=== PATIENT | female | born 1985 | race Caucasian/White ===

== ENCOUNTER 2020-07-27 00:24 | Outpatient (CLI) | payer MEDICAID, SELFPAY ==
--- NOTE | 2020-07-27 07:30 | DI.MRI_ITS ---
EXAM: MR BRAIN WO CLINICAL HISTORY: worsening headaches, new facial paresthesias,r20.2,g43.009 TECHNIQUE: Multiplanar multisequence MRI of the brain was performed. COMPARISON: No exams were available for comparison FINDINGS: The ventricular system is normal in appearance. There is question of a tiny focus abnormal signal seen DIR space imaging in the CS sub insular white matter on the left. This is not visible on T2 weighted or FLAIR images. Otherwise no abnormal signa l in the brain. This is a nonspecific finding. The orbital and temporal bone structures appear intact as does the pituitary. Diffusion weighted imaging shows no evidence of infarction. Susceptibility weighted imaging shows no evidence of intracranial hemorrhage. There is normal flow void in the [place] of [place] vasculature. IMPRESSION: Normal brain MRI except for a tiny questionable high signal focus in left subinsular white matter the left. Nonspecific finding. DATA REPOSITORY:
== END 2020-07-27 00:44 ==
PROVIDERS: PCP Family Medicine; Visit Provider Nurse Practitioner Adult Health
DX: R51.9 Headache, unspecified (principal); R20.2 Paresthesia of skin
CPT/HCPCS: 70551

== ENCOUNTER 2020-09-18 18:33 | Observation (INO) | payer MEDICAID, SELFPAY ==
[2020-09-18 18:39] VITALS: BP 142/103; PULSE 119; RESP 20; TEMP 36.2; O2SAT 97
--- NOTE | 2020-09-18 18:56 | ED.GENADUL_ITS ---
Discharge Plan Disposition Patient Disposition: [facility] Condition: Stable Discharge Details Clinical Impression: Anxiety and depression Primary Care Provider: Lakhwinder Rust ED Provider: Kianna Eduardo Home Meds and New Rx's Prescriptions: No Action magnesium oxide 500 mg tablet 500 mg PO DAILY Qty: 90 RF: 2 famotidine 40 mg tablet 40 mg PO DAILY RF: 0 calcium carbonate [Tums] 300 mg (750 mg) tablet,chewable 300 mg PO BID PRNRF: 0 Ensure Liquid PO DAILY RF: 0 fluticasone propionate [Flonase Allergy Relief] 50 mcg/actuation spray,suspension 1 spray WILEY DAILY RF: 0 ipratropium-albuterol 0.5 mg-3 mg(2.5 mg base)/3 mL solution for nebulization 3 ml IH QID PRNRF: 0 (DME) nebulizers Misc See Rx Instructions .ROUTE .MEDSUPPLY Qty: 1 RF: 0 prazosin 1 mg capsule 1 mg PO TID RF: 0 Flovent HFA 44 mcg/actuation HFA aerosol inhaler 2 puff IH BID RF: 0 cetirizine 10 mg tablet 10 mg PO DAILY RF: 0 albuterol sulfate [Proventil HFA] 90 mcg/actuation HFA aerosol inhaler 2 puff IH Q4H PRNRF: 0 lisinopril 10 mg tablet 10 mg PO DAILY RF: 0 polyethylene glycol 3350 [Miralax] 17 gram/dose powder 17 gm PO DAILY RF: 0 diazepam [Valium] 5 mg tablet 5 mg PO TID PRNRF: 0 omeprazole magnesium [Prilosec OTC] 20 mg tablet,delayed release (DR/EC) 20 mg PO DAILY RF: 0 Lidocaine Viscous 2 % solution 1 applic MM .Q 3HR RF: 0 sucralfate 1 gram tablet 1 gm PO TID RF: 0 ondansetron HCl [Zofran] 4 mg Tablet 4 mg PO Q6H PRNRF: 0 Discharge Instructions Instructions: Depression (ED), Anxiety (ED) Referrals: Lakhwinder Rust [Primary Care Provider] - (when discharged from inpatient psychiatric facility) Medical Decision Making patient presents for routine psychiatric evaluation, routine labs sent, cpso initiated. she is given GI cocktail with no relief. she requests something for anxiety. given hydroxyzine with improvement in her symptoms. labs reviewed and show signs of mild dehydration which was anticipated d/t anorexia. no electrolyte abnormalities. given 1 liter of NS. voiding well and taking PO fluids. continues to report improvement since presentation. Patient is medically cleared and ready for mental health evaluation which is completed via zoom meeting. she is agreeable to inpatient psychiatric treatment for her anxiey/depression. [place] with bed availability so rapid in house covid testing ordered Medical Records Medical records reviewed: Yes I reviewed the patient's medical records. Lab Data Lab results reviewed: Yes I reviewed the patient's lab results. Lab results narrative: Laboratory Tests Range/Units 09/18/20 09/18/20 09/18/20 19:00 19:00 19:00 WBC (4.4-10.8) 10^3/uL 14.66 H RBC (3.93-5.22) 10^6/uL 4.91 Hgb (11.2-15.7) g/dL 13.2 Hct (36.0-46.0) % 41.5 MCV (80-95) fL 84.5 MCH (27.0-33.0) pg 26.9 L MCHC (32.0-36.0) % 31.8 L RDW (11.7-14.6) % 14.3 Plt Count (130-400) 10^3/uL 305 MPV (8.0-11.0) fL 11.7 H Immature Gran % See Differential Neutrophils % 75.0 Band Neutrophils % 2 Lymphocytes % 14.0 Monocytes % 8.0 Eosinophils % 1.0 Basophils % 0.0 Nucleated RBC % % 0 Absolute Neutrophils (1.2-6.7) 10^3/uL 11.29 H Absolute Lymphocytes (1.2-3.4) 10^3/uL 2.05 Absolute Monocytes (0.1-0.8) 10^3/uL 1.17 H Absolute Eosinophils (0.0-0.7) 10^3/uL 0.15 Absolute Basophils (0.0-0.2) 10^3/uL 0.00 RBC Morphology Normal Sodium (136-145) mmol/L 137 Potassium (3.5-5.1) mmol/L 3.5 Chloride (98-107) mmol/L 101 Carbon Dioxide (21.0-32.0) mmol/L 26.4 Anion Gap (3-11) mmol/L 9.6 BUN (7-18) mg/dL 16 Creatinine (0.55-1.02) mg/dL 1.13 H Estimated GFR/1.73 m2 (mL/min/1.73m2) 54.48 Glucose (74-106) mg/dL 109 H Calcium (8.5-10.1) mg/dL 9.1 Total Bilirubin (0.2-1.0) mg/dL 0.4 AST (15-37) U/L 12 L ALT (14-59) U/L 22 Alkaline Phosphatase (46-116) U/L 93 Total Protein (6.4-8.2) g/dL 8.4 H Albumin (3.4-5.0) g/dL 4.5 TSH (0.36-3.74) uIU/mL 2.00 Urine Color (Yellow) Urine Clarity (Clear) Urine pH (5-8) Ur Specific [place] (1.005-1.025) Urine Protein (Negative) mg/dL Urine Ketones (Negative) mg/dL Urine Blood (Negative) Urine Nitrite (Negative) Urine Bilirubin (Negative) Urine Urobilinogen (Up TO 0.2) EU/dL Ur Leukocyte Esterase (Negative) Urine Glucose (Negative) mg/dL Salicylates (2.8-20.0) mg/dL 4.3 Acetaminophen (10-30) ug/mL < 2 Ethyl Alcohol (<3) mg/dL < 3.0 Range/Units 09/18/20 20:17 WBC (4.4-10.8) 10^3/uL RBC (3.93-5.22) 10^6/uL Hgb (11.2-15.7) g/dL Hct (36.0-46.0) % MCV (80-95) fL MCH (27.0-33.0) pg MCHC (32.0-36.0) % RDW (11.7-14.6) % Plt Count (130-400) 10^3/uL MPV (8.0-11.0) fL Immature Gran % Neutrophils % Band Neutrophils % Lymphocytes % Monocytes % Eosinophils % Basophils % Nucleated RBC % % Absolute Neutrophils (1.2-6.7) 10^3/uL Absolute Lymphocytes (1.2-3.4) 10^3/uL Absolute Monocytes (0.1-0.8) 10^3/uL Absolute Eosinophils (0.0-0.7) 10^3/uL Absolute Basophils (0.0-0.2) 10^3/uL RBC Morphology Sodium (136-145) mmol/L Potassium (3.5-5.1) mmol/L Chloride (98-107) mmol/L Carbon Dioxide (21.0-32.0) mmol/L Anion Gap (3-11) mmol/L BUN (7-18) mg/dL Creatinine (0.55-1.02) mg/dL Estimated GFR/1.73 m2 (mL/min/1.73m2) Glucose (74-106) mg/dL Calcium (8.5-10.1) mg/dL Total Bilirubin (0.2-1.0) mg/dL AST (15-37) U/L ALT (14-59) U/L Alkaline Phosphatase (46-116) U/L Total Protein (6.4-8.2) g/dL Albumin (3.4-5.0) g/dL TSH (0.36-3.74) uIU/mL Urine Color (Yellow) Yellow Urine Clarity (Clear) Clear Urine pH (5-8) 6.0 Ur Specific [place] (1.005-1.025) >= 1.030 H Urine Protein (Negative) mg/dL Negative Urine Ketones (Negative) mg/dL Trace H Urine Blood (Negative) Negative Urine Nitrite (Negative) Negative Urine Bilirubin (Negative) Negative Urine Urobilinogen (Up TO 0.2) EU/dL 0.2 Ur Leukocyte Esterase (Negative) Negative Urine Glucose (Negative) mg/dL Negative Salicylates (2.8-20.0) mg/dL Acetaminophen (10-30) ug/mL Ethyl Alcohol (<3) mg/dL HPI General Mode of arrival: ambulatory . Date/Time Provider Initiated Documentation: 09/18/20 18:33 . Information obtained by: patient . HPI Narrative: Presents with a several day history of anxiety associated with her symptoms of heartburn. She states she has a longstanding history of heartburn and has seen her primary care provider for this she is taking famotidine Carafate and omeprazole. She has recently been switched to pantoprazole but have been not pick that prescription up yet. She states that her p.o. intake has been poor secondary to her symptoms. She denies any dysphagia. She has had no fevers cough shortness of breath chest pain abdominal pain diarrhea or bloody stool. She states her anxiety is longstanding and she has had multiple inpatient psychiatric admissions over the past 15 years. She states she no longer feels safe due to her anxiety surrounding the symptoms and I do not want to live like this anymore Related Data Home Medications Medication Instructions Recorded Confirmed albuterol sulfate 90 mcg/actuation 2 puff IH Q4H PRN gm 05/09/20 09/18/20 aerosol inhaler cetirizine 10 mg tablet 10 mg PO DAILY 05/09/20 09/18/20 diazepam 5 mg tablet 5 mg PO TID PRN 05/09/20 09/18/20 fluticasone propionate 44 2 puff IH BID 05/09/20 09/18/20 mcg/actuation HFA aerosol inhaler fluticasone propionate 50 1 spray WILEY DAILY 05/09/20 09/18/20 mcg/actuation nasal spray,suspension food supplemt, lactose-reduced ml PO DAILY ml 05/09/20 09/13/20 ipratropium 0.5 mg-albuterol 3 mg 3 ml IH QID PRN 05/09/20 09/18/20 (2.5 mg base)/3 mL nebulization soln lidocaine HCl 2 % mucosal solution 1 applic MM .Q 3HR ml 05/09/20 09/18/20 lisinopril 10 mg tablet 10 mg PO DAILY 05/09/20 09/18/20 nebulizers #1 each 05/09/20 09/13/20 omeprazole magnesium 20 mg 20 mg PO DAILY 05/09/20 09/18/20 tablet,delayed release polyethylene glycol 3350 17 17 gm PO DAILY 05/09/20 09/18/20 gram/dose oral powder prazosin 1 mg capsule 1 mg PO TID cap 05/09/20 09/18/20 sucralfate 1 gram tablet 1 gm PO TID tab 05/09/20 09/18/20 magnesium oxide 500 mg tablet 500 mg PO DAILY #90 tab 07/13/20 09/18/20 calcium carbonate 300 mg (750 mg) 300 mg PO BID PRN 09/13/20 09/18/20 chewable tablet famotidine 40 mg tablet 40 mg PO DAILY 09/13/20 09/18/20 ondansetron HCl [Zofran] 4 mg PO Q6H PRN 09/18/20 09/18/20 Previous Rx's Medication Instructions Recorded magnesium oxide 500 mg tablet 500 mg PO DAILY #90 tab 07/13/20 Allergies Allergy/AdvReac Type Severity Reaction Status Date / Time amoxicillin [From Augmentin] Allergy Intermediate GI Verified 09/18/20 18:46 clavulanic acid Allergy Intermediate GI Verified 09/18/20 18:46 [From Augmentin] morphine Allergy Mild muscle pain Verified 09/18/20 18:46 quetiapine [From Seroquel] Allergy Mild nausea,anxi Verified 09/18/20 18:46 ety General Stated Complaint: PsychEval STEPHANIE: 2 Review of Systems All systems reviewed & are unremarkable except as noted in HPI and below Constitutional Constitutional: Reports anorexia, Reports difficulty sleeping, Reports poor appetite and Reports weakness Eyes Eyes: Denies change in vision ENT Ears, Nose, Mouth, and Throat: Denies dysphagia, Denies vertigo and Denies dizziness Cardiovascular Cardiovascular: Denies chest pain and Denies dyspnea Respiratory Respiratory: Denies cough and Denies dyspnea Gastrointestinal Gastrointestinal: Denies abdominal pain, Denies hematochezia, Denies change in bowel habits, Denies constipation, Denies dysphagia, Reports heartburn, Denies diarrhea, Denies nausea and Denies vomiting Genitourinary Genitourinary: Denies difficulty voiding Musculoskeletal Musculoskeletal: Denies back pain Neurologic Neurologic: Denies vertigo, Denies dizziness and Reports weakness Psychiatric Psychiatric: Reports anxiety, Reports change in appetite, Reports depression, Reports hopelessness and Reports suicidal ideation COUNT INCLUDES THE [facility] Medical History Allergic rhinitis Anorexia Anxiety disorder Asthma Flaherty's palsy Bipolar 1 disorder Cigarette nicotine dependence Constipation Essential hypertension Facial paresthesia GERD (gastroesophageal reflux disease) Low back pain Major depressive disorder Migraine headache without aura Reactive airway disease Recurrent sinus infections Subacute vaginitis Substance abuse Surgical History History of dilation and curettage Family History Father , 42 YEARS ALCOHOLIC Alcohol abuse Heat exhaustion Pneumonia Maternal Uncle Pulmonary arterial hypertension Social History (Reviewed 09/13/20 @ 13:04 by Roseann Alvarenga Smoking/Tobacco Use Status: Current every day Tobacco Type: cigarettes Smoking risk assessment performed?: Yes Alcohol Intake: never Drug use: Never Pets and animals: No What type of physical activity do you participate in: none Seatbelt use: always Do you feel safe at home: Yes Do you feel safe in your relationship?: Yes Exam Const General: cooperative and disheveled Nutritional Appearance: average body habitus Orientation: alert, awake and oriented x3 HENMT Head: normal to inspection, normocephalic and atraumatic Mouth: moist mucous membranes abnormal (slightly dry) Resp Effort & Inspection: normal respiratory effort Cardio Rate: tachycardic Rhythm: regular rhythm GI Inspection: normal to inspection Palpation: soft Auscultation: normal bowel sounds Skin General skin exam: no rashes or lesions noted Neuro General: patient alert, patient awake, patient oriented x3, moves all extremities and no focal motor deficits Cognition: normal cognition Speech: speech normal Extrem General: normal to inspection, full ROM and no pedal edema Psych Appearance: disheveled Mental Status: mental status grossly normal Speech and Movement: speech and movement normal Mood: anxious mood Affect: blunted Attitude: cooperative Insight: fair Judgment: fair Course Vital Signs Vital signs: Vital Signs Temperature 36.2 C L 09/18/20 18:39 Pulse 119 H 09/18/20 18:39 Respiratory Rate 20 09/18/20 18:39 Blood Pressure 142/103 H 09/18/20 18:39 Pulse Oximetry 97 09/18/20 18:39 Temperature 36.2 C L 09/18/20 18:39 Temperature Source Skin 09/18/20 18:39 Pulse 119 H 09/18/20 18:39 Respiratory Rate 20 09/18/20 18:39 Respiratory Effort Non-Labored 09/18/20 18:52 Blood Pressure 142/103 H 09/18/20 18:39 Blood Pressure Position Sitting 09/18/20 18:39 Pulse Oximetry 97 09/18/20 18:39 Oxygen Delivery Method Room Air 09/18/20 18:39 Oxygen Flow Rate 0 09/18/20 18:39 Pain Level 8 09/18/20 18:39 Comment 09/18/20 18:39
[2020-09-18 19:10] LABS: Abs Immature Grans 0.04 10^3/uL (0.0-0.06); HCT 41.5 % (36.0-46.0); HGB 13.2 g/dL (11.2-15.7); MCH 26.9 pg (27.0-33.0); MCHC 31.8 % (32.0-36.0); MCV 84.5 fL (80-95); MPV 11.7 fL (8.0-11.0); Nucleated RBC 0 %; Platelet Count 305 10^3/uL (130-400); RBC 4.91 10^6/uL (3.93-5.22); RDW 14.3 % (11.7-14.6); RDW-SD 43.8 fL
[2020-09-18 19:25] LABS: Absolute Eosinophil Count 0.15 10^3/uL (0.0-0.7); Absolute Lymphocyte Count 2.05 10^3/uL (1.2-3.4); Absolute Monocyte Count 1.17 10^3/uL (0.1-0.8); Absolute Neutrophil Count 11.29 10^3/uL (1.2-6.7); Bands % 2; Diff Comment Manual Differential; RBC Morphology Normal
[2020-09-18 19:26] LABS: WBC 14.66 10^3/uL (4.4-10.8)
[2020-09-18 19:33] LABS: ALT 22 U/L (14-59); AST 12 U/L (15-37); Albumin 4.5 g/dL (3.4-5.0); Alkaline Phosphatase 93 U/L (46-116); Anion Gap 9.6 mmol/L (3-11); BUN 16 mg/dL (7-18); Bilirubin, Total 0.4 mg/dL (0.2-1.0); CO2 26.4 mmol/L (21.0-32.0); CREATININE 1.13 mg/dL (0.55-1.02); Calcium 9.1 mg/dL (8.5-10.1); Chloride 101 mmol/L (98-107); Estimated GFR 54.48 (mL/min/1.73m2); Glucose 109 mg/dL (74-106); Potassium 3.5 mmol/L (3.5-5.1); Sodium 137 mmol/L (136-145); Total Protein 8.4 g/dL (6.4-8.2)
[2020-09-18 19:46] LABS: ETHANOL BLOOD < 3.0 mg/dL (<3)
[2020-09-18 19:48] LABS: Salicylate 4.3 mg/dL (2.8-20.0)
[2020-09-18 19:49] LABS: Acetaminophen < 2 ug/mL (10-30)
--- NOTE | 2020-09-18 19:50 | PDOC.CMSAFED ---
- If Service Date Differs Date of service: 09/18/20 Time of Service: 19:50 Care Management Safety Plan Chief Complaint: Aniya is a 35 year old female with a history of bipolar disorder, anxiety, depression, and self-harming (cutting) behaviors. Aniya reportedly had a knife earlier this evening and was threatening to harm herself. A family member called the police and Aniya was subsequently driven to the emergency department for a psychiatric evaluation. SYBIL Joel, spoke on the telephone with Aniya Root's demar, and he reported to her that Aniya has had such severe stomach pain for several months now and the pain is so severe she can't eat and can't sleep. The pain has caused Aniya to lose weight and become increasingly more depressed to the point that she is now suicidal. Aniya is seeking a voluntary psych placement. A referral has been made to the [facility]. [facility]. Patient is appropriate in all interactions since arriving at [facility]; Pt has demonstrated appropriate coping and communication skills, has articulated her needs and concerns and is fully engaged during staff interactions. Safety plan has been established with patient, and care team, to adhere to patient goals, identify restrictions based on behavioral status, address nutrition, and determine allowed personal belongings, tools for hygiene and personal care. Determine level of activity including ambulation, level of supervision, visitors, and determine privileges based on behaviors and level of engagement by pt. SAFETY PLAN: 1. Will remain on suicide precautions and in paper clothes. 2. Will remain in room under direct supervision of one-on-one staff at all times provided by [employer], KENDRICK, CLINICAL LAB ASSISTANT life skills coordinator volunteer. 3. May have paper cups, plates, finger foods as well as a cardboard spoon with which to eat meals. 4. Follow [facility] Management of the Admitted Behavioral Health Patient policy. 5. Comfort bath system only. 6. No personal belongings. 7. Visitors-No visitors at this time 8. Activities: Soft tip markers, paper, television when available, and other activities at nursing discretion. 9. Bathroom privileges: While in the ED, must be accompanied by staff. If patient is moved to Med/Surg, she will be allowed to use the bathroom in her room without supervision. 10. Phone: Patient is allowed to keep her cell phone and is allowed incoming and outgoing telephone calls to her fiance Dk, at nursing discretion. 11. Due to VOLUNTARY status, if patient wishes to leave [facility], the [facility] mop worker must be contacted to re-evaluate patient prior to patient exiting the building. Patient is currently voluntarily at [facility] and seeking inpatient admission when a bed becomes available. [facility] [employer] [employer] will continue seeking placement. Please contact the [employer] Aide Drill Runner ([phone]) and [facility] [employer] ([phone]) for any needed changes in the Safety Plan. Safety plan has been provided to interdepartmental care team.
[2020-09-18] MEDS: Acetaminophen 500 MG TAB 1000 MG PO (20:02)
[2020-09-18] MEDS: hydrOXYzine HCL 50 MG TAB PO (20:10)
[2020-09-18 20:31] LABS: Bilirubin Negative (Negative); Blood Negative (Negative); Clarity Clear (Clear); Glucose Negative (Negative); Ketones Trace mg/dL (Negative); Leukocyte Esterase Negative (Negative); Nitrite Negative (Negative); Specific Gravity >= 1.030 (1.005-1.025); Urobilinogen 0.2 EU/dL (Up TO 0.2)
[2020-09-18 20:52] LABS: *AMPHETAMINES SCREEN URINE Negative (Negative); *BARBITURATES SCREEN URINE Negative (Negative); *BENZODIAZEPINES SCREEN URINE POSITIVE (Negative); Cannabinoids THC Negative (Negative); Cocaine Screen,Urine Negative (Negative); METHADONE URINE SCREEN Negative (Negative); OPIATES URINE SCREEN Negative (Negative)
[2020-09-18 20:58] LABS: Tricyclic Antidepressants Negative (Negative)
[2020-09-18] MEDS: Normal Saline 1,000 ML 1000 ML IV (21:15)
[2020-09-18 23:02] LABS: Source Nasopharynx
[2020-09-18] MEDS: Pantoprazole 40 MG VIAL IVP (23:21)
[2020-09-18 23:34] VITALS: BP 136/86; PULSE 66; RESP 14; O2SAT 99
--- NOTE | 2020-09-18 23:41 | W.PM.HP.N ---
Date of service: 09/18/20 Time of Service: 23:41 Assessment and Plan Assessment and plan (1) Anxiety and depression: Status: Chronic Assessment and plan: Anxiety/depression: agree with inpatient management, will stand by for transfer to [place]. Will continue current regimen along with prn Vistaril, which seems to have helped. Medically, not entirely clear that her GI sxx are to be ascribed to GERD given persistence despite fairly comprehensive drug regimen. Perhaps a psychosomatic element given apparent response to Vistaril, or perhaps an as yet unspecified GI factor to be considered (esophageal spasm, consider manometry). There is also the modest leukocytosis, which at this point does not appear to have a specific medical correlate. For completeness sake I might add a lipase to exclude atypical pancreatitis and would also consider U/S to exclude biliary pathology, though both I would regard as unlikely. History of Present Illness History of Present Illness Chief Complaint: anxiety, depression Narrative: 35 female with long history of anxiety and depression, multiple admissions for same; has been having issues with increasing symptomatology over past weeks, along with exacerbation of long standing heartburn type symptoms for which she is on PPI/Carafate/H2 nash combination regimen. Has been recently talking about self harm (no specific plan) and came to ER for evaluation. In ER w/u neg save for leukocytosis of 14. No response to GI cocktail, but improved with Hydroxyzine. Accepted at [place] pending Covid results. Admitted pending transfer. Review of Systems All systems reviewed & are unremarkable except as noted in HPI and below PFSH Medical History Allergic rhinitis Anorexia Anxiety disorder Asthma Flaherty's palsy Bipolar 1 disorder Cigarette nicotine dependence Constipation Essential hypertension Facial paresthesia GERD (gastroesophageal reflux disease) Low back pain Major depressive disorder Migraine headache without aura Reactive airway disease Recurrent sinus infections Subacute vaginitis Substance abuse Surgical History History of dilation and curettage Family History Father , 42 YEARS ALCOHOLIC Alcohol abuse Heat exhaustion Pneumonia Maternal Uncle Pulmonary arterial hypertension Social History Smoking/Tobacco Use Status: Current every day Tobacco Type: cigarettes Smoking risk assessment performed?: Yes Alcohol Intake: never Drug use: Never Pets and animals: No What type of physical activity do you participate in: none Seatbelt use: always Do you feel safe at home: Yes Do you feel safe in your relationship?: Yes Meds Home Medications and Allergies Home Medications Medication Instructions Recorded Confirmed Type albuterol sulfate 90 mcg/actuation 2 puff IH Q4H PRN gm 05/09/20 09/18/20 History aerosol inhaler cetirizine 10 mg tablet 10 mg PO DAILY 05/09/20 09/18/20 History diazepam 5 mg tablet 5 mg PO TID PRN 05/09/20 09/18/20 History fluticasone propionate 44 2 puff IH BID 05/09/20 09/18/20 History mcg/actuation HFA aerosol inhaler fluticasone propionate 50 1 spray WILEY DAILY 05/09/20 09/18/20 History mcg/actuation nasal spray,suspension food supplemt, lactose-reduced ml PO DAILY ml 05/09/20 09/13/20 History ipratropium 0.5 mg-albuterol 3 mg 3 ml IH QID PRN 05/09/20 09/18/20 History (2.5 mg base)/3 mL nebulization soln lidocaine HCl 2 % mucosal solution 1 applic MM .Q 3HR ml 05/09/20 09/18/20 History lisinopril 10 mg tablet 10 mg PO DAILY 05/09/20 09/18/20 History nebulizers #1 each 05/09/20 09/13/20 History omeprazole magnesium 20 mg 20 mg PO DAILY 05/09/20 09/18/20 History tablet,delayed release polyethylene glycol 3350 17 17 gm PO DAILY 05/09/20 09/18/20 History gram/dose oral powder prazosin 1 mg capsule 1 mg PO TID cap 05/09/20 09/18/20 History sucralfate 1 gram tablet 1 gm PO TID tab 05/09/20 09/18/20 History magnesium oxide 500 mg tablet 500 mg PO DAILY #90 tab 07/13/20 09/18/20 Rx calcium carbonate 300 mg (750 mg) 300 mg PO BID PRN 09/13/20 09/18/20 History chewable tablet famotidine 40 mg tablet 40 mg PO DAILY 09/13/20 09/18/20 History ondansetron HCl [Zofran] 4 mg PO Q6H PRN 09/18/20 09/18/20 History Allergies Allergy/AdvReac Type Severity Reaction Status Date / Time amoxicillin [From Augmentin] Allergy Intermediate GI Verified 09/18/20 18:46 clavulanic acid Allergy Intermediate GI Verified 09/18/20 18:46 [From Augmentin] morphine Allergy Mild muscle pain Verified 09/18/20 18:46 quetiapine [From Seroquel] Allergy Mild nausea,anxi Verified 09/18/20 18:46 ety Exam Narrative Exam Narrative: 136/86, 66, 36.2, 14, 99% RA. HEENT unremarkable; neck supple; lungs clear; heart RRR w/o MRG; abdomen +BS, soft and NT; extremities w/o edema; neuro Ox3, somewhat flat affect, nonfocal Results Labs Result diagrams: 09/18/20 19:00 09/18/20 19:00 Labs: Laboratory Results - last 24 hr 09/18/20 09/18/20 09/18/20 19:00 19:00 19:00 WBC 14.66 H RBC 4.91 Hgb 13.2 Hct 41.5 MCV 84.5 MCH 26.9 L MCHC 31.8 L RDW 14.3 Plt Count 305 MPV 11.7 H Immature Gran % See Differential Neutrophils % 75.0 Band Neutrophils % 2 Lymphocytes % 14.0 Monocytes % 8.0 Eosinophils % 1.0 Basophils % 0.0 Nucleated RBC % 0 Absolute Neutrophils 11.29 H Absolute Lymphocytes 2.05 Absolute Monocytes 1.17 H Absolute Eosinophils 0.15 Absolute Basophils 0.00 RBC Morphology Normal Sodium 137 Potassium 3.5 Chloride 101 Carbon Dioxide 26.4 Anion Gap 9.6 BUN 16 Creatinine 1.13 H Estimated GFR/1.73 m2 54.48 Glucose 109 H Calcium 9.1 Total Bilirubin 0.4 AST 12 L ALT 22 Alkaline Phosphatase 93 Total Protein 8.4 H Albumin 4.5 TSH 2.00 Urine Color Urine Clarity Urine pH Ur Specific [place] Urine Protein Urine Ketones Urine Blood Urine Nitrite Urine Bilirubin Urine Urobilinogen Ur Leukocyte Esterase Urine Glucose Salicylates 4.3 Urine Opiates Screen Urine Methadone Screen Acetaminophen < 2 Ur Barbiturates Screen Ur Tricyclics Screen Ur Amphetamines Screen U Benzodiazepines Scrn Urine Cocaine Screen Ur THC Screen Ethyl Alcohol < 3.0 09/18/20 09/18/20 20:17 20:17 WBC RBC Hgb Hct MCV MCH MCHC RDW Plt Count MPV Immature Gran % Neutrophils % Band Neutrophils % Lymphocytes % Monocytes % Eosinophils % Basophils % Nucleated RBC % Absolute Neutrophils Absolute Lymphocytes Absolute Monocytes Absolute Eosinophils Absolute Basophils RBC Morphology Sodium Potassium Chloride Carbon Dioxide Anion Gap BUN Creatinine Estimated GFR/1.73 m2 Glucose Calcium Total Bilirubin AST ALT Alkaline Phosphatase Total Protein Albumin TSH Urine Color Yellow Urine Clarity Clear Urine pH 6.0 Ur Specific [place] >= 1.030 H Urine Protein Negative Urine Ketones Trace H Urine Blood Negative Urine Nitrite Negative Urine Bilirubin Negative Urine Urobilinogen 0.2 Ur Leukocyte Esterase Negative Urine Glucose Negative Salicylates Urine Opiates Screen Negative Urine Methadone Screen Negative Acetaminophen Ur Barbiturates Screen Negative Ur Tricyclics Screen Negative Ur Amphetamines Screen Negative U Benzodiazepines Scrn Positive A Urine Cocaine Screen Negative Ur THC Screen Negative Ethyl Alcohol Last Vital Signs Temp 36.2 C L 09/18/20 18:39 Pulse 66 09/18/20 23:34 Resp 14 09/18/20 23:34 BP 136/86 09/18/20 23:34 Pulse Ox 99 09/18/20 23:34 COVID-19 Screening Have you, or household traveled for leisure in last 14 days?: No Had IN PERSON contact w/suspected or confirmed C-19 person: No
[2020-09-18 23:47] LABS: COVID-19 PCR Negative (Negative); Influenza A PCR Negative (Negative); Influenza B PCR Negative (Negative); RSV PCR Negative (Negative)
--- NOTE | 2020-09-19 00:13 | PDOC.MHPN2 ---
Date of service: 09/19/20 Time of Service: 00:24 Mental Health Progress Note Progress Note Progress Note: Presenting Issue: Client presented to [facility] ED upon private transport from a family member, escorted by P. VSP reports charito received a call from friend of client who reported client made vague suicidal statements to him via video chat, and also had a knife in her possession during their chat. Charito performed a motor vehicle stop on client's vehicle after she left her home, and ensured client present for a lethality assessment. Precipitating Factors Client reports her physical symptoms related to her acid reflux/GERD are exacerbating her depression, and are contributing significantly to her SI. Client feels hopeless and unheard by her doctors, and feels that she will never find relief. Client states she feels like her body is shutting down, and that I'd be better off not being around. Client reports a plan to end her life, stating, thereis a spot on your wrist that if you cut it right, they won't be able to stop the bleeding. I'll cut my arm there. I saw it on Youtube. Disposition * Behavior: Client is cooperative with this fiction and nonfiction prose writer, and agreeable to inpatient hospitalization. Client is forthcoming regarding her SI, and appropriate with hospital tablet. *Eye Contact: Client provides good eye contact, though she is drowsy *Mood: depressed *Affect: flat *Appetite: poor *Sleep(troubel falling/staying asleep): poor Plan(please elaborate and include that physician is consulted with plan and/or placement): Client will remain at [facility] to await placement. Referral sent to [facility]. Clinician's Name , Title, and Signature Twyla Ng Sql Ssrs Developer [facility] Make sure that you are photocopying and submitting this to [facility] records Dept. to be scanned into chart.
[2020-09-19 00:17] LABS: Lipase 90 U/L (73-393)
[2020-09-19 00:55] VITALS: BP 107/69; PULSE 69; RESP 18; TEMP 35.9; O2SAT 98
[2020-09-19] MEDS: Calcium Carbonate *TUMS* 500 MG CHEW PO ×3 (06:34→14:55)
[2020-09-19 07:32] LABS: HCT 36.4 % (36.0-46.0); HGB 11.7 g/dL (11.2-15.7); MCH 27.1 pg (27.0-33.0); MCHC 32.1 % (32.0-36.0); MCV 84.5 fL (80-95); MPV 12.5 fL (8.0-11.0); Platelet Count 240 10^3/uL (130-400); RBC 4.31 10^6/uL (3.93-5.22); RDW 14.6 % (11.7-14.6); RDW-SD 44.6 fL; WBC 7.76 10^3/uL (4.4-10.8)
[2020-09-19] MEDS: Sucralfate 1 GM TAB PO ×2 (07:45→11:30)
[2020-09-19] MEDS: Omeprazole 20 MG CAPCR PO (07:45)
[2020-09-19] MEDS: Famotidine 20 MG TAB 40 MG PO (07:45)
[2020-09-19 07:54] VITALS: BP 120/67; PULSE 65; RESP 14; TEMP 36.6; O2SAT 95
--- NOTE | 2020-09-19 08:03 | CMSP_ITS ---
- If Service Date Differs Date of service: 09/19/20 Time of Service: 08:03 Care Management Safety Plan Huddle to review the safety plan conducted with [facility] Crisis Jose, Primary RN, Bill and RN curtain supervisor SYBIL Richards CM FOR INPATIENT PSYCHIATRIC STABILIZATION. Patient is appropriate in all interactions since arriving at [facility]; Pt has demonstrated appropriate coping and communication skills, has articulated her needs and concerns and is fully engaged during staff interactions. Safety plan has been established with patient, and care team, to adhere to patient goals, identify restrictions based on behavioral status, address nutrition, and determine allowed personal belongings, tools for hygiene and personal care. Determine level of activity including ambulation, level of supervision, visitors, and determine privileges based on behaviors and level of engagement by pt. SAFETY PLAN: 1. Will remain on suicide precautions and in paper clothes. 2. Will remain in room under direct supervision of one-on-one staff at all times provided by CPSO, KENDRICK, LINK WIRE FABRIC MACHINE OPERATOR speech communication professor. 3. May have paper cups, plates, finger foods as well as a cardboard spoon with which to eat meals. 4. Follow [facility] Management of the Admitted Behavioral Health Patient policy. 5. Comfort wipes or shower at the discretion 6. No personal belongings 7. Visitors-No visitors at this time 8. Activities: Soft tip markers, paper, television when available, and other activities at nursing discretion. 9. Bathroom privileges 10. Phone: At the discretion of primary care team 11. Due to VOLUNTARY status, if patient wishes to leave [facility], the [facility] student worker must be contacted to re-evaluate patient prior to patient exiting the building. [facility]. [facility] will contact all accepting facilities and continue with the referral process for inpatient psychiatric stabilization. Patient is currently voluntarily at [facility] and seeking inpatient admission when a bed becomes available. [facility] Frontline Manager Inpatient will continue seeking placement. Please contact the Paste Up Worker Decorator Lighting [employer]xtures ([phone]) and [facility] Manager Inpatient ([phone]) for any needed changes in the Safety Plan. Safety plan has been provided to interdepartmental care team.
--- NOTE | 2020-09-19 11:28 | PDOC.MHCN_ITS ---
Date of service: 09/19/20 Time of Service: 10:00 Mental Health Crisis Note Presenting Issue How did you arrive at the ED and why did you come: Client arrived to [facility] ED via private transportation and P escort. Client's friend called [facility] due to suicidal statements made by client as well as client's access to lethal means at the time. Precipitating Factors Client endorsed SI. Client states she was looking around the her room at [facility] to see if she could find something she could use. There is no evidence of delusion Disposition BEHAVIOR: Client was cooperative during this assessment. Client expressed feeling tired and reports having no energy. Client repo EYE CONTACT: Client struggled to maintain eye contact during this assessment. Client stated she felt really tired and drowsy. MOOD: Client presented with depressed mood and hopelessness. Client also expressed feeling anxious AFFECT: Client presented with flat affect APPETITE: Client stated she was able to eat a little bit. Client still reports poor appetite SLEEP(trouble falling/staying asleep: Client reported some sleep disturbance. Client states she still feels very tired and drained. Plan Client still remains on voluntary status at [facility] awaiting placement for in- patient psychiatric treatment. Referral has been sent to [facility] for evaluation and possible placement there. Client's covid test came back negative and the results has also been sent to [facility]. Signature Clinician's Name/Title: Lianne Dang Emergency Services Clinician
--- NOTE | 2020-09-19 14:06 | W.PM.DS.N ---
Date of service: 09/19/20 Time of Service: 14:07 DS: Diagnosis Discharge Diagnosis (1) Anxiety and depression: Status: Chronic Discharge Plan Disposition Patient Disposition: [facility] Condition: Stable Discharge Details Reason For Visit: ANXIETY, DEPRESSION, HEARTBURN Admit Date/Time: 09/19/20 00:00 Admit Provider: Adan Stark Attending Provider: Adan Stark [facility] Hospital Course: This is a 35 female with long history of anxiety and depression, multiple admissions for same; has been having issues with increasing symptoms over past weeks, along with exacerbation of long standing heartburn type symptoms for which she is on PPI/Carafate/H2 nash combination regimen. Has been recently talking about self harm (no specific plan) and came to ER for evaluation. In ER w/u neg save for leukocytosis of 14. No response to GI cocktail, but improved with Hydroxyzine. Accepted at [place] and has negative Covid results. no behavioral issues overnight. remains hemodynamically stable. no new c/o. we have been notified of bed availability and she will be transported by [facility] department. discussed with Dr Cornejo. Home Meds and New Rx's Prescriptions: Continued magnesium oxide 500 mg tablet 500 mg PO DAILY Qty: 90 RF: 2 famotidine 40 mg tablet 40 mg PO DAILY RF: 0 calcium carbonate [Tums] 300 mg (750 mg) tablet,chewable 300 mg PO BID PRNRF: 0 Ensure Liquid PO DAILY RF: 0 fluticasone propionate [Flonase Allergy Relief] 50 mcg/actuation spray,suspension 1 spray WILEY DAILY RF: 0 ipratropium-albuterol 0.5 mg-3 mg(2.5 mg base)/3 mL solution for nebulization 3 ml IH QID PRNRF: 0 (DME) nebulizers Misc See Rx Instructions .ROUTE .MEDSUPPLY Qty: 1 RF: 0 prazosin 1 mg capsule 1 mg PO TID RF: 0 Flovent HFA 44 mcg/actuation HFA aerosol inhaler 2 puff IH BID RF: 0 cetirizine 10 mg tablet 10 mg PO DAILY RF: 0 albuterol sulfate [Proventil HFA] 90 mcg/actuation HFA aerosol inhaler 2 puff IH Q4H PRNRF: 0 lisinopril 10 mg tablet 10 mg PO DAILY RF: 0 polyethylene glycol 3350 [Miralax] 17 gram/dose powder 17 gm PO DAILY RF: 0 diazepam [Valium] 5 mg tablet 5 mg PO TID PRNRF: 0 omeprazole magnesium [Prilosec OTC] 20 mg tablet,delayed release (DR/EC) 20 mg PO DAILY RF: 0 Lidocaine Viscous 2 % solution 1 applic MM .Q 3HR RF: 0 sucralfate 1 gram tablet 1 gm PO TID RF: 0 ondansetron HCl [Zofran] 4 mg Tablet 4 mg PO Q6H PRNRF: 0 Discharge Instructions Instructions: Depression (ED), Anxiety (ED), Suicide Prevention (DC) Referrals: Lakhwinder Rust [Primary Care Provider] - (when discharged from inpatient psychiatric facility) Activity:: Activity as Tolerated Equipment/Supplies:: No Equipment Needed Diet:: As Tolerated Discharge Orders Discharge Orders: Discharge Order (Routine); Ordered 09/19/20 Ordered By: Kianna Eduardo DS: Summary Status at Discharge Functional status at discharge: independent ambulation Overall status at discharge: patient is not back to baseline Mental Status: mental status grossly normal Speech and Movement: speech and movement normal Mood: anxious mood Affect: blunted Exam Const General: cooperative and disheveled Nutritional Appearance: average body habitus Orientation: alert, awake and oriented x3 HENMT Head: normal to inspection, normocephalic and atraumatic Mouth: moist mucous membranes abnormal (slightly dry) Resp Effort & Inspection: normal respiratory effort Cardio Rate: tachycardic Rhythm: regular rhythm GI Inspection: normal to inspection Palpation: soft Auscultation: normal bowel sounds Skin General skin exam: no rashes or lesions noted Neuro General: patient alert, patient awake, patient oriented x3, moves all extremities and no focal motor deficits Cognition: normal cognition Speech: speech normal Extrem General: normal to inspection, full ROM and no pedal edema Psych Appearance: disheveled Mental Status: mental status grossly normal Speech and Movement: speech and movement normal Mood: anxious mood Affect: blunted Attitude: cooperative Insight: fair Judgment: fair DS: Data Vitals/I&O Vitals and I&O: Vital Signs Temperature 36.6 C 09/19/20 07:54 Temperature Source Temporal Artery Scan 09/19/20 07:54 Pulse 65 09/19/20 07:54 Pulse Rhythm Regular 09/19/20 06:44 Respiratory Rate 14 09/19/20 07:54 Respiratory Effort Non-Labored 09/19/20 06:44 Respiratory Depth Normal 09/19/20 06:44 Respiratory Pattern Normal 09/19/20 06:44 Blood Pressure 120/67 09/19/20 07:54 Blood Pressure Position Sitting 09/18/20 18:39 Pulse Oximetry 95 09/19/20 07:54 Oxygen Delivery Method Room Air 09/19/20 07:54 Oxygen Flow Rate 0 09/19/20 07:54 Pain Level 8 09/18/20 18:39 Comment 09/18/20 18:39 Intake & Output 09/18/20 09/19/20 09/19/20 23:59 11:59 23:59 Intake Total 1480 / 1480 Balance 1480 / 1480 Weight 70.307 kg 70.307 kg Intake: IV 1000 / 1000 Oral 480 / 480 Data Completed and Pending Labs on day of discharge: Labs from last 24 hours 09/19/20 09/19/20 09/18/20 06:28 00:00 22:53 WBC 7.76 D RBC 4.31 Hgb 11.7 Hct 36.4 MCV 84.5 MCH 27.1 MCHC 32.1 RDW 14.6 Plt Count 240 MPV 12.5 H Immature Gran % Neutrophils % Band Neutrophils % Lymphocytes % Monocytes % Eosinophils % Basophils % Nucleated RBC % Absolute Neutrophils Absolute Lymphocytes Absolute Monocytes Absolute Eosinophils Absolute Basophils RBC Morphology Sodium Potassium Chloride Carbon Dioxide Anion Gap BUN Creatinine Estimated GFR/1.73 m2 Glucose Calcium Total Bilirubin AST ALT Alkaline Phosphatase Total Protein Albumin Lipase 90 TSH Urine Color Urine Clarity Urine pH Ur Specific [place] Urine Protein Urine Ketones Urine Blood Urine Nitrite Urine Bilirubin Urine Urobilinogen Ur Leukocyte Esterase Urine Glucose Salicylates Urine Opiates Screen Urine Methadone Screen Acetaminophen Ur Barbiturates Screen Ur Tricyclics Screen Ur Amphetamines Screen U Benzodiazepines Scrn Urine Cocaine Screen Ur THC Screen Ethyl Alcohol COVID-19 Source Nasopharynx COVID-19 PCR Negative Influenza Type A (PCR) Negative Influenza Type B (PCR) Negative RSV (PCR) Negative 09/18/20 09/18/20 09/18/20 20:17 20:17 19:00 WBC 14.66 H RBC 4.91 Hgb 13.2 Hct 41.5 MCV 84.5 MCH 26.9 L MCHC 31.8 L RDW 14.3 Plt Count 305 MPV 11.7 H Immature Gran % See Differential Neutrophils % 75.0 Band Neutrophils % 2 Lymphocytes % 14.0 Monocytes % 8.0 Eosinophils % 1.0 Basophils % 0.0 Nucleated RBC % 0 Absolute Neutrophils 11.29 H Absolute Lymphocytes 2.05 Absolute Monocytes 1.17 H Absolute Eosinophils 0.15 Absolute Basophils 0.00 RBC Morphology Normal Sodium Potassium Chloride Carbon Dioxide Anion Gap BUN Creatinine Estimated GFR/1.73 m2 Glucose Calcium Total Bilirubin AST ALT Alkaline Phosphatase Total Protein Albumin Lipase TSH Urine Color Yellow Urine Clarity Clear Urine pH 6.0 Ur Specific [place] >= 1.030 H Urine Protein Negative Urine Ketones Trace H Urine Blood Negative Urine Nitrite Negative Urine Bilirubin Negative Urine Urobilinogen 0.2 Ur Leukocyte Esterase Negative Urine Glucose Negative Salicylates Urine Opiates Screen Negative Urine Methadone Screen Negative Acetaminophen Ur Barbiturates Screen Negative Ur Tricyclics Screen Negative Ur Amphetamines Screen Negative U Benzodiazepines Scrn Positive A Urine Cocaine Screen Negative Ur THC Screen Negative Ethyl Alcohol COVID-19 Source COVID-19 PCR Influenza Type A (PCR) Influenza Type B (PCR) RSV (PCR) 09/18/20 09/18/20 19:00 19:00 WBC RBC Hgb Hct MCV MCH MCHC RDW Plt Count MPV Immature Gran % Neutrophils % Band Neutrophils % Lymphocytes % Monocytes % Eosinophils % Basophils % Nucleated RBC % Absolute Neutrophils Absolute Lymphocytes Absolute Monocytes Absolute Eosinophils Absolute Basophils RBC Morphology Sodium 137 Potassium 3.5 Chloride 101 Carbon Dioxide 26.4 Anion Gap 9.6 BUN 16 Creatinine 1.13 H Estimated GFR/1.73 m2 54.48 Glucose 109 H Calcium 9.1 Total Bilirubin 0.4 AST 12 L ALT 22 Alkaline Phosphatase 93 Total Protein 8.4 H Albumin 4.5 Lipase TSH 2.00 Urine Color Urine Clarity Urine pH Ur Specific Cotton [place] Urine Protein Urine Ketones Urine Blood Urine Nitrite Urine Bilirubin Urine Urobilinogen Ur Leukocyte Esterase Urine Glucose Salicylates 4.3 Urine Opiates Screen Urine Methadone Screen Acetaminophen < 2 Ur Barbiturates Screen Ur Tricyclics Screen Ur Amphetamines Screen U Benzodiazepines Scrn Urine Cocaine Screen Ur THC Screen Ethyl Alcohol < 3.0 COVID-19 Source COVID-19 PCR Influenza Type A (PCR) Influenza Type B (PCR) RSV (PCR) [facility] History Allergic rhinitis Anorexia Anxiety disorder Asthma Flaherty's palsy Bipolar 1 disorder Cigarette nicotine dependence Constipation Essential hypertension Facial paresthesia GERD (gastroesophageal reflux disease) Low back pain Major depressive disorder Migraine headache without aura Reactive airway disease Recurrent sinus infections Subacute vaginitis Substance abuse Surgical History History of dilation and curettage Family History Father , 42 YEARS ALCOHOLIC Alcohol abuse Heat exhaustion Pneumonia Maternal Uncle Pulmonary arterial hypertension Social History Smoking/Tobacco Use Status: Current every day Tobacco Type: cigarettes Smoking risk assessment performed?: Yes Alcohol Intake: never Drug use: Never Pets and animals: No What type of physical activity do you participate in: none Seatbelt use: always Do you feel safe at home: Yes Do you feel safe in your relationship?: Yes
--- NOTE | 2020-09-19 14:28 | PDOC.CMDIS ---
- If Service Date Differs Date of service: 09/19/20 Time of Service: 14:28 LACE Index Scoring Tool - Questions: Length of Stay (in days): 1 Acuity (Admit via E.D.?): Yes E.D. Visits: 1 - Answers: Total Score: 5 Risk of Readmission: Low Risk Care Management Discharge Reason for Hospitalization: SI Discharge Plan: Aniya is being discharged to . She agrees with the plan she states that her stomach issues have affected her quality of life and its frustrating to not have answers for her symptoms. She states she has been to before and knows the routine. She is aware that she will be transported via [employer] and will leave here at 1500. Aniya was offered the phone to make a call prior to leaving she declines at this time. CM coordinated transportation and notified [employer] Drawer [employer]. Patient/Family Education Needs: Education related to placement, transportation and self care. Services Needed at Discharge: Psychiatric Facility, Transportation - MH Services (Omit if N/A) Current MH Services: Psychiatric Inp
== END 2020-09-19 15:30 | disposition short-term general hospital (02) ==
LOC: ER 09-19 00:10 → MS 09-19 00:35
PROVIDERS: Admitting Provider General Practice; Emergency Provider Nurse Practitioner Acute Care; PCP Family Medicine; Visit Provider General Practice
DX: F41.9 Anxiety disorder, unspecified (principal); F31.9 Bipolar disorder, unspecified; E86.0 Dehydration; K21.9 Gastro-esophageal reflux disease without esophagitis; J45.909 Unspecified asthma, uncomplicated; F17.210 Nicotine dependence, cigarettes, uncomplicated; I10 Essential (primary) hypertension; K59.00 Constipation, unspecified; M54.5 Low back pain; Z79.899 Other long term (current) drug therapy; Z11.59 Encounter for screening for other viral diseases
CPT/HCPCS: 36415; 80053; 80307; 81025; 83690; 85027; 96361; 96374; 99217; 99222; 99285; 80320; 80329; 81003; 84443; 85025; 99219; 99284; G0378; J3490

== ENCOUNTER 2021-06-19 03:39 | Outpatient (CLI) | payer MEDICAID, SELFPAY ==
[2021-06-21 10:57] LABS: Cat Epithelium IgE <0.35 kU/L; Cladosporium IgE <0.35 kU/L; Cocklebur IgE <0.35 kU/L; Dog Dander IgE <0.35 kU/L; Lamb's Quarter IgE <0.35 kU/L; Short Ragweed IgE <0.35 kU/L; Timothy Grass IgE <0.35 kU/L; Wormwood IgE <0.35 kU/L
[2021-06-22 12:24] LABS: Alternaria Tenuis IgE <0.35 kU/L; Aspergillus Fumigatus IgE <0.35 kU/L; Bermuda Grass IgE <0.35 kU/L; Cockroach IgE <0.35 kU/L; Cottonwood IgE <0.35 kU/L; D Farinae IgE <0.35 kU/L; D Pteronyssinus IgE <0.35 kU/L; Eastern Sycamore IgE <0.35 kU/L; Elm IgE <0.35 kU/L; Epicoccum purpurascens IgE <0.35 kU/L; Giant Ragweed IgE <0.35 kU/L; Oak IgE <0.35 kU/L; Penicillium chrysogenum IgE <0.35 kU/L; Red Sorrel IgE <0.35 kU/L; Rough Pigweed IgE <0.35 kU/L; Silver Birch IgE <0.35 kU/L; Stemphyllium IgE <0.35 kU/L; Walnut Tree IgE <0.35 kU/L
[2021-06-26 17:56] LABS: CLASS 0; Cedar Red IgE <0.10 kU/L (<0.35); Fusarium oxysporum/vasinfectum <0.35 kU/L (<0.35); Rhodotorula IgE <0.35 kU/L (<0.35)
== END 2021-06-19 03:40 | disposition home or self-care (01) ==
LOC: LBO 03:39
PROVIDERS: PCP Family Medicine; Visit Provider Otolaryngology Otolaryngology/Facial Plastic Surgery
DX: R51.9 Headache, unspecified (principal); J32.0 Chronic maxillary sinusitis; J45.909 Unspecified asthma, uncomplicated; Z01.82 Encounter for allergy testing
CPT/HCPCS: 36415; 86003

== ENCOUNTER 2021-11-21 18:46 | Emergency (ER) | payer MEDICAID, SELFPAY ==
[2021-11-21] VITALS (29 sets, daily range): BP systolic 90–104; BP diastolic 49–65; PULSE 59–77; RESP 11–26; TEMP 36.5; O2SAT 98–100
--- NOTE | 2021-11-21 18:45 | RT.EKG_ITS ---
APPROVED REPORT Exam: Resting ECG Reason for Exam: chest pain Patient Location: E HR:72 bpm ECG Measurements Heart Rate 72 AXIS IL 122 P 27 QRSd 82 QRS 28 QT 387 T 33 QTc 424 Conclusion Sinus rhythm...normal P axis, V-rate 60- 99
--- NOTE | 2021-11-21 19:15 | DI.CT_ITS ---
Exam(s) CT THORAX ABD/PEL CTA EXAM: CT THORAX ABD/PEL CTA TECHNIQUE: CT angiography of the chest, abdomen and pelvis was performed with bolus infusion of 100 cc of Omnipaque 350. Axial CT angiography was performed with multi-slice acquisition and multi-planar and/or 3D reconstruc tions. COMPARISON: No exams were available for comparison FINDINGS: Note is made of an implanted device in the left chest wall. A lead terminates anterior to the sternu m. The lungs are clear. No pleural effusion. No evidence of pulmonary embolic disease. No thoracic aorti c dissection or aneurysm. Major branches of the thoracic aorta appear normal. No pleural effusion. N o mediastinal or hilar adenopathy. Tracheobronchial tree appears intact. No focal hepatic or renal abnormality seen. The gallbladder wall appears mildly thickened and enhanc es, this could be associated with chronic or acute inflammation, please correlate clinically. No lino iary dilatation seen.. Pancreas is unremarkable. Spleen is unremarkable. No abdominal aortic aneurysm or dissection. Major branches of the abdominal aorta appear normal. No a bdominal or pelvic adenopathy. Normal appendix. No significant abdominal wall hernia. No focal bowel pathology. IMPRESSION: No evidence of acute vascular abnormality of the chest, abdomen or pelvis. Wall thickening and enhan cement of the gallbladder, this is a nonspecific finding but could be associated with inflammation, p lease correlate clinically.. RADIATION DOSE DELIVERED: 939.51mGy.cm Total DLP 939.51mGy.cm Total DLP 939.51mGy.cm Total DLP CTDIvol DATA REPOSITORY: All CT scans at this facility are submitted to the National Radiology Data Registry (NRDR) Dose Index Registry (DIR) with the [employer] (ACR). RADIATION OPTIMIZATION: All CT scans at this facility use at least one of these dose optimization te chniques: automated exposure control; mA and/or kV adjustment per patient size (includes targeted exa ms where dose is matched to clinical indication); or iterative reconstruction.
[2021-11-21 19:32] LABS: Abs Immature Grans 0.04 10^3/uL (0.0-0.06); Absolute Basophil Count 0.12 10^3/uL (0.0-0.2); Absolute Eosinophil Count 0.67 10^3/uL (0.0-0.7); Absolute Lymphocyte Count 3.65 10^3/uL (1.2-3.4); Absolute Monocyte Count 0.73 10^3/uL (0.1-0.8); Absolute Neutrophil Count 5.49 10^3/uL (1.2-6.7); Basophils % 1.1; Eosinophils % 6.3; HCT 33.9 % (36.0-46.0); HGB 10.2 g/dL (11.2-15.7); Immature Grans % 0.4; Lymphocytes % 34.1; MCH 25.9 pg (27.0-33.0); MCHC 30.1 % (32.0-36.0); MPV 11.5 fL (8.0-11.0); Monocytes % 6.8; Neutrophils % 51.3; Nucleated RBC 0 %; Platelet Count 454 10^3/uL (130-400); RBC 3.94 10^6/uL (3.93-5.22); RDW-SD 52.5 fL
[2021-11-21 19:44] LABS: ALT 46 U/L (14-59); AST 17 U/L (15-37); Albumin 3.8 g/dL (3.4-5.0); Alkaline Phosphatase 80 U/L (46-116); Anion Gap 11.7 mmol/L (3-11); BUN 16 mg/dL (7-18); Bilirubin, Total 0.3 mg/dL (0.2-1.0); CO2 28.3 mmol/L (21.0-32.0); Calcium 9.3 mg/dL (8.5-10.1); Chloride 101 mmol/L (98-107); Glucose 98 mg/dL (74-106); Potassium 4.1 mmol/L (3.5-5.1); Sodium 141 mmol/L (136-145); Total Protein 7.6 g/dL (6.4-8.2); Troponin I < 50 ng/L (<or=60)
--- NOTE | 2021-11-21 20:54 | DI.VRAD_ITS ---
PROCEDURE INFORMATION: Exam: CTA Chest With Contrast Exam date and time: 11/21/2021 7:21 PM Age: 36 years old Clinical indication: Pain; Chest pressure; Prior surgery; Surgery date: 6+ months TECHNIQUE: Imaging protocol: Computed tomographic angiography of the chest with contrast. 3D rendering (Not supervised by radiologist): MIP and/or 3D reconstructed images were created by the technologist. Contrast material: OMNIPAQUE 350; Contrast volume: 100 ml; Contrast route: INTRAVENOUS (IV); COMPARISON: No relevant prior studies available. FINDINGS: Tubes, catheters and devices: There is an implanted electronic device within the left chest wall with electrode terminating anterior to the manubrium. Pulmonary arteries: Normal. No pulmonary emboli. Aorta: Unremarkable. No aortic aneurysm. No aortic dissection. Lungs: Mild subpleural bleb formation is present on the right. There is no segmental or lobar consolidation. Pleural spaces: Unremarkable. No pneumothorax. No pleural effusion. Heart: Unremarkable. No cardiomegaly. No pericardial effusion. Lymph nodes: Unremarkable. No enlarged lymph nodes. Bones/joints: Unremarkable. No acute fracture. Soft tissues: Unremarkable. IMPRESSION: 1. No evidence of pulmonary embolism. 2. Implanted electronic device as described above. PROCEDURE INFORMATION: Exam: CTA Abdomen and Pelvis With Contrast Exam date and time: 11/21/2021 7:21 PM Age: 36 years old Clinical indication: Pain; Chest pressure; Prior surgery; Surgery date: 6+ months TECHNIQUE: Imaging protocol: Computed tomographic angiography of the abdomen and pelvis with contrast material. 3D rendering (Not supervised by radiologist): MIP and/or 3D reconstructed images were created by the technologist. Contrast material: OMNIPAQUE 350; Contrast volume: 100 ml; Contrast route: INTRAVENOUS (IV); COMPARISON: No relevant prior studies available. FINDINGS: Aorta: No aortic aneurysm. No aortic dissection. Celiac trunk and mesenteric arteries: No occlusion or significant stenosis. Renal arteries: No occlusion or significant stenosis. Right iliac arteries: No occlusion or significant stenosis. Left iliac arteries: No occlusion or significant stenosis. Liver: No mass. The liver appears diffusely decreased in density. Gallbladder and bile ducts: The gallbladder wall is mildly thickened and enhancing. No pericholecystic fluid is seen. No calcified stones. No ductal dilation. Pancreas: Unremarkable. No mass. No ductal dilation. Spleen: Unremarkable. No splenomegaly. Adrenal glands: Unremarkable. No mass. Kidneys and ureters: Unremarkable. No solid mass. No hydronephrosis. Stomach and bowel: Mild diverticulosis of the colon is present. There is no evidence of bowel obstruction. Appendix: No evidence of appendicitis. Intraperitoneal space: Unremarkable. No free air. No significant fluid collection. Lymph nodes: Unremarkable. No enlarged lymph nodes. Urinary bladder: Unremarkable. No mass. Reproductive: The uterus is anteverted with a small amount of fluid within the endometrium. Bones/joints: No acute fracture. No dislocation. Soft tissues: Unremarkable. IMPRESSION: 1. Mild diverticulosis. 2. Fatty liver disease. 3. Mild gallbladder wall thickening and enhancement suggestive of chronic cholecystitis or adenomyomatosis. 4. No evidence of arterial obstruction or aneurysm. Dictated and Authenticated by: Harsha Fletcher MD. Ordering:CHASIDY Kinsey MD
--- NOTE | 2021-11-21 21:20 | ED.GENADUL_ITS ---
Discharge Plan Disposition Patient Disposition: HOME Condition: Stable Discharge Details Clinical Impression: Chest discomfort, Low blood pressure, not hypotension, Thickening of wall of gallbladder, Fatigue, Anemia Primary Care Provider: Lakhwinder Rust ED Provider: Tio Simms Home Meds and New Rx's Prescriptions: No Action magnesium oxide 500 mg tablet 500 mg PO DAILY Qty: 90 RF: 2 famotidine 40 mg tablet 40 mg PO DAILY RF: 0 fluticasone propionate [Flonase Allergy Relief] 50 mcg/actuation spray,suspension 1 spray WILEY DAILY RF: 0 ipratropium-albuterol 0.5 mg-3 mg(2.5 mg base)/3 mL solution for nebulization 3 ml IH QID PRNRF: 0 (DME) nebulizers Misc See Rx Instructions .ROUTE .MEDSUPPLY Qty: 1 RF: 0 prazosin 1 mg capsule 1 mg PO TID RF: 0 Flovent HFA 44 mcg/actuation HFA aerosol inhaler 2 puff IH BID RF: 0 cetirizine 10 mg tablet 10 mg PO DAILY RF: 0 albuterol sulfate [Proventil HFA] 90 mcg/actuation HFA aerosol inhaler 2 puff IH Q4H PRNRF: 0 lisinopril 10 mg tablet 10 mg PO DAILY RF: 0 polyethylene glycol 3350 [Miralax] 17 gram/dose powder 17 gm PO DAILY RF: 0 diazepam [Valium] 5 mg tablet 5 mg PO TID PRNRF: 0 omeprazole magnesium [Prilosec OTC] 20 mg tablet,delayed release (DR/EC) 20 mg PO DAILY RF: 0 Lidocaine Viscous 2 % solution 1 applic MM .Q 3HR RF: 0 ondansetron HCl [Zofran] 4 mg Tablet 4 mg PO Q6H PRNRF: 0 Discharge Instructions Instructions: Chest Pain (ED), Fatigue (ED), Anemia (ED) Additional Instructions: Full medication reconciliation could not be performed today. Please take your medication as prescribed. Please follow-up with your [employer]. Call tomorrow. Your blood pressure was low normal here in the emergency department and seems particularly low for you given chronic hypertension in the past. Your blood pressure ranged from 90- 100 systolic. This may be contributing to your symptoms. Please be sure to discuss with your [employer] tomorrow. Blood work revealed anemia. You have a hemoglobin level of 10.2. This may be contributing to your symptoms. Please be sure to discuss this with your [employer]. Your EKG and cardiac enzyme testing were nondiagnostic. CT a of your chest, abdomen and pelvis did not show any acute cardiac or pulmonary findings. Incidentally noted was mild diverticulosis, fatty liver disease, mild gallbladder wall thickening and enhancement suggestive of chronic cholecystitis or adenomyomatosis. Please discuss with your primary care physician as soon as possible. Please contact your primary care physician to arrange follow-up. Return to the ER immediately for any worsening or new concerning symptoms. Referrals: Lakhwinder Rust [Primary Care Provider] - Medical Decision Making 36-year-old female with multiple medical problems including V. fib cardiac arrest secondary to coronary spasm, status post ICD placement, here with chest discomfort heaviness in her arms bilaterally, generalized fatigue, lig htheadedness. Considered pulmonary embolism, rib fracture, pericardial effusion, or other acute life-threatening surgical process. CTA of the chest was reviewed and interpreted by radiology:IMPRESSION: 1. No evidence of pulmonary embolism. 2. Implanted electronic device as described above. CTA of the abdomen pelvis was reviewed and interpreted by radiology:IMPRESSION: 1. Mild diverticulosis. 2. Fatty liver disease. 3. Mild gallbladder wall thickening and enhancement suggestive of chronic cholecystitis or adenomyomatosis. 4. No evidence of arterial obstruction or aneurysm. Considered ACS. EKG was reviewed and interpreted by me: Please see report, sinus rhythm, no STEMI. Initial troponin negative. Plan for delta troponin. I discussed plan with patient and she provided informed refusal of continued ED observation and delta troponin at 3-hour. She is agreeable to having a second troponin drawn at this time and understands limitations and risks of this diagnostic test and recommendation for additional ED observation. Patient's blood pressure has remained low normal here in ED. She notes she has been hypertensive regularly in the past prior to her cardiac event with usual systolic blood pressure 160s to 170s. Patient is now multiple antihypertensive medication per discharge summary including amlodipine and lisinopril. I am concerned that she may not need such aggressive blood pressure control. Patient has follow-up with her [employer] scheduled for 11/23/2021. I have encouraged her to call and speak with her helper [employer] tomorrow about medication adjustment. HPI General Mode of arrival: ambulatory . Date/Time Provider Initiated Documentation: 11/21/21 19:01 . Limitations to Documentation: no limitations . Information obtained by: patient . HPI Narrative: 36-year-old female with multiple medical problems including recent history of V. fib cardiac arrest secondary to coronary vasospasm treated at [facility], tobacco use, hypertension, recent COVID-19 infection diagnosed 09/27/2021, status post recent ICD placement, here tonight with chief complaint of chest discomfort. Patient notes she has been feeling generally tired and weak with heaviness in bilateral upper extremities that has been present since she was discharged from [facility]. She states that this seems worse over the past few days. She also notes chest discomfort described as heartburn that radiates into her shoulders and also nausea. She denies shortness of breath. No abdominal pain. Related Data Home Medications Medication Instructions Recorded Confirmed albuterol sulfate 90 mcg/actuation 2 puff IH Q4H PRN gm 05/09/20 11/21/21 aerosol inhaler cetirizine 10 mg tablet 10 mg PO DAILY 05/09/20 11/21/21 diazepam 5 mg tablet 5 mg PO TID PRN 05/09/20 11/21/21 fluticasone propionate 44 2 puff IH BID 05/09/20 11/21/21 mcg/actuation HFA aerosol inhaler fluticasone propionate 50 1 spray WILEY DAILY 05/09/20 11/21/21 mcg/actuation nasal spray,suspension ipratropium 0.5 mg-albuterol 3 mg 3 ml IH QID PRN 05/09/20 11/21/21 (2.5 mg base)/3 mL nebulization soln lidocaine HCl 2 % mucosal solution 1 applic MM .Q 3HR ml 05/09/20 11/21/21 lisinopril 10 mg tablet 10 mg PO DAILY 05/09/20 11/21/21 nebulizers #1 each 05/09/20 09/13/20 omeprazole magnesium 20 mg 20 mg PO DAILY 05/09/20 11/21/21 tablet,delayed release polyethylene glycol 3350 17 17 gm PO DAILY 05/09/20 11/21/21 gram/dose oral powder prazosin 1 mg capsule 1 mg PO TID cap 05/09/20 11/21/21 magnesium oxide 500 mg tablet 500 mg PO DAILY #90 tab 07/13/20 11/21/21 famotidine 40 mg tablet 40 mg PO DAILY 09/13/20 11/21/21 ondansetron HCl [Zofran] 4 mg PO Q6H PRN 09/18/20 11/21/21 Previous Rx's Medication Instructions Recorded magnesium oxide 500 mg tablet 500 mg PO DAILY #90 tab 07/13/20 Allergies Allergy/AdvReac Type Severity Reaction Status Date / Time amoxicillin [From Augmentin] Allergy Intermediate GI Verified 11/21/21 19:14 clavulanic acid Allergy Intermediate GI Verified 11/21/21 19:14 [From Augmentin] morphine Allergy Mild muscle pain Verified 11/21/21 19:14 quetiapine [From Seroquel] Allergy Mild nausea,anxi Verified 11/21/21 19:14 ety General Stated Complaint: Chest Pain STEPHANIE: 2 Review of Systems All systems reviewed & are unremarkable except as noted in HPI and below Constitutional Constitutional: Reports fatigue, Denies fever(s), Reports lethargy and Reports weakness Cardiovascular Cardiovascular: Reports as per HPI Neurologic Neurologic: Reports weakness Endocrine Endocrine: Reports fatigue PFSH All Active Problems (Updated 11/21/21 @ 21:45 by Tio Simms MD) Chest discomfort (Acute) Low blood pressure, not hypotension (Acute) Thickening of wall of gallbladder (Acute) Fatigue (Acute) Anemia (Chronic) Anxiety and depression (Chronic) Migraine headache without aura (Acute) Facial paresthesia (Acute) Medical History Allergic rhinitis Anorexia Anxiety disorder Asthma Flaherty's palsy Bipolar 1 disorder Cigarette nicotine dependence Constipation Essential hypertension GERD (gastroesophageal reflux disease) Low back pain Major depressive disorder Reactive airway disease Recurrent sinus infections Subacute vaginitis Substance abuse Surgical History History of dilation and curettage Family History Father , 42 YEARS ALCOHOLIC Alcohol abuse Heat exhaustion Pneumonia Maternal Uncle Pulmonary arterial hypertension Social History Smoking/Tobacco Use Status: Current every day Tobacco Type: cigarettes Smoking risk assessment performed?: Yes Alcohol Intake: never Drug use: Never Pets and animals: No What type of physical activity do you participate in: none Seatbelt use: always Do you feel safe at home: Yes Do you feel safe in your relationship?: Yes Exam Const General: cooperative and no acute distress HENMT Mouth: moist mucous membranes Eyes Conjunctivae: normal conjunctivae Sclera: normal sclerae Neck Neck: trachea midline Chest Other: ICD wounds left lateral chest and over sternum healing with no signs of infection Resp Auscultation: clear to auscultation bilaterally, no rales, no rhonchi and no wheezes Cardio Rate: regular rate and not tachycardic Rhythm: regular rhythm Heart Sounds: no murmurs GI Palpation: soft, not firm, no guarding, no masses, not rigid and nontender Skin General skin exam: no rashes or lesions noted Neuro General: patient alert, patient awake, patient oriented x3 and tone normal Extrem General: no calf tenderness and no edema Course Vital Signs Vital signs: Vital Signs Temperature 36.5 C 11/21/21 18:51 Pulse 75 11/21/21 18:51 Respiratory Rate 19 11/21/21 18:51 Blood Pressure 100/49 L 11/21/21 18:51 Pulse Oximetry 100 11/21/21 18:51 Temperature 36.5 C 11/21/21 18:51 Temperature Source Temporal Artery Scan 11/21/21 18:51 Pulse 63 11/21/21 21:01 Pulse 62 11/21/21 21:10 Respiratory Rate 14 11/21/21 21:10 Respiratory Effort Non-Labored 11/21/21 19:01 Respiratory Depth Normal 11/21/21 19:01 Respiratory Pattern Normal 11/21/21 19:01 Blood Pressure 100/58 L 11/21/21 21:01 Blood Pressure Mean 66 11/21/21 21:01 Blood Pressure Position Sitting 11/21/21 18:51 Pulse Oximetry 99 11/21/21 21:10 Oxygen Delivery Method Room Air 11/21/21 18:51 Oxygen Flow Rate 0 11/21/21 18:51 Pain Level 8 11/21/21 19:01 Lab/Test Results Lab/Test Results: Laboratory Tests Range/Units 11/21/21 11/21/21 18:58 18:58 WBC (4.4-10.8) 10^3/uL 10.70 RBC (3.93-5.22) 10^6/uL 3.94 Hgb (11.2-15.7) g/dL 10.2 L Hct (36.0-46.0) % 33.9 L MCV (80-95) fL 86.0 MCH (27.0-33.0) pg 25.9 L MCHC (32.0-36.0) % 30.1 L RDW (11.7-14.6) % 17.0 H Plt Count (130-400) 10^3/uL 454 H MPV (8.0-11.0) fL 11.5 H Immature Gran % 0.4 Neutrophils % 51.3 Lymphocytes % 34.1 Monocytes % 6.8 Eosinophils % 6.3 Basophils % 1.1 Nucleated RBC % % 0 Absolute Neutrophils (1.2-6.7) 10^3/uL 5.49 Absolute Lymphocytes (1.2-3.4) 10^3/uL 3.65 H Absolute Monocytes (0.1-0.8) 10^3/uL 0.73 Absolute Eosinophils (0.0-0.7) 10^3/uL 0.67 Absolute Basophils (0.0-0.2) 10^3/uL 0.12 Sodium (136-145) mmol/L 141 Potassium (3.5-5.1) mmol/L 4.1 Chloride (98-107) mmol/L 101 Carbon Dioxide (21.0-32.0) mmol/L 28.3 Anion Gap (3-11) mmol/L 11.7 H BUN (7-18) mg/dL 16 Creatinine (0.55-1.02) mg/dL 1.0 Estimated GFR/1.73 m2 (mL/min/1.73m2) >= 60.00 Glucose (74-106) mg/dL 98 Calcium (8.5-10.1) mg/dL 9.3 Total Bilirubin (0.2-1.0) mg/dL 0.3 AST (15-37) U/L 17 ALT (14-59) U/L 46 Alkaline Phosphatase (46-116) U/L 80 Troponin I (<or=60) ng/L < 50 Total Protein (6.4-8.2) g/dL 7.6 Albumin (3.4-5.0) g/dL 3.8 POC- Test(urine) Negative
[2021-11-21 21:36] LABS: Troponin I < 50 ng/L (<or=60)
== END 2021-11-21 22:00 | disposition home or self-care (01) ==
PROVIDERS: Emergency Provider Student in an Organized Health Care Education/Training Program; PCP Family Medicine
DX: R07.9 Chest pain, unspecified (principal); R03.1 Nonspecific low blood-pressure reading; K82.8 Other specified diseases of gallbladder; R53.83 Other fatigue; D64.9 Anemia, unspecified; Z95.810 Presence of automatic (implantable) cardiac defibrillator; I10 Essential (primary) hypertension
CPT/HCPCS: 36415; 71275; 74177; 80053; 81025; 93005; 99285; 84484; 85025; 93010; 99284

== ENCOUNTER 2022-04-10 17:13 | Observation (INO) | payer MEDICAID, SELFPAY ==
--- NOTE | 2022-04-10 17:15 | RT.EKG_ITS ---
APPROVED REPORT Exam: Resting ECG Reason for Exam: hx [place] / SOB Patient Location: E HR:84 bpm ECG Measurements Heart Rate 84 AXIS VT 123 P 45 QRSd 86 QRS 25 QT 376 T 22 QTc 446 Conclusion Sinus rhythm...normal P axis, V-rate 60- [address] depression, diffuse leads...ST <-0.07mV, ant/lat/inf sinus rhythm, normal axis, normal intervals ,non ischemci
[2022-04-10 17:18] VITALS: BP 136/61; PULSE 83; TEMP 36.8; O2SAT 100
--- NOTE | 2022-04-10 17:32 | ED.GENADUL_ITS ---
Discharge Plan Disposition Patient Disposition: [facility] INPATIENT Condition: Serious Discharge Details Clinical Impression: Abdominal pain, Admit Date/Time: 04/10/22 17:39 Admit Provider: Danielle Ricci Attending Provider: Danielle Ricci Primary Care Provider: Unknown,Unknown ED Provider: Roz Anderson Medical Decision Making Given patient's 22 weeks of and suspected uterine contractions, patient was sent to [facility] for monitoring to EKG was performed without acute abnormality and patient denies any chest pain or shortness of breath Dr. Ricci was consulted and has agreed to accept patient for monitoring to the center Patient transferred up in stable condition Medical Records Medical records reviewed: Yes I reviewed the patient's medical records. Lab Data Lab results reviewed: Yes I reviewed the patient's lab results. HPI General Date/Time Provider Initiated Documentation: 04/10/22 17:20 . HPI Narrative: This 36-year-old female with history of V. fib cardiac arrest with pacemaker, 4 para 3, asthma presents with report of contractions that she has had intermittently throughout the month, however as since 3:00 today she had contractions which lasted approximately a minute and occur every 10 minutes. She is 4 para 3. She denies any vaginal bleeding. She denies any trauma. She denies nausea. She has shortness of breath only when the contractions present. She denies any chest pain or palpitations. She denies any urinary complaints. She denies any fever or chills. She also an OB appointment yesterday at [facility] where she is followed as a high risk which was normal. Related Data Home Medications Medication Instructions Recorded Confirmed albuterol sulfate 90 mcg/actuation 2 puff inhalation Q4H PRN 05/09/20 04/10/22 aerosol inhaler (Proventil HFA) cetirizine 10 mg tablet 10 mg PO DAILY 05/09/20 04/10/22 fluticasone propionate 50 1 spray intranasal DAILY 05/09/20 04/10/22 mcg/actuation nasal spray,suspension (Flonase Allergy Relief) ipratropium 0.5 mg-albuterol 3 mg 3 ml inhalation QID PRN 05/09/20 04/10/22 (2.5 mg base)/3 mL nebulization soln lidocaine HCl 2 % mucosal solution 1 applic mucous membrane .Q 3HR PRN 05/09/20 04/10/22 (Lidocaine Viscous) nebulizers #1 ea 05/09/20 09/13/20 amlodipine 10 mg tablet 5 mg PO BID 04/10/22 04/10/22 clonazepam 1 mg tablet 1 mg PO TID PRN 04/10/22 04/10/22 nitroglycerin 0.4 mg sublingual 0.4 mg sublingual Q5-15M PRN 04/10/22 04/10/22 tablet Allergies Allergy/AdvReac Type Severity Reaction Status Date / Time amoxicillin [From Augmentin] Allergy Intermediate GI Verified 11/21/21 19:14 clavulanic acid Allergy Intermediate GI Verified 11/21/21 19:14 [From Augmentin] morphine Allergy Mild muscle pain Verified 11/21/21 19:14 quetiapine [From Seroquel] Allergy Mild nausea,anxi Verified 11/21/21 19:14 ety General Stated Complaint: [employer] STEPHANIE: 2 Review of Systems All systems reviewed & are unremarkable except as noted in HPI and below PFSH All Active Problems (Updated 04/10/22 @ 18:09 by EDEN Ohara) Abdominal pain (Acute) (Acute) Anxiety and depression (Chronic) Migraine headache without aura (Acute) Facial paresthesia (Acute) Medical History Allergic rhinitis Anorexia Anxiety disorder Asthma Flaherty's palsy Bipolar 1 disorder Cigarette nicotine dependence Constipation Essential hypertension GERD (gastroesophageal reflux disease) Low back pain Major depressive disorder Reactive airway disease Recurrent sinus infections Subacute vaginitis Substance abuse Surgical History History of dilation and curettage Family History Father , 42 YEARS ALCOHOLIC Alcohol abuse Heat exhaustion Pneumonia Maternal Uncle Pulmonary arterial hypertension Social History Smoking/Tobacco Use Status: Current every day Tobacco Type: cigarettes Smoking risk assessment performed?: Yes Alcohol Intake: never Drug use: Never Pets and animals: No What type of physical activity do you participate in: none Seatbelt use: always Do you feel safe at home: Yes Do you feel safe in your relationship?: Yes Exam Const General: cooperative and acute distress HENMT Other: moist mucous membranes Eyes Pupils: PERRL Resp Effort & Inspection: normal respiratory effort Auscultation: clear to auscultation bilaterally Cardio Rate: regular rate Rhythm: regular rhythm GI Other: Gravid uterus, no palpable tenderness, no CVA tenderness Skin General skin exam: no rashes or lesions noted Neuro General: patient alert and patient oriented x3 Extrem Other: Distal pulses intact, no edema Course Vital Signs Vital signs: Vital Signs Temperature 36.8 C 04/10/22 17:18 Pulse 83 04/10/22 17:18 Blood Pressure 136/61 04/10/22 17:18 Pulse Oximetry 100 04/10/22 17:18 Temperature 36.8 C 04/10/22 17:18 Temperature Source Temporal Artery Scan 04/10/22 17:18 Pulse 83 04/10/22 17:18 Blood Pressure 136/61 04/10/22 17:18 Blood Pressure Position Supine 04/10/22 17:18 Pulse Oximetry 100 04/10/22 17:18 Oxygen Delivery Method Room Air 04/10/22 17:18 Oxygen Flow Rate 0 04/10/22 17:18
[2022-04-10 17:42] VITALS: BP 125/74; PULSE 87; RESP 20; TEMP 36.4; O2SAT 98
[2022-04-10 18:35] VITALS: BP 119/73; PULSE 74; TEMP 36.9
[2022-04-10 19:04] VITALS: BP 119/73; PULSE 74; RESP 18; TEMP 36.6; O2SAT 97
[2022-04-10 19:21] LABS: HGB 10.1 g/dL (11.2-15.7); MCH 28.7 pg (27.0-33.0); MCHC 33.7 % (32.0-36.0); MCV 85 fL (80-95); MPV 12.3 fL (8.0-11.0); Platelet Count 289 10^3/uL (130-400); RBC 3.52 10^6/uL (3.93-5.22); RDW 17.3 % (11.7-14.6); RDW-SD 53.5 fL; WBC 14.75 10^3/uL (4.4-10.8)
[2022-04-10 19:29] LABS: ALT 17 U/L (14-59); AST 7 U/L (15-37); Albumin 2.7 g/dL (3.4-5.0); Alkaline Phosphatase 72 U/L (46-116); Anion Gap 9.8 mmol/L (3-11); BUN 8 mg/dL (7-18); Bilirubin, Total 0.1 mg/dL (0.2-1.0); CO2 25.2 mmol/L (21.0-32.0); CREATININE 0.9 mg/dL (0.55-1.02); Chloride 101 mmol/L (98-107); Glucose 102 mg/dL (74-106); Sodium 136 mmol/L (136-145); Total Protein 6.5 g/dL (6.4-8.2)
--- NOTE | 2022-04-10 19:31 | PDOC.NST_ITS ---
Date of service: 04/10/22 Time of Service: 19:31 NST Evaluation Reason for NST Reasons for Nonstress Test: OTHER, SEE COMMENT (maternal discomfort) Gestational Age Gestational Age in Weeks and Days: 21 Weeks and 6Days Test and Monitor Explained Test/Monitor Explained: Test Explained, Monitor Explained and Patient Verbalized Understanding NST Information Contraction Frequency: none Comments: external tocometer: no contractions on monitor NST Evaluation FHR Baseline: 150 Note NST Note Note: Pt is a 36yo female who is currently 21w6d EGA was brought to [facility] ED by her partner after she reported sharp abdominal pain this afternoon and intermittent discomfort that she described as contractions. She has hx of ventricular arrythmia and has implanted cardiac pacemaker. She was medically cleared in ED and had several hours of observation on BC before being discharged to home. Evaluation included FHR 140s. Abd exam: No focal tenderness. Pain to palpation in inguinal region bilaterally. No CVA tenderness. SVE: Cervix soft, closed, posterior, 0 effacement. Unable to palpate presenting part. DAMIEN not well developed. No CVA tenderness. Pt was given an abdominal binder. Abd pain worse when standing and pain in suprapubic region when walking forward. UE and LE normal in appearance. Labs: U/A with UCx. CBC, CMP ordered after having been obtained in ED. Pt left floor prior to discussion regarding Potassium 3.0. Hct 30% care at [facility] MFM department. Pt reports no PCP in the area. All of her visits are at [facility] related to cardiac issues. Pt is a tobacco user. Pt requested to be discharged to home. She was given discharge instructions regarding s/s of labor and encouraged to deep her MFM appt at [facility]. Addendum. I contacted pt and efaxed Rx for K-travis and vitamin to [facility] in [facility]. NST Reviewed and Verified by: Danielle Ricci
[2022-04-10 19:37] LABS: Bilirubin Negative (Negative); Blood Negative (Negative); Clarity Clear (Clear); Glucose Negative (Negative); Ketones Negative (Negative); Leukocyte Esterase Negative (Negative); Nitrite Negative (Negative); Urobilinogen 0.2 EU/dL (Up TO 0.2)
--- NOTE | 2022-04-25 17:04 | DSE_ITS ---
Discharge Plan Disposition Patient Disposition: HOME Condition: Stable Discharge Details Reason For Visit: CONT Admit Date/Time: 04/10/22 17:39 Admit Provider: Danielle Ricci Attending Provider: Danielle Ricci Primary Care Provider: Unknown,Unknown Hospital Course Hospital Course: Pt is a 36yo female who is currently 21w6d EGA was brought to [facility] ED by her partner after she reported sharp abdominal pain this afternoon and intermittent discomfort that she described as contractions. She has hx of ventricular arrythmia and has implanted cardiac pacemaker. She was medically cleared in ED and had several hours of observation on BC before being discharged to home. Evaluation included FHR 140s. Abd exam: No focal tenderness. Pain to palpation in inguinal region bilaterally. No CVA tenderness. SVE: Cervix soft, closed, posterior, 0 effacement. Unable to palpate presenting part. DAMIEN not well developed. No CVA tenderness. Pt was given an abdominal binder. Abd pain worse when standing and pain in suprapubic region when walking forward. UE and LE normal in appearance. Labs: U/A with UCx. CBC, CMP ordered after having been obtained in ED. Pt left floor prior to discussion regarding Potassium 3.0. Hct 30% care at [facility] [place]. Pt reports no PCP in the area. All of her visits are at [facility] related to cardiac issues. Pt is a tobacco user. Pt requested to be discharged to home. She was given discharge instructions regarding s/s of labor and encouraged to deep her MFM appt at [facility]. Addendum. I contacted pt and efaxed Rx for K-travis and vitamin to [facility] in [facility]. NST Reviewed and Verified by: Danielle Ricci Home Meds and New Rx's Prescriptions: No Action fluticasone propionate [Flonase Allergy Relief] 50 mcg/actuation spray,suspension 1 spray WILEY DAILY Rx Instructions: administer into each nostril ipratropium-albuterol 0.5 mg-3 mg(2.5 mg base)/3 mL solution for nebulization 3 ml IH QID PRN (DME) nebulizers Mis See Rx Instructions .ROUTE .MEDSUPPLY Qty: 1 Rx Instructions: As directed cetirizine 10 mg tablet 10 mg PO DAILY albuterol sulfate [Proventil HFA] 90 mcg/actuation HFA aerosol inhaler 2 puff IH Q4H PRN Lidocaine Viscous 2 % solution 1 applic MM .Q 3HR PRN potassium chloride [K-Tab] 20 mEq tablet extended release 20 meq PO BID 7 Days Qty: 14 4RF C-Zacarias DHA 28 mg iron-1 mg -200 mg capsule 1 cap PO DAILY Qty: 90 3RF Effer-K 10 mEq tablet, effervescent 10 meq PO BID Qty: 10 5RF clonazepam 1 mg Tablet 1 mg PO TID PRN amlodipine 10 mg Tablet 5 mg PO BID nitroglycerin 0.4 mg Tablet, Sublingual 0.4 mg SUBLINGUAL Q5-15M PRN Rx Instructions: do not exceed 3 doses per episode Discharge Instructions Activity:: Activity as Tolerated Equipment/Supplies:: No Equipment Needed Diet:: As Tolerated Discharge Orders Discharge Orders: Discharge Order (Routine); Ordered 04/25/22 Ordered By: Danielle Ricci Discharge Data Discharge Date/Time-TO BE ENTERED AT DEPARTURE: 04/10/22 19:30 DS: Summary Time Spent with Patient providing and/or coordinating discharge services: Less than 30 minutes Status at Discharge Functional status at discharge: independent ambulation Overall status at discharge: patient is back to baseline Mental Status: mental status grossly normal Speech and Movement: speech and movement normal Mood: dysthymic mood Affect: dysphoric affect Exam Narrative Exam Narrative: See the above note for physical exam. Psych Mental Status: mental status grossly normal Speech and Movement: speech and movement normal Mood: dysthymic mood Affect: dysphoric affect DS: Data Vitals/I&O Vitals and I&O: Vital Signs Temperature 97.9 F 04/10/22 19:04 Temperature Source Temporal Artery Scan 04/10/22 17:42 Pulse 74 04/10/22 19:04 Pulse Rhythm Regular 04/10/22 19:04 Respiratory Rate 18 04/10/22 19:04 Respiratory Effort 04/10/22 17:31 Blood Pressure 119/73 04/10/22 19:04 Blood Pressure Mean 88 04/10/22 18:35 Blood Pressure Position Supine 04/10/22 17:18 Pulse Oximetry 97 04/10/22 19:04 Oxygen Delivery Method Room Air 04/10/22 19:04 Oxygen Flow Rate 0 04/10/22 19:04 Pain Level 6 04/10/22 19:04 PFSH All Active Problems (Updated 04/11/22 @ 08:33 by Danielle Ricci MD) Anemia affecting (Acute) Hypokalemia (Acute) Tobacco use (Acute) Hx of cardiac arrest (Acute) 11/04/21. VF cardiac arrest. SQ cardiac pacemaker in place. Abdominal pain (Acute) (Acute) Anxiety and depression (Chronic) Migraine headache without aura (Acute) Facial paresthesia (Acute) Medical History Allergic rhinitis Anorexia Anxiety disorder Asthma Flaherty's palsy Bipolar 1 disorder Cigarette nicotine dependence Constipation Essential hypertension GERD (gastroesophageal reflux disease) Low back pain Major depressive disorder Reactive airway disease Recurrent sinus infections Subacute vaginitis Substance abuse Surgical History History of dilation and curettage Family History Father , 42 YEARS ALCOHOLIC Alcohol abuse Heat exhaustion Pneumonia Maternal Uncle Pulmonary arterial hypertension Social History Smoking/Tobacco Use Status: Current every day Tobacco Type: cigarettes Smoking risk assessment performed?: Yes Alcohol Intake: never Drug use: Never Pets and animals: No What type of physical activity do you participate in: none Seatbelt use: always Do you feel safe at home: Yes Do you feel safe in your relationship?: Yes
== END 2022-04-10 19:30 | disposition home or self-care (01) ==
LOC: ER 17:44 → OBS 17:47
PROVIDERS: Admitting Provider Obstetrics & Gynecology Gynecology; Emergency Provider Physician Assistant; Visit Provider Obstetrics & Gynecology Gynecology
DX: O47.02 False labor before 37 completed weeks of gestation, second trimester (principal); Z3A.21 21 weeks gestation of pregnancy; O99.352 Diseases of the nervous system complicating pregnancy, second trimester; O99.412 Diseases of the circulatory system complicating pregnancy, second trimester; O99.322 Drug use complicating pregnancy, second trimester; O99.342 Other mental disorders complicating pregnancy, second trimester; O99.512 Diseases of the respiratory system complicating pregnancy, second trimester; O99.612 Diseases of the digestive system complicating pregnancy, second trimester; Z79.899 Other long term (current) drug therapy; Z95.0 Presence of cardiac pacemaker; J45.909 Unspecified asthma, uncomplicated; G43.009 Migraine without aura, not intractable, without status migrainosus; F31.9 Bipolar disorder, unspecified; K21.9 Gastro-esophageal reflux disease without esophagitis; F17.210 Nicotine dependence, cigarettes, uncomplicated; K59.00 Constipation, unspecified; F41.9 Anxiety disorder, unspecified
CPT/HCPCS: 36415; 80053; 85027; 87635; 93005; 99285; 59025; 81003; 87086; 93010; G0378

== ENCOUNTER 2022-05-13 17:52 | Outpatient (CLI) | payer MEDICAID, SELFPAY ==
[2022-05-13 19:07] VITALS: BP 115/65; PULSE 81
[2022-05-13 19:26] LABS: HCT 28.6 % (36.0-46.0); HGB 9.8 g/dL (11.2-15.7); MCH 29.3 pg (27.0-33.0); MCHC 34.3 % (32.0-36.0); MCV 86 fL (80-95); MPV 11.2 fL (8.0-11.0); Platelet Count 273 10^3/uL (130-400); RBC 3.34 10^6/uL (3.93-5.22); RDW 17.2 % (11.7-14.6); RDW-SD 54.2 fL; WBC 17.32 10^3/uL (4.4-10.8)
[2022-05-13 19:31] VITALS: BP 115/65; PULSE 81; RESP 18; TEMP 36.8
[2022-05-13 19:41] LABS: ALT 20 U/L (14-59); AST 12 U/L (15-37); Albumin 2.7 g/dL (3.4-5.0); Alkaline Phosphatase 75 U/L (46-116); Anion Gap 10.3 mmol/L (3-11); BUN 14 mg/dL (7-18); Bilirubin, Total 0.1 mg/dL (0.2-1.0); CO2 24.7 mmol/L (21.0-32.0); CREATININE 0.8 mg/dL (0.55-1.02); Calcium 9.5 mg/dL (8.5-10.1); Chloride 103 mmol/L (98-107); Glucose 106 mg/dL (74-106); Potassium 3.5 mmol/L (3.5-5.1); Sodium 138 mmol/L (136-145); Total Protein 6.4 g/dL (6.4-8.2)
[2022-05-13] MEDS: Lidocaine 5% Patch 1 PATCH TP (20:10)
--- NOTE | 2022-05-13 20:11 | PGE_ITS ---
Date of Service Date of service: 05/13/22 Time of Service: 20:11 Assessment and Plan Assessment and plan (1) Generalized muscular abdominal pain: Status: Acute Assessment and plan: I advised patient to use lidocaine patch. 1 has been provided for her prior to discharge and she has prescription called into her pharmacy. (2) Anemia affecting : Status: Acute Assessment and plan: Prescription for liquid iron has been called and patient will take it on a daily basis. (3) Abdominal pain: Status: Acute Assessment and plan: No evidence of labor. (4) : Status: Acute Assessment and plan: She will continue with care at [facility] and intermittent visits at [facility]. Subjective Subjective Interval history since last seen: Periumbilical abdominal pain worsening over the course of the day. Patient was concerned that she was experiencing contractions and requested an evaluation on the center. Currently 30 6W4D EGA Exam Narrative Exam Narrative: Patient presented to the center via the [facility] emergency department on 04/10/2022 and was evaluated for possible labor and diagnosed with hypokalemia.. Since that time she has been conscientious about increasing her dietary intake of potassium rich fruits and vegetables. She reports experiencing panic attacks when she has the periumbilical cramping if she worries that she is in labor. Const General: disheveled and ill appearing Nutritional Appearance: average body habitus Orientation: alert, awake and oriented x3 Resp Effort & Inspection: normal respiratory effort Cardio Rate: regular rate Rhythm: regular rhythm GI Inspection: other (Gravid, no focal tenderness, no umbilical hernia) Palpation: soft and no hernias Other: No uterine contractions on external tocometer. Abdomen image: 1. Area of pain that patient worsening after vaginal exams or with Doddridge Alvarez contractions OB/External & Speculum: external exam normal Manual OB Exam: dilated Negative for fingertip, effaced 0%, station high and other (Cervix midposition, firm no blood in the vaginal vault) Skin General skin exam: no rashes or lesions noted Extrem General: normal to inspection and full ROM Psych Appearance: disheveled Mental Status: mental status grossly normal Speech and Movement: slowed movement Mood: anxious mood and dysthymic mood Affect: anxious affect and dysphoric affect Attitude: cooperative Thought Process: normal Thought Content: normal Insight: insight good Judgment: judgment good Objective Last Vital Signs Temp 98.3 F 07/25/22 19:31 Pulse 81 05/13/22 19:31 Resp 18 05/13/22 19:31 BP 115/65 05/13/22 19:31 Laboratory Results - last 24 hr 05/13/22 05/13/22 19:12 19:12 WBC 17.32 H RBC 3.34 L Hgb 9.8 L Hct 28.6 L MCV 86 MCH 29.3 MCHC 34.3 RDW 17.2 H Plt Count 273 MPV 11.2 H Sodium 138 Potassium 3.5 Chloride 103 Carbon Dioxide 24.7 Anion Gap 10.3 BUN 14 Creatinine 0.8 Estimated GFR/1.73 m2 >= 60.00 Glucose 106 Calcium 9.5 Total Bilirubin 0.1 L AST 12 L ALT 20 Alkaline Phosphatase 75 Total Protein 6.4 Albumin 2.7 L
--- NOTE | 2022-05-13 20:29 | W.PM.DS.N ---
Date of service: 05/13/22 Time of Service: 20:30 DS: Diagnosis Discharge Diagnosis (1) Generalized muscular abdominal pain: Status: Acute (2) Anemia affecting : Status: Acute (3) Abdominal pain: Status: Acute (4) : Status: Acute Discharge Plan Disposition Patient Disposition: HOME Condition: Fair Discharge Details Reason For Visit: NST Attending Provider: Gloria Sterling Primary Care Provider: Unknown,Unknown Hospital Course Hospital Course: Patient was observed on the center after she called to report uterine pain. heart rate was auscultated. There is no evidence of uterine contractions by external tocometer. Vaginal exam was unchanged from previous visit approximately a month ago. Laboratory studies showed anemia and resolution of her hypokalemia. Patient was treated with a 5% lidocaine patch. She was instructed to apply moist heat to her abdomen as needed. Patient [place] [facility] [place] Home Meds and New Rx's Prescriptions: No Action PNV #[id number] acid-dha 35 mg iron-5 mg iron-1 mg capsule 1 cap PO DAILY 360 Days Qty: 90 3RF fluticasone propionate [Flonase Allergy Relief] 50 mcg/actuation spray,suspension 1 spray WILEY DAILY Rx Instructions: administer into each nostril ipratropium-albuterol 0.5 mg-3 mg(2.5 mg base)/3 mL solution for nebulization 3 ml IH QID PRN (DME) nebulizers [facility] See Rx Instructions .ROUTE .MEDSUPPLY Qty: 1 Rx Instructions: As directed cetirizine 10 mg tablet 10 mg PO DAILY albuterol sulfate [Proventil HFA] 90 mcg/actuation HFA aerosol inhaler 2 puff IH Q4H PRN Lidocaine Viscous 2 % solution 1 applic MM .Q 3HR PRN potassium chloride [K-Tab] 20 mEq tablet extended release 20 meq PO BID 7 Days Qty: 14 4RF C-Zacarias DHA 28 mg iron-1 mg -200 mg capsule 1 cap PO DAILY Qty: 90 3RF Effer-K 10 mEq tablet, effervescent 10 meq PO BID Qty: 10 5RF lidocaine 5 % adhesive patch,medicated 1 patch topical DAILY Qty: 15 3RF Rx Instructions: leave on most painful area for up to 12 hrs ferrous sulfate 300 mg (60 mg iron)/5 mL liquid 300 mg PO DAILY Qty: 120 4RF clonazepam 1 mg Tablet 1 mg PO TID PRN amlodipine 10 mg Tablet 5 mg PO BID nitroglycerin 0.4 mg Tablet, Sublingual 0.4 mg SUBLINGUAL Q5-15M PRN Rx Instructions: do not exceed 3 doses per episode Discharge Instructions Additional Instructions: Keep [place] [facility] [place]. Apply moist heat to your abdomen as needed and use the lidocaine patch for approximately 12 hours a day. Begin liquid iron supplements on a daily basis. Activity:: Activity as Tolerated Activity:: Activity as Tolerated Equipment/Supplies:: No Equipment Needed Diet:: As Tolerated DS: Summary Time Spent with Patient providing and/or coordinating discharge services: Less than 30 minutes Status at Discharge Functional status at discharge: independent ambulation Overall status at discharge: patient is back to baseline Mental Status: mental status grossly normal Speech and Movement: slowed movement Mood: anxious mood and dysthymic mood Affect: dysphoric affect Exam Const General: anxious and disheveled Nutritional Appearance: average body habitus Orientation: alert, awake and oriented x3 GI Inspection: other (Abdomen remains gravid periumbilical discomfort present) Palpation: no hepatosplenomegaly and other (Gravid) General: other (Cervical exam unchanged from patient's visit last month) Skin General skin exam: other (Multiple tattoos) Extrem General: normal to inspection and full ROM Psych Appearance: disheveled Mental Status: mental status grossly normal Speech and Movement: slowed movement Mood: anxious mood and dysthymic mood Affect: dysphoric affect DS: Data Vitals/I&O Vitals and I&O: Vital Signs Temperature 98.3 F 05/13/22 19:31 Pulse 81 05/13/22 19:31 Respiratory Rate 18 05/13/22 19:31 Blood Pressure 115/65 05/13/22 19:31 Oxygen Delivery Method Room Air 05/13/22 19:31 Oxygen Flow Rate 0 05/13/22 19:31 Intake & Output 05/12/22 05/13/22 05/13/22 23:59 11:59 23:59 Weight 168 lb Data Completed and Pending Labs on day of discharge: Labs from last 24 hours 05/13/22 05/13/22 19:12 19:12 WBC 17.32 H RBC 3.34 L Hgb 9.8 L Hct 28.6 L MCV 86 MCH 29.3 MCHC 34.3 RDW 17.2 H Plt Count 273 MPV 11.2 H Sodium 138 Potassium 3.5 Chloride 103 Carbon Dioxide 24.7 Anion Gap 10.3 BUN 14 Creatinine 0.8 Estimated GFR/1.73 m2 >= 60.00 Glucose 106 Calcium 9.5 Total Bilirubin 0.1 L AST 12 L ALT 20 Alkaline Phosphatase 75 Total Protein 6.4 Albumin 2.7 L PFSH All Active Problems (Updated 05/13/22 @ 20:09 by Danielle Ricci MD) Anemia (Chronic) Generalized muscular abdominal pain (Acute) Anemia affecting (Acute) Tobacco use (Acute) Hx of cardiac arrest (Acute) 11/04/21. VF cardiac arrest. SQ cardiac pacemaker in place. Abdominal pain (Acute) (Acute) Anxiety and depression (Chronic) Migraine headache without aura (Acute) Facial paresthesia (Acute) Medical History (Updated 05/13/22 @ 20:09 by Danielle Ricci MD) Allergic rhinitis Anorexia Anxiety disorder Asthma Flaherty's palsy Bipolar 1 disorder Cigarette nicotine dependence Constipation Essential hypertension GERD (gastroesophageal reflux disease) Hypokalemia Low back pain Major depressive disorder Reactive airway disease Recurrent sinus infections Subacute vaginitis Substance abuse Surgical History History of dilation and curettage Family History Father , 42 YEARS ALCOHOLIC Alcohol abuse Heat exhaustion Pneumonia Maternal Uncle Pulmonary arterial hypertension Social History Smoking/Tobacco Use Status: Current every day Tobacco Type: cigarettes Smoking risk assessment performed?: Yes Alcohol Intake: never Drug use: Never Pets and animals: No What type of physical activity do you participate in: none Seatbelt use: always Do you feel safe at home: Yes Do you feel safe in your relationship?: Yes History History 5 Para 3 Hx # Term Pregnancies Multiple births Hx # Pregnancies Ectopic pregnancies AB induced Hx Number of Living Children AB spontaneous
== END 2022-05-13 20:30 | disposition home or self-care (01) ==
LOC: BCD 17:53 → OBS 18:45
PROVIDERS: Visit Provider Obstetrics & Gynecology Gynecology
DX: O60.03 Preterm labor without delivery, third trimester (principal); Z3A.30 30 weeks gestation of pregnancy
CPT/HCPCS: 36415; 80053; 85027; 59025

== ENCOUNTER 2022-06-09 20:18 | Emergency (ER) | payer MEDICAID, SELFPAY ==
--- NOTE | 2022-06-09 20:15 | RT.EKG_ITS ---
APPROVED REPORT Exam: Resting ECG Reason for Exam: chest pain Patient Location: E HR:88 bpm ECG Measurements Heart Rate 88 AXIS PA 124 P 23 QRSd 79 QRS 23 QT 352 T 24 QTc 427 Conclusion Sinus rhythm...normal P axis, V-rate 60- 99 Physician: inverted t wave in V1, q wave in III, no stemi
[2022-06-09 20:33] VITALS: BP 121/66; PULSE 63; RESP 18; TEMP 36.8; O2SAT 98
[2022-06-09 21:13] LABS: Abs Immature Grans 0.58 10^3/uL (0.0-0.06); HGB 9.6 g/dL (11.2-15.7); MCH 28.8 pg (27.0-33.0); MCHC 33.1 % (32.0-36.0); MCV 87 fL (80-95); MPV 11.3 fL (8.0-11.0); Platelet Count 311 10^3/uL (130-400); RBC 3.33 10^6/uL (3.93-5.22); RDW-SD 50.8 fL
[2022-06-09 21:38] LABS: Absolute Lymphocyte Count 2.89 10^3/uL (1.2-3.4); Absolute Monocyte Count 2.44 10^3/uL (0.1-0.8); Absolute Neutrophil Count 16.65 10^3/uL (1.2-6.7); Bands % 1
[2022-06-09 21:39] LABS: Diff Comment Manual Differential; Metamyelocytes % 1; RBC Morphology Normal
[2022-06-09 21:40] LABS: ALT 23 U/L (14-59); AST 12 U/L (15-37); Albumin 2.8 g/dL (3.4-5.0); Alkaline Phosphatase 88 U/L (46-116); Anion Gap 10.2 mmol/L (3-11); BUN 11 mg/dL (7-18); Bilirubin, Total 0.1 mg/dL (0.2-1.0); CO2 24.8 mmol/L (21.0-32.0); CREATININE 0.9 mg/dL (0.55-1.02); Calcium 9.4 mg/dL (8.5-10.1); Chloride 101 mmol/L (98-107); Glucose 85 mg/dL (74-106); NT-proBNP 81 pg/mL (<300); Potassium 3.9 mmol/L (3.5-5.1); Sodium 136 mmol/L (136-145); Total Protein 6.9 g/dL (6.4-8.2); Troponin I < 50 ng/L (<or=60)
[2022-06-09 22:37] LABS: Bilirubin Negative (Negative); Blood Negative (Negative); Clarity Clear (Clear); Glucose Negative (Negative); Ketones Negative (Negative); Leukocyte Esterase Negative (Negative); Nitrite Negative (Negative); Specific Gravity 1.015 (1.005-1.025); Urobilinogen 0.2 EU/dL (Up TO 0.2)
[2022-06-09] MEDS: AZITHROMYCIN 500 MG in Normal Saline 250 ML 250 MG IVPB (22:58)
--- NOTE | 2022-06-09 23:27 | NUR.NOTE ---
Pt rec'd thru ER for a pleural effusion/pneumonia and presents for an NST per Dr Garber request. Pt placed on EFM and numerous attempts to obtain a consisten FHR -. This pt is a 30+6 wks, with tenderness in the inguinal area and the left upper abd quadrant. Tender to palpation. Denies vaginal bleeding or spotting. Cardiac- regular at 85 HX of heart attack 11/10 +defrbrillator Resp 17 with O2 sat. Pt xray showed a pleural effusion and pt has a dry cough. Admits to being a P[employer] smoker, EENT-+for sore throat, GI-occ nausea last BM 06/09/22, denies diarrhea, but states her stool was very soft Musc-WNL, Neur-I feel like pins and needles sensation all over my body, FHR 130 and active fetus 30+6 wk fetus edc 08/15/22 per pt and is seen at [facility]. (Had Covid 10/09) Nursing Note:
[2022-06-09 23:48] VITALS: BP 106/67; PULSE 83; RESP 17; TEMP 36.6; O2SAT 98
--- NOTE | 2022-06-10 00:08 | NUR.NOTE ---
notified that technical publications writer unable to obtaine efm. Active fetus and dopplers have been used. Noted that pt may bed discharged to home after bolus of LR 500ml and antibiotic completed..Nursing Note:
[2022-06-10] MEDS: Lactated Ringers 500 ML 1000 ML IV (00:18)
[2022-06-10] MEDS: Normal Saline Flush 10 ML SYR (00:48)
[2022-06-10 01:04] LABS: Troponin I < 50 ng/L (<or=60)
[2022-06-10 01:08] VITALS: BP 115/73; PULSE 84; RESP 16; O2SAT 97
--- NOTE | 2022-06-10 01:08 | ED.GENADUL_ITS ---
Discharge Plan Disposition Patient Disposition: HOME Condition: Good Discharge Details Clinical Impression: Pelvic cramping, Cough, Bronchitis Primary Care Provider: None,None ED Provider: Dominick Nice Home Meds and New Rx's Prescriptions: New azithromycin 250 mg tablet 250 mg PO DAILY 4 Days Qty: 4 0RF Discontinued azithromycin [Zithromax] 500 mg tablet 500 mg PO DAILY 3 Days Qty: 3 0RF No Action PNV #[id number]-dha 35 mg iron-5 mg iron-1 mg capsule 1 cap PO DAILY 360 Days Qty: 90 3RF fluticasone propionate [Flonase Allergy Relief] 50 mcg/actuation spray,suspension 1 spray WILEY DAILY Rx Instructions: administer into each nostril ipratropium-albuterol 0.5 mg-3 mg(2.5 mg base)/3 mL solution for nebulization 3 ml IH QID PRN (DME) nebulizers Misc See Rx Instructions .ROUTE .MEDSUPPLY Qty: 1 Rx Instructions: As directed cetirizine 10 mg tablet 10 mg PO DAILY albuterol sulfate [Proventil HFA] 90 mcg/actuation HFA aerosol inhaler 2 puff IH Q4H PRN Lidocaine Viscous 2 % solution 1 applic MM .Q 3HR PRN potassium chloride [K-Tab] 20 mEq tablet extended release 20 meq PO BID 7 Days Qty: 14 4RF C-Zacarias DHA 28 mg iron-1 mg -200 mg capsule 1 cap PO DAILY Qty: 90 3RF Effer-K 10 mEq tablet, effervescent 10 meq PO BID Qty: 10 5RF lidocaine 5 % adhesive patch,medicated 1 patch topical DAILY Qty: 15 3RF Rx Instructions: leave on most painful area for up to 12 hrs ferrous sulfate 300 mg (60 mg iron)/5 mL liquid 300 mg PO DAILY Qty: 120 4RF clonazepam 1 mg Tablet 1 mg PO TID PRN amlodipine 10 mg Tablet 5 mg PO BID nitroglycerin 0.4 mg Tablet, Sublingual 0.4 mg SUBLINGUAL Q5-15M PRN Rx Instructions: do not exceed 3 doses per episode Discharge Instructions Instructions: Acute Bronchitis (ED) Additional Instructions: At this time your symptoms are suspicious for mild bronchitis. Please take the antibiotic azithromycin as directed. Please drink plenty fluids and stay well- hydrated. Please follow-up closely with your OB provider. If you notice any worsening of your symptoms, or any new symptoms such as vomiting, diarrhea, fever, chills, shortness of breath, chest pain, numbness, weakness, or fainting , please return immediately to the emergency department for reevaluation. Please follow up with your primary care provider as soon as possible for reassessment and reevaluation. As always, it was a pleasure participating in your medical care today. Referrals: Danielle Ricci MD [ [facility] STAFF PHYSICIAN] - Medical Decision Making This is a G5, P3 female with a past medical history significant for V. tach cardiac arrest in October 2021 which was deemed to be secondary to severe coronary artery spasms as confirmed on cardiac catheterization, and not secondary to cardiomyopathy, coronary artery disease, or QT prolongation. Implantable defibrillator device. She is currently 30 weeks , and also has a history of persistent chest pain after the initial cardiac event for which she takes regular nitroglycerin, calcium channel blockers, and is currently being followed by OB. Patient also admits to a chronic cough, particularly worsening over the last 3 weeks, and notably more over the last few days. She denies fever or chills. She does admit to occasional productive sputum. The symptoms are slightly concerning for her, and in addition to that she had pelvic cramping. OB recommended she come in for cardiac evaluation, infectious etiology evaluation, and obstetrics monitoring. She does admit to some mild chest pain in the left anterior chest which she states is similar to her regular chest pain. It is worse with palpation of that area. It is worse with coughing. It is otherwise improved by nothing. She denies any vaginal discharge or bleeding. She states she has been taking her medications as directed. Patient does use tobacco. No other complaints at this time. No other modifying factors. Exam demonstrates reproducible tenderness over the left anterior chest wall over the fourth or fifth rib. This the patient states is identical to the pain that she was feeling before. Defibrillator is unremarkable on exam. Mucous membranes are slightly dry. Abdomen is appropriately gravid, relatively nontender, no signs of significant abdominal tenderness on exam. Limited bedside ultrasound of the heart demonstrates no pericardial effusion, normal cardiac contractility. Limited bedside ultrasound of the lungs demonstrate a few small B-lines in the left lung field, no large consolidation though. Limited bedside ultrasound of the fetus demonstrates a heart rate that ranges in the 120s to 140s and appears to be slightly variable. Vital signs are otherwise stable. Laboratory work-up and screening exams were performed here, patient does have an elevated white count of 22 which is higher than normal for her. That being said she does usually run a bit on the higher side with her white count normal at 17. There is a single band though which is atypical and unexpected. Blood cultures were ordered. Patient denies any drug use. She does smoke tobacco. No murmur on auscultation. Electrolytes normal. Initial and delta troponin were normal. proBNP is normal suggesting no evidence of significant cardiac strain. Urinalysis is negative for any evidence of infection. With the patient's persistent cough that is notably been worsening as well as the small scattered B-lines noted on the left in the mid lung field I do worry that perhaps the patient is suffering from mild pneumonia. She has b een on azithromycin in the past without complication. She does have an intolerance to penicillin-based medications. 500 mg of IV azithromycin was given here. EKG shows stable intervals, and no evidence of STEMI or ACS. Will give azithromycin prescription for home use. Patient was then sent to OB and monitored for a prolonged episode there and there were no significant abnormalities noted on monitoring. This time the patient's vital signs remained notably stable, she has stable and appropriate for discharge. Prescription for azithromycin Valorie has been sent to her pharmacy. Otherwise clinically she appears well. She does not show any evidence of respiratory distress, clinical endometritis, and the pacemaker site shows no evidence of infection clinically. I did discuss with the patient that if her symptoms persist or worsen she may need further medical evaluation and reassessment. We are still pending blood culture results which will take few days to return. Patient is otherwise stable for continued home management with antibiotic therapy. Symptoms appear inconsistent with endocarditis at this time. Additionally I did review the chest x-ray image from department that was done in October, and the pacemaker leads do not track to the area of reproducible tenderness on her anterior chest wall that is currently present today. Symptoms inconsistent with lead placement infection clinically at this time. Patient will be discharged with close follow-up. Discussed red flags which return. I have extensively reviewed the treatment plan and discharge instructions with the patient and their family. I have addressed all patient concerns at this time. The patient and family was made aware of what symptoms to monitor for that would warrant a return to the emergency department. Discussed the plan with the patient and family, they demonstrate verbal understanding and agreement with our assessment and plan at this time. The documentation in this chart was dictated using [employer] dictation software. Please excuse any dictation errors. HPI General Date/Time Provider Initiated Documentation: 06/09/22 20:21 . HPI Narrative: This is a G5, P3 female with a past medical history significant for V. tach cardiac arrest in October 2021 which was deemed to be secondary to severe coronary artery spasms as confirmed on cardiac catheterization, and not secondary to cardiomyopathy, coronary artery disease, or QT prolongation. Implantable defibrillator device. She is currently 30 weeks , and also has a history of persistent chest pain after the initial cardiac event for which she takes regular nitroglycerin, calcium channel blockers, and is currently being followed by OB. Patient also admits to a chronic cough, particularly worsening over the last 3 weeks, and notably more over the last few days. She denies fever or chills. She does admit to occasional productive sputum. The symptoms are slightly concerning for her, and in addition to that she had pelvic cramping. OB recommended she come in for cardiac evaluation, infectious etiology evaluation, and obstetrics monitoring. She does admit to some mild chest pain in the left anterior chest which she states is similar to her regular chest pain. It is worse with palpation of that area. It is worse with coughing. It is otherwise improved by nothing. She denies any vaginal discharge or bleeding. She states she has been taking her medications as directed. Patient does use tobacco. No other complaints at this time. No other modifying factors. Related Data Home Medications Medication Instructions Recorded Confirmed albuterol sulfate 90 mcg/actuation 2 puff inhalation Q4H PRN 05/09/20 06/09/22 aerosol inhaler (Proventil HFA) cetirizine 10 mg tablet 10 mg PO DAILY 05/09/20 06/09/22 fluticasone propionate 50 1 spray intranasal DAILY 05/09/20 06/09/22 mcg/actuation nasal spray,suspension (Flonase Allergy Relief) ipratropium 0.5 mg-albuterol 3 mg 3 ml inhalation QID PRN 05/09/20 06/09/22 (2.5 mg base)/3 mL nebulization soln lidocaine HCl 2 % mucosal solution 1 applic mucous membrane .Q 3HR PRN 05/09/20 05/03/22 (Lidocaine Viscous) nebulizers #1 ea 05/09/20 05/03/22 amlodipine 10 mg tablet 5 mg PO BID 04/10/22 06/09/22 clonazepam 1 mg tablet 1 mg PO TID PRN 04/10/22 06/09/22 nitroglycerin 0.4 mg sublingual 0.4 mg sublingual Q5-15M PRN 04/10/22 06/09/22 tablet potassium bicarbonate-citric acid 10 meq PO BID #10 tabs 04/11/22 05/03/22 10 mEq effervescent tablet (Effer-K) potassium chloride 20 mEq 20 meq PO BID 1 week #14 tabs 04/11/22 05/03/22 tablet,extended release (K-Tab) [id number] fum 28 mg 1 cap PO DAILY #90 caps 04/11/22 05/03/22 iron-folic acid 1 mg-omg3 200 mg capsule (C-Zacarias DHA) vitamin #56-iron 35 mg 1 cap PO DAILY 12 months #90 caps 05/03/22 05/03/22 and 5 mg-folic acid 1 mg-dha capsule lidocaine 5 % topical patch 1 patch topical DAILY #15 ea 05/12/22 06/09/22 ferrous sulfate 300 mg (60 mg 300 mg (5 mL) PO DAILY #120 mL 05/13/22 06/09/22 iron)/5 mL oral liquid azithromycin 250 mg tablet 250 mg PO DAILY 4 days #4 tabs 06/10/22 Previous Rx's Medication Instructions Recorded potassium bicarbonate-citric acid 10 meq PO BID #10 tabs 04/11/22 10 mEq effervescent tablet (Effer-K) potassium chloride 20 mEq 20 meq PO BID 1 week #14 tabs 04/11/22 tablet,extended release (K-Tab) [id number] fum 28 mg 1 cap PO DAILY #90 caps 04/11/22 iron-folic acid 1 mg-omg3 200 mg capsule (C-Zacarias DHA) vitamin #56-iron 35 mg 1 cap PO DAILY 12 months #90 caps 05/03/22 and 5 mg-folic acid 1 mg-dha capsule lidocaine 5 % topical patch 1 patch topical DAILY #15 ea 05/12/22 ferrous sulfate 300 mg (60 mg 300 mg (5 mL) PO DAILY #120 mL 05/13/22 iron)/5 mL oral liquid azithromycin 250 mg tablet 250 mg PO DAILY 4 days #4 tabs 06/10/22 Allergies Allergy/AdvReac Type Severity Reaction Status Date / Time amoxicillin [From Augmentin] Allergy Intermediate GI Verified 06/09/22 20:38 clavulanic acid Allergy Intermediate GI Verified 06/09/22 20:38 [From Augmentin] morphine Allergy Mild muscle pain Verified 06/09/22 20:38 quetiapine [From Seroquel] Allergy Mild nausea,anxi Verified 06/09/22 20:38 ety General Stated Complaint: [employer] STEPHANIE: 3 Review of Systems All systems reviewed & are unremarkable except as noted in HPI and below PFSH All Active Problems Pelvic cramping (Acute) Cough (Acute) Bronchitis (Acute) Respiratory infection (Acute) Anemia (Chronic) Generalized muscular abdominal pain (Acute) Anemia affecting (Acute) Tobacco use (Acute) Hx of cardiac arrest (Acute) 11/04/21. VF cardiac arrest. SQ cardiac pacemaker in place. Abdominal pain (Acute) (Acute) Anxiety and depression (Chronic) Migraine headache without aura (Acute) Facial paresthesia (Acute) Medical History Allergic rhinitis Anorexia Anxiety disorder Asthma Flaherty's palsy Bipolar 1 disorder Cigarette nicotine dependence Constipation Essential hypertension GERD (gastroesophageal reflux disease) Hypokalemia Low back pain Major depressive disorder Reactive airway disease Recurrent sinus infections Subacute vaginitis Substance abuse Surgical History History of dilation and curettage Family History Father , 42 YEARS ALCOHOLIC Alcohol abuse Heat exhaustion Pneumonia Maternal Uncle Pulmonary arterial hypertension Social History Smoking/Tobacco Use Status: Current every day Tobacco Type: cigarettes Smoking risk assessment performed?: Yes Alcohol Intake: never Drug use: Never Substance use type: does not use Pets and animals: No What type of physical activity do you participate in: none Seatbelt use: always Do you feel safe at home: Yes Do you feel safe in your relationship?: Yes History History 5 Para 3 Hx # Term Pregnancies Multiple births Hx # Pregnancies Ectopic pregnancies AB induced Hx Number of Living Children AB spontaneous Exam Narrative Exam Narrative: 1.Const: Well-nourished, Well-developed, appearing stated age 2.Eyes: PERRL, no conjunctival injection, and symmetrical lids. 3.ENT: Atraumatic external nose and ears. Moist MM. Neck: Symmetric, trachea midline, No thyromegaly. 4.CVS: +S1/S2, No murmurs or gallops. Peripheral pulses 2+ and equal in all extremities. Brisk capillary refill in all extremities. Palpation over the fourth rib on the left anterior chest demonstrates reproducible tenderness with the patient states his identical to the pain that she was feeling. Defibrillator is unremarkable on exam on her lateral chest wall. No evidence of redness or drainage or discharge or infection or cellulitis or redness. 5.RESP: Unlabored respiratory effort. Minimal crackle in the left lung field. No wheezes or rhonchi. 6.GI: Soft, Nontender/Nondistended, No hepatosplenomegaly. No guarding or rebound. Appropriately gravid abdomen. No significant tenderness on palpation. 7.MSK: Normocephalic/Atraumatic, Extremities w/o deformity or ttp No cyanosis or clubbing, Normal movement of all extremities 8.Skin: Warm, Dry. No rashes or lesions. 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 Sensation grossly intact, no focal neurologic deficits. 10.Psych: (AAO) x3. Appropriate mood and affect Course Vital Signs Vital signs: Vital Signs Temperature 36.8 C 06/09/22 20:33 Pulse 63 06/09/22 20:33 Respiratory Rate 18 06/09/22 20:33 Blood Pressure 121/66 06/09/22 20:33 Pulse Oximetry 98 06/09/22 20:33 Temperature 36.6 C 06/09/22 23:48 Temperature Source Oral 06/09/22 23:48 Pulse 83 06/09/22 23:48 Respiratory Rate 17 06/09/22 23:48 Respiratory Effort Non-Labored 06/09/22 20:40 Blood Pressure 106/67 06/09/22 23:48 Pulse Oximetry 98 06/09/22 23:48 Oxygen Delivery Method Room Air 06/09/22 23:48 Oxygen Flow Rate 0 06/09/22 23:48 Pain Level 7 06/09/22 23:48 Lab/Test Results Lab/Test Results: 06/09/22 22:13 Blood Blood Culture - Pending 06/09/22 22:13 Blood Blood Culture - Pending Laboratory Tests Range/Units 06/09/22 06/09/22 06/09/22 21:00 21:00 21:00 WBC (4.4-10.8) 10^3/uL 22.20 H RBC (3.93-5.22) 10^6/uL 3.33 L Hgb (11.2-15.7) g/dL 9.6 L Hct (36.0-46.0) % 29.0 L MCV (80-95) fL 87 MCH (27.0-33.0) pg 28.8 MCHC (32.0-36.0) % 33.1 RDW (11.7-14.6) % 16.0 H Plt Count (130-400) 10^3/uL 311 MPV (8.0-11.0) fL 11.3 H Immature Gran % See Differential Neutrophils % 74.0 Band Neutrophils % 1 Lymphocytes % 13.0 Monocytes % 11.0 Eosinophils % 0.0 Basophils % 0.0 Metamyelocytes % 1 Nucleated RBC % (0.0-0.3) % 0.0 Absolute Neutrophils (1.2-6.7) 10^3/uL 16.65 H Absolute Lymphocytes (1.2-3.4) 10^3/uL 2.89 Absolute Monocytes (0.1-0.8) 10^3/uL 2.44 H Absolute Eosinophils (0.0-0.7) 10^3/uL 0.00 Absolute Basophils (0.0-0.2) 10^3/uL 0.00 RBC Morphology Normal Sodium (136-145) mmol/L 136 Potassium (3.5-5.1) mmol/L 3.9 Chloride (98-107) mmol/L 101 Carbon Dioxide (21.0-32.0) mmol/L 24.8 Anion Gap (3-11) mmol/L 10.2 BUN (7-18) mg/dL 11 Creatinine (0.55-1.02) mg/dL 0.9 Estimated GFR/1.73 m2 (mL/min/1.73m2) >= 60.00 Glucose (74-106) mg/dL 85 Calcium (8.5-10.1) mg/dL 9.4 Total Bilirubin (0.2-1.0) mg/dL 0.1 L AST (15-37) U/L 12 L ALT (14-59) U/L 23 Alkaline Phosphatase (46-116) U/L 88 Troponin I (<or=60) ng/L < 50 NT-Pro-B Natriuret Pep (<300) pg/mL 81 Total Protein (6.4-8.2) g/dL 6.9 Albumin (3.4-5.0) g/dL 2.8 L Urine Color (Yellow) Yellow Urine Clarity (Clear) Clear Urine pH (5-8) 7.0 Ur Specific Pyatt (1.005-1.025) 1.015 Urine Protein (Negative) mg/dL Negative Urine Ketones (Negative) mg/dL Negative Urine Blood (Negative) Negative Urine Nitrite (Negative) Negative Urine Bilirubin (Negative) Negative Urine Urobilinogen (Up TO 0.2) EU/dL 0.2 Ur Leukocyte Esterase (Negative) Negative Urine Glucose (Negative) mg/dL Negative
== END 2022-06-10 01:25 | disposition home or self-care (01) ==
LOC: ER 21:45 → OBS 22:57
PROVIDERS: Emergency Provider Student in an Organized Health Care Education/Training Program
DX: O99.513 Diseases of the respiratory system complicating pregnancy, third trimester (principal); J40 Bronchitis, not specified as acute or chronic; J18.9 Pneumonia, unspecified organism; O26.893 Other specified pregnancy related conditions, third trimester; R10.2 Pelvic and perineal pain; O99.113 Other diseases of the blood and blood-forming organs and certain disorders involving the immune mechanism complicating pregnancy, third trimester; D72.829 Elevated white blood cell count, unspecified; O99.413 Diseases of the circulatory system complicating pregnancy, third trimester; I10 Essential (primary) hypertension; O99.333 Smoking (tobacco) complicating pregnancy, third trimester; F17.210 Nicotine dependence, cigarettes, uncomplicated; Z3A.30 30 weeks gestation of pregnancy
CPT/HCPCS: 36415; 76815; 80053; 87040; 93005; 93308; 96361; 96365; 99284; 81003; 83880; 84484; 85025; 93010; J0456

== ENCOUNTER 2022-06-17 03:00 | Outpatient (RCR) | payer MEDICAID, SELFPAY ==
[2022-06-10] MEDS: Normal Saline Flush 10 ML SYR IVP (12:13)
[2022-06-10] MEDS: IRON SUCROSE COMPLEX 200 MG in Normal Saline 100 ML 220 MG IVPB (12:28)
[2022-06-17 08:56] LABS: HCT 27.7 % (36.0-46.0); HGB 9.2 g/dL (11.2-15.7)
[2022-06-17] MEDS: IRON SUCROSE COMPLEX 200 MG in Normal Saline 100 ML 220 MG IVPB (09:51)
[2022-06-17] MEDS: Normal Saline Flush 10 ML SYR IVP (09:51)
== END 2022-06-19 23:59 | disposition home or self-care (01) ==
LOC: INF 03:00
PROVIDERS: Visit Provider Obstetrics & Gynecology Gynecology
DX: O99.013 Anemia complicating pregnancy, third trimester (principal)
CPT/HCPCS: 36415; 96365; 85014; 85018; J1756

== ENCOUNTER 2022-07-01 10:27 | Outpatient (CLI) | payer MEDICAID, SELFPAY ==
[2022-07-01 10:47] VITALS: BP 118/64; PULSE 96; TEMP 37.2
[2022-07-01 11:13] VITALS: BP 118/64; PULSE 96
[2022-07-01] MEDS: Lactated Ringers 1,000 ML 1000 ML IV (12:23)
--- NOTE | 2022-07-01 12:44 | W.OBCONSULT ---
Date of service: 07/01/22 Time of Service: 12:00 Assessment and Plan Assessment and plan (1) Pelvic cramping: Status: Acute Assessment and plan: Occasional contractions noted but nothing regular. No cervical change or other e/o active labor. Soon after arrival the FHT was Cat 2 with a decel and a period of minimal variability with recurrent small variable decels. After giving the pt a fluid bolus the tracing improved to Cat 1. She was monitored for 2hrs with Cat 1 tracing prior to discharge to home at her request. BPP 10/10 prior to D/C. Strong precautions given on reasons to call for signs of PTL or decreased movement. Ideally she would go [place] [facility] [place] due to her heart issues. History of Present Illness Narrative: Pt says she has not been feeling great today. She has back and abd pains and period-like cramping. She says she leaks fluid if she coughs or sneezes but not at rest. She is not wearing a pad. No bleeding. +FM. No cardiac concerns. She gets her care at [facility] [place] due to h/o cardiac arrest, currently with a defibrillator in place. Review of Systems Constitutional Constitutional: Reports system reviewed and no additional complaints, except as documented Gastrointestinal Gastrointestinal: Denies nausea and Denies vomiting Genitourinary Genitourinary: Reports system reviewed and no additional complaints, except as documented Musculoskeletal Comments: No regular contractions PFSH All Active Problems Pelvic cramping (Acute) Cough (Acute) Bronchitis (Acute) Respiratory infection (Acute) Anemia (Chronic) Generalized muscular abdominal pain (Acute) Anemia affecting (Acute) Tobacco use (Acute) Hx of cardiac arrest (Acute) 11/04/21. VF cardiac arrest. SQ cardiac pacemaker in place. Abdominal pain (Acute) (Acute) Anxiety and depression (Chronic) Migraine headache without aura (Acute) Facial paresthesia (Acute) Medical History Allergic rhinitis Anorexia Anxiety disorder Asthma Flaherty's palsy Bipolar 1 disorder Cigarette nicotine dependence Constipation Essential hypertension GERD (gastroesophageal reflux disease) Hypokalemia Low back pain Major depressive disorder Reactive airway disease Recurrent sinus infections Subacute vaginitis Substance abuse Surgical History History of dilation and curettage Family History Father , 42 YEARS ALCOHOLIC Alcohol abuse Heat exhaustion Pneumonia Maternal Uncle Pulmonary arterial hypertension Social History Smoking/Tobacco Use Status: Current every day Tobacco Type: cigarettes Smoking risk assessment performed?: Yes Alcohol Intake: never Drug use: Never Substance use type: does not use Pets and animals: No What type of physical activity do you participate in: none Seatbelt use: always Do you feel safe at home: Yes Do you feel safe in your relationship?: Yes History History 5 Para 3 Hx # Term Pregnancies Multiple births Hx # Pregnancies Ectopic pregnancies AB induced Hx Number of Living Children AB spontaneous Exam Narrative Exam Narrative: Comfortable. No acute distress Const General: cooperative, healthy appearing, comfortable and no acute distress HENMT Head: normocephalic and atraumatic Resp Effort & Inspection: normal respiratory effort Other: Cx: 1/50+% (did not push to internal os). No bleeding. Unchanged at repeat exam 2+hrs later Results Last Vital Signs Pulse 96 H 07/01/22 11:13 BP 118/64 07/01/22 11:13 Imaging Imaging Studies: Bedside sono: BPP 8/8 with lots of movement noted.
[2022-07-01 13:44] LABS: Bilirubin Negative (Negative); Blood Negative (Negative); Clarity Clear (Clear); Glucose Negative (Negative); Ketones Negative (Negative); Leukocyte Esterase Negative (Negative); Nitrite Negative (Negative); Urobilinogen 0.2 EU/dL (Up TO 0.2)
[2022-07-01 14:10] LABS: *AMPHETAMINES SCREEN URINE Negative (Negative); *BARBITURATES SCREEN URINE Negative (Negative); *BENZODIAZEPINES SCREEN URINE Negative (Negative); Cannabinoids THC Negative (Negative); Cocaine Screen,Urine Negative (Negative); METHADONE URINE SCREEN Negative (Negative); OPIATES URINE SCREEN Negative (Negative); Tricyclic Antidepressants Negative (Negative)
--- NOTE | 2022-07-11 17:21 | W.OBNST ---
Date of service: 07/01/22 Time of Service: 13:00 NST Evaluation Reason for NST Reasons for Nonstress Test: FALSE LABOR Gestational Age Gestational Age in Weeks and Days: 33 Weeks and 4Days Test and Monitor Explained Test/Monitor Explained: Test Explained, Monitor Explained and Patient Verbalized Understanding Vital Signs Blood Pressure: 118/64 Pulse: 96 Temperature: 99.0 F Urine Results Urine Protein: Negative Urine Ketones: Negative Urine Glucose: Negative Urine Blood: Negative NST Information Date on Monitor: 07/01/22 Time on Monitor: 10:45 NST Evaluation Patient States Movement: Present FHR Baseline: 145 Variability: Moderate 6-25 bpm Accelerations: 15x15 Note NST Note Note: NST initially reaction then there was a 2min deceleration followed by a period of minimal variability with no accelerations. She had an occasional late and variable deceleration. After hydration with IVF she had 2hrs of Cat 1 FHT prior to discharge home. NST Reviewed and Verified by: Yaseimn Coburn
[2022-07-11 17:23] VITALS: BP 118/64; PULSE 96; TEMP 37.2
== END 2022-07-01 15:10 | disposition home or self-care (01) ==
LOC: BCD 10:30 → OBS 10:42
PROVIDERS: Visit Provider Obstetrics & Gynecology
DX: O47.03 False labor before 37 completed weeks of gestation, third trimester (principal); Z3A.33 33 weeks gestation of pregnancy
CPT/HCPCS: 59025; 80307; 81003

== ENCOUNTER 2022-07-16 02:41 | Outpatient (RCR) | payer MEDICAID, SELFPAY ==
[2022-06-25] MEDS: Normal Saline Flush 10 ML SYR IVP (09:13)
[2022-06-25 09:20] LABS: HCT 30.2 % (36.0-46.0); HGB 10.1 g/dL (11.2-15.7)
[2022-06-25] MEDS: IRON SUCROSE COMPLEX 200 MG in Normal Saline 100 ML 440 MG IVPB (09:55)
[2022-07-01] MEDS: IRON SUCROSE COMPLEX 200 MG in Normal Saline 100 ML 440 MG IVPB (09:20)
[2022-07-01] MEDS: Normal Saline Flush 10 ML SYR IVP (09:21)
[2022-07-08 09:58] LABS: HCT 28.5 % (36.0-46.0); HGB 9.3 g/dL (11.2-15.7)
[2022-07-08] MEDS: IRON SUCROSE COMPLEX 200 MG in Normal Saline 100 ML 440 MG IVPB (10:11)
[2022-07-08] MEDS: Normal Saline Flush 10 ML SYR IVP (10:11)
== END 2022-07-19 23:59 | disposition home or self-care (01) ==
LOC: INF 02:41
PROVIDERS: Visit Provider Obstetrics & Gynecology Gynecology
DX: O99.013 Anemia complicating pregnancy, third trimester (principal)
CPT/HCPCS: 36415; 96365; 85014; 85018; J1756

== ENCOUNTER 2022-07-22 13:23 | Outpatient (CLI) | payer MEDICAID, SELFPAY ==
[2022-07-22 15:27] VITALS: BP 143/68; PULSE 112; TEMP 208.9; TEMP 98.3
[2022-07-22 17:15] LABS: ROM Plus Negative
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
[2022-07-22 17:47] VITALS: BP 143/68; PULSE 112; TEMP 208.9; TEMP 98.3
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
== END 2022-07-22 17:40 | disposition home or self-care (01) ==
LOC: BCD 13:25 → OBS 15:26
PROVIDERS: Visit Provider Obstetrics & Gynecology Gynecology
DX: O26.893 Other specified pregnancy related conditions, third trimester (principal); Z3A.36 36 weeks gestation of pregnancy; O41.8X30 Other specified disorders of amniotic fluid and membranes, third trimester, not applicable or unspecified
CPT/HCPCS: 59025; 84112

== ENCOUNTER 2022-10-09 07:19 | Emergency (ER) | payer MEDICAID, SELFPAY ==
[2022-10-09 07:21] VITALS: BP 124/84; PULSE 65; RESP 18; TEMP 36.6; O2SAT 100
[2022-10-09 07:48] VITALS: RESP 16
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
[2022-10-09 08:45] LABS: Abs Immature Grans 0.02 10^3/uL (0.0-0.06); Absolute Basophil Count 0.04 10^3/uL (0.0-0.2); Absolute Eosinophil Count 0.33 10^3/uL (0.0-0.7); Absolute Lymphocyte Count 2.47 10^3/uL (1.2-3.4); Absolute Monocyte Count 0.47 10^3/uL (0.1-0.8); Absolute Neutrophil Count 2.91 10^3/uL (1.2-6.7); Basophils % 0.6; Eosinophils % 5.3; HGB 13.9 g/dL (11.2-15.7); Immature Grans % 0.3; Lymphocytes % 39.6; MCH 29.3 pg (27.0-33.0); MCHC 32.3 % (32.0-36.0); MCV 91 fL (80-95); Monocytes % 7.5; Neutrophils % 46.7; RBC 4.75 10^6/uL (3.93-5.22); RDW 13.2 % (11.7-14.6); RDW-SD 44.4 fL; WBC 6.24 10^3/uL (4.4-10.8)
[2022-10-09 08:57] LABS: Diff Comment PLT Morph Reviewed; RBC Morphology Normal
[2022-10-09 09:10] LABS: COVID-19 PCR Negative (Negative); Influenza A PCR Negative (Negative); Influenza B PCR Negative (Negative); RSV PCR Negative (Negative)
[2022-10-09 09:10] LABS: PTT Activated 27.9 sec (21.0-27.5); Prothrombin Time 10.4 sec (9.3-11.0)
[2022-10-09 09:27] LABS: ALT 26 U/L (14-59); AST 12 U/L (15-37); Albumin 3.8 g/dL (3.4-5.0); Alkaline Phosphatase 70 U/L (46-116); Anion Gap 8.9 mmol/L (3-11); BUN 12 mg/dL (7-18); Bilirubin, Total 0.3 mg/dL (0.2-1.0); CO2 26.1 mmol/L (21.0-32.0); Calcium 8.8 mg/dL (8.5-10.1); Chloride 104 mmol/L (98-107); Estimated GFR 73.95 (mL/min/1.73m2); Glucose 82 mg/dL (74-106); Potassium 4.3 mmol/L (3.5-5.1); Sodium 139 mmol/L (136-145); Total Protein 6.6 g/dL (6.4-8.2); Troponin I < 50 ng/L (<or=60)
--- NOTE | 2022-10-09 09:45 | DI.CT_ITS ---
Exam(s) CT CHEST PE CTA EXAM: CT CHEST PE CTA CLINICAL HISTORY: chest pain. TECHNIQUE: Imaging Protocol: CT angiography of the chest was performed using pulmonary embolus rosie col. Multi planar reconstructions were performed. CONTRAST MATERIAL: Intravenous: Omnipaque 350 Contrast volume: 100 cc COMPARISON: CT CT THORAX ABD/PEL CTA from 11/21/2021 FINDINGS: CHEST: PULMONARY ARTERIES: There are no intraluminal filling defects to suggest acute pulmonary emboli. LUNGS: There are no infiltrates nor evidence of pulmonary infarction.. There are no pleural effusions . Small benign-appearing 3 millimeter pleural base nodule in the lateral basal segment of the left l ower lobe is unchanged. No new significant pulmonary nodules evident. MEDIASTINUM: There is no hilar nor mediastinal adenopathy. Visualized thyroid unremarkable. CARDIAC: Heart size is upper normal. There is no pericardial effusion.Caliber of the thoracic aorta is within normal limits. There is no significant shift of the interventricular septum. PARTIALLY VISUALIZED UPPERMOST ABDOMEN: No obvious findings OSSEOUS: No osseous lesions nor fractures.Again noted is an implanted device in the left chest wall w ith lead extending anterior to the sternum, similar to previous study.. IMPRESSION: 1. No evidence of acute pulmonary emboli. No evidence of pulmonary infarction.No pleural effusions. No infiltrates. No significant intrathoracic adenopathy. 2. Small benign appearing 3 millimeter subpleural nodule in left lower lobe is unchanged from prior C T scan 11/21/2021. No new nodules evident. RADIATION DOSE DELIVERED: 350.58mGy.cm Total DLP DATA REPOSITORY: All CT scans at this facility are submitted to the National Radiology Data Registry (NRDR) Dose Index Registry (DIR) with the [employer] (A[employer]). RADIATION OPTIMIZATION: All CT scans at this facility use at least one of these dose optimization te chniques: automated exposure control; mA and/or kV adjustment per patient size (includes targeted exa ms where dose is matched to clinical indication); or iterative reconstruction.
[2022-10-09] MEDS: Omnipaque 350 MG/ML 100 ML BTL IJ (10:06)
[2022-10-09] MEDS: Normal Saline - Diluent 50 ML VIAL IJ (10:06)
[2022-10-09] MEDS: Normal Saline Flush 10 ML SYR IVP (10:08)
[2022-10-09 10:27] VITALS: BP 133/74; PULSE 46; TEMP 36.8; O2SAT 100
[2022-10-09 11:28] VITALS: BP 131/88; PULSE 48; TEMP 36.5; O2SAT 99
== END 2022-10-09 11:44 | disposition home or self-care (01) ==
PROVIDERS: Emergency Provider Student in an Organized Health Care Education/Training Program
DX: M94.0 Chondrocostal junction syndrome [Tietze] (principal); J20.9 Acute bronchitis, unspecified; I10 Essential (primary) hypertension; J45.909 Unspecified asthma, uncomplicated; S70.11XA Contusion of right thigh, initial encounter; F17.210 Nicotine dependence, cigarettes, uncomplicated; Z20.822 Contact with and (suspected) exposure to COVID-19; Z86.74 Personal history of sudden cardiac arrest; Z79.899 Other long term (current) drug therapy; X58.XXXA Exposure to other specified factors, initial encounter
CPT/HCPCS: 36415; 71275; 80053; 87637; 99284; 99285; 83735; 84484; 85025; 85610; 85730; J3490

== ENCOUNTER 2023-01-07 01:12 | Outpatient (CLI) | payer MEDICAID, SELFPAY ==
--- NOTE | 2023-01-07 06:59 | DI.US_ITS ---
Exam(s) US PELVIS TRANSVAGINAL EXAM: US PELVIS TRANSVAGINAL CLINICAL HISTORY: rlq pain, r10.31,inguinal pain with external rotation.. TECHNIQUE: Transabdominal and transvaginal pelvic ultrasound was performed using standard protocol. COMPARISON: CT CT THORAX ABD/PEL CTA from 11/21/2021 US POCUS EXAM from 06/09/[address] CHEST PE CTA from 10/09/2022 FINDINGS: UTERUS: Position: Anteverted. Size: 9.1 long by 5.6 AP by 7.5 transverse cm Endometrium: 0.8 cm. Normal for patient's menstrual status. Myometrium: Unremarkable. There is a nonspecific 2 mm calcification within the myometrium. Cervix: Unremarkable. OVARIES: Right: 2.7 x 1.6 x 1.4 cm Cyst or mass: No suspicious cystic or solid masses. Left: 2.6 x 1.4 x 2.4 cm Cyst or mass: No suspicious cystic or solid masses. DOPPLER: Color: Symmetric and uniform flow to both ovaries. CUL-DE-SAC: Free fluid: None. Other: None. IMPRESSION: 1. Normal-appearing uterus with endometrial stripe within normal limits. 2. Unremarkable bilateral ovaries. DATA REPOSITORY:
== END 2023-01-07 01:32 ==
LOC: DI 01:12
PROVIDERS: Visit Provider Obstetrics & Gynecology Gynecology
DX: R10.31 Right lower quadrant pain (principal); N85.8 Other specified noninflammatory disorders of uterus
CPT/HCPCS: 76830; 76856

== ENCOUNTER 2023-12-09 10:32 | Outpatient (REF) | payer MEDICAID, SELFPAY ==
--- NOTE | 2023-12-09 09:45 | PAPFT_PTH ---
PATIENT: Aniya Luque LOC: [facility] U#:[id number] AGE/SX: 38/F ROOM: RE12/09/[address]: Danielle Ricci : 1985 BED: DIS: 12/09/2023 SPEC #: [id number] RECD: 12/09/23 12:49 STATUS: TRIXIE REFrank #: [id number] TAMARA: 12/09/23 09:[address]: Danielle Ricci DEPT: [facility] Cytology RECD BY: Roz Stevens ENTERED: 12/09/23 12:53 SP TYPE: PAPFT GELACIO DR: Unknown,Unknown Tissues: 1 - CX/ENDOCX FOR PAP SMEARS Procedures: PAP THIN PREP/UVM Screening HPV DNA PROBE Comments: [id number]
[2023-12-10 13:18] LABS: Chlamydia Result Negative (Negative); GC Result Negative (Negative)
== END 2023-12-09 10:33 | disposition home or self-care (01) ==
LOC: LBN 10:32
PROVIDERS: Visit Provider Obstetrics & Gynecology Gynecology
DX: N89.8 Other specified noninflammatory disorders of vagina (principal); Z11.3 Encounter for screening for infections with a predominantly sexual mode of transmission
CPT/HCPCS: 87491; 87591; 88142; 87480; 87510; 87624; 87660

== ENCOUNTER → 2024-05-03 02:03 | Outpatient (CLI) | payer MEDICAID, SELFPAY ==
--- NOTE | 2024-05-03 10:00 | DI.US_ITS ---
Exam(s) US OB F/U FACIAL/LVOT/RVOT EXAM: US OB F/U FACIAL/LVOT/RVOT CLINICAL HISTORY: no imaging since +UPT. hx cardiac arrest z86.74 z32.01. TECHNIQUE: Transabdominal obstetrical ultrasound performed. COMPARISON: No exams were available for comparison FINDINGS: Number of fetuses: One. position: Variable Placental grade: 1 Placental location: Posterior. Low lying. The edge of the placenta measures 1.7 cm from the interna l os. BIOMETRIC DATA: BPD: 34mm = 16+ 3 weeks HC: 127mm = 16+ 3 weeks AC: 101mm = 16+ 1 weeks FL: 21mm = 16+ 2 weeks EFW: 149 grms 38% Composite Age: 16+ 2 weeks EDC by US: 16 October 2024 Heart Rate: 161BPM Amniotic fluid : Amount of fluid is within normal limits. IMPRESSION: 1. Single live intrauterine gestation with composite age of 16+ 2 weeks 2. Low lying placenta. DATA REPOSITORY:
== END ==
PROVIDERS: Visit Provider Obstetrics & Gynecology Gynecology
DX: Z32.01 Encounter for pregnancy test, result positive (principal); Z86.74 Personal history of sudden cardiac arrest
CPT/HCPCS: 76815

== ENCOUNTER 2024-09-07 10:47 | Outpatient (CLI) | payer MEDICAID, SELFPAY ==
[2024-09-07 16:01] VITALS: BP 136/82; PULSE 84; TEMP 36.8
[2024-09-07 16:06] VITALS: BP 136/82; PULSE 84
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
[2024-09-08 08:18] VITALS: BP 136/82; PULSE 84; TEMP 36.8
== END 2024-09-07 16:45 ==
LOC: BCD 10:49 → OBS 15:55
PROVIDERS: Visit Provider Obstetrics & Gynecology Gynecology
DX: O26.893 Other specified pregnancy related conditions, third trimester (principal); R10.2 Pelvic and perineal pain; Z3A.34 34 weeks gestation of pregnancy
CPT/HCPCS: 59025

== ENCOUNTER 2024-09-15 01:50 | Outpatient (RCR) | payer MEDICAID, SELFPAY ==
[2024-09-10 08:00] LABS: Abs Immature Grans 0.06 10^3/uL (0.0-0.06); Absolute Basophil Count 0.04 10^3/uL (0.0-0.2); Absolute Eosinophil Count 0.26 10^3/uL (0.0-0.7); Absolute Lymphocyte Count 2.73 10^3/uL (1.2-3.4); Absolute Monocyte Count 0.57 10^3/uL (0.1-0.8); Absolute Neutrophil Count 6.92 10^3/uL (1.2-6.7); Basophils % 0.4 %; Eosinophils % 2.5 %; HCT 29.8 % (36.0-46.0); HGB 9.7 g/dL (11.2-15.7); Immature Grans % 0.6 %; Lymphocytes % 25.8 %; MCH 27.7 pg (27.0-33.0); MCHC 32.6 % (32.0-36.0); MCV 85 fL (80-95); MPV 10.3 fL (8.0-11.0); Monocytes % 5.4 %; Neutrophils % 65.3 %; Platelet Count 310 10^3/uL (130-400); RDW 15.2 % (11.7-14.6); RDW-SD 46.8 fL; WBC 10.58 10^3/uL (4.4-10.8)
[2024-09-10] MEDS: Normal Saline Flush 10 ML SYR IVP (08:46)
[2024-09-10] MEDS: IRON SUCROSE COMPLEX 200 MG in Normal Saline 100 ML 440 MG IVPB (08:46)
[2024-09-10 08:55] LABS: Iron 29 ug/dL (50-170); Total Iron Binding Capacity 604 ug/dL (250-450); Transferrin Sat 5 % (15-50)
== END 2024-09-18 23:59 | disposition home or self-care (01) ==
LOC: INF 01:50
PROVIDERS: Visit Provider Obstetrics & Gynecology Gynecology
DX: O99.013 Anemia complicating pregnancy, third trimester (principal)
CPT/HCPCS: 96365; 83540; 83550; 85025; J1756

== ENCOUNTER 2024-09-20 10:58 | Outpatient (RCR) | payer MEDICAID, SELFPAY ==
--- OUTSIDE RECORDS SUMMARY | 2024-09-20 11:00 | XMS_ITS ---
Author Organization [facility] Address [address], [place] [id number] Care Team Providers Care Legal Records Clerk Name Role Phone Kenia Lawrence Primary Care Provider Allergies Allergen (clinical drug ingredient) Drug/Non Drug Allergy documented on EMR Reaction Allergy Type Onset Date Status amoxicillin / clavulanate Augmentin GI upset Drug Allergy Active morphine Morphine Sulfate Muscle Pain Drug Allergy Active quetiapine Seroquel nausea, anxiety Drug Allergy Active ipratropium Ipratropium Headaches Drug Allergy Act brendan REASON FOR VISIT F/u cough Medications Medication SIG (Take, Route, Frequency, Duration) Notes Start Date End Date Status Antacid & Antigas 200-200-20 MG/5ML 10 ml as needed combined with lidocaine Orally Three times a day for 30 days 04/10/2022 Active amLODIPine Besylate 10 MG 1 tablet Orally Once a day at bedtime for 90 days Active Amoxicillin 500 MG 1 capsule Orally every 8 hrs for 7 days 09/01/2024 Active Valium 2 MG 1 tablet Orally thre e times day for 28 days Active Vitamins 28-0.8 MG 1 tablet Orally Once a day for 90 days Active Advair HFA 230-21 MCG/ACT 2 puffs Inhalation Twice a day for 30 days ADVAIR BRAND NAME ONLY PER INSURANCE COVERAGE 12/12/2023 Active Fluticasone Propionate HFA 220 MCG/ACT 1 puff Inhalation Twice a day for 30 days 04/21/2024 Active Fluticasone Propionate 50 MCG/ACT 1 spray in each nostril Nasally Once a day for 30 days 04/21/2024 Active Albuterol Sulfate (2.5 MG/3ML) 0.083% 3ML Inhalation every 4 hrs for 7 days As needed 08/16/2021 Active Nicoderm CQ 7 MG/24HR 1 patch to skin Transdermal Once a day for 14 days start with 21 mg patch use for 2 weeks then decrease to 14mg for 2 weeks and then start 7mg patch for 2 weeks to help with smoking cessation 02/25/2024 Active Nitroglycerin 0.4 MG as directed Sublingual Once a day for 30 days Active Pyridoxine HCl 25 MG 1 tablet Orally fou r times a day for 30 days Vitamin B6 02/18/2024 Active Cetirizine HCl 10 MG 1 tablet Orally Onc e a day for 90 days 04/16/2022 Active Nicoderm CQ 14 MG/24HR 1 patch to skin Transdermal Once a day for 14 days start with 21 mg patch use for 2 weeks then decrease to 14mg for 2 weeks and then start 7mg patch for 2 weeks to help with smoking cessation 02/25/2024 Active Nicoderm CQ 21 MG/24HR 1 patch to skin Transdermal Once a day for 14 days start with 21 mg patch use for 2 weeks then decrease to 14mg for 2 weeks and then start 7mg patch for 2 weeks to help with smoking cessation 02/25/2024 Active Proventil HFA 108MCG/A as directed Inhalation 1 to 2 puffs Q 4 hours prn for 30 days Active Nebulizer - as directed Externally 3 times a day for 999 days 12/29/2017 Active Multivitamin - 1 tablet Orally Once a day for 90 days 09/08/2023 Active Sucralfate 1 GM/10ML 10 mL 1 hour before meals and at bedtime on an empty stomach Orally Four times a day for 30 days 10/16/2023 Active Miconazole Nitrate 2 % 1 applicatorful at bedtime Vaginal Once a day for 7 days 11/26/2023 Active Cannabinoids 15 MG as directed Orally twice a day 07/01/2023 Active Famotidine 40 MG 1 tab Orally Once a day for 30 days 09/07/2020 Active Meclizine HCl 25 MG 1/2 tablet as needed Orally up to three times a day for 7 days 07/31/2023 Active Ipratropium-Albuterol 0.5-2.5 (3) MG/3ML 3 ml Inhalation every 6 hrs 12/29/2017 Active Flovent HFA 110 MCG/ACT 1 puff Inhalation Twice a day for 30 days 07/25/2021 Active guaiFENesin ER 1200 MG 1 tablet as needed Orally every 12 hrs for 10 days 09/06/2024 Active Social History Sex Assigned At : Social History Observation Description Sex Assigned At Female Problems Problem Type SNOMED Code ICD Code Onset Dates Problem Status W/U Status Risk Notes Problem 22567137 Third trimester (Z34.93) Active confirmed Vital Signs Temperature 98.5 degrees Fahrenheit 09/06/20 24 Heart Rate 88 BPM 09/06/2024 Oximetry 98 % 09/06/2024 Height 64 in 09/06/2024 Encounters Encounter Location Date Provider Diagnosis [address] [id number] 09/06/2024 Kenia Melinda Acute cough R05.1 ; URI (upper respiratory infection) J06.9 ; Iron deficiency anemia D50.9 and Third trimester Z34.93 Assessments Encounter Date Diagnosis (ICD Code) Assessment Notes Treatment Notes Treatment Clinical Notes Section Notes 09/06/2024 Acute cough (ICD-10 - R05.1) Patient with URI and cough Complete amoxicillin 500 mg TID x7d Start Mucinex for cough Advised splinting while coughing Advised TYL PRN, rest, and hydration If symptoms do not improve or worsens, notify provider Nursing will reach out to [facility] to relay concerns regarding iron infusions Pt voiced understanding and is in agreement w/ plan. I spend a total of 30 mins today in pre, during, and post appt review, planning and documentation. 09/06/2024 URI (upper respiratory infection) (ICD-10 - J06.9) Patient with URI and cough Complete amoxicillin 500 mg TID x7d Start Mucinex for cough Advised splinting while coughing Advised TYL PRN, rest, and hydration If symptoms do not improve or worsens, notify provider Nursing will reach out to [facility] to relay concerns regarding iron infusions Pt voiced understanding and is in agreement w/ plan. I spend a total of 30 mins today in pre, during, and post appt review, planning and documentation. 09/06/2024 Iron deficiency anemia (ICD-10 - D50.9) Patient with URI and cough Complete amoxicillin 500 mg TID x7d Start Mucinex for cough Advised splinting while coughing Advised TYL PRN, rest, and hydration If symptoms do not improve or worsens, notify provider Nursing will reach out to [facility] to relay concerns regarding iron infusions Pt voiced understanding and is in agreement w/ plan. I spend a total of 30 mins today in pre, during, and post appt review, planning and documentation. 09/06/2024 Third trimester (ICD-10 - Z34.93) Patient with URI and cough Complete amoxicillin 500 mg TID x7d Start Mucinex for cough Advised splinting while coughing Advised TYL PRN, rest, and hydration If symptoms do not improve or worsens, notify provider Nursing will reach out to [facility] to relay concerns regarding iron infusions Pt voiced understanding and is in agreement w/ plan. I spend a total of 30 mins today in pre, during, and post appt review, planning and documentation. 09/06/2024 Other Scribed for Kenia Lawrence APRN, by sona Melgar scribe. I, Kenia Lawrence APRN, have personally reviewed and agree with the information entered by the scribe. Patient with URI and cough Complete amoxicillin 500 mg TID x7d Start Mucinex for cough Advised splinting while coughing Advised TYL PRN, rest, and hydration If symptoms do not improve or worsens, notify provider Nursing will reach out to [facility] to relay concerns regarding iron infusions Pt voiced understanding and is in agreement w/ plan. I spend a total of 30 mins today in pre, during, and post appt review, planning and documentation. Plan Of Treatment Medication Medication Name Sig Start Date Stop Date Notes guaiFENesin ER 1200 MG 1 tablet as neede d Orally every 12 hrs for 10 days 09/06/2024 Treatment Notes Assessment Notes Other Scribed for Kenia Lawrence APRN, by sona Melgar scribe. Kenia Abernathy APRN, have personally reviewed and agree with the information entered by the scribe. Next Appt Details Follow Up: prn, Reason: Progress Notes * Aniya LUQUE ADOB: [birth year] (39 yo F)Acc No.[id number]:09/06/2024 SDA Short Patient:?Aniya LUQUE Provider:?Dr. Kenia Lawrence, DNP, COLLECTIONS AND ARCHIVES DIRECTOR, SERVICE PARTS DRIVER-C :1985???Age:39 Y???Sex:Female D ate:09/06/2024 Address:[address], [id number] Subjective: * Chief Complaints: * ???F/u cough * HPI: ???INTERIM HISTORY::? 39 y/o female in 3rd trimester of presents for f/u cough Daughters have similar symptoms Reports that cough remains the same since last week On Amoxicillin, has been taking consistently Feels better but c/o pain in left ribs while coughing Wonders if she has pneumonia Patient tested negative for COVID Patient states that [facility] ordered iron infusions to [facility]?for LDA and . Patient states she is having trouble getting a hold of [facility] Wants to know if she can have the infusions done at [facility] instead. ???DEERING OF CARE::?Other Providers:?Has the patient seen any providers outside of [facility] since their last appointment with us??No * ROS:?Pertinent positives and negatives as listed in HPI. * Medical History:? * Surgical History:?DIC * Hospitalization/Major Diagno stic Procedure:?inpt psychiatric admissions- [facility] 2007inpatient psychiatric admission at [facility] 10/06 - 10/09/12[facility]-inpatient cardiac related 07/05-07/06Chest congestion, SOB 07/2018[place] [facility], heart burn and chest pain 04/22/ and [facility] psych 05/20/2020[place] [facility] 09/18-ardiac Arrest 11/04/21-11/14/21 * Family History:?Mother: mayra gee.?Father: 42 yrs, Alcoholic, heat exhaustion, pneumonia.?Daughter(s): alive, has an 11 y/o daughter Nataly who has ADHD and anxiety not presently on medicationHas a 4 y/o daughter Lilly.?Son(s): alive 17 yrs, has anxiety.?Sister: alive.?Maternal Uncle: pulmonary atrial HTN-2 aunts diagnosed.?1 sister(s) - healthy. .? * Medications:?TakingAmoxicill in 500 MG Capsule 1 capsule Orally every 8 hrs amLODIPine Besylate 10 MG Tablet 1 tablet Orally Once a day at bedtime Antacid & Antigas 200-200-20 MG/5ML Suspension 10 ml as needed combined with lidocaine Orally Three times a day Cannabinoids 15 MG Capsule as directed Orally twice a day , Notes: Use for anxiety PRNFamotidine 40 MG Tablet 1 tab Orally Once a day Flovent HFA 110 MCG/ACT Aerosol 1 puff Inhalation Twice a day Ipratropium-Albuterol 0.5-2.5 (3) MG/3ML Solution 3 ml Inhalation every 6 hrs Meclizine HCl 25 MG Tablet Chewable 1/2 tablet as needed Orally up to three times a day Miconazole Nitrate 2 % Cream 1 applicatorful at bedtime Vaginal Once a day Multivitamin(Multiple Vitamin) - Tablet 1 tablet Orally Once a day Nebulizer - Device as directed Externally 3 times a day Proventil HFA 108MCG/A AER as directed Inhalation 1 to 2 puffs Q 4 hours prn Sucralfate 1 GM/10ML Suspension 10 mL 1 hour before meals and at bedtime on an empty stomach Orally Four times a day Cetirizine HCl 10 MG Tablet 1 tablet Orally Once a day Pyridoxine HCl 25 MG Tablet 1 tablet Orally four times a day , Notes to Pharmacist: Vitamin [id number] 0.4 MG Tablet Sublingual as directed Sublingual Once a day Nicoderm CQ(Nicotine) 21 MG/24HR Patch 24 Hour 1 patch to skin Transdermal Once a day , Notes to Pharmacist: start with 21 mg patch use for 2 weeks then decrease to 14mg for 2 weeks and then start 7mg patch for 2 weeks to help with smoking cessationNicoderm CQ(Nicotine) 14 MG/24HR Patch 24 Hour 1 patch to skin Transdermal Once a day , Notes to Pharmacist: start with 21 mg patch use for 2 weeks then decrease to 14mg for 2 weeks and then start 7mg patch for 2 weeks to help with smoking cessationNicoderm CQ(Nicotine) 7 MG/24HR Patch 24 Hour 1 patch to skin Transdermal Once a day , Notes to Pharmacist: start with 21 mg patch use for 2 weeks then decrease to 14mg for 2 weeks and then start 7mg patch for 2 weeks to help with smoking cessationAlbuterol Sulfate (2.5 MG/3ML) 0.083% Nebulization Solution 3ML Inhalation every 4 hrs As neededFluticasone Propionate 50 MCG/ACT Suspension 1 spray in each nostril Nasally Once a day Fluticasone Propionate HFA 220 MCG/ACT Aerosol 1 puff Inhalation Twice a day Advair HFA(Fluticasone-Salmeterol) 230-21 MCG/ACT Aerosol 2 puffs Inhalation Twice a day , Notes to Pharmacist: ADVAIR BRAND NAME ONLY PER INSURANCE COVERAGEPrenatal Vitamins 28-0.8 MG Tablet 1 tablet Orally Once a day Valium(diazePAM) 2 MG Tablet 1 tablet Orally three times day Medication List reviewed and reconciled with the patientTaking Amoxicillin 500 MG Capsule 1 capsule Orally every 8 hrs Taking amLODIPine Besylate 10 MG Tablet 1 tablet Orally Once a day at bedtime Taking Antacid & Antigas 200-200-20 MG/5ML Suspension 10 ml as needed combined with lidocaine Orally Three times a day Taking Cannabinoids 15 MG Capsule as directed Orally twice a day , Notes: Use for anxiety PRNTaking Famotidine 40 MG Tablet 1 tab Orally Once a day Taking Flovent HFA 110 MCG/ACT Aerosol 1 puff Inhalation Twice a day Taking Ipratropium-Albuterol 0.5-2.5 (3) MG/3ML Solution 3 ml Inhalation every 6 hrs Taking Meclizine HCl 25 MG Tablet Chewable 1/2 tablet as needed Orally up to three times a day Taking Miconazole Nitrate 2 % Cream 1 applicatorful at bedtime Vaginal Once a day Taking Multivitamin(Multiple Vitamin) - Tablet 1 tablet Orally Once a day Taking Nebulizer - Device as directed Externally 3 times a day Taking Proventil HFA 108MCG/A AER as directed Inhalation 1 to 2 puffs Q 4 hours prn Taking Sucralfate 1 GM/10ML Suspension 10 mL 1 hour before meals and at bedtime on an empty stomach Orally Four times a day Taking Cetirizine HCl 10 MG Tablet 1 tablet Orally Once a day Taking Pyridoxine HCl 25 MG Tablet 1 tablet Orally four times a day , Notes to Pharmacist: Vitamin X8Fcuebu Nitroglycerin 0.4 MG Tablet Sublingual as directed Sublingual Once a day Taking Nicoderm CQ(Nicotine) 21 MG/24HR Patch 24 Hour 1 patch to skin Transdermal Once a day , Notes to Pharmacist: start with 21 mg patch use for 2 weeks then decrease to 14mg for 2 weeks and then start 7mg patch for 2 weeks to help with smoking cessationTaking Nicoderm CQ(Nicotine) 14 MG/24HR Patch 24 Hour 1 patch to skin Transdermal Once a day , Notes to Pharmacist: start with 21 mg patch use for 2 weeks then decrease to 14mg for 2 weeks and then start 7mg patch for 2 weeks to help with smoking cessationTaking Nicoderm CQ(Nicotine) 7 MG/24HR Patch 24 Hour 1 patch to skin Transdermal Once a day , Notes to Pharmacist: start with 21 mg patch use for 2 weeks then decrease to 14mg for 2 weeks and then start 7mg patch for 2 weeks to help with smoking cessationTaking Albuterol Sulfate (2.5 MG/3ML) 0.083% Nebulization Solution 3ML Inhalation every 4 hrs As neededTaking Fluticasone Propionate 50 MCG/ACT Suspension 1 spray in each nostril Nasally Once a day Taking Fluticasone Propionate HFA 220 MCG/ACT Aerosol 1 puff Inhalation Twice a day Taking Advair HFA(Fluticasone-Salmeterol) 230-21 MCG/ACT Aerosol 2 puffs Inhalation Twice a day , Notes to Pharmacist: ADVAIR BRAND NAME ONLY PER INSURANCE COVERAGETaking Vitamins 28-0.8 MG Tablet 1 tablet Orally Once a day Taking Valium(diazePAM) 2 MG Tablet 1 tablet Orally three times day Medication List reviewed and reconciled with the patient * Allergies:?Seroquel: nausea, anxietyMorphine Sulfate: Muscle PainIpratropium: Headaches - Side Effects - Criticality UnknownAugmentin: GI upset - Criticality Unknownno[Allergies Verified] Objective: * Vitals:?Temp:98.5F, HR:88BPM , Oxygen Sat: 98 %, Height: 64 in. * Examination: ???General Examination: ?GENERAL APPEARANCE:?alert, well hydrated, in no distress.?HEAD:?atraumatic.?EYES:?pupils equal, round, reactive to light, extraoccular motions intact..?EARS:?TMs lucent bilaterally with normal landmarks. No cerumen..?NOSE:?nares patent.?ORAL CAVITY:?mucosa moist, no lesions, palate intact.?THROAT:?no exudate, tonsils normal; injected posterior pharynx.?LYMPH NODES:?no lymphadenopathy.?HEART:?regular rate and rhythm without murmur.?LUNGS:?light coarse breath sounds RUL, otherwise clear.?CHEST:?chest wall pain, left side approx level of ribs 7-8 - pain occurs only with coughing.?SKIN:?warm and dry, good turgor.?EXTREMITIES:?good capillary refill in nail beds.?PERIPHERAL PULSES:?2+ throughout.? Assessment: * Assessment: 1.?Acute cough - R05.1 (Prim peg)???2.?URI (upper respiratory infection) - J06.9???3.?Iron deficiency anemia - D50.9???4.?Third trimester - Z34.93??? Patient with URI and cough Complete amoxicillin 500 mg TID x7d Start Mucinex for cough Advised splinting while coughing Advised TYL PRN, rest, and hydration If symptoms do not improve or worsens, notify provider Nursing will reach out to [facility] to relay concerns regarding iron infusions Pt voiced understanding and is in agreement w/ plan. I spend a total of 30 mins today in pre, during, and post appt review, planning and documentation. Plan: * Treatment: 2.?Others? Notes: Scribed for Kenia Lawrence APRN, by poli Melgar. I, Kenia Lawrence APRN, have personally reviewed and agreewith the information entered by the scribe. ?? * Procedure Codes:? * Follow Up:?prn * * Sign off status: Completed true * Provider:?Dr. Kenia Lawrence , FERMÍN, COLLECTIONS AND ARCHIVES DIRECTOR, SERVICE PARTS DRIVER-C Date:?09/06/2024 Generated for Isamar ding/Wallace/Markieransmitting on:?09/20/2024 11:00 AM EST History and Physical Notes * HPI (History of Present Illness) Category Sub-Category Detail Notes Category Not es INTERIM HISTORY: 39 y/o female in 3rd trimester of presents for f/u cough Daughters have similar symptoms Reports that cough remains the same since last week On Amoxicillin, has been taking consistently Feels better but c/o pain in left ribs while coughing Wonders if she has pneumonia Patient tested negative for COVID Patient states that [facility] ordered iron infusions to [facility] for LDA and . Patient states she is having trouble getting a hold of [facility] Wants to know if she can have the infusions done at [facility] instead DEERING OF CARE: Other Providers: Has the patient seen any providers outside of [facility] since their last appointment with us?: No Examination Category Sub-Category Detail Notes Category Not es General Examination GENERAL APPEARANCE: alert, w ell hydrated, in no distress HEAD: atraumatic EYES: pupils equal, round, reactive to light, extraoccular motions intact. EARS: TMs lucent bilateral ly with normal landmarks. No cerumen. NOSE: nares patent THROAT: no exudate, tonsils normal; injected posterior pharynx HEART: regular rate and rhy thm without murmur CHEST: chest wall pain, lef t side approx level of ribs 7-8 - pain occurs only with coughing LUNGS: light coarse breath sounds RUL, otherwise clear SKIN: warm and dry, good t urgor EXTREMITIES: good capillary refil l in nail beds PERIPHERAL PULSES: 2+ throughout LYMPH NODES: no lymphadenopathy ORAL CAVITY: mucosa moist, no les ions, palate intact
--- OUTSIDE RECORDS SUMMARY | 2024-09-20 11:00 | XMS_ITS | Continuity of Care Document ---
Author Organization [facility] Address [address] [place] [address] Encounter LTTL_[place] FIN NBR [id number] Date(s): 11/06/22 - 11/06/22 [facility] [address], [place] [address] Encounter Diagnosis Chest pain(Discharge Diagnosis) - 11/06/22 Discharge Disposition: Left Against Medical Advice Attending Physician: Claudia Bejarano MD Admitting Physician: Claudia Bejarano MD Allergies, Adverse Reactions, Alerts Substance Reaction Severity Status morphine Unknown Active SEROquel Unknown Active Functional Status 11/06/22 Other exposure to Infectious Disease Non e Medications aluminum hydroxide/magnesium hydroxide/simethicone 200 mg-200 mg-20 mg/5 mL oral suspension COMBINE 10ML WITH LIDOCAINE ORALLY THREE TIMES A DAY Start Date: 11/06/22 Status: Ordered amLODIPine 2.5 mg oral tablet TAKE ONE TABLET BY MOUTH EVERY DAY Start Date: 11/06/22 Status: Ordered clonazePAM 1 mg oral tablet TAKE ONE TABLET BY MOUTH THREE TIMES A DAY Start Date: 11/06/22 Status: Ordered famotidine 40 mg oral tablet TAKE ONE TABLET BY MOUTH TWICE A DAY Start Date: 11/06/22 Status: Ordered Mental Status 11/06/22 Eye Opening Response Mk Spontaneous ly Best Verbal Response Keystone Oriented Best Motor Response Mk Obeys comman ds Keystone Coma Score 15 Results Laboratory List Name Date Troponin-I 11/06/22 Drug Screen Urine 11/06/22 CBC w/ Diff 11/06/22 Comprehensive Metabolic Panel (CMP) 11/06 PT/ INR 11/06/22 Test Serum Qual 11/06/22 Troponin-I 11/06/22 Automated Diff 11/06/22 Most recent to oldest [Reference Range]: 1 2 WBC [4.8-10.8 K/mcL] 10.2 K/mcL (11/06/22 12:17 PM) RBC [4.20-6.10 Million/mcL] 4.53 Million /mcL (11/06/22 12:17 PM) Neutro Auto [42.2-75.2 %] 59.4 % (11/06/22 12:17 PM) Lymph Auto [20.5-51.1 %] 28.0 % (11/06/22 12: PM) Holmes Auto [1.7-9.3 %] 6.6 % (11/06/22: PM) Basophil Auto [0.0-0.8 %] 0.6 % (11/06/22:17 PM) Prothrombin Time [9.1-10.6 seconds] 10.1 seconds (11/06/22: PM) INR [0.9-1.1] 1.0 (11/06/22: PM) BUN [8-26 mg/dL] 15 mg/dL (11/06/22: PM) U Amph Scrn [Negative] Negative (11/06/22 2:26 PM) Glucose Level [74-106 mg/dL] 102 mg/dL (11/06/22:17 PM) Potassium Level [3.5-5.1 mmol/L] 3.9 mmo l/L (11/06/22: PM) Baso Absolute [0.0-0.2 K/mcL] 0.1 K/mcL (11/06/22:17 PM) U Benzodia Scrn [Negative] Negative (11/06/22 2:26 PM) MCV [80.0-99.0 fL] 90.3 fL (11/06/22 12:17 PM) AST [15-41 IntlUnit/L] 15 IntlUnit/L (11/06/22 12:17 PM) ALT [14-54 IntlUnit/L] 21 IntlUnit/L (11/06/22 12:17 PM) MCHC [32.0-36.0 g/dL] 33.3 g/dL (11/06/22 12:17 PM) Osmolality [275-295 mOsm/kg] 269 mOsm/kg *LOW* (11/06/22: PM) Troponin-I [<=0.05 ng/mL] 0.01 ng/mL (11/06/22 3:10 PM) 0.01 ng/mL (11/06/22 12:17 PM) Sodium Level [134-143 mmol/L] 134 mmol/L (11/06/22 12:17 PM) Lymph Absolute [1.2-3.4 K/mcL] 2.9 K/mcL (11/06/22 12:17 PM) Hct [37.0-52.0 %] 40.9 % (11/06/22 12:17 PM) U Cocaine Scrn [Negative] Negative (11/06/22 2:26 PM) Calcium Level [8.9-10.3 mg/dL] 9.3 mg/dL (11/06/22 12:17 PM) Holmes Absolute [0.1-0.6 K/mcL] 0.7 K/mcL *HI* (11/06/22 12:17 PM) Albumin Level [3.5-5.0 g/dL] 4.0 g/dL (11/06/22 12:17 PM) Protein Total [6.5-8.1 g/dL] 6.9 g/dL (11/06/22 12:17 PM) MCH [27.0-31.0 pg] 30.0 pg (11/06/22 12:17 PM) Neutro Absolute [1.4-6.5 K/mcL] 6.1 K/mc L (11/06/22 12:17 PM) Bilirubin Total [0.2-1.2 mg/dL] 0.2 mg/d L (11/06/22 12:17 PM) Hgb [12.0-18.0 g/dL] 13.6 g/dL (11/06/22 12:17 PM) Alk Phos [38-130 IntlUnit/L] 59 IntlUnit /L (11/06/22 12:17 PM) MPV [7.4-10.4 fL] 10.5 fL *HI* (11/06/22 12:17 PM) Platelets [130-400 K/mcL] 315 K/mcL (11/06/22 12:17 PM) CO2 [22-32 mmol/L] 27 mmol/L (11/06/22 12:17 PM) Eos Absolute [0.0-0.2 K/mcL] 0.5 K/mcL *HI* (11/06/22 12:17 PM) U Jovita Scrn [Negative] Negative (11/06/22 2:26 PM) U Opiate Scrn [Negative] Negative (11/06/22 2:26 PM) eGFR Non-AA 84 *NA* (11/06/22 12:17 PM) eGFR AA 84 *NA* (11/06/22 12:17 PM) Chloride Level [98-111 mmol/L] 98 mmol/L (11/06/22 12:17 PM) U Oxy Scrn [Negative] Negative (11/06/22 2:26 PM) U PCP Scrn [Negative] Negative (11/06/22 2:26 PM) RDW-CV [11.5-14.5 %] 13.8 % (11/06/22 12:17 PM) A/G Ratio 1.4 *NA* (11/06/22 12:17 PM) BUN/Creat Ratio [8.0-20.0] 16.7 (11/06/22 12:17 PM) Globulin 2.9 *NA* (11/06/22 12:17 PM) U THC Scr [Negative] Negative (11/06/22 2:26 PM) U PPX Scr [Negative] Negative (11/06/22 2:26 PM) U Methadone Scr [Negative] Negative (11/06/22 2:26 PM) hCG Qual Serum [Negative] Negative (11/06/22 12:17 PM) Imm Gran Absolute 0.04 *NA* (11/06/22 12:17 PM) Imm Gran Auto [0.0-0.5 %] 0.4 % (11/06/22 12:17 PM) NRBC Auto 0 *NA* (11/06/22 12:17 PM) NRBC Absolute 0 *NA* (11/06/22 12:17 PM) U Buprenorph Scr [Negative] Negative (11/06/22 2:26 PM) U mAMP Scr [Negative] Negative (11/06/22 2:26 PM) U TCA Scr [Negative] Negative (11/06/22 2:26 PM) Creatinine Level [0.44-1.00 mg/dL] 0.90 mg/dL (11/06/22 12:17 PM) Anion Gap [3.0-12.0] 9.0 (11/06/22 12:17 PM) Eos, Auto [0.00-3.00 %] 5.00 % *HI* (11/06/22 12:17 PM) Radiology Reports * Exam Date Time Procedure Performing Provider Status 11/06/22 12:38 PM XR Chest 2 Views Cha Rodriguez [facility] (Verified) Notes: (XR Chest 2 Views) Reason For Exam: cp;Chest pain XR Chest 2 Views EXAM DESCRIPTION: XR Chest 2 Views 11/06/2022 INDICATION: CHEST PAIN COMPARISON: None FINDINGS: Clear lungs with no focal infiltrate or pulmonary edema. Normal cardiomediastinal contour. Normal pleural margins with no pleural effusion or pneumothorax. Electrode overlying the anterior mid chest with electronic appliance in the left lateral chest wall. IMPRESSION: No active chest disease. JOB #: [id number] Final Signed by: Jonathan Barrow MD Signed (Electronic Signature): 11/06/2022 12:43 pm Vital Signs Most recent to oldest [Reference Range]: 1 2 Temperature Temporal Artery [36-38 Deg C ] 36.5 Deg C (11/06/22 11:46 AM) Peripheral Pulse Rate [60-100 bpm] 66 bp m (11/06/22 12:44 PM) 76 bpm (11/06/22 11:46 AM) Heart Rate Monitored [60-100 bpm] 73 bpm (11/06/22 12:44 PM) Respiratory Rate [12-24 br/min] 14 br/mi n (11/06/22 12:44 PM) 17 br/min (11/06/22 11:46 AM) Blood Pressure [90-140/60-90 mmHg] 111/7 4mmHg (11/06/22 12:44 PM) 108/82mmHg (11/06/22 11:46 AM) Mean Arterial Pressure Cuff 85 mmHg (11/06/22 12:44 PM) Weight Dosing 71.21 kg (11/06/22 12:07 PM) Weight Estimated 71.21 kg (11/06/22 11:46 AM) Height/Length Dosing 163.000 cm (11/06/22 12:07 PM) Height/Length Estimated 163.000 cm (11/06/22 11:46 AM) Social History Social History Type Response Tobacco Current everyday tob acco user Tobacco Use:. Sex Hospital Discharge Instructions Patient Education 11/06/2022 14:39:04 Nonspecific Chest Pain, Adult Nonspecific Chest Pain, Adult Chest pain is an uncomfortable, tight, or painful feeling in the chest. The pain can feel like a crushing, aching, or squeezing pressure. A person can feel a burning or tingling sensation. Chest paincan also be felt in your back, neck, jaw, shoulder, or arm. This pain can be worse when you move, sneeze, or take a deep breath. Chest pain can be caused by a condition that is life-threatening. This must be treated right away. It can also be caused by something that is not life- threatening. If you have chest pain, it can be hard to know the difference, so it is important to get help right away to make sure that you do not have a serious condition. Some life-threatening causes of chest pain include: ??? Heart attack. ??? A tear in the body's main blood vessel (aortic dissection). ??? Inflammation around your heart (pericarditis). ??? A problem in the lungs, such as a blood clot (pulmonary embolism) or a collapsed lung (pneumothorax). Some non life-threatening causes of chest pain include: ??? Heartburn. ??? Anxiety or stress. ??? Damage to the bones, muscles, and cartilage that make up your chest wall. ??? Pneumonia or bronchitis. ??? Shingles infection (varicella-zoster virus). Your chest pain may come and go. It may also be constant. Your health care provider will do tests and other studies to find the cause of your pain. Treatment will depend on the cause of your chest pain. Follow these instructions at home: Medicines ??? Take [id number] and prescription medicines only as told by your health care provider. ??? If you were prescribed an antibiotic medicine, take it as told by your health care provider. Donot stop taking the antibiotic even if you start to feel better. Activity ??? Avoid any activities that cause chest pain. ??? Do not lift anything that is heavier than 10 lb (4.5 kg), or the limit that you are told, untilyour health care provider says that it is safe. ??? Rest as directed by your health care provider. ??? Return to your normal activities only as told by your health care provider. Ask your health care provider what activities are safe for you. Lifestyle ??? Do not use any products that contain nicotine or tobacco, such as cigarettes, e-cigarettes, andchewing tobacco. If you need help quitting, ask your health care provider. ??? Do not drink alcohol. ??? Make healthy lifestyle changes as recommended. These may include: ??? Getting regular exercise. Ask your health care provider to suggest some exercises that are safefor you. ??? Eating a heart-healthy diet. This includes plenty of fresh fruits and vegetables, whole grains,low-fat (lean) protein, and low-fat dairy products. A dietitian can help you find healthy eating options. ??? Maintaining a healthy weight. ??? Managing any other health conditions you may have, such as high blood pressure (hypertension) or diabetes. ??? Reducing stress, such as with yoga or relaxation techniques. General instructions ??? Pay attention to any changes in your symptoms. ??? It is up to you to get the results of any tests that were done. Ask your health care provider, or the department that is doing the tests, when your results will be ready. ??? Keep all follow-up visits as told by your health care provider. This is important. ??? You may be asked to go for further testing if your chest pain does not go away. Contact a health care provider if: ??? Your chest pain does not go away. ??? You feel depressed. ??? You have a fever. ??? You notice changes in your symptoms or develop new symptoms. Get help right away if: ??? Your chest pain gets worse. ??? You have a cough that gets worse, or you cough up blood. ??? You have severe pain in your abdomen. ??? You faint. ??? You have sudden, unexplained chest discomfort. ??? You have sudden, unexplained discomfort in your arms, back, neck, or jaw. ??? You have shortness of breath at any time. ??? You suddenly start to sweat, or your skin gets clammy. ??? You feel nausea or you vomit. ??? You suddenly feel lightheaded or dizzy. ??? You have severe weakness, or unexplained weakness or fatigue. ??? Your heart begins to beat quickly, or it feels like it is skipping beats. These symptoms may represent a serious problem that is an emergency. Do not wait to see if the symptoms will go away. Get medical help right away. Call your local emergency services (911 in the [place] Do not drive yourself to the hospital. Summary ??? Chest pain can be caused by a condition that is serious and requires urgent treatment. It may also be caused by something that is not life-threatening. ??? Your health care provider may do lab tests and other studies to find the cause of your pain. ??? Follow your health care provider's instructions on taking medicines, making lifestyle changes, and getting emergency treatment if symptoms become worse. ??? Keep all follow-up visits as told by your health care provider. This includes visits for any further testing if your chest pain does not go away. This information is not intended to replace advice given to you by your health care provider. Make sure you discuss any questions you have with your health care provider. Document Revised: 12/20/2021 Document Reviewed: 12/20/2021 [employer] Patient Education ?? 2021 [employer]. Follow Up Care 11/06/2022 11:46:42 With:primary care physician Address: When:3 to 5 days Comments:and Dr Brasher as soon as possible Physician Emergency department Note * Claudia Bejarano MD: PERFORM, MODIFY Event Display: ED Note Physician Authored Date: [id number] JOSE JUAN LUNDY :1985 Age:37 years Sex:Female Visit Date:11/06/2022 Basic Information Time Seen: Claudia Bejarano MD / 11/06/2022 11:52 Chief Complaint Patient reports unrelieved burning chest pain that started yesterday. History Of Present Illness: This patient is a 37-year-old female with a history of cardiac arrest in October 2021 due to vasospasm??resulted in placement of an ICD who presents today for evaluation of??chest discomfort. ??The patient states she noticed a little bit of chest discomfort last night which worsened today and woke her from her sleep. ??She describes it as being a heartburn type of feeling??which feels similar to??the sensation she was having just prior to her cardiac arrest.?? The patient states she is chronically short of breath. ??She does continue??to smoke.?? There is a family history of cardiac disease in her aunt.?? The patient states she has not had any fevers or chills. ??No vomiting or diarrhea. ??No lower extremity swelling.?? She states the pain is improved with??GI cocktail. Review of Systems: CONSTITUTIONAL:??No fevers or chills. EYES:??No change in vision. ENT:??No sore throat. ??No headache. ??No neck pain. CARDIOVASCULAR:??+chest pain, no palpitations or passing out episodes. RESPIRATORY:??No cough, + chronic shortness of breath no hemoptysis. GI:??No abdominal pain. No nausea, vomiting or diarrhea. :??No change in urination. SKIN:??No rash. NEUROLOGIC:??No numbness or weakness. MUSCULOSKELETAL:??No swelling or pain. PSYCHIATRIC:??No depression. LYMPH:??No swelling. Review of systems otherwise as stated in HPI Physical Exam Vitals & Measurements T:??36.5?C ??(Temporal Artery)?? HR:??66??(Peripheral)?? HR:??73??(Monitored)?? RR:??14?? BP:??111/74?? SpO2:??97%?? HT:??163.000??cm?? WT:??71.21??kg??(Estimated)?? Pain Score:??7?? O2 Therapy:??Room air?? General: ??AAOx3. ??GCS15. ??No acute distress, answering questions appropriately. Head: ??Atraumatic; Normocephalic Eye: ??PERRLA; EOMI; no scleral icterus / pallor ENT: moist mucous membranes; no epistaxis. No stridor. Neck: ??Active ROM intact; Trachea Midline. ??No JVD. ??No meningismus appreciated. Skin: Warm, dry Chest: ??Equal BS bilaterally. ??Clear to auscultation bilaterally. Heart: RRR; no murmur, rub, or gallop Abdomen: ??Soft, non-tender, non-distended, no guarding, rebound, or rigidity. No Hepatosplenomegaly Musculoskeletal: ??ROM intact of all extremities/joints without discomfort. ??Sensation grossly intact throughout. ??No obvious deformity. ??Strength Intact 5/5 throughout. ?? Neuro: Alert and oriented. Answering questions appropriately with clear speech. Motor and sensory grossly normal in all extremities.?? Medical Decision Making: The patient's records it appears that she had a V. fib arrest in October 2021 was felt to be due toto coronary vasospasm for which she had an ICD placement.?? During that episode the patient did have a cardiac catheterization which showed no ischemic etiology for her arrest.?? According to the records the day of her cardiac arrest she had woken from sleep with severe heartburn and palpitations and then was found unresponsive by her boyfriend who started CPR.?? Patient received CPR and epinephrine and had return of spontaneous circulation.?? She had a history of hypertension, anxiety, depression, tobacco use and recent COVID infection the month before.?? At the time she had been on several psychiatric medications however her QTC at that point was normal.?? Review of the catheterization note, there was severe spasm of the RFA on initial angiography and then on the actual catheterization there was mild luminal irregularities of the left coronary with progressive diffuse spasm of LM, LADand left circumflex. 2:50 PM???I spoke with a??cardiology steamer tender Jose Rafael. ??Her recommendation is that the patient get an echocardiogram, observation overnight with repeat troponins. 3 PM???I went to speak with the patient about plan for echo, repeat troponin, observation overnighton telemetry however patient states that she needs to leave AGAINST MEDICAL ADVICE.?? 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 I explained to her that my concern is that I cannot rule out cardiac disease which is 1 troponin and that she is at significant risk because of her history.?? However, patient needsto be discharged home due to family obligations and will not stay despite my encouragement. 3:21 PM???the patient is staying for the echo but will not be staying for the read, she allowed us to draw the repeat troponin but will not be staying for the result.?? I did speak with her enterprise project manager Dr. Brasher??who is comfortable with the plan for the patient to be discharged. ?? Did notify the patient's results after she signed out AMA that her echo and repeat troponin werenormal. Procedure No Qualifying Data Assessment/Plan 1.??Chest pain??R07.9 Orders: nitroglycerin 0.4 mg sublingual tablet, 0.4 mg = 1 tab, SL, Tab-SL, every 5 min for 3 doses, PRN chest pain, First Dose: 11/06/22 12:20:00 EST, Stop Date: Limited # of times, Physician Stop Cardiac Monitoring, 11/06/22 12:15:00 EST Decision to Admit, 11/06/22 14:41:00 EST, Medical Unit SARS-CoV-2 (COVID-19) PCR (GeneXpert), Nasal Swab, Stat Collect, 11/06/22 14:34:00 EST, Once, Nursecollect, Print Label, No, No, No, No, No, Not Troponin-I, Blood, Timed Study, 11/06/22 15:15:00 EST, Once, Nurse collect Patient Education Nonspecific Chest Pain, Adult Follow Up With When Contact Information primary care physician Within 3 to 5 days Additional Instructions: and Dr Brasher as soon as possible Medication Reconciliation Unchanged Al hydroxide/Mg hydroxide/simethicone (aluminum hydroxide/magnesium hydroxide/simethicone 200 mg-200 mg-20 mg/5 mL oral suspension)COMBINE 10ML WITH LIDOCAINE ORALLY THREE TIMES A DAY. ?? amLODIPine (amLODIPine 2.5 mg oral tablet)TAKE ONE TABLET BY MOUTH EVERY DAY. ?? clonazePAM (clonazePAM 1 mg oral tablet)TAKE ONE TABLET BY MOUTH THREE TIMES A DAY. ?? famotidine (famotidine 40 mg oral tablet)TAKE ONE TABLET BY MOUTH TWICE A DAY. Problem List/Past Medical History Ongoing No qualifying data Historical No qualifying data Medication Administration Given aspirin, 324 mg, Chewed nitroglycerin 0.4 mg sublingual tablet, 0.4 mg, SL Allergies SEROquel morphine Social History Electronic Cigarette/Vaping Electronic Cigarette Use: Never. Tobacco Current everyday tobacco user Tobacco Use:. Diagnostic Results XR Chest 2 Views 11/06/2022 12:45 EST XR Chest 2 Views ?? 11/06/22 12:43:20 EXAM DESCRIPTION: XR Chest 2 Views ?? 11/06/2022 ?? INDICATION: CHEST PAIN ?? COMPARISON: None ?? FINDINGS: Clear lungs with no focal infiltrate or pulmonary edema. Normal cardiomediastinal contour. Normal pleural margins with no pleural effusion or pneumothorax. Electrode overlying the anterior mid chest with electronic appliance in the left lateral chest wall. ?? IMPRESSION: No active chest disease. ? JOB #: [id number] Electronically Signed By: ?? Signed By: Jonathan Barrow MD Lab Results CBC and Differential?? LATEST RESULTS?? WBC?? 11/06/22 12:17?? 10.2?? RBC?? 11/06/22 12:17?? 4.53?? Hgb?? 11/06/22 12:17?? 13.6?? Hct?? 11/06/22 12:17?? 40.9?? MCV?? 11/06/22 12:17?? 90.3?? MCH?? 11/06/22 12:17?? 30.0?? MCHC?? 11/06/22 12:17?? 33.3?? RDW-CV?? 11/06/22 12:17?? 13.8?? Platelets?? 11/06/22 12:17?? 315?? MPV?? 11/06/22 12:17?? 10.5 ??High?? Neutro Auto?? 11/06/22 12:17?? 59.4?? Lymph Auto?? 11/06/22 12:17?? 28.0?? Holmes Auto?? 11/06/22 12:17?? 6.6?? Eos, Auto?? 11/06/22 12:17?? 5.00 ??High?? Basophil Auto?? 11/06/22 12:17?? 0.6?? Imm Gran Auto?? 11/06/22 12:17?? 0.4?? NRBC Auto?? 11/06/22 12:17?? 0?? Neutro Absolute?? 11/06/22 12:17?? 6.1?? Lymph Absolute?? 11/06/22 12:17?? 2.9?? Holmes Absolute?? 11/06/22 12:17?? 0.7 ??High?? Eos Absolute?? 11/06/22 12:17?? 0.5 ??High?? Baso Absolute?? 11/06/22 12:17?? 0.1?? Imm Gran Absolute?? 11/06/22 12:17?? 0.04?? NRBC Absolute?? 11/06/22 12:17?? 0? Coagulation?? LATEST RESULTS?? Prothrombin Time?? 11/06/22 12:17?? 10.1?? INR?? 11/06/22 12:17?? 1.0? Routine Chemistry?? LATEST RESULTS?? Sodium Level?? 11/06/22 12:17?? 134?? Potassium Level?? 11/06/22 12:17?? 3.9?? Chloride Level?? 11/06/22 12:17?? 98?? CO2?? 11/06/22 12:17?? 27?? Alk Phos?? 11/06/22 12:17?? 59?? AST?? 11/06/22 12:17?? 15?? ALT?? 11/06/22 12:17?? 21?? BUN?? 11/06/22 12:17?? 15?? Glucose Level?? 11/06/22 12:17?? 102?? Creatinine Level?? 11/06/22 12:17?? 0.90?? BUN/Creat Ratio?? 11/06/22 12:17?? 16.7?? eGFR AA?? 11/06/22 12:17?? 84?? eGFR Non-AA?? 11/06/22 12:17?? 84?? Calcium Level?? 11/06/22 12:17?? 9.3?? Protein Total?? 11/06/22 12:17?? 6.9?? Albumin Level?? 11/06/22 12:17?? 4.0?? Globulin?? 11/06/22 12:17?? 2.9?? A/G Ratio?? 11/06/22 12:17?? 1.4?? Bilirubin Total?? 11/06/22 12:17?? 0.2?? Anion Gap?? 11/06/22 12:17?? 9.0?? Osmolality?? 11/06/22 12:17?? 269 ??Low? Cardiac Isoenzymes?? LATEST RESULTS?? Troponin-I?? 11/06/22 12:17?? 0.01? Testing?? LATEST RESULTS?? hCG Qual Serum?? 11/06/22 12:17?? Negative? Urine Toxicology?? LATEST RESULTS?? U Amph Scrn?? 11/06/22 14:26?? Negative?? U Jovita Scrn?? 11/06/22 14:26?? Negative?? U Benzodia Scrn?? 11/06/22 14:26?? Negative?? U Buprenorph Scr?? 11/06/22 14:26?? Negative?? U Cocaine Scrn?? 11/06/22 14:26?? Negative?? U TCA Scr?? 11/06/22 14:26?? Negative?? U THC Scr?? 11/06/22 14:26?? Negative?? U mAMP Scr?? 11/06/22 14:26?? Negative?? U Methadone Scr?? 11/06/22 14:26?? Negative?? U Opiate Scrn?? 11/06/22 14:26?? Negative?? U Oxy Scrn?? 11/06/22 14:26?? Negative?? U PCP Scrn?? 11/06/22 14:26?? Negative?? U PPX Scr?? 11/06/22 14:26?? Negative? Electronically Signed on 11/07/22 08:40 AM Claudia Bejarano MD XR Chest 2 Views * Jonathan Emig, MD: VERIFY, VERIFY Event Display: Report EXAM DESCRIPTION: XR Chest 2 Views 11/06/2022 INDICATION: CHEST PAIN COMPARISON: None FINDINGS: Clear lungs with no focal infiltrate or pulmonary edema. Normal cardiomediastinal contour. Normal pleural margins with no pleural effusion or pneumothorax. Electrode overlying the anterior mid chest with electronic appliance in the left lateral chest wall. IMPRESSION: No active chest disease. JOB #: [id number] Final Signed by: Jonathan Barrow MD Signed (Electronic Signature): 11/06/2022 12:43 pm
--- OUTSIDE RECORDS SUMMARY | 2024-09-20 11:00 | XMS_ITS ---
Author Organization [facility] Address [address] [place] [id number] Care Team Providers Care Political Science Chair Name Role Phone Kenia Lawrence Primary Care Provider [phone] REASON FOR VISIT concern Medications Medication SIG (Take, Route, Fr equency, Duration) Notes Start Date End Date Status Miconazole 7 2 % 1 applicatorful at b edtime Vaginal Once a day for 7 days 09/09/2024 Ac tive Nicotine 21 MG/24HR 1 patch to skin Bello sdermal Once a day for 30 days 09/09/2024 Active Social History Sex Assigned At : Social History Observation Description Sex Assigned At Female Encounters Encounter Location Date Provider Diagnosis [address] [id number] 09/09/2024 Kenia Lawrence Plan Of Treatment Medication Medication Name Sig Start Date Stop Date Notes Miconazole 7 2 % 1 applicatorful at b edtime Vaginal Once a day for 7 days 09/09/2024 Nicotine 21 MG/24HR 1 patch to skin Bello sdermal Once a day for 30 days 09/09/2024 Progress Notes * Aniya LUQUE ADOB: [birth year] (39 yo F)Acc No.[id number]:09/09/2024 Patient:?Aniya LUQUE :1985???Age:39 Y???Sex:Female Address:[address] [address] * Refills? Start Miconazole 7 Cream, 2 %, Vaginal, 7, 1 applicatorful at bedtime, Once a day, 7 days Start Nicotine Patch 24 Hour, 21 MG/24HR, Transdermal, 30, 1 patch to skin, Once a day, 30 days, Refills=1 * true * Date:? Generated for Isamar ding/Wallace/Saeeditting on:?09/20/2024 11:00 AM EST
--- OUTSIDE RECORDS SUMMARY | 2024-09-20 11:00 | XMS_ITS ---
Author Organization [facility] Address [address], [place] [id number] Care Team Providers Care Truck Bracer Name Role Phone Kenia Lawrence Primary Care Provider [phone] REASON FOR VISIT Iron infusions Social History Sex Assigned At : Social History Observation Description Sex Assigned At Female Encounters Encounter Location Date Provider Diagnosis [address] [id number] 09/06/2024 Kenia Lawrence Plan Of Treatment No Information Progress Notes * Aniya LUQUE ADOB: [birth year] (39 yo F)Acc No.[id number]:09/06/2024 Patient:?Aniya LUQUE :1985???Age:39 Y???Sex:Female Address: [address] [address] * true * Date:? Generated for Fernandai toña/Wallace/eTransmitting on:?09/20/2024 11:00 AM EST
--- OUTSIDE RECORDS SUMMARY | 2024-09-20 11:01 | XMS_ITS | Encounter Summary ---
Author Organization [facility] Address [facility] [place] [address] Care Team Providers Care Director Of Architecture Name Role Phone MelindaKenia ford ADRIAN Primary Care Provider +1- [phone] Encounter Details Date Type Department Care Team (Late st Contact Info) Description 09/09/2024 Orders Only Obstetrics [place] [address] Floyd Wang MD [facility] OBSTET[place] [address] Social History Tobacco Use Types Packs/Day Years Used Date Smoking Tobacco: Every Day Cigarettes 1 15 Smokeless Tobacco: Never Comments:Smokess 0.5 - 1 pac ks of cigarettes daily x 13 - 14 years. Alcohol Use Standard Drinks/Week Comments Not Currently 0 (1 standard drink = 0.6 oz pur e alcohol) [facility] Utilities Answer Date Recorded In the past 12 months has [employer], gas, oil, or water [employer] threatened to shut off services in your home? No 03/02/2024 Humiliation, Afraid, Rape, and Kick questionnair e Answer Date Recorded Within the last year, have y ou been afraid of your partner or ex-partner? Patient declined 03/02/2024 Within the last year, have y ou been humiliated or emotionally abused in other ways by your partner or ex-partner? Patient declined 03/02/2024 Within the last year, have y ou been kicked, hit, slapped, or otherwise physically hurt by your partner or ex-partner? No 03/02/2024 Within the last year, have y ou been raped or forced to have any kind of sexual activity by your partner or ex-partner? No 03/02/2024 Overall Financial Resource Strain (CARDIA) Answe r Date Recorded How hard is it for you to pa y for the very basics like food, housing, medical care, and heating? Not very hard 03/02/2024 Hunger Vital Sign Answer Date Recorded Within the past 12 months, y ou worried that your food would run out before you got the money to buy more. Never true 03/02/20 24 Within the past 12 months, t he food you bought just didn't last and you didn't have money to get more. Never true 03/02/2024 PRAPARE - Transportation Answer Date Re corded In the past 12 months, has l ack of transportation kept you from medical appointments or from getting medications? No 02/17 In the past 12 months, has l ack of transportation kept you from meetings, work, or from getting things needed for daily living? No 03/02/2024 Housing Stability Vital Sign Answer Logan e Recorded In the last 12 months, was t here a time when you were not able to pay the mortgage or rent on time? No 03/02/2024 In the last 12 months, how many places have you lived? 1 03/02/2024 In the last 12 months, was t here a time when you did not have a steady place to sleep or slept in a fpc (including now)? No 03/02/2024 DH IPV Inpatient Questions Answer Date Recorded Does Anyone Try to Keep You From Having Contact with Others or Doing Things Outside Your Home? no 08/15/2024 Feels Threatened by Someone no 07/21 Feels Unsafe at Home or Work/School no 08/15/2024 Physical Signs of Abuse Present no 08/15/2024 Estimated Date of Delivery Comme nts Yes 10/16/2024 Based on Other B asis Sex and Gender Information Value Date Recorded Sex Assigned at Female 03/02/2024 7:39 AM EDT Gender Identity Female 03/02/2024 7:39 AM EDT Sexual Orientation Bisexual 03/02/2024 7: 39 AM EDT documented as of this encounter Plan of Treatment Upcoming Encounters Date Type Department Care Team (Late st Contact Info) Description 09/21/2024 8:15 AM EST Routine Obstetrics [place] [address] Emili Cabrera MD [facility] [place] [address] 09/26/2024 6:00 PM EST Appointment [facility] [place] [phone] 10/16/2024 [place] [phone] Dudley Aguilar MD [facility] DR OBSTETRICS [place] [address] 11/08/2024 10:00 AM EST Hospital Encounter [place] [phone] Arrived documented as of this encounter Visit Diagnoses Not on filedocumented in this encounter Care Teams Director Of Architecture Relationship Specialty Start Date End Date Kenia Lawrence APRN [address] [place] [address] PCP - General Family Medicine 09/29/23 documented as of this encounter
--- OUTSIDE RECORDS SUMMARY | 2024-09-20 11:01 | XMS_ITS | Encounter Summary ---
Author Organization [facility] Address [facility] [place] [address] Care Team Providers Care Groundhand Name Role Phone MelindaKenia ford ADRIAN Primary Care Provider +1- [phone] Encounter Details Date Type Department Care Team (Late st Contact Info) Description 08/15/2024 Orders Only Obstetrics [place] [address] Jane Bejarano MD [facility] OBSTETRICS & [place] [address] Social History Tobacco Use Types Packs/Day Years Used Date Smoking Tobacco: Every Day Cigarettes 1 15 Smokeless Tobacco: Never Comments:Smokess 0.5 - 1 pac ks of cigarettes daily x 13 - 14 years. Alcohol Use Standard Drinks/Week Comments Not Currently 0 (1 standard drink = 0.6 oz pur e alcohol) [facility] Utilities Answer Date Recorded In the past 12 months has [employer], gas, oil, or water [employer] threatened to shut off services in your [...] place to sleep or slept in a mcfp (including now)? No 03/02/2024 DH IPV Inpatient [...] AM EST Routine Obstetrics [place] [address] Emili Cabrera MD [facility] [place]ERNAL [place] [address] 09/26/2024 6:[address] [facility] [place] [place] [phone] 10/16/2024 Hospital [place] [phone] Dudley Aguilar MD [facility] DR OBSTETRICS [place] [address] 11/08/2024 10:00 AM EST Hospital Encounter [place] [phone] Arrived documented as of this encounter Visit Diagnoses Not on filedocumented in this encounter Care Teams Groundhand Relationship Specialty Start Date End Date Kenia Lawrence APRN [address] [place] [address] PCP - General Family Medicine 09/29/23 documented as of this encounter
--- OUTSIDE RECORDS SUMMARY | 2024-09-20 11:01 | XMS_ITS | Encounter Summary ---
Author Organization [facility] Address [facility] [place] [address] Care Team Providers Care Management And Budget Analyst Name Role Phone MelindaKenia ford Marilin CAMPBELL Primary Care Provider +1- [phone] Encounter Details Date Type Department Care Team (Late st Contact Info) Description 08/15/2024 Telephone Obstetrics [place] [address] Renetta Mariee MD [facility] OBSTETRICS & [place] [address] Social History Tobacco Use Types Packs/Day Years Used Date Smoking Tobacco: Every Day Cigarettes 1 15 Smokeless Tobacco: Never Comments:Smokess 0.5 - 1 pac ks of cigarettes daily x 13 - 14 years. Alcohol Use Standard Drinks/Week Comments Not Currently 0 (1 standard drink = 0.6 oz pur e alcohol) [facility] Utilities Answer Date Recorded In the past 12 months has [email or web address], gas, oil, or water [employer] threatened to shut off services in your [...] place to sleep or slept in a [place] (including now)? No 03/02/2024 DH IPV Inpatient [...] AM EDT documented as of this encounter Miscellaneous Notes * Telephone Encounter - Renetta Mariee MD - 08/15/2024 8:36 AM EDT Telephone Note: ID: Aniya Luque is a 39 y.o. female at 31w1d With a history of cardiac arrest secondary to vasospasm in 10/2021. LVEF 65% 04/2024. Has a sub-Q ICD. Recently increased isordil per cardiology Reports lots of low back pain, pain in vagina. She has been puking since 0200 and having diarrhea. She has some SOB and mild chest pain. Decreased movement. Stomach is tightening frequently, but no painful contractions. No LOF. Recommended she come to for evaluation Renetta Mariee MD, PGY-4 Obstetrics and Gynecology 08/15/2024 documented in this encounter Plan of Treatment Upcoming Encounters Date Type Department Care Team (Late st Contact Info) Description 09/21/2024 8:15 AM EST Routine Obstetrics [place] [phone] Emili Cabrera MD [facility] MATERNAL [place] [address] 09/26/2024 6:00 PM EST Appointment [facility] [place] [phone] 10/16/2024 Hospital [place] [phone] Dudley Aguilar MD [facility] OBSTETRICS [place] [address] 11/08/2024 10:00 AM EST Hospital Encounter Non-Invasive [place] [phone] Arrived documented as of this encounter Visit Diagnoses Not on filedocumented in this encounter Care Teams Management And Budget Analyst Relationship Specialty Start Date End Date Kenia Lawrence APRN [address] [place] [address] PCP - General Family Medicine 09/29/23 documented as of this encounter
--- OUTSIDE RECORDS SUMMARY | 2024-09-20 11:01 | XMS_ITS | Encounter Summary ---
Author Organization [facility] [place] [address] Care Team Providers Care Asbestos Removal Worker Name Role Phone Melinda, Kenia Marilin CAMPBELL Primary Care Provider +1- [phone] Encounter Details Date Type Department Care Team (Late st Contact Info) Description 08/27/2024 Telephone Cardiology at [address] [phone] Tiffany Moon RN Social History Tobacco Use Types Packs/Day Years Used Date Smoking Tobacco: Every Day Cigarettes 1 15 Smokeless Tobacco: Never Comments:Smokess 0.5 - 1 pac ks of cigarettes daily x 13 - 14 years. Alcohol Use Standard Drinks/Week Comments Not Currently 0 (1 standard drink = 0.6 oz pur e alcohol) [facility] Utilities Answer Date Recorded In the past 12 months has [facility] [employer], gas, oil, or water [employer] threatened to shut off services in your [...] place to sleep or slept in a skilled nursing (including now)? No 03/02/2024 DH IPV Inpatient [...] encounter Miscellaneous Notes * Telephone Encounter - Tiffany Moon RN - 08/27/2024 11:17 AM EST RTC to Mrs Luque to confirm her labs have been received and are in her chart, and that her doctor will be back in clinic, on 09/01/2024. Left VM for Mrs Luque. Tiffany Moon (Jodie), RN, BSN [facility] documented in this encounter Plan of Treatment Upcoming Encounters Date Type Department Care Team (Late st Contact Info) Description 09/21/2024 8:15 AM EST Routine Obstetrics [place] [address] Emili Cabrera MD [facility] MATERNAL [place] [address] 09/26/2024 6:00 PM EST Appointment [facility] [place] [address] 10/16/2024 [place] [address] Dudley Aguilar MD [facility] DR OBSTETRICS [place] [address] 11/08/2024 10:00 AM EST Hospital Encounter Non-[place] [address] Arrived documented as of this encounter Visit Diagnoses Not on filedocumented in this encounter Care Teams Asbestos Removal Worker Relationship Specialty Start Date End Date Kenia Lawrence APRN [address] [place] [address] PCP - General Family Medicine 09/29/23 documented as of this encounter
--- OUTSIDE RECORDS SUMMARY | 2024-09-20 11:01 | XMS_ITS | Encounter Summary ---
Author Organization [facility] [place] [address] Care Team Providers Care Automobile Upholstery Trim Installer Name Role Phone Melinda Kenia Marilin CAMPBELL Primary Care Provider +1- [phone] Encounter Details Date Type Department Care Team (Latest Contact Info) Description 08/23/2024 Travel Social History Tobacco Use Types Packs/Day Years Used Date Smoking Tobacco: Every Day Cigarettes 1 15 Smokeless Tobacco: Never Comments:Smokess 0.5 - 1 pac ks of cigarettes daily x 13 - 14 years. Alcohol Use Standard Drinks/Week Comments Not Currently 0 (1 standard drink = 0.6 oz pur e alcohol) [facility] Utilities Answer Date Recorded In the past 12 months has [employer], gas, oil, or water [employer] threatened to shut off services in your [...] place to sleep or slept in a fdc (including now)? No 03/02/2024 IPV Inpatient Questions Answer Date Recorded Does [...] AM EST Routine Obstetrics [place] [address] Emili Cabrera MD [facility] MATERNAL [place] [address] 09/26/2024 6:00 PM EST Appointment [facility] Birthing [place] [phone] 10/16/2024 [place] [address] Dudley Aguilar MD [facility] OBSTETRICS [place] [address] 11/08/2024 10:00 AM EST Hospital Encounter Non-Invasive Cardiology Lab [place] [phone] Arrived documented as of this encounter Visit Diagnoses Not on filedocumented in this encounter Care Teams Automobile Upholstery Trim Installer Relationship Specialty Start Date End Date Kenia Lawrence APRN [address] [place] [address] PCP - General Family Medicine 09/29/23 documented as of this encounter
--- OUTSIDE RECORDS SUMMARY | 2024-09-20 11:01 | XMS_ITS | Encounter Summary ---
Author Organization [facility] Address [facility] [place] [address] Care Team Providers Care Commercial Pilot Name Role Phone MelindaKenia ford ADRIAN Primary Care Provider +1- [phone] Encounter Details Date Type Department Care Team (Late st Contact Info) Description 08/13/2024 2:20 PM EDT TH Visit (TeleHealth) Cardiology at [address] [address] Ej Zurita MD [facility] [place] [address] History of cardiac arrest; Dyspnea, unspecified type Social History Tobacco Use Types Packs/Day Years Used Date Smoking Tobacco: Every Day Cigarettes 1 15 Smokeless Tobacco: Never Comments:Smokess 0.5 - 1 pac ks of cigarettes daily x 13 - 14 years. Alcohol Use Standard Drinks/Week Comments Not Currently 0 (1 standard drink = 0.6 oz pur e alcohol) [facility] Utilities Answer Date Recorded In the past 12 months has e electric, gas, oil, or water company threatened to shut off services in your [...] money to buy more. Never true 03/02/20 Within the past 12 months, t he [...] place to sleep or slept in a longterm (including now)? No 03/02/2024 DH IPV Inpatient Questions Answer Date Recorded Does Anyone Try to Keep You From Having Contact with Others or Doing Things Outside Your Home? no 05/27/2024 Feels Threatened by Someone no 05/2024 Feels Unsafe at Home or Work/School no 05/27/2024 Physical Signs of Abuse Present no 05/27/2024 Estimated Date of Delivery Comme nts Yes 10/16/2024 Based on Other B asis Sex and Gender Information Value Date Recorded Sex Assigned at Female 03/02/2024 7:39 AM EDT Gender Identity Female 03/02/2024 7:39 AM EDT Sexual Orientation Bisexual 03/02/2024 7: 39 AM EDT documented as of this encounter Progress Notes * Ej Zurita MD - 08/13/2024 2:20 PM EDT Images from the original note were not included. [facility] [place] [address] [place] [address] CARDIOLOGY OUTPATIENT PROGRESS NOTE PRIMARY CARE PROVIDER: Kenia Lawrence APRN REFERRING PROVIDER: Kenia Lawrence PROBLEM LIST: Subjective: Patient ID: Aniya Luque is a 39 y.o. female here for counseling regarding maternal cardiovascular risk in . HPI: Summary: Aniya has a history notable for a cardiac arrest secondary to vasospasm in October 2021.She has done well on amlodipine daily and with nitrates PRN. There did not appear to have been myocardial damage nor cardiomyopathy after her arrest. LVEF 65% without RWMA 04/2024. She has a sub-Q ICDwhich has not fired and she has not had any ventricular arrhythmia detected. Estimated Date of Delivery: 10/16/24 Currently almost 31 weeks . Last visit: I have increased her long acting vasodilators (added isordil) as below for chest pain. Added sucralfate for heart burn. Doing well from a CV standpoint. No evidence of heart failure or arrhythmia or ischemia. Having heart burn and nonanginal chest pain. Feeling depression and anxiety. Today: Having a lot of symptoms. Dypsnea, abdominal pain, chest pain. Sucralfate did not help a lot. Isordil has not been picked up. + heart burn, mid chest, up and around the shoulders, random chest discomfort, not associated with exertion, lasting couple minutes, sometimes off and on throughout the day and using about 2SLN a day. Hasn't tried isordil because it still isn't available. Calling [facility] today to see what is upwith that. + 7/10 abdominal pain/stiffness +joint pain, difficulty ambulating due to pelvic pain Interrogate device: T[employer]uru no shocks on interrogation via EP service in February, her device can not detect episodes of subclinical arrthymia, just those meeting tachycardia therapy thresholds. TTE 04/2024: -Left ventricular systolic function is normal. Left ventricular ejection fraction is estimated visually at 65%. There are no segmental wall motion abnormalities. -The right ventricle is of normal size. Right ventricular systolic function is normal. -Normal valves. -Compared with the previous echo performed on 03/14/22, there is no significant change. Exercise: Goes on walks with her children isosorbide dinitrate (Isordil) 5 mg tablet sucralfate (Carafate) 100 mg/mL Suspension terconazole (TERAZOL 7) 0.4 % Cream diazePAM (Valium) 2 mg tablet amLODIPine (Norvasc) 10 mg tablet meclizine (Antivert) 25 mg chewable tablet Antacid-Antigas 200-200-20 mg/5 mL Suspension famotidine (Pepcid) 40 mg Tablet nitroGLYcerin (Nitrostat) 0.4 mg Tablet, Sublingual acetaminophen (Tylenol) 325 mg Tablet polyethylene glycoL (Miralax) 17 gram Powder in Packet fluticasone propionate (Flonase) 50 mcg/actuation [place], Suspension cetirizine (ZyrTEC) 10 mg Tablet fluticasone propionate (Flovent HFA) 110 mcg/actuation HFA Aerosol Inhaler ipratropium-albuteroL (Duoneb) 0.5 mg-3 mg(2.5 mg base)/3 mL Solution for Nebulization albuterol 90 mcg/actuation HFA Aerosol Inhaler calcium carbonate (TUMS) 200 mg calcium (500 mg) Tablet, Chewable Details of her initial hospitalization and course: Hospitalized 11/04-. She had a witnessed VF cardiac arrest with bystander CPR ( her amanda Root) and ROSC after extensive resuscitation. Targeted temperature management was pursued. Troponin-T was trended, stormy from 0.02 on presentation to 0.24. Around 3pm on day of admission patient again had witnessed cardiac arrest. Went into junctionalrhythm with ST elevations on telemetry. Rhythm progressed to pulseless Vtach and then Vfib. She wasshocked x 3, given 300 mg amio bolus and started on an amio gtt. Post resuscitation ECG shows sinustachycardia with QTC of 484 and no acute ischemic changes. No significant changes were found compared to her prior ECG. There was no evidence of Brugada or accessory pathway. The patient underwent CTPE which was negative for PE. Her head CT was also negative for bleed. Emergent cath without obstructive left sided CAD. VF occurred again after injection of her left main coronary artery and her arrest was thus presumed due to severe coronary vasospasm. Needed IABP, nicardipine, amiodarone, and lid ocaine. The RCA was not injected due to lack of plaque and profound vasospasm on the left sided injections. Subsequent CTA confirms there is no RCA disease. Social History: -Lives with Todd-2 July; in June -Partner recently incarcerated Objective: PHYSICAL EXAM: No data found. Telehealth Labs: Lab Results Component Value Date WBC 11.33 (H) 08/09/2024 WBC 10.2 (H) 04/23/2024 WBC 9.3 10/20/2022 WBC 11.0 (H) 10/05/2022 HGB 9.5 (L) 08/09/2024 HGB 12.0 04/23/2024 HGB 14.0 10/20/2022 HGB 14.0 10/05/2022 PLATELET 324 08/09/2024 PLATELET 264 04/23/2024 PLATELET 214 10/20/2022 PLATELET 247 10/05/2022 NA 138 04/23/2024 NA 136 10/20/2022 NA 141 10/05/2022 K 3.6 04/23/2024 K 4.1 10/20/2022 K 4.1 10/05/2022 CL 99 04/23/2024 CL 104 10/20/2022 CL 105 10/05/2022 CO2 23 04/23/2024 CO2 22 10/20/2022 CO2 25 10/05/2022 BUN 9 04/23/2024 BUN 13 10/20/2022 BUN 12 10/05/2022 CREATININE 0.94 04/23/2024 CREATININE 1.09 10/20/2022 CREATININE 0.86 10/05/2022 TRIG 130 11/04/2021 Assessment: Aniya Luque is a 39 y.o. patient presenting for assessment. In 2021: Cardiac catheterization and coronary CTA did not show atherosclerotic cardiovascular disease. In 2022. Her ventricular systolic function is normal. She does not have any valve disease. Since her initial event: She has not had any interval ventricular arrhythmias. 2023: TTE normal 04/2024. This marked by chest pain (much of it noncardiac, but some nitrate responsive), smoking, abdominal pain, pelvic pain, anxiety, poor po intake. Plan: Reporting new dyspnea. Ordered BNP, amylase, lipase for local labs to evaluate dypsnea and abdominal pain respectively. Continue amlodipine 10 mg daily, sucralfate 1mg TID for heart burn Calling [facility] re: isordil. Unclear why they haven't filled it. Happy to use imdur 30mg daily if that is easier. SLN PRN No shocks on ICD. We should continue interrogating her device throughout her . Delivery timing to be determined by her obstetrics team, but feeling really overwhelmed/tearful about the current state of how she feels and I anticipate her symptoms may warrant induction of labor earlier than 40 weeks. OB planning 37 or sooner per latest notes. Delivery location to be [facility] [place] with me in a month No follow-ups on file. Thank you for the opportunity to participate in this patient's cardiovascular care. All questions were answered and I look forward to the next visit. Ej Zurita MD I spent at least 30minutes of time on this patient encounter on the date of service performing activities related to: ?preparing to see the patient (eg, review of tests) ?obtaining and/or reviewing separately obtained history ?performing a medically appropriate examination and/or evaluation ?counseling and educating the patient/family/caregiver ?ordering medications, tests, or procedures ?referring and communicating with other health career development engineer (when not separately reported) ?documenting clinical information in the electronic or other health record ?independently interpreting results (not separately reported) and communicating results to the patient/family/caregiver ?care coordination (not separately reported) documented in this encounter Plan of Treatment Upcoming Encounters Date Type Department Care Team (Late st Contact Info) Description 09/21/2024 8:15 AM EST Routine [place]st[place]s [place] [phone] Emili Cabrera MD [facility] [place] [address] 09/26/2024 6:00 PM EST Appointment [facility] [place] [address] 10/16/2024 [place] [address] Dudley Aguilar MD [facility] OBSTETRICS [place] [address] 11/08/2024 10:00 AM EST Hospital Encounter [place] [address] Arrived Scheduled Orders Name Type Priority Associated Diagnoses Orde r Schedule pro-Brain Natriuretic Peptide Lab Routine Dyspnea, unspecified type Expected: 08/20/2024, Expires: 08/13/2025 Lipase Lab Routine History of cardiac arrest Expected: 08/13/2024, Expires: 02/12/2025 Amylase Lab Routine History of cardiac arrest Expected: 08/13/2024, Expires: 02/12/2025 documented as of this encounter Visit Diagnoses Diagnosis History of cardiac arrest Personal history of sudden cardiac arrest Dyspnea, unspecified type documented in this encounter Care Teams Commercial Pilot Relationship Specialty Start Date End Date Kenia Lawrence APRN [address] [place] [address] PCP - General Family Medicine 09/29/23 documented as of this encounter
--- OUTSIDE RECORDS SUMMARY | 2024-09-20 11:01 | XMS_ITS | Encounter Summary ---
Author Organization [facility] [address] Care Team Providers Care Shipping Supervisor Name Role Phone Melinda Kenia Marilin CAMPBELL Primary Care Provider +1- [phone] Encounter Details Date Type Department Care Team (Latest Contact Info) Description 08/31/2024 Travel Social History Tobacco Use Types Packs/Day Years Used Date Smoking Tobacco: Every Day Cigarettes 1 15 Smokeless Tobacco: Never Comments:Smokess 0.5 - 1 pac ks of cigarettes daily x 13 - 14 years. Alcohol Use Standard Drinks/Week Comments Not Currently 0 (1 standard drink = 0.6 oz pur e alcohol) [facility] Utilities Answer Date Recorded In the past 12 months has e [employer], gas, oil, or water [employer] threatened to shut off services in your [...] place to sleep or slept in a halfway (including now)? No 03/02/2024 IPV Inpatient Questions [...] AM EST Routine Obstetrics [place] [address] Emili Cabrera MD [facility] [place] [address] 09/26/2024 6:00 PM EST Appointment [facility] [place] [phone] 10/16/2024 [place] [address] Dudley Aguilar MD [facility] OBSTETRICS [place] [address] 11/08/2024 10:00 AM EST Hospital Encounter Non-Invasive Cardiology Lab [place] [phone] Arrived documented as of this encounter Visit Diagnoses Not on filedocumented in this encounter Care Teams Shipping Supervisor Relationship Specialty Start Date End Date Kenia Lawrence APRN [address] [place] [address] PCP - General Family Medicine 09/29/23 documented as of this encounter
--- OUTSIDE RECORDS SUMMARY | 2024-09-20 11:01 | XMS_ITS | Encounter Summary ---
Author Organization [facility] Address [facility] [place] [address] Care Team Providers Care Sap Basis Name Role Phone MelindaKenia ford ADRIAN Primary Care Provider +1- [phone] Encounter Details Date Type Department Care Team (Latest Contact Info) Description 08/31/2024 9:30 AM EST - 08/31/2024 11:59 PM [facility] Hospital [place] [address] Lexie Lizarraga MD [facility] MAT[facility]NAL [facility] [place] [address] Chronic hypertension in Discharge Disposition: Home Social History Tobacco Use Types Packs/Day Years Used Date Smoking Tobacco: Every Day Cigarettes 1 15 Smokeless Tobacco: Never Comments:Smokess 0.5 - 1 pac ks of cigarettes daily x 13 - 14 years. Alcohol Use Standard Drinks/Week Comments Not Currently 0 (1 standard drink = 0.6 oz pur e alcohol) [facility] Utilities Answer Date Recorded In the past 12 months has [employer], gas, oil, or water [employer] threatened to shut off services in your [...] place to sleep or slept in a residential (including now)? No 03/02/2024 DH IPV Inpatient [...] AM EDT documented as of this encounter Medications at Time of Discharge Medication Sig Dispensed Refills Start Date End Date ondansetron ODT (Zofran-ODT) 4 mg disintegrating tablet Take 1 tablet by mouth every 8 hours as needed for Nausea. 10 tablet 08/15/2024 famotidine (Pepcid) 20 mg tablet Take 1 tablet by mouth 2 times daily. 60 tablet 3 08/15/2024 nitroGLYcerin (Nitrostat) 0.[address] 1 tablet under the tongue every 5 minutes as needed for Chest pain. 30 tablet 11 08/15/2024 ferrous sulfate (FeroSul) 325 mg (65 mg iron) tablet Take 1 tablet by mouth daily. 30 tablet 12 08/13/2024 isosorbide dinitrate (Isordil) 5 mg tabletIndications:Chest discomfort Take 1 tablet by mouth 3 times daily as needed. 30 tablet 3 08/09/2024 sucralfate (Carafate) 100 mg/mL Suspension Take 10 mLs by mouth 3 times daily. 420 mL 07/15/2024 diazePAM (Valium) 2 mg tablet Take 1 tablet by mouth Three Times Daily for DHE. 02/19/2024 amLODIPine (Norvasc) 10 mg tablet Take 1 tablet by mouth daily. 90 tablet 3 09/09/2023 meclizine (Antivert) 25 mg chewable tablet 1/2 tablet as needed Orally up to three times a day for 7 days 07/31/2023 Antacid-Antigas 200-200-20 mg/5 mL Suspension COMBINE 10 MLS WITH LIDOCAINE ORALLY THREE TIMES A DAY Strength: 200-200-20 mg/5 mL 355 mL 1 10/31/2022 acetaminophen (Tylenol) 325 mg Tablet Take 3 tablets by mouth every 6 hours as needed for Pain. 30 tablet 1 07/29/2022 polyethylene glycoL (Miralax) 17 gram Powder in Packet Take 17 g by mouth daily. 14 each 07/29/2022 fluticasone propionate (Flonase) 50 mcg/actuation [place], SuspensionIndications:al lergic rhinitis 1 spray by Each Nare route nightly. Substitute OTC if needed Indications: inflammation of the nose due to an allergy 16 g 1 11/16/2021 cetirizine (ZyrTEC) 10 mg Tablet TAKE ONE TABLET BY MOUTH EVERY DAY 08/16/2021 fluticasone propionate (Flovent HFA) 110 mcg/actuation HFA Aerosol Inhaler Every 12 hours. 07/25/2021 ipratropium-albuteroL (Duoneb) 0.5 mg-3 mg(2.5 mg base)/3 mL Solution for Nebulization Every 6 hours. 12/29/2017 albuterol 90 mcg/actuation HFA Aerosol Inhaler Inhale 2 puffs into the lungs every 4 hours as needed for Wheezing. Use with spacer calcium carbonate (TUMS) 200 mg calcium (500 mg) Tablet, Chewable Take 1 tablet by mouth as needed. documented as of this encounter Plan of Treatment Upcoming Encounters Date Type Department Care Team (Late st Contact Info) Description 09/21/2024 8:15 AM EST Routine Obstetrics [place] [phone] Emili Cabrera MD [facility] [place] [address] 09/26/2024 6:00 PM EST Appointment [facility] [place] [phone] 10/16/2024 [place] [phone] Dudley Aguilar MD [facility] DR OBSTET[place]ICS [place] [address] 11/08/2024 10:00 AM EST Hospital Encounter [place] [phone] Arrived documented as of this encounter Procedures Procedure Name Priority Date/Time Associated Diagnosis Comments US OB FOLLOW UP Routine 08/31/2024 10:01 AM EST Chronic hypertension in documented in this encounter Results * US OB Follow Up (08/31/2024 10:01 AM EST) WORKSTATION ID [id number] DH RAD Anatomical Region Laterality Modality Pelvis, Abdomen Ultrasound 08/31/2024 9:59 AM EST Impressions 08/31/2024 10:04 AM EST 3rd Trimester Summary Single intrauterine with a gestational age of 33w 3d based on Early Ultrasound ??(02/26/24). Composite age based on the current ultrasound alone is 33w 4d. Estimated weight corresponds to the 50th percentile for 33w 3d. Current growth parameters are consistent with prior dating indicating normal growth. Amniotic fluid volume is suggstive of mild polyhydramnios due to MVP = 9cm, however overall ALPHONSO is within normal limits. Anatomical survey is limited due to the late gestational age. Thank you for letting us participate in the care of this patient. If you are a health care provider and have any questions regarding this report, please contact the number above. For patients who have questions, please contact the health rental boats caretaker that requested your imaging first. ? Marek Oliveira, Staff Physician Electronically Signed Final Report ?? 08/31/2024 10:03 am Narrative 08/31/2024 10:04 AM EST OBSTETRICS REPORT ?(Signed Final 08/31/2024 10:03 am) PATIENT INFO: ID #: ? [id number] ?: ??[birth year] (39 yrs)(F) Name: ? JOSE JUAN LUQUE ? Visit Date: 08/31/2024 09:59 am PERFORMED BY: Performed By: ? Elva Duffy RDMS Attending: ?Marek Oliveira MD Referred By: ?LEXIE LIZARRAGA Location: ? [place] SERVICE(S) PROVIDED: UOBFOL - Efw - Growth ??- [place] - [id number] INDICATIONS: 33 weeks gestation of ?Z3A.33 CHTN VITAL SIGNS: Weight (lb): 176.0 Height: ?5'4 ? BMI: ? 30.21 EVALUATION: Num Of Fetuses: ? 1 Heart Rate(bpm): ??141 Cardiac Activity: ? Observed, normal rhythm Presentation: ? Cephalic Placenta: ? Left lateral P. Cord Insertion: ?Within Normal Limits Amniotic Fluid ALPHONSO FV: ?Polyhydramnios by MVP ALPHONSO Sum(cm) ? Largest Pocket(cm) 18.6 ?9.5 RUQ(cm) ? RLQ(cm) ? LUQ(cm) ?LLQ(cm) 5.4 ? 2.1 ? 9.5 ?1.6 --------- BIOMETRY: --------- BPD: ?82.9 ??mm ? G.Age: ?? 33w 2d ?42 ??% OFD: ? 107.2 ??mm HC: ?303.1 ??mm ? G.Age: ?? 33w 5d ?20 ??% AC: ?298.8 ??mm ? G.Age: ?? 33w 6d ?65 ??% FL: ? 65.1 ??mm ? G.Age: ?? 33w 4d ?43 ??% HUM: ?58.3 ??mm ? G.Age: ?? 33w 5d ?66 ??% CER: ?44.9 ??mm ? G.Age: ?? 38w 6d ?> 95 ??% LV: ?2.9 ??mm CM: ?6.5 ??mm CI: ?77.3 ??% ? 70 - 86 FL/HC: ? 21.5 ??% ? 19.9 - 21.5 HC/AC: ? 1.01 ?0.96 - 1.11 FL/BPD: ?78.5 ??% ? 71 - 87 FL/AC: ? 21.8 ??% ? 20 - 24 Est. FW: ?2257 ??gm ? 5 lb ?50 ??% OB HISTORY: : ?6 ? Term: ?? 4 GESTATIONAL AGE: U/S Today: ? 33w 4d ?NAZIA: ?? 10/15/24 Best: ?33w 3d ?? Det. By: ??Early ?NAZIA: ?? 10/16/24 ? Ultrasound ? (02/26/24) -------- ANATOMY: -------- Cranium: ? Visualized Cavum: ? Limited views Ventricles: ?Limited views Choroid Plexus: ?Limited views Cerebellum: ?Limited views Posterior Fossa: ? Limited views Nuchal Fold: ? Not evaluated at this gestational age Face: ?Limited views Heart: ? Limited Views RVOT: ?Limited views LVOT: ?Visualized Diaphragm: ? Visualized Stomach: ? Visualized Abdomen: ? Limited Views Abdominal Wall: ?Cord insertion - WNL Cord Vessels: ?2 Vessel Cord Kidneys: ? Visualized Bladder: ? Visualized Spine: ? Limited views Upper Extremities: ? Limited views Lower Extremities: ? Limited views CERVIX UTERUS ADNEXA: Right Ovary Not visualized Left Ovary Not visualized Procedure Note Yudi Oliveira MD - 08/31/2024 OBSTETRICS REPORT (Signed Final 08/31/2024 10:03 am) PATIENT INFO: ID #: [id number] : [birth year] (39 yrs)(F) Name: JOSE JUAN LUQUE Visit Date: 08/31/2024 09:59 am PERFORMED BY: Performed By: Elva Duffy RDMS Attending: Marek Oliveira MD Referred By: LEXIE LIZARRAGA Location: [place] SERVICE(S) PROVIDED: UOBFOL - Efw - Growth - [place] - [id number] INDICATIONS: 33 weeks gestation of Z3A.33 CHTN VITAL SIGNS: Weight (lb): 176.0 Height: 5'4 BMI: 30.21 EVALUATION: Num Of Fetuses: 1 Heart Rate(bpm): 141 Cardiac Activity: Observed, normal rhythm Presentation: Cephalic Placenta: Left lateral P. Cord Insertion: Within Normal Limits Amniotic Fluid ALPHONSO FV: Polyhydramnios by MVP ALPHONSO Sum(cm) Largest Pocket(cm) 18.6 9.5 RUQ(cm) RLQ(cm) LUQ(cm) LLQ(cm) 5.4 2.1 9.5 1.6 --------- BIOMETRY: --------- BPD: 82.9 mm G.Age: 33w 2d 42 % OFD: 107.2 mm HC: 303.1 mm G.Age: 33w 5d 20 % AC: 298.8 mm G.Age: 33w 6d 65 % FL: 65.1 mm G.Age: 33w 4d 43 % HUM: 58.3 mm G.Age: 33w 5d 66 % CER: 44.9 mm G.Age: 38w 6d > 95 % LV: 2.9 mm CM: 6.5 mm CI: 77.3 % 70 - 86 FL/HC: 21.5 % 19.9 - 21.5 HC/AC: 1.01 0.96 - 1.11 FL/BPD: 78.5 % 71 - 87 FL/AC: 21.8 % 20 - 24 Est. FW: 2257 gm 5 lb 50 % OB HISTORY: : 6 Term: 4 GESTATIONAL AGE: U/S Today: 33w 4d NAZIA: 10/15/24 Best: 33w 3d Det. By: Early NAZIA: 10/16/24 Ultrasound (02/26/24) -------- ANATOMY: -------- Cranium: Visualized Cavum: Limited views Ventricles: Limited views Choroid Plexus: Limited views Cerebellum: Limited views Posterior Fossa: Limited views Nuchal Fold: Not evaluated at this gestational age Face: Limited views Heart: Limited Views RVOT: Limited views LVOT: Visualized Diaphragm: Visualized Stomach: Visualized Abdomen: Limited Views Abdominal Wall: Cord insertion - WNL Cord Vessels: 2 Vessel Cord Kidneys: Visualized Bladder: Visualized Spine: Limited views Upper Extremities: Limited views Lower Extremities: Limited views CERVIX UTERUS ADNEXA: Right Ovary Not visualized Left Ovary Not visualized IMPRESSION 3rd Trimester Summary Single intrauterine with a gestational age of 33w 3d based on Early Ultrasound (02/26/24). Composite age based on the current ultrasound alone is 33w 4d. Estimated weight corresponds to the 50th percentile for 33w 3d. Current growth parameters are consistent with prior dating indicating normal growth. Amniotic fluid volume is suggstive of mild polyhydramnios due to MVP = 9cm, however overall ALPHONSO is within normal limits. Anatomical survey is limited due to the late gestational age. Thank you for letting us participate in the care of this patient. If you are a health care provider and have any questions regarding this report, please contact the number above. For patients who have questions, please contact the health rental boats caretaker that requested your imaging first. Marek Oliveira, Staff Physician Electronically Signed Final Report 08/31/2024 10:03 am Lexie Lizarraga MD IMG OB ORDERABLES documented in this encounter Visit Diagnoses Diagnosis Chronic hypertension in Benign essential hypertension complicating , childbirth, and the puerperium, unspecified as to episode of care documented in this encounter Care Teams Sap Basis Relationship Specialty Start Date End Date Kenia Lawrence APRN [address] [place] [address] PCP - General Family Medicine 09/29/23 documented as of this encounter
--- OUTSIDE RECORDS SUMMARY | 2024-09-20 11:01 | XMS_ITS | Encounter Summary ---
Author Organization [facility] Address [facility] [place] [address] Care Team Providers Care Injection Molding Technician Name Role Phone MelindaKenia ford ADRIAN Primary Care Provider [phone] Encounter Details Date Type Department Care Team (Latest Contact Info) Description 08/15/2024 10:45 AM EDT - 08/15/2024 2:55 PM EDT [place] [id number] Janeth Quintana MD [facility] [address] OBSTETRICS [place] [address] Chest pain, unspecified type; Coronary artery vasospasm; Gastroesophageal reflux disease, unspecified whether esophagitis present; Chronic hypertension in ; Cardiac arrest; Diarrhea, unspecified type Discharge Disposition: Home Social History Tobacco Use Types Packs/Day Years Used Date Smoking Tobacco: Every Day Cigarettes 1 15 Smokeless Tobacco: Never Comments:Smokess 0.5 - 1 pac ks of cigarettes daily x 13 - 14 years. Alcohol Use Standard Drinks/Week Comments Not Currently 0 (1 standard drink = 0.6 oz pur e alcohol) [facility] Utilities Answer Date Recorded In the past 12 months has e [employer], gas, oil, or water company threatened to [...] place to sleep or slept in a prison (including now)? No 03/02/2024 DH IPV Inpatient [...] AM EDT documented as of this encounter Last Filed Vital Signs Vital Sign Reading Time Taken Comments Blood Pressure 126/78 08/15/2024 1:10 PM EDT Pulse 78 08/15/2024 1:10 PM EDT Temperature 36.7 ??C (98.1 ??F) 08/15/2024 10:57 AM E DT Respiratory Rate 20 08/15/2024 11:00 AM EDT Oxygen Saturation 99% 08/15/2024 11:00 AM EDT Inhaled Oxygen Concentration - - Weight 78.5 kg (173 lb) 08/15/2024 11:00 AM EDT Height 162.6 cm (5' 4) 08/15/2024 11:00 AM EDT Body Mass Index 29.7 08/15/2024 11:00 AM EDT documented in this encounter Discharge Instructions * Discharge Instructions* Yana Boswell, RN - 08/15/2024 2:46 PM EDT GESTATION - Less Than 37 Weeks Call your provider if: You are feeling any cramping sensations in your abdomen less than 20 minutes apart Prabhjot-Alvarez Contractions usually are irregular may get less painful or go away with walking, resting, or any other activities usually felt in the front and do not radiate to the back labor contractions may start irregular in frequency, then become regular and more frequent usually start in the front and radiate to the back resting, walking, and other activities will not take them away or may even make them worse You are leaking fluid may be a small leak of fluid may be a large gush note the time it started leaking, amount, and color of fluid (clear, yellow, green, pink, red) You notice vaginal bleeding spotting is normal following a vaginal exam in your doctor's or analysis engineer's office you should not bleed as much as a period You have noticed a marked decrease in your baby's movement refer to your kick count instructions in the Your Journey book baby should move at least 10 times in 2 hours You have had any direct trauma to your abdomen such as a car accident, fall, or impact or if you have any of these symptoms: Headache Visual disturbance/spots in front of your eyes/blurry vision Pain under your ribs toward the right side of your abdomen Sudden swelling to your legs or any increase in swelling to your arms and face Pain or bleeding on urination A temperature at or above 100.4F Nausea or vomiting Flu-like symptoms: cough, fever, or muscle aches GENERAL INSTRUCTIONS Drink plenty of non-caffeinated fluids throughout the day to prevent dehydration Keep your regularly scheduled doctor or analysis engineer appointment To contact the OB doctor call To contact analysis engineer call documented in this encounter Medications at Time of Discharge [...] each 07/29/2022 fluticasone propionate (Flonase) 50 mcg/actuation [place], SuspensionIndications:a llergic rhinitis 1 spray by Each Nare route [...] Take 1 tablet by mouth as needed. terconazole (TERAZOL 7) 0.4 % Cream Place 1 applicator vaginally nightly. 45 g 03/03/2024 08/23/2024 documented as of this encounter Progress Notes * Jane Bejarano MD - 08/15/2024 10:56 AM EDT OB Triage Note Patient name: Aniya Luque Date of : 1985 Date of visit: 08/15/2024 12:17 PM Aniya Luque is a 39 y.o. female with an NAZIA of 10/16/2024, by Other Basis who is at 31w1d weeks gestation. Chief Complaint: The patient presents for evaluation of abdominal cramping, diarrhea, and vomiting for the past 2 weeks but most severe in the last 2 days. She denies any recent sick contacts (no one at home is sick with the same symptoms, including her two school-age and preschool-age children), recent consumptionof bad food or water. She reports her diarrhea has been loose and yellow and appearance. She has also had watery vomiting episodes that have prevented her from keeping down food or water for the last2 days. Patient reports a new pressure sensation when she urinates. Patient denies blood in the urine, stool, or vomit. She endorses a new frontal headache since this morning. She has taken Tylenol with mild improvement in her pain. Patient states the pain is worse with exposure to light. She denies measured fever but has felt chills. She denies chest pain but reports a pressure sensation in her chest. No shortness of breath. She has taken her nitrate a couple of times in the last 24 hours but still feels this sensation in her chest. Patient reports slightly decreased movement over the last week, but has still felt baby move.She denies vaginal bleeding or abnormal discharge. She endorses abdominal and lower back cramping but is unsure whether this is related to her other symptoms or are contractions. She notes this cramping feels different than the cramping she had with previous births. Her has been complicated by: History of cardiac arrest, coronary artery vasospasm (2021) Normal echo 04/2024, LVEF 65% ICD in place, recently interrogated and no shocks Follows with Dr. Zurita, last visit on 08/13/24 On amlodipine 10mg daily, isordil daily for chest pain Depression, anxiety On Valium daily Seeing psychiatrist every 2 weeks 3. Chronic hypertension 4. Isolated single umbilical artery Movement: decreased Contractions: none Leaking: None Bleeding: none Preeclampsia signs and symptoms: None Physical Exam: Temp: [36.7 ??C (98.1 ??F)] Heart Rate: [93] Resp: [20] BP: (141)/(94) SpO2: [99 %-100 %] Heart Rate from SpO2: [91 bpm-95 bpm] General: Anxious and uncomfortable appearing, sitting up in bed HEENT: dry mucous membranes Cardio: RRR no murmurs Pulm: lungs CTAB, normal work of breathing GI: soft, mild generalized tenderness to palpation, no rebound or guarding, gravid S=D Skin: warm, dry Back: no CVA tenderness Cervical Exam: Unable to fully assess due to patient discomfort with exam. Unable to palpate cervixbelow -4 station. FHR Evaluation: Nonstress Test, Fetus A HR (beats/min): 135 (08/15/24 1156) HR Variability: moderate (amplitude range 6 to 25 bpm) (08/15/24 1156) HR Accelerations: present (08/15/24 1156) Sterile Speculum: not indicated The following Labs were obtained: Latest Reference Range & Units 08/15/24 11:45 White Blood Cell 4.00 - 9.50 x10(3)/mcL 15.46 (H) Red Blood Cell 4.00 - 5.21 x10(6)/mcL 3.47 (L) Hemoglobin 11.7 - 15.5 g/dL 9.8 (L) Hematocrit 35.7 - 45.8 % 29.6 (L) Mean Cell Volume 82.6 - 94.4 fL 85.3 Mean Cell Hemoglobin 27.1 - 32.0 pg 28.2 Mean Cell Hemoglobin Concentration 31.7 - 35.0 g/dL 33.1 RDW Standard Deviation 37.0 - 46.0 fL 48.6 (H) RDW coefficient of variation 11.5 - 14.1 % 15.6 (H) Platelet 145 - 357 x10(3)/mcL 309 Mean Platelet Volume 7.6 - 12.9 fL 10.7 NRBC% auto % 0.0 NRBC Absolute <0.01 x10(3)/mcL <0.01 Neutrophil Absolute (ANC) - Automated 1.70 - 6.10 x10(3)/mcL 12.23 (H) Neutrophil % % 79.1 Immature Gran % % 0.6 Lymph % % 15.1 Monocyte % % 3.7 Eos % % 1.3 Basophil % % 0.2 Immature Gran Absolute 0.00 - 0.04 x10(3)/mcL 0.10 (H) Lymph Absolute 0.90 - 3.20 x10(3)/mcL 2.33 Monocyte Absolute 0.30 - 0.90 x10(3)/mcL 0.57 Eos Absolute 0.00 - 0.40 x10(3)/mcL 0.20 Baso Absolute 0.00 - 0.10 x10(3)/mcL <0.04 (H): Data is abnormally high (L): Data is abnormally low Latest Reference Range & Units 08/15/24 11:45 Sodium 135 - 145 mMol/L 135 Potassium 3.5 - 5.0 mMol/L 3.9 Chloride 98 - 107 mMol/L 100 Carbon Dioxide 22 - 31 mMol/L 21 (L) Anion Gap 5 - 15 mMol/L 14 Blood Urea Nitrogen 8 - 18 mg/dL 10 Creatinine 0.70 - 1.20 mg/dL 0.76 Est Glomerular Filtration Rate - Female mL/min/1.73 m?? 102 Calcium 8.5 - 10.5 mg/dL 9.0 Glucose 65 - 99 mg/dL 101 (H) Fasting Status Yes (L): Data is abnormally low (H): Data is abnormally high Latest Reference Range & Units 08/15/24 11:45 Protein, Total 6.1 - 8.0 g/dL 6.5 Albumin 3.2 - 5.2 g/dL 3.4 Bilirubin, Total <=1.3 mg/dL 0.2 Alkaline Phosphatase 35 - 105 unit/L 119 (H) Aspartate Aminotransferase <=30 unit/L 8 Alanine Aminotransferase 0 - 30 unit/L 9 Amylase 28 - 100 unit/L 100 Lipase 0 - 60 unit/L 20 (H): Data is abnormally high Latest Reference Range & Units 08/15/24 11:45 Troponin-T, High Sensitivity <=14 ng/L <6 NT-proBNP <=124 pg/mL 125 (H) (H): Data is abnormally high Latest Reference Range & Units 08/15/24 11:47 Color, Urine Dipstick Yellow, Dark Yellow Yellow Appearance, Urine Dipstick Clear Clear Specific [place] Urine Automated 1.005 - 1.030 1.012 pH, Urn (dipstick) 5.0 - 8.0 7.5 Protein, Urine Dipstick Negative Negative Glucose, Urine Dipstick Negative Negative Ketone, Urine Dipstick Negative Negative Bilirubin, Urine Dipstick Negative Negative Urobilinogen, Urine Dipstick Normal, 0.2 mg/dL, 1.0 mg/dL Normal Blood, Urine Dipstick Negative Negative Leukocytes, Urine Dipstick Negative Negative Nitrite, Urine Dipstick Negative Negative Pending studies: Stool culture screen Assessment/Plan: 39 y.o. female with an 10/16/2024, by Other Basis who is at 31w1d gestation being evaluatedfor acute vomiting, diarrhea, abdominal cramping, and chest pressure. Labor State: Not in labor. Heart Rate Assessment: Reactive NST #Vomiting, diarrhea, abdominal cramping #Leukocytosis Suspect infectious diarrhea given constellation of symptoms with acute onset, likely viral gastroenteritis. No red flag symptoms concerning for inflammatory diarrhea (blood in the stool, high fever).Abdominal exam without peritoneal signs, do not suspect appendicitis. Urinalysis normal, do not suspect UTI or pyelonephritis. Given high risk status (current , history of cardiac disease), will order stool culture screen for bacterial diarrhea etiologies, although suspicion is low given overall reassuring appearance, mild leukocytosis, absence of high fever. She was treated symptomatically with 1L bolus of LR, Zofran 4mg IV, and Tylenol 650mg PO. Patient tolerated a PO challenge. Patient unable to provide stool sample while here, will send patient home with kit and have her return it when able. Will send patient home with prescription for Zofran and Pepcid. #Chest pressure #History of cardiac arrest, coronary artery vasospasm #ICD in place High sensitivity troponin negative. Pro-BNP just above upper limit of normal but within range of normal for . EKG performed did not demonstrate new findings concerning for ischemia. Patient was discussed with Cardiology Dr. Gomez, who personally reviewed the patient's EKG and felt it was consistent with her baseline EKG. Recommended adding PRN sublingual nitroglycerin for chest pain; will order for discharge. Patient stable for discharge home with continued outpatient follow-up as below: Future Appointments Date Time Provider Department Center 08/23/2024 9:30 AM NST, ROOM [facility] 08/23/2024 9:30 AM NURSE, CLEM/PHYLICIA OBDOMINICN [facility] [address] [place] [address] 08/23/2024 10:00 AM Romana Torres MD [facility] 08/24/2024 9:00 AM PRE ANESTHESIA, CONSULT [facility] SAMEDAY [facility] 08/30/2024 8:00 AM NST, ROOM [facility] 08/30/2024 8:00 AM NURSE, CLEM/MFM OBGYN [facility] [address] [place] [address] 08/30/2024 8:30 AM Romana Torres MD [facility] [address] [place] [address] 09/07/2024 9:30 AM [facility] DB US ROOM 1 MH US MH Rad 09/07/2024 10:30 AM NST, ROOM [facility] [address] 09/07/2024 10:30 AM NURSE, CNM/MFM OBGYN [facility] [address] 09/07/2024 11:00 AM Gerard Oliveira MD [facility] [address] Patient seen and discussed with Dr. Quintana, Attending OBGYN. Jane Bejarano MD PGY-1 Obstetrics and Gynecology 08/15/24 Associated attestation - Janeth Quintana MD - 08/22/2024 7:16 AM EST I have seen and examined the patient, discussed the plan of care with the resident as well as the patient, and agree with documentation as above. Likely viral gastroenteritis. Chest symptoms investigated and no evidence of acute cardiac process. Reviewed with cardiology who agreed. Janeth Quintana MD documented in this encounter Plan of Treatment Upcoming Encounters Date Type Department Care Team (Late st Contact Info) Description 09/21/2024 8:15 AM EST Routine Obstetrics [place] [address] Emili Cabrera MD [facility] [place] [address] 09/26/2024 6:00 PM EST Appointment [facility] [place] [address] 10/16/2024 [place] [address] Dudley Aguilar MD [facility] OBSTET[place] [address] 11/08/2024 10:00 AM EST Hospital Encounter Non-[place] [address] Arrived Pending Results Name Type Priority Associated Diagnoses Date /Time Troponin - Series Lab STAT 024 11:45 AM EDT Scheduled Orders Name Type Priority Associated Diagnoses Orde r Schedule Troponin - Series Lab STAT One Jesús e for 1 Occurrences starting 08/15/2024 until 08/15/2024 Troponin-T, High Sensitivity 3 Hour Lab STAT Once for 1 Oc currences starting 08/15/2024 until 08/15/2024 documented as of this encounter Procedures Procedure Name Priority Date/Time Associated Diagnosis Comments EKG 12-LEAD STAT 08/15/2024 11:49 AM EDT Chest pain, unspecified type Coronary artery vasospasm Gastroesophageal reflux disease, unspecified whether esophagitis present Chronic hypertension in Cardiac arrest URINALYSIS WITH REFLEX CULTURE Routine 08/15/2024 11:47 AM EDT TROPONIN-T, HIGH SENSITIVITY INITIAL PERFORMABLE STAT 08/15/2024 11:45 AM EDT CBC (WITH DIFF) STAT 08/15/2024 11:45 AM EDT PRO-BRAIN NATRIURETIC PEPTIDE Routine 08/15/2024 11:45 AM EDT LIPASE Routine 08/15/2024 11:45 AM EDT AMYLASE Routine 08/15/2024 11:45 AM EDT COMPREHENSIVE METABOLIC PANEL STAT 08/15/2024 11:45 AM EDT documented in this encounter Results * EKG 12 Lead (08/15/2024 11:49 AM EDT) Ventricular rate 80 BPM MUSE SYSTEM Atrial Rate 80 BPM MUSE SYSTEM P-R Interval 128 ms MUSE SYSTEM QRS Duration 80 ms MUSE SYSTEM Q-T Interval 382 ms MUSE SYSTEM QTC Calculated (Bezet) 440 ms MUSE SYSTEM Calculated P [place] 25 degrees MUSE SYSTEM Calculated R [place] 48 degrees MUSE SYSTEM Calculated T [place] 12 degrees MUSE SYSTEM INTERPRETATION Normal sinus rhythm Possible Anterior infarct (cited on or before 23-JUL-2022) Abnormal ECG When compared with ECG of 20-OCT-2022 07:29, No significant change was found I personally reviewed the tracing and edited the fellows interpretation Confirmed by fellow Noah Villanueva ([id number]) on 08/20/2024 9:03:00 AM Confirmed by MD AMADO ARMIN ([id number]) on 08/20/2024 1:36:48 PM MUSE SYSTEM 08/15/2024 11:4 9 AM EDT 08/20/2024 1:36 PM EDT Janeth Quintana MD ECG ORDERABLES MUSE SYSTEM * Urinalysis with reflex Culture (08/15/2024 11:47 AM EDT) Glucose, Urine Dipstick Negative Negative 08/15/2024 11:59 AM [facility] Protein, Urine Dipstick Negative Negative 08/15/2024 11:59 AM T [facility] Bilirubin, Urine Dipstick Negative Negative 08/15/2024 11:59 AM [facility] Comment:Clinical correlation required for positive Urine Bilirubin results as false positive may occur with some drugs and drug related products. If a false positive is suspected a serum total bilirubin should be considered if clinically indicated. Urobilinogen, Urine Dipstick Normal Normal, 0.2 mg/dL, 1.0 mg/dL 08/15/2024 11:59 AM [facility] pH, Urine (dipstick) 7.5 5.0 - 8.0 08/15/2024 11:59 AM [facility] Blood, Urine Dipstick Negative Negative 08/15/2024 11:59 AM [facility] Ketone, Urine Dipstick Negative Negative 08/15/2024 11:59 AM [facility] Nitrite, Urine Dipstick Negative Negative 08/15/2024 11:59 AM EDT [facility] Leukocytes, Urine Dipstick Negative Negative 08/15/2024 11:59 AM EDT [facility] Specific [place] Urine Automated 1.012 1.005 - 1.030 08/15/2024 11:59 AM EDT [facility] Appearance, Urine Dipstick Clear Clear 08/15/2024 11:59 AM EDT [facility] Color, Urine Dipstick Yellow Yellow, Dark Yellow 08/15/2024 11:59 AM EDT [facility] CULTURE ADDED? 08/15/2024 11:59 AM EDT [facility] Urine URINE SPECIMEN OBTAINED BY CLEAN CATCH PROCEDURE / Unknown Non Blood Collection / Unknown 08/15/2024 11:47 AM EDT 08/15/2024 11:53 AM EDT Janeth Quintana MD URINE ORDERABLES [facility] [place] [address] * Troponin-T, High Sensitivity (08/15/2024 11:45 AM EDT) Pathologist [facility] Troponin-T, High Sensitivity Initial <6 <=14 ng/L 08/15/2024 12:34 PM EDT [facility] Comment: This patient's troponin T concentration was determined using the Aiden 5th Generation troponin T assay. The 99th percentile for Troponin T for this test is 14 ng/L for females, and 22 ng/L for males. According to the fourth universal definition of myocardial infarction, the term acute myocardial infarction should be used when there is acute myocardial injury with clinical evidence of acute myocardial ischemia and with detection of a rise and/or fall of cardiac troponin values with at least one value above the 99th percentile and at least one of the following: - Symptoms of myocardial ischemia; - New ischemic ECG changes; - Development of pathological Q waves; - Imaging evidence of new loss of viable myocardium or new regional wall motion ?? abnormality in a pattern consistent with an ischemic etiology; - Identification of a coronary thrombus by angiography or autopsy (not for type 2 or 3 ?? MIs) Serial measurement of troponin and the change in troponin concentration over time (delta) is crucial for the diagnosis of acute myocardial infarction. Guidance on the interpretation of the new 5th Generation Troponin T values and the delta troponin value can be found in the [facility] Laboratory Test Catalog Troponin - [email or web address]/catalogs/565/files/19175 Reference: Fourth Wellman Definition of Myocardial Infarction. Journal of the [place] College [employer] 2018;72:1496-0641 Blood VENOUS BLOOD SPECIMEN / Unknown Venipuncture / Unknown 08/15/2024 11:45 AM EDT 08/15/2024 11:53 AM EDT Janeth Quintana MD CHEMISTRY ORDERABLES Performing Organization Address City/[facility]/ZIP Co de Phone Number [facility] [place] [address] * (ABNORMAL) pro-Brain Natriuretic Peptide (08/15/2024 11:45 AM EDT) NT-proBNP 125(H) <=124 pg/mL 08/15/2024 12:34 PM EDT [facility] Blood VENOUS BLOOD SPECIMEN / Unknown Venipuncture / Unknown 08/15/2024 11:45 AM EDT 08/15/2024 11:53 AM EDT Janeth Quintana MD CHEMISTRY ORDERABLES Performing Organization Address City/[facility]/ZIP Co de Phone Number [facility] [address] * Lipase (08/15/2024 11:45 AM EDT) Lipase 20 0 - 60 unit/L 08/15/2024 12:34 PM EDT [facility] Blood VENOUS BLOOD SPECIMEN / Unknown Venipuncture / Unknown 08/15/2024 11:45 AM EDT 08/15/2024 11:53 AM EDT Janeth Quintana MD CHEMISTRY ORDERABLES [facility] [place] [address] * Amylase (08/15/2024 11:45 AM EDT) Amylase 100 28 - 100 unit/L 08/15/2024 12:34 PM EDT [facility] Blood VENOUS BLOOD SPECIMEN / Unknown Venipuncture / Unknown 08/15/2024 11:45 AM EDT 08/15/2024 11:53 AM EDT Janeth Quintana MD CHEMISTRY ORDERABLES Performing Organization Address City/[facility]/ZIP Co de Phone Number [facility] [place] [address] * (ABNORMAL) Comprehensive metabolic panel (08/15/2024 11:45 AM EDT) Glucose 101(H) 65 - 99 mg/dL 08/15/2024 12:34 PM EDT [facility] Comment: Fasting Glucose Interpretive Criteria: Normal: 65-99 mg/dL ?? Prediabetes: 100-125 mg/dL ?? Consistent with Diabetes Mellitus: > or = 126 mg/dL ?? Classification and Diagnosis of Diabetes: Standards of Care in Diabetes - 2022. Diabetes Care 2022; 46:S19. Fasting is defined as no caloric intake for at least 8 hours. Blood Urea Nitrogen 10 8 - 18 mg/dL 08/15/2024 12:34 PM EDT [facility] Creatinine 0.76 0.70 - 1.20 mg/dL 08/15/2024 12:34 PM EDT [facility] Sodium 135 135 - 145 mMol/L 08/15/2024 12:34 PM EDT [facility] Potassium 3.9 3.5 - 5.0 mMol/L 08/15/2024 12:34 PM EDT [facility] Chloride 100 98 - 107 mMol/L 08/15/2024 12:34 PM EDT [facility] Carbon Dioxide 21(L) 22 - 31 mMol/L 08/15/2024 12:34 PM [facility] Anion Gap 14 5 - 15 mMol/L 08/15/2024 12:34 PM [facility] Calcium 9.0 8.5 - 10.5 mg/dL 08/15/2024 12:34 PM [facility] Protein, Total 6.5 6.1 - 8.0 g/dL 08/15/2024 12:34 PM [facility] Albumin 3.4 3.2 - 5.2 g/dL 08/15/2024 12:34 PM [facility] Aspartate Aminotransferase 8 <=30 unit/L 08/15/2024 12:34 PM [facility] Alanine Aminotransferase 9 0 - 30 unit/L 08/15/2024 12:34 PM [facility] Alkaline Phosphatase 119(H) 35 - 105 unit/L 08/15/2024 12:34 PM [facility] Bilirubin, Total 0.2 <=1.3 mg/dL 08/15/2024 12:34 PM [facility] Est Glomerular Filtration Rate - Female 102 mL/min/1. 73 m?? 08/15/2024 12:34 PM [facility] Comment: This patient's estimated GFR was calculated using the 2020 CKD-EPI equation. The estimated GFR can vary from the measured GFR by up to 30% in the absence of rapidly changing kidney function. Assessment of the estimated GFR is not appropriate when creatinine concentrations are rapidly changing. For clinical situations in which a more precise estimate of GFR is necessary, consider alternative methods of GFR estimation such as a 24-hour urine creatinine clearance. Assignment of CKD stage 1 - 5 for patients with an eGFR near the transition point between stages may be based on clinical assessment of muscle mass and symptoms in addition to eGFR. Link: eGFR Calculator [employer] Fasting Status Yes 08/15/2024 12:34 PM [facility] LABORATORY Blood VENOUS BLOOD SPECIMEN / Unknown Venipuncture / Unknown 08/15/2024 11:45 AM EDT 08/15/2024 11:53 AM EDT Janeth Quintana MD CHEMISTRY ORDERABLES [facility] [place] [address] * (ABNORMAL) CBC (with Diff) (08/15/2024 11:45 AM EDT) White Blood Cell 15.46(H) 4.00 - 9.50 x10(3)/mc L 08/15/2024 11:59 AM EDT [facility] Red Blood Cell 3.47(L) 4.00 - 5.21 x10(6)/mc L 08/15/2024 11:59 AM EDT [facility] Hemoglobin 9.8(L) 11.7 - 15.5 g/dL 08/15/2024 11:59 AM EDT [facility] Hematocrit 29.6(L) 35.7 - 45.8 % 08/15/2024 11:59 AM EDT [facility] Mean Cell Volume 85.3 82.6 - 94.4 fL 08/15/2024 11:59 AM EDT [facility] Mean Cell Hemoglobin 28.2 27.1 - 32.0 pg 08/15/2024 11:59 AM EDT [facility] Mean Cell Hemoglobin Concentration 33.1 31.7 - 35.0 g/dL 08/15/2024 11:59 AM EDT [facility] Platelet 309 145 - 357 x10(3)/mc L 08/15/2024 11:59 AM EDT [facility] Mean Platelet Volume 10.7 7.6 - 12.9 fL 08/15/2024 11:59 AM EDT [facility] RDW Standard Deviation 48.6(H) 37.0 - 46.0 fL [facility] coefficient of variation 15.6(H) 11.5 - 14.1 % 08/15/2024 11:59 AM EDT [facility] NRBC% auto 0.0 % 08/15/2024 11:59 AM [facility] NRBC Absolute <0.01 <0.01 x10(3)/mc L 08/15/2024 11:59 AM [facility] Neutrophil % 79.1 % 08/15/2024 11:59 AM [facility] Neutrophil Absolute (ANC) - Automated 12.23(H) 1.70 - 6.10 x10(3)/mc L 08/15/2024 11:59 AM [facility] Lymph % 15.1 % 08/15/2024 11:59 AM [facility] Lymph Absolute 2.33 0.90 - 3.20 x10(3)/mc L 08/15/2024 11:59 AM [facility] Monocyte % 3.7 % 08/15/2024 11:59 AM [facility] Monocyte Absolute 0.57 0.30 - 0.90 x10(3)/mc L 08/15/2024 11:59 AM [facility] Eos % 1.3 % 08/15/2024 11:59 AM [facility] Eos Absolute 0.20 0.00 - 0.40 x10(3)/mc L 08/15/2024 11:59 AM [facility] Basophil % 0.2 % 08/15/2024 11:59 AM [facility] Baso Absolute <0.04 0.00 - 0.10 x10(3)/mc L 08/15/2024 11:59 AM [facility] Immature Gran % 0.6 % 11:59 AM [facility] Immature Gran Absolute 0.10(H) 0.00 - 0.04 x10(3)/mc L 08/15/2024 11:59 AM [facility] Blood VENOUS BLOOD SPECIMEN / Unknown Venipuncture / Unknown 08/15/2024 11:45 AM EDT 08/15/2024 11:53 AM EDT Janeth Quintana MD HEMATOLOGY ORDERABLE S [facility] [place] [address] documented in this encounter Visit Diagnoses Diagnosis Chest pain, unspecified type Coronary artery vasospasm Prinzmetal angina Gastroesophageal reflux disease, unspecified whether esophagitis present Chronic hypertension in Benign essential hypertension complicating , childbirth, and the puerperium, unspecified as to episode of care Cardiac arrest Diarrhea, unspecified type documented in this encounter Administered Medications Inactive Administered Medications - up to 3 most recent administrations Medication Order MAR Action Action Date Dose Rate Site acetaminophen (Tylenol) tablet 650 mg 650 mg, Oral, EVERY 6 HOURS PRN, Starting on 08/15/24 at 1257, Until 08/15/24 at 1655, Pain, Fever, - Maximum dose of acetaminophen is 4,000 mg from all sources in 24 hours. - Unless otherwise specified, when ordered PRN for pain, acetaminophen should be given first if other PRN pain medications are ordered., Routine Given 08/15/2024 1:08 PM EDT 650 mg lactated Ringers 500 mL IV bolus Intravenous, ONCE, 1 dose, On 08/15/24 at 1215 New Bag 08/15/2024 11:58 AM EDT lactated Ringers 500 mL IV bolus Intravenous, ONCE, 1 dose, On 08/15/24 at 1230 New Bag 08/15/2024 1:01 PM EDT ondansetron (pf) (Zofran) (2 mg/mL) injection 4 mg 4 mg, Intravenous, EVERY 8 HOURS PRN, Starting on 08/15/24 at 1247, Until 08/15/24 at 1655, Nausea Given 08/15/2024 12:59 PM EDT 4 mg documented in this encounter Active and Recently Administered Medications Times are shown in EDT. Scheduled Medication Order 08/13/2024 08/14/2024 08/15/2024 lactated Ringers 500 mL IV bolus (COMPLETED) Intravenous, ONCE, 1 dose, On 08/15/24 at 1215 1158 (New Bag - Prov ider: Yana Boswell, RN) lactated Ringers 500 mL IV bolus (COMPLETED) Intravenous, ONCE, 1 dose, On 08/15/24 at 1230 1301 (New Bag - Prov ider: Yana Boswell RN) PRN Medication Order 08/13/2024 08/14/2024 08/15/2024 acetaminophen (Tylenol) tablet 650 mg 650 mg, Oral, EVERY 6 HOURS PRN, Starting on 08/15/24 at 1257, Until 08/15/24 at 1655, Pain, Fever, - Maximum dose of acetaminophen is 4,000 mg from all sources in 24 hours. - Unless otherwise specified, when ordered PRN for pain, acetaminophen should be given first if other PRN pain medications are ordered., Routine 1308 (Given - Provid er: Yana Boswell RN) ondansetron (pf) (Zofran) (2 mg/mL) injection 4 mg 4 mg, Intravenous, EVERY 8 HOURS PRN, Starting on 08/15/24 at 1247, Until 08/15/24 at 1655, Nausea 1259 (Given - Provid er: Yana Boswell RN) documented in this encounter Care Teams Injection Molding Technician Relationship Specialty Start Date End Date Kenia Lawrence, [employer] SEC[employer] MANAGER [address] [place] [address] PCP - General Family Medicine 09/29/23 documented as of this encounter
--- OUTSIDE RECORDS SUMMARY | 2024-09-20 11:01 | XMS_ITS | Encounter Summary ---
Author Organization [facility] Address [facility] [place] [address] Care Team Providers Care Phosphatic Fertilizer Supervisor Name Role Phone MelindaKenia ford ADRIAN Primary Care Provider +1- [phone] Encounter Details Date Type Department Care Team (Late st Contact Info) Description 08/23/2024 10:00 AM EST Routine Obstetrics [place] [address] Romana Torres MD [facility] DR OBSTETRICS [place] [address] GA: [id number] Social History Tobacco Use Types Packs/Day Years Used Date Smoking Tobacco: Every Day Cigarettes 1 15 Smokeless Tobacco: Never Comments:Smokess 0.5 - 1 pac ks of cigarettes daily x 13 - 14 years. Alcohol Use Standard Drinks/Week Comments Not Currently 0 (1 standard drink = 0.6 oz pur e alcohol) [facility] Utilities Answer Date Recorded In the past 12 months has e [employer], gas, oil, or water [employer] threatened to shut off services in your [...] place to sleep or slept in a custodial (including now)? No 03/02/2024 DH IPV Inpatient [...] Sign Reading Time Taken Comments Blood Pressure 128/75 08/23/2024 9:28 AM EST Pulse - - Temperature - - Respiratory Rate - - Oxygen Saturation - - Inhaled Oxygen Concentration - - Weight 80 kg (176 lb 6.4 oz) 08/23/2024 9:28 AM EST Height - - Body Mass Index 30.28 08/15/2024 11:00 AM EDT documented in this encounter Progress Notes * Faiza Poe RN - 08/23/2024 10:00 AM EST GA 32w, 2d AMA, cHTN PHQ: 6 Reports worsening depression. 08/23/2024 9:41 AM NST Fetus A HR (beats/min) 140 HR Variability moderate (amplitude range 6 to 25 bpm) HR Accelerations present;greater than/equal to 15 bpm;lasting at least 15 seconds HR Decelerations absent Contraction Frequency (Minutes) None Nonstress Test Interpretation Reactive, >32 weeks: two 15 bpm accelerations lasting 15 seconds Overall Impression Reassuring for gestational age Comments Total time on EFM: 44 minutes I personally reviewed the FHR tracing and documented the interpretation. ROMANA TORRES MD * Romana Torres MD - 08/23/2024 10:00 AM EST 32 weeks. H/O cardiac arrest after vasospasm05/05 echo was normal Recent BP evaluation for gastroenteritis. Was better for a while now with more loose bowel movements. Cardiac during BP eval: Troponin's neg. proBNP normal for preegnancy Rx nitrates Chest pain pain better after nitrates C/o urinary frequency without dysuria or hematuria She denies bleeding, leaking of fluid, pain or regular contractions. She notes good movement. Reports mood is bad. Is accepting of a mental health referral. Patient Vitals for the past 24 hrs: BP 08/23/24 0928 128/75 NST reactive 32 weeks H/O cardiac arrest after vasospasm. Has ICD. Rx nitrates seems to help Chronic hypertension Depression/anxiety accepting of mental health clinician referral Possible UTI Plan continue testing Urine culture Refer to [facility] to discuss delivery date Anesthesia consult tomorrow Back pain handout given ERB documented in this encounter Plan of Treatment Upcoming Encounters Date Type Department Care Team (Late st Contact Info) Description 09/21/2024 8:15 AM EST Routine Obstetrics [place] [address] Emili Cabrera MD [facility] MATERNAL [place] [address] 09/26/2024 6:00 PM EST Appointment [facility] [place] [phone] 10/16/2024 Hospital [place] [address] Dudley Aguilar MD [facility] OBSTETRICS [place] [address] 11/08/2024 10:00 AM EST Hospital Encounter Non-Invasive [place] [phone] Arrived documented as of this encounter Procedures Procedure Name Priority Date/Time Associated Diagnosis Comments URINALYSIS MICROSCOPIC WITH REFLEX TO CULTURE Routine 08/23/2024 10:30 AM EST Urinary frequency URINALYSIS WITH REFLEX CULTURE Routine 08/23/2024 10:30 AM EST Urinary frequency documented in this encounter Results * Urinalysis Microscopic with Reflex to Culture (08/23/2024 10:30 AM EST) Bacteria, Urine None None /HPF 5:33 PM EST [facility] RBC, Urine 3 0 - 4 /HPF 08/23/2024 5:33 PM [facility] WBC, Urine 1 0 - 5 /HPF 08/23/2024 5:33 PM [facility] Squamous Epithelial Cells, Urine 1 0 - 5 /HPF 08/23/2024 5:33 PM [facility] Hyaline Casts, Urine 1 0 - 2 /LPF 08/23/2024 5:33 PM [facility] CULTURE ADDED? 08/23/2024 5:33 PM [facility] Urine URINE SPECIMEN OBTAINED BY CLEAN CATCH PROCEDURE / Unknown Non Blood Collection / Unknown 08/23/2024 10:30 AM EST 08/23/2024 4:37 PM EST Romana Torres MD URINE ORDERABLES Performing Organization Address City/State/[facility] Co de Phone Number [facility] [place] [address] * (ABNORMAL) Urinalysis with reflex Culture (08/23/2024 10:30 AM EST) Glucose, Urine Dipstick Negative Negative 08/23/2024 5:33 PM [facility] Protein, Urine Dipstick Trace(A) Negative 08/23/2024 5:33 PM [facility] Bilirubin, Urine Dipstick Negative Negative 08/23/2024 5:33 PM [facility] Comment:Clinical correlation required for positive Urine Bilirubin results as false positive may occur with some drugs and drug related products. If a false positive is suspected a serum total bilirubin should be considered if clinically indicated. Urobilinogen, Urine Dipstick Normal Normal, 0.2 mg/dL, 1.0 mg/dL 08/23/2024 5:33 PM [facility] pH, Urine (dipstick) 7.5 5.0 - 8.0 08/23/2024 5:33 PM [facility] Blood, Urine Dipstick Negative Negative 08/23/2024 5:33 PM [facility] Ketone, Urine Dipstick Negative Negative 08/23/2024 5:33 PM [facility] Nitrite, Urine Dipstick Negative Negative 08/23/2024 5:33 PM [facility] Leukocytes, Urine Dipstick Negative Negative 08/23/2024 5:33 PM [facility] Specific [place] Urine Automated 1.012 1.005 - 1.030 08/23/2024 5:33 PM [facility] Appearance, Urine Dipstick Clear Clear 08/23/2024 5:33 PM [facility] Color, Urine Dipstick Yellow Yellow, Dark Yellow 08/23/2024 5:33 PM [facility] CULTURE ADDED? 08/23/2024 5:33 PM [facility] Urine URINE SPECIMEN OBTAINED BY CLEAN CATCH PROCEDURE / Unknown Non Blood Collection / Unknown 08/23/2024 10:30 AM EST 08/23/2024 4:37 PM EST Romana Torres MD URINE ORDERABLES [facility] [place] [address] documented in this encounter Visit Diagnoses Diagnosis Urinary frequency Chronic hypertension in Benign essential hypertension complicating , childbirth, and the puerperium, unspecified as to episode of care Mixed anxiety and depressive disorder Dysthymic disorder documented in this encounter Care Teams Phosphatic Fertilizer Supervisor Relationship Specialty Start Date End Date Kenia Lawrence, [employer] [address] [place] [address] PCP - General Family Medicine 09/29/23 documented as of this encounter
--- OUTSIDE RECORDS SUMMARY | 2024-09-20 11:01 | XMS_ITS | Encounter Summary ---
Author Organization [facility] Address [facility] [place] [address] Care Team Providers Care Stock Car Driver Name Role Phone Melinda, Kenia Marilin CAMPBELL Primary Care Provider +1- [phone] Reason for Visit * Consultation (Routine) - Closed Specialty Diagnoses / Procedures Referred By Nellie t Referred To Contact Pre-Admission Testing Diagnoses Coronary artery vasospasm ICD (implantable cardioverter-defibrill ator), single, in situ Cardiac arrest Ej Zurita MD [facility] [place] [address] [facility] Pre [place]mit [place] [address] [place] [address] Referral ID Status Reason Start Date Expiration Date V isits Requested Visits Authorized [id number] Closed Consult Only 07/22/2024 07/22/2025 1 1 Encounter Details Date Type Department Care Team (Late st Contact Info) Description 08/24/2024 9:00 AM EST TH Visit (TeleHealth) [place] [address] Social History Tobacco Use Types Packs/Day Years Used Date Smoking Tobacco: Every Day Cigarettes 1 15 Smokeless Tobacco: Never Comments:Smokess 0.5 - 1 pac ks of cigarettes daily x 13 - 14 years. Alcohol Use Standard Drinks/Week Comments Not Currently 0 (1 standard drink = 0.6 oz pur e alcohol) [facility] Utilities Answer Date Recorded In the past 12 months has th e electric, gas, oil, or water [employer] threatened to shut off services in your [...] place to sleep or slept in a long term (including now)? No 03/02/2024 DH IPV Inpatient [...] AM EST Routine Obstetrics [place] [phone] Emili Cabrera MD [facility] [place] [address] 09/26/2024 6:00 PM EST Appointment [facility] [place] [phone] 10/16/2024 Hospital [place] [phone] Dudley Aguilar MD [facility] DR OBSTETRICS [place] [address] 11/08/2024 10:00 AM EST Hospital Encounter Non-[place] [phone] Arrived Scheduled Referrals Name Type Priority Associated Diagnoses Order Schedule Anesthesia Pre-Operative Evaluation Referral Outpatient Referral Routine Coronary artery vasospasm ICD (implantable cardioverter-defibr illator), single, in situ Cardiac arrest Ordered: 07/22/2024 documented as of this encounter Visit Diagnoses Not on filedocumented in this encounter Care Teams Stock Car Driver Relationship Specialty Start Date End Date Kenia Lawrence APRN [address] [place] [address] PCP - General Family Medicine 09/29/23 documented as of this encounter
--- OUTSIDE RECORDS SUMMARY | 2024-09-20 11:01 | XMS_ITS | Encounter Summary ---
Author Organization [facility] Address [facility] [place] [address] Care Team Providers Care Medical Sonographer Name Role Phone MelindaKenia ford ADRIAN Primary Care Provider +1- [phone] Reason for Referral * Psychiatric (Routine) - Authorized Specialty Diagnoses / Procedures Referred By Nellie mckeon Referred To Contact Psychiatry Diagnoses Cardiac arrest Chest discomfort Supervision of high risk in third trimester Kaila Castellanos MD [facility] DR OBSTETRICS [place] [address] Latosha Cobb MD [facility] [place] [address] Referral ID Status Reason Start Date Expiration Date Visits Requested Visits Authorized [id number] Authorized Consult, Test & Treat 08/31/2024 08/31/2025 1 1 Encounter Details Date Type Department Care Team (Late st Contact Info) Description 08/31/2024 11:45 AM EST Routine Obstetrics [place] [address] Kaila Castellanos MD [facility] OBSTETRICS [place] [address] GA: [id number] Social History Tobacco Use Types Packs/Day Years Used Date Smoking Tobacco: Every Day Cigarettes 1 15 Smokeless Tobacco: Never Tobacco Cessation:Ready to Q uit: Not Asked; Counseling Given: Not Answered Comments:Smokess 0.5 - 1 packs of cigarettes daily x 13 - 14 years. Alcohol Use Standard Drinks/Week Comments Not Currently 0 (1 standard drink = 0.6 oz pur e alcohol) [facility] Utilities Answer Date Recorded In the past 12 months has e [employer], gas, oil, or water company threatened to [...] place to sleep or slept in a nursing home (including now)? No 03/02/2024 DH IPV Inpatient [...] Sign Reading Time Taken Comments Blood Pressure 134/86 08/31/2024 10:45 AM EST Pulse - - Temperature - - Respiratory Rate - - Oxygen Saturation - - Inhaled Oxygen Concentration - - Weight 79.8 kg (176 lb) 08/31/2024 10:45 AM EST Height - - Body Mass Index 30.21 08/15/2024 11:00 AM EDT documented in this encounter Progress Notes * Alla Weinberg RN - 08/31/2024 11:45 AM EST Images from the original note were not included. NST today for chronic hypertension in : 08/31/2024 10:50 AM NST Fetus A HR (beats/min) 140 HR Variability moderate (amplitude range 6 to 25 bpm) HR Accelerations present HR Decelerations absent Contraction Frequency (Minutes) intermittent [place] Nonstress Test Interpretation Non-reactive Overall Impression Reassuring for gestational age Comments Total time on EFM: 60 minutes, not meeting criteria for reactive NST * Kaila Castellanos MD - 08/31/2024 11:45 AM EST FM felt, no LOF, no bleeding or anival. Has CP symptoms frequently and using nitroglycerine frequently, plans to see cardiology this week. No preeclampsia symptoms. C/o feeling fatigue. C/o depression on meds for anxiety but feels this is not managed well. C/o pelvic pressure/pulsations. US cephalic mild poly, appropriate growth 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 History of COVID-19 Z86.16 Cigarette smoker F17.210 [place] [employer] SQ ICD, single, in situ Z95.810 Recurrent major depressive episodes, moderate F33.1 Encounter for induction of labor Z34.90 Chronic hypertension in O10.919 NST 135 NR, no decels Limited bedside BPP 05/27 Cardiology f/u Refer psychiatry IV iron infusions Considering Lilleta IUD [facility] and [facility] Cont weekly NST Inquiring about delivery timing. Likely 37 weeks. I would deliver today F/u 1 week documented in this encounter Plan of Treatment Upcoming Encounters Date Type Department Care Team (Late st Contact Info) Description 09/21/2024 8:15 AM EST Routine Obstetrics [place] [address] Emili Cabrera MD [facility] [place] [address] 09/26/2024 6:[address] [facility] [place] [address] 10/16/2024 [place] [address] Dudley Aguilar MD [facility] DR OBSTETRICS [place] [address] 11/08/2024 10:00 AM EST Hospital Encounter Non-Invasive Cardiology Lab [facility] [place] [address] Arrived Scheduled Referrals Name Type Priority Associated Diagnoses Order Schedule Referral to Adult Psychiatry Outpatient Referral Routine Cardiac arrest Chest discomfort Supervision of high risk in third trimester Ordered: 08/31/2024 documented as of this encounter Visit Diagnoses Diagnosis Cardiac arrest High risk teen in third trimester Chest discomfort Other chest pain Supervision of high risk in third trimester Unspecified high-risk documented in this encounter Care Teams Medical Sonographer Relationship Specialty Start Date End Date Kenia Lawrence APRN [address] [place] [address] PCP - General Family Medicine 09/29/23 documented as of this encounter
--- OUTSIDE RECORDS SUMMARY | 2024-09-20 11:01 | XMS_ITS | Encounter Summary ---
Author Organization [facility] [place] [address] Care Team Providers Care Steel Barrel Reamer Name Role Phone Melinda, Kenia Marilin CAMPBELL Primary Care Provider +1- [phone] Encounter Details Date Type Department Care Team (Late st Contact Info) Description 08/13/2024 Telephone Cardiology at [address] [phone] Tiffany Moon RN Social History Tobacco Use Types Packs/Day Years Used Date Smoking Tobacco: Every Day Cigarettes 1 15 Smokeless Tobacco: Never Comments:Smokess 0.5 - 1 pac ks of cigarettes daily x 13 - 14 years. Alcohol Use Standard Drinks/Week Comments Not Currently 0 (1 standard drink = 0.6 oz pur e alcohol) [facility] Utilities Answer Date Recorded In the past 12 months has [facility] [employer], gas, oil, or water [employer] threatened to shut off services in your [...] place to sleep or slept in a group home (including now)? No 03/02/2024 DH IPV [...] Telephone Encounter - Tiffany Moon RN - 08/13/2024 3:32 PM EDT TC to Mrs Luque to let her know her prescription for Isordil is ready for mushroom picker. Mrs Luque asks for a follow up with Dr Zurita and reviewed Dr Zurita's, note with Aniya: Highly symptomatic: abdominal pain, chest pain (still hasn't received the nitrates despite multipleof us ordering them), dyspnea. I ordered a BNP and lipase/amylase for the dyspnea and abdominal pain. She told me someone told herthat her iron was low, and I can't see that, but maybe iron repletion would help with dypsnea. If BNP is elevated will arrange urgent TTE and visit. Told her to go to the ED for worsening symptoms over the weekend while awaiting nitrates and labs I ordered. //////////////////////////////////////////////////////////////// Mrs Luque states she knows she can call, or when to call 911, and seek emergency care. Mrs Luque does states she would like to schedule a follow up with Dr Zurita. Let her know it will be helpful for her to have her BNP lab drawn, per MD plan. Mrs uLque given Nurse Triage line, for any questions. The patient indicates understanding of these issues and agrees with the plan. Tiffany Moon RN (Jodie), BSN Cardiology Ambulatory [facility] * Telephone Encounter - Tiffany Moon RN - 08/13/2024 3:25 PM EDT TC to [facility] regarding Isordil 5 mg, per Dr Zurita. [facility] intake coordinator states patient's Isordil is ready for mushroom picker. Tiffany Moon RN (Jodie), BSN [facility] Amb[facility] documented in this encounter Plan of Treatment Upcoming Encounters Date Type Department Care Team (Late st Contact Info) Description 09/21/2024 8:15 AM EST Routine Obstetrics [place] [address] Emili Cabrera MD [facility] [place] [address] 09/26/2024 6:00 PM EST Appointment [facility] [place] [address] 10/16/2024 [place] [phone] Dudley Aguilar MD [facility] [address] OB[place] [address] 11/08/2024 10:00 AM EST Hospital Encounter Non-Invasive [place] [address] Arrived documented as of this encounter Visit Diagnoses Not on filedocumented in this encounter Care Teams Steel Barrel Reamer Relationship Specialty Start Date End Date Kenia Lawrence APRN [address] [place] [address] PCP - General Family Medicine 09/29/23 documented as of this encounter
--- OUTSIDE RECORDS SUMMARY | 2024-09-20 11:01 | XMS_ITS | Encounter Summary ---
Author Organization [facility] Address [facility] [place] [address] Care Team Providers Care Government Relations Director Name Role Phone MelindaKenia ford ADRIAN Primary Care Provider [phone]- [phone] Encounter Details Date Type Department Care Team (Late st Contact Info) Description 09/14/2024 9:15 AM EST Routine Obstetrics [place] [address] Yudi Oliveira MD [facility] DR OBSTET[place] [address] GA: [id number] Social History Tobacco Use Types Packs/Day Years Used Date Smoking Tobacco: Every Day Cigarettes 1 15 Smokeless Tobacco: Never Comments:Smokess 0.5 - 1 pac ks of cigarettes daily x 13 - 14 years. Alcohol Use Standard Drinks/Week Comments Not Currently 0 (1 standard drink = 0.6 oz pur e alcohol) [facility] Utilities Answer Date Recorded In the past 12 months has e [employer], gas, oil, or water [employer] threatened to shut off services in your [...] place to sleep or slept in a senior care (including now)? No 03/02/2024 DH IPV Inpatient [...] Sign Reading Time Taken Comments Blood Pressure 137/111 09/14/2024 9:49 AM EST Pulse - - Temperature - - Respiratory Rate - - Oxygen Saturation - - Inhaled Oxygen Concentration - - Weight 81.4 kg (179 lb 6.4 oz) 09/14/2024 8:50 A M EST Height - - Body Mass Index 30.79 08/15/2024 11:00 AM EDT documented in this encounter Progress Notes * Alla Weinberg RN - 09/14/2024 9:15 AM EST Aniya A Ene NST today for cHTN and AMA, mild polyhydramnios. Aniya reports abdominal discomfort with pelvic pressure/pain overnight, which kept her awake mostof the night. Continues to have have discomfort this morning, appears as uterine irritability on EFM, however patient visibly uncomfortable (tensing, breathing) every 1-5 minutes, abdomen palpates mild during thattime, lasting roughly 40-60 seconds. 09/14/2024 8:59 AM NST Fetus A HR (beats/min) 135 HR Variability moderate (amplitude range 6 to 25 bpm) HR Accelerations present;greater than/equal to 15 bpm;lasting at least 15 seconds HR Decelerations absent Contraction Frequency (Minutes) every 1-5 Nonstress Test Interpretation Reactive, >32 weeks: two 15 bpm accelerations lasting 15 seconds Overall Impression Reassuring for gestational age Comments Total time on EFM: 20 minutes * Yudi Oliveira MD - 09/14/2024 9:15 AM EST 35w3d BP 143/85 Wt 81.4 kg (179 lb 6.4 oz) LMP (LMP Unknown) BMI 30.79 kg/m?? Repeat 137/111 Reports frequent contractions. Good movement. No leaking fluid / bleeding. Pelvic pain. No symptoms suggesting preeclampsia. GBS collected. Cervical exam: posterior, soft, external os closed. Due to elevated blood pressure, and history of cardiac arrest, patient sent to [facility] for further evaluation. If persistent elevated blood pressure, recommend discussing with cardiology. If admitted for delivery, will need telemetry; will need magnet at bedside if CS due to implanted defibrillator * Griselda Frazier CCMA - 09/14/2024 9:15 AM EST Examination chaperoned by TORY Cuello. documented in this encounter Plan of Treatment Upcoming Encounters Date Type Department Care Team (Late st Contact Info) Description 09/21/2024 8:15 AM EST Routine Obstetrics [place] [phone] Emili Cabrera MD [facility] [place] [address] 09/26/2024 6:00 PM [place] [phone] 10/16/2024 [place] [phone] Dudley Aguilar MD [facility] DR OBST[place] [address] 11/08/2024 10:00 AM EST Hospital Encounter Non-[place] [phone] Arrived Scheduled Orders Name Type Priority Associated Diagnoses Orde r Schedule Hemogram Lab Routine High risk teen in third trimester Expected: 09/14/2024 (Approximate), Expires: 12/15/2024 Comprehensive metabolic panel Non-fasting Lab Routine High risk teen in third trimester Expected: 09/14/2024, Expires: 12/15/2024 Protein/Creatinine Ratio, urine Lab Routine High risk teen in third trimester Expected: 09/14/2024 (Approximate), Expires: 12/15/2024 Vaginitis/osis Panel ([facility]H/CGP) Microbiology Routine Itching in the vaginal area Ordered: 09/14/2024 documented as of this encounter Procedures Procedure Name Priority Date/Time Associated Diagnosis Comments GROUP B STREP PCR SCREEN Routine 09/14/2024 9:35 AM EST High risk teen in third trimester documented in this encounter Results * Group B Strep PCR Screen (09/14/2024 9:35 AM EST) Group B Strep by PCR Not Detected Not Detected 09/15/2024 8:48 AM EST [facility] Swab POOLED SPECIMEN FROM VAGINAL INTROITUS AND RECTAL SWAB / Unknown Non Blood Collection / Unknown 09/14/2024 9:35 AM EST 09/14/2024 12:00 PM EST E Luz Oliveira MD MICROBIOLOGY - NERAL ORDERABLES [facility] [place] [address] documented in this encounter Visit Diagnoses Diagnosis High risk teen in third trimester Itching in the vaginal area Pruritus of genital organs Supervision of high risk in third trimester Unspecified high-risk documented in this encounter Care Teams Government Relations Director Relationship Specialty Start Date End Date Kenia Lawrence APRN [address] [place] [address] PCP - General Family Medicine 09/29/23 documented as of this encounter
--- OUTSIDE RECORDS SUMMARY | 2024-09-20 11:01 | XMS_ITS | Encounter Summary ---
Author Organization [facility] [place] [address] Care Team Providers Care Director Of Application Development Name Role Phone Melinda Kenia Marilin CAMPBELL Primary Care Provider +1- [phone] Encounter Details Date Type Department Care Team (Latest Contact Info) Description 09/14/2024 Travel Social History Tobacco Use Types Packs/Day Years Used Date Smoking Tobacco: Every Day Cigarettes 1 15 Smokeless Tobacco: Never Comments:Smokess 0.5 - 1 pac ks of cigarettes daily x 13 - 14 years. Alcohol Use Standard Drinks/Week Comments Not Currently 0 (1 standard drink = 0.6 oz pur e alcohol) [facility] Utilities Answer Date Recorded In the past 12 months has e [employer], gas, oil, or water [email or web address] threatened to shut off services in your [...] place to sleep or slept in a mcc (including now)? No 03/02/2024 IPV Inpatient Questions [...] AM EST Routine Obstetrics [place] [address] Emili Cabrera MD [facility] [place] [address] 09/26/2024 6:00 PM EST Appointment [facility] Birthing [place] [phone] 10/16/2024 [place] [address] Dudley Aguilar MD [facility] OBSTETRICS [place] [address] 11/08/2024 10:00 AM EST Hospital Encounter Non-Invasive Cardiology Lab [place] [phone] Arrived documented as of this encounter Visit Diagnoses Not on filedocumented in this encounter Care Teams Director Of Application Development Relationship Specialty Start Date End Date Kenia Lawrence APRN [address] [place] [address] PCP - General Family Medicine 09/29/23 documented as of this encounter
--- OUTSIDE RECORDS SUMMARY | 2024-09-20 11:01 | XMS_ITS | Encounter Summary ---
Author Organization [facility] Address [facility] [place] [address] Care Team Providers Care Sewer And Cutter Finger Buff Material Name Role Phone MelindaKenia ford ADRIAN Primary Care Provider [phone]- [phone] Encounter Details Date Type Department Care Team (Latest Contact Info) Description 09/14/2024 9:54 AM [facility] - 09/14/2024 2:14 PM [facility] Hospital Encounter [place] [address] Dudley Aguilar MD [facility] [address] [place] [address] Discharge Disposition: Home Social History Tobacco Use Types Packs/Day Years Used Date Smoking Tobacco: Every Day Cigarettes 1 15 Smokeless Tobacco: Never Comments:Smokess 0.5 - 1 pac ks of cigarettes daily x 13 - 14 years. Alcohol Use Standard Drinks/Week Comments Not Currently 0 (1 standard drink = 0.6 oz pur e alcohol) [facility] Utilities Answer Date Recorded In the past 12 months has [employer], gas, oil, or water [employer] threatened to shut off services in your [...] place to sleep or slept in a detention (including now)? No 03/02/2024 DH IPV Inpatient [...] Sign Reading Time Taken Comments Blood Pressure 127/82 09/14/2024 12:51 PM EST Pulse 71 09/14/2024 12:51 PM EST Temperature 36.7 ??C (98.1 ??F) 09/14/2024 10:[address] Respiratory Rate 18 09/14/2024 10:35 AM EST Oxygen Saturation 98% 09/14/2024 12:19 PM EST Inhaled Oxygen Concentration - - Weight - - Height - - Body Mass Index - - documented in this encounter Discharge Instructions * Attachments The following attachments cannot be sent through Care Everywhere. * Labor ([place]) documented in this encounter Medications at Time [...] each 07/29/2022 fluticasone propionate (Flonase) 50 mcg/actuation [place], SuspensionIndications:al lergic rhinitis 1 spray by Each [...] as needed. documented as of this encounter Progress Notes * Ania Lindsay RN - 09/14/2024 2:12 PM EST Reviewed discharge info with patient, questions answered. Advised patient to call with any concernsand she verbalizes understanding. Reviewed emergency situations and when to call 911. Patient stable and ready for discharge. * Jules Valdez DO - 09/14/2024 10:40 AM EST OB Triage Note Patient name: Aniya Luque Date of : 1985 Date of visit: 09/14/2024 1:47 PM Aniya Luque is a 39 y.o. female with an NAZIA of 10/16/2024, by Other Basis who is at 35w3d weeks gestation. Chief Complaint: Elevated BP, contractions HPI: Patient notes feeling less movement over past couple of days, whereas previous felt movement constantly. She started feeling contractions since yesterday but initially mild. She had few episodes of loose stool overnight, nonwatery/nonbloody, then attended routine scheduled OB clinic appointment this morning where she was noted to have slightly elevated blood pressure. Her blood pressure was taken again at the end of the appointment, noted again to be elevated, and contractions were reported to be increasing in both severity and frequency, therefore sent to BP for further evaluation. At this time, reports intermittent contractions about every 3-5 minutes. She denies any LOF or bleeding. No recent fevers, chills. Feels SOB due to abdominal distention. Otherwise no difficulty breathing, no chest pain. No headache, vision changes. Movement: decreased Contractions: regular, every 3-5 minutes Leaking: None Bleeding: none Preeclampsia signs and symptoms: swelling of hands or face Physical Exam: Temp: [36.7 ??C (98.1 ??F)] Heart Rate: [71-95] Resp: [18] BP: (116-143)/(75-111) SpO2: -- Heart Rate from SpO2: [83 bpm] General: Appears uncomfortable secondary to contractions. HEENT: Normocephalic. Atraumatic. CV: Normal rate. Normal rhythm. No murmurs. Radial and DP pulses 2+ and equal bilaterally. Lungs: CTAB w/o wheezes, rales, or rhonchi. GI: Soft. Gravid. No focal tenderness. No guarding or rebound. MSK: Minimal peripheral edema bilaterally. No calf tenderness. Skin: Warm, dry. No rashes. Neuro: AAOx4. No facial asymmetry. No focal deficit. Cervix Exam: -Dilation: -Effacement: -Station: Station: -4 FHR Evaluation: Sterile Speculum: not indicated The following Labs were obtained Recent Results (from the past 12 hour(s)) Hemogram Result Value White Blood Cell 11.61 (H) Red Blood Cell 3.86 (L) Hemoglobin 10.5 (L) Hematocrit 32.3 (L) Mean Cell Volume 83.7 Mean Cell Hemoglobin 27.2 Mean Cell Hemoglobin Concentration 32.5 Platelet 352 Mean Platelet Volume 9.9 RDW Standard Deviation 46.6 (H) RDW coefficient of variation 15.9 (H) NRBC% auto 0.0 NRBC Absolute <0.01 Comprehensive metabolic panel Result Value Glucose 75 Blood Urea Nitrogen 10 Creatinine 0.78 Sodium 132 (L) Potassium 4.4 Chloride 100 Carbon Dioxide 21 (L) Anion Gap 11 Calcium 9.2 Protein, Total 7.1 Albumin 3.7 Aspartate Aminotransferase 11 Alanine Aminotransferase 13 Alkaline Phosphatase 152 (H) Bilirubin, Total 0.2 Est Glomerular Filtration Rate - Female 99 Fasting Status No Protein/Creatinine Ratio, urine Result Value Protein, Urine 15 (H) Creatinine, Urine 97 Protein / Creatinine Ratio, Urine 0.2 Assessment: 39 y.o. female with an 10/16/2024, by Other Basis who is at 35w3d gestation being evaluatedfor labor, Pre-eclampsia. Her is notable for: - h/o cardiac arrest d/t vasospasm (2021) s/p ICD - interrogated throughout , no shocks on most recent 07/05/2024 - LVEF 65% on most recent echo 05/05/2024 - taking amlodipine daily and nitrates prn - cHTN - isolated single umbilical artery Labor State: Not in labor. Heart Rate Assessment: Reactive and reassuring Plan: Labor management: Not in labor, discharge home Labs today reassuring. Show expected leukocytosis and baseline anemia during . Normal LFTsand elevated alk phos consistent with . Urine P:Cr 0.2. Normal blood pressures x3. Pre-eclampsia effectively ruled out. Cervical exam unchanged with closed Os. Reactive and reassuring FHT. Not in labor. Vaginosis swab performed in OB office this morning. Urinalysis collected and sent givenpatient's reported history of UTI treated with 7 day course Amoxicillin on 09/01 and patient reportof pelvic pressure, though patient denies any dysuria, frequency, or other change in urinary symptoms. Patient safe for discharge home. Feeling improved after 1L LR bolus, and states contractions are now less severe and less frequent. Return precautions given for labor and pre- eclampsia. Patient expressed her understanding of these. Jules Valdez, PGY1 Associated attestation - Dudley Aguilar MD - 09/14/2024 3:36 PM EST I have seen the patient and reviewed Dr. Valdez's above history and I agree with the details as written. The assessment and plan were formulated in discussion with me and I agree with them as documented. Dudley Aguilar MD 09/14/24 3:36 PM documented in this encounter Plan of Treatment Upcoming Encounters Date Type Department Care Team (Late st Contact Info) Description 09/21/2024 8:15 AM EST Routine Obstetrics [place] [address] Emili Cabrera MD [facility] [place] [address] 09/26/2024 6:00 PM EST Appointment [facility] [place] [address] 10/16/2024 Hospital [place] [address] Dudley Aguilar MD [facility] DR [place]ST[place] [address] 11/08/2024 10:00 AM EST Hospital Encounter Non-Invasive [place] [address] Arrived documented as of this encounter Procedures Procedure Name Priority Date/Time Associated Diagnosis Comments PROTEIN/CREATININE RATIO, URINE STAT 09/14/2024 11:35 AM EST URINALYSIS WITH REFLEX CULTURE STAT 09/14/2024 11:35 AM EST HEMOGRAM STAT 09/14/2024 10:27 AM EST COMPREHENSIVE METABOLIC PANEL STAT 09/14/2024 10:27 AM EST documented in this encounter Results * Urinalysis with reflex Culture (09/14/2024 11:35 AM EST) Glucose, Urine Dipstick Negative Negative 09/14/2024 3:38 PM [facility] Protein, Urine Dipstick Negative Negative 09/14/2024 3:38 PM [facility] Bilirubin, Urine Dipstick Negative Negative 09/14/2024 3:38 PM [facility] Comment:Clinical correlation required for positive Urine Bilirubin results as false positive may occur with some drugs and drug related products. If a false positive is suspected a serum total bilirubin should be considered if clinically indicated. Urobilinogen, Urine Dipstick Normal Normal, 0.2 mg/dL, 1.0 mg/dL 09/14/2024 3:38 PM [facility] pH, Urine (dipstick) 7.5 5.0 - 8.0 09/14/2024 3:38 PM [facility] Blood, Urine Dipstick Negative Negative 09/14/2024 3:38 PM [facility] Ketone, Urine Dipstick Negative Negative 09/14/2024 3:38 PM [facility] Nitrite, Urine Dipstick Negative Negative 09/14/2024 3:38 PM [facility] Leukocytes, Urine Dipstick Negative Negative 09/14/2024 3:38 PM [facility] Specific [place] Urine Automated 1.013 1.005 - 1.030 09/14/2024 3:38 PM [facility] Appearance, Urine Dipstick Clear Clear 09/14/2024 3:38 PM [facility] Color, Urine Dipstick Yellow Yellow, Dark Yellow 09/14/2024 3:38 PM [facility] CULTURE ADDED? 09/14/2024 3:38 PM [facility] Urine URINE SPECIMEN OBTAINED BY CLEAN CATCH PROCEDURE / Unknown Non Blood Collection / Unknown 09/14/2024:35 AM EST 09/14/2024 3:16 PM EST Dudley Aguilar MD URINE ORDERABLES Performing Organization Address City/[facility]/ZIP Co de Phone Number [facility] [place] [address] * (ABNORMAL) Protein/Creatinine Ratio, urine (09/14/2024 11:35 AM EST) Protein, Urine 15(H) 0 - 12 mg/dL 09/14/2024 12:19 PM EST [facility] Creatinine, Urine 97 mg/dL 09/14/2024 12:19 PM EST [facility] Protein / Creatinine Ratio, Urine 0.2 ratio 09/14/2024 12:19 PM EST [facility] Urine URINE SPECIMEN / Unknown Non Blood Collection / Unknown 09/14/2024 11:35 AM EST 09/14/2024 11:50 AM EST Dudley Aguilar MD URINE ORDERABLES Performing Organization Address City/[facility]/ZIP Co de Phone Number [facility] [place] [address] * (ABNORMAL) Comprehensive metabolic panel (09/14/2024 10:27 AM EST) Glucose 75 65 - 199 mg/dL 09/14/2024 11:05 AM [facility] Comment:Glucose Concentratio n >=200 mg/dL plus symptoms is consistent with Diabetes Mellitus. Blood Urea Nitrogen 10 8 - 18 mg/dL 09/14/2024 11:05 AM [facility] Creatinine 0.78 0.70 - 1.20 mg/dL 09/14/2024 11:05 AM EST [facility] Sodium 132(L) 135 - 145 mMol/L 09/14/2024 11:05 AM [facility] Potassium 4.4 3.5 - 5.0 mMol/L 09/14/2024 11:05 AM [facility] Chloride 100 98 - 107 mMol/L 09/14/2024 11:05 AM [facility] Carbon Dioxide 21(L) 22 - 31 mMol/L 09/14/2024 11:05 AM [facility] Anion Gap 11 5 - 15 mMol/L 09/14/2024 11:05 AM [facility] Calcium 9.2 8.5 - 10.5 mg/dL 09/14/2024 11:05 AM [facility] Protein, Total 7.1 6.1 - 8.0 g/dL 09/14/2024 11:05 AM [facility] Albumin 3.7 3.2 - 5.2 g/dL 09/14/2024 11:05 AM [facility] Aspartate Aminotransferase 11 <=30 unit/L 09/14/2024 11:05 AM [facility] Alanine Aminotransferase 13 0 - 30 unit/L 09/14/2024 11:05 AM [facility] Alkaline Phosphatase 152(H) 35 - 105 unit/L 09/14/2024 11:05 AM [facility] Bilirubin, Total 0.2 <=1.3 mg/dL 09/14/2024 11:05 AM [facility] Est Glomerular Filtration Rate - Female 99 mL/min/1. 73 m?? 09/14/2024 11:05 AM [facility] Comment: This patient's estimated GFR was [...] eGFR Calculator [employer] Fasting Status No 09/14/2024 11:05 AM [facility] Blood VENOUS BLOOD SPECIMEN / Unknown Venipuncture / Unknown 09/14/2024 10:27 AM EST 09/14/2024 10:33 AM EST Dudley Aguilar MD CHEMISTRY ORDERABLE S [facility] [place] [address] * (ABNORMAL) Hemogram (09/14/2024 10:27 AM EST) White Blood Cell 11.61(H) 4.00 - 9.50 x10(3)/mc L 09/14/2024 10:41 AM [facility] Red Blood Cell 3.86(L) 4.00 - 5.21 x10(6)/mc L 09/14/2024 10:41 AM [facility] Hemoglobin 10.5(L) 11.7 - 15.5 g/dL 09/14/2024 10:41 AM [facility] Hematocrit 32.3(L) 35.7 - 45.8 % 09/14/2024 10:41 AM [facility] Mean Cell Volume 83.7 82.6 - 94.4 fL 09/14/2024 10:41 AM [facility] Mean Cell Hemoglobin 27.2 27.1 - 32.0 pg 09/14/2024 10:41 AM [facility] Mean Cell Hemoglobin Concentration 32.5 31.7 - 35.0 g/dL 09/14/2024 10:41 AM [facility] Platelet 352 145 - 357 x10(3)/mc L 09/14/2024 10:41 AM [facility] Mean Platelet Volume 9.9 7.6 - 12.9 fL 09/14/2024 10:41 AM [facility] RDW Standard Deviation 46.6(H) 37.0 - 46.0 fL 09/14/2024 10:41 AM [facility] RDW coefficient of variation 15.9(H) 11.5 - 14.1 % 09/14/2024 10:41 AM [facility] NRBC% auto 0.0 % 09/14/2024 10:41 AM EST [facility] NRBC Absolute <0.01 <0.01 x10(3)/mc L 09/14/2024 10:41 AM EST [facility] Blood VENOUS BLOOD SPECIMEN / Unknown Venipuncture / Unknown 09/14/2024 10:27 AM EST 09/14/2024 10:33 AM EST Dudley Aguilar MD HEMATOLOGY ORDERABL ES [facility] [place] [phone] documented in this encounter Visit Diagnoses Not on filedocumented in this encounter Administered Medications Inactive Administered Medications - up to 3 most recent administrations Medication Order MAR Action Action Date Dose Rate Site lactated Ringers 1,000 mL IV bolus Intravenous, ONCE, 1 dose, On Fri09/14/24 at 1100 New Bag 09/14/2024 10:42 AM EST documented in this encounter Active and Recently Administered Medications Times are shown in EST. Scheduled Medication Order 09/12/2024 09/13/2024 09/14/2024 lactated Ringers 1,000 mL IV bolus (COMPLETED) Intravenous, ONCE, 1 dose, On Fri09/14/24 at 1100 1042 (New Bag - Prov ider: Valarie Butler RN) documented in this encounter Care Teams Sewer And Cutter Finger [employer] Material Relationship Specialty Start Date End Date Kenia Lawrence APRN [address] [place] [address] PCP - General Family Medicine 09/29/23 documented as of this encounter
--- OUTSIDE RECORDS SUMMARY | 2024-09-20 11:01 | XMS_ITS | Encounter Summary ---
Author Organization [facility] Address [facility] [place] [address] Care Team Providers Care Internet Researcher Name Role Phone Kenia Lawrence SENIOR MECHANICAL PROJECT ENGINEER Primary Care Provider [phone]- [phone] Encounter Details Date Type Department Care Team (Late st Contact Info) Description 08/24/2024 11:59 PM EST Anesthesia [place] [address] Ginette Lorenz MD [facility] [place] [address] Anesthesia Record Procedure Summary Procedure Name Responsible Anesthesiologist Anesthesia Start Time Anesthesia Stop Time AMB REFERRAL TO ANETHESIA PRE-OPERATIVE EVALUATION Events No events on file. Meds * Agents No agents on file. * Blood No blood administrations on file. Lines, Drains, and Airways No LDAs on file. documented in this encounter Social History Tobacco Use Types Packs/Day Years Used Date Smoking Tobacco: Every Day Cigarettes 1 15 Smokeless Tobacco: Never Comments:Smokess 0.5 - 1 pac ks of cigarettes daily x 13 - 14 years. Alcohol Use Standard Drinks/Week Comments Not Currently 0 (1 standard drink = 0.6 oz pur e alcohol) [facility] Utilities Answer Date Recorded In the past 12 months has e [employer] gas, oil, or water [employer] threatened to shut off services in your [...] place to sleep or slept in a jail (including now)? No 03/02/2024 [facility] IPV Inpatient [...] AM EDT documented as of this encounter OR Notes * Anesthesia Preprocedure Evaluation - Lexie Adams MD - 08/24/2024 8:51 AM EST Pre-Anesthesia Evaluation for: Aniya Luque a 39 y.o. female. Patient Active Problem List Diagnosis Date Noted Chronic hypertension in 07/31/2022 Encounter for induction of labor 07/25/2022 [place] [employer] SQ ICD, single, in situ 11/12/2021 Cigarette smoker 11/11/2021 Coronary artery vasospasm 11/05/2021 History of COVID-19 11/05/2021 Cardiac arrest 11/04/2021 Gastroesophageal reflux disease 11/06/2020 Borderline personality disorder 05/23/2020 Post-traumatic stress disorder, chronic 05/23/2020 Anxiety disorder, unspecified 05/22/2020 Chest pain 01/17/2016 Skin disease 03/24/2015 Depression 08/03/2014 Asthma 08/03/2014 Hypertension 08/03/2014 Tachycardia 08/03/2014 Recurrent major depressive episodes, moderate 07/03/2009 Past Medical History: Diagnosis Date Anorexia Anxiety 08/03/2014 Asthma 08/03/2014 Flaherty's palsy Chest pain 01/17/2016 ETT 2013- negative ST III Echo 2013 Normal LV size and function, trivial TR, mild PI Coronary artery vasospasm 11/05/2021 Depression Headache History of COVID-19 11/05/2021 Hypertension 08/03/2014 Past Surgical History: Procedure Laterality Date DILATION AND CURETTAGE OF UTERUS x2 PRO UPPER GI ENDOSCOPY, DIAGNOSTIC N/A 01/09/2021 EGD, UPPER GI ENDOSCOPY performed by Dudley Alva MD at [facility] ENDOSCOPY Social History Tobacco Use Smoking status: Every Day Current packs/day: 1.00 Average packs/day: 1 pack/day for 15.0 years (15.0 ttl pk-yrs) Types: Cigarettes Smokeless tobacco: Never Tobacco comments: Smokess 0.5 - 1 packs of cigarettes daily x 13 - 14 years. Substance Use Topics Alcohol use: Not Currently Social History Substance and Sexual Activity Drug Use Not Currently Comment: CBD as needed Allergies Allergen Reactions Augmentin [Amoxicillin-Pot Clavulanate] Rash Unsure if allergic Clavulanic Acid Other Reaction(s): GI Ipratropium Other (See Comments) Morphine Other (See Comments) Cannot recall Seroquel [Quetiapine] Other (See Comments) Made head feel loopy. Medications: MAR and/or home medications have been reviewed. Physical Exam: Preprocedure Vitals Current as of 08/24/24 0851 No BP, pulse, respiration, SpO2, or temperature recorded. Height: Weight: BMI: IBW: Anesthesia Physical Exam Last Filed Perioperative Cognitive Screening None Anesthesia Plan Anesthesia Screening Note: Date and Time of Entry: 08/24/2024 8:51 AM Entered By: Lexie Adams MD Screening Visit Type: Telephone Call Findings, Assessment and Plan: Aniya Luque is a 39 y.o.G6P female at 32w3d who was referred to the [facility] due to a history of multiple VF arrests in October 2021. She was seen by [facility] for her last in 2021 Per PCC Note 05/14/2022 Initial event occurred on 11/04/21 with a VF arrest witnessed by her fiance, who performed CPR. Extensive resuscitation attempt resulted in ROSC. On day of admission, she had another witnessed arrest(junctional rhythm with ST elevations to VT then VF) requiring defibrillation x3 and amiodarone bolus + gtt. She underwent an emergent cardiac workup, including a catheterization, which showed no obstructive L-sided CAD. However, when the L main coronary was injected, another VF arrest occurred andROSC was again obtained. Given that the arrest occurred following injection, her arrests are presumed due to severe coronary vasospasms. Cardiac workup otherwise demonstrated no sign of myocardial damage, cardiomyopathy, or WMAs. LVEF was found to be 68%. Post-arrest protocol included targeted-temperature management. A left-sided subcutaneous ICD was placed and has not fired since this initial hospitalization She is followed closely by Cardiology and EP. She was seen by Dr. Zurita for High Risk Cardiac OB visit on 08/13/24. No ICD shocks, continues on amlodipine for coronary vasospasm and taking SL NTGa couple times per week for vague chest pain. She reports significant anxiety and more SL NTG usein than outside of . PMH is otherwise notable for Active smoker - daily smoker Asthma - daily inhaler prescribed (does not use) and PRN albuterol HTN - GERD - borderline personality disorder - PTSD, anxiety, depression - her psychiatric disease significantly impacts her function Pertinent allergies: Penicillin (rash) Morphine (patient not aware of allergy/reaction but has tolerated other PO opioids including hydrocodone but reports significant pruritis) Anesthesia history: Denies prior GA Denies FH of problems with anesthesia. She has epidurals for prior pregnancies without issue. Last epidural: one attempt with redirection,CLEM at 6 cm, worked well. Functional status: >4 METS TTE 04/2024: -Left ventricular systolic function is normal. Left ventricular ejection fraction is estimated visually at 65%. There are no segmental wall motion abnormalities. -The right ventricle is of normal size. Right ventricular systolic function is normal. -Normal valves. -Compared with the previous echo performed on 03/14/22, there is no significant change. Assessment/plan: Aniya Luque is a 39 y.o.G6P female at 32w3d with VF arrest in October 2021 presumed due to severe coronary vasospasm continues on amlodipine, SL NTG, with subcutaneous ICD in place with no defibrillations required. She is followed by Cardiology and has seen Cardiac OB this . Stable from CV perspective, normal EF, adequate functional status. She reports significant increase in her anxiety in the last few weeks. She understands that her risk of recurrent vasospasm is increased by her continued smoking, and shereports that she is trying to quit, but still currently smokes daily. Her last delivery proceeded smoothly and at this time, recommend proceeding with her upcoming delivery in a similar manner. Discussed our recommendation for early epidural placement to achieve gradual neuraxial anesthesia without significant hemodynamic swings seen with either rapid neuraxial or with significant pain. Will reach out to Dr. Zurita regarding plan for subq ICD; either to leave it on or to have EP turn it off for labor with Zoll back up readily available. Regardless, we will plan to have a magnet available in the OR and the Zoll easily accessible should it be necessary for floor or OB delivery. Lexie Adams MD 08/24/24 9:32 AM Associated attestation - Ginette Lorenz MD - 08/25/2024 8:32 AM EST Attending Assessment: I personally reviewed the patient's EMR and discussed the history, current clinical status, and perioperative management with the resident, and agree with the assessment and plan discussed. No further optimization or workup warranted at this point. Will discuss with cardiology advantages/disadvantages of deactivating ICD in labor. Ginette Lorenz MD Attending Anesthesiologist Pager [phone] 08/24/24 Update: After discussion with cardiology, will leave SCD on for labor as it is unlikely to detect uterine myopotentials as a malignant arrhythmia. Plan for telemetry in labor. Will have magnet available in OR. Ginette Lorenz MD Attending Anesthesiologist Pager [phone] 08/25/24 8:32 AM documented in this encounter Plan of Treatment Upcoming Encounters Date Type Department Care Team (Late st Contact Info) Description 09/21/2024 8:15 AM EST Routine Obstetrics [place] [address] Emili Cabrera MD [facility] [place] [address] 09/26/2024 6:00 PM EST Appointment [facility] [place] [address] 10/16/2024 Hospital [place] [address] Dudley Aguilar MD [facility] OBSTETRICS [place] [address] 11/08/2024 10:00 AM EST Hospital Encounter Non-Invasive Cardiology Lab [facility] [place] [address] Arrived documented as of this encounter Visit Diagnoses Not on filedocumented in this encounter Care Teams Internet Researcher Relationship Specialty Start Date End Date Kenia Lawrence APRN [address] [place] [address] PCP - General Family Medicine 09/29/23 documented as of this encounter
--- OUTSIDE RECORDS SUMMARY | 2024-09-20 11:01 | XMS_ITS | Encounter Summary ---
Author Organization [facility] Address [facility] [place] [address] Care Team Providers Care Binder Lockstitch Name Role Phone MelindaKenia ford ADRIAN Primary Care Provider [phone]- [phone] Encounter Details Date Type Department Care Team (Late st Contact Info) Description 09/03/2024 1:00 PM EST TH Visit (TeleHealth) Cardiology at [address] [address] Ej Zurita MD [facility] [place] [address] Subcutaneous defibrillator implanted 11/12/2021; History of cardiac arrest; Chest discomfort Social History Tobacco Use Types Packs/Day Years Used Date Smoking Tobacco: Every Day Cigarettes 1 15 Smokeless Tobacco: Never Comments:Smokess 0.5 - 1 pac ks of cigarettes daily x 13 - 14 years. Alcohol Use Standard Drinks/Week Comments Not Currently 0 (1 standard drink = 0.6 oz pur e alcohol) [facility] Utilities Answer Date Recorded In the past 12 months has e [employer], gas, oil, or water [employer] threatened to shut off services in your [...] Progress Notes * Ej Zurita MD - 09/03/2024 1:00 PM EST Images from the original note were not included. Formerly [facility] [place] [address] [address] CARDIOLOGY OUTPATIENT PROGRESS NOTE PRIMARY CARE PROVIDER: Kenia Lawrence APRN REFERRING PROVIDER: Kenia Lawrence PROBLEM LIST: #s/p ICD #h/o cardiac rest 2/2 coronary vasospasm #tobacco use #chronic chest pain: not definitively ischemic in origin Subjective: Patient ID: Aniya Luque is a 39 y.o. female here for follow up in . HPI: Summary: Aniya has a [...] Estimated Date of Delivery: 10/16/24 Currently almost 34 weeks . Last visit: Having a lot of symptoms. Dypsnea, abdominal pain, chest pain. Sucralfate did not help a lot. Isordil has not been picked up. + heart burn, mid chest, up and around the shoulders, random chest discomfort, not associated with exertion, lasting couple minutes, sometimes off and on throughout the day and using about 2SLN a day. + 7/10 abdominal pain/stiffness +joint pain, difficulty ambulating due to pelvic pain +again tried adding nitrates Today: Children sick, transitioned to TH. Feels like crap Concerns include inability to sleep, discomfort, weakness, feeling like she's going to pass out in the middle of the day, feeling takes over an hour to pass with deep breathing; feels worse after eating or drinking, feeling nausea GERD-vomiting improves the symptom Leg and hips feel like jello longterm through the day Chest pain: Mid chest, pain in the middle of her left breast which does not respond to palpitation,she is still afraid to take the nitrates. Using 4-5 SLN per week. Interrogate device: Catchoom no shocks on interrogation via EP service [...] Exercise: Goes on walks with her children Medications: ondansetron ODT (Zofran-ODT) 4 mg disintegrating tablet famotidine (Pepcid) 20 mg tablet nitroGLYcerin (Nitrostat) 0.4 mg sublingual tablet ferrous sulfate (FeroSul) 325 mg (65 mg iron) tablet isosorbide dinitrate (Isordil) 5 mg tablet sucralfate (Carafate) 100 mg/mL Suspension diazePAM (Valium) 2 mg tablet amLODIPine (Norvasc) 10 mg tablet meclizine (Antivert) 25 mg chewable tablet Antacid-[place] 200-200-20 mg/5 mL Suspension acetaminophen (Tylenol) 325 mg Tablet polyethylene glycoL (Miralax) 17 gram Powder in Packet fluticasone propionate (Flonase) 50 mcg/actuation [place], Suspension cetirizine (ZyrTEC) 10 mg Tablet fluticasone propionate (Flovent HFA) 110 mcg/actuation HFA Aerosol Inhaler ipratropium-albuteroL (Duoneb) 0.5 mg-3 mg(2.5 mg base)/3 mL Solution for Nebulization albuterol 90 mcg/actuation HFA Aerosol Inhaler calcium carbonate (TUMS) 200 mg calcium (500 mg) Tablet, Chewable No current facility-administered medications for this visit. Details of her initial hospitalization and course: Hospitalized 11/04-. She had a witnessed VF cardiac arrest with bystander CPR ( her fijoel Root) and ROSC after extensive resuscitation. Targeted [...] June -Partner recently incarcerated Objective: PHYSICAL EXAM: Telehealth Labs: Lab Results Component Value Date WBC 11.61 (H) 09/14/2024 WBC 15.46 (H) 08/15/2024 WBC 11.33 (H) 08/09/2024 WBC 10.2 (H) 04/23/2024 WBC 9.3 10/20/2022 WBC 11.0 (H) 10/05/2022 HGB 10.5 (L) 09/14/2024 HGB 9.8 (L) 08/15/2024 HGB 9.5 (L) 08/09/2024 HGB 12.0 04/23/2024 HGB 14.0 10/20/2022 HGB 14.0 10/05/2022 PLATELET 352 09/14/2024 PLATELET 309 08/15/2024 PLATELET 324 08/09/2024 PLATELET 264 04/23/2024 PLATELET 214 10/20/2022 PLATELET 247 10/05/2022 NA 132 (L) 09/14/2024 NA 135 08/15/2024 NA 138 04/23/2024 NA 136 10/20/2022 NA 141 10/05/2022 K 4.4 09/14/2024 K 3.9 08/15/2024 K 3.6 04/23/2024 K 4.1 10/20/2022 K 4.1 10/05/2022 CL 100 09/14/2024 CL 100 08/15/2024 CL 99 04/23/2024 CL 104 10/20/2022 CL 105 10/05/2022 CO2 21 (L) 09/14/2024 CO2 21 (L) 08/15/2024 CO2 23 04/23/2024 CO2 22 10/20/2022 CO2 25 10/05/2022 BUN 10 09/14/2024 BUN 10 08/15/2024 BUN 9 04/23/2024 BUN 13 10/20/2022 BUN 12 10/05/2022 CREATININE 0.78 09/14/2024 CREATININE 0.76 08/15/2024 CREATININE 0.94 04/23/2024 CREATININE 1.09 10/20/2022 CREATININE 0.86 10/05/2022 TRIG 130 11/04/2021 Lab Results Component Value Date PROBNP 125 (H) 08/15/2024 Lab Results Component Value Date AMYLASE 100 08/15/2024 Lab Results Component Value Date LIPASE 20 08/15/2024 Assessment: Aniya Luque is a 39 y.o. [...] pain, anxiety, poor po intake. Plan: Reporting a lot of symptoms, none of which are definitively cardiac. Last visit ordered BNP, amylase, lipase for local labs to evaluate dypsnea and abdominal pain respectively which were all normal. Continue amlodipine 10 mg daily, sucralfate 1mg TID for heart burn Again asked to try the isordil for the chest pain. SLN PRN No shocks on ICD. We should continue interrogating her device throughout her . Delivery timing to be determined by her obstetrics team, but feeling really overwhelmed/tearful about the current state OB planning 37 or sooner per latest notes. [facility] Her subcutaneous ICD is unlikely to detect uterine myopotentials. I think you could leave her tachytherapy on and put her on telemetry during labor to monitor for VT and NSVT RTC 3 months No follow-ups on file. Thank you for [...] procedures ?referring and communicating with other health director career services (when not separately reported) ?documenting clinical information in the electronic or other health record ?independently interpreting results (not separately reported) and communicating results to the patient/family/caregiver ?care coordination (not separately reported) documented in this encounter Plan of Treatment Upcoming Encounters Date Type Department Care Team (Late st Contact Info) Description 09/21/2024 8:15 AM EST Routine Obstetrics [place] [address] Emili Cabrera MD [facility] [place] [address] 09/26/2024 6:00 PM EST Appointment [facility] [place] [address] 10/16/2024 [place] [address] Dudley Aguilar MD [facility] DR OBSTETRICS [place] [address] 11/08/2024 10:00 AM EST Hospital Encounter Non-Invasive [place] [address] Arrived documented as of this encounter Visit Diagnoses Diagnosis Subcutaneous defibrillator implanted 11/12/2021 History of cardiac arrest Personal history of sudden cardiac arrest Chest discomfort Other chest pain documented in this encounter Care Teams Binder Lockstitch Relationship Specialty Start Date End Date Kenia Lawrence APRN [address] [place] [address] PCP - General Family Medicine 09/29/23 documented as of this encounter
--- OUTSIDE RECORDS SUMMARY | 2024-09-20 11:01 | XMS_ITS | Clinical Summary ---
Author Organization [facility] Address [facility] [place] [address] Care Team Providers Care Facility Maintenance Worker Name Role Phone MelindaKenia ford ADRIAN Primary Care Provider [phone] Allergies Active Allergy Reactions Criticality Noted Date Comments Amoxicillin-Pot Clavulanate Rash High 05/22/2020 Unsure if allergic Clavulanic Acid High 10/09/2022 Other Reaction(s): GI Ipratropium Other (See Comments) 10/09/2021 Morphine Other (See Comments) Low 03/30/2014 Cannot recall Quetiapine Other (See Comments) Low 03/30/2014 Made head feel loopy. Medications Medication Sig Dispensed Refills Start Date End Date Status calcium carbonate (TUMS) 200 mg calcium (500 mg) Tablet, Chewable Take 1 tablet by mouth as needed. Active albuterol 90 mcg/actuation HFA Aerosol Inhaler Inhale 2 puffs into the lungs every 4 hours as needed for Wheezing. Use with spacer Active cetirizine (ZyrTEC) 10 mg Tablet TAKE ONE TABLET BY MOUTH EVERY DAY 08/16/2021 Active fluticasone propionate (Flovent HFA) 110 mcg/actuation HFA Aerosol Inhaler Every 12 hours. 07/25/2021 Acti ve ipratropium-albutero L (Duoneb) 0.5 mg-3 mg(2.5 mg base)/3 mL Solution for Nebulization Every 6 hours. 12/29/2017 Active fluticasone propionate (Flonase) 50 mcg/actuation [place], SuspensionIndication s:allergic rhinitis 1 spray by Each Nare route nightly. Substitute OTC if needed Indications: inflammation of the nose due to an allergy 16 g 1 11/16/2021 Active acetaminophen (Tylenol) 325 mg Tablet Take 3 tablets by mouth every 6 hours as needed for Pain. 30 tablet 1 07/29/2022 Active polyethylene glycoL (Miralax) 17 gram Powder in Packet Take 17 g by mouth daily. 14 each 07/29/2022 Active Antacid-Antigas 200-200-20 mg/5 mL Suspension COMBINE 10 MLS WITH LIDOCAINE ORALLY THREE TIMES A DAY Strength: 200-200-20 mg/5 mL 355 mL 1 10/31/2022 Active meclizine (Antivert) 25 mg chewable tablet 1/2 tablet as needed Orally up to three times a day for 7 days 07/31/2023 Active amLODIPine (Norvasc) 10 mg tablet Take 1 tablet by mouth daily. 90 tablet 3 09/09/2023 Active diazePAM (Valium) 2 mg tablet Take 1 tablet by mouth Three Times Daily for DHE. 02/19/2024 Active sucralfate (Carafate) 100 mg/mL Suspension Take 10 mLs by mouth 3 times daily. 420 mL 07/15/2024 Active isosorbide dinitrate (Isordil) 5 mg tabletIndications:Ch est discomfort Take 1 tablet by mouth 3 times daily as needed. 30 tablet 3 08/09/2024 Active ferrous sulfate (FeroSul) 325 mg (65 mg iron) tablet Take 1 tablet by mouth daily. 30 tablet 12 08/13/2024 Active ondansetron ODT (Zofran-ODT) 4 mg disintegrating tablet Take 1 tablet by mouth every 8 hours as needed for Nausea. 10 tablet 08/15/2024 Active famotidine (Pepcid) 20 mg tablet Take 1 tablet by mouth 2 times daily. 60 tablet 3 08/15/2024 Active nitroGLYcerin (Nitrostat) 0.[address] 1 tablet under the tongue every 5 minutes as needed for Chest pain. 30 tablet 11 08/15/2024 Active Active Problems Problem Noted Date Diagnosed Date Other specified anemias 09/09/2024 Chronic hypertension in 07/31/2022 Assessment & Plan (10/31/2022 3:17 PM EST): BP in range after repeat measure C/o dizziness, will go back to amlodipine to 2.5 mg daily Encounter for induction of labor 07/25/2022 A[employer]erman S[employer] SQ ICD, single, in situ 022 Overview (11/12/2021): Pulse generator: Neema MRI S-ICD Pulse Generator Model A219 Serial Number [id number] Implanted 11/12/21 Ventricular electrode: SQ electrode Model 3501 Bipolar Serial Number [id number] Implanted 11/12/21 Assessment & Plan (10/31/2022 3:18 PM EST): Arrange for ICD check Assessment & Plan (03/26/2022 5:09 PM EDT): Today, she is wearing a tight bra which presses on the device Some tenderness when pressing on the pocket. 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 There did not appear to have been myocardial damage nor cardiomyopathy after her arrest. LVEF 68% without RWMA. ?She has a sub-Q ICD which has not fired. ??And was counseled extensively to quit smoking.? Assessment & Plan (03/26/2022 11:13 AM EDT): VF arrest in the setting of possible coronary spasm Most recent echo 02/2022 showed normal study with normal ventricular function. CP poorly defined, relieved by SL nitro Closely monitor Gastroesophageal reflux disease 11/06/2020 Overview (11/06/2020): Added automatically from request for surgery [id number] Borderline personality disorder 05/23/2020 Post-traumatic stress disorder, chronic 05/23/20 Anxiety disorder, unspecified 05/22/2020 Overview (05/25/2020): The patient is a 34-year-old woman who presented with worsening anxiety surrounding nonspecific somatic complaints such as full body tingling. She has a number of existing medical issues such as HTN, asthma, and GERD, the symptoms of which (e.g. heartburn, cough) tend to provoke her anxiety. Cardiac Arrest Due to Vasospasm 01/17/2016 Overview (09/08/2024): ETT 2013- negative ST III Echo 2013 Normal LV size and function, trivial TR, mild PI LVEF 65% without RWMA 04/2024. She has a sub-Q ICD which has not fired and she has not had any ventricular arrhythmia detected. Continue amlodipine 10 mg daily, sucralfate 1mg [...] per latest notes. Delivery location to be [facility] birthing pavilion Assessment & Plan (10/31/2022 3:17 PM EST): Non-cardiac based on symptoms Observe Assessment & Plan (07/09/2022 1:52 PM EDT): Symptoms are non-cardiac reassurance Assessment & Plan (05/14/2022 3:20 PM EDT): On and off chest discomfort Combination of anxiety, PTSD and possible coronary spasm. C/o more dizziness at 25 weeks gestation Will decrease CCB (norvasc to 2.5 mg bid) Skin disease 03/24/2015 Depression 08/03/2014 Asthma 08/03/2014 Overview (08/05/2014): Rx PRN albuterol Pulmonary workup negative 2007 (in [facility]) Hypertension 08/03/2014 Overview (08/05/2014): Onset 2013, variable BP highs of 160-170 systolic, then normal Assessment & Plan (05/14/2022 3:21 PM EDT): Monitor home BP Assessment & Plan (03/26/2022 11:17 AM EDT): BP good in office Tachycardia 08/03/2014 Recurrent major depressive episodes, moderate Estimated Date of Delivery Comme nts Yes 10/16/2024 Based on Other B asis Encounters Date Type Department Care Team Description 09/14/2024 9:54 AM EST - 09/14/2024 2:14 PM EST Hospital Encounter Birthing [place] [phone] Dudley Aguilar MD Discharge Disposition: Home 09/14/2024 9:15 AM EST Routine Obstetrics and Gynecology at [place] [id number] Yudi Oliveira MD [place]: 35w3d 09/14/2024 Travel 09/09/2024 Orders Only Obstetrics [place] [phone] Floyd Wang MD 09/03/2024 1:00 PM EST TH Visit (TeleHealth) Cardiology at [place] [phone] Ej Zurita MD Subcutaneous defibrillator implanted 11/12/2021; History of cardiac arrest; Chest discomfort 08/31/2024 11:45 AM EST Routine Obstetrics and Gynecology at [place] [address] Kaila Castellanos MD GA: 33w3d 08/31/2024 9:30 AM EST - 08/31/2024 11:59 PM EST Hospital Encounter Radiology at [place] [address] Lexie Lizarraga MD Chronic hypertension in Discharge Disposition: Home 08/31/2024 Travel 08/27/2024 Telephone Cardiology at [place] [address] Tiffany Moon RN 08/24/2024 11:59 PM EST Anesthesia Event Same Day at [place] [address] Ginette Lorenz MD 08/24/2024 9:00 AM EST TH Visit (TeleHealth) Same Day at [place] [address] 08/23/2024 10:00 AM EST Routine Obstetrics and Gynecology at [place] [address] Romana Torres MD GA: 32w2d 08/23/2024 Travel 08/15/2024 10:45 AM EDT - 08/15/2024 2:55 PM EDT Hospital Encounter [place] [phone] Janeth uQintana MD Chest pain, unspecified type; Coronary artery vasospasm; Gastroesophageal reflux disease, unspecified whether esophagitis present; Chronic hypertension in ; Cardiac arrest; Diarrhea, unspecified type Discharge Disposition: Home 08/15/2024 Orders Only Obstetrics and Gynecology at [place] [phone] Jane Bejarano MD 08/15/2024 Telephone Obstetrics and Gynecology at [place] [phone] Renetta Mariee MD 08/13/2024 2:20 PM EDT TH Visit (TeleHealth) Cardiology at [place] [phone] Ej Zurita MD History of cardiac arrest; Dyspnea, unspecified type 08/13/2024 Orders Only Obstetrics and Gynecology at [place] [phone] Lexie Lizarraga MD Anemia during in third trimester 08/13/2024 [place] [phone] Tiffany Moon RN 08/10/2024 10:00 AM EDT - 08/10/2024 11:59 PM EDT Hospital Encounter Non-Invasive Cardiology Lab [place] [phone] Discharge Disposition: Home 08/09/2024 10:30 AM EDT Clinical Support Obstetrics and Gynecology at [place] [phone] 30 weeks gestation of 08/09/2024 10:00 AM EDT Office Visit Obstetrics and Gynecology at [place] [phone] Lexie Lizarraga MD Chronic hypertension in ; Chest discomfort 08/09/2024 8:54 AM EDT - 08/09/2024 11:59 PM EDT Hospital Encounter Radiology at [place] [phone] Kaila Castellanos MD Chronic hypertension in Discharge Disposition: Home 08/09/2024 8:35 AM EDT Laboratory Appointment Lab [address] [place] [address] Chronic hypertension in 08/09/2024 Travel 07/28/2024 11:15 AM EDT Routine Obstetrics and Gynecology at [place] [phone] Kaila Castellanos MD GA: 28w4d 07/28/2024 Travel 07/22/2024 Orders Only Cardiology at [address] [phone] Ej Zurita MD Coronary artery vasospasm; ICD (implantable cardioverter-defibri llator), single, in situ; Cardiac arrest 07/15/2024 1:20 PM EDT Office Visit Cardiology at [address] [phone] Ej Zurita MD Chest discomfort 07/15/2024 Travel 2024 Telephone [place]stetrics [place] [phone] Darron Dexter from Last 3 Months Immunizations Name Administration Dates Next Due Influenza Quadrivalent, Pres ervative Free 07/28/2018,07/18/2015,07/29/2012,2009 Influenza Trivalent, Preserv ative Free 08/09/2024 Tdap (Adacel, Boostrix) 08/09/2024,07/05/2022 Family History Medical History Relation Comments Cancer Mother Migraines Mother Relation Status Comments Mother Alive Social History Tobacco Use Types Packs/Day Years Used Date Smoking Tobacco: Every Day Cigarettes 1 15 Smokeless Tobacco: Never Tobacco Cessation:Ready to Q uit: Not Asked; Counseling Given: Not Answered Comments:Smokess 0.5 - 1 packs of cigarettes daily x 13 - 14 years. Alcohol Use Standard Drinks/Week Comments Not Currently 0 (1 standard drink = 0.6 oz pur e alcohol) [facility] Utilities Answer Date Recorded In the past 12 months has e [employer], oil, or water [employer] threatened to shut off services in your [...] place to sleep or slept in a chcf (including now)? No 03/02/2024 DH IPV Inpatient [...] Orientation Bisexual 03/02/2024 7: 39 AM EDT Last Filed Vital Signs Vital Sign Reading Time Taken Comments Blood Pressure 127/82 09/14/2024 12:51 PM EST Pulse 71 09/14/2024 12:51 PM EST Temperature 36.7 ??C (98.1 ??F) 09/14/2024 10:[address] Respiratory Rate 18 09/14/2024 10:35 AM EST Oxygen Saturation 98% 09/14/2024 12:19 PM EST Inhaled Oxygen Concentration - - Weight 81.4 kg (179 lb 6.4 oz) 09/14/2024 8:50 A M EST Height 162.6 cm (5' 4) 08/15/2024 11:00 AM EDT Body Mass Index 30.79 08/15/2024 11:00 AM EDT Plan of Treatment Upcoming Encounters Date Type Department Care Team (Late st Contact Info) Description 09/21/2024 8:15 AM EST Routine Obstetrics [place] [phone] Emiil Cabrera MD [facility] [place] [address] 09/26/2024 6:00 PM EST Appointment [facility] [place] [phone] 10/16/2024 [place] [phone] Dudley Aguilar MD [facility] OBSTETRICS [place] [address] 11/08/2024 10:00 AM EST Hospital Encounter Non-[place]vasive [place] [phone] Arrived Health Maintenance Due Date Last Done Comments Pneumococcal Vaccine: At-Ris k 5-64yrs (1 of 2 - PCV) 1990 Lipid Screening 2002 HPV test 2014 PAP Smear 2014 Covid-19 Vaccine (1 - 2023-2 5 season) 2024 Breast Cancer Share Decision Needed 2024 Breast Cancer screening 2024 RSV Vaccine (1 - Risk pregna nt 1-dose series) 08/21/2024 Diabetes Screening (HgbA1C o r Glucose) 09/14/2027 09/14/2024, 08/15/2024, 04/23/2024, Additional history exists Tetanus/Diphtheria/Pertussis Vaccines (3 - Td or Tdap) 08/09/2034 08/09/2024, 07/05/2022 HIV screen Completed 04/23/2024, 01/29/2022 Hepatitis C Screening Completed 04/23/2024 , 04/09/2022, 01/29/2022 Influenza (Flu) vaccine Completed 08/09/20, 07/28/2018, 07/18/2015, Additional history exists Medical Devices Implanted Type Area High Pressure Operator Device Identifier Shelf Expiration Date Model / Serial / Lot Bsx: A219: 405139-2/24/2 022 Implanted: by Isai Yap MD (Quantity not on file) Defibrillator Chest [employer] A219 / [id number] / Bsx [id number] Lead [employer] 3501 / [id number] / Procedures Procedure Name Priority Date/Time Associated Diagnosis Comments URINALYSIS WITH REFLEX CULTURE STAT 09/14/2024 11:35 AM EST PROTEIN/CREATININE RATIO, URINE STAT 09/14/2024 11:35 AM EST COMPREHENSIVE METABOLIC PANEL STAT 09/14/2024 10:27 AM EST HEMOGRAM STAT 09/14/2024 10:27 AM EST GROUP B STREP PCR SCREEN Routine 09/14/2024 9:35 AM EST High risk teen in third trimester US OB FOLLOW UP Routine 08/31/2024 10:01 AM EST Chronic hypertension in LAB SCAN 08/27/2024 12:00 AM EST URINALYSIS MICROSCOPIC WITH REFLEX TO CULTURE Routine 08/23/2024 10:30 AM EST Urinary frequency URINALYSIS WITH REFLEX CULTURE Routine 08/23/2024 10:30 AM EST Urinary frequency EKG 12-LEAD STAT 08/15/2024 11:49 AM EDT Chest pain, unspecified type Coronary artery vasospasm Gastroesophageal reflux disease, unspecified whether esophagitis present Chronic hypertension in Cardiac arrest URINALYSIS WITH REFLEX CULTURE Routine 08/15/2024 11:47 AM EDT TROPONIN-T, HIGH SENSITIVITY INITIAL PERFORMABLE STAT 08/15/2024 11:45 AM EDT PRO-BRAIN NATRIURETIC PEPTIDE Routine 08/15/2024 11:45 AM EDT LIPASE Routine 08/15/2024 11:45 AM EDT AMYLASE Routine 08/15/2024 11:45 AM EDT COMPREHENSIVE METABOLIC PANEL STAT 08/15/2024 11:45 AM EDT CBC (WITH DIFF) STAT 08/15/2024 11:45 AM EDT US OB FOLLOW UP Routine 08/09/2024 9:26 AM EDT Chronic hypertension in GESTATIONAL DIABETES SCREEN Routine 08/09/2024 8:30 AM EDT Chronic hypertension in CBC (WITH DIFF) Routine 08/09/2024 8:30 AM EDT Chronic hypertension in PROTEIN/CREATININE RATIO, URINE Routine 07/28/2024 11:25 AM EDT Chronic hypertension in POCT URINE DIPSTICK Routine 07/28/2024 Chronic hypertension in PRO ICD INTERROGATION REMOTE UP TO 90 DAYS Routine 07/05/2024 3:09 PM EDT HIV SCREEN, 4TH GENERATION ([facility]/CGP/APD/NLH) Routine 04/23/2024 8:04 AM EDT Chronic hypertension in HEPATITIS C ANTIBODY Routine 04/23/2024 8:04 AM EDT Chronic hypertension in from Last 3 Months or Most Recently Relevant to Health Maintenance Results * (ABNORMAL) Protein/Creatinine Ratio, urine (09/14/2024 11:35 AM EST) Only the most recent of2 resultswithin the time period is included. Protein, Urine 15(H) 0 - 12 mg/dL 09/14/2024 12:[address] [facility] Creatinine, Urine 97 mg/dL 09/14/2024 12:[address] [facility] Protein / Creatinine Ratio, Urine 0.2 ratio 09/14/2024 12:[address] [facility] Urine URINE SPECIMEN / Unknown Non Blood Collection / Unknown 09/14/2024 11:35 AM EST 09/14/2024 11:50 AM EST Dudley Aguilar MD URINE ORDERABLES [facility] [place] [address] * Urinalysis with reflex Culture (09/14/2024 11:35 AM EST) Only the most recent of3 resultswithin the time period is included. Glucose, Urine Dipstick Negative Negative 09/14/2024 3:[address] [facility] Protein, Urine Dipstick Negative Negative 09/14/2024 3:[address] [facility] Bilirubin, Urine Dipstick Negative Negative 09/14/2024 3:[address] [facility] Comment:Clinical correlation required for positive Urine Bilirubin results as false positive may occur with some drugs and drug related products. If a false positive is suspected a serum total bilirubin should be considered if clinically indicated. Urobilinogen, Urine Dipstick Normal Normal, 0.2 mg/dL, 1.0 mg/dL 09/14/2024 3:38 PM [facility] pH, Urine (dipstick) 7.5 5.0 - 8.0 09/14/2024 3:38 PM [facility] Blood, Urine Dipstick Negative Negative 09/14/2024 3:38 PM [facility] Ketone, Urine Dipstick Negative Negative 09/14/2024 3:38 PM [facility] Nitrite, Urine Dipstick Negative Negative 09/14/2024 3:38 PM [facility] Leukocytes, Urine Dipstick Negative Negative 09/14/2024 3:38 PM [facility] Specific [place] Urine Automated 1.013 1.005 - 1.030 09/14/2024 3:38 PM [facility] Appearance, Urine Dipstick Clear Clear 09/14/2024 3:38 PM [facility] Color, Urine Dipstick Yellow Yellow, Dark Yellow 09/14/2024 3:38 PM [facility] CULTURE ADDED? 09/14/2024 3:38 PM [facility] Urine URINE SPECIMEN OBTAINED BY CLEAN CATCH PROCEDURE / Unknown Non Blood Collection / Unknown 09/14/2024 11:35 AM EST 09/14/2024 3:16 PM EST Dudley Aguilar MD URINE ORDERABLES [facility] [place] [address] * (ABNORMAL) Hemogram (09/14/2024 10:27 AM EST) White Blood Cell 11.61(H) 4.00 - 9.50 x10(3)/mc L 09/14/2024 10:[address] [facility] Red Blood Cell 3.86(L) 4.00 - 5.21 x10(6)/mc L 09/14/2024 10:41 AM [facility] Hemoglobin 10.5(L) 11.7 - 15.5 g/dL 09/14/2024 10:41 AM [facility] Hematocrit 32.3(L) 35.7 - 45.8 % 09/14/2024 10:41 AM [facility] Mean Cell Volume 83.7 82.6 - 94.4 fL 09/14/2024 10:41 AM [facility] Mean Cell Hemoglobin 27.2 27.1 - 32.0 pg 09/14/2024 10:41 AM [facility] Mean Cell Hemoglobin Concentration 32.5 31.7 - 35.0 g/dL 09/14/2024 10:41 AM [facility] Platelet 352 145 - 357 x10(3)/mc L 09/14/2024 10:41 AM [facility] Mean Platelet Volume 9.9 7.6 - 12.9 fL 09/14/2024 10:41 AM [facility] RDW Standard Deviation 46.6(H) 37.0 - 46.0 fL 09/14/2024 10:41 AM [facility] RDW coefficient of variation 15.9(H) 11.5 - 14.1 % 09/14/2024 10:41 AM [facility] NRBC% auto 0.0 % 09/14/2024 10:41 AM [facility] NRBC Absolute <0.01 <0.01 x10(3)/mc L 09/14/2024 10:41 AM [facility] Blood VENOUS BLOOD SPECIMEN / Unknown Venipuncture / Unknown 09/14/2024 10:27 AM EST 09/14/2024 10:33 AM EST Dudley Aguilar MD HEMATOLOGY ORDERABL ES [facility] [place] [address] * (ABNORMAL) Comprehensive metabolic panel (09/14/2024 10:27 AM [facility]) Only the most recent of2 resultswithin the time period is included. Glucose 75 65 - 199 mg/dL 09/14/2024 11:05 AM [facility] Comment:Glucose Concentratio n >=200 mg/dL plus symptoms is consistent with Diabetes Mellitus. Blood Urea Nitrogen 10 8 - 18 mg/dL 09/14/2024 11:05 AM [facility] Creatinine 0.78 0.70 - 1.20 mg/dL 09/14/2024 11:05 AM [facility] Sodium 132(L) 135 - 145 mMol/L 09/14/2024 11:05 AM [facility] Potassium 4.4 3.5 - 5.0 mMol/L 09/14/2024 11:05 AM [facility] Chloride 100 98 - 107 mMol/L 09/14/2024 11:05 AM [facility] Carbon Dioxide 21(L) 22 - 31 mMol/L 09/14/2024 11:05 AM [facility] Anion Gap 11 5 - 15 mMol/L 09/14/2024 11:05 AM [facility] Calcium 9.2 8.5 - 10.5 mg/dL 09/14/2024 11:05 AM [facility] Protein, Total 7.1 6.1 - 8.0 g/dL 09/14/2024 11:05 AM [facility] Albumin 3.7 3.2 - 5.2 g/dL 09/14/2024 11:05 AM [facility] Aspartate Aminotransferase 11 <=30 unit/L 09/14/2024 11:05 AM [facility] Alanine Aminotransferase 13 0 - 30 unit/L 09/14/2024 11:05 AM [facility] Alkaline Phosphatase 152(H) 35 - 105 unit/L 09/14/2024 11:05 AM [facility] Bilirubin, Total 0.2 <=1.3 mg/dL 09/14/2024 11:[address] [facility] Est Glomerular Filtration Rate - Female 99 mL/min/1. 73 m?? 09/14/2024 11:[address] [facility] Comment: This patient's estimated GFR was [...] Foundation Fasting Status No 09/14/2024 11:05 AM [facility] Blood VENOUS BLOOD SPECIMEN / Unknown Venipuncture / Unknown 09/14/2024 10:27 AM EST 09/14/2024 10:33 AM EST Dudley Aguilar MD CHEMISTRY ORDERABLE S [facility] [place] [address] * Group B Strep PCR Screen (09/14/2024 9:35 AM EST) Group B Strep by PCR Not Detected Not Detected 09/15/2024 8:[address] [facility] Swab POOLED SPECIMEN FROM VAGINAL INTROITUS AND RECTAL SWAB / Unknown Non Blood Collection / Unknown 09/14/2024 9:35 AM EST 09/14/2024 12:00 PM EST Yudi Oliveira MD MICROBIOLOGY - NERAL ORDERABLES [facility] [place] [address] * US OB Follow Up (08/31/2024 10:01 AM EST) Only the most recent of2 resultswithin the time period is included. WORKSTATION ID [id number] RAD Anatomical Region Laterality Modality Pelvis, Abdomen [...] who have questions, please contact the health transition of care specialist that requested your imaging first. ? Marek Oliveira, Staff Physician Electronically Signed Final Report ?? 08/31/2024 10:03 am Narrative 08/31/2024 10:04 AM EST OBSTETRICS REPORT ?(Signed Final 08/31/2024 10:03 am) PATIENT INFO: ID #: ? [id number] ?: ??[birth year] (39 yrs)(F) Name: ? JOSE JUAN LUNDY ? Visit Date: 08/31/2024 09:59 am PERFORMED BY: Performed By: ? Elva Duffy RDMS Attending: ?Marek Oliveira MD Referred By: ?LEXIE LIZARRAGA Location: ? [facility]) PROVIDED: UOBFOL - Efw - Growth ??- [place] - [id number] [id number] INDICATIONS: 33 weeks gestation of ?Z3A.33 CHTN [...] 08/31/2024 10:03 am) PATIENT INFO: ID #: [id number] : [birth year] (39 yrs)(F) Name: JOSE JUAN LUNDY Visit Date: 08/31/2024 09:59 am PERFORMED BY: Performed By: Elva Duffy RDMS Attending: Marek Oliveira MD Referred By: LEXIE LIZARRAGA Location: [facility]ICE([facility]) PROVIDED: UOBFOL - Efw - Growth - [place] - [id number] INDICATIONS: 33 weeks gestation of Z3A.33 CHTN [...] who have questions, please contact the health transition of care specialist that requested your imaging first. Marek Oliveira, Staff Physician Electronically Signed Final Report 08/31/2024 10:03 am Lxeie Lizarraga MD [facility] US OB ORDERABLES * Scan Doc: Lab (08/27/2024 12:00 AM EST) Narrative 08/27/2024 12:00 AM EST Ordered by an unspecified provider. Scanning Provider MEDIA MGR SCAN EXT O RDR/RSLT * Urinalysis Microscopic with Reflex to Culture (08/23/2024 10:30 AM EST) Bacteria, Urine None None /HPF 5:33 PM [facility] RBC, Urine 3 0 - 4 /HPF 08/23/2024 5:33 PM [facility] WBC, Urine 1 0 - 5 /HPF 08/23/2024 5:33 PM [facility] Squamous Epithelial Cells, Urine 1 0 - 5 /HPF 08/23/2024 5:33 PM [facility] Hyaline Casts, Urine 1 0 - 2 /LPF 08/23/2024 5:33 PM [facility] CULTURE ADDED? 08/23/2024 5:33 PM [facility] Urine URINE SPECIMEN OBTAINED BY CLEAN CATCH PROCEDURE / Unknown Non Blood Collection / Unknown 08/23/2024 10:30 AM EST 08/23/2024 4:37 PM EST Romana Torres MD URINE ORDERABLES [facility] [place], [place] [address] * EKG 12 Lead (08/15/2024 11:49 AM EDT) Ventricular rate 80 BPM MUSE SYSTEM Atrial Rate 80 BPM MUSE SYSTEM P-R Interval 128 ms MUSE SYSTEM QRS Duration 80 ms MUSE SYSTEM Q-T Interval 382 ms MUSE SYSTEM QTC Calculated (Bezet) 440 ms MUSE SYSTEM Calculated P [place] 25 degrees MUSE SYSTEM Calculated R [place] 48 degrees MUSE SYSTEM Calculated T [place] 12 degrees MUSE SYSTEM INTERPRETATION Normal sinus rhythm Possible Anterior infarct (cited on or before 23-JUL-2022) Abnormal ECG When compared with ECG of 20-OCT-2022 07:29, No significant change was found I personally reviewed the tracing and edited the fellows interpretation Confirmed by fellow Noah Villanueva ([id number]) on 08/20/2024 9:03:00 AM Confirmed by MD ANEUDY, ANGELO ([id number]) on 08/20/2024 1:36:48 PM MUSE SYSTEM 08/15/2024 11:4 9 AM EDT 08/20/2024 1:36 PM EDT Janeth Quintana MD ECG ORDERABLES MUSE SYSTEM * Troponin-T, High Sensitivity (08/15/2024 11:45 AM EDT) Troponin-T, High Sensitivity Initial <6 <=14 ng/L 08/15/2024 12:[address] [facility] Comment: This patient's troponin T [...] troponin value can be found in the [facility] Test Catalog Troponin - [email or web address].org/catalogs/565/files/[email or web address] Reference: Fourth [place] Definition of Myocardial Infarction. Journal of the [place] College of Cardiology 2018;72:3800-0075 Blood VENOUS BLOOD SPECIMEN / Unknown Venipuncture / Unknown 08/15/2024 11:45 AM EDT 08/15/2024 11:53 AM EDT Janeth Quintana MD CHEMISTRY ORDERABLES [facility] [place] [address] * (ABNORMAL) CBC (with Diff) (08/15/2024 11:45 AM EDT) Only the most recent of2 resultswithin the time period is included. White Blood Cell 15.46(H) 4.00 - 9.50 x10(3)/mc L 08/15/2024 11:[address] [facility] Red Blood Cell 3.47(L) 4.00 - 5.21 x10(6)/mc L 08/15/2024 11:[address] [facility] Hemoglobin 9.8(L) 11.7 - 15.5 g/dL 08/15/2024 11:[address] [facility] Hematocrit 29.6(L) 35.7 - 45.8 % 08/15/2024 11:[address] [facility] Mean Cell Volume 85.3 82.6 - 94.4 fL 08/15/2024 11:[address] [facility] Mean Cell Hemoglobin 28.2 27.1 - 32.0 pg 08/15/2024 11:[address] [facility] Mean Cell Hemoglobin Concentration 33.1 31.7 - 35.0 g/dL 08/15/2024 11:[address] [facility] Platelet 309 145 - 357 x10(3)/mc L 08/15/2024 11:[address] [facility] Mean Platelet Volume 10.7 7.6 - 12.9 fL 08/15/2024 11:[address] [facility] RDW Standard Deviation 48.6(H) 37.0 - 46.0 fL 08/15/2024 11:[address] [facility] RDW coefficient of variation 15.6(H) 11.5 - 14.1 % 08/15/2024 11:[address] [facility] NRBC% auto 0.0 % 08/15/2024 11:[address] [facility] NRBC Absolute <0.01 <0.01 x10(3)/mc L 08/15/2024 11:[address] [facility] Neutrophil % 79.1 % 08/15/2024 11:[address] [facility] Neutrophil Absolute (ANC) - Automated 12.23(H) 1.70 - 6.10 x10(3)/mc L 08/15/2024 11:[address] [facility] Lymph % 15.1 % 08/15/2024 11:[address] [facility] Lymph Absolute 2.33 0.90 - 3.20 x10(3)/mc L 08/15/2024 11:[address] [facility] Monocyte % 3.7 % 08/15/2024 11:[address] [facility] Monocyte Absolute 0.57 0.30 - 0.90 x10(3)/mc L 08/15/2024 11:[address] [facility] Eos % 1.3 % 08/15/2024 11:[address] [facility] Eos Absolute 0.20 0.00 - 0.40 x10(3)/mc L 08/15/2024 11:[address] [facility] Basophil % 0.2 % 08/15/2024 11:[address] [facility] Baso Absolute <0.04 0.00 - 0.10 x10(3)/mc L 08/15/2024 11:[address] [facility] Immature Gran % 0.6 % 11:[address] [facility] Immature Gran Absolute 0.10(H) 0.00 - 0.04 x10(3)/mc L 08/15/2024 11:[address] [facility] Blood VENOUS BLOOD SPECIMEN / Unknown Venipuncture / Unknown 08/15/2024 11:45 AM EDT 08/15/2024 11:53 AM EDT Janeth Quintana MD HEMATOLOGY ORDERABLE S [facility] [place] [address] * (ABNORMAL) pro-Brain Natriuretic Peptide (08/15/2024 11:45 AM EDT) NT-proBNP 125(H) <=124 pg/mL 08/15/2024 12:[address] [facility] Blood VENOUS BLOOD SPECIMEN / Unknown Venipuncture / Unknown 08/15/2024 11:45 AM EDT 08/15/2024 11:53 AM EDT Janeth Quintana MD CHEMISTRY ORDERABLES [facility] [place] [address] * Lipase (08/15/2024 11:45 AM EDT) Lipase 20 0 - 60 unit/L 08/15/2024 12:[address] [facility] Blood VENOUS BLOOD SPECIMEN / Unknown Venipuncture / Unknown 08/15/2024 11:45 AM EDT 08/15/2024 11:53 AM EDT Janeth Quintana MD CHEMISTRY ORDERABLES Performing Organization Address City/[facility]/ZIP Co de Phone Number [facility] [place] [address] * Amylase (08/15/2024 11:45 AM EDT) Amylase 100 28 - 100 unit/L 08/15/2024 12:[address] [facility] Blood VENOUS BLOOD SPECIMEN / Unknown Venipuncture / Unknown 08/15/2024 11:45 AM EDT 08/15/2024 11:53 AM EDT Janeth Quintana MD CHEMISTRY ORDERABLES Performing Organization Address City/[facility] Co de Phone Number [facility] [place] [address] * Gestational Diabetes Screen (08/09/2024 8:30 AM EDT) Glucose Gestational Screen, 1 Hour 101 65 - 134 mg/dL 08/09/2024 9:[address] [facility] Oral Glucose Dose 50 gm 08/09/2024 9:[address] [facility] Blood VENOUS BLOOD SPECIMEN / Unknown Venipuncture / Unknown 08/09/2024 8:30 AM EDT 08/09/2024 8:31 AM EDT Kaila Castellanos MD CHEMISTRY ORDERABL ES Performing Organization Address [facility] de Phone Number [facility] [place] [address] * (ABNORMAL) POCT urine dipstick (07/28/2024) POC Sp [place] 1.0(A) 1.002 - 1.030 POC pH, UA 5 5.0 - 8.5 POC Leuk, UA neg Negative - Negative POC Nitrite, UA neg Negative - Negative POC Protein, UA neg Negative - Negative mg/dL POC Glucose, UA norm Normal - Normal mg/dL POC Ketone, UA neg Negative - Negative POC Urobil, UA norm 0.2 - 1.0 mg/dL POC Bili, UA neg Negative - Negative POC Blood, UA neg Negative - Negative rajeev/uL Kaila Castellanos MD POINT OF CARE TEST ORDERABLES * Cardiac Device Check - Remote (07/05/2024 3:09 PM EDT) Anatomical Region Laterality Modality Other 07/05/2024 3:09 PM EDT Isai Yap MD IMPLANTABLE CARDIAC DEVICE * Hepatitis C Antibody (04/23/2024 8:04 AM EDT) Hepatitis C Antibody Negative Negative [facility] Blood 04/23/2024 8:04 AM EDT 04/23/2024 8:11 AM EDT Narrative Resulting Agency Comment Spec In Lab E Luz Oliveira MD CHEMISTRY ORDERAB LES Performing Organization Address City/[facility]/ZIP Co de Phone Number [facility] [place] [address] * HIV Screen, 4th Generation ([facility]/CGP/APD/NLH) (04/23/2024 8:04 AM EDT) HIV Ab/Ag Screen Negative Negative [facility] Comment: This 4th Generation HIV test screens for the presence of the HIV-1 p24 antigen as well as antibodies reactive against HIV-1 and HIV-2. A negative screen does not rule out an acute HIV infection. If acute HIV infection is suspected, testing should be repeated in 2 - 3 weeks or HIV nucleic acid testing performed. HIV Comment Low Risk of HIV Infection [facility] Blood 04/23/2024 8:04 AM EDT 04/23/2024 8:11 AM EDT Narrative Resulting Agency Comment Spec In Lab E Luz Oliveira MD CHEMISTRY ORDERAB LES [facility] [place] [address] from Last 3 Months or Most Recently Relevant to Health Maintenance Advance Directives * Attempt Cardiopulmonary Resuscitation - Inpatient (Latest Code Status on File) Date Activated Date Inactivated Comments 07/25/2022 12:09 PM 07/29/2022 1:28 PM Question Answer Comments Code Status decision made by: Patient * Attempt Cardiopulmonary Resuscitation - Inpatient Date Activated Date Inactivated Comments 11/04/2021 12:18 PM 11/14/2021 6:32 PM Question Answer Comments Code Status decision made by: Surrogate Decision Maker Name (and relationship if needed): Mother * Attempt Cardiopulmonary Resuscitation - Inpatient Date Activated Date Inactivated Comments 05/22/2020 4:27 PM 05/25/2020 5:11 PM Question Answer Comments Code Status decision made by: Patient * Full Code Date Activated Date Inactivated Comments 07/04/2016 11:30 PM 07/05/2016 3:42 PM Question Answer Comments Does patient have capacity to make decision: Yes Care Teams Facility Maintenance Worker Relationship Specialty Start Date End Date Kenia Lawrence, LANGUAGE TEACHER [address] [place] [address] PCP - General Family Medicine 09/29/23
--- OUTSIDE RECORDS SUMMARY | 2024-09-20 11:01 | XMS_ITS | Encounter Summary ---
Author Organization [facility] Address [facility] [place] [address] Care Team Providers Care Package Winder Name Role Phone MelindaKenia ford ADRIAN Primary Care Provider [phone]- [phone] Encounter Details Date Type Department Care Team (Late st Contact Info) Description 08/13/2024 Orders Only Obstetrics [place] [address] Lexie Ibrahim MD [facility] MATERNAL & [place] [address] Anemia during in third trimester Social History Tobacco Use Types Packs/Day Years Used Date Smoking Tobacco: Every Day Cigarettes 1 15 Smokeless Tobacco: Never Comments:Smokess 0.5 - 1 pac ks of cigarettes daily x 13 - 14 years. Alcohol Use Standard Drinks/Week Comments Not Currently 0 (1 standard drink = 0.6 oz pur e alcohol) [facility] Utilities Answer Date Recorded In the past 12 months has e [employer], gas, oil, or water [employer] threatened to shut off services in your [...] place to sleep or slept in a assisted (including now)? No 03/02/2024 DH IPV Inpatient [...] AM EST Routine Obstetrics [place] [address] Emili Cabrera MD [facility] DR MATERNAL [place] [address] 09/26/2024 6:00 PM EST Appointment [facility] [place] [phone] 10/16/2024 [place] [phone] Dudley Aguilar MD [facility] DR OBSTETRICS [place] [address] 11/08/2024 10:00 AM EST Hospital Encounter [place] [phone] Arrived Scheduled Orders Name Type Priority Associated Diagnoses Orde r Schedule Ferritin Lab Routine Anemia during in third trimester Expected: 08/13/2024, Expires: 02/12/2025 Iron and TIBC Lab Routine Anemia during in third trimester Expected: 08/13/2024, Expires: 02/12/2025 Vitamin B12 Lab Routine Anemia during in third trimester Expected: 08/13/2024, Expires: 02/12/2025 Folate, serum Lab Routine Anemia during in third trimester Expected: 08/13/2024, Expires: 02/12/2025 documented as of this encounter Visit Diagnoses Diagnosis Anemia during in third trimester documented in this encounter Care Teams Package Winder Relationship Specialty Start Date End Date Kenia Lawrence APRN [address] [place] [address] PCP - General Family Medicine 12/11/23 documented as of this encounter
--- OUTSIDE RECORDS SUMMARY | 2024-09-20 11:02 | XMS_ITS | Encounter Summary ---
Author Organization [facility] Address [facility] [place] [address] Care Team Providers Care Right Of Way Worker Name Role Phone Melinda, Kenia Marilin CAMPBELL Primary Care Provider [phone]- [phone] Encounter Details Date Type Department Care Team (Latest Contact Info) Description 08/10/2024 10:00 AM EDT - 08/10/2024 11:59 PM EDT Hospital Encounter Non-[place] [address] Discharge Disposition: Home Social History Tobacco Use Types Packs/Day Years Used Date Smoking Tobacco: Every Day Cigarettes 1 15 Smokeless Tobacco: Never Comments:Smokess 0.5 - 1 pac ks of cigarettes daily x 13 - 14 years. Alcohol Use Standard Drinks/Week Comments Not Currently 0 (1 standard drink = 0.6 oz pur e alcohol) [facility] Utilities Answer Date Recorded In the past 12 months has [employer], oil, or water [employer] threatened to shut off services in your [...] for Chest pain. 30 tablet 11 08/15/2024 isosorbide dinitrate (Isordil) 5 mg tabletIndications:Ches t discomfort Take 1 tablet by mouth 3 [...] each 07/29/2022 fluticasone propionate (Flonase) 50 mcg/actuation [place], SuspensionIndications: allergic rhinitis 1 spray by Each Nare route [...] Take 1 tablet by mouth as needed. nitroGLYcerin (Nitrostat) 0.[address] 0.4 mg under the tongue every 5 minutes as needed for Chest pain. 08/15/2024 terconazole (TERAZOL 7) 0.4 % Cream Place 1 applicator vaginally nightly. 45 g 03/03/2024 08/23/2024 famotidine (Pepcid) 40 mg Tablet Take 1 tablet by mouth 2 times daily. 180 tablet 2 10/31/2022 08/15/2024 nitroGLYcerin (Nitrostat) 0.4 mg Tablet, Sublingual Place 1 tablet under the tongue every 5 minutes as needed for Chest pain. 30 tablet 1 10/31/2022 08/13/2024 documented as of this encounter Plan of Treatment Upcoming Encounters Date Type Department Care Team (Late st Contact Info) Description 09/21/2024 8:15 AM EST Routine Obstetrics [place] [address] Emili Cabrera MD [facility] MATERNAL [place] [address] 09/26/2024 6:00 PM EST Appointment [facility] [place] [address] 10/16/2024 Hospital [place] [phone] Dudley Aguilar MD [facility] OBSTETRICS [place] [address] 11/08/2024 10:00 AM EST Hospital Encounter Non-[place] [address] Arrived documented as of this encounter Procedures Procedure Name Priority Date/Time Associated Diagnosis Comments PRO ICD INTERROGATION REMOTE UP TO 90 DAYS Routine 07/05/2024 3:09 PM EDT documented in this encounter Results * Cardiac Device Check - Remote (07/05/2024 3:09 PM EDT) Anatomical Region Laterality Modality Other 07/05/2024 3:09 PM EDT Isai Yap MD IMPLANTABLE CARDIAC DEVICE documented in this encounter Visit Diagnoses Not on filedocumented in this encounter Care Teams Right Of Way Worker Relationship Specialty Start Date End Date Kenia Lawrence APRN [address] [place] [address] PCP - General Family Medicine 09/29/23 documented as of this encounter
--- OUTSIDE RECORDS SUMMARY | 2024-09-20 11:02 | XMS_ITS | Encounter Summary ---
Author Organization [facility] [place] [address] Care Team Providers Care Mixing Pan Tender Name Role Phone Melinda Kenia Marilin CAMPBELL Primary Care Provider +1- [phone] Encounter Details Date Type Department Care Team (Latest Contact Info) Description 05/05/2024 Travel Social History Tobacco Use Types Packs/Day Years Used Date Smoking Tobacco: Every Day Cigarettes 1 15 Smokeless Tobacco: Never Comments:Smokess 0.5 - 1 pac ks of cigarettes daily x 13 - 14 years. Alcohol Use Standard Drinks/Week Comments Not Currently 0 (1 standard drink = 0.6 oz pur e alcohol) [facility] Utilities Answer Date Recorded In the past 12 months has e [employer], gas, oil, or water [employer] threatened to shut off services in your [...] place to sleep or slept in a fci (including now)? No 03/02/2024 Estimated Date of Delivery Comme nts Yes [...] AM EST Routine Obstetrics [place] [address] Emili Cabrera MD [facility] [place]ERNAL [place] [address] 09/26/2024 6:00 PM EST Appointment [facility] [place] [address] 10/16/2024 Hospital Encounter [place] [address] Dudley Aguilar MD [facility] DR OBSTETRICS [place] [address] 11/08/2024 10:00 AM EST Hospital Encounter Non-Invasive [place] [address] Arrived documented as of this encounter Visit Diagnoses Not on filedocumented in this encounter Care Teams Mixing Pan Tender Relationship Specialty Start Date End Date Kenia Lawrence APRN [address] [place] [address] PCP - General Family Medicine 09/29/23 documented as of this encounter
--- OUTSIDE RECORDS SUMMARY | 2024-09-20 11:02 | XMS_ITS | Encounter Summary ---
Author Organization [facility] Address [facility] [place] [address] Care Team Providers Care Certified Professional Coder Name Role Phone MelindaKenia ford ADRIAN Primary Care Provider [phone]- [phone] Encounter Details Date Type Department Care Team (Late st Contact Info) Description 07/15/2024 1:20 PM EDT Office Visit Cardiology at [address] [address] Ej Zurita MD [facility] [place] [address] Chest discomfort Social History Tobacco Use Types Packs/Day Years Used Date Smoking Tobacco: Every Day Cigarettes 1 15 Smokeless Tobacco: Never Comments:Smokess 0.5 - 1 pac ks of cigarettes daily x 13 - 14 years. Alcohol Use Standard Drinks/Week Comments Not Currently 0 (1 standard drink = 0.6 oz pur e alcohol) [facility] Utilities Answer Date Recorded In the past 12 months has e [employer], gas, oil, or water [employer] threatened to shut off services in your [...] in a halfway (including now)? No 03/02/2024 DH IPV Inpatient [...] Sign Reading Time Taken Comments Blood Pressure 129/82 07/15/2024 1:30 PM EDT Pulse 86 07/15/2024 1:30 PM EDT Temperature - - Respiratory Rate 18 07/15/2024 1:30 PM EDT Oxygen Saturation 100% 07/15/2024 1:30 PM EDT Inhaled Oxygen Concentration - - Weight 76.7 kg (169 lb) 07/15/2024 1:30 PM EDT Height 162.6 cm (5' 4) 07/15/2024 1:30 PM EDT Body Mass Index 29.01 07/15/2024 1:30 PM EDT documented in this encounter Progress Notes * Ej Zurita MD - 07/15/2024 1:20 PM EDT [facility] [place] [address] CARDIOLOGY OUTPATIENT PROGRESS NOTE PRIMARY CARE PROVIDER: Kenia Lawrence APRN REFERRING PROVIDER: Kenia Lawrence PROBLEM LIST: Patient Active Problem List Diagnosis Chronic hypertension in Encounter for induction of labor [facility] SQ ICD, single, in situ Pulse generator: Emblem MRI S-ICD Pulse Generator Model A219 Serial Number [id number] Implanted 11/12/21 Ventricular electrode: SQ electrode Model 3501 Bipolar Serial Number [id number] Implanted 11/12/21 Cigarette smoker Coronary artery vasospasm History of COVID-19 Cardiac arrest Per 05/14/2022 Cardiology note: Summary: Cardiac arrest secondary to vasospasm on CCB/nitrates PRN. There did not appear to have been myocardial damage nor cardiomyopathy after her arrest. LVEF 68% without RWMA. She has a sub-Q ICD which has not fired. And was counseled extensively to quit smoking. Gastroesophageal reflux disease Added automatically from request for surgery [id number] Borderline personality disorder Post-traumatic stress disorder, chronic Anxiety disorder, unspecified The patient is a 34-year-old woman who presented with worsening anxiety surrounding nonspecific somatic complaints such as full body tingling. She has a number of existing medical issues such as HTN,asthma, and GERD, the symptoms of which (e.g. heartburn, cough) tend to provoke her anxiety. Chest pain ETT 2013- negative ST III Echo 2013 Normal LV size and function, trivial TR, mild PI Skin disease Depression Asthma Rx PRN albuterol Pulmonary workup negative 2007 (in [facility]) Hypertension Onset 2013, variable BP highs of 160-170 systolic, then normal Tachycardia Recurrent major depressive episodes, moderate MEDICATIONS: Current Outpatient Medications Medication Sig Dispense Refill diazePAM (Valium) 2 mg tablet Take 1 tablet by mouth Three Times Daily for DHE. amLODIPine (Norvasc) 10 mg tablet Take 1 tablet by mouth daily. 90 tablet 3 meclizine (Antivert) 25 mg chewable tablet 1/2 tablet as needed Orally up to three times a day for 7 days Antacid-Antigas 200-200-20 mg/5 mL Suspension COMBINE 10 MLS WITH LIDOCAINE ORALLY THREE TIMES A DAY Strength: 200-200-20 mg/5 mL 355 mL 1 nitroGLYcerin (Nitrostat) 0.4 mg Tablet, Sublingual Place 1 tablet under the tongue every 5 minutesas needed for Chest pain. 30 tablet 1 acetaminophen (Tylenol) 325 mg Tablet Take 3 tablets by mouth every 6 hours as needed for Pain. 30 tablet 1 polyethylene glycoL (Miralax) 17 gram Powder in Packet Take 17 g by mouth daily. 14 each 0 fluticasone propionate (Flonase) 50 mcg/actuation Camilla, Suspension 1 spray by Each Nare route nightly. Substitute OTC if needed Indications: inflammation of the nose due to an allergy 16 g 1 cetirizine (ZyrTEC) 10 mg Tablet TAKE ONE TABLET BY MOUTH EVERY DAY fluticasone propionate (Flovent HFA) 110 mcg/actuation HFA Aerosol Inhaler Every 12 hours. ipratropium-albuteroL (Duoneb) 0.5 mg-3 mg(2.5 mg base)/3 mL Solution for Nebulization Every 6 hours. albuterol 90 mcg/actuation HFA Aerosol Inhaler Inhale 2 puffs into the lungs every 4 hours as needed for Wheezing. Use with spacer calcium carbonate (TUMS) 200 mg calcium (500 mg) Tablet, Chewable Take 1 tablet by mouth as needed. sucralfate (Carafate) 100 mg/mL Suspension Take 10 mLs by mouth 3 times daily. 420 mL 0 isosorbide dinitrate (Isordil) 5 mg tablet Take 1 tablet by mouth 3 times daily as needed. 30 tablet 3 terconazole (TERAZOL 7) 0.4 % Cream Place 1 applicator vaginally nightly. (Patient not taking: Reported on 04/21/2024) 45 g 0 famotidine (Pepcid) 40 mg Tablet Take 1 tablet by mouth 2 times daily. (Patient not taking: Reported on 04/21/2024) 180 tablet 2 No current facility-administered medications for this visit. Subjective: Patient ID: Aniya Luque is a [...] Estimated Date of Delivery: 10/16/24 Currently almost 27 weeks . Last visit: I have increased her long acting vasodilators (added isordil) as below for chest pain. Chronic issues-worse with and recently. Tearful today about anxiety and depression with . Concerns about growth due to limited po intake. + heart burn, mid chest, up and around the shoulders, random chest discomfort, not associated with exertion, lasting couple minutes, sometimes off and on throughout the day and using about 2SLN a day. Hasn't tried isordil +Has ED visits for chest pain since 2021. She typically is cleared to go home from the emergency department after an EKG and troponins. None recently +seeing PCP Kenia Lance often. +joint pain, difficulty ambulating Interrogate device: [employer] no shocks on interrogation via EP service in February, asked for updated interrogation report. TTE 04/2024: -Left ventricular systolic function is normal. Left ventricular ejection fraction is estimated visually at 65%. There are no segmental wall motion abnormalities. -The right ventricle is of normal size. Right ventricular systolic function is normal. -Normal valves. -Compared with the previous echo performed on 03/14/22, there is no significant change. Exercise: Goes on walks with her children diazePAM (Valium) 2 mg tablet amLODIPine (Norvasc) 10 mg tablet meclizine (Antivert) 25 mg chewable tablet Antacid-Antigas 200-200-20 mg/5 mL Suspension nitroGLYcerin (Nitrostat) 0.4 mg Tablet, Sublingual acetaminophen (Tylenol) 325 mg Tablet polyethylene glycoL (Miralax) 17 gram Powder in Packet fluticasone propionate (Flonase) 50 mcg/actuation Camilla, Suspension cetirizine (ZyrTEC) 10 mg Tablet fluticasone propionate (Flovent HFA) 110 mcg/actuation HFA Aerosol Inhaler ipratropium-albuteroL (Duoneb) 0.5 mg-3 mg(2.5 mg base)/3 mL Solution for Nebulization albuterol 90 mcg/actuation HFA Aerosol Inhaler calcium carbonate (TUMS) 200 mg calcium (500 mg) Tablet, Chewable sucralfate (Carafate) 100 mg/mL Suspension isosorbide dinitrate (Isordil) 5 mg tablet terconazole (TERAZOL 7) 0.4 % Cream famotidine (Pepcid) 40 mg Tablet Details of her initial hospitalization and course: [...] CTA confirms there is no RCA disease. Family History: Family History Problem Relation Age of Onset Migraines Mother Cancer Mother Social History: -Lives with Todd-2 July; Cindi 8 in June -Partner recently incarcerated Objective: PHYSICAL EXAM: Patient Vitals for the past 24 hrs: Pulse Resp BP SpO2 07/15/24 1330 86 18 129/82 100 % No data found. Gen: pleasant female in NAD Eyes: Non-injected, no scleral icterus HEENT: atraumatic, MMM Cor: rrr, s1/s2 of nl character and amplitude, no m/r/g. Estimated RAP 5. Carotids without bruit. Pulm: CTAB. Normal diaphragmatic movement without use of accessory muscles Ab: soft, nt, no hernias Ext: no c/c/e. Dp/pt ++ Neuro: without focal deficit Skin: WWP, no rashes nor ulcers Psych: Well kempt, normal affect and insight Labs: Lab Results Component Value Date WBC 10.2 (H) 04/23/2024 WBC 9.3 10/20/2022 WBC 11.0 (H) 10/05/2022 HGB 12.0 04/23/2024 HGB 14.0 10/20/2022 HGB 14.0 10/05/2022 PLATELET 264 04/23/2024 PLATELET 214 10/20/2022 PLATELET [...] is a 39 y.o. patient presenting for assessment of maternal cardiovascular risk in . In 2021: Cardiac catheterization and coronary CTA did not show atherosclerotic cardiovascular disease. In 2022. Her ventricular systolic function is normal. She does not have any valve disease. Since her initial event: She has not had any interval ventricular arrhythmias. 2023: TTE normal 04/2024. Given maternal age and her history of a cardiac arrest in the context of vasospasm Aniya's remains at increased cardiovascular risk compared to normal . It is difficult to give her any exact numbers regarding the possibility of recurrence of vasospasm, however, her last was uneventful from a cardiac standpoint and she is tolerating this well. There is no absolute cardiac contraindication to continued at this time. Plan: Doing well from a CV standpoint. No evidence of heart failure or arrhythmia or ischemia. Having heart burn and nonanginal chest pain. Feeling depression and anxiety. Continue amlodipine 10 mg daily Add sucralfate 1mg TID for heart burn Isordil 5mg up to 3 times daily, explained similarity to SLN and the fact that this is a lower moresustained maintenance dose to avoid the need for boluses of SLN as often SLN PRN No shocks on ICD. We should continue interrogating her device throughout her . Delivery timing to be determined by her obstetrics team, but feeling really overwhelmed/tearful about the current state of how she feels and I anticipate her symptoms may warrant induction of labor earlier than 40 weeks. Delivery location to be [facility] RTC with me in a month per request Message sent to [facility] to update them about her symptom status and concerns No follow-ups on file. Thank you for the opportunity to participate in this patient's cardiovascular care. All questions were answered and I look forward to the next visit. Ej Zurita MD I spent at least 45 minutes of time on this patient encounter on the date of service performing activities related to: ?preparing to see the patient (eg, review of tests) ?obtaining and/or reviewing separately obtained history ?performing a medically appropriate examination and/or evaluation ?counseling and educating the patient/family/caregiver ?ordering medications, tests, or procedures ?referring and communicating with other health animal caretaker supervisor (when not separately reported) ?documenting clinical information in the electronic or other health record ?independently interpreting results (not separately reported) and communicating results to the patient/family/caregiver ?care coordination (not separately reported) documented in this encounter Plan of Treatment Upcoming Encounters Date Type Department Care Team (Late st Contact Info) Description 09/21/2024 8:15 AM EST Routine Obstetrics [place] [address] Emlii Cabrera MD [facility] [place] [address] 09/26/2024 6:00 PM EST Appointment [facility] [place] [address] 10/16/2024 [place] [address] Dudley Aguilar MD [facility] [address] [place] [address] 11/08/2024 10:00 AM EST Hospital Encounter Non-Invasive [place] [address] Arrived documented as of this encounter Visit Diagnoses Diagnosis Chest discomfort Other chest pain documented in this encounter Care Teams Certified Professional Coder Relationship Specialty Start Date End Date Kenia Lawrence APRN [address] [place] [address] PCP - General Family Medicine 09/29/23 documented as of this encounter
--- OUTSIDE RECORDS SUMMARY | 2024-09-20 11:02 | XMS_ITS | Encounter Summary ---
Author Organization [facility] [place] [address] Care Team Providers Care Forensic Toxicologist Name Role Phone Melinda Kenia Marilin CAMPBELL Primary Care Provider [phone]- [phone] Encounter Details Date Type Department Care Team (Latest Contact Info) Description 07/28/2024 Travel Social History Tobacco Use Types Packs/Day Years Used Date Smoking Tobacco: Every Day Cigarettes 1 15 Smokeless Tobacco: Never Comments:Smokess 0.5 - 1 pac ks of cigarettes daily x 13 - 14 years. Alcohol Use Standard Drinks/Week Comments Not Currently 0 (1 standard drink = 0.6 oz pur e alcohol) [facility] Utilities Answer Date Recorded In the past 12 months has e [employer], gas, oil, or water [employer] threatened to shut off services in your [...] place to sleep or slept in a intermediate (including now)? No 03/02/2024 IPV Inpatient Questions [...] AM EST Routine Obstetrics [place] [address] Emili Cabrera MD [facility] [place] [address] 09/26/2024 6:00 PM EST Appointment [facility] Birthing [place] [id number] 10/16/2024 [place] [address] Dudley Aguilar MD [facility] OBST[place] [address] 11/08/2024 10:00 AM EST Hospital Encounter Non-Invasive Cardiology Lab [place] [phone] Arrived documented as of this encounter Visit Diagnoses Not on filedocumented in this encounter Care Teams Forensic Toxicologist Relationship Specialty Start Date End Date Kenia Lawrence APRN [address] [place] [address] PCP - General Family Medicine 09/29/23 documented as of this encounter
--- OUTSIDE RECORDS SUMMARY | 2024-09-20 11:02 | XMS_ITS | Encounter Summary ---
Author Organization [facility] Address [facility] [place] [address] Care Team Providers Care Rubber Curer Name Role Phone MelindaKenia ford ADRIAN Primary Care Provider [phone]- [phone] Encounter Details Date Type Department Care Team (Latest Contact Info) Description 05/31/2024 7:43 AM EDT - 05/31/2024 11:59 PM EDT Hospital [place] [address] Kaila Hameed MD [facility] [address] [place]ST[place] [address] Acute pelvic pain, female; Chest discomfort Discharge Disposition: Home Social History Tobacco Use Types Packs/Day Years Used Date Smoking Tobacco: Every Day Cigarettes 1 15 Smokeless Tobacco: Never Comments:Smokess 0.5 - 1 pac ks of cigarettes daily x 13 - 14 years. Alcohol Use Standard Drinks/Week Comments Not Currently 0 (1 standard drink = 0.6 oz pur e alcohol) [facility] Utilities Answer Date Recorded In the past 12 months has [employer], gas, oil, or water [employer] threatened to shut off services in your [...] for Chest pain. 30 tablet 11 08/15/2024 diazePAM (Valium) 2 mg tablet Take 1 [...] each 07/29/2022 fluticasone propionate (Flonase) 50 mcg/actuation [employer], SuspensionIndications: allergic rhinitis 1 spray by Each [...] minutes as needed for Chest pain. 08/15/2024 isosorbide dinitrate (Isordil) 5 mg tabletIndications:Ches t discomfort Take 1 tablet by mouth 3 times daily as needed. 30 tablet 3 05/07/2024 07/15/2024 terconazole (TERAZOL 7) 0.4 % Cream Place [...] AM EST Routine Obstetrics [place] [address] Emili Cabrera MD [facility] [place] [address] 09/26/2024 6:00 PM EST Appointment [facility] [place] [phone] 10/16/2024 Hospital [place] [phone] Dudley Aguilar MD [facility] DR OBST[place] [address] 11/08/2024 10:00 AM EST Hospital Encounter Non-[place]vasive [place] [address] Arrived documented as of this encounter Procedures Procedure Name Priority Date/Time Associated Diagnosis Comments US OB DETAILED MORPHOLOGY Routine 05/31/2024 8:44 AM EDT Acute pelvic pain, female Chest discomfort documented in this encounter Results * US OB Detailed Morphology (05/31/2024 8:44 AM EDT) [employer] WORKSTATION ID [id number] 1 DH RAD Anatomical Region Laterality Modality Pelvis, Abdomen Ultrasound 05/31/2024 8:00 AM EDT Impressions 05/31/2024 8:54 AM EDT 2nd Trimester - Detailed Morphology - Summary Single intrauterine with a gestational age of 20w 2d based on Early Ultrasound ??(02/26/24) Composite age based on the current ultrasound alone is 20w 2d. Current growth parameters are consistent with prior dating indicating normal growth. Amniotic fluid volume is Subjectively normal for gestational age Detailed anatomic evaluation was performed and a two vessel cord is seen. No other structural abnormalities are noted. Thank you for letting us participate in the care of this patient. If you are a health care provider and have any questions regarding this report, please contact the number above. For patients who have questions, please contact the health primary care md that requested your imaging first. ? Romana Torres, Staff Physician Electronically Signed Final Report ?? 05/31/2024 08:53 am Narrative 05/31/2024 8:54 AM EDT OBSTETRICS REPORT ?(Signed Final 05/31/2024 08:53 am) PATIENT INFO: ID #: ? [id number] ?: ??[birth year] (38 yrs)(F) Name: ? JOSE JUAN LUQUE ? Visit Date: 05/31/2024 08:00 am PERFORMED BY: Performed By: ? Arcelia Bateman RDMS Attending: ?Brian LOUISE, Romana Banks Referred By: ?KAILA HAMEED Location: ? [place] SERVICE(S) PROVIDED: [facility] - Detailed Morphology - [id number] ? [id number] INDICATIONS: 20 weeks gestation of ?Z3A.20 detailed EVALUATION: Num Of Fetuses: ? 1 Cardiac Activity: ? Observed, normal rhythm Presentation: ? Cephalic Placenta: ? Left lateral P. Cord Insertion: ?Within Normal Limits Amniotic Fluid ALPHONSO FV: ?Subjectively normal for gestational age --------- BIOMETRY: --------- BPD: ?47.1 ??mm ? G.Age: ?? 20w 2d OFD: ?62.5 ??mm HC: ?175.3 ??mm ? G.Age: ?? 20w 0d AC: ?145.4 ??mm ? G.Age: ?? 19w 6d FL: ? 33.9 ??mm ? G.Age: ?? 20w 5d HUM: ?33.3 ??mm ? G.Age: ?? 21w 2d CER: ?20.8 ??mm ? G.Age: ?? 19w 6d NFT: ?3.43 ??mm NB: ?7.5 ??mm LV: ?6.1 ??mm CM: ?5.2 ??mm CI: ?75.4 ??% ? 70 - 86 FL/HC: ? 19.3 ??% ? 16.8 - 19.8 HC/AC: ? 1.21 ?1.09 - 1.39 FL/BPD: ?72.0 ??% FL/AC: ? 23.3 ??% ? - 24 Est. FW: ? 339 ??gm ?0 lb 12 oz OB HISTORY: : ?6 ? Term: ?? 4 GESTATIONAL AGE: U/S Today: ? 20w 2d ?NAZIA: ?? 10/16/24 Best: ?20w 2d ?? Det. By: ??Early ?NAZIA: ?? 10/16/24 ? Ultrasound ? (02/26/24) TARGETED ANATOMY: Central Nervous System Calvarium/Cranial V.: ??Within Normal Limits Intracranial Monica: ? Within Normal Limits Cavum: ? Within Normal Limits Parenchyma: ?Within Normal Limits Lateral Ventricles: ?Within Normal Limits Choroid Plexus: ?Within Normal Limits Cereb./Vermis: ? Within Normal Limits Cisterna Magna: ?Within Normal Limits Midline Falx: ?Within Normal Limits Spine Cervical: ?Visualized Thoracic: ?Visualized Lumbar: ?Visualized Sacral: ?Visualized Shape/Curvature: ? Visualized Head/Neck Face: ?Within Normal Limits Lips: ?Within Normal Limits Neck: ?Within Normal Limits Nuchal Fold: ? Within Normal Limits Nasal Bone: ?Present Profile: ? Visualized Orbits/Eyes: ? Visualized Mandible: ?Visualized Maxilla: ? Visualized Thorax Thoracic Contour: ?Within Normal Limits Lungs: ? Visualized 4 Chamber View: ?Within Normal Limits Cardiac Activity: ?Normal Rhythm Rt Outflow Tract: ?Visualized Lt Outflow Tract: ?Visualized Aortic Arch: ? Visualized Ductal Arch: ? Visualized SVC: ? Visualized Cardiac Weston: ?Visualized Diaphragm: ? Visualized 3 Vessel View: ? Visualized 3 V Trachea View: ?Visualized IVC: ? Visualized Crossing: ?Visualized Abdomen Ventral Wall: ?Visualized Cord Insertion: ?Visualized Situs: ? Normal Stomach: ? Visualized Liver: ? Visualized Lt Kidney: ? Visualized Rt Kidney: ? Visualized Bladder: ? Visualized Bowel: ? Visualized Extremities Lt Humerus: ?Within Nomal Limits Rt Humerus: ?Within Normal Limits Lt Forearm: ?Within Normal Limits Rt Forearm: ?Within Normal Limits Lt Hand: ? Within Normal Limits Rt Hand: ? Within Normal Limits Lt Femur: ?Within Normal Limits Rt Femur: ?Within Normal Limits Lt Lower Leg: ?Within Normal Limits Rt Lower Leg: ?Within Normal Limits Lt Foot: ? Visualized Rt Foot: ? Visualized Other Umbilical Cord: ?2 Vessel Cord Genitalia: ? Female CERVIX UTERUS ADNEXA: Right Ovary Size(cm) ? 2.5 ??x ?? 1.6 ?x ??1.1 ? Vol(ml): 2.3 Visualized Left Ovary Size(cm) ? 3.0 ??x ?? 2.1 ?x ??1.5 ? Vol(ml): 4.9 Visualized Procedure Note Romana Torres MD - 05/31/2024 OBSTETRICS REPORT (Signed Final 05/31/2024 08:53 am) PATIENT INFO: ID #: [id number] : [birth year] (38 yrs)(F) Name: JOSE JUAN LUQUE Visit Date: 05/31/2024 08:00 am PERFORMED BY: Performed By: Arcelia Bateman RDMS Attending: Romana Torres MD Referred By: KAILA HAMEED Location: [place] SERVICE(S) PROVIDED: [facility] - Detailed Morphology - [id number] INDICATIONS: 20 weeks gestation of Z3A.20 detailed EVALUATION: Num Of Fetuses: 1 Cardiac Activity: Observed, normal rhythm Presentation: Cephalic Placenta: Left lateral P. Cord Insertion: Within Normal Limits Amniotic Fluid ALPHONSO FV: Subjectively normal for gestational age --------- BIOMETRY: --------- BPD: 47.1 mm G.Age: 20w 2d OFD: 62.5 mm HC: 175.3 mm G.Age: 20w 0d AC: 145.4 mm G.Age: 19w 6d FL: 33.9 mm G.Age: 20w 5d HUM: 33.3 mm G.Age: 21w 2d CER: 20.8 mm G.Age: 19w 6d NFT: 3.43 mm NB: 7.5 mm LV: 6.1 mm CM: 5.2 mm CI: 75.4 % 70 - 86 FL/HC: 19.3 % 16.8 - 19.8 HC/AC: 1.21 1.09 - 1.39 FL/BPD: 72.0 % FL/AC: 23.3 % 20 - 24 Est. FW: 339 gm 0 lb 12 oz OB HISTORY: : 6 Term: 4 GESTATIONAL AGE: U/S Today: 20w 2d NAZIA: 10/16/24 Best: 20w 2d Det. By: Early NAZIA: 10/16/24 Ultrasound (02/26/24) TARGETED ANATOMY: Central Nervous System Calvarium/Cranial V.: Within Normal Limits Intracranial Monica: Within Normal Limits Cavum: Within Normal Limits Parenchyma: Within Normal Limits Lateral Ventricles: Within Normal Limits Choroid Plexus: Within Normal Limits Cereb./Vermis: Within Normal Limits Cisterna Magna: Within Normal Limits Midline Falx: Within Normal Limits Spine Cervical: Visualized Thoracic: Visualized Lumbar: Visualized Sacral: Visualized Shape/Curvature: Visualized Head/Neck Face: Within Normal Limits Lips: Within Normal Limits Neck: Within Normal Limits Nuchal Fold: Within Normal Limits Nasal Bone: Present Profile: Visualized Orbits/Eyes: Visualized Mandible: Visualized Maxilla: Visualized Thorax Thoracic Contour: Within Normal Limits Lungs: Visualized 4 Chamber View: Within Normal Limits Cardiac Activity: Normal Rhythm Rt Outflow Tract: Visualized Lt Outflow Tract: Visualized Aortic Arch: Visualized Ductal Arch: Visualized SVC: Visualized Cardiac Weston: Visualized Diaphragm: Visualized 3 Vessel View: Visualized 3 V Trachea View: Visualized IVC: Visualized Crossing: Visualized Abdomen Ventral Wall: Visualized Cord Insertion: Visualized Situs: Normal Stomach: Visualized Liver: Visualized Lt Kidney: Visualized Rt Kidney: Visualized Bladder: Visualized Bowel: Visualized Extremities Lt Humerus: Within Nomal Limits Rt Humerus: Within Normal Limits Lt Forearm: Within Normal Limits Rt Forearm: Within Normal Limits Lt Hand: Within Normal Limits Rt Hand: Within Normal Limits Lt Femur: Within Normal Limits Rt Femur: Within Normal Limits Lt Lower Leg: Within Normal Limits Rt Lower Leg: Within Normal Limits Lt Foot: Visualized Rt Foot: Visualized Other Umbilical Cord: 2 Vessel Cord Genitalia: Female CERVIX UTERUS ADNEXA: Right Ovary Size(cm) 2.5 x 1.6 x 1.1 Vol(ml): 2.3 Visualized Left Ovary Size(cm) 3.0 x 2.1 x 1.5 Vol(ml): 4.9 Visualized IMPRESSION 2nd Trimester - Detailed Morphology - Summary Single intrauterine with a gestational age of 20w 2d based on Early Ultrasound (02/26/24) Composite age based on the current ultrasound alone is 20w 2d. Current growth parameters are consistent with prior dating indicating normal growth. Amniotic fluid volume is Subjectively normal for gestational age Detailed anatomic evaluation was performed and a two vessel cord is seen. No other structural abnormalities are noted. Thank you for letting us participate in the care of this patient. If you are a health care provider and have any questions regarding this report, please contact the number above. For patients who have questions, please contact the health primary care md that requested your imaging first. Romana Torres, Staff Physician Electronically Signed Final Report 05/31/2024 08:53 am Kaila Hameed MD IMG OB ORDERABL ES documented in this encounter Visit Diagnoses Diagnosis Acute pelvic pain, female Unspecified symptom associated with female genital organs Chest discomfort Other chest pain documented in this encounter Care Teams Rubber Curer Relationship Specialty Start Date End Date Kenia Lawrence, [employer]CHANT [employer] [address] [place] [address] PCP - General Family Medicine 09/29/23 documented as of this encounter
--- OUTSIDE RECORDS SUMMARY | 2024-09-20 11:02 | XMS_ITS | Encounter Summary ---
Author Organization [facility] [place] [address] Care Team Providers Care Technical Services Librarian Name Role Phone Mleinda Kenia Marilin CAMPBELL Primary Care Provider +1- [phone] Encounter Details Date Type Department Care Team (Latest Contact Info) Description 05/31/2024 Travel Social History Tobacco Use Types Packs/Day Years Used Date Smoking Tobacco: Every Day Cigarettes 1 15 Smokeless Tobacco: Never Comments:Smokess 0.5 - 1 pac ks of cigarettes daily x 13 - 14 years. Alcohol Use Standard Drinks/Week Comments Not Currently 0 (1 standard drink = 0.6 oz pur e alcohol) [facility] Utilities Answer Date Recorded In the past 12 months has e [employer], gas, oil, or water [employer] threatened to shut off services in your [...] in a detention (including now)? No 03/02/2024 IPV Inpatient Questions [...] AM EST Routine Obstetrics [place] [address] Emili Cabrera MD [facility] [place] [address] 09/26/2024 6:00 PM EST Appointment [facility] Birthing [place] [phone] 10/16/2024 [place] [address] Dudley Aguilar MD [facility] [place] [address] 11/08/2024 10:00 AM EST Hospital Encounter Non-Invasive Cardiology Lab [place] [phone] Arrived documented as of this encounter Visit Diagnoses Not on filedocumented in this encounter Care Teams Technical Services Librarian Relationship Specialty Start Date End Date Kenia Lawrence APRN [address] [place] [address] PCP - General Family Medicine 09/29/23 documented as of this encounter
--- OUTSIDE RECORDS SUMMARY | 2024-09-20 11:02 | XMS_ITS | Encounter Summary ---
Author Organization [facility] Address [facility] [place] [address] Care Team Providers Care Public Address Announcer Name Role Phone MelindaKenia ford ADRIAN Primary Care Provider +1- [phone] Encounter Details Date Type Department Care Team (Late st Contact Info) Description 05/07/2024 10:00 AM EDT TH Visit (TeleHealth) Cardiology at [address] [address] Ej Zurita MD [facility] [place] [address] Chest discomfort Social History Tobacco Use Types Packs/Day Years Used Date Smoking Tobacco: Every Day Cigarettes 1 15 Smokeless Tobacco: Never Comments:Smokess 0.5 - 1 pac ks of cigarettes daily x 13 - 14 years. Alcohol Use Standard Drinks/Week Comments Not Currently 0 (1 standard drink = 0.6 oz pur e alcohol) [facility] Utilities Answer Date Recorded In the past 12 months has e [employer], gas, oil, or water [employer] threatened to shut off services in your [...] health care facility (including now)? No 03/02/2024 Estimated Date of Delivery Comme nts Yes 10/16/2024 Based on Other B asis Sex and Gender Information Value Date Recorded Sex Assigned at Female 03/02/2024 7:39 AM EDT Gender Identity Female 03/02/2024 7:39 AM EDT Sexual Orientation Bisexual 03/02/2024 7: 39 AM EDT documented as of this encounter Patient Instructions * Patient Instructions* Ej Zurita MD - 05/07/2024 10:00 AM EDT Your provider today: Dr. Zurita Team: Blue Team Primary Nurse: Imelda Moon Primary Sash Sticker/Scheduling: Gina May To contact our office during business hours please use phone [phone] and fax [phone]. option 1- for appointment needs option 2- if you are a provider option 3- for prescription needs option 4- if you'd like the leave a message for a nurse Your call will be answered by a general cardiology manufacturing scheduler who will direct your call. After business hours, call [phone] and ask to speak to the industrial maintenance instructor consulting it architect. documented in this encounter Progress Notes * Ej Zurita MD - 05/07/2024 10:00 AM EDT Images from the original note were not included. [facility] [place] [address] CARDIOLOGY OUTPATIENT PROGRESS NOTE PRIMARY CARE PROVIDER: Kenia Lawrence APRN REFERRING PROVIDER: Kenia Lawrence PROBLEM LIST: Patient Active Problem List Diagnosis Chronic hypertension in Encounter for induction of labor [facility] SQ ICD, single, in situ Pulse generator: Emblem MRI S-ICD Pulse Generator Model A219 Serial Number [id number] Implanted 11/12/21 Ventricular electrode: SQ electrode Model 3501 Bipolar Serial Number [id number] Implanted 11/12/21 Cigarette smoker Coronary artery vasospasm [...] disease Added automatically from request for surgery [id number] Borderline personality disorder Post-traumatic stress disorder, chronic [...] Current Outpatient Medications Medication Sig Dispense Refill amLODIPine (Norvasc) 10 mg tablet Take 1 tablet by mouth daily. 90 tablet 3 nitroGLYcerin (Nitrostat) 0.4 mg Tablet, Sublingual Place 1 tablet under the tongue every 5 minutesas needed for Chest pain. 30 tablet 1 terconazole (TERAZOL 7) 0.4 % Cream Place 1 applicator vaginally nightly. (Patient not taking: Reported on 04/21/2024) 45 g 0 diazePAM (Valium) 2 mg tablet Take 1 tablet by mouth Three Times Daily for DHE. meclizine (Antivert) 25 mg chewable tablet 1/2 tablet as needed Orally up to three times a day for 7 days Antacid-Antigas 200-200-20 mg/5 mL Suspension COMBINE 10 MLS WITH LIDOCAINE ORALLY THREE TIMES A DAY Strength: 200-200-20 mg/5 mL 355 mL 1 famotidine (Pepcid) 40 mg Tablet Take 1 tablet by mouth 2 times daily. (Patient not taking: Reported on 04/21/2024) 180 tablet 2 acetaminophen (Tylenol) 325 mg Tablet Take 3 tablets by mouth every 6 hours as needed for Pain. 30 tablet 1 polyethylene glycoL (Miralax) 17 gram Powder in Packet Take 17 g by mouth daily. 14 each 0 fluticasone propionate (Flonase) 50 mcg/actuation [place], Suspension 1 spray by Each Nare route [...] Take 1 tablet by mouth as needed. No current facility-administered medications for this visit. Subjective: Patient ID: Aniya Luque is a 38 y.o. female here for counseling regarding maternal cardiovascular risk in early . HPI: Summary: Aniya has a history [...] Estimated Date of Delivery: 10/16/24 Currently almost 17 weeks . +Has ED visits for chest pain since 2021. She typically is cleared to go home from the emergency department after an EKG and troponins. +seeing PCP Kenia Lance often. Seeing often. +joint pain, difficulty ambulating + random chest discomfort, not associated with exertion, lasting couple minutes, sometimes off and on throughout the day + using SLN occasionally, a bit more than last visit Interrogate device: [employer] no shocks on interrogation via EP service TTE 04/2024: -Left ventricular systolic function is normal. Left ventricular ejection fraction is estimated visually at 65%. There are no segmental wall motion abnormalities. -The right ventricle is of normal size. Right ventricular systolic function is normal. -Normal valves. -Compared with the previous echo performed on 03/14/22, there is no significant change. Exercise: Aching legs and foot pain. Goes on walks with her children amLODIPine (Norvasc) 10 mg tablet nitroGLYcerin (Nitrostat) 0.4 mg Tablet, Sublingual terconazole (TERAZOL 7) 0.4 % Cream diazePAM (Valium) 2 mg tablet meclizine (Antivert) 25 mg chewable tablet Antacid-[place]ig[place] 200-200-20 mg/5 mL Suspension famotidine (Pepcid) 40 mg Tablet acetaminophen (Tylenol) 325 mg Tablet polyethylene glycoL (Miralax) 17 gram Powder in Packet fluticasone propionate (Flonase) 50 mcg/actuation [place], Suspension cetirizine (ZyrTEC) 10 mg Tablet fluticasone [...] Mother Social History: -Lives with Todd-2 July; 8 in June -Partner recently incarcerated Objective: [...] 130 11/04/2021 Assessment: Aniya Luque is a 38 y.o. patient presenting for assessment of maternal [...] cardiac contraindication to continued at this time. I have increasedher long acting vasodilators (added imdur) as below for chest pain. Plan: Continue amlodipine 10 mg daily Add isosorbide mononitrate 15 mg daily, explained similarity to SLN and the fact that this is a lower more sustained maintenance dose to avoid the need for boluses of SLN as often SLN PRN No shocks on ICD. We should continue interrogating her device throughout her . Delivery timing to be determined by her obstetrics team/needs and desire to continue . Delivery [facility] to be [facility] birthing pavilion if she elects to continue this . Return in about 2 months (around 07/08/2024). Thank you for the opportunity to participate [...] procedures ?referring and communicating with other health complex care nurse practitioner (when not separately reported) ?documenting clinical information in the electronic or other health record ?independently interpreting results (not separately reported) and communicating results to the patient/family/caregiver ?care coordination (not separately reported) documented in this encounter Plan of Treatment Upcoming Encounters Date Type Department Care Team (Late st Contact Info) Description 09/21/2024 8:15 AM EST Routine Obstetrics [place] [address] Emili Cabrera MD [facility] DR [place]ERNAL [place] [address] 09/26/2024 6:00 PM EST Appointment [facility] [place] [phone] 10/16/2024 Hospital [place] [phone] Dudley Aguilar MD [facility] DR OBSTETRICS [place] [address] 11/08/2024 10:00 AM EST Hospital Encounter Non-Invasive [place] [phone] Arrived documented as of this encounter Visit Diagnoses Diagnosis Chest discomfort Other chest pain documented in this encounter Care Teams Public Address Announcer Relationship Specialty Start Date End Date Kenia Lawrence APRN [address] [place] [address] PCP - General Family Medicine 09/29/23 documented as of this encounter
--- OUTSIDE RECORDS SUMMARY | 2024-09-20 11:02 | XMS_ITS | Encounter Summary ---
Author Organization [facility] Address [facility] [place] [address] Care Team Providers Care Industrial Relations Manager Name Role Phone MelindaKenia ford ADRIAN Primary Care Provider [phone]- [phone] Reason for Visit * Reason Comments Routine Visit Follow-up Encounter Details Date Type Department Care Team (Late st Contact Info) Description 07/28/2024 11:15 AM EDT Routine Obstetrics [place] [address] Kaila Hameed MD [facility] [address] OBSTETRICS [place] [address] GA: 28w4d Social History Tobacco Use Types Packs/Day Years Used Date Smoking Tobacco: Every Day Cigarettes 1 15 Smokeless Tobacco: Never Comments:Smokess 0.5 - 1 pac ks of cigarettes daily x 13 - 14 years. Alcohol Use Standard Drinks/Week Comments Not Currently 0 (1 standard drink = 0.6 oz pur e alcohol) [facility] Utilities Answer Date Recorded In the past 12 months has e(ye)BRAIN, gas, oil, or water [employer] threatened to shut off services in your [...] in a fci (including now)? No 03/02/2024 DH IPV Inpatient [...] Sign Reading Time Taken Comments Blood Pressure 120/78 07/28/2024 11:30 AM EDT Pulse - - Temperature - - Respiratory Rate - - Oxygen Saturation - - Inhaled Oxygen Concentration - - Weight 78.5 kg (173 lb 1.6 oz) 07/28/2024 11:30 AM EDT Height - - Body Mass Index 29.71 07/15/2024 1:30 PM EDT documented in this encounter Progress Notes * Kaila Hameed MD - 07/28/2024 11:15 AM EDT FM felt but less, no LOF mucus d/c, no bleeding. C/o intermittent lower abdominal pain and back pain. C/o discomfort with urination. Had cardiology f/u recently 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 History of COVID-19 Z86.16 Cigarette smoker F17.210 [facility] ICD, single, in situ Z95.810 Recurrent major depressive episodes, moderate F33.1 Encounter for induction of labor Z34.90 Chronic hypertension in O10.919 BP 120/78 Wt 78.5 kg (173 lb 1.6 oz) LMP (LMP Unknown) BMI 29.71 kg/m?? Abdomen soft, NT SVE closed posterior, firm UA no leuks, nitrites, or RBC's NST today support belt recommended. FOB indicates that this helped her with similar symptoms in prior GCT, CBC ordered (unable to do today) kept avoiding GCT in last UP/C baseline reordered F/u 2 weeks * Faiza Poe RN - 07/28/2024 11:15 AM EDT GA 28w, 4d Add-on 07/28/2024 12:06 PM NST Fetus A HR (beats/min) 140 HR Variability moderate (amplitude range 6 to 25 bpm) HR Accelerations present;greater than/equal to 10 bpm (32 wks gest or less);lasts at least 10seconds (32 wks gest or less) HR Decelerations absent Contraction Frequency (Minutes) None Nonstress Test Interpretation Reactive <32 week: two 10 bpm accelerations lasting 10 seconds Overall Impression Reassuring for gestational age Comments Total time on EFM: 22 minutes documented in this encounter Plan of Treatment Upcoming Encounters Date Type Department Care Team (Late st Contact Info) Description 09/21/2024 8:15 AM EST Routine Obstetrics [place] [phone] Emili Cabrera MD [facility] [address] [place] [address] 09/26/2024 6:00 PM EST Appointment [facility] [place] [phone] 10/16/2024 Hospital [place] [phone] Dudley Aguilar MD [facility] DR OBSTETRICS [place] [address] 11/08/2024 10:00 AM EST Hospital Encounter [place] [phone] Arrived documented as of this encounter Procedures Procedure Name Priority Date/Time Associated Diagnosis Comments PROTEIN/CREATININE RATIO, URINE Routine 07/28/2024 11:25 AM EDT Chronic hypertension in POCT URINE DIPSTICK Routine 07/28/2024 Chronic hypertension in documented in this encounter Results * US OB Follow Up (08/09/2024 9:26 AM EDT) WORKSTATION ID [id number] DH RAD Anatomical Region Laterality Modality Pelvis, Abdomen Ultrasound 08/09/2024 9:16 AM EDT Impressions 08/09/2024 9:53 AM EDT 3rd Trimester Summary Single intrauterine with a gestational age of 30w 2d based on Early Ultrasound ??(02/26/24) Composite age based on the current ultrasound alone is 31w 0d. Estimated weight 1687g corresponds to the 64th percentile for 30w 2d. Current growth parameters are consistent with prior dating indicating normal growth. Amniotic fluid volume is Normal Anatomical survey is limited due to the late gestational age. 2 Vessel Cord Thank you for letting us participate in the care of this patient. If you are a health care provider and have any questions regarding this report, please contact the number above. For patients who have questions, please contact the health care assistant that requested your imaging first. ?Lexie Ibraihm, Physician Electronically Signed Final Report ?? 08/09/2024 09:52 am Narrative 08/09/2024 9:53 AM EDT OBSTETRICS REPORT ? (Signed Final 08/09/2024 09:52 am) PATIENT INFO: ID #: ? [id number] ?: ??[birth year] (39 yrs)(F) Name: ? JOSE JUAN LUQUE ? Visit Date: 08/09/2024 09:16 am PERFORMED BY: Performed By: ? Magdalena Walsh RDMS Attending: ?Lexie Ibrahim MD Referred By: ?KAILA HAMEED Location: ? [place] SERVICE(S) PROVIDED: UOBFOL - Efw - Growth ??- [place] - [id number] INDICATIONS: 30 weeks gestation of ? Z3A.30 growth Single umbilical artery VITAL SIGNS: Weight (lb): 173.0 Height: ?5'4 ?BMI: ?29.69 EVALUATION: Num Of Fetuses: ?1 Heart Rate(bpm): ?? 158 Cardiac Activity: ?Observed, normal rhythm Presentation: ?Cephalic Placenta: ?Fundal Left lateral P. Cord Insertion: ? Within Normal Limits Amniotic Fluid ALPHONSO FV: ?Normal ALPHONSO Sum(cm) ? Largest Pocket(cm) 13.6 ?4.7 RUQ(cm) ? RLQ(cm) ? LUQ(cm) ?LLQ(cm) 4.6 ? 0.0 ? 4.3 ?4.7 --------- BIOMETRY: --------- BPD: ?76.6 ??mm ? G.Age: ?? 30w 5d ?52 ?? % OFD: ?99.7 ??mm HC: ?282.8 ??mm ? G.Age: ?? 31w 0d ?34 ?? % AC: ?269.6 ??mm ? G.Age: ?? 31w 0d ?69 ?? % FL: ? 59.7 ??mm ? G.Age: ?? 31w 1d ?59 ?? % HUM: ?52.1 ??mm ? G.Age: ?? 30w 3d ?55 ?? % CER: ?38.4 ??mm ? G.Age: ?? 32w 5d ?85 ?? % LV: ?6.6 ??mm CM: ?5.0 ??mm CI: ?76.8 ??% ? 70 - 86 FL/HC: ? 21.1 ??% ? 19.2 - 21.4 HC/AC: ? 1.05 ?0.99 - 1.21 FL/BPD: ?77.9 ??% ? 71 - 87 FL/AC: ? 22.1 ??% ? 20 - 24 Est. FW: ?1687 ?? gm ?3 lb 12 oz ?64 ?? % OB HISTORY: : ?6 ? Term: ?? 4 GESTATIONAL AGE: U/S Today: ? 31w 0d ?NAZIA: ?10/11/24 Best: ?30w 2d ?? Det. By: ??Early ?NAZIA: ?10/16/24 ? Ultrasound ? (02/26/24) -------- ANATOMY: -------- Cranium: ? Visualized Cavum: ? Visualized Ventricles: ?Visualized Choroid Plexus: ?Visualized Cerebellum: ?Visualized Posterior Fossa: ? Visualized Nuchal Fold: ? Not evaluated at this gestational age Face: ?Limited views Heart: ? 4-chamber view appears normal RVOT: ?Visualized LVOT: ?Visualized Diaphragm: ? Visualized Stomach: ? Visualized Abdomen: ? Within Normal Limits Abdominal Wall: ?Not seen due to late gestational age Cord Vessels: ?2 Vessel Cord Kidneys: ? Visualized Bladder: ? Visualized Spine: ? Limited views Upper Extremities: ? Limited views Lower Extremities: ? Limited views CERVIX UTERUS ADNEXA: Right Ovary Not visualized Left Ovary Not visualized Procedure Note Lexie Ibrahim MD - 08/09/2024 OBSTETRICS REPORT (Signed Final 08/09/2024 09:52 am) PATIENT INFO: ID #: [id number] : [birth year] (39 yrs)(F) Name: JOSE JUAN LUQUE Visit Date: 08/09/2024 09:16 am PERFORMED BY: Performed By: Magdalena Walsh RDMS Attending: Lexie Ibrahim MD Referred By: KAILA HAMEED Location: [place] SERVICE[facility]S) [facility] - [id number] INDICATIONS: 30 weeks gestation of Z3A.30 growth Single umbilical artery VITAL SIGNS: Weight (lb): 173.0 Height: 5'4 BMI: 29.69 EVALUATION: Num Of Fetuses: 1 Heart Rate(bpm): 158 Cardiac Activity: Observed, normal rhythm Presentation: Cephalic Placenta: Fundal Left lateral P. Cord Insertion: Within Normal Limits Amniotic Fluid ALPHONSO FV: Normal ALPHONSO Sum(cm) Largest Pocket(cm) 13.6 4.7 RUQ(cm) RLQ(cm) LUQ(cm) LLQ(cm) 4.6 0.0 4.3 4.7 --------- BIOMETRY: --------- BPD: 76.6 mm G.Age: 30w 5d 52 % OFD: 99.7 mm HC: 282.8 mm G.Age: 31w 0d 34 % AC: 269.6 mm G.Age: 31w 0d 69 % FL: 59.7 mm G.Age: 31w 1d 59 % HUM: 52.1 mm G.Age: 30w 3d 55 % CER: 38.4 mm G.Age: 32w 5d 85 % LV: 6.6 mm CM: 5.0 mm CI: 76.8 % 70 - 86 FL/HC: 21.1 % 19.2 - 21.4 HC/AC: 1.05 0.99 - 1.21 FL/BPD: 77.9 % 71 - 87 FL/AC: 22.1 % 20 - 24 Est. FW: 1687 gm 3 lb 12 oz 64 % OB HISTORY: : 6 Term: 4 GESTATIONAL AGE: U/S Today: 31w 0d NAZIA: 10/11/24 Best: 30w 2d Det. By: Early NAZIA: 10/16/24 Ultrasound (02/26/24) -------- ANATOMY: -------- Cranium: Visualized Cavum: Visualized Ventricles: Visualized Choroid Plexus: Visualized Cerebellum: Visualized Posterior Fossa: Visualized Nuchal Fold: Not evaluated at this gestational age Face: Limited views Heart: 4-chamber view appears normal RVOT: Visualized LVOT: Visualized Diaphragm: Visualized Stomach: Visualized Abdomen: Within Normal Limits Abdominal Wall: Not seen due to late gestational age Cord Vessels: 2 Vessel Cord Kidneys: Visualized Bladder: Visualized Spine: Limited views Upper Extremities: Limited views Lower Extremities: Limited views CERVIX UTERUS ADNEXA: Right Ovary Not visualized Left Ovary Not visualized IMPRESSION 3rd Trimester Summary Single intrauterine with a gestational age of 30w 2d based on Early Ultrasound (02/26/24) Composite age based on the current ultrasound alone is 31w 0d. Estimated weight 1687g corresponds to the 64th percentile for 30w 2d. Current growth parameters are consistent with prior dating indicating normal growth. Amniotic fluid volume is Normal Anatomical survey is limited due to the late gestational age. 2 Vessel Cord Thank you for letting us participate in the care of this patient. If you are a health care provider and have any questions regarding this report, please contact the number above. For patients who have questions, please contact the health care assistant that requested your imaging first. Lexie Ibrahim, Physician Electronically Signed Final Report 08/09/2024 09:52 am Kaila Hameed MD IMG US OB ORDERABL ES * Gestational Diabetes Screen (08/09/2024 8:30 AM EDT) Glucose Gestational Screen, 1 Hour 101 65 - 134 mg/dL 08/09/2024 9:56 AM EDT [facility] Oral Glucose Dose 50 gm 08/09/2024 9:56 AM EDT [facility] Blood VENOUS BLOOD SPECIMEN / Unknown Venipuncture / Unknown 08/09/2024 8:30 AM EDT 08/09/2024 8:31 AM EDT Kaila Hameed MD CHEMISTRY ORDERABL ES [facility] [place] [address] * (ABNORMAL) CBC (with Diff) (08/09/2024 8:30 AM EDT) White Blood Cell 11.33(H) 4.00 - 9.50 x10(3)/mc L 08/09/2024 9:58 AM EDT [facility] Red Blood Cell 3.35(L) 4.00 - 5.21 x10(6)/mc L 08/09/2024 9:58 AM EDT [facility] Hemoglobin 9.5(L) 11.7 - 15.5 g/dL 08/09/2024 9:58 AM EDT [facility] Hematocrit 29.3(L) 35.7 - 45.8 % 08/09/2024 9:58 AM EDT [facility] Mean Cell Volume 87.5 82.6 - 94.4 fL 08/09/2024 9:58 AM EDT [facility] Mean Cell Hemoglobin 28.4 27.1 - 32.0 pg 08/09/2024 9:58 AM EDT [facility] Mean Cell Hemoglobin Concentration 32.4 31.7 - 35.0 g/dL 08/09/2024 9:58 AM EDT [facility] Platelet 324 145 - 357 x10(3)/mc L 08/09/2024 9:58 AM EDT [facility] Mean Platelet Volume 10.7 7.6 - 12.9 fL 08/09/2024 9:58 AM EDT [facility] RDW Standard Deviation 51.0(H) 37.0 - 46.0 fL 08/09/2024 9:58 AM EDT [facility] RDW coefficient of variation 16.1(H) 11.5 - 14.1 % 08/09/2024 9:58 AM [facility] NRBC% auto 0.0 % 08/09/2024 9:58 AM [facility] NRBC Absolute <0.01 <0.01 x10(3)/mc L 08/09/2024 9:58 AM [facility] Neutrophil % 69.1 % 08/09/2024 9:58 AM [facility] Neutrophil Absolute (ANC) - Automated 7.82(H) 1.70 - 6.10 x10(3)/mc L 08/09/2024 9:58 AM [facility] Lymph % 21.7 % 08/09/2024 9:58 AM [facility] Lymph Absolute 2.46 0.90 - 3.20 x10(3)/mc L 08/09/2024 9:58 AM [facility] Monocyte % 4.9 % 08/09/2024 9:58 AM [facility] Monocyte Absolute 0.56 0.30 - 0.90 x10(3)/mc L 08/09/2024 9:58 AM [facility] Eos % 2.6 % 08/09/2024 9:58 AM [facility] Eos Absolute 0.30 0.00 - 0.40 x10(3)/mc L 08/09/2024 9:58 AM [facility] Basophil % 0.3 % 08/09/2024 9:58 AM [facility] Baso Absolute <0.04 0.00 - 0.10 x10(3)/mc L 08/09/2024 9:58 AM [facility] Immature Gran % 1.4 % 9:58 AM [facility] Immature Gran Absolute 0.16(H) 0.00 - 0.04 x10(3)/mc L 08/09/2024 9:58 AM EDT [facility] Blood VENOUS BLOOD SPECIMEN / Unknown Venipuncture / Unknown 08/09/2024 8:30 AM EDT 08/09/2024 8:31 AM EDT Kaila Hameed MD HEMATOLOGY ORDERAB LES Performing Organization Address [facility] Co de Phone Number [facility] [place] [address] * Protein/Creatinine Ratio, urine (07/28/2024 11:25 AM EDT) Protein, Urine 10 0 - 12 mg/dL 07/28/2024 12:48 PM EDT [facility] Creatinine, Urine 73 mg/dL 07/28/2024 12:48 PM EDT [facility] Protein / Creatinine Ratio, Urine 0.1 ratio 07/28/2024 12:48 PM EDT [facility] Urine URINE SPECIMEN OBTAINED BY CLEAN CATCH PROCEDURE / Unknown Non Blood Collection / Unknown 07/28/2024 11:25 AM EDT 07/28/2024 12:05 PM EDT Kaila Hameed MD URINE ORDERABLES Performing Organization Address [facility] Co de Phone Number [facility] [place] [address] * (ABNORMAL) POCT urine dipstick (07/28/2024) POC Sp [place] 1.0(A) 1.002 - 1.030 POC pH, UA [...] UA neg Negative - Negative rajeev/uL Kaila Hameed MD POINT OF CARE TEST ORDERABLES documented in this encounter Visit Diagnoses Diagnosis Chronic hypertension in Benign essential hypertension complicating , childbirth, and the puerperium, unspecified as to episode of care Chronic hypertension in Benign essential hypertension complicating , childbirth, and the puerperium, unspecified as to episode of care documented in this encounter Care Teams Industrial Relations Manager Relationship Specialty Start Date End Date Kenia Lawrence APRN [address] [place] [address] PCP - General Family Medicine 09/29/23 documented as of this encounter
--- OUTSIDE RECORDS SUMMARY | 2024-09-20 11:02 | XMS_ITS | Encounter Summary ---
Author Organization [facility] [place] [address] Care Team Providers Care Recorder Helper [employer] Name Role Phone MelindaKenia ford ADRIAN Primary Care Provider +[phone]- [phone] Encounter Details Date Type Department Care Team (Late st Contact Info) Description 05/12/2024 Interpretation Only [address] [phone] Danielle Ricci MD [address] [place] [address] Social History Tobacco Use Types Packs/Day Years Used Date Smoking Tobacco: Every Day Cigarettes 1 15 Smokeless Tobacco: Never Comments:Smokess 0.5 - 1 pac ks of cigarettes daily x 13 - 14 years. Alcohol Use Standard Drinks/Week Comments Not Currently 0 (1 standard drink = 0.6 oz pur e alcohol) [facility] Utilities Answer Date Recorded In the past 12 months has [employer] gas, oil, or water [employer] threatened to shut off services in your [...] place to sleep or slept in a correction (including now)? No 03/02/2024 Estimated Date of [...] AM EST Routine Obstetrics [place] [phone] Emili Cabrera MD [facility] [place] [address] 09/26/2024 6:00 PM EST Appointment [facility] [place] [phone] 10/16/2024 Hospital [place] [phone] Dudley Aguilar MD [facility] [place] [address] 11/08/2024 10:00 AM EST Hospital Encounter Non-Invasive [place] [phone] Arrived documented as of this encounter Procedures Procedure Name Priority Date/Time Associated Diagnosis Comments US OB LIMITED Routine 05/12/2024 9:07 AM EDT documented in this encounter Results * US OB Limited (05/12/2024 9:07 AM EDT) PT CLASS O RAD ADMITDTTM [id number] [facility] PT [facility] INFO [phone]^[place] r^Danielle RAD EXAM DESC UOBLIM^US OB Limited^RIS [facility] WORKSTATION ID [id number] [facility] Anatomical Region Laterality Modality Pelvis, Abdomen Ultrasound 05/12/2024 9:07 AM EDT Impressions 05/12/2024 9:21 AM EDT No abnormalities detected. Patient to return for morphology scan in approximately 2 weeks. Thank you for letting us participate in the care of this patient. ??If you are a health care provider and have any questions regarding this report, please contact the number below. ??For patients who have questions please contact the health career specialist that requested your imaging first. ? Electronically signed by: Luis F Valladares MD, [facility] ([phone]), at 05/12/2024 9:21 AM Narrative 05/12/2024 9:21 AM EDT EXAMINATION: US OB Limited CLINICAL HISTORY: Growth scan. LMP 01/15/24 h/o smoking and cardiac issue COMPARISON: April 15, 2024, February 26, 2024 FINDINGS: There is a single living intrauterine gestation in a variable presentation. The heart rate is 155 bpm. The placenta is posterior. There is no evidence of placenta previa. The amniotic fluid volume is subjectively normal. biometry: BPD: ??3.7cm. ??17W ??6D HC: ??14cm. ??17W ??3D AC: ??12cm. ??17W ??5D FL: ??2.36cm. ??17W ??1D Estimated weight = ??194g = ??70% for dates by LMP of January 15, 2024. Estimated gestational age by today's US = ??17W ??4D Estimated gestational age by ??LMP calculated from LMP of January 15, 2024 = ??16W 6D Procedure Note Luis F Valladares MD - 05/12/2024 EXAMINATION: US OB Limited CLINICAL HISTORY: Growth scan. LMP 01/15/24 h/o smoking and cardiacissue COMPARISON: April 15, 2024, February 26, 2024 FINDINGS: There is a single living intrauterine gestation in a variablepresentation. The heart rate is 155 bpm. The placenta is posterior. There is no evidenceof placenta previa. The amniotic fluid volume is subjectively normal. biometry: BPD: 3.7cm. 17W 6D HC: 14cm. 17W 3D AC: 12cm. 17W 5D FL: 2.36cm. 17W 1D Estimated weight = 194g = 70% for dates by LMP of December. Estimated gestational age by today's US = 17W 4D Estimated gestational age by LMP calculated from LMP of January 15, 2024 =16W 6D IMPRESSION No abnormalities detected. Patient to return for morphology scan in approximately 2 weeks. Thank you for letting us participate in the care of this patient. If youare a health care provider and have any questions regarding this report,please contact the number below. For patients who have questions please contactthe health career specialist that requested your imaging first. Danielle Ricci MD [facility] OB ORDERABLES documented in this encounter Visit Diagnoses Not on filedocumented in this encounter Care Teams Recorder Helper [employer] Relationship Specialty Start Date End Date Kenia Lawrence APRN [address] [place] [address] PCP - General Family Medicine 09/29/23 documented as of this encounter
--- OUTSIDE RECORDS SUMMARY | 2024-09-20 11:02 | XMS_ITS | Encounter Summary ---
Author Organization [facility] Address [facility] [place] [address] Care Team Providers Care Hat Brusher Machine Name Role Phone MelindaKenia ford ADRIAN Primary Care Provider [phone]- [phone] Reason for Visit * Reason Comments Routine Visit Encounter Details Date Type Department Care Team (Late st Contact Info) Description 05/31/2024 9:00 AM EDT Routine Obstetrics [place] [address] Romana Torres MD [facility] DR OBSTETRICS [place] [address] GA: 20w2d Social History Tobacco Use Types Packs/Day Years Used Date Smoking Tobacco: Every Day Cigarettes 1 15 Smokeless Tobacco: Never Comments:Smokess 0.5 - 1 pac ks of cigarettes daily x 13 - 14 years. Alcohol Use Standard Drinks/Week Comments Not Currently 0 (1 standard drink = 0.6 oz pur e alcohol) [facility] Utilities Answer Date Recorded In the past 12 months has [employer], gas, oil, or water [employer] threatened to shut off services in your [...] Sign Reading Time Taken Comments Blood Pressure 138/82 05/31/2024 9:04 AM EDT Pulse - - Temperature - - Respiratory Rate - - Oxygen Saturation - - Inhaled Oxygen Concentration - - Weight 77.5 kg (170 lb 12.8 oz) 05/31/2024 9:04 AM EDT Height - - Body Mass Index 29.32 05/27/2024 4:02 PM EDT documented in this encounter Progress Notes * Romana Torres MD - 05/31/2024 9:00 AM EDT 20 weeks. H/O cardiac arrest after vasospasm 05/05 echo was normal labs normal. Dr. Zuriat has seen her and has detailed note regarding meds and preliminary delivery plan Recent BP evaluation for gastroenteritis and vaginal itching No new cardiac symptoms Still has vag itching and milky discharge Infrequent movement, no bleeding or pain Patient Vitals for the past 24 hrs: BP 05/31/24 0904 138/82 Ultrasound: 2nd Trimester - Detailed Morphology - Summary [...] two vessel cord is seen. No other structuralabnormalities are noted. Imp 20 weeks with isolated single umbilical artery. Hx coronary vasospasm and cardiac arrest now stable with normal echo Chronic hypertension Plan RTC 4 weeks Vaginitis swab Third trimester US for growth testing at 32 weeks I noticed she still needs urine PC ratio ERB documented in this encounter Plan of Treatment Upcoming Encounters Date Type Department Care Team (Late st Contact Info) Description 09/21/2024 8:15 AM EST Routine Obstetrics [place] [address] Emili Cabrera MD [facility] MATERNAL [place] [address] 09/26/2024 6:00 PM EST Appointment [facility] [place] [phone] 10/16/2024 [place] [phone] Dudley Aguilar MD [facility] OBSTETRICS [place] [address] 11/08/2024 10:00 AM EST Hospital Encounter [place] [phone] Arrived documented as of this encounter Procedures Procedure Name Priority Date/Time Associated Diagnosis Comments VAGINITIS/OSIS PANEL ([facility]/APD/NLH/CGP) Routine 05/31/2024 9:06 AM EDT Itching in the vaginal area documented in this encounter Results * Vaginitis/osis Panel ([facility]/APD/NLH/CGP) (05/31/2024 9:06 AM EDT) Bacterial Vaginosis Negative Negative, Invalid 06/03/2024 1:15 AM EDT [facility] Natalia sp. Group Negative Negative, Invalid 06/03/2024 1:15 AM EDT [facility] Natalia glabrata PCR Negative Negative, Invalid 06/03/2024 1:15 AM EDT [facility] Trichomonas vaginalis PCR Negative Negative, Invalid 06/03/2024 1:15 AM EDT [facility] Swab VAGINAL STRUCTURE / Unknown Non Blood Collection / Unknown 05/31/2024 9:06 AM EDT 05/31/2024 3:57 PM EDT Narrative [facility] - 06/03/2024 1:15 AM EDT Results from these nucleic acid amplification assay should be interpreted in conjunction with other available clinical and laboratory data. ??Negative results do not rule out a possible infection. ??Accurate results are dependent on adequate specimen collection. ??Invalid results indicate there was an error generating a result, sample recollection is suggested. ??Bacterial species targeted by the BV assay may comprise part of the normal microbiome for a significant number of women. ??Natalia sp. group target includes C. albicans, C. tropicalis, C. parapsilosis, C. dubliniensis. ??The Aptima CV/TV and BV Assay were tested on the [employer]. ?? These assays are cleared by the [place] Food & Drug Administration for clinical testing. Romana Torres MD MICROBIOLOGY - GENER AL ORDERABLES [facility] [place] [address] documented in this encounter Visit Diagnoses Diagnosis Itching in the vaginal area Pruritus of genital organs Chronic hypertension in Benign essential hypertension complicating , childbirth, and the puerperium, unspecified as to episode of care Cardiac arrest Subcutaneous defibrillator implanted 11/12/2021 documented in this encounter Care Teams Hat Brusher Machine Relationship Specialty Start Date End Date Kenia Lawrence, [employer] [address] [place], [place] [id number] PCP - General Family Medicine 09/29/23 documented as of this encounter
--- OUTSIDE RECORDS SUMMARY | 2024-09-20 11:02 | XMS_ITS | Encounter Summary ---
Author Organization [facility] [place] [address] Care Team Providers Care Underlay Stitcher Name Role Phone Melinda Kenia Marilin CAMPBELL Primary Care Provider +1- [phone] Encounter Details Date Type Department Care Team (Latest Contact Info) Description 07/15/2024 Travel Social History Tobacco Use Types Packs/Day Years Used Date Smoking Tobacco: Every Day Cigarettes 1 15 Smokeless Tobacco: Never Comments:Smokess 0.5 - 1 pac ks of cigarettes daily x 13 - 14 years. Alcohol Use Standard Drinks/Week Comments Not Currently 0 (1 standard drink = 0.6 oz pur e alcohol) [facility] Utilities Answer Date Recorded In the past 12 months has e [employer], gas, oil, or water [employer] threatened to shut off services in your [...] a skilled nursing (including now)? No 03/02/2024 IPV Inpatient Questions [...] AM EST Routine Obstetrics [place] [address] Emili Cabrera MD [facility] [place] [address] 09/26/2024 6:[address] [facility] Birthing [place] [phone] 10/16/2024 [place] [address] Dudley Aguilar MD [facility] OBSTETRICS [place] [address] 11/08/2024 10:00 AM EST Hospital Encounter Non-Invasive Cardiology Lab [place] [phone] Arrived documented as of this encounter Visit Diagnoses Not on filedocumented in this encounter Care Teams Underlay Stitcher Relationship Specialty Start Date End Date Kenia Lawrence APRN [address] [place] [address] PCP - General Family Medicine 09/29/23 documented as of this encounter
--- OUTSIDE RECORDS SUMMARY | 2024-09-20 11:02 | XMS_ITS | Encounter Summary ---
Author Organization [facility] [place] [address] Care Team Providers Care Toll Transmission Worker Name Role Phone MelindaKenia ford Marilin CAMPBELL Primary Care Provider +1- [phone] Encounter Details Date Type Department Care Team (Latest Contact Info) Description 04/23/2024 7:50 AM EDT Laboratory Appointment Lab [address] [place] [phone] Chronic hypertension in ; Acute pelvic pain, female; Chest discomfort Social History Tobacco Use Types Packs/Day Years Used Date Smoking Tobacco: Every Day Cigarettes 1 15 Smokeless Tobacco: Never Comments:Smokess 0.5 - 1 pac ks of cigarettes daily x 13 - 14 years. Alcohol Use Standard Drinks/Week Comments Not Currently 0 (1 standard drink = 0.6 oz pur e alcohol) [facility] Utilities Answer Date Recorded In the past 12 months has [employer], [employer], or water [employer] threatened to shut off services in your [...] AM EST Routine Obstetrics [place] [address] Emili Cabrera MD [facility] MATERNAL [place] [address] 09/26/2024 6:00 PM EST Appointment [facility] [place] [address] 10/16/2024 Hospital [place] [phone] Dudley Aguilar MD [facility] DR OBSTETRICS [place] [address] 11/08/2024 10:00 AM EST Hospital Encounter Non-[place]vasive [place] [phone] Arrived documented as of this encounter Procedures Procedure Name Priority Date/Time Associated Diagnosis Comments TYPE AND SCREEN VALIDITY Routine 04/23/2024 8:04 AM EDT PANORAMA SCREEN Routine 04/23/2024 8:04 AM EDT Acute pelvic pain, female Chest discomfort ABORH RECHECK STATUS Routine 04/23/2024 8:04 AM EDT HEMOGRAM Routine 04/23/2024 8:04 AM EDT Chronic hypertension in HC ABO-MICROTITER Routine 04/23/2024 8:0 4 AM EDT Chronic hypertension in DIFFERENTIAL, AUTOMATED Routine 04/23/2024 8:04 AM EDT Chronic hypertension in HEPATITIS C ANTIBODY Routine 04/23/2024 8:04 AM EDT Chronic hypertension in SYPHILIS ANTIBODY SCREEN WITH REFLEX Routine 04/23/2024 8:04 AM EDT Chronic hypertension in RUBELLA ANTIBODY, IGG Routine 04/23/2024 8:04 AM EDT Chronic hypertension in HIV SCREEN, 4TH GENERATION ([facility] [place]/CGP/APD/NLH) Routine 04/23/2024 8:04 AM EDT Chronic hypertension in HEPATITIS B SURFACE ANTIGEN Routine 04/23/2024 8:04 AM EDT Chronic hypertension in TYPE AND SCREEN ([facility] [place] [place]/CGP/KIMBERLY) Routine 04/23/2024 8:04 AM EDT Chronic hypertension in COMPREHENSIVE METABOLIC PANEL Routine 04/23/2024 8:04 AM EDT documented in this encounter Results * (ABNORMAL) Comprehensive metabolic panel (non-fasting) (04/23/2024 8:04 AM EDT) [facility] Glucose 112 65 - 199 mg/dL [facility] Comment:Diabetes: >=200 mg/d L plus symptoms Blood Urea Nitrogen 9 8 - 18 mg/dL [facility] Creatinine 0.94 0.70 - 1.20 mg/dL [facility] Sodium 138 135 - 145 mmol/L [facility] Potassium 3.6 3.5 - 5.0 mmol/L [facility] Comment: Please note: ??Patients with WBC >100,000 may have falsely elevated Potassium levels. ??For accurate Potassium quantification in these patients send serum separator tube (gold top) for subsequent determinations. ??Contact the Clinical Chemistry Laboratory if there are any questions. Chloride 99 98 - 107 mmol/L [facility] Carbon Dioxide 23 22 - 31 mmol/L [facility] Anion Gap 16(H) 5 - 15 mmol/L [facility] Calcium 9.8 8.5 - 10.5 mg/dL [facility] Protein, Total 6.5 6.1 - 8.0 g/dL [facility] Albumin 4.0 3.2 - 5.2 g/dL [facility] Aspartate Aminotransferase 10 0 - 30 unit/L [facility] Alanine Aminotransferase 11 0 - 30 unit/L [facility] Alkaline Phosphatase 93 35 - 105 unit/L [facility] Bilirubin, Total <0.2(L) 0.2 - 1.3 mg/dL [facility] Est Glomerular Filtration Rate 79 >=60 mL/min/1. 73 m?? [facility] Comment: This patient's estimated GFR [...] urine creatinine clearance. Assignment of CKD stage 1-5 for patients with an eGFR near the transition point between stages may be based on clinical assessment of muscle mass and symptoms in addition to eGFR. Blood Venous Draw / Unknown 04/23/2024 8:04 AM EDT 04/23/2024 9:13 AM EDT Narrative Resulting Agency Comment Spec In Lab Kaila Castellanos MD CHEMISTRY ORDERABL ES [facility] [place] [address] * Type and Screen Validity (04/23/2024 8:04 AM EDT) T&S only valid at [facility] Comment:This Type and Screen result is only valid at the [facility] Blood 04/23/2024 8:04 AM EDT 04/23/2024 8:11 AM EDT Narrative Resulting Agency Comment Spec In Lab Yudi Oliveira MD BLOOD BANK LAB OR DERABLES [facility] [place] [address] * ABORH Recheck Status (04/23/2024 8:04 AM EDT) ABORH Type Recheck Completed [facility] Blood 04/23/2024 8:04 AM EDT 04/23/2024 8:11 AM EDT Narrative Resulting Agency Comment Spec In Lab E Luz Oliveira MD BLOOD BANK LAB OR DERABLES Performing Organization Address City/[facility]/ZIP Co de Phone Number [facility] [place] [address] * Type and screen ([facility] [place]/CGP/[place]) (04/23/2024 8:04 AM EDT) Pathologist [facility] ABORH Type O POSITIVE [facility] Patient BB History Found [facility] Expires at [id number] on: 04/26/2024 [facility] Ab Screen Interp Negative [facility] Blood 04/23/2024 8:04 AM EDT 04/23/2024 8:04 AM EDT Narrative [facility] - 04/23/2024 8:04 AM EDT This Type and Screen result is only valid at the [facility] [place] [place] Hospital Resulting Agency Comment Spec In Lab E Luz Oliveira MD BLOOD BANK LAB OR DERABLES Performing Organization Address [facility]/ZIP Co de Phone Number [facility] [place] [address] * HIV Screen, 4th Generation ([facility] [place] [place]/CGP/APD/NLH) (04/23/2024 8:04 AM EDT) [facility] HIV Ab/Ag Screen Negative Negative [facility] Comment: This 4th Generation HIV test [...] HIV Comment Low Risk of HIV Infection [facility] Blood 04/23/2024 8:04 AM EDT 04/23/2024 8:11 AM EDT Narrative Resulting Agency Comment Spec In Lab E Luz Oliveira MD CHEMISTRY ORDERAB LES [facility] [place] [address] * Syphilis Screening Antibody with reflex RPR (04/23/2024 8:04 AM EDT) Pathologist [facility] Syphilis IgG/IgM Negative Negative [facility] Blood 04/23/2024 8:04 AM EDT 04/23/2024 8:11 AM EDT Narrative Resulting Agency Comment Spec In Lab E Luz Oliveira MD CHEMISTRY ORDERAB LES Performing Organization Address [facility] Co de Phone Number [facility] [place] [address] * (ABNORMAL) Differential, Automated (04/23/2024 8:04 AM EDT) [facility] Neutrophil % 69.1 % [facility] Neutrophil Absolute 7.03(H) 1.70 - 6.10 x10(3)/mc L [facility] Lymph % 21.6 % [facility] Lymphocytes Abs 2.2 0.9 - 3.2 x10(3)/mc L [facility] Monocyte % 5.1 % [facility] Monocyte Abs 0.5 0.3 - 0.9 x10(3)/mc L [facility] Eos % 3.3 % [facility] Eosinophils Abs 0.3 0.0 - 0.4 x10(3)/mc L [facility] Basophil % 0.4 % [facility] Baso Absolute 0.0 0.0 - 0.1 x10(3)/mc L [facility] Immature Gran % 0.50 % [facility] Comment: Immature granulocytes(IG's)percentage and absolute count will include metamyelocytes, myelocytes, and promyelocytes. Blood smears from CBCs yielding IG's will be scanned manually for concordance. If this scan disagrees with the automated IG or if promyelocytes are noted, a manual differential will be performed. Immature Gran Absolute 0.05(H) 0.00 - 0.04 x10(3)/ L [facility] Blood 04/23/2024 8:04 AM EDT 04/23/2024 8:11 AM EDT Narrative Resulting Agency Comment Spec In Lab E Luz Oliveira MD HEMATOLOGY ORDERA BLES [facility] [place] [address] * (ABNORMAL) Hemogram (04/23/2024 8:04 AM EDT) White Blood Cell 10.2(H) 4.0 - 9.5 x10(3)/[facility] Red Blood Cell 4.54 4.00 - 5.21 x10(6)/[facility] Hemoglobin 12.0 11.7 - 15.5 g/dL [facility] Hematocrit 37.3 35.7 - 45.8 % [facility] Mean Cell Volume 82.2(L) 82.6 - 94.4 fL [facility] Mean Cell Hemoglobin 26.4(L) 27.1 - 32.0 pg [facility] Mean Cell Hemoglobin Concentration 32.2 31.7 - 35.0 g/dL [facility] Platelet 264 145 - 357 x10(3)/[facility] RDW Standard Deviation 49.1(H) 37.0 - 46.0 fL [facility] RDW coefficient of variation 16.6(H) 11.5 - 14.1 % [facility] Mean Platelet Volume 11.6 7.6 - 12.9 fL [facility] NRBC% auto 0.0 % [facility] NRBC Absolute 0.000 0.000 - 0.000 x10(3)/mc L [facility] Blood 04/23/2024 8:04 AM EDT 04/23/2024 8:11 AM EDT Narrative Resulting Agency Comment Spec In Lab E Luz Oliveira MD HEMATOLOGY ORDERA BLES [facility] [place] [address] * Rubella Antibody, IgG (04/23/2024 8:04 AM EDT) Rubella Antibody IgG Positive Positive [facility] Comment: Please note: ??A positive result for this assay indicates that antibody levels are >or= 10.0 IU/mL and is considered to be an indicator of positive immune status. Blood 04/23/2024 8:04 AM EDT 04/23/2024 8:11 AM EDT Narrative Resulting Agency Comment Spec In Lab E Luz Oliveira MD CHEMISTRY ORDERAB LES [facility] [place] [address] * Hepatitis B Surface Antigen (04/23/2024 8:04 AM EDT) Hepatitis B Surface Antigen Negative Negative [facility] Blood 04/23/2024 8:04 AM EDT 04/23/2024 8:11 AM EDT Narrative Resulting Agency Comment Spec In Lab E Luz Oliveira MD CHEMISTRY ORDERAB LES [facility] [place] [address] * Panorama Screen (04/23/2024 8:04 AM EDT) Miladis Report Summary LOW RISK [facility] Comment:LOW RISK Miladis Report Note See Notes M CADE [facility] Trisomy 21 Result (JOSE) Low Risk [facility] Trisomy 18 Result (OJSE) Low Risk [facility] Trisomy 13 Result (JOSE) Low Risk [facility] Monosomy X Result (JOSE) Low Risk [facility] Triploidy Result (JOSE) Low Risk [facility] Sex of Fetus Female [facility] Miladis Footnotes See Notes MAR Y [facility] Comment: Testing Methodology DNA isolated from maternal blood, which contains placental DNA, is amplified at specific loci using a targeted PCR assay and is sequenced using a high-throughput sequencer. fraction is determined using a proprietary algorithm incorporating data from single nucleotide polymorphism-based (SNP-based) next-generation sequencing [Vannesa Bagley et al. Obstet Gynecol. 2014 May;124(2 Pt 1):210-8]. If there is sufficient fraction, sequencing data is analyzed using a proprietary SNP-based algorithm to determine the copy number for chromosomes 13, 18, 21, X and Y. If ordered, specific microdeletions will be evaluated using similar methodology [Dago NOVAK et al. Am J Obstet Gynecol. 2015 Dec;212(3):332.e1-9]. If the fraction is insufficient, signal enhancement and/or an additional algorithm to determine whether there is an increased risk for triploidy, trisomy 18, and trisomy 13 may be utilized [Jessica et al. Ultrasound Obstet Gynecol 2019; 53:73-79]. However, some samples will not produce a result due to failure to meet the necessary quality thresholds. This test has been validated on women with a reyes, twin or egg donor of at least nine weeks gestation. A result will not be available for higher order multiples and multiple gestation pregnancies with an egg donor or surrogate, or bone marrow transplant recipients. Complete test panel is not available for twin gestations and pregnancies achieved with an egg donor or surrogate. For twin pregnancies with a fraction value below the threshold for analysis, a sum of the fractions for both twins will be reported. As this assay is a screening test and not diagnostic, false positives and false negatives can occur. High risk test results need diagnostic confirmation by alternative testing methods. Low risk results do not fully exclude the diagnosis of any of the syndromes nor do they exclude the possibility of other chromosomal abnormalities or defects, which are not a part of this test. Potential sources of inaccurate results include, but are not limited to, mosaicism, low fraction, limitations of current diagnostic techniques, or misidentification of samples. This test will not identify all deletions associated with each microdeletion syndrome. This test has been validated for deletions ??> = 0.5 Mb within the 22q11.2 A-D region. This test has been validated on full region deletions only for 1p36 deletion syndrome, Cri-du-chat syndrome, Prader Willi syndrome and Angelman syndrome and may be unable to detect smaller deletions. Microdeletion risk score may be dependent upon fraction, as deletions on the maternally inherited copy are difficult to identify at lower fractions. Test results should always be interpreted by a clinician in the context of clinical and familial data with the availability of genetic counseling when appropriate. Disclaimers This test was performed by [facility]. [address], [place] [address] (CLIA ID [id number]). The performance characteristics of this test were developed by [facility]. This test has not been cleared or approved by the U.S. Food and Drug Administration (FDA). This laboratory is regulated under CLIA as qualified to perform high-complexity testing. ??2020 [employer]. All Rights Reserved. Please refer to the attached PDF report Reviewed By: Abhijit Aguilar M.D., Ph.D., [facility], Senior Clay Press Operator [facility] Track Patrol: Catalina Abarca, Ph.D., [facility] IF THE ORDERING PROVIDER HAS QUESTIONS OR WISHES TO DISCUSS THE RESULTS, PLEASE CONTACT US AT [phone] #3. Ask for the NIPT genetic counselor weatherization field technician. Blood 04/23/2024 8:04 AM EDT 04/23/2024 12:45 PM EDT Kaila Castellanos MD LAB SEND OUT ORDER SUNDEEP [facility] [place] [address] * Hepatitis C Antibody (04/23/2024 8:04 AM EDT) Hepatitis C Antibody Negative Negative [facility] Blood 04/23/2024 8:04 AM EDT 04/23/2024 8:11 AM EDT Narrative Resulting Agency Comment Spec In Lab E Luz Oliveira MD CHEMISTRY ORDERAB LES [facility] [place] [address] documented in this encounter Visit Diagnoses Diagnosis Chronic hypertension in Benign essential hypertension complicating , childbirth, and the puerperium, unspecified as to episode of care Acute pelvic pain, female Unspecified symptom associated with female genital organs Chest discomfort Other chest pain documented in this encounter Care Teams Toll Transmission Worker Relationship Specialty Start Date End Date Kenia Lawrence APRN [address] [place] [address] PCP - General Family Medicine 09/29/23 documented as of this encounter
--- OUTSIDE RECORDS SUMMARY | 2024-09-20 11:02 | XMS_ITS | Encounter Summary ---
Author Organization [facility] [place] [address] Care Team Providers Care Beef Farmer Name Role Phone Melinda Kenia Marilin CAMPBELL Primary Care Provider +1- [phone] Encounter Details Date Type Department Care Team (Latest Contact Info) Description 08/09/2024 Travel Social History Tobacco Use Types Packs/Day Years Used Date Smoking Tobacco: Every Day Cigarettes 1 15 Smokeless Tobacco: Never Comments:Smokess 0.5 - 1 pac ks of cigarettes daily x 13 - 14 years. Alcohol Use Standard Drinks/Week Comments Not Currently 0 (1 standard drink = 0.6 oz pur e alcohol) [facility] Utilities Answer Date Recorded In the past 12 months has e [employer], gas, oil, or water [employer] threatened to shut off services in your [...] a long term (including now)? No 03/02/2024 IPV Inpatient Questions [...] AM EST Routine Obstetrics [place] [address] Emili Cabrera MD [facility] MATERNAL [place] [address] 09/26/2024 6:00 PM EST Appointment [facility] Birthing [place] [phone] 10/16/2024 [place] [address] Dudley Aguilar MD [facility] OBSTETRICS [place] [address] 11/08/2024 10:00 AM EST Hospital Encounter Non-Invasive Cardiology Lab [place] [phone] Arrived documented as of this encounter Visit Diagnoses Not on filedocumented in this encounter Care Teams Beef Farmer Relationship Specialty Start Date End Date Kenia Lawrence APRN [address] [place] [address] PCP - General Family Medicine 09/29/23 documented as of this encounter
--- OUTSIDE RECORDS SUMMARY | 2024-09-20 11:02 | XMS_ITS | Encounter Summary ---
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), single, in situ Cardiac arrest Ej Zurita MD [facility] [place] [address] [facility] [place] [address] [address] Referral ID Status Reason Start Date Expiration Date V isits Requested Visits Authorized [id number] Closed Consult Only 07/22/2024 07/22/2025 1 1 Encounter Details Date Type Department Care Team (Late st Contact Info) Description 07/22/2024 Orders Only Cardiology at [address] [address] Ej Zurita MD [facility] [place] [address] Coronary artery vasospasm; ICD (implantable cardioverter-defibril lator), single, in situ; Cardiac arrest Social History Tobacco Use Types Packs/Day Years Used Date Smoking Tobacco: Every Day Cigarettes 1 15 Smokeless Tobacco: Never Comments:Smokess 0.5 - 1 pac ks of cigarettes daily x 13 - 14 years. Alcohol Use Standard Drinks/Week Comments Not Currently 0 (1 standard drink = 0.6 oz pur e alcohol) [facility] Utilities Answer Date Recorded In the past 12 months has e [employer], gas, oil, or water [employer] threatened to shut off services in your [...] a senior care (including now)? No 03/02/2024 [facility] Inpatient Questions Answer Date Recorded Does Anyone [...] AM EST Routine Obstetrics [place] [address] Emili Cabrera MD [facility] [place] [address] 09/26/2024 6:00 PM EST [facility]ment [facility] [place] [address] 10/16/2024 Hospital [place] [address] Dudley Aguilar MD [facility] [place] [address] 11/08/2024 10:00 AM EST Hospital Encounter [place] [address] Arrived Scheduled Referrals Name Type Priority Associated Diagnoses Order Schedule Anesthesia Pre-Operative Evaluation Referral Outpatient Referral Routine Coronary artery vasospasm ICD (implantable cardioverter-defibr illator), single, in situ Cardiac arrest Ordered: 07/22/2024 documented as of this encounter Visit Diagnoses Diagnosis Coronary artery vasospasm 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
--- OUTSIDE RECORDS SUMMARY | 2024-09-20 11:02 | XMS_ITS | Encounter Summary ---
Author Organization [facility] [place] [address] Care Team Providers Care Scientific Illustrator Name Role Phone Melinda, Kenia Marilin CAMPBELL Primary Care Provider +1- [phone] Encounter Details Date Type Department Care Team (Late st Contact Info) Description 2024 Telephone Obstetrics [place] [phone] Darron Dexter Social History Tobacco Use Types Packs/Day Years Used Date Smoking Tobacco: Every Day Cigarettes 1 15 Smokeless Tobacco: Never Comments:Smokess 0.5 - 1 pac ks of cigarettes daily x 13 - 14 years. Alcohol Use Standard Drinks/Week Comments Not Currently 0 (1 standard drink = 0.6 oz pur e alcohol) [facility] Utilities Answer Date Recorded In the past 12 months has [facility] [employer], gas, oil, or water [employer] threatened to shut off services in your [...] AM EST Routine Obstetrics [place] [address] Emili Cabrera MD [facility] [address] [place]ERNAL [place] [address] 09/26/2024 6:00 PM EST Appointment [facility] [place] [address] 10/16/2024 [place] [address] Dudley Aguilar MD [facility] DR OBSTETRICS [place] [address] 11/08/2024 10:00 AM EST Hospital Encounter Non-[place] [address] Arrived documented as of this encounter Visit Diagnoses Not on filedocumented in this encounter Care Teams Scientific Illustrator Relationship Specialty Start Date End Date Kenia Lawrence APRN [address] [place] [address] PCP - General Family Medicine 09/29/23 documented as of this encounter
--- OUTSIDE RECORDS SUMMARY | 2024-09-20 11:02 | XMS_ITS | Encounter Summary ---
Author Organization [facility] [place] [address] Care Team Providers Care Housing Installer Name Role Phone Melinda Kenia Marilin CAMPBELL Primary Care Provider +1- [phone] Encounter Details Date Type Department Care Team (Latest Contact Info) Description 04/23/2024 Travel Social History Tobacco Use Types Packs/Day Years Used Date Smoking Tobacco: Every Day Cigarettes 1 15 Smokeless Tobacco: Never Comments:Smokess 0.5 - 1 pac ks of cigarettes daily x 13 - 14 years. Alcohol Use Standard Drinks/Week Comments Not Currently 0 (1 standard drink = 0.6 oz pur e alcohol) [facility] Utilities Answer Date Recorded In the past 12 months has e [employer], gas, oil, or water [employer] threatened to shut off services in your [...] in a longterm (including now)? No 03/02/2024 Estimated Date of [...] AM EST Routine Obstetrics [place] [address] Emili Cabrera MD [facility] [place] [address] 09/26/2024 6:00 PM EST Appointment [facility] [place] [address] 10/16/2024 Hospital Encounter [place] [address] Dudley Aguilar MD [facility] DR OBSTETRICS [place] [address] 11/08/2024 10:00 AM EST Hospital Encounter [place] [address] Arrived documented as of this encounter Visit Diagnoses Not on filedocumented in this encounter Care Teams Housing Installer Relationship Specialty Start Date End Date Kenia Lawrence APRN [address] [place] [address] PCP - General Family Medicine 09/29/23 documented as of this encounter
--- OUTSIDE RECORDS SUMMARY | 2024-09-20 11:02 | XMS_ITS | Encounter Summary ---
Author Organization [facility] [place] [address] Care Team Providers Care Occupational Health And Safety Adviser Name Role Phone MelindaKenia ford Marilin CAMPBELL Primary Care Provider +1- [phone] Encounter Details Date Type Department Care Team (Latest Contact Info) Description 08/09/2024 10:30 AM EDT Clinical Support Obstetrics [place] [address] 30 weeks gestation of Social History Tobacco Use Types Packs/Day Years Used Date Smoking Tobacco: Every Day Cigarettes 1 15 Smokeless Tobacco: Never Comments:Smokess 0.5 - 1 pac ks of cigarettes daily x 13 - 14 years. Alcohol Use Standard Drinks/Week Comments Not Currently 0 (1 standard drink = 0.6 oz pur e alcohol) [facility] Utilities Answer Date Recorded In the past 12 months has [facility] [employer], gas, oil, or water [employer] threatened to shut off services in your [...] to sleep or slept in a senior living (including now)? No 03/02/2024 [facility] IPV Inpatient [...] as of this encounter Progress Notes * Linda Cross, CCMA - 08/09/2024 10:30 AM EDT Flu and Tdap vaccines given by Lindy Urias LPN documented in this encounter Plan of Treatment Upcoming Encounters Date Type Department Care Team (Late st Contact Info) Description 09/21/2024 8:15 AM EST Routine Obstetrics [place] [address] Emili Cabrera MD [facility] [place] [address] 09/26/2024 6:00 PM EST Appointment [facility] [place] [address] 10/16/2024 [place] [address] Dudley Aguilar MD [facility] [address] OBSTET[place] [address] 11/08/2024 10:00 AM EST Hospital Encounter Non-Invasive [place] [address] Arrived documented as of this encounter Visit Diagnoses Diagnosis 30 weeks gestation of state, incidental documented in this encounter Care Teams Occupational Health And Safety Adviser Relationship Specialty Start Date End Date Kenia Lawrence APRN [address] [place] [address] PCP - General Family Medicine 09/29/23 documented as of this encounter
--- OUTSIDE RECORDS SUMMARY | 2024-09-20 11:02 | XMS_ITS | Encounter Summary ---
Author Organization [facility] Address [facility] [place] [address] Care Team Providers Care Customer Logistics Manager Name Role Phone Melinda, Kenia Marilin CAMPBELL Primary Care Provider +1- [phone] Encounter Details Date Type Department Care Team (Latest Contact Info) Description 05/12/2024 10:00 AM EDT - 05/12/2024 11:59 PM EDT Hospital Encounter Non-Invasive [place]iology [place] [address] Discharge Disposition: Home Social History Tobacco Use Types Packs/Day Years Used Date Smoking Tobacco: Every Day Cigarettes 1 15 Smokeless Tobacco: Never Comments:Smokess 0.5 - 1 pac ks of cigarettes daily x 13 - 14 years. Alcohol Use Standard Drinks/Week Comments Not Currently 0 (1 standard drink = 0.6 oz pur e alcohol) [facility] Utilities Answer Date Recorded In the past 12 months has [employer], oil, or water [employer] threatened to shut off services in your [...] a senior care (including now)? No 03/02/2024 Estimated Date of [...] Sig Dispensed Refills Start Date End Date diazePAM (Valium) 2 mg tablet Take 1 [...] each 07/29/2022 fluticasone propionate (Flonase) 50 mcg/actuation [place], SuspensionIndications :allergic rhinitis 1 spray by Each Nare route [...] Take 1 tablet by mouth as needed. isosorbide dinitrate (Isordil) 5 mg tabletIndications:Cydney st discomfort Take 1 tablet by mouth 3 [...] AM EST Routine Obstetrics [place] [address] Emili Cabrera MD [facility] [place] [address] 09/26/2024 6:00 PM EST Appointment [facility] [place] [address] 10/16/2024 Hospital [place] [address] Dudley Aguilar MD [facility] DR OBST[place] [address] 11/08/2024 10:00 AM EST Hospital Encounter Non-Invasive Cardiology [place] [address] Arrived documented as of this encounter Procedures Procedure Name Priority Date/Time Associated Diagnosis Comments PRO ICD INTERROGATION REMOTE UP TO 90 DAYS Routine 03/16/2024 11:17 AM EDT documented in this encounter Results * Cardiac Device Check - Remote (03/16/2024 11:17 AM EDT) Anatomical Region Laterality Modality Other 03/16/2024 11:1 7 AM EDT Bertin Rubi MD IMPLANTABLE CARDIAC DEVICE documented in this encounter Visit Diagnoses Not on filedocumented in this encounter Care Teams Customer Logistics Manager Relationship Specialty Start Date End Date Kenia Lawrence APRN [address] [place] [address] PCP - General Family Medicine 09/29/23 documented as of this encounter
--- OUTSIDE RECORDS SUMMARY | 2024-09-20 11:02 | XMS_ITS | Encounter Summary ---
Author Organization [facility] [place] [address] Care Team Providers Care Sulfonator Operator Name Role Phone Melinda, Kenia Marilin CAMPBELL Primary Care Provider +1- [phone] Reason for Referral * Diagnostic Test (Routine) - Closed Specialty Diagnoses / Procedures Referred By Contac t Referred To Contact Cardiology Diagnoses Acute pelvic pain, female Chest discomfort Procedures Echocardiogram Transthoracic Kaila Hameed MD [facility] OBSTETRICS [place] [address] [facility] [place] [address] Referral ID Status Reason Start Date Expiration Date V isits Requested Visits Authorized [id number] Closed Specialty Service Requested 04/21/2024 04/21/2025 1 1 Reason for Visit * Diagnostic Test (Routine) - Closed Specialty Diagnoses / Procedures Referred By Contac t Referred To Contact Cardiology Diagnoses Acute pelvic pain, female Chest discomfort Procedures Echocardiogram Transthoracic Kaila Hameed MD [facility] OBSTETRICS [place] [address] [facility] [place] [address] Referral ID Status Reason Start Date Expiration Date V isits Requested Visits Authorized [id number] Closed Specialty Service Requested 04/21/2024 04/21/2025 1 1 Encounter Details Date Type Department Care Team (Latest Contact Info) Description 05/05/2024 10:19 AM EDT - 05/05/2024 11:59 PM EDT Hospital Encounter Non-Invasive Cardiology Lab [facility] [place] [address] Kaila Hameed MD [facility] OBSTETRICS [place] [address] Acute pelvic pain, female; Chest discomfort Discharge [...] Recorded In the past 12 months has [employer], oil, or water [employer] threatened to shut off services in your [...] place to sleep or slept in a half-way (including now)? No 03/02/2024 Estimated Date of [...] each 07/29/2022 fluticasone propionate (Flonase) 50 mcg/actuation [place], SuspensionIndications :allergic rhinitis 1 spray by Each [...] AM EST Routine Obstetrics [place] [address] Emili Cabrera MD [facility] [place] [address] 09/26/2024 6:00 PM EST Appointment [facility] [place] [address] 10/16/2024 Hospital Encounter [place] [address] Dudley Aguilar MD [facility] DR OBSTETRICS [place] [address] 11/08/2024 10:00 AM EST Hospital Encounter Non-[place] [address] Arrived documented as of this encounter Procedures Procedure Name Priority Date/Time Associated Diagnosis Comments ECHO COMPLETE Routine 05/05/2024 11:18 AM EDT Acute pelvic pain, female Chest discomfort documented in this encounter Results * ECHO COMPLETE (05/05/2024 11:18 AM EDT) Anatomical Region Laterality Modality Cardiac Other 05/05/2024 10:3 8 AM EDT Narrative 05/05/2024 11:34 AM EDT [address] [place] [address] ? Echocardiogram Report Name: JOSE JUAN LUQUE ? Study Date: 05/05/2024 10:38 AMBP: 136/98 mmHg ? Patient Location: 4A : 1985 ? Height: 163 cm ? Account: [id number] Age: 38 yrs ? Weight: 77 kg Gender: Female ?BSA: 1.8 m2 Ordering Physician: KAILA HAMEED Referring Physician: KAILA HAMEED Performed By: SAUNDRA Vaughn Reason For Study: Chest discomfort Exam Location: [facility]. Interpretation Summary -Left ventricular systolic function is normal. Left ventricular ejection fraction is estimated visually at 65%. There are no segmental wall motion abnormalities. -The right ventricle is of normal size. Right ventricular systolic function is normal. -Normal valves. -Compared with the previous echo performed on 03/14/22, there is no significant change. Procedure Complete-[id number]. Satisfactory quality. There is normal sinus rhythm. Left Ventricle Left ventricle is of normal size. Wall thickness is normal. There is no left ventricular outflow tract obstruction. There is no ventricular septal defect. Left ventricular systolic function is normal. Left ventricular ejection fraction is estimated visually at 65%. There are no segmental wall motion abnormalities. Right Ventricle The right ventricle is of normal size. Right ventricular systolic function is normal. Left Atrium The left atrium is normal. No abnormality of the interatrial septum is identified. Right Atrium The right atrium is normal. Aortic Valve The aortic valve is tricuspid. There is no aortic stenosis. There is no aortic regurgitation. Mitral Valve The mitral valve is structurally normal. There is trace mitral regurgitation. Tricuspid Valve The tricuspid valve is structurally and functionally normal. There is trace tricuspid regurgitation. Pulmonic Valve The pulmonic valve appears to be structurally and functionally normal. There is no pulmonic valve regurgitation. Great Arteries The aortic root is of normal size. No abnormalities are identified. Ascending aorta is normal in size. No abnormalities of the pulmonary artery are identified. Venous Inferior vena cava is normal in size. Inferior vena cava collapse greater than 50% with respiration. Pericardium/Pleural There is a trivial pericardial effusion. The pericardial effusion is anterior. Hemodynamics Pulmonary artery hypertension could not be assessed due to inadequate tricuspid regurgitation jet. The estimated right atrial pressure is 3mmHg. Left ventricular diastolic function is normal. Left ventricular filling pressure is normal. ? 2D Measurements ? Volumes ?IVSd: 0.82 cm ?LAV(MOD-bp) Indexed: ?LVIDd: 4.8 cm ?LVIDs: 3.0 cm ?22.4 ml/m2 ?LVPWd: 0.71 cm ? RA A4Cs_phl: 13.8 cm2 ? SV(LVOT): 74.8 ml ?RWT: 0.30 {ratio} ?LV mass(C)d: 119.7 grams ? SI(LVOT): 40.9 ml/m2 ?LV mass(C)dI: 65.5 grams/m2 ?Ao root diam: 3.2 cm ?Ao root diam index: 1.8 ?asc Aorta Diam: 3.1 cm ?LVOT diam: 1.9 cm Doppler LV V1 VTI: 26.1 cm MV E max juan: 71.7 cm/sec MV A max juan: 80.4 cm/sec MV E/A: 0.89 MVA(P1/2t): 3.4 cm2 Lat Peak E' Juan: 16.8 cm/sec E/e' (lat): 4.3 Med Peak E' Juan: 9.6 cm/sec E/e' (med): 7.5 E/e' Average: 5.9 I ?WMSI = 1.00 ? % Normal = 100 ?Segments ??Size X - Cannot ?? 1 - Normal ?? 2 - ? 3 - Akinetic 4 - ?1-2 ? small Interpret ? Hypokinetic ?Dyskinetic ?? 3-5 ? moderate 5 - ? 6-14 ?large Aneurysmal ?15-16 ?? diffuse Procedure Note Graham Moreira MD - 05/05/2024 1 [place] [address] Echocardiogram Report Name: JOSE JUAN LUQUE Study Date: 410:38 AMBP: 136/98 mmHg Patient Location: 4A : 1985 Height: 163 cm Account: [id number] Age: 38 yrs Weight: 77 kg Gender: Female BSA: 1.8 m2 Ordering Physician: KAILA HAMEED Referring Physician: KAILA HAMEED Performed By: SAUNDRA Vaughn Reason For Study: Chest discomfort Exam Location: [facility]. Interpretation Summary -Left ventricular systolic function is normal. Left ventricular ejectionfraction is estimated visually at 65%. There are no segmental wall motionabnormalities. -The right ventricle is of normal size. Right ventricular systolicfunction is normal. -Normal valves. -Compared with the previous echo performed on 03/14/22, there is nosignificant change. Procedure Complete-[id number]. Satisfactory quality. There is normal sinus rhythm. Left Ventricle Left ventricle is of normal size. Wall thickness is normal. There is noleft ventricular outflow tract obstruction. There is no ventricular septaldefect. Left ventricular systolic function is normal. Left ventricular ejectionfraction is estimated visually at 65%. There are no segmental wall motionabnormalities. Right Ventricle The right ventricle is of normal size. Right ventricular systolic functionis normal. Left Atrium The left atrium is normal. No abnormality of the interatrial septum isidentified. Right Atrium The right atrium is normal. Aortic Valve The aortic valve is tricuspid. There is no aortic stenosis. There is noaortic regurgitation. Mitral Valve The mitral valve is structurally normal. There is trace mitralregurgitation. Tricuspid Valve The tricuspid valve is structurally and functionally normal. There istrace tricuspid regurgitation. Pulmonic Valve The pulmonic valve appears to be structurally and functionally normal.There is no pulmonic valve regurgitation. Great Arteries The aortic root is of normal size. No abnormalities are identified.Ascending aorta is normal in size. No abnormalities of the pulmonary artery areidentified. Venous Inferior vena cava is normal in size. Inferior vena cava collapse greaterthan 50% with respiration. Pericardium/Pleural There is a trivial pericardial effusion. The pericardial effusion isanterior. Hemodynamics Pulmonary artery hypertension could not be assessed due to inadequatetricuspid regurgitation jet. The estimated right atrial pressure is 3mmHg. Leftventricular diastolic function is normal. Left ventricular filling pressure isnormal. 2D Measurements Volumes IVSd: 0.82 cm LAV(MOD-bp)Indexed: LVIDd: 4.8 cm LVIDs: 3.0 cm 22.4 ml/m2 LVPWd: 0.71 cm RA A4Cs_phl: 13.8cm2 SV(LVOT): 74.8ml RWT: 0.30 {ratio} LV mass(C)d: 119.7 grams SI(LVOT): 40.9ml/m2 LV mass(C)dI: 65.5 grams/m2 Ao root diam: 3.2 cm Ao root diam index: 1.8 asc Aorta Diam: 3.1 cm LVOT diam: 1.9 cm Doppler LV V1 VTI: 26.1 cm MV E max juan: 71.7 cm/sec MV A max juan: 80.4 cm/sec MV E/A: 0.89 MVA(P1/2t): 3.4 cm2 Lat Peak E' Juan: 16.8 cm/sec E/e' (lat): 4.3 Med Peak E' Juan: 9.6 cm/sec E/e' (med): 7.5 E/e' Average: 5.9 I WMSI = 1.00 % Normal = 100 SegmentsSize X - Cannot 1 - Normal 2 - 3 - Akinetic 4 - 1-2small Interpret Hypokinetic Dyskinetic 3-5moderate 5 - 6-14large Aneurysmal 15-16diffuse Kaila Hameed MD ECHO ORDERABLES documented in this encounter Visit Diagnoses Diagnosis Acute pelvic pain, female Unspecified symptom associated with female genital organs Chest discomfort Other chest pain documented in this encounter Care Teams Sulfonator Operator Relationship Specialty Start Date End Date Kenia Lawrence APRN [address] [place] [id number] PCP - General Family Medicine 09/29/23 documented as of this encounter
--- OUTSIDE RECORDS SUMMARY | 2024-09-20 11:02 | XMS_ITS | Encounter Summary ---
Author Organization [facility] Address [facility] [place] [address] Care Team Providers Care Molder Punch Name Role Phone MelindaKenia ford ADRIAN Primary Care Provider +1- [phone] Encounter Details Date Type Department Care Team (Latest Contact Info) Description 08/09/2024 8:54 AM EDT - 08/09/2024 11:59 PM EDT Hospital [place] [address] Kaila Hameed MD [facility] [address] [place] [address] Chronic hypertension in Discharge Disposition: Home Social History Tobacco Use Types Packs/Day Years Used Date Smoking Tobacco: Every Day Cigarettes 1 15 Smokeless Tobacco: Never Comments:Smokess 0.5 - 1 pac ks of cigarettes daily x 13 - 14 years. Alcohol Use Standard Drinks/Week Comments Not Currently 0 (1 standard drink = 0.6 oz pur e alcohol) [facility] Utilities Answer Date Recorded In the past 12 months has [employer], gas, oil, or water [employer] threatened to shut off services in your [...] place to sleep or slept in a care home (including now)? No 03/02/2024 DH IPV [...] each 07/29/2022 fluticasone propionate (Flonase) 50 mcg/actuation Naylor, SuspensionIndications: allergic rhinitis 1 spray by Each [...] AM EST Routine Obstetric[place] [address] Emili Cabrera MD [facility] [place] [address] 09/26/2024 6:00 PM EST Appointment [facility] [place] [phone] 10/16/2024 [place] [address] Dudley Aguilar MD [facility] [place] [address] 11/08/2024 10:00 AM EST Hospital Encounter Non-Invasive Cardiology Lab [facility] [place] [address] Arrived documented as of this encounter Procedures Procedure Name Priority Date/Time Associated Diagnosis Comments US OB FOLLOW UP Routine 08/09/2024 9:26 AM EDT Chronic hypertension in documented in this encounter Results * US OB Follow Up (08/09/2024 9:26 AM EDT) [employer] WORKSTATION ID [id number] RAD Anatomical Region Laterality Modality Pelvis, Abdomen [...] who have questions, please contact the health senior caregiver that requested your imaging first. ?Lexie Ibrahim, Physician Electronically Signed Final Report ?? 08/09/2024 09:52 am Narrative 08/09/2024 9:53 AM EDT OBSTETRICS REPORT ? (Signed Final 08/09/2024 09:52 am) PATIENT INFO: ID #: ? [id number] ?: ??[birth year] (39 yrs)(F) Name: ? JOSE JUAN LUQUE ? Visit Date: 08/09/2024 09:16 am PERFORMED BY: Performed By: ? Magdalena Walsh RDMS Attending: ?Lexie Ibrahim MD Referred By: ?KAILA HAMEED Location: ? [place] SERVICE(S) PROVIDED: UOBFOL - Efw - Growth ??- [place] - [id number] INDICATIONS: 30 weeks gestation of ? Z3A.30 [...] - 87 FL/AC: ? 22.1 ??% ? - Est. FW: ?1687 ?? gm ?3 lb [...] 08/09/2024 09:52 am) PATIENT INFO: ID #: [id number] : [birth year] (39 yrs)(F) Name: JOSE JUAN LUQUE Visit Date: 08/09/2024 09:16 am PERFORMED BY: Performed By: Magdalena Walsh RDMS Attending: Lexie Ibrahim MD Referred By: KAILA HAMEED Location: [place] SERVICE(S) PROVIDED: UOBFOL - Efw - Growth - Robertson - [id number] INDICATIONS: 30 weeks gestation of Z3A.30 growth [...] who have questions, please contact the health senior caregiver that requested your imaging first. Lexie Ibrahim, Physician Electronically Signed Final Report 08/09/2024 09:52 am Kaila Hameed MD [facility] OB ORDERABL ES documented in this encounter Visit Diagnoses Diagnosis Chronic hypertension in Benign essential hypertension complicating , childbirth, and the puerperium, unspecified as to episode of care documented in this encounter Care Teams Molder Punch Relationship Specialty Start Date End Date Kenia Lawernce APRN [address] [place] [address] PCP - General Family Medicine 09/29/23 documented as of this encounter
--- OUTSIDE RECORDS SUMMARY | 2024-09-20 11:02 | XMS_ITS | Encounter Summary ---
Author Organization [facility] [address] Care Team Providers Care Deputy Manager Name Role Phone MelindaKenia ford ADRIAN Primary Care Provider +1- [phone] Encounter Details Date Type Department Care Team (Latest Contact Info) Description 08/09/2024 8:35 AM EDT Laboratory Appointment Lab [address] [place] [phone] Chronic hypertension in Social History Tobacco Use Types Packs/Day Years Used Date Smoking Tobacco: Every Day Cigarettes 1 15 Smokeless Tobacco: Never Comments:Smokess 0.5 - 1 pac ks of cigarettes daily x 13 - 14 years. Alcohol Use Standard Drinks/Week Comments Not Currently 0 (1 standard drink = 0.6 oz pur e alcohol) [facility] Utilities Answer Date Recorded In the past 12 months has [facility] [employer], gas, oil, or water [employer] threatened to shut off services in your [...] AM EST Routine Obstetrics [place] [address] Emili Cabrera MD [facility] [place] [address] 09/26/2024 6:00 PM EST Appointment [facility] [place] [phone] 10/16/2024 [place] [phone] Dudley Aguilar MD [facility] DR OBSTET[place] [address] 11/08/2024 10:00 AM EST Hospital Encounter Non-[place] [phone] Arrived documented as of this encounter Procedures Procedure Name Priority Date/Time Associated Diagnosis Comments GESTATIONAL DIABETES SCREEN Routine 08/09/2024 8:30 AM EDT Chronic hypertension in CBC (WITH DIFF) Routine 08/09/2024 8:30 AM EDT Chronic hypertension in documented in this encounter Results * Gestational Diabetes Screen (08/09/2024 8:30 AM EDT) Glucose Gestational Screen, 1 Hour 101 65 - 134 mg/dL 08/09/2024 9:56 AM EDT [facility] Oral Glucose Dose 50 gm 08/09/2024 9:56 AM EDT [facility] Blood VENOUS BLOOD SPECIMEN / Unknown Venipuncture / Unknown 08/09/2024 8:30 AM EDT 08/09/2024 8:31 AM EDT Kaila Castellanos MD CHEMISTRY ORDERABL ES [facility] [place] [address] * (ABNORMAL) CBC (with Diff) (08/09/2024 8:30 AM EDT) White Blood Cell 11.33(H) 4.00 - 9.50 x10(3)/mc L 08/09/2024 9:58 AM EDT [facility] Red Blood Cell 3.35(L) 4.00 - 5.21 x10(6)/mc L 08/09/2024 9:58 AM EDT [facility] Hemoglobin 9.5(L) 11.7 - 15.5 g/dL 08/09/2024 9:58 AM EDT [facility] Hematocrit 29.3(L) 35.7 - 45.8 % 08/09/2024 9:58 AM EDT [facility] Mean Cell Volume 87.5 82.6 - 94.4 fL 08/09/2024 9:58 AM EDT [facility] Mean Cell Hemoglobin 28.4 27.1 - 32.0 pg 08/09/2024 9:58 AM EDT [facility] Mean Cell Hemoglobin Concentration 32.4 31.7 - 35.0 g/dL 08/09/2024 9:58 AM EDT [facility] Platelet 324 145 - 357 x10(3)/mc L 08/09/2024 9:58 AM EDT [facility] Mean Platelet Volume 10.7 7.6 - 12.9 fL 08/09/2024 9:58 AM EDT [facility] RDW Standard Deviation 51.0(H) 37.0 - 46.0 fL 08/09/2024 9:58 AM EDT [facility] RDW coefficient of variation 16.1(H) 11.5 - 14.1 % 08/09/2024 9:58 AM EDT [facility] NRBC% auto 0.0 % 08/09/2024 9:58 AM EDT [facility] NRBC Absolute <0.01 <0.01 x10(3)/mc L 08/09/2024 9:58 [facility] Neutrophil % 69.1 % 08/09/2024 9:58 AM [facility] Neutrophil Absolute (ANC) - Automated 7.82(H) 1.70 - 6.10 x10(3)/mc L 08/09/2024 9:58 [facility] Lymph % 21.7 % 08/09/2024 9:58 AM [facility] Lymph Absolute 2.46 0.90 - 3.20 x10(3)/mc L 08/09/2024 9:58 AM [facility] Monocyte % 4.9 % 08/09/2024 9:58 AM [facility] Monocyte Absolute 0.56 0.30 - 0.90 x10(3)/mc L 08/09/2024 9:58 AM [facility] Eos % 2.6 % 08/09/2024 9:58 AM [facility] Eos Absolute 0.30 0.00 - 0.40 x10(3)/mc L 08/09/2024 9:58 AM [facility] Basophil % 0.3 % 08/09/2024 9:58 AM [facility] Baso Absolute <0.04 0.00 - 0.10 x10(3)/mc L 08/09/2024 9:58 [facility] Immature Gran % 1.4 % 9:58 AM [facility] Immature Gran Absolute 0.16(H) 0.00 - 0.04 x10(3)/mc L 08/09/2024 9:58 AM [facility] Blood VENOUS BLOOD SPECIMEN / Unknown Venipuncture / Unknown 08/09/2024 8:30 AM EDT 08/09/2024 8:31 AM EDT Kaila Castellanos MD HEMATOLOGY ORDERAB LES [facility] [place] [address] documented in this encounter Visit Diagnoses Diagnosis Chronic hypertension in Benign essential hypertension complicating , childbirth, and the puerperium, unspecified as to episode of care documented in this encounter Care Teams Deputy Manager Relationship Specialty Start Date End Date Kenia Lawrence, TRADE PROMOTION ANALYST [address] [place] [address] PCP - General Family Medicine 09/29/23 documented as of this encounter
--- OUTSIDE RECORDS SUMMARY | 2024-09-20 11:02 | XMS_ITS | Encounter Summary ---
Author Organization [facility] Address [facility] [place] [address] Care Team Providers Care Ux Interaction Designer Name Role Phone MelindaKenia ford ADRIAN Primary Care Provider +1- [phone] Reason for Visit * Reason Comments Routine Visit Encounter Details Date Type Department Care Team (Late st Contact Info) Description 08/09/2024 10:00 AM EDT Office Visit Obstetrics [place] [address] Lexie Lizarraga MD [facility] MATERNAL & [place] [address] Chronic hypertension in ; Chest discomfort Social History Tobacco Use Types Packs/Day Years Used Date Smoking Tobacco: Every Day Cigarettes 1 15 Smokeless Tobacco: Never Comments:Smokess 0.5 - 1 pac ks of cigarettes daily x 13 - 14 years. Alcohol Use Standard Drinks/Week Comments Not Currently 0 (1 standard drink = 0.6 oz pur e alcohol) [facility] Utilities Answer Date Recorded In the past 12 months has [employer], gas, oil, or water [employer] threatened to shut off services in your [...] Sign Reading Time Taken Comments Blood Pressure 134/85 08/09/2024 9:48 AM EDT Pulse 92 08/09/2024 9:48 AM EDT Temperature - - Respiratory Rate - - Oxygen Saturation - - Inhaled Oxygen Concentration - - Weight 79.1 kg (174 lb 6.4 oz) 08/09/2024 9:48 A M EDT Height - - Body Mass Index 29.94 07/15/2024 1:30 PM EDT documented in this encounter Progress Notes * Lexie Lizarraga MD - 08/09/2024 10:00 AM EDT VISIT Subjective +FM, no VB, LOF, cxts. Concerns: Was unable to pic up Isordil rx from Dr Zurita. Only has 2 nitro tabs left at home. 1 week ago felt face numbness, left arm pain, took 1 nitro w only some relief and called EMS- taken to [facility] ER. Reports was given ASA and more nitro and ultimately cleared and discharged home. No further episodes since, has not taken any more nitro. Other than this episode feels overall stable from cardiac standpoint, no increase in chest pain, palpitations, SOB, or other cardiac sx, though does feel like she's continued to have intermittent heart burn/chest pain throughout the , consistent with pain previously discussed w/ Dr Zurita and thought to be non-anginal. Also w/ increasing anxiety- has psychiatrist and takes valium daily. Reports sees psychiatrist q2 weeks. Objective: Vitals: 08/09/24 0948 BP: 134/85 Pulse: 92 Weight: 79.1 kg (174 lb 6.4 oz) US today: Estimated weight 1687g corresponds to the 64th percentile for 30w 2d. Current growth parameters are consistent with prior dating indicating normal growth. Amniotic fluid volume is Normal Assessment/Plan: 39 y.o. at 30w2d with - Flu and tDAP today; CBC and GTT pending from this AM. 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 Return visit in 2 weeks Lexie Lizarraga MD 08/09/24 12:57 PM documented in this encounter Plan of Treatment Upcoming Encounters Date Type Department Care Team (Late st Contact Info) Description 09/21/2024 8:15 AM EST Routine Obstetrics [place] [phone] Emili Cabrera MD [facility] [place] [address] 09/26/2024 6:00 PM EST Appointment [facility] [place] [phone] 10/16/2024 [place] [phone] Dudley Aguilar MD [facility] DR [place] [address] 11/08/2024 10:00 AM EST Hospital Encounter Non-[place]vasive [place] [phone] Arrived Scheduled Orders Name Type Priority Associated Diagnoses Orde r Schedule nonstress test OB Routine Chronic hypertension in Expected: 08/23/2024, Expires: 12/10/2024 documented as of this encounter Results * US OB Follow Up (08/31/2024 10:01 AM EST) [employer] WORKSTATION ID [id number] RAD Anatomical Region Laterality Modality Pelvis, Abdomen [...] who have questions, please contact the health healthcare applications analyst that requested your imaging first. ? Marek Oliveira, Staff Physician Electronically Signed Final Report ?? 08/31/2024 10:03 am Narrative 08/31/2024 10:04 AM EST OBSTETRICS REPORT ?(Signed Final 08/31/2024 10:03 am) PATIENT INFO: ID #: ? [id number] ?: ??[birth year] (39 yrs)(F) Name: ? JOSE JUAN LUQUE ? Visit Date: 08/31/2024 09:59 am PERFORMED BY: Performed By: ? Elva Duffy RDMS Attending: ?Marek Oliveira MD Referred By: ?LEXIE LIZARRAGA Location: ? [place] SERVICE(S) PROVIDED: UOBFOL - Efw - Growth ??- [place] - [id number] INDICATIONS: 33 weeks gestation of ?Z3A.33 CHTN [...] 08/31/2024 10:03 am) PATIENT INFO: ID #: [id number] : [birth year] (39 yrs)(F) Name: JOSE JUAN LUQUE Visit Date: 08/31/2024 09:59 am PERFORMED BY: Performed By: Elva Duffy RDMS Attending: Marek Oliveira MD Referred By: LEXIE LIZARRAGA Location: [place] SERVICE(S) PROVIDED: UOBFOL - Efw - Growth - [place] - [id number] INDICATIONS: 33 weeks gestation of Z3A.33 CHTN [...] who have questions, please contact the health healthcare applications analyst that requested your imaging first. Marek Oliveira, Staff Physician Electronically Signed Final Report 08/31/2024 10:03 am Lexie Lizarraga MD IMG OB ORDERABLES documented in this encounter Visit Diagnoses Diagnosis Chronic hypertension in Benign essential hypertension complicating , childbirth, and the puerperium, unspecified as to episode of care Chest discomfort Other chest pain Chronic hypertension in Benign essential hypertension complicating , childbirth, and the puerperium, unspecified as to episode of care documented in this encounter Care Teams Ux Interaction Designer Relationship Specialty Start Date End Date Kenia Lawrence APRN [address] [place], [place] [id number] PCP - General Family Medicine 09/29/23 documented as of this encounter
--- OUTSIDE RECORDS SUMMARY | 2024-09-20 11:02 | XMS_ITS | Encounter Summary ---
Author Organization [facility] Address [facility] [place] [address] Care Team Providers Care Last Repairer Helper Name Role Phone MelindaKenia ford ADRIAN Primary Care Provider [phone] Encounter Details Date Type Department Care Team (Latest Contact Info) Description 05/27/2024 3:38 PM EDT - 05/27/2024 7:32 PM EDT [place] [phone] Lily Barros MD [facility] [address] OBSTETR[place] [address] Discharge Disposition: Home Social History Tobacco Use Types Packs/Day Years Used Date Smoking Tobacco: Every Day Cigarettes 1 15 Smokeless Tobacco: Never Comments:Smokess 0.5 - 1 pac ks of cigarettes daily x 13 - 14 years. Alcohol Use Standard Drinks/Week Comments Not Currently 0 (1 standard drink = 0.6 oz pur e alcohol) [facility] Utilities Answer Date Recorded In the past 12 months has [employer], gas, oil, or water [employer] threatened to shut off services in your [...] Sign Reading Time Taken Comments Blood Pressure 130/78 05/27/2024 4:00 PM EDT Pulse 70 05/27/2024 4:00 PM EDT Temperature 36.7 ??C (98.1 ??F) 05/27/2024 4:00 PM ED T Respiratory Rate 20 05/27/2024 4:00 PM EDT Oxygen Saturation 99% 05/27/2024 3:59 PM EDT Inhaled Oxygen Concentration - - Weight 76.7 kg (169 lb) 05/27/2024 4:02 PM EDT Height 162.6 cm (5' 4) 05/27/2024 4:02 PM EDT Body Mass Index 29.01 05/27/2024 4:02 PM EDT documented in this encounter Discharge Instructions * Discharge Instructions* Ania Lindsay RN - 05/27/2024 6:57 PM EDT [address] Aniya Luque 05/27/24 6:56 PM Following your visit to [facility] Triage Call your doctor or local company flatbed truck driver for: Seizure (call 911) Chest pain Shortness of breath Headache which isn't relieved with Tylenol Headache with visual changes Abdominal pain Swelling to hands and face A temperature at or above 100.4F Nausea or vomiting Gestation - under 37 weeks Call your doctor or local company flatbed truck driver if: You experience any menstrual like cramping more than 6 an hour that does not go away with rest and fluids. You are leaking fluid may be a small leak may be a large gush note the time fluid started leaking, amount, and color (clear, yellow, green, pink, red) You notice vaginal bleeding spotting is normal following a vaginal exam in your doctor's or local company flatbed truck driver's office you should not bleed as much as a period You have noticed a marked decrease in your baby's movement refer to your kick count instructions in the Your and Childbirth Month to Month (6th edition) Your baby should move at least 10 times in 2 hours You have had any direct trauma to your abdomen such as a car accident, fall, or impact General Instructions Drink plenty of non-caffeinated fluids throughout the day to prevent dehydration. Keep your regularly scheduled doctor or local company flatbed truck driver appointment. Vaccination If you received the Measles, Mumps, and Rubella (MMR) vaccine, varicella vaccine, or Hepatitis A vaccine during your hospitalization make sure to discuss this with your OB provider or your PCP at your next visit. You may need a second dose of the vaccine to receive effective vaccine protection. Your [facility] Provider can be reached during office hours at [facility] AFTER OFFICE HOURS: Call and ask for the enterprise sales executive or local company flatbed truck driver campus receptionist documented in this encounter Medications at Time [...] each 07/29/2022 fluticasone propionate (Flonase) 50 mcg/actuation Kiel, SuspensionIndications: allergic rhinitis 1 spray by Each [...] 10/31/2022 08/13/2024 documented as of this encounter Progress Notes * Ania Lindsay RN - 05/27/2024 7:08 PM EDT Pt seen in triage for c/o cramping pain in her low back and abdomen. Reports pain began yesterday evening and has become worse since that time. Endorses diarrhea today x5 episodes. Denies VB or LOF. Reports abnormal vaginal discharge and irritation, just finished treatment for yeast infection. Reports some urinary hesitancy, urine dip normal, UA and reflex sent to lab. IV present on admission, LRbolus administered and zofran for nausea. Pt tolerating PO intake but poor appetite. Tylenol and heating pad provided for pain with some relief. Sterile spec exam performed and swab collected, cervixclosed on SVE. Respiratory PCR collected and sent to r/o atypical presentation of COVID19, etc. Reviewed discharge info with patient, questions answered. Advised patient to call with any concernsand she verbalizes understanding. Reviewed emergency situations and when to call 911. Patient stable and ready for discharge. * Laith Decker MD - 05/27/2024 6:15 PM EDT OB Triage Note Patient name: Aniya Luque Date of : 1985 Date of visit: 05/27/2024 7:03 PM Aniya Luque is a 38 y.o. female with an NAZIA of 10/16/2024, by by LMP confirmed by US who is at 19w5d weeks gestation presenting for evaluation of potential labor and diarrhea. Chief Complaint: The patient presents for evaluation of potential labor in the setting of abdominal cramping, back pressure/pain, vaginal pressure and diarrhea. Patient reports that she started feeling cramping yesterday at which time she started having some back pain/pressure (now relieved with heat pads) and vaginal pressure. Cramping and pressure are intermittent and irregular. Today she had 5 episodes of loss stools and intermittent nausea. The last time she had a BM prior to this was over 1 week ago. It is normal for her to go a few days to 2 weeks without BM. No fecal incontinence. She has been able to drink and eat at home. She denies sick contacts. She does not report eating any concerning foods. She denies fever, chills, vomiting, chest pain, SOB, LE swelling, headache. She also feels like her mood has been worse, and she has had less of an appetite. She reports adequate access to food. This was an unplanned and she is having intrusive thoughts about complications and . She is not a harm to herself or others. She also reports recurrent BV infections in the past. She was last tested on 04/21/2024 and was negative at that time, but she reports she recently finished treatment for a yeast infection last week and still feels irritated. No abnormal discharge. She reports symptoms of stress urinary incontinence at baseline. Has some urgency as well, no dysuria. 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 ICD - cHTN (on amlodipine 10 mg daily) - GERD (on pepcid) - Anxiety, depression, PTSD, borderline personality disorder (on valium) - asthma, PRN albuterol Movement: not yet felt Contractions: feels cramps; no regular contractions Leaking: None Bleeding: none Preeclampsia signs and symptoms: None Physical Exam: Temp: [36.7 ??C (98.1 ??F)] Heart Rate: [70] Resp: [20] BP: (130)/(78) SpO2: [99 %] Heart Rate from SpO2: [66 bpm] General: well-appearing, sitting comfortably in bed HEENT: moist mucus membranes Abdominal: soft, gravid, S+D, minimally tender in lower quadrants Cervical Exam: Dilation: 0 (05/27/24 1854) Long Firm OB Examiner: Janeth Price No cervical motion tenderness FHR Evaluation by Dopplers: 140bpm Sterile Speculum: tenderness on exam at introitis, no bulging membranes Recent Results (from the past 12 hour(s)) POCT urine dipstick Result Value POC Sp Marks 1.005 () POC pH, UA 7 POC Leuk, UA neg POC Nitrite, UA neg POC Protein, UA neg POC Glucose, UA normal POC Ketone, UA neg POC Urobil, UA 0.2 POC Bili, UA neg POC Blood, UA neg Assessment/Plan 38 y.o. female with an NAZIA 10/16/2024, by LMP confirmed by US who is at 19w5d gestation being evaluated for labor and diarrhea. Vital signs stable, afebrile, able to hydrate adequately by PO. #Rule out pre-term labor No evidence of bulging membranes and closed, so speculum exam not suggestive of cervical insufficiency. Closed, long and high on cervical exam, not suggestive of labor. Due to patient's concern for BV, vaginitis/osis swab performed. No dysuria, but urinary urgency, so UA with reflex collected. - Follow up vaginitis/osis results - Follow up UA w/ reflex culture #Diarrhea Patient's symptoms most likely due to viral gastroenteritis, however due to high risk cardiac hx and cannot rule out COVID/URI causing gastrointestinal symptoms, will plan for COVID/respiratory panel. Afebrile, stable vital signs so unlikely bacterial gastroenteritis and fecal culture not indicatedat this time. - Recommend hydration - Follow up respiratory panel #Depressed mood, intrusive thoughts Has hx of anxiety, depression, PTSD, borderline personality disorder. Discussed if she would be interested in follow up with OB counseling regarding worsening depressed mood and intrusive thoughts and patient agreed, so request sent to Juany Benoit for follow up. Patient has next OB appointment on 05/31/2024. Return precautions given. Patient seen and discussed with ZAINAB Guzman attending. Laith Decker MD OBGYN PGY1 Associated attestation - Janeth Quintana MD - 05/27/2024 8:21 PM EDT I have seen the patient, discussed the plan of care with the resident as well as the patient, and agree with documentation as above. 38 yo , h/o term x 4, p/w abdominal pain, irregular cramping, diarrhea without fevers or other assoc sx. No VB. Normal FHR 140, cervix long/closed, pt ableto orally hydrate. Likey viral gastroenteritis. Covid swab pending; pt would like a call with results. High risk cardiac hx. No cardiac sx today. Precautions reviewed. F/u with mental health counselor and MFM for scheduled visit Friday. Janeth Quintana MD * Sophy White CNM - 05/27/2024 4:36 PM EDT Triage Visit CC: Abdominal pain and pelvic pressure Subjective: Aniya Luque presents to the [facility] at 19w5d for abdominal pain, cramping, back pain, loose stool. She started to feel bad yesterday. Reports pain comes and goes. The pressure is what worries her most. Just not feeling well. She came via ambulance. She denies any vaginal bleeding or leaking of fluid. She does report that she finished a treatment for yeast last week and is still irritated. Has some urinary urgency, no pain with urination. Not feeling baby move yet this Objective: BP 130/78 (BP Location (NBP): Right arm, Patient Position: Sitting) Pulse 70 Temp 36.7 ??C (98.1 ??F) (Oral) Resp 20 Ht 162.6 cm (5' 4) Wt 76.7 kg (169 lb) LMP (LMP Unknown) SpO2 99% BMI 29.01 kg/m?? Abdomen- Gravid, slightly tender, no acute pain No CVA tenderness FHR- 140 with doppler Assessment/Plan: 38 y.o. at 19w5d gestation who presents with abdominal pain, cramping, back pain, loose stool. Her is complicated by: Chronic hypertension in Encounter for induction of labor [facility] SQ ICD, single, in situ Pulse generator: [employer] S-ICD Pulse Generator Model A219 Serial Number [id number] Implanted 11/12/21 Ventricular electrode: SQ electrode Model 3501 Bipolar Serial Number [id number] Implanted 11/12/21 Cigarette smoker Coronary artery vasospasm History of COVID-19 Hx of Cardiac arrest Per 05/14/2022 Cardiology note: Summary: Cardiac arrest secondary to vasospasm on CCB/nitrates PRN. There did not appear to have been myocardial damage nor cardiomyopathy after her arrest. LVEF 68% without RWMA. She has a sub-Q ICD which has not fired. And was counseled extensively to quit smoking. Gastroesophageal reflux disease Added automatically from request for surgery [id number] Borderline personality disorder Post-traumatic stress disorder, chronic Anxiety disorder, unspecified The patient is a 34-year-old woman who presented with worsening anxiety surrounding nonspecific somatic complaints such as full body tingling. She has a number of existing medical issues such as HTN,asthma, and GERD, the symptoms of which (e.g. heartburn, cough) tend to provoke her anxiety. Chest pain ETT 2014- negative ST III Echo 2013 Normal LV size and function, trivial TR, mild PI Skin disease Depression Asthma Rx PRN albuterol Pulmonary workup negative 2007 (in [facility]) Hypertension Onset 2013, variable BP highs of 160-170 systolic, then normal Tachycardia Recurrent major depressive episodes, moderate Plan to start IV fluid bolus, IV zofran, tylenol PO. Plan cervical check and spec exam. Dr. Carterware of the plan Sophy White CNM 05/27/2024 documented in this encounter Plan of Treatment Upcoming Encounters Date Type Department Care Team (Late st Contact Info) Description 09/21/2024 8:15 AM EST Routine Obstetrics [place] [phone] Emili Cabrera MD [facility] [place] [address] 09/26/2024 6:00 PM EST Appointment [facility] [place] [phone] 10/16/2024 [place] [phone] Dudley Aguilar MD [facility] DR OBSTETRICS [place] [address] 11/08/2024 10:00 AM EST Hospital Encounter Non-Invasive [place] [phone] Arrived documented as of this encounter Procedures Procedure Name Priority Date/Time Associated Diagnosis Comments RESPIRATORY PANEL PCR Routine 05/27/2024 6:38 PM EDT POCT URINE DIPSTICK Routine 05/27/2024 5 :01 PM EDT URINALYSIS MICROSCOPIC WITH REFLEX TO CULTURE Routine 05/27/2024 4:57 PM EDT URINALYSIS WITH REFLEX CULTURE Routine 05/27/2024 4:57 PM EDT documented in this encounter Results * Respiratory Panel PCR (05/27/2024 6:38 PM EDT) Respiratory Panel PCR Negative Negative 05/27/2024 10:24 PM EDT [facility] Adenovirus Not Detected Not Detected 05/27/2024 10:24 PM EDT [facility] Coronavirus HKU1 Not Detected Not Detected 05/27/2024 10:24 PM EDT [facility] Coronavirus NL63 Not Detected Not Detected 05/27/2024 10:24 PM EDT [facility] Coronavirus 229E Not Detected Not Detected 05/27/2024 10:24 PM EDT [facility] Coronavirus OC43 Not Detected Not Detected 05/27/2024 10:24 PM EDT [facility] SARS-CoV-2 Not Detected Not Detected 05/27/2024 10:24 PM EDT [facility] Human Metapneumovirus Not Detected Not Detected 05/27/2024 10:24 PM EDT [facility] Human Rhinovirus/Enterov irus Not Detected Not Detected 05/27/2024 10:24 PM EDT [facility] Influenza A Not Detected Not Detected 05/27/2024 10:24 PM EDT [facility] Influenza B Not Detected Not Detected 05/27/2024 10:24 PM EDT [facility] Parainfluenza 1 Not Detected Not Detected 05/27/2024 10:24 PM EDT [facility] Parainfluenza 2 Not Detected Not Detected 05/27/2024 10:24 PM EDT [facility] Parainfluenza 3 Not Detected Not Detected 05/27/2024 10:24 PM EDT [facility] Parainfluenza 4 Not Detected Not Detected 05/27/2024 10:24 PM EDT [facility] Respiratory Syncytial Virus Not Detected Not Detected 05/27/2024 10:24 PM EDT [facility] Chlamydophila pneumoniae Not Detected Not Detected 05/27/2024 10:24 PM EDT [facility] Mycoplasma pneumoniae Not Detected Not Detected 05/27/2024 10:24 PM EDT [facility] Swab SPECIMEN FROM NASOPHARYNGEAL STRUCTURE / Unknown Non Blood Collection / Unknown 05/27/2024 6:38 PM EDT 05/27/2024 6:45 PM EDT Narrative [facility] - 05/27/2024 10:24 PM EDT Respiratory Panels are performed on the Film[employer] using multiplexed PCR nucleic acid detection. Negative results do not preclude respiratory infection and should not be used as the sole basis for diagnosis, treatment, or other management decisions. Respiratory Panels are performed on the Film[employer] using multiplexed PCR nucleic acid detection. Negative results do not preclude respiratory infection and should not be used as the sole basis for diagnosis, treatment, or other management decisions. Lily Barros MD MICROBIOLOGY - [facility] AL ORDERABLES [facility] [place] [address] * (ABNORMAL) POCT urine dipstick (05/27/2024 5:01 PM EDT) POC Sp Marks 1.005(HH) 1.002 - 1.030 POC pH, UA 7 5.0 - 8.5 POC Leuk, UA neg Negative - Negative POC Nitrite, UA neg Negative - Negative POC Protein, UA neg Negative - Negative mg/dL POC Glucose, UA normal Normal - Normal mg/dL POC Ketone, UA neg Negative - Negative POC Urobil, UA 0.2 0.2 - 1.0 mg/dL POC Bili, UA neg Negative - Negative POC Blood, UA neg Negative - Negative rajeev/uL 05/27/2024 5:01 PM EDT Lily Barros MD POINT OF CARE TEST O RDERABLES * Urinalysis Microscopic with Reflex to Culture (05/27/2024 4:57 PM EDT) Bacteria, Urine None None /HPF 8:03 PM EDT [facility] RBC, Urine 2 0 - 4 /HPF 05/27/2024 8:03 PM EDT [facility] WBC, Urine 2 0 - 5 /HPF 05/27/2024 8:03 PM EDT [facility] Squamous Epithelial Cells, Urine 3 0 - 5 /HPF 05/27/2024 8:03 PM EDT [facility] Hyaline Casts, Urine 1 0 - 2 /LPF 05/27/2024 8:03 PM EDT [facility] Urine URINE SPECIMEN OBTAINED BY CLEAN CATCH PROCEDURE / Unknown Non Blood Collection / Unknown 05/27/2024 4:57 PM EDT 05/27/2024 6:56 PM EDT Sophy White [facility] URINE ORDERABLES [facility] [address] * (ABNORMAL) Urinalysis with reflex Culture (05/27/2024 4:57 PM EDT) Glucose, Urine Dipstick Negative Negative 05/27/2024 8:03 PM EDT [facility] Protein, Urine Dipstick Trace(A) Negative 05/27/2024 8:03 PM EDT [facility] Bilirubin, Urine Dipstick Negative Negative 05/27/2024 8:03 PM EDT [facility] Comment:Clinical correlation required for positive Urine Bilirubin results as false positive may occur with some drugs and drug related products. If a false positive is suspected a serum total bilirubin should be considered if clinically indicated. Urobilinogen, Urine Dipstick Normal Normal, 0.2 mg/dL, 1.0 mg/dL 05/27/2024 8:03 PM EDT [facility] pH, Urine (dipstick) 7.5 5.0 - 8.0 05/27/2024 8:03 PM EDT [facility] Blood, Urine Dipstick Negative Negative 05/27/2024 8:03 PM EDT [facility] Ketone, Urine Dipstick Negative Negative 05/27/2024 8:03 PM EDT [facility] Nitrite, Urine Dipstick Negative Negative 05/27/2024 8:03 PM EDT [facility] Leukocytes, Urine Dipstick Negative Negative 05/27/2024 8:03 PM EDT [facility] Specific Marks Urine Automated 1.013 1.005 - 1.030 05/27/2024 8:03 PM EDT [facility] Appearance, Urine Dipstick Clear Clear 05/27/2024 8:03 PM EDT [facility] Color, Urine Dipstick Yellow Yellow, Dark Yellow 05/27/2024 8:03 PM EDT [facility] Urine URINE SPECIMEN OBTAINED BY CLEAN CATCH PROCEDURE / Unknown Non Blood Collection / Unknown 05/27/2024 4:57 PM EDT 05/27/2024 6:56 PM EDT Sophy White CNM URINE ORDERABLES [facility] [address] documented in this encounter Visit Diagnoses Not on filedocumented in this encounter Administered Medications Inactive Administered Medications - up to 3 most recent administrations Medication Order MAR Action Action Date Dose Rate Site acetaminophen (Tylenol) tablet 975 mg 975 mg, Oral, EVERY 8 HOURS PRN, Starting on Jenelle 05/27/24 at 1635, Until Jenelle 05/27/24 at 2133, Pain, - Maximum dose of acetaminophen is 4,000 mg from all sources in 24 hours. - Unless otherwise specified, when ordered PRN for pain, acetaminophen should be given first if other PRN pain medications are ordered., Routine Given 05/27/2024 5:02 PM EDT 975 mg lactated Ringers 500 mL IV bolus Intravenous, ONCE, 1 dose, On Jenelle 05/27/24 at 1700 New Bag 05/27/2024 5:00 PM EDT 500 mL/hr ondansetron (pf) (Zofran) (2 mg/mL) injection 4 mg 4 mg, Intravenous, EVERY 8 HOURS PRN, Starting on Jenelle 05/27/24 at 1634, Until Jenelle 05/27/24 at 2133, Nausea, Routine Given 05/27/2024 4:59 PM EDT 4 mg documented in this encounter Active and Recently Administered Medications Times are shown in EDT. Scheduled Medication Order 05/25/2024 05/26/2024 05/27/2024 lactated Ringers 500 mL IV bolus (COMPLETED) Intravenous, ONCE, 1 dose, On Jenelle 05/27/24 at 1700 1700 (New Bag - Prov ider: Ania Lindsay RN) PRN Medication Order 05/25/2024 05/26/2024 05/27/2024 acetaminophen (Tylenol) tablet 975 mg 975 mg, Oral, EVERY 8 HOURS PRN, Starting on Jenelle 05/27/24 at 1635, Until Jenelle 05/27/24 at 2133, Pain, - Maximum dose of acetaminophen is 4,000 mg from all sources in 24 hours. - Unless otherwise specified, when ordered PRN for pain, acetaminophen should be given first if other PRN pain medications are ordered., Routine 1702 (Given - Provid er: Ania Lindsay RN) ondansetron (pf) (Zofran) (2 mg/mL) injection 4 mg 4 mg, Intravenous, EVERY 8 HOURS PRN, Starting on Jenelle 05/27/24 at 1634, Until Jenelle 05/27/24 at 2133, Nausea, Routine 1659 (Given - Provid er: Ania Lindsay RN) documented in this encounter Additional Health Concerns Infection Onset Date Last Indicated Resolved Time Rule Out Respiratory 05/27/2024 05/27/2024 024 10:24 PM EDT Rule Out COVID-19 05/27/2024 05/27/2024 05/27/2024 10:24 PM EDT documented as of this encounter Care Teams Last Repairer Helper Relationship Specialty Start Date End Date Kenia Lawrence APRN [address] [place], [place] [id number] PCP - General Family Medicine 09/29/23 documented as of this encounter
--- OUTSIDE RECORDS SUMMARY | 2024-09-20 11:03 | XMS_ITS | Encounter Summary ---
Author Organization [facility] [place] [address] Care Team Providers Care Runway Model Name Role Phone None Primary Care Provider Unavailabl e Encounter Details Date Type Department Care Team (Latest Contact Info) Description 05/18/2023 10:00 AM EDT - 05/18/2023 11:59 PM EDT Hospital Encounter Non-[place] [address] Discharge Disposition: Home Social History Tobacco Use Types Packs/Day Years Used Date Smoking Tobacco: Every Day Cigarettes 1 15 Smokeless Tobacco: Never Comments:Smokess 0.5 - 1 pac ks of cigarettes daily x 13 - 14 years. Alcohol Use Standard Drinks/Week Comments Not Currently 0 (1 standard drink = 0.6 oz pur e alcohol) Sex and Gender Information Value Date Recorded Sex Assigned at Female 03/02/2024 7:39 AM EDT Gender Identity Female 03/02/2024 7:39 AM EDT Sexual Orientation Bisexual 03/02/2024 7: 39 AM EDT documented as of this encounter Medications at Time of Discharge Medication Sig Dispensed Refills Start Date End Date Antacid-Antigas 200-200-20 mg/5 mL Suspension COMBINE 10 [...] each 07/29/2022 fluticasone propionate (Flonase) 50 mcg/actuation [place], SuspensionIndications :allergic rhinitis 1 spray by Each [...] Take 1 tablet by mouth as needed. nicotine (Nicoderm CQ) 21 mg/24 hr Patch 24 hrIndications:Smoking Change 1 patch on the skin daily for 42 days. 42 patch 04/18/2023 05/30/2023 nicotine (Nicoderm CQ) 14 mg/24 hr Patch 24 hrIndications:Smoking Change 1 patch on the skin daily for 14 days. 14 patch 05/31/2023 06/14/2023 nicotine (Nicoderm CQ) 7 mg/24 hr Patch 24 hrIndications:Smoking Change 1 patch on the skin daily for 14 days. 14 patch 06/15/2023 06/29/2023 QuickVue At-Home COVID-19 Test Kit See Admin Instructions. 11/19/2022 08/12/2023 ondansetron (Zofran) 4 mg tablet Zofran 4 mg tablet Take 1 tablet every 6-8 hours by oral route as directed for 3 days. 06/04/2022 03/02/2024 Norvasc 2.5 mg Tablet Take 1 tablet by mouth daily. 90 tablet 2 10/31/2022 08/12/2023 lidocaine (Xylocaine) 2 % Solution TAKE 10 ML BY MOUTH EVERY 8 HOURS WITH ANTACID Strength: 2 % 100 mL 1 10/31/2022 03/09/2024 famotidine (Pepcid) 40 mg Tablet Take 1 tablet by mouth 2 times daily. 180 tablet 2 10/31/2022 08/15/2024 nitroGLYcerin (Nitrostat) 0.4 mg Tablet, Sublingual Place 1 tablet under the tongue every 5 minutes as needed for Chest pain. 30 tablet 1 10/31/2022 08/13/2024 benzonatate (Tessalon) 100 mg Capsule Take 1 capsule by mouth 3 times daily as needed for Cough. 12 tablet 10/20/2022 08/12/2023 norethindrone (MICRONOR) 0.35 mg Tablet Take 1 tablet by mouth daily. 84 tablet 5 10/05/2022 03/09/2024 magnesium oxide (Mag-Ox) 400 mg (241.3 mg magnesium) Tablet Take 1 tablet by mouth daily. 30 tablet 12 07/31/2022 08/12/2023 ibuprofen (Advil) 600 mg Tablet Take 1 tablet by mouth every 6 hours. 30 tablet 12 07/29/2022 03/09/2024 clonazePAM (KlonoPIN) 1 mg Tablet Take 1 mg by mouth 3 times daily as needed. 12/23/2021 03/02/2024 vitamin C 500 mg Tablet TAKE ONE TABLET BY MOUTH EVERY DAY 08/24/2021 08/12/2023 sucralfate (Carafate) 1 gram Tablet TAKE 1 TABLET BY MOUTH TWICE DAILY ON AN EMPTY STOMACH 10/11/2020 08/12/2023 documented as of this encounter Plan of Treatment Upcoming Encounters Date Type Department Care Team (Late st Contact Info) Description 09/21/2024 8:15 AM EST Routine Obstetrics [place] [phone] Emili Cabrera MD [facility] [place] [address] 09/26/2024 6:00 PM EST Appointment [facility] [place] [phone] 10/16/2024 [place] [phone] Dudley Aguilar MD [facility] DR OBSTETRICS [place] [address] 11/08/2024 10:00 AM EST Hospital Encounter Non-Invasive Cardiology Lab [facility] [place] [address] Arrived documented as of this encounter Procedures Procedure Name Priority Date/Time Associated Diagnosis Comments PRO ICD INTERROGATION REMOTE UP TO 90 DAYS Routine 03/25/2023 11:25 AM EDT documented in this encounter Results * Cardiac Device Check - Remote (03/25/2023 11:25 AM EDT) Anatomical Region Laterality Modality Other 03/25/2023 11:2 5 AM EDT Bertin Rubi MD IMPLANTABLE CARDIAC DEVICE documented in this encounter Visit Diagnoses Not on filedocumented in this encounter Care Teams Runway Model Relationship Specialty Start Date End Date None None PCP - General 05/30/22 09/28/23 documented as of this encounter
--- OUTSIDE RECORDS SUMMARY | 2024-09-20 11:03 | XMS_ITS | Encounter Summary ---
Author Organization [facility] [place] [address] Care Team Providers Care Wildfire Prevention Specialist Name Role Phone None Primary Care Provider Unavailabl e Encounter Details Date Type Department Care Team (Latest Contact Info) Description 04/18/2023 Travel Social History Tobacco Use Types Packs/Day [...] AM EST Routine Obstetrics [place] [address] Emili Cabrera MD [facility] MATERNAL [place] [address] 09/26/2024 6:00 PM EST Appointment [facility] [place] [address] 10/16/2024 Hospital Encounter [place] [address] Dudley Aguilar MD [facility] DR OBSTETRICS [place] [address] 11/08/2024 10:00 AM EST Hospital Encounter Non-Invasive [place] [address] Arrived documented as of this encounter Visit Diagnoses Not on filedocumented in this encounter Care Teams Wildfire Prevention Specialist Relationship Specialty Start Date End Date None None PCP - General 05/30/22 09/28/23 documented as of this encounter
--- OUTSIDE RECORDS SUMMARY | 2024-09-20 11:03 | XMS_ITS | Encounter Summary ---
Author Organization [facility] Address [facility] [place] [address] Care Team Providers Care Icebox Man Name Role Phone None Primary Care Provider Unavailabl e Encounter Details Date Type Department Care Team (Late st Contact Info) Description 08/06/2023 Interpretation Only [address] [phone] Bandar Pruett MD [address] [place] [address] Social History Tobacco Use Types Packs/Day Years [...] AM EST Routine Obstetrics [place] [address] Emili Cabrera MD [facility] MATERNAL [place] [address] 09/26/2024 6:00 PM EST Appointment [facility] [place] [address] 10/16/2024 [place] [address] Dudley Aguilar MD [facility] DR OBSTETRICS [place] [address] 11/08/2024 10:00 AM EST Hospital Encounter [place] [address] Arrived documented as of this encounter Procedures Procedure Name Priority Date/Time Associated Diagnosis Comments CT FACIAL BONES W CONTRAST STAT 08/06/2023 12:24 PM EDT documented in this encounter Results * CT Face w Contrast (08/06/2023 12:24 PM EDT) PT CLASS E RAD ADMITDTTM RAD PT RAD INFO [id number]^C ONTARINO^BLAIR EPH RAD EXAM DESC CTFACEW^CT FACE W/ CNTRST^RIS RAD Anatomical Region Laterality Modality Head Computed Tomogra phy Impressions 08/06/2023 12:35 PM EDT Mild right periorbital preseptal soft tissue swelling without post septal extension and no abscess. Thank you for letting us participate in the care of this patient. ??If you are a health care provider and have any questions regarding this report, please contact the number below. ??For patients who have questions please contact the health career representative that requested your imaging first. ? Electronically signed by: Harjinder Rincon MD, [facility] ([phone]), at 08/06/2023 12:35 PM Narrative 08/06/2023 12:35 PM EDT EXAMINATION: CT FACE W/ CNTRST CLINICAL HISTORY: Right periorbital cellulitis TECHNIQUE: CT face performed after the intravenous administration of 100cc of Omnipaque 350. COMPARISON: CT face 12/07/2022 FINDINGS: Small amount of the chin has not been included in the study. Mild right periorbital preseptal soft tissue swelling. No post septal extension. No rim-enhancing collection to suggest abscess. The globes appear normal. No inflammatory changes elsewhere throughout the face. No acute osseous abnormality. The paranasal sinuses are clear as are the middle ear cavities and mastoid air cells. Procedure Note Harjinder Rincon MD - 08/06/2023 EXAMINATION: CT FACE W/ CNTRST CLINICAL HISTORY: Right periorbital cellulitis TECHNIQUE: CT face performed after the intravenous administration of 100cc ofOmnipaque 350. COMPARISON: CT face 12/07/2022 FINDINGS: Small amount of the chin has not been included in the study. Mild right periorbital preseptal soft tissue swelling. No post septalextension. No rim-enhancing collection to suggest abscess. The globes appear normal.No inflammatory changes elsewhere throughout the face. No acute osseous abnormality. The paranasal sinuses are clear as are the middle earcavities and mastoid air cells. IMPRESSION Mild right periorbital preseptal soft tissue swelling without postseptal extension and no abscess. Thank you for letting us participate in the care of this patient. If youare a health care provider and have any questions regarding this report,please contact the number below. For patients who have questions please contactthe health career representative that requested your imaging first. Electronically signed by: Harjinder Rincon MD, [facility]([phone]), at 08/06/2023 12:35 PM Bandar Pruett MD IMG CT ORDERABLES documented in this encounter Visit Diagnoses Not on filedocumented in this encounter Care Teams Icebox Man Relationship Specialty Start Date End Date None None PCP - General 05/30/22 09/28/23 documented as of this encounter
--- OUTSIDE RECORDS SUMMARY | 2024-09-20 11:03 | XMS_ITS | Encounter Summary ---
Author Organization [facility] [place] [address] Care Team Providers Care Payment Rep Name Role Phone None Primary Care Provider Unavailabl e Encounter Details Date Type Department Care Team (Late st Contact Info) Description 09/17/2023 Telephone Cardiology at [address] [phone] Yoanna Gilliam Social History Tobacco Use Types Packs/Day Years [...] encounter Miscellaneous Notes * Telephone Encounter - Yoanna Gilliam - 09/17/2023 1:58 PM EST LVM to call back and schedule an appt w/ CHRISTIAN for She is having burning discomfort at her site which is not a recent incision but has been complaining about it lately for the past 2 months. Can be 30 minutes. Yoanna Gilliam EP Scheduling documented in this encounter Plan of Treatment Upcoming Encounters Date Type Department Care Team (Late st Contact Info) Description 09/21/2024 8:15 AM EST Routine Obstetrics [place] [phone] Emili Cabrera MD [facility] [place]ERNAL [place] [address] 09/26/2024 6:00 PM EST Appointment [facility] [place] [phone] 10/16/2024 [place] [phone] Dudley Aguilar MD [facility] DR OBSTETRICS [place] [address] 11/08/2024 10:00 AM EST Hospital Encounter [place] [phone] Arrived documented as of this encounter Visit Diagnoses Not on filedocumented in this encounter Care Teams Payment Rep Relationship Specialty Start Date End Date None None PCP - General 05/30/22 09/28/23 documented as of this encounter
--- OUTSIDE RECORDS SUMMARY | 2024-09-20 11:03 | XMS_ITS | Encounter Summary ---
Author Organization [facility] [place] [address] Care Team Providers Care Intake Nurse Name Role Phone None Primary Care Provider Unavailabl e Encounter Details Date Type Department Care Team (Late st Contact Info) Description 04/18/2023 Telephone Cardiology at [address] [phone] Cindi Wynne Social History Tobacco Use Types Packs/Day Years [...] encounter Miscellaneous Notes * Telephone Encounter - Cindi Wynne - 04/18/2023 10:53 AM EDT Pt missed her appt this morning at 10:30 with APRN. DIANE De Leon asking pt to call back if she would like to reschedule. Cindi Wynne Sr. Procedure Mailing Section Clerk/EP Scheduling documented in this encounter Plan of Treatment Upcoming Encounters Date Type Department Care Team (Late st Contact Info) Description 09/21/2024 8:15 AM EST Routine Obstetrics [place] [address] Emili Cabrera MD [facility] MATERNAL [place] [address] 09/26/2024 6:00 PM EST Appointment [facility] [place] [phone] 10/16/2024 Hospital [place] [phone] Dudley Aguilar MD [facility] DR OBSTETRICS [place] [address] 11/08/2024 10:00 AM EST Hospital Encounter [place] [phone] Arrived documented as of this encounter Visit Diagnoses Not on filedocumented in this encounter Care Teams Intake Nurse Relationship Specialty Start Date End Date None None PCP - General 05/30/22 09/28/23 documented as of this encounter
--- OUTSIDE RECORDS SUMMARY | 2024-09-20 11:03 | XMS_ITS | Encounter Summary ---
Author Organization [facility] Address [facility] [place] [address] Care Team Providers Care Tobacco Sizer Name Role Phone Kenia Lawrence APRN Primary Care Provider [phone]- [phone] Encounter Details Date Type Department Care Team (Latest Contact Info) Description 09/29/2023 Travel Social History Tobacco Use Types Packs/Day [...] AM EST Routine Obstetrics [place] [address] Emili Cabrera MD [facility] [place] [address] 09/26/2024 6:00 PM EST Appointment [facility] [place] [phone] 10/16/2024 Hospital Encounter [place] [phone] Dudley Aguilar MD [facility] DR OBSTETRICS [place] [address] 11/08/2024 10:00 AM EST Hospital Encounter Non-[place] [phone] Arrived documented as of this encounter Visit Diagnoses Not on filedocumented in this encounter Care Teams Tobacco Sizer Relationship Specialty Start Date End Date Kenia Lawrence APRN [address] [place] [address] PCP - General Family Medicine 09/29/23 documented as of this encounter
--- OUTSIDE RECORDS SUMMARY | 2024-09-20 11:03 | XMS_ITS | Encounter Summary ---
Author Organization [facility] [place] [address] Care Team Providers Care Game Warden Name Role Phone None Primary Care Provider Unavailabl e Encounter Details Date Type Department Care Team (Latest Contact Info) Description 09/09/2023 Travel Social History Tobacco Use Types Packs/Day [...] AM EST Routine Obstetrics [place] [address] Emili Cabrera MD [facility] [place] [address] 09/26/2024 6:00 PM EST Appointment [facility] [place] [address] 10/16/2024 Hospital Encounter [place] [address] Dudley Aguilar MD [facility] DR OBSTETRICS [place] [address] 11/08/2024 10:00 AM EST Hospital Encounter Non-[place] [address] Arrived documented as of this encounter Visit Diagnoses Not on filedocumented in this encounter Care Teams Game Warden Relationship Specialty Start Date End Date None None PCP - General 05/30/22 09/28/23 documented as of this encounter
--- OUTSIDE RECORDS SUMMARY | 2024-09-20 11:03 | XMS_ITS | Encounter Summary ---
Author Organization [facility] [place] [address] Care Team Providers Care Straightening Press Operator Name Role Phone MelindaKenia ford ADRIAN Primary Care Provider +1- [phone] Encounter Details Date Type Department Care Team (Late st Contact Info) Description 04/15/2024 Interpretation Only [address] [phone] Danielle Ricci MD [address] [place] [address] Social History Tobacco Use Types Packs/Day Years Used Date Smoking Tobacco: Every Day Cigarettes 1 15 Smokeless Tobacco: Never Comments:Smokess 0.5 - 1 pac ks of cigarettes daily x 13 - 14 years. Alcohol Use Standard Drinks/Week Comments Not Currently 0 (1 standard drink = 0.6 oz pur e alcohol) [facility] Utilities Answer Date Recorded In the past 12 months has [employer], gas, oil, or water [employer] threatened to shut off services in your [...] in a jail (including now)? No 03/02/2024 Estimated Date of [...] AM EST Routine Obstetrics [place] [address] Emili Cabrera MD [facility] [place]ERNAL [place] [address] 09/26/2024 6:00 PM EST Appointment [facility] Birthing [place] [phone] 10/16/2024 Hospital [place] [address] Dudley Aguilar MD [facility] OBSTETRICS [place] [address] 11/08/2024 10:00 AM EST Hospital Encounter Non-Invasive Cardiology Lab [place] [phone] Arrived documented as of this encounter Visit Diagnoses Not on filedocumented in this encounter Care Teams Straightening Press Operator Relationship Specialty Start Date End Date Kenia Lawrence, [employer]IVER [address] [place] [address] PCP - General Family Medicine 09/29/23 documented as of this encounter
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
--- OUTSIDE RECORDS SUMMARY | 2024-09-20 11:03 | XMS_ITS | Encounter Summary ---
Author Organization [facility] Address [facility] [place] [address] Care Team Providers Care Box Sorter Name Role Phone MelindaKenia ford ADRIAN Primary Care Provider [phone] Encounter Details Date Type Department Care Team (Latest Contact Info) Description 02/12/2024 10:00 AM EDT - 02/12/2024 11:59 PM EDT Hospital Encounter [place] [address] Discharge Disposition: Home Social History Tobacco Use [...] Sig Dispensed Refills Start Date End Date amLODIPine (Norvasc) 10 mg tablet Take 1 [...] each 07/29/2022 fluticasone propionate (Flonase) 50 mcg/actuation [place], SuspensionIndications :allergic rhinitis 1 spray by Each [...] 1 tablet by mouth as needed. isosorbide mononitrate CR (Imdur) 30 mg ER 24 hr tablet Take 1 tablet by mouth daily. 90 tablet 3 09/09/2023 03/09/2024 amoxicillin (Amoxil) 875 mg tablet Every 12 hours. 08/05/2023 03/02/2024 gabapentin (Neurontin) 100 mg capsule 1 capsule every 24 hours. 07/22/2023 03/02/2024 ondansetron (Zofran) 4 mg tablet Zofran 4 mg tablet Take 1 tablet every 6-8 hours by oral route as directed for 3 days. 06/04/2022 03/02/2024 lidocaine (Xylocaine) 2 % Solution TAKE 10 [...] Chest pain. 30 tablet 1 10/31/2022 08/13/2024 norethindrone (MICRONOR) 0.35 mg Tablet Take 1 tablet by mouth daily. 84 tablet 5 10/05/2022 03/09/2024 ibuprofen (Advil) 600 mg Tablet Take 1 tablet by mouth every 6 hours. 30 tablet 12 07/29/2022 03/09/2024 clonazePAM (KlonoPIN) 1 mg Tablet Take 1 mg by mouth 3 times daily as needed. 12/23/2021 03/02/2024 documented as of this encounter Plan of Treatment Upcoming Encounters Date Type Department Care Team (Late st Contact Info) Description 09/21/2024 8:15 AM EST Routine Obstetrics [place] [phone] Emili Cabrera MD [facility] [place]ERNAL [place] [address] 09/26/2024 6:00 PM EST Appointment [facility] [place] [phone] 10/16/2024 Hospital [place] [address] Dudley Aguilar MD [facility] DR OBSTETRICS [place] [address] 11/08/2024 10:00 AM EST Hospital Encounter Non[place] [phone] Arrived documented as of this encounter Procedures Procedure Name Priority Date/Time Associated Diagnosis Comments PRO ICD INTERROGATION REMOTE UP TO 90 DAYS Routine 12/15/2023 5:09 PM EST documented in this encounter Results * Cardiac Device Check - Remote (12/15/2023 5:09 PM EST) Anatomical Region Laterality Modality Other 12/15/2023 5:09 PM EST Isai Yap MD IMPLANTABLE CARDIAC DEVICE documented in this encounter Visit Diagnoses Not on filedocumented in this encounter Care Teams Box Sorter Relationship Specialty Start Date End Date Kenia Lawrence APRN [address] [place] [address] PCP - General Family Medicine 09/29/23 documented as of this encounter
--- OUTSIDE RECORDS SUMMARY | 2024-09-20 11:03 | XMS_ITS | Encounter Summary ---
Author Organization [facility] Address [facility] [place] [address] Care Team Providers Care Dean Of Men Name Role Phone MelindaKenia ford ADRIAN Primary Care Provider [phone]- [phone] Encounter Details Date Type Department Care Team (Latest Contact Info) Description 11/14/2023 10:00 AM EST - 11/14/2023 11:59 PM [facility] Hospital Encounter Non-Invasive Cardiology Lab [facility] [place] [address] Discharge Disposition: Home Social History Tobacco Use [...] each 07/29/2022 fluticasone propionate (Flonase) 50 mcg/actuation [place], SuspensionIndications :allergic rhinitis 1 spray by Each [...] AM EST Routine Obstetrics [place] [address] Emili Cabrera MD [facility] [place] [address] 09/26/2024 6:00 PM EST Appointment [facility] [phone] 10/16/2024 [place] [phone] Dudley Aguilar MD [facility] DR OBSTET[place]ICS [place] [address] 11/08/2024 10:00 AM EST Hospital Encounter Non-[place]vasive [place] [phone] Arrived documented as of this encounter Procedures Procedure Name Priority Date/Time Associated Diagnosis Comments PRO ICD INTERROGATION REMOTE UP TO 90 DAYS Routine 09/30/2023 10:36 AM EST documented in this encounter Results * Cardiac Device Check - Remote (09/30/2023 10:36 AM EST) Anatomical Region Laterality Modality Other 09/30/2023 10:3 6 AM EST Isai Yap MD IMPLANTABLE CARDIAC DEVICE documented in this encounter Visit Diagnoses Not on filedocumented in this encounter Care Teams Dean Of Men Relationship Specialty Start Date End Date Kenia Lawrence APRN [address] [place] [address] PCP - General Family Medicine 09/29/23 documented as of this encounter
--- OUTSIDE RECORDS SUMMARY | 2024-09-20 11:03 | XMS_ITS | Encounter Summary ---
Author Organization [facility] [place] [address] Care Team Providers Care Electric Needle Specialist Name Role Phone Melinda Kenia Marilin CAMPBELL Primary Care Provider +1- [phone] Encounter Details Date Type Department Care Team (Latest Contact Info) Description 03/02/2024 Travel Social History Tobacco Use Types Packs/Day Years Used Date Smoking Tobacco: Every Day Cigarettes 1 15 Smokeless Tobacco: Never Comments:Smokess 0.5 - 1 pac ks of cigarettes daily x 13 - 14 years. Alcohol Use Standard Drinks/Week Comments Not Currently 0 (1 standard drink = 0.6 oz pur e alcohol) [facility] Utilities Answer Date Recorded In the past 12 months has e [employer], gas, oil, or water [employer] threatened to shut off services in your [...] AM EST Routine Obstetrics [place] [address] Emili Cabrera MD [facility] [place] [address] 09/26/2024 6:00 PM EST Appointment [facility] [place] [address] 10/16/2024 Hospital Encounter [facility] [place] [address] Dudley Aguilar MD [facility] DR OBSTETRICS [place] [address] 11/08/2024 10:00 AM EST Hospital Encounter Non-Invasive [place] [address] Arrived documented as of this encounter Visit Diagnoses Not on filedocumented in this encounter Care Teams Electric Needle Specialist Relationship Specialty Start Date End Date Kenia Lawrence APRN [address] [place] [address] PCP - General Family Medicine 09/29/23 documented as of this encounter
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
--- OUTSIDE RECORDS SUMMARY | 2024-09-20 11:03 | XMS_ITS | Encounter Summary ---
Author Organization [facility] Address [facility] [place] [address] Care Team Providers Care Criminal Investigator Name Role Phone MelindaKenia ford ADRIAN Primary Care Provider [phone]- [phone] Encounter Details Date Type Department Care Team (Late st Contact Info) Description 03/03/2024 Orders Only Obstetrics [place] [address] [facility] [address] OBSTETRICS [place] [address] Social History Tobacco Use Types Packs/Day Years Used Date Smoking Tobacco: Every Day Cigarettes 1 15 Smokeless Tobacco: Never Comments:Smokess 0.5 - 1 pac ks of cigarettes daily x 13 - 14 years. Alcohol Use Standard Drinks/Week Comments Not Currently 0 (1 standard drink = 0.6 oz pur e alcohol) [facility] Utilities Answer Date Recorded In the past 12 months has [employer], gas, oil, or water [employer] threatened to shut off services in your [...] a long term (including now)? No 03/02/2024 Estimated Date of [...] AM EST Routine Obstetrics [place] [address] [facility] [place] [address] 09/26/2024 6:00 PM EST Appointment [facility] Birthing [place] [phone] 10/16/2024 [place] [phone] [facility] OBSTETRICS [place] [address] 11/08/2024 10:00 AM EST Hospital Encounter Non-Invasive Cardiology Lab [place] [phone] Arrived documented as of this encounter Visit Diagnoses Not on filedocumented in this encounter Care Teams Criminal Investigator Relationship Specialty Start Date End Date Kenia Lawrence APRN [address] [place] [address] PCP - General Family Medicine 09/29/23 documented as of this encounter
--- OUTSIDE RECORDS SUMMARY | 2024-09-20 11:03 | XMS_ITS | Encounter Summary ---
Author Organization [facility] [place] [address] Care Team Providers Care Felt Hat Mellowing Machine Operator Name Role Phone None Primary Care Provider Unavailabl e Encounter Details Date Type Department Care Team (Latest Contact Info) Description 08/16/2023 10:00 AM EDT - 08/16/2023 11:59 PM EDT Hospital Encounter Non-[place] [address] Discharge Disposition: Home Social History Tobacco Use [...] Sig Dispensed Refills Start Date End Date meclizine (Antivert) 25 mg chewable tablet 1/2 [...] each 07/29/2022 fluticasone propionate (Flonase) 50 mcg/actuation [place], SuspensionIndications :allergic rhinitis 1 spray by Each [...] 1 capsule every 24 hours. 07/22/2023 03/02/2024 Norvasc 2.5 mg tablet Take 3 tablets by mouth at bedtime 90 tablet 2 08/12/2023 09/09/2023 ondansetron (Zofran) 4 mg tablet Zofran 4 [...] AM EST Routine Obstetrics [place] [address] Emili Cabrera MD [facility] [address] [place]ERNAL [place] [address] 09/26/2024 6:[address] [facility] [place] [address] 10/16/2024 Hospital [place] [address] Dudley Aguilar MD [facility] DR OBSTETRICS [place] [address] 11/08/2024 10:00 AM EST Hospital Encounter Non-[place] [address] Arrived documented as of this encounter Procedures Procedure Name Priority Date/Time Associated Diagnosis Comments PRO ICD INTERROGATION REMOTE UP TO 90 DAYS Routine 06/24/2023 10:08 AM EDT documented in this encounter Results * Cardiac Device Check - Remote (06/24/2023 10:08 AM EDT) Anatomical Region Laterality Modality Other 06/24/2023 10:0 8 AM EDT Romana Triana MD IMPLANTABLE CARDIAC DEVICE documented in this encounter Visit Diagnoses Not on filedocumented in this encounter Care Teams Felt Hat Mellowing Machine Operator Relationship Specialty Start Date End Date None None PCP - General 05/30/22 09/28/23 documented as of this encounter
--- OUTSIDE RECORDS SUMMARY | 2024-09-20 11:03 | XMS_ITS | Encounter Summary ---
Author Organization [facility] Address [facility] [place] [address] Care Team Providers Care Juke Box Servicer Name Role Phone MelindaKenia ford Marilin CAMPBELL Primary Care Provider +1- [phone] Reason for Referral * Diagnostic Test (Routine) - Closed Specialty Diagnoses / Procedures Referred By Nellie mckeon Referred To Contact Cardiology Diagnoses Acute pelvic pain, female Chest discomfort Procedures Echocardiogram Transthoracic Kaila Hameed MD [facility] [place] [address] [facility] [place] [address] Referral ID Status Reason Start Date Expiration Date V isits Requested Visits Authorized [id number] Closed Specialty Service Requested 04/21/2024 04/21/2025 1 1 Reason for Visit * Reason Comments Routine Visit Encounter Details Date Type Department Care Team (Late st Contact Info) Description 04/21/2024 9:15 AM EDT Routine Obstetrics [place] [address] Kaila Hameed MD [facility] [place] [address] GA: 14w4d Social History Tobacco Use Types Packs/Day Years Used Date Smoking Tobacco: Every Day Cigarettes 1 15 Smokeless Tobacco: Never Comments:Smokess 0.5 - 1 pac ks of cigarettes daily x 13 - 14 years. Alcohol Use Standard Drinks/Week Comments Not Currently 0 (1 standard drink = 0.6 oz pur e alcohol) [facility] Utilities Answer Date Recorded In the past 12 months has th e [employer], gas, oil, or water company threatened to [...] place to sleep or slept in a retirement (including now)? No 03/02/2024 Estimated Date of [...] Sign Reading Time Taken Comments Blood Pressure 138/68 04/21/2024 9:21 AM EDT Pulse - - Temperature - - Respiratory Rate - - Oxygen Saturation - - Inhaled Oxygen Concentration - - Weight 76.9 kg (169 lb 8 oz) 04/21/2024 9:21 AM EDT Height - - Body Mass Index 29.09 09/29/2023 9:30 AM EST documented in this encounter Progress Notes * Kaila Hameed MD - 04/21/2024 9:15 AM EDT No FM felt, no LOF, no bleeding or anival. C/o sharp twinges in chest with coughing. No SOB. C/o pelvic pressure, urinary frequency and vaginal discharge. 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 History of COVID-19 Z86.16 Cigarette smoker F17.210 [place] Scentific SQ ICD, single, in situ Z95.810 Recurrent major depressive episodes, moderate F33.1 Encounter for induction of labor Z34.90 Chronic hypertension in O10.919 NAD Abdomen soft, NT Uterus NT, FHR present 160 SSE white d/c, normal vagina and vulvar Wet prep no clue, trich or yeast seen Send UCx Vaginitis swab Maternal echo labs Panorama F/u 4 weeks documented in this encounter Plan of Treatment Upcoming Encounters Date Type Department Care Team (Late st Contact Info) Description 09/21/2024 8:15 AM EST Routine Obstetrics [place] [address] Emili Cabrera MD [facility] [place] [address] 09/26/2024 6:00 PM EST Appointment [facility] [place] [phone] 10/16/2024 [place] [address] Dudley Aguilar MD [facility] DR OBSTET[place]ICS [place] [address] 11/08/2024 10:00 AM EST Hospital Encounter Non-Invasive [place] [address] Arrived documented as of this encounter Procedures Procedure Name Priority Date/Time Associated Diagnosis Comments VAGINITIS/OSIS PANEL (MHMH/APD/NLH/CGP) Routine 04/21/2024 9:15 AM EDT Acute pelvic pain, female URINE CULTURE Routine 04/21/2024 9:15 AM EDT Acute pelvic pain, female POCT URINE DIPSTICK Routine 04/21/2024 Acute pelvic pain, female documented in this encounter Results * US OB Detailed Morphology (05/31/2024 8:44 AM EDT) WORKSTATION ID [id number] 1 [facility] Anatomical Region Laterality Modality Pelvis, Abdomen Ultrasound [...] who have questions, please contact the health youth career specialist that requested your imaging first. ? Romana Torres, Staff Physician Electronically Signed Final Report ?? 05/31/2024 08:53 am Narrative 05/31/2024 8:54 AM EDT OBSTETRICS REPORT ?(Signed Final 05/31/2024 08:53 am) PATIENT INFO: ID #: ? [id number] ?: ??[birth year] (38 yrs)(F) Name: ? JOSE JUAN LUNDY ? Visit Date: 05/31/2024 08:00 am PERFORMED BY: Performed By: ? Arcelia Bateman RDMS Attending: ?Brian LOUISE, Romana Banks Referred By: ?KAILA HAMEED Location: ? [facility]) PROVIDED: [facility] - Detailed Morphology - [id number] ? [id number] INDICATIONS: 20 weeks gestation of ?Z3A.20 detailed [...] ?72.0 ??% FL/AC: ? 23.3 ??% ? Est. FW: ? 339 ??gm ?0 lb [...] Arch: ? Visualized SVC: ? Visualized Cardiac [place]: ?Visualized Diaphragm: ? Visualized 3 Vessel View: [...] 05/31/2024 08:53 am) PATIENT INFO: ID #: [id number] : [birth year] (38 yrs)(F) Name: JOSE JUAN LUNDY Visit Date: 05/31/2024 08:00 am PERFORMED BY: Performed By: Arcelia Bateman RDMS Attending: Romana Torres MD Referred By: KAILA HAMEED Location: [facility] PROVIDED: [facility] - Detailed Morphology - [id number] INDICATIONS: 20 weeks gestation of Z3A.20 detailed [...] Visualized Ductal Arch: Visualized SVC: Visualized Cardiac [place]: Visualized Diaphragm: Visualized 3 Vessel View: Visualized [...] who have questions, please contact the health youth career specialist that requested your imaging first. Romana Torres, Staff Physician Electronically Signed Final Report 05/31/2024 08:53 am Kaila Hameed MD IMG US OB ORDERABL ES * ECHO COMPLETE (05/05/2024 11:18 AM EDT) Anatomical Region Laterality Modality Cardiac Other 05/05/2024 10:3 8 AM EDT Narrative 05/05/2024 11:34 AM EDT [address] [place] [address] ? Echocardiogram Report Name: JOSE JUAN LUNDY ? Study Date: 05/05/2024 10:38 AMBP: 136/98 mmHg ? Patient Location: 4A : 1985 ? Height: 163 cm ? Account: [id number] Age: 38 yrs ? Weight: 77 kg Gender: Female ?BSA: 1.8 m2 Ordering Physician: KAILA HAMEED Referring Physician: KAILA HAMEED Performed By: SAUNDRA Vaughn Reason For Study: Chest discomfort Exam Location: [facility]. Interpretation Summary -Left ventricular systolic function is normal. Left ventricular ejection fraction is estimated visually at 65%. There are no segmental wall motion abnormalities. -The right ventricle is of normal size. Right ventricular systolic function is normal. -Normal valves. -Compared with the previous echo performed on 03/14/22, there is no significant change. Procedure Complete-[id number]. Satisfactory quality. There is normal sinus rhythm. [...] Note Graham Moreira MD - 05/05/2024 1 [place] [address] Echocardiogram Report Name: JOSE JUAN LUNDY Study Date: 0:38 AMBP: 136/98 mmHg Patient Location: : 1985 Height: 163 cm Account: [id number] Age: 38 yrs Weight: 77 kg Gender: Female BSA: 1.8 m2 Ordering Physician: KAILA HAMEED Referring Physician: KAILA HAMEED Performed By: SAUNDRA Vaughn Reason For Study: Chest discomfort Exam Location: [facility]. Interpretation Summary -Left ventricular systolic function is normal. Left ventricular ejectionfraction is estimated visually at 65%. There are no segmental wall motionabnormalities. -The right ventricle is of normal size. Right ventricular systolicfunction is normal. -Normal valves. -Compared with the previous echo performed on 03/14/22, there is nosignificant change. Procedure Complete-[id number]. Satisfactory quality. There is normal sinus rhythm. [...] Aneurysmal 15-16diffuse Kaila Hameed MD ECHO ORDERABLES * Panorama Screen (04/23/2024 8:04 AM EDT) Miladis Report Summary LOW RISK [facility] Comment:LOW RISK Miladis Report Note See Notes [facility] Trisomy 21 Result (JOSE) Low Risk [facility] Trisomy 18 Result (JOSE) Low Risk [facility] Trisomy 13 Result (JOSE) Low Risk [facility] Monosomy X Result (JOSE) Low Risk [facility] Triploidy Result (JOSE) Low Risk [facility] Sex of Fetus Female [facility] Miladis Footnotes See Notes MAR Y [facility] Comment: Testing Methodology DNA isolated from maternal blood, which contains placental DNA, is amplified at specific loci using a targeted PCR assay and is sequenced using a high-throughput sequencer. fraction is determined using a proprietary algorithm incorporating data from single nucleotide polymorphism-based (SNP-based) next-generation sequencing [Vannesa E et al. Obstet Gynecol. 2014 May;124(2 Pt [...] appropriate. Disclaimers This test was performed by [facility]. [address], [place] [address] (CLIA ID [id number]). The performance characteristics of this test were developed by [facility]. This test has not been cleared or approved by the U.S. Food and Drug Administration (FDA). This laboratory is regulated under CLIA as qualified to perform high-complexity testing. ??2020 [facility]. All Rights Reserved. Please refer to the attached PDF report Reviewed By: Abhijit Aguilar M.D., Ph.D., [facility], Senior Modular Home Crew Member CLIA Welding Supervisor: Catalina Abarca, Ph.D., [facility] IF THE ORDERING PROVIDER HAS QUESTIONS OR WISHES TO DISCUSS THE RESULTS, PLEASE CONTACT US AT [phone] #3. Ask for the NIPT genetic counselor electronics repair technician. Blood 04/23/2024 8:04 AM EDT 04/23/2024 12:45 PM EDT Kaila Hameed MD LAB SEND OUT ORDER SUNDEEP [facility] [place] [address] * Vaginitis/osis Panel ([facility]HM[facility]/APD/NLH/CGP) (04/21/2024 9:15 AM EDT) Bacterial vaginosis Negative Negative [facility] Natalia sp. Group Negative Negative [facility] Natalia Glabrata Negative Negative [facility] Trichomonas vaginalis Negative Negative [facility] BV/CV/TV Interp Results from these nucleic acid amplification assay [...] and BV Assay were tested on the [employer] Instrument. These assays are cleared by the [place] Food & Drug Administration for clinical testing. [facility] Vaginal 04/21/2024 9:15 AM EDT 04/21/2024 12:39 PM EDT Narrative Resulting Agency Comment Spec In Lab Kaila Hameed MD MICROBIOLOGY - GEN ERAL ORDERABLES Performing Organization Address [facility] Co de Phone Number [facility] [place] [address] * (ABNORMAL) Urine culture Clean Catch Urine (04/21/2024 9:15 AM EDT) Urine Culture 50,000-99,000 cfu/ml mixed mucosal al Note: Culture shows multiple bacterial species suggesting mucosal contamination. (A) [facility] Clean Catch Urine 04/21/2024 9:15 AM EDT 04/21/2024 12:39 PM EDT Narrative Resulting Agency Comment Spec In Lab Kaila Hameed MD MICROBIOLOGY - GEN ERAL ORDERABLES Performing Organization Address [facility] Co de Phone Number [facility] [place] [address] * POCT urine dipstick (04/21/2024) POC Sp [place] 1.01 1.002 - 1.030 POC pH, UA 5 5.0 - 8.5 POC Leuk, UA trace Negative - Negative POC Nitrite, UA neg Negative - Negative POC Protein, UA trace Negative - Negative mg/dL POC Glucose, UA normal Normal - Normal mg/dL POC Ketone, UA neg Negative - Negative POC Urobil, UA normal 0.2 - 1.0 mg/dL POC Bili, UA neg Negative - Negative POC Blood, UA trace Negative - Negative rajeev/uL Kaila Hameed MD POINT OF CARE TEST ORDERABLES documented in this encounter Visit Diagnoses Diagnosis Acute pelvic pain, female Unspecified symptom associated with female genital organs Chest discomfort Other chest pain Acute pelvic pain, female Unspecified symptom associated with female genital organs Chest discomfort Other chest pain Acute pelvic pain, female Unspecified symptom associated with female genital organs Chest discomfort Other chest pain documented in this encounter Care Teams Juke Box Servicer Relationship Specialty Start Date End Date Kenia Lawrence APRN [address] [place] [address] PCP - General Family Medicine 09/29/23 documented as of this encounter
--- OUTSIDE RECORDS SUMMARY | 2024-09-20 11:03 | XMS_ITS | Encounter Summary ---
Author Organization [facility] Address [facility] [place] [address] Care Team Providers Care Bisque Finisher Name Role Phone None Primary Care Provider Unavailabl e Encounter Details Date Type Department Care Team (Late st Contact Info) Description 08/06/2023 Interpretation Only [address] [address] Bandar Pruett MD [address] [place] [address] Social History Tobacco Use Types Packs/Day Years [...] AM EST Routine Obstetrics [place] [address] Emili Cabrera MD [facility] MATERNAL [place] [address] 09/26/2024 6:00 PM EST Appointment [facility] [place] [phone] 10/16/2024 Hospital Encounter [place] [address] Dudley Aguilar MD [facility] DR OBSTETRICS AND [place] [address] 11/08/2024 10:00 AM EST Hospital Encounter Non[place] [address] Arrived documented as of this encounter Visit Diagnoses Not on filedocumented in this encounter Care Teams Bisque Finisher Relationship Specialty Start Date End Date None None PCP - General 05/30/22 09/28/23 documented as of this encounter
--- OUTSIDE RECORDS SUMMARY | 2024-09-20 11:03 | XMS_ITS | Encounter Summary ---
Author Organization [facility] Address [facility] [place] [address] Care Team Providers Care Bin Cleaner Name Role Phone None Primary Care Provider Unavailabl e Encounter Details Date Type Department Care Team (Late st Contact Info) Description 08/01/2023 Interpretation Only [address] [phone] Kenia Lawrence APR[place] [address] [place] [address] Social History Tobacco Use Types Packs/Day Years [...] AM EST Routine Obstetrics [place] [address] Emili Cabrera MD [facility] [place] [address] 09/26/2024 6:00 PM EST Appointment [facility] [place] [address] 10/16/2024 Hospital [place] [address] Dudley Aguilar MD [facility] DR OBSTETRICS [place] [address] 11/08/2024 10:00 AM EST Hospital Encounter Non-[place] [address] Arrived documented as of this encounter Procedures Procedure Name Priority Date/Time Associated Diagnosis Comments XR LUMBAR SPINE 2 OR 3 VIEWS Routine 08/01/2023 9:48 AM EDT documented in this encounter Results * XR Lumbar Spine 2 Or 3 Views (Generic) (08/01/2023 9:48 AM EDT) PT CLASS O RAD ADMITDTTM RAD PT RAD INFO [id number]^P RIESTLEY^AYL A RAD EXAM DESC XLSP2^XR L-SPINE AP+LAT ROUTINE^RIS RAD Anatomical Region Laterality Modality L-spine N/A Radiographic Ewa ging Impressions 08/01/2023 11:32 AM EDT Normal lumbar spine. Thank you for letting us participate in the care of this patient. ??If you are a health care provider and have any questions regarding this report, please contact the number below. ??For patients who have questions please contact the health caregiver assisted living that requested your imaging first. ? Electronically signed by: Monie Becerril MD, [facility] ([phone]), at 08/01/2023 11:32 AM Narrative 08/01/2023 11:32 AM EDT EXAMINATION: XR L-SPINE AP+LAT ROUTINE CLINICAL HISTORY: 38yo F with N/T of b/LUEs, eval for cervical stenosis TECHNIQUE: AP, lateral and spot lateral lumbosacral junction lumbar spine radiographs COMPARISON: MRI August 04, 2012 FINDINGS: There are 5 nonrib-bearing lumbar vertebral bodies with preserved height on the AP projection. A battery pack/stimulator device projects over the T11-L1 vertebral bodies on the lateral view. Within this limitation, no fracture, erosion or periostitis. Intervertebral disc height is normal. Facet joint spacing and alignment are normal. No spondylolisthesis. Small osteophytes at the inferior margins of each sacroiliac joint with preserved alignment. No focal soft tissue abnormality. Procedure Note Monie Becerril MD - 08/01/2023 EXAMINATION: XR L-SPINE AP+LAT ROUTINE CLINICAL HISTORY: 38yo F with N/T of b/LUEs, eval for cervical stenosis TECHNIQUE: AP, lateral and spot lateral lumbosacral junction lumbar spineradiographs COMPARISON: MRI August 04, 2012 FINDINGS: There are 5 nonrib-bearing lumbar vertebral bodies with preserved heighton the AP projection. A battery pack/stimulator device projects over the T11-L1 vertebral bodies on the lateral view. Within this limitation, nofracture, erosion or periostitis. Intervertebral disc height is normal. Facet joint spacing and alignmentare normal. No spondylolisthesis. Small osteophytes at the inferior margins of each sacroiliac joint with preserved alignment. No focal soft tissue abnormality. IMPRESSION Normal lumbar spine. Thank you for letting us participate in the care of this patient. If youare a health care provider and have any questions regarding this report,please contact the number below. For patients who have questions please contactthe health caregiver assisted living that requested your imaging first. Electronically signed by: Monie Becerril MD, [facility]([phone]), at 08/01/2023 11:32 AM Kenia Lawrence APRN IMG DX ORDERABLES documented in this encounter Visit Diagnoses Not on filedocumented in this encounter Care Teams Bin Cleaner Relationship Specialty Start Date End Date None None PCP - General 05/30/22 09/28/23 documented as of this encounter
--- OUTSIDE RECORDS SUMMARY | 2024-09-20 11:03 | XMS_ITS | Encounter Summary ---
Author Organization [facility] [place] [address] Care Team Providers Care Compliance Manager Name Role Phone Kenia Lawrence APRN Primary Care Provider +1- [phone] Encounter Details Date Type Department Care Team (Late st Contact Info) Description 10/01/2023 [facility] Only [address] [phone] Kenia Lawrence APR[place] [address] [place] [address] Social History Tobacco Use Types Packs/Day Years [...] AM EST Routine Obstetrics [place] [address] Emili Cabrrea MD [facility] [place] [address] 09/26/2024 6:00 PM EST Appointment [facility] [place] [phone] 10/16/2024 [place] [address] Dudley Aguilar MD [facility] DR OBSTETRICS [place] [address] 11/08/2024 10:00 AM EST Hospital Encounter Non-[place] [phone] Arrived documented as of this encounter Procedures Procedure Name Priority Date/Time Associated Diagnosis Comments XR CHEST PA AND LATERAL Routine 10/01/2023 3:57 PM EST documented in this encounter Results * XR Chest PA & Lateral (Generic) (10/01/2023 3:57 PM EST) PT CLASS O RAD ADMITDTTM [id number] RAD PT RAD INFO [id number]^Priestl ey^Kenia RAD EXAM DESC XCXR2^XR Chest 2 Views^RIS RAD Anatomical Region Laterality Modality Chest N/A Radiographic Ewa ging 10/01/2023 3:57 PM EST Impressions 10/01/2023 4:16 PM EST No interval change. No pneumonia detected. Thank you for letting us participate in the care of this patient. ??If you are a health care provider and have any questions regarding this report, please contact the number below. ??For patients who have questions please contact the health palliative care specialist that requested your imaging first. ? Electronically signed by: Luis F Valladares MD, [facility] ([phone]), at 10/01/2023 4:16 PM Narrative 10/01/2023 4:16 PM EST EXAMINATION: XR Chest 2 Views CLINICAL HISTORY: Bronchitis TECHNIQUE: 2 views of the chest COMPARISON: March 29, 2023 FINDINGS: A pulse generating device and its solitary midline subcutaneous lesion are in stable position. The lungs are well-inflated and clear. The heart is normal in size. No pneumothorax or pleural effusions detected. Procedure Note Luis F Valladares MD - 10/01/2023 EXAMINATION: XR Chest 2 Views CLINICAL HISTORY: Bronchitis TECHNIQUE: 2 views of the chest COMPARISON: March 29, 2023 FINDINGS: A pulse generating device and its solitary midline subcutaneous lesion arein stable position. The lungs are well-inflated and clear. The heart isnormal in size. No pneumothorax or pleural effusions detected. IMPRESSION No interval change. No pneumonia detected. Thank you for letting us participate in the care of this patient. If youare a health care provider and have any questions regarding this report,please contact the number below. For patients who have questions please contactthe health palliative care specialist that requested your imaging first. Electronically signed by: Luis F Valladares [facility]([phone]), at 10/01/2023 4:16 PM Kenia Lawrence APRN IMG DX ORDERABLES documented in this encounter Visit Diagnoses Not on filedocumented in this encounter Care Teams Compliance Manager Relationship Specialty Start Date End Date Kenia Lawrence APRN [address] [place] [address] PCP - General Family Medicine 09/29/23 documented as of this encounter
--- OUTSIDE RECORDS SUMMARY | 2024-09-20 11:03 | XMS_ITS | Encounter Summary ---
Author Organization [facility] Address [facility] [place] [address] Care Team Providers Care Bridge Crew Member Name Role Phone None Primary Care Provider Unavailabl e Encounter Details Date Type Department Care Team (Late st Contact Info) Description 08/01/2023 Interpretation Only [address] [phone] Kenia Lawrence [place] [address] [place] [address] Social History Tobacco Use Types Packs/Day Years [...] AM EST Routine [place] [address] Emili Cabrera MD [facility] [place] [address] 09/26/2024 6:00 PM EST Appointment [facility] [place] [address] 10/16/2024 Hospital [place] [address] Dudley Aguilar MD [facility] DR OBSTETRICS AND GYNECOLOGY [place], [place] [id number] 11/08/2024 10:00 AM EST Hospital Encounter Non-Invasive Cardiology [place] [address] Arrived documented as of this encounter Procedures Procedure Name Priority Date/Time Associated Diagnosis Comments XR CERVICAL SPINE 4 OR 5 VIEWS Routine 08/01/2023 9:48 AM EDT documented in this encounter Results * XR Cervical Spine 4 or 5 Views (08/01/2023 9:48 AM EDT) PT CLASS O RAD ADMITDTTM RAD PT RAD INFO [id number]^P RIESTLEY^AYL A RAD EXAM DESC [id number]^XR C-SPINE ROUTINE^RIS RAD Anatomical Region Laterality Modality L-spine N/A Radiographic Ewa ging Impressions 08/01/2023 11:44 AM EDT Normal radiographs of the cervical spine. I have personally reviewed the image(s) and the resident's interpretation and agree with the findings, Santos Evangelista MD at 08/01/2023 11:44 AM Thank you for letting us participate in the care of this patient. ??If you are a health care provider and have any questions regarding this report, please contact the number below. ??For patients who have questions please contact the health lawn care specialist that requested your imaging first. ? Electronically signed by: Santos Evangelista MD, [facility] ([phone]), at 08/01/2023 11:44 AM Narrative 08/01/2023 11:44 AM EDT EXAMINATION: XR C-SPINE ROUTINE CLINICAL HISTORY: 38yo F with N/T of b/LUEs, eval for cervical stenosis TECHNIQUE: AP, lateral, swimmer's, bilateral oblique, and open-mouth odontoid views of the cervical spine, 6 images. COMPARISON: CT cervical spine 03/29/2023. FINDINGS: C1-C5 are visualized on the lateral projection. No spondylolisthesis. Normal relation of the C1 and C2 lateral masses on the open-mouth odontoid view. No acute fracture or loss of vertebral body height. No appreciable degenerative change with maintained intervertebral disc heights. Clear lung apices. Dental amalgam. Survey of the skull base is unremarkable. Mild degenerative changes of the visualized mid thoracic spine. Procedure Note Santos Evangelista MD - 08/01/2023 EXAMINATION: XR C-SPINE ROUTINE CLINICAL HISTORY: 38yo F with N/T of b/LUEs, eval for cervical stenosis TECHNIQUE: AP, lateral, swimmer's, bilateral oblique, and open-mouth odontoid viewsof the cervical spine, 6 images. COMPARISON: CT cervical spine 03/29/2023. FINDINGS: C1-C5 are visualized on the lateral projection. No spondylolisthesis. Normal relation of the C1 and C2 lateral masses onthe open-mouth odontoid view. No acute fracture or loss of vertebral body height. No appreciable degenerative change with maintained intervertebral discheights. Clear lung apices. Dental amalgam. Survey of the skull base isunremarkable. Mild degenerative changes of the visualized mid thoracic spine. IMPRESSION Normal radiographs of the cervical spine. I have personally reviewed the image(s) and the resident's interpretationand agree with the findings, Santos Evangelista MD at 08/01/2023 11:44 AM Thank you for letting us participate in the care of this patient. If youare a health care provider and have any questions regarding this report,please contact the number below. For patients who have questions please contactthe health lawn care specialist that requested your imaging first. Electronically signed by: Santos Evangelista MD, [facility]([phone]), at 08/01/2023 11:44 AM Kenia Lawrence APRN IMG DX ORDERABLES documented in this encounter Visit Diagnoses Not on filedocumented in this encounter Care Teams Bridge Crew Member Relationship Specialty Start Date End Date None None PCP - General 05/30/22 09/28/23 documented as of this encounter
--- OUTSIDE RECORDS SUMMARY | 2024-09-20 11:03 | XMS_ITS | Encounter Summary ---
Author Organization [facility] Address [facility] [place] [address] Care Team Providers Care Lump Inspector Name Role Phone MelindaKenia ford ADRIAN Primary Care Provider [phone]- [phone] Encounter Details Date Type Department Care Team (Latest Contact Info) Description 11/04/2023 11:00 AM EST TH Visit (TeleHealth) Cardiology at [address] [address] Shanita Zamudio PA [facility] [address] Hypertension, unspecified type Social History Tobacco Use [...] as of this encounter Progress Notes * Shanita Zamudio PA - 11/04/2023 11:00 AM EST Images from the original note were not included. Interventional Cardiology Clinic Visit Subjective: HPI: 38 y.o. female with past medical history of VF arrest (witnessed arrest, extensive resuscitation by fiance with bystander CPR and ROSC after prolonged event) 10/2021 due to severe coronary vasospasm s/p [employer] subcutaneous sICD implant 11/12/21, HTN in , tobacco smoker, GERD, borderline personality disorder, PTSD chronic, anxiety, chest pain syndrome. Cardiac cath shows incomplete coronary vasospasm during angiogram. Previously followed by Dr Brasher, Dr Zurita, last seen by me 4 weeks ago. She returns for follow up for BP management. We increased her amlodipine last visit to 7.5 mg po qd. She continues to have elevated BP in clinic today. She has symptoms of chest heaviness and has burning sensations at her ICD site. Was seen by EP with a device check, both of which were normal without events on the deviceback in September. No s/sx of infection, no fever or chills. Some episodes of fatigue. She recounts continued epigastric discomfort mostly surrounding eating. She has pepcid and was recently prescribed sucralafate but has not started taking yet. She has also not started taking her imdur and feels reluctant to take it due to prior medication side effects. From last visit: She saw Dr Brasher last 10/2022 when [...] hospitalized for IV ABX in the ED ([facility]), symptoms seem to be improving. A couple of weeks ago, she awoke early in the morning with chest discomfort, numbness and tingling all over. Concerned her ICD may have fired. No dyspnea, no syncope, no PND. Patient Active Problem List Diagnosis Chronic hypertension in Encounter for induction of labor Subcutaneous defibrillator implanted 11/12/2021 Overview Note: Pulse generator: [employer] S-ICD Pulse Generator Model A219 Serial Number [id number] Implanted 11/12/21 Ventricular electrode: SQ electrode Model 3501 Bipolar Serial Number [id number] Implanted 11/12/21 Cigarette smoker Coronary artery vasospasm [...] Note: Added automatically from request for surgery [id number] Borderline personality disorder Post-traumatic stress disorder, chronic [...] as needed. fluticasone propionate (Flonase) 50 mcg/actuation Whiteside, Suspension 1 spray by Each Nare route [...] needed. Objective: Vitals: Temp: -- Heart Rate: -- Resp: -- BP: -- SpO2: -- Heart Rate from SpO2: -- Physical Exam: General- No acute distress, sitting comfortably in exam room chair, anxious HEENT- Head atraumatic, normocephalic Neck- No JVD noted Cardiovascular- S1/S2 regular rate and rhythm. No murmur, rub or gallop Lungs- Clear to auscultation bilaterally Extremities- Pulses equal bilaterally. No edema noted Neuro- A&Ox3 Cardiac Cath 10/2021: Procedures: * Coronary Angiography * Insertion Of Flow Directed Catheter * Oximetry * Venous Line / Sheath Insert * Hypothermia Device Placement * Intra-Aortic Balloon Pump (IABP) Insertion * Access Site Angiography * Arterial Blood Gases * Vascular Ultrasound Pre Case Status: These procedures were performed on an emergent basis. History Aniya Luque is a 36 year old woman. She has hypertension. The patient's smoking status is Current with Current - Every Day frequency, using cigarettes. Cigarette use is Light (<10/day). She has a history of ventricular tachycardia/ventricular fibrillation. The patient had a cardiac arrest. Cardiac arrest occurred at this facility and out of hospital. Out of hospital cardiac arrest was witnessed and occurred after arrival of EMS. First cardiac arrest rhythm was shockable. Prior to the initiation of this procedure, the patient was designated as ASA Class V. The [facility] clinical frailty scale is 2: Well. Diagnostic Tests: Prior Coronary Angiography: LV ejection fraction within 6 months is 68%. Electrocardiography: EKG was assessed by ECG. EKG was Abnormal. EKG showed ventricular fibrillation, sustained ventricular tachycardia, newly diagnosed non-sustained ventricular tachycardia, ST Deviation >= 0.5 mm, dynamic EKG changes and new Antiarrhythmic therapy was administered prior to this case. Medications Prior to Procedure: Antiarrhythmic Agent Other and Aspirin. Indications for Diagnostic Cath: The priority of the diagnostic procedure was Emergent. The indication for the dairy and food laboratory assistant visit is cardiac arrhythmia. Chest pain symptom assessment was: Atypical Angina. This patient had cardiovascular instability due to ventricular arrhythmias. Ventricular support was supplied with mechanical support with Intra-aortic balloon pump (IABP) Inserted during procedure and prior to intervention. Technique: A 7Fr sheath was inserted in the right femoral artery utilizing the Seldinger technique. A 9.5Fr sheath was inserted in the right femoral vein utilizing the Seldinger technique. A 9Fr sheath was inserted in the right internal jugular vein utilizing the Seldinger technique. The left coronary artery was injected utilizing a 6Fr JL 4 catheter. A total of 100cc of Omnipaque were opened, 16cc of Omnipaque were administered and 84cc of Omnipaque were wasted. Radiation: Fluoro time was 3.9 minutes, dose area product was 10,300 mGYcm2 and air kerma was 93 mGY. See the case log for additional details. Comments: 7 Fr Maquette IABP placed via RFA using fluoroscopic guidance. Appropriate pump function and augmentation of the aortic pressure waveform observed. 9.5 Fr Quattro central venous cooling catheter placed via RFV under fluoroscopic guidance. Distal tip of catheter positioned in the IVC just below the diaphragm. Targeted temperative management set for 36 degrees C. The patient received the following medications prior to and during the procedure: Unfractionated Heparin. Hemodynamics: Right Heart Pressures Resting: Syst Diast EDP a v m RA 10 10 9 RV 24 8 PA 21 10 14 PCW 10 13 9 Hemodynamic Profile: Profile 1 CO 4.03 CI 2.29 TSR 1,350 SVR 1,171 TPR 278 PVR 99 Technique Estimated Chris Left Heart Pressures Resting: Syst Diast EDP a v m Ao 81 56 68 Oximetry: Location %Sat Location %Sat Superior Vena Cava 73.0 Main Pulmonary Artery 67.0 Coronary Angiography: Dominance: Right Left Main No significant obstructive coronary disease but patient with severe spasm after initial contrast injection. Left Anterior Descending No obstructive disease but significant coronary spasm after initial contrast injection. Left Circumflex No obstructive disease but significant coronary spasm after initial contrast injection. Right Coronary Artery This vessel was not injected. Vascular Access: Vascular Access Angiogram: A selective angiogram at the right femoral artery revealed severe spasm of the mid common iliac extending to sheath insertion site in the common femoral, near-occlusive. Vascular Ultrasound: Ultrasound of the right femoral artery was used to guide access and showed vessel patent with no disease. Needle entry was observed. Point of Care Testing: ABG: Arterial Blood gasses were performed using the I-Stat analyzer at 16:57: pH: 7.38, pCO2: 36.4, pO2: 315.0, sPO2: 100%, HCO3: 21 on FIO2: intubated. I-Stat: I-Stat was performed using the I-Stat analyzer at 16:57: Na+: 140, K+: 4.5, Hct: 34%, Hb: 11.6. Conclusions: * Severe diffuse left coronary spasm with electrical instability. * Successful placement of IABP. * Successful placement of central venous cooling catheter. Complications/Events: During this case, the patient had ventricular tachycardia and/or ventricular fibrillation. After initial injection of contrast of the LCA, patient had increasingly elevated ST elevations and widening QRS that eventually degraded into multiple episodes of VT/VF requiring multiple defibrillations. Comments: Patient brought to the dairy and food laboratory assistant due to recurrent VT/VF requiring mutiple defibrillations. ST elevations noted on telemetry prior to VT/VF but post ACLS ECG showed no evidence of ischemia. On initial femoral angiogram, patient noted to have severe iliofemoral spasm. Mild luminal irregularities of left coronary seen with initial angiogram, with progressive diffuse spasm of LM, LAD and LCX on one additional non-selective injection and one final selective injection. Progressive QRS widening with ST deviation was seen during these small volume/low pressure hand injections and shortly afterwards she developed VT => rapid deterioration into VF which responded to a single shock. An electrical storm followed with repeat episodes requiring ~8 countershocks, each effective in restoring NSR but only temporarily with a persistently wide QRS. Lidocaine infusion was added to amiodarone already on board; an IABP was placed via the RFA and after this she had no further episodes of VT. We elected not to perform angiography of the RCA. [place] Jeanie catheter placed via the RIJ with hemodynamics as noted. A nitroglycerin infusion was started => MAP then observed to fall ffrom mid 80s to high 70s, a 250 cc fluid bolus was given. Cooling catheter placed via RFV to replace Arctic Sun which had been in place on arrival to the lab. The attending physician was present for the entire procedure. Assessment and Plan: 38 y.o. female with past medical history of VF arrest (witnessed arrest, extensive resuscitation byfiance with bystander CPR and ROSC after prolonged event) 10/2021 due to severe coronary vasospasm s/p [employer] subcutaneous sICD implant 11/12/21, HTN in , tobacco smoker, GERD, borde rline personality disorder, PTSD chronic, anxiety, chest pain syndrome. Cardiac cath shows incomplete coronary vasospasm during angiogram. Presents in follow up with elevated BP for BP check. Has symptoms of atypical angina and burning sensations around ICD site which looks non infected and well healed. No recent ICD check. Will perform early interim check though she recounts no events. Will haveher f/up in device clinic for a check. Increase amlodipine to 10 mg, add imdur 30 mg po qd and watch for s/sx of side effects such as GEORGE. Plan: 1. Continue norvasc to 10 mg po qhs 2. ICD Device check WNL, no events 3. Add imdur 30 mg po qd, start taking 4. Smoking cessation 5. F/up 2 months to assess med compliance and symptoms 6. Recommend taking pepcid and sucralfate as prescribed F/up 6 months Shanita Zamudio PA-C documented in this encounter Plan of Treatment Upcoming Encounters Date Type Department Care Team (Late st Contact Info) Description 09/21/2024 8:15 AM EST Routine Obstetrics [place] [address] Emili Cabrera MD [facility] DR MATERNAL [place] [address] 09/26/2024 6:00 PM EST Appointment [facility] [place] [phone] 10/16/2024 Hospital [place] [phone] Dudley Aguilar MD [facility] DR OBSTETRICS [place] [address] 11/08/2024 10:00 AM EST Hospital Encounter Non-Invasive [place] [phone] Arrived documented as of this encounter Visit Diagnoses Diagnosis Hypertension, unspecified type documented in this encounter Care Teams Lump Inspector Relationship Specialty Start Date End Date Kenia Lawrence, ADRIAN [address] [place] [address] PCP - General Family Medicine 09/29/23 documented as of this encounter
--- OUTSIDE RECORDS SUMMARY | 2024-09-20 11:03 | XMS_ITS | Encounter Summary ---
Author Organization [facility] Address [facility] [place] [address] Care Team Providers Care Laundry Operator Name Role Phone Kenia Lawrence APRN Primary Care Provider +1- [phone] Encounter Details Date Type Department Care Team (Late st Contact Info) Description 02/26/2024 Interpretation Only [address] [phone] Kenia Lawrence [place] [address] [place] [address] Social History Tobacco Use Types Packs/Day Years [...] AM EST Routine Obstetrics [place] [address] Emili Cabrera MD [facility] [place] [address] 09/26/2024 6:00 PM EST Appointment [facility] [place] [phone] 10/16/2024 [place] [phone] Dudley Aguilar MD [facility] DR OBST[place] [address] 11/08/2024 10:00 AM EST Hospital Encounter Non-Invasive [place] [phone] Arrived documented as of this encounter Procedures Procedure Name Priority Date/Time Associated Diagnosis Comments US OB TRANSVAGINAL Routine 02/26/2024 8: 22 AM EDT documented in this encounter Results * US OB Viability Transvaginal (02/26/2024 8:22 AM EDT) PT CLASS O RAD ADMITDTTM [id number] [facility] PT [facility] INFO [id number]^Medical Technologist Chemistry joseph^Kenia RAD EXAM DESC UOBTV^US OB Transvaginal^RIS [facility] WORKSTATION ID [id number] [facility] Anatomical Region Laterality Modality Pelvis, Abdomen Ultrasound 02/26/2024 8:00 AM EDT Impressions 02/26/2024 8:51 AM EDT Single intrauterine at 6 weeks 5 days. Thank you for letting us participate in the care of this patient. ??If you are a health care provider and have any questions regarding this report, please contact the number below. ??For patients who have questions please contact the health healthcare facility administrator that requested your imaging first. ? Narrative 02/26/2024 8:51 AM EDT EXAMINATION: US OB Transvaginal CLINICAL HISTORY: 38 y/o female approx 5 weeks EGA, recent ED visit for bleeding, US normal, repeat for surveillance TECHNIQUE: Transvaginal pelvic sonogram COMPARISON: February 17, 2024 FINDINGS: There is single intrauterine . Somers-rump length is 7.2 mm equal 6 weeks 5 days. EDC October 16, 2024. heart rate is 124 bpm. No mass or pathological fluid collection is seen. Left ovary is normal size. Right ovary was not visualized. Procedure Note Nelson Alejandro MD - 02/26/2024 EXAMINATION: US OB Transvaginal CLINICAL HISTORY: 38 y/o female approx 5 weeks EGA, recent ED visit for bleeding, US normal, repeat for surveillance TECHNIQUE: Transvaginal pelvic sonogram COMPARISON: February 17, 2024 FINDINGS: There is single intrauterine . Somers-rump length is 7.2 mm equal6 weeks 5 days. EDC October 16, 2024. heart rate is 124 bpm. No mass or pathological fluid collection is seen. Left ovary is normal size. Right ovary was not visualized. IMPRESSION Single intrauterine at 6 weeks 5 days. Thank you for letting us participate in the care of this patient. If youare a health care provider and have any questions regarding this report,please contact the number below. For patients who have questions please contactthe health healthcare facility administrator that requested your imaging first. Kenia Lawrence APRN IMG US OB ORDERABL ES documented in this encounter Visit Diagnoses Not on filedocumented in this encounter Care Teams Laundry Operator Relationship Specialty Start Date End Date Kenia Lawrence APRN [address] [place] [address] PCP - General Family Medicine 09/29/23 documented as of this encounter
--- OUTSIDE RECORDS SUMMARY | 2024-09-20 11:03 | XMS_ITS | Encounter Summary ---
[facility] Address [facility] [place] [address] Care Team Providers Care Signing Teacher Name Role Phone MelindaKenia ford ADRIAN Primary Care Provider +1- [phone] Encounter Details Date Type Department Care Team (Late st Contact Info) Description 03/09/2024 3:00 PM EDT TH Visit (TeleHealth) Cardiology at [address] [address] Ej Zurita MD [facility] [place] [address] Subcutaneous defibrillator implanted 11/12/2021; Chronic hypertension in ; Coronary artery vasospasm; Post-traumatic stress disorder, chronic; History of cardiac arrest Social History Tobacco Use Types Packs/Day Years Used Date Smoking Tobacco: Every Day Cigarettes 1 15 Smokeless Tobacco: Never Comments:Smokess 0.5 - 1 pac ks of cigarettes daily x 13 - 14 years. Alcohol Use Standard Drinks/Week Comments Not Currently 0 (1 standard drink = 0.6 oz pur e alcohol) [facility] Utilities Answer Date Recorded In the past 12 months has th e [employer], gas, oil, or water company threatened to [...] in a detention (including now)? No 03/02/2024 Estimated Date of Delivery Comme nts Yes 10/16/2024 Based on Other B asis Sex and Gender Information Value Date Recorded Sex Assigned at Female 03/02/2024 7:39 AM EDT Gender Identity Female 03/02/2024 7:39 AM EDT Sexual Orientation Bisexual 03/02/2024 7: 39 AM EDT documented as of this encounter Patient Instructions * Patient Instructions* Ej Zurita MD - 03/09/2024 3:00 PM EDT Your provider today: Dr. Zurita Team: Ruddy Team Primary Nurse: Shantell Moon Primary Molded Grid And Parts Inspector/Scheduling: Gina May To contact our office please use phone [phone] and fax [phone]. option 1- for appointment needs option 2- if you are a provider option 3- for prescription needs option 4- if you'd like the leave a message for a nurse Your call will be answered by a general cardiology laboratory scientist who will direct your call. documented in this encounter Progress Notes * Ej Zurita MD - 03/09/2024 3:00 PM EDT [facility] [place] [address] CARDIOLOGY OUTPATIENT PROGRESS NOTE PRIMARY CARE PROVIDER: Kenia aLwrence APRN REFERRING PROVIDER: Kenia Lawrence PROBLEM LIST: Patient Active Problem List Diagnosis Chronic hypertension in Encounter for induction of labor [facility] SQ ICD, single, in situ Pulse generator: Emblem MRI S-ICD Pulse Generator Model A219 Serial Number [id number] Implanted 11/12/21 Ventricular electrode: SQ electrode Model 3501 Bipolar Serial Number [id number] Implanted 11/12/21 Cigarette smoker Coronary artery vasospasm [...] disease Added automatically from request for surgery [id number] Borderline personality disorder Post-traumatic stress disorder, chronic [...] Current Outpatient Medications Medication Sig Dispense Refill terconazole (TERAZOL 7) 0.4 % Cream Place 1 applicator vaginally nightly. 45 g 0 diazePAM (Valium) 2 mg tablet Take 1 tablet by mouth Three Times Daily for DHE. amLODIPine (Norvasc) 10 mg tablet Take 1 tablet by mouth daily. 90 tablet 3 isosorbide mononitrate CR (Imdur) 30 mg ER 24 hr tablet Take 1 tablet by mouth daily. (Patient not taking: Reported on 03/02/2024) 90 tablet 3 meclizine (Antivert) 25 mg chewable tablet 1/2 tablet as needed Orally up to three times a day for 7 days lidocaine (Xylocaine) 2 % Solution TAKE 10 ML BY MOUTH EVERY 8 HOURS WITH ANTACID Strength: 2 % (Patient not taking: Reported on 03/02/2024) 100 mL 1 Antacid-Antigas 200-200-20 mg/5 mL Suspension COMBINE [...] by mouth daily. (Patient not taking: Reportedon 03/02/2024) 84 tablet 5 acetaminophen (Tylenol) 325 mg Tablet Take 3 tablets by mouth every 6 hours as needed for Pain. 30 tablet 1 ibuprofen (Advil) 600 mg Tablet Take 1 tablet by mouth every 6 hours. (Patient not taking: Reportedon 03/02/2024) 30 tablet 12 polyethylene glycoL (Miralax) 17 gram Powder in Packet Take 17 g by mouth daily. 14 each 0 fluticasone propionate (Flonase) 50 mcg/actuation [place], Suspension 1 spray by Each Nare route [...] detected. Estimated Date of Delivery: 10/16/24 Currently 8 weeks . Unplanned. She reports a high degree of anxiety about her and planning for delivery. Fortunately Aniya has not had any interval cardiac events. +Has ED visits for chest pain since 2021. It's been a while since she's gone to the ED. Usually goes to [facility]. Hasn't needed to be admitted for chest pain. She typically is cleared to go home from the emergency department after an EKG and troponins. +seeing PCP Kenia Lance often. Seeing almost weekly +joint pain, difficulty ambulating + random chest discomfort, not associated with exertion, lasting couple minutes, sometimes off and on throughout the day + episodes of feeling that she'd been shocked ICD + It has been a couple of months since she used SLN, using occasionally + dry heaving, some nausea, feeling weak/sick this + anxiety, tearfulness this call regarding risk Exercise: Aching legs and foot pain. Goes on walks with her children ICD check: ICD 12/17/23: not on anticoag. [place]~~S-ICD Report~Monitoring period: 09/30/23 to 12/15/23~~Battery/Lead Status: 77% remaining battery life to JOSE amLODIPine (Norvasc) 10 mg tablet famotidine (Pepcid) 40 mg Tablet acetaminophen (Tylenol) 325 mg Tablet albuterol 90 mcg/actuation HFA Aerosol Inhaler terconazole (TERAZOL 7) 0.4 % Cream diazePAM (Valium) 2 mg tablet meclizine (Antivert) 25 mg chewable tablet Antacid-Antigas 200-200-20 mg/5 mL Suspension nitroGLYcerin (Nitrostat) 0.4 mg Tablet, Sublingual polyethylene glycoL (Miralax) 17 gram Powder in Packet fluticasone propionate (Flonase) 50 mcg/actuation [place], Suspension cetirizine (ZyrTEC) 10 mg Tablet fluticasone propionate (Flovent HFA) 110 mcg/actuation HFA Aerosol Inhaler ipratropium-albuteroL (Duoneb) 0.5 mg-3 mg(2.5 mg base)/3 mL Solution for Nebulization calcium carbonate (TUMS) 200 mg calcium (500 [...] Labs: Lab Results Component Value Date WBC 9.3 10/20/2022 WBC 11.0 (H) 10/05/2022 WBC 10.2 (H) 07/31/2022 HGB 14.0 10/20/2022 HGB 14.0 10/05/2022 HGB 12.6 07/31/2022 PLATELET 214 10/20/2022 PLATELET 247 10/05/2022 PLATELET 309 07/31/2022 NA 136 10/20/2022 NA 141 10/05/2022 NA 136 07/23/2022 K 4.1 10/20/2022 K 4.1 10/05/2022 K 3.7 07/23/2022 CL 104 10/20/2022 CL 105 10/05/2022 CL 102 07/23/2022 CO2 22 10/20/2022 CO2 25 10/05/2022 CO2 23 07/23/2022 BUN 13 10/20/2022 BUN 12 10/05/2022 BUN 6 (L) 07/23/2022 CREATININE 1.09 10/20/2022 CREATININE 0.86 10/05/2022 CREATININE 0.89 07/31/2022 TRIG 130 11/04/2021 Assessment: Aniya Luque is a 38 y.o. patient presenting for assessment of maternal cardiovascular risk in . In 2021: Cardiac catheterization and coronary CTA did not show atherosclerotic cardiovascular disease. In 2022. Her ventricular systolic function is normal. She does not have any valve disease. Since her initial event: She has not had any interval ventricular arrhythmias. Given maternal age and her history of a cardiac arrest in the context of vasospasm Aniya's remains at increased cardiovascular risk compared to normal . It is difficult to give her any exact numbers regarding the possibility of recurrence of vasospasm, however, her last was uneventful from a cardiac standpoint and I believe she can physiologically tolerate this as well if desired. There is no absolute cardiac contraindication to continued at this time. Plan: Continue amlodipine 10 mg daily If her blood pressure is greater than 130/80 suggest trialing long-acting nitrate (isosorbide mononitrate 30 mg daily) SLN PRN I will follow-up with Aniya with an echocardiogram and her second trimester. We should continue interrogating her device throughout her . Delivery timing to be determined by her obstetrics team/needs and desire to continue . Delivery [facility] to [facility] if she elects to continue this . Thank you for the opportunity to participate [...] procedures ?referring and communicating with other health pediatric acute care unit nurse (when not separately reported) ?documenting clinical information in the electronic or other health record ?independently interpreting results (not separately reported) and communicating results to the patient/family/caregiver ?care coordination (not separately reported) documented in this encounter Plan of Treatment Upcoming Encounters Date Type Department Care Team (Late st Contact Info) Description 09/21/2024 8:15 AM EST Routine Obstetrics [place] [address] Emili Cabrera MD [facility] DR MATERNAL AND [place] [address] 09/26/2024 6:00 [place] [address] 10/16/2024 Hospital Encounter [place] [address] Dudley Aguilar MD [facility] DR OBSTETRICS AND [place] [address] 11/08/2024 10:00 AM EST Hospital Encounter Non-Invasive [place] [address] Arrived documented as of this encounter Visit Diagnoses Diagnosis Subcutaneous defibrillator implanted 11/12/2021 Chronic hypertension in Benign essential hypertension complicating , childbirth, and the puerperium, unspecified as to episode of care Coronary artery vasospasm Prinzmetal angina Post-traumatic stress disorder, chronic History of cardiac arrest Personal history of sudden cardiac arrest documented in this encounter Care Teams Signing Teacher Relationship Specialty Start Date End Date Kenia Lawrence APRN [address] [place] [address] PCP - General Family Medicine 09/29/23 documented as of this encounter
--- OUTSIDE RECORDS SUMMARY | 2024-09-20 11:03 | XMS_ITS | Encounter Summary ---
Author Organization [facility] [place] [address] Care Team Providers Care Corporate Secretary Name Role Phone Melinda, Kenia Marilin CAMPBELL Primary Care Provider +1- [phone] Encounter Details Date Type Department Care Team (Late st Contact Info) Description 04/16/2024 Telephone Obstetrics [place] [address] Candace Frazier, RN Social History Tobacco Use Types Packs/Day Years Used Date Smoking Tobacco: Every Day Cigarettes 1 15 Smokeless Tobacco: Never Comments:Smokess 0.5 - 1 pac ks of cigarettes daily x 13 - 14 years. Alcohol Use Standard Drinks/Week Comments Not Currently 0 (1 standard drink = 0.6 oz pur e alcohol) [facility] Utilities Answer Date Recorded In the past 12 months has [facility] [employer], gas, oil, or water [employer] threatened to shut off services in your [...] place to sleep or slept in a alf (including now)? No 03/02/2024 Estimated Date of Delivery Comme nts Yes 10/16/2024 Based on Other B asis Sex and Gender Information Value Date Recorded Sex Assigned at Female 03/02/2024 7:39 AM EDT Gender Identity Female 03/02/2024 7:39 AM EDT Sexual Orientation Bisexual 03/02/2024 7: 39 AM EDT documented as of this encounter Miscellaneous Notes * Telephone Encounter - Candace Frazier RN - 04/16/2024 2:16 PM EDT Aniya Luque 13w6d MFM Team Next OB visit not scheduled TC returned to pt who left a message on the nurse line stating that she has questions. Unable to connect with pt. Left VM requesting a call back. [id number] - 2nd attempt to contact pt and able to connect this time. Pt states that she just needs to bescheduled for her next OB visit with MFM. Connected pt's call with nursing secretary team for scheduling. documented in this encounter Plan of Treatment Upcoming Encounters Date Type Department Care Team (Late st Contact Info) Description 09/21/2024 8:15 AM EST Routine Obstetrics [place] [address] Emili Cabrera MD [facility] [place] [address] 09/26/2024 6:00 PM EST Appointment [facility] [place] [address] 10/16/2024 Hospital [place] [address] Dudley Aguilar MD [facility] DR OBSTETRICS [place] [address] 11/08/2024 10:00 AM EST Hospital Encounter Non-Invasive [place] [address] Arrived documented as of this encounter Visit Diagnoses Not on filedocumented in this encounter Care Teams Corporate Secretary Relationship Specialty Start Date End Date Kenia Lawrence APRN [address] [place] [address] PCP - General Family Medicine 09/29/23 documented as of this encounter
--- OUTSIDE RECORDS SUMMARY | 2024-09-20 11:03 | XMS_ITS | Encounter Summary ---
Author Organization [facility] Address [facility] [place] [address] Care Team Providers Care Ethylene Compressor Operator Name Role Phone Kenia Lawrence APRN Primary Care Provider +1- [phone] Encounter Details Date Type Department Care Team (Late st Contact Info) Description 02/17/2024 Interpretation Only [facility] [address] [place] [address] Hang Beverly MD [address] [place] [address] Social History Tobacco Use Types Packs/Day Years [...] AM EST Routine Obstetrics [place] [phone] Emili Cabrera MD [facility] MATERNAL [place] [address] 09/26/2024 6:00 PM EST Appointment [facility] [place] [address] 10/16/2024 [place] [address] Dudley Aguilar MD [facility] OBSTETRICS [place] [address] 11/08/2024 10:00 AM EST Hospital Encounter Non[place] [address] Arrived documented as of this encounter Procedures Procedure Name Priority Date/Time Associated Diagnosis Comments US OB TRANSVAGINAL STAT 02/17/2024 10 :39 AM EDT documented in this encounter Results * US OB Viability Transvaginal (02/17/2024 10:39 AM EDT) PT CLASS E RAD ADMITDTTM [id number] [facility] PT [facility] INFO [id number]^Haniss lan^Hang RAD EXAM DESC UOBTV^US OB Transvaginal^RIS [facility] WORKSTATION ID [id number] [facility] Anatomical Region Laterality Modality Pelvis, Abdomen Ultrasound 02/17/2024 10:3 9 AM EDT Impressions 02/17/2024 11:20 AM EDT Possible very early intrauterine gestational sac. No significant pelvic pathology. Thank you for letting us participate in the care of this patient. ??If you are a health care provider and have any questions regarding this report, please contact the number below. ??For patients who have questions please contact the health acute care certified nursing assistant that requested your imaging first. ? Electronically signed by: Nelson Alejandro MD, [facility] ([phone]), at 02/17/2024 11:20 AM Narrative 02/17/2024 11:20 AM EDT EXAMINATION: US OB Transvaginal CLINICAL HISTORY: mod / severe RLQ pain rads to back, 5 - 6 wks preg by dates TECHNIQUE: Transvaginal pelvic sonogram COMPARISON: None FINDINGS: There is a mildly heterogenous echo pattern in the uterus. A small fluid collection with hyperechoic rim is seen in the endometrial canal with maximum diameter 7 mm. No heart motion or pole is identified. Both ovaries are visualized with no significant abnormality. No pathological fluid collection is seen. Procedure Note Nelson Alejandro MD - 02/17/2024 EXAMINATION: US OB Transvaginal CLINICAL HISTORY: mod / severe RLQ pain rads to back, 5 - 6 wks preg bydates TECHNIQUE: Transvaginal pelvic sonogram COMPARISON: None FINDINGS: There is a mildly heterogenous echo pattern in the uterus. A small fluid collection with hyperechoic rim is seen in the endometrial canal withmaximum diameter 7 mm. No heart motion or pole is identified. Both ovaries are visualized with no significant abnormality. No pathological fluid collection is seen. IMPRESSION Possible very early intrauterine gestational sac. No significant pelvic pathology. Thank you for letting us participate in the care of this patient. If youare a health care provider and have any questions regarding this report,please contact the number below. For patients who have questions please contactthe health acute care certified nursing assistant that requested your imaging first. Electronically signed by: Nelson Alejandro MD, [facility]([phone]), at 02/17/2024 11:20 AM Hang Beverly MD IMG OB ORDERAB LES documented in this encounter Visit Diagnoses Not on filedocumented in this encounter Care Teams Ethylene Compressor Operator Relationship Specialty Start Date End Date Kenia Lawrence APRN [address] [place] [address] PCP - General Family Medicine 09/29/23 documented as of this encounter
--- OUTSIDE RECORDS SUMMARY | 2024-09-20 11:03 | XMS_ITS | Encounter Summary ---
Author Organization [facility] Address [facility] [place] [address] Care Team Providers Care Compressor Repairer Name Role Phone Kenia Lawrence APRN Primary Care Provider +1- [phone] Encounter Details Date Type Department Care Team (Late st Contact Info) Description 02/17/[address] [facility] [address] [place] [address] Hang Beverly MD [address] [place] [address] Social History Tobacco Use Types Packs/Day Years [...] AM EST Routine Obstetrics [place] [phone] Emili Cabrera MD [facility] [place] [address] 09/26/2024 6:00 PM EST Appointment [facility] [place] [address] 10/16/2024 [place] [address] Dudley Aguilar MD [facility] OBSTETRICS [place] [address] 11/08/2024 10:00 AM EST Hospital Encounter [place] [address] Arrived documented as of this encounter Visit Diagnoses Not on filedocumented in this encounter Care Teams Compressor Repairer Relationship Specialty Start Date End Date Kenia Lawrence APRN [address] [place] [address] PCP - General Family Medicine 09/29/23 documented as of this encounter
--- OUTSIDE RECORDS SUMMARY | 2024-09-20 11:03 | XMS_ITS | Encounter Summary ---
Author Organization [facility] Address [facility] [place] [address] Care Team Providers Care Oil Rigger Name Role Phone None Primary Care Provider Unavailabl e Encounter Details Date Type Department Care Team (Late st Contact Info) Description 09/09/2023 8:40 AM EST Office Visit Cardiology at [address] [address] Shanita Zamudio PA [facility] [place] [address] Hypertension, unspecified type; Cardiac arrest Social History Tobacco Use Types [...] Sign Reading Time Taken Comments Blood Pressure 154/97 09/09/2023 8:59 AM EST Pulse 97 09/09/2023 8:59 AM EST Temperature - - Respiratory Rate - - Oxygen Saturation 99% 09/09/2023 8:59 AM EST Inhaled Oxygen Concentration - - Weight 76.2 kg (167 lb 14.4 oz) 09/09/2023 8:59 AM EST Height 162.6 cm (5' 4) 09/09/2023 8:59 AM EST Body Mass Index 28.82 09/09/2023 8:59 AM EST documented in this encounter Progress Notes * Shanita Zamudio PA - 09/09/2023 8:40 AM EST Images from the original note were not included. Interventional Cardiology Clinic Visit Subjective: HPI: 38 y.o. female with past medical history of VF arrest (witnessed arrest, extensive resuscitation by fiance with bystander CPR and ROSC after prolonged event) 10/2021 due to severe coronary vasospasm s/p [employer] subcutaneous sICD implant 11/12/21, HTN in , tobacco smoker, GERD, borderline personality disorder, PTSD chronic, anxiety, chest pain syndrome. Cardiac cath shows incomplete coronary vasospasm during angiogram. Previously followed by Dr Brasher, Dr Zurita, last seen by me 4 weeks ago. She returns for follow up for BP management and f/up. We increased her amlodipine last visit to 7.5 mg po qd. She continues to have elevated BP in clinic today. She has symptoms of chest heaviness and has burning sensations at her ICD site. No s/sx of infection, no fever or chills. Some episodes of fatigue. She did not have ICD check in interim, no history of events on ICD monitor. From last visit: She saw Dr Brasher [...] hospitalized for IV ABX in the ED ([facility]), symptoms seem to be improving. A couple of weeks ago, she awoke early in the morning with chest discomfort, numbness and tingling all over. Concerned her ICD may have fired. No dyspnea, no syncope, no PND. Patient Active Problem List Diagnosis Chronic hypertension in Encounter for induction of labor Subcutaneous defibrillator implanted 11/12/2021 Overview Note: Pulse generator: [employer] MRI S-ICD Pulse Generator Model A219 Serial Number [id number] Implanted 11/12/21 Ventricular electrode: SQ electrode Model 3501 Bipolar Serial Number [id number] Implanted 11/12/21 Cigarette smoker Coronary artery vasospasm [...] Note: Added automatically from request for surgery [id number] Borderline personality disorder Post-traumatic stress disorder, chronic [...] as needed. fluticasone propionate (Flonase) 50 mcg/actuation [place], Suspension 1 spray by Each Nare route [...] needed. Objective: Vitals: Temp: -- Heart Rate: [97] Resp: -- BP: (154)/(97) SpO2: [99 %] Heart Rate from SpO2: -- Physical [...] was designated as ASA Class V. The [facility] clinical frailty scale is 2: Well. [...] procedure was Emergent. The indication for the clinical laboratory director visit is cardiac arrhythmia. Chest pain symptom [...] multiple defibrillations. Comments: Patient brought to the clinical laboratory director due to recurrent VT/VF requiring mutiple defibrillations. [...] not to perform angiography of the RCA. Essie Jeanie catheter placed via the RIJ with [...] 10/2021 due to severe coronary vasospasm s/p [employer] subcutaneous sICD implant 11/12/21, HTN in [...] side effects such as GEORGE. Plan: 1. Increase norvasc to 10 mg po qhs 2. Reach out to device clinic to check ICD 3. Add imdur 30 mg po qd 4. Smoking cessation 5. F/up 2 months to assess med compliance and symptoms Shanita Zamudio PA-C documented in this encounter Plan of Treatment Upcoming Encounters Date Type Department Care Team (Late st Contact Info) Description 09/21/2024 8:15 AM EST Routine Obstetrics [place] [phone] Emili Cabrera MD [facility] MATERNAL [place] [address] 09/26/2024 6:00 PM EST Appointment [facility] [place] [address] 10/16/2024 Hospital [place] [address] Dudley Aguilar MD [facility] OBSTETRICS [place] [address] 11/08/2024 10:00 AM EST Hospital Encounter Non-[place]vasive [place] [address] Arrived documented as of this encounter Visit Diagnoses Diagnosis Hypertension, unspecified type Cardiac arrest documented in this encounter Care Teams Oil Rigger Relationship Specialty Start Date End Date None None PCP - General 05/30/22 09/28/23 documented as of this encounter
--- OUTSIDE RECORDS SUMMARY | 2024-09-20 11:03 | XMS_ITS | Encounter Summary ---
[place] [address] Care Team Providers Care Information Technology Intern Name Role Phone Kenia Lawrence APRN Primary Care Provider +1- [phone] Reason for Referral * Consultation (Urgent) - Closed Specialty Diagnoses / Procedures Referred By Nellie mckeon Referred To Contact Obstetrics and Gynecology Diagnoses High-risk , first trimester MFM [place]ia Lawrence [place] [address] [place] [address] [facility] Senior Cyber Intelligence Analyst [address] [place] [phone] Referral ID Status Reason Start Date Expiration Date V isits Requested Visits Authorized [id number] Closed Consult, Test & Treat PCP Updated and/or Approved 03/01/2024 03/01/2025 3 3 Encounter Details Date Type Department Care Team (Latest Contact Info) Description 03/01/2024 Transcribe Orders eDH Incoming Referrals [phone] Kenia Lawrence APRN [address] [place], [place] [id number] High-risk , first trimester Social History Tobacco Use Types Packs/Day Years Used Date Smoking Tobacco: Every Day Cigarettes 1 15 Smokeless Tobacco: Never Comments:Smokess 0.5 - 1 pac ks of cigarettes daily x 13 - 14 years. Alcohol Use Standard Drinks/Week Comments Not Currently 0 (1 standard drink = 0.6 oz pur e alcohol) [facility] Utilities Answer Date Recorded In the past 12 months has th e electric, gas, oil, or water company [...] in a fci (including now)? No 03/02/2024 Sex and Gender Information Value Date Recorded Sex Assigned at Female 03/02/2024 7:39 AM EDT Gender Identity Female 03/02/2024 7:39 AM EDT Sexual Orientation Bisexual 03/02/2024 7: 39 AM EDT documented as of this encounter Plan of Treatment Upcoming Encounters Date Type Department Care Team (Late st Contact Info) Description 09/21/2024 8:15 AM EST Routine Obstetrics [place] [address] Emili Cabrera MD [facility] [place] [address] 09/26/2024 6:00 [place] [address] 10/16/2024 [place] [address] Dudley Aguilar MD [facility] [address] [place] [address] 11/08/2024 10:00 AM EST Hospital Encounter [place] [address] Arrived Scheduled Referrals Name Type Priority Associated Diagnoses Orde r Schedule Referral to Ob-Drying Machine Operator Outpatient Referral Urgent High-risk , first trimester Ordered: 03/01/2024 documented as of this encounter Visit Diagnoses Diagnosis High-risk , first trimester documented in this encounter Care Teams Information Technology Intern Relationship Specialty Start Date End Date Kenia Lawrence APRN [address] [place] [address] PCP - General Family Medicine 09/29/23 documented as of this encounter
--- OUTSIDE RECORDS SUMMARY | 2024-09-20 11:03 | XMS_ITS | Encounter Summary ---
Author Organization [facility] [place] [address] Care Team Providers Care Show Dog Trainer Name Role Phone Melinda Kenia Marilin CAMPBELL Primary Care Provider +1- [phone] Encounter Details Date Type Department Care Team (Latest Contact Info) Description 04/21/2024 Travel Social History Tobacco Use Types Packs/Day Years Used Date Smoking Tobacco: Every Day Cigarettes 1 15 Smokeless Tobacco: Never Comments:Smokess 0.5 - 1 pac ks of cigarettes daily x 13 - 14 years. Alcohol Use Standard Drinks/Week Comments Not Currently 0 (1 standard drink = 0.6 oz pur e alcohol) [facility] Utilities Answer Date Recorded In the past 12 months has e [employer], gas, oil, or water [employer] threatened to shut off services in your [...] AM EST Routine Obstetrics [place] [address] Emili Cabrera MD [facility] [place] [address] 09/26/2024 6:00 PM EST Appointment [facility] [place] [address] 10/16/2024 Hospital Encounter [place] [address] Dudley Aguilar MD [facility] DR OBSTET[place] [address] 11/08/2024 10:00 AM EST Hospital Encounter Non-Invasive [place] [address] Arrived documented as of this encounter Visit Diagnoses Not on filedocumented in this encounter Care Teams Show Dog Trainer Relationship Specialty Start Date End Date Kenia Lawrence APRN [address] [place] [address] PCP - General Family Medicine 09/29/23 documented as of this encounter
--- OUTSIDE RECORDS SUMMARY | 2024-09-20 11:03 | XMS_ITS | Encounter Summary ---
Author Organization [facility] [place] [address] Care Team Providers Care Carpenter Railcar Name Role Phone Kenia Lawrence APRN Primary Care Provider +1- [phone] Encounter Details Date Type Department Care Team (Late st Contact Info) Description 12/02/2023 Interpretation Only [address] [phone] Nirav Reynoso MD [address] [place] [address] Social History Tobacco Use Types Packs/Day Years [...] AM EST Routine Obstetrics [place] [address] Emili Cabrera MD [facility] [place] [address] 09/26/2024 6:00 PM EST Appointment [facility] [place] [phone] 10/16/2024 Hospital [place] [address] Dudley Aguilar MD [facility] DR [place]ST[place] [address] 11/08/2024 10:00 AM EST Hospital Encounter Non-[place] [phone] Arrived documented as of this encounter Procedures Procedure Name Priority Date/Time Associated Diagnosis Comments XR CHEST ONE VIEW STAT 12/02/2023 10: 02 AM EST documented in this encounter Results * XR Chest One View (12/02/2023 10:02 AM EST) PT CLASS E RAD ADMITDTTM [id number] RAD PT RAD INFO [id number]^Potter^ Nirav RAD EXAM DESC XCXR1^XR Chest 1 View^RIS RAD Anatomical Region Laterality Modality Chest N/A Radiographic Ewa ging 12/02/2023 9:55 AM EST Impressions 12/02/2023 10:10 AM EST No acute cardiopulmonary changes. Stable position of AICD. Thank you for letting us participate in the care of this patient. ??If you are a health care provider and have any questions regarding this report, please contact the number below. ??For patients who have questions please contact the health healthcare educator that requested your imaging first. ? Electronically signed by: Alok Kebede MD, [facility] ([phone]), at 12/02/2023 10:10 AM Narrative 12/02/2023 10:10 AM EST EXAMINATION: XR Chest 1 View CLINICAL HISTORY: SOB TECHNIQUE: AP portable chest. COMPARISON: PA and lateral chest 10/01/2023. FINDINGS: An AICD with a single lead is unchanged in position from prior studies. The heart is normal in size. The lungs are clear. Specifically, no evidence of pulmonary edema, pneumonia, pleural effusion or pneumothorax. Procedure Note Alok Kebede MD - 12/02/2023 EXAMINATION: XR Chest 1 View CLINICAL HISTORY: SOB TECHNIQUE: AP portable chest. COMPARISON: PA and lateral chest 10/01/2023. FINDINGS: An AICD with a single lead is unchanged in position from prior studies.The heart is normal in size. The lungs are clear. Specifically, no evidenceof pulmonary edema, pneumonia, pleural effusion or pneumothorax. IMPRESSION No acute cardiopulmonary changes. Stable position of AICD. Thank you for letting us participate in the care of this patient. If youare a health care provider and have any questions regarding this report,please contact the number below. For patients who have questions please contactthe health healthcare educator that requested your imaging first. Electronically signed by: Alok Kebede MD, [facility]([phone]), at 12/02/2023 10:10 AM Nirav Reynoso MD IMG DX ORDERABLES documented in this encounter Visit Diagnoses Not on filedocumented in this encounter Care Teams Carpenter Railcar Relationship Specialty Start Date End Date Kenia Lawrence, SERVICE RESTORER EMERGENCY [address] [place] [address] PCP - General Family Medicine 09/29/23 documented as of this encounter
--- OUTSIDE RECORDS SUMMARY | 2024-09-20 11:03 | XMS_ITS | Encounter Summary ---
Author Organization [facility] [place] [address] Care Team Providers Care Sales Operations Lead Name Role Phone None Primary Care Provider Unavailabl e Encounter Details Date Type Department Care Team (Latest Contact Info) Description 08/12/2023 Travel Social History Tobacco Use Types Packs/Day [...] AM EST Routine Obstetrics [place] [address] Emili Cabrera MD [facility] [place] [address] 09/26/2024 6:00 PM EST Appointment [facility] [place] [address] 10/16/2024 Hospital [place] [address] Dudley Aguilar MD [facility] DR OBSTETRICS [place] [address] 11/08/2024 10:00 AM EST Hospital Encounter [place] [address] Arrived documented as of this encounter Visit Diagnoses Not on filedocumented in this encounter Care Teams Sales Operations Lead Relationship Specialty Start Date End Date None None PCP - General 05/30/22 09/28/23 documented as of this encounter
--- OUTSIDE RECORDS SUMMARY | 2024-09-20 11:03 | XMS_ITS | Encounter Summary ---
Author Organization [facility] [place] [address] Care Team Providers Care Insecticide Sprayer Name Role Phone MelindaKenia ford ADRIAN Primary Care Provider +1- [phone] Encounter Details Date Type Department Care Team (Late st Contact Info) Description 04/15/2024 Interpretation Only [address] [phone] Danielle Ricci MD [address] [place] [address] Social History Tobacco Use Types Packs/Day Years Used Date Smoking Tobacco: Every Day Cigarettes 1 15 Smokeless Tobacco: Never Comments:Smokess 0.5 - 1 pac ks of cigarettes daily x 13 - 14 years. Alcohol Use Standard Drinks/Week Comments Not Currently 0 (1 standard drink = 0.6 oz pur e alcohol) [facility] Utilities Answer Date Recorded In the past 12 months has [employer] gas, oil, or water [employer] threatened to shut off services in your [...] in a halfway (including now)? No 03/02/2024 Estimated Date of [...] AM EST Routine Obstetrics [place] [address] Emili Cabrera MD [facility] MATERNAL [place] [address] 09/26/2024 6:00 PM EST Appointment [facility] [place] [phone] 10/16/2024 Hospital [place] [address] Dudley Aguilar MD [facility] OBSTETRICS [place] [address] 11/08/2024 10:00 AM EST Hospital Encounter Non-Invasive [place] [address] Arrived documented as of this encounter Procedures Procedure Name Priority Date/Time Associated Diagnosis Comments US OB LIMITED Routine 04/15/2024 1:14 PM EDT documented in this encounter Results * US OB Limited (04/15/2024 1:14 PM EDT) PT CLASS O RAD ADMITDTTM [id number] [facility] PT [facility] INFO [id number]^[place] r^Danielle RAD EXAM DESC UOBLIM^US OB Limited^RIS [facility] WORKSTATION ID [id number] RAD Anatomical Region Laterality Modality Pelvis, Abdomen Ultrasound 04/15/2024 12:3 6 PM EDT Impressions 04/15/2024 1:40 PM EDT Normal examination. Thank you for letting us participate in the care of this patient. ??If you are a health care provider and have any questions regarding this report, please contact the number below. ??For patients who have questions please contact the health childcare center director that requested your imaging first. ? Narrative 04/15/2024 1:40 PM EDT EXAMINATION: US OB Limited CLINICAL HISTORY: Patient has cardiac hx and is a tobacco user. Assess growth. COMPARISON: February 26, 2024 FINDINGS: There is a single living intrauterine gestation. biometry: BPD: ??2.39cm. ??14W ??1D HC: ??9.56cm. ??14W ??3D AC: ??7.2cm. ??13W ??6D FL: ??1.33cm. ??14W ??0D Estimated weight = ??86g = > 75% for dates by LMP calculated from NAZIA of October 13, 2024. Procedure Note Luis F Valladares MD - 04/15/2024 EXAMINATION: US OB Limited CLINICAL HISTORY: Patient has cardiac hx and is a tobacco user. Assessfetal growth. COMPARISON: February 26, 2024 FINDINGS: There is a single living intrauterine gestation. biometry: BPD: 2.39cm. 14W 1D HC: 9.56cm. 14W 3D AC: 7.2cm. 13W 6D FL: 1.33cm. 14W 0D Estimated weight = 86g = > 75% for dates by LMP calculated from EDDof October 13, 2024. IMPRESSION Normal examination. Thank you for letting us participate in the care of this patient. If youare a health care provider and have any questions regarding this report,please contact the number below. For patients who have questions please contactthe health childcare center director that requested your imaging first. Danielle Ricci MD IMG OB ORDERABLES documented in this encounter Visit Diagnoses Not on filedocumented in this encounter Care Teams Insecticide Sprayer Relationship Specialty Start Date End Date Kenia Lawrence APRN [address] [place] [address] PCP - General Family Medicine 09/29/23 documented as of this encounter
--- OUTSIDE RECORDS SUMMARY | 2024-09-20 11:03 | XMS_ITS | Encounter Summary ---
Author Organization [facility] Address [facility] [place] [address] Care Team Providers Care Electrical Engineering Manager Name Role Phone Kenia Lawrence APRN Primary Care Provider +1- [phone] Reason for Visit * Reason Comments Initial Visit * Consultation (Urgent) - Closed Specialty Diagnoses / Procedures Referred By Contbill t Referred To Contact Obstetrics and Gynecology Diagnoses High-risk , first trimester [facility] Kenia Lawrence [place] [address] [place] [address] [facility] Felt Hat Mellowing Machine Operator [address] [place] [address] Referral ID Status Reason Start Date Expiration Date V isits Requested Visits Authorized [id number] Closed Consult, Test & Treat PCP Updated and/or Approved 03/01/2024 03/01/2025 3 3 Encounter Details Date Type Department Care Team (Late st Contact Info) Description 03/02/2024 8:15 AM EDT Initial Obstetrics [place] [address] Yudi Oliveira MD [facility] DR OBSTETRICS [place] [address] GA: 7w3d Social History Tobacco Use Types Packs/Day Years [...] the past 12 months has th e [employer], gas, oil, or water company threatened to [...] No 03/02/2024 Housing Stability Vital Sign Answer Loagn e Recorded In the last 12 months, [...] in a assisted (including now)? No 03/02/2024 Estimated Date of [...] Sign Reading Time Taken Comments Blood Pressure 131/85 03/02/2024 7:00 AM EDT Pulse 85 03/02/2024 7:00 AM EDT Temperature 36.6 ??C (97.9 ??F) 03/02/2024 7:00 AM ED T Respiratory Rate 18 03/02/2024 7:00 AM EDT Oxygen Saturation 100% 03/02/2024 7:00 AM EDT Inhaled Oxygen Concentration - - Weight 80 kg (176 lb 4.8 oz) 03/02/2024 7:54 AM EDT Height - - Body Mass Index 30.26 09/29/2023 9:30 AM EST documented in this encounter Progress Notes * Ilene Reeves CCMA - 03/02/2024 8:15 AM EDT The Benefits of pamphlet and Book were given to the patient. The importanceof the materials was discussed and the patient was encouraged to read the information and direct questions to the provider. * Yudi Oliveira MD - 03/02/2024 8:15 AM EDT Ms. Luque is well known to the [facility] team. She had a witnessed cardiac arrest in October 2021 with ROSC after extensive resuscitation. The etiology is presumed to be profound vaspospasm. There did notappear to have been myocardial damage nor cardiomyopathy. 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 Concerns was raised for hypoxic encephalopathy, but she survived neurologically intactalthough she does admit to poor concentration. She has an implanted defibrillator. She does take nitroglycerine for chest pain. She became immediately after the above described events, and delivered uneventfully in July 2022. She denies cardiac events since the delivery of her child This is an unintended ; Ms. Luque was not using contraception. Her partner had been incarcerated until early December 2023; she became at the end of December. She is conflicted as to whether or not she wants to continue the . This was a significant issue at the beginning of her last as well. We again reviewed the fact that not being is always safer than being . I will facilitate a consultation with her terra cotta roofer helper, Dr. Ej Zurita. I informed Ms. Luque that not matter what she opts for moving forward, we will support her in that choice. BP 131/85 Pulse 85 Temp 36.6 ??C (97.9 ??F) (Temporal) Resp 18 Wt 80 kg (176 lb 4.8 oz) LMP (LMP Unknown) SpO2 100% BMI 30.26 kg/m?? Physical Exam General: alert, well appearing, in no apparent distress, oriented to person, place and time, anxious, appears depressed HEENT: normocephalic, atraumatic Extremities: no edema Neurologic:alert, oriented, normal speech, no focal findings or movement disorder noted Psychiatric: Affect is Flat. Viability/dating US performed 02/26/24 due to uncertain LMP: CRL 6w5d, c/w NAZIA 10/16/24 labs were ordered today. Vaginal cultures obtained due to concern for increased discharge.Up to date on Pap smear. Ms. Luque will continue to think about how she wants to move forward in this . Plan for repeat appointment in two weeks. Yudi OLIVEIRA MD documented in this encounter Plan of Treatment Upcoming Encounters Date Type Department Care Team (Late st Contact Info) Description 09/21/2024 8:15 AM EST Routine Obstetrics [place] [address] Emili Cabrera MD [facility] MATERNAL [place] [address] 09/26/2024 6:00 PM EST Appointment [facility] [place] [phone] 10/16/2024 [place] [address] Dudley Aguilar MD [facility] DR OBSTETRICS [place] [address] 11/08/2024 10:00 AM EST Hospital Encounter [place] [phone] Arrived documented as of this encounter Procedures Procedure Name Priority Date/Time Associated Diagnosis Comments VAGINITIS/OSIS PANEL ([facility]/APD/NLH/CGP) Routine 03/02/2024 8:15 AM EDT Chronic hypertension in GC/CHLAMYDIA Routine 03/02/2024 8:15 AM EDT Chronic hypertension in URINE CULTURE Routine 03/02/2024 8:15 AM EDT Chronic hypertension in documented in this encounter Results * Hepatitis C Antibody (04/23/2024 8:04 AM EDT) Hepatitis C Antibody Negative Negative [facility] Blood 04/23/2024 8:04 AM EDT 04/23/2024 8:11 AM EDT Narrative Resulting Agency Comment Spec In Lab E Luz Oliveira MD CHEMISTRY ORDERAB LES [facility] [place] [address] * (ABNORMAL) Vaginitis/osis Panel ([facility]/APD/NLH/CGP) (03/02/2024 8:15 AM EDT) Bacterial vaginosis Negative Negative [facility] Natalia sp. Group Positive(A) Negative [facility] Natalia Glabrata Negative Negative [facility] Trichomonas vaginalis Negative Negative [facility] BV/CV/TV Interp Results from [...] and BV Assay were tested on the [employer]-Solution Instrument. These assays are cleared by the [place] Food & Drug Administration for clinical testing. [facility] Vaginal 03/02/2024 8:15 AM EDT 03/02/2024 1:00 PM EDT Narrative Resulting Agency Comment Spec In Lab E Luz Oliveira MD MICROBIOLOGY - [facility] ORDERABLES [facility] [place] [address] * GC/Chlamydia Vaginal (03/02/2024 8:15 AM EDT) GC Gene Amp Negative Negative [facility] Comment: Eye specimens are not an FDA-cleared source for this testing. The performance of this assay with eye specimens has been validated in-house. GC Source Vaginal [facility] Chlamydia Gene Amp Negative Negative [facility] Comment: Eye specimens are not an FDA-cleared source for this testing. The performance of this assay with eye specimens has been validated in-house. Chlm Source Vaginal [facility] Vaginal 03/02/2024 8:15 AM EDT 03/02/2024 1:00 PM EDT Narrative Resulting Agency Comment Spec In Lab E Luz Oliveira MD MICROBIOLOGY - GE NERAL ORDERABLES Performing Organization Address City/[facility]/ZIP Co de Phone Number [facility] [place] [address] * (ABNORMAL) Urine culture Clean Catch Urine (03/02/2024 8:15 AM EDT) Urine Culture 10,000-49,000 cfu/ml mixed mucosal al One colony of Gram Negative organisms Note: Culture shows multiple bacterial species suggesting mucosal contamination. (A) [facility] Clean Catch Urine 03/02/2024 8:15 AM EDT 03/02/2024 12:59 PM EDT Narrative Resulting Agency Comment Spec In Lab E Luz Oliveira MD MICROBIOLOGY - GE NERAL ORDERABLES Performing Organization Address City/[facility]/ZIP Co de Phone Number [facility] [place] [address] documented in this encounter Visit Diagnoses Diagnosis Chronic hypertension in Benign essential hypertension complicating , childbirth, and the puerperium, unspecified as to episode of care documented in this encounter Care Teams Electrical Engineering Manager Relationship Specialty Start Date End Date Kenia Lawrence APRN [address] [place] [id number] PCP - General Family Medicine 09/29/23 documented as of this encounter
--- OUTSIDE RECORDS SUMMARY | 2024-09-20 11:04 | XMS_ITS | Encounter Summary ---
Author Organization [facility] [place] [address] Care Team Providers Care Aircraft Hydraulic Equipment Mechanic Name Role Phone None Primary Care Provider Unavailabl e Encounter Details Date Type Department Care Team (Late st Contact Info) Description 10/20/2022 8:00 AM EST Ancillary Procedure Radiology Xray at [address] [place] [address] Social History Tobacco Use Types Packs/Day Years [...] AM EST Routine Obstetrics [place] [address] Emili Cabrera MD [facility] [place] [address] 09/26/2024 6:00 PM EST Appointment [facility] [place] [address] 10/16/2024 Hospital Encounter Birthing [facility] [place] [address] Dudley Aguilar MD [facility] [address] OBSTET[place]ICS [place] [address] 11/08/2024 10:00 AM EST Hospital Encounter Non-Invasive Cardiology Lab [facility] [place] [address] Arrived documented as of this encounter Procedures Procedure Name Priority Date/Time Associated Diagnosis Comments XR CHEST PA AND LATERAL STAT 10/20/2022 8:21 AM EST documented in this encounter Results * XR Chest PA & Lateral (Generic) (10/20/2022 8:21 AM EST) Anatomical Region Laterality Modality Chest N/A Digital Radiogra phy Impressions 10/20/2022 8:26 AM EST Stable interval examination, no evidence of acute cardiopulmonary disease Thank you for letting us participate in the care of this patient. ??If you are a health care provider and have any questions regarding this report, please contact the number below. ??For patients who have questions please contact the health children's zoo caretaker that requested your imaging first. ? Narrative 10/20/2022 8:26 AM EST EXAMINATION: XR CHEST PA AND LATERAL (GENERIC) CLINICAL HISTORY: chest pain TECHNIQUE: PA and lateral views of the chest COMPARISON: 08/25/2022, 07/02/2022 FINDINGS: No change in appearance or alignment of the left-sided AICD with central lead. Lungs are well expanded and clear. No pleural effusion or pneumothorax. Cardiac and mediastinal contours are normal. No central pulmonary vascular congestion or interstitial edema. Bones unremarkable. Procedure Note Dinh Becerril MD - 10/20/2022 EXAMINATION: XR CHEST PA AND LATERAL (GENERIC) CLINICAL HISTORY: chest pain TECHNIQUE: PA and lateral views of the chest COMPARISON: 08/25/2022, 07/02/2022 FINDINGS: No change in appearance or alignment of the left-sided AICD with centrallead. Lungs are well expanded and clear. No pleural effusion or pneumothorax. Cardiac and mediastinal contours are normal. No central pulmonaryvascular congestion or interstitial edema. Bones unremarkable. IMPRESSION Stable interval examination, no evidence of acute cardiopulmonarydisease Thank you for letting us participate in the care of this patient. If youare a health care provider and have any questions regarding this report,please contact the number below. For patients who have questions please contactthe health children's zoo caretaker that requested your imaging first. Casimiro Samson MD IMG DX ORDERABLES documented in this encounter Visit Diagnoses Not on filedocumented in this encounter Additional Health Concerns Infection Onset Date Last Indicated Resolved Time Rule Out COVID-19 10/20/2022 10/20/2022 10/20/2022 9:20 AM EST documented as of this encounter Care Teams Aircraft Hydraulic Equipment Mechanic Relationship Specialty Start Date End Date None None PCP - General 05/30/22 09/28/23 documented as of this encounter
--- OUTSIDE RECORDS SUMMARY | 2024-09-20 11:04 | XMS_ITS | Encounter Summary ---
Author Organization [facility] [place] [address] Care Team Providers Care Pattern Repair Person Name Role Phone None Primary Care Provider Unavailabl e Encounter Details Date Type Department Care Team (Late st Contact Info) Description 03/29/2023 Interpretation Only [address] [phone] Yumiko Álvarez MD [address] [place] [id number] Social History Tobacco Use Types Packs/Day Years [...] AM EST Routine Obstetrics [place] [address] Emili Cabrera MD [facility] [address] 09/26/2024 6:00 PM EST Appointment [facility] [place] [address] 10/16/2024 [place] [address] Dudley Aguilar MD [facility] DR OBSTETRICS AND GYNECOLOGY [address] 11/08/2024 10:00 AM EST Hospital Encounter [place] [address] Arrived documented as of this encounter Procedures Procedure Name Priority Date/Time Associated Diagnosis Comments CT CERVICAL SPINE WO CONTRAST STAT 03/29/2023 10:06 AM EDT documented in this encounter Results * CT Cervical Spine wo Contrast (03/29/2023 10:06 AM EDT) PT CLASS E RAD ADMITDTTM RAD PT RAD INFO [id number]^M ARTINS^YUMIKO RAD EXAM DESC CTCSPI^CT C-SPINE WO CNTRST^RIS RAD Anatomical Region Laterality Modality C-spine Computed Tomogra phy Impressions 03/29/2023 10:22 AM EDT No significant cervical spinal abnormalities identified. Consider MRI for further evaluation. I have personally reviewed the image(s) and the resident's interpretation and agree with the findings, Adan Jamil at 03/29/2023 10:22 AM Thank you for letting us participate in the care of this patient. ??If you are a health care provider and have any questions regarding this report, please contact the number below. ??For patients who have questions please contact the health director of medicare that requested your imaging first. ? Narrative 03/29/2023 10:22 AM EDT EXAMINATION: CT C-SPINE WO CNTRST CLINICAL HISTORY: moderately severe, burning pain left neck to forearm, no trauma (chiropractic manipulation) TECHNIQUE: CT cervical spine performed without intravenous contrast administration. COMPARISON: CT neck 12/07/2022 FINDINGS: Alignment is near-anatomic. Disc spaces and vertebral body heights are well-maintained. Patent neural foramen. Facets are appropriately aligned. No significant canal or foraminal narrowing. No acute fracture. No prevertebral soft tissue swelling. No neck masses. Left TMJ osteoarthropathy. Procedure Note Adan Jamil MD - 03/29/2023 EXAMINATION: CT C-SPINE WO CNTRST CLINICAL HISTORY: moderately severe, burning pain left neck to forearm,no trauma (chiropractic manipulation) TECHNIQUE: CT cervical spine performed without intravenous contrast administration. COMPARISON: CT neck 12/07/2022 FINDINGS: Alignment is near-anatomic. Disc spaces and vertebral body heights are well-maintained. Patent neural foramen. Facets are appropriately aligned.No significant canal or foraminal narrowing. No acute fracture. Noprevertebral soft tissue swelling. No neck masses. Left TMJ osteoarthropathy. IMPRESSION No significant cervical spinal abnormalities identified. Consider MRIfor further evaluation. I have personally reviewed the image(s) and the resident's interpretationand agree with the findings, Adan Jamil at 03/29/2023 10:22 AM Thank you for letting us participate in the care of this patient. If youare a health care provider and have any questions regarding this report,please contact the number below. For patients who have questions please contactthe health director of medicare that requested your imaging first. Yumiko Álvarez MD IMG CT ORDERABLES documented in this encounter Visit Diagnoses Not on filedocumented in this encounter Care Teams Pattern Repair Person Relationship Specialty Start Date End Date None None PCP - General 05/30/22 09/28/23 documented as of this encounter
--- OUTSIDE RECORDS SUMMARY | 2024-09-20 11:04 | XMS_ITS | Encounter Summary ---
Author Organization [facility] Address [facility] [place] [address] Care Team Providers Care Carpenter Foreman Name Role Phone None Primary Care Provider Unavailabl e Encounter Details Date Type Department Care Team (Late st Contact Info) Description 04/18/2023 10:30 AM EDT Office Visit Cardiology at [address] [address] Tess Roche APRN [facility] [place] [address] Smoking Social History Tobacco Use Types Packs/Day Years [...] Sign Reading Time Taken Comments Blood Pressure 141/90 04/18/2023 11:07 AM EDT Pulse 89 04/18/2023 11:07 AM EDT Temperature - - Respiratory Rate - - Oxygen Saturation 99% 04/18/2023 11:07 AM EDT Inhaled Oxygen Concentration - - Weight 69.4 kg (153 lb) 04/18/2023 11:07 AM EDT Height 162.6 cm (5' 4) 04/18/2023 11:07 AM EDT Body Mass Index 26.26 04/18/2023 11:07 AM EDT documented in this encounter Patient Instructions * Patient Instructions* Tess Roche APRN - 04/18/2023 10:30 AM EDT Quit smoking! We discussed what happens in your body as it reacts to cigarette smoking and why you have an ICD. Distract yourself when your smoking cravings start. I sent another round of prescriptions for Nicotine patches to your pharmacy.. Your incision looks well healed and much improved! Your device is stable in its location on your left side. It may take time for the nerves to heal, it's common to feel skin sensations from the incision. We will follow up in mid June. documented in this encounter Progress Notes * Tess Roche APRN - 04/18/2023 10:30 AM EDT Images from the original note were not included. Cardiac Electrophysiology Clinic Visit Subjective: Patient ID: Aniya Luque is a 37 y.o. female. CC: Follow up of S-ICD sternal incision HPI: 37 y.o. 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 She presented to the clinic 03/18/23 with complaints of itching and redness at the distal end of hersternal incision. Bactrim-DS was prescribed twice daily for 6 days. She was also finding it difficult to quit smoking, but was willing to try the Nicotine patch again. Today she reports that the bubbling has gone, but she thinks it still looks a little dented in. She completed all the doses of antibiotics . She also reports concern for her device moving in her pocket of her left chest/flank after moving heavy boxes. She complained of occasional twinges and painful sensations over her device pocket site. She applied the nicotine patches, was only able to obtain 21 mg patches from the pharmacy for couple of weeks, she said they would not dispense the 14 mg or 7 mg patches. She thought the nicotine patches helped and she was not smoking while wearing them. Since she has not been able to obtain the patches, she feels the need to smoke first thing in the morning, and has been smoking more than 10 ciga rettes/day. She is unable to follow-up with a PCP as she has no PCP. She is on the waiting list at 2 different PCPs and they have not called her. She uses the emergency room for her routine care. She is here with her daughter. Patient Active Problem List Diagnosis Chronic hypertension in Encounter for induction of labor Subcutaneous defibrillator implanted 11/12/2021 Overview Note: Pulse generator: Liquid MRI S-ICD Pulse Generator Model A219 Serial Number [id number] Implanted 11/12/21 Ventricular electrode: SQ electrode Model 3501 Bipolar Serial Number [id number] Implanted 11/12/21 Cigarette smoker Coronary artery vasospasm [...] Note: Added automatically from request for surgery [id number] Borderline personality disorder Post-traumatic stress disorder, chronic [...] Tachycardia Recurrent major depressive episodes, moderate ROS: Constitutional: - fatigue, - fever, - chills, - insomnia Respiratory: - shortness of breath, - cough, - apnea, - wheezing Cardiovascular: - chest pain, - palpitations, - unusual rates Gastrointestinal: - nausea, - vomiting, - abdominal pain, - diarrhea Neurological: - lightheadedness, - dizziness, - syncope, - weakness Endocrine: - hot spells, -cold spells. Psychiatric: - anxious Family History: Family History [...] as needed. fluticasone propionate (Flonase) 50 mcg/actuation [place], Suspension 1 spray by Each Nare route [...] needed. Objective: Vitals: Temp: -- Heart Rate: [89] Resp: -- BP: (141)/(90) SpO2: [99 %] Heart Rate from SpO2: -- Physical Exam: General- No acute distress, sitting comfortably in exam room chair HEENT- Head atraumatic, normocephalic Skin- Pocket incision is well healed. No evidence of erosion, infection, or need of revision. Sternal incision: Left flank device pocket: incision well healed, device mobile in pocket, but not excessively. No evidence of need for revision. Neck- No JVD noted Cardiovascular- S1/S2 regular rate and rhythm. No murmur, rub or gallop Lungs- Clear to auscultation bilaterally Extremities- Pulses equal bilaterally. No edema noted Neuro- A&Ox3 Assessment and Plan: 37 y.o. 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 Sternal incision of subcutaneous ICD ead is healed, no evidence of infection after course of antibiotics. Left chest subcutaneous ICD pocket incision is well-healed with no evidence of infection or need for revision. No excessive movement in pocket . Discussed ongoing healing and nerve sensations that is sometimes present post implant. Device follow-up will be in 6 months. Again, stressed the important need to quit smoking. Re-prescribed nicotine patches, with a longer 21 mg daily patch interval for 6 weeks then stepdown to 14 mg for 2 weeks and then another step down to 7 mg for 2 weeks. This is per up-to-date recommendations for treatment of tobacco cessation of more than 10 cigarettes/day . She needs to get a PCP for follow-up. Will recommend follow-up with general cardiology also for hypertension, as last note in October theplan from Dr. Kaylen Brasher was for her to return to clinic in 6 months. Plan: 1. Subcutaneous ICD check every 6 months, and remote monitoring in between every 3 months. 2. Nicotine patch for smoking cessation. 3. Follow-up in general cardiology. 4. Follow-up with PCP when available. Tess Roche APRN There are no Patient Instructions on file for this visit. documented in this encounter Plan of Treatment Upcoming Encounters Date Type Department Care Team (Late st Contact Info) Description 09/21/2024 8:15 AM EST Routine Obstetrics [place] [address] Emili Cabrera MD [facility] MATERNAL [place] [address] 09/26/2024 6:00 PM EST Appointment [facility] [place] [address] 10/16/2024 [place] [address] Dudley Aguilar MD [facility] OBSTETRICS [place] [address] 11/08/2024 10:00 AM EST Hospital Encounter Non-Invasive Cardiology [place] [address] Arrived documented as of this encounter Visit Diagnoses Diagnosis Smoking Tobacco use disorder documented in this encounter Care Teams Carpenter Foreman Relationship Specialty Start Date End Date None None PCP - General 05/30/22 09/28/23 documented as of this encounter
--- OUTSIDE RECORDS SUMMARY | 2024-09-20 11:04 | XMS_ITS | Encounter Summary ---
Author Organization [facility] Address [facility] [place] [address] Care Team Providers Care Fraternity House Cook Name Role Phone None Primary Care Provider Unavailabl e Encounter Details Date Type Department Care Team (Late st Contact Info) Description 08/25/2022 Interpretation Only [address] [phone] Eleonora Pimentel Jr., DO [address] [place] [address] Social History Tobacco Use Types Packs/Day Years [...] AM EST Routine Obstetrics [place] [address] Emili Cabrera MD [facility] MATERNAL [place] [address] 09/26/2024 6:[address] [facility] [place] [address] 10/16/[address] [facility] [place] [address] Dudley Aguilar MD [facility] DR OBSTETRICS AND GYNECOLOGY [place] [id number] 11/08/2024 10:00 AM EST Hospital Encounter [place] [address] Arrived documented as of this encounter Procedures Procedure Name Priority Date/Time Associated Diagnosis Comments XR CHEST PA AND LATERAL STAT 08/25/2022 7:07 AM EST documented in this encounter Results * XR Chest PA & Lateral (Generic) (08/25/2022 7:07 AM EST) PT CLASS E RAD ADMITDTTM RAD PT RAD INFO [id number]^B ROWN^ELEONORA^ A DH RAD EXAM DESC XCXR2^XR CHEST 2 VIEWS^RIS RAD Anatomical Region Laterality Modality Chest N/A Radiographic Ewa ging Impressions 08/25/2022 7:10 AM EST No acute cardiopulmonary abnormality. Thank you for letting us participate in the care of this patient. ??If you are a health care provider and have any questions regarding this report, please contact the number below. ??For patients who have questions please contact the health childcare center director that requested your imaging first. ? Electronically signed by: Kimberley Pichardo MD[facility] ([phone]), at 08/25/2022 7:10 AM Narrative 08/25/2022 7:10 AM EST EXAMINATION: XR CHEST 2 VIEWS CLINICAL HISTORY: pain in right side of chest on inspiration TECHNIQUE: PA and lateral views of the chest. COMPARISON: Chest x-ray 07/19/2022. FINDINGS: Left chest AICD in unchanged position with single intact lead oriented along the sternum. Trachea, mainstem bronchi, cardiomediastinal silhouette, charline, and pulmonary vascular markings are within normal limits. No focal airspace opacity, pleural effusion or pneumothorax. Unremarkable osseous structures and upper abdomen. Procedure Note Cecelia Pichardo MD - 08/25/2022 EXAMINATION: XR CHEST 2 VIEWS CLINICAL HISTORY: pain in right side of chest on inspiration TECHNIQUE: PA and lateral views of the chest. COMPARISON: Chest x-ray 07/19/2022. FINDINGS: Left chest AICD in unchanged position with single intact lead orientedalong the sternum. Trachea, mainstem bronchi, cardiomediastinal silhouette, charline, andpulmonary vascular markings are within normal limits. No focal airspace opacity,pleural effusion or pneumothorax. Unremarkable osseous structures and upperabdomen. IMPRESSION No acute cardiopulmonary abnormality. Thank you for letting us participate in the care of this patient. If youare a health care provider and have any questions regarding this report,please contact the number below. For patients who have questions please contactthe health childcare center director that requested your imaging first. Electronically signed by: Kimberley Pichardo MD[facility]([phone]), at 08/25/2022 7:10 AM Eleonora Pimentel Jr., DO IMG DX ORDERABLES documented in this encounter Visit Diagnoses Not on filedocumented in this encounter Care Teams Fraternity House Cook Relationship Specialty Start Date End Date None None PCP - General 05/30/22 09/28/23 documented as of this encounter
--- OUTSIDE RECORDS SUMMARY | 2024-09-20 11:04 | XMS_ITS | Encounter Summary ---
Author Organization [facility] [place] [address] Care Team Providers Care Grain Blender Name Role Phone None Primary Care Provider Unavailabl e Encounter Details Date Type Department Care Team (Latest Contact Info) Description 10/31/2022 Travel Social History Tobacco Use Types Packs/Day [...] AM EST Routine Obstetrics [place] [address] Emili Cabrera MD [facility] [place] [address] 09/26/2024 6:00 PM EST Appointment [facility] [place] [address] 10/16/2024 Hospital Encounter [place] [address] Dudley Aguilar MD [facility] DR [place] [address] 11/08/2024 10:00 AM EST Hospital Encounter Non-Invasive [place] [address] Arrived documented as of this encounter Visit Diagnoses Not on filedocumented in this encounter Care Teams Grain Blender Relationship Specialty Start Date End Date None None PCP - General 05/30/22 09/28/23 documented as of this encounter
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
--- OUTSIDE RECORDS SUMMARY | 2024-09-20 11:04 | XMS_ITS | Encounter Summary ---
Author Organization [facility] Address [facility] [place] [address] Care Team Providers Care Master In Chancery Name Role Phone None Primary Care Provider Unavailabl e Encounter Details Date Type Department Care Team (Late st Contact Info) Description 03/13/2023 2:00 PM EDT Office Visit Cardiology at [address] [phone] Tess Roche APRN [facility] [address] Smoking; Skin abnormality Social History Tobacco Use Types Packs/Day Years [...] Sign Reading Time Taken Comments Blood Pressure 141/102 03/13/2023 2:25 PM EDT Hasn't taken BP meds today. Pulse 67 03/13/2023 2:25 PM EDT Temperature - - Respiratory Rate - - Oxygen Saturation 100% 03/13/2023 2:2 5 PM EDT Inhaled Oxygen Concentration - - Weight 70.4 kg (155 lb 3.2 oz) 03/13/2023 2:25 PM EDT Height 162.6 cm (5' 4) 03/13/2023 2:25 PM EDT Body Mass Index 26.64 03/13/2023 2:25 PM EDT documented in this encounter Patient Instructions * Patient Instructions* Tess Roche APRN - 03/13/2023 2:00 PM EDT Please start Bactrim DS (double strength) 1 tablet twice daily for skin infection. We will follow up in about 4 weeks. Please stop smoking! Smoking is very dangerous for your heart, as it causes your blood vessels to constrict (narrow) andlimits the amount of blood flow which carries oxygen and nutrients to your heart and organs. Lack of blood flow is what can cause the abnormal, deadly heart rhythms (as was seen in the Primer Assembler during your cardiac catheterization) and the reason why you have the ICD. We want to help you stay well and avoid ICD shocks. Use the nicotine patches to stop smoking. There are many resources to help people stop smoking. Please look into getting help to stay quit. If anxiety is an issue, get help. Distraction is another way to avoid smoking. Please find another PCP to help you in your health! documented in this encounter Progress Notes * Tess Roche APRN - 03/13/2023 2:00 PM EDT Images from the original note were not included. 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 Note from SYBIL Regan: today RTC to patient who reports she had an ICD inserted 10/2021, and a subsequent infected incision 2 months later. States she's been fine since until yesterday when she started experiencing pain and itching over the incision site again. States incision is red and lumpy and the bottom sinks in and looks like a hole is starting. Denies fevers, but states she hasn't been feeling well. States there is no drainage from the site, like last time, but that it feels very similar. She complains of itching and a lump at the distal end of her sternal incision that was similar to last December 2021. There has been no drainage. She noted a bump that bubbled up a little the other day, and now has a little hole in the middle where the bubble was. It hurts to touch it. She has nothad any fevers in the last few days. She is worried that her blood pressure is high, but she has not taken her blood pressure medication today. She has intermittent tingling along the side of her face. She continues to smoke, finding it very difficult to quit, but she asked about using the Nicotine patch. She also notes both arms and middle back feel sore. She explains that her amoxicillin allergy with rash is not accurate and wonders why this is stillon her list. She has taken amoxicillin and doesn't have a problem with it. She had stomach upset with another antibiotic, but cannot remember which one. She is very curious about her battery level on her S-ICD. She explained that she became very anxious a couple of weeks ago when she heard a female voice telling her that her battery level was low andhad an anxiety attack thinking it was her ICD, but found out later that it was her daughter's cell phone battery level that was low. ROS: see HPI Constitutional: - fatigue, - fever, - chills, - insomnia Respiratory: - shortness of breath, - cough, - apnea, - wheezing Cardiovascular: - chest pain, - palpitations, - unusual rates Gastrointestinal: - nausea, - vomiting, - abdominal pain, - diarrhea Neurological: - lightheadedness, - dizziness, - syncope, - weakness Psychiatric: + anxious Skin: itching, burning, red, lumpy, hole at incision. Medications: Current Outpatient Medications on File Prior to Visit Medication Sig Dispense Refill ??? QuickVue At-Home COVID-19 Test Kit See Admin Instructions. ??? ondansetron (Zofran) 4 mg tablet Zofran 4 mg tablet Take 1 tablet every 6-8 hours by oral route as directed for 3 days. ??? Norvasc 2.5 mg Tablet Take 1 tablet by mouth daily. 90 tablet 2 ??? lidocaine (Xylocaine) 2 % Solution TAKE 10 ML BY MOUTH EVERY 8 HOURS WITH ANTACID Strength: 2 %100 mL 1 ??? Antacid-Antigas 200-200-20 mg/5 mL Suspension COMBINE 10 MLS WITH LIDOCAINE ORALLY THREE TIMES A DAY Strength: 200-200-20 mg/5 mL 355 mL 1 ??? famotidine (Pepcid) 40 mg Tablet Take 1 tablet by mouth 2 times daily. 180 tablet 2 ??? nitroGLYcerin (Nitrostat) 0.4 mg Tablet, Sublingual Place 1 tablet under the tongue every 5 minutes as needed for Chest pain. 30 tablet 1 ??? benzonatate (Tessalon) 100 mg Capsule Take 1 capsule by mouth 3 times daily as needed for Cough. 12 tablet 0 ??? acetaminophen (Tylenol) 325 mg Tablet Take 3 tablets by mouth every 6 hours as needed for Pain.30 tablet 1 ??? ibuprofen (Advil) 600 mg Tablet Take 1 tablet by mouth every 6 hours. 30 tablet 12 ??? polyethylene glycoL (Miralax) 17 gram Powder in Packet Take 17 g by mouth daily. 14 each 0 ??? clonazePAM (KlonoPIN) 1 mg Tablet Take 1 mg by mouth 3 times daily as needed. ??? fluticasone propionate (Flonase) 50 mcg/actuation [place], Suspension 1 spray by Each Nare route nightly. Substitute OTC if needed Indications: inflammation of the nose due to an allergy 16 g 1 ??? vitamin C 500 mg Tablet TAKE ONE TABLET BY MOUTH EVERY DAY ??? cetirizine (ZyrTEC) 10 mg Tablet TAKE ONE TABLET BY MOUTH EVERY DAY ??? fluticasone propionate (Flovent HFA) 110 mcg/actuation HFA Aerosol Inhaler Every 12 hours. ??? ipratropium-albuteroL (Duoneb) 0.5 mg-3 mg(2.5 mg base)/3 mL Solution for Nebulization Every 6 hours. ??? albuterol 90 mcg/actuation HFA Aerosol Inhaler Inhale 2 puffs into the lungs every 4 hours as needed for Wheezing. Use with spacer ??? calcium carbonate (TUMS) 200 mg calcium (500 mg) Tablet, Chewable Take 1 tablet by mouth as needed. ??? norethindrone (MICRONOR) 0.35 mg Tablet Take 1 tablet by mouth daily. (Patient not taking: Reported on 03/13/2023) 84 tablet 5 ??? magnesium oxide (Mag-Ox) 400 mg (241.3 mg magnesium) Tablet Take 1 tablet by mouth daily. (Patient not taking: Reported on 03/13/2023) 30 tablet 12 ??? nicotine (Nicoderm CQ) 14 mg/24 hr Patch 24 hr Change 1 patch on the skin daily. (Patient not taking: Reported on 03/13/2023) 28 patch 0 ??? sucralfate (Carafate) 1 gram Tablet TAKE 1 TABLET BY MOUTH TWICE DAILY ON AN EMPTY STOMACH No current facility-administered medications on file prior to visit. Objective: Vitals: Vitals: 03/13/23 1425 BP: (!) 141/102 BP Location (NBP): Right arm Patient Position: Sitting BP Cuff Sizes: Adult (25-34 cm) Pulse: 67 SpO2: 100% Weight: 70.4 kg (155 lb 3.2 oz) Height: 162.6 cm (5' 4) Physical Exam: General- No acute distress, sitting in chair Skin- Left side/flank incision is healed, no signs of infection. Sternal incision (distal end- see photo below) intact, healed. 1cmX 0.5 cm elliptical shaped indurated area superior to cratered lesion likely previous vesicle with top detached. Cardiovascular- regular rate and rhythm. No murmur. 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 Likely superficial skin infection/inflammation with wound at distal edge of distal sternal healed incision. Dr. Rubi assessed wound as well. Will prescribe Bactrim DS 1 tab twice daily for 6 days to treat broad-spectrum coverage of possible infection. Discussed wound care using soap and water and keeping fingers away from wound. Can cover with bandaid if unable to avoid itching to help deter scratching,but recommend leaving open to air if possible. - Device is functioning appropriately, reassured battery level is ok. - Programming changes ?? None - Follow up: in ~4 weeks to reassess wound. Long discussion regarding smoking cessation and importance related to the severe coronary vasospasmseen on cardiac catheterization with injection of left main coronary artery and resultant VT/VF requiring multiple defibrillations and IABP for support. She is willing to try quitting smoking again and asked for patches. Plan: 1. Bactrim-DS 1 tab twice daily 2. Nicotine patches: 21mg daily for 7 days, then 14 mg daily for 7 days, then 7mg daily for 7 days,then stop. 3. Follow up in ~ 4 weeks for wound assessment. Tess Roche APRN 03/13/2023 Pager: [phone] documented in this encounter Plan of Treatment Upcoming Encounters Date Type Department Care Team (Late st Contact Info) Description 09/21/2024 8:15 AM EST Routine Obstetrics [place] [address] Emili Cabrera MD [facility] [place]NAL [place] [address] 09/26/2024 6:00 PM EST Appointment [facility] [place] [address] 10/16/2024 Hospital [place] [address] Dudley Aguilar MD [facility] OBSTETRICS [place] [address] 11/08/2024 10:00 AM EST Hospital Encounter [place] [phone] Arrived documented as of this encounter Visit Diagnoses Diagnosis Smoking Tobacco use disorder 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
--- OUTSIDE RECORDS SUMMARY | 2024-09-20 11:04 | XMS_ITS | Encounter Summary ---
Author Organization [facility] [place] [address] Care Team Providers Care Sewage Disposal Worker Name Role Phone None Primary Care Provider Unavailabl e Encounter Details Date Type Department Care Team (Late st Contact Info) Description 03/29/2023 Interpretation Only [address] [phone] Katherin Álvarez MD [address] [place] [id number] Social History Tobacco Use Types Packs/Day Years [...] AM EST Routine Obstetrics [place] [address] Emili Cabrera MD [facility] [place] [address] 09/26/2024 6:00 PM EST Appointment [facility] [place] [phone] 10/16/2024 Hospital [place] [phone] Dudley Aguilar MD [facility] DR OBSTETRICS [place] [address] 11/08/2024 10:00 AM EST Hospital Encounter Non-[place] [phone] Arrived documented as of this encounter Visit Diagnoses Not on filedocumented in this encounter Care Teams Sewage Disposal Worker Relationship Specialty Start Date End Date None None PCP - General 05/30/22 09/28/23 documented as of this encounter
--- OUTSIDE RECORDS SUMMARY | 2024-09-20 11:04 | XMS_ITS | Encounter Summary ---
Author Organization [facility] [place] [address] Care Team Providers Care Circulation Worker Name Role Phone None Primary Care Provider Unavailabl e Encounter Details Date Type Department Care Team (Late st Contact Info) Description 09/06/2022 Telephone Obstetrics [place] [phone] Marline Harvey Social History Tobacco Use Types Packs/Day Years [...] AM EST Routine Obstetrics [place] [phone] Emili Cabrera MD [facility] [place] [address] 09/26/2024 6:00 PM EST Appointment [facility] [place] [address] 10/16/2024 Hospital [place] [address] Dudley Aguilar MD [facility] OBSTET[place] [address] 11/08/2024 10:00 AM EST Hospital Encounter [place] [address] Arrived documented as of this encounter Visit Diagnoses Not on filedocumented in this encounter Care Teams Circulation Worker Relationship Specialty Start Date End Date None None PCP - General 05/30/22 09/28/23 documented as of this encounter
--- OUTSIDE RECORDS SUMMARY | 2024-09-20 11:04 | XMS_ITS | Encounter Summary ---
Author [facility] [place] [address] Care Team Providers Care Barrel Polisher Inside Name Role Phone None Primary Care Provider Unavailabl e Encounter Details Date Type Department Care Team (Latest Contact Info) Description 11/19/2022 10:00 AM EST - 11/19/2022 11:59 PM [facility] Hospital Encounter Non-[place] [address] Discharge Disposition: Home Social History Tobacco Use [...] each 07/29/2022 fluticasone propionate (Flonase) 50 mcg/actuation [place], SuspensionIndications :allergic rhinitis 1 spray by Each [...] Take 1 tablet by mouth as needed. QuickVue At-Home COVID-19 Test Kit See Admin [...] 6 hours. 30 tablet 12 07/29/2022 03/09/2024 nicotine (Nicoderm CQ) 14 mg/24 hr Patch 24 hr Change 1 patch on the skin daily. 28 patch 07/29/2022 03/13/2023 clonazePAM (KlonoPIN) 1 mg Tablet Take 1 [...] AM EST Routine Obstetrics [place] [address] Emili Cabrera MD [facility] MATERNAL [place] [address] 09/26/2024 6:00 PM EST Appointment [facility] [place] [address] 10/16/2024 [place] [address] Dudley Aguilar MD [facility] OBSTETRICS [place] [address] 11/08/2024 10:00 AM EST Hospital Encounter Non-Invasive [place] [phone] Arrived documented as of this encounter Visit Diagnoses Not on filedocumented in this encounter Care Teams Barrel Polisher Inside Relationship Specialty Start Date End Date None None PCP - General 05/30/22 09/28/23 documented as of this encounter
--- OUTSIDE RECORDS SUMMARY | 2024-09-20 11:04 | XMS_ITS | Encounter Summary ---
Author Organization [facility] Address [facility] [place] [address] Care Team Providers Care Geophysical Prospecting Surveyor Name Role Phone None Primary Care Provider Unavailabl e Encounter Details Date Type Department Care Team (Late st Contact Info) Description 11/06/2022 External [place] [address] Social History Tobacco Use Types [...] AM EST Routine Obstetrics [place] [address] Emili Cabrera MD [facility] [place] [address] 09/26/2024 6:00 PM EST Appointment [facility] [place] [address] 10/16/2024 Hospital Encounter [place] [address] Dudley Aguilar MD [facility] DR OBSTETRICS [place] [address] 11/08/2024 10:00 AM EST Hospital Encounter [place] [address] Arrived documented as of this encounter Procedures Procedure Name Priority Date/Time Associated Diagnosis Comments ECG SCAN Routine 11/06/2022 documented in this encounter Results * Scan Doc: ECG (11/06/2022) Historical Provider MD GONCALVES MGR SCAN EX T ORDR/RSLT documented in this encounter Visit Diagnoses Not on filedocumented in this encounter Care Teams Geophysical Prospecting Surveyor Relationship Specialty Start Date End Date None None PCP - General 05/30/22 09/28/23 documented as of this encounter
--- OUTSIDE RECORDS SUMMARY | 2024-09-20 11:04 | XMS_ITS | Encounter Summary ---
Author Organization [facility] [address] Care Team Providers Care Application Release Manager Name Role Phone None Primary Care Provider Unavailabl e Encounter Details Date Type Department Care Team (Late st Contact Info) Description 09/02/2022 Home Care Visit [facility] Maternal Child Health [address] [place] [phone] Willow Champagne RN CASE COMMUNICATION Social History Tobacco Use Types Packs/Day Years [...] AM EST Routine Obstetrics [place] [address] Emili Cabrera MD [facility] MATERNAL [place] [address] 09/26/2024 6:00 PM EST Appointment [facility] [place] [address] 10/16/2024 [place] [address] Dudley Aguilar MD [facility] OBSTETRICS AND GYNECOLOGY [place] [id number] 11/08/2024 10:00 AM EST Hospital Encounter [place] [address] Arrived documented as of this encounter Visit Diagnoses Not on filedocumented in this encounter Care Teams Application Release Manager Relationship Specialty Start Date End Date None None PCP - General 05/30/22 09/28/23 documented as of this encounter
--- OUTSIDE RECORDS SUMMARY | 2024-09-20 11:04 | XMS_ITS | Encounter Summary ---
Author Organization [facility] [place] [address] Care Team Providers Care Customer Service Associate Name Role Phone None Primary Care Provider Unavailabl e Encounter Details Date Type Department Care Team (Late st Contact Info) Description 03/29/2023 Interpretation Only [address] [phone] Yumiko Álvarez MD [address] [place] [address] Social History Tobacco Use Types Packs/Day Years [...] AM EST Routine Obstetrics [place] [address] Emili Cabrera MD [facility] [place] [address] 09/26/2024 6:00 PM EST Appointment [facility] [place] [address] 10/16/2024 [place] [address] Dudley Aguilar MD [facility] DR OBSTETRICS [place] [address] 11/08/2024 10:00 AM EST Hospital Encounter Non-Invasive [place] [address] Arrived documented as of this encounter Procedures Procedure Name Priority Date/Time Associated Diagnosis Comments XR SHOULDER LEFT STAT 03/29/2023 10:0 6 AM EDT documented in this encounter Results * XR Shoulder Left (Generic) (03/29/2023 10:06 AM EDT) PT CLASS E RAD ADMITDTTM RAD PT RAD INFO [id number]^MA RTINS^YUMIKO RAD EXAM DESC XRSHDL^XR LEFT SHOULDER ROUTINE 2+ VWS^RIS RAD Anatomical Region Laterality Modality Shoulder Left Radiographic Ewa ging Impressions 03/29/2023 10:10 AM EDT No abnormality. Thank you for letting us participate in the care of this patient. ??If you are a health care provider and have any questions regarding this report, please contact the number below. ??For patients who have questions please contact the health rn urgent care that requested your imaging first. ? Narrative 03/29/2023 10:10 AM EDT EXAMINATION: XR LEFT SHOULDER ROUTINE 2+ VWS CLINICAL HISTORY: left anterior shoulder pain TECHNIQUE: AP, Grashey, scapular Y and axillary of the left shoulder COMPARISON: None FINDINGS: No fracture or dislocation is seen. The acromioclavicular and glenohumeral joints are intact. A portion of the lead from this patient's AICD is visible. Procedure Note Chandrakant Pena MD - 03/29/2023 EXAMINATION: XR LEFT SHOULDER ROUTINE 2+ VWS CLINICAL HISTORY: left anterior shoulder pain TECHNIQUE: AP, Grashey, scapular Y and axillary of the left shoulder COMPARISON: None FINDINGS: No fracture or dislocation is seen. The acromioclavicular andglenohumeral joints are intact. A portion of the lead from this patient's AICD is visible. IMPRESSION No abnormality. Thank you for letting us participate in the care of this patient. If youare a health care provider and have any questions regarding this report,please contact the number below. For patients who have questions please contactthe health rn urgent care that requested your imaging first. Yumiko Álvarez MD IMG DX ORDERABLES documented in this encounter Visit Diagnoses Not on filedocumented in this encounter Care Teams Customer Service Associate Relationship Specialty Start Date End Date None None PCP - General 05/30/22 09/28/23 documented as of this encounter
--- OUTSIDE RECORDS SUMMARY | 2024-09-20 11:04 | XMS_ITS | Encounter Summary ---
Author Organization [facility] [place] [address] Care Team Providers Care Leather Staker Name Role Phone None Primary Care Provider Unavailabl e Encounter Details Date Type Department Care Team (Late st Contact Info) Description 12/27/2022 Telephone Obstetrics [place] [phone] Tanisha Mari Social History Tobacco Use Types Packs/Day Years [...] AM EST Routine Obstetrics [place] [phone] Emili Cabrera MD [facility] [place] [address] 09/26/2024 6:00 PM EST Appointment [facility] [place] [address] 10/16/2024 Hospital [place] [address] Dudley Aguilar MD [facility] OBSTETRICS [place] [address] 11/08/2024 10:00 AM EST Hospital Encounter [place] [address] Arrived documented as of this encounter Visit Diagnoses Not on filedocumented in this encounter Care Teams Leather Staker Relationship Specialty Start Date End Date None None PCP - General 05/30/22 09/28/23 documented as of this encounter
--- OUTSIDE RECORDS SUMMARY | 2024-09-20 11:04 | XMS_ITS | Encounter Summary ---
[facility] Organization [facility] Address [facility] [place] [address] Care Team Providers Care Veneer Glue Jointer Feedback Name Role Phone None Primary Care Provider Unavailabl e Encounter Details Date Type Department Care Team (Latest Contact Info) Description 10/31/2022 10:40 AM EST Office Visit Cardiology at [address] [phone] Kaylen Brasher MD [facility] [place] [address] Chest pain, unspecified type; Chronic hypertension in ; Subcutaneous defibrillator implanted 11/12/2021 Social History Tobacco Use Types Packs/Day Years [...] Sign Reading Time Taken Comments Blood Pressure 150/90 10/31/2022 11:08 AM EST Pulse 82 10/31/2022 11:08 AM EST Temperature - - Respiratory Rate - - Oxygen Saturation 99% 10/31/2022 11:08 AM EST Inhaled Oxygen Concentration - - Weight 70.8 kg (156 lb 1.6 oz) 10/31/2022 11:08 AM EST Height 162.6 cm (5' 4) 10/31/2022 11:08 AM EST Body Mass Index 26.79 10/31/2022 11:08 AM EST documented in this encounter Progress Notes * Kaylen Brasher MD - 10/31/2022 10:40 AM EST Images from the original note were not included. Formerly [facility] [place] [address] [place] [address] CARDIOLOGY OUTPATIENT PROGRESS NOTE PRIMARY CARE PROVIDER: None REFERRING PROVIDER: None PROBLEM LIST: Patient Active Problem List Diagnosis ??? Chronic hypertension in ??? Encounter for induction of labor ??? Subcutaneous defibrillator implanted 11/12/2021 Pulse generator: [employer] MRI S-ICD Pulse Generator Model A219 Serial Number [id number] Implanted 11/12/21 Ventricular electrode: SQ electrode Model 3501 Bipolar Serial Number [id number] Implanted 11/12/21 ??? Cigarette smoker ??? Coronary artery vasospasm ??? *History of COVID-19 ??? Cardiac arrest Per 05/14/2022 Cardiology note: Summary: Cardiac arrest secondary to vasospasm on CCB/nitrates PRN. There did not appear to have been myocardial damage nor cardiomyopathy after her arrest. LVEF 68% without RWMA. ?She has a sub-Q ICD which has not fired. ??And was counseled extensively to quit smoking.? Gastroesophageal reflux disease Added automatically from request for surgery [id number] ??? Borderline personality disorder ??? Post-traumatic stress disorder, chronic ??? Anxiety disorder, unspecified The patient is a 34-year-old woman who presented with worsening anxiety surrounding nonspecific somatic complaints such as full body tingling. She has a number of existing medical issues such as HTN,asthma, and GERD, the symptoms of which (e.g. heartburn, cough) tend to provoke her anxiety. ??? Chest pain ETT 2013- negative ST III Echo 2013 ??Normal LV size and function, trivial TR, mild PI ??? Skin disease ??? Depression ??? Asthma Rx PRN albuterol Pulmonary workup negative 2007 (in [facility]) ??? Hypertension Onset 2013, variable BP highs of 160-170 systolic, then normal ??? Tachycardia ??? Recurrent major depressive episodes, moderate MEDICATIONS: Current Outpatient Medications Medication Sig Dispense Refill ??? Norvasc 2.5 mg Tablet Take 1 [...] needed for Cough. 12 tablet 0 ??? norethindrone (MICRONOR) 0.35 mg Tablet Take 1 tablet by mouth daily. 84 tablet 5 ??? magnesium oxide (Mag-Ox) 400 mg (241.3 mg magnesium) Tablet Take 1 tablet by mouth daily. 30 tablet 12 ??? acetaminophen (Tylenol) 325 mg Tablet Take 3 tablets by mouth every 6 hours as needed for Pain.30 tablet 1 ??? ibuprofen (Advil) 600 mg Tablet Take 1 tablet by mouth every 6 hours. 30 tablet 12 ??? nicotine (Nicoderm CQ) 14 mg/24 hr Patch 24 hr Change 1 patch on the skin daily. 28 patch 0 ??? polyethylene glycoL (Miralax) 17 gram Powder in Packet Take 17 g by mouth daily. 14 each 0 ??? clonazePAM (KlonoPIN) 1 mg Tablet Take 1 mg by mouth 3 times daily as needed. ??? fluticasone propionate (Flonase) 50 mcg/actuation [place], Suspension 1 spray by Each Nare route [...] Solution for Nebulization Every 6 hours. ??? sucralfate (Carafate) 1 gram Tablet TAKE 1 TABLET BY MOUTH TWICE DAILY ON AN EMPTY STOMACH ??? albuterol 90 mcg/actuation HFA Aerosol Inhaler Inhale 2 puffs into the lungs every 4 hours as needed for Wheezing. Use with spacer ??? calcium carbonate (TUMS) 200 mg calcium (500 mg) Tablet, Chewable Take 1 tablet by mouth as needed. No current facility-administered medications for this visit. Subjective: Patient ID: Aniya Luque is a 37 y.o. patient of None. HPI: 37 yo F, 3 month post-, here for cardio-ob follow up Previous witnessed VF cardiac arrest with bystander CPR ( her fijoel Root) and ROSC after extensive resuscitation. PTSD, anxiety S/p sICD, never fired Echo normal Cath: incomplete, cor spasm during angiogram Presumed Dx for VF was coronary spasm, which was hard to confirm. ?? C/o chest pain, not feeling well. Very anxious. C/o dizziness C/o ICD pocket discomfort REVIEW OF SYSTEMS: Review of Systems Cardiovascular: Positive for chest pain and palpitations. Respiratory: Negative. No PND or orthopnea No syncope No claudication Family History: Family History Problem Relation Age of Onset ??? Migraines Mother ??? Cancer Mother Social History: Social History Socioeconomic History ??? Marital status: Single Spouse name: Not on file ??? Number of children: Not on file ??? Years of education: Not on file ??? Highest education level: Not on file Occupational History ??? Not on file Tobacco Use ??? Smoking status: Every Day Packs/day: 1.00 Years: 15.00 Pack years: 15.00 Types: Cigarettes ??? Smokeless tobacco: Never ??? Tobacco comments: Smokess 0.5 - 1 packs of cigarettes daily x 13 - 14 years. Vaping Use ??? Vaping Use: Never used Substance and Sexual Activity ??? Alcohol use: Not Currently ??? Drug use: Not Currently Comment: CBD as needed ??? Sexual activity: Yes Partners: Male Comment: question deferred Other Topics Concern ??? Do You live alone? Not Asked ??? Tobacco in Home Not Asked Social History Narrative ??? Not on file Social Determinants of Health Financial Resource Strain: Not on file Food Insecurity: Not on file Transportation Needs: Not on file Physical Activity: Not on file Housing Stability: Not on file Objective: PHYSICAL EXAM: BP 150/90 (BP Location (NBP): Right arm, Patient Position: Sitting) Pulse 82 Ht 162.6 cm (5' 4) Wt 70.8 kg (156 lb 1.6 oz) LMP 11/08/2021 SpO2 99% BMI 26.79 kg/m?? , Body mass index is 26.79 kg/m??. BP recheck 120/74 General: Pleasant. No distress. Skin: Warm and dry. HEENT: Anicteric sclera. Neck: JVP not elevated. No AJR. No carotid bruits. Chest: Clear to auscultation Heart: No heave. Regularly regular rhythm. Normal S1 and S2. No gallops. No murmurs. Abdomen: Nondistended. Soft. Nontender. Extremities: No edema. COMPONENT ASSEMBLER: Normal mentation. Psych: Appropriate affect. Labs: Lab Results Component Value Date WBC [...] 130 11/04/2021 Assessment: Aniya Luque is a 37 y.o. patient of None presenting with: post- follow up Chest pain Non-cardiac based on symptoms Observe Chronic hypertension in BP in range after repeat measure C/o dizziness, will go back to amlodipine to 2.5 mg daily Subcutaneous defibrillator implanted 11/12/2021 Arrange for ICD check Plan: ??? Schedule for ICD check ??? Decrease Norvasc to 2.5 mg daily due to dizziness ??? RTC in 6 months Thank you for the opportunity to participate in this patient's cardiovascular care. All questions were answered and I look forward to the next visit. Kaylen Brasher MD documented in this encounter Miscellaneous Notes * Assessment & Plan Note - Kaylen Brasher MD - 10/31/2022 3:17 PM EST Associated Problem(s): [place] [employer] SQ ICD, single, in situ Arrange for ICD check * Assessment & Plan Note - Kaylen Brasher MD - 10/31/2022 3:17 PM EST Associated Problem(s): Chronic hypertension in BP in range after repeat measure C/o dizziness, will go back to amlodipine to 2.5 mg daily * Assessment & Plan Note - Kaylen Brasher MD - 10/31/2022 3:16 PM EST Associated Problem(s): Cardiac Arrest Due to Vasospasm Non-cardiac based on symptoms Observe documented in this encounter Plan of Treatment Upcoming Encounters Date Type Department Care Team (Late st Contact Info) Description 09/21/2024 8:15 AM EST Routine Obstetrics [place] [address] Emili Cabrera MD [facility] [place] [address] 09/26/2024 6:00 PM EST Appointment [facility] [place] [phone] 10/16/2024 [place] [address] Dudley Aguilar MD [facility] DR OBSTETRICS [place] [address] 11/08/2024 10:00 AM EST Hospital Encounter Non-[place] [address] Arrived documented as of this encounter Visit Diagnoses Diagnosis Chest pain, unspecified type Chronic hypertension in Benign essential hypertension complicating , childbirth, and the puerperium, unspecified as to episode of care Subcutaneous defibrillator implanted 11/12/2021 documented in this encounter Care Teams Veneer Glue Jointer Feedback Relationship Specialty Start Date End Date None None PCP - General 05/30/22 09/28/23 documented as of this encounter
--- OUTSIDE RECORDS SUMMARY | 2024-09-20 11:04 | XMS_ITS | Encounter Summary ---
Author Organization [facility] [place] [address] Care Team Providers Care Head Of Housekeeping Name Role Phone None Primary Care Provider Unavailabl e Encounter Details Date Type Department Care Team (Late st Contact Info) Description 12/23/2022 Telephone Obstetrics [place] [phone] Tanisha Mari Social History Tobacco Use Types [...] AM EST Routine Obstetrics [place] [phone] Emili Cabrera MD [facility] [place] [address] 09/26/2024 6:[address] [facility] [place] [address] 10/16/2024 Hospital Encounter [place] [address] Dudley Aguilar MD [facility] OBSTETRICS [place] [address] 11/08/2024 10:00 AM EST Hospital Encounter Non-Invasive [place] [address] Arrived documented as of this encounter Visit Diagnoses Not on filedocumented in this encounter Care Teams Head Of Housekeeping Relationship Specialty Start Date End Date None None PCP - General 05/30/22 09/28/23 documented as of this encounter
--- OUTSIDE RECORDS SUMMARY | 2024-09-20 11:04 | XMS_ITS | Encounter Summary ---
Author Organization [facility] [place] [address] Care Team Providers Care Drywall Application Supervisor Name Role Phone None Primary Care Provider Unavailabl e Encounter Details Date Type Department Care Team (Latest Contact Info) Description 03/13/2023 Travel Social History Tobacco Use Types Packs/Day [...] AM EST Routine Obstetrics [place] [address] Emili Cabrera MD [facility] [place] [address] 09/26/2024 6:[address] [facility] [place] [address] 10/16/2024 Hospital Encounter [place] [address] Dudley Aguilar MD [facility] DR OBSTETRICS [place] [address] 11/08/2024 10:00 AM EST Hospital Encounter Non[place] [address] Arrived documented as of this encounter Visit Diagnoses Not on filedocumented in this encounter Care Teams Drywall Application Supervisor Relationship Specialty Start Date End Date None None PCP - General 05/30/22 09/28/23 documented as of this encounter
--- OUTSIDE RECORDS SUMMARY | 2024-09-20 11:04 | XMS_ITS | Encounter Summary ---
Author Organization [facility] [place] [address] Care Team Providers Care Implementation Coordinator Name Role Phone None Primary Care Provider Unavailabl e Encounter Details Date Type Department Care Team (Latest Contact Info) Description 10/20/2022 Travel Social History Tobacco Use Types Packs/Day [...] AM EST Routine Obstetrics [place] [address] Emili Cabrera MD [facility] [place] [address] 09/26/2024 6:00 PM EST Appointment [facility] [place] [address] 10/16/2024 Hospital Encounter [place] [address] Dudley Aguilar MD [facility] DR OBSTETRICS [place] [address] 11/08/2024 10:00 AM EST Hospital Encounter Non-[place]vasive [place] [address] Arrived documented as of this encounter Visit Diagnoses Not on filedocumented in this encounter Additional Health Concerns Infection Onset Date Last Indicated Resolved Time Rule Out COVID-19 10/20/2022 10/20/2022 10/20/2022 9:20 AM EST documented as of this encounter Care Teams Implementation Coordinator Relationship Specialty Start Date End Date None None PCP - General 05/30/22 09/28/23 documented as of this encounter
--- OUTSIDE RECORDS SUMMARY | 2024-09-20 11:04 | XMS_ITS | Encounter Summary ---
Author Organization [facility] [place] [address] Care Team Providers Care Photo Finisher Name Role Phone None Primary Care Provider Unavailabl e Encounter Details Date Type Department Care Team (Late st Contact Info) Description 09/10/2022 Telephone Obstetrics [place] [phone] Marline Harvey Social History Tobacco Use Types [...] AM EST Routine Obstetrics [place] [phone] Emili Cabrera MD [facility] [place] [address] 09/26/2024 6:00 PM EST Appointment [facility] [place] [address] 10/16/2024 Hospital Encounter [place] [address] Dudley Aguilar MD [facility] OBSTETRICS [place] [address] 11/08/2024 10:00 AM EST Hospital Encounter Non[place] [address] Arrived documented as of this encounter Visit Diagnoses Not on filedocumented in this encounter Care Teams Photo Finisher Relationship Specialty Start Date End Date None None PCP - General 05/30/22 09/28/23 documented as of this encounter
--- OUTSIDE RECORDS SUMMARY | 2024-09-20 11:04 | XMS_ITS | Encounter Summary ---
Author Organization [facility] [place] [address] Care Team Providers Care Army Manager Name Role Phone None Primary Care Provider Unavailabl e Encounter Details Date Type Department Care Team (Late st Contact Info) Description 03/29/2023 Interpretation Only [address] [phone] Yumiko Álvarez MD [address] [place] [id number] Social History Tobacco Use Types Packs/Day Years [...] AM EST Routine Obstetrics [place] [address] Emili Cabrera MD [facility] MATERNAL [place] [address] 09/26/2024 6:00 PM EST Appointment [facility] [place] [address] 10/16/2024 [place] [address] Dudley Aguilar MD [facility] DR OBSTETRICS [place] [address] 11/08/2024 10:00 AM EST Hospital Encounter [place] [address] Arrived documented as of this encounter Procedures Procedure Name Priority Date/Time Associated Diagnosis Comments XR CHEST PA AND LATERAL STAT 03/29/2023 8:39 AM EDT documented in this encounter Results * XR Chest PA & Lateral (Generic) (03/29/2023 8:39 AM EDT) PT CLASS E RAD ADMITDTTM RAD PT RAD INFO [id number]^M ARTINS^YUMIKO RAD EXAM DESC XCXR2^XR CHEST 2 VIEWS^RIS RAD Anatomical Region Laterality Modality Chest N/A Radiographic Ewa ging Impressions 03/29/2023 9:58 AM EDT No acute cardiopulmonary disease. Thank you for letting us participate in the care of this patient. ??If you are a health care provider and have any questions regarding this report, please contact the number below. ??For patients who have questions please contact the health healthcare corporate account director that requested your imaging first. ? Electronically signed by: [facility]kant Pena [facility] ([phone]), at 03/29/2023 9:58 AM Narrative 03/29/2023 9:58 AM EDT EXAMINATION: XR CHEST 2 VIEWS CLINICAL HISTORY: pain TECHNIQUE: Chest PA and lateral COMPARISON: February 20, 2023 FINDINGS: The heart is normal in size and the mediastinum has a normal contour. An AICD is present with a subcutaneous lead that is unchanged in position. Both lungs are clear. The costophrenic angles are sharp. There is no pneumothorax. No acute bone abnormalities are present. There is no change in appearance since the previous examination. Procedure Note Chandrakant Pena MD - 03/29/2023 EXAMINATION: XR CHEST 2 VIEWS CLINICAL HISTORY: pain TECHNIQUE: Chest PA and lateral COMPARISON: February 20, 2023 FINDINGS: The heart is normal in size and the mediastinum has a normal contour. AnAICD is present with a subcutaneous lead that is unchanged in position. Both lungs are clear. The costophrenic angles are sharp. There is no pneumothorax. No acute bone abnormalities are present. There is no change in appearance since the previous examination. IMPRESSION No acute cardiopulmonary disease. Thank you for letting us participate in the care of this patient. If youare a health care provider and have any questions regarding this report,please contact the number below. For patients who have questions please contactthe health healthcare corporate account director that requested your imaging first. Electronically signed by: Chandrakant Pena MD[facility]([phone]), at 03/29/2023 9:58 AM Yumiko Álvarez MD IMG DX ORDERABLES documented in this encounter Visit Diagnoses Not on filedocumented in this encounter Care Teams Army Manager Relationship Specialty Start Date End Date None None PCP - General 05/30/22 09/28/23 documented as of this encounter
--- OUTSIDE RECORDS SUMMARY | 2024-09-20 11:04 | XMS_ITS | Encounter Summary ---
Author Organization [facility] Address [facility] [place] [address] Care Team Providers Care Welding Pantograph Machine Operator Name Role Phone None Primary Care Provider Unavailabl e Encounter Details Date Type Department Care Team (Late st Contact Info) Description 08/20/2022 Orders Only Cardiology at [address] [address] Social History Tobacco Use Types Packs/Day [...] AM EST Routine Obstetrics [place] [address] Emili Cabrera MD [facility] [place] [address] 09/26/2024 6:[address] [facility] [place] [address] 10/16/2024 Hospital Encounter [place] [address] Dudley Aguilar MD [facility] [place] [address] 11/08/2024 10:00 AM EST Hospital Encounter [place] [address] Arrived documented as of this encounter Procedures Procedure Name Priority Date/Time Associated Diagnosis Comments PRO ICD INTERROGATION REMOTE UP TO 90 DAYS Routine 09/25/2022 10:09 AM EST CARDIAC DEVICE CHECK - REMOTE Routine 08/20/2022 10:12 AM EDT CARDIAC DEVICE CHECK - REMOTE SCHEDULED Routine 08/20/2022 7:12 AM EDT documented in this encounter Results * Cardiac Device Check - Remote (09/25/2022 10:09 AM EST) Anatomical Region Laterality Modality Other 09/25/2022 10:0 9 AM EST Bertin Rubi MD IMPLANTABLE CARDIAC DEVICE * Cardiac Device Check - Remote (08/20/2022 10:12 AM EDT) Anatomical Region Laterality Modality Other 08/20/2022 10:1 2 AM EDT Isai Yap MD IMPLANTABLE CARDIAC DEVICE * Cardiac device check - Remote Scheduled (08/20/2022 7:12 AM EDT) Implantable Pulse Generator Type Defibrillator IDCO Implantable Pulse Generator Model A219 IDCO Implantable Pulse Generator Serial Number [id number] IDCO Implantable Pulse Generator Spd [employer] IDCO Implantable Pulse Generator Implant Date 20211112 IDCO Date Time Interrogation Session IDCO Type Interrogation Session Remote Scheduled IDCO Clinic Name [facility] IDCO Battery Date Time of Measurements IDCO Battery Status Beginning of Service IDCO Battery Remaining Percentage 92 IDCO Tachy Therapy Setting Ventricular Status On IDCO Zone Setting Type Category VF IDCO Zone Setting Vendor Type Category VF IDCO Zone Setting Status Active IDCO Zone Setting Detection Interval 250 ms IDCO Zone Setting Shock Energy 80 J IDCO Zone Setting Type Category VT IDCO Zone Setting Vendor Type Category VT IDCO Zone Setting Status Active IDCO Zone Setting Detection Interval 300 ms IDCO Zone Setting Detection Details SMART Charge: 0 s IDCO Zone Setting Shock Energy 80 J IDCO Episode Statistic Type Category Other IDCO Episode Statistic Vendor Type Category IDCO Episode Statistic Recent Count 0 IDCO Episode Statistic Recent Date Time Start 20220731 IDCO Episode Statistic Recent Date Time End 20220820 IDCO Episode Statistic Total Count 0 IDCO Episode Statistic Total Date Time Start 20211112 IDCO Episode Statistic Total Date Time End 20220820 IDCO Episode Statistic Type Category VF IDCO Episode Statistic Vendor Type Category VF IDCO Episode Statistic Recent Count 0 IDCO Episode Statistic Recent Date Time Start 20220731 IDCO Episode Statistic Recent Date Time End 20220820 IDCO Episode Statistic Total Count 0 IDCO Episode Statistic Total Date Time Start 20211112 IDCO Episode Statistic Total Date Time End 20220820 IDCO Therapy Statistic Recent Date Time Start 20220731 IDCO Therapy Statistic Recent Date Time End 20220820 IDCO Therapy Statistic Recent Shocks Delivered 0 IDCO Therapy Statistic Total Date Time Start 20211112 IDCO Therapy Statistic Total Date Time End 20220820 IDCO Therapy Statistic Total Shocks Delivered 1 IDCO Implantable Lead Model 3501 IDCO Implantable Lead Serial Number [id number] IDCO Implantable Lead Spd Tech [employer] IDCO Implantable Lead Location Other IDCO Implantable Lead Location Detail 1 Subcutaneous IDCO Anatomical Region Laterality Modality Other 08/20/2022 7:12 AM EDT Physician Cardiology IMPLANTABLE CARD IAC DEVICE documented in this encounter Visit Diagnoses Not on filedocumented in this encounter Care Teams Welding Pantograph Machine Operator Relationship Specialty Start Date End Date None None PCP - General 05/30/22 09/28/23 documented as of this encounter
--- OUTSIDE RECORDS SUMMARY | 2024-09-20 11:04 | XMS_ITS | Encounter Summary ---
Author Organization [facility] Address [facility] [place] [address] Care Team Providers Care Submarine Advisory Team Watch Officer Name Role Phone None Primary Care Provider Unavailabl e Reason for Referral * Consultation (Routine) - Closed Specialty Diagnoses / Procedures Referred By Contac t Referred To Contact Internal Medicine Diagnoses Acute cough Casimiro Samson MD [facility] [place] [address] [facility] [place] [address] Referral ID Status Reason Start Date Expiration Date V isits Requested Visits Authorized [id number] Closed Consult, Test & Treat 10/20/2022 10/20/2023 1 1 Reason for Visit * Reason Comments URI Chest pain Encounter Details Date Type Department Care Team (Late st Contact Info) Description 10/20/2022 7:17 AM EST - 10/20/2022 9:21 AM EST Emergency Emergency Services at [address] [address] Casimiro Samson MD [facility] [place] [address] Acute cough Discharge Disposition: Home Social History Tobacco Use [...] Sign Reading Time Taken Comments Blood Pressure 134/75 10/20/2022 9:06 AM EST Pulse 58 10/20/2022 9:06 AM EST Temperature 36.6 ??C (97.8 ??F) 10/20/2022 7:15 AM ES T Respiratory Rate 16 10/20/2022 9:06 AM EST Oxygen Saturation 100% 10/20/2022 9:06 AM EST Inhaled Oxygen Concentration - - Weight 70 kg (154 lb 5.2 oz) 10/20/2022 7:15 AM EST Height - - Body Mass Index 26.49 07/25/2022 11:33 AM EDT documented in this encounter Discharge Instructions * Discharge Instructions* Casimiro Samson MD - 10/20/2022 9:02 AM EST You are seen today for cough. You should rest and stay well-hydrated. Use motrin 400 mg every 6 hours for pain or tylenol 650 mg every 6 hours for pain, or both. Additionally, you can use Tessalon Perles 100 mg every 8 hours if needed for cough or sore throat. You should return to the emergency department if you are becoming more ill, fevers or chills, difficulty breathing, new symptoms or other concerns. You should follow-up to establish care with a primary care provider. * Attachments The following attachments cannot be sent through Care Everywhere. * Cough (Sinhala) documented in this encounter Medications at Time of Discharge Medication Sig Dispensed Refills Start Date End Date acetaminophen (Tylenol) 325 mg Tablet Take 3 tablets by mouth every 6 hours as needed for Pain. 30 tablet 1 07/29/2022 polyethylene glycoL (Miralax) 17 gram Powder in Packet Take 17 g by mouth daily. 14 each 07/29/2022 fluticasone propionate (Flonase) 50 mcg/actuation Pella, SuspensionIndications :allergic rhinitis 1 spray by Each [...] Take 1 tablet by mouth as needed. ondansetron (Zofran) 4 mg tablet Zofran 4 mg tablet Take 1 tablet every 6-8 hours by oral route as directed for 3 days. 06/04/2022 03/02/2024 norethindrone (MICRONOR) 0.35 mg Tablet Take 1 tablet by mouth daily. 84 tablet 5 10/05/2022 03/09/2024 magnesium oxide (Mag-Ox) 400 mg (241.3 mg magnesium) Tablet Take 1 tablet by mouth daily. 30 tablet 12 07/31/2022 08/12/2023 famotidine (Pepcid) 40 mg Tablet Take 1 tablet by mouth 2 times daily. 60 tablet 5 07/29/2022 10/31/2022 ibuprofen (Advil) 600 mg Tablet Take 1 tablet by mouth every 6 hours. 30 tablet 12 07/29/2022 03/09/2024 nicotine (Nicoderm CQ) 14 mg/24 hr Patch 24 hr Change 1 patch on the skin daily. 28 patch 07/29/2022 03/13/2023 nitroGLYcerin (Nitrostat) 0.4 mg Tablet, Sublingual Place 1 tablet under the tongue every 5 minutes as needed for Chest pain. 30 tablet 1 07/09/2022 10/31/2022 Norvasc 2.5 mg Tablet Take 1 tablet by mouth 2 times daily. Take 1 tablet in the morning and 2 tablets at night. 180 tablet 1 06/28/2022 10/31/2022 lidocaine (Xylocaine) 2 % Solution TAKE 10 ML BY MOUTH EVERY 8 HOURS WITH ANTACID 04/17/2022 10/31/2022 Antacid-Antigas 200-200-20 mg/5 mL Suspension COMBINE 10 MLS WITH LIDOCAINE ORALLY THREE TIMES A DAY 04/25/2022 10/31/2022 clonazePAM (KlonoPIN) 1 mg Tablet Take 1 mg by mouth 3 times daily as needed. 12/23/2021 03/02/2024 vitamin C 500 mg Tablet TAKE ONE TABLET BY MOUTH EVERY DAY 08/24/2021 08/12/2023 sucralfate (Carafate) 1 gram Tablet TAKE 1 TABLET BY MOUTH TWICE DAILY ON AN EMPTY STOMACH 10/11/2020 08/12/2023 documented as of this encounter ED Notes * Casimiro Samson MD - 10/20/2022 9:04 AM EST ED Attending Note HPI: Aniya Luque is a 37 y.o. female who presents to the Emergency Department with cough over the last 4 days. Has been associated with rhinorrhea, sore throat and low-grade fever. Symptoms began spontaneously and have been constant. Patient has a previous history of cardiac arrest. After this she received an ICD. This event was approximately a year ago and she states that given her new URI symptoms she has been very anxious about that event. Vitals: ED Triage Vitals [10/20/22 0715] BP: 145/65 Heart Rate: 62 Resp: 16 Temp: 36.6 ??C (97.8 ??F) Temp src: Oral SpO2: 99 % O2 Device: n/a O2 Flow Rate (L/min): n/a Physical Exam General Appearance: Alert, NAD ENT: mmm; OP clear Respiratory: Lungs clear Cardiovascular: nl s1s2 s m/g/r Abdominal: soft, NT, ND Psych/Mental Status: Alert, Oriented Neuro: Normal gait, speech, and balance Musculoskeletal: neck supple Skin: Warm/Dry, No Rashes ED Course: I have reviewed labs and imaging, images and available reports, and they are significant for: CBC, chemistries, mag, Phos are all unremarkable. Troponin is less than 6 after multiple days of symptoms. Chest x-ray is clear with no evidence of pneumonia. EKG demonstrates sinus rhythm with no acute ST-T wave changes. XR Chest PA & Lateral (Generic) Final Result Stable interval examination, no evidence of acute cardiopulmonary disease Thank you for letting us participate in the care of this patient. If you are a health care provider and have any questions regarding this report, please contact the number below. For patients who have questions please contact the health long term acute care registered nurse that requested your imaging first. Electronically signed by: Dinh Becerril MD, [facility] ([phone]), at 10/20/2022 8:26 AM Assessment and Plan: 37 y.o. female with URI symptoms. No evidence of cardiac involvement at this time. Patient is very concerned about potential side effects from medications and reluctant to take jzsi-cmn-[id number] medications. We discussed using Tessalon Perles and the patient will try these. She will continue with ibuprofen and Tylenol. COVID and influenza are pending at discharge. Patient will rest, stay well-hydrated follow-up to establish primary care and return to the emergency department for new symptoms, worsening symptoms or other concerns. Did this case involve critical care? No The visit findings, diagnosis, and care plan were discussed with the patient. The diagnosis and care plans discussions were outlined in the discharge instructions. The patient expressed understanding of the details of the visit, the return precautions and that she should return to the ER at any time for worsening symptoms, new symptoms, or other concerns. she agrees with thefollow- up plan. Casimiro Samson MD 10/20/22 0907 documented in this encounter Miscellaneous Notes * Ancillary Services Notes - Binh Matos RT - 10/20/2022 7:29 AM EST Summary: EKG 0723: EKG ordered 0729: EKG completed, transmitted, copy to provider documented in this encounter Plan of Treatment Upcoming Encounters Date Type Department Care Team (Late st Contact Info) Description 09/21/2024 8:15 AM EST Routine Obstetrics [place] [address] Emili Cabrera MD [facility] [place] [address] 09/26/2024 6:00 PM EST Appointment [facility] [place] [phone] 10/16/2024 Hospital [place] [phone] Dudley Aguilar MD [facility] DR OBSTETRICS [place] [address] 11/08/2024 10:00 AM EST Hospital Encounter [place] [address] Arrived Scheduled Referrals Name Type Priority Associated Diagnoses Orde r Schedule Referral to General Internal Medicine Outpatient Referral Routine Acute cough Ordered: 10/20/2022 documented as of this encounter Procedures Procedure Name Priority Date/Time Associated Diagnosis Comments XR CHEST PA AND LATERAL STAT 10/20/2022 8:21 AM EST GOLD TUBE HOLD Routine 10/20/2022 8:18 AM EST BLUE TUBE HOLD Routine 10/20/2022 8:18 AM EST HC PHOSPHORUS, SERUM STAT 10/20/2022 8:11 AM EST HC MAGNESIUM, SERUM STAT 10/20/2022 8 :11 AM EST HC TROPONIN T STAT 10/20/2022 7:30 AM EST HEMOGRAM STAT 10/20/2022 7:30 AM EST DIFFERENTIAL, AUTOMATED STAT 10/20/2022 7:30 AM EST BLUE TUBE HOLD STAT 10/20/2022 7:30 AM EST HC CBC,PLT & AUTO DIFF STAT 10/20/2022 7:30 AM EST BASIC METABOLIC PANEL STAT 10/20/2022 7:30 AM EST EKG 12-LEAD STAT 10/20/2022 7:29 AM EST HC RAPID INFLUENZA A/B AND COVID PCR STAT 10/20/2022 7:26 AM EST documented in this encounter Results [...] who have questions please contact the health long term acute care registered nurse that requested your imaging first. ? Narrative [...] patients who have questions please contactthe health long term acute care registered nurse that requested your imaging first. Electronically signed by: Dinh Becerril MD, [facility]([phone]), at 10/20/2022 8:26 AM Casimiro Samson MD IMG DX ORDERABLES * Blue Tube HOLD (10/20/2022 8:18 AM EST) Blue Hold Sample in lab. [facility] Blood No Charge / Unknown 10/20/2022 8:18 AM EST 10/20/2022 8:18 AM EST Casimiro Samson MD HEMATOLOGY ORDERABLE S Performing Organization Address [facility] Co de Phone Number [facility] [address] [place] [address] * Gold Tube HOLD (10/20/2022 8:18 AM EST) Gold Hold Sample in lab. [facility] Blood No Charge / Unknown 10/20/2022 8:18 AM EST 10/20/2022 8:18 AM EST Casimiro Samson MD CHEMISTRY ORDERABLES Performing Organization Address [facility]/ZIP Co de Phone Number [facility] [address] [place] [address] * Phosphorus (10/20/2022 8:11 AM EST) Phosphorus 3.5 2.5 - 4.5 mg/dL [facility] Blood 10/20/2022 8:11 AM EST 10/20/2022 8:11 AM EST Narrative Resulting Agency Comment Spec In Lab Casimiro Samson MD CHEMISTRY ORDERABLES Performing Organization Address [facility] Co de Phone Number [facility] [address] [place] [address] * Magnesium (10/20/2022 8:11 AM EST) Pathologist [facility] Magnesium 0.79 0.69 - 1.07 mmol/L [facility] Blood 10/20/2022 8:11 AM EST 10/20/2022 8:11 AM EST Narrative Resulting Agency Comment Spec In Lab Casimiro Samson MD CHEMISTRY ORDERABLES Performing Organization Address [facility] de Phone Number [facility] [address] [place] [address] * (ABNORMAL) Differential, Automated (10/20/2022 7:30 AM EST) Pathologist [facility] Neutrophil % 66.5 % [facility] Neutrophil Absolute 6.17(H) 1.70 - 6.10 x10(3)/mc L [facility] Lymph % 18.2 % [facility] Lymphocytes Abs 1.7 0.9 - 3.2 x10(3)/mc L [facility] Monocyte % 7.4 % [facility] Monocyte Abs 0.7 0.3 - 0.9 x10(3)/mc L [facility] Eos % 7.5 % [facility] Eosinophils Abs 0.7(H) 0.0 - 0.4 x10(3)/mc L [facility] Basophil % 0.2 % [facility] Baso Absolute 0.0 0.0 - 0.1 x10(3)/mc L [facility] Immature Gran % 0.20 % [facility] Comment: Immature granulocytes(IG's)percentage and absolute count will include metamyelocytes, myelocytes, and promyelocytes. Blood smears from CBCs yielding IG's will be scanned manually for concordance. If this scan disagrees with the automated IG or if promyelocytes are noted, a manual differential will be performed. Immature Gran Absolute 0.02 0.00 - 0.04 x10(3)/mc L [facility] Blood 10/20/2022 7:30 AM EST 10/20/2022 7:45 AM EST Narrative Resulting Agency Comment Spec In Lab Casimiro Samson MD HEMATOLOGY ORDERABLE S Performing Organization Address [facility] Co de Phone Number [facility] [address] [place] [address] * (ABNORMAL) Hemogram (10/20/2022 7:30 AM EST) White Blood Cell 9.3 4.0 - 9.5 x10(3)/mc L [facility] Red Blood Cell 4.74 4.00 - 5.21 x10(6)/mc L [facility] Hemoglobin 14.0 11.7 - 15.5 g/dL [facility] Hematocrit 43.2 35.7 - 45.8 % [facility] Mean Cell Volume 91.1 82.6 - 94.4 fL [facility] Mean Cell Hemoglobin 29.5 27.1 - 32.0 pg [facility] Mean Cell Hemoglobin Concentration 32.4 31.7 - 35.0 g/dL [facility] Platelet 214 145 - 357 x10(3)/mc L [facility] RDW Standard Deviation 46.6(H) 37.0 - 46.0 fL [facility] RDW coefficient of variation 13.7 11.5 - 14.1 % [facility] Mean Platelet Volume 10.8 7.6 - 12.9 fL [facility] Blood 10/20/2022 7:30 AM EST 10/20/2022 7:45 AM EST Narrative Resulting Agency Comment Spec In Lab Casimiro Samson MD HEMATOLOGY ORDERABLE S Performing Organization Address [facility] de Phone Number [facility] [address] [place] [address] * Blue Tube HOLD (10/20/2022 7:30 AM EST) Blue Hold Sample in lab. [facility] Blood 10/20/2022 7:30 AM EST 10/20/2022 7:45 AM EST Casimiro Samson MD HEMATOLOGY ORDERABLE S [facility] [address] [place] [address] * Troponin (10/20/2022 7:30 AM EST) Troponin-T, High Sensitivity <6 <=14 ng/L [facility] Comment: This patient's troponin T concentration was [...] viable myocardium or new regional wall motion abnormality in a pattern consistent with an ischemic etiology; - Identification of a coronary thrombus by angiography or autopsy (not for type 2 or 3 MIs) Serial measurement of troponin and the change in troponin concentration over time (delta) is crucial for the diagnosis of acute myocardial infarction. Guidance on the interpretation of the new 5th Generation Troponin T values and the delta troponin value can be found in the [facility] Test Catalog Troponin - [facility] Test Catalog Reference: Fourth Doucette Definition of Myocardial Infarction. Journal of the [place] [employer] 2018;72:0337-5137 Blood 10/20/2022 7:30 AM EST 10/20/2022 7:45 AM EST Narrative Resulting Agency Comment Spec In Lab Casimiro Samson MD CHEMISTRY ORDERABLES [facility] [address] [place] [address] * Basic Metabolic Panel (non-fasting) (10/20/2022 7:30 AM EST) Glucose 105 65 - 199 mg/dL [facility] Comment:Diabetes: >=200 mg/d L plus symptoms Blood Urea Nitrogen 13 8 - 18 mg/dL [facility] Creatinine 1.09 0.70 - 1.20 mg/dL [facility] Sodium 136 135 - 145 mmol/L [facility] Potassium 4.1 3.5 - 5.0 mmol/L [facility] Comment: Please note: ??Patients with WBC >100,000 may have falsely elevated Potassium levels. ??For accurate Potassium quantification in these patients send serum separator tube (gold top) for subsequent determinations. ??Contact the Clinical Chemistry Laboratory if there are any questions. Chloride 104 98 - 107 mmol/L [facility] Carbon Dioxide 22 22 - 31 mmol/L [facility] Anion Gap 10 5 - 15 mmol/L [facility] Calcium 9.0 8.5 - 10.5 mg/dL [facility] Est Glomerular Filtration Rate 67 >=60 mL/min/1.7 3 m?? [facility] Comment: This patient's estimated GFR was calculated [...] and symptoms in addition to eGFR. Blood 10/20/2022 7:30 AM EST 10/20/2022 7:45 AM EST Narrative Resulting Agency Comment Spec In Lab Casimiro Samson MD CHEMISTRY ORDERABLES [facility] [address] [place] [address] * EKG 12 Lead (10/20/2022 7:29 AM EST) Ventricular rate 68 BPM MUSE SYSTEM Atrial Rate 68 BPM MUSE SYSTEM P-R Interval 122 ms MUSE SYSTEM QRS Duration 80 ms MUSE SYSTEM Q-T Interval 394 ms MUSE SYSTEM QTC Calculated (Bezet) 418 ms MUSE SYSTEM Calculated P Amalia 31 degrees MUSE SYSTEM Calculated R Amalia 15 degrees MUSE SYSTEM Calculated T Amalia 29 degrees MUSE SYSTEM INTERPRETATION Normal sinus rhythm Possible Anterior infarct (cited on or before 23-JUL-2022) Abnormal ECG When compared with ECG of 31-JUL-2022 10:38, Nonspecific T wave abnormality now evident in Inferior leads Confirmed by MD Juan, Adan ([id number]) on 10/22/2022 8:56:05 AM MUSE SYSTEM 10/20/2022 7:29 AM EST 10/22/2022 8:56 AM EST Casimiro Samson MD ECG ORDERABLES MUSE SYSTEM * Rapid Influenza A/B and COVID-19 by PCR ([facility]) (10/20/2022 7:26 AM EST) Influenza A PCR Not Detected Not Detected [facility] Influenza B PCR Not Detected Not Detected [facility] SARS-CoV-2 PCR Not Detected Not Detected [facility] Comment: Testing for SARS-CoV-2 (Severe acute respiratory syndrome coronavirus 2) to aid in the diagnosis of COVID-19 is performed using the Lanette SARS-CoV-2 and Influenza A/B assay on the Renae test system (Aiden QXL [employer]) as authorized by the FDA-issued Emergency Use Authorization (EUA). ??This assay is intended for in vitro Diagnostic (IVD) use with nasopharyngeal swabs collected from individuals with clinical signs and symptoms of respiratory viral infection. The assay is performed based on the instructions for use and additional guidance provided by the FDA. Testing is performed in laboratories within the [facility], certified under the Clinical Laboratory Improvement Amendments of 1988 (CLIA), 42 U.S.C. section 263a, to perform high-complexity tests. Assay performance has been verified according to clinical laboratory regulatory requirements. The test result for SARS-CoV-2 provided above should be interpreted in combination with clinical observations, patient history and epidemiological information. Assay performance characteristics have not been evaluated for asymptomatic patients. A result of Not Detected indicates that the viral RNA target is not present but does not preclude SARS-CoV-2 infection. False negative results may occur if a specimen is improperly collected, transported or handled; if amplification inhibitors are present; or if inadequate numbers of viral particles are present in the specimen. A result of Detected suggests a current or recent infection and the patient is presumed to be infected. Positive and negative predictive values for this test are highly dependent on disease prevalence. ??A result of Invalid indicates the inability to conclusively determine the presence or absence of SARS-CoV-2 or Influenza RNA in the sample which can be due to a variety of factors. ??Recollection is recommended in the case of an invalid result. CDC COVID-19 criteria for testing on human specimens and clinical management guidance information are available at the CDC COVID-19 webpage under Information for Healthcare Professionals (https://www.cdc.gov/coronavirus/2019-ncov/hcp/index.html). Additional information about this and other EUA tests can be found in provider and patient fact sheets at the following FDA website: https://www.fda.gov/medical-devices/kcywnxyhxlm-xwsjwwl-2479-edwls-21-kidsjtusu- use-a fjcyircceatyb-ldvppsd-zfpjvpc/gwalt-ajxpjphbthe-fvth Resp PCR Source [employer] [facility] Nasopharyngeal Swab 10/20/19 7:26 AM EST 10/20/2022 7:45 AM EST Comment:Symptoms->Fever / Re spiratory Symptoms Narrative Resulting Agency Comment Spec In Lab Casimiro Samson MD MICROBIOLOGY - GENER AL ORDERABLES [facility] [address] [place] [address] documented in this encounter Visit Diagnoses Diagnosis Acute cough documented in this encounter Administered Medications Inactive Administered Medications - up to 3 most recent administrations Medication Order MAR Action Action Date Dose Rate Site sodium chloride 0.9 % (flush) (BD PosiFlush Normal Saline 0.9) flush 10 mL 10 mL, Intravenous, EVERY 1 MIN PRN, Starting on 10/20/22 at 0723, Until 10/20/22 at 1121, for flushes pre / post IV fluids or blood draws as needed, Routine documented in this encounter Active and Recently Administered Medications Times are shown in EST. Scheduled Medication Order 10/18/2022 10/19/2022 10/20/2022 acetaminophen (Tylenol) tablet 650 mg 650 mg, Oral, ONCE, 1 dose, On 10/20/22 at 0739, Maximum dose of acetaminophen is 4000 mg from all sources in 24 hours. When ordered for pain, acetaminophen should be given even when other ordered pain medications are indicated. , STAT 0739 (Not Given - Pr ovider: Edna Justin RN - Reason: Patient Unable - Comment: states she took at home at 0430) ibuprofen (Motrin) tablet 400 mg 400 mg, Oral, ONCE, 1 dose, On 10/20/22 at 0739, Administer orally with milk or food to minimize GI irritation , STAT 0739 (Not Given - Pr ovider: Edna Justin RN - Reason: Patient Unable - Comment: pt stats she took at home at 0430) PRN Medication Order 10/18/2022 10/19/2022 10/20/2022 sodium chloride 0.9 % (flush) (BD PosiFlush Normal Saline 0.9) flush 10 mL 10 mL, Intravenous, EVERY 1 MIN PRN, Starting on 10/20/22 at 0723, Until 10/20/22 at 1121, for flushes pre / post IV fluids or blood draws as needed, Routine documented in this encounter Additional Health Concerns Infection Onset Date Last Indicated Resolved Time Rule Out COVID-19 10/20/2022 10/20/2022 10/20/2022 9:20 AM EST documented as of this encounter Care Teams Submarine Advisory Team Watch Officer Relationship Specialty Start Date End Date None None PCP - General 05/30/22 09/28/23 documented as of this encounter
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
--- OUTSIDE RECORDS SUMMARY | 2024-09-20 11:04 | XMS_ITS | Encounter Summary ---
Author Organization [facility] Address [facility] [place] [address] Care Team Providers Care Video Game Script Writer Name Role Phone None Primary Care Provider Unavailabl e Encounter Details Date Type Department Care Team (Late st Contact Info) Description 10/05/2022 Orders Only Obstetrics [place] [phone] [facility] DR OBSTETRICS [place] [address] Social History Tobacco Use Types Packs/Day Years [...] AM EST Routine Obstetrics [place] [phone] [facility] MATERNAL AND MEDICINE [place], [place] [id number] 09/26/2024 6:00 PM EST Appointment [facility] [place] [address] 10/16/2024 [place] [phone] [facility] DR OBSTETRICS [place] [address] 11/08/2024 10:00 AM EST Hospital Encounter Non-[place]vasive [place] [phone] Arrived documented as of this encounter Visit Diagnoses Not on filedocumented in this encounter Care Teams Video Game Script Writer Relationship Specialty Start Date End Date None None PCP - General 05/30/22 09/28/23 documented as of this encounter
--- OUTSIDE RECORDS SUMMARY | 2024-09-20 11:04 | XMS_ITS | Encounter Summary ---
Author Organization [facility] [place] [address] Care Team Providers Care Salon Supervisor Name Role Phone None Primary Care Provider Unavailabl e Encounter Details Date Type Department Care Team (Late st Contact Info) Description 03/13/2023 Telephone Cardiology at [address] [phone] Shereen Guzmán, RN Social History Tobacco Use Types Packs/Day [...] encounter Miscellaneous Notes * Telephone Encounter - Shereen Guzmán RN - 03/13/2023 9:25 AM EDT RTC to patient who reports she had [...] time, but that it feels very similar. Shereen Guzmán landscape painter Clinic at [facility] [phone] documented in this encounter Plan of Treatment Upcoming Encounters Date Type Department Care Team (Late st Contact Info) Description 09/21/2024 8:15 AM EST Routine Obstetrics and Gynecology at [place] [phone] Emili Cabrera MD [facility] [place] [address] 09/26/2024 6:00 PM EST [facility] [place] [phone] 10/16/2024 [place] [phone] Dudley Aguilar MD [facility] DR OBSTETRICS [place] [address] 11/08/2024 10:00 AM EST Hospital Encounter Non-Invasive Cardiology Lab [place] [phone] Arrived documented as of this encounter Visit Diagnoses Not on filedocumented in this encounter Care Teams Salon Supervisor Relationship Specialty Start Date End Date None None PCP - General 05/30/22 09/28/23 documented as of this encounter
--- OUTSIDE RECORDS SUMMARY | 2024-09-20 11:04 | XMS_ITS | Encounter Summary ---
Author Organization [facility] [place] [address] Care Team Providers Care Butcher Supervisor Name Role Phone None Primary Care Provider Unavailabl e Encounter Details Date Type Department Care Team (Late st Contact Info) Description 11/06/2022 Telephone Cardiology at [address] [phone] Susei Root PA [address] [address] Social History Tobacco Use Types Packs/Day Years [...] encounter Miscellaneous Notes * Telephone Encounter - Susie Root PA - 11/06/2022 2:29 PM EST Images from the original note were not included. 11/06/2022 Aniya Luque Initial Contact Date: 11/06/2022 Initial contact time: 2:47 PM Referring Provider: Dr. Bejarano Patient Location: [facility] Past Medical History: ?? Hx of Cardiac arrest, s/p defibrillator ?? 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 Hx of Depression ?? Hx of Asthma ?? Hx of borderline Personality disorder ?? GERD ?? Smoking daily Presenting Symptoms per OSH: 37 Y O with multiple medical problems including a hx of cardiac arrest, s/p defibrillator, hx of depression, hx of asthma, hx of borderline personality, not preg, GERD, and hx of smoking presents to the ER with hearburn. Seems very drowsy per ER Doc. Urine tox screen is pending. Trend biomarkers,bedside Echo, CXR was fine, and Covid is getting checked. Currently her vitals are: HR 66, RR 14, BP 111/74, and O2 is 100%. EKG showed NSR. Heartburn feels like prior to her cardiac arrest. Meds: ASA, nitro prn. Heartburn meds did help at home per report. No leg swelling or chest pain. It is a heart burn that goes towards her back. Cath a year ago: Hemodynamics: Right Heart Pressures Resting: Syst Diast [...] Successful placement of central venous cooling catheter. Pertinent Diagnostic Findings: First trop neg Assessment: Unexplained Heart burn, trending biomarkers, getting urine tox screen, stable Plan: Trend biomarkers, await urine tox screen results. Bedside Echo if possible. Monitor on telemetry. Follow labs. Above recommendations were based on my discussion with Dr. Bejarano; I have not personally interviewed or examined this patient. Advised to call the transfer center back with any changes in the patient condition. I have not personally reviewed EKGs. EDEN Campbell 11/06/2022 Pager [phone] 11/06/2022 documented in this encounter Plan of Treatment Upcoming Encounters Date Type Department Care Team (Late st Contact Info) Description 09/21/2024 8:15 AM EST Routine Obstetrics [place] [address] Emili Cabrera MD [facility] MATERNAL [place] [address] 09/26/2024 6:00 PM EST Appointment [facility] [place] [address] 10/16/2024 [place] [address] Dudley Aguilar MD [facility] OBSTETRICS [place] [address] 11/08/2024 10:00 AM EST Hospital Encounter [place] [phone] Arrived documented as of this encounter Visit Diagnoses Not on filedocumented in this encounter Care Teams Butcher Supervisor Relationship Specialty Start Date End Date None None PCP - General 05/30/22 09/28/23 documented as of this encounter
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
--- OUTSIDE RECORDS SUMMARY | 2024-09-20 11:04 | XMS_ITS | Encounter Summary ---
Author Organization [facility] [place] [address] Care Team Providers Care Information Analyst Name Role Phone None Primary Care Provider Unavailabl e Encounter Details Date Type Department Care Team (Late st Contact Info) Description 12/12/2022 Telephone Obstetrics [place] [phone] Britany Andrade Social History Tobacco Use Types Packs/Day Years [...] AM EST Routine Obstetrics [place] [phone] Emili Cabrera MD [facility] [place] [address] 09/26/2024 6:00 PM EST Appointment [facility] [place] [address] 10/16/2024 Hospital Encounter [place] [address] Dudley Aguilar MD [facility] OBSTETRICS [place] [address] 11/08/2024 10:00 AM EST Hospital Encounter Non-[place] [address] Arrived documented as of this encounter Visit Diagnoses Not on filedocumented in this encounter Care Teams Information Analyst Relationship Specialty Start Date End Date None None PCP - General 05/30/22 09/28/23 documented as of this encounter
--- OUTSIDE RECORDS SUMMARY | 2024-09-20 11:04 | XMS_ITS | Encounter Summary ---
Author Organization [facility] Address [facility] [place] [address] Care Team Providers Care Nipple Machine Operator Name Role Phone None Primary Care Provider Unavailabl e Encounter Details Date Type Department Care Team (Late st Contact Info) Description 02/20/2023 Interpretation Only [address] [phone] Eddie Light MD [address] [place] [address] Social History Tobacco Use Types Packs/Day Years [...] Routine Obstetrics [place] [address] Emili Cabrera MD [facility] [place] [address] 09/26/2024 6:00 PM EST Appointment [facility] [place] [address] 10/16/2024 [place] [address] Dudley Aguilar MD [facility] DR OBSTETRICS AND GYNECOLOGY [place] [id number] 11/08/2024 10:00 AM EST Hospital Encounter Non-[place] [address] Arrived documented as of this encounter Procedures Procedure Name Priority Date/Time Associated Diagnosis Comments XR CHEST ONE VIEW STAT 02/20/2023 5:5 5 PM EDT documented in this encounter Results * XR Chest One View (02/20/2023 5:55 PM EDT) PT CLASS E RAD ADMITDTTM RAD PT RAD INFO [id number]^L YONS^EDDIE ^G DH RAD EXAM DESC XCXR1^XR CHEST 1 VIEW^RIS RAD Anatomical Region Laterality Modality Chest N/A Radiographic Ewa ging Impressions 02/20/2023 6:08 PM EDT No acute cardiopulmonary abnormality. Thank you for letting us participate in the care of this patient. ??If you are a health care provider and have any questions regarding this report, please contact the number below. ??For patients who have questions please contact the health senior care specialist that requested your imaging first. ? Electronically signed by: Monie Becerril MD, [facility] ([phone]), at 02/20/2023 6:08 PM Narrative 02/20/2023 6:08 PM EDT EXAMINATION: XR CHEST 1 VIEW CLINICAL HISTORY: Chest Pain TECHNIQUE: AP portable upright chest radiograph COMPARISON: Radiographs November 27, 2019; July 02, 2022 and October 20, 2022 FINDINGS: AICD with single lead is intact in unchanged position. Lungs are clear without pleural effusion or pneumothorax. Cardiomediastinal contours and pulmonary vasculature are normal. No free air below the diaphragm or focal extrathoracic soft tissue abnormality. No fracture. Procedure Note Monie Becerril MD - 02/20/2023 EXAMINATION: XR CHEST 1 VIEW CLINICAL HISTORY: Chest Pain TECHNIQUE: AP portable upright chest radiograph COMPARISON: Radiographs November 27, 2019; July 02, 2022 and October 20, 2022 FINDINGS: AICD with single lead is intact in unchanged position. Lungs are clear without pleural effusion or pneumothorax. Cardiomediastinal contours and pulmonary vasculature are normal. No free air below the diaphragm or focal extrathoracic soft tissueabnormality. No fracture. IMPRESSION No acute cardiopulmonary abnormality. Thank you for letting us participate in the care of this patient. If youare a health care provider and have any questions regarding this report,please contact the number below. For patients who have questions please contactthe health senior care specialist that requested your imaging first. Eddie Light MD IMG DX ORDERABLES documented in this encounter Visit Diagnoses Not on filedocumented in this encounter Care Teams Nipple Machine Operator Relationship Specialty Start Date End Date None None PCP - General 05/30/22 09/28/23 documented as of this encounter
--- OUTSIDE RECORDS SUMMARY | 2024-09-20 11:04 | XMS_ITS | Encounter Summary ---
[facility] [place] [address] Care Team Providers Care Sports Equipment Repairer Name Role Phone None Primary Care Provider Unavailabl e Encounter Details Date Type Department Care Team (Latest Contact Info) Description 02/17/2023 10:00 AM EDT - 02/17/2023 11:59 PM EDT Hospital Encounter [place] [address] Discharge Disposition: Home Social History Tobacco Use [...] each 07/29/2022 fluticasone propionate (Flonase) 50 mcg/actuation [place], SuspensionIndications :allergic rhinitis 1 spray by Each [...] AM EST Routine Obstetrics [place] [phone] Emili Cabrera MD [facility] [place] [address] 09/26/2024 6:00 PM EST Appointment [facility] [place] [phone] 10/16/2024 Hospital [place] [phone] Dudley Aguilar MD [facility] OBSTETRICS [place] [address] 11/08/2024 10:00 AM EST Hospital Encounter [place] [phone] Arrived documented as of this encounter Procedures Procedure Name Priority Date/Time Associated Diagnosis Comments PRO ICD INTERROGATION REMOTE UP TO 90 DAYS Routine 12/24/2022 11:06 AM EST documented in this encounter Results * Cardiac Device Check - Remote (12/24/2022 11:06 AM EST) Anatomical Region Laterality Modality Other 12/24/2022 11:0 6 AM EST Isai Yap MD IMPLANTABLE CARDIAC DEVICE documented in this encounter Visit Diagnoses Not on filedocumented in this encounter Care Teams Sports Equipment Repairer Relationship Specialty Start Date End Date None None PCP - General 05/30/22 09/28/23 documented as of this encounter
--- OUTSIDE RECORDS SUMMARY | 2024-09-20 11:04 | XMS_ITS | Encounter Summary ---
Author Organization [facility] [place] [address] Care Team Providers Care Teacher Of Family And Consumer Science Name Role Phone None Primary Care Provider Unavailabl e Reason for Visit * Reason Comments Abdominal Pain Menorrhagia Encounter Details Date Type Department Care Team (Late st Contact Info) Description 10/05/2022 8:41 AM EST - 10/05/2022 1:10 PM EST [place] [address] Abnormal vaginal bleeding Discharge Disposition: Home Social History Tobacco Use [...] Sign Reading Time Taken Comments Blood Pressure 132/85 10/05/2022 9:30 AM EST Pulse 54 10/05/2022 8:49 AM EST Temperature 37.2 ??C (99 ??F) 10/05/2022 8:49 AM EST Respiratory Rate 16 10/05/2022 8:49 AM EST Oxygen Saturation 99% 10/05/2022 9:30 AM EST Inhaled Oxygen Concentration - - Weight 70 kg (154 lb 5.2 oz) 10/05/2022 8:49 AM EST Height - - Body Mass Index 26.49 07/25/2022 11:33 AM EDT documented in this encounter Discharge Instructions * Discharge Instructions* Darron Dong PA - 10/05/2022 12:07 PM EST You were seen in the emergency department for vaginal bleeding. Your lab work was overall reassuring. You were evaluated by [facility] who recommended a hormone tablet. Please take this medication as prescribed. Follow-up with [facility] in their clinic for reevaluation. Return to the emergency department if you have worsening abdominal pain, worsening bleeding (bleeding through more than 2 pads per hourfor 2 consecutive hours) or if you have any other questions or concerns. * Attachments The following attachments cannot be sent through Care Everywhere. * AUB (Abnormal Uterine Bleeding) (Nicaraguan) documented in this encounter Medications at Time of Discharge Medication Sig Dispensed Refills Start Date End Date acetaminophen (Tylenol) 325 mg Tablet Take 3 tablets by mouth every 6 hours as needed for Pain. 30 tablet 1 07/29/2022 polyethylene glycoL (Miralax) 17 gram Powder in Packet Take 17 g by mouth daily. 14 each 07/29/2022 fluticasone propionate (Flonase) 50 mcg/actuation [place], SuspensionIndications :allergic rhinitis 1 spray by Each [...] as of this encounter ED Notes * Darron Dong PA - 10/05/2022 8:52 AM EST ED Provider Note HPI: Aniya Luque is a 37 y.o. female with a recent vaginal delivery on 07/26 who presents to the Emergency Department with lower pelvic pain and vaginal bleeding. She states she had some bleeding recently, but this stopped. She thought she could have been when this bleeding started, but reports a negative test by her doctor on . However, over the past 2-3 days she started bleeding again and last night the bleeding became heavy. She passed multiple large clots last night and went through about 30 panty liners last night. She admits to some light headiness and lower abdominal cramping. She states that the abdominal pain feels like her normal menstrual cramping, but the cramping is worse. She denies any associated nausea, vomiting or changes on bowel/bladder habits. Review of Systems Pertinent positives and negatives are included in the HPI, otherwise at least ten systems were reviewed and negative. Past Medical and Surgical Histories, Social History, Medications, Allergies were reviewed in the chart. Vitals: ED Triage Vitals BP: n/a Pulse: n/a Resp: n/a Temp: n/a Temp src: n/a SpO2: n/a O2 Device: n/a O2 Flow Rate (L/min): n/a Physical Exam Constitutional: Appears well-developed and well-nourished. No distress. Head: Normocephalic and atraumatic. Eyes: EOM are normal. Neck: Normal range of motion. Cardiovascular: Normal rate Pulmonary/Chest: Effort normal Abdominal: Soft. Exhibits no distension. There is mild diffuse lower abd tenderness. Musculoskeletal: Exhibits no edema or tenderness. Neurological: Alert and oriented Skin: Skin is warm and dry. ED Course: I have reviewed labs and imaging, images and available reports, and they are significant for: CBC: Unremarkable stable H&H/improved from prior BMP: Unremarkable Beta-hCG negative No orders to display Procedures Assessment and Plan: 37 y.o. female s/p uncomplicated vaginal delivery 07/26 presents to the emergency department with vaginal bleeding and lower pelvic pain that feels like her previous menstrual cramping, but worse. Patient's lab work is overall very reassuring. Patient is not . Patient was evaluated by OB andwe will start her on hormone therapy and follow-up with her in the clinic. We discussed return precautions alcohol increased bleeding, lightheadedness, dizziness and other systolic symptoms. Patient agrees to return emergency department for signs get worse. Patient agrees with follow-up plan. The visit findings, diagnosis, and care plan were discussed with the patient. The diagnosis and care plans discussions were outlined in the discharge instructions. The patient expressed understanding of the details of the visit, the return precautions and that she should return to the ER at any time for worsening symptoms, new symptoms, or other concerns. she agrees with thefollow- up plan. Darron Dong PA 10/05/22 1253 documented in this encounter Miscellaneous Notes * Consult Note - Johan Rangel MD - 10/05/2022 12:04 PM EST Gynecology Service - Consultation Note Date of Consultation: 10/05/2022 Consult Service: Gynecology Consult Service Responsible Attending: Dr. Aguilar Place of Service: Emergency Department Reason for Consult: We are seeing Aniya Luque at the request of the Emergency Department for the evaluation of heavy vaginal bleeding. I have reviewed the available records, interviewed, and examined the patient. Active Problem List: There are no hospital problems to display for this patient. Active Non-Hospital Problems Diagnosis ??? Chronic hypertension in ??? Encounter for induction of labor ??? Subcutaneous defibrillator implanted 11/12/2021 ??? Cigarette smoker ??? Coronary artery vasospasm ??? *History of COVID-19 ??? Cardiac arrest ??? Gastroesophageal reflux disease ??? Borderline personality disorder ??? Post-traumatic stress disorder, chronic ??? Anxiety disorder, unspecified ??? Chest pain ??? Skin disease ??? Depression ??? Asthma ??? Hypertension ??? Tachycardia ??? Recurrent major depressive episodes, moderate History of Present Illness: Aniya Luque is a 37 y.o. with a history of cardiac arrest in the setting of presumed severe coronary vasospasm during COVID infection now with ICD in place, cHTN, active smoker. She presents to the Emergency Department for evaluation of heavy vaginal bleeding. Aniya is from an on 07/26/22. She has been recovering well, not . Sheis not taking any hormonal medication or using control. Reports that her first period started2 days ago and has been profuse. She reports that she cannot count the number of pads because sheis changing pads before she bleeds through them. She is not passing large blood clots, but did notice smaller clots. She also reports significant pelvic cramping and suprapubic pain. She did develop fatigue and dizziness this morning prompting her to seek evaluation in the ED. Pelvic cramping has been mild, taking ibuprofen with relief. Starting to wrap around to her back as well. She also endorses low grade nausea and diarrhea. No fevers, myalgias. No sick contacts at home. No dysuria. In the ED, she has been hemodynamically stable without tachycardia or hypotension. Hgb 14.0. Reports that she continues to have vaginal bleeding and is having to wear a diaper. Reports a history of irregular, painful, occasionally heavy periods prior to . Does not desire future . Sexually active with one male partner. Negative STI testing in , butis not certain whether her partner has other partners. Review of Systems: Review of Systems Constitutional: Negative. Respiratory: Negative for cough, chest tightness and shortness of breath. Cardiovascular: Negative for chest pain, palpitations and leg swelling. Gastrointestinal: Positive for abdominal pain, diarrhea and nausea. Negative for constipation. Genitourinary: Positive for menstrual problem and vaginal bleeding. Negative for vaginal discharge. Vineyard Tender History: - Denies history of STIs - Uncertain timing of last pap smear, before . Reports that she had a colposcopy done. - Was on Depo for control for years in the past that worked well for her. She then stopped this and developed heavy bleeding. Past Medical and Surgical History: Past Medical History: Diagnosis Date ??? *History of COVID-19 11/05/2021 ??? Anorexia ??? Anxiety 08/03/2014 ??? Asthma 08/03/2014 ??? Flaherty's palsy ??? Chest pain 01/17/2016 ETT 2013- negative ST III Echo 2013 ??Normal LV size and function, trivial TR, mild PI ??? 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 Depression ??? Headache ??? Hypertension 08/03/2014 Past Surgical History: Procedure Laterality Date ??? DILATION AND CURETTAGE OF UTERUS x2 ??? PRO UPPER GI ENDOSCOPY, DIAGNOSTIC N/A 01/09/2021 EGD, UPPER GI ENDOSCOPY performed by Dudley Alva MD at [facility] ENDOSCOPY Past Obstetric History: OB History Para Term AB Living 5 4 4 0 1 4 SAB IAB Ectopic Multiple Live Births 1 0 0 0 4 Medications: No current facility-administered medications for this encounter. Current Outpatient Medications: ??? norethindrone (MICRONOR) 0.35 mg Tablet, Take 1 tablet by mouth daily., Disp: 84 tablet, Rfl: 5 ??? magnesium oxide (Mag-Ox) 400 mg (241.3 mg magnesium) Tablet, Take 1 tablet by mouth daily., Disp: 30 tablet, Rfl: 12 ??? acetaminophen (Tylenol) 325 mg Tablet, Take 3 tablets by mouth every 6 hours as needed for Pain., Disp: 30 tablet, Rfl: 1 ??? famotidine (Pepcid) 40 mg Tablet, Take 1 tablet by mouth 2 times daily., Disp: 60 tablet, Rfl: 5 ??? ibuprofen (Advil) 600 mg Tablet, Take 1 tablet by mouth every 6 hours., Disp: 30 tablet, Rfl: 12 ??? nicotine (Nicoderm CQ) 14 mg/24 hr Patch 24 hr, Change 1 patch on the skin daily., Disp: 28 patch, Rfl: 0 ??? polyethylene glycoL (Miralax) 17 gram Powder in Packet, Take 17 g by mouth daily., Disp: 14 each, Rfl: 0 ??? nitroGLYcerin (Nitrostat) 0.4 mg Tablet, Sublingual, Place 1 tablet under the tongue every 5 minutes as needed for Chest pain., Disp: 30 tablet, Rfl: 1 ??? Norvasc 2.5 mg Tablet, Take 1 tablet by mouth 2 times daily. Take 1 tablet in the morning and 2tablets at night., Disp: 180 tablet, Rfl: 1 ??? lidocaine (Xylocaine) 2 % Solution, TAKE 10 ML BY MOUTH EVERY 8 HOURS WITH ANTACID, Disp: , Rfl: ??? Antacid-Antigas 200-200-20 mg/5 mL Suspension, COMBINE 10 MLS WITH LIDOCAINE ORALLY THREE TIMESA DAY, Disp: , Rfl: ??? clonazePAM (KlonoPIN) 1 mg Tablet, Take 1 mg by mouth 3 times daily as needed., Disp: , Rfl: ??? fluticasone propionate (Flonase) 50 mcg/actuation [place], Suspension, 1 spray by Each Nare routenightly. Substitute OTC if needed Indications: inflammation of the nose due to an allergy, Disp: 16g, Rfl: 1 ??? vitamin C 500 mg Tablet, TAKE ONE TABLET BY MOUTH EVERY DAY, Disp: , Rfl: ??? cetirizine (ZyrTEC) 10 mg Tablet, TAKE ONE TABLET BY MOUTH EVERY DAY, Disp: , Rfl: ??? fluticasone propionate (Flovent HFA) 110 mcg/actuation HFA Aerosol Inhaler, Every 12 hours., Disp: , Rfl: ??? ipratropium-albuteroL (Duoneb) 0.5 mg-3 mg(2.5 mg base)/3 mL Solution for Nebulization, Every 6hours., Disp: , Rfl: ??? sucralfate (Carafate) 1 gram Tablet, TAKE 1 TABLET BY MOUTH TWICE DAILY ON AN EMPTY STOMACH, Disp: , Rfl: ??? albuterol 90 mcg/actuation HFA Aerosol Inhaler, Inhale 2 puffs into the lungs every 4 hours as needed for Wheezing. Use with spacer, Disp: , Rfl: ??? calcium carbonate (TUMS) 200 mg calcium (500 mg) Tablet, Chewable, Take 1 tablet by mouth as needed., Disp: , Rfl: Prior To Admission Medications: (Not in a hospital admission) Allergies: Allergies Allergen Reactions ??? Augmentin [Amoxicillin-Pot Clavulanate] Rash Unsure if allergic ??? Ipratropium Other (See Comments) ??? Morphine Other (See Comments) Cannot recall ??? Penicillins Rash Patient denies allergy. Take amoxicillin w/o reactions. ??? Seroquel [Quetiapine] Other (See Comments) Made head feel loopy. Family History: Family History Problem Relation Age of Onset ??? Migraines Mother ??? Cancer Mother Social History and Habits: Social History Socioeconomic History ??? Marital status: [...] on file Housing Stability: Not on file Physical Exam: Last set of vitals and range over past 24 hours: Last value Range last 24 hrs Temperature Temp: 37.2 ??C (99 ??F) Temp: [37.2 ??C (99 ??F)] Heart Rate Heart Rate: 54 Heart Rate: [54] Blood Pressure BP: 132/85 BP: (132-138)/(85-92) Respiratory Rate Resp: 16 Resp: [16] SpO2 SpO2: 99 % SpO2: [99 %] Physical Exam: Vitals: 10/05/22 0849 10/05/22 0930 BP: (!) 138/92 132/85 Pulse: 54 Resp: 16 Temp: 37.2 ??C (99 ??F) TempSrc: Oral SpO2: 99% 99% Weight: 70 kg (154 lb 5.2 oz) Body mass index is 26.49 kg/m??. General: Well developed female, NAD, AOx3. Anxious. Abdomen: soft, nondistended, nontender in all four quadrants and epigastric region, mild suprapubictenderness. Pelvic: Normal appearing external genitalia without lesions or abnormalities. Blood notable on labia and inner thighs. Vaginal vault with about 10cc of bright red clot, cleared with scopette. Multiparous cervix with small amount of bright red bleeding extruding from the os. Cervix without lesions. GC/CT obtained. Bimanual notable for small retroverted uterus, no cervical motion tenderness. No adnexal masses or tenderness. Back: no CVA tenderness Extremities: No calf tenderness or lower ext edema Laboratory (Last 24 Hours): Recent Results (from the past 24 hour(s)) Basic Metabolic Panel (non-fasting) Result Value Ref Range Glucose Lvl 81 65 - 199 mg/dL BUN 12 8 - 18 mg/dL Creatinine 0.86 0.70 - 1.20 mg/dL Sodium 141 135 - 145 mmol/L Potassium 4.1 3.5 - 5.0 mmol/L Chloride 105 98 - 107 mmol/L CO2 25 22 - 31 mmol/L Anion Gap 11 5 - 15 mmol/L Calcium 9.5 8.5 - 10.5 mg/dL Estimated GFR 89 >=60 mL/min/1.73 m?? Beta HCG, quantitative Result Value Ref Range Beta hCG Quant <1 mlU/ML ABO/Rh Typing Result Value Ref Range ABORh Type O Pos Antibody screen Result Value Ref Range Ab Screen Interp Negative Expires at 2359 on: 10/08/2022 ABORH Recheck Status Result Value Ref Range ABORH Type Recheck Completed Hemogram Result Value Ref Range WBC 11.0 (H) 4.0 - 9.5 x10(3)/mcL RBC 4.70 4.00 - 5.21 x10(6)/mcL Hemoglobin 14.0 11.7 - 15.5 g/dL Hematocrit 42.4 35.7 - 45.8 % MCV 90.2 82.6 - 94.4 fL MCH 29.8 27.1 - 32.0 pg MCHC 33.0 31.7 - 35.0 g/dL Platelets 247 145 - 357 x10(3)/mcL RDWSD 44.7 37.0 - 46.0 fL RDWCV 13.4 11.5 - 14.1 % MPV 11.9 7.6 - 12.9 fL nRBC % Auto 0.0 % nRBC Abs Auto 0.000 0.000 - 0.000 x10(3)/mcL Differential, Automated Result Value Ref Range Neutrophils % 64.0 % Neutr Abs (ANC) 7.05 (H) 1.70 - 6.10 x10(3)/mcL Lymphocytes % 24.5 % Lymphocytes Abs 2.7 0.9 - 3.2 x10(3)/mcL Monocytes % 5.2 % Monocyte Abs 0.6 0.3 - 0.9 x10(3)/mcL Eosinophils % 5.4 % Eosinophils Abs 0.6 (H) 0.0 - 0.4 x10(3)/mcL Basophils % 0.6 % Basophils Abs 0.1 0.0 - 0.1 x10(3)/mcL Immature Gran % 0.30 % Jena Gran Abs 0.03 0.00 - 0.04 x10(3)/mcL Gold Tube HOLD Result Value Ref Range Gold Hold Sample in lab. Type and Screen Validity Result Value Ref Range T&S only valid at [facility] Hosp Urinalysis with reflex Culture Specimen: Urine Result Value Ref Range Glucose UA Negative Negative mg/dL Protein UA 30 (A) Negative mg/dL Bilirubin UA Negative Negative mg/dL Urobilinogen UA Normal Normal mg/dL pH UA 6.0 5.0 - 8.0 Blood UA Large (A) Negative mg/dL Ketones UA Negative Negative mg/dL Nitrite UA Negative Negative Leukocytes UA Small (A) Negative mcL Appearance UA Turbid (A) Clear Spec Elmer UA 1.021 1.005 - 1.030 Color UA Red (A) Yellow Culture Reflexed Yes Urinalysis Microscopic Exam Result Value Ref Range RBC UA >100 (H) 0 - 4 /HPF WBC UA 10 (H) 0 - 5 /HPF Bacteria UA Rare (A) None /HPF Squam Epith UA 3 <=4 /HPF Hyaline Cast UA 3 (H) 0 - 2 /LPF Assessment: Aniya Luque is a 37 y.o. who is approximately 8 weeks with new onset heavy menstrual bleeding. Negative BHcg. Patient is hemodynamically stable with Hgb 14.0. Asymptomatic for anemia. Pelvic exam unremarkable,uterus normal in size and cervix without lesions.We discussed likely etiology to be heavy menses inthe setting of recent anovulatory cycles . Cannot rule out structural etiologies including fibroids, polyp. GC/CT collected to rule out concurrent infection. Low suspicion for endometritis or PID given unremarkable bimanual exam. Not a candidate for estrogen-containing contraception due to cHTN and current tobacco use. We discussed treatment options for heavy menstrual bleeding including progesterone-only oral contraception, LARC method, Depo. Patient does desire concurrent contraception as well. In the interim, will plan to initiate POPs. Discussed with patient that the mini-pill (norethindrone 0.35mg) has to be taken stuart tight window, and has low rates of amenorrhea, so is generally not a great choice for menstrual suppression but is a reasonable option prior to outpatient follow-up. Given stability, appropriate for discharge on POPs. Will plan close interval outpatient follow-up: needs cervical cancer screening at follow-up. Will also plan TVUS at that time to rule out structural etiologies. May consider EMB to r/o hyperplasia or malignancy if heavy bleeding persists, althoughthis is less likely particularly recently . Recommendations: ?? Micronor sent to pharmacy- advised patient to take at the same time daily. ?? Advised ibuprofen 800mg q8 hours for dysmenorrhea ?? Further discussion for contraception at upcoming follow-up visit. ?? Follow-up gonorrhea/chlamydia ?? Plan close interval follow-up visit with outpatient ultrasound visit beforehand ?? Needs pap at follow-up visit Patient seen and discussed with Dr. Aguilar, attending OBGYN. Recommendations are above, please page if further consultation required. Johan Rangel MD PGY-3 10/05/2022 [phone] Associated attestation - Dudley Aguilar MD - 10/07/2022 4:25 PM EST I have seen the patient and reviewed Dr. Rangel's above history and I agree with the details as written. The assessment and plan were formulated in discussion with me and I agree with them as documented. Dudley Aguilar MD documented in this encounter Plan of Treatment Upcoming Encounters Date Type Department Care Team (Late st Contact Info) Description 09/21/2024 8:15 AM EST Routine Obstetrics [place] [id number] Emili Cabrera MD [facility] [place] [address] 09/26/2024 6:00 PM EST Appointment [facility] [place] [address] 10/16/2024 Hospital Encounter [facility] [place] [phone] Dudley Aguilar MD [facility] DR OBSTET[place] [address] 11/08/2024 10:00 AM EST Hospital Encounter Non-Invasive Cardiology Lab [facility] [address] Arrived documented as of this encounter Procedures Procedure Name Priority Date/Time Associated Diagnosis Comments HC TRICHOMONAS GENE AMPLIFICATION STAT 10/05/2022 12:39 PM EST CHLAMYDIA GENE AMP STAT 10/05/2022 12 :39 PM EST HC GC GENE AMP STAT 10/05/2022 12:39 PM EST URINALYSIS MICROSCOPIC EXAM STAT 10/05/2022 10:40 AM EST URINALYSIS WITH REFLEX CULTURE STAT 10/05/2022 10:40 AM EST URINE CULTURE STAT 10/05/2022 10:40 AM EST TYPE AND SCREEN VALIDITY STAT 10/05/2022 9:20 AM EST ABORH RECHECK STATUS STAT 10/05/2022 9:20 AM EST HEMOGRAM STAT 10/05/2022 9:20 AM EST DIFFERENTIAL, AUTOMATED STAT 10/05/2022 9:20 AM EST GOLD TUBE HOLD STAT 10/05/2022 9:20 AM EST ABO/RH TYPING STAT 10/05/2022 9:20 AM EST HC CBC,PLT & AUTO DIFF STAT 9:20 AM EST ANTIBODY SCREEN STAT 10/05/2022 9:20 AM EST HC ANTIBODY DETECTION,CAPTURE-R STAT 10/05/2022 9:20 AM EST HC CHORIONIC GONADOTROPINS, SERUM STAT 10/05/2022 9:20 AM EST BASIC METABOLIC PANEL STAT 10/05/2022 9:20 AM EST documented in this encounter Results * Chlamydia Gene Amp ([facility]/CGP/APD/NLH) (10/05/2022 12:39 PM EST) Chlamydia Gene Amp Negative Negative [facility] Comment: The only FDA approved specimen types for this assay are cervical, vaginal, urethral and urine. Non-FDA approved sources are eye, throat and rectal and have been internally validated. Chlm Source Vaginal [facility] Vaginal Micro Spec / Unknown 10/05/2022 12:39 PM EST 10/05/2022 3:38 PM EST Narrative Resulting Agency Comment Spec In Lab Darron HARMON MICROBIOLOGY - GENER AL ORDERABLES [facility] [place] [address] * Trichomonas Gene Amp ([facility]/CGP/APD/NLH) Vaginal (10/05/2022 12:39 PM EST) Trich Gene Amp Negative Negative [facility] Comment:The only FDA approve d specimen types for this assay are cervix and vaginal. Trich Source Vaginal [facility] Vaginal 10/05/2022 12:3 9 PM EST 10/05/2022 3:38 PM EST Narrative Resulting Agency Comment Spec In Lab Dandy So MD MICROBIOLOGY - GENER AL ORDERABLES [facility] [place] [address] * GC Gene Amp ([facility]/CGP/APD/NLH) Vaginal (10/05/2022 12:39 PM EST) Pathologist [facility] GC Gene Amp Negative Negative [facility] Comment: The only FDA approved specimen types for this assay are cervical, vaginal, urethral and urine. Non-FDA approved sources are eye, throat and rectal and have been internally validated. GC Source Vaginal [facility] Vaginal 10/05/2022 12:3 9 PM EST 10/05/2022 3:38 PM EST Narrative Resulting Agency Comment Spec In Lab Dandy So MD MICROBIOLOGY - GENER AL ORDERABLES Performing Organization Address City/[facility]/ZIP Co de Phone Number [facility] [place] [address] * (ABNORMAL) Urine culture (10/05/2022 10:40 AM EST) [facility] Urine Culture 10,000-49,000 cfu/ml mixed mucosal al Note: Culture shows multiple bacterial species suggesting mucosal contamination. If symptoms continue to indicate urinary tract infection, submit a new specimen. (A) [facility] Urine 10/05/2022 10:4 0 AM EST 10/05/2022 12:02 PM EST Narrative Resulting Agency Comment Spec In Lab Darron HARMON MICROBIOLOGY - GENER AL ORDERABLES Performing Organization Address City/[facility] Co de Phone Number [facility] [place] [address] * (ABNORMAL) Urinalysis Microscopic Exam (10/05/2022 10:40 AM EST) Pathologist [facility] RBC, Urine >100(H) 0 - 4 /HPF [facility] WBC, Urine 10(H) 0 - 5 /HPF [facility] Bacteria, Urine Rare(A) None /HPF [facility] Comment:Interpret with cauti on, manual microscopic results are from an unspun specimen Squamous Epithelial Cells Raw Data, Urine 3 <=4 /HPF [facility] Hyaline Casts, Urine 3(H) 0 - 2 /LPF [facility] Urine 10/05/2022 10:4 0 AM EST 10/05/2022 11:20 AM EST Narrative Resulting Agency Comment Spec In Lab Darron HARMON URINE ORDERABLES Performing Organization Address [facility] Co de Phone Number [facility] [place] [address] * (ABNORMAL) Urinalysis with reflex Culture (10/05/2022 10:40 AM EST) Glucose, Urine Dipstick Negative Negative mg/dL [facility] Protein, Urine Dipstick 30(A) Negative mg/dL [facility] Bilirubin, Urine Dipstick Negative Negative mg/dL [facility] Comment: Clinical correlation required for positive Urine Bilirubin results as false positive may occur with some drugs and drug related products. If a false positive is suspected a serum total bilirubin should be considered if clinically indicated. Urobilinogen, Urine Dipstick Normal Normal mg/dL [facility] pH, Urn (dipstick) 6.0 5.0 - 8.0 [facility] Blood, Urine Dipstick Large(A) Negative mg/dL [facility] [facility] Ketone, Urine Dipstick Negative Negative mg/dL [facility] Nitrite, Urine Dipstick Negative Negative [facility] Leukocytes, Urine Dipstick Small(A) Negative mcL [facility] Appearance, Urine Dipstick Turbid(A) Clear [facility] Specific Elmer Urine Automated 1.021 1.005 - 1.030 [facility] Color, Urine Dipstick Red(A) Yellow [facility] Reflex to Culture Yes [facility] Urine 10/05/2022 10:4 0 AM EST 10/05/2022 11:20 AM EST Narrative Resulting Agency Comment Spec In Lab Dandy So MD URINE ORDERABLES Performing Organization Address City/[facility] Co de Phone Number [facility] [place] [address] * Type and Screen Validity (10/05/2022 9:20 AM EST) T&S only valid at [facility] Comment:This Type and Screen result is only valid at the [facility] Blood 10/05/2022 9:20 AM EST 10/05/2022 10:08 AM EST Narrative Resulting Agency Comment Spec In Lab Darron HARMON BLOOD BANK LAB ORDER SUNDEEP Performing Organization Address City/[facility]/[place] [address] * Gold Tube HOLD (10/05/2022 9:20 AM EST) Gold Hold Sample in lab. [facility] Blood Venous Draw / Unknown 10/05/2022 9:20 AM EST 10/05/2022 10:12 AM EST Darron HARMON CHEMISTRY ORDERABLES Performing Organization Address [facility] [place] [address] * (ABNORMAL) Differential, Automated (10/05/2022 9:20 AM EST) Neutrophil % 64.0 % [facility] Neutrophil Absolute 7.05(H) 1.70 - 6.10 x10(3)/mc L [facility] Lymph % 24.5 % [facility] Lymphocytes Abs 2.7 0.9 - 3.2 x10(3)/mc L [facility] Monocyte % 5.2 % [facility] Monocyte Abs 0.6 0.3 - 0.9 x10(3)/mc L [facility] Eos % 5.4 % [facility] Eosinophils Abs 0.6(H) 0.0 - 0.4 x10(3)/mc L [facility] Basophil % 0.6 % [facility] Baso Absolute 0.1 0.0 - 0.1 x10(3)/mc L [facility] Immature Gran % 0.30 % [facility] Comment: Immature granulocytes(IG's)percentage and absolute count will include metamyelocytes, myelocytes, and promyelocytes. Blood smears from CBCs yielding IG's will be scanned manually for concordance. If this scan disagrees with the automated IG or if promyelocytes are noted, a manual differential will be performed. Immature Gran Absolute 0.03 0.00 - 0.04 x10(3)/mc L [facility] Blood 10/05/2022 9:20 AM EST 10/05/2022 10:12 AM EST Narrative Resulting Agency Comment Spec In Lab Darron HARMON HEMATOLOGY ORDERABLE S Performing Organization Address City/[facility] Co de Phone Number [facility] [place] [address] * (ABNORMAL) Hemogram (10/05/2022 9:20 AM EST) White Blood Cell 11.0(H) 4.0 - 9.5 x10(3)/mc L [facility] Red Blood Cell 4.70 4.00 - 5.21 x10(6)/mc L [facility] Hemoglobin 14.0 11.7 - 15.5 g/dL [facility] Hematocrit 42.4 35.7 - 45.8 % [facility] Mean Cell Volume 90.2 82.6 - 94.4 fL [facility] Mean Cell Hemoglobin 29.8 27.1 - 32.0 pg [facility] Mean Cell Hemoglobin Concentration 33.0 31.7 - 35.0 g/dL [facility] Platelet 247 145 - 357 x10(3)/mc L [facility] RDW Standard Deviation 44.7 37.0 - 46.0 fL [facility] RDW coefficient of variation 13.4 11.5 - 14.1 % [facility] Mean Platelet Volume 11.9 7.6 - 12.[address] [facility] NRBC% auto 0.0 % [facility] NRBC Absolute 0.000 0.000 - 0.000 x10(3)/mc L [facility] Blood 10/05/2022 9:20 AM EST 10/05/2022 10:12 AM EST Narrative Resulting Agency Comment Spec In Lab Darron HARMON HEMATOLOGY ORDERABLE S Performing Organization Address City/[facility] Co de Phone Number [facility] [place] [address] * ABORH Recheck Status (10/05/2022 9:20 AM EST) ABORH Type Recheck Completed [facility] Blood 10/05/2022 9:20 AM EST 10/05/2022 10:08 AM EST Narrative Resulting Agency Comment Spec In Lab Darron HARMON BLOOD BANK LAB ORDER SUNDEEP Performing Organization Address City/[facility]/ZIP Co de Phone Number [facility] [place] [address] * Antibody screen (10/05/2022 9:20 AM EST) Ab Screen Interp Negative [facility] Expires at [id number] on: 10/08/2022 [facility] Blood 10/05/2022 9:20 AM EST 10/05/2022 10:08 AM EST Narrative Resulting Agency Comment Spec In Lab Darron HARMON BLOOD BANK LAB ORDER SUNDEEP Performing Organization Address City/[facility]/ZIP Co de Phone Number [facility] [place] [address] * ABO/Rh Typing (10/05/2022 9:20 AM EST) ABORH Type O Pos [facility] Blood 10/05/2022 9:20 AM EST 10/05/2022 10:08 AM EST Narrative Resulting Agency Comment Spec In Lab Darron HARMON BLOOD BANK LAB ORDER SUNDEEP Performing Organization Address City/[facility] Co de Phone Number [facility] [place] [address] * Beta HCG, quantitative (10/05/2022 9:20 AM EST) Beta Human Chorionic Gonadotropin, Quantitative <1 mlU/ML [facility] Comment: REFERENCE RANGES NON- FEMALE: ??Less than 5 mIU/mL POSTMENOPAUSAL FEMALE: ??Less than 8 mIU/mL ? -- FEMALES -- Weeks of ? HCG range ??(mIU/mL) ? 3 weeks ? 5.8 - 71.2 ? 4 weeks ? 9.5 - 750 ? 5 weeks ? 217 - 7,138 ? 6 weeks ? 158 - 31,795 ? 7 weeks ? 3,697 - 163,563 ? 8 weeks ? 32,065 - 149,571 ? 9 weeks ? 63,803 - 151,410 ?10 weeks ? 46,509 - 186,977 ?12 weeks ? 27,832 - 210,612 ?14 weeks ? 13,950 - 62,530 ?15 weeks ? 12,039 - 70,971 ?16 weeks ? 9,040 - 56,451 ?17 weeks ? 8,175 - 69,868 ?18 weeks ? 8,093 - 22,176 This result was generated using a Aiden Lanette immunoassay. ??Results obtained from other methods or manufacturers cannot be used interchangeably with this method. Blood 10/05/2022 9:20 AM EST 10/05/2022 10:12 AM EST Narrative Resulting Agency Comment Spec In Lab Dandy So MD CHEMISTRY ORDERABLES Performing Organization Address City/State/[facility] Co de Phone Number [facility] [place] [address] * Basic Metabolic Panel (non-fasting) (10/05/2022 9:20 AM EST) Glucose 81 65 - 199 mg/dL [facility] Comment:Diabetes: >=200 mg/d L plus symptoms Blood Urea Nitrogen 12 8 - 18 mg/dL [facility] Creatinine 0.86 0.70 - 1.20 mg/dL [facility] Sodium 141 135 - 145 mmol/L [facility] Potassium 4.1 3.5 - 5.0 mmol/L [facility] Comment: Please note: ??Patients with WBC >100,000 may have falsely elevated Potassium levels. ??For accurate Potassium quantification in these patients send serum separator tube (gold top) for subsequent determinations. ??Contact the Clinical Chemistry Laboratory if there are any questions. Chloride 105 98 - 107 mmol/L [facility] Carbon Dioxide 25 22 - 31 mmol/L [facility] Anion Gap 11 5 - 15 mmol/L [facility] Calcium 9.5 8.5 - 10.5 mg/dL [facility] Est Glomerular Filtration Rate 89 >=60 mL/min/1. 73 m?? [facility] Comment: This patient's estimated GFR [...] and symptoms in addition to eGFR. Blood 10/05/2022 9:20 AM EST 10/05/2022 10:12 AM EST Narrative Resulting Agency Comment Spec In Lab Dandy So MD CHEMISTRY ORDERABLES [facility] [place] [address] documented in this encounter Visit Diagnoses Diagnosis Abnormal vaginal bleeding Other specified noninflammatory disorder of vagina documented in this encounter Care Teams Teacher Of Family And Consumer Science Relationship Specialty Start Date End Date None None PCP - General 05/30/22 09/28/23 documented as of this encounter
--- OUTSIDE RECORDS SUMMARY | 2024-09-20 11:04 | XMS_ITS | Encounter Summary ---
Author Organization Formerly [facility], [facility] Address [facility] [place] [address] Care Team Providers Care Technical Illustrations Map Inker Name Role Phone None Primary Care Provider Unavailabl e Encounter Details Date Type Department Care Team (Late st Contact Info) Description 03/02/2023 Telephone [place] [phone] Prashant Mckee MD [facility] DR CARDIOVASCULAR [place] [address] Social History Tobacco Use Types Packs/Day Years [...] encounter Miscellaneous Notes * Telephone Encounter - Prashant Mckee MD - 03/02/2023 4:31 AM EDT Was paged by Aniya Luque requesting me to check on her battery life of her device. At her last device interrogation in December, 88% battery life. That was all. documented in this encounter Plan of Treatment Upcoming Encounters Date Type Department Care Team (Late st Contact Info) Description 09/21/2024 8:15 AM EST Routine Obstetrics [place] [address] Emili Cabrera MD [facility] MATERNAL [place] [address] 09/26/2024 6:00 PM EST Appointment [facility] [place] [phone] 10/16/2024 Hospital [place] [phone] Dudley Aguilar MD [facility] DR OBSTETRICS [place] [address] 11/08/2024 10:00 AM EST Hospital Encounter Non-Invasive [place] [phone] Arrived documented as of this encounter Visit Diagnoses Not on filedocumented in this encounter Care Teams Technical Illustrations Map Inker Relationship Specialty Start Date End Date None None PCP - General 05/30/22 09/28/23 documented as of this encounter
--- OUTSIDE RECORDS SUMMARY | 2024-09-20 11:05 | XMS_ITS | Encounter Summary ---
Author Organization [facility] Address [facility] [place] [address] Care Team Providers Care Franchise Business Consultant Name Role Phone None Primary Care Provider Unavailabl e Encounter Details Date Type Department Care Team (Late st Contact Info) Description 07/19/2022 Notes Only Obstetrics [place] [phone] Kaila Castellanos MD [facility] DR OBSTETRICS [place] [address] Social History Tobacco Use Types Packs/Day Years Used Date Smoking Tobacco: Every Day Cigarettes 1 15 Smokeless Tobacco: Never Comments:Smokess 0.5 - 1 pac ks of cigarettes daily x 13 - 14 years. Alcohol Use Standard Drinks/Week Comments Not Currently 0 (1 standard drink = 0.6 oz pur e alcohol) Comments Yes Sex and Gender Information Value Date Recorded Sex Assigned at Female 03/02/2024 7:39 AM EDT Gender Identity Female 03/02/2024 7:39 AM EDT Sexual Orientation Bisexual 03/02/2024 7: 39 AM EDT documented as of this encounter Progress Notes * Kaila Castellanos MD - 07/19/2022 9:39 AM EDT Called with vaginal yeast culture results. Natalia Galbrata. Recommended Terazol 7 documented in this encounter Plan of Treatment Upcoming Encounters Date Type Department Care Team (Late st Contact Info) Description 09/21/2024 8:15 AM EST Routine Obstetrics [place] [address] Emili Cabrera MD [facility] MATERNAL [place] [address] 09/26/2024 6:[address] [facility] [phone] 10/16/2024 Hospital [place] [phone] Dudley Aguilar MD [facility] DR OBSTETRICS [place] [address] 11/08/2024 10:00 AM EST Hospital Encounter Non-[place] [phone] Arrived documented as of this encounter Visit Diagnoses Not on filedocumented in this encounter Care Teams Franchise Business Consultant Relationship Specialty Start Date End Date None None PCP - General 05/30/22 09/28/23 documented as of this encounter
--- OUTSIDE RECORDS SUMMARY | 2024-09-20 11:05 | XMS_ITS | Encounter Summary ---
Author Organization [facility] Address [facility] [place] [address] Care Team Providers Care Financial Services Representative Name Role Phone None Primary Care Provider Unavailabl e Encounter Details Date Type Department Care Team (Late st Contact Info) Description 07/30/2022 Orders Only Cardiology at [address] [phone] Social History Tobacco Use Types [...] AM EST Routine Obstetrics [place] [address] Emili Cabrera MD [facility] [place] [address] 09/26/2024 6:00 PM EST Appointment [facility] [place] [address] 10/16/2024 Hospital Encounter [place] [address] Dudley Aguilar MD [facility] OBSTETRICS AND GYNECOLOGY [place] [id number] 11/08/2024 10:00 AM EST Hospital Encounter Non-Invasive [place] [address] Arrived documented as of this encounter Procedures Procedure Name Priority Date/Time Associated Diagnosis Comments CARDIAC DEVICE CHECK - REMOTE PATIENT INITIATED Routine 07/30/2022 1:35 PM EDT documented in this encounter Results * Cardiac device check - Remote Patient Initiated (07/30/2022 1:35 PM EDT) Implantable Pulse Generator Type Defibrillator [employer] Implantable Pulse Generator Model A219 [employer] Implantable Pulse Generator Serial Number [id number] [employer] Implantable Pulse Generator [employer]CO Implantable Pulse Generator Implant Date [id number] IDCO Date Time Interrogation Session IDCO Type Interrogation Session Remote Patient Initiated IDCO Clinic Name [facility] [place] IDCO Battery Date Time of Measurements IDCO [...] IDCO Episode Statistic Recent Date Time Start 20220726 IDCO Episode Statistic Recent Date Time End 20220730 IDCO Episode Statistic Total Count 0 IDCO Episode Statistic Total Date Time Start 20211112 IDCO Episode Statistic Total Date Time End [id number] IDCO Episode Statistic Type Category VF IDCO Episode Statistic Vendor Type Category VF IDCO Episode Statistic Recent Count 0 IDCO Episode Statistic Recent Date Time Start 20220726 IDCO Episode Statistic Recent Date Time End 20220730 IDCO Episode Statistic Total Count 0 IDCO Episode Statistic Total Date Time Start 20211112 IDCO Episode Statistic Total Date Time End 20220730 IDCO Therapy Statistic Recent Date Time Start 20220726 IDCO Therapy Statistic Recent Date Time End 20220730 IDCO Therapy Statistic Recent Shocks Delivered 0 IDCO Therapy Statistic Total Date Time Start 20211112 IDCO Therapy Statistic Total Date Time End 20220730 IDCO Therapy Statistic Total Shocks Delivered 1 [employer] Implantable Lead Model 3501 [employer] Implantable Lead Serial Number [id number] [employer] Implantable Lead [employer] IDCO Implantable Lead Location Other IDCO Implantable Lead Location Detail 1 Subcutaneous IDCO Anatomical Region Laterality Modality Other 07/30/2022 1:35 PM EDT Physician Cardiology IMPLANTABLE CARD IAC DEVICE documented in this encounter Visit Diagnoses Not on filedocumented in this encounter Care Teams Financial Services Representative Relationship Specialty Start Date End Date None None PCP - General 05/30/22 09/28/23 documented as of this encounter
--- OUTSIDE RECORDS SUMMARY | 2024-09-20 11:05 | XMS_ITS | Encounter Summary ---
[facility] Organization [facility] [place] [address] Care Team Providers Care Senior Writer Name Role Phone None Primary Care Provider Unavailabl e Reason for Visit * Auth/Cert Specialty Diagnoses / Procedures Referred By Contac t Referred To Contact Diagnoses . Procedures VAGINAL DELIVERY Kaila Castellanos MD [facility] [address] OBSTET[place]ICS [place] [address] [facility] Referral ID Status Reason Start Date Expiration Date Visits Re quested Visits Authorized [id number] 1 1 Encounter Details Date Type Department Care Team (Late st Contact Info) Description 07/25/2022 12:20 PM EDT [place] [address] Martir Mckeon MD [facility] [place] [address] Anesthesia Record Procedure Summary Procedure Name Responsible Anesthesiologist Anesthesia Start Time Anesthesia Stop Time Labor Analgesia (proc) Events Date Time Event Comment 07/25/20222009 AN Verify 2019 Labor Neuraxial Meds Name Total Lidocaine 1% 3 mL Lidocaine 1.5% with Epi 1:200K 3 mL * Agents No agents on file. * Blood No blood administrations on file. Lines, Drains, and Airways Type Details Placement Removal PIV 09/14/24; 1020; 20 g auge; dorsal arch vein (top of hand), left; K.Merzi; distraction 09/14/24 1020 by Valarie Butler RN Epidural 07/25/22; 2009 (pamela davies via procedure documentation); no longer indicated, removed per policy, catheter intact, removed with ease; Catheter intact, No complications; 07/26/22; 0330 07/25/222009 by Jasmin Dominguez MD 07/26/22329 by Dejah Cancino RN documented in this encounter Social History Tobacco [...] of this encounter OR Notes * Anesthesia Postprocedure Evaluation - Ginette Lorenz MD - 07/29/2022 7:54 AM EDT Department of Anesthesiology Post-procedure Note Patient: Aniya Luque Procedure Summary Date: 07/25/22 Room / Location: Anesthesia Start: Anesthesia Stop: Procedure: Labor Analgesia (proc) Diagnosis: Scheduled Providers: Responsible Provider: Anesthesia Type: epidural ASA Status: 3 All Anesthesia Providers: No anesthesia staff entered. Vitals Value Taken Time BP Temp Pulse Resp SpO2 Pain Level Patient Location: PACU/SDP Level of Consciousness: Awake and Alert Pain Management: Satisfactory Analgesia PONV: None Cardiovascular Status: At Baseline and Hemodynamically Stable Respiratory Status: At Baseline and Room Air Postoperative Fluid Status: Intravascular EUvolemia Possible Anesthetic Complications: NONE apparent at time of evaluation Final Primary Anesthesia Type: Epidural (The anesthetic type performed was the same as planned.) Comments: Visit to patient's room. Aniya is now day 3 from a vaginal delivery with uncomplicated epidural analgesia. Reports she is doing okay. Has been ambulating, voiding, and taking PO without issue. No focal numbness or weakness. Reports epidural worked well for her. Does endorse back pain that worsens with movement and some tenderness at the epidural insertion site. On exam, well appearing, no obvious neuro deficits. Neuraxial site appears unremarkable. Discussed that mechanical back pain after labor and delivery is very common and unrelated to epidural analgesia, but some tenderness at the site could be from the epidural and should resolve within a few days. Pt also endorses intermittent non-positional headaches since delivery. Denies diplopia, tinnitus, hearing changes. Low suspicion for PDPH. Patient counseled to reach out to anesthesia if becomes positional. Please do not hesitate to contact the obstetric anesthesia service with questions / concerns regarding this patient's anesthetic care. Ginette Lorenz MD Attending Anesthesiologist Pager [phone] 07/29/22 7:54 AM * Anesthesia Procedure Notes - Jasmin Dominguez MD - 07/25/2022 9:35 PM EDT Associated Order(s): Neuraxial for Labor Only Procedure: Labor Analgesia Neuraxial Block Labor Analgesia Type: Epidural The patient was greeted. The sedation plan, its benefits, risks and alternatives were discussed with the patient. The patient has consented to the procedure. The medical history and chart were reviewed. The timeout was performed. Start time: 07/25/2022 8:10 PM End time: 07/25/2022 8:20 PM Patient Location: [facility] [place] Patient Prep Position: Sitting Prep: Chlorhexidine, Patient Draped, Hand Hygiene, Hat, Mask and Sterile Gloves Injection technique: continuous Procedure Technique Level of needle insertion: L4-5 Needle approach: midline Needle Type: Tuohy Gauge: 17 Needle length: 3.5 in Needle insertion depth when CLEM achieved: 6 cm Technique for Loss of Resistance: CLEM air and CLEM saline A 19G Flex-Tip epidural catheter was inserted into the space Catheter at skin depth: 11 cm Dressing/Secured with: Chlorhexidine Tegaderm and Tegaderm Number of attempts: 1 Test dose Lidocaine 1.5% w/Epinephrine 1:2000,000 3mL Events/Notes Events: None Additional Notes: Prepped and draped in sterile fashion. Pt in communication at all times. Redirected once after encountering os, then crisp CLEM at 6cm. Catheter threaded easily and left at 11cm. Negative aspiration, negative test dose. Resident/FLOTATION TENDER: Jasmin Dominguez MD Second Resident/FLOTATION TENDER: SRNA: Fellow: Attending Physician: Sergo Mar MD ~~~~~~~~~~~~~~~~~~~~~~~~~~~~~~~~~~~~~~~~~~~~~~~~~~~~~~~~~~~~ * Anesthesia Preprocedure Evaluation - Martir Mckeon MD - 07/25/2022 12:23 PM EDT Pre-Anesthesia Evaluation for: Aniya Torres Ene a 37 y.o. female. * No procedures listed * Patient Active Problem List Diagnosis Date Noted ??? Subcutaneous defibrillator implanted 11/12/2021 11/12/2021 ??? Cigarette smoker 11/11/2021 ??? 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 *History of COVID-19 11/05/2021 ??? Cardiac arrest 11/04/2021 ??? Gastroesophageal reflux disease 11/06/2020 ??? Borderline personality disorder 05/23/2020 ??? Post-traumatic stress disorder, chronic 05/23/2020 ??? Anxiety disorder, unspecified 05/22/2020 ??? Chest pain 01/17/2016 ??? Skin disease 03/24/2015 ??? Depression 08/03/2014 ??? Asthma 08/03/2014 ??? Hypertension 08/03/2014 ??? Tachycardia 08/03/2014 ??? Recurrent major depressive episodes, moderate 07/03/2009 Past Medical History: Diagnosis Date ??? *History [...] ENDOSCOPY performed by Dudley Alva MD at [facility] ENDOSCOPY Social History Tobacco Use ??? Smoking status: Current Every Day Smoker Packs/day: 1.00 Years: 15.00 Pack years: 15.00 Types: Cigarettes ??? Smokeless tobacco: Never Used ??? Tobacco comment: Smokess 0.5 - 1 packs of cigarettes daily x 13 - 14 years. Substance Use Topics ??? Alcohol use: Not Currently Social History Substance and Sexual Activity Drug Use Not Currently Comment: CBD as needed Allergies Allergen Reactions ??? Augmentin [Amoxicillin-Pot Clavulanate] Rash Unsure if allergic ??? Ipratropium Other (See Comments) ??? Morphine Other (See Comments) Cannot recall ??? Penicillins Rash Patient denies allergy. Take amoxicillin w/o reactions. ??? Seroquel [Quetiapine] Other (See Comments) Made head feel loopy. Medications: MAR and/or home medications have been reviewed. Physical Exam: Preprocedure Vitals Current as of 07/25/22 1223 BP: 120/87 Pulse: 103 Resp: 18 SpO2: 98 Temp: 36.4 ??C (97.5 ??F) Height: 162.6 cm (5' 4) (07/25/22) Weight: 77.6 kg (171 lb) (07/25/22) BMI: 29.35 IBW: 54.7 kg (120 lb 10.7 oz) Last edited 07/25/22 1130 by SS Currently displaying vitals information from multiple entries within 180 minutes of most recent vitals. Airway Assessment: Mallampati: II TM distance: >3 FB Neck ROM: full Cardiovascular Assessment: system normal PE comment: ICD palpated on left side of torso, Inferior to axilla with magnet secured in place with adhesive bandages. Audibile beeping from device is heart intermittently. Pulmonary Assessment: unlabored breathing Dental Assessment: - normal exam Misc Assessment: IV access: Peripheral line Last Filed Perioperative Cognitive Screening None Anesthesia Plan: ASA 3 epidural, Preprocedure anesthesia Note Pt interviewed and examined. Pt is a 37 y.o. female who is and 37w0d here for IOL. Medical history, medications, allergies, and social history reviewed, significant for with multipleVF arrests in October 2021 presumed due to severe coronary vasospasm. Cardiac workup showed normal LVEF with no myocardial damage, cardiomyopathy, or WMAs. Patient is followed closely by Cardiology and understands that her risk of cardiac event during the peripartum period is greatly increased. PMHalso significant for asthma, HTN, anxiety, borderline personality disorder, PTSD, GERD, current smoker, and subcutaneous ICD placed 11/12/21(Bioptigen, serial number in chart). Labs and allergies reviewed and listed below. Personal history of problems with anesthesia: denies Family history of anesthesia problems: denies Bleeding Disorder: Denies, but says she thinks she bleeds easier over the last 2 years than she didbefore. Asthma: yes, uses albuterol inhaler several times a week HTN: yes Prior back surgeries/pathology: denies LE numbness/weakness: denies Type and Screen: Lab Results Component Value Date ABORH O Pos 01/16/2022 ASSESSMENT & PLAN: Discussed potential need for labor analgesia and/or anesthesia to possibly include epidural, spinal, CSE, and anesthesia for (which includes all of the above with the addition of general anesthesia). Risk, benefits discussed; questions answered. Consent obtained and placed in patient's chart. Anesthesia plan includes early epidural. Magnet has been placed on ICD to disable it(placed by EP),Zoll outside room. Early epidural will allow for us to achieve gradual neuraxial anesthesia without significant hemodynamic swings seen with either rapid neuraxial or with significant pain. Furthermore, this minimizes the risk of needing GA if a C- section is needed. Zoll pads to be placed if going for . Following delivery, EP should evaluate her device and remove magnet. Martir Mckeon MD Pbx Repairer, PGY3/CA2 Pager # [phone] Informed Consent: Anesthetic plan and risks discussed with patient. Use of blood products discussed with patient who. Anesthesia Screening Note: Date and Time of Entry: 05/14/2022 11:36 AM Entered By: Michael Lawson MD Reason for Evaluation: Surgeon Request Hx of Anesthesia Problem: Multiple VF arrests s/p ICD placement Screening Visit Type: Interviewed in person Additional/Outside Records Requested? Did not request medical information from outside organization. Findings, Assessment and Plan: Date and Time of Entry: 05/14/2022 11:36 AM Entered By: Michael Lawson MD ? Findings, Assessment and Plan: Aniya Luque is a 36 y.o. 77kg (BMI 29) female at 26w5 who was referred to the [facility] due to a history of multiple VF arrests in October 2021. Initial event occurred on 11/04/21 with a VF arrest witnessed by her fiance, who performed CPR. Extensive resuscitation attempt resulted in ROSC. On day of admission, she had another witnessed arrest (junctional rhythm with ST elevations to VT then VF) requiring defibrillation x3 and amiodarone bolus + gtt. She underwent an emergent cardiac workup, including a catheterization, which showed no obstructive L-sided CAD. However, when the L main coronary was injected, another VF arrest occurred and ROSC was again obtained. Given that the arrest occurred following injection, her arrests are presumed due to severe coronary vasospasms. Cardiac workup otherwise demonstrated no sign of myocardial damage, cardiomyopathy, or WMAs. LVEF was found to be 68%. Post-arrest protocol included targeted-temperature management. A left-sided subcutaneous ICD was placed and has not fired since this initial hospitalization. She is followed closely by Cardiology and EP. The Cardiology team assesses her risk as: mWHO III for Ventricular arrhythmia- Maternal cardiac event rate (largely CHF or arrhythmia) of19-27% and significantly increased mortality. Carpreg 3-15% incidence of cardiac events expected. ?? She takes amlodipine to prevent coronary vasospasm. She does continue to endorse somewhat vague chest pain for which she takes sublingual NTG a few times per week. It is unclear if this due to anxiety or cardiac in etiology. ?? PMH is otherwise notable for active smoker, asthma, HTN, borderline personality disorder, PTSD, anxiety, depression. Her psychiatric disease significantly impacts her function and, per her chart, is the reason that 2 of her children are under the care of relatives. ?? Pertinent allergies: penicillin (rash), morphine (patient not aware of allergy/reaction but has tolerated other PO opioids including hydrocodone but reports significant pruritis) ?? Anesthesia history: denies prior GA and very strongly wishes to avoid it; denies FH of problems with anesthesia. She has epidurals for the L&D for prior pregnancies without issue. Reports that the epidurals worked well. ?? Functional status: >4 METS ?? Assessment/plan: 36F at 26w5 with multiple VF arrests in October 2021 presumed due to severe coronary vasospasm. Cardiac workup shows normal LVEF with no myocardial damage, cardiomyopathy, or WMAs. Patient is followed closely by Cardiology and understands that her risk of cardiac event during the peripartum period is greatly increased. ?? The only optimization that can be done from the anesthesia standpoint at this time is encouraging smoking cessation. She has been extensively counseled that the single most important change that she could make to minimize her risk during this is to quit smoking. We discussed this again today. She understands that her risk of recurrent vasospasm is increased by her continued smoking, andshe reports that she is trying to quit. She sees a smoking cessation team but continues to smoke about 0.5ppd. ?? Otherwise, anesthesia plan includes early epidural and having a magnet and Zoll in the room. Early epidural placement would allow for us to achieve gradual neuraxial anesthesia without significant hemodynamic swings seen with either rapid neuraxial or with significant pain. Furthermore, this minimizes the risk of needing GA if a is needed. We will also want to have a magnet with the patient to be placed over the ICD in case the bovie is needed (ie for a C- section). This will turn off the ICD so Zoll pads should also be placed on the patient in case defibrillation is needed. Following the procedure, EP should evaluate her device. ?? Michael Lawson MD [facility] 05/14/22 documented in this encounter Plan of Treatment Upcoming Encounters Date Type Department Care Team (Late st Contact Info) Description 09/21/2024 8:15 AM EST Routine Obstetrics [place] [address] Emili Cabrera MD [facility] [place] [address] 09/26/2024 6:00 PM EST Appointment [facility] [place] [address] 10/16/2024 [facility] [place] [address] Dudley Aguilar MD [facility] DR OBSTETRICS [place] [address] 11/08/2024 10:00 AM EST Hospital Encounter Non-Invasive [place] [address] Arrived documented as of this encounter Procedures Procedure Name Priority Date/Time Associated Diagnosis Comments [id number] Routine 07/25/2022 9:35 PM EDT documented in this encounter Results * [id number] (07/25/2022 9:35 PM EDT) Narrative Sergo Mar MD - 07/25/2022 9:35 PM EDT Jasmin Dominguez MD ? 07/25/2022 ??9:38 PM Procedure: ?? Labor Analgesia Neuraxial Block Labor Analgesia Type: Epidural The patient was greeted. The sedation plan, its benefits, risks and alternatives were discussed with the patient. ??The patient has consented to the procedure. ??The medical history and chart were reviewed. ??The timeout was performed. Start time: 07/25/2022 8:10 PM End time: 07/25/2022 8:20 PM Patient Location: [facility] Patient Prep Position: Sitting Prep: Chlorhexidine, Patient Draped, Hand Hygiene, Hat, Mask and Sterile Gloves Injection technique: continuous Procedure Technique Level of needle insertion: L4-5 Needle approach: midline Needle Type: Tuohy Gauge: 17 Needle length: 3.5 in Needle insertion depth when CLEM achieved: 6 cm Technique for Loss of Resistance: CLEM air and CLEM saline A 19G Flex-Tip epidural catheter was inserted into the space Catheter at skin depth: 11 cm Dressing/Secured with: Chlorhexidine Tegaderm and Tegaderm Number of attempts: 1 Test dose Lidocaine 1.5% w/Epinephrine 1:2000,000 3mL Events/Notes Events: ??None Additional Notes: ??Prepped and draped in sterile fashion. Pt in communication at all times. Redirected once after encountering os, then crisp CLEM at 6cm. Catheter threaded easily and left at 11cm. Negative aspiration, negative test dose. Resident/FLOTATION TENDER: ? Jasmin Dominguez MD Second Resident/FLOTATION TENDER: SRNA: ? Fellow: ? Attending Physician: ? Sergo Mar MD ~~~~~~~~~~~~~~~~~~~~~~~~~~~~~~~~~~~~~~~~~~~~~~~~~~~~~~~~~~~~ Sergo Mar MD POWER GENERATION ENGINEER [facility] documented in this encounter Visit Diagnoses Not on filedocumented in this encounter Administered Medications Inactive Administered Medications - up to 3 most recent administrations Medication Order MAR Action Action Date Dose Rate Site lidocaine (Xylocaine) 1% (10 mg/mL) injection Subcutaneous, PRN, Starting on Jenelle 07/25/22 at 2015, Until Fri07/30/22 at 2232, Anesthesia Intra-op, Routine Given 07/25/2022 8:15 PM EDT 3 mLs lidocaine-EPINEPHrine (pf) (1.5% - 1:200,000) injection Epidural, PRN, Starting on Jenelle 07/25/22 at 2021, Until Fri07/30/22 at 2232, Anesthesia Intra-op, Routine Given 07/25/2022 8:22 PM EDT 3 mLs documented in this encounter Care Teams Senior Writer Relationship Specialty Start Date End Date None None PCP - General 05/30/22 09/28/23 documented as of this encounter
--- OUTSIDE RECORDS SUMMARY | 2024-09-20 11:05 | XMS_ITS | Encounter Summary ---
Author Organization [facility] Address [facility] [place] [address] Care Team Providers Care Team Driver Name Role Phone None Primary Care Provider Debbie e Encounter Details Date Type Department Care Team ([facility] st Contact Info) Description 08/12/2022 Telephone Psychiatry [place] [phone] Juany Goss LICSW [address] [phone] Social History Tobacco Use Types Packs/Day Years [...] encounter Miscellaneous Notes * Telephone Encounter - Juany Goss LICSW - 08/12/2022 9:19 AM EDT Attempted to call x2 for appointment. Left vm to call [phone] to reschedule. documented in this encounter Plan of Treatment Upcoming Encounters Date Type Department Care Team (Late st Contact Info) Description 09/21/2024 8:15 AM EST Routine Obstetrics [place] [address] Emili Cabrera MD [facility] [place] [address] 09/26/2024 6:00 PM EST Appointment [facility] [place] [phone] 10/16/2024 Hospital [place] [phone] Dudley Aguilar MD [facility] DR OBSTET[place] [address] 11/08/2024 10:00 AM EST Hospital Encounter [place] [phone] Arrived documented as of this encounter Visit Diagnoses Not on filedocumented in this encounter Care Teams Team Driver Relationship Specialty Start Date End Date None None PCP - General 05/30/22 09/28/23 documented as of this encounter
--- OUTSIDE RECORDS SUMMARY | 2024-09-20 11:05 | XMS_ITS | Encounter Summary ---
Author Organization [facility] Address [facility] [place] [address] Care Team Providers Care Professional Athletes Coach Name Role Phone None Primary Care Provider Unavailabl e Reason for Visit * [facility] Maternal Child Health (Routine) - Canceled Specialty Diagnoses / Procedures Referred By Contac t Referred To Contact Diagnoses Single liveborn, born in hospital, delivered by vaginal delivery Kaila Castellanos MD [facility] OBSTETRICS [place] [address] [facility] Maternal Child [address] [place] [phone] Referral ID Status Reason Start Date Expiration Date Visits Requested Visits Authorized [id number] Canceled Specialty Service Requested 2 07/29/[phone] Encounter Details Date Type Department Care Team (Latest Contact Info) Description 08/06/2022 10:00 AM EDT Home Care Visit [facility] Maternal Child Health [address] [place] [phone] Carolina Russell RN NOT HOME NOT FOUND VISIT Social History Tobacco Use Types Packs/Day Years [...] as of this encounter Miscellaneous Notes * Home Health - Carolina Russell RN - 08/06/2022 10:11 AM EDT This nurse spoke with Aniya on the phone just before leaving for her visit, she stated that her boyfriend may have been exposed to Covid yesterday afternoon. This nurse advised her that if he was exposed yesterday afternoon he would not be contagious today but we could reschedule the visit if shewanted. She stated no that's fine if you are comfortable. This nurse told her everyone needs to lechuga masks during the visit, and the [facility] program sometimes see patients that are Covid positive, weuse special precautions. This nurse also advised that she could be seen at another time. She ended the phone conversation by saying ok I will see you in a little bit, this nurse told her it would take about 35 minutes to get to her house. This nurse got to her house and her boyfriend answered the door, this nurse asked for Aniya and he stated Aniya is not here she went to the pharmacy to get a Covid test for me. He them stated she left a voice mail on your phone canceling the visit. This nurse told him there are no voicemails on my phone. He said he would call Aniya and he shut the door. Aniya called this nurse before this nurse walked to her car, this nurse asked if she just wantedme to wait for her to get back from the pharmacy, Aniya responded no I don't know how long I will be, I am waiting for the pharmacist. This nurse advised that this would be the second not home not found visit, and that she would have to contact the boss to see if the visit can be rescheduled for next week, or when she is comfortable having a visit. She stated OK. documented in this encounter Plan of Treatment Upcoming Encounters Date Type Department Care Team (Late st Contact Info) Description 09/21/2024 8:15 AM EST Routine Obstetrics [place] [address] Emili Cabrera MD [facility] DR MATERNAL [place] [address] 09/26/2024 6:00 PM EST Appointment [facility] [place] [phone] 10/16/2024 [place] [address] Dudley Aguilar MD [facility] DR OBSTETRICS [place] [address] 11/08/2024 10:00 AM EST Hospital Encounter Non-[place] [phone] Arrived Scheduled Referrals Name Type Priority Associated Diagnoses Orde r Schedule Amb Referral to [facility] Maternal Child Health Outpatient Referral Routine Single liveborn, born in hospital, delivered by vaginal delivery Ordered: 07/29/2022 documented as of this encounter Visit Diagnoses Not on filedocumented in this encounter Care Teams Professional Athletes Coach Relationship Specialty Start Date End Date None None PCP - General 05/30/22 09/28/23 documented as of this encounter
--- OUTSIDE RECORDS SUMMARY | 2024-09-20 11:05 | XMS_ITS | Encounter Summary ---
Author Organization [facility] Address [facility] [place] [address] Care Team Providers Care Report Clerk Name Role Phone None Primary Care Provider Unavailabl e Encounter Details Date Type Department Care Team (Late st Contact Info) Description 07/30/2022 Telephone [facility] Maternal Child Health [address] [place] [phone] Gwen Figueroa Social History Tobacco Use Types Packs/Day Years [...] encounter Miscellaneous Notes * Telephone Encounter - Gwen Figueroa - 07/30/2022 10:01 AM EDTSummary: VERIFICATION OF INFO FOR [facility] ADMISSION Verification completed with Aniya. She stated she is very worried about COVID and has limited the number of people she allows into her home. This development writer did let her know that the RN entering her home to admit herself and her infant to [facility] services will be wearing a mask and does follow required precautions. Admission scheduled for 08/02/22 at 10:00 a.m. documented in this encounter Plan of Treatment Upcoming Encounters Date Type Department Care Team (Late st Contact Info) Description 09/21/2024 8:15 AM EST Routine Obstetrics [place] [address] Emili Cabrera MD [facility] [place] [address] 09/26/2024 6:00 PM EST Appointment [facility] [place] [address] 10/16/2024 Hospital [place] [address] Dudley Aguilar MD [facility] [address] [place] [address] 11/08/2024 10:00 AM EST Hospital Encounter [place] [address] Arrived documented as of this encounter Visit Diagnoses Not on filedocumented in this encounter Care Teams Report Clerk Relationship Specialty Start Date End Date None None PCP - General 05/30/22 09/28/23 documented as of this encounter
--- OUTSIDE RECORDS SUMMARY | 2024-09-20 11:05 | XMS_ITS | Encounter Summary ---
Author Organization [facility] Address [facility] [place] [address] Care Team Providers Care Superintendent Track Name Role Phone None Primary Care Provider Unavailabl e Encounter Details Date Type Department Care Team (Latest Contact Info) Description 07/18/2022 5:27 PM EDT - 07/18/2022 8:50 PM EDT [place] [address] Vika Pina MD [facility] [address] OBSTETRICS [place] [address] Discharge Disposition: Home Social History Tobacco Use [...] Sign Reading Time Taken Comments Blood Pressure 120/71 07/18/2022 6:00 PM EDT Pulse 97 07/18/2022 6:00 PM EDT Temperature 37 ??C (98.6 ??F) 07/18/2022 6:00 PM EDT Respiratory Rate 18 07/18/2022 6:00 PM EDT Oxygen Saturation 99% 07/18/2022 6:04 PM EDT Inhaled Oxygen Concentration - - Weight - - Height - - Body Mass Index - - documented in this encounter Discharge Instructions * Discharge Instructions* Jerilyn Del Valle RN - 07/18/2022 8:24 [place] [address] [facility] Aniya Luque 07/18/22 8:24 PM Following your visit to [facility] Triage Call your doctor or sql data architect for: Seizure (call 911) Chest pain Shortness of breath Headache which isn't relieved with Tylenol Headache with visual changes Abdominal pain Swelling to hands and face A temperature at or above 100.4F Nausea or vomiting Gestation - under 37 weeks Call your doctor or sql data architect if: You experience any menstrual like cramping [...] a vaginal exam in your doctor's or sql data architect's office you should not bleed as much [...] as a car accident, fall, or impact Term Gestation - over 37 weeks Call your doctor or sql data architect if: You are having painful contractions/abdominal cramps less than 5 minutes apart for 1 hour walking, resting, or any kind of activity does not make them less painful or go away You are leaking fluid may be a small leak may be a large gush note the time fluid started leaking, amount, and color (clear, yellow, green, pink, red) You notice vaginal bleeding spotting is normal following a vaginal exam in your doctor's or sql data architect's office you should not bleed as much as a period You have noticed a marked decrease in your baby's movement refer to your kick count instructions in the Your and Childbirth Month to Month (6th edition) your baby should move at least 10 times in 2 hours You have had any direct trauma to your abdomen such as a car accident, fall, or impact General Instructions Drink plenty of non-caffeinated fluids throughout the day to prevent dehydration. Keep your regularly scheduled doctor or sql data architect appointment. Vaccination If you received the Measles, Mumps, and Rubella (MMR) vaccine, varicella vaccine, or Hepatitis A vaccine during your hospitalization make sure to discuss this with your OB provider or your PCP at your next visit. You may need a second dose of the vaccine to receive effective vaccine protection. Your [facility] Provider can be reached during office hours at [facility] AFTER OFFICE HOURS: Call and ask for the parts interpreter or sql data architect staff consultant documented in this encounter Medications at Time of Discharge Medication Sig Dispensed Refills Start Date End Date fluticasone propionate (Flonase) 50 mcg/actuation [place], SuspensionIndications :allergic rhinitis 1 spray by Each [...] as directed for 3 days. 06/04/2022 03/02/2024 nitroGLYcerin (Nitrostat) 0.4 mg Tablet, Sublingual Place 1 tablet under the tongue every 5 minutes as needed for Chest pain. 30 tablet 1 07/09/2022 10/31/2022 Norvasc 2.5 mg Tablet Take 1 tablet by mouth 2 times daily. Take 1 tablet in the morning and 2 tablets at night. 180 tablet 1 06/28/2022 10/31/2022 cefPODOXime (Vantin) 200 mg Tablet Take 1 tablet by mouth 2 times daily. 10 tablet 06/20/2022 07/25/2022 famotidine (Pepcid) 40 mg Tablet Take 1 tablet by mouth 2 times daily. 60 tablet 5 06/20/2022 07/29/2022 Accu-Chek Guide test strips StripIndications:diab etes mellitus 1 each by Other route 3 times daily. Use as instructed Indications: diabetes mellitus 300 strip 3 06/12/2022 07/29/2022 Accu-Chek Softclix Lancets MiscIndications:diabe tonja mellitus 1 each by Misc.(Non-Drug; Combo Route) route 3 times daily. Indications: diabetes mellitus 300 each 3 06/12/2022 07/29/2022 Accu-Chek Guide Glucose Meter MiscIndications:diabe tonja mellitus 1 each by Misc.(Non-Drug; Combo Route) route daily. Indications: diabetes mellitus 1 each 06/12/2022 07/29/2022 FLUoxetine (PROzac) 20 mg/5 mL (4 mg/mL) Solution daily. 05/06/2022 07/25/2022 lidocaine (Xylocaine) 2 % Solution TAKE 10 ML BY MOUTH EVERY 8 HOURS WITH ANTACID 04/17/2022 10/31/2022 Antacid-Antigas 200-200-20 mg/5 mL Suspension COMBINE 10 MLS WITH LIDOCAINE ORALLY THREE TIMES A DAY 04/25/2022 10/31/2022 clonazePAM (KlonoPIN) 1 mg Tablet Take 1 mg by mouth 3 times daily as needed. 12/23/2021 03/02/2024 Hydrocortisone 0.5 % Lotion Every 12 hours. 12/06/2021 07/25/2022 acetaminophen (Tylenol) 500 mg Tablet Take 2 tablets by mouth every 8 hours as needed for Pain. Substitute OTC if needed 60 tablet 1 11/16/2021 07/29/2022 vitamin C 500 mg Tablet TAKE ONE TABLET BY MOUTH EVERY DAY 08/24/2021 08/12/2023 mag/aluminum/sod bicarb/alginc (GAVISCON ORAL) Take by mouth. 07/25/2022 sucralfate (Carafate) 1 gram Tablet TAKE 1 TABLET BY MOUTH TWICE DAILY ON AN EMPTY STOMACH 10/11/2020 08/12/2023 documented as of this encounter Progress Notes * Vika Pina MD - 07/18/2022 8:50 PM EDT BP Triage Note Patient ID: Aniya Luque is a 37 y.o. female at 36w0d by 08/15/2022, by Last Menstrual Period who presented for rule out labor. HPI: Aniya presents for lower abdominal cramping increasing in intensity. Of note, she visited yesterday for similar concerns. She stated that the pain had gotten better since she was last seen, but has been increasing in intensity in the past few hours. She was not able to qualify the frequency. No LOF or vaginal bleeding. Does endorse physiologic discharge. She states that she has been takin g all of her medications as prescribed. She is continuing to smoke due to anxiety. She notes that her anxiety is high right now. No thoughts of suicidally. She has finished her iron infusions and notes improvements of symptoms of anemia. Denies GEORGE, visual changes, SOB, chest pain, RUQ pain, and peripheral edema. 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 - Asthma - Cigarette smoking - PTSD, depression, anxiety, borderline personality disorder, has a prescription for Clonazepam 1 mg TID - GERD, on Famotidine 40 mg BID - Obstructive Sleep Apnea, history of requiring CPAP - Anemia, receiving iron infusions at [facility] complete OB History: OB History 4 Para 2 Term 2 AB 1 Living 2 SAB 1 IAB Ectopic Multiple Live Births 2 # Outc Date GA Lbr Eric/2nd Wgt Sex Del Anes PTL Lv 1 SAB 2001 16w0d 2 Term 05/2003 40w4d 3.289 kg (7 lb 4 oz) M Vag-Spont Living 3 Term 04/2009 39w0d 2.977 kg (6 lb 9 oz) Vag-Spont Living 4 Current Gynecologic History: history of abnormal pap smears requiring colposcopy, unsure if she has ever had a LEEP or cone ?? Medications: Amlodipine 2.5 mg in the AM/5 mg in the PM, Clonazepam 1 mg TID, Famotidine 40 mg BID,s/p iron infusions ?? Allergies: penicillin, seroquel, morphine ?? Social History: + history of tobacco use Objective: Patient Vitals for the past 24 hrs: Temp Heart Rate From SP02 Pulse Resp BP SpO2 O2 Device 07/18/22 1800 37 ??C (98.6 ??F) 90 bpm 97 18 120/71 98 % RA 07/18/22 1804 -- 98 bpm -- -- -- 99 % -- Gen: AAO, NAD CV: Regular rate and rhythm, no murmurs, rubs or gallops. Pulm: breath sounds heard in all garcia, clear to auscultation bilaterally. Abd: gravid, non-tender Ext: non-edmatous lower extremities Cervical Exam: Dilation: 1 (07/18/22 193) Effacement: 30 Station: -3 Cervical Position: Posterior Consistency: Soft Coleman Score: 3 OB Examiner: Janeth Price SSE: deferred NST Fetus A 07/18/2022 HR (beats/min) 135 HR Variability moderate (amplitude range 6 to 25 bpm) HR Accelerations present HR Decelerations early Contraction Frequency (Minutes) 1.5-4.5 Nonstress Test Interpretation - Overall Impression - Comments - Results for orders placed or performed during the hospital encounter of 07/11/22 EKG 12 Lead Result Value Ref Range Ventricular rate 76 BPM Atrial Rate 76 BPM P-R Interval 128 ms QRS Duration 76 ms Q-T Interval 390 ms QTC Calculated (Bezet) 438 ms Calculated P Dexter 48 degrees Calculated R Dexter 25 degrees Calculated T Dexter 38 degrees INTERPRETATION Normal sinus rhythm Normal ECG When compared with ECG of 28-JUN-2022 11:24, No significant change was found I personally reviewed the tracing and edited the fellows interpretation Confirmed by fellow MD Jeannette, Bird ([id number]) on 07/13/2022 12:48:08 PM Confirmed by MD Harish, Graham Alarcon ([id number]) on 07/13/2022 12:50:51 PM Assessment/Plan: Aniya Luque is a 37 y.o. who presented for evaluation of rule out labor. Exam unchanged from prior exams on 07/11 and 07/17, as well as after 2 hour recheck. Encouraged abdominal support band, hydration, tylenol, stretching, and rest to address back and leg aching. History of chronic HTNwith blood pressures wnl today and denies symptoms concerning for superimposed preeclampsia. w ell being reassuring with reactive NST. Patient counseled on signs and symptoms of labor and discharged to home with instructions to call if she experienced regular painful contractions, decreased movement, vaginal bleeding or loss of fluid. Has upcoming appointment on 07/19/22. Patient seen and discussed with Dr. Silvana MD. Janeth Gonzalez, 07/18/2022 11:28 PM Attending note I saw and evaluated the patient with Dr Gonzalez (resident physician.) I have reviewed the resident's history during the visit and I agree with the details as written. My physical examination confirms and/or revises the resident's findings. The assessment and plan were formulated in discussion with me at the time of the visit and I agree with them as documented. Pt does not appear to be in labor. Sx seem more consistent with discomforts of late . Reassuring maternal and status. I personally reviewed and interpreted the NST and agree with its interpretation. Vika Pina MD * Jerilyn Del Valle RN - 07/18/2022 8:25 PM EDT Patient discharged from the unit in stable condition after discharge instructions/labor precautionswere reviewed. Paperwork given to patient and all questions were answered. NST was reactive per GA.Cervix unchanged throughout multiple hour stay. Pt and partner felt comfortable with plan for d/c and to f/u as needed. Patient ambulated off the unit without any signs of distress. documented in this encounter Plan of Treatment Upcoming Encounters Date Type Department Care Team (Late st Contact Info) Description 09/21/2024 8:15 AM EST Routine Obstetrics [place] [address] Emili Cabrera MD [facility] [place] [address] 09/26/2024 6:00 PM EST Appointment [facility] [place] [address] 10/16/2024 [place] [address] Dudley Aguilar MD [facility] [address] OBSTETRICS [place] [address] 11/08/2024 10:00 AM EST Hospital Encounter Non-Invasive [place] [address] Arrived documented as of this encounter Visit Diagnoses Not on filedocumented in this encounter Care Teams Superintendent Track Relationship Specialty Start Date End Date None None PCP - General 05/30/22 09/28/23 documented as of this encounter
--- OUTSIDE RECORDS SUMMARY | 2024-09-20 11:05 | XMS_ITS | Encounter Summary ---
Author Organization [facility] [place] [address] Care Team Providers Care Dry Heat Room Attendant Name Role Phone None Primary Care Provider Unavailabl e Encounter Details Date Type Department Care Team (Late st Contact Info) Description 07/31/2022 9:00 AM EDT Office Visit Obstetrics [place]cology [place] [phone] Chronic hypertension in Social History Tobacco Use [...] Sign Reading Time Taken Comments Blood Pressure 139/92 07/31/2022 10:15 AM EDT Pulse 89 07/31/2022 10:15 AM EDT Temperature 36.8 ??C (98.2 ??F) 07/31/2022 10:15 AM E DT Respiratory Rate 14 07/31/2022 10:15 AM EDT Oxygen Saturation 99% 07/31/2022 10:15 AM EDT Inhaled Oxygen Concentration - - Weight - - Height - - Body Mass Index - - documented in this encounter Progress Notes * Kristie Davis RN - 07/31/2022 9:00 AM EDTSummary: BP Check Aniya Luque presents to clinic for BP check after spontaneous vaginal delivery of viable baby girl on 07/26/2022. Pt has history of cardiac arrest- secondary to??severe coronary vasospasm during COVID infection in September 2021. Now with ICD in place and follows with cardiology. LVEF 68% on last echo. Pt also has hx pneumonia in this . cHTN managed on amlodipine??2.5mg am and 5mg pm. (PM dose changed to 5mg at CV visit). Reports overall not doing well. Not . Reports lochia as intermittently heavy, sometimes darker or bright red in color, changing a pad in variable times. Bleeding will taper, and then will orange picking supervisor in heaviness. No large clots since first day home from hospital. Denies saturating pads hourly. Experiencing cramping pain in back. 7/10 intensity. States has been having headaches unrelieved by tylenol/rest and feeling clammy (onset approx 2 days ago). Sees black spots and squiggly white lines in peripheral vision. Has been dizzy. Was feeling flushed this morning and took temp (ear). 100.1F. Experiencing diffuse abdominal pain since delivery. Denies edema. Vital Signs: BP- 139/92 ARMOND HR- 89 Temp- 98.2F Resp- 14 Pulse Ox- 99% RA Pain- 7/10 ?? Reviewed with Anitha Blankenship, recommends pt be seen on BP for assessment for pp pre-eclampsia and ruling out endometritis/other infection. RN called BP and gave report to lead project manager Jenn. Clinic RNtransported pt to BP via wheelchair, accompanied by Camron from [employer], who arrived to check status of patient ICD. documented in this encounter Plan of Treatment Upcoming Encounters Date Type Department Care Team (Late st Contact Info) Description 09/21/2024 8:15 AM EST Routine Obstetrics [place]cology [place] [address] Emili Cabrera MD [facility] [place] [address] 09/26/2024 6:00 PM EST Appointment [facility] [place] [address] 10/16/2024 Hospital [place] [phone] Dudley Aguilar MD [facility] [place] [address] 11/08/2024 10:00 AM EST Hospital Encounter Non[place] [address] Arrived documented as of this encounter Visit Diagnoses Diagnosis Chronic hypertension in Benign essential hypertension complicating , childbirth, and the puerperium, unspecified as to episode of care documented in this encounter Care Teams Dry Heat Room Attendant Relationship Specialty Start Date End Date None None PCP - General 05/30/22 09/28/23 documented as of this encounter
--- OUTSIDE RECORDS SUMMARY | 2024-09-20 11:05 | XMS_ITS | Encounter Summary ---
Author Organization Replaced By [facility] Address [facility] [place] [address] Care Team Providers Care Roto Rooter Operator Name Role Phone None Primary Care Provider Unavailabl e Encounter Details Date Type Department Care Team (Late st Contact Info) Description 07/11/2022 Telephone Obstetrics [place] [address] Willow Clifton MD [facility] DR OBSTETRICS & [place] [address] Social History Tobacco Use Types Packs/Day Years [...] AM EST Routine Obstetrics [place] [phone] Emili Cabrera MD [facility] [place] [address] 09/26/2024 6:00 PM EST Appointment [facility] [place] [address] 10/16/2024 Hospital [place] [phone] Dudley Aguilar MD [facility] DR OBSTETRICS [place] [address] 11/08/2024 10:00 AM EST Hospital Encounter Non-Invasive [place] [address] Arrived documented as of this encounter Visit Diagnoses Not on filedocumented in this encounter Care Teams Roto Rooter Operator Relationship Specialty Start Date End Date None None PCP - General 05/30/22 09/28/23 documented as of this encounter
--- OUTSIDE RECORDS SUMMARY | 2024-09-20 11:05 | XMS_ITS | Encounter Summary ---
Author Organization [facility] Address [facility] [place] [address] Care Team Providers Care Professor Of Biostatistics Name Role Phone None Primary Care Provider Unavailabl e Encounter Details Date Type Department Care Team (Late st Contact Info) Description 07/30/2022 Orders Only Cardiology at [address] [phone] Social History Tobacco Use Types [...] AM EST Routine Obstetrics [place] [address] Emili Cabrera MD [facility] [place] [address] 09/26/2024 6:[address] [facility] [place] [address] 10/16/2024 Hospital Encounter [place] [address] Dudley Aguilar MD [facility] OBSTETRICS AND GYNECOLOGY [place] [id number] 11/08/2024 10:00 AM EST Hospital Encounter Non-[place] [address] Arrived documented as of this encounter Procedures Procedure Name Priority Date/Time Associated Diagnosis Comments CARDIAC DEVICE CHECK - REMOTE DEVICE INITIATED Routine 07/30/2022 8:11 AM EDT documented in this encounter Results * Cardiac device check - Remote Device Initiated (07/30/2022 8:11 AM EDT) Implantable Pulse Generator Type Defibrillator IDCO Implantable Pulse Generator Model A219 IDCO Implantable Pulse Generator Serial Number [id number] IDCO Implantable Pulse Generator Carbon Sequestration Plant Engineer [employer] IDCO Implantable Pulse Generator Implant Date [id number] IDCO Date Time Interrogation Session IDCO Type Interrogation Session Remote Device Initiated IDCO Clinic Name [facility] IDCO Battery Date Time of Measurements [...] IDCO Episode Statistic Total Date Time End [id number] IDCO Episode Statistic Type Category VF IDCO [...] Model 3501 IDCO Implantable Lead Serial Number [id number] IDCO Implantable Lead Carbon Sequestration Plant Engineer Pansieve IDCO Implantable Lead Location Other IDCO Implantable Lead Location Detail 1 Subcutaneous IDCO Anatomical Region Laterality Modality Other 07/30/2022 8:11 AM EDT Physician Cardiology IMPLANTABLE CARD IAC DEVICE documented in this encounter Visit Diagnoses Not on filedocumented in this encounter Care Teams Professor Of Biostatistics Relationship Specialty Start Date End Date None None PCP - General 05/30/22 09/28/23 documented as of this encounter
--- OUTSIDE RECORDS SUMMARY | 2024-09-20 11:05 | XMS_ITS | Encounter Summary ---
Author Organization [facility] Address [facility] [place] [address] Care Team Providers Care Lymphedema Therapist Name Role Phone None Primary Care Provider Unavailabl e Encounter Details Date Type Department Care Team (Latest Contact Info) Description 07/17/2022 8:21 AM EDT - 07/17/2022 11:28 AM EDT [place] [phone] Floyd Wang MD [facility] [place] [address] Discharge Disposition: Home Social History Tobacco Use [...] Sign Reading Time Taken Comments Blood Pressure 116/90 07/17/2022 8:40 AM EDT Pulse 96 07/17/2022 8:40 AM EDT Temperature 36.9 ??C (98.4 ??F) 07/17/2022 8:40 AM ED T Respiratory Rate - - Oxygen Saturation 100% 07/17/2022 8:40 AM EDT Inhaled Oxygen Concentration - - Weight - - Height - - Body Mass Index - - documented in this encounter Discharge Instructions * Discharge Instructions* Shana Paulino, RN - 07/17/2022 11:18 [place] [address] [facility] Aniya Luque 07/17/22 11:18 AM Following your visit to [facility] Triage Call your doctor or block piler for: Seizure (call 911) Chest pain Shortness of breath Headache which isn't relieved with Tylenol Headache with visual changes Abdominal pain Swelling to hands and face A temperature at or above 100.4F Nausea or vomiting Gestation - under 37 weeks Call your doctor or block piler if: You experience any menstrual like cramping [...] a vaginal exam in your doctor's or block piler's office you should not bleed as much [...] over 37 weeks Call your doctor or block piler if: You are having painful contractions/abdominal cramps [...] a vaginal exam in your doctor's or block piler's office you should not bleed as much [...] dehydration. Keep your regularly scheduled doctor or block piler appointment. Vaccination If you received the Measles, Mumps, and Rubella (MMR) vaccine, varicella vaccine, or Hepatitis A vaccine during your hospitalization make sure to discuss this with your OB provider or your PCP at your next visit. You may need a second dose of the vaccine to receive effective vaccine protection. Your [facility] Provider can be reached during office hours at [facility] AFTER OFFICE HOURS: Call and ask for the boring inspector or block piler diamond finishing supervisor documented in this encounter Medications at Time of Discharge Medication Sig Dispensed Refills Start Date End Date fluticasone propionate (Flonase) 50 mcg/actuation [place], SuspensionIndications :allergic rhinitis 1 spray by Each [...] as of this encounter Progress Notes * Shana Paulino RN - 07/17/2022 11:28 AM EDTSummary: Discharge Patient met with MD Clifton and MD Wang. Discharge educational completed and questions answered. Patient discharged home undelivered. Patient scheduled for upcoming IOL. * Willow Clifton MD - 07/17/2022 8:39 AM EDT BP Triage Note Patient ID: Aniya Luque is a 37 y.o. female at 35w6d by 08/15/2022, by Last Menstrual Period who presented for rule out labor. HPI: Aniya presents alone today. She notes that she began having some diarrhea and intermittent pelvic cramping as well as back pain last night. Unsure of frequency. Does have some leaking with sneezing and coughing though not persistent leaking. Denies vaginal bleeding or decreased movement. Denies vomiting though does have some nausea associated with her diarrhea. Denies fevers, burningwith urination. Does have some back and thigh aching pain associated with her cramping pelvic pain.Did have a mild headache this morning for which she took Tylenol with improvement in her headache. Denies blurred vision, RUQ pain. Does have some mild baseline chest pain which she has chronically secondary to anxiety and which is no worse today than usual. Notes she was having some shortness of breath with her cramping pelvic pain. Her is notable for: - Chronic Hypertension, [...] CPAP - Anemia, receiving iron infusions at [facility] OB History: OB History 4 Para 2 [...] Clonazepam 1 mg TID, Famotidine 40 mg BID,iron infusions ?? Allergies: penicillin, seroquel, morphine ?? Social History: + history of tobacco use Objective: Patient Vitals for the past 24 hrs: Temp Heart Rate From SP02 Pulse BP SpO2 07/17/22 0840 36.9 ??C (98.4 ??F) 95 bpm 96 116/90 100 % Gen: AAO, NAD CV: Regular rate and rhythm, no murmurs, rubs or gallops. Pulm: breath sounds heard in all garcia, clear to auscultation bilaterally. Abd: gravid, non-tender Ext: non-edmatous lower extremities Cervical Exam: Dilation: 1 (07/17/22 0832) Effacement: 30 Station: -3 Cervical Position: Mid-Position Consistency: Soft Coleman Score: 4 OB Examiner: Willow Clifton SSE: deferred NST Fetus A 07/17/2022 HR (beats/min) 125 HR Variability moderate (amplitude range 6 to 25 bpm) HR Accelerations present HR Decelerations absent Contraction Frequency (Minutes) 4-5 Nonstress Test Interpretation - Overall Impression - Comments - Results for orders placed or performed during the hospital encounter of 07/11/22 EKG 12 Lead Result Value Ref Range Ventricular rate 76 BPM Atrial Rate 76 BPM P-R Interval 128 ms QRS Duration 76 ms Q-T Interval 390 ms QTC Calculated (Bezet) 438 ms Calculated P Jackson 48 degrees Calculated R Jackson 25 degrees Calculated T Jackson 38 degrees INTERPRETATION Normal sinus rhythm Normal ECG When compared with ECG of 28-JUN-2022 11:24, No significant change was found I personally reviewed the tracing and edited the fellows interpretation Confirmed by fellow MD Jeannette, Max ([id number]) on 07/13/2022 12:48:08 PM Confirmed by MD Harish, Graham Alarcon ([id number]) on 07/13/2022 12:50:51 PM Assessment/Plan: Aniya Luque is a 37 y.o. who presented for evaluation of rule out labor. Exam unchanged from last exam on 07/11 as well as after 2 hour recheck. Pelvic cramping and discomfort improved with hydration and rest. Encouraged abdominal support band, hydration, tylenol, stretching, and rest to address back and leg aching. History of chronic HTN with diastolic BP of 90 today though denies symptoms concerning for superimposed preeclampsia. well being reassuring with reactive NST. Patient counseled on signs and symptoms of labor and discharged to home with instructions to call if sheexperienced regular painful contractions, decreased movement, vaginal bleeding or loss of flui d. Has upcoming appointment on 07/19/22. Patient seen and discussed with Dr. Floyd Wang MD. Willow Clifton MD 07/17/2022 10:03 AM Associated attestation - Floyd Wang MD - 07/17/2022 5:43 PM EDT Patient seen, chart reviewed, discussed with team and agree with resident note. Not quite in labor. OK for discharge home. MD Jaden documented in this encounter Plan of Treatment Upcoming Encounters Date Type Department Care Team (Late st Contact Info) Description 09/21/2024 8:15 AM EST Routine Obstetrics [place] [phone] Emili Cabrera MD [facility] [place] [address] 09/26/2024 6:00 PM EST Appointment [facility] [place] [phone] 10/16/2024 [place] [phone] Dudley Aguilar MD [facility] [place] [address] 11/08/2024 10:00 AM EST Hospital Encounter Non-Invasive [place] [phone] Arrived documented as of this encounter Visit Diagnoses Not on filedocumented in this encounter Care Teams Lymphedema Therapist Relationship Specialty Start Date End Date None None PCP - General 05/30/22 09/28/23 documented as of this encounter
--- OUTSIDE RECORDS SUMMARY | 2024-09-20 11:05 | XMS_ITS | Encounter Summary ---
Author Organization [facility] [place] [address] Care Team Providers Care Toe Lining Closer Name Role Phone None Primary Care Provider Unavailabl e Reason for Visit * Reason Onset Date Comments Other 07/30/2022 Device alerting Encounter Details Date Type Department Care Team (Late st Contact Info) Description 07/30/2022 Telephone Cardiology at [address] [phone] Carolina Rojo Other (Device alerting) Social History Tobacco Use Types Packs/Day Years [...] encounter Miscellaneous Notes * Telephone Encounter - Carolina Rojo, WELT STITCHER - 07/30/2022 2:43 PM EDT Patient called because her ICD is alerting. She had a magnet put over her device for an extended time last week due to labor induction. As a result, it is alerting a Battery Fault Code. The BSX Rep as well as myself spoke to [employer] and verified this is a false alarm. They ran diagnosticsand her device battery is fine. The patient has an appointment tomorrow at 9am in machined parts quality inspector area [facility]. I called [facility] and asked if our [employer] Rep could put the applications programmer analyst on her to stop her device from alarming while she is up there. Alla Bhatt, RN has approved this. I let the patient knowthat Camron Martinez, whom she has previously met, will meet her at [facility] to reset the alarm so it will stop. I reassured the patient that there isn't anything wrong with the device. documented in this encounter Plan of Treatment Upcoming Encounters Date Type Department Care Team (Late st Contact Info) Description 09/21/2024 8:15 AM EST Routine Obstetrics [place] [phone] Emili Cabrera MD [facility] MATERNAL [place] [address] 09/26/2024 6:00 PM EST Appointment [facility] [place] [phone] 10/16/2024 Hospital [place] [phone] Dudley Aguilar MD [facility] DR OBSTETRICS [place] [address] 11/08/2024 10:00 AM EST Hospital Encounter Non[place] [phone] Arrived documented as of this encounter Visit Diagnoses Not on filedocumented in this encounter Care Teams Toe Lining Closer Relationship Specialty Start Date End Date None None PCP - General 05/30/22 09/28/23 documented as of this encounter
--- OUTSIDE RECORDS SUMMARY | 2024-09-20 11:05 | XMS_ITS | Encounter Summary ---
Author Organization [facility] [place] [address] Care Team Providers Care Advanced Developer Name Role Phone None Primary Care Provider Unavailabl e Encounter Details Date Type Department Care Team (Late st Contact Info) Description 07/31/2022 Telephone Obstetrics [place] [phone] Cristine Carrero Social History Tobacco Use Types Packs/Day Years [...] AM EST Routine Obstetrics [place] [phone] Emili Cabrera MD [facility] MATERNAL [place] [address] 09/26/2024 6:[address] [facility] [place] [address] 10/16/2024 Hospital Encounter [place] [address] Dudley Aguilar MD [facility] DR OBSTETRICS AND [place] [address] 11/08/2024 10:00 AM EST Hospital Encounter Non-[place] [address] Arrived documented as of this encounter Visit Diagnoses Not on filedocumented in this encounter Additional Health Concerns Infection Onset Date Last Indicated Resolved Time Rule Out Respiratory 07/31/2022 07/31/2022 022 11:50 AM EDT Rule Out COVID-19 07/31/2022 07/31/2022 07/31/2022 1:35 PM EDT documented as of this encounter Care Teams Advanced Developer Relationship Specialty Start Date End Date None None PCP - General 05/30/22 09/28/23 documented as of this encounter
--- OUTSIDE RECORDS SUMMARY | 2024-09-20 11:05 | XMS_ITS | Encounter Summary ---
Author Organization [facility]ly [facility] Address [facility] [place] [address] Care Team Providers Care Graduate Intern Name Role Phone None Primary Care Provider Unavailabl e Reason for Referral * [facility] Maternal Child Health (Routine) - Canceled Specialty Diagnoses / Procedures Referred By Contac t Referred To Contact Diagnoses Single liveborn, born in hospital, delivered by vaginal delivery Kaila Hameed MD [facility] OBSTETRICS [place] [address] [facility] Maternal Child [address] [place] [id number] Referral ID Status Reason Start Date Expiration Date Visits Requested Visits Authorized [id number] Canceled Specialty Service Requested 2 07/29/2023 999 999 Reason for Visit * Auth/Cert Specialty Diagnoses / Procedures Referred By Contac t Referred To Contact Diagnoses . Procedures VAGINAL DELIVERY Kaila Hameed MD [facility] OBSTETRICS [place] [address] [facility] Referral ID Status Reason Start Date Expiration Date Visits Re quested Visits Authorized [id number] 1 1 Encounter Details Date Type Department Care Team (Latest Contact Info) Description 07/25/2022 11:03 AM EDT - 07/29/2022 11:23 AM EDT [facility] [place] [phone] Kaila Hameed MD [facility] DR OBSTETRICS [place] [address] Single liveborn, born in hospital, delivered by vaginal delivery Discharge Disposition: Home Social History Tobacco Use [...] Sign Reading Time Taken Comments Blood Pressure 131/74 07/29/2022 9:35 AM EDT Pulse 76 07/29/2022 9:35 AM EDT Temperature 36.5 ??C (97.7 ??F) 07/29/2022 9:35 AM ED T Respiratory Rate 18 07/29/2022 9:35 AM EDT Oxygen Saturation 99% 07/29/2022 9:35 AM EDT Inhaled Oxygen Concentration - - Weight 77.6 kg (171 lb) 07/25/2022 11:33 AM EDT Height 162.6 cm (5' 4) 07/25/2022 11:33 AM EDT Body Mass Index 29.35 07/25/2022 11:33 AM EDT documented in this encounter Discharge Summaries * Willow Clifton MD - 07/25/2022 4:50 PM EDT Images from the original note were not included. Discharge Summary Patient Name: Jose Juan Lundy Patient Age: 37 y.o. Language: Lao Race: White Ethnicity: Not nor Admit date: 07/25/2022 Discharge date and time: Attending Physician: Kaila Hameed MD Discharge Physician: Kaila Hameed MD Care Provider: Follow-up Recommendations for Providers: - blood pressure check, for 5-7 days (admitted through PPD#3) - 2 week mood check - 6 week PP visit Inpatient Provider Contact Information: HIV PREVENTION SPECIALIST patient line, Care Provider: Maternal Medicine Referring Provider if applicable: n/a Discharge Diagnoses (Hospital Problems) and Secondary Diagnoses (Chronic Problems): Active Hospital Problems Diagnosis ??? Encounter for induction of labor Resolved Hospital Problems No resolved problems to display. Active Non-Hospital Problems Diagnosis ??? Subcutaneous defibrillator implanted 11/12/2021 ??? Cigarette smoker ??? Coronary artery vasospasm ??? *History of COVID-19 ??? Cardiac arrest ??? Gastroesophageal reflux disease ??? Borderline personality disorder ??? Post-traumatic stress disorder, chronic ??? Anxiety disorder, unspecified ??? Chest pain ??? Skin disease ??? Depression ??? Asthma ??? Hypertension ??? Tachycardia ??? Recurrent major depressive episodes, moderate Operations/Major Procedures: 07/26/2022: Vaginal delivery, EBL 50, no repair required History of Presentation: Jose Juan Lundy is a 37 y.o. at 37w0d gestation being admitted for induction of labor in the setting of chronic hypertension and history of cardiac arrest in 09/2021. ?? Jose Juan reports that she is ready for this to be over. She endorses feeling contractions. She is also endorsing upper abdominal pain. Denies vaginal bleeding or LOF. No headache or vision changes. No chest pain or shortness of breath at present. She is overall very anxious about this process. Shedoes endorse and headache that has been ongoing for a few days for which Tylenol is helping. ?? Her has been complicated by: -- History of cardiac arrest- secondary to severe coronary vasospasm during COVID infection in September 2021. Now with ICD in place and follows with cardiology. LVEF 68% on last echo. -- Pneumonia in this : -- cHTN: managed on amlodipine 2.5mg -- Tobacco use disorder -- GERD: on famotidine and viscous lidocaine daily -- Anxiety -- Asthma: using albuterol and nebulizer as needed Hospital Course: She was found to be 1/20/-4 on admission and progressed to fully dilated with 1xPV miso, carreno and AROM augmentation. She pushed for 5 mnutes and delivered a viable female infant with apgars of 8 and9 at 1 and 5 minutes. Inspection of the vagina and perineum revealed a small first degree laceration which was hemostatic and did not require repairt. The sulci were examined and found have R sided abrasions. Nucalx1 was reduced without incident. Blood loss estimated at 50 ccs. She was in stable condition after delivery. The infant remained in stable condition at the bedside. (see delivery note for more information). Jose Juan's blood pressures were closely monitored following delivery. She was seen by Cardiology on day 2, at which time her evening dose of Amlodipine was increased to 5 mg from 2.5 mg; her AM dose remained at 2.5 mg. She was discharged on this dose (2.5 mg in the AM, 5 mg in the PM) on day 3 with plans for outpatient follow up with cardiology. Jose Juan continued to express and demonstrate some anxiety while admitted. She was noted to be intermittently tearful on days 1 and 2, though her affect was visibly improved on PPD3 when told she was being discharged. She denied suicidal ideation, homicidal ideation, or thoughts of self-harm during her admission. She did continued to note some pain pelvic pain with associatedintermittent cramping as well as breast tenderness with engorgement. She was given motrin, tylenol,and a breast binder for these concerns. Patient otherwise recovered well following delivery. By the day of discharge, the patient was eating, drinking, voiding, and ambulating without difficulty. She was bottle feeding the infant, as per her request, and desired Norethindrone pills for contraception. Her pain was controlled with PO pain medications and her lochia was mild. She denied fevers, chills, headache, nausea, vomiting, chest pain, shortness of breath, and leg pain Vital signs at Discharge: BP: 131/74, Heart Rate: 76, Temp: 36.5 ??C (97.7 ??F), Resp: 18, BMI (Calculated): 29.35 Height: 162.6 cm (5' 4) (07/25/22 1133) Weight: 77.6 kg (171 lb) (07/25/22 1133) Functional and Cognitive status: at baseline Important Studies and Lab Data: none pending Labs: Recent Labs 07/25/22 1237 WBC 13.6* RBC 3.65* HGB 11.1* HCT 32.5* MCV 89.0 MCH 30.4 MCHC 34.2 PLATELET 296 RDWCV 16.3* Discharge Conditions/Prognosis: good Discharge to: home Updated Allergies/ADRs: Allergies Allergen Reactions ??? Augmentin [Amoxicillin-Pot Clavulanate] Rash Unsure if allergic ??? Ipratropium Other (See Comments) ??? Morphine Other (See Comments) Cannot recall ??? Penicillins Rash Patient denies allergy. Take amoxicillin w/o reactions. ??? Seroquel [Quetiapine] Other (See Comments) Made head feel loopy. Immunizations Given this Hospitalization: Immunization History Administered Date(s) Administered ??? Influenza Vaccine PF, Quadrivalent 09/12/2010, 07/29/2012, 07/18/2015, 07/28/2018 ??? Tdap Vaccine 07/05/2022 Discharge Medications: Your Medications New Medications Dose Details docusate sodium 100 mg Cap Commonly known as: Colace Take 1 capsule by mouth 2 times daily for 10 days. 100 mg Quantity: 20 capsule Refills: 0 ibuprofen 600 mg Tab Commonly known as: Advil Take 1 tablet by mouth every 6 hours. 600 mg Quantity: 30 tablet Refills: 12 nicotine 14 mg/24 hr Pt24 Commonly known as: Nicoderm CQ Change 1 patch on the skin daily. 1 patch Quantity: 28 patch Refills: 0 norethindrone 0.35 mg Tab Commonly known as: MICRONOR Take 1 tablet by mouth daily. Must take at EXACTLY the same time every day 1 tablet Quantity: 84 tablet Refills: 3 polyethylene glycoL 17 gram Pwpk Commonly known as: Miralax Take 17 g by mouth daily. 17 g Quantity: 14 each Refills: 0 Continued medications with new dosing Dose Details acetaminophen 325 mg Tab Commonly known as: Tylenol Take 3 tablets by mouth every 6 hours as needed for Pain. What changed: ?? medication strength ?? how much to take ?? when to take this ?? additional instructions 975 mg Quantity: 30 tablet Refills: 1 Continued medications, unchanged Dose Details albuteroL 90 mcg/actuation Hfaa Inhale 2 puffs into the lungs every 4 hours as needed for Wheezing. Use with spacer 2 puff Refills: 0 Antacid-Antigas 200-200-20 mg/5 mL Susp COMBINE 10 MLS WITH LIDOCAINE ORALLY THREE TIMES A DAY Generic drug: alum-mag hydroxide-simeth Refills: 0 calcium carbonate 200 mg calcium (500 mg) Chew Commonly known as: Tums Take 1 tablet by mouth as needed. 1 tablet Refills: 0 cetirizine 10 mg Tab Commonly known as: ZyrTEC TAKE ONE TABLET BY MOUTH EVERY DAY Refills: 0 clonazePAM 1 mg Tab Commonly known as: KlonoPIN Take 1 mg by mouth 3 times daily as needed. 1 mg Refills: 0 famotidine 40 mg Tab Commonly known as: Pepcid Take 1 tablet by mouth 2 times daily. 40 mg Quantity: 60 tablet Refills: 5 * Flovent HFA 110 mcg/actuation Hfaa Every 12 hours. Generic drug: fluticasone propionate Refills: 0 * fluticasone propionate 50 mcg/actuation Spsn Commonly known as: Flonase 1 spray by Each Nare route nightly. Substitute OTC if needed Indications: inflammation of the nose due to an allergy 1 spray Quantity: 16 g Refills: 1 ipratropium-albuteroL 0.5 mg-3 mg(2.5 mg base)/3 mL Nebu Commonly known as: Duoneb Every 6 hours. Refills: 0 lidocaine 2 % Soln Commonly known as: Xylocaine TAKE 10 ML BY MOUTH EVERY 8 HOURS WITH ANTACID Refills: 0 nitroGLYcerin 0.4 mg Subl Commonly known as: Nitrostat Place 1 tablet under the tongue every 5 minutes as needed for Chest pain. 0.4 mg Quantity: 30 tablet Refills: 1 Norvasc 2.5 mg Tab Take 1 tablet by mouth 2 times daily. Take 1 tablet in the morning and 2 tablets at night. Generic drug: amLODIPine 2.5 mg Quantity: 180 tablet Refills: 1 sucralfate 1 gram Tab Commonly known as: Carafate TAKE 1 TABLET BY MOUTH TWICE DAILY ON AN EMPTY STOMACH Refills: 0 vitamin C 500 mg Tab TAKE ONE TABLET BY MOUTH EVERY DAY Generic drug: ascorbic acid (Vitamin C) Refills: 0 * This list has 2 medication(s) that are the same as other medications prescribed for you. Read thedirections carefully, and ask your doctor or other care provider to review them with you. STOPPED Medications Accu-Chek Guide Glucose Meter Misc Generic drug: Blood-Glucose Meter Accu-Chek Guide test strips Strp Generic drug: blood sugar diagnostic strips Accu-Chek Softclix Lancets Misc Generic drug: lancets cefPODOXime 200 mg Tab Commonly known as: Vantin FLUoxetine 20 mg/5 mL (4 mg/mL) Soln Commonly known as: PROzac GAVISCON ORAL Hydrocortisone 0.5 % Lotn terconazole 0.4 % Crea Commonly known as: TERAZOL 7 Smoking Status at Discharge: Social History Tobacco Use Smoking Status Current Every Day Smoker ??? Packs/day: 1.00 ??? Years: 15.00 ??? Pack years: 15.00 ??? Types: Cigarettes Smokeless Tobacco Never Used Tobacco Comment Smokess 0.5 - 1 packs of cigarettes daily x 13 - 14 years. Ordered for After Discharge: Amb Referral to [facility] Maternal Child Health Referral Priority: Routine Referral Type: [facility] Maternal Child Health Referral Reason: Specialty Service Requested Number of Visits Requested: 999 Follow-up Order Comments: - Blood pressure check sometime day 5-7 - 2 week mood check - 6 week routine visit - Cardiology follow up - cardiology to schedule Instructions Given to Patient at Discharge: There are no outpatient Patient Instructions on file for this admission. General Instructions Nurse Inpatient Note - Vaginal Delivery Follow-ups: ? 2 week and 6 week visit will be scheduled with your primary OB provider Maternal Discharge Instructions Rest: Although it may seem impossible to get enough rest, simple planning will help. Plan to rest, and/or sleep when your baby does. Limiting visitors also helps. Other family members can help by doing housework, caring for other children and/or helping limit visitors. Activity: Exercise can be gradually increased following your delivery, depending on the doctor's recommendation. It is recommended that you do not swim until the vaginal bleeding stops or perform anyheavy lifting for six weeks. ???Aim to stay active for 20-30 minutes a day. When you first start exercising after childbirth, try simple exercises that help strengthen major muscle groups, including abdominal and backmuscles. Gradually add moderate- intensity exercise. Remember, even 10 minutes of exercise benefits your body. If you exercised vigorously before or you are a manager of development, you can work up to vigorous-intensity activity. Stop exercising if you feel pain.?? https://www.acog.org/Patients/FAQs/Pxiwonhm-Pjvfv-Kloplayos?IsMobileSet=false#ho w Nutrition: Your diet following the of your baby is as important as it was before the baby wasborn. Drinking a minimum of 6-8 glasses of water a day will help keep you hydrated. Continue takingyour vitamins until you are no longer . Do not attempt to lose weight during the first six weeks. Sweating. Hormonal changes following delivery frequently cause night sweats which are normal over the next 6 weeks. Sleeping on towels and using a fan may make you more comfortable. Lochia: (Flow) Your flow should be no heavier than a normal period. It will be bright red and then transition to pink, brown, yellow, and finally colorless. This may last a few weeks. If your vaginalbleeding becomes bright red again, decrease your activity. We recommend pelvic rest until your bleeding and spotting stops and your episiotomy or vaginal tearhas healed. This may take up to six weeks. Pelvic rest includes activities such as douching, use oftampons/menstrual cups or sexual intercourse. Bladder: For the next 2 weeks, empty your bladder every 2 hours while awake and at least every 4 hours at night. Perineum: For about a week continue to rinse yourself with warm water when you use the toilet. A sitz bath with Epsom salt taken 2 times a day and use of witch sergei may help relieve soreness. Kegel exercise, done regularly throughout the day, will help tighten the perineal muscles and speed recovery. If you received any stitches, these will dissolve on their own and do not need to be removed. If you had a 3rd degree or 4th degree vaginal laceration continue taking stool softeners as recommended by the doctor. Breast Care for Formula feeding mothers: Wear a well-fitting bra to support your breasts. Ice packsto your breasts (10 minutes at a time) as well as alternating Tylenol and Ibuprofen may be used to relieve discomfort from engorgement. Avoid stimulating your breasts: Do not let warm water from the shower fall directly on your breast;do not express any colostrum; avoid holding your baby near your breasts until your milk begins to decrease and engorgement is relieved. Breast Care for mothers: Practice careful positioning and frequent feeding as demonstrated in the hospital. The printed information in your packet covers this in detail. For More Information: https://www.acog.org/Patients or refer to ACOG's Your and Childbirth: Month to Month book which you may have received from the OB Clinic. Vaccination: If you received the Measles, Mumps, and Rubella (MMR) vaccine, varicella vaccine, or Hepatitis A vaccine during your hospitalization make sure to discuss this with your OB provider or your PCP at your next visit. You may need a second dose of the vaccine to receive effective vaccine protection. Medications: o Please take your medication exactly as prescribed. Read all instructions that come with your medication. o Using narcotic pain medication (such as oxycodone, hydromorphone (Dilaudid), morphine, fentanyl, or tramadol) may cause addiction. While addiction is more common in people with a personal or familyhistory of addiction, it can occur in anyone. o Taking more than the prescribed amount of medication or using with alcohol or other drugs can cause you to stop breathing resulting in coma, brain damage, or . o Opioids (oxycodone, hydromorphone/Dilaudid, morphine, fentanyl, tramadol) can slow reaction time,cause drowsiness, or cloud judgement. It is unsafe for you to drive or operate heavy machinery while taking this medication. o Opioids (oxycodone, hydromorphone/Dilaudid, morphine, fentanyl, tramadol) are at risk of being diverted by anyone with access to your home. Opioids should be stored in a safe and secure place, suchas a locked cabinet or safe. o Unused opioids (oxycodone, hydromorphone/Dilaudid, morphine, fentanyl, tramadol) should be disposed of according to the label or patient information. If there are no specific instructions, medications may be returned to a take- back location or mixed with a small amount of water and an undesirablewaste substance such as coffee grounds or cat litter. o If you were taking opioids like heroin, methadone, Percocet and buprenorphine during and you stopped for any period of time, you are now more sensitive to this drug. That means that your old dose will be too strong, and you will be at risk for overdose if you take it. o As we all are aware, opioid use is a concern in [place] and [place]. We recommend that families with any member at risk for overdose have a prescription for naloxone to reverse an overdose. Your providers would be happy to give you one. Call your doctor or boat hand for: ??? Seizure (call 911) ??? Headache which isn't relieved with Tylenol ??? Headache with visual changes ??? Pain in your chest ??? Shortness of breath ??? Pain in upper right abdomen ??? Fever more than 100.4 F ??? Breast with hot, hard, tender areas plus flu-like symptoms including muscle aches and feeling unwell all over ??? Increased abdominal pain, nausea, shaking chills ??? Increased pain in the area of stitches outside your vagina ??? Heavy bleeding that saturates a pad an hour ??? Clots larger than an egg ??? Red or swollen leg which is painful or warm to the touch ??? Feeling of bladder fullness or pain ??? Unable to urinate when feeling the urge ??? Pain or bleeding with urination ??? Urinary leakage without coughing or sneezing ??? Urinary urgency or increased frequency ??? depression occurs in a large percentage of women. It often occurs after two weeks and can last weeks or months. This is different than ??? blues?? which can occur during thefirst few days after you deliver. https://www.acog.org/Patients/FAQs/-Depression We encourage you to contact your provider or a member of the nursing staff if you are feeling so overwhelmed that you are unable to care for yourself or your baby. Keep your follow up appointment. You may call the Birthing [facility] at any time for guidance or for answers to questions that come up prior to you follow up appointment. Your [facility] Provider can be reached during office hours at ??? Midwives ??? Obstetricians ??? Services AFTER OFFICE HOURS for the blade aligner or boat hand plant operations coordinator Provider electronic signature confirms that discharge instructions were reviewed with the patient. A copy was printed and given to the patient. Future Appointments and Orders Future Appointments and Orders Future Appointments Provider Department Dept Phone 07/31/2022 9:00 AM NURSE, [facility] Obstetrics and Gynecology at [facility] Arrive at: Proration Clerk Area [phone] Future Orders Complete By Expires Amb Referral to [facility] Maternal Child Health [HHA322 CPT(R)] As directed Process Instructions: If no progress note charted, please enter Clinical details in comments. Scheduling Instructions: Comments: DOCUMENTATION FOR VNA SERVICES (INCLUDING THOSE PATIENTS WITH MEDICARE COVERAGE REQUIRING HOME VNA SERVICES AND/OR HOSPICE SERVICES) PATIENT'S LOCATION: Jose Juan Lundy [address] [facility] [address] (home) Cell: Telephone Information: Bush Hog Operator's Name: Agatha Kwan In discussion with the attending physician, it is certified that this patient is under their care and that they, or a Nurse Practitioner,Clinical Nurse specialist or Physician Behavioral Science Chair who is working directly with them, had a face to face encounter that meets the physician face to face encounter requirements with this patient on Kaila Hameed ( please enter DC date here) The encounter with the patient was in whole, or in part, for the following medical condition, whichis the primary reason for home health care services: period In discussion with the provider, it is certified that, based on their findings, the following services are medically necessary for home health services. To provide the following care/treatments with the clinical findings supporting the need for services as follows: HOME CARE ORDERS: RN ORDERS: Please provide maternal/child health follow up and care. SW: Please assess mother and child need/connection to community resources. HOME HEALTH CARE AGENCY: [facility] Child [address] [address] PHONE: [phone] FAX: [phone] Start of care: 24 - 48 hours post discharge Pt to DC 07/28/22 Please note that any additional orders needs or changes will need to be obtained from this patient's PCP: None None None All VNA agencies which cover the area of patient's residence have been reviewed, either verbally erickson writing, and patient/family have chosen the home health care agency noted Questions: Which program would you like to refer to: Maternal Child Health Services requested for Maternal Child Health: Social Work Group Home Follow-up [LFK168 Custom] As directed Process Instructions: Scheduling Instructions: Comments: - Blood pressure check sometime day 5-7 - 2 week mood check - 6 week routine visit - Cardiology follow up - cardiology to schedule Questions: Discharge References/Attachments None Willow Clifton MD HIV PREVENTION SPECIALIST, PGY-1 07/29/2022 documented in this encounter Discharge Instructions * Discharge Instructions* Karen Khan RN - 07/29/2022 10:22 AM EDT Images from the original note were not included. Nurse Inpatient Note - Vaginal Delivery Follow-ups: ? 2 week and 6 week visit will be scheduled with your primary OB provider Maternal Discharge Instructions Rest: Although it may seem impossible to get enough rest, simple planning will help. Plan to rest, and/or sleep when your baby does. Limiting visitors also helps. Other family members can help by doing housework, caring for other children and/or helping limit visitors. Activity: Exercise can be gradually increased following your delivery, depending on the doctor's recommendation. It is recommended that you do not swim until the vaginal bleeding stops or perform anyheavy lifting for six weeks. ???Aim to stay active for 20-30 minutes a day. When you first start exercising after childbirth, try simple exercises that help strengthen major muscle groups, including abdominal and backmuscles. Gradually add moderate- intensity exercise. Remember, even 10 minutes of exercise benefits your body. If you exercised vigorously before or you are a manager of development, you can work up to vigorous-intensity activity. Stop exercising if you feel pain.?? https://www.acog.org/Patients/FAQs/Mzyiavyr-Rfsgs-Rjutxpkix?IsMobileSet=false#ho w Nutrition: Your diet following the of your baby is as important as it was before the baby wasborn. Drinking a minimum of 6-8 glasses of water a day will help keep you hydrated. Continue takingyour vitamins until you are no longer . Do not attempt to lose weight during the first six weeks. Sweating. Hormonal changes following delivery frequently cause night sweats which are normal over the next 6 weeks. Sleeping on towels and using a fan may make you more comfortable. Lochia: (Flow) Your flow should be no heavier than a normal period. It will be bright red and then transition to pink, brown, yellow, and finally colorless. This may last a few weeks. If your vaginalbleeding becomes bright red again, decrease your activity. We recommend pelvic rest until your bleeding and spotting stops and your episiotomy or vaginal tearhas healed. This may take up to six weeks. Pelvic rest includes activities such as douching, use oftampons/menstrual cups or sexual intercourse. Bladder: For the next 2 weeks, empty your bladder every 2 hours while awake and at least every 4 hours at night. Perineum: For about a week continue to rinse yourself with warm water when you use the toilet. A sitz bath with Epsom salt taken 2 times a day and use of witch sergei may help relieve soreness. Kegel exercise, done regularly throughout the day, will help tighten the perineal muscles and speed recovery. If you received any stitches, these will dissolve on their own and do not need to be removed. If you had a 3rd degree or 4th degree vaginal laceration continue taking stool softeners as recommended by the doctor. Breast Care for Formula feeding mothers: Wear a well-fitting bra to support your breasts. Ice packsto your breasts (10 minutes at a time) as well as alternating Tylenol and Ibuprofen may be used to relieve discomfort from engorgement. Avoid stimulating your breasts: Do not let warm water from the shower fall directly on your breast;do not express any colostrum; avoid holding your baby near your breasts until your milk begins to decrease and engorgement is relieved. Breast Care for mothers: Practice careful positioning and frequent feeding as demonstrated in the hospital. The printed information in your packet covers this in detail. For More Information: https://www.acog.org/Patients or refer to [employer]'s Your and Childbirth: Month to Month book which you may have received from the OB Clinic. Vaccination: If you received the Measles, Mumps, and Rubella (MMR) vaccine, varicella vaccine, or Hepatitis A vaccine during your hospitalization make sure to discuss this with your OB provider or your PCP at your next visit. You may need a second dose of the vaccine to receive effective vaccine protection. Medications: Please take your medication exactly as prescribed. Read all instructions that come with your medication. Using narcotic pain medication (such as oxycodone, hydromorphone (Dilaudid), morphine, fentanyl, ortramadol) may cause addiction. While addiction is more common in people with a personal or family history of addiction, it can occur in anyone. Taking more than the prescribed amount of medication or using with alcohol or other drugs can causeyou to stop breathing resulting in coma, brain damage, or . Opioids (oxycodone, hydromorphone/Dilaudid, morphine, fentanyl, tramadol) can slow reaction time, cause drowsiness, or cloud judgement. It is unsafe for you to drive or operate heavy machinery while taking this medication. Opioids (oxycodone, hydromorphone/Dilaudid, morphine, fentanyl, tramadol) are at risk of being diverted by anyone with access to your home. Opioids should be stored in a safe and secure place, such as a locked cabinet or safe. Unused opioids (oxycodone, hydromorphone/Dilaudid, morphine, fentanyl, tramadol) should be disposedof according to the label or patient information. If there are no specific instructions, medications may be returned to a take-back location or mixed with a small amount of water and an undesirable waste substance such as coffee grounds or cat litter. If you were taking opioids like heroin, methadone, Percocet and buprenorphine during and you stopped for any period of time, you are now more sensitive to this drug. That means that your old dose will be too strong, and you will be at risk for overdose if you take it. As we all are aware, opioid use is a concern in [place] and [place]. We recommend that families with any member at risk for overdose have a prescription for naloxone to reverse an overdose. Your providers would be happy to give you one. Call your doctor or boat hand for: Seizure (call 911) Headache which isn't relieved with Tylenol Headache with visual changes Pain in your chest Shortness of breath Pain in upper right abdomen Fever more than 100.4 F Breast with hot, hard, tender areas plus flu-like symptoms including muscle aches and feeling unwell all over Increased abdominal pain, nausea, shaking chills Increased pain in the area of stitches outside your vagina Heavy bleeding that saturates a pad an hour Clots larger than an egg Red or swollen leg which is painful or warm to the touch Feeling of bladder fullness or pain Unable to urinate when feeling the urge Pain or bleeding with urination Urinary leakage without coughing or sneezing Urinary urgency or increased frequency depression occurs in a large percentage of women. It often occurs after two weeks and can last weeks or months. This is different than ??? blues?? which can occur during the first few days after you deliver. https://www.acog.org/Patients/FAQs/-Depression We encourage you to contact your provider or a member of the nursing staff if you are feeling so overwhelmed that you are unable to care for yourself or your baby. Keep your follow up appointment. You may call the [facility] at any time for guidance or for answers to questions that come up prior to you follow up appointment. Your [facility] Provider can be reached during office hours at [facility] AFTER OFFICE HOURS for the blade aligner or boat hand plant operations coordinator Provider electronic signature confirms that discharge instructions were reviewed with the patient. A copy was printed and given to the patient. documented in this encounter Medications at Time of Discharge Medication Sig Dispensed Refills Start Date End Date acetaminophen (Tylenol) 325 mg Tablet Take 3 tablets by mouth every 6 hours as needed for Pain. 30 tablet 1 07/29/2022 polyethylene glycoL (Miralax) 17 gram Powder in Packet Take 17 g by mouth daily. 14 each 07/29/2022 fluticasone propionate (Flonase) 50 mcg/actuation [place], SuspensionIndications :allergic rhinitis 1 spray by Each [...] as directed for 3 days. 06/04/2022 03/02/2024 docusate sodium (Colace) 100 mg Capsule Take 1 capsule by mouth 2 times daily for 10 days. 20 capsule 07/29/2022 08/08/2022 famotidine (Pepcid) 40 mg Tablet Take 1 tablet by mouth 2 times daily. 60 tablet 5 07/29/2022 10/31/2022 ibuprofen (Advil) 600 mg Tablet Take 1 tablet by mouth every 6 hours. 30 tablet 12 07/29/2022 03/09/2024 nicotine (Nicoderm CQ) 14 mg/24 hr Patch 24 hr Change 1 patch on the skin daily. 28 patch 07/29/2022 03/13/2023 norethindrone (MICRONOR) 0.35 mg Tablet Take 1 tablet by mouth daily. Must take at EXACTLY the same time every day 84 tablet 3 07/29/2022 10/05/2022 nitroGLYcerin (Nitrostat) 0.4 mg Tablet, Sublingual Place [...] as of this encounter Progress Notes * Willow Clifton MD - 07/29/2022 9:08 AM EDT Progress Note: Patient ID: Ms. Jose Juan Lundy is a 37 y.o. PPD #3 after uncomplicated at 37w1d gestation. History of cardiac arrest with ICD in place, cHTN, anxiety. S: Jose Juan is overall doing well this morning. Excited to go home. Continues to tolerate a diet, ambulate, void, and stool without significant issue. Her lochia is moderate and appropriate for PPD3. She notes she continues to have some abdominal cramping in her pelvis and now has some breast tenderness. Has been using a breast binder. Does not plan to breastfeed. Of note, cardiology increased Jose Juan's amlodipine dose from 2.5 mg in the evening to 5 mg in the evening. She remains at 2.5 mg in the morning. O: Last value Range last 24 hrs Temperature Temp: 36.5 ??C (97.7 ??F) Temp: [36.5 ??C (97.7 ??F)-36.7 ??C (98.1 ??F)] Heart Rate Heart Rate: 76 Heart Rate: [52-76] Blood Pressure BP: 131/74 BP: (129-150)/(70-87) Respiratory Rate Resp: 18 Resp: [18-20] SpO2 SpO2: 99 % SpO2: [97 %-100 %] Intake/Output Summary (Last 24 hours) at 07/29/2022 0946 Last data filed at 07/29/2022 0002 Gross per 24 hour Intake 500 ml Output 600 ml Net -100 ml Exam: Gen: NAD Abdomen: +BS, soft, NT/ND, no rebound or guarding, fundus firm 3 cm below umbilicus with mild tenderness to palpation Extremities: nontender, no edema. Labs: Recent Labs 07/25/22 1237 07/23/22 0145 WBC 13.6* 14.5* HGB 11.1* 11.5* HCT 32.5* 35.2* PLATELET 296 308 Recent Labs 07/25/22 1445 07/23/22 0145 NA -- 136 K -- 3.7 CL -- 102 CO2 -- 23 BUN -- 6* CREATININE 0.72 0.84 Assessment: Ms. Jose Juan Lundy is a 37 y.o. PPD #3 after uncomplicated at 37w1d gestation. She is overall doing well today and stable for discharge. # Care ?? Pt meeting appropriate milestones. Continue routine care. ?? Pt asymptomatic for anemia. Continue to monitor for signs or symptoms of worsening anemia. ?? Discussed avoiding further narcotics for pain control. Continue alternating scheduled ibuprofen and Tylenol. Encouraged heat packs. Maintain on bowel regimen. ?? Bottlefeeding ?? Contraception: POP, sent to pharmacy; will follow up possible 6 week tubal ligation as an outpatient ?? Encouraged wayne wrap, Motrin, Tylenol for breast engorgement ?? Anticipate discharge today # cHTN # History of cardiac arrest ?? Continue amlodipine 2.5mg in the morning, 5 mg in the evening ?? Cardiology to schedule follow up for patient ?? ICD in place and functioning, able to monitor settings remotely ?? For BP check on PPD5-7 # Anxiety ?? Klonopin available PRN (home med) ?? 2 week mood check, RN team aware #Smoking History ?? Nicotine patches available, encouraged use This patient was seen and discussed on rounds. Willow Clifton MD PGY-1 07/29/22 * Jerilyn Del Valle RN - 07/29/2022 5:57 AM EDT Pt stable overnight. Sustained hypertension, nothing severe. Appropriate urine output. Pain controlled with tylenol and ibuprofen. Breasts sore and tender from engorgement, pt encouraged to use compression and ice, as well as a small amount of hand expression for relief. Small red nodule on left axillary part of left breast. MDs aware, pt afebrile. Pt rested throughout night, partner remained supportive at bedside caring for pt and who was boarding. Call flaherty within reach, reviewed reasons to call out. Pt verbalized understanding. * Liseth Flores MD - 07/28/2022 12:37 PM EDT CARDIOVASCULAR AND REPRODUCTIVE MEDICINE PROGRESS NOTE Primary Care Provider: None Referring: Kaila Hameed MD ID: Jose Juan Lundy is a 37 y.o. female 37 y.o. PPD #1 after uncomplicated at 37w1d gestation. History of cardiac arrest with ICD in place, cHTN, anxiety. Interval Events: No chest pain, SOB, dizziness Reports lower abdomina discomfort, but controlled after delivery Slightly anxious Was bradycardic to 47 overnight without symptoms Blood pressures SBP 150-160 yest AM MEDICATIONS: Scheduled Meds: ??? lidocaine 1 patch Transdermal Q24H And ??? lidocaine 1 patch Transdermal Q24H ??? senna-docusate 2 tablet Oral BID ??? polyethylene glycoL (MIRALAX) oral powder 17 g Oral Daily ??? ibuprofen 600 mg Oral Q6H ??? nicotine 1 patch Transdermal Daily And ??? Patch Verification 1 patch Transdermal BID ??? famotidine 40 mg Oral BID ??? amLODIPine 2.5 mg Oral BID ??? eqvaaqsuz-fmzsknymy-zi-mag-sim 5 mL Oral BID ??? Neuraxial/Epidural shift total and Settings verification Epidural 2 Times Daily- Neuraxial Shift Total Continuous Infusions: ??? fentaNYL 2 mcg/mL with BUpivacaine 0.125% (1.25 mg/mL) (1/8%) in NS(PF) 10 mL/hr (07/25/22 7703) PRN Meds:.acetaminophen, ondansetron, clonazePAM EXAMINATION: Last value Range last 24 hrs Temperature Temp: 37.1 ??C (98.8 ??F) Temp: [36.5 ??C (97.7 ??F)-37.1 ??C (98.8 ??F)] Heart Rate Heart Rate: 58 Heart Rate: [43-66] Blood Pressure BP: 132/76 BP: (122-156)/(55-93) Respiratory Rate Resp: 18 Resp: [18] SpO2 SpO2: 98 % SpO2: [98 %-99 %] Well appearing, in no distress Skin: warm and dry. HEENT: benign Neck: Carotid upstrokes and amplitudes normal. No bruits. Chest: Clear to auscultation Cor: Normal S1 and S2. No murmurs, gallops, rubs, thrills, lifts, heaves. Abdomen: benign. Normal bowel sounds. Extremities: No edema. Pulses normal. Neuro: grossly nonfocal. LABS: Lab Results Component Value Date WBC 13.6 (H) 07/25/2022 HGB 11.1 (L) 07/25/2022 HCT 32.5 (L) 07/25/2022 PLATELET 296 07/25/2022 TRIG 130 11/04/2021 ALT 12 07/23/2022 AST 8 07/25/2022 NA 136 07/23/2022 K 3.7 07/23/2022 CL 102 07/23/2022 CREATININE 0.72 07/25/2022 BUN 6 (L) 07/23/2022 CO2 23 07/23/2022 TSH 2.96 11/16/2021 INR 1.1 11/06/2021 IMPRESSION: Jose Juan Lundy is a 37 y.o. female 37 y.o. PPD #1 after uncomplicated at 37w1d gestation. History of cardiac arrest with ICD in place, cHTN, anxiety. 07/28: Stable, with hypertension. She is not breasfeeding post-. Ok with continuing to take amlodipine PLAN: HTN - Amlodipine 2.5 mg AM / 5.0 mg PM (home dosing). Can consider adding on lisinopril as outpatient if still uncontrolled Other - Strongly recommend smoking cessation. Will arrange follow up on a routine basis with cardiology. Discussed with Dr. Zurita. Liseth Flores MD [facility] Metal Trades Instructor, PGY-5 Pager #[phone] Can Epic message me 7AM-4PM on weekdays for non-urgent matters . * Yudi Barone MD - 07/28/2022 7:59 AM EDT The patient is day 2 s/p . remarkable for recent CT prior to conception. I personally saw and evaluated the patient during morning report and rounds with the resident physicians and nursing staff. The patient is making good progress. I agree with Dr. Clifton's assessment and plan as documented. We anticipate discharge on day #3. Check in with cardiology prior to discharge to review current antihypertensive regimen. Yudi BARONE MD * Willow Clifton MD - 07/28/2022 7:59 AM EDT Progress Note: Patient ID: Ms. Jose Juan Lundy is a 37 y.o. PPD #2 after uncomplicated at 37w1d gestation. History of cardiac arrest with ICD in place, cHTN, anxiety. S: Jose Juan is feeling slightly better today. Notes that her abdominal cramping has somewhat improved, particularly when re-examined at the end of the day. Initially tearful on morning exam at the thought of having to stay an extra day for blood pressure monitoring, though on re-evaluation towards the end of the day, patient more amenable to plan. Denied suicidal ideation, thoughts of self- harm orharm to baby. Ambulating, tolerating a diet, lochia appropriate for PPD2. On re-evaluation at the end of the day, notes that she would like an Wayne wrap for her breasts as she has now become engorged. Of note, Cardiology was re-engaged today for assistance with management of Jose Juan's blood pressures. Please see their note for further details. O: Last value Range last 24 hrs Temperature Temp: 37.1 ??C (98.8 ??F) Temp: [36.5 ??C (97.7 ??F)-37.1 ??C (98.8 ??F)] Heart Rate Heart Rate: 61 Heart Rate: [43-66] Blood Pressure BP: 129/79 BP: (122-156)/(55-93) Respiratory Rate Resp: 18 Resp: [18] SpO2 SpO2: 98 % SpO2: [98 %-99 %] No intake or output data in the 24 hours ending 07/28/22 1758 Exam: Gen: NAD Cardiac: RRR, S1, S2, no rub/gallop/murmur. Pulmonary: CTAB, nl respiratory effort Abdomen: +BS, soft, NT/ND, no rebound or guarding, fundus firm 3 cm below umbilicus. Extremities: nontender, no edema. Labs: Recent Labs 07/25/22 1237 07/23/22 0145 WBC 13.6* 14.5* HGB 11.1* 11.5* HCT 32.5* 35.2* PLATELET 296 308 Recent Labs 07/25/22 1445 07/23/22 0145 NA -- 136 K -- 3.7 CL -- 102 CO2 -- 23 BUN -- 6* CREATININE 0.72 0.84 Assessment: Ms. Jose Juan Lundy is a 37 y.o. PPD #2 after uncomplicated at 37w1d gestation. She remains in the hospital for continued closed management of her blood pressure in the period as well as continued support of her mood and pain control. # Care ?? Pt meeting appropriate milestones. Continue routine care. ?? Pt asymptomatic for anemia. Continue to monitor for signs or symptoms of worsening anemia. ?? Discussed avoiding further narcotics for pain control. Continue alternating scheduled ibuprofen and Tylenol. Encouraged heat packs. Maintain on bowel regimen. ?? Bottlefeeding ?? Contraception: POP, will send tomorrow ?? Anticipate discharge on PPD#2-3 # cHTN # History of cardiac arrest ?? Continue amlodipine 2.5mg in the morning; per cardiology recommendations, will increase PM dose to 5 mg ?? Cardiology to schedule follow up for patient ?? ICD in place and functioning # Anxiety ?? Klonopin available PRN (home med) #Smoking History ?? Nicotine patches available, encouraged use This patient was seen and discussed on rounds. Willow Clifton MD PGY-1 07/28/22 * Johan Rangel MD - 07/27/2022 11:38 AM EDT Progress Note: Patient ID: Ms. Jose Juan Lundy is a 37 y.o. PPD #1 after uncomplicated at 37w1d gestation. History of cardiac arrest with ICD in place, cHTN, anxiety. S: Pt examined at bedside this morning, resting comfortably. She did endorse significant cramping last night for which she received 15mg IV Toradol and oxycodone. She does not think the Toradol helped, but the oxy did. She is using a heat pack and has lidocaine patches in place. She is bottle feeding her infant, has not had breast engorgement at all. Vaginal bledeing light. Her partner wants her to stay another night and she is willing. No chest pain, shortness of breath, nausea, vomiting. ROS otherwise negative. O: Last value Range last 24 hrs Temperature Temp: 36.7 ??C (98.1 ??F) Temp: [36.4 ??C (97.5 ??F)-36.7 ??C (98.1 ??F)] Heart Rate Heart Rate: 58 Heart Rate: [52-65] Blood Pressure BP: 142/85 BP: (115-154)/(59-88) Respiratory Rate Resp: 17 Resp: [16-17] SpO2 SpO2: 100 % SpO2: [98 %-100 %] Intake/Output Summary (Last 24 hours) at 07/27/2022 1141 Last data filed at 07/27/2022 0536 Gross per 24 hour Intake 770 ml Output 2725 ml Net -1955 ml Exam: Gen: NAD Cardiac: RRR, S1, S2, no rub/gallop/murmur. Pulmonary: CTAB, nl respiratory effort Abdomen: +BS, soft, NT/ND, no rebound or guarding, fundus firm 2cm below umbilicus. Extremities: nontender, no edema. Labs: Recent Labs 07/25/22 1237 07/23/22 0145 WBC 13.6* 14.5* HGB 11.1* 11.5* HCT 32.5* 35.2* PLATELET 296 308 Recent Labs 07/25/22 1445 07/23/22 0145 NA -- 136 K -- 3.7 CL -- 102 CO2 -- 23 BUN -- 6* CREATININE 0.72 0.84 Assessment: Ms. Jose Juan Lundy is a 37 y.o. PPD #1 after uncomplicated at 37w1d gestation. # Care ?? Pt meeting appropriate milestones. Continue routine care. ?? Pt asymptomatic for anemia. Continue to monitor for signs or symptoms of worsening anemia. ?? Discussed avoiding further narcotics for pain control. Will schedule ibuprofen and Tylenol ? Contraception: considering Depo or IUD ?? Anticipate discharge on PPD#2-3 # cHTN # History of cardiac arrest ?? Continue amlodipine 2.5mg daily ?? Will discuss with cardiology regarding timing of follow-up visit ?? ICD in place and functioning # Anxiety ?? Klonopin available PRN (home med) This patient was seen and discussed on rounds. Johan Rangel MD PGY-3 07/27/22 * Kaylen Clement RN - 07/27/2022 10:34 AM EDT The patient Jose Juan Lundy has asked for a Maternal Child Health Visiting Nurse agency. [facility] confirmed that they have Maternal Child Health support in her region, [place], [place]. Patient requests referral to : [facility] [place] [address] Expected date of discharge: 07/28/22. Referral routed to the Administrative Office Clerk for matching with agency/vendor and to provide any required information. * Nevaeh Almazan RN - 07/26/2022 7:[address] Clifton notified of patient's persistent pain despite ATC OTC, requested to bedside to discuss pain management with patient. * Tess Roche APRN - 07/26/2022 6:34 PM EDT Cardiac Electrophysiology Device Interrogation: Data Generator: Vaprema Emblem MRI A219 [id number]) - Left side implant 11/12/2021 Lead: Vaprema [id number] ([id number]) (11/12/2021) S-ECG: sinus rhythm ~ 70 bpm Settings AF monitor: ON Conditional shock zone: 200bpm Shock zone: 240bpm Sensing configuration: secondary Battery and Leads Battery status: 14% to JOSE Electrode impedance: 60 ohms Since last follow up: 0 days AF 0 untreated episodes 0 treated episodes 0 shocks delivered Tess Roche APRN 07/26/22 * Ej Zurita MD - 07/26/2022 5:52 PM EDT CARDIOVASCULAR AND REPRODUCTIVE MEDICINE PROGRESS NOTE Primary Care Provider: None Referring: No referring provider defined for this encounter. Jose Juan Lundy is a 37 y.o. female who is here for IOL . Over the past day, she has had no anginal chest pain, dyspnea, orthopnea, or PND. There have been no significant new findings on telemetry. We agreed to stop telemetry monitoring this am. Device interrogation NSR 70s. No [place] events. MEDICATIONS: Scheduled Meds: ??? lidocaine 1 patch Transdermal Q24H And ??? lidocaine 1 patch Transdermal Q24H ??? senna-docusate 2 tablet Oral BID ??? polyethylene glycoL (MIRALAX) oral powder 17 g Oral Daily ??? ibuprofen 600 mg Oral Q6H ??? nicotine 1 patch Transdermal Daily And ??? Patch Verification 1 patch Transdermal BID ??? famotidine 40 mg Oral BID ??? amLODIPine 2.5 mg Oral BID ??? teuyycrnv-detybnuuc-at-mag-sim 5 mL Oral BID ??? Neuraxial/Epidural shift total and Settings verification Epidural 2 Times Daily- Neuraxial Shift Total Continuous Infusions: ??? fentaNYL 2 mcg/mL with BUpivacaine 0.125% (1.25 mg/mL) (1/8%) in NS(PF) 10 mL/hr (07/25/22 2245) PRN Meds:.acetaminophen, oxyCODONE, ondansetron, clonazePAM EXAMINATION: Last value Range last 24 hrs Temperature Temp: 36.7 ??C (98.1 ??F) Temp: [36.4 ??C (97.5 ??F)-36.7 ??C (98.1 ??F)] Heart Rate Heart Rate: 58 Heart Rate: [52-65] Blood Pressure BP: 142/85 BP: (115-154)/(57-88) Respiratory Rate Resp: 17 Resp: [16-20] SpO2 SpO2: 100 % SpO2: [98 %-100 %] Well appearing, in no distress Skin: warm and dry. HEENT: benign Neck: Carotid upstrokes and amplitudes normal. No bruits. Chest: Clear to auscultation Cor: Normal S1 and S2. No murmurs, gallops, rubs, thrills, lifts, heaves. Abdomen: benign. Normal bowel sounds. Extremities: No edema. Pulses normal. Neuro: grossly nonfocal. LABS: Lab Results Component Value Date WBC 13.6 (H) 07/25/2022 HGB 11.1 (L) 07/25/2022 HCT 32.5 (L) 07/25/2022 PLATELET 296 07/25/2022 TRIG 130 11/04/2021 ALT 12 07/23/2022 AST 8 07/25/2022 NA 136 07/23/2022 K 3.7 07/23/2022 CL 102 07/23/2022 CREATININE 0.72 07/25/2022 BUN 6 (L) 07/23/2022 CO2 23 07/23/2022 TSH 2.96 11/16/2021 INR 1.1 11/06/2021 IMPRESSION: 1. Stable coronary status PLAN: 2. No change to pre-admission cardiac medications. Strongly recommend smoking cessation. No cardiaccontraindication to anesthesia for tubal ligation if this is the desired mode of contraception. Will arrange follow up on a routine basis with cardiology. TIME STATEMENT Total visit: 25 min Time devoted to discussion, counseling, planning, review: 20 min Issues discussed: Contraception, cardiac status, plans for follow up . * Tiffany Ratliff MSW - 07/26/2022 11:16 AM EDT [facility] Social Work Note Patient: JOSE JUAN LUNDY This SW requested gas cards from [facility] via email, provided baby's MRN. This SW also inquired about any formula [facility] may have to send this family home with in case there is a gap of coverage for formula from [facility]. HAROON Weaver Integrated Marketing Specialist [facility] Pager: [phone] * Janeth Gonzalez DO - 07/25/2022 11:27 PM EDT Intrapartum Progress Note Patient ID: Jose Juan Lundy is a 37 y.o. at 37w0d gestation being admitted for induction of labor in the setting of chronic hypertension and history of cardiac arrest in 09/2021. S: Appears uncomfortable with epidural. She is requesting a check due to increased vaginal pressureand gas. She is worried that she won't know when it's time to push and she will have a . O: Last value Range last 8 hrs Temperature Temp: 36.5 ??C (97.7 ??F) Temp: [36.5 ??C (97.7 ??F)-36.7 ??C (98.1 ??F)] Heart Rate Heart Rate: 66 Heart Rate: [61-102] Blood Pressure BP: 118/73 BP: (114-150)/(66-94) Respiratory Rate Resp: 16 Resp: [16-18] SpO2 SpO2: 96 % SpO2: [96 %-99 %] Cervical Exam: Dilation: 6 (07/25/22 230) Effacement: 90 Station: -2 Cervical Position: Posterior Consistency: Soft Coleman Score: 3 OB Examiner: Janeth Price FHR Baseline 120 /Moderate variability/ + accels/no decels [place]: Ctx q3 mins Pitocin: NA MVUs: n/a New Labs Lab Results Component Value Date WBC 13.6 (H) 07/25/2022 HGB 11.1 (L) 07/25/2022 HCT 32.5 (L) 07/25/2022 MCV 89.0 07/25/2022 PLATELET 296 07/25/2022 Lab Results Component Value Date CREATININE 0.72 07/25/2022 Lab Results Component Value Date AST 8 07/25/2022 A/P: Jose Juan Lundy is a 37 y.o. at 37w0d gestation being admitted for induction of laborin the setting of chronic hypertension and history of cardiac arrest in 09/2021.Patient is IOL D#1 and progressing appropriately. Labor course and assessment: ?? Labor management: S/p AROM @16:27. Epidural in place. /2 @23:09. In active labor and progressing with expectant management. ??? wellbeing: Cat I ??? GBS status: Unkown. PCN not indicated d/t term. Collected on admission. ??? Analgesia: Plan had been for early epidural, however due to patient preference and floor status, epidural was delayed until very painful contractions. Epidural in place. Patient reports pain. Patient was coached to press the epidural bolus button when the green light is blinking and she is experiencing undesired pain. Counseled that it is appropriate to minimize pain in the setting of her cardiac history. ??? PPH risk: low Other ?? Anxiety: Reassurance was given to the patient. We explained that we anticipate a vaginal delivery today, we are actively monitoring her and the baby from afar, and we will place all of the supplies in the room in anticipation of her delivery. We encouraged the patient that she has insight into her body and it is always appropriate to call out if she thinks something has changed or she needs help. She has a strong support team in the room including sister Glenys and partner Dk. ?? Hydroxyzine given ?? PRN clonazepam available ?? History of cardiac arrest: ? Currently hemodynamically stable ? Cardiology following ? ICD OFF ? On continuous telemetry during labor ? If chest pain/SOB- obtain 12pt EKG, troponins, vitals. Can administer sublingual nitroglycerin for pain, but consult cardiology if doing so ? Urgent/emergent Cardiology evaluation for chest/upper??back discomfort, unexplained hypotension, hypoxemia, unusual tachycardia or symptomatic/sustained arrhythmias. ? Please page the cloud subject matter expert plant operations coordinator for questions or concerns? cHTN ?? Continue home amlodipine 2.5mg daily during admission ?? Baseline PIH labs on admission wnl ?? History of asthma ? Consider albuterol nebulizer with symptom exacerbation ?? GERD ? Home famotidine continued ? Added BMX per patient request Janeth Gonzalez, PGY-1 07/25/22 Associated attestation - Lorelei Desai MD - 07/26/2022 3:20 AM EDT In to see patient with resident. Patient notes increased pressure. She appears anxious but comfortable. Exam indicates patient is entering more active labor. Agree with plan for observation for further labor progress. Reassure patient. LORELEI DESAI MD * Romana King, MAIK - 07/25/2022 7:43 PM EDT In to see patients while physician team in the OR. Pt is having difficulty coping with labor. C/o significant pain with each contraction, resolves in between. Also having significant pain in R hip & right side of abdomen. Continues to leak clear fluid. Requesting an epidural. Anesthesia team morelia vailable in the OR & are paging a second team to assist as soon as possible. Offered IV pain medication. Pt concerned about SE but after discussion accepts. Fentanyl OK per Physician team & confirmed safe by pharmacy given morphine allergy. Jose Juan was also feeling significant pressure with each UC. SVE done with patient consent. 2.5/60/-3 Carreno balloon not palpable, head palpable at inner os Carreno deflated & removed Fentanyl 50mcg given Anesthesia to room as soon as available for epidural Romana King CNM * Timbo Mistry PA - 07/25/2022 1:53 PM EDT Cardiac Electrophysiology Post-Implant Device Interrogation Jose Juan Lundy [id number] 07/25/2022 History: Jose Juan Lundy is a 37 y.o. female with a history of VF arrest in October 2021 that was felt to be in the setting of coronary vasospasm, s/p subcutaneous ICD placement, presents for induction of labor. We were asked to manage the ICD programming during labor/delivery. Physical Exam: Vitals: 07/25/22205407/25/22209907/25/22210407/25/222109 BP: 149/83 141/80 132/73 132/68 BP Location (NBP): Patient Position: Pulse: 66 74 64 (!) 101 Resp: 18 16 16 Temp: 36.5 ??C (97.7 ??F) TempSrc: Oral SpO2: 97% 97% 97% Weight: Height: General- No acute distress, laying comfortably in bed. Skin- Left side incision is CDI, edges are approximated without drainage. Sternal incisions are CDIwithout drainage, edges are approximated. Cardiovascular- S1/S2 regular rate and rhythm. No murmur. Lungs- Clear to auscultation bilaterally Neuro- A&Ox3 Device Interrogation: Data Generator: Vaprema EmblePeekYou MRI A219 - Left side implant Lead: Vaprema [id number] Settings AF monitor: ON Conditional shock zone: 200 bpm Shock zone: 240 bpm Sensing configuration: Secondary Battery and Leads Battery status: OK Electrode impedance: OK Impression: 37 y.o. female who has hx subcutaneous ICD implant for secondary prevention of sudden cardiac deathin setting of VF arrest in October 2021 that was felt to be in the setting of coronary vasospasm, who presented this admission for induction of labor. We recommended shyanne-labor magnet applicator overICD to prevent noise that could be cause oversensing and inappropriate shock. - Appropriate device function - Magnet must remain over ICD during induction, labor, and delivery to deactivate ICD therapies andprevent inappropriate shock from externalized radiofrequency - No programming changes made Plan: 1. Securely fasten magnet over device during induction, labor and delivery portion. Remove magnet after labor. Call pager #[phone] after labor and delivery to have device checked after magnet removed 2. 12/05 cardiac telemetry during magnet use 3. Follow-up in device clinic as routinely arranged and continue to be monitored via remote downloads. EDEN Mckinney 07/25/2022 Pager: [phone] documented in this encounter H&P Notes * Johan Rangel MD - 07/25/2022 4:49 PM EDT Obstetrical Term Admission Note Jose Juan Lundy is a 37 y.o. at 37w0d gestation being admitted for induction of labor in the setting of chronic hypertension and history of cardiac arrest in 09/2021. HPI: Jose Juan reports that she is ready for this to be over. She endorses feeling contractions. She is also endorsing upper abdominal pain. Denies vaginal bleeding or LOF. No headache or vision changes. No chest pain or shortness of breath at present. She is overall very anxious about this process. She does endorse and headache that has been ongoing for a few days for which Tylenol is helping. Her has been complicated by: -- History of cardiac arrest- secondary to severe coronary vasospasm during COVID infection in September 2021. Now with ICD in place and follows with cardiology. LVEF 68% on last echo. -- Pneumonia in this : -- cHTN: managed on amlodipine 2.5mg -- Tobacco use disorder -- GERD: on famotidine and viscous lidocaine daily -- Anxiety -- Asthma: using albuterol and nebulizer as needed Review of Systems- Negative to complete review except as noted in the HPI. Obstetric Review of Systems Total Weight Gain this 4.99 kg (11 lb) Movement: normal Contractions: cramping Leaking: None Bleeding; none now Preeclampsia signs and symptoms: headache and epigastric pain Active Hospital Problems Diagnosis ??? Encounter for induction of labor Resolved Hospital Problems No resolved problems to display. Active Non-Hospital Problems Diagnosis ??? Subcutaneous defibrillator implanted 11/12/2021 ??? Cigarette smoker ??? Coronary artery vasospasm ??? *History of COVID-19 ??? Cardiac arrest ??? Gastroesophageal reflux disease ??? Borderline personality disorder ??? Post-traumatic stress disorder, chronic ??? Anxiety disorder, unspecified ??? Chest pain ??? Skin disease ??? Depression ??? Asthma ??? Hypertension ??? Tachycardia ??? Recurrent major depressive episodes, moderate Past Medical History: Diagnosis Date ??? *History [...] ENDOSCOPY performed by Dudley Alva MD at [facility] OB History 5 Para 3 Term 3 AB 1 Living 3 SAB 1 IAB Ectopic Multiple Live Births 3 # Outc Date GA Lbr Eric/2nd Wgt Sex Del Anes PTL Lv 1 SAB 2001 16w0d 2 Term 05/2003 40w4d 3.289 kg (7 lb 4 oz) M Vag-Spont Living 3 Term 04/2009 39w0d 2.977 kg (6 lb 9 oz) Vag-Spont Living 4 Term 2013 Vag-Spont 5 Current Medications Prior to Admission Medication Sig Dispense Refill Last Dose ??? nitroGLYcerin (Nitrostat) 0.4 mg Tablet, Sublingual Place 1 tablet under the tongue every 5 minutes as needed for Chest pain. 30 tablet 1 Past Week at Unknown time ??? Norvasc 2.5 mg Tablet Take 1 tablet by mouth 2 times daily. Take 1 tablet in the morning and 2 tablets at night. 180 tablet 1 07/25/2022 at Unknown time ??? famotidine (Pepcid) 40 mg Tablet Take 1 tablet by mouth 2 times daily. 60 tablet 5 07/25/2022 atUnknown time ??? Accu-Chek Guide test strips Strip 1 each by Other route 3 times daily. Use as instructed Indications: diabetes mellitus 300 strip 3 07/24/2022 at Unknown time ??? Accu-Chek Softclix Lancets Misc 1 each by Misc.(Non-Drug; Combo Route) route 3 times daily. Indications: diabetes mellitus 300 each 3 07/24/2022 at Unknown time ??? Accu-Chek Guide Glucose Meter Misc 1 each by Misc.(Non-Drug; Combo Route) route daily. Indications: diabetes mellitus 1 each 0 07/24/2022 at Unknown time ??? lidocaine (Xylocaine) 2 % Solution TAKE 10 ML BY MOUTH EVERY 8 HOURS WITH ANTACID 07/25/2022 at Unknown time ??? Antacid-Antigas 200-200-20 mg/5 mL Suspension COMBINE 10 MLS WITH LIDOCAINE ORALLY THREE TIMES A DAY 07/25/2022 at Unknown time ??? clonazePAM (KlonoPIN) 1 mg Tablet Take 1 mg by mouth 3 times daily as needed. 07/25/2022 at Unknown time ??? fluticasone propionate (Flonase) 50 mcg/actuation [place], Suspension 1 spray by Each Nare route nightly. Substitute OTC if needed Indications: inflammation of the nose due to an allergy 16 g 1 07/25/2022 at Unknown time ??? acetaminophen (Tylenol) 500 mg Tablet Take 2 tablets by mouth every 8 hours as needed for Pain.Substitute OTC if needed 60 tablet 1 07/24/2022 at Unknown time ??? vitamin C 500 mg Tablet TAKE ONE TABLET BY MOUTH EVERY DAY Past Month at Unknown time ??? cetirizine (ZyrTEC) 10 mg Tablet TAKE ONE TABLET BY MOUTH EVERY DAY 07/24/2022 at Unknown time ??? fluticasone propionate (Flovent HFA) 110 mcg/actuation HFA Aerosol Inhaler Every 12 hours. 07/24/2022 at Unknown time ??? ipratropium-albuteroL (Duoneb) 0.5 mg-3 mg(2.5 mg base)/3 mL Solution for Nebulization Every 6 hours. 07/24/2022 at Unknown time ??? sucralfate (Carafate) 1 gram Tablet TAKE 1 TABLET BY MOUTH TWICE DAILY ON AN EMPTY STOMACH PastMonth at Unknown time ??? albuterol 90 mcg/actuation HFA Aerosol Inhaler Inhale 2 puffs into the lungs every 4 hours as needed for Wheezing. Use with spacer 07/24/2022 at Unknown time ??? calcium carbonate (TUMS) 200 mg calcium (500 mg) Tablet, Chewable Take 1 tablet by mouth as needed. 07/24/2022 at Unknown time ??? [DISCONTINUED] terconazole (TERAZOL 7) 0.4 % Cream Place 1 applicator vaginally nightly. 45 g 0 ??? [DISCONTINUED] cefPODOXime (Vantin) 200 mg Tablet Take 1 tablet by mouth 2 times daily. 10 tablet 0 ??? [DISCONTINUED] FLUoxetine (PROzac) 20 mg/5 mL (4 mg/mL) Solution daily. ??? [DISCONTINUED] Hydrocortisone 0.5 % Lotion Every 12 hours. ??? [DISCONTINUED] mag/aluminum/sod bicarb/alginc (GAVISCON ORAL) Take by mouth. Allergies Allergen Reactions ??? Augmentin [Amoxicillin-Pot Clavulanate] Rash Unsure if allergic ??? Ipratropium Other (See Comments) ??? Morphine Other (See Comments) Cannot recall ??? Penicillins Rash Patient denies allergy. Take amoxicillin w/o reactions. ??? Seroquel [Quetiapine] Other (See Comments) Made head feel loopy. Family History Problem Relation Age of Onset ??? Migraines Mother ??? Cancer Mother Social History Occupational History ??? Not on file Tobacco Use ??? Smoking status: Current Every [...] activity: Yes Partners: Male Comment: question deferred Immunization History Immunization History Administered Date(s) Administered ??? Influenza Vaccine PF, Quadrivalent 09/12/2010, 07/29/2012, 07/18/2015, 07/28/2018 ??? Tdap Vaccine 07/05/2022 Last Set of Vitals: BP 114/84 (BP Location (NBP): Right arm, Patient Position: Lying) Pulse (!) 102 Temp 36.6 ??C (97.9 ??F) (Oral) Resp 16 Ht 162.6 cm (5' 4) Wt 77.6 kg (171 lb) LMP 11/08/2021 SpO2 99% BMI 29.35 kg/m?? Physical Exam Gen: AAO, resting comfortably Cardio: nl rhythm, S1, S2, no M/C/R/G Pulm: wheezing in left lower lung base, no ronchi or rales. Abd: gravid, moderately tender to palpation in bilateral upper quadrants and epigastric area Ext: warm, well-perfused, no CARYL or calf tenderness Neuro: grossly intact Uterine Size: S=D Clinical EFW: 6lbs Cervix Exam: Dilation: 1 (07/25/22 1523) Effacement: 20 Station: -4 Cervical Position: Posterior Consistency: Soft Coleman Score: 3 OB Examiner: Johan Rangel Carreno balloon with 30cc placed with sterile speculum. Incidental AROM for clear with carreno placement. Miso placed. Pelvis: proven to 3.289kg Presentations: Cephalic by BSUS Heart Rate Interpretation: Baseline: 150, Variability: moderate, Accels: yes, Decels: none, [place]: 1 in 10 minutes Category: I Lab Results Component Value Date ABORH O Pos 01/16/2022 HCT 32.5 (L) 07/25/2022 HGB 11.1 (L) 07/25/2022 MCV 89.0 07/25/2022 RUBLIGG Positive 01/29/2022 GCAMP Negative 01/29/2022 CHLMGENE Negative 01/29/2022 AST 8 07/25/2022 Most Recent Growth Ultrasound Date: 06/28/22 GA at US: 33w1d EFW: 2072g Growth appropriate for gestational age Amniotic fluid volumenormal Placenta fundal Presentation cephalic Assessment & Plan Jose Juan Lundy is a 37 y.o. at 37w0d gestation being admitted for induction of labor in the setting of chronic hypertension and history of cardiac arrest in 09/2021. ?? Labor State: not in labor ?? Heart Rate Assessment: Category 1 ?? Labor management: plan vaginal misoprostol with Carreno Balloon. Pitocin in 4 hours given AROM. ?? GBS Management: UNKNOWN. None Required. Will collect on admission. ?? Hemorrhage Risk: Low ?? Plan early epidural ?? Contraception: desires salpingectomy if section Additional Issues ?? History of cardiac arrest ?? Cardiology following ?? ICD OFF- continuous telemetry during labor. ?? If chest pain/SOB- obtain 12pt EKG, troponins, vitals. Can administer sublingual nitroglycerin for pain. ?? Urgent/emergent Cardiology evaluation for chest/upper back discomfort, unexplained hypotension, hypoxemia, unusual tachycardia or symptomatic/sustained arrhythmias. Please page the cloud subject matter expert plant operations coordinator for questions or concerns ?? cHTN ?? Continue home amlodipine 2.5mg daily during admission ?? Baseline PIH labs on admission ?? History of asthma ?? Consider albuterol nebulizer with symptom exacerbation ?? Anxiety ?? GERD ?? Home famotidine continued This patient was seen and discussed with Dr. Hameed, Attending HIV PREVENTION SPECIALIST. Johan Rangel MD PGY-3 07/25/2022 Consents: - with bilateral salpingectomy Risks of section were reviewed with the patient including but not limited to bleeding, infection, damage to surrounding organs, need for a blood transfusion, and higher risk of blood clots. We also discussed additional risks associated with sterilization including risk of failure, ectopic in the setting of failure, and regret. She had adequate time to ask questions and all questions were answered. Consents were signed. - Narcotics Reviewed risks, benefits and alternatives of acute opioid use, including the risk of crime victimization and instructions on how to dispose of unused medications. She verbalizes understanding of these and signed written consent for prescription of opiates. Associated attestation - Kaila Hameed MD - 07/25/2022 5:19 PM EDT I have seen and examined the patient, providing steiner components as outlined below. I have reviewed the resident???s above note; my evaluation of the patient is below: 37 weeks IOL for maternal cardiac disease h/o arrest possibly related to coronary vasospasm. FM felt, no LOF, no bleeding or anival. C/o nausea and feeling hot. No CP or palps BP 114/84 (BP Location (NBP): Right arm, Patient Position: Lying) Pulse (!) 102 Temp 36.6 ??C (97.9 ??F) (Oral) Resp 16 Ht 162.6 cm (5' 4) Wt 77.6 kg (171 lb) LMP 11/08/2021 SpO2 99% BMI 29.35 kg/m?? NAD Abdomen NT, gravid Ext NT US cephalic I/R 37 IOL for maternal cardiac disease status reassuring Cervix ripening Cardiology consult recommends disabling ICD with magnet. Manage CP with EKG, SL NG, troponin, call cardiology. Continuous telemetry monitoring GBBS unknown Wants BTL KAILA HAMEED MD * Sophy White CNM - 07/25/2022 11:40 AM EDT In error documented in this encounter Miscellaneous Notes * Plan of Care - Debbie Eli RN - 07/29/2022 11:17 AM EDT OUTCOME EVALUATION NOTE: OUTCOME SUMMARY: VSS. Pt independent with care, ambulating and voiding independently without problems managing pain with PRN medications. Attentive to needs. Partner supportive & at bedside. PLAN MOVING FORWARD: Continue to monitor. Plan to d/c pt to home INDIVIDUALIZED FALL PREVENTION INTERVENTIONS: Patient-specific fall risk factors per assessment: [current deficits]: NA Assistance [level of assistance required for transfers and ambulation]: Indendent Supervision [direct monitoring required during toileting and ADLs]: NA Surveillance [continuous indirect monitoring]: VS and rounding per protocol Patient-specific fall prevention interventions for sensory deficits provided, if applicable: NA * Plan of Care - Nevaeh Almazan RN - 07/26/2022 6:40 PM EDT OUTCOME EVALUATION NOTE: OUTCOME SUMMARY: VSS, bleeding wnl. Tele d/c per orders. Ambulating and voiding independently. Significant abdominalpain, [id number] dosing of OTC without relief. One- time dose of tordol this morning was mildly effective. Pain impairing her ability to care for her . PLAN MOVING FORWARD: Continue current plan of care INDIVIDUALIZED FALL PREVENTION INTERVENTIONS: Patient-specific fall risk factors per assessment: [current deficits]: As documented Assistance [level of assistance required for transfers and ambulation]: Independent Supervision [direct monitoring required during toileting and ADLs]: Independent Surveillance [continuous indirect monitoring]: Purposeful rounding, call flaherty in reach Patient-specific fall prevention interventions for sensory deficits provided, if applicable: N/A CPG GOAL OUTCOME EVALUATION: * Initial Assessments - Tiffany Ratliff MSW - 07/26/2022 10:20 AM EDT Rachel Initial Assessment HAROON Dennison reviewed record and discussed patient with Care Team. Source of Information: Conversations with the interdisciplinary teams for both mother and baby; conversation with mother at bedside Introduced self/reviewed role; services accepted. Patient???s Name: Jose Juan Lundy Baby's Name: Christen Reason for Hospitalization: Present on Admission: ??? Encounter for induction of labor Patient receiving hospital care under Inpatient status. Past Medical History: Past Medical History: Diagnosis Date ??? *History of COVID-19 11/05/2021 ??? Anorexia ??? Anxiety 08/03/2014 ??? Asthma 08/03/2014 ??? Flaherty's palsy ??? Chest pain 01/17/2016 ETT 2013- negative ST III Echo 2013 ??Normal LV size and function, trivial TR, mild PI ??? 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 Depression ??? Headache ??? Hypertension 08/03/2014 Hospitalizations Within the Past 30 Days: Yes, frequent hospitalizations here at [facility] for her cardiac condition/conditions during Anticipated Length Of Stay (If known): Unknown Patient/Caregiver Goals of Treatment: to safely discharge with baby once she is medically ready fordischarge Decision-Making Responsibility/Custody: Jose Juan is her own decision-maker; Jose Juan and her partner,Dk, are [facility]'s medical decision-makers and have legal and physical [facility] DCF/DCYF involvement: no current involvement reported; no immediate safety concerns or need for a mandatory report at the time this document was written Current Coping/Education/Information Needs: Jose Juan is coping appropriately with her current admission; she is tired and reported feeling a lot of physical pain in her lower abdomen and stated she currently feels like she is having contractions again. She stated she did let the OB doctors know of her current pain. This SW met with Jose Juan and her partner Dk at bedside later in the day. Both Jose Juan and Dk reported they are excited about their baby girl-- both parents have previous children and wanted another baby. Jose Juan reported she and Dk tried to get for three years, and then she had her cardiac event and became unexpectedly. Home Environment: [facility] [address] [address] [address], [place] Household members: Jose Juan, Dk, their daughters Family Supports: Jose Juan reported she has strong support in her partner Dk and her sisters. Social & Community Resources: Food: No concerns for food insecurity Housing: stable Transportation: has vehicles Financial: no urgent issues Car Seat: Has Mental Health: Jose Juan reproted she is doing okay now, feeling a bit better now that the baby is here but still in a lot of pain, still anxious. Childcare/School: Did not discuss Other: [place]: WIC, Children w/ Special Health Needs, Children???s Integrated Services, Early Intervention: Has WIC, needs WIC for her formula Current Medical Services in the home: VNA: Not currently; accepts referral to VNA DME (including a breast pump): Formula feeding Behavioral Health History/Needs: Jose Juan has a long history of mental health struggles, most notably for depression, anxiety, and recent PTSD following her cardiac event; before that, history of trauma. Jose Juan has [facility] until 2011, she then did not have any inpatient hospitalizations for psych needs until May 2020. Jose Juan reported she has a psychiatrist and does not currently have a mental health therapist. She is concerned for her risk of post depression, but did state she felt confident knowingthat her partner, Dk, will be with her at home and he knows her well enough to know when she is struggling. She accepted a referral to Juany Goss at OBGYN clinic for further support. Substance Use/Abuse: Unremarkable; patient reported her partner, Dk, is currently in recovery at the [facility] program and is doing well. Health/Prescription Coverage: Primary Insurance: MEDICAID [place] Secondary Insurance: N/A Primary Care Provider: None None Transportation at discharge: FOB will transport his family home safely. Anticipated Barriers to Discharge/Special Considerations: No anticipated barriers to discharge Plan: A member of the Care Management team will continue to monitor progress, follow for continuity of care and assist with transition of care planning. HAROON Dennison Pager: [phone] Work * L&D Delivery Note - Lorelei Desai MD - 07/26/2022 12:43 AM EDT Vaginal Delivery Note Jose Juan Lundy??is a 37 y.o.?at 37w1d??gestation who was admitted for induction of labor in the setting of chronic hypertension and history of cardiac arrest in 09/2021. Her wasotherwise notable for anxiety, asthma, and GERD. Labor was induced with 1x PV miso, carreno and . Herlabor course was uncomplicated. She used epidural for analgesia. She was found to be complete at 00:06 with the presenting part at -1 station. The FHR during the second stage was category II due to recurrent variable decelerations. She pushed for 5 minutes and spontaneously delivered at 00:19 hrs. The infant's head was delivered in a controlled fashion. There was 1x nuchal cord that was reduced.The body was delivered without incident. A viable female infant was placed on mother's abdomen and had APGARS of 8 and 9 at 1 and 5 minutes and had a weight of 2775 gm. The cord was clamped in 2 places and transected. Cord blood was taken. The fundus became firm with massage and pitocin. The placenta delivered spontaneously at 00:29 and a3-vessel cord was noted. Inspection of the vagina and perineum revealed a small first degree laceration which was hemostaticand did not require repairt. The labia minora were examined and found have R sided abrasions which did not require repair. No complications. QBL immediately following delivery was 50ml. Total blood loss including blood loss is pending. The patient was in stable condition after delivery. The remained in stable condition at the bedside. Dr. Desai, attending physician was present for the entire delivery without conflicting clinical responsibilities. Janeth Gonzalez DO PGY-1 07/26/2022 Information for the patient's : Roxanna Lundy [[id number]] DELIVERY SUMMARY FOR Baby Samantha Lundy (please note there is a separate summary for each fetus) 07/26/2022 12:19 AM by Vaginal, Spontaneous Sex: female Gestational Age: 37w1d Labor Events labor?: No GBS colonized: unknown Risk factors: without risk factors Cervical ripening type: Carreno, Misoprostol Rupture date/time: 07/25/2022 1627 Rupture type: artificial rupture of membranes Fluid color: clear Labor onset type: induction of labor Indications for induction: maternal disease Augmentation: None Labor onset date/time: 07/25/20222308 Maternal Delivery Complications: chtn Labor Event Times Labor onset date/time: 07/25/20222308 Dilation complete date/time: 07/26/2022 0006 Start pushing date/time: 07/26/2022 0014 Mother Delivery Episiotomy: None Surgical or additional est. blood loss (mL): 0 Combined est. blood loss (mL): 0 Repair suture: None OB OR Quantitative Blood Loss Totals 07/25/222308 - 07/26/22 0322 Vaginal QBL Hospital Encounter 50 mL Total 50 Delivery ([place]) Delivery Date: 07/26/22 Delivery Time: 12:19:00 AM Sex: Female Presentation: Vertex Attempted ?: No Delivery Type: Vaginal Delivery Type (Specific): Vaginal, Spontaneous Pre Vaginal Count?: Yes Post Vaginal Count?: Yes Count Correct?: Yes Shoulder Dystocia Shoulder dystocia present?: No Delivery Information Delivery Location: delivery room Delivering Clinician: Janeth Gonzalez DO Other Personnel: Provider Role Dejah Cancino RN Delivery Nurse Lorelei Desai MD Senior Consulting ManagerTiffany Love nuclear control operator Assist Susie Berry Medical Student Anesthesia Method: Epidural Cord Vessels: 3 Vessels Complications: Nuchal x 1 Gases Sent?: No Cord Insertion: marginal Assessment & APGARS Living status: Living Apgars 1 Minute: 5 Minute: 10 Minute 15 Minute 20 Minute Skin Color: 0 1 Heart Rate: 2 2 Reflex Irritability: 2 2 Muscle Tone: 2 2 Respiratory Effort: 2 2 Total: 8 9 Apgars Assigned By: NIKO ORO Resuscitation Method: Suctioning Suctioning Method: bulb syringe Maternal [place] Feeding and Skin to Skin Maternal Choice for [place](s) Feeding on Admission: Formula Skin to skin initiated date/time: 07/26/2022 0019 Skin to skin with: Mother [place] Medications Medications Given: vitamin K, erythromycin Measurements Weight: 2775 g Length: 0.495 m Head circumference: 0.34 m Placenta Date and Time: 07/26/2022 12:29:00 AM Removal: Spontaneous Appearance: Intact Labor Length 1st stage: 0h 57m 2nd stage: 0h 13m 3rd stage: 0h 10m I was present and supervising during this uncomplicated delivery of a vigorous . LORELEI DESAI MD * Consult Note - Ej Zurita MD - 07/25/2022 1:13 PM EDT Brief Cardiology Consult Note 37 year old female with VF arrest in October 2021 that was felt to be in the setting of coronary vasospasm for which she's s/p ICD placement presents for induction of labor. Briefly, she was previously brought to the hospital following her arrest and underwent TTM with placement of an IABP. Her LHC during that time was notable for clean coronaries (no ischemic etiology of her arrest) and normal coronary anatomy. Her course was uncomplicated and she had Normal BiV function. Further, there was no concern for a non-ischemic CM. Most recently, she had a TTE in February that was also completely normal. Her ICD was last interrogated in May 2022 that showed absolutely no abnormalities. Pertinent home medications - amlodipine 2.5 in AM, 5 in PM - SL ntg prn - H2i Vital Signs Patient Vitals for the past 24 hrs: BP Temp Temp src Pulse Resp SpO2 Height Weight 07/25/22 1133 -- -- -- -- -- -- 162.6 cm (5' 4) 77.6 kg (171 lb) 07/25/22 1130 -- -- -- -- -- 98 % -- -- 07/25/22 1129 120/87 36.4 ??C (97.5 ??F) Oral (!) 103 18 98 % -- -- Labs reviewed, stable Recommendations From our standpoint, she is OK to be induced for labor. Please continue her home amlodipine dose. Should you have any concerns or should she develop chest pain, please obtain an EKG, troponin and vitals. Can administer sublingual nitroglycerin for pain. If there is any bleeding and she is stable, her Hgb goal should be > 7. Should there be any concerns with her blood pressure, her goal SBP/DBP should be those that you usefor other patients. Please feel free to call cardiology with any questions or concerns. Delivery Recommendations: Recommend routine analgesia to limit catecholamine response per OB service. Vaginal delivery is generally recommended, reserving surgical section for obstetric indications. Ok for pushing/maternal expulsive effort Avoid dehydration and hypotension Urgent/emergent Cardiology evaluation for chest/upper back discomfort, unexplained hypotension, hypoxemia, unusual tachycardia or symptomatic/sustained arrhythmias. Please page the cloud subject matter expert plant operations coordinator for questions or concerns Bird Machado Cardiology Attending Addendum: I have personally interviewed and examined the patient and reviewed appropriate data, including labs, ECGs and other diagnostic studies. I agree with the principal findings documented herein. The assessment and plan were formulated in discussion with me. Pertinent Exam: JVP normal; lungs clear; RRR; no edema. Major issues addressed: #History of cardiac arrest 2/2 presumed coronary vasospasm s/p subcutaneous ICD Normal ventricular function. No VT on most recent interrogation. Plan: -Induction of labor per OB team -Continuous telemetry-our team will review (we can do this remotely and in the birthing pavilion) -Continue amlodipine -Otherwise no proactive changes to usual OB care are required -Will continue to follow Ej Zurita MD [facility] 07/25/22 3:27 PM documented in this encounter Plan of Treatment Upcoming Encounters Date Type Department Care Team (Late st Contact Info) Description 09/21/2024 8:15 AM EST Routine Obstetrics [place] [address] Emili Cabrera MD [facility] [place] [address] 09/26/2024 6:00 PM EST Appointment [facility] [place] [phone] 10/16/2024 Hospital [place] [phone] Dudley Aguliar MD [facility] DR OBSTETRICS [place] [address] 11/08/2024 10:00 AM EST Hospital Encounter Non-Invasive [place] [phone] Arrived Scheduled Referrals Name Type Priority Associated Diagnoses Orde r Schedule Amb Referral to [facility] Maternal Child Health Outpatient Referral Routine Single liveborn, born in hospital, delivered by vaginal delivery Ordered: 07/29/2022 documented as of this encounter Procedures Procedure Name Priority Date/Time Associated Diagnosis Comments SPECIMEN TO PATHOLOGY Routine 07/26/2022 1:19 AM EDT SURGICAL PATHOLOGY REPORT Routine 07/26/2022 12:30 AM EDT GROUP B STREPTOCOCCUS SCREEN Routine 07/25/2022 3:27 PM EDT HC GROUP B STREP SCREEN Routine 07/25/20 3:27 PM EDT HC CREATININE Routine 07/25/2022 2:45 PM EDT ASPARTATE AMINOTRANSFERASE Routine 07/25/2022 2:45 PM EDT HEMOGRAM Routine 07/25/2022 12:37 PM EDT DIFFERENTIAL, AUTOMATED Routine 07/25/20 12:37 PM EDT HC CBC,PLT & AUTO DIFF Routine 12:37 PM EDT documented in this encounter Results * Specimen to Pathology (07/26/2022 1:19 AM EDT) AP Specimen 07/26/2022 1:19 AM EDT 07/26/2022 1:19 AM EDT Narrative [facility] - 07/26/2022 1:19 AM EDT Specimen requisition ordered. ??Separate Pathology report to follow Kaila Hameed MD PATHOLOGY/CYTOLOGY ORDERABLES [facility] [place] [address] * Surgical Pathology Report (07/26/2022 12:30 AM EDT) Final Diagnosis [id number] ? Location: ; [facility]; A The signing pathologist has (i) examined the relevant preparation(s) for the specimen(s) and (ii) rendered or confirmed the diagnosis(es). . ?Surgical Pathology DIAGNOSIS A - Term placenta, 458 grams: ?Weight between 25th and 50th percentiles ?Intact maternal decidual surface. ?Membranes with adherent retromembranous blood clots consistent with ?maternal bleeding into the amnionic cavity, and no chorioamnionitis. ?Third trimester villous maturation; no significant focal parenchymal lesion. ?Three vessel hypo-coiled umbilical cord with eccentric insertion and no funisitis. Electronically signed by: ?Dudley Torres MD Verified: ??07/31/2022 10:28 ??Pathologist Performed at: ??-[facility] Dept. of Pathology, [place], [place] SPECIMEN(S) SUBMITTED A - placenta, placenta - for exam (1) CLINICAL INFORMATION cHTN, history cardiac arrest SPECIMEN PROCESSING A - Labeled/Fixative: ?? Placenta, fresh. Quantity/Size/Weig ht: Single, 15 x 14.5 x 3.8 cm, 458 g. Integrity: Intact. Shape: Discoid. Membranes: ? - Insertion: 100% marginal, ? - Color and Clarity: Pale pink and semitransparent. ? - Abnormalities: There is a 5.5 x 2.0 cm adherent retro-membranous blood clot. Cord: ? - Size: 46 cm. ? - Number of Vessels: Three. ? - Insertion site: Eccentric. ? - Cord abnormalities: Hypo-coiled (1-2 revolution's per 10 cm). Surface: ? - Color and Clarity: So-blue and translucent. Maternal Surface: Intact, red-finley cotyledons. Parenchyma: Spongy. Sections/Processin g: Therapy Site Coordinator sections in 8 cassettes as follows: ?A1: ??Membrane roll ?A2: ??Proximal and distal cord ?A3-A8: ??Full-thickness sections, bisected ??det/ajw 07/31/2022 10:28 AM EDT [facility] TISSUE SPECIMEN FROM PLACENTA / Unknown 07/26/2022 12:30 AM EDT 07/26/2022 12:30 AM EDT Janeth Gonzalez DO PATHOLOGY/CYTOLOGY O RDERABLES [facility] [place] [address] * Group B Streptococcus Screen (07/25/2022 3:27 PM EDT) GBS Screen Neg [facility] Vaginal/Rectal 07/25/2022 3: 27 PM EDT 07/25/2022 5:14 PM EDT Comment:Penicillin Allergy?- >Yes Narrative Resulting Agency Comment Spec In Lab Melonie Ballesteros MD MICROBIOLOGY - GENER AL ORDERABLES Performing Organization Address [facility] Co de Phone Number [facility] [place] [address] * Group B Strep Culture Screen (07/25/2022 3:27 PM EDT) Group B Streptococcus Culture No Group B Streptococci isolated [facility] Vaginal/Rectal 07/25/2022 3: 27 PM EDT 07/25/2022 5:14 PM EDT Comment:Penicillin Allergy?- >Yes Narrative Resulting Agency Comment Spec In Lab Kaila Hameed MD MICROBIOLOGY - GEN ERAL ORDERABLES Performing Organization Address [facility] Co de Phone Number [facility] [place] [address] * Aspartate Aminotransferase (07/25/2022 2:45 PM EDT) Aspartate Aminotransferase 8 0 - 30 unit/L [facility] Blood 07/25/2022 2:45 PM EDT 07/25/2022 3:13 PM EDT Narrative Resulting Agency Comment Spec In Lab Kaila Hameed MD CHEMISTRY ORDERABL ES Performing Organization Address [facility] Co de Phone Number [facility] [place] [address] * Creatinine (07/25/2022 2:45 PM EDT) Creatinine 0.72 0.70 - 1.20 mg/dL [facility] Est Glomerular Filtration Rate 110 >=60 mL/min/1. 73 m?? [facility] Comment: This patient's estimated GFR [...] and symptoms in addition to eGFR. Blood 07/25/2022 2:45 PM EDT 07/25/2022 3:13 PM EDT Narrative Resulting Agency Comment Spec In Lab Kaila Hameed MD CHEMISTRY ORDERABL ES [facility] [place] [address] * (ABNORMAL) Differential, Automated (07/25/2022 12:37 PM EDT) Neutrophil % 67.2 % [facility] Neutrophil Absolute 9.11(H) 1.70 - 6.10 x10(3)/mc L [facility] Lymph % 21.6 % [facility] Lymphocytes Abs 2.9 0.9 - 3.2 x10(3)/mc L [facility] Monocyte % 8.0 % [facility] Monocyte Abs 1.1(H) 0.3 - 0.9 x10(3)/mc L [facility] Eos % 1.8 % [facility] Eosinophils Abs 0.2 0.0 - 0.4 x10(3)/mc L [facility] Basophil % 0.3 % [facility] Baso Absolute 0.0 0.0 - 0.1 x10(3)/mc L [facility] Immature Gran % 1.10 % [facility] Comment: Immature granulocytes(IG's)percentage and absolute count will include metamyelocytes, myelocytes, and promyelocytes. Blood smears from CBCs yielding IG's will be scanned manually for concordance. If this scan disagrees with the automated IG or if promyelocytes are noted, a manual differential will be performed. Immature Gran Absolute 0.15(H) 0.00 - 0.04 x10(3)/ L [facility] Blood 07/25/2022 12:3 7 PM EDT 07/25/2022 1:06 PM EDT Narrative Resulting Agency Comment Spec In Lab Sophy White [facility] HEMATOLOGY ORDER SUNDEEP [facility] [place] [address] * (ABNORMAL) Hemogram (07/25/2022 12:37 PM EDT) White Blood Cell 13.6(H) 4.0 - 9.5 x10(3)/[facility] Red Blood Cell 3.65(L) 4.00 - 5.21 x10(6)/[facility] Hemoglobin 11.1(L) 11.7 - 15.5 g/dL [facility] Hematocrit 32.5(L) 35.7 - 45.8 % [facility] Mean Cell Volume 89.0 82.6 - 94.4 fL [facility] Mean Cell Hemoglobin 30.4 27.1 - 32.0 pg [facility] Mean Cell Hemoglobin Concentration 34.2 31.7 - 35.0 g/dL [facility] Platelet 296 145 - 357 x10(3)/[facility] RDW Standard Deviation 53.4(H) 37.0 - 46.0 [facility] RDW coefficient of variation 16.3(H) 11.5 - 14.1 % [facility] Mean Platelet Volume 11.4 7.6 - 12.9 fL [facility] NRBC% auto 0.0 % [facility] NRBC Absolute 0.000 0.000 - 0.000 x10(3)/[facility] Blood 07/25/2022 12:3 7 PM EDT 07/25/2022 1:06 PM EDT Narrative Resulting Agency Comment Spec In Lab Sophy White [facility] HEMATOLOGY ORDER SUNDEEP [facility] [address] [place] [address] documented in this encounter Visit Diagnoses Diagnosis Single liveborn, born in hospital, delivered by vaginal delivery Encounter for induction of labor documented in this encounter Admitting Diagnoses Diagnosis Encounter for induction of labor documented in this encounter Administered Medications Inactive Administered Medications - up to 3 most recent administrations Medication Order MAR Action Action Date Dose Rate Site acetaminophen (Tylenol) tablet 650 mg 650 mg, Oral, EVERY 6 HOURS PRN, Starting on Jenelle 07/25/22 at 1544, Until 07/26/22 at 0118, Pain, Maximum dose of acetaminophen is 4000 mg from all sources in 24 hours. When ordered for pain, acetaminophen should be given even when other ordered pain medications are indicated. , Routine Given 07/25/2022 4:22 PM EDT 650 mg acetaminophen (Tylenol) tablet 975 mg 975 mg, Oral, EVERY 6 HOURS PRN, Starting on 07/26/22 at 0118, Until 07/27/22 at 1048, Pain, Maximum dose of acetaminophen is 4,000 mg from all sources in 24 hours. Both acetaminophen and ibuprofen, if ordered, should be given even when other ordered pain medications are indicated., Routine Given 07/27/2022 10:07 AM EDT 975 mg Given 07/27/2022 4:04 AM EDT 975 mg Given 07/26/2022 9:53 PM EDT 975 mg acetaminophen (Tylenol) tablet 975 mg 975 mg, Oral, EVERY 6 HOURS, First dose (after last modification) on 07/27/22 at 1100, Until Discontinued, Maximum dose of acetaminophen is 4,000 mg from all sources in 24 hours. Both acetaminophen and ibuprofen, if ordered, should be given even when other ordered pain medications are indicated., Routine Given 07/27/2022 2:53 PM EDT 975 mg acetaminophen (Tylenol) tablet 975 mg 975 mg, Oral, EVERY 6 HOURS PRN, Starting on 07/27/22 at 2017, Until 07/29/22 at 1328, Pain, Maximum dose of acetaminophen is 4000 mg from all sources in 24 hours. When ordered for pain, acetaminophen should be given even when other ordered pain medications are indicated. , Routine Given 07/29/2022 3:49 AM EDT 975 mg Given 07/28/2022 8:55 PM EDT 975 mg Given 07/28/2022 3:04 PM EDT 975 mg amLODIPine (Norvasc) tablet 2.5 mg 2.5 mg, Oral, 2 TIMES DAILY, First dose on Jenelle 07/25/22 at 2100, Until Discontinued, Routine Given 07/28/2022 9:08 AM EDT 2.5 mg Given 07/27/2022 8:05 PM EDT 2.5 mg Given 07/27/2022 10:05 AM EDT 2.5 mg amLODIPine (Norvasc) tablet 2.5 mg 2.5 mg, Oral, DAILY, First dose (after last modification) on 07/29/22 at 0900, Until Discontinued, In the AM, Routine Given 07/29/2022 9:38 AM EDT 2.5 mg amLODIPine (Norvasc) tablet 5 mg 5 mg, Oral, EVERY EVENING, First dose on 07/28/22 at 1700, Until Discontinued, Routine Given 07/28/2022 6:33 PM EDT 5 mg clonazePAM (KlonoPIN) tablet 1 mg 1 mg, Oral, 3 TIMES DAILY PRN, Starting on Jenelle 07/25/22 at 1546, Until 07/29/22 at 1328, Anxiety, DO NOT SPLIT, CRUSH OR OPEN Regular tablets should be swallowed whole with water. Disintegrating tablets (ODTs) should be placed in mouth; may be swallowed with or without water. May also be dissolved in small volume (~30 mL) of water if going to be administered via feeding tube., Routine Given 07/29/2022 12:04 AM EDT 1 mg Given 07/28/2022 10:32 AM EDT 1 mg Given 07/27/2022 4:49 PM EDT 1 mg diphenhydrAMINE/aluminum-magnesium hydroxide with simethicone/lidocaine (BMX) (6.67 mg-0.83 mg-13.33 mg-1.33 mg/mL) oral liquid 5 mL 5 mL, Oral, 2 TIMES DAILY, First dose on Jenelle 07/25/22 at 2100, Until Discontinued, Each 5 mL contains equal parts of diphenhydramine (BENADYL), aluminum-magnesium hydroxide w/ simethicone (MAALOX), and lidocaine (XYLOCAINE) , Routine Given 07/29/2022 9:40 AM EDT 5 mLs Given 07/28/2022 8:58 PM EDT 5 mLs Given 07/28/2022 9:07 AM EDT 5 mLs famotidine (Pepcid) tablet 40 mg 40 mg, Oral, 2 TIMES DAILY, First dose on Jenelle 07/25/22 at 2100, Until Discontinued, Routine Given 07/29/2022 9:38 AM EDT 40 mg Given 07/28/2022 8:56 PM EDT 40 mg Given 07/28/2022 9:08 AM EDT 40 mg fentaNYL (2 mcg/mL)-BUpivacaine (Marcaine) 0.125% (1.25 mg/mL)(1/8%) in sodium chloride 0.9% 250 mL epidural Epidural, PCEA Dose: 3 mL, PCEA Frequency: Every 20 minutes, Maximum rate for continuous infusion 14 mL per hour Maximum total epidural rate (continuous and PCEA bolus) is 25 mL per hour, Recovery (Recovery-Hospital Unit) New Bag 07/25/2022 8:10 PM EDT 6 mL/hr 6 mL/hr fentaNYL (2 mcg/mL)-BUpivacaine (Marcaine) 0.125% (1.25 mg/mL)(1/8%) in sodium chloride 0.9% 250 mL epidural Epidural, PCEA Dose: 5 mL, PCEA Frequency: Every 20 minutes, Maximum rate for continuous infusion 14 mL per hour Maximum total epidural rate (continuous and PCEA bolus) is 25 mL per hour, Recovery (Recovery-Hospital Unit) New Bag 07/25/2022 10:45 PM EDT 10 mL/hr 10 mL/hr fentaNYL (PF) (50 mcg/mL) injection 50 mcg 50 mcg, Intravenous, ONCE, 1 dose, On Jenelle 07/25/22 at 2030, If medication ordered subcutaneously, do not administer more than 2 mL as a single injection., Routine Given 07/25/2022 8:15 PM EDT 50 mcg Given 07/25/2022 7:48 PM EDT 50 mcg fentaNYL (PF) (Sublimaze) 50 mcg/mL injection 1 dose, Starting on Jenelle 07/25/22 at 1945, Until Jenelle 07/25/22 at 1948, CODEY LOZADA: cabinet override fentaNYL 2 mcg/mL with BUpivacaine 0.125% (1.25 mg/mL) (1/8%) in NS(PF) 2 mcg/mL- 0.125 % neuraxial Dejah Cancino(faculty): cabinet override hydrOXYzine (Atarax) tablet 25 mg 25 mg, Oral, ONCE PRN, 1 dose, Starting on Jenelle 07/25/22 at 1943, Until Jenelle 07/25/22 at 2016, Anxiety, STAT Given 07/25/2022 8:16 PM EDT 25 mg ibuprofen (Advil) tablet 600 mg 600 mg, Oral, EVERY 6 HOURS, First dose on Fri07/26/22 at 1700, Until Discontinued, Start 6 hours after last dose of Toradol, Routine Given 07/29/2022 7:04 AM EDT 600 mg Given 07/29/2022 12:01 AM EDT 600 mg Given 07/28/2022 6:00 PM EDT 600 mg ibuprofen (Advil) tablet 800 mg 800 mg, Oral, EVERY 8 HOURS PRN, Starting on Fri07/26/22 at 0118, Until Fri07/26/22 at 1004, Pain, Administer orally with milk or food to minimize GI irritation. Maximum dose of 3,200 mg from all sources in 24 hours Both acetaminophen and ibuprofen, if ordered, should be given even when other ordered pain medications are indicated, Routine Given 07/26/2022 5:21 AM EDT 800 mg ketorolac (Toradol) (15 mg/mL) injection 15 mg 15 mg, Intravenous, ONCE, 1 dose, On Fri07/26/22 at 1100, Routine Given 07/26/2022 11:00 AM EDT 15 mg ketorolac (Toradol) (15 mg/mL) injection 15 mg 15 mg, Intravenous, ONCE, 1 dose, On Fri07/27/22 at 0615, Routine Given 07/27/2022 5:32 AM EDT 15 mg lactated Ringers 500 mL IV bolus at 500 mL/hr, Intravenous, ONCE PRN, 1 dose, Starting on Jenelle 07/25/22 at 1204, Until Jenelle 07/25/22 at 1912, Prior to epidural placement or concerning heart rate pattern or maternal condition. New Bag 07/25/2022 6:12 PM EDT 500 mL/hr lactated ringers infusion 100 mL/hr, Intravenous, CONTINUOUS, Starting on Jenelel 07/25/22 at 1300, Until Fri07/26/22 at 0118, Maximum 125 mL in one hour. New Bag 07/25/2022 7:12 PM EDT 100 mL/hr 100 mL/hr lidocaine (Lidoderm) 5% patch 1 patch 1 patch, Transdermal, EVERY 24 HOURS, First dose on 07/27/22 at 0345, Until Discontinued, Apply patch(es) for 12 hours, and then remove for 12 hours., Routine Patch Applied 07/27/2022 3:05 AM EDT 1 patch 14- Abdomen (Right) lidocaine (Lidoderm) topical patch REMOVAL Transdermal, EVERY 24 HOURS, First dose on 07/27/22 at 1500, Until Discontinued, Remove lidocaine 5% patch miSOPROStoL (Cytotec) tablet 25 mcg 25 mcg, Vaginal, EVERY 4 HOURS PRN, 6 doses, Starting on Jenelle 07/25/22 at 1529, Until Fri07/26/22 at 0118, ripening, Until active labor., Routine Given 07/25/2022 4:22 PM EDT 25 mcg nicotine (Nicoderm CQ) 14 mg/24 hr patch 14 mg 14 mg (1 patch), Transdermal, Administer over 24 Hours, DAILY, First dose on Fri07/26/22 at 1100, Until Discontinued, Apply new patch to nonhairy, clean, dry skin on the upper body or upper outer arm; each patch should be applied to a different site , Routine nicotine (NICODERM CQ) 14 mg/24 hr patch Patch Verification Transdermal, 2 TIMES DAILY, First dose on Fri07/26/22 at 2215, Until Discontinued, Verify nicotine 14 mg/24 hr patch. ondansetron (Zofran) tablet 4 mg 4 mg, Oral, EVERY 8 HOURS PRN, Starting on Fri07/26/22 at 2034, Until 07/29/22 at 1328, Nausea, Routine oxyCODONE (Roxicodone) tablet 5 mg 5 mg, Oral, EVERY 4 HOURS PRN, Starting on Fri07/26/22 at 2032, Until 07/27/22 at 1145, Pain, Routine Given 07/26/2022 8:56 PM EDT 5 mg oxytocin (Pitocin) (0.06 units/mL) in sodium chloride 0.9% 500 mL infusion 30 Units (500 mL), Intravenous, Administer over 1 Hours, ONCE, 1 dose, On Fri07/26/22 at 0215, ., Routine New Bag 07/26/2022 12:20 AM EDT 30 Units polyethylene glycoL (Miralax) packet 17 g 17 g, Oral, DAILY, First dose on Fri07/26/22 at 0900, Until Discontinued, Routine Given 07/29/2022 9:39 AM EDT 17 g Given 07/28/2022 9:07 AM EDT 17 g senna-docusate (Pericolace) 8.6-50 mg per tablet 2 tablet 2 tablet, Oral, 2 TIMES DAILY, First dose on Fri07/26/22 at 0215, Until Discontinued, Administer to achieve 1 soft bowel movement daily without straining , Routine Given 07/29/2022 9:38 AM EDT 2 tablets Given 07/28/2022 8:55 PM EDT 2 tablets Given 07/28/2022 9:00 AM EDT 2 tablets sodium chloride 0.9 % (flush) (BD PosiFlush Normal Saline 0.9) flush 5 mL 5 mL, Intravenous, 2 TIMES DAILY, First dose on Jenelle 07/25/22 at 1300, Until Discontinued, Routine Given 07/25/2022 1:00 PM EDT 5 mLs documented in this encounter Active and Recently Administered Medications Times are shown in EDT. Scheduled Medication Order 07/27/2022 07/28/2022 07/29/2022 acetaminophen (Tylenol) tablet 975 mg (CANCELED) 975 mg, Oral, EVERY 6 HOURS, First dose (after last modification) on 07/27/22 at 1100, Until Discontinued, Maximum dose of acetaminophen is 4,000 mg from all sources in 24 hours. Both acetaminophen and ibuprofen, if ordered, should be given even when other ordered pain medications are indicated., Routine 1453 (Given - Provider: Kimi Ahmadi RN)1700 (Due) amLODIPine (Norvasc) tablet 2.5 mg (CANCELED) 2.5 mg, Oral, 2 TIMES DAILY, First dose on Jenelle 07/25/22 at 2100, Until Discontinued, Routine 1005 (Given - Provider: Kimi Ahmadi RN)2004 (Given - Provider: Nevaeh Travis RN) 907 (Given - Provider: Kimi Ahmadi RN) amLODIPine (Norvasc) tablet 2.5 mg 2.5 mg, Oral, DAILY, First dose (after last modification) on 07/29/22 at 0900, Until Discontinued, In the AM, Routine 0938 (Given - Provider: Debbie Eli, SYBIL) amLODIPine (Norvasc) tablet 5 mg 5 mg, Oral, EVERY EVENING, First dose on Fri07/28/22 at 1700, Until Discontinued, Routine 1833 (Given - Provider: Kimi Ahmadi RN) diphenhydrAMINE/aluminum- magnesium hydroxide with simethicone/lidocaine (BMX) (6.67 mg-0.83 mg-13.33 mg-1.33 mg/mL) oral liquid 5 mL 5 mL, Oral, 2 TIMES DAILY, First dose on Jenelle 07/25/22 at 2100, Until Discontinued, Each 5 mL contains equal parts of diphenhydramine (BENADYL), aluminum-magnesium hydroxide w/ simethicone (MAALOX), and lidocaine (XYLOCAINE) , Routine 1007 (Given - Provider: Kimi Ahmadi RN)2004 (Given - Provider: Nevaeh Travis RN) 906 (Given - Provider: Kimi Ahmadi RN)2057 (Given - Provider: Jerilyn Del Valle RN) 0940 (Given - Provider: Debbie Eli RN) famotidine (Pepcid) tablet 40 mg 40 mg, Oral, 2 TIMES DAILY, First dose on Jenelle 07/25/22 at 2100, Until Discontinued, Routine 1006 (Given - Provider: Kimi Ahmadi RN)2004 (Given - Provider: Nevaeh Travis RN) 09 (Given - Provider: Kimi Ahmadi RN)2055 (Given - Provider: Jerilyn Del Valle RN) 0938 (Given - Provider: Debbie Eli RN) ibuprofen (Advil) tablet 600 mg 600 mg, Oral, EVERY 6 HOURS, First dose on Fri07/26/22 at 1700, Until Discontinued, Start 6 hours after last dose of Toradol, Routine 0500 (Not Given - Provider: Cammie Abernathy RN - Reason: Per MD Order)1050 (Given - Provider: Kimi Ahmadi RN)1754 (Given - Provider: Kimi Ahmadi RN)2357 (Given - Provider: Nevaeh Travis RN) 0610 (Given - Provider: Nevaeh Travis RN)1156 (Given - Provider: Kimi Ahmadi RN)1800 (Given - Provider: Kimi Ahmadi RN) 0001 (Given - Provider: Jerilyn Del Valle RN)0500 (Hold - Provider: Jerilyn Del Valle RN - Reason: Patient/family refused)0704 (Given - Provider: Jerilyn Del Valle RN)1100 (Due) ketorolac (Toradol) (15 mg/mL) injection 15 mg (COMPLETED) 15 mg, Intravenous, ONCE, 1 dose, On 07/27/22 at 0615, Routine 0532 (Given - Provider: Cammie Abernathy RN) lidocaine (Lidoderm) 5% patch 1 patch(Linked Group 1) 1 patch, Transdermal, EVERY 24 HOURS, First dose on 07/27/22 at 0345, Until Discontinued, Apply patch(es) for 12 hours, and then remove for 12 hours., Routine 0305 (Patch Applied - Provider: Cammie Abernathy RN) 0345 (Due) 0345 (Hold - Provider: Jerilyn Del Valle RN - Reason: Patient/family refused) lidocaine (Lidoderm) topical patch REMOVAL(Linked Group 1) Transdermal, EVERY 24 HOURS, First dose on 07/27/22 at 1500, Until Discontinued, Remove lidocaine 5% patch 1500 (Patch Removed - Provider: Kimi Ahmadi RN) 1500 (Patch Not Removed (add comment) - Provider: Jerilyn Del Valle RN - Comment: pt not wearing it) nicotine (Nicoderm CQ) 14 mg/24 hr patch 14 mg(Linked Group 2) 14 mg (1 patch), Transdermal, Administer over 24 Hours, DAILY, First dose on Fri07/26/22 at 1100, Until Discontinued, Apply new patch to nonhairy, clean, dry skin on the upper body or upper outer arm; each patch should be applied to a different site , Routine 899 (Due) 0900 (Not Given - Provider: Kimi Ahmadi RN - Reason: Patient/family refused) 09 (Not Given - Provider: Debbie Eli RN - Reason: Patient/family refused) nicotine (NICODERM CQ) 14 mg/24 hr patch Patch Verification(Linked Group 2) Transdermal, 2 TIMES DAILY, First dose on Fri07/26/22 at 2215, Until Discontinued, Verify nicotine 14 mg/24 hr patch. 0900 (Due)2099 (Due) 09 (Not Given - Provider: Kimi Ahmadi RN - Reason: Patient/family refused)2099 (Hold - Provider: Jerilyn Del Valle RN - Reason: See comment - Comment: patch not on, pt refusing patch) 09 (Patch Not Verified (add comment) - Provider: Debbie Eli RN - Comment: patient refused patch not present) polyethylene glycoL (Miralax) packet 17 g 17 g, Oral, DAILY, First dose on Fri07/26/22 at 0900, Until Discontinued, Routine 899 (Due) 09 (Given - Provider: Kimi Ahmadi RN) 0939 (Given - Provider: Debbie Eli RN) senna-docusate (Pericolace) 8.6-50 mg per tablet 2 tablet 2 tablet, Oral, 2 TIMES DAILY, First dose on Fri07/26/22 at 0215, Until Discontinued, Administer to achieve 1 soft bowel movement daily without straining , Routine 1006 (Given - Provider: Kimi Ahmadi RN)2003 (Given - Provider: Nevaeh Travis RN) 899 (Given - Provider: Kimi Ahmadi RN)2054 (Given - Provider: Jerilyn Del Valle RN) 0938 (Given - Provider: Debbie Eli RN) PRN Medication Order 07/27/2022 07/28/2022 07/29/2022 acetaminophen (Tylenol) tablet 975 mg (CANCELED) 975 mg, Oral, EVERY 6 HOURS PRN, Starting on 07/26/22 at 0118, Until 07/27/22 at 1048, Pain, Maximum dose of acetaminophen is 4,000 mg from all sources in 24 hours. Both acetaminophen and ibuprofen, if ordered, should be given even when other ordered pain medications are indicated., Routine 0404 (Given - Provider: Cammie Abernathy RN)1007 (Given - Provider: Kimi Ahmadi RN) acetaminophen (Tylenol) tablet 975 mg 975 mg, Oral, EVERY 6 HOURS PRN, Starting on 07/27/22 at 2017, Until 07/29/22 at 1328, Pain, Maximum dose of acetaminophen is 4000 mg from all sources in 24 hours. When ordered for pain, acetaminophen should be given even when other ordered pain medications are indicated. , Routine 210 (Given - Provider: Nevaeh Travis RN) 0305 (Given - Provider: Nevaeh Travis RN)0908 (Given - Provider: Kimi Ahmadi RN)1504 (Given - Provider: Kimi Ahmadi RN)2055 (Given - Provider: Jerilyn Del Valle RN) 0349 (Given - Provider: Jerilyn Del Valle RN) clonazePAM (KlonoPIN) tablet 1 mg 1 mg, Oral, 3 TIMES DAILY PRN, Starting on Jenelle 07/25/22 at 1546, Until 07/29/22 at 1328, Anxiety, DO NOT SPLIT, CRUSH OR OPEN Regular tablets should be swallowed whole with water. Disintegrating tablets (ODTs) should be placed in mouth; may be swallowed with or without water. May also be dissolved in small volume (~30 mL) of water if going to be administered via feeding tube., Routine 0305 (Given - Provider: Cammie Abernathy RN)1209 (Given - Provider: Kimi Ahmadi RN)1649 (Given - Provider: Kimi Ahmadi RN) 1032 (Given - Provider: Kimi Ahmadi RN) 0004 (Given - Provider: Jerilyn Del Valle RN) ondansetron (Zofran) tablet 4 mg 4 mg, Oral, EVERY 8 HOURS PRN, Starting on Fri07/26/22 at 2034, Until 07/29/22 at 1328, Nausea, Routine Linked Groups Order Group 1: lidocaine (Lidoderm) 5% patch 1 patchJump to med 1 patch, Transdermal, EVERY 24 HOURS, First dose on Fri07/27/22 at 0345, Until Discontinued, Apply patch(es) for 12 hours, and then remove for 12 hours., Routine And lidocaine (Lidoderm) topical patch REMOVALJump to med Transdermal, EVERY 24 HOURS, First dose on Fri07/27/22 at 1500, Until Discontinued, Remove lidocaine 5% patch Group 2: nicotine (Nicoderm CQ) 14 mg/24 hr patch 14 mgJump to med 14 mg (1 patch), Transdermal, Administer over 24 Hours, DAILY, First dose on Fri07/26/22 at 1100, Until Discontinued, Apply new patch to nonhairy, clean, dry skin on the upper body or upper outer arm; each patch should be applied to a different site , Routine And nicotine (NICODERM CQ) 14 mg/24 hr patch Patch VerificationJump to med Transdermal, 2 TIMES DAILY, First dose on Fri07/26/22 at 2215, Until Discontinued, Verify nicotine 14 mg/24 hr patch. documented in this encounter Care Teams Graduate Intern Relationship Specialty Start Date End Date None None PCP - General 05/30/22 09/28/23 documented as of this encounter
--- OUTSIDE RECORDS SUMMARY | 2024-09-20 11:05 | XMS_ITS | Encounter Summary ---
Author Organization Formerly [facility] [place] [address] Care Team Providers Care Academic Manager Name Role Phone None Primary Care Provider Unavailabl e Reason for Visit * Auth/Cert Specialty Diagnoses / Procedures Referred By Contac t Referred To Contact Diagnoses . Procedures VAGINAL DELIVERY Kaila Castellanos MD [facility] [address] OBSTETRICS [place] [address] [facility] Referral ID Status Reason Start Date Expiration Date Visits Re quested Visits Authorized [id number] 1 1 Encounter Details Date Type Department Care Team (Latest Contact Info) Description 07/25/2022 11:03 AM EDT - 07/25/2022 11:59 PM EDT Hospital Encounter [facility] [place] [phone] Discharge Disposition: Home Social History Tobacco Use [...] each 07/29/2022 fluticasone propionate (Flonase) 50 mcg/actuation [place], SuspensionIndications :allergic rhinitis 1 spray by Each [...] at night. 180 tablet 1 06/28/2022 10/31/2022 famotidine (Pepcid) 40 mg Tablet Take 1 [...] Indications: diabetes mellitus 1 each 06/12/2022 07/29/2022 lidocaine (Xylocaine) 2 % Solution TAKE 10 ML BY MOUTH EVERY 8 HOURS WITH ANTACID 04/17/2022 10/31/2022 Antacid-Antigas 200-200-20 mg/5 mL Suspension COMBINE 10 MLS WITH LIDOCAINE ORALLY THREE TIMES A DAY 04/25/2022 10/31/2022 clonazePAM (KlonoPIN) 1 mg Tablet Take 1 mg by mouth 3 times daily as needed. 12/23/2021 03/02/2024 acetaminophen (Tylenol) 500 mg Tablet Take 2 [...] AM EST Routine Obstetrics [place] [phone] Emili Cabrera MD [facility] [place] [address] 09/26/2024 6:00 PM EST Appointment [facility] [place] [phone] 10/16/2024 [place] [phone] Dudley Aguilar MD [facility] DR OBSTETRICS [place] [address] 11/08/2024 10:00 AM EST Hospital Encounter [place] [phone] Arrived documented as of this encounter Visit Diagnoses Not on filedocumented in this encounter Care Teams Academic Manager Relationship Specialty Start Date End Date None None PCP - General 05/30/22 09/28/23 documented as of this encounter
--- OUTSIDE RECORDS SUMMARY | 2024-09-20 11:05 | XMS_ITS | Encounter Summary ---
Author Organization Formerly [facility] Address [facility] [place] [address] Care Team Providers Care Powderman Name Role Phone None Primary Care Provider Unavailabl e Encounter Details Date Type Department Care Team (Late st Contact Info) Description 08/06/2022 Home Care Visit [facility] Maternal Child Health [address] [place] [phone] Willow Champagne RN TELEPHONE ENCOUNTER Social History Tobacco Use Types Packs/Day Years [...] AM EST Routine Obstetrics [place] [address] Emili Cabrera MD [facility] [place] [address] 09/26/2024 6:00 PM EST Appointment [facility] [place] [phone] 10/16/2024 Hospital [place] [phone] Dudley Aguilar MD [facility] OBSTETRICS AND G[place]ECOLOGY [place] [id number] 11/08/2024 10:00 AM EST Hospital Encounter Non-[place] [phone] Arrived documented as of this encounter Visit Diagnoses Not on filedocumented in this encounter Care Teams Powderman Relationship Specialty Start Date End Date None None PCP - General 05/30/22 09/28/23 documented as of this encounter
--- OUTSIDE RECORDS SUMMARY | 2024-09-20 11:05 | XMS_ITS | Encounter Summary ---
Author Organization [facility] Address [facility] [place] [address] Care Team Providers Care Folder Hand Name Role Phone None Primary Care Provider Unavailabl e Reason for Visit * Reason Comments Laboring With bleeding earlie r in the night * Auth/Cert Specialty Diagnoses / Procedures Referred By Contac t Referred To Contact Diagnoses . Procedures VAGINAL DELIVERY Kaila Castellanos MD [facility] OBSTETRICS [place] [address] [facility] Referral ID Status Reason Start Date Expiration Date Visits Re quested Visits Authorized [id number] 1 1 Encounter Details Date Type Department Care Team (Latest Contact Info) Description 07/23/2022 12:14 AM EDT - 07/23/2022 4:56 AM EDT [place] [phone] Jewels Gold MD [facility] OBSTETRICS [place] [address] Subcutaneous defibrillator implanted 11/12/2021; Cardiac arrest; Coronary artery vasospasm; Chest pain, unspecified type Discharge Disposition: Home Social History [...] Sign Reading Time Taken Comments Blood Pressure 101/50 07/23/2022 3:35 AM EDT Pulse 68 07/23/2022 3:35 AM EDT Temperature 36.5 ??C (97.7 ??F) 07/23/2022 3:35 AM ED T Respiratory Rate 16 07/23/2022 3:35 AM EDT Oxygen Saturation 97% 07/23/2022 3:35 AM EDT Inhaled Oxygen Concentration - - Weight - - Height - - Body Mass Index - - documented in this encounter Discharge Instructions * Discharge Instructions* Teodora Lorenz RN - 07/23/2022 4:22 AM EDT GESTATION - Less Than 37 Weeks Call your provider if: You are feeling any cramping sensations in your abdomen less than 20 minutes apart Harmony-Alvarez Contractions usually are irregular may get less [...] a vaginal exam in your doctor's or digital pre press operator's office you should not bleed as much [...] dehydration Keep your regularly scheduled doctor or digital pre press operator appointment To contact the OB doctor call To contact digital pre press operator call Following your visit to [facility] Triage: New Medications: Special Instructions / Follow-up Care: documented in this encounter Medications at Time of Discharge Medication Sig Dispensed Refills Start Date End Date acetaminophen (Tylenol) 325 mg Tablet Take 3 tablets by mouth every 6 hours as needed for Pain. 30 tablet 1 07/29/2022 polyethylene glycoL (Miralax) 17 gram Powder in Packet Take 17 g by mouth daily. 14 each 07/29/2022 fluticasone propionate (Flonase) 50 mcg/actuation Lutz, SuspensionIndications :allergic rhinitis 1 spray by Each [...] every day 84 tablet 3 07/29/2022 10/05/2022 terconazole (TERAZOL 7) 0.4 % Cream Place 1 applicator vaginally nightly. 45 g 07/19/2022 07/25/2022 nitroGLYcerin (Nitrostat) 0.4 mg Tablet, Sublingual Place [...] as of this encounter Progress Notes * Teodora Lorenz RN - 07/23/2022 4:25 AM EDT Aniya left the unit in stable condition. She denies any questions or concerns. She understands tocall the unit 07/25/22 to find out when to come in for her induction. She understands when to contact the physician or return to the hospital with any new concerns. She left in wheelchair with her SO. * Teodora Lorenz RN - 07/23/2022 2:20 AM EDT Aniya stated she feels better and does not want to wait for the lab results. She is ready to go home. Physician team updated. * Jewels Gold MD - 07/23/2022 12:39 AM EDT OB Triage Note 07/23/2022 4:50 PM Aniya Luque is a 37 y.o. year old female with an NZAIA of 08/15/2022, by Last Menstrual Period who is at 36w5d weeks gestation. Chief Complaint: The patient presents for evaluation of vaginal bleeding. Reports she was seen at [facility] today due to pain. Report is unclear. She believes she did not have a speculum exam or cervical exam, but did have a swab for r/o rupture. Aniya called on-call line earlier today reporting vaginal bleeding with wiping 3 times She also reports abdominal pain off and on since noon today, consistent with prior episodes for which she has been seen in triage. She however fetl a strong period cramp around 1730. Then she went to the bathroom, and saw some bright red bleeding with wiping. She showed a picture that revealed bright red spotting. She is feeling fluttering movement, but feels it is less movement than usual. Unsure leakageof fluid because of questionable stress incontinence. No vaginal irritation or itchiness. She reports bad headache which started several hours ago. She took nitroglycerine for chest pain [id number] which typically gives her a headache but this is different. She takes nitroglycerine about once a week. Chest pain is now resolved. She has not taken tylenol for her headache. She has SOB at baseline, not acutely worsened. Reports significant stress for past few days and reports possible anxiety attack. Reports off-and-on pain in bilateral upper quadrants, worse in right. Has not noticed worsening swelling. Denies visual changes. Movement: decreased Contractions: irregular Leaking: unsure Bleeding: bright red Preeclampsia signs and symptoms: headache, epigastric pain and SOB, Chest pain PE Temp: [36.5 ??C (97.7 ??F)] Heart Rate: [68-91] Resp: [16] BP: (101-121)/(50-84) SpO2: [97 %-98 %] Heart Rate from SpO2: [90 bpm] Cervix Exam: soft, posterior, Dr. Madrigal FHR Evaluation: Baseline 130s/ mod variability/ accelerations present / no decelerations Sterile Speculum; no pooling of fluid seen, blood clot (pea sized) settled periurethral, Nitrizine test is negative, vaginal discharge thick white Labs Lab Results Component Value Date/Time HGB 11.5 (L) 07/23/2022 01:45 AM PLATELET 308 07/23/2022 01:45 AM CREATININE 0.84 07/23/2022 01:45 AM AST 11 07/23/2022 01:45 AM Lab Results Component Value Date/Time TROPONINT <0.01 07/23/2022 01:45 AM Assessment 37 y.o. year old female with an 08/15/2022, by Last Menstrual Period who is at 36w5d weeks gestation being evaluated for vaginal bleeding. Incidental reports prompted workup for preE and MS. ?? Heart Rate Assessment: Category 1 ?? Not in Labor: cervix unchanged from past 4 exams over the course of >1 week Additional issues: ?? Chest pain ?? Cardiology Consult: trend troponins if <14 discharge, made aware of induction 07/25 ?? EKG and troponins were reassuring. Return precautions given. ?? GEORGE/RUQ pain/SOB/Chest Pain: Bps and pre-e labs were reassuring for no signs of pre-E. Return pecautions given. ?? Stress incontinence v LOF: Nitrazine negative, more likely stress incontinence. Return precautions given. Janeth Gonzalez DO 07/23/2022 I saw and evaluated this patient with Dr. Gonzalez. We consulted cardiology for this complicated patientand I am grateful for the help JEWELS GOLD MD * Teodora Lorenz RN - 07/23/2022 12:39 AM EDT Aniya presented with complaints of contractions and bleeding earlier in the night. She said they vary on how often she has them. She denies chest pain or cardiac symptoms at this time. She stated she had mild chest pain around 2130 on 07/22/2022 and took one nitro. She also stated she was at another hospital earlier in the day and they checked her to see if she ruptured her membranes and it was negative and they were not able to get to her cervix. Physician team updated. documented in this encounter Miscellaneous Notes * Consult Note - Graham Moreira MD - 07/23/2022 1:41 AM EDT Images from the original note were not included. [facility] [place] [address] [place] [phone] INPATIENT CARDIOLOGY CONSULT NOTE Date of Consultation: 07/23/2022 Admit Date: 07/23/2022 Hospital Day 0 days Reason for Consult: chest pain Active Problems: There are no hospital problems to display for this patient. HPI: Aniya Luque is a 37 y.o. 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 She noted chest pain earlier in the evening for which she took nitroglycerine and cardiology was consulted given her high risk history. She had COVID-19 diagnosed in September 2021 and during that time she awoke with severe heartburn and palpitations and asked her fianc??, Dk, for a wet washcloth. When he returned, she was found unresponsive. He performed 10 minutes of bystander CPR before EMS arrived. EMS found her in ventricularfibrillation and performed additional CPR with 1 shock and 2 rounds of epi. On arrival to the emergency room, initial VBG found pH 7.09, lactate 6.5 and she was intubated. Postresuscitation ECG showed sinus rhythm with QTC 484 and no ischemic changes. There is no evidence of Brugada or other accessory pathway. CT PE was negative. She underwent cardiac catheterization after having several episodesof ventricular fibrillation requiring resuscitation. During catheterization, she was found to have severe spasm of her femoral artery on engagement of the catheter as well as the LM, LAD, and LCX during injections. Progressive QRS widening with ST deviation was seen during the small volume/low pressure hand injections and shortly afterwards she developed VT with rapid deterioration into VF which responded to a single shock. An electrical storm followed with repeat episodes requiring ~8 countershocks, each effective in restoring NSR but only temporarily with a persistently wide QRS. She was loaded with lidocaine and amiodarone. The right coronary was unable to be engaged due to hemodynamic instability. She was given IV nicardipine, IABP, and stabilized in the ICU. Echo notable for LVEF 68% with no wall motion abnormalities shortly after the event. After recovery of neurologic status, subcutaneous ICD was placed and she was discharged home. There was plans for outpatient coronary angiogram to reevaluate her coronary anatomy which has not been performed. It was felt that severe multi arterial bed spasm may have been the culprit in the setting of active COVID infection. She was started on amlodipine 10 mg qd. She is currently on 2.5mg bid. Most recent CT angiogram of her coronaries was 01/23/22 noted CAC 11, right dominant circulation, small calcified plaque in LAD and RCA with < 25% narrowing. No other abnormalities. She was last seen by Dr. Brasher in the cardio-obstetrics clinic on 07/09 and did report some minor chest pains and anxiety. Symptoms were thought to be non- cardiac in nature. She remains on a calcium channel nash for presumed coronary vasospasm. She is due for delivery soon and this will be plannedwith cardiology assistance. Earlier in the evening she experienced a couple of episodes of chest discomfort. She describes it as sharp, tingly, on the top of her chest. She occasionally thinks it worsens with breathing, but this is not reproducible. She took a nitroglycerin for the pain earlier today around 2100 and this did not reliably make the pain any better. She says occasionally it may work but other times not. She has dealt off and on with this chest sensation for months now. She wonders if anxiety is contributing.She and her are anxious to leave the OB triage and go back home at this point in the morning as she has not had any chest pain since being in the hospital and the pains are not new. Past Medical History: Diagnosis Date ??? *History [...] ENDOSCOPY performed by Dudley Alva MD at [facility] ENDOSCOPY Allergies Allergen Reactions ??? Augmentin [Amoxicillin-Pot Clavulanate] Rash Unsure if allergic ??? Ipratropium Other (See Comments) ??? Morphine Other (See Comments) Cannot recall ??? Penicillins Rash Patient denies allergy. Take amoxicillin w/o reactions. ??? Seroquel [Quetiapine] Other (See Comments) Made head feel loopy. Out-Patient Medications: Medications Prior to Admission Medication Sig Dispense Refill Last Dose ??? terconazole (TERAZOL 7) 0.4 % Cream Place 1 applicator vaginally nightly. 45 g 0 ??? nitroGLYcerin (Nitrostat) 0.4 mg Tablet, Sublingual Place 1 tablet under the tongue every 5 minutes as needed for Chest pain. 30 tablet 1 ??? Norvasc 2.5 mg Tablet Take 1 tablet by mouth 2 times daily. Take 1 tablet in the morning and 2 tablets at night. 180 tablet 1 ??? cefPODOXime (Vantin) 200 mg Tablet Take 1 tablet by mouth 2 times daily. 10 tablet 0 ??? famotidine (Pepcid) 40 mg Tablet Take 1 tablet by mouth 2 times daily. 60 tablet 5 ??? Accu-Chek Guide test strips Strip 1 each by Other route 3 times daily. Use as instructed Indications: diabetes mellitus 300 strip 3 ??? Accu-Chek Softclix Lancets Misc 1 each by Misc.(Non-Drug; Combo Route) route 3 times daily. Indications: diabetes mellitus 300 each 3 ??? Accu-Chek Guide Glucose Meter Misc 1 each by Misc.(Non-Drug; Combo Route) route daily. Indications: diabetes mellitus 1 each 0 ??? FLUoxetine (PROzac) 20 mg/5 mL (4 mg/mL) Solution daily. ??? lidocaine (Xylocaine) 2 % Solution TAKE 10 ML BY MOUTH EVERY 8 HOURS WITH ANTACID ??? Antacid-Antigas 200-200-20 mg/5 mL Suspension COMBINE 10 MLS WITH LIDOCAINE ORALLY THREE TIMES A DAY ??? clonazePAM (KlonoPIN) 1 mg Tablet Take 1 mg by mouth 3 times daily as needed. ??? Hydrocortisone 0.5 % Lotion Every 12 hours. ??? fluticasone propionate (Flonase) 50 mcg/actuation Lutz, Suspension 1 spray by Each Nare route nightly. Substitute OTC if needed Indications: inflammation of the nose due to an allergy 16 g 1 ??? acetaminophen (Tylenol) 500 mg Tablet Take 2 tablets by mouth every 8 hours as needed for Pain.Substitute OTC if needed 60 tablet 1 ??? vitamin C 500 mg Tablet TAKE ONE TABLET BY MOUTH EVERY DAY ??? cetirizine (ZyrTEC) 10 mg Tablet TAKE ONE TABLET BY MOUTH EVERY DAY ??? fluticasone propionate (Flovent HFA) 110 mcg/actuation HFA Aerosol Inhaler Every 12 hours. ??? ipratropium-albuteroL (Duoneb) 0.5 mg-3 mg(2.5 mg base)/3 mL Solution for Nebulization Every 6 hours. ??? mag/aluminum/sod bicarb/alginc (GAVISCON ORAL) Take by mouth. ??? sucralfate (Carafate) 1 gram Tablet TAKE 1 TABLET BY MOUTH TWICE DAILY ON AN EMPTY STOMACH ??? albuterol 90 mcg/actuation HFA Aerosol Inhaler Inhale 2 puffs into the lungs every 4 hours as needed for Wheezing. Use with spacer ??? calcium carbonate (TUMS) 200 mg calcium (500 mg) Tablet, Chewable Take 1 tablet by mouth as needed. Family History: Family History Problem Relation Age [...] on file Housing Stability: Not on file Review of Systems: 11 point ROS is either negative or per HPI Physical Exam: Last value Range last 8 hrs Temperature Temp: 36.5 ??C (97.7 ??F) Temp: [36.5 ??C (97.7 ??F)] Heart Rate Heart Rate: 91 Heart Rate: [91] Blood Pressure BP: 121/84 BP: (121)/(84) Respiratory Rate Resp: 16 Resp: [16] SpO2 SpO2: 98 % SpO2: [98 %] Intake/Output Summary (Last 24 hours) at 07/23/2022 0244 Last data filed at 07/23/2022 0145 Gross per 24 hour Intake -- Output 350 ml Net -350 ml Wt & BMI By Encounter Date Flowsheet Row Office Visit from 07/09/2022 in Cardiology at [facility] Routine from 07/05/2022 in Obstetrics and Gynecology at [facility] Weight 79.4 kg (175 lb) 1 07/09/2022 1036 77.7 kg (171 lb 6.4 oz) 1 07/05/2022 0936 BMI 30.04 1 07/09/2022 1036 -- General: Pleasant female in NAD Cardiac: RRR, S1/S2 of normal character and amplitude, no m/r/g. PMI Nondisplaced. Estimated RAP 6cm H2O. Respiratory: Adequate air entry throughout. No adventitious sounds Abdominal: Soft and non-tender with no organomegaly. Normal bowel sounds Extremities: No atrophy, no clubbing/cyanosis, trace edema, radial/DP/PT pulses 2+ and symmetric Neurology: Without focal deficit Recent Labs 07/23/22 014 WBC 14.5* HGB 11.5* HCT 35.2* PLATELET 308 Recent Labs 07/23/22 014 NA 136 K 3.7 CL 102 CO2 23 BUN 6* CREATININE 0.84 Recent Labs 07/23/22 014 AST 11 ALT 12 ALKPHOS 132* BILITOT <0.2* Recent Labs 07/23/22 014 CALCIUM 9.4 No results for input(s): INR, PT, PTT in the last 168 hours. Recent Labs 07/23/22144 TROPONINT <0.01 ProBNP Date Value Ref Range Status 07/04/2016 1,228 (H) <=125 pg/mL Final Relevant imaging: ECG 07/23/22: Sinus rhythm, normal ECG ECG 07/11/22: Sinus rhythm, normal ECG Echocardiogram: 03/14/22: Left ventricular systolic and diastolic function are normal. The left ventricular ejection fraction is 69% by Redman's biplane. There are no segmental wall motion abnormalities. The right ventricle is of normal size. Right ventricular systolic function is normal. Unable to estimate RVSP. There is no valve disease. See report for additional findings. Compared with the previous echo performed on 11/04/2021, there is no significant change. Assessment: Aniya Luque is a 37 y.o. 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 She noted chest pain earlier in the evening for which she took nitroglycerine and cardiology was consulted given her high risk history. She presented to [facility] for vaginal bleeding and is approaching her delivery date. She had several instances of chest pains earlier in the day for which cardiology was consulted. She describes an atypical chest sensation that has been ongoing for quite some time, a matter of months. She does occasionally take nitroglycerin with an unreliable response. Her chest symptoms started earlier today and were intermittent, but nitro was taken around 2100 without improvement. Given the chronicity of her symptoms as well as the atypical quality, these pains are likely non-cardiac in nature. She also wonders if this could be worsening GERD as she has had more of this as expected with . Out of anabundance of caution, it is reasonable to obtain a troponin and if this is normal (> 6 hours after chest pain), discharge is reasonable. Her ECG is normal and unchanged from previous. Recommendations: Obtain troponin, if normal (< 14) she can be discharged If troponin > 14, repeat in 1 hour and we can reassess disposition Patient educated on strict return precautions for worsening chest pain Case discussed with Dr. Moreira in the morning. Prashant Mckee MD Cardiovascular Medicine Fellow 07/23/2022 Cardiology Staff Addendum Aniya Luque is a 37 y.o. female whom I discussed today with Rylee Jenkins. I reviewed the pertinent chart, but was not able to see or examine the patient as she had been discharged. She presented due to uterine contractions and bleeding, and Dr. Mckee was called due to chronic chest pain not outside of her usual pattern, and reported to her regular postal delivery officer on 07/09/22. The plan as outlined is reasonable and appropriate. Smoking cessation will be critical given diagnosis of vasospasm and current . Graham Moreira MD, KEITH, FACC, FACP, FASE Cardiovascular Medicine documented in this encounter Plan of Treatment Upcoming Encounters Date Type Department Care Team (Late st Contact Info) Description 09/21/2024 8:15 AM EST Routine Obstetrics [place] [address] Emili Cabrera MD [facility] MATERNAL [place] [address] 09/26/2024 6:00 PM EST Appointment [facility] [place] [phone] 10/16/2024 [facility] [place] [address] Dudley Aguilar MD [facility] DR OBSTETRICS [place] [address] 11/08/2024 10:00 AM EST Hospital Encounter Non-Invasive [place] [phone] Arrived documented as of this encounter Procedures Procedure Name Priority Date/Time Associated Diagnosis Comments HC TROPONIN T STAT 07/23/2022 1:45 AM EDT HEMOGRAM STAT 07/23/2022 1:45 AM EDT DIFFERENTIAL, AUTOMATED STAT 07/23/2022 1:45 AM EDT HC CBC,PLT & AUTO DIFF STAT 07/23/2022 1:45 AM EDT COMPREHENSIVE METABOLIC PANEL STAT 07/23/2022 1:45 AM EDT HC PROTEIN, QUANTITATIVE, URINE STAT 07/23/2022 1:21 AM EDT EKG 12-LEAD STAT 07/23/2022 1:08 AM EDT Subcutaneous defibrillator implanted 11/12/2021 Cardiac arrest Coronary artery vasospasm Chest pain, unspecified type documented in this encounter Results * Troponin (07/23/2022 1:45 AM EDT) Troponin-T <0.01 0.00 - 0.00 ng/mL [facility] Comment: The 99th percentile for Troponin T is less than 0.01 ng/mL, any detectable cTnT concentration using this assay should be considered elevated. According to the third universal definition of myocardial infarction the following criteria with a clinical presentation consistent with acute myocardial ischemia meets the diagnosis for a myocardial infarction (MS). Detection of a rise and/or fall of cTnT, with at least one value greater than the 99th percentile (> or = 0.01) and with at least one of the following ?? Symptoms of ischemia ?? New or presumed new significant DK-pcoaanx-F wave (ST-T) changes or new left bundle branch block (LBBB) ?? Development of pathologic Q waves in the ECG ?? Imaging evidence of new loss of viable myocardium or new regional wall motion abnormality ?? Identification of an intracoronary thrombus by angiography or autopsy Samples for cTnT testing should be obtained serially upon first assessment and again 3 to 6 hours later. If the clinical suspicion is high and previous samples have been negative an additional sample may be indicated. Reference: Third [place] Definition of Myocardial Infarction. Journal of the [place] College [employer] 2012;60:1581-98 Troponin-T, High Sensitivity 12 <=14 ng/L [facility] Comment: This patient's troponin T concentration [...] troponin value can be found in the REPLACED BY [facility] Laboratory Test Catalog Troponin - [facility] Laboratory Test Catalog Reference: Fourth [place] Definition of Myocardial Infarction. Journal of the [place] College [employer]iology 2018;72:4931-8796 Blood 07/23/2022 1:45 AM EDT 07/23/2022 2:08 AM EDT Narrative Resulting Agency Comment Spec In Lab Jewels Gold MD CHEMISTRY ORDERABLES Performing Organization Address City/[facility]/ZIP Co de Phone Number [facility] [place] [address] * (ABNORMAL) Differential, Automated (07/23/2022 1:45 AM EDT) Neutrophil % 61.4 % [facility] Neutrophil Absolute 8.90(H) 1.70 - 6.10 x10(3)/mc L [facility] Lymph % 26.7 % [facility] Lymphocytes Abs 3.9(H) 0.9 - 3.2 x10(3)/ L [facility] Monocyte % 8.0 % [facility] Monocyte Abs 1.2(H) 0.3 - 0.9 x10(3)/ L [facility] Eos % 2.2 % [facility] Eosinophils Abs 0.3 0.0 - 0.4 x10(3)/ L [facility] Basophil % 0.4 % [facility] Baso Absolute 0.1 0.0 - 0.1 x10(3)/ L [facility] Immature Gran % 1.30 % [facility] Comment: Immature granulocytes(IG's)percentage and absolute count will include metamyelocytes, myelocytes, and promyelocytes. Blood smears from CBCs yielding IG's will be scanned manually for concordance. If this scan disagrees with the automated IG or if promyelocytes are noted, a manual differential will be performed. Immature Gran Absolute 0.19(H) 0.00 - 0.04 x10(3)/ L [facility] Blood 07/23/2022 1:45 AM EDT 07/23/2022 2:08 AM EDT Narrative Resulting Agency Comment Spec In Lab Sienna Madrigal MD HEMATOLOGY ORDERABLE S Performing Organization Address City/[facility]/ZIP Co de Phone Number [facility] [place] [address] * (ABNORMAL) Hemogram (07/23/2022 1:45 AM EDT) White Blood Cell 14.5(H) 4.0 - 9.5 x10(3)/mc L [facility] Red Blood Cell 3.88(L) 4.00 - 5.21 x10(6)/mc L [facility] LABORATORY Hemoglobin 11.5(L) 11.7 - 15.5 g/dL [facility] Hematocrit 35.2(L) 35.7 - 45.8 % [facility] Mean Cell Volume 90.7 82.6 - 94.4 fL [facility] Mean Cell Hemoglobin 29.6 27.1 - 32.0 pg [facility] Mean Cell Hemoglobin Concentration 32.7 31.7 - 35.0 g/dL [facility] Platelet 308 145 - 357 x10(3)/mc L [facility] RDW Standard Deviation 56.0(H) 37.0 - 46.0 fL [facility] RDW coefficient of variation 16.7(H) 11.5 - 14.1 % [facility] Mean Platelet Volume 11.2 7.6 - 12.9 fL [facility] NRBC% auto 0.0 % [facility] NRBC Absolute 0.000 0.000 - 0.000 x10(3)/ L [facility] Blood 07/23/2022 1:45 AM EDT 07/23/2022 2:08 AM EDT Narrative Resulting Agency Comment Spec In Lab Sienna Madrigal MD HEMATOLOGY ORDERABLE S [facility] [place] [address] * (ABNORMAL) Comprehensive metabolic panel (non-fasting) (07/23/2022 1:45 AM EDT) Glucose 83 65 - 199 mg/dL [facility] Comment:Diabetes: >=200 mg/d L plus symptoms Blood Urea Nitrogen 6(L) 8 - 18 mg/dL [facility] Creatinine 0.84 0.70 - 1.20 mg/dL [facility] Sodium 136 135 - 145 mmol/L [facility] Potassium 3.7 3.5 - 5.0 mmol/L [facility] Comment: Please note: ??Patients with WBC >100,000 may have falsely elevated Potassium levels. ??For accurate Potassium quantification in these patients send serum separator tube (gold top) for subsequent determinations. ??Contact the Clinical Chemistry Laboratory if there are any questions. Chloride 102 98 - 107 mmol/L [facility] Carbon Dioxide 23 22 - 31 mmol/L [facility] Anion Gap 11 5 - 15 mmol/L [facility] Calcium 9.4 8.5 - 10.5 mg/dL [facility] Protein, Total 6.9 6.1 - 8.0 g/dL [facility] Albumin 4.1 3.2 - 5.2 g/dL [facility] Aspartate Aminotransferase 11 0 - 30 unit/L [facility] Alanine Aminotransferase 12 0 - 30 unit/L [facility] Alkaline Phosphatase 132(H) 35 - 105 unit/L [facility] Bilirubin, Total <0.2(L) 0.2 - 1.3 mg/dL [facility] Est Glomerular Filtration Rate 91 >=60 mL/min/1. 73 m?? [facility] Comment: This patient's estimated [...] and symptoms in addition to eGFR. Blood 07/23/2022 1:45 AM EDT 07/23/2022 2:08 AM EDT Narrative Resulting Agency Comment Spec In Lab Jewels Gold MD CHEMISTRY ORDERABLES Performing Organization Address [facility]/ZIP Co de Phone Number [facility] [place] [address] * Protein/Creatinine Ratio, urine (07/23/2022 1:21 AM EDT) Creatinine, Urine 52 mg/dL [facility] Protein, Urine 10 0 - 12 mg/dL [facility] Protein / Creatinine Ratio, Urine 0.2 ratio [facility] Urine 07/23/2022 1:21 AM EDT 07/23/2022 1:59 AM EDT Narrative Resulting Agency Comment Spec In Lab Jewels Gold MD URINE ORDERABLES Performing Organization Address [facility] Co de Phone Number [facility] [place] [address] * EKG 12 Lead (07/23/2022 1:08 AM EDT) Ventricular rate 76 BPM MUSE SYSTEM Atrial Rate 76 BPM MUSE SYSTEM P-R Interval 138 ms MUSE SYSTEM QRS Duration 84 ms MUSE SYSTEM Q-T Interval 420 ms MUSE SYSTEM QTC Calculated (Bezet) 472 ms MUSE SYSTEM Calculated P [place] 41 degrees MUSE SYSTEM Calculated R [place] 12 degrees MUSE SYSTEM Calculated T [place] 21 degrees MUSE SYSTEM INTERPRETATION Normal sinus rhythm Cannot rule out Anterior infarct , age undetermined Abnormal ECG When compared with ECG of 11-JUL-2022 22:29, R wave progression has changed, possibly ??secondary to ??lead placement I personally reviewed the tracing and edited the fellows interpretation Confirmed by fellow MD Marco A, Darron ([id number]) on 07/23/2022 9:48:57 PM Confirmed by MD Louie Danette ([id number]) on 07/24/2022 6:55:45 AM MUSE SYSTEM 07/23/2022 1:08 AM EDT 07/24/2022 6:55 AM EDT Jewels Gold MD ECG ORDERABLES MUSE SYSTEM documented in this encounter Visit Diagnoses Diagnosis Subcutaneous defibrillator implanted 11/12/2021 Cardiac arrest Coronary artery vasospasm Prinzmetal angina Chest pain, unspecified type documented in this encounter Administered Medications Inactive Administered Medications - up to 3 most recent administrations Medication Order MAR Action Action Date Dose Rate Site acetaminophen (Tylenol) tablet 650 mg 650 mg, Oral, EVERY 6 HOURS PRN, Starting on Fri07/23/22 at 0142, Until Fri07/23/22 at 0656, Pain, Maximum dose of acetaminophen is 4000 mg from all sources in 24 hours. When ordered for pain, acetaminophen should be given even when other ordered pain medications are indicated. , Routine documented in this encounter Active and Recently Administered Medications Times are shown in EDT. PRN Medication Order 07/21/2022 07/22/2022 07/23/2022 acetaminophen (Tylenol) tablet 650 mg 650 mg, Oral, EVERY 6 HOURS PRN, Starting on Fri07/23/22 at 0142, Until Fri07/23/22 at 0656, Pain, Maximum dose of acetaminophen is 4000 mg from all sources in 24 hours. When ordered for pain, acetaminophen should be given even when other ordered pain medications are indicated. , Routine documented in this encounter Care Teams Folder Hand Relationship Specialty Start Date End Date None None PCP - General 05/30/22 09/28/23 documented as of this encounter
--- OUTSIDE RECORDS SUMMARY | 2024-09-20 11:05 | XMS_ITS | Encounter Summary ---
Author Organization [facility] Address [facility] [place] [address] Care Team Providers Care Television Repair Teacher Name Role Phone None Primary Care Provider Unavailabl e Encounter Details Date Type Department Care Team (Late st Contact Info) Description 07/23/2022 Telephone Obstetrics [place] [phone] Alla Weinberg RN Social History Tobacco Use Types Packs/Day [...] encounter Miscellaneous Notes * Telephone Encounter - Alla Weinberg RN - 07/24/2022 12:34 PM EDT TC to Aniya A Ene to check in and let her know that there is no way to move her induction up to today. She understands to contact the [facility] by noon tomorrow if she does not hear from anyone by then. * Telephone Encounter - Alla Weinberg RN - 07/23/2022 4:05 PM EDT Returned call to Aniya Brian Luque GA: [id number] Sign. Hx: Cardiac arrest/Subcutaneous implanted defibrillator, hypertension, anxiety disorder Evaluated in [facility] earlier this morning for chest discomfort Reason for call today: Aniya is calling today stating that she can't wait any longer for her induction. She states she has been in pain for weeks, having difficulty walking due to leg pain Noticed scant vaginal bleeding when wiping after using the bathroom x1 earlier today - explained likely due to cervical exam when she was at the [facility] earlier today. States that she has no appetite, and has only eaten a little today Has not had any water to drink today, has only had silvia faby Denies any changes since she was [facility] Has had a headache off and on for a while now. usually relieved with Tylenol, but often comes back. Is having feelings that something bad is going to happen - feels that her anxiety level is very high. Afraid she might go into labor and not make it to the hospital in time to deliver. my abdomen turns into a tight ball reports this is intermittent. States she is just ready for this to be over with. Aniya states she does not know how to time contractions. Reviewed with Aniya to count from the beginning of one contraction to the beginning of another and this is how far apart they are, and if they are at least 5 minutes apart for an hour she should call. Summary of Call: Aniya is requesting an earlier induction date than , 07/23, due to her discomfort and anxiety. Plan: Reviewed with Aniya that she is very close to her induction date and it is unlikely that the induction will be moved earlier than 37 weeks. Encouraged her by reinforcing how well she has done to make it to this point, due to all the stressors of this , and that she will be able to make it the two more days until her induction date. Empathized with Aniya that her has been stressful with so many trips to the ER and BP, but that she overall has handled it all very well. Reinforced that many of the complaints she has now - such as leg pain, general discomfort and anxiousness are common for many woman as they near the end of their . Encouraged Aniya to increase her water intake over the next couple of days, as this will help herfeel better (since she is not drinking any water) and get her hydrated for her hospital admission when she will need IVs. Aniya states she will try to drink more water between now and then. Also encouraged to try to eat small snacks. Discussed her anxiety about not making it to the hospital in time. Reinforced/reassured that she isnot in active labor at this time and if labor starts and comes on rapidly to the point that she doesn't think she is going to make it to the hospital in time, she can call 911. I let Aniya know that I would review her request to move up her Induction date with the covering M provider and would likely not get back to her until tomorrow morning, given the late hour today.Aniya understands that the date will likely not be changed. Note routed to Dr. Oliveira for review. documented in this encounter Plan of Treatment Upcoming Encounters Date Type Department Care Team (Late st Contact Info) Description 09/21/2024 8:15 AM EST Routine Obstetrics [place] [address] Emili Cabrera MD [facility] [place] [address] 09/26/2024 6:00 PM EST Appointment [facility] [place] [address] 10/16/2024 [place] [phone] Dudley Aguilar MD [facility] DR OBSTETRICS [place] [address] 11/08/2024 10:00 AM EST Hospital Encounter Non-[place] [address] Arrived documented as of this encounter Visit Diagnoses Not on filedocumented in this encounter Care Teams Television Repair Teacher Relationship Specialty Start Date End Date None None PCP - General 05/30/22 09/28/23 documented as of this encounter
--- OUTSIDE RECORDS SUMMARY | 2024-09-20 11:05 | XMS_ITS | Encounter Summary ---
Author Organization [facility] Address [facility] [place] [address] Care Team Providers Care Agriculture Consultant Name Role Phone None Primary Care Provider Unavailabl e Encounter Details Date Type Department Care Team (Late st Contact Info) Description 07/19/2022 Orders Only Obstetrics [place] [phone] Kaila Castellanos MD [facility] DR OBSTETRICS [place] [address] Social History Tobacco Use Types Packs/Day Years [...] AM EST Routine Obstetrics [place] [phone] Emili Cabrera MD [facility] [place] [address] 09/26/2024 6:00 PM EST Appointment [facility] [place] [address] 10/16/2024 [place] [phone] Dudley Aguilar MD [facility] DR OBSTETRICS [place] [address] 11/08/2024 10:00 AM EST Hospital Encounter Non-Invasive [place] [phone] Arrived documented as of this encounter Visit Diagnoses Not on filedocumented in this encounter Care Teams Agriculture Consultant Relationship Specialty Start Date End Date None None PCP - General 05/30/22 09/28/23 documented as of this encounter
--- OUTSIDE RECORDS SUMMARY | 2024-09-20 11:05 | XMS_ITS | Encounter Summary ---
Author Organization [facility] Address [facility] [place] [address] Care Team Providers Care Load Planner Name Role Phone None Primary Care Provider Unavailabl e Encounter Details Date Type Department Care Team (Latest Contact Info) Description 07/31/2022 10:01 AM EDT - 07/31/2022 1:57 PM EDT [place] [address] Floyd Wang MD [facility] [place] [address] Chest pain, unspecified type Discharge Disposition: Home [...] Sign Reading Time Taken Comments Blood Pressure 156/85 07/31/2022 12:24 PM EDT Pulse 75 07/31/2022 10:25 AM EDT Temperature 36.6 ??C (97.9 ??F) 07/31/2022 10:10 AM E DT Respiratory Rate - - Oxygen Saturation 98% 07/31/2022 10:10 AM EDT Inhaled Oxygen Concentration - - Weight - - Height - - Body Mass Index - - documented in this encounter Discharge Instructions * Attachments The following attachments cannot be sent through Care Everywhere. * Breast Care: Non- (Vincentian) * Breast Engorgement (Vincentian) * Mastitis (Vincentian) * (Vincentian) * Care (Vincentian) documented in this encounter Medications at Time of Discharge Medication Sig Dispensed Refills Start Date End Date acetaminophen (Tylenol) 325 mg Tablet Take 3 tablets by mouth every 6 hours as needed for Pain. 30 tablet 1 07/29/2022 polyethylene glycoL (Miralax) 17 gram Powder in Packet Take 17 g by mouth daily. 14 each 07/29/2022 fluticasone propionate (Flonase) 50 mcg/actuation [place], SuspensionIndications :allergic rhinitis 1 spray by Each [...] as directed for 3 days. 06/04/2022 03/02/2024 cephALEXin (Keflex) 500 mg Capsule Take 1 capsule by mouth 4 times daily for 10 days. 40 capsule 07/31/2022 08/10/2022 magnesium oxide (Mag-Ox) 400 mg (241.3 mg magnesium) Tablet Take 1 tablet by mouth daily. 30 tablet 12 07/31/2022 08/12/2023 docusate sodium (Colace) 100 mg Capsule Take [...] as of this encounter Progress Notes * Faiza Woodward RN - 07/31/2022 1:14 PM EDT Patient discharged to home from triage. Discharged paperwork reviewed with patient and all questions answered. Patient advised to call with any concerns s/s reviewed. * Zora Kidd MD - 07/31/2022 12:59 PM EDT BP Triage Note ID: Aniya Luque is a 37 y.o. who is PPD#5 s/p uncomplicated at 37w1d presenting from clinic for r/o preeclampsia s/i on cHTN and infection including endometritis. PMH notable for cHTN managed on amlodipine 2.5mg AM/5mg PM, history of cardiac arrest secondary to coronary vasospasm in setting of Covid-19 infection 09/2021 now with ICD in place and history of PNA this . Patient discharged home on PPD#3 with plan for BP check this week. HPI: Aniya presents alone today. She was sent from clinic after being seen by nursing for BP check (139/92) after endorsing several complaints including GEORGE, vision changes, breast pain, pelvic pain, increased vaginal bleeding and elevated temperature. Patient reports she had been having breast engorgement with tenderness as well as pelvic cramping/low back pain prior to discharge from the BP two days ago. Bilateral breasts have gotten more sore, R>L both with palpable lumps at upper outer quadrants. Denies overlying skin changes or abnormal nipple discharge. She is exclusively bottle feeding, not pumping or hand expressing. She has been using Tylenol, motrin and a belly band for breast discomfort and compression. Her lochia has waxed/waned since delivery depending on level of activity, reports a quarter-sized clot yesterday with dark red/brown discharge. Goes through 1-3 shyanne-pads daily, not saturating pads hourly. Her pelvic crampingfeels like contractions, currently 7/10 in severity - similar to when she was discharged. She felt warm this morning and had home oral temp of 100.1F. Some generalized body aches and congestion. Noknown sick contacts, partner and baby at home are asymptomatic. She is not vaccinated against Covid-19 or the Flu. She also reports occipital throbbing headache that has worsened over the past 2 days, initially improved by Tylenol now less so. GEORGE is associated with photophobia and black squiggles in vision, worse if she suddenly moves head to side otherwise non-positional. Uncomplicated epidural analgesia during delivery. Denies chills, CP, palpitations, SOB, orthopnea, lightheadedness/dizziness, known sick contacts or recent travel, RUQ/epigasrtic pain, increased swelling, dysuria, diarrhea or leg pain. Baby boy is doing well at home. She is tolerating a regular diet without N/V, ambulating and voiding without issue. Plans to use POPs for contraception, has not yet picked up prescription. Patient confirms she has been taking her home amlodipine as prescribed. Last dose this morning around 8am. Has a cuff at home but has not been checking BP. OB History: OB History 5 Para 4 Term 4 AB 1 Living 4 SAB 1 IAB Ectopic Multiple 0 Live Births 4 # Outc Date GA Lbr Eric/2nd Wgt Sex Del Anes PTL Lv 1 SAB 2001 16w0d 2 Term 05/2003 40w4d 3.289 kg (7 lb 4 oz) M Vag-Spont Living 3 Term 04/2009 39w0d 2.977 kg (6 lb 9 oz) Vag-Spont Living 4 Term 2013 Vag-Spont 5 Term 07/2022 37w1d 00:57 / 00:13 2.775 kg (6 lb 1.9 oz) F Vag-Spont EPI No Living Objective: Patient Vitals for the past 24 hrs: Temp Heart Rate From SP02 Pulse BP SpO2 O2 Device 07/31/22 1010 36.6 ??C (97.9 ??F) 92 bpm -- -- 98 % RA 07/31/22 1025 -- -- 75 141/96 -- -- 07/31/22 1224 -- -- -- 156/85 -- -- Gen: AAO, NAD CV: RRR, no murmurs, rubs or gallops Pulm: CTAB, no adventitious sounds Breast: small <2-3cm mobile tender lumps of bilateral breasts at 10-11 o'clock, likely clogged ducts, no overlying skin changes Abd: soft, fundus firm -4cm below the umbilicus, diffuse mild tenderness to palpation, no rebound or guarding Ext: trace pedal edema bilaterally Pelvic: deferred, per nursing lochia on pad wnl on arrival Results for orders placed or performed during the hospital encounter of 07/31/22 Aspartate Aminotransferase Result Value Ref Range AST 16 0 - 30 unit/L Creatinine Result Value Ref Range Creatinine 0.89 0.70 - 1.20 mg/dL Estimated GFR 85 >=60 mL/min/1.73 m?? Hemogram Result Value Ref Range WBC 10.2 (H) 4.0 - 9.5 x10(3)/mcL RBC 4.20 4.00 - 5.21 x10(6)/mcL Hemoglobin 12.6 11.7 - 15.5 g/dL Hematocrit 37.1 35.7 - 45.8 % MCV 88.3 82.6 - 94.4 fL MCH 30.0 27.1 - 32.0 pg MCHC 34.0 31.7 - 35.0 g/dL Platelets 309 145 - 357 x10(3)/mcL RDWSD 50.4 (H) 37.0 - 46.0 fL RDWCV 15.5 (H) 11.5 - 14.1 % MPV 10.2 7.6 - 12.9 fL nRBC % Auto 0.0 % nRBC Abs Auto 0.000 0.000 - 0.000 x10(3)/mcL Differential, Automated Result Value Ref Range Neutrophils % 52.5 % Neutr Abs (ANC) 5.36 1.70 - 6.10 x10(3)/mcL Lymphocytes % 29.8 % Lymphocytes Abs 3.0 0.9 - 3.2 x10(3)/mcL Monocytes % 7.4 % Monocyte Abs 0.8 0.3 - 0.9 x10(3)/mcL Eosinophils % 8.6 % Eosinophils Abs 0.9 (H) 0.0 - 0.4 x10(3)/mcL Basophils % 0.4 % Basophils Abs 0.0 0.0 - 0.1 x10(3)/mcL Immature Gran % 1.30 % Jena Gran Abs 0.13 (H) 0.00 - 0.04 x10(3)/mcL Scan, Peripheral Blood Result Value Ref Range Plat Estimate Normal RBC Morphology Normal EKG 12 Lead Result Value Ref Range Ventricular rate 70 BPM Atrial Rate 70 BPM P-R Interval 130 ms QRS Duration 92 ms Q-T Interval 394 ms QTC Calculated (Bezet) 425 ms Calculated P Raven 46 degrees Calculated R Raven 32 degrees Calculated T Raven 51 degrees INTERPRETATION Normal sinus rhythm Minimal voltage criteria for LVH, may be normal variant ( [place] product ) Anterior infarct (cited on or before 23-JUL-2022) Abnormal ECG When compared with ECG of 23-JUL-2022 01:08, Nonspecific T wave abnormality no longer evident in Inferior leads QT has shortened Assessment/Plan: PPD#5 s/p following IOL for cHTN and maternal history of cardiac arrest. PIH labs drawn on admission and wnl. BPs moderately elevated, though non-severe with subjectively worsening GEORGE minimally responsive to Tylenol. Difficult to ascertain whether this represents patient's cHTN with persistent sx from discharge vs preeclampsia. I do not believe patient's GEORGE is severe enough to rule in for severe features. Plan to increase home amlodipine to 5mg BID, repeat BP check in clinic on PPD#7 (08/02). Secretaries messaged to arrange. Patient will check BP at home BID in interim and call if >160/110. Encouraged hydration, rest as needed, environment modification (ie dimming lights), tylenol, ibuprofen for GEORGE which sounds migrainous in nature. Rx for mag oxide 400mg daily sent to see if this helps. May also try OTC benadryl. Breast exam with likely bilateral clogged ducts, possible early mastitis in setting of elevated T at home. WBC 10.2. Will Rx 10d course Keflex (PCN allergic). Encouraged continued tylenol, ibuprofen,compression, massage, manual expression to relieve engorgement and warm compresses prn. Pelvic cramping likely secondary to uterine involution. Lochia appears wnl. Low suspicion for RPOC or endometritis based on exam. Delivery note reviewed - uncomplicated spontaneous delivery of the placenta. Consider pelvic US if sx worsening. Resp panel pending, will follow up results. Patient discharged home in stable condition. Advised to call with new or worsening sx to which she voiced understanding. Discussed with Dr. Wang, attending contract administration coordinator. Zora Kidd MD PGY4 07/31/2022 Associated attestation - Floyd Wang MD - 08/01/2022 10:00 AM EDT Chart reviewed, discussed with team and agree with resident note. MD Jaden * Faiza Woodward, RN - 07/31/2022 10:04 AM EDT 1000- Patient presents to BP triage from OB Clinic. Pt reports temp 100.1 at home this am, nausea, spots in vision, (initial vision changes started yesterday), mild chest pain and SOB. Reports general malaise, similar to the flu, chills and headache unrelieved by tylenol/ibuprofen. Denies any known exposure to flu/covid. Vaginal discharge unchanged over the last 2 weeks, denies any new foul odor.Fundal exam unremarkable, vaginal bleeding varies, but minimal, brown/red in color, no odor. SpO2 98% on RA. HR 91. Temp 36.6 Oral. Last dose of tylenol and ibuprofen around 0445 this am. 1025- STAT EKG ordered and EKG paged. 1028- BP 141/96 1035- Labs obtained. EKG NSR. documented in this encounter Plan of Treatment Upcoming Encounters Date Type Department Care Team (Late st Contact Info) Description 09/21/2024 8:15 AM EST Routine Obstetrics [place] [address] Emili Cabrera MD [facility] [place] [address] 09/26/2024 6:00 PM EST Appointment [facility] [place] [address] 10/16/2024 [place] [address] Dudley Aguilar MD [facility] OBSTETRICS [place] [address] 11/08/2024 10:00 AM EST Hospital Encounter Non-In[place] [address] Arrived documented as of this encounter Procedures Procedure Name Priority Date/Time Associated Diagnosis Comments HC RESPIRATORY VIRUS PANEL BY PCR STAT 07/31/2022 12:00 PM EDT EKG 12-LEAD STAT 07/31/2022 10:38 AM EDT Chest pain, unspecified type SCAN, PERIPHERAL BLOOD Routine 10:33 AM EDT HEMOGRAM Routine 07/31/2022 10:33 AM EDT DIFFERENTIAL, AUTOMATED Routine 07/31/20 10:33 AM EDT HC CREATININE Routine 07/31/2022 10:33 AM EDT HC CBC,PLT & AUTO DIFF Routine 10:33 AM EDT ASPARTATE AMINOTRANSFERASE Routine 07/31/2022 10:33 AM EDT documented in this encounter Results * Respiratory Panel PCR (07/31/2022 12:00 PM EDT) Respiratory Panel Source PHYSICAL ANTHROPOLOGIST Swab [facility] Respiratory Panel PCR Negative Negative [facility] Comment: Respiratory Panels are performed on the Hylete, using multiplexed PCR nucleic acid detection. ??Negative results do not preclude respiratory infection and should not be used as the sole basis for diagnosis, treatment or other management decisions. Adenovirus Not Detected Not Detected [facility] Coronavirus HKU1 Not Detected Not Detected [facility] Coronavirus NL63 Not Detected Not Detected [facility] Coronavirus 229E Not Detected Not Detected [facility] Coronavirus OC43 Not Detected Not Detected [facility] SARS-CoV-2 Not Detected Not Detected [facility] Comment: Testing for SARS-CoV-2 (Severe acute respiratory syndrome coronavirus 2) to aid in the diagnosis of COVID-19 is performed using the BioFire Respiratory Panel 2.1 (Boardvote) as authorized by the FDA issued Emergency Use Authorization (EUA). This panel also tests for multiple other viral and bacterial pathogens. This assay is intended for In-vitro Diagnostic (IVD) use with nasopharyngeal swabs in viral transport media. The assay is performed based on the instructions for use and additional guidance provided by the FDA. Testing is performed in laboratories within the [facility], each of which is certified under the Clinical Laboratory Improvement Amendments of 1988 (CLIA), 42 U.S.C. section 263a, to perform high-complexity tests. Assay performance has been verified according to clinical laboratory regulatory requirements. The test result for SARS-CoV-2 provided above should be interpreted in combination with the clinical observation, patient history and epidemiological information. For testing of asymptomatic individuals, assay performance characteristics and clinical utility have not been evaluated. ??A result of Not Detected indicates that the viral RNA target is not present but does not preclude SARS-CoV-2 infection. False negative results may occur if a specimen is improperly collected, transported or handled; if amplification inhibitors are present; or if inadequate numbers of viral particles are present in the specimen. When a diagnostic test is negative, the possibility of a false negative result should be considered in the context of a patient's recent exposures and the presence of clinical signs and symptoms consistent with COVID-19. A result of Detected suggests a current or recent infection. Positive and negative predictive values for this test are dependent on disease prevalence. A result of Invalid indicates the inability to conclusively determine the presence or absence of SARS-CoV-2 RNA in the sample which can be due to a variety of factors. ??Collection of a new sample for repeat testing is recommended in the case of an invalid result. CDC COVID-19 criteria for testing on human specimens and clinical management guidance information are available at the CDC Coronavirus Disease 2019 (COVID-19) webpage under Information for Healthcare Professionals (https://www.cdc.gov/coronavirus/2019-ncov/hcp/index.html). Additional information about this and other EUA tests can be found in provider and patient fact sheets at the following FDA website: https://www.fda.gov/medical-devices/cxkdtiwgfwj-yhxulry-6937-nbaau-58-wuzsvjkuj- use-a ggasoyzrzcomu-tutbgpx-kgpnbaz/enmer-kdnmrsahgis-glmy Human Metapneumovirus Not Detected Not Detected [facility] Human Rhinovirus/Enterov irus Not Detected Not Detected [facility] Influenza A Not Detected Not Detected [facility] Influenza B Not Detected Not Detected [facility] Parainfluenza 1 Not Detected Not Detected [facility] Parainfluenza 2 Not Detected Not Detected [facility] Parainfluenza 3 Not Detected Not Detected [facility] Parainfluenza 4 Not Detected Not Detected [facility] Respiratory Syncytial Virus Not Detected Not Detected [facility] Chlamydophila pneumoniae Not Detected Not Detected [facility] Mycoplasma pneumoniae Not Detected Not Detected [facility] Nasopharyngeal Swab 07/31/20 12:00 PM EDT 07/31/2022 12:31 PM EDT Narrative Resulting Agency Comment Spec In Lab Floyd Wang MD MICROBIOLOGY - GENER AL ORDERABLES Performing Organization Address City/State/[facility] Co de Phone Number [facility] [place] [address] * EKG 12 Lead (07/31/2022 10:38 AM EDT) Ventricular rate 70 BPM MUSE SYSTEM Atrial Rate 70 BPM MUSE SYSTEM P-R Interval 130 ms MUSE SYSTEM QRS Duration 92 ms MUSE SYSTEM Q-T Interval 394 ms MUSE SYSTEM QTC Calculated (Bezet) 425 ms MUSE SYSTEM Calculated P Raven 46 degrees MUSE SYSTEM Calculated R Raven 32 degrees MUSE SYSTEM Calculated T Raven 51 degrees MUSE SYSTEM INTERPRETATION Normal sinus rhythm Poor precordial R wave progression, ??Cannot rule out Anterior infarct , age undetermined vs lead placement Abnormal ECG When compared with ECG of 23-JUL-2022 01:08, R wave progression has once again changed, possibly due to lead placement Confirmed by fellow MD Unger Daniel ([id number]) on 07/31/2022 11:06:32 AM Confirmed by Valorie Ruiz ([id number]) on 07/31/2022 2:47:47 PM MUSE SYSTEM 07/31/2022 10:3 8 AM EDT 07/31/2022 2:47 PM EDT Floyd Wang MD ECG ORDERABLES MUSE SYSTEM * Scan, Peripheral Blood (07/31/2022 10:33 AM EDT) Plat estimate Normal [facility] RBC Morphology Normal [facility] Blood 07/31/2022 10:3 3 AM EDT 07/31/2022 10:42 AM EDT Narrative Resulting Agency Comment Spec In Lab Zora Kidd MD HEMATOLOGY ORDERABLE S Performing Organization Address City/[facility]/ZIP Co de Phone Number [facility] [place] [address] * (ABNORMAL) Differential, Automated (07/31/2022 10:33 AM EDT) Neutrophil % 52.5 % [facility] Neutrophil Absolute 5.36 1.70 - 6.10 x10(3)/mc L [facility] Lymph % 29.8 % [facility] Lymphocytes Abs 3.0 0.9 - 3.2 x10(3)/mc L [facility] Monocyte % 7.4 % [facility] Monocyte Abs 0.8 0.3 - 0.9 x10(3)/mc L [facility] Eos % 8.6 % [facility] Eosinophils Abs 0.9(H) 0.0 - 0.4 x10(3)/mc L [facility] Basophil % 0.4 % [facility] Baso Absolute 0.0 0.0 - 0.1 x10(3)/mc L [facility] Immature Gran % 1.30 % [facility] Comment: Immature granulocytes(IG's)percentage and absolute count will include metamyelocytes, myelocytes, and promyelocytes. Blood smears from CBCs yielding IG's will be scanned manually for concordance. If this scan disagrees with the automated IG or if promyelocytes are noted, a manual differential will be performed. Immature Gran Absolute 0.13(H) 0.00 - 0.04 x10(3)/mc L [facility] Blood 07/31/2022 10:3 3 AM EDT 07/31/2022 10:42 AM EDT Narrative Resulting Agency Comment Spec In Lab Zora Kidd MD HEMATOLOGY ORDERABLE S [facility] [place] [address] * (ABNORMAL) Hemogram (07/31/2022 10:33 AM EDT) White Blood Cell 10.2(H) 4.0 - 9.5 x10(3)/mc L [facility] Red Blood Cell 4.20 4.00 - 5.21 x10(6)/mc L [facility] Hemoglobin 12.6 11.7 - 15.5 g/dL [facility] Hematocrit 37.1 35.7 - 45.8 % [facility] Mean Cell Volume 88.3 82.6 - 94.4 fL [facility] Mean Cell Hemoglobin 30.0 27.1 - 32.0 pg [facility] Mean Cell Hemoglobin Concentration 34.0 31.7 - 35.0 g/dL [facility] Platelet 309 145 - 357 x10(3)/mc L [facility] RDW Standard Deviation 50.4(H) 37.0 - 46.0 fL [facility] RDW coefficient of variation 15.5(H) 11.5 - 14.1 % [facility] Mean Platelet Volume 10.2 7.6 - 12.9 fL [facility] NRBC% auto 0.0 % [facility] NRBC Absolute 0.000 0.000 - 0.000 x10(3)/mc L [facility] Blood 07/31/2022 10:3 3 AM EDT 07/31/2022 10:42 AM EDT Narrative Resulting Agency Comment Spec In Lab Zora Kidd MD HEMATOLOGY ORDERABLE S Performing Organization Address City/[facility]/ZIP Co de Phone Number [facility] [place] [address] * Creatinine (07/31/2022 10:33 AM EDT) Creatinine 0.89 0.70 - 1.20 mg/dL [facility] Est Glomerular Filtration Rate 85 >=60 mL/min/1. 73 m?? [facility] Comment: This patient's estimated GFR [...] and symptoms in addition to eGFR. Blood 07/31/2022 10:3 3 AM EDT 07/31/2022 10:42 AM EDT Narrative Resulting Agency Comment Spec In Lab Floyd Wang MD CHEMISTRY ORDERABLES Performing Organization Address City/[facility]/ZIP Co de Phone Number [facility] [place] [address] * Aspartate Aminotransferase (07/31/2022 10:33 AM EDT) Aspartate Aminotransferase 16 0 - 30 unit/L [facility] Blood 07/31/2022 10:3 3 AM EDT 07/31/2022 10:42 AM EDT Narrative Resulting Agency Comment Spec In Lab Floyd Wang MD CHEMISTRY ORDERABLES [facility] [place] [address] documented in this encounter Visit Diagnoses Diagnosis Chest pain, unspecified type documented in this encounter Administered Medications Inactive Administered Medications - up to 3 most recent administrations Medication Order MAR Action Action Date Dose Rate Site acetaminophen (Tylenol) tablet 1,000 mg 1,000 mg, Oral, ONCE, 1 dose, On Fri07/31/22 at 1230, Maximum dose of acetaminophen is 4000 mg from all sources in 24 hours. When ordered for pain, acetaminophen should be given even when other ordered pain medications are indicated. , Routine Given 07/31/2022 11:42 AM EDT 1,000 mg documented in this encounter Active and Recently Administered Medications Times are shown in EDT. Scheduled Medication Order 07/29/2022 07/30/2022 07/31/2022 acetaminophen (Tylenol) tablet 1,000 mg (COMPLETED) 1,000 mg, Oral, ONCE, 1 dose, On Fri07/31/22 at 1230, Maximum dose of acetaminophen is 4000 mg from all sources in 24 hours. When ordered for pain, acetaminophen should be given even when other ordered pain medications are indicated. , Routine 1142 (Given - Provid er: Faiza Woodward RN) documented in this encounter Additional Health Concerns Infection Onset Date Last Indicated Resolved Time Rule Out Respiratory 07/31/2022 07/31/2022 022 11:50 AM EDT Rule Out COVID-19 07/31/2022 07/31/2022 07/31/2022 1:35 PM EDT documented as of this encounter Care Teams Load Planner Relationship Specialty Start Date End Date None None PCP - General 05/30/22 09/28/23 documented as of this encounter
--- OUTSIDE RECORDS SUMMARY | 2024-09-20 11:05 | XMS_ITS | Encounter Summary ---
Author Organization [facility] Address [facility] [place] [address] Care Team Providers Care Golf Ball Marker Name Role Phone None Primary Care Provider Unavailabl e Encounter Details Date Type Department Care Team (Late st Contact Info) Description 07/17/2022 Telephone Obstetrics [place] [phone] Johan Rangel MD [facility] DR OBSTETRICS & [place] [address] Social History Tobacco Use Types Packs/Day Years [...] encounter Miscellaneous Notes * Telephone Encounter - Johan Rangel MD - 07/17/2022 6:44 AM EDT Aniya Torres Ene is a 37 y.o. at 35w6d who calls with pain all over. Patient reports onset of back pain and cramping since last night that has become more intense. She also reports feeling clammy and has nausea. She reports the last time she felt this way was when shehad her last baby. Denies LOF, VB. Endorses FM. AP: - advised labor check at [facility] - patient will be here in an hour or less Johan Rangel MD PGY-3 07/17/22 documented in this encounter Plan of Treatment Upcoming Encounters Date Type Department Care Team (Late st Contact Info) Description 09/21/2024 8:15 AM EST Routine Obstetrics [place] [address] Emili Cabrera MD [facility] [place] [address] 09/26/2024 6:[address] [facility] [place] [address] 10/16/2024 Hospital [place] [address] Dudley Aguilar MD [facility] OBSTET[place]ICS [place] [address] 11/08/2024 10:00 AM EST Hospital Encounter Non-Invasive [place] [address] Arrived documented as of this encounter Visit Diagnoses Not on filedocumented in this encounter Care Teams Golf Ball Marker Relationship Specialty Start Date End Date None None PCP - General 05/30/22 09/28/23 documented as of this encounter
--- OUTSIDE RECORDS SUMMARY | 2024-09-20 11:05 | XMS_ITS | Encounter Summary ---
Author Organization [facility] Address [facility] [place] [address] Care Team Providers Care Acoustic Engineer Name Role Phone None Primary Care Provider Unavailabl e Encounter Details Date Type Department Care Team (Late st Contact Info) Description 07/31/2022 Telephone Obstetrics [place] [phone] Sienna Madrigal MD [facility] DR OBSTETRICS & [place] [address] Social History Tobacco Use Types Packs/Day Years [...] encounter Miscellaneous Notes * Telephone Encounter - Sienna Madrigal MD - 07/31/2022 7:36 PM EDT Aniya Luque is a 37 y.o. who is PPD#5 s/p at 37w1d. She was evaluated in triage today for a number of concerns including headache, suspected mastitis, respiratory panel (negative), and pelvic pain. Work-up overall benign; per Aniya and per Dr. Kidd' note, next step for ongoing pelvic pain would be ultrasound evaluation. Aniya does report ongoing and worsening pelvic pain at this time, and would like to proceed with ultrasound. Bleeding is wnl. Order placed now, message sent to clinic. Sienna Madrigal MD PGY3 07/31/22 documented in this encounter Plan of Treatment Upcoming Encounters Date Type Department Care Team (Late st Contact Info) Description 09/21/2024 8:15 AM EST Routine Obstetrics [place] [address] Emili Cabrera MD [facility] [address] [place]NAL [place] [address] 09/26/2024 6:00 PM EST Appointment [facility] [place] [address] 10/16/2024 [place] [address] Dudley Aguilar MD [facility] DR OBSTETRICS [place] [address] 11/08/2024 10:00 AM EST Hospital Encounter Non-[place] [address] Arrived documented as of this encounter Visit Diagnoses Diagnosis Acute pelvic pain, female Unspecified symptom associated with female genital organs documented in this encounter Additional Health Concerns Infection Onset Date Last Indicated Resolved Time Rule Out Respiratory 07/31/2022 07/31/2022 022 11:50 AM EDT Rule Out COVID-19 07/31/2022 07/31/2022 07/31/2022 1:35 PM EDT documented as of this encounter Care Teams Acoustic Engineer Relationship Specialty Start Date End Date None None PCP - General 05/30/22 09/28/23 documented as of this encounter
--- OUTSIDE RECORDS SUMMARY | 2024-09-20 11:05 | XMS_ITS | Encounter Summary ---
Author Organization [facility] Address [facility] [place] [address] Care Team Providers Care Metal Hardener Name Role Phone None Primary Care Provider Unavailabl e Encounter Details Date Type Department Care Team (Late st Contact Info) Description 08/02/2022 Home Care Visit [facility] Maternal Child Health [address] [place] [phone] Carolina Russell, RN NOT HOME NOT FOUND VISIT Social [...] Home Health - Carolina Russell RN - 08/02/2022 9:55 AM EDT texted patient 08/01 to confirm visit for 08/02 @ 10:00 am no response. Went to the address for a 10:00 am visit, and found that the address is a condo complex with 21 units. Patient had not given the [facility] a unit number. This nurse called the patient and left a voicemail stating, This is Carolina from the Visiting Nurses I am here at [address], [place] and there ar 21 units. you did not advise the [facility] of a unit number please call me back as soon as possible with the unit number. also left the direct phone number. told her I would wait 15 minutes. no response documented in this encounter Plan of Treatment Upcoming Encounters Date Type Department Care Team (Late st Contact Info) Description 09/21/2024 8:15 AM EST Routine Obstetrics [place] [address] Emili Cabrera MD [facility] [place] [address] 09/26/2024 6:00 PM EST [facility] [place] [address] 10/16/2024 [place] [address] Dudley Aguilar MD [facility] DR OBSTETRICS [place] [address] 11/08/2024 10:00 AM EST Hospital Encounter Non-Invasive [place] [address] Arrived documented as of this encounter Visit Diagnoses Not on filedocumented in this encounter Care Teams Metal Hardener Relationship Specialty Start Date End Date None None PCP - General 05/30/22 09/28/23 documented as of this encounter
--- OUTSIDE RECORDS SUMMARY | 2024-09-20 11:05 | XMS_ITS | Encounter Summary ---
Author Organization [facility] Address [facility] [place] [address] Care Team Providers Care Irrigating Pump Operator Name Role Phone None Primary Care Provider Unavailabl e Encounter Details Date Type Department Care Team (Late st Contact Info) Description 07/11/2022 Telephone Obstetrics [place] [phone] Willow Clifton MD [facility] DR OBSTETRICS & [place] [address] Social History Tobacco Use Types Packs/Day Years [...] encounter Miscellaneous Notes * Telephone Encounter - Willow Clifton MD - 07/11/2022 8:36 PM EDT Increased vaginal and low back pain as well as contraction like pain every 5-7 minutes in the last hour. Having headaches. Eyes feel funny with headaches, feels vision is blurry when she watches TV. Naseous. Pain radiating down legs. Has been going on for three nights. Currently taking Amlodipine2.5 mg in the AM, and 5 mg in the evening. Baby still moving, less than normal. Unsure about leaking of fluid, may just be discharge. No vaginal bleeding. Does have a history of cardiac arrest, per chart review, secondary to vasospasm on calcium channel blockers/nitrates, no myocardial damage, LVEF 68%. Has an ICD which has not fired, though does have some chest pain and shortness of breath now. Advised patient to present to care as soon as possible. Will come to [facility] for evaluation of rule out labor as well as rule out preeclampsia. Patient discussed with Drs. Johan Rangel and Leo Lockhart. iWllow Clifton MD PROGRAM SCHEDULE CLERK, PGY-1 07/11/2022 8:47 PM documented in this encounter Plan of Treatment Upcoming Encounters Date Type Department Care Team (Late st Contact Info) Description 09/21/2024 8:15 AM EST Routine Obstetrics [place] [address] Emili Cabrera MD [facility] MATERNAL [place] [address] 09/26/2024 6:00 PM EST [facility] [place] [phone] 10/16/2024 [place] [address] Dudley Aguilar MD [facility] OBSTETRICS [place] [address] 11/08/2024 10:00 AM EST Hospital Encounter Non-Invasive [place] [phone] Arrived documented as of this encounter Visit Diagnoses Not on filedocumented in this encounter Care Teams Irrigating Pump Operator Relationship Specialty Start Date End Date None None PCP - General 05/30/22 09/28/23 documented as of this encounter
--- OUTSIDE RECORDS SUMMARY | 2024-09-20 11:06 | XMS_ITS | Encounter Summary ---
Author Organization [facility] Address [facility] [place] [address] Care Team Providers Care Lacquer Dipping Machine Operator Name Role Phone None Primary Care Provider Unavailabl e Encounter Details Date Type Department Care Team (Late st Contact Info) Description 06/12/2022 Orders Only Obstetrics [place] [phone] Romana Torres MD [facility] DR OBSTETRICS [place] [address] Elevated glucose tolerance test (Primary Dx) Social History Tobacco Use Types Packs/Day Years [...] AM EST Routine Obstetrics [place] [phone] Emili Cabrera MD [facility] MATERNAL AND MEDICINE [place], [place] [phone] 09/26/2024 6:00 PM EST Appointment [facility] [place] [address] 10/16/2024 [place] [address] Dudley Aguilar MD [facility] DR OBSTETRICS [place] [address] 11/08/2024 10:00 AM EST Hospital Encounter Non[place] [address] Arrived documented as of this encounter Visit Diagnoses Diagnosis Elevated glucose tolerance test- Primary Impaired glucose tolerance test documented in this encounter Care Teams Lacquer Dipping Machine Operator Relationship Specialty Start Date End Date None None PCP - General 05/30/22 09/28/23 documented as of this encounter
--- OUTSIDE RECORDS SUMMARY | 2024-09-20 11:06 | XMS_ITS | Encounter Summary ---
Author Organization [facility] Address [facility] [place] [address] Care Team Providers Care Case Making Machine Operator Name Role Phone None Primary Care Provider Unavailabl e Encounter Details Date Type Department Care Team (Latest Contact Info) Description 06/27/2022 9:40 AM EDT - 06/27/2022 1:45 PM EDT Hospital [place] [address] Romana Ballard MD [facility] DR OBSTETRICS [place] [address] Discharge Disposition: Home Social History Tobacco Use [...] Sign Reading Time Taken Comments Blood Pressure 116/76 06/27/2022 10:10 AM EDT Pulse 88 06/27/2022 10:10 AM EDT Temperature 36.9 ??C (98.4 ??F) 06/27/2022 10:10 AM E DT Respiratory Rate 18 06/27/2022 10:10 AM EDT Oxygen Saturation 99% 06/27/2022 10:10 AM EDT Inhaled Oxygen Concentration - - Weight - - Height - - Body Mass Index - - documented in this encounter Discharge Instructions * Discharge Instructions* Debbie Eli, RN - 06/27/2022 1:38 [place] [address] [facility] Aniya Luque 06/27/22 1:37 PM Following your visit to [facility] Triage Call your doctor or underground distribution engineer for: Seizure (call 911) Chest pain Shortness of breath Headache which isn't relieved with Tylenol Headache with visual changes Abdominal pain Swelling to hands and face A temperature at or above 100.4F Nausea or vomiting Gestation - under 37 weeks Call your doctor or underground distribution engineer if: You experience any menstrual like cramping [...] a vaginal exam in your doctor's or underground distribution engineer's office you should not bleed as [...] over 37 weeks Call your doctor or underground distribution engineer if: You are having painful contractions/abdominal cramps [...] a vaginal exam in your doctor's or underground distribution engineer's office you should not bleed as [...] dehydration. Keep your regularly scheduled doctor or underground distribution engineer appointment. Vaccination If you received the Measles, Mumps, and Rubella (MMR) vaccine, varicella vaccine, or Hepatitis A vaccine during your hospitalization make sure to discuss this with your OB provider or your PCP at your next visit. You may need a second dose of the vaccine to receive effective vaccine protection. Your [facility] Provider can be reached during office hours at [facility] AFTER OFFICE HOURS: Call and ask for the rn psychiatric or underground distribution engineer paint line production supervisor documented in this encounter Medications at Time of Discharge Medication Sig Dispensed Refills Start Date End Date fluticasone propionate (Flonase) 50 mcg/actuation [place], SuspensionIndications :allergic rhinitis 1 spray by Each [...] as directed for 3 days. 06/04/2022 03/02/2024 cefPODOXime (Vantin) 200 mg Tablet Take 1 tablet by mouth 2 times daily. 10 tablet 06/20/2022 07/25/2022 azithromycin (ZITHROMAX) 500 mg Tablet Take 1 tablet by mouth daily. 2 tablet 06/20/2022 07/11/2022 famotidine (Pepcid) 40 mg Tablet Take 1 [...] ORALLY THREE TIMES A DAY 04/25/2022 10/31/2022 amLODIPine (Norvasc) 2.5 mg Tablet Take 1 tablet by mouth 2 times daily. 180 tablet 1 05/14/2022 06/28/2022 clonazePAM (KlonoPIN) 1 mg Tablet Take 1 mg by mouth 3 times daily as needed. 12/23/2021 03/02/2024 Hydrocortisone 0.5 % Lotion Every 12 hours. 12/06/2021 07/25/2022 diclofenac (Voltaren) 1 % Gel APPLY A QUARTER SIZED AMOUNT TO PAINFUL AREA ON CHEST TWO TIMES A DAY FOR 14 DAYS 12/08/2021 07/11/2022 acetaminophen (Tylenol) 500 mg Tablet Take 2 tablets by mouth every 8 hours as needed for Pain. Substitute OTC if needed 60 tablet 1 11/16/2021 07/29/2022 nitroGLYcerin (Nitrostat) 0.4 mg Tablet, Sublingual Place 1 tablet under the tongue every 5 minutes as needed for Chest pain. 30 tablet 11/14/2021 07/09/2022 vitamin C 500 mg Tablet TAKE ONE TABLET BY MOUTH EVERY DAY 08/24/2021 08/12/2023 mag/aluminum/sod bicarb/alginc (GAVISCON ORAL) Take by mouth. 07/25/2022 sucralfate (Carafate) 1 gram Tablet TAKE 1 TABLET BY MOUTH TWICE DAILY ON AN EMPTY STOMACH 10/11/2020 08/12/2023 documented as of this encounter Progress Notes * Debbie Eli RN - 06/27/2022 1:45 PM EDT Patient presents to triage with c/o period like cramping and pressure in lower abdomen. States it feels pretty constant but is at times stronger than others. Denies lof, or bleeding. Endorses FM. Hemogram sent as ordered. IVF bolus 500mL given. EFM was reactive and reassuring. Reviewed with Taye. No Cx seen on TOCO monitor. Patient still feeling unwell and with lower abdominal cramping. Cervical exam was unchanged after several hours of monitoring. Plan to d/c patient and she will keep her pre-scheduled appointments tomorrow. Reviewed discharge instructions and s/s for when to call. Patient verbalized understanding and denies other questions at this time. * Sophy White CNM - 06/27/2022 1:29 PM EDT Patient Name: Aniya Luque Patient Age: 37 y.o. Birthdate: 1985 Admit date: 06/27/2022 Attending Physician: Romana Ballard MD CC: Triage for cramping S: Aniya reports she doesn't feel great. Her cramping is about the same. Consents to SVE. O: BP 116/76 (BP Location (NBP): Left arm, Patient Position: Lying) Pulse 88 Temp 36.9 ??C (98.4 ??F) (Oral) Resp 18 LMP 11/08/2021 SpO2 99% FHR- 140, moderate variability, + accels, no decels No contractions SVE: 1cm/long/closed CBC Lab Results Component Value Date WBC 13.4 (H) 06/27/2022 Hemoglobin 10.0 (L) 06/27/2022 Hematocrit 30.5 (L) 06/27/2022 Platelets 300 06/27/2022 A/P: Aniya is a 37 yo at 33w0d here for PTL symptoms. - No contractions on monitor, No cervical change in >2hrs - Plan to discharge home. Reviewed PTL s/sx and warning s/sx. She has an ultrasound tomorrow and appt with Dr. Trores which she plans to keep. - Reactive NST - complicated by: c/b cHTN, asthma, cigarette smoking, chest pain hx with??11/04-??admission for cardiac arrest thought to be due to severe coronary vasospasm (see??05/14/2022??Cardiology ??and Anesthesiology notes), left sided ICD (defibrillator) placed 10/2021, s/p reassuring cardiac echo on 04/26/2022, ??boderline personality disorder, PTSD depression and anxiety. Sophy White CNM * Sophy White CNM - 06/27/2022 10:45 AM EDT Patient Name: Aniya Luque Patient Age: 37 y.o. Birthdate: 1985 Admit date: 06/27/2022 Attending Physician: Romana Ballard MD CC: PTL contraction pain and pressure S: Aniya reports she began to feel period like contractions over night and when she finally got out of bed this am she came right here as this pain is different for her. She has a lot of vaginal and rectal pressure. She also notes since she was here 7 days ago she continues to have watery diarrhea 2-3x/day. Denies fevers. Denies leaking vaginal fluid, denies vaginal bleeding. Denies chest pain and SOB today. O: BP 116/76 (BP Location (NBP): Left arm, Patient Position: Lying) Pulse 88 Temp 36.9 ??C (98.4 ??F) (Oral) LMP 11/08/2021 SVE: 1cm/long/high A/P: Aniya is a 37 yo at 33w0d here for PTL symptoms. - No contractions on monitor, plan to recheck in 2 hours. Give IV fluid bolus. Send hemogram. - Reactive NST - complicated by: c/b cHTN, asthma, cigarette smoking, chest pain hx with??11/04-??admission for cardiac arrest thought to be due to severe coronary vasospasm (see??05/14/2022??Cardiology ??and Anesthesiology notes), left sided ICD (defibrillator) placed 10/2021, s/p reassuring cardiac echo on 04/26/2022, ??boderline personality disorder, PTSD depression and anxiety. Sophy White CNM documented in this encounter Plan of Treatment Upcoming Encounters Date Type Department Care Team (Late st Contact Info) Description 09/21/2024 8:15 AM EST Routine Obstetrics [place] [address] Emili Cabrera MD [facility] MATERNAL [place] [address] 09/26/2024 6:00 PM EST Appointment [facility] [place] [address] 10/16/2024 Hospital [place] [phone] Dudley Aguilar MD [facility] DR OBSTETRICS [place] [address] 11/08/2024 10:00 AM EST Hospital Encounter Non-Invasive [place] [address] Arrived documented as of this encounter Procedures Procedure Name Priority Date/Time Associated Diagnosis Comments HC HEMOGRAM Routine 06/27/2022 10:45 AM EDT documented in this encounter Results * (ABNORMAL) Hemogram (06/27/2022 10:45 AM EDT) White Blood Cell 13.4(H) 4.0 - 9.5 x10(3)/mc L [facility] Red Blood Cell 3.36(L) 4.00 - 5.21 x10(6)/mc L [facility] Hemoglobin 10.0(L) 11.7 - 15.5 g/dL [facility] Hematocrit 30.5(L) 35.7 - 45.8 % [facility] Mean Cell Volume 90.8 82.6 - 94.4 fL [facility] Mean Cell Hemoglobin 29.8 27.1 - 32.0 pg [facility] Mean Cell Hemoglobin Concentration 32.8 31.7 - 35.0 g/dL [facility] Platelet 300 145 - 357 x10(3)/mc L [facility] RDW Standard Deviation 57.8(H) 37.0 - 46.0 fL [facility] RDW coefficient of variation 17.3(H) 11.5 - 14.1 % [facility] Mean Platelet Volume 11.2 7.6 - 12.9 fL [facility] NRBC% auto 0.1 % [facility] NRBC Absolute 0.020(H) 0.000 - 0.000 x10(3)/mc L [facility] Blood 06/27/2022 10:4 5 AM EDT 06/27/2022 11:13 AM EDT Narrative Resulting Agency Comment Spec In Lab Sophy White CNM HEMATOLOGY ORDER [place] [facility] [place] [address] documented in this encounter Visit Diagnoses Not on filedocumented in this encounter Administered Medications Inactive Administered Medications - up to 3 most recent administrations Medication Order MAR Action Action Date Dose Rate Site lactated Ringers 500 mL IV bolus at 500 mL/hr, Intravenous, ONCE, 1 dose, On Jenelle 06/27/22 at 1100 New Bag 06/27/2022 10:57 AM EDT 500 mL/hr documented in this encounter Active and Recently Administered Medications Times are shown in EDT. Scheduled Medication Order 06/25/2022 06/26/2022 06/27/2022 lactated Ringers 500 mL IV bolus (COMPLETED) at 500 mL/hr, Intravenous, ONCE, 1 dose, On Jenelle 06/27/22 at 1100 1057 (New Bag - Prov ider: Debbie Eli, RN)1157 (Stopped - Provider: Debbie Eli RN) documented in this encounter Care Teams Case Making Machine Operator Relationship Specialty Start Date End Date None None PCP - General 05/30/22 09/28/23 documented as of this encounter
--- OUTSIDE RECORDS SUMMARY | 2024-09-20 11:06 | XMS_ITS | Encounter Summary ---
Author Organization [facility] Address [facility] [place] [address] Care Team Providers Care Marble Cutter Operator Name Role Phone None Primary Care Provider Unavailabl e Encounter Details Date Type Department Care Team (Late st Contact Info) Description 06/13/2022 Telephone Obstetrics [place] [phone] Alla Weinberg RN Social History Tobacco Use [...] Telephone Encounter - Alla Weinberg RN - 06/13/2022 1:47 PM EDT Returned call to Aniya Luque regarding her glucometer and supplies While on phone Aniya states that she is currently taking a mylanta and lidocaine mixture for GERD(last dose at 1pm), usually her symptoms are resolved in a half hour. But not working, is feeling regurg, feeling slightly nauseous. Has been able to eat today. Denies chest pain, difficulty breathing or any pain in neck/jaw or either arm Is getting ready to go to the pharmacy to picking table worker her glucometer and supplies. Will call if symptoms worsen documented in this encounter Plan of Treatment Upcoming Encounters Date Type Department Care Team (Late st Contact Info) Description 09/21/2024 8:15 AM EST Routine Obstetrics [place] [address] Emili Cabrera MD [facility] MATERNAL [place] [address] 09/26/2024 6:00 PM EST Appointment [facility] [place] [address] 10/16/2024 [place] [address] Dudley Aguilar MD [facility] DR OBSTETRICS [place] [address] 11/08/2024 10:00 AM EST Hospital Encounter Non-Invasive [place] [address] Arrived documented as of this encounter Visit Diagnoses Not on filedocumented in this encounter Care Teams Marble Cutter Operator Relationship Specialty Start Date End Date None None PCP - General 05/30/22 09/28/23 documented as of this encounter
--- OUTSIDE RECORDS SUMMARY | 2024-09-20 11:06 | XMS_ITS | Encounter Summary ---
Author Organization Formerly [facility] Address [facility] [place] [address] Care Team Providers Care Plastics Design Engineer Name Role Phone None Primary Care Provider Unavailabl e Encounter Details Date Type Department Care Team (Late st Contact Info) Description 07/03/2022 Telephone Obstetrics [place] [phone] Alla Weinberg RN Social History Tobacco Use [...] Telephone Encounter - Alla Weinberg RN - 07/03/2022 10:33 AM EDT Returned call to Aniya Luque GA: 33w6d Subcutaneous defibrillator implanted 11/12/2021; Recent PNA, HTN, High Risk/MFM patient Patient was seen in ER at [facility] yesterday for back pain and had lab work up to rule out a blood clot. Aniya also called and spoke with OC Resident on BP last evening, expressing anxiety regarding care at [facility]. Reason for call today: Aniya states that she is still very concerned about what happened at [facility] and is confused about why the transfer to was cancelled yesterday evening. She was initially told that she was going to be transferred by ambulance to [facility], but after runningmore labwork and consulting with the distribution accounting clerk MFM provider, the ER physician told her that she was okay to go home. She said when she spoke with Dr. Rangel last evening, she was hoping to get more information on howthe decision was made for the change in the plan - she was told that there is no way to know what conversation transpired between Dr. Oliveira and the ER doctor as the notes from [facility] are not available. She was hoping for a call from Dr. Oliveira today for reassurance about the situation. Denies any changes in physical condition since seen yesterday in the ER. She wants to make sure that she should not be seen before her appointment on Friday. [facility] contacted with a request to send visit notes/lab results from ER encounter yesterday. Note routed to Dr. Oliveira for review. documented in this encounter Plan of Treatment Upcoming Encounters Date Type Department Care Team (Late st Contact Info) Description 09/21/2024 8:15 AM EST Routine Obstetrics [place] [address] Emili Cabrera MD [facility] [place] [address] 09/26/2024 6:00 PM EST Appointment [facility] [place] [address] 10/16/2024 Hospital [place] [address] Dudley Aguilar MD [facility] [place] [address] 11/08/2024 10:00 AM EST Hospital Encounter Non-Invasive [place] [address] Arrived documented as of this encounter Visit Diagnoses Not on filedocumented in this encounter Care Teams Plastics Design Engineer Relationship Specialty Start Date End Date None None PCP - General 05/30/22 09/28/23 documented as of this encounter
--- OUTSIDE RECORDS SUMMARY | 2024-09-20 11:06 | XMS_ITS | Encounter Summary ---
Author Organization [facility] Address [facility] [place] [address] Care Team Providers Care Talent Solutions Manager Name Role Phone None Primary Care Provider Unavailabl e Encounter Details Date Type Department Care Team (Late st Contact Info) Description 05/31/2022 Telephone [place] [phone] Faiza Poe, RN Social History Tobacco Use Types Packs/Day [...] encounter Miscellaneous Notes * Telephone Encounter - Faiza Poe RN - 05/31/2022 4:17 PM EDT Aniya Luque is a 36 y.o. female who is currently 29w, 1d gestation. She is calling in today with questions regarding her lab orders. She states that these were supposed to be sent to [facility]. I let her know that I sent the hemogram and GDS orders over to [facility] electronically while we were on the phone. She plans to call them tomorrow to see if they went through. Informed patient to call back on Friday if they didn't receive these orders. Patient verbalizes understanding and agrees to this plan. documented in this encounter Plan of Treatment Upcoming Encounters Date Type Department Care Team (Late st Contact Info) Description 09/21/2024 8:15 AM EST Routine [place] [address] Emili Cabrera MD [facility] [place] [address] 09/26/2024 6:00 PM EST Appointment [facility] [place] [address] 10/16/2024 Hospital [place] [address] Dudley Aguilar MD [facility] DR OBSTET[place]ICS [place] [address] 11/08/2024 10:00 AM EST Hospital Encounter [place] [address] Arrived documented as of this encounter Visit Diagnoses Not on filedocumented in this encounter Care Teams Talent Solutions Manager Relationship Specialty Start Date End Date None None PCP - General 05/30/22 09/28/23 documented as of this encounter
--- OUTSIDE RECORDS SUMMARY | 2024-09-20 11:06 | XMS_ITS | Encounter Summary ---
Author Organization [facility] Address [facility] [place] [address] Care Team Providers Care Fourdrinier Machine Tender Name Role Phone None Primary Care Provider Unavailabl e Reason for Visit * Reason Comments Routine Visit Encounter Details Date Type Department Care Team (Late st Contact Info) Description 06/28/2022 9:00 AM EDT Routine Obstetrics [place] [address] Romana Torres MD [facility] DR OBSTETRICS [place] [address] GA: 33w1d Social History Tobacco Use Types Packs/Day Years [...] Sign Reading Time Taken Comments Blood Pressure 116/68 06/28/2022 8:44 AM EDT Pulse - - Temperature - - Respiratory Rate - - Oxygen Saturation - - Inhaled Oxygen Concentration - - Weight 77.7 kg (171 lb 4.8 oz) 06/28/2022 8:44 A M EDT Height - - Body Mass Index 29.4 05/14/2022 10:23 AM EDT documented in this encounter Progress Notes * Romana Torres MD - 06/28/2022 9:00 AM EDT Lots of lower abdominal and back pain. Vaginal and vulvar pain Having loose stools. Chest is prickly Some shortness of breath. Has a cardiology appt today. Poor sleep due to pain. Lots of mild contractions. No blood. Some decreased movement. Was seen on the BP yesterday with reactive NST and no evidence for labor. Has some concern about silent cervical dilation Patient Vitals for the past 24 hrs: BP 06/28/22 0844 116/68 3rd Trimester Summary Single intrauterine with a gestational age of 33w 1d based on LMP (11/08/21) Composite age based on the current ultrasound alone is 32w 2d. Estimated weight corresponds to the 62th percentile for 33w 1d. Current growth parameters are consistent with prior dating indicating normal growth. Amniotic fluid volume is normal Anatomical survey is limited due to the late gestational age. Imp/plan: obstetrically is doing well. It seems her anxiety is increasing. I recommended weekly visits for cervical exams. She is seeing the cardiologists today. RTC 1 week ERB documented in this encounter Plan of Treatment Upcoming Encounters Date Type Department Care Team (Late st Contact Info) Description 09/21/2024 8:15 AM EST Routine Obstetrics [place] [address] Emili Cabrera MD [facility] [place] [address] 09/26/2024 6:00 PM EST Appointment [facility] [place] [address] 10/16/2024 Hospital [place] [address] Dudley Aguilar MD [facility] DR OBSTETRICS [place] [address] 11/08/2024 10:00 AM EST Hospital Encounter Non-Invasive Cardiology [place] [address] Arrived documented as of this encounter Visit Diagnoses Diagnosis Supervision of high risk in third trimester Unspecified high-risk documented in this encounter Care Teams Fourdrinier Machine Tender Relationship Specialty Start Date End Date None None PCP - General 05/30/22 09/28/23 documented as of this encounter
--- OUTSIDE RECORDS SUMMARY | 2024-09-20 11:06 | XMS_ITS | Encounter Summary ---
Author Organization [facility] Address [facility] [place] [address] Care Team Providers Care Body Worker Name Role Phone None Primary Care Provider Unavailabl e Reason for Referral * Diagnostic Test (Routine) - Closed Specialty Diagnoses / Procedures Referred By Contac t Referred To Contact Diagnoses Right leg pain Procedures Duplex for DVT, Leg, Unilat Romana Torres MD [facility] [address] OBST[place] [address] [facility] V[facility] [place] [address] [place] [address] Referral ID Status Reason Start Date Expiration Date V isits Requested Visits Authorized [id number] Closed Specialty Service Requested 06/12/2022 06/12/2023 1 1 Encounter Details Date Type Department Care Team (Late st Contact Info) Description 06/12/2022 8:15 AM EDT Routine Obstetrics [place] [address] Romana Torres MD [facility] [place] [address] GA: 30w6d Social History Tobacco Use Types Packs/Day Years [...] Sign Reading Time Taken Comments Blood Pressure 124/78 06/12/2022 8:25 AM EDT Pulse - - Temperature - - Respiratory Rate - - Oxygen Saturation - - Inhaled Oxygen Concentration - - Weight 76.5 kg (168 lb 11.2 oz) 06/12/2022 8:25 AM EDT Height - - Body Mass Index 28.96 05/14/2022 10:23 AM EDT documented in this encounter Progress Notes * Romana Torres MD - 06/12/2022 8:15 AM EDT Has started iron infusions at [facility] Let me know about lots of stress at home. At present the FOB is not living with her. Feels like pins and needles over body and some rightleg pain She is unable to do the one hour GCT Patient Vitals for the past 24 hrs: BP 06/12/22 0825 124/78 Tired and sad appearing FH 29 140 Uncertain presentation POCT glucose 107 (fasting) She feels like she has good support at home. Has a therapist she is seeing every other week who hassuggested Prozac. I encouraged her strongly to start taking it given high risk for PP depression. She will consider She is still unable to to GTT and agreed to do home FSBS. Lots of her family members have diabetes.I encouraged her to use the machine I prescribed Dupplex of right leg I put her in for an IOL at 37 weeks and reviewed the handout. RTC 2 weeks documented in this encounter Plan of Treatment Upcoming Encounters Date Type Department Care Team (Late st Contact Info) Description 09/21/2024 8:15 AM EST Routine Obstetrics [place] [address] Emili Cabrera MD [facility] [place] [address] 09/26/2024 6:00 PM EST Appointment [facility] [place] [phone] 10/16/2024 Hospital Encounter [place] [address] Dudley Aguilar MD [facility] [address] [place]ST[place] [address] 11/08/2024 10:00 AM EST Hospital Encounter Non[place] [address] Arrived documented as of this encounter Procedures Procedure Name Priority Date/Time Associated Diagnosis Comments POCT GLUCOSE Routine 06/12/2022 8:52 AM EDT documented in this encounter Results * US OB Follow Up (06/28/2022 8:19 AM EDT) Anatomical Region Laterality Modality Pelvis, Abdomen Ultrasound 06/28/2022 7:58 AM EDT Impressions 06/28/2022 8:33 AM EDT 3rd Trimester Summary Single intrauterine with a gestational age of 33w 1d based on LMP ??(11/08/21) Composite age based on the current ultrasound [...] who have questions, please contact the health customer care voice consultant that requested your imaging first. ?Romana Torres, Worksite Wellness Practitioner Electronically Signed Final Report ?? 06/28/2022 08:32 am Narrative 06/28/2022 8:33 AM EDT OBSTETRICS REPORT ?(Signed Final 06/28/2022 08:32 am) PATIENT INFO: ID #: ? [id number] ?: ??[birth year] (37 yrs)(F) Name: ? JOSE JUAN LUQUE ? Visit Date: 06/28/2022 07:58 am PERFORMED BY: Performed By: ? Madalyn Curtis RDMS Attending: ?Brian LOUISE, Romana Banks Referred By: ?ROMANA TORRES Location: ? [facility] SERVICE(S) PROVIDED: UOBFOL - Efw - Growth ??- [place] - [id number] INDICATIONS: 33 weeks gestation of ?Z3A.33 size less dates VITAL SIGNS: Weight (lb): 168.0 Height: ?5'4 ? BMI: ? 28.83 EVALUATION: Num Of Fetuses: ? 1 Heart Rate(bpm): ??153 Cardiac Activity: ? Observed, normal rhythm Presentation: ? Cephalic Placenta: ? Fundal P. Cord Insertion: ?Not well seen Amniotic Fluid ALPHONSO FV: ?Normal ALPHONSO Sum(cm) ? Largest Pocket(cm) 12.7 ?4.8 RUQ(cm) ? RLQ(cm) ? LUQ(cm) ?LLQ(cm) 2.3 ? 1.0 ? 4.6 ?4.8 --------- BIOMETRY: --------- BPD: ?77.4 ??mm ? G.Age: ?? 31w 0d ? 3.4 ??% OFD: ? 104.1 ??mm HC: ?292.6 ??mm ? G.Age: ?? 32w 2d ? 4.6 ??% AC: ?300.4 ??mm ? G.Age: ?? 34w 0d ?76 ??% FL: ? 61.0 ??mm ? G.Age: ?? 31w 5d ? 9 ??% HUM: ?54.0 ??mm ? G.Age: ?? 31w 3d ?24 ??% CI: ?74.4 ??% ? 70 - 86 FL/HC: ? 20.8 ??% ? 19.9 - 21.5 HC/AC: ? 0.97 ?0.96 - 1.11 FL/BPD: ?78.8 ??% ? 71 - 87 FL/AC: ? 20.3 ??% ? Est. FW: ?2071 ??gm ?4 lb 9 oz ?62 ??% OB HISTORY: : ?1 GESTATIONAL AGE: LMP: ? 33w 1d ?Date: ??11/08/21 ? NAZIA: ?? 08/15/22 U/S Today: ? 32w 2d ?NAZIA: ?? 08/21/22 Best: ?33w 1d ?? Det. By: ??LMP ??(11/08/21) ?NAZIA: ?? 08/15/22 -------- ANATOMY: -------- Cranium: ? Visualized Cavum: ? Visualized Ventricles: ?Not well seen due to position Choroid Plexus: ?Not well seen due to position Cerebellum: ?Not well seen due to position Posterior Fossa: ? Not well seen due to position Nuchal Fold: ? Not evaluated at this gestational age Face: ?Limited views Heart: ? 4-chamber view appears normal Aortic Arch: ? Visualized Ductal Arch: ? Visualized Diaphragm: ? Visualized Stomach: ? Visualized Abdomen: ? Within Normal Limits Abdominal Wall: ?Not seen due to late gestational age Cord Vessels: ?3-vessels- WNL Kidneys: ? Visualized Bladder: ? Visualized Spine: ? Limited views Upper Extremities: ? Limited views Lower Extremities: ? Limited views CERVIX UTERUS ADNEXA: Right Ovary Not visualized Left Ovary Not visualized Procedure Note Romana Torres MD - 06/28/2022 OBSTETRICS REPORT (Signed Final 06/28/2022 08:32 am) PATIENT INFO: ID #: [id number] : [birth year] (37 yrs)(F) Name: JOSE JUAN LUQUE Visit Date: 06/28/2022 07:58 am PERFORMED BY: Performed By: Madalyn Curtis RDMS Attending: Romana Torres MD Referred By: ROMANA TORRES Location: [facility] SERVICE(S) PROVIDED: UOBFOL - Efw - Growth - [facility] - [id number] INDICATIONS: 33 weeks gestation of Z3A.33 size less dates VITAL SIGNS: Weight (lb): 168.0 Height: 5'4 BMI: 28.83 EVALUATION: Num Of Fetuses: 1 Heart Rate(bpm): 153 Cardiac Activity: Observed, normal rhythm Presentation: Cephalic Placenta: Fundal P. Cord Insertion: Not well seen Amniotic Fluid ALPHONSO FV: Normal ALPHONSO Sum(cm) Largest Pocket(cm) 12.7 4.8 RUQ(cm) RLQ(cm) LUQ(cm) LLQ(cm) 2.3 1.0 4.6 4.8 --------- BIOMETRY: --------- BPD: 77.4 mm G.Age: 31w 0d 3.4 % OFD: 104.1 mm HC: 292.6 mm G.Age: 32w 2d 4.6 % AC: 300.4 mm G.Age: 34w 0d 76 % FL: 61.0 mm G.Age: 31w 5d 9 % HUM: 54.0 mm G.Age: 31w 3d 24 % CI: 74.4 % 70 - 86 FL/HC: 20.8 % 19.9 - 21.5 HC/AC: 0.97 0.96 - 1.11 FL/BPD: 78.8 % 71 - 87 FL/AC: 20.3 % 20 - 24 Est. FW: 2072 gm 4 lb 9 oz 62 % OB HISTORY: : 1 GESTATIONAL AGE: LMP: 33w 1d Date: 11/08/21 NAZIA: 08/15/22 U/S Today: 32w 2d NAZIA: 08/21/22 Best: 33w 1d Det. By: LMP (11/08/21) NAZIA: 08/15/22 -------- ANATOMY: -------- Cranium: Visualized Cavum: Visualized Ventricles: Not well seen due to position Choroid Plexus: Not well seen due to position Cerebellum: Not well seen due to position Posterior Fossa: Not well seen due to position Nuchal Fold: Not evaluated at this gestational age Face: Limited views Heart: 4-chamber view appears normal Aortic Arch: Visualized Ductal Arch: Visualized Diaphragm: Visualized Stomach: Visualized Abdomen: Within Normal Limits Abdominal Wall: Not seen due to late gestational age Cord Vessels: 3-vessels- WNL Kidneys: Visualized Bladder: Visualized Spine: Limited views [...] who have questions, please contact the health customer care voice consultant that requested your imaging first. Romana Torres, Worksite Wellness Practitioner Electronically Signed Final Report 06/28/2022 08:32 am Romana Torres MD IMG US OB ORDERABLES * Duplex for DVT, Leg, Unilat (06/12/2022 9:39 AM EDT) VB Text Report Department: Vascular Surgery Lab Patient: [id number] (JOSE JUAN LUQUE) CPT: [id number] Referring Physician: ROMANA TORRES ?? Indications: RT calf pain, 30 weeks , ? DVT Findings: RIGHT: Patent common femoral vein and popliteal vein with spontaneous, respirophasic Doppler waveforms that respond normally to augmentation maneuvers. The common femoral vein, saphenofemoral junction, femoral vein through the thigh and popliteal vein are fully compressible. Patent posterior tibial veins throughout the calf and peroneal veins in the mid calf with no evidence of thrombus. Peroneal veins in the proximal and distal calf are patent but were not adequately visualized to exclude non-occlusive thrombus. Interpretation: RIGHT: ??No evidence of lower extremity deep venous thrombosis. Comparison: ??No previous study in our vascular lab database for comparison. Electronically Signed by: BRIONNA MADRID MD on 2022-06-14 07:18:30 AM VASCUBASE VB Text Report End of Report VASCUBASE 06/12/2022 9:39 AM EDT Romana Torres MD VASCULAR ORDERABLES Performing Organization Address [facility] Co de Phone Number [email or web address] * POCT Glucose (06/12/2022 8:52 AM EDT) Glucose, POC 107 65 - 199 mg/dL [facility] Comment: Supplemental ranges: <140 mg/dL before meals <180 mg/dL all other times of the day Blood 06/12/2022 8:52 AM EDT 06/12/2022 8:52 AM EDT Romana Torres MD POINT OF CARE TEST O RDERABLES [facility] [place] [address] documented in this encounter Visit Diagnoses Diagnosis Right leg pain Pain in limb Size of fetus inconsistent with dates in third trimester Size of fetus inconsistent with dates in third trimester documented in this encounter Care Teams Body Worker Relationship Specialty Start Date End Date None None PCP - General 05/30/22 09/28/23 documented as of this encounter
--- OUTSIDE RECORDS SUMMARY | 2024-09-20 11:06 | XMS_ITS | Encounter Summary ---
Author Organization [facility] Address [facility] [place] [address] Care Team Providers Care Certified Low Vision Therapist Name Role Phone None Primary Care Provider Unavailabl e Encounter Details Date Type Department Care Team (Late st Contact Info) Description 07/02/2022 Interpretation Only [address] [phone] Danica Barriso MD [address] [place] [address] Social History Tobacco Use Types Packs/Day Years [...] AM EST Routine Obstetrics [place] [address] Emili Cabrera MD [facility] [place] [address] 09/26/2024 6:00 PM EST Appointment [facility] [place] [phone] 10/16/2024 [place] [address] Dudley Aguilar MD [facility] [address] [place] [address] 11/08/2024 10:00 AM EST Hospital Encounter Non-[place] [address] Arrived documented as of this encounter Procedures Procedure Name Priority Date/Time Associated Diagnosis Comments XR CHEST ONE VIEW STAT 07/02/2022 5:3 8 PM EDT documented in this encounter Results * XR Chest One View (07/02/2022 5:38 PM EDT) PT CLASS E RAD ADMITDTTM RAD PT RAD INFO [id number]^C HANDER^SUNEE R RAD EXAM DESC XCXR1^XR CHEST 1 VIEW^RIS DH RAD Anatomical Region Laterality Modality Chest N/A Radiographic Ewa ging Impressions 07/02/2022 5:44 PM EDT No acute cardiopulmonary process. Thank you for letting us participate in the care of this patient. ??If you are a health care provider and have any questions regarding this report, please contact the number below. ??For patients who have questions please contact the health rental boats caretaker that requested your imaging first. ? Electronically signed by: Jennifer Bassett MD, [facility] ([phone]), at 07/02/2022 5:44 PM Narrative 07/02/2022 5:44 PM EDT EXAMINATION: XR CHEST 1 VIEW CLINICAL HISTORY: cough TECHNIQUE: AP chest COMPARISON: Chest x-ray, June 20, 2022 FINDINGS: A left single lead AICD/pacemaker has leads in unchanged position, oriented vertically in the retrosternal region. Lungs are clear and without focal consolidation. The cardiomediastinal silhouette and pulmonary vasculature are within normal limits. No pleural effusion or pneumothorax. No acute osseous findings. Procedure Note Jennifer Bassett MD - 07/02/2022 EXAMINATION: XR CHEST 1 VIEW CLINICAL HISTORY: cough TECHNIQUE: AP chest COMPARISON: Chest x-ray, June 20, 2022 FINDINGS: A left single lead AICD/pacemaker has leads in unchanged position,oriented vertically in the retrosternal region. Lungs are clear and without focal consolidation. The cardiomediastinal silhouette and pulmonary vasculature are within normal limits. Nopleural effusion or pneumothorax. No acute osseous findings. IMPRESSION No acute cardiopulmonary process. Thank you for letting us participate in the care of this patient. If youare a health care provider and have any questions regarding this report,please contact the number below. For patients who have questions please contactthe health rental boats caretaker that requested your imaging first. Electronically signed by: Jennifer Bassett MD, [facility]([phone]), at 07/02/2022 5:44 PM Danica Barrios MD IMG DX ORDERABLES documented in this encounter Visit Diagnoses Not on filedocumented in this encounter Care Teams Certified Low Vision Therapist Relationship Specialty Start Date End Date None None PCP - General 05/30/22 09/28/23 documented as of this encounter
--- OUTSIDE RECORDS SUMMARY | 2024-09-20 11:06 | XMS_ITS | Encounter Summary ---
Author Organization [facility] Address [facility] [place] [address] Care Team Providers Care Kindergarten Teacher Name Role Phone None Primary Care Provider Unavailabl e Reason for Visit * Reason Comments Routine Visit Encounter Details Date Type Department Care Team (Late st Contact Info) Description 05/30/2022 8:15 AM EDT Routine Obstetrics [place] [address] Romana Torres MD [facility] [address] [place] [address] GA: 29w0d Social History Tobacco Use Types Packs/Day Years [...] Sign Reading Time Taken Comments Blood Pressure 118/70 05/30/2022 7:00 AM EDT Pulse 85 05/30/2022 7:00 AM EDT Temperature 36.4 ??C (97.6 ??F) 05/30/2022 7:00 AM ED T Respiratory Rate - - Oxygen Saturation 98% 05/30/2022 7:00 AM EDT Inhaled Oxygen Concentration - - Weight 77.8 kg (171 lb 9.6 oz) 05/30/2022 7:00 A M EDT Height - - Body Mass Index 29.46 05/14/2022 10:23 AM EDT documented in this encounter Progress Notes * Christal Kebede LNA - 05/30/2022 8:15 AM EDT Examination chaperoned by KENDRICK Richardson. * Carey Ibarra RN - 05/30/2022 8:15 AM EDT Aniya Luque, : 1985, GA: 29w0d presents for NST r/o pre-term contractions Maternal HR: 80 Maternal SPO2: 100% NST monitored for 27mins Reactive NST reviewed by Dr. Torres NST Fetus A 05/30/2022 HR (beats/min) 135 HR Variability moderate (amplitude range 6 to 25 bpm) HR Accelerations present;lasts at least 10 seconds (32 wks gest or less);greater than/equal to 10 bpm (32 wks gest or less) HR Decelerations none Contraction Frequency (Minutes) none Nonstress Test Interpretation Reactive <32 week: two 10 bpm accelerations lasting 10 seconds Overall Impression Reassuring for gestational age Comments Reviewed with Dr. Torres * Romana Torres MD - 05/30/2022 8:15 AM EDT Complains of low back pain and abdominal pain. Not sure about contractions. Less movement. No bleeding Her partner reports that she is more depressed. She has a therapist and will follow up with her She expresses severe frustration that we are not on the same page She wants to be delivered earlyand feels that the cardiologists promised her that she would have a delivery. She has pushed for that before given chronic pain. She claimed that she had delivered her babies early which she did not Patient Vitals for the past 24 hrs: Temp Pulse BP SpO2 05/30/22 0700 36.4 ??C (97.6 ??F) 85 118/70 98 % VE closed, long, high NST: reactive without contractions - I recommended CBC and hemogram which she was willing to do at [facility] - I recommended a follow up in 2 weeks. I am not sure what she will do - I will talk with Dr. Ricci to see if she is willing to continue the routine care ERB documented in this encounter Plan of Treatment Upcoming Encounters Date Type Department Care Team (Late st Contact Info) Description 09/21/2024 8:15 AM EST Routine Obstetrics [place] [address] Emili Cabrera MD [facility] [place] [address] 09/26/2024 6:00 PM EST Appointment [facility] [place] [phone] 10/16/2024 [place] [address] Dudley Aguilar MD [facility] DR [place] [address] 11/08/2024 10:00 AM EST Hospital Encounter Non-[place] [phone] Arrived documented as of this encounter Visit Diagnoses Diagnosis Lower abdominal pain Abdominal pain, other specified site Supervision of high risk in third trimester Unspecified high-risk documented in this encounter Care Teams Kindergarten Teacher Relationship Specialty Start Date End Date None None PCP - General 05/30/22 09/28/23 documented as of this encounter
--- OUTSIDE RECORDS SUMMARY | 2024-09-20 11:06 | XMS_ITS | Encounter Summary ---
Author Organization [facility] Address [facility] [place] [address] Care Team Providers Care Negative Retoucher Name Role Phone None Primary Care Provider Unavailabl e Encounter Details Date Type Department Care Team (Late st Contact Info) Description 06/05/2022 Orders Only Cardiology at [address] [phone] Parminder Fisher MD [facility] [place] [address] Palpitation Social History Tobacco Use Types Packs/Day Years [...] EST Routine Obstetrics [place] [phone] Emili Cabrera MD [facility] [place] [address] 09/26/2024 6:00 PM EST Appointment [facility] [place] [phone] 10/16/2024 [place] [phone] Dudley Aguilar MD [facility] DR OBSTETRICS [place] [address] 11/08/2024 10:00 AM EST Hospital Encounter Non-Invasive [place] [phone] Arrived documented as of this encounter Results * EKG 12 Lead (06/28/2022 11:24 AM EDT) Ventricular rate 95 BPM MUSE SYSTEM Atrial Rate 95 BPM MUSE SYSTEM P-R Interval 126 ms MUSE SYSTEM QRS Duration 84 ms MUSE SYSTEM Q-T Interval 352 ms MUSE SYSTEM QTC Calculated (Bezet) 442 ms MUSE SYSTEM Calculated P Itmann 31 degrees MUSE SYSTEM Calculated R Itmann 21 degrees MUSE SYSTEM Calculated T Itmann 26 degrees MUSE SYSTEM INTERPRETATION Normal sinus rhythm Nonspecific ST abnormality Abnormal ECG When compared with ECG of 20-JUN-2022 18:03, No significant change was found Confirmed by MD ANEUDY, ANGELO ([id number]) on 06/28/2022 1:34:41 PM MUSE SYSTEM 06/28/2022 11:2 4 AM EDT 06/28/2022 1:34 PM EDT Parminder Fisher MD ECG ORDERABLES MUSE SYSTEM documented in this encounter Visit Diagnoses Diagnosis Palpitation Palpitations documented in this encounter Care Teams Negative Retoucher Relationship Specialty Start Date End Date None None PCP - General 05/30/22 09/28/23 documented as of this encounter
--- OUTSIDE RECORDS SUMMARY | 2024-09-20 11:06 | XMS_ITS | Encounter Summary ---
Author Organization [facility] Address [facility] [place] [address] Care Team Providers Care Nut Sheller Machine Operator Name Role Phone Kenia Lawrence APRN Primary Care Provider [phone]- [phone] Encounter Details Date Type Department Care Team (Late st Contact Info) Description 05/14/2022 11:59 PM EDT Anesthesia [place] [address] Wilberto Mcdaniel MD [facility] DR ANEST[place] [address] Anesthesia Record Procedure Summary Procedure Name Responsible Anesthesiologist Anesthesia Start Time Anesthesia Stop Time OFFICE VISIT Events No events on file. Meds * [...] OR Notes * Anesthesia Preprocedure Evaluation - Michael Lawson MD - 05/14/2022 11:36 AM EDT Pre-Anesthesia Evaluation for: Aniya Luque a 36 y.o. female. Patient Active Problem List Diagnosis Date Noted ??? Subcutaneous defibrillator implanted 11/12/2019 11/12/2021 ??? Cigarette smoker 11/11/2021 ??? 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 Chest pain 01/17/2016 ETT 2014- negative ST III Echo 2013 ??Normal LV size and function, trivial TR, mild PI ??? 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 Depression ??? Headache ??? Hypertension 08/03/2014 Past Surgical History: Procedure Laterality Date ??? DILATION AND CURETTAGE OF UTERUS x2 ??? PRO UPPER GI ENDOSCOPY, DIAGNOSTIC N/A 01/09/2021 EGD, UPPER GI ENDOSCOPY performed by Dudley Alva MD at [facility] Social History Tobacco Use ??? Smoking [...] (See Comments) Cannot recall ??? Penicillins Rash ??? Seroquel [Quetiapine] Other (See Comments) Made head feel loopy. Medications: MAR and/or home medications have been reviewed. Physical Exam: Preprocedure Vitals Current as of 05/14/22 1136 BP: 116/71 Pulse: 102 Resp: SpO2: 99 Temp: Height: 162.6 cm (5' 4) (05/14/22) Weight: 77.1 kg (170 lb) (05/14/22) BMI: 29.18 IBW: 54.7 kg (120 lb 10.7 oz) Last edited 05/14/22 1023 by JEANNETTE Anesthesia Physical Exam Last Filed Perioperative Cognitive Screening None Anesthesia Plan Anesthesia Screening Note: Date and Time of Entry: 05/14/2022 11:36 AM Entered By: Michael Lawson MD Reason for Evaluation: Surgeon Request Hx of Anesthesia Problem: Multiple VF arrests s/p ICD placement Screening Visit Type: Interviewed in person Additional/Outside Records Requested? Did not request medical information from outside organization. Findings, Assessment and Plan: Aniya Luque is [...] Carpreg 3-15% incidence of cardiac events expected. She takes amlodipine to prevent coronary vasospasm. She does continue to endorse somewhat vague chest pain for which she takes sublingual NTG a few times per week. It is unclear if this due to anxiety or cardiac in etiology. PMH is otherwise notable for active smoker, asthma, HTN, borderline personality disorder, PTSD, anxiety, depression. Her psychiatric disease significantly impacts her function and, per her chart, is the reason that 2 of her children are under the care of relatives. Pertinent allergies: penicillin (rash), morphine (patient not aware of allergy/reaction but has tolerated other PO opioids including hydrocodone but reports significant pruritis) Anesthesia history: denies prior GA and very strongly wishes to avoid it; denies FH of problems with anesthesia. She has epidurals for the L&D for prior pregnancies without issue. Reports that the epidurals worked well. Functional status: >4 METS Assessment/plan: 36F at 26w5 with multiple VF arrests in October 2021 presumed due to severe coronary vasospasm. Cardiac workup shows normal LVEF with no myocardial damage, cardiomyopathy, or WMAs. Patient is followed closely by Cardiology and understands that her risk of cardiac event during the peripartum period is greatly increased. The only optimization that can be done from the anesthesia standpoint at this time is encouraging smoking cessation. She has been extensively counseled that the single most important change that she could make to minimize her risk during this is to quit smoking. We discussed this again today. She understands that her risk of recurrent vasospasm is increased by her continued smoking, andanna reports that she is trying to quit. She sees a smoking cessation team but continues to smoke about 0.5ppd. Otherwise, anesthesia plan includes early epidural and [...] the procedure, EP should evaluate her device. Michael Lawson MD [facility] 05/14/22 documented in this encounter Plan of Treatment Upcoming Encounters Date Type Department Care Team (Late st Contact Info) Description 09/21/2024 8:15 AM EST Routine Obstetrics [place] [address] Emili Cabrera MD [facility] DR MATERNAL [place] [address] 09/26/2024 6:00 PM EST Appointment [facility] [place] [address] 10/16/2024 [place] [address] Dudley Aguilar MD [facility] DR OBSTETRICS [place] [address] 11/08/2024 10:00 AM EST Hospital Encounter Non-[place] [address] Arrived documented as of this encounter Visit Diagnoses Not on filedocumented in this encounter Care Teams Nut Sheller Machine Operator Relationship Specialty Start Date End Date Kenia Lawrence APRN [address] [place] [address] PCP - General Family Medicine 10/10/21 05/20/22 documented as of this encounter
--- OUTSIDE RECORDS SUMMARY | 2024-09-20 11:06 | XMS_ITS | Encounter Summary ---
Author Organization [facility] [place] [address] Care Team Providers Care Manager Animal Name Role Phone None Primary Care Provider Unavailabl e Encounter Details Date Type Department Care Team (Late st Contact Info) Description 06/12/2022 9:30 AM EDT Tech [place] [address] Annabelle Levi Right leg pain Social History Tobacco Use Types Packs/Day Years [...] AM EST Routine Obstetrics [place] [phone] Emili Cabrera MD [facility] [place] [address] 09/26/2024 6:00 PM EST Appointment [facility] [place] [address] 10/16/2024 [facility] [place] [address] Dudley Aguilar MD [facility] DR OBSTETRICS [place] [address] 11/08/2024 10:00 AM EST Hospital Encounter Non-[place]vasive [place] [address] Arrived documented as of this encounter Procedures Procedure Name Priority Date/Time Associated Diagnosis Comments DUPLEX FOR DVT, LEG, UNILAT Routine 06/12/2022 9:39 AM EDT Right leg pain documented in this encounter Results * Duplex for DVT, Leg, Unilat (06/12/2022 9:39 AM EDT) VB Text Report Department: Vascular Surgery Lab Patient: [id number] (JOSE JUAN LUQUE) CPT: 74532 Referring Physician: ROMANA TORRES ?? Indications: RT [...] AM EDT Romana Torres MD VASCULAR ORDERABLES VASCUBASE documented in this encounter Visit Diagnoses Diagnosis Right leg pain Pain in limb documented in this encounter Care Teams Manager Animal Relationship Specialty Start Date End Date None None PCP - General 05/30/22 09/28/23 documented as of this encounter
--- OUTSIDE RECORDS SUMMARY | 2024-09-20 11:06 | XMS_ITS | Encounter Summary ---
Author Organization [facility] [place] [address] Care Team Providers Care Education Analyst Name Role Phone None Primary Care Provider Unavailabl e Encounter Details Date Type Department Care Team (Late st Contact Info) Description 06/10/2022 Telephone Obstetrics [place] [phone] Faiza Poe RN Social History Tobacco Use Types Packs/Day [...] Telephone Encounter - Faiza Poe RN - 06/10/2022 11:59 AM EDT Aniya Luque is a 36 y.o. female who is 30w, 4d gestation. RC to Aniya. No answer on mobile. Left voicemail to call clinic back. documented in this encounter Plan of Treatment Upcoming Encounters Date Type Department Care Team (Late st Contact Info) Description 09/21/2024 8:15 AM EST Routine Obstetrics [place] [phone] Emili Cabrera MD [facility] [place] [address] 09/26/2024 6:00 PM EST Appointment [facility] [place] [phone] 10/16/2024 [place] [phone] Dudley Aguilar MD [facility] DR OBSTETRICS [place] [address] 11/08/2024 10:00 AM EST Hospital Encounter Non-Invasive [place] [phone] Arrived documented as of this encounter Visit Diagnoses Not on filedocumented in this encounter Care Teams Education Analyst Relationship Specialty Start Date End Date None None PCP - General 05/30/22 09/28/23 documented as of this encounter
--- OUTSIDE RECORDS SUMMARY | 2024-09-20 11:06 | XMS_ITS | Encounter Summary ---
Author Organization [facility] Address [facility] [place] [address] Care Team Providers Care Gas Utility Worker Name Role Phone None Primary Care Provider Unavailabl e Encounter Details Date Type Department Care Team (Late st Contact Info) Description 07/09/2022 10:20 AM EDT Office Visit Cardiology at [address] [phone] Kaylen Brasher MD [facility] [place] [address] Coronary artery vasospasm; Cigarette smoker; Chest pain, unspecified type Social History Tobacco Use Types [...] Sign Reading Time Taken Comments Blood Pressure 125/74 07/09/2022 10:36 AM EDT Pulse 81 07/09/2022 10:36 AM EDT Temperature - - Respiratory Rate - - Oxygen Saturation 100% 07/09/2022 10:36 AM EDT Inhaled Oxygen Concentration - - Weight 79.4 kg (175 lb) 07/09/2022 10:36 AM EDT Height 162.6 cm (5' 4) 07/09/2022 10:36 AM EDT Reported Body Mass Index 30.04 07/09/2022 10:36 AM EDT documented in this encounter Progress Notes * Kaylen Brasher MD - 07/09/2022 10:20 AM EDT Images from the original note were not included. [facility] [place] [address] [address] CARDIOLOGY OUTPATIENT PROGRESS NOTE PRIMARY CARE PROVIDER: None REFERRING PROVIDER: No ref. provider found PROBLEM LIST: Patient Active Problem List Diagnosis ??? Subcutaneous defibrillator implanted 11/12/2021 Pulse generator: [employer] MRI S-ICD Pulse Generator Model A219 Serial Number [id number] Implanted 11/12/21 Ventricular electrode: SQ electrode Model 3501 Bipolar Serial Number [id number] Implanted 11/12/21 ??? Cigarette smoker ??? Coronary [...] disease Added automatically from request for surgery [id number] ??? Borderline personality disorder ??? Post-traumatic stress [...] negative 2007 (in [facility]) ??? Hypertension Onset 2014, variable BP highs of 160-170 systolic, then [...] 2 times daily. 10 tablet 0 ??? azithromycin (ZITHROMAX) 500 mg Tablet Take 1 tablet by mouth daily. 2 tablet 0 ??? famotidine (Pepcid) 40 mg [...] 0.5 % Lotion Every 12 hours. ??? diclofenac (Voltaren) 1 % Gel APPLY A QUARTER SIZED AMOUNT TO PAINFUL AREA ON CHEST TWO TIMES ADAY FOR 14 DAYS ??? fluticasone propionate (Flonase) 50 mcg/actuation [place], Suspension 1 spray by Each Nare route [...] 1 tablet by mouth as needed. ??? nitroGLYcerin (Nitrostat) 0.4 mg Tablet, Sublingual Place 1 tablet under the tongue every 5 minutes as needed for Chest pain. 30 tablet 1 No current facility-administered medications for this visit. Subjective: Patient ID: Aniya Luque is a 37 y.o. patient of None. HPI: 37 yo F, 35 weeks gestation, here for cardio-ob follow up Previous witnessed VF cardiac arrest with bystander CPR ( her amanda Root) and ROSC after extensive resuscitation. PTSD, anxiety S/p sICD, never fired Echo normal Cath: incomplete, cor spasm during angiogram Presumed Dx for VF was coronary spasm, which was hard to confirm. C/o chest pain, not feeling well. Very anxious. She understands the rationale of not inducing her pre-term, and acknowledged that we are on the same page. C/o dizziness which has been chronic, BP OK. REVIEW OF SYSTEMS: Review of Systems Cardiovascular: Positive for chest pain, dyspnea on exertion, leg swelling and palpitations. Respiratory: Positive for shortness of breath. No PND or orthopnea No syncope No [...] Not on file Objective: PHYSICAL EXAM: BP 125/74 (Patient Position: Sitting) Pulse 81 Ht 162.6 cm (5' 4) Comment: Reported Wt 79.4 kg (175 lb) LMP 11/08/2021 SpO2 100% BMI 30.04 kg/m?? , Body mass index is 30.04 kg/m??. General: Pleasant. No distress. Skin: Warm and dry. HEENT: Anicteric sclera. Neck: JVP not elevated. No AJR. No carotid bruits. Chest: Clear to auscultation Heart: No heave. Regularly regular rhythm. Normal S1 and S2. No gallops. No murmurs. Abdomen: Nondistended. Soft. Nontender. Extremities: No edema. TYPE CUTTER: Normal mentation. Psych: Appropriate affect. Labs: Lab Results Component Value Date WBC 13.4 (H) 06/27/2022 WBC 16.8 (H) 06/20/2022 WBC 13.2 (H) 11/16/2021 HGB 10.0 (L) 06/27/2022 HGB 11.2 (L) 06/20/2022 HGB 10.7 (L) 11/16/2021 PLATELET 300 06/27/2022 PLATELET 327 06/20/2022 PLATELET 563 (H) 11/16/2021 NA 135 06/20/2022 NA 137 01/16/2022 NA 138 11/16/2021 K 3.6 06/20/2022 K 3.9 01/16/2022 K 4.3 11/16/2021 CL 99 06/20/2022 CL 100 01/16/2022 CL 103 11/16/2021 CO2 24 06/20/2022 CO2 23 01/16/2022 CO2 24 11/16/2021 BUN 8 06/20/2022 BUN 10 01/16/2022 BUN 16 11/16/2021 CREATININE 0.85 06/20/2022 CREATININE 0.81 01/16/2022 CREATININE 0.91 11/16/2021 TRIG 130 11/04/2021 Assessment: Aniya Luque is a 37 y.o. patient of None presenting with: cardio-ob follow up, dizziness Coronary artery vasospasm Presumed diagnosis On CCB C/o dizziness with good BP Will continue the same dosage Pt agree Cigarette smoker Discussed smoking cessation Chest pain Symptoms are non-cardiac reassurance Plan: ??? Reassurance ??? Continue current CCB (amlodipine) ??? Planned induction at 37 weeks Thank you for the opportunity to participate in this patient's cardiovascular care. All questions were answered and I look forward to the next visit. Kaylen Brasher MD documented in this encounter Miscellaneous Notes * Assessment & Plan Note - Kaylen Brasher MD - 07/09/2022 1:50 PM EDT Associated Problem(s): Cardiac Arrest Due to Vasospasm Symptoms are non-cardiac reassurance * Assessment & Plan Note - Kaylen Brasher MD - 07/09/2022 1:50 PM EDT Associated Problem(s): Cigarette smoker Discussed smoking cessation * Assessment & Plan Note - Kaylen Brasher MD - 07/09/2022 1:49 PM EDT Associated Problem(s): Coronary artery vasospasm Presumed diagnosis On CCB C/o dizziness with good BP Will continue the same dosage Pt agree documented in this encounter Plan of Treatment Upcoming Encounters Date Type Department Care Team (Late st Contact Info) Description 09/21/2024 8:15 AM EST Routine Obstetrics [place] [address] Emili Cabrera MD [facility] [address] [place] [address] 09/26/2024 6:00 [place] [address] 10/16/2024 [place] [address] Dudley Aguilar MD [facility] OBSTETRICS [place] [address] 11/08/2024 10:00 AM EST Hospital Encounter Non-[place] [address] Arrived documented as of this encounter Visit Diagnoses Diagnosis Coronary artery vasospasm Prinzmetal angina Cigarette smoker Tobacco use disorder Chest pain, unspecified type documented in this encounter Care Teams Gas Utility Worker Relationship Specialty Start Date End Date None None PCP - General 05/30/22 09/28/23 documented as of this encounter
--- OUTSIDE RECORDS SUMMARY | 2024-09-20 11:06 | XMS_ITS | Encounter Summary ---
[place] [address] Care Team Providers Care Real Estate Financial Analyst Name Role Phone MelindaKenia ford ADRIAN Primary Care Provider [phone]- [phone] Encounter Details Date Type Department Care Team (Late st Contact Info) Description 04/26/2022 10:00 AM EDT Office Visit [place] [address] Kristina Schmidt MD [address] [place] [address] [place] [address] Abnormal ultrasound Social History Tobacco Use Types Packs/Day Years [...] as of this encounter Progress Notes * Kristina Schmidt MD - 04/26/2022 10:00 AM EDT Cardiology Clinic Primary OB provider: Dr. Romana Torres Indication for Evaluation: Limited views of the heart Patient history: I was asked by Dr. Romana Torres to see Aniya Luque for advice regarding limited views of the heart. Aniya is a 36 y.o. female who is currently at 24 1/7 weeks gestation based on an EDC of 08/15/22. Cardiac views were limited on the morphology scan at 19 weeks gestation. The ductal arch was not able to be seen on repeat ultrasound at 21 weeks gestation. She plans to deliver at [facility]. Medications: Current Outpatient Medications on File Prior to Visit Medication Sig Dispense Refill ??? clonazePAM (KlonoPIN) 1 mg Tablet Take 1 mg by mouth 3 times daily as needed. ??? amLODIPine (Norvasc) 10 mg Tablet Take 0.5 tablets by mouth 2 times daily. 90 tablet 3 ??? [DISCONTINUED] isosorbide mononitrate CR (Imdur) 30 mg Tablet Sustained Release 24 hr Take 0.5 tablets by mouth daily. (Patient not taking: No sig reported) 90 tablet 3 ??? Hydrocortisone 0.5 % Lotion Every 12 hours. ??? diclofenac (Voltaren) 1 % Gel APPLY A QUARTER SIZED AMOUNT TO PAINFUL AREA ON CHEST TWO TIMES ADAY FOR 14 DAYS ??? famotidine (Pepcid) 20 mg Tablet Take 1 tablet by mouth 2 times daily (before meals). Substitute with OTC as needed 60 tablet 0 ??? fluticasone propionate (Flonase) 50 mcg/actuation [place], Suspension 1 spray by Each Nare route nightly. Substitute OTC if needed Indications: inflammation of the nose due to an allergy 16 g 1 ??? acetaminophen (Tylenol) 500 mg Tablet Take 2 tablets by mouth every 8 hours as needed for Pain.Substitute OTC if needed 60 tablet 1 ??? nitroGLYcerin (Nitrostat) 0.4 mg Tablet, Sublingual Place 1 tablet under the tongue every 5 minutes as needed for Chest pain. 30 tablet 0 ??? vitamin C 500 mg Tablet TAKE [...] TWICE DAILY ON AN EMPTY STOMACH ??? diphenhydrAMINE/aluminum-magnesium hydroxide with simethicone/lidocaine (BMX) (6.67 mg-0.83 mg-13.33 mg-1.33 mg/mL) oral liquid Take by mouth. ??? albuterol 90 mcg/actuation HFA Aerosol Inhaler Inhale 2 puffs into the lungs every 4 hours as needed for Wheezing. Use with spacer ??? calcium carbonate (TUMS) 200 mg calcium (500 mg) Tablet, Chewable Take 1 tablet by mouth as needed. No current facility-administered medications on file prior to visit. Past Medical History: Patient Active Problem List Diagnosis Code ??? Depression F32.A ??? Asthma J45.909 ??? Hypertension I10 ??? Tachycardia R00.0 ??? Skin disease L98.9 ??? Chest pain R07.9 ??? Anxiety disorder, unspecified F41.9 ??? Borderline personality disorder F60.3 ??? Post-traumatic stress disorder, chronic F43.12 ??? Gastroesophageal reflux disease K21.9 ??? Cardiac arrest I46.9 ??? Coronary artery vasospasm I20.1 ??? *History of COVID-19 Z86.16 ??? Cigarette smoker F17.210 ??? Subcutaneous defibrillator implanted 11/12/2019 Z95.810 ??? Recurrent major depressive episodes, moderate F33.1 Family Medical History: The father reports that his brother had a murmur as an and needed open heart surgery in infancy. He has a midline sternotomy scar. He also reports that 4 of his cousinshad heart murmurs and one from complications associated with congenital heart disease. Social History: She is single. The father of the baby is 36 yo. She has 3 children ages 18, 12 and 5. She admits to tobacco use in the . She is not employed. echocardiogram results: A complete echocardiogram was performed today which demonstrates: ?? Single intrauterine with levocardia, visceral situs solitus, [S,D,S] normal segmental anatomy with normal chamber dimensions. ?? heart rate was 155 bpm and the AV interval was 112 ms. Normal rhythm throughout. ?? The tricuspid valve appears normal. There is no evidence of tricuspid insufficiency. ?? The mitral valve appears normal. There is no evidence of mitral regurgitation. ?? Qualitatively, there is normal biventricular size and shortening. ?? No evidence of pulmonary stenosis or insufficiency. ?? No evidence of aortic stenosis or insufficiency. ?? Flow across the aortic arch appears unobstructed with no evidence of coarctation of the aorta. ?? Ductus arteriosus with nonrestricted right to left flow. ?? Moderate size foramen ovale with right to left flow. ?? No evidence of a VSD. ?? No evidence of a pericardial effusion. ? Normal umbilical artery and umbilical vein flow patterns. Normal flow pattern in the ductus venosus. ?? See full report for further details. Diagnosis: ?? 36 y.o. female at 24 1/7 weeks gestation ?? Previous ultrasound with limited views of the heart ?? No evidence of a cardiac abnormality on echocardiogram today Recommendation: ? I have reviewed normal cardiac anatomy with Amarjit and relayed that I see no evidence of a major structural cardiac abnormality on my imaging today. ??? I have also relayed that echocardiography may not be able to detect certain conditions (these include but are not limited to certain septal defects, coarctation of the aorta, or subtle valve abnormalities), nor can it predict the persistence of structures related to circulation suchas a patent foramen ovale or a patent ductus arteriosus. Therefore, if there is any suspicion of a cardiac abnormality after , further evaluation would be warranted. Otherwise no specific Cardiology follow up for the child is needed. ??? Aniya does not require further follow up in our clinic unless additional concerns arise. I appreciate the opportunity to participate in the care of this patient. Please feel free to contact me for any further questions or concerns. Total visit time was 30 minutes with more than 50 percent of the time spent exclusive of proceduraltime in reviewing patient records/history and [id number] counseling to discuss normal cardiac anatomy and physiology, review of today's echocardiogram results and review of those findings which can and cannot be prenatally detected as described above. documented in this encounter Plan of Treatment Upcoming Encounters Date Type Department Care Team (Late st Contact Info) Description 09/21/2024 8:15 AM EST Routine Obstetrics [place] [address] Emili Cabrera MD [facility] [address] MATERNAL [place] [address] 09/26/2024 6:00 PM EST Appointment [facility] [phone] 10/16/2024 [place] [address] Dudley Aguilar MD [facility] [address] OBSTETRICS [place] [address] 11/08/2024 10:00 AM EST Hospital Encounter Non-Invasive [place] [address] Arrived documented as of this encounter Visit Diagnoses Diagnosis Abnormal ultrasound Abnormal findings on screening documented in this encounter Care Teams Real Estate Financial Analyst Relationship Specialty Start Date End Date Kenia Lawrence APRN [address] [place] [address] PCP - General Family Medicine 10/10/21 05/20/22 documented as of this encounter
--- OUTSIDE RECORDS SUMMARY | 2024-09-20 11:06 | XMS_ITS | Encounter Summary ---
Author Organization [facility] Address [facility] [place] [address] Care Team Providers Care Proposition Player Name Role Phone None Primary Care Provider Unavailabl e Encounter Details Date Type Department Care Team (Late st Contact Info) Description 06/28/2022 11:00 AM EDT Office Visit Cardiology at [address] [phone] Ej Zurita MD [facility] [place] [address] Palpitation Social History Tobacco Use Types Packs/Day [...] Sign Reading Time Taken Comments Blood Pressure 133/83 06/28/2022 11:19 AM EDT Pulse 95 06/28/2022 11:19 AM EDT Temperature - - Respiratory Rate - - Oxygen Saturation 100% 06/28/2022 11: 19 AM EDT Inhaled Oxygen Concentration - - Weight 77.9 kg (171 lb 11.2 oz) 06/28/2022 11:19 AM EDT Height 162.6 cm (5' 4) 06/28/2022 11:1 9 AM EDT patient reported Body Mass Index 29.47 06/28/2022 11:19 AM EDT documented in this encounter Patient Instructions * Patient Instructions* Ej Zurita MD - 06/28/2022 11:00 AM EDT For shortness of breath-continue albuterol and I will discuss your WBC count with Dr. Torres. For chest pain, increase amlodipine (norvasc) to 2 tablets at night. Keep doing 1 in the morning. You can use nitroglycerin as needed if it helps you. At OB visits, they will let us know how you are doing. For your device related pain, the only real option is to move it surgically, which is not ideal right now so far into and ultimately is a last resort. documented in this encounter Progress Notes * Ej Zurita MD - 06/28/2022 11:00 AM EDT Images from the original note were not included. Formerly [facility] [place] [address] CARDIOLOGY OUTPATIENT PROGRESS NOTE PRIMARY CARE PROVIDER: None REFERRING PROVIDER: None PROBLEM LIST: Patient Active Problem List Diagnosis ??? Subcutaneous defibrillator implanted 11/12/2021 Pulse generator: [employer] You [employer] MRI S-ICD Pulse Generator Model A219 Serial Number [id number] Implanted 11/12/21 Ventricular electrode: SQ electrode Model 3501 Bipolar Serial Number [id number] Implanted 11/12/21 ??? Cigarette smoker ??? Coronary [...] disease Added automatically from request for surgery [id number] ??? Borderline personality disorder ??? Post-traumatic stress [...] DAYS ??? fluticasone propionate (Flonase) 50 mcg/actuation [place], Suspension 1 spray by Each Nare route [...] Aniya Luque is a 37 y.o. female here for evaluation of chest pain during HPI: Summary: Cardiac arrest secondary to vasospasm on CCB/nitrates PRN. There did not appear to have been myocardial damage nor cardiomyopathy after her arrest. LVEF 68% without RWMA. ?She has a sub-QICD which has not fired. ??And was counseled extensively to quit smoking.? 33 weeks gestation Aniya is coming in for an urgent visit for chest pain. She reports a high degree of anxiety abouther and planning for delivery. She reports that she was not having chest pain for a time and was not requiring her nitroglycerin, however, in the last few weeks she has been having her usual heartburn like sensation that she associates with her prior cardiac event. She is taking amlodipine 2.5 mg twice daily. This was reduced from 5 mg for lowish blood pressures. She continues to smoke.She recently had a pneumonia and completed a course of antibiotics. Her breathing has not returned to baseline although she is not wheezing today. She continues to be bothered by her subcutaneous ICD. When she sleeps at night this causes her pain and when she lays on it it causes a burning sensation. Unfortunately she just has never adjusted to its presence. We discussed how this was not fixable without removing and replacing the device and how this could not be done during . ?? She has been seeing Dr. Aranda (OB) and finding good rapport. She continues to see MFM here who will dictate the timing for delivery. Details of her initial hospitalization and course: Hospitalized 11/04-. ??She had a witnessedVF cardiac arrest with bystander CPR ( her amanda Root) and ROSC after extensive resuscitation. ??Targeted temperature management was pursued. ??Troponin-T was trended, stormy from 0.02 on??presentation to 0.24. ??Around 3pm on day of admission patient again had witnessed cardiac arrest. ??Went intojunctional rhythm with ST elevations on telemetry. ??Rhythm progressed to pulseless Vtach and then Vfib. ??She was shocked x 3, given 300 mg amio bolus and started on an amio gtt. Post resuscitation ECG shows sinus tachycardia with QTC of 484 and no acute ischemic changes. ??No significant changes were found compared to her prior ECG.?There was no evidence of Brugada or accessory pathway. ??The patient underwent CT PE which was negative for PE. ??Her head CT was also negative for bleed. Emergent cath without obstructive left sided CAD. VF occurred again after injection of her left main coronary artery and her arrest was thus presumed due to severe coronary vasospasm. Needed IABP, nicardipine, amiodarone, and lidocaine.??The RCA was not injected due to lack of plaque and profound vasospasm on the left sided injections. Subsequent CTA confirms there is no RCA disease. REVIEW OF SYSTEMS: Review of Systems Cardiovascular: Positive for chest pain. Respiratory: Negative. Neurological: Positive for dizziness. No PND or orthopnea No syncope No [...] Not on file Objective: PHYSICAL EXAM: BP 133/83 (BP Location (NBP): Left arm, Patient Position: Sitting, BP Cuff Sizes: Adult (25-34 cm)) Pulse 95 Ht 162.6 cm (5' 4) Comment: patient reported Wt 77.9 kg (171 lb 11.2 oz) LMP 11/08/2021 SpO2 100% BMI 29.47 kg/m?? , Body mass index is 29.47 kg/m??. General: Pleasant. No distress. Skin: Warm and dry. HEENT: Anicteric sclera. Neck: JVP not elevated. No AJR. No carotid bruits. Chest: Clear to auscultation Heart: No heave. Regularly regular rhythm. Normal S1 and S2. No gallops. No murmurs. Abdomen: Nondistended. Soft. Nontender. Extremities: No edema. NURSE INFORMATICS EDUCATOR: Normal mentation. Psych: Appropriate affect. Labs: Lab [...] Aniya Luque is a 37 y.o. patient presenting with: follow up CP and possible coronary spasm Recent troponin is normal. EKG is nonischemic. Chest pain is not definitively cardiac but does appear to improve with sublingual nitroglycerin at times. Cardiac catheterization and coronary CTA did not show atherosclerotic cardiovascular disease. While I think it is unlikely that her coronary arteries are spasming daily and causing anginal chest pain I have elected to increase her amlodipine for the possibility that some of her chest pain is spasm. Plan: ??? Increase norvasc to 5 mg in the evening and continue 2.5 mg in the morning ??? SLN PRN ??? Delivery timing to be determined by her obstetrics team/needs. There is no cardiac contraindication to continued at this time. ??? Delivery location [facility] be [facility] with a cardiology consultation if there is acute chest pain or dyspnea. No telemetry needed. Please continue amlodipine if able through delivery. ??? RTC post delivery to a cardio obstetrics team. Most recently she has been following with my partner Dr. Brasher Thank you for the opportunity to participate [...] procedures ?referring and communicating with other health medical care manager (when not separately reported) ?documenting clinical information in the electronic or other health record ?independently interpreting results (not separately reported) and communicating results to the patient/family/caregiver ?care coordination (not separately reported) documented in this encounter Plan of Treatment Upcoming Encounters Date Type Department Care Team (Late st Contact Info) Description 09/21/2024 8:15 AM EST Routine Obstetrics [place] [address] Emili Cabrera MD [facility] [address] [place]ERNAL [place] [address] 09/26/2024 6:00 PM EST Appointment [facility] [place] [address] 10/16/2024 Hospital [place] [address] Dudley Aguilar MD [facility] DR OBSTETRICS [place] [address] 11/08/2024 10:00 AM EST Hospital Encounter Non[place] [address] Arrived documented as of this encounter Procedures Procedure Name Priority Date/Time Associated Diagnosis Comments EKG 12-LEAD Routine 06/28/2022 11:24 AM EDT Palpitation documented in this encounter Results * EKG 12 Lead (06/28/2022 11:24 AM EDT) Ventricular rate 95 BPM MUSE SYSTEM Atrial Rate 95 BPM MUSE SYSTEM P-R Interval 126 ms MUSE SYSTEM QRS Duration 84 ms MUSE SYSTEM Q-T Interval 352 ms MUSE SYSTEM QTC Calculated (Bezet) 442 ms MUSE SYSTEM Calculated P [place] 31 degrees MUSE SYSTEM Calculated R [place] 21 degrees MUSE SYSTEM Calculated T [place] 26 degrees MUSE SYSTEM INTERPRETATION Normal sinus [...] Palpitations documented in this encounter Care Teams Proposition Player Relationship Specialty Start Date End Date None None PCP - General 05/30/22 09/28/23 documented as of this encounter
--- OUTSIDE RECORDS SUMMARY | 2024-09-20 11:06 | XMS_ITS | Encounter Summary ---
Author Organization [facility] Address [facility] [place] [address] Care Team Providers Care Timber Treatment Plant Operator Name Role Phone None Primary Care Provider Unavailabl e Reason for Referral * Consultation (Emergency) - Closed Specialty Diagnoses / Procedures Referred By Contac t Referred To Contact Internal Medicine Diagnoses Hypertension, unspecified type Kaila Castellanos MD [facility] OBST[place] [address] [facility] Internal Medicine [address] [place] [address] Referral ID Status Reason Start Date Expiration Date V isits Requested Visits Authorized [id number] Closed Consult, Test & Treat 07/05/2022 07/05/2023 1 1 Reason for Visit * Reason Comments Routine Visit Encounter Details Date Type Department Care Team (Late st Contact Info) Description 07/05/2022 9:30 AM EDT Routine Obstetrics [place] [address] Kaila Castellanos MD [facility] OBSTETRICS AND GYNECOLOGY [place], [place] [id number] GA: [id number] Social History Tobacco Use Types Packs/Day Years [...] Sign Reading Time Taken Comments Blood Pressure 112/72 07/05/2022 9:36 AM EDT Pulse - - Temperature - - Respiratory Rate - - Oxygen Saturation - - Inhaled Oxygen Concentration - - Weight 77.7 kg (171 lb 6.4 oz) 07/05/2022 9:36 A M EDT Height - - Body Mass Index 29.42 06/28/2022 11:19 AM EDT documented in this encounter Progress Notes * Carey Ibarra RN - 07/05/2022 9:30 AM EDT Aniya Luque, : 1985, GA: 34w1d presents for NST Maternal HR: 74 NST monitored for 35mins Reactive NST reviewed with Dr. Castellanos NST Fetus A 07/05/2022 HR (beats/min) 140 HR Variability moderate (amplitude range 6 to 25 bpm) HR Accelerations present;greater than/equal to 15 bpm;lasting at least 15 seconds HR Decelerations none Contraction Frequency (Minutes) occassional Nonstress Test Interpretation Reactive, >32 weeks: two 15 bpm accelerations lasting 15 seconds Overall Impression Reassuring for gestational age Comments Reviewed with Dr. Castellanos * Kaila Castellanos MD - 07/05/2022 9:30 AM EDT FM felt but not as much as she would like, has dribbling down leg at times, perineal/vaginal itching after antibiotics, cramping pelvic pressure. Palpitations unchanged. Has dizziness everyday this week worse in morning. Has environmental allergies causing ear drainage. Does not have local PCP as her family threatened PCP with law suite after her cardiac event. SSE no pooling nitrazine neg SVE closed/posterior/high/soft Referral made to establish PCP care Will check with cardiology about dizziness and possible SE of amlodipine Has IOL scheduled at 37 weeks gave information sheet Considering BTL, consents signed F/u 1 week documented in this encounter Plan of Treatment Upcoming Encounters Date Type Department Care Team (Late st Contact Info) Description 09/21/2024 8:15 AM EST Routine Obstetrics [place] [address] Emili Cabrera MD [facility] [place] [address] 09/26/2024 6:00 [place] [phone] 10/16/2024 [place] [address] Dudley Aguilar MD [facility] DR OBSTETRICS [place] [address] 11/08/2024 10:00 AM EST Hospital Encounter Non-Invasive [place] [address] Arrived Scheduled Referrals Name Type Priority Associated Diagnoses Orde r Schedule Referral to General Internal Medicine Outpatient Referral STAT Hypertension, unspecified type Ordered: 07/05/2022 documented as of this encounter Procedures Procedure Name Priority Date/Time Associated Diagnosis Comments HC FUNGUS CULTURE, MISC SOURCE Routine 07/05/2022 9:30 AM EDT Hypertension, unspecified type POCT URINE DIPSTICK Routine 07/05/2022 Hypertension, unspecified type documented in this encounter Results * (ABNORMAL) Yeast culture Vaginal (07/05/2022 9:30 AM EDT) Yeast Culture Moderate Natalia glabrata(A) [facility] Organism Natalia glabrata(A) [facility] Vaginal 07/05/2022 9:30 AM EDT 07/05/2022 12:39 PM EDT Narrative Resulting Agency Comment Spec In Lab Kaila Castellanos MD MICROBIOLOGY - GEN ERAL ORDERABLES [facility] [place] [address] * POCT urine dipstick (07/05/2022) POC Protein, UA Trace Negative - Negative mg/dL POC Glucose, UA Normal Normal - Normal mg/dL Kaila Castellanos MD POINT OF CARE TEST ORDERABLES documented in this encounter Visit Diagnoses Diagnosis Hypertension, unspecified type documented in this encounter Care Teams Timber Treatment Plant Operator Relationship Specialty Start Date End Date None None PCP - General 05/30/22 09/28/23 documented as of this encounter
--- OUTSIDE RECORDS SUMMARY | 2024-09-20 11:06 | XMS_ITS | Encounter Summary ---
Author Organization [facility] [place] [address] Care Team Providers Care Soils Technician Name Role Phone Kenia Lawrence ADRIAN Primary Care Provider +1- [phone] Encounter Details Date Type Department Care Team (Late st Contact Info) Description 05/14/2022 11:00 AM EDT Office [place] [phone] Social History Tobacco Use Types Packs/Day Years [...] EST Routine Obstetrics [place] [phone] Emili Cabrera MD [facility] [place] [address] 09/26/2024 6:00 PM EST Appointment [facility] [place] [address] 10/16/2024 Hospital [place] [address] Dudley Aguilar MD [facility] DR OBSTETRICS [place] [address] 11/08/2024 10:00 AM EST Hospital Encounter Non-[place]vasive [place] [address] Arrived documented as of this encounter Visit Diagnoses Not on filedocumented in this encounter Care Teams Soils Technician Relationship Specialty Start Date End Date Kenia Lawrence APRN [address] [place] [address] PCP - General Family Medicine 10/10/21 05/20/22 documented as of this encounter
--- OUTSIDE RECORDS SUMMARY | 2024-09-20 11:06 | XMS_ITS | Encounter Summary ---
Author Organization [facility] Address [facility] [place] [address] Care Team Providers Care Assistant District Attorney Name Role Phone MelindaKenia ford ADRIAN Primary Care Provider [phone]- [phone] Encounter Details Date Type Department Care Team (Late st Contact Info) Description 05/14/2022 10:20 AM EDT Office Visit Cardiology at [address] [address] Kaylen Brasher MD [facility] [place] [address] Chest pain, unspecified type; Cigarette smoker; Hypertension, unspecified type Social History Tobacco Use [...] Sign Reading Time Taken Comments Blood Pressure 116/71 05/14/2022 10:23 AM EDT Pulse 102 05/14/2022 10:23 AM EDT Temperature - - Respiratory Rate - - Oxygen Saturation 99% 05/14/2022 10:23 AM EDT Inhaled Oxygen Concentration - - Weight 77.1 kg (170 lb) 05/14/2022 10:23 AM EDT Height 162.6 cm (5' 4) 05/14/2022 10:23 AM EDT Body Mass Index 29.18 05/14/2022 10:23 AM EDT documented in this encounter Progress Notes * Kaylen Brasher MD - 05/14/2022 10:20 AM EDT Images from the original note were not included. Formerly [facility] [place] [address] [place] [address] CARDIOLOGY OUTPATIENT PROGRESS NOTE PRIMARY CARE PROVIDER: Kenia Lawrence APRN REFERRING PROVIDER: No ref. provider found PROBLEM LIST: Patient Active Problem List Diagnosis ??? Subcutaneous defibrillator implanted 11/12/2019 Pulse generator: Emblem MRI S-ICD Pulse Generator Model A219 Serial Number [id number] Implanted 11/12/21 Ventricular electrode: SQ electrode Model 3501 Bipolar Serial Number [id number] Implanted 11/12/21 ??? Cigarette smoker ??? Coronary artery vasospasm ??? *History of COVID-19 ??? Cardiac arrest ??? Gastroesophageal reflux disease Added automatically from request for surgery [id number] ??? Borderline personality disorder ??? Post-traumatic stress [...] Outpatient Medications Medication Sig Dispense Refill ??? FLUoxetine (PROzac) 20 mg/5 mL (4 mg/mL) Solution daily. ??? lidocaine (Xylocaine) 2 % Solution TAKE 10 ML BY MOUTH EVERY 8 HOURS WITH ANTACID ??? Antacid-[place] 200-200-20 mg/5 mL Suspension COMBINE 10 MLS WITH LIDOCAINE ORALLY THREE TIMES A DAY ??? clonazePAM (KlonoPIN) 1 mg Tablet Take 1 mg by mouth 3 times daily as needed. ??? famotidine (Pepcid) 20 mg Tablet Take 1 tablet by mouth 2 times daily (before meals). Substitute with OTC as needed 60 tablet 0 ??? fluticasone propionate (Flonase) 50 mcg/actuation [place], Suspension 1 spray by Each Nare route [...] for Chest pain. 30 tablet 0 ??? cetirizine (ZyrTEC) 10 mg Tablet TAKE ONE TABLET BY MOUTH EVERY DAY ??? fluticasone propionate (Flovent HFA) 110 mcg/actuation HFA Aerosol Inhaler Every 12 hours. ??? ipratropium-albuteroL (Duoneb) 0.5 mg-3 mg(2.5 mg base)/3 mL Solution for Nebulization Every 6 hours. ??? mag/aluminum/sod bicarb/alginc (GAVISCON ORAL) Take by mouth. ??? albuterol 90 mcg/actuation HFA Aerosol Inhaler Inhale 2 puffs into the lungs every 4 hours as needed for Wheezing. Use with spacer ??? calcium carbonate (TUMS) 200 mg calcium (500 mg) Tablet, Chewable Take 1 tablet by mouth as needed. ??? amLODIPine (Norvasc) 2.5 mg Tablet Take 1 tablet by mouth 2 times daily. 180 tablet 1 ??? Hydrocortisone 0.5 % Lotion Every 12 hours. ??? diclofenac (Voltaren) 1 % Gel APPLY A QUARTER SIZED AMOUNT TO PAINFUL AREA ON CHEST TWO TIMES ADAY FOR 14 DAYS ??? vitamin C 500 mg Tablet TAKE ONE TABLET BY MOUTH EVERY DAY ??? sucralfate (Carafate) 1 gram Tablet TAKE 1 TABLET BY MOUTH TWICE DAILY ON AN EMPTY STOMACH ??? diphenhydrAMINE/aluminum-magnesium hydroxide with simethicone/lidocaine (BMX) (6.67 mg-0.83 mg-13.33 mg-1.33 mg/mL) oral liquid Take by mouth. No current facility-administered medications for this visit. Subjective: Patient ID: Aniya Luque is a 36 y.o. patient of Kenia Lawrence APRN. HPI: 36 yo F 26 weeks gestation Hospitalized 11/04-. ??She had a witnessed VF cardiac arrest with bystander CPR ( her fianceeZach) and ROSC after extensive resuscitation. ??Targeted temperature management was pursued. ??Troponin-T was trended, stormy from 0.02 on??presentation to 0.24. ??Around 3pm on day of admission patient again had witnessed cardiac arrest. ??Went into junctional rhythm with ST elevations on telemetry.??Rhythm progressed to pulseless Vtach and then Vfib. [...] profound vasospasm on the left sided injections. ?? Summary: Cardiac arrest secondary to vasospasm on CCB/nitrates PRN. There did not appear to have been myocardial damage nor cardiomyopathy after her arrest. LVEF 68% without RWMA. ?She has a sub-QICD which has not fired. ??And was counseled extensively to quit smoking.? She c/o not feeling well, on and off CP, more dizziness, but no syncope. Anxious about and delivery. ?? She has been seeing Dr. Aranda (OB) and finding good rapport. REVIEW OF SYSTEMS: Review of Systems Cardiovascular: [...] Not on file Objective: PHYSICAL EXAM: BP 116/71 Pulse (!) 102 Ht 162.6 cm (5' 4) Wt 77.1 kg (170 lb) LMP 11/08/2021 SpO2 99% BMI 29.18 kg/m?? , Body mass index is 29.18 kg/m??. General: Pleasant. No distress. Skin: Warm and dry. HEENT: Anicteric sclera. Neck: JVP not elevated. No AJR. No carotid bruits. Chest: Clear to auscultation Heart: No heave. Regularly regular rhythm. Normal S1 and S2. No gallops. No murmurs. Abdomen: Nondistended. Soft. Nontender. Extremities: No edema. CNC SPECIALIST: Normal mentation. Psych: Appropriate affect. Labs: Lab Results Component Value Date WBC 13.2 (H) 11/16/2021 WBC 13.5 (H) 11/14/2021 WBC 17.1 (H) 11/13/2021 HGB 10.7 (L) 11/16/2021 HGB 9.4 (L) 11/14/2021 HGB 9.5 (L) 11/13/2021 PLATELET 563 (H) 11/16/2021 PLATELET 446 (H) 11/14/2021 PLATELET 399 (H) 11/13/2021 NA 137 01/16/2022 NA 138 11/16/2021 NA 137 11/14/2021 K 3.9 01/16/2022 K 4.3 11/16/2021 K 4.3 11/14/2021 CL 100 01/16/2022 CL 103 11/16/2021 CL 106 11/14/2021 CO2 23 01/16/2022 CO2 24 11/16/2021 CO2 21 (L) 11/14/2021 BUN 10 01/16/2022 BUN 16 11/16/2021 BUN 27 (H) 11/14/2021 CREATININE 0.81 01/16/2022 CREATININE 0.91 11/16/2021 CREATININE 0.92 11/14/2021 TRIG 130 11/04/2021 Assessment: Aniya Luque is a 36 y.o. patient of Kenia Lawrence APRN presenting with: follow up CP and possible coronary spasm Chest pain On and off chest discomfort Combination of anxiety, PTSD and possible coronary spasm. C/o more dizziness at 25 weeks gestation Will decrease CCB (norvasc to 2.5 mg bid) Cigarette smoker Smoking cessation Hypertension Monitor home BP Plan: ??? Decrease norvasc to 2.5 mg bid ??? RTC in 10 weeks Thank you for the opportunity to participate in this patient's cardiovascular care. All questions were answered and I look forward to the next visit. Kaylen Brasher MD documented in this encounter Miscellaneous Notes * Assessment & Plan Note - Kaylen Brasher MD - 05/14/2022 3:21 PM EDT Associated Problem(s): Hypertension Monitor home BP * Assessment & Plan Note - Kaylen Brasher MD - 05/14/2022 3:20 PM EDT Associated Problem(s): Cigarette smoker Smoking cessation * Assessment & Plan Note - Kaylen Brasher MD - 05/14/2022 3:18 PM EDT Associated Problem(s): Cardiac Arrest Due to Vasospasm On and off chest discomfort Combination of anxiety, PTSD and possible coronary spasm. C/o more dizziness at 25 weeks gestation Will decrease CCB (norvasc to 2.5 mg bid) documented in this encounter Plan of Treatment Upcoming Encounters Date Type Department Care Team (Late st Contact Info) Description 09/21/2024 8:15 AM EST Routine Obstetrics [place] [phone] Emili Cabrera MD [facility] [place] [address] 09/26/2024 6:00 PM EST Appointment [facility] [place] [phone] 10/16/2024 Hospital [place] [phone] Dudley Aguilar MD [facility] [place] [address] 11/08/2024 10:00 AM EST Hospital Encounter Non-Invasive [place] [phone] Arrived documented as of this encounter Visit Diagnoses Diagnosis Chest pain, unspecified type Cigarette smoker Tobacco use disorder Hypertension, unspecified type documented in this encounter Care Teams Assistant District Attorney Relationship Specialty Start Date End Date Kenia Lawrence APRN [address] [place] [address] PCP - General Family Medicine 10/10/21 05/20/22 documented as of this encounter
--- OUTSIDE RECORDS SUMMARY | 2024-09-20 11:06 | XMS_ITS | Encounter Summary ---
Author Organization [facility] Address [facility] [place] [address] Care Team Providers Care Oral Pathologist Name Role Phone None Primary Care Provider Unavailabl e Encounter Details Date Type Department Care Team (Late st Contact Info) Description 07/02/2022 Telephone Obstetrics [place] [phone] Johan Rangel MD [facility] DR OBSTETRICS [place] [address] Social History Tobacco Use Types Packs/Day Years [...] Telephone Encounter - Johan Rangel MD - 07/02/2022 9:29 PM EDT Aniya Torres Ene is a 37 y.o. who calls asking for information about care received at [facility]. Patient reports that she was seen at [facility] earlier today for back pain. She was apparently told that she needed to be transferred to [facility] due to lab work showing evidence of a blood clot. The provider at [facility] then spoke with a provider on-call at [facility] and more blood work was done and they said I was fine. She calls because she is feeling anxious and wants to know the deta ils of this conversation. She reports that she is still having mild back pain. Denies LOF, vaginal bleeding, contractions. I discussed with Aniya that unfortunately I am not able to see the binder selector of the conversation that was had with the provider at [facility] today. I attempted to provide reassurance that if she was discharged from the hospital it is likely that her results were overall reassuring and that she is unlikely having an acute issue. - Advised to present to care with contractions, vaginal bleeding, decreased FM, LOF, chest pain/SOB, worsening back pain, syncopal episodes. - Will send message to Dr. Oliveira regarding above call. - Patient has follow-up appointment with Dr. Castellanos on Friday07/05/22 Johan Rangel MD PGY-3 07/02/22 documented in this encounter Plan of Treatment Upcoming Encounters Date Type Department Care Team (Late st Contact Info) Description 09/21/2024 8:15 AM EST Routine Obstetrics [place] [address] Emili Cabrera MD [facility] [place] [address] 09/26/2024 6:00 PM EST Appointment [facility] [place] [address] 10/16/2024 [place] [address] Dudley Aguilar MD [facility] [place] [address] 11/08/2024 10:00 AM EST Hospital Encounter [place] [address] Arrived documented as of this encounter Visit Diagnoses Not on filedocumented in this encounter Care Teams Oral Pathologist Relationship Specialty Start Date End Date None None PCP - General 05/30/22 09/28/23 documented as of this encounter
--- OUTSIDE RECORDS SUMMARY | 2024-09-20 11:06 | XMS_ITS | Encounter Summary ---
Author Organization [facility] Address [facility] [place] [address] Care Team Providers Care Podiatrist Orthopedic Name Role Phone Kenia Lawrence ADRIAN Primary Care Provider +1- [phone] Encounter Details Date Type Department Care Team (Late st Contact Info) Description 05/07/2022 Orders Only Cardiology at [address] [address] Social History Tobacco Use Types [...] AM EST Routine Obstetrics [place] [address] Emili Cabrera MD [facility] [place] [address] 09/26/2024 6:[address] [facility] [place] [address] 10/16/2024 Hospital [facility]counter [facility] [place] [address] Dudley Aguilar MD [facility] DR OBSTETRICS [place] [address] 11/08/2024 10:00 AM EST Hospital Encounter [place] [address] Arrived documented as of this encounter Procedures Procedure Name Priority Date/Time Associated Diagnosis Comments CARDIAC DEVICE CHECK - REMOTE PATIENT INITIATED Routine 05/07/2022 9:58 AM EDT documented in this encounter Results * Cardiac device check - Remote Patient Initiated (05/07/2022 9:58 AM EDT) [facility] Implantable Pulse Generator Type Defibrillator [employer] Implantable Pulse Generator Model A219 [employer] Implantable Pulse Generator Serial Number [id number] [employer] Implantable Pulse Generator Top Lift Cutter [employer] ID[employer] Implantable Pulse Generator Implant Date [id number] IDCO Date Time Interrogation Session IDCO Type Interrogation Session Remote Patient Initiated IDCO Clinic Name [facility] IDCO Battery Date Time of Measurements IDCO Battery Status Beginning of Service IDCO Battery Remaining Percentage 96 IDCO Tachy Therapy Setting Ventricular Status On [...] IDCO Episode Statistic Recent Date Time Start 20220213 IDCO Episode Statistic Recent Date Time End 20220507 IDCO Episode Statistic Total Count 0 IDCO Episode Statistic Total Date Time Start 20211112 IDCO Episode Statistic Total Date Time End 20220507 IDCO Episode Statistic Type Category VF IDCO Episode Statistic Vendor Type Category VF IDCO Episode Statistic Recent Count 0 IDCO Episode Statistic Recent Date Time Start 20220213 IDCO Episode Statistic Recent Date Time End 20220507 IDCO Episode Statistic Total Count 0 IDCO Episode Statistic Total Date Time Start 20211112 IDCO Episode Statistic Total Date Time End 20220507 IDCO Therapy Statistic Recent Date Time Start 20220213 IDCO Therapy Statistic Recent Date Time End 20220507 IDCO Therapy Statistic Recent Shocks Delivered 0 IDCO Therapy Statistic Total Date Time Start 20211112 IDCO Therapy Statistic Total Date Time End 20220507 IDCO Therapy Statistic Total Shocks Delivered 1 [employer]CO Implantable Lead Model 3501 [employer] Implantable Lead Serial Number [id number] [employer] Implantable Lead Top Lift Cutter [employer] IDCO Implantable Lead Location Other IDCO Implantable Lead Location Detail 1 Subcutaneous IDCO Anatomical Region Laterality Modality Other 05/07/2022 9:58 AM EDT Physician Cardiology IMPLANTABLE CARD IAC DEVICE documented in this encounter Visit Diagnoses Not on filedocumented in this encounter Care Teams Podiatrist Orthopedic Relationship Specialty Start Date End Date Kenia Lawrence, ADRIAN [address] [place] [address] PCP - General Family Medicine 10/10/21 05/20/22 documented as of this encounter
--- OUTSIDE RECORDS SUMMARY | 2024-09-20 11:06 | XMS_ITS | Encounter Summary ---
Author Organization [facility] Address [facility] [address] Care Team Providers Care Miller Apprentice Name Role Phone None Primary Care Provider Unavailabl e Encounter Details Date Type Department Care Team (Latest Contact Info) Description 06/20/2022 3:16 PM EDT - 06/20/2022 9:45 PM EDT [place] [address] Kaila Castellanos MD [facility] OBSTETRICS [place] [address] Chest pain on breathing Discharge Disposition: Home Social History Tobacco Use [...] Sign Reading Time Taken Comments Blood Pressure 120/74 06/20/2022 8:09 PM EDT Pulse 80 06/20/2022 8:09 PM EDT Temperature 36.6 ??C (97.9 ??F) 06/20/2022 8:09 PM ED T Respiratory Rate 16 06/20/2022 8:09 PM EDT Oxygen Saturation 99% 06/20/2022 8:10 PM EDT Inhaled Oxygen Concentration - - Weight - - Height - - Body Mass Index - - documented in this encounter Discharge Instructions * Discharge Instructions* Nevaeh Travis RN - 06/20/2022 9:33 [place] [address] [facility] Aniya Luque 06/20/22 9:33 PM Following your visit to [facility] Triage Call your doctor or range scientist for: Seizure (call 911) Chest pain Shortness of breath Headache which isn't relieved with Tylenol Headache with visual changes Abdominal pain Swelling to hands and face A temperature at or above 100.4F Nausea or vomiting Gestation - under 37 weeks Call your doctor or range scientist if: You experience any menstrual like cramping [...] a vaginal exam in your doctor's or range scientist's office you should not bleed as much [...] over 37 weeks Call your doctor or range scientist if: You are having painful contractions/abdominal cramps [...] a vaginal exam in your doctor's or range scientist's office you should not bleed as much [...] dehydration. Keep your regularly scheduled doctor or range scientist appointment. Vaccination If you received the Measles, Mumps, and Rubella (MMR) vaccine, varicella vaccine, or Hepatitis A vaccine during your hospitalization make sure to discuss this with your OB provider or your PCP at your next visit. You may need a second dose of the vaccine to receive effective vaccine protection. Your [facility] Provider can be reached during office hours at [facility] AFTER OFFICE HOURS: Call and ask for the supply chain analyst or range scientist pony worker documented in this encounter Medications at Time of Discharge Medication Sig Dispensed Refills Start Date End Date fluticasone propionate (Flonase) 50 mcg/actuation [place], SuspensionIndications :allergic rhinitis 1 spray by Each [...] as of this encounter Progress Notes * Nevaeh Travis RN - 06/20/2022 9:45 PM EDT Patient discharged from the unit in stable condition after discharge instructions/labor precautionswere reviewed. Paperwork given to patient and all questions were answered. NST was reactive. Patient ambulated off the unit without any signs of distress. * Johan Rangel MD - 06/20/2022 9:27 PM EDT Care of patient assumed from day team. In summary, this is a 36 y.o. who presents at 32w0d with respiratory symptoms. History notable for cHTN, asthma, cigarette smoking, chest pain hx with??11/04-??admission for cardiac arrest thought to be due to severe coronary vasospasm (see??05/14/2022??Cardiology ??and Anesthesiology notes), left sided ICD (defibrillator) placed 10/2021, s/p reassuring cardiac echo on 04/26/2022,??boderline personality disorder, PTSD depression and anxiety. Work-up: - CXR: IMPRESSION Ill-defined airspace opacity in the right lower lobe, likely pneumonia. - respiratory panel: pending - Labs: Lab Results Component Value Date CK 486 (H) 11/16/2021 TROPONINT <0.01 06/20/2022 Last wbc, hgb, hct plt Recent Labs 06/20/22 1624 WBC 16.8* HGB 11.2* HCT 33.9* Last 3 Lytes Recent Labs 06/20/22 1624 01/16/22 1547 11/16/21 1232 NA 135 137 138 K 3.6 3.9 4.3 CL 99 100 103 CO2 24 23 24 BUN 8 10 16 CREATININE 0.85 0.81 0.91 Component Value Date/Time SPGRAVITYUA 1.019 06/20/2022 1629 PHUADIP 7.5 06/20/2022 1629 PROTEINUADIP Trace (A) 06/20/2022 1629 GLUCOSEU Negative 06/20/2022 1629 KETONESUA Negative 06/20/2022 1629 UROBILIUADIP Normal 06/20/2022 1629 BLOODUADIP Negative 06/20/2022 1629 NITRATEUA Negative 06/20/2022 1629 LEUKOESTERUA Negative 06/20/2022 1629 WBCUA 2 06/20/2022 1629 BILIRUBINUA Negative 06/20/2022 1629 NST Fetus A 06/20/2022 HR (beats/min) 130 HR Variability moderate (amplitude range 6 to 25 bpm) HR Accelerations present HR Decelerations none Contraction Frequency (Minutes) 2-3/hour Nonstress Test Interpretation Reactive, >32 weeks: two 15 bpm accelerations lasting 15 seconds Overall Impression Reassuring for gestational age Comments FHT discontinuous at times but clearly reactive AP: Aniya Luque is a 36 y.o. at 32w0d who presents with constellation of upper respiratory symptoms in the setting of likely infectious pneumonia. Evaluated by medicine consult team. Recommended antibiotic course for treatment of pneumonia. Did not feel patient requires inpatient admission or treatment with IV antibiotics. Patient with multiple reported antibiotic allergies. Medical record reviewed: patient previously tolerated cephalosporins without incident. Per patient, possibly tolerated amoxicillin in the past although unable to confirm despite thorough chart review including CareEverywhere. Given her multiple medical co- morbidities, suspect formal allergy testing is indicated prior to treatment with PCN. Plan: - cefpedoxime 200mg BID x5 day course + additional 3 day course of azithromycin 500mg daily for 3 days - famotidine 20mg BID for GERD symptoms - consider referral to ID for allergy testing - message sent to clinic RN to arrange close follow-up for patient on Friday or Friday of next week. Patient seen by Dr. Desai with whom the plan was formulated. Johan Rangel MD PGY3 06/20/22 Associated attestation - Lorelei Desai MD - 06/21/2022 5:34 AM EDT I have seen and evaluated the patient and reviewed the above history with Drs. Chiang and Randa. I agree with the details as written. The assessment and plan were formulated in discussion with me and I agree with them as documented. 36 year old with complex pmhx as outlined. Pt describes that she has had a cough for about two weeks. She describes feeling a bit more short of breath than her baseline. She went to [facility] and had evaluation when her symptoms first began. At that time she had an exam, but no CXR. She was diagnosed with bronchitis and treated with azithromycin. She feels things improved for a few days but have worsened again. She also has daily reflux symptoms. She has taken famotidine in the past with good effect but stopped it because she thought she wasn't supposed to take it regularly. She also has some problems with back ache and general pelivic discomfort. On exam she talks in full sentences and does not appear SOB. Lung exam with moderate excursion. Heart regular Abdomen gravid NT Cervical check as per Dr. Chiang. Labs as outlined. A: pneumonia based on cough, elevated wbc and CXR Test for viral respiratory infection negative. GERD Likely MSK back pain. No evidence UTI P: Given she has persistent symptoms despite course of azithromycin, we obtained medicine consult. They initially recommended Augmentin but given PCN all of uncertain hx, we discussed use of cefpodoxime Discussed reasonable to reinstitute famotidine for GERD sx. Comfort measures for back pain discussed. LORELEI DESAI MD * Lorelei Desai MD - 06/20/2022 7:54 PM EDT 06/20/221947 Nonstress Test, Fetus A HR (beats/min) 130 HR Variability moderate (amplitude range 6 to 25 bpm) HR Accelerations present HR Decelerations none Contraction Frequency (Minutes) 2-3/hour Nonstress Test Interpretation Reactive, >32 weeks: two 15 bpm accelerations lasting 15 seconds Overall Impression Reassuring for gestational age Comments FHT discontinuous at times but clearly reactive NST Times NST Start Time 1825 NST Stop Time 1946 I personally reviewed the heart rate tracing. The NST is reactive and the tracing is reassuring. LORELEI DESAI MD * Jennifer Chiang MD - 06/20/2022 4:24 PM EDT OB Triage Note 06/20/2022 5:58 PM Patient ID: Aniya Luque is a 36 y.o. at 32w0d presenting for concern for back pain, SOB, chest pain, feeling unwell. c/b cHTN, asthma, cigarette smoking, chest pain hx with 11/04- admission for cardiac arrest thought to be due to severe coronary vasospasm (see 05/14/2022 Cardiology and Anesthesiologynotes), left sided ICD (defibrillator) placed 10/2021, s/p reassuring cardiac echo on 04/26/2022, boderline personality disorder, PTSD depression and anxiety. Subjective: Pt states that for the past day she has had low back pain, sometimes w/ abdominal tightening. Pt isnot sure if it feels like labor contractions. She endorses increased work of breathing, stating that she just finished a Z-pack (rx by providers in [place]) for bronchitis 2-3 days ago and continues to have whitish sputum with productive cough. She also endorses some chest pain. She feels numbness and tingling in her hands. She endorses diarrhea for the past day. She denies fevers, but feels some chills. She endorses decreased appetite for the past day and decreased po intake. Pt endorses anxiety, stating she took Klonopin this morning (has rx for 1 mg TID prn). Pt states no one else sick at home (lives w/ fiance). Feels safe at home. Pt states had Covid 1 year ago 10/2021 time-frame. Not vaccinated for Covid. OB ROS: endorses FM, denies VB or LOF like ROM but has noted increased mucousy discharge. Cramping as noted above. - Preeclampsia signs and symptoms: None - ROS: see extensive ROS above; in addition, denies dysuria or hematuria. Objective: Last value Range last 12 hrs Temperature Temp: 36.8 ??C (98.2 ??F) Temp: [36.8 ??C (98.2 ??F)] Heart Rate Heart Rate: (!) 104 Heart Rate: [104-110] Blood Pressure BP: 113/76 BP: (113-125)/(76-82) Respiratory Rate Resp: 16 Resp: [16] SpO2 SpO2: 98 % SpO2: [97 %-98 %] Physical Exam: Gen: well appearing female grimacing but in no acute distress Neuro: Clear, fluent, logical speech. Ambulates without difficulty. CN grossly intact. CV: Regular rate and rhythm, no murmurs, rubs or gallops. Pulm: breath sounds heard in all garcia, clear to auscultation bilaterally. Abd: gravid Ext: warm, well-perfused. No LE edema. Back: No CVA tenderness. Tender along para-spinal muscles. No skin changes seen on lower back (no ecchymosis, rashes, or petechia) Psych: Normal mood and affect. Normal thought content. Sterile Speculum Exam (SSE); not indicated Cervical Exam: Closed, posterior FHR Evaluation: Baseline FHR: 150, moderate variability with intermittent periods of minimal variability, accelerations present, decelerations absent [place]: q 5-10 min, irregular Labs ordered: CBC, CMP, troponin - pending Covid and URI panel - pending collection U/A - collected, pending CXR - ordered, pending EKG - ordered Assessment/Plan: Aniya Luque is a 36 y.o. at 32w0d presenting for concern for back pain, SOB, chest pain, feeling unwell. c/b cHTN, asthma, cigarette smoking, chest pain hx with 11/04- admission for cardiac arrest thought to be due to severe coronary vasospasm (see 05/14/2022 Cardiology and Anesthesiologynotes), left sided ICD (defibrillator) placed 10/2021, s/p reassuring cardiac echo on 04/26/2022, boderline personality disorder, PTSD depression and anxiety. Pt presenting with constellation of symptoms as noted above, including chest pain w/ history of cardiac arrest w/ ICD in place, dyspnea with recent completion of Z-pack abx for bronchitis in setting of 3 pack cigarettes/week smoking history, diarrhea, decreased appetite and po intake, back pain, chills. SVE reassuring against PTL given cervix closed though pt does have contractions noted on monitor. Vitals notable for tachycardia otherwise wnl, pt afebrile. Benign physical exam. Ordered for 500mL NS bolus. Labs pending as above, as well as URI panel including Covid, CBC, CMP and troponin pending, and EKG and CXR pending. Given change of shift, this patient's plan of care was signed out to [facility] night team, including the following ongoing evaluation: ??? 500 mL NS IVF bolus ordered ??? F/u Labs: (CBC, CMP, added troponin), CXR, EKG, Covid/URI panel ??? U/A With trace protein otherwise did not reflex to culture Discussed w/ Dr. Castellanos, attending medical office coordinator and MFM, and signed out to [facility] night team. Jennifer Chiang MD PGY3 06/20/2022 documented in this encounter Miscellaneous Notes * Consult Note - Romana Singh MD - 06/20/2022 8:40 PM EDT Images from the original note were not included. Internal Medicine Initial Consult Note Admit date: Hospital day: Service: Primary Attending Consult Attending 06/20/2022 0 OB MD Alfred Trujillo MD Reason for Consult: community acquired pneumonia in medically complex HPI: Aniya Luque is a 36 year old female, 32 weeks , with a medical history of hypertension, asthma, cigarette smoking, chest pain hx with??11/04- ??admission for cardiac arrest thought dafne due to severe coronary vasospasm (see??05/14/2022??Cardiology ??and Anesthesiology notes), left sided ICD (defibrillator) placed 10/2021, s/p reassuring cardiac echo on 04/26/2022, ??boderline personality disorder, PTSD, depression, and anxiety. Aniya has been having respiratory symptoms including chest heaviness and subjective shortness of breath for about two weeks. She went to [facility] where she was diagnosed with bronchitis and prescribed a Z-pack, which she completed 3-4 days ago. She called the OB clinic at [facility] today for ongoing symptoms and was brought in for evaluation. Work up included and EKG which appeared unchanged from prior, a negative troponin, WBC elevated to 16.8, and a chest xray with consolidation concerning for pneumonia in the right lower lobe. Given complexity of patient's cardiac history, medicine is consulted for recommendations regarding best course of treatment for pneumonia and necessity for admission. On interview, Aniya endorses chest heaviness and shortness of breath. She states she has chest pain, which feels like her typical GERD, which she treats with Mylanta and viscous lidocaine. She hasn't measured her temperature at home but has had occasional chills over the past 3 days. Since arrival here, she has been afebrile. She was mildly tachycardic on arrival to the low 100s, and received IV fluids. BP has been normotensive, and she is satting in the high 90s on room air. Past Medical History/Problem List Patient Active Problem List Diagnosis Code ??? [...] Cigarette smoker F17.210 ??? Subcutaneous defibrillator implanted 11/12/2021 Z95.810 ??? Recurrent major depressive episodes, moderate F33.1 Past Medical History: Diagnosis Date ??? *History of COVID-19 11/05/2021 ??? Anorexia ??? Anxiety 08/03/2014 ??? Asthma 08/03/2014 ??? Flaherty's palsy ??? Chest pain 01/17/2016 ETT 2013- negative ST III Echo 2013 ??Normal LV size and function, trivial TR, mild PI ??? 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 Depression ??? Headache ??? Hypertension 08/03/2014 Meds: No current facility-administered medications on file prior to encounter. Current Outpatient Medications on File Prior to Encounter Medication Sig Dispense Refill ??? Accu-Chek Guide test strips Strip 1 [...] LIDOCAINE ORALLY THREE TIMES A DAY ??? amLODIPine (Norvasc) 2.5 mg Tablet Take 1 tablet by mouth 2 times daily. 180 tablet 1 ??? clonazePAM (KlonoPIN) 1 mg Tablet Take [...] 0 ??? fluticasone propionate (Flonase) 50 mcg/actuation [place], Suspension 1 spray by Each Nare route [...] Take 1 tablet by mouth as needed. Allergies: Allergies Allergen Reactions ??? Augmentin [Amoxicillin-Pot Clavulanate] Rash Unsure if allergic ??? Ipratropium Other (See Comments) ??? Morphine Other (See Comments) Cannot recall ??? Penicillins Rash ??? Seroquel [Quetiapine] Other (See Comments) Made head feel loopy. Past Surgical History Past Surgical History: Procedure Laterality Date ??? DILATION AND CURETTAGE OF UTERUS x2 ??? PRO UPPER GI ENDOSCOPY, DIAGNOSTIC N/A 01/09/2021 EGD, UPPER GI ENDOSCOPY performed by Dudley Alva MD at [facility] ENDOSCOPY Family History: Family History Problem Relation Age of Onset ??? Migraines Mother ??? Cancer Mother Social History: Social History Tobacco Use ??? Smoking status: Current Every Day Smoker Packs/day: 1.00 Years: 15.00 Pack years: 15.00 Types: Cigarettes ??? Smokeless tobacco: Never Used ??? Tobacco comment: Smokess 0.5 - 1 packs of cigarettes daily x 13 - 14 years. Vaping Use ??? Vaping Use: Never used Substance Use Topics ??? Alcohol use: Not Currently ??? Drug use: Not Currently Comment: CBD as needed Social History Social History Narrative ??? Not on file Vitals: Last value Range last 24 hrs Temperature Temp: 36.6 ??C (97.9 ??F) Temp: [36.6 ??C (97.9 ??F)-36.8 ??C (98.2 ??F)] Heart Rate Heart Rate: 80 Heart Rate: [80-110] Blood Pressure BP: 120/74 BP: (113-125)/(74-82) Respiratory Rate Resp: 16 Resp: [16] SpO2 SpO2: 99 % SpO2: [97 %-99 %] No intake/output data recorded. Examination: General: Pleasant, alert, appropriate, in NAD. HEENT: EOMI, nonicteric, MMM Cardiac: Normal S1 and S2, regular rate and rhythm, with 2/6 systolic murmur appreciated over LUSB. Respiratory: Nonlabored. Clear to auscultation bilaterally with diminished breath sounds over RLL. Ext: No edema, cyanosis, clubbing, Radial and distal pedal pulses 2+ bilaterally Neuro: No focal deficits Skin: No rashs, no lesions, no petechiae Laboratory: Recent Labs 06/20/22 1624 WBC 16.8* HGB 11.2* HCT 33.9* PLATELET 327 Recent Labs 06/20/22 1624 NA 135 K 3.6 CL 99 CO2 24 BUN 8 CREATININE 0.85 Recent Labs 06/20/22 1624 AST 13 ALT 17 ALKPHOS 99 BILITOT <0.2* Recent Labs 06/20/22 1624 CALCIUM 9.1 MAGNESIUM 0.77 No results for input(s): INR, PT, PTT in the last 168 hours. Recent Labs 06/20/22 1624 TROPONINT <0.01 No results for input(s): POCGLU in the last 168 hours. Microbiology: Microbiology Results (Last 30 days) No results found for the last 720 hours. Diagnostic Studies: XR Chest PA & Lateral (Generic) Final Result Ill-defined airspace opacity in the right lower lobe, likely pneumonia. I have personally reviewed the image(s) and the resident's interpretation and agree with the findings, EMILI BAI MD at 06/20/2022 6:03 PM Thank you for letting us participate in the care of this patient. If you are a health care provider and have any questions regarding this report, please contact the number below. For patients who have questions please contact the health managed care analyst that requested your imaging first. Assessment: Aniya Luque is a 36 year old female, 32 weeks , with a medical history of hypertension, asthma, cigarette smoking, chest pain hx with??11/04- ??admission for cardiac arrest thought dafne due to severe coronary vasospasm (see??05/14/2022??Cardiology ??and Anesthesiology notes), left sided ICD (defibrillator) placed 10/2021, s/p reassuring cardiac echo on 04/26/2022, ??boderline personality disorder, PTSD, depression, and anxiety presenting with community acquired pneumonia. Hospital medicine is consulted for evaluation and recommendations for treatment given the patient'scomplex medical history. Given the patient's clinical stability and O2 saturations > 95% with ambulation, she can be discharged on oral antibiotics with a plan for close follow up. Typically wouldtreat with Augmentin BID + Azithromycin. The patient has an unclear Augmentin allergy documented inher chart, so will proceed with Cefpodoxime + azithromycin. She should be given strict ED return precautions including shortness of breath, worsening chest pain, fever, chills, and inability to tolerate PO. Recommendations: 1. Cefpodoxime 200 mg BID for 5 days 2. Azithromycin 500 mg qd for 3 days 3. Discussed case with MFM attending pony worker, he will arrange follow up with OB clinic early next week as the patient does not have a PCP Case was discussed with medicine consult attending, Dr. Aguayo. Consult service will continue to follow patient. X Recommendations are above, please page if further consultation required. Romana Singh MD Internal Medicine, PGY3 VARUN Pager # [phone] documented in this encounter Plan of Treatment Upcoming Encounters Date Type Department Care Team (Late st Contact Info) Description 09/21/2024 8:15 AM EST Routine Obstetrics [place] [address] Emili Cabrera MD [facility] [address] [place]NAL [place] [address] 09/26/2024 6:00 PM EST Appointment [facility] [place] [phone] 10/16/2024 [place] [phone] Dudley Aguilar MD [facility] DR OBSTETRICS [place] [address] 11/08/2024 10:00 AM EST Hospital Encounter Non[place] [address] Arrived documented as of this encounter Procedures Procedure Name Priority Date/Time Associated Diagnosis Comments HC RESPIRATORY VIRUS PANEL BY PCR Routine 06/20/2022 6:13 PM EDT EKG 12-LEAD STAT 06/20/2022 6:03 PM EDT Chest pain on breathing XR CHEST PA AND LATERAL STAT 06/20/2022 5:16 PM EDT URINALYSIS MICROSCOPIC EXAM Routine 06/20/2022 4:29 PM EDT URINALYSIS WITH REFLEX CULTURE Routine 06/20/2022 4:29 PM EDT HEMOGRAM Routine 06/20/2022 4:24 PM EDT DIFFERENTIAL, AUTOMATED Routine 06/20/2022 4:24 PM EDT HC CBC,PLT & AUTO DIFF Routine 4:24 PM EDT TROPONIN Routine 06/20/2022 4:24 PM EDT MAGNESIUM Routine 06/20/2022 4:24 PM EDT COMPREHENSIVE METABOLIC PANEL Routine 06/20/2022 4:24 PM EDT documented in this encounter Results * Respiratory Panel PCR (06/20/2022 6:13 PM EDT) Respiratory Panel Source [employer] [facility] Respiratory Panel PCR Negative Negative [facility] Comment: Respiratory Panels are performed on the Evermind, using multiplexed PCR nucleic acid detection. ??Negative results do not preclude respiratory infection and should not be used as the sole basis for diagnosis, treatment or other management decisions. Adenovirus Not Detected Not Detected [facility] Coronavirus HKU1 Not Detected Not Detected [facility] Coronavirus NL63 Not Detected Not Detected [facility] Coronavirus 229E Not Detected Not Detected [facility] Coronavirus OC43 Not Detected Not Detected [facility] SARS-CoV-2 Not Detected Not Detected [facility] Comment: Testing for SARS-CoV-2 (Severe acute respiratory syndrome coronavirus 2) to aid in the diagnosis of COVID-19 is performed using the [employer] Respiratory Panel 2.1 ([employer]) as authorized by the FDA issued Emergency Use Authorization (EUA). This panel also tests for multiple other viral and bacterial pathogens. This assay is intended for In-vitro Diagnostic (IVD) use with nasopharyngeal swabs in viral transport media. The assay is performed based on the instructions for use and additional guidance provided by the FDA. Testing is performed in laboratories within the [facility], each of which is certified under the [...] fact sheets at the following FDA website: https://www.fda.gov/medical-devices/fwsxrmtykak-zqjsfgt-5108-rcbbj-45-uyifupxoa- use-a lnzbxrffeexjh-rlfrjtw-taawhrf/vcsqq-boghbatpnxk-vpmo Human Metapneumovirus Not Detected Not Detected [facility] Human Rhinovirus/Enterov irus Not Detected Not Detected [facility] Influenza A Not Detected Not Detected [facility] Influenza B Not Detected Not Detected [facility] Parainfluenza 1 Not Detected Not Detected [facility] Parainfluenza 2 Not Detected Not Detected [facility] [facility] Parainfluenza 3 Not Detected Not Detected [facility] Parainfluenza 4 Not Detected Not Detected [facility] Respiratory Syncytial Virus Not Detected Not Detected [facility] Chlamydophila pneumoniae Not Detected Not Detected [facility] Mycoplasma pneumoniae Not Detected Not Detected [facility] Nasopharyngeal Swab 06/20/20 6:13 PM EDT 06/20/2022 7:09 PM EDT Narrative Resulting Agency Comment Spec In Lab Kaila Castellanos MD MICROBIOLOGY - GEN ERAL ORDERABLES Performing Organization Address City/[facility]/ZIP Co de Phone Number [facility] [place] [place] [address] * EKG 12 Lead (06/20/2022 6:03 PM EDT) Ventricular rate 93 BPM MUSE SYSTEM Atrial Rate 93 BPM MUSE SYSTEM P-R Interval 126 ms MUSE SYSTEM QRS Duration 80 ms MUSE SYSTEM Q-T Interval 364 ms MUSE SYSTEM QTC Calculated (Bezet) 452 ms MUSE SYSTEM Calculated P Ashley 40 degrees MUSE SYSTEM Calculated R Ashley 10 degrees MUSE SYSTEM Calculated T Ashley 19 degrees MUSE SYSTEM INTERPRETATION Normal sinus rhythm Minimal voltage criteria for LVH, may be normal variant ( Possible Anterior infarct , age undetermined Abnormal ECG When compared with ECG of 26-MAR-2022 10:28, No significant change was found Confirmed by MD Bonny, Nik Estrada ([id number]) on 06/21/2022 1:55:03 PM MUSE SYSTEM 06/20/2022 6:03 PM EDT 06/21/2022 1:55 PM EDT Kaila Castellanos MD ECG ORDERABLES MUSE SYSTEM * XR Chest PA & Lateral (Generic) (06/20/2022 5:16 PM EDT) Anatomical Region Laterality Modality Chest N/A Digital Radiogra phy Impressions 06/20/2022 6:03 PM EDT Ill-defined airspace opacity in the right lower lobe, likely pneumonia. I have personally reviewed the image(s) and the resident's interpretation and agree with the findings, EMILI BAI MD at 06/20/2022 6:03 PM Thank you for letting us participate in the care of this patient. ??If you are a health care provider and have any questions regarding this report, please contact the number below. ??For patients who have questions please contact the health managed care analyst that requested your imaging first. ? Narrative 06/20/2022 6:03 PM EDT EXAMINATION: XR CHEST PA AND LATERAL (GENERIC) CLINICAL HISTORY: cough, tx outpatient for bronchitis TECHNIQUE: PA and lateral views of the chest COMPARISON: Chest radiograph 11/27/2021 FINDINGS: Left lateral chest wall pulse generator with single vertically oriented intact lead in the retrosternal region. Ill-defined airspace opacity in the right lung base identified on the frontal view. This region is obscured on the lateral view by the pulse generator. No pleural effusion or pneumothorax. The cardiomediastinal silhouette, charline and pulmonary vascular markings are within normal limits. No acute osseous abnormality. Procedure Note Emili Bai MD - 06/20/2022 EXAMINATION: XR CHEST PA AND LATERAL (GENERIC) CLINICAL HISTORY: cough, tx outpatient for bronchitis TECHNIQUE: PA and lateral views of the chest COMPARISON: Chest radiograph 11/27/2021 FINDINGS: Left lateral chest wall pulse generator with single vertically orientedintact lead in the retrosternal region. Ill-defined airspace opacity in the rightlung base identified on the frontal view. This region is obscured on thelateral view by the pulse generator. No pleural effusion or pneumothorax. The cardiomediastinal silhouette, charline and pulmonary vascular markings arewithin normal limits. No acute osseous abnormality. IMPRESSION Ill-defined airspace opacity in the right lower lobe, likely pneumonia. I have personally reviewed the image(s) and the resident's interpretationand agree with the findings, EMILI BAI MD at 06/20/2022 6:03 PM Thank you for letting us participate in the care of this patient. If youare a health care provider and have any questions regarding this report,please contact the number below. For patients who have questions please contactthe health managed care analyst that requested your imaging first. Kaila Castellanos MD IMG DX ORDERABLES * Urinalysis Microscopic Exam (06/20/2022 4:29 PM EDT) RBC, Urine 3 0 - 4 /HPF [facility] WBC, Urine 2 0 - 5 /HPF [facility] Squamous Epithelial Cells Raw Data, Urine 2 <=4 /HPF [facility] Clean Catch Urine 06/20/2022 4:29 PM EDT 06/20/2022 5:35 PM EDT Narrative Resulting Agency Comment Spec In Lab Jennifer Chiang MD URINE ORDERAB LES [facility] [place] [address] * (ABNORMAL) Urinalysis with reflex Culture (06/20/2022 4:29 PM EDT) Glucose, Urine Dipstick Negative Negative mg/dL [facility] Protein, Urine Dipstick Trace(A) Negative mg/dL [facility] Bilirubin, Urine Dipstick Negative Negative mg/dL [facility] Comment: Clinical correlation required for positive Urine Bilirubin results as false positive may occur with some drugs and drug related products. If a false positive is suspected a serum total bilirubin should be considered if clinically indicated. Urobilinogen, Urine Dipstick Normal Normal mg/dL [facility] pH, Urn (dipstick) 7.5 5.0 - 8.0 [facility] Blood, Urine Dipstick Negative Negative mg/dL [facility] Ketone, Urine Dipstick Negative Negative mg/dL [facility] Nitrite, Urine Dipstick Negative Negative [facility] Leukocytes, Urine Dipstick Negative Negative [facility] Appearance, Urine Dipstick Clear Clear [facility] Specific [place] Urine Automated 1.019 1.005 - 1.030 [facility] Color, Urine Dipstick Yellow Yellow [facility] Reflex to Culture No [facility] Clean Catch Urine 06/20/2022 4:29 PM EDT 06/20/2022 5:35 PM EDT Narrative Resulting Agency Comment Spec In Lab Kaila Castellanos MD URINE ORDERABLES Performing Organization Address City/[facility]/ZIP Co de Phone Number [facility] [place] [place] [address] * Magnesium (06/20/2022 4:24 PM EDT) Pathologist [facility] Magnesium 0.77 0.69 - 1.07 mmol/L [facility] Blood Venous Draw / Unknown 06/20/2022 4:24 PM EDT 06/20/2022 5:38 PM EDT Narrative Resulting Agency Comment Spec In Lab Romana Singh MD CHEMISTRY ORDERABLES Performing Organization Address City/[facility]/ZIP Co de Phone Number [facility] [place] [address] * Troponin (06/20/2022 4:24 PM EDT) Troponin-T <0.01 0.00 - 0.00 ng/mL [facility] Comment: The 99th percentile for Troponin T is less than 0.01 ng/mL, any detectable cTnT concentration using this assay should be considered elevated. According to the third universal definition of myocardial infarction the following criteria with a clinical presentation consistent with acute myocardial ischemia meets the diagnosis for a myocardial infarction (TN). Detection of a rise and/or fall of cTnT, with at least one value greater than the 99th percentile (> or = 0.01) and with at least one of the following ?? Symptoms of ischemia ?? New or presumed new significant PT-gtvliaz-[id number] wave (ST-T) changes or new left bundle [...] additional sample may be indicated. Reference: Third [place] Definition of Myocardial Infarction. Journal of the [place] [employer] 2012;60:1581-98 Blood Venous Draw / Unknown 06/20/2022 4:24 PM EDT 06/20/2022 5:38 PM EDT Narrative Resulting Agency Comment Spec In Lab Johan Rangel MD CHEMISTRY ORDERABLES [facility] [place] [place] [address] * (ABNORMAL) Differential, Automated (06/20/2022 4:24 PM EDT) Neutrophil % 66.5 % [facility] Neutrophil Absolute 11.14(H) 1.70 - 6.10 x10(3)/mc L [facility] Lymph % 22.3 % [facility] Lymphocytes Abs 3.7(H) 0.9 - 3.2 x10(3)/mc L [facility] Monocyte % 6.4 % [facility] Monocyte Abs 1.1(H) 0.3 - 0.9 x10(3)/mc L [facility] Eos % 2.7 % [facility] Eosinophils Abs 0.5(H) 0.0 - 0.4 x10(3)/[facility] Basophil % 0.4 % [facility] Baso Absolute 0.1 0.0 - 0.1 x10(3)/[facility] Immature Gran % 1.70 % [facility] Comment: Immature granulocytes(IG's)percentage and absolute count will include metamyelocytes, myelocytes, and promyelocytes. Blood smears from CBCs yielding IG's will be scanned manually for concordance. If this scan disagrees with the automated IG or if promyelocytes are noted, a manual differential will be performed. Immature Gran Absolute 0.29(H) 0.00 - 0.04 x10(3)/[facility] Blood 06/20/2022 4:24 PM EDT 06/20/2022 5:36 PM EDT Narrative Resulting Agency Comment Spec In Lab Jennifer Chiang MD HEMATOLOGY OR DERABLES [facility] [place] [place] [address] * (ABNORMAL) Hemogram (06/20/2022 4:24 PM EDT) White Blood Cell 16.8(H) 4.0 - 9.5 x10(3)/[facility] Red Blood Cell 3.77(L) 4.00 - 5.21 x10(6)/[facility] Hemoglobin 11.2(L) 11.7 - 15.5 g/dL [facility] Hematocrit 33.9(L) 35.7 - 45.8 % [facility] Mean Cell Volume 89.9 82.6 - 94.4 fL [facility] Mean Cell Hemoglobin 29.7 27.1 - 32.0 pg [facility] Mean Cell Hemoglobin Concentration 33.0 31.7 - 35.0 g/dL [facility] Platelet 327 145 - 357 x10(3)/mc L [facility] RDW Standard Deviation 55.0(H) 37.0 - 46.0 fL [facility] RDW coefficient of variation 17.0(H) 11.5 - 14.1 % [facility] Mean Platelet Volume 11.8 7.6 - 12.9 fL [facility] NRBC% auto 0.0 % [facility] NRBC Absolute 0.000 0.000 - 0.000 x10(3)/mc L [facility] Blood 06/20/2022 4:24 PM EDT 06/20/2022 5:36 PM EDT Narrative Resulting Agency Comment Spec In Lab Jennifer Chiang MD HEMATOLOGY OR DERABLES Performing Organization Address City/[facility] Co de Phone Number [facility] [place] [place] [address] * (ABNORMAL) Comprehensive metabolic panel (non-fasting) (06/20/2022 4:24 PM EDT) Glucose 84 65 - 199 mg/dL [facility] Comment:Diabetes: >=200 mg/d L plus symptoms Blood Urea Nitrogen 8 8 - 18 mg/dL [facility] Creatinine 0.85 0.70 - 1.20 mg/dL [facility] Sodium 135 135 - 145 mmol/L [facility] Potassium 3.6 3.5 - 5.0 mmol/L [facility] Comment: Please note: ??Patients with WBC >100,000 may have falsely elevated Potassium levels. ??For accurate Potassium quantification in these patients send serum separator tube (gold top) for subsequent determinations. ??Contact the Clinical Chemistry Laboratory if there are any questions. Chloride 99 98 - 107 mmol/L [facility] Carbon Dioxide 24 22 - 31 mmol/L [facility] Anion Gap 12 5 - 15 mmol/L [facility] Calcium 9.1 8.5 - 10.5 mg/dL [facility] Protein, Total 6.9 6.1 - 8.0 g/dL [facility] Albumin 3.9 3.2 - 5.2 g/dL [facility] Aspartate Aminotransferase 13 0 - 30 unit/L [facility] Alanine Aminotransferase 17 0 - 30 unit/L [facility] Alkaline Phosphatase 99 35 - 105 unit/L [facility] Bilirubin, Total <0.2(L) 0.2 - 1.3 mg/dL [facility] Est Glomerular Filtration Rate 90 >=60 mL/min/1. 73 m?? [facility] Comment: This patient's estimated [...] and symptoms in addition to eGFR. Blood 06/20/2022 4:24 PM EDT 06/20/2022 5:36 PM EDT Narrative Resulting Agency Comment Spec In Lab Kaila Castellanos MD CHEMISTRY ORDERABL ES [facility] [place] [place] [address] documented in this encounter Visit Diagnoses Diagnosis Chest pain on breathing Painful respiration documented in this encounter Administered Medications Inactive Administered Medications - up to 3 most recent administrations Medication Order MAR Action Action Date Dose Rate Site azithromycin (Zithromax) tablet 500 mg 500 mg, Oral, DAILY, First dose on Jenelle 06/20/22 at 2145, Until Discontinued, Routine, Indication for (Active or Suspected): Pneumonia (Community) Given 06/20/2022 9:28 PM EDT 500 mg famotidine (Pepcid) tablet 20 mg 20 mg, Oral, ONCE, 1 dose, On Jenelle 06/20/22 at 2000, STAT Given 06/20/2022 7:30 PM EDT 20 mg lactated Ringers 500 mL IV bolus Intravenous, ONCE, 1 dose, On Jenelle 06/20/22 at 1715 New Bag 06/20/2022 5:31 PM EDT lidocaine (Xylocaine) 1% (10 mg/mL) injection 3 mg 3 mg (0.3 mL), Subcutaneous, ONCE PRN, 1 dose, Starting on Jenelle 06/20/22 at 1622, Until Fri06/21/22 at 0004, for discomfort with PIV insertion, Routine sodium chloride 0.9 % (flush) (BD PosiFlush Normal Saline 0.9) flush 5 mL 5 mL, Intravenous, 2 TIMES DAILY, First dose on Jenelle 06/20/22 at 2100, Until Discontinued, Routine sodium chloride 0.9 % (flush) (BD PosiFlush Normal Saline 0.9) flush 5-20 mL 5-20 mL, Intravenous, EVERY 1 MIN PRN, Starting on Jenelle 06/20/22 at 1622, Until Fri06/21/22 at 0004, flush, Flush pertains to all indwelling lines. Flush per protocol found in the job aid using the link provided on this medication record., Routine documented in this encounter Active and Recently Administered Medications Times are shown in EDT. Scheduled Medication Order 06/18/2022 06/19/2022 06/20/2022 azithromycin (Zithromax) tablet 500 mg 500 mg, Oral, DAILY, First dose on Jenelle 06/20/22 at 2145, Until Discontinued, Routine, Indication for (Active or Suspected): Pneumonia (Community) 2127 (Given - Provid er: Nevaeh Travis RN) famotidine (Pepcid) tablet 20 mg (COMPLETED) 20 mg, Oral, ONCE, 1 dose, On Jenelle 06/20/22 at 2000, STAT 1930 (Given - Provid er: Kimi Ahmadi RN) lactated Ringers 500 mL IV bolus (COMPLETED) Intravenous, ONCE, 1 dose, On Jenelle 06/20/22 at 1715 1731 (New Bag - Prov ider: Kimi Ahmadi RN) sodium chloride 0.9 % (flush) (BD PosiFlush Normal Saline 0.9) flush 5 mL 5 mL, Intravenous, 2 TIMES DAILY, First dose on Jenelle 06/20/22 at 2100, Until Discontinued, Routine 2100 (Due) PRN Medication Order 06/18/2022 06/19/2022 06/20/2022 lidocaine (Xylocaine) 1% (10 mg/mL) injection 3 mg 3 mg (0.3 mL), Subcutaneous, ONCE PRN, 1 dose, Starting on Jenelle 06/20/22 at 1622, Until Fri06/21/22 at 0004, for discomfort with PIV insertion, Routine sodium chloride 0.9 % (flush) (BD PosiFlush Normal Saline 0.9) flush 5-20 mL 5-20 mL, Intravenous, EVERY 1 MIN PRN, Starting on Jenelle 06/20/22 at 1622, Until Fri06/21/22 at 0004, flush, Flush pertains to all indwelling lines. Flush per protocol found in the job aid using the link provided on this medication record., Routine documented in this encounter Additional Health Concerns Infection Onset Date Last Indicated Resolved Time Rule Out Respiratory 06/20/2022 06/20/2022 022 11:02 PM EDT Rule Out COVID-19 06/20/2022 06/20/2022 06/20/2022 11:02 PM EDT documented as of this encounter Care Teams Miller Apprentice Relationship Specialty Start Date End Date None None PCP - General 05/30/22 09/28/23 documented as of this encounter
--- OUTSIDE RECORDS SUMMARY | 2024-09-20 11:06 | XMS_ITS | Encounter Summary ---
Author Organization [facility] [address] Care Team Providers Care Mortgage Loan Coordinator Name Role Phone None Primary Care Provider Unavailabl e Encounter Details Date Type Department Care Team (Latest Contact Info) Description 07/11/2022 9:31 PM EDT - 07/11/2022 11:44 PM EDT Hospital [place] [address] [facility] [place] [address] Chest pain, unspecified type Discharge Disposition: Home [...] Sign Reading Time Taken Comments Blood Pressure 116/73 07/11/2022 10:39 PM EDT Pulse 77 07/11/2022 10:39 PM EDT Temperature 36.6 ??C (97.9 ??F) 07/11/2022 10:39 PM E DT Respiratory Rate - - Oxygen Saturation - - Inhaled Oxygen Concentration - - Weight - - Height - - Body Mass Index - - documented in this encounter Discharge Instructions * Discharge Instructions* Romana Ying RN - 07/11/2022 11:30 [place] [address] [facility] [phone] to contact family doctor to contact house shorer Aniya Luque 07/11/22 11:30 PM Following your visit to [facility] Triage Reason for Visit: No chief complaint on file. Term Gestation - 37 through 42 weeks gestation Notify your provider if: You are having painful contractions/abdominal cramps less than 5 minutes apart for 1 hour walking, resting, or any kind of activity does not make them less painful or go away You have ruptured your membranes Small leakage of fluid or large gush Note appearance of fluid amount color (may be clear, yellowish, green, pea soup-like, blood-tinged, or bloody) time You have noticed a marked decrease in your baby's movement refer to your kick count instructions in the Your Journey book Your baby should move at least 10 times in 2 hours You have had any direct trauma to your abdomen such as a car accident, fall, or impact Gestation - under 37 weeks Notify your provider if: You are feeling any cramping sensations in your abdomen more than 20 minutes apart Macoupin-Alvarez Contractions usually are irregular may get less painful or go away with walking, resting, or any other activities usually felt in the front and do not radiate to the back labor contractions may start irregular in frequency, then become regular and more frequent usually start in the front and radiate to the back. Some women experience pelvic pressure or back pain that may come and go. Resting, walking, and other activities will not take them away or may even make them worse If you are one month before your due date: any abdominal, back or pelvic pressure or pain that comes and goes as much or more than 4 times in an hour. You feeling a leakage of fluid may be a small leak of fluid may be a large gush note the time it started leaking, amount, and color of fluid (clear, yellow, green, pink, red) You notice vaginal bleeding spotting is normal following a vaginal exam in your doctor's or house shorer's office you should not bleed as much as a period You have noticed a marked decrease in your baby's movement refer to your kick count instructions in the Your Journey book Your baby should move at least 10 times in 2 hours You have had any direct trauma to your abdomen such as a car accident, fall, or impact Call your doctor or house shorer if you have the following symptoms: Headache Visual disturbance/spots in front of your eyes/blurry vision Pain under your ribs toward the right side of your abdomen Sudden swelling to your legs or any increase in swelling to your arms and face Pain or bleeding on urination A temperature at or above 100.4F Nausea or vomiting Flu-like symptoms: cough, fever, muscle aches General Instructions Drink plenty of non-caffeinated fluids throughout the day to prevent dehydratio Keep your regularly scheduled doctor or house shorer appointment Your medications: No current facility-administered medications on file prior to encounter. Current Outpatient Medications on File Prior to Encounter Medication Sig Dispense Refill famotidine (Pepcid) 40 mg Tablet Take 1 tablet by mouth 2 times daily. 60 tablet 5 Antacid-Antigas 200-200-20 mg/5 mL Suspension COMBINE 10 MLS WITH LIDOCAINE ORALLY THREE TIMES A DAY clonazePAM (KlonoPIN) 1 mg Tablet Take 1 mg by mouth 3 times daily as needed. fluticasone propionate (Flonase) 50 mcg/actuation [place], Suspension 1 spray by Each Nare route nightly. Substitute OTC if needed Indications: inflammation of the nose due to an allergy 16 g 1 acetaminophen (Tylenol) 500 mg Tablet Take 2 tablets by mouth every 8 hours as needed for Pain. Substitute OTC if needed 60 tablet 1 cefPODOXime (Vantin) 200 mg Tablet Take 1 tablet by mouth 2 times daily. 10 tablet 0 [DISCONTINUED] azithromycin (ZITHROMAX) 500 mg Tablet Take 1 tablet by mouth daily. 2 tablet 0 Accu-Chek Guide test strips Strip 1 each by Other route 3 times daily. Use as instructed Indications: diabetes mellitus 300 strip 3 Accu-Chek Softclix Lancets Misc 1 each by Misc.(Non-Drug; Combo Route) route 3 times daily. Indications: diabetes mellitus 300 each 3 Accu-Chek Guide Glucose Meter Misc 1 each by Misc.(Non-Drug; Combo Route) route daily. Indications:diabetes mellitus 1 each 0 FLUoxetine (PROzac) 20 mg/5 mL (4 mg/mL) Solution daily. lidocaine (Xylocaine) 2 % Solution TAKE 10 ML BY MOUTH EVERY 8 HOURS WITH ANTACID Hydrocortisone 0.5 % Lotion Every 12 hours. [DISCONTINUED] diclofenac (Voltaren) 1 % Gel APPLY A QUARTER SIZED AMOUNT TO PAINFUL AREA ON CHEST TWO TIMES A DAY FOR 14 DAYS vitamin C 500 mg Tablet TAKE ONE TABLET BY MOUTH EVERY DAY cetirizine (ZyrTEC) 10 mg Tablet TAKE ONE TABLET BY MOUTH EVERY DAY fluticasone propionate (Flovent HFA) 110 mcg/actuation HFA Aerosol Inhaler Every 12 hours. ipratropium-albuteroL (Duoneb) 0.5 mg-3 mg(2.5 mg base)/3 mL Solution for Nebulization Every 6 hours. mag/aluminum/sod bicarb/alginc (GAVISCON ORAL) Take by mouth. sucralfate (Carafate) 1 gram Tablet TAKE 1 TABLET BY MOUTH TWICE DAILY ON AN EMPTY STOMACH albuterol 90 mcg/actuation HFA Aerosol Inhaler Inhale 2 puffs into the lungs every 4 hours as needed for Wheezing. Use with spacer calcium carbonate (TUMS) 200 mg calcium (500 mg) Tablet, Chewable Take 1 tablet by mouth as needed. Special instructions/Follow-up Care: Space for patient-specific care or instructions If you have any other questions or concerns please call your provider at their office number documented in this encounter Medications at Time of Discharge Medication Sig Dispensed Refills Start Date End Date fluticasone propionate (Flonase) 50 mcg/actuation [place], SuspensionIndications :allergic rhinitis 1 spray by Each [...] as of this encounter Progress Notes * Romana Ying RN - 07/11/2022 11:22 PM EDT Pt requests to go home and sleep. She said her GEORGE is still there, but she is feeling tired and feels like she could sleep. She has an appointment tomorrow morning at [address] Lockhart at bedside to see the patient and reviewed sx and discharge education. Pt denies questions at this time. * Willow Clifton MD - 07/11/2022 11:14 PM EDT BP Triage Note Patient ID: Aniya Luque is a 37 y.o. female at 35w0d by 08/15/2022, by Last Menstrual Period who presents for a number of concerns, including headache, blurry vision, nausea, chest pain, mild shortness of breath, and intermittent contractions. HPI: Patient presents with her partner who assists in relaying the story. Together they note that for the last three days Aniya has had a number of symptoms, including headache, blurry vision, nausea, chest pain, mild shortness of breath, and intermittent contractions. No specific inciting factor. Has not attempted medical treatment for headaches. In addition to nausea, has been having a moderate amount of diarrhea for the last 2 weeks. Has been able to tolerate most PO though has had decreased PO in the last 2 days. Denies sick contacts. Notes some shortness of breath with exertion which she has had throughout . Chest pain is also persistent and she rates it 6/10, though notes the chest pain is not worse than usual. Denies radiation of pain. Notes she does have a history of anxiety and last took her Clonazepam at 3 pm today; she is prescribed 1 mg TID. Contractions have beenoccurring every 5-6 minutes for the last few hours. Denies vaginal bleeding or leaking of fluid. Not es good movement. Her is notable for: - Chronic Hypertension, [...] CPAP - Anemia, receiving iron infusions at [facility] OB History: OB History 4 Para 2 [...] has ever had a LEEP or cone Medications: Amlodipine 2.5 mg in the AM/5 mg in the PM, Clonazepam 1 mg TID, Famotidine 40 mg BID,iron infusions Allergies: penicillin, seroquel, morphine Social History: + history of tobacco use Objective: Patient Vitals for the past 24 hrs: Temp Pulse BP 07/11/22 2239 36.6 ??C (97.9 ??F) 77 116/73 Gen: AAO, NAD Pulm: no increased work of breathing Abd: gravid, intermittent tightness to abdoman Ext: non-tender, nonedematous Cervical Exam: Dilation: 1 (07/11/22 2255) Effacement: 30 Station: -4 Cervical Position: Posterior Consistency: Soft Coleman Score: 3 OB Examiner: Willow Clifton SSE: deferred NST Fetus A 07/05/2022 HR (beats/min) 140 HR Variability moderate (amplitude range 6 to 25 bpm) HR Accelerations present;greater than/equal to 15 bpm;lasting at least 15 seconds HR Decelerations none Contraction Frequency (Minutes) occassional Nonstress Test Interpretation Reactive, >32 weeks: two 15 bpm accelerations lasting 15 seconds Overall Impression Reassuring for gestational age Comments Reviewed with Dr. Castellanos Results for orders placed or performed during the hospital encounter of 07/11/22 EKG 12 Lead Result Value Ref Range Ventricular rate 76 BPM Atrial Rate 76 BPM P-R Interval 128 ms QRS Duration 76 ms Q-T Interval 390 ms QTC Calculated (Bezet) 438 ms Calculated P [place] 48 degrees Calculated R [place] 25 degrees Calculated T [place] 38 degrees INTERPRETATION Normal sinus rhythm Normal ECG When compared with ECG of 28-JUN-2022 11:24, No significant change was found Assessment/Plan: Aniya Luque is a 37 y.o. with a complex PMH who presented for evaluation of multiple concerns, including headache, blurred vision, chest pain, shortness of breath, and intermittent contractions. EKG WNL, making ischemic event unlikely; vital signs all WNL. Patient notes chest pain is somewhat her baseline and has severe anxiety, which she believes contributes to her chest pain. Givena dose of Clonazepam in triage. Blood pressure WNL, making superimposed preeclampsia an unlikely cause of her headache at this time. Discussed with patient continued follow up and monitoring for her blood pressure. UA WNL. Shortness of breath seems to be baseline for her throughout . In regard to intermittent contractions, patient's cervix is closed, long, and high. Encouraged hydration in the setting of recent loose stools. Patient requested to leave after discussion that there was noindication for lab work or delivery. Given a dose of Tylenol for her headache prior to leaving the hospital. Patient has a follow up appointment tomorrow. Patient counseled on signs and symptoms of labor and discharged to home with instructions to call if she experienced regular painful contractions, decreased movement, vaginal bleeding or loss of fluid. Willow Clifton MD 07/11/2022 11:15 PM Associated attestation - Brielle Lockhart DO - 07/12/2022 8:00 PM EDT Attending Attestation: Patient seen and examined with resident. Documentation reviewed by me personally including history,physical exam findings and plan of care. Aniya is a 37yo @ 35w0d with complicated medicalhistory (cHTN, cardia arrest in Oct 2021, Asthma, Obstructive Sleep Apnea) here with headache. Patient has been seen for similar over multiple visits including chest pain. Stable EKG. Normal range blood pressure. Offered management for headache and took tylenol but did not want to wait for the Reglan, despite not feeling better right now. She understands the risks and return precautions. All questions solicited and answered. Brielle Lockhart DO 07/12/2022 * Romana Ying RN - 07/11/2022 9:38 PM EDT Pt to BP via wheelchair from home. C/O pain in abd x 3 days that radiates to her lower back. Deniesbleeding, not sure about LOF, thinks it could be urine when baby presses on bladder. Thinks thereis decreased FM. She reports a GEORGE, blurred vision, no loss of vision or floaters, and chest pain.GEORGE started 3-4 days+ ago. Tried tylenol, but states that did not work. Last took amlodipine this AMand at 1500 today. Did not take nitro for chest pain today or in the last few days. documented in this encounter Plan of Treatment Upcoming Encounters Date Type Department Care Team (Late st Contact Info) Description 09/21/2024 8:15 AM EST Routine Obstetrics [place] [phone] Emili Cabrera MD [facility] [place] [address] 09/26/2024 6:00 PM EST Appointment [facility] [place] [phone] 10/16/2024 Hospital [place] [phone] Dudley Aguilar MD [facility] DR OBSTETRICS [place] [address] 11/08/2024 10:00 AM EST Hospital Encounter Non-Invasive [place] [phone] Arrived documented as of this encounter Procedures Procedure Name Priority Date/Time Associated Diagnosis Comments EKG 12-LEAD STAT 07/11/2022 10:29 PM EDT Chest pain, unspecified type documented in this encounter Results * EKG 12 Lead (07/11/2022 10:29 PM EDT) Ventricular rate 76 BPM MUSE SYSTEM Atrial Rate 76 BPM MUSE SYSTEM P-R Interval 128 ms MUSE SYSTEM QRS Duration 76 ms MUSE SYSTEM Q-T Interval 390 ms MUSE SYSTEM QTC Calculated (Bezet) 438 ms MUSE SYSTEM Calculated P [place] 48 degrees MUSE SYSTEM Calculated R [place] 25 degrees MUSE SYSTEM Calculated T [place] 38 degrees MUSE SYSTEM INTERPRETATION Normal sinus rhythm Normal ECG When compared with ECG of 28-JUN-2022 11:24, No significant change was found I personally reviewed the tracing and edited the fellows interpretation Confirmed by fellow MD Jeannette, Max ([id number]) on 07/13/2022 12:48:08 PM Confirmed by MD Harish, Graham Alarcon ([id number]) on 07/13/2022 12:50:51 PM MUSE SYSTEM 07/11/2022 10:2 9 PM EDT 07/13/2022 12:50 PM EDT Brielle A Richy DO ECG ORDERABLES MUSE SYSTEM documented in this encounter Visit Diagnoses Diagnosis Chest pain, unspecified type documented in this encounter Administered Medications Inactive Administered Medications - up to 3 most recent administrations Medication Order MAR Action Action Date Dose Rate Site acetaminophen (Tylenol) tablet 975 mg 975 mg, Oral, ONCE, 1 dose, On Jenelle 07/11/22 at 2330, Maximum dose of acetaminophen is 4000 mg from all sources in 24 hours. When ordered for pain, acetaminophen should be given even when other ordered pain medications are indicated. , Routine Given 07/11/2022 11:05 PM EDT 975 mg clonazePAM (KlonoPIN) tablet 1 mg 1 mg, Oral, ONCE, 1 dose, On Jenelle 07/11/22 at 2330, DO NOT SPLIT, CRUSH OR OPEN Regular tablets should be swallowed whole with water. Disintegrating tablets (ODTs) should be placed in mouth; may be swallowed with or without water. May also be dissolved in small volume (~30 mL) of water if going to be administered via feeding tube., Routine Given 07/11/2022 11:06 PM EDT 1 mg documented in this encounter Active and Recently Administered Medications Times are shown in EDT. Scheduled Medication Order 07/09/2022 07/10/2022 07/11/2022 acetaminophen (Tylenol) tablet 975 mg (COMPLETED) 975 mg, Oral, ONCE, 1 dose, On Jenelle 07/11/22 at 2330, Maximum dose of acetaminophen is 4000 mg from all sources in 24 hours. When ordered for pain, acetaminophen should be given even when other ordered pain medications are indicated. , Routine 2305 (Given - Provid er: Romana Ying RN) clonazePAM (KlonoPIN) tablet 1 mg (COMPLETED) 1 mg, Oral, ONCE, 1 dose, On Jenelle 9/22/22 at 2330, DO NOT SPLIT, CRUSH OR OPEN Regular tablets should be swallowed whole with water. Disintegrating tablets (ODTs) should be placed in mouth; may be swallowed with or without water. May also be dissolved in small volume (~30 mL) of water if going to be administered via feeding tube., Routine 2306 (Given - Provid er: Romana Ying RN) documented in this encounter Care Teams Mortgage Loan Coordinator Relationship Specialty Start Date End Date None None PCP - General 05/30/22 09/28/23 documented as of this encounter
--- OUTSIDE RECORDS SUMMARY | 2024-09-20 11:06 | XMS_ITS | Encounter Summary ---
Author Organization [facility] [place] [address] Care Team Providers Care Blocker Heated Metal Forms Name Role Phone None Primary Care Provider Unavailabl e Encounter Details Date Type Department Care Team (Late st Contact Info) Description 05/29/2022 Telephone Obstetrics [place] [phone] Carey Ibarra RN Social History Tobacco Use Types Packs/Day [...] encounter Miscellaneous Notes * Telephone Encounter - Carey Ibarra RN - 05/29/2022 11:26 AM EDT Returned phone call to Aniya Luque, : 1985, GA: 28w6d Primary concern: wanting to schedule next visit. Last seen 04/09/2022. Aniya reports she has been seen in a local ED and at a local OB office in [place] but sheis hoping to be seen by M team again (we are primary OB team). Aniya denies vaginal bleeding, leaking of fluid or regular uterine contractions. Reports + movement reports movements feel differently than prior pregnancies. Aniya reports she has been experiencing intermittent dizziness, shortness of breath and chest pain for which she uses PRN nitroglycerin with + effect. Reviewed precautions including calling 911, presenting to nearest ED for chest pain or shortness of breath unresolved by rest and nitroglycerin. Recommended she call cardiology service to discuss her symptoms further. Called to scheduling to set next [facility] apt scheduled for tomorrow. Aniya Luque verbalized understanding and agreement with plan and is aware how to contact the OBGYN service with further questions or concerns. documented in this encounter Plan of Treatment Upcoming Encounters Date Type Department Care Team (Late st Contact Info) Description 09/21/2024 8:15 AM EST Routine Obstetrics [place] [phone] Emili Cabrera MD [facility] [place] [address] 09/26/2024 6:[address] [facility] [place] [phone] 10/16/2024 Hospital [place] [phone] Dudley Aguilar MD [facility] [address] OBSTET[place]ICS [place] [address] 11/08/2024 10:00 AM EST Hospital Encounter Non[place] [phone] Arrived documented as of this encounter Visit Diagnoses Not on filedocumented in this encounter Care Teams Blocker Heated Metal Forms Relationship Specialty Start Date End Date None None PCP - General 05/30/22 09/28/23 documented as of this encounter
--- OUTSIDE RECORDS SUMMARY | 2024-09-20 11:06 | XMS_ITS | Encounter Summary ---
Author Organization [facility] Address [facility] [place] [address] Care Team Providers Care Story Editor Name Role Phone None Primary Care Provider Unavailabl e Encounter Details Date Type Department Care Team (Late st Contact Info) Description 05/30/2022 Telephone Cardiology at [address] [phone] Kaylen Brasher MD [facility] [place] [address] Social History Tobacco Use Types Packs/Day Years [...] encounter Miscellaneous Notes * Telephone Encounter - Kaylen Brasher MD - 05/30/2022 6:18 PM EDT Called pt and left message on her voicemail. Clarified that lithograph press operator never promisesd pre-term delivery. The timing of delivery has been discussed during M-Cardiology rounds weeks ago. No cardiac indications for pre-term delivery. documented in this encounter Plan of Treatment Upcoming Encounters Date Type Department Care Team (Late st Contact Info) Description 09/21/2024 8:15 AM EST Routine Obstetrics [place] [address] Emili Cabrera MD [facility] [place] [address] 09/26/2024 6:00 PM EST Appointment [facility] [place] [phone] 10/16/2024 Hospital [place] [address] Dudley Aguilar MD [facility] [address] [place]ST[place] [address] 11/08/2024 10:00 AM EST Hospital Encounter Non-[place]vasive [place] [phone] Arrived documented as of this encounter Visit Diagnoses Not on filedocumented in this encounter Care Teams Story Editor Relationship Specialty Start Date End Date None None PCP - General 05/30/22 09/28/23 documented as of this encounter
--- OUTSIDE RECORDS SUMMARY | 2024-09-20 11:06 | XMS_ITS | Encounter Summary ---
Author Organization [facility] [place] [address] Care Team Providers Care Field Reviewer Name Role Phone None Primary Care Provider Unavailabl e Encounter Details Date Type Department Care Team (Late st Contact Info) Description 06/20/2022 Telephone Obstetrics [place] [phone] Alla Weinberg RN Social History Tobacco Use [...] Telephone Encounter - Alla Weinberg RN - 06/20/2022 1:22 PM EDT Returned call to Aniya Luque GA: 32w0d Subcutaneous defibrillator implanted 11/12/21, h/o cardiac arrest Hypertension, tachycardia MFM patient Reason for call: Aniya is calling today reporting that she is feeling very short of breath. Reports she has had pain that she reported to Dr. Torres on 06/12, that has gotten worse over the past several days Very bad pain across my back Reports menstrual-like cramping; feels like I am going to start my period. Back pain is relieved by ambulation, but when she walks states her abdomen hardens up. Reports heartburn has gotten very severe, tasting acid reflux in my nose. Reports loose stool for the past 3 days with increased nausea without vomiting. Tested herself for Covid yesterday - negative States she is unable to answer the question of whether she is having LOF Denies any vaginal bleeding Continues to have increased vaginal pressure and sometimes having pain in my butt. Paged Dr. Wang and reviewed above information, Dr. Wang advises that Aniya be evaluated in the [facility]. Spoke with Aniya, and let her know that she should plan to come to the [facility] as soon as she is able. Aniya states she will be leaving shortly and should be at in an hour. Report of above given to [facility] personal, including expected arrival time. documented in this encounter Plan of Treatment Upcoming Encounters Date Type Department Care Team (Late st Contact Info) Description 09/21/2024 8:15 AM EST Routine Obstetrics [place] [address] Emili Cabrera MD [facility] [place] [address] 09/26/2024 6:00 [place] [address] 10/16/2024 [place] [phone] Duldey Aguilar MD [facility] OBSTETRICS [place] [address] 11/08/2024 10:00 AM EST Hospital Encounter [place] [address] Arrived documented as of this encounter Visit Diagnoses Not on filedocumented in this encounter Additional Health Concerns Infection Onset Date Last Indicated Resolved Time Rule Out Respiratory 06/20/2022 06/20/2022 022 11:02 PM EDT Rule Out COVID-19 06/20/2022 06/20/2022 06/20/2022 11:02 PM EDT documented as of this encounter Care Teams Field Reviewer Relationship Specialty Start Date End Date None None PCP - General 05/30/22 09/28/23 documented as of this encounter
--- OUTSIDE RECORDS SUMMARY | 2024-09-20 11:06 | XMS_ITS | Encounter Summary ---
Author Organization [facility] Address [facility] [place] [address] Care Team Providers Care Ovens Supervisor Name Role Phone None Primary Care Provider Unavailabl e Encounter Details Date Type Department Care Team (Latest Contact Info) Description 06/28/2022 7:57 AM EDT - 06/28/2022 11:59 PM EDT Hospital [place] [address] Romana Torres MD [facility] OBSTETRICS [place] [address] Size of fetus inconsistent with dates in third trimester Discharge Disposition: Home Social History Tobacco Use [...] End Date fluticasone propionate (Flonase) 50 mcg/actuation [place], SuspensionIndications :allergic rhinitis 1 spray by Each [...] EST Routine Obstetrics [place] [address] Emili Cabrera MD [facility] [place] [address] 09/26/2024 6:00 PM EST Appointment [facility] [place] [phone] 10/16/2024 Hospital Encounter Birthing [facility] [place] [phone] Dudley Aguilar MD [facility] DR OBSTETRICS [place] [address] 11/08/2024 10:00 AM EST Hospital Encounter [place] [phone] Arrived documented as of this encounter Procedures Procedure Name Priority Date/Time Associated Diagnosis Comments US OB FOLLOW UP Routine 06/28/2022 8:19 AM EDT Size of fetus inconsistent with dates in third trimester documented in this encounter Results * US [...] who have questions, please contact the health physician assistant primary care that requested your imaging first. ?Romana Torres, Yoghurt Maker Electronically Signed Final Report ?? 06/28/2022 08:32 am Narrative 06/28/2022 8:33 AM EDT OBSTETRICS REPORT ?(Signed Final 06/28/2022 08:32 am) PATIENT INFO: ID #: ? [id number] ?: ??[birth year] (37 yrs)(F) Name: ? JOSE JUAN Brian LUQUE ? Visit Date: 06/28/2022 07:58 am PERFORMED BY: Performed By: ? Madalyn Curtis RDMS Attending: ?Brian LOUISE, Romana Banks Referred By: ?ROMANA TORRES Location: ? [place] SERVICE(S) PROVIDED: UOBFOL - Efw - Growth ??- [place] - [id number] INDICATIONS: 33 weeks gestation of ?Z3A.33 size [...] - 87 FL/AC: ? 20.3 ??% ? - Est. FW: ?2071 ??gm ?4 lb 9 [...] 06/28/2022 08:32 am) PATIENT INFO: ID #: [id number] : [birth year] (37 yrs)(F) Name: JOSE JUAN LUQUE Visit Date: 06/28/2022 07:58 am PERFORMED BY: Performed By: Madalyn Curtis RDMS Attending: Romana Torres MD Referred By: ROMANA TORRES Location: [place] SERVICE(S) PROVIDED: UOBFOL - Efw - Growth - [place] - [id number] INDICATIONS: 33 weeks gestation of Z3A.33 size [...] who have questions, please contact the health physician assistant primary care that requested your imaging first. Romana Torres, Yoghurt Maker Electronically Signed Final Report 06/28/2022 08:32 am Romana Torres MD IMG US OB ORDERABLES documented in this encounter Visit Diagnoses Diagnosis Size of fetus inconsistent with dates in third trimester documented in this encounter Care Teams Ovens Supervisor Relationship Specialty Start Date End Date None None PCP - General 05/30/22 09/28/23 documented as of this encounter
--- OUTSIDE RECORDS SUMMARY | 2024-09-20 11:06 | XMS_ITS | Encounter Summary ---
Author Organization [facility] [place] [address] Care Team Providers Care Buckle Strap Puncher Name Role Phone None Primary Care Provider Unavailabl e Encounter Details Date Type Department Care Team (Late st Contact Info) Description 06/09/2022 Telephone Obstetrics [place] [phone] Jennifer Chiang MD [address] [place] [id number] Social History Tobacco Use Types Packs/Day Years [...] encounter Miscellaneous Notes * Telephone Encounter - Jennifer Chiang MD - 06/09/2022 6:25 PM EDT Data Analyst Telephone Note Patient ID: Aniya Luque is a 36 y.o. at 30w3d calling for concern for multiple concerns including SOB, chest pain, feeling unwell. See below. c/b cHTN, asthma, cigarette smoking, chest pain hx with 11/04- admission for cardiac arrest thought to be due to severe coronary vasospasm (see 05/14/2022 Cardiology and Anesthesiologynotes), left sided ICD (defibrillator) placed 10/2021, s/p reassuring cardiac echo on 04/26/2022, boderline personality disorder, PTSD depression and anxiety. Per Patient: Pt confirmed name and . Pt states haven't been feeling right for past couple of days. Pt states blood sugar high - 180. Feels like pins and needles all over me. States can't think right. Pt stated she felt unwell and passed phone to her fianceBlake. Rest of information from Blakewith pt heard in background, answering questions from Blake. Per Blake, he describes the following cardiac history for patient: Nov 04, 2021 had heart attack, blood vessels spasm --> cardiac arrest --> CPR 22 minutes. 6 more heart attacks at [facility]. Stayed for 3 weeks. Has defibrillator, on amlodipine, reduced from 10 mg/day to 2.5 mg BID recently. That's when he noticed the changes pt mentioned above. Blake tells me the following: - states they are also getting care from [facility] (presume referring to [facility]) and [facility] - recently on Iron per [facility] because Hb 9 point something but pt can't keep down meds. - Aunt who is a nurse checked BG and it was 180. Supposed to get glucose test this week. - pt last ate at 1 pm. ROS: Balke affirms the following ROS for the patient, asking pt questions as he answered: - Coughing, dry heaving, coughs up fluid and phlegm. White phlem. - No other sick contacts - Pt has not had any Covid vacccines. - States :highest temp, of up to 100.1 F. Night sweats and chills. - Not new symptoms for pt but was better and now getting worse: hard time walking because legs hurt. Thought it was from the iron. Hurting since before the heart attack and after. - When Blake asked, pt endorsed chest pain and SOB. Worse when lays done. Blake then told me the patients oxygen was good. At this point Blake informed me that EMS had just arrived and he was told the patients oxygen wasokay. Given that EMS was now present and evaluating patient, I discussed my recommendation for pt to be taken via EMS now to present to closest hospital for evaluation, and if needed, could be transferred to [facility] pending pt evaluation. Partner in agreement. Of note, given EMS present, brief OB ROS notable for pt endorsing decreased FM and some tightening of abdomen. Pt again encouraged to go with EMS to hospital for evaluation. Partner verbalized agreement. In addition, chart review of cardiac history notable for the following: Review of 05/14/2022 Cardiology Note: Hospitalized 11/04-. ??She had a witnessed VF [...] ??And was counseled extensively to quit smoking.? Review of 05/14/2022 Anesthesia Note: ...anesthesia plan includes early epidural and having a magnet and Zoll in the room. Early epidural placement would allow for us to achieve gradual neuraxial anesthesia without significant hemodynamic swings seen with either rapid neuraxial or with significant pain. Furthermore, this minimizes therisk of needing GA if a is needed. We will also want to have a magnet with the patient dafne placed over the ICD in case the bovie is needed (ie for a C- section). This will turn off the ICDso Zoll pads should also be placed on the patient in case defibrillation is needed. Following the procedure, EP should evaluate her device. -- Reviewed with Dr. Lockhart, attending vice president underwriting. Jennifer Chiang MD PGY3 documented in this encounter Plan of Treatment Upcoming Encounters Date Type Department Care Team (Late st Contact Info) Description 09/21/2024 8:15 AM EST Routine Obstetrics [place] [address] Emili Cabrera MD [facility] [place] [address] 09/26/2024 6:00 PM EST Appointment [facility] [place] [address] 10/16/2024 [place] [address] Dudley Aguilar MD [facility] [place] [address] 11/08/2024 10:00 AM EST Hospital Encounter Non-Invasive [place] [address] Arrived documented as of this encounter Visit Diagnoses Diagnosis Cardiac arrest documented in this encounter Care Teams Buckle Strap Puncher Relationship Specialty Start Date End Date None None PCP - General 05/30/22 09/28/23 documented as of this encounter
--- OUTSIDE RECORDS SUMMARY | 2024-09-20 11:06 | XMS_ITS | Encounter Summary ---
Author Organization [facility] [place] [address] Care Team Providers Care Manager Research And Development Name Role Phone Unavailable Primary Care Provider Unavailabl e Encounter Details Date Type Department Care Team (Late st Contact Info) Description 05/21/2022 Orders Only Cardiology at [address] [phone] Social History Tobacco Use Types [...] AM EST Routine Obstetrics [place] [address] Emili Cabrera MD [facility] [place] [address] 09/26/2024 6:00 PM EST Appointment [facility] [place] [address] 10/16/2024 Hospital Encounter [place] [address] Dudley Aguilar MD [facility] DR OBSTETRICS AND GYNECOLOGY [place] [id number] 11/08/2024 10:00 AM EST Hospital Encounter Non-Invasive [place] [address] Arrived documented as of this encounter Procedures Procedure Name Priority Date/Time Associated Diagnosis Comments CARDIAC DEVICE CHECK - REMOTE SCHEDULED Routine 05/21/2022 7:37 AM EDT documented in this encounter Results * Cardiac device check - Remote Scheduled (05/21/2022 7:37 AM EDT) Implantable Pulse Generator Type Defibrillator [employer]CO Implantable Pulse Generator Model A219 IDCO Implantable Pulse Generator Serial Number [id number] IDCO Implantable Pulse Generator Market Garden Worker [employer] IDCO Implantable Pulse Generator Implant Date 20211112 IDCO Date Time Interrogation Session IDCO Type Interrogation Session Remote Scheduled IDCO Clinic Name [facility] IDCO Battery Date Time of Measurements [...] IDCO Episode Statistic Recent Date Time End 20220521 IDCO Episode Statistic Total Count 0 IDCO Episode Statistic Total Date Time Start 20211112 IDCO Episode Statistic Total Date Time End 20220521 IDCO Episode Statistic Type Category VF IDCO Episode Statistic Vendor Type Category VF IDCO Episode Statistic Recent Count 0 IDCO Episode Statistic Recent Date Time Start 20220213 IDCO Episode Statistic Recent Date Time End 20220521 IDCO Episode Statistic Total Count 0 IDCO Episode Statistic Total Date Time Start 20211112 IDCO Episode Statistic Total Date Time End 20220521 IDCO Therapy Statistic Recent Date Time Start 20220213 IDCO Therapy Statistic Recent Date Time End 20220521 IDCO Therapy Statistic Recent Shocks Delivered 0 IDCO Therapy Statistic Total Date Time Start 20211112 IDCO Therapy Statistic Total Date Time End 20220521 IDCO Therapy Statistic Total Shocks Delivered 1 IDCO Implantable Lead Model 3501 IDCO Implantable Lead Serial Number [id number] IDCO Implantable Lead Market Garden Worker [employer] IDCO Implantable Lead Location Other IDCO Implantable Lead Location Detail 1 Subcutaneous IDCO Anatomical Region Laterality Modality Other 05/21/2022 7:37 AM EDT Physician Cardiology IMPLANTABLE CARD IAC DEVICE documented in this encounter Visit Diagnoses Not on filedocumented in this encounter
--- OUTSIDE RECORDS SUMMARY | 2024-09-20 11:06 | XMS_ITS | Encounter Summary ---
Author Organization [facility] Address [facility] [place] [address] Care Team Providers Care Stripper Machine Operator Name Role Phone None Primary Care Provider Unavailabl e Encounter Details Date Type Department Care Team (Late st Contact Info) Description 06/27/2022 Telephone Obstetrics [place] [phone] Jackie Farooq MD [facility] DR OBSTETRICS [place] [address] Social History Tobacco Use Types Packs/Day Years [...] encounter Miscellaneous Notes * Telephone Encounter - Jackie Farooq - 06/27/2022 8:21 AM EDT Aniya Brian Luque is a 37 y.o. at 33w0d with history of cardiac arrest thought to secondary to vasospasm now with ICD, who is calling with pelvic cramping like period cramps. She also describes more painful tightening of her abdomen, which she feels is as strong as labor contractions in her prior labors. She denies vaginal bleeding or continuous leaking but does have more vaginal discharge and some leaking with increased intraabdominal pressure (when she coughs or sneezes). Denies urinary symptoms. She generally describes not feeling well (had a recent triage visit one week ago when she was diagnosed with community acquired pneumonia and discharged on 1 week of antibiotics). She denies chest pain or palpitations. She does have some residual shortness of breath. Encouraged her to present to the for triage visit and pre-term labor check Jackie Farooq MD, PGY-4 06/27/2022 8:26 AM documented in this encounter Plan of Treatment Upcoming Encounters Date Type Department Care Team (Late st Contact Info) Description 09/21/2024 8:15 AM EST Routine Obstetrics [place] [address] Emili Cabrera MD [facility] [place] [address] 09/26/2024 6:00 PM EST Appointment [facility] [place] [phone] 10/16/2024 Hospital [place] [address] Dudley Aguilar MD [facility] DR OBSTETRICS [place] [address] 11/08/2024 10:00 AM EST Hospital Encounter [place] [address] Arrived documented as of this encounter Visit Diagnoses Not on filedocumented in this encounter Care Teams Stripper Machine Operator Relationship Specialty Start Date End Date None None PCP - General 05/30/22 09/28/23 documented as of this encounter
--- OUTSIDE RECORDS SUMMARY | 2024-09-20 11:06 | XMS_ITS | Encounter Summary ---
Author Organization [facility] Address [facility] [place] [address] Care Team Providers Care Offset Press Operator Helper Name Role Phone Unavailable Primary Care Provider Unavailabl e Encounter Details Date Type Department Care Team (Latest Contact Info) Description 05/21/2022 - 05/21/2022 11:59 PM EDT Hospital Encounter [place] [address] Isai Yap MD [facility] [place] [address] Sudden cardiac arrest Discharge Disposition: Home Social History Tobacco Use [...] End Date fluticasone propionate (Flonase) 50 mcg/actuation [place], SuspensionIndications :allergic rhinitis 1 spray by Each [...] Take 1 tablet by mouth as needed. FLUoxetine (PROzac) 20 mg/5 mL (4 mg/mL) [...] A DAY FOR 14 DAYS 12/08/2021 07/11/2022 famotidine (Pepcid) 20 mg Tablet Take 1 tablet by mouth 2 times daily (before meals). Substitute with OTC as needed 60 tablet 11/16/2021 06/20/2022 acetaminophen (Tylenol) 500 mg Tablet Take 2 [...] AM EST Routine Obstetrics [place] [address] Emili Cabrera MD [facility] MATERNAL [place] [address] 09/26/2024 6:00 PM EST Appointment [facility] [place] [address] 10/16/2024 Hospital [place] [address] Dudley Aguilar MD [facility] OBSTETRICS [place] [address] 11/08/2024 10:00 AM EST Hospital Encounter [place] [address] Arrived documented as of this encounter Procedures Procedure Name Priority Date/Time Associated Diagnosis Comments ICD INTERROGATION 3 MONTH Routine 05/22/2022 7:56 AM EDT Sudden cardiac arrest documented in this encounter Results * ICD INTERROGATION 3 MONTH (05/22/2022 7:56 AM EDT) Anatomical Region Laterality Modality Other Narrative 05/22/2022 11:32 AM EDT Cardiac Device Remote Monitoring Report Summary [employer] Latitude Device: ICD Model: EMBLEM Battery: 96% to JOSE Pacing percentage: n/a Events: No events Impression Normal device function Follow Up As per schedule - in-clinic and remote ISAI YAP MD 05/22/22 Isai Yap MD IMPLANTABLE CARDIAC DEVICE documented in this encounter Visit Diagnoses Diagnosis Sudden cardiac arrest Instantaneous documented in this encounter
--- OUTSIDE RECORDS SUMMARY | 2024-09-20 11:07 | XMS_ITS | Encounter Summary ---
Author Organization [facility] Address [facility] [place] [address] Care Team Providers Care Machine Tool Rebuilder Name Role Phone MelindaKenia ford ADRIAN Primary Care Provider +1- [phone] Encounter Details Date Type Department Care Team (Latest Contact Info) Description 03/26/2022 10:20 AM EDT Office Visit Cardiology at [address] [address] Kaylen Brasher MD [facility] [place] [address] Other chest pain; Cardiac arrest; Subcutaneous defibrillator implanted 11/12/2019; Hypertension, unspecified type Social History Tobacco Use [...] Sign Reading Time Taken Comments Blood Pressure 117/81 03/26/2022 10:23 AM EDT Pulse 86 03/26/2022 10:23 AM EDT Temperature - - Respiratory Rate - - Oxygen Saturation 100% 03/26/2022 10:23 AM EDT Inhaled Oxygen Concentration - - Weight 74.4 kg (164 lb 1.6 oz) 03/26/2022 10:23 AM EDT Height 162.6 cm (5' 4) 03/26/2022 10:23 AM EDT Reported Body Mass Index 28.17 03/26/2022 10:23 AM EDT documented in this encounter Progress Notes * Kaylen Brasher MD - 03/26/2022 10:20 AM EDT Images from the original note were not included. [facility] [place] [address] [place] [address] CARDIOLOGY OUTPATIENT PROGRESS NOTE PRIMARY CARE PROVIDER: Kenia Lawrence APRN REFERRING PROVIDER: Kenia Lawrence PROBLEM LIST: Patient Active Problem List Diagnosis ??? Subcutaneous defibrillator implanted 11/12/2019 Pulse generator: [employer] MRI S-ICD Pulse Generator Model A219 Serial Number [id number] Implanted 11/12/21 Ventricular electrode: SQ electrode Model 3501 Bipolar Serial Number [id number] Implanted 11/12/21 ??? Cigarette smoker ??? Coronary artery vasospasm ??? *History of COVID-19 ??? Cardiac arrest ??? Gastroesophageal reflux disease Added automatically from request for surgery [id number] ??? Borderline personality disorder ??? Post-traumatic stress [...] Outpatient Medications Medication Sig Dispense Refill ??? metroNIDAZOLE (FlagyL) 250 mg Tablet Take 1 tablet by mouth 3 times daily for 7 days. 21 tablet0 ??? clonazePAM (KlonoPIN) 1 mg Tablet Take 1 mg by mouth 3 times daily as needed. ??? amLODIPine (Norvasc) 10 mg Tablet Take 0.5 tablets by mouth 2 times daily. 90 tablet 3 ??? isosorbide mononitrate CR (Imdur) 30 mg Tablet [...] 0 ??? fluticasone propionate (Flonase) 50 mcg/actuation [place], Suspension 1 spray by Each Nare route [...] y.o. patient of Kenia Lawrence APRN. HPI: Hospitalized 11/04-. ??She had a witnessed VF [...] after her arrest. LVEF 68% without RWMA. ??She has a sub-Q ICD which has not fired. ??And was counseled extensively to quit smoking. ?? She came in today, 20 weeks gestation, c/o a brief episode of CP last night, resolving after SL nitro. C/o occasional dizziness, but no syncope. Anxious about and delivery. ?? Recently, she started to have nasal congestion and right side sinus congestion. Waiting to see a PCP. REVIEW OF SYSTEMS: Review of Systems Cardiovascular: Positive for chest pain and leg swelling. Respiratory: Positive for sputum production. No PND or orthopnea No syncope No [...] Not on file Objective: PHYSICAL EXAM: BP 117/81 (Patient Position: Sitting) Pulse 86 Ht 162.6 cm (5' 4) Comment: Reported Wt 74.4 kg (164 lb 1.6 oz) LMP 11/08/2021 SpO2 100% BMI 28.17 kg/m?? , Body mass index is 28.17 kg/m??. General: Pleasant. No distress. Skin: Warm and dry. HEENT: Anicteric sclera. Neck: JVP not elevated. No AJR. No carotid bruits. Chest: Clear to auscultation Heart: No heave. Regularly regular rhythm. Normal S1 and S2. No gallops. No murmurs. Abdomen: Nondistended. Soft. Nontender. Extremities: No edema. SUBACUTE NURSE: Normal mentation. Psych: Appropriate affect. Labs: Lab [...] patient of Kenia Lawrence APRN presenting with: cardio-ob follow up Cardiac arrest VF arrest in the setting of possible coronary spasm Most recent echo 02/2022 showed normal study with normal ventricular function. CP poorly defined, relieved by SL nitro Closely monitor Subcutaneous defibrillator implanted 11/12/2019 Today, she is wearing a tight bra which presses on the device Some tenderness when pressing on the pocket. No erythema or discharge Recommend loose fit clothes Will observe the site Hypertension BP good in office Plan: ??? Monitor sICD site ??? Recommend PCP to follow up on sinus infection ??? Nitro/CCB PRN for CP ??? Healthy eating and smoking cessation ??? Need to coordinate MFM, OB anesthesia and Card to arrange for delivery in a controlled setting. ??? RTC in 2 months Thank you for the opportunity to participate in this patient's cardiovascular care. All questions were answered and I look forward to the next visit. Kaylen Brasher MD documented in this encounter Miscellaneous Notes * Assessment & Plan Note - Kaylen Brasher MD - 03/26/2022 11:17 AM EDT Associated Problem(s): Hypertension BP good in office * Assessment & Plan Note - Kaylen Brasher MD - 03/26/2022 11:13 AM EDT Associated Problem(s): [place] [employer] SQ ICD, single, in situ Today, she is wearing a tight bra which presses on the device Some tenderness when pressing on the pocket. No erythema or discharge Recommend loose fit clothes Will observe the site * Assessment & Plan Note - Kaylen Brasher MD - 03/26/2022 11:12 AM EDT Associated Problem(s): Cardiac arrest VF arrest in the setting of possible coronary spasm Most recent echo 02/2022 showed normal study with normal ventricular function. CP poorly defined, relieved by SL nitro Closely monitor documented in this encounter Plan of Treatment Upcoming Encounters Date Type Department Care Team (Late st Contact Info) Description 09/21/2024 8:15 AM EST Routine Obstetrics [place] [address] Emili Cabrera MD [facility] [place] [address] 09/26/2024 6:00 PM EST Appointment [facility] [place] [address] 10/16/2024 Hospital [place] [address] Dudley Aguilar MD [facility] DR OBSTETRICS [place] [address] 11/08/2024 10:00 AM EST Hospital Encounter [place] [address] Arrived documented as of this encounter Procedures Procedure Name Priority Date/Time Associated Diagnosis Comments EKG 12-LEAD Routine 03/26/2022 10:28 AM EDT Other chest pain documented in this encounter Results * EKG 12 Lead (03/26/2022 10:28 AM EDT) Ventricular rate 74 BPM MUSE SYSTEM Atrial Rate 74 BPM MUSE SYSTEM P-R Interval 126 ms MUSE SYSTEM QRS Duration 86 ms MUSE SYSTEM Q-T Interval 406 ms MUSE SYSTEM QTC Calculated (Bezet) 450 ms MUSE SYSTEM Calculated P [place] 39 degrees MUSE SYSTEM Calculated R [place] 20 degrees MUSE SYSTEM Calculated T [place] 23 degrees MUSE SYSTEM INTERPRETATION Normal sinus rhythm Normal ECG When compared with ECG of 16-NOV-2021 12:19, No significant change was found Confirmed by Ej Zurita ([id number]) on 03/26/2022 3:04:48 PM MUSE SYSTEM 03/26/2022 10:2 8 AM EDT 03/26/2022 3:04 PM EDT Kaylen Brasher MD ECG ORDERABLES MUSE SYSTEM documented in this encounter Visit Diagnoses Diagnosis Other chest pain Cardiac arrest Subcutaneous defibrillator implanted 11/12/2019 Hypertension, unspecified type documented in this encounter Care Teams Machine Tool Rebuilder Relationship Specialty Start Date End Date Kenia Lawrence APRN [address] [place] [address] PCP - General Family Medicine 10/10/21 05/20/22 documented as of this encounter
--- OUTSIDE RECORDS SUMMARY | 2024-09-20 11:07 | XMS_ITS | Encounter Summary ---
Author Organization [facility] Address [facility] [place] [address] Care Team Providers Care In Store Representative Name Role Phone Melinda Kenia Marilin CAMPBELL Primary Care Provider +1- [phone] Encounter Details Date Type Department Care Team (Late st Contact Info) Description 02/07/2022 Telephone [place] [address] Sophy Dacosta V FRUIT GRADER OPERATOR [facility] [place] [address] Social History Tobacco Use Types Packs/Day Years [...] encounter Miscellaneous Notes * Telephone Encounter - Sophy Dacosta APRN - 02/07/2022 3:55 PM EDT Called to discuss smoking cessation. Aniya requested a callback next week as she is not feeling well today. I will call back next week to follow up. Sophy Dacosta APRN 02/07/2022 documented in this encounter Plan of Treatment Upcoming Encounters Date Type Department Care Team (Late st Contact Info) Description 09/21/2024 8:15 AM EST Routine Obstetrics [place] [address] Emili Cabrera MD [facility] [place] [address] 09/26/2024 6:00 PM EST Appointment [facility] [place] [address] 10/16/2024 [place] [address] Dudley Aguilar MD [facility] [address] OBSTET[place] [address] 11/08/2024 10:00 AM EST Hospital Encounter [place] [address] Arrived documented as of this encounter Visit Diagnoses Not on filedocumented in this encounter Care Teams In Store Representative Relationship Specialty Start Date End Date Kenia Lawrence APRN [address] [place] [address] PCP - General Family Medicine 10/10/21 05/20/22 documented as of this encounter
--- OUTSIDE RECORDS SUMMARY | 2024-09-20 11:07 | XMS_ITS | Encounter Summary ---
Author Organization [facility] [place] [address] Care Team Providers Care Curtain Stitcher Name Role Phone Kenia Lawrence APRN Primary Care Provider +1- [phone] Reason for Visit * Reason Onset Date Comments Questions 04/23/2022 Encounter Details Date Type Department Care Team (Late st Contact Info) Description 04/23/2022 Telephone Cardiology at [address] [phone] Lucila Abebe, RN Questions Social History Tobacco Use Types Packs/Day Years [...] as of this encounter Miscellaneous Notes * Addendum Note - Lucila Abebe RN - 04/26/2022 9:26 AM EDTAddended by: LUCILA ABEBE on: 04/26/2022 09:26 AM Modules accepted: Orders * Telephone Encounter - Lucila Abebe RN - 04/26/2022 9:25 AM EDT Call placed to the home and mobile numbers listed. No answer at either. The following message from Dr Brasher left on the preferred, mobile number listed: Yes, as per note, she is supposed to take norvasc 5 mg bid. Thanks. Pt is to call the Green team nurse with any further questions. * Telephone Encounter - Lucila Abebe RN - 04/23/2022 4:48 PM EDT Pt calling to confirm that she is supposed to be taking Amlodipine 10 mg 1/2 tab twice a day? The tablets she got from the pharmacy are different than the ones she has been taking and unfortunately, to label is unreadable so she cannot compare. She is not taking the Imdur. Asking Dr Brasher to confirm that it is the Amlodipine that she should be continuing? documented in this encounter Plan of Treatment Upcoming Encounters Date Type Department Care Team (Late st Contact Info) Description 09/21/2024 8:15 AM EST Routine Obstetrics [place] [address] Emili Cabrera MD [facility] [place] [address] 09/26/2024 6:00 PM EST Appointment [facility] [place] [address] 10/16/2024 [place] [phone] Dudley Aguilar MD [facility] OBSTETRICS [place] [address] 11/08/2024 10:00 AM EST Hospital Encounter [place] [address] Arrived documented as of this encounter Visit Diagnoses Not on filedocumented in this encounter Care Teams Curtain Stitcher Relationship Specialty Start Date End Date Kenia Lawrence APRN [address] [place] [address] PCP - General Family Medicine 10/10/21 05/20/22 documented as of this encounter
--- OUTSIDE RECORDS SUMMARY | 2024-09-20 11:07 | XMS_ITS | Encounter Summary ---
Author Organization [facility] [place] [address] Care Team Providers Care Child Nutrition Assistant Name Role Phone MelindaKenia ford ADRIAN Primary Care Provider +1- [phone] Encounter Details Date Type Department Care Team (Late st Contact Info) Description 01/29/2022 Telephone Obstetrics [place] [phone] Yolanda Humphrey, RN Social History Tobacco Use Types Packs/Day [...] encounter Miscellaneous Notes * Telephone Encounter - Yolanda Humphrey RN - 01/29/2022 3:08 PM EDT Called to patient re: abdominal pain 11w5d GA High risk , previous PA with implantable defibrillator in place Patient had a visit with [facility] earlier today. She states she did not bring up abdominal painto provider when she was at this visit. Patient states this afternoon when she went from laying down to sitting position she felt a pulling sensation in center of her abdomen and now her abdomen is tender to touch. She denies any vaginal bleeding at this time. She just took 1000 mg of tylenol. Advised patient that since this occurred during a position change it could likely be musculoskeletal. Advised her to try warm bath, rest, slow positional changes, alternating heat/ice to the sore part of her abdomen. Advised her if pain worsens she should report to ED. She does not feel like she needs to go to the ED at this time. Advised her to call with any vaginal bleeding. Patient agrees to this plan. documented in this encounter Plan of Treatment Upcoming Encounters Date Type Department Care Team (Late st Contact Info) Description 09/21/2024 8:15 AM EST Routine Obstetrics [place] [address] Emili Cabrera MD [facility] [place] [address] 09/26/2024 6:00 PM EST Appointment [facility] [place] [phone] 10/16/2024 [place] [address] Dudley Aguilar MD [facility] DR OBSTET[place]ICS [place] [address] 11/08/2024 10:00 AM EST Hospital Encounter Non-[place]vasive [place] [address] Arrived documented as of this encounter Visit Diagnoses Not on filedocumented in this encounter Care Teams Child Nutrition Assistant Relationship Specialty Start Date End Date Kenia Lawrence APRN [address] [place] [address] PCP - General Family Medicine 10/10/21 05/20/22 documented as of this encounter
--- OUTSIDE RECORDS SUMMARY | 2024-09-20 11:07 | XMS_ITS | Encounter Summary ---
Author Organization [facility] Address [facility] [place] [address] Care Team Providers Care Plane Captain Name Role Phone MelindaKenia ford SIPHON OPERATOR Primary Care Provider +1- [phone] Encounter Details Date Type Department Care Team (Late st Contact Info) Description 01/31/2022 Notes Only Cardiology at [address] [address] Ej Zurita MD [facility] [place] [address] Social History Tobacco Use Types Packs/Day Years [...] Progress Notes * Ej Zurita MD - 01/31/2022 10:15 AM EDT Connected with Aniya this am. Currently 12 weeks. Woke her up at 10:15am. Reporting pain on the left side rib going toward the belly button. Appetitepoor. No vomiting. Very nauseous. No diarrhea. Chest pain: Has used the SLN 4 times this week during the day. Pain is left sided, near incision. No associated activity. Not positional pain. + sob. +clammy. +increased nausea. + left arm pain. Still having occasional chest burning (twice since October). Hasn't started the isosorbide because she was nervous. She read the pamphlet and panicked. +Palpitations Plan: -continue amlodipine 10mg daily -Recommended trial half tab of isosorbide. -Reached out to smoking cessation re: medication choice -Reached out to EP for device interrogation -Follow up as planned * Ej Zurita MD - 01/31/2022 10:15 AM EDT No arrhythmia on device interrogation. documented in this encounter Plan of Treatment Upcoming Encounters Date Type Department Care Team (Late st Contact Info) Description 09/21/2024 8:15 AM EST Routine Obstetrics [place] [address] Emili Cabrera MD [facility] [place] [address] 09/26/2024 6:00 PM EST Appointment [facility] [place] [address] 10/16/2024 [place] [phone] Dudley Aguilar MD [facility] OBSTETRICS [place] [address] 11/08/2024 10:00 AM EST Hospital Encounter Non-Invasive [place] [address] Arrived documented as of this encounter Visit Diagnoses Not on filedocumented in this encounter Care Teams Plane Captain Relationship Specialty Start Date End Date Kenia Lawrence APRN [address] [place] [address] PCP - General Family Medicine 10/10/21 05/20/22 documented as of this encounter
--- OUTSIDE RECORDS SUMMARY | 2024-09-20 11:07 | XMS_ITS | Encounter Summary ---
Author Organization [facility] Address [facility] [place] [address] Care Team Providers Care Reinforced Concrete Inspector Name Role Phone Melinda, Kenia Marilin CAMPBELL Primary Care Provider +1- [phone] Reason for Visit * Consultation (Routine) - Closed Specialty Diagnoses / Procedures Referred By Contbill t Referred To Contact Obstetrics and Gynecology Diagnoses , unspecified gestational age Coronary artery vasospasm Yudi Oliveira MD [facility] OBST[place] [address] [facility] [address] [place] [address] Referral ID Status Reason Start Date Expiration Date V isits Requested Visits Authorized [id number] Closed Continuity of Care 01/29/2022 01/29/2023 1 1 Encounter Details Date Type Department Care Team (Late st Contact Info) Description 02/18/2022 9:00 AM EDT Clinical Support Obstetrics [place] [address] [facility] [place] [address] , unspecified gestational age Social History Tobacco Use Types Packs/Day Years [...] as of this encounter Progress Notes * Hyun Buckner RD - 02/18/2022 9:00 AM EDT February 18, 2022 Aniya Luque [id number] NUTRITION SERVICES: OUTPATIENT VISIT Referred for nutrition in high risk . PMH significant for GERD, ALIRIO, MDD, chronic nausea, reactive airway disease, HTN, bipolar, depression and anxiety. She was hospitalized in October aftercardiac arrest with resuscitation. Referral from: Kenia Lawrence APRN SUBJECTIVE: Aniya Luque is a 36 y.o. female referred for outpatient nutrition counseling. Patient not feeling well, fatigue and nausea. She reports having chronic nausea, has seen GI for dyspepsia. Diet Recall: No regular intake, skips meals, does not like fruit, limited vegetables Breakfast: sometimes skips, sometimes toast with butter or peanut butter Snack: sometimes yogurt Lunch: sometimes sandwiches with deli meat Snack: - Dinner: yesterday ham, mashed potatoes and corn After dinner: Fluids: water, silvia faby, apple juice, was prescribed 3 Ensure original per day Physical Activity: some walking OBJECTIVE: Wt: Wt Readings from Last 3 Encounters: 02/18/22 75.3 kg (166 lb) 02/13/22 74.9 kg (165 lb 3.2 oz) 02/13/22 74.9 kg (165 lb 3.2 oz) BMI: BMI Readings from Last 1 Encounters: 02/18/22 28.48 kg/m?? Prepregnancy weight: 72.6 kg (160 lb) BMI before : 27.45 Height: 162 cm 14w4d Wt gain: 2.722 kg (6 lb) Weight Gain Goal: 15-20 lb lbs toward 175-180 lbs @ full term Supplements: does not take , made her nauseous in her last ASSESSMENT/PLAN: Nutrition Needs currently assessed at: 2400 kcal/day The nutrition plan for patient was based on a nutrition assessment, with guidance from the Dietary Reference Intakes for all women (minimum of 175 grams of carbohydrate, 71 grams of protein,and 28 grams of fiber) in 3 meals and 1 - 3 snacks. Nutrition Assessment: Inadequate intake due to nausea, fatigue, depression (?) Goals of MNT: 1 - Adequate intake for , usual intake was reviewed and modifications for healthy alternatives reviewed 2 - Weight gain of 15-20 lb @ full term delivery. Disease and Wellness education: Regular meals and snacks with a variety of food groups for balanced intake Recommend more fruit, maybe blend them into your almond milk or Ensure Calcium needs reviewed, gets enough is she does drink her Ensure and eats yogurt More vegetable recommended, especially leafy greens if she does not want a Iron intake and intake of vit C reviewed Deli meat and food safety reviewed, alternatives discussed Fish intake reviewed Handout: Healthy Eating during Comprehension/Compliance: Patient verbalized understanding of diet instruction. Recommend: iron supplementation Follow Up: JUANI Buckner RD, LD documented in this encounter Plan of Treatment Upcoming Encounters Date Type Department Care Team (Late st Contact Info) Description 09/21/2024 8:15 AM EST Routine Obstetrics [place] [address] Emili Cabrera MD [facility] [place] [address] 09/26/2024 6:00 PM EST Appointment [facility] [place] [address] 10/16/2024 [place] [phone] Dudley Aguilar MD [facility] OBSTETRICS [place] [address] 11/08/2024 10:00 AM EST Hospital Encounter Non[place] [address] Arrived Scheduled Referrals Name Type Priority Associated Diagnoses Orde r Schedule Referral to Nutrition Services Outpatient Referral Routine , unspecified gestational age Coronary artery vasospasm Ordered: 01/29/2022 documented as of this encounter Visit Diagnoses Diagnosis , unspecified gestational age documented in this encounter Care Teams Reinforced Concrete Inspector Relationship Specialty Start Date End Date Kenia Lawrence, OXIDE FURNACE TENDER [address] [place] [address] PCP - General Family Medicine 10/10/21 05/20/22 documented as of this encounter
--- OUTSIDE RECORDS SUMMARY | 2024-09-20 11:07 | XMS_ITS | Encounter Summary ---
Author Organization [facility] Address [facility] [place] [address] Care Team Providers Care Jewelry Polisher Name Role Phone MelindaKenia ford ADRIAN Primary Care Provider +1- [phone] Encounter Details Date Type Department Care Team (Latest Contact Info) Description 04/09/2022 10:30 AM EDT - 04/09/2022 11:59 PM EDT Hospital [place] [address] Romana Torres MD [facility] [address] OBSTET[place]ICS [place] [address] Advanced maternal age, 1st , second trimester Discharge Disposition: Home Social History Tobacco [...] End Date fluticasone propionate (Flonase) 50 mcg/actuation [place], SuspensionIndications: allergic rhinitis 1 spray by Each [...] Take 1 tablet by mouth as needed. clonazePAM (KlonoPIN) 1 mg Tablet Take 1 mg by mouth 3 times daily as needed. 12/23/2021 03/02/2024 amLODIPine (Norvasc) 10 mg Tablet Take 0.5 tablets by mouth 2 times daily. 90 tablet 3 01/01/2022 05/14/2022 isosorbide mononitrate CR (Imdur) 30 mg Tablet Sustained Release 24 hrIndications:Angina pectoris with documented spasm Take 0.5 tablets by mouth daily. 90 tablet 3 01/01/2022 04/26/2022 Hydrocortisone 0.5 % Lotion Every 12 hours. [...] DAILY ON AN EMPTY STOMACH 10/11/2020 08/12/2023 diphenhydrAMINE/alumin um-magnesium hydroxide with simethicone/lidocaine (BMX) (6.67 mg-0.83 mg-13.33 mg-1.33 mg/mL) oral liquid Take by mouth. 022 documented as of this encounter Plan of Treatment Upcoming Encounters Date Type Department Care Team (Late st Contact Info) Description 09/21/2024 8:15 AM EST Routine Obstetrics [place] [phone] Emili Cabrera MD [facility] [place] [address] 09/26/2024 6:00 PM EST Appointment [facility] [place] [address] 10/16/2024 [place] [address] Dudley Aguilar MD [facility] DR OBSTETRICS [place] [address] 11/08/2024 10:00 AM EST Hospital Encounter [place] [address] Arrived documented as of this encounter Procedures Procedure Name Priority Date/Time Associated Diagnosis Comments US OB MORPHOLOGY LIMITED Routine 04/09/2022 11:04 AM EDT Advanced maternal age, 1st , second trimester documented in this encounter Results * US OB Morphology Limited (04/09/2022 11:04 AM EDT) Anatomical Region Laterality Modality Ultrasound 04/09/2022 10:3 9 AM EDT Impressions 04/09/2022 11:09 AM EDT Limited Morphology Summary Single intrauterine with a gestational age of 21w 5d based on LMP ??(11/08/21) Amniotic fluid is subjectively normal for gestational age Limited detailed evaluation was performed to complete anatomical survey. ??Views of the ductal arch remain incomplete. Thank you for letting us participate in the care of this patient. If you are a health care provider and have any questions regarding this report, please contact the number above. For patients who have questions, please contact the health caregiver assisted living that requested your imaging first. ?Romana Torres, Inbound Customer Service Agent Electronically Signed Final Report ?? 04/09/2022 11:09 am Narrative 04/09/2022 11:09 AM EDT OBSTETRICS REPORT ?(Signed Final 04/09/2022 11:09 am) PATIENT INFO: ID #: ? [id number] ?: ??[birth year] (36 yrs)(F) Name: ? JOSE JUAN LUQUE ? Visit Date: 04/09/2022 10:39 am PERFORMED BY: Performed By: ? Madalyn Curtis RDMS Attending: ?Brian LOUISE, Romana Banks Referred By: ?ROMANA TORRES Location: ? [place] SERVICE(S) PROVIDED: UOBMORPLIM - ??Incomplete Morphology Limited - ? [id number] INDICATIONS: 21 weeks gestation of ?Z3A.21 incomplete morphology VITAL SIGNS: Height: ?5'4 EVALUATION: Num Of Fetuses: ? 1 Heart Rate(bpm): ??149 Cardiac Activity: ? Observed, normal rhythm Presentation: ? Breech Placenta: ? Posterior Amniotic Fluid ALPHONSO FV: ?Subjectively normal for gestational age --------- BIOMETRY: --------- OB HISTORY: : ?1 GESTATIONAL AGE: LMP: ? 21w 5d ?Date: ??11/08/21 ? NAZIA: ?? 08/15/22 Best: ?21w 5d ?? Det. By: ??LMP ??(11/08/21) ?NAZIA: ?? 08/15/22 -------- ANATOMY: -------- Heart: ? 4- chamber view appears normal Stomach: ? Visualized Kidneys: ? Visualized Bladder: ? Visualized TARGETED ANATOMY: Spine Cervical: ?Visualized Thoracic: ?Visualized Lumbar: ?Visualized Sacral: ?Visualized Shape/Curvature: ? Visualized Thorax Aortic Arch: ? Visualized Ductal Arch: ? Limited Views SVC: ? Visualized IVC: ? Visualized Procedure Note Romana Torres MD - 04/09/2022 OBSTETRICS REPORT (Signed Final 04/09/2022 11:09 am) PATIENT INFO: ID #: [id number] : [birth year] (36 yrs)(F) Name: JOSE JUAN LUQUE Visit Date: 04/09/2022 10:39 am PERFORMED BY: Performed By: Madalyn Curtis RDMS Attending: Romana Torres MD Referred By: ROMANA TORRES Location: [place] SERVICE(S) PROVIDED: UOBMORPLIM - Incomplete Morphology Limited - [id number] INDICATIONS: 21 weeks gestation of Z3A.21 incomplete morphology VITAL SIGNS: Height: 5'4 EVALUATION: Num Of Fetuses: 1 Heart Rate(bpm): 149 Cardiac Activity: Observed, normal rhythm Presentation: Breech Placenta: Posterior Amniotic Fluid ALPHONSO FV: Subjectively normal for gestational age --------- BIOMETRY: --------- OB HISTORY: : 1 GESTATIONAL AGE: LMP: 21w 5d Date: 11/08/21 NAZIA: 08/15/22 Best: 21w 5d Det. By: LMP (11/08/21) NAZIA: 08/15/22 -------- ANATOMY: -------- Heart: 4- chamber view appears normal Stomach: Visualized Kidneys: Visualized Bladder: Visualized TARGETED ANATOMY: Spine Cervical: Visualized Thoracic: Visualized Lumbar: Visualized Sacral: Visualized Shape/Curvature: Visualized Thorax Aortic Arch: Visualized Ductal Arch: Limited Views SVC: Visualized IVC: Visualized IMPRESSION Limited Morphology Summary Single intrauterine with a gestational age of 21w 5d based on LMP (11/08/21) Amniotic fluid is subjectively normal for gestational age Limited detailed evaluation was performed to complete anatomical survey. Views of the ductal arch remain incomplete. Thank you for letting us participate in the care of this patient. If you are a health care provider and have any questions regarding this report, please contact the number above. For patients who have questions, please contact the health caregiver assisted living that requested your imaging first. Romana Torres, Inbound Customer Service Agent Electronically Signed Final Report 04/09/2022 11:09 am Romana Torres MD IMG OB ORDERABLES documented in this encounter Visit Diagnoses Diagnosis Advanced maternal age, 1st , second trimester documented in this encounter Care Teams Jewelry Polisher Relationship Specialty Start Date End Date Kenia Lawrence APRN [address] [place] [address] PCP - General Family Medicine 10/10/21 05/20/22 documented as of this encounter
--- OUTSIDE RECORDS SUMMARY | 2024-09-20 11:07 | XMS_ITS | Encounter Summary ---
Author Organization [facility] Address [facility] [place] [address] Care Team Providers Care Mathematics Teacher Name Role Phone Kenia Lawrence ADRIAN Primary Care Provider +1- [phone] Encounter Details Date Type Department Care Team (Late st Contact Info) Description 02/01/2022 Orders Only Cardiology at [address] [address] Social History Tobacco Use Types [...] AM EST Routine Obstetrics [place] [address] Emili Cabrera MD [facility] [place]ERNAL [place] [address] 09/26/2024 6:00 PM EST Appointment [facility] [place] [address] 10/16/2024 [facility] [place] [address] Dudley Aguilar MD [facility] DR OBSTET[place]ICS [place] [address] 11/08/2024 10:00 AM EST Hospital Encounter Non[place] [address] Arrived documented as of this encounter Procedures Procedure Name Priority Date/Time Associated Diagnosis Comments CARDIAC DEVICE CHECK - REMOTE PATIENT INITIATED Routine 02/01/2022 11:39 AM EDT documented in this encounter Results * Cardiac device check - Remote Patient Initiated (02/01/2022 11:39 AM EDT) Pathologist [facility] Implantable Pulse Generator Type Defibrillator IDCO Implantable Pulse Generator Model A219 IDCO Implantable Pulse Generator Serial Number [id number] IDCO Implantable Pulse Generator Plastic Production Machine Setter [employer] IDCO Implantable Pulse Generator Implant Date [id number] IDCO Date Time Interrogation Session IDCO Type Interrogation Session Remote Patient Initiated IDCO Clinic Name [facility] IDCO Battery Date Time of Measurements IDCO Battery Status Beginning of Service IDCO Battery Remaining Percentage 99 IDCO Tachy Therapy Setting Ventricular Status On [...] IDCO Episode Statistic Recent Date Time Start 20211128 IDCO Episode Statistic Recent Date Time End 20220201 IDCO Episode Statistic Total Count 0 IDCO Episode Statistic Total Date Time Start 20211112 IDCO Episode Statistic Total Date Time End 20220201 IDCO Episode Statistic Type Category VF IDCO Episode Statistic Vendor Type Category VF IDCO Episode Statistic Recent Count 0 IDCO Episode Statistic Recent Date Time Start 20211128 IDCO Episode Statistic Recent Date Time End 20220201 IDCO Episode Statistic Total Count 0 IDCO Episode Statistic Total Date Time Start 20211112 IDCO Episode Statistic Total Date Time End 20220201 IDCO Therapy Statistic Recent Date Time Start 20211128 IDCO Therapy Statistic Recent Date Time End 20220201 IDCO Therapy Statistic Recent Shocks Delivered 0 IDCO Therapy Statistic Total Date Time Start 20211112 IDCO Therapy Statistic Total Date Time End 20220201 IDCO Therapy Statistic Total Shocks Delivered 1 IDCO Implantable Lead Model 3501 IDCO Implantable Lead Serial Number [id number] IDCO Implantable Lead Plastic Production Machine Setter [employer] IDCO Implantable Lead Location Other IDCO Implantable Lead Location Detail 1 Subcutaneous IDCO Anatomical Region Laterality Modality Other 02/01/2022 11:3 9 AM EDT Physician Cardiology IMPLANTABLE CARD IAC DEVICE documented in this encounter Visit Diagnoses Not on filedocumented in this encounter Care Teams Mathematics Teacher Relationship Specialty Start Date End Date Kenia Lawrence APRN [address] [place] [address] PCP - General Family Medicine 10/10/21 05/20/22 documented as of this encounter
--- OUTSIDE RECORDS SUMMARY | 2024-09-20 11:07 | XMS_ITS | Encounter Summary ---
Author Organization [facility] Address [facility] [place] [address] Care Team Providers Care Airplane Flight Attendant Supervisor Name Role Phone MelindaKenia ford ADRIAN Primary Care Provider +1- [phone] Encounter Details Date Type Department Care Team (Late st Contact Info) Description 02/28/2022 2:45 PM EDT Routine Obstetrics [place] [address] Romana Torres MD [facility] DR OBSTETRICS [place] [address] GA: 16w0d Social History Tobacco Use Types Packs/Day Years [...] Sign Reading Time Taken Comments Blood Pressure 114/74 02/28/2022 2:51 PM EDT Pulse - - Temperature - - Respiratory Rate - - Oxygen Saturation - - Inhaled Oxygen Concentration - - Weight 74.4 kg (164 lb) 02/28/2022 2:51 PM EDT Height - - Body Mass Index 28.14 02/13/2022 11:00 AM EDT documented in this encounter Progress Notes * Romana Torres MD - 02/28/2022 2:45 PM EDT Add on visit Complains of lower abdominal and back pain. She is not bleeding but does worry that she is leaking clear fluid. No fever or chills. Has had multiple bowel movements. No dysuria Patient Vitals for the past 24 hrs: BP 02/28/22 1451 114/74 Appears in pain, bent over No CVAT Abd soft and nontender to palpation. Uterus soft Pelvic: ext normal Spec: mucoid discharge, normal cervix VE: closed long firm high Bedside US: normal fluid, active fetus, normal FHR Imp: I am not certain about source of pain potentially irritable bowel or a gastroenteritis. There is no evidence for cervical insufficiency or miscarriage. Plan: UA with reflex Keep appointments in place. Romana Torres MD documented in this encounter Miscellaneous Notes * Addendum Note - Estefanía Hassan CCMA - 02/28/2022 2:45 PM EDTAddended by: ESTEFANÍA HASSAN on: 02/28/2022 03:38 PM Modules accepted: Orders documented in this encounter Plan of Treatment Upcoming Encounters Date Type Department Care Team (Late st Contact Info) Description 09/21/2024 8:15 AM EST Routine Obstetrics [place] [address] Emili Cabrera MD [facility] [place] [address] 09/26/2024 6:00 PM EST Appointment [facility] [place] [address] 10/16/2024 Hospital Encounter [facility] [place] [address] Dudley Aguilar MD [facility] DR OBSTETRICS [place] [address] 11/08/2024 10:00 AM EST Hospital Encounter Non-[place] [address] Arrived documented as of this encounter Procedures Procedure Name Priority Date/Time Associated Diagnosis Comments HC URINE CULTURE Routine 02/28/2022 2:45 PM EDT Lower abdominal pain documented in this encounter Results * Urine culture Clean Catch Urine (02/28/2022 2:45 PM EDT) Urine Culture 10,000-49,000 cfu/ml Normal mucosal al Susceptibilit y testing not routinely performed for Coagulase Negative Staphylococcu s species and other Gram Positive organisms from urine. [facility] Clean Catch Urine 02/28/2022 2:45 PM EDT 02/28/2022 4:45 PM EDT Narrative Resulting Agency Comment Spec In Lab Romana Torres MD MICROBIOLOGY - GENER AL ORDERABLES [facility] [place] [address] documented in this encounter Visit Diagnoses Diagnosis Lower abdominal pain Abdominal pain, other specified site documented in this encounter Care Teams Airplane Flight Attendant Supervisor Relationship Specialty Start Date End Date Kenia Lawrence APRN [address] [place] [address] PCP - General Family Medicine 10/10/21 05/20/22 documented as of this encounter
--- OUTSIDE RECORDS SUMMARY | 2024-09-20 11:07 | XMS_ITS | Encounter Summary ---
Author [facility] [place] [address] Care Team Providers Care Tugboat Captain Name Role Phone MelindaKenia ford ADRIAN Primary Care Provider +1- [phone] Encounter Details Date Type Department Care Team (Late st Contact Info) Description 04/10/2022 Telephone Obstetrics [place] [address] Carey Ibarra RN Social History Tobacco Use [...] Telephone Encounter - Carey Ibarra RN - 04/10/2022 5:10 PM EDT Returned call to Aniya Luque, : 1985, GA: 21w6d after receiving voicemail requesting call back. (no info in voicemail regarding subject or concern) Attempted to return call, no answer. Left discreet VM for callback. documented in this encounter Plan of Treatment Upcoming Encounters Date Type Department Care Team (Late st Contact Info) Description 09/21/2024 8:15 AM EST Routine Obstetrics [place] [address] Emili Cabrera MD [facility] DR MATERNAL [place] [address] 09/26/2024 6:00 PM EST Appointment [facility] [place] [address] 10/16/2024 [place] [address] Dudley Aguilar MD [facility] DR OBSTETRICS [place] [address] 11/08/2024 10:00 AM EST Hospital Encounter [place] [address] Arrived documented as of this encounter Visit Diagnoses Not on filedocumented in this encounter Care Teams Tugboat Captain Relationship Specialty Start Date End Date Kenia Lawrence APRN [address] [place] [address] PCP - General Family Medicine 10/10/21 05/20/22 documented as of this encounter
--- OUTSIDE RECORDS SUMMARY | 2024-09-20 11:07 | XMS_ITS | Encounter Summary ---
Author Organization [facility] Address [facility] [place] [address] Care Team Providers Care Veterinary Technology Instructor Name Role Phone Kenia Lawrence APRN Primary Care Provider +1- [phone] Encounter Details Date Type Department Care Team (Latest Contact Info) Description 03/26/2022 8:00 AM EDT - 03/26/2022 11:59 PM EDT Hospital Encounter [place] [address] Yudi Oliveira MD [facility] [address] [place] [address] , unspecified gestational age; Coronary artery vasospasm Discharge Disposition: Home Social History Tobacco Use [...] End Date fluticasone propionate (Flonase) 50 mcg/actuation [place], SuspensionIndications: allergic rhinitis 1 spray by Each [...] Take 1 tablet by mouth as needed. metroNIDAZOLE (FlagyL) 250 mg TabletIndications:BV (bacterial vaginosis) Take 1 tablet by mouth 3 times daily for 7 days. 21 tablet 03/26/2022 04/02/2022 clonazePAM (KlonoPIN) 1 mg Tablet Take 1 [...] AM EST Routine Obstetrics [place] [phone] Emili Cabrera MD [facility] [address] [place] [address] 09/26/2024 6:00 PM EST Appointment [facility] [place] [phone] 10/16/2024 Hospital [place] [address] Dudley Aguilar MD [facility] [address] [place] [address] 11/08/2024 10:00 AM EST Hospital Encounter [place] [address] Arrived documented as of this encounter Procedures Procedure Name Priority Date/Time Associated Diagnosis Comments US OB DETAILED MORPHOLOGY Routine 03/26/2022 9:12 AM EDT , unspecified gestational age Coronary artery vasospasm documented in this encounter Results * US OB Detailed Morphology (03/26/2022 9:12 AM EDT) Anatomical Region Laterality Modality Pelvis, Abdomen Ultrasound 03/26/2022 9:09 AM EDT Impressions 03/26/2022 9:20 AM EDT 2nd Trimester - Detailed Morphology - Summary Single intrauterine with a gestational age of 19w 5d based on LMP ??(11/08/21) Composite age based on the current ultrasound alone is 19w 4d. Current growth parameters are consistent with prior dating indicating normal growth. Amniotic fluid volume is Subjectively normal for gestational age Detailed anatomic evaluation was performed and no structural abnormalities are noted. Limited visualization of ductal arch, IVC/SVC and spine due to position. Thank you for letting us participate in the care of this patient. If you are a health care provider and have any questions regarding this report, please contact the number above. For patients who have questions, please contact the health school child care attendant that requested your imaging first. ?Floyd Wang, Staff Physician Electronically Signed Final Report ?? 03/26/2022 09:19 am Narrative 03/26/2022 9:20 AM EDT OBSTETRICS REPORT ?(Signed Final 03/26/2022 09:19 am) PATIENT INFO: ID #: ? [id number] ?: ??[birth year] (36 yrs)(F) Name: ? JOSE JUAN LUQUE ? Visit Date: 03/26/2022 09:09 am PERFORMED BY: Performed By: ? Arcelia Coles RDMS Attending: ?Kathleen LOUISE, Floyd Seth Referred By: ?Yudi OLIVEIRA Location: ? [place] SERVICE(S) PROVIDED: [facility] - Detailed Morphology - [id number] ? [id number] INDICATIONS: 19 weeks gestation of ?Z3A.19 maternal CAD; anatomy VITAL SIGNS: Height: ?5'4 EVALUATION: Num Of Fetuses: ? 1 Heart Rate(bpm): ??150 Cardiac Activity: ? Observed, normal rhythm Presentation: ? Breech Placenta: ? Anterior P. Cord Insertion: ?Within Normal Limits Amniotic Fluid ALPHONSO FV: ?Subjectively normal for gestational age --------- BIOMETRY: --------- BPD: ?44.1 ??mm ? G.Age: ?? 19w 2d OFD: ?57.9 ??mm HC: ?163.4 ??mm ? G.Age: ?? 19w 1d AC: ?155.6 ??mm ? G.Age: ?? 20w 5d FL: ? 29.6 ??mm ? G.Age: ?? 19w 1d HUM: ?27.8 ??mm ? G.Age: ?? 18w 6d CER: ?19.6 ??mm ? G.Age: ?? 18w 6d NFT: ?2.56 ??mm NB: ?5.7 ??mm LV: ?6.3 ??mm CM: ?5.3 ??mm CI: ?76.2 ??% ? 70 - 86 FL/HC: ? 18.1 ??% ? 16.8 - 19.8 HC/AC: ? 1.05 ?1.09 - 1.39 FL/BPD: ?67.1 ??% FL/AC: ? 19.0 ??% ? - Est. FW: ? 318 ??gm ?0 lb 11 oz OB HISTORY: : ?1 GESTATIONAL AGE: LMP: ? 19w 5d ?Date: ??11/08/21 ? NAZIA: ?? 08/15/22 U/S Today: ? 19w 4d ?NAZIA: ?? 08/16/22 Best: ?19w 5d ?? Det. By: ??LMP ??(11/08/21) ?NAZIA: ?? 08/15/22 TARGETED ANATOMY: Central Nervous System Calvarium/Cranial V.: ??Within Normal Limits Intracranial Monica: ? Within Normal Limits Cavum: ? Within Normal Limits Parenchyma: ?Within Normal Limits Lateral Ventricles: ?Within Normal Limits Choroid Plexus: ?Within Normal Limits Cereb./Vermis: ? Within Normal Limits Cisterna Magna: ?Within Normal Limits Midline Falx: ?Within Normal Limits Spine Cervical: ?Visualized Thoracic: ?Visualized Lumbar: ?Visualized Sacral: ?Limited Views Shape/Curvature: ? Visualized Head/Neck Face: ?Within Normal [...] Aortic Arch: ? Visualized Ductal Arch: ? Not Visualized SVC: ? Not visualized Cardiac Pembroke: ?Visualized Diaphragm: ? Visualized 3 Vessel View: ? Visualized 3 V Trachea View: ?Visualized IVC: ? Not visualized Crossing: ?Visualized Abdomen Ventral Wall: ?Visualized Cord [...] Rt Foot: ? Visualized Other Umbilical Cord: ?3 vessel cord Genitalia: ? Visualized CERVIX UTERUS ADNEXA: Right Ovary Size(cm) ? 2.7 ??x ?? 1.8 ?x ??1.4 ? Vol(ml): 3.6 Visualized Left Ovary Size(cm) ? 2.5 ??x ?? 1.6 ?x ??1.7 ? Vol(ml): 3.6 Visualized Procedure Note Floyd Wang MD - 03/26/2022 OBSTETRICS REPORT (Signed Final 03/26/2022 09:19 am) PATIENT INFO: ID #: [id number] : [birth year] (36 yrs)(F) Name: JOSE JUAN LUQUE Visit Date: 03/26/2022 09:09 am PERFORMED BY: Performed By: Arcelia Coles RDMS Attending: Floyd Wang MD Referred By: [facility] Location: [place] SERVICE(S) PROVIDED: [facility] - Detailed Morphology - [id number] INDICATIONS: 19 weeks gestation of Z3A.19 maternal CAD; anatomy VITAL SIGNS: Height: 5'4 EVALUATION: Num Of Fetuses: 1 Heart Rate(bpm): 150 Cardiac Activity: Observed, normal rhythm Presentation: Breech Placenta: Anterior P. Cord Insertion: Within Normal Limits Amniotic Fluid ALPHONSO FV: Subjectively normal for gestational age --------- BIOMETRY: --------- BPD: 44.1 mm G.Age: 19w 2d OFD: 57.9 mm HC: 163.4 mm G.Age: 19w 1d AC: 155.6 mm G.Age: 20w 5d FL: 29.6 mm G.Age: 19w 1d HUM: 27.8 mm G.Age: 18w 6d CER: 19.6 mm G.Age: 18w 6d NFT: 2.56 mm NB: 5.7 mm LV: 6.3 mm CM: 5.3 mm CI: 76.2 % 70 - 86 FL/HC: 18.1 % 16.8 - 19.8 HC/AC: 1.05 1.09 - 1.39 FL/BPD: 67.1 % FL/AC: 19.0 % 20 - 24 Est. FW: 318 gm 0 lb 11 oz OB HISTORY: : 1 GESTATIONAL AGE: LMP: 19w 5d Date: 11/08/21 NAZIA: 08/15/22 U/S Today: 19w 4d NAZIA: 08/16/22 Best: 19w 5d Det. By: LMP (11/08/21) NAZIA: 08/15/22 TARGETED ANATOMY: Central Nervous System Calvarium/Cranial V.: Within Normal Limits Intracranial Monica: Within Normal Limits Cavum: Within Normal Limits Parenchyma: Within Normal Limits Lateral Ventricles: Within Normal Limits Choroid Plexus: Within Normal Limits Cereb./Vermis: Within Normal Limits Cisterna Magna: Within Normal Limits Midline Falx: Within Normal Limits Spine Cervical: Visualized Thoracic: Visualized Lumbar: Visualized Sacral: Limited Views Shape/Curvature: Visualized Head/Neck Face: Within Normal Limits Lips: Within Normal Limits Neck: Within Normal Limits Nuchal Fold: Within Normal Limits Nasal Bone: Present Profile: Visualized Orbits/Eyes: Visualized Mandible: Visualized Maxilla: Visualized Thorax Thoracic Contour: Within Normal Limits Lungs: Visualized 4 Chamber View: Within Normal Limits Cardiac Activity: Normal Rhythm Rt Outflow Tract: Visualized Lt Outflow Tract: Visualized Aortic Arch: Visualized Ductal Arch: Not Visualized SVC: Not visualized Cardiac Pembroke: Visualized Diaphragm: Visualized 3 Vessel View: Visualized 3 V Trachea View: Visualized IVC: Not visualized Crossing: Visualized Abdomen Ventral Wall: Visualized Cord [...] Visualized Rt Foot: Visualized Other Umbilical Cord: 3 vessel cord Genitalia: Visualized CERVIX UTERUS ADNEXA: Right Ovary Size(cm) 2.7 x 1.8 x 1.4 Vol(ml): 3.6 Visualized Left Ovary Size(cm) 2.5 x 1.6 x 1.7 Vol(ml): 3.6 Visualized IMPRESSION 2nd Trimester - Detailed Morphology - Summary Single intrauterine with a gestational age of 19w 5d based on LMP (11/08/21) Composite age based on the current ultrasound alone is 19w 4d. Current growth parameters are consistent with prior dating indicating normal growth. Amniotic fluid volume is Subjectively normal for gestational age Detailed anatomic evaluation was performed and no structural abnormalities are noted. Limited visualization of ductal arch, IVC/SVC and spine due to position. Thank you for letting us participate in the care of this patient. If you are a health care provider and have any questions regarding this report, please contact the number above. For patients who have questions, please contact the health school child care attendant that requested your imaging first. Floyd Wang, Staff Physician Electronically Signed Final Report 03/26/2022 09:19 am E Luz Oliveira MD IMG OB ORDERAB LES documented in this encounter Visit Diagnoses Diagnosis , unspecified gestational age Coronary artery vasospasm Prinzmetal angina documented in this encounter Care Teams Veterinary Technology Instructor Relationship Specialty Start Date End Date Kenia Lawrence APRN [address] [place] [address] PCP - General Family Medicine 10/10/21 05/20/22 documented as of this encounter
--- OUTSIDE RECORDS SUMMARY | 2024-09-20 11:07 | XMS_ITS | Encounter Summary ---
Author Organization [facility] Address [facility] [place] [address] Care Team Providers Care Crossband Layer Name Role Phone MelindaKenia ford ADRIAN Primary Care Provider +1- [phone] Reason for Visit * Reason Comments Routine Visit Encounter Details Date Type Department Care Team (Late st Contact Info) Description 03/26/2022 9:00 AM EDT Routine Obstetrics [place] [address] Romana Torres MD [facility] [address] OBSTET[place] [address] GA: 19w5d Social History Tobacco Use Types Packs/Day Years [...] Sign Reading Time Taken Comments Blood Pressure 124/76 03/26/2022 9:17 AM EDT Pulse - - Temperature - - Respiratory Rate - - Oxygen Saturation - - Inhaled Oxygen Concentration - - Weight 74.4 kg (164 lb 1.6 oz) 03/26/2022 9:17 A M EDT Height - - Body Mass Index 28.15 02/13/2022 11:00 AM EDT documented in this encounter Progress Notes * Romana Torres MD - 03/26/2022 9:00 AM EDT She denies bleeding, leaking of fluid, pain or regular contractions. She notes good movement.Persistent intermittent lowe abdominal and back pain. Has fishy smelling vaginal discharge Has some pounding in her ears with her heart beating. Home heart rate max 101. Usually 80-90. No dyspnea. Some nights has dependent edema. Patient Vitals for the past 24 hrs: BP 03/26/22 0917 124/76 US: normal growth and morph except some missing views Plan RTC 2 weeks with US Rx Flagyl 250 mg tid x 7 days ERB documented in this encounter Plan of Treatment Upcoming Encounters Date Type Department Care Team (Late st Contact Info) Description 09/21/2024 8:15 AM EST Routine Obstetrics [place] [address] Emili Cabrera MD [facility] [place] [address] 09/26/2024 6:00 PM EST Appointment [facility] [place] [address] 10/16/2024 [place] [address] Dudley Aguilar MD [facility] OBSTET[place] [address] 11/08/2024 10:00 AM EST Hospital Encounter Non-[place]vasive [place] [address] Arrived documented as of this encounter Results * US OB Morphology [...] who have questions, please contact the health team primary care physician that requested your imaging first. ?Romana Torres, Poker Dealer Electronically Signed Final Report ?? 04/09/2022 11:09 am Narrative 04/09/2022 11:09 AM EDT OBSTETRICS REPORT ?(Signed Final 04/09/2022 11:09 am) PATIENT INFO: ID #: ? [id number] ?: ??[birth year] (36 yrs)(F) Name: ? JOSE JUAN LUQUE ? Visit Date: 04/09/2022 10:39 am PERFORMED BY: Performed By: ? Madalyn Curtis RDMS Attending: ?Brian LOUISE, Romana Banks Referred By: ?ROMANA TORRES Location: ? [place] SERVICE(S) PROVIDED: UOBMORPLIM - ??Incomplete Morphology Limited - ? [id number] INDICATIONS: 21 weeks gestation of ?Z3A.21 incomplete [...] 04/09/2022 11:09 am) PATIENT INFO: ID #: [id number] : [birth year] (36 yrs)(F) Name: JOSE JUAN LUQUE Visit Date: 04/09/2022 10:39 am PERFORMED BY: Performed By: Madalyn Curtis RDMS Attending: Romana Torres MD Referred By: ROMANA TORRES Location: [place] SERVICE(S) PROVIDED: UOBMORPLIM - Incomplete Morphology Limited - [id number] INDICATIONS: 21 weeks gestation of Z3A.21 incomplete [...] who have questions, please contact the health team primary care physician that requested your imaging first. Romana Torres, Poker Dealer Electronically Signed Final Report 04/09/2022 11:09 am Romana Torres MD IMG OB ORDERABLES documented in this encounter Visit Diagnoses Diagnosis BV (bacterial vaginosis) Vaginitis and vulvovaginitis, unspecified Advanced maternal age, 1st , second trimester Advanced maternal age, 1st , second trimester documented in this encounter Care Teams Crossband Layer Relationship Specialty Start Date End Date Kenia Lawrence, ADRIAN [address] [place] [address] PCP - General Family Medicine 10/10/21 05/20/22 documented as of this encounter
--- OUTSIDE RECORDS SUMMARY | 2024-09-20 11:07 | XMS_ITS | Encounter Summary ---
Author Organization [facility] [place] [address] Care Team Providers Care Pier Worker Name Role Phone MelindaKenia ford ADRIAN Primary Care Provider +1- [phone] Encounter Details Date Type Department Care Team (Latest Contact Info) Description 02/13/2022 10:30 AM EDT Office Visit Cardiology at [address] [address] Shannon Verdin RN Subcutaneous defibrillator implanted 11/12/2019 Social History Tobacco Use Types Packs/Day Years [...] Sign Reading Time Taken Comments Blood Pressure 124/84 02/13/2022 10:45 AM EDT Pulse 92 02/13/2022 10:45 AM EDT Temperature - - Respiratory Rate 14 02/13/2022 10:45 AM EDT Oxygen Saturation 100% 02/13/2022 10:45 AM EDT Inhaled Oxygen Concentration - - Weight 74.9 kg (165 lb 3.2 oz) 02/13/2022 10:45 AM EDT Height 162.6 cm (5' 4) 02/13/2022 10:45 AM EDT Body Mass Index 28.36 02/13/2022 10:45 AM EDT documented in this encounter Progress Notes * Shannon Verdin RN - 02/13/2022 10:30 AM EDT Images from the original note were not included. Clinical Electrophysiology Device Service Note Aniya Luque is a 36 y.o. female who presents today for a Sub Q ICD programming evaluation and wound check. The Sub Q ICD was implanted by Dr Yap on 11/12/2021 for secondary prevention. She had out of hospital cardiac arrest and CPR on 11/04/21. She has been complaining of discomfort to her SICD site a 03/29 today. The site looks well healed with no signs of infection or erosion. I showed her and her partner what the device looks like. She isconcerned that it feels like it is heating up and I explained it does not generate any heat or energy and just sits there and looks for any Ventricular arrhythmias and will convert life threatening ones with a shock. She is seeing Dr Zurita to follow. Barrelhead Inspector: Dr Ruiz EP: Dr Yap PCP: Kenia Lawrence APRN Final Parameters at implant: Ventricular electrode: SQ electrode Model 3501 Bipolar Serial Number [id number] Implanted 11/12/21 ?? Bipolar Subcutaneous ICD Lead Pulse generator: Emblem MRI S-ICD Pulse Generator Model A219 Serial Number [id number] Implanted 11/12/21 ?? Location: [id number], 5th to 6th intercostal space ?? Settings: Current Device Settings: Underlying rhythm: SR 98-106 bpm VHR: none Battery voltage: 99% Wound assessment: Left Flank Reprogramming: Iterative changes to assess device function Plan: Remote send manual once a week. RTC in 6 months Provider: Shannon Verdin RN Attending: Dr Rubi documented in this encounter Plan of Treatment Upcoming Encounters Date Type Department Care Team (Late st Contact Info) Description 09/21/2024 8:15 AM EST Routine Obstetrics [place] [address] Emili Cabrera MD [facility] [place] [address] 09/26/2024 6:00 PM EST Appointment [facility] [place] [address] 10/16/2024 Hospital [place] [address] Dudley Aguilar MD [facility] OBSTETRICS [place] [address] 11/08/2024 10:00 AM EST Hospital Encounter Non-[place] [address] Arrived documented as of this encounter Visit Diagnoses Diagnosis Subcutaneous defibrillator implanted 11/12/2019 documented in this encounter Care Teams Pier Worker Relationship Specialty Start Date End Date Kenia Lawrence APRN [address] [place] [address] PCP - General Family Medicine 10/10/21 05/20/22 documented as of this encounter
--- OUTSIDE RECORDS SUMMARY | 2024-09-20 11:07 | XMS_ITS | Encounter Summary ---
Author Organization [facility] [place] [address] Care Team Providers Care Horse Trader Name Role Phone MelindaKenia ford ADRIAN Primary Care Provider +1- [phone] Encounter Details Date Type Department Care Team (Late st Contact Info) Description 03/14/2022 Telephone Obstetrics [place] [phone] Carey Ibarra RN Social History Tobacco Use [...] Telephone Encounter - Carey Ibarra RN - 03/14/2022 9:15 AM EDT Returned call to Aniya Luque, : 1985, GA: 18w0d Primary Concern: abdominal tightening Aniya reports that she has been experiencing abdominal tightening since yesterday. Aniya reports that sometimes the abdominal tightening is quite painful. She reports it is worse with activity.She reports it is intermittent throughout the day. She is unable to report how often in a day she is experiencing this tightening but reports that in the 15 mins we were on the phone it happened twice. She reports she can feel her abdomen firm up and it lasts for about 1 min at a time. She reports that the pain radiates to her back. Aniya describes the pain in her back as aching she reports the pain is bilateral, low back. The pain goes up to a 7 when her abdomen tightens and down to a 4 when her abdomen relaxes. Aniya denies vaginal bleeding, pain or burning with urination, fever, chills, abnormal vaginal discharge or odor. Ainya reports normal BM today. Aniya reports she is drinking 32 to 64 ounces ofwater daily and about 32 ounces of Gatorade each day. Aniya reports seasonal allergies that she is taking zyrtec for. She reports she has been taking daily COVID tests all week, last negative test this morning. documented in this encounter Plan of Treatment Upcoming Encounters Date Type Department Care Team (Late st Contact Info) Description 09/21/2024 8:15 AM EST Routine Obstetrics [place] [address] Emili Cabrera MD [facility] [place] [address] 09/26/2024 6:00 PM EST Appointment [facility] [place] [address] 10/16/2024 [place] [phone] Dudley Aguilar MD [facility] [place] [address] 11/08/2024 10:00 AM EST Hospital Encounter Non-Invasive Card[place] [address] Arrived documented as of this encounter Visit Diagnoses Not on filedocumented in this encounter Care Teams Horse Trader Relationship Specialty Start Date End Date Kenia Lawrence APRN [address] [place] [address] PCP - General Family Medicine 10/10/21 05/20/22 documented as of this encounter
--- OUTSIDE RECORDS SUMMARY | 2024-09-20 11:07 | XMS_ITS | Encounter Summary ---
Author Organization [facility] [place] [address] Care Team Providers Care Route Inspector Name Role Phone Kenia Lawrence ADRIAN Primary Care Provider +1- [phone] Encounter Details Date Type Department Care Team (Late st Contact Info) Description 01/31/2022 Telephone Cardiology at [address] [phone] Faviola Schrader RN Social History Tobacco Use Types Packs/Day [...] encounter Miscellaneous Notes * Telephone Encounter - Faviola Schrader RN - 01/31/2022 9:15 AM EDT Patient message on 01/30/22- states she missed Dr. Zurita's call and is asking for a call back atthe following number- . Forwarded to Dr. Zurita for her consideration. Faviola Schrader RN, BSN Ambulatory Cardiology Department Covering for M. Red, RN documented in this encounter Plan of Treatment Upcoming Encounters Date Type Department Care Team (Late st Contact Info) Description 09/21/2024 8:15 AM EST Routine Obstetrics [place] [address] Emili Cabrera MD [facility] [place] [address] 09/26/2024 6:00 PM EST Appointment [facility] [place] [address] 10/16/2024 Hospital [place] [address] Dudley Aguilar MD [facility] DR OBSTETRICS [place] [address] 11/08/2024 10:00 AM EST Hospital Encounter Non-Invasive [place] [address] Arrived documented as of this encounter Visit Diagnoses Not on filedocumented in this encounter Care Teams Route Inspector Relationship Specialty Start Date End Date Kenia Lawrence APRN [address] [place] [address] PCP - General Family Medicine 10/10/21 05/20/22 documented as of this encounter
--- OUTSIDE RECORDS SUMMARY | 2024-09-20 11:07 | XMS_ITS | Encounter Summary ---
Author Organization [facility] Address [facility] [place] [address] Care Team Providers Care Bed Bug Exterminator Name Role Phone Kenia Lawrence ADRIAN Primary Care Provider +1- [phone] Encounter Details Date Type Department Care Team (Late st Contact Info) Description 02/01/2022 Orders Only Cardiology at [address] [address] Social History Tobacco Use Types [...] AM EST Routine Obstetrics [place] [address] Emili Cabrera MD [facility] [place] [address] 09/26/2024 6:00 PM EST Appointment [facility] [place] [address] 10/16/2024 [facility] [place] [address] Dudley Aguilar MD [facility] DR [place]STET[place] [address] 11/08/2024 10:00 AM EST Hospital Encounter Non-[place] [address] Arrived documented as of this encounter Procedures Procedure Name Priority Date/Time Associated Diagnosis Comments CARDIAC DEVICE CHECK - REMOTE PATIENT INITIATED Routine 02/01/2022 11:49 AM EDT documented in this encounter Results * Cardiac device check - Remote Patient Initiated (02/01/2022 11:49 AM EDT) Pathologist [facility] Implantable Pulse Generator Type Defibrillator IDCO Implantable Pulse Generator Model A219 ID[employer] Implantable Pulse Generator Serial Number [id number] [employer] Implantable Pulse Generator Superintendent [employer] IDCO Implantable Pulse Generator Implant Date [id number] IDCO Date Time Interrogation Session IDCO Type Interrogation Session Remote Patient Initiated IDCO Clinic Name [facility] IDCO Battery Date Time of Measurements [...] Model 3501 IDCO Implantable Lead Serial Number [id number] IDCO Implantable Lead Superintendent [employer] IDCO Implantable Lead Location Other IDCO Implantable Lead Location Detail 1 Subcutaneous IDCO Anatomical Region Laterality Modality Other 02/01/2022 11:4 9 AM EDT Physician Cardiology IMPLANTABLE CARD IAC DEVICE documented in this encounter Visit Diagnoses Not on filedocumented in this encounter Care Teams Bed Bug Exterminator Relationship Specialty Start Date End Date Kenia Lawrence APRN [address] [place] [address] PCP - General Family Medicine 10/10/21 05/20/22 documented as of this encounter
--- OUTSIDE RECORDS SUMMARY | 2024-09-20 11:07 | XMS_ITS | Encounter Summary ---
Author Organization [facility] [place] [address] Care Team Providers Care Utility Aircrewman Name Role Phone MelindaKenia ford ADRIAN Primary Care Provider +1- [phone] Reason for Visit * Reason Onset Date Comments Other 02/07/2022 ICD Encounter Details Date Type Department Care Team (Late st Contact Info) Description 02/07/2022 Telephone Cardiology at [address] [address] Carolina Rojo Other (ICD) Social History Tobacco Use Types Packs/Day Years [...] Notes * Telephone Encounter - Carolina Rojo, ACCOUNT RESOLUTION SPECIALIST - 02/07/2022 3:19 PM EDT Patient called the Device Clinic regarding her S ICD. She said it feels like its moved and it feelsbruised all away around it. I spoke to EDEN Samuels and she said that the patient has an appointment with Shannon Omalley RN on 02/13/22 and that we can evaluate it at that time. I relayed the information to the patient. documented in this encounter Plan of Treatment Upcoming Encounters Date Type Department Care Team (Late st Contact Info) Description 09/21/2024 8:15 AM EST Routine Obstetrics [place] [address] Emili Cabrera MD [facility] [place] [address] 09/26/2024 6:00 PM EST Appointment [facility] [place] [address] 10/16/2024 [place] [address] Dudley Aguilar MD [facility] DR OBSTETRICS [place] [address] 11/08/2024 10:00 AM EST Hospital Encounter [place] [address] Arrived documented as of this encounter Visit Diagnoses Not on filedocumented in this encounter Care Teams Utility Aircrewman Relationship Specialty Start Date End Date Kenia Lawrence APRN [address] [place] [address] PCP - General Family Medicine 10/10/21 05/20/22 documented as of this encounter
--- OUTSIDE RECORDS SUMMARY | 2024-09-20 11:07 | XMS_ITS | Encounter Summary ---
Author Organization [facility] Address [facility] [place] [address] Care Team Providers Care Early Childhood Special Educator Name Role Phone MelindaKenia ford ADRIAN Primary Care Provider +1- [phone] Encounter Details Date Type Department Care Team (Late st Contact Info) Description 02/18/2022 8:15 AM EDT Routine Obstetrics [place] [address] Romana Torres MD [facility] DR OBSTETRICS AND GYNECOLOGY [address] GA: [id number] Social History Tobacco Use Types [...] Sign Reading Time Taken Comments Blood Pressure 120/72 02/18/2022 8:08 AM EDT Pulse - - Temperature - - Respiratory Rate - - Oxygen Saturation - - Inhaled Oxygen Concentration - - Weight 75.3 kg (166 lb) 02/18/2022 8:08 AM EDT Height - - Body Mass Index 28.48 02/13/2022 11:00 AM EDT documented in this encounter Progress Notes * Romana Torres MD - 02/18/2022 8:15 AM EDT Feels OK Some pelvic pain with activity No bleeding We discussed her mood. She is in counseling but frustrated that all they do is listen'. She has taken medication before but acknowledges that she did not give it much time to see if it worked. We discussed the possibility of trauma disorder related to the cardiac arrest and hospitalization. She acknowledged that she has not processed this well. She remembers coming to [facility] and the fear that came with that. She tries not to think about it. She has profound anxiety when she palpates the defibrillator. I suggested we try to find her a new counselor with greater experience treating PTSD. I will try to do this. Patient Vitals for the past 24 hrs: BP 02/18/22 0808 120/72 Psychomotor retardation Fair eye contact Well groomed. Uncomplicated to date Plan She is looking forward to her appt with Dr. Brasher RTKendra 3 weeks and 6 weeks with US ERB documented in this encounter Plan of Treatment Upcoming Encounters Date Type Department Care Team (Late st Contact Info) Description 09/21/2024 8:15 AM EST Routine Obstetrics [place] [address] Emili Cabrera MD [facility] MATERNAL AND MEDICINE [address] 09/26/2024 6:00 PM EST Appointment [facility] [place] [address] 10/16/2024 Hospital Encounter [place] [address] Dudley Aguilar MD [facility] OBSTETRICS AND GYNECOLOGY [address] 11/08/2024 10:00 AM EST Hospital Encounter Non-Invasive [place] [address] Arrived documented as of this encounter Visit Diagnoses Diagnosis Advanced maternal age, 1st , second trimester documented in this encounter Care Teams Early Childhood Special Educator Relationship Specialty Start Date End Date Kenia Lawrence APRN [address] [place] [address] PCP - General Family Medicine 10/10/21 05/20/22 documented as of this encounter
--- OUTSIDE RECORDS SUMMARY | 2024-09-20 11:07 | XMS_ITS | Encounter Summary ---
Author Organization [place] [address] Care Team Providers Care Insurance Underwriter Name Role Phone MelindaKenia ford ADRIAN Primary Care Provider +1- [phone] Encounter Details Date Type Department Care Team (Late st Contact Info) Description 04/11/2022 Telephone Cardiology at [address] [phone] Leila Pettit, RN Social History Tobacco Use [...] Telephone Encounter - Leila Pettit RN - 04/11/2022 12:46 PM EDT Patient called to report she was not feeling well last night so she went to the [facility] ED and was released. She was told she had a low iron level and low potassium level and she was started on a vitamin. Patient is 22 weeks and an OB-FINANCIAL SERVICES PROFESSIONAL consult was done while patient was in the ED she says. Patient wondered why potassium supplements weren't ordered for her and she says she has not been onprenatal vitamins before. Today she says she still doesn't feel well- she is dizzy and shaky. She says she already put in a call to her OB-FINANCIAL SERVICES PROFESSIONAL and was waiting hear back. At this time she says she does not have a PCP. Will obtain records from [facility] and see what OB-FINANCIAL SERVICES PROFESSIONAL says. Patient was advised that if she continues to feel poorly she should return to the ED for evaluation ( no PCP) if she cannot be seen by her OB-FINANCIAL SERVICES PROFESSIONAL. Patient agrees with plan. Leila Daniel RNcorrectional substance abuse counselor Cardiovascular [facility] General Team-[place] documented in this encounter Plan of Treatment Upcoming Encounters Date Type Department Care Team (Late st Contact Info) Description 09/21/2024 8:15 AM EST Routine Obstetrics [place] [address] Emili Cabrera MD [facility] DR [place] [address] 09/26/2024 6:00 PM EST Appointment [facility] [place] [address] 10/16/2024 [place] [address] Dudley Aguilar MD [facility] DR OBSTETRICS [place] [address] 11/08/2024 10:00 AM EST Hospital Encounter Non-[place] [address] Arrived documented as of this encounter Visit Diagnoses Not on filedocumented in this encounter Care Teams Insurance Underwriter Relationship Specialty Start Date End Date Kenia Lawrence APRN [address] [place], [place] [id number] PCP - General Family Medicine 10/10/21 05/20/22 documented as of this encounter
--- OUTSIDE RECORDS SUMMARY | 2024-09-20 11:07 | XMS_ITS | Encounter Summary ---
Author Organization [facility] [place] [address] Care Team Providers Care Solids Control Technician Name Role Phone Melinda, Kenia Marilin CAMPBELL Primary Care Provider +1- [phone] Reason for Referral * Diagnostic Test (Routine) - Closed Specialty Diagnoses / Procedures Referred By Contac t Referred To Contact Diagnoses Abnormal ultrasound Procedures Echo Romana Torres MD [facility] DR [place] [address] [facility] [place] [address] Referral ID Status Reason Start Date Expiration Date V isits Requested Visits Authorized [id number] Closed Specialty Service Requested 04/09/2022 04/09/2023 1 1 Reason for Visit * Diagnostic Test (Routine) - Closed Specialty Diagnoses / Procedures Referred By Contac t Referred To Contact Diagnoses Abnormal ultrasound Procedures Echo Romana Torres MD [facility] [place] [address] [facility] [place] [address] Referral ID Status Reason Start Date Expiration Date V isits Requested Visits Authorized [id number] Closed Specialty Service Requested 04/09/2022 04/09/2023 1 1 Encounter Details Date Type Department Care Team (Latest Contact Info) Description 04/26/2022 10:00 AM EDT - 04/26/2022 11:59 PM EDT Hospital Encounter Non-Invasive Cardiology Lab [facility] [place] [address] Romana Torres MD [facility] DR [place] [address] Abnormal ultrasound Discharge Disposition: Home Social History Tobacco Use [...] End Date fluticasone propionate (Flonase) 50 mcg/actuation [place], SuspensionIndications: allergic rhinitis 1 spray by Each [...] Take 1 tablet by mouth as needed. lidocaine (Xylocaine) 2 % Solution TAKE 10 [...] times daily. 90 tablet 3 01/01/2022 05/14/2022 Hydrocortisone 0.5 % Lotion Every 12 hours. [...] AM EST Routine Obstetrics [place] [address] Emili Cabrera MD [facility] [place] [address] 09/26/2024 6:00 PM EST Appointment [facility] [place] [address] 10/16/2024 Hospital [place] [address] Dudley Aguilar MD [facility] DR [place] [address] 11/08/2024 10:00 AM EST Hospital Encounter Non-[place]vasive [place] [address] Arrived documented as of this encounter Procedures Procedure Name Priority Date/Time Associated Diagnosis Comments ECHO COMPLETE Routine 04/26/2022 1 1:02 AM EDT Abnormal ultrasound documented in this encounter Results * ECHO COMPLETE (04/26/2022 11:02 AM EDT) Anatomical Region Laterality Modality Cardiac Other 04/26/2022 10:1 9 AM EDT Narrative 04/26/2022 11:16 AM EDT ?Cardiovascular ?Laboratory ? [address] ?[place], [place] ? Phone [phone] ?Fax [phone] Echocardiogram Report Name: ANIYA LUQUE ? Study Date: 04/26/2022 ? Patient Location: : 1985 ? Gender: Female Age: 36 yrs Reason For Study: Abnormal OB ultrasound study Ordering Physician: ROMANA TORRES Referring Physician: ROMANA TORRES Performed By: Kaila Ham [facility] Interpretation Summary This is a 24 1/7 week fetus. The estimated due date is 08/15/2022. There is levocardia, visceral situs solitus and normal segmental anatomy {S,D,S}, with normal chamber dimension and wall motion. No major structural cardiac abnormalities were noted. Prenatally cannot exclude certain septal defects, coarctation of the aorta, partial pulmonary venous anomalies, coronary anomalies, subtle valve abnormalities nor predict the persistence of structures of circulation such as a PDA or PFO. The results of today's study were discussed with the patient. Please see office note regarding the details of this consultation. Position Single intrauterine . Cardiac Position Levocardia. Cardiac Segments {S,D,S}. Veins The inferior vena cava appears normal. The superior vena cava appears normal. There is no evidence of an LSVC. Color and spectral Doppler flow patterns of at least one right and one left pulmonary vein appear normal. Atria There is no evidence of right atrial enlargement. There is no evidence of left atrial dilatation. Mitral Valve The mitral valve appears normal. There is a normal biphasic inflow pattern across the valve. There is no evidence of mitral regurgitation by color and spectral Doppler. The mitral diameter at the annulus measures 0.59 cm (Z-score: -0.29). Tricuspid Valve The tricuspid valve appears normal. There is a normal biphasic inflow pattern across the valve. There is no evidence of tricuspid insufficiency. The tricuspid diameter at the annulus measures 0.65 cm (Z-score: 0.28). Left Ventricle The left ventricular cavity size appears normal. The left ventricular systolic function is qualitatively within normal limits. There is no evidence of left ventricular hypertrophy. There are no obvious segmental wall motion abnormalities. Right Ventricle The right ventricle is not dilated. There is no evidence of right ventricular hypertrophy. The right ventricular systolic function is qualitatively within normal limits. Interventricular/Interatrial Septum There is a moderate sized foramen ovale with right to left shunting by color Doppler. There is no evidence of a ventricular septal defect. Aortic Valve The aortic valve appears normal. There is no evidence of valvular aortic stenosis. There is no evidence of aortic insufficiency by color or spectral Doppler. The aortic diameter at the annulus is 0.4 cm (Z-score: -0.26). Pulmonic Valve The pulmonary valve appears normal. There is no evidence of valvular pulmonary stenosis. The pulmonary annulus measures 0.47 cm (Z-score: -0.56). Great Vessels The ascending aorta does not appear dilated. The descending thoracic aorta does not appear dilated. There is no evidence of coarctation of the aorta. The main pulmonary artery appears normal. The aortic isthmus measures 0.32 cm (Z-score: - 0.05). Circulation Normal Doppler flow pattern in the umbilical artery. The umbilicus has 2 umbilical arteries. There is a normal flow pattern in the umbilical vein. There is a normal flow pattern in the ductus venosus. There is normal intrauterine right to left flow across the ductus arteriosus. The heart rate is 155 bpm. The AV interval is 112 msec. The rhythm is regular. Pericardium and Pleura No pericardial effusion. ? Reading Physician:11:16 AM Procedure Note Kristina Schmidt MD - 04/26/2022 Cardiovascular Laboratory [address] [place], [place] Phone Fax Echocardiogram Report Name: ANIYA LUQUE Study Date: 04/26/2022 Patient Location: : 1985 Gender: Female Age: 36 yrs Reason For Study: Abnormal OB ultrasound study Ordering Physician: ROMANA TORRES Referring Physician: ROMANA TORRES Performed By: Kaila Ham [facility] Interpretation Summary This is a 24 1/7 week fetus. The estimated due date is 08/15/2022. Thereis levocardia, visceral situs solitus and normal segmental anatomy {S,D,S},with normal chamber dimension and wall motion. No major structural cardiac abnormalities were noted. Prenatally cannot exclude certain septaldefects, coarctation of the aorta, partial pulmonary venous anomalies, coronaryanomalies, subtle valve abnormalities nor predict the persistence ofstructures of circulation such as a PDA or PFO. The results of today's studywere discussed with the patient. Please see office note regarding the detailsof this consultation. Position Single intrauterine . Cardiac Position Levocardia. Cardiac Segments {S,D,S}. Veins The inferior vena cava appears normal. The superior vena cava appearsnormal. There is no evidence of an LSVC. Color and spectral Doppler flow patternsof at least one right and one left pulmonary vein appear normal. Atria There is no evidence of right atrial enlargement. There is no evidence ofleft atrial dilatation. Mitral Valve The mitral valve appears normal. There is a normal biphasic inflow patternacross the valve. There is no evidence of mitral regurgitation by color andspectral Doppler. The mitral diameter at the annulus measures 0.59 cm (Z-score:-0.29). Tricuspid Valve The tricuspid valve appears normal. There is a normal biphasic inflowpattern across the valve. There is no evidence of tricuspid insufficiency. Thetricuspid diameter at the annulus measures 0.65 cm (Z-score: 0.28). Left Ventricle The left ventricular cavity size appears normal. The left ventricularsystolic function is qualitatively within normal limits. There is no evidence ofleft ventricular hypertrophy. There are no obvious segmental wall motionabnormalities. Right Ventricle The right ventricle is not dilated. There is no evidence of rightventricular hypertrophy. The right ventricular systolic function is qualitativelywithin normal limits. Interventricular/Interatrial Septum There is a moderate sized foramen ovale with right to left shunting bycolor Doppler. There is no evidence of a ventricular septal defect. Aortic Valve The aortic valve appears normal. There is no evidence of valvular aorticstenosis. There is no evidence of aortic insufficiency by color or spectral Doppler.The aortic diameter at the annulus is 0.4 cm (Z-score: -0.26). Pulmonic Valve The pulmonary valve appears normal. There is no evidence of valvularpulmonary stenosis. The pulmonary annulus measures 0.47 cm (Z-score: -0.56). Great Vessels The ascending aorta does not appear dilated. The descending thoracic aortadoes not appear dilated. There is no evidence of coarctation of the aorta. Themain pulmonary artery appears normal. The aortic isthmus measures 0.32 cm(Z-score: - 0.05). Circulation Normal Doppler flow pattern in the umbilical artery. The umbilicus has 2umbilical arteries. There is a normal flow pattern in the umbilical vein. There is anormal flow pattern in the ductus venosus. There is normal intrauterine right toleft flow across the ductus arteriosus. The heart rate is 155 bpm. TheAV interval is 112 msec. The rhythm is regular. Pericardium and Pleura No pericardial effusion. Electronically signed by: Kristina Schmidt MD on04/26/2022 Reading Physician:11:16 AM Romana Torres MD ECHO ORDERABLES documented in this encounter Visit Diagnoses Diagnosis Abnormal ultrasound Abnormal findings on screening documented in this encounter Care Teams Solids Control Technician Relationship Specialty Start Date End Date Kenia Lawrence, HOURLY CAREGIVER [address] [place] [address] PCP - General Family Medicine 10/10/21 05/20/22 documented as of this encounter
--- OUTSIDE RECORDS SUMMARY | 2024-09-20 11:07 | XMS_ITS | Encounter Summary ---
Author Organization [facility] Address [facility] [place] [address] Care Team Providers Care Guest Specialist Name Role Phone Kenia Lawrence ADRIAN Primary Care Provider +1- [phone] Encounter Details Date Type Department Care Team (Late st Contact Info) Description 02/01/2022 Orders Only Cardiology at [address] [address] Social History Tobacco Use Types [...] AM EST Routine Obstetrics [place] [address] Emili Cabrera MD [facility] MATERNAL [place] [address] 09/26/2024 6:00 PM EST Appointment [facility] [place] [address] 10/16/2024 [facility] [place] [address] Dudley Aguilar MD [facility] DR OBSTETRICS [place] [address] 11/08/2024 10:00 AM EST Hospital Encounter Non-[place]vasive [place] [address] Arrived documented as of this encounter Procedures Procedure Name Priority Date/Time Associated Diagnosis Comments CARDIAC DEVICE CHECK - REMOTE PATIENT INITIATED Routine 02/01/2022 11:40 AM EDT documented in this encounter Results * Cardiac device check - Remote Patient Initiated (02/01/2022 11:40 AM EDT) Pathologist [facility] Implantable Pulse Generator Type Defibrillator [employer] Implantable Pulse Generator Model A219 [employer] Implantable Pulse Generator Serial Number [id number] [employer] Implantable Pulse Generator Vice President Investor Relations [employer] Implantable Pulse Generator Implant Date [id number] [employer] Date Time Interrogation Session [employer] Type Interrogation Session Remote Patient Initiated IDCO Clinic Name [facility] IDCO Battery Date Time of [...] Model 3501 [employer] Implantable Lead Serial Number [id number] [employer] Implantable Lead Vice President Investor Relations [place] [employer] Implantable Lead Location Other [employer] Implantable Lead Location Detail 1 Subcutaneous [employer] Anatomical Region Laterality Modality Other 02/01/2022 11:4 0 AM EDT Physician Cardiology IMPLANTABLE CARD IAC DEVICE documented in this encounter Visit Diagnoses Not on filedocumented in this encounter Care Teams Guest Specialist Relationship Specialty Start Date End Date Kenia Lawrence APRN [address] [place] [address] PCP - General Family Medicine 10/10/21 05/20/22 documented as of this encounter
--- OUTSIDE RECORDS SUMMARY | 2024-09-20 11:07 | XMS_ITS | Encounter Summary ---
Author Organization [facility] Address [facility] [place] [address] Care Team Providers Care Orthotics Prosthetics Technician Name Role Phone Kenia Lawrence COMPLAINT CLERK Primary Care Provider +1- [phone] Encounter Details Date Type Department Care Team (Late st Contact Info) Description 01/30/2022 Notes Only Cardiology at [address] [address] Ej Zurita MD [facility] [place] [address] Social History Tobacco Use Types Packs/Day Years [...] Progress Notes * Ej Zurita MD - 01/30/2022 3:39 PM EDT Called back after her call to my nursing team yesterday. She continues to express confusion about the recommendations for/against . No continuous pickling line pickler. VM left regarding reason for check in and re-iterating that this is her choice and there is no lamb to make a decision. I did provide written documentation of my opinion on thispregnancy to her to take home at last visit (See patient instructions from that time) which I referenced but did not repeat verbatim over voicemail. In talking to the OB team and reviewing documentation, the conversations have been very clear and consistent. I did provide written documentation of my opinion on this to her to take home at last visit. See patient instructions from that time. Interim had CTA with no obstructive CAD. Her chest pain is likely spasm vs. MSK and I will evaluateher symptom status on amlodipine and imdur in clinic. I am reassured by this test that her risk of a cardiac event may be lower than estimated for all-comers with VT/VF but continued smoking is a risk for spasm and overall there is no literature available to formally quantify her risk of a cardiac event including . Plan: -Re-iterate results of recent cardiac testing in clinic -Evaluate symptom status in clinic -Recommend smoking cessation in clinic -Discuss (again) what is known and not known about the risk of continued . This is a personal decision. She DOES NOT have an absolute contraindication to . documented in this encounter Plan of Treatment Upcoming Encounters Date Type Department Care Team (Late st Contact Info) Description 09/21/2024 8:15 AM EST Routine Obstetrics [place] [address] Emili Cabrera MD [facility] DR MATERNAL [place] [address] 09/26/2024 6:00 PM EST Appointment [facility] [place] [address] 10/16/2024 Hospital [place] [address] Dudley Aguilar MD [facility] DR OBSTETRICS [place] [address] 11/08/2024 10:00 AM EST Hospital Encounter Non-Invasive [place] [address] Arrived documented as of this encounter Visit Diagnoses Not on filedocumented in this encounter Care Teams Orthotics Prosthetics Technician Relationship Specialty Start Date End Date Kenia Lawrence, COMPLAINT CLERK [address] [place] [address] PCP - General Family Medicine 10/10/21 05/20/22 documented as of this encounter
--- OUTSIDE RECORDS SUMMARY | 2024-09-20 11:07 | XMS_ITS | Encounter Summary ---
[facility] Organization [facility] Address [facility] [place] [address] Care Team Providers Care Edging Catcher Name Role Phone Melinda, Kenia Marilin CAMPBELL Primary Care Provider [phone]- [phone] Reason for Referral * Physical Therapy (Routine) - Closed Specialty Diagnoses / Procedures Referred By Contac t Referred To Contact Physical Therapy Diagnoses Low back pain, non-specific Pelvic pain syndrome Yudi Oliveira MD [facility] [place] [address] [facility] [address] [place] [address] Referral ID Status Reason Start Date Expiration Date V isits Requested Visits Authorized [id number] Closed Evaluate and Treat 03/14/2022 03/14/2023 12 12 Encounter Details Date Type Department Care Team (Late st Contact Info) Description 03/14/2022 1:15 PM EDT Routine Obstetrics [place] [address] Yudi Oliveira MD [facility] [place] [address] GA: 17w0d Social History Tobacco Use Types Packs/Day Years [...] Sign Reading Time Taken Comments Blood Pressure 118/74 03/14/2022 1:17 PM EDT Pulse - - Temperature - - Respiratory Rate - - Oxygen Saturation - - Inhaled Oxygen Concentration - - Weight 75.9 kg (167 lb 6.4 oz) 03/14/2022 1:17 P M EDT Height - - Body Mass Index 28.72 02/13/2022 11:00 AM EDT documented in this encounter Progress Notes * Yudi Oliveira MD - 03/14/2022 1:15 PM EDT 18w0d LMP 11/08/2021 Patient Active Problem List Diagnosis Code ??? Anxiety F41.9 ??? Depression F32.A ??? Asthma J45.909 ??? [...] ??? Recurrent major depressive episodes, moderate F33.1 BP 118/74 Wt 75.9 kg (167 lb 6.4 oz) LMP 11/08/2021 BMI 28.72 kg/m?? Physical Exam General: alert, well appearing, in no apparent distress, oriented to person, place and time, anxious HEENT: normocephalic, atraumatic Abdomen: Soft, nontender Extremities: no edema Neurologic:alert, oriented, normal speech, no focal findings or movement disorder noted Psychiatric: Affect is Flat. Pelvic: cervix long, firm, posterior. No development of lower uterine segment A/P: No evidence of cervical insufficiency or labor. Reassurance given. Feels that biweeklyappointments would be helpful with her overwhelming anxiety. Referral to physical therapy for back/pelvic pain. Yudi OLIVEIRA MD documented in this encounter Plan of Treatment Upcoming Encounters Date Type Department Care Team (Late st Contact Info) Description 09/21/2024 8:15 AM EST Routine Obstetrics [place] [address] Emili Cabrera MD [facility]ER[facility] [place] [address] 09/26/2024 6:00 PM EST [facility] [place] [phone] 10/16/2024 Hospital [place] [phone] Dudley Aguilar MD [facility] OBSTETRICS [place] [address] 11/08/2024 10:00 AM EST Hospital Encounter Non-[place]vasive [place] [phone] Arrived Scheduled Referrals Name Type Priority Associated Diagnoses Orde r Schedule Referral to Physical Therapy Outpatient Referral Routine Low back pain, non-specific Pelvic pain syndrome Ordered: 03/14/2022 documented as of this encounter Visit Diagnoses Diagnosis Low back pain, non-specific Pelvic pain syndrome Pelvic congestion syndrome documented in this encounter Care Teams Edging Catcher Relationship Specialty Start Date End Date Kenia Lawrence APRN [address] [place], [place] [id number] PCP - General Family Medicine 10/10/21 05/20/22 documented as of this encounter
--- OUTSIDE RECORDS SUMMARY | 2024-09-20 11:07 | XMS_ITS | Encounter Summary ---
Author Organization [facility] [place] [address] Care Team Providers Care Gis Manager Name Role Phone MelindaKenia ford Marilin CAMPBELL Primary Care Provider [phone] Reason for Referral * Diagnostic Test (Routine) - Closed Specialty Diagnoses / Procedures Referred By Nellie t Referred To Contact Cardiology Diagnoses HFrEF (heart failure with reduced ejection fraction) Angina pectoris with documented spasm Procedures Echocardiogram Transthoracic Ej Anton MD [facility] [place] [address] [facility] [place] [address] Referral ID Status Reason Start Date Expiration Date V isits Requested Visits Authorized [id number] Closed Specialty Service Requested 02/13/2022 02/13/2023 1 1 Encounter Details Date Type Department Care Team (Late st Contact Info) Description 02/13/2022 11:00 AM EDT Office Visit Cardiology at [address] [address] Ej Anton MD [facility] [place] [address] HFrEF (heart failure with reduced ejection fraction); Angina pectoris with documented spasm Social History Tobacco Use Types Packs/Day Years [...] Time Taken Comments Blood Pressure 124/84 02/13/2022 11:00 AM EDT Pulse 92 02/13/2022 11:00 AM EDT Temperature - - Respiratory Rate - - Oxygen Saturation 100% 02/13/2022 11:00 AM EDT Inhaled Oxygen Concentration - - Weight 74.9 kg (165 lb 3.2 oz) 02/13/2022 11:00 AM EDT Height 162.6 cm (5' 4.02) 02/13/2022 11:00 AM E DT Body Mass Index 28.34 02/13/2022 11:00 AM EDT documented in this encounter Patient Instructions * Patient Instructions* Ej Anton MD - 02/13/2022 11:48 AM EDT As for your heart health: Your heart pumping function is normal. Your heart valves are normal. Your heart arteries have a small amount of plaque but they are NOT blocked Your rhythm has been normal Your blood pressure is normal Your heart rate in normal Your physical exam is normal The big concern is that your arteries are sensitive and can spasm. This has not happened since October but it is hard to predict if/when it will happen again. I recommend we try the isosorbide (which is a long acting nitrate like the pill you put under your tongue) for chest pain. I also recommend we try nicotine patches to get off smoking and that you address your mood with your mental health provider. I am worried about your depression and anxiety interfering with your ability to take care of yourself right now. For mood- I would STAY OFF GOOGLE searching and GET EXERCISE. 30 minutes/5 days a week. Typically if early delivery is planned for your heart, this is pursued after 37 weeks so that the baby is not . I will discuss delivery planning with your OB team. Next visit you will see Dr. Brasher to get a second opinion about your cardiac status as desired. You will have an echocardiogram that day to look at your heart muscle documented in this encounter Progress Notes * Ej Anton MD - 02/13/2022 11:00 AM EDT Images from the original note were not included. CARDIO-OBSTETRICS OUTPATIENT PATIENT NOTE PRIMARY CARE PROVIDER: Kenia Lawrence APRN Chief Complaint: Jose Juan Lundy is a 36 y.o. female here for the evaluation of after recent cardiac arrest secondary to vasospasm. HPI: PROBLEM LIST: #Cardiac arrest secondary to vasospasm #Hypertension #Tobacco Use #Anxiety/Depression-benzodiazepines #YOON on CPAP- on 1 year; sleep study done for snoring 14 weeks . History: The patient was hospitalized . She had a witnessed VF cardiac arrest with bystanderCPR ( her amanda Root) and ROSC after extensive resuscitation. Targeted temperature management waspursued. Troponin-T was trended, stormy from 0.02 on presentation to 0.24. Around 3pm on day of admission patient again had witnessed cardiac arrest. Went into junctional rhythm with ST elevations on telemetry. Rhythm progressed to pulseless Vtach and then Vfib. She was shocked x 3, given 300 mg amiobolus and started on an amio gtt. Post [...] coronary vasospasm. Needed IABP, nicardipine, amiodarone, and lidocaine. The RCA was not injected due to lack of plaque and profound vasospasm on the left sided injections. Summary: Cardiac arrest secondary to vasospasm on CCB/nitrates PRN. There did not appear to have been myocardial damage nor cardiomyopathy after her arrest. LVEF 68% without RWMA. She has a sub-Q ICDwhich has not fired. And was counseled extensively to quit smoking. Last visit 01/01/2022: She came with her amanda Root and daughter Cindi. +occasional midsternal chest pain radiating up to her bilateral neck and over into her shoulders. SLN responsive, using 3-4 times weekly at this point. We reviewed her hospitalization and the etiology of vasospasm. We reviewed triggers and alleviating factors. We reviewed her medications and most importantly we reviewed in great detail her risk of mortality, ICD shocks, ventricular arrhythmias, hospitalization for chest pain, heart failure, and other adverse cardiovascular events.Please see my detailed assessment in patient instructions from 12/2021 for estimates of cardiac risk with acknowledgement of uncertainty. Interim Phone visit: Reporting pain on the left side rib going toward the belly button. Appetite poor. No vomiting. Very nauseous. No diarrhea. +Chest pain: Has used the SLN 4 times this week during the day. Pain is left sided, near incision. No associated activity. Not positional pain. + sob. +clammy. +increased nausea. + left arm pain. Still having occasional chest burning (twice since October). Hasn't started the isosorbide because she was nervous. She read the pamphlet and panicked. +Palpitations. Coronary CTA shows patent RCA. Nonobstructive calcific plaque <25% narrowing in RCA and LAD. CAC score 11. ICD interrogation no events last week. Today: Hasn't tried imdur. Read side effects and got nervous again. She appears quit withdrawn today and is avoiding eye contact for much of the visit. Dk shares that he has been worried about her appetite, fatigue, anxiety, and depression. He says she has been holing up in her room. He is getting her silvia faby and gatorade but she hasn't been eating much. She has new midsternal pinching chest pain that is relieved with SLN. Bps 120s/80 at home. When I review her current cardiac testing and status, I am reassured with how she is doing. Her physical symptoms of fatigue, low energy, and anxiety seem out of proportion to or her cardiac disease. She is taking klonipin 3 times daily but no other antidepressant/anxiolytic. Seeing mental health provider Nery in [facility] [place] 02/26. Jose Juan is appropriately concerned about continued . She is reading online and discussing with family members who are all concerned about her health and the duration of this . She again states that there is confusion between the cardioOB and OB teams regarding her risk of continued . I reassured her that I speak with her OB team after every visit and that this visit is no different. She is worried about being able to make it for the full pregnancyand inquires about delivering early. Her family members are particularly interested in this. I spoke at length regarding medical indications for pre-term delivery and how the CardioOB team makes delivery plans with every patient. I explained the risk of pre-term for the infant. is a serious obstetric problem. It is the most common cause of infant and is the leading cause of long-term disability related to the nervous system in children. Despite this explanation, thisquestion came up at several other points in this visit. I am overall concerned about Jose Juan's ability to take in information after her cardiac arrest and with the overlying anxiety/depression she seems to be exhibiting. She inquired about a second opinion regarding this and particularly d elivery planning. She states that she has been happy with my care overall but that she has difficulty trusting providers after her cardiac arrest because she has been told her symptoms were anxiety for so long prior to it. I have offered her a referral to my partner Dr. Brasher for a second opinion and I would happily refer her a colleague in [place] if so desired. Symptoms: + dizziness- not today + low energy, fatigue +midsternal chest burning that radiates to the shoulders and around to the back. Burning is associated with coughing/bringing phlegm, sweating, and shortness of breath. +midsternal pinching +left flank pain around the device site which appears c/d/i on exam OB history: Jose Juan has 3 children but only lives with one of them intermittently. ??Her first child lives withHeather's mother and a second child lives with her other sister. ??Jose Juan's mother states that Jose Juan has been struggling with her bipolar for a long time and has not been able to live with all 3 children due to her bipolar, anxiety and depression issues. ??To mother's knowledge, Jose Juan has not been engaged in any recreational drugs. ??Jose Juan has a history of 1 miscarriage. ?? FH: There is no known cardiac history in the patient's first-degree relatives, however, Shannon (Jose Juan's mother) has a female cousin who at age 18 due to an underlying cardiac issue that was known since . ??Shannon denies any history of sudden cardiac in the family. ?? Social history: No OTC, supplements Tobacco: smoking 1ppd; smoked since age 14; quit 2 years ago for 1 month; cut- back during pregnancyto 1/2ppd MEDICATIONS: Current Outpatient Medications Medication Sig Dispense Refill ??? clonazePAM (KlonoPIN) 1 mg Tablet Take 1 mg by mouth 2 times daily. ??? amLODIPine (Norvasc) 10 mg Tablet Take [...] 0 ??? fluticasone propionate (Flonase) 50 mcg/actuation [place], Suspension 1 spray by Each Nare route [...] for Chest pain. 30 tablet 0 ??? clonazePAM (KlonoPIN) 0.5 mg Tablet Take 2 tablets by mouth 2 times daily. (Patient taking differently: Take 0.5 mg by mouth Daily at Noon.) 60 tablet 0 ??? vitamin C 500 mg [...] bicarb/alginc (GAVISCON ORAL) Take by mouth. ??? pantoprazole EC (Protonix) 40 mg Tablet, Delayed Release (E.C.) Take 40 mg by mouth daily. ??? sucralfate (Carafate) 1 gram Tablet TAKE 1 TABLET BY MOUTH TWICE DAILY ON AN EMPTY STOMACH ??? diphenhydrAMINE/aluminum-magnesium hydroxide with simethicone/lidocaine (BMX) (6.67 mg-0.83 mg-13.33 mg-1.33 mg/mL) oral liquid Take by mouth. ??? prazosin (MINIPRESS) 1 mg Capsule Take 1 mg by mouth 3 times daily. ??? albuterol 90 mcg/actuation HFA Aerosol Inhaler Inhale 2 puffs into the lungs every 4 hours as needed for Wheezing. Use with spacer ??? calcium carbonate (TUMS) 200 mg calcium (500 mg) Tablet, Chewable Take 1 tablet by mouth as needed. No current facility-administered medications for this visit. ROS: 11 point ros either negative or per HPI Objective: No data found. Gen: pleasant female in NAD Eyes: Non-injected, no scleral icterus HEENT: atraumatic, MMM Cor: rrr, s1/s2 of nl character and amplitude, no m/r/g. Estimated RAP 5. Carotids without bruit. Pulm: CTAB. Normal diaphragmatic movement without use of accessory muscles, subcutaneous ICD was inspected and is clean dry and intact. There is no warmth or erythema. There is no drainage from the site. Ab: soft, nt, no hernias Ext: no c/c/e. Dp/pt ++ Neuro: without focal deficit Skin: WWP, no rashes nor ulcers Psych: Well kempt, normal affect and insight TESTING: I have reviewed the pertinent outside records, laboratory data, and imaging studies. I personally reviewed the images and developed my own interpretation of the echocardiogram, stress tests,and CT scan if available, as well as the chest xray, and ECG. Pertinent results for this evaluationinclude: Last wbc, hgb, hct plt No results for input(s): WBC, HGB, HCT in the last 72 hours. Invalid input(s): PLT Last 3 Lytes Recent Labs 01/16/22 1547 11/16/21 1232 11/14/21 0428 NA 137 138 137 K 3.9 4.3 4.3 CL 100 103 106 CO2 23 24 21* BUN 10 16 27* CREATININE 0.81 0.91 0.92 Last 3 ProBNP, Trop, CK No results for input(s): CK, TROPONINT, PROBNP in the last 168 hours. Last 3 TFT Recent Labs 11/16/21 1232 TSH 2.96 Last 3 Lipids Recent Labs 11/04/21 0735 TRIG 130 Last 3 HgbA1C No results for input(s): HA1C in the last 7068 hours. The ASCVD Risk score (Jolanta DC Jr., et al., 2013) failed to calculate for the following reasons: The 2013 ASCVD risk score is only valid for ages 40 to 79 12 lead EKG was conducted in clinic and reviewed independently by me. This showed: Risk Assessment: CarPreg II Risk Score: Definitions: High-risk valve lesions/left ventricular outflow tract (LVOT) obstruction= Aortic valve area <1.5 cm2, subaortic gradient >30 mm Hg, mitral valve area <2 cm, or moderate to severe mitral regurgitation Pulmonary hypertension= RVSP >50 mm Hg in the absence of right ventricular outflow obstruction estimated by TTE. High Risk Aortopathy = Marfan syndrome, bicuspid aortopathy with aortic dimension >45 mm, Loeys-Adriane syndrome, vascular Marah-Danlos syndrome, or prior aortic dissection or pseudoaneurysm. Coronary artery disease = Angiographically proven coronary obstruction or past myocardial infarction. No prior cardiac intervention = No cardiac repair of congenital lesions; no prior valvular replacements or repairs; or percutaneous or operative treatment of arrhythmias. Late assessment = First visit after 20 weeks gestation. Outcomes: Cardiac Complications were defined as: maternal cardiac ; cardiac arrest; sustained arrhythmiarequiring treatment; left-sided heart failure (HF) defined as pulmonary edema; right-sided HF; stroke or transient ischemic attack; cardiac thromboembolism; myocardial infarction; and vascular dissection. Secondary outcomes were classified as a decline in NYHA functional class by >=2 classes during the antepartum period or the need for urgent invasive treatment procedure/surgery during and up to the sixth week. Importantly, the most common maternal outcomes predicted were related to arrhythmias and heart failure. LHC: Left Main No significant obstructive coronary disease but patient with severe spasm after initial contrast injection. Left Anterior Descending No obstructive disease but significant coronary spasm after initial contrast injection. Left Circumflex No obstructive disease but significant coronary spasm after initial contrast injection. Right Coronary Artery This vessel was not injected. TTE: 1. The left ventricular chamber size is normal. Left ventricular wall thickness is normal. There is normal left ventricular systolic and diastolic function. The quantitative left ventricular ejection fraction by biplane Redman's method is 68%. There are no left ventricular segmental wall motion abnormalities. 2. Right ventricular chamber size and systolic function are within normal limits. The estimated pulmonary artery systolic pressure is 17 mmHg plus right atrial pressure. 3. The valves appear structurally and functionally normal. 4. There is no pericardial effusion. 5. Compared to a prior study dated 07/04/16, there is no significant change. Assessment and Plan: Impression: 36 year old female with recent VF arrest in the setting of severe coronary vasospasm. No obstructive CAD by LHC and subsequent CTA. No recurrent ventricular arrhythmias on device interrogation and no evidence of myopathy by TTE. LVEF normal with no regional wall motion abnormalities. After Jose Juan's first visit I have been in contact with Romana Torres from [facility] and have also reviewedher case with my partner Kaylen Sameera as well as a colleague who is a CardioObstetrics attending from [facility]. Jose Juan's situation is unique and there is no literature or guidelines available to determine exactly what to do in this scenario. 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 In reviewing the cath images with our colleague in [place], the possibility of type II scad was raised, however, if scad were present we would expect to have regional wall motion abnormality on echoca rdiogram. Cardiac MRI would have been helpful to evaluate for infarct pattern of ischemia or edema but would not differentiate the cause of ischemia (scad or spasm). There is an apparent history of cocaine and heroin use, however, tox screen on admission was positive only for benzodiazepines. Coronary CTA was a useful study to exclude RCA disease. Risk assessment: mWHO III for Ventricular arrhythmia-maternal cardiac event rate (largely CHF or arrhythmia) of 19-27% and significantly increased mortality. Carpreg 3- 15% incidence of cardiac events expected Jose Juan does not have an absolute contraindication to despite the fact that her pregnancyis high risk. The most important thing she can do is stop smoking as this is her #1 risk factor forrecurrent vasospasm and VT/VF. Please see my detailed assessment in patient instructions from 12/2021 which I provided for her and her family. #Vasospasm: -Smoking cessation strongly recommended. Anxiety/depression interfering with self-care, recommendedmental health follow up. -Repeat TTE for regional wall motion and function at next visit -Renal artery ultrasound to evaluate for FMD in the future-looking to exclude type II SCAD by finding pathology that is more typically associated with SCAD than vasospasm (consider CTA renal arterieswhen no longer ) -Continue amlodipine 10mg daily -Add isosorbide mononitrate 15mg daily -Continue SLN prn chest discomfort. Esophageal spasm remains in the differential and could be investigated in the future. Will consider GI referral pending clinical course. -? Will ask OB re:Restarting aspirin in the second trimester for pre-eclampsia prophylaxis. #VF cardiac arrest: -Sub Q ICD was implanted by Dr Yap on 11/12/2021 for secondary prevention. -Continue EP device interrogations. DFT testing post . -Cardioversion is the preferred choice if needed when patient is . ??ICD shocks (appropriate or inappropriate) are well tolerated from the maternal stand point, psychologically may be not. -If there is a significant increase in ventricular arrhythmias prior to viability, termination of for maternal health should be rediscussed. #Delivery planning: - is a serious obstetric problem. It is the most common cause of and is the leading cause of long-term disability related to the nervous system in children. Delivery prior to 37 weeks is considered , therefore, this would not be proactively planned for, but rather determined based on the medical necessity in the moment. -Will continue to be discussed as progresses -When she delivers, we need to have a device net developer programmer ready in anticipation of (cauterization may interfere with ICD sensing). Cardio-obstetrics follow up: Bimonthly or monthly during Return in about 1 month (around 03/15/2022) for In Person with Kaylen Brasher for second opinion re: cardiac risk; ekg on the day. Ej Anton MD 02/13/2022 7:27 AM Thank you for the opportunity to participate in this patient's cardiovascular care. All questions were answered and I look forward to the next visit. I spent at least 60 minutes of time on this patient encounter on the date of service performing activities related to: ?preparing to see the patient (eg, review of tests) ?obtaining and/or reviewing separately obtained history ?performing a medically appropriate examination and/or evaluation ?counseling and educating the patient/family/caregiver ?ordering medications, tests, or procedures ?referring and communicating with other health critical care clinical nurse specialist (when not separately reported) ?documenting clinical information in the electronic or other health record ?independently interpreting results (not separately reported) and communicating results to the patient/family/caregiver ?care coordination (not separately reported) Called Brenda Melendrez from [facility] in [facility] and left regarding my mental health concerns. [address] [place], [place] [phone] M-F 7:30 AM - 5:30 PM documented in this encounter Plan of Treatment Upcoming Encounters Date Type Department Care Team (Late st Contact Info) Description 09/21/2024 8:15 AM EST Routine Obstetrics [place] [address] Emili Cabrera MD [facility] [place] [address] 09/26/2024 6:00 PM EST Appointment [facility] [place] [address] 10/16/2024 Hospital Encounter [place] [id number] Dudley Aguilar MD [facility] OBSTETRICS AND GYNECOLOGY [place] [id number] 11/08/2024 10:00 AM EST Hospital Encounter Non-[place] [address] Arrived documented as of this encounter Results * ECHO COMPLETE (03/14/2022 12:20 PM EDT) Anatomical Region Laterality Modality Other 03/14/2022 10:5 1 AM EDT Narrative 03/14/2022 12:34 PM EDT [facility] ?[address] ? [place] [address] ?Voice: ?Fax: ? Echocardiogram Report Name: JOSE JUAN LUNDY ? Study Date: 03/14/2022 10:51 AMBP: 132/75 mmHg ? Patient Location: 4A [facility] : 1985 ? Height: 64 in ? Account: [id number] Age: 36 yrs ? Weight: 162 lb Gender: Female ?BSA: 1.8 m2 Ordering Physician: EJ ANTON Referring Physician: EJ ANTON Performed By: Justice Smith RDCS Reason For Study: HFrEF Exam Location: [facility]. Interpretation Summary Left ventricular systolic and diastolic function are [...] on 11/04/2021, there is no significant change. Procedure Complete-31161. Left ventricular strain - 0399T. Satisfactory quality. There is normal sinus rhythm. Left Ventricle Left ventricle is of normal size. There is no ventricular septal defect. Wall thickness is normal. Left ventricular systolic function is normal. The left ventricular ejection fraction is 69% by Redman's biplane. Global longitudinal strain is measured at -18.3 %. (Epiq). There are no segmental wall motion abnormalities. Right Ventricle The right ventricle is of normal size. Right ventricular systolic function is normal. Left Atrium The left atrium is normal. There is no evidence for a patent foramen ovale. Right Atrium The right atrium is normal. Aortic Valve The aortic valve is structurally normal. The aortic valve is tricuspid. There is no aortic stenosis. There is no aortic regurgitation. Mitral Valve The mitral valve is structurally and functionally normal. There is trace mitral regurgitation. Tricuspid Valve The tricuspid valve is structurally normal. There is trace tricuspid regurgitation. Pulmonic Valve The pulmonic valve appears to be structurally and functionally normal. There is trace pulmonic valve regurgitation. Great Arteries The aortic root is of normal size. No abnormalities are identified. Ascending aorta is normal in size. Venous Inferior vena cava is normal in size. Inferior vena cava collapse greater than 50% with respiration. Pericardium/Pleural The pericardium appears normal. There is no pericardial effusion. Hemodynamics The estimated right atrial pressure is 3mmHg. Pulmonary artery hypertension could not be assessed due to inadequate tricuspid regurgitation jet. Left ventricular diastolic function is normal. Left ventricular filling pressure is normal. Ejection Fraction ?2D Measurements ? Volumes LV Biplane EF: 69.1 % ? IVSd: 0.76 cm ?LA Volume Index: ?LVIDd: 4.8 cm ?LVIDs: 3.0 cm ?31.3 ml/m2 ?LVPWd: 0.99 cm ? RA A4Cs_phl: 16.6 cm2 ? EDV Biplane: 94.6 ml ?LV mass(C)d: 141.1 grams ? EDV Biplane Index: 52.9 ?LV mass(C)dI: 78.9 grams/m2 ?ESV Biplane: 29.2 ml ?Ao root diam: 3.0 cm ? ESV Biplane Index: 16.3 ?Ao root diam index: 1.7 ?SV(LVOT): 62.8 ml ?asc Aorta Diam: 3.0 cm ?LVOT diam: 1.7 cm ?LV Stroke Volume: 59.0 ml ? SI(LVOT): 35.1 ml/m2 Doppler ?3D/Strain/TomTec MV E max juan: 86.9 cm/sec LV GLS Endo Peak Avg (): - MV A max juan: 75.0 cm/sec 18.3 % MV E/A: 1.2 MV dec time: 0.23 sec Lat Peak E' Juan: 15.3 cm/sec E/ e' (lat): 5.7 Med Peak E' Juan: 11.9 cm/sec E/e' (med): 7.3 E/e' Average: 6.5 I ?WMSI = 1.00 ? % Normal = 100 ?Segments ??Size X - Cannot ?? 1 - Normal ?? 2 - ? 3 - Akinetic 4 - ?1-2 ? small Interpret ? Hypokinetic ?Dyskinetic ?? 3-5 ? moderate 5 - ? 6-14 ?large Aneurysmal ?15-16 ?? diffuse Procedure Note Graham Moreira MD - 03/14/2022 [facility] [address] [place] [address] Voice: Fax: Echocardiogram Report Name: KAMRONJOSE JUAN MEJIA Study Date: 210:51 AMBP: 132/75 mmHg Patient Location: [id number] : 1985 Height: 64 in Account: [id number] Age: 36 yrs Weight: 162 lb Gender: Female BSA: 1.8 m2 Ordering Physician: EJ ANTON Referring Physician: EJ ANTON Performed By: Justice Smith RDCS Reason For Study: HFrEF Exam Location: [facility]. Interpretation Summary Left ventricular systolic and diastolic function are normal. The leftventricular ejection fraction is 69% by Redman's biplane. There are no segmental wallmotion abnormalities. The right ventricle is of normal size. Right ventricular systolic functionis normal. Unable to estimate RVSP. There is no valve disease. See report for additional findings. Compared with the previous echo performed on 11/04/2021, there is nosignificant change. Procedure Complete-70360. Left ventricular strain - 0399T. Satisfactory quality.There is normal sinus rhythm. Left Ventricle Left ventricle is of normal size. There is no ventricular septal defect.Wall thickness is normal. Left ventricular systolic function is normal. Theleft ventricular ejection fraction is 69% by Redman's biplane. Globallongitudinal strain is measured at -18.3 %. (Epiq). There are no segmental wallmotion abnormalities. Right Ventricle The right ventricle is of normal size. Right ventricular systolic functionis normal. Left Atrium The left atrium is normal. There is no evidence for a patent foramenovale. Right Atrium The right atrium is normal. Aortic Valve The aortic valve is structurally normal. The aortic valve is tricuspid.There is no aortic stenosis. There is no aortic regurgitation. Mitral Valve The mitral valve is structurally and functionally normal. There is tracemitral regurgitation. Tricuspid Valve The tricuspid valve is structurally normal. There is trace tricuspid regurgitation. Pulmonic Valve The pulmonic valve appears to be structurally and functionally normal.There is trace pulmonic valve regurgitation. Great Arteries The aortic root is of normal size. No abnormalities are identified.Ascending aorta is normal in size. Venous Inferior vena cava is normal in size. Inferior vena cava collapse greaterthan 50% with respiration. Pericardium/Pleural The pericardium appears normal. There is no pericardial effusion. Hemodynamics The estimated right atrial pressure is 3mmHg. Pulmonary arteryhypertension could not be assessed due to inadequate tricuspid regurgitation jet. Leftventricular diastolic function is normal. Left ventricular filling pressure isnormal. Ejection Fraction 2D Measurements Volumes LV Biplane EF: 69.1 % IVSd: 0.76 cm LA VolumeIndex: LVIDd: 4.8 cm LVIDs: 3.0 cm 31.3 ml/m2 LVPWd: 0.99 cm RA A4Cs_phl: 16.6cm2 EDV Biplane: 94.6ml LV mass(C)d: 141.1 grams EDV BiplaneIndex: 52.9 LV mass(C)dI: 78.9 grams/m2 ESV Biplane: 29.2ml Ao root diam: 3.0 cm ESV BiplaneIndex: 16.3 Ao root diam index: 1.7 SV(LVOT): 62.8ml asc Aorta Diam: 3.0 cm LVOT diam: 1.7 cm LV Stroke Volume:59.0 ml SI(LVOT): 35.1ml/m2 Doppler 3D/Strain/TomTec MV E max juan: 86.9 cm/sec LV GLS Endo Peak Avg (): - MV A max juan: 75.0 cm/sec 18.3 % MV E/A: 1.2 MV dec time: 0.23 sec Lat Peak E' Juan: 15.3 cm/sec E/ e' (lat): 5.7 Med Peak E' Juan: 11.9 cm/sec E/e' (med): 7.3 E/e' Average: 6.5 I WMSI = 1.00 % Normal = 100 SegmentsSize X - Cannot 1 - Normal 2 - 3 - Akinetic 4 - 1-2small Interpret Hypokinetic Dyskinetic 3-5moderate 5 - 6-14large Aneurysmal 15-16diffuse Ej Anton MD ECHO ORDERABLES documented in this encounter Visit Diagnoses Diagnosis HFrEF (heart failure with reduced ejection fraction) Angina pectoris with documented spasm Prinzmetal angina HFrEF (heart failure with reduced ejection fraction) Angina pectoris with documented spasm Prinzmetal angina documented in this encounter Care Teams Gis Manager Relationship Specialty Start Date End Date Kenia Lawrence APRN [address] [place] [address] PCP - General Family Medicine 10/10/21 05/20/22 documented as of this encounter
--- OUTSIDE RECORDS SUMMARY | 2024-09-20 11:07 | XMS_ITS | Encounter Summary ---
Author Organization [facility] [place] [address] Care Team Providers Care Decorating Inspector Name Role Phone MelindaKenia ford ADRIAN Primary Care Provider +1- [phone] Encounter Details Date Type Department Care Team (Late st Contact Info) Description 02/28/2022 Telephone Obstetrics [place] [phone] Alla Weinberg RN Social History Tobacco Use [...] Telephone Encounter - Alla Weinberg RN - 02/28/2022 10:45 AM EDT Returned call to Aniya back to review with her information from my discussion with Dr. Castellanos, who endorses that she should continue to stay off her feet and increase fluid intake. Aniya states that since we spoke her back pain has increased and she is very uncomfortable. She would like an appointment to be seen if at all possible. Ship Washer was able find afternoon appointment in Dr. Torres's schedule, I let Aniya know and she is going to get back to me to confirm whether she can make it at that time. * Telephone Encounter - Alla Weinberg RN - 02/28/2022 10:02 AM EDT TC from Aniya Luque 1985 [place] 16w0d H/O Cardiac arrest with excessive resuscitation Oct 2021 MFM patient States she has been having lower back pain or 06/29 and my stomach kept hardening up on me almostlike I'm having contractions. Onset: States above symptoms started yesterday afternoon. Reports that her abdomen was intermittently throughout the night approximately 2-3 times in an hour. Also feeling pressure in pelvic area when she is up walking around. Last felt around 4am this morning. Took tylenol this morning and since then back pain has improved Noticed fluid leaking since yesterday afternoon, has been wearing pad. The discharge is not constant, just every now and then there is a dribble. Reports fluid as clear, maybe I am peeing a little bit? Not saturating pad. Aniya states she is very nervous that something is wrong with the baby. Feeling little flutters of movement, but seems like less than a couple of days ago. Denies vaginal bleeding Reports only drinking about three 8-oz servings of water daily. While on phone she stands up and states when she does the abdominal tightening a pelvic pressure returns. Cautioned to remain reclining for now and to start hydrating with water. I let her know that I would review with covering [facility] provider and get back to her with a plan. Note routed to covering [facility] provider Kaila Castellanos documented in this encounter Plan of Treatment Upcoming Encounters Date Type Department Care Team (Late st Contact Info) Description 09/21/2024 8:15 AM EST Routine Obstetrics [place] [address] Emili Cabrera MD [facility] [place] [address] 09/26/2024 6:00 PM EST Appointment [facility] [place] [address] 10/16/2024 Hospital [place] [phone] Dudley Aguilar MD [facility] OBSTETRICS [place] [address] 11/08/2024 10:00 AM EST Hospital Encounter Non[place] [address] Arrived documented as of this encounter Visit Diagnoses Not on filedocumented in this encounter Care Teams Decorating Inspector Relationship Specialty Start Date End Date Kenia Lawrence APRN [address] [place] [address] PCP - General Family Medicine 10/10/21 05/20/22 documented as of this encounter
--- OUTSIDE RECORDS SUMMARY | 2024-09-20 11:07 | XMS_ITS | Encounter Summary ---
Author Organization [facility] Address [facility] [place] [address] Care Team Providers Care Calender Wind Up Helper Name Role Phone MelindaKenia ford ADRIAN Primary Care Provider +1- [phone] Encounter Details Date Type Department Care Team (Late st Contact Info) Description 03/27/2022 Orders Only Obstetrics [place] [phone] Romana Torres MD [facility] DR OBSTETRICS [place] [address] Contact with and (suspected) exposure to viral hepatitis (Primary Dx) Social History Tobacco Use Types [...] AM EST Routine Obstetrics [place] [phone] Emili Cabrera MD [facility] [place] [address] 09/26/2024 6:00 PM EST Appointment [facility] [place] [address] 10/16/2024 Hospital [place] [address] Dudley Aguilar MD [facility] OBSTETRICS [place] [address] 11/08/2024 10:00 AM EST Hospital Encounter Non-[place] [phone] Arrived documented as of this encounter Results * Hepatitis C Antibody (04/09/2022 11:46 AM EDT) Hepatitis C Antibody Negative Negative [facility] Blood 04/09/2022 11:4 6 AM EDT 04/09/2022 12:12 PM EDT Narrative Resulting Agency Comment Spec In Lab Romana Torres MD CHEMISTRY ORDERABLES [facility] [place] [address] documented in this encounter Visit Diagnoses Diagnosis Contact with and (suspected) exposure to viral hepatitis- Primary documented in this encounter Care Teams Calender Wind Up Helper Relationship Specialty Start Date End Date Kenia Lawrence, ADRIAN [address] [place] [address] PCP - General Family Medicine 10/10/21 05/20/22 documented as of this encounter
--- OUTSIDE RECORDS SUMMARY | 2024-09-20 11:07 | XMS_ITS | Encounter Summary ---
Author Organization [facility] [place] [address] Care Team Providers Care Medical Review Coordinator Name Role Phone MelindaKenia ford ADRIAN Primary Care Provider +1- [phone] Encounter Details Date Type Department Care Team (Late st Contact Info) Description 03/27/2022 Telephone Obstetrics [place] [phone] Carey Ibarra RN Social History Tobacco Use [...] Telephone Encounter - Carey Ibarra RN - 03/27/2022 8:42 AM EDT Answered incoming call from Aniya Luque, : 1985, GA: 19w6d Primary concern: exposure to hepatitis C virus Aniya reports she was having intercourse with her fiance last night who she reports has hepatitisC. Aniya reports he developed a lot of bleeding from his penis that required ED visit. Aniya reports she was exposed to his blood through her vagina. After the exposure she went to the bathroomand tried to wash up as best as possible. Aniya was seen yesterday and started on Flagyl for abnormal vaginal discharge. Aniya reports she started her flagyl last night and will take as prescribed. Discussed exposure with Dr. Torres who recommends Hepatitis C antibody in 2 weeks. I relayed this recommendation to Aniya and recommended she avoid exposures to blood and mucous membranes including wearing a condom during intercourse. documented in this encounter Plan of Treatment Upcoming Encounters Date Type Department Care Team (Late st Contact Info) Description 09/21/2024 8:15 AM EST Routine Obstetrics [place] [address] Emiil Cabrera MD [facility] [place] [address] 09/26/2024 6:[address] [facility] [place] [phone] 10/16/2024 Hospital [place] [phone] Dudley Aguilar MD [facility] DR OBSTETRICS [place] [address] 11/08/2024 10:00 AM EST Hospital Encounter Non-Invasive [place] [phone] Arrived documented as of this encounter Visit Diagnoses Not on filedocumented in this encounter Care Teams Medical Review Coordinator Relationship Specialty Start Date End Date Kenia Lawrence APRN [address] [place] [address] PCP - General Family Medicine 10/10/21 05/20/22 documented as of this encounter
--- OUTSIDE RECORDS SUMMARY | 2024-09-20 11:07 | XMS_ITS | Encounter Summary ---
Author Organization [facility] [place] [address] Care Team Providers Care Jaw Skinner Name Role Phone Melinda, Kenia Marilin CAMPBELL Primary Care Provider +1- [phone] Reason for Referral * Diagnostic Test (Routine) - Closed Specialty Diagnoses / Procedures Referred By Nellie mckeon Referred To Contact Diagnoses Abnormal ultrasound Procedures Echo Bee Torres MD [facility] DR OBSTET[place]ICS [place] [address] [facility] [place] [address] Referral ID Status Reason Start Date Expiration Date V isits Requested Visits Authorized [id number] Closed Specialty Service Requested 04/09/2022 04/09/2023 1 1 Reason for Visit * Reason Comments Routine Visit Encounter Details Date Type Department Care Team (Late st Contact Info) Description 04/09/2022 11:15 AM EDT Routine Obstetrics [place] [address] Bee Torres MD [facility] [place] [address] GA: 21w5d Social History Tobacco Use Types Packs/Day Years [...] Sign Reading Time Taken Comments Blood Pressure 126/82 04/09/2022 11:15 AM EDT Pulse - - Temperature - - Respiratory Rate - - Oxygen Saturation - - Inhaled Oxygen Concentration - - Weight 76.1 kg (167 lb 12.8 oz) 022 11:15 AM EDT Height - - Body Mass Index 28.8 03/26/2022 10:23 AM EDT documented in this encounter Progress Notes * Bee Torres MD - 04/09/2022 11:15 AM EDT 21 02/23 weeks Had follow up with cardiology on 03/26. Follow up there is planned in 2 months. Still has some dyspnea on exertion and chest pain that resolved with nitroglycerin. Has tachycardia to 130 after flight of stairs She denies bleeding, leaking of fluid, pain or regular contractions. She notes good movement. Patient Vitals for the past 24 hrs: BP 04/09/22 1115 126/82 Lungs clear HR 90 regular Ext no edema US: ductal arch not complete. I recommended a echocardiogram. RTC 2 weeks ERB documented in this encounter Miscellaneous Notes * Addendum Note - Dudley Shoemaker - 04/09/2022 11:15 AM EDTAddended by: DUDLEY SHOEMAKER on: 04/09/2022 11:36 AM Modules accepted: Orders documented in this encounter Plan of Treatment Upcoming Encounters Date Type Department Care Team (Late st Contact Info) Description 09/21/2024 8:15 AM EST Routine Obstetrics [place] [address] Emili Cabrera MD [facility] [address] [place] [address] 09/26/2024 6:00 PM EST Appointment [facility] [place] [phone] 10/16/2024 Hospital [place] [phone] Dudley Aguilar MD [facility] DR OBSTETRICS [place] [address] 11/08/2024 10:00 AM EST Hospital Encounter Non-[place] [address] Arrived documented as of this encounter Procedures Procedure Name Priority Date/Time Associated Diagnosis Comments HC VENIPUNCTURE Routine 04/09/2022 11:46 AM EDT Contact with and (suspected) exposure to viral hepatitis documented in this encounter Results * ECHO COMPLETE (04/26/2022 11:02 AM EDT) Anatomical Region Laterality Modality Cardiac Other 04/26/2022 10:1 9 AM EDT Narrative 04/26/2022 11:16 AM EDT ?Cardiovascular ?Laboratory ? [address] ?[place], [place] ? Phone [phone] ?Fax [phone] Echocardiogram Report Name: ANIYA LUQUE ? Study Date: 04/26/2022 ? Patient Location: : 1985 ? Gender: Female Age: 36 yrs Reason For Study: Abnormal OB ultrasound study Ordering Physician: BEE TORRES Referring Physician: BEE TORRES Performed By: Kaila Ham [facility] Interpretation Summary This is a 24 [...] Schmidt MD - 04/26/2022 Cardiovascular Laboratory [address] [place], [place] Phone Fax Echocardiogram Report Name: ANIYA LUQUE Study Date: 04/26/2022 Patient Location: : 1985 Gender: Female Age: 36 yrs Reason For Study: Abnormal OB ultrasound study Ordering Physician: BEE TORRES Referring Physician: BEE TORRES Performed By: Kaila Ham [facility] Interpretation Summary This is a 24 [...] Kristina Schmidt MD on04/26/2022 Reading Physician:11:16 AM Bee Torres MD ECHO ORDERABLES * Hepatitis C Antibody (04/09/2022 11:46 AM EDT) Hepatitis C Antibody Negative Negative [facility] Blood 04/09/2022 11:4 6 AM EDT 04/09/2022 12:12 PM EDT Narrative Resulting Agency Comment Spec In Lab Bee Torres MD CHEMISTRY ORDERABLES [facility] [place] [address] documented in this encounter Visit Diagnoses Diagnosis Abnormal ultrasound Abnormal findings on screening Contact with and (suspected) exposure to viral hepatitis Abnormal ultrasound Abnormal findings on screening documented in this encounter Care Teams Jaw Skinner Relationship Specialty Start Date End Date Kenia Lawrence APRN [address] [place] [address] PCP - General Family Medicine 10/10/21 05/20/22 documented as of this encounter
--- OUTSIDE RECORDS SUMMARY | 2024-09-20 11:07 | XMS_ITS | Encounter Summary ---
Author Organization [facility] Address [facility] [place] [address] Care Team Providers Care Sandblast Carver Name Role Phone Kenia Lawrence ADRIAN Primary Care Provider +1- [phone] Encounter Details Date Type Department Care Team (Late st Contact Info) Description 02/01/2022 Orders Only Cardiology at [address] [address] Social History Tobacco Use Types [...] AM EST Routine Obstetrics [place] [address] Emili Cabrera MD [facility] [place] [address] 09/26/2024 6:00 PM EST Appointment [facility] [place] [address] 10/16/2024 [facility] [place] [address] Dudley Aguilar MD [facility] DR OBSTET[place] [address] 11/08/2024 10:00 AM EST Hospital Encounter Non-[place]vasive [place] [address] Arrived documented as of this encounter Procedures Procedure Name Priority Date/Time Associated Diagnosis Comments CARDIAC DEVICE CHECK - REMOTE PATIENT INITIATED Routine 02/01/2022 11:42 AM EDT documented in this encounter Results * Cardiac device check - Remote Patient Initiated (02/01/2022 11:42 AM EDT) Pathologist [facility] Implantable Pulse Generator Type Defibrillator [employer] Implantable Pulse Generator Model A219 [employer] Implantable Pulse Generator Serial Number [id number] [employer] Implantable Pulse Generator Mushroom Packer Inotrem [employer] Implantable Pulse Generator Implant Date [id number] IDCO Date Time Interrogation Session IDCO Type Interrogation Session Remote Patient Initiated IDCO Clinic Name [facility] IDCO Battery Date Time of Measurements IDCO [...] Model 3501 [employer] Implantable Lead Serial Number [id number] [employer] Implantable Lead Mushroom Packer [place] [employer] Implantable Lead Location Other [employer] Implantable Lead Location Detail 1 Subcutaneous IDCO Anatomical Region Laterality Modality Other 02/01/2022 11:4 2 AM EDT Physician Cardiology IMPLANTABLE CARD IAC DEVICE documented in this encounter Visit Diagnoses Not on filedocumented in this encounter Care Teams Sandblast Carver Relationship Specialty Start Date End Date Kenia Lawrence APRN [address] [place] [address] PCP - General Family Medicine 10/10/21 05/20/22 documented as of this encounter
--- OUTSIDE RECORDS SUMMARY | 2024-09-20 11:07 | XMS_ITS | Encounter Summary ---
Author Organization [facility] [place] [address] Care Team Providers Care Inspector Heating And Refrigeration Name Role Phone MelindaKenia ford ADRIAN Primary Care Provider +1- [phone] Encounter Details Date Type Department Care Team (Late st Contact Info) Description 04/11/2022 Telephone Obstetrics [place] [address] Alla Weinberg RN Social History Tobacco Use [...] Telephone Encounter - Alla Weinberg RN - 04/11/2022 3:35 PM EDT Aniya Luque called back. GA: 22w0d MFM patient Yesterday was evaluated in [facility] on the L&D floor For abdominal pain, shortness of breath, prickly feeling from head to toe Was told that her iron and potassium were both low States she has increased shortness of breath with activity And has a prickly feeling from head to toe, feels more numb and tingly today Reports mild chest pain today as well as left-sided pain between shoulder blade that radiates to her elbow - both of these symptoms have developed over the past few hours. Discussed with Aniya that, given the onset of increased shortness of breath, with increased numbness/tingling of her face and trunk, chest pain and left- sided pain as described above, the best planwould be for her to be evaluated in the nearest ED. Aniya states she lives close to [facility] and agrees to have her fiance take her there now for further evaluation. Aniya states she will update us once she has been evaluated. * Telephone Encounter - Alla Weinberg RN - 04/11/2022 3:15 PM EDT Returned call to Aniya Torres Ene FA: 22w0d MF patient Reached patient voicemail, left generic message requesting patient to return call to phone number left on message. documented in this encounter Plan of Treatment Upcoming Encounters Date Type Department Care Team (Late st Contact Info) Description 09/21/2024 8:15 AM EST Routine Obstetrics [place] [address] Emili Cabrera MD [facility] [place] [address] 09/26/2024 6:00 PM EST Appointment [facility] [place] [address] 10/16/2024 Hospital [place] [address] Dudley Aguilar MD [facility] DR OBST[place] [address] 11/08/2024 10:00 AM EST Hospital Encounter Non-[place] [address] Arrived documented as of this encounter Visit Diagnoses Not on filedocumented in this encounter Care Teams Inspector Heating And Refrigeration Relationship Specialty Start Date End Date Kenia Lawrence, FOREST LOGISTICS MANAGER [address] [place] [address] PCP - General Family Medicine 10/10/21 05/20/22 documented as of this encounter
--- OUTSIDE RECORDS SUMMARY | 2024-09-20 11:07 | XMS_ITS | Encounter Summary ---
Author Organization [facility] [place] [facility] [place] [address] Care Team Providers Care Home School Coordinator Name Role Phone Melinda, Kenia Marilin CAMPBELL Primary Care Provider +1- [phone] Reason for Referral * Diagnostic Test (Routine) - Closed Specialty Diagnoses / Procedures Referred By Contbill t Referred To Contact Cardiology Diagnoses HFrEF (heart failure with reduced ejection fraction) Angina pectoris with documented spasm Procedures Echocardiogram Transthoracic Ej Zurita MD [facility] [place] [address] [facility] [place] [address] Referral ID Status Reason Start Date Expiration Date V isits Requested Visits Authorized [id number] Closed Specialty Service Requested 02/13/2022 02/13/2023 1 1 Reason for Visit * Diagnostic Test (Routine) - Closed Specialty Diagnoses / Procedures Referred By Contac t Referred To Contact Cardiology Diagnoses HFrEF (heart failure with reduced ejection fraction) Angina pectoris with documented spasm Procedures Echocardiogram Transthoracic Ej Zurita MD [facility] [place] [address] [facility] [place] [address] Referral ID Status Reason Start Date Expiration Date V isits Requested Visits Authorized [id number] Closed Specialty Service Requested 02/13/2022 02/13/2023 1 1 Encounter Details Date Type Department Care Team (Late st Contact Info) Description 03/14/2022 10:27 AM EDT - 03/14/2022 11:59 PM EDT Hospital Encounter Non[place] [phone] Ej Zurita MD [facility] [place] [address] HFrEF (heart failure with reduced ejection fraction); Angina pectoris with documented spasm Discharge Disposition: Home Social History Tobacco Use [...] End Date fluticasone propionate (Flonase) 50 mcg/actuation [place], SuspensionIndications: allergic rhinitis 1 spray by Each [...] AM EST Routine Obstetrics [place] [phone] Emili Cabrera MD [facility] [place] [address] 09/26/2024 6:00 PM EST Appointment [facility] [place] [phone] 10/16/2024 Hospital [place] [phone] Dudley Aguilar MD [facility] DR OBSTET[place] [address] 11/08/2024 10:00 AM EST Hospital Encounter Non[place] [phone] Arrived documented as of this encounter Procedures Procedure Name Priority Date/Time Associated Diagnosis Comments ECHO COMPLETE Routine 03/14/2022 12:20 PM EDT HFrEF (heart failure with reduced ejection fraction) Angina pectoris with documented spasm documented in this encounter Results * ECHO COMPLETE (03/14/2022 12:20 PM EDT) Anatomical Region Laterality Modality Other 03/14/2022 10:5 1 AM EDT Narrative 03/14/2022 12:34 PM EDT [facility] ?[address] ? [place] [address] ?Voice: ?Fax: ? Echocardiogram Report Name: JOSE JUAN LUQUE ? Study Date: 03/14/2022 10:51 AMBP: 132/75 mmHg ? Patient Location: 4A 0000 : 1985 ? Height: 64 in ? Account: [id number] Age: 36 yrs ? Weight: 162 lb Gender: Female ?BSA: 1.8 m2 Ordering Physician: EJ ZURITA Referring Physician: EJ ZURITA Performed By: Justice Smith RDCS Reason For Study: HFrEF Exam Location: [facility]. Interpretation Summary Left ventricular systolic and [...] 11/04/2021, there is no significant change. Procedure Complete-[id number]. Left ventricular strain - 0399T. Satisfactory quality. [...] Procedure Note Graham Moreira MD - 03/14/2022 [place] [address] Voice: Fax: Echocardiogram Report Name: JOSE JUAN LUQUE Study Date: 0:51 AMBP: 132/75 mmHg Patient Location: [id number] : 1985 Height: 64 in Account: [id number] Age: 36 yrs Weight: 162 lb Gender: Female BSA: 1.8 m2 Ordering Physician: EJ ZURITA Referring Physician: EJ ZURITA Performed By: Justice Smith RDCS Reason For Study: HFrEF Exam Location: [facility]. Interpretation Summary Left ventricular systolic and [...] on 11/04/2021, there is nosignificant change. Procedure Complete-[id number]. Left ventricular strain - 0399T. Satisfactory quality.There [...] 3-5moderate 5 - 6-14large Aneurysmal 15-16diffuse Ej Zurita MD ECHO ORDERABLES documented in this encounter Visit Diagnoses Diagnosis HFrEF (heart failure with reduced ejection fraction) Angina pectoris with documented spasm Prinzmetal angina documented in this encounter Care Teams Home School Coordinator Relationship Specialty Start Date End Date Kenia Lawrence APRN [address] [place] [address] PCP - General Family Medicine 10/10/21 05/20/22 documented as of this encounter
--- OUTSIDE RECORDS SUMMARY | 2024-09-20 11:07 | XMS_ITS | Encounter Summary ---
Author Organization [facility] [place] [address] Care Team Providers Care Groundwater Monitoring Technician Name Role Phone MelindaKenia ford ADRIAN Primary Care Provider +1- [phone] Encounter Details Date Type Department Care Team (Late st Contact Info) Description 03/06/2022 Telephone Obstetrics [place] [phone] Carey Ibarra RN Social History Tobacco Use [...] Telephone Encounter - Carey Ibarra RN - 03/06/2022 9:53 AM EDT Answered incoming call from Aniya Luque, : 1985, GA: [id number]. Aniya reports I have a really big hemorrhoid she reports pain with activity. She reports last BM this morning, large and firm. Recommended increasing water intake and dietary fiber. Discussed clinic approved OTC medications inpregnancy for hemorrhoids and constipation. Aniya was able to write these options down. She agrees to try one for each complaint and see how that works for her. Encouraged her to call back with questions/concerns. documented in this encounter Plan of Treatment Upcoming Encounters Date Type Department Care Team (Late st Contact Info) Description 09/21/2024 8:15 AM EST Routine Obstetrics [place] [address] Emili Cabrera MD [facility] [place] [address] 09/26/2024 6:00 [place] [address] 10/16/2024 [place] [address] Dudley Aguilar MD [facility] DR OBST[place] [address] 11/08/2024 10:00 AM EST Hospital Encounter Non-[place] [address] Arrived documented as of this encounter Visit Diagnoses Not on filedocumented in this encounter Care Teams Groundwater Monitoring Technician Relationship Specialty Start Date End Date Kenia Lawrence APRN [address] [place] [address] PCP - General Family Medicine 10/10/21 05/20/22 documented as of this encounter
--- OUTSIDE RECORDS SUMMARY | 2024-09-20 11:08 | XMS_ITS | Encounter Summary ---
[place] [address] Care Team Providers Care Glove Presser Name Role Phone MelindaKenia ford ADRIAN Primary Care Provider +1- [phone] Encounter Details Date Type Department Care Team (Late st Contact Info) Description 01/04/2022 Telephone [place] [phone] Todd Melendrez Social History Tobacco Use Types Packs/Day Years [...] encounter Miscellaneous Notes * Telephone Encounter - Todd Melendrez - 01/04/2022 3:03 PM EDT Left message requesting return call. Please offer appointment with Sahil Dacosta for smoking cessation (see referral). documented in this encounter Plan of Treatment Upcoming Encounters Date Type Department Care Team (Late st Contact Info) Description 09/21/2024 8:15 AM EST Routine Obst[place] [address] Emili Cabrera MD [facility] [place] [address] 09/26/2024 6:00 PM EST Appointment [facility] [place] [address] 10/16/2024 [place] [address] Dudley Aguilar MD [facility] DR OBST[place] [address] 11/08/2024 10:00 AM EST Hospital Encounter Non-Invasive [place] [address] Arrived documented as of this encounter Visit Diagnoses Not on filedocumented in this encounter Care Teams Glove Presser Relationship Specialty Start Date End Date Kenia Lawrence APRN [address] [place] [address] PCP - General Family Medicine 10/10/21 05/20/22 documented as of this encounter
--- OUTSIDE RECORDS SUMMARY | 2024-09-20 11:08 | XMS_ITS | Encounter Summary ---
Author Organization [facility] [place] [address] Care Team Providers Care Export Administrator Name Role Phone Kenia Lawrence APRN Primary Care Provider +1- [phone] Encounter Details Date Type Department Care Team (Latest Contact Info) Description 01/09/2022 Travel Social History Tobacco Use Types Packs/Day [...] AM EST Routine Obstetrics [place] [address] Emili Cabrera MD [facility] [place] [address] 09/26/2024 6:00 PM EST Appointment [facility] [place] [phone] 10/16/2024 Hospital Encounter [place] [phone] Dudley Aguilar MD [facility] [place] [address] 11/08/2024 10:00 AM EST Hospital Encounter Non-[place] [phone] Arrived documented as of this encounter Visit Diagnoses Not on filedocumented in this encounter Care Teams Export Administrator Relationship Specialty Start Date End Date Kenia Lawrence APRN [address] [place] [address] PCP - General Family Medicine 10/10/21 05/20/22 documented as of this encounter
--- OUTSIDE RECORDS SUMMARY | 2024-09-20 11:08 | XMS_ITS | Encounter Summary ---
[place] [address] Care Team Providers Care Sr. Consultant Name Role Phone MelindaKenia ford ADRIAN Primary Care Provider +1- [phone] Encounter Details Date Type Department Care Team (Late st Contact Info) Description 01/15/2022 Telephone Cardiology at [address] [phone] Shereen Guzmán, RN Social History Tobacco Use [...] Telephone Encounter - Shereen Guzmán RN - 01/15/2022 10:07 AM EDT TC from patient reporting that she is having green puss draining from her incision on her left side and chest from her ICD placement in October. She states the incision on her chest has been achingrecently and this morning looked weird and bubble-y. States she pressed on the end of it and green puss started draining from it. She states she has had recent fevers of 100.2 over the weekend, has not checked it since. Secure chat message sent to EP triage nurse as well as procedural nurse and requested they assist patient. Shereen Guzmán physical therapy instructor Clinic at [facility] [address] * Telephone Encounter - Shereen Guzmán RN - 01/15/2022 9:04 AM EDT VM left from patient reporting there is green puss coming from my incisions. Unclear per chart review what incision is in regards to. TC to patient, no answer, message left recommending the patient contact her surgical team to report concerns, as well as, stating she may callthe cardiology clinic back if further assistance is still needed. Shereen Guzmán physical therapy instructor [facility] at [facility] [address] documented in this encounter Plan of Treatment Upcoming Encounters Date Type Department Care Team (Late st Contact Info) Description 09/21/2024 8:15 AM EST Routine Obstetrics and Gynecology at [place] [phone] Emili Cabrera MD [facility] MATERNAL [place] [address] 09/26/2024 6:00 PM EST Appointment [facility] [place] [phone] 10/16/2024 Hospital [place] [address] Dudley Aguilar MD [facility] OBSTETRICS [place] [address] 11/08/2024 10:00 AM EST Hospital Encounter Non-Invasive [place] [address] Arrived documented as of this encounter Visit Diagnoses Not on filedocumented in this encounter Care Teams Sr. Consultant Relationship Specialty Start Date End Date Kenia Lawrence APRN [address] [place] [address] PCP - General Family Medicine 10/10/21 05/20/22 documented as of this encounter
--- OUTSIDE RECORDS SUMMARY | 2024-09-20 11:08 | XMS_ITS | Encounter Summary ---
Author Organization [facility] Address [facility] [place] [address] Care Team Providers Care Senior Speech Pathologist Name Role Phone Kenia Lawrence APRN Primary Care Provider +1- [phone] Reason for Visit * Reason Comments Nicotine Dependence * Consultation (Routine) - Closed Specialty Diagnoses / Procedures Referred By Contbill t Referred To Contact Primary Care Diagnoses Nicotine dependence, cigarettes, uncomplicated Yudi Oliveira MD [facility] [place] [address] Sophy Dacosta APRN [facility] [place] [address] Referral ID Status Reason Start Date Expiration Date V isits Requested Visits Authorized [id number] Closed Consult, Test & Treat 12/19/2021 12/19/2022 1 1 Encounter Details Date Type Department Care Team (Late st Contact Info) Description 01/28/2022 9:30 AM EDT TH Visit (TeleHealth) Tobacco Treatment at [place] [phone] Sophy Dacosta V MANAGER [facility] [place] [address] Nicotine dependence, cigarettes, uncomplicated; Tobacco abuse counseling Social History Tobacco Use Types Packs/Day Years [...] as of this encounter Progress Notes * Sophy Dacosta APRN - 01/28/2022 9:30 AM EDT Thoracic Surgery - Tobacco Cessation Consultation Sophy Dacosta APRN [place] [address] FAX: HPI: Aniya Luque is a 36 y.o. female who is being seen today for tobacco cessation. Type of tobacco used: () Smokeless tobacco () e-cigarette (x) Cigarettes Current amount: 1 ppd Age initiated: 14 yrs Years smoked: 22 Previous quit attempts and methods: - quit for two months last year, restarted due stress, used the patches for 3 days Most recent quit attempt: Trying to wean down Are there other smokers in the home: Yes, also interested in quitting Are there children in the home: yes What will be different this time: I don't know. I have just been more stressed. Positive aspects of smoking: I don't. I think it tastes disgusting. Negative aspects of smoking: how it makes me feel, smelling like cigarette smoke, chest tightness, nauseous Reasons for quitting: Health Concerns about quitting: no Concerns about weight gain: no Triggers for smoking: Stress related to health problems Ready to set a quit date: I keep picking days. Readiness: - Importance scale: 7 ('because I know its something I need to do. My breathing is getting worse) - Confidence scale: 4 (Because there are days that I feel can and there are days that I can't) Support system: yes, fiance Medications: Current Outpatient Medications on File Prior to Visit Medication Sig Dispense Refill ??? clonazePAM (KlonoPIN) 1 mg Tablet Take 1 mg by mouth 2 times daily. ??? amLODIPine (Norvasc) 10 mg Tablet Take 0.5 tablets by mouth 2 times daily. 90 tablet 3 ??? Hydrocortisone 0.5 % Lotion Every 12 hours. ??? famotidine (Pepcid) 20 mg Tablet Take 1 tablet by mouth 2 times daily (before meals). Substitute with OTC as needed 60 tablet 0 ??? fluticasone propionate (Flonase) 50 mcg/actuation [place], Suspension 1 spray by Each Nare route [...] Daily at Noon.) 60 tablet 0 ??? cetirizine (ZyrTEC) 10 mg Tablet TAKE ONE TABLET BY MOUTH EVERY DAY ??? fluticasone propionate (Flovent HFA) 110 mcg/actuation HFA Aerosol Inhaler Every 12 hours. ??? ipratropium-albuteroL (Duoneb) 0.5 mg-3 mg(2.5 mg base)/3 mL Solution for Nebulization Every 6 hours. ??? mag/aluminum/sod bicarb/alginc (GAVISCON ORAL) Take by mouth. ??? diphenhydrAMINE/aluminum-magnesium hydroxide with simethicone/lidocaine (BMX) (6.67 mg-0.83 mg-13.33 mg-1.33 mg/mL) oral liquid Take by mouth. ??? albuterol 90 mcg/actuation HFA Aerosol Inhaler Inhale 2 puffs into the lungs every 4 hours as needed for Wheezing. Use with spacer ??? calcium carbonate (TUMS) 200 mg calcium (500 mg) Tablet, Chewable Take 1 tablet by mouth as needed. ??? isosorbide mononitrate CR (Imdur) 30 mg Tablet Sustained Release 24 hr Take 0.5 tablets by mouth daily. (Patient not taking: Reported on 01/28/2022) 90 tablet 3 ??? diclofenac (Voltaren) 1 % Gel APPLY A QUARTER SIZED AMOUNT TO PAINFUL AREA ON CHEST TWO TIMES ADAY FOR 14 DAYS ??? vitamin C 500 mg Tablet TAKE ONE TABLET BY MOUTH EVERY DAY ??? pantoprazole EC (Protonix) 40 mg Tablet, Delayed Release (E.C.) Take 40 mg by mouth daily. ??? sucralfate (Carafate) 1 gram Tablet TAKE 1 TABLET BY MOUTH TWICE DAILY ON AN EMPTY STOMACH ??? prazosin (MINIPRESS) 1 mg Capsule Take 1 mg by mouth 3 times daily. No current facility-administered medications on file prior to visit. Allergies: Allergies Allergen Reactions ??? Augmentin [Amoxicillin-Pot Clavulanate] Rash Unsure if allergic ??? Ipratropium Other (See Comments) ??? Morphine Other (See Comments) Cannot recall ??? Penicillins Rash ??? Seroquel [Quetiapine] Other (See Comments) Made head feel loopy. Past Medical History: Patient Active Problem List Diagnosis Date Noted ??? Subcutaneous defibrillator implanted 11/12/2019 11/12/2021 ??? Cigarette smoker 11/11/2021 ??? 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 *History of COVID-19 11/05/2021 ??? Cardiac arrest 11/04/2021 ??? Gastroesophageal reflux disease 11/06/2020 ??? Borderline personality disorder 05/23/2020 ??? Post-traumatic stress disorder, chronic 05/23/2020 ??? Anxiety disorder, unspecified 05/22/2020 ??? Chest pain 01/17/2016 ??? Skin disease 03/24/2015 ??? Anxiety 08/03/2014 ??? Depression 08/03/2014 ??? Asthma 08/03/2014 ??? [...] Headache ??? Hypertension 08/03/2014 Past Surgical History: Past Surgical History: Procedure Laterality Date ??? DILATION AND CURETTAGE OF UTERUS x2 ??? PRO UPPER GI ENDOSCOPY, DIAGNOSTIC N/A 01/09/2021 EGD, UPPER GI ENDOSCOPY performed by Dudley Alva MD at [facility] Social History: Social History Socioeconomic History ??? [...] Housing Stability: Not on file Physical Exam: Deferred Assessment: NICOTINE DEPENDENCE 0 Points 1Points 2 Points 3 Points Score 1.How soon after you wake do you smoke your first cigarette? After 60 minutes 31-60 minutes minutes 6-30 minutes Within 5 minutes 3 2. Do you find it difficult to refrain from smoking in places where it is forbidden ex anabaptism No Yes 1 3. Which cigarette would you hate to give up ? All others The first one in the morning 0 4. How many cigarette do you smoke a day ? 10 or less 11-20 21-30 30 or more 1 Do you smoke more frequently during the first hour after waking than the rest of the day? No Yes 0 6. Do you smoke if you are so ill that you are in bed all day ? No Yes 1 Fagerstrom Score: 6 Classification: 0-2 Very low 3-4 Low 5 Moderate 6-7 High 8-10 Very high Aniya Luque is a 36 y.o. female seen today for smoking cessation counseling. She is currently smoking 1 ppd and does wish to quit at this time. I reviewed the physiology of addiction as well as apparent health risks specific for her. I discussed the options for treatment including NRT, Zyban and Chantix. I reviewed possible side effects of therapy. I stressed that medication alone is not optimum but used in conjunction with behavioral counseling will add to success for cessation. Behavioral counseling in addition to pharmacotherapy recommendations were given. Behavioral counseling includes delaying, keeping a journal of her cigarettes and weaning down. The patient has opted for using be havior changes strategies. I will discussed medications with her clay house worker and OB doctors. Stage of Change: Precontemplation: Contemplation: X Preparation: Action: Maintenance: CO level: Deferred 45 minutes were spent with this patient in counseling for tobacco cessation. Plan: Quit Date: planning to wean down 1. Discuss with OB and cardiology providers about use of NRT (21 mg nicotine patch and short actingNRT) 2. Discussed behavioral change including delaying, keeping a journal of her cigarettes and weaning down 3. Call with any questions or concerns 4. Follow up in 1 week, 02/04/22 at 10:30 over the phone Patient verbally consents to this telephone visit and understands that this visit may be billed, similar to a clinic office visit. I provided care to the patient today via telephone call. The total time associated with this visit was 45 minutes. Sophy Dacosta APRN 01/28/22 Thoracic Surgery - Tobacco Cessation [facility] documented in this encounter Plan of Treatment Upcoming Encounters Date Type Department Care Team (Late st Contact Info) Description 09/21/2024 8:15 AM EST Routine Obstetrics [place] [address] Emili Cabrera MD [facility] [place] [address] 09/26/2024 6:00 PM EST Appointment [facility] [place] [address] 10/16/2024 Hospital [place] [address] Dudley Aguilar MD [facility] OBSTETRICS [place] [address] 11/08/2024 10:00 AM EST Hospital Encounter Non-[place]vasive [place] [address] Arrived Scheduled Referrals Name Type Priority Associated Diagnoses Orde r Schedule Referral to Smoking Cessation Program Outpatient Referral Routine Nicotine dependence, cigarettes, uncomplicated Ordered: 12/19/2021 documented as of this encounter Visit Diagnoses Diagnosis Nicotine dependence, cigarettes, uncomplicated Tobacco abuse counseling Counseling on substance use and abuse documented in this encounter Care Teams Senior Speech Pathologist Relationship Specialty Start Date End Date Kenia Lawrence APRN [address] [place] [address] PCP - General Family Medicine 10/10/21 05/20/22 documented as of this encounter
--- OUTSIDE RECORDS SUMMARY | 2024-09-20 11:08 | XMS_ITS | Encounter Summary ---
Author Organization [facility] Address [facility] [place] [address] Care Team Providers Care Subsystems Engineer Name Role Phone MelindaKenia ford ADRIAN Primary Care Provider +1- [phone] Reason for Visit * Reason Comments Routine Visit Encounter Details Date Type Department Care Team (Late st Contact Info) Description 01/09/2022 8:45 AM EDT Routine Obstetrics [place] [address] Romana Torres MD [facility] DR OBSTETRICS [place] [address] GA: 8w6d Social History Tobacco Use Types Packs/Day Years [...] Sign Reading Time Taken Comments Blood Pressure 118/69 01/09/2022 8:49 AM EDT Pulse - - Temperature - - Respiratory Rate - - Oxygen Saturation - - Inhaled Oxygen Concentration - - Weight 73.7 kg (162 lb 8 oz) 01/09/2022 8:49 AM EDT Height - - Body Mass Index 27.89 01/01/2022 9:30 AM EDT documented in this encounter Progress Notes * Romana Torres MD - 01/09/2022 8:45 AM EDT Rare use of NTG Some palpitations. She checks her heart rate and finds it normal. Some LLQ pain without bleeding Patient Vitals for the past 24 hrs: BP 01/09/22 0849 118/69 FHR attempt unsuccessful to detect by Doppler She want to proceed with cell free DNA testing which could be sent as early as a few days from now. I let her know that waiting longer will increase the likelihood of informative result. RTC 1-2 weeks. Romana Torres MD documented in this encounter Plan of Treatment Upcoming Encounters Date Type Department Care Team (Late st Contact Info) Description 09/21/2024 8:15 AM EST Routine Obstetrics [place] [address] Emili Cabrera MD [facility] [address] [place] [address] 09/26/2024 6:00 PM EST Appointment [facility] [place] [address] 10/16/2024 Hospital [place] [address] Dudley Aguilar MD [facility] OBSTETRICS [place] [address] 11/08/2024 10:00 AM EST Hospital Encounter [place] [address] Arrived documented as of this encounter Results * Panorama Screen (01/16/2022 3:47 PM EDT) Panorama Screen See Scan Report [facility] Comment:Test performed by Marianna cooper, [address] [place] [address], [address], [place] [address] Blood 01/16/2022 3:47 PM EDT 01/17/2022 8:12 AM EDT Narrative Resulting Agency Comment Spec In Lab Romana Torres MD LAB SEND OUT ORDERAB LES [facility] [place] [address] documented in this encounter Visit Diagnoses Diagnosis Supervision of high risk in first trimester Unspecified high-risk documented in this encounter Care Teams Subsystems Engineer Relationship Specialty Start Date End Date Kenia Lawrence APRN [address] [place] [address] PCP - General Family Medicine 10/10/21 05/20/22 documented as of this encounter
--- OUTSIDE RECORDS SUMMARY | 2024-09-20 11:08 | XMS_ITS | Encounter Summary ---
Author Organization [facility] [place] [address] Care Team Providers Care Credit Risk Specialist Name Role Phone Kenia Lawrence ADRIAN Primary Care Provider +1- [phone] Encounter Details Date Type Department Care Team (Late st Contact Info) Description 01/16/2022 Community Orders External [phone] Lula Swanson APRN [address] [place] [address] [place] [id number] Social History Tobacco Use Types Packs/Day Years [...] AM EST Routine Obstetrics [place] [address] Emili Cabrera MD [facility] [place] [address] 09/26/2024 6:00 PM EST Appointment [facility] [place] [address] 10/16/2024 [place] [address] Dudley Aguilar MD [facility] DR OBSTET[place]ICS [place] [address] 11/08/2024 10:00 AM EST Hospital Encounter Non-[place] [address] Arrived documented as of this encounter Visit Diagnoses Not on filedocumented in this encounter Additional Health Concerns Infection Onset Date Last Indicated Resolved Time Rule Out Respiratory 06/20/2022 06/20/2022 022 11:02 PM EDT Rule Out COVID-19 06/20/2022 06/20/2022 06/20/2022 11:02 PM EDT Rule Out Respiratory 07/31/2022 07/31/2022 022 11:50 AM EDT Rule Out COVID-19 07/31/2022 07/31/2022 07/31/2022 1:35 PM EDT Rule Out COVID-19 10/20/2022 10/20/2022 10/20/2022 9:20 AM EST Rule Out Respiratory 05/27/2024 05/27/2024 024 10:24 PM EDT Rule Out COVID-19 05/27/2024 05/27/2024 05/27/2024 10:24 PM EDT documented as of this encounter Care Teams Credit Risk Specialist Relationship Specialty Start Date End Date Kenia Lawrence APRN [address] [place] [address] PCP - General Family Medicine 09/29/23 documented as of this encounter
--- OUTSIDE RECORDS SUMMARY | 2024-09-20 11:08 | XMS_ITS | Encounter Summary ---
Author Organization [facility] [place] [address] Care Team Providers Care Retail Training Manager Name Role Phone MelindaKenia ford ADRIAN Primary Care Provider +1- [phone] Encounter Details Date Type Department Care Team (Latest Contact Info) Description 01/16/2022 3:15 PM EDT Laboratory Appointment Lab [address] [place] [address] Angina pectoris with documented spasm; Supervision of high risk in first trimester Social History Tobacco Use Types [...] AM EST Routine Obstetrics [place] [address] Emili Cabrera MD [facility] [place] [address] 09/26/2024 6:00 PM EST Appointment [facility] [place] [address] 10/16/2024 Hospital [place] [address] Dudley Aguilar MD [facility] DR [place] [address] 11/08/2024 10:00 AM EST Hospital Encounter Non-[place] [address] Arrived documented as of this encounter Procedures Procedure Name Priority Date/Time Associated Diagnosis Comments TYPE AND SCREEN VALIDITY Routine 01/16/2022 3:47 PM EDT PANORAMA SCREEN Routine 01/16/2022 3:47 PM EDT Supervision of high risk in first trimester ABO/RH TYPING Routine 01/16/2022 3:47 PM EDT Supervision of high risk in first trimester ANTIBODY SCREEN Routine 01/16/2022 3:47 PM EDT Supervision of high risk in first trimester HC ABO-MICROTITER Routine 01/16/2022 3:4 7 PM EDT Supervision of high risk in first trimester HC VENIPUNCTURE Routine 01/16/2022 3:47 PM EDT Angina pectoris with documented spasm documented in this encounter Results * Type and Screen Validity (01/16/2022 3:47 PM EDT) T&S only valid at [facility] Comment:This Type and Screen result is only valid at the [facility] Blood 01/16/2022 3:47 PM EDT 01/16/2022 3:55 PM EDT Narrative Resulting Agency Comment Spec In Lab Kaila Castellanos MD BLOOD BANK LAB ORD ERABLES Performing Organization Address [facility]/ZIP Co de Phone Number [facility] [place] [address] * Antibody screen (01/16/2022 3:47 PM EDT) Ab Screen Interp Negative [facility] Expires at 2359 on: 01/19/2022 [facility] Blood 01/16/2022 3:47 PM EDT 01/16/2022 3:55 PM EDT Narrative Resulting Agency Comment Spec In Lab Kaila Castellanos MD BLOOD BANK LAB ORD ERABLES Performing Organization Address [facility]/ZIP Co de Phone Number [facility] [place] [address] * ABO/Rh Typing (01/16/2022 3:47 PM EDT) ABORH Type O Pos [facility] Blood 01/16/2022 3:47 PM EDT 01/16/2022 3:55 PM EDT Narrative Resulting Agency Comment Spec In Lab Kaila Castellanos MD BLOOD BANK LAB ORD ERABLES Performing Organization Address [facility]/ZIP Co de Phone Number [facility] [place] [address] * Panorama Screen (01/16/2022 3:47 PM EDT) Panorama Screen See Scan Report [facility] Comment:Test performed by Marianna cooper, [address] [place] [address], [address], [place] [address] Blood 01/16/2022 3:47 PM EDT 01/17/2022 8:12 AM EDT Narrative Resulting Agency Comment Spec In Lab Romana Torres MD LAB SEND OUT ORDERAB LES [facility] [place] [address] * Basic Metabolic Panel (non-fasting) (01/16/2022 3:47 PM EDT) Glucose 83 65 - 199 mg/dL [facility] Comment:Diabetes: >=200 mg/d L plus symptoms Blood Urea Nitrogen 10 8 - 18 mg/dL [facility] Creatinine 0.81 0.70 - 1.20 mg/dL [facility] Sodium 137 135 - 145 mmol/L [facility] Potassium 3.9 3.5 - 5.0 mmol/L [facility] Comment: Please note: ??Patients with WBC >100,000 may have falsely elevated Potassium levels. ??For accurate Potassium quantification in these patients send serum separator tube (gold top) for subsequent determinations. ??Contact the Clinical Chemistry Laboratory if there are any questions. Chloride 100 98 - 107 mmol/L [facility] Carbon Dioxide 23 22 - 31 mmol/L [facility] Anion Gap 14 5 - 15 mmol/L [facility] Calcium 9.4 8.5 - 10.5 mg/dL [facility] Est Glomerular Filtration Rate 93 >=60 mL/min/1. 73 m?? [facility] Comment: This patient? s estimated glomerular filtration rate (eGFR) is between 93 mL/min/1.73 m2 (patients with less muscle mass) and 108 mL/min/1.73 m2 (patients with more muscle mass) as determined by the CKD-EPI equation. Assessment of eGFR is not appropriate when creatinine concentrations are rapidly changing. For clinical decisions where creatinine clearance will affect therapy, a 24-hour urine creatinine clearance may be advised. Assignment of CKD stage 1 - 5 for patients with an eGFR near the transition point between stages may be based on clinical assessment of muscle mass and symptoms in addition to eGFR. 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
--- OUTSIDE RECORDS SUMMARY | 2024-09-20 11:08 | XMS_ITS | Encounter Summary ---
Author Organization [facility] [place] [address] Care Team Providers Care Musician Instrumental Name Role Phone MelindaKenia ford ADRIAN Primary Care Provider +1- [phone] Encounter Details Date Type Department Care Team (Late st Contact Info) Description 01/11/2022 10:30 AM EDT Routine Obstetrics [place] [address] Yudi Barone MD [facility] [address] OBSTETRICS [place] [address] GA: 9w1d Social History Tobacco Use Types Packs/Day Years [...] as of this encounter Progress Notes * Yudi Barone MD - 01/11/2022 10:30 AM EDT Division of Maternal Medicine Department of [employer] [place] [address] MFM-Telephone Encounter. 1. Reason/purpose for phone call: 2. The patient voiced an understanding of the reason and intent of the phone call, and provided verbal consent to discuss clinical issues by phone. Additionally, the patient acknowledged that a telephone consultation is a billable encounter, and that the patient or their medical insurance carrier co uld be billed. 3. Summary of conversation, decision making, and plan: Cristiane requested telephone visit to discuss ultrasound findings at [facility]. Viable IUP with subchorionic hemorrhage. FHT 189. While the FHT is somewhat higher than is typical in the first trimester, this is a non-specific finding. The subchorionic hemorrhage is not dissimilar to what was seen here at [facility] last week. Ms. Lundy states she feels like she is getting mixed messages regarding her . She states that one doctor said to her that there are risks, but we could get you through it, and another told her she is very high risk. I pointed out that both statements can be true: she is at significantrisk for an adverse cardiac event which could result in her or significant disability, and that could severely adversely impact the . I reiterated the fact that not being is always safer than being . I also reiterated that no one can predict exactly what will happen over the course of the if she opts to continue. I again stated that no matter what she brent ses, to interrupt the or to continue the , we would support her choice. I recommend that she have a follow-up ultrasound here at [facility], rather than at [facility], as this is her primary place for OB care. Yudi BARONE MD documented in this encounter Plan of Treatment Upcoming Encounters Date Type Department Care Team (Late st Contact Info) Description 09/21/2024 8:15 AM EST Routine Obstetrics [place] [address] Emili Cabrera MD [facility] [address] [place] [address] 09/26/2024 6:[address] [facility] [place] [address] 10/16/2024 [place] [address] Dudley Aguilar MD [facility] DR OBSTETRICS [place] [address] 11/08/2024 10:00 AM EST Hospital Encounter Non[place] [address] Arrived documented as of this encounter Results * US OB Viability Transvaginal (01/16/2022 1:54 PM EDT) Anatomical Region Laterality Modality Pelvis, Abdomen Ultrasound 01/16/2022 1:33 PM EDT Impressions 01/16/2022 1:59 PM EDT 1st Trimester Summary Single living intrauterine with a gestational age of 9w 6d based on LMP ??(11/08/21). The crown rump length corresponds to a gestational age of 9w 4d. Enlarging now moderate subchorionic hemorrhage. Thank you for letting us participate in the care of this patient. If you are a health care provider and have any questions regarding this report, please contact the number above. For patients who have questions, please contact the health ambulatory care nurse that requested your imaging first. ? Danielle Rausch, Shake Table Operator Electronically Signed Final Report ?? 01/16/2022 01:59 pm Narrative 01/16/2022 1:59 PM EDT OBSTETRICS REPORT ?(Signed Final 01/16/2022 01:59 pm) PATIENT INFO: ID #: ? [id number] ?: ??[birth year] (36 yrs)(F) Name: ? JOSE JUAN LUNDY ? Visit Date: 01/16/2022 01:33 pm PERFORMED BY: Performed By: ? Faiza Thakkar RDMS Attending: ?Shalom LOUISE, Danielle Alarcon Resident: ? [place], Darron Rodrigues Referred By: ?Yudi BARONE Location: ? [facility] SERVICE(S) PROVIDED: UOBTV - Viability -Transvaginal - [id number] ? [id number] INDICATIONS: 9 weeks gestation of ? Z3A. f/u viability; trace subchorionic hemorrhage TECHNIQUE/SCAN QUALITY: Technique: ?? Transducer ID#: 21 VITAL SIGNS: Weight (lb): 160.0 Height: ?5'4 ? BMI: ? 27.46 EVALUATION: Num Of Fetuses: ? 1 Preg. Location: ? Intrauterine Gest. Sac: ?Visualized Yolk Sac: ? 5.0 Pole: ? Visualized Heart Rate(bpm): ??175 Presentation: ? Too early to evaluate Placenta: ? Too early to evaluate Amniotic Fluid ALPHONSO FV: ?Too early to evaluate Comment: ?Moderate subchorionic hemorrhage seen. --------- BIOMETRY: --------- CRL: ?27.0 ??mm ? G.Age: ?? 9w 4d ? NAZIA: ?? 08/17/22 OB HISTORY: : ?1 GESTATIONAL AGE: LMP: ? 9w 6d ? Date: ??11/08/21 ? NAZIA: ?? 08/15/22 Best: ?9w 6d ?Det. By: ??LMP ??(11/08/21) ?NAZIA: ?? 08/15/22 CERVIX UTERUS ADNEXA: Right Ovary Not visualized. Left Ovary Size(cm) ? 4.1 ??x ?? 1.5 ?x ??2.0 ? Vol(ml): 6.4 Visualized Cul De Sac No fluid seen Procedure Note Danielle Rausch MD - 01/16/2022 OBSTETRICS REPORT (Signed Final 01/16/2022 01:59 pm) PATIENT INFO: ID #: [id number] : [birth year] (36 yrs)(F) Name: JOSE JUAN LUNDY Visit Date: 01/16/2022 01:33 pm PERFORMED BY: Performed By: Faiza Thakkar RDMS Attending: Danielle Rausch MD Resident: Darron Dia MD Referred By: Yudi LOZADA [facility] Location: [facility] SERVICE(S) PROVIDED: UOBTV - Viability -Transvaginal - [id number] INDICATIONS: 9 weeks gestation of Z3A.09 f/u viability; trace subchorionic hemorrhage TECHNIQUE/SCAN QUALITY: Technique: Transducer ID#: 21 VITAL SIGNS: Weight (lb): 160.0 Height: 5'4 BMI: 27.46 EVALUATION: Num Of Fetuses: 1 Preg. Location: Intrauterine Gest. Sac: Visualized Yolk Sac: 5.0 Pole: Visualized Heart Rate(bpm): 175 Presentation: Too early to evaluate Placenta: Too early to evaluate Amniotic Fluid ALPHONSO FV: Too early to evaluate Comment: Moderate subchorionic hemorrhage seen. --------- BIOMETRY: --------- CRL: 27.0 mm G.Age: 9w 4d NAZIA: 08/17/22 OB HISTORY: : 1 GESTATIONAL AGE: LMP: 9w 6d Date: 11/08/21 NAZIA: 08/15/22 Best: 9w 6d Det. By: LMP (11/08/21) NAZIA: 08/15/22 CERVIX UTERUS ADNEXA: Right Ovary Not visualized. Left Ovary Size(cm) 4.1 x 1.5 x 2.0 Vol(ml): 6.4 Visualized Cul De Sac No fluid seen IMPRESSION 1st Trimester Summary Single living intrauterine with a gestational age of 9w 6d based on LMP (11/08/21). The crown rump length corresponds to a gestational age of 9w 4d. Enlarging now moderate subchorionic hemorrhage. Thank you for letting us participate in the care of this patient. If you are a health care provider and have any questions regarding this report, please contact the number above. For patients who have questions, please contact the health ambulatory care nurse that requested your imaging first. Danielle Rausch, Shake Table Operator Electronically Signed Final Report 01/16/2022 01:59 pm E Luz Barone MD [facility] ORDERAB LES documented in this encounter Visit Diagnoses Diagnosis Supervision of high risk in first trimester Unspecified high-risk Supervision of high risk in first trimester Unspecified high-risk documented in this encounter Care Teams Musician Instrumental Relationship Specialty Start Date End Date Kenia Lawrence, SECOND RIGGER [address] [place] [address] PCP - General Family Medicine 10/10/21 05/20/22 documented as of this encounter
--- OUTSIDE RECORDS SUMMARY | 2024-09-20 11:08 | XMS_ITS | Encounter Summary ---
Author Organization [facility] Address [facility] [place] [address] Care Team Providers Care Chair Spring Assembler Name Role Phone Kenia Lawrence ADRIAN Primary Care Provider +1- [phone] Encounter Details Date Type Department Care Team (Late st Contact Info) Description 01/15/2022 Orders Only Cardiology at [address] [address] Social History Tobacco Use Types [...] AM EST Routine Obstetrics [place] [address] Emili Cabrera MD [facility] [place] [address] 09/26/2024 6:00 PM EST Appointment [facility] [place] [address] 10/16/2024 Hospital Encounter [facility] [place] [address] Dudley Aguilar MD [facility] DR OBSTETRICS AND GYNECOLOGY [place] [id number] 11/08/2024 10:00 AM EST Hospital Encounter Non-Invasive [place] [address] Arrived documented as of this encounter Procedures Procedure Name Priority Date/Time Associated Diagnosis Comments CARDIAC DEVICE CHECK - REMOTE PATIENT INITIATED Routine 01/15/2022 7:34 AM EDT documented in this encounter Results * Cardiac device check - Remote Patient Initiated (01/15/2022 7:34 AM EDT) Pathologist [facility] Implantable Pulse Generator Type Defibrillator [employer]CO Implantable Pulse Generator Model A219 [employer] Implantable Pulse Generator Serial Number [id number] [employer] Implantable Pulse Generator Product Sales Representative [employer] IDCO Implantable Pulse Generator Implant Date 20211112 IDCO Date Time Interrogation Session IDCO Type Interrogation Session Remote Patient Initiated IDCO Clinic Name [facility] IDCO Battery Date Time of Measurements IDCO Battery Status Beginning of Service IDCO Battery Remaining Percentage 100 IDCO Tachy Therapy Setting Ventricular Status On [...] IDCO Episode Statistic Recent Date Time End 20220115 IDCO Episode Statistic Total Count 0 IDCO Episode Statistic Total Date Time Start 20211112 IDCO Episode Statistic Total Date Time End 20220115 IDCO Episode Statistic Type Category VF IDCO Episode Statistic Vendor Type Category VF IDCO Episode Statistic Recent Count 0 IDCO Episode Statistic Recent Date Time Start 20211128 IDCO Episode Statistic Recent Date Time End 20220115 IDCO Episode Statistic Total Count 0 IDCO Episode Statistic Total Date Time Start 20211112 IDCO Episode Statistic Total Date Time End 20220115 IDCO Therapy Statistic Recent Date Time Start 20211128 IDCO Therapy Statistic Recent Date Time End 20220115 IDCO Therapy Statistic Recent Shocks Delivered 0 IDCO Therapy Statistic Total Date Time Start 20211112 IDCO Therapy Statistic Total Date Time End 20220115 IDCO Therapy Statistic Total Shocks Delivered 1 IDCO Implantable Lead Model 3501 [employer] Implantable Lead Serial Number [id number] [employer] Implantable Lead Product Sales Representative [employer] IDCO Implantable Lead Location Other IDCO Implantable Lead Location Detail 1 Subcutaneous IDCO Anatomical Region Laterality Modality Other 01/15/2022 7:34 AM EDT Physician Cardiology IMPLANTABLE CARD IAC DEVICE documented in this encounter Visit Diagnoses Not on filedocumented in this encounter Care Teams Chair Spring Assembler Relationship Specialty Start Date End Date Kenia Lawrence APRN [address] [place] [address] PCP - General Family Medicine 10/10/21 05/20/22 documented as of this encounter
--- OUTSIDE RECORDS SUMMARY | 2024-09-20 11:08 | XMS_ITS | Encounter Summary ---
Author Organization [facility] [place] [address] Care Team Providers Care Makeup Instructor Name Role Phone MelindaKenia ford ADRIAN Primary Care Provider +1- [phone] Encounter Details Date Type Department Care Team (Late st Contact Info) Description 01/07/2022 Telephone Obstetrics [place] [phone] Yolanda Humphrey, RN Social History Tobacco Use [...] Telephone Encounter - Yolanda Humphrey RN - 01/07/2022 2:08 PM EDT Called to patient re: abdominal pain 8w4d GA Hx notable for HTN, coronary vasopasm, IN in October 2021, with subcutaneous defib implant in place. Patient calls today with c/o sharp abdominal pain a couple inches under ribs, more to left side that she states last night was coming and going but today is more constant. Patient states she believes she is constipated. She states she has gone to the bathroom several times since this morning and has only been able to pass small amounts of hard stool each time. She reports she is passing small amounts of gas. She states she has not tried anything for constipation. She states she hasn't been eating or drinking much the last couple of days, has had approx 16 oz of water today. She states she gets some relief from the pain when she is up and moving around. She denies any chest pain or SOB. She denies any vaginal or rectal bleeding/ blood in stool. Advised patient that she can try stool softener such as colace and/or miralax to help encourage a bowel movement. Advised her if she does not have an adequate BM in the next 12-24 hours she should call back. Advised her to increase PO intake of fluids as well. Patient agrees to this plan. documented in this encounter Plan of Treatment Upcoming Encounters Date Type Department Care Team (Late st Contact Info) Description 09/21/2024 8:15 AM EST Routine Obstetrics [place] [address] Emili Cabrera MD [facility] [place] [address] 09/26/2024 6:00 PM EST Appointment [facility] [place] [phone] 10/16/2024 [place] [address] Dudley Aguilar MD [facility] [place] [address] 11/08/2024 10:00 AM EST Hospital Encounter Non-Invasive [place]iology [place] [address] Arrived documented as of this encounter Visit Diagnoses Not on filedocumented in this encounter Care Teams Makeup Instructor Relationship Specialty Start Date End Date Kenia Lawrence APRN [address] [place] [address] PCP - General Family Medicine 10/10/21 05/20/22 documented as of this encounter
--- OUTSIDE RECORDS SUMMARY | 2024-09-20 11:08 | XMS_ITS | Encounter Summary ---
[place] [address] Care Team Providers Care Sales Center Manager Name Role Phone MelindaKenia ford ADRIAN Primary Care Provider +1- [phone] Encounter Details Date Type Department Care Team (Late st Contact Info) Description 01/15/2022 Telephone Cardiology at [address] [phone] Tiffany Moon, RN Social History Tobacco Use Types Packs/Day [...] Telephone Encounter - Tiffany Moon RN - 01/15/2022 8:39 AM EDT RTC to Mrs Luque regarding her message stating her incision is oozing green. Left VM message requesting she contact the surgical team, and left call back number for any further concerns, or issues. Tiffany Moon (Jodie), RN, BSN Cardiology Ambulatory Clinic documented in this encounter Plan of Treatment Upcoming Encounters Date Type Department Care Team (Late st Contact Info) Description 09/21/2024 8:15 AM EST Routine Obstetrics [place] [address] Emili Cabrera MD [facility] [place] [address] 09/26/2024 6:00 PM EST Appointment [facility] [place] [phone] 10/16/2024 Hospital [place] [address] Dudley Aguilar MD [facility] DR OBSTETRICS [place] [address] 11/08/2024 10:00 AM EST Hospital Encounter [place] [phone] Arrived documented as of this encounter Visit Diagnoses Not on filedocumented in this encounter Care Teams Sales Center Manager Relationship Specialty Start Date End Date Kenia Lawrence APRN [address] [place] [address] PCP - General Family Medicine 10/10/21 05/20/22 documented as of this encounter
--- OUTSIDE RECORDS SUMMARY | 2024-09-20 11:08 | XMS_ITS | Encounter Summary ---
Author Organization [facility] [place] [address] Care Team Providers Care Event Set Up Specialist Name Role Phone MelindaKenia ford ADRIAN Primary Care Provider +1- [phone] Encounter Details Date Type Department Care Team (Late st Contact Info) Description 01/09/2022 Telephone Obstetrics [place] [phone] Carey Ibarra RN Social History Tobacco Use [...] Telephone Encounter - Carey Ibarra RN - 01/09/2022 9:40 AM EDT Incoming call from Miryam, a durable medical equipment repairer at Aniya Luque's PCP office at [facility]. Miryam states Aniya came in asking for lidocaine for pain stating it was okay per OB. Tami was unable to provide more details about what type of pain Aniya is having. I stated this is very atypical and we are not giving authorization for this through the phone. I recommended ronaldamara Menaher call the clinic directly. documented in this encounter Plan of Treatment Upcoming Encounters Date Type Department Care Team (Late st Contact Info) Description 09/21/2024 8:15 AM EST Routine Obstetrics [place] [address] Emili Cabrera MD [facility] [place] [address] 09/26/2024 6:00 PM EST Appointment [facility] [place] [address] 10/16/2024 [place] [address] Dudley Aguilar MD [facility] DR [place] [address] 11/08/2024 10:00 AM EST Hospital Encounter Non-Invasive [place] [address] Arrived documented as of this encounter Visit Diagnoses Not on filedocumented in this encounter Care Teams Event Set Up Specialist Relationship Specialty Start Date End Date Kenia Lawrence APRN [address] [place] [address] PCP - General Family Medicine 10/10/21 05/20/22 documented as of this encounter
--- OUTSIDE RECORDS SUMMARY | 2024-09-20 11:08 | XMS_ITS | Encounter Summary ---
Author Organization [facility] Address [facility] [place] [address] Care Team Providers Care Manager Forms Name Role Phone Kenia Lawrence ADRIAN Primary Care Provider +1- [phone] Encounter Details Date Type Department Care Team (Late st Contact Info) Description 01/15/2022 Orders Only Cardiology at [address] [address] Social History Tobacco Use [...] AM EST Routine Obstetrics [place] [address] Emili Cabrera MD [facility] [place] [address] 09/26/2024 6:00 PM EST Appointment [facility] [place] [address] 10/16/2024 Hospital [place]counter [place] [address] Dudley Aguilar MD [facility] DR OBSTETRICS AND GYNECOLOGY [place] [id number] 11/08/2024 10:00 AM EST Hospital Encounter [place] [address] Arrived documented as of this encounter Procedures Procedure Name Priority Date/Time Associated Diagnosis Comments CARDIAC DEVICE CHECK - REMOTE PATIENT INITIATED Routine 01/15/2022 7:32 AM EDT documented in this encounter Results * Cardiac device check - Remote Patient Initiated (01/15/2022 7:32 AM EDT) Pathologist [facility] Implantable Pulse Generator Type Defibrillator IDCO Implantable Pulse Generator Model A219 IDCO Implantable Pulse Generator Serial Number [id number] IDCO Implantable Pulse Generator Taco Maker Dinglepharb IDCO Implantable Pulse Generator Implant Date [id number] IDCO Date Time Interrogation Session IDCO Type Interrogation Session Remote Patient Initiated IDCO Clinic Name [facility] IDCO Battery Date Time of Measurements [...] Model 3501 IDCO Implantable Lead Serial Number [id number] IDCO Implantable Lead Taco Maker [employer] IDCO Implantable Lead Location Other IDCO Implantable Lead Location Detail 1 Subcutaneous IDCO Anatomical Region Laterality Modality Other 01/15/2022 7:32 AM EDT Physician Cardiology IMPLANTABLE CARD IAC DEVICE documented in this encounter Visit Diagnoses Not on filedocumented in this encounter Care Teams Manager Forms Relationship Specialty Start Date End Date Kenia Lawrence APRN [address] [place] [address] PCP - General Family Medicine 10/10/21 05/20/22 documented as of this encounter
--- OUTSIDE RECORDS SUMMARY | 2024-09-20 11:08 | XMS_ITS | Encounter Summary ---
Author Organization [facility] Address [facility] [place] [address] Care Team Providers Care Box Spring Frame Builder Name Role Phone Kenia Lawrence ADRIAN Primary Care Provider +1- [phone] Encounter Details Date Type Department Care Team (Late st Contact Info) Description 01/15/2022 Orders Only Cardiology at [address] [address] Social History Tobacco Use Types [...] AM EST Routine Obstetrics [place] [address] Emili Cabrera MD [facility] [place] [address] 09/26/2024 6:[address] [facility] [place] [address] 10/16/2024 Hospital [place] [address] Dudley Aguilar MD [facility] DR OBSTETRICS AND GYNECOLOGY [place] [id number] 11/08/2024 10:00 AM EST Hospital Encounter [place] [address] Arrived documented as of this encounter Procedures Procedure Name Priority Date/Time Associated Diagnosis Comments CARDIAC DEVICE CHECK - REMOTE PATIENT INITIATED Routine 01/15/2022 7:27 AM EDT documented in this encounter Results * Cardiac device check - Remote Patient Initiated (01/15/2022 7:27 AM EDT) Pathologist [facility] Implantable Pulse Generator Type Defibrillator IDCO Implantable Pulse Generator Model A219 IDCO Implantable Pulse Generator Serial Number [id number] IDCO Implantable Pulse Generator Drift Miner Captimo IDCO Implantable Pulse Generator Implant Date [id number] IDCO Date Time Interrogation Session IDCO Type Interrogation Session Remote Patient Initiated IDCO Clinic Name [facility] IDCO Battery Date Time of Measurements IDCO [...] Model 3501 IDCO Implantable Lead Serial Number [id number] IDCO Implantable Lead Drift Miner [employer] IDCO Implantable Lead Location Other IDCO Implantable Lead Location Detail 1 Subcutaneous IDCO Anatomical Region Laterality Modality Other 01/15/2022 7:27 AM EDT Physician Cardiology IMPLANTABLE CARD IAC DEVICE documented in this encounter Visit Diagnoses Not on filedocumented in this encounter Care Teams Box Spring Frame Builder Relationship Specialty Start Date End Date Kenia Lawrence APRN [address] [place] [address] PCP - General Family Medicine 10/10/21 05/20/22 documented as of this encounter
--- OUTSIDE RECORDS SUMMARY | 2024-09-20 11:08 | XMS_ITS | Encounter Summary ---
Author Organization [facility] [place] [address] Care Team Providers Care Fireperson Name Role Phone MelindaKenia ford ADRIAN Primary Care Provider +1- [phone] Encounter Details Date Type Department Care Team (Late st Contact Info) Description 01/14/2022 Telephone Obstetrics [place] [address] Carey Ibarra RN Social History Tobacco Use [...] Telephone Encounter - Carey Ibarra RN - 01/14/2022 2:42 PM EDT 2nd attempt- no answer * Telephone Encounter - Carey Ibarra RN - 01/14/2022 9:23 AM EDT Attempted to call Aniya A Ene, : 1985, GA: 9w4d to check in on yeast infection, see triage note from yesterday for further details. LVM for callback Assess yeast vs UTI documented in this encounter Plan of Treatment Upcoming Encounters Date Type Department Care Team (Late st Contact Info) Description 09/21/2024 8:15 AM EST Routine Obstetrics [place] [address] [facility] [place]ERNAL [place] [address] 09/26/2024 6:00 PM EST [facility] [place] [address] 10/16/2024 Hospital [place] [address] [facility] DR OBSTETRICS [place] [address] 11/08/2024 10:00 AM EST Hospital Encounter Non-Invasive [place] [address] Arrived documented as of this encounter Visit Diagnoses Not on filedocumented in this encounter Care Teams Fireperson Relationship Specialty Start Date End Date Kenia Lawrence APRN [address] [place] [address] PCP - General Family Medicine 10/10/21 05/20/22 documented as of this encounter
--- OUTSIDE RECORDS SUMMARY | 2024-09-20 11:08 | XMS_ITS | Encounter Summary ---
Author Organization [facility] [place] [address] Care Team Providers Care Services Program Manager Name Role Phone Melinda, Ayla Marilin CAMPBELL Primary Care Provider +1- [phone] Encounter Details Date Type Department Care Team (Late st Contact Info) Description 01/29/2022 Telephone Cardiology at [address] [address] Tiffany Moon, RN Social History Tobacco Use [...] Miscellaneous Notes * Telephone Encounter - Tiffany Moon, RN - 01/29/2022 2:34 PM EDT RTC to Mrs Luque regarding her message stating she would like a call back from Dr Zurita. Mrs Luque is distressed regarding her state during a high risk , as she states she is being told different things, at differing times regarding whether to terminate this 4 , by the January, or to carry her baby to full term. She states she experiences chest pain, and takes Nitroglycerin SL. Forwarding to her provider. Tiffany Moon (Jodie) RN, BSN Cardiology Ambulatory Clinic * Telephone Encounter - Tiffany Moon RN - 01/29/2022 12:57 PM EDT RTC to Mrs Luque as she left a message requesting to ask Dr Zurita a question. VM message with return telephone number for [facility] Cardiology team RN, left for Mrs Luque. Tiffany Moon RN (Jodie), BSN Cardiology Ambulatory Clinic documented in this encounter Plan of Treatment Upcoming Encounters Date Type Department Care Team (Late st Contact Info) Description 09/21/2024 8:15 AM EST Routine Obstetrics [place] [address] Emili Cabrera MD [facility] DR MATERNAL [place] [address] 09/26/2024 6:00 PM EST Appointment [facility] [place] [address] 10/16/2024 [place] [address] Dudley Aguilar MD [facility] DR OBSTETRICS [place] [address] 11/08/2024 10:00 AM EST Hospital Encounter Non-[place]vasive [place] [address] Arrived documented as of this encounter Visit Diagnoses Not on filedocumented in this encounter Care Teams Services Program Manager Relationship Specialty Start Date End Date Kenia Lawrence APRN [address] [place] [address] PCP - General Family Medicine 10/10/21 05/20/22 documented as of this encounter
--- OUTSIDE RECORDS SUMMARY | 2024-09-20 11:08 | XMS_ITS | Encounter Summary ---
Author Organization [place] [address] Care Team Providers Care Biomedical Engineering Technologist Name Role Phone MelindaKenia ford ADRIAN Primary Care Provider +1- [phone] Encounter Details Date Type Department Care Team (Late st Contact Info) Description 01/15/2022 Telephone Cardiology at [address] [address] Lori Bejarano, RN Social History Tobacco Use Types Packs/Day [...] encounter Miscellaneous Notes * Telephone Encounter - Lori Bejarano RN - 01/15/2022 10:23 AM EDT Calling pt in regards to VM documentation from Shereen Tilley Pt reports aching of L sided SQ ICD site as well as green draining oozing from chest electrode incision sites. SQ ICD was placed on 11/12/21 Pt states she looked at the chest incision site & it looked bubbled up so she pushed on it & green drainage oozed out. She just noticed this today Encouraged patient to be seen today - states she does not have a car available (her significant other is using it for work & that she cannot contact him due to poor cell road repairer where he works) She plans on calling other contacts to see if they can transport her to [facility] today for OV. However,she will be at [facility] tomorrow for OBGYN appt & will be seen tomorrow if unable to be transportedhere today. Discussed the above with Jesus Wayne PA-C who was agreeable with plan documented in this encounter Plan of Treatment Upcoming Encounters Date Type Department Care Team (Late st Contact Info) Description 09/21/2024 8:15 AM EST Routine Obstetrics [place] [address] Emili Cabrera MD [facility] [address] [place] [address] 09/26/2024 6:00 PM EST Appointment [facility] [place] [address] 10/16/2024 [place] [address] Dudley Aguilar MD [facility] DR OBSTETRICS [place] [address] 11/08/2024 10:00 AM EST Hospital Encounter Non-Invasive [place] [address] Arrived documented as of this encounter Visit Diagnoses Not on filedocumented in this encounter Care Teams Biomedical Engineering Technologist Relationship Specialty Start Date End Date Kenia Lawrence APRN [address] [place] [address] PCP - General Family Medicine 10/10/21 05/20/22 documented as of this encounter
--- OUTSIDE RECORDS SUMMARY | 2024-09-20 11:08 | XMS_ITS | Encounter Summary ---
Author Organization [facility] Address [facility] [place] [address] Care Team Providers Care Director Online Marketing Name Role Phone MelindaKenia ford ADRIAN Primary Care Provider +1- [phone] Encounter Details Date Type Department Care Team (Late st Contact Info) Description 01/13/2022 Telephone Obstetrics [place] [address] Melonie Ballesteros MD [facility] DR OBSTETRICS & [place] [address] Social History Tobacco Use Types Packs/Day Years [...] encounter Miscellaneous Notes * Telephone Encounter - Melonie Ballesteros MD - 01/13/2022 1:43 PM EDT Aniya Luque is a 36 y.o. 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 No vaginal bleeding, no cramping. Some low back discomfort. She does endorse some dysuria but she feels like it is on the outside. No bladder pain, no hematuria, no suprapubic pain. I recommended she start PV Monistat x7 days tonight for a suspected yeast infection, and let her know I would have the MFM RN call her tomorrow to see if she is improving, and see if she needs to come in for an appointment/consideration of urinalysis. She is in agreement. We reviewed reasons to call including fever, chills, heavy vaginal bleeding. Melonie Ballesteros MD PGY-3 01/13/2022 documented in this encounter Plan of Treatment Upcoming Encounters Date Type Department Care Team (Late st Contact Info) Description 09/21/2024 8:15 AM EST Routine Obstetrics [place] [address] Emili Cabrera MD [facility] [place] [address] 09/26/2024 6:00 PM EST Appointment [facility] [place] [address] 10/16/2024 [place] [address] Dudley Aguilar MD [facility] DR OBSTETRICS [place] [address] 11/08/2024 10:00 AM EST Hospital Encounter Non[place] [address] Arrived documented as of this encounter Visit Diagnoses Not on filedocumented in this encounter Care Teams Director Online Marketing Relationship Specialty Start Date End Date Kenia Lawrence, ADRIAN [address] [place] [address] PCP - General Family Medicine 10/10/21 05/20/22 documented as of this encounter
--- OUTSIDE RECORDS SUMMARY | 2024-09-20 11:08 | XMS_ITS | Encounter Summary ---
Author Organization [facility] [place] [address] Care Team Providers Care Children'S Minister Name Role Phone MelindaKenia ford ADRIAN Primary Care Provider +1- [phone] Encounter Details Date Type Department Care Team (Late st Contact Info) Description 01/10/2022 Telephone Obstetrics [place] [address] Alla Weinberg RN Social History Tobacco Use [...] Telephone Encounter - Alla Weinberg RN - 01/10/2022 9:46 AM EDT Returning call to Aniya Luque Reason for call: Aniya is calling today c/o pain above her left hip, needs assistance to get up from bed due to the pain. Reports pain level 8/10, feels like the pain is radiating across her abdomen, becoming more diffuse. States she has had several bowel movements and does not believe it is bowel related. Reports very nauseous, denies vomiting. Reports continues to have increased creamy/white vaginal discharge. Reports bad episode of heart burn yesterday/last night - was trying to get lidocaine solution for her heart burn at clinic near her house yesterday, but provider would not prescribe - needs okay fromOB provider. Reports mild SOB at this time. States her fiayanna has been wanting to take her to the ED for evaluation due to increasing pain level. We discussed that is not unreasonable, discussed with patient and fiance at the same time that given increasing pain level that does not seem to be related, it would be best for Aniya to be evaluated in the ED. Bel Root states he will take her to the ED at [facility] when ourcall ends. Advised to call for any need. * Telephone Encounter - Alla Weinberg RN - 01/10/2022 9:45 AM EDT ----- Message from Britany Andrade sent at 01/10/2022 8:44 AM EDT ----- Regarding: Call Back Caller's name: Aniya Luque Call back #: [phone] Patient's provider/team: PHYLICIA Reason for call: When asked what it was in regards to, patient replied same thing I have been talking to them with everyday documented in this encounter Plan of Treatment Upcoming Encounters Date Type Department Care Team (Late st Contact Info) Description 09/21/2024 8:15 AM EST Routine Obstetrics [place] [address] Emili Cabrera MD [facility] [place] [address] 09/26/2024 6:00 PM EST Appointment [facility] [place] [address] 10/16/2024 Hospital [place] [address] Dudley Aguilar MD [facility] DR OBSTETRICS [place] [address] 11/08/2024 10:00 AM EST Hospital Encounter Non-[place] [address] Arrived documented as of this encounter Visit Diagnoses Not on filedocumented in this encounter Care Teams Children'S Minister Relationship Specialty Start Date End Date Kenia Lawrence APRN [address] [place] [address] PCP - General Family Medicine 10/10/21 05/20/22 documented as of this encounter
--- OUTSIDE RECORDS SUMMARY | 2024-09-20 11:08 | XMS_ITS | Encounter Summary ---
Author Organization [facility] Address [facility] [place] [address] Care Team Providers Care Accounts Receivable Manager Name Role Phone MelindaKenia ford ADRIAN Primary Care Provider +1- [phone] Encounter Details Date Type Department Care Team (Late st Contact Info) Description 01/16/2022 2:30 PM EDT Routine Obstetrics [place] [address] Kaila Castellanos MD [facility] [address] OBSTETRICS [place] [address] GA: [id number] Social History Tobacco Use Types Packs/Day Years [...] Sign Reading Time Taken Comments Blood Pressure 124/72 01/16/2022 2:35 PM EDT Pulse - - Temperature - - Respiratory Rate - - Oxygen Saturation - - Inhaled Oxygen Concentration - - Weight 72.6 kg (160 lb 1.6 oz) 01/16/2022 2:35 P M EDT Height - - Body Mass Index 26.64 01/15/2022 3:19 PM EDT documented in this encounter Progress Notes * Kaila Castellanos MD - 01/16/2022 2:30 PM EDT Here for f/u US. US viable IUP 9 6/7 weeks. Has not decided about termination wants to hear FHR andknow gender. Plans Panorama today. Bedside US used for PW Doppler and patient recorded FHR. Understands poses a risk to her health and life given her recent cardiac events. Has 3 children at home. Has sensation of palpitations but ICD has not fired. No LOC or syncope. Has some chest aching and was seen by cardiology yesterday to evaluate for subcutaneous infection which was assessed to be skin pimple. F/u 2 weeks as Panorama will be resulted. documented in this encounter Plan of Treatment Upcoming Encounters Date Type Department Care Team (Late st Contact Info) Description 09/21/2024 8:15 AM EST Routine Obstetrics [place] [phone] Emili Cabrera MD [facility] [place] [address] 09/26/2024 6:00 PM EST Appointment [facility] [place] [phone] 10/16/2024 Hospital [place] [address] Dudley Aguilar MD [facility] OBSTETRICS [place] [address] 11/08/2024 10:00 AM EST Hospital Encounter Non-[place] [phone] Arrived documented as of this encounter Procedures Procedure Name Priority Date/Time Associated Diagnosis Comments URINALYSIS WITH REFLEX CULTURE Routine 01/16/2022 2:30 PM EDT Supervision of high risk in first trimester documented in this encounter Results * Urinalysis with reflex Culture (01/16/2022 2:30 PM EDT) Glucose, Urine Dipstick Negative Negative mg/dL [facility] Protein, Urine Dipstick Negative Negative mg/dL [facility] Bilirubin, Urine Dipstick Negative Negative mg/dL [facility] Comment: Clinical correlation required for positive Urine Bilirubin results as false positive may occur with some drugs and drug related products. If a false positive is suspected a serum total bilirubin should be considered if clinically indicated. Urobilinogen, Urine Dipstick Normal Normal mg/dL [facility] pH, Urn (dipstick) 6.0 5.0 - 8.0 [facility] Blood, Urine Dipstick Negative Negative mg/dL [facility] Ketone, Urine Dipstick Negative Negative mg/dL [facility] Nitrite, Urine Dipstick Negative Negative [facility] Leukocytes, Urine Dipstick Negative Negative [facility] Appearance, Urine Dipstick Clear Clear [facility] Specific [place] Urine Automated 1.013 1.005 - 1.030 [facility] Color, Urine Dipstick Yellow Yellow [facility] Reflex to Culture No [facility] Urine 01/16/2022 2:30 PM EDT 01/16/2022 3:32 PM EDT Narrative Resulting Agency Comment Spec In Lab Kaila Castellanos MD URINE ORDERABLES [facility] [place] [address] documented in this encounter Visit Diagnoses Diagnosis Supervision of high risk in first trimester Unspecified high-risk documented in this encounter Care Teams Accounts Receivable Manager Relationship Specialty Start Date End Date Kenia Lawrence APRN [address] [place] [address] PCP - General Family Medicine 10/10/21 05/20/22 documented as of this encounter
--- OUTSIDE RECORDS SUMMARY | 2024-09-20 11:08 | XMS_ITS | Encounter Summary ---
Author Organization [facility] Address [facility] [place] [address] Care Team Providers Care Cnc Service Engineer Name Role Phone MelindaKenia ford ADRIAN Primary Care Provider +1- [phone] Encounter Details Date Type Department Care Team (Latest Contact Info) Description 01/15/2022 3:00 PM EDT Office Visit Cardiology at [address] [address] Jesus Wayne PA [facility] [place] [address] Subcutaneous defibrillator implanted 11/12/2019 Social History Tobacco [...] Reading Time Taken Comments Blood Pressure 116/76 01/15/2022 3:19 PM EDT Pulse 83 01/15/2022 3:19 PM EDT Temperature 37 ??C (98.6 ??F) 01/15/2022 3:19 PM EDT Respiratory Rate - - Oxygen Saturation 100% 01/15/2022 3:19 PM EDT Inhaled Oxygen Concentration - - Weight 72.8 kg (160 lb 9.6 oz) 01/15/2022 3:19 P M EDT Height 165.1 cm (5' 5) 01/15/2022 3:19 PM EDT R eported Body Mass Index 26.73 01/15/2022 3:19 PM EDT documented in this encounter Progress Notes * Jesus Wayne PA - 01/15/2022 3:00 PM EDT Cardiac Electrophysiology Clinic Note Patient: Aniya Luque : 1985 Brief HPI: Aniya Chanel is a 36 year old female with a PMH significant for 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 She reports that she looked at the chest incision site & it looked bubbled up so she pushed on it & green drainage oozed out. She just noticed this today She also reported having had recent fevers of 100.2 over the weekend. She presents today with normal temperature and some pain/tenderness at the scar over her xyphoid. She also describes fatigue and generalized weakness as well as anxiety. She reports using nitroglycerin about once weekly for chest pain. ROS: Constitutional: + fatigue, - fever, - chills Respiratory: - shortness of breath, - cough, - apnea, - wheezing Cardiovascular: + chest pain, - palpitations, - unusual rates Gastrointestinal: - nausea, - vomiting, - abdominal pain, - diarrhea Neurological: + weakness, - lightheadedness, - dizziness, - syncope, Psychiatric: + anxious Patient Active Problem List Diagnosis ??? Subcutaneous defibrillator implanted 11/12/2019 Pulse generator: Emblem MRI S-ICD Pulse Generator Model A219 Serial Number [id number] Implanted 11/12/21 Ventricular electrode: SQ electrode Model 3501 Bipolar Serial Number [id number] Implanted 11/12/21 ??? Cigarette smoker ??? Coronary [...] to provoke her anxiety. ??? Chest pain ??? Skin disease ??? Anxiety ??? Depression ??? Asthma ??? Hypertension ??? Tachycardia ??? Recurrent major depressive episodes, moderate Medication Sig ??? clonazePAM (KlonoPIN) 1 mg Tablet TAKE ONE TABLET BY MOUTH TWICE A DAY AND ONE-HALF TABLET AT NOON ??? amLODIPine (Norvasc) 10 mg Tablet Take 0.5 tablets by mouth 2 times daily. ??? isosorbide mononitrate CR (Imdur) 30 mg Tablet Sustained Release 24 hr Take 0.5 tablets by mouth daily. ??? Hydrocortisone 0.5 % Lotion Every 12 hours. ??? diclofenac (Voltaren) 1 % Gel APPLY A QUARTER SIZED AMOUNT TO PAINFUL AREA ON CHEST TWO TIMES ADAY FOR 14 DAYS ??? famotidine (Pepcid) 20 mg Tablet Take 1 tablet by mouth 2 times daily (before meals). Substitute with OTC as needed ??? fluticasone propionate (Flonase) 50 mcg/actuation [place], Suspension 1 spray by Each Nare route nightly. Substitute OTC if needed Indications: inflammation of the nose due to an allergy ??? acetaminophen (Tylenol) 500 mg Tablet Take 2 tablets by mouth every 8 hours as needed for Pain.Substitute OTC if needed ??? nitroGLYcerin (Nitrostat) 0.4 mg Tablet, Sublingual Place 1 tablet under the tongue every 5 minutes as needed for Chest pain. ??? clonazePAM (KlonoPIN) 0.5 mg Tablet Take 2 tablets by mouth 2 times daily. ??? vitamin C 500 mg Tablet TAKE [...] Take 1 tablet by mouth as needed. Vitals: Last Set of Vitals and range of vitals over past 24 hours: Last value Range last 24 hrs Temperature Temp: 37 ??C (98.6 ??F) Temp: [37 ??C (98.6 ??F)] Heart Rate Heart Rate: 83 Heart Rate: [83] Blood Pressure BP: 116/76 BP: (116)/(76) SpO2 SpO2: 100 % SpO2: [100 %] Physical Exam: General- No acute distress, sitting comfortably in exam room chair HEENT- Head atraumatic, normocephalic Skin- Warm and dry Cardiovascular- S1/S2 regular rate and rhythm. No murmur, rub or gallop Lungs- Clear to auscultation bilaterally Extremities- Pulses equal bilaterally. No edema noted Neuro- A&Ox3, anxious Assessment & Plan: - 36 year old female status post subcutaneous cardiac defibrillator implanted on November 12 who presents with reported aching of L sided SQ ICD site as well as green draining/oozing from chest electrode incision site. On inspection, both the device pocket and chest lead incision appear very well healed. No erythema or warmth appreciated although she endorsed some tenderness at each site.At the inferior end of the chest scar there was what appears to be a small pimple from which she was able to express a tiny amount of very slightly milky colored pus. There is no indication that there is any subcutaneous infection and her temp was normal. She was instructed to keep the site clean, a nd keep it covered with a guaze bandage for now. She was provided bandages, tape and alcohol wipes and infection signs and symptoms were explained. She will return to clinic if she develops any such signs or symptoms. EDEN White 01/15/2022 Pager: [phone] documented in this encounter Plan of Treatment Upcoming Encounters Date Type Department Care Team (Late st Contact Info) Description 09/21/2024 8:15 AM EST Routine Obstetrics [place] [address] Emili Cabrera MD [facility] [place] [address] 09/26/2024 6:00 PM EST Appointment [facility] [place] [address] 10/16/2024 Hospital [place] [address] Dudley Aguilar MD [facility] DR OBSTETRICS [place] [address] 11/08/2024 10:00 AM EST Hospital Encounter Non-Invasive [place] [phone] Arrived documented as of this encounter Visit Diagnoses Diagnosis Subcutaneous defibrillator implanted 11/12/2019 documented in this encounter Care Teams Cnc Service Engineer Relationship Specialty Start Date End Date Kenia Lawrence APRN [address] [place] [address] PCP - General Family Medicine 10/10/21 05/20/22 documented as of this encounter
--- OUTSIDE RECORDS SUMMARY | 2024-09-20 11:08 | XMS_ITS | Encounter Summary ---
[place] [address] Care Team Providers Care Fence Erector Supervisor Name Role Phone MelindaKenia ford ADRIAN Primary Care Provider +1- [phone] Encounter Details Date Type Department Care Team (Late st Contact Info) Description 01/28/2022 Telephone Cardiology at [address] [id number] Tiffany Moon, RN Social History Tobacco Use [...] Telephone Encounter - Tiffany Moon RN - 01/28/2022 3:14 PM EDT RTC to YINA Baxter, who left a message stating she is in Thoracic Surgery Unit, and calling regarding Aniya Luque. Tiffany Moon (Jodie), RN, BSN Cardiology Ambulatory Clinic documented in this encounter Plan of Treatment Upcoming Encounters Date Type Department Care Team (Late st Contact Info) Description 09/21/2024 8:15 AM EST Routine Obstetrics [place] [address] Emili Cabrera MD [facility] [place] [address] 09/26/2024 6:00 PM EST Appointment [facility] [place] [phone] 10/16/2024 Hospital [place] [address] Dudley Aguilar MD [facility] DR OBST[place] [address] 11/08/2024 10:00 AM EST Hospital Encounter Non-[place]vasive [place] [address] Arrived documented as of this encounter Visit Diagnoses Not on filedocumented in this encounter Care Teams Fence Erector Supervisor Relationship Specialty Start Date End Date Kenia Lawrence APRN [address] [place] [address] PCP - General Family Medicine 10/10/21 05/20/22 documented as of this encounter
--- OUTSIDE RECORDS SUMMARY | 2024-09-20 11:08 | XMS_ITS | Encounter Summary ---
Author Organization [facility] [place] [address] Care Team Providers Care Laundry Press Operator Name Role Phone Kenia Lawrence GAS ENGINE MECHANIC Primary Care Provider +1- [phone] Encounter Details Date Type Department Care Team (Late st Contact Info) Description 01/10/2022 Interpretation Only [address] [address] Michael Lugo MD [address] [place] [address] Social History Tobacco Use Types Packs/Day Years [...] AM EST Routine Obstetrics [place] [address] Emili Cabrera MD [facility] [place] [address] 09/26/2024 6:00 PM EST Appointment [facility] [place] [phone] 10/16/2024 [place] [address] Dudley Aguilar MD [facility] DR OBSTETRICS [place] [address] 11/08/2024 10:00 AM EST Hospital Encounter Non-[place] [phone] Arrived documented as of this encounter Procedures Procedure Name Priority Date/Time Associated Diagnosis Comments US TRANSVAGINAL NON OB STAT 01/10/2022 12:36 PM EDT documented in this encounter Results * US Transvaginal Non OB (01/10/2022 12:36 PM EDT) PT CLASS E RAD ADMITDTTM RAD PT RAD INFO [id number]^F INDLEY^ROXANNA MOELLER RAD EXAM DESC UTV^US TRANSVAGINAL ^RIS RAD Anatomical Region Laterality Modality Ultrasound Impressions 01/10/2022 1:06 PM EDT Viable IUP. A small subchorionic hematoma. High cardiac rate of 189, consider repeat ultrasound in one week. Thank you for letting us participate in the care of this patient. ??If you are a health care provider and have any questions regarding this report, please contact the number below. ??For patients who have questions please contact the health primary health care nurse that requested your imaging first. ? Electronically signed by: Luis F Valladares MD, [facility] ([phone]), at 01/10/2022 1:06 PM Narrative 01/10/2022 1:06 PM EDT EXAMINATION: US TRANSVAGINAL CLINICAL HISTORY: + , abdominal pain, new vaginal discharge COMPARISON: December 06, 2021 FINDINGS: There is a single live intrauterine gestation. Heart rate is 189 beats per min. Too early for morphology evaluation. The ovaries appear normal. There is a small subchorionic hemorrhage. biometry: CRL: ??2.1 Cm. ??8 W ??3 D Estimated date of delivery based in 1st trimester ultrasound: August 19, 2022 Procedure Note Luis F Valladares MD - 01/10/2022 EXAMINATION: US TRANSVAGINAL CLINICAL HISTORY: + , abdominal pain, new vaginal discharge COMPARISON: December 06, 2021 FINDINGS: There is a single live intrauterine gestation. Heart rate is 189 beats permin. Too early for morphology evaluation. The ovaries appear normal.There is a small subchorionic hemorrhage. biometry: CRL: 2.1 Cm. 8 W 3 D Estimated date of delivery based in 1st trimester ultrasound: July IMPRESSION Viable IUP. A small subchorionic hematoma. High cardiac rate of 189, consider repeat ultrasound in one week. Thank you for letting us participate in the care of this patient. If youare a health care provider and have any questions regarding this report,please contact the number below. For patients who have questions please contactthe health primary health care nurse that requested your imaging first. Electronically signed by: Luis F Valladares MD, [facility]([phone]), at 01/10/2022 1:06 PM Michael uLgo MD IMG US PELVIC O RDERABLES documented in this encounter Visit Diagnoses Not on filedocumented in this encounter Care Teams Laundry Press Operator Relationship Specialty Start Date End Date Kenia Lawrence APRN [address] [place] [address] PCP - General Family Medicine 10/10/21 05/20/22 documented as of this encounter
--- OUTSIDE RECORDS SUMMARY | 2024-09-20 11:08 | XMS_ITS | Encounter Summary ---
Author Organization [facility] [place] [address] Care Team Providers Care Miter Sawyer Name Role Phone MelindaKenia ford ADRIAN Primary Care Provider +1- [phone] Encounter Details Date Type Department Care Team (Late st Contact Info) Description 01/10/2022 Telephone Obstetrics [place] [phone] Alla Weinberg RN Social History Tobacco Use [...] Encounter - Alla Weinberg RN - 01/10/2022 2:30 PM EDT Aniya Brian Luque calling in, states that she went to the ED at [facility] today as she said she would for her increasing left-sided abdominal pain . She had an US there today and some concerns about what the doctor there told her about the US; alsostates that [facility] is requesting orders to do another US there in one week to follow up, as it is a financial hardship for Aniya to travel all the way down here so often. Or if M team thinks she should be seen at [facility] she will do that, but would prefer to have any needed testing at this time at [facility] if possible because it is only 10 minutes. If she doesn't need to come down, she would like TH visit with Dr. Oliveira (specifically requested Dr. Oliveira) to review the US results from [facility]. I let her know that I would review her concerns with the covering [facility] provider and get back to her as soon as possible with a plan. She is agreeable to this. Note routed to [facility] provider for review. documented in this encounter Plan of Treatment Upcoming Encounters Date Type Department Care Team (Late st Contact Info) Description 09/21/2024 8:15 AM EST Routine Obstetrics [place] [address] Emili Cabrera MD [facility] [address] MATERNAL [place] [address] 09/26/2024 6:00 PM EST Appointment [facility] [place] [address] 10/16/2024 [place] [address] Dudley Aguilar MD [facility] DR OBSTETRICS AND [place] [address] 11/08/2024 10:00 AM EST Hospital Encounter Non-[place] [address] Arrived documented as of this encounter Visit Diagnoses Not on filedocumented in this encounter Care Teams Miter Sawyer Relationship Specialty Start Date End Date Kenia Lawrence APRN [address] [place] [address] PCP - General Family Medicine 10/10/21 05/20/22 documented as of this encounter
--- OUTSIDE RECORDS SUMMARY | 2024-09-20 11:08 | XMS_ITS | Encounter Summary ---
Author Organization [facility] [place] [address] Care Team Providers Care Account Assistant Name Role Phone Kenia Lawrence APRN Primary Care Provider +1- [phone] Encounter Details Date Type Department Care Team (Late st Contact Info) Description 01/09/2022 External Results Obstetrics [place] [phone] Alla Weinberg, RN Social History Tobacco Use Types Packs/Day [...] AM EST Routine Obstetrics [place] [phone] Emili Cabrera MD [facility] MATERNAL [place] [address] 09/26/2024 6:00 PM EST Appointment [facility] [place] [phone] 10/16/2024 Hospital [place] [address] Dudley Aguilar MD [facility] DR OBSTETRICS [place] [address] 11/08/2024 10:00 AM EST Hospital Encounter Non-[place] [address] Arrived documented as of this encounter Procedures Procedure Name Priority Date/Time Associated Diagnosis Comments BETA HCG, QUANTITATIVE Routine 01/07/2022 documented in this encounter Results * Beta HCG, quantitative (01/07/2022) Beta Human Chorionic Gonadotropin, Quantitative 102,965 Blood 01/07/2022 Historical Provider CHEMISTRY ORDERAB LES documented in this encounter Visit Diagnoses Not on filedocumented in this encounter Care Teams Account Assistant Relationship Specialty Start Date End Date Kenia Lawrence APRN [address] [place] [address] PCP - General Family Medicine 10/10/21 05/20/22 documented as of this encounter
--- OUTSIDE RECORDS SUMMARY | 2024-09-20 11:08 | XMS_ITS | Encounter Summary ---
Author Organization [facility] [place] [address] Care Team Providers Care Chief Reservoir Engineering Name Role Phone Melinda, Kenia Marilin CAMPBELL Primary Care Provider +1- [phone] Reason for Referral * Diagnostic Test (Routine) - Closed Specialty Diagnoses / Procedures Referred By Contac t Referred To Contact Radiology Diagnoses Angina pectoris with documented spasm Procedures CT Angiogram Coronary Arteries Ej Zurita MD [facility] [place] [address] [facility] [place] [address] Referral ID Status Reason Start Date Expiration Date V isits Requested Visits Authorized [id number] Closed Specialty Service Requested 01/01/2022 07/04/2023 1 1 Reason for Visit * Diagnostic Test (Routine) - Closed Specialty Diagnoses / Procedures Referred By Contac t Referred To Contact Radiology Diagnoses Angina pectoris with documented spasm Procedures CT Angiogram Coronary Arteries Ej Zurita MD [facility] [place] [address] [facility] [place] [address] Referral ID Status Reason Start Date Expiration Date V isits Requested Visits Authorized [id number] Closed Specialty Service Requested 01/01/2022 07/04/2023 1 1 Encounter Details Date Type Department Care Team (Late st Contact Info) Description 01/23/2022 10:45 AM EDT - 01/23/2022 11:59 PM EDT Hospital En[facility] CT [facility] [place] [address] Ej Zurita MD [facility] [address] Angina pectoris with documented spasm Discharge Disposition: [...] End Date fluticasone propionate (Flonase) 50 mcg/actuation Gordon, SuspensionIndications: allergic rhinitis 1 spray by Each [...] for Chest pain. 30 tablet 11/14/2021 07/09/2022 clonazePAM (KlonoPIN) 0.5 mg Tablet Take 2 tablets by mouth 2 times daily. 60 tablet 11/14/2021 02/13/2022 vitamin C 500 mg Tablet TAKE ONE TABLET BY MOUTH EVERY DAY 08/24/2021 08/12/2023 mag/aluminum/sod bicarb/alginc (GAVISCON ORAL) Take by mouth. 07/25/2022 pantoprazole EC (Protonix) 40 mg Tablet, Delayed Release (E.C.) Take 40 mg by mouth daily. 02/13/2022 sucralfate (Carafate) 1 gram Tablet TAKE 1 TABLET BY MOUTH TWICE DAILY ON AN EMPTY STOMACH 10/11/2020 08/12/2023 diphenhydrAMINE/alumin um-magnesium hydroxide with simethicone/lidocaine (BMX) (6.67 mg-0.83 mg-13.33 mg-1.33 mg/mL) oral liquid Take by mouth. 022 prazosin (MINIPRESS) 1 mg Capsule Take 1 mg by mouth 3 times daily. 02/13/2022 documented as of this encounter Plan of Treatment Upcoming Encounters Date Type Department Care Team (Late st Contact Info) Description 09/21/2024 8:15 AM EST Routine Obstetrics [place] [address] Emili Cabrera MD [facility] [place] [address] 09/26/2024 6:00 PM EST Appointment [facility] [place] [address] 10/16/2024 Hospital [place] [address] Dudley Aguilar MD [facility] OBSTETRICS [place] [address] 11/08/2024 10:00 AM EST Hospital Encounter Non[place] [address] Arrived documented as of this encounter Procedures Procedure Name Priority Date/Time Associated Diagnosis Comments CT ANGIOGRAM CORONARY ARTERIES Routine 01/23/2022 12:37 PM EDT Angina pectoris with documented spasm documented in this encounter Results * CT Angiogram Coronary Arteries (01/23/2022 12:37 PM EDT) Anatomical Region Laterality Modality Cardiac Computed Tomogra phy 01/23/2022 12:1 9 PM EDT Impressions 01/23/2022 1:43 PM EDT Coronary calcium score of 11, consistent with mild atherosclerotic plaque burden and >95%-ile rank based on age, race/ethnicity, and gender. Presence of calcified atherosclerotic plaque is notable considering the patient's young age and gender. Right dominant coronary circulation. Normal origin of the coronary arteries. Small calcified foci of atherosclerotic plaque in the left anterior descending and right coronary artery with luminal narrowing by less than 25%. CAD RADS 1 Also, no evidence of abnormal narrowing otherwise. No coronary artery aneurysm. Defibrillator lead overlying the sternum. Prominent caliber of the main pulmonary artery can be an indirect sign of pulmonary arterial hypertension. Thank you for letting us participate in the care of this patient. ??If you are a health care provider and have any questions regarding this report, please contact the number below. ??For patients who have questions please contact the health care manager that requested your imaging first. ? Narrative 01/23/2022 1:43 PM EDT EXAMINATION: CT ANGIOGRAM CORONARY ARTERIES CLINICAL HISTORY: CAD suspected, abnormal EST < 2yrs ? artery blockage COMPARISON: Chest CT 11/04/2021 TECHNIQUE: 3 mm thick axial contiguous sections through the heart were obtained via ECG-gated axial mode acquisition without intravenous contrast. After time bolus, 0.625 mm thick axial contiguous sections were obtained through the heart via ECG-gated helical acquisition during intravenous administration of 96 cc Omnipaque 350. Post-processing was performed on an independent computer workstation including curved multiplanar reformats, coronary calcium scoring, and 3D reconstructions. FINDINGS: Coronary calcium score: Left main: ??Agatston score: 0; Volume score: 0; Mass: 0 mg Left anterior descending: ??Agatston score: 3; Volume score: 10; Mass: 1.45 mg Left circumflex: ??Agatston score: 0; Volume score: 0; Mass: 0 mg Right coronary: ??Agatston score: 8; Volume score: 14; Mass: 2.44 mg TOTAL: ??Agatston score: 11; Volume score: 24; Mass: 3.89 mg Atherosclerotic plaque burden, based on Agatston score: Mild Percentile rank, based on age, race/ethnicity, and gender: >95%-ile (patient is too young for the standardized age range of the calcium score calculator). Reference: Kael RL, Oswaldo H, Juliana R, et al. ??Distribution of coronary artery calcium by race, gender, and age: results from the Multi-Ethnic Study of Atherosclerosis (ELMORE). Circulation. 2006;113(1):30-37. Coronary arteries: Right dominant coronary circulation. Left main: No demonstrable plaque or stenosis. Normal origin. Short vessel. Left anterior descendin foci of eccentric calcified atherosclerotic plaque are seen in the proximal LAD with luminal narrowing of less than 25%. Diagonal branches: No demonstrable plaque or stenosis. Left Circumflex: No demonstrable plaque or stenosis. Caliber distal to the origin of the first obtuse marginal is small. Obtuse marginal branches: No demonstrable plaque or stenosis. Right coronary: 2 small foci of calcified atherosclerotic plaques in the proximal and mid right coronary artery. Luminal narrowing is less than 25%. Origin is normal. Posterior descending: No demonstrable plaque or stenosis. Posterolateral branch: No demonstrable plaque or stenosis. Cardiac chambers: Defibrillator lead overlying the sternum in the midline. Great vessels: Enlarged caliber of the main pulmonary artery measures 31 mm. Pulmonary parenchyma, airways, pleura: No significant findings. Upper abdomen: No significant findings Skeletal Structures: No significant findings. Procedure Note Elena Toussaint MD - 01/23/2022 EXAMINATION: CT ANGIOGRAM CORONARY ARTERIES CLINICAL HISTORY: CAD suspected, abnormal EST < 2yrs ? artery blockage COMPARISON: Chest CT 11/04/2021 TECHNIQUE: 3 mm thick axial contiguous sections through the heart wereobtained via ECG-gated axial mode acquisition without intravenous contrast. Aftertime bolus, 0.625 mm thick axial contiguous sections were obtained through theheart via ECG-gated helical acquisition during intravenous administration of 96cc Omnipaque 350. Post-processing was performed on an independent computer workstation including curved multiplanar reformats, coronary calciumscoring, and 3D reconstructions. FINDINGS: Coronary calcium score: Left main: Agatston score: 0; Volume score: 0; Mass: 0 mg Left anterior descending: Agatston score: 3; Volume score: 10; Mass: 1.45mg Left circumflex: Agatston score: 0; Volume score: 0; Mass: 0 mg Right coronary: Agatston score: 8; Volume score: 14; Mass: 2.44 mg TOTAL: Agatston score: 11; Volume score: 24; Mass: 3.89 mg Atherosclerotic plaque burden, based on Agatston score: Mild Percentile rank, based on age, race/ethnicity, and gender: >95%-ile(patient is too young for the standardized age range of the calcium scorecalculator). Reference: Kael RL, Chacon H, Juliana R, et al. ??Distribution ofcoronary artery calcium by race, gender, and age: results from the Multi-EthnicStudy of Atherosclerosis (ELMORE). Circulation. 2006;113(1):30-37. Coronary arteries: Right dominant coronary circulation. Left main: No demonstrable plaque or stenosis. Normal origin. Shortvessel. Left anterior descendin foci of eccentric calcified atheroscleroticplaque are seen in the proximal LAD with luminal narrowing of less than 25%. Diagonal branches: No demonstrable plaque or stenosis. Left Circumflex: No demonstrable plaque or stenosis. Caliber distal tothe origin of the first obtuse marginal is small. Obtuse marginal branches: No demonstrable plaque or stenosis. Right coronary: 2 small foci of calcified atherosclerotic plaques in the proximal and mid right coronary artery. Luminal narrowing is less than25%. Origin is normal. Posterior descending: No demonstrable plaque or stenosis. Posterolateral branch: No demonstrable plaque or stenosis. Cardiac chambers: Defibrillator lead overlying the sternum in themidline. Great vessels: Enlarged caliber of the main pulmonary artery measures 31mm. Pulmonary parenchyma, airways, pleura: No significant findings. Upper abdomen: No significant findings Skeletal Structures: No significant findings. IMPRESSION Coronary calcium score of 11, consistent with mild atherosclerotic plaqueburden and >95%-ile rank based on age, race/ethnicity, and gender. Presence of calcified atherosclerotic plaque is notable considering the patient's young age and gender. Right dominant coronary circulation. Normal origin of the coronaryarteries. Small calcified foci of atherosclerotic plaque in the left anteriordescending and right coronary artery with luminal narrowing by less than 25%. CAD RADS 1 Also, no evidence of abnormal narrowing otherwise. No coronary arteryaneurysm. Defibrillator lead overlying the sternum. Prominent caliber of the main pulmonary artery can be an indirect signof pulmonary arterial hypertension. Thank you for letting us participate in the care of this patient. If youare a health care provider and have any questions regarding this report,please contact the number below. For patients who have questions please contactthe health care manager that requested your imaging first. 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 documented in this encounter Administered Medications Inactive Administered Medications - up to 3 most recent administrations Medication Order MAR Action Action Date Dose Rate Site iohexoL (Omnipaque) (350 mg/mL) solution 0-200 mL 0-200 mL, Intravenous, ONCE PRN, 1 dose, Starting on Fri01/23/22 at 1102, Until Fri01/23/22 at 1238, Per Protocol, Warning Vesicant/Irritant Medication , Radiology Contrast, Routine Given 01/23/2022 12:38 PM EDT 96 mLs documented in this encounter Care Teams Chief Reservoir Engineering Relationship Specialty Start Date End Date Kenia Lawrence APRN [address] [place] [address] PCP - General Family Medicine 10/10/21 05/20/22 documented as of this encounter
--- OUTSIDE RECORDS SUMMARY | 2024-09-20 11:08 | XMS_ITS | Encounter Summary ---
Author Organization [facility] [place] [address] Care Team Providers Care Financial Sales Advisor Name Role Phone Kenia Lawrenec APRN Primary Care Provider +1- [phone] Encounter Details Date Type Department Care Team (Late st Contact Info) Description 01/03/2022 External Results Obstetrics [place] [phone] Carey Ibarra, RN Social History Tobacco Use Types Packs/Day [...] AM EST Routine Obstetrics [place] [phone] Emili Cabrera MD [facility] [place] [address] 09/26/2024 6:[address] [facility] [place] [phone] 10/16/2024 [place] [address] Dudley Aguilar MD [facility] DR OBSTET[place] [address] 11/08/2024 10:00 AM EST Hospital Encounter Non-Invasive [place] [address] Arrived documented as of this encounter Procedures Procedure Name Priority Date/Time Associated Diagnosis Comments BETA HCG, QUANTITATIVE Routine 12/29/2021 documented in this encounter Results * Beta HCG, quantitative (12/29/2021) Beta Human Chorionic Gonadotropin, Quantitative 55,162 Blood 12/29/2021 Historical Provider CHEMISTRY ORDERAB LES documented in this encounter Visit Diagnoses Not on filedocumented in this encounter Care Teams Financial Sales Advisor Relationship Specialty Start Date End Date Kenia Lwarence APRN [address] [place] [address] PCP - General Family Medicine 10/10/21 05/20/22 documented as of this encounter
--- OUTSIDE RECORDS SUMMARY | 2024-09-20 11:08 | XMS_ITS | Encounter Summary ---
Author [facility] [place] [address] Care Team Providers Care Portfolio Assistant Name Role Phone MelindaKenia ford ADRIAN Primary Care Provider +1- [phone] Encounter Details Date Type Department Care Team (Late st Contact Info) Description 01/08/2022 Telephone Obstetrics [place] [phone] Alla Weinberg RN Social History Tobacco Use [...] Telephone Encounter - Alla Weinberg RN - 01/08/2022 4:48 PM EDT Checked in with Aniya as planned, she states no change since earlier today. Just waking up from anap. * Telephone Encounter - Alla Weinberg RN - 01/08/2022 12:23 PM EDT Returned call to Aniya A Ene Regarding her concern from yesterday. 8w5d GA ?? Hx notable for HTN, coronary vasopasm, ND in October 2021, with subcutaneous defib implant in place. Aniya calling today stating that there has really been no change since yesterday except that the left-sided pain she had yesterday is no longer felt a couple of inches under ribs has moved down andnow feels just above her left hip. Has had several small bowel movements since yesterday, but does not feel that her bowels have completely emptied. Feels pressure in perineal area. States had a large amount of milky white vaginal discharge, that is requiring her to where a panty-liner. Has not noticed a foul odor associated with the discharge. Denies vaginal bleeding. States she has had roughly 46 oz of fluid today - water and gatorade. Expresses concern about possible miscarriage. Has upcoming appointment with Dr. Torres tomorrow. We discussed that it is likely a stool mass that is moving through her descending colon, and this could be causing rectal pressure as well. We discussed a plan to continue to focus on getting her bowels evacuated by increasing her fluid intake to a minimum of 96oz daily, increase dietary fiber (vegetables and fruits) and use either colace or miralax (as recommended by covering OB provider) to help facilitate bowel movements. We made a plan to check in at the end of the day today to see how she is feeling. Aniya verbalized understanding of and agreement with all of the above and is in agreement with plan. * Telephone Encounter - Alla Weinberg RN - 01/08/2022 12:21 PM EDT ----- Message from Britany Andrade sent at 01/08/2022 11:55 AM EDT ----- Regarding: No Change Caller's name: Aniya Luque Call back #: [phone] Patient's provider/team: [facility] Reason for call: Calling back from yesterday's issue it has not changed documented in this encounter Plan of Treatment Upcoming Encounters Date Type Department Care Team (Late st Contact Info) Description 09/21/2024 8:15 AM EST Routine Obstetrics [place] [address] Emili Cabrera MD [facility] [place] [address] 09/26/2024 6:00 PM EST Appointment [facility] [place] [address] 10/16/2024 [place] [address] Dudley Aguilar MD [facility] DR OBSTET[place]ICS [place] [address] 11/08/2024 10:00 AM EST Hospital Encounter Non-Invasive [place] [address] Arrived documented as of this encounter Visit Diagnoses Not on filedocumented in this encounter Care Teams Portfolio Assistant Relationship Specialty Start Date End Date Kenia Lawrence APRN [address] [place] [address] PCP - General Family Medicine 10/10/21 05/20/22 documented as of this encounter
--- OUTSIDE RECORDS SUMMARY | 2024-09-20 11:08 | XMS_ITS | Encounter Summary ---
Author Organization [facility] Address [facility] [place] [address] Care Team Providers Care Antique Jewelry Repairer Name Role Phone Kenia Lawrence ADRIAN Primary Care Provider +1- [phone] Encounter Details Date Type Department Care Team (Late st Contact Info) Description 01/15/2022 Orders Only Cardiology at [address] [address] Social History Tobacco Use Types [...] AM EST Routine Obstetrics [place] [address] Emili Cabrera MD [facility] MATERNAL [place] [address] 09/26/2024 6:00 PM EST Appointment [facility] [place] [address] 10/16/2024 Hospital [place]counter [place] [address] Dudley Aguilar MD [facility] DR OBSTETRICS AND GYNECOLOGY [place] [id number] 11/08/2024 10:00 AM EST Hospital Encounter Non[place] [address] Arrived documented as of this encounter Procedures Procedure Name Priority Date/Time Associated Diagnosis Comments CARDIAC DEVICE CHECK - REMOTE PATIENT INITIATED Routine 01/15/2022 7:31 AM EDT documented in this encounter Results * Cardiac device check - Remote Patient Initiated (01/15/2022 7:31 AM EDT) Pathologist [facility] Implantable Pulse Generator Type Defibrillator [employer] Implantable Pulse Generator Model A219 [employer] Implantable Pulse Generator Serial Number [id number] ID[employer] Implantable Pulse Generator Vessel Scrapper [employer] Implantable Pulse Generator Implant Date [id number] IDCO Date Time Interrogation Session IDCO Type Interrogation Session Remote Patient Initiated IDCO Clinic Name [facility] IDCO Battery Date Time of Measurements [...] Model 3501 [employer] Implantable Lead Serial Number [id number] [employer] Implantable Lead Vessel Scrapper [employer] IDCO Implantable Lead Location Other IDCO Implantable Lead Location Detail 1 Subcutaneous IDCO Anatomical Region Laterality Modality Other 01/15/2022 7:31 AM EDT Physician Cardiology IMPLANTABLE CARD IAC DEVICE documented in this encounter Visit Diagnoses Not on filedocumented in this encounter Care Teams Antique Jewelry Repairer Relationship Specialty Start Date End Date Kenia Lawrence APRN [address] [place] [address] PCP - General Family Medicine 10/10/21 05/20/22 documented as of this encounter
--- OUTSIDE RECORDS SUMMARY | 2024-09-20 11:08 | XMS_ITS | Encounter Summary ---
[place] [address] Care Team Providers Care Rn Case Mgr Name Role Phone Melinda, Kenia Marilin CAMPBELL Primary Care Provider +1- [phone] Reason for Referral * Consultation (Routine) - Closed Specialty Diagnoses / Procedures Referred By Nellie t Referred To Contact Obstetrics and Gynecology Diagnoses , unspecified gestational age Coronary artery vasospasm Yudi Oliveira MD [facility] [place] [address] [facility] [employer] [address] [place] [address] Referral ID Status Reason Start Date Expiration Date V isits Requested Visits Authorized [id number] Closed Continuity of Care 01/29/2022 01/29/2023 1 1 Reason for Visit * Reason Comments Routine Visit Encounter Details Date Type Department Care Team (Late st Contact Info) Description 01/29/2022 8:15 AM EDT Routine Obstetrics [place] [address] Yudi Oliveira MD [facility] [place] [address] GA: 11w5d Social History Tobacco Use Types Packs/Day Years [...] Sign Reading Time Taken Comments Blood Pressure 118/76 01/29/2022 8:11 AM EDT Pulse - - Temperature - - Respiratory Rate - - Oxygen Saturation - - Inhaled Oxygen Concentration - - Weight 73.3 kg (161 lb 11.2 oz) 01/29/2022 8:11 AM EDT Height - - Body Mass Index 26.91 01/15/2022 3:19 PM EDT documented in this encounter Progress Notes * Yudi Oliveira MD - 01/29/2022 8:15 AM EDT 11w5d BP 118/76 Wt 73.3 kg (161 lb 11.2 oz) LMP 11/08/2021 BMI 26.91 kg/m?? Continuing to struggle with smoking. Had appointment with quit line yesterday. States the person she spoke with is going to contact OB and cardiology to discuss medication treatment options for her. No OB complaints. No cardiac complaints. Bedside US: viable IUP. Finish labs today. Normal cf-DNA screening. Desires nutrition consultation. RTC 3-4 weeks. documented in this encounter Plan of Treatment Upcoming Encounters Date Type Department Care Team (Late st Contact Info) Description 09/21/2024 8:15 AM EST Routine Obstetrics [place] [address] Emili Cabrera MD [facility] [place] [address] 09/26/2024 6:[address] [facility] [place] [address] 10/16/2024 [place] [address] Dudley Aguilar MD [facility] DR OBST[place] [address] 11/08/2024 10:00 AM EST Hospital Encounter [place] [address] Arrived Scheduled Referrals Name Type Priority Associated Diagnoses Orde r Schedule Referral to Nutrition Services Outpatient Referral Routine , unspecified gestational age Coronary artery vasospasm Ordered: 01/29/2022 documented as of this encounter Procedures Procedure Name Priority Date/Time Associated Diagnosis Comments HC GC GENE AMP Routine 01/29/2022 9:22 AM EDT , unspecified gestational age Coronary artery vasospasm HC PROTEIN, QUANTITATIVE, URINE Routine 01/29/2022 9:22 AM EDT , unspecified gestational age Coronary artery vasospasm HC HEPATITIS C ANTIBODY Routine 01/29/2022 9:08 AM EDT , unspecified gestational age Coronary artery vasospasm HC RUBELLA ANTIBODY Routine 01/29/2022 9 :08 AM EDT , unspecified gestational age Coronary artery vasospasm HC HIV SCREEN, 4TH GENERATION Routine 01/29/2022 9:08 AM EDT , unspecified gestational age Coronary artery vasospasm HC HEPATITIS B SURFACE AB Routine 01/29/2022 9:08 AM EDT , unspecified gestational age Coronary artery vasospasm HC VARICELLA ZOSTER ANTIBODY Routine 01/29/2022 9:08 AM EDT , unspecified gestational age Coronary [...] who have questions, please contact the health health care recruiter that requested your imaging first. ?Floyd Wang, Staff Physician Electronically Signed Final Report ?? 03/26/2022 09:19 am Narrative 03/26/2022 9:20 AM EDT OBSTETRICS REPORT ?(Signed Final 03/26/2022 09:19 am) PATIENT INFO: ID #: ? [id number] ?: ??[birth year] (36 yrs)(F) Name: ? JOSE JUAN LUQUE ? Visit Date: 03/26/2022 09:09 am PERFORMED BY: Performed By: ? Arcelia Coles RDMS Attending: ?Kathleen LOUISE, Floyd Seth Referred By: ?Yudi OLIVEIRA Location: ? [place] SERVICE(S) PROVIDED: [facility] - Detailed Morphology - [id number] ? [id number] INDICATIONS: 19 weeks gestation of ?Z3A.19 maternal [...] Not Visualized SVC: ? Not visualized Cardiac [place]: ?Visualized Diaphragm: ? Visualized 3 Vessel View: [...] 03/26/2022 09:19 am) PATIENT INFO: ID #: [id number] : [birth year] (36 yrs)(F) Name: OJSE JUAN LUQUE Visit Date: 03/26/2022 09:09 am PERFORMED BY: Performed By: Arcelia Coles RDMS Attending: Floyd Wang MD Referred By: [facility] Location: [place] SERVICE(S) PROVIDED: [facility] - Detailed Morphology - [id number] INDICATIONS: 19 weeks gestation of Z3A.19 maternal [...] Arch: Not Visualized SVC: Not visualized Cardiac [place]: Visualized Diaphragm: Visualized 3 Vessel View: Visualized [...] who have questions, please contact the health health care recruiter that requested your imaging first. Floyd Wang, Staff Physician Electronically Signed Final Report 03/26/2022 09:19 am E Luz Oliveira MD [facility] OB ORDERAB LES * GC/Chlamydia ([facility]CGP/APD/NLH) Urine (01/29/2022 9:22 AM EDT) GC Gene Amp Negative Negative [facility] Comment: The only FDA approved specimen types for this assay are cervical, vaginal, urethral and urine. Non-FDA approved sources are eye, throat and rectal and have been internally validated. GC Source Urine [facility] Chlamydia Gene Amp Negative Negative [facility] Comment: The only FDA approved specimen types for this assay are cervical, vaginal, urethral and urine. Non-FDA approved sources are eye, throat and rectal and have been internally validated. Chlm Source Urine [facility] Urine 01/29/2022 9:22 AM EDT 01/29/2022 10:49 AM EDT Narrative Resulting Agency Comment Spec In Lab E Luz Oliveira MD MICROBIOLOGY - HEALTH SYSTEM ORDERABLES [facility] [place] [address] * Protein/Creatinine Ratio, urine (01/29/2022 9:22 AM EDT) Creatinine, Urine 118 mg/dL [facility] Protein, Urine 9 0 - 12 mg/dL [facility] Protein / Creatinine Ratio, Urine <0.1 ratio [facility] Urine 01/29/2022 9:22 AM EDT 01/29/2022 9:29 AM EDT Narrative Resulting Agency Comment Spec In Lab E Luz Oliveira MD URINE ORDERABLES Performing Organization Address [facility] Co de Phone Number [facility] [place] [address] * Varicella zoster Antibody, IgG (01/29/2022 9:08 AM EDT) Varicella Zoster Antibody IgG Positive Positive [facility] Comment: A positive result for this assay is considered to be an indicator of positive immune status. Blood 01/29/2022 9:08 AM EDT 01/29/2022 10:45 AM EDT Narrative Resulting Agency Comment Spec In Lab E Luz Oliveira MD IMMUNOLOGY ORDERA BLES Performing Organization Address [facility] Co de Phone Number [facility] [place] [address] * Rubella Antibody, IgG (01/29/2022 9:08 AM EDT) Pathologist [facility] Rubella Antibody IgG Positive Positive [facility] Comment: Please note: ??A positive result for this assay indicates that antibody levels are >or= 10.0 IU/mL and is considered to be an indicator of positive immune status. Blood 01/29/2022 9:08 AM EDT 01/29/2022 9:31 AM EDT Narrative Resulting Agency Comment Spec In Lab E Luz Oliveira MD CHEMISTRY ORDERAB LES Performing Organization Address [facility] Co de Phone Number [facility] [place] [address] * HIV Screen, 4th Generation ([facility]/CGP/APD/NLH) (01/29/2022 9:08 AM EDT) [facility] HIV Ab/Ag Screen Negative Negative [facility] Comment: This 4th Generation [...] HIV Comment Low Risk of HIV Infection [facility] Blood 01/29/2022 9:08 AM EDT 01/29/2022 9:31 AM EDT Narrative Resulting Agency Comment Spec In Lab E Luz Oliveira MD CHEMISTRY ORDERAB LES Performing Organization Address [facility] Co de Phone Number [facility] [place] [address] * Hepatitis B Surface Antibody (01/29/2022 9:08 AM EDT) Hepatitis B Surface Antibody, Quantitative 320.0 IU/L [facility] Comment: HepB Surface Ab Quant: Unvaccinated: < 8.5 IU/L Vaccinated: > 11.5 IU/L Hepatitis B Surface Antibody Positive [facility] Comment: Patient is considered to be immune to HBV infection. Expected Results: Vaccinated: Positive Unvaccinated: Negative Blood 01/29/2022 9:08 AM EDT 01/29/2022 9:31 AM EDT Narrative Resulting Agency Comment Spec In Lab E Luz Oliveira MD CHEMISTRY ORDERAB LES Performing Organization Address [facility] Co de Phone Number [facility] [place] [address] * Hepatitis C Antibody (01/29/2022 9:08 AM EDT) Hepatitis C Antibody Negative Negative [facility] Blood 01/29/2022 9:08 AM EDT 01/29/2022 9:31 AM EDT Narrative Resulting Agency Comment Spec In Lab E Luz Oliveira MD CHEMISTRY ORDERAB LES Performing Organization Address [facility] Co de Phone Number [facility] [place] [address] documented in this encounter Visit Diagnoses Diagnosis , unspecified gestational age Coronary artery vasospasm Prinzmetal angina , 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
--- OUTSIDE RECORDS SUMMARY | 2024-09-20 11:08 | XMS_ITS | Encounter Summary ---
Author Organization [facility] Address [facility] [place] [address] Care Team Providers Care Brick Maker Name Role Phone Kenia Lawrence ADRIAN Primary Care Provider +1- [phone] Encounter Details Date Type Department Care Team (Late st Contact Info) Description 01/15/2022 Orders Only Cardiology at [address] [address] Social History Tobacco Use Types [...] AM EST Routine Obstetrics [place] [address] Emili Cabrera MD [facility] [place] [address] 09/26/2024 6:00 PM EST Appointment [facility] [place] [address] 10/16/2024 Hospital [place] [address] Dudley Aguilar MD [facility] DR OBSTETRICS AND GYNECOLOGY [place] [id number] 11/08/2024 10:00 AM EST Hospital Encounter [place] [address] Arrived documented as of this encounter Procedures Procedure Name Priority Date/Time Associated Diagnosis Comments CARDIAC DEVICE CHECK - REMOTE PATIENT INITIATED Routine 01/15/2022 7:29 AM EDT documented in this encounter Results * Cardiac device check - Remote Patient Initiated (01/15/2022 7:29 AM EDT) Pathologist [facility] Implantable Pulse Generator Type Defibrillator [employer] Implantable Pulse Generator Model A219 [employer] Implantable Pulse Generator Serial Number [id number] [employer] Implantable Pulse Generator Family Services Assistant [employer] Implantable Pulse Generator Implant Date [id number] [employer] Date Time Interrogation Session [employer] Type Interrogation Session Remote Patient Initiated IDCO Clinic Name [facility] IDCO Battery Date Time of Measurements [...] Model 3501 [employer] Implantable Lead Serial Number [id number] [employer] Implantable Lead Family Services Assistant [employer] Implantable Lead Location Other [employer] Implantable Lead Location Detail 1 Subcutaneous [employer] Anatomical Region Laterality Modality Other 01/15/2022 7:29 AM EDT Physician Cardiology IMPLANTABLE CARD IAC DEVICE documented in this encounter Visit Diagnoses Not on filedocumented in this encounter Care Teams Brick Maker Relationship Specialty Start Date End Date Kenia Lawrence APRN [address] [place] [address] PCP - General Family Medicine 10/10/21 05/20/22 documented as of this encounter
--- OUTSIDE RECORDS SUMMARY | 2024-09-20 11:08 | XMS_ITS | Encounter Summary ---
[place] [address] Care Team Providers Care Watershed Program Manager Name Role Phone MelindaKenia ford ADRIAN Primary Care Provider +1- [phone] Encounter Details Date Type Department Care Team (Late st Contact Info) Description 01/25/2022 Telephone [place] [address] Todd Melendrez Social History Tobacco Use Types [...] * Telephone Encounter - Todd Melendrez - 01/25/2022 11:37 AM EDT Left message requesting return call. Please offer appointment with Sahil Dacosta for smoking cessation (see referral). documented in this encounter Plan of Treatment Upcoming Encounters Date Type Department Care Team (Late st Contact Info) Description 09/21/2024 8:15 AM EST Routine Obstetrics [place] [address] Emili Cabrera MD [facility] [place] [address] 09/26/2024 6:00 PM EST Appointment [facility] [place] [address] 10/16/2024 [place] [address] Dudley Aguilar MD [facility] DR OBSTETRICS [place] [address] 11/08/2024 10:00 AM EST Hospital Encounter Non-[place]vasive [place] [address] Arrived documented as of this encounter Visit Diagnoses Not on filedocumented in this encounter Care Teams Watershed Program Manager Relationship Specialty Start Date End Date Kenia Lawrence APRN [address] [place] [address] PCP - General Family Medicine 10/10/21 05/20/22 documented as of this encounter
--- OUTSIDE RECORDS SUMMARY | 2024-09-20 11:08 | XMS_ITS | Encounter Summary ---
Author Organization [facility] Address [facility] [place] [address] Care Team Providers Care Wood Heel Back Liner Name Role Phone Kenia Lawrence ADRIAN Primary Care Provider +1- [phone] Encounter Details Date Type Department Care Team (Latest Contact Info) Description 01/16/2022 1:29 PM EDT - 01/16/2022 11:59 PM EDT Hospital [place] [address] Yudi Oliveira MD [facility] DR OBSTET[place] [address] Supervision of high risk in first trimester Discharge Disposition: Home Social History Tobacco [...] End Date fluticasone propionate (Flonase) 50 mcg/actuation [place], SuspensionIndications: allergic rhinitis 1 spray by Each [...] mg-1.33 mg/mL) oral liquid Take by mouth. prazosin (MINIPRESS) 1 mg Capsule Take 1 mg by mouth 3 times daily. 02/13/2022 documented as of this encounter Plan of Treatment Upcoming Encounters Date Type Department Care Team (Late st Contact Info) Description 09/21/2024 8:15 AM EST Routine Obstetrics [place] [address] Emili Cabrera MD [facility] [place] [address] 09/26/2024 6:00 PM EST Appointment [facility] [place] [address] 10/16/2024 Hospital [place] [address] Dudley Aguilar MD [facility] [place] [address] 11/08/2024 10:00 AM EST Hospital Encounter Non-[place] [address] Arrived documented as of this encounter Procedures Procedure Name Priority Date/Time Associated Diagnosis Comments US OB TRANSVAGINAL Routine 01/16/2022 1: 54 PM EDT Supervision of high risk in [...] who have questions, please contact the health anesthesiologist and critical care that requested your imaging first. ? Danielle Rausch, Leasing Professional Electronically Signed Final Report ?? 01/16/2022 01:59 pm Narrative 01/16/2022 1:59 PM EDT OBSTETRICS REPORT ?(Signed Final 01/16/2022 01:59 pm) PATIENT INFO: ID #: ? [id number] ?: ??[birth year] (36 yrs)(F) Name: ? JOSE JUAN LUQUE ? Visit Date: 01/16/2022 01:33 pm PERFORMED BY: Performed By: ? Stokes RDMS, Faiza Attending: ?Shalom LOUISE, Danielle Alarcon Resident: ? [place], Darron Rodrigues Referred By: ?Yudi OLIVEIRA Location: ? [place] SERVICE(S) PROVIDED: [facility] - Viability -Transvaginal - [id number] ? [id number] INDICATIONS: 9 weeks gestation of ? Z3A.09 f/u viability; trace subchorionic hemorrhage TECHNIQUE/SCAN [...] 01/16/2022 01:59 pm) PATIENT INFO: ID #: [id number] : [birth year] (36 yrs)(F) Name: JOSE JUAN LUQUE Visit Date: 01/16/2022 01:33 pm PERFORMED BY: Performed By: Faiza Thakkar RDMS Attending: Danielle Rausch MD Resident: Darron Dia MD Referred By: Yudi OLIVEIRA Location: [place] SERVICE(S) PROVIDED: [facility] - Viability -Transvaginal - [id number] INDICATIONS: 9 weeks gestation of Z3A.09 f/u [...] who have questions, please contact the health anesthesiologist and critical care that requested your imaging first. Danielle Rausch, Leasing Professional Electronically Signed Final Report 01/16/2022 01:59 pm E Luz Oliveira MD IMG US OB ORDERAB LES documented in this encounter Visit Diagnoses Diagnosis Supervision of high risk in first trimester Unspecified high-risk documented in this encounter Care Teams Wood Heel Back Liner Relationship Specialty Start Date End Date Kenia Lawrence, ADRIAN [address] [place] [address] PCP - General Family Medicine 10/10/21 05/20/22 documented as of this encounter
--- OUTSIDE RECORDS SUMMARY | 2024-09-20 11:09 | XMS_ITS | Encounter Summary ---
Author Organization [facility] [place] [address] Care Team Providers Care Garden Consultant Name Role Phone Kenia Lawrence APRN Primary Care Provider +1- [phone] Encounter Details Date Type Department Care Team (Late st Contact Info) Description 12/21/2021 External Results Obstetrics [place] [address] Yolanda Humphrey, RN Social History Tobacco Use [...] AM EST Routine Obstetrics [place] [address] Emili Cabrera MD [facility] MATERNAL [place] [address] 09/26/2024 6:00 PM EST Appointment [facility] [place] [address] 10/16/2024 Hospital [place] [address] Dudley Aguilar MD [facility] DR OBSTETRICS [place] [address] 11/08/2024 10:00 AM EST Hospital Encounter [place] [address] Arrived documented as of this encounter Procedures Procedure Name Priority Date/Time Associated Diagnosis Comments BETA HCG, QUANTITATIVE Routine 12/21/2021 documented in this encounter Results * Beta HCG, quantitative (12/21/2021) Beta Human Chorionic Gonadotropin, Quantitative 18,555 Blood 12/21/2021 Historical Provider CHEMISTRY ORDERAB LES documented in this encounter Visit Diagnoses Not on filedocumented in this encounter Care Teams Garden Consultant Relationship Specialty Start Date End Date Kenia Lawrence APRN [address] [place] [address] PCP - General Family Medicine 10/10/21 05/20/22 documented as of this encounter
--- OUTSIDE RECORDS SUMMARY | 2024-09-20 11:09 | XMS_ITS | Encounter Summary ---
Author Organization [facility] Address [facility] [place] [address] Care Team Providers Care Systems Analysis Manager Name Role Phone MelindaKenia ford ADRIAN Primary Care Provider +1- [phone] Encounter Details Date Type Department Care Team (Late st Contact Info) Description 12/07/2021 Telephone Cardiology at [address] [place] [address] Valorie Ru[place] [address] Social History Tobacco Use Types Packs/Day Years [...] encounter Miscellaneous Notes * Telephone Encounter - Valorie Ruiz MD - 12/07/2021 9:14 AM ESTSummary: return phone call I placed another call to Ms. Luque to respond to her incoming call. Note that I had tried twice prior and was only able to leave a message. I am out of the office but did want to connect with her. I asked her if she could share with our team nurse her information and message to me, I could then provide a response and have that communicated with her. Again, I was only able to leave a message documented in this encounter Plan of Treatment Upcoming Encounters Date Type Department Care Team (Late st Contact Info) Description 09/21/2024 8:15 AM EST Routine Obstetrics [place] [address] Emili Cabrera MD [facility] MATERNAL [place] [address] 09/26/2024 6:00 PM EST [facility] [address] 10/16/2024 Hospital [place] [address] Dudley Aguilar MD [facility] DR OBSTETRICS [place] [address] 11/08/2024 10:00 AM EST Hospital Encounter Non-Invasive [place] [address] Arrived documented as of this encounter Visit Diagnoses Not on filedocumented in this encounter Care Teams Systems Analysis Manager Relationship Specialty Start Date End Date Kenia Lawrence APRN [address] [place] [address] PCP - General Family Medicine 10/10/21 05/20/22 documented as of this encounter
--- OUTSIDE RECORDS SUMMARY | 2024-09-20 11:09 | XMS_ITS | Encounter Summary ---
Author Organization [facility] [place] [address] Care Team Providers Care Twisting Operator Name Role Phone MelindaKenia ford ADRIAN Primary Care Provider +1- [phone] Encounter Details Date Type Department Care Team (Late st Contact Info) Description 12/14/2021 Telephone Obstetrics [place] [address] Yolanda Humphrey, RN Social History Tobacco Use [...] Telephone Encounter - Yolanda Humphrey RN - 12/14/2021 12:00 PM EST Received call from patient stating Dr. Torres left for her yesterday asking her to call the office to speak to nursing staff. Patient states she is unsure of what this was involving and that Dr. Torres stated on vm that she would fill nurses in. Advised patient that I was unsure what the message was regarding. Will route a message to Dr. Love inquire about this and will call patient back once I have more information. documented in this encounter Plan of Treatment Upcoming Encounters Date Type Department Care Team (Late st Contact Info) Description 09/21/2024 8:15 AM EST Routine Obstetrics [place] [address] Emili Cabrera MD [facility] [place] [address] 09/26/2024 6:00 PM EST Appointment [facility] [place] [address] 10/16/2024 [place] [address] Dudley Aguilar MD [facility] DR OBSTETRICS [place] [address] 11/08/2024 10:00 AM EST Hospital Encounter Non[place] [address] Arrived documented as of this encounter Visit Diagnoses Not on filedocumented in this encounter Care Teams Twisting Operator Relationship Specialty Start Date End Date Kenia Lawrence APRN [address] [place] [address] PCP - General Family Medicine 10/10/21 05/20/22 documented as of this encounter
--- OUTSIDE RECORDS SUMMARY | 2024-09-20 11:09 | XMS_ITS | Encounter Summary ---
Author Organization [facility] Address [facility] [address] Care Team Providers Care Sound Effects Manager Name Role Phone Kenia Lawrence ADRIAN Primary Care Provider +1- [phone] Encounter Details Date Type Department Care Team (Late st Contact Info) Description 12/16/2021 Orders Only Cardiology at [address] [address] Social History Tobacco Use Types [...] AM EST Routine Obstetrics [place] [address] Emili Cabrera MD [facility] [place] [address] 09/26/2024 6:00 PM EST Appointment [facility] [place] [address] 10/16/2024 [facility] [place] [address] Dudley Aguilar MD [facility] DR OBSTETRICS [place] [address] 11/08/2024 10:00 AM EST Hospital Encounter Non-Invasive [place] [address] Arrived documented as of this encounter Procedures Procedure Name Priority Date/Time Associated Diagnosis Comments CARDIAC DEVICE CHECK - REMOTE PATIENT INITIATED Routine 12/16/2021 4:04 PM EST documented in this encounter Results * Cardiac device check - Remote Patient Initiated (12/16/2021 4:04 PM EST) Pathologist [facility] [place] [facility] Implantable Pulse Generator Type Defibrillator IDCO Implantable Pulse Generator Model A219 IDCO Implantable Pulse Generator Serial Number [id number] IDCO Implantable Pulse Generator Resource Center Teacher [employer] IDCO Implantable Pulse Generator Implant Date 20211112 IDCO Date Time Interrogation Session IDCO Type Interrogation Session Remote Patient Initiated IDCO Clinic Name [facility] IDCO Battery Date Time of Measurements IDCO [...] IDCO Episode Statistic Recent Date Time End 20211216 IDCO Episode Statistic Total Count 0 IDCO Episode Statistic Total Date Time Start 20211112 IDCO Episode Statistic Total Date Time End 20211216 IDCO Episode Statistic Type Category VF IDCO Episode Statistic Vendor Type Category VF IDCO Episode Statistic Recent Count 0 IDCO Episode Statistic Recent Date Time Start 20211128 IDCO Episode Statistic Recent Date Time End 20211216 IDCO Episode Statistic Total Count 0 IDCO Episode Statistic Total Date Time Start 20211112 IDCO Episode Statistic Total Date Time End 20211216 IDCO Therapy Statistic Recent Date Time Start 20211128 IDCO Therapy Statistic Recent Date Time End 20211216 IDCO Therapy Statistic Recent Shocks Delivered 0 IDCO Therapy Statistic Total Date Time Start 20211112 IDCO Therapy Statistic Total Date Time End 20211216 IDCO Therapy Statistic Total Shocks Delivered 1 IDCO Implantable Lead Model 3501 IDCO Implantable Lead Serial Number [id number] IDCO Implantable Lead Resource Center Teacher [place] [employer] IDCO Implantable Lead Location Other IDCO Implantable Lead Location Detail 1 Subcutaneous IDCO Anatomical Region Laterality Modality Other 12/16/2021 4:04 PM EST Physician Cardiology IMPLANTABLE CARD IAC DEVICE documented in this encounter Visit Diagnoses Not on filedocumented in this encounter Care Teams Sound Effects Manager Relationship Specialty Start Date End Date Kenia Lawrence APRN [address] [place] [address] PCP - General Family Medicine 10/10/21 05/20/22 documented as of this encounter
--- OUTSIDE RECORDS SUMMARY | 2024-09-20 11:09 | XMS_ITS | Encounter Summary ---
Author Organization [facility] Address [facility] [place] [address] Care Team Providers Care Lining Layer Name Role Phone Kenia Lawrence APRN Primary Care Provider +1- [phone] Reason for Visit * Consultation (Routine) - Closed Specialty Diagnoses / Procedures Referred By Nellie mckeon Referred To Contact Gastroenterology Diagnoses Gastro-esophageal reflux disease without esophagitis GERD Kenia Lawrence APRN [address] [place] [address] [facility] [place] [address] Referral ID Status Reason Start Date Expiration Date V isits Requested Visits Authorized [id number] Closed Consult, Test & Treat Connection Center PCP Updated and/or Approved 11/15/2021 11/15/2022 3 3 Encounter Details Date Type Department Care Team (Late st Contact Info) Description 01/01/2022 11:30 AM EDT Office [place] [address] Kim Barajas PA [facility] [place] [address] Dyspepsia Social History Tobacco Use Types Packs/Day Years [...] Sign Reading Time Taken Comments Blood Pressure 133/76 01/01/2022 11:32 AM EDT Pulse 94 01/01/2022 11:32 AM EDT Temperature - - Respiratory Rate - - Oxygen Saturation - - Inhaled Oxygen Concentration - - Weight 73 kg (161 lb) 01/01/2022 11:32 AM EDT Height - - Body Mass Index 27.64 01/01/2022 9:30 AM EDT documented in this encounter Progress Notes * Kim Barajas PA - 01/01/2022 11:30 AM EDT GASTROENTEROLOGY TELEHEALTH PROGRAM - NEW PATIENT VISIT Chief Complaint: Aniya Luque is a 36 y.o. patient referred for consultation by Dr. Lawrence for GERD History of Present Illness: 36 y.o. female with PMH significant for GERD, ALIRIO, MDD, chronic nausea,reactive airway disease, HTN, bipolar, depression and anxiety 10/2020 Patient endorses heartburn with regurgitation Symptoms have been occurring for 3+ months She has been seen in the emergency department for her symptoms and has been give a GI cocktail She is currently taking Mylanta and lidocaine prn She is also taking Carafate before meals, pantoprazole (am) and Nexium (afternoon) and famotidine (before bed). Prior she was taking lansoprazole. She is not sure how long she has been taking these medications for. She finds it has been somewhat helpful, though she still has 'flairs'. She uses Mylanta and lidocaine for flairs. If she misses any of the above, she has worsening symptoms Some dysphagia to solids and pill/ globus sensation She was taking motrin and tylenol. Recently her neurologist recommended discontinuing No melena or hematochezia No previous EGD History of anorexia. No history of bulimia Interval History 01/01/22 Since her last appointment over 1 year ago she did complete EGD which was a normal exam. She is currently on famotidine and acid plus lidocaine liquid. She is no longer taking a PPI-her Nexium was discontinued Since I saw Aniya a year ago, she was hospitalized earlier this year where she had cardiac arrestrequiring extensive resuscitation. On her day of admission she again had a witnessed cardiac arrestrequiring again multiple resuscitation efforts. Cardiac arrest was attributed to vasospasm Soon after her cardiac arrest she found out she was and is currently 8 weeks. She was toldher is high risk and subsequent medications have been adjusted due to teratogenicity. She continues to have intermittent chest discomfort and uses sublingual nitrogen as needed. She didhave a subcu ICD implanted on 11/12/2021. She is scheduled to see a digital sales representative/GYN provider this From a GI standpoint, she continues to have dyspepsia which she describes as a burning through her esophagus and chest She has found antacid and lidocaine liquid fairly beneficial Review of systems: 14-point review of systems reviewed and negative except as above. Medications: ??? amLODIPine (Norvasc) 10 mg Tablet ??? isosorbide mononitrate CR (Imdur) 30 mg Tablet Sustained Release 24 hr ??? Hydrocortisone 0.5 % Lotion ??? diclofenac (Voltaren) 1 % Gel ??? famotidine (Pepcid) 20 mg Tablet ??? fluticasone propionate (Flonase) 50 mcg/actuation Mcfaddin, Suspension ??? acetaminophen (Tylenol) 500 mg Tablet ??? nitroGLYcerin (Nitrostat) 0.4 mg Tablet, Sublingual ??? clonazePAM (KlonoPIN) 0.5 mg Tablet ??? vitamin C 500 mg Tablet ??? cetirizine (ZyrTEC) 10 mg Tablet ??? fluticasone propionate (Flovent HFA) 110 mcg/actuation HFA Aerosol Inhaler ??? ipratropium-albuteroL (Duoneb) 0.5 mg-3 mg(2.5 mg base)/3 mL Solution for Nebulization ??? mag/aluminum/sod bicarb/alginc (GAVISCON ORAL) ??? pantoprazole EC (Protonix) 40 mg Tablet, Delayed Release (E.C.) ??? sucralfate (Carafate) 1 gram Tablet ??? diphenhydrAMINE/aluminum-magnesium hydroxide with simethicone/lidocaine (BMX) (6.67 mg-0.83 mg-13.33 mg-1.33 mg/mL) oral liquid ??? prazosin (MINIPRESS) 1 mg Capsule ??? albuterol 90 mcg/actuation HFA Aerosol Inhaler ??? calcium carbonate (TUMS) 200 mg calcium (500 mg) Tablet, Chewable Allergies: is allergic to augmentin [amoxicillin-pot clavulanate], ipratropium, morphine, penicillins, and seroquel [quetiapine]. 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 Past Surgical History: has a past surgical history that includes Dilation and curettage of uterus and Upper GI Endoscopy, Diagnostic (22006) (N/A, 01/09/2021). Family History: denies family history of colon cancer, IBD, or celiac disease in mother father or other family members Social History: reports that she has been smoking cigarettes. She has a 15.00 pack-year smoking history. She has never used smokeless tobacco. She reports previous alcohol use. She reports previous drug use. Tobacco- smoke 1/2-1 pack per day EtOH- none x 2 years Drugs- none Physical exam: No Physical Examination performed during this telemedicine visit Assessment/Plan: 36-year-old female seen in follow-up for history of heartburn and regurgitation last seen 1 year ago. At her last appointment we discussed proceeding with diagnostic studies including an EGD. EGD wasperformed on January 09, 2021 was a normal exam. Since then she experienced cardiac arrest on several occasions with extensive resuscitation effortsand is currently followed by cardiology. Etiology was thought to be related to vasospasm. She also found out she was soon after and is currently 8 weeks . Given her recent cardiac arrest, her is considered high risk and she is scheduled to see a digital sales representative/GYN provider this . She has been having chest pain which is resolving with sublingual nitroglycerin. In terms of her dyspepsia she continues to have burning through her esophagus and chest. She is on famotidine and acidplus lidocaine which provides her with some benefit. Her PPI was discontinued. We discussed how hersymptoms may be related esophageal hypersensitivity and functional dyspepsia. There is a possibility of esophageal spasm though this typically would cause pain and less likely a burning sensation. At this time, she plans to continue on her regimen which her ophthalmic tech and current RETAIL COSMETICS SALES COUNTER MANAGER are aware of. Perhaps a PPI can be considered, however I would defer this to her RETAIL COSMETICS SALES COUNTER MANAGER and ophthalmic tech to determine if it is appropriate from a non-GI standpoint. That being said, she feels comfortable onher current regimen and plans to focus her energy on her current cardiac and OB situation. In the future, we certainly can consider a formal work-up for esophageal spasm [facility] [place] [address] documented in this encounter Plan of Treatment Upcoming Encounters Date Type Department Care Team (Late st Contact Info) Description 09/21/2024 8:15 AM EST Routine Obstetrics [place] [address] Emili Cabrera MD [facility] [place] [address] 09/26/2024 6:00 PM EST Appointment [facility] [place] [address] 10/16/2024 Hospital [place] [address] Dudley Aguilar MD [facility] OBSTETRICS [place] [address] 11/08/2024 10:00 AM EST Hospital Encounter Non-Invasive [place] [address] Arrived Scheduled Referrals Name Type Priority Associated Diagnoses Order Schedule Referral to Gastroenterology Outpatient Referral Routine Gastroesophageal reflux disease, unspecified whether esophagitis present Ordered: 12/06/2021 documented as of this encounter Visit Diagnoses Diagnosis Dyspepsia Dyspepsia and other specified disorders of function of stomach documented in this encounter Care Teams Lining Layer Relationship Specialty Start Date End Date Kenia Lawrence, PRINT FINISHER [address] [place] [address] PCP - General Family Medicine 10/10/21 05/20/22 documented as of this encounter
--- OUTSIDE RECORDS SUMMARY | 2024-09-20 11:09 | XMS_ITS | Encounter Summary ---
Author Organization [facility] Address [facility] [place] [address] Care Team Providers Care Laundry Clerk Name Role Phone Kenia Lawrence ADRIAN Primary Care Provider +1- [phone] Encounter Details Date Type Department Care Team (Late st Contact Info) Description 12/14/2021 Notes Only Cardiology at [address] [place] [address] Valorie Ruiz MD [facility] [place] [address] Social History Tobacco Use Types Packs/Day Years [...] as of this encounter Progress Notes * Valorie Ruiz MD - 12/14/2021 3:03 PM EST Valorie Ruiz MD sent to Romana Torres MD Cc: Kaylen Brasher MD; Isai Yap MD; Valorie Ruiz MD Thanks Romana 1) I would say the odds are that she does not have obstructive CAD in her RCA but w/o evaluation (CTA, cath, or perhaps stress test) we would not know. ?? 2) my thought with Ca channel blockers are that should she become hypotensive and/or run into any other complications, may have to stop these. ??Unclear what would happen with spasm. ??Same goes for using IVNTG which is used to treat spasm 3) I am not sure why she has been using SLNTG but surely if this is lomax to ischemia it would be a concern 4) again, her risk for spasm during and deliver-->??? 5) I am not sure of the impact of an ICD firing during a and/or delivery--Arvind may have more experience with this 6) her psycho-social issues would be a concern from my perspective 7) note, I believe we now have a cardio-obstetric subspecialty; Dr. Brasher may be able to comment andwhat this team could offer in terms of evaluation and outlining risks Valorie documented in this encounter Plan of Treatment Upcoming Encounters Date Type Department Care Team (Late st Contact Info) Description 09/21/2024 8:15 AM EST Routine Obstetrics [place] [address] Emili Cabrera MD [facility] [place] [address] 09/26/2024 6:00 PM EST Appointment [facility] [place] [address] 10/16/2024 [place] [address] Dudley Aguilar MD [facility] OBSTETR[place] [address] 11/08/2024 10:00 AM EST Hospital Encounter Non-Invasive [place] [address] Arrived documented as of this encounter Visit Diagnoses Not on filedocumented in this encounter Care Teams Laundry Clerk Relationship Specialty Start Date End Date Kenia Lawrence APRN [address] [place] [address] PCP - General Family Medicine 10/10/21 05/20/22 documented as of this encounter
--- OUTSIDE RECORDS SUMMARY | 2024-09-20 11:09 | XMS_ITS | Encounter Summary ---
Author Organization [facility] Address [facility] [place] [address] Care Team Providers Care Manager Personnel Selection Name Role Phone Kenia Lawrence ADRIAN Primary Care Provider +1- [phone] Encounter Details Date Type Department Care Team (Late st Contact Info) Description 12/18/2021 Orders Only Cardiology at [address] [address] Social History Tobacco Use Types [...] AM EST Routine Obstetrics [place] [address] Emili Cabrera MD [facility] [place] [address] 09/26/2024 6:00 PM EST Appointment [facility] [place] [address] 10/16/2024 [facility] [place] [address] Dudley Aguilar MD [facility] DR OBSTETRICS [place] [address] 11/08/2024 10:00 AM EST Hospital Encounter Non-Invasive [place]iology [place] [address] Arrived documented as of this encounter Procedures Procedure Name Priority Date/Time Associated Diagnosis Comments CARDIAC DEVICE CHECK - REMOTE PATIENT INITIATED Routine 12/18/2021 7:54 AM EST documented in this encounter Results * Cardiac device check - Remote Patient Initiated (12/18/2021 7:54 AM EST) Pathologist [facility] Implantable Pulse Generator Type Defibrillator IDCO Implantable Pulse Generator Model A219 IDCO Implantable Pulse Generator Serial Number [id number] IDCO Implantable Pulse Generator Coal Hauler [employer] IDCO Implantable Pulse Generator Implant Date 20211112 IDCO Date Time Interrogation Session IDCO Type Interrogation Session Remote Patient Initiated IDCO Clinic Name [facility] IDCO Battery Date Time of Measurements IDCO [...] IDCO Episode Statistic Recent Date Time End 20211218 IDCO Episode Statistic Total Count 0 IDCO Episode Statistic Total Date Time Start 20211112 IDCO Episode Statistic Total Date Time End 20211218 IDCO Episode Statistic Type Category VF IDCO Episode Statistic Vendor Type Category VF IDCO Episode Statistic Recent Count 0 IDCO Episode Statistic Recent Date Time Start 20211128 IDCO Episode Statistic Recent Date Time End 20211218 IDCO Episode Statistic Total Count 0 IDCO Episode Statistic Total Date Time Start 20211112 IDCO Episode Statistic Total Date Time End 20211218 IDCO Therapy Statistic Recent Date Time Start 20211128 IDCO Therapy Statistic Recent Date Time End 20211218 IDCO Therapy Statistic Recent Shocks Delivered 0 IDCO Therapy Statistic Total Date Time Start 20211112 IDCO Therapy Statistic Total Date Time End 20211218 IDCO Therapy Statistic Total Shocks Delivered 1 IDCO Implantable Lead Model 3501 IDCO Implantable Lead Serial Number [id number] IDCO Implantable Lead Coal Hauler [place] [employer] IDCO Implantable Lead Location Other IDCO Implantable Lead Location Detail 1 Subcutaneous IDCO Anatomical Region Laterality Modality Other 12/18/2021 7:54 AM EST Physician Cardiology IMPLANTABLE CARD IAC DEVICE documented in this encounter Visit Diagnoses Not on filedocumented in this encounter Care Teams Manager Personnel Selection Relationship Specialty Start Date End Date Kenia Lawrence, SURVEY STATISTICIAN [address] [place] [address] PCP - General Family Medicine 10/10/21 05/20/22 documented as of this encounter
--- OUTSIDE RECORDS SUMMARY | 2024-09-20 11:09 | XMS_ITS | Encounter Summary ---
Author Organization [facility] Address [facility] [place] [address] Care Team Providers Care Automotive Sales Specialist Name Role Phone Kenia Lawrence ADRIAN Primary Care Provider +1- [phone] Encounter Details Date Type Department Care Team (Late st Contact Info) Description 12/18/2021 Orders Only Cardiology at [address] [address] Social History Tobacco Use Types [...] AM EST Routine Obstetrics [place] [address] Emili Cabrera MD [facility] [place] [address] 09/26/2024 6:00 PM EST Appointment [facility] [place] [address] 10/16/2024 [facility] [place] [address] Dudley Aguilar MD [facility] DR OBSTETRICS [place] [address] 11/08/2024 10:00 AM EST Hospital Encounter Non[place] [address] Arrived documented as of this encounter Procedures Procedure Name Priority Date/Time Associated Diagnosis Comments CARDIAC DEVICE CHECK - REMOTE PATIENT INITIATED Routine 12/18/2021 7:50 AM EST documented in this encounter Results * Cardiac device check - Remote Patient Initiated (12/18/2021 7:50 AM EST) Pathologist [facility] Implantable Pulse Generator Type Defibrillator IDCO Implantable Pulse Generator Model A219 IDCO Implantable Pulse Generator Serial Number [id number] IDCO Implantable Pulse Generator Housing Liaison Sem[employer] IDCO Implantable Pulse Generator Implant Date 20211112 IDCO Date Time Interrogation Session IDCO Type Interrogation Session Remote Patient Initiated IDCO Clinic Name [facility] IDCO Battery Date Time of Measurements IDCO [...] Model 3501 IDCO Implantable Lead Serial Number [id number] IDCO Implantable Lead Housing Liaison [place] [employer] IDCO Implantable Lead Location Other IDCO Implantable Lead Location Detail 1 Subcutaneous IDCO Anatomical Region Laterality Modality Other 12/18/2021 7:50 AM EST Physician Cardiology IMPLANTABLE CARD IAC DEVICE documented in this encounter Visit Diagnoses Not on filedocumented in this encounter Care Teams Automotive Sales Specialist Relationship Specialty Start Date End Date Kenia Lawrence, ASSISTANT BASEBALL COACH [address] [place] [address] PCP - General Family Medicine 10/10/21 05/20/22 documented as of this encounter
--- OUTSIDE RECORDS SUMMARY | 2024-09-20 11:09 | XMS_ITS | Encounter Summary ---
Author Organization [facility] [place] [address] Care Team Providers Care Spray Blender Name Role Phone MelindaKenia ford ADRIAN Primary Care Provider +1- [phone] Encounter Details Date Type Department Care Team (Late st Contact Info) Description 12/12/2021 Telephone Obstetrics [place] [address] Yolanda Humphrey, RN Social History Tobacco Use [...] Telephone Encounter - Yolanda Humphrey RN - 12/12/2021 9:35 AM EST Called to patient re: abdominal cramping Hx: , early , LMP ? 11/04 5w3d GA bHCG on 12/10: 626 Recent hospitalization for ND, now with ICD in place. Patient saw Dr. Torres on Friday for initial visit. Today she calls to report ongoing lowerpelvic pain that feels like it is steadily worsening. She reports today the pain is mostly on her right side of lower pelvis and she rates the pain 7 or 8/10 and reports it woke her up from her sleeplast night. She reports some light pink discharge on toilet paper when wiping. She describes the pain as constant, but that it gets a little better with position changes. She reports increasing nausea but denies vomiting. Advised patient that should have urgent ultrasound follow up today to r/o ectopic . Patient [facility] her so she will go to ED there. I discussed this case with Dr. Torres who agrees to plan. I called [facility] to give them report on patient prior to her arrival. documented in this encounter Plan of Treatment Upcoming Encounters Date Type Department Care Team (Late st Contact Info) Description 09/21/2024 8:15 AM EST Routine Obst[place]s [place] [address] Emili Cabrera MD [facility] DR MATERNAL [place] [address] 09/26/2024 6:00 PM EST Appointment [facility] [place] [address] 10/16/2024 Hospital En[place] [address] Dudley Aguilar MD [facility] DR OBSTETRICS [place] [address] 11/08/2024 10:00 AM EST Hospital Encounter Non-[place] [address] Arrived documented as of this encounter Visit Diagnoses Not on filedocumented in this encounter Care Teams Spray Blender Relationship Specialty Start Date End Date Kenia Lawrence APRN [address] [place] [address] PCP - General Family Medicine 10/10/21 05/20/22 documented as of this encounter
--- OUTSIDE RECORDS SUMMARY | 2024-09-20 11:09 | XMS_ITS | Encounter Summary ---
Author Organization [facility] [place] [address] Care Team Providers Care Life Enrichment Specialist Name Role Phone MelindaKenia ford ADRIAN Primary Care Provider +1- [phone] Encounter Details Date Type Department Care Team (Late st Contact Info) Description 12/19/2021 Telephone Obstetrics [place] [phone] Carey Ibarra RN Social History Tobacco Use [...] Telephone Encounter - Carey Ibarra RN - 12/19/2021 12:00 PM EST Returned call to Damari Luque, :1985 asking for HCG result. Relayed result today of 12,684. Discussed case with Dr. Oliveira, plan to move up US to this week >Friday. Reinforced with patient that if pain worsens evaluation should occur immediately in nearest ED- Damari verbalized understanding and agreed. * Telephone Encounter - Carey Ibarra RN - 12/19/2021 9:49 AM EST Answered returning call from Damari Torres Ene, : 1985. of uncertain dating. Last seen in clinic 12/17. Had US demonstrating IUP. Damari reports ongoing abdominal cramping that is worsening. She states it feels like I am about to get my period She denies vaginal bleeding. She states the pain is generalized and not worse in any particular area of her abdomen. She states the pain is 8/10. She took some tylenol this morning that only help a little. She had a bowel movement today, denies vomiting or diarrhea. She is + for nausea, states she stopped Zofran per cardiology's recommendation. Ate dinner last night, reports some decreased appetite 2/2 nausea, still drinking water (unsure daily intake). She reports she had HCG drawn at [facility] [place] this morning. She denies pain or burning with urination. Denies fever. Recommended eval in ED d/t severe abdominal pain, patient does not want to do this as she reports she has already done this and does not want unnecessary exposure to COVID. Damari is scheduled for ultrasound and follow up this upcoming Friday- Damari wants to know if it should be moved up or if she should get checked before then. Discussed if pain is severe evaluation should occur in ED. Will reach out to provider to see if outpatient work up can be moved up. * Telephone Encounter - Carey Ibarra RN - 12/19/2021 9:05 AM EST Attempted to call Damari Torres Ene, no answer LVM for callback. * Telephone Encounter - Carey Ibarra RN - 12/19/2021 9:05 AM EST ----- Message from Britany Andrade sent at 12/19/2021 8:55 AM EST ----- Regarding: Call Back Caller's name: damari Luque Call back #: [phone] Patient's provider/team: Dr Torres Reason for call: She would only say I had a very rough night and would like to talk with a Nurse documented in this encounter Plan of Treatment Upcoming Encounters Date Type Department Care Team (Late st Contact Info) Description 09/21/2024 8:15 AM EST Routine Obstetrics [place] [address] Emili Cabrera MD [facility] [place] [address] 09/26/2024 6:00 PM EST Appointment [facility] [place] [address] 10/16/2024 [facility] [place] [address] Dudley Aguilar MD [facility] DR OBSTETRICS [place] [address] 11/08/2024 10:00 AM EST Hospital Encounter [place] [address] Arrived documented as of this encounter Visit Diagnoses Not on filedocumented in this encounter Care Teams Life Enrichment Specialist Relationship Specialty Start Date End Date Kenia Lawrence APRN [address] [place] [address] PCP - General Family Medicine 10/10/21 05/20/22 documented as of this encounter
--- OUTSIDE RECORDS SUMMARY | 2024-09-20 11:09 | XMS_ITS | Encounter Summary ---
Author Organization [facility] [place] [address] Care Team Providers Care Bell Spinner Name Role Phone MelindaKenia ford ADRIAN Primary Care Provider +1- [phone] Encounter Details Date Type Department Care Team (Late st Contact Info) Description 12/21/2021 Telephone Obstetrics [place] [phone] Yolanda Humphrey, RN Social History Tobacco Use [...] Telephone Encounter - Yolanda Humphrey RN - 12/21/2021 3:53 PM EST Aniya calling to report fever. She is 6w GA. She states today around 2:00 pmg she began feeling cold and shaky. She fell asleep and woke up because she felt like she was burning up She took her temperature and it was 101.3 and then 99.9. She reports body aches as well. She reports she always has a chronic cough, but she does have a sore throat as well. She reports she is currently on her way to her PCP office for evaluation. Advised her to report to PCP office as plan and to follow up with us with any questions or concerns. Patient agrees to this. documented in this encounter Plan of Treatment Upcoming Encounters Date Type Department Care Team (Late st Contact Info) Description 09/21/2024 8:15 AM EST Routine Obstetrics [place] [address] Emili Cabrera MD [facility] [place] [address] 09/26/2024 6:00 PM EST Appointment [facility] [place] [address] 10/16/2024 [place] [address] Dudley Aguilar MD [facility] DR OBSTETRICS [place] [address] 11/08/2024 10:00 AM EST Hospital Encounter Non-[place] [address] Arrived documented as of this encounter Visit Diagnoses Not on filedocumented in this encounter Care Teams Bell Spinner Relationship Specialty Start Date End Date Kenia Lawrence APRN [address] [place] [address] PCP - General Family Medicine 10/10/21 05/20/22 documented as of this encounter
--- OUTSIDE RECORDS SUMMARY | 2024-09-20 11:09 | XMS_ITS | Encounter Summary ---
[place] [address] Care Team Providers Care Channel Process Plant Operator Name Role Phone MelindaKenia ford ADRIAN Primary Care Provider +1- [phone] Encounter Details Date Type Department Care Team (Late st Contact Info) Description 12/14/2021 Telephone Cardiology at [address] [phone] Tiffany Moon, RN Social History Tobacco Use [...] Telephone Encounter - Tiffany Moon, RN - 12/17/2021 5:38 PM EST TC to Mrs Luque regarding message from Dr Zurita: In light of her , the DFT's are definitely cancelled. Thanks for helping with communication - I think that having one source of contact is probably goingto be very helpful for adherence/compliance here. Mrs Luque states she has had a rough day, and she is very disappointed, after her operating room scheduler appointment as they are recommending that she terminate her . Note from Dr Ruiz in her chart, and according to Mrs Luque she has not spoken with her in quitea while, and had a telehealth with her on 11/23/2021. Mrs Luque states her CHEERLEADING COACH recommended Dr Zurita to her, to see her during her . Asked Aniya to try to relax tonight, and give Dr Zurita time to review her chart, and we will call her back. Tiffany Moon RN (Jodie), BSN Cardiology Ambulatory Clinic * Telephone Encounter - Tiffany Moon RN - 12/14/2021 12:02 PM EST TC to Mrs Luque to reconcile medications, and assess Blood Pressure. She states she has cut her Amlodipine in half to 5 mg, Daily. Her Blood Pressure 117/76, O2 Saturation 98%, and Pulse 73, now. Tried med Rec, and put on hold as she had a call in for her boarding kennel or cattery operator, regarding abdominal, and Vaginal pain. She stated 1 ear was 101, temperature, and the other 98, or normal. Able to confirm 1/2 of patient's list as accurate. She confirms she has stopped taking Lisinopril. Tiffany Moon RN (Jodie), BSN Cardiology Ambulatory Clinic documented in this encounter Plan of Treatment Upcoming Encounters Date Type Department Care Team (Late st Contact Info) Description 09/21/2024 8:15 AM EST Routine Obstetrics [place] [address] Emili Cabrera MD [facility] MATERNAL [place] [address] 09/26/2024 6:00 PM EST [facility] [place] [address] 10/16/2024 Hospital Encounter [facility] [place] [address] Dudley Aguilar MD [facility] DR OBSTETRICS [place] [address] 11/08/2024 10:00 AM [facility] Hospital Encounter Non-Invasive [place] [phone] Arrived documented as of this encounter Visit Diagnoses Not on filedocumented in this encounter Care Teams Channel Process Plant Operator Relationship Specialty Start Date End Date Kenia Lawrence APRN [address] [place] [address] PCP - General Family Medicine 10/10/21 05/20/22 documented as of this encounter
--- OUTSIDE RECORDS SUMMARY | 2024-09-20 11:09 | XMS_ITS | Encounter Summary ---
Author Organization [facility] Address [facility] [place] [address] Care Team Providers Care Surveillance Systems Analyst Name Role Phone MelindaKneia ford ADRIAN Primary Care Provider +1- [phone] Encounter Details Date Type Department Care Team (Late st Contact Info) Description 12/11/2021 Telephone Obstetrics [place] [phone] Romana Torres MD [facility] DR OBSTETRICS [place] [address] Social History Tobacco Use Types Packs/Day Years [...] encounter Miscellaneous Notes * Telephone Encounter - Romana Torres MD - 12/11/2021 5:09 PM EST I called the patient with her quantitative HCG result which was 626 mIU/ml indicating a good likelihood of an ongoing intrauterine . She denies significant pain and bleeding. I asked her to return on 12/17 and we can do another quantitative HCG and follow up consultation. I asked her to stop lisinopril and Lipitor for now. Romana Torres MD documented in this encounter Plan of Treatment Upcoming Encounters Date Type Department Care Team (Late st Contact Info) Description 09/21/2024 8:15 AM EST Routine Obstetrics [place] [address] Emili Cabrera MD [facility] [place] [address] 09/26/2024 6:00 PM EST [facility] [place] [address] 10/16/2024 [place] [address] Dudley Aguilar MD [facility] DR OBSTETRICS [place] [address] 11/08/2024 10:00 AM EST Hospital Encounter Non[place] [address] Arrived documented as of this encounter Visit Diagnoses Not on filedocumented in this encounter Care Teams Surveillance Systems Analyst Relationship Specialty Start Date End Date Kenia Lawrence APRN [address] [place] [address] PCP - General Family Medicine 10/10/21 05/20/22 documented as of this encounter
--- OUTSIDE RECORDS SUMMARY | 2024-09-20 11:09 | XMS_ITS | Encounter Summary ---
Author Organization [facility] [place] [address] Care Team Providers Care Painter Set Name Role Phone MelindaKenia ford ADRIAN Primary Care Provider +1- [phone] Reason for Referral * Consultation (Urgent) - Closed Specialty Diagnoses / Procedures Referred By Nellie mckeon Referred To Contact Primary Care Diagnoses Cardiac arrest Ej Zurita MD [facility] [place] [address] [facility] [place] [address] Referral ID Status Reason Start Date Expiration Date V isits Requested Visits Authorized [id number] Closed Consult, Test & Treat 12/13/2021 12/13/2022 1 1 Encounter Details Date Type Department Care Team (Late st Contact Info) Description 12/13/2021 3:30 PM EST Office Visit Cardiology at [address] [address] Ej Zurita MD [facility] [place] [address] Cardiac arrest Social History Tobacco Use Types [...] Sign Reading Time Taken Comments Blood Pressure 139/69 12/13/2021 4:03 PM EST Pulse 95 12/13/2021 4:03 PM EST Temperature - - Respiratory Rate - - Oxygen Saturation 100% 12/13/2021 4:03 PM EST Inhaled Oxygen Concentration - - Weight 72.6 kg (160 lb) 12/13/2021 4:03 PM EST Height 162.6 cm (5' 4) 12/13/2021 4:03 PM EST Body Mass Index 27.46 12/13/2021 4:03 PM EST documented in this encounter Patient Instructions * Patient Instructions* Ej Zurita MD - 12/13/2021 5:03 PM EST Tomorrow take a half tablet of your amlodipine and check your blood pressure prior to our call. documented in this encounter Progress Notes * Ej Zurita MD - 12/13/2021 3:30 PM EST Images from the original note were not included. CARDIO-OBSTETRICS OUTPATIENT NEW PATIENT NOTE PRIMARY CARE PROVIDER: Kenia Lawrence APRN Chief Complaint: Aniya Luque is a 36 y.o. female here for the evaluation of after recent cardiac arrest secondary to vasospasm. HPI: PROBLEM LIST: #Hypertension #Tobacco Use #Anxiety/Depression-benzodiazepines #YOON on CPAP- on 1 year; sleep study done for snoring #Cardiac arrest attributed to vasospasm Very early (4-6 Weeks) . LMP in the hospital. The patient was hospitalized 11/04-. She had a witnessed VF cardiac arrest with bystander CPR and ROSC after extensive resuscitation. Targeted temperature management was pursued. Troponin-T was trended, stormy from 0.02 on presentation to 0.24. Around 3pm on day of admission patient again had witnessed cardiac arrest. Went into junctional rhythm with ST elevations on telemetry. Rhythm progressed to pulseless Vtach and then Vfib. She was shocked x 3, given 300 mg amio bolus and started on an amiogtt. Post resuscitation ECG shows sinus tachycardia with QTC of 484 and no acute ischemic changes. ??No significant changes were found compared to her prior ECG.?There was no evidence of Brugada or accessory pathway. ??The patient underwent CT PE which was negative for PE. ??Her head CT was alsonegative for bleed. Emergent cath without obstructive left sided CAD. VF occurred again after injection of her left main coronary artery and her arrest was thus presumed due to severe coronary vasospa sm. Needed IABP, nicardipine, amiodarone, and lidocaine. The RCA was not injected due to lack of plaque and profound vasospasm on the left sided injections. There did not appear to have been myocardial damage nor cardiomyopathy. LVEF 68% without RWMA. She has a sub-Q ICD which has not fired. And was counseled extensively to quit smoking. Prior to this hospitalization she had never had an HI or stroke. She had hypertension and smoked cigarettes but reports no diabetes. Body weight is normal. No clear family history of SCD or CAD. She reports that she actually hasn't been feeling right for the past couple of years. Her symptoms include dizziness, low energy, fatigue, and midsternal chest burning that radiates to the shoulders and around to the back. Burning is associated with coughing/bringing phlegm, sweating, and shortness of breath. No syncope. Endoscopy completed due to concern for GERD. Pathology normal. Still takes pepcid. Gets burning back when she doesn't take them. This pain is not classic for angina and she did havean ED evaluation where she ruled out for ACS. This pain does respond to SLN. SLN takes a minute or two to work. 1 tablet takes care of the pain completeluy. Used 3 total times since discharge. She complains of another discomfort in both her arms up to her shoulders and tenderness in the chest that is likely related to CPR. Reports having COVID weeks prior to the hospitalization for cardiac arrest. Did not need COVID-directed therapies or hospitalization for treatment. Since discharge she has no orthopnea, PND, or LE edema. No palpitations. No syncope. Normal device interrogations-has been sending them weekly to the EP team. LHC: Left Main No significant obstructive coronary [...] dated 07/04/16, there is no significant change. OB history: 3 children 5, 12, 18-all healthy, all 2 weeks early Family history: Aunt told her that people in her generation had heart issues in their 30's. Social history: No OTC, supplements Tobacco: smoking 1ppd; smoked since age 14; quit 2 years ago for 1 month; cut- back during pregnancyto 1/2ppd MEDICATIONS: Current Outpatient Medications Medication Sig Dispense Refill ??? diclofenac (Voltaren) 1 % Gel APPLY A QUARTER SIZED AMOUNT TO PAINFUL AREA ON CHEST TWO TIMES ADAY FOR 14 DAYS ??? famotidine (Pepcid) 20 mg Tablet Take 1 tablet by mouth 2 times daily (before meals). Substitute with OTC as needed 60 tablet 0 ??? fluticasone propionate (Flonase) 50 mcg/actuation [place], Suspension 1 spray by Each Nare route nightly. Substitute OTC if needed Indications: inflammation of the nose due to an allergy (Patient not taking: Reported on 12/10/2021) 16 g 1 ??? acetaminophen (Tylenol) 500 mg Tablet Take 2 tablets by mouth every 8 hours as needed for Pain.Substitute OTC if needed 60 tablet 1 ??? lisinopriL (Zestril) 20 mg Tablet Take 1 tablet by mouth daily. 90 tablet 0 ??? amLODIPine (Norvasc) 10 mg Tablet Take 1 tablet by mouth daily. 90 tablet 0 ??? nitroGLYcerin (Nitrostat) 0.4 mg Tablet, Sublingual Place 1 tablet under the tongue every 5 minutes as needed for Chest pain. 30 tablet 0 ??? atorvastatin (Lipitor) 40 mg Tablet Take 1 tablet by mouth every evening. 90 tablet 0 ??? clonazePAM (KlonoPIN) 0.5 mg Tablet Take 2 tablets by mouth 2 times daily. 60 tablet 0 ??? vitamin C 500 [...] mg/mL) oral liquid Take by mouth. ??? hydrOXYzine (Atarax) 25 mg Tablet Take 1 tablet by mouth 3 times daily as needed for Anxiety. (Patient not taking: Reported on 12/10/2021) 30 tablet 12 ??? prazosin (MINIPRESS) 1 mg Capsule Take [...] ros either negative or per HPI Objective: Patient Vitals for the past 24 hrs: Pulse BP SpO2 12/13/21 1603 95 139/69 100 % Gen: pleasant female in NAD Eyes: Non-injected, [...] input(s): PLT Last 3 Lytes Recent Labs 11/16/21 1232 11/14/21 0428 11/13/21 0430 NA 138 137 138 K 4.3 4.3 4.3 CL 103 106 108* CO2 24 21* 20* BUN 16 27* 21* CREATININE 0.91 0.92 0.89 Last 3 ProBNP, Trop, CK No results for input(s): CK, TROPONINT, PROBNP in the last 168 hours. Last 3 TFT Recent Labs 11/16/21 1232 04/23/21 1910 TSH 2.96 1.97 Last 3 Lipids Recent Labs 11/04/21 0735 TRIG 130 Last 3 HgbA1C No results for input(s): HA1C in the last 7068 hours. The ASCVD Risk score (Jolantahenrry FERNANDEZ Jr., et al., 2013) failed to calculate [...] were related to arrhythmias and heart failure. Assessment and Plan: 36 year old female with no significant cardiac history, no significant family history of cardiac disease who suffered multiple witnessed VF arrests in the setting of severe coronary vasospasm. No obstructive CAD in LAD or LCx. RCA not injected. No recurrent ventricular arrhythmias on device interrogation and no evidence of myopathy by TTE. LVEF normal with no regional wall motion abnormalities. Complicated situation. is high risk and her cardiac arrest was very recent. She does not believe in and this is desired. She remains very early in her first trimester butseveral medications have been adjusted due to their known teratogenicity. Her CCB can be continued during , however, she is already showing decreased BP in the setting of decreased SVR of early . Chest discomfort is atypical for angina in location/character but is relieved with SLN and will need to be monitored carefully. mWHO III for Ventricular arrhythmia-Maternal cardiac event rate (largely CHF or arrhythmia) of 19-27% and significantly increased mortality. Carpreg 3- 15% incidence of cardiac events expected Cardio-obstetrics follow up: Bimonthly or monthly during -Will support Aniya and MFM through this -Smoking cessation strongly recommended. Referred to smoking cessation. -Do not think coronary CTA is required at this time to evaluate RCA patency. There are no Qs on herEKG in the inferior distribution and no inferior WMA to suggest inferior ischemia. -Asked my nursing team to call in the am for a medication reconciliation because she forgot her list. -Agree with stopping aspirin and lisinopril due to -Cut amlodipine to 5mg for hypotension and dizziness. BP at home 99/62. -Continue SLN prn chest discomfort. Esophageal spasm remains in the differential and could be investigated. Will consider GI referral. -Sub Q ICD was implanted by Dr Yap on 11/12/2021 for secondary prevention. Continue EP device interrogations. DFT testing is planned 12/20. I messaged EP to make them aware of this . Cardioversion is the preferred choice if needed when patient is . ??ICD shocks (appropriate or inappropriate) are well tolerated from the maternal stand point, psychologically may be not. When she delivers, if she gets that far, we need to have a device computer game programmer ready in anticipation of (cauterization may interfere with ICD sensing). -If there is a significant increase in ventricular arrhythmias prior to viability, termination of for maternal health should be rediscussed. -I am happy to discuss her risks further over the phone prior to the next visit if needed. -Will follow through and at least until 6 months post -I have sent this note to Dr. Torres from [facility] Return in about 2 months (around 02/10/2022) for In Person. Ej Zurita MD 12/13/2021 12:58 PM Thank you for the opportunity to participate in this patient's cardiovascular care. All questions were answered and I look forward to the next visit. documented in this encounter Plan of Treatment Upcoming Encounters Date Type Department Care Team (Late st Contact Info) Description 09/21/2024 8:15 AM EST Routine Obstetrics [place] [address] Emili Cabrera MD [facility] [place] [address] 09/26/2024 6:00 [place] [address] 10/16/2024 [place] [address] Dudley Aguilar MD [facility] DR OBSTETRICS [place] [address] 11/08/2024 10:00 AM EST Hospital Encounter Non-[place] [address] Arrived Scheduled Referrals Name Type Priority Associated Diagnoses Orde r Schedule Referral to Smoking Cessation Program Outpatient Referral Routine Cardiac arrest Ordered: 12/13/2021 documented as of this encounter Visit Diagnoses Diagnosis Cardiac arrest documented in this encounter Care Teams Painter Set Relationship Specialty Start Date End Date Kenia Lawrence APRN [address] [place] [address] PCP - General Family Medicine 10/10/21 05/20/22 documented as of this encounter
--- OUTSIDE RECORDS SUMMARY | 2024-09-20 11:09 | XMS_ITS | Encounter Summary ---
Author Organization Formerly [facility] [place] [address] Care Team Providers Care Information Engineer Name Role Phone Kenia Lawrence PICU NURSE Primary Care Provider +1- [phone] Encounter Details Date Type Department Care Team (Late st Contact Info) Description 12/12/2021 Interpretation Only [address] [address] Michael Lugo MD [address] [place] [address] Social History Tobacco Use Types Packs/Day Years [...] AM EST Routine Obstetric[place] [address] Emili Cabrera MD [facility] MAT[place]NAL [place] [address] 09/26/2024 6:00 PM EST Appointment [facility] [place] [phone] 10/16/2024 Hospital [place] [address] Dudley Aguilar MD [facility] DR OBSTETRICS [place] [address] 11/08/2024 10:00 AM EST Hospital Encounter [place] [phone] Arrived documented as of this encounter Procedures Procedure Name Priority Date/Time Associated Diagnosis Comments US OB TRANSVAGINAL STAT 12/12/2021 2: 44 PM EST documented in this encounter Results * US OB Viability Transvaginal (12/12/2021 2:44 PM EST) PT CLASS E RAD ADMITDTTM RAD PT RAD INFO [id number]^F INDLEY^ROXANNA PATEL CHAD RAD EXAM DESC UOBTV^US OB TRANSVAGINAL ^RIS RAD Anatomical Region Laterality Modality Pelvis, Abdomen Ultrasound Impressions 12/12/2021 3:08 PM EST A likely early viable intrauterine . A repeat ultrasound is recommended in 2 weeks to establish viability. Thank you for letting us participate in the care of this patient. ??If you are a health care provider and have any questions regarding this report, please contact the number below. ??For patients who have questions please contact the health pediatric care coordinator that requested your imaging first. ? Electronically signed by: Luis F Valladares MD, [facility] ([phone]), at 12/12/2021 3:08 PM Narrative 12/12/2021 3:08 PM EST EXAMINATION: US OB TRANSVAGINAL CLINICAL HISTORY: abd pain; ? ectopic TECHNIQUE: Endovaginal pelvic ultrasound COMPARISON: December 06, 2021 FINDINGS: The uterus is anteverted, measures 9.5 cm in length with endometrial thickness of 2.3 cm. There is a small anechoic slightly irregular focus at the fundus, which may represent a gestational sac. This measures approximately 7 mm in circumference for an estimated gestational age of 5 weeks and 3 days. No yolk sac or pole identified. There is a trace, physiologic amount of free simple fluid adjacent to the right ovary. The right ovary measures 2.2 x 1.4 x 2.4 cm, and left 4.5 x 3.2 x 4.7 cm, containing a 3.6 cm simple cyst. Procedure Note Luis F Valladares MD - 12/12/2021 EXAMINATION: US OB TRANSVAGINAL CLINICAL HISTORY: abd pain; ? ectopic TECHNIQUE: Endovaginal pelvic ultrasound COMPARISON: December 06, 2021 FINDINGS: The uterus is anteverted, measures 9.5 cm in length with endometrialthickness of 2.3 cm. There is a small anechoic slightly irregular focus at thefundus, which may represent a gestational sac. This measures approximately 7 mmin circumference for an estimated gestational age of 5 weeks and 3 days. Noyolk sac or pole identified. There is a trace, physiologic amount of free simple fluid adjacent to theright ovary. The right ovary measures 2.2 x 1.4 x 2.4 cm, and left 4.5 x 3.2 x4.7 cm, containing a 3.6 cm simple cyst. IMPRESSION A likely early viable intrauterine . A repeat ultrasound isrecommended in 2 weeks to establish viability. Thank you for letting us participate in the care of this patient. If youare a health care provider and have any questions regarding this report,please contact the number below. For patients who have questions please contactthe health pediatric care coordinator that requested your imaging first. Electronically signed by: Luis F Valladares MD, [facility]([phone]), at 12/12/2021 3:08 PM Michael Lugo MD IMG OB ORDER SUNDEEP documented in this encounter Visit Diagnoses Not on filedocumented in this encounter Care Teams Information Engineer Relationship Specialty Start Date End Date Kneia Lawrence APRN [address] [place] [address] PCP - General Family Medicine 10/10/21 05/20/22 documented as of this encounter
--- OUTSIDE RECORDS SUMMARY | 2024-09-20 11:09 | XMS_ITS | Encounter Summary ---
Author Organization [facility] Address [facility] [place] [address] Care Team Providers Care Fire Suppression Captain Name Role Phone MelindaKenia ford ADRIAN Primary Care Provider +1- [phone] Reason for Visit * Reason Comments Initial Visit Encounter Details Date Type Department Care Team (Late st Contact Info) Description 12/10/2021 2:45 PM EST Initial Obstetrics [place] [address] Romana Torres MD [facility] DR OBSTETRICS [place] [address] GA: 4w4d Social History Tobacco Use Types Packs/Day Years [...] Sign Reading Time Taken Comments Blood Pressure 104/64 12/10/2021 3:15 PM EST Pulse - - Temperature - - Respiratory Rate - - Oxygen Saturation - - Inhaled Oxygen Concentration - - Weight 71.8 kg (158 lb 3.2 oz) 12/10/2021 3:15 P M EST Height - - Body Mass Index 27.15 11/28/2021 4:00 PM EST documented in this encounter Progress Notes * Romana Torres MD - 12/10/2021 2:45 PM EST Initial OB visit The patient was hospitalized . She had a witnessed cardiac arrest with ROSC after extensive resuscitation. The etiology is presumed to be profound vaspospasm. There did not appear to have beenmyocardial damage nor cardiomyopathy. 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 Concerns was raised for hypoxic encephalopathy, but she survived neurologically intact although she does admit to poor concentration. She has an implanted defibrillator which has not fired. She does take nitroglycerine for chest pain. She was discharged on acetaminophen, albuteroL, amLODIPine, ascorbic acid (Vitamin C), atorvastatin, calcium carbonate, cetirizine, clonazePAM, diclofenac, famotidine, fluticasone propionate, hydrOXYzine, ipratropium- albuteroL, iqabuwxwr-ngmxumnfj-ds-mag-sim, lisinopriL,mag/aluminum/sod bicarb/alginc, nitroGLYcerin, pantoprazole EC, prazosin, and sucralfate. A CT angiogram was planned for further evaluation of the coronaries. She has had home positive tests. She reports that she has had quantitative HCG that was 10 units then 50 units. She has not had bleeding. She does have some pelvic pain. Has no history of PID, IUD or tubal surgery. She says she has some support at home. Her fiance has told her he would support terminating the for her health, but she is worried that he would not continue to support her depending on how serious the risk to her was. Patient Vitals for the past 24 hrs: BP 12/10/21 1515 104/64 Appears tired and worried. Poor eye contact. Limited range of affect Well groomed Abd nontender Uterus small Mild CMT Imp: Very early of uncertain viabiltiy Recent life threatening cardiac illness and placement of defibrillator. If she had infarction the risk for mortality during a this soon after the event would be very high, and I would recommend termination of . She seems not to have obstructive coronary artery disease. I will need to learn from her cardiologists the likelihood of infarction from vasospasm this close to her recent illness. She has preexisting PTSD, anxiety and depression. I am sure that the events of the past month could exacerbate her psychiatric symptoms. Plan: Quantitative HCG and repeat in several days When we know the viability of the , will get formal input from cardiology. We will need to stop lisinopril and statins. She will need to limit use of benzodiazepines. Romana Torres MD Cc: MD Kaylen Lord MD documented in this encounter Plan of Treatment Upcoming Encounters Date Type Department Care Team (Late st Contact Info) Description 09/21/2024 8:15 AM EST Routine Obstetrics [place] [address] Emili Cabrera MD [facility] [address] [place]NAL [place] [address] 09/26/2024 6:00 PM EST Appointment [facility] [place] [phone] 10/16/2024 [place] [address] Dudley Aguilar MD [facility] DR OBSTETRICS [place] [address] 11/08/2024 10:00 AM EST Hospital Encounter Non-Invasive [place] [phone] Arrived documented as of this encounter Procedures Procedure Name Priority Date/Time Associated Diagnosis Comments HC URINE CULTURE Routine 12/10/2021 5:22 PM EST , unspecified gestational age HC VENIPUNCTURE Routine 12/10/2021 4:13 PM EST , unspecified gestational age POCT URINE Routine 12/10/2021 , unspecified gestational age POCT URINE DIPSTICK Routine 12/10/2021 , unspecified gestational age documented in this encounter Results * Urine culture Clean Catch Urine (12/10/2021 5:22 PM EST) Urine Culture 1,000-9,000 cfu/ml Insignificant growth [facility] Clean Catch Urine 12/10/2021 5:22 PM EST 12/10/2021 5:22 PM EST Narrative Resulting Agency Comment Spec In Lab Romana Torres MD MICROBIOLOGY - GENER AL ORDERABLES [facility] [place] [id number] * Beta HCG, quantitative (12/10/2021 4:13 PM EST) Beta Human Chorionic Gonadotropin, Quantitative 626 mlU/ML [facility] Comment: REFERENCE RANGES NON- FEMALE: [...] - 56,451 ?17 weeks ? 8,175 - 55,868 ?18 weeks ? 8,099 - 58,176 Blood 12/10/2021 4:13 PM EST 12/10/2021 4:30 PM EST Narrative Resulting Agency Comment Spec In Lab Romana Torres MD CHEMISTRY ORDERABLES [facility] [place] [address] * POCT urine dipstick (12/10/2021) POC Sp [place] 1.01 1.002 - 1.030 POC pH, UA 6 5.0 - 8.5 POC Leuk, UA Negative Negative - Negative POC Nitrite, UA Negative Negative - Negative POC Protein, UA Trace Negative - Negative mg/dL POC Glucose, UA Normal Normal - Normal mg/dL POC Ketone, UA Negative Negative - Negative POC Urobil, UA Normal 0.2 - 1.0 mg/dL POC Bili, UA Negative Negative - Negative POC Blood, UA Negative Negative - Negative rajeev/uL Romana Torres MD POINT OF CARE TEST O RDERABLES * POCT urine (12/10/2021) POC Urine HCG Positive POC Control Internal Controls Acceptable Romana Torres MD POINT OF CARE TEST O RDERABLES documented in this encounter Visit Diagnoses Diagnosis , unspecified gestational age Subcutaneous defibrillator implanted 11/12/2019 documented in this encounter Care Teams Fire Suppression Captain Relationship Specialty Start Date End Date Kenia Lawrence APRN [address] [place] [address] PCP - General Family Medicine 10/10/21 05/20/22 documented as of this encounter
--- OUTSIDE RECORDS SUMMARY | 2024-09-20 11:09 | XMS_ITS | Encounter Summary ---
Author Organization [facility] Address [facility] [place] [address] Care Team Providers Care Public Health Veterinarian Name Role Phone MelindaKenia ford ADRIAN Primary Care Provider +1- [phone] Encounter Details Date Type Department Care Team (Latest Contact Info) Description 12/19/2021 3:00 PM EST - 12/19/2021 11:59 PM [facility] Hospital [place] [phone] Romana Torres MD [facility] DR OBSTETRICS [place] [address] , unspecified gestational age Discharge Disposition: Home Social History Tobacco Use [...] End Date fluticasone propionate (Flonase) 50 mcg/actuation [place], SuspensionIndications: allergic rhinitis 1 spray by Each [...] Take 1 tablet by mouth as needed. Hydrocortisone 0.5 % Lotion Every 12 hours. [...] if needed 60 tablet 1 11/16/2021 07/29/2022 amLODIPine (Norvasc) 10 mg Tablet Take 1 tablet by mouth daily. 90 tablet 11/15/2021 01/01/2022 nitroGLYcerin (Nitrostat) 0.4 mg Tablet, Sublingual Place [...] AM EST Routine Obstetrics [place] [phone] Emili Cabrera MD [facility] [place] [address] 09/26/2024 6:00 PM EST Appointment [facility] [place] [phone] 10/16/2024 [facility] [place] [phone] Dudley Aguilar MD [facility] DR OBSTETRICS [place] [address] 11/08/2024 10:00 AM EST Hospital Encounter Non-[place] [phone] Arrived documented as of this encounter Procedures Procedure Name Priority Date/Time Associated Diagnosis Comments US OB TRANSVAGINAL Routine 12/19/2021 3: 37 PM EST , unspecified gestational age documented in this encounter Results * US OB Viability Transvaginal (12/19/2021 3:37 PM EST) Anatomical Region Laterality Modality Pelvis, Abdomen Ultrasound 12/19/2021 3:12 PM EST Impressions 12/19/2021 3:41 PM EST 1st Trimester Summary Transvaginal scan was performed. Single intrauterine gestational sac is seen corresponding to a gestational age of 5w 6d based on LMP ??(11/08/21) Yolk sac is seen. Thank you for letting us participate in the care of this patient. If you are a health care provider and have any questions regarding this report, please contact the number above. For patients who have questions, please contact the health home health care worker that requested your imaging first. ?Lexie Franco, Staff Physician Electronically Signed Final Report ?? 12/19/2021 03:40 pm Narrative 12/19/2021 3:41 PM EST OBSTETRICS REPORT ?(Signed Final 12/19/2021 03:40 pm) PATIENT INFO: ID #: ? [id number] ?: ??[birth year] (36 yrs)(F) Name: ? JOSE JUAN A KAMRON ? Visit Date: 12/19/2021 03:12 pm PERFORMED BY: Performed By: ? Faiza Thakkar RDMS Attending: ?Joan LOUISE, Lexie Daniel Referred By: ?ROMANA TORRES Location: ? [place] SERVICE(S) PROVIDED: UOBTV - Viability -Transvaginal - [id number] ? [id number] INDICATIONS: Less than 8 weeks gestation of ? Z3A.01 Follow up prior ultrasound for viability and dating TECHNIQUE/SCAN QUALITY: Technique: ?? Transducer ID#: 21 VITAL SIGNS: Weight (lb): 160.0 Height: ?5'4 ? BMI: ? 27.46 EVALUATION: Num Of Fetuses: ? 1 Preg. Location: ? Intrauterine Gest. Sac: ?Visualized Yolk Sac: ? Visualized Pole: ? Too early to identify pole --------- BIOMETRY: --------- GS: ?9.7 ??mm ? G.Age: ?? 5w 5d ? NAZIA: ?? 08/16/22 OB HISTORY: : ?1 GESTATIONAL AGE: LMP: ? 5w 6d ? Date: ??11/08/21 ? NAZIA: ?? 08/15/22 Best: ?5w 6d ?Det. By: ??LMP ??(11/08/21) ?NAZIA: ?? 08/15/22 CERVIX UTERUS ADNEXA: Right Ovary Size(cm) ? 2.1 ??x ?? 1.6 ?x ??1.7 ? Vol(ml): 3.0 Visualized Left Ovary Size(cm) ? 5.0 ??x ?? 3.2 ?x ??4.0 ? Vol(ml): 33.5 Cyst measuring ??3.7 x 2.8 x 3.1 ??cm Cul De Sac Small amount of fluid seen Procedure Note Lexie Franco MD - 12/19/2021 OBSTETRICS REPORT (Signed Final 12/19/2021 03:40 pm) PATIENT INFO: ID #: [id number] : [birth year] (36 yrs)(F) Name: JOSE JUAN LUQUE Visit Date: 12/19/2021 03:12 pm PERFORMED BY: Performed By: Faiza Thakkar RDMS Attending: Lexie Franco MD Referred By: ROMANA TORRES Location: [place] SERVICE(S) PROVIDED: UOBTV - Viability -Transvaginal - [id number] INDICATIONS: Less than 8 weeks gestation of Z3A.01 Follow up prior ultrasound for viability and dating TECHNIQUE/SCAN QUALITY: Technique: Transducer ID#: 21 VITAL SIGNS: Weight (lb): 160.0 Height: 5'4 BMI: 27.46 EVALUATION: Num Of Fetuses: 1 Preg. Location: Intrauterine Gest. Sac: Visualized Yolk Sac: Visualized Pole: Too early to identify pole --------- BIOMETRY: --------- GS: 9.7 mm G.Age: 5w 5d NAZIA: 08/16/22 OB HISTORY: : 1 GESTATIONAL AGE: LMP: 5w 6d Date: 11/08/21 NAZIA: 08/15/22 Best: 5w 6d Det. By: LMP (11/08/21) NAZIA: 08/15/22 CERVIX UTERUS ADNEXA: Right Ovary Size(cm) 2.1 x 1.6 x 1.7 Vol(ml): 3.0 Visualized Left Ovary Size(cm) 5.0 x 3.2 x 4.0 Vol(ml): 33.5 Cyst measuring 3.7 x 2.8 x 3.1 cm Cul De Sac Small amount of fluid seen IMPRESSION 1st Trimester Summary Transvaginal scan was performed. Single intrauterine gestational sac is seen corresponding to a gestational age of 5w 6d based on LMP (11/08/21) Yolk sac is seen. Thank you for letting us participate in the care of this patient. If you are a health care provider and have any questions regarding this report, please contact the number above. For patients who have questions, please contact the health home health care worker that requested your imaging first. Lexie Franco, Staff Physician Electronically Signed Final Report 12/19/2021 03:40 pm Romana Torres MD [facility] OB ORDERABLES documented in this encounter Visit Diagnoses Diagnosis , unspecified gestational age documented in this encounter Care Teams Public Health Veterinarian Relationship Specialty Start Date End Date Kenia Lawrence, ADRIAN [address] [place] [address] PCP - General Family Medicine 10/10/21 05/20/22 documented as of this encounter
--- OUTSIDE RECORDS SUMMARY | 2024-09-20 11:09 | XMS_ITS | Encounter Summary ---
Author Organization [facility] Address [facility] [place] [address] Care Team Providers Care Doctor Of Naprapathy Name Role Phone MelindaKenia ford ADRIAN Primary Care Provider +1- [phone] Reason for Visit * Reason Comments Routine Visit Encounter Details Date Type Department Care Team (Late st Contact Info) Description 12/17/2021 4:30 PM EST Routine Obstetrics [place] [address] Romana Torres MD [facility] DR OBSTETRICS [place] [address] GA: 5w4d Social History Tobacco Use Types Packs/Day Years [...] Sign Reading Time Taken Comments Blood Pressure 116/78 12/17/2021 4:27 PM EST Pulse - - Temperature - - Respiratory Rate - - Oxygen Saturation - - Inhaled Oxygen Concentration - - Weight 72.7 kg (160 lb 3.2 oz) 12/17/2021 4:27 P M EST Height - - Body Mass Index 27.5 12/13/2021 4:03 PM EST documented in this encounter Progress Notes * Romana Torres MD - 12/17/2021 4:30 PM EST PHYLICIA saenz Reports pelvic pressure and some vaginal discomfort. Denies bleeding. She had an ultrasound last week demonstrating an intrauterine of uncertain viability. She continues to use nitroglycerin for chest pain several times a week which is always effective. She cannot distinguish if it is chest pain or pain from esophageal spasm. She is very sad at considering ending the for her health. Patient Vitals for the past 24 hrs: BP 12/17/21 1627 116/78 Appears sad. Tearful, no eye contact, very still Imp: Undated,very early IUP Recent cardiac arrest related to vasospasm. She has a defibrillator that has not yet needed to fire. Her cardiac function is normal and she has not had significant ischemia. I reviewed with her what what we do know and don't know. The major concern of mine is that this is so close in time to her cardiac event that we have little notion of how stable she is. Shehas been seen by Dr. Zurita who has evaluated her carefully. She assesses the patient as: mWHO III for Ventricular arrhythmia-Maternal cardiac event rate (largely CHF or arrhythmia) of 19-27% and significantly increased mortality. Carpreg 3- 15% incidence of cardiac events expected. I reviewed the magnitude of risk for a serious cardiac event with the patient and her fiance. I explained that I am not able to quantify her riskof but that it is many fold higher than her risk without the heart disease. I described the stress of on any woman's heart and our unknown of how her heart will respond. Her partner ex pressed his concern that is not safe for her. I explained that the option of termination is hers but that there is no immediate need to make a decision. She asked questions about how a termination of is carried out. Currently, she feels she could not consider it until she had cell free DNA testing to determine gender and until she heard the heart beat at 10 weeks. I recommended that the next step only be getting her next ultrasound to see if the is viable. Romana Torres MD documented in this encounter Plan of Treatment Upcoming Encounters Date Type Department Care Team (Late st Contact Info) Description 09/21/2024 8:15 AM EST Routine Obstetrics [place] [address] Emili Cabrera MD [facility] [place] [address] 09/26/2024 6:00 PM EST Appointment [facility] [place] [address] 10/16/2024 [place] [phone] Dudley Aguilar MD [facility] DR OBSTETRICS [place] [address] 11/08/2024 10:00 AM EST Hospital Encounter Non-[place]vasive [place] [phone] Arrived documented as of this encounter Results [...] who have questions, please contact the health post acute care registered nurse that requested your imaging first. ?Lexie Franco, Staff Physician Electronically Signed Final Report ?? 12/19/2021 03:40 pm Narrative 12/19/2021 3:41 PM EST OBSTETRICS REPORT ?(Signed Final 12/19/2021 03:40 pm) PATIENT INFO: ID #: ? [id number] ?: ??[birth year] (36 yrs)(F) Name: ? JOSE JUAN Brian LUQUE ? Visit Date: 12/19/2021 03:12 pm PERFORMED BY: Performed By: ? Faiza Thakkar RDMS Attending: ?Joan LOUISE, Lexie Daniel Referred By: ?ROMANA TORRES Location: ? [place] SERVICE(S) PROVIDED: UOBTV - Viability -Transvaginal - [id number] ? [id number] INDICATIONS: Less than 8 weeks gestation of [...] 12/19/2021 03:40 pm) PATIENT INFO: ID #: [id number] : [birth year] (36 yrs)(F) Name: JOSE JUAN LUQUE Visit Date: 12/19/2021 03:12 pm PERFORMED BY: Performed By: Faiza Thakkar RDMS Attending: Lexie Franco MD Referred By: ROMANA TORRES Location: [place] SERVICE(S) PROVIDED: UOBTV - Viability -Transvaginal - [id number] INDICATIONS: Less than 8 weeks gestation of [...] who have questions, please contact the health post acute care registered nurse that requested your imaging first. Lexie Franco, Staff Physician Electronically Signed Final Report 12/19/2021 03:40 pm [facility] Torres MD [facility] OB ORDER[facility] documented in this encounter Visit Diagnoses Diagnosis , unspecified gestational age , unspecified gestational age documented in this encounter Care Teams Doctor Of Naprapathy Relationship Specialty Start Date End Date Kenia Lawrence, SENIOR HYDROGEOLOGIST [address] [place] [address] PCP - General Family Medicine 10/10/21 05/20/22 documented as of this encounter
--- OUTSIDE RECORDS SUMMARY | 2024-09-20 11:09 | XMS_ITS | Encounter Summary ---
Author Organization [facility] [place] [address] Care Team Providers Care Payroll And Benefits Coordinator Name Role Phone Melinda, Kenia Marilin CAMPBELL Primary Care Provider +1- [phone] Reason for Referral * Consultation (Routine) - Closed Specialty Diagnoses / Procedures Referred By Nellie mckeon Referred To Contact Primary Care Diagnoses Nicotine dependence, cigarettes, uncomplicated Yudi Barone MD [facility] OBSTETRICS [place] [address] Sophy Dacosta APRN [facility] [place] [address] Referral ID Status Reason Start Date Expiration Date V isits Requested Visits Authorized [id number] Closed Consult, Test & Treat 12/19/2021 12/19/2022 1 1 Reason for Visit * Reason Comments Routine Visit Encounter Details Date Type Department Care Team (Late st Contact Info) Description 12/19/2021 4:30 PM EST Routine Obstetrics [place] [address] Yudi Barone MD [facility] OBSTETRICS [place] [address] GA: 5w6d Social History Tobacco Use Types Packs/Day Years [...] Sign Reading Time Taken Comments Blood Pressure 112/82 12/19/2021 4:33 PM EST Pulse - - Temperature - - Respiratory Rate - - Oxygen Saturation - - Inhaled Oxygen Concentration - - Weight 72.9 kg (160 lb 12.8 oz) 12/19/2021 4:33 PM EST Height - - Body Mass Index 27.6 12/13/2021 4:03 PM EST documented in this encounter Progress Notes * Yudi Barone MD - 12/19/2021 4:30 PM EST 5w6d Patient presents today due to pelvic pain/cramping. No bleeding. No other complaints. Extremely anxious about her recent cardiac arrest and the . States she does not believe in , but is also worried about the implications of the for her health. Patient Active Problem List Diagnosis Code ??? [...] F17.210 ??? Subcutaneous defibrillator implanted 11/12/2019 Z95.810 BP 112/82 Wt 72.9 kg (160 lb 12.8 oz) LMP 11/08/2021 BMI 27.60 kg/m?? US: GS and yolk sac visualized today, which is forward progress for the . Ms. Lundy states she has no further questions at this time. We discussed the information that Dr. Torres and Dr. Zurita reviewed with her briefly; I also stressed that no matter what she chooses, we will support her in that choice. Working on tobacco cessation; accepts referral to quit line. She will cancel her US and PNV for next Friday, 12/24; plan for f/u US and visit in two weeks. documented in this encounter Plan of Treatment Upcoming Encounters Date Type Department Care Team (Late st Contact Info) Description 09/21/2024 8:15 AM EST Routine Obstetrics [place] [address] Emili Cabrera MD [facility] [place] [address] 09/26/2024 6:00 PM EST Appointment [facility] [place] [address] 10/16/2024 [place] [address] Dudley Aguilar MD [facility] DR OBSTETRICS [place] [address] 11/08/2024 10:00 AM EST Hospital Encounter Non-Invasive [place] [address] Arrived Scheduled Referrals Name Type Priority Associated Diagnoses Orde r Schedule Referral to Smoking Cessation Program Outpatient Referral Routine Nicotine dependence, cigarettes, uncomplicated Ordered: 12/19/2021 documented as of this encounter Results * US OB Viability Transvaginal (01/03/2022 1:40 PM EDT) Anatomical Region Laterality Modality Pelvis, Abdomen Ultrasound 01/03/2022 1:20 PM EDT Impressions 01/03/2022 1:47 PM EDT 1st Trimester Summary Single living intrauterine with a gestational age of 8w 0d based on LMP (11/08/21). The crown rump length corresponds to a gestational age of 7w 6d. Thank you for letting us participate in the care of this patient. If you are a health care provider and have any questions regarding this report, please contact the number above. For patients who have questions, please contact the health intensive care nurse that requested your imaging first. ?Willow Childers, Staff Physician Electronically Signed Final Report ?? 01/03/2022 01:47 pm Narrative 01/03/2022 1:47 PM EDT OBSTETRICS REPORT ?(Signed Final 01/03/2022 01:47 pm) PATIENT INFO: ID #: ? [id number] ?: ??[birth year] (36 yrs)(F) Name: ? JOSE JUAN LUNDY ? Visit Date: 01/03/2022 01:20 pm PERFORMED BY: Performed By: ? Faiza Thakkar RDMS Attending: ?Liseth LOUISE, Willow Lorenzo Resident: ? Darien Nava MD Referred By: ?E NEVILLE ANDERSONMARCELINO Location: ? [place] SERVICE(S) PROVIDED: UOBTV - Viability -Transvaginal - [id number] ? [id number] INDICATIONS: 8 weeks gestation of ? Z3A.08 viability; dating; h/o KS TECHNIQUE/SCAN QUALITY: Technique: ?? Transducer ID#: 21 VITAL SIGNS: Weight (lb): 161.0 Height: ?5'4 ? BMI: ? 27.63 EVALUATION: Num Of Fetuses: ? 1 Preg. Location: ? Intrauterine Gest. Sac: ?Visualized Yolk Sac: ? Visualized Pole: ? Visualized Heart Rate(bpm): ??154 Cardiac Activity: ? Observed Presentation: ? Too early to evaluate Placenta: ? Too early to evaluate Amniotic Fluid ALPHONSO FV: ?Too early to evaluate Comment: ?Trace subchorionic hemorrhage seen. --------- BIOMETRY: --------- CRL: ?14.8 ??mm ? G.Age: ?? 7w 6d ? NAZIA: ?? 08/16/22 OB HISTORY: : ?1 GESTATIONAL AGE: LMP: ? 8w 0d ? Date: ??11/08/21 ? NAZIA: ?? 08/15/22 Best: ?8w 0d ?Det. By: ??LMP ??(11/08/21) ?NAZIA: ?? 08/15/22 CERVIX UTERUS ADNEXA: Right Ovary Size(cm) ? 2.4 ??x ?? 1.4 ?x ??1.6 ? Vol(ml): 2.8 Visualized Left Ovary Size(cm) ? 2.2 ??x ?? 1.9 ?x ??1.9 ? Vol(ml): 4.2 Visualized Cul De Sac No fluid seen Procedure Note Willow Childers MD - 01/03/2022 OBSTETRICS REPORT (Signed Final 01/03/2022 01:47 pm) PATIENT INFO: ID #: [id number] : [birth year] (36 yrs)(F) Name: JOSE JUAN Torres KAMRON Visit Date: 01/03/2022 01:20 pm PERFORMED BY: Performed By: Faiza Thakkar RDMS Attending: Willow Childers MD Resident: Darien Nava MD Referred By: Yudi BARONE Location: [place] SERVICE(S) PROVIDED: UOBTV - Viability -Transvaginal - [id number] INDICATIONS: 8 weeks gestation of Z3A.08 viability; dating; h/o KS TECHNIQUE/SCAN QUALITY: Technique: Transducer ID#: 21 VITAL SIGNS: Weight (lb): 161.0 Height: 5'4 BMI: 27.63 EVALUATION: Num Of Fetuses: 1 Preg. Location: Intrauterine Gest. Sac: Visualized Yolk Sac: Visualized Pole: Visualized Heart Rate(bpm): 154 Cardiac Activity: Observed Presentation: Too early to evaluate Placenta: Too early to evaluate Amniotic Fluid ALPHONSO FV: Too early to evaluate Comment: Trace subchorionic hemorrhage seen. --------- BIOMETRY: --------- CRL: 14.8 mm G.Age: 7w 6d NAZIA: 08/16/22 OB HISTORY: : 1 GESTATIONAL AGE: LMP: 8w 0d Date: 11/08/21 NAZIA: 08/15/22 Best: 8w 0d Det. By: LMP (11/08/21) NAZIA: 08/15/22 CERVIX UTERUS ADNEXA: Right Ovary Size(cm) 2.4 x 1.4 x 1.6 Vol(ml): 2.8 Visualized Left Ovary Size(cm) 2.2 x 1.9 x 1.9 Vol(ml): 4.2 Visualized Cul De Sac No fluid seen IMPRESSION 1st Trimester Summary Single living intrauterine with a gestational age of 8w 0d based on LMP (11/08/21). The crown rump length corresponds to a gestational age of 7w 6d. Thank you for letting us participate in the care of this patient. If you are a health care provider and have any questions regarding this report, please contact the number above. For patients who have questions, please contact the health intensive care nurse that requested your imaging first. Willow Childers, Staff Physician Electronically Signed Final Report 01/03/2022 01:47 pm E Neville Barone MD [facility] OB ORDERAB LES documented in this encounter Visit Diagnoses Diagnosis , unspecified gestational age Cigarette smoker Tobacco use disorder Nicotine dependence, cigarettes, uncomplicated , unspecified gestational age documented in this encounter Care Teams Payroll And Benefits Coordinator Relationship Specialty Start Date End Date Kenia Lawrence, CABLE COVERER [address] [place] [address] PCP - General Family Medicine 10/10/21 05/20/22 documented as of this encounter
--- OUTSIDE RECORDS SUMMARY | 2024-09-20 11:09 | XMS_ITS | Encounter Summary ---
Author Organization [facility] Address [facility] [place] [address] Care Team Providers Care Hot Tamale Man Name Role Phone Kenia [place] APRN Primary Care Provider +1- [phone] Encounter Details Date Type Department Care Team (Late st Contact Info) Description 01/03/2022 2:30 PM EDT Routine Obstetrics [place] [address] Yudi Oliveira MD [facility] DR [place] [address] GA: 8w0d Social History Tobacco Use Types Packs/Day Years [...] Sign Reading Time Taken Comments Blood Pressure 121/77 01/03/2022 2:43 PM EDT Pulse - - Temperature - - Respiratory Rate - - Oxygen Saturation - - Inhaled Oxygen Concentration - - Weight 72.8 kg (160 lb 6.4 oz) 01/03/2022 2:43 P M EDT Height - - Body Mass Index 27.53 01/01/2022 9:30 AM EDT documented in this encounter Progress Notes * Yudi Oliveira MD - 01/03/2022 2:30 PM EDT 8w0d BP 121/77 Wt 72.8 kg (160 lb 6.4 oz) LMP 11/08/2021 BMI 27.53 kg/m?? No OB complaints. No cardiac symptoms. Viability US: viable IUP. FHT not able to be heard on [employer]. Patient still considering termination of . Desires cf-DNA for gender, and wants to hear FHT prior to termination of . Conversation previously with Dr. Torres: may be able to have successful cf-DNA at 9 weeks. I reviewed that it is also highly likelyt that there would be too little DNA at that gestational age; she would like to consider this option further. Plan for RTC 1 week. documented in this encounter Plan of Treatment Upcoming Encounters Date Type Department Care Team (Late st Contact Info) Description 09/21/2024 8:15 AM EST Routine Obstetrics [place] [address] Eimli Cabrera MD [facility] [place] [address] 09/26/2024 6:00 PM EST Appointment [facility] [place] [address] 10/16/2024 [place] [address] Dudley Aguilar MD [facility] [place] [address] 11/08/2024 10:00 AM EST Hospital Encounter Non-[place] [address] Arrived documented as of this encounter Visit Diagnoses Diagnosis Supervision of high risk in first trimester Unspecified high-risk documented in this encounter Care Teams Hot Tamale Man Relationship Specialty Start Date End Date Kenia [place] APRN [address] [place] [address] PCP - General Family Medicine 10/10/21 05/20/22 documented as of this encounter
--- OUTSIDE RECORDS SUMMARY | 2024-09-20 11:09 | XMS_ITS | Encounter Summary ---
Author Organization [facility] [place] [address] Care Team Providers Care Case Manager Name Role Phone Kenia [place] APRN Primary Care Provider +1- [phone] Encounter Details Date Type Department Care Team (Late st Contact Info) Description 12/14/2021 External Results Obstetrics [place] [address] Yolanda Humphrey, RN Social History Tobacco Use [...] AM EST Routine Obstetrics [place] [address] Emili Cabrera MD [facility] [place] [address] 09/26/2024 6:00 PM EST Appointment [facility] [place] [address] 10/16/2024 [place] [phone] Dudley Aguilar MD [facility] DR OBSTETRICS [place] [address] 11/08/2024 10:00 AM EST Hospital Encounter [place] [address] Arrived documented as of this encounter Procedures Procedure Name Priority Date/Time Associated Diagnosis Comments BETA HCG, QUANTITATIVE Routine 12/14/2021 documented in this encounter Results * Beta HCG, quantitative (12/14/2021) Beta Human Chorionic Gonadotropin, Quantitative 3,239 Blood 12/14/2021 Historical Provider CHEMISTRY ORDERAB LES documented in this encounter Visit Diagnoses Not on filedocumented in this encounter Care Teams Case Manager Relationship Specialty Start Date End Date Kenia Lawrence APRN [address] [place] [address] PCP - General Family Medicine 10/10/21 05/20/22 documented as of this encounter
--- OUTSIDE RECORDS SUMMARY | 2024-09-20 11:09 | XMS_ITS | Encounter Summary ---
Author Organization [facility] Address [facility] [place] [address] Care Team Providers Care Learning Support Services Director Name Role Phone Kenia Lawrence ADRIAN Primary Care Provider +1- [phone] Encounter Details Date Type Department Care Team (Late st Contact Info) Description 12/18/2021 Orders Only Cardiology at [address] [address] Social History Tobacco Use Types [...] AM EST Routine Obstetrics [place] [address] Emili Cabrera MD [facility] MATERNAL [place] [address] 09/26/2024 6:00 PM EST Appointment [facility] [place] [address] 10/16/2024 Hospital Encounter [facility] [address] Dudley Aguilar MD [facility] DR OBSTETRICS [place] [address] 11/08/2024 10:00 AM EST Hospital Encounter [place] [address] Arrived documented as of this encounter Procedures Procedure Name Priority Date/Time Associated Diagnosis Comments CARDIAC DEVICE CHECK - REMOTE PATIENT INITIATED Routine 12/18/2021 7:51 AM EST documented in this encounter Results * Cardiac device check - Remote Patient Initiated (12/18/2021 7:51 AM EST) Pathologist [facility] Implantable Pulse Generator Type Defibrillator IDCO Implantable Pulse Generator Model A219 IDCO Implantable Pulse Generator Serial Number [id number] IDCO Implantable Pulse Generator Material Liaison myMatrixx IDCO Implantable Pulse Generator Implant Date 20211112 IDCO Date Time Interrogation Session IDCO Type Interrogation Session Remote Patient Initiated IDCO Clinic Name [facility] IDCO Battery Date Time of Measurements [...] Model 3501 IDCO Implantable Lead Serial Number [id number] IDCO Implantable Lead Material Liaison [place] [employer] IDCO Implantable Lead Location Other IDCO Implantable Lead Location Detail 1 Subcutaneous IDCO Anatomical Region Laterality Modality Other 12/18/2021 7:51 AM EST Physician Cardiology IMPLANTABLE CARD IAC DEVICE documented in this encounter Visit Diagnoses Not on filedocumented in this encounter Care Teams Learning Support Services Director Relationship Specialty Start Date End Date Kenia Lawrence, TOP CUTTER [address] [place] [address] PCP - General Family Medicine 10/10/21 05/20/22 documented as of this encounter
--- OUTSIDE RECORDS SUMMARY | 2024-09-20 11:09 | XMS_ITS | Encounter Summary ---
Author Organization [facility] Address [facility] [place] [address] Care Team Providers Care Purchasing/Receiving Name Role Phone Kenia Lawrence ADRIAN Primary Care Provider +1- [phone] Encounter Details Date Type Department Care Team (Late st Contact Info) Description 01/02/2022 External Results Obstetrics [place] [address] Romana Torres MD [facility] DR OBSTETRICS [place] [address] Social History Tobacco Use Types Packs/Day Years [...] AM EST Routine Obstetrics [place] [address] Emili Cabrera MD [facility] [place] [address] 09/26/2024 6:00 PM EST Appointment [facility] [place] [phone] 10/16/2024 Hospital [place] [address] Dudley Aguilar MD [facility] OBSTETRICS [place] [address] 11/08/2024 10:00 AM EST Hospital Encounter Non-[place]vasive [place] [phone] Arrived documented as of this encounter Procedures Procedure Name Priority Date/Time Associated Diagnosis Comments BETA HCG, QUANTITATIVE Routine 12/26/2021 documented in this encounter Results * Beta HCG, quantitative (12/26/2021) Beta Human Chorionic Gonadotropin, Quantitative 38,731 Blood 12/26/2021 Historical Provider CHEMISTRY ORDERAB LES documented in this encounter Visit Diagnoses Not on filedocumented in this encounter Care Teams Purchasing/Receiving Relationship Specialty Start Date End Date Kenia Lawrence APRN [address] [place] [address] PCP - General Family Medicine 10/10/21 05/20/22 documented as of this encounter
--- OUTSIDE RECORDS SUMMARY | 2024-09-20 11:09 | XMS_ITS | Encounter Summary ---
Author Organization Formerly [facility] Address [facility] [place] [address] Care Team Providers Care Crop Ranch Hand Name Role Phone Kenia Lawrence ADRIAN Primary Care Provider +1- [phone] Encounter Details Date Type Department Care Team (Late st Contact Info) Description 12/07/2021 Orders Only Cardiology at [address] [phone] Social History Tobacco Use Types Packs/Day Years [...] AM EST Routine Obstetrics [place] [address] Emili Cabrera MD [facility] [place]ERNAL [place] [address] 09/26/2024 6:[address] [facility] [place] [address] 10/16/2024 Hospital Encounter [facility] [place] [address] Dudley Aguilar MD [facility] DR OBSTETRICS AND GYNECOLOGY [place] [id number] 11/08/2024 10:00 AM EST Hospital Encounter [place] [address] Arrived documented as of this encounter Procedures Procedure Name Priority Date/Time Associated Diagnosis Comments CARDIAC DEVICE CHECK - REMOTE PATIENT INITIATED Routine 12/07/2021 11:55 AM EST documented in this encounter Results * Cardiac device check - Remote Patient Initiated (12/07/2021 11:55 AM EST) [facility] Implantable Pulse Generator Type Defibrillator IDCO Implantable Pulse Generator Model A219 IDCO Implantable Pulse Generator Serial Number [id number] IDCO Implantable Pulse Generator Manager Architecture 27 bards IDCO Implantable Pulse Generator Implant Date 20211112 IDCO Date Time Interrogation Session IDCO Type Interrogation Session Remote Patient Initiated IDCO Clinic Name [facility] IDCO Battery Date Time of Measurements [...] IDCO Episode Statistic Recent Date Time End 20211207 IDCO Episode Statistic Total Count 0 IDCO Episode Statistic Total Date Time Start 20211112 IDCO Episode Statistic Total Date Time End 20211207 IDCO Episode Statistic Type Category VF IDCO Episode Statistic Vendor Type Category VF IDCO Episode Statistic Recent Count 0 IDCO Episode Statistic Recent Date Time Start 20211128 IDCO Episode Statistic Recent Date Time End 20211207 IDCO Episode Statistic Total Count 0 IDCO Episode Statistic Total Date Time Start 20211112 IDCO Episode Statistic Total Date Time End 20211207 IDCO Therapy Statistic Recent Date Time Start 20211128 IDCO Therapy Statistic Recent Date Time End 20211207 IDCO Therapy Statistic Recent Shocks Delivered 0 IDCO Therapy Statistic Total Date Time Start 20211112 IDCO Therapy Statistic Total Date Time End 20211207 IDCO Therapy Statistic Total Shocks Delivered 1 IDCO Implantable Lead Model 3501 IDCO Implantable Lead Serial Number [id number] IDCO Implantable Lead Manager Architecture [place] [employer] IDCO Implantable Lead Location Other IDCO Implantable Lead Location Detail 1 Subcutaneous IDCO Anatomical Region Laterality Modality Other 12/07/2021 11:5 5 AM EST Physician Cardiology IMPLANTABLE CARD IAC DEVICE documented in this encounter Visit Diagnoses Not on filedocumented in this encounter Care Teams Crop Ranch Hand Relationship Specialty Start Date End Date Kenia Lawrence, MILLINERY WORKER [address] [place] [address] PCP - General Family Medicine 10/10/21 05/20/22 documented as of this encounter
--- OUTSIDE RECORDS SUMMARY | 2024-09-20 11:09 | XMS_ITS | Encounter Summary ---
Author Organization [facility] Address [facility] [place] [address] Care Team Providers Care Recycling Operator Name Role Phone Kenia Lawrence ADRIAN Primary Care Provider +1- [phone] Encounter Details Date Type Department Care Team (Late st Contact Info) Description 01/02/2022 External Results Obstetrics [place] [phone] Romana Torres MD [facility] DR OBSTETRICS [place] [address] Social History Tobacco Use Types Packs/Day Years [...] AM EST Routine Obstetrics [place] [address] Emili Cabrera MD [facility] MATERNAL [place] [address] 09/26/2024 6:[address] [facility] [place] [address] 10/16/2024 [place] [address] Dudley Aguilar MD [facility] OBSTETRICS [place] [address] 11/08/2024 10:00 AM EST Hospital Encounter Non[place] [phone] Arrived documented as of this encounter Procedures Procedure Name Priority Date/Time Associated Diagnosis Comments BETA HCG, QUANTITATIVE Routine 12/23/2021 9:36 AM EST documented in this encounter Results * Beta HCG, quantitative (12/23/2021 9:36 AM EST) Beta Human Chorionic Gonadotropin, Quantitative 25,234 EXTERNAL LAB Blood 12/23/2021 9:36 AM EST Historical Provider CHEMISTRY ORDERAB LES EXTERNAL LAB documented in this encounter Visit Diagnoses Not on filedocumented in this encounter Care Teams Recycling Operator Relationship Specialty Start Date End Date Kenia Lawrence, SEASONAL TAX PREPARER [address] [place] [address] PCP - General Family Medicine 10/10/21 05/20/22 documented as of this encounter
--- OUTSIDE RECORDS SUMMARY | 2024-09-20 11:09 | XMS_ITS | Encounter Summary ---
Author Organization [facility] [place] [address] Care Team Providers Care Doula Name Role Phone Kenia Lawrence APRN Primary Care Provider +1- [phone] Encounter Details Date Type Department Care Team (Late st Contact Info) Description 12/19/2021 External Results Obstetrics [place] [address] Carey Ibarra, RN Social History Tobacco Use [...] AM EST Routine Obstetrics [place] [address] Emili Cabrera MD [facility] [place]NAL [place] [address] 09/26/2024 6:00 PM EST Appointment [facility] [place] [phone] 10/16/2024 [place] [address] Dudley Aguilar MD [facility] DR OBSTETRICS [place] [address] 11/08/2024 10:00 AM EST Hospital Encounter Non-[place] [address] Arrived documented as of this encounter Procedures Procedure Name Priority Date/Time Associated Diagnosis Comments BETA HCG, QUANTITATIVE Routine 12/19/2021 documented in this encounter Results * Beta HCG, quantitative (12/19/2021) Beta Human Chorionic Gonadotropin, Quantitative [facility] Blood Historical Provider CHEMISTRY ORDERAB LES [address] [phone] documented in this encounter Visit Diagnoses Not on filedocumented in this encounter Care Teams Doula Relationship Specialty Start Date End Date Kenia Lawrence APRN [address] [place] [address] PCP - General Family Medicine 10/10/21 05/20/22 documented as of this encounter
--- OUTSIDE RECORDS SUMMARY | 2024-09-20 11:09 | XMS_ITS | Encounter Summary ---
Author Organization [facility] [place] [address] Care Team Providers Care Paper Products Machine Operator Name Role Phone MelindaKenia ford ADRIAN Primary Care Provider +1- [phone] Encounter Details Date Type Department Care Team (Late st Contact Info) Description 12/20/2021 Telephone Obstetrics [place] [phone] Yolanda Humphrey, RN Social History Tobacco Use [...] Telephone Encounter - Yolanda Humphrey RN - 12/20/2021 4:20 PM EST Called to patient re: heartburn and nausea Patient is 6w0d GA Hx: witnessed cardiac arrrest on 11/04 with implantable defib in place. Patient calling with c/o continued pelvic cramping, nausea, and heart burn. Patient states she is really nauseous today. She reports heartburn x 3 days that is in her chest and going up her throat.She reports sometimes feels it in shoulders. Advised her of safe OTC medications she can try for nausea and heartburn. Patient agrees to try these. PAtient states she has Maalox/lidocaine mixture at home that she is going to try for heartburn relief (Ok'd by Dr. Torres). She denies any chest pain or SOB at this time. I advised patient that if heartburn does not improve with this she should report to ED for evaluation. Patient agrees to this. documented in this encounter Plan of Treatment Upcoming Encounters Date Type Department Care Team (Late st Contact Info) Description 09/21/2024 8:15 AM EST Routine Obstetrics [place] [address] Emili Cabrera MD [facility] [place] [address] 09/26/2024 6:00 PM EST Appointment [facility] [place] [address] 10/16/2024 Hospital [place] [address] Dudley Aguilar MD [facility] DR OBST[place] [address] 11/08/2024 10:00 AM EST Hospital Encounter Non-[place] [phone] Arrived documented as of this encounter Visit Diagnoses Not on filedocumented in this encounter Care Teams Paper Products Machine Operator Relationship Specialty Start Date End Date Kenia Lawrence APRN [address] [place] [address] PCP - General Family Medicine 10/10/21 05/20/22 documented as of this encounter
--- OUTSIDE RECORDS SUMMARY | 2024-09-20 11:09 | XMS_ITS | Encounter Summary ---
Author Organization [facility] [place] [address] Care Team Providers Care Weight Shifter Name Role Phone Kenia Lawrence ADRIAN Primary Care Provider +1- [phone] Encounter Details Date Type Department Care Team (Late st Contact Info) Description 12/12/2021 Orders Only Obstetrics [place] [phone] Yolanda Humphrey RN , unspecified gestational age Social History Tobacco [...] AM EST Routine Obstetrics [place] [phone] Emili Cabrera MD [facility] [place] [address] 09/26/2024 6:00 PM EST Appointment [facility] [place] [phone] 10/16/2024 [place] [phone] Dudley Aguilar MD [facility] DR OBSTET[place] [address] 11/08/2024 10:00 AM EST Hospital Encounter [place] [phone] Arrived documented as of this encounter Visit Diagnoses Diagnosis , unspecified gestational age documented in this encounter Care Teams Weight Shifter Relationship Specialty Start Date End Date Kenia Lawrence APRN [address] [place] [address] PCP - General Family Medicine 10/10/21 05/20/22 documented as of this encounter
--- OUTSIDE RECORDS SUMMARY | 2024-09-20 11:09 | XMS_ITS | Encounter Summary ---
Author Organization [facility]ly [facility] [place] [address] Care Team Providers Care Dry Cell Assembly Machine Tender Name Role Phone Melinda, Kenia Marilin CAMPBELL Primary Care Provider +1- [phone] Reason for Referral * Diagnostic Test (Routine) - Closed Specialty Diagnoses / Procedures Referred By Nellie t Referred To Contact Radiology Diagnoses Angina pectoris with documented spasm Procedures CT Angiogram Coronary Arteries Ej Zurita MD [facility] [place] [address] [facility] [place] [address] Referral ID Status Reason Start Date Expiration Date V isits Requested Visits Authorized [id number] Closed Specialty Service Requested 01/01/2022 07/04/2023 1 1 * Consultation (Routine) - Closed Specialty Diagnoses / Procedures Referred By Nellie mckeon Referred To Contact Primary Care Diagnoses Angina pectoris with documented spasm Ej Zurita MD [facility] [place] [address] [facility] [place] [address] Referral ID Status Reason Start Date Expiration Date V isits Requested Visits Authorized [id number] Closed Consult, Test & Treat 01/01/2022 01/01/2023 1 1 Encounter Details Date Type Department Care Team (Late st Contact Info) Description 01/01/2022 9:30 AM EDT Office Visit Cardiology at [address] [address] Ej Zurita MD [facility] [place] [address] Angina pectoris with documented spasm Social History [...] Time Taken Comments Blood Pressure 133/76 01/01/2022 9:30 AM EDT Pulse 94 01/01/2022 9:30 AM EDT Temperature - - Respiratory Rate - - Oxygen Saturation 100% 01/01/2022 9:30 AM EDT Inhaled Oxygen Concentration - - Weight 73 kg (161 lb) 01/01/2022 9:30 AM EDT Height 162.6 cm (5' 4) 01/01/2022 9:30 AM EDT Body Mass Index 27.64 01/01/2022 9:30 AM EDT documented in this encounter Patient Instructions * Patient Instructions* Ej Zurita MD - 01/01/2022 10:09 AM EDT After Aniya's first visit I have been in contact with Romana Torres from [facility] and have also reviewedher case with my partner Kaylen Matosb as well as a colleague who is a CardioObstetrics attending from [facility] in [place]. Aniya's situation is unique and there is no literature or guidelines available to determine exactly what the risk for continued is. The risk of maternal mortality () is significantly increased compared to a normal . The risk of maternal adverse event (ICD shocks, hospitalization, rhythm changes, heart failure, chest pain etc) is 20-30%. The safest thing for your physical health is not being . Being that you are and that you prefer not to terminate the at the present time, we are going to do our best to getyou through this with medications and frequent monitoring. What we are doing to decrease the risk of these things happening in or out of : The most important thing Aniya can do is stop smoking. This is her #1 risk factor for recurrent vasospasm. The other medication treating vasospasm is amlodipine 5mg twice a day. The new medication I am recommending for chest pain is isosorbide mononitrate 1/2 tablet daily. Please call [phone] option 3 or write in using myDH for new problems or symptoms. documented in this encounter Progress Notes * Ej Zurita MD - 01/01/2022 9:30 AM EDT Images from the original note [...] 1 year; sleep study done for snoring 8 weeks . History: The patient was hospitalized 11/04-. She had [...] And was counseled extensively to quit smoking. Today she comes with her amanda Root and daughter Cindi. She continues to have occasional midsternal chest pain radiating up to her bilateral neck and over into her shoulders. This pain continues to be nitrate responsive. She estimates she is using sublingual nitroglycerin 3-4 times weekly at this point. Her blood pressure improved to 133/76 today. She did not notice any change to her dizziness when we decreased her amlodipine from 10 to 5 mg daily, and in fact, the decrease made her nervous and she continued to take 5 mg in the evening for a total daily dose of 10 mg anyway. Today she is back and I had a long conversation about her cardiovascular risk for continued . There was some confusion after initial visit about the need for termination and she was quite upset by this confusion. Since both she and Dk continue to smoke I spent a significant amount of time counseling her nicotine is a trigger for vasospasm in the context of and recent cardiac arrest it is in her best interest to completely avoid nicotine. We increased her amlodipine and also put her on a half daily dose of a long-acting nitrate to try to ameliorate residual. The chest pain. I explained to her the providers that I have spoken to her about her case including all her inpatient providers, her cupola man, my cardio- ob colleague, and another cardio-obstetric specialist in [place]. They were relieved to hear that this communication had occurred between visits. Dk accompanied Aniya due to difficulty with her remembering the details of her medical visits and his desire to be fully informed about the risks of this . We reviewed her hospitalization and the etiology of vasospasm. We reviewed triggers and alleviating factors. We reviewed her medications and most importantly we reviewed in great detail her risk of mortality, ICD shocks, ventricular arrhythmias, hospitalization for chest pain, heart failure, and other adverse cardiovascular events. Symptoms: She reports that she actually hasn't been feeling right for the past couple of years. Hersymptoms include dizziness, low energy, fatigue, and midsternal chest burning that radiates to the shoulders and around to the back. Burning is associated with coughing/bringing phlegm, sweating, andshortness of breath. No syncope. Endoscopy completed due to concern for GERD. Pathology normal. Still takes pepcid. Gets burning back when she doesn't take them. Her symptoms include dizziness, low energy, fatigue, and midsternal chest burning that radiates to the shoulders and around to the back. Burning is associated with coughing/bringing phlegm, sweating,and shortness of breath. No syncope. OB history: Aniya has 3 children but only lives with one of them intermittently. ??Her first child lives withHeather's mother and a second child lives with her other sister. ??Aniya's mother states that Aniya has been struggling with her bipolar for a long time and has not been able to live with all 3 children due to her bipolar, anxiety and depression issues. ??To mother's knowledge, Aniya has not been engaged in any recreational drugs. ??Aniya has a history of 1 miscarriage. ?? FH: There is no known cardiac history in the patient's first-degree relatives, however, Shannon (Aniya's mother) has a female cousin who at [...] Outpatient Medications Medication Sig Dispense Refill ??? Hydrocortisone 0.5 % Lotion Every 12 hours. ??? diclofenac (Voltaren) 1 % Gel APPLY A QUARTER SIZED AMOUNT TO PAINFUL AREA ON CHEST TWO TIMES ADAY FOR 14 DAYS ??? famotidine (Pepcid) 20 mg Tablet Take 1 tablet by mouth 2 times daily (before meals). Substitute with OTC as needed 60 tablet 0 ??? fluticasone propionate (Flonase) 50 mcg/actuation [place], Suspension 1 spray by Each Nare route [...] by mouth as needed. ??? amLODIPine (Norvasc) 10 mg Tablet Take 0.5 tablets by mouth 2 times daily. 90 tablet 3 ??? isosorbide mononitrate CR (Imdur) 30 mg Tablet Sustained Release 24 hr Take 0.5 tablets by mouth daily. 90 tablet 3 No current facility-administered medications for this visit. ROS: 11 point ros either negative or per HPI Objective: Patient Vitals for the past 24 hrs: Pulse BP SpO2 01/01/22 0930 94 133/76 100 % Gen: pleasant female in NAD [...] 7068 hours. The ASCVD Risk score (Jolanta FERNANDEZ Jr., et al., 2013) failed to [...] vasospasm. No obstructive CAD in LAD or LCx, however the RCA was not injected. No recurrent ventricular arrhythmias on device interrogation and no evidence of myopathy by TTE. LVEF normal with no regional wall motion abnormalities. After Aniya's first visit I have been in contact with Romana Torres from [facility] and have also reviewedher case with my partner Kaylen Brasher as well as a colleague who is a CardioObstetrics attending from [facility]. Aniya's situation is unique and there is no literature or guidelines available to determine exactly what to do in this scenario. 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 After Aniya's first visit I have been in contact with Romana Torres from [facility] and have also reviewed her case with my partner Kaylen Brasher as well as a colleague who is a CardioObstetrics attending from [facility] in [place]. In reviewing the cath images with our colleague in [place], the possibility of type II scad was raised, however, if scad were present we would expect to have regional wall motion abnormality on echocardiogram. Cardiac MRI would have been helpful to evaluate for infarct pattern of ischemia or edema but would not differentiate the cause of ischemia (scad or spasm). There is an appar ent history of cocaine and heroin use, however, tox screen on admission was positive only for benzodiazepines. Coronary CTA will be a useful study to evaluate for RCA disease. Risk assessment: mWHO III for Ventricular arrhythmia-maternal cardiac event rate (largely CHF or arrhythmia) of 19-27% and significantly increased mortality. Carpreg 3- 15% incidence of cardiac events expected Aniya does not have an absolute contraindication to despite the fact that her pregnancyis high risk. The most important thing she can do is stop smoking as this is her #1 risk factor forrecurrent vasospasm and VT/VF. I wrote out the following information regarding risk assessment for Kaylee to take home and review: The risk of maternal mortality () is significantly increased compared to a normal . The risk of maternal adverse event (ICD shocks, hospitalization, rhythm changes, heart failure, chest pain etc) is 20-30%. The safest thing for your physical health is not being . Being that you are and that you prefer not to terminate the at the present time, we are going to do our best to getyou through this with medications and frequent monitoring. What we are doing to decrease the risk of these things happening in or out of : The most important thing Aniya can do is stop smoking. This is her #1 risk factor for recurrent vasospasm. The other medication treating vasospasm is amlodipine 5mg twice a day. The new medication I am recommending for chest pain is isosorbide mononitrate 1/2 tablet daily. Please call [phone] option 3 or write in using myDH for new problems or symptoms. #Vasospasm: -Smoking cessation strongly recommended for her entire household. Referred to smoking cessation. -Repeat TTE for regional wall motion and function in the second trimester -Renal artery ultrasound to evaluate for FMD-looking to exclude type II SCAD by finding pathology that is more typically associated with SCAD than vasospasm (consider CTA renal arteries when no longer ) -Coronary CTA to evaluate RCA patency in the second trimester after most of organogensis is complete. There are no Qs on her EKG in the inferior distribution and no inferior WMA to suggest inferior ischemia, but this will provide situational awareness for chest pain. -Continue amlodipine 5mg bid -Add isosorbide mononitrate 15mg daily -Continue SLN prn chest discomfort. Esophageal spasm remains in the differential and could be investigated in the future. Will consider GI referral pending clinical course. -? Restarting aspirin in the second trimester for pre-eclampsia [...] maternal health should be rediscussed. #Delivery planning: -Will be discussed at cardioobstetric team meeting 01/09/2022 -When she delivers, we need to have a device python programmer ready in anticipation of (cauterization may interfere with ICD sensing). Return in about 6 weeks (around 02/12/2022) for In Person. after coronary CTA. Cardio-obstetrics follow up: Bimonthly or monthly during Ej Zurita MD 01/01/2022 1:30 PM Thank you for the opportunity to [...] ?referring and communicating with other health animal care taker (when not separately reported) ?documenting clinical information in the electronic or other health record ?independently interpreting results (not separately reported) and communicating results to the patient/family/caregiver ?care coordination (not separately reported) documented in this encounter Plan of Treatment Upcoming Encounters Date Type Department Care Team (Late st Contact Info) Description 09/21/2024 8:15 AM EST Routine Obstetrics [place] [address] Emili Cabrera MD [facility] [place] [address] 09/26/2024 6:00 PM EST Appointment [facility] [place] [address] 10/16/2024 Hospital Encounter [facility] [place] [address] Dudley Aguilar MD [facility] OBSTETR[place] [address] 11/08/2024 10:00 AM EST Hospital Encounter Non-Invasive Cardiology Lab [facility] [place] [phone] Arrived Scheduled Referrals Name Type Priority Associated Diagnoses Orde r Schedule Referral to Smoking Cessation Program Outpatient Referral Routine Angina pectoris with documented spasm Ordered: 01/01/2022 documented as of this encounter Results * CT Angiogram Coronary [...] who have questions please contact the health hospice care consultant that requested your imaging first. ? Narrative [...] the calcium score calculator). Reference: Kael RL, Chacon H, Juliana R, et al. ??Distribution of [...] of the calcium scorecalculator). Reference: Kael RL, Oswaldo H, Juliana R, et al. ??Distribution ofcoronary [...] patients who have questions please contactthe health hospice care consultant that requested your imaging first. Electronically signed by: Elena Venegas MD, [facility] ([phone]), at 01/23/2022 1:43 PM Ej Zurita MD IMG CT ORDERABL ES * Basic Metabolic Panel (non-fasting) (01/16/2022 3:47 PM EDT) [facility] Signature Glucose 83 65 - 199 mg/dL [facility] Comment:Diabetes: >=200 mg/d L plus symptoms Blood Urea Nitrogen 10 8 - 18 mg/dL [facility] Creatinine 0.81 0.70 - 1.20 mg/dL [facility] Sodium 137 135 - 145 mmol/L [facility] Potassium 3.9 3.5 - 5.0 mmol/L [facility] Comment: Please note: ??Patients with WBC >100,000 may have falsely elevated Potassium levels. ??For accurate Potassium quantification in these patients send serum separator tube (gold top) for subsequent determinations. ??Contact the Clinical Chemistry Laboratory if there are any questions. Chloride 100 98 - 107 mmol/L [facility] Carbon Dioxide 23 22 - 31 mmol/L [facility] Anion Gap 14 5 - 15 mmol/L [facility] Calcium 9.4 8.5 - 10.5 mg/dL [facility] Est Glomerular Filtration Rate 93 >=60 mL/min/1. 73 m?? [facility] Comment: This patient? 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
--- OUTSIDE RECORDS SUMMARY | 2024-09-20 11:09 | XMS_ITS | Encounter Summary ---
Author Organization [facility] Address [facility] [place] [address] Care Team Providers Care Student Services Vice President Name Role Phone Kenia Lawrence ADRIAN Primary Care Provider +1- [phone] Encounter Details Date Type Department Care Team (Latest Contact Info) Description 01/03/2022 1:15 PM EDT - 01/03/2022 11:59 PM EDT Hospital Encounter [place] [address] [facility] DR OBSTETRICS [place] [address] , unspecified gestational age Discharge Disposition: Home [...] End Date fluticasone propionate (Flonase) 50 mcg/actuation [place], SuspensionIndications: allergic rhinitis 1 spray by Each [...] AM EST Routine Obstetrics [place] [phone] [facility] [place]NAL [place] [address] 09/26/2024 6:[address] [facility] [place] [address] 10/16/2024 Hospital [place] [address] [facility] OBSTETRICS [place] [address] 11/08/2024 10:00 AM EST Hospital Encounter Non-[place] [address] Arrived documented as of this encounter Procedures Procedure Name Priority Date/Time Associated Diagnosis Comments US OB TRANSVAGINAL Routine 01/03/2022 1: 40 PM EDT , unspecified gestational age documented in this [...] have questions, please contact the health healthcare marketer that requested your imaging first. ?Willow Childers, Staff Physician Electronically Signed Final Report ?? 01/03/2022 01:47 pm Narrative 01/03/2022 1:47 PM EDT OBSTETRICS REPORT ?(Signed Final 01/03/2022 01:47 pm) PATIENT INFO: ID #: ? [id number] ?: ??[birth year] (36 yrs)(F) Name: ? JOSE JUAN LUQUE ? Visit Date: 01/03/2022 01:20 pm PERFORMED BY: Performed By: ? Faiza Thakkar RDMS Attending: ?Liseth LOUISE, Willow Lorenzo Resident: ? Darien Nava MD Referred By: ?Yudi OLIVEIRA Location: ? [place] SERVICE(S) PROVIDED: [facility] - Viability -Transvaginal - [id number] ? [id number] INDICATIONS: 8 weeks gestation of ? Z3A.08 viability; dating; h/o [place] TECHNIQUE/SCAN QUALITY: Technique: ?? Transducer ID#: 21 [...] 01/03/2022 01:47 pm) PATIENT INFO: ID #: [id number] : [birth year] (36 yrs)(F) Name: JOSE JUAN LUQUE Visit Date: 01/03/2022 01:20 pm PERFORMED BY: Performed By: Faiza Thakkar RDMS Attending: Willow Childers MD Resident: Darien Nava MD Referred By: Yudi OLIVEIRA Location: [place] SERVICE(S) PROVIDED: [facility]OB[facility] - Viability -Transvaginal - [id number] INDICATIONS: 8 weeks gestation of Z3A.08 viability; dating; h/o VT TECHNIQUE/SCAN QUALITY: Technique: Transducer ID#: 21 VITAL [...] have questions, please contact the health healthcare marketer that requested your imaging first. Willow Childers, Staff Physician Electronically Signed Final Report 01/03/2022 01:47 pm E Luz Oliveira MD [facility] OB ORDERAB LES documented in this encounter Visit Diagnoses Diagnosis , unspecified gestational age documented in this encounter Care Teams Student Services Vice President Relationship Specialty Start Date End Date Kenia Lawrence APRN [address] [place] [address] PCP - General Family Medicine 10/10/21 05/20/22 documented as of this encounter
--- OUTSIDE RECORDS SUMMARY | 2024-09-20 11:09 | XMS_ITS | Encounter Summary ---
Author Organization [facility] Address [facility] [place] [address] Care Team Providers Care Manufacturing Design Engineer Name Role Phone Kenia Lawrence APRN Primary Care Provider +1- [phone] Encounter Details Date Type Department Care Team (Late st Contact Info) Description 12/07/2021 Interpretation Only [address] [phone] Kenia Lawrence [place] [address] [place] [address] Social History Tobacco Use Types Packs/Day Years [...] AM EST Routine Obstetrics [place] [address] Emili Cabrera MD [facility] MATERNAL [place] [address] 09/26/2024 6:00 PM EST Appointment [facility] [place] [address] 10/16/2024 [place] [address] Dudley Aguilar MD [facility] DR OBSTETRICS [place] [address] 11/08/2024 10:00 AM EST Hospital Encounter Non-Invasive [place] [address] Arrived documented as of this encounter Procedures Procedure Name Priority Date/Time Associated Diagnosis Comments US ABDOMEN LIMITED Routine 12/07/2021 10 :45 AM EST documented in this encounter Results * US Abdomen Limited (12/07/2021 10:45 AM EST) PT CLASS O RAD ADMITDTTM RAD PT RAD INFO [id number]^P RIESTLEY^AYL A RAD EXAM DESC UABDLIM^US ABDOMEN LIMITED^RIS RAD Anatomical Region Laterality Modality Abdomen Ultrasound Impressions 12/07/2021 11:01 AM EST Unremarkable ultrasound of the abdomen. Thank you for letting us participate in the care of this patient. ??If you are a health care provider and have any questions regarding this report, please contact the number below. ??For patients who have questions please contact the health child care sitter that requested your imaging first. ? Narrative 12/07/2021 11:01 AM EST EXAMINATION: US ABDOMEN LIMITED CLINICAL HISTORY: 36yo female with persistent GERD, please evaluate gallbladder. Gastroesophageal reflux disease without esophagitis. PROCEDURE: Grayscale ultrasound of the abdomen. Color Doppler was used to assist in evaluation of cystic and vascular structures. FINDINGS: The liver is not enlarged, measuring 17 cm along the cephalocaudal dimension. It is normal in echogenicity and echotexture . Doppler interrogation of the hepatic veins and portal vein demonstrates patent veins with normal direction of flow. The gallbladder is unremarkable. There is no evidence of wall thickening or cholelithiasis. No sonographic Sanders's sign was elicited. The common bile duct measures 3 mm, which is normal. The right kidney is unremarkable in appearance measuring approximately 11 cm in length. Head of the pancreas is normal. The remaining portion of the pancreas is not well seen. There is no ascites. Procedure Note Dawson Heaton MD - 12/07/2021 EXAMINATION: US ABDOMEN LIMITED CLINICAL HISTORY: 36yo female with persistent GERD, please evaluategallbladder. Gastroesophageal reflux disease without esophagitis. PROCEDURE: Grayscale ultrasound of the abdomen. Color Doppler was used toassist in evaluation of cystic and vascular structures. FINDINGS: The liver is not enlarged, measuring 17 cm along thecephalocaudal dimension. It is normal in echogenicity and echotexture . Dopplerinterrogation of the hepatic veins and portal vein demonstrates patent veins withnormal direction of flow. The gallbladder is unremarkable. There is no evidenceof wall thickening or cholelithiasis. No sonographic Sanders's sign was elicited.The common bile duct measures 3 mm, which is normal. The right kidney is unremarkable in appearance measuring approximately 11cm in length. Head of the pancreas is normal. The remaining portion of thepancreas is not well seen. There is no ascites. IMPRESSION Unremarkable ultrasound of the abdomen. Thank you for letting us participate in the care of this patient. If youare a health care provider and have any questions regarding this report,please contact the number below. For patients who have questions please contactthe health child care sitter that requested your imaging first. Kenia Lawrence APRN IMG US GEN ORDERAB LES documented in this encounter Visit Diagnoses Not on filedocumented in this encounter Care Teams Manufacturing Design Engineer Relationship Specialty Start Date End Date Kenia Lawrence APRN [address] [place] [address] PCP - General Family Medicine 10/10/21 05/20/22 documented as of this encounter
--- OUTSIDE RECORDS SUMMARY | 2024-09-20 11:09 | XMS_ITS | Encounter Summary ---
Author Organization [facility] Address [facility] [place] [address] Care Team Providers Care Inspector Packer Glass Container Name Role Phone Kenia Lawrence ADRIAN Primary Care Provider +1- [phone] Encounter Details Date Type Department Care Team (Late st Contact Info) Description 12/18/2021 Orders Only Cardiology at [address] [address] Social History Tobacco Use Types [...] AM EST Routine Obstetrics [place] [address] Emili Cabrera MD [facility] [place] [address] 09/26/2024 6:00 PM EST Appointment [place] [address] 10/16/2024 [facility] [place] [address] Dudley Aguilar MD [facility] DR OBSTETRICS [place] [address] 11/08/2024 10:00 AM EST Hospital Encounter Non[place] [address] Arrived documented as of this encounter Procedures Procedure Name Priority Date/Time Associated Diagnosis Comments CARDIAC DEVICE CHECK - REMOTE PATIENT INITIATED Routine 12/18/2021 7:48 AM EST documented in this encounter Results * Cardiac device check - Remote Patient Initiated (12/18/2021 7:48 AM EST) Pathologist [facility] [place] Implantable Pulse Generator Type Defibrillator IDCO Implantable Pulse Generator Model A219 IDCO Implantable Pulse Generator Serial Number [id number] IDCO Implantable Pulse Generator Instructor Hairspring [employer] IDCO Implantable Pulse Generator Implant Date 20211112 IDCO Date Time Interrogation Session IDCO Type Interrogation Session Remote Patient Initiated IDCO Clinic Name [facility] IDCO Battery Date Time of Measurements [...] Model 3501 IDCO Implantable Lead Serial Number [id number] IDCO Implantable Lead Instructor Hairspring [employer] IDCO Implantable Lead Location Other IDCO Implantable Lead Location Detail 1 Subcutaneous IDCO Anatomical Region Laterality Modality Other 12/18/2021 7:48 AM EST Physician Cardiology IMPLANTABLE CARD IAC DEVICE documented in this encounter Visit Diagnoses Not on filedocumented in this encounter Care Teams Inspector Packer Glass Container Relationship Specialty Start Date End Date Kenia Lawrence, BOBBIN STRIPPER [address] [place] [address] PCP - General Family Medicine 10/10/21 05/20/22 documented as of this encounter
--- OUTSIDE RECORDS SUMMARY | 2024-09-20 11:09 | XMS_ITS | Encounter Summary ---
Author Organization [facility] Address [facility] [place] [address] Care Team Providers Care Rehab Technician Name Role Phone Kenia Lawrence APRN Primary Care Provider +1- [phone] Encounter Details Date Type Department Care Team (Late st Contact Info) Description 12/06/2021 Interpretation Only [address] [address] Kenia Lawrence APR[place] [address] [place] [address] Social History Tobacco Use Types Packs/Day Years [...] AM EST Routine Obstetrics [place] [address] Emili Cabrera MD [facility] MATERNAL [place] [address] 09/26/2024 6:00 PM EST Appointment [facility] [place] [address] 10/16/2024 [place] [address] Dudley Aguilar MD [facility] DR OBSTETRICS [place] [address] 11/08/2024 10:00 AM EST Hospital Encounter [place] [address] Arrived documented as of this encounter Procedures Procedure Name Priority Date/Time Associated Diagnosis Comments US TRANSVAGINAL NON OB Routine 12/06/2021 2:59 PM EST documented in this encounter Results * US Transvaginal Non OB (12/06/2021 2:59 PM EST) PT CLASS O RAD ADMITDTTM RAD PT RAD INFO [id number]^P RIESTLEY^AYL A RAD EXAM DESC UTV^US TRANSVAGINAL ^RIS RAD Anatomical Region Laterality Modality Ultrasound Addenda Addendum by Dinh Becerril MD on 12/06/2021 3:52 PM EST --------ADDENDUM #1-------- The Workflow Coordinator spoke with Angie Crawford RN on 12/06/2021 3:21 PM to relay the results. Thank you for letting us participate in the care of this patient. ??If you are a health care provider and have any questions regarding this report, please contact the number below. ??For patients who have questions please contact the health acute care nurse practitioner that requested your imaging first. ? Electronically signed by: Dinh Becerril MD, [facility] ([phone]), at 12/06/2021 3:47 PM --------ORIGINAL REPORT -------- EXAMINATION: US TRANSVAGINAL CLINICAL HISTORY: RLQ abdominal pain. ??36yo female with RLQ pain, recently positive HCG, please eval for etopic. TECHNIQUE: Transvaginal ultrasound imaging of the pelvis was performed COMPARISON: None FINDINGS: Uterus is normal in size. Endometrial thickness is normal. There is no evident gestational sac. Both ovaries are normal in appearance. There is a left-sided dominant follicle. No evident cystic adnexal mass on the right or left. There is no free fluid within the pelvic cul-de-sac. IMPRESSION: 1. No evident intrauterine . This may or may not be expected, depending on quantitative beta hCG. 2. There is no evidence of ectopic . However, this examination was performed remotely, with no ability to real-time evaluate this examination and I cannot be certain that there is not an ectopic in this case. In addition, the lack of a beta hCG makes definitive characterization impossible. This patient needs close interval follow-up with ultrasound and/or serial beta hCG to ultimately determine the location of this . Thank you for letting us participate in the care of this patient. ??If you are a health care provider and have any questions regarding this report, please contact the number below. ??For patients who have questions please contact the health acute care nurse practitioner that requested your imaging first. ? Electronically signed by: Dinh Becerril MD, [facility] ([phone]), at 12/06/2021 3:05 PM Addendum by Dinh Becerril MD on 12/06/2021 3:27 PM EST --------ADDENDUM #1-------- The Workflow Coordinator spoke with Angie Crawford RN on 12/06/2021 3:21 PM to relay the results. --------ORIGINAL REPORT -------- EXAMINATION: US TRANSVAGINAL CLINICAL HISTORY: RLQ abdominal pain. ??36yo female with RLQ pain, recently positive HCG, please eval for etopic. TECHNIQUE: Transvaginal ultrasound imaging of the pelvis was performed COMPARISON: None FINDINGS: Uterus is normal in size. Endometrial thickness is normal. There is no evident gestational sac. Both ovaries are normal in appearance. There is a left-sided dominant follicle. No evident cystic adnexal mass on the right or left. There is no free fluid within the pelvic cul-de-sac. IMPRESSION: 1. No evident intrauterine . This may or may not be expected, depending on quantitative beta hCG. 2. There is no evidence of ectopic . However, this examination was performed remotely, with no ability to real-time evaluate this examination and I cannot be certain that there is not an ectopic in this case. In addition, the lack of a beta hCG makes definitive characterization impossible. This patient needs close interval follow-up with ultrasound and/or serial beta hCG to ultimately determine the location of this . Thank you for letting us participate in the care of this patient. ??If you are a health care provider and have any questions regarding this report, please contact the number below. ??For patients who have questions please contact the health acute care nurse practitioner that requested your imaging first. ? Electronically signed by: Dinh Becerril MD, [facility] ([phone]), at 12/06/2021 3:05 PM Impressions 12/06/2021 3:05 PM EST 1. No evident intrauterine . This may or may not be expected, depending on quantitative beta hCG. 2. There is no evidence of ectopic . However, this examination was performed remotely, with no ability to real-time evaluate this examination and I cannot be certain that there is not an ectopic in this case. In addition, the lack of a beta hCG makes definitive characterization impossible. This patient needs close interval follow-up with ultrasound and/or serial beta hCG to ultimately determine the location of this . Thank you for letting us participate in the care of this patient. ??If you are a health care provider and have any questions regarding this report, please contact the number below. ??For patients who have questions please contact the health acute care nurse practitioner that requested your imaging first. ? Electronically signed by: [facility] ([phone]), at 12/06/2021 3:05 PM Narrative 12/06/2021 3:05 PM EST EXAMINATION: US TRANSVAGINAL CLINICAL HISTORY: RLQ abdominal pain. ??36yo female with RLQ pain, recently positive HCG, please eval for etopic. TECHNIQUE: Transvaginal ultrasound imaging of the pelvis was performed COMPARISON: None FINDINGS: Uterus is normal in size. Endometrial thickness is normal. There is no evident gestational sac. Both ovaries are normal in appearance. There is a left-sided dominant follicle. No evident cystic adnexal mass on the right or left. There is no free fluid within the pelvic cul-de-sac. Procedure Note Dinh Becerril MD - 12/06/2021 EXAMINATION: US TRANSVAGINAL CLINICAL HISTORY: RLQ abdominal pain. 36yo female with RLQ pain,recently positive HCG, please eval for etopic. TECHNIQUE: Transvaginal ultrasound imaging of the pelvis was performed COMPARISON: None FINDINGS: Uterus is normal in size. Endometrial thickness is normal. There is noevident gestational sac. Both ovaries are normal in appearance. There is a left-sided dominantfollicle. No evident cystic adnexal mass on the right or left. There is no free fluid within the pelvic cul-de-sac. IMPRESSION 1. No evident intrauterine . This may or may not be expected,depending on quantitative beta hCG. 2. There is no evidence of ectopic . However, this examinationwas performed remotely, with no ability to real-time evaluate this examinationand I cannot be certain that there is not an ectopic in this case. In addition,the lack of a beta hCG makes definitive characterization impossible. This patient needs close interval follow-up with ultrasound and/or serialbeta hCG to ultimately determine the location of this . Thank you for letting us participate in the care of this patient. If youare a health care provider and have any questions regarding this report,please contact the number below. For patients who have questions please contactthe health acute care nurse practitioner that requested your imaging first. Electronically signed by: Dinh Becerril MD, [facility]([phone]), at 12/06/2021 3:05 PM Kenia Lawrence APRN IMG US PELVIC ORDE MELISSA documented in this encounter Visit Diagnoses Not on filedocumented in this encounter Care Teams Rehab Technician Relationship Specialty Start Date End Date Kenia Lawrence APRN [address] [place] [address] PCP - General Family Medicine 10/10/21 05/20/22 documented as of this encounter
--- OUTSIDE RECORDS SUMMARY | 2024-09-20 11:10 | XMS_ITS | Encounter Summary ---
Author Organization [facility] [address] Care Team Providers Care Hospital Receptionist Name Role Phone Kenia Lawrence ADRIAN Primary Care Provider +1- [phone] Encounter Details Date Type Department Care Team (Late st Contact Info) Description 11/28/2021 Telephone Cardiology at [address] [phone] Ofe Finn, RN Social History Tobacco Use Types Packs/Day [...] Telephone Encounter - Valorie Ruiz MD - 11/28/2021 10:14 AM EST I returned Ms. Luque's call from this morning She states that she is not feeling good, has chest pain, arms hurt. I am more clammy She also cannot stop coughing. She also cannot raise her arms w/o pain (she has been examined by the EP team when she came to the ER recently and also had a CXR that I reviewed) I explained that she is coming today to see the EP nurse and will have review of her ICD. We are scheduling a CT angiogram as well. I was not sure if her symptoms were cardiac and urged her to go to Urgent Care or reach out to her PCP I also mentioned that when she calls in, our team nurse would take the call and it would be helpfulif she shared what was going on and her questions with the nurse to relay to me. She voiced understanding of this plan * Telephone Encounter - Ofe Finn, RN - 11/28/2021 8:34 AM EST Voice message from Aniya-leaving name and telephone contact number,requesting a return call from Dr Ruiz. Return call to Aniya,explained and requested she also leave a date of as well as a brief explanation for her call when leaving voice messages for our team-she voices good understanding. When asked the purpose of her call she states I want to speak with Dr Ruiz not the Nurse. This RN explained that her message would be forwarded to Dr Ruiz and that Dr Ruiz is in clinic today and will get back to her as soon as she is able. Aniya expresses good understanding and is agreeable with this plan. Discussed above with Dr Ruiz-forwarding this note as well. documented in this encounter Plan of Treatment Upcoming Encounters Date Type Department Care Team (Late st Contact Info) Description 09/21/2024 8:15 AM EST Routine Obstetrics [place] [address] Emili Cabrera MD [facility] [place] [address] 09/26/2024 6:00 PM EST Appointment [facility] [place] [address] 10/16/2024 Hospital Encounter [place] [address] Dudley Aguilar MD [facility] DR OBSTETRICS [place] [address] 11/08/2024 10:00 AM EST Hospital Encounter Non-[place] [address] Arrived documented as of this encounter Visit Diagnoses Not on filedocumented in this encounter Care Teams Hospital Receptionist Relationship Specialty Start Date End Date Kenia Lawrence, ADRIAN [address] [place] [address] PCP - General Family Medicine 10/10/21 05/20/22 documented as of this encounter
--- OUTSIDE RECORDS SUMMARY | 2024-09-20 11:10 | XMS_ITS | Encounter Summary ---
Author Organization [facility] Address [facility] [place] [address] Care Team Providers Care Card Painter Name Role Phone Kenia Lawrence ADRIAN Primary Care Provider +1- [phone] Encounter Details Date Type Department Care Team (Late st Contact Info) Description 11/28/2021 Orders Only Cardiology at [address] [phone] Social History Tobacco Use Types Packs/Day Years [...] AM EST Routine Obstetrics [place] [address] Emili Cabrera MD [facility] [place] [address] 09/26/2024 6:[address] [facility] [place] [address] 10/16/2024 Hospital [facility] [place] [address] Dudley Aguilar MD [facility] DR OBSTETRICS AND GYNECOLOGY [place] [id number] 11/08/2024 10:00 AM EST Hospital Encounter [place] [address] Arrived documented as of this encounter Procedures Procedure Name Priority Date/Time Associated Diagnosis Comments CARDIAC DEVICE CHECK - REMOTE PATIENT INITIATED Routine 11/28/2021 8:23 AM EST documented in this encounter Results * Cardiac device check - Remote Patient Initiated (11/28/2021 8:23 AM EST) [facility] Implantable Pulse Generator Type Defibrillator IDCO Implantable Pulse Generator Model A219 IDCO Implantable Pulse Generator Serial Number [id number] IDCO Implantable Pulse Generator Dry Ice Machine Operator liveBooks IDCO Implantable Pulse Generator Implant Date 20211112 IDCO Date Time Interrogation Session IDCO Type Interrogation Session Remote Patient Initiated IDCO Clinic Name [facility] IDCO Battery Date Time of [...] IDCO Episode Statistic Recent Date Time Start 20211113 IDCO Episode Statistic Recent Date Time End 20211128 IDCO Episode Statistic Total Count 0 IDCO Episode Statistic Total Date Time Start 30624652 IDCO Episode Statistic Total Date Time End 20211128 IDCO Episode Statistic Type Category VF IDCO Episode Statistic Vendor Type Category VF IDCO Episode Statistic Recent Count 0 IDCO Episode Statistic Recent Date Time Start 20211113 IDCO Episode Statistic Recent Date Time End 20211128 IDCO Episode Statistic Total Count 0 IDCO Episode Statistic Total Date Time Start 20211112 IDCO Episode Statistic Total Date Time End 20211128 IDCO Therapy Statistic Recent Date Time Start 20211113 IDCO Therapy Statistic Recent Date Time End 20211128 IDCO Therapy Statistic Recent Shocks Delivered 0 IDCO Therapy Statistic Total Date Time Start 20211112 IDCO Therapy Statistic Total Date Time End 20211128 IDCO Therapy Statistic Total Shocks Delivered 1 IDCO Implantable Lead Model 3501 IDCO Implantable Lead Serial Number [id number] IDCO Implantable Lead Dry Ice Machine Operator [employer] IDCO Implantable Lead Location Other IDCO Implantable Lead Location Detail 1 Subcutaneous IDCO Anatomical Region Laterality Modality Other 11/28/2021 8:23 AM EST Physician Cardiology IMPLANTABLE CARD IAC DEVICE documented in this encounter Visit Diagnoses Not on filedocumented in this encounter Care Teams Card Painter Relationship Specialty Start Date End Date Kenia Lawrence, FIRER ELECTRIC LOCOMOTIVE [address] [place] [address] PCP - General Family Medicine 10/10/21 05/20/22 documented as of this encounter
--- OUTSIDE RECORDS SUMMARY | 2024-09-20 11:10 | XMS_ITS | Encounter Summary ---
Author Organization [facility]ly [facility] Address [facility] [place] [address] Care Team Providers Care Sealing And Canceling Machine Operator Name Role Phone Kenia Lawrence ADRIAN Primary Care Provider +1- [phone] Encounter Details Date Type Department Care Team (Late st Contact Info) Description 12/04/2021 Orders Only Cardiology at [address] [phone] Social History Tobacco Use Types Packs/Day Years [...] AM EST Routine Obstetrics [place] [address] Emili Cabrera MD [facility] MATERNAL [place] [address] 09/26/2024 6:00 PM EST Appointment [facility] [place] [address] 10/16/2024 Hospital [facility] [place] [address] Dudley Aguilar MD [facility] DR OBSTETRICS AND GYNECOLOGY [place] [id number] 11/08/2024 10:00 AM EST Hospital Encounter [place] [address] Arrived documented as of this encounter Procedures Procedure Name Priority Date/Time Associated Diagnosis Comments CARDIAC DEVICE CHECK - REMOTE PATIENT INITIATED Routine 12/04/2021 7:33 AM EST documented in this encounter Results * Cardiac device check - Remote Patient Initiated (12/04/2021 7:33 AM EST) [facility] Implantable Pulse Generator Type Defibrillator IDCO Implantable Pulse Generator Model A219 IDCO Implantable Pulse Generator Serial Number [id number] IDCO Implantable Pulse Generator Manager Inventory [employer] IDCO Implantable Pulse Generator Implant Date 20211112 IDCO Date Time Interrogation Session IDCO Type Interrogation Session Remote Patient Initiated IDCO Clinic Name [facility] IDCO Battery Date Time of Measurements [...] IDCO Episode Statistic Recent Date Time End 20211204 IDCO Episode Statistic Total Count 0 IDCO Episode Statistic Total Date Time Start [id number] IDCO Episode Statistic Total Date Time End 20211204 IDCO Episode Statistic Type Category VF IDCO Episode Statistic Vendor Type Category VF IDCO Episode Statistic Recent Count 0 IDCO Episode Statistic Recent Date Time Start 20211128 IDCO Episode Statistic Recent Date Time End 20211204 IDCO Episode Statistic Total Count 0 IDCO Episode Statistic Total Date Time Start 20211112 IDCO Episode Statistic Total Date Time End 20211204 IDCO Therapy Statistic Recent Date Time Start 20211128 IDCO Therapy Statistic Recent Date Time End 20211204 IDCO Therapy Statistic Recent Shocks Delivered 0 IDCO Therapy Statistic Total Date Time Start 20211112 IDCO Therapy Statistic Total Date Time End 20211204 IDCO Therapy Statistic Total Shocks Delivered 1 IDCO Implantable Lead Model 3501 IDCO Implantable Lead Serial Number [id number] IDCO Implantable Lead Manager Inventory [employer] IDCO Implantable Lead Location Other IDCO Implantable Lead Location Detail 1 Subcutaneous IDCO Anatomical Region Laterality Modality Other 12/04/2021 7:33 AM EST Physician Cardiology IMPLANTABLE CARD IAC DEVICE documented in this encounter Visit Diagnoses Not on filedocumented in this encounter Care Teams Sealing And Canceling Machine Operator Relationship Specialty Start Date End Date Kenia Lawrence, SCRAP PILER [address] [place] [address] PCP - General Family Medicine 10/10/21 05/20/22 documented as of this encounter
--- OUTSIDE RECORDS SUMMARY | 2024-09-20 11:10 | XMS_ITS | Encounter Summary ---
Author Organization [facility] [place] [facility] [place] [address] Care Team Providers Care Staff Services Manager Name Role Phone MelindaKenia ford ADRIAN Primary Care Provider +1- [phone] Encounter Details Date Type Department Care Team (Late st Contact Info) Description 12/05/2021 Telephone Cardiology at [address] [phone] Ofe Finn, RN Social History Tobacco Use [...] encounter Miscellaneous Notes * Telephone Encounter - Ofe Finn RN - 12/05/2021 11:43 AM EST Voice message from Aniya requesting a return call,call returned to [phone],voice message left requesting return call with a message from her stating a time she can be reached. documented in this encounter Plan of Treatment Upcoming Encounters Date Type Department Care Team (Late st Contact Info) Description 09/21/2024 8:15 AM EST Routine Obstetrics [place] [address] Emili Cabrera MD [facility] [place] [address] 09/26/2024 6:[address] [facility] [place] [address] 10/16/2024 Hospital [place] [address] Dudley Aguilar MD [facility] DR OBSTETRICS [place] [address] 11/08/2024 10:00 AM EST Hospital Encounter [place] [address] Arrived documented as of this encounter Visit Diagnoses Not on filedocumented in this encounter Care Teams Staff Services Manager Relationship Specialty Start Date End Date Kenia Lawrence APRN [address] [place] [address] PCP - General Family Medicine 10/10/21 05/20/22 documented as of this encounter
--- OUTSIDE RECORDS SUMMARY | 2024-09-20 11:10 | XMS_ITS | Encounter Summary ---
Author Organization [facility] [place] [address] Care Team Providers Care Hearing Health Technician Name Role Phone Melinda, Kenia R ADRIAN Primary Care Provider +1- [phone] Encounter Details Date Type Department Care Team (Late st Contact Info) Description 11/26/2021 Telephone Cardiology at [address] [phone] Kenia Smith, RN Social History Tobacco Use Types Packs/Day [...] encounter Miscellaneous Notes * Telephone Encounter - Kenia Smith RN - 11/26/2021 4:17 PM EST left that Aniya was trying to reach Dr. Ruiz. Chart reviewed. Returned call, clear connection established. Aniya reports some sob today with feeling like she has to cough something up. She goes on to say this is like how her pneumonia started. Urged her to call her PCP. No other symptoms since she spokewith Dr. Myerson Assured her I would send this message on to Dr. Ruiz. Kenia Smith RN 4A Cardiology documented in this encounter Plan of Treatment Upcoming Encounters Date Type Department Care Team (Late st Contact Info) Description 09/21/2024 8:15 AM EST Routine Obstetrics [place] [address] Emili Cabrera MD [facility] [place] [address] 09/26/2024 6:00 PM EST Appointment [facility] [place] [address] 10/16/2024 [place] [address] Dudley Aguilar MD [facility] DR OBSTETRICS [place] [address] 11/08/2024 10:00 AM EST Hospital Encounter Non[place] [address] Arrived documented as of this encounter Visit Diagnoses Not on filedocumented in this encounter Care Teams Hearing Health Technician Relationship Specialty Start Date End Date Kenia Lawrence APRN [address] [place] [address] PCP - General Family Medicine 10/10/21 05/20/22 documented as of this encounter
--- OUTSIDE RECORDS SUMMARY | 2024-09-20 11:10 | XMS_ITS | Encounter Summary ---
Author Organization [facility] Address [facility] [place] [address] Care Team Providers Care Guncotton Packer Name Role Phone Kenia Lawrence ADRIAN Primary Care Provider +1- [phone] Encounter Details Date Type Department Care Team (Late st Contact Info) Description 12/04/2021 Orders Only Cardiology at [address] [phone] Social History Tobacco Use Types Packs/Day Years [...] AM EST Routine Obstetrics [place] [address] [facility] [place] [address] 09/26/2024 6:00 PM EST Appointment [facility] [place] [address] 10/16/2024 [facility] [place] [address] [facility] DR OBSTETRICS AND GYNECOLOGY [place] [phone] 11/08/2024 10:00 AM EST Hospital Encounter [place] [address] Arrived documented as of this encounter Procedures Procedure Name Priority Date/Time Associated Diagnosis Comments CARDIAC DEVICE CHECK - REMOTE PATIENT INITIATED Routine 12/04/2021 7:35 AM EST documented in this encounter Results * Cardiac device check - Remote Patient Initiated (12/04/2021 7:35 AM EST) [facility] Implantable Pulse Generator Type Defibrillator IDCO Implantable Pulse Generator Model A219 IDCO Implantable Pulse Generator Serial Number [id number] IDCO Implantable Pulse Generator Household Ch[employer] [place] IDCO Implantable Pulse Generator Implant Date 20211112 IDCO Date Time Interrogation Session IDCO Type Interrogation Session Remote Patient Initiated IDCO Clinic Name [facility] IDCO Battery Date Time of Measurements IDCO [...] IDCO Episode Statistic Total Date Time Start [id number] IDCO Episode Statistic Total Date Time End [...] Model 3501 IDCO Implantable Lead Serial Number [id number] IDCO Implantable Lead Household Chores [place] [employer] IDCO Implantable Lead Location Other IDCO Implantable Lead Location Detail 1 Subcutaneous IDCO Anatomical Region Laterality Modality Other 12/04/2021 7:35 AM EST Physician Cardiology IMPLANTABLE CARD IAC DEVICE documented in this encounter Visit Diagnoses Not on filedocumented in this encounter Care Teams Guncotton Packer Relationship Specialty Start Date End Date Kenia Lawrence, RUFFLING MACHINE OPERATOR [address] [place] [address] PCP - General Family Medicine 10/10/21 05/20/22 documented as of this encounter
--- OUTSIDE RECORDS SUMMARY | 2024-09-20 11:10 | XMS_ITS | Encounter Summary ---
Author Organization [facility] Address [facility] [place] [address] Care Team Providers Care Peat Shredder Tender Name Role Phone Kenia Lawrence ADRIAN Primary Care Provider +1- [phone] Encounter Details Date Type Department Care Team (Late st Contact Info) Description 11/19/2021 Orders Only Cardiology at [address] [phone] Social History Tobacco Use Types Packs/Day Years [...] AM EST Routine Obstetrics [place] [address] Emili Cabrera MD [facility] [place] [address] 09/26/2024 6:00 PM EST Appointment [facility] [place] [address] 10/16/2024 Hospital [facility] [place] [address] Dudley Aguilar MD [facility] DR OBSTETRICS AND GYNECOLOGY [place] [id number] 11/08/2024 10:00 AM EST Hospital Encounter [place] [address] Arrived documented as of this encounter Procedures Procedure Name Priority Date/Time Associated Diagnosis Comments CARDIAC DEVICE CHECK - REMOTE PATIENT INITIATED Routine 11/19/2021 4:28 PM EST documented in this encounter Results * Cardiac device check - Remote Patient Initiated (11/19/2021 4:28 PM EST) [facility] Implantable Pulse Generator Type Defibrillator IDCO Implantable Pulse Generator Model A219 IDCO Implantable Pulse Generator Serial Number [id number] IDCO Implantable Pulse Generator Manager Drive [employer] IDCO Implantable Pulse Generator Implant Date 20211112 IDCO Date Time Interrogation Session IDCO Type Interrogation Session Remote Patient Initiated IDCO Clinic Name [facility] IDCO Battery Date Time of Measurements IDCO [...] IDCO Episode Statistic Recent Date Time End 20211119 IDCO Episode Statistic Total Count 0 IDCO Episode Statistic Total Date Time Start [id number] IDCO Episode Statistic Total Date Time End 20211119 IDCO Episode Statistic Type Category VF IDCO Episode Statistic Vendor Type Category VF IDCO Episode Statistic Recent Count 0 IDCO Episode Statistic Recent Date Time Start 20211113 IDCO Episode Statistic Recent Date Time End 20211119 IDCO Episode Statistic Total Count 0 IDCO Episode Statistic Total Date Time Start 20211112 IDCO Episode Statistic Total Date Time End 20211119 IDCO Therapy Statistic Recent Date Time Start 20211113 IDCO Therapy Statistic Recent Date Time End 20211119 IDCO Therapy Statistic Recent Shocks Delivered 0 IDCO Therapy Statistic Total Date Time Start 20211112 IDCO Therapy Statistic Total Date Time End 20211119 IDCO Therapy Statistic Total Shocks Delivered 1 IDCO Implantable Lead Model 3501 IDCO Implantable Lead Serial Number [id number] IDCO Implantable Lead Manager Drive [employer] IDCO Implantable Lead Location Other IDCO Implantable Lead Location Detail 1 Subcutaneous IDCO Anatomical Region Laterality Modality Other 11/19/2021 4:28 PM EST Physician Cardiology IMPLANTABLE CARD IAC DEVICE documented in this encounter Visit Diagnoses Not on filedocumented in this encounter Care Teams Peat Shredder Tender Relationship Specialty Start Date End Date Kenia Lawrence, CONSULTING NETWORKING ENGINEER [address] [place] [address] PCP - General Family Medicine 10/10/21 05/20/22 documented as of this encounter
--- OUTSIDE RECORDS SUMMARY | 2024-09-20 11:10 | XMS_ITS | Encounter Summary ---
Author Organization [facility] [place] [facility] [place] [address] Care Team Providers Care Mobile Tester Name Role Phone Kenia Lawrence APRN Primary Care Provider +1- [phone] Reason for Referral * Consultation (Routine) - Closed Specialty Diagnoses / Procedures Referred By Nellie mckeon Referred To Contact Gastroenterology Diagnoses Gastroesophageal reflux disease, unspecified whether esophagitis present GERD, difficult to control symptoms, multiple medications Procedures Consult Kenia Lawrence APRN [address] [place] [address] [facility] [place] [address] [address] Referral ID Status Reason Start Date Expiration Date V isits Requested Visits Authorized [id number] Closed Consult, Test & Treat 12/06/2021 12/06/2022 1 1 Encounter Details Date Type Department Care Team (Latest Contact Info) Description 12/06/2021 Transcribe Orders [place] [address] Courtney Humphreys Gastroesophageal reflux disease, unspecified whether esophagitis present Social History Tobacco Use Types Packs/Day Years [...] AM EST Routine Obstetrics [place] [address] Emili Cabrera MD [facility] [place] [address] 09/26/2024 6:00 [place] [address] 10/16/2024 [place] [address] Dudley Aguilar MD [facility] DR OBSTETRICS [place] [address] 11/08/2024 10:00 AM EST Hospital Encounter [place] [address] Arrived Scheduled Referrals Name Type Priority Associated Diagnoses Order Schedule Referral to Gastroenterology Outpatient Referral Routine Gastroesophageal reflux disease, unspecified whether esophagitis present Ordered: 12/06/2021 documented as of this encounter Visit Diagnoses Diagnosis Gastroesophageal reflux disease, unspecified whether esophagitis present documented in this encounter Care Teams Mobile Tester Relationship Specialty Start Date End Date Kenia Lawrence APRN [address] [place] [address] PCP - General Family Medicine 10/10/21 05/20/22 documented as of this encounter
--- OUTSIDE RECORDS SUMMARY | 2024-09-20 11:10 | XMS_ITS | Encounter Summary ---
Author Organization [place] [address] Care Team Providers Care Roller Turner Name Role Phone MelindaKenia ford ADRIAN Primary Care Provider +1- [phone] Encounter Details Date Type Department Care Team (Late st Contact Info) Description 11/26/2021 Telephone Cardiology at [address] [phone] Kenia Smith, RN Social History Tobacco Use [...] Encounter - Kenia Smith RN - 11/26/2021 10:04 AM EST Vm from Aniya that she was returning Dr. Ruiz's call. Chart reviewed. Kenia mSith RN 4A Cardiology documented in this encounter Plan of Treatment Upcoming Encounters Date Type Department Care Team (Late st Contact Info) Description 09/21/2024 8:15 AM EST Routine Obstetrics [place] [address] Emili Cabrera MD [facility] [place] [address] 09/26/2024 6:00 PM EST Appointment [facility] [place] [address] 10/16/2024 [place] [address] Dudley Aguilar MD [facility] DR [place] [address] 11/08/2024 10:00 AM EST Hospital Encounter [place] [address] Arrived documented as of this encounter Visit Diagnoses Not on filedocumented in this encounter Care Teams Roller Turner Relationship Specialty Start Date End Date Kenia Lawrence APRN [address] [place] [address] PCP - General Family Medicine 10/10/21 05/20/22 documented as of this encounter
--- OUTSIDE RECORDS SUMMARY | 2024-09-20 11:10 | XMS_ITS | Encounter Summary ---
Author Organization [facility] Address [facility] [place] [address] Care Team Providers Care Correctional Casework Specialist Name Role Phone Kenia Lawrence ADRIAN Primary Care Provider +1- [phone] Encounter Details Date Type Department Care Team (Late st Contact Info) Description 11/19/2021 Orders Only Cardiology at [address] [phone] Social History Tobacco Use Types Packs/Day Years [...] EST Routine Obstetrics [place] [address] Emili Cabrera MD [facility] [place] [address] 09/26/2024 6:00 PM EST Appointment [facility] [place] [address] 10/16/2024 Hospital [facility] [place] [address] Dudley Aguilar MD [facility] DR OBSTETRICS AND GYNECOLOGY [place] [phone] 11/08/2024 10:00 AM EST Hospital Encounter Non-[place]vasive [place] [address] Arrived documented as of this encounter Procedures Procedure Name Priority Date/Time Associated Diagnosis Comments CARDIAC DEVICE CHECK - REMOTE PATIENT INITIATED Routine 11/19/2021 4:01 PM EST documented in this encounter Results * Cardiac device check - Remote Patient Initiated (11/19/2021 4:01 PM EST) [facility] Implantable Pulse Generator Type Defibrillator IDCO Implantable Pulse Generator Model A219 IDCO Implantable Pulse Generator Serial Number [id number] IDCO Implantable Pulse Generator Brand Protection Manager [employer] IDCO Implantable Pulse Generator Implant Date 20211112 IDCO Date Time Interrogation Session IDCO Type Interrogation Session Remote Patient Initiated IDCO Clinic Name [facility] IDCO Battery Date Time of [...] IDCO Episode Statistic Total Date Time Start [id number] IDCO Episode Statistic Total Date Time End [...] Model 3501 IDCO Implantable Lead Serial Number [id number] IDCO Implantable Lead Brand Protection Manager [place] [employer] IDCO Implantable Lead Location Other IDCO Implantable Lead Location Detail 1 Subcutaneous IDCO Anatomical Region Laterality Modality Other 11/19/2021 4:01 PM EST Physician Cardiology IMPLANTABLE CARD IAC DEVICE documented in this encounter Visit Diagnoses Not on filedocumented in this encounter Care Teams Correctional Casework Specialist Relationship Specialty Start Date End Date Kenia Lawrence, STONEMASON HELPER [address] [place] [address] PCP - General Family Medicine 10/10/21 05/20/22 documented as of this encounter
--- OUTSIDE RECORDS SUMMARY | 2024-09-20 11:10 | XMS_ITS | Encounter Summary ---
Author Organization [facility] Address [facility] [place] [address] Care Team Providers Care Gunite Nozzle Operator Name Role Phone Kenia Lawrence ADRIAN Primary Care Provider +1- [phone] Encounter Details Date Type Department Care Team (Late st Contact Info) Description 12/04/2021 Orders Only Cardiology at [address] [phone] Social History Tobacco Use Types Packs/Day Years [...] AM EST Routine Obstetrics [place] [address] Emili Cabrera MD [facility] [place] [address] 09/26/2024 6:00 PM EST Appointment [facility] [place] [address] 10/16/2024 Hospital [facility] [place] [address] Dudley Aguilar MD [facility] DR OBSTETRICS AND GYNECOLOGY [place] [phone] 11/08/2024 10:00 AM EST Hospital Encounter Non-[place]vasive [place] [address] Arrived documented as of this encounter Procedures Procedure Name Priority Date/Time Associated Diagnosis Comments CARDIAC DEVICE CHECK - REMOTE PATIENT INITIATED Routine 12/04/2021 7:38 AM EST documented in this encounter Results * Cardiac device check - Remote Patient Initiated (12/04/2021 7:38 AM EST) [facility] Implantable Pulse Generator Type Defibrillator IDCO Implantable Pulse Generator Model A219 IDCO Implantable Pulse Generator Serial Number [id number] IDCO Implantable Pulse Generator Finishing Range Supervisor [facility] IDCO Implantable Pulse Generator Implant Date 20211112 IDCO Date Time Interrogation Session IDCO Type Interrogation Session Remote Patient Initiated IDCO Clinic Name [facility] IDCO Battery Date Time of Measurements [...] IDCO Episode Statistic Total Date Time Start [id number] IDCO Episode Statistic Total Date Time End [...] Model 3501 IDCO Implantable Lead Serial Number [id number] IDCO Implantable Lead Finishing Range Supervisor [place] [employer] IDCO Implantable Lead Location Other IDCO Implantable Lead Location Detail 1 Subcutaneous IDCO Anatomical Region Laterality Modality Other 12/04/2021 7:38 AM EST Physician Cardiology IMPLANTABLE CARD IAC DEVICE documented in this encounter Visit Diagnoses Not on filedocumented in this encounter Care Teams Gunite Nozzle Operator Relationship Specialty Start Date End Date Kenia Lawrence, TOWER EXCAVATOR OPERATOR [address] [place] [address] PCP - General Family Medicine 10/10/21 05/20/22 documented as of this encounter
--- OUTSIDE RECORDS SUMMARY | 2024-09-20 11:10 | XMS_ITS | Encounter Summary ---
Author Organization [facility] Address [facility] [place] [address] Care Team Providers Care Utility Clerk Name Role Phone MelindaKenia ford ADRIAN Primary Care Provider +1- [phone] Encounter Details Date Type Department Care Team (Late st Contact Info) Description 11/24/2021 [place] [phone] Leila Summers MD [facility] [place] [address] Social History Tobacco Use Types Packs/Day Years [...] Miscellaneous Notes * Telephone Encounter - Leila Summers MD - 11/24/2021 8:07 AM EST Cardiology On-Call Phone Note Received page on weekend that patient is requesting a call back. Tried calling x2 but no answer. Leila Summers, PGY6 Cardiovascular Disease Fellow documented in this encounter Plan of Treatment Upcoming Encounters Date Type Department Care Team (Late st Contact Info) Description 09/21/2024 8:15 AM EST Routine Obstetrics [place] [phone] Emili Cabrera MD [facility] [place] [address] 09/26/2024 6:00 PM EST Appointment [facility] [place] [address] 10/16/2024 Hospital [place] [address] Dudley Aguilar MD [facility] DR OBSTETRICS [place] [address] 11/08/2024 10:00 AM EST Hospital Encounter Non-Invasive [place] [address] Arrived documented as of this encounter Visit Diagnoses Not on filedocumented in this encounter Care Teams Utility Clerk Relationship Specialty Start Date End Date Kenia Lawrence APRN [address] [place] [address] PCP - General Family Medicine 10/10/21 05/20/22 documented as of this encounter
--- OUTSIDE RECORDS SUMMARY | 2024-09-20 11:10 | XMS_ITS | Encounter Summary ---
Author Organization [facility] Address [facility] [place] [address] Care Team Providers Care Lather Apprentice Name Role Phone MelindaKenia ford ADRIAN Primary Care Provider +1- [phone] Encounter Details Date Type Department Care Team (Late st Contact Info) Description 11/26/2021 Notes Only Cardiology at [address] [place] [address] Valorie Ruiz MD [facility] [place] [address] Social History Tobacco Use Types Packs/Day Years [...] Progress Notes * Valorie Ruiz MD - 11/26/2021 8:51 AM ESTSummary: telephone follow up call I attempted to call Ms. Luque to follow up on my phone calls from last week. She had called in over the weekend to state that she felt her ICD vibrating however the on-call Fellow was not able to reach her (attempted to call back X 2) I was only able to leave a message. Note that she had a telephone appt with me on 11/23/21 (due to weather conditions) but when I called her she said she did not feel well and agreed to have me call her back on Friday. I did share with her that we wanted to have a CT scan (CTA) and would be scheduling that. I explained why we wanted this. I also asked how she felt and if she thought she would be OK at home. She endorsed feeling better. documented in this encounter Plan of Treatment Upcoming Encounters Date Type Department Care Team (Late st Contact Info) Description 09/21/2024 8:15 AM EST Routine Obstetrics [place] [address] Emili Cabrera MD [facility] [place] [address] 09/26/2024 6:[address] [facility] [place] [address] 10/16/2024 Hospital [place] [address] Dudley Aguilar MD [facility] DR OBSTETRICS [place] [address] 11/08/2024 10:00 AM EST Hospital Encounter Non-[place]vasive [place] [address] Arrived documented as of this encounter Visit Diagnoses Not on filedocumented in this encounter Care Teams Lather Apprentice Relationship Specialty Start Date End Date Kenia Lawrence APRN [address] [place] [address] PCP - General Family Medicine 12/22/21 8/1/22 documented as of this encounter
--- OUTSIDE RECORDS SUMMARY | 2024-09-20 11:10 | XMS_ITS | Encounter Summary ---
Author Organization [facility] Address [facility] [place] [address] Care Team Providers Care Accountancy Professor Name Role Phone MelindaKenia ford ADRIAN Primary Care Provider +1- [phone] Encounter Details Date Type Department Care Team (Late st Contact Info) Description 12/06/2021 Telephone Cardiology at [address] [place] [address] Valorie Ruiz MD [facility] [place] [address] Social History Tobacco Use Types Packs/Day Years [...] Telephone Encounter - Valorie Ruiz MD - 12/06/2021 8:06 AM ESTSummary: return of phone call --2nd attempt I again attempted to reach Ms. Luque (tried last night) to return her call. She called to ask to speak with me and left a message that she was now . I repeated my previous message stating that she should reach out to an hearing consultant and also that her would be considered high risk given her recent cardiac arrest and cardiovascular issues. I let her know that I am out of the office until next week but did want to touch base with her. I was again only able to leave a message. documented in this encounter Plan of Treatment Upcoming Encounters Date Type Department Care Team (Late st Contact Info) Description 09/21/2024 8:15 AM EST Routine Obstetrics [place] [address] Emili Cabrera MD [facility] [place] [address] 09/26/2024 6:[address] [facility] [place] [address] 10/16/2024 [place] [address] Dudley Aguilar MD [facility] DR [place] [address] 11/08/2024 10:00 AM EST Hospital Encounter Non-Invasive [place] [address] Arrived documented as of this encounter Visit Diagnoses Not on filedocumented in this encounter Care Teams Accountancy Professor Relationship Specialty Start Date End Date Kenia Lawrence APRN [address] [place] [address] PCP - General Family Medicine 10/10/21 05/20/22 documented as of this encounter
--- OUTSIDE RECORDS SUMMARY | 2024-09-20 11:10 | XMS_ITS | Encounter Summary ---
Author Organization [facility] Address [facility] [place] [address] Care Team Providers Care Rail Car Painter/Sandblaster Name Role Phone Kenia Lawrence ADRIAN Primary Care Provider +1- [phone] Encounter Details Date Type Department Care Team (Late st Contact Info) Description 11/19/2021 Orders Only Cardiology at [address] [phone] Social History Tobacco Use Types Packs/Day Years [...] AM EST Routine Obstetrics [place] [address] Emili Cabrera MD [facility] [place] [address] 09/26/2024 6:00 PM EST Appointment [facility] [place] [address] 10/16/2024 [facility] [place] [address] Dudley Aguilar MD [facility] DR OBSTETRICS AND GYNECOLOGY [place] [id number] 11/08/2024 10:00 AM EST Hospital Encounter Non-Invasive [place] [address] Arrived documented as of this encounter Procedures Procedure Name Priority Date/Time Associated Diagnosis Comments CARDIAC DEVICE CHECK - REMOTE PATIENT INITIATED Routine 11/19/2021 4:30 PM EST documented in this encounter Results * Cardiac device check - Remote Patient Initiated (11/19/2021 4:30 PM EST) [facility] Implantable Pulse Generator Type Defibrillator IDCO Implantable Pulse Generator Model A219 IDCO Implantable Pulse Generator Serial Number [id number] IDCO Implantable Pulse Generator Gis Application Developer Shweeb IDCO Implantable Pulse Generator Implant Date 20211112 [...] IDCO Episode Statistic Total Date Time Start [id number] IDCO Episode Statistic Total Date Time End [...] Model 3501 IDCO Implantable Lead Serial Number [id number] IDCO Implantable Lead Gis Application Developer [place] [employer] IDCO Implantable Lead Location Other IDCO Implantable Lead Location Detail 1 Subcutaneous IDCO Anatomical Region Laterality Modality Other 11/19/2021 4:30 PM EST Physician Cardiology IMPLANTABLE CARD IAC DEVICE documented in this encounter Visit Diagnoses Not on filedocumented in this encounter Care Teams Rail Car Painter/Sandblaster Relationship Specialty Start Date End Date Kenia Lawrence, POLISHER EYEGLASS FRAMES [address] [place] [address] PCP - General Family Medicine 10/10/21 05/20/22 documented as of this encounter
--- OUTSIDE RECORDS SUMMARY | 2024-09-20 11:10 | XMS_ITS | Encounter Summary ---
Author Organization [facility] Address [facility] [place] [address] Care Team Providers Care Valve Repairer Reclamation Name Role Phone Melinda, Kenia Marilin CAMPBELL Primary Care Provider +1- [phone] Reason for Referral * Consultation (Routine) - Canceled Specialty Diagnoses / Procedures Referred By Nellie mckeon Referred To Contact Cardiology Diagnoses Cardiac arrest Valorie Ruiz MD [facility] [place] [address] [facility] [place] [address] Referral ID Status Reason Start Date Expiration Date V isits Requested Visits Authorized [id number] Canceled Consult, Test & Treat 11/26/2021 11/26/2022 36 36 Encounter Details Date Type Department Care Team (Late st Contact Info) Description 11/26/2021 Telephone Cardiology at [address] [address] [facility] [place] [address] Social History Tobacco Use Types Packs/Day Years [...] Telephone Encounter - Valorie Ruiz MD - 11/26/2021 10:41 AM EST Order for cardiac rehab placed documented in this encounter Plan of Treatment Upcoming Encounters Date Type Department Care Team (Late st Contact Info) Description 09/21/2024 8:15 AM EST Routine Obstetrics [place] [address] Emili Cabrera MD [facility] DR MATERNAL [place] [address] 09/26/2024 6:00 PM EST [facility]ment [facility] [place] [address] 10/16/2024 [place] [address] Dudley Aguilar MD [facility] DR OBSTETRICS [place] [address] 11/08/2024 10:00 AM EST Hospital Encounter Non-[place] [address] Arrived Scheduled Referrals Name Type Priority Associated Diagnoses Orde r Schedule Referral to Cardiac Rehab Outpatient Referral Routine Cardiac arrest Ordered: 11/26/2021 documented as of this encounter Visit Diagnoses Diagnosis Cardiac arrest documented in this encounter Care Teams Valve Repairer Reclamation Relationship Specialty Start Date End Date Kenia Lawrence APRN [address] [place] [address] PCP - General Family Medicine 10/10/21 05/20/22 documented as of this encounter
--- OUTSIDE RECORDS SUMMARY | 2024-09-20 11:10 | XMS_ITS | Encounter Summary ---
Author Organization [facility] Address [facility] [place] [address] Care Team Providers Care Geospatial Program Management Officer Name Role Phone MelindaKenia ford CABLE PLACER Primary Care Provider +1- [phone] Encounter Details Date Type Department Care Team (Late st Contact Info) Description 11/24/2021 [place] [address] Timbo Mistry PA [facility] [place] [address] Social History Tobacco Use Types Packs/Day Years [...] encounter Miscellaneous Notes * Telephone Encounter - Timbo Mistry PA - 11/26/2021 9:10 AM EST Was contacted by the inspector material disposition on-call, Dr. Leila Summers, regarding patient's difficulty sending a remote download after she felt her device vibrate. I contacted the patient directly by telephone this afternoon. She does not recall any device shock or therapy. I attempted to guide her through the remote transmission process. After multiple attempts including using her telephone and Ethernet jacks, she continued to get yellow alerts signifying that there was a transmission error. I recommended that she contact [employer] directly for troubleshooting. I provided her with thetoll-free number. I reminded her that if she develops concerning symptoms including chest pain, palpitations, dyspnea, lightheadedness, near-syncope or syncope, she was recommended to go to the nearest emergency department where I informed her that they would be able to contact [employer] to have sales representative printing meet them at the emergency department to interrogate device. All questions and concerns were answered to her satisfaction and she had no other additional questions. Timbo Mistry PA-C 11/24/2021 documented in this encounter Plan of Treatment Upcoming Encounters Date Type Department Care Team (Late st Contact Info) Description 09/21/2024 8:15 AM EST Routine Obstetrics [place] [address] Emili Cabrera MD [facility] [address] [place] [address] 09/26/2024 6:00 PM EST Appointment [facility] [place] [address] 10/16/2024 [place] [address] Dudley Aguilar MD [facility] OBSTETRICS [place] [address] 11/08/2024 10:00 AM EST Hospital Encounter Non-Invasive [place] [address] Arrived documented as of this encounter Visit Diagnoses Not on filedocumented in this encounter Care Teams Geospatial Program Management Officer Relationship Specialty Start Date End Date Kenia Lawrence APRN [address] [place] [address] PCP - General Family Medicine 10/10/21 05/20/22 documented as of this encounter
--- OUTSIDE RECORDS SUMMARY | 2024-09-20 11:10 | XMS_ITS | Encounter Summary ---
Author Organization [facility] Address [facility] [place] [address] Care Team Providers Care Machine Made Shoe Unit Worker Name Role Phone MelindaKenia ford ADRIAN Primary Care Provider +1- [phone] Encounter Details Date Type Department Care Team (Late st Contact Info) Description 11/24/2021 [place] [address] Leila Summers MD [facility] [address] Social History Tobacco Use Types Packs/Day Years [...] Encounter - Leila Summers MD - 11/24/2021 11:47 AM EST Cardiology On-Call Phone Note Received call from patient reporting that she felt her defibrillator vibrate this morning. I asked her to send a remote download and that we would contact her with any concerning findings. Leila Summers, PGY6 Cardiovascular Disease Fellow documented in this encounter Plan of Treatment Upcoming Encounters Date Type Department Care Team (Late st Contact Info) Description 09/21/2024 8:15 AM EST Routine Obstetrics [place] [address] Emili Cabrera MD [facility] [place] [address] 09/26/2024 6:00 PM EST Appointment [facility] [place] [address] 10/16/2024 [place] [address] Dudley Aguilar MD [facility] DR OBSTET[place] [address] 11/08/2024 10:00 AM EST Hospital Encounter Non-Invasive [place] [address] Arrived documented as of this encounter Visit Diagnoses Not on filedocumented in this encounter Care Teams Machine Made Shoe Unit Worker Relationship Specialty Start Date End Date Kenia Lawrence APRN [address] [place] [address] PCP - General Family Medicine 10/10/21 05/20/22 documented as of this encounter
--- OUTSIDE RECORDS SUMMARY | 2024-09-20 11:10 | XMS_ITS | Encounter Summary ---
Author Organization [facility] [place] [address] Care Team Providers Care Clay Roaster Name Role Phone MelindaKenia ford ADRIAN Primary Care Provider +1- [phone] Encounter Details Date Type Department Care Team (Late st Contact Info) Description 11/23/2021 Telephone Cardiology at [address] [address] Leila Pettit, RN Social History Tobacco Use [...] Telephone Encounter - Leila Pettit RN - 11/23/2021 11:42 AM EST Received message left by [facility] nurse Zora who saw patient today. She wanted to let provider know of some concerns before patient's [facility] appt.today at 2pm ( Drs. Mathis and Sara). Per the [facility]NA nurse Pt's VS are good: HR 86, BP 138/80, O2 sat RA 95%. The main concern they have is the continued severe shoulder and arm pain that travels to her thumbs since surgery (ICD). Reference recent ED visits, ICD placement last month and discharge from [facility] yesterday ( CP, fatigue,anemia, enlarged GB). Patient is also still reportedly dizzy,anxious and has been using a NTG tablet at least daily whichis found to be a little helpful with the pain as OTC remedies have not been. The [facility]NA nurse removed Pt's left sided dsg today and found no issues at insertion site. The [facility]NA nurse was also in touch with the PCP office. Leila Daniel RNdehydrogenation operator [facility] General Team-[place] documented in this encounter Plan of Treatment Upcoming Encounters Date Type Department Care Team (Late st Contact Info) Description 09/21/2024 8:15 AM EST Routine Obstetrics [place] [address] Emili Cabrera MD [facility] DR MATERNAL [place] [address] 09/26/2024 6:[address] [facility] [place] [address] 10/16/2024 Hospital [place] [address] Dudley Aguilar MD [facility] DR OBSTETRICS [place] [address] 11/08/2024 10:00 AM EST Hospital Encounter Non[place] [address] Arrived documented as of this encounter Visit Diagnoses Not on filedocumented in this encounter Care Teams Clay Roaster Relationship Specialty Start Date End Date Kenia Lawrence APRN [address] [place], [place] [address] PCP - General Family Medicine 10/10/21 05/20/22 documented as of this encounter
--- OUTSIDE RECORDS SUMMARY | 2024-09-20 11:10 | XMS_ITS | Encounter Summary ---
Author Organization [facility] [place] [address] Care Team Providers Care Billet Bed Operator Name Role Phone MelindaKenia ford ADRIAN Primary Care Provider +1- [phone] Encounter Details Date Type Department Care Team (Late st Contact Info) Description 11/20/2021 Telephone Cardiology at [address] [address] Shannon Verdin, RN Social History Tobacco Use Types Packs/Day [...] encounter Miscellaneous Notes * Telephone Encounter - Shannon Verdin RN - 11/20/2021 10:22 AM EST She called with complaints of Severe heart burn and hot flashes. She is also feeling nauseated. Shehas taken Tums and gaviscon and it seemed to help a bit, though her discomfort remains 5/10. She presented to the ED yesterday and had her incision on her Sub Q ICD evaluated and everything looked dafne with in normal limits. Her temp is 99.8 but she is also fighting an ear infection and the temps have been coming down. She was finally able to get a remote transmission to come in that shows no events. I let them know we cannot rule out an SC or decreased blood flow to her heart, or if this is a GI issue. Her partner thinks that they will go back to the ED as she is concerned about these symptoms being similar to when she had her cardiac event in the past. She has not checked her B/P today, but it was ok yesterday. Her discomfort today is less in the incision and now feels more in her chest. I advised that they get it evaluated. documented in this encounter Plan of Treatment Upcoming Encounters Date Type Department Care Team (Late st Contact Info) Description 09/21/2024 8:15 AM EST Routine Obstetrics [place] [address] Emili Cabrera MD [facility] [place] [address] 09/26/2024 6:00 PM EST Appointment [facility] [place] [phone] 10/16/2024 Hospital [place] [address] Dudley Aguilar MD [facility] DR OBSTETRICS [place] [address] 11/08/2024 10:00 AM EST Hospital Encounter Non-Invasive [place] [address] Arrived documented as of this encounter Visit Diagnoses Not on filedocumented in this encounter Care Teams Billet Bed Operator Relationship Specialty Start Date End Date Kenia Lawrence APRN [address] [place] [address] PCP - General Family Medicine 10/10/21 05/20/22 documented as of this encounter
--- OUTSIDE RECORDS SUMMARY | 2024-09-20 11:10 | XMS_ITS | Encounter Summary ---
Author Organization [facility] Address [facility] [place] [address] Care Team Providers Care Metal Turner Name Role Phone Kenia Lawrence ADRIAN Primary Care Provider +1- [phone] Encounter Details Date Type Department Care Team (Late st Contact Info) Description 11/26/2021 Orders Only Cardiology at [address] [phone] Social History Tobacco Use Types Packs/Day Years [...] AM EST Routine Obstetrics [place] [address] Emili Cabrera MD [facility] [place] [address] 09/26/2024 6:00 PM EST Appointment [facility] [place] [address] 10/16/2024 Hospital Encounter [facility] [place] [address] Dudley Aguilar MD [facility] DR OBSTETRICS AND GYNECOLOGY [place] [id number] 11/08/2024 10:00 AM EST Hospital Encounter Non-[place] [address] Arrived documented as of this encounter Procedures Procedure Name Priority Date/Time Associated Diagnosis Comments CARDIAC DEVICE CHECK - REMOTE PATIENT INITIATED Routine 11/26/2021 3:55 AM EST documented in this encounter Results * Cardiac device check - Remote Patient Initiated (11/26/2021 3:55 AM EST) [facility] Implantable Pulse Generator Type Defibrillator [employer] Implantable Pulse Generator Model A219 IDCO Implantable Pulse Generator Serial Number [id number] IDCO Implantable Pulse Generator Wharf Labourer Ultimate Shopper IDCO Implantable Pulse Generator Implant Date 20211112 IDCO Date Time Interrogation Session IDCO Type Interrogation Session Remote Patient Initiated IDCO Clinic Name [facility] IDCO Battery Date Time of Measurements [...] IDCO Episode Statistic Recent Date Time End 20211126 IDCO Episode Statistic Total Count 0 IDCO Episode Statistic Total Date Time Start [id number] IDCO Episode Statistic Total Date Time End 20211126 IDCO Episode Statistic Type Category VF IDCO Episode Statistic Vendor Type Category VF IDCO Episode Statistic Recent Count 0 IDCO Episode Statistic Recent Date Time Start 20211113 IDCO Episode Statistic Recent Date Time End 20211126 IDCO Episode Statistic Total Count 0 IDCO Episode Statistic Total Date Time Start 20211112 IDCO Episode Statistic Total Date Time End 20211126 IDCO Therapy Statistic Recent Date Time Start 20211113 IDCO Therapy Statistic Recent Date Time End 20211126 IDCO Therapy Statistic Recent Shocks Delivered 0 IDCO Therapy Statistic Total Date Time Start 20211112 IDCO Therapy Statistic Total Date Time End 20211126 IDCO Therapy Statistic Total Shocks Delivered 1 IDCO Implantable Lead Model 3501 IDCO Implantable Lead Serial Number [id number] IDCO Implantable Lead Wharf Labourer [employer] IDCO Implantable Lead Location Other IDCO Implantable Lead Location Detail 1 Subcutaneous IDCO Anatomical Region Laterality Modality Other 11/26/2021 3:55 AM EST Physician Cardiology IMPLANTABLE CARD IAC DEVICE documented in this encounter Visit Diagnoses Not on filedocumented in this encounter Care Teams Metal Turner Relationship Specialty Start Date End Date Kenia Lawrence, BODY SHOP MANAGER [address] [place] [address] PCP - General Family Medicine 10/10/21 05/20/22 documented as of this encounter
--- OUTSIDE RECORDS SUMMARY | 2024-09-20 11:10 | XMS_ITS | Encounter Summary ---
Author Organization [facility] Address [facility] [place] [address] Care Team Providers Care Tableau Developer Name Role Phone MelindaKenia ford CANDLE WICKER Primary Care Provider +1- [phone] Encounter Details Date Type Department Care Team (Late st Contact Info) Description 11/23/2021 2:00 PM EST TH Visit (TeleHealth) Cardiology at [address] [address] Valorie Ruiz MD [facility] [place] [address] Sophy Mathis MD [address] [place] [id number] ICD (implantable cardioverter-defibri llator) in place; Cardiac arrest Social History Tobacco Use Types [...] Progress Notes * Valorie Ruiz MD - 11/23/2021 2:00 PM EST EP RN POST DEVICE PROCEDURE FOLLOW UP CALL Patient Name: Aniya Luque Patient Performing MD: Isai Yap Date of Procedure: 11/12/21 Date of Discharge: 11/13/21 Date Patient wasCalled: 11/21/21 Procedure: SQ ICD implant Follow Up Visit: 11/28 in device clinic, 11/[address] Ruiz Assessment: Device Pocket Assessment (bruising, swelling, redness, irritation, discharge): evaluated on 11/16 & 11/19, reassured by pocket site. Pt reports it still feels as though it is swollen CP/dizziness/SOB/palpitations: (+) extreme dizziness, pt has been ambulating with walker for stability. (+) severe heart burn, nausea, & hot flashes. BP 113/72 UTI symptoms (pain, burning, urgency, frequency): Negative Headaches: Negative S/S of Infection (fever, chills, malaise): (+) chills, temperature of 99.4 F this AM Other Complaints: ED visits on 11/16 and 11/19 for SQ ICD site related pains. On 11/20 called & spoke with Ty Verdin had severe heart burn & hot flashes, nauseous Wound Care: - Would will heal in approx 7-10 days.It may be tender, it may appear slightly red and bumpy and there may be dry, crusty scabbing. These are all normal. Inspect the wound for signs of infection which can be drainage, swelling, warmth or increased pain or redness. - Do not scratch or rub the wound or apply any creams, lotions or ointments on the wound until it is completely healed. - You may cover the wound with gauze if it rubs on clothing and causes you discomfort. - Avoid direct water pressure on the wound - continue this for 7 - 10 days. Do not submerge wound for 14 days - Do not scrub or wash would if Dermabond is used - You may remove your dressing on: Friday, November 21 Arm Restrictions: - Do not raise your elbow on the operated side above the shoulder for 6 weeks - Do not lift greater than 7 pounds (equal to a gallon of milk) on the operated side for 6 weeks. - Do not fully extend this arm in any direction away from the torso for 6 weeks - You may use your arm on the operated side, but do not make extreme movement (such as stretching or reaching for a heavy object) for 6 weeks - No driving for maximum of 1 week Notes: Pt reports that Dr. Ruiz had called her earlier today to discuss how she was feeling, pt reportsDr. Ruiz suggested she visit ED if she was feeling poorly but pt states I am feeling very frustrated with the ED because they don't know anything about me Advised pt based on symptoms to report to ED, she was agreeable & will have someone drive her. Will forward message to Dr. Ruiz so that she is aware. * Valorie Ruiz MD - 11/23/2021 2:00 PM EST CARDIOLOGY OUTPATIENT CLINIC NOTE PRIMARY CARE PROVIDER: Kenia Lawrence APRN REFERRING PROVIDER: Kenia Lawrence Patient ID: Aniya Luque is a 36 y.o. female. HPI: 11/23/21 Telephone Appointment COVID September 2021, Cardiac arrest (Vfib) October 2021, found to have severe multi-bed arterial spasm. Ms. Luque is well known to me; I was the inpatient cardiology attending who admitted her on November 04 2021 I have had several conversations with her since her hospital discharge and today she states that she does not feel good overall. She has a lot of bilateral arm and shoulder pain. Some days she just stays in bed, other days she is able to get up and walk around her house. Summary of October 2021 Hospital Admission Aniya Luque??is a 36 y.o.??female??with a history of??tobacco use, hypertension on ZANE-I at home, anxiety,??depression, possible use of cocaine, three pregnancies which were unremarkable. At present she does not have custody of her children. She had recent COVID-19 infection (diagnosed 09/27/2021)??who suffered an out of hospital VF arrest at home today witnessed by her boyfriend. ??Accordingto her boyfriend Dk, she awoke from sleep with severe heartburn and palpitations and asked for a wet washcloth.?When Dk??returned, she was found blue and unresponsive. ??Dk??performed about 10 minutes of bystander CPR before EMS arrived. ??EMS found her in ventricular fibrillation and pulseless. ??They performed 2 minutes of CPR, gave 1 shock and 2 rounds of epi. ??Per their??report, shewithdrew but did not follow commands. ??On arrival to the emergency department, her VBG was found to be 7.09/66 with a lactate of 6.5. ??She was intubated in the emergency department. ??ABG post intubation showed 7.2 3/44/199 with a lactate of 2.1. ??Labs were remarkable for WBC of 26, potassium of5.1, creatinine 1.56, D-dimer 5000, troponin 0.02 and negative test. ??U tox positive forbenzodiazepines. ??Post resuscitation ECG showed sinus tachycardia with QTC of 484 and no acute ischemic changes. ??No significant changes were found compared to her prior ECG.?There was no evidence of Brugada or accessory pathway. ??The patient underwent CT PE which was negative for PE. ??Her head CT was also negative for bleed. She underwent cardiac catheterization after having several episodes of Vfib requiring resuscitation. On cath, she was found to have severe spasm of her femoral artery on engagement of the catheter, this severe spasm was seen again with catheterization of her left coronary symptom. No obstructive CAD was found however she continued to have Vfib arrest and the procedure was aborted w/o study of herright coronary system. She was given IV nicardipine, IABP and remained stable. She regained good neurologic status, had ICD placed (subQ) and was discharged home. Plans were to have CT angiogram to evaluate her RCA and again to study her left system. It was felt that the severemulti-arterial bed arterial spasm may have been a sequelae of COVID. 11/04/21 Echocardiogram ??1. The left ventricular chamber size is normal. [...] dated 07/04/16, there is no significant change. PROBLEM LIST: Problem List: 2021-10: Subcutaneous defibrillator implanted 11/12/20192021-10: Cigarette smoker 2021-10: Coronary artery vasospasm 2021-10: *History of COVID-19 2021-10: Cardiac arrest 2020-10: Gastroesophageal reflux disease 2020-05: Borderline personality disorder 2020-05: Post-traumatic stress disorder, chronic 2020-05: Anxiety disorder, unspecified 2015-12: Chest pain 2015-03: Skin disease 2014-07: Anxiety 2014-07: Depression 2014-07: Asthma 2014-07: Hypertension 2014-07: Tachycardia MEDICATIONS: Current Outpatient Medications Medication Sig Dispense Refill ??? famotidine (Pepcid) 20 mg Tablet Take 1 tablet by mouth 2 times daily (before meals). Substitute with OTC as needed 60 tablet 0 ??? fluticasone propionate (Flonase) 50 mcg/actuation [place], Suspension 1 spray by Each Nare route [...] 3 times daily as needed for Anxiety. 30 tablet 12 ??? prazosin (MINIPRESS) 1 [...] current facility-administered medications for this visit. Subjective: Review of Systems Constitutional: Positive for malaise/fatigue. Negative for weight gain. Cardiovascular: Positive for chest pain and dyspnea on exertion. Negative for claudication, cyanosis, irregular heartbeat, leg swelling, near-syncope, orthopnea, palpitations, paroxysmal nocturnal dyspnea and syncope. Respiratory: Positive for shortness of breath. Negative for sleep disturbances due to breathing. Hematologic/Lymphatic: Does not bruise/bleed easily. Musculoskeletal: Positive for joint pain and muscle weakness. Negative for back pain, falls and myalgias. Genitourinary: Negative for frequency. Neurological: Positive for light-headedness. Negative for dizziness and loss of balance. Psychiatric/Behavioral: Negative for altered mental status and memory loss. Social History: Social History Socioeconomic History ??? [...] file Housing Stability: Not on file Objective: Physical Exam No data found. Recent Results (from the past 72 hour(s)) Cardiac device check - Remote Patient Initiated Result Value Implantable Pulse Generator Type Defibrillator Implantable Pulse Generator Model A219 Implantable Pulse Generator Serial Number [id number] Implantable Pulse Generator Tinsmith Helper [employer] Implantable Pulse Generator Implant Date 20211112 Date Time Interrogation Session Type Interrogation Session Remote Patient Initiated Clinic Name [facility] Battery Date Time of Measurements Battery Status Beginning of Service Battery Remaining Percentage 100 Tachy Therapy Setting Ventricular Status On Zone Setting Type Category VF Zone Setting Vendor Type Category VF Zone Setting Status Active Zone Setting Detection Interval 250 Zone Setting Shock Energy 80 Zone Setting Type Category VT Zone Setting Vendor Type Category VT Zone Setting Status Active Zone Setting Detection Interval 300 Zone Setting Detection Details SMART Charge: 0 s Zone Setting Shock Energy 80 Episode Statistic Type Category Other Episode Statistic Vendor Type Category Episode Statistic Recent Count 0 Episode Statistic Recent Date Time Start 20211113 Episode Statistic Recent Date Time End 20211126 Episode Statistic Total Count 0 Episode Statistic Total Date Time Start 20211112 Episode Statistic Total Date Time End 20211126 Episode Statistic Type Category VF Episode Statistic Vendor Type Category VF Episode Statistic Recent Count 0 Episode Statistic Recent Date Time Start 20211113 Episode Statistic Recent Date Time End 20211126 Episode Statistic Total Count 0 Episode Statistic Total Date Time Start 20211112 Episode Statistic Total Date Time End 20211126 Therapy Statistic Recent Date Time Start 20211113 Therapy Statistic Recent Date Time End 20211126 Therapy Statistic Recent Shocks Delivered 0 Therapy Statistic Total Date Time Start 20211112 Therapy Statistic Total Date Time End 20211126 Therapy Statistic Total Shocks Delivered 1 Implantable Lead Model 3501 Implantable Lead Serial Number [id number] Implantable Lead Tinsmith Helper [employer] Implantable Lead Location Other Implantable Lead Location Detail 1 Subcutaneous Cardiac device check - Remote Patient Initiated Result Value Implantable Pulse Generator Type Defibrillator Implantable Pulse Generator Model A219 Implantable Pulse Generator Serial Number [id number] Implantable Pulse Generator Tinsmith Helper [employer] Implantable Pulse Generator Implant Date 20211112 Date Time Interrogation Session Type Interrogation Session Remote Patient Initiated Clinic [facility] Battery Date Time of Measurements Battery Status Beginning of Service Battery Remaining Percentage 100 Tachy Therapy Setting Ventricular Status On Zone Setting Type Category VF Zone Setting Vendor Type Category VF Zone Setting Status Active Zone Setting Detection Interval 250 Zone Setting Shock Energy 80 Zone Setting Type Category VT Zone Setting Vendor Type Category VT Zone Setting Status Active Zone Setting Detection Interval 300 Zone Setting Detection Details SMART Charge: 0 s Zone Setting Shock Energy 80 Episode Statistic Type Category Other Episode Statistic Vendor Type Category Episode Statistic Recent Count 0 Episode Statistic Recent Date Time Start 20211113 Episode Statistic Recent Date Time End 20211126 Episode Statistic Total Count 0 Episode Statistic Total Date Time Start 20211112 Episode Statistic Total Date Time End 20211126 Episode Statistic Type Category VF Episode Statistic Vendor Type Category VF Episode Statistic Recent Count 0 Episode Statistic Recent Date Time Start 20211113 Episode Statistic Recent Date Time End 20211126 Episode Statistic Total Count 0 Episode Statistic Total Date Time Start 20211112 Episode Statistic Total Date Time End 20211126 Therapy Statistic Recent Date Time Start 20211113 Therapy Statistic Recent Date Time End 20211126 Therapy Statistic Recent Shocks Delivered 0 Therapy Statistic Total Date Time Start 20211112 Therapy Statistic Total Date Time End 20211126 Therapy Statistic Total Shocks Delivered 1 Implantable Lead Model 3501 Implantable Lead Serial Number [id number] Implantable Lead Tinsmith Helper [employer] Implantable Lead Location Other Implantable Lead Location Detail 1 Subcutaneous Assessment and Plan: No problem-specific Assessment & Plan notes found for this encounter. Cardiac Arrest ?? Etiology not confirmed but suspect this was secondary to severe arterial spasm ?? Continue amlodipine 10 mg ?? ICD placed ?? Plan for Ct angiogram to evaluate right coronary system and re-examine left Blood pressure ?? Continue current medications ?? Home readings at goal Lipids ?? On statin, no recent lipid panel Overall cardiac status ?? Normal LV systolic function ?? Will have CT Angiogram to complete evaluation of coronary arteries ?? Referral to cardiac rehabilitation shoulder and arm pain (bilateral) ?? the pain is there all the time. The only numbness is down by her thumb. X-ray on 11/16/21 was unremarkable. She had a lot of CPR and this may be the cause. She had the EP team evaluate and they didnot find any etiology related to her subQ ICD. She will also f/u with her PCP Lifestyle ?? Depression -- I will reach out to her PCP as I feel managing and treating this will be an important part of her care ?? Physical activity--discussed cardiac rehab and I have referred her for this ?? Diet-plan to arrange a telemedicine consult ?? Time spent for this clinic appointment on the date of service includes: 1) counseling on lifestyle, medications 2)reviewing past medical records, cardiac testing, results of laboratory testing 3) coordinating care with other physicians and allied health care providers Valorie Ruiz MD, Naye, FACC, FNLA Attending Hunting Sales Leader Sports Cardiology Program Preventive Cardiology Lipid Clinic Advanced Hypertension Clinic documented in this encounter Plan of Treatment Upcoming Encounters Date Type Department Care Team (Late st Contact Info) Description 09/21/2024 8:15 AM EST Routine Obstetrics [place] [address] Emili Cabrera MD [facility] [place] [address] 09/26/2024 6:00 PM EST Appointment [facility] [place] [address] 10/16/2024 Hospital [place] [address] Dudley Aguilar MD [facility] OBSTETR[place] [address] 11/08/2024 10:00 AM EST Hospital Encounter Non[place] [address] Arrived documented as of this encounter Visit Diagnoses Diagnosis ICD (implantable cardioverter-defibrillator) in place Cardiac arrest documented in this encounter Care Teams Tableau Developer Relationship Specialty Start Date End Date Kenia Lawrence APRN [address] [place] [address] PCP - General Family Medicine 10/10/21 05/20/22 documented as of this encounter
--- OUTSIDE RECORDS SUMMARY | 2024-09-20 11:10 | XMS_ITS | Encounter Summary ---
Author Organization Replaced By [facility] [place] [address] Care Team Providers Care Monitoring Coordinator Name Role Phone MelindaKenia ford ADRIAN Primary Care Provider +1- [phone] Encounter Details Date Type Department Care Team (Late st Contact Info) Description 11/22/2021 Telephone Cardiology at [address] [phone] Lori Bejarano, RN Social History Tobacco Use [...] Telephone Encounter - Lori Bejarano RN - 11/22/2021 9:31 AM ESTSummary: Follow Up Pt called this AM to give update to phone call from yesterday She was able to go to local ED at [facility] in [facility]. Reports they did CT scan of abdomen where they told her that her gall bladder was enlarged & that she will need to follow up with GI as an outpatient, however pt states that no referral was made by ED. Records are being requested from yesterday's ED visit by Jaci Team departmental secretary Mylene in preparation for visit tomorrow (11/23) with Dr. Ruiz documented in this encounter Plan of Treatment Upcoming Encounters Date Type Department Care Team (Late st Contact Info) Description 09/21/2024 8:15 AM EST Routine Obstetrics [place] [address] Emili Cabrera MD [facility] [place] [address] 09/26/2024 6:00 PM EST Appointment [facility] [place] [address] 10/16/2024 [place] [address] Dudley Aguilar MD [facility] DR OBSTETRICS [place] [address] 11/08/2024 10:00 AM EST Hospital Encounter Non-Invasive [place] [address] Arrived documented as of this encounter Visit Diagnoses Not on filedocumented in this encounter Care Teams Monitoring Coordinator Relationship Specialty Start Date End Date Kenia Lawrence, ERP PROJECT MANAGER [address] [place] [address] PCP - General Family Medicine 10/10/21 05/20/22 documented as of this encounter
--- OUTSIDE RECORDS SUMMARY | 2024-09-20 11:10 | XMS_ITS | Encounter Summary ---
Author Organization [facility] [place] [address] Care Team Providers Care Client Solutions Director Name Role Phone MelindaKenia ford ADRIAN Primary Care Provider +1- [phone] Reason for Visit * Reason Onset Date Comments Pre Procedure Call 12/03/2021 Encounter Details Date Type Department Care Team (Late st Contact Info) Description 12/03/2021 Telephone Cardiology at [address] [phone] Lori Bejarano RN Pre Procedure Call Social History Tobacco Use Types Packs/Day Years [...] Telephone Encounter - Lori Bejarano RN - 12/03/2021 12:59 PM ESTSummary: Pre Procedure Call: DFTs [employer]EN[employer] TRANSACTIONAL ATTORNEY COORDINATION CHECKLIST Patient Name: Aniya Luque Patient Performing Decaler: Isai Yap Referring Provider: Isai Yap Date of Procedure: 12/20/21 Arrival Time/ Case Time: 6:00 am / 7:30 am Date Patient was Called: 12/03/21 Procedure: DFT Testing Company: [employer] Orders: Yes Lab Orders: Yes Anesthesia: GA Discharge Plan: HOME Med Instructions: ZANE - hold lisinopril the AM of procedure Anticoag Type: N/A Imaging: N/A COVID TEST?: No - same day discharge Contrast Allergy: No DM: No Coming from an assisted living facility?: No Any recent S/S of infection (fevers, on oral ABX)?: No Other Instructions: NPO after midnight on day of procedure, AM medications w/ small sips of water, Same Day will call 12/19/21. Will be going home same day, understands that they will need delivery driver assistant on day of discharge Notes/Questions: Pt has many questions about risks of the procedure, the purpose of procedure, & what everythingentails. She reports that she has a bad memory and would like everything re-explained as well as risks reviewed. Will forward in message to Dr. Yap to review documented in this encounter Plan of Treatment Upcoming Encounters Date Type Department Care Team (Late st Contact Info) Description 09/21/2024 8:15 AM EST Routine Obstetrics [place] [address] Emili Cabrera MD [facility] [place] [address] 09/26/2024 6:00 PM EST Appointment [facility] [place] [address] 10/16/2024 Hospital [place] [phone] Dudley Aguilar MD [facility] OBSTETRICS [place] [address] 11/08/2024 10:00 AM EST Hospital Encounter Non-[place] [address] Arrived documented as of this encounter Visit Diagnoses Not on filedocumented in this encounter Care Teams Client Solutions Director Relationship Specialty Start Date End Date Kenia Lawrence APRN [address] [place] [address] PCP - General Family Medicine 10/10/21 05/20/22 documented as of this encounter
--- OUTSIDE RECORDS SUMMARY | 2024-09-20 11:10 | XMS_ITS | Encounter Summary ---
Author Organization [facility] Address [facility] [place] [address] Care Team Providers Care General Expeditor Name Role Phone Kenia Lawrence APRN Primary Care Provider +1- [phone] Encounter Details Date Type Department Care Team (Late st Contact Info) Description 11/27/2021 Interpretation Only [address] [phone] Kenia Lawrence [place] [address] [place] [address] Social History Tobacco Use Types Packs/Day Years [...] AM EST Routine Obstetrics [place] [address] Emili Cabrera MD [facility] MATERNAL [place] [address] 09/26/2024 6:00 PM EST Appointment [facility] [place] [phone] 10/16/2024 Hospital [place] [address] Dudley Aguilar MD [facility] DR OBSTETRICS [place] [address] 11/08/2024 10:00 AM EST Hospital Encounter Non-Invasive [place] [phone] Arrived documented as of this encounter Procedures Procedure Name Priority Date/Time Associated Diagnosis Comments XR CHEST PA AND LATERAL Routine 11/27/2021 10:55 AM EST documented in this encounter Results * XR Chest PA & Lateral (Generic) (11/27/2021 10:55 AM EST) PT CLASS O RAD ADMITDTTM RAD PT RAD INFO [id number]^P RIESTLEY^AYL A RAD EXAM DESC XCXR2^XR CHEST 2 VIEWS^RIS RAD Anatomical Region Laterality Modality Chest N/A Radiographic Ewa ging Impressions 11/27/2021 11:23 AM EST No acute cardiopulmonary pathology detected. Thank you for letting us participate in the care of this patient. ??If you are a health care provider and have any questions regarding this report, please contact the number below. ??For patients who have questions please contact the health resident care aid that requested your imaging first. ? Electronically signed by: Luis F Valladares MD, [facility] ([phone]), at 11/27/2021 11:23 AM Narrative 11/27/2021 11:23 AM EST EXAMINATION: XR CHEST 2 VIEWS CLINICAL HISTORY: SOB TECHNIQUE: 2 views of the chest COMPARISON: November 13, 2021 FINDINGS: The lungs are well-inflated and clear. The heart is normal in size. No pneumothorax or pleural effusions detected. Pulse generator implanted in the left lateral chest wall is in place with a single vertically positioned electrode projecting in the sternal region. Procedure Note Luis F Valladares MD - 11/27/2021 EXAMINATION: XR CHEST 2 VIEWS CLINICAL HISTORY: SOB TECHNIQUE: 2 views of the chest COMPARISON: November 13, 2021 FINDINGS: The lungs are well-inflated and clear. The heart is normal in size. No pneumothorax or pleural effusions detected. Pulse generator implanted inthe left lateral chest wall is in place with a single vertically positioned electrode projecting in the sternal region. IMPRESSION No acute cardiopulmonary pathology detected. Thank you for letting us participate in the care of this patient. If youare a health care provider and have any questions regarding this report,please contact the number below. For patients who have questions please contactthe health resident care aid that requested your imaging first. Electronically signed by: Luis F Valladares [facility]([phone]), at 11/27/2021 11:23 AM Kenia Lawrence APRN IMG DX ORDERABLES documented in this encounter Visit Diagnoses Not on filedocumented in this encounter Care Teams General Expeditor Relationship Specialty Start Date End Date Kenia Lawrence APRN [address] [place] [address] PCP - General Family Medicine 10/10/21 05/20/22 documented as of this encounter
--- OUTSIDE RECORDS SUMMARY | 2024-09-20 11:10 | XMS_ITS | Encounter Summary ---
Author Organization [facility] Address [facility] [place] [address] Care Team Providers Care Watch Case Polisher Name Role Phone Kenia Lawrence ADRIAN Primary Care Provider +1- [phone] Encounter Details Date Type Department Care Team (Late st Contact Info) Description 11/26/2021 Orders Only Cardiology at [address] [phone] Social History Tobacco Use Types Packs/Day Years [...] Routine Obstetrics [place] [address] Emili Cabrera MD [facility] [place] [address] 09/26/2024 6:00 PM EST Appointment [facility] [place] [address] 10/16/2024 Hospital Encounter [facility] [place] [address] Dudley Aguilar MD [facility] DR OBSTETRICS AND GYNECOLOGY [place] [id number] 11/08/2024 10:00 AM EST Hospital Encounter Non-[place] [address] Arrived documented as of this encounter Procedures Procedure Name Priority Date/Time Associated Diagnosis Comments CARDIAC DEVICE CHECK - REMOTE PATIENT INITIATED Routine 11/26/2021 7:10 AM EST documented in this encounter Results * Cardiac device check - Remote Patient Initiated (11/26/2021 7:10 AM EST) [facility] Implantable Pulse Generator Type Defibrillator IDCO Implantable Pulse Generator Model A219 IDCO Implantable Pulse Generator Serial Number [id number] IDCO Implantable Pulse Generator Research Psychologist [employer] IDCO Implantable Pulse Generator Implant Date [id number] IDCO Date Time Interrogation Session IDCO Type Interrogation Session Remote Patient Initiated IDCO Clinic Name [facility] IDCO Battery Date Time of Measurements IDCO [...] IDCO Episode Statistic Total Date Time Start 34756813 IDCO Episode Statistic Total Date Time End [...] Model 3501 IDCO Implantable Lead Serial Number [id number] IDCO Implantable Lead Research Psychologist [place] [employer] IDCO Implantable Lead Location Other IDCO Implantable Lead Location Detail 1 Subcutaneous IDCO Anatomical Region Laterality Modality Other 11/26/2021 7:10 AM EST Physician Cardiology IMPLANTABLE CARD IAC DEVICE documented in this encounter Visit Diagnoses Not on filedocumented in this encounter Care Teams Watch Case Polisher Relationship Specialty Start Date End Date Kenia Lawrence, ELECTRONIC SCIENCE TEACHER [address] [place] [address] PCP - General Family Medicine 10/10/21 05/20/22 documented as of this encounter
--- OUTSIDE RECORDS SUMMARY | 2024-09-20 11:10 | XMS_ITS | Encounter Summary ---
Author Organization [facility] [place] [address] Care Team Providers Care Flat Bed Knitter Name Role Phone MelindaKenia ford ADRIAN Primary Care Provider +1- [phone] Encounter Details Date Type Department Care Team (Late st Contact Info) Description 12/05/2021 Telephone Cardiology at [address] [phone] Ofe Finn, RN Social History Tobacco Use [...] Miscellaneous Notes * Telephone Encounter - Ofe Finn, RN - 12/05/2021 2:29 PM EST Call from Aniya,states she just found out she is and has concerns regarding her cardiac status. She is requesting a return call from Dr Ruiz. She is aware that Dr Ruiz is in clinic all day and not able to return phone calls. Forward to Dr Ruiz documented in this encounter Plan of Treatment Upcoming Encounters Date Type Department Care Team (Late st Contact Info) Description 09/21/2024 8:15 AM EST Routine Obstetrics [place] [address] Emili Cbarera MD [facility] MATERNAL [place] [address] 09/26/2024 6:00 PM EST Appointment [facility] [place] [phone] 10/16/2024 [place] [address] Dudley Aguilar MD [facility] DR OBSTETRICS [place] [address] 11/08/2024 10:00 AM EST Hospital Encounter Non[place] [address] Arrived documented as of this encounter Visit Diagnoses Not on filedocumented in this encounter Care Teams Flat Bed Knitter Relationship Specialty Start Date End Date Kenia Lawrence APRN [address] [place] [address] PCP - General Family Medicine 10/10/21 05/20/22 documented as of this encounter
--- OUTSIDE RECORDS SUMMARY | 2024-09-20 11:10 | XMS_ITS | Encounter Summary ---
Author Organization [facility] [place] [address] Care Team Providers Care Metal Bonder Name Role Phone MelindaKenia ford ORTHOTIST/PROSTHETIST Primary Care Provider +1- [phone] Encounter Details Date Type Department Care Team (Late st Contact Info) Description 11/19/2021 Telephone Cardiology at [address] [address] Blake Low [facility] [place] [place] [address] Social History Tobacco Use Types Packs/Day Years [...] encounter Miscellaneous Notes * Telephone Encounter - Blake Low DO - 11/19/2021 5:18 PM EST Pt called to report that after uploading device information her transmitter was not working like itpreviously did. Communicated with EP who will f/u with the patient tomorrow. documented in this encounter Plan of Treatment Upcoming Encounters Date Type Department Care Team (Late st Contact Info) Description 09/21/2024 8:15 AM EST Routine Obstetrics [place] [address] Emili Cabrera MD [facility] [place] [address] 09/26/2024 6:00 PM EST Appointment [facility] [place] [address] 10/16/2024 [place] [address] Dudley Aguilar MD [facility] DR [place] [address] 11/08/2024 10:00 AM EST Hospital Encounter Non-Invasive [place] [address] Arrived documented as of this encounter Visit Diagnoses Not on filedocumented in this encounter Care Teams Metal Bonder Relationship Specialty Start Date End Date Kenia Lawrence APRN [address] [place] [address] PCP - General Family Medicine 10/10/21 05/20/22 documented as of this encounter
--- OUTSIDE RECORDS SUMMARY | 2024-09-20 11:10 | XMS_ITS | Encounter Summary ---
Author Organization [facility] Address [facility] [place] [address] Care Team Providers Care Staffing Director Name Role Phone Kenia Lawrence LEAD SPRINKLER Primary Care Provider +1- [phone] Encounter Details Date Type Department Care Team (Late st Contact Info) Description 11/26/2021 Telephone Cardiology at [address] [phone] Valorie Ruiz MD [facility] [place] [address] Social History Tobacco Use Types Packs/Day Years [...] AM EST Routine Obstetrics [place] [address] Emili Cabrera MD [facility] MATERNAL AND MEDICINE [place], [place] [phone] 09/26/2024 6:[address] [facility] [place] [address] 10/16/2024 [place] [address] Dudley Aguilar MD [facility] DR OBSTETRICS [place] [address] 11/08/2024 10:00 AM EST Hospital Encounter Non-[place] [address] Arrived documented as of this encounter Visit Diagnoses Not on filedocumented in this encounter Care Teams Staffing Director Relationship Specialty Start Date End Date Kenia Lawrence APRN [address] [place] [address] PCP - General Family Medicine 10/10/21 05/20/22 documented as of this encounter
--- OUTSIDE RECORDS SUMMARY | 2024-09-20 11:10 | XMS_ITS | Encounter Summary ---
Author Organization [facility] Address [facility] [place] [address] Care Team Providers Care Cad Drafter Name Role Phone MelindaKenia ford ADRIAN Primary Care Provider +1- [phone] Encounter Details Date Type Department Care Team (Late st Contact Info) Description 12/05/2021 Telephone Cardiology at [address] [place] [address] Valorie Ruiz MD [facility] [place] [address] Social History Tobacco Use Types Packs/Day Years [...] Telephone Encounter - Valorie Ruiz MD - 12/05/2021 7:34 PM EST I returned Ms. Luque's call She is well known to me and I have been following her as an outpatient. She presented with cardiac arrest and Vfib in the setting of having had COVID approximately 40 days prior. She now has an ICD and we await further evaluation of her coronary anatomy (her right system was not studied during her inpatient cardiac catheterization. While we presume this was free of obstructive disease, we awaited further testing. She shared with our team nurse that she is . We would need to clarify the safety of having a CT angiogram and more important, I let her know that she would be considered a high risk given her cardiac issues. I asked her to reach outto her furniture sander as a first step (if she has not already done this). I was only able to leave a message but will follow up documented in this encounter Plan of Treatment Upcoming Encounters Date Type Department Care Team (Late st Contact Info) Description 09/21/2024 8:15 AM EST Routine Obstetrics [place] [address] Emili Cabrera MD [facility] MATERNAL [place] [address] 09/26/2024 6:00 PM EST Appointment [facility] [place] [address] 10/16/2024 Hospital [place] [address] Dudley Aguilar MD [facility] DR OBSTETRICS [place] [address] 11/08/2024 10:00 AM EST Hospital Encounter Non-Invasive [place] [address] Arrived documented as of this encounter Visit Diagnoses Not on filedocumented in this encounter Care Teams Cad Drafter Relationship Specialty Start Date End Date Kenia Lawrence APRN [address] [place] [address] PCP - General Family Medicine 10/10/21 05/20/22 documented as of this encounter
--- OUTSIDE RECORDS SUMMARY | 2024-09-20 11:10 | XMS_ITS | Encounter Summary ---
Author Organization [facility] Address [facility] [place] [address] Care Team Providers Care Teacher Lip Reading Name Role Phone Kenia Lawrence ADRIAN Primary Care Provider +1- [phone] Encounter Details Date Type Department Care Team (Late st Contact Info) Description 11/20/2021 Orders Only Cardiology at [address] [phone] Social History Tobacco Use Types Packs/Day Years [...] AM EST Routine Obstetrics [place] [address] Emili Cabrera MD [facility] [place] [address] 09/26/2024 6:00 PM EST Appointment [facility] [place] [address] 10/16/2024 Hospital [facility] [place] [address] Dudley Aguilar MD [facility] DR OBSTETRICS AND GYNECOLOGY [place] [id number] 11/08/2024 10:00 AM EST Hospital Encounter [place] [address] Arrived documented as of this encounter Procedures Procedure Name Priority Date/Time Associated Diagnosis Comments CARDIAC DEVICE CHECK - REMOTE PATIENT INITIATED Routine 11/20/2021 10:14 AM EST documented in this encounter Results * Cardiac device check - Remote Patient Initiated (11/20/2021 10:14 AM EST) [facility] Implantable Pulse Generator Type Defibrillator IDCO Implantable Pulse Generator Model A219 IDCO Implantable Pulse Generator Serial Number [id number] IDCO Implantable Pulse Generator [employer] Administrator [employer] IDCO Implantable Pulse Generator Implant Date 20211112 IDCO Date Time Interrogation Session IDCO Type Interrogation Session Remote Patient Initiated IDCO Clinic Name [facility] IDCO Battery Date Time of Measurements [...] IDCO Episode Statistic Recent Date Time End 20211120 IDCO Episode Statistic Total Count 0 IDCO Episode Statistic Total Date Time Start [id number] IDCO Episode Statistic Total Date Time End 20211120 IDCO Episode Statistic Type Category VF IDCO Episode Statistic Vendor Type Category VF IDCO Episode Statistic Recent Count 0 IDCO Episode Statistic Recent Date Time Start 20211113 IDCO Episode Statistic Recent Date Time End 20211120 IDCO Episode Statistic Total Count 0 IDCO Episode Statistic Total Date Time Start 20211112 IDCO Episode Statistic Total Date Time End 20211120 IDCO Therapy Statistic Recent Date Time Start 20211113 IDCO Therapy Statistic Recent Date Time End 20211120 IDCO Therapy Statistic Recent Shocks Delivered 0 IDCO Therapy Statistic Total Date Time Start 20211112 IDCO Therapy Statistic Total Date Time End 20211120 IDCO Therapy Statistic Total Shocks Delivered 1 IDCO Implantable Lead Model 3501 IDCO Implantable Lead Serial Number [id number] IDCO Implantable Lead Real Estate [employer] Administrator [employer] IDCO Implantable Lead Location Other IDCO Implantable Lead Location Detail 1 Subcutaneous IDCO Anatomical Region Laterality Modality Other 11/20/2021 10:1 4 AM EST Physician Cardiology IMPLANTABLE CARD IAC DEVICE documented in this encounter Visit Diagnoses Not on filedocumented in this encounter Care Teams Teacher Lip Reading Relationship Specialty Start Date End Date Kenia Lawrence, LINING PRINTER [address] [place] [address] PCP - General Family Medicine 10/10/21 05/20/22 documented as of this encounter
--- OUTSIDE RECORDS SUMMARY | 2024-09-20 11:10 | XMS_ITS | Encounter Summary ---
Author Organization [facility] [place] [address] Care Team Providers Care Switchboard Clerk Name Role Phone MelindaKenia ford ADRIAN Primary Care Provider +1- [phone] Reason for Visit * Reason Onset Date Comments Post Procedure Call 11/21/2021 Encounter Details Date Type Department Care Team (Late st Contact Info) Description 11/21/2021 Telephone Cardiology at [address] [phone] Lori Bejarano, RN Post Procedure Call Social History Tobacco Use Types [...] Telephone Encounter - Lori Bejarano RN - 11/21/2021 8:16 AM ESTSummary: Post Procedure Call: SQ ICD implant ARCENIO RN POST DEVICE PROCEDURE FOLLOW UP CALL [...] Dr. Ruiz so that she is aware. documented in this encounter Plan of Treatment Upcoming Encounters Date Type Department Care Team (Late st Contact Info) Description 09/21/2024 8:15 AM EST Routine Obstetrics [place] [address] Emili Cabrera MD [facility] MATERNAL [place] [address] 09/26/2024 6:00 PM EST Appointment [facility] [place] [address] 10/16/2024 [place] [address] Dudley Aguilar MD [facility] DR OBSTETRICS [place] [address] 11/08/2024 10:00 AM EST Hospital Encounter Non-[place] [address] Arrived documented as of this encounter Visit Diagnoses Not on filedocumented in this encounter Care Teams Switchboard Clerk Relationship Specialty Start Date End Date Kenia Lawrence APRN [address] [place] [address] PCP - General Family Medicine 10/10/21 05/20/22 documented as of this encounter
--- OUTSIDE RECORDS SUMMARY | 2024-09-20 11:10 | XMS_ITS | Encounter Summary ---
Author Organization [facility] Address [facility] [place] [address] Care Team Providers Care Hospital Laboratory Technician Name Role Phone MelindaKenia ford ADRIAN Primary Care Provider +1- [phone] Encounter Details Date Type Department Care Team (Late st Contact Info) Description 11/26/2021 Telephone Cardiology at [address] [place] [address] Valorie Ruiz MD [facility] [place] [address] Social History Tobacco Use Types Packs/Day Years [...] Encounter - Valorie Ruiz MD - 11/26/2021 10:22 AM ESTSummary: Follow up Telephone Call I called Ms. Luque, We reviewed the followin) over the weekend she felt her device vibrating but no shocks. She will have f/u with EP team 2) she still has very bad shoulder and arm pain (bilateral), the pain is there all the time. The only numbness is down by her thumb. X-ray on 11/16/21 was unremarkable. She had a lot of CPR and this may be the cause. She will also f/u with her PCP 3) sometimes she feels a little out of breath, the other day she walked around but yesterday she just stayed in bed (she was very tired 4) home blood pressure: 115/79 5) she will have the CT Angiogram 6) I will f/u on cardiac rehab documented in this encounter Plan of Treatment Upcoming Encounters Date Type Department Care Team (Late st Contact Info) Description 09/21/2024 8:15 AM EST Routine Obstetrics [place] [address] Emili Cabrera MD [facility] [place] [address] 09/26/2024 6:00 PM EST Appointment [facility] [place] [address] 10/16/2024 [place] [address] Dudley Aguilar MD [facility] DR [place] [address] 11/08/2024 10:00 AM EST Hospital Encounter Non-Invasive [place] [address] Arrived documented as of this encounter Visit Diagnoses Not on filedocumented in this encounter Care Teams Hospital Laboratory Technician Relationship Specialty Start Date End Date Kenia Lawrence APRN [address] [place] [address] PCP - General Family Medicine 10/10/21 05/20/22 documented as of this encounter
--- OUTSIDE RECORDS SUMMARY | 2024-09-20 11:10 | XMS_ITS | Encounter Summary ---
[place] [address] Care Team Providers Care Scientific Photographer Name Role Phone MelindaKenia ford ADRIAN Primary Care Provider +1- [phone] Encounter Details Date Type Department Care Team (Late st Contact Info) Description 12/01/2021 Telephone [place] [phone] Kayla Avina Social History Tobacco Use Types Packs/Day Years [...] encounter Miscellaneous Notes * Telephone Encounter - Kayla Avina - 12/01/2021 2:11 PM ESTSummary: EP Procedure Digital Sales Representative Checklist - 12/20 EP Procedure Digital Sales Representative Patient Coordination Checklist REFERRING PROVIDER: INPATIENT PATIENT CONTACTED: 11/15 DATE OF PROCEDURE: 12/20 0600/0730 PROCEDURE TYPE: DFT TESTING WORKERS COMPENSATION PARALEGAL (FULL NAME): PANTERA DENTON MD COMPANY: [facility] ANESTHESIA TYPE: GA IMAGING NEEDED: N/A DATES OF SCHEDULED IMAGING: N/A PROCEDURE ORDER: Y ALIA ORDER: N/A LAB ORDERS: Y ANTICOAG TYPE: N/A MANAGED BY (IF ON WARFARIN): N/A FACILITY NAME - N/A MD - N/A CONTACT INFO - N/A DATE OF INR PRIOR TO PROCEDURE: N/A DISCHARGE PLAN: HOME documented in this encounter Plan of Treatment Upcoming Encounters Date Type Department Care Team (Late st Contact Info) Description 09/21/2024 8:15 AM EST Routine Obstetrics [place] [address] Emili Cabrera MD [facility] [place] [address] 09/26/2024 6:00 PM EST [facility] [place] [address] 10/16/2024 Hospital [place] [address] Dudley Aguilar MD [facility] DR [place]ST[place] [address] 11/08/2024 10:00 AM EST Hospital Encounter [place] [address] Arrived documented as of this encounter Visit Diagnoses Not on filedocumented in this encounter Care Teams Scientific Photographer Relationship Specialty Start Date End Date Kenia Lawrence APRN [address] [place] [address] PCP - General Family Medicine 10/10/21 05/20/22 documented as of this encounter
--- OUTSIDE RECORDS SUMMARY | 2024-09-20 11:10 | XMS_ITS | Encounter Summary ---
Author Organization [facility] Address [facility] [place] [address] Care Team Providers Care Mold Making Plastics Sheets Supervisor Name Role Phone Kenia Lawrence ADRIAN Primary Care Provider +1- [phone] Encounter Details Date Type Department Care Team (Late st Contact Info) Description 12/04/2021 Orders Only Cardiology at [address] [address] Social History Tobacco Use Types Packs/Day Years [...] AM EST Routine Obstetrics [place] [address] Emili Cabrera MD [facility] [place] [address] 09/26/2024 6:00 PM EST Appointment [facility] [place] [address] 10/16/2024 Hospital [facility] [place] [address] Dudley Aguilar MD [facility] DR OBSTETRICS AND GYNECOLOGY [place] [id number] 11/08/2024 10:00 AM EST Hospital Encounter Non-Invasive [place] [address] Arrived documented as of this encounter Procedures Procedure Name Priority Date/Time Associated Diagnosis Comments CARDIAC DEVICE CHECK - REMOTE PATIENT INITIATED Routine 12/04/2021 7:32 AM EST documented in this encounter Results * Cardiac device check - Remote Patient Initiated (12/04/2021 7:32 AM EST) [facility] Implantable Pulse Generator Type Defibrillator IDCO Implantable Pulse Generator Model A219 IDCO Implantable Pulse Generator Serial Number [id number] IDCO Implantable Pulse Generator Weather Strip Installer NICE IDCO Implantable Pulse Generator Implant Date 20211112 IDCO Date Time Interrogation Session IDCO Type Interrogation Session Remote Patient Initiated IDCO Clinic Name [facility] IDCO Battery Date Time of Measurements [...] IDCO Episode Statistic Total Date Time Start 46987592 IDCO Episode Statistic Total Date Time End [...] Model 3501 IDCO Implantable Lead Serial Number [id number] IDCO Implantable Lead Weather Strip Installer [employer] IDCO Implantable Lead Location Other IDCO Implantable Lead Location Detail 1 Subcutaneous IDCO Anatomical Region Laterality Modality Other 12/04/2021 7:32 AM EST Physician Cardiology IMPLANTABLE CARD IAC DEVICE documented in this encounter Visit Diagnoses Not on filedocumented in this encounter Care Teams Mold Making Plastics Sheets Supervisor Relationship Specialty Start Date End Date Kenia Lawrence, ANALYSIS INTERNSHIP [address] [place] [address] PCP - General Family Medicine 10/10/21 05/20/22 documented as of this encounter
--- OUTSIDE RECORDS SUMMARY | 2024-09-20 11:10 | XMS_ITS | Encounter Summary ---
Author Organization [facility] Address [facility] [place] [address] Care Team Providers Care Student Success Coach Name Role Phone Kenia Lawrence ADRIAN Primary Care Provider +1- [phone] Encounter Details Date Type Department Care Team (Late st Contact Info) Description 11/19/2021 Orders Only Cardiology at [address] [phone] Social History Tobacco Use Types Packs/Day Years [...] AM EST Routine Obstetrics [place] [address] Emili Cabrera MD [facility] MATERNAL [place] [address] 09/26/2024 6:00 PM EST Appointment [facility] [place] [address] 10/16/2024 Hospital Encounter [facility] [address] Dudley Aguilar MD [facility] DR OBSTETRICS AND GYNECOLOGY [place] [id number] 11/08/2024 10:00 AM EST Hospital Encounter [place] [address] Arrived documented as of this encounter Procedures Procedure Name Priority Date/Time Associated Diagnosis Comments CARDIAC DEVICE CHECK - REMOTE PATIENT INITIATED Routine 11/19/2021 4:20 PM EST documented in this encounter Results * Cardiac device check - Remote Patient Initiated (11/19/2021 4:20 PM EST) [facility] Implantable Pulse Generator Type Defibrillator IDCO Implantable Pulse Generator Model A219 IDCO Implantable Pulse Generator Serial Number [id number] IDCO Implantable Pulse Generator Chandelier Maker [employer] IDCO Implantable Pulse Generator Implant Date 20211112 IDCO Date Time Interrogation Session IDCO Type Interrogation Session Remote Patient Initiated IDCO Clinic Name [facility] IDCO Battery Date Time of Measurements [...] IDCO Episode Statistic Total Date Time Start 50231295 IDCO Episode Statistic Total Date Time End [...] Model 3501 IDCO Implantable Lead Serial Number [id number] IDCO Implantable Lead Chandelier Maker [employer] IDCO Implantable Lead Location Other IDCO Implantable Lead Location Detail 1 Subcutaneous IDCO Anatomical Region Laterality Modality Other 11/19/2021 4:20 PM EST Physician Cardiology IMPLANTABLE CARD IAC DEVICE documented in this encounter Visit Diagnoses Not on filedocumented in this encounter Care Teams Student Success Coach Relationship Specialty Start Date End Date Kenia Lawrence, HELPDES[employer] TECHNICIAN [address] [place] [address] PCP - General Family Medicine 10/10/21 05/20/22 documented as of this encounter
--- OUTSIDE RECORDS SUMMARY | 2024-09-20 11:10 | XMS_ITS | Encounter Summary ---
Author Organization [facility] [place] [address] Care Team Providers Care Loop Tacker Name Role Phone MelindaKenia ford ADRIAN Primary Care Provider +1- [phone] Encounter Details Date Type Department Care Team (Latest Contact Info) Description 11/28/2021 4:00 PM EST Office Visit Cardiology at [address] [address] Shannon Verdin, RN Subcutaneous defibrillator implanted 11/12/2019 Social History [...] Sign Reading Time Taken Comments Blood Pressure 123/79 11/28/2021 4:00 PM EST Pulse 89 11/28/2021 4:00 PM EST Temperature - - Respiratory Rate - - Oxygen Saturation 100% 11/28/2021 4:00 PM EST Inhaled Oxygen Concentration - - Weight 69.2 kg (152 lb 9.6 oz) 11/28/2021 4:00 P M EST Height 162.6 cm (5' 4) 11/28/2021 4:00 PM EST Body Mass Index 26.19 11/28/2021 4:00 PM EST documented in this encounter Progress Notes * Shannon Verdin RN - 11/28/2021 4:00 PM EST Images from the original note were not included. Clinical Electrophysiology Device Service Note Aniya Luque is a 36 y.o. female who presents today for a Sub Q ICD programming evaluation and wound check. The Sub Q ICD was implanted by Dr Yap on 11/12/2021 for secondary prevention. She had out of hospital cardiac arrest and CPR on 11/04/21. She has been the ED and has had discussion with both Dr Ruiz and Dr Yap, regarding ongoing symptoms. She complains of discomfort in both her arms up to her shoulders. She find it difficult to lift things, since her hospitalization. Her chest area feels tender to touch. I indicated this could be a result of receiving CPR and extended hospital stay. She has discussed this with Dr Ruiz and cardiac rehab. I reassured her that her incisions are healing well with no drainage , no redness or hematoma to her left flank. She has had severe heart burn since discharge and had it earlier today but not at this time. I also reassured her that her remote monitor is working well and we have received several remote transmissions from her. I reinforced she should only send these weekly on tuesdays, unless she has concerns of an arrhythmia or shock and then follow this with a phone call. Chief Compliance Officer: Dr Ruiz EP: Dr Yap PCP: Kenia Lawrence APRN Final Parameters at implant: Ventricular electrode: SQ electrode Model 3501 Bipolar Serial Number [id number] Implanted 11/12/21 ?? Bipolar Subcutaneous ICD Lead Pulse generator: Emblem MRI S-ICD Pulse Generator Model A219 Serial Number [id number] Implanted 11/12/21 ?? Location: [id number], 5th to 6th intercostal space ?? Settings: Current Device Settings: Underlying rhythm: SR 98-106 bpm VHR: none Battery voltage: 100% Wound assessment: Left Flank Lower sternal incision Reprogramming: Iterative changes to assess device function Plan: Remote send manual once a week. RTC for 91 day check Provider: Shannon Verdin RN Attending: Dr Triana documented in this encounter Plan of Treatment Upcoming Encounters Date Type Department Care Team (Late st Contact Info) Description 09/21/2024 8:15 AM EST Routine Obstetrics [place] [address] Emili Cabrera MD [facility] [address] [place] [address] 09/26/2024 6:00 PM EST Appointment [facility] [place] [address] 10/16/2024 Hospital [place] [address] Dudley Aguilar MD [facility] DR OBSTETRICS [place] [address] 11/08/2024 10:00 AM EST Hospital Encounter Non[place] [address] Arrived documented as of this encounter Visit Diagnoses Diagnosis Subcutaneous defibrillator implanted 11/12/2019 documented in this encounter Care Teams Loop Tacker Relationship Specialty Start Date End Date Kenia Lawrence APRN [address] [place] [address] PCP - General Family Medicine 10/10/21 05/20/22 documented as of this encounter
--- OUTSIDE RECORDS SUMMARY | 2024-09-20 11:11 | XMS_ITS | Encounter Summary ---
Author Organization [facility] [address] Care Team Providers Care Furnace Tender Name Role Phone Kenia Lawrence ADRIAN Primary Care Provider +1- [phone] Reason for Visit * Reason Onset Date Comments Other 11/16/2021 FEVER Encounter Details Date Type Department Care Team (Late st Contact Info) Description 11/16/2021 Telephone Cardiology at [address] [phone] Carolina Rojo Other (FEVER) Social History Tobacco Use Types Packs/Day Years [...] Notes * Telephone Encounter - Carolina Rojo, TEACHER EDUCATION DIRECTOR - 11/16/2021 10:52 AM EST Patient's demar' called the Device Clinic. He took the patient's temp at home, it was 101.5, he gave her tylenol and re took her temp aprox 40 mins later and it was 100.5. I asked him how her implant site looks, he said he couldn't really tell due to the bandage, but it seemed swollen and near thesite she has a large hard bump the size of a baseball I relayed the information to EDEN Hall who was in the Device Clinic with me, he said the patient needs to come to the Emergency Department. I relayed the message to the patient's fiance', patient was next to her fiance' while I was on the phone and part of the conversation. He said he would bring her to our ED, patient stated that she was very nervous because she hasn't been to our ED and she was worried they wouldn't know what to do. I assured her they have access to her records and will page us if we are needed. She agreed to come, they estimate they'll be her in aprox 30 mins. I spoke with the transfer center and let them know patient is on her way. documented in this encounter Plan of Treatment Upcoming Encounters Date Type Department Care Team (Late st Contact Info) Description 09/21/2024 8:15 AM EST Routine Obstetrics [place] [phone] Emili Cabrera MD [facility] [place]NAL [place] [address] 09/26/2024 6:00 PM EST Appointment [facility] [place] [phone] 10/16/2024 Hospital [place] [phone] Dudley Aguilar MD [facility] OBSTETRICS [place] [address] 11/08/2024 10:00 AM EST Hospital Encounter Non-[place]vasive [place] [address] Arrived documented as of this encounter Visit Diagnoses Not on filedocumented in this encounter Care Teams Furnace Tender Relationship Specialty Start Date End Date Kenia Lawrence APRN [address] [place] [address] PCP - General Family Medicine 10/10/21 05/20/22 documented as of this encounter
--- OUTSIDE RECORDS SUMMARY | 2024-09-20 11:11 | XMS_ITS | Encounter Summary ---
Author Organization [facility] Address [facility] [place] [address] Care Team Providers Care Realty Specialist Name Role Phone Kenia [place] APRN Primary Care Provider +1- [phone] Reason for Visit * Reason Comments Other Encounter Details Date Type Department Care Team (Late st Contact Info) Description 11/19/2021 1:04 AM EST - 11/19/2021 1:38 AM EST Emergency Emergency Services at [address] [phone] Belia Lima MD [facility] [place] [address] Pain at surgical site Discharge Disposition: Home Social History Tobacco Use [...] Sign Reading Time Taken Comments Blood Pressure 136/80 11/19/2021 12:59 AM EST Pulse 78 11/19/2021 12:59 AM EST Temperature 36.4 ??C (97.6 ??F) 11/19/2021 12:[address] Respiratory Rate 20 11/19/2021 12:59 AM EST Oxygen Saturation 99% 11/19/2021 12:59 AM EST Inhaled Oxygen Concentration - - Weight 72.6 kg (160 lb) 11/19/2021 12:59 AM EST Height - - Body Mass Index 27.45 11/04/2021 8:00 AM EST documented in this encounter Discharge Instructions * Discharge Instructions* Belia Lima MD - 11/19/2021 1:37 AM EST Tylenol as directed as needed for pain. Follow-up with your primary care physician this week for reevaluation of your symptoms. If symptoms worsen, return to the ER. documented in this encounter Medications at Time of Discharge Medication Sig Dispensed Refills Start Date End Date fluticasone propionate (Flonase) 50 mcg/actuation [place], SuspensionIndications: allergic rhinitis 1 spray by Each [...] Take 1 tablet by mouth as needed. ciprofloxacin-dexameth asone (Ciprodex) 0.3-0.1 % Drops, Suspension Place 4 drops into the right ear 2 times daily for 7 days. 7.5 mL 11/16/2021 11/23/2021 famotidine (Pepcid) 20 mg Tablet Take 1 tablet by mouth 2 times daily (before meals). Substitute with OTC as needed 60 tablet 11/16/2021 06/20/2022 acetaminophen (Tylenol) 500 mg Tablet Take 2 tablets by mouth every 8 hours as needed for Pain. Substitute OTC if needed 60 tablet 1 11/16/2021 07/29/2022 lisinopriL (Zestril) 20 mg Tablet Take 1 tablet by mouth daily. 90 tablet 11/15/2021 12/13/2021 amLODIPine (Norvasc) 10 mg Tablet Take 1 tablet by mouth daily. 90 tablet 11/15/2021 01/01/2022 nitroGLYcerin (Nitrostat) 0.4 mg Tablet, Sublingual Place 1 tablet under the tongue every 5 minutes as needed for Chest pain. 30 tablet 11/14/2021 07/09/2022 atorvastatin (Lipitor) 40 mg Tablet Take 1 tablet by mouth every evening. 90 tablet 11/14/2021 12/13/2021 clonazePAM (KlonoPIN) 0.5 mg Tablet Take 2 [...] mg/mL) oral liquid Take by mouth. 022 hydrOXYzine (Atarax) 25 mg Tablet Take 1 tablet by mouth 3 times daily as needed for Anxiety. 30 tablet 12 05/25/2020 12/13/2021 prazosin (MINIPRESS) 1 mg Capsule Take 1 mg by mouth 3 times daily. 02/13/2022 documented as of this encounter ED Notes * Belia Lima MD - 11/19/2021 1:31 AM EST ED Attending Note History obtained from the patient and medical record. HPI: Aniya Luque is a 36 y.o. female who presents to the Emergency Department reporting pain in herICD site after she rolled in bed this evening. ICD was placed 11/12 after cardiac arrest in the field 11/04 and again in hospital. Patient was discharged 11/14 evaluated for pain around her ICD on 11/16 at [facility], at that time also complaints of right ear pain, arm fatigue and increased coughing. Tonight patient reports only pain at the ICD site, prompted by rolling onto her left side, where the ICDis placed. She denies fever, chest pain, shortness of breath or abdominal pain. Review of Systems Constitutional: Negative for fever. HENT: Negative for congestion. Respiratory: Negative for cough and shortness of breath. Cardiovascular: Negative for chest pain. Gastrointestinal: Negative for abdominal pain. Skin: Positive for wound (Pain at surgical site of ICD placement, see HPI.). Past Medical and Surgical Histories, Social History, Medications, Allergies were reviewed in the chart. Vitals: ED Triage Vitals [11/19/21 0059] BP: 136/80 Heart Rate: 78 Resp: 20 Temp: 36.4 ??C (97.6 ??F) Temp src: Oral SpO2: 99 % O2 Device: RA O2 Flow Rate (L/min): n/a Physical Exam General: Alert and conversant. No acute distress. HENT: Normocephalic. Atraumatic. EOMI. Sclera clear without injection or icterus. Nares clear. Oropharynx unremarkable. Moist mucous membranes. Neck: Supple. Nontender. Painless range of motion. Lungs: Normal respiratory effort. Clear to auscultation bilaterally. No rales, rhonchi, wheezes or stridor. Heart: Regular rate and rhythm. No murmurs or rubs. ICD surgical wound noted over the left rib cage, without erythema, warmth or drainage. No dehiscence noted. There is mild tenderness to palpation around the area, no crepitus. Abdomen: Soft, nontender, nondistended. Back: No abnormality noted. Extremities: Nontender. Neuro: Alert and conversant. Clear speech. Moves all limbs equally. Ambulatory. Skin: Normal color. Good turgor. Dry. No rashes. Psych: Normal mood. Answers questions appropriately. ED Course: No orders to display Procedures Assessment and Plan: 36 y.o. female with pain to the surgical site of ICD placement over left rib cage after she rolled in bed onto it. Patient denies any other associated symptoms. Surgical site appears intact without signs of infection. She is afebrile and hemodynamically stable, safe for discharge home with outpatient follow-up. Did this case involve critical care? No [...] concerns. she agrees with thefollow- up plan. Belia Lima MD 11/19/21 0143 documented in this encounter Miscellaneous Notes * ED Triage - Mellisa Velasco RN - 11/19/2021 12:59 AM EST Pt.ambulated to room 2. Pt.rports she felt a stitch move at her ICD surgical site while lying on her side an hour ago. Pt. Reports she felt nauseous ans had an episode of emesis after. Pt. Reports pain at the site. Pt. Was discharged 4 days ago from [facility] for ICD placement. VSS. NAD HPI (Adult) Stated Reason for Visit: surgical stitches pulled apart History Obtained From: patient Duration (Hours): 1 documented in this encounter Plan of Treatment Upcoming Encounters Date Type Department Care Team (Late st Contact Info) Description 09/21/2024 8:15 AM EST Routine Obstetrics [place] [address] Emili Cabrera MD [facility] [place]NAL [place] [address] 09/26/2024 6:00 PM EST Appointment [facility] [place] [phone] 10/16/2024 Hospital [place] [phone] Dudley Aguilar MD [facility] DR OBSTETRICS [place] [address] 11/08/2024 10:00 AM EST Hospital Encounter Non-[place] [phone] Arrived documented as of this encounter Visit Diagnoses Diagnosis Pain at surgical site documented in this encounter Care Teams Realty Specialist Relationship Specialty Start Date End Date Kenia Lawrence APRN [address] [place] [address] PCP - General Family Medicine 10/10/21 05/20/22 documented as of this encounter
--- OUTSIDE RECORDS SUMMARY | 2024-09-20 11:11 | XMS_ITS | Encounter Summary ---
Author Organization [facility] Address [facility] [place] [address] Care Team Providers Care Draw Hand Name Role Phone Kenia Lawrence ADIRAN Primary Care Provider +1- [phone] Encounter Details Date Type Department Care Team (Late st Contact Info) Description 11/15/2021 Orders Only Cardiology at [address] [phone] Social History Tobacco Use Types Packs/Day Years [...] AM EST Routine Obstetrics [place] [address] Emili Cabrera MD [facility] [place] [address] 09/26/2024 6:00 PM EST Appointment [facility] [place] [address] 10/16/2024 [facility] [place] [address] Dudley Aguilar MD [facility] DR OBSTETRICS AND GYNECOLOGY [place] [phone] 11/08/2024 10:00 AM EST Hospital Encounter Non-Invasive [place] [address] Arrived documented as of this encounter Procedures Procedure Name Priority Date/Time Associated Diagnosis Comments CARDIAC DEVICE CHECK - REMOTE PATIENT INITIATED Routine 11/15/2021 10:25 AM EST documented in this encounter Results * Cardiac device check - Remote Patient Initiated (11/15/2021 10:25 AM EST) [facility] Implantable Pulse Generator Type Defibrillator IDCO Implantable Pulse Generator Model A219 IDCO Implantable Pulse Generator Serial Number [id number] IDCO Implantable Pulse Generator Superintendent Circ[employer] IDCO Implantable Pulse Generator Implant Date 20211112 IDCO Date Time Interrogation Session IDCO Type Interrogation Session Remote Patient Initiated IDCO Clinic Name [facility] IDCO Battery Date Time of Measurements [...] IDCO Episode Statistic Recent Date Time End 20211115 IDCO Episode Statistic Total Count 0 IDCO Episode Statistic Total Date Time Start 92460513 IDCO Episode Statistic Total Date Time End 20211115 IDCO Episode Statistic Type Category VF IDCO Episode Statistic Vendor Type Category VF IDCO Episode Statistic Recent Count 0 IDCO Episode Statistic Recent Date Time Start 20211113 IDCO Episode Statistic Recent Date Time End 20211115 IDCO Episode Statistic Total Count 0 IDCO Episode Statistic Total Date Time Start 20211112 IDCO Episode Statistic Total Date Time End 20211115 IDCO Therapy Statistic Recent Date Time Start 20211113 IDCO Therapy Statistic Recent Date Time End 20211115 IDCO Therapy Statistic Recent Shocks Delivered 0 IDCO Therapy Statistic Total Date Time Start 20211112 IDCO Therapy Statistic Total Date Time End 20211115 IDCO Therapy Statistic Total Shocks Delivered 1 IDCO Implantable Lead Model 3501 IDCO Implantable Lead Serial Number [id number] IDCO Implantable Lead Superintendent [employer] [place] [employer] IDCO Implantable Lead Location Other IDCO Implantable Lead Location Detail 1 Subcutaneous IDCO Anatomical Region Laterality Modality Other 11/15/2021 10:2 5 AM EST Physician Cardiology IMPLANTABLE CARD IAC DEVICE documented in this encounter Visit Diagnoses Not on filedocumented in this encounter Care Teams Draw Hand Relationship Specialty Start Date End Date Kenia Lawrence, UTILITY INSPECTOR [address] [place] [address] PCP - General Family Medicine 10/10/21 05/20/22 documented as of this encounter
--- OUTSIDE RECORDS SUMMARY | 2024-09-20 11:11 | XMS_ITS | Encounter Summary ---
Author Organization Formerly [facility] [place] [address] Care Team Providers Care Director Of Early Childhood Name Role Phone MelindaKenia ford APRN Primary Care Provider [phone] Reason for Visit * Reason Comments Post-op Problem fever and swelling Encounter Details Date Type Department Care Team (Late st Contact Info) Description 11/16/2021 11:42 AM EST - 11/16/2021 3:24 PM EST [place] [id number] Pain at surgical site; Arm heaviness; Right ear pain; Cough; ICD (implantable cardioverter-defibril lator) in place; Acute otitis externa of right ear, unspecified type; Rib pain on left side Discharge Disposition: Home Social History Tobacco Use [...] Sign Reading Time Taken Comments Blood Pressure 108/78 11/16/2021 3:09 PM EST Pulse 70 11/16/2021 3:09 PM EST Temperature 37.4 ??C (99.3 ??F) 11/16/2021 3:09 PM ES T Respiratory Rate 21 11/16/2021 3:09 PM EST Oxygen Saturation 98% 11/16/2021 1:00 PM EST Inhaled Oxygen Concentration - - Weight 72.6 kg (160 lb) 11/16/2021 11:37 AM EST Height - - Body Mass Index 27.45 11/04/2021 8:00 AM EST documented in this encounter Discharge Instructions * Discharge Instructions* Jose Collins APRN - 11/16/2021 2:53 PM EST You were seen in the emergency department and evaluated for your symptoms. While you were here lab work was done as was a chest x-ray and an EKG. You were also seen by the electrophysiology tester printed circuit boards. Your work-up was overall reassuring including your labs. You received some IV fluid. Your chest x-ray did not show any obvious rib fractures on movement of the device. The area around the device was very reassuring and it does not look like there is any signs of infection. You likelyyou are having pain and discomfort from the device being there as it is quite large and the processof putting it in their causes tissue trauma. In regards to your cough it is likely still ongoing from what you went through, you also seem to have some postnasal drip which may be contributing to your cough. In regards to your right ear it looks like you have an external ear infection and you were given some drops. You are having some ongoing symptoms of reflux and we discussed some management for that. Instructions-- Change the way you are taking the famotidine, you have been prescribed famotidine 20 mg to take twice a day by mouth 30 minutes before you eat, so you will take this 30 minutes before breakfast and 30 minutes before dinner. If you still have more reflux symptoms in between that you can take Tums as needed per the instructions on the package up to twice a day. For other pain and discomfort you can take at 1000 mg of Tylenol by mouth up to 3 times a day. You can also try an [id number] patch that is used for pain called a lidocaine patch. This canbe found in your local pharmacy, ask your pharmacist help you locate this. Use per package instructions, leave the patch on for 12 hours and take off for 12 hours. For your external ear infection you should use the prescribed drops, Ciprodex. Place 4 drops into the right ear twice a day for 7 days. For your postnasal drip and cough you should use Flonase nasal spray. Use 1 spray in both your nostrils at night about 30 to 60 minutes before bed. Do this spray and a gentle breath in as instructed while pointing your nose to your toes. Do not blow your nose for 30 minutes after. This may take a couple weeks to start to help. It is very important you stay hydrated, drink 2 to 3 L of fluid a day to stay hydrated. Follow-up with your primary care provider within the next week. Return to the emergency department any new, worsening or concerning symptoms. documented in this encounter Medications at Time of Discharge Medication Sig Dispensed Refills Start Date End Date fluticasone propionate (Flonase) 50 mcg/actuation [place], SuspensionIndications: allergic rhinitis 1 spray by Each [...] of this encounter ED Notes * Darron Dewitt - 11/16/2021 2:30 PM EST Cardiology at bedside * Darron Dewitt - 11/16/2021 2:00 PM EST Over the last hour, the pt has been increasingly concerned about the weather, asked when she would be dischared. Educated by ADRIAN, this commercial real estate underwriter about the importance of waiting for assessment by cardiology. * Darron Dewitt - 11/16/2021 12:21 PM EST Pt reports sharp pain at ICD insertion site last night. She reports the area was swollen and tender, and measured a fever. She also reports 8/10 pain in her arms, jaw and ears, which she reports has continued since her hospital admission 6 days ago. She reports aching chest pain, gradually increasing since discharge. Left Side chest incision site is tender, dressings clean and dry. * Jose Collins APRN - 11/16/2021 11:50 AM EST Images from the original note were not included. Patient Name: Aniya Luque Patient Age: 36 y.o. Patient : 1985 Encounter Date: 11/16/2021 Chief Complaint Post-op Problem (fever and swelling) History of Present Illness Aniya Luque is a 36 y.o. female who presents for evaluation of right ear and jaw pain, pain around ICD, arm fatigue and increased coughing. Past medical history notable for depression, borderline personality disorder, anxiety, PTSD, asthma, hypertension, history of COVID-19, coronary artery vasospasm, V. fib cardiac arrest, ICD, tobacco use. She comes in today for fever up to 101.5, swelling and redness around her recently implanted ICD. She has noted a couple nights ago that the area in her left lateral chest. Yesterday she rolled over in this sharp pain and felt like something moved. They looked and felt like there is a lump in the area. She last took Tylenol this morning. She did have a slight headache earlier but that was resolved with the Tylenol. She also notes for the past couple days having some discomfort in her inner right ear and into her jaw when she chews. She denies any dental pain. No discharge from the ear. She does not comfort withswallowing. She does note ongoing unchanged feelings of shortness of breath but she has noticed that her cough has been more frequent. She does have frequent clearing of her throat. She does have asthma but is not taking any inhalers. She is smoking a few cigarettes a day has been using some nicotine gum. She reports that in terms of her arm she endorses a heavy weak feeling in both of her arms with theright being worse than the left. This has been ongoing since her hospitalization. She may be has some intermittent tingling in her right fingers but denies other sensation changes. She has had some intermittent episodes of chest discomfort which she more attributes with a sensation of having to cough. She has taken sublingual nitro intermittently which has helped with the chestdiscomfort and to perhaps some extent the feeling in her arms. She does not describe the sensation of arms as radiating arm pain but more of a general fatigued, heavy feeling. No numbness or tingling in her legs. She has no linguistic a little increased swelling in her feet.No abdominal pain, nausea or vomiting. No change to her bowel or bladder. Patient was admitted from 11/04 through 11/14 after suffering an out of hospital V. fib arrest and subsequent multiple V. fib arrest felt to be secondary to diffuse large vessel and coronary vasospasm due to recent Covid infection (09/27/2021) and tobacco use. She ultimately had a subcutaneous ICD placed on 11/10 after an arrest in the Phone [employer]. She was discharged on amlodipine, atorvastatin and sublingual nitro. Her lisinopril was increased. The history is provided by the patient and EMR. Review of Systems ROS as above with pertinent positives and negatives, otherwise 10 systems are reviewed and negative. PMH, PSH, SH, medications and allergies reviewed & updated in chart as appropriate. Physical Exam BP 116/77 Pulse 72 Temp 36.8 ??C (98.2 ??F) (Oral) Resp 16 Wt 72.6 kg (160 lb) LMP 11/08/2021 SpO2 98% BMI 27.45 kg/m?? Physical Exam Constitutional: Appearance: Normal appearance. She is ill-appearing (chronically). HENT: Head: Normocephalic. Right Ear: Tympanic membrane normal. Left Ear: Tympanic membrane and ear canal normal. Ears: Comments: Mild erythema and inflammation in right EAC. Tenderness anterior to right tragus, no mastoid tenderness. Nose: Nose normal. Mouth/Throat: Mouth: Mucous membranes are moist. Comments: No jaw swelling, no trismus. Eyes: Extraocular Movements: Extraocular movements intact. Cardiovascular: Rate and Rhythm: Normal rate and regular rhythm. Pulses: Radial pulses are 2+ on the right side and 2+ on the left side. Pulmonary: Effort: Pulmonary effort is normal. Breath sounds: Normal breath sounds. Chest: Chest wall: Tenderness (left lateral) present. Abdominal: General: Bowel sounds are normal. Palpations: Abdomen is soft. Tenderness: There is no abdominal tenderness. Musculoskeletal: Cervical back: Normal range of motion and neck supple. Comments: Movement of all 4 extremities is equal and symmetric x4. Strength of bilateral upper extremities at shoulders, elbows including tricep and bicep, wrists and fingers is equal and strong without focal or localizing findings. Sensation is intact equally. Skin: General: Skin is warm and dry. Capillary Refill: Capillary refill takes less than 2 seconds. Neurological: General: No focal deficit present. Mental Status: She is alert and oriented to person, place, and time. Psychiatric: Mood and Affect: Affect normal. Mood is anxious. Speech: Speech normal. Behavior: Behavior is cooperative. ED Course ED Course as of 11/16/21 1459 FriNov 16, 2021 1246 EKG 12 Lead EKG reviewed and compared to previous EKG. Sinus rhythm, T wave inversion is no longer present in V2 and V3, nonspecific, unchanged ST abnormalities noted in V4 through V6. 1310 WBC(!): 13.2 1310 Hemoglobin(!): 10.7 1336 Troponin-T: <0.01 1336 TSH: 2.96 1353 Appearance UA(!): Cloudy 1353 Leukocytes UA(!): Trace 1353 Yeast [place] UA(!): Occasional 1353 Bacteria UA(!): Rare 1353 Squam Epith UA(!): 19 1353 Urinalysis with reflex Culture(!) Does not suggest UTI, appears contaminated, no UTI sx 1353 CK, Total(!): 486 Was 135 12 days ago 1353 Basic Metabolic Panel (non-fasting) 1355 Cardiology paged [phone] Asked by nursing to go see patient as she was looking to leave. Patient expressed desire to leave at this time. We discussed that we did not have her work-up back and that if she did leave it would be against my medical advice. Patient agrees to stay for another half hour and reevaluate at that time. 1430 XR Ribs AP, Oblique & PA Chest Left (Generic) No acute fracture or change in alignment of ICD, no acute cardiopulmonary process, no visible rib fracture. History, examination Vitals, nursing notes reviewed Diagnostics Reviewed and interpreted independently Imaging XR Ribs AP, Oblique & PA Chest Left (Generic) Final Result 1. No acute fracture or change in alignment of ICD. 2. No acute cardiopulmonary process. 3. No visible rib fracture. I have personally reviewed the image(s) and the resident's interpretation and agree with the findings, Ahsan Olivares MD at 11/16/2021 2:20 PM Thank you for letting us participate in the care of this patient. If you are a health care provider and have any questions regarding this report, please contact the number below. For patients who have questions please contact the health hospice spiritual care coordinator that requested your imaging first. Electronically signed by: Ahsan Olivares MD, [facility] ([phone]), at 11/16/2021 2:20 PM XR Ribs AP, Oblique & PA Chest Right (Generic) (Results Pending) Labs Recent Results (from the past 24 hour(s)) Basic Metabolic Panel (non-fasting) Result Value Ref Range Glucose Lvl 97 65 - 199 mg/dL BUN 16 8 - 18 mg/dL Creatinine 0.91 0.70 - 1.20 mg/dL Sodium 138 135 - 145 mmol/L Potassium 4.3 3.5 - 5.0 mmol/L Chloride 103 98 - 107 mmol/L CO2 24 22 - 31 mmol/L Anion Gap 11 5 - 15 mmol/L Calcium 9.7 8.5 - 10.5 mg/dL Estimated GFR 81 >=60 mL/min/1.73 m?? TSH [place] Result Value Ref Range TSH 2.96 0.27 - 4.20 mcIU/mL Troponin Result Value Ref Range Troponin-T <0.01 0.00 - 0.00 ng/mL Hemogram Result Value Ref Range WBC 13.2 (H) 4.0 - 9.5 x10(3)/mcL RBC 4.07 4.00 - 5.21 x10(6)/mcL Hemoglobin 10.7 (L) 11.7 - 15.5 g/dL Hematocrit 33.6 (L) 35.7 - 45.8 % MCV 82.6 82.6 - 94.4 fL MCH 26.3 (L) 27.1 - 32.0 pg MCHC 31.8 31.7 - 35.0 g/dL Platelets 563 (H) 145 - 357 x10(3)/mcL RDWSD 52.1 (H) 37.0 - 46.0 fL RDWCV 17.7 (H) 11.5 - 14.1 % MPV 10.9 7.6 - 12.9 fL nRBC % Auto 0.0 % nRBC Abs Auto 0.000 0.000 - 0.000 x10(3)/mcL Differential, Automated Result Value Ref Range Neutrophils % 62.4 % Neutr Abs (ANC) 8.27 (H) 1.70 - 6.10 x10(3)/mcL Lymphocytes % 23.1 % Lymphocytes Abs 3.1 0.9 - 3.2 x10(3)/mcL Monocytes % 6.1 % Monocyte Abs 0.8 0.3 - 0.9 x10(3)/mcL Eosinophils % 6.6 % Eosinophils Abs 0.9 (H) 0.0 - 0.4 x10(3)/mcL Basophils % 0.8 % Basophils Abs 0.1 0.0 - 0.1 x10(3)/mcL Immature Gran % 1.00 % [place] Gran Abs 0.13 (H) 0.00 - 0.04 x10(3)/mcL CK Result Value Ref Range CK, Total 486 (H) 0 - 160 unit/L Urinalysis with reflex Culture Specimen: Urine Result Value Ref Range Glucose UA Negative Negative mg/dL Protein UA Negative Negative mg/dL Bilirubin UA Negative Negative mg/dL Urobilinogen UA Normal Normal mg/dL pH UA 6.0 5.0 - 8.0 Blood UA Negative Negative mg/dL Ketones UA Negative Negative mg/dL Nitrite UA Negative Negative Leukocytes UA Trace (A) Negative mcL Appearance UA Cloudy (A) Clear Spec [place] UA 1.016 1.005 - 1.030 Color UA Yellow Yellow Culture Reflexed No Urinalysis Microscopic Exam Result Value Ref Range RBC UA 1 0 - 4 /HPF WBC UA 7 (H) 0 - 5 /HPF Bacteria UA Rare (A) None /HPF Yeast [place] UA Occasional (A) None /HPF Squam Epith UA 19 (H) <=4 /HPF Hyaline [place] UA 2 0 - 2 /LPF POCT urine Result Value Ref Range POC Urine HCG Negative Negative - Negative POC Control Internal Controls Acceptable Medications As noted below and documented in MAR Medications ciprofloxacin-dexamethasone (Ciprodex) 0.3-0.1 % otic suspension 4 drop (4 drops Right Ear Given 11/16/21 1421) lidocaine (Lidoderm) 5% patch 1 patch (1 patch Transdermal Patch Applied 11/16/21 1245) And lidocaine (Lidoderm) topical patch REMOVAL (has no administration in time range) sodium chloride 0.9% 500 mL IV bolus ( Intravenous New Bag 11/16/21 142) Procedures None MDM, Assessment and Plan MDM: 36 y.o. female with increasing pain at ICD placement site, intermittent fevers, right ear pain, armheaviness. On initial presentation patient is afebrile and hemodynamically stable. Physical exam notable as above. Initial plan is for labs, U/A with reflex culture, urine , EKG and CXR. Labs are notable as above, mild leukocytosis which is unchanged, stable and reassuring H&H. Unremarkable TSH and undetectable troponin. Chest x-ray does not reveal any acute findings, any obviouscomplications with the ICD and no rib fractures. EKG nonischemic. CK was mildly elevated and patient has not been eating or drinking very well and urinalysis does not note blood so low suspicion for rhabdomyolysis. Cardiology/EP was consulted and they have come down evaluate patient. They are reassured by evaluation of the ICD site. I am as well and I do not have any suspicion for site infection. She is afebrile here. Guards to her right your toes. She has otitis externa and otic drops were ordered. No mastoid tenderness, no erythema of the external ear and no evidence of OEM. She has no trismus and no obvious dental infection. No headache at this time. Low suspicion for mastoiditis, GCA. As pain is reproducibleI do not think this is referred cardiac pain. In regards to her her arm heaviness and complaints, she has no focal neurological findings, sensation is fully intact and strength is as well. Patient did just recently undergo a pretty invasive procedure and complicated admission. I suspect this may besome sequela just from prolonged hospitalization. I do not think she has rhabdomyolysis, I do not think this is an acute neurological event. She may be endorses some vague improvement or change with the sublingual nitro although this does not seem to necessarily be an anginal equivalent. Rx for cough, it is nonproductive and on chest x-ray there is no evidence of effusion or infiltrate. She does have frequent throat clearing while in the room. She does also have a cough post Covid. I suspect diego e postnasal drip may be contributing to this and she does have a history of asthma. We discussed using Flonase. In regards to her reflux, there was some question whether she may be having esophageal spasms. She has been taking Pepcid once a day and they recommended her avoiding Gaviscon. I discussed that I would like her to start taking Pepcid twice a day before meals and occasional use of Tums. For her generalized pain we discussed Tylenol and lidocaine patch. He did recommend she follow-up closely with her primary care provider within the next week. Overall I am reassured against the above-mentioned diagnosis, additionally have low suspicion for ACS, complication with ICD, pneumothorax, acute neurological event. ASSESSMENT: 1. Pain at surgical site 2. Arm heaviness 3. Right ear pain 4. Cough 5. ICD (implantable cardioverter-defibrillator) in place 6. Acute otitis externa of right ear, unspecified type 7. Rib pain on left side PLAN/DISPO: Follow up with Kenia Lawrence APRN in 1 week Discharge instructions per AVS Return precautions were discussed with the patient; patient expressed understanding and is in agreement with plan New Prescriptions ACETAMINOPHEN (TYLENOL) 500 MG TABLET Take 2 tablets by mouth every 8 hours as needed for Pain. Substitute OTC if needed CIPROFLOXACIN-DEXAMETHASONE (CIPRODEX) 0.3-0.1 % DROPS, SUSPENSION Place 4 drops into the right ear2 times daily for 7 days. FAMOTIDINE (PEPCID) 20 MG TABLET Take 1 tablet by mouth 2 times daily (before meals). Substitute with OTC as needed FLUTICASONE PROPIONATE (FLONASE) 50 MCG/ACTUATION SPRAY, SUSPENSION 1 spray by Each Nare route nightly. Substitute OTC if needed Indications: inflammation of the nose due to an allergy Discharge to home This note was dictated, at least, in part with [employer] Dictation software. PPE worn during this encounter: N95 mask and Plastic safety goggles Jose Collins APRN 11/16/21 1500 * Celso Calabrese MD - 11/16/2021 11:33 AM EST Telehealth [id number] Note: The following documentation is provided in my role as a TeleEmergency Physician and reflects a live audiovisual interaction. Brief HPI: Had recent defibrillator placed, has swelling at incision site, fever (101.5, took tylenol) and pain, sent in by cardiology Brief Physical Exam: Vital signs reviewed General appearance: mildly uncomfortable appearing, speaking clearly, in no respiratory distress Tests Ordered: pending further evaluation The patient is awaiting a bed in the Emergency Department. Celso Calabrese MD 11/16/21 1143 documented in this encounter Miscellaneous Notes * Consult Note - Pantera Denton MD - 11/16/2021 3:12 PM EST Images from the original note were not included. Cardiac Electrophysiology Consult Note Date of Consultation: 11/16/2021 Admit Date: 11/16/2021 Place of Service: Emergency Department Responsible Attending: Dr. Denton Reason for Consult: We are seeing Aniya Luque for the evaluation of fever status post device placement. I have reviewed the available records, interviewed and examined the patient. Active Problem List: Patient Active Problem List Diagnosis ??? Subcutaneous defibrillator implanted 11/12/2019 Overview Note: Pulse generator: Emblem MRI S-ICD Pulse Generator Model A219 Serial Number [id number] Implanted 11/12/21 Ventricular electrode: SQ electrode Model 3501 Bipolar Serial Number [id number] Implanted 11/12/21 ??? Cigarette smoker ??? Coronary artery vasospasm ??? *History of COVID-19 ??? Cardiac arrest ??? Gastroesophageal reflux disease Overview Note: Added automatically from request for surgery [id number] ??? Borderline personality disorder ??? Post-traumatic stress disorder, chronic ??? Anxiety disorder, unspecified Overview Note: The patient is a 34-year-old woman who presented with worsening anxiety surrounding nonspecific somatic complaints such as full body tingling. She has a number of existing medical issues such as HTN,asthma, and GERD, the symptoms of which (e.g. heartburn, cough) tend to provoke her anxiety. ??? Chest pain Overview Note: ETT 2013- negative ST III Echo 2013 ??Normal LV size and function, trivial TR, mild PI ??? Skin disease ??? Anxiety ??? Depression ??? Asthma Overview Note: Rx PRN albuterol Pulmonary workup negative 2007 (in [facility]) ??? Hypertension Overview Note: Onset 2013, variable BP highs of 160-170 systolic, then normal ??? Tachycardia History of Present Illness: Aniya Luque is a 36 y.o. female with a history of VF arrest due to coronary vasospasm status post subcutaneous implantable cardiac defibrillator on November 12 who presents for approximately 12-hour history of fever and discomfort around the device site. She continues to have respirophasic chest discomfort and a cough productive of clear phlegm. The highest fever she measured at home was 101 ??F. She is also complaining of pain around the right ear that radiates to the jaw. She is otherwisein her usual state of health. EP is called to examine the device site. Review of Systems: Constitutional: - fatigue, +fever, - chills Respiratory: - shortness of breath, + productive of clear phlegm cough, - apnea, - wheezing Cardiovascular: + Respirophasic chest pain, - palpitations, - unusual rates Gastrointestinal: - nausea, - vomiting, - abdominal pain, - diarrhea Neurological: - lightheadedness, - dizziness, - syncope, - weakness Psychiatric: - anxious PMH: Past Medical History: Diagnosis Date ??? *History of COVID-19 11/05/2021 ??? Anorexia ??? Anxiety 08/03/2014 ??? Asthma 08/03/2014 ??? Flaherty's palsy ??? Chest pain 01/17/2016 ETT 2014- negative ST III Echo 2014 ??Normal LV size and function, trivial TR, mild PI ??? 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 Depression ??? Headache ??? Hypertension 08/03/2014 Pertinent Medications: Current Facility-Administered Medications Ordered in [facility] Medication Dose Route Frequency Provider Last Rate Last Admin ??? ciprofloxacin-dexamethasone (Ciprodex) 0.3-0.1 % otic suspension 4 drop 4 drop Right Ear BID [place], Jose, [employer] 4 drop at 11/16/21 1421 ??? lidocaine (Lidoderm) 5% patch 1 patch 1 patch Transdermal Q24H [place], Jose, [employer]ER 1 patch at 11/16/21 1245 And ??? 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 ciprofloxacin-dexamethasone (Ciprodex) 0.3-0.1 % Drops, Suspension Place 4 drops into the rightear 2 times daily for 7 days. 7.5 mL 0 ??? famotidine (Pepcid) 20 mg Tablet Take 1 tablet by mouth 2 times daily (before meals). Substitute with OTC as needed 60 tablet 0 ??? fluticasone propionate (Flonase) 50 mcg/actuation [place], Suspension [...] Housing Stability: Not on file Physical Exam: Vital signs: Vitals: 11/16/21 1137 11/16/21 1200 11/16/21 1300 11/16/21 1400 BP: 116/79 115/71 111/79 116/77 BP Location (NBP): Left arm Pulse: 82 79 73 72 Resp: Temp: 36.8 ??C (98.2 ??F) TempSrc: Oral SpO2: 99% 99% 98% Weight: 72.6 kg (160 lb) General- No acute distress, laying comfortably in bed HEENT- Head atraumatic, normocephalic. Right tympanic membrane somewhat erythematous. No sinus tenderness. No pharyngeal erythema. Skin- No ulcers, rashes or wounds. Device site appears clean dry and intact both new around the canand around the sternal coil. There is no hematoma or fluctuance. There is no cellulitis. Neck- No JVD noted Cardiovascular- S1/S2 regular rate and rhythm. No murmur, rub or gallop Lungs- Clear to auscultation bilaterally Extremities- Pulses equal bilaterally. No edema noted Neuro- A&Ox3 Telemetry: Normal sinus rhythm, no events ECG: Normal sinus rhythm Labs: Lab Results Component Value Date WBC 13.2 (H) 11/16/2021 HGB 10.7 (L) 11/16/2021 HCT 33.6 (L) 11/16/2021 PLATELET 563 (H) 11/16/2021 No results for input(s): INR in the last 168 hours. Lab Results Component Value Date NA 138 11/16/2021 K 4.3 11/16/2021 CL 103 11/16/2021 BUN 16 11/16/2021 CREATININE 0.91 11/16/2021 MAGNESIUM 0.80 11/14/2021 Diagnostic Results: Media Information Document Information Photographic Image: Photographs - Images 11/16/2021 14:24 Attached To: Hospital Encounter on 11/16/21 Source Information Magdi Dang MD [facility] Ed Chest x-ray Portable chest x-ray today shows no infiltrate, no pleural effusion, and device situated as expected Assessment: Aniya Luque is a 36 y.o. female with no known history of CV illness who was admitted 27:20 AM after suffering VF arrest in the field which occurred again after injection of her left main coronary artery and is thus presumed due to severe coronary vasospasm. She was status post placement of a subcutaneous implantable cardiac defibrillator on November [address] Denton. She presents to emergency department today complaining of fever measured at T-max of 101 ??F and tenderness aroundthe device site. Our exam shows a benign pocket with no signs of site infection. It is possible that she has a middle ear/sinus infection that could explain her fevers. Sometimes postop inflammation may also result in relatively low-grade fevers and this was a procedure that required substantial soft tissue dissection. Overall we are not concerned about the site at this time. Recommendations: 1. No apparent complications with the patient's device 2. No contraindication to discharge from EP perspective 3. Routine follow-up as previously arranged Case discussed with Dr. Dneton Recommendations are above, please page if further consultation required. Magdi Dang MD 11/16/2021 3:13 PM Pager: [phone] Service Pager: [phone] Addendum I personally interviewed and examined the patient, reviewed the surgical sites. The implant sites appear to be healing as expected and do no appear to be overtly showing concerning sings of infection. It would be reasonable to consider alternative explanations for her pyrexial symptoms - she is complaining of right neck/ear pain and has an elevated WBC (which is declining from her recent discharge). She was treated for an aspiration PNA while inpatient. She will be following up in our device clinic next week. PANTERA DENTON MD * Associate Provider Student Progress Note - Roseann Ledesma - 11/16/2021 12:39 PM ESTSummary: ICD post-op Images from the original note were not included. Patient Name: Aniya Luque Patient Age: 36 y.o. Patient : 1985 Encounter Date: 11/16/2021 Chief Complaint Post-op Problem (fever and swelling) History of Present Illness Aniya Luque is a 36 y.o. female with PMH of cardiac arrest s/p defibrillator implanted 11/12/21, HTN, GERD, anxiety, and borderline personality disorder who presents for evaluation of fever, swelling, right ear/jaw pain, and arm weakness x2days. She was discharged from the hospital on 11/14. Shestates that last night she readjusted her position while laying down and felt a pain near her surgical site that she describes as a shock. She asked her fiance to inspect the area and they are concerned with a hard, swollen area near the bandage. She has felt a headache as well as feverish with chills and reports elevated temperature at home up to 101.5 both of which improved with Tylenol. Separately, she has new right ear and jaw pain since her discharge from the hospital. She states that two nights ago, 11/14, she started to feel some pain deep in her ear and itchiness. The pain has escalated and she now has difficulty opening her mouth and chewing food due to the pain. She denies changes in her hearing, neck pain with movement, or discharge from her ear. She is also complaining of bilateral arm pain and weakness. She describes the pain as a constant, sharp, 8/10 that feels as though she was working out. This has been ongoing since her surgery and hasnot improved. She denies new or worsening SOB, dyspnea, pain with inspiration, nausea/vomiting, abdominal pain, lightheadedness, dizziness, anorexia, dysuria, or bowel movement changes. She does admit to smoking cigarettes infrequently since discharge from the hospital. She denies alcohol or drug use since discharge. The history is provided by the patient. Review of Systems Constitutional: Positive for fever, malaise/fatigue and chills. Negative for anorexia and weight loss. Respiratory: Positive for chest discomfort and increased sputum. Negative for cough, shortness of breath, hemoptysis and pleuritic pain. Clear sputum Genitourinary: No dysuria Gastrointestinal: Negative for abdominal discomfort, vomiting, GERD, constipation, nausea and diarrhea. Hematologic/Lymphatic: Negative for adenopathy. Musculoskeletal: Positive for myalgias. Negative for stiffness. Cardiovascular: Negative for palpitations and leg edema. Neurological: Positive for headaches. Negative for vertigo and hearing loss. Skin: Negative for erythema. PMH, PSH, SH, medications and allergies reviewed. Physical Exam BP 116/79 (BP Location (NBP): Left arm) Pulse 82 Temp 36.8 ??C (98.2 ??F) (Oral) Resp 16 Wt72.6 kg (160 lb) LMP 11/08/2021 SpO2 99% BMI 27.45 kg/m?? Physical Exam Constitutional: Appearance: She is normal weight. HENT: Head: Atraumatic. Right Ear: Tympanic membrane and external ear normal. Tenderness present. No drainage. There is no impacted cerumen. No foreign body. No mastoid tenderness. Left Ear: Tympanic membrane and external ear normal. Neck: Trachea: Phonation normal. Cardiovascular: Rate and Rhythm: Normal rate and regular rhythm. Pulses: Normal pulses. Radial pulses are 2+ on the right side and 2+ on the left side. Posterior tibial pulses are 2+ on the right side and 2+ on the left side. Heart sounds: Normal heart sounds. Pulmonary: Effort: Pulmonary effort is normal. Breath sounds: Normal breath sounds. Abdominal: General: Abdomen is flat. Palpations: Abdomen is soft. Tenderness: There is no abdominal tenderness. Musculoskeletal: General: Normal range of motion. Back: Right lower leg: No edema. Left lower leg: No edema. Skin: General: Skin is warm and dry. Findings: No bruising or erythema. Comments: Well healed incision, no redness or drainage Neurological: General: No focal deficit present. Mental Status: She is alert and oriented to person, place, and time. ED Course Diagnostics Imaging XR Ribs AP, Oblique & PA Chest Right (Generic) (Results Pending) Labs No results found for this or any previous visit (from the past 24 hour(s)). Medications As noted below and documented in MAR Medications ciprofloxacin-dexamethasone (Ciprodex) 0.3-0.1 % otic suspension 4 drop (has no administration in time range) lidocaine (Lidoderm) 5% patch 1 patch (has no administration in time range) And lidocaine (Lidoderm) topical patch REMOVAL (has no administration in time range) MDM, Assessment and Plan MDM: 36 y.o. female with history of cardiac arrest s/p defibrillator implanted 11/12/21 with back pain, myalgia, and ear pain x2 days. On initial presentation patient is afebrile and hemodynamically stable. Physical exam is notable for right ear pain with exam, erythematous canal, well healed incision without erythema or drainage, and swelling/tenderness on left posterior/lateral ribs. Initial plan is for labs, U/A with reflex culture, CXR and XR left ribs. Pertinent diagnostic findings: ICD has not moved on XR since placement, negative troponin, moderately elevated CK, and negative UA. Differential dx: Consideration was given to surgical site infection, sub-acute rib fracture, IL. Based on history and findings; negative troponin, normal EKG, negative XR, normal healing surgical site, these were felt to be unlikely. Regarding ear pain: Consideration was given to dental infection, referred cardiac pain, otitis media. Based on history and findings; normal dentition without pain, normal cardiac workup, and normal TM, these were felt to be unlikely. ASSESSMENT: 1. Left posterior rib pain s/p surgical procedure 2. Otitis externa 3. Bilateral arm pain s/p cardiac events PLAN/DISPO: Follow up with Kenia Lawrence APRN in one week. Discharge instructions per AVS Return precautions were discussed with the patient; patient expressed understanding and is in agreement with plan Discharge to home PPE worn during this encounter: N95 mask and Plastic safety goggles Signed: YESI Hernández Associated attestation - Jose Collins APRN - 11/16/2021 10:23 PM EST Note for educational purposes only. Please refer to my note for emergency department provider note. * ED Triage - Dariela Morris RN - 11/16/2021 11:39 AM EST HPI (Adult) Stated Reason for Visit: She woke up with swelling around pot op site after they placed a defrillator 6 days ago. Also she had a fever 101.5 at home and I gave her tylenol. History Obtained From: patient,family Pt. Presents with post op swelling posterior to site of newlyimplanted defrillator 1 week ago here. Pt. Also had a fever this am of 101.5F and increase pain. documented in this encounter Plan of Treatment Upcoming Encounters Date Type Department Care Team (Late st Contact Info) Description 09/21/2024 8:15 AM EST Routine Obstetrics [place] [address] Emili Cabrera MD [facility] [place] [address] 09/26/2024 6:00 PM EST Appointment [facility] [place] [address] 10/16/2024 [place] [address] Dudley Aguilar MD [facility] [address] OBST[place] [address] 11/08/2024 10:00 AM EST Hospital Encounter Non-[place] [address] Arrived documented as of this encounter Procedures Procedure Name Priority Date/Time Associated Diagnosis Comments CK Add-On 12/26/2021 7:06 AM EST XR RIBS AP, OBLIQUE LEFT AND PA CHEST STAT 11/16/2021 1:31 PM EST POCT URINE STAT 11/16/2021 1:01 PM EST URINALYSIS MICROSCOPIC EXAM STAT 11/16/2021 12:47 PM EST URINALYSIS WITH REFLEX CULTURE STAT 11/16/2021 12:47 PM EST HC THYROID STIMULATING HORMONE, SERUM STAT 11/16/2021 12:32 PM EST HEMOGRAM STAT 11/16/2021 12:32 PM EST DIFFERENTIAL, AUTOMATED STAT 11/16/2021 12:32 PM EST HC CBC,PLT & AUTO DIFF STAT 11/16/2021 12:32 PM EST HC TROPONIN T STAT 11/16/2021 12:32 PM EST CK STAT 11/16/2021 12:32 PM EST BASIC METABOLIC PANEL STAT 11/16/2021 12:32 PM EST EKG 12-LEAD STAT 11/16/2021 12:19 PM EST documented in this encounter Results * CK (12/26/2021 7:06 AM EST) Beta Human Chorionic Gonadotropin, Quantitative 38,731 Blood 12/26/2021 7:06 AM EST Jose Bacaicoa [employer] CHEMISTRY ORDERABLES * XR Ribs AP, Oblique & PA Chest Left (Generic) (11/16/2021 1:31 PM EST) Anatomical Region Laterality Modality Chest Left Digital Radiogra phy Impressions 11/16/2021 2:20 PM EST 1. ??No acute fracture or change in alignment of ICD. 2. ??No acute cardiopulmonary process. 3. ??No visible rib fracture. I have personally reviewed the image(s) and the resident's interpretation and agree with the findings, Ahsan Olivares MD at 11/16/2021 2:20 PM Thank you for letting us participate in the care of this patient. ??If you are a health care provider and have any questions regarding this report, please contact the number below. ??For patients who have questions please contact the health hospice spiritual care coordinator that requested your imaging first. ? Electronically signed by: Ahsan Olivares MD, [facility] ([phone]), at 11/16/2021 2:20 PM Narrative 11/16/2021 2:20 PM EST EXAMINATION: XR RIBS AP, OBLIQUE AND PA CHEST LEFT (GENERIC) CLINICAL HISTORY: pain around ICD, CPR hx, eval fracture, ICD placement TECHNIQUE: PA view of the chest as well as AP views of the left and right ribs and oblique views of the left ribs. COMPARISON: Chest radiograph 11/13/2021. FINDINGS: No visible rib fracture. The lungs are clear. There is no pneumothorax or pleural effusion. The cardiomediastinal silhouette is unremarkable. There is unchanged position of left-sided ICD with single lead projecting over the midline sternum. Procedure Note Ahsan Olivares MD - 11/16/2021 EXAMINATION: XR RIBS AP, OBLIQUE AND PA CHEST LEFT (GENERIC) CLINICAL HISTORY: pain around ICD, CPR hx, eval fracture, ICD placement TECHNIQUE: PA view of the chest as well as AP views of the left and right ribs andoblique views of the left ribs. COMPARISON: Chest radiograph 11/13/2021. FINDINGS: No visible rib fracture. The lungs are clear. There is no pneumothorax or pleural effusion. The cardiomediastinal silhouette is unremarkable. There is unchanged positionof left-sided ICD with single lead projecting over the midline sternum. IMPRESSION 1. No acute fracture or change in alignment of ICD. 2. No acute cardiopulmonary process. 3. No visible rib fracture. I have personally reviewed the image(s) and the resident's interpretationand agree with the findings, Ahsan Olivares MD at 11/16/2021 2:20 PM Thank you for letting us participate in the care of this patient. If youare a health care provider and have any questions regarding this report,please contact the number below. For patients who have questions please contactthe health hospice spiritual care coordinator that requested your imaging first. Electronically signed by: Ahsan Olivares MD, [facility]([phone]), at 11/16/2021 2:20 PM Jose Bacaicoa [employer] IMG DX ORDERABLES * POCT urine (11/16/2021 1:01 PM EST) Pathologist [facility] POC Urine HCG Negative Negative - Negative POC Control Internal Controls Acceptable 11/16/2021 1:01 PM EST Jose Bacaicoa [employer] POINT OF CARE TEST O RDERABLES * (ABNORMAL) Urinalysis Microscopic Exam (11/16/2021 12:47 PM EST) Pathologist [facility] RBC, Urine 1 0 - 4 /HPF [facility] WBC, Urine 7(H) 0 - 5 /HPF [facility] Bacteria, Urine Rare(A) None /HPF [facility] Budding Yeast, Urine Occasional (A) None /HPF [facility] Squamous Epithelial Cells Raw Data, Urine 19(H) <=4 /HPF [facility] Hyaline Casts, Urine 2 0 - 2 /LPF [facility] Urine 11/16/2021 12:4 7 PM EST 11/16/2021 1:00 PM EST Narrative Resulting Agency Comment Spec In Lab Jose Bacaicoa [employer] URINE ORDERABLES [facility] [place] [address] * (ABNORMAL) Urinalysis with reflex Culture (11/16/2021 12:47 PM EST) Glucose, Urine Dipstick Negative Negative mg/dL [facility] Protein, Urine Dipstick Negative Negative mg/dL [facility] Bilirubin, Urine Dipstick Negative Negative mg/dL [facility] Comment: Clinical correlation required for positive Urine Bilirubin results as false positive may occur with some drugs and drug related products. If a false positive is suspected a serum total bilirubin should be considered if clinically indicated. Urobilinogen, Urine Dipstick Normal Normal mg/dL [facility] pH, Urn (dipstick) 6.0 5.0 - 8.0 [facility] Blood, Urine Dipstick Negative Negative mg/dL [facility] Ketone, Urine Dipstick Negative Negative mg/dL [facility] Nitrite, Urine Dipstick Negative Negative [facility] Leukocytes, Urine Dipstick Trace(A) Negative [facility] Appearance, Urine Dipstick Cloudy(A) Clear [facility] Specific [place] Urine Automated 1.016 1.005 - 1.030 [facility] Color, Urine Dipstick Yellow Yellow [facility] Reflex to Culture No [facility] Urine 11/16/2021 12:4 7 PM EST 11/16/2021 1:00 PM EST Narrative Resulting Agency Comment Spec In Lab Jose Bacaicoa [employer] URINE ORDERABLES Performing Organization Address [facility] de Phone Number [facility] [place] [address] * (ABNORMAL) CK (11/16/2021 12:32 PM EST) Creatine Kinase 486(H) 0 - 160 unit/L [facility] Blood Venous Draw / Unknown 11/16/2021 12:32 PM EST 11/16/2021 12:56 PM EST Narrative Resulting Agency Comment Spec In Lab Jose Bacaicoa [employer] CHEMISTRY ORDERABLES Performing Organization Address City/[facility]/ZIP Co de Phone Number [facility] [place] [address] * (ABNORMAL) Differential, Automated (11/16/2021 12:32 PM EST) Neutrophil % 62.4 % [facility] Neutrophil Absolute 8.27(H) 1.70 - 6.10 x10(3)/mc L [facility] Lymph % 23.1 % [facility] Lymphocytes Abs 3.1 0.9 - 3.2 x10(3)/mc L [facility] Monocyte % 6.1 % [facility] Monocyte Abs 0.8 0.3 - 0.9 x10(3)/ L [facility] Eos % 6.6 % [facility] Eosinophils Abs 0.9(H) 0.0 - 0.4 x10(3)/ L [facility] Basophil % 0.8 % [facility] Baso Absolute 0.1 0.0 - 0.1 x10(3)/ L [facility] Immature Gran % 1.00 % [facility] Comment: Immature granulocytes(IG's)percentage and absolute count will include metamyelocytes, myelocytes, and promyelocytes. Blood smears from CBCs yielding IG's will be scanned manually for concordance. If this scan disagrees with the automated IG or if promyelocytes are noted, a manual differential will be performed. Immature Gran Absolute 0.13(H) 0.00 - 0.04 x10(3)/mc L [facility] Blood 11/16/2021 12:3 2 PM EST 11/16/2021 12:42 PM EST Narrative Resulting Agency Comment Spec In Lab Jose Bacaicoa [employer] HEMATOLOGY ORDERABLE S Performing Organization Address City/[facility]/ZIP Co de Phone Number [facility] [place] [address] * (ABNORMAL) Hemogram (11/16/2021 12:32 PM EST) [facility] White Blood Cell 13.2(H) 4.0 - 9.5 x10(3)/mc L [facility] Red Blood Cell 4.07 4.00 - 5.21 x10(6)/mc L [facility] Hemoglobin 10.7(L) 11.7 - 15.5 g/dL [facility] Hematocrit 33.6(L) 35.7 - 45.8 % [facility] Mean Cell Volume 82.6 82.6 - 94.4 fL [facility] Mean Cell Hemoglobin 26.3(L) 27.1 - 32.0 pg [facility] Mean Cell Hemoglobin Concentration 31.8 31.7 - 35.0 g/dL [facility] Platelet 563(H) 145 - 357 x10(3)/[facility] RDW Standard Deviation 52.1(H) 37.0 - 46.0 fL [facility] RDW coefficient of variation 17.7(H) 11.5 - 14.1 % [facility] Mean Platelet Volume 10.9 7.6 - 12.9 fL [facility] NRBC% auto 0.0 % [facility] NRBC Absolute 0.000 0.000 - 0.000 x10(3)/[facility] Blood 11/16/2021 12:3 2 PM EST 11/16/2021 12:42 PM EST Narrative Resulting Agency Comment Spec In Lab Jose Collins [employer] HEMATOLOGY ORDERABLE S [facility] [place] [address] * Troponin (11/16/2021 12:32 PM EST) [facility] Troponin-T <0.01 0.00 - 0.00 ng/mL [facility] Comment: The 99th percentile for Troponin T is less than 0.01 ng/mL, any detectable cTnT concentration using this assay should be considered elevated. According to the third universal definition of myocardial infarction the following criteria with a clinical presentation consistent with acute myocardial ischemia meets the diagnosis for a myocardial infarction (IL). Detection of a rise and/or fall of cTnT, with at least one value greater than the 99th percentile (> or = 0.01) and with at least one of the following ?? Symptoms of ischemia ?? New or presumed new significant GX-[id number]-Q wave (ST-T) changes or new left bundle [...] additional sample may be indicated. Reference: Third [place] Definition of Myocardial Infarction. Journal of the [place] [employer] 2012;60:1581-98 Blood 11/16/2021 12:3 2 PM EST 11/16/2021 12:42 PM EST Narrative Resulting Agency Comment Spec In Lab Jose Collins APRN CHEMISTRY ORDERABLES Performing Organization Address [facility] Co de Phone Number [facility] [place] [address] * TSH [place] (11/16/2021 12:32 PM EST) Thyroid Stimulating Hormone 2.96 0.27 - 4.20 mcIU/mL [facility] Comment: Reference Interval (mcIU/mL): Females: ??First Trimester: 0.23-3.88 ??Second Trimester: 0.22-3.90 ??Third Trimester: 0.44-4.66 Blood 11/16/2021 12:3 2 PM EST 11/16/2021 12:42 PM EST Narrative Resulting Agency Comment Spec In Lab Jose FinnStepsssjaki CAMPBELL CHEMISTRY ORDERABLES Performing Organization Address [facility]/ZIP Co de Phone Number [facility] [place] [address] * Basic Metabolic Panel (non-fasting) (11/16/2021 12:32 PM EST) Glucose 97 65 - 199 mg/dL [facility] Comment:Diabetes: >=200 mg/d L plus symptoms Blood Urea Nitrogen 16 8 - 18 mg/dL [facility] Creatinine 0.91 0.70 - 1.20 mg/dL [facility] Sodium 138 135 - 145 mmol/L [facility] Potassium 4.3 3.5 - 5.0 mmol/L [facility] Comment: Please note: ??Patients with WBC >100,000 may have falsely elevated Potassium levels. ??For accurate Potassium quantification in these patients send serum separator tube (gold top) for subsequent determinations. ??Contact the Clinical Chemistry Laboratory if there are any questions. Chloride 103 98 - 107 mmol/L [facility] Carbon Dioxide 24 22 - 31 mmol/L [facility] Anion Gap 11 5 - 15 mmol/L [facility] Calcium 9.7 8.5 - 10.5 mg/dL [facility] Comment:result rechecked-CV/ MM Est Glomerular Filtration Rate 81 >=60 mL/min/1. 73 m?? [facility] Comment: This patient? s estimated glomerular filtration rate (eGFR) is between 81 mL/min/1.73 m2 (patients with less muscle mass) and 93 mL/min/1.73 m2 (patients with more muscle mass) [...] and symptoms in addition to eGFR. Blood 11/16/2021 12:3 2 PM EST 11/16/2021 12:42 PM EST Narrative Resulting Agency Comment Spec In Lab Jose Collins APRN CHEMISTRY ORDERABLES [facility] [place] [address] * EKG 12 Lead (11/16/2021 12:19 PM EST) Ventricular rate 74 BPM MUSE SYSTEM Atrial Rate 74 BPM MUSE SYSTEM P-R Interval 126 ms MUSE SYSTEM QRS Duration 86 ms MUSE SYSTEM Q-T Interval 388 ms MUSE SYSTEM QTC Calculated (Bezet) 430 ms MUSE SYSTEM Calculated P [place] 27 degrees MUSE SYSTEM Calculated R [place] 22 degrees MUSE SYSTEM Calculated T [place] 34 degrees MUSE SYSTEM INTERPRETATION Normal sinus rhythm Cannot rule out Anterior infarct , age undetermined Abnormal ECG When compared with ECG of 14-NOV-2021 13:23, T wave inversion no longer evident in Anterior leads Confirmed by MD Sherrill, Adan Lambert ([id number]) on 11/16/2021 1:19:58 PM MUSE SYSTEM 11/16/2021 12:1 9 PM EST 11/16/2021 1:19 PM EST Jose Collins APRN ECG ORDERABLES MUSE SYSTEM documented in this encounter Visit Diagnoses Diagnosis Pain at surgical site Arm heaviness Other musculoskeletal symptoms referable to limbs Right ear pain Otalgia, unspecified Cough ICD (implantable cardioverter-defibrillator) in place Acute otitis externa of right ear, unspecified type Rib pain on left side Chest pain, unspecified documented in this encounter Administered Medications Inactive Administered Medications - up to 3 most recent administrations Medication Order MAR Action Action Date Dose Rate Site ciprofloxacin-dexamet hasone (Ciprodex) 0.3-0.1 % otic suspension 4 drop 4 drop, Right Ear, 2 TIMES DAILY, First dose on Fri11/16/21 at 1241, Until Discontinued, STAT Given 11/16/2021 2:21 PM EST 4 drops Right Ear lidocaine (Lidoderm) 5% patch 1 patch 1 patch, Transdermal, EVERY 24 HOURS, First dose on Fri11/16/21 at 1241, Until Discontinued, Apply patch(es) for 12 hours, and then remove for 12 hours, STAT Patch Applied 11/16/2021 12:45 PM EST 1 patch 05- Back Upper (Left) lidocaine (Lidoderm) topical patch REMOVAL Transdermal, EVERY 24 HOURS, First dose on Fri11/17/21 at 0040, Until Discontinued, Remove lidocaine 5 %(700 mg/patch) patch sodium chloride 0.9% 500 mL IV bolus at 1,000 mL/hr, Intravenous, ONCE, 1 dose, On Fri11/16/21 at 1356 New Bag 11/16/2021 2:21 PM EST 1000 mL/hr documented in this encounter Active and Recently Administered Medications Times are shown in EST. Scheduled Medication Order 11/14/2021 11/15/2021 11/16/2021 ciprofloxacin-dexamethasone (Ciprodex) 0.3-0.1 % otic suspension 4 drop 4 drop, Right Ear, 2 TIMES DAILY, First dose on Fri11/16/21 at 1241, Until Discontinued, STAT 1421 (Given - Provid er: Darron Dewitt) lidocaine (Lidoderm) 5% patch 1 patch(Linked Group 1) 1 patch, Transdermal, EVERY 24 HOURS, First dose on Fri11/16/21 at 1241, Until Discontinued, Apply patch(es) for 12 hours, and then remove for 12 hours, STAT 1245 (Patch Applied - Provider: Darron Dewitt) lidocaine (Lidoderm) topical patch REMOVAL(Linked Group 1) Transdermal, EVERY 24 HOURS, First dose on Fri11/17/21 at 0040, Until Discontinued, Remove lidocaine 5 %(700 mg/patch) patch sodium chloride 0.9% 500 mL IV bolus (COMPLETED) at 1,000 mL/hr, Intravenous, ONCE, 1 dose, On Fri11/16/21 at 1356 1421 (New Bag - Prov ider: Darron Dewitt)1451 (Stopped - Provider: Darron Dewitt) Linked Groups Order Group 1: lidocaine (Lidoderm) 5% patch 1 patchJump to med 1 patch, Transdermal, EVERY 24 HOURS, First dose on Fri11/16/21 at 1241, Until Discontinued, Apply patch(es) for 12 hours, and then remove for 12 hours, STAT And lidocaine (Lidoderm) topical patch REMOVALJump to med Transdermal, EVERY 24 HOURS, First dose on Fri11/17/21 at 0040, Until Discontinued, Remove lidocaine 5 %(700 mg/patch) patch documented in this encounter Care Teams Director Of Early Childhood Relationship Specialty Start Date End Date Kenia Lawrence APRN [address] [place] [address] PCP - General Family Medicine 10/10/21 05/20/22 documented as of this encounter
--- OUTSIDE RECORDS SUMMARY | 2024-09-20 11:11 | XMS_ITS | Encounter Summary ---
Author Organization [facility] [place] [address] Care Team Providers Care Publishing Agent Name Role Phone MelindaKenia ford ADRIAN Primary Care Provider +1- [phone] Reason for Visit * Reason Onset Date Comments Other 11/14/2021 Cardiac Device M onitoring Education Encounter Details Date Type Department Care Team (Late st Contact Info) Description 11/14/2021 Notes Only Cardiology at [address] [address] Carolina Rojo Other (Cardiac Device Monitoring Education) Social History Tobacco Use Types Packs/Day Years [...] as of this encounter Progress Notes * Carolina Rojo LNA - 11/14/2021 3:15 PM EST Latitude home monitor provided to patient today. Monitor set up demonstrated. Patient instructed toconnect monitor and send manual transmission when they arrive home. Mom was with patient, went over monitoring with her as well as the patient folder I gave the patient yesterday documented in this encounter Plan of Treatment Upcoming Encounters Date Type Department Care Team (Late st Contact Info) Description 09/21/2024 8:15 AM EST Routine Obstetrics [place] [address] Emili Cabrera MD [facility] [place] [address] 09/26/2024 6:00 PM EST Appointment [facility] [place] [phone] 10/16/2024 [place] [address] Dudley Aguilar MD [facility] DR OBSTET[place]ICS [place] [address] 11/08/2024 10:00 AM EST Hospital Encounter Non[place] [phone] Arrived documented as of this encounter Visit Diagnoses Not on filedocumented in this encounter Care Teams Publishing Agent Relationship Specialty Start Date End Date Kenia Lawrence APRN [address] [place] [id number] PCP - General Family Medicine 10/10/21 05/20/22 documented as of this encounter
--- OUTSIDE RECORDS SUMMARY | 2024-09-20 11:11 | XMS_ITS | Encounter Summary ---
Author Organization [facility] Address [facility] [place] [address] Care Team Providers Care Fitness Director Name Role Phone Kenia Lawrence APRN Primary Care Provider +1- [phone] Encounter Details Date Type Department Care Team (Late st Contact Info) Description 11/15/2021 [place] [phone] Isai Yap MD [facility] [place] [address] ICD (implantable cardioverter-defibrill ator) in place Social History Tobacco Use Types Packs/Day Years [...] AM EST Routine Obstetrics [place] [phone] Emili Cabrera MD [facility] [place] [address] 09/26/2024 6:00 PM EST Appointment [facility] [place] [address] 10/16/2024 Hospital [place] [address] Dudley Aguilar MD [facility] OBSTETRICS [place] [address] 11/08/2024 10:00 AM EST Hospital Encounter Non-Invasive [place] [address] Arrived documented as of this encounter Visit Diagnoses Diagnosis ICD (implantable cardioverter-defibrillator) in place documented in this encounter Care Teams Fitness Director Relationship Specialty Start Date End Date Kenia Lawrence APRN [address] [place] [address] PCP - General Family Medicine 10/10/21 05/20/22 documented as of this encounter
--- OUTSIDE RECORDS SUMMARY | 2024-09-20 11:12 | XMS_ITS | Encounter Summary ---
Author Organization [facility] Address [facility] [place] [address] Care Team Providers Care Historic Sites Registrar Name Role Phone MelindaKenia ford APRN Primary Care Provider +1- [phone] Reason for Visit * Auth/Cert Specialty Diagnoses / Procedures Referred By Nellie t Referred To Contact Diagnoses Cardiac arrest Procedures PRO INPT INITIAL COMP/COMP/HIGH 70 MIN ER IPI Referral ID Status Reason Start Date Expiration Date Visits Re quested Visits Authorized [id number] 1 1 Encounter Details Date Type Department Care Team (Late st Contact Info) Description 11/12/2021 1:12 PM EST Anesthesia Event [place]rophys[place] [address] Oscar Solo MD [facility] [place] [address] Tata Canas CRNA Anesthesia Record Procedure Summary Procedure Name Responsible Anesthesiologist Anesthesia Start Time Anesthesia Stop Time ELECTROPHYSIOLOGY PROCEDURE (Left) Oscar Solo MD 11/12/21 1312 11/12/21 1536 Events Date Time Event Comment 11/12/2021 1312 AN Verify 1312 Start 1312 An Start Data 1317 An Induction 1319 An Intubation 1329 Anesthesia Ready 1354 1358 Skin Incision 1525 Extubation/LMA Out 1533 an stop data 1536 Recovery or ICU Handoff Alisia ent care was transferred to the destination unit staff after review of the patient's medical history, current anesthetic/surgical status and plan, according to the Provider Handoff Checklist. 1536 Stop Meds Name Total Midazolam 2 mg fentaNYL 100 mcg IV Lidocaine 60 mg Propofol 100 mg Rocuronium 50 mg PHENYLephrine 80 mcg Ondansetron 4 mg Dexamethasone 8 mg Neostigmine 3 mg Glycopyrrolate 0.6 mg Dexmedetomidine 20 mcg Propofol INF 552.33 mg ceFAZolin 2 g Lactated Ringers 500 mL * Agents Name O2 Air N2O Sevoflurane (et) * Blood No blood administrations on file. Lines, Drains, and Airways Type Details Placement Removal (RETIRED) Peripheral IV Line - Single Lumen 11/11/21; 1219; cephalic vein (lateral side of arm), right; [id number] catheter system; Ultrasound Guidance; 20 gauge, 1 in length, 3/4 in length; Gabe Brady RN VAS; distraction, intradermal injection, tolerated well; no longer indicated, LDA not present upon assessment, removed per policy/procedure, site care per policy/procedure, catheter/device intact; 11/14/21; 1528 11/11/21 1219 by Juany Brady RN 11/14/21 1528 by May Watts LNA ETT ETT Type: Cuffed, Or al; ETT Size: 7 mm; Mac Blade: 3; Notes: Asleep, Pre-O2; Attempts: 1; Laryngoscopy Grade: 1; ETT Placement Verified By: Auscultation; Secured at Teeth: 22 cm; Removal Date: 11/12/21; Removal Time: 1525 11/12/21 1319 by Denise Bell, JEWEL CUPPING MACHINE OPERATOR 11/12/21 1525 by Denise Bell, JEWEL CUPPING MACHINE OPERATOR Incision 11/12/21; 1359; Left , lower; chest; horizontal; 07/11/22; 234711/12/21 1359 by Susie Salmeron RN 07/11/22 2348 by Romana Ynig RN Incision 11/12/21; 1400; anterior; chest; horizontal; 07/11/22; 234711/12/21 1400 by Susie Salmeron RN 07/11/22 2348 by Romana Ying RN documented in this encounter Social History [...] OR Notes * Anesthesia Postprocedure Evaluation - Oscar Solo MD - 11/12/2021 4:01 PM EST Department of Anesthesiology Post-procedure Note Patient: Aniya Luque Procedure Summary Date: 11/12/21 Room / Location: [facility] ROOM 3 / [facility] EP LABS Anesthesia Start: 131 Anesthesia Stop: 153 Procedure: ELECTROPHYSIOLOGY PROCEDURE (Left ) Diagnosis: (VT/V arrest) Providers: Isai Yap MD Responsible Provider: Oscar Solo MD Anesthesia Type: general ASA Status: 3 All Anesthesia Providers: Anesthesiologist: Oscar Solo MD JEWEL CUPPING MACHINE OPERATOR: Denise Bell CRNA Vitals Value Taken Time BP 98/87 11/12/21 1600 Temp 36.5 ??C (97.7 ??F) 11/12/21 1538 Pulse 69 11/12/21 1601 Resp 21 11/12/21 1601 SpO2 96 % 11/12/21 1601 Pain Level 0 11/12/21 1538 Vitals shown include unvalidated device data. Patient Location: PACU/AKP Level of Consciousness: Conscious but Sleepy Pain Management: Satisfactory Analgesia PONV: None Cardiovascular Status: At Baseline and Hemodynamically Stable Respiratory Status: Supplemental O2 (NC or FM) Postoperative Fluid Status: Intravascular EUvolemia Possible Anesthetic Complications: NONE apparent at time of evaluation Final Primary Anesthesia Type: General (The anesthetic type performed was the same as planned.) Comments: Oscar Solo MD * Anesthesia Preprocedure Evaluation - Oscar Solo MD - 11/12/2021 10:53 AM EST Pre-Anesthesia Evaluation for: Aniya Luque a 36 y.o. female. Procedure(s): ELECTROPHYSIOLOGY PROCEDURE Patient Active Problem List Diagnosis Date Noted ??? Cigarette smoker 11/11/2021 ??? 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 *History of COVID-19 11/05/2021 ??? *Cardiac arrest 11/04/2021 ??? Gastroesophageal reflux disease 11/06/2020 ??? Borderline personality disorder 05/23/2020 ??? Post-traumatic stress disorder, chronic 05/23/2020 ??? Anxiety disorder, unspecified 05/22/2020 ??? Chest pain 01/17/2016 ??? Skin disease 03/24/2015 ??? Anxiety 08/03/2014 ??? Depression 08/03/2014 ??? Asthma 08/03/2014 ??? Hypertension 08/03/2014 ??? Tachycardia 08/03/2014 Past Medical History: Diagnosis Date ??? *History [...] ENDOSCOPY performed by Dudley Alva MD at [facility] ENDOSCOPY Social History Tobacco Use ??? [...] Physical Exam: Preprocedure Vitals Current as of 11/12/21 1053 BP: 140/70 Pulse: 67 Resp: 16 SpO2: 99 Temp: 36.8 ??C (98.2 ??F) Height: 162.6 cm (5' 4.02) (11/04/21) Weight: 72.2 kg (159 lb 2.8 oz) (11/12/21) BMI: 27.31 IBW: 54.7 kg (120 lb 10.7 oz) Last edited 11/12/21826 by FLAKO Airway Assessment: Mallampati: II TM distance: >3 FB Neck ROM: full Cardiovascular Assessment: Rhythm: regular Rate: normal Pulmonary Assessment: unlabored breathing Dental Assessment: Misc Assessment: IV access: Peripheral line Last Filed Perioperative Cognitive Screening None Anesthesia Plan: ASA 3 general, with a(n) intravenous induction 36 yo F for AICD placement. Unexplained cardiac arrest but long hx of chest complaints with V-fib arrest at home on 11/04/21 and has had multiple episodes since. Ventilated and cooled, Psych involved and consent for procedure from family and patient, Depression/borderline personality, Asthma, Htn, Allergy: PCN/Augmentin, Morphine, Ipratropium Plan: GA ETT std monitors Region - Other Informed Consent: Anesthetic plan and risks discussed with patient. Plan discussed with JEWEL CUPPING MACHINE OPERATOR. Anesthesia Screening documented in this encounter Plan of Treatment Upcoming Encounters Date Type Department Care Team (Late st Contact Info) Description 09/21/2024 8:15 AM EST Routine Obstetrics [place] [address] Emili Cabrera MD [facility] [place] [address] 09/26/2024 6:00 PM EST Appointment [facility] [place] [phone] 10/16/2024 [facility] [place] [address] Dudley Aguilar MD [facility] DR OBSTET[place]ICS [place] [address] 11/08/2024 10:00 AM EST Hospital Encounter Non-Invasive [place] [address] Arrived documented as of this encounter Visit Diagnoses Not on filedocumented in this encounter Administered Medications Inactive Administered Medications - up to 3 most recent administrations Medication Order MAR Action Action Date Dose Rate Site ceFAZolin (Ancef) 1 g in dextrose 5% 50 mL infusion Intravenous, PRN, Starting on Fri11/12/21 at 1334, Until Fri11/12/21 at 1536, Administer over 30 Minutes, Anesthesia Intra-op Given 11/12/2021 1:34 PM EST 2 g dexamethasone (Decadron) injection Intravenous, PRN, Starting on Fri11/12/21 at 1317, Until Fri11/12/21 at 1536, Anesthesia Intra-op, Routine Given 11/12/2021 1:17 PM EST 8 mg dexmedetomidine (Precedex) (4 mcg/mL) bolus injection (Anesthsia) Intravenous, PRN, Starting on Fri11/12/21 at 1317, Until Fri11/12/21 at 1536, Anesthesia Intra-op, Routine Given 11/12/2021 1:17 PM EST 20 mcg fentaNYL (pf) (50 mcg/mL) multi-dose injection Intravenous, PRN, Starting on Fri11/12/21 at 1404, Until Fri11/12/21 at 1536, Anesthesia Intra-op, Routine Given 11/12/2021 2:45 PM EST 50 mcg Given 11/12/2021 2:04 PM EST 50 mcg glycopyrrolate (Robinul) (0.2 mg/mL) multi-dose injection Intravenous, PRN, Starting on Fri11/12/21 at 1505, Until Fri11/12/21 at 1536, Anesthesia Intra-op, Routine Given 11/12/2021 3:05 PM EST 0.6 mg lactated ringers infusion Intravenous, CONTINUOUS PRN, Starting on Fri11/12/21 at 1312, Until Fri11/12/21 at 1536, Anesthesia Intra-op New Bag 11/12/2021 1:12 PM EST lidocaine (pf) (Xylocaine) (20 mg/mL) 2% injection syringe Intravenous, PRN, Starting on Fri11/12/21 at 1317, Until Fri11/12/21 at 1536, Anesthesia Intra-op, Routine Given 11/12/2021 1:17 PM EST 60 mg midazolam (pf) (Versed) (1 mg/mL) multi-dose injection Intravenous, PRN, Starting on Fri11/12/21 at 1312, Until Fri11/12/21 at 1536, Anesthesia Intra-op, Routine Given 11/12/2021 1:12 PM EST 2 mg neostigmine (Bloxiver) (1 mg/mL) injection Intravenous, PRN, Starting on Fri11/12/21 at 1505, Until Fri11/12/21 at 1536, Anesthesia Intra-op, Routine Given 11/12/2021 3:05 PM EST 3 mg ondansetron (pf) (Zofran) (2 mg/mL) injection Intravenous, PRN, Starting on Fri11/12/21 at 1508, Until Fri11/12/21 at 1536, Anesthesia Intra-op, Routine Given 11/12/2021 3:08 PM EST 4 mg PHENYLephrine in NS (PF) (ALCIRA-SYNEPHRINE) 0.8 mg/10 mL (80 mcg/mL) multi-dose injection Syrg Intravenous, PRN, Starting on Fri11/12/21 at 1330, Until Fri11/12/21 at 1536, Anesthesia Intra-op, Routine Given 11/12/2021 1:30 PM EST 80 mcg propofoL (Diprivan) (10 mg/mL) infusion Intravenous, CONTINUOUS PRN, Starting on Fri11/12/21 at 1317, Until Fri11/12/21 at 1536, Anesthesia Intra-op, Routine Rate/Dose Change 11/12/2021 2:13 PM EST 50 mcg/kg/min 21.66 mL/hr Rate/Dose Change 11/12/2021 1:29 PM EST 75 mcg/kg/min 32.4 9 mL/hr New Bag 11/12/2021 1:17 PM EST 100 mcg/kg/min 43.32 mL/ hr propofoL (Diprivan) 10 mg/mL bolus injection (Anesthesia) Intravenous, PRN, Starting on Fri11/12/21 at 1317, Until Fri11/12/21 at 1536, Anesthesia Intra-op Given 11/12/2021 1:17 PM EST 100 mg rocuronium (Zemuron) (10 mg/mL) multi-dose injection Intravenous, PRN, Starting on Fri11/12/21 at 1317, Until Fri11/12/21 at 1536, Anesthesia Intra-op, Routine Given 11/12/2021 1:17 PM EST 50 mg documented in this encounter Care Teams Historic Sites Registrar Relationship Specialty Start Date End Date Kenia Lawrence, ADRIAN [address] [place] [address] PCP - General Family Medicine 10/10/21 05/20/22 documented as of this encounter
--- OUTSIDE RECORDS SUMMARY | 2024-09-20 11:12 | XMS_ITS | Encounter Summary ---
Author Organization [facility] Address [facility] [place] [address] Care Team Providers Care Radiology Services Manager Name Role Phone Melinda Kenia Marilin CAMPBELL Primary Care Provider +1- [phone] Encounter Details Date Type Department Care Team (Late st Contact Info) Description 11/13/2021 Telephone Sleep Center at [facility] [address] [place] [address] Rhonda García Social History Tobacco Use Types Packs/Day Years [...] encounter Miscellaneous Notes * Telephone Encounter - Emili Walton APRN - 11/14/2021 9:42 AM EST I have only seen patient once in 2019 and she did not return for in lab PSG as recommended for a non diagnostic HST. She ended up having a sleep study at an outside facility and is getting treatment through them. She was wondering about the Kathie recall so instructions on how to register her unitfor the recall were provided. EMILI WALTON APRN documented in this encounter Plan of Treatment Upcoming Encounters Date Type Department Care Team (Late st Contact Info) Description 09/21/2024 8:15 AM EST Routine Obstetrics [place] [address] Emili Cabrera MD [facility] DR MATERNAL [place] [address] 09/26/2024 6:00 PM EST Appointment [facility] [place] [address] 10/16/2024 Hospital En[place] [address] Dudley Aguilar MD [facility] DR OBSTETRICS [place] [address] 11/08/2024 10:00 AM EST Hospital Encounter Non-Invasive [place] [address] Arrived documented as of this encounter Visit Diagnoses Not on filedocumented in this encounter Care Teams Radiology Services Manager Relationship Specialty Start Date End Date Kenia Lawrence APRN [address] [place] [address] PCP - General Family Medicine 10/10/21 05/20/22 documented as of this encounter
--- OUTSIDE RECORDS SUMMARY | 2024-09-20 11:12 | XMS_ITS | Encounter Summary ---
Author Organization [facility] Address [facility] [place] [address] Care Team Providers Care Larriman Helper Name Role Phone MelindaKenia ford ADRIAN Primary Care Provider [phone] Reason for Visit * Reason Comments Cardiac Arrest * Auth/Cert Specialty Diagnoses / Procedures Referred By Nellie mckeon Referred To Contact Diagnoses Cardiac arrest Procedures PRO INPT INITIAL COMP/COMP/HIGH 70 MIN ER IPI Referral ID Status Reason Start Date Expiration Date Visits Re quested Visits Authorized [id number] 1 1 Encounter Details Date Type Department Care Team (Latest Contact Info) Description 11/04/2021 7:20 AM EST - 11/14/2021 4:26 PM [facility] Hospital Encounter Intermediate [place]iac [place] [address] Horace Nielsen MD [facility] [place] [address] Yohannes Dhillon MD [facility] [address] Valorie Obrien MD [facility] [place] [address] Neeraj Pompa MD [facility] [place] [address] Cardiac arrest (Primary Dx); JENNIFER (acute kidney injury); Coronary artery vasospasm; Chest pain, unspecified type Discharge Disposition: Home with VNA Social History Tobacco Use Types Packs/Day Years [...] Sign Reading Time Taken Comments Blood Pressure 116/77 11/14/2021 3:16 PM EST Pulse 91 11/14/2021 3:16 PM EST Temperature 36.9 ??C (98.4 ??F) 11/14/2021 3:16 PM ES T Respiratory Rate 19 11/14/2021 3:16 PM EST Oxygen Saturation 99% 11/14/2021 3:16 PM EST Inhaled Oxygen Concentration - - Weight 72.7 kg (160 lb 4.8 oz) 11/14/2021 4:33 A M EST Height 162.6 cm (5' 4.02) 11/04/2021 8:00 AM ES T Body Mass Index 27.5 11/04/2021 8:00 AM EST documented in this encounter Discharge Summaries * Prashant Johnson - 11/14/2021 3:28 PM EST Discharge Summary Patient Name: Aniya Lundy Patient Age: 36 y.o. Language: [place] Race: White Ethnicity: Not nor Admit date: 11/04/2021 Discharge date and time: 11/14/2021 Attending Physician: Neeraj Pompa MD Discharge Physician: Shana Zurita MD Follow-up Recommendations for Providers: 1) Multiple VF arrests 2/2 coronary vasospasm - Vasospasm thought to be secondary to recent COVID and high amount of cigarette smoking prior to event. - New Medications: - Amlodipine 10mg QD - Atorvastatin 40mg QD - Sublingual Nitro PRN - Changed meds: Lisinopril increased to 20mg daily for HTN - SubQ-ICD placed on 11/12/21 - Smoking cessation; continue counseling as very high risk of cardiac arrest from vasospasm if she keeps smoking. - Follow up with Cardiology on 11/23/21 - CT angiography as outpatient to evaluate RCA (was not injected on cath) - May be having esophageal spasm as well; can consider outpatient GI workup/ manometry Inpatient Provider Contact Information: For questions regarding this document or issues relating to this hospitalization on the Medical Service, please contact your inpatient physician through the [facility] [employer]bi Field Agent . Issues afterhours and on weekends will be handled by the Hospitalist staff on-call. Discharge Diagnoses (Hospital Problems) and Secondary Diagnoses (Chronic Problems): Active Hospital Problems Diagnosis ??? Cardiac arrest ??? Subcutaneous defibrillator implanted 11/12/2019 ??? Cigarette smoker ??? Coronary artery vasospasm ??? *History of COVID-19 ??? Post-traumatic stress disorder, chronic ??? Borderline personality disorder ??? Anxiety disorder, unspecified ??? Depression ??? Asthma ??? Hypertension Resolved Hospital Problems No resolved problems to display. Active Non-Hospital Problems Diagnosis ??? Gastroesophageal reflux disease ??? Chest pain ??? Skin disease ??? Anxiety ??? Tachycardia Operations/Major Procedures: Operations: Procedure(s): ELECTROPHYSIOLOGY PROCEDURE 11/12/2021 Procedure(s): ELECTROPHYSIOLOGY PROCEDURE 11/12/2021 Other Major Procedures: - EP placed SubQ ICD on 11/12/21 History of Presentation: Aniya Lundy??is a 36 y.o.??female??with a history of??tobacco use, hypertension on ZANE-I at home, anxiety,??depression and recent COVID-19 infection (diagnosed 09/27/2021)??who suffered an out ofhospital VF arrest at home today witnessed by her boyfriend. ??According to her boyfriend Dk, she awoke from sleep this morning with severe heartburn and palpitations and asked for a wet washcloth.?When Dk??returned, she was found blue and unresponsive. ??Dk??performed about 10 minutes of bystander CPR before EMS arrived. ??EMS found her in ventricular fibrillation and pulseless. ??They p erformed 2 minutes of CPR, gave 1 shock and 2 rounds of epi. ??Per their??report, she withdrew but did not follow commands. ??On arrival to the emergency department, her VBG was found to be 7.09/66 with a lactate of 6.5. ??She was intubated in the emergency department. ??ABG post intubation showed 7 .2 3/44/199 with a lactate of 2.1. ??Labs were remarkable for WBC of 26, potassium of 5.1, creatinine 1.56, D-dimer 5000, troponin 0.02 and negative test. ??U tox is still pending. ??Post resuscitation ECG shows sinus tachycardia with QTC of 484 and no acute ischemic changes. ??No significant changes were found compared to her prior ECG.?There was no evidence of Brugada or accessory pathway. ??The patient underwent CT PE which was negative for PE. ??Her head CT was also negative for bleed. ?? I had a long conversation with her mother who confirmed most of her medical history. ??According tothe mother, Aniya was not the most physically active child growing up but she was able to keep upwith her peers. ??Aniya never had a cardiac diagnosis growing up. ??Aniya has 3 children but only lives with one of them intermittently. ??Her first child lives with Aniya's mother and a secondchild lives with her other sister. ??Aniya's mother states that Aniya has been struggling with her bipolar for a long time and has not been able to live with all 3 children due to her bipolar, anxiety and depression issues. ??To mother's knowledge, Aniya has not been engaged in any recreational drugs. ??Aniya recently told her mother that she has tried heroin once in the past. ??Aniya has a history of 1 miscarriage. ??There is no known cardiac history in the patient's first-degree relatives, however, Shannon (Aniya's mother)??has a female cousin who at age 18??due to an underlying cardiac issue that was known since . ??Shannon denies any history of sudden cardiac in the family. ?? Shannon also told me that Aniya has been complaining of intermittent heaviness in the chest, GERD symptoms, and fullness for the past 6 months. ??Aniya had a recent visit to [facility] ED in mid September with sharp chest pain. ??She ruled out for ACS at the time and was discharged home. ??Shannon also noted that Aniya has been mentioning passive suicidal ideation, but she never thought Aniya would act on it. ?? I tried calling Dk this morning but was unable to reach him.?? Hospital Course: #VF arrest # NSTEMI Type II 2/2 coronary vasospasm (resolved) #Diffuse coronary and large vessel vasospasm #Acute blood loss anemia likely 2/2 to left heart cath and intraortic balloon pump placement along with a possible dilutional component Patient was admitted post out of hospital Vfib arrest. Targeted temperature management was pursued.Troponin-T was trended, stormy from 0.02 on presentation to 0.24. Around 3pm on day of admission patient again had witnessed cardiac arrest. Went into junctional rhythm with ST elevations on telemetry.Rhythm progressed to pulseless Vtach and then Vfib. She was shocked x 3, given 300 mg amio bolus and started on an amio gtt. She was loaded with rectal aspirin and started on a heparin gtt per ACS protocol. She was taken for emergent cardiac catheterization; were she was witness to have diffuse femoral and coronary vasospam; with coronary vasospasm was progressive diffuse spasm of LM, LAD and LCX; that was associated with Progressive QRS widening and ST deviation that quickly developed into VT => rapidly deteriorated into VF which responded to a single shock. A brief electrical storm followed with repeat episodes requiring ~8 countershocks, each effective in restoring NSR but only temporarily with a persistently wide QRS. Lidocaine infusion was added to amiodarone already on board; an IABP was placed via the RFA and after this she had no further episodes of VT. Transferred to [facility]; nicardipine ggt added for vasospasm; She remained stable hemodynamically without pressors but IABP kept at 1:1. She was on pressure support with intubation and underwent post-arrest cooling protocol. On 11/06 she became hypotensive and was briefly on pressors overnight, she had increased secretions and O2 requirements on the vent; so she was started on abx for aspiration pna. She then quickly improved, intra-aortic balloon pump was removed on 11/06. Pt passed SBT on 11/07 and was extubated on 11/07 to 5L NC. She was weaned off of nicardipine ggt for vasospasm and transitioned to amlodipine 10mg daily. She was also put on atorvastatin given some evidence to reduce vasospasm. She did not have any further episodes of Vfib during her hospital stay. EP followed patient and underwent subcutaneous ICD placement on 11/12/21 without issues. For management of cardiovascular conditions she was discharged on amlodipine 10mg QD, lisinopril 20mg, atorvastatin 40mg, nitro prn. Notable her hemoglobin appeared to decrease significantly following left heart catheritization and intraortic balloon pump placement with initial hemoglobin of 12.9 that decreased to a low of 8.0 over the course of a couple of days which improved to 10.7 on discharge. #Fever #Aspiration PNA vs pneumonitis She continues to be febrile with increasing leukocytosis, most likely secondary to aspiration pna vs pneumonitis vs VAP given increase secretions and fio2 requirements overnight on 11/06. Will treatedwith cefepime, vanc and metronidazole given allergy to penicillin; and responded well and was able to be extubated with minimal O2 requirements and remained afebrile. She completed an empiric 7 day course of cefepime. Vital Signs at Discharge: BP: 107/53, Heart Rate: 69, Temp: 37 ??C (98.6 ??F), Resp: 17, Height: 162.6 cm (5' 4.02) (11/04/21 0800) Weight: 72.7 kg (160 lb 4.8 oz) (11/14/21 0433) Gen: No acute distress, resting comfortably in bed. HEENT: PERRLA, EOMI, no icterus, MMM CV: Regular rate and rhythm, no murmurs/rubs/gallops Pulm: Normal respiratory effort, CTA with good air entery bilaterally, no crackles. Abd: Soft, non-tender, non-distended. No guarding or rebound. Ext: No pedal edema. No gross abnormalities. Neuro: Cranially nerves intact. Moving all four extremities. AAOx3 Functional and Cognitive Status: Independent Pending Studies and Lab Data: none Left Heart Cath: - Findings: 1. Severe spasm of RFA on initial angiography to assess access. Near complete occlusion from apparent spasm around 6 Fr sheath. 2. Mild luminal irregularities of left coronary with initial angiogram, with progressive diffuse spasm of LM, LAD and LCX on one additional non-selective injection and one final selective injection. Progressive QRS widening and ST deviation seen during these small volume/low pressure injections andshortly afterwards she developed VT => rapidly deteriorated into VF which responded to a single shock. A brief electrical storm followed with repeat episodes requiring ~8 countershocks, each effective in restoring NSR but only temporarily with a persistently wide QRS. Lidocaine infusion was added to amiodarone already on board; an IABP was placed via the RFA and after this she had no further episodes of VT. We elected not to perform angiography of the RCA. Discharge Conditions/Prognosis: Fair Discharge to: Home with VNA services. Updated Allergies/ADRs: Allergies Allergen Reactions ??? Augmentin [Amoxicillin-Pot Clavulanate] Rash Unsure if allergic ??? Ipratropium Other (See Comments) ??? Morphine Other (See Comments) Cannot recall ??? Penicillins Rash ??? Seroquel [Quetiapine] Other (See Comments) Made head feel loopy. Immunizations Given this Hospitalization: There is no immunization history on file for this patient. Discharge Medications: Your Medications New Medications Dose Details amLODIPine 10 mg Tab Commonly known as: Norvasc Take 1 tablet by mouth daily. Start taking on: November 15, 2021 10 mg Quantity: 90 tablet Refills: 0 atorvastatin 40 mg Tab Commonly known as: Lipitor Take 1 tablet by mouth every evening. 40 mg Quantity: 90 tablet Refills: 0 nitroGLYcerin 0.4 mg Subl Commonly known as: Nitrostat Place 1 tablet under the tongue every 5 minutes as needed for Chest pain. 0.4 mg Quantity: 30 tablet Refills: 0 Continued medications with new dosing Dose Details clonazePAM 0.5 mg Tab Commonly known as: KlonoPIN Take 2 tablets by mouth 2 times daily. What changed: ?? how much to take ?? how to take this ?? when to take this 1 mg Quantity: 60 tablet Refills: 0 lisinopriL 20 mg Tab Commonly known as: Zestril Take 1 tablet by mouth daily. Start taking on: November 15, 2021 What changed: ?? medication strength ?? how much to take 20 mg Quantity: 90 tablet Refills: 0 Continued medications, unchanged Dose Details albuteroL 90 mcg/actuation Hfaa Inhale 2 puffs into the lungs every 4 hours as needed for Wheezing. Use with spacer 2 puff Refills: 0 calcium carbonate 200 mg calcium (500 mg) Chew Commonly known as: Tums Take 1 tablet by mouth as needed. 1 tablet Refills: 0 cetirizine 10 mg Tab Commonly known as: ZyrTEC TAKE ONE TABLET BY MOUTH EVERY DAY Refills: 0 famotidine 40 mg Tab Commonly known as: Pepcid TAKE 1 TABLET BY MOUTH ONCE DAILY Refills: 0 Flonase Sensimist 27.5 mcg/actuation Spsn every 24 hours. Generic drug: fluticasone Refills: 0 Flovent HFA 110 mcg/actuation Hfaa Every 12 hours. Generic drug: fluticasone propionate Refills: 0 GAVISCON ORAL Take by mouth. Refills: 0 hydrOXYzine 25 mg Tab Commonly known as: Atarax Take 1 tablet by mouth 3 times daily as needed for Anxiety. 25 mg Quantity: 30 tablet Refills: 12 ipratropium-albuteroL 0.5 mg-3 mg(2.5 mg base)/3 mL Nebu Commonly known as: Duoneb Every 6 hours. Refills: 0 zoklvksfg-vscuszqwi-dh-mag-sim [id number] mg/30 mL Susp Take by mouth. Refills: 0 pantoprazole EC 40 mg Tbec Commonly known as: Protonix Take 40 mg by mouth daily. 40 mg Refills: 0 prazosin 1 mg Cap Commonly known as: Minipress Take 1 mg by mouth 3 times daily. 1 mg Refills: 0 sucralfate 1 gram Tab Commonly known as: Carafate TAKE 1 TABLET BY MOUTH TWICE DAILY ON AN EMPTY STOMACH Refills: 0 vitamin C 500 mg Tab TAKE ONE TABLET BY MOUTH EVERY DAY Generic drug: ascorbic acid (Vitamin C) Refills: 0 STOPPED Medications diazePAM 5 mg Tab Commonly known as: Valium esomeprazole 20 mg Cpdr Commonly known as: NexIUM FLUoxetine 20 mg/5 mL (4 mg/mL) Soln Commonly known as: PROzac Zofran 4 mg Tab Generic drug: ondansetron Smoking Status at Discharge: Social History Tobacco Use Smoking Status Current Every Day Smoker ??? Packs/day: 1.00 ??? Years: 15.00 ??? Pack years: 15.00 ??? Types: Cigarettes Smokeless Tobacco Never Used Tobacco Comment Smokess 0.5 - 1 packs of cigarettes daily x 13 - 14 years. Instructions Given to Patient at Discharge: Patient Instructions Instructions on Discharge to Home Why you were hospitalized - you were in the hospital because you had a cardiac arrest at home whereyour heart went into a deadly rhythm that required CPR and shocks to bring you back. You had multiple other episodes of cardiac arrest due to this deadly heart rhythm (called ventricular fibrillationaka vfib) in the hospital shortly after arriving in the cardiac ICU and when you were in the cardiac label remover. When we looked at your blood vessels in the label remover we saw you were having vasospasm ofyour coronary arteries on your heart; and this spasm was basically stopping the blood flow like in a heart attack by clamping your heart vessels closed and causing you to have these deadly rhythms. We started you on medications to prevent spasm and you did not have any more of these episodes duringyour hospital stay. We started you on medication to help prevent these arrhythmias from vasospasm in the future (amlodipine and atorvastatin) and placed an defibrillator (ICD) which will be able to detect if your heart does go into the dangerous rhythm and be able to shock you out of it. It is VERY IMPORTANT to stop smoking cigarettes and using tobacco products!! This is because nicotine can cause your vessels to spasm; which will put you at very high risk for this deadly heart rhythm and cardiac arrest. Call your doctor or seek medical attention if you develop the following - chest pain, shortness of breath, pass out, fever, weakness in an arm or leg, or any other symptoms which concern you Activity level - use walker as you regain your strength. Diet - no change in previous diet Driving - as before hospitalization Shower/Bath - permitted; instructions for ICD care below. Changes in Your Medications: Please see the remainder of this summary. Follow-up: Future Appointments Date Time Provider Department Center 11/28/2021 4:00 PM Shannon Verdin RN [facility] CARD 4A [facility] 02/13/2022 10:30 AM Shannon Verdin RN [facility] 4A [facility] Your Inpatient Medical Team: MD Shana Turner MD, MD, MD Your Primary Care Provider: Kenia Lawrence, MAILROOM ASSISTANT [phone] For questions regarding this document or issues relating to this hospitalization on the Medical Service, please contact your inpatient physician through the [facility] [employer] Field Agent . Issues afterhours and on weekends will be handled by the Hospitalist staff on-call. General Instructions - BEGIN EP DISCHAGRE INSTRUCTIONS - FINAL S-ICD RECOMMENDATIONS: 1. Standard post implant discharge instructions (see below): 2. Medications as listed above. 3. You may use ice packs over the incision. Make sure to use a cloth burler (such as a towel) in between the ice pack and the bare skin and that it stays DRY. 4. Follow up in device clinic for a wound check and device check. DEVICE CLINIC 1. You will be scheduled for a wound check in the Device Clinic for: ?? Incision check ?? Device interrogation ?? Review of remote follow up and set up of home monitor 2. Your device will be checked every 3 months (either in clinic or by remote). 3. Prior to discharge, you will be given a home monitor so that your device can send clinical data to the device clinic nurses. If you are unable to set this up at home prior to your wound check, we will review this at the time of your appointment NOTE: The device data we review from your home monitor is comparable to an in- office appointment. Therefore, your insurance company will be billed for review of your data. Depending on your coverage,you may be responsible for a portion of his charge. We recommend that you contact your insurance carrier for more details about your particular coverage. WOUND CARE FOR YOUR INCISION: Your wound will usually heal in 7-10 days. Your wound may be tender, it may appear slightly red andbumpy and there may be dry, crusty scabbing. These are all normal. How to Care for your Incision: - Either you or someone with you needs to look at the wound every day. - Report any signs of infection immediately: ?? Drainage ?? Swelling ?? Warmth ?? Increased pain ?? Fevers/chills - Call if you are concerned about infection or the edges of the wound separate - A needle should not be put into the wound area because this can damage the device. ?? You may need to remind your healthcare provider of this concern - There are sutures inside the incision that will dissolve on their own - Do not scratch or rub the wound - Do not apply creams, lotions, or ointments to the incision until is completely healed. - You may cover the wound with gauze if it rubs on clothing and causes discomfort - Protect your wound from injury until the skin has had sufficient time to heal - Do not shower for 48 hours after implant - While in the shower, turn your back to the water nozzle so you avoid direct water pressure on thewound. Continue this for 7-10 days. - After 48 hours, you may wash the wound gently with soap and water (unless there is DermaBond on the incision - see below) - Do not submerge the incision (bathtubs, hot tubs, or swimming) for at least two weeks Patient Instructions - for Clozex?? Skin Closures Clozex?? Skin Closures are made of polymeric (plastic) components coated with a pressure sensitive skin adhesive. The device is made to stay in place from 7 to 10 days and then, naturally slough (fall) off your skin. At all times try to keep your wound area protected and dry. Day 1. Some tenderness and swelling is common in all wounds, but if you have any personal concerns, contact [facility] Electrophysiology at [phone]. Do not attempt to readjust the Clozex?? device once applied, however you may gently re-attach a corner that has accidentally been lifted. Day 2 and beyond. You may take brief showers with your Clozex?? device, but try to avoid letting the direct force from the stream of water contact the device. Avoid soaking in a bath, swimming, or use of a hot tub while the device is in place. If your wound is wet, gently pat the area dry with a towel. Do not scrub or soak your wound. Avoid activities producing heavy perspiration. Never place adhesive tape directly onto the Clozex?? device because removal of the tape may inadvertently remove your device. If discomfort increases, or if your wound area is reddened, or is excessively warm to the touch, this may be a sign of infection and you should consult your physician immediately. Some discoloration around the outer perimeter of the Clozex?? device from exposure to the environment is normal and varies depending on cover dressings used. Device Removal: The Clozex?? device should be worn for 7-10 days, please remove on November 21, 2021. When removing the device from the skin, gently pull along (parallel to) the length of the incision or laceration. Never peel the device off across (perpendicular to) the length of the incision or laceration as this could result in wound edge separation. Wear and hold time vary depending on patient care, skin location, and skin type. After device removal, check the wound and consult your physicianif there are any questions. Your incision has been closed with: Dermabond - This is a sterile, liquid skin adhesive that holds wound edges together. The film will usually remain in place for a few weeks, then naturally sloughs (falls) off your skin. - Do not scratch, rub, or pick at the Dermabond adhesive film. This may loosen the film before yourwound is healed. - Protect the wound from prolonged exposure to sunlight or tanning lamps while the film is in place - You may occasionally and briefly wet your wound in the shower or bath. Do not soak or scrub your wound, do not swim, and avoid periods of heavy perspiration until the Dermabond adhesive has naturally fallen off. After showering or bathing, gently blot your wound dry with a soft towel CALL IMMEDIATELY: If you develop chest pain, shortness of breath, bleeding, discharge from the incision, opening of the incision and/or fever/temperature >100 degrees F. The office scheduling phone number is [phone]. ARM MOVEMENT RESTRICTIONS POST-IMPLANT - Do not lift greater than 7 [...] for 6 weeks - No driving for 1 week If you have any questions or concerns about this product, please call the office at [phone]. - END EP DISCHARGE INSTRUCTIONS - Future Appointments and Orders Future Appointments and Orders Future Appointments Provider Department Dept Phone 11/28/2021 4:00 PM Shannon Verdin RN Cardiology at [facility] Arrive at: [facility] Area [phone] 02/13/2022 10:30 AM Shannon Verdin RN Cardiology at [facility] Arrive at: [facility] Area [phone] Future Orders Complete By Expires CT Angiogram Coronary Arteries [[id number] Custom] 11/21/2021 02/12/2022 Process Instructions: Scheduling Instructions: Questions: Clinical information / steiner questions for radiologist: Out of hospital Vfib arrest from vasospasms. CT coronary for evaluation of cornary disease. Do you want to report a missing reason for exam?: Where will study be performed?: [facility] Radiology Is the patient ?: No Stat read required?: Does patient require sedation?: GA rationale: Date of injury if applicable: Referral to Home Health - at DISCHARGE [AKB6483 CPT(R)] As directed Process Instructions: Scheduling Instructions: Comments: DOCUMENTATION FOR VNA SERVICES (INCLUDING THOSE PATIENTS WITH MEDICARE COVERAGE REQUIRING HOME VNA SERVICES AND/OR HOSPICE SERVICES) PATIENT'S LOCATION: Aniya Lundy [address] [place] [address] Web Press Operator Apprentice's Name: Self and Mother Shannon Zamora [phone] In discussion with the attending physician, it is certified that this patient is under their care and that they, or a Nurse Practitioner, or Physician V Belt Finisher who is working directly with them, hada face to face encounter that meets the physician face to face encounter requirements with this patient on 11/14/21. (MD please enter DC date here) The encounter with the patient was in whole, or in part, for the following medical condition, whichis the primary reason for home health care services: weakness In discussion with the provider, it is certified that, based on their findings, the following services are medically necessary for home health services. To provide the following care/treatments with the clinical findings supporting the need for services as follows: HOME HEALTH AGENCY: [facility] PHONE: [phone] FAX: [phone] RN orders: Cardiopulmonary assessment, incisional assessment, assess vital signs, assessment of rehab progress, medication management and effectiveness, home safety evaluation. PT ORDERS: Continue rehab for endurance, gait stability and strength with mobility and transfers. Home safety evaluation. Home exercise program if appropriate. Start of Care Date: 24-48 hrs post discharge SPECIAL INSTRUCTIONS: For any follow up questions, needs, or issues please call the Cardiac SurgeryOffice at [phone] FOR MEDICARE ONLY: In discussion with the attending physician, it is certified that the clinical findings support thatthis patient is homebound i.e. absences from home require considerable and taxing effort due to: Restricted mobility and poor activity tolerance due to recent cardiac surgery. Patient requires assistance of one patient to leave the home. Home Health agencies which cover the area of patient's residence have been reviewed, either verbally or in writing, and patient/family have chosen the agency as noted. Questions: Agency name and contact information: [facility] Patient location post discharge: home What services are requested: Registered Nurse Physical Therapy Start date: Responsible MD post discharge contact info: PCP and DR Aletha Krueger rolling [EQ134 Custom] As directed Process Instructions: Scheduling Instructions: Questions: Vendor Name/Contact information: Discharge References/Attachments None documented in this encounter Discharge Instructions * Discharge Instructions* Sparkle Barkley PA - 11/12/2021 3:55 PM EST - BEGIN EP DISCHAGRE INSTRUCTIONS - FINAL S-ICD RECOMMENDATIONS: 1. Standard post implant discharge instructions (see below): 2. Medications as listed above. 3. You may use ice packs over the incision. Make sure to use a cloth burler (such as a towel) in between the ice pack and the bare skin and that it stays DRY. 4. Follow up in device clinic for a wound check and device check. DEVICE CLINIC 1. You will be scheduled for a wound check in the Device Clinic for: ?? Incision check ?? Device interrogation ?? Review of remote follow up and set up of home monitor 2. Your device will be checked every 3 months (either in clinic or by remote). 3. Prior to discharge, you will be given a home monitor so that your device can send clinical data to the device clinic nurses. If you are unable to set this up at home prior to your wound check, we will review this at the time of your appointment NOTE: The device data we review from your home monitor is comparable to an in- office appointment. Therefore, your insurance company will be billed for review of your data. Depending on your coverage,you may be responsible for a portion of his charge. We recommend that you contact your insurance carrier for more details about your particular coverage. WOUND CARE FOR YOUR INCISION: Your wound will usually heal in 7-10 days. Your wound may be tender, it may appear slightly red andbumpy and there may be dry, crusty scabbing. These are all normal. How to Care for your Incision: - Either you or someone with you needs to look at the wound every day. - Report any signs of infection immediately: ?? Drainage ?? Swelling ?? Warmth ?? Increased pain ?? Fevers/chills - Call if you are concerned about infection or the edges of the wound separate - A needle should not be put into the wound area because this can damage the device. ?? You may need to remind your healthcare provider of this concern - There are sutures inside the incision that will dissolve on their own - Do not scratch or rub the wound - Do not apply creams, lotions, or ointments to the incision until is completely healed. - You may cover the wound with gauze if it rubs on clothing and causes discomfort - Protect your wound from injury until the skin has had sufficient time to heal - Do not shower for 48 hours after implant - While in the shower, turn your back to the water nozzle so you avoid direct water pressure on thewound. Continue this for 7-10 days. - After 48 hours, you may wash the wound gently with soap and water (unless there is DermaBond on the incision - see below) - Do not submerge the incision (bathtubs, hot tubs, or swimming) for at least two weeks Patient Instructions - for Clozex?? Skin Closures Clozex?? Skin Closures are made of polymeric (plastic) components coated with a pressure sensitive skin adhesive. The device is made to stay in place from 7 to 10 days and then, naturally slough (fall) off your skin. At all times try to keep your wound area protected and dry. Day 1. Some tenderness and swelling is common in all wounds, but if you have any personal concerns, contact [facility] Electrophysiology at [phone]. Do not attempt to readjust the Clozex?? device once applied, however you may gently re-attach a corner that has accidentally been lifted. Day 2 and beyond. You may take brief showers with your Clozex?? device, but try to avoid letting the direct force from the stream of water contact the device. Avoid soaking in a bath, swimming, or use of a hot tub while the device is in place. If your wound is wet, gently pat the area dry with a towel. Do not scrub or soak your wound. Avoid activities producing heavy perspiration. Never place adhesive tape directly onto the Clozex?? device because removal of the tape may inadvertently remove your device. If discomfort increases, or if your wound area is reddened, or is excessively warm to the touch, this may be a sign of infection and you should consult your physician immediately. Some discoloration around the outer perimeter of the Clozex?? device from exposure to the environment is normal and varies depending on cover dressings used. Device Removal: The Clozex?? device should be worn for 7-10 days, please remove on November 21, 2021. When removing the device from the skin, gently pull along (parallel to) the length of the incision or laceration. Never peel the device off across (perpendicular to) the length of the incision or laceration as this could result in wound edge separation. Wear and hold time vary depending on patient care, skin location, and skin type. After device removal, check the wound and consult your physicianif there are any questions. Your incision has been closed with: Dermabond - This is a sterile, liquid skin adhesive that holds wound edges together. The film will usually remain in place for a few weeks, then naturally sloughs (falls) off your skin. - Do not scratch, rub, or pick at the Dermabond adhesive film. This may loosen the film before yourwound is healed. - Protect the wound from prolonged exposure to sunlight or tanning lamps while the film is in place - You may occasionally and briefly wet your wound in the shower or bath. Do not soak or scrub your wound, do not swim, and avoid periods of heavy perspiration until the Dermabond adhesive has naturally fallen off. After showering or bathing, gently blot your wound dry with a soft towel CALL IMMEDIATELY: If you develop chest pain, shortness of breath, bleeding, discharge from the incision, opening of the incision and/or fever/temperature >100 degrees F. The office scheduling phone number is [phone]. ARM MOVEMENT RESTRICTIONS POST-IMPLANT - Do not lift greater than 7 [...] for 6 weeks - No driving for 1 week If you have any questions or concerns about this product, please call the office at [phone]. - END EP DISCHARGE INSTRUCTIONS - * Patient Instructions* Prashant Johnson - 11/14/2021 1:52 PM EST Instructions on Discharge to Home Why you were hospitalized - you were in the hospital because you had a cardiac arrest at home whereyour heart went into a deadly rhythm that required CPR and shocks to bring you back. You had multiple other episodes of cardiac arrest due to this deadly heart rhythm (called ventricular fibrillationaka vfib) in the hospital shortly after arriving in the cardiac ICU and when you were in the cardiac label remover. When we looked at your blood vessels in the label remover we saw you were having vasospasm ofyour coronary arteries on your heart; and this spasm was basically stopping the blood flow like in a heart attack by clamping your heart vessels closed and causing you to have these deadly rhythms. We started you on medications to prevent spasm and you did not have any more of these episodes duringyour hospital stay. We started you on medication to help prevent these arrhythmias from vasospasm in the future (amlodipine and atorvastatin) and placed an defibrillator (ICD) which will be able to detect if your heart does go into the dangerous rhythm and be able to shock you out of it. It is VERY IMPORTANT to stop smoking cigarettes and using tobacco products!! This is because nicotine can cause your vessels to spasm; which will put you at very high risk for this deadly heart rhythm and cardiac arrest. Call your doctor or seek medical attention if you develop the following - chest pain, shortness of breath, pass out, fever, weakness in an arm or leg, or any other symptoms which concern you Activity level - use walker as you regain your strength. Diet - no change in previous diet Driving - as before hospitalization Shower/Bath - permitted; instructions for ICD care below. Changes in Your Medications: Please see the remainder of this summary New medications: Amlodipine Please take one 10 mg tablet by mouth daily. This is a blood pressure medication that isalso used for the purpose of vasospasms. Atorvastatin: Please take one 40 mg tablet by mouth daily. This is a medication for cholesterol lowering but will be used to help your vasospasms. Nitroglycerin: Please take one 0.4 sublingual tablet under the tongue every 5 minutes for a total of 3 doses for severe chest pain. Medications that were changed: Lisinopril: Please increase to one 20 mg tablet daily. This is a medication used for blood pressure Follow-up: Future Appointments Date Time Provider Department Center 11/23/2021 2:00 PM Valorie Obrien MD [address] 11/28/2021 4:00 PM Shannon Verdin RN [address] 02/13/2022 10:30 AM Shannon Verdin RN [address] Your Inpatient Medical Team: MD Shana Turner MD, MD, MD Your Primary Care Provider: Kenia Lawrence, MAILROOM ASSISTANT [phone] For questions regarding this document or issues relating to this hospitalization on the Medical Service, please contact your inpatient physician through the [facility] Fbi Field Agent . Issues afterhours and on weekends will be handled by the Hospitalist staff on-call. documented in this encounter Medications at Time of Discharge Medication Sig Dispensed Refills Start Date End Date cetirizine (ZyrTEC) 10 mg Tablet TAKE ONE [...] Take 1 tablet by mouth as needed. lisinopriL (Zestril) 20 mg Tablet Take 1 [...] TABLET BY MOUTH EVERY DAY 08/24/2021 08/12/2023 fluticasone (Flonase Sensimist) 27.5 mcg/actuation [place], Suspension every 24 hours. 09/06/2021 11/16/2021 mag/aluminum/sod bicarb/alginc (GAVISCON ORAL) Take by mouth. 07/25/2022 pantoprazole EC (Protonix) 40 mg Tablet, Delayed Release (E.C.) Take 40 mg by mouth daily. 02/13/2022 famotidine (Pepcid) 40 mg Tablet TAKE 1 TABLET BY MOUTH ONCE DAILY 10/19/2020 11/16/2021 sucralfate (Carafate) 1 gram Tablet TAKE 1 TABLET BY MOUTH TWICE DAILY ON AN EMPTY STOMACH 10/11/2020 08/12/2023 diphenhydrAMINE/aluminum -magnesium hydroxide with simethicone/lidocaine (BMX) (6.67 mg-0.83 mg-13.33 mg-1.33 mg/mL) oral liquid Take by mouth. 05/14/2022 hydrOXYzine (Atarax) 25 mg Tablet Take 1 tablet by mouth 3 times daily as needed for Anxiety. 30 tablet 12 05/25/2020 12/13/2021 prazosin (MINIPRESS) 1 mg Capsule Take 1 mg by mouth 3 times daily. 02/13/2022 documented as of this encounter Progress Notes * Erendira Giron RN - 11/14/2021 4:26 PM EST IV and telemetry discontinued as ordered. orthopedic technician by to speak w/ patient, mother bedside, regardingdevice. Reviewed medications, post device restrictions, and follow up appointments, mother bedside.Questions answered. VNA referral faxed, spoke with Heriberto confirming receipt. Discharged off floor via WC to home. * Dianna Tomlinson SLP - 11/14/2021 2:51 PM EST Speech-Language Pathology Consult Note Pt upgraded to regular diet yesterday. Tolerating well as per RN and getting ready for DC. No further acute STRIP CUTTING MACHINE OPERATOR needs identified. STRIP CUTTING MACHINE OPERATOR will sign off at this time. Dianna Tomlinson MA [facility]-STRIP CUTTING MACHINE OPERATOR Inpatient Rehabilitation Medicine pager:# [phone] * Shira Salcido, PT - 11/14/2021 10:00 AM EST Physical Therapy Note Treatment Number PT: 3 Patient profile: Aniya Lundy is a 36 y.o. right-handed female admitted on 11/04/[address] Valorie Obrien MD with a history of??tobacco use, hypertension on ZANE-I at home, anxiety,??depression, bipolar disorder, suicidal ideation and recent COVID-19 infection (diagnosed 09/27/2021)??who suffered an out of hospital VF arrest 11/04; with multiple subsequent VF arrests in [facility] and in cath labs on 11/04 found to have diffuse coronary and large vessel vasospasm. She was intubated on admission, was followed by neurology for EEG monitoring with concern for seizures, and was extubated on 11/07. Neurology recommends obtaining MRI brain and MRA head to look for evidence of vasospasm and evidence of infarct that might suggest prior vasospasm. Psychiatry has been consulted due to patient's verbalization of not wanting to live like this to RN and with prior SI history and psych admits. Interval History: complaint of jaw pain, cxr negative for post-implant complications, regular diet Social History: lives in [place], [place] and her boyfriend, Dk, occasionally stays with her; works at [employer] in [place], [place]; per chart, she has 3 children, all of whom live with family members outside of her home Home set-up: 2-level apartment Bathroom Set-up: TBD Stairs: flight to bathroom and bedroom on 2nd floor Baseline Mobility: independent Equipment at home: none Fall history: patient denies ?? Precautions/Special Considerations: all risk; cardiac; pacer (ICD) precautions left Lines: bilateral cubital PIV's; yang Activity Orders: as tolerated Mobility and Positioning Recommendations: ?? Pt. Requires assist of 1 and fww for transfers and gait. ?? Please encourage up to chair for meal times as able. Subjective: I recognize your face my arms really hurt Objective: Patient seen for physical therapy and demonstrated the following: Pt was in upright, supine position with sling on L arm upon arrival to room. Pt reported that she felt that her ankles looked really big. Pt lower legs and ankles did not look to have visible edema. MMT of R dorsiflexion was a 3+/5 while her L dorsiflexion was a 3-/5. Pt returned to bed in upright position in supine withbell alarm in hand and sling back on her left arm. Spoke with nursing about her progress. Pain: Pt stated that she had achy pain in both of her arms. She stated the pain went down from her shoulder to her hands. She reported no numbness or tingling Cardiopulmonary: On room air. SpO2: 99 % HR: 70's bpm BP: 126/81 mmHg in sitting Cognition: alert and oriented, able to follow commands and tactile cueing; while ambulating she waseasily distracted her surrounding environment Bed Mobility: Supine to sit: independent under supervision With FWW Sit to Supine: independent under supervision Scooting: independent under supervision Rolling to R/L: independent Transfers: Sit to Stand: x 5 in 30 seconds with fww after donning pants and standing BP. Stand to Sit: independent under supervision Balance: Sitting: good Standing: fair with fww. Gait: Distance: 150' Assistance Needed: close cg and assist /cues to slow pace and stand closer to fww for balance and safety; pt pushed very forcefully through FWW with both UEs while ambulating Pattern: forward posture with at times , poor LE motor control Stairs: pt able to walk up and down 2 stairs x 2 with contact guarding Education/Exercise: Educated pt on what our role as PTs are in regard to her overall d/c plan; alsoeducated her on safety stair navigation. Assessment: Aniya Lundy was seen today for physical therapy treatment session for continuationof POC. Pt was able to perform all PT mobility activities independently with FWW and under supervision. Pt still has mild LE muscle weakness and minimal balance deficits. Pt was compliant with all PT activities and shows eagerness to go home. Spoke with embedded case manager about her need for FWW and bedside commode. Pt has met all PT goals. She is safe for discharge home with family member with continued home health services from PT standpoint. Therapy Plan: Therapy Frequency (PT): 2-4 times/wk for stairs. Patient / family agrees with plan asstated. Discharge Recommendations: Anticipated Discharge Disposition (PT): home with home health Discussed with MD and pt. Equipment needs: Anticipated Equipment Needs at Discharge (PT): walker, front wheeled Physical Therapy Goals: To be achieved by 12/09/20: all goals met ?? 1. Pt. to demonstrate knowledge of safety limitations and precautions and will appropriately request assistance for functional activities and to mobilize met 2. Pt. to demonstrate understanding of appropriate exercises met 3. Pt. to perform bed mobility with CGA.met 4. Pt. to perform sit to stand transfers with CGA using a device as needed. met 5. Pt. to ambulate 150 feet with CGA using a device as needed. met 6. Pt will tolerate progression towards upright with stable vital signs. met ?? Time IN / OUT: 929 - 999 Total Minutes, Physical Therapy: 30 Minoo Angel, SPT Physical Therapy Inpatient Rehabilitation Department Chart was reviewed and I was present throughout the above therapy session with Minoo Angel, Student Physical Therapist. I have reviewed and agree with the above documentation and plan of care. SHIRA SALCIDO, PT Pager [phone] * Erendira Giron RN - 11/13/2021 5:06 PM EST A&Ox4, forgetful at times, anxious. Worked w/ PT & OT, cleared by speech for regular diet. Up to chair/EOB for meals. EP by to assess pocket and device. Ambulated unit SBA w/ FWW. THis afternoon, reporting right sided pain from ear to jaw, it hurts to eat. Tylenol for discomfort. Arm restrictions reinforced, sling in place for when she sleeps. Call light within reach. * Cammie Pruitt - 11/13/2021 4:49 PM EST Nutrition Services Note - Low Nutrition Acuity Aniya Lundy is a 36 y.o. female Reason for intervention: follow up Nutrition Plan: Pt seen for f/u after coming off TF. Pt previously on puree diet and is now orderedfor Regular as of today. Pt reports significant difficulty chewing. She states that she feels pain throughout her neck and ear on the right side. No recommendation to downgrade at this time as it seems she is able to manage her own choices for now. Pt reports intermittent nausea without emesis, butbelieves it is related to her medication. Pt really enjoys Ensure drinks. Is having problem gettinginsurance approval for Ensure outside of hospital, this is frustrating for her. Continue Ensure 3x/day. Encouraged her to save any extras to bring home. Pt appreciative. Nutrition Services will continue to monitor and f/u. Continue current diet. Multivitamin with minerals. Continue Ensure 3x/day. Monitor weight. Encourage good oral intake. Support and encouragement provided. Active Orders Diet Regular diet Frequency: Effective Now Number of Occurrences: Until Specified Admit Weight: 70 kg Estimated body mass index is 27.8 kg/m?? as calculated from the following: Height as of this encounter: 162.6 cm (5' 4.02). Weight as of this encounter: 73.5 kg (162 lb 0.6 oz). Wt Readings from Last 5 Encounters: 11/13/21 73.5 kg (162 lb 0.6 oz) 10/10/21 72.6 kg (160 lb) 04/23/21 72.6 kg (160 lb) 01/09/21 72.6 kg (160 lb) 05/22/20 70.8 kg (156 lb) Weight loss: none Appetite: Good (50%-75%) Food allergies:no known food allergies Chewing/Swallowing difficulty: patient reports difficulty - RN notified Nausea/Vomiting: nausea and no vomiting Last Bowel Movement: 11/13/21 Patient education / questions: all nutrition related questions answered at this time Nutrition services to follow weekly through hospital course unless consulted in the interim. Cammie Pruitt * Jesus Wayne PA - 11/13/2021 3:13 PM EST Inpatient Cardiac Electrophysiology Progress Note Patient Name: Aniya Lundy Service: Cardiology S1 Responsible Attending: Devin Ricci MD Reason for continued hospitalization: Monitoring following admission for VF arrest in the field which occurred again after injection of her left main coronary artery and subsequent implantation of a sub-cutaneous ICD. Active Problems: Patient Active Problem List Diagnosis Code ??? [...] F17.210 ??? Subcutaneous defibrillator implanted 11/12/2019 Z95.810 Interval History: Ms Lundy underwent successful implantation of a [employer] sub-cutaneous ICD yesterday without complications. She reports tenderness at the pocket. She is somewhat anxious and fatigued from lack of sleep. Review of Systems: Constitutional: - fatigue, - fever, - chills Respiratory: + shortness of breath, - cough, - apnea, - wheezing Cardiovascular: - chest pain, - palpitations, - unusual rates Gastrointestinal: - nausea, - vomiting, - abdominal pain, - diarrhea Neurological: + lightheadedness, - dizziness, - syncope, - weakness Psychiatric: + anxious Medications UNREVIEWED medications - Discuss With Your Provider Dose albuteroL 90 mcg/actuation Hfaa Inhale 2 puffs into the lungs every 4 hours as needed for Wheezing. Use with spacer 2 puff calcium carbonate 200 mg calcium (500 mg) Chew Commonly known as: Tums Take 1 tablet by mouth as needed. 1 tablet cetirizine 10 mg Tab Commonly known as: ZyrTEC TAKE ONE TABLET BY MOUTH EVERY DAY diazePAM 5 mg Tab Commonly known as: Valium Take 1 tablet by mouth in the morning for anxiety. Take half a tablet at night before bed for sleep. esomeprazole 20 mg Cpdr Commonly known as: NexIUM TAKE 1 CAPSULE BY MOUTH ONCE DAILY FOR 30 DAYS famotidine 40 mg Tab Commonly known as: Pepcid TAKE 1 TABLET BY MOUTH ONCE DAILY Flonase Sensimist 27.5 mcg/actuation Spsn every 24 hours. Generic drug: fluticasone Flovent HFA 110 mcg/actuation Hfaa Every 12 hours. Generic drug: fluticasone propionate FLUoxetine 20 mg/5 mL (4 mg/mL) Soln Commonly known as: PROzac GAVISCON ORAL Take by mouth. hydrOXYzine 25 mg Tab Commonly known as: Atarax Take 1 tablet by mouth 3 times daily as needed for Anxiety. 25 mg ipratropium-albuteroL 0.5 mg-3 mg(2.5 mg base)/3 mL Nebu Commonly known as: Duoneb Every 6 hours. KlonoPIN 0.5 mg Tab Every 8 hours. Generic drug: clonazePAM ckfntbfkq-zjsbriwez-jb-mag-sim [id number] mg/30 mL Susp Take by mouth. lisinopriL 10 mg Tab Commonly known as: Zestril Take 10 mg by mouth daily. 10 mg pantoprazole EC 40 mg Tbec Commonly known as: Protonix Take 40 mg by mouth daily. 40 mg prazosin 1 mg Cap Commonly known as: Minipress Take 1 mg by mouth 3 times daily. 1 mg sucralfate 1 gram Tab Commonly known as: Carafate TAKE 1 TABLET BY MOUTH TWICE DAILY ON AN EMPTY STOMACH vitamin C 500 mg Tab TAKE ONE TABLET BY MOUTH EVERY DAY Generic drug: ascorbic acid (Vitamin C) Zofran 4 mg Tab Zofran 4 mg tablet Take 1 tablet every 6-8 hours by oral route as directed for 3 days. Generic drug: ondansetron Vital Signs: Last value Range last 8 hrs Temperature Temp: 36.7 ??C (98.1 ??F) Temp: [36.7 ??C (98.1 ??F)] Heart Rate Heart Rate: 88 Heart Rate: [62-88] Blood Pressure BP: 129/78 BP: (123-139)/(75-81) Respiratory Rate Resp: 18 Resp: [18] SpO2 SpO2: 97 % SpO2: [97 %-100 %] Physical Exam: General- No acute distress, laying comfortably in bed Skin- Warm and dry. Pocket appears to be healing well; no ecchymosis or edema noted. Tenderness appreciated over pocket. Cardiovascular- S1/S2 regular rate and rhythm. No murmur, rub or gallop Lungs- Clear to auscultation bilaterally Extremities- Pulses equal bilaterally. No edema noted. Neuro- A&Ox3, anxious appearing Device Interrogation: Generator: Beatpacking A219 EMBLEM??? MRI S-ICD / [id number] Electrode: 3501 / [id number] Current Device Settings Therapy: ON Shock Zone: 240 bpm Conditional Shock Zone: 200 bpm Post Shock Pacing: ON SMART Pass: ON Gain SettinX Sensing Configuration: Secondary Shock Polarity: STD Lab Results Component Value Date WBC 17.1 (H) 11/13/2021 HGB 9.5 (L) 11/13/2021 HCT 29.3 (L) 11/13/2021 PLATELET 399 (H) 11/13/2021 Component Value Date NA 138 11/13/2021 K 4.3 11/13/2021 CL 108 (H) 11/13/2021 BUN 21 (H) 11/13/2021 CREATININE 0.89 11/13/2021 MAGNESIUM 0.84 11/13/2021 Chest x-ray: Interval placement of single lead ICD without radiographic finding of complication. Persistent findings of mild pulmonary vasculature congestion. Assessment: - 36 year-old female underwent implantation of subQ ICD without complications for secondary prevention of VF arrest. - Device is functioning properly and pocket is healing well. - CXR negative for post-implant complications - No programming changes made Plan: - Reviewed standard post-implant discharge instructions (see patient instructions) including arm restrictions, wound care, bathing, and driving. - No medication changes. - Device monitor will be delivered to her home and device clinic will contact her to help her get it set up. - Follow up in device clinic for wound/device check in ~10 days - EP will sign off. Please page [phone] with questions or concerns. EDEN White 11/13/2021 Associated attestation - Devin Ricci MD - 11/14/2021 2:48 AM EST Cardiac Electrophysiology Attending Addendum: The patient was seen, interviewed and examined by me, and Jesus Wayne PA-C's note above was reviewed by me and agreed with. Aniya Lundy is a 36 y.o. female aborted suddedn cardiac survivor, found to have diffuse and significant (arrhythmia inducing) vasospasm at cath, now on systemic v asodilators and s/p SQ ICD placement, w/o apparent complication. Will sign off for EP at this juncture, with EP follow-up plans as provided by Agnes Wayne. Devin Ricci MD, PhD, [facility] Cardiac Electrophysiology * Roz Pisano MSW - 11/13/2021 2:23 PM EST Patient has been seen face to face by 2 CHUCK SPLITTER to discuss safety concerns.Given safety resources by a third CHUCK SPLITTER.And a 4th CHUCK SPLITTER spoke to her fiance as he was upset about doing cpr on her for 10 minutes before help arrived.Also, patients Mother was spoken to by SI team. Neither patient nor her Mother gave any information that patient was feeling unsafe at home at thistime.She is aware of what resources to call if she needs assistance. Roztha Pisano CHUCK SPLITTER,RECEIVER [id number] * Roz Pisano MSW - 11/13/2021 2:15 PM EST CHUCK SPLITTER referral placed due to patients concern about why zay was not allowed to come in and visit her when he was when she was first admitted.Please see note of 11/12/2021 when this was discussed.The floor is following COVID protocol.Bedside nurse Erendira reported that patient was asleep as she had worked very hard with OT/PT today in hopes of being discharged tomorrow and was very tired. Erendira will give patient Patient Relations number so she can talk to them about her concerns as this is Hospital Policy at this time. Roz Pisano CHUCK SPLITTER,RECEIVER [id number] * Shira Salcido, PT - 11/13/2021 11:17 AM EST Physical Therapy Note Treatment Number PT: 2 Patient profile: Aniya Lundy is a 36 y.o. right-handed female admitted on 11/04/[address] Valorie Obrien MD with a history of??tobacco use, hypertension on ZANE-I at home, anxiety,??depression, bipolar disorder, suicidal ideation and recent COVID-19 infection (diagnosed 09/27/2021)??who suffered an out of hospital VF arrest 11/04; with multiple subsequent VF arrests in CVCC and in cath labs on 11/04 found to have diffuse coronary and large vessel vasospasm. She was intubated on admission, was followed by neurology for EEG monitoring with concern for seizures, and was extubated on 11/07. Neurology recommends obtaining MRI brain and MRA head to look for evidence of vasospasm and evidence of infarct that might suggest prior vasospasm. Psychiatry has been consulted due to patient's verbalization of not wanting to live like this to RN and with prior SI history and psych admits. Interval History: ICD placed 11/12. She is now on 4East. Social History: lives in [place], [place] and her boyfriend, Dk, occasionally stays with her; works at [employer] in [place], [place]; per chart, she has 3 children, all of whom live with family members outside of her home Home set-up: 2-level apartment Bathroom Set-up: TBD Stairs: flight to bathroom and bedroom on 2nd floor Baseline Mobility: independent Equipment at home: none Fall history: patient denies ?? Precautions/Special Considerations: all risk; cardiac; pacer (ICD) precautions left Lines: bilateral cubital PIV's; yang Activity Orders: as tolerated Mobility and Positioning Recommendations: ?? Pt. Requires assist of 1 and fww for transfers and gait. ?? Please encourage up to chair for meal times as able. Subjective: Do I need a walker at home? Objective: Patient seen for physical therapy and demonstrated the following: Pain: Min c/o pain left incision area and chest GERD type pain. Cardiopulmonary: On room air. SpO2: 99 % HR: 70's bpm BP: 137/72 mmHg Cognition: following commands, pleasant, repeating herself at times, but appropriate. Bed Mobility: Supine to sit: With supervision Sit to Supine: nt Scooting: ind Rolling to R/L: ind Transfers: Sit to Stand: x 3 with cg to fww after donning pants and standing BP. Stand to Sit: with cg Balance: Sitting: good Standing: fair with fww. Gait: Distance: 150' Assistance Needed: close cg and assist /cues to slow pace and stand closer to fww for balance and safety. Pattern: forward posture with at times , poor LE motor control Education/Exercise: reviewed plan for stairs tomorrow and DME needs for home. Pt was instructed to continue to walk this evening. Pt left in cc with chair alarm on, call flaherty within reach, all needs met, RN aware. Assessment: Aniya Lundy was seen today for physical therapy treatment session for continuationof POC. Pt has made excellent gains toward mobility goals with improved gait, transfers and bed mobility. She remains limited by minimal balance and strength impairments as well as new shoulder precautions on left that she has trouble remembering. Pt will benefit from one more session for stairs prior to d/c.. Therapy Plan: Therapy Frequency (PT): 1-2 more times for stairs. Patient / family agrees with plan as stated. Discharge Recommendations: Anticipated Discharge Disposition (PT): home with home health Discussed with MD and pt. Equipment needs: Anticipated Equipment Needs at Discharge (PT): walker, front wheeled Physical Therapy Goals: To be achieved by 12/09/20: ?? 1. Pt. to demonstrate knowledge of safety limitations and precautions and will appropriately request assistance for functional activities and to mobilize. 2. Pt. to demonstrate understanding of appropriate exercises. 3. Pt. to perform bed mobility with CGA.met 4. Pt. to perform sit to stand transfers with CGA using a device as needed. met 5. Pt. to ambulate 150 feet with CGA using a device as needed. met 6. Pt will tolerate progression towards upright with stable vital signs. met ?? Time IN / OUT: 8761-3164 Total Minutes, Physical Therapy: 47 (fm x 1) SHIRA SALCIDO, PT Pager: [phone] Physical Therapy Inpatient Rehabilitation Department * Dianna Tomlinson, STRIP CUTTING MACHINE OPERATOR - 11/13/2021 10:59 AM EST Speech Therapy Note Patient Profile: Aniya Lundy is a 36 y.o. female admitted on 11/04/2021 :??Aniya Lundy??is a 36 y.o.??female?with a history of??tobacco use, hypertension on ZANE-I at home, anxiety,??depression and recent COVID-19 infection (diagnosed 09/27/2021)??who suffered an out of hospital VF arrest 11/04; with multiple subsequent VF arrests in CVCC and in cath labs on 11/04 found to have diffuse coronary and large vessel vasospasm, on hospital day 2.?? ? Aspiration PNA. EEG w/o indication of seizure as per Neurology noted, Neurology recommending MRI. Pt recently extubated. DHT placed but not yet in use. Bedside Swallow Evaluation ordered. Active Problems: Active Hospital Problems ?? Diagnosis ? Cardiac arrest ? Cigarette smoker ? Coronary artery vasospasm ? *History of COVID-19 ? Post-traumatic stress disorder, chronic ? Borderline personality disorder ? Anxiety disorder, unspecified ? The patient is a 34-year-old woman who presented with worsening anxiety surrounding nonspecific somatic complaints such as full body tingling. She has a number of existing medical issues such as HTN, asthma, and GERD, the symptoms of which (e.g. heartburn, cough) tend to provoke her anxiety. ? Depression ? Asthma ? Rx PRN albuterol Pulmonary workup negative 2007 (in [facility]) ? Hypertension ? Onset 2013, variable BP highs of 160-170 systolic, then normal Interval History: Pt seen for Bedside Swallow Study on 11/08/2021 while still in ICU, recommended pureed diet, regular liquids at that time, pt was hoarse, groggy s/p extubation, and w/ coughing / choking noted on solids. Pt now floor level, voice clearer. Subjective: I just want to go home. Objective: Pt seen for dysphagia management and demonstrated the following: Pain: pt c/o mild sore throat when swallowing, otherwise no complaints Respiratory Status: Room air Current Diet: Puree diet, Regular liquids Feeding / Oral Care Status: Pt is independent Cognitive-Linguistic Status: alert, oriented to person, place, and time and affect appropriate to mood Command Following: Follows single step commands Positioning: HOB at 80 degrees Oral / Laryngeal Mechanism Clinical Assessment: WFL, mild hoarseness Bolus Presentation(s): ?? Thin liquid via straw, sequential sips ?? Regular solid Oral Preparatory Phase: adequate lip seal w/ spoon and functional draw on straw; adequate mastication, bolus cohesion and A-P propulsion WFL, swallow initiation appears prompt, no oral residue noted in mouth after swallow; Pharyngeal Phase: appears WFL, swallow appears prompt, distinct, and complete; no coughing, throat clearing, changes in voice or respiratory status noted; pt denies globus sensation and swallows x1 for each bite and sip Esophageal Phase: no concerns or complaints noted or reported at this time Education: Reviewed basic aspiration precautions w/ pt. Pt demonstrating understanding. Assessment: Pt was seen today for a follow-up STRIP CUTTING MACHINE OPERATOR visit. AMS, voice, and swallow have all improved,returning to baseline, pt now tolerating regular solids and liquids w/o overt clinical s/s oropharyngeal dysphagia Diagnosis: oropharyngeal dysphagia (resolved), dysphonia (resolved) Recommendations: Diet: Regular solids, Thin liquids PO medications: whole with sip of liquid Aspiration Precautions: Upright position during meals and for at least 30 mins following Excellent oral care Speech Therapy Goals: Pt will tolerate least restrictive diet without evidence of dysphagia / aspiration. Pt / caregiver will be independent with aspiration precautions, diet modifications, and safe swallowing strategies. Plan: Therapy Frequency (STRIP CUTTING MACHINE OPERATOR Eval): 1-3 times/wk Pt./family are in agreement with treatment plan. Total Minutes (Speech Language Pathology): 24 Dianna Tomlinson MA, [facility]-STRIP CUTTING MACHINE OPERATOR Pager: [phone] Speech-Language Pathology Inpatient Rehabilitation Medicine * Tatiana Barriga, OT - 11/13/2021 10:33 AM EST Occupational Therapy Evaluation Patient profile: Aniya Lundy is a 36 y.o. female admitted on 11/04/2021 with a history of??tobacco use, hypertension on ZANE-I at home, anxiety,??depression and recent COVID-19 infection (diagnosed 09/27/2021)??who suffered an out of hospital VF arrest 11/04; with multiple subsequent VF arrests inCVCC and in cath labs on 11/04 found to have diffuse coronary and large vessel vasospasm. Now s/p ICD placed with EP under GA on 11/12. She has continued on a calcium channel nash for vasospasms without any new issues including ventricular arrhythmias/new chest pain. Past Medical History: Diagnosis Date ??? *History [...] ENDOSCOPY performed by Dudley Alva MD at [facility] END[facility] Social History: Patient lives with her fiance in a 2 level apartment with no stairs to enter. She stated her motherand sister may also be able to provide support at home after discharge. Home Setup: Bedroom and bathroom are on the second level. DME: None reported. Baseline ADL/Mobility: Pt reported she was independent with ADLs and did not use a device for mobility. She stated her fiance works during the day close to their home and does the cooking. Precautions/Special Considerations: fall risk, LUE ICD precautions - Arm is not to be raised above shoulder level Subjective: Agreeable to participate. Objective: Seen today for OT evaluation. Cognitive Status/Behavior: ?? Behavior / Mood: alert and cooperative ?? Alert and oriented to: person, place and time ?? Follows commands: 1 step and 100% of the time ?? Attention: WFL ?? Safety awareness: decreased insight into deficits Vision & Perception: ?? WFL Communication: WFL Range of motion, strength, coordination: Hand dominance: right Bilateral UEs are within functional limitations with restrictions in LUE movement secondary to ICD placement LE limitations: WFL Activities of Daily Living: Self-feeding: Set up Grooming: Pt was provided mod assist with combing knots out of hair due to LUE precautions. She required mod cues for following precautions. Dressing: Pt was provide education for use of compensatory strategies and supervision for UB dressing to maintain LUE precautions. She donned pants with supervision assist during stand to hike. Bathing: Not assessed. Toileting: Transfer: Supervision assist Hygiene: Independent Functional Mobility: Supine to sit: Supervision assist Sit to stand: Supervision assist Ambulation: Supervision assist, 150 feet Stand to sit: Supervision assist Sit to supine: Not assessed - seated in recliner chair for breakfast/lunch. Balance: Sitting balance: Good Standing balance: Good with use of FWW. Vitals: RA At Rest With Activity SpO2 99% Heart Rate 73 103 Blood Pressure 126/73 Pain: Pt complained of R jaw pain stating that it was uncomfortable when she drinks, and L flank pain. Pt was able to tolerate activity with minimal complaints. Skin: incision chest Education: patient have been educated on Role of occupational therapy/rehabilitation, Transfers, Assistive device/technique, ADL, Safety, Precautions/Protocol, Functional Mobility, Activity pacing/Energy conservation, Home Management, Balance, Recommendations and Discharge planning and verbalizes understanding. Patient status, treatment, and mobility recommendations discussed with nursing. Assessment: Pt has been seen for occupational therapy evaluation. Aniya Lundy presents with the following performance skill deficits and client factors: increased pain, decreased activity tolerance, decreased strength, precautions/bracing, coping and memory impairement. These performance deficits have led to activity limitations and participation restrictions in the following areas of occupation: bathing, home management and community mobility. Pt presented as pleasant and cooperative. Shewas provided education for LUE precautions and use of compensatory strategies during ADLs in order to maintain precautions. She required mod cues during the assessment for maintaining LUE precautionsand was provided sling for LUE at her request to be used as a reminder to maintain precautions. Pt was able to perform basic ADLs with supervision assist. Recommend home health OT/PT services upon discharge for home safety evaluation and to support return to prior level of functioning. Pt would benefit from further inpatient OT interventions to address performance deficits and maximize participation and independence with occupations of daily living. Equipment needs at discharge: FWW, 3 in 1 commode Anticipated Discharge Disposition (OT): home with home health,home with supervision Other Recommendations: ?? Transfer to recliner chair as appropriate and ambulate as tolerated with supervision assist and FWW ?? Encourage participation in ADL's by providing set up A on tray table and physical assist only asneeded Other Recommendations: No other consults recommended at this time Goals: To be achieved by November 27, 2021. Pt will complete 2 grooming tasks standing at the sink at modified independence without cues to maintain LUE precautions. Pt will complete toileting routine at modified independence including transfer to the bathroom, clothing management, and hygiene. Pt will complete UB bathing and dressing in sitting after set up while maintaining LUE precautions. Pt will complete full LB dressing routine at modified independence using AE as needed. Pt will complete functional transfers and mobility of a household distance at modified independencefor participation in (I)ADLs using self pacing as needed. Plan: OT: Therapy Frequency (OT): 1-3 times/wk Planned OT interventions: Role of occupational therapy/rehabilitation, Transfers, Assistive device/technique, Adaptive equipment training, ADL, Exercise, Breathing exercises, Positioning, Safety, Precautions/Protocol, Functional Mobility, Activity pacing/Energy conservation, Home Management, Balance, Recommendations, Family training and Discharge planning. Total Minutes, Occupational Therapy: 57 2016 OT Evaluation Code Rationale: ?? Diagnosis & Pertinent Co-Morbidities affecting Plan of Care: see PMHx ?? Occupational Profile & Client History: Brief Expanded Extensive X ?? Assessment of Occupational Performance: 1-3 performance deficits 3-5 performance deficits 5 + performance deficits X ?? Clinical Decision Making: Low Moderate High X Clinical decision making of moderate complexity using standardized patient assessment instrument and measurable assessment of functional outcome. Pager: [phone] Tatiana Barriga OT 11/13/2021 Occupational Therapy Rehabilitation Department * Shana Zurita MD - 11/13/2021 5:55 AM EST Images from the original note were not included. Cardiology Progress Note?? Patient info: Name: Aniya Lundy : 1985 PCP: Kenia Lawrence APRN PCP phone number: [phone] Date of Admission: 11/04/2021 ( Hospital Day 9 days ) Attending:Neeraj Pompa MD ID: Aniya Lundy is a 36 y.o. female with a history of tobacco use, hypertension on ZANE-I at home, anxiety, depression and recent COVID-19 infection (diagnosed 09/27/2021) who suffered an out of hospital VF arrest 11/04; with multiple subsequent VF arrests in CVCC and in cath labs on 11/04 found to have diffuse coronary and large vessel vasospasm, on hospital day 7. Chief Complaint Patient presents with ??? Cardiac Arrest 24 Hour Events/Subjective: Yesterday: -Still having reproducible chest pain (where had CPR +shocks). - s/p ICD placed with EP under [facility] - Social work/bit team following. - PT and STRIP CUTTING MACHINE OPERATOR reassessment pending Overnight: -- LISEO This AM: - Reports feeling OK today. Endorsing that her gerd very intense this morning, reports having very back heart burn at home. Denies positional component or relation to food, not having any acid reflux. Still with some chest wall tenderness but improving. Denies fevers, chills, chest pain, palpitations, SOB, LH/dizziness. Objective: Vitals Last value Range last 24 hrs Temperature Temp: 36.7 ??C (98.1 ??F) Temp: [36.2 ??C (97.2 ??F)-36.9 ??C (98.4 ??F)] Heart Rate Heart Rate: 88 Heart Rate: [62-103] Blood Pressure BP: 129/78 BP: (103-143)/(66-81) Art Line BP BP (Arterial Line): 75/64 BP (Arterial Line): -- MAP (NBP): [78 mmHg-93 mmHg] Respiratory Rate Resp: 18 Resp: [18-30] SpO2 SpO2: 97 % SpO2: [95 %-100 %] Oxygen Delivery Oxygen Therapy O2 Device: None (Room air) O2 Flow Rate (L/min): 6 L/min FiO2 (%): 100 % Intake/Output Summary (Last 24 hours) at 11/13/2021 1336 Last data filed at 11/13/2021 1200 Gross per 24 hour Intake 2220 ml Output 1855 ml Net 365 ml Patient Vitals for the past 168 hrs: Weight 11/13/21 0121 73.5 kg (162 lb 0.6 oz) 11/12/21 0543 72.2 kg (159 lb 2.8 oz) 11/11/21 0600 72.6 kg (160 lb 0.9 oz) 11/10/21 0531 74.7 kg (164 lb 10.9 oz) 11/09/21 0600 71.9 kg (158 lb 8.2 oz) 11/08/21 0400 81 kg (178 lb 9.2 oz) 11/07/21 0400 81 kg (178 lb 9.2 oz) Admit wt: 70 kg Physical Exam: Gen: Sitting up in bed, No acute distress. HEENT: PERRLA, EOMI, no icterus, MMM CV: Regular rate and rhythm. No murmurs appreciated. Pain with palpation of chest Pulm: Normal respiratory effort, coarse breathe sounds. Abd: Soft, non-tender, non-distended. No guarding or rebound. Ext: No pedal edema. No gross abnormalities. BLE arm pain. Neuro: Awake, alert. Moves extremities spontaneously. Cranially nerves grossly intact. 4/5 BUE weakness. Labs: Recent Labs 11/13/21 0430 11/12/21 0448 11/11/21 0442 11/09/21 0040 11/08/21 0430 WBC 17.1* 10.6* 11.5* 16.5* 18.3* HGB 9.5* 9.7* 10.5* 10.5* 8.6* HCT 29.3* 30.2* 32.0* 32.0* 27.3* PLATELET 399* 343 331 237 154 MCV 81.6* 81.6* 80.8* 80.6* 82.7 Recent Labs 11/13/21 0430 11/12/21 0448 11/11/21 1841 11/11/21 0442 11/10/21 1807 11/10/21 1006 11/09/21 1824 11/09/21 0040 11/08/21 1905 11/08/21 0430 NA 138 140 -- 141 -- -- -- 138 -- 141 CL 108* 105 -- 104 -- -- -- 103 -- 108* CO2 20* 23 -- 21* -- -- -- 24 -- 23 K 4.3 3.5 -- 3.4* -- -- -- 3.5 -- 4.0 MAGNESIUM 0.84 -- 0.83 0.93 0.83 0.82 < > 0.97 < > 0.85 CALCIUM 8.7 8.4* -- 8.5 -- -- -- 9.0 -- 8.3* BUN 21* 17 -- 23* -- -- -- 22* -- 12 CREATININE 0.89 0.87 -- 0.92 -- -- -- 0.84 -- 1.00 < > = values in this interval not displayed. LFTs No results for input(s): PROT, ALBUMIN, AST, ALT, ALKPHOS, BILITOT, BILIDIR in the last 168 hours. Coags No results for input(s): INR, PT, PTT, FIBRINOGEN, DDIMER in the last 168 hours. Invalid input(s): THROMBIN TIME Cardiac Enzymes No results for input(s): CK, TROPONINT, PROBNP in the last 168 hours. Endocrine Recent Labs 04/23/21 1910 TSH 1.97 No results for input(s): POCGLU in the last 168 hours. Heme No results for input(s): LDH, HAPTOGLOBIN, URICACID in the last 168 hours. ABG (Arterial Blood Gas) Recent Labs 11/07/21 0940 11/07/21 0630 11/07/21 0207 11/06/214 11/06/21 1759 PHART 7.34* 7.23* 7.25* 7.24* 7.23* OWO0MOW 37 46* 40 42 43 PO2ART 88 90 117* 80* 71* HYV4TPO 19.2* 18.6* 17.0* 17.6* 17.6* LACTATEVEN 0.6 0.4* 0.5 0.9 1.7 QYL6OAU 40 50 70 80 70 PFRATIOART2 220 180 167 100 101 VBG (Venous Blood Gas) Recent Labs 11/07/21 0940 11/07/21 0630 11/07/21 0207 11/06/21204311/06/21 1759 LACTATEVEN 0.6 0.4* 0.5 0.9 1.7 Mixed Venous Sat No results for input(s): R2HDUM1 in the last 168 hours. Microbiology: Microbiology Results (Last 30 days) Procedure Component Value Units Date/Time MRSA PCR [[id number]] Collected: 11/08/21 1010 Lab Status: Final result Specimen: Nasopharyngeal Swab Updated: 11/09/21 0806 MRSA Result Negative MRSA Interp -- Negative for methicillin-resistant Staphylococcus aureus (MRSA) This test was performed using the GeneXpert?? Dx System and the Xpert MRSA Assay. The MRSA target DNA was not detected. The sample processing control and probe check were valid. The performance of this test was determined by the [facility] Molecular Pathology Laboratory. It has been cleared by the U.S. Food and Drug Administration for clinical use. Comment: [VERIFIED DATE]11.09.21 Verified By:Dudley Cook (Electronic Signature) Blood culture [[id number]] Collected: 11/06/211999 Lab Status: Final result Specimen: Blood from Hand, Left Updated: 11/11/21 2301 Blood Culture No growth at 5 days. Blood culture [[id number]] Collected: 11/06/21 1847 Lab Status: Final result Specimen: Blood Updated: 11/11/21 2301 Blood Culture No growth at 5 days. Lower Respiratory Culture Tracheal Aspirate [[id number]] Collected: 11/06/21 1220 Lab Status: Final result Specimen: Tracheal Aspirate Updated: 11/09/21 1041 Lower Respiratory Culture Many mixed bacterial morphotypes suggestive of normal upper respiratory al Gram Stain -- Many Neutrophils seen Few squamous epithelial cells seen Many mixed bacterial morphotypes suggestive of normal upper respiratory al Blood culture [[id number]] Collected: 11/04/21 2250 Lab Status: Final result Specimen: Blood from Hand, Right Updated: 11/10/21 0701 Blood Culture No growth at 5 days. Blood culture [[id number]] Collected: 11/04/21 2215 Lab Status: Final result Specimen: Blood from Antecubital, Right Updated: 11/10/21 0701 Blood Culture No growth at 5 days. COVID-19 PCR [[id number]] Collected: 11/04/21 0735 Lab Status: Final result Specimen: Nasopharyngeal Swab Updated: 11/04/21 1246 SARS-CoV-2 RNA PCR Not Detected Comment: This result should be interpreted in combination with the clinical observations, patient history and epidemiological information. For testing of asymptomatic individuals, assay performance characteristics and clinical utility have not been evaluated. Testing for SARS-CoV-2 (Severe acute respiratory syndrome coronavirus 2, formerly known as 2019 novel coronavirus or 2019-nCoV) to aid in the diagnosis of COVID-19 is performed using the Simplexa COVID-19 Direct Assay by [employer] as authorized by the FDA issued Emergency Use Authorization (EUA). This assay is intended for In-vitro Diagnostic (IVD) use with nasopharyngeal swabs collected from individuals meeting the CDC criteria for testing. The assay is performed based on the instructions for use and additional guidance provided by the FDA. Testing is performed in the Microbiology Laboratory within the Department of Pathology and Laboratory Medicine at [facility], certified under the Clinical Laboratory Improvement Amendments of 1988 (CLIA), 42 U.S.C. section 263a, to perform high complexity tests. Assay performance has been verified according to clinical laboratory regulatory requirements. Test results are provided above. A result of Not Detected indicates that [...] test are highly dependent on disease prevalence. A result of Invalid indicates the inability to conclusively determine the presence or absence of SARS-CoV-2 RNA in the sample which can be due to a variety of factors. Recollection is recommended in the case of an invalid result. CDC COVID-19 criteria for testing on human specimens and clinical management guidance information are available at the CDC Coronavirus Disease 2019 (COVID-19) webpage under Information for Healthcare Professionals (https://www.cdc.gov/coronavirus/2019-ncov/hcp/index.html). Additional information about this and other EUA tests can be found in provider and patient fact sheets at the following FDA website: https://www.fda.gov/medical-devices/xdefloovbyc-ostxiau-4265-khoug-03-kkepkhydi- fsq-xgsvzigjeiwcoz-oagtwzp-devices/gtteo-jdbmnvkmxni-csfp SARS-CoV-2 Source CIVILIAN JAIL OFFICER Swab Imaging: Results for orders placed or performed during the hospital encounter of 11/04/21 XR Chest One View (Exam End: 11/04/2021 10:09 AM) Impression Endotracheal tube terminates over the mid trachea. Thank you for letting us participate in the care of this patient. If you are a health care provider and have any questions regarding this report, please contact the number below. For patients who have questions please contact the health home day care provider that requested your imaging first. Abdomen 1 view (Generic) (Exam End: 11/04/2021 10:09 AM) Impression Orogastric tube placement, as above. Thank you for letting us participate in the care of this patient. If you are a health care provider and have any questions regarding this report, please contact the number below. For patients who have questions please contact the health home day care provider that requested your imaging first. Head wo Contrast (Generic) (Exam End: 11/04/2021 9:37 AM) Impression Diffuse cerebral edema consistent with the history. I have personally reviewed the image(s) and the resident's interpretation and agree with the findings, Alejo Garcia MD at 11/04/2021 9:55 AM Thank you for letting us participate in the care of this patient. If you are a health care provider and have any questions regarding this report, please contact the number below. For patients who have questions please contact the health home day care provider that requested your imaging first. Angiogram Chest for Pulmonary Embolus w Contrast (Exam End: 11/04/2021 9:37 AM) Impression 1. No pulmonary embolism identified. 2. Bibasilar atelectasis, particularly on the left where there is collapse of much of the left lower lobe. 3. Hazy opacities within the inferior left upper lobe are nonspecific and may be infectious or traumatic in nature. 4. Motion artifact or nondisplaced fracture of the mid sternum. Motion artifact is favored. Recommend clinical correlation. Thank you for letting us participate in the care of this patient. If you are a health care provider and have any questions regarding this report, please contact the number below. For patients who have questions please contact the health home day care provider that requested your imaging first. Chest One View (Exam End: 11/04/2021 8:22 PM) Impression 1. Lines and tubes as above. 2. Small left pleural effusion and left basilar atelectasis, compatible with expected postprocedural changes. I have personally reviewed the image(s) and the resident's interpretation and agree with the findings, Jennifer Bassett MD at 11/04/2021 8:53 PM Thank you for letting us participate in the care of this patient. If you are a health care provider and have any questions regarding this report, please contact the number below. For patients who have questions please contact the health home day care provider that requested your imaging first. Chest One View (Exam End: 11/05/2021 8:40 AM) Impression 1. Intra-aortic balloon pump marker is 1.8 cm below the aortic knob. 2. Slightly improved left basilar atelectasis and resolved left pleural effusion. I have personally reviewed the image(s) and the resident's interpretation and agree with the findings, Danielle Rausch MD at 11/05/2021 9:48 AM Thank you for letting us participate in the care of this patient. If you are a health care provider and have any questions regarding this report, please contact the number below. For patients who have questions please contact the health home day care provider that requested your imaging first. Chest One View (Exam End: 11/06/2021 6:36 AM) Impression * Equipment as above. * Mild pulmonary vascular congestion. Thank you for letting us participate in the care of this patient. If you are a health care provider and have any questions regarding this report, please contact the number below. For patients who have questions please contact the health home day care provider that requested your imaging first. Electronically signed by: Kimberley Pichardo MD, [facility] ([phone]), at 11/06/2021 6:47 AM XR Chest One View (Exam End: 11/06/2021 6:39 PM) Impression 1. New indistinct opacities in the left lower lung may represent combination collapse/consolidation left lower lobe with overlying small left pleural effusion. 2. Mild pulmonary vascular congestion, stable. 3. Support equipment as above. I have personally reviewed the image(s) and the resident's interpretation and agree with the findings, Danielle Rausch MD at 11/07/2021 9:56 AM Thank you for letting us participate in the care of this patient. If you are a health care provider and have any questions regarding this report, please contact the number below. For patients who have questions please contact the health home day care provider that requested your imaging first. Chest One View (Exam End: 11/07/2021 9:16 AM) Impression 1. Tubes and lines with expected position. 2. Persistent atelectasis/airspace consolidation at the left medial base unchanged from prior. Significant improvement in inflation of the right lower lobe. 3. Decreased central pulmonary vascular congestion and interstitial edema. Thank you for letting us participate in the care of this patient. If you are a health care provider and have any questions regarding this report, please contact the number below. For patients who have questions please contact the health home day care provider that requested your imaging first. Abdomen 1 view (Generic) (Exam End: 11/07/2021 11:25 AM) Impression The distal tip of the nasogastric tube projects in the region of the antrum of the stomach. Thank you for letting us participate in the care of this patient. If you are a health care provider and have any questions regarding this report, please contact the number below. For patients who have questions please contact the health home day care provider that requested your imaging first. Chest PA & Lateral (Generic) (Exam End: 11/12/2021 6:59 AM) Impression Resolved prior retrocardiac left lower lobe opacity. No acute cardiopulmonary pathology identified. Thank you for letting us participate in the care of this patient. If you are a health care provider and have any questions regarding this report, please contact the number below. For patients who have questions please contact the health home day care provider that requested your imaging first. Chest PA & Lateral (Generic) (Exam End: 11/13/2021 6:56 AM) Impression Interval placement of single lead ICD without radiographic finding of complication. Persistent findings of mild pulmonary vasculature congestion. Thank you for letting us participate in the care of this patient. If you are a health care provider and have any questions regarding this report, please contact the number below. For patients who have questions please contact the health home day care provider that requested your imaging first. Medications Scheduled Meds: ??? lisinopriL 20 mg Oral Daily ??? prazosin 2 mg Oral Nightly ??? clonazePAM 1 mg Oral BID ??? guaiFENesin ER 600 mg Oral 2 times per day ??? amLODIPine 10 mg Oral Daily ??? lidocaine 3 patch Transdermal Q24H And ??? lidocaine 3 patch Transdermal Q24H ??? atorvastatin 40 mg Oral QPM ??? famotidine 20 mg Oral BID ??? chlorhexidine 15 mL Oral BID ??? white petrolatum-mineral oiL 1 each Both Eyes BID ??? sodium chloride 0.9 % (flush) 5 mL Intravenous BID ??? white petrolatum-mineral oiL Topical (Top) Q8H SONALI Continuous Infusions: PRN Meds:.alum-mag hydroxide-simeth, methyl salicylate-menthoL, hydrOXYzine, ondansetron, clonazePAM, acetaminophen, ibuprofen, senna, sodium chloride 0.9 % (flush), nitroGLYcerin Assessment & Plan: Aniya Lundy is a 36 y.o. female with a history of tobacco use, hypertension on ZANE-I at home, anxiety, depression and recent COVID-19 infection (diagnosed 09/27/2021) who suffered an out of hospital VF arrest 11/04; with multiple subsequent VF arrests in [facility] and in cath labs on 11/04 found to have diffuse coronary and large vessel vasospasm. Aniya is doing well overall, had her subq - ICD placed with EP yesterday. She has continued on a calcium channel nash for vasospasms without any new issues including ventricular arrhythmias/new chest pain. Will continue to advance diet as tolerated and continue to work with PT/OT to gain strength. Given she has never had typical chest pain at home and endorsed heart burn in the past will trial nitro prn to see if this pain may be related to spasm (esophageal, vascular etc). Will have PT reassess today (has stairs at home) and have STRIP CUTTING MACHINE OPERATOR repeat swallow study to see if she can advance to regular diet. # Vasospasm # Cardiac Arrest #HTN - Subq ICD placed on 11/13 - s/p nicardipine - s/p amio and lidocaine - s/p pressors - continue amlopidine 10mg. - Continue lisinopril 20mg qd - Atorvastatin 40 mg daily (possible benefit to vasospasm) - Consider nitro prn (for vasospasm) ?? # b/l UE pain and weakness - PT/OT - Tylenol prn - Topical bengay cream prn # JENNIFER - resolved - Good UOP. - Will diurese if needed. ?? #Anemia - Monitor hemoglobin #concern for aspiration pna vs VAP #fever - Continue cefepime 1g QD for 7 days of empiric treatment - s/p metronidazole (anerobic coverage) - s/p Vanc - Trend WBC ?? # Bipolar # Anxiey - klonopin 1mg BID - prazosin 2mg qhs - BIT team consulted - SW consulted ?? #Routine Diet: Regular diet DVT Prophylaxis: sub q lovenox GI Prophylaxis: famotidine Code Status: Attempt Cardiopulmonary Resuscitation - Inpatient Dispo: Pending clinical course Shana Zurita MD Internal Medicine, PGY1 Cardiology, M1-S1, #3011 11/13/21 1:36 PM Associated attestation - Neeraj Pompa MD - 11/13/2021 10:43 PM EST Cardiology Attending Addendum Active Hospital Problems Diagnosis Cardiac arrest Coronary artery vasospasm *History of COVID-19 Subcutaneous defibrillator implanted 11/12/2019 Cigarette smoker Post-traumatic stress disorder, chronic Borderline personality disorder Anxiety disorder, unspecified Depression Asthma Hypertension Resolved Hospital Problems No resolved problems to display. I have interviewed and examined the patient, reviewed the available data, and have discussed my findings, assessment and plan with the patient and the team on rounds today. I agree with Dr. Zurita's note as below which reflects our discussion. * Aura Lamas RN - 11/13/2021 4:56 AM EST Pt visibly anxious at beginning of shift and wanting to consult with social work/case management inregards to current social situation r/t fiance not being allowed to see her earlier in her admission. Incision sites CDI. Some bruising underneath dressing. Ibuprofen and tylonel given for pain. PRN atarax offered and refused. PRN zofran given for nausea. Plan for PT consult and speech consult. CXR this AM. * Erendira Giron RN - 11/12/2021 6:12 PM EST A&Ox4. SQ ICD placed, incisional sites WDL, tolerated well. Ibuprofen and Tylenol PRN for discomforts. * Roz Pisano MSW - 11/12/2021 2:09 PM EST Met with patient at bedside previous to her procedure.Patient states that she is nervous about having the procedure done because she is afraid of going under because she is concerned she will not wake up.Discussed her past experiences with being put under and how her team was able to give her a safety plan if she felt uncomfortable.She does not believe that she has to be put under for her ICD procedure.She felt that the team did not listen to her and was condescending.This short story writer asked her permission to talk to the team and see if they could come back and talk to her before the procedure to eleviate some of her concerns.She gave this short story writer permission to talk to the team. Patient also expressed her frustration with not being allowed to have her family come to see her.Patient reported that she was safe at home but her fiance doing cpr on her for 10 minutes has done something to his head she reported.(he did speak to CHUCK SPLITTER at length) Patient states she is safe at home and her fiance stays with her once stuart while but not all of the time because he is on probation and has his own apartment. PLAN Spoke to attending who will speak to patient before the procedure to try and assure her of her fears. Roz Aliya CHUCK SPLITTER,RECEIVER [phone] * Carolina Delvalle OT - 11/12/2021 1:00 PM EST Occupational Therapy Note Document Type: (P) contact Total Minutes, Occupational Therapy: (P) 0 Reason: OT order received, chart reviewed. Pt going for ICD placement this afternoon. OT will monitor and follow up as indicated/appropriate. Pager: [phone] Carolina Delvalle OT 11/12/2021 Occupational Therapy Rehabilitation Department * Magdi Dang - 11/12/2021 9:26 AM EST Inpatient EP Progress Note Patient Name: Aniya Lundy Responsible Attending: Neeraj Pompa MD Active Problems: Active Hospital Problems Diagnosis ??? Cardiac arrest ??? Cigarette smoker ??? Coronary artery vasospasm ??? *History of COVID-19 ??? Post-traumatic stress disorder, chronic ??? Borderline personality disorder ??? Anxiety disorder, unspecified The patient is a 34-year-old woman who presented with worsening anxiety surrounding nonspecific somatic complaints such as full body tingling. She has a number of existing medical issues such as HTN,asthma, and GERD, the symptoms of which (e.g. heartburn, cough) tend to provoke her anxiety. ??? Depression ??? Asthma Rx PRN albuterol Pulmonary workup negative 2007 (in [facility]) ??? Hypertension Onset 2013, variable BP highs of 160-170 systolic, then normal Resolved Hospital Problems No resolved problems to display. Interval History: No significant interval events. Telemetry reviewed and is unremarkable. Spoke with patient again this morning with Dr. Ricci. On our interview with her today she understands the basic risks and benefits of the procedure, although she remains with minor cognitive deficits(cannot recall current president but knows the year and her clinical context). She has spoken with her mother Shannon and her fiancee Bruce, and she is now amenable to having the procedure with general anesthesia. Consent form is now signed and dated for today on her chart. She may have a spot as second case in lab 4 today pending anesthesia availability. Review of Systems: No significant change from prior Meds: Scheduled Meds: ??? lisinopriL 20 mg Oral Daily ??? prazosin 2 mg Oral Nightly ??? clonazePAM 1 mg Oral BID ??? guaiFENesin ER 600 mg Oral 2 times per day ??? ceFEPime (Maxipime) 2g vial attach to sodium chloride 0.9% 100 mL Mini-Bag Plus 2 g [id number] ??? amLODIPine 10 mg Oral Daily ??? lidocaine 3 patch Transdermal Q24H And ??? lidocaine 3 patch Transdermal Q24H ??? atorvastatin 40 mg Oral QPM ??? famotidine 20 mg Oral BID ??? chlorhexidine 15 mL Oral BID ??? white petrolatum-mineral oiL 1 each Both Eyes BID ??? sodium chloride 0.9 % (flush) 5 mL Intravenous BID ??? white petrolatum-mineral oiL Topical (Top) Q8H SONALI Continuous Infusions: ??? lidocaine (pf) 15 mL/hr at 11/05/21 0500 ??? nitroGLYcerin Stopped (11/04/212115) ??? sodium chloride 0.9% Stopped (11/04/212199) PRN Meds:methyl salicylate-menthoL, hydrOXYzine, ondansetron, clonazePAM, acetaminophen, ibuprofen,senna, sodium chloride 0.9 % (flush), nitroGLYcerin, lidocaine (pf), nitroGLYcerin, sodium chloride0.9%, iohexoL Physical Exam: Vital Signs: Last value Range last 8 hrs Temperature Temp: 36.8 ??C (98.2 ??F) Temp: [36.8 ??C (98.2 ??F)] Heart Rate Heart Rate: 67 Heart Rate: [67-78] Blood Pressure BP: 140/70 BP: (127-140)/(70-77) Respiratory Rate Resp: 16 Resp: [16-17] SpO2 SpO2: 99 % SpO2: [98 %-99 %] General- No acute distress, laying comfortably in bed HEENT- Head atraumatic, normocephalic Skin- Warm and dry Neck- No JVD noted Cardiovascular- S1/S2 regular rate and rhythm. No murmur, rub or gallop Lungs- Clear to auscultation bilaterally, somewhat diminished at the bases Extremities- Pulses equal bilaterally. No edema noted. Neuro- A&Ox3, anxious appearing Lab Comments: Recent Labs 11/12/2144711/11/21 0442 11/09/21 0040 WBC 10.6* 11.5* 16.5* HGB 9.7* 10.5* 10.5* HCT 30.2* 32.0* 32.0* PLATELET 343 331 237 Recent Labs 11/06/21 0425 INR 1.1 Recent Labs 11/12/2144711/11/21 0442 11/09/21 0040 NA 140 141 138 K 3.5 3.4* 3.5 CL 105 104 103 CO2 23 21* 24 BUN 17 23* 22* CREATININE 0.87 0.92 0.84 Recent Labs 11/06/21 0425 AST 107* ALT 64* ALKPHOS 61 BILITOT 0.2 BILIDIR 0.2 Recent Labs 11/12/2144711/11/21 1841 11/11/21 0442 11/10/21 1807 11/09/21 1824 11/09/21 0040 CALCIUM 8.4* -- 8.5 -- -- 9.0 MAGNESIUM -- 0.83 0.93 0.83 < > 0.97 < > = values in this interval not displayed. No results for input(s): CK, TROPONINT in the last 168 hours. Pertinent Radiographic/Diagnostic Results: Chest PA/Lateral is clear Assessment: Aniya Lundy is a 36 y.o. female with no known history of CV illness who was admitted 11/04/2021 7:20 AM after suffering VF arrest in the field which occurred again after injection of her left main coronary artery and is thus presumed due to severe coronary vasospasm. She has completed screening for subcutaneous ICD and she and her family are now all in agreement with proceeding. There was concern for infection and she remains on Cefipime (day 6 of intended 7 day course) for empiric treatent of aspiration pneumonia. She has had down- trending fever curve and WBC count and has clear lungs on exam and chest radiograph. Her neurologic status is still not at presumed baseline, however, with collateral support from her family, we believe she is able to make this medical decision. Anesthesia support has been requested and is pending. Plan: 1. Subcutaneous ICD placement today if possible under [place] 2. Keep NPO for now Plan discussed with Dr. Ricci. Magdi Dang MD 11/12/2021 Associated attestation - Devin Ricci MD - 11/12/2021 1:22 PM EST Cardiac Electrophysiology Attending Addendum: The patient was seen, interviewed and examined by me, and Dr. Dang's note above was reviewed by me and agreed with. Specifically, the pertinent diagnoses (recurrent, malignant coronary vasospasm and s/p resuscitated VF cardiac arrest) and recommendations (initially by Dr. Jocelyn Denton, to undergo SQICD placement) were discussed with me. Patient passed T wave screening in 5 vectors (sitting/supine/standing/left and right lateral decubitus) on 11/11/21. Rationales for, intended benefits and potential risk of planned procedures reviewed. The patient indicated understanding and agreement with the plan. Patient spoke w/ her fiancee last night and mother today and wishes to proceed. (Both also strongly endorsed being protected by ICD). Patient though having some post-arrest cognitive (diana memory problems) is able to demonstrate understanding of her situation and render informed consent. Informed consent signed and dated and placed in the patient'spaper (hard) chart. She does have anesthesia related concerns which she will address w/ Anesthesia. Devin Ricci MD, PhD, [facility] Cardiac Electrophysiology * Shana Zurita MD - 11/12/2021 5:51 AM EST Images from the original note were not included. Cardiology Progress Note?? Patient info: Name: Aniya Lundy : 1985 PCP: Kenia Lawrence APRN PCP phone number: [phone] Date of Admission: 11/04/2021 ( Hospital Day 8 days ) Attending:Neeraj Pompa MD ID: Aniya Lundy is a 36 y.o. female with a history of tobacco use, hypertension on ZANE-I at home, anxiety, depression and recent COVID-19 infection (diagnosed 09/27/2021) who suffered an out of hospital VF arrest 11/04; with multiple subsequent VF arrests in CVCC and in cath labs on 11/04 found to have diffuse coronary and large vessel vasospasm, on hospital day 7. Chief Complaint Patient presents with ??? Cardiac Arrest 24 Hour Events/Subjective: Yesterday: -Still having reproducible chest pain (where had CPR +shocks). - Eager to advance to regular diet; pending STRIP CUTTING MACHINE OPERATOR eval. - EP plan for ICD under [place] - Social work/bit team following. - Gave tylenol + topical bengay cream for arm pain. Overnight: -- NAEO This AM: -Reports feeling OK today, had a lot of questions/concerns regarding ICD placement. Still feeling sore to palpation over chest where she had chest compressions/shocks. Feels like has some chest congestion but denies SOB. Arm pain still persistent but bengay helped; weakness is improving. Denies fevers, chills, chest pain, palpitations, LH/dizziness. Vasoactive & Sedating Medications: Infusions: Continuous Infusions: ??? lidocaine (pf) 15 mL/hr at 11/05/21 0500 ??? nitroGLYcerin Stopped (11/04/212115) ??? sodium chloride 0.9% Stopped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 phone number: [phone] Date of Admission: 11/04/2021 ( Hospital Day 7 days ) Attending:Neeraj Pompa MD ID: Aniya Lundy is a 36 y.o. female with a history of tobacco use, hypertension on ZANE-I at home, anxiety, depression and recent COVID-19 infection (diagnosed 09/27/2021) who suffered an out of hospital VF arrest 11/04; with multiple subsequent VF arrests in CVCC and in cath labs on 11/04 found to have diffuse coronary and large vessel vasospasm, on hospital day 7. Chief Complaint Patient presents with ??? Cardiac Arrest 24 Hour Events/Subjective: Yesterday: - Had pleurtic chest pain; reproducible - EKG was normal. - SW came to see her. - Refusing MRI for now. - Increased lisinopril. -- BIT team consulted Overnight: -- NAEO This AM: -Reports feeling a bit better today, more clear headed. Still endorses some bilateral upper arm pain/weakness and feeling sore to palpation over chest where she had chest compressions/shocks. Denies fevers, chills, chest pian, SOB, palpitations, LH/dizziness. Vasoactive & Sedating Medications: Infusions: Continuous Infusions: ??? lidocaine (pf) 15 mL/hr at 11/05/21 0500 ??? nitroGLYcerin Stopped (11/04/212115) ??? sodium chloride 0.9% Stopped (11/04/212199) Objective: Vitals Last value Range last 24 hrs Temperature Temp: 37 ??C (98.6 ??F) Temp: [36.7 ??C (98.1 ??F)-37 ??C (98.6 ??F)] Heart Rate Heart Rate: 89 Heart Rate: [89] Blood Pressure BP: 140/88 BP: (115-141)/(71-88) Art Line BP BP (Arterial Line): 75/64 BP (Arterial Line): -- MAP (NBP): [77 mmHg-99 mmHg] Respiratory Rate Resp: 20 Resp: [17-20] SpO2 SpO2: 99 % SpO2: [97 %-99 %] Oxygen Delivery Oxygen Therapy O2 Device: None (Room air) O2 Flow Rate (L/min): 5 L/min FiO2 (%): 100 % Intake/Output Summary (Last 24 hours) at 11/11/2021 1139 Last data filed at 11/11/2021 1002 Gross per 24 hour Intake 1440 ml Output 2175 ml Net -735 ml Patient Vitals for the past 168 hrs: Weight 11/11/21 0600 72.6 kg (160 lb 0.9 oz) 11/10/21 0531 74.7 kg (164 lb 10.9 oz) 11/09/21 0600 71.9 kg (158 lb 8.2 oz) 11/08/21 0400 81 kg (178 lb 9.2 oz) 11/07/21 0400 81 kg (178 lb 9.2 oz) Admit wt: 70 kg Physical Exam: Gen: Sitting up in bed, No acute distress. HEENT: PERRLA, EOMI, no icterus, MMM CV: Regular rate and rhythm. No murmurs appreciated. Pain with palpation of chest Pulm: Normal respiratory effort, coarse breathe sounds. Abd: Soft, non-tender, non-distended. No guarding or rebound. Ext: No pedal edema. No gross abnormalities. BLE arm pain. Neuro: Awake, alert. Moves extremities spontaneously. Cranially nerves grossly intact. 4/5 BUE weakness. Labs: Recent Labs 11/11/21 0442 11/09/21 0040 11/08/21 0430 11/07/21 0030 11/06/21 0425 WBC 11.5* 16.5* 18.3* 21.4* 17.0* HGB 10.5* 10.5* 8.6* 8.0* 9.2* HCT 32.0* 32.0* 27.3* 25.3* 28.5* PLATELET 331 237 154 132* 156 MCV 80.8* 80.6* 82.7 86.1 84.3 Recent Labs 11/11/21 0442 11/10/21 1807 11/10/21 1006 11/09/21 1824 11/09/21 0040 11/08/21 1905 11/08/21 0430 11/07/21 0800 11/07/21 0030 11/06/21 2030 11/06/21 0425 11/05/21 1406 11/05/21 0108 NA 141 -- -- -- 138 -- 141 -- 139 -- 138 < > 137 CL 104 -- -- -- 103 -- 108* -- 111* -- 108* < > 110* CO2 21* -- -- -- 24 -- 23 -- 18* -- 19* < > 19* K 3.4* -- -- -- 3.5 -- 4.0 -- 5.2* -- 4.5 < > 4.0 MAGNESIUM 0.93 0.83 0.82 0.98 0.97 < > 0.85 < > -- < > -- < > 0.80 PHOS -- -- -- -- -- -- -- -- -- -- -- -- 2.9 CALCIUM 8.5 -- -- -- 9.0 -- 8.3* -- 7.6* -- 7.8* < > 7.7* BUN 23* -- -- -- 22* -- 12 -- 14 -- 14 < > 17 CREATININE 0.92 -- -- -- 0.84 -- 1.00 -- 1.55* -- 1.34* < > 0.78 < > = values in this interval not displayed. LFTs Recent Labs 11/06/21 0425 PROT 5.3* ALBUMIN 3.3 AST 107* ALT 64* ALKPHOS 61 BILITOT 0.2 BILIDIR 0.2 Coags Recent Labs 11/06/21 0425 INR 1.1 PT 12.4 Cardiac Enzymes Recent Labs 11/05/21 0627 11/05/21 0108 11/04/21 1300 TROPONINT 0.06* 0.07* 0.24* Endocrine Recent Labs 04/23/21 1910 TSH 1.97 Recent Labs 11/04/21 1454 POCGLU 94 Heme No results for input(s): LDH, HAPTOGLOBIN, URICACID in the last 168 hours. ABG (Arterial Blood Gas) Recent Labs 11/07/21 0940 11/07/21 0630 11/07/21 0207 11/06/21 2044 11/06/21 1759 PHART 7.34* 7.23* 7.25* 7.24* 7.23* TXX2UHU 37 46* 40 42 43 PO2ART 88 90 117* 80* 71* UAU1AGL 19.2* 18.6* 17.0* 17.6* 17.6* LACTATEVEN 0.6 0.4* 0.5 0.9 1.7 NYD1ZDP 40 50 70 80 70 PFRATIOART2 220 180 167 100 101 VBG (Venous Blood Gas) Recent Labs 11/07/21 0940 11/07/21 0630 11/07/21 0207 11/06/21 2044 11/06/21 1759 LACTATEVEN 0.6 0.4* 0.5 0.9 1.7 Mixed Venous Sat No results for input(s): L9COEA7 in the last 168 hours. Microbiology: Microbiology Results (Last 30 days) Procedure Component Value Units Date/Time MRSA PCR [[id number]] Collected: 11/08/21 1010 Lab Status: Final result Specimen: Nasopharyngeal Swab Updated: 11/09/21 0806 MRSA Result Negative MRSA Interp -- Negative for methicillin-resistant Staphylococcus aureus (MRSA) This test was performed using the [employer] Dx System and the Xpert MRSA Assay. The MRSA target DNA was not detected. The sample processing control and probe check were valid. The performance of this test was determined by the [facility] Molecular Pathology Laboratory. It has been cleared by the U.S. Food and Drug Administration for clinical use. Comment: [VERIFIED DATE]11.09.21 Verified By:Dudley Cook (Electronic Signature) Blood culture [[id number]] Collected: 11/06/211999 Lab Status: Preliminary result Specimen: Blood from Hand, Left Updated: 11/10/21 2301 Blood Culture No growth at 4 days. Blood culture [[id number]] Collected: 11/06/21 1847 Lab Status: Preliminary result Specimen: Blood Updated: 11/10/21 2301 Blood Culture No growth at 4 days. Lower Respiratory Culture Tracheal Aspirate [[id number]] Collected: 11/06/21 1220 Lab Status: Final result Specimen: Tracheal Aspirate Updated: 11/09/21 1041 Lower Respiratory Culture Many mixed bacterial morphotypes suggestive of normal upper respiratory al Gram Stain -- Many Neutrophils seen Few squamous epithelial cells seen Many mixed bacterial morphotypes suggestive of normal upper respiratory la Blood culture [[id number]] Collected: 11/04/21 2250 Lab Status: Final result Specimen: Blood from Hand, Right Updated: 11/10/21 0701 Blood Culture No growth at 5 days. Blood culture [[id number]] Collected: 11/04/21 2215 Lab Status: Final result Specimen: Blood from Antecubital, Right Updated: 11/10/21 0701 Blood Culture No growth at 5 days. COVID-19 PCR [[id number]] Collected: 11/04/21 0735 Lab Status: Final result Specimen: Nasopharyngeal Swab Updated: 11/04/21 1246 SARS-CoV-2 RNA PCR Not Detected Comment: This result should be interpreted in combination with the clinical observations, patient history and epidemiological information. For testing of asymptomatic individuals, assay performance characteristics and clinical utility have not been evaluated. Testing for SARS-CoV-2 (Severe acute respiratory syndrome coronavirus 2, formerly known as 2019 novel coronavirus or 2019-nCoV) to aid in the diagnosis of COVID-19 is performed using the [employer] COVID-19 Direct Assay by [employer] as authorized by the FDA issued Emergency Use Authorization (EUA). This assay is intended for In-vitro Diagnostic (IVD) use with nasopharyngeal swabs collected from individuals meeting the CDC criteria for testing. The assay is performed based on the instructions for use and additional guidance provided by the FDA. Testing is performed in the Microbiology Laboratory within the Department of Pathology and Laboratory Medicine at [facility], certified under the Clinical Laboratory Improvement Amendments of 1988 (CLIA), 42 U.S.C. section 263a, to perform high complexity tests. Assay performance has been verified according to clinical laboratory regulatory requirements. Test results are provided above. A result of Not Detected indicates that [...] test are highly dependent on disease prevalence. A result of Invalid indicates the inability to conclusively determine the presence or absence of SARS-CoV-2 RNA in the sample which can be due to a variety of factors. Recollection is recommended in the case of an invalid result. CDC COVID-19 criteria for testing on human specimens and clinical management guidance information are available at the CDC Coronavirus Disease 2019 (COVID-19) webpage under Information for Healthcare Professionals (https://www.cdc.gov/coronavirus/2019-ncov/hcp/index.html). Additional information about this and other EUA tests can be found in provider and patient fact sheets at the following FDA website: https://www.fda.gov/medical-devices/nplgocicmey-qjiehku-6113-xkumk-12-ygcdhfqbw- gno-hspiclbzajfkqk-onlwhdl-devices/cmwcj-bznhefijylm-kifn SARS-CoV-2 Source [employer] Swab Imaging: Results for orders placed or performed during the hospital encounter of 11/04/21 XR Chest One View (Exam End: 11/04/2021 10:09 AM) Impression Endotracheal tube terminates over the mid trachea. Thank you for letting us participate in the care of this patient. If you are a health care provider and have any questions regarding this report, please contact the number below. For patients who have questions please contact the health home day care provider that requested your imaging first. Abdomen 1 view (Generic) (Exam End: 11/04/2021 10:09 AM) Impression Orogastric tube placement, as above. Thank you for letting us participate in the care of this patient. If you are a health care provider and have any questions regarding this report, please contact the number below. For patients who have questions please contact the health home day care provider that requested your imaging first. Head wo Contrast (Generic) (Exam End: 11/04/2021 9:37 AM) Impression Diffuse cerebral edema consistent with the history. I have personally reviewed the image(s) and the resident's interpretation and agree with the findings, Alejo Garcia MD at 11/04/2021 9:55 AM Thank you for letting us participate in the care of this patient. If you are a health care provider and have any questions regarding this report, please contact the number below. For patients who have questions please contact the health home day care provider that requested your imaging first. Angiogram Chest for Pulmonary Embolus w Contrast (Exam End: 11/04/2021 9:37 AM) Impression 1. No pulmonary embolism identified. 2. Bibasilar atelectasis, particularly on the left where there is collapse of much of the left lower lobe. 3. Hazy opacities within the inferior left upper lobe are nonspecific and may be infectious or traumatic in nature. 4. Motion artifact or nondisplaced fracture of the mid sternum. Motion artifact is favored. Recommend clinical correlation. Thank you for letting us participate in the care of this patient. If you are a health care provider and have any questions regarding this report, please contact the number below. For patients who have questions please contact the health home day care provider that requested your imaging first. Chest One View (Exam End: 11/04/2021 8:22 PM) Impression 1. Lines and tubes as above. 2. Small left pleural effusion and left basilar atelectasis, compatible with expected postprocedural changes. I have personally reviewed the image(s) and the resident's interpretation and agree with the findings, Jennifer Bassett MD at 11/04/2021 8:53 PM Thank you for letting us participate in the care of this patient. If you are a health care provider and have any questions regarding this report, please contact the number below. For patients who have questions please contact the health home day care provider that requested your imaging first. Chest One View (Exam End: 11/05/2021 8:40 AM) Impression 1. Intra-aortic balloon pump marker is 1.8 cm below the aortic knob. 2. Slightly improved left basilar atelectasis and resolved left pleural effusion. I have personally reviewed the image(s) and the resident's interpretation and agree with the findings, Danielle Rausch MD at 11/05/2021 9:48 AM Thank you for letting us participate in the care of this patient. If you are a health care provider and have any questions regarding this report, please contact the number below. For patients who have questions please contact the health home day care provider that requested your imaging first. Chest One View (Exam End: 11/06/2021 6:36 AM) Impression * Equipment as above. * Mild pulmonary vascular congestion. Thank you for letting us participate in the care of this patient. If you are a health care provider and have any questions regarding this report, please contact the number below. For patients who have questions please contact the health home day care provider that requested your imaging first. Electronically signed by: Kimberley Pichardo MD, [facility] ([phone]), at 11/06/2021 6:47 AM XR Chest One View (Exam End: 11/06/2021 6:39 PM) Impression 1. New indistinct opacities in the left lower lung may represent combination collapse/consolidation left lower lobe with overlying small left pleural effusion. 2. Mild pulmonary vascular congestion, stable. 3. Support equipment as above. I have personally reviewed the image(s) and the resident's interpretation and agree with the findings, Danielle Rausch MD at 11/07/2021 9:56 AM Thank you for letting us participate in the care of this patient. If you are a health care provider and have any questions regarding this report, please contact the number below. For patients who have questions please contact the health home day care provider that requested your imaging first. Chest One View (Exam End: 11/07/2021 9:16 AM) Impression 1. Tubes and lines with expected position. 2. Persistent atelectasis/airspace consolidation at the left medial base unchanged from prior. Significant improvement in inflation of the right lower lobe. 3. Decreased central pulmonary vascular congestion and interstitial edema. Thank you for letting us participate in the care of this patient. If you are a health care provider and have any questions regarding this report, please contact the number below. For patients who have questions please contact the health home day care provider that requested your imaging first. Abdomen 1 view (Generic) (Exam End: 11/07/2021 11:25 AM) Impression The distal tip of the nasogastric tube projects in the region of the antrum of the stomach. Thank you for letting us participate in the care of this patient. If you are a health care provider and have any questions regarding this report, please contact the number below. For patients who have questions please contact the health home day care provider that requested your imaging first. Medications Scheduled Meds: ??? lisinopriL 20 mg Oral Daily ??? prazosin 2 mg Oral Nightly ??? clonazePAM 1 mg Oral BID ??? guaiFENesin ER 600 mg Oral 2 times per day ??? ceFEPime (Maxipime) 2g vial attach to sodium chloride 0.9% 100 mL Mini-Bag Plus 2 g [id number] ??? amLODIPine 10 mg Oral Daily ??? enoxaparin 40 mg Subcutaneous Nightly ??? lidocaine 3 patch Transdermal Q24H And ??? lidocaine 3 patch Transdermal Q24H ??? atorvastatin 40 mg Oral QPM ??? famotidine 20 mg Oral BID ??? chlorhexidine 15 mL Oral BID ??? white petrolatum-mineral oiL 1 each Both Eyes BID ??? sodium chloride 0.9 % (flush) 5 mL Intravenous BID ??? white petrolatum-mineral oiL Topical (Top) Q8H SONALI Continuous Infusions: ??? lidocaine (pf) 15 mL/hr at 11/05/21 0500 ??? nitroGLYcerin Stopped (11/04/212115) ??? sodium chloride 0.9% Stopped (11/04/212199) PRN Meds:.clonazePAM, acetaminophen, ibuprofen, senna, sodium chloride 0.9 % (flush), nitroGLYcerin, lidocaine (pf), nitroGLYcerin, sodium chloride 0.9%, iohexoL Assessment & Plan: Aniya Lundy is a 36 y.o. female with a history of tobacco use, hypertension on ZANE-I at home, anxiety, depression and recent COVID-19 infection (diagnosed 09/27/2021) who suffered an out of hospital VF arrest 11/04; with multiple subsequent VF arrests in CVCC and in cath labs on 11/04 found to have diffuse coronary and large vessel vasospasm. Aniya is doing well overall. She has continued on a calcium channel nash for vasospasms without any new issues including ventricular arrhythmias/new chest pain. She passed her swallow study yesterday and we will continue advancing her diet as tolerated. She will need continued PT/OT while she is in the hospital. BIT team and SW has been consulted for hx of depression, anxiety, SI and possible issues with her current living situation. After discussion with EP will likely place ICD on Friday. ?? # Vasospasm # Cardiac Arrest #HTN - s/p nicardipine - s/p amio and lidocaine - s/p pressors - continue amlopidine 10mg. - Continue lisinopril 20mg qd - Atorvastatin 40 mg daily (possible benefit to vasospasm) - d/c lidocaine - d/c amio - EP will place ICD likely on Friday ?? # b/l UE pain and weakness - PT/OT - MRI/MRA of brain and MRI of cervical spine after weekend under sedation # JENNIFER - resolved - Good UOP. - Will diurese if needed. ?? #Anemia - Monitor hemoglobin #concern for aspiration pna #fever - Continue cefepime 1g QD for 7 days of empiric treatment - s/p metronidazole (anerobic coverage) - s/p Vanc - tylenol prn for fever - Trend WBC ?? # Bipolar # Anxiey - klonopin 1mg BID - prazosin 2mg qhs - BIT team consulted - SW consulted ?? #Routine Diet: Puree diet DVT Prophylaxis: sub q lovenox GI Prophylaxis: famotidine Code Status: Attempt Cardiopulmonary Resuscitation - Inpatient Dispo: Pending clinical course Shana Zurita MD Internal Medicine, PGY1 Cardiology, M1-S1, #[id number] 11/11/21 11:39 AM Associated attestation - Neeraj Pompa MD - 11/11/2021 2:12 PM EST Cardiology Attending Addendum Active Hospital Problems Diagnosis Cardiac arrest Coronary artery vasospasm *History of COVID-19 Cigarette smoker Post-traumatic stress disorder, chronic Borderline personality disorder Anxiety disorder, unspecified Depression Asthma Hypertension Resolved Hospital Problems No resolved problems to display. I have interviewed and examined the patient, reviewed the available data, and have discussed my findings, assessment and plan with the patient and the team on rounds today. I agree with Dr. Zurita's note as below which reflects our discussion. * Yasemin Abdalla RN - 11/10/2021 7:01 PM EST Pt's VSS throughout shift, pt was able to ring appropriately when she needed to use commode.Pt was able to sit up in chair for most of shift. oncology social worker met with pt at bedside, pt was having muscular like pain in her chest, pt was given tylenol and Ibuprofen when appropriate, pain was manageableper patient * Rani Ayers MSW - 11/10/2021 2:02 PM EST Office Of Care Management Weekend Supervisory Clerk Social Work HAROON Christie SW met with patient, Aniya, to assess coping and psychosocial needs. Aniya had difficulties actively participating in the conversation due to her level of pain. She was able to share that she lives in a subsidized apartment in [place], [place]. She receives social security disability income, and has for many years. She has a valid drivers license and a car. She shares that she struggles financially, After paying her subsidized rent, car insurance, and car payment, she only has $30 left at the end of the month. She does receive [address] [place] [address] food stamp benefits and has no concerns for food insecurity. She states that her fiancee Bruce is her strongest support and she feels safe within this relati onship. He does not live in her home, but spends significant time there. When asked why they choosenot to live together, Aniya shared that Bruce is on probation and therefore must continue to reside at the address he was released to. Aniya noted that her family members are supportive of her, but not of her relationship with Bruce. She did not disclose any additional comments on this subject. It is clear to this SW that Aniya's level of pain was interfering with her ability to participatein the interview. Her living situation and safety should be reassessed again prior to discharge. Pager: [phone] * Prashant Johnson W - 11/10/2021 6:02 AM EST Images from the original note were not included. Cardiology ICU Progress Note?? Patient info: Name: Aniya Lundy : 1985 PCP: Kenia [place] APRN PCP phone number: [phone] Date of Admission: 11/04/2021 ( Hospital Day 6 days ) Attending:Neeraj Pompa MD ID: Aniya Lundy is a 36 y.o. female with a history of tobacco use, hypertension on ZANE-I at home, anxiety, depression and recent COVID-19 infection (diagnosed 09/27/2021) who suffered an out of hospital VF arrest 11/04; with multiple subsequent VF arrests in CVCC and in cath labs on 11/04 found to have diffuse coronary and large vessel vasospasm, on hospital day 5. Chief Complaint Patient presents with ??? Cardiac Arrest 24 Hour Events/Subjective: Yesterday: -- refused MRI -- passed swallow study and put on diet -- psych cleared sitter -- BIT team consulted Overnight: -- NAEO This AM: - New chest pain this morning with only cough and deep breaths. This started after calling boyfriend. Described as sharp pain. Still endorses some bilateral upper arm pain/weakness. Denies fevers, chills, SOB, palpitations, LH/dizziness. Still no BM. Vasoactive & Sedating Medications: Infusions: Continuous Infusions: ??? lidocaine (pf) 15 mL/hr at 11/05/21 0500 ??? nitroGLYcerin Stopped (11/04/212115) ??? sodium chloride 0.9% Stopped (11/04/212199) Objective: Vitals Last value Range last 24 hrs Temperature Temp: 36.5 ??C (97.7 ??F) Temp: [36.5 ??C (97.7 ??F)-37.4 ??C (99.3 ??F)] Heart Rate Heart Rate: 100 Heart Rate: [99-105] Blood Pressure BP: 140/85 BP: (140-176)/(75-99) Art Line BP BP (Arterial Line): 75/64 BP (Arterial Line): -- MAP (NBP): [93 mmHg-114 mmHg] Respiratory Rate Resp: 22 Resp: [20-24] SpO2 SpO2: 97 % SpO2: [96 %-100 %] Oxygen Delivery Oxygen Therapy O2 Device: None (Room air) O2 Flow Rate (L/min): 5 L/min FiO2 (%): 100 % Intake/Output Summary (Last 24 hours) at 11/10/2021 1110 Last data filed at 11/10/2021 0700 Gross per 24 hour Intake 462 ml Output 1925 ml Net -1463 ml Patient Vitals for the past 168 hrs: Weight 11/10/21 0531 74.7 kg (164 lb 10.9 oz) 11/09/21 0600 71.9 kg (158 lb 8.2 oz) 11/08/21 0400 81 kg (178 lb 9.2 oz) 11/07/21 0400 81 kg (178 lb 9.2 oz) 11/04/21 0723 70 kg (154 lb 5.2 oz) Admit wt: 70 kg Physical Exam: Gen: appearing uncomfortable today, HEENT: PERRLA, EOMI, no icterus, MMM CV: Regular rate and rhythm. No murmurs appreciated. Pain with palpation of chest Pulm: Normal respiratory effort, coarse breathe sounds. Abd: Soft, non-tender, non-distended. No guarding or rebound. Ext: No pedal edema. No gross abnormalities. BLE arm pain. Neuro: Awake, alert. Moves extremities spontaneously. Cranially nerves grossly intact. 4/5 BUE weakness. Labs: Recent Labs 11/09/21 0040 11/08/21 0430 11/07/21 0030 11/06/21 0425 11/05/21 0108 WBC 16.5* 18.3* 21.4* 17.0* 11.8* HGB 10.5* 8.6* 8.0* 9.2* 9.7* HCT 32.0* 27.3* 25.3* 28.5* 30.9* PLATELET 237 154 132* 156 185 MCV 80.6* 82.7 86.1 84.3 82.8 Recent Labs 11/09/21 1824 11/09/21 0040 11/08/21 1905 11/08/21 0430 11/07/21 0800 11/07/21 0030 11/06/21 2030 11/06/21 0425 11/05/21 1406 11/05/21 0108 11/04/21 0735 NA -- 138 -- 141 -- 139 -- 138 137 137 140 CL -- 103 -- 108* -- 111* -- 108* 108* 110* 104 CO2 -- 24 -- 23 -- 18* -- 19* 19* 19* 19* K -- 3.5 -- 4.0 -- 5.2* -- 4.5 4.3 4.0 5.1* MAGNESIUM 0.98 0.97 0.92 0.85 0.86 -- < > -- 0.99 0.80 1.04 PHOS -- -- -- -- -- -- -- -- -- 2.9 6.2* CALCIUM -- 9.0 -- 8.3* -- 7.6* -- 7.8* 7.7* 7.7* 9.4 BUN -- 22* -- 12 -- 14 -- 14 15 17 20* CREATININE -- 0.84 -- 1.00 -- 1.55* -- 1.34* 1.17 0.78 1.55* < > = values in this interval not displayed. LFTs Recent Labs 11/06/2142411/04/21 0735 PROT 5.3* 6.8 ALBUMIN 3.3 4.4 AST 107* 72* ALT 64* 79* ALKPHOS 61 88 BILITOT 0.2 0.2 BILIDIR 0.2 -- Coags Recent Labs 11/06/2142411/04/21 0735 INR 1.1 -- PT 12.4 -- DDIMER -- 5,001* Cardiac Enzymes Recent Labs 11/05/21 0627 11/05/21 0108 11/04/21 1300 11/04/21 0735 CK -- -- -- 135 TROPONINT 0.06* 0.07* 0.24* 0.02* Endocrine Recent Labs 04/23/21 1910 TSH 1.97 Recent Labs 11/04/21 1454 POCGLU 94 Heme No results for input(s): LDH, HAPTOGLOBIN, URICACID in the last 168 hours. ABG (Arterial Blood Gas) Recent Labs 11/07/21 0940 11/07/21 0630 11/07/21 0207 11/06/214 11/06/21 1759 PHART 7.34* 7.23* 7.25* 7.24* 7.23* [id number] 37 46* 40 42 43 PO2ART 88 90 117* 80* 71* [id number] 19.2* 18.6* 17.0* 17.6* 17.6* LACTATEVEN 0.6 0.4* 0.5 0.9 1.7 VMA9OTL 40 50 70 80 70 PFRATIOART2 220 180 167 100 101 VBG (Venous Blood Gas) Recent Labs 11/07/21 0940 11/07/21 0630 11/07/21 0207 11/06/21204311/06/21 1759 11/04/21 0843 11/04/21 0733 PHVEN -- -- -- -- -- -- 7.09* ZXR7HXH -- -- -- -- -- -- 66* PO2VEN -- -- -- -- -- -- 31 KEZ7OSG -- -- -- -- -- -- 19.7 LACTATEVEN 0.6 0.4* 0.5 0.9 1.7 < > 6.5* < > = values in this interval not displayed. Mixed Venous Sat No results for input(s): Q3OADV5 in the last 168 hours. Microbiology: Microbiology Results (Last 30 days) Procedure Component Value Units Date/Time MRSA PCR [[id number]] Collected: 11/08/21 1010 Lab Status: Final result Specimen: Nasopharyngeal Swab Updated: 11/09/21 08 MRSA Result Negative MRSA Interp -- Negative for methicillin-resistant Staphylococcus aureus (MRSA) This test was performed using the GeneXpert?? Dx System and the Xpert MRSA Assay. The MRSA target DNA was not detected. The sample processing control and probe check were valid. The performance of this test was determined by the [facility] Molecular Pathology Laboratory. It has been cleared by the U.S. Food and Drug Administration for clinical use. Comment: [VERIFIED DATE]11.09.21 Verified By:Dudley Cook (Electronic Signature) Blood culture [[id number]] Collected: 11/06/211999 Lab Status: Preliminary result Specimen: Blood from Hand, Left Updated: 11/09/21 2301 Blood Culture No growth at 3 days. Blood culture [[id number]] Collected: 11/06/21 1847 Lab Status: Preliminary result Specimen: Blood Updated: 11/09/21 2301 Blood Culture No growth at 3 days. Lower Respiratory Culture Tracheal Aspirate [[id number]] Collected: 11/06/21 1220 Lab Status: Final result Specimen: Tracheal Aspirate Updated: 11/09/21 1041 Lower Respiratory Culture Many mixed bacterial morphotypes suggestive of normal upper respiratory al Gram Stain -- Many Neutrophils seen Few squamous epithelial cells seen Many mixed bacterial morphotypes suggestive of normal upper respiratory al Blood culture [[id number]] Collected: 11/04/21 2250 Lab Status: Final result Specimen: Blood from Hand, Right Updated: 11/10/21 0701 Blood Culture No growth at 5 days. Blood culture [[id number]] Collected: 11/04/21 2215 Lab Status: Final result Specimen: Blood from Antecubital, Right Updated: 11/10/21 0701 Blood Culture No growth at 5 days. COVID-19 PCR [[id number]] Collected: 11/04/21 0735 Lab Status: Final result Specimen: Nasopharyngeal Swab Updated: 11/04/21 1246 SARS-CoV-2 RNA PCR Not Detected Comment: This result should be interpreted in combination with the clinical observations, patient history and epidemiological information. For testing of asymptomatic individuals, assay performance characteristics and clinical utility have not been evaluated. Testing for SARS-CoV-2 (Severe acute respiratory syndrome coronavirus 2, formerly known as 2019 novel coronavirus or 2019-nCoV) to aid in the diagnosis of COVID-19 is performed using the Simplexa COVID-19 Direct Assay by [employer] as authorized by the FDA issued Emergency Use Authorization (EUA). This assay is intended for In-vitro Diagnostic (IVD) use with nasopharyngeal swabs collected from individuals meeting the CDC criteria for testing. The assay is performed based on the instructions for use and additional guidance provided by the FDA. Testing is performed in the Microbiology Laboratory within the Department of Pathology and Laboratory Medicine at [facility], certified under the Clinical Laboratory Improvement Amendments of 1988 (CLIA), 42 U.S.C. section 263a, to perform high complexity tests. Assay performance has been verified according to clinical laboratory regulatory requirements. Test results are provided above. A result of Not Detected indicates that [...] test are highly dependent on disease prevalence. A result of Invalid indicates the inability to conclusively determine the presence or absence of SARS-CoV-2 RNA in the sample which can be due to a variety of factors. Recollection is recommended in the case of an invalid result. CDC COVID-19 criteria for testing on human specimens and clinical management guidance information are available at the CDC Coronavirus Disease 2019 (COVID-19) webpage under Information for Healthcare Professionals (https://www.cdc.gov/coronavirus/2019-ncov/hcp/index.html). Additional information about this and other EUA tests can be found in provider and patient fact sheets at the following FDA website: https://www.fda.gov/medical-devices/spiusjepwkm-clbppeu-5653-naawc-26-wjcsedkbn- rmj-nqrcesklpelgvu-aaoshsc-devices/yiehc-fevzknmfeur-wexw SARS-CoV-2 Source [employer] Swab Imaging: Results for orders placed or performed during the hospital encounter of 11/04/21 XR Chest One View (Exam End: 11/04/2021 10:09 AM) Impression Endotracheal tube terminates over the mid trachea. Thank you for letting us participate in the care of this patient. If you are a health care provider and have any questions regarding this report, please contact the number below. For patients who have questions please contact the health home day care provider that requested your imaging first. Abdomen 1 view (Generic) (Exam End: 11/04/2021 10:09 AM) Impression Orogastric tube placement, as above. Thank you for letting us participate in the care of this patient. If you are a health care provider and have any questions regarding this report, please contact the number below. For patients who have questions please contact the health home day care provider that requested your imaging first. Head wo Contrast (Generic) (Exam End: 11/04/2021 9:37 AM) Impression Diffuse cerebral edema consistent with the history. I have personally reviewed the image(s) and the resident's interpretation and agree with the findings, Alejo Garcia MD at 11/04/2021 9:55 AM Thank you for letting us participate in the care of this patient. If you are a health care provider and have any questions regarding this report, please contact the number below. For patients who have questions please contact the health home day care provider that requested your imaging first. Angiogram Chest for Pulmonary Embolus w Contrast (Exam End: 11/04/2021 9:37 AM) Impression 1. No pulmonary embolism identified. 2. Bibasilar atelectasis, particularly on the left where there is collapse of much of the left lower lobe. 3. Hazy opacities within the inferior left upper lobe are nonspecific and may be infectious or traumatic in nature. 4. Motion artifact or nondisplaced fracture of the mid sternum. Motion artifact is favored. Recommend clinical correlation. Thank you for letting us participate in the care of this patient. If you are a health care provider and have any questions regarding this report, please contact the number below. For patients who have questions please contact the health home day care provider that requested your imaging first. Chest One View (Exam End: 11/04/2021 8:22 PM) Impression 1. Lines and tubes as above. 2. Small left pleural effusion and left basilar atelectasis, compatible with expected postprocedural changes. I have personally reviewed the image(s) and the resident's interpretation and agree with the findings, Jennifer Bassett MD at 11/04/2021 8:53 PM Thank you for letting us participate in the care of this patient. If you are a health care provider and have any questions regarding this report, please contact the number below. For patients who have questions please contact the health home day care provider that requested your imaging first. Chest One View (Exam End: 11/05/2021 8:40 AM) Impression 1. Intra-aortic balloon pump marker is 1.8 cm below the aortic knob. 2. Slightly improved left basilar atelectasis and resolved left pleural effusion. I have personally reviewed the image(s) and the resident's interpretation and agree with the findings, Danielle Rausch MD at 11/05/2021 9:48 AM Thank you for letting us participate in the care of this patient. If you are a health care provider and have any questions regarding this report, please contact the number below. For patients who have questions please contact the health home day care provider that requested your imaging first. Chest One View (Exam End: 11/06/2021 6:36 AM) Impression * Equipment as above. * Mild pulmonary vascular congestion. Thank you for letting us participate in the care of this patient. If you are a health care provider and have any questions regarding this report, please contact the number below. For patients who have questions please contact the health home day care provider that requested your imaging first. Electronically signed by: Kimberley Pichadro MD, [facility] ([phone]), at 11/06/2021 6:47 AM XR Chest One View (Exam End: 11/06/2021 6:39 PM) Impression 1. New indistinct opacities in the left lower lung may represent combination collapse/consolidation left lower lobe with overlying small left pleural effusion. 2. Mild pulmonary vascular congestion, stable. 3. Support equipment as above. I have personally reviewed the image(s) and the resident's interpretation and agree with the findings, Danielle Rausch MD at 11/07/2021 9:56 AM Thank you for letting us participate in the care of this patient. If you are a health care provider and have any questions regarding this report, please contact the number below. For patients who have questions please contact the health home day care provider that requested your imaging first. Chest One View (Exam End: 11/07/2021 9:16 AM) Impression 1. Tubes and lines with expected position. 2. Persistent atelectasis/airspace consolidation at the left medial base unchanged from prior. Significant improvement in inflation of the right lower lobe. 3. Decreased central pulmonary vascular congestion and interstitial edema. Thank you for letting us participate in the care of this patient. If you are a health care provider and have any questions regarding this report, please contact the number below. For patients who have questions please contact the health home day care provider that requested your imaging first. Abdomen 1 view (Generic) (Exam End: 11/07/2021 11:25 AM) Impression The distal tip of the nasogastric tube projects in the region of the antrum of the stomach. Thank you for letting us participate in the care of this patient. If you are a health care provider and have any questions regarding this report, please contact the number below. For patients who have questions please contact the health home day care provider that requested your imaging first. Medications Scheduled Meds: ??? lisinopriL 20 mg Oral Daily ??? prazosin 2 mg Oral Nightly ??? clonazePAM 1 mg Oral BID ??? guaiFENesin ER 600 mg Oral 2 times per day ??? ceFEPime (Maxipime) 2g vial attach to sodium chloride 0.9% 100 mL Mini-Bag Plus 2 g [id number] ??? amLODIPine 10 mg Oral Daily ??? enoxaparin 40 mg Subcutaneous Nightly ??? lidocaine 3 patch Transdermal Q24H And ??? lidocaine 3 patch Transdermal Q24H ??? atorvastatin 40 mg Oral QPM ??? famotidine 20 mg Oral BID ??? chlorhexidine 15 mL Oral BID ??? white petrolatum-mineral oiL 1 each Both Eyes BID ??? sodium chloride 0.9 % (flush) 5 mL Intravenous BID ??? white petrolatum-mineral oiL Topical (Top) Q8H SONALI Continuous Infusions: ??? lidocaine (pf) 15 mL/hr at 11/05/21 0500 ??? nitroGLYcerin Stopped (11/04/212115) ??? sodium chloride 0.9% Stopped (11/04/212199) PRN Meds:.clonazePAM, acetaminophen, ibuprofen, senna, sodium chloride 0.9 % (flush), nitroGLYcerin, lidocaine (pf), nitroGLYcerin, sodium chloride 0.9%, iohexoL Assessment & Plan: Aniya Lundy is a 36 y.o. female with a history of tobacco use, hypertension on ZANE-I at home, anxiety, depression and recent COVID-19 infection (diagnosed 09/27/2021) who suffered an out of hospital VF arrest 11/04; with multiple subsequent VF arrests in CVCC and in cath labs on 11/04 found to have diffuse coronary and large vessel vasospasm. Aniya is doing well overall. She has continued on a calcium channel nash for vasospasms without any new issues including ventricular arrhythmias/new chest pain. She passed her swallow study yesterday and we will continue advancing her diet. She will need continued PT/OT while she is in the hospital. BIT team and SW has been consulted for hx of depression, anxiety, SI and possible issues withher current living situation. Ultimately we will need to get her set up with an ICD for out of hospital cardiac arrest. ?? # Vasospasm # Cardiac Arrest #HTN - s/p nicardipine - s/p amio and lidocaine - s/p pressors - continue amlopidine 10mg. - Increase lisinopril 20mg qd - Atorvastatin 40 mg daily (possible benefit to vasospasm) - d/c lidocaine - d/c amio - Will put on EPs radar for ICD. ?? # b/l UE pain and weakness - PT/OT - MRI/MRA of brain and MRI of cervical spine after weekend under sedation # JENNIFER - resolved - Good UOP. - Will diurese if needed. ?? #Anemia - Monitor hemoglobin #concern for aspiration pna #fever - Continue cefepime 1g QD for 7 days of empiric treatment - s/p metronidazole (anerobic coverage) - s/p Vanc - tylenol prn for fever - Trend WBC ?? # Bipolar # Anxiey - klonopin 1mg BID - prazosin 2mg qhs - BIT team consulted - SW consulted ?? #Routine Diet: Puree diet DVT Prophylaxis: sub q lovenox GI Prophylaxis: famotidine Code Status: Attempt Cardiopulmonary Resuscitation - Inpatient Dispo: Pending clinical course Prashant Johnson MD Internal Medicine, PGY2 Cardiology, M1-S1, #[id number] 11/10/21 11:10 AM Associated attestation - Neeraj Pompa MD - 11/10/2021 9:35 PM EST Cardiology Attending Addendum Active Hospital Problems Diagnosis Coronary artery vasospasm *History of COVID-19 Cardiac arrest Post-traumatic stress disorder, chronic Borderline personality disorder Anxiety disorder, unspecified Depression Asthma Hypertension Resolved Hospital Problems No resolved problems to display. I have interviewed and examined the patient, reviewed the available data, and have discussed my findings, assessment and plan with the patient and the team on rounds today. I agree with Dr. Johnson' note as below which reflects our discussion. * Kim Paul RN - 11/10/2021 4:04 AM EST OUTCOME EVALUATION NOTE: OUTCOME SUMMARY: Pt anxious/restless at start of shift. MD notified. Additional dose of Klonopin 1mg ordered after nightly scheduled dose, pt responds well. Tele: Normal sinus rhythm with intervals of Sinus tachycardia. No other significant events to report. PLAN MOVING FORWARD: Remove yang. MRI of head. Possible ICD. INDIVIDUALIZED FALL PREVENTION INTERVENTIONS: Patient-specific fall risk factors per assessment: [current deficits]: Hx of fall, mildly impaired/gen weakness. Assistance [level of assistance required for transfers and ambulation]: Bed, Turns self Supervision [direct monitoring required during toileting and ADLs]: Full care. Surveillance [continuous indirect monitoring]: Tele Patient-specific fall prevention interventions for sensory deficits provided, if applicable: [X] Yes CPG GOAL OUTCOME EVALUATION: ongoing * Yasemin Abdalla RN - 11/09/2021 3:44 PM EST Pt arrived to the unit from MICU,pt initiated on telemetry, VSS. Sitter at bedside * Alissa Torres MSW - 11/09/2021 3:24 PM EST Office of Care Management Social Work Note Patient: Aniya Lundy Relevant Information: Attempted to see patient to connect with community resources. However, patient was in process of transferring to another floor. Gave resources to SWAMPER, who said he would share them with the patient. Plan: Will add patient to weekend list for monitoring with social dynamics. CHUCK SPLITTER will continue to follow as needs are identified. HAROON [facility] CHUCK SPLITTER Office of Care Management Pager: [phone] * Priscila Garcia, PT - 11/09/2021 3:20 PM EST Physical Therapy Evaluation Patient profile: Aniya Lundy is a 36 y.o. right-handed female admitted on 11/04/[address] Valorie Obrien MD with a history of??tobacco use, hypertension on ZANE-I at home, anxiety,??depression, bipolar disorder, suicidal ideation and recent COVID-19 infection (diagnosed 09/27/2021)??who suffered an out of hospital VF arrest 11/04; with multiple subsequent VF arrests in CVCC and in cath labs on 11/04 found to have diffuse coronary and large vessel vasospasm. She was intubated on admission, was followed by neurology for EEG monitoring with concern for seizures, and was extubated on 11/07. Neurology recommends obtaining MRI brain and MRA head to look for evidence of vasospasm and evidence of infarct that might suggest prior vasospasm. Psychiatry has been consulted due to patient's verbalization of not wanting to live like this to RN and with prior SI history and psych admits. Patient with the following active problems: Past Medical History: Diagnosis Date ??? *History [...] ENDOSCOPY performed by Dudley Alva MD at [facility] ENDOSCOPY Active Non-Hospital Problems Diagnosis ??? Gastroesophageal reflux disease ??? Chest pain ??? Skin disease ??? Anxiety ??? Tachycardia Social History: lives in [place], [place] and her boyfriend, Dk, occasionally stays with her; works at [employer] in [place], [place]; per chart, she has 3 children, all of whom live with family members outside of her home Home set-up: 2-level apartment Bathroom Set-up: TBD Stairs: flight to bathroom and bedroom on 2nd floor Baseline Mobility: independent Equipment at home: none Fall history: patient denies Precautions/Special Considerations: fall risk; cardiac: recent VF arrests; 1:1 sitter Lines: bilateral cubital PIV's; yang Activity Orders: none in chart Diet: puree, thin liquids Mobility and Positioning Recommendations: ?? Place in bed-chair position intermittently during the day ?? Mechanical lift bed to chair daily and encourage upright sitting for all meals ?? Engage in ADL's as able Subjective: ???[place]. 2020.?? I don't know why I'm here. Objective: Pt seen for evaluation today. Pain: c/o in bilateral elbows with flexion and in L wrist with flexion stretch; wincing with overhead shoulder flexion stretch Vital Signs: At Rest With Activity SpO2 (RA) 100% 100% BP (MAP) 157/97mmHg 153/86 mmHg in bed-chair HR 100's bpm 100's bpm Mental Status: slightly drowsy but arousable and able to engage in conversation; following simple commands but with delay in processing and repetition of command at times; oriented to person, place, month, not year (thought it was 2020) and not to reason for admit Vision: WFL Skin: intact as observed; multiple tattoos Musculoskeletal: ROM: WFL but with some discomfort with UE flexion stretch at shoulder, elbows and wrists Strength: shoulder elevation 3, shoulder flexion 2-, elbow flexion 3-, elbow extension 3-, wrist flexion and extension 3, hand roll icer 3, hip flexion 2-, hip extension 2+, knee extension 3+, dorsiflexion 3, plantarflexion 3+ Sensation: intact light touch Bed Mobility: Supine to Sit: progressed to full upright sit using bed-chair option Sit to Supine: used bed options Scoot to HOB: dependent in full supine and trendelenburg Transfers: Sit to Stand: n/a Stand to Sit: n/a Bed to Chair: would require overhead lift; deferred today as she was [facility] Balance: Sitting Static: poor; required moderate assist to maintain forward sit in bed- chair position; fluctuating head control but able to hold upright in neutral, unsupported for several seconds Sitting Dynamic: poor; maximal assist for trunk repositioning and weight shift laterally in supported sit Standing Static: n/a Standing Dynamic / Gait: n/a Therex: provided P/AAROM to neck, UE's and LE's for all main motions Education: Patient has been educated on Positioning, Role of therapy and orientation and reason foradmit and needs reinforcement. Patient status, treatment, and mobility recommendations discussed with nursing. Assessment: Aniya Lundy was seen today for physical therapy evaluation. Patient presents with impairments in the following: cognition/mental status, ROM, strength, functional mobility, balance, and gait. She was drowsy but arousable and following most simple commands. Demonstrated UE more thanLE weakness, particularly proximally, and with pain in shoulders, elbows, and wrists during AAROM. Vitals stable during progression to upright sitting using bed-chair mode. Will need closely monitored progression of mobility given her recent VF arrests and diffuse coronary and large vessel vasospasm, as well as ongoing work-up. The pt would benefit from skilled therapy services while in the hospital to maximize functional abilities. Discharge Recommendations: Based on the current findings, Anticipated Discharge Disposition (PT): acute rehabilitation facility when medically ready for hospital discharge. Consult Recommendations: No other consults recommended at this time. Equipment needs: Anticipated Equipment Needs at Discharge (PT): to be determined Goals: To be achieved by 12/09/20: 1. Pt. to demonstrate knowledge of safety limitations and precautions and will appropriately request assistance for functional activities and to mobilize. 2. Pt. to demonstrate understanding of appropriate exercises. 3. Pt. to perform bed mobility with CGA. 4. Pt. to perform sit to stand transfers with CGA using a device as needed. 5. Pt. to ambulate 150 feet with CGA using a device as needed. 6. Pt will tolerate progression towards upright with stable vital signs. Plan: Therapy Frequency (PT): 2-4 times/wk for therapy including balance training, bed mobility training, gait training, patient/family education, range of motion, strengthening and transfer training. Patient/family understand and agree with plan as stated above. 2017 PT Evaluation Code Rationale: ?? Diagnosis & Pertinent Co-Morbidities, personal factors, and present illness affecting Plan of Care: (see above); Additional personal factors or co- morbidities that impact plan: ?? Total # of Factors: 0 1-2 3+ x ?? Examination of body system impairments, functional limitations and behaviors, and/or participation restrictions. Addressing 1-2 elements Addressing 3 + elements Addressing 4 + elements x ?? Clinical presentation: See assessment above. Stable/Uncomplicated Evolving/Fluctuating Symptoms Unstable/Unpredictable X (recent cardiac arrest, psychosocial issues, weakness) ?? Clinical decision making of moderate complexity based on pt's functional performance as outlinedin this evaluation. Time IN / OUT: 2:30-3:20 Total Minutes, Physical Therapy: 50 PRISCILA GARCIA, PT Pager: [phone] Physical Therapy Inpatient Rehabilitation Department * Nidia Schultz, OT - 11/09/2021 2:55 PM EST OT contact note 11/09/21 8238 OT Time and Intention Document Type contact Total Minutes, Occupational Therapy 0 Comment, Session Not Performed OT consult received. EDH reviewed. Pt was not available (transferring rooms then getting settled). OT will follow up on Friday. Thank you for this consult. KENROY Giordano/Cherry Pager: [phone] * Shana Zurita MD - 11/09/2021 5:26 AM EST Images from the original note were not included. Cardiology ICU Progress Note?? Patient info: Name: Aniya Lundy : 1985 PCP: Kenia Lawrence APRN PCP phone number: [phone] Date of Admission: 11/04/2021 ( Hospital Day 5 days ) Attending:Neeraj Pompa MD ID: Aniya Lundy is a 36 y.o. female with a history of tobacco use, hypertension on ZANE-I at home, anxiety, depression and recent COVID-19 infection (diagnosed 09/27/2021) who suffered an out of hospital VF arrest 11/04; with multiple subsequent VF arrests in CVCC and in cath labs on 11/04 found to have diffuse coronary and large vessel vasospasm, on hospital day 5. Chief Complaint Patient presents with ??? Cardiac Arrest 24 Hour Events/Subjective: Yesterday: -- On 5L NC. -- Did not pass swallow study; continued TF -- Started amlodopine and stopped nicardapine ggt. -- ABx: stopped Vanc and Flagyl, still on cefepime. -- Restarted nightly klonapin with PRNs in for anxiety. -- New arm proximal arm weakness without sensaion changes. -- Ordered MRA/MRi brain and MRI of cervical spine. Overnight: -- NAEO -- Refused MRA/MRI due to concerns of claustrophobia This AM: - Awake and alert, doing better overall. reports feeling very thirsty this morning. Still endorses some bilateral upper arm pain/weakness.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 ?? Vocal quality change: Yes w/ thin liquid trials ?? Cough / throat clear: Immediate wet cough w/ thin, nectar, and honey thick liquid trials; delayed cough w/ puree ?? Pt. complaint of food getting stuck: Pt swallowing x3-4 w/ honey thick and puree trials ?? Fatigue across trials: Yes ?? Respiratory rate and respiratory swallow pattern: No changes w/ limtied PO trials attempted Esophageal Phase ?? No overt clinical s/s of esophageal phase dysphagia noted during this limited evaluation. Compensatory Techniques: Pt was able to return demonstrate effective use of strategies but requiredrepeated prompts / cueing secondary to current mental status Education: Patient educated on results and recommendations, but verbalized limited understanding due to current AMS / groggy appearance. Patient status, treatment and swallow recommendations were discussed with nursing. Assessment: Pt w/ groggy appearance, delayed and limited responses, moderate dysphonia (s/p extubation); mild oral dysphagia and suspected pharyngeal dysphagia characterized by immediate coughing with all liquid trials, and multiple swallows to clear throat even w/ small bites puree and honey thick liquids. DHT has been placed. Diagnosis: AMS, moderate dysphonia, mild oral dysphagia, suspected pharyngeal dysphagia w/ clinicals/s aspiration noted at bedside Recommendations: Diet: NPO, May offer individual ice chips for pleasure / practice, Use DHT for nutrition / hydration PO medications: IV or other alternative means only Aspiration precautions: Excellent oral care Pt will benefit from continued STRIP CUTTING MACHINE OPERATOR services while hospitalized Speech Therapy Goals: (To be met by discharge) Pt will tolerate least restrictive diet without evidence of dysphagia / aspiration. Pt / caregiver will be independent with aspiration precautions, diet modifications, and safe swallowing strategies. Pt. will take part in full cognitive / language evaluation. Plan: Therapy Frequency (STRIP CUTTING MACHINE OPERATOR Eval): 2-4 times/wk Pt./family are in agreement with treatment plan. Total Minutes (Speech Language Pathology): 18 Thank you for this consult with this patient. Please feel free to page me with any questions or concerns. Dianna Tomlinson MA, [facility]-STRIP CUTTING MACHINE OPERATOR Pager: [phone] Speech-Language Pathology Inpatient Rehabilitation Medicine * Jewels Cuevas RD - 11/08/2021 8:00 AM EST Nutrition Initial Note Aniya Lundy is a 36 y.o. female with a history of??tobacco use, hypertension on ZANE-I at home,anxiety,??depression and recent COVID-19 infection (diagnosed 09/27/2021)??who suffered an out of hospital VF arrest 11/04; with multiple subsequent VF arrests in CVCC and in cath labs on 11/04 found tohave diffuse coronary and large vessel vasospasm Reason for intervention: ICU Tube-feeding Nutrition Recommendations: STRIP CUTTING MACHINE OPERATOR cx pending Pt is NPO X 5 today w/ DHT and trophic feeds started Suggest TF goal of Peptamen AF with a goal rate of 65 ml per hour plus 0 scoop(s) of protein powderdaily. This rate is calculated to compensate for unplanned time off feedings due to potential procedures, etc. At goal, this will provide 1300 ml formula, 1560 calories, 98 grams protein, 1050 ml water from formula + 0 ml water from protein powder administration and 100% of RDI's for vitamins and minerals. No BM since admit; suggest change Miralax from prn to regularly scheduled I was able to discuss plan with provider Agnes Zurita MD #[id number] via secure chat. All Active TF Orders: Peptamen AF @ 10 ml/hr Tubefeeding Orders (From admission, onward) Start Dose/Rate Route Frequency Ordered Stop 11/08/21 0815 tube feeding diet 1,000 mL 10 mL/hr Per NG tube CONTINUOUS 11/08/21 0727 Enteral access: DHT Oxygen Therapy/airway: O2 Device: Nasal cannula Lab Results Component Value Date NA 141 11/08/2021 K 4.0 11/08/2021 CL 108 (H) 11/08/2021 CO2 23 11/08/2021 BUN 12 11/08/2021 CREATININE 1.00 11/08/2021 ESTGFR 72 11/08/2021 MAGNESIUM 0.86 11/07/2021 CALCIUM 8.3 (L) 11/08/2021 PHOS 2.9 11/05/2021 AST 107 (H) 11/06/2021 ALT 64 (H) 11/06/2021 ALKPHOS 61 11/06/2021 BILITOT 0.2 11/06/2021 BILIDIR 0.2 11/06/2021 TRIG 130 11/04/2021 CRP 29.1 (H) 11/05/2021 No results found for: POCGLU Skin Status: Shift Pressure Injury Prevention Occiput: No Injury Thoracic Spine: No Injury Sacral: No Injury Ischial - left: No Injury Ischial - right: No Injury Heel - left: No Injury Heel - right: No Injury Elbow - left: No Injury Elbow - right: No Injury Device Sites: NGT,ETT,O2 sat monitor,oxygen tubing,A line sites - tubing, A line Board,wrist restraints,IV sites,yang,ECG Leads Other Sites: introducer asa ingram Relevant medications: prn Miralax, Dulcolax Last Bowel Movement: (PAPETERIE TABLE ASSEMBLER) I/O from last 2 shifts: Intake/Output Summary (Last 24 hours) at 11/08/2021 0800 Last data filed at 11/08/2021 0600 Gross per 24 hour Intake 1071.99 ml Output 4455 ml Net -3383.01 ml Admit Weight: 70 kg Estimated body mass index is 30.64 kg/m?? as calculated from the following: Height as of this encounter: 162.6 cm (5' 4.02). Weight as of this encounter: 81 kg (178 lb 9.2 oz). 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 STRIP CUTTING MACHINE OPERATOR cx pending Estimated needs: Calories: 7399-3258 (20-25 kcal/kg UBW) Protein: 90-120 grams (1.5- 2.0 kg IBW) Tolerance or barriers to meeting needs: no BM since admit Nutrition Focused Physical Exam (NFPE): Not performed Protein-calorie Malnutrition: Not enough data to assess (WARREN Almanza J Parenteral Enteral Nutr. 2012 February; 36(3): 273-83) Nutrition to continue to follow up while inpatient JEWELS CUEVAS RD Pager #:[phone] * Valorie Obrien MD - 11/08/2021 5:20 AM EST Images from the original note were not included. Cardiology ICU Progress Note? I have seen and examined this patient and discussed with the internet assessor, resident, fellow. ??I agree with the plan noted ?? This is a 36 year old woman who has no known cardiac disease but this morning was heard moaning in bed after which her boyfriend returned to the bedroom and found her unresponsive. ??He administered CPR X approx 10 min. ??EMS arrived and found her in ventricular fibrillation (no strips available dafne reviewed) ??gave her one shock, began transport. ??Epi X 2 given with ROSC but no indication of meaningful response (mental status). ??Bedside echo by Dr. Alves was unremarkable. ?? She has a history of psychiatric disorders (bipolar) and is on several medications that can prolongthe QTc however review of her chart shows measures of ~ 480 or less. ??She presented to [facility] in Sep 2021 with chest pain but r/o for PR. ??She had COVID in 2020 (she was not vaccinated). ??See note below with history provided by Ms. Lundy's mother. ?? Initial venous pH 7.09 lactate 65. ??CK 135, d-dimer 5000 (r/o for PE), Serum creatinine 1.55 (baseline ~ 1.0), hemoglobin 12.4, platelets 298, WBC 25, AST 72 ??ALT 79. ??Troponin 0.02. ?? Shortly after 3 pm??FridayNov 05, Dr. Marek Alves, community assistant was bedside when she again went into Vfib. ??While the etiology of her arrest is still not clear (she is at relatively low risk for obstructive coronary artery disease). ??There was severe spasm of her femoral artery when the catheter was introduced and similar effect when engaging her left main coronary artery and injection of contrast. ??She went into ventricular fibrillation several times and required shocks when this occurred. ??There was no clear obstructive CAD seen. ??The RCA was not studied due to repeated Vfib. ?? An IABP was placed and she was started on lidocaine and IVNTg which was then changed to IV nicardipine. ??She remained stable hemodynamically without pressors but IABP kept at 1:1.??This was successfully weaned down and removed. She continues to improve and most recent development is apparent good neurologic status. The team was able to talk with her although this was limited as it was hard for her to speak. We are transitioning her to po calcium channel nash ?? Etiology of her cardiac arrest and Vfib as well as severe spasm of major arteries is unclear. ??We will continue to investigate but appears to be a sequelae of recent COVID infection. ??We will also discuss with our electrophysiology team about ICD. ? Valorie Obrien MD, [place], [facility] Cardiology Attending? Patient info: Name: Aniya Lundy : 1985 PCP: Kenia Lawrence APRN PCP phone number: [phone] Date of Admission: 11/04/2021 ( Hospital Day 4 days ) Attending:Valorie Obrien MD ID: Aniya Lundy is a 36 y.o. female with a history of tobacco use, hypertension on ZANE-I at home, anxiety, depression and recent COVID-19 infection (diagnosed 09/27/2021) who suffered an out of hospital VF arrest 11/04; with multiple subsequent VF arrests in CVCC and in cath labs on 11/04 found to have diffuse coronary and large vessel vasospasm, on hospital day 2. Chief Complaint Patient presents with ??? Cardiac Arrest 24 Hour Events/Subjective: Yesterday: -- Off levo, lido, amio . -- continued nicardipine -- Continued Abx: cefe+metronidazole and vanc -- MRSA pending -- Sedation weaned off -- Extubated to 5L NC -- following commands but drowsy. Overnight: -- NAEO This AM: - Awake and alert, reports feeling very thirsty this morning. Endorses some bilateral upper arm pain. Denies fevers, chills, chest pain, SOB, palpitations, LH/dizziness. Still no BM. Vasoactive & Sedating Medications: Infusions: Continuous Infusions: ??? tube feeding diet ??? tube feeding diet ??? dexmedetomidine Stopped (11/07/21 1645) ??? NORepinephrine 0 mcg/min (11/07/21 0700) ??? lidocaine (pf) 15 mL/hr at 11/05/21 0500 ??? nitroGLYcerin Stopped (11/04/212115) ??? sodium chloride 0.9% Stopped (11/04/212199) ??? niCARdipine 5 mg/hr (11/08/21 0600) Ventilator Settings: Mode: Servo U Ventilator Mode: (S) Other (comment) (Extubated to NC 5L/min), SET RR: TV: PEEP: FiO2: VARIABLES Tidal Volume Set: 440 Set PEEP (cm H2O): (S) 5 Set FiO2: (S) 30 % PATIENT RR: PIP: Pplateau: SpO2: OUTPUT Resp: 16 Peak Inspiratory Pressure: 9 Plateau Pressure (cm H2O): 20 SpO2: 97 % ABG (Arterial Blood Gas) Recent Labs 11/07/21 0940 11/07/21 0630 11/07/217 11/06/21204311/06/21 1759 PHART 7.34* 7.23* 7.25* 7.24* 7.23* [id number] 37 46* 40 42 43 PO2ART 88 90 117* 80* 71* GNG4EOD 19.2* 18.6* 17.0* 17.6* 17.6* LACTATEVEN 0.6 0.4* 0.5 0.9 1.7 AGI2KKB 40 50 70 80 70 PFRATIOART2 220 180 167 100 101 VBG (Venous Blood Gas) Recent Labs 11/07/21 0940 11/07/21 0630 11/07/21 0207 11/06/21204311/06/21 1759 11/04/21 0843 11/04/21 0733 PHVEN -- -- -- -- -- -- 7.09* YBD3HXF -- -- -- -- -- -- 66* PO2VEN -- -- -- -- -- -- 31 WWU3HSR -- -- -- -- -- -- 19.7 LACTATEVEN 0.6 0.4* 0.5 0.9 1.7 < > 6.5* < > = values in this interval not displayed. Mixed Venous Sat No results for input(s): D0GIOE8 in the last 168 hours. Objective: Vitals Last value Range last 24 hrs Temperature Temp: 37 ??C (98.6 ??F) Temp: [37 ??C (98.6 ??F)-38 ??C (100.4 ??F)] Heart Rate Heart Rate: (!) 103 Heart Rate: [66-122] Blood Pressure BP: 138/74 BP: (105-157)/(46-117) Art Line BP BP (Arterial Line): 75/64 BP (Arterial Line): (69-148)/(55-135) MAP (NBP): [63 mmHg-125 mmHg] Respiratory Rate Resp: 16 Resp: [13-27] SpO2 SpO2: 97 % SpO2: [91 %-100 %] Oxygen Delivery Oxygen Therapy O2 Device: Nasal cannula O2 Flow Rate (L/min): 5 L/min FiO2 (%): 100 % Intake/Output Summary (Last 24 hours) at 11/08/2021 0941 Last data filed at 11/08/2021 0600 Gross per 24 hour Intake 1071.99 ml Output 4455 ml Net -3383.01 ml Patient Vitals for the past 168 hrs: Weight 11/08/21 0400 81 kg (178 lb 9.2 oz) 11/07/21 0400 81 kg (178 lb 9.2 oz) 11/04/21 0723 70 kg (154 lb 5.2 oz) Admit wt: 70 kg Physical Exam: Gen: No acute distress, resting comfortably in bed. On NC. HEENT: PERRLA, EOMI, no icterus, MMM CV: Regular rate and rhythm. No murmurs appreciated. Pulm: Normal respiratory effort, coarse breathe sounds. On 5L NC. Abd: Soft, non-tender, non-distended. No guarding or rebound. Ext: No pedal edema. No gross abnormalities. BLE arm pain. Neuro: Awake, alert. Moves extremities spontaneously. Cranially nerves grossly intact. 4/5 BUE weakness. Lines/Drains/Airways - ETT - central line - [place] - LDA Cath/EP sheath - Intra-aortic balloon pump - A-line - peripheral ivs x2 Labs: Recent Labs 11/08/21 0430 11/07/21 0030 11/06/21 0425 11/05/21 0108 11/04/21 1530 WBC 18.3* 21.4* 17.0* 11.8* 16.8* HGB 8.6* 8.0* 9.2* 9.7* 11.0* HCT 27.3* 25.3* 28.5* 30.9* 34.9* PLATELET 154 132* 156 185 230 MCV 82.7 86.1 84.3 82.8 82.5* Recent Labs 11/08/21 0430 11/07/21 0800 11/07/21 0030 11/06/21 2030 11/06/21 0425 11/05/21 1406 11/05/218 11/04/21 0735 NA 141 -- 139 -- 138 137 137 140 CL 108* -- 111* -- 108* 108* 110* 104 CO2 23 -- 18* -- 19* 19* 19* 19* K 4.0 -- 5.2* -- 4.5 4.3 4.0 5.1* MAGNESIUM -- 0.86 -- 0.80 -- 0.99 0.80 1.04 PHOS -- -- -- -- -- -- 2.9 6.2* CALCIUM 8.3* -- 7.6* -- 7.8* 7.7* 7.7* 9.4 BUN 12 -- 14 -- 14 15 17 20* CREATININE 1.00 -- 1.55* -- 1.34* 1.17 0.78 1.55* LFTs Recent Labs 11/06/2142411/04/21 0735 PROT 5.3* 6.8 ALBUMIN 3.3 4.4 AST 107* 72* ALT 64* 79* ALKPHOS 61 88 BILITOT 0.2 0.2 BILIDIR 0.2 -- Coags Recent Labs 11/06/2142411/04/21 0735 INR 1.1 -- PT 12.4 -- DDIMER -- 5,001* Cardiac Enzymes Recent Labs 11/05/21 0627 11/05/21 0108 11/04/21 1300 11/04/21 0735 CK -- -- -- 135 TROPONINT 0.06* 0.07* 0.24* 0.02* Endocrine Recent Labs 04/23/21 1910 TSH 1.97 Recent Labs 11/04/21 1454 POCGLU 94 Heme No results for input(s): LDH, HAPTOGLOBIN, URICACID in the last 168 hours. ABG (Arterial Blood Gas) Recent Labs 11/07/21 0940 11/07/21 0630 11/07/21 0207 11/06/214 11/06/21 1759 PHART 7.34* 7.23* 7.25* 7.24* 7.23* IHZ0VWX 37 46* 40 42 43 PO2ART 88 90 117* 80* 71* PEB5DGW 19.2* 18.6* 17.0* 17.6* 17.6* LACTATEVEN 0.6 0.4* 0.5 0.9 1.7 [id number] 40 50 70 80 70 PFRATIOART2 220 180 167 100 101 VBG (Venous Blood Gas) Recent Labs 11/07/21 0940 11/07/21 0630 11/07/21 0207 11/06/214 11/06/21 1759 11/04/21 0843 11/04/21 0733 PHVEN -- -- -- -- -- -- 7.09* GGI1GZP -- -- -- -- -- -- 66* PO2VEN -- -- -- -- -- -- 31 ULK0DUJ -- -- -- -- -- -- 19.7 LACTATEVEN 0.6 0.4* 0.5 0.9 1.7 < > 6.5* < > = values in this interval not displayed. Mixed Venous Sat No results for input(s): H0QQHI3 in the last 168 hours. Microbiology: Microbiology Results (Last 30 days) Procedure Component Value Units Date/Time Blood culture [[id number]] Collected: 11/06/211999 Lab Status: Preliminary result Specimen: Blood from Hand, Left Updated: 11/07/212300 Blood Culture No growth at 1 day. Blood culture [[id number]] Collected: 11/06/211846 Lab Status: Preliminary result Specimen: Blood Updated: 11/07/212300 Blood Culture No growth at 1 day. Lower Respiratory Culture Tracheal Aspirate [[id number]] Collected: 11/06/21 1220 Lab Status: Preliminary result Specimen: Tracheal Aspirate Updated: 11/07/21 1420 Lower Respiratory Culture Many mixed bacterial morphotypes suggestive of normal upper respiratory al Gram Stain -- Many Neutrophils seen Few squamous epithelial cells seen Many mixed bacterial morphotypes suggestive of normal upper respiratory al Blood culture [[id number]] Collected: 11/04/21 2250 Lab Status: Preliminary result Specimen: Blood from Hand, Right Updated: 11/07/21 2301 Blood Culture No growth at 3 days. Blood culture [[id number]] Collected: 11/04/21 2215 Lab Status: Preliminary result Specimen: Blood from Antecubital, Right Updated: 11/07/21 2301 Blood Culture No growth at 3 days. COVID-19 PCR [[id number]] Collected: 11/04/21 0735 Lab Status: Final result Specimen: Nasopharyngeal Swab Updated: 11/04/21 1246 SARS-CoV-2 RNA PCR Not Detected Comment: This result should be interpreted in combination with the clinical observations, patient history and epidemiological information. For testing of asymptomatic individuals, assay performance characteristics and clinical utility have not been evaluated. Testing for SARS-CoV-2 (Severe acute respiratory syndrome coronavirus 2, formerly known as 2019 novel coronavirus or 2019-nCoV) to aid in the diagnosis of COVID-19 is performed using the Simplexa COVID-19 Direct Assay by [employer] as authorized by the FDA issued Emergency Use Authorization (EUA). This assay is intended for In-vitro Diagnostic (IVD) use with nasopharyngeal swabs collected from individuals meeting the CDC criteria for testing. The assay is performed based on the instructions for use and additional guidance provided by the FDA. Testing is performed in the Microbiology Laboratory within the Department of Pathology and Laboratory Medicine at [facility], certified under the Clinical Laboratory Improvement Amendments of 1988 (CLIA), 42 U.S.C. section 263a, to perform high complexity tests. Assay performance has been verified according to clinical laboratory regulatory requirements. Test results are provided above. A result of Not Detected indicates that [...] test are highly dependent on disease prevalence. A result of Invalid indicates the inability to conclusively determine the presence or absence of SARS-CoV-2 RNA in the sample which can be due to a variety of factors. Recollection is recommended in the case of an invalid result. CDC COVID-19 criteria for testing on human specimens and clinical management guidance information are available at the CDC Coronavirus Disease 2019 (COVID-19) webpage under Information for Healthcare Professionals (https://www.cdc.gov/coronavirus/2019-ncov/hcp/index.html). Additional information about this and other EUA tests can be found in provider and patient fact sheets at the following FDA website: https://www.fda.gov/medical-devices/bertjxjgebi-khzkijb-1761-ctaid-88-wepzjjlgf- kjd-ikopcixerwczyu-soqeyuq-devices/scwci-esyifvpqqfx-msrq SARS-CoV-2 Source [employer]IL[employer]ICER Swab Imaging: Results for orders placed or performed during the hospital encounter of 11/04/21 XR Chest One View (Exam End: 11/04/2021 10:09 AM) Impression Endotracheal tube terminates over the mid trachea. Thank you for letting us participate in the care of this patient. If you are a health care provider and have any questions regarding this report, please contact the number below. For patients who have questions please contact the health home day care provider that requested your imaging first. Abdomen 1 view (Generic) (Exam End: 11/04/2021 10:09 AM) Impression Orogastric tube placement, as above. Thank you for letting us participate in the care of this patient. If you are a health care provider and have any questions regarding this report, please contact the number below. For patients who have questions please contact the health home day care provider that requested your imaging first. Head wo Contrast (Generic) (Exam End: 11/04/2021 9:37 AM) Impression Diffuse cerebral edema consistent with the history. I have personally reviewed the image(s) and the resident's interpretation and agree with the findings, Alejo Garcia MD at 11/04/2021 9:55 AM Thank you for letting us participate in the care of this patient. If you are a health care provider and have any questions regarding this report, please contact the number below. For patients who have questions please contact the health home day care provider that requested your imaging first. Angiogram Chest for Pulmonary Embolus w Contrast (Exam End: 11/04/2021 9:37 AM) Impression 1. No pulmonary embolism identified. 2. Bibasilar atelectasis, particularly on the left where there is collapse of much of the left lower lobe. 3. Hazy opacities within the inferior left upper lobe are nonspecific and may be infectious or traumatic in nature. 4. Motion artifact or nondisplaced fracture of the mid sternum. Motion artifact is favored. Recommend clinical correlation. Thank you for letting us participate in the care of this patient. If you are a health care provider and have any questions regarding this report, please contact the number below. For patients who have questions please contact the health home day care provider that requested your imaging first. Chest One View (Exam End: 11/04/2021 8:22 PM) Impression 1. Lines and tubes as above. 2. Small left pleural effusion and left basilar atelectasis, compatible with expected postprocedural changes. I have personally reviewed the image(s) and the resident's interpretation and agree with the findings, Jennifer Bassett MD at 11/04/2021 8:53 PM Thank you for letting us participate in the care of this patient. If you are a health care provider and have any questions regarding this report, please contact the number below. For patients who have questions please contact the health home day care provider that requested your imaging first. Chest One View (Exam End: 11/05/2021 8:40 AM) Impression 1. Intra-aortic balloon pump marker is 1.8 cm below the aortic knob. 2. Slightly improved left basilar atelectasis and resolved left pleural effusion. I have personally reviewed the image(s) and the resident's interpretation and agree with the findings, Danielle Rausch MD at 11/05/2021 9:48 AM Thank you for letting us participate in the care of this patient. If you are a health care provider and have any questions regarding this report, please contact the number below. For patients who have questions please contact the health home day care provider that requested your imaging first. Chest One View (Exam End: 11/06/2021 6:36 AM) Impression * Equipment as above. * Mild pulmonary vascular congestion. Thank you for letting us participate in the care of this patient. If you are a health care provider and have any questions regarding this report, please contact the number below. For patients who have questions please contact the health home day care provider that requested your imaging first. Electronically signed by: Kimberley Pichardo MD, [facility] ([phone]), at 11/06/2021 6:47 AM XR Chest One View (Exam End: 11/06/2021 6:39 PM) Impression 1. New indistinct opacities in the left lower lung may represent combination collapse/consolidation left lower lobe with overlying small left pleural effusion. 2. Mild pulmonary vascular congestion, stable. 3. Support equipment as above. I have personally reviewed the image(s) and the resident's interpretation and agree with the findings, Danielle Rausch MD at 11/07/2021 9:56 AM Thank you for letting us participate in the care of this patient. If you are a health care provider and have any questions regarding this report, please contact the number below. For patients who have questions please contact the health home day care provider that requested your imaging first. Chest One View (Exam End: 11/07/2021 9:16 AM) Impression 1. Tubes and lines with expected position. 2. Persistent atelectasis/airspace consolidation at the left medial base unchanged from prior. Significant improvement in inflation of the right lower lobe. 3. Decreased central pulmonary vascular congestion and interstitial edema. Thank you for letting us participate in the care of this patient. If you are a health care provider and have any questions regarding this report, please contact the number below. For patients who have questions please contact the health home day care provider that requested your imaging first. Abdomen 1 view (Generic) (Exam End: 11/07/2021 11:25 AM) Impression The distal tip of the nasogastric tube projects in the region of the antrum of the stomach. Thank you for letting us participate in the care of this patient. If you are a health care provider and have any questions regarding this report, please contact the number below. For patients who have questions please contact the health home day care provider that requested your imaging first. Medications Scheduled Meds: ??? ceFEPime (Maxipime) 2g vial attach to sodium chloride 0.9% 100 mL Mini-Bag Plus 2 g [id number] ??? amLODIPine 5 mg Oral Daily ??? vancomycin 1.5 g Intravenous Q12H ??? [START ON 11/09/2021] Vancomycin Level - MAR Order Reminder NOT APPLICABLE Once ??? enoxaparin 40 mg Subcutaneous Nightly ??? lidocaine 3 patch Transdermal Q24H And ??? lidocaine 3 patch Transdermal Q24H ??? metroNIDAZOLE 500 mg Intravenous Q8H SONALI ??? atorvastatin 40 mg Oral QPM ??? famotidine 20 mg Oral BID ??? chlorhexidine 15 mL Oral BID ??? white petrolatum-mineral oiL 1 each Both Eyes BID ??? sodium chloride 0.9 % (flush) 5 mL Intravenous BID ??? white petrolatum-mineral oiL Topical (Top) Q8H SONALI Continuous Infusions: ??? tube feeding diet ??? tube feeding diet ??? dexmedetomidine Stopped (11/07/21 1645) ??? NORepinephrine 0 mcg/min (11/07/21 0700) ??? lidocaine (pf) 15 mL/hr at 11/05/21 0500 ??? nitroGLYcerin Stopped (11/04/21 2116) ??? sodium chloride 0.9% Stopped (11/04/21 2200) ??? niCARdipine 5 mg/hr (11/08/21 0600) PRN Meds:.midazolam (PF), senna, polyethylene glycoL (MIRALAX) oral powder, sodium chloride 0.9 % (flush), nitroGLYcerin, busPIRone, lidocaine (pf), nitroGLYcerin, sodium chloride 0.9%, iohexoL Assessment & Plan: Aniya Lundy is a 36 y.o. female with a history of tobacco use, hypertension on ZANE-I at home, anxiety, depression and recent COVID-19 infection (diagnosed 09/27/2021) who suffered an out of hospital VF arrest 11/04; with multiple subsequent VF arrests in [facility] and in cath labs on 11/04 found to have diffuse coronary and large vessel vasospasm. Currently etiology of large vessel vasospasm is unclear. Theres is some association with COVID and pt did notably smoke many cigarettes prior to event on 11/04 per collateral, which may have contributed to vasospasm however doesn't fully explain the extent she was witnessed to experience in both femoral and coronary vessels during Cath. Likely has been having some degree of vasospasm for a while, given has been having intermittent chest discomfort for a few months. Utox unremarkable aside from benzos which she is prescribed at home, remote history of cocaine use, however her sedation requirements were quite high suggesting she has developed some tolerance. Discussed with rheum; unlikely to be rheumatologic in nature. Today she is doing very well, she is extubated and off of pressors with only continuous drip being nicardipine for vasospasm. She is awake and alert and conversive today; mental status intact and no focal neuro deficits. Has reported bilateral upper extremity pain and weakness, which appears to be MSK in nature. Plan today will be to start high dose oral CCB and wean off nicardipine. 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 Neuro recommend getting MRI brain and cerv and MRAwo to assess for any evidence of prior intracranial vasospasm, BUE weakness and lower extremities paresthesias. Plan: Neuro: - Off sedation - follow up Transcranial doppler - d/c EEG - Neuro recommend MRI brain and cerv and MRA ?? CV: # Vasospasm # Cardiac Arrest - Continue with nicardipine 5 mg/hr; may wean to 2.5 later today. - Start amlodipine 10mg today - Off levo - Removed IABP - Starting statin (possible benefit to vasospasm) - d/c lidocaine - d/c amio - Will put on EPs radar for ICD. ?? Pulmonology: # concern for aspiration pna vs pneumonitis - On 5L NC; wean as tolerated - Continue cefepime 1g QD - d/c metronidazole. - MRSA swab pending; likely d/c Vanc ?? GI: - Continue TF with NG - STRIP CUTTING MACHINE OPERATOR evaluation pending; then will resume PO - Continue bowel reg: miralax and senna Renal: # JENNIFER - resolved - Good UOP. - Will diurese if needed. ?? Hematology #Anemia - Monitor hemoglobin ID: #concern for aspiration pna #fever - Continue cefepime 1g QD - d/c metronidazole (anerobic coverage) - MRSA swab pending; likely d/c Vanc - IV tylenol prn for fever - Trend WBC ?? Psych: # Bipolar - Continue to hold home meds. ?? #Routine Diet: NPO diet (Give Meds) DVT Prophylaxis: heparin GI Prophylaxis: famotidine Code Status: Attempt Cardiopulmonary Resuscitation - Inpatient Dispo: Pending clinical course Shana Zurita MD Internal Medicine, PGY1 Cardiology, M1-S1, #[id number] 11/08/21 9:41 AM * Alexander-Faviola Colin RN - 11/08/2021 3:56 AM ESTSummary: 11/07 Patient transferred laterally from [facility], neuro checks, slow speech moves all extremities against gravity, on going EEG, 11/07 had vaso spasms, started on Nicardipine at 4mg/h, extubated 11/07, 5L NC, ev hall, menstration 11/07 . Skin intact * Tameka Spann MD - 11/07/2021 1:06 PM EST CRITICAL CARE ATTENDING PROGRESS NOTE ASSESSMENT, MANAGEMENT, and DECISION MAKING: NEURO: When sedation is decreased (yesterday) she was following commands. Would plan to turn down sedation to get her to a point where she is interactive. Consider extubation. RESP: Yesterday had a significant impairment of oxygenation. Suspect aspiration pneumonia. On empiric antibiotic coverage. Has improved. Would evaluate for potential extubation. CV: Ongoing administration of vasodilator therapy. Would consider changing to oral medications shortly. GI: Prophylaxis needed. Placed narrow-bore naso-enteric tube, anticipate that she will need enteralnutrition regardless of extubation potential. HEME: Heparin anticoagulation. ID: Empiric coverage. Would narrow to cephalosporin if no evidence of gram positive pathogens. Patient seen and examined. Aniya Lundy is a 36 y.o. female has issues that include: Active Hospital Problems Diagnosis ??? Coronary artery vasospasm ??? *History of COVID-19 ??? Cardiac arrest ??? Post-traumatic stress disorder, chronic ??? Borderline personality disorder ??? Anxiety disorder, unspecified The patient is a 34-year-old woman who presented with worsening anxiety surrounding nonspecific somatic complaints such as full body tingling. She has a number of existing medical issues such as HTN,asthma, and GERD, the symptoms of which (e.g. heartburn, cough) tend to provoke her anxiety. ??? Depression ??? Asthma Rx PRN albuterol Pulmonary workup negative 2007 (in [facility]) ??? Hypertension Onset 2013, variable BP highs of 160-170 systolic, then normal Resolved Hospital Problems No resolved problems to display. Active Non-Hospital Problems Diagnosis ??? Gastroesophageal reflux disease Added automatically from request for surgery [id number] ??? Chest pain ETT 2013- negative ST III Echo 2013 ??Normal LV size and function, trivial TR, mild PI ??? Skin disease ??? Anxiety ??? Tachycardia EXAM: Temp: [37.2 ??C (99 ??F)-38 ??C (100.4 ??F)] Heart Rate: [47-82] Resp: [14-20] BP: (93-124)/(46-56) SpO2: [92 %-100 %] Heart Rate from SpO2: [48 bpm-82 bpm] Physical Exam Constitutional: Appearance: Normal appearance. Interventions: She is sedated and intubated. Eyes: Pupils: Pupils are equal, round, and reactive to light. Cardiovascular: Rate and Rhythm: Normal rate. Pulmonary: Effort: She is intubated. Breath sounds: Normal breath sounds. Body mass index is 30.64 kg/m??. IS PATIENT CRITICALLY ILL ? Is there a high potential of sudden, clinically significant, or life threatening deterioration? Yes Is there a need for direct personal assessment and management to treat/prevent multiple vital organfailure/deterioration? Yes PATIENT IS CRITICALLY ILL WITH THESE DIAGNOSES BEING MANAGED: Cardiac Arrest Ventricular fibrillation Coma Respiratory Failure Acute with hypoxia Acute with hypercapnia I personally performed 30 minutes of aggregate critical care time exclusive of procedures and teaching. This includes time spent during direct patient evaluation and reassessment, interpreting diagnostic tests, directing life and/or organ supporting interventions and documentation on the unit. Timenoted does not include overlapping time with other physicians or associate providers. * Valorie Obrien MD - 11/07/2021 5:46 AM EST Images from the original note were not included. Cardiology ICU Progress Note I have seen and examined this patient and discussed with the internet assessor, resident, fellow. ??I agree with the plan noted ?? This is a 36 year old woman who has no known cardiac disease but this morning was heard moaning in bed after which her boyfriend returned to the bedroom and found her unresponsive. ??He administered CPR X approx 10 min. ??EMS arrived and found her in ventricular fibrillation (no strips available dafne reviewed) ??gave her one shock, began transport. ??Epi X 2 given with ROSC but no indication of m eaningful response (mental status). ??Bedside echo by Dr. Alves was unremarkable. ?? She has a history of psychiatric disorders (bipolar) and is on several medications that can prolongthe QTc however review of her chart shows measures of ~ 480 or less. ??She presented to [facility] in Sep 2021 with chest pain but r/o for PR. ??She had COVID in 2020 (she was not vaccinated). ??See note below with history provided by Ms. Lundy's mother. ?? Initial venous pH 7.09 lactate 65. ??CK 135, d-dimer 5000 (r/o for PE), Serum creatinine 1.55 (baseline ~ 1.0), hemoglobin 12.4, platelets 298, WBC 25, AST 72 ??ALT 79. ??Troponin 0.02. ?? Shortly after 3 pm??FridayNov 05, Dr. Marek Alves, community assistant was bedside when she again went into Vfib. ??While the etiology of her arrest is still not clear (she is at relatively low risk for obstructive coronary artery disease). ??There was severe spasm of her femoral artery when the catheter was introduced and similar effect when engaging her left main coronary artery and injection of contrast. ??She went into ventricular fibrillation several times and required shocks when this occurred. ??There was no clear obstructive CAD seen. ??The RCA was not studied due to repeated Vfib. ?? An IABP was placed and she was started on lidocaine and IVNTg which was then changed to IV nicardipine. ??She remained stable hemodynamically without pressors but IABP kept at 1:1. This was successfully weaned down and removed. She continues to improve although mental status is unclear. ?? Etiology of her cardiac arrest and Vfib as well as severe spasm of major arteries is unclear. ??We will continue to investigate and see if this could be a sequelae of recent COVID infection. ??We will also discuss with our electrophysiology team about ICD. ? Valorie Obrien MD, Naye, [facility] Cardiology Attending? Patient info: Name: Aniya Lundy : 1985 PCP: Kenia Lawrence APRN PCP phone number: [phone] Date of Admission: 11/04/2021 ( Hospital Day 3 days ) Attending:Valorie Obrien MD ID: Aniya Lundy is a 36 y.o. female with a history of tobacco use, hypertension on ZANE-I at home, anxiety, depression and recent COVID-19 infection (diagnosed 09/27/2021) who suffered an out of hospital VF arrest 11/04; with multiple subsequent VF arrests in [facility] and in cath labs on 11/04 found to have diffuse coronary and large vessel vasospasm, on hospital day 2. Chief Complaint Patient presents with ??? Cardiac Arrest 24 Hour Events/Subjective: Yesterday: -- Requiring fentanyl 200 + propofol 50 for sedation -- Sedation weaned; able to follow commands -- Passed trial; Aortic balloon pump removed. -- Started on IV abx for worsening secretions. -- CXR showing some mild pulmonary vascular congestion. -- Weaned of sedation, following commands. -- PM: increased secretions, desatting to mid 80's -- FiO2 requirements increased to 80. -- Febrile; gave IV tylenol. -- Switching abx to cefe+metronidazole and vanc for better anaerobic coverage. Overnight: -- A-line didn't draw back, rewired -- Downtitrated to 50% FIO2, Temp hanging around 37.8-38.2. This AM: -- Sedation weaned to fentanyl 100mg; propofol 50. -- Off levo, lido, amio . -- continue on nicardipine ggt Vasoactive & Sedating Medications: Infusions: Continuous Infusions: ??? dexmedetomidine Stopped (11/06/211999) ??? fentaNYL 100 mcg/hr (11/07/21599) ??? vasopressin Stopped (11/05/211813) ??? NORepinephrine 0 mcg/min (11/07/21699) ??? propofoL 50 mcg/kg/min (11/07/21699) ??? lidocaine (pf) 15 mL/hr at 11/05/21 0500 ??? nitroGLYcerin Stopped (11/04/212115) ??? sodium chloride 0.9% Stopped (11/04/212199) ??? niCARdipine 5 mg/hr (11/07/21599) Ventilator Settings: Mode: Servo U Ventilator Mode: SIMV (VC) + PS, SET RR: TV: PEEP: FiO2: VARIABLES Tidal Volume Set: 440 Set PEEP (cm H2O): 10 Set FiO2: 40 % PATIENT RR: PIP: Pplateau: SpO2: OUTPUT Resp: 16 Peak Inspiratory Pressure: 24 Plateau Pressure (cm H2O): 20 SpO2: 99 % ABG (Arterial Blood Gas) Recent Labs 11/07/2120611/06/21204311/06/21175811/06/213 11/06/21 0746 PHART 7.25* 7.24* 7.23* 7.33* 7.29* [id number] 40 42 43 34* 40 PO2ART 117* 80* 71* 67* 62* [id number] 17.0* 17.6* 17.6* 17.5* 18.9* LACTATEVEN 0.5 0.9 1.7 0.8 0.9 QIK4HRT 70 80 70 50 40 PFRATIOART2 167 100 101 134 155 VBG (Venous Blood Gas) Recent Labs 11/07/2120611/06/21204311/06/21175811/06/213 11/06/21 0746 11/04/21 0843 11/04/21 0733 PHVEN -- -- -- -- -- -- 7.09* ATS7SLL -- -- -- -- -- -- 66* PO2VEN -- -- -- -- -- -- 31 KOG8MDF -- -- -- -- -- -- 19.7 LACTATEVEN 0.5 0.9 1.7 0.8 0.9 < > 6.5* < > = values in this interval not displayed. Mixed Venous Sat No results for input(s): C6WNPV6 in the last 168 hours. Objective: Vitals Last value Range last 24 hrs Temperature Temp: 37.8 ??C (100 ??F) Temp: [36.9 ??C (98.4 ??F)-38 ??C (100.4 ??F)] Heart Rate Heart Rate: 69 Heart Rate: [47-82] Blood Pressure BP: 122/53 BP: (93-124)/(46-56) Art Line BP BP (Arterial Line): 93/67 BP (Arterial Line): (82-129)/(45-94) MAP (NBP): [60 mmHg-75 mmHg] Respiratory Rate Resp: 16 Resp: [14-20] SpO2 SpO2: 99 % SpO2: [92 %-100 %] Oxygen Delivery Oxygen Therapy O2 Device: Ventilator O2 Flow Rate (L/min): 40 L/min FiO2 (%): 50 % Intake/Output Summary (Last 24 hours) at 11/07/2021 0922 Last data filed at 11/07/2021 0600 Gross per 24 hour Intake 1774.54 ml Output 2670 ml Net -895.46 ml Patient Vitals for the past 168 hrs: Weight 11/07/21 0400 81 kg (178 lb 9.2 oz) 11/04/21 0723 70 kg (154 lb 5.2 oz) Admit wt: 70 kg Physical Exam: Gen: in bed, intubated. Sedated. HEENT: anicteric, pupils reactive. ETT in place. CV: bradycardic, regular. No murmurs appreciated. Resp: Ventilated breath sounds bilaterally, coarse. Abd: normal bowel sounds, soft, non-tender, non-distended. Neuro: Follow commands, Moves extremities spontaneously. Lines/Drains/Airways - ETT - central line - [place] - LDA Cath/EP sheath - Intra-aortic balloon pump - A-line - peripheral ivs x2 Labs: Recent Labs 11/07/21 0030 11/06/21 0425 11/05/21 0108 11/04/21 1530 11/04/21 0735 WBC 21.4* 17.0* 11.8* 16.8* 25.6* HGB 8.0* 9.2* 9.7* 11.0* 12.9 HCT 25.3* 28.5* 30.9* 34.9* 43.1 PLATELET 132* 156 185 230 298 MCV 86.1 84.3 82.8 82.5* 86.9 Recent Labs 11/07/21 0800 11/07/21 0030 11/06/21 2030 11/06/21 0425 11/05/21 1406 11/05/21 0108 11/04/21 0735 NA -- 139 -- 138 137 137 140 CL -- 111* -- 108* 108* 110* 104 CO2 -- 18* -- 19* 19* 19* 19* K -- 5.2* -- 4.5 4.3 4.0 5.1* MAGNESIUM 0.86 -- 0.80 -- 0.99 0.80 1.04 PHOS -- -- -- -- -- 2.9 6.2* CALCIUM -- 7.6* -- 7.8* 7.7* 7.7* 9.4 BUN -- 14 -- 14 15 17 20* CREATININE -- 1.55* -- 1.34* 1.17 0.78 1.55* LFTs Recent Labs 11/06/21 0425 11/04/21 0735 PROT 5.3* 6.8 ALBUMIN 3.3 4.4 AST 107* 72* ALT 64* 79* ALKPHOS 61 88 BILITOT 0.2 0.2 BILIDIR 0.2 -- Coags Recent Labs 11/06/21 0425 11/04/21 0735 INR 1.1 -- PT 12.4 -- DDIMER -- 5,001* Cardiac Enzymes Recent Labs 11/05/21 0627 11/05/21 0108 11/04/21 1300 11/04/21 0735 CK -- -- -- 135 TROPONINT 0.06* 0.07* 0.24* 0.02* Endocrine Recent Labs 04/23/21 1910 TSH 1.97 Recent Labs 11/04/21 1454 POCGLU 94 Heme No results for input(s): LDH, HAPTOGLOBIN, URICACID in the last 168 hours. ABG (Arterial Blood Gas) Recent Labs 11/07/2120611/06/21204311/06/21175811/06/21 1433 11/06/21 0746 PHART 7.25* 7.24* 7.23* 7.33* 7.29* PXV2ZGV 40 42 43 34* 40 PO2ART 117* 80* 71* 67* 62* [id number] 17.0* 17.6* 17.6* 17.5* 18.9* LACTATEVEN 0.5 0.9 1.7 0.8 0.9 [id number] 70 80 70 50 40 PFRATIOART2 167 100 101 134 155 VBG (Venous Blood Gas) Recent Labs 11/07/2120611/06/21204311/06/21175811/06/21 1433 11/06/21 0746 11/04/21 0843 11/04/21 0733 PHVEN -- -- -- -- -- -- 7.09* [id number] -- -- -- -- -- -- 66* PO2VEN -- -- -- -- -- -- 31 IEH2YAZ -- -- -- -- -- -- 19.7 LACTATEVEN 0.5 0.9 1.7 0.8 0.9 < > 6.5* < > = values in this interval not displayed. Mixed Venous Sat No results for input(s): C1VDVO4 in the last 168 hours. Microbiology: Microbiology Results (Last 30 days) Procedure Component Value Units Date/Time Lower Respiratory Culture Tracheal Aspirate [[id number]] Collected: 11/06/21 1220 Lab Status: Preliminary result Specimen: Tracheal Aspirate Updated: 11/06/21 1431 Gram Stain -- Many Neutrophils seen Few squamous epithelial cells seen Many mixed bacterial morphotypes suggestive of normal upper respiratory al Blood culture [[id number]] Collected: 11/04/21 2250 Lab Status: Preliminary result Specimen: Blood from Hand, Right Updated: 11/06/21 2301 Blood Culture No growth at 2 days. Blood culture [[id number]] Collected: 11/04/21 2215 Lab Status: Preliminary result Specimen: Blood from Antecubital, Right Updated: 11/06/21 2301 Blood Culture No growth at 2 days. COVID-19 PCR [[id number]] Collected: 11/04/21 0735 Lab Status: Final result Specimen: Nasopharyngeal Swab Updated: 11/04/21 1246 SARS-CoV-2 RNA PCR Not Detected Comment: This result should be interpreted in combination with the clinical observations, patient history and epidemiological information. For testing of asymptomatic individuals, assay performance characteristics and clinical utility have not been evaluated. Testing for SARS-CoV-2 (Severe acute respiratory syndrome coronavirus 2, formerly known as 2019 novel coronavirus or 2019-nCoV) to aid in the diagnosis of COVID-19 is performed using the Simplexa COVID-19 Direct Assay by [employer] as authorized by the FDA issued Emergency Use Authorization (EUA). This assay is intended for In-vitro Diagnostic (IVD) use with nasopharyngeal swabs collected from individuals meeting the CDC criteria for testing. The assay is performed based on the instructions for use and additional guidance provided by the FDA. Testing is performed in the Microbiology Laboratory within the Department of Pathology and Laboratory Medicine at [facility], certified under the Clinical Laboratory Improvement Amendments of 1988 (CLIA), 42 U.S.C. section 263a, to perform high complexity tests. Assay performance has been verified according to clinical laboratory regulatory requirements. Test results are provided above. A result of Not Detected indicates that [...] test are highly dependent on disease prevalence. A result of Invalid indicates the inability to conclusively determine the presence or absence of SARS-CoV-2 RNA in the sample which can be due to a variety of factors. Recollection is recommended in the case of an invalid result. CDC COVID-19 criteria for testing on human specimens and clinical management guidance information are available at the CDC Coronavirus Disease 2019 (COVID-19) webpage under Information for Healthcare Professionals (https://www.cdc.gov/coronavirus/2019-ncov/hcp/index.html). Additional information about this and other EUA tests can be found in provider and patient fact sheets at the following FDA website: https://www.fda.gov/medical-devices/tfqhvlewpzg-mtslopj-1860-tdlvp-39-jqaufkpyw- gni-nnitrlvktoyloi-xjhjpdd-devices/ejglp-wkomxsiiasg-iuvr SARS-CoV-2 Source [employer] Swab Imaging: Results for orders placed or performed during the hospital encounter of 11/04/21 XR Chest One View (Exam End: 11/04/2021 10:09 AM) Impression Endotracheal tube terminates over the mid trachea. Thank you for letting us participate in the care of this patient. If you are a health care provider and have any questions regarding this report, please contact the number below. For patients who have questions please contact the health home day care provider that requested your imaging first. Abdomen 1 view (Generic) (Exam End: 11/04/2021 10:09 AM) Impression Orogastric tube placement, as above. Thank you for letting us participate in the care of this patient. If you are a health care provider and have any questions regarding this report, please contact the number below. For patients who have questions please contact the health home day care provider that requested your imaging first. Head wo Contrast (Generic) (Exam End: 11/04/2021 9:37 AM) Impression Diffuse cerebral edema consistent with the history. I have personally reviewed the image(s) and the resident's interpretation and agree with the findings, Alejo Garcia MD at 11/04/2021 9:55 AM Thank you for letting us participate in the care of this patient. If you are a health care provider and have any questions regarding this report, please contact the number below. For patients who have questions please contact the health home day care provider that requested your imaging first. Angiogram Chest for Pulmonary Embolus w Contrast (Exam End: 11/04/2021 9:37 AM) Impression 1. No pulmonary embolism identified. 2. Bibasilar atelectasis, particularly on the left where there is collapse of much of the left lower lobe. 3. Hazy opacities within the inferior left upper lobe are nonspecific and may be infectious or traumatic in nature. 4. Motion artifact or nondisplaced fracture of the mid sternum. Motion artifact is favored. Recommend clinical correlation. Thank you for letting us participate in the care of this patient. If you are a health care provider and have any questions regarding this report, please contact the number below. For patients who have questions please contact the health home day care provider that requested your imaging first. Chest One View (Exam End: 11/04/2021 8:22 PM) Impression 1. Lines and tubes as above. 2. Small left pleural effusion and left basilar atelectasis, compatible with expected postprocedural changes. I have personally reviewed the image(s) and the resident's interpretation and agree with the findings, Jennifer Bassett MD at 11/04/2021 8:53 PM Thank you for letting us participate in the care of this patient. If you are a health care provider and have any questions regarding this report, please contact the number below. For patients who have questions please contact the health home day care provider that requested your imaging first. Chest One View (Exam End: 11/05/2021 8:40 AM) Impression 1. Intra-aortic balloon pump marker is 1.8 cm below the aortic knob. 2. Slightly improved left basilar atelectasis and resolved left pleural effusion. I have personally reviewed the image(s) and the resident's interpretation and agree with the findings, Danielle Rausch MD at 11/05/2021 9:48 AM Thank you for letting us participate in the care of this patient. If you are a health care provider and have any questions regarding this report, please contact the number below. For patients who have questions please contact the health home day care provider that requested your imaging first. Chest One View (Exam End: 11/06/2021 6:36 AM) Impression * Equipment as above. * Mild pulmonary vascular congestion. Thank you for letting us participate in the care of this patient. If you are a health care provider and have any questions regarding this report, please contact the number below. For patients who have questions please contact the health home day care provider that requested your imaging first. Electronically signed by: Kimberley Pichardo MD, [facility] ([phone]), at 11/06/2021 6:47 AM Medications Scheduled Meds: ??? Vancomycin Level - MAR Order Reminder NOT APPLICABLE Once ??? enoxaparin 40 mg Subcutaneous Nightly ??? vancomycin 1.5 g Intravenous Once ??? LORazepam 1 mg Intravenous Q8H ??? lidocaine 3 patch Transdermal Q24H And ??? lidocaine 3 patch Transdermal Q24H ??? ceFEPime (Maxipime) 2g vial attach to sodium chloride 0.9% 100 mL Mini-Bag Plus 2 g [id number] ??? metroNIDAZOLE 500 mg Intravenous Q8H SONALI ??? shift total and Settings verification 1 each Intravenous 2 Times Daily - Shift Total ??? atorvastatin 40 mg Oral QPM ??? famotidine 20 mg Oral BID ??? chlorhexidine 15 mL Oral BID ??? white petrolatum-mineral oiL 1 each Both Eyes BID ??? sodium chloride 0.9 % (flush) 5 mL Intravenous BID ??? white petrolatum-mineral oiL Topical (Top) Q8H SONALI Continuous Infusions: ??? dexmedetomidine Stopped (11/06/211999) ??? fentaNYL 100 mcg/hr (11/07/21 06) ??? vasopressin Stopped (11/05/21 181) ??? NORepinephrine 0 mcg/min (11/07/21 0700) ??? propofoL 50 mcg/kg/min (11/07/21 07) ??? lidocaine (pf) 15 mL/hr at 11/05/21 0500 ??? nitroGLYcerin Stopped (11/04/212115) ??? sodium chloride 0.9% Stopped (11/04/21 2200) ??? niCARdipine 5 mg/hr (11/07/21 06) PRN Meds:.vancomycin- intermittent dosing per levels, midazolam (PF), fentaNYL AND [] fentaNYL AND fentaNYL AND shift total and Settings verification AND Assess, senna, polyethylene glycoL (MIRALAX) oral powder, propofoL AND propofoL, sodium chloride 0.9 % (flush), nitroGLYcerin, busPIRone, AMIOdarone, lidocaine (pf), nitroGLYcerin, sodium chloride 0.9%, iohexoL Assessment & Plan: Aniya Lundy is a 36 y.o. female with a history of tobacco use, hypertension on ZANE-I at home, anxiety, depression and recent COVID-19 infection (diagnosed 09/27/2021) who suffered an out of hospital VF arrest 11/04; with multiple subsequent VF arrests in CVCC and in cath labs on 11/04 found to have diffuse coronary and large vessel vasospasm. Currently etiology of large vessel vasospasm is unclear. Theres is some association with COVID and pt did notably smoke many cigarettes prior to event on 11/04 per collateral, which may have contributed to vasospasm however doesn't fully explain the extent she was witnessed to experience in both femoral and coronary vessels during Cath. Likely has been having some degree of vasospasm for a while, given has been having intermittent chest discomfort for a few months. Utox unremarkable aside from benzos which she is prescribed at home, however her sedation requirements are quite high suggesting she has developed some tolerance. Rheumatologic workup started; will reach out today regarding other recommendations. She continues to be febrile with increasing leukocytosis, most likely secondary to aspiration pna vs pneumonitis vs VAP given increase secretions and fio2 requirements overnight. Will continue to treat with with cefepime, vanc and metronidazole. Otherwise she is doing better from a hemodynamic standpoint today; no longer on pressors and with balloon pump removed, will continue nicardipine ggt fornow for vasospasm. Plan to wean sedation today and to continue to monitor neuro status; per Neuro recommend getting MRI brain wo and MRA wo to assess for any evidence of prior intracranial vasospasm. Plan: Neuro: #Targeted Temperature Management: - fentanyl weaned to 100; propofol 50; continue to wean - follow up Transcranial doppler - Continue EEG monitoring. Neuro following. - Consider MRA once stabilized. ?? CV: # Vasospasm # Cardiac Arrest - Continue with nicardipine 5 mg/hr; may wean to 2.5 later today. - Plan to eventually start high dose oral CCB - Off levo - Removed IABP yesterday - Starting statin (possible benefit to vasospasm) - d/c lidocaine - d/c amio - Will put on EPs radar for ICD. ?? Pulmonology: # Ventilated # concern for aspiration pna vs pneumonitis - Continue cefepime 1g QD - Continue metronidazole (anerobic coverage) - Continue Vanc - Peep 10 and FiO2 40% wean as tolerated - SBT ?? Renal: # JENNIFER - resolved - Good UOP. - Will diurese if needed. ?? Hematology #Anemia - Monitor hemoglobin ID: #concern for aspiration pna #fever - Continue cefepime 1g QD - Continue metronidazole (anerobic coverage) - Continue Vanc - IV tylenol prn for fever - Trend WBC ?? Psych: # Bipolar - Continue to hold home meds. ?? #Routine Diet: NPO diet (Give Meds) DVT Prophylaxis: heparin GI Prophylaxis: famotidine Code Status: Attempt Cardiopulmonary Resuscitation - Inpatient Dispo: Pending clinical course Shana Zurita MD Internal Medicine, PGY1 Cardiology, M1-S1, #[id number] 11/07/21 9:22 AM * Lori Gilbert RCP - 11/07/2021 5:10 AM EST AMV Protocol SBT Protocol: Yes Vent Settings: Ventilator Mode: SIMV (VC) + PS Tidal Volume Set: 440 Resp Rate Set: 14 PEEP Set: 10FiO2: 50 % Ventilator Measurements: Resp: 14 Vt Exhaled: 433 PIP: 26 MAP: 13 Plateau Press: 20 Ve: 6 PEEP: 11 cmH20 SpO2: 98 % EtCO2: 45 mmHg Airway: 7.5 @ 23 cm at the Teeth. Skin Integrity: WDL Breath Sounds: Diminished/clear Secretions: Small, thick, finley/white Assessment / Events / Plan of the Day: Received patient in SIMV-VC 440 / 14x / +10 / 60%. Peep increased to 12 and fio2 increased to 80% after a sustained drop in SPO2 at shift change. AB.24/42/80/17 Fio2 weaned to 70%. 7.25/40/117/17 Fio2 weaned to 50%. Peep weaned to 10. Will continue to monitor and wean as tolerated. Lori Gilbert RCP * Noah Deluna RRT - 11/06/2021 5:57 PM EST AMV Protocol: Yes SBT Protocol: Yes Vent Settings: Settings: Tidal Volume Set: 440 Resp. Rate Set: 14 PS Above PEEP (cm H2O): 12 Set PEEP (cm H2O): 10 Set FiO2: 61 % VT/K Inspiratory Time: 0.91 Sec(s) Measurements: Tidal Volume Measured Exp.: 431 Resp: 16 Peak Inspiratory Pressure: 22 Mean Airway Pressure (cm H2O): 12.7 Minute Ventilation Total Exhaled (L/min): 6.8 Plateau Pressure (cm H2O): 18 SpO2: 92 % ETCO2 (mmHg): 42 mmHg Airway: 7.5 @ 23 cm at the Teeth. Skin Integrity: WDL Breath Sounds: coarse at times Secretions: mod white Assessment / Events / Plan of the Day: Pt spent day on ventilator, attempted to wean to PSV however, pt still too asleep. Returned to SIMV as noted. Toward end of shift, Heathers vent support was increased due to desaturation and acidosis. Plan to rest over night. NOAH DELUNA RRT * Valorie Obrien MD - 11/06/2021 5:59 AM EST Images from the original note were not included. Cardiology ICU Progress Note I have seen and examined this patient and discussed with the internet assessor, resident, fellow. ??I agree with the plan noted ?? This is a 36 year old woman who has no known cardiac disease but this morning was heard moaning in bed after which her boyfriend returned to the bedroom and found her unresponsive. ??He administered CPR X approx 10 min. ??EMS arrived and found her in ventricular fibrillation (no strips available dafne reviewed) ??gave her one shock, began transport. ??Epi X 2 given with ROSC but no indication of meaningful response (mental status). ??Bedside echo by Dr. Alves was unremarkable. ?? She has a history of psychiatric disorders (bipolar) and is on several medications that can prolongthe QTc however review of her chart shows measures of ~ 480 or less. ??She presented to [facility] in Sep 2021 with chest pain but r/o for PR. ??She had COVID in 2020 (she was not vaccinated). ??See note below with history provided by Ms. Lundy's mother. ?? Initial venous pH 7.09 lactate 65. ??CK 135, d-dimer 5000 (r/o for PE), Serum creatinine 1.55 (baseline ~ 1.0), hemoglobin 12.4, platelets 298, WBC 25, AST 72 ??ALT 79. ??Troponin 0.02. ?? Shortly after 3 pm FridayNov 05, Dr. Marek Alves, community assistant was bedside when she again went into Vfib. ??While the etiology of her arrest is still not clear (she is at relatively low risk for obstructive coronary artery disease). There was severe spasm of her femoral artery when the catheter was introduced and similar effect when engaging her left main coronary artery and injection of contrast. She went into ventricular fibrillation several times and required shocks when this occurred. There was no clear obstructive CAD seen. The RCA was not studied due to repeated Vfib. ?? An IABP was placed and she was started on lidocaine and IVNTg which was then changed to IV nicardipine. She remained stable hemodynamically without pressors but IABP kept at 1:1. This was successfully weaned down and plan is to remove this morning. She is on pressure support with intubation. Morning labs (hemoglobin mildly low and serum creatinine normal). Lidocaine was turned off at 8 am. ?? Etiology of her cardiac arrest and Vfib as well as severe spasm of major arteries is unclear. We will continue to investigate and see if this could be a sequelae of recent COVID infection. We will also discuss with our electrophysiology team about ICD. ? Valorie Obrien MD, [place], [facility] Cardiology Attending? Patient info: Name: Aniya Lundy : 1985 PCP: Kenia Lawrence APRN PCP phone number: [phone] Date of Admission: 11/04/2021 ( Hospital Day 2 days ) Attending:Valorie Obrien MD ID: Aniya Lundy is a 36 y.o. female with a history of tobacco use, hypertension on ZANE-I at home, anxiety, depression and recent COVID-19 infection (diagnosed 09/27/2021) who suffered an out of hospital VF arrest 11/04; with multiple subsequent VF arrests in CVCC and in cath labs on 11/04 found to have diffuse coronary and large vessel vasospasm, on hospital day 2. Chief Complaint Patient presents with ??? Cardiac Arrest 24 Hour Events/Subjective: Yesterday: - Intubated and sedated. - Aortic balloon pump in place; on 1:1. - Continued on nicardipine; lidocaine and amio ggt, - Warmed yesterday afternoon; sedation weaned. - EEG no seizures; wnl. - Carotid doppler: no vasospasm - Transcranial doppler pending. - Afternoon: Became hypotensive to MAPs to high 50s; given 500 cc bolus - Bradycardic into 40s Overnight: --started norepi at 6, weaned down to 1 overnight -- desat to 80s, ETT suctioned up darkish sputum -- ABG 7.20/46/66/18 -- RR increased 18 , Peep increased 8, FiO2 50% This AM: -- Levo 2 this AM. -- Requiring fentanyl 200 + propofol 50 for sedation -- Sedation weaned; able to follow commands -- CVP 16, CO 8.1, CI 4,6 SVR 534 -- Aortic balloon pump: 1:3 tolerated for 30minutes. Vasoactive & Sedating Medications: Infusions: Continuous Infusions: ??? fentaNYL 200 mcg/hr (11/06/21 1000) ??? vasopressin Stopped (11/05/21 1814) ??? NORepinephrine 2 mcg/min (11/06/21 1000) ??? propofoL 50 mcg/kg/min (11/06/21 1001) ??? heparin (porcine) infusion Stopped (11/06/21 0759) ??? lidocaine (pf) 15 mL/hr at 11/05/21 0500 ??? nitroGLYcerin Stopped (11/04/216) ??? sodium chloride 0.9% Stopped (11/04/21 2200) ??? niCARdipine 5 mg/hr (11/06/21 1000) ??? AMIOdarone 0.501 mg/min (11/06/21 1000) Ventilator Settings: Mode: Servo U Ventilator Mode: VC, SET RR: TV: PEEP: FiO2: VARIABLES Tidal Volume Set: 440 Set PEEP (cm H2O): 8 Set FiO2: 50 % PATIENT RR: PIP: Pplateau: SpO2: OUTPUT Resp: 18 Peak Inspiratory Pressure: 23 Plateau Pressure (cm H2O): 18 SpO2: 99 % ABG (Arterial Blood Gas) Recent Labs 11/06/21 0746 11/06/21 0428 11/05/21 1653 11/05/21 1406 11/05/21 0805 PHART 7.29* 7.21* 7.36 7.26* 7.38 PIT2AOJ 40 46* 34* 46* 31* PO2ART 62* 66* 71* 85 92 OGJ9MCU 18.9* 18.1* 18.6* 20.1 17.5* LACTATEVEN 0.9 0.8 1.0 0.7 0.8 SEG1VBP 40 40 40 40 40 PFRATIOART2 155 165 178 212 230 VBG (Venous Blood Gas) Recent Labs 11/06/21 0746 11/06/21 0428 11/05/21 1653 11/05/21 1406 11/05/21 0805 11/04/21 0843 11/04/21 0733 PHVEN -- -- -- -- -- -- 7.09* JCP7FLN -- -- -- -- -- -- 66* PO2VEN -- -- -- -- -- -- 31 FCL9RTN -- -- -- -- -- -- 19.7 LACTATEVEN 0.9 0.8 1.0 0.7 0.8 < > 6.5* < > = values in this interval not displayed. Mixed Venous Sat No results for input(s): G3YKBY6 in the last 168 hours. Objective: Vitals Last value Range last 24 hrs Temperature Temp: 36.9 ??C (98.4 ??F) Temp: [35.7 ??C (96.3 ??F)-37.1 ??C (98.8 ??F)] Heart Rate Heart Rate: 54 Heart Rate: [42-98] Blood Pressure BP: 111/42 BP: -- Art Line BP BP (Arterial Line): 93/50 BP (Arterial Line): (77-116)/(39-67) MAP (NBP): -- Respiratory Rate Resp: 18 Resp: [9-24] SpO2 SpO2: 99 % SpO2: [91 %-100 %] Oxygen Delivery Oxygen Therapy O2 Device: Ventilator O2 Flow Rate (L/min): 50 L/min FiO2 (%): 50 % Intake/Output Summary (Last 24 hours) at 11/06/2021 1015 Last data filed at 11/06/2021 1000 Gross per 24 hour Intake 4348.02 ml Output 2280 ml Net 2068.02 ml Patient Vitals for the past 168 hrs: Weight 11/04/21 0723 70 kg (154 lb 5.2 oz) Admit wt: 70 kg Physical Exam: Gen: in bed, intubated. Sedated. HEENT: anicteric, pupils reactive. ETT in place. CV: bradycardic, regular. No murmurs appreciated. Resp: Ventilated breath sounds bilaterally, coarse. Abd: normal bowel sounds, soft, non-tender, non-distended. Neuro: Follow commands, Moves extremities spontaneously. Lines/Drains/Airways - ETT - central line - [place] - LDA Cath/EP sheath - Intra-aortic balloon pump - A-line - peripheral ivs x2 Labs: Recent Labs 11/06/21 04211/05/21 0108 11/04/21 1530 11/04/21 0735 WBC 17.0* 11.8* 16.8* 25.6* HGB 9.2* 9.7* 11.0* 12.9 HCT 28.5* 30.9* 34.9* 43.1 PLATELET 156 185 230 298 MCV 84.3 82.8 82.5* 86.9 Recent Labs 11/06/2142411/05/21 1406 11/05/21 0108 11/04/21 0735 NA 138 137 137 140 CL 108* 108* 110* 104 CO2 19* 19* 19* 19* K 4.5 4.3 4.0 5.1* MAGNESIUM -- 0.99 0.80 1.04 PHOS -- -- 2.9 6.2* CALCIUM 7.8* 7.7* 7.7* 9.4 BUN 14 15 17 20* CREATININE 1.34* 1.17 0.78 1.55* LFTs Recent Labs 11/06/2142411/04/21 0735 PROT 5.3* 6.8 ALBUMIN 3.3 4.4 AST 107* 72* ALT 64* 79* ALKPHOS 61 88 BILITOT 0.2 0.2 BILIDIR 0.2 -- Coags Recent Labs 11/06/2142422 0735 INR 1.1 -- PT 12.4 -- DDIMER -- 5,001* Cardiac Enzymes Recent Labs 11/05/21 0627 11/05/21 0108 11/04/21 1300 11/04/21 0735 CK -- -- -- 135 TROPONINT 0.06* 0.07* 0.24* 0.02* Endocrine Recent Labs 04/23/21 1910 TSH 1.97 Recent Labs 11/04/21 1454 POCGLU 94 Heme No results for input(s): LDH, HAPTOGLOBIN, URICACID in the last 168 hours. ABG (Arterial Blood Gas) Recent Labs 11/06/21 0746 11/06/21 0428 11/05/21 1653 11/05/21 1406 11/05/21 0805 PHART 7.29* 7.21* 7.36 7.26* 7.38 JRI7CBT 40 46* 34* 46* 31* PO2ART 62* 66* 71* 85 92 WVT2OCW 18.9* 18.1* 18.6* 20.1 17.5* LACTATEVEN 0.9 0.8 1.0 0.7 0.8 COK2EWO 40 40 40 40 40 PFRATIOART2 155 165 178 212 230 VBG (Venous Blood Gas) Recent Labs 11/06/21 0746 11/06/21 0428 11/05/21 1653 11/05/21 1406 11/05/21 0805 11/04/21 0843 11/04/21 0733 PHVEN -- -- -- -- -- -- 7.09* IAO3PDT -- -- -- -- -- -- 66* PO2VEN -- -- -- -- -- -- 31 VPP4KOM -- -- -- -- -- -- 19.7 LACTATEVEN 0.9 0.8 1.0 0.7 0.8 < > 6.5* < > = values in this interval not displayed. Mixed Venous Sat No results for input(s): W7KIRY7 in the last 168 hours. Microbiology: Microbiology Results (Last 30 days) Procedure Component Value Units Date/Time Blood culture [[id number]] Collected: 11/04/21 2250 Lab Status: Preliminary result Specimen: Blood from Hand, Right Updated: 11/05/21 230 Blood Culture No growth at 1 day. Blood culture [[id number]] Collected: 11/04/21 2215 Lab Status: Preliminary result Specimen: Blood from Antecubital, Right Updated: 11/05/21 2301 Blood Culture No growth at 1 day. COVID-19 PCR [[id number]] Collected: 11/04/21 0735 Lab Status: Final result Specimen: Nasopharyngeal Swab Updated: 11/04/21 1246 SARS-CoV-2 RNA PCR Not Detected Comment: This result should be interpreted in combination with the clinical observations, patient history and epidemiological information. For testing of asymptomatic individuals, assay performance characteristics and clinical utility have not been evaluated. Testing for SARS-CoV-2 (Severe acute respiratory syndrome coronavirus 2, formerly known as 2019 novel coronavirus or 2019-nCoV) to aid in the diagnosis of COVID-19 is performed using the Simplexa COVID-19 Direct Assay by [employer] as authorized by the FDA issued Emergency Use Authorization (EUA). This assay is intended for In-vitro Diagnostic (IVD) use with nasopharyngeal swabs collected from individuals meeting the CDC criteria for testing. The assay is performed based on the instructions for use and additional guidance provided by the FDA. Testing is performed in the Microbiology Laboratory within the Department of Pathology and Laboratory Medicine at [facility], certified under the Clinical Laboratory Improvement Amendments of 1988 (CLIA), 42 U.S.C. section 263a, to perform high complexity tests. Assay performance has been verified according to clinical laboratory regulatory requirements. Test results are provided above. A result of Not Detected indicates that [...] test are highly dependent on disease prevalence. A result of Invalid indicates the inability to conclusively determine the presence or absence of SARS-CoV-2 RNA in the sample which can be due to a variety of factors. Recollection is recommended in the case of an invalid result. CDC COVID-19 criteria for testing on human specimens and clinical management guidance information are available at the CDC Coronavirus Disease 2019 (COVID-19) webpage under Information for Healthcare Professionals (https://www.cdc.gov/coronavirus/2019-ncov/hcp/index.html). Additional information about this and other EUA tests can be found in provider and patient fact sheets at the following FDA website: https://www.fda.gov/medical-devices/jlhxkzrmujl-eloyfcf-3421-xyrqa-83-thsxrnnwm- svh-bkzwpnnbcngemc-mwtsscw-devices/jqwid-bluvxsxikfw-dxpk SARS-CoV-2 Source [employer] Swab Imaging: Results for orders placed or performed during the hospital encounter of 11/04/21 XR Chest One View (Exam End: 11/04/2021 10:09 AM) Impression Endotracheal tube terminates over the mid trachea. Thank you for letting us participate in the care of this patient. If you are a health care provider and have any questions regarding this report, please contact the number below. For patients who have questions please contact the health home day care provider that requested your imaging first. Abdomen 1 view (Generic) (Exam End: 11/04/2021 10:09 AM) Impression Orogastric tube placement, as above. Thank you for letting us participate in the care of this patient. If you are a health care provider and have any questions regarding this report, please contact the number below. For patients who have questions please contact the health home day care provider that requested your imaging first. Head wo Contrast (Generic) (Exam End: 11/04/2021 9:37 AM) Impression Diffuse cerebral edema consistent with the history. I have personally reviewed the image(s) and the resident's interpretation and agree with the findings, Alejo Garcia MD at 11/04/2021 9:55 AM Thank you for letting us participate in the care of this patient. If you are a health care provider and have any questions regarding this report, please contact the number below. For patients who have questions please contact the health home day care provider that requested your imaging first. Angiogram Chest for Pulmonary Embolus w Contrast (Exam End: 11/04/2021 9:37 AM) Impression 1. No pulmonary embolism identified. 2. Bibasilar atelectasis, particularly on the left where there is collapse of much of the left lower lobe. 3. Hazy opacities within the inferior left upper lobe are nonspecific and may be infectious or traumatic in nature. 4. Motion artifact or nondisplaced fracture of the mid sternum. Motion artifact is favored. Recommend clinical correlation. Thank you for letting us participate in the care of this patient. If you are a health care provider and have any questions regarding this report, please contact the number below. For patients who have questions please contact the health home day care provider that requested your imaging first. Chest One View (Exam End: 11/04/2021 8:22 PM) Impression 1. Lines and tubes as above. 2. Small left pleural effusion and left basilar atelectasis, compatible with expected postprocedural changes. I have personally reviewed the image(s) and the resident's interpretation and agree with the findings, Jennifer Bassett MD at 11/04/2021 8:53 PM Thank you for letting us participate in the care of this patient. If you are a health care provider and have any questions regarding this report, please contact the number below. For patients who have questions please contact the health home day care provider that requested your imaging first. Chest One View (Exam End: 11/05/2021 8:40 AM) Impression 1. Intra-aortic balloon pump marker is 1.8 cm below the aortic knob. 2. Slightly improved left basilar atelectasis and resolved left pleural effusion. I have personally reviewed the image(s) and the resident's interpretation and agree with the findings, Danielle Rausch MD at 11/05/2021 9:48 AM Thank you for letting us participate in the care of this patient. If you are a health care provider and have any questions regarding this report, please contact the number below. For patients who have questions please contact the health home day care provider that requested your imaging first. Chest One View (Exam End: 11/06/2021 6:36 AM) Impression * Equipment as above. * Mild pulmonary vascular congestion. Thank you for letting us participate in the care of this patient. If you are a health care provider and have any questions regarding this report, please contact the number below. For patients who have questions please contact the health home day care provider that requested your imaging first. Electronically signed by: Kimberley Pichardo MD, [facility] ([phone]), at 11/06/2021 6:47 AM Medications Scheduled Meds: ??? ceFEPime 1 g Intravenous Q8H ??? [START ON 11/07/2021] Vancomycin Level - MAR Order Reminder NOT APPLICABLE Once ??? acetaminophen 1,000 mg Oral Q8H SONALI Or ??? acetaminophen 1,000 mg Oral Q8H SONALI Or ??? acetaminophen 975 mg Rectal Q8H SONALI ??? shift total and Settings verification 1 each Intravenous 2 Times Daily - Shift Total ??? atorvastatin 40 mg Oral QPM ??? famotidine 20 mg Oral BID ??? chlorhexidine 15 mL Oral BID ??? white petrolatum-mineral oiL 1 each Both Eyes BID ??? sodium chloride 0.9 % (flush) 5 mL Intravenous BID ??? white petrolatum-mineral oiL Topical (Top) Q8H SONALI Continuous Infusions: ??? fentaNYL 200 mcg/hr (11/06/21 1000) ??? vasopressin Stopped (11/05/21 1814) ??? NORepinephrine 2 mcg/min (11/06/21 1000) ??? propofoL 50 mcg/kg/min (11/06/21 1001) ??? heparin (porcine) infusion Stopped (11/06/21 0709) ??? lidocaine (pf) 15 mL/hr at 11/05/21 0500 ??? nitroGLYcerin Stopped (11/04/216) ??? sodium chloride 0.9% Stopped (11/04/210) ??? niCARdipine 5 mg/hr (11/06/21 1000) ??? AMIOdarone 0.501 mg/min (11/06/21 1000) PRN Meds:.vancomycin- intermittent dosing per levels, Vancomycin Level - MAR Order Reminder, midazolam (PF), fentaNYL AND [] fentaNYL AND fentaNYL AND shift total and Settings verification AND Assess, senna, polyethylene glycoL (MIRALAX) oral powder, propofoL AND propofoL, sodium chloride 0.9 % (flush), nitroGLYcerin, busPIRone, heparin (porcine) AND heparin (porcine) infusion, AMIOdarone, lidocaine (pf), nitroGLYcerin, sodium chloride 0.9%, iohexoL Assessment & Plan: Aniya Lundy is a 36 y.o. female with a history of tobacco use, hypertension on ZANE-I at home, anxiety, depression and recent COVID-19 infection (diagnosed 09/27/2021) who suffered an out of hospital VF arrest 11/04; with multiple subsequent VF arrests in CVCC and in cath labs on 11/04 found to have diffuse coronary and large vessel vasospasm. Currently etiology of large vessel vasospasm is unclear. Theres is some association with COVID and pt did notably smoke many cigarettes prior to event on 11/04 per collateral, which may have contributed to vasospasm however doesn't fully explain the extent she was witnessed to experience in both femoral and coronary vessels during Cath. Likely has been having some degree of vasospasm for a while, given has been having intermittent chest discomfort for a few months. Utox unremarkable aside from benzos which she is prescribed at home, however her sedation requirements are quite high suggesting she has developed some tolerance. Rheumatologic workup started; will reach out today regarding other recommendations. Pt is doing better from a hemodynamic standpoint today; will continue nicardipine ggt for now, willremove balloon pump, and hopefully be able to wean levo as sedation is weaned as well. Will continue to monitor neuro status; neurology follow. Plan: Neuro: #Targeted Temperature Management: - Continue propofol/fentanyl. No sedation wean today - follow up Transcranial doppler - Continue EEG monitoring. Neuro following. - Consider repeat Head CT vs MRA once stabilized. ?? CV: # Vasospasm # Cardiac Arrest - Continue with nicardipine 5 mg/hr; may wean to 2.5 later today. - Plan to eventually start high dose oral CCB - Wean levo as tolerated - Remove IABP later today - Starting statin (possible benefit to vasospasm) - d/c lidocaine this morning. - continue amiodarone 1 mg/min. - Will put on EPs radar for ICD. ?? Pulmonology: # Ventilated # concern for aspiration pna - Continue cefepime 1g QD - Continue Vanc - Minimal vent settings and doing well. - SBT ?? Renal: # JENNIFER - resolved - Good UOP. - Will diurese if needed. ?? Hematology #Anemia - Monitor hemoglobin ?? ID: - No evidence of infection ?? Psych: # Bipolar - Continue to hold home meds. ? #Routine Diet: NPO diet (Give Meds) DVT Prophylaxis: heparin GI Prophylaxis: famotidine Code Status: Attempt Cardiopulmonary Resuscitation - Inpatient Dispo: Pending clinical course Shana Zurita MD Internal Medicine, PGY1 Cardiology, M1-S1, #[id number] 11/06/21 10:15 AM * Kilo Azul, RT - 11/06/2021 4:48 AM EST Vent Settings: Ventilator Mode: VC Tidal Volume Set: 440 Resp Rate Set: (S) 18 PEEP Set: (S) 8 FiO2: (S) 50 % Ventilator Measurements: Resp: 19 Vt Exhaled: 10 PIP: 23 MAP: 18.6 Plateau Press: 18 Ve: 8.1 PEEP: 5.2 cmH20 SpO2: 98 % EtCO2: 43 mmHg Airway: 7.5 @ 23 cm at the Teeth. Skin Integrity: WDL Breath Sounds: rhonchi Secretions: moderate thick finley Assessment / Events / Plan of the Day: Pt received on VC 440 x 14 peep 5 40% ABG 7.20/46/66/18 RR increased 18 , Peep increased 8, FiO2 50% Pt having increased secretions overnight RT SHAHID * Johanne Tobias, RN - 11/05/2021 8:15 PM EST Per shift report, Rn neuro exam for 1999 Pt on minimal sedation for exam. Pt did wake on Prop of 50 and fentanyl of 150. Pt with eyes open. Eyes intermittently appears to be rolled back. Pupils 2mm KAE. Pt attempting to sit up, reach towards face. Pt unable to focus. Pt unable to follow commands. Some question of following commands with right hand squeeze. Pt able to move all extremities (not on command). Pt intermittently blinked eyes with snapping. Pt with gag reflex. Wall the vent. Will cont to monitor * Binh Breen RT - 11/05/2021 6:25 PM EST 1720: Transitioned to SIMV at 8cc/kg, per Apneic periods with altered sedation. RT Zackary * Tameka Spann MD - 11/05/2021 11:06 AM EST CRITICAL CARE ATTENDING PROGRESS NOTE ASSESSMENT, MANAGEMENT, and DECISION MAKING: NEURO: Ongoing targeted temperature management. Continue sedation during this period. EEG interpretation noted. Appreciate neurology team's input, following recommendations. Head CT noted, with diffuse findings. Would aim to repeat this in the near future. RESP: Supportive ventilator settings. CV: Ongoing administration of vasodilator therapy, although intermittent need for supporting perfusion pressure with vasopressor support. Continue with intra- aortic balloon pump. Rhythm control with amiodarone and lidocaine. GI: Prophylaxis needed. HEME: Heparin anticoagulation. Patient seen and examined. Aniya Lundy is a 36 y.o. female has issues that include: Active Hospital Problems Diagnosis ??? Coronary artery vasospasm ??? *History of COVID-19 ??? Cardiac arrest ??? Post-traumatic stress disorder, chronic ??? Borderline personality disorder ??? Anxiety disorder, unspecified The patient is a 34-year-old woman who presented with worsening anxiety surrounding nonspecific somatic complaints such as full body tingling. She has a number of existing medical issues such as HTN,asthma, and GERD, the symptoms of which (e.g. heartburn, cough) tend to provoke her anxiety. ??? Depression ??? Asthma Rx PRN albuterol Pulmonary workup negative 2007 (in [facility]) ??? Hypertension Onset 2013, variable BP highs of 160-170 systolic, then normal Resolved Hospital Problems No resolved problems to display. Active Non-Hospital Problems Diagnosis ??? Gastroesophageal reflux disease Added automatically from request for surgery [id number] ??? Chest pain ETT 2013- negative ST III Echo 2013 ??Normal LV size and function, trivial TR, mild PI ??? Skin disease ??? Anxiety ??? Tachycardia EXAM: Temp: [35.5 ??C (95.9 ??F)-37.2 ??C (99 ??F)] Heart Rate: [46-128] Resp: [11-74] BP: (93-111)/(42-56) SpO2: [96 %-100 %] Heart Rate from SpO2: [47 bpm-94 bpm] Physical Exam Constitutional: Appearance: Normal appearance. Interventions: She is sedated and intubated. Eyes: Pupils: Pupils are equal, round, and reactive to light. Cardiovascular: Rate and Rhythm: Normal rate. Pulmonary: Effort: She is intubated. Breath sounds: Normal breath sounds. Body mass index is 26.48 kg/m??. IS PATIENT CRITICALLY ILL ? Is there a high potential of sudden, clinically significant, or life threatening deterioration? Yes Is there a need for direct personal assessment and management to treat/prevent multiple vital organfailure/deterioration? Yes PATIENT IS CRITICALLY ILL WITH THESE DIAGNOSES BEING MANAGED: Cardiac Arrest Ventricular fibrillation Coma Respiratory Failure Acute with hypoxia Acute with hypercapnia I personally performed 30 minutes of aggregate critical care time exclusive of procedures and teaching. This includes time spent during direct patient evaluation and reassessment, interpreting diagnostic tests, directing life and/or organ supporting interventions and documentation on the unit. Timenoted does not include overlapping time with other physicians or associate providers. * Valorie Obrien MD - 11/05/2021 8:07 AM EST Inpatient Cardiology Progress Note I have seen and examined this patient and discussed with the internet assessor, resident, fellow. I agree withthe plan noted ?? This is a 36 year old woman who has no known cardiac disease but this morning was heard moaning in bed after which her boyfriend returned to the bedroom and found her unresponsive. He administered CPR X approx 10 min. EMS arrived and found her in ventricular fibrillation (no strips available to be reviewed) gave her one shock, began transport. Epi X 2 given with ROSC but no indication of meaningful response (mental status). Bedside echo by Dr. Alves was unremarkable. ?? She has a history of psychiatric disorders (bipolar) and is on several medications that can prolongthe QTc however review of her chart shows measures of ~ 480 or less. She presented to [facility] in Sep 2021 with chest pain but r/o for PR. She had COVID in 2020 (she was not vaccinated). See note below with history provided by Ms. Lundy's mother. ?? Initial venous pH 7.09 lactate 65. CK 135, d-dimer 5000 (r/o for PE), Serum creatinine 1.55 (baseline ~ 1.0), hemoglobin 12.4, platelets 298, WBC 25, AST 72 ALT 79. Troponin 0.02. ?? Shortly after 3 pm FridayNov 05, Dr. Marek Alves, community assistant was bedside when she again went into Vfib. While the etiology of her arrest is still not clear (she is at relatively low risk for obstructive coronary artery disease). There was severe spasm of her femoral artery when the catheter wasintroduced and similar effect when engaging her left main coronary artery and injection of contrast. She went into ventricular fibrillation several times and required shocks when this occurred. Therewas no clear obstructive CAD seen. The RCA was not studied due to repeated Vfib. An IABP was placed and she was started on lidocaine and IVNTg which was then changed to IV nicardipine. She remained stable hemodynamically without pressors but IABP kept at 1:1. She was on pressure support with intubation. Morning labs (hemoglobin mildly low and serum creatinine normal). Etiology of her cardiac arrest and Vfib as well as severe spasm of major arteries is unclear. We will continue to investigate and see if this could be a sequelae of recent COVID infection. We will also discuss with our electrophysiology team about ICD. ?? Valorie Obrien MD, Naye, [facility] Cardiology Attending ?? Admit Date: 11/04/2021 Aniya Lundy is a 36 y.o. female With history of bipolar disorder and recent COVID who presented with cardiac arrest with subsequent repeat arrest with transient ST elevations followed by VT/VF arrest who was found to have diffuse vasospasm in all arterial beds on [facility] undergoing hypothermia protocol and on treatment for vasospasm. Interval events / Subjective: - Started on nicardipine post-cath. - [facility] with IABP and PAC placement. - Vascular seen, noted likely vasospasm - Episode of eyes twitching overnight, on seizures on EEG Allergies: Allergies Allergen Reactions ??? Augmentin [Amoxicillin-Pot Clavulanate] Rash Unsure if allergic ??? Ipratropium Other (See Comments) ??? Morphine Other (See Comments) Cannot recall ??? Penicillins Rash ??? Seroquel [Quetiapine] Other (See Comments) Made head feel loopy. Vitals: Afebrile,89/42 (66), 50-57 97-100% IABP 1:1, Augmented to 90 CVP 14 PA CO 3.9 CI 2.2 SVR 1100 PVR 1.3 NORRIS HELENE 0.92 Vent PS: 12/5, 40% (15) breathing at 12-13 7.38/30/92 I's and O's: Intake/Output Summary (Last 24 hours) at 11/05/2021 0807 Last data filed at 11/05/2021 0658 Gross per 24 hour Intake 1360.96 ml Output 1990 ml Net -629.04 ml Weights: Patient Vitals for the past 168 hrs: Weight 11/04/21 0723 70 kg (154 lb 5.2 oz) Lines: 2 PIVs R fem venous sheath R fem IABP R IJ PAC and 9 fr sheath Examination: General: Intubated, sedated Neck: Supple, R IJ C/D/I Cardiac: Regular rate and rhythm, S1/S2 auscultated. IABP noted. Respiratory: Mechanical ventilation Abdomen: Soft, nondistended Extremities: Warm and well perfused, no lower extremity edema Vascular: Palpable radial pulses bilaterally, palpable DP pulses bilaterally Neuro: Alert and oriented, no gross focal defects Skin: Warm, dry, and intact Psych: Normal affect Labs: CBC: Recent Labs 11/05/21 0108 11/04/21 1530 11/04/21 0735 WBC 11.8* 16.8* 25.6* HGB 9.7* 11.0* 12.9 PLATELET 185 230 298 Chemistry: Recent Labs 11/05/21 0108 11/04/21 0735 10/10/21 1721 NA 137 140 139 K 4.0 5.1* 3.6 CL 110* 104 103 CO2 19* 19* 21* BUN 17 20* 12 CREATININE 0.78 1.55* 0.92 GLUCOSE 104 196 111 Recent Labs 11/05/21 0108 11/04/21 0735 10/10/21 1721 CALCIUM 7.7* 9.4 9.2 MAGNESIUM 0.80 1.04 -- PHOS 2.9 6.2* -- LFT's: Recent Labs 11/04/21 0735 10/10/21 1721 04/23/21 1910 BILITOT 0.2 0.2 0.2 BILIDIR -- <0.2 -- ALBUMIN 4.4 4.5 4.2 ALKPHOS 88 84 74 ALT 79* 29 14 AST 72* 16 13 Coags: Recent Labs 11/04/21 0735 DDIMER 5,001* Cardiac enzymes: Recent Labs 11/05/21 0627 11/05/21 0108 11/04/21 1300 11/04/21 0735 TROPONINT 0.06* 0.07* 0.24* 0.02* CK -- -- -- 135 Medications: Nicardipine 5 mg/hr Amiodarone 1 mg/min Lidocaine 1 mg/min Heparin drip Propofol 50 mcg/kg/min Fentanyl 200 mcg/kg/min Echocardiogram: SUMMARY: ?? 1. The left ventricular chamber size is [...] study dated 07/04/16, there is no significant Change. LHC: Mild left coronary disease, diffuse vasospasm. Assessment: Aniya Lundy is a 36 y.o. female with history of bipolar and recent COVID who presents for cardiac arrest found to have diffuse vasospasm. Plan: Neuro: #Targeted Temperature Management: - Continue propofol/fentanyl. No sedation wean today until rewarmed tomorrow morning. - Continue EEG monitoring. Neuro following. CV: # Vasospasm # Cardiac Arrest - Continue with nicardipine 5 mg/hr. - Continue IABP for now. - Starting statin (possible benefit to vasospasm) - Continue lidocaine at 1 mg/min, amiodarone 1 mg/min. - Will put on EPs radar for ICD. Pulmonology: # Ventilated - Minimal vent settings and doing well. - SBT tomorrow after rewarming and awakening trial. Renal: # JENNIFER - resolved - Good UOP. - Will diurese if needed. Hematology #Anemia - Monitor hemoglobin ID: - No evidence of infection Psych: # Bipolar - Continue to hold home meds. Case discussed with cardiology attending who agrees with plan. F: Monitor E: Monitor and replete N: Holding while TTM DVT: On heparin drip for IABP GI: Holding Jerrod Muse MD 11/05/2021 * Frances Alatorre MD - 11/05/2021 1:41 AM EST EEG Update: Called by staff regarding an episode of eye movements and bilateral arm flexing occurring around 00:55. There was no evidence of a seizure during this time or throughout the EEG thus far. Based on the EEG, this was a normal arousal pattern. There was also a push button at 01:40 at the time of a brief jerking movement. The EEG was also unchanged during this event. No seizures captured thus far. Frances Alatorre MD Clinical Neurophysiology Fellow, PGY-6 * Richard Asher - 11/05/2021 1:36 AM EST Post Cath Note S: Patient intubated and sedated. Presence of IABP through right femoral artery. O: Tc: 36.1 BP: 106/44 HR: 59 R: 17 SpO2: 97 % on Vent General: Lying in bed intubated and sedated. Groin: Right femoral access site with presence of catheter associated with IABP intact. Blood notednear the insertion site but no bruising. Did not palpate the femora pulse due to concerns of compromising the pump. Ext: RLE well perfused and warm to the touch A/P: s/p cath with residual catheter insertion in the right femoral artery for IABP. No obvious bruisingat site. Associated attestation - Valorie Obrien MD - 11/05/2021 8:28 AM EST I have seen and examined this patient and agree with the clinic note, assessment and plan. I have discussed with Service CHRISTIAN Valorie Obrien MD, Naye, FACC, FNLA Cardiology Service Attending * Johanne Tobias RN - 11/05/2021 1:15 AM EST Neuro team paged Pt arms flexed bilaterally while head slightly moved side to side. Also noted were her eyes: they were open, looking upward and rhythmically went side to side with an occasional bounce of up and down. Episode lasted just shy of a minute * Bo Glaser RN - 11/04/2021 8:00 PM ESTSummary: End of shift Pt arrived from ER, placed on cooling pads, moving all extremeties w/o purpose. Pt had cooling padsplaced, VSS. @ 1540, pt went into a junctional rhythm with pregressively larger t waves. Pt progressed and went into vtach with pulse, rn notified unit, pt was then shocked x2, vfib w/o pulse. CPR started, 1 round with epi and amio IVP. Pulse check @ 2min showed rhythm with pulse, amio @ 1 started,heparin @ 850 started. Pt was then taken to label remover. Upon arrival back to unit, unable to dopple rt pedal pulse. Team notified, vascular and label remover team consulted, unable to doppel pulses in RTLE.central supply technician notified. Xrays ordered for swan/ett/IABP placement/confirmation. * Frances Alatorre MD - 11/04/2021 6:03 PM EST Preliminary EEG Report: This EEG is abnormal due to the presence of a continuous alpha and excessive beta background pattern overriding delta waves without clear anterior posterior gradient. No seizures or epileptiform discharges captured thus far. Overall this EEG is suggestive of a moderate nonspecific cerebral dysfunction in the setting of medication effect. The EEG was connected only briefly before the patient was take to the label remover. Full report to follow in the morning. Frances Alatorre MD Clinical Neurophysiology Fellow * Carolina Moseley RCP - 11/04/2021 3:30 PM EST Respiratory Care Mechanical Ventilation Note Protocol: AMV SBT: Yes SPO2 Goal: Saturation Goal: > 92% Vent Mode: Volume Control Circuit: HME Settings: Tidal Volume Set: 460 Resp. Rate Set: (S) 18 Set PEEP (cm H2O): 5 Set FiO2: 60 % VT/K.3 Inspiratory Time: 0.9 Sec(s) Measurements: Tidal Volume Measured Exp.: 456 Resp: 18 Peak Inspiratory Pressure: 18 Mean Airway Pressure (cm H2O): 8.2 Minute Ventilation Total Exhaled (L/min): 7.4 Plateau Pressure (cm H2O): 18 SpO2: 100 % ETCO2 (mmHg): 36 mmHg Airway: Size: 7.5 ETT Depth: 23 cm @ teeth/gums. Cuff Pressure: mov Assessment: Pt arrived to ED on NRB s/p VF arrest. Intubated with 7.5 ETT for airway protection. Placed on VC 460 x 16, PEEP 5, 100%. Pt to CT on the vent. FIO2 weaned to 50%. RR increased to 18 per ABG. Pt transported to [facility] [address] CAROLINA MOSELEY RCP * Haley Murphy, [facility] - 11/04/2021 9:16 AM EST Social Work Note: ED CHUCK SPLITTER spoke with Zay Lozano via phone [phone]. Blake shared he feels traumatized by the events of the morning and is feeling understandably veryworried about Aniya. Dk shared that Aniya woke him early this morning and said she didn't feel right, he went to get her a wet washcloth and when he came back into the room she was unresponsive. Dk states he called 911 and they talked him through CPR which he need for 10 minutes prior to EMS arriving. Dk expressing anxiety that he may have hurt Aniya's ribs or sternum and understandably worrying he didn't do enough. Provided validation and support to Blake and noted he did everything he could in the moment and responded quickly and appropriately. Discussed responses to traumatic situations and explored ways Blake adrianne with difficult situation. Blake states he feels likehe needs to keep talking about it and is on his way to Aniya's family to be with them. Dk understands Aniya is being transferred to the ICU and that the medical team will update him later. States MD has told him Aniya will need to be monitored for a period of time before the medical team have more information. Dk notes that his Father from a brain aneurysm and that he feels very anxious that Aniya's brain may have been damaged. Validated the stress and worry of waiting and the unknown, encouraged self care and let Dk know I would call back later today to check in. Assessment: Understandably distressed Fiance who provided CPR to ptJosse Lozano is currently trying toprocess the events of today and tolerate understandable anxiety and stress. Engaged easily with this short story writer and was welcoming of support. HAROON Subramanian, [facility] Clinical Cyber Defense Forensics Analyst Office of Care Management [phone] #[id number] documented in this encounter H&P Notes * Valorie Obrien MD - 11/04/2021 3:36 PM EST Images from the original note were not included. Aniya Lundy is a 36 y.o. female who presents with OOH VF arrest. Please see my H&P from earlier today for details. Around 15:12 today, patient's telemetry showed junctional rhythm with ST elevation in lead II. Shortly after, she went into pulseless VT and VF. She immediately received 2 shocks at 200J without successful ROSC. She then received 2 minutes of chest compressions, bolus of amiodarone 300mg and another shock which resulted in normal sinus rhythm, resolution of ST elevation and normal hemodynamics. Post-ROSC ECG showed normal sinus rhythm without ESTER. No outpatient medications have been marked as taking for the 11/04/21 encounter (Hospital Encounter). BP 116/61 Pulse 71 Temp 36.9 ??C (98.4 ??F) Resp 18 Ht 162.6 cm (5' 4.02) Wt 70 kg (154 lb 5.2 oz) SpO2 100% BMI 26.48 kg/m?? PE NAD CV: RRR, S1 S2 physiologic, JVP estimated @ cm H2O Pulm: Non-labored, CTAB, no w/r/r Abd: soft, NT, ND, +BS, no bruits Vasc: 2+ bilat radial with favorable Kp's test on the R, 2+ bilat femoral pulses w/o bruits, 2+ bilat DP pulses Extr: wwp, no edema ASA: 4: Patient with severe systemic disease that is a constant threat to life Mallampati: intubated Labs reviewed and notable for: Lab Results Component Value Date WBC 25.6 (H) 11/04/2021 HGB 12.9 11/04/2021 HCT 43.1 11/04/2021 MCV 86.9 11/04/2021 PLATELET 298 11/04/2021 Lab Results Component Value Date CREATININE 1.55 (H) 11/04/2021 BUN 20 (H) 11/04/2021 NA 140 11/04/2021 K 5.1 (H) 11/04/2021 CL 104 11/04/2021 CO2 19 (L) 11/04/2021 A/P 36 y.o. female here for VT/VF arrest. She had the first event at home and another in CV. On telemetry, her polymorphic VT then VF was preceded by ST elevation and junctional rhythm. Post-ROSC, she had resolution of ST elevation and ECG was also unremarkable. Given these findings, there is a high suspicion for underlying coronary spasm. Less likely SCAD or plaque rupture given resolution of ST changes. I spoke to her mother Shannon again after the arrest. Shannon also talked to some of her family membersafter our last conversation and found out that there are some relatives who had heart attacks as early as in their 20s and up to age 50s. However, Aniya does not have any first degree relatives with PR history. The indications, expected benefits, and potential risks of diagnostic or therapeutic catheterization were reviewed in detail with the patient's mother. The potential for , myocardial infarction,arrhythmias, stroke, kidney failure, hemorrhage, allergic reaction to contrast, vascular complications and infection were reviewed in detail. The possibility of stenting and other percutaneous intervention, with associated risk, was reviewed. The possible need for emergent coronary artery bypass surgery was reviewed. Alternatives were discussed and the patient's questions were answered. Followingthis discussion, patient's mother consented to the procedure and signed a form attesting to this. The consent form is in the chart. - Aspirin 300mg FL given - Heparin bolus and drip given - Amiodarone 300mg bolus then drip started - clinical laboratory manager alert called (discussed with Drs. Obrien and Lorie) - Consent reviewed and signed - No obvious CI to DAPT - Sedation plan: on propofol and fentanyl - FULL CODE Uday Alves MD 11/04/2021 3:37 PM * Valorie Obrien MD - 11/04/2021 1:14 PM EST Images from the original note were not included. [facility] [place] [address] [place] [id number] ? INPATIENT CARDIOLOGY ADMISSION H&P ? Date of Consultation: 11/04/2021 Admit Date: 11/04/2021 ?? I have seen and examined this patient and discussed with the internet assessor, resident, fellow. I agree withthe plan noted This is a 36 year old woman who has no known cardiac disease but this morning was heard moaning in bed after which her boyfriend returned to the bedroom and found her unresponsive. He administered CPR X approx 10 min. EMS arrived and found her in ventricular fibrillation (no strips available to be reviewed) gave her one shock, began transport. Epi X 2 given with ROSC but no indication of meaningful response (mental status). Bedside echo by Dr. Alves was unremarkable. She has a history of psychiatric disorders (bipolar) and is on several medications that can prolongthe QTc however review of her chart shows measures of ~ 480 or less. She presented to [facility] in Sep 2021 with chest pain but r/o for PR. She had COVID in 2020 (vaccination status unclear). See note below with history provided by Ms. Lundy's mother. Initial venous pH 7.09 lactate 65. CK 135, d-dimer 5000 (r/o for PE), Serum creatinine 1.55 (baseline ~ 1.0), hemoglobin 12.4, platelets 298, WBC 25, AST 72 ALT 79. Troponin 0.02. Shortly after 3 pm today, Dr. Marek Alves, community assistant was bedside when she again went into Vfib.While the etiology of her arrest is still not clear (she is at relatively low risk for obstructive coronary artery disease), I feel that defining her coronary anatomy is reasonable. We will also havea formal echocardiogram. Valorie Obrien MD, Naye, [facility] Cardiology Attending ?? Hospital Day 0 days ?? CC: Out of hospital VF arrest ?? HPI: Aniya Lundy is a 36 y.o. female with a history of tobacco use, hypertension on ZANE-I at home, anxiety, depression and recent COVID-19 infection (diagnosed 09/27/2021) who suffered an out of hospital VF arrest at home today witnessed by her boyfriend. According to her boyfriend Dk, she awoke from sleep this morning with severe heartburn and palpitations and asked for a wet washcloth. When Dk returned, she was found blue and unresponsive. Dk performed about 10 minutes of bystander CPR before EMS arrived. EMS found her in ventricular fibrillation and pulseless. They performed 2 minutesof CPR, gave 1 shock and 2 rounds of epi. Per their report, she withdrew but did not follow commands. On arrival to the emergency department, her VBG was found to be 7.09/66 with a lactate of 6.5. She was intubated in the emergency department. ABG post intubation showed 7.2 3/44/199 with a lactate of 2.1. Labs were remarkable for WBC of 26, potassium of 5.1, creatinine 1.56, D-dimer 5000, troponin 0.02 and negative test. U tox is still pending. Post resuscitation ECG shows sinus tachycardia with QTC of 484 and no acute ischemic changes. No significant changes were found compared to her prior ECG. There was no evidence of Brugada or accessory pathway. The patient underwent CT PE which was negative for PE. Her head CT was also negative for bleed. ?? I had a long conversation with her mother who confirmed most of her medical history. According to the mother, Aniya was not the most physically active child growing up but she was able to keep up with her peers. Aniya never had a cardiac diagnosis growing up. Aniya has 3 children but only lives with one of them intermittently. Her first child lives with Aniya's mother and a second child lives with her other sister. Aniya's mother states that Aniya has been struggling with her bipolar for a long time and has not been able to live with all 3 children due to her bipolar, anxiety and depression issues. To mother's knowledge, Aniya has not been engaged in any recreational drugs. Aniya recently told her mother that she has tried heroin once in the past. Aniya has a history of 1 miscarriage. There is no known cardiac history in the patient's first-degree relatives, however, Shannon (Aniya's mother) has a female cousin who at age 18 due to an underlying cardiac issue that was known since . Shannon denies any history of sudden cardiac in the family. ?? Shannon also told me that Aniya has been complaining of intermittent heaviness in the chest, GERD symptoms, and fullness for the past 6 months. Aniya had a recent visit to [facility] ED in mid September with sharp chest pain. She ruled out for ACS at the time and was discharged home. Shannon also noted that Aniya has been mentioning passive suicidal ideation, but she never thought Aniya would act on it. ?? I tried calling Dk this morning but was unable to reach him. ?? Past Medical History Past Medical History: Diagnosis Date ??? Anorexia ? Anxiety 08/03/2014 ??? Asthma 08/03/2014 ??? Flaherty's palsy ? Chest pain 01/17/2016 ?? ETT 2013- negative ST III Echo 2013 ??Normal LV size and function, trivial TR, mild PI ??? Depression ? Headache ? Hypertension 08/03/2014 ? Past Surgical History Past Surgical History: Procedure Laterality Date ??? DILATION AND CURETTAGE OF UTERUS ? x2 ??? PRO UPPER GI ENDOSCOPY, DIAGNOSTIC N/A 01/09/2021 ?? EGD, UPPER GI ENDOSCOPY performed by Dudley Alva MD at [facility] ? Allergies Allergen Reactions ??? Augmentin [Amoxicillin-Pot Clavulanate] Rash ? Unsure if allergic ??? Ipratropium Other (See Comments) ??? Morphine Other (See Comments) ? Cannot recall ??? Penicillins Rash ??? Seroquel [Quetiapine] Other (See Comments) ? Made head feel loopy. ? In-Patient Medications: ??? shift total and Settings verification 1 each Intravenous 2 Times Daily - Shift Total ??? fentaNYL (PF) 100 mcg Intravenous Once ??? famotidine 20 mg Oral BID ??? chlorhexidine 15 mL Oral BID ??? white petrolatum-mineral oiL 1 each Both Eyes BID ? fentaNYL ??? NORepinephrine Stopped (11/04/21827) ??? propofoL 30 mcg/kg/min (11/04/21849) ? Family History: Family History Family History Problem Relation Age of Onset ??? Migraines Mother ? Cancer Mother ? Social History: Social History ?? Socioeconomic History ??? Marital status: Single ? Spouse name: Not on file ??? Number of children: Not on file ??? Years of education: Not on file ??? Highest education level: Not on file Occupational History ??? Not on file Tobacco Use ??? Smoking status: Current Every Day Smoker ? Packs/day: 1.00 ? Years: 15.00 ? Pack years: 15.00 ? Types: Cigarettes ??? Smokeless tobacco: Never Used ??? Tobacco comment: Smokess 0.5 - 1 packs of cigarettes daily x 13 - 14 years. Vaping Use ??? Vaping Use: Never used Substance and Sexual Activity ??? Alcohol use: Not Currently ??? Drug use: Not Currently ? Comment: CBD as needed ??? Sexual activity: Yes ? Partners: Male ? Comment: question deferred Other Topics Concern ??? Do You live alone? Not Asked ??? Tobacco in Home Not Asked Social History Narrative ??? Not on file ?? Social Determinants of Health ?? Financial Resource Strain: Not on file Food Insecurity: Not on file Transportation Needs: Not on file Physical Activity: Not on file Housing Stability: Not on file ? Physical Exam: ?? Last value Range last 8 hrs Temperature Temp: 36.2 ??C (97.2 ??F) Temp: [36.2 ??C (97.2 ??F)] Heart Rate Heart Rate: 78 Heart Rate: [78-129] Blood Pressure BP: 111/61 BP: (77-139)/(47-95) Respiratory Rate Resp: 16 Resp: [10-26] SpO2 SpO2: 100 % SpO2: [96 %-100 %] ?? No intake or output data in the 24 hours ending 11/04/21 0921 Wt & BMI By Encounter Date ED from 11/04/2021 in Emergency Department [facility] ED from 10/10/2021 in Emergency Services at [facility] Weight 70 kg (154 lb 5.2 oz) 1 11/04/2021 0723 72.6 kg (160 lb) 1 10/10/2021 1657 BMI -- 27.46 1 10/10/2021 1657 ? General: Intubated and sedated, frequent coughing Cardiac: Regular, tachycardic Respiratory: Equal breath sounds bilaterally Abdominal: Soft and non-tender with no organomegaly. Normal bowel sounds Extremities: Warm to touch, no edema ? ECG: sinus tachycardia, QTc 484, no evidence of delta wave or Brugada ?? CTPE 11/04/2021 1. ??No pulmonary embolism identified. 2. ??Bibasilar atelectasis, particularly on the left where there is collapse of much of the left lower lobe. 3. ??Hazy opacities within the inferior left upper lobe are nonspecific and may be infectious or traumatic in nature. 4. ??Motion artifact or nondisplaced fracture of the mid sternum. Motion artifact is favored. Recommend clinical correlation. ? Recent Labs 11/04/21 0735 WBC 25.6* HGB 12.9 HCT 43.1 PLATELET 298 ?? Recent Labs 11/04/21 0735 NA 140 K 5.1* CL 104 CO2 19* BUN 20* CREATININE 1.55* ?? Recent Labs 11/04/21 0735 AST 72* ALT 79* ALKPHOS 88 BILITOT 0.2 ?? Recent Labs 11/04/21 0735 CALCIUM 9.4 MAGNESIUM 1.04 PHOS 6.2* ?? No results for input(s): INR, PT, PTT in the last 168 hours. Recent Labs 11/04/21 0735 TROPONINT 0.02* ?? ProBNP Date Value Ref Range Status 07/04/2016 1,228 (H) <=125 pg/mL Final ? Assessment/Recommendations: Aniya Lundy is a 36 y.o. female with a history of tobacco use, hypertension on ZANE-I at home, anxiety, depression and recent COVID-19 infection (diagnosed 09/27/2021) who suffered an out of hospital VF arrest at home today witnessed by her boyfriend. The etiology of her VF arrest at home is not clear at this time. However, it does not appear to be related to acute coronary event given normal ECG, preserved biventricular function without obvious WMA on bedside echocardiogram, and minimal troponin elevation despite CPR. Per limited view of the coronary arteries on CTPE, she does not appear to have anomalous coronary origin. Other differential includes Torsades de pointes in the setting of QTc prolonging medications at home, however, her QTc in the ED is within normal range. Her electrolytes are also normal and her UTox is only positive for benzodiazepine. Other rare diagnoses to consider include myocarditis given recent COVID-19 infection, ARVC, and other primary electrical issues (LQTS, Brugada, WPW -- no evidence of these on resting ECG). ?? # Out of hospital VF arrest # Hypertension # Recent COVID-19 infection (diagnosed 09/27/2021), PCR negative on 11/04/2021 ?? Neuro - Has not had meaningful neuro response since arrest - Propofol and fentanyl for sedation - Targeted temperature management (36C) for 48 hours ?? Pulm - No active issues, currently intubated for airway protection - Adult vent protocol ?? CV - Hemodynamically and electrically stable, no ST elevation - no indication for urgent cath - will need to look at her coronary anatomy once renal function is stable - Formal echo pending to r/o structural disease, will likely need cardiac MRI when more stable - No reversible causes identified at this time, will hold all home psych meds (QTc prolonging medications) - Will engage EP once initial work up is completed ?? Renal - Acute kidney injury in the setting of cardiac arrest - Place ev, monitor urine output and electrolytes, no need for INTELLIGENCE INTERN at this time ?? GI - Place OGT - Stress ulcer ppx ?? ID - Will obtain blood cultures, no concern for active infection at this time based on history ? FULL CODE Nex of kin: Mother Shannon [phone] (verbal consent for central line obtained) ? Uday (Cielo) MD [facility] Fellow Pager [phone] ? documented in this encounter Procedure Notes * Leonora Mandujano MD - 11/08/2021 1:47 PM ESTAssociated Order(s): EEG 24 HOUR MONITORING, PORTABLE [facility] Department of Neurology Inpatient Continuous EEG Report Name of the Patient: Aniya Lundy Date of : 1985 Date of Service: 11/08/2021 Referring physician: Jhony Regan DO BRIEF HISTORY: Aniya Lundy is a 36 y.o. patient with a history of tobacco use, HTN, anxiety, depression, recent COVID-19 infection (diagnosed 09/27/2021) who suffered an out of hospital VF arrest with witnessedseizure. MEDICATIONS: Current Facility-Administered Medications Medication Dose Route Frequency Provider Last Rate Last Admin ??? ceFEPime (Maxipime) 2g vial attach to sodium chloride 0.9% 100 mL Mini-Bag Plus 2 g 2 g Intravenous Q8H Valorie Obrien MD Stopped at 11/08/21 0839 ??? vancomycin (Vancocin) 1.5 gram in sodium chloride 0.9% 500 mL infusion 1.5 g Intravenous Q12H Valorie Obrien MD Stopped at 11/08/21 1132 ??? [START ON 11/09/2021] Vancomycin Level - MAR Order Reminder NOT APPLICABLE Once Valorie Obrien MD ??? tube feeding diet 1,300 mL Per NG tube Continuous Jerrod Muse MD 20 mL/hr at 11/08/21 1315 1,300 mL at 11/08/21 1315 ??? amLODIPine (Norvasc) tablet 10 mg 10 mg Oral Daily Jerrod Muse MD 10 mg at 11/08/21 1018 ??? polyethylene glycoL (Miralax) packet 17 g 17 g Oral BID Shana Zurita MD 17 g at ??? acetaminophen (Tylenol) tablet 650 mg 650 mg Oral Q6H PRN Jerrod Muse MD 650 mg at 11/08/21 1209 ??? enoxaparin (Lovenox) (40 mg/0.4 mL) subcutaneous injection 40 mg 40 mg Subcutaneous Nightly Jerrod Muse MD 40 mg at 11/07/21 2115 ??? dexmedetomidine (Precedex) (4 mcg/mL) in sodium chloride 0.9% 100 mL infusion 0-1.7 mcg/kg/hr Intravenous Continuous Jerrod Muse MD Stopped at 11/07/21 1645 ??? lidocaine (Lidoderm) 5% patch 3 patch 3 patch Transdermal Q24H Shana Zurita MD 3 patch at 11/07/21 1744 And ??? lidocaine (Lidoderm) topical patch REMOVAL 3 patch Transdermal Q24H Shana Zurita MD ??? midazolam (pf) (Versed) (1 mg/mL) injection 1 mg 1 mg Intravenous Q4H PRN Richard Asher MD 1mg at 11/05/21 0241 ??? atorvastatin (Lipitor) tablet 40 mg 40 mg Oral QPM Jerrod Muse MD 40 mg at 11/07/21 1737 ??? senna (Senokot) tablet 8.6 mg 8.6 mg Oral BID PRN Jerrod Muse MD 8.6 mg at 11/06/21 0800 ??? NORepinephrine (Levophed) (16 mcg/mL) in dextrose 5% 250 mL infusion 0-100 mcg/min Intravenous Continuous Uday Alves MD 0 mL/hr at 11/07/21 0700 0 mcg/min at 11/07/21 0700 ??? famotidine (Pepcid) tablet 20 mg 20 mg Oral BID Uday Alves MD 20 mg at 11/08/21 1018 ??? chlorhexidine (Peridex) 0.12 % oral solution 15 mL 15 mL Oral BID Uday Alves MD 15 mL at 11/08/21 0810 ??? white petrolatum-mineral oiL ophthalmic ointment 1 each Both Eyes BID Uday Alves MD 1 each at 11/07/21 0947 ??? sodium chloride 0.9 % (flush) (BD PosiFlush Normal Saline 0.9) flush 5 mL 5 mL Intravenous BID Uday Alves MD 5 mL at 11/08/21 0809 ??? sodium chloride 0.9 % (flush) (BD PosiFlush Normal Saline 0.9) flush 5-20 mL 5-20 mL Intravenous Q1 Min PRN Uday Alves MD ??? nitroGLYcerin (Nitrostat) disintegrating tablet 0.4 mg 0.4 mg Sublingual Q5 Min PRN Uday Alves MD ??? busPIRone (Buspar) tablet 30 mg 30 mg Oral Q8H PRN Uday Alves MD ??? white petrolatum-mineral oiL (Eucerin) cream Topical (Top) Q8H SONALI Uday Alves MD Given at 11/06/21 2200 ??? lidocaine (pf) (Xylocaine) (4 mg/mL) in dextrose 5% 500 mL infusion Continuous PRN Jama Melo MD 15 mL/hr at 11/05/21 0500 Rate Verify at 11/05/21 0500 ??? nitroGLYcerin (200 mcg/mL) in dextrose 5% 250 mL infusion Continuous PRN aJma Melo MD Stopped at 11/04/216 ??? sodium chloride 0.9% infusion Continuous PRN Jama Melo MD Stopped at 11/04/21 2200 ??? iohexoL (Omnipaque) (350 mg/mL) solution Once PRN Jama Melo MD 12 mL at 11/04/21 1816 ??? niCARdipine (Cardene) (0.2 mg/mL) in sodium chloride 200 mL infusion 5 mg/hr Intravenous Continuous Fausto Earl MD Held at 11/08/21 1222 METHODS: A 21 channel digitized continuous electroencephalogram with video was set up and recording started at 11:05 on 11/04/2021. Following explanation of the procedure, the 10/20 international system of electrode placement was used to determine electrode placement and disposable MRI conditional electrodeswere applied using the paste/collodion method of application. In addition to EEG the patient was monitored for EKG. Video was recorded during the session. BOAT DRIVER'S REPORT: Performed by: Leon Clark At the onset of the recording the patient was Intubated. Movement and other artifact was not significant. Comments:None [facility] Department of Neurology Critical Care Continuous EEG Report Patient: Aniya Lundy, [id number] Date: 11/08/21 Start Time: 05:00 11/07/2021 End Time: 11:05 11/08/2021 Duration: 6 hours, 5 minutes Background Symmetry Symmetric Continuity Continuous Breach Present Absent PDR Absent --> Present, 8.5 Hz Background EEG Frequency > or equal to Alpha AP Gradient Present Present Variability Present Reactivity Present Voltage Normal Stage II Sleep Transients Present but abnormal Periodic/Rhythmic Patterns No Sporadic Epileptiform Discharges Prevalence None Clinical/push button events 00:55 11/05/21 Clinical: eye rolling, limb stiffening EEG: no abnormal epileptiform correlates 01:40 11/05/21 Clinical: The patient exhibits two generalized body jerks (01:39:39 and 01:40:04), arms/legs raise,blinking EEG: no abnormal epileptiform correlates Single lead EKG Intermittently rapid rate Interpretation This continuous video EEG is abnormal due to rare runs of theta slowing. Otherwise, the background consists of a well-formed anterior to posterior gradient, with posterior dominant rhythm of 8.5 and waking alpha rhythm. Clinical Correlation This day #4 (additional 6 hours) of EEG is suggestive of mild diffuse cerebral dysfunction of a nonspecific etiology. No seizures or epileptiform discharges are observed. Compared to the previous recording, there is an overall improvement in the degree cerebral dysfunction. The clinical push button events on 11/05 for eye rolling/stiffening and for two myoclonic jerks did not have corresponding EEG changes and therefore are not consistent with epileptic seizures. The EEG leads have been removed. Leonora Mandujano MD Epilepsy Fellow PGY-6 11/08/2021 Associated attestation - Darien Zavala MD - 11/13/2021 7:14 PM EST EPILEPSY ATTENDING ADDENDUM - I reviewed the EEG with the HORTICULTURAL SPECIALTY GROWER/Epilepsy fellow, and I agree with the interpretation as documented. Darien Zavala MD, PhD Professor of [facility]rology [facility] Clinical Neurophysiology Laboratory [facility] * Leonora Mandujano MD - 11/08/2021 1:36 PM EST [facility] Department of Neurology Inpatient Continuous EEG Report Name of the Patient: Aniya Lundy Date of : 1985 Date of Service: 11/08/2021 Referring physician: Jhony Regan DO BRIEF HISTORY: Aniya Lundy is a 36 y.o. patient with a history of tobacco use, HTN, anxiety, depression, recent COVID-19 infection (diagnosed 09/27/2021) who suffered an out of hospital VF arrest with witnessedseizure. MEDICATIONS: Current Facility-Administered Medications Medication Dose Route Frequency Provider Last Rate Last Admin ??? ceFEPime (Maxipime) 2g vial attach to sodium chloride 0.9% 100 mL Mini-Bag Plus 2 g 2 g Intravenous Q8H Valorie Obrien MD Stopped at 11/08/21 0839 ??? vancomycin (Vancocin) 1.5 gram in sodium chloride 0.9% 500 mL infusion 1.5 g Intravenous Q12H Valorie Obrien MD Stopped at 11/08/21 1132 ??? [START ON 11/09/2021] Vancomycin Level - MAR Order Reminder NOT APPLICABLE Once Valorie Obrien MD ??? tube feeding diet 1,300 mL Per NG tube Continuous Jerrod Muse MD 20 mL/hr at 11/08/21 1315 1,300 mL at 11/08/21 1315 ??? amLODIPine (Norvasc) tablet 10 mg 10 mg Oral Daily Jerrod Muse MD 10 mg at 11/08/21 1018 ??? polyethylene glycoL (Miralax) packet 17 g 17 g Oral BID Shana Zurita MD 17 g at ??? acetaminophen (Tylenol) tablet 650 mg 650 mg Oral Q6H PRN Jerrod Muse MD 650 mg at 11/08/21 1209 ??? free water bolus 250 mL 250 mL Per NG tube 4 Times Daily Prashant Johnson MD ??? enoxaparin (Lovenox) (40 mg/0.4 mL) subcutaneous injection 40 mg 40 mg Subcutaneous Nightly Jerrod Muse MD 40 mg at 11/07/21 2115 ??? dexmedetomidine (Precedex) (4 mcg/mL) in sodium chloride 0.9% 100 mL infusion 0-1.7 mcg/kg/hr Intravenous Continuous Jerrod Muse MD Stopped at 11/07/21 1645 ??? lidocaine (Lidoderm) 5% patch 3 patch 3 patch Transdermal Q24H Shana Zurita MD 3 patch at 11/07/21 1744 And ??? lidocaine (Lidoderm) topical patch REMOVAL 3 patch Transdermal Q24H Shana Zurita MD ??? midazolam (pf) (Versed) (1 mg/mL) injection 1 mg 1 mg Intravenous Q4H PRN Richard Asher MD 1mg at 11/05/21 0241 ??? atorvastatin (Lipitor) tablet 40 mg 40 mg Oral QPM Jerrod Muse MD 40 mg at 11/07/21 1737 ??? senna (Senokot) tablet 8.6 mg 8.6 mg Oral BID PRN Jerrod Muse MD 8.6 mg at 11/06/21 0800 ??? NORepinephrine (Levophed) (16 mcg/mL) in dextrose 5% 250 mL infusion 0-100 mcg/min Intravenous Continuous Uday Alves MD 0 mL/hr at 11/07/21 0700 0 mcg/min at 11/07/21 0700 ??? famotidine (Pepcid) tablet 20 mg 20 mg Oral BID Uday Alves MD 20 mg at 11/08/21 1018 ??? chlorhexidine (Peridex) 0.12 % oral solution 15 mL 15 mL Oral BID Uday Alves MD 15 mL at 11/08/21 0810 ??? white petrolatum-mineral oiL ophthalmic ointment 1 each Both Eyes BID Uday Alves MD 1 each at 11/07/21 0947 ??? sodium chloride 0.9 % (flush) (BD PosiFlush Normal Saline 0.9) flush 5 mL 5 mL Intravenous BID Uday Alves MD 5 mL at 11/08/21 0809 ??? sodium chloride 0.9 % (flush) (BD PosiFlush Normal Saline 0.9) flush 5-20 mL 5-20 mL Intravenous Q1 Min PRN Uday Alves MD ??? nitroGLYcerin (Nitrostat) disintegrating tablet 0.4 mg 0.4 mg Sublingual Q5 Min PRN Uday Alves MD ??? busPIRone (Buspar) tablet 30 mg 30 mg Oral Q8H PRN Uday Alves MD ??? white petrolatum-mineral oiL (Eucerin) cream Topical (Top) Q8H SONALI Uday Alves MD Given at 11/06/21 2200 ??? lidocaine (pf) (Xylocaine) (4 mg/mL) in dextrose 5% 500 mL infusion Continuous PRN Jama Melo MD 15 mL/hr at 11/05/21 0500 Rate Verify at 11/05/21 0500 ??? nitroGLYcerin (200 mcg/mL) in dextrose 5% 250 mL infusion Continuous PRN Jama Melo MD Stopped at 11/04/216 ??? sodium chloride 0.9% infusion Continuous PRJama Benavides MD Stopped at 11/04/21 2200 ??? iohexoL (Omnipaque) (350 mg/mL) solution Once PRN Jama Melo MD 12 mL at 11/04/21 1816 ??? niCARdipine (Cardene) (0.2 mg/mL) in sodium chloride 200 mL infusion 5 mg/hr Intravenous Continuous Fausto Earl MD Held at 11/08/21 1222 METHODS: A 21 channel digitized continuous electroencephalogram with video was set up and recording started at 11:05 on 11/04/2021. Following explanation of the procedure, the 10/20 international system of electrode placement was used to determine electrode placement and disposable MRI conditional electrodeswere applied using the paste/collodion method of application. In addition to EEG the patient was monitored for EKG. Video was recorded during the session. BOAT DRIVER'S REPORT: Performed by: Leon Clark At the onset of the recording the patient was Intubated. Movement and other artifact was not significant. Comments:None [facility] Department of Neurology Critical Care Continuous EEG Report Patient: Aniya Lundy, [id number] Date: 11/08/21 Start Time: 05:00 11/07/2021 End Time: 05:00 11/08/2021 Duration: 24 hours Background Symmetry Symmetric Continuity Continuous Breach Present Absent PDR Absent --> Present, 8.5 Hz Background EEG Frequency > or equal to Alpha AP Gradient Present Present Variability Present Reactivity Present Voltage Normal Stage II Sleep Transients Present but abnormal Periodic/Rhythmic Patterns No Sporadic Epileptiform Discharges Prevalence None Clinical/push button events 00:55 11/05/21 Clinical: eye rolling, limb stiffening EEG: no abnormal epileptiform correlates 01:40 11/05/21 Clinical: The patient exhibits two generalized body jerks (01:39:39 and 01:40:04), arms/legs raise,blinking EEG: no abnormal epileptiform correlates Interpretation This continuous video EEG is abnormal due to the presence of mild generalized theta slowing of the background prior to extubation. In the latter portion of the study, an anterior to posterior gradient is apparent and a posterior dominant rhythm emerges, with an alpha rhythm observed. The push button clinical events on 11/05 at 00:55 for eye rolling/limb stiffening and at 01:40 for two generalized myoclonic jerks did not exhibit epileptiform correlates. Clinical Correlation This day #4 of EEG is suggestive of mild diffuse cerebral dysfunction of a nonspecific etiology with superimposed effects of sedatives/medications. No seizures or epileptiform discharges are observed. The clinical push button events on 11/05 for eye rolling/stiffening and for two myoclonic jerks did not have corresponding EEG changes and therefore are not consistent with epileptic seizures. Compared to the previous recording, there is an overall improvement in the degree cerebral dysfunction. Leonora Mandujano MD Epilepsy Fellow PGY-6 11/08/2021 Associated attestation - Darien Zavala MD - 11/13/2021 7:13 PM EST EPILEPSY ATTENDING ADDENDUM - I reviewed the EEG with the H[employer]ICULT[employer] SPECIALTY GROWER/Epilepsy fellow, and I agree with the interpretation as documented. Darien Zavala MD, PhD Professor of [facility]rology [facility] Clinical Neurophysiology Laboratory [facility] * Leonora Mandujano MD - 11/07/2021 12:23 PM EST [facility] Department of Neurology Inpatient Continuous EEG Report Name of the Patient: Aniya Lundy Date of : 1985 Date of Service: 11/07/2021 Referring physician: Jhony Regan DO BRIEF HISTORY: Aniya Lundy is a 36 y.o. patient with a history of tobacco use, HTN, anxiety, depression, recent COVID-19 infection (diagnosed 09/27/2021) who suffered an out of hospital VF arrest with witnessedseizure. MEDICATIONS: Current Facility-Administered Medications Medication Dose Route Frequency Provider Last Rate Last Admin ??? Vancomycin Level - MAR Order Reminder NOT APPLICABLE Once Valorie Obrien MD ??? enoxaparin (Lovenox) (40 mg/0.4 mL) subcutaneous injection 40 mg 40 mg Subcutaneous Nightly Jerrod Muse MD ??? vancomycin- intermittent dosing per levels NOT APPLICABLE Per Pharmacy Tamkea Spann MD ??? dexmedetomidine (Precedex) (4 mcg/mL) in sodium chloride 0.9% 100 mL infusion 0-1.7 mcg/kg/hr Intravenous Continuous Jerrod Muse MD Stopped at 11/06/211999 ??? LORazepam (Ativan) (2 mg/mL) injection 1 mg 1 mg Intravenous Q8H Tameka Spann MD 1 mg at 11/07/21 0547 ??? lidocaine (Lidoderm) 5% patch 3 patch 3 patch Transdermal Q24H Shana Zurita MD 3 patch at 11/06/21 1602 And ??? lidocaine (Lidoderm) topical patch REMOVAL 3 patch Transdermal Q24H Shana Zurita MD ??? ceFEPime (Maxipime) 2g vial attach to sodium chloride 0.9% 100 mL Mini-Bag Plus 2 g 2 g Intravenous Q12H Yonas Olivares MD 200 mL/hr at 11/07/21 1213 2 g at 11/07/21 1213 ??? metroNIDAZOLE (Flagyl) 500 mg in sodium chloride 0.9% 100 mL infusion 500 mg Intravenous Q8H [facility] Yonas Olivares MD 200 mL/hr at 11/07/21 1213 500 mg at 11/07/21 1213 ??? midazolam (pf) (Versed) (1 mg/mL) injection 1 mg 1 mg Intravenous Q4H PRN Richard Asher MD 1mg at 11/05/21 0241 ??? fentaNYL (PF) (50 mcg/mL) infusion syringe 50 mL 0-400 mcg/hr Intravenous Continuous Richard Asher MD 3 mL/hr at 11/07/21 1000 150 mcg/hr at 11/07/21 1000 And ??? fentaNYL (50 mcg/mL) bolus from infusion 50-200 mcg 50-200 mcg Intravenous Q15 Min PRN Richard Asher MD 50 mcg at 11/06/21 1745 And ??? fentaNYL shift total and Settings verification 1 each Intravenous 2 Times Daily - Shift Total Richard Asher MD ??? atorvastatin (Lipitor) tablet 40 mg 40 mg Oral QPM Jerrod Muse MD 40 mg at 11/05/21 1633 ??? senna (Senokot) tablet 8.6 mg 8.6 mg Oral BID PRN Jerrod Muse MD 8.6 mg at 11/06/21 0800 ??? polyethylene glycoL (Miralax) packet 17 g 17 g Oral Daily PRN Jerrod Muse MD 17 g at 11/06/21 0800 ??? vasopressin 20 units in sodium chloride 0.9% 100 mL infusion 0.04-0.1 Units/min Intravenous Continuous Jerrod Muse MD Stopped at 11/05/21 1814 ??? NORepinephrine (Levophed) (16 mcg/mL) in dextrose 5% 250 mL infusion 0-100 mcg/min Intravenous Continuous Uday Alves MD 0 mL/hr at 11/07/21 0700 0 mcg/min at 11/07/21 0700 ??? famotidine (Pepcid) tablet 20 mg 20 mg Oral BID Uday Alves MD 20 mg at 11/07/21 0948 ??? chlorhexidine (Peridex) 0.12 % oral solution 15 mL 15 mL Oral BID Uday Alves MD 15 mL at 11/07/21 0946 ??? propofoL (Diprivan) (10 mg/mL) infusion 0-50 mcg/kg/min Intravenous Continuous Uday Alves MD 21 mL/hr at 11/07/21 1000 50 mcg/kg/min at 11/07/21 1000 And ??? propofoL (Diprivan) (10 mg/mL) bolus from infusion 10 mg 10 mg Intravenous Q10 Min PRN Uday Alves MD ??? white petrolatum-mineral oiL ophthalmic ointment 1 each Both Eyes BID Uday Alves MD 1 each at 11/07/21 0947 ??? sodium chloride 0.9 % (flush) (BD PosiFlush Normal Saline 0.9) flush 5 mL 5 mL Intravenous BID Uday Alves MD 5 mL at 11/07/21 0947 ??? sodium chloride 0.9 % (flush) (BD PosiFlush Normal Saline 0.9) flush 5-20 mL 5-20 mL Intravenous Q1 Min PRN Uday Alves MD ??? nitroGLYcerin (Nitrostat) disintegrating tablet 0.4 mg 0.4 mg Sublingual Q5 Min PRN Uday Alves MD ??? busPIRone (Buspar) tablet 30 mg 30 mg Oral Q8H PRN Uday Alves MD ??? white petrolatum-mineral oiL (Eucerin) cream Topical (Top) Q8H SONALI Uday Alves MD Given at 11/06/210 ??? AMIOdarone (Cordarone) injection Once PRN Jama Melo MD 150 mg at 11/04/21 1709 ??? lidocaine (pf) (Xylocaine) (4 mg/mL) in dextrose 5% 500 mL infusion Continuous PRN Jama Melo MD 15 mL/hr at 11/05/21 0500 Rate Verify at 11/05/21 0500 ??? nitroGLYcerin (200 mcg/mL) in dextrose 5% 250 mL infusion Continuous PRN Jama Melo MD Stopped at 11/04/212115 ??? sodium chloride 0.9% infusion Continuous PRN Jama Melo MD Stopped at 11/04/212199 ??? iohexoL (Omnipaque) (350 mg/mL) solution Once PRN Jama Melo MD 12 mL at 11/04/211815 ??? niCARdipine (Cardene) (0.2 mg/mL) in sodium chloride 200 mL infusion 5 mg/hr Intravenous Continuous Stock, Fausto Garcia MD 25 mL/hr at 11/07/21 1008 5 mg/hr at 11/07/21 1008 METHODS: A 21 channel digitized continuous electroencephalogram with video was set up and recording started at 11:05 on 11/04/2021. Following explanation of the procedure, the 10/20 international system of electrode placement was used to determine electrode placement and disposable MRI conditional electrodeswere applied using the paste/collodion method of application. In addition to EEG the patient was monitored for EKG. Video was recorded during the session. BOAT DRIVER'S REPORT: Performed by: Leon Clark At the onset of the recording the patient was Intubated. Movement and other artifact was not significant. Comments:None [facility] Department of Neurology Critical Care Continuous EEG Report Patient: Aniya Lundy, [id number] Date: 11/07/21 Start Time: 05:00 11/06/2021 End Time: 05:00 11/07/2021 Duration: 24 hours Background Symmetry Symmetric Continuity Continuous Breach Present Absent PDR Absent Background EEG Frequency > or equal to Alpha, intermittent superimposed beta --> delta with overriding alpha/beta AP Gradient Present Absent Variability Present Reactivity Present Voltage Normal Stage II Sleep Transients Absent --> Present Periodic/Rhythmic Patterns No Sporadic Epileptiform Discharges Prevalence None Clinical/push button events 00:55 11/05/21 Clinical: eye rolling, limb stiffening EEG: no abnormal epileptiform correlates 01:40 11/05/21 Clinical: The patient exhibits two generalized body jerks (01:39:39 and 01:40:04, arms/legs raise, blinking EEG: no abnormal epileptiform correlates Interpretation This continuous video EEG is abnormal due to the presence of diffuse alpha activity, at times with overriding beta. Over the course of the recording the background develops into primarily delta waveforms with overriding alpha/beta activity. Stage II sleep transients also begin to emerge. The push button clinical events on 11/05 at 00:55 for eye rolling/limb stiffening and at 01:40 for two generalized myoclonic jerks did not exhibit epileptiform correlates. Clinical Correlation This day #3 of EEG is suggestive of moderate to severe diffuse cerebral dysfunction of a nonspecific etiology with superimposed effects of sedatives/medications. No seizures or epileptiform discharges are observed. The clinical push button events on 11/05 for eye rolling/stiffening and for two myoclonic jerks did not have corresponding EEG changes and therefore are not consistent with epileptic seizures. Compared to the previous recording, there is an overall improvement in the degree cerebral dysfunction consistent with weaning of sedation and rewarming. Leonora Mandujano MD Epilepsy Fellow PGY-6 11/07/2021 Associated attestation - Darien Zavala MD - 11/07/2021 4:15 PM EST EPILEPSY ATTENDING ADDENDUM - I reviewed the EEG with the [employer]/Epilepsy fellow, and I agree with the interpretation as documented. Darien Zavala MD, PhD Professor of Neurology [facility]psy Center Clinical Neurophysiology Laboratory [facility] * Tameka Spann MD - 11/06/2021 6:00 PM ESTProcedure(s): PRO INSERT ARTERIAL PERCUTANEOUS CATH FOR MONITORING/TRANSFUSION Arterial Line Placement Procedure Note Indication for Procedure: Arterial line was placed for invasive blood pressure monitoring, arterialblood gases, access and blood sampling for laboratory test. Procedure Diagnosis: Hypotension Location of Procedure: Critical Care. Risks and Benefits: The risks and benefits of this procedure were reviewed and informed consent wasobtained. Time Out: Prior to the start of the procedure, the patient's identity, intended procedure, site/side, correct patient positioning and presence of the site jesus was confirmed as applicable. The medical history and chart were reviewed to rule out potential contraindications to the planned procedure. Hand Hygiene: The cartography technician did perform hand hygiene prior to arterial line insertion. Procedure Prep: Sterile draping was applied. Skin was prepped with chlorhexidine. 3 ml of 1% Lidocaine was used for local anesthesia. Procedure Details: A 20 gauge, 12 cm catheter was placed in the left radial artery and secured withsuture. Tegaderm was applied. Ultrasound was used for guidance. Guide wire was used in this procedure. The guide wire had a diameter of .018 inches. There were 2 attempts. Findings: There were no procedure complications. Blood was drawn with ease. Good wave form. * Leonora Mandujano MD - 11/06/2021 12:33 PM EST [facility] Department of Neurology Inpatient Continuous EEG Report Name of the Patient: Aniya Lundy Date of : 1985 Date of Service: 11/06/2021 Referring physician: Jhony Regan DO BRIEF HISTORY: Anyia Lundy is a 36 y.o. patient with a history of tobacco use, HTN, anxiety, depression, recent COVID-19 infection (diagnosed 09/27/2021) who suffered an out of hospital VF arrest with witnessedseizure. MEDICATIONS: Current Facility-Administered Medications Medication Dose Route Frequency Provider Last Rate Last Admin ??? ceFEPime (Maxipime) 1g vial attach to sodium chloride 0.9% 100 mL Mini-Bag Plus 1 g [id number] Tameka Spann MD Stopped at 11/06/21 0837 ??? [START ON 11/07/2021] Vancomycin Level - MAR Order Reminder NOT APPLICABLE Once Tameka Spann MD ??? vancomycin- intermittent dosing per levels NOT APPLICABLE Per Pharmacy Tameka Spann MD ??? Vancomycin Level - MAR Order Reminder NOT APPLICABLE Per Pharmacy Tameka Spann MD ??? dexmedetomidine (Precedex) (4 mcg/mL) in sodium chloride 0.9% 100 mL infusion 0-1.7 mcg/kg/hr Intravenous Continuous Jerrod Muse MD 3.5 mL/hr at 11/06/21 1219 0.2 mcg/kg/hr at 11/06/21 1219 ??? LORazepam (Ativan) (2 mg/mL) injection 1 mg 1 mg Intravenous Q8H Tameka Spann MD 1 mg at 11/06/21 1224 ??? midazolam (pf) (Versed) (1 mg/mL) injection 1 mg 1 mg Intravenous Q4H PRN Richard Asher MD 1mg at 11/05/21 0241 ??? acetaminophen (Tylenol) tablet 1,000 mg 1,000 mg Oral Q8H Richard Staples MD Or ??? acetaminophen (Tylenol) (32.02 mg/mL) oral liquid 1,000 mg 1,000 mg Oral Q8H Richard Staples MD 1,000 mg at 11/05/21 1351 Or ??? acetaminophen (Tylenol) suppository 975 mg 975 mg Rectal Q8H Richard Staples MD ??? fentaNYL (PF) (50 mcg/mL) infusion syringe 50 mL 0-400 mcg/hr Intravenous Continuous Richard Asher MD 4 mL/hr at 11/06/21 1200 200 mcg/hr at 11/06/21 1200 And ??? fentaNYL (50 mcg/mL) bolus from infusion 50-200 mcg 50-200 mcg Intravenous Q15 Min PRN Richard Asher MD 100 mcg at 11/06/21 1219 And ??? fentaNYL shift total and Settings verification 1 each Intravenous 2 Times Daily - Shift Total Richard Asher MD ??? atorvastatin (Lipitor) tablet 40 mg 40 mg Oral QPM Jerrod Muse MD 40 mg at 11/05/21 1633 ??? senna (Senokot) tablet 8.6 mg 8.6 mg Oral BID PRN Jerrod Muse MD 8.6 mg at 11/06/21 0800 ??? polyethylene glycoL (Miralax) packet 17 g 17 g Oral Daily PRN Jerrod Muse MD 17 g at 11/06/21 0800 ??? vasopressin 20 units in sodium chloride 0.9% 100 mL infusion 0.04-0.1 Units/min Intravenous Continuous Jerrod Muse MD Stopped at 11/05/21 1814 ??? NORepinephrine (Levophed) (16 mcg/mL) in dextrose 5% 250 mL infusion 0-100 mcg/min Intravenous Continuous Uday Alves MD 7.5 mL/hr at 11/06/21 1200 2 mcg/min at 11/06/21 1200 ??? famotidine (Pepcid) tablet 20 mg 20 mg Oral BID Uday Alves MD 20 mg at 11/06/21 0807 ??? chlorhexidine (Peridex) 0.12 % oral solution 15 mL 15 mL Oral BID Uday Alves MD 15 mL at 11/06/21 0806 ??? propofoL (Diprivan) (10 mg/mL) infusion 0-50 mcg/kg/min Intravenous Continuous Uday Alves MD 21 mL/hr at 11/06/21 1200 50 mcg/kg/min at 11/06/21 1200 And ??? propofoL (Diprivan) (10 mg/mL) bolus from infusion 10 mg 10 mg Intravenous Q10 Min PRN Uday Alves MD ??? white petrolatum-mineral oiL ophthalmic ointment 1 each Both Eyes BID Uday Alves MD 1 each at 11/05/21 0816 ??? sodium chloride 0.9 % (flush) (BD PosiFlush Normal Saline 0.9) flush 5 mL 5 mL Intravenous BID Uday Alves MD 5 mL at 11/05/21 2100 ??? sodium chloride 0.9 % (flush) (BD PosiFlush Normal Saline 0.9) flush 5-20 mL 5-20 mL Intravenous Q1 Min PRN Uday Alves MD ??? nitroGLYcerin (Nitrostat) disintegrating tablet 0.4 mg 0.4 mg Sublingual Q5 Min PRN Uday Alves MD ??? busPIRone (Buspar) tablet 30 mg 30 mg Oral Q8H PRN Uday Alves MD ??? white petrolatum-mineral oiL (Eucerin) cream Topical (Top) Q8H SONALI Uday Alves MD Given at 11/05/21 1351 ??? heparin (porcine) (1,000 units/mL) injection 0-4,000 Units 0-4,000 Units Intravenous BOLUS HEPARIN Aniya Scott MD And ??? heparin (porcine) 50 units/mL in sodium chloride 0.45% 500 mL infusion 0- 5,000 Units/hr Intravenous Continuous Aniya Henry MD Stopped at 11/06/21 0759 ??? AMIOdarone (Cordarone) injection Once PRN Jama Melo MD 150 mg at 11/04/21 1709 ??? lidocaine (pf) (Xylocaine) (4 mg/mL) in dextrose 5% 500 mL infusion Continuous PRN Jama Melo MD 15 mL/hr at 11/05/21 0500 Rate Verify at 11/05/21 0500 ??? nitroGLYcerin (200 mcg/mL) in dextrose 5% 250 mL infusion Continuous PRN Jama Melo MD Stopped at 11/04/212115 ??? sodium chloride 0.9% infusion Continuous PRN Jama Melo MD Stopped at 11/04/212199 ??? iohexoL (Omnipaque) (350 mg/mL) solution Once PRN Jama Melo MD 12 mL at 11/04/211815 ??? niCARdipine (Cardene) (0.2 mg/mL) in sodium chloride 200 mL infusion 5 mg/hr Intravenous Continuous Fausto Earl MD 25 mL/hr at 11/06/21 1200 5 mg/hr at 11/06/21 1200 ??? AMIOdarone (Cordarone) (1.8 mg/mL) in dextrose 5% 200 mL infusion 0.5-1 mg/min Intravenous Continuous Richard Asher MD 16.7 mL/hr at 11/06/21 1200 0.501 mg/min at 11/06/21 1200 METHODS: A 21 channel digitized continuous electroencephalogram with video was set up and recording started at 11:05 on 11/04/2021. Following explanation of the procedure, the 10/20 international system of electrode placement was used to determine electrode placement and disposable MRI conditional electrodeswere applied using the paste/collodion method of application. In addition to EEG the patient was monitored for EKG. Video was recorded during the session. BOAT DRIVER'S REPORT: Performed by: Leon Clark At the onset of the recording the patient was Intubated. Movement and other artifact was not significant. Comments:None [facility] Department of Neurology Critical Care Continuous EEG Report Patient: Aniya Lundy, [id number] Date: 11/06/21 Start Time: 05:00 11/05/2021 End Time: 05:00 11/06/2021 Duration: 24 hours Background Symmetry Symmetric Continuity Continuous Breach Present Absent PDR Absent Background EEG Frequency > or equal to Alpha, intermittent superimposed beta AP Gradient Present Absent Variability Present Reactivity Present Voltage Normal Stage II Sleep Transients Absent Periodic/Rhythmic Patterns No Sporadic Epileptiform Discharges Prevalence None Clinical/push button events 00:55 11/05/21 Clinical: eye rolling, limb stiffening EEG: no abnormal epileptiform correlates 01:40 11/05/21 Clinical: The patient exhibits two generalized body jerks (01:39:39 and 01:40:04, arms/legs raise, blinking EEG: no abnormal epileptiform correlates Interpretation This continuous video EEG is abnormal due to the presence of diffuse alpha activity, at times with overriding beta. The push button clinical events on 11/05 at 00:55 for eye rolling/limb stiffening and at 01:40 for two generalized myoclonic jerks did not exhibit epileptiform correlates. Clinical Correlation This day #2 of EEG is suggestive of moderate to marked diffuse cerebral dysfunction of a nonspecific etiology with superimposed effects of sedatives/medications. No seizures or epileptiform discharges are observed. The clinical push button events on 11/05 for eye rolling/stiffening and for two myoclonic jerks did not have corresponding EEG changes and therefore are not consistent with epileptic seizures. Compared to the previous recording, no significant changes are observed. Leonora Mandujano MD Epilepsy Fellow PGY-6 11/06/2021 Associated attestation - Darien Zavala MD - 11/07/2021 4:13 PM EST EPILEPSY ATTENDING ADDENDUM - I reviewed the EEG with the [employer]/Epilepsy fellow, and I agree with the interpretation as documented. Darien Zavala MD, PhD Professor of Neurology [facility] Clinical Neurophysiology Laboratory [facility] * Darien Zavala MD - 11/05/2021 9:32 AM EST [facility] Department of Neurology Inpatient Continuous EEG Report Name of the Patient: Aniya Lundy Date of : 1985 Date of Service: 11/05/2021 Referring physician: Jhony Regan DO BRIEF HISTORY: Aniya Lundy is a 36 y.o. patient with a history of tobacco use, HTN, anxiety, depression, recent COVID-19 infection (diagnosed 09/27/2021) who suffered an out of hospital VF arrest with witnessedseizure. MEDICATIONS: Current Facility-Administered Medications Medication Dose Route Frequency Provider Last Rate Last Admin ??? midazolam (pf) (Versed) (1 mg/mL) injection 1 mg 1 mg Intravenous Q4H PRN Richard Asher MD 1mg at 11/05/21 0241 ??? acetaminophen (Tylenol) tablet 1,000 mg 1,000 mg Oral Q8H Richard Staples MD Or ??? acetaminophen (Tylenol) (32.02 mg/mL) oral liquid 1,000 mg 1,000 mg Oral Q8H Richard Staples MD Or ??? acetaminophen (Tylenol) suppository 975 mg 975 mg Rectal Q8H Richard Staples MD ??? fentaNYL (PF) (50 mcg/mL) infusion syringe 50 mL 0-400 mcg/hr Intravenous Continuous Richard Asher MD 4 mL/hr at 11/05/21 0800 200 mcg/hr at 11/05/21 0800 And ??? fentaNYL (50 mcg/mL) bolus from infusion 50 mcg 50 mcg Intravenous Once Richard Asher MD And ??? fentaNYL (50 mcg/mL) bolus from infusion 50-200 mcg 50-200 mcg Intravenous Q15 Min PRN Richard Asher MD 50 mcg at 11/05/21 0455 And ??? fentaNYL shift total and Settings verification 1 each Intravenous 2 Times Daily - Shift Total Richard Asher MD ??? atorvastatin (Lipitor) tablet 40 mg 40 mg Oral QPM Jerrod Muse MD ??? NORepinephrine (Levophed) (16 mcg/mL) in dextrose 5% 250 mL infusion 0-100 mcg/min Intravenous Continuous Uday Alves MD Paused at 11/04/21827 ??? famotidine (Pepcid) tablet 20 mg 20 mg Oral BID Uday Alves MD 20 mg at 11/05/21815 ??? chlorhexidine (Peridex) 0.12 % oral solution 15 mL 15 mL Oral BID Uday Alves MD 15 mL at 11/05/21815 ??? propofoL (Diprivan) (10 mg/mL) infusion 0-50 mcg/kg/min Intravenous Continuous Uday Alves MD 21 mL/hr at 11/05/21815 50 mcg/kg/min at 11/05/21815 And ??? propofoL (Diprivan) (10 mg/mL) bolus from infusion 10 mg 10 mg Intravenous Q10 Min PRN Uday Alves MD ??? white petrolatum-mineral oiL ophthalmic ointment 1 each Both Eyes BID Uday Alves MD 1 each at 11/05/21815 ??? sodium chloride 0.9 % (flush) (BD PosiFlush Normal Saline 0.9) flush 5 mL 5 mL Intravenous BID Uday Alves MD 5 mL at 11/05/21815 ??? sodium chloride 0.9 % (flush) (BD PosiFlush Normal Saline 0.9) flush 5-20 mL 5-20 mL Intravenous Q1 Min PRN Uday Alves MD ??? lidocaine (Xylocaine) 1% (10 mg/mL) injection 3 mg 0.3 mL Subcutaneous Once PRN Uday Alves MD ??? nitroGLYcerin (Nitrostat) disintegrating tablet 0.4 mg 0.4 mg Sublingual Q5 Min PRN Uday Alves MD ??? busPIRone (Buspar) tablet 30 mg 30 mg Oral Q8H PRN Uday Alves MD ??? white petrolatum-mineral oiL (Eucerin) cream Topical (Top) Q8H SONALI Uday Alves MD ??? heparin (porcine) (1,000 units/mL) injection 0-4,000 Units 0-4,000 Units Intravenous BOLUS HEPARIN PP Aniya Henry MD And ??? heparin (porcine) 50 units/mL in sodium chloride 0.45% 500 mL infusion 0- 5,000 Units/hr Intravenous Continuous Aniya Henry MD 17 mL/hr at 11/05/21 0800 850 Units/hr at 11/05/21 0800 ??? AMIOdarone (Cordarone) injection Once PRN Jama Melo MD 150 mg at 11/04/21 1709 ??? lidocaine (pf) (Xylocaine) (20 mg/mL) 2% injection syringe Once PRN Jama Melo MD 100 mg at11/04/21 1707 ??? lidocaine (pf) (Xylocaine) (4 mg/mL) in dextrose 5% 500 mL infusion Continuous PRN Jama Melo MD 15 mL/hr at 11/05/21 0500 Rate Verify at 11/05/21 0500 ??? nitroGLYcerin (200 mcg/mL) in dextrose 5% 250 mL infusion Continuous PRN Jama Melo MD Stopped at 11/04/212115 ??? sodium chloride 0.9% infusion Continuous PRJama Benavides MD Stopped at 11/04/21 2200 ??? iohexoL (Omnipaque) (350 mg/mL) solution Once PRN Jama Melo MD 12 mL at 11/04/211815 ??? niCARdipine (Cardene) (0.2 mg/mL) in sodium chloride 200 mL infusion 5 mg/hr Intravenous Continuous Fausto Earl MD 25 mL/hr at 11/05/21 0800 5 mg/hr at 11/05/21 0800 ??? AMIOdarone (Cordarone) (1.8 mg/mL) in dextrose 5% 200 mL infusion 0.5-1 mg/min Intravenous Continuous Richard Asher MD 33.3 mL/hr at 11/05/21 0800 0.999 mg/min at 11/05/21 0800 METHODS: A 21 channel digitized continuous electroencephalogram with video was set up and recording started at 11:05 on 11/04/2021. Following explanation of the procedure, the 10/20 international system of electrode placement was used to determine electrode placement and disposable MRI conditional electrodeswere applied using the paste/collodion method of application. In addition to EEG the patient was monitored for EKG. Video was recorded during the session. BOAT DRIVER'S REPORT: Performed by: Leon Clark At the onset of the recording the patient was Intubated. Movement and other artifact was not significant. Comments:None [facility] Department of Neurology Critical Care Continuous EEG Report Patient: Aniya Lundy, [id number] Date: 11/05/21 Start Time/End time: 11/04/21 11:04 -16:14 (EEG leads disconnected for cardiac catheterization); 20:14-05:00 11/05/21 Duration: 17 hours, 6 minutes Background Symmetry Symmetric Continuity Continuous Breach Present Absent PDR Absent Background EEG Frequency Delta, intermittent superimposed alpha/beta AP Gradient Present Absent Variability Present Reactivity Present Voltage Normal Stage II Sleep Transients Absent Periodic/Rhythmic Patterns No Sporadic Epileptiform Discharges Prevalence None Clinical/push button events 00:55 11/05/21 Clinical: eye rolling, limb stiffening EEG: no abnormal epileptiform correlates 01:40 11/05/21 Clinical: The patient exhibits two generalized body jerks (01:39:39 and 01:40:04, arms/legs raise, blinking EEG: no abnormal epileptiform correlates Interpretation This continuous video EEG is abnormal due to the presence of continuous generalized delta slowing, at times with superimposed alpha/beta activity. The push button clinical events at 00:55 for eye rolling/limb stiffening and at 01:40 for two generalized myoclonic jerks did not exhibit epileptiform correlates. Clinical Correlation This day #1 of EEG is suggestive of moderate to marked diffuse cerebral dysfunction of a nonspecific etiology. No seizures or epileptiform discharges are observed. The clinical push button events for eye rolling/stiffening and for two myoclonic jerks did not havecorresponding EEG changes and therefore are not consistent with epileptic seizures. Leonora Mandujano MD Epilepsy Fellow PGY-6 11/05/2021 EPILEPSY ATTENDING ADDENDUM - I reviewed the EEG with the [employer]/Epilepsy fellow, and I agree with the interpretation as documented. Darien Zavala MD, PhD Professor of Neurology [facility] Epilepsy Center Clinical Neurophysiology Laboratory [facility] documented in this encounter Nursing Notes * Zora Booth RN - 11/12/2021 4:06 PM EST 15:38 Pt arrived to PACU. Drowsy, awakens to voice. Midline and L lateral incisions dry and intact with gauze and tegaderm. 16:05 Report called to SYBIL Krishna documented in this encounter ED Notes * Tio Cuevas NRP - 11/04/2021 1:50 PM EST Trop is 0.24. Lab Call * Jennifer Almaraz RN - 11/04/2021 1:27 PM EST Report given to RN on ICU. * Jennifer Almaraz RN - 11/04/2021 12:12 PM EST Pt received 1 L NS from EMS, which is now complete after being used as KVO for med infusions. Second Liter of 0.9% saline up and running KVO. * Jennifer Almaraz RN - 11/04/2021 11:03 AM EST Called [facility] for covid results. They report that it was just logged an hour ago, and we should have results in 1.5 hours. * Tio Cuevas NRP - 11/04/2021 10:15 AM EST EEG is at bedside. * Jennifer Almaraz RN - 11/04/2021 9:30 AM EST Temperature sensing yang catheter placed. * Gabriela Astorga RN - 11/04/2021 8:45 AM EST Fiance called. Updated from Attending . * Gabriela Astorga RN - 11/04/2021 8:30 AM EST Mother called. Updated from Attending . [phone] would appreciate updates. * Horace Nielsen MD - 11/04/2021 7:57 AM EST Images from the original note were not included. ED STAFF NOTE Aniya Lundy is a 36 y.o. female who presents to the emergency department to be via EMS for an out of hospital VF cardiac arrest status post 1 shock. EMS was activated by her boyfriend who per EMS report provided approximately 10 minutes of CPR. EMS found her pulseless and did 2 minutes of CPR,she was found in ventricular fibrillation status post 1 shock. She was not ventilating initially and had an eye gel placed. As the transport progressed she was biting on the eye gel and it was removed with [id number] ventilation followed by jaw thrust and end-tidal with adequate ventilation. She received 2 pushes of 10 mcg of epinephrine in route. She had a blood sugar of 190. She withdrew but did not follow commands. Her initial oxygen saturations were in the 90s with supplemental oxygen. She did not have a return of normal mental status. Reviewing her chart she has a history of anxiety and depression. On prozac and zofran (QTC prolonging meds). She was most recently seen at the [facility] emergency department onOctober 101 for atypical chest pain with an unremarkable work-up. I spoke to her other at 8:15. She knows that she has been having intermittent chest pain and possible GI symptoms. Reporrst Call back is [phone] Spoke to dk at 8:40. Woke Dk up this morning. She awoke from sleep with severe heart burn, palpitations, asked for a wet wash cloth, When Dk went down stairs he heard that she made a moaning noise. She was not responsive and was blue and unresponsive. Called 911 and then CPR at home. No drug used. Over the past few months she has been having intermittent blurred vision and numbness and tingling. ?? Gaviscon (mag/aluminim/sodium bicarb/alginc) liquid antacid. Drank bottle in the past 24 hours ?? Pantoprazole 40mg daily ?? Famotidine 40mg ?? Nexium 20mg daily ?? Klonopin 1mg BID (doesn't take twice per day) ?? Prazosin 1mg ?? Lisinopril 10mg daily ?? Ibuprofen ?? Tylenol Recall on home CPAP for YOON. It was provided ED Resuscitation Course: ?? Signout form EMS, normal glucose, ETCO2 30-40, Intermittent jaw thrusts, gagging, and saliva present. ?? Narrow complex sinus tach ?? No pericardial effusion on TTE, poor windows with defib pads. ?? Stable BP and sat on NRB ?? Obs for 10-15 minutes without improvement. After vomiting type episode then decision made to intubate. ?? VBG 7.09/66, BE -10, lactate 6.5, K 4.48 ?? Intubated and OGT place. ?? Briefly on norepi afterwards ?? A line placed. ?? Cardiology consulted ?? ABG post intubation and arterial line: 7.23/44/199, lactate 2.15 Prehospital EKG EXAM: Last value Range last 24 hrs Temperature Temp: 36.2 ??C (97.2 ??F) Temp: [36.2 ??C (97.2 ??F)] Heart Rate Heart Rate: 78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 Pharmacists??? therapeutic drug monitoring will continue for patients receiving vancomycin. Should specific assistance be needed regarding re- initation or continuation of vancomycin therapy, please page the care area pharmacist with any questions you may have. Alternately, during off-hours you nat alden call [phone] to contact a pharmacist. * Consult Note - Morgan Malin MD - 11/08/2021 8:09 AM EST Neurology Inpatient Consult Note Patient name:Aniya Lundy Date of :1985 Admit date: 11/04/2021 Attending: Valorie Obrien MD ID:??Aniya Lundy??is a 36 y.o.??female??with PMHx of depression and anxiety who presented withcardiac arrest. Neurology is being consulted for concern of seizure. ?? Interval Hx: -??Extubated 11/07 - TCD not obtained - MRI / MRA not obtained - Rheum consulted - EEG without seizures - Remains on nicardipine drip for vasospasm Past Medical History: Past Medical History: Diagnosis [...] ENDOSCOPY performed by Dudley Alva MD at [facility] ENDOSCOPY Medications: Scheduled Meds: ??? ceFEPime (Maxipime) 2g vial attach to sodium chloride 0.9% 100 mL Mini-Bag Plus 2 g [id number] ??? amLODIPine 5 mg Oral Daily ??? vancomycin 1.5 g Intravenous Q12H ??? [START ON 11/09/2021] Vancomycin Level - MAR Order Reminder NOT APPLICABLE Once ??? enoxaparin 40 mg Subcutaneous Nightly ??? Vancomycin Level - MAR Order Reminder NOT APPLICABLE Once ??? lidocaine 3 patch Transdermal Q24H And ??? lidocaine 3 patch Transdermal Q24H ??? metroNIDAZOLE 500 mg Intravenous Q8H SONALI ??? atorvastatin 40 mg Oral QPM ??? famotidine 20 mg Oral BID ??? chlorhexidine 15 mL Oral BID ??? white petrolatum-mineral oiL 1 each Both Eyes BID ??? sodium chloride 0.9 % (flush) 5 mL Intravenous BID ??? white petrolatum-mineral oiL Topical (Top) Q8H SONALI Continuous Infusions: ??? tube feeding diet ??? dexmedetomidine Stopped (11/07/21 1645) ??? NORepinephrine 0 mcg/min (11/07/21 0700) ??? lidocaine (pf) 15 mL/hr at 11/05/21 0500 ??? nitroGLYcerin Stopped (11/04/21 2116) ??? sodium chloride 0.9% Stopped (11/04/21 2200) ??? niCARdipine 5 mg/hr (11/08/21 0600) PRN Meds:.midazolam (PF), senna, polyethylene glycoL (MIRALAX) oral powder, sodium chloride 0.9 % (flush), nitroGLYcerin, busPIRone, lidocaine (pf), nitroGLYcerin, sodium chloride 0.9%, iohexoL Allergies: Allergies Allergen Reactions ??? Augmentin [Amoxicillin-Pot Clavulanate] Rash Unsure if allergic ??? Ipratropium Other (See Comments) ??? Morphine Other (See Comments) Cannot recall ??? Penicillins Rash ??? Seroquel [Quetiapine] Other (See Comments) Made head feel loopy. Family history: Family History Problem Relation Age of Onset ??? Migraines Mother ??? Cancer Mother Social history: Social History Socioeconomic History ??? Marital status: [...] Housing Stability: Not on file Physical Exam: Patient Vitals for the past 24 hrs: Temp Heart Rate From SP02 Pulse Resp BP SpO2 FiO2 (%) O2 Flow Rate (L/min) O2 Device 11/07/21 0821 -- 66 bpm 67 18 -- 100 % -- -- -- 11/07/21 0900 -- 70 bpm 70 18 119/55 98 % -- -- -- 11/07/21 1000 -- 66 bpm 66 18 105/46 99 % -- -- -- 11/07/21 1100 -- 67 bpm 67 18 112/52 99 % 50 % -- Ventilator 11/07/21 1135 -- -- -- -- -- 99 % -- -- -- 11/07/21 1200 37.9 ??C (100.2 ??F) 70 bpm 70 18 -- 97 % -- -- -- 11/07/21 1425 (!) 38 ??C (100.4 ??F) (!) 105 bpm (!) 106 23 124/70 97 % 40 % -- Ventilator 11/07/21 1500 -- (!) 124 bpm (!) 122 27 145/69 97 % -- -- -- 11/07/21 1600 -- 92 bpm 92 15 123/69 98 % -- -- -- 11/07/21 1615 -- -- -- 22 -- 99 % -- -- -- 11/07/21 1700 -- 81 bpm 81 16 123/66 94 % 100 % 5 L/min NC 11/07/21 1800 -- 81 bpm 81 15 127/64 93 % -- 5 L/min NC 11/07/21 1900 -- 89 bpm 89 13 119/67 93 % -- -- -- 11/07/21 2000 -- 92 bpm 92 15 138/65 91 % 100 % 5 L/min NC 11/07/21 2100 -- 62 bpm 95 17 129/65 100 % -- -- -- 11/07/21 2200 -- 95 bpm 96 18 131/67 93 % 100 % 5 L/min NC 11/07/21 2300 -- 94 bpm 94 19 130/68 96 % -- -- -- 11/08/21 0000 -- 100 bpm 100 18 138/73 95 % 100 % 5 L/min NC 11/08/21 0100 -- 96 bpm 96 16 138/71 95 % -- -- -- 11/08/21 0200 -- 96 bpm 97 26 135/68 96 % 100 % 5 L/min NC 11/08/21 0300 -- 98 bpm 99 18 157/62 96 % 100 % 5 L/min NC 11/08/21 0400 -- 100 bpm 100 18 138/59 96 % -- -- -- 11/08/21 0500 -- (!) 103 bpm (!) 102 17 (!) 151/117 94 % -- -- -- 11/08/21 0600 -- (!) 102 bpm (!) 101 23 134/63 95 % -- -- -- Neuro exam: MS: Awake, alert, oriented to person, place (hospital), not orientated to year (2020) or month (September) No dysarthria, language fluent, cooperative with neuro exam CN: Pupils 4mm ERRL, EOMI, visual garcia full to confrontation Facial sensation intact to light touch No facial asymmetry Hearing intact to voice Palate elevates symmetrically, tongue protrudes midline SCM and trap strength intact Motor: Normal bulk and tone. No pronator drift. Hand rolling intact. UE: 2/5 R, 2/5 L Arm abduction at shoulder 3/5 R, 3/5 L Elbow extension 3/5 R, 3/5 L Elbow flexion 5/5 R, 5/5 L [facility] LE: 5/5 R, 5/5 L Hip flexion 5/5 R, 5/5 L Knee extension 5/5 R, 5/5 L Knee flexion 5/5 R, 5/5 L Foot dorsiflexion 5/5 R, 5/5 L Foot plantar flexion Sensation: Intact to light touch in upper extremities. Altered sensation in L lower extremity in all dermatomes. Reflexes: DTRs 2+ R, 2+ L Biceps 2+ R, 2+ L Brachioradialis 2+ R, 2+ L Triceps 2+ R, 2+ L Patellar 2+ R, 2+ L Achilles tendon Babinski - R down, L unequivocal Coordination: no dysmetria on finger to finger Heel-john intact No tremor Gait: Deferred Labs: Recent Results (from the past 24 hour(s)) BLOOD GAS 2 ARTERIAL Result Value Ref Range pH Art 7.34 (L) 7.35 - 7.45 pCO2 Art 37 35 - 45 mmHg pO2 Art 88 85 - 104 mmHg HCO3 Art 19.2 (L) 20.0 - 26.0 mmol/L BE Art -6.7 (L) -3.0 - 3.0 mmol/L Hgb Blood Gas 8.4 (L) 11.7 - 15.5 g/dL O2HB Art 94.8 94.0 - 97.0 % COHB Art 0.1 % METHB Art 0.9 <=1.5 % Na Whole Blood 134 (L) 135 - 145 mmol/L K Whole Blood 4.3 3.5 - 5.0 mmol/L ICa Whole Blood 1.11 (L) 1.15 - 1.33 mmol/L CL Whole Blood 111 (H) 98 - 107 mmol/L Gluc Whole Bld 90 65 - 199 mg/dL Lactate WB 0.6 0.5 - 2.2 mmol/L FIO2 Art 40 % PF Ratio Art 220 Vancomycin, trough Result Value Ref Range Vanc Trough 11.1 mg/L Basic Metabolic Panel (non-fasting) Result Value Ref Range Glucose Lvl 117 65 - 199 mg/dL BUN 12 8 - 18 mg/dL Creatinine 1.00 0.70 - 1.20 mg/dL Sodium 141 135 - 145 mmol/L Potassium 4.0 3.5 - 5.0 mmol/L Chloride 108 (H) 98 - 107 mmol/L CO2 23 22 - 31 mmol/L Anion Gap 10 5 - 15 mmol/L Calcium 8.3 (L) 8.5 - 10.5 mg/dL Estimated GFR 72 >=60 mL/min/1.73 m?? Hemogram Result Value Ref Range WBC 18.3 (H) 4.0 - 9.5 x10(3)/mcL RBC 3.30 (L) 4.00 - 5.21 x10(6)/mcL Hemoglobin 8.6 (L) 11.7 - 15.5 g/dL Hematocrit 27.3 (L) 35.7 - 45.8 % MCV 82.7 82.6 - 94.4 fL MCH 26.1 (L) 27.1 - 32.0 pg MCHC 31.5 (L) 31.7 - 35.0 g/dL Platelets 154 145 - 357 x10(3)/mcL RDWSD 51.0 (H) 37.0 - 46.0 fL RDWCV 16.8 (H) 11.5 - 14.1 % MPV 11.5 7.6 - 12.9 fL nRBC % Auto 0.0 % nRBC Abs Auto 0.000 0.000 - 0.000 x10(3)/mcL Differential, Automated Result Value Ref Range Neutrophils % 86.8 % Neutr Abs (ANC) 15.88 (H) 1.70 - 6.10 x10(3)/mcL Lymphocytes % 5.4 % Lymphocytes Abs 1.0 0.9 - 3.2 x10(3)/mcL Monocytes % 5.9 % Monocyte Abs 1.1 (H) 0.3 - 0.9 x10(3)/mcL Eosinophils % 0.7 % Eosinophils Abs 0.1 0.0 - 0.4 x10(3)/mcL Basophils % 0.3 % Basophils Abs 0.0 0.0 - 0.1 x10(3)/mcL Immature Gran % 0.90 % Jena Gran Abs 0.16 (H) 0.00 - 0.04 x10(3)/mcL Scan, Peripheral Blood Result Value Ref Range Plat Estimate Normal RBC Morphology Abnormal Hypochromia Slight Ovalocytes 1-5 /HPF Diagnostic Tests and Imaging: Assessment: Aniya Lundy is a 36 y.o. female with PMHx of depression and anxiety who presented with cardiacarrest. Neurology is being consulted for concern of seizure. ?? Cognition appears at baseline despite residual fatigue. Large infarct less likely given reassuring examination with ability to move all of her extremities. However, proximal muscle weakness present in bilateral arms, likely limited by pain. She reports diffuse numbness and possible babinski presentin L foot, but strength in her LLE preserved. Symptoms unlikely to be secondary to infarction, but MRI and MRA brain could show evidence of prior vasospasm. No evidence of seizures or abnormal signalling on EEG to suggest ischemia and will discontinue. Given her proximal arm weakness, will suggest MRI cervical spine without contrast to assess for any cervical spine complications from intubation. Recommendations: - Discontinuation of EEG - Obtain MRI brain and cervical spine wo + MRA head wo Morgan Malin MD 11/08/2021 Consult Neurology Pager [phone] Associated attestation - Tiffany Unger DO - 11/08/2021 2:18 PM EST Neurology Staff Note I have reviewed the resident's history during the visit and I agree with the details as written. Myphysical examination confirms the resident's findings. The assessment and plan were formulated in discussion with me at the time of the visit and I agree with them as documented. Patient seems to have weakness of the arms, more proximally. Given also the possible babinski on the left, I would recommend MRI/MRA brain, MRI c spine when medically able. Tiffany Unger D.O. Neurology Department [email or web address] Consult Note - Pantera Denton MD - 11/07/2021 6:33 PM EST Cardiac Electrophysiology Consult Note Date of Consultation: 11/08/2021 Admit Date: 11/04/2021 Place of Service: Inpatient Unit Responsible Attending: Pantera Denton MD Reason for Consult: We are seeing Aniya Lundy at the request of Dr. Obrien for the evaluationof OOH VF arrest, review ICD.candidacy I have reviewed the available records, interviewed and examined the patient. Active Problem List: Patient Active Problem List Diagnosis ??? Coronary artery vasospasm ??? *History of COVID-19 ??? Cardiac arrest ??? Gastroesophageal reflux disease Overview Note: Added automatically from request for surgery [id number] ??? Borderline personality disorder ??? Post-traumatic stress [...] ??? Tachycardia History of Present Illness: Aniya Lundy is a 36 y.o. female with a history of no prior cardiac history who presented with OOH VF cardiac arrest. She was found unresponsive in her bedroom by her boyfriend who administered CPR for around 10 minutes before EMS arrived and found her in VF arrest. One shock was reportedly administered and IV epinephrine x 2 prior to ROSC. She was transported to [facility] where she sometime on FridayNovember 05 went back into VFIb requiring several shocks. She had a cardiac catheterization that showed severe coronary vasospasm involving thefemoral artery when the catheter was introduced. There was no obstructive CAD observed (although RCA was not studied due to limitations from recurrent VFib). She was intubated and placed on a Nicardepine drip which helped to keep her out of VF. She was progressively weaned off sedation and was extubated on November 07, 2021. She is responsive to simple inquiries (yes or no) and is alert to external stimuli. She had no significant arrhythmias or events on telemetry over last 12 hours. Last 12-lead EKG on 11/05/2021 showed sinus bradycardia 44 bpm with non-specific ST abnormality and no significant changes overall compared to previous. Echo on 11/04/2021 showed normal LV systolic function EF 68% without segmental wall motion abnormalities, normal RV systolic function, and no significant hemodynamic structural abnormalities. Review of Systems: Unable to be reviewed with patient PMH: Past Medical History: Diagnosis Date ??? *History of COVID-19 11/05/2021 ??? Anorexia ??? Anxiety 08/03/2014 ??? Asthma 08/03/2014 ??? Flaherty's palsy ??? Chest pain 01/17/2016 ETT 2013- negative ST III Echo 2013 ??Normal LV size and function, trivial TR, mild PI ??? 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 Depression ??? Headache ??? Hypertension 08/03/2014 Pertinent Medications: Current Facility-Administered Medications Ordered in Epic Medication Dose Route Frequency Provider Last Rate Last Admin ??? enoxaparin (Lovenox) (40 mg/0.4 mL) subcutaneous injection 40 mg 40 mg Subcutaneous Nightly Jerrod Muse MD 40 mg at 11/07/21 2115 ??? Vancomycin Level - MAR Order Reminder NOT APPLICABLE Once Valorie Obrien MD ??? amLODIPine (Norvasc) tablet 5 mg 5 mg Oral Daily Prashant Johnson MD ??? vancomycin- intermittent dosing per levels NOT APPLICABLE Per Pharmacy Tameka Spann MD ??? dexmedetomidine (Precedex) (4 mcg/mL) in sodium chloride 0.9% 100 mL infusion 0-1.7 mcg/kg/hr Intravenous Continuous Jerrod Muse MD Stopped at 11/07/21 1645 ??? lidocaine (Lidoderm) 5% patch 3 patch 3 patch Transdermal Q24H Shana Zurita MD 3 patch at 11/07/21 1744 And ??? lidocaine (Lidoderm) topical patch REMOVAL 3 patch Transdermal Q24H Shana Zurita MD ??? ceFEPime (Maxipime) 2g vial attach to sodium chloride 0.9% 100 mL Mini-Bag Plus 2 g 2 g Intravenous Q12H Yonas Olivares MD Stopped at 11/08/21 0100 ??? metroNIDAZOLE (Flagyl) 500 mg in sodium chloride 0.9% 100 mL infusion 500 mg Intravenous Q8H SONALI Yonas Olivares MD 200 mL/hr at 11/08/215 500 mg at 11/08/21414 ??? midazolam (pf) (Versed) (1 mg/mL) injection 1 mg 1 mg Intravenous Q4H PRN Richard Asher MD 1mg at 11/05/21 0241 ??? atorvastatin (Lipitor) tablet 40 mg 40 mg Oral QPM Jerrod Muse MD 40 mg at 11/07/21 1737 ??? senna (Senokot) tablet 8.6 mg 8.6 mg Oral BID PRN Jerrod Muse MD 8.6 mg at 11/06/21 0800 ??? polyethylene glycoL (Miralax) packet 17 g 17 g Oral Daily PRN Jerrod Muse MD 17 g at 11/06/21 0800 ??? NORepinephrine (Levophed) (16 mcg/mL) in dextrose 5% 250 mL infusion 0-100 mcg/min Intravenous Continuous Uday Alves MD 0 mL/hr at 11/07/21 0700 0 mcg/min at 11/07/21 0700 ??? famotidine (Pepcid) tablet 20 mg 20 mg Oral BID Uday Alves MD 20 mg at 11/07/212114 ??? chlorhexidine (Peridex) 0.12 % oral solution 15 mL 15 mL Oral BID Uday Alves MD 15 mL at 11/07/21 0946 ??? white petrolatum-mineral oiL ophthalmic ointment 1 each Both Eyes BID Uday Alves MD 1 each at 11/07/21 0947 ??? sodium chloride 0.9 % (flush) (BD PosiFlush Normal Saline 0.9) flush 5 mL 5 mL Intravenous BID Uday Alves MD 5 mL at 11/07/212126 ??? sodium chloride 0.9 % (flush) (BD PosiFlush Normal Saline 0.9) flush 5-20 mL 5-20 mL Intravenous Q1 Min PRN Uday Alves MD ??? nitroGLYcerin (Nitrostat) disintegrating tablet 0.4 mg 0.4 mg Sublingual Q5 Min PRN Uday Alves MD ??? busPIRone (Buspar) tablet 30 mg 30 mg Oral Q8H PRN Uday Alves MD ??? white petrolatum-mineral oiL (Eucerin) cream Topical (Top) Q8H SONALI Uday Alves MD Given at 11/06/21 2200 ??? lidocaine (pf) (Xylocaine) (4 mg/mL) in dextrose 5% 500 mL infusion Continuous PRN Jama Melo MD 15 mL/hr at 11/05/21 0500 Rate Verify at 11/05/21 0500 ??? nitroGLYcerin (200 mcg/mL) in dextrose 5% 250 mL infusion Continuous PRN Jama Melo MD Stopped at 11/04/212115 ??? sodium chloride 0.9% infusion Continuous PRN Jama Melo MD Stopped at 11/04/212199 ??? iohexoL (Omnipaque) (350 mg/mL) solution Once PRN Jama Melo MD 12 mL at 11/04/211815 ??? niCARdipine (Cardene) (0.2 mg/mL) in sodium chloride 200 mL infusion 5 mg/hr Intravenous Continuous Fausto Earl MD 25 mL/hr at 11/08/21 0448 5 mg/hr at 11/08/21 0448 No current [facility] outpatient medications on file. Family History: Family History Problem Relation Age [...] on file Physical Exam: Vital signs: Vitals: 11/07/21 2300 11/08/21 0000 11/08/21 0100 11/08/21 0200 BP: 130/68 138/73 138/71 135/68 BP Location (NBP): Patient Position: Pulse: 94 100 96 97 Resp: Temp: TempSrc: SpO2: 96% 95% 95% 96% Weight: Height: General- Sedated, yet easily arousable; Alert and oriented to self, no acute distress HEENT- Head atraumatic, normocephalic Skin- Warm and dry Neck- No JVD noted Cardiovascular- S1/S2 regular rate and rhythm. No murmur, rub or gallop Lungs- Clear to auscultation bilaterally Extremities- Pulses equal bilaterally. No edema noted Neuro- A&Ox3 Labs: Lab Results Component Value Date WBC 18.3 (H) 11/08/2021 HGB 8.6 (L) 11/08/2021 HCT 27.3 (L) 11/08/2021 PLATELET 154 11/08/2021 Recent Labs 11/06/21 0425 INR 1.1 Lab Results Component Value Date NA 141 11/08/2021 K 4.0 11/08/2021 CL 108 (H) 11/08/2021 BUN 12 11/08/2021 CREATININE 1.00 11/08/2021 MAGNESIUM 0.86 11/07/2021 Assessment: 1. OOH VF arrest in setting of #2 2. Coronary vasospasm, on Nifedipine gtt 3. Preserved LVEF 4. Anxiety/depression 5. Bipolar disorder, on several QTc prolong medications, without significant QTc prolongation on multiple EKG's 6. Sinus bradycardia on EKG's without evidence of accessory pathway, Brugada or other electrical abnormalities Recommendations: - In setting of OOH VF arrest, patient is a candidate for secondary prevention ICD. Given her youth, it would be reasonable to consider subcutaneous ICD, however, given her recent state of recurrent VF in setting of relatively recent coronary vasospasm, it would not be desirable time to attempt testing of subcutaneous ICD to ensure ability to rescue patient from future VF arrest. A transvenous ICD would certainly have higher guarantee of rescue future VF events, but would pose higher risk of long-term lead fracture and requirement of multiple ICD generator changes. These issues will need to be sorted out and discussed with patient/family once she is able. - Continue calcium channel nash for primary treatment of coronary vasospasm as primary team is doing. - Keep Mg >1 and K > 4 - Continue to monitor on telemetry - Keep Zoll defibrillator at bedside Consult service will continue to follow patient. EDEN Mckinney 11/07/2021 5:29 PM Pager: [phone] Attending: Pantera Denton MD Service Pager: [phone] Addendum I personally interviewed and examined the patient. There was limited history available from Ms. Lundy. As noted above she presented with out of hospital VF arrest, with further VF episodes while in the label remover and on the unit. The only associated mechanism appears to be vasospasm. She is a candidate for a secondary prevention ICD - although we discussed this in superficial detail today, she is not really able to understand the implications, so further discussion will be necessary as her neurological condition improves. Given the apparent history of cocaine and heroin use, it would be better to plan for a SQ ICD (and perhaps defer DFT testing for a month or so after implant). Prior to this, we will need to perform SQ ICD 'screening'. As of today, she has not yet been out of bed. When she is able to stand, we will proceed with the SQ ICD screen; presuming that she screens 'in' and agrees to the procedure, we may be able to perform this early next week. In the meantime, would agree with maximising the aggressive treatment of coronary vasospasm. We will follow with you PANTERA DENTON MD * Consult Note - Michael Pak MD - 11/07/2021 1:01 PM EST Rheumatology Inpatient Consult Note Reason for Consult: Aniya Lundy is a 36 y.o. female with history medical history that includesrecent COVID-19 (09/27/2021), HTN, anxiety, depression, bipolar disorder, substance use including current nicotine use, reported heroin use (per mother), and cocaine use (per chart review) who we are seeing today at the request of Valorie Obrien MD for evaluation for rheumatologic causes of iliofemoral and coronary vasospasm. HPI: Patient is currently intubated and sedated. History gathered from chart review. Patient presented on 11/04/2021 after suffering an out of hospital VF arrest at home. This was witnessed by her boyfriend Dk. She reportedly awoke from sleep with symptoms of severe heartburn and palpitations. She asked Dk for a washcloth and when he returned, she was found unresponsive. Dk performed 10 minutes of bystander CPR before EMS arrival. She was found in VF arrest and received 2 minutes of CPR, 1 shock, and 2 rounds of epinephrine with ROSC. Please see admission H&P for details. Relevant work-up to date includes the following: ?? Labs on arrival were significant for WBC 26, K 5.5, Cr 1.56, D-dimer was 5000, troponin was 0.02and peaked at 0.24. ?? A UDS was positive for benzodiazepines. ?? ECG showed sinus tachycardia, QTC 484, no acute ischemic changes. ?? CTA PE was negative for PE. ?? Echocardiogram with EF 68%, no wma, normal ventricular wall thickness, no valvular abnormalities. ?? CT head was negative for bleed, showed cerebral edema. ?? Carotid duplex was limited but the segments that were visualized were normal. ?? Cardiac catheterization on 11/06/2021 resulted in severe ileofemoral spasm, as well as severe diffuse left coronary spasm resulting in VF that was responsive to shock, w/o significant obstructive CAD. ?? CRP 29.1, ESR <3, DARIAN <1:80, NILAY neg. During cardiac cath yesterday, patient was found to have ileofemoral and L coronary vasospasm ->VT/VF arrest multiple times, shock responsive but eventually needing nicardipine drip to remain NSR. Patient's cath was concluded without evaluation of the right coronaries. Attempted to contact zay Root by phone but was not able to reach him. Contacted mother Shannon by phone. Per mother, patient does not have a history of dry eyes, dry mouth, joint pain, rashes, photosensitivity, alopecia, oral nasal or genital ulcers, rashes, blood clots,iritis, uveitis. She has had one miscarriage at approximately 10 weeks. No known cocaine or heroin use. Patient does have frequent diffuse leg, arm pain that are localized to joints and chronic symptoms of fatigue. She does have weight fluctuations frequently and generalized headaches of unknown frequency. Patient was not vaccinated for COVID-19. Mother denies any patient or FH of any rheumatologic conditions (such as gout/CPPD, SLE, SS, Scleroderma, rheumatoid or psoriatic arthritis). ROS Unable to assess as patient is currently intubated, sedated. PMHx: Past Medical History: Diagnosis Date ??? *History of COVID-19 11/05/2021 ??? Anorexia ??? Anxiety 08/03/2014 ??? Asthma 08/03/2014 ??? Flaherty's palsy ??? Chest pain 01/17/2016 ETT 2013- negative ST III Echo 2013 Normal LV size and function, trivial TR, mild PI ??? 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 Depression ??? Headache ??? Hypertension 08/03/2014 SurgHx: Past Surgical History: Procedure Laterality Date ??? DILATION AND CURETTAGE OF UTERUS x2 ??? PRO UPPER GI ENDOSCOPY, DIAGNOSTIC N/A 01/09/2021 EGD, UPPER GI ENDOSCOPY performed by Dudley Alva MD at [facility] ENDOSCOPY FamHx: Patient's mother does endorse a history of psoriatic and rheumatoid arthritis. Denies any other FH of rheumatologic conditions SocHx: Tob: current, reportedly severe smoking EtOH: unknown, not able to assess Illicits: reportedly remote heroin use, cocaine use several years ago on chart review Vitals: Last value 24hr range T 37.8 ??C (100 ??F) Temp: [37.1 ??C (98.8 ??F)-38 ??C (100.4 ??F)] HR 69 Heart Rate: [47-82] BP 122/53 BP: (93-124)/(46-56) RR 16 Resp: [14-20] SpO2 99 % ventilated SpO2: [92 %-100 %] Physical Exam: General: Intubated, sedated HEENT: Mucous membranes are moist, pinpoint pupils. No ulcers visible. Cardiovascular: RRR, no m/r/g Abdomen: Soft, nontender, nondistended, normal active bowel sounds. Yang catheter in place. Neuro: Sedated. Does move spontaneously in response to examination. Skin: no rashes or lesions noted. Some erythema around IV insertion site. Nails: no nail pitting, no periungual telangiectasia. capillaroscope attempted but could not visualize her capillaries. She does have nail libyan on. Extremities: Warm and well perfused, 2+ pulses. No edema. Musculoskeletal: No red/hot/swollen joints or joint deformities. Labs: Last 3 Lytes Recent Labs 11/07/21 0030 11/06/21 0425 11/05/21 1406 NA 139 138 137 K 5.2* 4.5 4.3 CL 111* 108* 108* CO2 18* 19* 19* BUN 14 14 15 CREATININE 1.55* 1.34* 1.17 Last 3 LFTs Recent Labs 11/06/21 0425 11/04/21 0735 10/10/21 1721 AST 107* 72* 16 ALT 64* 79* 29 ALKPHOS 61 88 84 BILITOT 0.2 0.2 0.2 BILIDIR 0.2 -- <0.2 Last CRP, SEDRATE Recent Labs 11/05/21 0627 11/05/21 0108 CRP 29.1* -- SEDRATE -- <3 Last CBC Lab Results Component Value Date WBC 21.4 (H) 11/07/2021 RBC 2.94 (L) 11/07/2021 HGB 8.0 (L) 11/07/2021 HCT 25.3 (L) 11/07/2021 MCV 86.1 11/07/2021 MCH 27.2 11/07/2021 MCHC 31.6 (L) 11/07/2021 PLATELET 132 (L) 11/07/2021 RDWCV 17.1 (H) 11/07/2021 Relevant work-up to date includes the following: ?? Labs on arrival were significant for WBC 26, K 5.5, Cr 1.56, D-dimer was 5000, troponin was 0.02and peaked at 0.24. ?? A UDS was positive for benzodiazepines. ?? ECG showed sinus tachycardia, QTC 484, no acute ischemic changes. ?? CTA PE was negative for PE. ?? Echocardiogram with EF 68%, no wma, normal ventricular wall thickness, no valvular abnormalities. ?? CT head was negative for bleed, showed cerebral edema. ?? Carotid duplex was limited but the segments that were visualized were normal. ?? Cardiac catheterization on 11/06/2021 resulted in severe ileofemoral spasm, as well as severe diffuse left coronary spasm resulting in VF that was responsive to shock, w/o significant obstructive CAD. ?? CRP 29.1, ESR <3, DARIAN <1:80, NILAY neg. Assessment: 36 y.o. female with history of recent COVID19 infection, anxiety, depression, substance use who presented in cardiac arrest with significant coronary and iliofemoral vasospasm. Rheumatology consultedfor consideration of autoimmune causes of vasospasm and related work-up. There are no inflammatory/autoimmune causes of vasospasm. Vasospasm does have a broad differential with etiology that may include drug- induced, infectious, or other. The primary team is working on a cardiac diagnosis to explain her presentation. Risk factors included reportedly severe current tobacco use, but besides this, she does not appear to have significant cardiac risk factors. We will defer to the primary team for further evaluation of this. Infectious etiologies include [id number] infection coronary vasospasm which has been previously described [1], and may occur several weeks following initial infection. Prinzmetal angina has also been associated following COVID-19 infection [2], and she may have been having recurrent episodes of this as manifested by her GERD-like symptoms proceeding the event. Intracoronary nitroglycerin was used in one of the cases, will defer to primary team for consideration of this management technique. Drug-induced causes include cocaine and heroin use. Patient has documented h/o both cocaine (note from 2016 on care everywhere) and heroin (per mother) but it is unclear if the patient is a current user or not. Cocaine-induced vasospasm is a possibility. However, patient's UDS was negative for cocaine. Generally, the UDS would be expected to be positive if tested within 2-3 days of last cocaine and heroin use. With patient's history of substance use including of cocaine, worthwhile to note thatvasculitis associated with levamisole-adulterated cocaine has been considered but in this patient there are no signs or symptoms or imaging findings of vasculitis, rather the question is about vasospasm (also levamisole adultered vasculitis would present with purpura of the ears, vasculitis, and neutropenia which this patient does not have). Pheochromocytoma can present with HTN and arrhythmias. Would defer to primary team for consideration. A noninflammatory cause of vasospasm to consider is segmental arterial mediolysis is a rare nonatherosclerotic disorder of large and medium sized vessels. The pathologic process is loss of the medialmuscle causing arterial dilation and aneurysms that are due to vasospasm or a variant fibromuscular dysplasia. It typically affects the celiac, mesenteric, renal arteries, but can present in young adults with involvement in the coronary arteries. Most patient will present with life-threatening hemorrhages from aneurysmal rupture. This is a very rare disorder so it could be considered in this patient after all other etiologies have been ruled out. There are no inflammatory/autoimmune causes of vasospasm. Some differentials, listed below, were considered for evaluation but ruled out for the below mentioned reasons. Fibromuscular dysplasia was considered -- this can lead to arterial stenosis, aneurysm. It occurs more commonly in females but is typically is associated with renal and carotid arteries rather than coronary arteries. Other arteries including coronary and femoral arteries are less common but have been described. In addition, the mean age at diagnosed is 51, so this patient is younger than the expected population. Angiography would have been diagnostic, but the cath report does not comment on strings of beads appearance that is associated with fibromuscular dysplasia. Hence this was ruled out. Takayasu arteritis is a large vessel vasculitis that can cause HTN in a young patient. However, on CTA, abnormalities of the large vessels were not observed in this patient. She also did not have abnormalities in the visualized segments of the carotid vessels on duplex ultrasound. In addition, Takayasu arteritis is not typically associated with vasospasm. This patient had a vasospasm and lacked typical Takayasu exam findings of asymmetric pulses and bruits on exam. Hence this was ruled out. Polyarteritis nodosa is a vasculitis of small to mid-sized vessels. The majority of patients have constitutional features of fever, malaise, weight loss. Patients also typically have multi-system involvement of the peripheral nerves, skin, abdominal pain, kidneys. Her lack of reported constitutional symptoms or other systemic manifestations points away from MURRIETA. She does have an elevated creatinine, but this is more likely related to her recent cardiac arrest. Recommendations: - No signs or symptoms suggestive of underlying rheumatological condition. Defer ongoing medical care and work-up to primary team. - Can consider above mentioned differentials. (1) Sandra Becerra, Rodrigodebbie??jaki P, Ryan J, Moses F. Severe coronary spasm in a COVID- 19 patient. CatheterCardiovasc Interv. 2020;97(5):E273-G338. Doi:[email or web address]. (2) Onur Trujillo Sririan M. COVID-19 cardiac arrest due to Prinzmetal's angina in a previously normal heart. Clinical Case reports. 2020. [email or web address]. Patient was seen and discussed with Dr. Pak. Janeth Atkinson MD Internal Medicine, PGY-2 ATTENDING ADDENDUM The patient's history was reviewed, and I examined the patient with Dr. Isaias Hdez, the rheumatology fellow, and Dr. Janeth Atkinson MD, the Int Med PGY- 2 on service. Story as outlined above. History,exam, labs, and imaging so far do not suggest an underlying rheumatologic condition. Main vascular finding is intense vasospasm and not vasculitis. 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 Less likely is substance abuse-related vasospasm, particularly with cocaine or other sympathomimetics, although drug screen positive only for her prescribed benzodiazepines. Unsuspect ed pheochromocytoma is another cause of intense systemic vasospasm that can affect the coronaries. She does have HT. She has improved significnatly with nicardipine drip and seems to display purposeful movement beyond just posturing. Sedation is being weaned. We will follow with you, but unlikely to be one of our diseases. Michael Pak MD Staff Sandwich Maker * Consult Note - Jhony Regan DO - 11/07/2021 7:17 AM EST Neurology Inpatient Consult Note Patient name:Aniya Lundy Date of :1985 Admit date: 11/04/2021 Attending: Valorie Obrien MD ID: Aniya Lundy is a 36 y.o. female with PMHx of depression and anxiety who presented with cardiac arrest. Neurology is being consulted for concern of seizure. ?? Interval Hx: - Remains on sedation this morning Past Medical History: Past Medical History: Diagnosis [...] ENDOSCOPY performed by Dudley Alva MD at [facility] ENDOSCOPY Medications: Scheduled Meds: ??? Vancomycin Level - MAR Order Reminder NOT APPLICABLE Once ??? LORazepam 1 mg Intravenous Q8H ??? lidocaine 3 patch Transdermal Q24H And ??? lidocaine 3 patch Transdermal Q24H ??? ceFEPime (Maxipime) 2g vial attach to sodium chloride 0.9% 100 mL Mini-Bag Plus 2 g [id number] ??? metroNIDAZOLE 500 mg Intravenous Q8H SONALI ??? shift total and Settings verification 1 each Intravenous 2 Times Daily - Shift Total ??? atorvastatin 40 mg Oral QPM ??? famotidine 20 mg Oral BID ??? chlorhexidine 15 mL Oral BID ??? white petrolatum-mineral oiL 1 each Both Eyes BID ??? sodium chloride 0.9 % (flush) 5 mL Intravenous BID ??? white petrolatum-mineral oiL Topical (Top) Q8H SONALI Continuous Infusions: ??? dexmedetomidine Stopped (11/06/211999) ??? fentaNYL 100 mcg/hr (11/07/21 0600) ??? vasopressin Stopped (11/05/211813) ??? NORepinephrine 4 mcg/min (11/07/21599) ??? propofoL 40 mcg/kg/min (11/07/21599) ??? heparin (porcine) infusion Stopped (11/06/21 0759) ??? lidocaine (pf) 15 mL/hr at 11/05/21 0500 ??? nitroGLYcerin Stopped (11/04/212115) ??? sodium chloride 0.9% Stopped (11/04/212199) ??? niCARdipine 5 mg/hr (11/07/21599) ??? AMIOdarone 0.5 mg/min (11/07/21599) PRN Meds:.vancomycin- intermittent dosing per levels, Vancomycin Level - MAR Order Reminder, midazolam (PF), fentaNYL AND [] fentaNYL AND fentaNYL AND shift total and Settings verification AND Assess, senna, polyethylene glycoL (MIRALAX) oral powder, propofoL AND propofoL, sodium chloride 0.9 % (flush), nitroGLYcerin, busPIRone, heparin (porcine) AND heparin (porcine) infusion, AMIOdarone, lidocaine (pf), nitroGLYcerin, sodium chloride 0.9%, iohexoL Allergies: Allergies Allergen Reactions ??? Augmentin [Amoxicillin-Pot Clavulanate] Rash Unsure if allergic ??? Ipratropium Other (See Comments) ??? Morphine Other (See Comments) Cannot recall ??? Penicillins Rash ??? Seroquel [Quetiapine] Other (See Comments) Made head feel loopy. Family history: Family History Problem Relation Age of Onset ??? Migraines Mother ??? Cancer Mother Social history: Social History Socioeconomic History ??? Marital status: [...] Housing Stability: Not on file Review of systems: Deferred, intubated. Physical Exam: Patient Vitals for the past 24 hrs: Temp Heart Rate From SP02 Pulse Resp BP SpO2 FiO2 (%) O2 Flow Rate (L/min) O2 Device 11/06/21 0725 -- 59 bpm 71 18 -- 95 % -- -- -- 11/06/21 0755 -- 61 bpm 59 18 -- 91 % -- -- -- 11/06/21 0756 -- -- -- 18 -- 91 % -- -- -- 11/06/21 0800 36.8 ??C (98.2 ??F) 65 bpm 65 18 -- 92 % 50 % -- Ventilator 11/06/21 0900 -- 63 bpm 62 19 -- 97 % -- -- -- 11/06/21 1000 36.9 ??C (98.4 ??F) 54 bpm 54 18 -- 99 % 50 % -- Ventilator 11/06/21 1100 -- -- 55 18 -- -- -- -- -- 11/06/21 1115 -- 54 bpm 54 18 -- 95 % -- -- -- 11/06/21 1130 -- 54 bpm 54 18 -- 96 % -- -- -- 11/06/21 1145 -- 54 bpm 55 18 -- 96 % -- -- -- 11/06/21 1200 37.1 ??C (98.8 ??F) 56 bpm 56 18 -- 95 % 50 % -- Ventilator 11/06/21 1230 -- 55 bpm 55 18 -- 96 % -- -- -- 11/06/21 1300 -- 53 bpm 53 18 -- 95 % -- -- -- 11/06/21 1313 -- -- -- 18 -- 94 % -- -- -- 11/06/21 1400 -- (!) 49 bpm (!) 49 18 -- 94 % 50 % -- Ventilator 11/06/21 1500 -- (!) 48 bpm (!) 47 18 -- 96 % -- -- -- 11/06/21 1600 37.2 ??C (99 ??F) 82 bpm 82 20 117/52 93 % -- 40 L/min Ventilator 11/06/21 1755 -- -- -- 14 -- 92 % -- -- -- 11/06/21 1800 (!) 38 ??C (100.4 ??F) 75 bpm 77 14 -- 95 % 70 % -- Ventilator 11/06/21 1810 -- -- -- 16 -- 92 % -- -- -- 11/06/21 190 -- 54 bpm 54 14 -- 93 % -- -- -- 11/06/211999 37.9 ??C (100.2 ??F) 53 bpm 52 14 93/47 94 % 80 % -- Ventilator 11/06/212099 -- 55 bpm 55 19 -- 97 % -- -- -- 11/06/212111 -- -- -- -- -- 97 % 70 % -- Ventilator 11/06/212199 37.8 ??C (100 ??F) 63 bpm 63 14 -- 98 % 70 % -- Ventilator 11/06/21 2300 -- 61 bpm 61 14 -- 98 % -- -- -- 11/07/21 0000 37.8 ??C (100 ??F) 60 bpm 60 14 -- 99 % 70 % -- Ventilator 11/07/21 0100 -- 63 bpm 63 18 99/46 99 % -- -- -- 11/07/21 0200 37.6 ??C (99.7 ??F) 65 bpm 65 19 121/56 100 % 50 % -- Ventilator 11/07/21 0300 -- 62 bpm 62 14 120/56 97 % -- -- -- 11/07/21 0400 37.6 ??C (99.7 ??F) 70 bpm 67 14 124/53 97 % 50 % -- Ventilator 11/07/21 0410 -- -- -- 14 -- 98 % -- -- -- 11/07/21 0500 -- 66 bpm 66 14 122/54 99 % -- -- -- 11/07/21 0600 37.8 ??C (100 ??F) 69 bpm 69 14 122/53 99 % 50 % -- Ventilator Neuro exam: MS: Intubated and sedated on prop 50 and fentanyl 150 Arousable to verbal stimuli, does not follow simple commands CN: Pupils 2mm ERRL, eyes tracked to the right briefly but does not follow commands or track otherwise Corneal intact, cough intact No apparent facial asymmetry Motor: Normal bulk. Moved all extremities spontaneously. Sensation: Withdrew to noxious stimuli in upper and lower extremities. Reflexes: DTRs 2+ thorughout, downgoing toes bilaterally Coordination: No abnormal involuntary movement at rest Gait: deferred Labs: Recent Results (from the past 24 hour(s)) BLOOD GAS 2 ARTERIAL Result Value Ref Range pH Art 7.29 (CRIT) 7.35 - 7.45 pCO2 Art 40 35 - 45 mmHg pO2 Art 62 (L) 85 - 104 mmHg HCO3 Art 18.9 (L) 20.0 - 26.0 mmol/L BE Art -7.6 (L) -3.0 - 3.0 mmol/L Hgb Blood Gas 9.1 (L) 11.7 - 15.5 g/dL O2HB Art 89.0 (L) 94.0 - 97.0 % COHB Art 0.3 % METHB Art 0.9 <=1.5 % Na Whole Blood 128 (L) 135 - 145 mmol/L K Whole Blood 4.0 3.5 - 5.0 mmol/L ICa Whole Blood 1.06 (L) 1.15 - 1.33 mmol/L CL Whole Blood 110 (H) 98 - 107 mmol/L Gluc Whole Bld 94 65 - 199 mg/dL Lactate WB 0.9 0.5 - 2.2 mmol/L FIO2 Art 40 % PF Ratio Art 155 Lower Respiratory Culture Tracheal Aspirate Specimen: Tracheal Aspirate Result Value Ref Range Gram Stain Many Neutrophils seen Few squamous epithelial cells seen Many mixed bacterial morphotypes suggestive of normal upper respiratory al BLOOD GAS 2 ARTERIAL Result Value Ref Range pH Art 7.33 (L) 7.35 - 7.45 pCO2 Art 34 (L) 35 - 45 mmHg pO2 Art 67 (L) 85 - 104 mmHg HCO3 Art 17.5 (L) 20.0 - 26.0 mmol/L BE Art -8.4 (L) -3.0 - 3.0 mmol/L Hgb Blood Gas 8.6 (L) 11.7 - 15.5 g/dL O2HB Art 90.9 (L) 94.0 - 97.0 % COHB Art 0.3 % METHB Art 0.9 <=1.5 % Na Whole Blood 132 (L) 135 - 145 mmol/L K Whole Blood 4.0 3.5 - 5.0 mmol/L ICa Whole Blood 1.09 (L) 1.15 - 1.33 mmol/L CL Whole Blood 112 (H) 98 - 107 mmol/L Gluc Whole Bld 103 65 - 199 mg/dL Lactate WB 0.8 0.5 - 2.2 mmol/L FIO2 Art 50 % PF Ratio Art 134 BLOOD GAS 2 ARTERIAL Result Value Ref Range pH Art 7.23 (CRIT) 7.35 - 7.45 pCO2 Art 43 35 - 45 mmHg pO2 Art 71 (L) 85 - 104 mmHg HCO3 Art 17.6 (L) 20.0 - 26.0 mmol/L BE Art -9.9 (L) -3.0 - 3.0 mmol/L Hgb Blood Gas 9.4 (L) 11.7 - 15.5 g/dL O2HB Art 90.6 (L) 94.0 - 97.0 % COHB Art 0.3 % METHB Art 0.8 <=1.5 % Na Whole Blood 134 (L) 135 - 145 mmol/L K Whole Blood 4.4 3.5 - 5.0 mmol/L ICa Whole Blood 1.11 (L) 1.15 - 1.33 mmol/L CL Whole Blood 109 (H) 98 - 107 mmol/L Gluc Whole Bld 125 65 - 199 mg/dL Lactate WB 1.7 0.5 - 2.2 mmol/L FIO2 Art 70 % PF Ratio Art 101 Magnesium Result Value Ref Range Magnesium 0.80 0.69 - 1.07 mmol/L BLOOD GAS 2 ARTERIAL Result Value Ref Range pH Art 7.24 (CRIT) 7.35 - 7.45 pCO2 Art 42 35 - 45 mmHg pO2 Art 80 (L) 85 - 104 mmHg HCO3 Art 17.6 (L) 20.0 - 26.0 mmol/L BE Art -9.7 (L) -3.0 - 3.0 mmol/L Hgb Blood Gas 9.1 (L) 11.7 - 15.5 g/dL O2HB Art 93.2 (L) 94.0 - 97.0 % COHB Art 0.3 % METHB Art 0.8 <=1.5 % Na Whole Blood 131 (L) 135 - 145 mmol/L K Whole Blood 4.6 3.5 - 5.0 mmol/L ICa Whole Blood 1.13 (L) 1.15 - 1.33 mmol/L CL Whole Blood 108 (H) 98 - 107 mmol/L Gluc Whole Bld 109 65 - 199 mg/dL Lactate WB 0.9 0.5 - 2.2 mmol/L FIO2 Art 80 % PF Ratio Art 100 Basic Metabolic Panel (non-fasting) Result Value Ref Range Glucose Lvl Not Perf 65 - 199 BUN 14 8 - 18 mg/dL Creatinine 1.55 (H) 0.70 - 1.20 mg/dL Sodium 139 135 - 145 mmol/L Potassium 5.2 (H) 3.5 - 5.0 mmol/L Chloride 111 (H) 98 - 107 mmol/L CO2 18 (L) 22 - 31 mmol/L Anion Gap 10 5 - 15 mmol/L Calcium 7.6 (L) 8.5 - 10.5 mg/dL Estimated GFR 42 (L) >=60 mL/min/1.73 m?? Hemogram Result Value Ref Range WBC 21.4 (H) 4.0 - 9.5 x10(3)/mcL RBC 2.94 (L) 4.00 - 5.21 x10(6)/mcL Hemoglobin 8.0 (L) 11.7 - 15.5 g/dL Hematocrit 25.3 (L) 35.7 - 45.8 % MCV 86.1 82.6 - 94.4 fL MCH 27.2 27.1 - 32.0 pg MCHC 31.6 (L) 31.7 - 35.0 g/dL Platelets 132 (L) 145 - 357 x10(3)/mcL RDWSD 53.4 (H) 37.0 - 46.0 fL RDWCV 17.1 (H) 11.5 - 14.1 % MPV 12.2 7.6 - 12.9 fL nRBC % Auto 0.0 % nRBC Abs Auto 0.000 0.000 - 0.000 x10(3)/mcL Differential, Automated Result Value Ref Range Neutrophils % 87.9 % Neutr Abs (ANC) 18.75 (H) 1.70 - 6.10 x10(3)/mcL Lymphocytes % 5.4 % Lymphocytes Abs 1.2 0.9 - 3.2 x10(3)/mcL Monocytes % 5.0 % Monocyte Abs 1.1 (H) 0.3 - 0.9 x10(3)/mcL Eosinophils % 0.4 % Eosinophils Abs 0.1 0.0 - 0.4 x10(3)/mcL Basophils % 0.2 % Basophils Abs 0.0 0.0 - 0.1 x10(3)/mcL Immature Gran % 1.10 % Jena Gran Abs 0.24 (H) 0.00 - 0.04 x10(3)/mcL Scan, Peripheral Blood Result Value Ref Range Plat Estimate Decreased RBC Morphology Abnormal Hypochromia Slight Ovalocytes 1-5 /HPF Stippled RBCs Present >1/HPF Giant Platelets Less than 1 /HPF BLOOD GAS 2 ARTERIAL Result Value Ref Range pH Art 7.25 (CRIT) 7.35 - 7.45 pCO2 Art 40 35 - 45 mmHg pO2 Art 117 (H) 85 - 104 mmHg HCO3 Art 17.0 (L) 20.0 - 26.0 mmol/L BE Art -10.3 (L) -3.0 - 3.0 mmol/L Hgb Blood Gas 8.6 (L) 11.7 - 15.5 g/dL O2HB Art 96.3 94.0 - 97.0 % COHB Art 0.3 % METHB Art 0.9 <=1.5 % Na Whole Blood 132 (L) 135 - 145 mmol/L K Whole Blood 4.6 3.5 - 5.0 mmol/L ICa Whole Blood 1.12 (L) 1.15 - 1.33 mmol/L CL Whole Blood 109 (H) 98 - 107 mmol/L Gluc Whole Bld 105 65 - 199 mg/dL Lactate WB 0.5 0.5 - 2.2 mmol/L FIO2 Art 70 % PF Ratio Art 167 Diagnostic Tests and Imaging: [facility] 11/04/2021 Diffuse cerebral edema consistent with the history. Assessment: Aniya Lundy is a 36 y.o. female with PMHx of depression and anxiety who presented with cardiacarrest. Neurology is being consulted for concern of seizure. Mental status reassuring, arousable despite being on propofol and fentanyl gtt, overall on track tomake good cognitive recovery. 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 Regardless, recommend obtaining MRI brain and MRA head to look for evidence of vasospasm and evidence of infarct that might suggest prior vasospasm. Will otherwise continue cvEEG monitoring through sedation weans. Recommendations: - F/U TCD - Obtain MRI brain wo + MRA head wo - Continue cvEEG monitoring through sedation wean Jhony Regan DO Consult Neurology Pager [phone] 11/07/2021 Associated attestation - Tiffany Unger DO - 11/07/2021 1:28 PM EST Neurology Staff Note I have reviewed the resident's history during the visit and I agree with the details as written. Myphysical examination confirms the resident's findings. The assessment and plan were formulated in discussion with me at the time of the visit and I agree with them as documented. Tiffany Unger D.O. Neurology Department [email or web address] Initial Assessments - Sherry Arriola, SYBIL - 11/06/2021 3:52 PM EST Office of Care Management Initial Assessment Sherry Arriola RN reviewed record and discussed patient with Care Team. Source of Information: Team, bedside nurse, medical record, and Parent (LUIS F willis/ Shannon Zamora (mother) [phone]) Introduced self/reviewed role; services accepted. Reason for Hospitalization: Cardiac arrest Covid Vaccination Status: Unvaccinated (11/04.) Last COVID test: Lab Results Component Value Date COVID19 Not Detected 11/03/2020 [id number] Not Detected 11/04/2021 Past medical History: Past Medical History: Diagnosis Date ??? *History of COVID-19 11/05/2021 ??? Anorexia ??? Anxiety 08/03/2014 ??? Asthma 08/03/2014 ??? Flaherty's palsy ??? Chest pain 01/17/2016 ETT 2013- negative ST III Echo 2013 ??Normal LV size and function, trivial TR, mild PI ??? 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 Depression ??? Headache ??? Hypertension 08/03/2014 Hospitalizations Within the Past 30 Days: current reason for admission unrelated to previous admission,other (see comments) (10/10 - ED at [facility] for chest pain (see note)) Current Decision-Making Capacity: Surrogate Advance Care Planning: Attempt Cardiopulmonary Resuscitation - Inpatient <no information> -Advanced Directive: (TBD - none on file) If AD's have not been completed Shannon Zamora (mother) would be surrogate decision maker per [place] surrogate decision making law. (Only good for 180 days) Any patient receiving care at [facility] must abide by [place] law. The hierarchy for surrogate decision making is: (a) Patient???s spouse, or civil union partner or common law spouse unless there is a divorce proceeding, separation agreement, or restraining order limiting that person???s relationship with the patient. (b) Any adult son or daughter of the patient. (c) Either parent of the patient. (d) Any adult brother or sister of the patient. (e) Any adult grandchild of the patient. (f) Any grandparent of the patient. (g) Any adult aunt, uncle, niece, or nephew of the patient. (h) A close friend of the patient. (i) The agent with financial power of digital media analyst or a conservator appointed in accordance with RSA 464-A. (j) The guardian of the patient???s estate. Current Coping/Education/Information Needs: Pending hospital course. Current Functional Ability: Completely Dependent Functional Status Prior to Admission: Independent Home Environment: Others in the home: friend(s) (Dk Mos, boyfriend, intermittently stays at AniyaTapprs apartment.). Current Living Arrangements: home/apartment/condo. Accessibility Concerns:No steps to enter a first floor apartment, with the bathroom and bedroom on second floor.. Current DME: none Home Address confirmed as: [address] [facility] [address] (This is Shannon's mailing address that Aniya uses to get her mail). Physical address is: [address] [place] [address] Social & Family Supports: All names listed below confirmed with patient as current and correct Extended Emergency Contact Information Primary Emergency Contact: Shannon Zamora [facility] Mobile Relation: Mother Secondary Emergency Contact: Ehsan Stapleton Relation: Sibling Current Care Provided by: self Provides Primary Care For: child(rosas) (Patient has 3 children: 18 yr old son has always lived w/Shannon (patient's mother), 11 yr old daughter lives w/Glenys (patient's sister), and 5 yr old daughter lives intermittently w/patient and Pat (Aniya's aunt whom she is curently with).) Caregiver if needed: unable to assess Quality of Family relationships: helpful,involved,supportive Community Resources being provided currently: support group(s) ([facility] Behavioral Health History: Anxiety, borderline personality disorder, and PTSD in chart review. Substance Use/Abuse listed: Social History Tobacco Use Smoking Status Current Every Day Smoker ??? Packs/day: 1.00 ??? Years: 15.00 ??? Pack years: 15.00 ??? Types: Cigarettes Smokeless Tobacco Never Used Tobacco Comment Smokess 0.5 - 1 packs of cigarettes daily x 13 - 14 years. 0 No problems reported 1-2 Low level 3-5 Moderate level 6-8 Substantial level 9- 10 Severe level 0 to 7 points: Low risk 8 to 15 points: Medium risk 16 to 19 points: High risk 20 to 40 points: Addiction likely Other Pertinent/Service Specific Information: Pending hospital course. Health/Prescription Coverage: Primary Insurance: [place] Payor[place] / Plan: [place] PRIMARY CARE [place] / Product Type: *No Product type* / Secondary Insurance: N/A Prescription Coverage: Yes Preferred Pharmacy: [facility] [address] [place] [address] [address] [facility] [address] [facility] [id number] [address] [facility] [place] [address] [address] [facility] [address] [facility] [phone] [employer] [id number] - [place], [place] - [address] [place] [address] Status: Patient is a : unable to assess Mother reports patient is not a . Primary Care Provider: Kenia Lawrence APRN [phone] Patient/Caregiver Goals of Treatment: Pending hospital course and/or when medically stable discharge to home. Potential Needs for Transition of Care: other (see comments) (TBD - pending hospital course.) Agency Referrals: The patient/caregivers were provided with a list of [facility] agenies discussed with Shannon (patient's mother) which serve their preferred geographic location and they were educated about their right to choose where referrals are placed. Patient/Caregiver requests referral to (if needed,choice is). [facility] PHONE: [phone] FAX: [phone] Transportation: no concerns Transportation Anticipated: family or friend will provide (Shannon (mother)) Concerns to be Addressed: other (see comments) (Pending hospital course.) Assessment: Patient is admitted to cardiology service for cardiac arrest, OOH VF arrest. Plan: IA completed w/mother.Patient is intubated/sedated with target temperature management, EEG, vasodilator therapy, intra-aortic balloon pump, amio/lido rhythm control. Monitor patient progress. Assess care needs and make referrals as needed. Monitor O2 and DME needs. ?? A member of the Care Management team will continue to monitor progress, follow for continuity of care and assist with transition of care planning. * Initial Assessments - Sherry Arriola, SYBIL - 11/06/2021 2:37 PM EST Office of Care Management Initial Assessment Sherry Arriola RN reviewed record and discussed patient with Care Team. Source of Information: Team, bedside nurse, medical record, and Other (Chart review. Left message on mother's listed cell # to perform/complete IA.) In voice message Introduced self/reviewed role. Reason for Hospitalization: Cardiac arrest. Covid Vaccination Status: (TBD) Last COVID test: Lab Results Component Value Date COVID19 Not Detected 11/03/2020 [id number] Not Detected 11/04/2021 Past medical History: Past Medical History: Diagnosis Date ??? *History of COVID-19 11/05/2021 ??? Anorexia ??? Anxiety 08/03/2014 ??? Asthma 08/03/2014 ??? Flaherty's palsy ??? Chest pain 01/17/2016 ETT 2013- negative ST III Echo 2013 ??Normal LV size and function, trivial TR, mild PI ??? 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 Depression ??? Headache ??? Hypertension 08/03/2014 Hospitalizations Within the Past 30 Days: current reason for admission unrelated to previous admission,other (see comments) (10/10 - ED at [facility] for chest pain (see note)) Current Decision-Making Capacity: Surrogate (Shannon Zamora (mother) [phone]) Advance Care Planning: Attempt Cardiopulmonary Resuscitation - Inpatient <no information> -Advanced Directive: (TBD - none on file) If AD's have not been completed Shannon Zamora (mother) would be surrogate decision maker per [place] surrogate decision making law. (Only good for 180 days) Any patient receiving care at [facility] must abide by [place] law. The hierarchy for surrogate decision making is: (a) Patient???s spouse, or civil union partner or common law spouse unless there is a divorce proceeding, separation agreement, or restraining order limiting that person???s relationship with the patient. (b) Any adult son or daughter of the patient. (c) Either parent of the patient. (d) Any adult brother or sister of the patient. (e) Any adult grandchild of the patient. (f) Any grandparent of the patient. (g) Any adult aunt, uncle, niece, or nephew of the patient. (h) A close friend of the patient. (i) The agent with financial power of digital media analyst or a conservator appointed in accordance with RSA 464-A. (j) The guardian of the patient???s estate. Current Coping/Education/Information Needs: Pending hospital course. Current Functional Ability: Completely Dependent (Patient intubated/sedated.) Functional Status Prior to Admission: unable to assess Home Environment: Others in the home: unable to assess (Dk, boyfriend, noted in chart.). Current Living Arrangements: unable to assess. Accessibility Concerns: . Current DME: unable to assess Home Address listed as: [facility] [address] [facility] [address] Social & Family Supports: All names listed below confirmed with patient as current and correct Extended Emergency Contact Information Primary Emergency Contact: Shannon Zamora [facility] Mobile Relation: Mother Secondary Emergency Contact: Ehsan Stapleton Relation: Sibling Current Care Provided by: unable to assess Provides Primary Care For: Caregiver if needed: unable to assess Quality of Family relationships: unable to assess Community Resources being provided currently: unable to assess Behavioral Health History: Anxiety, borderline personality disorder, and PTSD in chart review. Substance Use/Abuse listed: Social History Tobacco Use Smoking Status Current Every Day Smoker ??? Packs/day: 1.00 ??? Years: 15.00 ??? Pack years: 15.00 ??? Types: Cigarettes Smokeless Tobacco Never Used Tobacco Comment Smokess 0.5 - 1 packs of cigarettes daily x 13 - 14 years. 0 No problems reported 1-2 Low level 3-5 Moderate level 6-8 Substantial level 9- 10 Severe level 0 to 7 points: Low risk 8 to 15 points: Medium risk 16 to 19 points: High risk 20 to 40 points: Addiction likely Other Pertinent/Service Specific Information: Pending hospital course. Health/Prescription Coverage: Primary Insurance: [place] Pay[place] / Plan[place] PRIMARY CARE [place] / Product Type: *No Product type* / Secondary Insurance: N/A Prescription Coverage: Yes Preferred Pharmacy: [place] [id number] [facility] [address] [facility] [address] [address] [facility] [place], [place] - [address] [facility] [address] [facility] [phone] [facility] [id number] - [place], [place] - [address] [place] [address] Status: Patient is a : unable to assess Primary Care Provider: Kenia Lawrence APRN [phone] Patient/Caregiver Goals of Treatment: Pending hospital course and/or when medically stable discharge to home. Potential Needs for Transition of Care: unable to assess Agency Referrals: Not Applicable Transportation: unable to assess Transportation Anticipated: Concerns to be Addressed: unable to assess Assessment: Patient is admitted to cardiology service for cardiac arrest, OOH VF arrest. Plan: to complete IA w/mother if possible, left voice message for her to call back. Patient is intubated/sedated with target temperature management, EEG, vasodilator therapy, intra-aortic balloon pump, amio/lido rhythm control. Monitor patient progress. Assess care needs and make referrals as needed. Monitor O2 and DME needs. A member of the Care Management team will continue to monitor progress, follow for continuity of care and assist with transition of care planning. * Consult Note - Yolanda Simon MD - 11/06/2021 11:18 AM EST Neurology Inpatient Consult Note Patient name:Aniya Lundy Date of :1985 Admit date: 11/04/2021 Attending: Valorie Obrien MD ID: Aniya Lundy is a 36 y.o. female with PMHx of depression and anxiety who presented with cardiac arrest. Neurology is being consulted for concern of seizure. ?? Interval Hx: - Rewarming in process - No seizures on EEG - US carotid without vasospasm - TCD ordered - Moving extremities spontaneously with weaned sedation Past Medical History: Past Medical History: Diagnosis [...] ENDOSCOPY performed by Dudley Alva MD at [facility] ENDOSCOPY Medications: Scheduled Meds: ??? dexmedetomidine ??? ceFEPime 1 g Intravenous Q8H ??? [START ON 11/07/2021] Vancomycin Level - MAR Order Reminder NOT APPLICABLE Once ??? acetaminophen 1,000 mg Oral Q8H SONALI Or ??? acetaminophen 1,000 mg Oral Q8H SONALI Or ??? acetaminophen 975 mg Rectal Q8H SONALI ??? shift total and Settings verification 1 each Intravenous 2 Times Daily - Shift Total ??? atorvastatin 40 mg Oral QPM ??? famotidine 20 mg Oral BID ??? chlorhexidine 15 mL Oral BID ??? white petrolatum-mineral oiL 1 each Both Eyes BID ??? sodium chloride 0.9 % (flush) 5 mL Intravenous BID ??? white petrolatum-mineral oiL Topical (Top) Q8H SONALI Continuous Infusions: ??? dexmedetomidine ??? fentaNYL 200 mcg/hr (11/06/21 1000) ??? vasopressin Stopped (11/05/21 1814) ??? NORepinephrine 2 mcg/min (11/06/21 1000) ??? propofoL 50 mcg/kg/min (11/06/21 1001) ??? heparin (porcine) infusion Stopped (11/06/21 0759) ??? lidocaine (pf) 15 mL/hr at 11/05/21 0500 ??? nitroGLYcerin Stopped (11/04/21 2116) ??? sodium chloride 0.9% Stopped (11/04/21 2200) ??? niCARdipine 5 mg/hr (11/06/21 1112) ??? AMIOdarone 0.501 mg/min (11/06/21 1000) PRN Meds:.vancomycin- intermittent dosing per levels, Vancomycin Level - MAR Order Reminder, midazolam (PF), fentaNYL AND [] fentaNYL AND fentaNYL AND shift total and Settings verification AND Assess, senna, polyethylene glycoL (MIRALAX) oral powder, propofoL AND propofoL, sodium chloride 0.9 % (flush), nitroGLYcerin, busPIRone, heparin (porcine) AND heparin (porcine) infusion, AMIOdarone, lidocaine (pf), nitroGLYcerin, sodium chloride 0.9%, iohexoL Allergies: Allergies Allergen Reactions ??? Augmentin [Amoxicillin-Pot Clavulanate] Rash Unsure if allergic ??? Ipratropium Other (See Comments) ??? Morphine Other (See Comments) Cannot recall ??? Penicillins Rash ??? Seroquel [Quetiapine] Other (See Comments) Made head feel loopy. Family history: Family History Problem Relation Age of Onset ??? Migraines Mother ??? Cancer Mother Social history: Social History Socioeconomic History ??? Marital status: [...] Housing Stability: Not on file Review of systems: Deferred, intubated. Physical Exam: Patient Vitals for the past 24 hrs: Temp Heart Rate From SP02 Pulse Resp SpO2 FiO2 (%) O2 Device 11/05/21 1200 35.8 ??C (96.4 ??F) (!) 47 bpm (!) 47 12 94 % 40 % Ventilator 11/05/21 1300 35.8 ??C (96.4 ??F) (!) 47 bpm (!) 47 12 95 % 40 % Ventilator 11/05/21 1400 35.8 ??C (96.4 ??F) 50 bpm 50 17 93 % 40 % Ventilator 11/05/21 1500 35.8 ??C (96.4 ??F) 52 bpm (!) 47 12 96 % 40 % Ventilator 11/05/21 1600 35.8 ??C (96.4 ??F) (!) 44 bpm (!) 44 11 96 % 40 % Ventilator 11/05/21 1610 -- (!) 43 bpm (!) 42 11 95 % -- -- 11/05/21 1700 36.3 ??C (97.3 ??F) (!) 45 bpm (!) 44 9 93 % 40 % Ventilator 11/05/21 1720 -- -- -- 15 94 % -- -- 11/05/21 1755 -- (!) 46 bpm (!) 46 20 95 % -- -- 11/05/21 1800 36.4 ??C (97.5 ??F) (!) 45 bpm (!) 45 15 94 % 40 % Ventilator 11/05/21 1900 36.8 ??C (98.2 ??F) 51 bpm 51 19 95 % 40 % Ventilator 11/05/21 1946 -- -- -- 24 96 % -- -- 11/05/21 2000 37.1 ??C (98.8 ??F) 78 bpm 75 20 97 % 40 % Ventilator 11/05/21 2100 37 ??C (98.6 ??F) 77 bpm 98 17 95 % -- -- 11/05/21 2200 37 ??C (98.6 ??F) 71 bpm 72 17 95 % -- -- 11/05/21 2300 -- 68 bpm 68 14 93 % -- -- 11/05/21 2342 -- 77 bpm 74 16 97 % -- -- 11/06/21 0000 36.9 ??C (98.4 ??F) 68 bpm 68 17 95 % 40 % Ventilator 11/06/21 0100 -- 65 bpm 65 16 98 % -- -- 11/06/21 0200 36.9 ??C (98.4 ??F) 63 bpm 63 16 99 % 40 % Ventilator 11/06/21 0300 -- 74 bpm 79 21 98 % -- -- 11/06/21 0400 36.9 ??C (98.4 ??F) 70 bpm 71 14 97 % 50 % Ventilator 11/06/21 0447 -- -- -- 19 98 % -- -- 11/06/21 0500 37 ??C (98.6 ??F) 69 bpm 69 18 97 % -- -- 11/06/21 0600 37 ??C (98.6 ??F) 61 bpm 61 18 100 % 50 % Ventilator 11/06/21 0700 -- 65 bpm 66 18 95 % -- -- 11/06/21 0725 -- 59 bpm 71 18 95 % -- -- 11/06/21 0755 -- 61 bpm 59 18 91 % -- -- 11/06/21 0756 -- -- -- 18 91 % -- -- 11/06/21 0800 36.8 ??C (98.2 ??F) 65 bpm 65 18 92 % 50 % Ventilator 11/06/21 0900 -- 63 bpm 62 19 97 % -- -- 11/06/21 1000 36.9 ??C (98.4 ??F) 54 bpm 54 18 99 % 50 % Ventilator 11/06/21 1100 -- -- 55 18 -- -- -- Neuro exam: MS: Intubated and sedated Able to open eyes to name Followed simple commands, grasped bilateral hands, wiggled bilateral toes, closed eyes CN: Pupils 2mm ERRL No facial asymmetry Hearing intact to voice Gag reflex present VOR reflex and corneal reflex present Motor: Normal bulk. Moved all extremities spontaneously. Sensation: Withdrew to noxious stimuli in upper and lower extremities. Reflexes: Diffusely brisk 2+ R, 2+ L Biceps 2+ R, 2+ L Brachioradialis 2+ R, 2+ L Triceps 2+ R, 2+ L Patellar 2+ R, 2+ L Achilles tendon Babinski - not present Coordination: No tremor Labs: Recent Results (from the past 24 hour(s)) Basic Metabolic Panel (non-fasting) Result Value Ref Range Glucose Lvl 98 65 - 199 mg/dL BUN 15 8 - 18 mg/dL Creatinine 1.17 0.70 - 1.20 mg/dL Sodium 137 135 - 145 mmol/L Potassium 4.3 3.5 - 5.0 mmol/L Chloride 108 (H) 98 - 107 mmol/L CO2 19 (L) 22 - 31 mmol/L Anion Gap 10 5 - 15 mmol/L Calcium 7.7 (L) 8.5 - 10.5 mg/dL Estimated GFR 59 (L) >=60 mL/min/1.73 m?? Magnesium Result Value Ref Range Magnesium 0.99 0.69 - 1.07 mmol/L BLOOD GAS 2 ARTERIAL Result Value Ref Range pH Art 7.26 (CRIT) 7.35 - 7.45 pCO2 Art 46 (H) 35 - 45 mmHg pO2 Art 85 85 - 104 mmHg HCO3 Art 20.1 20.0 - 26.0 mmol/L BE Art -6.9 (L) -3.0 - 3.0 mmol/L Hgb Blood Gas 10.2 (L) 11.7 - 15.5 g/dL O2HB Art 93.6 (L) 94.0 - 97.0 % COHB Art 0.3 % METHB Art 0.6 <=1.5 % Na Whole Blood 130 (L) 135 - 145 mmol/L K Whole Blood 4.1 3.5 - 5.0 mmol/L ICa Whole Blood 1.15 1.15 - 1.33 mmol/L CL Whole Blood 109 (H) 98 - 107 mmol/L Gluc Whole Bld 100 65 - 199 mg/dL Lactate WB 0.7 0.5 - 2.2 mmol/L FIO2 Art 40 % PF Ratio Art 212 BLOOD GAS 2 ARTERIAL Result Value Ref Range pH Art 7.36 7.35 - 7.45 pCO2 Art 34 (L) 35 - 45 mmHg pO2 Art 71 (L) 85 - 104 mmHg HCO3 Art 18.6 (L) 20.0 - 26.0 mmol/L BE Art -6.8 (L) -3.0 - 3.0 mmol/L Hgb Blood Gas 8.9 (L) 11.7 - 15.5 g/dL O2HB Art 92.5 (L) 94.0 - 97.0 % COHB Art 0.3 % METHB Art 0.7 <=1.5 % Na Whole Blood 130 (L) 135 - 145 mmol/L K Whole Blood 4.0 3.5 - 5.0 mmol/L ICa Whole Blood 1.09 (L) 1.15 - 1.33 mmol/L CL Whole Blood 110 (H) 98 - 107 mmol/L Gluc Whole Bld 98 65 - 199 mg/dL Lactate WB 1.0 0.5 - 2.2 mmol/L FIO2 Art 40 % PF Ratio Art 178 Basic Metabolic Panel (non-fasting) Result Value Ref Range Glucose Lvl 109 65 - 199 mg/dL BUN 14 8 - 18 mg/dL Creatinine 1.34 (H) 0.70 - 1.20 mg/dL Sodium 138 135 - 145 mmol/L Potassium 4.5 3.5 - 5.0 mmol/L Chloride 108 (H) 98 - 107 mmol/L CO2 19 (L) 22 - 31 mmol/L Anion Gap 11 5 - 15 mmol/L Calcium 7.8 (L) 8.5 - 10.5 mg/dL Estimated GFR 50 (L) >=60 mL/min/1.73 m?? Hepatic Function Panel Result Value Ref Range Total Protein 5.3 (L) 6.1 - 8.0 g/dL Albumin 3.3 3.2 - 5.2 g/dL AST 107 (H) 0 - 30 unit/L ALT 64 (H) 0 - 30 unit/L Alk Phos 61 35 - 105 unit/L Total Bilirubin 0.2 0.2 - 1.3 mg/dL Bili, Direct 0.2 0.0 - 0.3 mg/dL Prothrombin Time Result Value Ref Range PT 12.4 9.4 - 12.5 sec INR 1.1 Heparin (unfractionated) Level Result Value Ref Range Heparin UFH Level 0.73 IU/mL Hemogram Result Value Ref Range WBC 17.0 (H) 4.0 - 9.5 x10(3)/mcL RBC 3.38 (L) 4.00 - 5.21 x10(6)/mcL Hemoglobin 9.2 (L) 11.7 - 15.5 g/dL Hematocrit 28.5 (L) 35.7 - 45.8 % MCV 84.3 82.6 - 94.4 fL MCH 27.2 27.1 - 32.0 pg MCHC 32.3 31.7 - 35.0 g/dL Platelets 156 145 - 357 x10(3)/mcL RDWSD 51.4 (H) 37.0 - 46.0 fL RDWCV 16.7 (H) 11.5 - 14.1 % MPV 11.4 7.6 - 12.9 fL nRBC % Auto 0.0 % nRBC Abs Auto 0.000 0.000 - 0.000 x10(3)/mcL Differential, Automated Result Value Ref Range Neutrophils % 75.1 % Neutr Abs (ANC) 12.72 (H) 1.70 - 6.10 x10(3)/mcL Lymphocytes % 13.5 % Lymphocytes Abs 2.3 0.9 - 3.2 x10(3)/mcL Monocytes % 8.7 % Monocyte Abs 1.5 (H) 0.3 - 0.9 x10(3)/mcL Eosinophils % 1.8 % Eosinophils Abs 0.3 0.0 - 0.4 x10(3)/mcL Basophils % 0.4 % Basophils Abs 0.1 0.0 - 0.1 x10(3)/mcL Immature Gran % 0.50 % [place] Gran Abs 0.09 (H) 0.00 - 0.04 x10(3)/mcL Scan, Peripheral Blood Result Value Ref Range Plat Estimate Normal RBC Morphology Abnormal Macrocytes 1-5 /HPF Hypochromia Slight Tear Drop Cells 1-5 /HPF [place] Cells 1-5 /HPF Stippled RBCs Present >1/HPF BLOOD GAS 2 ARTERIAL Result Value Ref Range pH Art 7.21 (CRIT) 7.35 - 7.45 pCO2 Art 46 (H) 35 - 45 mmHg pO2 Art 66 (L) 85 - 104 mmHg HCO3 Art 18.1 (L) 20.0 - 26.0 mmol/L BE Art -9.9 (L) -3.0 - 3.0 mmol/L Hgb Blood Gas 9.9 (L) 11.7 - 15.5 g/dL O2HB Art 88.6 (L) 94.0 - 97.0 % COHB Art 0.3 % METHB Art 0.9 <=1.5 % Na Whole Blood 130 (L) 135 - 145 mmol/L K Whole Blood 4.2 3.5 - 5.0 mmol/L ICa Whole Blood 1.14 (L) 1.15 - 1.33 mmol/L CL Whole Blood 107 98 - 107 mmol/L Gluc Whole Bld 107 65 - 199 mg/dL Lactate WB 0.8 0.5 - 2.2 mmol/L FIO2 Art 40 % PF Ratio Art 165 BLOOD GAS 2 ARTERIAL Result Value Ref Range pH Art 7.29 (CRIT) 7.35 - 7.45 pCO2 Art 40 35 - 45 mmHg pO2 Art 62 (L) 85 - 104 mmHg HCO3 Art 18.9 (L) 20.0 - 26.0 mmol/L BE Art -7.6 (L) -3.0 - 3.0 mmol/L Hgb Blood Gas 9.1 (L) 11.7 - 15.5 g/dL O2HB Art 89.0 (L) 94.0 - 97.0 % COHB Art 0.3 % METHB Art 0.9 <=1.5 % Na Whole Blood 128 (L) 135 - 145 mmol/L K Whole Blood 4.0 3.5 - 5.0 mmol/L ICa Whole Blood 1.06 (L) 1.15 - 1.33 mmol/L CL Whole Blood 110 (H) 98 - 107 mmol/L Gluc Whole Bld 94 65 - 199 mg/dL Lactate WB 0.9 0.5 - 2.2 mmol/L FIO2 Art 40 % PF Ratio Art 155 Diagnostic Tests and Imaging: Assessment: Aniya Lundy is a 36 y.o. female with PMHx of depression and anxiety who presented with cardiacarrest. Neurology is being consulted for concern of seizure. Mental status improving with weaned sedation and rewarming. No evidence of seizures on EEG, and carotid US noncontributory. She is able to follow simple commands this morning and moved all extremities. Diffuse vasospasm appears well controlled on current therapy. No findings on examination concerning for intracerebral vasospasm, but exam limited by sedation. MRI and MRA brain would be best to visualize ischemic brain injury. Ischemic findings on MRI would be best visualized atleast 72 hours after initial cardiac arrest. Transcranial doppler ordered and awaiting on results. Recommendations: - MRI and MRA brain - Obtain MRI/MRA brain atleast 72 hours after initial cardiac arrest X Consult service will continue to follow patient. Recommendations are above, please page if further consultation required. Morgan Malin MD 11/06/2021 Consult Neurology Pager [phone] ATTENDING NOTE: I reviewed the pertinent aspects of the overnight events and agree with it as outlined in the resident's note. Now off balloon pump. Rewarming in progress. She remains sedated. I repeated the pertinent aspects of the physical examination and agree with it as documented in the resident's note. Brainstem reflexes are preserved and she briefly opens eyes to voice. Moves all extremities to noxious stimuli. DTRs brisk without Babinski responses. I reviewed the impression and plan with the resident and agree with it as documented. TCD re-assuring for cerebral vessel spasm. Exam nonfocal but also limited. MRI brain with MRA when stable. EEG without focal epileptiform discharges. Yolanda Simon MD Associate Prof Neurol Neuromuscular Medicine & Clinical Neurophysiology * Consult Note - Jemal Quezada MD - 11/05/2021 9:19 AM EST [facility] Department of Surgery Inpatient Consult Note Consultation Requested by: Valorie Obrien MD HPI: We are seeing Aniya Lundy today at the request of Dr. Valorie Obrien MD for evaluation and advice about loss of distal pulses s/p IABP. Aniya Lundy is a 36 y.o. female with a history of tobacco use, hypertension on ZANE-I at home, anxiety, depression and recent COVID-19 infection (diagnosed 09/27/2021) who suffered an out of hospital VF arrest at home today witnessed by her boyfriend. As per chart review: she awoke from sleep this morning with severe heartburn and palpitations and asked for a wet washcloth. She was found down,unresponsive, boyfriend started CPR. EMS found her in ventricular fibrillation and pulseless. They performed 2 minutes of CPR, gave 1 shock and 2 rounds of epinephrine. On arrival to the emergency department, her VBG was found to be 7.09/66 with a lactate of 6.5. She was taken to the label remover with the following findings: - Severe spasm of RFA & Near complete occlusion from apparent spasm around 6 Fr sheath. - Patient cardiac arrested x8 in the label remover. 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 ECHO (11/04/2021) - EF: 65% An IABP was placed through her right femoral artery and patient was transferred to CVICU. Upon arrival she was found to have no DP or PT signals for which vascular surgery were consulted. She is sedated and intubated and thus an accurate history and physical was obtained via chart review. She was on propofol, fentanyl, amiodarone and a heparin gtt. She was on VC PEEP 5, RR 18, VT 460 @ 60% FiO2. Int Hx/Subjective -remains on amiodarone, lidocaine gtt, and heparin gtt; nicardipine gtt initiated -RLE with doppler signals present this AM PHYSICAL EXAM Temp: [35.5 ??C (95.9 ??F)-37.2 ??C (99 ??F)] Heart Rate: [46-128] Resp: [11-74] BP: (93-111)/(42-56) SpO2: [96 %-100 %] Heart Rate from SpO2: [47 bpm-94 bpm] General: Sedated and intubated. Pulmonary: mechanical breath sounds Abdominal: Soft Extremities: Right: IABP in femoral artery. +DP/PT signals present Unable to assess motor/sensory function Left: Femoral palpable. Signals in popliteal, DP and PT. Unable to assess motor and sensory. Neurological: Sedated and intubated. LABORATORY DATA Recent Labs 11/05/21 0108 11/04/21 1530 11/04/21 0735 WBC 11.8* 16.8* 25.6* HGB 9.7* 11.0* 12.9 PLATELET 185 230 298 NA 137 -- 140 K 4.0 -- 5.1* CL 110* -- 104 CO2 19* -- 19* BUN 17 -- 20* CREATININE 0.78 -- 1.55* MAGNESIUM 0.80 -- 1.04 PHOS 2.9 -- 6.2* GLUCOSE 104 -- 196 LFT's No results found for: ALKPHOS, AST, ALBUMIN, BILIDIR, BILITOT, ALT, PROT Coags No results found for: INR, PT, PTT MICRO: None pending IMAGING: None pending IMPRESSION & RECOMMENDATION Aniya Lundy is a 36 y.o. female with findings of diffuse coronary vasospasm and multiple episodes of VT/VF s/p L coronary angiography and IABP placement. At that time was also noted to have vasospasm of iliacs and femoral arteries. Postprocedurally, unable to obtain right leg DP/PT signals. Onclinical exam last night she had faint L popliteal and DP/PT signals and no signals on the right. However, both legs appear symmetric in color, temperature and appearance. This morning her legs appears similar in temperature and color. She now has DP and PT doppler signals present in her bilateral lower extremities. No need for vascular surgical intervention. Would continue to recommend q1h neurovascular checks and heparin infusion, with removal of IABP when clinically able. Please page with additional questions / concerns. [] Consult service to continue to follow [X] Consult service to sign off [facility] Vascular Surgery Resident pager [phone] 11/05/2021 Associated attestation - Joseph Baez MD - 11/06/2021 9:58 AM EST I saw and evaluated Aniya Lundy and agree with this note and plan. Joseph Baez MD, MS Section of Vascular Surgery * Consult Note - Yolanda Simon MD - 11/05/2021 7:21 AM EST Neurology Inpatient Consult Note - 11/05/2021 Admit date: 11/04/2021 Attending: Valorie Obrien MD ID: Aniya Lundy is a 36 y.o. female with PMHx of depression and anxiety who presented with cardiac arrest. Neurology is being consulted for concern of seizure. Interval Hx: - S/P cardiac cath w/ left coronary angiography, IABP placement, [place] jazmin catheter insertion, cooling catheter placement in IVC complicated by VT->VF requiring 8 shocks, secondary to vasospasm - bilateral arm flexing overnight, EEG without evidence of seizure - Diffuse vasospasm controlled on nicardipine drip - Remains on TTM - Sedation increased overnight Hospital Medications: Current Facility-Administered Medications Medication Dose Route Frequency Provider Last Rate Last Admin ??? midazolam (pf) (Versed) (1 mg/mL) injection 1 mg 1 mg Intravenous Q4H PRN Richard Asher MD 1mg at 11/05/21 0241 ??? acetaminophen (Tylenol) tablet 1,000 mg 1,000 mg Oral Q8H Richard Staples MD Or ??? acetaminophen (Tylenol) (32.02 mg/mL) oral liquid 1,000 mg 1,000 mg Oral Q8H Richard Staples MD Or ??? acetaminophen (Tylenol) suppository 975 mg 975 mg Rectal Q8H Richard Staples MD ??? fentaNYL (PF) (50 mcg/mL) infusion syringe 50 mL 0-400 mcg/hr Intravenous Continuous Richard Asher MD 4 mL/hr at 11/05/21 0620 200 mcg/hr at 11/05/21 0620 And ??? fentaNYL (50 mcg/mL) bolus from infusion 50 mcg 50 mcg Intravenous Once Richard Asher MD And ??? fentaNYL (50 mcg/mL) bolus from infusion 50-200 mcg 50-200 mcg Intravenous Q15 Min PRN Richard Asher MD 50 mcg at 11/05/21 0455 And ??? fentaNYL shift total and Settings verification 1 each Intravenous 2 Times Daily - Shift Total Richard Asher MD ??? atorvastatin (Lipitor) tablet 40 mg 40 mg Oral QPM Jerrod Muse MD ??? NORepinephrine (Levophed) (16 mcg/mL) in dextrose 5% 250 mL infusion 0-100 mcg/min Intravenous Continuous Uday Alves MD Paused at 11/04/21 0828 ??? famotidine (Pepcid) tablet 20 mg 20 mg Oral BID Uday Alves MD 20 mg at 11/05/21 0816 ??? chlorhexidine (Peridex) 0.12 % oral solution 15 mL 15 mL Oral BID Uday Alves MD 15 mL at 11/05/21 0816 ??? propofoL (Diprivan) (10 mg/mL) infusion 0-50 mcg/kg/min Intravenous Continuous Uday Alves MD 21 mL/hr at 11/05/21 0816 50 mcg/kg/min at 11/05/21 0816 And ??? propofoL (Diprivan) (10 mg/mL) bolus from infusion 10 mg 10 mg Intravenous Q10 Min PRN Uday Alves MD ??? white petrolatum-mineral oiL ophthalmic ointment 1 each Both Eyes BID Uday Alves MD 1 each at 11/05/21 0816 ??? sodium chloride 0.9 % (flush) (BD PosiFlush Normal Saline 0.9) flush 5 mL 5 mL Intravenous BID Uday Alves MD 5 mL at 11/05/21 0816 ??? sodium chloride 0.9 % (flush) (BD PosiFlush Normal Saline 0.9) flush 5-20 mL 5-20 mL Intravenous Q1 Min PRN Uday Alves MD ??? lidocaine (Xylocaine) 1% (10 mg/mL) injection 3 mg 0.3 mL Subcutaneous Once PRN Uday Alves MD ??? nitroGLYcerin (Nitrostat) disintegrating tablet 0.4 mg 0.4 mg Sublingual Q5 Min PRN Uday Alves MD ??? busPIRone (Buspar) tablet 30 mg 30 mg Oral Q8H PRN Uday Alves MD ??? white petrolatum-mineral oiL (Eucerin) cream Topical (Top) Q8H [facility] Uday Alves MD ??? heparin (porcine) (1,000 units/mL) injection 0-4,000 Units 0-4,000 Units Intravenous BOLUS HEPARIN PP Aniya Henry MD And ??? heparin (porcine) 50 units/mL in sodium chloride 0.45% 500 mL infusion 0- 5,000 Units/hr Intravenous Continuous Aniya Henry MD 17 mL/hr at 11/05/21 0500 850 Units/hr at 11/05/21 0500 ??? AMIOdarone (Cordarone) injection Once PRN Jama Melo MD 150 mg at 11/04/21 1709 ??? lidocaine (pf) (Xylocaine) (20 mg/mL) 2% injection syringe Once PRN Jama Melo MD 100 mg at11/04/21 1707 ??? lidocaine (pf) (Xylocaine) (4 mg/mL) in dextrose 5% 500 mL infusion Continuous PRN Jama Melo MD 15 mL/hr at 11/05/21 0500 Rate Verify at 11/05/21 0500 ??? nitroGLYcerin (200 mcg/mL) in dextrose 5% 250 mL infusion Continuous PRN Jama Melo MD Stopped at 11/04/212115 ??? sodium chloride 0.9% infusion Continuous PRN Jama Melo MD Stopped at 11/04/212199 ??? iohexoL (Omnipaque) (350 mg/mL) solution Once PRN Jama Melo MD 12 mL at 11/04/21 181 ??? niCARdipine (Cardene) (0.2 mg/mL) in sodium chloride 200 mL infusion 5 mg/hr Intravenous Continuous Fausto Earl MD 25 mL/hr at 11/05/21 0500 5 mg/hr at 11/05/21 0500 ??? AMIOdarone (Cordarone) (1.8 mg/mL) in dextrose 5% 200 mL infusion 0.5-1 mg/min Intravenous Continuous Richard Asher MD 33.3 mL/hr at 11/05/21 0658 1 mg/min at 11/05/21 0658 Home Medications: No current facility-administered medications on file prior to encounter. Current Outpatient Medications on File Prior to Encounter Medication Sig Dispense Refill ??? vitamin C 500 mg Tablet TAKE ONE TABLET BY MOUTH EVERY DAY ??? cetirizine (ZyrTEC) 10 mg Tablet TAKE ONE TABLET BY MOUTH EVERY DAY ??? clonazePAM (KlonoPIN) 0.5 mg Tablet Every 8 hours. ??? FLUoxetine (PROzac) 20 mg/5 mL (4 mg/mL) Solution ??? fluticasone (Flonase Sensimist) 27.5 mcg/actuation [place], Suspension every 24 hours. ??? fluticasone propionate (Flovent HFA) 110 mcg/actuation HFA Aerosol Inhaler Every 12 hours. ??? ipratropium-albuteroL (Duoneb) 0.5 mg-3 mg(2.5 mg base)/3 mL Solution for Nebulization Every 6 hours. ??? ondansetron (Zofran) 4 mg Tablet Zofran 4 mg tablet Take 1 tablet every 6-8 hours by oral route as directed for 3 days. ??? mag/aluminum/sod bicarb/alginc (GAVISCON ORAL) Take by mouth. ??? pantoprazole EC (Protonix) 40 mg Tablet, Delayed Release (E.C.) Take 40 mg by mouth daily. ??? esomeprazole (NexIUM) 20 mg Capsule, Delayed Release(E.C.) TAKE 1 CAPSULE BY MOUTH ONCE DAILY FOR 30 DAYS ??? famotidine (Pepcid) 40 mg Tablet TAKE 1 TABLET BY MOUTH ONCE DAILY ??? sucralfate (Carafate) 1 gram Tablet TAKE 1 TABLET BY MOUTH TWICE DAILY ON AN EMPTY STOMACH ??? diphenhydrAMINE/aluminum-magnesium hydroxide with simethicone/lidocaine (BMX) (6.67 mg-0.83 mg-13.33 mg-1.33 mg/mL) oral liquid Take by mouth. ??? diazePAM (Valium) 5 mg Tablet Take 1 tablet by mouth in the morning for anxiety. Take half a tablet at night before bed for sleep. 0 ??? hydrOXYzine (Atarax) 25 mg Tablet Take 1 tablet by mouth 3 times daily as needed for Anxiety. 30 tablet 12 ??? lisinopril (PRINIVIL;ZESTRIL) 10 mg Tablet Take 10 mg by mouth daily. 2 ??? prazosin (MINIPRESS) 1 mg Capsule Take 1 mg by mouth 3 times daily. ??? albuterol 90 mcg/actuation HFA Aerosol Inhaler Inhale 2 puffs into the lungs every 4 hours as needed for Wheezing. Use with spacer ??? calcium carbonate (TUMS) 200 mg calcium (500 mg) Tablet, Chewable Take 1 tablet by mouth as needed. Past Medical History: Past Medical History: Diagnosis Date ??? Anorexia ??? Anxiety 08/03/2014 ??? Asthma 08/03/2014 ??? Flaherty's palsy ??? Chest pain 01/17/2016 ETT 2014- negative ST III Echo 2013 ??Normal LV size and function, trivial TR, mild PI ??? Depression ??? Headache ??? Hypertension 08/03/2014 Past Surgical History: Procedure Laterality Date ??? DILATION AND CURETTAGE OF UTERUS x2 ??? PRO UPPER GI ENDOSCOPY, DIAGNOSTIC N/A 01/09/2021 EGD, UPPER GI ENDOSCOPY performed by Dudley Alva MD at [facility] END[facility] Allergies: Allergies Allergen Reactions ??? Augmentin [Amoxicillin-Pot Clavulanate] Rash Unsure if allergic ??? Ipratropium Other (See Comments) ??? Morphine Other (See Comments) Cannot recall ??? Penicillins Rash ??? Seroquel [Quetiapine] Other (See Comments) Made head feel loopy. Family history: Family History Problem Relation Age of Onset ??? Migraines Mother ??? Cancer Mother Social history: Social History Tobacco Use ??? Smoking status: [...] use: Not Currently Comment: CBD as needed Physical Exam: Vitals: Last value Range last 24 hrs Temperature Temp: 36.2 ??C (97.2 ??F) Temp: [35.5 ??C (95.9 ??F)-37.2 ??C (99 ??F)] Heart Rate Heart Rate: 53 Heart Rate: [46-129] Blood Pressure BP: 111/42 BP: (77-139)/(42-95) Respiratory Rate Resp: 13 Resp: [10-74] SpO2 SpO2: 97 % SpO2: [96 %-100 %] I/O: 11/04 0701 - 11/05 0700 In: 1361 [I.V.:1361] Out: 1989 [Urine:1490] Neuro Exam: MS: Intubated and sedated on propofol 50mcg/kg/min and fent 200mcg/hr Not arousable to deep noxious stimuli CN: PERRLA but sluggish, minimal lateral eye movement on VOR testing, gag present, Corneal reflex preserved on R, minimal on L, no apparent facial asymmetry Sensorimotor: Spontaneous movement in bilateral upper and lower extremities. No withdrawal to nailbed pressure. Reflexes: 2+ in upper, 2+ in lower. Babinski present on L. Coordination: No abnormal involuntary movement at rest Gait: Deferred Labs: Recent Results (from the past 24 hour(s)) BLOOD GAS 2 VENOUS Result Value Ref Range pH Rafael 7.09 (CRIT) 7.32 - 7.42 pCO2 Rafael 66 (CRIT) 41 - 51 mmHg pO2 Rafael 31 25 - 40 mmHg HCO3 Rafael 19.7 mmol/L BE Rafael -10.1 mmol/L Hgb Blood Gas 13.6 11.7 - 15.5 g/dL O2HB Rafael 40.0 % COHB Rafael 1.8 % METHB Rafael 0.5 <=1.5 % Na Whole Blood 142 135 - 145 mmol/L K Whole Blood 4.5 3.5 - 5.0 mmol/L ICa Whole Blood 1.25 1.15 - 1.33 mmol/L CL Whole Blood 102 98 - 107 mmol/L Gluc Whole Bld 189 65 - 199 mg/dL Lactate WB 6.5 (CRIT) 0.5 - 2.2 mmol/L BGas Source Venous Comprehensive metabolic panel (non-fasting) Result Value Ref Range Glucose Lvl 196 65 - 199 mg/dL BUN 20 (H) 8 - 18 mg/dL Creatinine 1.55 (H) 0.70 - 1.20 mg/dL Sodium 140 135 - 145 mmol/L Potassium 5.1 (H) 3.5 - 5.0 mmol/L Chloride 104 98 - 107 mmol/L CO2 19 (L) 22 - 31 mmol/L Anion Gap 17 (H) 5 - 15 mmol/L Calcium 9.4 8.5 - 10.5 mg/dL Total Protein 6.8 6.1 - 8.0 g/dL Albumin 4.4 3.2 - 5.2 g/dL AST 72 (H) 0 - 30 unit/L ALT 79 (H) 0 - 30 unit/L Alk Phos 88 35 - 105 unit/L Total Bilirubin 0.2 0.2 - 1.3 mg/dL Estimated GFR 42 (L) >=60 mL/min/1.73 m?? Troponin Result Value Ref Range Troponin-T 0.02 (H) 0.00 - 0.00 ng/mL Magnesium Result Value Ref Range Magnesium 1.04 0.69 - 1.07 mmol/L Phosphorus Result Value Ref Range Phosphorus 6.2 (H) 2.5 - 4.5 mg/dL Acetaminophen level Result Value Ref Range Acetamin Lvl <5 (L) 10 - 30 mg/L Salicylate Result Value Ref Range Salicylate Lvl <3 mg/L Ethanol Level Result Value Ref Range Ethanol Lvl <100 <=99 mg/L COVID-19 PCR Specimen: Nasopharyngeal Swab Symptoms->COVID-19 Suspected Result Value Ref Range SARS-CoV-2 RNA PCR Not Detected Not Detected SARS-CoV-2 Source [employer] Swab Hemogram Result Value Ref Range WBC 25.6 (H) 4.0 - 9.5 x10(3)/mcL RBC 4.96 4.00 - 5.21 x10(6)/mcL Hemoglobin 12.9 11.7 - 15.5 g/dL Hematocrit 43.1 35.7 - 45.8 % MCV 86.9 82.6 - 94.4 fL MCH 26.0 (L) 27.1 - 32.0 pg MCHC 29.9 (L) 31.7 - 35.0 g/dL Platelets 298 145 - 357 x10(3)/mcL RDWSD 51.5 (H) 37.0 - 46.0 fL RDWCV 16.5 (H) 11.5 - 14.1 % MPV 11.5 7.6 - 12.9 fL nRBC % Auto 0.0 % nRBC Abs Auto 0.000 0.000 - 0.000 x10(3)/mcL Differential, Automated Result Value Ref Range Neutrophils % 72.9 % Neutr Abs (ANC) 18.66 (H) 1.70 - 6.10 x10(3)/mcL Lymphocytes % 19.3 % Lymphocytes Abs 4.9 (H) 0.9 - 3.2 x10(3)/mcL Monocytes % 4.2 % Monocyte Abs 1.1 (H) 0.3 - 0.9 x10(3)/mcL Eosinophils % 1.9 % Eosinophils Abs 0.5 (H) 0.0 - 0.4 x10(3)/mcL Basophils % 0.5 % Basophils Abs 0.1 0.0 - 0.1 x10(3)/mcL Immature Gran % 1.20 % [place] Gran Abs 0.30 (H) 0.00 - 0.04 x10(3)/mcL Blue Tube HOLD Result Value Ref Range Blue Hold Sample in lab. Gold Tube HOLD Result Value Ref Range Gold Hold Sample in lab. D-Dimer, Quantitative Result Value Ref Range D-Dimer, Quant 5,001 (H) 0 - 500 FEU ng/ml Osmolality Result Value Ref Range Osmolality 306 (H) 275 - 295 mOsm/kg Scan, Peripheral Blood Result Value Ref Range Plat Estimate Normal RBC Morphology Abnormal Hypochromia Slight Triglyceride Result Value Ref Range Triglycerides 130 mg/dL CK Result Value Ref Range CK, Total 135 0 - 160 unit/L Rapid Drug Screen, Urine (DAVID Request) Result Value Ref Range DAVID Conf Requested No DAVID Requested See Comment POCT urine Result Value Ref Range POC Urine HCG Negative Negative - Negative POC Control Internal Controls Acceptable Urinalysis with reflex Culture Specimen: Indwelling Catheter Urine Result Value Ref Range Glucose UA Negative Negative mg/dL Protein UA 100 (A) Negative mg/dL Bilirubin UA Negative Negative mg/dL Urobilinogen UA Normal Normal mg/dL pH UA 6.5 5.0 - 8.0 Blood UA Trace (A) Negative mg/dL Ketones UA Negative Negative mg/dL Nitrite UA Negative Negative Leukocytes UA Negative Negative mcL Appearance UA Clear Clear Spec [place] UA 1.020 1.005 - 1.030 Color UA Yellow Yellow Culture Reflexed No Rapid Drug Screen w/o Confirmation, Urine Result Value Ref Range U Barbiturates Screen None Detected None Detected U Benzodiazepines Screen Presumptive Pos (A) None Detected U Cocaine Screen None Detected None Detected U Methadone Metabolites Screen None Detected None Detected U Opiate Screen None Detected None Detected U Cannabinoid Screen None Detected None Detected U Oxycodone Screen None Detected None Detected U Buprenorphine Screen None Detected None Detected U Fentanyl Screen None Detected None Detected U Tricyclics Screen None Detected None Detected U Ethanol Screen None Detected None Detected U Amphetamines Screen None Detected None Detected U Adulterants Screen None Detected None Detected Urinalysis Microscopic Exam Result Value Ref Range RBC UA 1 0 - 4 /HPF WBC UA 2 0 - 5 /HPF Squam Epith UA 4 <=4 /HPF Hyaline Cast UA 7 (H) 0 - 2 /LPF BLOOD GAS 2 ARTERIAL Result Value Ref Range pH Art 7.23 (CRIT) 7.35 - 7.45 pCO2 Art 44 35 - 45 mmHg pO2 Art 199 (H) 85 - 104 mmHg HCO3 Art 18.1 (L) 20.0 - 26.0 mmol/L BE Art -9.4 (L) -3.0 - 3.0 mmol/L Hgb Blood Gas 11.8 11.7 - 15.5 g/dL O2HB Art 97.3 (H) 94.0 - 97.0 % COHB Art 0.3 % METHB Art 0.6 <=1.5 % Na Whole Blood 139 135 - 145 mmol/L K Whole Blood 4.0 3.5 - 5.0 mmol/L ICa Whole Blood 1.11 (L) 1.15 - 1.33 mmol/L CL Whole Blood 108 (H) 98 - 107 mmol/L Gluc Whole Bld 128 65 - 199 mg/dL Lactate WB 2.2 0.5 - 2.2 mmol/L BLOOD GAS 2 ARTERIAL Result Value Ref Range pH Art 7.36 7.35 - 7.45 pCO2 Art 37 35 - 45 mmHg pO2 Art 187 (H) 85 - 104 mmHg HCO3 Art 20.4 20.0 - 26.0 mmol/L BE Art -5.1 (L) -3.0 - 3.0 mmol/L Hgb Blood Gas 12.0 11.7 - 15.5 g/dL O2HB Art 97.4 (H) 94.0 - 97.0 % COHB Art 0.3 % METHB Art 0.5 <=1.5 % Na Whole Blood 138 135 - 145 mmol/L K Whole Blood 5.0 3.5 - 5.0 mmol/L ICa Whole Blood 1.12 (L) 1.15 - 1.33 mmol/L CL Whole Blood 107 98 - 107 mmol/L Gluc Whole Bld 92 65 - 199 mg/dL Lactate WB 1.1 0.5 - 2.2 mmol/L Troponin Result Value Ref Range Troponin-T 0.24 (H) 0.00 - 0.00 ng/mL POCT Glucose Result Value Ref Range POC Glucose 94 65 - 199 mg/dL Hemogram Result Value Ref Range WBC 16.8 (H) 4.0 - 9.5 x10(3)/mcL RBC 4.23 4.00 - 5.21 x10(6)/mcL Hemoglobin 11.0 (L) 11.7 - 15.5 g/dL Hematocrit 34.9 (L) 35.7 - 45.8 % MCV 82.5 (L) 82.6 - 94.4 fL MCH 26.0 (L) 27.1 - 32.0 pg MCHC 31.5 (L) 31.7 - 35.0 g/dL Platelets 230 145 - 357 x10(3)/mcL RDWSD 49.1 (H) 37.0 - 46.0 fL RDWCV 16.6 (H) 11.5 - 14.1 % MPV 11.9 7.6 - 12.9 fL nRBC % Auto 0.0 % nRBC Abs Auto 0.000 0.000 - 0.000 x10(3)/mcL Differential, Automated Result Value Ref Range Neutrophils % 80.8 % Neutr Abs (ANC) 13.58 (H) 1.70 - 6.10 x10(3)/mcL Lymphocytes % 12.3 % Lymphocytes Abs 2.1 0.9 - 3.2 x10(3)/mcL Monocytes % 6.0 % Monocyte Abs 1.0 (H) 0.3 - 0.9 x10(3)/mcL Eosinophils % 0.2 % Eosinophils Abs 0.0 0.0 - 0.4 x10(3)/mcL Basophils % 0.2 % Basophils Abs 0.0 0.0 - 0.1 x10(3)/mcL Immature Gran % 0.50 % Jena Gran Abs 0.08 (H) 0.00 - 0.04 x10(3)/mcL BLOOD GAS 2 ARTERIAL Result Value Ref Range pH Art 7.40 7.35 - 7.45 pCO2 Art 26 (L) 35 - 45 mmHg pO2 Art 228 (H) 85 - 104 mmHg HCO3 Art 16.2 (L) 20.0 - 26.0 mmol/L BE Art -8.9 (L) -3.0 - 3.0 mmol/L Hgb Blood Gas 10.7 (L) 11.7 - 15.5 g/dL O2HB Art 98.0 (H) 94.0 - 97.0 % COHB Art 0.3 % METHB Art 0.6 <=1.5 % Na Whole Blood 134 (L) 135 - 145 mmol/L K Whole Blood 4.2 3.5 - 5.0 mmol/L ICa Whole Blood 1.09 (L) 1.15 - 1.33 mmol/L CL Whole Blood 109 (H) 98 - 107 mmol/L Gluc Whole Bld 103 65 - 199 mg/dL Lactate WB 0.9 0.5 - 2.2 mmol/L FIO2 Art 60 % PF Ratio Art 380 Temp Art 35.5 Celsius Green Tube HOLD Result Value Ref Range Green Hold Sample in lab. BLOOD GAS 2 ARTERIAL Result Value Ref Range pH Art 7.36 7.35 - 7.45 pCO2 Art 33 (L) 35 - 45 mmHg pO2 Art 86 85 - 104 mmHg HCO3 Art 18.4 (L) 20.0 - 26.0 mmol/L BE Art -7.0 (L) -3.0 - 3.0 mmol/L Hgb Blood Gas 10.8 (L) 11.7 - 15.5 g/dL O2HB Art 94.7 94.0 - 97.0 % COHB Art 0.3 % METHB Art 0.7 <=1.5 % Na Whole Blood 136 135 - 145 mmol/L K Whole Blood 4.0 3.5 - 5.0 mmol/L ICa Whole Blood 1.12 (L) 1.15 - 1.33 mmol/L CL Whole Blood 109 (H) 98 - 107 mmol/L Gluc Whole Bld 103 65 - 199 mg/dL Lactate WB 0.8 0.5 - 2.2 mmol/L FIO2 Art 40 % PF Ratio Art 215 Basic Metabolic Panel (non-fasting) Result Value Ref Range Glucose Lvl 104 65 - 199 mg/dL BUN 17 8 - 18 mg/dL Creatinine 0.78 0.70 - 1.20 mg/dL Sodium 137 135 - 145 mmol/L Potassium 4.0 3.5 - 5.0 mmol/L Chloride 110 (H) 98 - 107 mmol/L CO2 19 (L) 22 - 31 mmol/L Anion Gap 8 5 - 15 mmol/L Calcium 7.7 (L) 8.5 - 10.5 mg/dL Estimated GFR 97 >=60 mL/min/1.73 m?? Heparin (unfractionated) Level Result Value Ref Range Heparin UFH Level 0.51 IU/mL Troponin Result Value Ref Range Troponin-T 0.07 (H) 0.00 - 0.00 ng/mL Magnesium Result Value Ref Range Magnesium 0.80 0.69 - 1.07 mmol/L Phosphorus Result Value Ref Range Phosphorus 2.9 2.5 - 4.5 mg/dL Hemogram Result Value Ref Range WBC 11.8 (H) 4.0 - 9.5 x10(3)/mcL RBC 3.73 (L) 4.00 - 5.21 x10(6)/mcL Hemoglobin 9.7 (L) 11.7 - 15.5 g/dL Hematocrit 30.9 (L) 35.7 - 45.8 % MCV 82.8 82.6 - 94.4 fL MCH 26.0 (L) 27.1 - 32.0 pg MCHC 31.4 (L) 31.7 - 35.0 g/dL Platelets 185 145 - 357 x10(3)/mcL RDWSD 50.1 (H) 37.0 - 46.0 fL RDWCV 16.7 (H) 11.5 - 14.1 % MPV 12.1 7.6 - 12.9 fL nRBC % Auto 0.0 % nRBC Abs Auto 0.000 0.000 - 0.000 x10(3)/mcL Differential, Automated Result Value Ref Range Neutrophils % 64.8 % Neutr Abs (ANC) 7.68 (H) 1.70 - 6.10 x10(3)/mcL Lymphocytes % 24.6 % Lymphocytes Abs 2.9 0.9 - 3.2 x10(3)/mcL Monocytes % 8.4 % Monocyte Abs 1.0 (H) 0.3 - 0.9 x10(3)/mcL Eosinophils % 1.4 % Eosinophils Abs 0.2 0.0 - 0.4 x10(3)/mcL Basophils % 0.3 % Basophils Abs 0.0 0.0 - 0.1 x10(3)/mcL Immature Gran % 0.50 % Jena Gran Abs 0.06 (H) 0.00 - 0.04 x10(3)/mcL Troponin Result Value Ref Range Troponin-T 0.06 (H) 0.00 - 0.00 ng/mL Heparin (unfractionated) Level Result Value Ref Range Heparin UFH Level 0.58 IU/mL Diagnostic Tests and Imaging: Results for orders placed or performed during the hospital encounter of 11/04/21 XR Chest One View (Exam End: 11/04/2021 10:09 AM) Impression Endotracheal tube terminates over the mid trachea. Thank you for letting us participate in the care of this patient. If you are a health care provider and have any questions regarding this report, please contact the number below. For patients who have questions please contact the health home day care provider that requested your imaging first. Abdomen 1 view (Generic) (Exam End: 11/04/2021 10:09 AM) Impression Orogastric tube placement, as above. Thank you for letting us participate in the care of this patient. If you are a health care provider and have any questions regarding this report, please contact the number below. For patients who have questions please contact the health home day care provider that requested your imaging first. Head wo Contrast (Generic) (Exam End: 11/04/2021 9:37 AM) Impression Diffuse cerebral edema consistent with the history. I have personally reviewed the image(s) and the resident's interpretation and agree with the findings, Alejo Garcia MD at 11/04/2021 9:55 AM Thank you for letting us participate in the care of this patient. If you are a health care provider and have any questions regarding this report, please contact the number below. For patients who have questions please contact the health home day care provider that requested your imaging first. Angiogram Chest for Pulmonary Embolus w Contrast (Exam End: 11/04/2021 9:37 AM) Impression 1. No pulmonary embolism identified. 2. Bibasilar atelectasis, particularly on the left where there is collapse of much of the left lower lobe. 3. Hazy opacities within the inferior left upper lobe are nonspecific and may be infectious or traumatic in nature. 4. Motion artifact or nondisplaced fracture of the mid sternum. Motion artifact is favored. Recommend clinical correlation. Thank you for letting us participate in the care of this patient. If you are a health care provider and have any questions regarding this report, please contact the number below. For patients who have questions please contact the health home day care provider that requested your imaging first. Chest One View (Exam End: 11/04/2021 8:22 PM) Impression 1. Lines and tubes as above. 2. Small left pleural effusion and left basilar atelectasis, compatible with expected postprocedural changes. I have personally reviewed the image(s) and the resident's interpretation and agree with the findings, Jennifer Bassett MD at 11/04/2021 8:53 PM Thank you for letting us participate in the care of this patient. If you are a health care provider and have any questions regarding this report, please contact the number below. For patients who have questions please contact the health home day care provider that requested your imaging first. Assessment: Aniya Lundy is a 36 y.o. female with PMHx of depression and anxiety who presented with cardiacarrest. Neurology is being consulted for concern of seizure. Patient has had VF cardiac arrest with multiple episodes of vasospasm in cardiac and peripheral vessels. Posturing of upper extremities noted overnight, but EEG without evidence of seizures. Recommend continuing EEG while on TTM. Nonfocal neurological examination today. Prior CT head with diffuse cerebral edema, but no focal pathology. No evidence on exam to suggest stroke, but given diffuse vasospasm would recommend trans-cranial doppler of head and neck to assess cerebral vessel patency. MRI/MRA would be ideal to assess for ischemia, but contraindicated in setting of TTM and IABP. Recommendations: - Continue EEG monitoring - No indication for anti-seizure medications at this time - Wean TTM as appropriate - US carotid neck - Transcranial doppler Patient discussed with Dr. Simon. Morgan Malin MD IM, PGY-1 Consult Neurology Service #[id number] 11/05/2021 ATTENDING NOTE: I reviewed the pertinent aspects of the history with the inpatient team and agree with the history as outlined in the resident's note. I repeated the pertinent aspects of the physical examination andagree with it as documented in the resident's note. Exam markedly limited by hypothermia protocol and sedation. However she demonstrates preserved brainstem reflexes and some semipurposeful response to noxious stimuli. Reflexes are brisk but symmetric and toes are mute to plantar stimulation. I reviewed the impression and plan with the resident and agree with it as documented. Neurologic prognosis pending completion of TTM and weaning of sedation. Exam is reassuring for preserved brainstem function and no good evidence for focality despite limitations of sedated exam. In order to evaluate forvasospastic central injury, MRI brain with MRA would be most helpful. However, an alternative wouldbe transcranial Doppler to assess for central vasospasm. MRA however should be performed when stable for this procedure. We will continue to follow with you. Yolanda Simon MD Associate Prof Neurol Neuromuscular Medicine & Clinical Neurophysiology * Consult Note - Rachel Ruelas MD - 11/04/2021 9:33 PM EST [facility] Department of Surgery Inpatient Consult Note Consultation Requested by: Valorie Obrien MD HPI: We are seeing Aniya Lundy today at the request of Dr. Valorie Obrien MD for evaluation and advice about loss of distal pulses s/p IABP. Aniya Lundy is a 36 y.o. female with a history of tobacco use, hypertension on ZANE-I at home, anxiety, depression and recent COVID-19 infection (diagnosed 09/27/2021) who suffered an out of hospital VF arrest at home today witnessed by her boyfriend. As per chart review: she awoke from sleep this morning with severe heartburn and palpitations and asked for a wet washcloth. She was found down,unresponsive, boyfriend started CPR. EMS found her in ventricular fibrillation and pulseless. They performed 2 minutes of CPR, gave 1 shock and 2 rounds of epinephrine. On arrival to the emergency department, her VBG was found to be 7.09/66 with a lactate of 6.5. She was taken to the label remover with the following findings: - Severe spasm of RFA & Near complete occlusion from apparent spasm around 6 Fr sheath. - Patient cardiac arrested x8 in the label remover. 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 ECHO (11/04/2021) - EF: 65% An IABP was placed through her right femoral artery and patient was transferred to CVICU. Upon arrival she was found to have no DP or PT signals for which vascular surgery were consulted. She is sedated and intubated and thus an accurate history and physical was obtained via chart review. She was on propofol, fentanyl, amiodarone and a heparin gtt. She was on VC PEEP 5, RR 18, VT 460 @ 60% FiO2. PMH: Past Medical History: Diagnosis Date ??? Anorexia ??? Anxiety 08/03/2014 ??? Asthma 08/03/2014 ??? Flaherty's palsy ??? Chest pain 01/17/2016 ETT 2013- negative ST III Echo 2013 ??Normal LV size and function, trivial TR, mild PI ??? Depression ??? Headache ??? Hypertension 08/03/2014 PSH: Past Surgical History: Procedure Laterality Date ??? DILATION AND CURETTAGE OF UTERUS x2 ??? PRO UPPER GI ENDOSCOPY, DIAGNOSTIC N/A 01/09/2021 EGD, UPPER GI ENDOSCOPY performed by Dudley Alva MD at [facility] ENDOSCOPY HOME MEDICATIONS: No current facility-administered medications on file prior to encounter. Current Outpatient Medications on File Prior to Encounter Medication Sig Dispense Refill ??? vitamin C 500 mg Tablet TAKE ONE TABLET BY MOUTH EVERY DAY ??? cetirizine (ZyrTEC) 10 mg Tablet TAKE ONE TABLET BY MOUTH EVERY DAY ??? clonazePAM (KlonoPIN) 0.5 mg Tablet Every 8 hours. ??? FLUoxetine (PROzac) 20 mg/5 mL (4 mg/mL) Solution ??? fluticasone (Flonase Sensimist) 27.5 mcg/actuation [place], Suspension every 24 hours. ??? fluticasone propionate (Flovent HFA) 110 mcg/actuation HFA Aerosol Inhaler Every 12 hours. ??? ipratropium-albuteroL (Duoneb) 0.5 mg-3 mg(2.5 mg base)/3 mL Solution for Nebulization Every 6 hours. ??? ondansetron (Zofran) 4 mg Tablet Zofran 4 mg tablet Take 1 tablet every 6-8 hours by oral route as directed for 3 days. ??? mag/aluminum/sod bicarb/alginc (GAVISCON ORAL) Take by mouth. ??? pantoprazole EC (Protonix) 40 mg Tablet, Delayed Release (E.C.) Take 40 mg by mouth daily. ??? esomeprazole (NexIUM) 20 mg Capsule, Delayed Release(E.C.) TAKE 1 CAPSULE BY MOUTH ONCE DAILY FOR 30 DAYS ??? famotidine (Pepcid) 40 mg Tablet TAKE 1 TABLET BY MOUTH ONCE DAILY ??? sucralfate (Carafate) 1 gram Tablet TAKE 1 TABLET BY MOUTH TWICE DAILY ON AN EMPTY STOMACH ??? diphenhydrAMINE/aluminum-magnesium hydroxide with simethicone/lidocaine (BMX) (6.67 mg-0.83 mg-13.33 mg-1.33 mg/mL) oral liquid Take by mouth. ??? diazePAM (Valium) 5 mg Tablet Take 1 tablet by mouth in the morning for anxiety. Take half a tablet at night before bed for sleep. 0 ??? hydrOXYzine (Atarax) 25 mg Tablet Take 1 tablet by mouth 3 times daily as needed for Anxiety. 30 tablet 12 ??? lisinopril (PRINIVIL;ZESTRIL) 10 mg Tablet Take 10 mg by mouth daily. 2 ??? prazosin (MINIPRESS) 1 mg Capsule Take 1 mg by mouth 3 times daily. ??? albuterol 90 mcg/actuation HFA Aerosol Inhaler Inhale 2 puffs into the lungs every 4 hours as needed for Wheezing. Use with spacer ??? calcium carbonate (TUMS) 200 mg calcium (500 mg) Tablet, Chewable Take 1 tablet by mouth as needed. ALLERGIES: Allergies Allergen Reactions ??? Augmentin [Amoxicillin-Pot Clavulanate] Rash Unsure if allergic ??? Ipratropium Other (See Comments) ??? Morphine Other (See Comments) Cannot recall ??? Penicillins Rash ??? Seroquel [Quetiapine] Other (See Comments) Made head feel loopy. FAMILY HISTORY: non-contributory in any family member SOCIAL HISTORY: Social History Socioeconomic History ??? Marital status: [...] on file Housing Stability: Not on file ROS: As stated above, otherwise 10 systems negative Pertinent items are noted in HPI. PHYSICAL EXAM Temp: [36.2 ??C (97.2 ??F)-37.2 ??C (99 ??F)] Heart Rate: [51-129] Resp: [10-74] BP: (77-139)/(45-95) SpO2: [96 %-100 %] Heart Rate from SpO2: [46 bpm-115 bpm] General: Sedated and intubated. Pulmonary: Sedated and intubated. Abdominal: Soft, no hemodynamic changes on exam. Extremities: Right: IABP in femoral artery. No popliteal, DP/PT signals. Cool (simliary to LLE), no mottling. Unable to assess motor and sensory. Left: Femoral palpable. Signals in popliteal, DP and PT. Cool (Similary to RLE) no mottling. Unableto assess motor and sensory. Neurological: Sedated and intubated. LABORATORY DATA Recent Labs 11/04/21 1530 11/04/21 0735 WBC 16.8* 25.6* HGB 11.0* 12.9 PLATELET 230 298 NA -- 140 K -- 5.1* CL -- 104 CO2 -- 19* BUN -- 20* CREATININE -- 1.55* MAGNESIUM -- 1.04 PHOS -- 6.2* GLUCOSE -- 196 LFT's Lab Results Component Value Date Alk Phos 88 11/04/2021 AST 72 (H) 11/04/2021 Albumin 4.4 11/04/2021 Total Bilirubin 0.2 11/04/2021 ALT 79 (H) 11/04/2021 Total Protein 6.8 11/04/2021 Coags No results found for: INR, PT, PTT MICRO: None pending IMAGING: None pending IMPRESSION & RECOMMENDATION Aniya Lundy is a 36 y.o. female with findings of diffuse coronary vasospasm and multiple episodes of VT/VF s/p L coronary angiography and IABP placement. At that time was also noted to have vasospasm of iliacs and femoral arteries. Postprocedurally, unable to obtain right leg DP/PT signals. Onclinical exam she has faint L popliteal and DP/PT signals and no signals on the right. However, both legs appear symmetric in color, temperature and appearance. Suspect that she is additionally having vasospasm of her right lower extremity similar to her initial angiography findings. No acute vascular surgery intervention needed at this time as long as she remains clinically unchanged. Recommend - q1 hour neurovascular checks - Continue therapeutic heparin infusion - Consider low dose infusion of CCB or other agent through right groin sheath to improve local vasospasm - Consider arterial duplex in the AM - Removal of IABP when able. Of note as this is suspected to be associated with vasospasm she may experience reperfusion injury and/or development of right leg compartment syndrome upon removal of IABP. Thank you for this consult. If you have any questions regarding this consult, please page [phone] if you have any further questions. [X] Consult service to continue to follow [] Consult service to sign off Rachel Ruelas Vascular Surgery Fellow pager [phone] 11/04/2021 Associated attestation - Joseph Baez MD - 11/06/2021 9:55 AM EST I saw and evaluated Aniya Lundy and agree with this note and plan. Joseph Baez MD, MS Section of Vascular Surgery * Brief Op Note - Jama Melo MD - 11/04/2021 6:15 PM EST Images from the original note were not included. Preliminary Cardiac Catheterization Procedure Note: Patient Name: Aniya Lundy : [id number] MR#: [id number] Case Date: 11/04/2021 [employer] Field Agent: Surgeon(s) and Role: * Jama Melo MD - Primary * Warren Ball MD - Fellow Preoperative diagnosis: Cardiac arrest Postoperative diagnosis: same, uncertain etiology. Diffuse coronary spasm and multiple episodes of VT/VF during procedure. Procedure(s) performed: Left coronary angiography, IABP placement, Ridgeview jazmin catheter insertion, cooling catheter placement in IVC. Access: 7 Fr RFA carrylng IABP, 9 Fr RIJ carrying [place], 9.5 Fr RFV cooling catheter A time-out was conducted prior to the start of the procedure to verify the correct patient and procedure, procedure location, and all relevant critical information. Findings: 1. Severe spasm of RFA on initial angiography to assess access. Near complete occlusion from apparent spasm around 6 Fr sheath. 2. Mild luminal irregularities of left coronary with initial angiogram, with progressive diffuse spasm of LM, LAD and LCX on one additional non-selective injection and one final selective injection. Progressive QRS widening and ST deviation seen during these small volume/low pressure injections andshortly afterwards she developed VT => rapidly deteriorated into VF which responded to a single shock. A brief electrical storm followed with repeat episodes requiring ~8 countershocks, each effective in restoring NSR but only temporarily with a persistently wide QRS. Lidocaine infusion was added to amiodarone already on board; an IABP was placed via the RFA and after this she had no further episodes of VT. We elected not to perform angiography of the RCA. 3. [place] Jazmin catheter placed via the RIJ with hemodynamics as below. A nitroglycerin infusion was started => MAP then observed to fall ffrom mid 80s to high 70s, a 250 cc fluid bolus was given. 4. Quattro cooling catheter placed via RFV to replace Arctic Sun which had been in place on arrivalto the lab. The patient appeared to have stabilized sufficiently to allow transport back to the [facility] in guardedcondition. Full report to follow. JAMA MELO MD * Consult Note - Teena Decker RN - 11/04/2021 3:56 PM EST Life Safety Program Consult Note Called to see Aniya Lundy who is a 36 y.o.female who presents to the emergency department to be via EMS for an out of hospital VF cardiac arrest status post 1 shock. EMS was activated by her boyfriend who per EMS report provided approximately 10 minutes of CPR. EMS found her pulseless and did 2 minutes of CPR, she was found in ventricular fibrillation status post 1 shock. Admission Date/Time 11/04/2021 7:20 AM Hospital Day 0 days Assessment: Arsenio Fox called at 15:15, when Life Safety RN arrived to bedside ROSC had been achieved. See Second Cook And Baker note for information prior to LS RN arrival. Plan: Remain on Floor- [facility] 22 Please page Life Safety at [phone] with any additional questions or concerns. Teena Decker RN 3:56 PM November 04, 2021 * ED Procedure Note - Dudley Owens MD - 11/04/2021 10:42 AM ESTAssociated Order(s): Arterial Line; Intubation Arterial Line Date/Time: 11/04/2021 10:42 AM Performed by: Dudley Owens MD Authorized by: Horace Nielsen MD [place] Protocol: Emergent situation Patient identity confirmed: Arm band Time out: Immediately prior to the procedure a time out was called A time out verifies correct patient, procedure, equipment, pc support specialist and site/side marked as required: Preparation: Preparation: Patient was prepped and draped in usual sterile fashion Indications: Indications: hemodynamic monitoring Location: Location: Right radial Procedure Details: Ultrasound Guidance: Yes Needle gauge: 20 Seldinger technique: Seldinger technique used Number of attempts: 1 Post-procedure: Post-procedure: Dressing applied patient tolerated the procedure well with no immediate complications Intubation Date/Time: 11/04/2021 10:51 AM Performed by: Dudley Owens MD Authorized by: Yohannes Dhillon MD [place] Protocol: Emergent situation Patient identity confirmed: Arm band Time out: Immediately prior to the procedure a time out was called A time out verifies correct patient, procedure, equipment, pc support specialist and site/side marked as required: Indications: Indications: Airway protection Procedure Details: Intubation method: Video-assisted Patient status: Paralyzed (RSI) Preoxygenation: Nonrebreather mask Selections made in this section will lock the Intubation Method section above.: Pretreatment meds: Fentanyl Ultrasound Guidance: No Sedation: Etomidate Paralytic: Rocuronium Laryngoscope size: Mac 3 Tube size (mm): 7.5 Tube type: Cuffed Number of attempts: 1 Cricoid pressure: No Cords visualized: Yes Post-procedure assessment: Chest rise and ETCO2 monitor Breath sounds: Equal Cuff inflated: Yes ETT to lip (cm): 24 ETT to teeth (cm): 23 Tube secured with: ETT lynch Chest x-ray interpreted by: Radiologist Chest x-ray findings: Endotracheal tube in appropriate position patient tolerated the procedure well with no immediate complications I performed the following procedure(s): endotrachael intubation and adult medical resuscitation. Associated attestation - Horace Nielsen MD - 11/04/2021 3:05 PM EST I was the attending physician supervising the resident in the above care and I was present with theresident for the entire procedures. * Consult Note - Valorie Obrien MD - 11/04/2021 9:21 AM EST Images from the original note were not included. [facility] [address], [place] [id number] INPATIENT CARDIOLOGY ADMISSION H&P Date of Consultation: 11/04/2021 have seen and examined this patient and discussed with the internet assessor, resident, fellow. I agree with the plan noted ?? This is a 36 year old woman who has no known cardiac disease but this morning was heard moaning in bed after which her boyfriend returned to the bedroom and found her unresponsive. He administered CPR X approx 10 min. EMS arrived and found her in ventricular fibrillation (no strips available to be reviewed) gave her one shock, began transport. Epi X 2 given with ROSC but no indication of meaningful response (mental status). Bedside echo by Dr. Alves was unremarkable. ?? She has a history of psychiatric disorders (bipolar) and is on several medications that can prolongthe QTc however review of her chart shows measures of ~ 480 or less. She presented to [facility] in Sep 2021 with chest pain but r/o for PR. She had COVID in 2020 (vaccination status unclear). See note below with history provided by Ms. Lundy's mother. ?? Initial venous pH 7.09 lactate 65. CK 135, d-dimer 5000 (r/o for PE), Serum creatinine 1.55 (baseline ~ 1.0), hemoglobin 12.4, platelets 298, WBC 25, AST 72 ALT 79. Troponin 0.02. ?? Shortly after 3 pm today, Dr. Marek Alves, community assistant was bedside when she again went into Vfib.While the etiology of her arrest is still not clear (she is at relatively low risk for obstructive coronary artery disease), I feel that defining her coronary anatomy is reasonable. We will also havea formal echocardiogram. ?? Valorie Obrien MD, Naye, [facility] Cardiology Attending ?? Admit Date: 11/04/2021 Hospital Day 0 days CC: Out of hospital VF arrest HPI: Aniya Lundy is a 36 y.o. female with a history of tobacco use, hypertension on ZANE-I at home, anxiety, depression and recent COVID-19 infection (diagnosed 09/27/2021) who suffered an out of hospital VF arrest at home today witnessed by her boyfriend. According to her boyfriend Dk, she awoke from sleep this morning with severe heartburn and palpitations and asked for a wet washcloth. When Dk returned, she was found blue and unresponsive. Dk performed about 10 minutes of bystander CPR before EMS arrived. EMS found her in ventricular fibrillation and pulseless. They performed 2 minutesof CPR, gave 1 shock and 2 rounds of epi. Per their report, she withdrew but did not follow commands. On arrival to the emergency department, her VBG was found to be 7.09/66 with a lactate of 6.5. She was intubated in the emergency department. ABG post intubation showed 7.2 3/44/199 with a lactate of 2.1. Labs were remarkable for WBC of 26, potassium of 5.1, creatinine 1.56, D-dimer 5000, troponin 0.02 and negative test. U tox is still pending. Post resuscitation ECG shows sinus tachycardia with QTC of 484 and no acute ischemic changes. No significant changes were found compared to her prior ECG. There was no evidence of Brugada or accessory pathway. The patient underwent CT PE which was negative for PE. Her head CT was also negative for bleed. I had a long conversation with her mother who confirmed most of her medical history. According to the mother, Aniya was not the most physically active child growing up but she was able to keep up with her peers. Aniya never had a cardiac diagnosis growing up. Aniya has 3 children but only lives with one of them intermittently. Her first child lives with Aniya's mother and a second child lives with her other sister. Aniya's mother states that Aniya has been struggling with her bipolar for a long time and has not been able to live with all 3 children due to her bipolar, anxiety and depression issues. To mother's knowledge, Aniya has not been engaged in any recreational drugs. Aniya recently told her mother that she has tried heroin once in the past. Aniya has a history of 1 miscarriage. There is no known cardiac history in the patient's first-degree relatives, however, Shannon (Aniya's mother) has a female cousin who at age 18 due to an underlying cardiac issue that was known since . Shannon denies any history of sudden cardiac in the family. Shannon also told me that Aniya has been complaining of intermittent heaviness in the chest, GERD symptoms, and fullness for the past 6 months. Aniya had a recent visit to [facility] ED in mid September with sharp chest pain. She ruled out for ACS at the time and was discharged home. Shannon also noted that Aniya has been mentioning passive suicidal ideation, but she never thought Aniya would act on it. I tried calling Dk this morning but was unable to reach him. Past Medical History: Diagnosis Date ??? Anorexia ??? Anxiety 08/03/2014 ??? Asthma 08/03/2014 ??? Flaherty's palsy ??? Chest pain 01/17/2016 ETT 2014- negative ST III Echo 2013 ??Normal LV size and function, trivial TR, mild PI ??? Depression ??? Headache ??? Hypertension 08/03/2014 Past Surgical History: Procedure Laterality Date ??? DILATION AND CURETTAGE OF UTERUS x2 ??? PRO UPPER GI ENDOSCOPY, DIAGNOSTIC N/A 01/09/2021 EGD, UPPER GI ENDOSCOPY performed by Dudley Alva MD at [facility] ENDOSCOPY Allergies Allergen Reactions ??? Augmentin [Amoxicillin-Pot Clavulanate] Rash Unsure if allergic ??? Ipratropium Other (See Comments) ??? Morphine Other (See Comments) Cannot recall ??? Penicillins Rash ??? Seroquel [Quetiapine] Other (See Comments) Made head feel loopy. In-Patient Medications: ??? shift total and Settings verification 1 each Intravenous 2 Times Daily - Shift Total ??? fentaNYL (PF) 100 mcg Intravenous Once ??? famotidine 20 mg Oral BID ??? chlorhexidine 15 mL Oral BID ??? white petrolatum-mineral oiL 1 each Both Eyes BID ??? fentaNYL ??? NORepinephrine Stopped (11/04/21 0828) ??? propofoL 30 mcg/kg/min (11/04/21 0850) Family History: Family History Problem Relation Age [...] Stability: Not on file Physical Exam: Last value Range last 8 hrs Temperature Temp: 36.2 ??C (97.2 ??F) Temp: [36.2 ??C (97.2 ??F)] Heart Rate Heart Rate: 78 Heart Rate: [78-129] Blood Pressure BP: 111/61 BP: (77-139)/(47-95) Respiratory Rate Resp: 16 Resp: [10-26] SpO2 SpO2: 100 % SpO2: [96 %-100 %] No intake or output data in the 24 hours ending 11/04/21 0921 Wt & BMI By Encounter Date ED from 11/04/2021 in Emergency Department [facility] ED from 10/10/2021 in Emergency Services at [facility] Weight 70 kg (154 lb 5.2 oz) 1 11/04/2021 0723 72.6 kg (160 lb) 1 10/10/2021 1657 BMI -- 27.46 1 10/10/2021 1657 General: Intubated and sedated, frequent coughing Cardiac: Regular, tachycardic Respiratory: Equal breath sounds bilaterally Abdominal: Soft and non-tender with no organomegaly. Normal bowel sounds Extremities: Warm to touch, no edema ECG: sinus tachycardia, QTc 484, no evidence of delta wave or Brugada CTPE 11/04/2021 1. No pulmonary embolism identified. 2. Bibasilar atelectasis, particularly on the left where there is collapse of much of the left lower lobe. 3. Hazy opacities within the inferior left upper lobe are nonspecific and may be infectious or traumatic in nature. 4. Motion artifact or nondisplaced fracture of the mid sternum. Motion artifact is favored. Recommend clinical correlation. ?? Recent Labs 11/04/21 0735 WBC 25.6* HGB 12.9 HCT 43.1 PLATELET 298 Recent Labs 11/04/21 0735 NA 140 K 5.1* CL 104 CO2 19* BUN 20* CREATININE 1.55* Recent Labs 11/04/21 0735 AST 72* ALT 79* ALKPHOS 88 BILITOT 0.2 Recent Labs 11/04/21 0735 CALCIUM 9.4 MAGNESIUM 1.04 PHOS 6.2* No results for input(s): INR, PT, PTT in the last 168 hours. Recent Labs 11/04/21 0735 TROPONINT 0.02* ProBNP Date Value Ref Range Status 07/04/2016 1,228 (H) <=125 pg/mL Final Assessment/Recommendations: Aniya Lundy is a 36 y.o. female with a history of tobacco use, hypertension on ZANE-I at home, anxiety, depression and recent COVID-19 infection (diagnosed 09/27/2021) who suffered an out of hospital VF arrest at home today witnessed by her boyfriend. The etiology of her VF arrest at home is not clear at this time. However, it does not appear to be related to acute coronary event given normal ECG, preserved biventricular function without obvious WMA on bedside echocardiogram, and minimal troponin elevation despite CPR. Per limited view of the coronary arteries on CTPE, she does not appear to have anomalous coronary origin. Other differential includes Torsades de pointes in the setting of QTc prolonging medications at home, however, her QTc in the ED is within normal range. Her electrolytes are also normal and her UTox is only positive for benzodiazepine. Other rare diagnoses to consider include myocarditis given recent COVID-19 infection, ARVC, and other primary electrical issues (LQTS, Brugada, WPW -- no evidence of these on resting ECG). # Out of hospital VF arrest # Hypertension # Recent COVID-19 infection (diagnosed 09/27/2021), PCR negative on 11/04/2021 Neuro - Has not had meaningful neuro response since arrest - Propofol and fentanyl for sedation - Targeted temperature management (36C) for 48 hours Pulm - No active issues, currently intubated for airway protection - Adult vent protocol CV - Hemodynamically and electrically stable, no ST elevation - no indication for urgent cath - will need to look at her coronary anatomy once renal function is stable - Formal echo pending to r/o structural disease, will likely need cardiac MRI when more stable - No reversible causes identified at this time, will hold all home psych meds (QTc prolonging medications) - Will engage EP once initial work up is completed Renal - Acute kidney injury in the setting of cardiac arrest - Place ev, monitor urine output and electrolytes, no need for INTELLIGENCE INTERN at this time GI - Place OGT - Stress ulcer ppx ID - Will obtain blood cultures, no concern for active infection at this time based on history FULL CODE Nex of kin: Mother Shannon [phone] (verbal consent for central line obtained) Uday Alves MD ([place]) Cardiovascular Medicine Fellow Pager [phone] * Consult Note - Jhony Regan, DO - 11/04/2021 9:02 AM EST Neurology Inpatient Consult Note - 11/04/2021 Admit date: 11/04/2021 Attending: Horace Nielsen MD ID: Aniya Lundy is a 36 y.o. female with PMHx of depression and anxiety who presented with cardiac arrest. Neurology is being consulted for concern of seizure. HPI: History obtained from chart review. Patient reportedly woke up this morning complaining of severe heartburn like pain. By the time boyfriend went to check on her, she was noted to be unresponsive andblue. Boyfriend had initiated CPR for about 10 minutes before EMS arrived where she was found to bein VT/VF pulseless arrest. ROSC was obtained after 2 minutes of CPR, 2 rounds of epinephrine, and shock. On arrival to ED, she was noted to be unresponsive but had one episode of posturing, described as both arms in forced flexion. She was initially given fentanyl with resolution of this posturing and soon paralysed and intubated. Hospital Medications: Current Facility-Administered Medications Medication Dose Route Frequency Provider Last Rate Last Admin ??? propofoL (Diprivan) 10 mg/mL infusion ??? fentaNYL (PF) (Sublimaze) 50 mcg/mL injection ??? fentaNYL (PF) (50 mcg/mL) infusion bag 50 mL 50 mcg/hr Intravenous Continuous Kev Nielsen MD And ??? fentaNYL (50 mcg/mL) bolus from infusion 50 mcg 50 mcg Intravenous Q15 Min PRN Horace Nielsen MD And ??? fentaNYL shift total and Settings verification 1 each Intravenous 2 Times Daily - Shift Total Horace Nielsen MD ??? propofoL (Diprivan) 10 mg/mL infusion ??? NORepinephrine (Levophed) 4 mg/250 mL (16 mcg/mL) infusion ??? NORepinephrine (Levophed) (16 mcg/mL) in dextrose 5% 250 mL infusion 0-100 mcg/min Intravenous Continuous Horace Nielsen MD ??? fentaNYL (pf) (50 mcg/mL) multi-dose injection 100 mcg 100 mcg Intravenous Once Horace Nielsen MD Current Outpatient Medications Medication Sig Dispense Refill ??? vitamin C 500 mg Tablet TAKE ONE TABLET BY MOUTH EVERY DAY ??? cetirizine (ZyrTEC) 10 mg Tablet TAKE ONE TABLET BY MOUTH EVERY DAY ??? clonazePAM (KlonoPIN) 0.5 mg Tablet Every 8 hours. ??? FLUoxetine (PROzac) 20 mg/5 mL (4 mg/mL) Solution ??? fluticasone (Flonase Sensimist) 27.5 mcg/actuation Troy, Suspension every 24 hours. ??? fluticasone propionate (Flovent HFA) 110 mcg/actuation HFA Aerosol Inhaler Every 12 hours. ??? ipratropium-albuteroL (Duoneb) 0.5 mg-3 mg(2.5 mg base)/3 mL Solution for Nebulization Every 6 hours. ??? ondansetron (Zofran) 4 mg Tablet Zofran 4 mg tablet Take 1 tablet every 6-8 hours by oral route as directed for 3 days. ??? mag/aluminum/sod bicarb/alginc (GAVISCON ORAL) Take by mouth. ??? pantoprazole EC (Protonix) 40 mg Tablet, Delayed Release (E.C.) Take 40 mg by mouth daily. ??? esomeprazole (NexIUM) 20 mg Capsule, Delayed Release(E.C.) TAKE 1 CAPSULE BY MOUTH ONCE DAILY FOR 30 DAYS ??? famotidine (Pepcid) 40 mg Tablet TAKE 1 TABLET BY MOUTH ONCE DAILY ??? sucralfate (Carafate) 1 gram Tablet TAKE 1 TABLET BY MOUTH TWICE DAILY ON AN EMPTY STOMACH ??? diphenhydrAMINE/aluminum-magnesium hydroxide with simethicone/lidocaine (BMX) (6.67 mg-0.83 mg-13.33 mg-1.33 mg/mL) oral liquid Take by mouth. ??? diazePAM (Valium) 5 mg Tablet Take 1 tablet by mouth in the morning for anxiety. Take half a tablet at night before bed for sleep. 0 ??? hydrOXYzine (Atarax) 25 mg Tablet Take 1 tablet by mouth 3 times daily as needed for Anxiety. 30 tablet 12 ??? lisinopril (PRINIVIL;ZESTRIL) 10 mg Tablet Take 10 mg by mouth daily. 2 ??? prazosin (MINIPRESS) 1 mg Capsule Take 1 mg by mouth 3 times daily. ??? albuterol 90 mcg/actuation HFA Aerosol Inhaler Inhale 2 puffs into the lungs every 4 hours as needed for Wheezing. Use with spacer ??? calcium carbonate (TUMS) 200 mg calcium (500 mg) Tablet, Chewable Take 1 tablet by mouth as needed. Home Medications: No current facility-administered medications on file prior to encounter. Current Outpatient Medications on File Prior to Encounter Medication Sig Dispense Refill ??? vitamin C 500 mg Tablet TAKE ONE TABLET BY MOUTH EVERY DAY ??? cetirizine (ZyrTEC) 10 mg Tablet TAKE ONE TABLET BY MOUTH EVERY DAY ??? clonazePAM (KlonoPIN) 0.5 mg Tablet Every 8 hours. ??? FLUoxetine (PROzac) 20 mg/5 mL (4 mg/mL) Solution ??? fluticasone (Flonase Sensimist) 27.5 mcg/actuation [place], Suspension every 24 hours. ??? fluticasone propionate (Flovent HFA) 110 mcg/actuation HFA Aerosol Inhaler Every 12 hours. ??? ipratropium-albuteroL (Duoneb) 0.5 mg-3 mg(2.5 mg base)/3 mL Solution for Nebulization Every 6 hours. ??? ondansetron (Zofran) 4 mg Tablet Zofran 4 mg tablet Take 1 tablet every 6-8 hours by oral route as directed for 3 days. ??? mag/aluminum/sod bicarb/alginc (GAVISCON ORAL) Take by mouth. ??? pantoprazole EC (Protonix) 40 mg Tablet, Delayed Release (E.C.) Take 40 mg by mouth daily. ??? esomeprazole (NexIUM) 20 mg Capsule, Delayed Release(E.C.) TAKE 1 CAPSULE BY MOUTH ONCE DAILY FOR 30 DAYS ??? famotidine (Pepcid) 40 mg Tablet TAKE 1 TABLET BY MOUTH ONCE DAILY ??? sucralfate (Carafate) 1 gram Tablet TAKE 1 TABLET BY MOUTH TWICE DAILY ON AN EMPTY STOMACH ??? diphenhydrAMINE/aluminum-magnesium hydroxide with simethicone/lidocaine (BMX) (6.67 mg-0.83 mg-13.33 mg-1.33 mg/mL) oral liquid Take by mouth. ??? diazePAM (Valium) 5 mg Tablet Take 1 tablet by mouth in the morning for anxiety. Take half a tablet at night before bed for sleep. 0 ??? hydrOXYzine (Atarax) 25 mg Tablet Take 1 tablet by mouth 3 times daily as needed for Anxiety. 30 tablet 12 ??? lisinopril (PRINIVIL;ZESTRIL) 10 mg Tablet Take 10 mg by mouth daily. 2 ??? prazosin (MINIPRESS) 1 mg Capsule Take 1 mg by mouth 3 times daily. ??? albuterol 90 mcg/actuation HFA Aerosol Inhaler Inhale 2 puffs into the lungs every 4 hours as needed for Wheezing. Use with spacer ??? calcium carbonate (TUMS) 200 mg calcium (500 mg) Tablet, Chewable Take 1 tablet by mouth as needed. Past Medical History: Past Medical History: Diagnosis Date ??? Anorexia ??? Anxiety 08/03/2014 ??? Asthma 08/03/2014 ??? Flaherty's palsy ??? Chest pain 01/17/2016 ETT 2014- negative ST III Echo 2013 ??Normal LV size and function, trivial TR, mild PI ??? Depression ??? Headache ??? Hypertension 08/03/2014 Past Surgical History: Procedure Laterality Date ??? DILATION AND CURETTAGE OF UTERUS x2 ??? PRO UPPER GI ENDOSCOPY, DIAGNOSTIC N/A 01/09/2021 EGD, UPPER GI ENDOSCOPY performed by Dudley Alva MD at [facility] END[facility]COPY Allergies: Allergies Allergen Reactions ??? Augmentin [Amoxicillin-Pot Clavulanate] Rash Unsure if allergic ??? Ipratropium Other (See Comments) ??? Morphine Other (See Comments) Cannot recall ??? Penicillins Rash ??? Seroquel [Quetiapine] Other (See Comments) Made head feel loopy. Family history: Family History Problem Relation Age of Onset ??? Migraines Mother ??? Cancer Mother Social history: Social History Tobacco Use ??? Smoking status: [...] use: Not Currently Comment: CBD as needed Physical Exam: Vitals: Last value Range last 24 hrs Temperature Temp: 36.2 ??C (97.2 ??F) Temp: [36.2 ??C (97.2 ??F)] Heart Rate Heart Rate: 78 Heart Rate: [78-129] Blood Pressure BP: 111/61 BP: (77-139)/(47-95) Respiratory Rate Resp: 16 Resp: [10-26] SpO2 SpO2: 100 % SpO2: [96 %-100 %] I/O: No intake/output data recorded. Neuro Exam: MS: Intubated and sedated on propofol 50mcg/kg/min Not arousable to deep noxious stimuli CN: PERRLA, corneal reflex intact, no VOR, no cough, no apparent facial asymmetry Sensorimotor: Spontaneous movements in bilateral UE but not in LE. Withdrew to nailbed pressure in all 4. Reflexes: Toes downgoing bilaterally Coordination: No abnormal involuntary movement at rest Gait: Deferred Labs: Recent Results (from the past 24 hour(s)) BLOOD GAS 2 VENOUS Result Value Ref Range pH Rafael 7.09 (CRIT) 7.32 - 7.42 pCO2 Rafael 66 (CRIT) 41 - 51 mmHg pO2 Rafael 31 25 - 40 mmHg HCO3 Rafael 19.7 mmol/L BE Rafael -10.1 mmol/L Hgb Blood Gas 13.6 11.7 - 15.5 g/dL O2HB Rafael 40.0 % COHB Rafael 1.8 % METHB Rafael 0.5 <=1.5 % Na Whole Blood 142 135 - 145 mmol/L K Whole Blood 4.5 3.5 - 5.0 mmol/L ICa Whole Blood 1.25 1.15 - 1.33 mmol/L CL Whole Blood 102 98 - 107 mmol/L Gluc Whole Bld 189 65 - 199 mg/dL Lactate WB 6.5 (CRIT) 0.5 - 2.2 mmol/L BGas Source Venous Comprehensive metabolic panel (non-fasting) Result Value Ref Range Glucose Lvl 196 65 - 199 mg/dL BUN 20 (H) 8 - 18 mg/dL Creatinine 1.55 (H) 0.70 - 1.20 mg/dL Sodium 140 135 - 145 mmol/L Potassium 5.1 (H) 3.5 - 5.0 mmol/L Chloride 104 98 - 107 mmol/L CO2 19 (L) 22 - 31 mmol/L Anion Gap 17 (H) 5 - 15 mmol/L Calcium 9.4 8.5 - 10.5 mg/dL Total Protein 6.8 6.1 - 8.0 g/dL Albumin 4.4 3.2 - 5.2 g/dL AST 72 (H) 0 - 30 unit/L ALT 79 (H) 0 - 30 unit/L Alk Phos 88 35 - 105 unit/L Total Bilirubin 0.2 0.2 - 1.3 mg/dL Estimated GFR 42 (L) >=60 mL/min/1.73 m?? Troponin Result Value Ref Range Troponin-T 0.02 (H) 0.00 - 0.00 ng/mL Magnesium Result Value Ref Range Magnesium 1.04 0.69 - 1.07 mmol/L Phosphorus Result Value Ref Range Phosphorus 6.2 (H) 2.5 - 4.5 mg/dL Acetaminophen level Result Value Ref Range Acetamin Lvl <5 (L) 10 - 30 mg/L Salicylate Result Value Ref Range Salicylate Lvl <3 mg/L Ethanol Level Result Value Ref Range Ethanol Lvl <100 <=99 mg/L COVID-19 PCR Specimen: Nasopharyngeal Swab Symptoms->COVID-19 Suspected Result Value Ref Range SARS-CoV-2 RNA PCR Not Detected Not Detected SARS-CoV-2 Source [employer] Swab Hemogram Result Value Ref Range WBC 25.6 (H) 4.0 - 9.5 x10(3)/mcL RBC 4.96 4.00 - 5.21 x10(6)/mcL Hemoglobin 12.9 11.7 - 15.5 g/dL Hematocrit 43.1 35.7 - 45.8 % MCV 86.9 82.6 - 94.4 fL MCH 26.0 (L) 27.1 - 32.0 pg MCHC 29.9 (L) 31.7 - 35.0 g/dL Platelets 298 145 - 357 x10(3)/mcL RDWSD 51.5 (H) 37.0 - 46.0 fL RDWCV 16.5 (H) 11.5 - 14.1 % MPV 11.5 7.6 - 12.9 fL nRBC % Auto 0.0 % nRBC Abs Auto 0.000 0.000 - 0.000 x10(3)/mcL Differential, Automated Result Value Ref Range Neutrophils % 72.9 % Neutr Abs (ANC) 18.66 (H) 1.70 - 6.10 x10(3)/mcL Lymphocytes % 19.3 % Lymphocytes Abs 4.9 (H) 0.9 - 3.2 x10(3)/mcL Monocytes % 4.2 % Monocyte Abs 1.1 (H) 0.3 - 0.9 x10(3)/mcL Eosinophils % 1.9 % Eosinophils Abs 0.5 (H) 0.0 - 0.4 x10(3)/mcL Basophils % 0.5 % Basophils Abs 0.1 0.0 - 0.1 x10(3)/mcL Immature Gran % 1.20 % Jena Gran Abs 0.30 (H) 0.00 - 0.04 x10(3)/mcL Blue Tube HOLD Result Value Ref Range Blue Hold Sample in lab. Gold Tube HOLD Result Value Ref Range Gold Hold Sample in lab. D-Dimer, Quantitative Result Value Ref Range D-Dimer, Quant 5,001 (H) 0 - 500 FEU ng/ml Osmolality Result Value Ref Range Osmolality 306 (H) 275 - 295 mOsm/kg Scan, Peripheral Blood Result Value Ref Range Plat Estimate Normal RBC Morphology Abnormal Hypochromia Slight Triglyceride Result Value Ref Range Triglycerides 130 mg/dL CK Result Value Ref Range CK, Total 135 0 - 160 unit/L Rapid Drug Screen, Urine (DAVID Request) Result Value Ref Range DAVID Conf Requested No DAVID Requested See Comment POCT urine Result Value Ref Range POC Urine HCG Negative Negative - Negative POC Control Internal Controls Acceptable Urinalysis with reflex Culture Specimen: Indwelling Catheter Urine Result Value Ref Range Glucose UA Negative Negative mg/dL Protein UA 100 (A) Negative mg/dL Bilirubin UA Negative Negative mg/dL Urobilinogen UA Normal Normal mg/dL pH UA 6.5 5.0 - 8.0 Blood UA Trace (A) Negative mg/dL Ketones UA Negative Negative mg/dL Nitrite UA Negative Negative Leukocytes UA Negative Negative mcL Appearance UA Clear Clear Spec Hughson UA 1.020 1.005 - 1.030 Color UA Yellow Yellow Culture Reflexed No Rapid Drug Screen w/o Confirmation, Urine Result Value Ref Range U Barbiturates Screen None Detected None Detected U Benzodiazepines Screen Presumptive Pos (A) None Detected U Cocaine Screen None Detected None Detected U Methadone Metabolites Screen None Detected None Detected U Opiate Screen None Detected None Detected U Cannabinoid Screen None Detected None Detected U Oxycodone Screen None Detected None Detected U Buprenorphine Screen None Detected None Detected U Fentanyl Screen None Detected None Detected U Tricyclics Screen None Detected None Detected U Ethanol Screen None Detected None Detected U Amphetamines Screen None Detected None Detected U Adulterants Screen None Detected None Detected Urinalysis Microscopic Exam Result Value Ref Range RBC UA 1 0 - 4 /HPF WBC UA 2 0 - 5 /HPF Squam Epith UA 4 <=4 /HPF Hyaline Cast UA 7 (H) 0 - 2 /LPF BLOOD GAS 2 ARTERIAL Result Value Ref Range pH Art 7.23 (CRIT) 7.35 - 7.45 pCO2 Art 44 35 - 45 mmHg pO2 Art 199 (H) 85 - 104 mmHg HCO3 Art 18.1 (L) 20.0 - 26.0 mmol/L BE Art -9.4 (L) -3.0 - 3.0 mmol/L Hgb Blood Gas 11.8 11.7 - 15.5 g/dL O2HB Art 97.3 (H) 94.0 - 97.0 % COHB Art 0.3 % METHB Art 0.6 <=1.5 % Na Whole Blood 139 135 - 145 mmol/L K Whole Blood 4.0 3.5 - 5.0 mmol/L ICa Whole Blood 1.11 (L) 1.15 - 1.33 mmol/L CL Whole Blood 108 (H) 98 - 107 mmol/L Gluc Whole Bld 128 65 - 199 mg/dL Lactate WB 2.2 0.5 - 2.2 mmol/L BLOOD GAS 2 ARTERIAL Result Value Ref Range pH Art 7.36 7.35 - 7.45 pCO2 Art 37 35 - 45 mmHg pO2 Art 187 (H) 85 - 104 mmHg HCO3 Art 20.4 20.0 - 26.0 mmol/L BE Art -5.1 (L) -3.0 - 3.0 mmol/L Hgb Blood Gas 12.0 11.7 - 15.5 g/dL O2HB Art 97.4 (H) 94.0 - 97.0 % COHB Art 0.3 % METHB Art 0.5 <=1.5 % Na Whole Blood 138 135 - 145 mmol/L K Whole Blood 5.0 3.5 - 5.0 mmol/L ICa Whole Blood 1.12 (L) 1.15 - 1.33 mmol/L CL Whole Blood 107 98 - 107 mmol/L Gluc Whole Bld 92 65 - 199 mg/dL Lactate WB 1.1 0.5 - 2.2 mmol/L Troponin Result Value Ref Range Troponin-T 0.24 (H) 0.00 - 0.00 ng/mL POCT Glucose Result Value Ref Range POC Glucose 94 65 - 199 mg/dL Hemogram Result Value Ref Range WBC 16.8 (H) 4.0 - 9.5 x10(3)/mcL RBC 4.23 4.00 - 5.21 x10(6)/mcL Hemoglobin 11.0 (L) 11.7 - 15.5 g/dL Hematocrit 34.9 (L) 35.7 - 45.8 % MCV 82.5 (L) 82.6 - 94.4 fL MCH 26.0 (L) 27.1 - 32.0 pg MCHC 31.5 (L) 31.7 - 35.0 g/dL Platelets 230 145 - 357 x10(3)/mcL RDWSD 49.1 (H) 37.0 - 46.0 fL RDWCV 16.6 (H) 11.5 - 14.1 % MPV 11.9 7.6 - 12.9 fL nRBC % Auto 0.0 % nRBC Abs Auto 0.000 0.000 - 0.000 x10(3)/mcL Differential, Automated Result Value Ref Range Neutrophils % 80.8 % Neutr Abs (ANC) 13.58 (H) 1.70 - 6.10 x10(3)/mcL Lymphocytes % 12.3 % Lymphocytes Abs 2.1 0.9 - 3.2 x10(3)/mcL Monocytes % 6.0 % Monocyte Abs 1.0 (H) 0.3 - 0.9 x10(3)/mcL Eosinophils % 0.2 % Eosinophils Abs 0.0 0.0 - 0.4 x10(3)/mcL Basophils % 0.2 % Basophils Abs 0.0 0.0 - 0.1 x10(3)/mcL Immature Gran % 0.50 % Jena Gran Abs 0.08 (H) 0.00 - 0.04 x10(3)/mcL Diagnostic Tests and Imaging: No results found for this visit on 11/04/21. Assessment: Aniya Lundy is a 36 y.o. female with PMHx of depression and anxiety who presented with cardiacarrest. Neurology is being consulted for concern of seizure. Patient has had VF cardiac arrest of unclear aetiology, including another one at 3pm while inpatient. She had one episode of posturing where her bilateral arms were forcibly flexed. Aetiology of this episode of posturing is unclear, though seizure is certainly a possibility given most likely hypoxic brain injury. Will start cvEEG monitoring as patient undergoes TTM to 36C for cardiac arrest. Hold on AED for now. Recommendations: - cvEEG monitoring (order placed) Patient discussed with Dr. Zhu. Jhony Regan, DO Neurology, PGY-3 Consult Neurology Service #[id number] 11/04/2021 Associated attestation - Barry Zhu Jr., MD - 11/05/2021 9:38 AM EST I discussed the case and agree with the plan, but did not personally examine the patient. I have reviewed the EEG and see no epileptiform patterns or features. Barry Zhu Jr, MD * ED Triage - Gabriela Astorga RN - 11/04/2021 7:23 AM EST Patient arrives via EMS post Vfib arrest. 10 mins bystander CPR by boyfriend, followed by 2 mins CPR by EMS upon arrival. EMS shocked x1 and 2 round Epi given. ROSC obtained. Patient non-verbal. Respiratory rate regular and unlabored. Skin appropriate color, warm, and dry. HPI (Adult) Stated Reason for Visit: Post cardiac arrest History Obtained From: EMS Precipitating Event(s): unknown Medications/Treatments Administered by EMS Prior to Presentation: ACLS protocol medications,assisted ventilation,defibrillation,oxygen,see EMS record Medications/Treatments Prior to Arrival: none Additional Details: Shocked x1; then ROSC documented in this encounter Plan of Treatment Upcoming Encounters Date Type Department Care Team (Late st Contact Info) Description 09/21/2024 8:15 AM EST Routine Obstetrics [place] [address] Emili Cabrera MD [facility] [address] MATERNAL [place] [address] 09/26/2024 6:00 PM EST Appointment [facility] [place] [address] 10/16/2024 Hospital En[place] [address] Dudley Aguilar MD [facility] [address] OBSTETRICS [place] [address] 11/08/2024 10:00 AM EST Hospital Encounter Non-Invasive [place] [address] Arrived Pending Results Name Type Priority Associated Diagnoses Date /Time EKG 12 Lead ECG STAT 11/04/2021 7: 37 AM EST Scheduled Orders Name Type Priority Associated Diagnoses Orde r Schedule BEDSIDE TRANSCRANIAL DOPPLER Neurology Routine One Time for 1 Occurrences starting 11/05/2021 until 11/05/2021 documented as of this encounter Procedures Procedure Name Priority Date/Time Associated Diagnosis Comments EKG 12-LEAD Routine 11/14/2021 1:23 PM EST Chest pain, unspecified type HEMOGRAM Routine 11/14/2021 4:28 AM EST DIFFERENTIAL, AUTOMATED Routine 11/14/19 4:28 AM EST HC VENIPUNCTURE Routine 11/14/2021 4:28 AM EST HC MAGNESIUM, SERUM Routine 11/14/2021 4 :28 AM EST BASIC METABOLIC PANEL Routine 11/14/2021 4:28 AM EST XR CHEST PA AND LATERAL Routine 11/13/19 6:56 AM EST HEMOGRAM Routine 11/13/2021 4:30 AM EST DIFFERENTIAL, AUTOMATED Routine 11/13/19 4:30 AM EST HC VENIPUNCTURE Routine 11/13/2021 4:30 AM EST HC MAGNESIUM, SERUM Routine 11/13/2021 4 :30 AM EST BASIC METABOLIC PANEL Routine 11/13/2021 4:30 AM EST ELECTROPHYSIOLOGY PROCEDURE Routine 11/12/2021 3:30 PM EST XR CHEST PA AND LATERAL Routine 11/12/19 6:59 AM EST HEMOGRAM Routine 11/12/2021 4:48 AM EST DIFFERENTIAL, AUTOMATED Routine 11/12/19 4:48 AM EST HC CBC,PLT & AUTO DIFF Routine 4:48 AM EST BASIC METABOLIC PANEL Routine 11/12/2021 4:48 AM EST HC MAGNESIUM, SERUM Routine 11/11/2021 6 :41 PM EST HEMOGRAM Routine 11/11/2021 4:42 AM EST DIFFERENTIAL, AUTOMATED Routine 11/11/19 4:42 AM EST HC VENIPUNCTURE Routine 11/11/2021 4:42 AM EST MAGNESIUM Routine 11/11/2021 4:42 AM EST BASIC METABOLIC PANEL Routine 11/11/2021 4:42 AM EST HC MAGNESIUM, SERUM Routine 11/10/2021 6 :07 PM EST HC MAGNESIUM, SERUM Routine 11/10/2021 1 0:06 AM EST EKG 12-LEAD STAT 11/10/2021 7:54 AM EST Cardiac arrest HC MAGNESIUM, SERUM Routine 11/09/2021 6 :24 PM EST SCAN, PERIPHERAL BLOOD Routine 12:40 AM EST HEMOGRAM Routine 11/09/2021 12:40 AM EST DIFFERENTIAL, AUTOMATED Routine 11/09/19 12:40 AM EST HC CBC,PLT & AUTO DIFF Routine 12:40 AM EST HC MAGNESIUM, SERUM Routine 11/09/2021 1 2:40 AM EST BASIC METABOLIC PANEL Routine 11/09/2021 12:40 AM EST HC MAGNESIUM, SERUM Routine 11/08/2021 7 :05 PM EST [employer] MANAGER ELECTRODE PRFM Routine 11/08/19 1:47 PM EST HC MRSA DETECTION BY PCR Routine 022 10:10 AM EST SCAN, PERIPHERAL BLOOD Routine 4:30 AM EST HEMOGRAM Routine 11/08/2021 4:30 AM EST DIFFERENTIAL, AUTOMATED Routine 11/08/19 4:30 AM EST HC CBC,PLT & AUTO DIFF Routine 4:30 AM EST MAGNESIUM Routine 11/08/2021 4:30 AM EST BASIC METABOLIC PANEL Routine 11/08/2021 4:30 AM EST HC VANCOMYCIN Timed 11/07/2021 9:29 PM EST EXTUBATE Routine 11/07/2021 4:42 PM EST XR ABDOMEN 1 VIEW Routine 11/07/2021 11: 25 AM EST BLOOD GAS ARTERIAL POC Routine 2 9:40 AM EST XR CHEST ONE VIEW Routine 11/07/2021 9:1 6 AM EST HC MAGNESIUM, SERUM Routine 11/07/2021 8 :00 AM EST HC VANCOMYCIN Timed 11/07/2021 8:00 AM EST BLOOD GAS ARTERIAL POC Routine 2 6:30 AM EST BLOOD GAS ARTERIAL POC Routine 2 2:07 AM EST SCAN, PERIPHERAL BLOOD Routine 12:30 AM EST HEMOGRAM Routine 11/07/2021 12:30 AM EST DIFFERENTIAL, AUTOMATED Routine 11/07/19 12:30 AM EST HC CBC,PLT & AUTO DIFF Routine 2 12:30 AM EST BASIC METABOLIC PANEL Routine 11/07/2021 12:30 AM EST BLOOD GAS ARTERIAL POC Routine 8:44 PM EST HC MAGNESIUM, SERUM Routine 11/06/2021 8 :30 PM EST HC BLOOD CULTURE- STAT 11/06/2021 8:0 0 PM EST HC BLOOD CULTURE- STAT 11/06/2021 6:4 7 PM EST XR CHEST ONE VIEW Routine 11/06/2021 6:3 9 PM EST BLOOD GAS ARTERIAL POC Routine 2 5:59 PM EST BLOOD GAS ARTERIAL POC Routine 2 2:33 PM EST HC SPUTUM CULTURE Routine 11/06/2021 12: 20 PM EST BLOOD GAS ARTERIAL POC Routine 2 7:46 AM EST XR CHEST ONE VIEW Routine 11/06/2021 6:3 6 AM EST BLOOD GAS ARTERIAL POC Routine 2 4:28 AM EST HC UNFRACTIONATED HEPARIN (HEP UFH) STAT 11/06/2021 4:25 AM EST SCAN, PERIPHERAL BLOOD Routine 2 4:25 AM EST HEMOGRAM Routine 11/06/2021 4:25 AM EST DIFFERENTIAL, AUTOMATED Routine 11/06/19 22 4:25 AM EST HC PROTHROMBIN TIME Routine 11/06/2021 4 :25 AM EST HC CBC,PLT & AUTO DIFF Routine 2 4:25 AM EST HEPATIC FUNCTION PANEL Routine 2 4:25 AM EST BASIC METABOLIC PANEL Routine 11/06/2021 4:25 AM EST BLOOD GAS ARTERIAL POC Routine 2 4:53 PM EST EKG 12-LEAD STAT 11/05/2021 4:01 PM EST Cardiac arrest BLOOD GAS ARTERIAL POC Routine 2 2:06 PM EST HC MAGNESIUM, SERUM Timed 11/05/2021 2 :06 PM EST BASIC METABOLIC PANEL Timed 11/05/2021 2:06 PM EST PRG DUPLEX SCAN EXTRACRANIAL ART; COMPLETE BILAT STUDY Routine 11/05/2021 2:02 PM EST Cardiac arrest Coronary artery vasospasm EKG 12-LEAD STAT 11/05/2021 8:59 AM EST Cardiac arrest XR CHEST ONE VIEW Routine 11/05/2021 8:4 0 AM EST BLOOD GAS ARTERIAL POC Routine 8:05 AM EST CRP, ACUTE INFLAMMATION STAT 11/05/19 6:27 AM EST HC UNFRACTIONATED HEPARIN (HEP UFH) STAT 11/05/2021 6:27 AM EST HC TROPONIN T STAT 11/05/2021 6:27 AM EST HC UNFRACTIONATED HEPARIN (HEP UFH) STAT 11/05/2021 1:08 AM EST HEMOGRAM Routine 11/05/2021 1:08 AM EST DIFFERENTIAL, AUTOMATED Routine 11/05/19 1:08 AM EST SEDIMENTATION RATE Routine 11/05/2021 1: 08 AM EST HC CBC,PLT & AUTO DIFF Routine 1:08 AM EST HC TROPONIN T STAT 11/05/2021 1:08 AM EST HC PHOSPHORUS, SERUM Routine 11/05/2021 1:08 AM EST HC MAGNESIUM, SERUM Routine 11/05/2021 1 :08 AM EST BASIC METABOLIC PANEL Routine 11/05/2021 1:08 AM EST BLOOD GAS ARTERIAL POC Routine 1:07 AM EST HC BLOOD CULTURE- STAT 11/04/2021 10: 50 PM EST HC BLOOD CULTURE- STAT 11/04/2021 10: 15 PM EST HC PCH EXTRACTABLE NUCLEAR ANTIGEN Routine 11/04/2021 8:58 PM EST BLOOD GAS ARTERIAL POC Routine 8:58 PM EST GREEN TUBE HOLD Routine 11/04/2021 8:58 PM EST HC PCH ANATITRE (ANDPATTERN) Routine 11/04/2021 8:58 PM EST XR CHEST ONE VIEW STAT 11/04/2021 8:2 2 PM EST CARDIAC CATHETERIZATION Routine 11/04/19 6:30 PM EST POINT OF CARE BLOOD GAS HISTORICAL Routine 11/04/2021 5:57 PM EST HEMOGRAM Routine 11/04/2021 3:30 PM EST DIFFERENTIAL, AUTOMATED Routine 11/04/19 3:30 PM EST HC CBC,PLT & AUTO DIFF Routine 3:30 PM EST EKG 12-LEAD STAT 11/04/2021 3:23 PM EST Cardiac arrest POCT GLUCOSE Routine 11/04/2021 2:54 PM EST HC TROPONIN T STAT 11/04/2021 1:00 PM EST BLOOD GAS ARTERIAL POC Routine 12:57 PM EST ECHO LMTD W/O CONTRAST W LMTD SPEC DOPP COLOR DOPP Routine 11/04/2021 12:12 PM EST Cardiac arrest [id number] ONLY Routine 11/04/2021 10:51 AM EST INSERT ARTERIAL LINE - ED ONLY Routine 11/04/2021 10:42 AM EST XR CHEST ONE VIEW STAT 11/04/2021 10: 09 AM EST XR ABDOMEN 1 VIEW STAT 11/04/2021 10: [address] CHEST PULMONARY EMBOLISM W CONTRAST STAT 11/04/2021 9:[address] HEAD WO CONTRAST (GENERIC) STAT 11/04/2021 9:37 AM EST BLOOD GAS ARTERIAL POC Routine 8:43 AM EST URINALYSIS MICROSCOPIC EXAM STAT 11/04/2021 8:40 AM EST RAPID DRUG SCREEN, URINE STAT 022 8:40 AM EST RAPID DRUG SCREEN W/O CONFIRMATION, URINE STAT 11/04/2021 8:40 AM EST URINALYSIS WITH REFLEX CULTURE STAT 11/04/2021 8:40 AM EST POCT URINE STAT 11/04/2021 8:40 AM EST EKG 12-LEAD Routine 11/04/2021 7:37 AM EST EKG 12-LEAD STAT 11/04/2021 7:37 AM EST RAPID COVID-19 PCR ([facility]) STAT 11/04/2021 7:35 AM EST SCAN, PERIPHERAL BLOOD STAT 7:35 AM EST HEMOGRAM STAT 11/04/2021 7:35 AM EST DIFFERENTIAL, AUTOMATED STAT 11/04/19 7:35 AM EST D-DIMER, QUANTITATIVE STAT 11/04/2021 7:35 AM EST GOLD TUBE HOLD STAT 11/04/2021 7:35 AM EST BLUE TUBE HOLD STAT 11/04/2021 7:35 AM EST HC CBC,PLT & AUTO DIFF STAT 7:35 AM EST HC TROPONIN T STAT 11/04/2021 7:35 AM EST TRIGLYCERIDE STAT 11/04/2021 7:35 AM EST HC PHOSPHORUS, SERUM STAT 11/04/2021 7:35 AM EST OSMOLALITY STAT 11/04/2021 7:35 AM EST HC MAGNESIUM, SERUM STAT 11/04/2021 7 :35 AM EST CK STAT 11/04/2021 7:35 AM EST HC ALCOHOL, BLOOD STAT 11/04/2021 7:3 5 AM EST HC ACETAMINOPHEN, SERUM STAT 11/04/19 22 7:35 AM EST HC SALICYLATES, SERUM STAT 11/04/2021 7:35 AM EST COMPREHENSIVE METABOLIC PANEL STAT 11/04/2021 7:35 AM EST BLOOD GAS VENOUS POC Routine 11/04/2021 7:33 AM EST US CARDIAC (SYNC) Routine 11/04/2021 7:2 5 AM EST documented in this encounter Results * EKG 12 Lead (11/14/2021 1:23 PM EST) Ventricular rate 71 BPM MUSE SYSTEM Atrial Rate 71 BPM MUSE SYSTEM P-R Interval 124 ms MUSE SYSTEM QRS Duration 94 ms MUSE SYSTEM Q-T Interval 410 ms MUSE SYSTEM QTC Calculated (Bezet) 445 ms MUSE SYSTEM Calculated P [place] 25 degrees MUSE SYSTEM Calculated R [place] 23 degrees MUSE SYSTEM Calculated T [place] 21 degrees MUSE SYSTEM INTERPRETATION Normal sinus rhythm Incomplete right bundle branch block Minimal voltage criteria for LVH, may be normal variant ( Vince product ) Borderline ECG When compared with ECG of 10-NOV-2021 07:54, T wave inversion less evident in Anterior leads Confirmed by MD REGINALD, FRANCES ([id number]) on 11/14/2021 1:57:43 PM MUSE SYSTEM 11/14/2021 1:23 PM EST 11/14/2021 1:57 PM EST Neeraj Pompa MD ECG ORDERABLES MUSE SYSTEM * (ABNORMAL) Differential, Automated (11/14/2021 4:28 AM EST) Neutrophil % 55.1 % [facility] Neutrophil Absolute 7.45(H) 1.70 - 6.10 x10(3)/mc L [facility] Lymph % 30.8 % [facility] Lymphocytes Abs 4.2(H) 0.9 - 3.2 x10(3)/mc L [facility] Monocyte % 6.6 % [facility] Monocyte Abs 0.9 0.3 - 0.9 x10(3)/mc L [facility] Eos % 4.9 % [facility] Eosinophils Abs 0.7(H) 0.0 - 0.4 x10(3)/mc L [facility] Basophil % 0.8 % [facility] Baso Absolute 0.1 0.0 - 0.1 x10(3)/mc L [facility] Immature Gran % 1.80 % [facility] Comment: Immature granulocytes(IG's)percentage and absolute count will include metamyelocytes, myelocytes, and promyelocytes. Blood smears from CBCs yielding IG's will be scanned manually for concordance. If this scan disagrees with the automated IG or if promyelocytes are noted, a manual differential will be performed. Immature Gran Absolute 0.24(H) 0.00 - 0.04 x10(3)/mc L [facility] Blood 11/14/2021 4:28 AM EST 11/14/2021 5:18 AM EST Narrative Resulting Agency Comment Spec In Lab Uday Alves MD HEMATOLOGY ORDERABLE S [facility] [place] [address] * (ABNORMAL) Hemogram (11/14/2021 4:28 AM EST) White Blood Cell 13.5(H) 4.0 - 9.5 x10(3)/mc L [facility] Red Blood Cell 3.56(L) 4.00 - 5.21 x10(6)/mc L [facility] Hemoglobin 9.4(L) 11.7 - 15.5 g/dL [facility] Hematocrit 29.5(L) 35.7 - 45.8 % [facility] Mean Cell Volume 82.9 82.6 - 94.4 fL [facility] Mean Cell Hemoglobin 26.4(L) 27.1 - 32.0 pg [facility] Mean Cell Hemoglobin Concentration 31.9 31.7 - 35.0 g/dL [facility] Platelet 446(H) 145 - 357 x10(3)/mc L [facility] RDW Standard Deviation 50.4(H) 37.0 - 46.0 fL [facility] RDW coefficient of variation 17.3(H) 11.5 - 14.1 % [facility] Mean Platelet Volume 10.7 7.6 - 12.9 fL [facility] NRBC% auto 0.0 % [facility] NRBC Absolute 0.000 0.000 - 0.000 x10(3)/mc L [facility] Blood 11/14/2021 4:28 AM EST 11/14/2021 5:18 AM EST Narrative Resulting Agency Comment Spec In Lab Uday Alves MD HEMATOLOGY ORDERABLE S Performing Organization Address [facility] Co de Phone Number [facility] [place] [address] * Magnesium (11/14/2021 4:28 AM EST) Magnesium 0.80 0.69 - 1.07 mmol/L [facility] Blood 11/14/2021 4:28 AM EST 11/14/2021 5:18 AM EST Narrative Resulting Agency Comment Spec In Lab Neeraj Pompa MD CHEMISTRY ORDERABLES Performing Organization Address [facility] de Phone Number [facility] [place] [address] * (ABNORMAL) Basic Metabolic Panel (non-fasting) (11/14/2021 4:28 AM EST) Glucose 84 65 - 199 mg/dL [facility] Comment:Diabetes: >=200 mg/d L plus symptoms Blood Urea Nitrogen 27(H) 8 - 18 mg/dL [facility] Creatinine 0.92 0.70 - 1.20 mg/dL [facility] Sodium 137 135 - 145 mmol/L [facility] Potassium 4.3 3.5 - 5.0 mmol/L [facility] Comment: Please note: ??Patients with WBC >100,000 may have falsely elevated Potassium levels. ??For accurate Potassium quantification in these patients send serum separator tube (gold top) for subsequent determinations. ??Contact the Clinical Chemistry Laboratory if there are any questions. Chloride 106 98 - 107 mmol/L [facility] Carbon Dioxide 21(L) 22 - 31 mmol/L [facility] Anion Gap 10 5 - 15 mmol/L [facility] Calcium 8.5 8.5 - 10.5 mg/dL [facility] Est Glomerular Filtration Rate 80 >=60 mL/min/1. 73 m?? [facility] Comment: This patient? s estimated glomerular filtration rate (eGFR) is between 80 mL/min/1.73 m2 (patients with less muscle mass) and 92 mL/min/1.73 m2 (patients with more muscle mass) [...] and symptoms in addition to eGFR. Blood 11/14/2021 4:28 AM EST 11/14/2021 5:18 AM EST Narrative Resulting Agency Comment Spec In Lab Yohannes Dhillon MD CHEMISTRY ORDERABLES [facility] [place] [address] * XR Chest PA & Lateral (Generic) (11/13/2021 6:56 AM EST) Anatomical Region Laterality Modality Chest N/A Digital Radiogra phy Impressions 11/13/2021 8:08 AM EST Interval placement of single lead ICD without radiographic finding of complication. Persistent findings of mild pulmonary vasculature congestion. Thank you for letting us participate in the care of this patient. ??If you are a health care provider and have any questions regarding this report, please contact the number below. ??For patients who have questions please contact the health home day care provider that requested your imaging first. ? Narrative 11/13/2021 8:08 AM EST EXAMINATION: XR CHEST PA AND LATERAL (GENERIC) CLINICAL HISTORY: s/p subcutaneous ICD TECHNIQUE: PA and lateral views of the chest COMPARISON: Chest radiographs December 31, 2020; November 06November 07 and November 12, 2021 FINDINGS: Interval placement of left lateral chest wall pulse generator with single, intact anterior lead. Lungs are clear without pleural effusion or pneumothorax. Cardiac silhouette remains mildly enlarged with prominent pulmonary vasculature. No free air below the diaphragm or focal extrathoracic soft tissue abnormality. No fracture. Procedure Note Monie Becerril MD - 11/13/2021 EXAMINATION: XR CHEST PA AND LATERAL (GENERIC) CLINICAL HISTORY: s/p subcutaneous ICD TECHNIQUE: PA and lateral views of the chest COMPARISON: Chest radiographs December 31, 2020; November 06November 07 and October FINDINGS: Interval placement of left lateral chest wall pulse generator withsingle, intact anterior lead. Lungs are clear without pleural effusion or pneumothorax. Cardiac silhouette remains mildly enlarged with prominent pulmonaryvasculature. No free air below the diaphragm or focal extrathoracic soft tissueabnormality. No fracture. IMPRESSION Interval placement of single lead ICD without radiographic finding of complication. Persistent findings of mild pulmonary vasculaturecongestion. Thank you for letting us participate in the care of this patient. If youare a health care provider and have any questions regarding this report,please contact the number below. For patients who have questions please contactthe health home day care provider that requested your imaging first. Neeraj Pompa MD IMG DX ORDERABLES * (ABNORMAL) Differential, Automated (11/13/2021 4:30 AM EST) [facility] Neutrophil % 85.2 % [facility] Neutrophil Absolute 14.55(H) 1.70 - 6.10 x10(3)/ L [facility] Lymph % 10.1 % [facility] Lymphocytes Abs 1.7 0.9 - 3.2 x10(3)/ L [facility] Monocyte % 3.2 % [facility] Monocyte Abs 0.6 0.3 - 0.9 x10(3)/ L [facility] Eos % 0.1 % [facility] Eosinophils Abs 0.0 0.0 - 0.4 x10(3)/[facility] Basophil % 0.2 % [facility] Baso Absolute 0.0 0.0 - 0.1 x10(3)/[facility] Immature Gran % 1.20 % [facility] Comment: Immature granulocytes(IG's)percentage and absolute count will include metamyelocytes, myelocytes, and promyelocytes. Blood smears from CBCs yielding IG's will be scanned manually for concordance. If this scan disagrees with the automated IG or if promyelocytes are noted, a manual differential will be performed. Immature Gran Absolute 0.20(H) 0.00 - 0.04 x10(3)/ L [facility] Blood 11/13/2021 4:30 AM EST 11/13/2021 4:36 AM EST Narrative Resulting Agency Comment Spec In Lab Uday Alves MD HEMATOLOGY ORDERABLE S [facility] [place] [address] * (ABNORMAL) Hemogram (11/13/2021 4:30 AM EST) [facility] White Blood Cell 17.1(H) 4.0 - 9.5 x10(3)/ L [facility] Red Blood Cell 3.59(L) 4.00 - 5.21 x10(6)/mc L [facility] Hemoglobin 9.5(L) 11.7 - 15.5 g/dL [facility] Hematocrit 29.3(L) 35.7 - 45.8 % [facility] Mean Cell Volume 81.6(L) 82.6 - 94.4 fL [facility] Mean Cell Hemoglobin 26.5(L) 27.1 - 32.0 pg [facility] Mean Cell Hemoglobin Concentration 32.4 31.7 - 35.0 g/dL [facility] Platelet 399(H) 145 - 357 x10(3)/mc L [facility] RDW Standard Deviation 47.8(H) 37.0 - 46.0 [facility] RDW coefficient of variation 16.4(H) 11.5 - 14.1 % [facility] Mean Platelet Volume 10.3 7.6 - 12.9 [facility] NRBC% auto 0.0 % [facility] NRBC Absolute 0.000 0.000 - 0.000 x10(3)/mc L [facility] Blood 11/13/2021 4:30 AM EST 11/13/2021 4:36 AM EST Narrative Resulting Agency Comment Spec In Lab Uday Alves MD HEMATOLOGY ORDERABLE S Performing Organization Address City/[facility]/ZIP Co de Phone Number [facility] [place] [address] * Magnesium (11/13/2021 4:30 AM EST) Magnesium 0.84 0.69 - 1.07 mmol/L [facility] Blood 11/13/2021 4:30 AM EST 11/13/2021 4:36 AM EST Narrative Resulting Agency Comment Spec In Lab Neeraj Pompa MD CHEMISTRY ORDERABLES [facility] [place] [address] * (ABNORMAL) Basic Metabolic Panel (non-fasting) (11/13/2021 4:30 AM EST) Glucose 150 65 - 199 mg/dL [facility] Comment:Diabetes: >=200 mg/d L plus symptoms Blood Urea Nitrogen 21(H) 8 - 18 mg/dL [facility] Creatinine 0.89 0.70 - 1.20 mg/dL [facility] Sodium 138 135 - 145 mmol/L [facility] Potassium 4.3 3.5 - 5.0 mmol/L [facility] Comment: Please note: ??Patients with WBC >100,000 may have falsely elevated Potassium levels. ??For accurate Potassium quantification in these patients send serum separator tube (gold top) for subsequent determinations. ??Contact the Clinical Chemistry Laboratory if there are any questions. Chloride 108(H) 98 - 107 mmol/L [facility] Carbon Dioxide 20(L) 22 - 31 mmol/L [facility] Anion Gap 10 5 - 15 mmol/L [facility] Calcium 8.7 8.5 - 10.5 mg/dL [facility] Est Glomerular Filtration Rate 83 >=60 mL/min/1. 73 m?? [facility] Comment: This patient? s estimated glomerular filtration rate (eGFR) is between 83 mL/min/1.73 m2 (patients with less muscle mass) and 96 mL/min/1.73 m2 (patients with more muscle mass) [...] and symptoms in addition to eGFR. Blood 11/13/2021 4:30 AM EST 11/13/2021 4:36 AM EST Narrative Resulting Agency Comment Spec In Lab Yohannes Dhillon MD CHEMISTRY ORDERABLES [facility] [place] [address] * ELECTROPHYSIOLOGY PROCEDURE (11/12/2021 3:30 PM EST) Anatomical Region Laterality Modality Other Narrative 11/12/2021 3:13 PM EST Subcutaneous ICD Implantation, Intraoperative EPS, General Anesthesia Indications: Out of hospital ventricular fibrillation arrest Operators: Jolly Decker MD, ??[facility] POSADA.[facility]. Procedure: The patient was brought to the Electrophysiology Lab in the fasting state and continuous electrocardiographic monitoring was instituted. General anesthesia was administered by the anesthesia team. ?? Subcutaneous ICD screening was performed prior to starting the procedure. Pre-operative fluoroscopy was performed to evaluate and 'map' the planned device pocket location, in the mid-axillary line. The lead was also placed on the skin of the chest wall, to evaluate for the lead 'lie' alongside the sternum. After confirming the lead trajectory with fluoroscopy, skin blue were made with a permanent marker to locate the incision line in the mid-axilla and the xiphisternum. The left chest was now prepped and draped in the usual fashion, from the chin to the umbilicus, across the mid-line and to the upper arm, axilla and to the posterior axillary line, with Chloraprep. A 2:3 mixture of 2% lidocaine and 0.5% bupivicaine was instilled for local anesthesia and postoperative analgesia at the site of the left axillary line skin incision. The incision was made and the dissection was carried down to the level of the lateral chest fascia where a subcutaneous pocket was formed using blunt and sharp dissection, carefully looking for and avoiding the lateral nerve. Fluoroscopy was used briefly to locate anatomic blue for the lead position and to confirm location of the pulse generator at points during the case. A small approximately 2 cm horizontal incision was made at the level of the Xiphoid, and the tunneling tool was brought from this lower xiphoid incision to the device pocket in a horizontal fashion, carefully avoiding excessive trauma. The tunneling tool was withdrawn to the Xiphoid level incision, and the lead pulled through to this incision through the peel-away sheath which had been applied over he tunneling tool. The peel-away sheath was removed. The shorter tunneling tool was now used to introduce a peel-away sheath along the sternum, staying close to bone and directed towards the sternal notch. Fluoroscopy was briefly used to confirm the trajectory before directing the sheath. The lead was introduced via this peel-away sheath (ie a two incision technique). Two 0-silk sutures were securely applied to the posterior fascial wall and wrapped securely around the lead sleeve to secure it at the xiphisternal incision. The proximal part of the electrode was now connected to the ICD which was placed in the previously formed pocket after it was extensively flushed with neosporin-saline solution. A suture was placed to secure the device in the pocket and a single layer closure was performed prior to testing the device - air was expelled from the device pocket and from the incision before testing. Electrical testing A 10 joule test shock confirmed a system impedance of 59 ohms; full DFT testing was deferred because of recent neurological insult, with a plan to perform approximately 1 month after implant. After confirming adequate defibrillation parameters, the incisions were closed with interrupted sutures of 2-0 Monocryl, and subcuticular continuous sutures of 4-0 Monocryl. Dermabond was applied to the incisions which were covered with non adherent dressings. A 'Clozex' suture was applied. The pulse generator site was covered with a pressure dressing. Final Parameters: Ventricular electrode: SQ electrode Model 3501 Bipolar Serial Number [id number] Implanted 11/12/21 Bipolar Subcutaneous ICD Lead Pulse generator: [place] [employer] S-ICD Pulse Generator Model A219 Serial Number [id number] Implanted 11/12/21 Location: [id number], 5th to 6th intercostal space Antibiotic: 2 grams cefazolin 1350 Incision time: 1359 Estimated blood loss : 20 cc No drains in situ Fluoroscopy time: 0.1 minute, DAP 0.3 I was the operator cavity pump for the procedure, I was present for the entire procedure and wrote this report PANTERA DENTON MD Pantera Denton MD EP PROCEDURE ORDERAB LES * XR Chest PA & Lateral (Generic) (11/12/2021 6:59 AM EST) Anatomical Region Laterality Modality Chest N/A Digital Radiogra phy Impressions 11/12/2021 8:12 AM EST Resolved prior retrocardiac left lower lobe opacity. No acute cardiopulmonary pathology identified. Thank you for letting us participate in the care of this patient. ??If you are a health care provider and have any questions regarding this report, please contact the number below. ??For patients who have questions please contact the health home day care provider that requested your imaging first. ? Narrative 11/12/2021 8:12 AM EST EXAMINATION: XR CHEST PA AND LATERAL (GENERIC) CLINICAL HISTORY: progressive productive cough, pre-S-ICD implant CXR TECHNIQUE: PA and lateral views of the chest. COMPARISON: 11/07/2021. FINDINGS: Previous support and monitoring equipment have been removed. No pneumothorax or pleural effusion is seen seen. Bilateral nipple shadows are visible. Previous retrocardiac left lower lobe airspace opacity is resolved. The lungs appear clear. The cardiomediastinal silhouette, charline, and pulmonary vessel markings are within normal limits. No significant osseous findings are seen. Procedure Note Cyn Bhakta MD - 11/12/2021 EXAMINATION: XR CHEST PA AND LATERAL (GENERIC) CLINICAL HISTORY: progressive productive cough, pre-S-ICD implant CXR TECHNIQUE: PA and lateral views of the chest. COMPARISON: 11/07/2021. FINDINGS: Previous support and monitoring equipment have been removed.No pneumothorax or pleural effusion is seen seen. Bilateral nipple shadowsare visible. Previous retrocardiac left lower lobe airspace opacity isresolved. The lungs appear clear. The cardiomediastinal silhouette, charline, and pulmonaryvessel markings are within normal limits. No significant osseous findings areseen. IMPRESSION Resolved prior retrocardiac left lower lobe opacity. No acute cardiopulmonary pathology identified. Thank you for letting us participate in the care of this patient. If youare a health care provider and have any questions regarding this report,please contact the number below. For patients who have questions please contactthe health home day care provider that requested your imaging first. Devin Ricci MD IMG DX ORDERABLES * (ABNORMAL) Differential, Automated (11/12/2021 4:48 AM EST) Neutrophil % 54.9 % [facility] Neutrophil Absolute 5.80 1.70 - 6.10 x10(3)/mc L [facility] Lymph % 22.2 % [facility] Lymphocytes Abs 2.3 0.9 - 3.2 x10(3)/mc L [facility] Monocyte % 11.1 % [facility] Monocyte Abs 1.2(H) 0.3 - 0.9 x10(3)/mc L [facility] Eos % 9.8 % [facility] Eosinophils Abs 1.0(H) 0.0 - 0.4 x10(3)/mc L [facility] Basophil % 0.9 % [facility] Baso Absolute 0.1 0.0 - 0.1 x10(3)/mc L [facility] Immature Gran % 1.10 % [facility] Comment: Immature granulocytes(IG's)percentage and absolute count will include metamyelocytes, myelocytes, and promyelocytes. Blood smears from CBCs yielding IG's will be scanned manually for concordance. If this scan disagrees with the automated IG or if promyelocytes are noted, a manual differential will be performed. Immature Gran Absolute 0.12(H) 0.00 - 0.04 x10(3)/mc L [facility] Blood 11/12/2021 4:48 AM EST 11/12/2021 5:22 AM EST Narrative Resulting Agency Comment Spec In Lab Uday Alves MD HEMATOLOGY ORDERABLE S [facility] [place] [address] * (ABNORMAL) Hemogram (11/12/2021 4:48 AM EST) White Blood Cell 10.6(H) 4.0 - 9.5 x10(3)/mc [facility] Red Blood Cell 3.70(L) 4.00 - 5.21 x10(6)/mc L [facility] Hemoglobin 9.7(L) 11.7 - 15.5 g/dL [facility] Hematocrit 30.2(L) 35.7 - 45.8 % [facility] Mean Cell Volume 81.6(L) 82.6 - 94.4 fL [facility] Mean Cell Hemoglobin 26.2(L) 27.1 - 32.0 pg [facility] Mean Cell Hemoglobin Concentration 32.1 31.7 - 35.0 g/dL [facility] Platelet 343 145 - 357 x10(3)/mc L [facility] RDW Standard Deviation 47.5(H) 37.0 - 46.0 fL [facility] RDW coefficient of variation 16.2(H) 11.5 - 14.1 % [facility] Mean Platelet Volume 10.6 7.6 - 12.9 fL [facility] NRBC% auto 0.0 % [facility] NRBC Absolute 0.000 0.000 - 0.000 x10(3)/mc L [facility] Blood 11/12/2021 4:48 AM EST 11/12/2021 5:22 AM EST Narrative Resulting Agency Comment Spec In Lab Uday Alves MD HEMATOLOGY ORDERABLE S [facility] [place] [address] * (ABNORMAL) Basic Metabolic Panel (non-fasting) (11/12/2021 4:48 AM EST) Glucose 89 65 - 199 mg/dL [facility] Comment:Diabetes: >=200 mg/d L plus symptoms Blood Urea Nitrogen 17 8 - 18 mg/dL [facility] Creatinine 0.87 0.70 - 1.20 mg/dL [facility] Sodium 140 135 - 145 mmol/L [facility] Potassium 3.5 3.5 - 5.0 mmol/L [facility] Comment: Please note: ??Patients with WBC >100,000 may have falsely elevated Potassium levels. ??For accurate Potassium quantification in these patients send serum separator tube (gold top) for subsequent determinations. ??Contact the Clinical Chemistry Laboratory if there are any questions. Chloride 105 98 - 107 mmol/L [facility] Carbon Dioxide 23 22 - 31 mmol/L [facility] Anion Gap 12 5 - 15 mmol/L [facility] Calcium 8.4(L) 8.5 - 10.5 mg/dL [facility] Est Glomerular Filtration Rate 85 >=60 mL/min/1. 73 m?? [facility] Comment: This patient? s estimated glomerular filtration rate (eGFR) is between 85 mL/min/1.73 m2 (patients with less muscle mass) and 99 mL/min/1.73 m2 (patients with more muscle mass) [...] and symptoms in addition to eGFR. Blood 11/12/2021 4:48 AM EST 11/12/2021 5:21 AM EST Narrative Resulting Agency Comment Spec In Lab Yohannes Dhillon MD CHEMISTRY ORDERABLES Performing Organization Address City/[facility]/ZIP Co de Phone Number [facility] [place] [address] * Magnesium (11/11/2021 6:41 PM EST) Pathologist [facility] Magnesium 0.83 0.69 - 1.07 mmol/L [facility] Blood 11/11/2021 6:41 PM EST 11/11/2021 6:53 PM EST Narrative Resulting Agency Comment Spec In Lab Valorie Obrien MD CHEMISTRY ORDERABLES Performing Organization Address [facility] Co de Phone Number [facility] [place] [address] * Magnesium (11/11/2021 4:42 AM EST) [facility] Magnesium 0.93 0.69 - 1.07 mmol/L [facility] Blood Venous Draw / Unknown 11/11/2021 4:42 AM EST 11/11/2021 5:02 AM EST Narrative Resulting Agency Comment Spec In Lab Prashant Johnson MD CHEMISTRY ORDERABLES Performing Organization Address [facility] Co de Phone Number [facility] [place] [address] * (ABNORMAL) Differential, Automated (11/11/2021 4:42 AM EST) [facility] Neutrophil % 47.9 % [facility] Neutrophil Absolute 5.49 1.70 - 6.10 x10(3)/mc L [facility] Lymph % 27.9 % [facility] Lymphocytes Abs 3.2 0.9 - 3.2 x10(3)/mc L [facility] Monocyte % 10.9 % [facility] Monocyte Abs 1.2(H) 0.3 - 0.9 x10(3)/mc L [facility] Eos % 11.6 % [facility] Eosinophils Abs 1.3(H) 0.0 - 0.4 x10(3)/[facility] Basophil % 0.8 % [facility] Baso Absolute 0.1 0.0 - 0.1 x10(3)/[facility] LABORATORY Immature Gran % 0.90 % [facility] Comment: Immature granulocytes(IG's)percentage and absolute count will include metamyelocytes, myelocytes, and promyelocytes. Blood smears from CBCs yielding IG's will be scanned manually for concordance. If this scan disagrees with the automated IG or if promyelocytes are noted, a manual differential will be performed. Immature Gran Absolute 0.10(H) 0.00 - 0.04 x10(3)/[facility] LABORATORY Blood 11/11/2021 4:42 AM EST 11/11/2021 5:01 AM EST Narrative Resulting Agency Comment Spec In Lab Uday Alves MD HEMATOLOGY ORDERABLE S [facility] [place] [address] * (ABNORMAL) Hemogram (11/11/2021 4:42 AM EST) White Blood Cell 11.5(H) 4.0 - 9.5 x10(3)/[facility] LABORATORY Red Blood Cell 3.96(L) 4.00 - 5.21 x10(6)/[facility] LABORATORY Hemoglobin 10.5(L) 11.7 - 15.5 g/dL [facility] Hematocrit 32.0(L) 35.7 - 45.8 % [facility] Mean Cell Volume 80.8(L) 82.6 - 94.4 fL [facility] Mean Cell Hemoglobin 26.5(L) 27.1 - 32.0 pg [facility] Mean Cell Hemoglobin Concentration 32.8 31.7 - 35.0 g/dL [facility] Platelet 331 145 - 357 x10(3)/mc L [facility] RDW Standard Deviation 47.1(H) 37.0 - 46.0 fL [facility] RDW coefficient of variation 16.3(H) 11.5 - 14.1 % [facility] Mean Platelet Volume 10.3 7.6 - 12.9 fL [facility] NRBC% auto 0.0 % [facility] NRBC Absolute 0.000 0.000 - 0.000 x10(3)/mc L [facility] Blood 11/11/2021 4:42 AM EST 11/11/2021 5:01 AM EST Narrative Resulting Agency Comment Spec In Lab Uday Alves MD HEMATOLOGY ORDERABLE S Performing Organization Address City/State/[facility] [place] Phone Number [facility] [place] [address] * (ABNORMAL) Basic Metabolic Panel (non-fasting) (11/11/2021 4:42 AM EST) Glucose 99 65 - 199 mg/dL [facility] Comment:Diabetes: >=200 mg/d L plus symptoms Blood Urea Nitrogen 23(H) 8 - 18 mg/dL [facility] Creatinine 0.92 0.70 - 1.20 mg/dL [facility] Sodium 141 135 - 145 mmol/L [facility] Potassium 3.4(L) 3.5 - 5.0 mmol/L [facility] Comment: Please note: ??Patients with WBC >100,000 may have falsely elevated Potassium levels. ??For accurate Potassium quantification in these patients send serum separator tube (gold top) for subsequent determinations. ??Contact the Clinical Chemistry Laboratory if there are any questions. Chloride 104 98 - 107 mmol/L [facility] Carbon Dioxide 21(L) 22 - 31 mmol/L [facility] Anion Gap 16(H) 5 - 15 mmol/L [facility] Calcium 8.5 8.5 - 10.5 mg/dL [facility] Est Glomerular Filtration Rate 80 >=60 mL/min/1. 73 m?? [facility] Comment: This patient? s estimated glomerular filtration rate (eGFR) is between 80 mL/min/1.73 m2 (patients with less muscle mass) and 92 mL/min/1.73 m2 (patients with more muscle mass) [...] and symptoms in addition to eGFR. Blood 11/11/2021 4:42 AM EST 11/11/2021 5:01 AM EST Narrative Resulting Agency Comment Spec In Lab Yohannes Dhillon MD CHEMISTRY ORDERABLES Performing Organization Address City/[facility]/ZIP Co de Phone Number [facility] [place] [address] * Magnesium (11/10/2021 6:07 PM EST) Magnesium 0.83 0.69 - 1.07 mmol/L [facility] Blood 11/10/2021 6:07 PM EST 11/10/2021 6:17 PM EST Narrative Resulting Agency Comment Spec In Lab Valorie Obrien MD CHEMISTRY ORDERABLES Performing Organization Address [facility]/ZIP Co de Phone Number [facility] [place] [address] * Magnesium (11/10/2021 10:06 AM EST) Magnesium 0.82 0.69 - 1.07 mmol/L [facility] Blood 11/10/2021 10:0 6 AM EST 11/10/2021 10:39 AM EST Narrative Resulting Agency Comment Spec In Lab Valorie Obrien MD CHEMISTRY ORDERABLES Performing Organization Address [facility] Co de Phone Number [facility] [place] [address] * EKG 12 Lead (11/10/2021 7:54 AM EST) Ventricular rate 80 BPM MUSE SYSTEM Atrial Rate 80 BPM MUSE SYSTEM P-R Interval 130 ms MUSE SYSTEM QRS Duration 86 ms MUSE SYSTEM Q-T Interval 418 ms MUSE SYSTEM QTC Calculated (Bezet) 482 ms MUSE SYSTEM Calculated P [place] 48 degrees MUSE SYSTEM Calculated R [place] 31 degrees MUSE SYSTEM Calculated T [place] 93 degrees MUSE SYSTEM INTERPRETATION Normal sinus rhythm Nonspecific ST and T wave abnormality Prolonged QT Abnormal ECG When compared with ECG of 05-NOV-2021 16:01, Vent. rate has increased BY ??[address] now depressed in Lateral leads T wave inversion now evident in Anterior leads Confirmed by MD Vasile, Jonathan ([id number]) on 11/12/2021 10:05:57 AM MUSE SYSTEM 11/10/2021 7:54 AM EST 11/12/2021 10:05 AM EST Valorie Obrien MD ECG ORDERABLES Performing Organization Address [facility] Phone Number MUSE SYSTEM * Magnesium (11/09/2021 6:24 PM EST) Magnesium 0.98 0.69 - 1.07 mmol/L [facility] Blood 11/09/2021 6:24 PM EST 11/09/2021 6:29 PM EST Narrative Resulting Agency Comment Spec In Lab Valorie Obrien MD CHEMISTRY ORDERABLES Performing Organization Address [facility] Co de Phone Number [facility] [place] [address] * Scan, Peripheral Blood (11/09/2021 12:40 AM EST) Plat estimate Normal [facility] RBC Morphology Abnormal [facility] Hypochromia Slight [facility] Ovalocytes 1-5 /HPF [facility] Vacuolated Neut Present [facility] Blood 11/09/2021 12:4 0 AM EST 11/09/2021 12:45 AM EST Narrative Resulting Agency Comment Spec In Lab Uday Alves MD HEMATOLOGY ORDERABLE S Performing Organization Address City/State/[facility] Co de Phone Number [facility] [place] [address] * (ABNORMAL) Differential, Automated (11/09/2021 12:40 AM EST) Neutrophil % 79.7 % [facility] Neutrophil Absolute 13.19(H) 1.70 - 6.10 x10(3)/mc L [facility] Lymph % 8.6 % [facility] Lymphocytes Abs 1.4 0.9 - 3.2 x10(3)/ L [facility] Monocyte % 6.4 % [facility] Monocyte Abs 1.1(H) 0.3 - 0.9 x10(3)/ L [facility] Eos % 3.9 % [facility] Eosinophils Abs 0.6(H) 0.0 - 0.4 x10(3)/mc L [facility] Basophil % 0.4 % [facility] Baso Absolute 0.1 0.0 - 0.1 x10(3)/mc L [facility] Immature Gran % 1.00 % [facility] Comment: Immature granulocytes(IG's)percentage and absolute count will include metamyelocytes, myelocytes, and promyelocytes. Blood smears from CBCs yielding IG's will be scanned manually for concordance. If this scan disagrees with the automated IG or if promyelocytes are noted, a manual differential will be performed. Immature Gran Absolute 0.16(H) 0.00 - 0.04 x10(3)/mc L [facility] Blood 11/09/2021 12:4 0 AM EST 11/09/2021 12:45 AM EST Narrative Resulting Agency Comment Spec In Lab Uday Alves MD HEMATOLOGY ORDERABLE S [facility] [place] [address] * (ABNORMAL) Hemogram (11/09/2021 12:40 AM EST) White Blood Cell 16.5(H) 4.0 - 9.5 x10(3)/mc L [facility] Red Blood Cell 3.97(L) 4.00 - 5.21 x10(6)/mc L [facility] Hemoglobin 10.5(L) 11.7 - 15.5 g/dL [facility] Hematocrit 32.0(L) 35.7 - 45.8 % [facility] Mean Cell Volume 80.6(L) 82.6 - 94.4 fL [facility] Mean Cell Hemoglobin 26.4(L) 27.1 - 32.0 pg [facility] Mean Cell Hemoglobin Concentration 32.8 31.7 - 35.0 g/dL [facility] Platelet 237 145 - 357 x10(3)/mc L [facility] RDW Standard Deviation 48.1(H) 37.0 - 46.0 fL [facility] RDW coefficient of variation 16.6(H) 11.5 - 14.1 % [facility] Mean Platelet Volume 10.5 7.6 - 12.9 fL [facility] NRBC% auto 0.0 % [facility] NRBC Absolute 0.000 0.000 - 0.000 x10(3)/ L [facility] Blood 11/09/2021 12:4 0 AM EST 11/09/2021 12:45 AM EST Narrative Resulting Agency Comment Spec In Lab Uday Alves MD HEMATOLOGY ORDERABLE S [facility] [place] [address] * (ABNORMAL) Basic Metabolic Panel (non-fasting) (11/09/2021 12:40 AM EST) Glucose 121 65 - 199 mg/dL [facility] Comment:Diabetes: >=200 mg/d L plus symptoms Blood Urea Nitrogen 22(H) 8 - 18 mg/dL [facility] Comment:result rechecked-ng Creatinine 0.84 0.70 - 1.20 mg/dL [facility] Sodium 138 135 - 145 mmol/L [facility] Potassium 3.5 3.5 - 5.0 mmol/L [facility] Comment: Please note: ??Patients with WBC >100,000 may have falsely elevated Potassium levels. ??For accurate Potassium quantification in these patients send serum separator tube (gold top) for subsequent determinations. ??Contact the Clinical Chemistry Laboratory if there are any questions. Chloride 103 98 - 107 mmol/L [facility] Carbon Dioxide 24 22 - 31 mmol/L [facility] Anion Gap 11 5 - 15 mmol/L [facility] Calcium 9.0 8.5 - 10.5 mg/dL [facility] Est Glomerular Filtration Rate 89 >=60 mL/min/1. 73 m?? [facility] Comment: This patient? s estimated glomerular filtration rate (eGFR) is between 89 mL/min/1.73 m2 (patients with less muscle mass) and 103 mL/min/1.73 m2 (patients with more muscle mass) [...] and symptoms in addition to eGFR. Blood 11/09/2021 12:4 0 AM EST 11/09/2021 12:45 AM EST Narrative Resulting Agency Comment Spec In Lab Yohannes Dhillon MD CHEMISTRY ORDERABLES Performing Organization Address [facility] de Phone Number [facility] [place] [address] * Magnesium (11/09/2021 12:40 AM EST) Magnesium 0.97 0.69 - 1.07 mmol/L [facility] Blood 11/09/2021 12:4 0 AM EST 11/09/2021 12:45 AM EST Narrative Resulting Agency Comment Spec In Lab Valorie Obrien MD CHEMISTRY ORDERABLES Performing Organization Address [facility] de Phone Number [facility] [place] [address] * Magnesium (11/08/2021 7:05 PM EST) Magnesium 0.92 0.69 - 1.07 mmol/L [facility] Blood 11/08/2021 7:05 PM EST 11/08/2021 7:15 PM EST Narrative Resulting Agency Comment Spec In Lab Valorie Obrien MD CHEMISTRY ORDERABLES Performing Organization Address [facility] Phone Number [facility] [place] [address] * 24 Hour EEG, Portable (11/08/2021 1:47 PM EST) Narrative Darien Zavala MD - 11/08/2021 1:47 PM EST Leonora Mandujano MD ? 11/08/2021 ??2:13 PM [facility] Department of Neurology Inpatient Continuous EEG Report Name of the Patient: ??Aniya Lundy Date of : ?1985 Date of Service: ?11/08/2021 Referring physician: ?Jhony Regan, DO BRIEF HISTORY: Aniya Lundy is a 36 y.o. patient with a history of tobacco use, HTN, anxiety, depression, recent COVID-19 infection (diagnosed 09/27/2021) who suffered an out of hospital VF arrest with witnessed seizure. MEDICATIONS: Current Facility-Administered Medications Medication Dose Route Frequency Provider Last Rate Last Admin ? ? ceFEPime (Maxipime) 2g vial attach to sodium chloride 0.9% 100 mL Mini-Bag Plus 2 g ??2 g Intravenous Q8H Valorie Obrien MD ?? Stopped at 11/08/21 0839 ? ? vancomycin (Vancocin) 1.5 gram in sodium chloride 0.9% 500 mL infusion ??1.5 g Intravenous Q12H Valorie Obrien MD ?? Stopped at 11/08/21 1132 ? ? [START ON 11/09/2021] Vancomycin Level - MAR Order Reminder ?? NOT APPLICABLE Once Valorie Obrien MD ? tube feeding diet ??1,300 mL Per NG tube Continuous Jerrod Muse MD 20 mL/hr at 11/08/21 1315 1,300 mL at 11/08/21 1315 ? ? amLODIPine (Norvasc) tablet 10 mg ??10 mg Oral Daily Jerrod Muse MD ?? 10 mg at 11/08/21 1018 ? ? polyethylene glycoL (Miralax) packet 17 g ??17 g Oral BID Shana Zurita MD ?? 17 g at 11/08/21 1218 ? ? acetaminophen (Tylenol) tablet 650 mg ??650 mg Oral Q6H PRN Jerrod Muse MD ?? 650 mg at 11/08/21 1209 ? ? enoxaparin (Lovenox) (40 mg/0.4 mL) subcutaneous injection 40 mg ??40 mg Subcutaneous Nightly Jerrod Muse MD ?? 40 mg at 11/07/21 2115 ? ? dexmedetomidine (Precedex) (4 mcg/mL) in sodium chloride 0.9% 100 mL infusion ??0-1.7 mcg/kg/hr Intravenous Continuous Jerrod Muse MD ?? Stopped at 11/07/21 1645 ? ? lidocaine (Lidoderm) 5% patch 3 patch ??3 patch Transdermal Q24H Shana Zurita MD ?? 3 patch at 11/07/21 1744 And ? ? lidocaine (Lidoderm) topical patch REMOVAL ??3 patch Transdermal Q24H Shana Zurita MD ? midazolam (pf) (Versed) (1 mg/mL) injection 1 mg ??1 mg Intravenous Q4H PRN Ricahrd Asher MD ?? 1 mg at 11/05/21 0241 ? ? atorvastatin (Lipitor) tablet 40 mg ??40 mg Oral QPM Jerrod Muse MD ?? 40 mg at 11/07/21 1737 ? ? senna (Senokot) tablet 8.6 mg ??8.6 mg Oral BID PRN Jerrod Muse MD ?? 8.6 mg at 11/06/21 0800 ? ? NORepinephrine (Levophed) (16 mcg/mL) in dextrose 5% 250 mL infusion ??0-100 mcg/min Intravenous Continuous Uday Alves MD 0 mL/hr at 11/07/21 0700 0 mcg/min at 11/07/21 0700 ? ? famotidine (Pepcid) tablet 20 mg ??20 mg Oral BID Uday Alves MD ?? 20 mg at 11/08/21 1018 ? ? chlorhexidine (Peridex) 0.12 % oral solution 15 mL ??15 mL Oral BID Uday Alves MD ?? 15 mL at 11/08/21 0810 ? ? white petrolatum-mineral oiL ophthalmic ointment ??1 each Both Eyes BID Uday Alves MD ?? 1 each at 11/07/21 0947 ? ? sodium chloride 0.9 % (flush) (BD PosiFlush Normal Saline 0.9) flush 5 mL ??5 mL Intravenous BID Uday Alves MD ?? 5 mL at 11/08/21 0809 ? ? sodium chloride 0.9 % (flush) (BD PosiFlush Normal Saline 0.9) flush 5-20 mL ??5-20 mL Intravenous Q1 Min PRN Uday Alves MD ? nitroGLYcerin (Nitrostat) disintegrating tablet 0.4 mg ??0.4 mg Sublingual Q5 Min PRN Alves, Eunjung, MD ? busPIRone (Buspar) tablet 30 mg ??30 mg Oral Q8H Uday Alberto MD ? white petrolatum-mineral oiL (Eucerin) cream ?? Topical (Top) Q8H SONALI Uday Alves MD ?? Given at 11/06/212199 ? ? lidocaine (pf) (Xylocaine) (4 mg/mL) in dextrose 5% 500 mL infusion ?Continuous PRJama Benavides MD 15 mL/hr at 11/05/21 0500 Rate Verify at 11/05/21 0500 ? ? nitroGLYcerin (200 mcg/mL) in dextrose 5% 250 mL infusion ? Continuous Jama Salinas MD ?? Stopped at 11/04/212115 ? ? sodium chloride 0.9% infusion ?Continuous Jama Salinas MD ?? Stopped at 11/04/212199 ? ? iohexoL (Omnipaque) (350 mg/mL) solution ?Once PRJama Benavides MD ?? 12 mL at 11/04/211815 ? ? niCARdipine (Cardene) (0.2 mg/mL) in sodium chloride 200 mL infusion ??5 mg/hr Intravenous Continuous Rajat, Fausto Garcia MD ?? Held at 11/08/21 1222 METHODS: A ??21 channel digitized continuous electroencephalogram with video was set up and recording started at 11:05 on 11/04/2021. Following explanation of the procedure, the 10/20 international system of electrode placement was used to determine electrode placement and disposable MRI conditional electrodes were applied using the paste/collodion method of application. ??In addition to EEG the patient was monitored for EKG. Video was recorded during the session. BOAT DRIVER'S REPORT: Performed by: Leon Clark At the onset of the recording the patient was Intubated. Movement and other artifact was not significant. Comments:None [facility] Department of Neurology Critical Care Continuous EEG Report Patient: Aniya Lundy, [id number] Date: 11/08/21 Start Time: 05:00 11/07/2021 End Time: 11:05 11/08/2021 ?? Duration: 6 hours, 5 minutes Background Symmetry ? Symmetric Continuity ? Continuous Breach Present ? Absent PDR ? Absent --> Present, 8.5 Hz Background EEG Frequency ? > or equal to Alpha AP Gradient Present ? Present Variability ?Present Reactivity ? Present Voltage ? Normal Stage II Sleep Transients ? Present but abnormal Periodic/Rhythmic Patterns ? No Sporadic Epileptiform Discharges Prevalence ? None Clinical/push button events 00:55 11/05/21 Clinical: eye rolling, limb stiffening EEG: no abnormal epileptiform correlates 01:40 11/05/21 Clinical: The patient exhibits two generalized body jerks (01:39:39 and 01:40:04), arms/legs raise, blinking EEG: no abnormal epileptiform correlates Single lead EKG Intermittently rapid rate ? Interpretation This continuous video EEG is abnormal due to rare runs of theta slowing. Otherwise, the background consists of a well-formed anterior to posterior gradient, with posterior dominant rhythm of 8.5 and waking alpha rhythm. Clinical Correlation This day #4 (additional 6 hours) of EEG is suggestive of mild diffuse cerebral dysfunction of a nonspecific etiology. No seizures or epileptiform discharges are observed. Compared to the previous recording, there is an overall improvement in the degree cerebral dysfunction. The clinical push button events on 11/05 for eye rolling/stiffening and for two myoclonic jerks did not have corresponding EEG changes and therefore are not consistent with epileptic seizures. The EEG leads have been removed. Leonora Mandujano MD Epilepsy Fellow PGY-6 11/08/2021 Leonora Mandujano MD NEUROLOGY ORDERABLE S * MRSA PCR (11/08/2021 10:10 AM EST) MRSA PCR Negative Negative [facility] MRSA (Interp) Negative for methicillin-resis tant Staphylococcus aureus (MRSA) This test was performed using the GeneXpert?? Dx System and the Xpert MRSA Assay. The MRSA target DNA was not detected. The sample processing control and probe check were valid. The performance of this test was determined by the [facility] Molecular Pathology Laboratory. It has been cleared by the U.S. Food and Drug Administration for clinical use. [facility] Comment: [VERIFIED DATE]11.09.21 Verified By:Dudley Cook (Electronic Signature) Nasopharyngeal Swab 11/08/19 10:10 AM EST 11/08/2021 1:07 PM EST Narrative Resulting Agency Comment Spec In Lab Valorie Obrien MD MOLECULAR ORDERABLES Performing Organization Address City/[facility]/ZIP Co de Phone Number [facility] [place] [address] * Magnesium (11/08/2021 4:30 AM EST) [facility] Magnesium 0.85 0.69 - 1.07 mmol/L [facility] Blood Venous Draw / Unknown 11/08/2021 4:30 AM EST 11/08/2021 4:48 AM EST Narrative Resulting Agency Comment Spec In Lab Prashant Johnson MD CHEMISTRY ORDERABLES Performing Organization Address [facility] Co de Phone Number [facility] [place] [address] * Scan, Peripheral Blood (11/08/2021 4:30 AM EST) [facility] Plat estimate Normal [facility] RBC Morphology Abnormal [facility] Hypochromia Slight [facility] Ovalocytes 1-5 /HPF [facility] Blood 11/08/2021 4:30 AM EST 11/08/2021 4:47 AM EST Narrative Resulting Agency Comment Spec In Lab Uday Alves MD HEMATOLOGY ORDERABLE S Performing Organization Address [facility] Co de Phone Number [facility] [place] [address] * (ABNORMAL) Differential, Automated (11/08/2021 4:30 AM EST) [facility] Neutrophil % 86.8 % [facility] Neutrophil Absolute 15.88(H) 1.70 - 6.10 x10(3)/ L [facility] Lymph % 5.4 % [facility] Lymphocytes Abs 1.0 0.9 - 3.2 x10(3)/ L [facility] Monocyte % 5.9 % [facility] Monocyte Abs 1.1(H) 0.3 - 0.9 x10(3)/[facility] Eos % 0.7 % [facility] Eosinophils Abs 0.1 0.0 - 0.4 x10(3)/[facility] Basophil % 0.3 % [facility] Baso Absolute 0.0 0.0 - 0.1 x10(3)/[facility] Immature Gran % 0.90 % [facility] Comment: Immature granulocytes(IG's)percentage and absolute count will include metamyelocytes, myelocytes, and promyelocytes. Blood smears from CBCs yielding IG's will be scanned manually for concordance. If this scan disagrees with the automated IG or if promyelocytes are noted, a manual differential will be performed. Immature Gran Absolute 0.16(H) 0.00 - 0.04 x10(3)/[facility] Blood 11/08/2021 4:30 AM EST 11/08/2021 4:47 AM EST Narrative Resulting Agency Comment Spec In Lab Uday Alves MD HEMATOLOGY ORDERABLE S [facility] [place] [address] * (ABNORMAL) Hemogram (11/08/2021 4:30 AM EST) White Blood Cell 18.3(H) 4.0 - 9.5 x10(3)/[facility] Red Blood Cell 3.30(L) 4.00 - 5.21 x10(6)/[facility] Hemoglobin 8.6(L) 11.7 - 15.5 g/dL [facility] Hematocrit 27.3(L) 35.7 - 45.8 % [facility] Mean Cell Volume 82.7 82.6 - 94.4 fL [facility] Mean Cell Hemoglobin 26.1(L) 27.1 - 32.0 pg [facility] Mean Cell Hemoglobin Concentration 31.5(L) 31.7 - 35.0 g/dL [facility] Platelet 154 145 - 357 x10(3)/mc L [facility] RDW Standard Deviation 51.0(H) 37.0 - 46.0 [facility] RDW coefficient of variation 16.8(H) 11.5 - 14.1 % [facility] Mean Platelet Volume 11.5 7.6 - 12.9 fL [facility] NRBC% auto 0.0 % [facility] NRBC Absolute 0.000 0.000 - 0.000 x10(3)/[facility] Blood 11/08/2021 4:30 AM EST 11/08/2021 4:47 AM EST Narrative Resulting Agency Comment Spec In Lab Uday Alves MD HEMATOLOGY ORDERABLE S [facility] [place] [address] * (ABNORMAL) Basic Metabolic Panel (non-fasting) (11/08/2021 4:30 AM EST) Glucose 117 65 - 199 mg/dL [facility] Comment:Diabetes: >=200 mg/d L plus symptoms Blood Urea Nitrogen 12 8 - 18 mg/dL [facility] Creatinine 1.00 0.70 - 1.20 mg/dL [facility] Sodium 141 135 - 145 mmol/L [facility] Potassium 4.0 3.5 - 5.0 mmol/L [facility] Comment: result rechecked-gh Please note: ??Patients with WBC >100,000 may have falsely elevated Potassium levels. ??For accurate Potassium quantification in these patients send serum separator tube (gold top) for subsequent determinations. ??Contact the Clinical Chemistry Laboratory if there are any questions. Chloride 108(H) 98 - 107 mmol/L [facility] Carbon Dioxide 23 22 - 31 mmol/L [facility] Anion Gap 10 5 - 15 mmol/L [facility] Calcium 8.3(L) 8.5 - 10.5 mg/dL [facility] Est Glomerular Filtration Rate 72 >=60 mL/min/1. 73 m?? [facility] Comment: This patient? s estimated glomerular filtration rate (eGFR) is between 72 mL/min/1.73 m2 (patients with less muscle mass) and 83 mL/min/1.73 m2 (patients with more muscle mass) [...] and symptoms in addition to eGFR. Blood 11/08/2021 4:30 AM EST 11/08/2021 4:47 AM EST Narrative Resulting Agency Comment Spec In Lab Yohannes Dhillon MD CHEMISTRY ORDERABLES [facility] [place] [address] * Vancomycin, trough (11/07/2021 9:29 PM EST) Vancomycin, Trough 11.1 mg/L [facility] Comment: Therapeutic range for complicated infections such as bacteremia, endocarditis, osteomyelitis, meningitis, and hospital-acquired pneumonia caused by S. aureus: 15-20 mg/L Therapeutic range for other indications: 10-15 mg/L Toxic: >20 mg/L Reference: Vancomycin Therapeutic Monitoring: Review and Recommendations from the ASHP, IDSA and SIDP Task Force. ??Am J Health-Syst Pharm. 2009; 66:82-98 Blood 11/07/2021 9:29 PM EST 11/07/2021 9:39 PM EST Narrative Resulting Agency Comment Spec In Lab Tameka Spann MD CHEMISTRY ORDERABLES [facility] [place] [address] * XR Abdomen 1 view (Generic) (11/07/2021 11:25 AM EST) Anatomical Region Laterality Modality Abdomen N/A Digital Radiogra phy Impressions 11/07/2021 11:43 AM EST The distal tip of the nasogastric tube projects in the region of the antrum of the stomach. Thank you for letting us participate in the care of this patient. ??If you are a health care provider and have any questions regarding this report, please contact the number below. ??For patients who have questions please contact the health home day care provider that requested your imaging first. ? Narrative 11/07/2021 11:43 AM EST EXAMINATION: XR ABDOMEN 1 VIEW (GENERIC) CLINICAL HISTORY: NG tube placement TECHNIQUE: AP upper abdomen COMPARISON: November 04, 2021 FINDINGS: An enteric catheter with a weighted tip is present. The tip projects in the right upper quadrant of the abdomen at the level of L1. Several gas-filled mildly distended loops of small bowel present. The extent of bowel gas has diminished since the previous study. Procedure Note Chandrakant Pena MD - 11/07/2021 EXAMINATION: XR ABDOMEN 1 VIEW (GENERIC) CLINICAL HISTORY: NG tube placement TECHNIQUE: AP upper abdomen COMPARISON: November 04, 2021 FINDINGS: An enteric catheter with a weighted tip is present. The tip projects inthe right upper quadrant of the abdomen at the level of L1. Several gas-filled mildly distended loops of small bowel present. Theextent of bowel gas has diminished since the previous study. IMPRESSION The distal tip of the nasogastric tube projects in the region of theantrum of the stomach. Thank you for letting us participate in the care of this patient. If youare a health care provider and have any questions regarding this report,please contact the number below. For patients who have questions please contactthe health home day care provider that requested your imaging first. Valorie Obrien MD IMG DX ORDERABLES * (ABNORMAL) BLOOD GAS 2 ARTERIAL (11/07/2021 9:40 AM EST) pH, Arterial 7.34(L) 7.35 - 7.45 [facility] PCO2, Arterial 37 35 - 45 mmHg [facility] PO2, Arterial 88 85 - 104 mmHg [facility] Bicarbonate, Arterial 19.2(L) 20.0 - 26.0 mmol/L [facility] Base Excess, Arterial -6.7(L) -3.0 - 3.0 mmol/L [facility] Hgb Blood Gas 8.4(L) 11.7 - 15.5 g/dL [facility] Oxyhemoglobin, Arterial 94.8 94.0 - 97.0 % [facility] Carboxyhemoglob in, Arterial 0.1 % [facility] Comment: Nonsmokers: 0.5-1.5% COHB Smokers: Variable, but usually less than 10% Toxic: 20-30% COHB Lethal: Greater than 60% COHB Methemoglobin, Arterial 0.9 <=1.5 % [facility] Na Whole Blood 134(L) 135 - 145 mmol/L [facility] K Whole Blood 4.3 3.5 - 5.0 mmol/L [facility] Comment: Please note: Patients with WBC >100,000 may have falsely elevated Potassium levels. Contact the Clinical Chemistry Laboratory if there are any questions. ICa Whole Blood 1.11(L) 1.15 - 1.33 mmol/L [facility] Comment: Note: ??Total bilirubin higher than 20 mg/dL may lead to falsely low ionized calcium. CL Whole Blood 111(H) 98 - 107 mmol/L [facility] Gluc Whole Bld 90 65 - 199 mg/dL [facility] Comment:Diabetes: >=200 mg/d L plus symptoms. Lactate WB 0.6 0.5 - 2.2 mmol/L [facility] FIO2 Art 40 % [facility] PF Ratio Art 220 [facility] Blood 11/07/2021 9:40 AM EST 11/07/2021 9:40 AM EST Valorie Obrien MD POINT OF CARE TEST O RDERABLES Performing Organization Address City/State/[facility] Co de Phone Number [facility] [place] [address] * XR Chest One View (11/07/2021 9:16 AM EST) Anatomical Region Laterality Modality Chest N/A Digital Radiogra phy Impressions 11/07/2021 9:33 AM EST 1. Tubes and lines with expected position. 2. Persistent atelectasis/airspace consolidation at the left medial base unchanged from prior. Significant improvement in inflation of the right lower lobe. 3. Decreased central pulmonary vascular congestion and interstitial edema. Thank you for letting us participate in the care of this patient. ??If you are a health care provider and have any questions regarding this report, please contact the number below. ??For patients who have questions please contact the health home day care provider that requested your imaging first. ? Narrative 11/07/2021 9:33 AM EST EXAMINATION: XR CHEST ONE VIEW CLINICAL HISTORY: Respiratory Failure TECHNIQUE: 1 view of the chest COMPARISON: 11/06/2021 FINDINGS: Endotracheal tube 3.7 cm above the salomón. [place]-Jazmin catheter has been removed, right IJ sheath remains. Enteric tube in the stomach. Fibrillator pads overlie the chest. There is improved aeration at the right base. Persistent atelectasis/consolidation at the left medial base unchanged from prior. Decreased central vascular prominence of interstitial markings throughout. No evident pleural effusion. No pneumothorax. Cardiac and mediastinal contours unchanged. Bones and extrathoracic soft tissues unremarkable. Procedure Note Dinh Becerril MD - 11/07/2021 EXAMINATION: XR CHEST ONE VIEW CLINICAL HISTORY: Respiratory Failure TECHNIQUE: 1 view of the chest COMPARISON: 11/06/2021 FINDINGS: Endotracheal tube 3.7 cm above the salomón. [place]-Jazmin catheter has beenremoved, right IJ sheath remains. Enteric tube in the stomach. Fibrillator padsoverlie the chest. There is improved aeration at the right base. Persistent atelectasis/consolidation at the left medial base unchanged from prior. Decreased central vascular prominence of interstitial markings throughout.No evident pleural effusion. No pneumothorax. Cardiac and mediastinal contours unchanged. Bones and extrathoracic soft tissues unremarkable. IMPRESSION 1. Tubes and lines with expected position. 2. Persistent atelectasis/airspace consolidation at the left medial base unchanged from prior. Significant improvement in inflation of the rightlower lobe. 3. Decreased central pulmonary vascular congestion and interstitialedema. Thank you for letting us participate in the care of this patient. If youare a health care provider and have any questions regarding this report,please contact the number below. For patients who have questions please contactthe health home day care provider that requested your imaging first. Valorie Obrien MD IMG DX ORDERABLES * Vancomycin, trough (11/07/2021 8:00 AM EST) Pathologist [facility] Vancomycin, Trough 5.1 mg/L [facility] Comment: Therapeutic range for complicated infections such as bacteremia, endocarditis, osteomyelitis, meningitis, and hospital-acquired pneumonia caused by S. aureus: 15-20 mg/L Therapeutic range for other indications: 10-15 mg/L Toxic: >20 mg/L Reference: Vancomycin Therapeutic Monitoring: Review and Recommendations from the ASHP, IDSA and SIDP Task Force. ??Am J Health-Syst Pharm. 2009; 66:82-98 Blood 11/07/2021 8:00 AM EST 11/07/2021 8:08 AM EST Narrative Resulting Agency Comment Spec In Lab Tameka Spann MD CHEMISTRY ORDERABLES Performing Organization Address [facility] Co de Phone Number [facility] [place] [address] * Magnesium (11/07/2021 8:00 AM EST) Pathologist [facility] Magnesium 0.86 0.69 - 1.07 mmol/L [facility] Blood 11/07/2021 8:00 AM EST 11/07/2021 8:08 AM EST Narrative Resulting Agency Comment Spec In Lab Valorie Obrien MD CHEMISTRY ORDERABLES Performing Organization Address [facility]/ZIP Co de Phone Number [facility] [place] [address] * (ABNORMAL) BLOOD GAS 2 ARTERIAL (11/07/2021 6:30 AM EST) pH, Arterial 7.23(Criti cindy) 7.35 - 7.45 [facility] Comment:Not noted by instrum ent picking machine operator. PCO2, Arterial 46(H) 35 - 45 mmHg [facility] PO2, Arterial 90 85 - [address] [facility] Bicarbonate, Arterial 18.6(L) 20.0 - 26.0 mmol/L [facility] Base Excess, Arterial -9.0(L) -3.0 - 3.0 mmol/L [facility] Hgb Blood Gas 8.6(L) 11.7 - 15.5 g/dL [facility] Oxyhemoglobin, Arterial 94.6 94.0 - 97.0 % [facility] Carboxyhemoglob in, Arterial 0.0 % [facility] Comment: Nonsmokers: 0.5-1.5% COHB Smokers: Variable, but usually less than 10% Toxic: 20-30% COHB Lethal: Greater than 60% COHB Methemoglobin, Arterial 0.9 <=1.5 % [facility] Na Whole Blood 135 135 - 145 mmol/L [facility] K Whole Blood 4.7 3.5 - 5.0 mmol/L [facility] Comment: Please note: Patients with WBC >100,000 may have falsely elevated Potassium levels. Contact the Clinical Chemistry Laboratory if there are any questions. ICa Whole Blood 1.12(L) 1.15 - 1.33 mmol/L [facility] Comment: Note: ??Total bilirubin higher than 20 mg/dL may lead to falsely low ionized calcium. CL Whole Blood 110(H) 98 - 107 mmol/L [facility] Gluc Whole Bld 103 65 - 199 mg/dL [facility] Comment:Diabetes: >=200 mg/d L plus symptoms. Lactate WB 0.4(L) 0.5 - 2.2 mmol/L [facility] FIO2 Art 50 % [facility] PF Ratio Art 180 [facility] Blood 11/07/2021 6:30 AM EST 11/07/2021 6:30 AM EST Valorie Obrien MD POINT OF CARE TEST O RDERABLES [facility] [place] [address] * (ABNORMAL) BLOOD GAS 2 ARTERIAL (11/07/2021 2:07 AM EST) pH, Arterial 7.25(Criti cindy) 7.35 - 7.45 [facility] Comment:Noted by medical or surgical instrument maker. PCO2, Arterial 40 35 - 45 mmHg [facility] PO2, Arterial 117(H) 85 - 104 mmHg [facility] Bicarbonate, Arterial 17.0(L) 20.0 - 26.0 mmol/L [facility] Base Excess, Arterial -10.3(L) -3.0 - 3.0 mmol/L [facility] Hgb Blood Gas 8.6(L) 11.7 - 15.5 g/dL [facility] Oxyhemoglobin, Arterial 96.3 94.0 - 97.0 % [facility] Carboxyhemoglob in, Arterial 0.3 % [facility] Comment: Nonsmokers: 0.5-1.5% COHB Smokers: Variable, but usually less than 10% Toxic: 20-30% COHB Lethal: Greater than 60% COHB Methemoglobin, Arterial 0.9 <=1.5 % [facility] Na Whole Blood 132(L) 135 - 145 mmol/L [facility] K Whole Blood 4.6 3.5 - 5.0 mmol/L [facility] Comment: Please note: Patients with WBC >100,000 may have falsely elevated Potassium levels. Contact the Clinical Chemistry Laboratory if there are any questions. ICa Whole Blood 1.12(L) 1.15 - 1.33 mmol/L [facility] Comment: Note: ??Total bilirubin higher than 20 mg/dL may lead to falsely low ionized calcium. CL Whole Blood 109(H) 98 - 107 mmol/L [facility] Gluc Whole Bld 105 65 - 199 mg/dL [facility] Comment:Diabetes: >=200 mg/d L plus symptoms. Lactate WB 0.5 0.5 - 2.2 mmol/L [facility] FIO2 Art 70 % [facility] PF Ratio Art 167 [facility] Blood 11/07/2021 2:07 AM EST 11/07/2021 2:07 AM EST Valorie Orbien MD POINT OF CARE TEST O RDERABLES Performing Organization Address [facility]/ZIP Co de Phone Number [facility] [place] [address] * Scan, Peripheral Blood (11/07/2021 12:30 AM EST) Plat estimate Decreased [facility] RBC Morphology Abnormal [facility] Hypochromia Slight [facility] Ovalocytes 1-5 /HPF [facility] Stippled RBC Present >1/HPF [facility] Plat, Giant Less than 1 /HPF [facility] Blood 11/07/2021 12:3 0 AM EST 11/07/2021 1:56 AM EST Narrative Resulting Agency Comment Spec In Lab Uday Alves MD HEMATOLOGY ORDERABLE S Performing Organization Address [facility]/ZIP Co de Phone Number [facility] [place] [address] * (ABNORMAL) Differential, Automated (11/07/2021 12:30 AM EST) Neutrophil % 87.9 % [facility] Neutrophil Absolute 18.75(H) 1.70 - 6.10 x10(3)/mc L [facility] Lymph % 5.4 % [facility] Lymphocytes Abs 1.2 0.9 - 3.2 x10(3)/mc L [facility] Monocyte % 5.0 % [facility] Monocyte Abs 1.1(H) 0.3 - 0.9 x10(3)/[facility] Eos % 0.4 % [facility] Eosinophils Abs 0.1 0.0 - 0.4 x10(3)/[facility] Basophil % 0.2 % [facility] Baso Absolute 0.0 0.0 - 0.1 x10(3)/[facility] Immature Gran % 1.10 % [facility] Comment: Immature granulocytes(IG's)percentage and absolute count will include metamyelocytes, myelocytes, and promyelocytes. Blood smears from CBCs yielding IG's will be scanned manually for concordance. If this scan disagrees with the automated IG or if promyelocytes are noted, a manual differential will be performed. Immature Gran Absolute 0.24(H) 0.00 - 0.04 x10(3)/[facility] Blood 11/07/2021 12:3 0 AM EST 11/07/2021 1:56 AM EST Narrative Resulting Agency Comment Spec In Lab Uday Alves MD HEMATOLOGY ORDERABLE S Performing Organization Address City/State/[facility] Co de Phone Number [facility] [place] [address] * (ABNORMAL) Hemogram (11/07/2021 12:30 AM EST) White Blood Cell 21.4(H) 4.0 - 9.5 x10(3)/[facility] Red Blood Cell 2.94(L) 4.00 - 5.21 x10(6)/[facility] Hemoglobin 8.0(L) 11.7 - 15.5 g/dL [facility] Hematocrit 25.3(L) 35.7 - 45.8 % [facility] Mean Cell Volume 86.1 82.6 - 94.4 fL [facility] Mean Cell Hemoglobin 27.2 27.1 - 32.0 pg [facility] Mean Cell Hemoglobin Concentration 31.6(L) 31.7 - 35.0 g/dL [facility] Platelet 132(L) 145 - 357 x10(3)/mc L [facility] RDW Standard Deviation 53.4(H) 37.0 - 46.0 fL [facility] RDW coefficient of variation 17.1(H) 11.5 - 14.1 % [facility] Mean Platelet Volume 12.2 7.6 - 12.9 fL [facility] NRBC% auto 0.0 % [facility] NRBC Absolute 0.000 0.000 - 0.000 x10(3)/mc L [facility] Blood 11/07/2021 12:3 0 AM EST 11/07/2021 1:56 AM EST Narrative Resulting Agency Comment Spec In Lab Uday Alves MD HEMATOLOGY ORDERABLE S [facility] [place] [id number] * (ABNORMAL) Basic Metabolic Panel (non-fasting) (11/07/2021 12:30 AM EST) Glucose Not Perf 65 - 199 [facility] Comment: sample improperly processed Sample too old to perform test. Diabetes: >=200 mg/dL plus symptoms Blood Urea Nitrogen 14 8 - 18 mg/dL [facility] Creatinine 1.55(H) 0.70 - 1.20 mg/dL [facility] Sodium 139 135 - 145 mmol/L [facility] Potassium 5.2(H) 3.5 - 5.0 mmol/L [facility] Comment: Please note: ??Patients with WBC >100,000 may have falsely elevated Potassium levels. ??For accurate Potassium quantification in these patients send serum separator tube (gold top) for subsequent determinations. ??Contact the Clinical Chemistry Laboratory if there are any questions. Chloride 111(H) 98 - 107 mmol/L [facility] Carbon Dioxide 18(L) 22 - 31 mmol/L [facility] Anion Gap 10 5 - 15 mmol/L [facility] Calcium 7.6(L) 8.5 - 10.5 mg/dL [facility] Est Glomerular Filtration Rate 42(L) >=60 mL/min/1. 73 m?? [facility] Comment: This patient? s estimated glomerular filtration rate (eGFR) is between 42 mL/min/1.73 m2 (patients with less muscle mass) and 49 mL/min/1.73 m2 (patients with more muscle mass) [...] and symptoms in addition to eGFR. Blood 11/07/2021 12:3 0 AM EST 11/07/2021 1:56 AM EST Narrative Resulting Agency Comment Spec In Lab Yohannes Dhillon MD CHEMISTRY ORDERABLES [facility] [place] [address] * (ABNORMAL) BLOOD GAS 2 ARTERIAL (11/06/2021 8:44 PM EST) pH, Arterial 7.24(Criti cindy) 7.35 - 7.45 [facility] Comment:Noted by medical or surgical instrument maker. PCO2, Arterial 42 35 - 45 mmHg [facility] PO2, Arterial 80(L) 85 - 104 mmHg [facility] Bicarbonate, Arterial 17.6(L) 20.0 - 26.0 mmol/L [facility] Base Excess, Arterial -9.7(L) -3.0 - 3.0 mmol/L [facility] Hgb Blood Gas 9.1(L) 11.7 - 15.5 g/dL [facility] Oxyhemoglobin, Arterial 93.2(L) 94.0 - 97.0 % [facility] Carboxyhemoglob in, Arterial 0.3 % [facility] Comment: Nonsmokers: 0.5-1.5% COHB Smokers: Variable, but usually less than 10% Toxic: 20-30% COHB Lethal: Greater than 60% COHB Methemoglobin, Arterial 0.8 <=1.5 % [facility] Na Whole Blood 131(L) 135 - 145 mmol/L [facility] K Whole Blood 4.6 3.5 - 5.0 mmol/L [facility] Comment: Please note: Patients with WBC >100,000 may have falsely elevated Potassium levels. Contact the Clinical Chemistry Laboratory if there are any questions. ICa Whole Blood 1.13(L) 1.15 - 1.33 mmol/L [facility] Comment: Note: ??Total bilirubin higher than 20 mg/dL may lead to falsely low ionized calcium. CL Whole Blood 108(H) 98 - 107 mmol/L [facility] Gluc Whole Bld 109 65 - 199 mg/dL [facility] Comment:Diabetes: >=200 mg/d L plus symptoms. Lactate WB 0.9 0.5 - 2.2 mmol/L [facility] FIO2 Art 80 % [facility] PF Ratio Art 100 [facility] Blood 11/06/2021 8:44 PM EST 11/06/2021 8:44 PM EST Valorie Obrien MD POINT OF CARE TEST O RDERABLES [facility] [place] [address] * Magnesium (11/06/2021 8:30 PM EST) Magnesium 0.80 0.69 - 1.07 mmol/L [facility] Blood 11/06/2021 8:30 PM EST 11/06/2021 8:44 PM EST Narrative Resulting Agency Comment Spec In Lab Valorie Obrien MD CHEMISTRY ORDERABLES Performing Organization Address [facility] Co de Phone Number [facility] [place] [address] * Blood culture (11/06/2021 8:00 PM EST) Blood Culture No growth at 5 days. [facility] Blood STRUCTURE OF LEFT HAND / Unknown 11/06/2021 8:00 PM EST 11/06/2021 8:40 PM EST Narrative Resulting Agency Comment Spec In Lab Valorie Obrien MD MICROBIOLOGY - BLOOD ORDERABLES Performing Organization Address [facility] de Phone Number [facility] [place] [address] * Blood culture (11/06/2021 6:47 PM EST) Blood Culture No growth at 5 days. [facility] Blood 11/06/2021 6:47 PM EST 11/06/2021 7:12 PM EST Narrative Resulting Agency Comment Spec In Lab Valorie Obrien MD MICROBIOLOGY - BLOOD ORDERABLES Performing Organization Address [facility] Phone Number [facility] [place] [address] * XR Chest One View (11/06/2021 6:39 PM EST) Anatomical Region Laterality Modality Chest N/A Digital Radiogra phy Impressions 11/07/2021 9:56 AM EST 1. ??New indistinct opacities in the left lower lung may represent combination collapse/consolidation left lower lobe with overlying small left pleural effusion. 2. ??Mild pulmonary vascular congestion, stable. 3. ??Support equipment as above. I have personally reviewed the image(s) and the resident's interpretation and agree with the findings, Danielle Rausch MD at 11/07/2021 9:56 AM Thank you for letting us participate in the care of this patient. ??If you are a health care provider and have any questions regarding this report, please contact the number below. ??For patients who have questions please contact the health home day care provider that requested your imaging first. ? Narrative 11/07/2021 9:56 AM EST EXAMINATION: XR CHEST ONE VIEW CLINICAL HISTORY: Desat TECHNIQUE: AP portable view of the chest COMPARISON: Multiple prior recent chest radiographs dated from 11/04/2021 through 11/06/2021 at 6:31 AM FINDINGS: The endotracheal tube terminates in the mid upper thoracic trachea approximately 6.6 cm above the salomón. Unchanged position of the right internal jugular vein approach pulmonary artery catheter terminating in the right main pulmonary artery. The enteric tube courses below the diaphragm into the left upper quadrant outside the field of view. Interval removal of the intra-aortic balloon pump. As before, overlying defibrillator pads Limited evaluation of the lower mediastinum and left lower lung. Persistent pulmonary vascular congestion. New indistinct opacities in the left lower lung result interval obscuration of the left hemidiaphragm and left cardiac border. Mild atelectasis at the right lung base. No right pleural effusion. No pneumothorax. Stable cardiomediastinal silhouette. Procedure Note Danielle Rausch MD - 11/07/2021 EXAMINATION: XR CHEST ONE VIEW CLINICAL HISTORY: Desat TECHNIQUE: AP portable view of the chest COMPARISON: Multiple prior recent chest radiographs dated from 11/04/2021 through11/06/2021 at 6:31 AM FINDINGS: The endotracheal tube terminates in the mid upper thoracic tracheaapproximately 6.6 cm above the salomón. Unchanged position of the right internal jugularvein approach pulmonary artery catheter terminating in the right mainpulmonary artery. The enteric tube courses below the diaphragm into the left upper quadrant outside the field of view. Interval removal of the intra-aorticballoon pump. As before, overlying defibrillator pads Limited evaluation of thelower mediastinum and left lower lung. Persistent pulmonary vascular congestion. New indistinct opacities in theleft lower lung result interval obscuration of the left hemidiaphragm andleft cardiac border. Mild atelectasis at the right lung base. No rightpleural effusion. No pneumothorax. Stable cardiomediastinal silhouette. IMPRESSION 1. New indistinct opacities in the left lower lung may representcombination collapse/consolidation left lower lobe with overlying small left pleural effusion. 2. Mild pulmonary vascular congestion, stable. 3. Support equipment as above. I have personally reviewed the image(s) and the resident's interpretationand agree with the findings, Danielle Rausch MD at 11/07/2021 9:56 AM Thank you for letting us participate in the care of this patient. If youare a health care provider and have any questions regarding this report,please contact the number below. For patients who have questions please contactthe health home day care provider that requested your imaging first. Valorie Obrien MD IMG DX ORDERABLES * (ABNORMAL) BLOOD GAS 2 ARTERIAL (11/06/2021 5:59 PM EST) pH, Arterial 7.23(Criti cindy) 7.35 - 7.45 [facility] Comment:not Noted by instrum ent picking machine operator. PCO2, Arterial 43 35 - 45 mmHg [facility] PO2, Arterial 71(L) 85 - 104 mmHg [facility] Bicarbonate, Arterial 17.6(L) 20.0 - 26.0 mmol/L [facility] Base Excess, Arterial -9.9(L) -3.0 - 3.0 mmol/L [facility] Hgb Blood Gas 9.4(L) 11.7 - 15.5 g/dL [facility] Oxyhemoglobin, Arterial 90.6(L) 94.0 - 97.0 % [facility] Carboxyhemoglob in, Arterial 0.3 % [facility] Comment: Nonsmokers: 0.5-1.5% COHB Smokers: Variable, but usually less than 10% Toxic: 20-30% COHB Lethal: Greater than 60% COHB Methemoglobin, Arterial 0.8 <=1.5 % [facility] Na Whole Blood 134(L) 135 - 145 mmol/L [facility] K Whole Blood 4.4 3.5 - 5.0 mmol/L [facility] Comment: Please note: Patients with WBC >100,000 may have falsely elevated Potassium levels. Contact the Clinical Chemistry Laboratory if there are any questions. ICa Whole Blood 1.11(L) 1.15 - 1.33 mmol/L [facility] Comment: Note: ??Total bilirubin higher than 20 mg/dL may lead to falsely low ionized calcium. CL Whole Blood 109(H) 98 - 107 mmol/L [facility] Gluc Whole Bld 125 65 - 199 mg/dL [facility] Comment:Diabetes: >=200 mg/d L plus symptoms. Lactate WB 1.7 0.5 - 2.2 mmol/L [facility] FIO2 Art 70 % [facility] PF Ratio Art 101 [facility] Blood 11/06/2021 5:59 PM EST 11/06/2021 5:59 PM EST Valorie Obrien MD POINT OF CARE TEST O RDERABLES [facility] [place] [address] * (ABNORMAL) BLOOD GAS 2 ARTERIAL (11/06/2021 2:33 PM EST) pH, Arterial 7.33(L) 7.35 - 7.45 [facility] PCO2, Arterial 34(L) 35 - 45 mmHg [facility] PO2, Arterial 67(L) 85 - 104 mmHg [facility] Bicarbonate, Arterial 17.5(L) 20.0 - 26.0 mmol/L [facility] Base Excess, Arterial -8.4(L) -3.0 - 3.0 mmol/L [facility] Hgb Blood Gas 8.6(L) 11.7 - 15.5 g/dL [facility] Oxyhemoglobin, Arterial 90.9(L) 94.0 - 97.0 % [facility] Carboxyhemoglob in, Arterial 0.3 % [facility] Comment: Nonsmokers: 0.5-1.5% COHB Smokers: Variable, but usually less than 10% Toxic: 20-30% COHB Lethal: Greater than 60% COHB Methemoglobin, Arterial 0.9 <=1.5 % [facility] Na Whole Blood 132(L) 135 - 145 mmol/L [facility] K Whole Blood 4.0 3.5 - 5.0 mmol/L [facility] Comment: Please note: Patients with WBC >100,000 may have falsely elevated Potassium levels. Contact the Clinical Chemistry Laboratory if there are any questions. ICa Whole Blood 1.09(L) 1.15 - 1.33 mmol/L [facility] Comment: Note: ??Total bilirubin higher than 20 mg/dL may lead to falsely low ionized calcium. CL Whole Blood 112(H) 98 - 107 mmol/L [facility] Gluc Whole Bld 103 65 - 199 mg/dL [facility] Comment:Diabetes: >=200 mg/d L plus symptoms. Lactate WB 0.8 0.5 - 2.2 mmol/L [facility] FIO2 Art 50 % [facility] PF Ratio Art 134 [facility] Blood 11/06/2021 2:33 PM EST 11/06/2021 2:33 PM EST Valorie Obrien MD POINT OF CARE TEST O RDERABLES Performing Organization Address [facility]/ZIP Co de Phone Number [facility] [place] [address] * Lower Respiratory Culture Tracheal Aspirate (11/06/2021 12:20 PM EST) Lower Respiratory Culture Many mixed bacterial morphotypes suggestive of normal upper respiratory al [facility] Gram Stain Many Neutrophils seen Few squamous epithelial cells seen Many mixed bacterial morphotypes suggestive of normal upper respiratory al [facility] Tracheal Aspirate 11/06/2021 12:20 PM EST 11/06/2021 12:51 PM EST Narrative Resulting Agency Comment Spec In Lab Tameka Spann MD MICROBIOLOGY - GENER AL ORDERABLES Performing Organization Address [facility] Co de Phone Number [facility] [place] [address] * (ABNORMAL) BLOOD GAS 2 ARTERIAL (11/06/2021 7:46 AM EST) pH, Arterial 7.29(Criti cindy) 7.35 - 7.45 [facility] Comment:Noted by medical or surgical instrument maker. PCO2, Arterial 40 35 - 45 mmHg [facility] PO2, Arterial 62(L) 85 - 104 mmHg [facility] Bicarbonate, Arterial 18.9(L) 20.0 - 26.0 mmol/L [facility] Base Excess, Arterial -7.6(L) -3.0 - 3.0 mmol/L [facility] Hgb Blood Gas 9.1(L) 11.7 - 15.5 g/dL [facility] Oxyhemoglobin, Arterial 89.0(L) 94.0 - 97.0 % [facility] Carboxyhemoglob in, Arterial 0.3 % [facility] Comment: Nonsmokers: 0.5-1.5% COHB Smokers: Variable, but usually less than 10% Toxic: 20-30% COHB Lethal: Greater than 60% COHB Methemoglobin, Arterial 0.9 <=1.5 % [facility] Na Whole Blood 128(L) 135 - 145 mmol/L [facility] K Whole Blood 4.0 3.5 - 5.0 mmol/L [facility] Comment: Please note: Patients with WBC >100,000 may have falsely elevated Potassium levels. Contact the Clinical Chemistry Laboratory if there are any questions. ICa Whole Blood 1.06(L) 1.15 - 1.33 mmol/L [facility] Comment: Note: ??Total bilirubin higher than 20 mg/dL may lead to falsely low ionized calcium. CL Whole Blood 110(H) 98 - 107 mmol/L [facility] Gluc Whole Bld 94 65 - 199 mg/dL [facility] Comment:Diabetes: >=200 mg/d L plus symptoms. Lactate WB 0.9 0.5 - 2.2 mmol/L [facility] FIO2 Art 40 % [facility] PF Ratio Art 155 [facility] Blood 11/06/2021 7:46 AM EST 11/06/2021 7:46 AM EST Valorie Obrien MD POINT OF CARE TEST O RDERABLES Performing Organization Address City/State/[facility] Co de Phone Number [facility] [place] [address] * XR Chest One View (11/06/2021 6:36 AM EST) Anatomical Region Laterality Modality Chest N/A Digital Radiogra phy Impressions 11/06/2021 6:47 AM EST * ??Equipment as above. * ??Mild pulmonary vascular congestion. Thank you for letting us participate in the care of this patient. ??If you are a health care provider and have any questions regarding this report, please contact the number below. ??For patients who have questions please contact the health home day care provider that requested your imaging first. ? Electronically signed by: Kimberley Pichardo MD, [facility] ([phone]), at 11/06/2021 6:47 AM Narrative 11/06/2021 6:47 AM EST EXAMINATION: XR CHEST ONE VIEW CLINICAL HISTORY: IABP placement TECHNIQUE: 1 view of the chest COMPARISON: Chest x-ray 11/05/2021. FINDINGS: Endotracheal tube terminates 3 cm above the salomón. Enteric tube courses below the diaphragm and beyond the [id number]. Right IJV approach catheter terminates in the right pulmonary artery. IABP marker projects 1.5 cm below the aortic knob. Overlying defibrillator pads limit evaluation of the left lower hemithorax. No consolidation, pleural effusion or pneumothorax. Unchanged cardiomediastinal silhouette. Mild pulmonary vascular congestion. Unchanged osseous structures. Unremarkable upper abdomen. Procedure Note Cecelia Pichardo MD - 11/06/2021 EXAMINATION: XR CHEST ONE VIEW CLINICAL HISTORY: IABP placement TECHNIQUE: 1 view of the chest COMPARISON: Chest x-ray 11/05/2021. FINDINGS: Endotracheal tube terminates 3 cm above the salomón. Enteric tube coursesbelow the diaphragm and beyond the [id number]. Right IJV approach catheter terminates in the right pulmonary artery. IABP marker projects 1.5 cmbelow the aortic knob. Overlying defibrillator pads limit evaluation of the left lowerhemithorax. No consolidation, pleural effusion or pneumothorax. Unchangedcardiomediastinal silhouette. Mild pulmonary vascular congestion. Unchanged osseousstructures. Unremarkable upper abdomen. IMPRESSION * Equipment as above. * Mild pulmonary vascular congestion. Thank you for letting us participate in the care of this patient. If youare a health care provider and have any questions regarding this report,please contact the number below. For patients who have questions please contactthe health home day care provider that requested your imaging first. Electronically signed by: Kimberley Pichardo MD, [facility]([phone]), at 11/06/2021 6:47 AM Valorie Obrien MD IMG DX ORDERABLES * (ABNORMAL) BLOOD GAS 2 ARTERIAL (11/06/2021 4:28 AM EST) pH, Arterial 7.21(Criti cindy) 7.35 - 7.45 [facility] Comment:Noted by medical or surgical instrument maker. PCO2, Arterial 46(H) 35 - 45 mmHg [facility] PO2, Arterial 66(L) 85 - 104 mmHg [facility] Bicarbonate, Arterial 18.1(L) 20.0 - 26.0 mmol/L [facility] Base Excess, Arterial -9.9(L) -3.0 - 3.0 mmol/L [facility] Hgb Blood Gas 9.9(L) 11.7 - 15.5 g/dL [facility] Oxyhemoglobin, Arterial 88.6(L) 94.0 - 97.0 % [facility] Carboxyhemoglob in, Arterial 0.3 % [facility] Comment: Nonsmokers: 0.5-1.5% COHB Smokers: Variable, but usually less than 10% Toxic: 20-30% COHB Lethal: Greater than 60% COHB Methemoglobin, Arterial 0.9 <=1.5 % [facility] Na Whole Blood 130(L) 135 - 145 mmol/L [facility] K Whole Blood 4.2 3.5 - 5.0 mmol/L [facility] Comment: Please note: Patients with WBC >100,000 may have falsely elevated Potassium levels. Contact the Clinical Chemistry Laboratory if there are any questions. ICa Whole Blood 1.14(L) 1.15 - 1.33 mmol/L [facility] Comment: Note: ??Total bilirubin higher than 20 mg/dL may lead to falsely low ionized calcium. CL Whole Blood 107 98 - 107 mmol/L [facility] Gluc Whole Bld 107 65 - 199 mg/dL [facility] Comment:Diabetes: >=200 mg/d L plus symptoms. Lactate WB 0.8 0.5 - 2.2 mmol/L [facility] FIO2 Art 40 % [facility] PF Ratio Art 165 [facility] Blood 11/06/2021 4:28 AM EST 11/06/2021 4:28 AM EST Valorie Obrien MD POINT OF CARE TEST O RDERABLES Performing Organization Address City/[facility]/ZIP Co de Phone Number [facility] [place] [address] * Scan, Peripheral Blood (11/06/2021 4:25 AM EST) Pathologist [facility] Plat estimate Normal [facility] RBC Morphology Abnormal [facility] Macrocyte 1-5 /HPF [facility] Hypochromia Slight [facility] Tear Cell 1-5 /HPF [facility] Annel Cells 1-5 /HPF [facility] Stippled RBC Present >1/HPF [facility] Blood 11/06/2021 4:25 AM EST 11/06/2021 4:37 AM EST Narrative Resulting Agency Comment Spec In Lab Uday Alves MD HEMATOLOGY ORDERABLE S Performing Organization Address [facility] Co de Phone Number [facility] [place] [address] * (ABNORMAL) Differential, Automated (11/06/2021 4:25 AM EST) Neutrophil % 75.1 % [facility] Neutrophil Absolute 12.72(H) 1.70 - 6.10 x10(3)/mc L [facility] Lymph % 13.5 % [facility] Lymphocytes Abs 2.3 0.9 - 3.2 x10(3)/mc L [facility] Monocyte % 8.7 % [facility] Monocyte Abs 1.5(H) 0.3 - 0.9 x10(3)/mc L [facility] Eos % 1.8 % [facility] Eosinophils Abs 0.3 0.0 - 0.4 x10(3)/[facility] Basophil % 0.4 % [facility] Baso Absolute 0.1 0.0 - 0.1 x10(3)/[facility] Immature Gran % 0.50 % [facility] Comment: Immature granulocytes(IG's)percentage and absolute count will include metamyelocytes, myelocytes, and promyelocytes. Blood smears from CBCs yielding IG's will be scanned manually for concordance. If this scan disagrees with the automated IG or if promyelocytes are noted, a manual differential will be performed. Immature Gran Absolute 0.09(H) 0.00 - 0.04 x10(3)/[facility] Blood 11/06/2021 4:25 AM EST 11/06/2021 4:37 AM EST Narrative Resulting Agency Comment Spec In Lab dUay Alves MD HEMATOLOGY ORDERABLE S [facility] [place] [address] * (ABNORMAL) Hemogram (11/06/2021 4:25 AM EST) White Blood Cell 17.0(H) 4.0 - 9.5 x10(3)/ L [facility] Red Blood Cell 3.38(L) 4.00 - 5.21 x10(6)/ L [facility] Hemoglobin 9.2(L) 11.7 - 15.5 g/dL [facility] Hematocrit 28.5(L) 35.7 - 45.8 % [facility] Mean Cell Volume 84.3 82.6 - 94.4 fL [facility] Mean Cell Hemoglobin 27.2 27.1 - 32.0 pg [facility] Mean Cell Hemoglobin Concentration 32.3 31.7 - 35.0 g/dL [facility] Platelet 156 145 - 357 x10(3)/mc L [facility] RDW Standard Deviation 51.4(H) 37.0 - 46.0 fL [facility] RDW coefficient of variation 16.7(H) 11.5 - 14.1 % [facility] Mean Platelet Volume 11.4 7.6 - 12.9 fL [facility] NRBC% auto 0.0 % [facility] NRBC Absolute 0.000 0.000 - 0.000 x10(3)/mc L [facility] Blood 11/06/2021 4:25 AM EST 11/06/2021 4:37 AM EST Narrative Resulting Agency Comment Spec In Lab Uday Alves MD HEMATOLOGY ORDERABLE S Performing Organization Address City/State/[facility] Co de Phone Number [facility] [place] [address] * Heparin (unfractionated) Level (11/06/2021 4:25 AM EST) UF Heparin 0.73 IU/mL [facility] Comment: Heparin (anti-Xa) levels should be determined in a plasma sample that has been drawn 6 hours after a dose change to approximate steady-state for continuous heparin infusions. Indication specific Heparin (anti-Xa) levels based on order set selection: Acute DVT or PE treatment: 0.3 ? 0.7 IU/mL Thrombosis Prevention (eg. atrial fibrillation, shyanne-procedural bridging, mechanical valves): 0.3 ? 0.7 IU/mL Acute Coronary Syndrome: 0.3 ? 0.7 IU/mL Stroke Indications: 0.3 ? 0.5 IU/mL Ultra-low intensity (select indications in cardiac surgery): 0.1 ? 0.3 IU/mL Blood 11/06/2021 4:25 AM EST 11/06/2021 4:37 AM EST Narrative Resulting Agency Comment Spec In Lab Valorie Obrein MD HEMATOLOGY ORDERABLE S [facility] [place] [address] * (ABNORMAL) Basic Metabolic Panel (non-fasting) (11/06/2021 4:25 AM EST) Glucose 109 65 - 199 mg/dL [facility] Comment:Diabetes: >=200 mg/d L plus symptoms Blood Urea Nitrogen 14 8 - 18 mg/dL [facility] Creatinine 1.34(H) 0.70 - 1.20 mg/dL [facility] Sodium 138 135 - 145 mmol/L [facility] Potassium 4.5 3.5 - 5.0 mmol/L [facility] Comment: Please note: ??Patients with WBC >100,000 may have falsely elevated Potassium levels. ??For accurate Potassium quantification in these patients send serum separator tube (gold top) for subsequent determinations. ??Contact the Clinical Chemistry Laboratory if there are any questions. Chloride 108(H) 98 - 107 mmol/L [facility] Carbon Dioxide 19(L) 22 - 31 mmol/L [facility] Anion Gap 11 5 - 15 mmol/L [facility] Calcium 7.8(L) 8.5 - 10.5 mg/dL [facility] Est Glomerular Filtration Rate 50(L) >=60 mL/min/1. 73 m?? [facility] Comment: This patient? s estimated glomerular filtration rate (eGFR) is between 50 mL/min/1.73 m2 (patients with less muscle mass) and 59 mL/min/1.73 m2 (patients with more muscle mass) [...] and symptoms in addition to eGFR. Blood 11/06/2021 4:25 AM EST 11/06/2021 4:37 AM EST Narrative Resulting Agency Comment Spec In Lab Yohannes Dhillon MD CHEMISTRY ORDERABLES Performing Organization Address [facility] Co de Phone Number [facility] [place] [address] * Prothrombin Time (11/06/2021 4:25 AM EST) Prothrombin Time 12.4 9.4 - 12.5 sec [facility] International Normalization Ratio 1.1 [facility] Comment: An INR <2.0 indicates adequate procoagulant activity for hemostasis in most patients without underlying bleeding disorders, though the INR may not adequately reflect hemostatic capacity in patients with liver disease and synthetic impairment. The recommended target INR range for therapeutic anticoagulation is 2.0 ? 3.0 for most applications, though lower and higher ranges may be appropriate depending on clinical circumstances. Blood 11/06/2021 4:25 AM EST 11/06/2021 4:37 AM EST Narrative Resulting Agency Comment Spec In Lab Valorie Obrien MD HEMATOLOGY ORDERABLE S Performing Organization Address [facility] Co de Phone Number [facility] [place] [address] * (ABNORMAL) Hepatic Function Panel (11/06/2021 4:25 AM EST) Protein, Total 5.3(L) 6.1 - 8.0 g/dL [facility] Albumin 3.3 3.2 - 5.2 g/dL [facility] Aspartate Aminotransferase 107(H) 0 - 30 unit/L [facility] Alanine Aminotransferase 64(H) 0 - 30 unit/L [facility] Alkaline Phosphatase 61 35 - 105 unit/L [facility] Bilirubin, Total 0.2 0.2 - 1.3 mg/dL [facility] Bilirubin, Direct 0.2 0.0 - 0.3 mg/dL [facility] Blood 11/06/2021 4:25 AM EST 11/06/2021 4:37 AM EST Narrative Resulting Agency Comment Spec In Lab Valorie Obrien MD CHEMISTRY ORDERABLES [facility] [place] [address] * (ABNORMAL) BLOOD GAS 2 ARTERIAL (11/05/2021 4:53 PM EST) pH, Arterial 7.36 7.35 - 7.45 [facility] PCO2, Arterial 34(L) 35 - 45 mmHg [facility] PO2, Arterial 71(L) 85 - 104 mmHg [facility] Bicarbonate, Arterial 18.6(L) 20.0 - 26.0 mmol/L [facility] Base Excess, Arterial -6.8(L) -3.0 - 3.0 mmol/L [facility] Hgb Blood Gas 8.9(L) 11.7 - 15.5 g/dL [facility] Oxyhemoglobin, Arterial 92.5(L) 94.0 - 97.0 % [facility] Carboxyhemoglob in, Arterial 0.3 % [facility] Comment: Nonsmokers: 0.5-1.5% COHB Smokers: Variable, but usually less than 10% Toxic: 20-30% COHB Lethal: Greater than 60% COHB Methemoglobin, Arterial 0.7 <=1.5 % [facility] Na Whole Blood 130(L) 135 - 145 mmol/L [facility] K Whole Blood 4.0 3.5 - 5.0 mmol/L [facility] Comment: Please note: Patients with WBC >100,000 may have falsely elevated Potassium levels. Contact the Clinical Chemistry Laboratory if there are any questions. ICa Whole Blood 1.09(L) 1.15 - 1.33 mmol/L [facility] Comment: Note: ??Total bilirubin higher than 20 mg/dL may lead to falsely low ionized calcium. CL Whole Blood 110(H) 98 - 107 mmol/L [facility] Gluc Whole Bld 98 65 - 199 mg/dL [facility] Comment:Diabetes: >=200 mg/d L plus symptoms. Lactate WB 1.0 0.5 - 2.2 mmol/L [facility] FIO2 Art 40 % [facility] PF Ratio Art 178 [facility] Blood 11/05/2021 4:53 PM EST 11/05/2021 4:53 PM EST Valorie Obrien MD POINT OF CARE TEST O RDERABLES Performing Organization Address [facility] Co de Phone Number [facility] [place] [address] * EKG 12 Lead (11/05/2021 4:01 PM EST) Ventricular rate 44 BPM MUSE SYSTEM Atrial Rate 44 BPM MUSE SYSTEM P-R Interval 140 ms MUSE SYSTEM QRS Duration 86 ms MUSE SYSTEM Q-T Interval 558 ms MUSE SYSTEM QTC Calculated (Bezet) 477 ms MUSE SYSTEM Calculated P [place] 46 degrees MUSE SYSTEM Calculated R [place] 50 degrees MUSE SYSTEM Calculated T [place] 39 degrees MUSE SYSTEM INTERPRETATION Marked sinus bradycardia Prolonged QT Nonspecific ST abnormality Abnormal ECG When compared with ECG of 05-NOV-2021 08:59, No significant change was found Confirmed by MD Levi, [facility] ([id number]) on 11/06/2021 11:47:37 AM MUSE SYSTEM 11/05/2021 4:01 PM EST 11/06/2021 11:47 AM EST Yohannes Dhillon MD ECG ORDERABLES Performing Organization Address [facility] Co de Phone Number MUSE SYSTEM * (ABNORMAL) BLOOD GAS 2 ARTERIAL (11/05/2021 2:06 PM EST) pH, Arterial 7.26(Criti cindy) 7.35 - 7.45 [facility] PCO2, Arterial 46(H) 35 - 45 mmHg [facility] PO2, Arterial 85 85 - 104 mmHg [facility] Bicarbonate, Arterial 20.1 20.0 - 26.0 mmol/L [facility] Base Excess, Arterial -6.9(L) -3.0 - 3.0 mmol/L [facility] Hgb Blood Gas 10.2(L) 11.7 - 15.5 g/dL [facility] Oxyhemoglobin, Arterial 93.6(L) 94.0 - 97.0 % [facility] Carboxyhemoglob in, Arterial 0.3 % [facility] Comment: Nonsmokers: 0.5-1.5% COHB Smokers: Variable, but usually less than 10% Toxic: 20-30% COHB Lethal: Greater than 60% COHB Methemoglobin, Arterial 0.6 <=1.5 % [facility] Na Whole Blood 130(L) 135 - 145 mmol/L [facility] K Whole Blood 4.1 3.5 - 5.0 mmol/L [facility] Comment: Please note: Patients with WBC >100,000 may have falsely elevated Potassium levels. Contact the Clinical Chemistry Laboratory if there are any questions. ICa Whole Blood 1.15 1.15 - 1.33 mmol/L [facility] Comment: Note: ??Total bilirubin higher than 20 mg/dL may lead to falsely low ionized calcium. CL Whole Blood 109(H) 98 - 107 mmol/L [facility] Gluc Whole Bld 100 65 - 199 mg/dL [facility] Comment:Diabetes: >=200 mg/d L plus symptoms. Lactate WB 0.7 0.5 - 2.2 mmol/L [facility] FIO2 Art 40 % [facility] [facility] PF Ratio Art 212 [facility] Blood 11/05/2021 2:06 PM EST 11/05/2021 2:06 PM EST Valorie Obrien MD POINT OF CARE TEST O RDERABLES [facility] [place] [address] * Magnesium (11/05/2021 2:06 PM EST) Magnesium 0.99 0.69 - 1.07 mmol/L [facility] Blood 11/05/2021 2:06 PM EST 11/05/2021 2:29 PM EST Narrative Resulting Agency Comment Spec In Lab Valorie Obrien MD CHEMISTRY ORDERABLES [facility] [place] [address] * (ABNORMAL) Basic Metabolic Panel (non-fasting) (11/05/2021 2:06 PM EST) Glucose 98 65 - 199 mg/dL [facility] Comment:Diabetes: >=200 mg/d L plus symptoms Blood Urea Nitrogen 15 8 - 18 mg/dL [facility] Creatinine 1.17 0.70 - 1.20 mg/dL [facility] Sodium 137 135 - 145 mmol/L [facility] Potassium 4.3 3.5 - 5.0 mmol/L [facility] Comment: Please note: ??Patients with WBC >100,000 may have falsely elevated Potassium levels. ??For accurate Potassium quantification in these patients send serum separator tube (gold top) for subsequent determinations. ??Contact the Clinical Chemistry Laboratory if there are any questions. Chloride 108(H) 98 - 107 mmol/L [facility] Carbon Dioxide 19(L) 22 - 31 mmol/L [facility] Anion Gap 10 5 - 15 mmol/L [facility] Calcium 7.7(L) 8.5 - 10.5 mg/dL [facility] Est Glomerular Filtration Rate 59(L) >=60 mL/min/1. 73 m?? [facility] Comment: This patient? s estimated glomerular filtration rate (eGFR) is between 59 mL/min/1.73 m2 (patients with less muscle mass) and 69 mL/min/1.73 m2 (patients with more muscle mass) [...] and symptoms in addition to eGFR. Blood 11/05/2021 2:06 PM EST 11/05/2021 2:29 PM EST Narrative Resulting Agency Comment Spec In Lab Valorie Obrien MD CHEMISTRY ORDERABLES [facility] [place] [id number] * Carotid Duplex, Bilateral (11/05/2021 2:02 PM EST) VB Text Report Department: Vascular Surgery Lab Patient: [id number] (ANIYA LUNDY) CPT: 06668 Referring Physician: VALORIE OBRIEN ?? Phone: Indications: ??Diffuse vasospasm, ? carotid vasospasm Findings: ICA Proximal, Right ? PSV (cm/s): 98 ? EDV (cm/s): 14 ? ICA/CCA: 1.8 ? Plaque Structure: Echogenic ? Plaque Surface: Smooth ? %Stenosis: <15% ICA Distal, Right ? PSV (cm/s): 50 ? EDV (cm/s): 9 ? ICA/CCA: 0.9 CCA Distal, Right ? PSV (cm/s): 53 ? EDV (cm/s): 0 ? %Stenosis: Minimal External Carotid Artery, Right ? PSV (cm/s): 61 ? EDV (cm/s): 0 ? %Stenosis: Minimal ICA Proximal, Left ? PSV (cm/s): 83 ? EDV (cm/s): 13 ? ICA/CCA: 1.1 ? Plaque Structure: Echogenic ? Plaque Surface: Smooth ? %Stenosis: <15% ICA Distal, Left ? PSV (cm/s): 65 ? EDV (cm/s): 9 ? ICA/CCA: 0.8 CCA Distal, Left ? PSV (cm/s): 79 ? EDV (cm/s): 0 ? %Stenosis: Minimal CCA Proximal, Left ? PSV (cm/s): 77 ? EDV (cm/s): 29 External Carotid Artery, Left ? PSV (cm/s): 87 ? EDV (cm/s): 35 ? %Stenosis: Minimal Vertebral, Left ? PSV (cm/s): 55 ? EDV (cm/s): 0 ? Direction of Flow: Antegrade Interpretation: RIGHT: Limited exam due to presence of central line and associated dressings. Only a focal segment of the distal common carotid artery could be visualized where it is widely patent. Unable to visualize the carotid bifurcation and ICA and ECA origins. The internal and external carotid arteries could be visualized at what is suspected to be a location just above the bifurcation where both arteries are widely patent with minimal smooth plaque seen in the ICA causing <15% stenosis. No evidence of vasospasm was identified in the carotid segments visualized. LEFT: Widely patent common carotid artery, carotid bifurcation and visualized portion of the extracranial internal carotid artery with minimal smooth plaque in the proximal internal carotid artery causing <15% stenosis when compared to the more distal internal carotid artery. No evidence of vasospasm was identified. The bifurcation level is in the mid neck. Note: Doppler waveforms are abnormal throughout the bilateral common, internal and external carotid arteries. This is most likely due to presence of an intra-aortic balloon pump. Vertebral Artery Data: Patent LEFT vertebral artery with antegrade flow. Abnormal Doppler waveforms are noted, however, this is most likely due to presence of an intra-aortic balloon pump as noted above. Unable to visualize the RIGHT vertebral artery. Comparison: ??No previous study in our vascular lab database for comparison. Electronically Signed by: LAST BRENNAN on 2021-11-06 11:34:46 AM [facility]AS[facility] VB Text Report End of Report [facility] 11/05/2021 2:02 PM EST Valorie Obrien MD VASCULAR ORDERABLES Performing Organization Address [facility] de Phone Number VASCUBASE * EKG 12 Lead (11/05/2021 8:59 AM EST) Ventricular rate 49 BPM MUSE SYSTEM Atrial Rate 49 BPM MUSE SYSTEM P-R Interval 134 ms MUSE SYSTEM QRS Duration 88 ms MUSE SYSTEM Q-T Interval 540 ms MUSE SYSTEM QTC Calculated (Bezet) 487 ms MUSE SYSTEM Calculated P [place] 42 degrees MUSE SYSTEM Calculated R [place] 43 degrees MUSE SYSTEM Calculated T [place] 44 degrees MUSE SYSTEM INTERPRETATION Sinus bradycardia Prolonged QT Nonspecific ST abnormality Abnormal ECG When compared with ECG of 04-NOV-2021 15:23, No significant change was found I personally reviewed the tracing and edited the fellows interpretation Confirmed by fellow Alexei Gray ([id number]) on 11/05/2021 4:33:54 PM Confirmed by MD Levi, Wyatt ([id number]) on 11/05/2021 4:37:08 PM MUSE SYSTEM 11/05/2021 8:59 AM EST 11/05/2021 4:37 PM EST Yohannes Dhillon MD ECG ORDERABLES Performing Organization Address [facility] de Phone Number MUSE SYSTEM * XR Chest One View (11/05/2021 8:40 AM EST) Anatomical Region Laterality Modality Chest N/A Digital Radiogra phy Impressions 11/05/2021 9:48 AM EST 1. ??Intra-aortic balloon pump marker is 1.8 cm below the aortic knob. 2. ??Slightly improved left basilar atelectasis and resolved left pleural effusion. I have personally reviewed the image(s) and the resident's interpretation and agree with the findings, Danielle Rausch MD at 11/05/2021 9:48 AM Thank you for letting us participate in the care of this patient. ??If you are a health care provider and have any questions regarding this report, please contact the number below. ??For patients who have questions please contact the health home day care provider that requested your imaging first. ? Narrative 11/05/2021 9:48 AM EST EXAMINATION: XR CHEST ONE VIEW CLINICAL HISTORY: IABP Placement TECHNIQUE: 1 view of the chest COMPARISON: Chest radiograph 11/04/2021 at 2020 and 1000 CTA chest 11/04/2021 FINDINGS: Endotracheal tube tip is 2.8 cm above the salomón. Enteric tube courses below the diaphragm, the tip is not within the [id number]. Esophageal temperature probe terminates in the mid esophagus. Right IJ approach [place]-Jazmin catheter terminates in the right pulmonary artery. Intra-aortic balloon pump marker is 1.8 cm below the aortic knob. Slightly improved left basilar opacities likely representing improving atelectasis. The right lung is clear. No pleural effusion or pneumothorax. The cardiomediastinal silhouette is normal. No displaced rib fractures. Procedure Note Danielle Rausch MD - 11/05/2021 EXAMINATION: XR CHEST ONE VIEW CLINICAL HISTORY: IABP Placement TECHNIQUE: 1 view of the chest COMPARISON: Chest radiograph 11/04/2021 at 2020 and 1000 CTA chest 11/04/2021 FINDINGS: Endotracheal tube tip is 2.8 cm above the salomón. Enteric tube coursesbelow the diaphragm, the tip is not within the [id number]-[id number]. Esophageal temperatureprobe terminates in the mid esophagus. Right IJ approach [place]-Jazmin catheterterminates in the right pulmonary artery. Intra-aortic balloon pump marker is 1.8 cmbelow the aortic knob. Slightly improved left basilar opacities likely representing improving atelectasis. The right lung is clear. No pleural effusion or pneumothorax.The cardiomediastinal silhouette is normal. No displaced rib fractures. IMPRESSION 1. Intra-aortic balloon pump marker is 1.8 cm below the aortic knob. 2. Slightly improved left basilar atelectasis and resolved left pleural effusion. I have personally reviewed the image(s) and the resident's interpretationand agree with the findings, Danielle Rausch MD at 11/05/2021 9:48 AM Thank you for letting us participate in the care of this patient. If youare a health care provider and have any questions regarding this report,please contact the number below. For patients who have questions please contactthe health home day care provider that requested your imaging first. Valorie Obrien MD IMG DX ORDERABLES * (ABNORMAL) BLOOD GAS 2 ARTERIAL (11/05/2021 8:05 AM EST) pH, Arterial 7.38 7.35 - 7.45 [facility] PCO2, Arterial 31(L) 35 - 45 mmHg [facility] PO2, Arterial 92 85 - 104 mmHg [facility] Bicarbonate, Arterial 17.5(L) 20.0 - 26.0 mmol/L [facility] Base Excess, Arterial -7.7(L) -3.0 - 3.0 mmol/L [facility] Hgb Blood Gas 9.8(L) 11.7 - 15.5 g/dL [facility] Oxyhemoglobin, Arterial 95.2 94.0 - 97.0 % [facility] Carboxyhemoglob in, Arterial 0.3 % [facility] Comment: Nonsmokers: 0.5-1.5% COHB Smokers: Variable, but usually less than 10% Toxic: 20-30% COHB Lethal: Greater than 60% COHB Methemoglobin, Arterial 0.7 <=1.5 % [facility] Na Whole Blood 134(L) 135 - 145 mmol/L [facility] K Whole Blood 3.9 3.5 - 5.0 mmol/L [facility] Comment: Please note: Patients with WBC >100,000 may have falsely elevated Potassium levels. Contact the Clinical Chemistry Laboratory if there are any questions. ICa Whole Blood 1.10(L) 1.15 - 1.33 mmol/L [facility] Comment: Note: ??Total bilirubin higher than 20 mg/dL may lead to falsely low ionized calcium. CL Whole Blood 111(H) 98 - 107 mmol/L [facility] Gluc Whole Bld 105 65 - 199 mg/dL [facility] Comment:Diabetes: >=200 mg/d L plus symptoms. Lactate WB 0.8 0.5 - 2.2 mmol/L [facility] FIO2 Art 40 % [facility] PF Ratio Art 230 [facility] Blood 11/05/2021 8:05 AM EST 11/05/2021 8:05 AM EST Valorie Obrien MD POINT OF CARE TEST O RDERABLES Performing Organization Address [facility]/ZIP Co de Phone Number [facility] [place] [address] * (ABNORMAL) CRP, acute inflammation (11/05/2021 6:27 AM EST) C-Reactive Protein 29.1(H) <=4.9 mg/L [facility] Blood Venous Draw / Unknown 11/05/2021 6:27 AM EST 11/05/2021 6:36 AM EST Narrative Resulting Agency Comment Spec In Lab Uday Alves MD CHEMISTRY ORDERABLES Performing Organization Address City/[facility]/ZIP Co de Phone Number [facility] [place] [address] * Heparin (unfractionated) Level (11/05/2021 6:27 AM EST) UF Heparin 0.58 IU/mL [facility] Comment: Heparin (anti-Xa) levels should be determined in a plasma sample that has been drawn 6 hours after a dose change to approximate steady-state for continuous heparin infusions. Indication specific Heparin (anti-Xa) levels based on order set selection: Acute DVT or PE treatment: 0.3 ? 0.7 IU/mL Thrombosis Prevention (eg. atrial fibrillation, shyanne-procedural bridging, mechanical valves): 0.3 ? 0.7 IU/mL Acute Coronary Syndrome: 0.3 ? 0.7 IU/mL Stroke Indications: 0.3 ? 0.5 IU/mL Ultra-low intensity (select indications in cardiac surgery): 0.1 ? 0.3 IU/mL Blood 11/05/2021 6:27 AM EST 11/05/2021 6:35 AM EST Narrative Resulting Agency Comment Spec In Lab Valorie Obrien MD HEMATOLOGY ORDERABLE S [facility] [place] [address] * (ABNORMAL) Troponin (11/05/2021 6:27 AM EST) Troponin-T 0.06(H) 0.00 - 0.00 ng/mL [facility] Comment: The 99th percentile for Troponin T is less than 0.01 ng/mL, any detectable cTnT concentration using this assay should be considered elevated. According to the third universal definition of myocardial infarction the following criteria with a clinical presentation consistent with acute myocardial ischemia meets the diagnosis for a myocardial infarction (PR). Detection of a rise and/or fall of cTnT, with at least one value greater than the 99th percentile (> or = 0.01) and with at least one of the following ?? Symptoms of ischemia ?? New or presumed new significant NG-kdmjhzc-X wave (ST-T) changes or new left bundle [...] additional sample may be indicated. Reference: Third [place] Definition of Myocardial Infarction. Journal of the [place] [employer] 2012;60:1581-98 Blood 11/05/2021 6:27 AM EST 11/05/2021 6:35 AM EST Narrative Resulting Agency Comment Spec In Lab Valorie Obrien MD CHEMISTRY ORDERABLES Performing Organization Address City/[facility]/ZIP Co de Phone Number [facility] [place] [address] * Sedimentation rate (11/05/2021 1:08 AM EST) [facility] Sedimentation Rate Automated <3 2 - 37 mm/hr [facility] Comment: Effective September 29, 2019 new capillary photometric technology has resulted in a change in reference ranges. It is recommended that each ESR result be reviewed with its own age appropriate reference range. Blood Venous Draw / Unknown 11/05/2021 1:08 AM EST 11/05/2021 1:21 AM EST Narrative Resulting Agency Comment Spec In Lab Uday Alves MD HEMATOLOGY ORDERABLE S Performing Organization Address City/[facility]/ZIP Co de Phone Number [facility] [place] [address] * (ABNORMAL) Differential, Automated (11/05/2021 1:08 AM EST) [facility] Neutrophil % 64.8 % [facility] Neutrophil Absolute 7.68(H) 1.70 - 6.10 x10(3)/mc L [facility] Lymph % 24.6 % [facility] Lymphocytes Abs 2.9 0.9 - 3.2 x10(3)/mc L [facility] Monocyte % 8.4 % [facility] Monocyte Abs 1.0(H) 0.3 - 0.9 x10(3)/mc L [facility] Eos % 1.4 % [facility] Eosinophils Abs 0.2 0.0 - 0.4 x10(3)/mc L [facility] Basophil % 0.3 % [facility] Baso Absolute 0.0 0.0 - 0.1 x10(3)/ L [facility] Immature Gran % 0.50 % [facility] Comment: Immature granulocytes(IG's)percentage and absolute count will include metamyelocytes, myelocytes, and promyelocytes. Blood smears from CBCs yielding IG's will be scanned manually for concordance. If this scan disagrees with the automated IG or if promyelocytes are noted, a manual differential will be performed. Immature Gran Absolute 0.06(H) 0.00 - 0.04 x10(3)/ L [facility] Blood 11/05/2021 1:08 AM EST 11/05/2021 1:21 AM EST Narrative Resulting Agency Comment Spec In Lab Uday Alves MD HEMATOLOGY ORDERABLE S [facility] [place] [address] * (ABNORMAL) Hemogram (11/05/2021 1:08 AM EST) White Blood Cell 11.8(H) 4.0 - 9.5 x10(3)/[facility] Red Blood Cell 3.73(L) 4.00 - 5.21 x10(6)/ L [facility] Hemoglobin 9.7(L) 11.7 - 15.5 g/dL [facility] Hematocrit 30.9(L) 35.7 - 45.8 % [facility] Mean Cell Volume 82.8 82.6 - 94.4 fL [facility] Mean Cell Hemoglobin 26.0(L) 27.1 - 32.0 pg [facility] Mean Cell Hemoglobin Concentration 31.4(L) 31.7 - 35.0 g/dL [facility] Platelet 185 145 - 357 x10(3)/[facility] RDW Standard Deviation 50.1(H) 37.0 - 46.0 fL [facility] RDW coefficient of variation 16.7(H) 11.5 - 14.1 % [facility] Mean Platelet Volume 12.1 7.6 - 12.9 [facility] NRBC% auto 0.0 % [facility] NRBC Absolute 0.000 0.000 - 0.000 x10(3)/mc L [facility] Blood 11/05/2021 1:08 AM EST 11/05/2021 1:21 AM EST Narrative Resulting Agency Comment Spec In Lab Uday Alves MD HEMATOLOGY ORDERABLE S Performing Organization Address [facility]/ZIP Co de Phone Number [facility] [place] [address] * Phosphorus (11/05/2021 1:08 AM EST) Phosphorus 2.9 2.5 - 4.5 mg/dL [facility] Blood 11/05/2021 1:08 AM EST 11/05/2021 1:21 AM EST Narrative Resulting Agency Comment Spec In Lab Valorie Obrien MD CHEMISTRY ORDERABLES Performing Organization Address [facility] Co de Phone Number [facility] [place] [address] * Magnesium (11/05/2021 1:08 AM EST) Magnesium 0.80 0.69 - 1.07 mmol/L [facility] Blood 11/05/2021 1:08 AM EST 11/05/2021 1:21 AM EST Narrative Resulting Agency Comment Spec In Lab Valorie Obrien MD CHEMISTRY ORDERABLES Performing Organization Address [facility] Co de Phone Number [facility] [place] [address] * (ABNORMAL) Troponin (11/05/2021 1:08 AM EST) Troponin-T 0.07(H) 0.00 - 0.00 ng/mL [facility] Comment: The 99th percentile for Troponin T is less than 0.01 ng/mL, any detectable cTnT concentration using this assay should be considered elevated. According to the third universal definition of myocardial infarction the following criteria with a clinical presentation consistent with acute myocardial ischemia meets the diagnosis for a myocardial infarction (PR). Detection of a rise and/or fall of cTnT, with at least one value greater than the 99th percentile (> or = 0.01) and with at least one of the following ?? Symptoms of ischemia ?? New or presumed new significant DW-vdpkyin-D wave (ST-T) changes or new left bundle [...] additional sample may be indicated. Reference: Third [place] Definition of Myocardial Infarction. Journal of the [place] [employer] 2012;60:1581-98 Blood 11/05/2021 1:08 AM EST 11/05/2021 1:21 AM EST Narrative Resulting Agency Comment Spec In Lab Valorie Obrien MD CHEMISTRY ORDERABLES [facility] [place] [address] * Heparin (unfractionated) Level (11/05/2021 1:08 AM EST) Pathologist [facility] UF Heparin 0.51 IU/mL [facility] Comment: Heparin (anti-Xa) levels should be determined in a plasma sample that has been drawn 6 hours after a dose change to approximate steady-state for continuous heparin infusions. Indication specific Heparin (anti-Xa) levels based on order set selection: Acute DVT or PE treatment: 0.3 ? 0.7 IU/mL Thrombosis Prevention (eg. atrial fibrillation, shyanne-procedural bridging, mechanical valves): 0.3 ? 0.7 IU/mL Acute Coronary Syndrome: 0.3 ? 0.7 IU/mL Stroke Indications: 0.3 ? 0.5 IU/mL Ultra-low intensity (select indications in cardiac surgery): 0.1 ? 0.3 IU/mL Blood 11/05/2021 1:08 AM EST 11/05/2021 1:21 AM EST Narrative Resulting Agency Comment Spec In Lab Valorie Obrien MD HEMATOLOGY ORDERABLE S [facility] [place] [address] * (ABNORMAL) Basic Metabolic Panel (non-fasting) (11/05/2021 1:08 AM EST) Glucose 104 65 - 199 mg/dL [facility] Comment:Diabetes: >=200 mg/d L plus symptoms Blood Urea Nitrogen 17 8 - 18 mg/dL [facility] Creatinine 0.78 0.70 - 1.20 mg/dL [facility] Sodium 137 135 - 145 mmol/L [facility] Comment:result rechecked-KS Potassium 4.0 3.5 - 5.0 mmol/L [facility] Comment: result rechecked-KS Please note: ??Patients with WBC >100,000 may have falsely elevated Potassium levels. ??For accurate Potassium quantification in these patients send serum separator tube (gold top) for subsequent determinations. ??Contact the Clinical Chemistry Laboratory if there are any questions. Chloride 110(H) 98 - 107 mmol/L [facility] Comment:result rechecked-KS Carbon Dioxide 19(L) 22 - 31 mmol/L [facility] Anion Gap 8 5 - 15 mmol/L [facility] Calcium 7.7(L) 8.5 - 10.5 mg/dL [facility] Comment:result rechecked-KS Est Glomerular Filtration Rate 97 >=60 mL/min/1. 73 m?? [facility] Comment: This patient? s estimated glomerular filtration rate (eGFR) is between 97 mL/min/1.73 m2 (patients with less muscle mass) and 113 mL/min/1.73 m2 (patients with more muscle mass) [...] and symptoms in addition to eGFR. Blood 11/05/2021 1:08 AM EST 11/05/2021 1:21 AM EST Narrative Resulting Agency Comment Spec In Lab Yohannes Dhillon MD CHEMISTRY ORDERABLES [facility] [place] [address] * (ABNORMAL) BLOOD GAS 2 ARTERIAL (11/05/2021 1:07 AM EST) pH, Arterial 7.36 7.35 - 7.45 [facility] PCO2, Arterial 33(L) 35 - 45 mmHg [facility] PO2, Arterial 86 85 - 104 mmHg [facility] Bicarbonate, Arterial 18.4(L) 20.0 - 26.0 mmol/L [facility] Base Excess, Arterial -7.0(L) -3.0 - 3.0 mmol/L [facility] Hgb Blood Gas 10.8(L) 11.7 - 15.5 g/dL [facility] Oxyhemoglobin, Arterial 94.7 94.0 - 97.0 % [facility] Carboxyhemoglob in, Arterial 0.3 % [facility] Comment: Nonsmokers: 0.5-1.5% COHB Smokers: Variable, but usually less than 10% Toxic: 20-30% COHB Lethal: Greater than 60% COHB Methemoglobin, Arterial 0.7 <=1.5 % [facility] Na Whole Blood 136 135 - 145 mmol/L [facility] K Whole Blood 4.0 3.5 - 5.0 mmol/L [facility] Comment: Please note: Patients with WBC >100,000 may have falsely elevated Potassium levels. Contact the Clinical Chemistry Laboratory if there are any questions. ICa Whole Blood 1.12(L) 1.15 - 1.33 mmol/L [facility] Comment: Note: ??Total bilirubin higher than 20 mg/dL may lead to falsely low ionized calcium. CL Whole Blood 109(H) 98 - 107 mmol/L [facility] Gluc Whole Bld 103 65 - 199 mg/dL [facility] Comment:Diabetes: >=200 mg/d L plus symptoms. Lactate WB 0.8 0.5 - 2.2 mmol/L [facility] FIO2 Art 40 % [facility] PF Ratio Art 215 [facility] Blood 11/05/2021 1:07 AM EST 11/05/2021 1:07 AM EST Valorie Obrien MD POINT OF CARE TEST O RDERABLES Performing Organization Address City/[facility]/ZIP Co de Phone Number [facility] [place] [address] * Blood culture (11/04/2021 10:50 PM EST) Blood Culture No growth at 5 days. [facility] Blood STRUCTURE OF RIGHT HAND / Unknown 11/04/2021 10:50 PM EST 11/04/2021 11:00 PM EST Narrative Resulting Agency Comment Spec In Lab Yohannes Dhillon MD MICROBIOLOGY - BLOOD ORDERABLES Performing Organization Address City/[facility]/ZIP Co de Phone Number [facility] [place] [address] * Blood culture (11/04/2021 10:15 PM EST) Blood Culture No growth at 5 days. [facility] Blood ANTECUBITAL REGION STRUCTURE / Unknown 11/04/2021 10:15 PM EST 11/04/2021 10:59 PM EST Narrative Resulting Agency Comment Spec In Lab Yohannes Dhillon MD MICROBIOLOGY - BLOOD ORDERABLES Performing Organization Address [facility]/ZIP Co de Phone Number [facility] [place] [address] * Green Tube HOLD (11/04/2021 8:58 PM EST) [facility] Green Hold Sample in lab. [facility] Blood Venous Draw / Unknown 11/04/2021 8:58 PM EST 11/04/2021 9:07 PM EST Uday Alves MD CHEMISTRY ORDERABLES Performing Organization Address [facility] Co de Phone Number [facility] [place] [address] * (ABNORMAL) BLOOD GAS 2 ARTERIAL (11/04/2021 8:58 PM EST) [facility] pH, Arterial 7.40 7.35 - 7.45 [facility] PCO2, Arterial 26(L) 35 - 45 mmHg [facility] PO2, Arterial 228(H) 85 - 104 mmHg [facility] Bicarbonate, Arterial 16.2(L) 20.0 - 26.0 mmol/L [facility] Base Excess, Arterial -8.9(L) -3.0 - 3.0 mmol/L [facility] Hgb Blood Gas 10.7(L) 11.7 - 15.5 g/dL [facility] Oxyhemoglobin, Arterial 98.0(H) 94.0 - 97.0 % [facility] Carboxyhemoglob in, Arterial 0.3 % [facility] Comment: Nonsmokers: 0.5-1.5% COHB Smokers: Variable, but usually less than 10% Toxic: 20-30% COHB Lethal: Greater than 60% COHB Methemoglobin, Arterial 0.6 <=1.5 % [facility] Na Whole Blood 134(L) 135 - 145 mmol/L [facility] K Whole Blood 4.2 3.5 - 5.0 mmol/L [facility] Comment: Please note: Patients with WBC >100,000 may have falsely elevated Potassium levels. Contact the Clinical Chemistry Laboratory if there are any questions. ICa Whole Blood 1.09(L) 1.15 - 1.33 mmol/L [facility] Comment: Note: ??Total bilirubin higher than 20 mg/dL may lead to falsely low ionized calcium. CL Whole Blood 109(H) 98 - 107 mmol/L [facility] Gluc Whole Bld 103 65 - 199 mg/dL [facility] Comment:Diabetes: >=200 mg/d L plus symptoms. Lactate WB 0.9 0.5 - 2.2 mmol/L [facility] FIO2 Art 60 % [facility] PF Ratio Art 380 [facility] Temp Art 35.5 Celsius [facility] Blood 11/04/2021 8:58 PM EST 11/04/2021 8:58 PM EST Valorie Obrien MD POINT OF CARE TEST O FRANCISCO JAVIER [facility] [place] [address] * Extractable Nuclear Antigen (NILAY) Ab (11/04/2021 8:58 PM EST) NILAY Ab Test ?Result ? Flag ??Unit ??RefValue Ab to Extractable Nuclear Ag Eval,S ??SS-A/Ro Ab, IgG, S ?<0.2 ? U ? <1.0 (Negative) ??SS-B/La Ab, IgG, S ?<0.2 ? U ? <1.0 (Negative) ??Sm Ab, IgG, S ? <0.2 ? U ? <1.0 (Negative) ??POLE CLIMBER Ab, IgG, S ?0.5 ?U ? <1.0 (Negative) ??Scl 70 Ab, IgG, S ? <0.2 ? U ? <1.0 (Negative) ??Consuelo 1 Ab, IgG, S ? <0.2 ? U ? <1.0 (Negative) ?Test Performed by: ?[facility] [address] ?[address] [place] [address] ?Drafting Teacher: Binh Calyton M.D. Ph.D.; CLIA# [id number] [facility] Blood 11/04/2021 8:58 PM EST 11/05/2021 10:21 AM EST Narrative Resulting Agency Comment Spec In Lab Valorie Obrien MD LAB SEND OUT ORDERAB LES [facility] [place] [address] * DARIAN (11/04/2021 8:58 PM EST) DARIAN Ab Screen Test ?Result ? Flag ??Unit ??RefValue Antinuclear Ab, HEp-2 ? <1:80 (Negative) ? <1:80 (Negative) ??Substrate, S ? ADDITIONAL INFORMATION --------- ?Method: Immunofluorescence using HEp-2 cellular substrate. ?Test Performed by: ?[facility] ?[address] [place] [address] ?Drafting Teacher: Binh Clayton M.D. Ph.D.; IA# [id number] [facility] Blood 11/04/2021 8:58 PM EST 11/05/2021 10:21 AM EST Narrative Resulting Agency Comment Spec In Lab Valorie Obrien MD LAB SEND OUT ORDERAB LES [facility] [place] [address] * XR Chest One View (11/04/2021 8:22 PM EST) Anatomical Region Laterality Modality Chest N/A Digital Radiogra phy Impressions 11/04/2021 8:53 PM EST 1. ??Lines and tubes as above. 2. ??Small left pleural effusion and left basilar atelectasis, compatible with expected postprocedural changes. I have personally reviewed the image(s) and the resident's interpretation and agree with the findings, Jennifer Bassett MD at 11/04/2021 8:53 PM Thank you for letting us participate in the care of this patient. ??If you are a health care provider and have any questions regarding this report, please contact the number below. ??For patients who have questions please contact the health home day care provider that requested your imaging first. ? 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 OG tube extends below the diaphragm, tip not imaged. Esophageal temperature probe terminates in the mid esophagus. Right IJ approach PA catheter terminates in the right pulmonary artery. Intra-aortic balloon pump marker is 1.5 cm below the aortic knob. Diffuse hazy retrocardiac opacities silhouetting the left diaphragm may represent a small layering effusion with atelectasis. Right lung is clear. No pleural effusion or pneumothorax. The cardiomediastinal silhouette is partially obscured but grossly stable. Epicardial pacer wires are in place. Normal pulmonary vasculature. No acute osseous findings. 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 OG tube extends below thediaphragm, tip not imaged. Esophageal temperature probe terminates in the mid esophagus.Right IJ approach PA catheter terminates in the right pulmonary artery.Intra-aortic balloon pump marker is 1.5 cm below the aortic knob. Diffuse hazy retrocardiac opacities silhouetting the left diaphragm may represent a small layering effusion with atelectasis. Right lung is clear.No pleural effusion or pneumothorax. The cardiomediastinal silhouette ispartially obscured but grossly stable. Epicardial pacer wires are in place. Normal pulmonary vasculature. No acute osseous findings. IMPRESSION 1. Lines and tubes as above. 2. Small left pleural effusion and left basilar atelectasis, compatiblewith expected postprocedural changes. I have personally reviewed the image(s) and the resident's interpretationand agree with the findings, Jennifer Bassett MD at 11/04/2021 8:53 PM Thank you for letting us participate in the care of this patient. If youare a health care provider and have any questions regarding this report,please contact the number below. For patients who have questions please contactthe health home day care provider that requested your imaging first. Valorie Obrien MD IMG DX ORDERABLES * CARDIAC CATHETERIZATION (11/04/2021 6:30 PM EST) Anatomical Region Laterality Modality Other Narrative 11/06/2021 5:59 AM EST ?[facility] ? Cardiac Catheterization/Intervention Report ? Patient Name: Aniya Lundy. ? Procedure Date: 11/04/2021 ? A #: [id number] ? Primary Physician: Jama Melo ? Case #: [id number] ? File Name: [id number] ? Catheterization Order Number: [id number] ? [facility] ? Final Report [place], [place] ? Patient Name: ? Aniya A. Kamron ?ID#: ?[id number] ? : ?1985 ? Procedure Date: ? November 04, 2021 ? Case #: ? [id number] ? Room: ? 6 ? Case Physician: ? Jama Melo M.D. ? Start: ?16:51 ?Fellow: ? Warren Ball M.D. ?Admission: ??11/04/2021 ? Procedures: ?* Coronary Angiography ?* Insertion Of Flow Directed Catheter ?* Oximetry ?* Venous Line / Sheath Insert ?* Hypothermia Device Placement ?* Intra-Aortic Balloon Pump (IABP) Insertion ?* Access Site Angiography ?* Arterial Blood Gases ?* Vascular Ultrasound ? Pre Case Status: ?These procedures were performed on an emergent basis. ? History ?Aniya TorresJosse Lundy is a 36 year old woman. She has hypertension. The ?patient's smoking status is Current with Current - Every Day frequency, ?using cigarettes. Cigarette use is Light (<10/day). She has a history of ?ventricular tachycardia/ventricular fibrillation. The patient had a ?cardiac arrest. Cardiac arrest occurred at this facility and out of ?hospital. Out of hospital cardiac arrest was witnessed and occurred after ?arrival of EMS. First cardiac arrest rhythm was shockable. Prior to the ?initiation of this procedure, the patient was designated as ASA Class V. ?The CSHA clinical frailty scale is 2: Well. ? Diagnostic Tests: ?Prior Coronary Angiography: ? LV ejection fraction within 6 months is 68%. ?Electrocardiography: ? EKG was assessed by ECG. EKG was Abnormal. EKG showed ventricular ? fibrillation, sustained ventricular tachycardia, newly diagnosed ? non-sustained ventricular tachycardia, ST Deviation >= 0.5 mm, ? dynamic EKG changes and new Antiarrhythmic therapy was administered ? prior to this case. ?Medications Prior to Procedure: ? Antiarrhythmic Agent Other and Aspirin. ? Indications for Diagnostic Cath: ?The priority of the diagnostic procedure was Emergent. The indication for ?the label remover visit is cardiac arrhythmia. Chest pain symptom assessment ?was: Atypical Angina. This patient had cardiovascular instability due to ?ventricular arrhythmias. Ventricular support was supplied with mechanical ?support with Intra-aortic balloon pump (IABP) Inserted during procedure ?and prior to intervention. ? Technique: ?A 7Fr sheath was inserted in the right femoral artery utilizing the ?Seldinger technique. A 9.5Fr sheath was inserted in the right femoral ?vein utilizing the Seldinger technique. A 9Fr sheath was inserted in the ?right internal jugular vein utilizing the Seldinger technique. The left ?coronary artery was injected utilizing a 6Fr JL 4 catheter. A total of ?100cc of Omnipaque were opened, 16cc of Omnipaque were administered and ?84cc of Omnipaque were wasted. Radiation: Fluoro time was 3.9 minutes, ?dose area product was 10,300 mGYcm2 and air kerma was 93 mGY. See the ?case log for additional details. ?Comments: ??7 Fr Maquette IABP placed via RFA using fluoroscopic guidance. ? Appropriate pump function and augmentation of the aortic ? pressure waveform observed. ? 9.5 Fr Quattro central venous cooling catheter placed via RFV ? under fluoroscopic guidance. Distal tip of catheter positioned ? in the IVC just below the diaphragm. Targeted temperative ? management set for 36 degrees C. ?The patient received the following medications prior to and during the ?procedure: ? Unfractionated Heparin. ? Hemodynamics: ?Right Heart Pressures ? Resting: ? Syst Diast ? EDP ?a ?v ? m ?RA ? 10 ?10 ? 9 ?RV 24 ?8 ?PA 21 ?10 ?14 ?PCW ?10 ?13 ? 9 ? Hemodynamic Profile: ?Profile 1 ?CO ? 4.03 ?CI ? 2.29 ?TSR ? 1,350 ?SVR ? 1,171 ?TPR ?278 ?PVR ?99 ?Technique ?Estimated Chris ?Left Heart Pressures ? Resting: ? Syst Diast ? EDP ?a ?v ? m ?Ao 81 ?56 ?68 ? Oximetry: ?Location ? %Sat ?Location ?%Sat ?Superior Vena Cava ? 73.0 ?Main Pulmonary Artery ?? 67.0 ? Coronary Angiography: ?Dominance: Right ?Left Main ? No significant obstructive coronary disease but patient with severe ? spasm after initial contrast injection. ?Left Anterior Descending ? No obstructive disease but significant coronary spasm after initial ? contrast injection. ?Left Circumflex ? No obstructive disease but significant coronary spasm after initial ? contrast injection. ?Right Coronary Artery ? This vessel was not injected. ? Vascular Access: ?Vascular Access Angiogram: ? A selective angiogram at the right femoral artery revealed severe ? spasm of the mid common iliac extending to sheath insertion site in ? the common femoral, near-occlusive. ?Vascular Ultrasound: ? Ultrasound of the right femoral artery was used to guide access and ? showed vessel patent with no disease. Needle entry was observed. ? Point of Care Testing: ?ABG: ? Arterial Blood gasses were performed using the I-Stat analyzer at ? 16:57: pH: 7.38, pCO2: 36.4, pO2: 315.0, sPO2: 100%, HCO3: 21 on ? FIO2: intubated. ?I-Stat: ? I-Stat was performed using the I-Stat analyzer at 16:57: Na+: 140, ? K+: 4.5, Hct: 34%, Hb: 11.6. ? Conclusions: ?* Severe diffuse left coronary spasm with electrical instability. ?* Successful placement of IABP. ?* Successful placement of central venous cooling catheter. ? Complications/Events: ?During this case, the patient had ventricular tachycardia and/or ?ventricular fibrillation. ?After initial injection of contrast of the LCA, patient had increasingly ?elevated ST elevations and widening QRS that eventually degraded into ?multiple episodes of VT/VF requiring multiple defibrillations. ? Comments: ?Patient brought to the label remover due to recurrent VT/VF requiring mutiple ?defibrillations. ST elevations noted on telemetry prior to VT/VF but post ?ACLS ECG showed no evidence of ischemia. On initial femoral angiogram, ?patient noted to have severe iliofemoral spasm. ?Mild luminal irregularities of left coronary seen with initial angiogram, ?with progressive diffuse spasm of LM, LAD and LCX on one additional ?non-selective injection and one final selective injection. Progressive ?QRS widening with ST deviation was seen during these small volume/low ?pressure hand injections and shortly afterwards she developed VT => rapid ?deterioration into VF which responded to a single shock. An electrical ?storm followed with repeat episodes requiring ~8 countershocks, each ?effective in restoring NSR but only temporarily with a persistently wide ?QRS. Lidocaine infusion was added to amiodarone already on board; an IABP ?was placed via the RFA and after this she had no further episodes of VT. ?We elected not to perform angiography of the RCA. ?Ridgeview Jazmin catheter placed via the RIJ with hemodynamics as noted. A ?nitroglycerin infusion was started => MAP then observed to fall ffrom mid ?80s to high 70s, a 250 cc fluid bolus was given. ?Cooling catheter placed via RFV to replace Arctic Sun which had been in ?place on arrival to the lab. ?The attending physician was present for the entire procedure. ?Dr. Jama Melo M.D. performed the coronary angiography, oximetry, access ?site angiography, venous line / sheath insert, IABP insertion in label remover, ?ABG, Ridgeview (flow directed cath) insertion, vascular ultrasound and ?hypothermia device. ? Jama Melo M.D. ? Electronically Signed by: Jama Melo M.D. ? Report Finalized: 11/04/2021 ??19:32 ? Report Last Ammended: 11/12/2021 ??09:10 ? Procedure Note Jama Melo MD - 11/12/2021 [facility] Cardiac Catheterization/Intervention Report Patient Name: Aniya Lundy Procedure Date: 11/04/2021 A #: [id number] Primary Physician: Jama Melo Case #: [id number] File Name: [id number] Catheterization Order Number: [id number] [facility] FinalReport [place], [place] Patient Name: Aniya Lundy ID#:[id number] :1985 Procedure Date: November 04, 2021 Case #: [id number] Room: 6 Case Physician: Jama Melo M.D. Start: 16:51 Fellow: Warren Ball M.D. Admission:11/04/2021 Procedures: * Coronary Angiography * Insertion Of Flow Directed Catheter * Oximetry * Venous Line / Sheath Insert * Hypothermia Device Placement * Intra-Aortic Balloon Pump (IABP) Insertion * Access Site Angiography * Arterial Blood Gases * Vascular Ultrasound Pre Case Status: These procedures were performed on an emergent basis. History Aniya Lundy is a 36 year old woman. She has hypertension. The patient's smoking status is Current with Current - Every Dayfrequency, using cigarettes. Cigarette use is Light (<10/day). She has ahistory of ventricular tachycardia/ventricular fibrillation. The patient had a cardiac arrest. Cardiac arrest occurred at this facility and out of hospital. Out of hospital cardiac arrest was witnessed and occurredafter arrival of EMS. First cardiac arrest rhythm was shockable. Prior tothe initiation of this procedure, the patient was designated as ASAClass V. The [facility] clinical frailty scale is 2: Well. Diagnostic Tests: Prior Coronary Angiography: LV ejection fraction within 6 months is 68%. Electrocardiography: EKG was assessed by ECG. EKG was Abnormal. EKG showedventricular fibrillation, sustained ventricular tachycardia, newlydiagnosed non-sustained ventricular tachycardia, ST Deviation >= 0.5 mm, dynamic EKG changes and new Antiarrhythmic therapy wasadministered prior to this case. Medications Prior to Procedure: Antiarrhythmic Agent Other and Aspirin. Indications for Diagnostic Cath: The priority of the diagnostic procedure was Emergent. Theindication for the label remover visit is cardiac arrhythmia. Chest pain symptomassessment was: Atypical Angina. This patient had cardiovascular instabilitydue to ventricular arrhythmias. Ventricular support was supplied withmechanical support with Intra-aortic balloon pump (IABP) Inserted duringprocedure and prior to intervention. Technique: A 7Fr sheath was inserted in the right femoral artery utilizing the Seldinger technique. A 9.5Fr sheath was inserted in the rightfemoral vein utilizing the Seldinger technique. A 9Fr sheath was inserted inthe right internal jugular vein utilizing the Seldinger technique. Theleft coronary artery was injected utilizing a 6Fr JL 4 catheter. A totalof 100cc of Omnipaque were opened, 16cc of Omnipaque were administeredand 84cc of Omnipaque were wasted. Radiation: Fluoro time was 3.9minutes, dose area product was 10,300 mGYcm2 and air kerma was 93 mGY. Seethe case log for additional details. Comments: 7 Fr Maquette IABP placed via RFA using fluoroscopicguidance. Appropriate pump function and augmentation of the aortic pressure waveform observed. 9.5 Fr Quattro central venous cooling catheter placed viaRFV under fluoroscopic guidance. Distal tip of catheterpositioned in the IVC just below the diaphragm. Targeted temperative management set for 36 degrees C. The patient received the following medications prior to and duringthe procedure: Unfractionated Heparin. Hemodynamics: Right Heart Pressures [...] No significant obstructive coronary disease but patient withsevere spasm after initial contrast injection. Left Anterior Descending No obstructive disease but significant coronary spasm afterinitial contrast injection. Left Circumflex No obstructive disease but significant coronary spasm afterinitial contrast injection. Right Coronary Artery This vessel was not injected. Vascular Access: Vascular Access Angiogram: A selective angiogram at the right femoral artery revealedsevere spasm of the mid common iliac extending to sheath insertionsite in the common femoral, near-occlusive. Vascular Ultrasound: Ultrasound of the right femoral artery was used to guide accessand showed vessel patent with no disease. Needle entry wasobserved. Point of Care Testing: ABG: Arterial Blood gasses were performed using the I-Stat analyzerat 16:57: pH: 7.38, pCO2: 36.4, pO2: 315.0, sPO2: 100%, HCO3: 21on FIO2: intubated. I-Stat: I-Stat was performed using the I-Stat analyzer at 16:57: Na+:140, K+: 4.5, Hct: 34%, Hb: 11.6. Conclusions: * Severe diffuse left coronary spasm with electrical instability. * Successful placement of IABP. * Successful placement of central venous cooling catheter. Complications/Events: During this case, the patient had ventricular tachycardia and/or ventricular fibrillation. After initial injection of contrast of the LCA, patient hadincreasingly elevated ST elevations and widening QRS that eventually degradedinto multiple episodes of VT/VF requiring multiple defibrillations. Comments: Patient brought to the label remover due to recurrent VT/VF requiringmutiple defibrillations. ST elevations noted on telemetry prior to VT/VF butpost ACLS ECG showed no evidence of ischemia. On initial femoralangiogram, patient noted to have severe iliofemoral spasm. Mild luminal irregularities of left coronary seen with initialangiogram, with progressive diffuse spasm of LM, LAD and LCX on one additional non-selective injection and one final selective injection.Progressive QRS widening with ST deviation was seen during these smallvolume/low pressure hand injections and shortly afterwards she developed VT =>rapid deterioration into VF which responded to a single shock. Anelectrical storm followed with repeat episodes requiring ~8 countershocks, each effective in restoring NSR but only temporarily with a persistentlywide QRS. Lidocaine infusion was added to amiodarone already on board; anIABP was placed via the RFA and after this she had no further episodes ofVT. We elected not to perform angiography of the RCA. Ridgeview Jazmin catheter placed via the RIJ with hemodynamics as noted. A nitroglycerin infusion was started => MAP then observed to fallffrom mid 80s to high 70s, a 250 cc fluid bolus was given. Cooling catheter placed via RFV to replace Arctic Sun which had beenin place on arrival to the lab. The attending physician was present for the entire procedure. Dr. Jama Melo M.D. performed the coronary angiography, oximetry,access site angiography, venous line / sheath insert, IABP insertion in cathlab, ABG, Ridgeview (flow directed cath) insertion, vascular ultrasound and hypothermia device. Jama Melo M.D. Electronically Signed by: Jama Melo M.D. Report Finalized: 11/04/2021 19:32 Report Last Ammended: 11/12/2021 09:10 Jama Melo MD CARDIAC CATH ORDERAB LES * (ABNORMAL) Point of Care Blood Gas Historical (11/04/2021 5:57 PM EST) pH, POC 7.39 7.35 - 7.45 [facility] pCO2, POC 36 35 - 45 mmHg [facility] pO2, POC 315(H) 85 - 104 mmHg [facility] Base Excess, POC -3.0 -3.0 - 3.0 mmol/L [facility] Bicarbonate, POC 21.9 20.0 - 26.0 mmol/L [facility] Sodium, POC 140 135 - 145 mmol/L [facility] POC Potassium 4.5 3.5 - 5.0 mmol/L [facility] POC Hematocrit 34.0 34.0 - 45.0 % [facility] POC Calc Hgb 11.6 11.2 - 15.7 g/dL [facility] Comment:The calculation of h emoglobin from hematocrit assumes a normal MCHC. POC Bgas Loc CC LAB [facility] Blood 11/04/2021 5:57 PM EST 11/08/2021 9:00 AM EST Neeraj Pompa MD CHEMISTRY ORDERABLES [facility] [place] [address] * (ABNORMAL) Differential, Automated (11/04/2021 3:30 PM EST) Neutrophil % 80.8 % [facility] Neutrophil Absolute 13.58(H) 1.70 - 6.10 x10(3)/ L [facility] Lymph % 12.3 % [facility] Lymphocytes Abs 2.1 0.9 - 3.2 x10(3)/[facility] Monocyte % 6.0 % [facility] Monocyte Abs 1.0(H) 0.3 - 0.9 x10(3)/ L [facility] Eos % 0.2 % [facility] Eosinophils Abs 0.0 0.0 - 0.4 x10(3)/[facility] Basophil % 0.2 % [facility] Baso Absolute 0.0 0.0 - 0.1 x10(3)/[facility] Immature Gran % 0.50 % [facility] Comment: Immature granulocytes(IG's)percentage and absolute count will include metamyelocytes, myelocytes, and promyelocytes. Blood smears from CBCs yielding IG's will be scanned manually for concordance. If this scan disagrees with the automated IG or if promyelocytes are noted, a manual differential will be performed. Immature Gran Absolute 0.08(H) 0.00 - 0.04 x10(3)/ L [facility] Blood 11/04/2021 3:30 PM EST 11/04/2021 3:59 PM EST Narrative Resulting Agency Comment Spec In Lab Aniya Henry MD HEMATOLOGY ORDERABLE S [facility] [place] [address] * (ABNORMAL) Hemogram (11/04/2021 3:30 PM EST) White Blood Cell 16.8(H) 4.0 - 9.5 x10(3)/mc L [facility] Red Blood Cell 4.23 4.00 - 5.21 x10(6)/mc L [facility] Hemoglobin 11.0(L) 11.7 - 15.5 g/dL [facility] Hematocrit 34.9(L) 35.7 - 45.8 % [facility] Mean Cell Volume 82.5(L) 82.6 - 94.4 fL [facility] Mean Cell Hemoglobin 26.0(L) 27.1 - 32.0 pg [facility] Mean Cell Hemoglobin Concentration 31.5(L) 31.7 - 35.0 g/dL [facility] Platelet 230 145 - 357 x10(3)/mc L [facility] RDW Standard Deviation 49.1(H) 37.0 - 46.0 fL [facility] RDW coefficient of variation 16.6(H) 11.5 - 14.1 % [facility] Mean Platelet Volume 11.9 7.6 - 12.9 fL [facility] NRBC% auto 0.0 % [facility] NRBC Absolute 0.000 0.000 - 0.000 x10(3)/[facility] LABORATORY Blood 11/04/2021 3:30 PM EST 11/04/2021 3:59 PM EST Narrative Resulting Agency Comment Spec In Lab Aniya Henry MD HEMATOLOGY ORDERABLE S [facility] [place] [address] * EKG 12 Lead (11/04/2021 3:23 PM EST) [facility] Ventricular rate 64 BPM MUSE SYSTEM Atrial Rate 64 BPM MUSE SYSTEM P-R Interval 116 ms MUSE SYSTEM QRS Duration 92 ms MUSE SYSTEM Q-T Interval 444 ms MUSE SYSTEM QTC Calculated (Bezet) 458 ms MUSE SYSTEM Calculated P [place] 49 degrees MUSE SYSTEM Calculated R [place] 57 degrees MUSE SYSTEM Calculated T [place] 57 degrees MUSE SYSTEM INTERPRETATION Normal sinus rhythm Nonspecific ST abnormality Abnormal ECG When compared with ECG of 04-NOV-2021 07:37, Vent. rate has decreased BY ??54 BPM Confirmed by MD Levi, [facility] ([id number]) on 11/04/2021 5:21:19 PM MUSE SYSTEM 11/04/2021 3:23 PM EST 11/04/2021 5:21 PM EST Valorie Obrien MD ECG ORDERABLES Performing Organization Address [facility] Co de Phone Number MUSE SYSTEM * POCT Glucose (11/04/2021 2:54 PM EST) [facility] Glucose, POC 94 65 - 199 mg/dL [facility] Comment: Supplemental ranges: <140 mg/dL before meals <180 mg/dL all other times of the day Blood 11/04/2021 2:54 PM EST 11/04/2021 2:54 PM EST Valorie Obrien MD POINT OF CARE TEST O RDERABLES Performing Organization Address [facility] Co de Phone Number [facility] [place] [address] * (ABNORMAL) Troponin (11/04/2021 1:00 PM EST) [facility] Troponin-T 0.24(H) 0.00 - 0.00 ng/mL [facility] Comment: Called by: , Read back by: Tio Cuevas, Date/Time:11/04/21 13:49. The 99th percentile for Troponin T is less than 0.01 ng/mL, any detectable cTnT concentration using this assay should be considered elevated. According to the third universal definition of myocardial infarction the following criteria with a clinical presentation consistent with acute myocardial ischemia meets the diagnosis for a myocardial infarction (PR). Detection of a rise and/or fall of cTnT, with at least one value greater than the 99th percentile (> or = 0.01) and with at least one of the following ?? Symptoms of ischemia ?? New or presumed new significant WL-cdhycje-H wave (ST-T) changes or new left bundle [...] additional sample may be indicated. Reference: Third [place] Definition of Myocardial Infarction. Journal of the [place] [employer] 2012;60:1581-98 Blood 11/04/2021 1:00 PM EST 11/04/2021 1:13 PM EST Narrative Resulting Agency Comment Spec In Lab Valorie Obrien MD CHEMISTRY ORDERABLES [facility] [place] [address] * (ABNORMAL) BLOOD GAS 2 ARTERIAL (11/04/2021 12:57 PM EST) pH, Arterial 7.36 7.35 - 7.45 [facility] PCO2, Arterial 37 35 - 45 mmHg [facility] PO2, Arterial 187(H) 85 - 104 mmHg [facility] Bicarbonate, Arterial 20.4 20.0 - 26.0 mmol/L [facility] Base Excess, Arterial -5.1(L) -3.0 - 3.0 mmol/L [facility] Hgb Blood Gas 12.0 11.7 - 15.5 g/dL [facility] Oxyhemoglobin, Arterial 97.4(H) 94.0 - 97.0 % [facility] Carboxyhemoglob in, Arterial 0.3 % [facility] Comment: Nonsmokers: 0.5-1.5% COHB Smokers: Variable, but usually less than 10% Toxic: 20-30% COHB Lethal: Greater than 60% COHB Methemoglobin, Arterial 0.5 <=1.5 % [facility] Na Whole Blood 138 135 - 145 mmol/L [facility] K Whole Blood 5.0 3.5 - 5.0 mmol/L [facility] Comment: Please note: Patients with WBC >100,000 may have falsely elevated Potassium levels. Contact the Clinical Chemistry Laboratory if there are any questions. ICa Whole Blood 1.12(L) 1.15 - 1.33 mmol/L [facility] Comment: Note: ??Total bilirubin higher than 20 mg/dL may lead to falsely low ionized calcium. CL Whole Blood 107 98 - 107 mmol/L [facility] Gluc Whole Bld 92 65 - 199 mg/dL [facility] Comment:Diabetes: >=200 mg/d L plus symptoms. Lactate WB 1.1 0.5 - 2.2 mmol/L [facility] Blood 11/04/2021 12:5 7 PM EST 11/04/2021 12:57 PM EST Valorie Obrien MD POINT OF CARE TEST O RDERABLES Performing Organization Address City/State/[facility] Co de Phone Number [facility] [place] [address] * ECHO LMTD W/O CONTRAST W LMTD SPEC DOPP COLOR DOPP (11/04/2021 12:12 PM EST) EF 68 [facility] SYSTEM Anatomical Region Laterality Modality Other 11/04/2021 Narrative 11/04/2021 12:58 PM EST Procedure: ?Transthoracic Echocardiogram Patient: ?KAMRON Torres ?(Age): 1985(36y) Med Rec#: ? [id number] ?Sex: ?F ? Site Loc: ? [facility] ?Ht / Wt: ??163(cm)/70(kg) Pt. Loc: ?ED ?BSA: ?1.76 Study Date: ?? 11/04/2021 ?Pt. Type: Inpatient Tape: ? Referring: Horace Nielsen Referring: Uday Alves ([id number]) Reading: Noah Moreira ??([id number]) Jalousies Installer: Gunnar Castañeda [facility] Diagnosis: *Cardiac arrest, cause unspecified (I46.9) * COVID Protocol BP: ? 116/61 SUMMARY: 1. The left ventricular chamber size is [...] dated 07/04/16, there is no significant change. Findings ? : Study Quality: ? Adequate Left Ventricle: ? The left ventricular chamber size is normal. ?Left ventricular wall thickness is normal. ?There is normal global left ventricular systolic function. ?The quantitative left ventricular ejection fraction by biplane Redman's method is 68%. ?There are no left ventricular segmental wall motion abnormalities. ?Left ventricular diastolic function is normal. ?Doppler assessment is consistent with normal left sided filling pressure. Left Atrium: ? The left atrium is normal in size. Right Ventricle: ? Right ventricular chamber size, wall thickness, and systolic function are within normal limits. RVFWS -26.8%, GS -23.1% on GE E95. ?The estimated pulmonary artery systolic pressure is 17 mmHg. Plus RAP. Right Atrium: ? The right atrium is probably normal in size. Aortic Valve: ? The aortic valve is trileaflet. The leaflets are thin with normal excursion. There is no aortic stenosis or regurgitation present. Mitral Valve: ? The mitral valve appears normal in structure and function. ?There is trace mitral regurgitation present. Tricuspid Valve: ? The tricuspid valve leaflets are morphologically normal. ?There is trace tricuspid regurgitation present. Pericardium: ? There is no pericardial effusion. Misc: ? The cardiac valves appear structurally and functionally normal. ?See remainder of report for additional findings. ?Two-dimensional echo, limited spectral Doppler and color Doppler performed. ?ALPHONSO performed ?Myocardial Strain Imaging Chambers 2D ?Value ?Units (Range) ? IVSd (2D) ? 1.11 ? cm ? LVPWd (2D) ?0.95 ? cm ? IVS:LVPW ratio (2D) 1.16 ? ratio ? RWT (2D) ?0.49 ? ratio ? RWT PW (2D) ? 0.45 ? ratio ? LVIDd (2D) ?4.18 ? cm ? LVIDs (2D) ?3.45 ? cm ? LVIDd (2D) index ?2.38 ? cm/m2 ? LVIDs (2D) index ?1.96 ? cm/m2 ? LV FS (2D) ?17.6 ? % ? EF Teichholz (2D) ?? 37 ? % ? Volumes/Mass ?Value ?Units (Range) ? LA Area 4 CH ?13.5 ? cm2 (<21) ? LA ESV BP (A/L) inde24.36 ?ml/m2 ? RA AREA 4CH ? 12.6 ? cm2 ? LV ESV SP 4CH (MOD) 30.42 ?ml ? LV ESV SP 2CH (MOD) 30.25 ?ml ? LV EDV BP ? 99.6 ? ml ? LV ESV BP ? 31.52 ?ml ? LV EDV BP index ? 56.74 ?ml/m2 ? LV ESV BP index ? 17.95 ?ml/m2 ? BP EF (MOD) ? 68.36 ?% ? LV mass (2D) ?141.94 ? g ? LV mass (2D) index ??80.86 ?g/m2 ? Diastolic/Systolic Function ?Value ?Units (Range) ? MV E-wave Vmax ?0.73 ? m/sec ? MV deceleration ojen879.12 ? msec ? MV A-wave Vmax ?0.76 ? m/sec ? MV E:A ratio ?0.97 ? ratio ? LV septal e' Vmax ?? 0.1 ?m/sec ? LV lateral e' Vmax ??0.12 ? m/sec ? LV average e' Vmax ??0.11 ? m/sec ? LV E:e' septal ratio7.35 ? ratio ? LV E:e' lateral rati6.12 ? ratio ? LV average E:e' rati6.68 ? ratio ? Tricuspid Valve ?Value ?Units (Range) ? TR Vmax ? 2.09 ? m/sec ? TR peak gradient ?17.39 ?mmHg ? RVSP ?17 ? mmHg ? This report has been electronically signed by: Noah Moreira MD ? 11/04/2021 12:58:08 Images reviewed and interpretation verified [facility] Procedure Note Noah Moerira MD - 11/04/2021 Procedure: Transthoracic Echocardiogram Patient: KAMRON Torres DOB(Age): 1985(36y) Med Rec#: [id number] Sex: F Site Loc: [facility] Ht / Wt: 163(cm)/70(kg) Pt. Loc: ED BSA: 1.76 Study Date: 11/04/2021 Pt. Type: Inpatient Tape: Referring: Horace Nielsen Referring: Uday Alves ([id number]) Reading: Noah Moreira ([id number]) Jalousies Installer: Gunnar Castañeda [facility] Diagnosis: *Cardiac arrest, cause unspecified (I46.9) * COVID Protocol BP: 116/61 SUMMARY: 1. The left ventricular chamber size is [...] dated 07/04/16, there is no significant change. Findings : Study Quality: Adequate Left Ventricle: The left ventricular chamber size is normal. Left ventricular wall thickness is normal. There is normal global left ventricular systolic function. The quantitative left ventricular ejection fraction by biplane Redman's method is 68%. There are no left ventricular segmental wall motion abnormalities. Left ventricular diastolic function is normal. Doppler assessment is consistent with normal left sided filling pressure. Left Atrium: The left atrium is normal in size. Right Ventricle: Right ventricular chamber size, wall thickness, and systolic function are within normal limits. RVFWS -26.8%, GS -23.1% on GE E95. The estimated pulmonary artery systolic pressure is 17 mmHg. Plus RAP. Right Atrium: The right atrium is probably normal in size. Aortic Valve: The aortic valve is trileaflet. The leaflets are thin with normal excursion. There is no aortic stenosis or regurgitation present. Mitral Valve: The mitral valve appears normal in structure and function. There is trace mitral regurgitation present. Tricuspid Valve: The tricuspid valve leaflets are morphologically normal. There is trace tricuspid regurgitation present. Pericardium: There is no pericardial effusion. Misc: The cardiac valves appear structurally and functionally normal. See remainder of report for additional findings. Two-dimensional echo, limited spectral Doppler and color Doppler performed. ALPHONSO performed Myocardial Strain Imaging Chambers 2D Value Units (Range) IVSd (2D) 1.11 cm LVPWd (2D) 0.95 cm IVS:LVPW ratio (2D) 1.16 ratio RWT (2D) 0.49 ratio RWT PW (2D) 0.45 ratio LVIDd (2D) 4.18 cm LVIDs (2D) 3.45 cm LVIDd (2D) index 2.38 cm/m2 LVIDs (2D) index 1.96 cm/m2 LV FS (2D) 17.6 % EF Teichholz (2D) 37 % Volumes/Mass Value Units (Range) LA Area 4 CH 13.5 cm2 (<21) LA ESV BP (A/L) inde24.36 ml/m2 RA AREA 4CH 12.6 cm2 LV ESV SP 4CH (MOD) 30.42 ml LV ESV SP 2CH (MOD) 30.25 ml LV EDV BP 99.6 ml LV ESV BP 31.52 ml LV EDV BP index 56.74 ml/m2 LV ESV BP index 17.95 ml/m2 BP EF (MOD) 68.36 % LV mass (2D) 141.94 g LV mass (2D) index 80.86 g/m2 Diastolic/Systolic Function Value Units (Range) MV E-wave Vmax 0.73 m/sec MV deceleration ftof770.12 msec MV A-wave Vmax 0.76 m/sec MV E:A ratio 0.97 ratio LV septal e' Vmax 0.1 m/sec LV lateral e' Vmax 0.12 m/sec LV average e' Vmax 0.11 m/sec LV E:e' septal ratio7.35 ratio LV E:e' lateral rati6.12 ratio LV average E:e' rati6.68 ratio Tricuspid Valve Value Units (Range) TR Vmax 2.09 m/sec TR peak gradient 17.39 mmHg RVSP 17 mmHg This report has been electronically signed by: Noah Moreira MD 11/04/2021 12:58:08 Images reviewed and interpretation verified [facility] Horace Nielsen MD ECHO ORDERABLES * Intubation (11/04/2021 10:51 AM EST) Narrative Horace Nielsen MD - 11/04/2021 10:51 AM EST Dudley Owens MD ? 11/04/2021 10:55 AM Intubation Date/Time: 11/04/2021 10:51 AM Performed by: Dudley Owens MD Authorized by: Yohannes Dhillon MD [place] Protocol: ??Emergent situation ?Patient identity confirmed: ??Arm band ??Time out: Immediately prior to the procedure a time out was called ?? A time out verifies correct patient, procedure, equipment, pc support specialist and site/side marked as required: Indications: ??Indications: ??Airway protection Procedure Details: ??Intubation method: ??Video-assisted ??Patient status: ??Paralyzed (RSI) ??Preoxygenation: ??Nonrebreather mask Selections made in this section will lock the Intubation Method section above.: ??Pretreatment meds: ??Fentanyl ??Ultrasound Guidance: No ?Sedation: ??Etomidate ??Paralytic: ??Rocuronium ??Laryngoscope size: ??Mac 3 ??Tube size (mm): ??7.5 ??Tube type: ??Cuffed ??Number of attempts: ??1 ??Cricoid pressure: No ?Cords visualized: Yes ?Post-procedure assessment: ??Chest rise and ETCO2 monitor ??Breath sounds: ??Equal ??Cuff inflated: Yes ?ETT to lip (cm): ??24 ??ETT to teeth (cm): ??23 ??Tube secured with: ??ETT lynch ??Chest x-ray interpreted by: ??Radiologist ??Chest x-ray findings: ??Endotracheal tube in appropriate position ?? patient tolerated the procedure well with no immediate complications Yohannes Dhillon MD ED ORDERABLES W LINK ED PERFS * Arterial Line (11/04/2021 10:42 AM EST) Narrative Horace Nielsen MD - 11/04/2021 10:42 AM EST Dudley Owens MD ? 11/04/2021 10:55 AM Arterial Line Date/Time: 11/04/2021 10:42 AM Performed by: Dudley Owens MD Authorized by: Horace Nielsen MD [place] Protocol: ??Emergent situation ?Patient identity confirmed: ??Arm band ??Time out: Immediately prior to the procedure a time out was called ?? A time out verifies correct patient, procedure, equipment, pc support specialist and site/side marked as required: Preparation: ??Preparation: Patient was prepped and draped in usual sterile fashion ?? Indications: ??Indications: hemodynamic monitoring ?? Location: ??Location: ??Right radial Procedure Details: ??Ultrasound Guidance: Yes ?Needle gauge: ??20 ??Seldinger technique: Seldinger technique used ?Number of attempts: ??1 Post-procedure: ??Post-procedure: ??Dressing applied ?? patient tolerated the procedure well with no immediate complications Horace Nielsen MD ED ORDERABLES W LI NKED PERFS * XR Abdomen 1 view (Generic) (11/04/2021 10:09 AM EST) Anatomical Region Laterality Modality Abdomen N/A Digital Radiogra phy Impressions 11/04/2021 10:17 AM EST Orogastric tube placement, as above. Thank you for letting us participate in the care of this patient. ??If you are a health care provider and have any questions regarding this report, please contact the number below. ??For patients who have questions please contact the health home day care provider that requested your imaging first. ? Narrative 11/04/2021 10:17 AM EST EXAMINATION: XR ABDOMEN 1 VIEW (GENERIC) CLINICAL HISTORY: OG placement; check tube placenment TECHNIQUE: 1 view of the chest and abdomen. COMPARISON: CT abdomen pelvis dated 07/28/2021. FINDINGS: Orogastric tube terminates approximately 13 cm below the GE junction, with the side-port approximately 6 cm below the GE junction. Defibrillator leads overlie the chest. Enteric tube terminates over the mid trachea. No pleural effusion, focal consolidation, or pneumothorax. No obstructive bowel gas pattern. Procedure Note Jim Carl MD - 11/04/2021 EXAMINATION: XR ABDOMEN 1 VIEW (GENERIC) CLINICAL HISTORY: OG placement; check tube placenment TECHNIQUE: 1 view of the chest and abdomen. COMPARISON: CT abdomen pelvis dated 07/28/2021. FINDINGS: Orogastric tube terminates approximately 13 cm below the GE junction, withthe side-port approximately 6 cm below the GE junction. Defibrillator leadsoverlie the chest. Enteric tube terminates over the mid trachea. No pleural effusion, focal consolidation, or pneumothorax. No obstructive bowel gas pattern. IMPRESSION Orogastric tube placement, as above. Thank you for letting us participate in the care of this patient. If youare a health care provider and have any questions regarding this report,please contact the number below. For patients who have questions please contactthe health home day care provider that requested your imaging first. Horace Nielsen MD IMG DX ORDERABLES * XR Chest One View (11/04/2021 10:09 AM EST) Anatomical Region Laterality Modality Chest N/A Digital Radiogra phy Impressions 11/04/2021 10:18 AM EST Endotracheal tube terminates over the mid trachea. Thank you for letting us participate in the care of this patient. ??If you are a health care provider and have any questions regarding this report, please contact the number below. ??For patients who have questions please contact the health home day care provider that requested your imaging first. ? Narrative 11/04/2021 10:18 AM EST EXAMINATION: XR CHEST ONE VIEW CLINICAL HISTORY: Intubation; check tube placement TECHNIQUE: 1 view of the chest COMPARISON: Chest x-ray dated 10/12/2021. FINDINGS: Endotracheal tube terminates within the trachea. Enteric tube courses below the inferior margin of the radiograph. Defibrillator leads overlie the chest. No pleural effusion, focal consolidation, or pneumothorax. Procedure Note Jim Carl MD - 11/04/2021 EXAMINATION: XR CHEST ONE VIEW CLINICAL HISTORY: Intubation; check tube placement TECHNIQUE: 1 view of the chest COMPARISON: Chest x-ray dated 10/12/2021. FINDINGS: Endotracheal tube terminates within the trachea. Enteric tube coursesbelow the inferior margin of the radiograph. Defibrillator leads overlie thechest. No pleural effusion, focal consolidation, or pneumothorax. IMPRESSION Endotracheal tube terminates over the mid trachea. Thank you for letting us participate in the care of this patient. If youare a health care provider and have any questions regarding this report,please contact the number below. For patients who have questions please contactthe health home day care provider that requested your imaging first. Horace Nielsen MD IMG DX ORDERABLES * CT Angiogram Chest for Pulmonary Embolus w Contrast (11/04/2021 9:37 AM EST) Anatomical Region Laterality Modality Chest Computed Tomogra phy 11/04/2021 9:42 AM EST Impressions 11/04/2021 9:52 AM EST 1. ??No pulmonary embolism identified. 2. ??Bibasilar atelectasis, particularly on the left where there is collapse of much of the left lower lobe. 3. ??Hazy opacities within the inferior left upper lobe are nonspecific and may be infectious or traumatic in nature. 4. ??Motion artifact or nondisplaced fracture of the mid sternum. Motion artifact is favored. Recommend clinical correlation. Thank you for letting us participate in the care of this patient. ??If you are a health care provider and have any questions regarding this report, please contact the number below. ??For patients who have questions please contact the health home day care provider that requested your imaging first. ? Narrative 11/04/2021 9:52 AM EST EXAMINATION: CTA CHEST PULMONARY EMBOLISM W CONTRAST CLINICAL HISTORY: PE suspected, high pretest prob cardiac arrest, x1 shock, now intubated, elevated d-dimer, does have JENNIFER post arrest TECHNIQUE: 3 mm thick axial contiguous sections were obtained through the chest via helical acquisition after the intravenous administration of contrast, Administered 75.0 ml of VISIPAQUE 320.00 mg/ml. Thin-section reconstructions as well as coronal and sagittal MIP reformatted images were generated to aid in evaluation. COMPARISON: Chest CT dated 08/26/2018. FINDINGS: Pulmonary arteries: No pulmonary arterial filling defects. Other cardiovascular structures: No significant findings. Pulmonary parenchyma: Large degree of atelectasis within the left lower lobe. Dependent opacities within the right lung base, presumably atelectatic. Hazy opacities within the inferior left lower lobe. Paraseptal emphysema the right apex. Airways: Endotracheal tube terminates in the mid trachea. Pleura: No significant findings. Lymph nodes: No significant findings. Other mediastinal structures: Enteric tube courses through the esophagus, into the stomach, below the inferior margin of the CT. Upper abdomen: No significant findings. Skeletal structures: Nondisplaced acute fracture of the mid sternum versus motion artifact. Procedure Note Jim Carl MD - 11/04/2021 EXAMINATION: CTA CHEST PULMONARY EMBOLISM W CONTRAST CLINICAL HISTORY: PE suspected, high pretest prob cardiac arrest, x1 shock, now intubated, elevated d-dimer, does have AKIpost arrest TECHNIQUE: 3 mm thick axial contiguous sections were obtained through thechest via helical acquisition after the intravenous administration ofcontrast, Administered 75.0 ml of VISIPAQUE 320.00 mg/ml. Thin-sectionreconstructions as well as coronal and sagittal MIP reformatted images were generated to aidin evaluation. COMPARISON: Chest CT dated 08/26/2018. FINDINGS: Pulmonary arteries: No pulmonary arterial filling defects. Other cardiovascular structures: No significant findings. Pulmonary parenchyma: Large degree of atelectasis within the left lowerlobe. Dependent opacities within the right lung base, presumably atelectatic.Hazy opacities within the inferior left lower lobe. Paraseptal emphysema theright apex. Airways: Endotracheal tube terminates in the mid trachea. Pleura: No significant findings. Lymph nodes: No significant findings. Other mediastinal structures: Enteric tube courses through the esophagus,into the stomach, below the inferior margin of the CT. Upper abdomen: No significant findings. Skeletal structures: Nondisplaced acute fracture of the mid sternumversus motion artifact. IMPRESSION 1. No pulmonary embolism identified. 2. Bibasilar atelectasis, particularly on the left where there iscollapse of much of the left lower lobe. 3. Hazy opacities within the inferior left upper lobe are nonspecific andmay be infectious or traumatic in nature. 4. Motion artifact or nondisplaced fracture of the mid sternum. Motionartifact is favored. Recommend clinical correlation. Thank you for letting us participate in the care of this patient. If youare a health care provider and have any questions regarding this report,please contact the number below. For patients who have questions please contactthe health home day care provider that requested your imaging first. Horace Nielsen MD IMG CT ORDERABLES * CT Head wo Contrast (Generic) (11/04/2021 9:37 AM EST) Anatomical Region Laterality Modality Head Computed Tomogra phy 11/04/2021 9:37 AM EST Impressions 11/04/2021 9:55 AM EST Diffuse cerebral edema consistent with the history. I have personally reviewed the image(s) and the resident's interpretation and agree with the findings, Alejo Garcia MD at 11/04/2021 9:55 AM Thank you for letting us participate in the care of this patient. ??If you are a health care provider and have any questions regarding this report, please contact the number below. ??For patients who have questions please contact the health home day care provider that requested your imaging first. ? Narrative 11/04/2021 9:55 AM EST EXAMINATION: CT HEAD WO CONTRAST (GENERIC) CLINICAL HISTORY: Altered mental status out of hospital cardiac arrest, history of HTN, altered and intubated on arrival. TECHNIQUE: CT head performed without intravenous contrast administration. COMPARISON: CT face 05/08/2020 FINDINGS: No acute hemorrhage. Diffuse cerebral edema with effacement of sulci. Mild mass effect on the suprasellar cistern. Normal ventricles. Calvarium and extra calvarial soft tissues are unremarkable.. Procedure Note Alejo Garcia MD - 11/04/2021 EXAMINATION: CT HEAD WO CONTRAST (GENERIC) CLINICAL HISTORY: Altered mental status out of hospital cardiac arrest, history of HTN, altered and intubated on arrival. TECHNIQUE: CT head performed without intravenous contrast administration. COMPARISON: CT face 05/08/2020 FINDINGS: No acute hemorrhage. Diffuse cerebral edema with effacement of sulci. Mildmass effect on the suprasellar cistern. Normal ventricles. Calvarium and extra calvarial soft tissues are unremarkable.. IMPRESSION Diffuse cerebral edema consistent with the history. I have personally reviewed the image(s) and the resident's interpretationand agree with the findings, Alejo Garcia MD at 11/04/2021 9:55 AM Thank you for letting us participate in the care of this patient. If youare a health care provider and have any questions regarding this report,please contact the number below. For patients who have questions please contactthe health home day care provider that requested your imaging first. Horace Nielsen MD IMG CT ORDERABLES * (ABNORMAL) BLOOD GAS 2 ARTERIAL (11/04/2021 8:43 AM EST) pH, Arterial 7.23(Crit ical) 7.35 - 7.45 [facility] Comment: Critical notified to Dr. Maria Luz Dong by medical or surgical instrument maker immediately following run time. PCO2, Arterial 44 35 - 45 mmHg [facility] PO2, Arterial 199(H) 85 - 104 mmHg [facility] Bicarbonate, Arterial 18.1(L) 20.0 - 26.0 mmol/L [facility] Base Excess, Arterial -9.4(L) -3.0 - 3.0 mmol/L [facility] Hgb Blood Gas 11.8 11.7 - 15.5 g/dL [facility] Oxyhemoglobin, Arterial 97.3(H) 94.0 - 97.0 % [facility] Carboxyhemoglobi n, Arterial 0.3 % [facility] Comment: Nonsmokers: 0.5-1.5% COHB Smokers: Variable, but usually less than 10% Toxic: 20-30% COHB Lethal: Greater than 60% COHB Methemoglobin, Arterial 0.6 <=1.5 % [facility] Na Whole Blood 139 135 - 145 mmol/L [facility] K Whole Blood 4.0 3.5 - 5.0 mmol/L [facility] Comment: Please note: Patients with WBC >100,000 may have falsely elevated Potassium levels. Contact the Clinical Chemistry Laboratory if there are any questions. ICa Whole Blood 1.11(L) 1.15 - 1.33 mmol/L [facility] Comment: Note: ??Total bilirubin higher than 20 mg/dL may lead to falsely low ionized calcium. CL Whole Blood 108(H) 98 - 107 mmol/L [facility] Gluc Whole Bld 128 65 - 199 mg/dL [facility] Comment:Diabetes: >=200 mg/d L plus symptoms. Lactate WB 2.2 0.5 - 2.2 mmol/L [facility] Blood 11/04/2021 8:43 AM EST 11/04/2021 8:43 AM EST Horace Nielsen MD POINT OF CARE TEST ORDERABLES [facility] [place] [address] * (ABNORMAL) Urinalysis Microscopic Exam (11/04/2021 8:40 AM EST) RBC, Urine 1 0 - 4 /HPF [facility] WBC, Urine 2 0 - 5 /HPF [facility] Squamous Epithelial Cells Raw Data, Urine 4 <=4 /HPF [facility] Hyaline Casts, Urine 7(H) 0 - 2 /LPF [facility] Indwelling Catheter Urine 11/04/2021 8:40 AM EST 11/04/2021 9:06 AM EST Narrative Resulting Agency Comment Spec In Lab Horace Nielsen MD URINE ORDERABLES [facility] [place] [address] * (ABNORMAL) Rapid Drug Screen w/o Confirmation, Urine (11/04/2021 8:40 AM EST) Barbiturates Screen, Urine None Detected None Detected [facility] Comment: The barbiturate screen detects barbiturates at concentrations >200 ng/mL. Note: Not all barbiturates cross-react equally with antibody used in this screen. A ? Presumptive Positive? result indicates that the screening result was positive but has not yet been confirmed by a highly-specific method. As with any screen, occasional false positive results from cross-reacting substances may occur. Not for Medico-Legal Purposes. Benzodiazepines Screen, Urine Presumptive Pos(A) None Detected [facility] Comment: The benzodiazepines screen detects benzodiazepines at concentrations >100 ng/mL. Not all benzodiazepines cross-react equally with antibody used in this screen. Due to the low dosage of clonazepam, false negatives may be obtained due to low concentration of clonazepam metabolites. A ? Presumptive Positive? result indicates that the screening result was positive but has not yet been confirmed by a highly-specific method. As with any screen, occasional false positive results from cross-reacting substances may occur. Not for Medico-Legal Purposes. Cocaine Screen, Urine None Detected None Detected [facility] Comment: The cocaine metabolites screen detects benzoylecgonine (Cocaine Metabolite) at concentrations >150 ng/mL. A ? Presumptive Positive? result indicates that the screening result was positive but has not yet been confirmed by a highly-specific method. As with any screen, occasional false positive results from cross-reacting substances may occur. Not for Medico-Legal Purposes. Methadone Metabolites Screen, Urine None Detected None Detected [facility] Comment: The methadone metabolite screen detects EDDP (major methadone metabolite) at concentrations >100 ng/mL. A ? Presumptive Positive? result indicates that the screening result was positive but has not yet been confirmed by a highly-specific method. As with any screen, occasional false positive results from cross-reacting substances may occur. Not for Medico-Legal Purposes. Opiate Screen, Urine None Detected None Detected [facility] Comment: The opiates screen detects opiates at concentrations >300 ng/mL. Please note that oxycodone, oxymorphone, fentanyl, tramadol, and other synthetic opioids are not detected by the opiate screen. A ? Presumptive Positive? result indicates that the screening result was positive but has not yet been confirmed by a highly-specific method. As with any screen, occasional false positive results from cross-reacting substances may occur. Not for Medico-Legal Purposes. Cannabinoid Screen, Urine None Detected None Detected [facility] Comment: The marijuana metabolites screen detects the THC metabolite (34-rrx-6-carboxy-delta 9-THC) at concentrations >20 ng/mL. A ? Presumptive Positive? result indicates that the screening result was positive but has not yet been confirmed by a highly-specific method. As with any screen, occasional false positive results from cross-reacting substances may occur. Not for Medico-Legal Purposes. Oxycodone Screen, Urine None Detected None Detected [facility] Comment: The oxycodone screen detects oxycodone and oxymorphone at concentrations >100 ng/mL. A ? Presumptive Positive? result indicates that the screening result was positive but has not yet been confirmed by a highly-specific method. As with any screen, occasional false positive results from cross-reacting substances may occur. Not for Medico-Legal Purposes. Buprenorphine Screen, Urine None Detected None Detected [facility] Comment: The buprenorphine screen detects buprenorphine at concentrations >5 ng/mL. A ? Presumptive Positive? result indicates that the screening result was positive but has not yet been confirmed by a highly-specific method. As with any screen, occasional false positive results from cross-reacting substances may occur. Not for Medico-Legal Purposes. Fentanyl Screen, Urine None Detected None Detected [facility] Comment: The fentanyl screen detects fentanyl at concentrations >2 ng/mL. A ? Presumptive Positive? result indicates that the screening result was positive but has not yet been confirmed by a highly-specific method. As with any screen, occasional false positive results from cross-reacting substances may occur. Not for Medico-Legal Purposes. Tricyclics Screen, Urine None Detected None Detected [facility] Comment: The tricyclics screen detects tricyclic antidepressants at concentrations >150 ng/mL. Not all tricyclics cross-react equally with the antibody used in this screen. A ? Presumptive Positive? result indicates that the screening result was positive but has not yet been confirmed by a highly-specific method. As with any screen, occasional false positive results from cross-reacting substances may occur. Not for Medico-Legal Purposes. Ethanol Screen, Urine None Detected None Detected [facility] Comment:This urine ethanol a ssay detects ethanol at concentrations >/= 100 mg/L. Amphetamines Screen, Urine None Detected None Detected [facility] Comment: The amphetamine screen detects d-amphetamine and d-methamphetamine at concentrations >300 ng/mL. A ? Presumptive Positive? result indicates that the screening result was positive but has not yet been confirmed by a highly-specific method. As with any screen, occasional false positive results from cross-reacting substances may occur. Not for Medico-Legal Purposes. Adulterants Screen, Urine None Detected None Detected [facility] Comment: No adulteration or dilution of this urine sample was detected. All urine samples submitted for urine drugs of abuse analysis are tested for creatinine concentration, pH, and for the presence of oxidants, nitrites, and chromate. Urine 11/04/2021 8:40 AM EST 11/04/2021 9:06 AM EST Narrative Resulting Agency Comment Spec In Lab Horace Nielsen MD CHEMISTRY ORDERABL ES Performing Organization Address City/[facility]/ZIP Co de Phone Number [facility] [place] [address] * (ABNORMAL) Urinalysis with reflex Culture (11/04/2021 8:40 AM EST) Glucose, Urine Dipstick Negative Negative mg/dL [facility] Protein, Urine Dipstick 100(A) Negative mg/dL [facility] Bilirubin, Urine Dipstick Negative Negative mg/dL [facility] Comment: Clinical correlation required for positive Urine Bilirubin results as false positive may occur with some drugs and drug related products. If a false positive is suspected a serum total bilirubin should be considered if clinically indicated. Urobilinogen, Urine Dipstick Normal Normal mg/dL [facility] pH, Urn (dipstick) 6.5 5.0 - 8.0 [facility] Blood, Urine Dipstick Trace(A) Negative mg/dL [facility] Ketone, Urine Dipstick Negative Negative mg/dL [facility] Nitrite, Urine Dipstick Negative Negative [facility] Leukocytes, Urine Dipstick Negative Negative [facility] Appearance, Urine Dipstick Clear Clear [facility] Specific [place] Urine Automated 1.020 1.005 - 1.030 [facility] Color, Urine Dipstick Yellow Yellow [facility] Reflex to Culture No [facility] Indwelling Catheter Urine 11/04/2021 8:40 AM EST 11/04/2021 9:06 AM EST Narrative Resulting Agency Comment Spec In Lab Horace Nielsen MD URINE ORDERABLES [facility] [place] [address] * POCT urine (11/04/2021 8:40 AM EST) POC Urine HCG Negative Negative - Negative POC Control Internal Controls Acceptable 11/04/2021 8:40 AM EST Horace Nielsen MD POINT OF CARE TEST ORDERABLES * Rapid Drug Screen, Urine (DAVID Request) (11/04/2021 8:40 AM EST) DAVID Conf Requested No [facility] Comment: Collection date/time has been modified to: 08:40:00. ??Previous collection date/time: 07:37:00. Corrected from No [NA] on 11/04/21 9:06:46 EST by Horace Jaramillo Requested See Comment [facility] Comment: Refer to Rapid Drug Screen w/o Confirmation, Urine for results. Collection date/time has been modified to: 08:40:00. ??Previous collection date/time: 07:37:00. Corrected from See Comment [NA] on 11/04/21 9:06:46 EST by Horace Jaramillo Urine 11/04/2021 8:40 AM EST 11/04/2021 9:06 AM EST Narrative Resulting Agency Comment Spec In Lab Horace Nielsen MD URINE ORDERABLES [facility] [place] [address] * EKG 12 Lead (11/04/2021 7:37 AM EST) Ventricular rate 118 BPM MUSE SYSTEM Atrial Rate 118 BPM MUSE SYSTEM P-R Interval 134 ms MUSE SYSTEM QRS Duration 86 ms MUSE SYSTEM Q-T Interval 346 ms MUSE SYSTEM QTC Calculated (Bezet) 484 ms MUSE SYSTEM Calculated P [place] 43 degrees MUSE SYSTEM Calculated R [place] 32 degrees MUSE SYSTEM Calculated T [place] 25 degrees MUSE SYSTEM INTERPRETATION Sinus tachycardia Otherwise normal ECG When compared with ECG of 10-OCT-2021 17:09, Left posterior fascicular block is no longer Present Confirmed by MD Elicia, Bertin ([id number]) on 11/06/2021 9:27:47 PM MUSE SYSTEM 11/04/2021 7:37 AM EST 11/06/2021 9:27 PM EST Unknown ECG ORDERABLES MUSE SYSTEM * CK (11/04/2021 7:35 AM EST) Creatine Kinase 135 0 - 160 unit/L [facility] Blood Venous Draw / Unknown 11/04/2021 7:35 AM EST 11/04/2021 7:52 AM EST Narrative Resulting Agency Comment Spec In Lab Horace Nielsen MD CHEMISTRY ORDERABL ES Performing Organization Address City/[facility] Co de Phone Number [facility] [place] [address] * Triglyceride (11/04/2021 7:35 AM EST) Triglyceride 130 mg/dL [facility] Comment: Average Risk/Lower Risk: <150 mg/dL Borderline High Risk: 150-199 mg/dL High Risk: 200-499 mg/dL Very High Risk: >ex=094 mg/dL Blood Venous Draw / Unknown 11/04/2021 7:35 AM EST 11/04/2021 7:52 AM EST Narrative Resulting Agency Comment Spec In Lab Horace Nielsen MD CHEMISTRY ORDERABL ES Performing Organization Address City/[facility]/ZIP Co de Phone Number [facility] [place] [address] * Scan, Peripheral Blood (11/04/2021 7:35 AM EST) Plat estimate Normal [facility] RBC Morphology Abnormal [facility] Hypochromia Slight [facility] Blood 11/04/2021 7:35 AM EST 11/04/2021 7:48 AM EST Narrative Resulting Agency Comment Spec In Lab Horace Nielsen MD HEMATOLOGY ORDERAB LES Performing Organization Address City/[facility]/ZIP Co de Phone Number [facility] [place] [address] * (ABNORMAL) Osmolality (11/04/2021 7:35 AM EST) [facility] Osmolality 306(H) 275 - 295 mOsm/kg [facility] Blood Venous Draw / Unknown 11/04/2021 7:35 AM EST 11/04/2021 7:52 AM EST Narrative Resulting Agency Comment Spec In Lab Horace Nielsen MD CHEMISTRY ORDERABL ES Performing Organization Address [facility] Co de Phone Number [facility] [place] [address] * (ABNORMAL) D-Dimer, Quantitative (11/04/2021 7:35 AM EST) [facility] D-Dimer 5,001(H) 0 - 500 FEU ng/ml [facility] Comment: The D-Dimer assay is used to aid in the diagnosis of deep vein thrombosis and pulmonary embolism. A normal D-Dimer result (less than 500 FEU ng/ml) has a negative predictive value of approximately 95% for the exclusion of acute PE and DVT when there is low to moderate pretest probability. To use age adjusted cutoff: Age x 10 ng/ml. Blood Venous Draw / Unknown 11/04/2021 7:35 AM EST 11/04/2021 7:49 AM EST Narrative Resulting Agency Comment Spec In Lab Horace Nielsen MD HEMATOLOGY ORDERAB LES Performing Organization Address City/[facility]/ZIP Co de Phone Number [facility] [place] [address] * Gold Tube HOLD (11/04/2021 7:35 AM EST) [facility] Gold Hold Sample in lab. [facility] Blood Venous Draw / Unknown 11/04/2021 7:35 AM EST 11/04/2021 7:53 AM EST Horace Nielsen MD CHEMISTR[place] [address] * Blue Tube HOLD (11/04/2021 7:35 AM EST) Pathologist [facility] Blue Hold Sample in lab. [facility] Blood Venous Draw / Unknown 11/04/2021 7:35 AM EST 11/04/2021 7:49 AM EST Horace Nielsen MD HEMATOLOGY [place] [address] * (ABNORMAL) Differential, Automated (11/04/2021 7:35 AM EST) [facility] Neutrophil % 72.9 % [facility] Neutrophil Absolute 18.66(H) 1.70 - 6.10 x10(3)/mc L [facility] Lymph % 19.3 % [facility] Lymphocytes Abs 4.9(H) 0.9 - 3.2 x10(3)/mc L [facility] Monocyte % 4.2 % [facility] Monocyte Abs 1.1(H) 0.3 - 0.9 x10(3)/mc L [facility] Eos % 1.9 % [facility] Eosinophils Abs 0.5(H) 0.0 - 0.4 x10(3)/mc L [facility] Basophil % 0.5 % [facility] Baso Absolute 0.1 0.0 - 0.1 x10(3)/mc L [facility] Immature Gran % 1.20 % [facility] Comment: Immature granulocytes(IG's)percentage and absolute count will include metamyelocytes, myelocytes, and promyelocytes. Blood smears from CBCs yielding IG's will be scanned manually for concordance. If this scan disagrees with the automated IG or if promyelocytes are noted, a manual differential will be performed. Immature Gran Absolute 0.30(H) 0.00 - 0.04 x10(3)/ L [facility] Blood 11/04/2021 7:35 AM EST 11/04/2021 7:48 AM EST Narrative Resulting Agency Comment Spec In Lab Horace Nielsen MD HEMATOLOGY ORDERAB LES [facility] [place] [address] * (ABNORMAL) Hemogram (11/04/2021 7:35 AM EST) White Blood Cell 25.6(H) 4.0 - 9.5 x10(3)/ L [facility] Red Blood Cell 4.96 4.00 - 5.21 x10(6)/[facility] Hemoglobin 12.9 11.7 - 15.5 g/dL [facility] Hematocrit 43.1 35.7 - 45.8 % [facility] Mean Cell Volume 86.9 82.6 - 94.4 fL [facility] Comment: This result has been called to NOT CALLED by Aminah Mojica on 11 04 2021 at 0816, and has not been read back. Mean Cell Hemoglobin 26.0(L) 27.1 - 32.0 pg [facility] Mean Cell Hemoglobin Concentration 29.9(L) 31.7 - 35.0 g/dL [facility] Platelet 298 145 - 357 x10(3)/ L [facility] RDW Standard Deviation 51.5(H) 37.0 - 46.0 fL [facility] RDW coefficient of variation 16.5(H) 11.5 - 14.1 % [facility] Mean Platelet Volume 11.5 7.6 - 12.9 fL [facility] NRBC% auto 0.0 % [facility] NRBC Absolute 0.000 0.000 - 0.000 x10(3)/mc L [facility] Blood 11/04/2021 7:35 AM EST 11/04/2021 7:48 AM EST Narrative Resulting Agency Comment Spec In Lab Horace Nielsen MD HEMATOLOGY ORDERAB LES [facility] [place] [address] * COVID-19 PCR (11/04/2021 7:35 AM EST) SARS-CoV-2 RNA (Rapid) Not Detected Not Detected [facility] Comment: This result should be interpreted in combination with the clinical observations, patient history and epidemiological information. For testing of asymptomatic individuals, assay performance characteristics and clinical utility have not been evaluated. Testing for SARS-CoV-2 (Severe acute respiratory syndrome coronavirus 2, formerly known as 2019 novel coronavirus or 2019-nCoV) to aid in the diagnosis of COVID-19 is performed using the Simplexa COVID-19 Direct Assay by [employer] as authorized by the FDA issued Emergency Use Authorization (EUA). This assay is intended for In-vitro Diagnostic (IVD) use with nasopharyngeal swabs collected from individuals meeting the CDC criteria for testing. The assay is performed based on the instructions for use and additional guidance provided by the FDA. Testing is performed in the Microbiology Laboratory within the Department of Pathology and Laboratory Medicine at [facility], certified under the Clinical Laboratory Improvement Amendments of 1988 (CLIA), 42 U.S.C. section 263a, to perform high complexity tests. Assay performance has been verified according to clinical laboratory regulatory requirements. Test results are provided above. A result of Not Detected indicates that [...] test are highly dependent on disease prevalence. A result of Invalid indicates the inability to conclusively determine the presence or absence of SARS-CoV-2 RNA in the sample which can be due to a variety of factors. Recollection is recommended in the case of an invalid result. CDC COVID-19 criteria for testing on human specimens and clinical management guidance information are available at the CDC Coronavirus Disease 2019 (COVID-19) webpage under Information for Healthcare Professionals (https://www.cdc.gov/coronavirus/2019-ncov/hcp/index.html). Additional information about this and other EUA tests can be found in provider and patient fact sheets at the following FDA website: https://www.fda.gov/medical-devices/tvjfmzlgbgk-dubglux-6776-ujrkm-97-rnlrdqcba- use-a aghsvvnjhrase-jactlvn-ovlkhgu/veljd-fqsnfplkpso-jcft SARS-CoV-2 Source [employer] [facility] Nasopharyngeal Swab 11/04/19 7:35 AM EST 11/04/2021 10:06 AM EST Comment:Symptoms->COVID-19 S uspected Narrative Resulting Agency Comment Spec In Lab Horace Nielsen MD MICROBIOLOGY - GEN ERAL ORDERABLES Performing Organization Address [facility] Co de Phone Number [facility] [place] [address] * Ethanol Level (11/04/2021 7:35 AM EST) Ethanol <100 <=99 mg/L [facility] Comment: Greater than 800 mg/L (0.08%) should be considered intoxicated. 3400 to 4500 mg/L (0.34 - 0.45%) is considered severe intoxication. Greater than 5500 mg/L (0.55%) is usually fatal. Blood 11/04/2021 7:35 AM EST 11/04/2021 7:48 AM EST Narrative Resulting Agency Comment Spec In Lab Horace Nielsen MD CHEMISTRY ORDERABL ES Performing Organization Address [facility] Co de Phone Number [facility] [place] [address] * Salicylate (11/04/2021 7:35 AM EST) Salicylate <3 mg/L [facility] Comment: Therapeutic Range: ??< 200 mg/L Arthritic Therapy: ??150-300 mg/L Toxic: ?> 350 mg/L ??Concentrations > 500 mg/L may be an indication for alkalinization of urine. Concentrations > 800 mg/L are often an indication for hemodialysis. Blood 11/04/2021 7:35 AM EST 11/04/2021 7:48 AM EST Narrative Resulting Agency Comment Spec In Lab Horace Nielsen MD CHEMISTRY ORDERABL ES Performing Organization Address [facility] de Phone Number [facility] [place] [address] * (ABNORMAL) Acetaminophen level (11/04/2021 7:35 AM EST) Acetamin Lvl <5(L) 10 - 30 mg/L [facility] Comment: Levels >150 mg/L at 4 hours post ingestion or >75 mg/L at 8 hours post ingestion are often an indication for N-Acetylcysteine. Blood 11/04/2021 7:35 AM EST 11/04/2021 7:48 AM EST Narrative Resulting Agency Comment Spec In Lab Horace Nielsen MD CHEMISTRY ORDERABL ES Performing Organization Address [facility] Co de Phone Number [facility] [place] [address] * (ABNORMAL) Phosphorus (11/04/2021 7:35 AM EST) Phosphorus 6.2(H) 2.5 - 4.5 mg/dL [facility] Blood 11/04/2021 7:35 AM EST 11/04/2021 7:48 AM EST Narrative Resulting Agency Comment Spec In Lab Horace Nielsen MD CHEMISTRY ORDERABL ES Performing Organization Address City/[facility]/ZIP Co de Phone Number [facility] [place] [address] * Magnesium (11/04/2021 7:35 AM EST) Magnesium 1.04 0.69 - 1.07 mmol/L [facility] Blood 11/04/2021 7:35 AM EST 11/04/2021 7:48 AM EST Narrative Resulting Agency Comment Spec In Lab Horace Nielsen MD CHEMISTRY ORDERABL ES Performing Organization Address [facility] Co de Phone Number [facility] [place] [address] * (ABNORMAL) Troponin (11/04/2021 7:35 AM EST) Troponin-T 0.02(H) 0.00 - 0.00 ng/mL [facility] Comment: Called by: MAYDA, Read back by: Gabriela Astorga, Date/Time:11/04/21 08:25. The 99th percentile for Troponin T is less than 0.01 ng/mL, any detectable cTnT concentration using this assay should be considered elevated. According to the third universal definition of myocardial infarction the following criteria with a clinical presentation consistent with acute myocardial ischemia meets the diagnosis for a myocardial infarction (PR). Detection of a rise and/or fall of cTnT, with at least one value greater than the 99th percentile (> or = 0.01) and with at least one of the following ?? Symptoms of ischemia ?? New or presumed new significant [id number] wave (ST-T) changes or new left bundle [...] additional sample may be indicated. Reference: Third [place] Definition of Myocardial Infarction. Journal of the [place] [employer] 2012;60:1581-98 Blood 11/04/2021 7:35 AM EST 11/04/2021 7:48 AM EST Narrative Resulting Agency Comment Spec In Lab Horace Nielsen MD CHEMISTRY ORDERABL ES [facility] [place] [address] * (ABNORMAL) Comprehensive metabolic panel (non-fasting) (11/04/2021 7:35 AM EST) Glucose 196 65 - 199 mg/dL [facility] Comment:Diabetes: >=200 mg/d L plus symptoms Blood Urea Nitrogen 20(H) 8 - 18 mg/dL [facility] Creatinine 1.55(H) 0.70 - 1.20 mg/dL [facility] Sodium 140 135 - 145 mmol/L [facility] Potassium 5.1(H) 3.5 - 5.0 mmol/L [facility] Comment: Please note: ??Patients with WBC >100,000 may have falsely elevated Potassium levels. ??For accurate Potassium quantification in these patients send serum separator tube (gold top) for subsequent determinations. ??Contact the Clinical Chemistry Laboratory if there are any questions. Chloride 104 98 - 107 mmol/L [facility] Carbon Dioxide 19(L) 22 - 31 mmol/L [facility] Anion Gap 17(H) 5 - 15 mmol/L [facility] Calcium 9.4 8.5 - 10.5 mg/dL [facility] Protein, Total 6.8 6.1 - 8.0 g/dL [facility] Albumin 4.4 3.2 - 5.2 g/dL [facility] Aspartate Aminotransferase 72(H) 0 - 30 unit/L [facility] Alanine Aminotransferase 79(H) 0 - 30 unit/L [facility] Alkaline Phosphatase 88 35 - 105 unit/L [facility] Bilirubin, Total 0.2 0.2 - 1.3 mg/dL [facility] Est Glomerular Filtration Rate 42(L) >=60 mL/min/1. 73 m?? [facility] Comment: This patient? s estimated glomerular filtration rate (eGFR) is between 42 mL/min/1.73 m2 (patients with less muscle mass) and 49 mL/min/1.73 m2 (patients with more muscle mass) [...] and symptoms in addition to eGFR. Blood 11/04/2021 7:35 AM EST 11/04/2021 7:48 AM EST Narrative Resulting Agency Comment Spec In Lab Horace Nielsen MD CHEMISTRY ORDERABL ES [facility] [place] [address] * (ABNORMAL) BLOOD GAS 2 VENOUS (11/04/2021 7:33 AM EST) pH, Venous 7.09(Criti cindy) 7.32 - 7.42 [facility] Comment:Noted by medical or surgical instrument maker. PCO2, Venous 66(Critica l) 41 - 51 mmHg [facility] Comment:Noted by medical or surgical instrument maker. PO2, Venous 31 25 - 40 mmHg [facility] Bicarbonate, Venous 19.7 mmol/L [facility] Base Excess, Venous -10.1 mmol/L [facility] Hgb Blood Gas 13.6 11.7 - 15.5 g/dL [facility] Oxyhemoglobin, Venous 40.0 % [facility] Carboxyhemoglob in, Venous 1.8 % [facility] Comment: Nonsmokers: 0.5-1.5% COHB Smokers: Variable, but usually less than 10% Toxic: 20-30% COHB Lethal: Greater than 60% COHB Methemoglobin, Venous 0.5 <=1.5 % [facility] Na Whole Blood 142 135 - 145 mmol/L [facility] K Whole Blood 4.5 3.5 - 5.0 mmol/L [facility] Comment: Please note: Patients with WBC >100,000 may have falsely elevated Potassium levels. Contact the Clinical Chemistry Laboratory if there are any questions. ICa Whole Blood 1.25 1.15 - 1.33 mmol/L [facility] Comment: Note: ??Total bilirubin higher than 20 mg/dL may lead to falsely low ionized calcium. CL Whole Blood 102 98 - 107 mmol/L [facility] Gluc Whole Bld 189 65 - 199 mg/dL [facility] Comment:Diabetes: >=200 mg/d L plus symptoms Lactate WB 6.5(Critic al) 0.5 - 2.2 mmol/L [facility] Comment:Noted by medical or surgical instrument maker. Blood Gas Source Venous [facility] Blood 11/04/2021 7:33 AM EST 11/04/2021 7:[address] Chio Gonzalez MD POINT OF CARE TEST O RDERABLES Performing Organization Address City/State/[facility] Co de Phone Number [facility] [place] [address] * US Cardiac (POCUS) (11/04/2021 7:25 AM EST) Anatomical Region Laterality Modality Cardiac Other 11/04/2021 7:25 AM EST Narrative 11/05/2021 12:02 PM EST Exam Information A focused ultrasound exam of the heart was performed to evaluate for pericardial effusion, tamponade, right ventricular strain, severe hypovolemia, as well as gross abnormalities of cardiac anatomy and systolic function.: Indication(s) The ultrasound was performed with the following indications: : Cardiac Arrest Views The pericardial sac, myocardium, and 4 chambers were identified using the following views: : Subxiphoid 4-chamber,Parasternal long-axis ,Parasternal short-axis ,Apical 4- chamber Findings LV function:: Normal (LVEF > 50%) E-Point Septal Separation (EPSS): ??mm RV function:: Normal (RV:LV, < 0.66:1) Tricuspid Annular Plane Systolic Excursion (TAPSE): ??mm Pericardial effusion: : Absent IVC size:: Window not obtained IVC collapsibility:: Indeterminate Aortic root diameter (measured in PSLX):: Aortic root measurment:: : ??cm Other findings:: Impression Impression:: Normal limited cardiac ultrasound Other impression:: Confirmatory Study What confirmatory study was done:: CT,ECHO Results:: TTE performed on 11/04/21 with nromal LVEF, normal RV size, normal valves. CPT Code 35477:Limited Basic Cardiac (87231) Electronically Signed by the following Performing: ?on 12:02 Attending: Horace Nielsen ??on 12:02 PDF Procedure Note Horace Nielsen MD - 11/05/2021 Exam Information A focused ultrasound exam of the heart was performed to evaluate forpericardial effusion, tamponade, right ventricular strain, severe hypovolemia, as well as grossabnormalities of cardiac anatomy and systolic function.: Indication(s) The ultrasound was performed with the following indications: : CardiacArrest Views The pericardial sac, myocardium, and 4 chambers were identified using thefollowing views: : Subxiphoid 4-chamber,Parasternal long-axis ,Parasternal short-axis ,Apical4- chamber Findings LV function:: Normal (LVEF > 50%) E-Point Septal Separation (EPSS): mm RV function:: Normal (RV:LV, < 0.66:1) Tricuspid Annular Plane Systolic Excursion (TAPSE): mm Pericardial effusion: : Absent IVC size:: Window not obtained IVC collapsibility:: Indeterminate Aortic root diameter (measured in PSLX):: Aortic root measurment:: : cm Other findings:: Impression Impression:: Normal limited cardiac ultrasound Other impression:: Confirmatory Study What confirmatory study was done:: CT,ECHO Results:: TTE performed on 11/04/21 with nromal LVEF, normal RV size,normal valves. CPT Code 75602:Limited Basic Cardiac (49832) Electronically Signed by the following Performing: on 12:02Attending: Horace Nielsen on 12:02 PDF Horace Nielsen MD EA IMAGES documented in this encounter Visit Diagnoses Diagnosis Cardiac arrest- Primary Cardiac arrest JENNIFER (acute kidney injury) Acute kidney failure, unspecified Coronary artery vasospasm Prinzmetal angina Chest pain, unspecified type Post-traumatic stress disorder, chronic Borderline personality disorder Anxiety disorder, unspecified Depression Depressive disorder, not elsewhere classified Asthma Unspecified asthma Hypertension Unspecified essential hypertension Coronary artery vasospasm Prinzmetal angina History of COVID-19 Cigarette smoker Tobacco use disorder Subcutaneous defibrillator implanted 11/12/2019 documented in this encounter Admitting Diagnoses Diagnosis Cardiac arrest documented in this encounter Administered Medications Inactive Administered Medications - up to 3 most recent administrations Medication Order MAR Action Action Date Dose Rate Site acetaminophen (Ofirmev) (1000 mg/100 mL) infusion 1,000 mg 1,000 mg, Intravenous, at 400 mL/hr, Administer over 15 Minutes, ONCE, 1 dose, On Fri11/06/21 at 1845, Maximum dose of acetaminophen is 4000 mg from all sources in 24 hours. When ordered for pain, acetaminophen should be given even when other ordered pain medications are indicated. , Routine, Is ketorolac (Toradol) IV contraindicated? Yes, Can this patient tolerate oral medications or suppositories? No Given 11/06/2021 6:44 PM EST 1,000 mg 400 mL/hr acetaminophen (Tylenol) (32.02 mg/mL) oral liquid 1,000 mg 1,000 mg, Oral, EVERY 8 HOURS SCHEDULED, First dose on Fri11/05/21 at 0600, Until Discontinued, May give PO or Per Tube, Maximum dose of acetaminophen is 4000 mg from all sources in 24 hours. When ordered for pain, acetaminophen should be given even when other ordered pain medications are indicated., Routine Given 11/06/2021 1:02 PM EST 1,000 mg Given 11/05/2021 1:51 PM EST 1,000 mg acetaminophen (Tylenol) tablet 650 mg 650 mg, Oral, EVERY 6 HOURS PRN, Starting on Jenelle 11/08/21 at 1147, Until 11/14/21 at 1827, Pain, Maximum dose of acetaminophen is 4000 mg from all sources in 24 hours. When ordered for pain, acetaminophen should be given even when other ordered pain medications are indicated. , Routine Given 11/14/2021 11:21 AM EST 650 mg Given 11/14/2021 6:01 AM EST 650 mg Given 11/13/2021 5:28 PM EST 650 mg acetaminophen (Tylenol) tablet 975 mg 975 mg, Oral, ONCE, 1 dose, On Fri11/11/21 at 1830, Maximum dose of acetaminophen is 4000 mg from all sources in 24 hours. When ordered for pain, acetaminophen should be given even when other ordered pain medications are indicated. , Routine Given 11/11/2021 6:15 PM EST 975 mg ALPRAZolam (Xanax) tablet 1 mg 1 mg, Per NG tube, ONCE, 1 dose, On Fri11/09/21 at 0630, Routine Given 11/09/2021 5:41 AM EST 1 mg alum-mag hydroxide-simeth (Maalox) (40 mg-40 mg-4 mg/mL) oral liquid 10 mL 10 mL, Oral, 3 TIMES DAILY PRN, Starting on Fri11/13/21 at 0921, Until Fri11/14/21 at 1827, Heartburn, Routine AMIOdarone (Cordarone) (1.8 mg/mL) in dextrose 5% 200 mL infusion 0.5-1 mg/min (16.6667-33.3333 mL/hr, rounded to 16.7-33.3 mL/hr), Intravenous, CONTINUOUS, Starting on Fri11/04/21 at 2215, Until Fri11/07/21 at 0743, Slow Load. Initiate loading infusion (slow): 1 mg/minute over 6 hours, then decrease to maintenance infusion: 0.5 mg/minute over 18 hours. At 24 hours from start time, call MD regarding infusion or change to oral dosing. Rate/Dose Verify 11/07/2021 6:00 AM EST 0.5 mg/min 16.7 mL/hr New Bag 11/07/2021 5:46 AM EST 0.5 mg/min 16.7 mL/hr Rate/Dose Verify 11/07/2021 4:00 AM EST 0.5 mg/min 16.7 mL /hr AMIOdarone (Cordarone) 360 mg/200 mL (1.8 mg/mL) infusion 1 dose, Starting on Fri11/04/21 at 1515, Until Fri11/04/21 at 2027, Marika Luis: cabinet override amLODIPine (Norvasc) tablet 10 mg 10 mg, Oral, DAILY, First dose (after last modification) on Fri11/08/21 at 1100, Until Discontinued, Routine Given 11/14/2021 9:04 AM EST 10 mg Given 11/13/2021 9:15 AM EST 10 mg Given 11/12/2021 8:33 AM EST 10 mg aspirin suppository 300 mg 300 mg (rounded from 325 mg), Rectal, ONCE, 1 dose, On Fri11/04/21 at 1615, Routine Given 11/04/2021 3:30 PM EST 300 mg atorvastatin (Lipitor) tablet 40 mg 40 mg, Oral, EVERY EVENING, First dose on Fri11/05/21 at 1700, Until Discontinued, Routine Given 11/13/2021 5:28 PM EST 40 mg Given 11/12/2021 5:18 PM EST 40 mg Given 11/12/2021 5:02 PM EST 40 mg ceFEPime (Maxipime) 1g vial attach to sodium chloride 0.9% 100 mL Mini-Bag Plus 1 g, Intravenous, EVERY 8 HOURS, First dose on Fri11/06/21 at 0845, Until Discontinued, Administer over 30 Minutes, Indication for (Active or Suspected): Pneumonia ([facility]) New Bag 11/06/2021 4:02 PM EST 1 g 200 mL/hr New Bag 11/06/2021 8:07 AM EST 1 g 200 mL/hr ceFEPime (Maxipime) 2g vial attach to sodium chloride 0.9% 100 mL Mini-Bag Plus 2 g 2 g, Intravenous, EVERY 12 HOURS, First dose on Fri11/07/21 at 0000, Until Discontinued, Administer over 30 Minutes, Attach to 100 mL sodium chloride 0.9% Mini-Bag Plus , Indication for (Active or Suspected): Pneumonia ([facility]) / aspiration New Bag 11/08/2021 12:30 AM EST 2 g 200 mL/hr Right Arm New Bag 11/07/2021 12:13 PM EST 2 g 200 mL/hr New Bag 11/06/2021 11:53 PM EST 2 g 200 mL/hr ceFEPime (Maxipime) 2g vial attach to sodium chloride 0.9% 100 mL Mini-Bag Plus 2 g 2 g, Intravenous, EVERY 8 HOURS, 20 doses, First dose (after last modification) on Jenelle 11/08/21 at 0830, Last dose on Fri11/14/21 at 1630, Administer over 30 Minutes, Attach to 100 mL sodium chloride 0.9% Mini-Bag Plus , Indication for (Active or Suspected): Pneumonia ([facility]) / aspiration New Bag 11/13/2021 9:13 AM EST 2 g 200 mL/hr New Bag 11/13/2021 12:20 AM EST 2 g 200 mL/hr New Bag 11/12/2021 5:03 PM EST 2 g 200 mL/hr chlorhexidine (Peridex) 0.12 % oral solution 15 mL 15 mL, Oral, 2 TIMES DAILY, First dose on Fri11/04/21 at 0911, Until Discontinued, Routine Given 11/13/2021 9:51 PM EST 15 mLs Given 11/12/2021 8:38 PM EST 15 mLs Given 11/12/2021 8:34 AM EST 15 mLs clonazePAM (KlonoPIN) disintegrating tablet 0.5 mg 0.5 mg, Per NG tube, ONCE, 1 dose, On Fri11/09/21 at 0430, DO NOT SPLIT, CRUSH OR OPEN, Routine Given 11/09/2021 4:32 AM EST 0.5 mg clonazePAM (KlonoPIN) tablet 0.5 mg 0.5 mg, Oral, NIGHTLY, First dose on Jenelle 11/08/21 at 2100, Until Discontinued, DO NOT SPLIT, CRUSH OR OPEN, Routine Given 11/08/2021 9:42 PM EST 0.5 mg clonazePAM (KlonoPIN) tablet 0.5 mg 0.5 mg, Oral, DAILY PRN, Starting on 11/10/21 at 1754, Until Fri11/14/21 at 1827, Anxiety, for BP >180 or HR >115, Through NGT. May put ODT tabs in oral syringe with 10 cc water and give via tube once dissolved., Routine Given 11/12/2021 12:01 AM EST 0.5 mg Given 11/11/2021 1:07 AM EST 0.5 mg clonazePAM (KlonoPIN) tablet 1 mg 1 mg, Oral, 2 TIMES DAILY, First dose (after last modification) on Fri11/09/21 at 2100, Until Discontinued, Through NGT. May put ODT tabs in oral syringe with 10 cc water and give via tube once dissolved., Routine Given 11/14/2021 9:02 AM EST 1 mg Given 11/13/2021 9:50 PM EST 1 mg Given 11/13/2021 9:15 AM EST 1 mg clonazePAM (KlonoPIN) tablet 1 mg 1 mg, Oral, ONCE, 1 dose, On Fri11/09/21 at 2300, DO NOT SPLIT, CRUSH OR OPEN, Routine Given 11/09/2021 10:21 PM EST 1 mg dexmedetomidine (Precedex) (4 mcg/mL) in sodium chloride 0.9% 100 mL infusion 0-1.7 mcg/kg/hr ? 70 kg (0-29.75 mL/hr, rounded to 0-29.8 mL/hr), Intravenous, CONTINUOUS, Starting on Fri11/06/21 at 1200, Until Fri11/08/21 at 1812, Titrate to sedation level of RASS Goal (-)1 to 0 . Start at 0.4 mcg/kg/hr, adjust by 0.4 mcg/kg/hr every 15 minutes. Once stable, reassess patient every 30 minutes. Rate not to exceed 1.7 mcg/kg/hr. Change rate only after assessing and documenting RASS. Reassess sedation scores within 30 minutes after every rate change. If under sedated, increase rate by 0.4 mcg/kg/hr. If over sedated, hold sedative until target RASS (-)1 to 0 achieved and then restart at 50% of previous rate. Call household appliances service technician if goal not achieved at maximum rate. If SAT is ordered and if patient meets criteria for Spontaneous Awakening Trial, titrate per protocol., Routine, Please indicate the name & specialty of the Attending Provider who authorized the use of this medication: Tameka Spann, anesthesia Rate/Dose Change 11/07/2021 4:39 PM EST 0.4 mcg/kg/hr 7 mL/hr Rate/Dose Change 11/07/2021 3:31 PM EST 0.6 mcg/kg/hr 10.5 mL/hr New Bag 11/07/2021 3:04 PM EST 0.8 mcg/kg/hr 14 mL/hr dexmedetomidine (Precedex) 400 mcg/100 mL (4 mcg/mL) infusion 1 dose, Starting on Fri11/06/21 at 1102, Until Fri11/06/21 at 1219, Leonora Arnold: pawaninet override enoxaparin (Lovenox) (40 mg/0.4 mL) subcutaneous injection 40 mg 40 mg, Subcutaneous, NIGHTLY, First dose (after last modification) on Fri11/07/21 at 2100, Until Discontinued, Routine Given 11/10/2021 9:04 PM EST 40 mg Given 11/09/2021 8:18 PM EST 40 mg Given 11/08/2021 8:05 PM EST 40 mg famotidine (Pepcid) tablet 20 mg 20 mg, Oral, 2 TIMES DAILY, First dose on Fri11/04/21 at 0911, Until Discontinued, Routine Given 11/14/2021 9:02 AM EST 20 mg Given 11/13/2021 9:50 PM EST 20 mg Given 11/13/2021 9:15 AM EST 20 mg fentaNYL (50 mcg/mL) bolus from infusion 50-200 mcg 50-200 mcg, Intravenous, EVERY 15 MIN PRN, Starting on Fri11/05/21 at 0321, Until Fri11/07/21 at 1703, Pain, Refer to infusion order for Bolus instructions. ??Reassess pain 15 minutes after bolus given., Routine Bolus from Infusion 11/07/2021 2:29 PM EST 50 mcg Bolus from Infusion 11/06/2021 5:45 PM EST 50 mcg Bolus from Infusion 11/06/2021 12:19 PM EST 100 mcg fentaNYL (PF) (50 mcg/mL) infusion bag 50 mL 50 mcg/hr (1 mL/hr), Intravenous, CONTINUOUS, Starting on Fri11/04/21 at 0744, Until Fri11/04/21 at 2111, Routine Rate/Dose Verify 11/04/2021 3:00 PM EST 50 mcg/hr 1 mL/hr New Bag 11/04/2021 10:25 AM EST 50 mcg/hr 1 mL/hr fentaNYL (PF) (50 mcg/mL) infusion syringe 50 mL 50 mcg/hr (1 mL/hr), Intravenous, CONTINUOUS, Starting on Fri11/04/21 at 2200, Until Fri11/05/21 at 0322, Routine Rate/Dose Verify 11/05/2021 2:00 AM EST 50 mcg/hr 1 mL/hr Rate/Dose Verify 11/05/2021 12:00 AM EST 50 mcg/hr 1 mL/h r Rate/Dose Verify 11/04/2021 11:00 PM EST 50 mcg/hr 1 mL/h r fentaNYL (PF) (50 mcg/mL) infusion syringe 50 mL 0-400 mcg/hr (0-8 mL/hr), Intravenous, CONTINUOUS, Starting on Fri11/05/21 at 0415, Until Fri11/07/21 at 1703, Initial infusion rate: 100 mcg/hour; ??Adjust hourly rate every 15 minutes to achieve goal. ??To titrate up, increase hourly rate by 50 mcg/hr AND bolus 50% of new hourly rate. ??To titrate down, decrease hourly rate by 50%. ??Rate not to exceed 400 mcg/hr. Pain assessment every 15 minutes initially and reassess pain 15 minutes after each bolus given. ??Pain assessment MUST be documented prior to rate change., Routine New Bag 11/07/2021 3:04 PM EST 25 mcg/hr 0.5 mL/hr Rate/Dose Verify 11/07/2021 2:00 PM EST 75 mcg/hr 1.5 mL/ hr Rate/Dose Change 11/07/2021 1:31 PM EST 75 mcg/hr 1.5 mL/ hr fentaNYL (pf) (50 mcg/mL) multi-dose injection 100 mcg 100 mcg, Intravenous, ONCE, 1 dose, On Fri11/04/21 at 0902, STAT Given 11/04/2021 9:02 AM EST 100 mcg fentaNYL (PF) (Sublimaze) 50 mcg/mL injection 1 dose, Starting on Fri11/04/21 at 0731, Until Fri11/04/21 at 0902, GABRIELA ASTORGA: cabinet override guaiFENesin ER (Mucinex) tablet 600 mg 600 mg, Oral, EVERY 12 HOURS SCHEDULED (2 times per day), First dose on Fri11/09/21 at 1930, Until Discontinued, DO NOT CRUSH OR OPEN, Routine Given 11/14/2021 9:02 AM EST 600 mg Given 11/13/2021 9:50 PM EST 600 mg Given 11/13/2021 9:15 AM EST 600 mg heparin (porcine) 25,000 unit/500 mL infusion 1 dose, Starting on Fri11/04/21 at 1525, Until Fri11/04/21 at 1530, ARIES HINSON: eloise override heparin (porcine) 50 units/mL in sodium chloride 0.45% 500 mL infusion 0-5,000 Units/hr (0-100 mL/hr), Intravenous, CONTINUOUS, Starting on Fri11/04/21 at 1615, Until Fri11/07/21 at 0824, BEGIN infusion at 850 units per hr (12 units/kg/hr). MAX INITIAL infusion rate is 1,000 units/hr. Target Heparin UFH Level (anti-Xa activity) = 0.3 - 0.7 IU/mL Start adjustment schedule 6 hours after starting infusion. If Heparin UFH Level is: - less than 0.1 IU/mL, administer PRN bolus and increase rate by 300 units per hr (4 units/kg/hr) - 0.1 - 0.29 IU/mL, administer PRN bolus and increase rate by 150 units per hr (2 units/kg/hr) - 0.3 - 0.7 IU/mL, No Change - 0.71 - 0.85 IU/mL, decrease rate by 50 units per hr (1 units/kg/hr) - 0.86 - 1.05 IU/mL, stop infusion for 30 minutes, then decrease rate by 150 units per hr (2 units/kg/hr) - Greater than 1.05 IU/mL, stop infusion for 60 minutes, then decrease rate by 200 units per hour (3 units/kg/hr) Repeat Heparin UFH Level 6 hours after initiating heparin. Then 6 hours after each dose adjustment. When 2 consecutive Heparin UFH Level within target range of 0.3 - 0.7 IU/mL, change Heparin UFH Level to once every 24 hours with A.M. labs while on heparin. RN to order required Heparin UFH Level - Per Protocol, Routine Rate/Dose Change 11/06/2021 7:20 AM EST 800 Units/hr 16 mL/hr Rate/Dose Verify 11/06/2021 6:00 AM EST 850 Units/hr 17 mL /hr Rate/Dose Verify 11/06/2021 4:00 AM EST 850 Units/hr 17 mL /hr hydrOXYzine (Atarax) tablet 50 mg 50 mg, Oral, 3 TIMES DAILY PRN, Starting on 11/11/21 at 1806, Until Fri11/14/21 at 1827, Anxiety, Routine ibuprofen (Advil) tablet 600 mg 600 mg, Oral, 2 TIMES DAILY PRN, Starting on Jenelle 11/08/21 at 1513, Until Fri11/08/21 at 2046, Pain, Administer orally with milk or food to minimize GI irritation. Maximum dose of 3,200 mg from all sources in 24 hours, Routine Given 11/08/2021 3:22 PM EST 600 mg ibuprofen (Advil) tablet 600 mg 600 mg, Oral, EVERY 8 HOURS PRN, Starting on Fri11/08/21 at 2100, Until Fri11/14/21 at 1827, Pain, Administer orally with milk or food to minimize GI irritation. Maximum dose of 3,200 mg from all sources in 24 hours, Routine Given 11/14/2021 11:21 AM EST 600 mg Given 11/13/2021 9:50 PM EST 600 mg Given 11/13/2021 12:48 PM EST 600 mg iodixanoL (Visipaque) (320 mg/mL) injection solution 0-200 mL 0-200 mL, Intravenous, ONCE PRN, 1 dose, Starting on Fri11/04/21 at 0934, Until Fri11/04/21 at 0934, Per Protocol, Radiology Contrast, Routine Given 11/04/2021 9:34 AM EST 75 mLs ketorolac (Toradol) (30 mg/mL) injection 15 mg 15 mg, Intravenous, ONCE, 1 dose, On Fri11/09/21 at 0415, Routine Given 11/09/2021 3:41 AM EST 15 mg lactated ringers infusion 500 mL/hr, Intravenous, ONCE, 1 dose, On Fri11/05/21 at 1645 New Bag 11/05/2021 3:56 PM EST 500 mL/hr 500 mL/hr lidocaine (Lidoderm) 5% patch 3 patch 3 patch, Transdermal, EVERY 24 HOURS, First dose on Fri11/06/21 at 1630, Until Discontinued, Apply patch(es) for 12 hours, and then remove for 12 hours., Routine Patch Applied 11/14/2021 4:37 AM EST 3 patches 11- Chest (Left) Patch Applied 11/13/2021 4:03 AM EST 3 patches 11- Chest (Left) Patch Applied 11/12/2021 5:45 AM EST 3 patches 04- Shoulder (Right) lidocaine (Lidoderm) topical patch REMOVAL Transdermal, EVERY 24 HOURS, First dose on Fri11/07/21 at 0430, Until Discontinued, Remove lidocaine 5% patch lidocaine (pf) (Xylocaine) (4 mg/mL) in dextrose 5% 500 mL infusion Administer over 24 Hours, CONTINUOUS PRN, Starting on Fri11/04/21 at 1716, Until Fri11/12/21 at 1633, Cath (Intra-Procedure), Routine Rate/Dose Verify 11/05/2021 5:00 AM EST 15 mL/hr Rate/Dose Verify 11/05/2021 4:00 AM EST 1 mg/min 15 mL/h r Rate/Dose Verify 11/04/2021 11:00 PM EST 1 mg/min 15 mL/ hr lidocaine (pf) (Xylocaine) (4 mg/mL) in dextrose 5% 500 mL infusion 1 mg/min (15 mL/hr), Intravenous, Administer over 24 Hours, CONTINUOUS, Starting on Fri11/05/21 at 1030, Until Fri11/06/21 at 0752, Routine Rate/Dose Verify 11/06/2021 6:00 AM EST 1 mg/min 15 mL/hr Rate/Dose Verify 11/06/2021 4:00 AM EST 1 mg/min 15 mL/h r Rate/Dose Verify 11/06/2021 2:00 AM EST 1 mg/min 15 mL/h r lisinopriL (Zestril) tablet 10 mg 10 mg, Oral, DAILY, First dose on Fri11/09/21 at 0900, Until Discontinued, Through NGT, Routine Given 11/09/2021 8:04 AM EST 10 mg lisinopriL (Zestril) tablet 20 mg 20 mg, Oral, DAILY, First dose (after last modification) on Fri11/10/21 at 0900, Until Discontinued, Routine Given 11/14/2021 9:02 AM EST 20 mg Given 11/13/2021 9:15 AM EST 20 mg Given 11/12/2021 8:34 AM EST 20 mg LORazepam (Ativan) (2 mg/mL) injection 1 mg 1 mg, Intravenous, EVERY 8 HOURS, First dose on Fri11/06/21 at 1300, Until Discontinued, Routine Given 11/07/2021 3:00 PM EST 1 mg Given 11/07/2021 5:47 AM EST 1 mg Given 11/06/2021 8:44 PM EST 1 mg LORazepam (Ativan) (2 mg/mL) injection 1 mg 1 mg, Intravenous, ONCE, 1 dose, On Fri11/09/21 at 1215, Give prior to MRI for claustrophobia, Routine Given 11/09/2021 11:34 AM EST 1 mg LORazepam (Ativan) (2 mg/mL) injection 1 mg 1 mg, Intravenous, ONCE PRN, 1 dose, Starting on Fri11/09/21 at 1205, Until Fri11/09/21 at 1245, Anxiety, if still unable to tolerate MRI after intial dose, Routine Given 11/09/2021 12:45 PM EST 1 mg LORazepam (Ativan) 2 mg/mL injection 1 dose, Starting on Fri11/09/21 at 1159, Until Fri11/09/21 at 1245, [place].: cabinet override magnesium sulfate 2 g in sterile water 50 mL infusion 2 g, Intravenous, ONCE, 1 dose, On Fri11/05/21 at 0330, Administer over 120 Minutes Rate/Dose Verify 11/05/2021 4:00 AM EST 25 mL/hr New Bag 11/05/2021 2:47 AM EST 2 g 25 mL/hr methyl salicylate-menthoL (Bengay) 15-10 % cream Topical (Top), 2 TIMES DAILY PRN, for arm pain/soreness, Starting on Fri11/11/21 at 1731, Until Fri11/14/21 at 1827 Given 11/11/2021 9:18 PM EST metroNIDAZOLE (Flagyl) 500 mg in sodium chloride 0.9% 100 mL infusion 500 mg, Intravenous, EVERY 8 HOURS SCHEDULED, First dose on Fri11/06/21 at 1930, Until Discontinued, Administer over 30 Minutes, Indication for (Active or Suspected): Anaerobic infection-Respiratory New Bag 11/08/2021 4:15 AM EST 500 mg 200 mL/hr Right Arm New Bag 11/07/2021 7:46 PM EST 500 mg 200 mL/hr Ri ght Arm New Bag 11/07/2021 12:13 PM EST 500 mg 200 mL/hr midazolam (pf) (Versed) (1 mg/mL) injection 1 mg 1 mg, Intravenous, EVERY 4 HOURS PRN, Starting on Fri11/05/21 at 0209, Until Jenelle 11/08/21 at 2050, procedures, repositioning, anxiety, For procedures, repositioning, or anxiety, Routine Given 11/05/2021 2:41 AM EST 1 mg midazolam (pf) (Versed) (1 mg/mL) injection 2 mg 2 mg, Intravenous, ONCE, 1 dose, On Fri11/06/21 at 1200, Routine Given 11/06/2021 11:12 AM EST 2 mg niCARdipine (Cardene) (0.2 mg/mL) in sodium chloride 200 mL infusion 5 mg/hr (25 mL/hr), Intravenous, CONTINUOUS, Starting on Fri11/04/21 at 2000, Until Fri11/08/21 at 1812, Routine Rate/Dose Verify 11/08/2021 6:00 AM EST 5 mg/hr 25 mL/hr New Bag 11/08/2021 4:48 AM EST 5 mg/hr 25 mL/hr Ce ntral Line Rate/Dose Verify 11/08/2021 4:00 AM EST 4 mg/hr 20 mL/h r nitroGLYcerin (Nitrostat) disintegrating tablet 0.4 mg 0.4 mg, Sublingual, EVERY 5 MIN PRN, Starting on Fri11/04/21 at 1456, Until Fri11/14/21 at 1827, Chest pain, May repeat every 5 minutes for a total of three doses. Notify provider if chest pain not relieved with nitroglycerin. Do not administer nitroglycerin if the patient has received or taken phosphodiesterase (PDE-5) inhibitors such as sildenafil, tadalafil or vardenafil within the last 24 to 72 hours., Routine Given 11/13/2021 9:55 AM EST 0.4 mg NORepinephrine (Levophed) (16 mcg/mL) in dextrose 5% 250 mL infusion 0-100 mcg/min (0-375 mL/hr), Intravenous, CONTINUOUS, Starting on Fri11/04/21 at 0855, Until Fri11/08/21 at 1812, Titrate to keep MAP greater than 65 mmHg. Start at 2 mcg/min and increase by 2 mcg/min every 3 minutes until goal reached. Do not exceed 200 mcg/min. Warning Vesicant/Irritant Medication, Routine Rate/Dose Change 11/07/2021 7:00 AM EST 0 mcg/min 0 mL/hr Rate/Dose Change 11/07/2021 6:00 AM EST 4 mcg/min 15 mL/h r Rate/Dose Change 11/07/2021 4:00 AM EST 6 mcg/min 22.5 mL /hr NORepinephrine (Levophed) 4 mg/250 mL (16 mcg/mL) infusion 1 dose, Starting on Fri11/04/21 at 0823, Until Fri11/04/21 at 0802, GABRIELA ASTORGA: cabinet override ondansetron (Zofran) tablet 4 mg 4 mg, Oral, DAILY PRN, Starting on Fri11/11/21 at 1807, Until Fri11/14/21 at 1827, Nausea, Vomiting, Routine Given 11/13/2021 4:03 AM EST 4 mg Given 11/11/2021 6:16 PM EST 4 mg polyethylene glycoL (Miralax) packet 17 g 17 g, Oral, DAILY PRN, Starting on Fri11/05/21 at 1554, Until Fri11/08/21 at 1133, Constipation, after senna, Routine Given 11/06/2021 8:00 AM EST 17 g polyethylene glycoL (Miralax) packet 17 g 17 g, Oral, 2 TIMES DAILY, First dose (after last modification) on Fri11/08/21 at 1230, Until Discontinued, Routine Given 11/09/2021 8:04 AM EST 17 g Given 11/08/2021 8:05 PM EST 17 g Given 11/08/2021 12:18 PM EST 17 g potassium chloride ER (K-Dur/Klor-Con) tablet 40 mEq 40 mEq, Oral, ONCE, 1 dose, On Fri11/11/21 at 0930, 20 mEq tablet may be dissolved in water for administration, Routine Given 11/11/2021 10:12 AM EST 40 mEq potassium chloride ER (K-Dur/Klor-Con) tablet 40 mEq 40 mEq, Oral, ONCE, 1 dose, On Fri11/12/21 at 0730, 20 mEq tablet may be dissolved in water for administration, Routine Given 11/12/2021 8:33 AM EST 40 mEq prazosin (Minipress) capsule 2 mg 2 mg, Oral, NIGHTLY, First dose on Fri11/09/21 at 2100, Until Discontinued, Routine Given 11/13/2021 9:50 PM EST 2 mg Given 11/12/2021 8:27 PM EST 2 mg Given 11/11/2021 9:24 PM EST 2 mg propofoL (Diprivan) (10 mg/mL) infusion 0-50 mcg/kg/min ? 70 kg (0-21 mL/hr), Intravenous, CONTINUOUS, Starting on Fri11/04/21 at 0913, Until Fri11/07/21 at 1703, Titrate to sedation level of RASS Goal (-)1 to 0 . Start at 20 mcg/kg/min, adjust rate by 10 mcg/kg/min every 3 minutes. Once stable, reassess patient every 30 minutes. Rate not to exceed 50 mcg/kg/minute. Change rate only after assessing and documenting RASS. Reassess sedation scores within 30 minutes after every rate change. If under sedated, increase rate by 10 mcg/kg/min. If over sedated, hold sedative until target RASS (-)1 to 0 achieved and then restart at 50% of previous rate. Call household appliances service technician if goal not achieved at maximum rate. If SAT is ordered and if patient meets criteria for Spontaneous Awakening Trial, titrate per protocol., Routine New Bag 11/07/2021 3:21 PM EST 10 mcg/kg/min 4.2 mL/hr New Bag 11/07/2021 3:05 PM EST 20 mcg/kg/min 8.4 mL/hr New Bag 11/07/2021 2:30 PM EST 30 mcg/kg/min 12.6 mL/hr propofoL (Diprivan) 10 mg/mL infusion 1 dose, Starting on Fri11/04/21 at 0729, Until Fri11/04/21 at 0802, GABRIELA ASTORGA: cabinet override senna (Senokot) tablet 8.6 mg 8.6 mg, Oral, 2 TIMES DAILY PRN, Starting on Fri11/05/21 at 1554, Until Fri11/14/21 at 1827, Constipation, Routine Given 11/09/2021 8:03 AM EST 8.6 mg Given 11/08/2021 8:05 PM EST 8.6 mg Given 11/06/2021 8:00 AM EST 8.6 mg sodium chloride 0.9 % (flush) (BD PosiFlush Normal Saline 0.9) flush 5 mL 5 mL, Intravenous, 2 TIMES DAILY, First dose on Fri11/04/21 at 2100, Until Discontinued, Routine Given 11/13/2021 9:51 PM EST 5 mLs Given 11/12/2021 8:31 PM EST 5 mLs Given 11/12/2021 8:34 AM EST 5 mLs tube feeding diet 1,300 mL, Per NG tube, at 65 mL/hr, CONTINUOUS, Starting on Fri11/08/21 at 1030, Until Fri11/09/21 at 1301, Administer flushes and check residuals per policy, Which tube feed product? Peptamen AF, Initial Rate: (mL/hr): 20, Advance by: (mL): 10, Advance every: Q4H, Goal final rate: (mL/hr): 65 Rate/Dose Verify 11/09/2021 8:00 AM EST 65 mL/hr Rate/Dose Change 11/08/2021 10:00 PM EST 65 mL/ hr Rate/Dose Change 11/08/2021 9:00 PM EST 40 mL/h r vancomycin (Vancocin) 1.5 gram in sodium chloride 0.9% 500 mL infusion 1.5 g, Intravenous, at 333.3 mL/hr, ONCE, 1 dose, On Fri11/06/21 at 0845, Maximum infusion rate is 1 gram/hour. If flushing of the face, neck, upper body, arms, and/or back occurs decrease infusion rate by 50% to reduce the severity of symptoms. This medication may have an associated drug lab level. Please see MAR for scheduled level. Warning Vesicant/Irritant Medication , Routine, Indication for (Active or Suspected): Pneumonia ([facility]) New Bag 11/06/2021 8:07 AM EST 1.5 g 333.3 mL/hr vancomycin (Vancocin) 1.5 gram in sodium chloride 0.9% 500 mL infusion 1.5 g, Intravenous, at 333.3 mL/hr, ONCE, 1 dose, On Fri11/07/21 at 0900, Maximum infusion rate is 1 gram/hour. If flushing of the face, neck, upper body, arms, and/or back occurs decrease infusion rate by 50% to reduce the severity of symptoms. This medication may have an associated drug lab level. Please see MAR for scheduled level. Warning Vesicant/Irritant Medication , STAT, Indication for (Active or Suspected): Pneumonia ([facility]) New Bag 11/07/2021 9:46 AM EST 1.5 g 333.3 mL/hr vancomycin (Vancocin) 1.5 gram in sodium chloride 0.9% 500 mL infusion 1.5 g, Intravenous, at 333.3 mL/hr, ONCE, 1 dose, On Jenelle 11/08/21 at 0000, Maximum infusion rate is 1 gram/hour. If flushing of the face, neck, upper body, arms, and/or back occurs decrease infusion rate by 50% to reduce the severity of symptoms. This medication may have an associated drug lab level. Please see MAR for scheduled level. Warning Vesicant/Irritant Medication , STAT, Indication for (Active or Suspected): Pneumonia ([facility]) New Bag 11/08/2021 12:00 AM EST 1.5 g 333.3 mL/hr vancomycin (Vancocin) 1.5 gram in sodium chloride 0.9% 500 mL infusion 1.5 g, Intravenous, at 333.3 mL/hr, EVERY 12 HOURS, First dose on Jenelle 11/08/21 at 1000, Until Discontinued, Maximum infusion rate is 1 gram/hour. If flushing of the face, neck, upper body, arms, and/or back occurs decrease infusion rate by 50% to reduce the severity of symptoms. This medication may have an associated drug lab level. Please see MAR for scheduled level. Warning Vesicant/Irritant Medication , Routine, Indication for (Active or Suspected): Pneumonia ([facility]) New Bag 11/08/2021 10:02 AM EST 1.5 g 333.3 mL/hr vasopressin 20 units in sodium chloride 0.9% 100 mL infusion 0.04-0.1 Units/min (12-30 mL/hr), Intravenous, CONTINUOUS, Starting on Fri11/05/21 at 1645, Until Fri11/07/21 at 1703, Titrate to keep systolic blood pressure greater than 90 mmHg. Start at 0.04 units/min and adjust rate by 0.005 units/min every 10 minutes. Dose not to exceed 0.4 units/min. Rate/Dose Verify 11/05/2021 6:00 PM EST 0.08 Units/min 24 mL/hr Rate/Dose Change 11/05/2021 5:48 PM EST 0.08 Units/min 24 mL/hr Rate/Dose Change 11/05/2021 5:22 PM EST 0.06 Units/min 18 mL/hr white petrolatum-mineral oiL (Eucerin) cream Topical (Top), EVERY 8 HOURS SCHEDULED, First dose on 11/04/21 at 1400, Until Discontinued Given 11/06/2021 10:00 PM EST Given 11/05/2021 1:51 PM EST white petrolatum-mineral oiL ophthalmic ointment 1 each, Both Eyes, 2 TIMES DAILY, First dose on 11/04/21 at 0914, Until Discontinued Given 11/07/2021 9:47 AM EST 1 each Given 11/06/2021 8:44 PM EST 1 each Given 11/05/2021 8:16 AM EST 1 each documented in this encounter Active and Recently Administered Medications Times are shown in EST. Scheduled Medication Order 11/12/2021 11/13/2021 11/14/2021 amLODIPine (Norvasc) tablet 10 mg 10 mg, Oral, DAILY, First dose (after last modification) on Jenelle 11/08/21 at 1100, Until Discontinued, Routine 0833 (Given - Provider: Erendira Giron RN)1328 ([facility] Hold - Provider: Admin Adt - Reason: Transfer to a Procedural area)1633 ([facility] Unhold - Provider: Admin Adt) 0915 (Given - Provider: Erendira Giron RN) 0904 (Given - Provider: Erendira Giron RN) atorvastatin (Lipitor) tablet 40 mg 40 mg, Oral, EVERY EVENING, First dose on 11/05/21 at 1700, Until Discontinued, Routine 1328 ([facility] Hold - Provider: Admin Adt - Reason: Transfer to a Procedural area)1633 ([facility] Unhold - Provider: Admin Adt)1702 (Given - Provider: Erendira Giron RN)1718 (Given - Provider: Erendira Giron RN) 1728 (Given - Provider: Erendira Giron RN) ceFEPime (Maxipime) 2g vial attach to sodium chloride 0.9% 100 mL Mini-Bag Plus 2 g (CANCELED) 2 g, Intravenous, EVERY 8 HOURS, 20 doses, First dose (after last modification) on Jenelle 11/08/21 at 0830, Last dose on 11/14/21 at 1630, Administer over 30 Minutes, Attach to 100 mL sodium chloride 0.9% Mini-Bag Plus , Indication for (Active or Suspected): Pneumonia ([facility]) / aspiration 0002 (New Bag - Provider: Danae Lowe RN)0032 (Stopped - Provider: Danae Lowe RN)0834 (New Bag - Provider: Erendira Giron RN)0904 (Stopped - Provider: Erendira Giron RN)1328 ([facility] Hold - Provider: Admin Adt - Reason: Transfer to a Procedural area)1630 (Automatically Held - Provider: Admin Adt)1633 ([facility] Unhold - Provider: Admin Adt)1703 (New Bag - Provider: Erendira Giron RN - Comment: due at 1630 per dec, auto held d/t procedure.)1733 (Stopped - Provider: Erendira Giron RN) 0020 (New Bag - Provider: Aura Lamas RN)0050 (Stopped - Provider: Aura Lamas RN)0913 (New Bag - Provider: Erendira Giron RN)0943 (Stopped - Provider: Erendira Giron RN) chlorhexidine (Peridex) 0.12 % oral solution 15 mL 15 mL, Oral, 2 TIMES DAILY, First dose on 11/04/21 at 0911, Until Discontinued, Routine 0834 (Given - Provider: Erendira Giron, SYBIL)1328 ([facility] Hold - Provider: Admin Adt - Reason: Transfer to a Procedural area)1633 ([facility] Unhold - Provider: Admin Adt)2038 (Given - Provider: Aura Lamas RN) 0900 (Not Given - Provider: Erendira Giron RN - Reason: Order parameters not met)2151 (Given - Provider: Aura Lamas RN) 0900 (Not Given - Provider: Erendira Giron RN - Reason: Order parameters not met) clonazePAM (KlonoPIN) tablet 1 mg 1 mg, Oral, 2 TIMES DAILY, First dose (after last modification) on Fri11/09/21 at 2100, Until Discontinued, Through NGT. May put ODT tabs in oral syringe with 10 cc water and give via tube once dissolved., Routine 0834 (Given - Provider: Erendira Giron RN)1328 ([facility] Hold - Provider: Admin Adt - Reason: Transfer to a Procedural area)163 ([facility] Unhold - Provider: Admin Adt)2037 (Given - Provider: Aura Lamas RN) 0915 (Given - Provider: Erendira Giron RN)2149 (Given - Provider: Aura Lamas RN) 09 (Given - Provider: Erendira Giron RN) famotidine (Pepcid) tablet 20 mg 20 mg, Oral, 2 TIMES DAILY, First dose on Fri11/04/21 at 0911, Until Discontinued, Routine 0833 (Given - Provider: Erendira Giron RN)1328 ([facility] Hold - Provider: Admin Adt - Reason: Transfer to a Procedural area)163 ([facility] Unhold - Provider: Admin Adt)2026 (Given - Provider: Aura Lamas RN) 0915 (Given - Provider: Erendira Giron RN)2149 (Given - Provider: Aura Lamas RN) 09 (Given - Provider: Erendira Giron RN) guaiFENesin ER (Mucinex) tablet 600 mg (CANCELED) 600 mg, Oral, EVERY 12 HOURS SCHEDULED (2 times per day), First dose on Fri11/09/21 at 1930, Until Discontinued, DO NOT CRUSH OR OPEN, Routine 0833 (Given - Provider: Erendira Giron RN)1328 ([facility] Hold - Provider: Admin Adt - Reason: Transfer to a Procedural area)163 ([facility] Unhold - Provider: Admin Adt)2025 (Given - Provider: Aura Lamas RN) 0915 (Given - Provider: Erendira Giron RN)215 (Given - Provider: Aura Lamas RN) 09 (Given - Provider: Erendira Giron RN) lidocaine (Lidoderm) 5% patch 3 patch(Linked Group 1) 3 patch, Transdermal, EVERY 24 HOURS, First dose on Fri11/06/21 at 1630, Until Discontinued, Apply patch(es) for 12 hours, and then remove for 12 hours., Routine 0545 (Patch Applied - Provider: Danae Lowe RN)1328 ([facility] Hold - Provider: Admin Adt - Reason: Transfer to a Procedural area)1633 ([facility] Unhold - Provider: Admin Adt) 0403 (Patch Applied - Provider: Aura Lamas RN) 0437 (Patch Applied - Provider: Aura Lamas RN) lidocaine (Lidoderm) topical patch REMOVAL(Linked Group 1) Transdermal, EVERY 24 HOURS, First dose on Fri11/07/21 at 0430, Until Discontinued, Remove lidocaine 5% patch 1328 ([facility] Hold - Provider: Admin Adt - Reason: Transfer to a Procedural area)1633 ([facility] Unhold - Provider: Admin Adt)1700 (Patch Removed - Provider: Erendira Giron RN) 1700 (Patch Removed - Provider: Erendira Giron RN) lisinopriL (Zestril) tablet 20 mg 20 mg, Oral, DAILY, First dose (after last modification) on Fri11/10/21 at 0900, Until Discontinued, Routine 0834 (Given - Provider: Erendira Giron RN)1328 ([facility] Hold - Provider: Admin Adt - Reason: Transfer to a Procedural area)1633 ([facility] Unhold - Provider: Admin Adt) 0915 (Given - Provider: Erendira Giron RN) 0902 (Given - Provider: Erendira Giron RN) potassium chloride ER (K-Dur/Klor-Con) tablet 40 mEq (COMPLETED) 40 mEq, Oral, ONCE, 1 dose, On Fri11/12/21 at 0730, 20 mEq tablet may be dissolved in water for administration, Routine 0833 (Given - Provider: Erendira Giron RN) prazosin (Minipress) capsule 2 mg 2 mg, Oral, NIGHTLY, First dose on Fri11/09/21 at 2100, Until Discontinued, Routine 1328 ([facility] Hold - Provider: Admin Adt - Reason: Transfer to a Procedural area)1633 ([facility] Unhold - Provider: Admin Adt)2027 (Given - Provider: Aura Lamas RN) 2149 (Given - Provider: Aura Lamas RN) sodium chloride 0.9 % (flush) (BD PosiFlush Normal Saline 0.9) flush 5 mL 5 mL, Intravenous, 2 TIMES DAILY, First dose on 11/04/21 at 2100, Until Discontinued, Routine 0834 (Given - Provider: Erendira Giron RN)1328 ([facility] Hold - Provider: Admin Adt - Reason: Transfer to a Procedural area)163 ([facility] Unhold - Provider: Admin Adt)2030 (Given - Provider: Aura Lamas RN) 09 (Not Given - Provider: Erendira Giron RN - Reason: See comment - Comment: duplicate)2150 (Given - Provider: Aura Lamas RN) 0900 (Not Given - Provider: Erendira Giron RN - Reason: See comment - Comment: duplicate) white petrolatum-mineral oiL (Eucerin) cream Topical (Top), EVERY 8 HOURS SCHEDULED, First dose on 11/04/21 at 1400, Until Discontinued 0600 (Not Given - Provider: Danae Lowe RN - Reason: Contraindicated)1328 ([facility] Hold - Provider: Admin Adt - Reason: Transfer to a Procedural area)1400 (Not Given - Provider: Erendira Giron RN - Reason: Transfer to a Procedural area)163 ([facility] Unhold - Provider: Admin Adt)0 (Not Given - Provider: Aura Lamas RN - Reason: Patient/family refused) 0600 (Not Given - Provider: Aura Lamas RN - Reason: Patient/family refused)1400 (Not Given - Provider: Erendira Giron RN - Reason: See comment)2200 (Not Given - Provider: Aura Lamas RN - Reason: Patient/family refused) 0600 (Not Given - Provider: Aura Lamas RN - Reason: Patient/family refused)1400 (Not Given - Provider: Erendira Giron RN - Reason: Patient/family refused) white petrolatum-mineral oiL ophthalmic ointment 1 each, Both Eyes, 2 TIMES DAILY, First dose on 11/04/21 at 0914, Until Discontinued 0900 (Not Given - Provider: Erendira L Kiessling, RN - Reason: Order parameters not met)1328 ([facility] Hold - Provider: Admin Adt - Reason: Transfer to a Procedural area)1633 ([facility] Unhold - Provider: Admin Adt)2100 (Not Given - Provider: Aura Lamas RN - Reason: Patient/family refused) 0900 (Not Given - Provider: Erendira Giron RN - Reason: Order parameters not met)2100 (Not Given - Provider: Aura Lamas RN - Reason: Patient/family refused) 0900 (Not Given - Provider: Erendira Giron RN - Reason: Order parameters not met) PRN Medication Order 11/12/2021 11/13/2021 11/14/2021 acetaminophen (Tylenol) tablet 650 mg 650 mg, Oral, EVERY 6 HOURS PRN, Starting on Jenelle 11/08/21 at 1147, Until Fri11/14/21 at 1827, Pain, Maximum dose of acetaminophen is 4000 mg from all sources in 24 hours. When ordered for pain, acetaminophen should be given even when other ordered pain medications are indicated. , Routine 0245 (Given - Provider: Danae Lowe RN)0833 (Given - Provider: Erendira Giron RN)1328 ([facility] Hold - Provider: Admin Adt - Reason: Transfer to a Procedural area)1554 ([facility] Unhold - Provider: Zora Booth RN)1556 (Given - Provider: Zora Booth RN) 0021 (Given - Provider: Aura Lamas RN)1248 (Given - Provider: Erendira Giron, SYBIL)1728 (Given - Provider: Erendira Giron, SYBIL) 0601 (Given - Provider: Aura Lamas RN)1121 (Given - Provider: Erendira Giron, SYBIL) alum-mag hydroxide-simeth (Maalox) (40 mg-40 mg-4 mg/mL) oral liquid 10 mL 10 mL, Oral, 3 TIMES DAILY PRN, Starting on 11/13/21 at 0921, Until Fri11/14/21 at 1827, Heartburn, Routine clonazePAM (KlonoPIN) tablet 0.5 mg 0.5 mg, Oral, DAILY PRN, Starting on 11/10/21 at 1754, Until Fri11/14/21 at 1827, Anxiety, for BP >180 or HR >115, Through NGT. May put ODT tabs in oral syringe with 10 cc water and give via tube once dissolved., Routine 0001 (Given - Provider: Danae Lowe RN)1328 ([facility] Hold - Provider: Admin Adt - Reason: Transfer to a Procedural area)1633 ([facility] Unhold - Provider: Admin Adt)2026 (Not Given - Provider: Aura Lamas RN - Reason: See comment - Comment: wasted) hydrOXYzine (Atarax) tablet 50 mg 50 mg, Oral, 3 TIMES DAILY PRN, Starting on 11/11/21 at 1806, Until 11/14/21 at 1827, Anxiety, Routine 1328 ([facility] Hold - Provider: Admin Adt - Reason: Transfer to a Procedural area)1633 ([facility] Unhold - Provider: Admin Adt) ibuprofen (Advil) tablet 600 mg 600 mg, Oral, EVERY 8 HOURS PRN, Starting on Jenelle 11/08/21 at 2100, Until 11/14/21 at 1827, Pain, Administer orally with milk or food to minimize GI irritation. Maximum dose of 3,200 mg from all sources in 24 hours, Routine 0518 (Given - Provider: Danae Lowe RN)1328 ([facility] Hold - Provider: Admin Adt - Reason: Transfer to a Procedural area)1633 ([facility] Unhold - Provider: Admin Adt)1702 (Given - Provider: Erenidra Giron RN)1717 (Not Given - Provider: Erendira Giron RN - Reason: See comment - Comment: dulicate order) 0125 (Given - Provider: Aura Lamas RN)1248 (Given - Provider: Erendira Giron RN)2150 (Given - Provider: Aura Lamas RN) 1121 (Given - Provider: Erendira Giron RN) methyl salicylate-menthoL (Bengay) 15-10 % cream Topical (Top), 2 TIMES DAILY PRN, for arm pain/soreness, Starting on 11/11/21 at 1731, Until 11/14/21 at 1827 1328 ([facility] Hold - Provider: Admin Adt - Reason: Transfer to a Procedural area)1633 ([facility] Unhold - Provider: Admin Adt) nitroGLYcerin (Nitrostat) disintegrating tablet 0.4 mg 0.4 mg, Sublingual, EVERY 5 MIN PRN, Starting on 11/04/21 at 1456, Until Fri11/14/21 at 1827, Chest pain, May repeat every 5 minutes for a total of three doses. Notify provider if chest pain not relieved with nitroglycerin. Do not administer nitroglycerin if the patient has received or taken phosphodiesterase (PDE-5) inhibitors such as sildenafil, tadalafil or vardenafil within the last 24 to 72 hours., Routine 1328 ([facility] Hold - Provider: Admin Adt - Reason: Transfer to a Procedural area)1633 ([facility] Unhold - Provider: Admin Adt) 0955 (Given - Provider: Erendira Giron, SYBIL) ondansetron (Zofran) tablet 4 mg 4 mg, Oral, DAILY PRN, Starting on 11/11/21 at 1807, Until Fri11/14/21 at 1827, Nausea, Vomiting, Routine 1328 ([facility] Hold - Provider: Admin Adt - Reason: Transfer to a Procedural area)1633 ([facility] Unhold - Provider: Admin Adt) 0403 (Given - Provider: Aura Lamas RN) senna (Senokot) tablet 8.6 mg 8.6 mg, Oral, 2 TIMES DAILY PRN, Starting on 11/05/21 at 1554, Until Fri11/14/21 at 1827, Constipation, Routine 1328 ([facility] Hold - Provider: Admin Adt - Reason: Transfer to a Procedural area)1633 ([facility] Unhold - Provider: Admin Adt) sodium chloride 0.9 % (flush) (BD PosiFlush Normal Saline 0.9) flush 5-20 mL 5-20 mL, Intravenous, EVERY 1 MIN PRN, Starting on 11/04/21 at 1456, Until Fri11/14/21 at 1827, flush, Flush pertains to all indwelling lines. Flush per protocol found in the job aid using the link provided on this medication record., Routine 1328 ([facility] Hold - Provider: Admin Adt - Reason: Transfer to a Procedural area)1633 ([facility] Unhold - Provider: Admin Adt) Linked Groups Order Group 1: lidocaine (Lidoderm) 5% patch 3 patchJump to med 3 patch, Transdermal, EVERY 24 HOURS, First dose on Fri11/06/21 at 1630, Until Discontinued, Apply patch(es) for 12 hours, and then remove for 12 hours., Routine And lidocaine (Lidoderm) topical patch REMOVALJump to med Transdermal, EVERY 24 HOURS, First dose on Fri11/07/21 at 0430, Until Discontinued, Remove lidocaine 5% patch documented in this encounter Additional Health Concerns Infection Onset Date Last Indicated Resolved Time Rule Out COVID-19 11/04/2021 11/04/2021 11/04/2021 12:46 PM EST documented as of this encounter Care Teams Larriman Helper Relationship Specialty Start Date End Date Kenia Lawrence APRN [address] [place] [address] PCP - General Family Medicine 10/10/21 05/20/22 documented as of this encounter
--- OUTSIDE RECORDS SUMMARY | 2024-09-20 11:12 | XMS_ITS | Encounter Summary ---
Author Organization [facility] [place] [address] Care Team Providers Care Monitoring Manager Name Role Phone Kenia Lawrence CENTRAL OFFICE OPERATOR SUPERVISOR Primary Care Provider [phone] Reason for Visit * Reason Onset Date Comments Other 11/13/2021 Carediac Device Implant Teaching/Education Encounter Details Date Type Department Care Team (Late st Contact Info) Description 11/13/2021 Notes Only Cardiology at [address] [phone] [place] Other (Carediac Device Implant Teaching/Education) Social History Tobacco Use Types Packs/Day Years [...] Progress Notes * [place] LNA - 11/13/2021 9:34 AM EST Cardiac Electrophysiology Device Clinic - Post Implant Teaching Note Aniya A Ene : 1985 AGE: 36 y.o. Education: Reviewed the following topics with patient. - Implant ID card - Implant manual - Electromagnetic Compatibility (EMC) - Remote monitoring Answered all questions and provided implant folder containing written materials of the above topics. Patient did not demonstrate understanding and was instructed to call the Cardiac Device Clinic at [phone] with any questions. Plan: Post op check: 11/28/2021 day check: 02/13/2022 Remote monitor: Latitude monitor is on back order. Patient will be sent one as soon as they come in. KENDRICK Barnett 11/13/21 documented in this encounter Plan of Treatment Upcoming Encounters Date Type Department Care Team (Late st Contact Info) Description 09/21/2024 8:15 AM EST Routine Obstetrics [place] [phone] Emili Cabrera MD [facility] [place] [address] 09/26/2024 6:00 PM EST Appointment [facility] [place] [phone] 10/16/2024 Hospital Encounter [place] [phone] Dudley Aguilar MD [facility] [address] OBSTET[place]ICS [place] [address] 11/08/2024 10:00 AM EST Hospital Encounter Non-Invasive [place] [phone] Arrived documented as of this encounter Visit Diagnoses Not on filedocumented in this encounter Care Teams Monitoring Manager Relationship Specialty Start Date End Date Kenia Lawrence APRN [address] [place] [address] PCP - General Family Medicine 10/10/21 05/20/22 documented as of this encounter
--- OUTSIDE RECORDS SUMMARY | 2024-09-20 11:14 | XMS_ITS | Encounter Summary ---
Author Organization [facility] [place] [address] Care Team Providers Care Parachute Repairer Name Role Phone MelindaKenia ford ADRIAN Primary Care Provider [phone] Reason for Visit * Reason Comments Cardiac Arrest * Auth/Cert Specialty Diagnoses / Procedures Referred By Nellie t Referred To Contact Diagnoses Cardiac arrest Procedures PRO INPT INITIAL COMP/COMP/HIGH 70 MIN ER IPI Referral ID Status Reason Start Date Expiration Date Visits Re quested Visits Authorized [id number] 1 1 Encounter Details Date Type Department Care Team (Late st Contact Info) Description 11/12/2021 1:00 PM EST - 11/12/2021 4:00 PM EST Surgery [place] [address] Pantera Denton MD [facility] [place] [address] ELECTROPHYSIOLOGY PROCEDURE Social History Tobacco Use Types Packs/Day Years [...] Sign Reading Time Taken Comments Blood Pressure 104/71 11/12/2021 4:00 PM EST Pulse 66 11/12/2021 4:00 PM EST Temperature 36.5 ??C (97.7 ??F) 11/12/2021 3:38 PM ES T Respiratory Rate 30 11/12/2021 4:00 PM EST Oxygen Saturation 96% 11/12/2021 4:00 PM EST Inhaled Oxygen Concentration - - Weight 72.2 kg (159 lb 2.8 oz) 11/12/2021 5:43 A M EST Height 162.6 cm (5' 4.02) 11/04/2021 8:00 AM ES T Body Mass Index 27.5 11/04/2021 8:00 AM EST documented in this encounter Discharge Summaries * Prashant Johnson - 11/14/2021 3:28 PM EST Discharge Summary Patient Name: Aniya Lundy Patient Age: 36 y.o. Language: Taiwanese Race: White Ethnicity: Not nor Admit date: [...] please contact your inpatient physician through the [facility] Quality Compliance Coordinator . Issues afterhours and on weekends will [...] months. ??Aniya had a recent visit to [facility] ED in mid September with sharp chest [...] no further episodes of [place]. Transferred to [facility]; nicardipine ggt added for vasospasm; She [...] as: Duoneb Every 6 hours. Refills: 0 sdtitwzvv-fxmrfluil-rh-mag-sim 304-65-871-40 mg/30 mL Susp Take by mouth. 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 We started you on medications to prevent spasm and [facility]. We started you on medication [...] Center 11/28/2021 4:00 PM Shannon Verdin RN [address] 02/13/2022 10:30 AM Shannon Verdin RN [address] Your Inpatient Medical Team: MD Shana Turner MD, MD, MD Your Primary Care Provider: Kenia Lawrence, HEMATOLOGY TECHNOLOGIST [phone] For questions regarding this document or issues relating to this hospitalization on the Medical Service, please contact your inpatient physician through the [facility] Quality Compliance Coordinator . Issues afterhours and on weekends will be handled by the Hospitalist staff on-call. General Instructions - BEGIN EP DISCHAGRE INSTRUCTIONS - FINAL S-ICD RECOMMENDATIONS: 1. Standard post implant discharge instructions (see below): 2. Medications as listed above. 3. You may use ice packs over the incision. Make sure to use a machine clothing worker (such as a towel) in between the [...] if you have any personal concerns, contact [facility] Electrophysiology at [phone]. Do not attempt to readjust the Clozex?? [...] F. The office scheduling phone number is [phone]. ARM MOVEMENT RESTRICTIONS POST-IMPLANT - Do not [...] this product, please call the office at [phone]. - END EP DISCHARGE INSTRUCTIONS - Future Appointments and Orders Future Appointments and Orders Future Appointments Provider Department Dept Phone 11/28/2021 4:00 PM Shannon Verdin RN Cardiology at [facility] Arrive at: Change Analyst Area [phone] 02/13/2022 10:30 AM Shannon Verdin RN Cardiology at [facility] Arrive at: Change Analyst Area [phone] Future Orders Complete By Expires CT Angiogram Coronary Arteries [DMM1961 Custom] 11/21/2021 02/12/2022 Process Instructions: Scheduling Instructions: Questions: Clinical information / steiner questions for radiologist: Out of hospital Vfib arrest from vasospasms. CT coronary for evaluation of cornary disease. Do you want to report a missing reason for exam?: Where will study be performed?: [facility] Radiology Is the patient ?: No Stat read required?: Does patient require sedation?: GA rationale: Date of injury if applicable: Referral to Home Health - at DISCHARGE [YSF7974 CPT(R)] As directed Process Instructions: Scheduling Instructions: Comments: DOCUMENTATION FOR VNA SERVICES (INCLUDING THOSE PATIENTS WITH MEDICARE COVERAGE REQUIRING HOME VNA SERVICES AND/OR HOSPICE SERVICES) PATIENT'S LOCATION: Aniya Lundy [address] [facility] [address] Client Strategist's Name: Self and Mother Shannon [place] [phone] In discussion with the attending physician, it is certified that this patient is under their care and that they, or a Nurse Practitioner, or Physician Hospice Liaison who is working directly with them, hada [...] AGENCY: [facility] PHONE: [phone] FAX: [phone] RN orders: Cardiopulmonary assessment, incisional assessment, assess [...] issues please call the Cardiac SurgeryOffice at [phone] FOR MEDICARE ONLY: In discussion with the [...] noted. Questions: Agency name and contact information: [facility] Patient location post discharge: home What services [...] the incision. Make sure to use a machine clothing worker (such as a towel) in between the [...] if you have any personal concerns, contact [facility] Electrophysiology at [phone]. Do not attempt to readjust the Clozex?? [...] F. The office scheduling phone number is [phone]. ARM MOVEMENT RESTRICTIONS POST-IMPLANT - Do not [...] this product, please call the office at [phone]. 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 We started you on medications to prevent spasm and you [facility]. We started you on medication [...] Center 11/23/2021 2:00 PM Valorie Obrien MD [facility] CARD 4A [facility] 11/28/2021 4:00 PM Shannon Verdin, [facility] 4A [facility] 02/13/2022 10:30 AM Shannon Verdin RN [address] Your Inpatient Medical Team: MD Shana Turner MD, MD, MD Your Primary Care Provider: Kenia Lawrence, HEMATOLOGY TECHNOLOGIST [phone] For questions regarding this document or issues relating to this hospitalization on the Medical Service, please contact your inpatient physician through the [facility] Quality Compliance Coordinator . Issues afterhours and on weekends will [...] 08/24/2021 08/12/2023 fluticasone (Flonase Sensimist) 27.5 mcg/actuation Palmer, Suspension every 24 hours. 09/06/2021 11/16/2021 mag/aluminum/sod [...] EST IV and telemetry discontinued as ordered. registered diet technician by to speak w/ patient, mother bedside, regardingdevice. Reviewed medications, post device restrictions, and follow up appointments, mother bedside.Questions answered. VNA referral faxed, spoke with Heriberto confirming receipt. Discharged off floor via WC to home. * Dianna Tomlinson, UTILITY MECHANIC SUPERVISOR - 11/14/2021 2:51 PM EST Speech-Language Pathology Consult Note Pt upgraded to regular diet yesterday. Tolerating well as per RN and getting ready for DC. No further acute UTILITY MECHANIC SUPERVISOR needs identified. UTILITY MECHANIC SUPERVISOR will sign off at this time. Dianna Tomlinson MA [facility]-UTILITY MECHANIC SUPERVISOR Inpatient Rehabilitation Medicine pager:# [phone] * Shira Salcido, PT - 11/14/2021 10:00 [...] complications, regular diet Social History: lives in [place], [place] and her boyfriend, Dk, occasionally stays with her; works at [employer] in [place], [place]; per chart, she has 3 children, [...] shows eagerness to go home. Spoke with binder caser about her need for FWW and bedside [...] signs. met ?? Time IN / OUT: 0930 - 1000 Total Minutes, Physical Therapy: 30 Minoo Angel, SHEILA Physical Therapy Inpatient Rehabilitation Department Chart was reviewed and I was present throughout the above therapy session with Minoo Angel, Student Physical Therapist. I have reviewed and agree with the above documentation and plan of care. SHIRA SALCIDO, PT Pager [phone] * Erendira Giron RN - 11/13/2021 5:06 [...] Call light within reach. * Cammie Pruitt N - 11/13/2021 4:49 PM EST Nutrition Services [...] Ms Lundy underwent successful implantation of a [employer] sub-cutaneous ICD yesterday without complications. She [...] Tab Every 8 hours. Generic drug: clonazePAM vknjkgzae-glsqusnzi-zs-mag-sim 945-12-128-40 mg/30 mL Susp Take by mouth. lisinopriL [...] Neuro- A&Ox3, anxious appearing Device Interrogation: Generator: [employer] A219 EMBLEM??? MRI S-ICD / [id number] Electrode: 3501 / [id number] Current Device Settings Therapy: ON Shock Zone: [...] - EP will sign off. Please page [phone] with questions or concerns. EDEN White 11/13/2021 [...] by Agnes Wayne. Devin Ricci MD, PhD, [facility] Cardiac Electrophysiology * Roz Pisano MSW - 11/13/2021 2:23 PM EST Patient has been seen face to face by 2 SURVEY CHIEF to discuss safety concerns.Given safety resources by a third SURVEY CHIEF.And a 4th SURVEY CHIEF spoke to her zay as he was upset about doing cpr on her for 10 minutes before help arrived.Also, patients Mother was spoken to by SI team. Neither patient nor her Mother gave any information that patient was feeling unsafe at home at thistime.She is aware of what resources to call if she needs assistance. Roz Pisano MSW,[facility] [id number] * Roz Pisano MSW - 11/13/2021 2:15 PM EST SURVEY CHIEF referral placed due to patients concern about [...] Hospital Policy at this time. Roz Pisano MSW,DUMPSTER OPERATOR [id number] * Shira Salcido, PT - 11/13/2021 [...] now on [employer]. Social History: lives in [place], [place] and her boyfriend, Dk, occasionally stays with her; works at [employer] in [place], [place]; per chart, she has 3 children, [...] signs. met ?? Time IN / OUT: 1362-7975 Total Minutes, Physical Therapy: 47 (fm x 1) SHIRA SALCIDO PT Pager: [phone] Physical Therapy Inpatient Rehabilitation Department * Dianna Tomlinson, UTILITY MECHANIC SUPERVISOR - 11/13/2021 10:59 AM EST Speech Therapy [...] Pt was seen today for a follow-up UTILITY MECHANIC SUPERVISOR visit. AMS, voice, and swallow have all [...] and safe swallowing strategies. Plan: Therapy Frequency (UTILITY MECHANIC SUPERVISOR Eval): 1-3 times/wk Pt./family are in agreement with treatment plan. Total Minutes (Speech Language Pathology): 24 Dianna Tomlinson MA, CCC-UTILITY MECHANIC SUPERVISOR Pager: [phone] Speech-Language Pathology Inpatient Rehabilitation Medicine * Linus Tatiana Cherry, OT - 11/13/2021 10:33 AM EST Occupational [...] ENDOSCOPY performed by Dudley Alva MD at [facility] ENDOSCOPY Social History: Patient lives [...] Pt will complete toileting routine at modified beverly including transfer to the bathroom, clothing management, [...] Discharge planning. Total Minutes, Occupational Therapy: 57 2017 OT Evaluation Code Rationale: ?? Diagnosis & [...] and measurable assessment of functional outcome. Pager: [phone] Tatiana Barriga OT 11/13/2021 Occupational Therapy Rehabilitation Department * Shana Zurita MD - 11/13/2021 5:55 AM EST Images from the original note were not included. Cardiology Progress Note?? Patient info: Name: Aniya Lundy : 1985 PCP: Kenia Lawrence APRN PCP phone number: [phone] Date of Admission: 11/04/2021 ( Hospital Day [...] Social work/bit team following. - PT and UTILITY MECHANIC SUPERVISOR reassessment pending Overnight: -- NAEO This AM: - Reports feeling OK today. [...] 1759 PHART 7.34* 7.23* 7.25* 7.24* 7.23* RLO5PSR 37 46* 40 42 43 PO2ART 88 90 117* 80* 71* QVR2MZB 19.2* 18.6* 17.0* 17.6* 17.6* LACTATEVEN 0.6 0.4* 0.5 0.9 1.7 LNS2ZOS 40 50 70 80 70 PFRATIOART2 220 180 167 100 101 VBG (Venous Blood Gas) Recent Labs 11/07/21 0940 11/07/21 0630 11/07/21 0207 11/06/21 2044 11/06/21 1759 LACTATEVEN 0.6 0.4* 0.5 0.9 1.7 Mixed Venous Sat No results for input(s): N1UTBX7 in the last 168 hours. Microbiology: Microbiology Results (Last 30 days) Procedure Component Value Units Date/Time MRSA PCR [[id number]] Collected: 11/08/21 1010 Lab Status: Final result Specimen: Nasopharyngeal Swab Updated: 11/09/21 0806 MRSA Result Negative MRSA Interp -- Negative for methicillin-resistant Staphylococcus aureus (MRSA) This test was performed using the [employer]?? Dx System and the Xpert MRSA Assay. The MRSA target DNA was not detected. The sample processing control and probe check were valid. The performance of this test was determined by the [facility] Molecular Pathology Laboratory. It has been cleared by the U.S. Food and Drug Administration for clinical use. Comment: [VERIFIED DATE]11.09.21 Verified By:Dudley Cook (Electronic Signature) Blood culture [[id number]] Collected: 11/06/211999 Lab Status: Final result Specimen: Blood from Hand, Left Updated: 11/11/21 2301 Blood Culture No growth at 5 days. Blood culture [[id number]] Collected: 11/06/21 1847 Lab Status: Final result Specimen: Blood Updated: 11/11/21 2301 Blood Culture No growth at 5 days. Lower Respiratory Culture Tracheal Aspirate [[id number]] Collected: 11/06/21 1220 Lab Status: Final result Specimen: Tracheal Aspirate Updated: 11/09/21 1041 Lower Respiratory Culture Many mixed bacterial morphotypes suggestive of normal upper respiratory al Gram Stain -- Many Neutrophils seen Few squamous epithelial cells seen Many mixed bacterial morphotypes suggestive of normal upper respiratory al Blood culture [[id number]] Collected: 11/04/21 2250 Lab Status: Final result Specimen: Blood from Hand, Right Updated: 11/10/21 07 Blood Culture No growth at 5 days. Blood culture [[id number]] Collected: 11/04/21 2215 Lab Status: Final result Specimen: Blood from Antecubital, Right Updated: 11/10/21 0701 Blood Culture No growth at 5 days. COVID-19 PCR [[id number]] Collected: 11/04/21 0735 Lab Status: Final result [...] using the Simplexa COVID-19 Direct Assay by [employer] as authorized by the FDA issued Emergency [...] Department of Pathology and Laboratory Medicine at [facility], certified under the Clinical Laboratory Improvement Amendments [...] fact sheets at the following FDA website: https://www.fda.gov/medical-devices/pwlpupztxdc-tdkuabm-3389-foyap-03-vuamirlhq- jqe-asvenjmhyadsri-uhrtsdh-devices/nbnhd-ukvwxaemcuc-ziqq SARS-CoV-2 Source RESILIENT TILE INSTALLER Swab Imaging: Results for orders placed or [...] requested your imaging first. Electronically signed by: JIM CARL MD, [facility] ([phone]), at 11/04/2021 10:18 AM XR Abdomen 1 view (Generic) (Exam End: 11/04/2021 10:09 AM) Impression Orogastric tube placement, as above. Thank you for letting us participate in the care of this patient. If you are a health care provider and have any questions regarding this report, please contact the number below. For patients who have questions please contact the health childcare center director that requested your imaging first. Head wo [...] requested your imaging first. Electronically signed by: Alejo Garcia MD, [facility] ([phone]), at 11/04/2021 9:[address] Angiogram Chest for Pulmonary Embolus w [...] requested your imaging first. Electronically signed by: JIM CARL MD, [facility] ([phone]), at 11/04/2021 9:52 AM XR Chest One View (Exam End: 11/04/2021 8:22 [...] first. Electronically signed by: Jennifer Bassett MD, [facility] ([phone]), at 11/04/2021 8:53 PM XR Chest One View (Exam End: 11/05/2021 8:40 [...] requested your imaging first. Electronically signed by: Danielle Rausch MD, [facility] ([phone]), at 11/05/2021 9:48 AM XR Chest One View (Exam End: 11/06/2021 6:36 [...] first. Electronically signed by: Kimberley Pichardo MD, [facility] ([phone]), at 11/06/2021 6:47 AM XR Chest One [...] requested your imaging first. Electronically signed by: Danielle Rausch MD, [facility] ([phone]), at 11/07/2021 9:56 AM XR Chest One View (Exam End: 11/07/2021 9:16 [...] first. Electronically signed by: Dinh Becerril MD, [facility] ([phone]), at 11/07/2021 9:33 AM XR Abdomen 1 view (Generic) (Exam End: 11/07/2021 [...] imaging first. Electronically signed by: Chandrakant Pena MD, [facility] ([phone]), at 11/07/2021 11:43 AM XR Chest PA & Lateral (Generic) (Exam End: [...] requested your imaging first. Electronically signed by: Cyn Bhakta MD, [facility] ([phone]), at 11/12/2021 8:12 AM XR Chest PA & Lateral (Generic) (Exam End: [...] first. Electronically signed by: Monie Becerril MD, [facility] ([phone]), at 11/13/2021 8:08 AM Medications Scheduled Meds: ??? lisinopriL 20 mg [...] today (has stairs at home) and have UTILITY MECHANIC SUPERVISOR repeat swallow study to see if she [...] not listen to her and was condescending.This conventional mortgage underwriter asked her permission to talk to the team and see if they could come back and talk to her before the procedure to eleviate some of her concerns.She gave this conventional mortgage underwriter permission to talk to the team. Patient also expressed her frustration with not being allowed to have her family come to see her.Patient reported that she was safe at home but her fiance doing cpr on her for 10 minutes has done something to his head she reported.(he did speak to SURVEY CHIEF at length) Patient states she is safe at home and her fiance stays with her once stuart while but not all of the time because he is on probation and has his own apartment. PLAN Spoke to attending who will speak to patient before the procedure to try and assure her of her fears. Roz PATIÑO,[facility] [id number] * Carolina Delvalle OT - 11/12/2021 1:00 PM EST Occupational Therapy Note Document Type: (P) contact Total Minutes, Occupational Therapy: (P) 0 Reason: OT order received, chart reviewed. Pt going for ICD placement this afternoon. OT will monitor and follow up as indicated/appropriate. Pager: [phone] Carolina Delvalle OT 11/12/2021 Occupational Therapy Rehabilitation [...] 0.9% 100 mL Mini-Bag Plus 2 g UiksbyumrkhL1S ??? amLODIPine 10 mg Oral Daily ??? [...] A&Ox3, anxious appearing Lab Comments: Recent Labs 11/12/21 0448 11/11/21 0442 11/09/21 0040 WBC 10.6* 11.5* 16.5* HGB 9.7* 10.5* 10.5* HCT 30.2* 32.0* 32.0* PLATELET 343 331 237 Recent Labs 11/06/21 0425 INR 1.1 Recent Labs 11/12/21 0448 11/11/21 0442 11/09/21 0040 NA 140 141 138 K 3.5 3.4* 3.5 CL 105 104 103 CO2 23 21* 24 BUN 17 23* 22* CREATININE 0.87 0.92 0.84 Recent Labs 11/06/21 0425 AST 107* ALT 64* ALKPHOS 61 BILITOT 0.2 BILIDIR 0.2 Recent Labs 11/12/21 0448 11/11/21 1841 11/11/21 0442 11/10/21 1807 11/09/21 1824 [...] address w/ Anesthesia. Devin Ricci MD, PhD, [facility] Cardiac Electrophysiology * Shana Zurita MD - 11/12/2021 5:51 AM EST Images from the original note were not included. Cardiology Progress Note?? Patient info: Name: Aniya Lundy : 1985 PCP: Kenia Lawrence APRN PCP phone number: [phone] Date of Admission: 11/04/2021 ( Hospital Day [...] Eager to advance to regular diet; pending UTILITY MECHANIC SUPERVISOR eval. - EP plan for ICD under GA - Social work/bit team following. - Gave tylenol + topical bengay cream for arm pain. Overnight: -- LISEO This AM: -Reports feeling OK today, had [...] intact. 4/5 BUE weakness. Labs: Recent Labs 11/12/218 11/11/21 0442 11/09/21 0040 11/08/21 0430 11/07/21 [...] 1759 PHART 7.34* 7.23* 7.25* 7.24* 7.23* XPK2IYD 37 46* 40 42 43 PO2ART 88 90 117* 80* 71* NOP0RSB 19.2* 18.6* 17.0* 17.6* 17.6* LACTATEVEN 0.6 0.4* 0.5 0.9 1.7 TBK1DYJ 40 50 70 80 70 PFRATIOART2 220 180 167 100 101 VBG (Venous Blood Gas) Recent Labs 11/07/21 0940 11/07/21 0630 11/07/21 0207 11/06/21204311/06/21 1759 LACTATEVEN 0.6 0.4* 0.5 0.9 1.7 Mixed Venous Sat No results for input(s): B1HNOB1 in the last 168 hours. Microbiology: Microbiology Results (Last 30 days) Procedure Component Value Units Date/Time MRSA PCR [[id number]] Collected: 11/08/21 1010 Lab Status: Final result [...] of this test was determined by the [facility] Molecular Pathology Laboratory. It has been cleared by the U.S. Food and Drug Administration for clinical use. Comment: [VERIFIED DATE]11.09.21 Verified By:Dudley Cook (Electronic Signature) Blood culture [[id number]] Collected: 11/06/211999 Lab Status: Final result Specimen: Blood from Hand, Left Updated: 11/11/21 2301 Blood Culture No growth at 5 days. Blood culture [[id number]] Collected: 11/06/21 1847 Lab Status: Final result Specimen: Blood Updated: 11/11/21 2301 Blood Culture No growth at 5 days. Lower Respiratory Culture Tracheal Aspirate [[id number]] Collected: 11/06/21 1220 Lab Status: Final result Specimen: Tracheal Aspirate Updated: 11/09/21 1041 Lower Respiratory Culture Many mixed bacterial morphotypes suggestive of normal upper respiratory al Gram Stain -- Many Neutrophils seen Few squamous epithelial cells seen Many mixed bacterial morphotypes suggestive of normal upper respiratory al Blood culture [[id number]] Collected: 11/04/21 2250 Lab Status: Final result Specimen: Blood from Hand, Right Updated: 11/10/21 0701 Blood Culture No growth at 5 days. Blood culture [[id number]] Collected: 11/04/21 2215 Lab Status: Final result Specimen: Blood from Antecubital, Right Updated: 11/10/21 0701 Blood Culture No growth at 5 days. COVID-19 PCR [[id number]] Collected: 11/04/21 0735 Lab Status: Final result [...] using the Simplexa COVID-19 Direct Assay by [employer] as authorized by the FDA issued Emergency [...] Department of Pathology and Laboratory Medicine at [facility], certified under the Clinical Laboratory Improvement Amendments [...] fact sheets at the following FDA website: https://www.fda.gov/medical-devices/gmwgayozcbf-qltvwyj-7946-vlsgh-47-sliyknxou- csa-bhfxrxdrefwnan-bcoanhq-devices/itsmy-mbdzedaycfd-fpls SARS-CoV-2 Source RESILIENT TILE INSTALLER Swab Imaging: Results for orders placed or [...] requested your imaging first. Electronically signed by: JIM CARL MD, [facility] ([phone]), at 11/04/2021 10:18 AM XR Abdomen 1 view (Generic) (Exam End: 11/04/2021 [...] requested your imaging first. Electronically signed by: JIM CARL MD, [facility] ([phone]), at 11/04/2021 10:[address] Head wo Contrast (Generic) (Exam End: 11/04/2021 [...] requested your imaging first. Electronically signed by: Alejo Garcia MD, [facility] ([phone]), at 11/04/2021 9:[address] Angiogram Chest for Pulmonary Embolus w [...] requested your imaging first. Electronically signed by: JIM CARL MD, [facility] ([phone]), at 11/04/2021 9:52 AM XR Chest One View (Exam End: 11/04/2021 8:22 PM) Impression 1. Lines and tubes as above. 2. Small left pleural effusion and left basilar atelectasis, compatible with expected postprocedural changes. I have personally reviewed the image(s) and the resident's interpretation and agree with the findings, Jennifer aBssett MD at 11/04/2021 8:53 PM Thank you for letting us participate in the care of this patient. If you are a health care provider and have any questions regarding this report, please contact the number below. For patients who have questions please contact the health childcare center director that requested your imaging first. Electronically signed by: Jennifer Bassett MD, [facility] ([phone]), at 11/04/2021 8:53 PM XR Chest One View (Exam End: 11/05/2021 8:40 [...] requested your imaging first. Electronically signed by: Danielle Rausch MD, [facility] ([phone]), at 11/05/2021 9:48 AM XR Chest One View (Exam End: 11/06/2021 6:36 [...] first. Electronically signed by: Kimberley Pichardo MD, [facility] ([phone]), at 11/06/2021 6:47 AM XR Chest One [...] requested your imaging first. Electronically signed by: Danielle Rausch MD, [facility] ([phone]), at 11/07/2021 9:56 AM XR Chest One View (Exam End: 11/07/2021 9:16 [...] first. Electronically signed by: Dinh Becerril MD, [facility] ([phone]), at 11/07/2021 9:33 AM XR Abdomen 1 view (Generic) (Exam End: 11/07/2021 [...] imaging first. Electronically signed by: Chandrakant Pena MD, [facility] ([phone]), at 11/07/2021 11:43 AM XR Chest PA & Lateral (Generic) (Exam End: [...] requested your imaging first. Electronically signed by: Cyn Bhakta MD, [facility] ([phone]), at 11/12/2021 8:12 AM Medications Scheduled Meds: ??? lisinopriL 20 mg Oral Daily ??? prazosin 2 mg Oral Nightly ??? clonazePAM 1 mg Oral BID ??? guaiFENesin ER 600 mg Oral 2 times per day ??? ceFEPime (Maxipime) 2g vial attach to sodium chloride 0.9% 100 mL Mini-Bag Plus 2 g KwqzknknkvkA2V ??? amLODIPine 10 mg Oral Daily ??? [...] on telemetry 80-105. Uneventful day. NPO at [place] for possible subcutaneous ICD. * Sparkle Barkley [...] Note: Added automatically from request for surgery [id number] ??? Borderline personality disorder ??? Post-traumatic stress [...] to [facility]. ?? She was [place] [facility] [place] she sometime on FridayNovember 05 went [...] November 07, 2021. Ms. Lundy lives in [place], [place]. She has 3 children (5- Cindi; [...] arrest EKG - 11/10/21 SR at 80bpm, MA 130ms, QRS 86ms, QT 418ms, QTc 482ms [...] reported cocaine and heroinuse. She passed the [employer] S-ICD screening today. We had an extensive [...] contact EP with any further questions (pager [phone]). EDEN Sanchez 11/11/2021 Pager: [phone] * Shana Zurita MD - 11/11/2021 5:40 AM EST Images from the original note were not included. Cardiology Progress Note?? Patient info: Name: Aniya Lundy : 1985 PCP: Kenia Lawrence APRN PCP phone number: [phone] Date of Admission: 11/04/2021 ( Hospital Day [...] 1759 PHART 7.34* 7.23* 7.25* 7.24* 7.23* CXE1NBE 37 46* 40 42 43 PO2ART 88 90 117* 80* 71* JYD2AHT 19.2* 18.6* 17.0* 17.6* 17.6* LACTATEVEN 0.6 0.4* 0.5 0.9 1.7 OXF8YJB 40 50 70 80 70 PFRATIOART2 220 180 167 100 101 VBG (Venous Blood Gas) Recent Labs 11/07/21 0940 11/07/21 0630 11/07/21 0207 11/06/21204311/06/21 1759 LACTATEVEN 0.6 0.4* 0.5 0.9 1.7 Mixed Venous Sat No results for input(s): J1TMRJ6 in the last 168 hours. Microbiology: Microbiology Results (Last 30 days) Procedure Component Value Units Date/Time MRSA PCR [[id number]] Collected: 11/08/21 1010 Lab Status: Final result [...] of this test was determined by the [facility]. It has been cleared by the U.S. Food and Drug Administration for clinical use. Comment: [VERIFIED DATE]11.09.21 Verified By:Dudley Cook (Electronic Signature) Blood culture [[id number]] Collected: 11/06/211999 Lab Status: Preliminary result Specimen: Blood from Hand, Left Updated: 11/10/21 2301 Blood Culture No growth at 4 days. Blood culture [[id number]] Collected: 11/06/21 1847 Lab Status: Preliminary result Specimen: Blood Updated: 11/10/21 2301 Blood Culture No growth at 4 days. Lower Respiratory Culture Tracheal Aspirate [[id number]] Collected: 11/06/21 1220 Lab Status: Final result Specimen: Tracheal Aspirate Updated: 11/09/21 1041 Lower Respiratory Culture Many mixed bacterial morphotypes suggestive of normal upper respiratory al Gram Stain -- Many Neutrophils seen Few squamous epithelial cells seen Many mixed bacterial morphotypes suggestive of normal upper respiratory al Blood culture [[id number]] Collected: 11/04/21 2250 Lab Status: Final result Specimen: Blood from Hand, Right Updated: 11/10/21 0701 Blood Culture No growth at 5 days. Blood culture [[id number]] Collected: 11/04/21 2215 Lab Status: Final result Specimen: Blood from Antecubital, Right Updated: 11/10/21 0701 Blood Culture No growth at 5 days. COVID-19 PCR [[id number]] Collected: 11/04/21 0735 Lab Status: Final result [...] using the Simplexa COVID-19 Direct Assay by [employer] as authorized by the FDA issued Emergency [...] Department of Pathology and Laboratory Medicine at [facility], certified under the Clinical Laboratory Improvement Amendments [...] fact sheets at the following FDA website: https://www.fda.gov/medical-devices/zhyyltrxmsn-pumzzdk-1247-bnexo-01-btuzqqjzj- tcl-zypxjkudqapoct-gbhwbmn-devices/uhorw-ojaifhsoikx-ithc SARS-CoV-2 Source RESILIENT TILE INSTALLER Swab Imaging: Results for orders placed or [...] requested your imaging first. Electronically signed by: JIM CARL MD, [facility] ([phone]), at 11/04/2021 10:18 AM XR Abdomen 1 view (Generic) (Exam End: 11/04/2021 [...] requested your imaging first. Electronically signed by: JIM CARL MD, [facility] ([phone]), at 11/04/2021 10:[address] Head wo Contrast (Generic) (Exam End: 11/04/2021 [...] requested your imaging first. Electronically signed by: Alejo Garcia MD, [facility] ([phone]), at 11/04/2021 9:[address] Angiogram Chest for Pulmonary Embolus w [...] requested your imaging first. Electronically signed by: JIM CARL MD, [facility] ([phone]), at 11/04/2021 9:52 AM XR Chest One View (Exam End: 11/04/2021 8:22 [...] first. Electronically signed by: Jennifer Bassett MD, [facility] ([phone]), at 11/04/2021 8:53 PM XR Chest One View (Exam End: 11/05/2021 8:40 [...] requested your imaging first. Electronically signed by: Danielle Rausch MD, [facility] ([phone]), at 11/05/2021 9:48 AM XR Chest One View (Exam End: 11/06/2021 6:36 [...] first. Electronically signed by: Kimberley Pichardo MD, [facility] ([phone]), at 11/06/2021 6:47 AM XR Chest One [...] requested your imaging first. Electronically signed by: Danielle Rausch MD, [facility] ([phone]), at 11/07/2021 9:56 AM XR Chest One View (Exam End: 11/07/2021 9:16 [...] first. Electronically signed by: Dinh Becerril MD, [facility] ([phone]), at 11/07/2021 9:33 AM XR Abdomen 1 view (Generic) (Exam End: 11/07/2021 [...] imaging first. Electronically signed by: Chandrakant Pena MD, [facility] ([phone]), at 11/07/2021 11:43 AM Medications Scheduled Meds: ??? lisinopriL 20 mg Oral Daily ??? prazosin 2 mg Oral Nightly ??? clonazePAM 1 mg Oral BID ??? guaiFENesin ER 600 mg Oral 2 times per day ??? ceFEPime (Maxipime) 2g vial attach to sodium chloride 0.9% 100 mL Mini-Bag Plus 2 g RacejrooeqsT2F ??? amLODIPine 10 mg Oral Daily ??? [...] up in chair for most of shift. insulation worker furnace installer met with pt at bedside, pt was having muscular like pain in her chest, pt was given tylenol and Ibuprofen when appropriate, pain was manageableper patient * Rani Ayers MSW - 11/10/2021 2:02 PM EST Office Of Care Management Weekend Potato Chip Frier Social Work HAROON Christie SW met with patient, Aniya, to assess coping and psychosocial needs. Aniya had difficulties actively participating in the conversation due to her level of pain. She was able to share that she lives in a subsidized apartment in [place], [place]. She receives social security disability income, and has for many years. She has a valid drivers license and a car. She shares that she struggles financially, After paying her subsidized rent, car insurance, and car payment, she only has $30 left at the end of the month. She does receive [address] [place] [address] food stamp benefits and has no concerns for food insecurity. She states that her zaye Bruce is her strongest support and she [...] be reassessed again prior to discharge. Pager: [phone] * Prashant Johnson - 11/10/2021 6:02 AM EST Images from the original note were not included. Cardiology ICU Progress Note?? Patient info: Name: Aniya Lundy : 1985 PCP: Kenia Lawrence APRN PCP phone number: [phone] Date of Admission: 11/04/2021 ( Hospital Day [...] not displayed. LFTs Recent Labs 11/06/21 0425 11/04/21 0735 [...] 1759 PHART 7.34* 7.23* 7.25* 7.24* 7.23* ETP9ATU 37 46* 40 42 43 PO2ART 88 90 117* 80* 71* TVF6ZNR 19.2* 18.6* 17.0* 17.6* 17.6* LACTATEVEN 0.6 0.4* 0.5 0.9 1.7 PFB4MGD 40 50 70 80 70 PFRATIOART2 220 180 167 100 101 VBG (Venous Blood Gas) Recent Labs 11/07/21 0940 11/07/21 0630 11/07/21 0207 11/06/21 2044 11/06/21 1759 11/04/21 0843 11/04/21 0733 PHVEN -- -- -- -- -- -- 7.09* GTI1ZID -- -- -- -- -- -- 66* PO2VEN -- -- -- -- -- -- 31 DLG2CRU -- -- -- -- -- -- 19.7 LACTATEVEN 0.6 0.4* 0.5 0.9 1.7 < > 6.5* < > = values in this interval not displayed. Mixed Venous Sat No results for input(s): T2ACNF6 in the last 168 hours. Microbiology: Microbiology Results (Last 30 days) Procedure Component Value Units Date/Time MRSA PCR [[id number]] Collected: 11/08/21 1010 Lab Status: Final result [...] of this test was determined by the [facility]. It has been cleared by the U.S. Food and Drug Administration for clinical use. Comment: [VERIFIED DATE]11.09.21 Verified By:Dudley Cook (Electronic Signature) Blood culture [[id number]] Collected: 11/06/211999 Lab Status: Preliminary result Specimen: Blood from Hand, Left Updated: 11/09/212300 Blood Culture No growth at 3 days. Blood culture [[id number]] Collected: 11/06/21 1847 Lab Status: Preliminary result Specimen: Blood Updated: 11/09/212300 Blood Culture No growth at 3 days. Lower Respiratory Culture Tracheal Aspirate [[id number]] Collected: 11/06/21 1220 Lab Status: Final result Specimen: Tracheal Aspirate Updated: 11/09/21 1041 Lower Respiratory Culture Many mixed bacterial morphotypes suggestive of normal upper respiratory al Gram Stain -- Many Neutrophils seen Few squamous epithelial cells seen Many mixed bacterial morphotypes suggestive of normal upper respiratory al Blood culture [[id number]] Collected: 11/04/21 2250 Lab Status: Final result Specimen: Blood from Hand, Right Updated: 11/10/21 0701 Blood Culture No growth at 5 days. Blood culture [[id number]] Collected: 11/04/21 2215 Lab Status: Final result Specimen: Blood from Antecubital, Right Updated: 11/10/21 0701 Blood Culture No growth at 5 days. COVID-19 PCR [[id number]] Collected: 11/04/21 0735 Lab Status: Final result [...] using the Simplexa COVID-19 Direct Assay by [employer] as authorized by the FDA issued Emergency [...] Department of Pathology and Laboratory Medicine at [facility], certified under the Clinical Laboratory Improvement Amendments [...] fact sheets at the following FDA website: https://www.fda.gov/medical-devices/iguzjkmtlqf-czepccg-9390-qkpyq-29-ddngnjame- sgj-byjbmmiunpkwqn-rqhulnn-devices/jzuxu-wefffcxricc-ptsd SARS-CoV-2 Source RESILIENT TILE INSTALLER Swab Imaging: Results for orders placed or [...] requested your imaging first. Electronically signed by: JIM CARL MD, [facility] ([phone]), at 11/04/2021 10:18 AM XR Abdomen 1 view (Generic) (Exam End: 11/04/2021 [...] requested your imaging first. Electronically signed by: JIM CARL MD, [facility] ([phone]), at 11/04/2021 10:[address] Head wo Contrast (Generic) (Exam End: 11/04/2021 [...] requested your imaging first. Electronically signed by: Alejo Garcia MD, [facility] ([phone]), at 11/04/2021 9:[address] Angiogram Chest for Pulmonary Embolus w [...] requested your imaging first. Electronically signed by: JIM CARL MD, [facility] ([phone]), at 11/04/2021 9:52 AM XR Chest One View (Exam End: 11/04/2021 8:22 [...] first. Electronically signed by: Jennifer Bassett MD, [facility] ([phone]), at 11/04/2021 8:53 PM XR Chest One View (Exam End: 11/05/2021 8:40 [...] requested your imaging first. Electronically signed by: Danielle Rausch MD, [facility] ([phone]), at 11/05/2021 9:48 AM XR Chest One View (Exam End: 11/06/2021 6:36 [...] first. Electronically signed by: Kimberley Pichardo MD, [facility] ([phone]), at 11/06/2021 6:47 AM XR Chest One [...] requested your imaging first. Electronically signed by: Danielle Rausch MD, [facility] ([phone]), at 11/07/2021 9:56 AM XR Chest One View (Exam End: 11/07/2021 9:16 [...] first. Electronically signed by: Dinh Becerril MD, [facility] ([phone]), at 11/07/2021 9:33 AM XR Abdomen 1 view (Generic) (Exam End: 11/07/2021 [...] imaging first. Electronically signed by: Chandrakant Pena MD, [facility] ([phone]), at 11/07/2021 11:43 AM Medications Scheduled Meds: ??? lisinopriL 20 mg Oral Daily ??? prazosin 2 mg Oral Nightly ??? clonazePAM 1 mg Oral BID ??? guaiFENesin ER 600 mg Oral 2 times per day ??? ceFEPime (Maxipime) 2g vial attach to sodium chloride 0.9% 100 mL Mini-Bag Plus 2 g DobmiuttckkI2G ??? amLODIPine 10 mg Oral Daily ??? [...] VSS. Sitter at bedside * Alissa Torres SURVEY CHIEF - 11/09/2021 3:24 PM EST Office of Care Management Social Work Note Patient: Aniya Lundy Relevant Information: Attempted to see patient to connect with community resources. However, patient was in process of transferring to another floor. Gave resources to CONSTRUCTION SUPERINTENDENT, who said he would share them with the patient. Plan: Will add patient to weekend list for monitoring with social dynamics. SURVEY CHIEF will continue to follow as needs are identified. HAROON Nicholson Critical Care SURVEY CHIEF Office of Care Management Pager: [phone] * Priscila Garcia, PT - 11/09/2021 3:20 [...] ENDOSCOPY performed by Dudley Alva MD at [facility] ENDOSCOPY Active Non-Hospital Problems Diagnosis ??? Gastroesophageal reflux disease ??? Chest pain ??? Skin disease ??? Anxiety ??? Tachycardia Social History: lives in [place], [place] and her boyfriend, Dk, occasionally stays with her; works at [employer] in [place], [place]; per chart, she has 3 children, [...] ?? Engage in ADL's as able [facility]ive: ???[facility].?? I don't know why I'm here. [...] 3-, wrist flexion and extension 3, hand recoil spring winder 3, hip flexion 2-, hip extension 2+, [...] today as [facility] Balance: Sitting Static: poor; required moderate [...] Physical Therapy: 50 PRISCILA GARCIA, PT Pager: [phone] Physical Therapy Inpatient Rehabilitation Department * Nidia Schultz, OT - 11/09/2021 2:55 PM EST OT contact note 11/09/21 1247 OT Time and Intention Document Type contact Total Minutes, Occupational Therapy 0 Comment, Session Not Performed OT consult received. EDH reviewed. Pt was not available (transferring rooms then getting settled). OT will follow up on Friday. Thank you for this consult. Nidia Schultz OTR/L Pager: [phone] * Shana Zurita MD - 11/09/2021 5:26 AM EST Images from the original note were not included. Cardiology ICU Progress Note?? Patient info: Name: Aniya Lundy : 1985 PCP: Kenia Lawrence APRN PCP phone number: [phone] Date of Admission: 11/04/2021 ( Hospital Day 5 days ) Attending:Neeraj Pompa MD ID: Anyia Lundy is a 36 y.o. female with [...] Gas) Recent Labs 11/07/21 0940 11/07/21 0630 11/07/2120611/06/21204311/06/211758 PHART 7.34* 7.23* 7.25* 7.24* 7.23* VKP3NYH 37 46* 40 42 43 PO2ART 88 90 117* 80* 71* ZPP9TTY 19.2* 18.6* 17.0* 17.6* 17.6* LACTATEVEN 0.6 0.4* 0.5 0.9 1.7 MBI0CCV 40 50 70 80 70 PFRATIOART2 220 180 167 100 101 VBG (Venous Blood Gas) Recent Labs 11/07/21 0940 11/07/21 0630 11/07/2120611/06/21204311/06/21 1759 11/04/21 0843 11/04/21 0733 PHVEN -- -- -- -- -- -- 7.09* YUO1ZEV -- -- -- -- -- -- 66* PO2VEN -- -- -- -- -- -- 31 KYM7REP -- -- -- -- -- -- 19.7 LACTATEVEN 0.6 0.4* 0.5 0.9 1.7 < > 6.5* < > = values in this interval not displayed. Mixed Venous Sat No results for input(s): P1YLRB0 in the last 168 hours. Objective: Vitals Last value Range last 24 hrs Temperature Temp: 37.4 ??C (99.3 ??F) Temp: [37.1 ??C (98.8 ??F)-37.4 ??C (99.3 ??F)] Heart Rate Heart Rate: 97 Heart Rate: [96-107] Blood Pressure BP: 144/84 BP: (133-156)/(64-100) Art Line BP BP (Arterial Line): 75/64 BP (Arterial Line): -- MAP (NBP): [83 mmHg-116 mmHg] Respiratory Rate Resp: 19 Resp: [12-22] SpO2 SpO2: 98 % SpO2: [94 %-99 [...] BILIDIR 0.2 -- Coags Recent Labs 11/06/21 04211/04/21 0735 INR 1.1 -- PT 12.4 -- [...] 1759 PHART 7.34* 7.23* 7.25* 7.24* 7.23* NVG8PUR 37 46* 40 42 43 PO2ART 88 90 117* 80* 71* BTG0JUP 19.2* 18.6* 17.0* 17.6* 17.6* LACTATEVEN 0.6 0.4* 0.5 0.9 1.7 HYU3OCQ 40 50 70 80 70 PFRATIOART2 220 180 167 100 101 VBG (Venous Blood Gas) Recent Labs 11/07/21 0940 11/07/21 0630 11/07/21 0207 11/06/214 11/06/21 1759 11/04/21 0843 11/04/21 0733 PHVEN -- -- -- -- -- -- 7.09* QVN3PMJ -- -- -- -- -- -- 66* PO2VEN -- -- -- -- -- -- 31 MKF2AXU -- -- -- -- -- -- 19.7 LACTATEVEN 0.6 0.4* 0.5 0.9 1.7 < > 6.5* < > = values in this interval not displayed. Mixed Venous Sat No results for input(s): J0LDLQ8 in the last 168 hours. Microbiology: Microbiology Results (Last 30 days) Procedure Component Value Units Date/Time MRSA PCR [[id number]] Collected: 11/08/21 1010 Lab Status: Final result [...] of this test was determined by the [facility]. It has been cleared by the U.S. Food and Drug Administration for clinical use. Comment: [VERIFIED DATE]11.09.21 Verified By:Dudley Cook (Electronic Signature) Blood culture [[id number]] Collected: 11/06/211999 Lab Status: Preliminary result Specimen: Blood from Hand, Left Updated: 11/08/21 2301 Blood Culture No growth at 2 days. Blood culture [[id number]] Collected: 11/06/21 1847 Lab Status: Preliminary result Specimen: Blood Updated: 11/08/21 2301 Blood Culture No growth at 2 days. Lower Respiratory Culture Tracheal Aspirate [[id number]] Collected: 11/06/21 1220 Lab Status: Preliminary result Specimen: Tracheal Aspirate Updated: 11/07/21 1420 Lower Respiratory Culture Many mixed bacterial morphotypes suggestive of normal upper respiratory al Gram Stain -- Many Neutrophils seen Few squamous epithelial cells seen Many mixed bacterial morphotypes suggestive of normal upper respiratory al Blood culture [[id number]] Collected: 11/04/21 2250 Lab Status: Preliminary result Specimen: Blood from Hand, Right Updated: 11/08/21 2301 Blood Culture No growth at 4 days. Blood culture [[id number]] Collected: 11/04/21 2215 Lab Status: Preliminary result Specimen: Blood from Antecubital, Right Updated: 11/08/21 2301 Blood Culture No growth at 4 days. COVID-19 PCR [[id number]] Collected: 11/04/21 0735 Lab Status: Final result [...] using the Simplexa COVID-19 Direct Assay by [employer] as authorized by the FDA issued Emergency [...] Department of Pathology and Laboratory Medicine at [facility], certified under the Clinical Laboratory Improvement Amendments [...] fact sheets at the following FDA website: https://www.fda.gov/medical-devices/srmvrvszypt-mkbqztu-9476-yxnnu-16-znwauhxle- ofa-wzrawaibzdxcgy-fpzjbcf-devices/yzlyr-tujpynzspct-jcbl SARS-CoV-2 Source RESILIENT TILE INSTALLER Swab Imaging: Results for orders placed or [...] requested your imaging first. Electronically signed by: JIM CARL MD, [facility] ([phone]), at 11/04/2021 10:18 AM XR Abdomen 1 view (Generic) (Exam End: 11/04/2021 [...] requested your imaging first. Electronically signed by: JIM CARL MD, [facility] ([phone]), at 11/04/2021 10:[address] Head wo Contrast (Generic) (Exam End: 11/04/2021 [...] requested your imaging first. Electronically signed by: Alejo Garcia MD, [facility] ([phone]), at 11/04/2021 9:[address] Angiogram Chest for Pulmonary Embolus w [...] requested your imaging first. Electronically signed by: JIM CARL MD, [facility] ([phone]), at 11/04/2021 9:52 AM XR Chest One View (Exam End: 11/04/2021 8:22 [...] first. Electronically signed by: Jennifer Bassett MD, [facility] ([phone]), at 11/04/2021 8:53 PM XR Chest One View (Exam End: 11/05/2021 8:40 [...] requested your imaging first. Electronically signed by: Danielle Rausch MD, [facility] ([phone]), at 11/05/2021 9:48 AM XR Chest One View (Exam End: 11/06/2021 6:36 [...] first. Electronically signed by: Kimberley Pichardo MD, [facility] ([phone]), at 11/06/2021 6:47 AM XR Chest One [...] requested your imaging first. Electronically signed by: Danielle Rausch MD, [facility] ([phone]), at 11/07/2021 9:56 AM XR Chest One View (Exam End: 11/07/2021 9:16 [...] first. Electronically signed by: Dinh Becerril MD, [facility] ([phone]), at 11/07/2021 9:33 AM XR Abdomen 1 view (Generic) (Exam End: 11/07/2021 [...] imaging first. Electronically signed by: Chandrakant Pena MD, [facility] ([phone]), at 11/07/2021 11:43 AM Medications Scheduled Meds: ??? clonazePAM 1 mg Oral Nightly ??? lisinopriL 10 mg Oral Daily ??? prazosin 2 mg Oral Nightly ??? ceFEPime (Maxipime) 2g vial attach to sodium chloride 0.9% 100 mL Mini-Bag Plus 2 g LssvdvlkdygQ4B ??? amLODIPine 10 mg Oral Daily ??? [...] vasospasm, BUE weakness and lower extremities paresthesias. UTILITY MECHANIC SUPERVISOR evaluated this AM; cleared for puree diet. [...] for aspiration pna vs pneumonitis - off 02 - Continue cefepime 1g QD - d/c metronidazole. - d/c Vanc ?? GI: - Continue TF with NG - UTILITY MECHANIC SUPERVISOR evaluation pending; then will resume PO - [...] refused MRI due to being to anxious. Md notified and ativan ordered, pt still refused. Pt became very anxious overnight an additional 0.5mg of klonopin was ordered and given. 0400 pt became increasing anxious and tearful, 0500 pt stated she cannot live like this anymore & wants her sister to take custody of her kids. Md notified, sitter ordered, psych consult in, and social service worker being contacted. PLAN MOVING FORWARD: MRI of [...] Yes [facility] GOAL OUTCOME EVALUATION: * Dianna Tomlinson, YG - 11/08/2021 11:51 AM EST Speech Therapy [...] Thin liquid via spoon, via straw ?? [place] thickened liquid via spoon, via straw [...] oral care Pt will benefit from continued UTILITY MECHANIC SUPERVISOR services while hospitalized Speech Therapy Goals: (To be met by discharge) Pt will tolerate least restrictive diet without evidence of dysphagia / aspiration. Pt / caregiver will be independent with aspiration precautions, diet modifications, and safe swallowing strategies. Pt. will take part in full cognitive / language evaluation. Plan: Therapy Frequency (UTILITY MECHANIC SUPERVISOR Eval): 2-4 times/wk Pt./family are in agreement with treatment plan. Total Minutes (Speech Language Pathology): 18 Thank you for this consult with this patient. Please feel free to page me with any questions or concerns. Dianna Tomlinson MA, [facility]-UTILITY MECHANIC SUPERVISOR Pager: [phone] Speech-Language Pathology Inpatient Rehabilitation Medicine * Jewels [...] Reason for intervention: ICU Tube-feeding Nutrition Recommendations: UTILITY MECHANIC SUPERVISOR cx pending Pt is NPO X 5 [...] discuss plan with provider Agnes Zurita MD #[id number] via secure chat. All Active TF Orders: [...] medications: prn Miralax, Dulcolax Last Bowel Movement: (FURNITURE REMOVALIST'S ASSISTANT) I/O from last 2 shifts: Intake/Output Summary [...] encounter: 81 kg (178 lb 9.2 oz). [place] Body Weight: 54.5-60 kg Usual Body Weight: [...] Nutrition intake and intake history/Interview: 11/08/21: NA; sloop captain npo X 5to day with initiation of TFs. UTILITY MECHANIC SUPERVISOR cx pending Estimated needs: Calories: 5455-6414 (20-25 kcal/kg UBW) Protein: 90-120 grams (1.5- 2.0 kg IBW) Tolerance or barriers to meeting needs: no BM since admit Nutrition Focused Physical Exam (NFPE): Not performed Protein-calorie Malnutrition: Not enough data to assess (Cami JPZACK J Parenteral Enteral Nutr. 2012 February; 36(3): 273-83) Nutrition to continue to follow up while inpatient [address] Pager #:[phone] * Valorie Obrien MD - 11/08/2021 5:20 AM EST Images from the original note were not included. Cardiology ICU Progress Note? I have seen and examined this patient and discussed with the internet cafe manager, resident, fellow. ??I agree with the plan [...] ~ 480 or less. ??She presented to [facility] in Sep 2021 with chest pain but r/o for MA. ??She had COVID in 2020 (she was not vaccinated). ??See note below with history provided by Ms. Lundy's mother. ?? Initial venous pH 7.09 lactate 65. ??CK 135, d-dimer 5000 (r/o for PE), Serum creatinine 1.55 (baseline ~ 1.0), hemoglobin 12.4, platelets 298, WBC 25, AST 72 ??ALT 79. ??Troponin 0.02. ?? Shortly after 3 pm??FridayNov 05, Dr. Marek Alves, library assistant was bedside when she again went [...] about ICD. ? Valorie Obrien MD, Naye, [facility] Cardiology Attending? Patient info: Name: Aniya Lundy : 1985 PCP: Kenia Lawrence APRN PCP phone number: [phone] Date of Admission: 11/04/2021 ( Hospital Day [...] 2200) ??? niCARdipine 5 mg/hr (11/08/21 0600) Ventilator [...] 1759 PHART 7.34* 7.23* 7.25* 7.24* 7.23* YOW0LBA 37 46* 40 42 43 PO2ART 88 90 117* 80* 71* KGZ8CXA 19.2* 18.6* 17.0* 17.6* 17.6* LACTATEVEN 0.6 0.4* 0.5 0.9 1.7 SRJ1LRS 40 50 70 80 70 PFRATIOART2 220 180 167 100 101 VBG (Venous Blood Gas) Recent Labs 11/07/21 0940 11/07/21 0630 11/07/2120611/06/21204311/06/21 1759 11/04/21 0843 11/04/21 0733 PHVEN -- -- -- -- -- -- 7.09* HPQ2TWP -- -- -- -- -- -- 66* PO2VEN -- -- -- -- -- -- 31 UGL6UUF -- -- -- -- -- -- 19.7 LACTATEVEN 0.6 0.4* 0.5 0.9 1.7 < > 6.5* < > = values in this interval not displayed. Mixed Venous Sat No results for input(s): W2WWFD7 in the last 168 hours. Objective: Vitals [...] Lines/Drains/Airways - ETT - central line - [place] - LDA Cath/EP sheath - Intra-aortic balloon [...] 11/05/21 1406 11/05/21 0108 11/04/21 0735 NA 141 -- 139 -- [...] 1759 PHART 7.34* 7.23* 7.25* 7.24* 7.23* GWQ9XMB 37 46* 40 42 43 PO2ART 88 90 117* 80* 71* KDL1MJZ 19.2* 18.6* 17.0* 17.6* 17.6* LACTATEVEN 0.6 0.4* 0.5 0.9 1.7 CBX4LPY 40 50 70 80 70 PFRATIOART2 220 180 167 100 101 VBG (Venous Blood Gas) Recent Labs 11/07/21 0940 11/07/21 0630 11/07/21 0207 11/06/21 2044 11/06/21 1759 11/04/21 0843 11/04/21 0733 PHVEN -- -- -- -- -- -- 7.09* RVI8YSW -- -- -- -- -- -- 66* PO2VEN -- -- -- -- -- -- 31 HXO9RGM -- -- -- -- -- -- 19.7 LACTATEVEN 0.6 0.4* 0.5 0.9 1.7 < > 6.5* < > = values in this interval not displayed. Mixed Venous Sat No results for input(s): E8HRZU4 in the last 168 hours. Microbiology: Microbiology Results (Last 30 days) Procedure Component Value Units Date/Time Blood culture [[id number]] Collected: 11/06/211999 Lab Status: Preliminary result Specimen: Blood from Hand, Left Updated: 11/07/212300 Blood Culture No growth at 1 day. Blood culture [[id number]] Collected: 11/06/21 184 Lab Status: Preliminary result Specimen: Blood Updated: 11/07/212300 Blood Culture No growth at 1 day. Lower Respiratory Culture Tracheal Aspirate [[id number]] Collected: 11/06/21 1220 Lab Status: Preliminary result Specimen: Tracheal Aspirate Updated: 11/07/21 1420 Lower Respiratory Culture Many mixed bacterial morphotypes suggestive of normal upper respiratory al Gram Stain -- Many Neutrophils seen Few squamous epithelial cells seen Many mixed bacterial morphotypes suggestive of normal upper respiratory al Blood culture [[id number]] Collected: 11/04/21 2250 Lab Status: Preliminary result Specimen: Blood from Hand, Right Updated: 11/07/21 230 Blood Culture No growth at 3 days. Blood culture [[id number]] Collected: 11/04/21 2215 Lab Status: Preliminary result Specimen: Blood from Antecubital, Right Updated: 11/07/21 230 Blood Culture No growth at 3 days. COVID-19 PCR [[id number]] Collected: 11/04/21 0735 Lab Status: Final result [...] using the Simplexa COVID-19 Direct Assay by [employer] as authorized by the FDA issued Emergency [...] Department of Pathology and Laboratory Medicine at [facility], certified under the Clinical Laboratory Improvement Amendments [...] fact sheets at the following FDA website: https://www.fda.gov/medical-devices/chqwohifnam-bmzktyw-7983-sehas-24-izsbqgixt- dcp-ixfxykenyhiygr-kikwwbb-devices/yipbw-pxlqvipparj-zrwt SARS-CoV-2 Source RESILIENT TILE INSTALLER Swab Imaging: Results for orders placed or [...] requested your imaging first. Electronically signed by: JIM CARL MD, [facility] ([phone]), at 11/04/2021 10:18 AM XR Abdomen 1 view (Generic) (Exam End: 11/04/2021 [...] requested your imaging first. Electronically signed by: JIM CARL MD, [facility] ([phone]), at 11/04/2021 10:[address] Head wo Contrast (Generic) (Exam End: 11/04/2021 [...] requested your imaging first. Electronically signed by: Alejo Garcia MD, [facility] ([phone]), at 11/04/2021 9:[address] Angiogram Chest for Pulmonary Embolus w [...] requested your imaging first. Electronically signed by: JIM CARL MD, [facility] ([phone]), at 11/04/2021 9:52 AM XR Chest One View (Exam End: 11/04/2021 8:22 [...] first. Electronically signed by: Jennifer Bassett MD, [facility] ([phone]), at 11/04/2021 8:53 PM XR Chest One View (Exam End: 11/05/2021 8:40 [...] requested your imaging first. Electronically signed by: Danielle Rausch MD, [facility] ([phone]), at 11/05/2021 9:48 AM XR Chest One View (Exam End: 11/06/2021 6:36 [...] first. Electronically signed by: Kimberley Pichardo MD, [facility] ([phone]), at 11/06/2021 6:47 AM XR Chest One [...] requested your imaging first. Electronically signed by: Danielle Rausch MD, [facility] ([phone]), at 11/07/2021 9:56 AM XR Chest One View (Exam End: 11/07/2021 9:16 [...] first. Electronically signed by: Dinh Becerril MD, [facility] ([phone]), at 11/07/2021 9:33 AM XR Abdomen 1 view (Generic) (Exam End: 11/07/2021 [...] imaging first. Electronically signed by: Chandrakant Pena MD, [facility] ([phone]), at 11/07/2021 11:43 AM Medications Scheduled Meds: ??? ceFEPime (Maxipime) 2g vial attach to sodium chloride 0.9% 100 mL Mini-Bag Plus 2 g WudalxhhmevO7Q ??? amLODIPine 5 mg Oral Daily ??? [...] dose oral CCB and wean off nicardipine. UTILITY MECHANIC SUPERVISOR will evaluate today and hopefully resume diet [...] GI: - Continue TF with NG - UTILITY MECHANIC SUPERVISOR evaluation pending; then will resume PO - [...] Cardiology, M1-S1, #3011 11/08/21 9:41 AM * Faviola Trivedi RN - 11/08/2021 3:56 AM ESTSummary: 11/07 Patient transferred laterally from [facility], neuro checks, slow speech moves all extremities against gravity, on going EEG, 11/07 had vaso spasms, started on Nicardipine at 4mg/h, extubated 11/07, 5L NC, bridled ev reyes, menstration 11/07 . Skin intact * Tameka [...] disease Added automatically from request for surgery [id number] ??? Chest pain ETT 2013- negative ST [...] this patient and discussed with the internet cafe manager, resident, fellow. ??I agree with the plan [...] 2021 with chest pain but r/o for MA. ??She had COVID in 2020 (she was not vaccinated). ??See note below with history provided by Ms. Lundy's mother. ?? Initial venous pH 7.09 lactate 65. ??CK 135, d-dimer 5000 (r/o for PE), Serum creatinine 1.55 (baseline ~ 1.0), hemoglobin 12.4, platelets 298, WBC 25, AST 72 ??ALT 79. ??Troponin 0.02. ?? Shortly after 3 pm??FridayNov 05, Dr. Marek Alves, library assistant was bedside when she again went [...] about ICD. ? Valorie Obrien MD, Naye, [facility] Cardiology Attending? Patient info: Name: Aniya Lundy : 1985 PCP: Kenia Lawrence APRN PCP phone number: [phone] Date of Admission: 11/04/2021 ( Hospital Day [...] ABG (Arterial Blood Gas) Recent Labs 11/07/21 0207 11/06/21 2044 11/06/21 1759 11/06/21 1433 11/06/21 0746 PHART 7.25* 7.24* 7.23* 7.33* 7.29* XNB3FPO 40 42 43 34* 40 PO2ART 117* 80* 71* 67* 62* RWF3PTJ 17.0* 17.6* 17.6* 17.5* 18.9* LACTATEVEN 0.5 0.9 1.7 0.8 0.9 PNE3RFZ 70 80 70 50 40 PFRATIOART2 167 100 101 134 155 VBG (Venous Blood Gas) Recent Labs 11/07/21 0207 11/06/21 2044 11/06/21 1759 11/06/21 1433 11/06/21 0746 11/04/21 0843 11/04/21 0733 PHVEN -- -- -- -- -- -- 7.09* DQW1HAJ -- -- -- -- -- -- 66* PO2VEN -- -- -- -- -- -- 31 PFN5ECP -- -- -- -- -- -- 19.7 LACTATEVEN 0.5 0.9 1.7 0.8 0.9 < > 6.5* < > = values in this interval not displayed. Mixed Venous Sat No results for input(s): G5WONJ3 in the last 168 hours. Objective: Vitals [...] Lines/Drains/Airways - ETT - central line - [place] - LDA Cath/EP sheath - Intra-aortic balloon [...] ABG (Arterial Blood Gas) Recent Labs 11/07/21 0207 11/06/21 2044 11/06/21 1759 11/06/21 1433 11/06/21 0746 PHART 7.25* 7.24* 7.23* 7.33* 7.29* QDT2PIB 40 42 43 34* 40 PO2ART 117* 80* 71* 67* 62* JVH8KFR 17.0* 17.6* 17.6* 17.5* 18.9* LACTATEVEN 0.5 0.9 1.7 0.8 0.9 DHX4DEY 70 80 70 50 40 PFRATIOART2 167 100 101 134 155 VBG (Venous Blood Gas) Recent Labs 11/07/21 0207 11/06/21 2044 11/06/21 17511/06/21 1433 11/06/21 0746 11/04/21 0843 11/04/21 0733 PHVEN -- -- -- -- -- -- 7.09* OPE6LXP -- -- -- -- -- -- 66* PO2VEN -- -- -- -- -- -- 31 SKS8BZT -- -- -- -- -- -- 19.7 LACTATEVEN 0.5 0.9 1.7 0.8 0.9 < > 6.5* < > = values in this interval not displayed. Mixed Venous Sat No results for input(s): S7PBAF5 in the last 168 hours. Microbiology: Microbiology Results (Last 30 days) Procedure Component Value Units Date/Time Lower Respiratory Culture Tracheal Aspirate [[id number]] Collected: 11/06/21 1220 Lab Status: Preliminary result Specimen: Tracheal Aspirate Updated: 11/06/21 143 Gram Stain -- Many Neutrophils seen Few squamous epithelial cells seen Many mixed bacterial morphotypes suggestive of normal upper respiratory al Blood culture [[id number]] Collected: 11/04/21 2250 Lab Status: Preliminary result Specimen: Blood from Hand, Right Updated: 11/06/21 2301 Blood Culture No growth at 2 days. Blood culture [[id number]] Collected: 11/04/21 2215 Lab Status: Preliminary result Specimen: Blood from Antecubital, Right Updated: 11/06/21 2301 Blood Culture No growth at 2 days. COVID-19 PCR [[id number]] Collected: 11/04/21 0735 Lab Status: Final result [...] using the Simplexa COVID-19 Direct Assay by [employer] as authorized by the FDA issued Emergency [...] Department of Pathology and Laboratory Medicine at [facility], certified under the Clinical Laboratory Improvement Amendments [...] fact sheets at the following FDA website: https://www.fda.gov/medical-devices/yglydrjsdtx-orwrwua-4834-sbsvw-02-eohtwokjl- tpr-uuxqhfkcnnydmj-rordhbz-devices/epkmt-bbfelehmbpx-dfcn SARS-CoV-2 Source RESILIENT TILE INSTALLER Swab Imaging: Results for orders placed or [...] requested your imaging first. Electronically signed by: JIM CARL MD, [facility] ([phone]), at 11/04/2021 10:18 AM XR Abdomen 1 view (Generic) (Exam End: 11/04/2021 [...] requested your imaging first. Electronically signed by: JIM CARL MD, [facility] ([phone]), at 11/04/2021 10:[address] Head wo Contrast (Generic) (Exam End: 11/04/2021 [...] requested your imaging first. Electronically signed by: Alejo Garcia MD, [facility] ([phone]), at 11/04/2021 9:[address] Angiogram Chest for Pulmonary Embolus w [...] requested your imaging first. Electronically signed by: JIM CARL MD, [facility] ([phone]), at 11/04/2021 9:52 AM XR Chest One View (Exam End: 11/04/2021 8:22 [...] first. Electronically signed by: Jennifer Bassett MD, [facility] ([phone]), at 11/04/2021 8:53 PM XR Chest One View (Exam End: 11/05/2021 8:40 [...] requested your imaging first. Electronically signed by: Danielle Rausch MD, [facility] ([phone]), at 11/05/2021 9:48 AM XR Chest One View (Exam End: 11/06/2021 6:36 [...] first. Electronically signed by: Kimberley Pichardo MD, [facility] ([phone]), at 11/06/2021 6:47 AM Medications Scheduled Meds: [...] 0.9% 100 mL Mini-Bag Plus 2 g RgdnbjiioqiK37J ??? metroNIDAZOLE 500 mg Intravenous Q8H SONALI [...] 100 mcg/hr (11/07/21 06) ??? vasopressin Stopped (11/05/211813) ??? NORepinephrine 0 mcg/min (11/07/21699) ??? propofoL 50 mcg/kg/min (11/07/21699) ??? lidocaine (pf) 15 mL/hr at 11/05/21 0500 ??? nitroGLYcerin Stopped (11/04/212115) ??? sodium chloride 0.9% Stopped (11/04/212199) ??? niCARdipine 5 mg/hr (11/07/21599) PRN Meds:.vancomycin- intermittent dosing per levels, midazolam [...] #3011 11/07/21 9:22 AM * Lori Gilbert [facility] - 11/07/2021 5:10 AM EST AMV Protocol [...] tolerated. Lori Gilbert RCP * Noah Deluna GEOGRAPHIC INFORMATION SYSTEMS ANALYST - 11/06/2021 5:57 PM EST AMV Protocol: [...] this patient and discussed with the internet cafe manager, resident, fellow. ??I agree with the plan [...] 2021 with chest pain but r/o for MA. ??She had COVID in 2020 (she was not vaccinated). ??See note below with history provided by Ms. Lundy's mother. ?? Initial venous pH 7.09 lactate 65. ??CK 135, d-dimer 5000 (r/o for PE), Serum creatinine 1.55 (baseline ~ 1.0), hemoglobin 12.4, platelets 298, WBC 25, AST 72 ??ALT 79. ??Troponin 0.02. ?? Shortly after 3 pm FridayNov 05, Dr. Marek Alves, library assistant was bedside when she again went [...] about ICD. ? Valorie Obrien MD, Naye, [facility] Cardiology Attending? Patient info: Name: Aniya Lundy : 1985 PCP: Kenia Lawrence APRN PCP phone number: [phone] Date of Admission: 11/04/2021 ( Hospital Day [...] 0.9% Stopped (11/04/212199) ??? niCARdipine 5 mg/hr (11/06/21 1000) ??? [...] 0805 PHART 7.29* 7.21* 7.36 7.26* 7.38 XUY3QAP 40 46* 34* 46* 31* PO2ART 62* 66* 71* 85 92 RUN4YCC 18.9* 18.1* 18.6* 20.1 17.5* LACTATEVEN 0.9 0.8 1.0 0.7 0.8 YGQ9TNR 40 40 40 40 40 PFRATIOART2 155 165 178 212 230 VBG (Venous Blood Gas) Recent Labs 11/06/21 0746 11/06/21 0428 11/05/21 1653 11/05/21 1406 11/05/21 0805 11/04/21 0843 11/04/21 0733 PHVEN -- -- -- -- -- -- 7.09* PLF0SVR -- -- -- -- -- -- 66* PO2VEN -- -- -- -- -- -- 31 VBQ9QDP -- -- -- -- -- -- 19.7 LACTATEVEN 0.9 0.8 1.0 0.7 0.8 < > 6.5* < > = values in this interval not displayed. Mixed Venous Sat No results for input(s): E3YNFY2 in the last 168 hours. Objective: Vitals [...] Lines/Drains/Airways - ETT - central line - [place] - LDA Cath/EP sheath - Intra-aortic balloon pump - A-line - peripheral ivs x2 Labs: Recent Labs 11/06/21 0425 11/05/21 0108 11/04/21 1530 11/04/21 0735 WBC 17.0* 11.8* 16.8* 25.6* HGB 9.2* 9.7* 11.0* 12.9 HCT 28.5* 30.9* 34.9* 43.1 PLATELET 156 185 230 298 MCV 84.3 82.8 82.5* 86.9 Recent Labs 11/06/21 0425 11/05/21 1406 11/05/21 0108 11/04/21 0735 NA 138 137 137 140 CL 108* 108* 110* 104 CO2 19* 19* 19* 19* K 4.5 4.3 4.0 5.1* MAGNESIUM -- 0.99 0.80 1.04 PHOS -- -- 2.9 6.2* CALCIUM 7.8* 7.7* 7.7* 9.4 BUN 14 15 17 20* CREATININE 1.34* 1.17 0.78 1.55* LFTs Recent Labs 11/06/21 04211/04/21 0735 PROT 5.3* 6.8 ALBUMIN 3.3 4.4 AST 107* 72* ALT 64* 79* ALKPHOS 61 88 BILITOT 0.2 0.2 BILIDIR 0.2 -- Coags Recent Labs 11/06/21 04211/04/21 0735 INR 1.1 -- PT 12.4 -- [...] 0805 PHART 7.29* 7.21* 7.36 7.26* 7.38 EHE4QXB 40 46* 34* 46* 31* PO2ART 62* 66* 71* 85 92 BZW5ZET 18.9* 18.1* 18.6* 20.1 17.5* LACTATEVEN 0.9 0.8 1.0 0.7 0.8 OAO9HSK 40 40 40 40 40 PFRATIOART2 155 165 178 212 230 VBG (Venous Blood Gas) Recent Labs 11/06/21 0746 11/06/21 0428 11/05/21 1653 11/05/21 1406 11/05/21 0805 11/04/21 0843 11/04/21 0733 PHVEN -- -- -- -- -- -- 7.09* SRQ7ZON -- -- -- -- -- -- 66* PO2VEN -- -- -- -- -- -- 31 WDY7AZW -- -- -- -- -- -- 19.7 LACTATEVEN 0.9 0.8 1.0 0.7 0.8 < > 6.5* < > = values in this interval not displayed. Mixed Venous Sat No results for input(s): B1HNUN6 in the last 168 hours. Microbiology: Microbiology Results (Last 30 days) Procedure Component Value Units Date/Time Blood culture [[id number]] Collected: 11/04/21 2250 Lab Status: Preliminary result Specimen: Blood from Hand, Right Updated: 11/05/212300 Blood Culture No growth at 1 day. Blood culture [[id number]] Collected: 11/04/21 2215 Lab Status: Preliminary result Specimen: Blood from Antecubital, Right Updated: 11/05/21 230 Blood Culture No growth at 1 day. COVID-19 PCR [[id number]] Collected: 11/04/21 0735 Lab Status: Final result [...] using the Simplexa COVID-19 Direct Assay by [employer] as authorized by the FDA issued Emergency [...] Department of Pathology and Laboratory Medicine at [facility], certified under the Clinical Laboratory Improvement Amendments [...] fact sheets at the following FDA website: https://www.fda.gov/medical-devices/mwhqbbgytex-yaruipx-6272-ogpne-66-iweabwxdw- nyv-nfclcpucxilmyx-xeenynf-devices/ceuoq-oappljtyesy-wtue SARS-CoV-2 Source RESILIENT TILE INSTALLER Swab Imaging: Results for orders placed or [...] requested your imaging first. Electronically signed by: JIM CARL MD, [facility] ([phone]), at 11/04/2021 10:18 AM XR Abdomen 1 view (Generic) (Exam End: 11/04/2021 [...] requested your imaging first. Electronically signed by: JIM CARL MD, [facility] ([phone]), at 11/04/2021 10:[address] Head wo Contrast (Generic) (Exam End: 11/04/2021 [...] requested your imaging first. Electronically signed by: Alejo Garcia MD, [facility] ([phone]), at 11/04/2021 9:[address] Angiogram Chest for Pulmonary Embolus w [...] requested your imaging first. Electronically signed by: JIM CARL MD, [facility] ([phone]), at 11/04/2021 9:52 AM XR Chest One View (Exam End: 11/04/2021 8:22 [...] first. Electronically signed by: Jennifer Bassett MD, [facility] ([phone]), at 11/04/2021 8:53 PM XR Chest One View (Exam End: 11/05/2021 8:40 [...] requested your imaging first. Electronically signed by: Danielle Rausch MD, [facility] ([phone]), at 11/05/2021 9:48 AM XR Chest One View (Exam End: 11/06/2021 6:36 [...] first. Electronically signed by: Kimberley Pichardo MD, [facility] ([phone]), at 11/06/2021 6:47 AM Medications Scheduled Meds: [...] having increased secretions overnight RT SHAHID * Jhoanne Tobias RN - 11/05/2021 8:15 PM EST Per [...] vent. Will cont to monitor * Binh Breen, RT - 11/05/2021 6:25 PM EST 1720: [...] disease Added automatically from request for surgery [id number] ??? Chest pain ETT 2014- negative ST III [...] this patient and discussed with the internet cafe manager, resident, fellow. I agree withthe plan noted [...] ~ 480 or less. She presented to [facility] in Sep 2021 with chest pain but r/o for MA. She had COVID in 2020 (she was not vaccinated). See note below with history provided by Ms. Lundy's mother. ?? Initial venous pH 7.09 lactate 65. CK 135, d-dimer 5000 (r/o for PE), Serum creatinine 1.55 (baseline ~ 1.0), hemoglobin 12.4, platelets 298, WBC 25, AST 72 ALT 79. Troponin 0.02. ?? Shortly after 3 pm FridayNov 05, Dr. Marek Alves, library assistant was bedside when she again went [...] about ICD. ?? Valorie Obrien MD, Naye, [facility] Cardiology Attending ?? Admit Date: 11/04/2021 Aniya Lundy is a 36 y.o. female With history of bipolar disorder and recent COVID who presented with cardiac arrest with subsequent repeat arrest with transient ST elevations followed by VT/VF arrest who was found to have diffuse vasospasm in all arterial beds on [facility] undergoing hypothermia protocol and on treatment for vasospasm. Interval events / Subjective: - Started on nicardipine post-cath. - [facility] with IABP and PAC placement. - Vascular [...] PVR 1.3 NORRIS HELENE 0.92 Vent PS: 12/, 40% (15) breathing at 12-13 7.38/ I's and O's: Intake/Output Summary (Last 24 [...] 850 started. Pt was then taken to open hearth furnace laborer. Upon arrival back to unit, unable to dopple rt pedal pulse. Team notified, vascular and open hearth furnace laborer team consulted, unable to doppel pulses in RTLE.shift supervisor film processing notified. Xrays ordered for swan/ett/IABP placement/confirmation. * [...] before the patient was take to the open hearth furnace laborer. Full report to follow in the morning. Farnces Alatorre MD Clinical Neurophysiology Fellow * [facility] - 11/04/2021 3:30 PM EST Respiratory Care [...] to 18 per ABG. Pt transported to [facility] [address] RCP * Haley Murphy, [facility] - 11/04/2021 9:16 AM EST Social Work Note: ED SURVEY CHIEF spoke with Zay Lozano via phone [phone]. Blake shared he feels traumatized by the [...] medical team will update him later. States has told him Aniya will need to [...] anxiety and stress. Engaged easily with this conventional mortgage underwriter and was welcoming of support. HAROON Subramanian, [facility] Clinical Color Grinder Office of Care Management [phone] #[phone] documented in this encounter H&P Notes * [...] first event at home and another in [facility]. On telemetry, her polymorphic VT then VF [...] not have any first degree relatives with MA history. The indications, expected benefits, and potential [...] is in the chart. - Aspirin 300mg MA given - Heparin bolus and drip given - Amiodarone 300mg bolus then drip started - laborer brush clearing alert called (discussed with Drs. Obrien and Lorie) - Consent reviewed and signed - No obvious CI to DAPT - Sedation plan: on propofol and fentanyl - FULL CODE Uday Alves MD 11/04/2021 3:37 PM * Valorie Obrien MD - 11/04/2021 1:14 PM EST Images from the original note were not included. [facility] [place] [address] [place] [address] ? INPATIENT CARDIOLOGY ADMISSION H&P ? Date of Consultation: 11/04/2021 Admit Date: 11/04/2021 ?? I have seen and examined this patient and discussed with the internet cafe manager, resident, fellow. I agree withthe plan noted [...] 2021 with chest pain but r/o for MA. She had COVID in 2020 (vaccination status unclear). See note below with history provided by Ms. Lundy's mother. Initial venous pH 7.09 lactate 65. CK 135, d-dimer 5000 (r/o for PE), Serum creatinine 1.55 (baseline ~ 1.0), hemoglobin 12.4, platelets 298, WBC 25, AST 72 ALT 79. Troponin 0.02. Shortly after 3 pm today, Dr. Marek Alves, library assistant was bedside when she again went into Vfib.While the etiology of her arrest is still not clear (she is at relatively low risk for obstructive coronary artery disease), I feel that defining her coronary anatomy is reasonable. We will also havea formal echocardiogram. Valorie Obrien MD, Naye, [facility] Cardiology Attending ?? Hospital Day [...] months. Aniya had a recent visit to [facility] ED in mid September with sharp chest [...] ENDOSCOPY performed by Dudley Alva MD at [facility] ENDOSCOPY ? Allergies Allergen Reactions [...] NORepinephrine Stopped (11/04/21827) ??? propofoL 30 mcg/kg/min (11/04/21 0850) ? Family History: Family History Family History [...] Date ED from 11/04/2021 in Emergency Department [facility] ED from 10/10/2021 in Emergency Services at [facility] Weight 70 kg (154 lb 5.2 oz) [...] the setting of cardiac arrest - Place yang, monitor urine output and electrolytes, no need for GEOGRAPHIC INFORMATION SYSTEMS ANALYST at this time ?? GI - Place OGT - Stress ulcer ppx ?? ID - Will obtain blood cultures, no concern for active infection at this time based on history ? FULL CODE Nex of kin: Mother Shannon [phone] (verbal consent for central line obtained) ? Uday (Cielo) MD [facility] Fellow Pager [phone] ? documented in this encounter Procedure Notes * Leonora Mandujano MD - 11/08/2021 1:47 PM ESTAssociated Order(s): EEG 24 HOUR MONITORING, PORTABLE [facility] Department of Neurology Inpatient Continuous EEG Report [...] BID Shana Zurita MD 17 g at 218 ??? acetaminophen (Tylenol) tablet 650 mg 650 [...] tablet 30 mg 30 mg Oral Q8H PRUday Padgett MD ??? white petrolatum-mineral oiL (Eucerin) cream Topical (Top) Q8H SONALI Uday Alves MD Given at 11/06/21 2200 ??? lidocaine (pf) (Xylocaine) (4 mg/mL) in dextrose 5% 500 mL infusion Continuous PRN Jama Melo MD 15 mL/hr at 11/05/21 0500 Rate Verify at 11/05/21 0500 ??? nitroGLYcerin (200 mcg/mL) in dextrose 5% 250 mL infusion Continuous PRJama Benavides MD Stopped at 11/04/212115 ??? sodium chloride 0.9% infusion Continuous PRJama Benavides MD Stopped at 11/04/212199 ??? iohexoL (Omnipaque) (350 mg/mL) solution Once PRN Jama Melo MD 12 mL at 11/04/211815 ??? niCARdipine (Cardene) (0.2 mg/mL) in sodium chloride 200 mL infusion 5 mg/hr Intravenous Continuous Stock, Fausto Garcia MD Held at 11/08/21 1222 METHODS: A [...] EKG. Video was recorded during the session. FIRER MARINE'S REPORT: Performed by: Leon Clark At the onset of the recording the patient was Intubated. Movement and other artifact was not significant. Comments:None [facility] Department of Neurology Critical Care Continuous EEG Report Patient: Aniya Lundy, [id number] Date: 11/08/21 Start Time: 05:00 11/07/2021 End [...] - I reviewed the EEG with the TRUCK HOP/Epilepsy fellow, and I agree with the interpretation as documented. Darien Zavala MD, PhD Professor of Neurology [facility] Clinical Neurophysiology Laboratory [facility] * Leonora Mandujano MD - 11/08/2021 1:36 PM EST [facility] Department of Neurology Inpatient Continuous EEG Report [...] Nightly Jerrod Muse MD 40 mg at 11/07/215 ??? dexmedetomidine (Precedex) (4 mcg/mL) in sodium [...] Q8H SONALI Uday Alves MD Given at 11/06/212199 ??? lidocaine (pf) (Xylocaine) (4 mg/mL) in [...] EKG. Video was recorded during the session. FIRER MARINE'S REPORT: Performed by: Leon Clark At the onset of the recording the patient was Intubated. Movement and other artifact was not significant. Comments:None [facility] Department of Neurology Critical Care Continuous EEG Report Patient: Aniya Lundy, [id number] Date: 11/08/21 Start Time: 05:00 11/07/2021 End Time: :11/08/2021 Duration: 24 hours Background Symmetry Symmetric Continuity [...] - I reviewed the EEG with the TRUCK HOP/Epilepsy fellow, and I agree with the interpretation as documented. Darien Zavala MD, PhD Professor of Neurology [facility] Clinical Neurophysiology Laboratory [facility] * Leonora aMndujano MD - 11/07/2021 12:23 PM EST [facility] Department of Neurology Inpatient Continuous EEG Report Name of the Patient: Anyia Lundy Date of : 1985 Date of [...] SONALI Yonas Olivares MD 200 mL/hr at 11/07/21 [...] Q8H SONALI Uday Alves MD Given at 11/06/212199 ??? AMIOdarone (Cordarone) injection Once PRN Jama [...] Continuous Fausto Earl MD 25 mL/hr at 11/07/21 1008 5 [...] EKG. Video was recorded during the session. FIRER MARINE'S REPORT: Performed by: Leon Clark At the onset of the recording the patient was Intubated. Movement and other artifact was not significant. Comments:None [facility] Department of Neurology Critical Care Continuous EEG Report Patient: Aniya Lundy, [id number] Date: 11/07/21 Start Time: 05:00 11/06/2021 End Time: 05:11/07/2021 Duration: 24 hours Background Symmetry Symmetric Continuity [...] - I reviewed the EEG with the TRUCK HOP/Epilepsy fellow, and I agree with the interpretation as documented. Darien Zavala MD, PhD Professor of Neurology [facility] [place] Clinical Neurophysiology Laboratory [facility] * Tameka Spann MD - 11/06/2021 6:00 [...] to the planned procedure. Hand Hygiene: The telephone information clerk did perform hand hygiene prior to arterial [...] Mandujano MD - 11/06/2021 12:33 PM EST [facility] Department of Neurology Inpatient Continuous EEG Report [...] 0.9% 100 mL Mini-Bag Plus 1 g [id number] Tameka Spann MD Stopped at 11/06/21 0837 [...] suppository 975 mg 975 mg Rectal Q8H [facility] Richard Asher MD ??? fentaNYL (PF) (50 mcg/mL) infusion [...] Continuous PRN Jama Melo MD Stopped at 01/16/22 2116 ??? sodium chloride 0.9% infusion Continuous PRN [...] EKG. Video was recorded during the session. FIRER MARINE'S REPORT: Performed by: Leon Clark At the onset of the recording the patient was Intubated. Movement and other artifact was not significant. Comments:None [facility] Department of Neurology Critical Care Continuous EEG Report Patient: Aniya Lundy, [id number] Date: 11/06/21 Start Time: 05:00 11/05/2021 End Time: 05:11/06/2021 Duration: 24 hours Background Symmetry Symmetric Continuity [...] - I reviewed the EEG with the TRUCK HOP/Epilepsy fellow, and I agree with the interpretation as documented. Darien Zavala MD, PhD Professor of Neurology [facility] Clinical Neurophysiology Laboratory [facility] * Darien Zavala MD - 11/05/2021 9:32 AM EST [facility] Department of Neurology Inpatient Continuous EEG Report [...] suppository 975 mg 975 mg Rectal Q8H SONALI Richard Asher MD ??? fentaNYL (PF) (50 mcg/mL) infusion [...] mg/mL) 2% injection syringe Once PRN Jama Meol MD 100 mg at11/04/21 1707 ??? lidocaine [...] EKG. Video was recorded during the session. FIRER MARINE'S REPORT: Performed by: Leon Clark At the onset of the recording the patient was Intubated. Movement and other artifact was not significant. Comments:None [facility] Department of Neurology Critical Care Continuous EEG Report Patient: Aniya Lundy, [id number] Date: 11/05/21 Start Time/End time: 11/04/21 11:04 [...] - I reviewed the EEG with the TRUCK HOP/Epilepsy fellow, and I agree with the interpretation as documented. Darien Zavala MD, PhD Professor of Neurology [facility] Clinical Neurophysiology Laboratory [facility] documented in this encounter Nursing Notes * [...] AM EST Fiance called. Updated from Attending MD. * Gabriela Astorga RN - 11/04/2021 8:30 AM EST Mother called. Updated from Attending MD. [phone] would appreciate updates. * Horace Nielsen MD [...] eye gel and it was removed with pax-golls-qyhd ventilation followed by jaw thrust and end-tidal [...] She was most recently seen at the [facility] emergency department onOctober 10, 2021 for atypical chest pain with an unremarkable work-up. I spoke to her other at 8:15. She knows that she has been having intermittent chest pain and possible GI symptoms. Reporrst Call back is [phone] Spoke to dk at 8:40. Woke Dk [...] then decision made to intubate. ?? VBG 7., BE -10, lactate 6.5, K 4.48 ?? Intubated and OGT place. ?? Briefly on norepi afterwards ?? A line placed. ?? Cardiology consulted ?? ABG post intubation and arterial line: 7./44/199, lactate 2.15 Prehospital EKG EXAM: Last value [...] documentation on the unit. Horace Nielsen MD 11/04/21 09 Horace Nielsen MD 11/04/21 0920 Horace Nielsen MD 11/04/21 09 * Saeid Le RN - 11/04/2021 7:27 AM EST ZAY Lozano - [phone] In car in parking lot, has medication [...] - EP will sign off. Please page [phone] with questions or concerns. ?? Needs for Transition of Care: Plan for discharge is: Home w/ Services Home Health Services: Physical Therapy, Registered Nurse Agency Referrals & Follow-up Care: RN CM and patient/marketing development representative discussed agencies which serve their preferred geographic area. affiliations were identified and they were educated about their right to choose where referrals are placed. Patient requests referral to [facility] PHONE: [phone] FAX: [phone] RN/ PT Patient requests referral to [facility] @ [facility] [place], [place] [facility] Expected date of discharge: 11/14/2021 Referral routed to the [employer] for matching with agency/vendor and to provide any required information. Transportation: family or friend will provide Mother Shannon Zamora [phone] Functional status prior to admission: Independent Home Environment: Others in the home: friend(s) (Dk Mos, boyfriend, intermittently stays at [facility] apartment.). Current Living Arrangements: home/apartment/condo. Accessibility Concerns:No [...] Insurance: N/A Prescription Coverage: Yes Preferred Pharmacy: [facility] [address] [place] [address] [address] [id number] [place], [place] - [address] [facility] [address] [facility] [id number] [facility] [id number] - [place], [place] - [address] [facility] [place] [place] [address] This plan was formulated with input from patient, and team. All are in agreement with plan. Lula Pimentel booker M-Th * Care Management - Sherry Arriola RN - 11/12/2021 2:17 PM EST OFFICE OF CARE MANAGEMENT PROGRESS NOTE LOS: Hospital Day 8 days Chart reviewed, care reviewed with primary team and at interdisciplinary rounds. Patient continues to meet inpatient level of care related to: Per MD Parminder note dated 11/12/2021: Assessment & Plan: Aniya [...] friend(s) (Dk Mos, boyfriend, intermittently stays at Aniya's apartment.). Current [...] Insurance: N/A Prescription Coverage: Yes Preferred Pharmacy: [facility] [address] [place] [id number] [address] [facility] [id number] - [place], [place] - [address] [facility] [address] Last Physical Therapy Recommendation: acute rehabilitation facility with to be determined Last Occupational Therapy Recommendation: with Plan for discharge is: Pending Hospital Course and PT/OT Recommendations Agency Referrals & Follow-up Care: Pending hospital course. Transportation: Shannon [place] (Mother) Barriers to discharge: TBD Plan going forward: Care Management will continue to follow and assist with discharge planning and coordination of care as indicated. Anticipated Date of Discharge: 11/15/2021 Plan to monitor patient progress. Assess care needs and make referrals as needed. ICD placement today. Advance diet and work w/PT/OT. Patient's mother called at 13:20 today concerned about a conversation she had w/nAiya; she reports Aniya stated she thinks she [...] hosptial. Working with Brenda polanco APRN in [facility] and also has a therapist there. [...] ALIRIO Bipolar PTSD Past hospitalization and location: [phone] multiple at [facility] and [facility] May 2020 [facility] - [place] w/o plan or intent Suicide [...] ENDOSCOPY performed by Dudley Alva MD at [facility] ENDOSCOPY Medications: Current Facility-Administered Medications [...] Q8H Prashant Johnson MD Stopped at 11/09/21 08 ??? amLODIPine (Norvasc) tablet 10 mg 10 [...] Q24H Shana Zurita MD 3 patch at 11/08/211620 And ??? lidocaine (Lidoderm) topical patch REMOVAL 3 patch Transdermal Q24H Shana Zurita MD ??? atorvastatin (Lipitor) tablet 40 mg 40 mg Oral QPM Jerrod Muse MD 40 mg at 11/08/21 162 ??? senna (Senokot) tablet 8.6 mg 8.6 [...] Q8H SONALI Uday Alves MD Given at 11/06/212199 ??? lidocaine (pf) (Xylocaine) (4 mg/mL) in dextrose 5% 500 mL infusion Continuous PRN Jama Melo MD 15 mL/hr at 11/05/21 0500 Rate Verify at 11/05/21 0500 ??? nitroGLYcerin (200 mcg/mL) in dextrose 5% 250 mL infusion Continuous PRN Jama Melo MD Stopped at 11/04/212115 ??? sodium chloride 0.9% infusion Continuous PRJama Benavides MD Stopped at 11/04/212199 ??? iohexoL (Omnipaque) (350 mg/mL) solution Once PRN Jama Melo MD 12 mL at 11/04/21 181 Medical Review of Systems: Constitutional: no fever, no chills HEENT: +sore throat, +right ear pain Cardiovascular: +chest pain Respiratory: no shortness of breath GI: no constipation or diarrhea /MEAT CARVER (include LMP if applicable): no issues urinating (catheter in place) Musculoskeletal: +muscle aches Integumentary: no rashes Neurological: +confusion, +memory issues Psychiatric: See above Social History: Has three children. Son is 18 yo and lives with his girlfriend. One daughter lives with patient's sister. Other daughter with patient's sister and grandmother. Lives in [place]. Sometimes her boyfriend stays there. Per H&P [...] slightly slowed rhythm ?? Language: fluent in nauruan, without paraphasic errors and without word finding [...] - Psychiatry will sign off, please page [phone] with any concerns Patient on IEA Status? IEA: NO, patient is not on IEA and does not have any psychiatric contraindication to discharge at the time of this assessment. Recommendations were communicated to primary team supervisor Prashant Johnson MD. Signed By: Yolanda Rahman [...] for a given code. HISTORY EXAM MDM DOIN / CPT CODE PF PF Straightforward 3200 / 39593 EPF EPF Straightforward 3210 / 83733 D D Low 3220 / 10615 C C Moderate 3230 / 65291 C C High 3240 / 17618 Associated attestation - Bert Huynh MD - [...] team. Bert Huynh MD Psychiatry Consultation Pager: [phone] * Consult Note - Cassidy Bowser RN - 11/09/2021 11:37 AM EST Cardiac rehab consult received on this patient with DX: Cardiac arrest. Patient has other medical and social issues that need to be managed first. PT/OT consults in place. Outpatient cardiac rehab referral can be reconsidered in the future. * Consult Note - Jono Prieto, [facility] - 11/08/2021 4:56 PM EST ?? The [...] may have. Alternately, during off-hours you nat ruano call [phone] to contact a pharmacist. * Consult Note [...] ENDOSCOPY performed by Dudley Alva MD at [facility] ENDOSCOPY Medications: Scheduled Meds: ??? ceFEPime (Maxipime) 2g vial attach to sodium chloride 0.9% 100 mL Mini-Bag Plus 2 g [id number] ??? amLODIPine 5 mg Oral Daily ??? [...] 13 119/67 93 % -- -- -- 11/07/211999 -- 92 bpm 92 15 138/65 91 [...] L Elbow flexion 5/5 R, 5/5 L Coil Strapper LE: 5/5 R, 5/5 L Hip flexion [...] Morgan Malin MD 11/08/2021 Consult Neurology Pager [phone] Associated attestation - Tiffany Unger DO - [...] medically able. Tiffany Unger D.O. Neurology Department [facility] [email or web address] Consult Note - Pantera Denton MD [...] Note: Added automatically from request for surgery [id number] ??? Borderline personality disorder ??? Post-traumatic stress [...] prior to ROSC. She was transported to [facility] where she sometime on FridayNovember 05 went [...] 100 mL infusion 500 mg Intravenous Q8H [facility] Yonas Olivares MD 200 mL/hr at 11/08/21 0415 500 mg at 11/08/21 0415 ??? midazolam (pf) (Versed) (1 mg/mL) injection [...] 250 mL infusion 0-100 mcg/min Intravenous Continuous Uady Alves MD 0 mL/hr at 11/07/21 0700 0 mcg/min at 11/07/21 0700 ??? famotidine (Pepcid) tablet 20 mg 20 mg Oral BID Uday Alves MD 20 mg at 11/07/215 ??? chlorhexidine (Peridex) 0.12 % oral solution [...] 5 mg/hr at 11/08/21 0448 No current Epic-ordered outpatient medications on file. Family History: Family [...] Position: Pulse: 94 100 96 97 Resp: 16 26 Temp: TempSrc: SpO2: 96% 95% 95% 96% [...] 2027 Attending: Pantera Denton MD Service Pager: [phone] Addendum I personally interviewed and examined the patient. There was limited history available from Ms. Lundy. 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 The only associated [...] ENDOSCOPY performed by Dudley Alva MD at [facility] ENDOSCOPY FamHx: Patient's mother does [...] visualize her capillaries. She does have nail kuwaiti on. Extremities: Warm and well perfused, 2+ [...] further evaluation of this. Infectious etiologies include [id number] infection coronary vasospasm which has been previously [...] consider above mentioned differentials. (1) Sandra Becerra, Zora??jaki P, Ryan Marquez, Moses F. Severe coronary spasm in a COVID- 19 patient. CatheterCardiovasc Interv. 2020;97(5):U559-U736. Doi:10.1002/ccd.43260. (2) Jass Layne, Onur Torres, Tan Layne. 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 Michael Pak MD Staff Drapery Estimator * Consult Note - Jhony Regan, DO - 11/07/2021 7:17 AM EST Neurology [...] ENDOSCOPY performed by Dudley Alva MD at [facility] ENDOSCOPY Medications: Scheduled Meds: ??? Vancomycin Level - MAR Order Reminder NOT APPLICABLE Once ??? LORazepam 1 mg Intravenous Q8H ??? lidocaine 3 patch Transdermal Q24H And ??? lidocaine 3 patch Transdermal Q24H ??? ceFEPime (Maxipime) 2g vial attach to sodium chloride 0.9% 100 mL Mini-Bag Plus 2 g [id number] ??? metroNIDAZOLE 500 mg Intravenous Q8H SONALI [...] 100 mcg/hr (11/07/21 06) ??? vasopressin Stopped (11/05/211813) ??? NORepinephrine 4 mcg/min (11/07/21 06) ??? propofoL 40 mcg/kg/min (11/07/21 06) ??? heparin (porcine) infusion Stopped (11/06/21 0759) ??? lidocaine (pf) 15 mL/hr at 11/05/21 0500 ??? nitroGLYcerin Stopped (11/04/212115) ??? sodium chloride 0.9% Stopped (11/04/21 2200) ??? niCARdipine 5 mg/hr (11/07/21 0600) ??? AMIOdarone 0.5 mg/min (11/07/21 0600) PRN Meds:.vancomycin- intermittent dosing per levels, Vancomycin [...] -- 92 % -- -- -- 11/06/21 1900 -- 54 bpm 54 14 -- 93 % -- -- -- 11/06/21 2000 37.9 ??C (100.2 ??F) 53 bpm 52 14 93/47 94 % 80 % -- Ventilator 11/06/212099 -- 55 bpm 55 19 -- 97 % -- -- -- 11/06/212111 -- -- -- -- -- 97 % 70 % -- Ventilator 11/06/210 37.8 ??C (100 ??F) 63 bpm 63 [...] Ratio Art 167 Diagnostic Tests and Imaging: [facility] 11/04/2021 Diffuse cerebral edema consistent with the history. Assessment: Aniya Lundy is a 36 y.o. female with PMHx of depression and anxiety who presented with cardiacarrest. Neurology is being consulted for concern of seizure. Mental status reassuring, arousable despite being on propofol and fentanyl gtt, overall on track tomake good cognitive recovery. Given diffuse vasospasm systemically, question MARINE STRUCTURAL WELDER vasospasm as well,though exam while limited by [...] wean Jhony Regan DO Consult Neurology Pager [phone] 11/07/2021 Associated attestation - Tiffany Unger DO [...] as documented. Tiffany Unger D.O. Neurology Department [facility] [email or web address] * Initial Assessments - Sherry Arriola, SYBIL - 11/06/2021 3:52 PM EST Office of Care Management Initial Assessment Sherry Arriola RN reviewed record and discussed patient with Care Team. Source of Information: Team, bedside nurse, medical record, and Parent (IA done w/ Shannon Zamora (mother) [phone]) Introduced self/reviewed role; services accepted. Reason for Hospitalization: Cardiac arrest Covid Vaccination Status: Unvaccinated (11/04.) Last COVID test: Lab Results Component Value Date COVID19 Not Detected 11/03/2020 [id number] Not Detected 11/04/2021 Past medical History: Past [...] admission,other (see comments) (10/10 - ED at [facility] for chest pain (see note)) Current Decision-Making Capacity: Surrogate Advance Care Planning: Attempt Cardiopulmonary Resuscitation - Inpatient <no information> -Advanced Directive: (TBD - none on file) If AD's have not been completed Shannon Zamora (mother) would be surrogate decision maker per [place] surrogate decision making law. (Only good for 180 days) Any patient receiving care at [facility] must abide by [place] law. The hierarchy for surrogate decision making [...] (i) The agent with financial power of general repair mechanic or a conservator appointed in accordance with RSA 464-A. (j) The guardian of the patient???s estate. Current Coping/Education/Information Needs: Pending hospital course. Current Functional Ability: Completely Dependent Functional Status Prior to Admission: Independent Home Environment: Others in the home: friend(s) (Dk Husain, boyfriend, intermittently stays at [facility]'s apartment.). Current Living Arrangements: home/apartment/condo. Accessibility Concerns:No steps to enter a first floor apartment, with the bathroom and bedroom on second floor.. Current DME: none Home Address confirmed as: [address] [facility] [address] (This is Shannon's mailing address that [facility] uses to get her mail). Physical address is: [address] [place] [address] Social & Family Supports: All names listed below confirmed with patient as current and correct Extended Emergency Contact Information Primary Emergency Contact: Shannon Zamora [facility] Mobile Relation: Mother Secondary Emergency Contact: [...] provided currently: support group(s) ([facility] [...] Insurance: N/A Prescription Coverage: Yes Preferred Pharmacy: [facility] [address] [place] [id number] [address] [facility] [id number] - [place], [place] - [address] [facility] [place] [address] [place] Status: Patient is a : unable to assess Mother reports patient is not a . Primary Care Provider: Kenia Lawrence APRN [phone] Patient/Caregiver Goals of Treatment: Pending hospital course and/or when medically stable discharge to home. Potential Needs for Transition of Care: other (see comments) (TBD - pending hospital course.) Agency Referrals: The patient/caregivers were provided with a list of [facility] agenies discussed with Shannon (patient's mother) which serve their preferred geographic location and they were educated about their right to choose where referrals are placed. Patient/Caregiver requests referral to (if needed,choice is). [facility] PHONE: [phone] FAX: [phone] Transportation: no concerns Transportation Anticipated: family or [...] planning. * Initial Assessments - Sherry Arriola, RN - 11/06/2021 2:37 PM EST Office of Care Management Initial Assessment Sherry Arriola, RN reviewed record and discussed patient with Care Team. Source of Information: Team, bedside nurse, medical record, and Other (Chart review. Left message on mother's listed cell # to perform/complete IA.) In voice message Introduced self/reviewed role. Reason for Hospitalization: Cardiac arrest. Covid Vaccination Status: (TBD) Last COVID test: Lab Results Component Value Date COVID19 Not Detected 11/03/2020 [id number] Not Detected 11/04/2021 Past medical History: Past [...] admission,other (see comments) (10/10 - ED at [facility] for chest pain (see note)) Current Decision-Making Capacity: Surrogate (Shannon Zamora (mother) [phone]) Advance Care Planning: Attempt Cardiopulmonary Resuscitation - Inpatient <no information> -Advanced Directive: (TBD - none on file) If AD's have not been completed Shannon Zamora (mother) would be surrogate decision maker per [place] surrogate decision making law. (Only good for 180 days) Any patient receiving care at [facility] must abide by [place] law. The hierarchy for surrogate decision making [...] (i) The agent with financial power of general repair mechanic or a conservator appointed in accordance with [...] unable to assess Home Address listed as: [address] [place] [address] Social & Family Supports: All names listed below confirmed with patient as current and correct Extended Emergency Contact Information Primary Emergency Contact: Shannon Zamora [facility] Mobile Relation: Mother Secondary Emergency Contact: [...] Insurance: N/A Prescription Coverage: Yes Preferred Pharmacy: [facility] [address] [place] [address] [address] [id number] - [place], [place] - [address] [place] [address] Status: Patient is a : unable to assess Primary Care Provider: Kenia Lawrence, HEMATOLOGY TECHNOLOGIST [phone] Patient/Caregiver Goals of Treatment: Pending hospital course [...] ENDOSCOPY performed by Dudley Alva MD at [facility] ENDOSCOPY Medications: Scheduled Meds: ??? [...] -- -- 24 96 % -- -- 11/05/211999 37.1 ??C (98.8 ??F) 78 bpm 75 [...] Hypochromia Slight Tear Drop Cells 1-5 /HPF Cabot Cells 1-5 /HPF Stippled RBCs Present >1/HPF [...] Morgan Malin MD 11/06/2021 Consult Neurology Pager [phone] ATTENDING NOTE: I reviewed the pertinent aspects [...] Quezada MD - 11/05/2021 9:19 AM EST [facility] Department of Surgery Inpatient Consult Note Consultation [...] of 6.5. She was taken to the open hearth furnace laborer with the following findings: - Severe spasm of RFA & Near complete occlusion from apparent spasm around 6 Fr sheath. - Patient cardiac arrested x8 in the open hearth furnace laborer. Now with R AIRPORT OPERATIONS DUTY MANAGER IABP, 7F sheath. ECHO (11/04/2021) - EF: [...] follow [X] Consult service to sign off [facility] Vascular Surgery Resident pager [phone] 11/05/2021 Associated attestation - Joseph Baez MD [...] cath w/ left coronary angiography, IABP placement, Beulah jazmin catheter insertion, cooling catheter placement in [...] tablet 1,000 mg 1,000 mg Oral Q8H [facility] Richard Asher MD Or ??? acetaminophen (Tylenol) (32.02 mg/mL) oral liquid 1,000 mg 1,000 mg Oral Q8H Richard Staples MD Or ??? acetaminophen (Tylenol) suppository 975 mg 975 mg Rectal Q8H [facility] Richard Asher MD ??? fentaNYL (PF) (50 mcg/mL) infusion [...] BID Uday Alves MD 20 mg at 11/05/2116 ??? chlorhexidine (Peridex) 0.12 % oral solution 15 mL 15 mL Oral BID Uday Alves MD 15 mL at 11/05/21815 ??? propofoL (Diprivan) (10 mg/mL) infusion 0-50 mcg/kg/min Intravenous Continuous Uday Alves MD 21 mL/hr at 11/05/21 0816 50 mcg/kg/min at 11/05/21815 And ??? propofoL (Diprivan) (10 mg/mL) bolus from infusion 10 mg 10 mg Intravenous Q10 Min PRN Uday Alves MD ??? white petrolatum-mineral oiL ophthalmic ointment 1 each Both Eyes BID Uday Alves MD 1 each at 01/17/22 0816 ??? sodium chloride 0.9 % (flush) [...] Solution ??? fluticasone (Flonase Sensimist) 27.5 mcg/actuation Palmer, Suspension every 24 hours. ??? fluticasone propionate [...] ENDOSCOPY performed by Dudley Alva MD at [facility] ENDOSCOPY Allergies: Allergies Allergen Reactions [...] PCR Not Detected Not Detected SARS-CoV-2 Source RESILIENT TILE INSTALLER Swab Hemogram Result Value Ref Range WBC [...] Negative mcL Appearance UA Clear Clear Spec [place] UA 1.020 1.005 - 1.030 Color UA [...] requested your imaging first. Electronically signed by: JIM CARL MD, [facility] ([phone]), at 11/04/2021 10:18 AM XR Abdomen 1 view (Generic) (Exam End: 11/04/2021 [...] requested your imaging first. Electronically signed by: JIM CARL MD, [facility] ([phone]), at 11/04/2021 10:[address] Head wo Contrast (Generic) (Exam End: 11/04/2021 [...] requested your imaging first. Electronically signed by: Alejo Garcia MD, [facility] ([phone]), at 11/04/2021 9:[address] Angiogram Chest for Pulmonary Embolus w [...] requested your imaging first. Electronically signed by: JIM CARL MD, [facility] ([phone]), at 11/04/2021 9:52 AM XR Chest One View (Exam End: 11/04/2021 8:22 [...] first. Electronically signed by: Jennifer Bassett MD, [facility] ([phone]), at 11/04/2021 8:53 PM Assessment: Aniya Lundy is a 36 y.o. [...] Malin MD IM, PGY-1 Consult Neurology Service #[id number] 11/05/2021 ATTENDING NOTE: I reviewed the pertinent [...] Ruelas MD - 11/04/2021 9:33 PM EST [facility] Department of Surgery Inpatient Consult Note Consultation [...] of 6.5. She was taken to the open hearth furnace laborer with the following findings: - Severe spasm of RFA & Near complete occlusion from apparent spasm around 6 Fr sheath. - Patient cardiac arrested x8 in the open hearth furnace laborer. Now with R AIRPORT OPERATIONS DUTY MANAGER IABP, 7F sheath. ECHO (11/04/2021) - EF: [...] ENDOSCOPY performed by Dudley Alva MD at [facility] ENDOSCOPY HOME MEDICATIONS: No current [...] Solution ??? fluticasone (Flonase Sensimist) 27.5 mcg/actuation Palmer, Suspension every 24 hours. ??? fluticasone propionate [...] any questions regarding this consult, please page [phone] if you have any further questions. [X] Consult service to continue to follow [] Consult service to sign off Rachel Ruelas Vascular Surgery Fellow pager [phone] 11/04/2021 Associated attestation - Joseph Baez MD [...] Procedure Note: Patient Name: Aniya Lundy : [id number] MR#: [id number] Case Date: 11/04/2021 Quality Compliance Coordinator: Surgeon(s) and Role: * Jama Melo MD - Primary * Warren Ball MD - Fellow Preoperative diagnosis: Cardiac arrest Postoperative diagnosis: same, uncertain etiology. Diffuse coronary spasm and multiple episodes of VT/VF during procedure. Procedure(s) performed: Left coronary angiography, IABP placement, Beulah jazmin catheter insertion, cooling catheter placement in IVC. Access: 7 Fr RFA carrylng IABP, 9 Fr RIJ carrying Beulah, 9.5 Fr RFV cooling catheter A time-out [...] to perform angiography of the RCA. 3. Beulah Jazmin catheter placed via the RIJ with [...] sufficiently to allow transport back to the [facility] in guardedcondition. Full report to follow. [...] to bedside ROSC had been achieved. See Software Configuration Engineer note for information prior to LS RN arrival. Plan: Remain on Floor- CV 22 Please page Life Safety at [phone] with any additional questions or concerns. Teena Decker, RN 3:56 PM November 04, 2021 * ED Procedure Note - Dudley Owens MD - 11/04/2021 10:42 AM ESTAssociated Order(s): Arterial Line; Intubation Arterial Line Date/Time: 11/04/2021 10:42 AM Performed by: Dudley Owens MD Authorized by: Horace Nielsen MD Pierz Protocol: Emergent situation Patient identity confirmed: Arm band Time out: Immediately prior to the procedure a time out was called A time out verifies correct patient, procedure, equipment, geophysical support specialist and site/side marked as required: [...] Owens MD Authorized by: Yohannes Dhillon MD Pierz Protocol: Emergent situation Patient identity confirmed: Arm band Time out: Immediately prior to the procedure a time out was called A time out verifies correct patient, procedure, equipment, geophysical support specialist and site/side marked as required: [...] from the original note were not included. [facility] [place] [id number] INPATIENT CARDIOLOGY ADMISSION H&P Date of Consultation: 11/04/2021 have seen and examined this patient and discussed with the internet cafe manager, resident, fellow. I agree with the plan [...] ~ 480 or less. She presented to [facility] in Sep 2021 with chest pain but r/o for MA. She had COVID in 2020 (vaccination status unclear). See note below with history provided by Ms. Lundy's mother. ?? Initial venous pH 7.09 lactate 65. CK 135, d-dimer 5000 (r/o for PE), Serum creatinine 1.55 (baseline ~ 1.0), hemoglobin 12.4, platelets 298, WBC 25, AST 72 ALT 79. Troponin 0.02. ?? Shortly after 3 pm today, Dr. Marek Alves, library assistant was bedside when she again went into Vfib.While the etiology of her arrest is still not clear (she is at relatively low risk for obstructive coronary artery disease), I feel that defining her coronary anatomy is reasonable. We will also havea formal echocardiogram. ?? Valorie Obrien MD, Naye, [facility] Cardiology Attending ?? Admit Date: [...] months. Aniya had a recent visit to [facility] ED in mid September with sharp chest [...] ENDOSCOPY performed by Dudley Alva MD at [facility] ENDOSCOPY Allergies Allergen Reactions ??? [...] Eyes BID ??? fentaNYL ??? NORepinephrine Stopped (11/04/21827) ??? propofoL 30 mcg/kg/min (11/04/21849) Family History: Family History Problem Relation Age [...] output data in the 24 hours ending 11/04/21920 Wt & BMI By Encounter Date ED from 11/04/2021 in Emergency Department [facility] ED from 10/10/2021 in Emergency Services at [facility] Weight 70 kg (154 lb 5.2 oz) [...] the setting of cardiac arrest - Place yang, monitor urine output and electrolytes, no need for GEOGRAPHIC INFORMATION SYSTEMS ANALYST at this time GI - Place OGT - Stress ulcer ppx ID - Will obtain blood cultures, no concern for active infection at this time based on history FULL CODE Nex of kin: Mother Shannon [phone] (verbal consent for central line obtained) Uday (Cielo) MD [facility] Fellow Pager [phone] * Consult Note - Jhony Regan DO - 11/04/2021 9:02 AM EST Neurology [...] Solution ??? fluticasone (Flonase Sensimist) 27.5 mcg/actuation Palmer, Suspension every 24 hours. ??? fluticasone propionate [...] Solution ??? fluticasone (Flonase Sensimist) 27.5 mcg/actuation Palmer, Suspension every 24 hours. ??? fluticasone propionate [...] ENDOSCOPY performed by Dudley Alva MD at [facility] ENDOSCOPY Allergies: Allergies Allergen Reactions [...] PCR Not Detected Not Detected SARS-CoV-2 Source RESILIENT TILE INSTALLER Swab Hemogram Result Value Ref Range WBC [...] Negative mcL Appearance UA Clear Clear Spec [place] UA 1.020 1.005 - 1.030 Color UA [...] Patient discussed with Dr. Zhu. Jhony Regan, Neurology, PGY-3 Consult Neurology Service #[id number] 11/04/2021 [...] AM EST Routine Obstetrics [place] [address] Emili Cabrera MD [facility] [place] [address] 09/26/2024 6:00 PM EST Appointment [facility] [place] [phone] 10/16/2024 Hospital Encounter [facility] [phone] Dudley Aguilar MD [facility] DR OBSTETRICS [place] [address] 11/08/2024 10:00 AM EST Hospital Encounter [place] [address] Arrived Pending Results Name Type [...] SERUM Routine 11/08/2021 7 :05 PM EST ASSISTANT SOFTBALL COACH ELECTRODE PRFM Routine 11/08/19 1:47 PM EST [...] AM EST BLOOD GAS ARTERIAL POC Routine 9:40 AM EST XR CHEST ONE VIEW [...] EST HC CBC,PLT & AUTO DIFF Routine 12:30 AM EST BASIC METABOLIC PANEL Routine 11/07/2021 12:30 AM EST BLOOD GAS ARTERIAL POC Routine 2 8:44 PM EST HC MAGNESIUM, SERUM Routine [...] AM EST BLOOD GAS ARTERIAL POC Routine 4:28 AM EST HC UNFRACTIONATED HEPARIN (HEP UFH) STAT 11/06/2021 4:25 AM EST SCAN, PERIPHERAL BLOOD Routine 4:25 AM EST HEMOGRAM Routine 11/06/2021 4:25 AM EST DIFFERENTIAL, AUTOMATED Routine 11/06/19 4:25 AM EST HC PROTHROMBIN TIME Routine 11/06/2021 4 :25 AM EST HC CBC,PLT & AUTO DIFF Routine 4:25 AM EST HEPATIC FUNCTION PANEL Routine 4:25 AM EST BASIC METABOLIC PANEL Routine 11/06/2021 4:25 AM EST BLOOD GAS ARTERIAL POC Routine 4:53 PM EST EKG 12-LEAD STAT 11/05/2021 4:01 PM EST Cardiac arrest BLOOD GAS ARTERIAL POC Routine 2:06 PM EST HC MAGNESIUM, SERUM Timed [...] Routine 11/04/2021 12:12 PM EST Cardiac arrest [id number] Routine 11/04/2021 10:51 AM EST INSERT [...] 11/04/2021 7:37 AM EST RAPID COVID-19 PCR ([facility]) STAT 11/04/2021 7:35 AM EST SCAN, PERIPHERAL BLOOD STAT 2 7:35 AM EST HEMOGRAM STAT 11/04/2021 7:35 AM EST DIFFERENTIAL, AUTOMATED STAT 11/04/19 22 7:35 AM EST D-DIMER, QUANTITATIVE STAT 11/04/2021 [...] AM EST HC ACETAMINOPHEN, SERUM STAT 11/04/19 7:35 AM EST HC SALICYLATES, SERUM STAT [...] (Bezet) 445 ms MUSE SYSTEM Calculated P [place] 25 degrees MUSE SYSTEM Calculated R [place] 23 degrees MUSE SYSTEM Calculated T [place] 21 degrees MUSE SYSTEM INTERPRETATION Normal sinus [...] 4:28 AM EST) Neutrophil % 55.1 % [facility] Neutrophil Absolute 7.45(H) 1.70 - 6.10 x10(3)/[facility] Lymph % 30.8 % [facility] Lymphocytes Abs 4.2(H) 0.9 - 3.2 x10(3)/[facility] Monocyte % 6.6 % [facility] Monocyte Abs 0.9 0.3 - 0.9 x10(3)/[facility] Eos % 4.9 % [facility] Eosinophils Abs 0.7(H) 0.0 - 0.4 x10(3)/[facility] Basophil % 0.8 % [facility] Baso Absolute 0.1 0.0 - 0.1 x10(3)/[facility] Immature Gran % 1.80 % [facility] Comment: Immature granulocytes(IG's)percentage and absolute count will include metamyelocytes, myelocytes, and promyelocytes. Blood smears from CBCs yielding IG's will be scanned manually for concordance. If this scan disagrees with the automated IG or if promyelocytes are noted, a manual differential will be performed. Immature Gran Absolute 0.24(H) 0.00 - 0.04 x10(3)/[facility] Blood 11/14/2021 4:28 AM EST 11/14/2021 5:18 AM EST Narrative Resulting Agency Comment Spec In Lab Uday Alves MD HEMATOLOGY ORDERABLE S Performing Organization Address City/[facility]/ZIP Co de Phone Number [facility] [place] [address] * (ABNORMAL) Hemogram (11/14/2021 4:28 AM EST) White Blood Cell 13.5(H) 4.0 - 9.5 x10(3)/mc L [facility] Red Blood Cell 3.56(L) 4.00 - 5.21 x10(6)/mc L [facility] Hemoglobin 9.4(L) 11.7 - 15.5 g/dL [facility] Hematocrit 29.5(L) 35.7 - 45.8 % [facility] Mean Cell Volume 82.9 82.6 - 94.4 fL [facility] Mean Cell Hemoglobin 26.4(L) 27.1 - 32.0 pg [facility] Mean Cell Hemoglobin Concentration 31.9 31.7 - 35.0 g/dL [facility] Platelet 446(H) 145 - 357 x10(3)/mc L [facility] RDW Standard Deviation 50.4(H) 37.0 - 46.0 fL [facility] RDW coefficient of variation 17.3(H) 11.5 - 14.1 % [facility] Mean Platelet Volume 10.7 7.6 - 12.9 fL [facility] NRBC% auto 0.0 % [facility] NRBC Absolute 0.000 0.000 - 0.000 x10(3)/mc L [facility] Blood 11/14/2021 4:28 AM EST 11/14/2021 5:18 AM EST Narrative Resulting Agency Comment Spec In Lab Uday Alves MD HEMATOLOGY ORDERABLE S [facility] [place] [address] * Magnesium (11/14/2021 4:28 AM EST) Magnesium 0.80 0.69 - 1.07 mmol/L [facility] Blood 11/14/2021 4:28 AM EST 11/14/2021 5:18 AM EST Narrative Resulting Agency Comment Spec In Lab Neeraj Pompa MD CHEMISTRY ORDERABLES [facility] [place] [address] * (ABNORMAL) Basic Metabolic Panel (non-fasting) (11/14/2021 4:28 AM EST) Glucose 84 65 - 199 mg/dL [facility] Comment:Diabetes: >=200 mg/d L plus symptoms Blood Urea Nitrogen 27(H) 8 - 18 mg/dL [facility] Creatinine 0.92 0.70 - 1.20 mg/dL [facility] Sodium 137 135 - 145 mmol/L [facility] Potassium 4.3 3.5 - 5.0 mmol/L [facility] Comment: Please note: ??Patients with WBC >100,000 may have falsely elevated Potassium levels. ??For accurate Potassium quantification in these patients send serum separator tube (gold top) for subsequent determinations. ??Contact the Clinical Chemistry Laboratory if there are any questions. Chloride 106 98 - 107 mmol/L [facility] Carbon Dioxide 21(L) 22 - 31 mmol/L [facility] Anion Gap 10 5 - 15 mmol/L [facility] Calcium 8.5 8.5 - 10.5 mg/dL [facility] Est Glomerular Filtration Rate 80 >=60 mL/min/1. 73 m?? [facility] Comment: This patient? s estimated [...] In Lab Yohannes Dhillon MD CHEMISTRY ORDERABLES [facility] [place] [address] * XR Chest PA & Lateral (Generic) [...] first. Electronically signed by: Monie Becerril MD, [facility]([phone]), at 11/13/2021 8:08 AM Neeraj Pompa MD IMG DX ORDERABLES * (ABNORMAL) Differential, Automated (11/13/2021 4:30 AM EST) Neutrophil % 85.2 % [facility] Neutrophil Absolute 14.55(H) 1.70 - 6.10 x10(3)/mc L [facility] Lymph % 10.1 % [facility] Lymphocytes Abs 1.7 0.9 - 3.2 x10(3)/mc L [facility] Monocyte % 3.2 % [facility] Monocyte Abs 0.6 0.3 - 0.9 x10(3)/mc L [facility] Eos % 0.1 % [facility] Eosinophils Abs 0.0 0.0 - 0.4 x10(3)/mc L [facility] Basophil % 0.2 % [facility] Baso Absolute 0.0 0.0 - 0.1 x10(3)/[facility] Immature Gran % 1.20 % [facility] Comment: Immature granulocytes(IG's)percentage and absolute count will include metamyelocytes, myelocytes, and promyelocytes. Blood smears from CBCs yielding IG's will be scanned manually for concordance. If this scan disagrees with the automated IG or if promyelocytes are noted, a manual differential will be performed. Immature Gran Absolute 0.20(H) 0.00 - 0.04 x10(3)/[facility] Blood 11/13/2021 4:30 AM EST 11/13/2021 4:36 AM EST Narrative Resulting Agency Comment Spec In Lab Uday Alves MD HEMATOLOGY ORDERABLE S Performing Organization Address City/State/[facility] Co de Phone Number [facility] [place] [address] * (ABNORMAL) Hemogram (11/13/2021 4:30 AM EST) White Blood Cell 17.1(H) 4.0 - 9.5 x10(3)/[facility] Red Blood Cell 3.59(L) 4.00 - 5.21 x10(6)/[facility] Hemoglobin 9.5(L) 11.7 - 15.5 g/dL [facility] Hematocrit 29.3(L) 35.7 - 45.8 % [facility] Mean Cell Volume 81.6(L) 82.6 - 94.4 fL [facility] Mean Cell Hemoglobin 26.5(L) 27.1 - 32.0 pg [facility] Mean Cell Hemoglobin Concentration 32.4 31.7 - 35.0 g/dL [facility] Platelet 399(H) 145 - 357 x10(3)/[facility] RDW Standard Deviation 47.8(H) 37.0 - 46.0 fL [facility] RDW coefficient of variation 16.4(H) 11.5 - 14.1 % [facility] Mean Platelet Volume 10.3 7.6 - 12.9 fL [facility] NRBC% auto 0.0 % [facility] NRBC Absolute 0.000 0.000 - 0.000 x10(3)/mc L [facility] Blood 11/13/2021 4:30 AM EST 11/13/2021 4:36 AM EST Narrative Resulting Agency Comment Spec In Lab Uday Alves MD HEMATOLOGY ORDERABLE S Performing Organization Address City/[facility]/ZIP Co de Phone Number [facility] [place] [address] * Magnesium (11/13/2021 4:30 AM EST) Magnesium 0.84 0.69 - 1.07 mmol/L [facility] Blood 11/13/2021 4:30 AM EST 11/13/2021 4:36 AM EST Narrative Resulting Agency Comment Spec In Lab Neeraj Pompa MD CHEMISTRY ORDERABLES Performing Organization Address [facility]/ZIP Co de Phone Number [facility] [place] [address] * (ABNORMAL) Basic Metabolic Panel (non-fasting) (11/13/2021 4:30 AM EST) Glucose 150 65 - 199 mg/dL [facility] Comment:Diabetes: >=200 mg/d L plus symptoms Blood Urea Nitrogen 21(H) 8 - 18 mg/dL [facility] Creatinine 0.89 0.70 - 1.20 mg/dL [facility] Sodium 138 135 - 145 mmol/L [facility] Potassium 4.3 3.5 - 5.0 mmol/L [facility] Comment: Please note: ??Patients with WBC >100,000 may have falsely elevated Potassium levels. ??For accurate Potassium quantification in these patients send serum separator tube (gold top) for subsequent determinations. ??Contact the Clinical Chemistry Laboratory if there are any questions. Chloride 108(H) 98 - 107 mmol/L [facility] Carbon Dioxide 20(L) 22 - 31 mmol/L [facility] Anion Gap 10 5 - 15 mmol/L [facility] Calcium 8.7 8.5 - 10.5 mg/dL [facility] Est Glomerular Filtration Rate 83 >=60 mL/min/1. 73 m?? [facility] Comment: This patient? s estimated [...] Dhillon MD CHEMISTRY ORDERABLES Performing Organization Address City/State/[facility] Co de Phone Number [facility] [place] [address] * ELECTROPHYSIOLOGY PROCEDURE (11/12/2021 3:30 PM EST) Anatomical Region Laterality Modality Other Narrative 11/12/2021 3:13 PM EST Subcutaneous ICD Implantation, Intraoperative EPS, General Anesthesia Indications: Out of hospital ventricular fibrillation arrest Operators: Jolly Decker MD, ??[employer]. Procedure: The patient was brought to the [...] Fluoroscopy was used briefly to locate anatomic lbue for the lead position and to confirm [...] SQ electrode Model 3501 Bipolar Serial Number [id number] Implanted 11/12/21 Bipolar Subcutaneous ICD Lead Pulse generator: Data Maid S-ICD Pulse Generator Model A219 Serial Number [id number] Implanted 11/12/21 Location: [id number], 5th to 6th intercostal space Antibiotic: 2 grams cefazolin 1350 Incision time: 1359 Estimated blood loss : 20 cc No drains in situ Fluoroscopy time: 0.1 minute, DAP 0.3 I was the team primary care physician for the procedure, I was present for [...] your imaging first. ? Electronically signed by: Cyn Bhakta MD, [facility] ([phone]), at 11/12/2021 8:12 AM Narrative 11/12/2021 8:12 AM EST EXAMINATION: XR [...] requested your imaging first. Electronically signed by: Cyn Bhakta MD, [facility]([phone]), at 11/12/2021 8:12 AM Devin Ricci MD IMG DX ORDERABLES * (ABNORMAL) Differential, Automated (11/12/2021 4:48 AM EST) Neutrophil % 54.9 % [facility] Neutrophil Absolute 5.80 1.70 - 6.10 x10(3)/[facility] Lymph % 22.2 % [facility] Lymphocytes Abs 2.3 0.9 - 3.2 x10(3)/[facility] Monocyte % 11.1 % [facility] Monocyte Abs 1.2(H) 0.3 - 0.9 x10(3)/[facility] Eos % 9.8 % [facility] Eosinophils Abs 1.0(H) 0.0 - 0.4 x10(3)/[facility] Basophil % 0.9 % [facility] Baso Absolute 0.1 0.0 - 0.1 x10(3)/[facility] Immature Gran % 1.10 % [facility] Comment: Immature granulocytes(IG's)percentage and absolute count will include metamyelocytes, myelocytes, and promyelocytes. Blood smears from CBCs yielding IG's will be scanned manually for concordance. If this scan disagrees with the automated IG or if promyelocytes are noted, a manual differential will be performed. Immature Gran Absolute 0.12(H) 0.00 - 0.04 x10(3)/[facility] Blood 11/12/2021 4:48 AM EST 11/12/2021 5:22 AM EST Narrative Resulting Agency Comment Spec In Lab Uday Alves MD HEMATOLOGY ORDERABLE S [facility] [place] [address] * (ABNORMAL) Hemogram (11/12/2021 4:48 AM EST) White Blood Cell 10.6(H) 4.0 - 9.5 x10(3)/[facility] Red Blood Cell 3.70(L) 4.00 - 5.21 x10(6)/mc L [facility] Hemoglobin 9.7(L) 11.7 - 15.5 g/dL [facility] Hematocrit 30.2(L) 35.7 - 45.8 % [facility] Mean Cell Volume 81.6(L) 82.6 - 94.4 fL [facility] Mean Cell Hemoglobin 26.2(L) 27.1 - 32.0 pg [facility] Mean Cell Hemoglobin Concentration 32.1 31.7 - 35.0 g/dL [facility] Platelet 343 145 - 357 x10(3)/mc L [facility] RDW Standard Deviation 47.5(H) 37.0 - 46.0 [facility] RDW coefficient of variation 16.2(H) 11.5 - 14.1 % [facility] Mean Platelet Volume 10.6 7.6 - 12.9 [facility] NRBC% auto 0.0 % [facility] NRBC Absolute 0.000 0.000 - 0.000 x10(3)/mc L [facility] Blood 11/12/2021 4:48 AM EST 11/12/2021 5:22 AM EST Narrative Resulting Agency Comment Spec In Lab Uday Alves MD HEMATOLOGY ORDERABLE S [facility] [place] [address] * (ABNORMAL) Basic Metabolic Panel (non-fasting) (11/12/2021 4:48 AM EST) Glucose 89 65 - 199 mg/dL [facility] Comment:Diabetes: >=200 mg/d L plus symptoms Blood Urea Nitrogen 17 8 - 18 mg/dL [facility] Creatinine 0.87 0.70 - 1.20 mg/dL [facility] Sodium 140 135 - 145 mmol/L [facility] Potassium 3.5 3.5 - 5.0 mmol/L [facility] Comment: Please note: ??Patients with WBC >100,000 may have falsely elevated Potassium levels. ??For accurate Potassium quantification in these patients send serum separator tube (gold top) for subsequent determinations. ??Contact the Clinical Chemistry Laboratory if there are any questions. Chloride 105 98 - 107 mmol/L [facility] Carbon Dioxide 23 22 - 31 mmol/L [facility] Anion Gap 12 5 - 15 mmol/L [facility] Calcium 8.4(L) 8.5 - 10.5 mg/dL [facility] Est Glomerular Filtration Rate 85 >=60 mL/min/1. 73 m?? [facility] Comment: This patient? s estimated [...] In Lab Yohannes Dhillon MD CHEMISTRY ORDERABLES [facility] [place] [address] * Magnesium (11/11/2021 6:41 PM EST) Magnesium 0.83 0.69 - 1.07 mmol/L [facility] Blood 11/11/2021 6:41 PM EST 11/11/2021 6:53 PM EST Narrative Resulting Agency Comment Spec In Lab Valorie Obrien MD CHEMISTRY ORDERABLES [facility] [place] [address] * Magnesium (11/11/2021 4:42 AM EST) [facility] Magnesium 0.93 0.69 - 1.07 mmol/L [facility] Blood Venous Draw / Unknown 11/11/2021 4:42 AM EST 11/11/2021 5:02 AM EST Narrative Resulting Agency Comment Spec In Lab Prashant Johnson MD CHEMISTRY ORDERABLES Performing Organization Address City/[facility]/ZIP Co de Phone Number [facility] [place] [address] * (ABNORMAL) Differential, Automated (11/11/2021 4:42 AM EST) [facility] Neutrophil % 47.9 % [facility] Neutrophil Absolute 5.49 1.70 - 6.10 x10(3)/mc L [facility] Lymph % 27.9 % [facility] Lymphocytes Abs 3.2 0.9 - 3.2 x10(3)/mc L [facility] Monocyte % 10.9 % [facility] Monocyte Abs 1.2(H) 0.3 - 0.9 x10(3)/mc L [facility] Eos % 11.6 % [facility] Eosinophils Abs 1.3(H) 0.0 - 0.4 x10(3)/mc L [facility] Basophil % 0.8 % [facility] Baso Absolute 0.1 0.0 - 0.1 x10(3)/mc L [facility] Immature Gran % 0.90 % [facility] Comment: Immature granulocytes(IG's)percentage and absolute count will include metamyelocytes, myelocytes, and promyelocytes. Blood smears from CBCs yielding IG's will be scanned manually for concordance. If this scan disagrees with the automated IG or if promyelocytes are noted, a manual differential will be performed. Immature Gran Absolute 0.10(H) 0.00 - 0.04 x10(3)/mc L [facility] Blood 11/11/2021 4:42 AM EST 11/11/2021 5:01 AM EST Narrative Resulting Agency Comment Spec In Lab Uday Alves MD HEMATOLOGY ORDERABLE S [facility] [place] [address] * (ABNORMAL) Hemogram (11/11/2021 4:42 AM EST) White Blood Cell 11.5(H) 4.0 - 9.5 x10(3)/mc L [facility] Red Blood Cell 3.96(L) 4.00 - 5.21 x10(6)/[facility] Hemoglobin 10.5(L) 11.7 - 15.5 g/dL [facility] Hematocrit 32.0(L) 35.7 - 45.8 % [facility] Mean Cell Volume 80.8(L) 82.6 - 94.4 fL [facility] Mean Cell Hemoglobin 26.5(L) 27.1 - 32.0 pg [facility] Mean Cell Hemoglobin Concentration 32.8 31.7 - 35.0 g/dL [facility] Platelet 331 145 - 357 x10(3)/mc L [facility] RDW Standard Deviation 47.1(H) 37.0 - 46.0 fL [facility] RDW coefficient of variation 16.3(H) 11.5 - 14.1 % [facility] Mean Platelet Volume 10.3 7.6 - 12.9 fL [facility] NRBC% auto 0.0 % [facility] NRBC Absolute 0.000 0.000 - 0.000 x10(3)/ L [facility] Blood 11/11/2021 4:42 AM EST 11/11/2021 5:01 AM EST Narrative Resulting Agency Comment Spec In Lab Uday Alves MD HEMATOLOGY ORDERABLE S [facility] [place] [address] * (ABNORMAL) Basic Metabolic Panel (non-fasting) (11/11/2021 4:42 AM EST) Glucose 99 65 - 199 mg/dL [facility] Comment:Diabetes: >=200 mg/d L plus symptoms Blood Urea Nitrogen 23(H) 8 - 18 mg/dL [facility] Creatinine 0.92 0.70 - 1.20 mg/dL [facility] Sodium 141 135 - 145 mmol/L [facility] Potassium 3.4(L) 3.5 - 5.0 mmol/L [facility] Comment: Please note: ??Patients with WBC >100,000 may have falsely elevated Potassium levels. ??For accurate Potassium quantification in these patients send serum separator tube (gold top) for subsequent determinations. ??Contact the Clinical Chemistry Laboratory if there are any questions. Chloride 104 98 - 107 mmol/L [facility] Carbon Dioxide 21(L) 22 - 31 mmol/L [facility] Anion Gap 16(H) 5 - 15 mmol/L [facility] Calcium 8.5 8.5 - 10.5 mg/dL [facility] Est Glomerular Filtration Rate 80 >=60 mL/min/1. 73 m?? [facility] Comment: This patient? s estimated [...] Dhillon MD CHEMISTRY ORDERABLES Performing Organization Address [facility] Co de Phone Number [facility] [place] [address] * Magnesium (11/10/2021 6:07 PM EST) Pathologist [facility] Magnesium 0.83 0.69 - 1.07 mmol/L [facility] Blood 11/10/2021 6:07 PM EST 11/10/2021 6:17 PM EST Narrative Resulting Agency Comment Spec In Lab Valorie Obrien MD CHEMISTRY ORDERABLES Performing Organization Address [facility] Co de Phone Number [facility] [place] [address] * Magnesium (11/10/2021 10:06 AM EST) Pathologist [facility] Magnesium 0.82 0.69 - 1.07 mmol/L [facility] Blood 11/10/2021 10:0 6 AM EST 11/10/2021 10:39 AM EST Narrative Resulting Agency Comment Spec In Lab Valorie Obrien MD CHEMISTRY ORDERABLES Performing Organization Address [facility] Co de Phone Number [facility] [place] [address] * EKG 12 Lead (11/10/2021 7:54 AM EST) Ventricular rate 80 BPM MUSE SYSTEM Atrial Rate 80 BPM MUSE SYSTEM P-R Interval 130 ms MUSE SYSTEM QRS Duration 86 ms MUSE SYSTEM Q-T Interval 418 ms MUSE SYSTEM QTC Calculated (Bezet) 482 ms MUSE SYSTEM Calculated P [place] 48 degrees MUSE SYSTEM Calculated R [place] 31 degrees MUSE SYSTEM Calculated T [place] 93 degrees MUSE SYSTEM INTERPRETATION Normal sinus rhythm Nonspecific ST and T wave abnormality Prolonged QT Abnormal ECG When compared with ECG of 05-NOV-2021 16:01, Vent. rate has increased BY ??[address] now depressed in Lateral leads T wave inversion now evident in Anterior leads Confirmed by MD Vasile, Jonathan ([id number]) on 11/12/2021 10:05:57 AM MUSE SYSTEM 11/10/2021 7:54 AM EST 11/12/2021 10:05 AM EST Valorie Obrien MD ECG ORDERABLES Performing Organization Address City/[facility]/ZIP Co de Phone Number MUSE SYSTEM * Magnesium (11/09/2021 6:24 PM EST) Pathologist [facility] Magnesium 0.98 0.69 - 1.07 mmol/L [facility] Blood 11/09/2021 6:24 PM EST 11/09/2021 6:29 PM EST Narrative Resulting Agency Comment Spec In Lab Valorie Obrien MD CHEMISTRY ORDERABLES Performing Organization Address [facility] Co de Phone Number [facility] [place] [address] * Scan, Peripheral Blood (11/09/2021 12:40 AM EST) Pathologist [facility] Plat estimate Normal [facility] RBC Morphology Abnormal [facility] Hypochromia Slight [facility] Ovalocytes 1-5 /HPF [facility] Vacuolated Neut Present [facility] Blood 11/09/2021 12:4 0 AM EST 11/09/2021 12:45 AM EST Narrative Resulting Agency Comment Spec In Lab Uday Alves MD HEMATOLOGY ORDERABLE S Performing Organization Address [facility]/ZIP Co de Phone Number [facility] [place] [address] * (ABNORMAL) Differential, Automated (11/09/2021 12:40 AM EST) Pathologist [facility] Neutrophil % 79.7 % [facility] Neutrophil Absolute 13.19(H) 1.70 - 6.10 x10(3)/ L [facility] Lymph % 8.6 % [facility] Lymphocytes Abs 1.4 0.9 - 3.2 x10(3)/ L [facility] Monocyte % 6.4 % [facility] Monocyte Abs 1.1(H) 0.3 - 0.9 x10(3)/ L [facility] Eos % 3.9 % [facility] Eosinophils Abs 0.6(H) 0.0 - 0.4 x10(3)/[facility] Basophil % 0.4 % [facility] Baso Absolute 0.1 0.0 - 0.1 x10(3)/[facility] Immature Gran % 1.00 % [facility] Comment: Immature granulocytes(IG's)percentage and absolute count will include metamyelocytes, myelocytes, and promyelocytes. Blood smears from CBCs yielding IG's will be scanned manually for concordance. If this scan disagrees with the automated IG or if promyelocytes are noted, a manual differential will be performed. Immature Gran Absolute 0.16(H) 0.00 - 0.04 x10(3)/ L [facility] Blood 11/09/2021 12:4 0 AM EST 11/09/2021 12:45 AM EST Narrative Resulting Agency Comment Spec In Lab Uday Alves MD HEMATOLOGY ORDERABLE S [facility] [place] [address] * (ABNORMAL) Hemogram (11/09/2021 12:40 AM EST) Pathologist [facility] White Blood Cell 16.5(H) 4.0 - 9.5 x10(3)/ L [facility] Red Blood Cell 3.97(L) 4.00 - 5.21 x10(6)/mc L [facility] Hemoglobin 10.5(L) 11.7 - 15.5 g/dL [facility] Hematocrit 32.0(L) 35.7 - 45.8 % [facility] Mean Cell Volume 80.6(L) 82.6 - 94.4 fL [facility] Mean Cell Hemoglobin 26.4(L) 27.1 - 32.0 pg [facility] Mean Cell Hemoglobin Concentration 32.8 31.7 - 35.0 g/dL [facility] Platelet 237 145 - 357 x10(3)/mc L [facility] RDW Standard Deviation 48.1(H) 37.0 - 46.0 [facility] RDW coefficient of variation 16.6(H) 11.5 - 14.1 % [facility] Mean Platelet Volume 10.5 7.6 - 12.9 [facility] NRBC% auto 0.0 % [facility] NRBC Absolute 0.000 0.000 - 0.000 x10(3)/mc L [facility] Blood 11/09/2021 12:4 0 AM EST 11/09/2021 12:45 AM EST Narrative Resulting Agency Comment Spec In Lab Uday Alves MD HEMATOLOGY ORDERABLE S Performing Organization Address City/State/[facility] Co de Phone Number [facility] [place] [address] * (ABNORMAL) Basic Metabolic Panel (non-fasting) (11/09/2021 12:40 AM EST) Glucose 121 65 - 199 mg/dL [facility] Comment:Diabetes: >=200 mg/d L plus symptoms Blood Urea Nitrogen 22(H) 8 - 18 mg/dL [facility] Comment:result rechecked-ng Creatinine 0.84 0.70 - 1.20 mg/dL [facility] Sodium 138 135 - 145 mmol/L [facility] Potassium 3.5 3.5 - 5.0 mmol/L [facility] Comment: Please note: ??Patients with WBC >100,000 may have falsely elevated Potassium levels. ??For accurate Potassium quantification in these patients send serum separator tube (gold top) for subsequent determinations. ??Contact the Clinical Chemistry Laboratory if there are any questions. Chloride 103 98 - 107 mmol/L [facility] Carbon Dioxide 24 22 - 31 mmol/L [facility] Anion Gap 11 5 - 15 mmol/L [facility] Calcium 9.0 8.5 - 10.5 mg/dL [facility] Est Glomerular Filtration Rate 89 >=60 mL/min/1. 73 m?? [facility] Comment: This patient? s estimated [...] In Lab Yohannes Dhillon MD CHEMISTRY ORDERABLES [facility] [place] [address] * Magnesium (11/09/2021 12:40 AM EST) Magnesium 0.97 0.69 - 1.07 mmol/L [facility] Blood 11/09/2021 12:4 0 AM EST 11/09/2021 12:45 AM EST Narrative Resulting Agency Comment Spec In Lab Valorie Obrien MD CHEMISTRY ORDERABLES Performing Organization Address City/[facility] Co de Phone Number [facility] [place] [address] * Magnesium (11/08/2021 7:05 PM EST) Magnesium 0.92 0.69 - 1.07 mmol/L [facility] Blood 11/08/2021 7:05 PM EST 11/08/2021 7:15 PM EST Narrative Resulting Agency Comment Spec In Lab Valorie Obrien MD CHEMISTRY ORDERABLES Performing Organization Address [facility] de Phone Number [facility] [place] [address] * 24 Hour EEG, Portable (11/08/2021 1:47 PM EST) Narrative Darien Zavala MD - 11/08/2021 1:47 PM EST Leonora Mandujano MD ? 11/08/2021 ??2:13 PM [facility] Department of Neurology Inpatient Continuous EEG Report Name of the Patient: ??Aniya Lundy Date of : ?1985 Date of Service: ?11/08/2021 Referring physician: ?Jhony Regan, BRIEF HISTORY: Aniya Lundy is a 36 [...] 1 mg ??1 mg Intravenous Q4H PRN Richard Asher MD ?? 1 mg at 11/05/21 [...] mg ??0.4 mg Sublingual Q5 Min PRN Uday Alves MD ? busPIRone (Buspar) tablet 30 mg ??30 mg Oral Q8H PRN Uday Alves MD ? white petrolatum-mineral oiL (Eucerin) cream ?? Topical (Top) Q8H SONALI Uday Alves MD ?? Given at 11/06/21 2200 ? ? lidocaine (pf) (Xylocaine) (4 mg/mL) in dextrose 5% 500 mL infusion ?Continuous PRN Jama Melo MD 15 mL/hr at 11/05/21 0500 Rate Verify at 11/05/21 0500 ? ? nitroGLYcerin (200 mcg/mL) in dextrose 5% 250 mL infusion ? Continuous PRN Jama Melo MD ?? Stopped at 11/04/212115 ? ? sodium chloride 0.9% infusion ?Continuous PRN Jama Melo MD ?? Stopped at 11/04/212199 ? ? iohexoL (Omnipaque) (350 mg/mL) solution ?Once PRN Jama Melo MD ?? 12 mL at 11/04/211815 ? ? niCARdipine (Cardene) (0.2 mg/mL) in sodium chloride 200 mL infusion ??5 mg/hr Intravenous Continuous Fausto Earl MD ?? Held at 11/08/21 1222 METHODS: [...] EKG. Video was recorded during the session. FIRER MARINE'S REPORT: Performed by: Leon Clark At the onset of the recording the patient was Intubated. Movement and other artifact was not significant. Comments:None [facility] Department of Neurology Critical Care Continuous EEG Report Patient: Aniya Lundy, [id number] Date: 11/08/21 Start Time: 05:00 11/07/2021 End [...] 10:10 AM EST) MRSA PCR Negative Negative [facility] MRSA (Interp) Negative for methicillin-resis tant Staphylococcus aureus (MRSA) This test was performed using the GeneXpert?? Dx System and the Xpert MRSA Assay. The MRSA target DNA was not detected. The sample processing control and probe check were valid. The performance of this test was determined by the [facility]. It has been cleared by the U.S. Food and Drug Administration for clinical use. [facility] Comment: [VERIFIED DATE]11.09.21 Verified By:Dudley Cook (Electronic Signature) Nasopharyngeal Swab 11/08/19 10:10 AM EST 11/08/2021 1:07 PM EST Narrative Resulting Agency Comment Spec In Lab Valorie Obrien MD MOLECULAR ORDERABLES [facility] [place] [address] * Magnesium (11/08/2021 4:30 AM EST) [facility] Magnesium 0.85 0.69 - 1.07 mmol/L [facility] Blood Venous Draw / Unknown 11/08/2021 4:30 AM EST 11/08/2021 4:48 AM EST Narrative Resulting Agency Comment Spec In Lab Prashant Johnson MD CHEMISTRY ORDERABLES Performing Organization Address City/[facility]/ZIP Co de Phone Number [facility] [place] [address] * Scan, Peripheral Blood (11/08/2021 4:30 AM EST) [facility] Plat estimate Normal [facility] RBC Morphology Abnormal [facility] Hypochromia Slight [facility] Ovalocytes 1-5 /HPF [facility] Blood 11/08/2021 4:30 AM EST 11/08/2021 4:47 AM EST Narrative Resulting Agency Comment Spec In Lab Uday Alves MD HEMATOLOGY ORDERABLE S Performing Organization Address City/[facility]/ZIP Co de Phone Number [facility] [place] [address] * (ABNORMAL) Differential, Automated (11/08/2021 4:30 AM EST) [facility] Neutrophil % 86.8 % [facility] Neutrophil Absolute 15.88(H) 1.70 - 6.10 x10(3)/mc L [facility] Lymph % 5.4 % [facility] Lymphocytes Abs 1.0 0.9 - 3.2 x10(3)/mc L [facility] Monocyte % 5.9 % [facility] Monocyte Abs 1.1(H) 0.3 - 0.9 x10(3)/mc L [facility] Eos % 0.7 % [facility] Eosinophils Abs 0.1 0.0 - 0.4 x10(3)/mc L [facility] Basophil % 0.3 % [facility] Baso Absolute 0.0 0.0 - 0.1 x10(3)/ L [facility] Immature Gran % 0.90 % [facility] Comment: Immature granulocytes(IG's)percentage and absolute count will include metamyelocytes, myelocytes, and promyelocytes. Blood smears from CBCs yielding IG's will be scanned manually for concordance. If this scan disagrees with the automated IG or if promyelocytes are noted, a manual differential will be performed. Immature Gran Absolute 0.16(H) 0.00 - 0.04 x10(3)/[facility] Blood 11/08/2021 4:30 AM EST 11/08/2021 4:47 AM EST Narrative Resulting Agency Comment Spec In Lab Uday Alves MD HEMATOLOGY ORDERABLE S Performing Organization Address City/State/[facility] Co de Phone Number [facility] [place] [address] * (ABNORMAL) Hemogram (11/08/2021 4:30 AM EST) White Blood Cell 18.3(H) 4.0 - 9.5 x10(3)/[facility] LABORAT[facility] Red Blood Cell 3.30(L) 4.00 - 5.21 x10(6)/ L [facility] Hemoglobin 8.6(L) 11.7 - 15.5 g/dL [facility] Hematocrit 27.3(L) 35.7 - 45.8 % [facility] Mean Cell Volume 82.7 82.6 - 94.4 fL [facility] Mean Cell Hemoglobin 26.1(L) 27.1 - 32.0 pg [facility] Mean Cell Hemoglobin Concentration 31.5(L) 31.7 - 35.0 g/dL [facility] Platelet 154 145 - 357 x10(3)/[facility] LABORATORY RDW Standard Deviation 51.0(H) 37.0 - 46.0 fL [facility] RDW coefficient of variation 16.8(H) 11.5 - 14.1 % [facility] Mean Platelet Volume 11.5 7.6 - 12.9 fL [facility] NRBC% auto 0.0 % [facility] NRBC Absolute 0.000 0.000 - 0.000 x10(3)/mc L [facility] Blood 11/08/2021 4:30 AM EST 11/08/2021 4:47 AM EST Narrative Resulting Agency Comment Spec In Lab Uday Alves MD HEMATOLOGY ORDERABLE S [facility] [place] [address] * (ABNORMAL) Basic Metabolic Panel (non-fasting) (11/08/2021 4:30 AM EST) Glucose 117 65 - 199 mg/dL [facility] Comment:Diabetes: >=200 mg/d L plus symptoms Blood Urea Nitrogen 12 8 - 18 mg/dL [facility] Creatinine 1.00 0.70 - 1.20 mg/dL [facility] Sodium 141 135 - 145 mmol/L [facility] Potassium 4.0 3.5 - 5.0 mmol/L [facility] Comment: result rechecked- Please note: ??Patients with WBC >100,000 may have falsely elevated Potassium levels. ??For accurate Potassium quantification in these patients send serum separator tube (gold top) for subsequent determinations. ??Contact the Clinical Chemistry Laboratory if there are any questions. Chloride 108(H) 98 - 107 mmol/L [facility] Carbon Dioxide 23 22 - 31 mmol/L [facility] Anion Gap 10 5 - 15 mmol/L [facility] Calcium 8.3(L) 8.5 - 10.5 mg/dL [facility] Est Glomerular Filtration Rate 72 >=60 mL/min/1. 73 m?? [facility] Comment: This patient? s estimated [...] Dhillon MD CHEMISTRY ORDERABLES Performing Organization Address [facility] Co de Phone Number [facility] [place] [address] * Vancomycin, trough (11/07/2021 9:29 PM EST) Vancomycin, Trough 11.1 mg/L [facility] Comment: Therapeutic range for complicated infections [...] Spann MD CHEMISTRY ORDERABLES Performing Organization Address [facility] Co de Phone Number [facility] [place] [address] * XR Abdomen 1 view (Generic) (11/07/2021 [...] first. ? Electronically signed by: Chandrakant Pena MD, [facility] ([phone]), at 11/07/2021 11:43 AM Narrative 11/07/2021 11:43 AM EST EXAMINATION: XR [...] imaging first. Electronically signed by: Chandrakant Pena MD, [facility]([phone]), at 11/07/2021 11:43 AM Valorie Obrien MD IMG DX ORDERABLES * (ABNORMAL) BLOOD GAS 2 ARTERIAL (11/07/2021 9:40 AM EST) pH, Arterial 7.34(L) 7.35 - 7.45 [facility] PCO2, Arterial 37 35 - 45 mmHg [facility] PO2, Arterial 88 85 - 104 mmHg [facility] Bicarbonate, Arterial 19.2(L) 20.0 - 26.0 mmol/L [facility] Base Excess, Arterial -6.7(L) -3.0 - 3.0 mmol/L [facility] Hgb Blood Gas 8.4(L) 11.7 - 15.5 g/dL [facility] Oxyhemoglobin, Arterial 94.8 94.0 - 97.0 % [facility] Carboxyhemoglob in, Arterial 0.1 % [facility] Comment: Nonsmokers: 0.5-1.5% COHB Smokers: Variable, but usually less than 10% Toxic: 20-30% COHB Lethal: Greater than 60% COHB Methemoglobin, Arterial 0.9 <=1.5 % [facility] Na Whole Blood 134(L) 135 - 145 mmol/L [facility] K Whole Blood 4.3 3.5 - 5.0 mmol/L [facility] Comment: Please note: Patients with WBC >100,000 may have falsely elevated Potassium levels. Contact the Clinical Chemistry Laboratory if there are any questions. ICa Whole Blood 1.11(L) 1.15 - 1.33 mmol/L [facility] Comment: Note: ??Total bilirubin higher than 20 mg/dL may lead to falsely low ionized calcium. CL Whole Blood 111(H) 98 - 107 mmol/L [facility] Gluc Whole Bld 90 65 - 199 mg/dL [facility] Comment:Diabetes: >=200 mg/d L plus symptoms. Lactate WB 0.6 0.5 - 2.2 mmol/L [facility] FIO2 Art 40 % [facility] PF Ratio Art 220 [facility] Blood 11/07/2021 9:40 AM EST 11/07/2021 9:40 AM EST Valorie Obrien MD POINT OF CARE TEST O RDERABLES [facility] [place] [address] * XR Chest One View (11/07/2021 9:16 [...] ? Electronically signed by: Dinh Becerril MD, [facility] ([phone]), at 11/07/2021 9:33 AM Narrative 11/07/2021 9:33 AM EST EXAMINATION: XR CHEST ONE VIEW CLINICAL HISTORY: Respiratory Failure TECHNIQUE: 1 view of the chest COMPARISON: 11/06/2021 FINDINGS: Endotracheal tube 3.7 cm above the salomón. Beulah-Jazmin catheter has been removed, right IJ sheath [...] Endotracheal tube 3.7 cm above the salomón. Beulah-Jazmin catheter has beenremoved, right IJ sheath remains. [...] center director that requested your imaging first. Valorie Obrien MD IMG DX ORDERABLES * Vancomycin, trough (11/07/2021 8:00 AM EST) Vancomycin, Trough 5.1 mg/L [facility] Comment: Therapeutic range for complicated [...] Spann MD CHEMISTRY ORDERABLES Performing Organization Address [facility]/ZIP Co de Phone Number [facility] [place] [address] * Magnesium (11/07/2021 8:00 AM EST) Magnesium 0.86 0.69 - 1.07 mmol/L [facility] Blood 11/07/2021 8:00 AM EST 11/07/2021 8:08 AM EST Narrative Resulting Agency Comment Spec In Lab Valorie Obrien MD CHEMISTRY ORDERABLES Performing Organization Address [facility] Co de Phone Number [facility] [place] [address] * (ABNORMAL) BLOOD GAS 2 ARTERIAL (11/07/2021 6:30 AM EST) pH, Arterial 7.23(Criti cindy) 7.35 - 7.45 [facility] Comment:Not noted by instrum ent nut sheller machine operator. PCO2, Arterial 46(H) 35 - 45 mmHg [facility] PO2, Arterial 90 85 - 104 mmHg [facility] Bicarbonate, Arterial 18.6(L) 20.0 - 26.0 mmol/L [facility] Base Excess, Arterial -9.0(L) -3.0 - 3.0 mmol/L [facility] Hgb Blood Gas 8.6(L) 11.7 - 15.5 g/dL [facility] Oxyhemoglobin, Arterial 94.6 94.0 - 97.0 % [facility] Carboxyhemoglob in, Arterial 0.0 % [facility] Comment: Nonsmokers: 0.5-1.5% COHB Smokers: Variable, but usually less than 10% Toxic: 20-30% COHB Lethal: Greater than 60% COHB Methemoglobin, Arterial 0.9 <=1.5 % [facility] Na Whole Blood 135 135 - 145 mmol/L [facility] K Whole Blood 4.7 3.5 - 5.0 mmol/L [facility] Comment: Please note: Patients with WBC >100,000 may have falsely elevated Potassium levels. Contact the Clinical Chemistry Laboratory if there are any questions. ICa Whole Blood 1.12(L) 1.15 - 1.33 mmol/L [facility] Comment: Note: ??Total bilirubin higher than 20 mg/dL may lead to falsely low ionized calcium. CL Whole Blood 110(H) 98 - 107 mmol/L [facility] Gluc Whole Bld 103 65 - 199 mg/dL [facility] Comment:Diabetes: >=200 mg/d L plus symptoms. Lactate WB 0.4(L) 0.5 - 2.2 mmol/L [facility] FIO2 Art 50 % [facility] PF Ratio Art 180 [facility] Blood 11/07/2021 6:30 AM EST 11/07/2021 6:30 AM EST Valorie Obrien MD POINT OF CARE TEST O RDERABETI [facility] [place] [address] * (ABNORMAL) BLOOD GAS 2 ARTERIAL (11/07/2021 2:07 AM EST) pH, Arterial 7.25(Criti cindy) 7.35 - 7.45 [facility] Comment:Noted by instrument technician. PCO2, Arterial 40 35 - 45 mmHg [facility] PO2, Arterial 117(H) 85 - 104 mmHg [facility] Bicarbonate, Arterial 17.0(L) 20.0 - 26.0 mmol/L [facility] Base Excess, Arterial -10.3(L) -3.0 - 3.0 mmol/L [facility] Hgb Blood Gas 8.6(L) 11.7 - 15.5 g/dL [facility] Oxyhemoglobin, Arterial 96.3 94.0 - 97.0 % [facility] Carboxyhemoglob in, Arterial 0.3 % [facility] Comment: Nonsmokers: 0.5-1.5% COHB Smokers: Variable, but usually less than 10% Toxic: 20-30% COHB Lethal: Greater than 60% COHB Methemoglobin, Arterial 0.9 <=1.5 % [facility] Na Whole Blood 132(L) 135 - 145 mmol/L [facility] K Whole Blood 4.6 3.5 - 5.0 mmol/L [facility] Comment: Please note: Patients with WBC >100,000 may have falsely elevated Potassium levels. Contact the Clinical Chemistry Laboratory if there are any questions. ICa Whole Blood 1.12(L) 1.15 - 1.33 mmol/L [facility] Comment: Note: ??Total bilirubin higher than 20 mg/dL may lead to falsely low ionized calcium. CL Whole Blood 109(H) 98 - 107 mmol/L [facility] Gluc Whole Bld 105 65 - 199 mg/dL [facility] Comment:Diabetes: >=200 mg/d L plus symptoms. Lactate WB 0.5 0.5 - 2.2 mmol/L [facility] FIO2 Art 70 % [facility] PF Ratio Art 167 [facility] Blood 11/07/2021 2:07 AM EST 11/07/2021 2:07 AM EST Valorie Obrien MD POINT OF CARE TEST O RDERABLES [facility] [place] [address] * Scan, Peripheral Blood (11/07/2021 12:30 AM EST) Pathologist [facility] estimate Decreased [facility] RBC Morphology Abnormal [facility] Hypochromia Slight [facility] Ovalocytes 1-5 /HPF [facility] Stippled RBC Present >1/HPF [facility] Plat, Giant Less than 1 /HPF [facility] Blood 11/07/2021 12:3 0 AM EST 11/07/2021 1:56 AM EST Narrative Resulting Agency Comment Spec In Lab Uday Alves MD HEMATOLOGY ORDERABLE S [facility] [place] [id number] * (ABNORMAL) Differential, Automated (11/07/2021 12:30 AM EST) [facility] Neutrophil % 87.9 % [facility] Neutrophil Absolute 18.75(H) 1.70 - 6.10 x10(3)/mc L [facility] Lymph % 5.4 % [facility] Lymphocytes Abs 1.2 0.9 - 3.2 x10(3)/mc L [facility] Monocyte % 5.0 % [facility] Monocyte Abs 1.1(H) 0.3 - 0.9 x10(3)/mc L [facility] Eos % 0.4 % [facility] Eosinophils Abs 0.1 0.0 - 0.4 x10(3)/mc L [facility] Basophil % 0.2 % [facility] Baso Absolute 0.0 0.0 - 0.1 [...] Absolute 0.24(H) 0.00 - 0.04 x10(3)/mc L [facility] Blood 11/07/2021 12:3 0 AM EST 11/07/2021 1:56 AM EST Narrative Resulting Agency Comment Spec In Lab Uday Alves MD HEMATOLOGY ORDERABLE S [facility] [place] [address] * (ABNORMAL) Hemogram (11/07/2021 12:30 AM EST) White Blood Cell 21.4(H) 4.0 - 9.5 x10(3)/mc L [facility] Red Blood Cell 2.94(L) 4.00 - 5.21 x10(6)/mc L [facility] Hemoglobin 8.0(L) 11.7 - 15.5 g/dL [facility] Hematocrit 25.3(L) 35.7 - 45.8 % [facility] Mean Cell Volume 86.1 82.6 - 94.4 fL [facility] Mean Cell Hemoglobin 27.2 27.1 - 32.0 pg [facility] Mean Cell Hemoglobin Concentration 31.6(L) 31.7 - 35.0 g/dL [facility] Platelet 132(L) 145 - 357 x10(3)/mc L [facility] RDW Standard Deviation 53.4(H) 37.0 - 46.0 fL [facility] RDW coefficient of variation 17.1(H) 11.5 - 14.1 % [facility] Mean Platelet Volume 12.2 7.6 - 12.9 fL [facility] NRBC% auto 0.0 % [facility] NRBC Absolute 0.000 0.000 - 0.000 x10(3)/mc L [facility] Blood 11/07/2021 12:3 0 AM EST 11/07/2021 1:56 AM EST Narrative Resulting Agency Comment Spec In Lab Uday Alves MD HEMATOLOGY ORDERABLE S [facility] [place] [address] * (ABNORMAL) Basic Metabolic Panel (non-fasting) (11/07/2021 12:30 AM EST) Glucose Not Perf 65 - 199 [facility] Comment: sample improperly processed Sample too old to perform test. Diabetes: >=200 mg/dL plus symptoms Blood Urea Nitrogen 14 8 - 18 mg/dL [facility] Creatinine 1.55(H) 0.70 - 1.20 mg/dL [facility] Sodium 139 135 - 145 mmol/L [facility] Potassium 5.2(H) 3.5 - 5.0 mmol/L [facility] Comment: Please note: ??Patients with WBC >100,000 may have falsely elevated Potassium levels. ??For accurate Potassium quantification in these patients send serum separator tube (gold top) for subsequent determinations. ??Contact the Clinical Chemistry Laboratory if there are any questions. Chloride 111(H) 98 - 107 mmol/L [facility] Carbon Dioxide 18(L) 22 - 31 mmol/L [facility] Anion Gap 10 5 - 15 mmol/L [facility] Calcium 7.6(L) 8.5 - 10.5 mg/dL [facility] Est Glomerular Filtration Rate 42(L) >=60 mL/min/1. 73 m?? [facility] Comment: This patient? s estimated [...] In Lab Yohannes Dhillon MD CHEMISTRY ORDERABLES [facility] [place] [address] * (ABNORMAL) BLOOD GAS 2 ARTERIAL (11/06/2021 8:44 PM EST) pH, Arterial 7.24(Criti cindy) 7.35 - 7.45 [facility] Comment:Noted by instrument technician. PCO2, Arterial 42 35 - 45 mmHg [facility] PO2, Arterial 80(L) 85 - 104 mmHg [facility] Bicarbonate, Arterial 17.6(L) 20.0 - 26.0 mmol/L [facility] Base Excess, Arterial -9.7(L) -3.0 - 3.0 mmol/L [facility] Hgb Blood Gas 9.1(L) 11.7 - 15.5 g/dL [facility] Oxyhemoglobin, Arterial 93.2(L) 94.0 - 97.0 % [facility] Carboxyhemoglob in, Arterial 0.3 % [facility] Comment: Nonsmokers: 0.5-1.5% COHB Smokers: Variable, but usually less than 10% Toxic: 20-30% COHB Lethal: Greater than 60% COHB Methemoglobin, Arterial 0.8 <=1.5 % [facility] Na Whole Blood 131(L) 135 - 145 mmol/L [facility] K Whole Blood 4.6 3.5 - 5.0 mmol/L [facility] Comment: Please note: Patients with WBC >100,000 may have falsely elevated Potassium levels. Contact the Clinical Chemistry Laboratory if there are any questions. ICa Whole Blood 1.13(L) 1.15 - 1.33 mmol/L [facility] Comment: Note: ??Total bilirubin higher than 20 mg/dL may lead to falsely low ionized calcium. CL Whole Blood 108(H) 98 - 107 mmol/L [facility] Gluc Whole Bld 109 65 - 199 mg/dL [facility] Comment:Diabetes: >=200 mg/d L plus symptoms. Lactate WB 0.9 0.5 - 2.2 mmol/L [facility] FIO2 Art 80 % [facility] PF Ratio Art 100 [facility] Blood 11/06/2021 8:44 PM EST 11/06/2021 8:44 PM EST Valorie Obrien MD POINT OF CARE TEST O RDERABLES Performing Organization Address [facility] Co de Phone Number [facility] [place] [address] * Magnesium (11/06/2021 8:30 PM EST) Magnesium 0.80 0.69 - 1.07 mmol/L [facility] Blood 11/06/2021 8:30 PM EST 11/06/2021 8:44 PM EST Narrative Resulting Agency Comment Spec In Lab Valorie Obrien MD CHEMISTRY ORDERABLES Performing Organization Address [facility] Co de Phone Number [facility] [place] [address] * Blood culture (11/06/2021 8:00 PM EST) Blood Culture No growth at 5 days. [facility] Blood STRUCTURE OF LEFT HAND / Unknown 11/06/2021 8:00 PM EST 11/06/2021 8:40 PM EST Narrative Resulting Agency Comment Spec In Lab Valorie Obrien MD MICROBIOLOGY - BLOOD ORDERABLES Performing Organization Address [facility] Co de Phone Number [facility] [place] [address] * Blood culture (11/06/2021 6:47 PM EST) Blood Culture No growth at 5 days. [facility] Blood 11/06/2021 6:47 PM EST 11/06/2021 7:12 PM EST Narrative Resulting Agency Comment Spec In Lab Valorie Obrien MD MICROBIOLOGY - BLOOD ORDERABLES Performing Organization Address [facility] de Phone Number [facility] [place] [address] * XR Chest One View (11/06/2021 6:39 [...] requested your imaging first. Electronically signed by: Danielle Rausch MD, [facility]([phone]), at 11/07/2021 9:56 AM Valorie Obrien MD IMG DX ORDERABLES * (ABNORMAL) BLOOD GAS 2 ARTERIAL (11/06/2021 5:59 PM EST) pH, Arterial 7.23(Criti cindy) 7.35 - 7.45 [facility] Comment:not Noted by instrum ent nut sheller machine operator. PCO2, Arterial 43 35 - 45 mmHg [facility] PO2, Arterial 71(L) 85 - 104 mmHg [facility] Bicarbonate, Arterial 17.6(L) 20.0 - 26.0 mmol/L [facility] Base Excess, Arterial -9.9(L) -3.0 - 3.0 mmol/L [facility] Hgb Blood Gas 9.4(L) 11.7 - 15.5 g/dL [facility] Oxyhemoglobin, Arterial 90.6(L) 94.0 - 97.0 % [facility] Carboxyhemoglob in, Arterial 0.3 % [facility] Comment: Nonsmokers: 0.5-1.5% COHB Smokers: Variable, but usually less than 10% Toxic: 20-30% COHB Lethal: Greater than 60% COHB Methemoglobin, Arterial 0.8 <=1.5 % [facility] Na Whole Blood 134(L) 135 - 145 mmol/L [facility] K Whole Blood 4.4 3.5 - 5.0 mmol/L [facility] Comment: Please note: Patients with WBC >100,000 may have falsely elevated Potassium levels. Contact the Clinical Chemistry Laboratory if there are any questions. ICa Whole Blood 1.11(L) 1.15 - 1.33 mmol/L [facility] Comment: Note: ??Total bilirubin higher than 20 mg/dL may lead to falsely low ionized calcium. CL Whole Blood 109(H) 98 - 107 mmol/L [facility] Gluc Whole Bld 125 65 - 199 mg/dL [facility] Comment:Diabetes: >=200 mg/d L plus symptoms. Lactate WB 1.7 0.5 - 2.2 mmol/L [facility] FIO2 Art 70 % [facility] PF Ratio Art 101 [facility] Blood 11/06/2021 5:59 PM EST 11/06/2021 5:59 PM EST Valorie Obrien MD POINT OF CARE TEST O RDERABLES [facility] [place] [address] * (ABNORMAL) BLOOD GAS 2 ARTERIAL (11/06/2021 2:33 PM EST) pH, Arterial 7.33(L) 7.35 - 7.45 [facility] PCO2, Arterial 34(L) 35 - 45 mmHg [facility] PO2, Arterial 67(L) 85 - 104 mmHg [facility] Bicarbonate, Arterial 17.5(L) 20.0 - 26.0 mmol/L [facility] Base Excess, Arterial -8.4(L) -3.0 - 3.0 mmol/L [facility] Hgb Blood Gas 8.6(L) 11.7 - 15.5 g/dL [facility] Oxyhemoglobin, Arterial 90.9(L) 94.0 - 97.0 % [facility] Carboxyhemoglob in, Arterial 0.3 % [facility] Comment: Nonsmokers: 0.5-1.5% COHB Smokers: Variable, but usually less than 10% Toxic: 20-30% COHB Lethal: Greater than 60% COHB Methemoglobin, Arterial 0.9 <=1.5 % [facility] Na Whole Blood 132(L) 135 - 145 mmol/L [facility] K Whole Blood 4.0 3.5 - 5.0 mmol/L [facility] Comment: Please note: Patients with WBC >100,000 may have falsely elevated Potassium levels. Contact the Clinical Chemistry Laboratory if there are any questions. ICa Whole Blood 1.09(L) 1.15 - 1.33 mmol/L [facility] Comment: Note: ??Total bilirubin higher than 20 mg/dL may lead to falsely low ionized calcium. CL Whole Blood 112(H) 98 - 107 mmol/L [facility] Gluc Whole Bld 103 65 - 199 mg/dL [facility] Comment:Diabetes: >=200 mg/d L plus symptoms. Lactate WB 0.8 0.5 - 2.2 mmol/L [facility] FIO2 Art 50 % [facility] PF Ratio Art 134 [facility] Blood 11/06/2021 2:33 PM EST 11/06/2021 2:33 PM EST Valorie Obrien MD POINT OF CARE TEST O FRANCISCO JAVIER Performing Organization Address City/State/[facility] Co de Phone Number [facility] [place] [address] * Lower Respiratory Culture Tracheal Aspirate (11/06/2021 12:20 PM EST) Lower Respiratory Culture Many mixed bacterial morphotypes suggestive of normal upper respiratory al [facility] Gram Stain Many Neutrophils seen Few squamous epithelial cells seen Many mixed bacterial morphotypes suggestive of normal upper respiratory al [facility] Tracheal Aspirate 11/06/2021 12:20 PM EST 11/06/2021 12:51 PM EST Narrative Resulting Agency Comment Spec In Lab Tameka Spann MD MICROBIOLOGY - GENER AL ORDERABLES [facility] [place] [address] * (ABNORMAL) BLOOD GAS 2 ARTERIAL (11/06/2021 7:46 AM EST) pH, Arterial 7.29(Criti cindy) 7.35 - 7.45 [facility] Comment:Noted by instrument technician. PCO2, Arterial 40 35 - 45 mmHg [facility] PO2, Arterial 62(L) 85 - 104 mmHg [facility] Bicarbonate, Arterial 18.9(L) 20.0 - 26.0 mmol/L [facility] Base Excess, Arterial -7.6(L) -3.0 - 3.0 mmol/L [facility] Hgb Blood Gas 9.1(L) 11.7 - 15.5 g/dL [facility] Oxyhemoglobin, Arterial 89.0(L) 94.0 - 97.0 % [facility] Carboxyhemoglob in, Arterial 0.3 % [facility] Comment: Nonsmokers: 0.5-1.5% COHB Smokers: Variable, but usually less than 10% Toxic: 20-30% COHB Lethal: Greater than 60% COHB Methemoglobin, Arterial 0.9 <=1.5 % [facility] Na Whole Blood 128(L) 135 - 145 mmol/L [facility] K Whole Blood 4.0 3.5 - 5.0 mmol/L [facility] Comment: Please note: Patients with WBC >100,000 may have falsely elevated Potassium levels. Contact the Clinical Chemistry Laboratory if there are any questions. ICa Whole Blood 1.06(L) 1.15 - 1.33 mmol/L [facility] Comment: Note: ??Total bilirubin higher than 20 mg/dL may lead to falsely low ionized calcium. CL Whole Blood 110(H) 98 - 107 mmol/L [facility] Gluc Whole Bld 94 65 - 199 mg/dL [facility] Comment:Diabetes: >=200 mg/d L plus symptoms. Lactate WB 0.9 0.5 - 2.2 mmol/L [facility] FIO2 Art 40 % [facility] PF Ratio Art 155 [facility] Blood 11/06/2021 7:46 AM EST 11/06/2021 7:46 AM EST Valorie Obrien MD POINT OF CARE TEST O RDERABLES [facility] [place] [address] * XR Chest One View (11/06/2021 6:36 [...] ? Electronically signed by: Kimberley Pichardo MD, [facility] ([phone]), at 11/06/2021 6:47 AM Narrative 11/06/2021 6:47 AM EST EXAMINATION: XR CHEST ONE VIEW CLINICAL HISTORY: IABP placement TECHNIQUE: 1 view of the chest COMPARISON: Chest x-ray 11/05/2021. FINDINGS: Endotracheal tube terminates 3 cm above the salomón. Enteric tube courses below the diaphragm and beyond the [id number]. Right IJV approach catheter terminates in the [...] tube coursesbelow the diaphragm and beyond the [id number]-ai-ivfe. Right IJV approach catheter terminates in the [...] first. Electronically signed by: Kimberley Pichardo MD, [facility]([phone]), at 11/06/2021 6:47 AM Valorie Obrien MD IMG DX ORDERABLES * (ABNORMAL) BLOOD GAS 2 ARTERIAL (11/06/2021 4:28 AM EST) pH, Arterial 7.21(Criti cindy) 7.35 - 7.45 [facility] Comment:Noted by instrument technician. PCO2, Arterial 46(H) 35 - 45 mmHg [facility] PO2, Arterial 66(L) 85 - 104 mmHg [facility] Bicarbonate, Arterial 18.1(L) 20.0 - 26.0 mmol/L [facility] Base Excess, Arterial -9.9(L) -3.0 - 3.0 mmol/L [facility] Hgb Blood Gas 9.9(L) 11.7 - 15.5 g/dL [facility] Oxyhemoglobin, Arterial 88.6(L) 94.0 - 97.0 % [facility] Carboxyhemoglob in, Arterial 0.3 % [facility] Comment: Nonsmokers: 0.5-1.5% COHB Smokers: Variable, but usually less than 10% Toxic: 20-30% COHB Lethal: Greater than 60% COHB Methemoglobin, Arterial 0.9 <=1.5 % [facility] Na Whole Blood 130(L) 135 - 145 mmol/L [facility] K Whole Blood 4.2 3.5 - 5.0 mmol/L [facility] Comment: Please note: Patients with WBC >100,000 may have falsely elevated Potassium levels. Contact the Clinical Chemistry Laboratory if there are any questions. ICa Whole Blood 1.14(L) 1.15 - 1.33 mmol/L [facility] Comment: Note: ??Total bilirubin higher than 20 mg/dL may lead to falsely low ionized calcium. CL Whole Blood 107 98 - 107 mmol/L [facility] Gluc Whole Bld 107 65 - 199 mg/dL [facility] Comment:Diabetes: >=200 mg/d L plus symptoms. Lactate WB 0.8 0.5 - 2.2 mmol/L [facility] FIO2 Art 40 % [facility] PF Ratio Art 165 [facility] Blood 11/06/2021 4:28 AM EST 11/06/2021 4:28 AM EST Valorie Obrien MD POINT OF CARE TEST O RDERABLES [facility] [place] [address] * Scan, Peripheral Blood (11/06/2021 4:25 AM EST) Pathologist [facility] estimate Normal [facility] RBC Morphology Abnormal [facility] Macrocyte 1-5 /HPF [facility] Hypochromia Slight [facility] Tear Cell 1-5 /HPF [facility] Annel Cells 1-5 /HPF [facility] Stippled RBC Present >1/HPF [facility] Blood 11/06/2021 4:25 AM EST 11/06/2021 4:37 AM EST Narrative Resulting Agency Comment Spec In Lab Uday Alves MD HEMATOLOGY ORDERABLE S [facility] [place] [address] * (ABNORMAL) Differential, Automated (11/06/2021 4:25 AM EST) Pathologist [facility] Neutrophil % 75.1 % [facility] Neutrophil Absolute 12.72(H) 1.70 - 6.10 x10(3)/mc L [facility] Lymph % 13.5 % [facility] Lymphocytes Abs 2.3 0.9 - 3.2 x10(3)/mc L [facility] Monocyte % 8.7 % [facility] Monocyte Abs 1.5(H) 0.3 - 0.9 x10(3)/mc L [facility] Eos % 1.8 % [facility] Eosinophils Abs 0.3 0.0 - 0.4 x10(3)/mc L [facility] Basophil % 0.4 % [facility] Baso Absolute 0.1 0.0 - 0.1 x10(3)/mc L [facility] Immature Gran % 0.50 % [facility] Comment: Immature granulocytes(IG's)percentage and absolute count will include metamyelocytes, myelocytes, and promyelocytes. Blood smears from CBCs yielding IG's will be scanned manually for concordance. If this scan disagrees with the automated IG or if promyelocytes are noted, a manual differential will be performed. Immature Gran Absolute 0.09(H) 0.00 - 0.04 x10(3)/mc L [facility] Blood 11/06/2021 4:25 AM EST 11/06/2021 4:37 AM EST Narrative Resulting Agency Comment Spec In Lab Uday Alves MD HEMATOLOGY ORDERABLE S [facility] [place] [address] * (ABNORMAL) Hemogram (11/06/2021 4:25 AM EST) White Blood Cell 17.0(H) 4.0 - 9.5 x10(3)/mc L [facility] Red Blood Cell 3.38(L) 4.00 - 5.21 x10(6)/mc L [facility] Hemoglobin 9.2(L) 11.7 - 15.5 g/dL [facility] Hematocrit 28.5(L) 35.7 - 45.8 % [facility] Mean Cell Volume 84.3 82.6 - 94.4 fL [facility] Mean Cell Hemoglobin 27.2 27.1 - 32.0 pg [facility] Mean Cell Hemoglobin Concentration 32.3 31.7 - 35.0 g/dL [facility] Platelet 156 145 - 357 x10(3)/mc L [facility] RDW Standard Deviation 51.4(H) 37.0 - 46.0 fL [facility] RDW coefficient of variation 16.7(H) 11.5 - 14.1 % [facility] Mean Platelet Volume 11.4 7.6 - 12.9 fL [facility] NRBC% auto 0.0 % [facility] NRBC Absolute 0.000 0.000 - 0.000 x10(3)/mc L [facility] Blood 11/06/2021 4:25 AM EST 11/06/2021 4:37 AM EST Narrative Resulting Agency Comment Spec In Lab Uday Alves MD HEMATOLOGY ORDERABLE S Performing Organization Address [facility]/ZIP Co de Phone Number [facility] [place] [address] * Heparin (unfractionated) Level (11/06/2021 4:25 AM EST) UF Heparin 0.73 IU/mL [facility] Comment: Heparin (anti-Xa) levels should be [...] MD HEMATOLOGY ORDERABLE S Performing Organization Address [facility]/ZIP Co de Phone Number [facility] [place] [address] * (ABNORMAL) Basic Metabolic Panel (non-fasting) (11/06/2021 4:25 AM EST) Glucose 109 65 - 199 mg/dL [facility] Comment:Diabetes: >=200 mg/d L plus symptoms Blood Urea Nitrogen 14 8 - 18 mg/dL [facility] Creatinine 1.34(H) 0.70 - 1.20 mg/dL [facility] Sodium 138 135 - 145 mmol/L [facility] Potassium 4.5 3.5 - 5.0 mmol/L [facility] Comment: Please note: ??Patients with WBC >100,000 may have falsely elevated Potassium levels. ??For accurate Potassium quantification in these patients send serum separator tube (gold top) for subsequent determinations. ??Contact the Clinical Chemistry Laboratory if there are any questions. Chloride 108(H) 98 - 107 mmol/L [facility] Carbon Dioxide 19(L) 22 - 31 mmol/L [facility] Anion Gap 11 5 - 15 mmol/L [facility] Calcium 7.8(L) 8.5 - 10.5 mg/dL [facility] Est Glomerular Filtration Rate 50(L) >=60 mL/min/1. 73 m?? [facility] Comment: This patient? s estimated [...] In Lab Yohannes Dhillon MD CHEMISTRY ORDERABLES [facility] [place] [address] * Prothrombin Time (11/06/2021 4:25 AM EST) Prothrombin Time 12.4 9.4 - 12.5 sec [facility] International Normalization Ratio 1.1 [facility] Comment: An INR <2.0 indicates adequate [...] MD HEMATOLOGY ORDERABLE S Performing Organization Address City/[facility]/ZIP Co de Phone Number [facility] [place] [address] * (ABNORMAL) Hepatic Function Panel (11/06/2021 4:25 AM EST) Pathologist [facility] Protein, Total 5.3(L) 6.1 - 8.0 g/dL [facility] Albumin 3.3 3.2 - 5.2 g/dL [facility] Aspartate Aminotransferase 107(H) 0 - 30 unit/L [facility] Alanine Aminotransferase 64(H) 0 - 30 unit/L [facility] Alkaline Phosphatase 61 35 - 105 unit/L [facility] Bilirubin, Total 0.2 0.2 - 1.3 mg/dL [facility] Bilirubin, Direct 0.2 0.0 - 0.3 mg/dL [facility] Blood 11/06/2021 4:25 AM EST 11/06/2021 4:37 AM EST Narrative Resulting Agency Comment Spec In Lab Valorie Obrien MD CHEMISTRY ORDERABLES Performing Organization Address City/[facility] Co de Phone Number [facility] [place] [address] * (ABNORMAL) BLOOD GAS 2 ARTERIAL (11/05/2021 4:53 PM EST) pH, Arterial 7.36 7.35 - 7.45 [facility] PCO2, Arterial 34(L) 35 - 45 mmHg [facility] PO2, Arterial 71(L) 85 - 104 mmHg [facility] Bicarbonate, Arterial 18.6(L) 20.0 - 26.0 mmol/L [facility] Base Excess, Arterial -6.8(L) -3.0 - 3.0 mmol/L [facility] Hgb Blood Gas 8.9(L) 11.7 - 15.5 g/dL [facility] Oxyhemoglobin, Arterial 92.5(L) 94.0 - 97.0 % [facility] Carboxyhemoglob in, Arterial 0.3 % [facility] Comment: Nonsmokers: 0.5-1.5% COHB Smokers: Variable, but usually less than 10% Toxic: 20-30% COHB Lethal: Greater than 60% COHB Methemoglobin, Arterial 0.7 <=1.5 % [facility] Na Whole Blood 130(L) 135 - 145 mmol/L [facility] K Whole Blood 4.0 3.5 - 5.0 mmol/L [facility] Comment: Please note: Patients with WBC >100,000 may have falsely elevated Potassium levels. Contact the Clinical Chemistry Laboratory if there are any questions. ICa Whole Blood 1.09(L) 1.15 - 1.33 mmol/L [facility] Comment: Note: ??Total bilirubin higher than 20 mg/dL may lead to falsely low ionized calcium. CL Whole Blood 110(H) 98 - 107 mmol/L [facility] Gluc Whole Bld 98 65 - 199 mg/dL [facility] Comment:Diabetes: >=200 mg/d L plus symptoms. Lactate WB 1.0 0.5 - 2.2 mmol/L [facility] FIO2 Art 40 % [facility] PF Ratio Art 178 [facility] Blood 11/05/2021 4:53 PM EST 11/05/2021 4:53 PM EST Valorie Obrien MD POINT OF CARE TEST O RDERABLES [facility] [place] [address] * EKG 12 Lead (11/05/2021 4:01 PM EST) Ventricular rate 44 BPM MUSE SYSTEM Atrial Rate 44 BPM MUSE SYSTEM P-R Interval 140 ms MUSE SYSTEM QRS Duration 86 ms MUSE SYSTEM Q-T Interval 558 ms MUSE SYSTEM QTC Calculated (Bezet) 477 ms MUSE SYSTEM Calculated P [place] 46 degrees MUSE SYSTEM Calculated R [place] 50 degrees MUSE SYSTEM Calculated T [place] 39 degrees MUSE SYSTEM INTERPRETATION Marked sinus bradycardia Prolonged QT Nonspecific ST abnormality Abnormal ECG When compared with ECG of 05-NOV-2021 08:59, No significant change was found Confirmed by MD Levi, Wyatt ([id number]) on 11/06/2021 11:47:37 AM MUSE SYSTEM 11/05/2021 4:01 PM EST 11/06/2021 11:47 AM EST Yohannes Dhillon MD ECG ORDERABLES MUSE SYSTEM * (ABNORMAL) BLOOD GAS 2 ARTERIAL (11/05/2021 2:06 PM EST) pH, Arterial 7.26(Criti cindy) 7.35 - 7.45 [facility] PCO2, Arterial 46(H) 35 - 45 mmHg [facility] PO2, Arterial 85 85 - 104 mmHg [facility] Bicarbonate, Arterial 20.1 20.0 - 26.0 mmol/L [facility] Base Excess, Arterial -6.9(L) -3.0 - 3.0 mmol/L [facility] Hgb Blood Gas 10.2(L) 11.7 - 15.5 g/dL [facility] Oxyhemoglobin, Arterial 93.6(L) 94.0 - 97.0 % [facility] Carboxyhemoglob in, Arterial 0.3 % [facility] Comment: Nonsmokers: 0.5-1.5% COHB Smokers: Variable, but usually less than 10% Toxic: 20-30% COHB Lethal: Greater than 60% COHB Methemoglobin, Arterial 0.6 <=1.5 % [facility] Na Whole Blood 130(L) 135 - 145 mmol/L [facility] K Whole Blood 4.1 3.5 - 5.0 mmol/L [facility] Comment: Please note: Patients with WBC >100,000 may have falsely elevated Potassium levels. Contact the Clinical Chemistry Laboratory if there are any questions. ICa Whole Blood 1.15 1.15 - 1.33 mmol/L [facility] Comment: Note: ??Total bilirubin higher than 20 mg/dL may lead to falsely low ionized calcium. CL Whole Blood 109(H) 98 - 107 mmol/L [facility] Gluc Whole Bld 100 65 - 199 mg/dL [facility] Comment:Diabetes: >=200 mg/d L plus symptoms. Lactate WB 0.7 0.5 - 2.2 mmol/L [facility] FIO2 Art 40 % [facility] PF Ratio Art 212 [facility] Blood 11/05/2021 2:06 PM EST 11/05/2021 2:06 PM EST Valorie Obrien MD POINT OF CARE TEST O RDERABLES Performing Organization Address City/[facility] Co de Phone Number [facility] [place] [address] * Magnesium (11/05/2021 2:06 PM EST) Magnesium 0.99 0.69 - 1.07 mmol/L [facility] Blood 11/05/2021 2:06 PM EST 11/05/2021 2:29 PM EST Narrative Resulting Agency Comment Spec In Lab Valorie Obrien MD CHEMISTRY ORDERABLES Performing Organization Address [facility]/ZIP Co de Phone Number [facility] [place] [address] * (ABNORMAL) Basic Metabolic Panel (non-fasting) (11/05/2021 2:06 PM EST) Glucose 98 65 - 199 mg/dL [facility] Comment:Diabetes: >=200 mg/d L plus symptoms Blood Urea Nitrogen 15 8 - 18 mg/dL [facility] Creatinine 1.17 0.70 - 1.20 mg/dL [facility] Sodium 137 135 - 145 mmol/L [facility] Potassium 4.3 3.5 - 5.0 mmol/L [facility] Comment: Please note: ??Patients with WBC >100,000 may have falsely elevated Potassium levels. ??For accurate Potassium quantification in these patients send serum separator tube (gold top) for subsequent determinations. ??Contact the Clinical Chemistry Laboratory if there are any questions. Chloride 108(H) 98 - 107 mmol/L [facility] Carbon Dioxide 19(L) 22 - 31 mmol/L [facility] Anion Gap 10 5 - 15 mmol/L [facility] Calcium 7.7(L) 8.5 - 10.5 mg/dL [facility] Est Glomerular Filtration Rate 59(L) >=60 mL/min/1. 73 m?? [facility] Comment: This patient? s estimated [...] In Lab Valorie Obrien MD CHEMISTRY ORDERABLES [facility] [place] [address] * Carotid Duplex, Bilateral (11/05/2021 2:02 PM EST) VB Text Report Department: Vascular Surgery Lab Patient: [id number] (ANIYA LUNDY) CPT: 44310 Referring Physician: VALORIE OBRIEN ?? Phone: Indications: [...] PM EST Valorie Obrien MD VASCULAR ORDERABLES [facility] * EKG 12 Lead (11/05/2021 8:59 AM EST) Ventricular rate 49 BPM MUSE SYSTEM Atrial Rate 49 BPM MUSE SYSTEM P-R Interval 134 ms MUSE SYSTEM QRS Duration 88 ms MUSE SYSTEM Q-T Interval 540 ms MUSE SYSTEM QTC Calculated (Bezet) 487 ms MUSE SYSTEM Calculated P [place] 42 degrees MUSE SYSTEM Calculated R [place] 43 degrees MUSE SYSTEM Calculated T [place] 44 degrees MUSE SYSTEM INTERPRETATION Sinus bradycardia Prolonged QT Nonspecific ST abnormality Abnormal ECG When compared with ECG of 04-NOV-2021 15:23, No significant change was found I personally reviewed the tracing and edited the fellows interpretation Confirmed by fellow Alexei Gray ([id number]) on 11/05/2021 4:33:54 PM Confirmed by MD Levi, Wyatt ([id number]) on 11/05/2021 4:37:08 PM MUSE SYSTEM 11/05/2021 8:59 AM EST 11/05/2021 4:37 PM EST Yohannes Dhillon MD ECG ORDERABLES MUSE SYSTEM * XR Chest One View [...] your imaging first. ? Electronically signed by: Danielle Rausch MD, [facility] ([phone]), at 11/05/2021 9:48 AM Narrative 11/05/2021 9:48 AM EST EXAMINATION: XR CHEST ONE VIEW CLINICAL HISTORY: IABP Placement TECHNIQUE: 1 view of the chest COMPARISON: Chest radiograph 11/04/2021 at 2020 and 1000 CTA chest 11/04/2021 FINDINGS: Endotracheal tube tip is 2.8 cm above the salomón. Enteric tube courses below the diaphragm, the tip is not within the [id number]-ge-yzqp. Esophageal temperature probe terminates in the mid esophagus. Right IJ approach Beulah-Jazmin catheter terminates in the right pulmonary artery. [...] diaphragm, the tip is not within the [id number]-zb-[id number]. Esophageal temperatureprobe terminates in the mid esophagus. Right IJ approach Beulah-Jazmin catheterterminates in the right pulmonary artery. Intra-aortic [...] requested your imaging first. Electronically signed by: Danielle Rausch MD, [facility]([phone]), at 11/05/2021 9:48 AM Valorie Obrien MD IMG DX ORDERABLES * (ABNORMAL) BLOOD GAS 2 ARTERIAL (11/05/2021 8:05 AM EST) pH, Arterial 7.38 7.35 - 7.45 [facility] PCO2, Arterial 31(L) 35 - 45 mmHg [facility] PO2, Arterial 92 85 - 104 mmHg [facility] Bicarbonate, Arterial 17.5(L) 20.0 - 26.0 mmol/L [facility] Base Excess, Arterial -7.7(L) -3.0 - 3.0 mmol/L [facility] Hgb Blood Gas 9.8(L) 11.7 - 15.5 g/dL [facility] Oxyhemoglobin, Arterial 95.2 94.0 - 97.0 % [facility] Carboxyhemoglob in, Arterial 0.3 % [facility] Comment: Nonsmokers: 0.5-1.5% COHB Smokers: Variable, but usually less than 10% Toxic: 20-30% COHB Lethal: Greater than 60% COHB Methemoglobin, Arterial 0.7 <=1.5 % [facility] Na Whole Blood 134(L) 135 - 145 mmol/L [facility] K Whole Blood 3.9 3.5 - 5.0 mmol/L [facility] Comment: Please note: Patients with WBC >100,000 may have falsely elevated Potassium levels. Contact the Clinical Chemistry Laboratory if there are any questions. ICa Whole Blood 1.10(L) 1.15 - 1.33 mmol/L [facility] Comment: Note: ??Total bilirubin higher than 20 mg/dL may lead to falsely low ionized calcium. CL Whole Blood 111(H) 98 - 107 mmol/L [facility] Gluc Whole Bld 105 65 - 199 mg/dL [facility] Comment:Diabetes: >=200 mg/d L plus symptoms. Lactate WB 0.8 0.5 - 2.2 mmol/L [facility] FIO2 Art 40 % [facility] PF Ratio Art 230 [facility] Blood 11/05/2021 8:05 AM EST 11/05/2021 8:05 AM EST Valorie Obrien MD POINT OF CARE TEST O RDERABLES Performing Organization Address [facility]/ZIP Co de Phone Number [facility] [place] [address] * (ABNORMAL) CRP, acute inflammation (11/05/2021 6:27 AM EST) C-Reactive Protein 29.1(H) <=4.9 mg/L [facility] Blood Venous Draw / Unknown 11/05/2021 6:27 AM EST 11/05/2021 6:36 AM EST Narrative Resulting Agency Comment Spec In Lab Uday Alves MD CHEMISTRY ORDERABLES Performing Organization Address City/[facility]/ZIP Co de Phone Number [facility] [place] [address] * Heparin (unfractionated) Level (11/05/2021 6:27 AM EST) UF Heparin 0.58 IU/mL [facility] Comment: Heparin (anti-Xa) levels should be [...] MD HEMATOLOGY ORDERABLE S Performing Organization Address [facility]/ZIP Co de Phone Number [facility] [place] [address] * (ABNORMAL) Troponin (11/05/2021 6:27 AM EST) Troponin-T 0.06(H) 0.00 - 0.00 ng/mL [facility] Comment: The 99th percentile for Troponin T is less than 0.01 ng/mL, any detectable cTnT concentration using this assay should be considered elevated. According to the third universal definition of myocardial infarction the following criteria with a clinical presentation consistent with acute myocardial ischemia meets the diagnosis for a myocardial infarction (MA). Detection of a rise and/or fall of cTnT, with at least one value greater than the 99th percentile (> or = 0.01) and with at least one of the following ?? Symptoms of ischemia ?? New or presumed new significant [id number] wave (ST-T) changes or new left bundle [...] additional sample may be indicated. Reference: Third Pierz Definition of Myocardial Infarction. Journal of the [employer] 2012;60:1581-98 Blood 11/05/2021 6:27 AM EST 11/05/2021 6:35 AM EST Narrative Resulting Agency Comment Spec In Lab Valorie Obrien MD CHEMISTRY ORDERABLES Performing Organization Address [facility]/ZIP Co de Phone Number [facility] [place] [address] * Sedimentation rate (11/05/2021 1:08 AM EST) Sedimentation Rate Automated <3 2 - 37 mm/hr [facility] Comment: Effective September 29, 2019 new capillary photometric technology has resulted in a change in reference ranges. It is recommended that each ESR result be reviewed with its own age appropriate reference range. Blood Venous Draw / Unknown 11/05/2021 1:08 AM EST 11/05/2021 1:21 AM EST Narrative Resulting Agency Comment Spec In Lab Uday Alves MD HEMATOLOGY ORDERABLE S [facility] [place] [address] * (ABNORMAL) Differential, Automated (11/05/2021 1:08 AM EST) Neutrophil % 64.8 % [facility] Neutrophil Absolute 7.68(H) 1.70 - 6.10 x10(3)/[facility] Lymph % 24.6 % [facility] Lymphocytes Abs 2.9 0.9 - 3.2 x10(3)/[facility] Monocyte % 8.4 % [facility] Monocyte Abs 1.0(H) 0.3 - 0.9 x10(3)/ L [facility] Eos % 1.4 % [facility] Eosinophils Abs 0.2 0.0 - 0.4 x10(3)/[facility] Basophil % 0.3 % [facility] Baso Absolute 0.0 0.0 - 0.1 x10(3)/ L [facility] Immature Gran % 0.50 % [facility] Comment: Immature granulocytes(IG's)percentage and absolute count will include metamyelocytes, myelocytes, and promyelocytes. Blood smears from CBCs yielding IG's will be scanned manually for concordance. If this scan disagrees with the automated IG or if promyelocytes are noted, a manual differential will be performed. Immature Gran Absolute 0.06(H) 0.00 - 0.04 x10(3)/ L [facility] Blood 11/05/2021 1:08 AM EST 11/05/2021 1:21 AM EST Narrative Resulting Agency Comment Spec In Lab Uday Alves MD HEMATOLOGY ORDERABLE S Performing Organization Address City/State/[facility] Co de Phone Number [facility] [place] [address] * (ABNORMAL) Hemogram (11/05/2021 1:08 AM EST) White Blood Cell 11.8(H) 4.0 - 9.5 x10(3)/mc L [facility] Red Blood Cell 3.73(L) 4.00 - 5.21 x10(6)/mc L [facility] Hemoglobin 9.7(L) 11.7 - 15.5 g/dL [facility] Hematocrit 30.9(L) 35.7 - 45.8 % [facility] Mean Cell Volume 82.8 82.6 - 94.4 fL [facility] Mean Cell Hemoglobin 26.0(L) 27.1 - 32.0 pg [facility] Mean Cell Hemoglobin Concentration 31.4(L) 31.7 - 35.0 g/dL [facility] Platelet 185 145 - 357 x10(3)/mc L [facility] RDW Standard Deviation 50.1(H) 37.0 - 46.0 fL [facility] RDW coefficient of variation 16.7(H) 11.5 - 14.1 % [facility] Mean Platelet Volume 12.1 7.6 - 12.9 fL [facility] NRBC% auto 0.0 % [facility] NRBC Absolute 0.000 0.000 - 0.000 x10(3)/mc L [facility] Blood 11/05/2021 1:08 AM EST 11/05/2021 1:21 AM EST Narrative Resulting Agency Comment Spec In Lab Uday Alves MD HEMATOLOGY ORDERABLE S Performing Organization Address City/State/[facility] Co de Phone Number [facility] [place] [address] * Phosphorus (11/05/2021 1:08 AM EST) Phosphorus 2.9 2.5 - 4.5 mg/dL [facility] Blood 11/05/2021 1:08 AM EST 11/05/2021 1:21 AM EST Narrative Resulting Agency Comment Spec In Lab Valorie Obrien MD CHEMISTRY ORDERABLES Performing Organization Address [facility] Co de Phone Number [facility] [place] [address] * Magnesium (11/05/2021 1:08 AM EST) Magnesium 0.80 0.69 - 1.07 mmol/L [facility] Blood 11/05/2021 1:08 AM EST 11/05/2021 1:21 AM EST Narrative Resulting Agency Comment Spec In Lab Valorie Obrien MD CHEMISTRY ORDERABLES Performing Organization Address [facility] de Phone Number [facility] [place] [address] * (ABNORMAL) Troponin (11/05/2021 1:08 AM EST) Troponin-T 0.07(H) 0.00 - 0.00 ng/mL [facility] Comment: The 99th percentile for Troponin T is less than 0.01 ng/mL, any detectable cTnT concentration using this assay should be considered elevated. According to the third universal definition of myocardial infarction the following criteria with a clinical presentation consistent with acute myocardial ischemia meets the diagnosis for a myocardial infarction (MA). Detection of a rise and/or fall of cTnT, with at least one value greater than the 99th percentile (> or = 0.01) and with at least one of the following ?? Symptoms of ischemia ?? New or presumed new significant [id number]-N wave (ST-T) changes or new left bundle [...] additional sample may be indicated. Reference: Third Pierz Definition of Myocardial Infarction. Journal of the [place] [employer] 2012;60:1581-98 Blood 11/05/2021 1:08 AM EST 11/05/2021 1:21 AM EST Narrative Resulting Agency Comment Spec In Lab Valorie Obrien MD CHEMISTRY ORDERABLES Performing Organization Address [facility] Co de Phone Number [facility] [place] [address] * Heparin (unfractionated) Level (11/05/2021 1:08 AM EST) UF Heparin 0.51 IU/mL [facility] Comment: Heparin (anti-Xa) levels should be [...] MD HEMATOLOGY ORDERABLE S Performing Organization Address [facility] Co de Phone Number [facility] [place] [address] * (ABNORMAL) Basic Metabolic Panel (non-fasting) (11/05/2021 1:08 AM EST) Glucose 104 65 - 199 mg/dL [facility] Comment:Diabetes: >=200 mg/d L plus symptoms Blood Urea Nitrogen 17 8 - 18 mg/dL [facility] Creatinine 0.78 0.70 - 1.20 mg/dL [facility] Sodium 137 135 - 145 mmol/L [facility] Comment:result rechecked-KS Potassium 4.0 3.5 - 5.0 mmol/L [facility] Comment: result rechecked-KS Please note: ??Patients with WBC >100,000 may have falsely elevated Potassium levels. ??For accurate Potassium quantification in these patients send serum separator tube (gold top) for subsequent determinations. ??Contact the Clinical Chemistry Laboratory if there are any questions. Chloride 110(H) 98 - 107 mmol/L [facility] Comment:result rechecked-KS Carbon Dioxide 19(L) 22 - 31 mmol/L [facility] Anion Gap 8 5 - 15 mmol/L [facility] Calcium 7.7(L) 8.5 - 10.5 mg/dL [facility] Comment:result rechecked-KS Est Glomerular Filtration Rate 97 >=60 mL/min/1. 73 m?? [facility] Comment: This patient? s estimated [...] In Lab Yohannes Dhillon MD CHEMISTRY ORDERABLES [facility] [place] [address] * (ABNORMAL) BLOOD GAS 2 ARTERIAL (11/05/2021 1:07 AM EST) pH, Arterial 7.36 7.35 - 7.45 [facility] PCO2, Arterial 33(L) 35 - 45 mmHg [facility] PO2, Arterial 86 85 - 104 mmHg [facility] Bicarbonate, Arterial 18.4(L) 20.0 - 26.0 mmol/L [facility] Base Excess, Arterial -7.0(L) -3.0 - 3.0 mmol/L [facility] Hgb Blood Gas 10.8(L) 11.7 - 15.5 g/dL [facility] Oxyhemoglobin, Arterial 94.7 94.0 - 97.0 % [facility] Carboxyhemoglob in, Arterial 0.3 % [facility] Comment: Nonsmokers: 0.5-1.5% COHB Smokers: Variable, but usually less than 10% Toxic: 20-30% COHB Lethal: Greater than 60% COHB Methemoglobin, Arterial 0.7 <=1.5 % [facility] Na Whole Blood 136 135 - 145 mmol/L [facility] K Whole Blood 4.0 3.5 - 5.0 mmol/L [facility] Comment: Please note: Patients with WBC >100,000 may have falsely elevated Potassium levels. Contact the Clinical Chemistry Laboratory if there are any questions. ICa Whole Blood 1.12(L) 1.15 - 1.33 mmol/L [facility] Comment: Note: ??Total bilirubin higher than 20 mg/dL may lead to falsely low ionized calcium. CL Whole Blood 109(H) 98 - 107 mmol/L [facility] Gluc Whole Bld 103 65 - 199 mg/dL [facility] Comment:Diabetes: >=200 mg/d L plus symptoms. Lactate WB 0.8 0.5 - 2.2 mmol/L [facility] FIO2 Art 40 % [facility] PF Ratio Art 215 [facility] Blood 11/05/2021 1:07 AM EST 11/05/2021 1:07 AM EST Valorie Obrien MD POINT OF CARE TEST O RDERABLES Performing Organization Address [facility]/ZIP Co de Phone Number [facility] [place] [address] * Blood culture (11/04/2021 10:50 PM EST) Blood Culture No growth at 5 days. [facility] Blood STRUCTURE OF RIGHT HAND / Unknown 11/04/2021 10:50 PM EST 11/04/2021 11:00 PM EST Narrative Resulting Agency Comment Spec In Lab Yohannes Dhillon MD MICROBIOLOGY - BLOOD ORDERABLES Performing Organization Address [facility] Co de Phone Number [facility] [place] [address] * Blood culture (11/04/2021 10:15 PM EST) Blood Culture No growth at 5 days. [facility] Blood ANTECUBITAL REGION STRUCTURE / Unknown 11/04/2021 10:15 PM EST 11/04/2021 10:59 PM EST Narrative Resulting Agency Comment Spec In Lab Yohannes Dhillon MD MICROBIOLOGY - BLOOD ORDERABLES Performing Organization Address City/[facility] Co de Phone Number [facility] [place] [address] * Green Tube HOLD (11/04/2021 8:58 PM EST) Green Hold Sample in lab. [facility] Blood Venous Draw / Unknown 11/04/2021 8:58 PM EST 11/04/2021 9:07 PM EST Uday Alves MD CHEMISTRY ORDERABLES [facility] [place] [address] * (ABNORMAL) BLOOD GAS 2 ARTERIAL (11/04/2021 8:58 PM EST) pH, Arterial 7.40 7.35 - 7.45 [facility] PCO2, Arterial 26(L) 35 - 45 mmHg [facility] PO2, Arterial 228(H) 85 - 104 mmHg [facility] Bicarbonate, Arterial 16.2(L) 20.0 - 26.0 mmol/L [facility] Base Excess, Arterial -8.9(L) -3.0 - 3.0 mmol/L [facility] Hgb Blood Gas 10.7(L) 11.7 - 15.5 g/dL [facility] Oxyhemoglobin, Arterial 98.0(H) 94.0 - 97.0 % [facility] Carboxyhemoglob in, Arterial 0.3 % [facility] Comment: Nonsmokers: 0.5-1.5% COHB Smokers: Variable, but usually less than 10% Toxic: 20-30% COHB Lethal: Greater than 60% COHB Methemoglobin, Arterial 0.6 <=1.5 % [facility] Na Whole Blood 134(L) 135 - 145 mmol/L [facility] K Whole Blood 4.2 3.5 - 5.0 mmol/L [facility] Comment: Please note: Patients with WBC >100,000 may have falsely elevated Potassium levels. Contact the Clinical Chemistry Laboratory if there are any questions. ICa Whole Blood 1.09(L) 1.15 - 1.33 mmol/L [facility] Comment: Note: ??Total bilirubin higher than 20 mg/dL may lead to falsely low ionized calcium. CL Whole Blood 109(H) 98 - 107 mmol/L [facility] Gluc Whole Bld 103 65 - 199 mg/dL [facility] Comment:Diabetes: >=200 mg/d L plus symptoms. Lactate WB 0.9 0.5 - 2.2 mmol/L [facility] FIO2 Art 60 % [facility] PF Ratio Art 380 [facility] Temp Art 35.5 Celsius [facility] Blood 11/04/2021 8:58 PM EST 11/04/2021 8:58 PM EST Valorie Obrien MD POINT OF CARE TEST O RDERABLES [facility] [place] [address] * Extractable Nuclear Antigen (NILAY) Ab (11/04/2021 8:58 PM EST) NILAY Ab Test ?Result ? Flag ??Unit ??RefValue Ab to Extractable Nuclear Ag Eval,S ??SS-A/Ro Ab, IgG, S ?<0.2 ? U ? <1.0 (Negative) ??SS-B/La Ab, IgG, S ?<0.2 ? U ? <1.0 (Negative) ??Sm Ab, IgG, S ? <0.2 ? U ? <1.0 (Negative) ??HOUSEKEEPING LEAD Ab, IgG, S ?0.5 ?U ? <1.0 (Negative) ??Scl 70 Ab, IgG, S ? <0.2 ? U ? <1.0 (Negative) ??Consuelo 1 Ab, IgG, S ? <0.2 ? U ? <1.0 (Negative) ?Test Performed by: ?[facility] ?[address] [place] [address] ?Performance Analyst: Binh Clayton M.D. Ph.D.; CLIA# [id number] [facility] Blood 11/04/2021 8:58 PM EST 11/05/2021 10:21 AM EST Narrative Resulting Agency Comment Spec In Lab Valorie Obrien MD LAB SEND OUT ORDERAB LES Performing Organization Address City/State/[facility] Co de Phone Number [facility] [place] [address] * DARIAN (11/04/2021 8:58 PM EST) DARIAN Ab Screen Test ?Result ? Flag ??Unit ??RefValue Antinuclear Ab, HEp-2 ? <1:80 (Negative) ? <1:80 (Negative) ??Substrate, S ? ADDITIONAL INFORMATION --------- ?Method: Immunofluorescence using HEp-2 cellular substrate. ?Test Performed by: ?[facility] ?[address] [place] [address] ?Performance Analyst: Binh Clayton M.D. Ph.D.; CLIA# [id number] [facility] Blood 11/04/2021 8:58 PM EST 11/05/2021 10:21 AM EST Narrative Resulting Agency Comment Spec In Lab Valorie Obrien MD LAB SEND OUT ORDERAB LES [facility] [place] [address] * XR Chest One View (11/04/2021 8:22 [...] ? 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 Electronically signed by: Jennifer Bassett MD, [facility]([phone]), at 11/04/2021 8:53 PM Valorie Obrien MD IMG DX ORDERABLES * CARDIAC CATHETERIZATION (11/04/2021 6:30 PM EST) Anatomical Region Laterality Modality Other Narrative 11/06/2021 5:59 AM EST ?[facility] ? Cardiac Catheterization/Intervention Report ? Patient Name: Aniya LundyJosse ? Procedure Date: 11/04/2021 ? A #: [id number] ? Primary Physician: Jama Melo ? Case #: [id number] ? File Name: [id number] ? Catheterization Order Number: [id number] ? [facility] ? Final Report [place], [place] ? Patient Name: ? Aniya A. Kamron ?ID#: ?[id number] ? : ?1985 ? Procedure Date: ? November 04, 2021 ? Case #: ? [id number] ? Room: ? 6 ? Case Physician: [...] on an emergent basis. ? History ?Aniya Lundy is a 36 year old woman. [...] procedure was Emergent. 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 Chest pain symptom [...] defibrillations. ? 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 [...] not to perform angiography of the RCA. ?Beulah Jazmin catheter placed via the RIJ with [...] line / sheath insert, IABP insertion in open hearth furnace laborer, ?ABG, Beulah (flow directed cath) insertion, vascular ultrasound and ?hypothermia device. ? Jama Melo M.D. ? Electronically Signed by: Jama Melo M.D. ? Report Finalized: 11/04/2021 ??19:32 ? Report Last Ammended: 11/12/2021 ??09:10 ? Procedure Note Jama Melo MD - 11/12/2021 [facility] Cardiac Catheterization/Intervention Report Patient Name: Trina Lundyher Natalie Procedure Date: 11/04/2021 A #: [id number] Primary Physician: aJma Melo Case #: [id number] File Name: [id number] Catheterization Order Number: [id number] [facility] FinalReport [place], [place] Patient Name: Aniya Lundy ID#:[id number] :1985 Procedure Date: November 04, 2021 Case [...] patient was designated as ASAClass V. The [facility] clinical frailty scale is 2: Well. Diagnostic [...] diagnostic procedure was Emergent. Theindication for the open hearth furnace laborer visit is cardiac arrhythmia. Chest pain symptomassessment [...] multiple defibrillations. 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 ST [...] not to perform angiography of the RCA. Beulah Jazmin catheter placed via the RIJ with [...] sheath insert, IABP insertion in cathlab, ABG, Beulah (flow directed cath) insertion, vascular ultrasound and hypothermia device. Jama Melo M.D. Electronically Signed by: Jama Melo M.D. Report Finalized: 11/04/2021 19:32 Report Last Ammended: 11/12/2021 09:10 Jama Melo MD CARDIAC CATH ORDERAB LES * (ABNORMAL) Point of Care Blood Gas Historical (11/04/2021 5:57 PM EST) pH, POC 7.39 7.35 - 7.45 [facility] pCO2, POC 36 35 - 45 mmHg [facility] pO2, POC 315(H) 85 - 104 mmHg [facility] Base Excess, POC -3.0 -3.0 - 3.0 mmol/L [facility] Bicarbonate, POC 21.9 20.0 - 26.0 mmol/L [facility] Sodium, POC 140 135 - 145 mmol/L [facility] POC Potassium 4.5 3.5 - 5.0 mmol/L [facility] POC Hematocrit 34.0 34.0 - 45.0 % [facility] POC Calc Hgb 11.6 11.2 - 15.7 g/dL [facility] Comment:The calculation of h emoglobin from hematocrit assumes a normal MCHC. POC Bgas Loc CC LAB [facility] Blood 11/04/2021 5:57 PM EST 11/08/2021 9:00 AM EST Neeraj Pompa MD CHEMISTRY ORDERABLES [facility] [place] [address] * (ABNORMAL) Differential, Automated (11/04/2021 3:30 PM EST) Neutrophil % 80.8 % [facility] Neutrophil Absolute 13.58(H) 1.70 - 6.10 x10(3)/[facility] Lymph % 12.3 % [facility] Lymphocytes Abs 2.1 0.9 - 3.2 x10(3)/[facility] Monocyte % 6.0 % [facility] Monocyte Abs 1.0(H) 0.3 - 0.9 x10(3)/[facility] Eos % 0.2 % [facility] Eosinophils Abs 0.0 0.0 - 0.4 x10(3)/[facility] Basophil % 0.2 % [facility] Baso Absolute 0.0 0.0 - 0.1 x10(3)/[facility] Immature Gran % 0.50 % [facility] Comment: Immature granulocytes(IG's)percentage and absolute count will include metamyelocytes, myelocytes, and promyelocytes. Blood smears from CBCs yielding IG's will be scanned manually for concordance. If this scan disagrees with the automated IG or if promyelocytes are noted, a manual differential will be performed. Immature Gran Absolute 0.08(H) 0.00 - 0.04 x10(3)/[facility] Blood 11/04/2021 3:30 PM EST 11/04/2021 3:59 PM EST Narrative Resulting Agency Comment Spec In Lab Aniya Henry MD HEMATOLOGY ORDERABLE S [facility] [place] [address] * (ABNORMAL) Hemogram (11/04/2021 3:30 PM EST) White Blood Cell 16.8(H) 4.0 - 9.5 x10(3)/[facility] Red Blood Cell 4.23 4.00 - 5.21 x10(6)/[facility] Hemoglobin 11.0(L) 11.7 - 15.5 g/dL [facility] Hematocrit 34.9(L) 35.7 - 45.8 % [facility] Mean Cell Volume 82.5(L) 82.6 - 94.4 fL [facility] Mean Cell Hemoglobin 26.0(L) 27.1 - 32.0 pg [facility] Mean Cell Hemoglobin Concentration 31.5(L) 31.7 - 35.0 g/dL [facility] Platelet 230 145 - 357 x10(3)/ L [facility] RDW Standard Deviation 49.1(H) 37.0 - 46.0 [facility] RDW coefficient of variation 16.6(H) 11.5 - 14.1 % [facility] Mean Platelet Volume 11.9 7.6 - 12.9 fL [facility] NRBC% auto 0.0 % [facility] NRBC Absolute 0.000 0.000 - 0.000 x10(3)/[facility] Blood 11/04/2021 3:30 PM EST 11/04/2021 3:59 PM EST Narrative Resulting Agency Comment Spec In Lab Aniya Henry MD HEMATOLOGY ORDERABLE S Performing Organization Address City/State/[facility] Co de Phone Number [facility] [place] [address] * EKG 12 Lead (11/04/2021 3:23 PM EST) Ventricular rate 64 BPM MUSE SYSTEM Atrial Rate 64 BPM MUSE SYSTEM P-R Interval 116 ms MUSE SYSTEM QRS Duration 92 ms MUSE SYSTEM Q-T Interval 444 ms MUSE SYSTEM QTC Calculated (Bezet) 458 ms MUSE SYSTEM Calculated P [place] 49 degrees MUSE SYSTEM Calculated R [place] 57 degrees MUSE SYSTEM Calculated T [place] 57 degrees MUSE SYSTEM INTERPRETATION Normal sinus rhythm Nonspecific ST abnormality Abnormal ECG When compared with ECG of 04-NOV-2021 07:37, Vent. rate has decreased BY ??54 BPM Confirmed by MD Sims Stanislav ([id number]) on 11/04/2021 5:21:19 PM MUSE SYSTEM 11/04/2021 3:23 PM EST 11/04/2021 5:21 PM EST Valorie Obrien MD ECG ORDERABLES Performing Organization Address City/[facility]/ZIP Co de Phone Number MUSE SYSTEM * POCT Glucose (11/04/2021 2:54 PM EST) Glucose, POC 94 65 - 199 mg/dL [facility] Comment: Supplemental ranges: <140 mg/dL before meals <180 mg/dL all other times of the day Blood 11/04/2021 2:54 PM EST 11/04/2021 2:54 PM EST Valorie Obrien MD POINT OF CARE TEST O RDERABLES Performing Organization Address [facility] Co de Phone Number [facility] [place] [address] * (ABNORMAL) Troponin (11/04/2021 1:00 PM EST) Troponin-T 0.24(H) 0.00 - 0.00 ng/mL [facility] Comment: Called by: MAC, Read back by: Tio Cuevas, Date/Time:11/04/21 13:49. The 99th percentile for Troponin T is less than 0.01 ng/mL, any detectable cTnT concentration using this assay should be considered elevated. According to the third universal definition of myocardial infarction the following criteria with a clinical presentation consistent with acute myocardial ischemia meets the diagnosis for a myocardial infarction (MA). Detection of a rise and/or fall of cTnT, with at least one value greater than the 99th percentile (> or = 0.01) and with at least one of the following ?? Symptoms of ischemia ?? New or presumed new significant EL-szgskrt-A wave (ST-T) changes or new left bundle [...] additional sample may be indicated. Reference: Third Pierz Definition of Myocardial Infarction. Journal of the [place] [employer] 2012;60:1581-98 Blood 11/04/2021 1:00 PM EST 11/04/2021 1:13 PM EST Narrative Resulting Agency Comment Spec In Lab Valorie Obrien MD CHEMISTRY ORDERABLES [facility] [place] [address] * (ABNORMAL) BLOOD GAS 2 ARTERIAL (11/04/2021 12:57 PM EST) pH, Arterial 7.36 7.35 - 7.45 [facility] PCO2, Arterial 37 35 - 45 mmHg [facility] PO2, Arterial 187(H) 85 - 104 mmHg [facility] Bicarbonate, Arterial 20.4 20.0 - 26.0 mmol/L [facility] Base Excess, Arterial -5.1(L) -3.0 - 3.0 mmol/L [facility] Hgb Blood Gas 12.0 11.7 - 15.5 g/dL [facility] Oxyhemoglobin, Arterial 97.4(H) 94.0 - 97.0 % [facility] Carboxyhemoglob in, Arterial 0.3 % [facility] Comment: Nonsmokers: 0.5-1.5% COHB Smokers: Variable, but usually less than 10% Toxic: 20-30% COHB Lethal: Greater than 60% COHB Methemoglobin, Arterial 0.5 <=1.5 % [facility] Na Whole Blood 138 135 - 145 mmol/L [facility] K Whole Blood 5.0 3.5 - 5.0 mmol/L [facility] Comment: Please note: Patients with WBC >100,000 may have falsely elevated Potassium levels. Contact the Clinical Chemistry Laboratory if there are any questions. ICa Whole Blood 1.12(L) 1.15 - 1.33 mmol/L [facility] Comment: Note: ??Total bilirubin higher than 20 mg/dL may lead to falsely low ionized calcium. CL Whole Blood 107 98 - 107 mmol/L [facility] Gluc Whole Bld 92 65 - 199 mg/dL [facility] Comment:Diabetes: >=200 mg/d L plus symptoms. Lactate WB 1.1 0.5 - 2.2 mmol/L [facility] Blood 11/04/2021 12:5 7 PM EST 11/04/2021 12:57 PM EST Valorie Obrien MD POINT OF CARE TEST O RDERABLES Performing Organization Address City/State/[facility] Co de Phone Number [facility] [place] [address] * ECHO LMTD W/O CONTRAST W LMTD SPEC DOPP COLOR DOPP (11/04/2021 12:12 PM EST) EF 68 HEARTLAB SYSTEM Anatomical Region Laterality Modality Other 11/04/2021 Narrative 11/04/2021 12:58 PM EST Procedure: ?Transthoracic Echocardiogram Patient: ?KAMRON MANZANO A ?(Age): 1985(36y) Med Rec#: ? [id number] ?Sex: ?F ? [place] [facility] [place] / Wt: ??163(cm)/70(kg) Pt. Loc: ?ED ?BSA: ?1.76 Study Date: ?? 11/04/2021 ?Pt. Type: Inpatient Tape: ? Referring: Horace Nielsen Referring: Uday Alves ([id number]) Reading: Noah Moreira ??([id number]) Headwaiter/Headwaitress: Gunnar Castañeda RDCS Diagnosis: *Cardiac arrest, cause unspecified (I46.9) * [...] Vmax ?0.73 ? m/sec ? MV deceleration [id number] ? msec ? MV A-wave Vmax ?0.76 [...] 11/04/2021 12:58:08 Images reviewed and interpretation verified [facility] Cardiac Ultrasound [facility] Procedure Note Noah Moreira MD - 11/04/2021 Procedure: Transthoracic Echocardiogram Patient: KAMRON Torres DOB(Age): 1985(36y) Med Rec#: [id number] Sex: F [place] [facility] [place]t / Wt: 163(cm)/70(kg) Pt. Loc: ED BSA: 1.76 Study Date: 11/04/2021 Pt. Type: Inpatient Tape: Referring: Horace Nielsen Referring: Uday Alves ([id number]) Reading: Harish Noah M ([id number]) Headwaiter/Headwaitress: Gunnar Castañeda OLGA Diagnosis: *Cardiac arrest, cause unspecified (I46.9) * [...] MV E-wave Vmax 0.73 m/sec MV deceleration doct268.12 msec MV A-wave Vmax 0.76 m/sec MV [...] 11/04/2021 12:58:08 Images reviewed and interpretation verified [facility]ound [facility] Horace Nielsen MD ECHO ORDERABLES * Intubation (11/04/2021 10:51 AM EST) Narrative Horace Nielsen MD - 11/04/2021 10:51 AM EST Dudley Owens MD ? 11/04/2021 10:55 AM Intubation Date/Time: 11/04/2021 10:51 AM Performed by: Dudley Owens MD Authorized by: Yohannes Dhillon MD Pierz Protocol: ??Emergent situation ?Patient identity confirmed: ??Arm band ??Time out: Immediately prior to the procedure a time out was called ?? A time out verifies correct patient, procedure, equipment, geophysical support specialist and site/side marked as required: [...] Arterial Line (11/04/2021 10:42 AM EST) Narrative Hoarce Nielsen MD - 11/04/2021 10:42 AM EST Dudley Owens MD ? 11/04/2021 10:55 AM Arterial Line Date/Time: 11/04/2021 10:42 AM Performed by: Dudley Owens MD Authorized by: Horace Nielsen MD Pierz Protocol: ??Emergent situation ?Patient identity confirmed: ??Arm band ??Time out: Immediately prior to the procedure a time out was called ?? A time out verifies correct patient, procedure, equipment, geophysical support specialist and site/side marked as required: [...] your imaging first. ? Electronically signed by: JIM CARL MD, [facility] ([phone]), at 11/04/2021 10:17 AM Narrative 11/04/2021 10:17 AM EST EXAMINATION: XR [...] requested your imaging first. Electronically signed by: JIM CARL MD, [facility]([phone]), at 11/04/2021 10:17 AM Horace Nielsen MD IMG DX ORDERABLES * [...] your imaging first. ? Electronically signed by: JIM CARL MD, [facility] ([phone]), at 11/04/2021 10:18 AM Narrative 11/04/2021 10:18 AM EST EXAMINATION: XR [...] requested your imaging first. Electronically signed by: JIM CARL MD, [facility]([phone]), at 11/04/2021 10:18 AM Horace Nielsen MD IMG DX ORDERABLES * [...] your imaging first. ? Electronically signed by: JIM CARL MD, [facility] ([phone]), at 11/04/2021 9:52 AM Narrative 11/04/2021 9:52 AM EST EXAMINATION: CTA [...] requested your imaging first. Electronically signed by: JIM CARL MD, [facility]([phone]), at 11/04/2021 9:52 AM Horace Nielsen MD [facility] CT ORDERABLES * CT Head wo Contrast [...] your imaging first. ? Electronically signed by: Alejo Garcia MD, [facility] ([phone]), at 11/04/2021 9:55 AM Narrative 11/04/2021 9:55 AM EST EXAMINATION: CT [...] requested your imaging first. Electronically signed by: Alejo Garcia MD, [facility]([phone]), at 11/04/2021 9:55 AM Horace Nielsen MD IMG CT ORDERABLES * (ABNORMAL) BLOOD GAS 2 ARTERIAL (11/04/2021 8:43 AM EST) pH, Arterial 7.23(Crit ical) 7.35 - 7.45 [facility] Comment: Critical notified to Dr. Maria Luz Dong by instrument technician immediately following run time. PCO2, Arterial 44 35 - 45 mmHg [facility] PO2, Arterial 199(H) 85 - 104 mmHg [facility] Bicarbonate, Arterial 18.1(L) 20.0 - 26.0 mmol/L [facility] Base Excess, Arterial -9.4(L) -3.0 - 3.0 mmol/L [facility] Hgb Blood Gas 11.8 11.7 - 15.5 g/dL [facility] Oxyhemoglobin, Arterial 97.3(H) 94.0 - 97.0 % [facility] Carboxyhemoglobi n, Arterial 0.3 % [facility] Comment: Nonsmokers: 0.5-1.5% COHB Smokers: Variable, but usually less than 10% Toxic: 20-30% COHB Lethal: Greater than 60% COHB Methemoglobin, Arterial 0.6 <=1.5 % [facility] Na Whole Blood 139 135 - 145 mmol/L [facility] K Whole Blood 4.0 3.5 - 5.0 mmol/L [facility] Comment: Please note: Patients with WBC >100,000 may have falsely elevated Potassium levels. Contact the Clinical Chemistry Laboratory if there are any questions. ICa Whole Blood 1.11(L) 1.15 - 1.33 mmol/L [facility] Comment: Note: ??Total bilirubin higher than 20 mg/dL may lead to falsely low ionized calcium. CL Whole Blood 108(H) 98 - 107 mmol/L [facility] Gluc Whole Bld 128 65 - 199 mg/dL [facility] Comment:Diabetes: >=200 mg/d L plus symptoms. Lactate WB 2.2 0.5 - 2.2 mmol/L [facility] Blood 11/04/2021 8:43 AM EST 11/04/2021 8:43 AM EST Horace Nielsen MD POINT OF CARE TEST ORDERABLES Performing Organization Address City/State/[facility] Co de Phone Number [facility] [place] [address] * (ABNORMAL) Urinalysis Microscopic Exam (11/04/2021 8:40 AM EST) RBC, Urine 1 0 - 4 /HPF [facility] WBC, Urine 2 0 - 5 /HPF [facility] Squamous Epithelial Cells Raw Data, Urine 4 <=4 /HPF [facility] Hyaline Casts, Urine 7(H) 0 - 2 /LPF [facility] Indwelling Catheter Urine 11/04/2021 8:40 AM EST 11/04/2021 9:06 AM EST Narrative Resulting Agency Comment Spec In Lab Horace Nielsen MD URINE ORDERABLES [facility] [place] [address] * (ABNORMAL) Rapid Drug Screen w/o Confirmation, Urine (11/04/2021 8:40 AM EST) Barbiturates Screen, Urine None Detected None Detected [facility] Comment: The barbiturate screen detects barbiturates [...] Benzodiazepines Screen, Urine Presumptive Pos(A) None Detected [facility] Comment: The benzodiazepines screen detects benzodiazepines [...] Cocaine Screen, Urine None Detected None Detected [facility] Comment: The cocaine metabolites screen detects benzoylecgonine (Cocaine Metabolite) at concentrations >150 ng/mL. A ? Presumptive Positive? result indicates that the screening result was positive but has not yet been confirmed by a highly-specific method. As with any screen, occasional false positive results from cross-reacting substances may occur. Not for Medico-Legal Purposes. Methadone Metabolites Screen, Urine None Detected None Detected [facility] Comment: The methadone metabolite screen detects EDDP (major methadone metabolite) at concentrations >100 ng/mL. A ? Presumptive Positive? result indicates that the screening result was positive but has not yet been confirmed by a highly-specific method. As with any screen, occasional false positive results from cross-reacting substances may occur. Not for Medico-Legal Purposes. Opiate Screen, Urine None Detected None Detected [facility] Comment: The opiates screen detects opiates [...] Cannabinoid Screen, Urine None Detected None Detected [facility] Comment: The marijuana metabolites screen detects the THC metabolite (93-csz-5-carboxy-delta 9-THC) at concentrations >20 ng/mL. A ? Presumptive Positive? result indicates that the screening result was positive but has not yet been confirmed by a highly-specific method. As with any screen, occasional false positive results from cross-reacting substances may occur. Not for Medico-Legal Purposes. Oxycodone Screen, Urine None Detected None Detected [facility] Comment: The oxycodone screen detects oxycodone and oxymorphone at concentrations >100 ng/mL. A ? Presumptive Positive? result indicates that the screening result was positive but has not yet been confirmed by a highly-specific method. As with any screen, occasional false positive results from cross-reacting substances may occur. Not for Medico-Legal Purposes. Buprenorphine Screen, Urine None Detected None Detected [facility] Comment: The buprenorphine screen detects buprenorphine at concentrations >5 ng/mL. A ? Presumptive Positive? result indicates that the screening result was positive but has not yet been confirmed by a highly-specific method. As with any screen, occasional false positive results from cross-reacting substances may occur. Not for Medico-Legal Purposes. Fentanyl Screen, Urine None Detected None Detected [facility] Comment: The fentanyl screen detects fentanyl at concentrations >2 ng/mL. A ? Presumptive Positive? result indicates that the screening result was positive but has not yet been confirmed by a highly-specific method. As with any screen, occasional false positive results from cross-reacting substances may occur. Not for Medico-Legal Purposes. Tricyclics Screen, Urine None Detected None Detected [facility] Comment: The tricyclics screen detects tricyclic [...] Ethanol Screen, Urine None Detected None Detected [facility] Comment:This urine ethanol a ssay detects ethanol at concentrations >/= 100 mg/L. Amphetamines Screen, Urine None Detected None Detected [facility] Comment: The amphetamine screen detects d-amphetamine and d-methamphetamine at concentrations >300 ng/mL. A ? Presumptive Positive? result indicates that the screening result was positive but has not yet been confirmed by a highly-specific method. As with any screen, occasional false positive results from cross-reacting substances may occur. Not for Medico-Legal Purposes. Adulterants Screen, Urine None Detected None Detected [facility] Comment: No adulteration or dilution of this urine sample was detected. All urine samples submitted for urine drugs of abuse analysis are tested for creatinine concentration, pH, and for the presence of oxidants, nitrites, and chromate. Urine 11/04/2021 8:40 AM EST 11/04/2021 9:06 AM EST Narrative Resulting Agency Comment Spec In Lab Horace Nielsen MD CHEMISTRY ORDERABL ES Performing Organization Address City/State/[facility] Co de Phone Number [facility] [place] [address] * (ABNORMAL) Urinalysis with reflex Culture (11/04/2021 8:40 AM EST) Glucose, Urine Dipstick Negative Negative mg/dL [facility] Protein, Urine Dipstick 100(A) Negative mg/dL [facility] Bilirubin, Urine Dipstick Negative Negative mg/dL [facility] Comment: Clinical correlation required for positive Urine Bilirubin results as false positive may occur with some drugs and drug related products. If a false positive is suspected a serum total bilirubin should be considered if clinically indicated. Urobilinogen, Urine Dipstick Normal Normal mg/dL [facility] pH, Urn (dipstick) 6.5 5.0 - 8.0 [facility] Blood, Urine Dipstick Trace(A) Negative mg/dL [facility] Ketone, Urine Dipstick Negative Negative mg/dL [facility] Nitrite, Urine Dipstick Negative Negative [facility] Leukocytes, Urine Dipstick Negative Negative [facility] Appearance, Urine Dipstick Clear Clear [facility] Specific [place] Urine Automated 1.020 1.005 - 1.030 [facility] Color, Urine Dipstick Yellow Yellow [facility] Reflex to Culture No [facility] Indwelling Catheter Urine 11/04/2021 8:40 AM EST 11/04/2021 9:06 AM EST Narrative Resulting Agency Comment Spec In Lab Horace Nielsen MD URINE ORDERABLES [facility] [place] [address] * POCT urine (11/04/2021 8:40 AM EST) POC Urine HCG Negative Negative - Negative POC Control Internal Controls Acceptable 11/04/2021 8:40 AM EST Horace Nielsen MD POINT OF CARE TEST ORDERABLES * Rapid Drug Screen, Urine (DAVID Request) (11/04/2021 8:40 AM EST) DAVID Conf Requested No [facility] Comment: Collection date/time has been modified to: 08:40:00. ??Previous collection date/time: 07:37:00. Corrected from No [NA] on 11/04/21 9:06:46 EST by Horace Jaramillo Requested See Comment [facility] Comment: Refer to Rapid Drug Screen w/o Confirmation, Urine for results. Collection date/time has been modified to: 08:40:00. ??Previous collection date/time: 07:37:00. Corrected from See Comment [NA] on 11/04/21 9:06:46 EST by Horace Jaramillo Urine 11/04/2021 8:40 AM EST 11/04/2021 9:06 AM EST Narrative Resulting Agency Comment Spec In Lab Horace Nielsen MD URINE ORDERABLES Performing Organization Address [facility] Co de Phone Number [facility] [place] [address] * EKG 12 Lead (11/04/2021 7:37 AM EST) Ventricular rate 118 BPM MUSE SYSTEM Atrial Rate 118 BPM MUSE SYSTEM P-R Interval 134 ms MUSE SYSTEM QRS Duration 86 ms MUSE SYSTEM Q-T Interval 346 ms MUSE SYSTEM QTC Calculated (Bezet) 484 ms MUSE SYSTEM Calculated P [place] 43 degrees MUSE SYSTEM Calculated R [place] 32 degrees MUSE SYSTEM Calculated T [place] 25 degrees MUSE SYSTEM INTERPRETATION Sinus tachycardia Otherwise normal ECG When compared with ECG of 10-OCT-2021 17:09, Left posterior fascicular block is no longer Present Confirmed by MD Elicia, Bertin ([id number]) on 11/06/2021 9:27:47 PM MUSE SYSTEM 11/04/2021 7:37 AM EST 11/06/2021 9:27 PM EST Unknown ECG ORDERABLES Performing Organization Address City/[facility]/ZIP Co de Phone Number MUSE SYSTEM * CK (11/04/2021 7:35 AM EST) Creatine Kinase 135 0 - 160 unit/L [facility] Blood Venous Draw / Unknown 11/04/2021 7:35 AM EST 11/04/2021 7:52 AM EST Narrative Resulting Agency Comment Spec In Lab Horace Nielsen MD CHEMISTRY ORDERABL ES Performing Organization Address [facility] Co de Phone Number [facility] [place] [address] * Triglyceride (11/04/2021 7:35 AM EST) Triglyceride 130 mg/dL [facility] Comment: Average Risk/Lower Risk: <150 mg/dL Borderline High Risk: 150-199 mg/dL High Risk: 200-499 mg/dL Very High Risk: >mi=432 mg/dL Blood Venous Draw / Unknown 11/04/2021 7:35 AM EST 11/04/2021 7:52 AM EST Narrative Resulting Agency Comment Spec In Lab Horace Nielsen MD CHEMISTRY ORDERABL ES Performing Organization Address [facility] de Phone Number [facility] [place] [address] * Scan, Peripheral Blood (11/04/2021 7:35 AM EST) Plat estimate Normal [facility] RBC Morphology Abnormal [facility] Hypochromia Slight [facility] Blood 11/04/2021 7:35 AM EST 11/04/2021 7:48 AM EST Narrative Resulting Agency Comment Spec In Lab Horace Nielsen MD HEMATOLOGY ORDERAB LES Performing Organization Address [facility] Co de Phone Number [facility] [place] [address] * (ABNORMAL) Osmolality (11/04/2021 7:35 AM EST) Osmolality 306(H) 275 - 295 mOsm/kg [facility] Blood Venous Draw / Unknown 11/04/2021 7:35 AM EST 11/04/2021 7:52 AM EST Narrative Resulting Agency Comment Spec In Lab Horace Nielsen MD CHEMISTRY ORDERABL ES Performing Organization Address [facility] Co de Phone Number [facility] [place] [address] * (ABNORMAL) D-Dimer, Quantitative (11/04/2021 7:35 AM EST) D-Dimer 5,001(H) 0 - 500 FEU ng/ml [facility] Comment: The D-Dimer assay is used [...] MD HEMATOLOGY ORDERAB LES Performing Organization Address [facility] Co de Phone Number [facility] [place] [address] * Gold Tube HOLD (11/04/2021 7:35 AM EST) Gold Hold Sample in lab. [facility] Blood Venous Draw / Unknown 11/04/2021 7:35 AM EST 11/04/2021 7:53 AM EST Horace Nielsen MD CHEMISTRY ORDERABL ES Performing Organization Address [facility] Co de Phone Number [facility] [place] [address] * Blue Tube HOLD (11/04/2021 7:35 AM EST) Blue Hold Sample in lab. [facility] Blood Venous Draw / Unknown 11/04/2021 7:35 AM EST 11/04/2021 7:49 AM EST Horace Nielsen MD HEMATOLOGY ORDERAB LES Performing Organization Address [facility] Co de Phone Number [facility] [place] [address] * (ABNORMAL) Differential, Automated (11/04/2021 7:35 AM EST) Neutrophil % 72.9 % [facility] Neutrophil Absolute 18.66(H) 1.70 - 6.10 x10(3)/ L [facility] Lymph % 19.3 % [facility] Lymphocytes Abs 4.9(H) 0.9 - 3.2 x10(3)/mc L [facility] Monocyte % 4.2 % [facility] Monocyte Abs 1.1(H) 0.3 - 0.9 x10(3)/ L [facility] Eos % 1.9 % [facility] Eosinophils Abs 0.5(H) 0.0 - 0.4 x10(3)/[facility] Basophil % 0.5 % [facility] Baso Absolute 0.1 0.0 - 0.1 x10(3)/ L [facility] Immature Gran % 1.20 % [facility] Comment: Immature granulocytes(IG's)percentage and absolute count will include metamyelocytes, myelocytes, and promyelocytes. Blood smears from CBCs yielding IG's will be scanned manually for concordance. If this scan disagrees with the automated IG or if promyelocytes are noted, a manual differential will be performed. Immature Gran Absolute 0.30(H) 0.00 - 0.04 x10(3)/ L [facility] Blood 11/04/2021 7:35 AM EST 11/04/2021 7:48 AM EST Narrative Resulting Agency Comment Spec In Lab Horace Nielsen MD HEMATOLOGY ORDERAB LES [facility] [place] [address] * (ABNORMAL) Hemogram (11/04/2021 7:35 AM EST) [facility] White Blood Cell 25.6(H) 4.0 - 9.5 x10(3)/ L [facility] Red Blood Cell 4.96 4.00 - 5.21 x10(6)/mc L [facility] Hemoglobin 12.9 11.7 - 15.5 g/dL [facility] Hematocrit 43.1 35.7 - 45.8 % [facility] Mean Cell Volume 86.9 82.6 - 94.4 fL [facility] Comment: This result has been called to NOT CALLED by Aminah Mojica on 11 04 2021 at 0816, and has not been read back. Mean Cell Hemoglobin 26.0(L) 27.1 - 32.0 pg [facility] [facility] Mean Cell Hemoglobin Concentration 29.9(L) 31.7 - 35.0 g/dL [facility] Platelet 298 145 - 357 x10(3)/[facility] LABORATORY RDW Standard Deviation 51.5(H) 37.0 - 46.0 [facility] LABORATORY RDW coefficient of variation 16.5(H) 11.5 - 14.1 % [facility] Mean Platelet Volume 11.5 7.6 - 12.9 [facility] LABORATORY NRBC% auto 0.0 % [facility] NRBC Absolute 0.000 0.000 - 0.000 x10(3)/[facility] LAB[facility] Blood 11/04/2021 7:35 AM EST 11/04/2021 7:48 AM EST Narrative Resulting Agency Comment Spec In Lab Horace Nielsen MD HEMATOLOGY ORDERAB LES [facility] [place] [address] * COVID-19 PCR (11/04/2021 7:35 AM EST) [facility] SARS-CoV-2 RNA (Rapid) Not Detected Not Detected [facility] Comment: This result should be interpreted [...] using the Simplexa COVID-19 Direct Assay by [employer] as authorized by the FDA issued Emergency [...] Department of Pathology and Laboratory Medicine at [facility], certified under the Clinical Laboratory Improvement Amendments [...] fact sheets at the following FDA website: https://www.fda.gov/medical-devices/yklnmzupqui-qdmeuct-4576-khsvy-20-lvwpbvrry- use-a wnxorwkypsdce-ckdstos-zufbopz/zntcn-cagrxrlpewo-nxug SARS-CoV-2 Source RESILIENT TILE INSTALLER Swab MA RY [facility] Nasopharyngeal Swab 11/04/19 7:35 AM EST 11/04/2021 10:06 AM EST Comment:Symptoms->COVID-19 S uspected Narrative Resulting Agency Comment Spec In Lab Horace Nielsen MD MICROBIOLOGY - GEN ERAL ORDERABLES Performing Organization Address [facility] Phone Number [facility] [place] [address] * Ethanol Level (11/04/2021 7:35 AM EST) Ethanol <100 <=99 mg/L [facility] Comment: Greater than 800 mg/L (0.08%) should be considered intoxicated. 3400 to 4500 mg/L (0.34 - 0.45%) is considered severe intoxication. Greater than 5500 mg/L (0.55%) is usually fatal. Blood 11/04/2021 7:35 AM EST 11/04/2021 7:48 AM EST Narrative Resulting Agency Comment Spec In Lab Horace Nielsen MD CHEMISTRY ORDERABL ES Performing Organization Address [facility] Phone Number [facility] [place] [address] * Salicylate (11/04/2021 7:35 AM EST) Salicylate <3 mg/L [facility] Comment: Therapeutic Range: ??< 200 mg/L Arthritic Therapy: ??150-300 mg/L Toxic: ?> 350 mg/L ??Concentrations > 500 mg/L may be an indication for alkalinization of urine. Concentrations > 800 mg/L are often an indication for hemodialysis. Blood 11/04/2021 7:35 AM EST 11/04/2021 7:48 AM EST Narrative Resulting Agency Comment Spec In Lab Horace Nielsen MD CHEMISTRY ORDERABL ES Performing Organization Address [facility] de Phone Number [facility] [place] [address] * (ABNORMAL) Acetaminophen level (11/04/2021 7:35 AM EST) Acetamin Lvl <5(L) 10 - 30 mg/L [facility] Comment: Levels >150 mg/L at 4 hours post ingestion or >75 mg/L at 8 hours post ingestion are often an indication for N-Acetylcysteine. Blood 11/04/2021 7:35 AM EST 11/04/2021 7:48 AM EST Narrative Resulting Agency Comment Spec In Lab Horace Nielsen MD CHEMISTRY ORDERABL ES Performing Organization Address [facility] Phone Number [facility] [place] [address] * (ABNORMAL) Phosphorus (11/04/2021 7:35 AM EST) Phosphorus 6.2(H) 2.5 - 4.5 mg/dL [facility] Blood 11/04/2021 7:35 AM EST 11/04/2021 7:48 AM EST Narrative Resulting Agency Comment Spec In Lab Horace Nielsen MD CHEMISTRY ORDERABL ES Performing Organization Address [facility] Phone Number [facility] [place] [address] * Magnesium (11/04/2021 7:35 AM EST) Magnesium 1.04 0.69 - 1.07 mmol/L [facility] Blood 11/04/2021 7:35 AM EST 11/04/2021 7:48 AM EST Narrative Resulting Agency Comment Spec In Lab Horace Nielsen MD CHEMISTRY ORDERABL ES Performing Organization Address [facility] Co de Phone Number [facility] [place] [address] * (ABNORMAL) Troponin (11/04/2021 7:35 AM EST) Troponin-T 0.02(H) 0.00 - 0.00 ng/mL [facility] Comment: Called by: MAYDA, Read back by: Gabriela Astorga, Date/Time:11/04/21 08:25. The 99th percentile for Troponin T is less than 0.01 ng/mL, any detectable cTnT concentration using this assay should be considered elevated. According to the third universal definition of myocardial infarction the following criteria with a clinical presentation consistent with acute myocardial ischemia meets the diagnosis for a myocardial infarction (MA). Detection of a rise and/or fall of cTnT, with at least one value greater than the 99th percentile (> or = 0.01) and with at least one of the following ?? Symptoms of ischemia ?? New or presumed new significant SU-bnazkbf-E wave (ST-T) changes or new left bundle [...] additional sample may be indicated. Reference: Third Pierz Definition of Myocardial Infarction. Journal of the [place] [employer] 2012;60:1581-98 Blood 11/04/2021 7:35 AM EST 11/04/2021 7:48 AM EST Narrative Resulting Agency Comment Spec In Lab Horace Nielsen MD CHEMISTRY ORDERABL ES [facility] [place] [address] * (ABNORMAL) Comprehensive metabolic panel (non-fasting) (11/04/2021 7:35 AM EST) [facility] Glucose 196 65 - 199 mg/dL [facility] Comment:Diabetes: >=200 mg/d L plus symptoms Blood Urea Nitrogen 20(H) 8 - 18 mg/dL [facility] Creatinine 1.55(H) 0.70 - 1.20 mg/dL [facility] Sodium 140 135 - 145 mmol/L [facility] Potassium 5.1(H) 3.5 - 5.0 mmol/L [facility] Comment: Please note: ??Patients with WBC >100,000 may have falsely elevated Potassium levels. ??For accurate Potassium quantification in these patients send serum separator tube (gold top) for subsequent determinations. ??Contact the Clinical Chemistry Laboratory if there are any questions. Chloride 104 98 - 107 mmol/L [facility] Carbon Dioxide 19(L) 22 - 31 mmol/L [facility] Anion Gap 17(H) 5 - 15 mmol/L [facility] Calcium 9.4 8.5 - 10.5 mg/dL [facility] Protein, Total 6.8 6.1 - 8.0 g/dL [facility] Albumin 4.4 3.2 - 5.2 g/dL [facility] Aspartate Aminotransferase 72(H) 0 - 30 unit/L [facility] Alanine Aminotransferase 79(H) 0 - 30 unit/L [facility] Alkaline Phosphatase 88 35 - 105 unit/L [facility] Bilirubin, Total 0.2 0.2 - 1.3 mg/dL [facility] Est Glomerular Filtration Rate 42(L) >=60 mL/min/1. 73 m?? [facility] Comment: This patient? s estimated [...] Lab Horace Nielsen MD CHEMISTRY ORDERABL ES [facility] [place] [address] * (ABNORMAL) BLOOD GAS 2 VENOUS (11/04/2021 7:33 AM EST) pH, Venous 7.09(Criti cindy) 7.32 - 7.42 [facility] Comment:Noted by instrument technician. PCO2, Venous 66(Critica l) 41 - 51 mmHg [facility] Comment:Noted by instrument technician. PO2, Venous 31 25 - 40 mmHg [facility] Bicarbonate, Venous 19.7 mmol/L [facility] Base Excess, Venous -10.1 mmol/L [facility] Hgb Blood Gas 13.6 11.7 - 15.5 g/dL [facility] Oxyhemoglobin, Venous 40.0 % [facility] Carboxyhemoglob in, Venous 1.8 % [facility] Comment: Nonsmokers: 0.5-1.5% COHB Smokers: Variable, but usually less than 10% Toxic: 20-30% COHB Lethal: Greater than 60% COHB Methemoglobin, Venous 0.5 <=1.5 % [facility] Na Whole Blood 142 135 - 145 mmol/L [facility] K Whole Blood 4.5 3.5 - 5.0 mmol/L [facility] Comment: Please note: Patients with WBC >100,000 may have falsely elevated Potassium levels. Contact the Clinical Chemistry Laboratory if there are any questions. ICa Whole Blood 1.25 1.15 - 1.33 mmol/L [facility] Comment: Note: ??Total bilirubin higher than 20 mg/dL may lead to falsely low ionized calcium. CL Whole Blood 102 98 - 107 mmol/L [facility] Gluc Whole Bld 189 65 - 199 mg/dL [facility] Comment:Diabetes: >=200 mg/d L plus symptoms Lactate WB 6.5(Critic al) 0.5 - 2.2 mmol/L [facility] Comment:Noted by instrument technician. Blood Gas Source Venous [facility] Blood 11/04/2021 7:33 AM EST 11/04/2021 7:[address] Chio Gonzalez MD POINT OF CARE TEST O RDERABLES [facility] [place] [address] * US Cardiac (POCUS) (11/04/2021 7:25 AM [...] normal RV size, normal valves. CPT Code 84803:Limited Basic Cardiac (96590) Electronically Signed by the following Performing: ?on [...] LVEF, normal RV size,normal valves. CPT Code 93692:Limited Basic Cardiac (26261) Electronically Signed by the following Performing: on 12:02Attending: Horace Nielsen on 12:02 PDF Horace Nielsen MD EA IMAGES documented in this encounter Visit Diagnoses Not on filedocumented in this encounter Admitting Diagnoses Diagnosis Cardiac [...] Given 11/13/2021 5:28 PM EST 650 mg alum-mag hydroxide-simeth (Maalox) (40 mg-40 mg-4 mg/mL) oral liquid 10 mL 10 mL, Oral, 3 TIMES DAILY PRN, Starting on Tu11/13/21 at 0921, Until Fri11/14/21 at 1827, Heartburn, Routine amLODIPine (Norvasc) tablet 10 mg 10 mg, Oral, DAILY, First dose (after last modification) on Jenelle 11/08/21 at 1100, Until Discontinued, Routine Given 11/14/2021 9:04 AM EST 10 mg Given 11/13/2021 9:15 AM EST 10 mg Given 11/12/2021 8:33 AM EST 10 mg atorvastatin (Lipitor) tablet 40 mg 40 mg, Oral, EVERY EVENING, First dose on 11/05/21 at 1700, Until Discontinued, Routine Given 11/13/2021 5:28 PM EST 40 mg Given 11/12/2021 5:18 PM EST 40 mg Given 11/12/2021 5:02 PM EST 40 mg chlorhexidine (Peridex) 0.12 % oral solution 15 mL 15 mL, Oral, 2 TIMES DAILY, First dose on Fri11/04/21 at 0911, Until Discontinued, Routine Given 11/13/2021 9:51 PM EST 15 mLs Given 11/12/2021 8:38 PM EST 15 mLs Given 11/12/2021 8:34 AM EST 15 mLs clonazePAM (KlonoPIN) tablet 0.5 mg 0.5 mg, [...] Given 11/13/2021 9:15 AM EST 1 mg famotidine (Pepcid) tablet 20 mg 20 mg, Oral, 2 TIMES DAILY, First dose on Fri11/04/21 at 0911, Until Discontinued, Routine Given 11/14/2021 9:02 AM EST 20 mg Given 11/13/2021 9:50 PM EST 20 mg Given 11/13/2021 9:15 AM EST 20 mg hydrOXYzine (Atarax) tablet 50 mg 50 mg, Oral, 3 TIMES DAILY PRN, Starting on Fri11/11/21 at 1806, Until Fri11/14/21 at 1827, Anxiety, [...] Given 11/13/2021 12:48 PM EST 600 mg lidocaine (Lidoderm) 5% patch 3 patch 3 [...] 0430, Until Discontinued, Remove lidocaine 5% patch lisinopriL (Zestril) tablet 20 mg 20 mg, Oral, DAILY, First dose (after last modification) on Fri11/10/21 at 0900, Until Discontinued, Routine Given 11/14/2021 9:02 AM EST 20 mg Given 11/13/2021 9:15 AM EST 20 mg Given 11/12/2021 8:34 AM EST 20 mg methyl salicylate-menthoL (Bengay) 15-10 % cream Topical (Top), 2 TIMES DAILY PRN, for arm pain/soreness, Starting on 11/11/21 at 1731, Until Fri11/14/21 at 1827 Given 11/11/2021 9:18 PM EST nitroGLYcerin (Nitrostat) disintegrating tablet 0.4 mg 0.4 [...] Given 11/13/2021 9:55 AM EST 0.4 mg ondansetron (Zofran) tablet 4 mg 4 mg, Oral, DAILY PRN, Starting on 11/11/21 at 1807, Until Fri11/14/21 at 1827, Nausea, Vomiting, Routine Given 11/13/2021 4:03 AM EST 4 mg Given 11/11/2021 6:16 PM EST 4 mg prazosin (Minipress) capsule 2 mg 2 mg, Oral, NIGHTLY, First dose on Fri11/09/21 at 2100, Until Discontinued, Routine Given 11/13/2021 9:50 PM EST 2 mg Given 11/12/2021 8:27 PM EST 2 mg Given 11/11/2021 9:24 PM EST 2 mg senna (Senokot) tablet 8.6 mg 8.6 mg, [...] on 11/04/21 at 2100, Until Discontinued, Routine Given 11/13/2021 9:51 PM EST 5 mLs Given 11/12/2021 8:31 PM EST 5 mLs Given 11/12/2021 8:34 AM EST 5 mLs white petrolatum-mineral oiL (Eucerin) cream Topical (Top), [...] on Fri11/08/21 at 1100, Until Discontinued, Routine 0833 (Given - Provider: Erendira Giron RN)1328 (DEC Hold - Provider: Admin Adt - Reason: Transfer to a Procedural area)1633 (MAR Unhold - Provider: Admin Adt) 0915 (Given - Provider: Erendira Giron RN) 0904 (Given - Provider: Erendira Giron RN) atorvastatin (Lipitor) tablet 40 mg 40 mg, Oral, EVERY EVENING, First dose on Fri11/05/21 at 1700, Until Discontinued, Routine 1328 (MAR [...] RN - Comment: due at 1630 per mar, auto held d/t procedure.)1733 (Stopped - Provider: [...] 0834 (Given - Provider: Erendira Giron RN)1328 (MAR Hold [...] 0834 (Given - Provider: Erendira Giron RN)1328 ([facility] Hold - Provider: Admin Adt - Reason: Transfer to a Procedural area)163 ([facility] Unhold - Provider: Admin Adt)2037 (Given - Provider: Aura Lamas RN) 09 (Given - Provider: Erendira Giron RN)2149 (Given - Provider: Aura Lamas RN) 09 (Given - Provider: Erendira Giron RN) famotidine (Pepcid) tablet 20 mg 20 mg, Oral, 2 TIMES DAILY, First dose on Fri11/04/21 at 0911, Until Discontinued, Routine 0833 (Given - Provider: Erendira Giron RN)1328 ([facility] Hold - Provider: Admin Adt - Reason: Transfer to a Procedural area)163 ([facility] Unhold - Provider: Admin Adt)2026 (Given [...] 0833 (Given - Provider: Erendira Giron RN)1328 ([facility] Hold - Provider: Admin Adt - Reason: Transfer to a Procedural area)163 ([facility] Unhold - Provider: Admin Adt)2025 (Given [...] (Patch Applied - Provider: Danae Lowe RN)1328 (MAR Hold - Provider: Admin Adt - Reason: Transfer to a Procedural area)1633 (MAR Unhold - Provider: Admin Adt) 0403 (Patch Applied - Provider: Aura Lamas RN) 0437 (Patch Applied - Provider: Aura Lamas RN) lidocaine (Lidoderm) topical patch REMOVAL(Linked Group 1) Transdermal, EVERY 24 HOURS, First dose on Fri11/07/21 at 0430, Until Discontinued, Remove lidocaine 5% patch 1328 (MAR Hold - Provider: Admin Adt - Reason: Transfer to a Procedural area)1633 (MAR Unhold - Provider: Admin Adt)1700 (Patch Removed - Provider: Erendira Giron RN) 1700 (Patch Removed - Provider: Erendira Giron RN) lisinopriL (Zestril) tablet 20 mg 20 mg, Oral, DAILY, First dose (after last modification) on Fri11/10/21 at 0900, Until Discontinued, Routine 0834 (Given - Provider: Erendira Giron RN)1328 ([facility] Hold - Provider: Admin Adt - [...] Fri11/09/21 at 2100, Until Discontinued, Routine 1328 (MAR Hold - Provider: Admin Adt - Reason: Transfer to a Procedural area)1633 (MAR Unhold - Provider: Admin Adt)202 (Given - Provider: Arua Lamas RN) 2150 (Given - Provider: Aura Lamas RN) sodium chloride 0.9 % (flush) (BD PosiFlush Normal Saline 0.9) flush 5 mL 5 mL, Intravenous, 2 TIMES DAILY, First dose on 11/04/21 at 2100, Until Discontinued, Routine 0834 (Given - Provider: Erendira Giron RN)1328 ([facility] Hold - Provider: Admin Adt - Reason: Transfer to a Procedural area)163 ([facility] Unhold - Provider: Admin Adt)2030 (Given - Provider: Aura Lamas RN) 09 (Not Given - Provider: Erendira Giron RN - Reason: See comment - Comment: duplicate)2150 (Given - Provider: Aura Lamas RN) 09 (Not Given - Provider: Erendira Giron RN - Reason: See comment - Comment: duplicate) white petrolatum-mineral oiL (Eucerin) cream Topical (Top), EVERY 8 HOURS SCHEDULED, First dose on 11/04/21 at 1400, Until Discontinued 0600 (Not Given - Provider: Danae Lowe RN - Reason: Contraindicated)1328 ([facility] Hold - Provider: Admin Adt - Reason: Transfer to a Procedural area)1400 (Not Given - Provider: Erendira Giron RN - Reason: Transfer to a Procedural area)163 ([facility] Unhold - Provider: Admin Adt)2200 (Not Given - Provider: Aura Lamas RN [...] Discontinued 0900 (Not Given - Provider: Erendira Giron RN - Reason: Order parameters not met)1328 [...] Aura Lamas RN)1121 (Given - Provider: Erendira Giron RN) alum-mag hydroxide-simeth (Maalox) (40 mg-40 mg-4 mg/mL) [...] 0001 (Given - Provider: Danae Lowe RN)1328 ([facility] Hold - Provider: Admin Adt - [...] - Reason: Transfer to a Procedural area)1633 ([facility] Unhold - Provider: Admin Adt) ibuprofen (Advil) [...] - Reason: Transfer to a Procedural area)1633 ([facility] Unhold - Provider: Admin Adt)1702 (Given - Provider: Erendira Giron RN)1717 (Not Given - Provider: Erendira [...] last 24 to 72 hours., Routine 1328 ([facility] Hold - Provider: Admin Adt - Reason: Transfer to a Procedural area)1633 ([facility] Unhold - Provider: Admin Adt) 0955 (Given - Provider: Erendira Giron, SYBIL) ondansetron (Zofran) tablet 4 mg 4 mg, Oral, DAILY PRN, Starting on 11/11/21 at 1807, Until Fri11/14/21 at 1827, Nausea, Vomiting, Routine 1328 ([facility] Hold - Provider: Admin Adt - Reason: Transfer to a Procedural area)1633 ([facility] Unhold - Provider: Admin Adt) 0403 (Given - Provider: Aura Lamas RN) senna (Senokot) tablet 8.6 mg 8.6 mg, Oral, 2 TIMES DAILY PRN, Starting on 11/05/21 at 1554, Until Fri11/14/21 at 1827, Constipation, Routine 1328 ([facility] Hold - Provider: Admin Adt - Reason: Transfer to a Procedural area)1633 ([facility] Unhold - Provider: Admin Adt) sodium chloride 0.9 % (flush) (BD PosiFlush Normal Saline 0.9) flush 5-20 mL 5-20 mL, Intravenous, EVERY 1 MIN PRN, Starting on 11/04/21 at 1456, Until Fri11/14/21 at 1827, flush, Flush pertains to all indwelling lines. Flush per protocol found in the job aid using the link provided on this medication record., Routine 1328 ([facility] Hold - Provider: Admin Adt - Reason: Transfer to a Procedural area)1633 ([facility] Unhold - Provider: Admin Adt) Linked [...] documented as of this encounter Care Teams Parachute Repairer Relationship Specialty Start Date End Date Kenia Lawrence APRN [address] [place] [address] PCP - General Family Medicine 10/10/21 05/20/22 documented as of this encounter
--- OUTSIDE RECORDS SUMMARY | 2024-09-20 11:15 | XMS_ITS | Encounter Summary ---
Author Organization [facility] [place] [address] Care Team Providers Care Web Machine Tender Name Role Phone Kenia Lawrence APRN Primary Care Provider [phone]- [phone] Encounter Details Date Type Department Care Team (Late st Contact Info) Description 10/12/2021 Interpretation Only [facility] [address] [place] [address] Bandar Roque MD [address] [place] [address] Social History Tobacco Use Types Packs/Day Years [...] EST Routine Obstetrics [place] [id number] Emili Cabrera MD [facility]ERNAL [place] [address] 09/26/2024 6:00 PM EST Appointment [facility] [place] [phone] 10/16/2024 [place] [address] Dudley Aguilar MD [facility] DR OBSTETRICS AND [place] [address] 11/08/2024 10:00 AM EST Hospital Encounter Non-Invasive [place] [phone] Arrived documented as of this encounter Procedures Procedure Name Priority Date/Time Associated Diagnosis Comments XR CHEST ONE VIEW STAT 10/12/2021 1:4 7 PM EST documented in this encounter Results * XR Chest One View (10/12/2021 1:47 PM EST) PT CLASS E RAD ADMITDTTM RAD PT RAD INFO [id number]^B ENEDICT^JESSICA PH^G RAD EXAM DESC XCXR1^XR CHEST 1 VIEW^RIS RAD Anatomical Region Laterality Modality Chest N/A Radiographic Ewa ging Impressions 10/12/2021 2:16 PM EST No active disease in the chest. Thank you for letting us participate in the care of this patient. ??If you are a health care provider and have any questions regarding this report, please contact the number below. ??For patients who have questions please contact the health senior care assistant that requested your imaging first. ? Narrative 10/12/2021 2:16 PM EST EXAMINATION: XR CHEST 1 VIEW CLINICAL HISTORY: CP, SOB TECHNIQUE: PA chest COMPARISON: October 10, 2021 FINDINGS: The visualized lungs are clear and well-expanded. Heart and pulmonary vasculature are normal. No significant osseous abnormality is seen. Procedure Note Nelson Alejandro MD - 10/12/2021 EXAMINATION: XR CHEST 1 VIEW CLINICAL HISTORY: CP, SOB TECHNIQUE: PA chest COMPARISON: October 10, 2021 FINDINGS: The visualized lungs are clear and well-expanded. Heart and pulmonary vasculature are normal. No significant osseous abnormality is seen. IMPRESSION No active disease in the chest. Thank you for letting us participate in the care of this patient. If youare a health care provider and have any questions regarding this report,please contact the number below. For patients who have questions please contactthe health senior care assistant that requested your imaging first. Bandar Roque MD IMG DX ORDERABLES documented in this encounter Visit Diagnoses Not on filedocumented in this encounter Care Teams Web Machine Tender Relationship Specialty Start Date End Date Kenia Lawrence, [employer] [address] [place] [address] PCP - General Family Medicine 10/10/21 05/20/22 documented as of this encounter
--- OUTSIDE RECORDS SUMMARY | 2024-09-20 11:15 | XMS_ITS | Encounter Summary ---
Author Organization [facility] Address [facility] [place] [address] Care Team Providers Care Tunnel Mucker Name Role Phone Unavailable Primary Care Provider Unavailabl e Encounter Details Date Type Department Care Team (Late st Contact Info) Description 07/28/2021 Interpretation Only [address] [phone] Danica Barrios MD [address] [place] [address] Social History Tobacco Use Types Packs/Day Years [...] Routine Obstetrics [place] [address] Emili Cabrera MD [facility] [place] [address] 09/26/2024 6:00 PM EST Appointment [facility] [place] [phone] 10/16/2024 Hospital [place] [phone] Dudley Aguilar MD [facility] [address] OBSTETRICS [place] [address] 11/08/2024 10:00 AM EST Hospital Encounter Non-[place] [phone] Arrived documented as of this encounter Procedures Procedure Name Priority Date/Time Associated Diagnosis Comments CT ABDOMEN AND PELVIS W CONTRAST STAT 07/28/2021 9:42 PM EDT documented in this encounter Results * CT Abdomen & Pelvis w Contrast (07/28/2021 9:42 PM EDT) PT CLASS E RAD ADMITDTTM RAD PT RAD INFO [id number]^C HANDER^SUNEE R RAD EXAM DESC CTAPW^CT ABD AND PELVIS WITH CONTRAS^RIS RAD Anatomical Region Laterality Modality Abdomen, Pelvis Computed Tomogra phy Impressions 07/28/2021 10:25 PM EDT 1. ??No acute infectious/inflammatory process within the abdomen or pelvis. 2. ??Normal terminal ileum and appendix. 3. ??Nonobstructing small 1 to 2 mm left renal calculi. No hydronephrosis. 4. ??Nonspecific trace free fluid in the dependent pelvis with heterogeneous enhancement of the uterus. This can be a normal physiologic finding based on patient's menstrual status. Thank you for letting us participate in the care of this patient. ??If you are a health care provider and have any questions regarding this report, please contact the number below. ??For patients who have questions please contact the health healthcare market consultant that requested your imaging first. ? Narrative 07/28/2021 10:25 PM EDT EXAMINATION: CT ABD AND PELVIS WITH CONTRAS CLINICAL HISTORY: right flank pain TECHNIQUE: Helical CT of the abdomen and pelvis was performed following the intravenous administration of 100 ml of Omnipaque 350. Oral contrast was not administered. COMPARISON: CT of the abdomen and pelvis 05/05/2013 FINDINGS: Lower chest: No focal consolidation. No pleural effusions. Liver: Normal size and attenuation without lesions. Bile ducts: Nondilated. Gallbladder: No calcified gallstones. Normal caliber wall. Pancreas: Normal attenuation without ductal dilatation. Spleen: Normal. Adrenals: Normal. Kidneys: Normal symmetric nephrograms. No hydronephrosis. There are sub-1 cm low-attenuation lesions in both kidneys, too small to characterize but likely representing renal cysts. There are multiple small, 1 to 2 mm nonobstructing calculi within the inferior left kidney best seen on axial series 2 image 46, image 45, image 43 and image 36). No ureteral calculi. Note is made of multiple phleboliths within the dependent pelvis bilaterally. Urinary Bladder: Normal. Vasculature: No abdominal aortic aneurysm. Portal vein is patent. Lymph Nodes: No enlarged lymph nodes. Bowel: Nondilated, no wall thickening. Normal appendix. Normal terminal ileum. Peritoneum and mesentery: There is a small quantity low-attenuation free fluid in the dependent pelvis. No loculated or peripherally enhancing collection to suggest abscess. No mesenteric edema. No free air. Abdominal wall: Normal. Reproductive organs: The uterus is mildly enlarged and demonstrates heterogeneous enhancement with trace fluid within the endometrial canal. Normal size of the bilateral adnexa. Osseous structures: No acute osseous findings. No suspicious osseous lesions. Procedure Note Fausto Ring MD - 07/28/2021 EXAMINATION: CT ABD AND PELVIS WITH CONTRAS CLINICAL HISTORY: right flank pain TECHNIQUE: Helical CT of the abdomen and pelvis was performed followingthe intravenous administration of 100 ml of Omnipaque 350. Oral contrast wasnot administered. COMPARISON: CT of the abdomen and pelvis 05/05/2013 FINDINGS: Lower chest: No focal consolidation. No pleural effusions. Liver: Normal size and attenuation without lesions. Bile ducts: Nondilated. Gallbladder: No calcified gallstones. Normal caliber wall. Pancreas: Normal attenuation without ductal dilatation. Spleen: Normal. Adrenals: Normal. Kidneys: Normal symmetric nephrograms. No hydronephrosis. There are sub-1cm low-attenuation lesions in both kidneys, too small to characterize butlikely representing renal cysts. There are multiple small, 1 to 2 mmnonobstructing calculi within the inferior left kidney best seen on axial series 2 image46, image 45, image 43 and image 36). No ureteral calculi. Note is made ofmultiple phleboliths within the dependent pelvis bilaterally. Urinary Bladder: Normal. Vasculature: No abdominal aortic aneurysm. Portal vein is patent. Lymph Nodes: No enlarged lymph nodes. Bowel: Nondilated, no wall thickening. Normal appendix. Normal terminalileum. Peritoneum and mesentery: There is a small quantity low-attenuation freefluid in the dependent pelvis. No loculated or peripherally enhancing collectionto suggest abscess. No mesenteric edema. No free air. Abdominal wall: Normal. Reproductive organs: The uterus is mildly enlarged and demonstrates heterogeneous enhancement with trace fluid within the endometrial canal.Normal size of the bilateral adnexa. Osseous structures: No acute osseous findings. No suspicious osseouslesions. IMPRESSION 1. No acute infectious/inflammatory process within the abdomen orpelvis. 2. Normal terminal ileum and appendix. 3. Nonobstructing small 1 to 2 mm left renal calculi. Nohydronephrosis. 4. Nonspecific trace free fluid in the dependent pelvis withheterogeneous enhancement of the uterus. This can be a normal physiologic finding basedon patient's menstrual status. Thank you for letting us participate in the care of this patient. If youare a health care provider and have any questions regarding this report,please contact the number below. For patients who have questions please contactthe health healthcare market consultant that requested your imaging first. Danica Barrios MD IMG CT ORDERABLES documented in this encounter Visit Diagnoses Not on filedocumented in this encounter
--- OUTSIDE RECORDS SUMMARY | 2024-09-20 11:15 | XMS_ITS | Encounter Summary ---
Author Organization [facility] Address [facility] [place] [address] Care Team Providers Care Sap Data Analyst Name Role Phone Kenia Lawrence APRN Primary Care Provider [phone]- [phone] Reason for Visit * Reason Comments Chest Pain Encounter Details Date Type Department Care Team (Late st Contact Info) Description 10/10/2021 4:52 PM EST - 10/10/2021 7:04 PM EST Emergency Emergency Services at [address] [id number] Leila Pérez MD [facility] [place] [address] Atypical chest pain Discharge Disposition: Home Social History Tobacco Use [...] Sign Reading Time Taken Comments Blood Pressure 115/70 10/10/2021 7:00 PM EST Pulse 87 10/10/2021 7:00 PM EST Temperature 36.5 ??C (97.7 ??F) 10/10/2021 4:57 PM ES T Respiratory Rate 16 10/10/2021 7:00 PM EST Oxygen Saturation 97% 10/10/2021 7:00 PM EST Inhaled Oxygen Concentration - - Weight 72.6 kg (160 lb) 10/10/2021 4:57 PM EST Height 162.6 cm (5' 4) 10/10/2021 4:57 PM EST Body Mass Index 27.46 10/10/2021 4:57 PM EST documented in this encounter Discharge Instructions * Discharge Instructions* Leila Pérez MD - 10/10/2021 7:02 PM EST You were evaluated in the Emergency Department for chest pain. Your blood test showed no evidence of blood clot or heart damage. Your chest xray showed no pneumonia. There was a slight hazy area on the right lung which may be due to overlying soft tissues, however the Radiologist recommended an outpatient CT scan to further evaluate this. You should speak to your doctor to have this ordered. Your symptoms may be due to an evolving viral infection. Make sure to rest, drink plenty of fluids,tylenol for pain. Return to the ER if you have worsening symptoms, difficulty breathing, severe weakness or any concerns. documented in this encounter Medications at Time [...] Take 1 tablet by mouth as needed. vitamin C 500 mg Tablet TAKE ONE TABLET BY MOUTH EVERY DAY 08/24/2021 08/12/2023 clonazePAM (KlonoPIN) 0.5 mg Tablet Every 8 hours. 08/27/2021 11/14/2021 FLUoxetine (PROzac) 20 mg/5 mL (4 mg/mL) Solution 06/07/2021 11/14/2021 fluticasone (Flonase Sensimist) 27.5 mcg/actuation [place], Suspension every 24 hours. 09/06/2021 11/16/2021 ondansetron (Zofran) 4 mg Tablet Zofran 4 mg tablet Take 1 tablet every 6-8 hours by oral route as directed for 3 days. 11/14/2021 mag/aluminum/sod bicarb/alginc (GAVISCON ORAL) Take by mouth. 07/25/2022 pantoprazole EC (Protonix) 40 mg Tablet, Delayed Release (E.C.) Take 40 mg by mouth daily. 02/13/2022 esomeprazole (NexIUM) 20 mg Capsule, Delayed Release(E.C.) TAKE 1 CAPSULE BY MOUTH ONCE DAILY FOR 30 DAYS 10/30/2020 11/14/2021 famotidine (Pepcid) 40 mg Tablet TAKE 1 TABLET BY MOUTH ONCE DAILY 10/19/2020 11/16/2021 sucralfate (Carafate) 1 gram Tablet TAKE 1 TABLET BY MOUTH TWICE DAILY ON AN EMPTY STOMACH 10/11/2020 08/12/2023 diphenhydrAMINE/aluminum -magnesium hydroxide with simethicone/lidocaine (BMX) (6.67 mg-0.83 mg-13.33 mg-1.33 mg/mL) oral liquid Take by mouth. 05/14/2022 diazePAM (Valium) 5 mg Tablet Take 1 tablet by mouth in the morning for anxiety. Take half a tablet at night before bed for sleep. 0 05/25/2020 11/14/2021 hydrOXYzine (Atarax) 25 mg Tablet Take 1 tablet by mouth 3 times daily as needed for Anxiety. 30 tablet 12 05/25/2020 12/13/2021 lisinopril (PRINIVIL;ZESTRIL) 10 mg Tablet Take 10 mg by mouth daily. 2 04/01/2019 11/14/2021 prazosin (MINIPRESS) 1 mg Capsule Take 1 mg by mouth 3 times daily. 02/13/2022 documented as of this encounter ED Notes * Leila Pérez MD - 10/10/2021 7:04 PM EST ED Attending Note HPI: Aniya Luque is a 36 y.o. female with a history of asthma, hypertension, depression, who presents to the Emergency Department with intermittent left- sided chest pain since yesterday. She states that the pain is occasionally sharp, radiates somewhat to her back. Worse with a deep breath. She denies significant shortness of breath. She has a mild cough, no fever or chills. She was recently ill with Covid, diagnosed on 09/27, but is out of quarantine currently. No leg pain or swelling. No history of DVT/PE. The patient confided in the nurse that she had increased depression, and occasionally had thoughts of suicide but does not feel suicidal and does not feel that she is at risk for hurtingherself at this time. She lives with her fianc?? and children and feels that this is supportive. She does not drink alcohol and does not have any plan to hurt herself. Review of Systems Pertinent positives and negatives are included in the HPI, otherwise at least ten systems were reviewed and negative. Past Medical and Surgical Histories, Social History, Medications, Allergies were reviewed in the chart. Vitals: ED Triage Vitals [10/10/21 1657] BP: 118/75 Heart Rate: (!) 118 Resp: 14 Temp: 36.5 ??C (97.7 ??F) Temp src: Oral SpO2: 97 % O2 Device: RA O2 Flow Rate (L/min): n/a Physical Exam Constitutional: Alert, NAD Head: NCAT Eyes: anicteric, conjunctiva clear, EOMI, PERRL ENT: Nares clear, OP clear, neck supple, nontender cspine RESP: No respiratory distress, CTA CVS: Mildly tachycardic, No murmur, warm/well-perfused, normal pulses ABDO: soft, nontender, no rebound/guarding /Flank: no CVAT MSK: FROM all extremities/joints, no asymmetric swelling, no joint effusion SKIN: warm, dry, no rash NEURO: Normal speech, normal motor/sensory PSYCH: Depressed affect/mood, no SI HEME/LYMPH: no petechiae, no abnormal lymphadenopathy ED Course: I have reviewed labs and imaging, images and available reports, and they are significant for: EKG: Sinus tachycardia 113, axis 140, No ST elev or depression, poor RWP XR Chest PA & Lateral (Generic) Final Result FINDINGS/IMPRESSION: Indeterminate patchy opacity at the RIGHT lower lung (mildly more conspicuous compared to 06/11/2021, although not very well apparent on 08/12/2021); this of uncertain etiology and potentially could be overlapping structures; however, as recommended on 06/11/2021, consider CT chest for further evaluation (nonemergent unless otherwise clinically indicated). Otherwise, no new confluent airspace opacity, pleural effusion, or pneumothorax seen. Cardiomediastinal contours appear within normal limits and without significant change appreciated. Thank you for letting us participate in the care of this patient. If you are a health care provider and have any questions regarding this report, please contact the number below. For patients who have questions please contact the health childbirth and infant care teacher that requested your imaging first. Electronically signed by: Paresh Moreira MD, [facility] ([phone]), at 10/10/2021 6:13 PM Assessment and Plan: 36 y.o. female presents with intermittent chest pain x2 days. EKG shows poor R wave progression which was reported on previous EKG. Troponin negative x2. D-dimeris negative, low risk for PE. Chest x-ray shows subtle vague opacification which may be soft tissueoverlying, recommending outpatient CT. The patient is feeling somewhat better at this time. Low risk for acute coronary syndrome, and symptoms of likely due to GI upset. The patient also reported depr ession, but denies active suicidal ideation. Safe with discharge home with her fianc??. Will followup with PCP. Did this case involve critical care? No [...] concerns. she agrees with thefollow- up plan. Leila Pérez MD 10/10/212045 documented in this encounter Miscellaneous Notes * Ancillary Services Notes - Liliam Moon RCP - 10/10/2021 5:52 PM EST Summary: EKG EKG performed on Aniya Luque as ordered. Page received at 1705 and the order was completed at 1709. A physical copy was handed to the ordering provider. Respiratory therapy remains available should any complications arise. Liliam Moon RCP * ED Triage - Cheryl Zamudio RN - 10/10/2021 4:59 PM EST 36 yr old female. Alert and oriented. Came to the ED complaining of chest pain, high blood pressure, tachycardia, and pressure in her head. Stated it started this morning. Stated she has taken ibuprofen. States she is not immunized for COVID. No fevers. Reports chronic smoker's cough. BP 118/75 (BP Location (NBP): Left arm, Patient Position: Sitting) Pulse (!) 118 Temp 36.5 ??C (97.7 ??F) (Oral) Resp 14 Ht 162.6 cm (5' 4) Wt 72.6 kg (160 lb) SpO2 97% BMI 27.46 kg/m?? HPI (Adult) Stated Reason for Visit: My BP has been high and my heart rate has been between 115-130. My MD told me to get checked out. History Obtained From: patient Duration (Hours): 8 Medications/Treatments Prior to Arrival: medication (ibuprofen) documented in this encounter Plan of Treatment Upcoming Encounters Date Type Department Care Team (Late st Contact Info) Description 09/21/2024 8:15 AM EST Routine Obstetrics [place] [address] Emili Cabrera MD [facility] [place] [address] 09/26/2024 6:00 PM EST Appointment [facility] [place] [address] 10/16/2024 [facility] [place] [address] Dudley Aguilar MD [facility] DR OBSTETRICS [place] [address] 11/08/2024 10:00 AM EST Hospital Encounter Non-[place] [address] Arrived documented as of this encounter Procedures Procedure Name Priority Date/Time Associated Diagnosis Comments HC TROPONIN T STAT 10/10/2021 7:00 PM EST URINALYSIS WITH REFLEX CULTURE STAT 10/10/2021 5:58 PM EST XR CHEST PA AND LATERAL STAT 10/10/2021 5:37 PM EST D-DIMER, QUANTITATIVE STAT 10/10/2021 5:21 PM EST BLUE TUBE HOLD STAT 10/10/2021 5:21 PM EST HC TROPONIN T STAT 10/10/2021 5:21 PM EST HEPATIC FUNCTION PANEL STAT 10/10/2021 5:21 PM EST BASIC METABOLIC PANEL STAT 10/10/2021 5:21 PM EST HEMOGRAM STAT 10/10/2021 5:20 PM EST DIFFERENTIAL, AUTOMATED STAT 10/10/2021 5:20 PM EST HC CBC,PLT & AUTO DIFF STAT 10/10/2021 5:20 PM EST EKG 12-LEAD STAT 10/10/2021 5:09 PM EST POCT URINE STAT 10/10/2021 documented in this encounter Results * Troponin (10/10/2021 7:00 PM EST) Troponin-T <0.01 0.00 - 0.00 ng/mL LABORATORY Blood 10/10/2021 7:00 PM EST 10/10/2021 7:12 PM EST Narrative Resulting Agency Comment Spec In Lab Leila Pérez MD CHEMISTRY ORDERABLES LABORATORY [address] [place] [address] * Urinalysis with reflex Culture (10/10/2021 5:58 PM EST) Glucose, Urine Dipstick Negative Negative [facility] Protein, Urine Dipstick Negative Negative [facility] Bilirubin, Urine Dipstick Negative Negative [facility] Comment: Clinical correlation required for positive Urine Bilirubin results as false positive may occur with some drugs and drug related products. If a false positive is suspected a serum total bilirubin should be considered if clinically indicated. Urobilinogen, Urine Dipstick Normal Normal mg/dL [facility] pH, Urn (dipstick) 6.0 5.0 - 8.0 [facility] Blood, Urine Dipstick Negative Negative [facility] Ketone, Urine Dipstick Negative Negative [facility] Nitrite, Urine Dipstick Negative Negative [facility] Leukocytes, Urine Dipstick Negative Negative [facility] Appearance, Urine Dipstick Clear Clear LABORATORY Specific [place] Urine Automated 1.015 1.006 - 1.030 LAB[facility]ATORY Color, Urine Dipstick Yellow Yellow [facility] Reflex to Culture No LABORATORY Clean Catch Urine 10/10/2021 5:58 PM EST 10/10/2021 6:16 PM EST Narrative Resulting Agency Comment Spec In Lab Leila Pérez MD URINE ORDERABLES [facility] [address] [place] [address] * XR Chest PA & Lateral (Generic) (10/10/2021 5:37 PM EST) Anatomical Region Laterality Modality Chest N/A Digital Radiogra phy Impressions 10/10/2021 6:13 PM EST FINDINGS/IMPRESSION: Indeterminate patchy opacity at the RIGHT lower lung (mildly more conspicuous compared to 06/11/2021, although not very well apparent on 08/12/2021); this of uncertain etiology and potentially could be overlapping structures; however, as recommended on 06/11/2021, consider CT chest for further evaluation (nonemergent unless otherwise clinically indicated). Otherwise, no new confluent airspace opacity, pleural effusion, or pneumothorax seen. Cardiomediastinal contours appear within normal limits and without significant change appreciated. Thank you for letting us participate in the care of this patient. ??If you are a health care provider and have any questions regarding this report, please contact the number below. ??For patients who have questions please contact the health childbirth and infant care teacher that requested your imaging first. ? Narrative 10/10/2021 6:13 PM EST EXAMINATION: XR CHEST PA AND LATERAL (GENERIC) CLINICAL HISTORY: chest pain TECHNIQUE: PA and lateral views of the chest COMPARISON: Chest radiographs 06/11/2021 and 08/12/2021 Procedure Note Paresh Moreira MD - 10/10/2021 EXAMINATION: XR CHEST PA AND LATERAL (GENERIC) CLINICAL HISTORY: chest pain TECHNIQUE: PA and lateral views of the chest COMPARISON: Chest radiographs 06/11/2021 and 08/12/2021 IMPRESSION FINDINGS/IMPRESSION: Indeterminate patchy opacity at the RIGHT lower lung (mildly moreconspicuous compared to 06/11/2021, although not very well apparent on 08/12/2021);this of uncertain etiology and potentially could be overlapping structures;however, as recommended on 06/11/2021, consider CT chest for further evaluation(nonemergent unless otherwise clinically indicated). Otherwise, no new confluent airspace opacity, pleural effusion, orpneumothorax seen. Cardiomediastinal contours appear within normal limits and withoutsignificant change appreciated. Thank you for letting us participate in the care of this patient. If youare a health care provider and have any questions regarding this report,please contact the number below. For patients who have questions please contactthe health childbirth and infant care teacher that requested your imaging first. Electronically signed by: Paresh Moreira MD, [facility]([phone]), at 10/10/2021 6:13 PM Leila Pérez MD IMG DX ORDERABLES * Hepatic Function Panel (10/10/2021 5:21 PM EST) Protein, Total 7.1 6.1 - 8.0 g/dL [facility] Albumin 4.5 3.2 - 5.2 g/dL [facility] Aspartate Aminotransferase 16 0 - 30 unit/L [facility] Alanine Aminotransferase 29 0 - 30 unit/L [facility] Alkaline Phosphatase 84 35 - 105 unit/L [facility] Bilirubin, Total 0.2 0.2 - 1.3 mg/dL [facility] Bilirubin, Direct <0.2 0.0 - 0.3 mg/dL [facility] Blood Venous Draw / Unknown 10/10/2021 5:21 PM EST 10/10/2021 5:23 PM EST Narrative Resulting Agency Comment Spec In Lab Leila Pérez MD CHEMISTRY ORDERABLES Performing Organization Address [facility] de Phone Number [facility] [address] [place] [address] * D-Dimer, Quantitative (10/10/2021 5:21 PM EST) [facility] D-Dimer 330 0 - 500 FEU ng/ml [facility] Comment: The D-Dimer assay is used to aid in the diagnosis of deep vein thrombosis and pulmonary embolism. A normal D-Dimer result (less than 500 FEU ng/ml) has a negative predictive value of approximately 95% for the exclusion of acute PE and DVT when there is low to moderate pretest probability. To use age adjusted cutoff: Age x 10 ng/ml. Blood No Charge / Unknown 10/10/2021 5:21 PM EST 10/10/2021 5:23 PM EST Narrative Resulting Agency Comment Spec In Lab Leila Pérez MD HEMATOLOGY ORDERABLE S Performing Organization Address [facility] Co de Phone Number [facility] [address] [place] [address] * Blue Tube HOLD (10/10/2021 5:21 PM EST) [facility] Blue Hold Sample in lab. [facility] Blood 10/10/2021 5:21 PM EST 10/10/2021 5:21 PM EST Leila Pérez MD HEMATOLOGY ORDERABLE S Performing Organization Address [facility] Co de Phone Number [facility] [address] [place] [address] * Troponin (10/10/2021 5:21 PM EST) [facility] Troponin-T <0.01 0.00 - 0.00 ng/mL [facility] Blood 10/10/2021 5:21 PM EST 10/10/2021 5:21 PM EST Narrative Resulting Agency Comment Spec In Lab Leila Pérez MD CHEMISTRY ORDERABLES LABORATORY [address] [place] [address] * (ABNORMAL) Basic Metabolic Panel (non-fasting) (10/10/2021 5:21 PM EST) Glucose 111 65 - 199 mg/dL LAB[facility]ORY Comment:Diabetes: >=200 mg/d L plus symptoms Blood Urea Nitrogen 12 8 - 18 mg/dL LAB[facility] Creatinine 0.92 0.70 - 1.20 mg/dL [facility] Sodium 139 135 - 145 mmol/L [facility] Potassium 3.6 3.5 - 5.0 mmol/L [facility] Comment: Please note: ??Patients with WBC >100,000 may have falsely elevated Potassium levels. ??For accurate Potassium quantification in these patients send serum separator tube (gold top) for subsequent determinations. ??Contact the Clinical Chemistry Laboratory if there are any questions. Chloride 103 98 - 107 mmol/L LAB[facility]ORY Carbon Dioxide 21(L) 22 - 31 mmol/L [facility] Anion Gap 15 5 - 15 mmol/L [facility] Calcium 9.2 8.5 - 10.5 mg/dL [facility] Est Glomerular Filtration Rate 80 >=60 mL/min/1. 73 m?? LAB[facility]ATORY Comment: This patient? s estimated glomerular filtration rate (eGFR) is between 80 mL/min/1.73 m2 (patients with less muscle mass per kg body weight) and 92 mL/min/1.73 m2 (patients with more muscle mass per kg body weight) as determined by the CKD-EPI equation. Assessment [...] and symptoms in addition to eGFR. Blood 10/10/2021 5:21 PM EST 10/10/2021 5:21 PM EST Narrative Resulting Agency Comment Spec In Lab Leila Pérez MD CHEMISTRY ORDERABLES Performing Organization Address City/[facility]/ZIP Co de Phone Number [facility] [address] [place] [address] * (ABNORMAL) Differential, Automated (10/10/2021 5:20 PM EST) Neutrophil % 60.9 % [facility] Neutrophil Absolute 7.09(H) 1.70 - 6.10 x10(3)/mc L [facility] Lymph % 29.4 % [facility] Lymphocytes Abs 3.4(H) 0.9 - 3.2 x10(3)/mc L [facility] Monocyte % 6.6 % [facility] Monocyte Abs 0.8 0.3 - 0.9 x10(3)/mc L [facility] Eos % 2.6 % [facility] Eosinophils Abs 0.3 0.0 - 0.4 x10(3)/mc L [facility] Basophil % 0.3 % [facility] Baso Absolute 0.0 0.0 - 0.1 x10(3)/mc L [facility] Immature Gran % 0.20 % C E LABORATORY Comment: Immature granulocytes(IG's)percentage and absolute count will include metamyelocytes, myelocytes, and promyelocytes. Blood smears from CBCs yielding IG's will be scanned manually for concordance. If this scan disagrees with the automated IG or if promyelocytes are noted, a manual differential will be performed. Immature Gran Absolute 0.02 0.00 - 0.04 x10(3)/mc L [facility] Blood 10/10/2021 5:20 PM EST 10/10/2021 5:20 PM EST Narrative Resulting Agency Comment Spec In Lab Leila Pérez MD HEMATOLOGY ORDERABLE S Performing Organization Address City/[facility]/ZIP Co de Phone Number [facility] [address] [place] [address] * (ABNORMAL) Hemogram (10/10/2021 5:20 PM EST) Pathologist [facility] White Blood Cell 11.6(H) 4.0 - 9.5 x10(3)/mc L LABOR[facility]ORY Red Blood Cell 4.61 4.00 - 5.21 x10(6)/mc L [facility] Hemoglobin 12.0 11.7 - 15.5 g/dL [facility] Hematocrit 37.0 35.7 - 45.8 % LAB[facility] Mean Cell Volume 80.3(L) 82.6 - 94.4 fL LAB[facility] Mean Cell Hemoglobin 26.0(L) 27.1 - 32.0 pg LAB[facility]ORY Mean Cell Hemoglobin Concentration 32.4 31.7 - 35.0 g/dL [facility] Platelet 269 145 - 357 x10(3)/mc L [facility] RDW Standard Deviation 43.7 37.0 - 46.0 fL LABOR[facility]ORY RDW coefficient of variation 14.8(H) 11.5 - 14.1 % LABORATORY Mean Platelet Volume 11.7 7.6 - 12.9 fL [facility] Blood 10/10/2021 5:20 PM EST 10/10/2021 5:20 PM EST Narrative Resulting Agency Comment Spec In Lab Leila Pérez MD HEMATOLOGY ORDERABLE S LABORATORY [address] [place] [address] * EKG 12 Lead (10/10/2021 5:09 PM EST) Pathologist [facility] Ventricular rate 113 BPM MUSE SYSTEM Atrial Rate 113 BPM MUSE SYSTEM P-R Interval 136 ms MUSE SYSTEM QRS Duration 82 ms MUSE SYSTEM Q-T Interval 344 ms MUSE SYSTEM QTC Calculated (Bezet) 471 ms MUSE SYSTEM Calculated R [place] 140 degrees MUSE SYSTEM Calculated T [place] 130 degrees MUSE SYSTEM INTERPRETATION Sinus tachycardia Left posterior fascicular block Cannot rule out Anterior infarct , age undetermined Abnormal ECG When compared with ECG of 23-APR-2021 19:01, Vent. rate has increased BY ??44 BPM Left posterior fascicular block is now Present Confirmed by MD Efrain, Fausto Lambert ([id number]) on 10/11/2021 11:43:43 AM MUSE SYSTEM 10/10/2021 5:09 PM EST 10/11/2021 11:43 AM EST Leila Pérez MD ECG ORDERABLES MUSE SYSTEM * POCT urine (10/10/2021) POC Urine HCG Negative Negative - Negative POC Control Internal Controls Acceptable 10/10/2021 Leila Pérez MD POINT OF CARE TEST O RDERABLES documented in this encounter Visit Diagnoses Diagnosis Atypical chest pain Other chest pain documented in this encounter Administered Medications Inactive Administered Medications - up to 3 most recent administrations Medication Order MAR Action Action Date Dose Rate Site ketorolac (Toradol) (30 mg/mL) injection 30 mg 30 mg, Intravenous, ONCE, 1 dose, On Fri10/10/21 at 1727, STAT Given 10/10/2021 5:51 PM EST 30 mg sodium chloride 0.9 % (flush) (BD PosiFlush Normal Saline 0.9) flush 10 mL 10 mL, Intravenous, EVERY 1 MIN PRN, Starting on Fri10/10/21 at 1703, Until Fri10/10/21 at 2104, for flushes pre / post IV fluids or blood draws as needed, Routine sodium chloride 0.9% 1,000 mL IV bolus Intravenous, ONCE, 1 dose, On Fri10/10/21 at 1724 New Bag 10/10/2021 5:51 PM EST documented in this encounter Active and Recently Administered Medications Times are shown in EST. Scheduled Medication Order 10/08/2021 10/09/2021 10/10/2021 ketorolac (Toradol) (30 mg/mL) injection 30 mg (COMPLETED) 30 mg, Intravenous, ONCE, 1 dose, On Fri10/10/21 at 1727, STAT 1751 (Given - Provid er: Cheryl Zamudio RN) sodium chloride 0.9% 1,000 mL IV bolus (COMPLETED) Intravenous, ONCE, 1 dose, On Fri10/10/21 at 1724 1751 (New Bag - Prov ider: Cheryl Zamudio RN)[id number] (Stopped - Provider: Cheryl Zamudio RN) PRN Medication Order 10/08/2021 10/09/2021 10/10/2021 sodium chloride 0.9 % (flush) (BD PosiFlush Normal Saline 0.9) flush 10 mL 10 mL, Intravenous, EVERY 1 MIN PRN, Starting on Fri10/10/21 at 1703, Until Fri10/10/21 at 2104, for flushes pre / post IV fluids or blood draws as needed, Routine documented in this encounter Care Teams Sap Data Analyst Relationship Specialty Start Date End Date Kenia Lawrence APRN [address] [place] [address] PCP - General Family Medicine 10/10/21 05/20/22 documented as of this encounter
--- OUTSIDE RECORDS SUMMARY | 2024-09-20 11:15 | XMS_ITS | Encounter Summary ---
Author Organization [facility] [place] [address] Care Team Providers Care Croze Cutter Name Role Phone Kenia Lawrence [employer] Primary Care Provider [phone] Encounter Details Date Type Department Care Team (Late st Contact Info) Description 10/10/2021 5:30 PM EST Ancillary Procedure Radiology Xray at [facility] [place] [address] Social History Tobacco Use Types Packs/Day Years [...] AM EST Routine Obstetrics [place] [address] Emili Cabrera MD [facility] MATERNAL [place] [address] 09/26/2024 6:00 PM EST Appointment [facility] [place] [phone] 10/16/2024 [facility] [place] [phone] Dudley Aguilar MD [facility] DR OBSTETRICS [place] [address] 11/08/2024 10:00 AM EST Hospital Encounter Non-Invasive [place] [address] Arrived documented as of this encounter Procedures Procedure Name Priority Date/Time Associated Diagnosis Comments XR CHEST PA AND LATERAL STAT 10/10/2021 5:37 PM EST documented in this encounter Results [...] have questions please contact the health care nurse rn that requested your imaging first. ? Electronically signed by: Paresh Moreira MD, [facility] ([phone]), at 10/10/2021 6:13 PM Narrative 10/10/2021 6:13 PM EST EXAMINATION: XR [...] who have questions please contactthe health care nurse rn that requested your imaging first. Electronically signed by: Paresh Moreira MD, [facility]([phone]), at 10/10/2021 6:13 PM Leila Pérez MD IMG DX ORDERABLES documented in this encounter Visit Diagnoses Not on filedocumented in this encounter Care Teams Croze Cutter Relationship Specialty Start Date End Date Kenia Lawrence APRN [address] [place] [address] PCP - General Family Medicine 10/10/21 05/20/22 documented as of this encounter
--- OUTSIDE RECORDS SUMMARY | 2024-09-20 11:15 | XMS_ITS | Encounter Summary ---
Author Organization [facility] Address [facility] [place] [address] Care Team Providers Care Programs Director Name Role Phone Unavailable Primary Care Provider Unavailabl e Encounter Details Date Type Department Care Team (Late st Contact Info) Description 06/11/2021 Interpretation Only [address] [id number] Eleonora Pimentel Jr., DO [address] [place] [address] Social History Tobacco Use Types Packs/Day Years [...] AM EST Routine Obstetrics [place] [address] Emili Cabrera MD [facility] [place] [address] 09/26/2024 6:00 PM EST Appointment [facility] [place] [address] 10/16/2024 [facility] [place] [address] Dudley Aguilar MD [facility] DR OBSTETRICS AND GYNECOLOGY [place] [id number] 11/08/2024 10:00 AM EST Hospital Encounter Non-[place] [address] Arrived documented as of this encounter Procedures Procedure Name Priority Date/Time Associated Diagnosis Comments XR CHEST PA AND LATERAL STAT 06/11/2021 2:21 PM EDT documented in this encounter Results * (ABNORMAL) XR Chest PA & Lateral (Generic) (06/11/2021 2:21 PM EDT) PT CLASS E RAD ADMITDTTM RAD PT RAD INFO [id number]^B ROWN^ELEONORA^ A DH RAD EXAM DESC XCXR2^XR CHEST 2 VIEWS^RIS RAD Anatomical Region Laterality Modality Chest N/A Radiographic Ewa ging Impressions 06/11/2021 2:27 PM EDT Unexpected finding: New 2 cm nodular opacity right mid lower lung. Further evaluation CT scan suggested. Thank you for letting us participate in the care of this patient. ??If you are a health care provider and have any questions regarding this report, please contact the number below. ??For patients who have questions please contact the health animal care supervisor that requested your imaging first. ? Electronically signed by: Danielle Rausch MD, [facility] ([phone]), at 06/11/2021 2:27 PM Narrative 06/11/2021 2:27 PM EDT EXAMINATION: XR CHEST 2 VIEWS CLINICAL HISTORY: Cough TECHNIQUE: PA and lateral chest COMPARISON: March 02, 2021 FINDINGS: No pleural effusion. No pneumothorax. New 2 cm nodular opacity right mid lower lung. Cardiac, mediastinal and hilar contours are unchanged. No distracted rib fracture. Thoracic vertebral body heights maintained. Resulting Agency Comment Unexpected Finding Procedure Note Danielle Rausch MD - 06/11/2021 EXAMINATION: XR CHEST 2 VIEWS CLINICAL HISTORY: Cough TECHNIQUE: PA and lateral chest COMPARISON: March 02, 2021 FINDINGS: No pleural effusion. No pneumothorax. New 2 cm nodular opacity right midlower lung. Cardiac, mediastinal and hilar contours are unchanged. No distracted rib fracture. Thoracic vertebral body heights maintained. IMPRESSION Unexpected finding: New 2 cm nodular opacity right mid lower lung.Further evaluation CT scan suggested. Thank you for letting us participate in the care of this patient. If youare a health care provider and have any questions regarding this report,please contact the number below. For patients who have questions please contactthe health animal care supervisor that requested your imaging first. Electronically signed by: Danielle Rausch MD, [facility]([phone]), at 06/11/2021 2:27 PM Eleonora Pimentel Jr., DO IMG DX ORDERABLES documented in this encounter Visit Diagnoses Not on filedocumented in this encounter
--- OUTSIDE RECORDS SUMMARY | 2024-09-20 11:15 | XMS_ITS | Encounter Summary ---
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 Electronically signed by: Cyn Bhakta MD, [facility] ([phone]), at 11/12/2021 8:12 AM Medications Scheduled Meds: ??? lisinopriL 20 mg Oral Daily ??? prazosin 2 mg Oral Nightly ??? clonazePAM 1 mg Oral BID ??? guaiFENesin ER 600 mg Oral 2 times per day ??? ceFEPime (Maxipime) 2g vial attach to sodium chloride 0.9% 100 mL Mini-Bag Plus 2 g KukabzoltmbW8H ??? amLODIPine 10 mg Oral Daily ??? [...] on telemetry 80-105. Uneventful day. NPO at OR for possible subcutaneous ICD. * Sparkle Barkley [...] Note: Added automatically from request for surgery [id number] ??? Borderline personality disorder ??? Post-traumatic stress [...] to [facility]. ?? She was transported to [facility] where she sometime on FridayNovember 05 went [...] November 07, 2021. Ms. Lundy lives in [place], [place]. She has 3 children (5- Cindi; [...] arrest EKG - 11/10/21 SR at 80bpm, MO 130ms, QRS 86ms, QT 418ms, QTc 482ms [...] reported cocaine and heroinuse. She passed the [employer] S-ICD screening today. We had an extensive [...] contact EP with any further questions (pager [phone]). EDEN Sanchez 11/11/2021 Pager: [phone] * Shana Zurita MD - 11/11/2021 5:40 AM EST Images from the original note were not included. Cardiology Progress Note?? Patient info: Name: Aniya Lundy : 1985 PCP: Kenia Lawrence APRN PCP phone number: [phone] Date of Admission: 11/04/2021 ( Hospital Day [...] 1759 PHART 7.34* 7.23* 7.25* 7.24* 7.23* [id number] 37 46* 40 42 43 PO2ART 88 90 117* 80* 71* HRH0YAN 19.2* 18.6* 17.0* 17.6* 17.6* LACTATEVEN 0.6 0.4* 0.5 0.9 1.7 [id number] 40 50 70 80 70 PFRATIOART2 220 180 167 100 101 VBG (Venous Blood Gas) Recent Labs 11/07/21 0940 11/07/21 0630 11/07/21 0207 11/06/21204311/06/21 1759 LACTATEVEN 0.6 0.4* 0.5 0.9 1.7 Mixed Venous Sat No results for input(s): S5SQOG5 in the last 168 hours. Microbiology: Microbiology Results (Last 30 days) Procedure Component Value Units Date/Time MRSA PCR [[id number]] Collected: 11/08/21 1010 Lab Status: Final result [...] of this test was determined by the [facility] Molecular Pathology Laboratory. It has been cleared by the U.S. Food and Drug Administration for clinical use. Comment: [VERIFIED DATE]11.09.21 Verified By:Dudley Cook (Electronic Signature) Blood culture [[id number]] Collected: 11/06/211999 Lab Status: Preliminary result Specimen: Blood from Hand, Left Updated: 11/10/21 2301 Blood Culture No growth at 4 days. Blood culture [[id number]] Collected: 11/06/21 1847 Lab Status: Preliminary result Specimen: Blood Updated: 11/10/21 2301 Blood Culture No growth at 4 days. Lower Respiratory Culture Tracheal Aspirate [[id number]] Collected: 11/06/21 1220 Lab Status: Final result Specimen: Tracheal Aspirate Updated: 11/09/21 1041 Lower Respiratory Culture Many mixed bacterial morphotypes suggestive of normal upper respiratory al Gram Stain -- Many Neutrophils seen Few squamous epithelial cells seen Many mixed bacterial morphotypes suggestive of normal upper respiratory al Blood culture [[id number]] Collected: 11/04/21 2250 Lab Status: Final result Specimen: Blood from Hand, Right Updated: 11/10/21 0701 Blood Culture No growth at 5 days. Blood culture [[id number]] Collected: 11/04/21 2215 Lab Status: Final result Specimen: Blood from Antecubital, Right Updated: 11/10/21 0701 Blood Culture No growth at 5 days. COVID-19 PCR [[id number]] Collected: 11/04/21 0735 Lab Status: Final result [...] using the Simplexa COVID-19 Direct Assay by [employer] as authorized by the FDA issued Emergency [...] Department of Pathology and Laboratory Medicine at [facility], certified under the Clinical Laboratory Improvement [...] fact sheets at the following FDA website: https://www.fda.gov/medical-devices/celnduwvpwf-rjjsvmf-0457-ezaoj-86-wunmwhgfv- hvp-nniqywtarzxjkz-eapxicn-devices/uskrd-szqklolibwu-vlqr SARS-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 TECHNOLOGY Swab Imaging: Results for orders placed or [...] who have questions please contact the health personal care aide that requested your imaging first. Electronically signed by: JIM CARL MD, [facility] ([phone]), at 11/04/2021 10:18 AM XR Abdomen 1 view (Generic) (Exam End: 11/04/2021 10:09 AM) Impression Orogastric tube placement, as above. Thank you for letting us participate in the care of this patient. If you are a health care provider and have any questions regarding this report, please contact the number below. For patients who have questions please contact the health personal care aide that requested your imaging first. Electronically signed by: JIM CARL MD, [facility] ([phone]), at 11/04/2021 10:[address] Head wo [...] who have questions please contact the health personal care aide that requested your imaging first. Electronically signed by: Alejo Garcia MD, [facility] ([phone]), at 11/04/2021 9:[address] Angiogram Chest [...] who have questions please contact the health personal care aide that requested your imaging first. Electronically signed by: JIM CARL MD, [facility] ([phone]), at 11/04/2021 9:52 AM XR Chest One [...] who have questions please contact the health personal care aide that requested your imaging first. Electronically signed by: Jennifer Bassett MD, [facility] ([phone]), at 11/04/2021 8:53 PM XR Chest One [...] who have questions please contact the health personal care aide that requested your imaging first. Electronically signed by: Danielle Rausch MD, [facility] ([phone]), at 11/05/2021 9:48 AM XR Chest One View (Exam End: 11/06/2021 6:36 AM) Impression * Equipment as above. * Mild pulmonary vascular congestion. Thank you for letting us participate in the care of this patient. If you are a health care provider and have any questions regarding this report, please contact the number below. For patients who have questions please contact the health personal care aide that requested your imaging first. Electronically signed by: Kimberley Pichardo MD, [facility] ([phone]), at 11/06/2021 6:47 AM XR Chest One [...] who have questions please contact the health personal care aide that requested your imaging first. Electronically signed by: Danielle Rausch MD, [facility] ([phone]), at 11/07/2021 9:56 AM XR Chest One [...] who have questions please contact the health personal care aide that requested your imaging first. Electronically signed by: Dinh Becerril MD, [facility] ([phone]), at 11/07/2021 9:33 AM XR Abdomen 1 [...] who have questions please contact the health personal care aide that requested your imaging first. Electronically signed by: Chandrakant Pena MD, [facility] ([phone]), at 11/07/2021 11:43 AM Medications Scheduled Meds: ??? lisinopriL 20 mg Oral Daily ??? prazosin 2 mg Oral Nightly ??? clonazePAM 1 mg Oral BID ??? guaiFENesin ER 600 mg Oral 2 times per day ??? ceFEPime (Maxipime) 2g vial attach to sodium chloride 0.9% 100 mL Mini-Bag Plus 2 g PxhiestlkowC1J ??? amLODIPine 10 mg Oral Daily ??? [...] up in chair for most of shift. youth worker met with pt at bedside, pt was having muscular like pain in her chest, pt was given tylenol and Ibuprofen when appropriate, pain was manageableper patient * Rani Ayers MSW - 11/10/2021 2:02 PM EST Office Of Care Management Weekend Regulator Inspector Social Work HAROON Christie SW met with patient, Aniya, to assess coping and psychosocial needs. Aniya had difficulties actively participating in the conversation due to her level of pain. She was able to share that she lives in a subsidized apartment in [place], [place]. She receives social security disability income, and has for many years. She has a valid drivers license and a car. She shares that she struggles financially, After paying her subsidized rent, car insurance, and car payment, she only has $30 left at the end of the month. She does receive [address] [place] [address] food stamp benefits and has no concerns [...] be reassessed again prior to discharge. Pager: [phone] * Prashant Johnson - 11/10/2021 6:02 AM EST Images from the original note were not included. Cardiology ICU Progress Note?? Patient info: Name: Aniya Lundy : 1985 PCP: Kenia Lawrence APRN PCP phone number: [phone] Date of Admission: 11/04/2021 ( Hospital Day [...] 1759 PHART 7.34* 7.23* 7.25* 7.24* 7.23* [id number] 37 46* 40 42 43 PO2ART 88 90 117* 80* 71* DGE6ZRK 19.2* 18.6* 17.0* 17.6* 17.6* LACTATEVEN 0.6 0.4* 0.5 0.9 1.7 JGV2MFP 40 50 70 80 70 PFRATIOART2 220 180 167 100 101 VBG (Venous Blood Gas) Recent Labs 11/07/21 0940 11/07/21 0630 11/07/21 0207 11/06/21 2044 11/06/21 1759 11/04/21 0843 11/04/21 0733 PHVEN -- -- -- -- -- -- 7.09* [id number] -- -- -- -- -- -- 66* PO2VEN -- -- -- -- -- -- 31 YTM8DMN -- -- -- -- -- -- 19.7 LACTATEVEN 0.6 0.4* 0.5 0.9 1.7 < > 6.5* < > = values in this interval not displayed. Mixed Venous Sat No results for input(s): H1IBTU4 in the last 168 hours. Microbiology: Microbiology Results (Last 30 days) Procedure Component Value Units Date/Time MRSA PCR [[id number]] Collected: 11/08/21 1010 Lab Status: Final result [...] of this test was determined by the [facility] Molecular Pathology Laboratory. It has been cleared by the U.S. Food and Drug Administration for clinical use. Comment: [VERIFIED DATE]11.09.21 Verified By:Dudley Cook (Electronic Signature) Blood culture [[id number]] Collected: 11/06/211999 Lab Status: Preliminary result Specimen: Blood from Hand, Left Updated: 11/09/212300 Blood Culture No growth at 3 days. Blood culture [[id number]] Collected: 11/06/21 1847 Lab Status: Preliminary result Specimen: Blood Updated: 11/09/212300 Blood Culture No growth at 3 days. Lower Respiratory Culture Tracheal Aspirate [[id number]] Collected: 11/06/21 1220 Lab Status: Final result Specimen: Tracheal Aspirate Updated: 11/09/21 1041 Lower Respiratory Culture Many mixed bacterial morphotypes suggestive of normal upper respiratory al Gram Stain -- Many Neutrophils seen Few squamous epithelial cells seen Many mixed bacterial morphotypes suggestive of normal upper respiratory al Blood culture [[id number]] Collected: 11/04/21 2250 Lab Status: Final result Specimen: Blood from Hand, Right Updated: 11/10/21 0701 Blood Culture No growth at 5 days. Blood culture [[id number]] Collected: 11/04/21 2215 Lab Status: Final result Specimen: Blood from Antecubital, Right Updated: 11/10/21 0701 Blood Culture No growth at 5 days. COVID-19 PCR [[id number]] Collected: 11/04/21 0735 Lab Status: Final result [...] using the Simplexa COVID-19 Direct Assay by [employer] as authorized by the FDA issued Emergency [...] Department of Pathology and Laboratory Medicine at [facility], certified under the Clinical Laboratory Improvement [...] fact sheets at the following FDA website: https://www.fda.gov/medical-devices/ptnxqdelovf-duzlwon-0344-csgnd-73-ewvvkexfp- csk-uofwoimabynjul-dwznmvl-devices/unqkh-ybwcrmtfyjn-nqxq SARS-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 TECHNOLOGY Swab Imaging: Results for orders placed or [...] who have questions please contact the health personal care aide that requested your imaging first. Electronically signed by: JIM CARL MD, [facility] ([phone]), at 11/04/2021 10:18 AM XR Abdomen 1 view (Generic) (Exam End: 11/04/2021 10:09 AM) Impression Orogastric tube placement, as above. Thank you for letting us participate in the care of this patient. If you are a health care provider and have any questions regarding this report, please contact the number below. For patients who have questions please contact the health personal care aide that requested your imaging first. Electronically signed by: JIM CARL MD, [facility] ([phone]), at 11/04/2021 10:[address] Head wo [...] who have questions please contact the health personal care aide that requested your imaging first. Electronically signed by: Alejo Garcia MD, [facility] ([phone]), at 11/04/2021 9:[address] Angiogram Chest [...] who have questions please contact the health personal care aide that requested your imaging first. Electronically signed by: JIM CARL MD, [facility] ([phone]), at 11/04/2021 9:52 AM XR Chest One [...] who have questions please contact the health personal care aide that requested your imaging first. Electronically signed by: Jennifer Bassett MD, [facility] ([phone]), at 11/04/2021 8:53 PM XR Chest One [...] who have questions please contact the health personal care aide that requested your imaging first. Electronically signed by: Danielle Rausch MD, [facility] ([phone]), at 11/05/2021 9:48 AM XR Chest One View (Exam End: 11/06/2021 6:36 AM) Impression * Equipment as above. * Mild pulmonary vascular congestion. Thank you for letting us participate in the care of this patient. If you are a health care provider and have any questions regarding this report, please contact the number below. For patients who have questions please contact the health personal care aide that requested your imaging first. Electronically signed by: Kimberley Pichardo MD, [facility] ([phone]), at 11/06/2021 6:47 AM XR Chest One [...] who have questions please contact the health personal care aide that requested your imaging first. Electronically signed by: Danielle Rausch MD, [facility] ([phone]), at 11/07/2021 9:56 AM XR Chest One [...] who have questions please contact the health personal care aide that requested your imaging first. Electronically signed by: Dinh Becerril MD, [facility] ([phone]), at 11/07/2021 9:33 AM XR Abdomen 1 [...] who have questions please contact the health personal care aide that requested your imaging first. Electronically signed by: Chandrakant Pena MD, [facility] ([phone]), at 11/07/2021 11:43 AM Medications Scheduled Meds: ??? lisinopriL 20 mg Oral Daily ??? prazosin 2 mg Oral Nightly ??? clonazePAM 1 mg Oral BID ??? guaiFENesin ER 600 mg Oral 2 times per day ??? ceFEPime (Maxipime) 2g vial attach to sodium chloride 0.9% 100 mL Mini-Bag Plus 2 g PeoelgurovhK7C ??? amLODIPine 10 mg Oral Daily ??? [...] VSS. Sitter at bedside * Alissa Torres FLEECE TIER - 11/09/2021 3:24 PM EST Office of Care Management Social Work Note Patient: Aniya Lundy Relevant Information: Attempted to see patient to connect with community resources. However, patient was in process of transferring to another floor. Gave resources to CORDWAINER, who said he would share them with the patient. Plan: Will add patient to weekend list for monitoring with social dynamics. FLEECE TIER will continue to follow as needs are identified. HAROON Nicholson Critical Care FLEECE TIER Office of Care Management Pager: [phone] * Priscila Garcia, PT - 11/09/2021 3:20 [...] ENDOSCOPY performed by Dudley Alva MD at [facility] ENDOSCOPY Active Non-Hospital Problems Diagnosis ??? Gastroesophageal reflux disease ??? Chest pain ??? Skin disease ??? Anxiety ??? Tachycardia Social History: lives in [place], [place] and her boyfriend, Dk, occasionally stays with her; works at [employer] in [place], [place]; per chart, she has 3 children, [...] ?? Engage in ADL's as able Subjective: ???[facility].?? I don't know why I'm here. [...] 3-, wrist flexion and extension 3, hand document scanner 3, hip flexion 2-, hip extension 2+, [...] today as she [facility] Balance: Sitting Static: poor; required moderate [...] Physical Therapy: 50 PRISCILA GARCIA, PT Pager: [phone] Physical Therapy Inpatient Rehabilitation Department * Nidia Schultz, OT - 11/09/2021 2:55 PM EST OT contact note 11/09/21 3334 OT Time and Intention Document Type contact Total Minutes, Occupational Therapy 0 Comment, Session Not Performed OT consult received. EDH reviewed. Pt was not available (transferring rooms then getting settled). OT will follow up on Friday. Thank you for this consult. Nidia Schultz OTR/L Pager: [phone] * Shana Zurita MD - 11/09/2021 5:26 AM EST Images from the original note were not included. Cardiology ICU Progress Note?? Patient info: Name: Aniya Lundy : 1985 PCP: Kenia Lawrence APRN PCP phone number: [phone] Date of Admission: 11/04/2021 ( Hospital Day [...] 11/07/2120611/06/21204311/06/211758 PHART 7.34* 7.23* 7.25* 7.24* 7.23* [id number] 37 46* 40 42 43 PO2ART 88 90 117* 80* 71* HPZ4MJO 19.2* 18.6* 17.0* 17.6* 17.6* LACTATEVEN 0.6 0.4* 0.5 0.9 1.7 YBF6DPX 40 50 70 80 70 PFRATIOART2 220 180 167 100 101 VBG (Venous Blood Gas) Recent Labs 11/07/21 0940 11/07/21 0630 11/07/2120611/06/21204311/06/21 1759 11/04/21 0843 11/04/21 0733 PHVEN -- -- -- -- -- -- 7.09* CTJ5OXT -- -- -- -- -- -- 66* PO2VEN -- -- -- -- -- -- 31 YJX9JAS -- -- -- -- -- -- 19.7 LACTATEVEN 0.6 0.4* 0.5 0.9 1.7 < > 6.5* < > = values in this interval not displayed. Mixed Venous Sat No results for input(s): Q0LQXL8 in the last 168 hours. Objective: Vitals [...] 1759 PHART 7.34* 7.23* 7.25* 7.24* 7.23* ISH6JTF 37 46* 40 42 43 PO2ART 88 90 117* 80* 71* SQD9EGG 19.2* 18.6* 17.0* 17.6* 17.6* LACTATEVEN 0.6 0.4* 0.5 0.9 1.7 JRU5OUK 40 50 70 80 70 PFRATIOART2 220 180 167 100 101 VBG (Venous Blood Gas) Recent Labs 11/07/21 0940 11/07/21 0630 11/07/21 0207 11/06/214 11/06/21 1759 11/04/21 0843 11/04/21 0733 PHVEN -- -- -- -- -- -- 7.09* RVI0SEA -- -- -- -- -- -- 66* PO2VEN -- -- -- -- -- -- 31 DUG2IJF -- -- -- -- -- -- 19.7 LACTATEVEN 0.6 0.4* 0.5 0.9 1.7 < > 6.5* < > = values in this interval not displayed. Mixed Venous Sat No results for input(s): Y9DYGU7 in the last 168 hours. Microbiology: Microbiology Results (Last 30 days) Procedure Component Value Units Date/Time MRSA PCR [[id number]] Collected: 11/08/21 1010 Lab Status: Final result [...] of this test was determined by the [facility] Molecular Pathology Laboratory. It has been cleared by the U.S. Food and Drug Administration for clinical use. Comment: [VERIFIED DATE]11.09.21 Verified By:Dudley Cook (Electronic Signature) Blood culture [[id number]] Collected: 11/06/211999 Lab Status: Preliminary result Specimen: Blood from Hand, Left Updated: 11/08/21 2301 Blood Culture No growth at 2 days. Blood culture [[id number]] Collected: 11/06/21 1847 Lab Status: Preliminary result Specimen: Blood Updated: 11/08/21 2301 Blood Culture No growth at 2 days. Lower Respiratory Culture Tracheal Aspirate [[id number]] Collected: 11/06/21 1220 Lab Status: Preliminary result Specimen: Tracheal Aspirate Updated: 11/07/21 1420 Lower Respiratory Culture Many mixed bacterial morphotypes suggestive of normal upper respiratory al Gram Stain -- Many Neutrophils seen Few squamous epithelial cells seen Many mixed bacterial morphotypes suggestive of normal upper respiratory al Blood culture [[id number]] Collected: 11/04/21 2250 Lab Status: Preliminary result Specimen: Blood from Hand, Right Updated: 11/08/21 2301 Blood Culture No growth at 4 days. Blood culture [[id number]] Collected: 11/04/21 2215 Lab Status: Preliminary result Specimen: Blood from Antecubital, Right Updated: 11/08/21 2301 Blood Culture No growth at 4 days. COVID-19 PCR [[id number]] Collected: 11/04/21 0735 Lab Status: Final result [...] using the Simplexa COVID-19 Direct Assay by [employer] as authorized by the FDA issued Emergency [...] Department of Pathology and Laboratory Medicine at [facility], certified under the Clinical Laboratory Improvement [...] fact sheets at the following FDA website: https://www.fda.gov/medical-devices/lvhunwobcqh-amhiclw-2944-kmuzk-83-swloktjnq- dee-txfisgmlisydmc-twnndrt-devices/eysfh-kmbnwwazwui-kqwh SARS-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 TECHNOLOGY Swab Imaging: Results for orders placed or [...] who have questions please contact the health personal care aide that requested your imaging first. Electronically signed by: JIM CARL MD, [facility] ([phone]), at 11/04/2021 10:18 AM XR Abdomen 1 view (Generic) (Exam End: 11/04/2021 10:09 AM) Impression Orogastric tube placement, as above. Thank you for letting us participate in the care of this patient. If you are a health care provider and have any questions regarding this report, please contact the number below. For patients who have questions please contact the health personal care aide that requested your imaging first. Electronically signed by: JIM CARL MD, [facility] ([phone]), at 11/04/2021 10:[address] Head wo [...] who have questions please contact the health personal care aide that requested your imaging first. Electronically signed by: Alejo Garcia MD, [facility] ([phone]), at 11/04/2021 9:[address] Angiogram Chest [...] who have questions please contact the health personal care aide that requested your imaging first. Electronically signed by: JIM CARL MD, [facility] ([phone]), at 11/04/2021 9:52 AM XR Chest One [...] who have questions please contact the health personal care aide that requested your imaging first. Electronically signed by: Jennifer Bassett MD, [facility] ([phone]), at 11/04/2021 8:53 PM XR Chest One [...] who have questions please contact the health personal care aide that requested your imaging first. Electronically signed by: Danielle Rausch MD, [facility] ([phone]), at 11/05/2021 9:48 AM XR Chest One View (Exam End: 11/06/2021 6:36 AM) Impression * Equipment as above. * Mild pulmonary vascular congestion. Thank you for letting us participate in the care of this patient. If you are a health care provider and have any questions regarding this report, please contact the number below. For patients who have questions please contact the health personal care aide that requested your imaging first. Electronically signed by: Kimberley Pichardo MD, [facility] ([phone]), at 11/06/2021 6:47 AM XR Chest One [...] who have questions please contact the health personal care aide that requested your imaging first. Electronically signed by: Danielle Rausch MD, [facility] ([phone]), at 11/07/2021 9:56 AM XR Chest One [...] who have questions please contact the health personal care aide that requested your imaging first. Electronically signed by: Dinh Becerril MD, [facility] [facility] ([phone]), at 11/07/2021 9:33 AM XR Abdomen 1 [...] who have questions please contact the health personal care aide that requested your imaging first. Electronically signed by: Chandrakant Pena MD, [facility] ([phone]), at 11/07/2021 11:43 AM Medications Scheduled Meds: ??? clonazePAM 1 mg Oral Nightly ??? lisinopriL 10 mg Oral Daily ??? prazosin 2 mg Oral Nightly ??? ceFEPime (Maxipime) 2g vial attach to sodium chloride 0.9% 100 mL Mini-Bag Plus 2 g PpfjwuoisaxU8B ??? amLODIPine 10 mg Oral Daily ??? [...] vasospasm, BUE weakness and lower extremities paresthesias. HANDBAG FRAMER evaluated this AM; cleared for puree diet. [...] GI: - Continue TF with NG - HANDBAG FRAMER evaluation pending; then will resume PO - [...] notified, sitter ordered, psych consult in, and long term care social worker being contacted. PLAN MOVING FORWARD: MRI [...] Thin liquid via spoon, via straw ?? [place] thickened liquid via spoon, via straw ?? [...] oral care Pt will benefit from continued HANDBAG FRAMER services while hospitalized Speech Therapy Goals: (To be met by discharge) Pt will tolerate least restrictive diet without evidence of dysphagia / aspiration. Pt / caregiver will be independent with aspiration precautions, diet modifications, and safe swallowing strategies. Pt. will take part in full cognitive / language evaluation. Plan: Therapy Frequency (HANDBAG FRAMER Eval): 2-4 times/wk Pt./family are in agreement with treatment plan. Total Minutes (Speech Language Pathology): 18 Thank you for this consult with this patient. Please feel free to page me with any questions or concerns. Dianna Tomlinson MA, [facility]-HANDBAG FRAMER Pager: [phone] Speech-Language Pathology Inpatient Rehabilitation Medicine * Jewels [...] Reason for intervention: ICU Tube-feeding Nutrition Recommendations: HANDBAG FRAMER cx pending Pt is NPO X 5 [...] discuss plan with provider Agnes Zurita MD #[id number] via secure chat. All Active TF Orders: [...] medications: prn Miralax, Dulcolax Last Bowel Movement: ([employer]ICE [employer]IDENT MARKETING [employer] DEVELOPMENT) I/O from last 2 shifts: Intake/Output Summary [...] encounter: 81 kg (178 lb 9.2 oz). 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 HANDBAG FRAMER cx pending Estimated needs: Calories: 3872-5473 (20-25 kcal/kg UBW) Protein: 90-120 grams (1.5- 2.0 kg IBW) Tolerance or barriers to meeting needs: no BM since admit Nutrition Focused Physical Exam (NFPE): Not performed Protein-calorie Malnutrition: Not enough data to assess (Cami JPZACK J Parenteral Enteral Nutr. 2012 February; 36(3): 273-83) Nutrition to continue to follow up while inpatient [address] Pager #:[phone] * Valorie Obrien MD - 11/08/2021 5:20 AM EST Images from the original note were not included. Cardiology ICU Progress Note? I have seen and examined this patient and discussed with the internet marketer, resident, fellow. ??I agree with the plan [...] ~ 480 or less. ??She presented to [facility] in Sep 2021 with chest pain but r/o for [place]. ??She had COVID in 2020 (she was not vaccinated). ??See note below with history provided by Ms. Lundy's mother. ?? Initial venous pH 7.09 lactate 65. ??CK 135, d-dimer 5000 (r/o for PE), Serum creatinine 1.55 (baseline ~ 1.0), hemoglobin 12.4, platelets 298, WBC 25, AST 72 ??ALT 79. ??Troponin 0.02. ?? Shortly after 3 pm??FridayNov 05, Dr. Marek Alves, equipment operat0r was bedside when she again went into [...] about ICD. ? Valorie Obrien MD, Naye, [facility] Cardiology Attending? Patient info: Name: Aniya Lundy : 1985 PCP: Kenia Lawrence APRN PCP phone number: [phone] Date of Admission: 11/04/2021 ( Hospital Day [...] 1759 PHART 7.34* 7.23* 7.25* 7.24* 7.23* [id number] 37 46* 40 42 43 PO2ART 88 90 117* 80* 71* JMU9YBQ 19.2* 18.6* 17.0* 17.6* 17.6* LACTATEVEN 0.6 0.4* 0.5 0.9 1.7 FPO2HNI 40 50 70 80 70 PFRATIOART2 220 180 167 100 101 VBG (Venous Blood Gas) Recent Labs 11/07/21 0940 11/07/21 0630 11/07/2120611/06/21204311/06/21 1759 11/04/21 0843 11/04/21 0733 PHVEN -- -- -- -- -- -- 7.09* KAR8JMY -- -- -- -- -- -- 66* PO2VEN -- -- -- -- -- -- 31 JES2GAU -- -- -- -- -- -- 19.7 LACTATEVEN 0.6 0.4* 0.5 0.9 1.7 < > 6.5* < > = values in this interval not displayed. Mixed Venous Sat No results for input(s): G3JJQM9 in the last 168 hours. Objective: Vitals [...] Lines/Drains/Airways - ETT - central line - [place] - LDA Cath/EP sheath - Intra-aortic balloon [...] 1759 PHART 7.34* 7.23* 7.25* 7.24* 7.23* MUV8JCR 37 46* 40 42 43 PO2ART 88 90 117* 80* 71* CAV9QPR 19.2* 18.6* 17.0* 17.6* 17.6* LACTATEVEN 0.6 0.4* 0.5 0.9 1.7 KYW0KPF 40 50 70 80 70 PFRATIOART2 220 180 167 100 101 VBG (Venous Blood Gas) Recent Labs 11/07/21 0940 11/07/21 0630 11/07/21 0207 11/06/21 2044 11/06/21 1759 11/04/21 0843 11/04/21 0733 PHVEN -- -- -- -- -- -- 7.09* QDC2YGF -- -- -- -- -- -- 66* PO2VEN -- -- -- -- -- -- 31 FHN5CQT -- -- -- -- -- -- 19.7 LACTATEVEN 0.6 0.4* 0.5 0.9 1.7 < > 6.5* < > = values in this interval not displayed. Mixed Venous Sat No results for input(s): A7FFVY0 in the last 168 hours. Microbiology: Microbiology Results (Last 30 days) Procedure Component Value Units Date/Time Blood culture [[id number]] Collected: 11/06/211999 Lab Status: Preliminary result Specimen: Blood from Hand, Left Updated: 11/07/212300 Blood Culture No growth at 1 day. Blood culture [[id number]] Collected: 11/06/21 184 Lab Status: Preliminary result Specimen: Blood Updated: 11/07/212300 Blood Culture No growth at 1 day. Lower Respiratory Culture Tracheal Aspirate [[id number]] Collected: 11/06/21 1220 Lab Status: Preliminary result Specimen: Tracheal Aspirate Updated: 11/07/21 1420 Lower Respiratory Culture Many mixed bacterial morphotypes suggestive of normal upper respiratory al Gram Stain -- Many Neutrophils seen Few squamous epithelial cells seen Many mixed bacterial morphotypes suggestive of normal upper respiratory al Blood culture [[id number]] Collected: 11/04/21 2250 Lab Status: Preliminary result Specimen: Blood from Hand, Right Updated: 11/07/21 230 Blood Culture No growth at 3 days. Blood culture [[id number]] Collected: 11/04/21 2215 Lab Status: Preliminary result Specimen: Blood from Antecubital, Right Updated: 11/07/21 230 Blood Culture No growth at 3 days. COVID-19 PCR [[id number]] Collected: 11/04/21 0735 Lab Status: Final result [...] using the Simplexa COVID-19 Direct Assay by [facility] as authorized by the FDA issued Emergency [...] Department of Pathology and Laboratory Medicine at [facility], certified under the Clinical Laboratory Improvement [...] fact sheets at the following FDA website: https://www.fda.gov/medical-devices/qzhaywmvrkc-wfwmwmu-3187-qyizp-33-ralvxjjvp- cll-yxnuyevladhtvl-wjbbkox-devices/giazr-vkclbummbqq-lvxz SARS-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 TECHNOLOGY Swab Imaging: Results for orders placed or [...] who have questions please contact the health personal care aide that requested your imaging first. Electronically signed by: JIM CARL MD, [facility] ([phone]), at 11/04/2021 10:18 AM XR Abdomen 1 view (Generic) (Exam End: 11/04/2021 10:09 AM) Impression Orogastric tube placement, as above. Thank you for letting us participate in the care of this patient. If you are a health care provider and have any questions regarding this report, please contact the number below. For patients who have questions please contact the health personal care aide that requested your imaging first. Electronically signed by: JIM CARL MD, [facility] ([phone]), at 11/04/2021 10:[address] Head wo [...] who have questions please contact the health personal care aide that requested your imaging first. Electronically signed by: Alejo Garcia MD, [facility] ([phone]), at 11/04/2021 9:[address] Angiogram Chest [...] who have questions please contact the health personal care aide that requested your imaging first. Electronically signed by: JIM CARL MD, [facility] ([phone]), at 11/04/2021 9:52 AM XR Chest One [...] who have questions please contact the health personal care aide that requested your imaging first. Electronically signed by: Jennifer Bassett MD, [facility] ([phone]), at 11/04/2021 8:53 PM XR Chest One [...] who have questions please contact the health personal care aide that requested your imaging first. Electronically signed by: Danielle Rausch MD, [facility] ([phone]), at 11/05/2021 9:48 AM XR Chest One View (Exam End: 11/06/2021 6:36 AM) Impression * Equipment as above. * Mild pulmonary vascular congestion. Thank you for letting us participate in the care of this patient. If you are a health care provider and have any questions regarding this report, please contact the number below. For patients who have questions please contact the health personal care aide that requested your imaging first. Electronically signed by: Kimberley Pichardo MD, [facility] ([phone]), at 11/06/2021 6:47 AM XR Chest One [...] who have questions please contact the health personal care aide that requested your imaging first. Electronically signed by: Danielle Rausch MD, [facility] ([phone]), at 11/07/2021 9:56 AM XR Chest One [...] who have questions please contact the health personal care aide that requested your imaging first. Electronically signed by: Dinh Becerril MD, [facility] ([phone]), at 11/07/2021 9:33 AM XR Abdomen 1 [...] who have questions please contact the health personal care aide that requested your imaging first. Electronically signed by: Chandrakant Pena MD, [facility] ([phone]), at 11/07/2021 11:43 AM Medications Scheduled Meds: ??? ceFEPime (Maxipime) 2g vial attach to sodium chloride 0.9% 100 mL Mini-Bag Plus 2 g DweamvuoewwG2T ??? amLODIPine 5 mg Oral Daily ??? [...] dose oral CCB and wean off nicardipine. HANDBAG FRAMER will evaluate today and hopefully resume diet [...] GI: - Continue TF with NG - HANDBAG FRAMER evaluation pending; then will resume PO - [...] AM ESTSummary: 11/07 Patient transferred laterally from [facility], neuro checks, slow speech moves all extremities [...] disease Added automatically from request for surgery [id number] ??? Chest pain ETT 2013- negative ST [...] this patient and discussed with the internet marketer, resident, fellow. ??I agree with the plan [...] 2021 with chest pain but r/o for [place]. ??She had COVID in 2020 (she was not vaccinated). ??See note below with history provided by Ms. Lunyd's mother. ?? Initial venous pH 7.09 lactate 65. ??CK 135, d-dimer 5000 (r/o for PE), Serum creatinine 1.55 (baseline ~ 1.0), hemoglobin 12.4, platelets 298, WBC 25, AST 72 ??ALT 79. ??Troponin 0.02. ?? Shortly after 3 pm??FridayNov 05, Dr. Marek Alves, equipment operat0r was bedside when she again went into [...] about ICD. ? Valorie Obrien MD, Naye, [facility] Cardiology Attending? Patient info: Name: Aniya Lundy : 1985 PCP: Kenia Lawrence APRN PCP phone number: [phone] Date of Admission: 11/04/2021 ( Hospital Day [...] 0746 PHART 7.25* 7.24* 7.23* 7.33* 7.29* LAB8CXY 40 42 43 34* 40 PO2ART 117* 80* 71* 67* 62* AYJ7IJD 17.0* 17.6* 17.6* 17.5* 18.9* LACTATEVEN 0.5 0.9 1.7 0.8 0.9 HOK7QBC 70 80 70 50 40 PFRATIOART2 167 100 101 134 155 VBG (Venous Blood Gas) Recent Labs 11/07/21 0207 11/06/21 2044 11/06/21 1759 11/06/21 1433 11/06/21 0746 11/04/21 0843 11/04/21 0733 PHVEN -- -- -- -- -- -- 7.09* PTD2PBN -- -- -- -- -- -- 66* PO2VEN -- -- -- -- -- -- 31 KFM7XWQ -- -- -- -- -- -- 19.7 LACTATEVEN 0.5 0.9 1.7 0.8 0.9 < > 6.5* < > = values in this interval not displayed. Mixed Venous Sat No results for input(s): I4YVYO6 in the last 168 hours. Objective: Vitals [...] Lines/Drains/Airways - ETT - central line - [place] - LDA Cath/EP sheath - Intra-aortic balloon [...] 0746 PHART 7.25* 7.24* 7.23* 7.33* 7.29* IQI8JMD 40 42 43 34* 40 PO2ART 117* 80* 71* 67* 62* TVD1ABM 17.0* 17.6* 17.6* 17.5* 18.9* LACTATEVEN 0.5 0.9 1.7 0.8 0.9 VDL2GAI 70 80 70 50 40 PFRATIOART2 167 100 101 134 155 VBG (Venous Blood Gas) Recent Labs 11/07/21 0207 11/06/21 2044 11/06/21 17511/06/21 1433 11/06/21 0746 11/04/21 0843 11/04/21 0733 PHVEN -- -- -- -- -- -- 7.09* JEO5FUK -- -- -- -- -- -- 66* PO2VEN -- -- -- -- -- -- 31 HZK1IEK -- -- -- -- -- -- 19.7 LACTATEVEN 0.5 0.9 1.7 0.8 0.9 < > 6.5* < > = values in this interval not displayed. Mixed Venous Sat No results for input(s): B6MAJK5 in the last 168 hours. Microbiology: Microbiology Results (Last 30 days) Procedure Component Value Units Date/Time Lower Respiratory Culture Tracheal Aspirate [[id number]] Collected: 11/06/21 1220 Lab Status: Preliminary result Specimen: Tracheal Aspirate Updated: 11/06/21 143 Gram Stain -- Many Neutrophils seen Few squamous epithelial cells seen Many mixed bacterial morphotypes suggestive of normal upper respiratory al Blood culture [[id number]] Collected: 11/04/21 2250 Lab Status: Preliminary result Specimen: Blood from Hand, Right Updated: 11/06/21 2301 Blood Culture No growth at 2 days. Blood culture [[id number]] Collected: 11/04/21 2215 Lab Status: Preliminary result Specimen: Blood from Antecubital, Right Updated: 11/06/21 2301 Blood Culture No growth at 2 days. COVID-19 PCR [[id number]] Collected: 11/04/21 0735 Lab Status: Final result [...] using the Simplexa COVID-19 Direct Assay by [facility] as authorized by the FDA issued Emergency [...] Department of Pathology and Laboratory Medicine at [facility], certified under the Clinical Laboratory Improvement [...] fact sheets at the following FDA website: https://www.fda.gov/medical-devices/ebtznsyuzug-pfwoygg-0215-xdetg-82-euoyeexwd- nfc-jqtgnutgjykeby-yuiahmk-devices/auhio-idqpsyoxfkf-jkyu SARS-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 TECHNOLOGY Swab Imaging: Results for orders placed or [...] who have questions please contact the health personal care aide that requested your imaging first. Electronically signed by: JIM CARL MD, [facility] ([phone]), at 11/04/2021 10:18 AM XR Abdomen 1 view (Generic) (Exam End: 11/04/2021 10:09 AM) Impression Orogastric tube placement, as above. Thank you for letting us participate in the care of this patient. If you are a health care provider and have any questions regarding this report, please contact the number below. For patients who have questions please contact the health personal care aide that requested your imaging first. Electronically signed by: JIM CARL MD, [facility] ([phone]), at 11/04/2021 10:[address] Head wo [...] who have questions please contact the health personal care aide that requested your imaging first. Electronically signed by: Alejo Garcia MD, [facility] ([phone]), at 11/04/2021 9:[address] Angiogram Chest [...] who have questions please contact the health personal care aide that requested your imaging first. Electronically signed by: JIM CARL MD, [facility] ([phone]), at 11/04/2021 9:52 AM XR Chest One [...] who have questions please contact the health personal care aide that requested your imaging first. Electronically signed by: Jennifer Bassett MD, [facility] ([phone]), at 11/04/2021 8:53 PM XR Chest One [...] who have questions please contact the health personal care aide that requested your imaging first. Electronically signed by: Danielle Rausch MD, [facility] ([phone]), at 11/05/2021 9:48 AM XR Chest One View (Exam End: 11/06/2021 6:36 AM) Impression * Equipment as above. * Mild pulmonary vascular congestion. Thank you for letting us participate in the care of this patient. If you are a health care provider and have any questions regarding this report, please contact the number below. For patients who have questions please contact the health personal care aide that requested your imaging first. Electronically signed by: Kimberley Pichardo MD, [facility] ([phone]), at 11/06/2021 6:47 AM Medications Scheduled Meds: [...] 0.9% 100 mL Mini-Bag Plus 2 g HkuxafpuhzaO28C ??? metroNIDAZOLE 500 mg Intravenous Q8H SONALI [...] #[id number] 11/07/21 9:22 AM * Lori Gilbert [facility] - 11/07/2021 5:10 AM EST AMV Protocol [...] tolerated. Lori Gilbert RCP * Noah Deluna DOOR PERSON - 11/06/2021 5:57 PM EST AMV Protocol: [...] this patient and discussed with the internet marketer, resident, fellow. ??I agree with the plan [...] 2021 with chest pain but r/o for [place]. ??She had COVID in 2020 (she was not vaccinated). ??See note below with history provided by Ms. Lundy's mother. ?? Initial venous pH 7.09 lactate 65. ??CK 135, d-dimer 5000 (r/o for PE), Serum creatinine 1.55 (baseline ~ 1.0), hemoglobin 12.4, platelets 298, WBC 25, AST 72 ??ALT 79. ??Troponin 0.02. ?? Shortly after 3 pm FridayNov 05, Dr. Marek Alves, equipment operat0r was bedside when she again went into [...] about ICD. ? Valorie Obrien MD, Naye, [facility] Cardiology Attending? Patient info: Name: Aniya Lundy : 1985 PCP: Kenia Lawrence APRN PCP phone number: [phone] Date of Admission: 11/04/2021 ( Hospital Day [...] 0805 PHART 7.29* 7.21* 7.36 7.26* 7.38 RWI3RYA 40 46* 34* 46* 31* PO2ART 62* 66* 71* 85 92 DAW1LLO 18.9* 18.1* 18.6* 20.1 17.5* LACTATEVEN 0.9 0.8 1.0 0.7 0.8 CDJ9RLB 40 40 40 40 40 PFRATIOART2 155 165 178 212 230 VBG (Venous Blood Gas) Recent Labs 11/06/21 0746 11/06/21 0428 11/05/21 1653 11/05/21 1406 11/05/21 0805 11/04/21 0843 11/04/21 0733 PHVEN -- -- -- -- -- -- 7.09* LLS7QNT -- -- -- -- -- -- 66* PO2VEN -- -- -- -- -- -- 31 DDT5CTW -- -- -- -- -- -- 19.7 LACTATEVEN 0.9 0.8 1.0 0.7 0.8 < > 6.5* < > = values in this interval not displayed. Mixed Venous Sat No results for input(s): I7ANFX7 in the last 168 hours. Objective: Vitals [...] Lines/Drains/Airways - ETT - central line - [place] - LDA Cath/EP sheath - Intra-aortic balloon [...] 0805 PHART 7.29* 7.21* 7.36 7.26* 7.38 QXP4LPF 40 46* 34* 46* 31* PO2ART 62* 66* 71* 85 92 BEG7JRG 18.9* 18.1* 18.6* 20.1 17.5* LACTATEVEN 0.9 0.8 1.0 0.7 0.8 QRB5TGH 40 40 40 40 40 PFRATIOART2 155 165 178 212 230 VBG (Venous Blood Gas) Recent Labs 11/06/21 0746 11/06/21 0428 11/05/21 1653 11/05/21 1406 11/05/21 0805 11/04/21 0843 11/04/21 0733 PHVEN -- -- -- -- -- -- 7.09* NNJ7VQB -- -- -- -- -- -- 66* PO2VEN -- -- -- -- -- -- 31 UBC4NCW -- -- -- -- -- -- 19.7 LACTATEVEN 0.9 0.8 1.0 0.7 0.8 < > 6.5* < > = values in this interval not displayed. Mixed Venous Sat No results for input(s): D0UDOR6 in the last 168 hours. Microbiology: Microbiology Results (Last 30 days) Procedure Component Value Units Date/Time Blood culture [[id number]] Collected: 11/04/21 2250 Lab Status: Preliminary result Specimen: Blood from Hand, Right Updated: 11/05/212300 Blood Culture No growth at 1 day. Blood culture [[id number]] Collected: 11/04/21 2215 Lab Status: Preliminary result Specimen: Blood from Antecubital, Right Updated: 11/05/21 230 Blood Culture No growth at 1 day. COVID-19 PCR [[id number]] Collected: 11/04/21 0735 Lab Status: Final result [...] using the Simplexa COVID-19 Direct Assay by [facility] as authorized by the FDA issued Emergency [...] Department of Pathology and Laboratory Medicine at [facility], certified under the Clinical Laboratory Improvement [...] fact sheets at the following FDA website: https://www.fda.gov/medical-devices/xrqvrjyjhlv-snuaubd-7900-pedkj-08-dvvwsnwcm- cvu-eaumqppgjkoplr-vnynwqa-devices/rbbgb-rmtvqfkdepv-ssmr SARS-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 TECHNOLOGY Swab Imaging: Results for orders placed or [...] who have questions please contact the health personal care aide that requested your imaging first. Electronically signed by: JIM CARL MD, [facility] ([phone]), at 11/04/2021 10:18 AM XR Abdomen 1 view (Generic) (Exam End: 11/04/2021 10:09 AM) Impression Orogastric tube placement, as above. Thank you for letting us participate in the care of this patient. If you are a health care provider and have any questions regarding this report, please contact the number below. For patients who have questions please contact the health personal care aide that requested your imaging first. Electronically signed by: JIM CARL MD, [facility] ([phone]), at 11/04/2021 10:[address] Head wo [...] who have questions please contact the health personal care aide that requested your imaging first. Electronically signed by: Alejo Garcia MD, [facility] ([phone]), at 11/04/2021 9:[address] Angiogram Chest [...] who have questions please contact the health personal care aide that requested your imaging first. Electronically signed by: JIM CARL MD, [facility] ([phone]), at 11/04/2021 9:52 AM XR Chest One [...] who have questions please contact the health personal care aide that requested your imaging first. Electronically signed by: Jennifer Bassett MD, [facility] ([phone]), at 11/04/2021 8:53 PM XR Chest One [...] who have questions please contact the health personal care aide that requested your imaging first. Electronically signed by: Danielle Rausch MD, [facility] ([phone]), at 11/05/2021 9:48 AM XR Chest One View (Exam End: 11/06/2021 6:36 AM) Impression * Equipment as above. * Mild pulmonary vascular congestion. Thank you for letting us participate in the care of this patient. If you are a health care provider and have any questions regarding this report, please contact the number below. For patients who have questions please contact the health personal care aide that requested your imaging first. Electronically signed by: Kimberley Pichardo MD, [facility] ([phone]), at 11/06/2021 6:47 AM Medications Scheduled Meds: [...] increased secretions overnight RT SHAHID * Johanne Tobias RN - 11/05/2021 8:15 PM EST [...] disease Added automatically from request for surgery [id number] ??? Chest pain ETT 2014- negative ST [...] this patient and discussed with the internet marketer, resident, fellow. I agree withthe plan noted [...] ~ 480 or less. She presented to [facility] in Sep 2021 with chest pain but r/o for [place]. She had COVID in 2020 (she was not vaccinated). See note below with history provided by Ms. Lundy's mother. ?? Initial venous pH 7.09 lactate 65. CK 135, d-dimer 5000 (r/o for PE), Serum creatinine 1.55 (baseline ~ 1.0), hemoglobin 12.4, platelets 298, WBC 25, AST 72 ALT 79. Troponin 0.02. ?? Shortly after 3 pm FridayNov 05, Dr. Marek Alves, equipment operat0r was bedside when she again went into [...] about ICD. ?? Valorie Obrien MD, Naye, [facility] Cardiology Attending ?? Admit Date: 11/04/2021 Aniya Lundy is a 36 y.o. female With history of bipolar disorder and recent COVID who presented with cardiac arrest with subsequent repeat arrest with transient ST elevations followed by VT/VF arrest who was found to have diffuse vasospasm in all arterial beds on [facility] undergoing hypothermia protocol and on treatment for vasospasm. Interval events / Subjective: - Started on nicardipine post-cath. - [facility] with IABP and PAC placement. [...] 850 started. Pt was then taken to calibration laboratory technician. Upon arrival back to unit, unable to dopple rt pedal pulse. Team notified, vascular and calibration laboratory technician team consulted, unable to doppel pulses in RTLE.film processing shift supervisor notified. Xrays ordered for swan/ett/IABP placement/confirmation. * Frances lAatorre MD - 11/04/2021 6:03 PM EST Preliminary [...] before the patient was take to the calibration laboratory technician. Full report to follow in the morning. Frances Alatorre MD Clinical Neurophysiology Fellow * [facility] PROGRAM MANAGEMENT OFFICER - 11/04/2021 3:30 PM EST Respiratory Care [...] to 18 per ABG. Pt transported to [facility] [address] RCP * Haley Murphy, [facility] - 11/04/2021 9:16 AM EST Social Work Note: ED FLEECE TIER spoke with Zay Lozano via phone [phone]. Blake shared he feels traumatized by the [...] anxiety and stress. Engaged easily with this screen writer and was welcoming of support. HAROON Subramanian, [facility] Clinical Act English Tutor Office of Care Management [phone] #[phone] documented in this encounter H&P Notes * [...] not have any first degree relatives with KS history. The indications, expected benefits, and potential [...] is in the chart. - Aspirin 300mg MO given - Heparin bolus and drip given - Amiodarone 300mg bolus then drip started - mobile lab technician alert called (discussed with Drs. Obrien and Lorie) - Consent reviewed and signed - No obvious CI to DAPT - Sedation plan: on propofol and fentanyl - FULL CODE Uday Alves MD 11/04/2021 3:37 PM * Valorie Obrien MD - 11/04/2021 1:14 PM EST Images from the original note were not included. [facility] [place] [id number] ? INPATIENT CARDIOLOGY ADMISSION H&P ? Date of Consultation: 11/04/2021 Admit Date: 11/04/2021 ?? I have seen and examined this patient and discussed with the internet marketer, resident, fellow. I agree withthe plan noted [...] 2021 with chest pain but r/o for KS. She had COVID in 2020 (vaccination status unclear). See note below with history provided by Ms. Lundy's mother. Initial venous pH 7.09 lactate 65. CK 135, d-dimer 5000 (r/o for PE), Serum creatinine 1.55 (baseline ~ 1.0), hemoglobin 12.4, platelets 298, WBC 25, AST 72 ALT 79. Troponin 0.02. Shortly after 3 pm today, Dr. Marek Alves, equipment operat0r was bedside when she again went into Vfib.While the etiology of her arrest is still not clear (she is at relatively low risk for obstructive coronary artery disease), I feel that defining her coronary anatomy is reasonable. We will also havea formal echocardiogram. Valorie Obrien MD, Naye, [facility] Cardiology Attending ?? Hospital Day 0 days [...] months. Aniya had a recent visit to [facility] ED in mid September with sharp chest [...] ENDOSCOPY performed by Dudley Alva MD at [facility] ENDOSCOPY ? Allergies Allergen Reactions ??? [...] Date ED from 11/04/2021 in Emergency Department [facility] ED from 10/10/2021 in Emergency Services [...] urine output and electrolytes, no need for DOOR PERSON at this time ?? GI - Place OGT - Stress ulcer ppx ?? ID - Will obtain blood cultures, no concern for active infection at this time based on history ? FULL CODE Nex of kin: Mother Shannon [phone] (verbal consent for central line obtained) ? Uday (Cielo) MD [facility] Fellow Pager [phone] ? documented in this encounter Procedure Notes * Leonora Mandujano MD - 11/08/2021 1:47 PM ESTAssociated Order(s): EEG 24 HOUR MONITORING, PORTABLE [facility] Department of Neurology Inpatient Continuous EEG [...] oiL (Eucerin) cream Topical (Top) Q8H SONALI Udya Alves MD Given at 11/06/21 2200 ??? [...] EKG. Video was recorded during the session. BEAUTY DIRECTOR'S REPORT: Performed by: Leon Clark At the onset of the recording the patient was Intubated. Movement and other artifact was not significant. Comments:None [facility] Department of Neurology Critical Care Continuous EEG Report Patient: Aniya Lundy, [id number] Date: 11/08/21 Start Time: 05:00 11/07/2021 End [...] - I reviewed the EEG with the FIELD RECRUITER/Epilepsy fellow, and I agree with the interpretation as documented. Darien Zavala MD, PhD Professor of Neurology [facility] Clinical Neurophysiology Laboratory [facility] * Leonora Mandujano MD - 11/08/2021 1:36 PM EST [facility] Department of Neurology Inpatient Continuous EEG [...] solution 15 mL 15 mL Oral BID Uady Alves MD 15 mL at 11/08/21 0810 [...] EKG. Video was recorded during the session. BEAUTY DIRECTOR'S REPORT: Performed by: Leon Clark At the onset of the recording the patient was Intubated. Movement and other artifact was not significant. Comments:None [facility] Department of Neurology Critical Care Continuous EEG Report Patient: Aniya Lundy, [id number] Date: 11/08/21 Start Time: 05:00 11/07/2021 End [...] - I reviewed the EEG with the FIELD RECRUITER/Epilepsy fellow, and I agree with the interpretation as documented. Darien Zavala MD, PhD Professor of Neurology [facility] Clinical Neurophysiology Laboratory [facility] * Leonora Mandujano MD - 11/07/2021 12:23 PM EST [facility] Department of Neurology Inpatient Continuous EEG [...] 20 mg 20 mg Oral BID Uday Avles MD 20 mg at 11/07/21 0948 ??? [...] EKG. Video was recorded during the session. BEAUTY DIRECTOR'S REPORT: Performed by: Leon Clark At the onset of the recording the patient was Intubated. Movement and other artifact was not significant. Comments:None [facility] Department of Neurology Critical Care Continuous EEG Report Patient: Aniya Lundy, [id number] Date: 11/07/21 Start Time: 05:00 11/06/2021 End [...] - I reviewed the EEG with the FIELD RECRUITER/Epilepsy fellow, and I agree with the interpretation as documented. Darien Zavala MD, PhD Professor of Neurology [facility] Epilepsy [facility] Clinical Neurophysiology Laboratory [facility] * Tameka Spann MD - 11/06/2021 [...] to the planned procedure. Hand Hygiene: The pillow filler did perform hand hygiene prior to arterial [...] Mandujano MD - 11/06/2021 12:33 PM EST [facility] Department of Neurology Inpatient Continuous EEG [...] 0.9% 100 mL Mini-Bag Plus 1 g [id number] Tameka Spann MD Stopped at 11/06/21 0837 [...] suppository 975 mg 975 mg Rectal Q8H [facility] Richard Asher MD ??? fentaNYL (PF) (50 [...] mg/mL) infusion 0-50 mcg/kg/min Intravenous Continuous Uday lAves MD 21 mL/hr at 11/06/21 1200 50 [...] EKG. Video was recorded during the session. BEAUTY DIRECTOR'S REPORT: Performed by: Leon Clark At the onset of the recording the patient was Intubated. Movement and other artifact was not significant. Comments:None [facility] Department of Neurology Critical Care Continuous EEG Report Patient: Aniya Lundy, [id number] Date: 11/06/21 Start Time: 05:00 11/05/2021 End [...] - I reviewed the EEG with the FIELD RECRUITER/Epilepsy fellow, and I agree with the interpretation as documented. Darien Zavala MD, PhD Professor of Neurology [facility] Clinical Neurophysiology Laboratory [facility] * Darien Zavala MD - 11/05/2021 9:32 AM EST [facility] Department of Neurology Inpatient Continuous EEG [...] EKG. Video was recorded during the session. BEAUTY DIRECTOR'S REPORT: Performed by: Leon Clark At the onset of the recording the patient was Intubated. Movement and other artifact was not significant. Comments:None [facility] Department of Neurology Critical Care Continuous EEG Report Patient: Aniya Lundy, [id number] Date: 11/05/21 Start Time/End time: 11/04/21 11:04 [...] - I reviewed the EEG with the FIELD RECRUITER/Epilepsy fellow, and I agree with the interpretation as documented. Darien Zavala MD, PhD Professor of Neurology [facility] Clinical Neurophysiology Laboratory [facility] documented in this encounter Nursing Notes [...] EST Mother called. Updated from Attending MD. [phone] would appreciate updates. * Horace Nielsen MD [...] eye gel and it was removed with yeq-aevkd-obvn ventilation followed by jaw thrust and end-tidal [...] She was most recently seen at [facility] emergency department onOctober 10, 2021 for atypical chest pain with an unremarkable work-up. I spoke to her other at 8:15. She knows that she has been having intermittent chest pain and possible GI symptoms. Reporrst Call back is [phone] Spoke to dk at 8:40. Woke Dk [...] 11/04/2021 7:27 AM EST ZAY Lozano - [phone] In car in parking lot, has medication [...] - EP will sign off. Please page [phone] with questions or concerns. ?? Needs for Transition of Care: Plan for discharge is: Home w/ Services Home Health Services: Physical Therapy, Registered Nurse Agency Referrals & Follow-up Care: RN CM and patient/financial services representative discussed agencies which serve their preferred geographic area. affiliations were identified and they were educated about their right to choose where referrals are placed. Patient requests referral to [facility] PHONE: [phone] FAX: [phone] RN/ PT Patient requests referral to Ortho Care Located @ [facility] Center [place], [place] [facility] Expected date of discharge: 11/14/2021 Referral routed to the Fruit Grader for matching with agency/vendor and to provide any required information. Transportation: family or friend will provide Mother Shannon Zamora [phone] Functional status prior to admission: Independent Home Environment: Others in the home: friend(s) (Dk Mos, boyfriend, intermittently stays at [facility] apartment.). Current Living Arrangements: home/apartment/condo. Accessibility Concerns:No [...] Insurance: N/A Prescription Coverage: Yes Preferred Pharmacy: [facility] [address] [place] [id number] [address] [id number] [place], [place] - [address] [facility] [address] [facility] [phone] [facility] [address] - [place], [place] - [address] [place] [address] This plan was formulated with input from patient, and team. All are in agreement with plan. Lula Pimentel director of procurement M-[place] * Care Management - Sherry Arriola [...] Insurance: N/A Prescription Coverage: Yes Preferred Pharmacy: [facility] [address] [place] [id number] [address] [facility] [address] - [place], [place] - [address] [facility] [address] Last Physical Therapy Recommendation: acute rehabilitation facility with to be determined Last Occupational Therapy Recommendation: with Plan for discharge is: Pending Hospital Course and PT/OT Recommendations Agency Referrals & Follow-up Care: Pending hospital course. Transportation: Shannon [place] (Mother) Barriers to discharge: TBD Plan going [...] hosptial. Working with Brenda polanco APRN in [facility] and also has a therapist there. [...] ALIRIO Bipolar PTSD Past hospitalization and location: [id number] multiple at [facility] and [facility] May 2020 [facility] - [facility] w/o plan or intent Suicide [...] ENDOSCOPY performed by Dudley Alva MD at [facility] ENDOSCOPY Medications: Current Facility-Administered Medications Medication [...] tablet 40 mg 40 mg Oral QPM Jrerod Muse MD 40 mg at 11/08/21 162 [...] of breath GI: no constipation or diarrhea /INSTRUMENT REPAIRER (include LMP if applicable): no issues urinating (catheter in place) Musculoskeletal: +muscle aches Integumentary: no rashes Neurological: +confusion, +memory issues Psychiatric: See above Social History: Has three children. Son is 18 yo and lives with his girlfriend. One daughter lives with patient's sister. Other daughter with patient's sister and grandmother. Lives in [place]. Sometimes her boyfriend stays there. Per H&P [...] slightly slowed rhythm ?? Language: fluent in thai, without paraphasic errors and without word finding [...] - Psychiatry will sign off, please page [phone] with any concerns Patient on IEA Status? IEA: NO, patient is not on IEA and does not have any psychiatric contraindication to discharge at the time of this assessment. Recommendations were communicated to primary steam cleaner Prashant Johnson MD. Signed By: Yolanda Rahman [...] CPT CODE PF PF Straightforward 3200 / 30714 EPF EPF Straightforward 3210 / 55714 D D Low 3220 / 98688 C C Moderate 3230 / 93454 C C High 3240 / 27381 Associated attestation - Bert Huynh MD - [...] team. Bert Huynh MD Psychiatry Consultation Pager: [phone] * Consult Note - Cassidy Bowser RN - 11/09/2021 11:37 AM EST Cardiac rehab consult received on this patient with DX: Cardiac arrest. Patient has other medical and social issues that need to be managed first. PT/OT consults in place. Outpatient cardiac rehab referral can be reconsidered in the future. * Consult Note - Jono Prieto, [facility] - 11/08/2021 4:56 PM EST ?? The [...] Alternately, during off-hours you nat ruano call [phone] to contact a pharmacist. * Consult Note [...] ENDOSCOPY performed by Dudley Alva MD at [facility] ENDOSCOPY Medications: Scheduled Meds: ??? ceFEPime (Maxipime) 2g vial attach to sodium chloride 0.9% 100 mL Mini-Bag Plus 2 g [id number] ??? amLODIPine 5 mg Oral Daily ??? [...] L Elbow flexion 5/5 R, 5/5 L Network Operations Technician LE: 5/5 R, 5/5 L Hip flexion [...] Morgan Malin MD 11/08/2021 Consult Neurology Pager [phone] Associated attestation - Tiffany Unger DO - [...] medically able. Tiffany Unger D.O. Neurology Department [facility] [email or web address] * Consult Note - Pantera Denton MD [...] Note: Added automatically from request for surgery [id number] ??? Borderline personality disorder ??? Post-traumatic stress [...] prior to ROSC. She was transported to [facility] where she sometime on FridayNovember 05 went [...] 100 mL infusion 500 mg Intravenous Q8H [facility] Yonas Olivares MD 200 mL/hr at 11/08/21 [...] 2027 Attending: Pantera Denton MD Service Pager: [phone] Addendum I personally interviewed and examined the patient. There was limited history available from Ms. Lundy. As noted above she presented with out of hospital VF arrest, with further VF episodes while in the calibration laboratory technician and on the unit. The only associated [...] obstructive CAD. ?? CRP 29.1, ESR <3, DARAIN <1:80, NILAY neg. During cardiac cath yesterday, [...] ENDOSCOPY performed by Dudley Alva MD at [facility] ENDOSCOPY FamHx: Patient's mother does endorse [...] visualize her capillaries. She does have nail faroese on. Extremities: Warm and well perfused, 2+ [...] further evaluation of this. Infectious etiologies include [id number] infection coronary vasospasm which has been previously [...] in a COVID- 19 patient. CatheterCardiovasc Interv. 2020;97(5):U422-Q118. Doi:10.1002/ccd.83142. (2) Jass Layne, Onur Torres, Tan Layne. [...] of our diseases. Michael Pak MD Staff Supervisor Rework * Consult Note - Jhony Regan, DO [...] ENDOSCOPY performed by Dudley Alva MD at [facility] ENDOSCOPY Medications: Scheduled Meds: ??? Vancomycin Level - MAR Order Reminder NOT APPLICABLE Once ??? LORazepam 1 mg Intravenous Q8H ??? lidocaine 3 patch Transdermal Q24H And ??? lidocaine 3 patch Transdermal Q24H ??? ceFEPime (Maxipime) 2g vial attach to sodium chloride 0.9% 100 mL Mini-Bag Plus 2 g [id number] ??? metroNIDAZOLE 500 mg Intravenous Q8H SONALI [...] Ratio Art 167 Diagnostic Tests and Imaging: [facility] 11/04/2021 Diffuse cerebral edema consistent with the history. Assessment: Aniya Lundy is a 36 y.o. female with PMHx of depression and anxiety who presented with cardiacarrest. Neurology is being consulted for concern of seizure. Mental status reassuring, arousable despite being on propofol and fentanyl gtt, overall on track tomake good cognitive recovery. Given diffuse vasospasm systemically, question NURSES SUPERVISOR vasospasm as well,though exam while limited by [...] wean Jhony Regan DO Consult Neurology Pager [phone] 11/07/2021 Associated attestation - Tiffany Unger DO [...] as documented. Tiffany Unger D.O. Neurology Department [facility] [email or web address] * Initial Assessments - Sherry Arriola, SYBIL - 11/06/2021 3:52 PM EST Office of Care Management Initial Assessment Sherry Arriola RN reviewed record and discussed patient with Care Team. Source of Information: Team, bedside nurse, medical record, and Parent (IA done w/ Shannon Zamora (mother) [phone]) Introduced self/reviewed role; services accepted. Reason for Hospitalization: Cardiac arrest Covid Vaccination Status: Unvaccinated (11/04.) Last COVID test: Lab Results Component Value Date COVID19 Not Detected 11/03/2020 [id number] Not Detected 11/04/2021 Past medical History: Past [...] admission,other (see comments) (10/10 - ED at [facility] for chest pain (see note)) Current Decision-Making Capacity: Surrogate Advance Care Planning: Attempt Cardiopulmonary Resuscitation - Inpatient <no information> -Advanced Directive: (TBD - none on file) If AD's have not been completed Shannon Zamora (mother) would be surrogate decision maker per ID surrogate decision making law. (Only good for 180 days) Any patient receiving care at [facility] must abide by ID law. The hierarchy for surrogate decision making [...] (i) The agent with financial power of criminal defense attorney or a conservator appointed in accordance with RSA 464-A. (j) The guardian of the patient???s estate. Current Coping/Education/Information Needs: Pending hospital course. Current Functional Ability: Completely Dependent Functional Status Prior to Admission: Independent Home Environment: Others in the home: friend(s) (Dk Husain, boyfriend, intermittently stays at [facility]'s apartment.). Current Living Arrangements: home/apartment/condo. Accessibility Concerns:No steps to enter a first floor apartment, with the bathroom and bedroom on second floor.. Current DME: none Home Address confirmed as: [address] [facility] [address] (This is Shannon's mailing address that [facility] uses to get her mail). Physical address is: [address] [place] [address] Social & Family Supports: All names listed below confirmed with patient as current and correct Extended Emergency Contact Information Primary Emergency Contact: Shannon Zamora [facility] Mobile Relation: Mother Secondary Emergency Contact: [...] provided currently: support group(s) ([facility] [...] Insurance: N/A Prescription Coverage: Yes Preferred Pharmacy: [facility] [address] [place] [id number] [address] [facility] [address] - [place], [place] - [address] [place] [address] Status: Patient is a : unable to assess Mother reports patient is not a . Primary Care Provider: Kenia Lawrence APRN [phone] Patient/Caregiver Goals of Treatment: Pending hospital course and/or when medically stable discharge to home. Potential Needs for Transition of Care: other (see comments) (TBD - pending hospital course.) Agency Referrals: The patient/caregivers were provided with a list of [facility] agenies discussed with Shannon (patient's mother) which serve their preferred geographic location and they were educated about their right to choose where referrals are placed. Patient/Caregiver requests referral to (if needed,choice is). [facility] PHONE: [phone] FAX: [phone] Transportation: no concerns Transportation Anticipated: family or [...] Component Value Date COVID19 Not Detected 11/03/2020 [id number] Not Detected 11/04/2021 Past medical History: Past [...] admission,other (see comments) (10/10 - ED at [facility] for chest pain (see note)) Current Decision-Making Capacity: Surrogate (Shannon Zamora (mother) [phone]) Advance Care Planning: Attempt Cardiopulmonary Resuscitation - Inpatient <no information> -Advanced Directive: (TBD - none on file) If AD's have not been completed Shannon Zamora (mother) would be surrogate decision maker per ID surrogate decision making law. (Only good for 180 days) Any patient receiving care at [facility] must abide by ID law. The hierarchy for surrogate decision making [...] (i) The agent with financial power of criminal defense attorney or a conservator appointed in accordance with [...] Home Address listed as: [address] [place] [address] Social & Family Supports: All names listed below confirmed with patient as current and correct Extended Emergency Contact Information Primary Emergency Contact: Shannon Zamora [facility] Mobile Relation: Mother Secondary Emergency Contact: Ehsan [...] Insurance: N/A Prescription Coverage: Yes Preferred Pharmacy: [facility] [address] [place] [phone] [address] [facility] [address] - [place], [place] - [address] [place] [address] [place] Status: Patient is a : unable to assess Primary Care Provider: Kenia Lawrence, SENIOR MERCHANDISER [phone] Patient/Caregiver Goals of Treatment: Pending hospital course [...] ENDOSCOPY performed by Dudley Alva MD at [facility] ENDOSCOPY Medications: Scheduled Meds: ??? dexmedetomidine [...] Hypochromia Slight Tear Drop Cells 1-5 /HPF Annel Cells 1-5 /HPF Stippled RBCs Present >1/HPF [...] Morgan Malin MD 11/06/2021 Consult Neurology Pager [phone] ATTENDING NOTE: I reviewed the pertinent aspects [...] Clinical Neurophysiology * Consult Note - Jemal Qeuzada MD - 11/05/2021 9:19 AM EST [facility] Department of Surgery Inpatient Consult Note [...] of 6.5. She was taken to the calibration laboratory technician with the following findings: - Severe spasm of RFA & Near complete occlusion from apparent spasm around 6 Fr sheath. - Patient cardiac arrested x8 in the calibration laboratory technician. Now with R COMBINATION BUILDING INSPECTOR IABP, 7F sheath. ECHO (11/04/2021) - EF: [...] [X] Consult service to sign off Jemal [facility] Vascular Surgery Resident pager [phone] 11/05/2021 Associated attestation - Joseph Baez MD [...] cath w/ left coronary angiography, IABP placement, [place] jazmin catheter insertion, cooling catheter placement in [...] tablet 1,000 mg 1,000 mg Oral Q8H [facility] Richard Asher MD Or ??? acetaminophen (Tylenol) (32.02 mg/mL) oral liquid 1,000 mg 1,000 mg Oral Q8H Richard Staples MD Or ??? acetaminophen (Tylenol) suppository 975 mg 975 mg Rectal Q8H [facility] Richard Asher MD ??? fentaNYL (PF) (50 [...] Solution ??? fluticasone (Flonase Sensimist) 27.5 mcg/actuation [place], Suspension every 24 hours. ??? fluticasone propionate [...] ENDOSCOPY performed by Dudley Alva MD at [facility] ENDOSCOPY Allergies: Allergies Allergen Reactions ??? [...] PCR Not Detected Not Detected SARS-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 TECHNOLOGY Swab Hemogram Result Value Ref Range WBC [...] Negative mcL Appearance UA Clear Clear Spec [place] UA 1.020 1.005 - 1.030 Color UA [...] who have questions please contact the health personal care aide that requested your imaging first. Electronically signed by: JIM CARL MD, [facility] ([phone]), at 11/04/2021 10:18 AM XR Abdomen 1 view (Generic) (Exam End: 11/04/2021 10:09 AM) Impression Orogastric tube placement, as above. Thank you for letting us participate in the care of this patient. If you are a health care provider and have any questions regarding this report, please contact the number below. For patients who have questions please contact the health personal care aide that requested your imaging first. Electronically signed by: JIM CARL MD, [facility] ([phone]), at 11/04/2021 10:[address] Head wo [...] who have questions please contact the health personal care aide that requested your imaging first. Electronically signed by: Alejo Garcia MD, [facility] ([phone]), at 11/04/2021 9:[address] Angiogram Chest [...] who have questions please contact the health personal care aide that requested your imaging first. Electronically signed by: JIM CARL MD, [facility] ([phone]), at 11/04/2021 9:52 AM XR Chest One [...] who have questions please contact the health personal care aide that requested your imaging first. Electronically signed by: Jennifer Bassett MD, [facility] ([phone]), at 11/04/2021 8:53 PM Assessment: Aniya Lundy [...] Malin MD IM, PGY-1 Consult Neurology Service #[id number] 11/05/2021 ATTENDING NOTE: I reviewed the pertinent [...] Ruelas MD - 11/04/2021 9:33 PM EST [facility] Department of Surgery Inpatient Consult Note [...] of 6.5. She was taken to the calibration laboratory technician with the following findings: - Severe spasm of RFA & Near complete occlusion from apparent spasm around 6 Fr sheath. - Patient cardiac arrested x8 in the calibration laboratory technician. Now with R COMBINATION BUILDING INSPECTOR IABP, 7F sheath. ECHO (11/04/2021) - EF: [...] ENDOSCOPY performed by Dudley Alva MD at [facility] ENDOSCOPY HOME MEDICATIONS: No current facility-administered [...] Solution ??? fluticasone (Flonase Sensimist) 27.5 mcg/actuation [place], Suspension every 24 hours. ??? fluticasone propionate [...] any questions regarding this consult, please page [phone] if you have any further questions. [X] Consult service to continue to follow [] Consult service to sign off Rachel Ruelas Vascular Surgery Fellow pager [phone] 11/04/2021 Associated attestation - Joseph Baez MD [...] Procedure Note: Patient Name: Aniya Lundy : [id number] MR#: [id number] Case Date: 11/04/2021 Cinder Crew Worker: Surgeon(s) and Role: * Jama Melo MD - Primary * Warren Ball MD - Fellow Preoperative diagnosis: Cardiac arrest Postoperative diagnosis: same, uncertain etiology. Diffuse coronary spasm and multiple episodes of VT/VF during procedure. Procedure(s) performed: Left coronary angiography, IABP placement, [place] jazmin catheter insertion, cooling catheter placement in IVC. Access: 7 Fr RFA carrylng IABP, 9 Fr RIJ carrying [place], 9.5 Fr RFV cooling catheter A time-out [...] to perform angiography of the RCA. 3. [place] Jazmin catheter placed via the RIJ with [...] sufficiently to allow transport back to the [facility] in guardedcondition. Full report to follow. JAMA [...] to bedside ROSC had been achieved. See Heel Top Lift Splitter note for information prior to LS RN arrival. Plan: Remain on Floor- CV 22 Please page Life Safety at [phone] with any additional questions or concerns. Teena Decker, RN 3:56 PM November 04, 2021 * ED Procedure Note - Dudley Owens MD - 11/04/2021 10:42 AM ESTAssociated Order(s): Arterial Line; Intubation Arterial Line Date/Time: 11/04/2021 10:42 AM Performed by: Dudley Owens MD Authorized by: Horace Nielsen MD [place] Protocol: Emergent situation Patient identity confirmed: Arm band Time out: Immediately prior to the procedure a time out was called A time out verifies correct patient, procedure, equipment, ground support equipment assembler and site/side marked as required: Preparation: Preparation: [...] Owens MD Authorized by: Yohannes Dhillon MD [place] Protocol: Emergent situation Patient identity confirmed: Arm band Time out: Immediately prior to the procedure a time out was called A time out verifies correct patient, procedure, equipment, ground support equipment assembler and site/side marked as required: Indications: Indications: [...] original note were not included. [facility] [place] [id number] INPATIENT CARDIOLOGY ADMISSION H&P Date of Consultation: 11/04/2021 have seen and examined this patient and discussed with the internet marketer, resident, fellow. I agree with the plan [...] ~ 480 or less. She presented to [facility] in Sep 2021 with chest pain but r/o for [place]. She had COVID in 2020 (vaccination status unclear). See note below with history provided by Ms. Lundy's mother. ?? Initial venous pH 7.09 lactate 65. CK 135, d-dimer 5000 (r/o for PE), Serum creatinine 1.55 (baseline ~ 1.0), hemoglobin 12.4, platelets 298, WBC 25, AST 72 ALT 79. Troponin 0.02. ?? Shortly after 3 pm today, Dr. Marek Alves, equipment operat0r was bedside when she again went into Vfib.While the etiology of her arrest is still not clear (she is at relatively low risk for obstructive coronary artery disease), I feel that defining her coronary anatomy is reasonable. We will also havea formal echocardiogram. ?? Valorie Obrien MD, Naye, [facility] Cardiology Attending ?? Admit Date: 11/04/2021 Hospital [...] months. Aniya had a recent visit to [facility] ED in mid September with sharp chest [...] ENDOSCOPY performed by Dudley Alva MD at [facility] ENDOSCOPY Allergies Allergen Reactions ??? Augmentin [...] Date ED from 11/04/2021 in Emergency Department [facility] ED from 10/10/2021 in Emergency Services at [facility] Weight 70 kg (154 lb 5.2 oz) [...] urine output and electrolytes, no need for DOOR PERSON at this time GI - Place OGT - Stress ulcer ppx ID - Will obtain blood cultures, no concern for active infection at this time based on history FULL CODE Nex of kin: Mother Shannon [phone] (verbal consent for central line obtained) Uday (Cielo) MD [facility] Fellow Pager [phone] * Consult Note - Jhony Regan DO [...] Solution ??? fluticasone (Flonase Sensimist) 27.5 mcg/actuation [place], Suspension every 24 hours. ??? fluticasone propionate [...] Solution ??? fluticasone (Flonase Sensimist) 27.5 mcg/actuation [place], Suspension every 24 hours. ??? fluticasone propionate [...] ENDOSCOPY performed by Dudley Alva MD at [facility] ENDOSCOPY Allergies: Allergies Allergen Reactions ??? [...] PCR Not Detected Not Detected SARS-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 TECHNOLOGY Swab Hemogram Result Value Ref Range WBC [...] Negative mcL Appearance UA Clear Clear Spec [place] UA 1.020 1.005 - 1.030 Color UA [...] AM EST Routine Obstetrics [place] [address] Emili Cabrera MD [facility] [place] [address] 09/26/2024 6:00 PM EST Appointment [facility] [place] [phone] 10/16/2024 Hospital [facility] [place] [phone] Dudley Aguilar MD [facility] DR OBSTETRICS [place] [address] 11/08/2024 10:00 AM EST Hospital Encounter [place] [address] Arrived Pending Results Name Type [...] SERUM Routine 11/08/2021 7 :[address] 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 Routine 11/08/19 1:47 PM EST [...] Routine 11/04/2021 12:12 PM EST Cardiac arrest [id number] ONLY Routine 11/04/2021 10:51 AM EST INSERT [...] 11/04/2021 7:37 AM EST RAPID COVID-19 PCR ([facility]) STAT 11/04/2021 7:35 AM EST SCAN, [...] (Bezet) 445 ms MUSE SYSTEM Calculated P [place] 25 degrees MUSE SYSTEM Calculated R [place] 23 degrees MUSE SYSTEM Calculated T [place] 21 degrees MUSE SYSTEM INTERPRETATION Normal sinus rhythm Incomplete right bundle branch block Minimal voltage criteria for LVH, may be normal variant ( Clay product ) Borderline ECG When compared with ECG of 10-NOV-2021 07:54, T wave inversion less evident in Anterior leads Confirmed by MD REGINALD, FRANCES ([id number]) on 11/14/2021 1:57:43 PM MUSE SYSTEM 11/14/2021 1:23 PM EST 11/14/2021 1:57 PM EST Neeraj Pompa MD ECG ORDERABLES MUSE SYSTEM * (ABNORMAL) Differential, Automated (11/14/2021 4:28 AM EST) Neutrophil % 55.1 % [facility] Neutrophil Absolute 7.45(H) 1.70 - 6.10 x10(3)/[facility] Lymph % 30.8 % [facility] Lymphocytes Abs 4.2(H) 0.9 - 3.2 x10(3)/[facility] Monocyte % 6.6 % [facility] Monocyte Abs 0.9 0.3 - 0.9 x10(3)/[facility] Eos % 4.9 % [facility] Eosinophils Abs 0.7(H) 0.0 - 0.4 x10(3)/[facility] Basophil % 0.8 % [facility] Baso Absolute 0.1 0.0 - 0.1 x10(3)/[facility] Immature Gran % 1.80 % [facility] Comment: Immature granulocytes(IG's)percentage and absolute count will include metamyelocytes, myelocytes, and promyelocytes. Blood smears from CBCs yielding IG's will be scanned manually for concordance. If this scan disagrees with the automated IG or if promyelocytes are noted, a manual differential will be performed. Immature Gran Absolute 0.24(H) 0.00 - 0.04 x10(3)/[facility] Blood 11/14/2021 4:28 AM EST 11/14/2021 5:18 AM EST Narrative Resulting Agency Comment Spec In Lab Uday Alves MD HEMATOLOGY ORDERABLE S Performing Organization Address City/[facility]/ZIP Co de Phone Number [facility] [place] [address] * (ABNORMAL) Hemogram (11/14/2021 4:28 AM EST) White Blood Cell 13.5(H) 4.0 - 9.5 x10(3)/mc L [facility] Red Blood Cell 3.56(L) 4.00 - 5.21 x10(6)/mc L [facility] Hemoglobin 9.4(L) 11.7 - 15.5 g/dL [facility] Hematocrit 29.5(L) 35.7 - 45.8 % [facility] Mean Cell Volume 82.9 82.6 - 94.4 fL [facility] Mean Cell Hemoglobin 26.4(L) 27.1 - 32.0 pg [facility] Mean Cell Hemoglobin Concentration 31.9 31.7 - 35.0 g/dL [facility] Platelet 446(H) 145 - 357 x10(3)/mc L [facility] RDW Standard Deviation 50.4(H) 37.0 - 46.0 fL [facility] RDW coefficient of variation 17.3(H) 11.5 - 14.1 % [facility] Mean Platelet Volume 10.7 7.6 - 12.9 fL [facility] NRBC% auto 0.0 % [facility] NRBC Absolute 0.000 0.000 - 0.000 x10(3)/mc L [facility] Blood 11/14/2021 4:28 AM EST 11/14/2021 5:18 AM EST Narrative Resulting Agency Comment Spec In Lab Uday Alves MD HEMATOLOGY ORDERABLE S [facility] [place] [address] * Magnesium (11/14/2021 4:28 AM EST) Magnesium 0.80 0.69 - 1.07 mmol/L [facility] Blood 11/14/2021 4:28 AM EST 11/14/2021 5:18 AM EST Narrative Resulting Agency Comment Spec In Lab Neeraj Pompa MD CHEMISTRY ORDERABLES [facility] [place] [address] * (ABNORMAL) Basic Metabolic Panel (non-fasting) (11/14/2021 4:28 AM EST) Glucose 84 65 - 199 mg/dL [facility] Comment:Diabetes: >=200 mg/d L plus symptoms Blood Urea Nitrogen 27(H) 8 - 18 mg/dL [facility] Creatinine 0.92 0.70 - 1.20 mg/dL [facility] Sodium 137 135 - 145 mmol/L [facility] Potassium 4.3 3.5 - 5.0 mmol/L [facility] Comment: Please note: ??Patients with WBC >100,000 may have falsely elevated Potassium levels. ??For accurate Potassium quantification in these patients send serum separator tube (gold top) for subsequent determinations. ??Contact the Clinical Chemistry Laboratory if there are any questions. Chloride 106 98 - 107 mmol/L [facility] Carbon Dioxide 21(L) 22 - 31 mmol/L [facility] Anion Gap 10 5 - 15 mmol/L [facility] Calcium 8.5 8.5 - 10.5 mg/dL [facility] Est Glomerular Filtration Rate 80 >=60 mL/min/1. 73 m?? [facility] Comment: This patient? s estimated [...] In Lab Yohannes Dhillon MD CHEMISTRY ORDERABLES [facility] [place] [address] * XR Chest PA & Lateral (Generic) [...] who have questions please contact the health personal care aide that requested your imaging first. ? Narrative [...] patients who have questions please contactthe health personal care aide that requested your imaging first. Electronically signed by: Monie Becerril MD, [facility]([phone]), at 11/13/2021 8:08 AM Neeraj Pompa MD IMG DX ORDERABLES * (ABNORMAL) Differential, Automated (11/13/2021 4:30 AM EST) Neutrophil % 85.2 % [facility] Neutrophil Absolute 14.55(H) 1.70 - 6.10 x10(3)/mc L [facility] Lymph % 10.1 % [facility] Lymphocytes Abs 1.7 0.9 - 3.2 x10(3)/mc L [facility] Monocyte % 3.2 % [facility] Monocyte Abs 0.6 0.3 - 0.9 x10(3)/mc L [facility] Eos % 0.1 % [facility] Eosinophils Abs 0.0 0.0 - 0.4 x10(3)/mc L [facility] Basophil % 0.2 % [facility] Baso Absolute 0.0 0.0 - 0.1 x10(3)/[facility] Immature Gran % 1.20 % [facility] Comment: Immature granulocytes(IG's)percentage and absolute count will include metamyelocytes, myelocytes, and promyelocytes. Blood smears from CBCs yielding IG's will be scanned manually for concordance. If this scan disagrees with the automated IG or if promyelocytes are noted, a manual differential will be performed. Immature Gran Absolute 0.20(H) 0.00 - 0.04 x10(3)/[facility] Blood 11/13/2021 4:30 AM EST 11/13/2021 4:36 AM EST Narrative Resulting Agency Comment Spec In Lab Uday Alves MD HEMATOLOGY ORDERABLE S Performing Organization Address City/State/[facility] Co de Phone Number [facility] [place] [address] * (ABNORMAL) Hemogram (11/13/2021 4:30 AM EST) White Blood Cell 17.1(H) 4.0 - 9.5 x10(3)/[facility] Red Blood Cell 3.59(L) 4.00 - 5.21 x10(6)/[facility] Hemoglobin 9.5(L) 11.7 - 15.5 g/dL [facility] Hematocrit 29.3(L) 35.7 - 45.8 % [facility] Mean Cell Volume 81.6(L) 82.6 - 94.4 fL [facility] Mean Cell Hemoglobin 26.5(L) 27.1 - 32.0 pg [facility] Mean Cell Hemoglobin Concentration 32.4 31.7 - 35.0 g/dL [facility] Platelet 399(H) 145 - 357 x10(3)/[facility] RDW Standard Deviation 47.8(H) 37.0 - 46.0 fL [facility] RDW coefficient of variation 16.4(H) 11.5 - 14.1 % [facility] Mean Platelet Volume 10.3 7.6 - 12.9 fL [facility] NRBC% auto 0.0 % [facility] NRBC Absolute 0.000 0.000 - 0.000 x10(3)/mc L [facility] Blood 11/13/2021 4:30 AM EST 11/13/2021 4:36 AM EST Narrative Resulting Agency Comment Spec In Lab Uday Alves MD HEMATOLOGY ORDERABLE S Performing Organization Address City/[facility]/ZIP Co de Phone Number [facility] [place] [address] * Magnesium (11/13/2021 4:30 AM EST) Magnesium 0.84 0.69 - 1.07 mmol/L [facility] Blood 11/13/2021 4:30 AM EST 11/13/2021 4:36 AM EST Narrative Resulting Agency Comment Spec In Lab Neeraj Pompa MD CHEMISTRY ORDERABLES Performing Organization Address [facility]/ZIP Co de Phone Number [facility] [place] [address] * (ABNORMAL) Basic Metabolic Panel (non-fasting) (11/13/2021 4:30 AM EST) Glucose 150 65 - 199 mg/dL [facility] Comment:Diabetes: >=200 mg/d L plus symptoms Blood Urea Nitrogen 21(H) 8 - 18 mg/dL [facility] Creatinine 0.89 0.70 - 1.20 mg/dL [facility] Sodium 138 135 - 145 mmol/L [facility] Potassium 4.3 3.5 - 5.0 mmol/L [facility] Comment: Please note: ??Patients with WBC >100,000 may have falsely elevated Potassium levels. ??For accurate Potassium quantification in these patients send serum separator tube (gold top) for subsequent determinations. ??Contact the Clinical Chemistry Laboratory if there are any questions. Chloride 108(H) 98 - 107 mmol/L [facility] Carbon Dioxide 20(L) 22 - 31 mmol/L [facility] Anion Gap 10 5 - 15 mmol/L [facility] Calcium 8.7 8.5 - 10.5 mg/dL [facility] Est Glomerular Filtration Rate 83 >=60 mL/min/1. 73 m?? [facility] Comment: This patient? s estimated [...] Dhillon MD CHEMISTRY ORDERABLES Performing Organization Address City/State/[facility] Co de Phone Number [facility] [place] [address] * ELECTROPHYSIOLOGY PROCEDURE (11/12/2021 3:30 PM EST) [...] SQ electrode Model 3501 Bipolar Serial Number [id number] Implanted 11/12/21 Bipolar Subcutaneous ICD Lead Pulse generator: [employer] S-ICD Pulse Generator Model A219 Serial Number [id number] Implanted 11/12/21 Location: [id number], 5th to 6th intercostal space Antibiotic: 2 grams cefazolin 1350 Incision time: 1359 Estimated blood loss : 20 cc No drains in situ Fluoroscopy time: 0.1 minute, DAP 0.3 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 ? Electronically signed by: Cyn Bhakta MD, [facility] ([phone]), at 11/12/2021 8:12 AM Narrative 11/12/2021 8:12 [...] patients who have questions please contactthe health personal care aide that requested your imaging first. Electronically signed by: Cyn Bhakta MD, [facility]([phone]), at 11/12/2021 8:12 AM Devin Ricci MD IMG DX ORDERABLES * (ABNORMAL) Differential, Automated (11/12/2021 4:48 AM EST) Neutrophil % 54.9 % [facility] Neutrophil Absolute 5.80 1.70 - 6.10 x10(3)/[facility] Lymph % 22.2 % [facility] Lymphocytes Abs 2.3 0.9 - 3.2 x10(3)/[facility] Monocyte % 11.1 % [facility] Monocyte Abs 1.2(H) 0.3 - 0.9 x10(3)/[facility] Eos % 9.8 % [facility] Eosinophils Abs 1.0(H) 0.0 - 0.4 x10(3)/[facility] Basophil % 0.9 % [facility] Baso Absolute 0.1 0.0 - 0.1 x10(3)/[facility] Immature Gran % 1.10 % [facility] Comment: Immature granulocytes(IG's)percentage and absolute count will include metamyelocytes, myelocytes, and promyelocytes. Blood smears from CBCs yielding IG's will be scanned manually for concordance. If this scan disagrees with the automated IG or if promyelocytes are noted, a manual differential will be performed. Immature Gran Absolute 0.12(H) 0.00 - 0.04 x10(3)/[facility] Blood 11/12/2021 4:48 AM EST 11/12/2021 5:22 AM EST Narrative Resulting Agency Comment Spec In Lab Uday Alves MD HEMATOLOGY ORDERABLE S [facility] [place] [address] * (ABNORMAL) Hemogram (11/12/2021 4:48 AM EST) White Blood Cell 10.6(H) 4.0 - 9.5 x10(3)/[facility] Red Blood Cell 3.70(L) 4.00 - 5.21 x10(6)/mc L [facility] Hemoglobin 9.7(L) 11.7 - 15.5 g/dL [facility] Hematocrit 30.2(L) 35.7 - 45.8 % [facility] Mean Cell Volume 81.6(L) 82.6 - 94.4 fL [facility] Mean Cell Hemoglobin 26.2(L) 27.1 - 32.0 pg [facility] Mean Cell Hemoglobin Concentration 32.1 31.7 - 35.0 g/dL [facility] Platelet 343 145 - 357 x10(3)/mc L [facility] RDW Standard Deviation 47.5(H) 37.0 - 46.0 [facility] RDW coefficient of variation 16.2(H) 11.5 - 14.1 % [facility] Mean Platelet Volume 10.6 7.6 - 12.9 [facility] NRBC% auto 0.0 % [facility] NRBC Absolute 0.000 0.000 - 0.000 x10(3)/mc L [facility] Blood 11/12/2021 4:48 AM EST 11/12/2021 5:22 AM EST Narrative Resulting Agency Comment Spec In Lab Uday Alves MD HEMATOLOGY ORDERABLE S [facility] [place] [address] * (ABNORMAL) Basic Metabolic Panel (non-fasting) (11/12/2021 4:48 AM EST) Glucose 89 65 - 199 mg/dL [facility] Comment:Diabetes: >=200 mg/d L plus symptoms Blood Urea Nitrogen 17 8 - 18 mg/dL [facility] Creatinine 0.87 0.70 - 1.20 mg/dL [facility] Sodium 140 135 - 145 mmol/L [facility] Potassium 3.5 3.5 - 5.0 mmol/L [facility] Comment: Please note: ??Patients with WBC >100,000 may have falsely elevated Potassium levels. ??For accurate Potassium quantification in these patients send serum separator tube (gold top) for subsequent determinations. ??Contact the Clinical Chemistry Laboratory if there are any questions. Chloride 105 98 - 107 mmol/L [facility] Carbon Dioxide 23 22 - 31 mmol/L [facility] Anion Gap 12 5 - 15 mmol/L [facility] Calcium 8.4(L) 8.5 - 10.5 mg/dL [facility] Est Glomerular Filtration Rate 85 >=60 mL/min/1. 73 m?? [facility] Comment: This patient? s estimated [...] In Lab Yohannes Dhillon MD CHEMISTRY ORDERABLES [facility] [place] [address] * Magnesium (11/11/2021 6:41 PM EST) Magnesium 0.83 0.69 - 1.07 mmol/L [facility] Blood 11/11/2021 6:41 PM EST 11/11/2021 6:53 PM EST Narrative Resulting Agency Comment Spec In Lab Valorie Obrien MD CHEMISTRY ORDERABLES [facility] [place] [address] * Magnesium (11/11/2021 4:42 AM EST) [facility] Magnesium 0.93 0.69 - 1.07 mmol/L [facility] Blood Venous Draw / Unknown 11/11/2021 4:42 AM EST 11/11/2021 5:02 AM EST Narrative Resulting Agency Comment Spec In Lab Prashant Johnson MD CHEMISTRY ORDERABLES Performing Organization Address City/[facility]/ZIP Co de Phone Number [facility] [place] [address] * (ABNORMAL) Differential, Automated (11/11/2021 4:42 AM EST) [facility] Neutrophil % 47.9 % [facility] Neutrophil Absolute 5.49 1.70 - 6.10 x10(3)/mc L [facility] Lymph % 27.9 % [facility] Lymphocytes Abs 3.2 0.9 - 3.2 x10(3)/mc L [facility] Monocyte % 10.9 % [facility] Monocyte Abs 1.2(H) 0.3 - 0.9 x10(3)/mc L [facility] Eos % 11.6 % [facility] Eosinophils Abs 1.3(H) 0.0 - 0.4 x10(3)/mc L [facility] Basophil % 0.8 % [facility] Baso Absolute 0.1 0.0 - 0.1 x10(3)/mc L [facility] Immature Gran % 0.90 % [facility] Comment: Immature granulocytes(IG's)percentage and absolute count will include metamyelocytes, myelocytes, and promyelocytes. Blood smears from CBCs yielding IG's will be scanned manually for concordance. If this scan disagrees with the automated IG or if promyelocytes are noted, a manual differential will be performed. Immature Gran Absolute 0.10(H) 0.00 - 0.04 x10(3)/mc L [facility] Blood 11/11/2021 4:42 AM EST 11/11/2021 5:01 AM EST Narrative Resulting Agency Comment Spec In Lab Uday Alves MD HEMATOLOGY ORDERABLE S [facility] [place] [address] * (ABNORMAL) Hemogram (11/11/2021 4:42 AM EST) White Blood Cell 11.5(H) 4.0 - 9.5 x10(3)/mc L [facility] Red Blood Cell 3.96(L) 4.00 - 5.21 x10(6)/[facility] Hemoglobin 10.5(L) 11.7 - 15.5 g/dL [facility] Hematocrit 32.0(L) 35.7 - 45.8 % [facility] Mean Cell Volume 80.8(L) 82.6 - 94.4 fL [facility] Mean Cell Hemoglobin 26.5(L) 27.1 - 32.0 pg [facility] Mean Cell Hemoglobin Concentration 32.8 31.7 - 35.0 g/dL [facility] Platelet 331 145 - 357 x10(3)/mc L [facility] RDW Standard Deviation 47.1(H) 37.0 - 46.0 fL [facility] RDW coefficient of variation 16.3(H) 11.5 - 14.1 % [facility] Mean Platelet Volume 10.3 7.6 - 12.9 fL [facility] NRBC% auto 0.0 % [facility] NRBC Absolute 0.000 0.000 - 0.000 x10(3)/ L [facility] Blood 11/11/2021 4:42 AM EST 11/11/2021 5:01 AM EST Narrative Resulting Agency Comment Spec In Lab Uday Alves MD HEMATOLOGY ORDERABLE S [facility] [place] [address] * (ABNORMAL) Basic Metabolic Panel (non-fasting) (11/11/2021 4:42 AM EST) Glucose 99 65 - 199 mg/dL [facility] Comment:Diabetes: >=200 mg/d L plus symptoms Blood Urea Nitrogen 23(H) 8 - 18 mg/dL [facility] Creatinine 0.92 0.70 - 1.20 mg/dL [facility] Sodium 141 135 - 145 mmol/L [facility] Potassium 3.4(L) 3.5 - 5.0 mmol/L [facility] Comment: Please note: ??Patients with WBC >100,000 may have falsely elevated Potassium levels. ??For accurate Potassium quantification in these patients send serum separator tube (gold top) for subsequent determinations. ??Contact the Clinical Chemistry Laboratory if there are any questions. Chloride 104 98 - 107 mmol/L [facility] Carbon Dioxide 21(L) 22 - 31 mmol/L [facility] Anion Gap 16(H) 5 - 15 mmol/L [facility] Calcium 8.5 8.5 - 10.5 mg/dL [facility] Est Glomerular Filtration Rate 80 >=60 mL/min/1. 73 m?? [facility] Comment: This patient? s estimated [...] Dhillon MD CHEMISTRY ORDERABLES Performing Organization Address [facility] Co de Phone Number [facility] [place] [address] * Magnesium (11/10/2021 6:07 PM EST) Pathologist [facility] Magnesium 0.83 0.69 - 1.07 mmol/L [facility] Blood 11/10/2021 6:07 PM EST 11/10/2021 6:17 PM EST Narrative Resulting Agency Comment Spec In Lab Valorie Obrien MD CHEMISTRY ORDERABLES Performing Organization Address [facility] Co de Phone Number [facility] [place] [address] * Magnesium (11/10/2021 10:06 AM EST) Pathologist [facility] Magnesium 0.82 0.69 - 1.07 mmol/L [facility] Blood 11/10/2021 10:0 6 AM EST 11/10/2021 10:39 AM EST Narrative Resulting Agency Comment Spec In Lab Valorie Obrien MD CHEMISTRY ORDERABLES Performing Organization Address [facility] Co de Phone Number [facility] [place] [address] * EKG 12 Lead (11/10/2021 7:54 AM EST) Ventricular rate 80 BPM MUSE SYSTEM Atrial Rate 80 BPM MUSE SYSTEM P-R Interval 130 ms MUSE SYSTEM QRS Duration 86 ms MUSE SYSTEM Q-T Interval 418 ms MUSE SYSTEM QTC Calculated (Bezet) 482 ms MUSE SYSTEM Calculated P [place] 48 degrees MUSE SYSTEM Calculated R [place] 31 degrees MUSE SYSTEM Calculated T [place] 93 degrees MUSE SYSTEM INTERPRETATION Normal sinus [...] Obrien MD ECG ORDERABLES Performing Organization Address City/[facility]/ZIP Co de Phone Number MUSE SYSTEM * Magnesium (11/09/2021 6:24 PM EST) Pathologist [facility] Magnesium 0.98 0.69 - 1.07 mmol/L [facility] Blood 11/09/2021 6:24 PM EST 11/09/2021 6:29 PM EST Narrative Resulting Agency Comment Spec In Lab Valorie Obrien MD CHEMISTRY ORDERABLES Performing Organization Address [facility] Co de Phone Number [facility] [place] [address] * Scan, Peripheral Blood (11/09/2021 12:40 AM EST) Pathologist [facility] Plat estimate Normal [facility] RBC Morphology Abnormal [facility] Hypochromia Slight [facility] Ovalocytes 1-5 /HPF [facility] Vacuolated Neut Present [facility] Blood 11/09/2021 12:4 0 AM EST 11/09/2021 12:45 AM EST Narrative Resulting Agency Comment Spec In Lab Uday Alves MD HEMATOLOGY ORDERABLE S Performing Organization Address [facility]/ZIP Co de Phone Number [facility] [place] [address] * (ABNORMAL) Differential, Automated (11/09/2021 12:40 AM EST) Pathologist [facility] Neutrophil % 79.7 % [facility] Neutrophil Absolute 13.19(H) 1.70 - 6.10 x10(3)/ L [facility] Lymph % 8.6 % [facility] Lymphocytes Abs 1.4 0.9 - 3.2 x10(3)/ L [facility] Monocyte % 6.4 % [facility] Monocyte Abs 1.1(H) 0.3 - 0.9 x10(3)/ L [facility] Eos % 3.9 % [facility] Eosinophils Abs 0.6(H) 0.0 - 0.4 x10(3)/[facility] Basophil % 0.4 % [facility] Baso Absolute 0.1 0.0 - 0.1 x10(3)/[facility] Immature Gran % 1.00 % [facility] Comment: Immature granulocytes(IG's)percentage and absolute count will include metamyelocytes, myelocytes, and promyelocytes. Blood smears from CBCs yielding IG's will be scanned manually for concordance. If this scan disagrees with the automated IG or if promyelocytes are noted, a manual differential will be performed. Immature Gran Absolute 0.16(H) 0.00 - 0.04 x10(3)/ L [facility] Blood 11/09/2021 12:4 0 AM EST 11/09/2021 12:45 AM EST Narrative Resulting Agency Comment Spec In Lab Uday Alves MD HEMATOLOGY ORDERABLE S [facility] [place] [address] * (ABNORMAL) Hemogram (11/09/2021 12:40 AM EST) Pathologist [facility] White Blood Cell 16.5(H) 4.0 - 9.5 x10(3)/ L [facility] Red Blood Cell 3.97(L) 4.00 - 5.21 x10(6)/mc L [facility] Hemoglobin 10.5(L) 11.7 - 15.5 g/dL [facility] Hematocrit 32.0(L) 35.7 - 45.8 % [facility] Mean Cell Volume 80.6(L) 82.6 - 94.4 fL [facility] Mean Cell Hemoglobin 26.4(L) 27.1 - 32.0 pg [facility] Mean Cell Hemoglobin Concentration 32.8 31.7 - 35.0 g/dL [facility] Platelet 237 145 - 357 x10(3)/mc L [facility] RDW Standard Deviation 48.1(H) 37.0 - 46.0 [facility] RDW coefficient of variation 16.6(H) 11.5 - 14.1 % [facility] Mean Platelet Volume 10.5 7.6 - 12.9 [facility] NRBC% auto 0.0 % [facility] NRBC Absolute 0.000 0.000 - 0.000 x10(3)/mc L [facility] Blood 11/09/2021 12:4 0 AM EST 11/09/2021 12:45 AM EST Narrative Resulting Agency Comment Spec In Lab Uday Alves MD HEMATOLOGY ORDERABLE S Performing Organization Address City/State/[facility] Co de Phone Number [facility] [place] [address] * (ABNORMAL) Basic Metabolic Panel (non-fasting) (11/09/2021 12:40 AM EST) Glucose 121 65 - 199 mg/dL [facility] Comment:Diabetes: >=200 mg/d L plus symptoms Blood Urea Nitrogen 22(H) 8 - 18 mg/dL [facility] Comment:result rechecked-ng Creatinine 0.84 0.70 - 1.20 mg/dL [facility] Sodium 138 135 - 145 mmol/L [facility] Potassium 3.5 3.5 - 5.0 mmol/L [facility] Comment: Please note: ??Patients with WBC >100,000 may have falsely elevated Potassium levels. ??For accurate Potassium quantification in these patients send serum separator tube (gold top) for subsequent determinations. ??Contact the Clinical Chemistry Laboratory if there are any questions. Chloride 103 98 - 107 mmol/L [facility] Carbon Dioxide 24 22 - 31 mmol/L [facility] Anion Gap 11 5 - 15 mmol/L [facility] Calcium 9.0 8.5 - 10.5 mg/dL [facility] Est Glomerular Filtration Rate 89 >=60 mL/min/1. 73 m?? [facility] Comment: This patient? s estimated [...] In Lab Yohannes Dhillon MD CHEMISTRY ORDERABLES [facility] [place] [address] * Magnesium (11/09/2021 12:40 AM EST) Magnesium 0.97 0.69 - 1.07 mmol/L [facility] Blood 11/09/2021 12:4 0 AM EST 11/09/2021 12:45 AM EST Narrative Resulting Agency Comment Spec In Lab Valorie Obrien MD CHEMISTRY ORDERABLES Performing Organization Address City/[facility] Co de Phone Number [facility] [place] [address] * Magnesium (11/08/2021 7:05 PM EST) Magnesium 0.92 0.69 - 1.07 mmol/L [facility] Blood 11/08/2021 7:05 PM EST 11/08/2021 7:15 PM EST Narrative Resulting Agency Comment Spec In Lab Valorie Obrien MD CHEMISTRY ORDERABLES Performing Organization Address [facility] de Phone Number [facility] [place] [address] * 24 Hour EEG, Portable (11/08/2021 1:47 PM EST) Narrative Darien Zavala MD - 11/08/2021 1:47 PM EST Leonora Mandujano MD ? 11/08/2021 ??2:13 PM [facility] Department of Neurology Inpatient Continuous EEG [...] MAR Order Reminder ?? NOT APPLICABLE Once Valoire Obrien MD ? tube feeding diet ??1,300 [...] EKG. Video was recorded during the session. BEAUTY DIRECTOR'S REPORT: Performed by: Leon Clark At the onset of the recording the patient was Intubated. Movement and other artifact was not significant. Comments:None [facility] Department of Neurology Critical Care Continuous EEG Report Patient: Aniya Lundy, [id number] Date: 11/08/21 Start Time: 05:00 11/07/2021 End [...] 10:10 AM EST) MRSA PCR Negative Negative [facility] MRSA (Interp) Negative for methicillin-resis tant Staphylococcus aureus (MRSA) This test was performed using the GeneXpert?? Dx System and the Xpert MRSA Assay. The MRSA target DNA was not detected. The sample processing control and probe check were valid. The performance of this test was determined by the [facility] Molecular Pathology Laboratory. It has been cleared by the U.S. Food and Drug Administration for clinical use. [facility] Comment: [VERIFIED DATE]11.09.21 Verified By:Dudley Cook (Electronic Signature) Nasopharyngeal Swab 11/08/19 10:10 AM EST 11/08/2021 1:07 PM EST Narrative Resulting Agency Comment Spec In Lab Valorie Obrien MD MOLECULAR ORDERABLES [facility] [place] [address] * Magnesium (11/08/2021 4:30 AM EST) [facility] Magnesium 0.85 0.69 - 1.07 mmol/L [facility] Blood Venous Draw / Unknown 11/08/2021 4:30 AM EST 11/08/2021 4:48 AM EST Narrative Resulting Agency Comment Spec In Lab Prashant Johnson MD CHEMISTRY ORDERABLES Performing Organization Address City/[facility]/ZIP Co de Phone Number [facility] [place] [address] * Scan, Peripheral Blood (11/08/2021 4:30 AM EST) [facility] Plat estimate Normal [facility] RBC Morphology Abnormal [facility] Hypochromia Slight [facility] Ovalocytes 1-5 /HPF [facility] Blood 11/08/2021 4:30 AM EST 11/08/2021 4:47 AM EST Narrative Resulting Agency Comment Spec In Lab Uday Alves MD HEMATOLOGY ORDERABLE S Performing Organization Address City/[facility]/ZIP Co de Phone Number [facility] [place] [address] * (ABNORMAL) Differential, Automated (11/08/2021 4:30 AM EST) [facility] Neutrophil % 86.8 % [facility] Neutrophil Absolute 15.88(H) 1.70 - 6.10 x10(3)/mc L [facility] Lymph % 5.4 % [facility] Lymphocytes Abs 1.0 0.9 - 3.2 x10(3)/mc L [facility] Monocyte % 5.9 % [facility] Monocyte Abs 1.1(H) 0.3 - 0.9 x10(3)/mc L [facility] Eos % 0.7 % [facility] Eosinophils Abs 0.1 0.0 - 0.4 x10(3)/mc L [facility] Basophil % 0.3 % [facility] Baso Absolute 0.0 0.0 - 0.1 x10(3)/ L [facility] Immature Gran % 0.90 % [facility] Comment: Immature granulocytes(IG's)percentage and absolute count will include metamyelocytes, myelocytes, and promyelocytes. Blood smears from CBCs yielding IG's will be scanned manually for concordance. If this scan disagrees with the automated IG or if promyelocytes are noted, a manual differential will be performed. Immature Gran Absolute 0.16(H) 0.00 - 0.04 x10(3)/[facility] Blood 11/08/2021 4:30 AM EST 11/08/2021 4:47 AM EST Narrative Resulting Agency Comment Spec In Lab Uday Alves MD HEMATOLOGY ORDERABLE S Performing Organization Address City/State/[facility] Co de Phone Number [facility] [place] [address] * (ABNORMAL) Hemogram (11/08/2021 4:30 AM EST) White Blood Cell 18.3(H) 4.0 - 9.5 x10(3)/[facility] Red Blood Cell 3.30(L) 4.00 - 5.21 x10(6)/ L [facility] Hemoglobin 8.6(L) 11.7 - 15.5 g/dL [facility] Hematocrit 27.3(L) 35.7 - 45.8 % [facility] Mean Cell Volume 82.7 82.6 - 94.4 fL [facility] Mean Cell Hemoglobin 26.1(L) 27.1 - 32.0 pg [facility] Mean Cell Hemoglobin Concentration 31.5(L) 31.7 - 35.0 g/dL [facility] Platelet 154 145 - 357 x10(3)/[facility] RDW Standard Deviation 51.0(H) 37.0 - 46.0 fL [facility] RDW coefficient of variation 16.8(H) 11.5 - 14.1 % [facility] Mean Platelet Volume 11.5 7.6 - 12.9 fL [facility] NRBC% auto 0.0 % [facility] NRBC Absolute 0.000 0.000 - 0.000 x10(3)/mc L [facility] Blood 11/08/2021 4:30 AM EST 11/08/2021 4:47 AM EST Narrative Resulting Agency Comment Spec In Lab Uday Alves MD HEMATOLOGY ORDERABLE S [facility] [place] [address] * (ABNORMAL) Basic Metabolic Panel (non-fasting) (11/08/2021 4:30 AM EST) Glucose 117 65 - 199 mg/dL [facility] Comment:Diabetes: >=200 mg/d L plus symptoms Blood Urea Nitrogen 12 8 - 18 mg/dL [facility] Creatinine 1.00 0.70 - 1.20 mg/dL [facility] Sodium 141 135 - 145 mmol/L [facility] Potassium 4.0 3.5 - 5.0 mmol/L [facility] Comment: result rechecked- Please note: ??Patients with WBC >100,000 may have falsely elevated Potassium levels. ??For accurate Potassium quantification in these patients send serum separator tube (gold top) for subsequent determinations. ??Contact the Clinical Chemistry Laboratory if there are any questions. Chloride 108(H) 98 - 107 mmol/L [facility] Carbon Dioxide 23 22 - 31 mmol/L [facility] Anion Gap 10 5 - 15 mmol/L [facility] Calcium 8.3(L) 8.5 - 10.5 mg/dL [facility] Est Glomerular Filtration Rate 72 >=60 mL/min/1. 73 m?? [facility] Comment: This patient? s estimated [...] Dhillon MD CHEMISTRY ORDERABLES Performing Organization Address [facility] Co de Phone Number [facility] [place] [address] * Vancomycin, trough (11/07/2021 9:29 PM EST) Vancomycin, Trough 11.1 mg/L M [facility] Comment: Therapeutic range for complicated [...] Spann MD CHEMISTRY ORDERABLES Performing Organization Address [facility] Co de Phone Number [facility] [place] [address] * XR Abdomen 1 view (Generic) (11/07/2021 [...] who have questions please contact the health personal care aide that requested your imaging first. ? Electronically signed by: Chandrakant Pena MD, [facility] ([phone]), at 11/07/2021 11:43 AM Narrative 11/07/2021 11:43 [...] patients who have questions please contactthe health personal care aide that requested your imaging first. Electronically signed by: Chandrakant Pena MD, [facility]([phone]), at 11/07/2021 11:43 AM Valorie Obrien MD IMG DX ORDERABLES * (ABNORMAL) BLOOD GAS 2 ARTERIAL (11/07/2021 9:40 AM EST) pH, Arterial 7.34(L) 7.35 - 7.45 [facility] PCO2, Arterial 37 35 - 45 mmHg [facility] PO2, Arterial 88 85 - 104 mmHg [facility] Bicarbonate, Arterial 19.2(L) 20.0 - 26.0 mmol/L [facility] Base Excess, Arterial -6.7(L) -3.0 - 3.0 mmol/L [facility] Hgb Blood Gas 8.4(L) 11.7 - 15.5 g/dL [facility] Oxyhemoglobin, Arterial 94.8 94.0 - 97.0 % [facility] Carboxyhemoglob in, Arterial 0.1 % [facility] Comment: Nonsmokers: 0.5-1.5% COHB Smokers: Variable, but usually less than 10% Toxic: 20-30% COHB Lethal: Greater than 60% COHB Methemoglobin, Arterial 0.9 <=1.5 % [facility] Na Whole Blood 134(L) 135 - 145 mmol/L [facility] K Whole Blood 4.3 3.5 - 5.0 mmol/L [facility] Comment: Please note: Patients with WBC >100,000 may have falsely elevated Potassium levels. Contact the Clinical Chemistry Laboratory if there are any questions. ICa Whole Blood 1.11(L) 1.15 - 1.33 mmol/L [facility] Comment: Note: ??Total bilirubin higher than 20 mg/dL may lead to falsely low ionized calcium. CL Whole Blood 111(H) 98 - 107 mmol/L [facility] Gluc Whole Bld 90 65 - 199 mg/dL [facility] Comment:Diabetes: >=200 mg/d L plus symptoms. Lactate WB 0.6 0.5 - 2.2 mmol/L [facility] FIO2 Art 40 % [facility] PF Ratio Art 220 [facility] Blood 11/07/2021 9:40 AM EST 11/07/2021 9:40 AM EST Valorie Obrien MD POINT OF CARE TEST O RDERABLES [facility] [place] [address] * XR Chest One View (11/07/2021 9:16 [...] who have questions please contact the health personal care aide that requested your imaging first. ? Electronically signed by: Dinh Becerril MD, [facility] ([phone]), at 11/07/2021 9:33 AM Narrative 11/07/2021 9:33 AM EST EXAMINATION: XR CHEST ONE VIEW CLINICAL HISTORY: Respiratory Failure TECHNIQUE: 1 view of the chest COMPARISON: 11/06/2021 FINDINGS: Endotracheal tube 3.7 cm above the salomón. [place]-Jazmin catheter has been removed, right IJ sheath [...] Endotracheal tube 3.7 cm above the salomón. [place]-Jazmin catheter has beenremoved, right IJ sheath remains. [...] patients who have questions please contactthe health personal care aide that requested your imaging first. Valorie Obrien MD IMG DX ORDERABLES * Vancomycin, trough (11/07/2021 8:00 AM EST) Vancomycin, Trough 5.1 mg/L [facility] Comment: Therapeutic range for complicated [...] Spann MD CHEMISTRY ORDERABLES Performing Organization Address [facility]/ZIP Co de Phone Number [facility] [place] [address] * Magnesium (11/07/2021 8:00 AM EST) Magnesium 0.86 0.69 - 1.07 mmol/L [facility] Blood 11/07/2021 8:00 AM EST 11/07/2021 8:08 AM EST Narrative Resulting Agency Comment Spec In Lab Valorie Obrien MD CHEMISTRY ORDERABLES Performing Organization Address [facility] Co de Phone Number [facility] [place] [address] * (ABNORMAL) BLOOD GAS 2 ARTERIAL (11/07/2021 6:30 AM EST) pH, Arterial 7.23(Criti cindy) 7.35 - 7.45 [facility] Comment:Not noted by instrum ent internal grinding machine operator. PCO2, Arterial 46(H) 35 - 45 mmHg [facility] PO2, Arterial 90 85 - 104 mmHg [facility] Bicarbonate, Arterial 18.6(L) 20.0 - 26.0 mmol/L [facility] Base Excess, Arterial -9.0(L) -3.0 - 3.0 mmol/L [facility] Hgb Blood Gas 8.6(L) 11.7 - 15.5 g/dL [facility] Oxyhemoglobin, Arterial 94.6 94.0 - 97.0 % [facility] Carboxyhemoglob in, Arterial 0.0 % [facility] Comment: Nonsmokers: 0.5-1.5% COHB Smokers: Variable, but usually less than 10% Toxic: 20-30% COHB Lethal: Greater than 60% COHB Methemoglobin, Arterial 0.9 <=1.5 % [facility] Na Whole Blood 135 135 - 145 mmol/L [facility] K Whole Blood 4.7 3.5 - 5.0 mmol/L [facility] Comment: Please note: Patients with WBC >100,000 may have falsely elevated Potassium levels. Contact the Clinical Chemistry Laboratory if there are any questions. ICa Whole Blood 1.12(L) 1.15 - 1.33 mmol/L [facility] Comment: Note: ??Total bilirubin higher than 20 mg/dL may lead to falsely low ionized calcium. CL Whole Blood 110(H) 98 - 107 mmol/L [facility] Gluc Whole Bld 103 65 - 199 mg/dL [facility] Comment:Diabetes: >=200 mg/d L plus symptoms. Lactate WB 0.4(L) 0.5 - 2.2 mmol/L [facility] FIO2 Art 50 % [facility] PF Ratio Art 180 [facility] Blood 11/07/2021 6:30 AM EST 11/07/2021 6:30 AM EST Valorie Obrien MD POINT OF CARE TEST O RDERABETI [facility] [place] [address] * (ABNORMAL) BLOOD GAS 2 ARTERIAL (11/07/2021 2:07 AM EST) pH, Arterial 7.25(Criti cindy) 7.35 - 7.45 [facility] Comment:Noted by instrument repairer. PCO2, Arterial 40 35 - 45 mmHg [facility] PO2, Arterial 117(H) 85 - 104 mmHg [facility] Bicarbonate, Arterial 17.0(L) 20.0 - 26.0 mmol/L [facility] Base Excess, Arterial -10.3(L) -3.0 - 3.0 mmol/L [facility] Hgb Blood Gas 8.6(L) 11.7 - 15.5 g/dL [facility] Oxyhemoglobin, Arterial 96.3 94.0 - 97.0 % [facility] Carboxyhemoglob in, Arterial 0.3 % [facility] Comment: Nonsmokers: 0.5-1.5% COHB Smokers: Variable, but usually less than 10% Toxic: 20-30% COHB Lethal: Greater than 60% COHB Methemoglobin, Arterial 0.9 <=1.5 % [facility] Na Whole Blood 132(L) 135 - 145 mmol/L [facility] K Whole Blood 4.6 3.5 - 5.0 mmol/L [facility] Comment: Please note: Patients with WBC >100,000 may have falsely elevated Potassium levels. Contact the Clinical Chemistry Laboratory if there are any questions. ICa Whole Blood 1.12(L) 1.15 - 1.33 mmol/L [facility] Comment: Note: ??Total bilirubin higher than 20 mg/dL may lead to falsely low ionized calcium. CL Whole Blood 109(H) 98 - 107 mmol/L [facility] Gluc Whole Bld 105 65 - 199 mg/dL [facility] Comment:Diabetes: >=200 mg/d L plus symptoms. Lactate WB 0.5 0.5 - 2.2 mmol/L [facility] FIO2 Art 70 % [facility] PF Ratio Art 167 [facility] Blood 11/07/2021 2:07 AM EST 11/07/2021 2:07 AM EST Valorie Obrien MD POINT OF CARE TEST O RDERABLES [facility] [place] [address] * Scan, Peripheral Blood (11/07/2021 12:30 AM EST) Pathologist [facility] Plat estimate Decreased [facility] RBC Morphology Abnormal [facility] Hypochromia Slight [facility] Ovalocytes 1-5 /HPF [facility] Stippled RBC Present >1/HPF [facility] Plat, Giant Less than 1 /HPF [facility] Blood 11/07/2021 12:3 0 AM EST 11/07/2021 1:56 AM EST Narrative Resulting Agency Comment Spec In Lab Uday Alves MD HEMATOLOGY ORDERABLE S [facility] [place] [id number] * (ABNORMAL) Differential, Automated (11/07/2021 12:30 AM EST) [facility] Neutrophil % 87.9 % [facility] Neutrophil Absolute 18.75(H) 1.70 - 6.10 x10(3)/mc L [facility] Lymph % 5.4 % [facility] Lymphocytes Abs 1.2 0.9 - 3.2 x10(3)/mc L [facility] Monocyte % 5.0 % [facility] Monocyte Abs 1.1(H) 0.3 - 0.9 x10(3)/mc L [facility] Eos % 0.4 % [facility] Eosinophils Abs 0.1 0.0 - 0.4 x10(3)/mc L [facility] Basophil % 0.2 % [facility] Baso Absolute 0.0 0.0 - 0.1 x10(3)/mc L [facility] Immature Gran % 1.10 % [facility] Comment: Immature granulocytes(IG's)percentage and absolute count will include metamyelocytes, myelocytes, and promyelocytes. Blood smears from CBCs yielding IG's will be scanned manually for concordance. If this scan disagrees with the automated IG or if promyelocytes are noted, a manual differential will be performed. Immature Gran Absolute 0.24(H) 0.00 - 0.04 x10(3)/mc L [facility] Blood 11/07/2021 12:3 0 AM EST 11/07/2021 1:56 AM EST Narrative Resulting Agency Comment Spec In Lab Uday Alves MD HEMATOLOGY ORDERABLE S [facility] [place] [address] * (ABNORMAL) Hemogram (11/07/2021 12:30 AM EST) White Blood Cell 21.4(H) 4.0 - 9.5 x10(3)/mc L [facility] Red Blood Cell 2.94(L) 4.00 - 5.21 x10(6)/mc L [facility] Hemoglobin 8.0(L) 11.7 - 15.5 g/dL [facility] Hematocrit 25.3(L) 35.7 - 45.8 % [facility] Mean Cell Volume 86.1 82.6 - 94.4 fL [facility] Mean Cell Hemoglobin 27.2 27.1 - 32.0 pg [facility] Mean Cell Hemoglobin Concentration 31.6(L) 31.7 - 35.0 g/dL [facility] Platelet 132(L) 145 - 357 x10(3)/mc L [facility] RDW Standard Deviation 53.4(H) 37.0 - 46.0 fL [facility] RDW coefficient of variation 17.1(H) 11.5 - 14.1 % [facility] Mean Platelet Volume 12.2 7.6 - 12.9 fL [facility] NRBC% auto 0.0 % [facility] NRBC Absolute 0.000 0.000 - 0.000 x10(3)/mc L [facility] Blood 11/07/2021 12:3 0 AM EST 11/07/2021 1:56 AM EST Narrative Resulting Agency Comment Spec In Lab Uday Alves MD HEMATOLOGY ORDERABLE S [facility] [place] [address] * (ABNORMAL) Basic Metabolic Panel (non-fasting) (11/07/2021 12:30 AM EST) Glucose Not Perf 65 - 199 [facility] Comment: sample improperly processed Sample too old to perform test. Diabetes: >=200 mg/dL plus symptoms Blood Urea Nitrogen 14 8 - 18 mg/dL [facility] Creatinine 1.55(H) 0.70 - 1.20 mg/dL [facility] Sodium 139 135 - 145 mmol/L [facility] Potassium 5.2(H) 3.5 - 5.0 mmol/L [facility] Comment: Please note: ??Patients with WBC >100,000 may have falsely elevated Potassium levels. ??For accurate Potassium quantification in these patients send serum separator tube (gold top) for subsequent determinations. ??Contact the Clinical Chemistry Laboratory if there are any questions. Chloride 111(H) 98 - 107 mmol/L [facility] Carbon Dioxide 18(L) 22 - 31 mmol/L [facility] Anion Gap 10 5 - 15 mmol/L [facility] Calcium 7.6(L) 8.5 - 10.5 mg/dL [facility] Est Glomerular Filtration Rate 42(L) >=60 mL/min/1. 73 m?? [facility] Comment: This patient? s estimated [...] In Lab Yohannes Dhillon MD CHEMISTRY ORDERABLES [facility] [place] [address] * (ABNORMAL) BLOOD GAS 2 ARTERIAL (11/06/2021 8:44 PM EST) pH, Arterial 7.24(Criti cindy) 7.35 - 7.45 [facility] Comment:Noted by instrument repairer. PCO2, Arterial 42 35 - 45 mmHg [facility] PO2, Arterial 80(L) 85 - 104 mmHg [facility] Bicarbonate, Arterial 17.6(L) 20.0 - 26.0 mmol/L [facility] Base Excess, Arterial -9.7(L) -3.0 - 3.0 mmol/L [facility] Hgb Blood Gas 9.1(L) 11.7 - 15.5 g/dL [facility] Oxyhemoglobin, Arterial 93.2(L) 94.0 - 97.0 % [facility] Carboxyhemoglob in, Arterial 0.3 % [facility] Comment: Nonsmokers: 0.5-1.5% COHB Smokers: Variable, but usually less than 10% Toxic: 20-30% COHB Lethal: Greater than 60% COHB Methemoglobin, Arterial 0.8 <=1.5 % [facility] Na Whole Blood 131(L) 135 - 145 mmol/L [facility] K Whole Blood 4.6 3.5 - 5.0 mmol/L [facility] Comment: Please note: Patients with WBC >100,000 may have falsely elevated Potassium levels. Contact the Clinical Chemistry Laboratory if there are any questions. ICa Whole Blood 1.13(L) 1.15 - 1.33 mmol/L [facility] Comment: Note: ??Total bilirubin higher than 20 mg/dL may lead to falsely low ionized calcium. CL Whole Blood 108(H) 98 - 107 mmol/L [facility] Gluc Whole Bld 109 65 - 199 mg/dL [facility] Comment:Diabetes: >=200 mg/d L plus symptoms. Lactate WB 0.9 0.5 - 2.2 mmol/L [facility] FIO2 Art 80 % [facility] PF Ratio Art 100 [facility] Blood 11/06/2021 8:44 PM EST 11/06/2021 8:44 PM EST Valorie Obrien MD POINT OF CARE TEST O RDERABLES Performing Organization Address [facility] Co de Phone Number [facility] [place] [address] * Magnesium (11/06/2021 8:30 PM EST) Magnesium 0.80 0.69 - 1.07 mmol/L [facility] Blood 11/06/2021 8:30 PM EST 11/06/2021 8:44 PM EST Narrative Resulting Agency Comment Spec In Lab Valorie Obrien MD CHEMISTRY ORDERABLES Performing Organization Address [facility] Co de Phone Number [facility] [place] [address] * Blood culture (11/06/2021 8:00 PM EST) Blood Culture No growth at 5 days. [facility] Blood STRUCTURE OF LEFT HAND / Unknown 11/06/2021 8:00 PM EST 11/06/2021 8:40 PM EST Narrative Resulting Agency Comment Spec In Lab Valorie Obrien MD MICROBIOLOGY - BLOOD ORDERABLES Performing Organization Address [facility] Co de Phone Number [facility] [place] [address] * Blood culture (11/06/2021 6:47 PM EST) Blood Culture No growth at 5 days. [facility] Blood 11/06/2021 6:47 PM EST 11/06/2021 7:12 PM EST Narrative Resulting Agency Comment Spec In Lab Valorie Obrien MD MICROBIOLOGY - BLOOD ORDERABLES Performing Organization Address [facility] de Phone Number [facility] [place] [address] * XR Chest One View (11/06/2021 6:39 [...] who have questions please contact the health personal care aide that requested your imaging first. ? Narrative [...] patients who have questions please contactthe health personal care aide that requested your imaging first. Electronically signed by: Danielle Rausch MD, [facility]([phone]), at 11/07/2021 9:56 AM Valorie Obrien MD IMG DX ORDERABLES * (ABNORMAL) BLOOD GAS 2 ARTERIAL (11/06/2021 5:59 PM EST) pH, Arterial 7.23(Criti cindy) 7.35 - 7.45 [facility] Comment:not Noted by instrum ent internal grinding machine operator. PCO2, Arterial 43 35 - 45 mmHg [facility] PO2, Arterial 71(L) 85 - 104 mmHg [facility] Bicarbonate, Arterial 17.6(L) 20.0 - 26.0 mmol/L [facility] Base Excess, Arterial -9.9(L) -3.0 - 3.0 mmol/L [facility] Hgb Blood Gas 9.4(L) 11.7 - 15.5 g/dL [facility] Oxyhemoglobin, Arterial 90.6(L) 94.0 - 97.0 % [facility] Carboxyhemoglob in, Arterial 0.3 % [facility] Comment: Nonsmokers: 0.5-1.5% COHB Smokers: Variable, but usually less than 10% Toxic: 20-30% COHB Lethal: Greater than 60% COHB Methemoglobin, Arterial 0.8 <=1.5 % [facility] Na Whole Blood 134(L) 135 - 145 mmol/L [facility] K Whole Blood 4.4 3.5 - 5.0 mmol/L [facility] Comment: Please note: Patients with WBC >100,000 may have falsely elevated Potassium levels. Contact the Clinical Chemistry Laboratory if there are any questions. ICa Whole Blood 1.11(L) 1.15 - 1.33 mmol/L [facility] Comment: Note: ??Total bilirubin higher than 20 mg/dL may lead to falsely low ionized calcium. CL Whole Blood 109(H) 98 - 107 mmol/L [facility] Gluc Whole Bld 125 65 - 199 mg/dL [facility] Comment:Diabetes: >=200 mg/d L plus symptoms. Lactate WB 1.7 0.5 - 2.2 mmol/L [facility] FIO2 Art 70 % [facility] PF Ratio Art 101 [facility] Blood 11/06/2021 5:59 PM EST 11/06/2021 5:59 PM EST Valorie Obrien MD POINT OF CARE TEST O RDERABLES [facility] [place] [address] * (ABNORMAL) BLOOD GAS 2 ARTERIAL (11/06/2021 2:33 PM EST) pH, Arterial 7.33(L) 7.35 - 7.45 [facility] PCO2, Arterial 34(L) 35 - 45 mmHg [facility] PO2, Arterial 67(L) 85 - 104 mmHg [facility] Bicarbonate, Arterial 17.5(L) 20.0 - 26.0 mmol/L [facility] Base Excess, Arterial -8.4(L) -3.0 - 3.0 mmol/L [facility] Hgb Blood Gas 8.6(L) 11.7 - 15.5 g/dL [facility] Oxyhemoglobin, Arterial 90.9(L) 94.0 - 97.0 % [facility] Carboxyhemoglob in, Arterial 0.3 % [facility] Comment: Nonsmokers: 0.5-1.5% COHB Smokers: Variable, but usually less than 10% Toxic: 20-30% COHB Lethal: Greater than 60% COHB Methemoglobin, Arterial 0.9 <=1.5 % [facility] Na Whole Blood 132(L) 135 - 145 mmol/L [facility] K Whole Blood 4.0 3.5 - 5.0 mmol/L [facility] Comment: Please note: Patients with WBC >100,000 may have falsely elevated Potassium levels. Contact the Clinical Chemistry Laboratory if there are any questions. ICa Whole Blood 1.09(L) 1.15 - 1.33 mmol/L [facility] Comment: Note: ??Total bilirubin higher than 20 mg/dL may lead to falsely low ionized calcium. CL Whole Blood 112(H) 98 - 107 mmol/L [facility] Gluc Whole Bld 103 65 - 199 mg/dL [facility] Comment:Diabetes: >=200 mg/d L plus symptoms. Lactate WB 0.8 0.5 - 2.2 mmol/L [facility] FIO2 Art 50 % [facility] PF Ratio Art 134 [facility] Blood 11/06/2021 2:33 PM EST 11/06/2021 2:33 PM EST Valorie Obrien MD POINT OF CARE TEST O FRANCISCO JAVIER Performing Organization Address City/State/[facility] Co de Phone Number [facility] [place] [address] * Lower Respiratory Culture Tracheal Aspirate (11/06/2021 12:20 PM EST) Lower Respiratory Culture Many mixed bacterial morphotypes suggestive of normal upper respiratory al [facility] Gram Stain Many Neutrophils seen Few squamous epithelial cells seen Many mixed bacterial morphotypes suggestive of normal upper respiratory al [facility] Tracheal Aspirate 11/06/2021 12:20 PM EST 11/06/2021 12:51 PM EST Narrative Resulting Agency Comment Spec In Lab Tameka Spann MD MICROBIOLOGY - GENER AL ORDERABLES [facility] [place] [address] * (ABNORMAL) BLOOD GAS 2 ARTERIAL (11/06/2021 7:46 AM EST) pH, Arterial 7.29(Criti cindy) 7.35 - 7.45 [facility] Comment:Noted by instrument repairer. PCO2, Arterial 40 35 - 45 mmHg [facility] PO2, Arterial 62(L) 85 - 104 mmHg [facility] Bicarbonate, Arterial 18.9(L) 20.0 - 26.0 mmol/L [facility] Base Excess, Arterial -7.6(L) -3.0 - 3.0 mmol/L [facility] Hgb Blood Gas 9.1(L) 11.7 - 15.5 g/dL [facility] Oxyhemoglobin, Arterial 89.0(L) 94.0 - 97.0 % [facility] Carboxyhemoglob in, Arterial 0.3 % [facility] Comment: Nonsmokers: 0.5-1.5% COHB Smokers: Variable, but usually less than 10% Toxic: 20-30% COHB Lethal: Greater than 60% COHB Methemoglobin, Arterial 0.9 <=1.5 % [facility] Na Whole Blood 128(L) 135 - 145 mmol/L [facility] K Whole Blood 4.0 3.5 - 5.0 mmol/L [facility] Comment: Please note: Patients with WBC >100,000 may have falsely elevated Potassium levels. Contact the Clinical Chemistry Laboratory if there are any questions. ICa Whole Blood 1.06(L) 1.15 - 1.33 mmol/L [facility] Comment: Note: ??Total bilirubin higher than 20 mg/dL may lead to falsely low ionized calcium. CL Whole Blood 110(H) 98 - 107 mmol/L [facility] Gluc Whole Bld 94 65 - 199 mg/dL [facility] Comment:Diabetes: >=200 mg/d L plus symptoms. Lactate WB 0.9 0.5 - 2.2 mmol/L [facility] FIO2 Art 40 % [facility] PF Ratio Art 155 [facility] Blood 11/06/2021 7:46 AM EST 11/06/2021 7:46 AM EST Valorie Obrien MD POINT OF CARE TEST O RDERABLES [facility] [place] [address] * XR Chest One View (11/06/2021 6:36 [...] who have questions please contact the health personal care aide that requested your imaging first. ? Electronically signed by: Kimberley Pichardo MD, [facility] ([phone]), at 11/06/2021 6:47 AM Narrative 11/06/2021 6:47 AM EST EXAMINATION: XR CHEST ONE VIEW CLINICAL HISTORY: IABP placement TECHNIQUE: 1 view of the chest COMPARISON: Chest x-ray 11/05/2021. FINDINGS: Endotracheal tube terminates 3 cm above the salomón. Enteric tube courses below the diaphragm and beyond the [id number]. Right IJV approach catheter terminates in the [...] tube coursesbelow the diaphragm and beyond the [id number]. Right IJV approach catheter terminates in the [...] patients who have questions please contactthe health personal care aide that requested your imaging first. Electronically signed by: Kimberley Pichardo MD, [facility]([phone]), at 11/06/2021 6:47 AM Valorie Obrien MD IMG DX ORDERABLES * (ABNORMAL) BLOOD GAS 2 ARTERIAL (11/06/2021 4:28 AM EST) pH, Arterial 7.21(Criti cindy) 7.35 - 7.45 [facility] Comment:Noted by instrument repairer. PCO2, Arterial 46(H) 35 - 45 mmHg [facility] PO2, Arterial 66(L) 85 - 104 mmHg [facility] Bicarbonate, Arterial 18.1(L) 20.0 - 26.0 mmol/L [facility] Base Excess, Arterial -9.9(L) -3.0 - 3.0 mmol/L [facility] Hgb Blood Gas 9.9(L) 11.7 - 15.5 g/dL [facility] Oxyhemoglobin, Arterial 88.6(L) 94.0 - 97.0 % [facility] Carboxyhemoglob in, Arterial 0.3 % [facility] Comment: Nonsmokers: 0.5-1.5% COHB Smokers: Variable, but usually less than 10% Toxic: 20-30% COHB Lethal: Greater than 60% COHB Methemoglobin, Arterial 0.9 <=1.5 % [facility] Na Whole Blood 130(L) 135 - 145 mmol/L [facility] K Whole Blood 4.2 3.5 - 5.0 mmol/L [facility] Comment: Please note: Patients with WBC >100,000 may have falsely elevated Potassium levels. Contact the Clinical Chemistry Laboratory if there are any questions. ICa Whole Blood 1.14(L) 1.15 - 1.33 mmol/L [facility] Comment: Note: ??Total bilirubin higher than 20 mg/dL may lead to falsely low ionized calcium. CL Whole Blood 107 98 - 107 mmol/L [facility] Gluc Whole Bld 107 65 - 199 mg/dL [facility] Comment:Diabetes: >=200 mg/d L plus symptoms. Lactate WB 0.8 0.5 - 2.2 mmol/L [facility] FIO2 Art 40 % [facility] PF Ratio Art 165 [facility] Blood 11/06/2021 4:28 AM EST 11/06/2021 4:28 AM EST Valorie Obrien MD POINT OF CARE TEST O RDERABLES [facility] [place] [address] * Scan, Peripheral Blood (11/06/2021 4:25 AM EST) Pathologist [facility] estimate Normal [facility] RBC Morphology Abnormal [facility] Macrocyte 1-5 /HPF [facility] Hypochromia Slight [facility] Tear Cell 1-5 /HPF [facility] Annel Cells 1-5 /HPF [facility] Stippled RBC Present >1/HPF [facility] Blood 11/06/2021 4:25 AM EST 11/06/2021 4:37 AM EST Narrative Resulting Agency Comment Spec In Lab Uday Alves MD HEMATOLOGY ORDERABLE S [facility] [place] [address] * (ABNORMAL) Differential, Automated (11/06/2021 4:25 AM EST) Pathologist [facility] Neutrophil % 75.1 % [facility] Neutrophil Absolute 12.72(H) 1.70 - 6.10 x10(3)/mc L [facility] Lymph % 13.5 % [facility] Lymphocytes Abs 2.3 0.9 - 3.2 x10(3)/mc L [facility] Monocyte % 8.7 % [facility] Monocyte Abs 1.5(H) 0.3 - 0.9 x10(3)/mc L [facility] Eos % 1.8 % [facility] Eosinophils Abs 0.3 0.0 - 0.4 x10(3)/mc L [facility] Basophil % 0.4 % [facility] Baso Absolute 0.1 0.0 - 0.1 x10(3)/mc L [facility] Immature Gran % 0.50 % [facility] Comment: Immature granulocytes(IG's)percentage and absolute count will include metamyelocytes, myelocytes, and promyelocytes. Blood smears from CBCs yielding IG's will be scanned manually for concordance. If this scan disagrees with the automated IG or if promyelocytes are noted, a manual differential will be performed. Immature Gran Absolute 0.09(H) 0.00 - 0.04 x10(3)/mc L [facility] Blood 11/06/2021 4:25 AM EST 11/06/2021 4:37 AM EST Narrative Resulting Agency Comment Spec In Lab Uday Alves MD HEMATOLOGY ORDERABLE S [facility] [place] [address] * (ABNORMAL) Hemogram (11/06/2021 4:25 AM EST) White Blood Cell 17.0(H) 4.0 - 9.5 x10(3)/mc L [facility] Red Blood Cell 3.38(L) 4.00 - 5.21 x10(6)/mc L [facility] Hemoglobin 9.2(L) 11.7 - 15.5 g/dL [facility] Hematocrit 28.5(L) 35.7 - 45.8 % [facility] Mean Cell Volume 84.3 82.6 - 94.4 fL [facility] Mean Cell Hemoglobin 27.2 27.1 - 32.0 pg [facility] Mean Cell Hemoglobin Concentration 32.3 31.7 - 35.0 g/dL [facility] Platelet 156 145 - 357 x10(3)/mc L [facility] RDW Standard Deviation 51.4(H) 37.0 - 46.0 fL [facility] RDW coefficient of variation 16.7(H) 11.5 - 14.1 % [facility] Mean Platelet Volume 11.4 7.6 - 12.9 fL [facility] NRBC% auto 0.0 % [facility] NRBC Absolute 0.000 0.000 - 0.000 x10(3)/mc L [facility] Blood 11/06/2021 4:25 AM EST 11/06/2021 4:37 AM EST Narrative Resulting Agency Comment Spec In Lab Uday Alves MD HEMATOLOGY ORDERABLE S Performing Organization Address [facility]/ZIP Co de Phone Number [facility] [place] [address] * Heparin (unfractionated) Level (11/06/2021 4:25 AM EST) UF Heparin 0.73 IU/mL [facility] Comment: Heparin (anti-Xa) levels should [...] MD HEMATOLOGY ORDERABLE S Performing Organization Address [facility]/ZIP Co de Phone Number [facility] [place] [address] * (ABNORMAL) Basic Metabolic Panel (non-fasting) (11/06/2021 4:25 AM EST) Glucose 109 65 - 199 mg/dL [facility] Comment:Diabetes: >=200 mg/d L plus symptoms Blood Urea Nitrogen 14 8 - 18 mg/dL [facility] Creatinine 1.34(H) 0.70 - 1.20 mg/dL [facility] Sodium 138 135 - 145 mmol/L [facility] Potassium 4.5 3.5 - 5.0 mmol/L [facility] Comment: Please note: ??Patients with WBC >100,000 may have falsely elevated Potassium levels. ??For accurate Potassium quantification in these patients send serum separator tube (gold top) for subsequent determinations. ??Contact the Clinical Chemistry Laboratory if there are any questions. Chloride 108(H) 98 - 107 mmol/L [facility] Carbon Dioxide 19(L) 22 - 31 mmol/L [facility] Anion Gap 11 5 - 15 mmol/L [facility] Calcium 7.8(L) 8.5 - 10.5 mg/dL [facility] Est Glomerular Filtration Rate 50(L) >=60 mL/min/1. 73 m?? [facility] Comment: This patient? s estimated [...] In Lab Yohannes Dhillon MD CHEMISTRY ORDERABLES [facility] [place] [address] * Prothrombin Time (11/06/2021 4:25 AM EST) Prothrombin Time 12.4 9.4 - 12.5 sec [facility] International Normalization Ratio 1.1 [facility] Comment: An INR <2.0 indicates [...] MD HEMATOLOGY ORDERABLE S Performing Organization Address City/[facility]/ZIP Co de Phone Number [facility] [place] [address] * (ABNORMAL) Hepatic Function Panel (11/06/2021 4:25 AM EST) Pathologist [facility] Protein, Total 5.3(L) 6.1 - 8.0 g/dL [facility] Albumin 3.3 3.2 - 5.2 g/dL [facility] Aspartate Aminotransferase 107(H) 0 - 30 unit/L [facility] Alanine Aminotransferase 64(H) 0 - 30 unit/L [facility] Alkaline Phosphatase 61 35 - 105 unit/L [facility] Bilirubin, Total 0.2 0.2 - 1.3 mg/dL [facility] Bilirubin, Direct 0.2 0.0 - 0.3 mg/dL [facility] Blood 11/06/2021 4:25 AM EST 11/06/2021 4:37 AM EST Narrative Resulting Agency Comment Spec In Lab Valorie Obrien MD CHEMISTRY ORDERABLES Performing Organization Address City/[facility] Co de Phone Number [facility] [place] [address] * (ABNORMAL) BLOOD GAS 2 ARTERIAL (11/05/2021 4:53 PM EST) pH, Arterial 7.36 7.35 - 7.45 [facility] PCO2, Arterial 34(L) 35 - 45 mmHg [facility] PO2, Arterial 71(L) 85 - 104 mmHg [facility] Bicarbonate, Arterial 18.6(L) 20.0 - 26.0 mmol/L [facility] Base Excess, Arterial -6.8(L) -3.0 - 3.0 mmol/L [facility] Hgb Blood Gas 8.9(L) 11.7 - 15.5 g/dL [facility] Oxyhemoglobin, Arterial 92.5(L) 94.0 - 97.0 % [facility] Carboxyhemoglob in, Arterial 0.3 % [facility] Comment: Nonsmokers: 0.5-1.5% COHB Smokers: Variable, but usually less than 10% Toxic: 20-30% COHB Lethal: Greater than 60% COHB Methemoglobin, Arterial 0.7 <=1.5 % [facility] Na Whole Blood 130(L) 135 - 145 mmol/L [facility] K Whole Blood 4.0 3.5 - 5.0 mmol/L [facility] Comment: Please note: Patients with WBC >100,000 may have falsely elevated Potassium levels. Contact the Clinical Chemistry Laboratory if there are any questions. ICa Whole Blood 1.09(L) 1.15 - 1.33 mmol/L [facility] Comment: Note: ??Total bilirubin higher than 20 mg/dL may lead to falsely low ionized calcium. CL Whole Blood 110(H) 98 - 107 mmol/L [facility] Gluc Whole Bld 98 65 - 199 mg/dL [facility] Comment:Diabetes: >=200 mg/d L plus symptoms. Lactate WB 1.0 0.5 - 2.2 mmol/L [facility] FIO2 Art 40 % [facility] PF Ratio Art 178 [facility] Blood 11/05/2021 4:53 PM EST 11/05/2021 4:53 PM EST Valorie Obrien MD POINT OF CARE TEST O RDERABLES [facility] [place] [address] * EKG 12 Lead (11/05/2021 4:01 PM EST) Ventricular rate 44 BPM [facility] Atrial Rate 44 BPM [facility] P-R Interval 140 ms MUSE SYSTEM QRS Duration 86 ms MUSE SYSTEM Q-T Interval 558 ms MUSE SYSTEM QTC Calculated (Bezet) 477 ms MUSE SYSTEM Calculated P Frankford 46 degrees MUSE SYSTEM Calculated R Frank[place] 50 degrees MUSE SYSTEM Calculated T Frankford 39 degrees MUSE SYSTEM INTERPRETATION Marked sinus bradycardia Prolonged QT Nonspecific ST abnormality Abnormal ECG When compared with ECG of 05-NOV-2021 08:59, No significant change was found Confirmed by MD Levi, Wyatt ([id number]) on 11/06/2021 11:47:37 AM MUSE SYSTEM 11/05/2021 4:01 PM EST 11/06/2021 11:47 AM EST Yohannes Dhillon MD ECG ORDERABLES MUSE SYSTEM * (ABNORMAL) BLOOD GAS 2 ARTERIAL (11/05/2021 2:06 PM EST) pH, Arterial 7.26(Criti cindy) 7.35 - 7.45 [facility] PCO2, Arterial 46(H) 35 - 45 mmHg [facility] PO2, Arterial 85 85 - 104 mmHg [facility] Bicarbonate, Arterial 20.1 20.0 - 26.0 mmol/L [facility] Base Excess, Arterial -6.9(L) -3.0 - 3.0 mmol/L [facility] Hgb Blood Gas 10.2(L) 11.7 - 15.5 g/dL [facility] Oxyhemoglobin, Arterial 93.6(L) 94.0 - 97.0 % [facility] Carboxyhemoglob in, Arterial 0.3 % [facility] Comment: Nonsmokers: 0.5-1.5% COHB Smokers: Variable, but usually less than 10% Toxic: 20-30% COHB Lethal: Greater than 60% COHB Methemoglobin, Arterial 0.6 <=1.5 % [facility] Na Whole Blood 130(L) 135 - 145 mmol/L [facility] K Whole Blood 4.1 3.5 - 5.0 mmol/L [facility] Comment: Please note: Patients with WBC >100,000 may have falsely elevated Potassium levels. Contact the Clinical Chemistry Laboratory if there are any questions. ICa Whole Blood 1.15 1.15 - 1.33 mmol/L [facility] Comment: Note: ??Total bilirubin higher than 20 mg/dL may lead to falsely low ionized calcium. CL Whole Blood 109(H) 98 - 107 mmol/L [facility] Gluc Whole Bld 100 65 - 199 mg/dL [facility] Comment:Diabetes: >=200 mg/d L plus symptoms. Lactate WB 0.7 0.5 - 2.2 mmol/L [facility] FIO2 Art 40 % [facility] PF Ratio Art 212 [facility] Blood 11/05/2021 2:06 PM EST 11/05/2021 2:06 PM EST Valorie Obrien MD POINT OF CARE TEST O RDERABLES Performing Organization Address City/[facility] Co de Phone Number [facility] [place] [address] * Magnesium (11/05/2021 2:06 PM EST) Magnesium 0.99 0.69 - 1.07 mmol/L [facility] Blood 11/05/2021 2:06 PM EST 11/05/2021 2:29 PM EST Narrative Resulting Agency Comment Spec In Lab Valorie Obrien MD CHEMISTRY ORDERABLES Performing Organization Address [facility]/ZIP Co de Phone Number [facility] [place] [address] * (ABNORMAL) Basic Metabolic Panel (non-fasting) (11/05/2021 2:06 PM EST) Glucose 98 65 - 199 mg/dL [facility] Comment:Diabetes: >=200 mg/d L plus symptoms Blood Urea Nitrogen 15 8 - 18 mg/dL [facility] Creatinine 1.17 0.70 - 1.20 mg/dL [facility] Sodium 137 135 - 145 mmol/L [facility] Potassium 4.3 3.5 - 5.0 mmol/L [facility] Comment: Please note: ??Patients with WBC >100,000 may have falsely elevated Potassium levels. ??For accurate Potassium quantification in these patients send serum separator tube (gold top) for subsequent determinations. ??Contact the Clinical Chemistry Laboratory if there are any questions. Chloride 108(H) 98 - 107 mmol/L [facility] Carbon Dioxide 19(L) 22 - 31 mmol/L [facility] Anion Gap 10 5 - 15 mmol/L [facility] Calcium 7.7(L) 8.5 - 10.5 mg/dL [facility] Est Glomerular Filtration Rate 59(L) >=60 mL/min/1. 73 m?? [facility] Comment: This patient? s estimated [...] In Lab Valorie Obrien MD CHEMISTRY ORDERABLES [facility] [place] [address] * Carotid Duplex, Bilateral (11/05/2021 2:02 PM EST) VB Text Report Department: Vascular Surgery Lab Patient: [id number] (ANIYA LUNDY) CPT: 69844 Referring Physician: VALORIE OBRIEN ?? Phone: Indications: [...] (Bezet) 487 ms MUSE SYSTEM Calculated P Frankford 42 degrees MUSE SYSTEM Calculated R [place] 43 degrees MUSE SYSTEM Calculated T Frankford 44 degrees MUSE SYSTEM INTERPRETATION Sinus bradycardia Prolonged QT Nonspecific ST abnormality Abnormal ECG When compared with ECG of 04-NOV-2021 15:23, No significant change was found I personally reviewed the tracing and edited the fellows interpretation Confirmed by fellow Alexei Gray ([id number]) on 11/05/2021 4:33:54 PM Confirmed by MD Levi, Wyatt ([id number]) on 11/05/2021 4:37:08 PM MUSE SYSTEM 11/05/2021 [...] who have questions please contact the health personal care aide that requested your imaging first. ? Electronically signed by: Danielle Rausch MD, [facility] ([phone]), at 11/05/2021 9:48 AM Narrative 11/05/2021 9:48 AM EST EXAMINATION: XR CHEST ONE VIEW CLINICAL HISTORY: IABP Placement TECHNIQUE: 1 view of the chest COMPARISON: Chest radiograph 11/04/2021 at 2020 and 1000 CTA chest 11/04/2021 FINDINGS: Endotracheal tube tip is 2.8 cm above the salomón. Enteric tube courses below the diaphragm, the tip is not within the bbmut-va-ceiw. Esophageal temperature probe terminates in the mid esophagus. Right IJ approach [place]-Jazmin catheter terminates in the right pulmonary artery. [...] diaphragm, the tip is not within the [id number]-mn-[id number]. Esophageal temperatureprobe terminates in the mid esophagus. Right IJ approach [place]-Jazmin catheterterminates in the right pulmonary artery. Intra-aortic [...] patients who have questions please contactthe health personal care aide that requested your imaging first. Electronically signed by: Danielle Rausch MD, [facility]([phone]), at 11/05/2021 9:48 AM Valorie Obrien MD IMG DX ORDERABLES * (ABNORMAL) BLOOD GAS 2 ARTERIAL (11/05/2021 8:05 AM EST) pH, Arterial 7.38 7.35 - 7.45 [facility] PCO2, Arterial 31(L) 35 - 45 mmHg [facility] PO2, Arterial 92 85 - 104 mmHg [facility] Bicarbonate, Arterial 17.5(L) 20.0 - 26.0 mmol/L [facility] Base Excess, Arterial -7.7(L) -3.0 - 3.0 mmol/L [facility] Hgb Blood Gas 9.8(L) 11.7 - 15.5 g/dL [facility] Oxyhemoglobin, Arterial 95.2 94.0 - 97.0 % [facility] Carboxyhemoglob in, Arterial 0.3 % [facility] Comment: Nonsmokers: 0.5-1.5% COHB Smokers: Variable, but usually less than 10% Toxic: 20-30% COHB Lethal: Greater than 60% COHB Methemoglobin, Arterial 0.7 <=1.5 % [facility] Na Whole Blood 134(L) 135 - 145 mmol/L [facility] K Whole Blood 3.9 3.5 - 5.0 mmol/L [facility] Comment: Please note: Patients with WBC >100,000 may have falsely elevated Potassium levels. Contact the Clinical Chemistry Laboratory if there are any questions. ICa Whole Blood 1.10(L) 1.15 - 1.33 mmol/L [facility] Comment: Note: ??Total bilirubin higher than 20 mg/dL may lead to falsely low ionized calcium. CL Whole Blood 111(H) 98 - 107 mmol/L [facility] Gluc Whole Bld 105 65 - 199 mg/dL [facility] Comment:Diabetes: >=200 mg/d L plus symptoms. Lactate WB 0.8 0.5 - 2.2 mmol/L [facility] FIO2 Art 40 % [facility] PF Ratio Art 230 [facility] Blood 11/05/2021 8:05 AM EST 11/05/2021 8:05 AM EST Valorie Obrien MD POINT OF CARE TEST O RDERABLES Performing Organization Address [facility]/ZIP Co de Phone Number [facility] [place] [address] * (ABNORMAL) CRP, acute inflammation (11/05/2021 6:27 AM EST) C-Reactive Protein 29.1(H) <=4.9 mg/L [facility] Blood Venous Draw / Unknown 11/05/2021 6:27 AM EST 11/05/2021 6:36 AM EST Narrative Resulting Agency Comment Spec In Lab Uday Alves MD CHEMISTRY ORDERABLES Performing Organization Address City/[facility]/ZIP Co de Phone Number [facility] [place] [address] * Heparin (unfractionated) Level (11/05/2021 6:27 AM EST) UF Heparin 0.58 IU/mL [facility] Comment: Heparin (anti-Xa) levels should [...] MD HEMATOLOGY ORDERABLE S Performing Organization Address [facility]/ZIP Co de Phone Number [facility] [place] [address] * (ABNORMAL) Troponin (11/05/2021 6:27 AM EST) Troponin-T 0.06(H) 0.00 - 0.00 ng/mL [facility] Comment: The 99th percentile for Troponin T is less than 0.01 ng/mL, any detectable cTnT concentration using this assay should be considered elevated. According to the third universal definition of myocardial infarction the following criteria with a clinical presentation consistent with acute myocardial ischemia meets the diagnosis for a myocardial infarction ([place]). Detection of a rise and/or fall of cTnT, with at least one value greater than the 99th percentile (> or = 0.01) and with at least one of the following ?? Symptoms of ischemia ?? New or presumed new significant YD-xuksnir-M wave (ST-T) changes or new left bundle [...] additional sample may be indicated. Reference: Third Coburn Definition of Myocardial Infarction. Journal of the [place] [employer] 2012;60:1581-98 Blood 11/05/2021 6:27 AM EST 11/05/2021 6:35 AM EST Narrative Resulting Agency Comment Spec In Lab Valorie Obrien MD CHEMISTRY ORDERABLES Performing Organization Address [facility]/ZIP Co de Phone Number [facility] [place] [address] * Sedimentation rate (11/05/2021 1:08 AM EST) Sedimentation Rate Automated <3 2 - 37 mm/hr [facility] Comment: Effective September 29, 2019 new capillary photometric technology has resulted in a change in reference ranges. It is recommended that each ESR result be reviewed with its own age appropriate reference range. Blood Venous Draw / Unknown 11/05/2021 1:08 AM EST 11/05/2021 1:21 AM EST Narrative Resulting Agency Comment Spec In Lab Uday Alves MD HEMATOLOGY ORDERABLE S [facility] [place] [address] * (ABNORMAL) Differential, Automated (11/05/2021 1:08 AM EST) Neutrophil % 64.8 % [facility] Neutrophil Absolute 7.68(H) 1.70 - 6.10 x10(3)/[facility] Lymph % 24.6 % [facility] Lymphocytes Abs 2.9 0.9 - 3.2 x10(3)/[facility] Monocyte % 8.4 % [facility] Monocyte Abs 1.0(H) 0.3 - 0.9 x10(3)/ L [facility] Eos % 1.4 % [facility] Eosinophils Abs 0.2 0.0 - 0.4 x10(3)/[facility] Basophil % 0.3 % [facility] Baso Absolute 0.0 0.0 - 0.1 x10(3)/ L [facility] Immature Gran % 0.50 % [facility] Comment: Immature granulocytes(IG's)percentage and absolute count will include metamyelocytes, myelocytes, and promyelocytes. Blood smears from CBCs yielding IG's will be scanned manually for concordance. If this scan disagrees with the automated IG or if promyelocytes are noted, a manual differential will be performed. Immature Gran Absolute 0.06(H) 0.00 - 0.04 x10(3)/ L [facility] Blood 11/05/2021 1:08 AM EST 11/05/2021 1:21 AM EST Narrative Resulting Agency Comment Spec In Lab Uday Alves MD HEMATOLOGY ORDERABLE S Performing Organization Address City/State/[facility] Co de Phone Number [facility] [place] [address] * (ABNORMAL) Hemogram (11/05/2021 1:08 AM EST) White Blood Cell 11.8(H) 4.0 - 9.5 x10(3)/mc L [facility] Red Blood Cell 3.73(L) 4.00 - 5.21 x10(6)/mc L [facility] Hemoglobin 9.7(L) 11.7 - 15.5 g/dL [facility] Hematocrit 30.9(L) 35.7 - 45.8 % [facility] Mean Cell Volume 82.8 82.6 - 94.4 fL [facility] Mean Cell Hemoglobin 26.0(L) 27.1 - 32.0 pg [facility] Mean Cell Hemoglobin Concentration 31.4(L) 31.7 - 35.0 g/dL [facility] Platelet 185 145 - 357 x10(3)/mc L [facility] RDW Standard Deviation 50.1(H) 37.0 - 46.0 fL [facility] RDW coefficient of variation 16.7(H) 11.5 - 14.1 % [facility] Mean Platelet Volume 12.1 7.6 - 12.9 fL [facility] NRBC% auto 0.0 % [facility] NRBC Absolute 0.000 0.000 - 0.000 x10(3)/mc L [facility] Blood 11/05/2021 1:08 AM EST 11/05/2021 1:21 AM EST Narrative Resulting Agency Comment Spec In Lab Uday Alves MD HEMATOLOGY ORDERABLE S Performing Organization Address City/State/[facility] Co de Phone Number [facility] [place] [address] * Phosphorus (11/05/2021 1:08 AM EST) Phosphorus 2.9 2.5 - 4.5 mg/dL [facility] Blood 11/05/2021 1:08 AM EST 11/05/2021 1:21 AM EST Narrative Resulting Agency Comment Spec In Lab Valorie Obrien MD CHEMISTRY ORDERABLES Performing Organization Address [facility] Co de Phone Number [facility] [place] [address] * Magnesium (11/05/2021 1:08 AM EST) Magnesium 0.80 0.69 - 1.07 mmol/L [facility] Blood 11/05/2021 1:08 AM EST 11/05/2021 1:21 AM EST Narrative Resulting Agency Comment Spec In Lab Valorie Obrien MD CHEMISTRY ORDERABLES Performing Organization Address [facility] de Phone Number [facility] [place] [address] * (ABNORMAL) Troponin (11/05/2021 1:08 AM EST) Troponin-T 0.07(H) 0.00 - 0.00 ng/mL [facility] Comment: The 99th percentile for Troponin T is less than 0.01 ng/mL, any detectable cTnT concentration using this assay should be considered elevated. According to the third universal definition of myocardial infarction the following criteria with a clinical presentation consistent with acute myocardial ischemia meets the diagnosis for a myocardial infarction ([place]). Detection of a rise and/or fall of cTnT, with at least one value greater than the 99th percentile (> or = 0.01) and with at least one of the following ?? Symptoms of ischemia ?? New or presumed new significant IB-aqefizf-K wave (ST-T) changes or new left bundle [...] additional sample may be indicated. Reference: Third Coburn Definition of Myocardial Infarction. Journal of the [place] [employer] 2012;60:1581-98 Blood 11/05/2021 1:08 AM EST 11/05/2021 1:21 AM EST Narrative Resulting Agency Comment Spec In Lab Valorie Obrien MD CHEMISTRY ORDERABLES Performing Organization Address [facility] Co de Phone Number [facility] [place] [address] * Heparin (unfractionated) Level (11/05/2021 1:08 AM EST) UF Heparin 0.51 IU/mL [facility] Comment: Heparin (anti-Xa) levels should [...] MD HEMATOLOGY ORDERABLE S Performing Organization Address [facility] Co de Phone Number [facility] [place] [address] * (ABNORMAL) Basic Metabolic Panel (non-fasting) (11/05/2021 1:08 AM EST) Glucose 104 65 - 199 mg/dL [facility] Comment:Diabetes: >=200 mg/d L plus symptoms Blood Urea Nitrogen 17 8 - 18 mg/dL [facility] Creatinine 0.78 0.70 - 1.20 mg/dL [facility] Sodium 137 135 - 145 mmol/L [facility] Comment:result rechecked-KS Potassium 4.0 3.5 - 5.0 mmol/L [facility] Comment: result rechecked-KS Please note: ??Patients with WBC >100,000 may have falsely elevated Potassium levels. ??For accurate Potassium quantification in these patients send serum separator tube (gold top) for subsequent determinations. ??Contact the Clinical Chemistry Laboratory if there are any questions. Chloride 110(H) 98 - 107 mmol/L [facility] Comment:result rechecked-KS Carbon Dioxide 19(L) 22 - 31 mmol/L [facility] Anion Gap 8 5 - 15 mmol/L [facility] Calcium 7.7(L) 8.5 - 10.5 mg/dL [facility] Comment:result rechecked-KS Est Glomerular Filtration Rate 97 >=60 mL/min/1. 73 m?? [facility] Comment: This patient? s estimated [...] In Lab Yohannes Dhillon MD CHEMISTRY ORDERABLES [facility] [place] [address] * (ABNORMAL) BLOOD GAS 2 ARTERIAL (11/05/2021 1:07 AM EST) pH, Arterial 7.36 7.35 - 7.45 [facility] PCO2, Arterial 33(L) 35 - 45 mmHg [facility] PO2, Arterial 86 85 - 104 mmHg [facility] Bicarbonate, Arterial 18.4(L) 20.0 - 26.0 mmol/L [facility] Base Excess, Arterial -7.0(L) -3.0 - 3.0 mmol/L [facility] Hgb Blood Gas 10.8(L) 11.7 - 15.5 g/dL [facility] Oxyhemoglobin, Arterial 94.7 94.0 - 97.0 % [facility] Carboxyhemoglob in, Arterial 0.3 % [facility] Comment: Nonsmokers: 0.5-1.5% COHB Smokers: Variable, but usually less than 10% Toxic: 20-30% COHB Lethal: Greater than 60% COHB Methemoglobin, Arterial 0.7 <=1.5 % [facility] Na Whole Blood 136 135 - 145 mmol/L [facility] K Whole Blood 4.0 3.5 - 5.0 mmol/L [facility] Comment: Please note: Patients with WBC >100,000 may have falsely elevated Potassium levels. Contact the Clinical Chemistry Laboratory if there are any questions. ICa Whole Blood 1.12(L) 1.15 - 1.33 mmol/L [facility] Comment: Note: ??Total bilirubin higher than 20 mg/dL may lead to falsely low ionized calcium. CL Whole Blood 109(H) 98 - 107 mmol/L [facility] Gluc Whole Bld 103 65 - 199 mg/dL [facility] Comment:Diabetes: >=200 mg/d L plus symptoms. Lactate WB 0.8 0.5 - 2.2 mmol/L [facility] FIO2 Art 40 % [facility] PF Ratio Art 215 [facility] Blood 11/05/2021 1:07 AM EST 11/05/2021 1:07 AM EST Valorie Obrien MD POINT OF CARE TEST O RDERABLES Performing Organization Address [facility]/ZIP Co de Phone Number [facility] [place] [address] * Blood culture (11/04/2021 10:50 PM EST) Blood Culture No growth at 5 days. [facility] Blood STRUCTURE OF RIGHT HAND / Unknown 11/04/2021 10:50 PM EST 11/04/2021 11:00 PM EST Narrative Resulting Agency Comment Spec In Lab Yohannes Dhillon MD MICROBIOLOGY - BLOOD ORDERABLES Performing Organization Address [facility] Co de Phone Number [facility] [place] [address] * Blood culture (11/04/2021 10:15 PM EST) Blood Culture No growth at 5 days. [facility] Blood ANTECUBITAL REGION STRUCTURE / Unknown 11/04/2021 10:15 PM EST 11/04/2021 10:59 PM EST Narrative Resulting Agency Comment Spec In Lab Yohannes Dhillon MD MICROBIOLOGY - BLOOD ORDERABLES Performing Organization Address City/[facility] Co de Phone Number [facility] [place] [address] * Green Tube HOLD (11/04/2021 8:58 PM EST) Green Hold Sample in lab. [facility] Blood Venous Draw / Unknown 11/04/2021 8:58 PM EST 11/04/2021 9:07 PM EST Uday Alves MD CHEMISTRY ORDERABLES [facility] [place] [address] * (ABNORMAL) BLOOD GAS 2 ARTERIAL (11/04/2021 8:58 PM EST) pH, Arterial 7.40 7.35 - 7.45 [facility] PCO2, Arterial 26(L) 35 - 45 mmHg [facility] PO2, Arterial 228(H) 85 - 104 mmHg [facility] Bicarbonate, Arterial 16.2(L) 20.0 - 26.0 mmol/L [facility] Base Excess, Arterial -8.9(L) -3.0 - 3.0 mmol/L [facility] Hgb Blood Gas 10.7(L) 11.7 - 15.5 g/dL [facility] Oxyhemoglobin, Arterial 98.0(H) 94.0 - 97.0 % [facility] Carboxyhemoglob in, Arterial 0.3 % [facility] Comment: Nonsmokers: 0.5-1.5% COHB Smokers: Variable, but usually less than 10% Toxic: 20-30% COHB Lethal: Greater than 60% COHB Methemoglobin, Arterial 0.6 <=1.5 % [facility] Na Whole Blood 134(L) 135 - 145 mmol/L [facility] K Whole Blood 4.2 3.5 - 5.0 mmol/L [facility] Comment: Please note: Patients with WBC >100,000 may have falsely elevated Potassium levels. Contact the Clinical Chemistry Laboratory if there are any questions. ICa Whole Blood 1.09(L) 1.15 - 1.33 mmol/L [facility] Comment: Note: ??Total bilirubin higher than 20 mg/dL may lead to falsely low ionized calcium. CL Whole Blood 109(H) 98 - 107 mmol/L [facility] Gluc Whole Bld 103 65 - 199 mg/dL [facility] Comment:Diabetes: >=200 mg/d L plus symptoms. Lactate WB 0.9 0.5 - 2.2 mmol/L [facility] FIO2 Art 60 % [facility] PF Ratio Art 380 [facility] Temp Art 35.5 Celsius [facility] Blood 11/04/2021 8:58 PM EST 11/04/2021 8:58 PM EST Valorie Obrien MD POINT OF CARE TEST O RDERABLES [facility] [place] [address] * Extractable Nuclear Antigen (NILAY) Ab (11/04/2021 8:58 PM EST) NILAY Ab Test ?Result ? Flag ??Unit ??RefValue Ab to Extractable Nuclear Ag Eval,S ??SS-A/Ro Ab, IgG, S ?<0.2 ? U ? <1.0 (Negative) ??SS-B/La Ab, IgG, S ?<0.2 ? U ? <1.0 (Negative) ??Sm Ab, IgG, S ? <0.2 ? U ? <1.0 (Negative) ??COTTON TIPPER Ab, IgG, S ?0.5 ?U ? <1.0 (Negative) ??Scl 70 Ab, IgG, S ? <0.2 ? U ? <1.0 (Negative) ??Consuelo 1 Ab, IgG, S ? <0.2 ? U ? <1.0 (Negative) ?Test Performed by: ?[facility] ?[address] [place] [address] ?[employer] Applications Analyst: Binh Clayton M.D. Ph.D.; CLIA# [id number] [facility] Blood 11/04/2021 8:58 PM EST 11/05/2021 10:21 AM EST Narrative Resulting Agency Comment Spec In Lab Valorie Obrien MD LAB SEND OUT ORDERAB LES Performing Organization Address City/State/[facility] Co de Phone Number [facility] [place] [address] * DARIAN (11/04/2021 8:58 PM EST) DARIAN Ab Screen Test ?Result ? Flag ??Unit ??RefValue Antinuclear Ab, HEp-2 ? <1:80 (Negative) ? <1:80 (Negative) ??Substrate, S ? ADDITIONAL INFORMATION --------- ?Method: Immunofluorescence using HEp-2 cellular substrate. ?Test Performed by: ?[facility] ?[address] [place] [address] ?[employer] Applications Analyst: Binh Clayton M.D. Ph.D.; CLIA# [id number] [facility] Blood 11/04/2021 8:58 PM EST 11/05/2021 10:21 AM EST Narrative Resulting Agency Comment Spec In Lab Valorie Obrien MD LAB SEND OUT ORDERAB LES [facility] [place] [address] * XR Chest One View (11/04/2021 8:22 [...] who have questions please contact the health personal care aide that requested your imaging first. ? Electronically signed by: Jennifer Bassett MD, [facility] ([phone]), at 11/04/2021 8:53 PM Narrative 11/04/2021 8:53 PM EST EXAMINATION: XR CHEST ONE VIEW CLINICAL HISTORY: S/p mobile lab technician requiring multiple shocks, now with IABP placed; Confirmation of proper [place], ETT, and balloon pump placement TECHNIQUE: 1 [...] XR CHEST ONE VIEW CLINICAL HISTORY: S/p mobile lab technician requiring multiple shocks, now with IABPplaced; Confirmation of proper [place], ETT, and balloon pump placement TECHNIQUE: 1 [...] patients who have questions please contactthe health personal care aide that requested your imaging first. Electronically signed by: Jennifer Bassett MD, [facility]([phone]), at 11/04/2021 8:53 PM Valorie Obrien MD IMG DX ORDERABLES * CARDIAC CATHETERIZATION (11/04/2021 6:30 PM EST) Anatomical Region Laterality Modality Other Narrative 11/06/2021 5:59 AM EST ?[facility] ? Cardiac Catheterization/Intervention Report ? Patient Name: Aniya LundyJosse ? Procedure Date: 11/04/2021 ? A #: [id number] ? Primary Physician: Jama Melo ? Case #: [id number] ? File Name: [id number] ? Catheterization Order Number: [id number] ? [facility] ? Final Report [place], [place] ? Patient Name: ? Aniya A. Kamron ?ID#: ?[id number] ? : ?1985 ? Procedure Date: ? [...] procedure was Emergent. The indication for ?the calibration laboratory technician visit is cardiac arrhythmia. Chest pain symptom [...] defibrillations. ? Comments: ?Patient brought to the calibration laboratory technician due to recurrent VT/VF requiring mutiple ?defibrillations. [...] not to perform angiography of the RCA. ?[place] Jazmin catheter placed via the RIJ with [...] line / sheath insert, IABP insertion in calibration laboratory technician, ?ABG, [place] (flow directed cath) insertion, vascular ultrasound and ?hypothermia device. ? Jama Melo M.D. ? Electronically Signed by: Jama Melo M.D. ? Report Finalized: 11/04/2021 ??19:32 ? Report Last Ammended: 11/12/2021 ??09:10 ? Procedure Note Jama Melo MD - 11/12/2021 [facility] Cardiac Catheterization/Intervention Report Patient Name: Trina Lundyher Natalie Procedure Date: 11/04/2021 A #: [id number] Primary Physician: Jama Melo Case #: [id number] File Name: [id number] Catheterization Order Number: [id number] [facility] FinalReport [place], [place] Patient Name: Aniya Lundy ID#:[id number] :1985 Procedure Date: November 04, 2021 Case [...] patient was designated as ASAClass V. The [facility] clinical frailty scale is 2: Well. [...] diagnostic procedure was Emergent. Theindication for the calibration laboratory technician visit is cardiac arrhythmia. Chest pain symptomassessment [...] multiple defibrillations. Comments: Patient brought to the calibration laboratory technician due to recurrent VT/VF requiringmutiple defibrillations. ST [...] not to perform angiography of the RCA. [place] Jazmin catheter placed via the RIJ with [...] sheath insert, IABP insertion in cathlab, ABG, [place] (flow directed cath) insertion, vascular ultrasound and hypothermia device. Jama Melo M.D. Electronically Signed by: Jama Melo M.D. Report Finalized: 11/04/2021 19:32 Report Last Ammended: 11/12/2021 09:10 Jama Melo MD CARDIAC CATH ORDERAB LES * (ABNORMAL) Point of Care Blood Gas Historical (11/04/2021 5:57 PM EST) pH, POC 7.39 7.35 - 7.45 [facility] pCO2, POC 36 35 - 45 mmHg [facility] pO2, POC 315(H) 85 - 104 mmHg [facility] Base Excess, POC -3.0 -3.0 - 3.0 mmol/L [facility] Bicarbonate, POC 21.9 20.0 - 26.0 mmol/L [facility] Sodium, POC 140 135 - 145 mmol/L [facility] POC Potassium 4.5 3.5 - 5.0 mmol/L [facility] POC Hematocrit 34.0 34.0 - 45.0 % [facility] POC Calc Hgb 11.6 11.2 - 15.7 g/dL [facility] Comment:The calculation of h emoglobin from hematocrit assumes a normal MCHC. POC Bgas Loc CC LAB [facility] Blood 11/04/2021 5:57 PM EST 11/08/2021 9:00 AM EST Neeraj Pompa MD CHEMISTRY ORDERABLES [facility] [place] [address] * (ABNORMAL) Differential, Automated (11/04/2021 3:30 PM EST) Neutrophil % 80.8 % [facility] Neutrophil Absolute 13.58(H) 1.70 - 6.10 x10(3)/[facility] Lymph % 12.3 % [facility] Lymphocytes Abs 2.1 0.9 - 3.2 x10(3)/[facility]ORY Monocyte % 6.0 % [facility] Monocyte Abs 1.0(H) 0.3 - 0.9 x10(3)/[facility]ORY Eos % 0.2 % [facility] Eosinophils Abs 0.0 0.0 - 0.4 x10(3)/[facility]ORY Basophil % 0.2 % [facility] Baso Absolute 0.0 0.0 - 0.1 x10(3)/[facility] Immature Gran % 0.50 % [facility] Comment: Immature granulocytes(IG's)percentage and absolute count will include metamyelocytes, myelocytes, and promyelocytes. Blood smears from CBCs yielding IG's will be scanned manually for concordance. If this scan disagrees with the automated IG or if promyelocytes are noted, a manual differential will be performed. Immature Gran Absolute 0.08(H) 0.00 - 0.04 x10(3)/[facility] Blood 11/04/2021 3:30 PM EST 11/04/2021 3:59 PM EST Narrative Resulting Agency Comment Spec In Lab Aniya Henry MD HEMATOLOGY ORDERABLE S [facility] [place] [address] * (ABNORMAL) Hemogram (11/04/2021 3:30 PM EST) White Blood Cell 16.8(H) 4.0 - 9.5 x10(3)/[facility] Red Blood Cell 4.23 4.00 - 5.21 x10(6)/[facility] Hemoglobin 11.0(L) 11.7 - 15.5 g/dL [facility] Hematocrit 34.9(L) 35.7 - 45.8 % [facility] Mean Cell Volume 82.5(L) 82.6 - 94.4 fL [facility] Mean Cell Hemoglobin 26.0(L) 27.1 - 32.0 pg [facility] Mean Cell Hemoglobin Concentration 31.5(L) 31.7 - 35.0 g/dL [facility] Platelet 230 145 - 357 x10(3)/ L [facility] RDW Standard Deviation 49.1(H) 37.0 - 46.0 [facility]ORY RDW coefficient of variation 16.6(H) 11.5 - 14.1 % [facility] Mean Platelet Volume 11.9 7.6 - 12.9 fL [facility] NRBC% auto 0.0 % [facility] NRBC Absolute 0.000 0.000 - 0.000 x10(3)/[facility] Blood 11/04/2021 3:30 PM EST 11/04/2021 3:59 PM EST Narrative Resulting Agency Comment Spec In Lab Aniya Henry MD HEMATOLOGY ORDERABLE S Performing Organization Address City/State/[facility] Co de Phone Number [facility] [place] [address] * EKG 12 Lead (11/04/2021 3:23 PM EST) Ventricular rate 64 BPM MUSE SYSTEM Atrial Rate 64 BPM MUSE SYSTEM P-R Interval 116 ms MUSE SYSTEM QRS Duration 92 ms MUSE SYSTEM Q-T Interval 444 ms MUSE SYSTEM QTC Calculated (Bezet) 458 ms MUSE SYSTEM Calculated P [place] 49 degrees MUSE SYSTEM Calculated R [place] 57 degrees MUSE SYSTEM Calculated T [place] 57 degrees MUSE SYSTEM INTERPRETATION Normal sinus rhythm Nonspecific ST abnormality Abnormal ECG When compared with ECG of 04-NOV-2021 07:37, Vent. rate has decreased BY ??54 BPM Confirmed by MD Sims Stanislav ([id number]) on 11/04/2021 5:21:19 PM MUSE SYSTEM 11/04/2021 3:23 PM EST 11/04/2021 5:21 PM EST Valorie Obrien MD ECG ORDERABLES Performing Organization Address City/[facility]/ZIP Co de Phone Number MUSE SYSTEM * POCT Glucose (11/04/2021 2:54 PM EST) Glucose, POC 94 65 - 199 mg/dL [facility] Comment: Supplemental ranges: <140 mg/dL before meals <180 mg/dL all other times of the day Blood 11/04/2021 2:54 PM EST 11/04/2021 2:54 PM EST Valorie Obrien MD POINT OF CARE TEST O RDERABLES Performing Organization Address [facility] Co de Phone Number [facility] [place] [address] * (ABNORMAL) Troponin (11/04/2021 1:00 PM EST) Troponin-T 0.24(H) 0.00 - 0.00 ng/mL [facility] Comment: Called by: MAC, Read back by: Tio Cuevas, Date/Time:11/04/21 13:49. The 99th percentile for Troponin T is less than 0.01 ng/mL, any detectable cTnT concentration using this assay should be considered elevated. According to the third universal definition of myocardial infarction the following criteria with a clinical presentation consistent with acute myocardial ischemia meets the diagnosis for a myocardial infarction ([place]). Detection of a rise and/or fall of cTnT, with at least one value greater than the 99th percentile (> or = 0.01) and with at least one of the following ?? Symptoms of ischemia ?? New or presumed new significant AU-epysrkb-H wave (ST-T) changes or new left bundle [...] additional sample may be indicated. Reference: Third [place] Definition of Myocardial Infarction. Journal of the [place] [employer] 2012;60:1581-98 Blood 11/04/2021 1:00 PM EST 11/04/2021 1:13 PM EST Narrative Resulting Agency Comment Spec In Lab Valorie Obrien MD CHEMISTRY ORDERABLES [facility] [place] [address] * (ABNORMAL) BLOOD GAS 2 ARTERIAL (11/04/2021 12:57 PM EST) pH, Arterial 7.36 7.35 - 7.45 [facility] PCO2, Arterial 37 35 - 45 mmHg [facility] PO2, Arterial 187(H) 85 - 104 mmHg [facility] Bicarbonate, Arterial 20.4 20.0 - 26.0 mmol/L [facility] Base Excess, Arterial -5.1(L) -3.0 - 3.0 mmol/L [facility] Hgb Blood Gas 12.0 11.7 - 15.5 g/dL [facility] Oxyhemoglobin, Arterial 97.4(H) 94.0 - 97.0 % [facility] Carboxyhemoglob in, Arterial 0.3 % [facility] Comment: Nonsmokers: 0.5-1.5% COHB Smokers: Variable, but usually less than 10% Toxic: 20-30% COHB Lethal: Greater than 60% COHB Methemoglobin, Arterial 0.5 <=1.5 % [facility] Na Whole Blood 138 135 - 145 mmol/L [facility] K Whole Blood 5.0 3.5 - 5.0 mmol/L [facility] Comment: Please note: Patients with WBC >100,000 may have falsely elevated Potassium levels. Contact the Clinical Chemistry Laboratory if there are any questions. ICa Whole Blood 1.12(L) 1.15 - 1.33 mmol/L [facility] Comment: Note: ??Total bilirubin higher than 20 mg/dL may lead to falsely low ionized calcium. CL Whole Blood 107 98 - 107 mmol/L [facility] Gluc Whole Bld 92 65 - 199 mg/dL [facility] Comment:Diabetes: >=200 mg/d L plus symptoms. Lactate WB 1.1 0.5 - 2.2 mmol/L [facility] Blood 11/04/2021 12:5 7 PM EST 11/04/2021 12:57 PM EST Valorie Obrien MD POINT OF CARE TEST O RDERABLES Performing Organization Address City/State/[facility] Co de Phone Number [facility] [place] [address] * ECHO LMTD W/O CONTRAST W LMTD SPEC DOPP COLOR DOPP (11/04/2021 12:12 PM EST) EF 68 [facility] SYSTEM Anatomical Region Laterality Modality Other 11/04/2021 Narrative 11/04/2021 12:58 PM EST Procedure: ?Transthoracic Echocardiogram Patient: ?KAMRON MANZANO A ?(Age): 1985(36y) Med Rec#: ? [id number] ?Sex: ?F ? Site Loc: ? [facility] ?Ht / Wt: ??163(cm)/70(kg) Pt. Loc: ?ED ?BSA: ?1.76 Study Date: ?? 11/04/2021 ?Pt. Type: Inpatient Tape: ? Referring: Horace Nielsen Referring: Uday Alves ([id number]) Reading: Noah Moreira ??([id number]) Salesperson Wigs: Gunnar Castañeda RDCS Diagnosis: *Cardiac arrest, cause [...] Vmax ?0.73 ? m/sec ? MV deceleration [id number] ? msec ? MV A-wave Vmax ?0.76 [...] 11/04/2021 12:58:08 Images reviewed and interpretation verified [facility] Cardiac Ultrasound Laboratory Procedure Note Noah Moreira MD - 11/04/2021 Procedure: Transthoracic Echocardiogram Patient: KAMRON Torres DOB(Age): 1985(36y) Med Rec#: [id number] Sex: F Site Loc: [facility] Ht / Wt: 163(cm)/70(kg) Pt. Loc: ED BSA: 1.76 Study Date: 11/04/2021 Pt. Type: Inpatient Tape: Referring: Horace Nielsen Referring: Uday Alves ([id number]) Reading: Harish Noah M ([id number]) Salesperson Wigs: Gunnar Castañeda OLGA Diagnosis: *Cardiac arrest, cause [...] limited spectral Doppler and color Doppler performed. ALPHOSNO performed Myocardial Strain Imaging Chambers 2D Value [...] MV E-wave Vmax 0.73 m/sec MV deceleration [id number] msec MV A-wave Vmax 0.76 m/sec MV [...] 11/04/2021 12:58:08 Images reviewed and interpretation verified [facility] Cardiac Ultrasound Laboratory Horace Nielsen MD ECHO ORDERABLES * Intubation (11/04/2021 10:51 AM EST) Narrative Horace Nielsen MD - 11/04/2021 10:51 AM EST Dudley Owens MD ? 11/04/2021 10:55 AM Intubation Date/Time: 11/04/2021 10:51 AM Performed by: Dudley Owens MD Authorized by: Yohannes Dhillon MD [place] Protocol: ??Emergent situation ?Patient identity confirmed: ??Arm band ??Time out: Immediately prior to the procedure a time out was called ?? A time out verifies correct patient, procedure, equipment, ground support equipment assembler and site/side marked as required: Indications: ??Indications: [...] Owens MD Authorized by: Horace Nielsen MD [place] Protocol: ??Emergent situation ?Patient identity confirmed: ??Arm band ??Time out: Immediately prior to the procedure a time out was called ?? A time out verifies correct patient, procedure, equipment, ground support equipment assembler and site/side marked as required: Preparation: ??Preparation: [...] who have questions please contact the health personal care aide that requested your imaging first. ? Electronically signed by: JIM CARL MD, [facility] ([phone]), at 11/04/2021 10:17 AM Narrative 11/04/2021 10:17 [...] patients who have questions please contactthe health personal care aide that requested your imaging first. Electronically signed by: JIM CARL MD, [facility]([phone]), at 11/04/2021 10:17 AM Horace Nielsen MD [...] who have questions please contact the health personal care aide that requested your imaging first. ? Electronically signed by: JIM CRAL MD, [facility] ([phone]), at 11/04/2021 10:18 AM Narrative 11/04/2021 10:18 [...] patients who have questions please contactthe health personal care aide that requested your imaging first. Electronically signed by: JIM CARL MD, [facility]([phone]), at 11/04/2021 10:18 AM Horace Nielsen MD [...] who have questions please contact the health personal care aide that requested your imaging first. ? Electronically signed by: JIM CARL MD, [facility] ([phone]), at 11/04/2021 9:52 AM Narrative 11/04/2021 9:52 [...] patients who have questions please contactthe health personal care aide that requested your imaging first. Electronically signed by: JIM CARL MD, [facility]([phone]), at 11/04/2021 9:52 AM Horace Nielsen MD [facility] CT ORDERABLES * CT Head wo Contrast [...] who have questions please contact the health personal care aide that requested your imaging first. ? Electronically signed by: Alejo Garcia MD, [facility] ([phone]), at 11/04/2021 9:55 AM Narrative 11/04/2021 9:55 [...] patients who have questions please contactthe health personal care aide that requested your imaging first. Electronically signed by: Alejo Garcia MD, [facility]([phone]), at 11/04/2021 9:55 AM Horace Nielsen MD IMG CT ORDERABLES * (ABNORMAL) BLOOD GAS 2 ARTERIAL (11/04/2021 8:43 AM EST) pH, Arterial 7.23(Crit ical) 7.35 - 7.45 [facility] Comment: Critical notified to Dr. Maria Luz Dong by instrument repairer immediately following run time. PCO2, Arterial 44 35 - 45 mmHg [facility] PO2, Arterial 199(H) 85 - 104 mmHg [facility] Bicarbonate, Arterial 18.1(L) 20.0 - 26.0 mmol/L [facility] Base Excess, Arterial -9.4(L) -3.0 - 3.0 mmol/L [facility] Hgb Blood Gas 11.8 11.7 - 15.5 g/dL [facility] Oxyhemoglobin, Arterial 97.3(H) 94.0 - 97.0 % [facility] Carboxyhemoglobi n, Arterial 0.3 % [facility] Comment: Nonsmokers: 0.5-1.5% COHB Smokers: Variable, but usually less than 10% Toxic: 20-30% COHB Lethal: Greater than 60% COHB Methemoglobin, Arterial 0.6 <=1.5 % [facility] Na Whole Blood 139 135 - 145 mmol/L [facility] K Whole Blood 4.0 3.5 - 5.0 mmol/L [facility] Comment: Please note: Patients with WBC >100,000 may have falsely elevated Potassium levels. Contact the Clinical Chemistry Laboratory if there are any questions. ICa Whole Blood 1.11(L) 1.15 - 1.33 mmol/L [facility] Comment: Note: ??Total bilirubin higher than 20 mg/dL may lead to falsely low ionized calcium. CL Whole Blood 108(H) 98 - 107 mmol/L [facility] Gluc Whole Bld 128 65 - 199 mg/dL [facility] Comment:Diabetes: >=200 mg/d L plus symptoms. Lactate WB 2.2 0.5 - 2.2 mmol/L [facility] Blood 11/04/2021 8:43 AM EST 11/04/2021 8:43 AM EST Horace Nielsen MD POINT OF CARE TEST ORDERABLES Performing Organization Address City/State/[facility] Co de Phone Number [facility] [place] [address] * (ABNORMAL) Urinalysis Microscopic Exam (11/04/2021 8:40 AM EST) RBC, Urine 1 0 - 4 /HPF [facility] WBC, Urine 2 0 - 5 /HPF [facility] Squamous Epithelial Cells Raw Data, Urine 4 <=4 /HPF [facility] Hyaline Casts, Urine 7(H) 0 - 2 /LPF [facility] Indwelling Catheter Urine 11/04/2021 8:40 AM EST 11/04/2021 9:06 AM EST Narrative Resulting Agency Comment Spec In Lab Horace Nielsen MD URINE ORDERABLES [facility] [place] [address] * (ABNORMAL) Rapid Drug Screen w/o Confirmation, Urine (11/04/2021 8:40 AM EST) Barbiturates Screen, Urine None Detected None Detected [facility] Comment: The barbiturate screen detects [...] Benzodiazepines Screen, Urine Presumptive Pos(A) None Detected [facility] Comment: The benzodiazepines screen detects [...] Cocaine Screen, Urine None Detected None Detected [facility] Comment: The cocaine metabolites screen detects benzoylecgonine (Cocaine Metabolite) at concentrations >150 ng/mL. A ? Presumptive Positive? result indicates that the screening result was positive but has not yet been confirmed by a highly-specific method. As with any screen, occasional false positive results from cross-reacting substances may occur. Not for Medico-Legal Purposes. Methadone Metabolites Screen, Urine None Detected None Detected [facility] Comment: The methadone metabolite screen detects EDDP (major methadone metabolite) at concentrations >100 ng/mL. A ? Presumptive Positive? result indicates that the screening result was positive but has not yet been confirmed by a highly-specific method. As with any screen, occasional false positive results from cross-reacting substances may occur. Not for Medico-Legal Purposes. Opiate Screen, Urine None Detected None Detected [facility] Comment: The opiates screen detects [...] Cannabinoid Screen, Urine None Detected None Detected [facility] Comment: The marijuana metabolites screen detects the THC metabolite (30-kqk-5-carboxy-delta 9-THC) at concentrations >20 ng/mL. A ? Presumptive Positive? result indicates that the screening result was positive but has not yet been confirmed by a highly-specific method. As with any screen, occasional false positive results from cross-reacting substances may occur. Not for Medico-Legal Purposes. Oxycodone Screen, Urine None Detected None Detected [facility] Comment: The oxycodone screen detects oxycodone and oxymorphone at concentrations >100 ng/mL. A ? Presumptive Positive? result indicates that the screening result was positive but has not yet been confirmed by a highly-specific method. As with any screen, occasional false positive results from cross-reacting substances may occur. Not for Medico-Legal Purposes. Buprenorphine Screen, Urine None Detected None Detected [facility] Comment: The buprenorphine screen detects buprenorphine at concentrations >5 ng/mL. A ? Presumptive Positive? result indicates that the screening result was positive but has not yet been confirmed by a highly-specific method. As with any screen, occasional false positive results from cross-reacting substances may occur. Not for Medico-Legal Purposes. Fentanyl Screen, Urine None Detected None Detected [facility] Comment: The fentanyl screen detects fentanyl at concentrations >2 ng/mL. A ? Presumptive Positive? result indicates that the screening result was positive but has not yet been confirmed by a highly-specific method. As with any screen, occasional false positive results from cross-reacting substances may occur. Not for Medico-Legal Purposes. Tricyclics Screen, Urine None Detected None Detected [facility] Comment: The tricyclics screen detects [...] Ethanol Screen, Urine None Detected None Detected [facility] Comment:This urine ethanol a ssay detects ethanol at concentrations >/= 100 mg/L. Amphetamines Screen, Urine None Detected None Detected [facility] Comment: The amphetamine screen detects d-amphetamine and d-methamphetamine at concentrations >300 ng/mL. A ? Presumptive Positive? result indicates that the screening result was positive but has not yet been confirmed by a highly-specific method. As with any screen, occasional false positive results from cross-reacting substances may occur. Not for Medico-Legal Purposes. Adulterants Screen, Urine None Detected None Detected [facility] Comment: No adulteration or dilution of this urine sample was detected. All urine samples submitted for urine drugs of abuse analysis are tested for creatinine concentration, pH, and for the presence of oxidants, nitrites, and chromate. Urine 11/04/2021 8:40 AM EST 11/04/2021 9:06 AM EST Narrative Resulting Agency Comment Spec In Lab Horace Nielsen MD CHEMISTRY ORDERABL ES Performing Organization Address City/State/[facility] Co de Phone Number [facility] [place] [address] * (ABNORMAL) Urinalysis with reflex Culture (11/04/2021 8:40 AM EST) Glucose, Urine Dipstick Negative Negative mg/dL [facility] Protein, Urine Dipstick 100(A) Negative mg/dL [facility] Bilirubin, Urine Dipstick Negative Negative mg/dL [facility] Comment: Clinical correlation required for positive Urine Bilirubin results as false positive may occur with some drugs and drug related products. If a false positive is suspected a serum total bilirubin should be considered if clinically indicated. Urobilinogen, Urine Dipstick Normal Normal mg/dL [facility] pH, Urn (dipstick) 6.5 5.0 - 8.0 [facility] Blood, Urine Dipstick Trace(A) Negative mg/dL [facility] Ketone, Urine Dipstick Negative Negative mg/dL [facility] Nitrite, Urine Dipstick Negative Negative [facility] Leukocytes, Urine Dipstick Negative Negative [facility] Appearance, Urine Dipstick Clear Clear [facility] Specific [place] Urine Automated 1.020 1.005 - 1.030 [facility] Color, Urine Dipstick Yellow Yellow [facility] Reflex to Culture No [facility] Indwelling Catheter Urine 11/04/2021 8:40 AM EST 11/04/2021 9:06 AM EST Narrative Resulting Agency Comment Spec In Lab Horace Nieslen MD URINE ORDERABLES [facility] [place] [address] * POCT urine (11/04/2021 8:40 AM EST) POC Urine HCG Negative Negative - Negative POC Control Internal Controls Acceptable 11/04/2021 8:40 AM EST Horace Nielsen MD POINT OF CARE TEST ORDERABLES * Rapid Drug Screen, Urine (DAVID Request) (11/04/2021 8:40 AM EST) DAVID Conf Requested No [facility] Comment: Collection date/time has been modified to: 08:40:00. ??Previous collection date/time: 07:37:00. Corrected from No [NA] on 11/04/21 9:06:46 EST by Horace Jaramillo Requested See Comment [facility] Comment: Refer to Rapid Drug Screen w/o Confirmation, Urine for results. Collection date/time has been modified to: 08:40:00. ??Previous collection date/time: 07:37:00. Corrected from See Comment [NA] on 11/04/21 9:06:46 EST by Horace Jaramillo Urine 11/04/2021 8:40 AM EST 11/04/2021 9:06 AM EST Narrative Resulting Agency Comment Spec In Lab Horace Nielsen MD URINE ORDERABLES Performing Organization Address [facility] Co de Phone Number [facility] [place] [address] * EKG 12 Lead (11/04/2021 7:37 AM EST) Ventricular rate 118 BPM MUSE SYSTEM Atrial Rate 118 BPM MUSE SYSTEM P-R Interval 134 ms MUSE SYSTEM QRS Duration 86 ms MUSE SYSTEM Q-T Interval 346 ms MUSE SYSTEM QTC Calculated (Bezet) 484 ms MUSE SYSTEM Calculated P [place] 43 degrees MUSE SYSTEM Calculated R [place] 32 degrees MUSE SYSTEM Calculated T [place] 25 degrees MUSE SYSTEM INTERPRETATION Sinus tachycardia Otherwise normal ECG When compared with ECG of 10-OCT-2021 17:09, Left posterior fascicular block is no longer Present Confirmed by MD Elicia, Bertin ([id number]) on 11/06/2021 9:27:47 PM MUSE SYSTEM 11/04/2021 7:37 AM EST 11/06/2021 9:27 PM EST Unknown ECG ORDERABLES Performing Organization Address City/[facility]/ZIP Co de Phone Number MUSE SYSTEM * CK (11/04/2021 7:35 AM EST) Creatine Kinase 135 0 - 160 unit/L [facility] Blood Venous Draw / Unknown 11/04/2021 7:35 AM EST 11/04/2021 7:52 AM EST Narrative Resulting Agency Comment Spec In Lab Horace Nielsen MD CHEMISTRY ORDERABL ES Performing Organization Address [facility] Co de Phone Number [facility] [place] [address] * Triglyceride (11/04/2021 7:35 AM EST) Triglyceride 130 mg/dL [facility] Comment: Average Risk/Lower Risk: <150 mg/dL Borderline High Risk: 150-199 mg/dL High Risk: 200-499 mg/dL Very High Risk: >ri=561 mg/dL Blood Venous Draw / Unknown 11/04/2021 7:35 AM EST 11/04/2021 7:52 AM EST Narrative Resulting Agency Comment Spec In Lab Horace Nielsen MD CHEMISTRY ORDERABL ES Performing Organization Address [facility] de Phone Number [facility] [place] [address] * Scan, Peripheral Blood (11/04/2021 7:35 AM EST) Plat estimate Normal [facility] RBC Morphology Abnormal [facility] Hypochromia Slight [facility] Blood 11/04/2021 7:35 AM EST 11/04/2021 7:48 AM EST Narrative Resulting Agency Comment Spec In Lab Horace Nielsen MD HEMATOLOGY ORDERAB LES Performing Organization Address [facility] Co de Phone Number [facility] [place] [address] * (ABNORMAL) Osmolality (11/04/2021 7:35 AM EST) Osmolality 306(H) 275 - 295 mOsm/kg [facility] Blood Venous Draw / Unknown 11/04/2021 7:35 AM EST 11/04/2021 7:52 AM EST Narrative Resulting Agency Comment Spec In Lab Horace Nielsen MD CHEMISTRY ORDERABL ES Performing Organization Address [facility] Co de Phone Number [facility] [place] [address] * (ABNORMAL) D-Dimer, Quantitative (11/04/2021 7:35 AM EST) D-Dimer 5,001(H) 0 - 500 FEU ng/ml [facility] Comment: The D-Dimer assay is [...] MD HEMATOLOGY ORDERAB LES Performing Organization Address [facility] Co de Phone Number [facility] [place] [address] * Gold Tube HOLD (11/04/2021 7:35 AM EST) Gold Hold Sample in lab. [facility] Blood Venous Draw / Unknown 11/04/2021 7:35 AM EST 11/04/2021 7:53 AM EST Horace Nielsen MD CHEMISTRY ORDERABL ES Performing Organization Address [facility] Co de Phone Number [facility] [place] [address] * Blue Tube HOLD (11/04/2021 7:35 AM EST) Blue Hold Sample in lab. [facility] Blood Venous Draw / Unknown 11/04/2021 7:35 AM EST 11/04/2021 7:49 AM EST Horace Nielsen MD HEMATOLOGY ORDERAB LES Performing Organization Address [facility] Co de Phone Number [facility] [place] [address] * (ABNORMAL) Differential, Automated (11/04/2021 7:35 AM EST) Neutrophil % 72.9 % [facility] Neutrophil Absolute 18.66(H) 1.70 - 6.10 x10(3)/ L [facility] Lymph % 19.3 % [facility] Lymphocytes Abs 4.9(H) 0.9 - 3.2 x10(3)/mc L [facility] Monocyte % 4.2 % [facility] Monocyte Abs 1.1(H) 0.3 - 0.9 x10(3)/ L [facility] Eos % 1.9 % [facility] Eosinophils Abs 0.5(H) 0.0 - 0.4 x10(3)/[facility] Basophil % 0.5 % [facility] Baso Absolute 0.1 0.0 - 0.1 x10(3)/ L [facility] Immature Gran % 1.20 % [facility] Comment: Immature granulocytes(IG's)percentage and absolute count will include metamyelocytes, myelocytes, and promyelocytes. Blood smears from CBCs yielding IG's will be scanned manually for concordance. If this scan disagrees with the automated IG or if promyelocytes are noted, a manual differential will be performed. Immature Gran Absolute 0.30(H) 0.00 - 0.04 x10(3)/ L [facility] Blood 11/04/2021 7:35 AM EST 11/04/2021 7:48 AM EST Narrative Resulting Agency Comment Spec In Lab Horace Nielsen MD HEMATOLOGY ORDERAB LES [facility] [place] [address] * (ABNORMAL) Hemogram (11/04/2021 7:35 AM EST) [facility] White Blood Cell 25.6(H) 4.0 - 9.5 x10(3)/ L [facility] Red Blood Cell 4.96 4.00 - 5.21 x10(6)/mc L [facility] Hemoglobin 12.9 11.7 - 15.5 g/dL [facility] Hematocrit 43.1 35.7 - 45.8 % [facility] Mean Cell Volume 86.9 82.6 - 94.4 fL [facility] Comment: This result has been called to NOT CALLED by Aminah Mojica on 11 04 2021 at 0816, and has not been read back. Mean Cell Hemoglobin 26.0(L) 27.1 - 32.0 pg [facility] Mean Cell Hemoglobin Concentration 29.9(L) 31.7 - 35.0 g/dL [facility] Platelet 298 145 - 357 x10(3)/[facility] LABORATORY RDW Standard Deviation 51.5(H) 37.0 - 46.0 [facility]AT[facility] RDW coefficient of variation 16.5(H) 11.5 - 14.1 % [facility] Mean Platelet Volume 11.5 7.6 - 12.9 [facility] LABORATORY NRBC% auto 0.0 % [facility] NRBC Absolute 0.000 0.000 - 0.000 x10(3)/[facility]ATORY Blood 11/04/2021 7:35 AM EST 11/04/2021 7:48 AM EST Narrative Resulting Agency Comment Spec In Lab Horace Nielsen MD HEMATOLOGY ORDERAB LES [facility] [place] [address] * COVID-19 PCR (11/04/2021 7:35 AM EST) [facility] SARS-CoV-2 RNA (Rapid) Not Detected Not Detected [facility] Comment: This result should be [...] using the Simplexa COVID-19 Direct Assay by [employer] as authorized by the FDA issued Emergency [...] Department of Pathology and Laboratory Medicine at [facility], certified under the Clinical Laboratory Improvement [...] fact sheets at the following FDA website: https://www.fda.gov/medical-devices/lusiusfywyc-mouqvsg-2151-guzym-55-tvvgnsjxk- use-a eqtxxgrobvtxp-iwyuogg-eorybta/xynkw-qrashdhlafc-xkkz SARS-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 [employer] Swab MA [facility] Nasopharyngeal Swab 11/04/19 7:35 AM EST 11/04/2021 10:06 AM EST Comment:Symptoms->COVID-19 S uspected Narrative Resulting Agency Comment Spec In Lab Horace Nielsen MD MICROBIOLOGY - GEN ERAL ORDERABLES Performing Organization Address [facility] Phone Number [facility] [place] [address] * Ethanol Level (11/04/2021 7:35 AM EST) Ethanol <100 <=99 mg/L [facility] Comment: Greater than 800 mg/L (0.08%) should be considered intoxicated. 3400 to 4500 mg/L (0.34 - 0.45%) is considered severe intoxication. Greater than 5500 mg/L (0.55%) is usually fatal. Blood 11/04/2021 7:35 AM EST 11/04/2021 7:48 AM EST Narrative Resulting Agency Comment Spec In Lab Horace Nielsen MD CHEMISTRY ORDERABL ES Performing Organization Address [facility] Phone Number [facility] [place] [address] * Salicylate (11/04/2021 7:35 AM EST) Salicylate <3 mg/L [facility] Comment: Therapeutic Range: ??< 200 mg/L Arthritic Therapy: ??150-300 mg/L Toxic: ?> 350 mg/L ??Concentrations > 500 mg/L may be an indication for alkalinization of urine. Concentrations > 800 mg/L are often an indication for hemodialysis. Blood 11/04/2021 7:35 AM EST 11/04/2021 7:48 AM EST Narrative Resulting Agency Comment Spec In Lab Horace Nielsen MD CHEMISTRY ORDERABL ES Performing Organization Address [facility] de Phone Number [facility] [place] [address] * (ABNORMAL) Acetaminophen level (11/04/2021 7:35 AM EST) Acetamin Lvl <5(L) 10 - 30 mg/L [facility] Comment: Levels >150 mg/L at 4 hours post ingestion or >75 mg/L at 8 hours post ingestion are often an indication for N-Acetylcysteine. Blood 11/04/2021 7:35 AM EST 11/04/2021 7:48 AM EST Narrative Resulting Agency Comment Spec In Lab Horace Nielsen MD CHEMISTRY ORDERABL ES Performing Organization Address [facility] Phone Number [facility] [place] [address] * (ABNORMAL) Phosphorus (11/04/2021 7:35 AM EST) Phosphorus 6.2(H) 2.5 - 4.5 mg/dL [facility] Blood 11/04/2021 7:35 AM EST 11/04/2021 7:48 AM EST Narrative Resulting Agency Comment Spec In Lab Horace Nielsen MD CHEMISTRY ORDERABL ES Performing Organization Address [facility] Phone Number [facility] [place] [address] * Magnesium (11/04/2021 7:35 AM EST) Magnesium 1.04 0.69 - 1.07 mmol/L [facility] Blood 11/04/2021 7:35 AM EST 11/04/2021 7:48 AM EST Narrative Resulting Agency Comment Spec In Lab Horace Nielsen MD CHEMISTRY ORDERABL ES Performing Organization Address [facility] Co de Phone Number [facility] [place] [address] * (ABNORMAL) Troponin (11/04/2021 7:35 AM EST) Troponin-T 0.02(H) 0.00 - 0.00 ng/mL [facility] Comment: Called by: MAYDA, Read back by: Gabriela Astorga, Date/Time:11/04/21 08:25. The 99th percentile for Troponin T is less than 0.01 ng/mL, any detectable cTnT concentration using this assay should be considered elevated. According to the third universal definition of myocardial infarction the following criteria with a clinical presentation consistent with acute myocardial ischemia meets the diagnosis for a myocardial infarction ([place]). Detection of a rise and/or fall of cTnT, with at least one value greater than the 99th percentile (> or = 0.01) and with at least one of the following ?? Symptoms of ischemia ?? New or presumed new significant TT-[id number] wave (ST-T) changes or new left bundle [...] additional sample may be indicated. Reference: Third [place] Definition of Myocardial Infarction. Journal of the [place] [employer] 2012;60:1581-98 Blood 11/04/2021 7:35 AM EST 11/04/2021 7:48 AM EST Narrative Resulting Agency Comment Spec In Lab Horace Nielsen MD CHEMISTRY ORDERABL ES [facility] [place] [address] * (ABNORMAL) Comprehensive metabolic panel (non-fasting) (11/04/2021 7:35 AM EST) [facility] Glucose 196 65 - 199 mg/dL [facility] Comment:Diabetes: >=200 mg/d L plus symptoms Blood Urea Nitrogen 20(H) 8 - 18 mg/dL [facility] Creatinine 1.55(H) 0.70 - 1.20 mg/dL [facility] Sodium 140 135 - 145 mmol/L [facility] Potassium 5.1(H) 3.5 - 5.0 mmol/L [facility] Comment: Please note: ??Patients with WBC >100,000 may have falsely elevated Potassium levels. ??For accurate Potassium quantification in these patients send serum separator tube (gold top) for subsequent determinations. ??Contact the Clinical Chemistry Laboratory if there are any questions. Chloride 104 98 - 107 mmol/L [facility] Carbon Dioxide 19(L) 22 - 31 mmol/L [facility] Anion Gap 17(H) 5 - 15 mmol/L [facility] Calcium 9.4 8.5 - 10.5 mg/dL [facility] Protein, Total 6.8 6.1 - 8.0 g/dL [facility] Albumin 4.4 3.2 - 5.2 g/dL [facility] Aspartate Aminotransferase 72(H) 0 - 30 unit/L [facility] Alanine Aminotransferase 79(H) 0 - 30 unit/L [facility] Alkaline Phosphatase 88 35 - 105 unit/L [facility] Bilirubin, Total 0.2 0.2 - 1.3 mg/dL [facility] Est Glomerular Filtration Rate 42(L) >=60 mL/min/1. 73 m?? [facility] Comment: This patient? s estimated [...] Lab Horace Nielsen MD CHEMISTRY ORDERABL ES [facility] [place] [address] * (ABNORMAL) BLOOD GAS 2 VENOUS (11/04/2021 7:33 AM EST) pH, Venous 7.09(Criti cindy) 7.32 - 7.42 [facility] Comment:Noted by instrument repairer. PCO2, Venous 66(Critica l) 41 - 51 mmHg [facility] Comment:Noted by instrument repairer. PO2, Venous 31 25 - 40 mmHg [facility] Bicarbonate, Venous 19.7 mmol/L [facility] Base Excess, Venous -10.1 mmol/L [facility] Hgb Blood Gas 13.6 11.7 - 15.5 g/dL [facility] Oxyhemoglobin, Venous 40.0 % [facility] Carboxyhemoglob in, Venous 1.8 % [facility] Comment: Nonsmokers: 0.5-1.5% COHB Smokers: Variable, but usually less than 10% Toxic: 20-30% COHB Lethal: Greater than 60% COHB Methemoglobin, Venous 0.5 <=1.5 % [facility] Na Whole Blood 142 135 - 145 mmol/L [facility] K Whole Blood 4.5 3.5 - 5.0 mmol/L [facility] Comment: Please note: Patients with WBC >100,000 may have falsely elevated Potassium levels. Contact the Clinical Chemistry Laboratory if there are any questions. ICa Whole Blood 1.25 1.15 - 1.33 mmol/L [facility] Comment: Note: ??Total bilirubin higher than 20 mg/dL may lead to falsely low ionized calcium. CL Whole Blood 102 98 - 107 mmol/L [facility] Gluc Whole Bld 189 65 - 199 mg/dL [facility] Comment:Diabetes: >=200 mg/d L plus symptoms Lactate WB 6.5(Critic al) 0.5 - 2.2 mmol/L [facility] Comment:Noted by instrument repairer. Blood Gas Source Venous [facility] Blood 11/04/2021 7:33 AM EST 11/04/2021 7:[address] Chio Gonzalez MD POINT OF CARE TEST O RDERABLES [facility] [place] [address] * US Cardiac (POCUS) (11/04/2021 7:25 AM [...] normal RV size, normal valves. CPT Code 97318:Limited Basic Cardiac (09264) Electronically Signed by the following Performing: ?on [...] LVEF, normal RV size,normal valves. CPT Code 22896:Limited Basic Cardiac (34330) Electronically Signed by the following Performing: on [...] Fri11/14/21 at 1827, Heartburn, Routine AMIOdarone (Cordarone) injection ONCE PRN, Starting on 11/04/21 at 1709, Until Fri11/07/21 at 1356, Cath (Intra-Procedure), Routine Given 11/04/2021 5:09 PM EST 150 mg amLODIPine (Norvasc) tablet 10 mg 10 mg, [...] on 11/04/21 at 0911, Until Discontinued, Routine Given 11/13/2021 [...] Given 11/13/2021 12:48 PM EST 600 mg iohexoL (Omnipaque) (350 mg/mL) solution ONCE PRN, Starting on Fri11/04/21 at 1816, Until Fri11/12/21 at 1633, Cath (Intra-Procedure), Routine Given 11/04/2021 6:16 PM EST 12 mLs lidocaine (Lidoderm) 5% patch 3 patch 3 [...] Remove lidocaine 5% patch lidocaine (pf) (Xylocaine) (20 mg/mL) 2% injection syringe ONCE PRN, Starting on 11/04/21 at 1707, Until 11/05/21 at 0930, Cath (Intra-Procedure), Routine Given 11/04/2021 5:07 PM EST 100 mg lidocaine (pf) (Xylocaine) (4 mg/mL) in dextrose 5% 500 mL infusion Administer over 24 Hours, CONTINUOUS PRN, Starting on 11/04/21 at 1716, Until Fri11/12/21 at 1633, Cath (Intra-Procedure), Routine Rate/Dose Verify 11/05/2021 5:00 AM EST 15 mL/hr Rate/Dose Verify 11/05/2021 4:00 AM EST 1 mg/min 15 mL/h r Rate/Dose Verify 11/04/2021 11:00 PM EST 1 mg/min 15 mL/ hr lisinopriL (Zestril) tablet 20 mg 20 mg, Oral, DAILY, First dose (after last modification) on 11/10/21 at 0900, Until Discontinued, Routine Given 11/14/2021 9:02 AM EST 20 mg Given 11/13/2021 9:15 AM EST 20 mg Given 11/12/2021 8:34 AM EST 20 mg methyl salicylate-menthoL (Bengay) 15-10 % cream Topical (Top), 2 TIMES DAILY PRN, for arm pain/soreness, Starting on 11/11/21 at 1731, Until Fri11/14/21 at 1827 Given 11/11/2021 9:18 PM EST nitroGLYcerin (200 mcg/mL) in dextrose 5% 250 mL infusion CONTINUOUS PRN, Starting on 11/04/21 at 1726, Until 11/12/21 at 1633, Cath (Intra-Procedure), Routine New Bag 11/04/2021 5:26 PM EST 25 mcg/min 7.5 mL/hr nitroGLYcerin (Nitrostat) disintegrating tablet 0.4 mg 0.4 [...] Given 11/12/2021 8:34 AM EST 5 mLs sodium chloride 0.9% infusion CONTINUOUS PRN, Starting on 11/04/21 at 1759, Until Fri11/12/21 at 1633, Cath (Intra-Procedure) New Bag 11/04/2021 5:59 PM EST 250 mLs 250 mL/hr white petrolatum-mineral oiL (Eucerin) cream Topical [...] 0833 (Given - Provider: Erendira Giron RN)1328 ([facility] Hold - Provider: Admin Adt - Reason: [...] on Fri11/04/21 at 0911, Until Discontinued, Routine 0834 (Given [...] 0834 (Given - Provider: Erendira Giron RN)1328 ([facility] Hold - Provider: Admin Adt - Reason: Transfer to a Procedural area)163 ([facility] Unhold - Provider: Admin Adt)2037 (Given - Provider: Aura Lamas RN) 09 (Given - Provider: Erednira Giron RN)2149 (Given - Provider: Aura Lamas RN) 09 (Given - Provider: Erendira Giron RN) famotidine (Pepcid) tablet 20 mg 20 mg, Oral, 2 TIMES DAILY, First dose on Fri11/04/21 at 0911, Until Discontinued, Routine 0833 (Given - Provider: Erendira Giron RN)1328 ([facility] Hold - Provider: Admin Adt - Reason: Transfer to a Procedural area)163 ([facility] Unhold - Provider: Admin Adt)2026 (Given - Provider: Aura Lamas RN) 09 [...] 0833 (Given - Provider: Erendira Giron RN)1328 ([facility] Hold - Provider: Admin Adt - Reason: Transfer to a Procedural area)163 ([facility] Unhold - Provider: Admin Adt)2025 (Given - [...] (Patch Applied - Provider: Danae Lowe RN)1328 ([facility] Hold - Provider: Admin Adt - Reason: Transfer to a Procedural area)1633 ([facility] Unhold - Provider: Admin Adt) 0403 (Patch Applied - Provider: Aura Lamas RN) 0437 (Patch Applied - Provider: Aura Lamas RN) lidocaine (Lidoderm) topical patch REMOVAL(Linked Group 1) Transdermal, EVERY 24 HOURS, First dose on Fri11/07/21 at 0430, Until Discontinued, Remove lidocaine 5% patch 1328 ([facility] Hold - Provider: Admin Adt - Reason: Transfer to a Procedural area)1633 ([facility] Unhold - Provider: Admin Adt)1700 (Patch Removed - Provider: Erendira Giron RN) 1700 (Patch Removed - Provider: Erendira Giron RN) lisinopriL (Zestril) tablet 20 mg 20 mg, Oral, DAILY, First dose (after last modification) on Fri11/10/21 at 0900, Until Discontinued, Routine 0834 (Given - Provider: Erendira Giorn RN)1328 ([facility] Hold - Provider: Admin Adt - Reason: Transfer to a Procedural area)1633 ([facility] Unhold - Provider: Admin Adt) 0915 (Given [...] Fri11/09/21 at 2100, Until Discontinued, Routine 1328 ([facility] Hold - Provider: Admin Adt - Reason: Transfer to a Procedural area)1633 ([facility] Unhold - Provider: Admin Adt)2026 (Given - Provider: Aura Lamas RN) 2150 (Given - Provider: Aura Lamas RN) sodium chloride 0.9 % (flush) (BD PosiFlush Normal Saline 0.9) flush 5 mL 5 mL, Intravenous, 2 TIMES DAILY, First dose on 11/04/21 at 2100, Until Discontinued, Routine 0834 (Given - Provider: Erendira Giron RN)1328 ([facility] Hold - Provider: Admin Adt - Reason: Transfer to a Procedural area)1633 ([facility] Unhold - Provider: Admin Adt)2030 (Given - Provider: Aura Lamas RN) 0900 [...] Provider: Danae Lowe RN - Reason: Contraindicated)1328 ([facility] Hold - Provider: Admin Adt - Reason: Transfer to a Procedural area)1400 (Not Given - Provider: Erendira Giron RN - Reason: Transfer to a Procedural area)163 ([facility] Unhold - Provider: Admin Adt)2200 (Not Given [...] RN - Reason: Order parameters not met)1328 ([facility] Hold - Provider: Admin Adt - Reason: Transfer to a Procedural area)1633 ([facility] Unhold - Provider: Admin Adt)2100 (Not Given [...] - Reason: Transfer to a Procedural area)1554 ([facility] Unhold - Provider: Zora Booth RN)1556 (Given - Provider: Zora Booth RN) 0021 (Given - Provider: Aura Lamas RN)1248 (Given - Provider: Erendira Giron, SYBIL)1728 (Given - Provider: Erendira Giron RN) 0601 (Given - Provider: Aura Lamas RN)1121 [...] 0001 (Given - Provider: Danae Lowe RN)1328 ([facility] Hold - Provider: Admin Adt - Reason: Transfer to a Procedural area)1633 ([facility] Unhold - Provider: Admin Adt)2027 (Not Given - Provider: Aura Lamas RN - Reason: See comment - Comment: wasted) hydrOXYzine (Atarax) tablet 50 mg 50 mg, Oral, 3 TIMES DAILY PRN, Starting on 11/11/21 at 1806, Until 11/14/21 at 1827, Anxiety, Routine 1328 ([facility] Hold - Provider: Admin Adt - Reason: Transfer to a Procedural area)1633 ([facility] Unhold - Provider: Admin Adt) ibuprofen (Advil) tablet 600 mg 600 mg, Oral, EVERY 8 HOURS PRN, Starting on Jenelle 11/08/21 at 2100, Until Fri11/14/21 at 1827, Pain, Administer orally with milk or food to minimize GI irritation. Maximum dose of 3,200 mg from all sources in 24 hours, Routine 0518 (Given - Provider: Danae Lowe RN)1328 ([facility] Hold - Provider: Admin Adt - Reason: Transfer to a Procedural area)1633 ([facility] Unhold - Provider: Admin Adt)1702 (Given - Provider: Erendira Giron, SYBIL)1717 (Not Given - Provider: Erendira Giron RN - Reason: See comment - Comment: dulicate order) 0125 (Given - Provider: Aura Lamas RN)1248 (Given - Provider: Erendira Giron, SYBIL)2150 (Given - Provider: Aura Lamas RN) 1121 (Given - Provider: Erendira Giron, SYBIL) methyl salicylate-menthoL (Bengay) 15-10 % cream Topical (Top), 2 TIMES DAILY PRN, for arm pain/soreness, Starting on 11/11/21 at 1731, Until Fri11/14/21 at 1827 1328 ([facility] Hold - Provider: Admin Adt - Reason: Transfer to a Procedural area)1633 ([facility] Unhold - Provider: Admin Adt) nitroGLYcerin (Nitrostat) disintegrating tablet 0.4 mg 0.4 mg, Sublingual, EVERY 5 MIN PRN, Starting on 11/04/21 at 1456, Until 11/14/21 at 1827, Chest pain, May repeat every 5 minutes for a total of three doses. Notify provider if chest pain not relieved with nitroglycerin. Do not administer nitroglycerin if the patient has received or taken phosphodiesterase (PDE-5) inhibitors such as sildenafil, tadalafil or vardenafil within the last 24 to 72 hours., Routine 1328 ([facility] Hold - Provider: Admin Adt - Reason: Transfer to a Procedural area)1633 ([facility] Unhold - Provider: Admin Adt) 0955 (Given - Provider: Erendira Giron, SYBIL) ondansetron (Zofran) tablet 4 mg 4 mg, Oral, DAILY PRN, Starting on 11/11/21 at 1807, Until Fri11/14/21 at 1827, Nausea, Vomiting, Routine 1328 ([facility] Hold - Provider: Admin Adt - Reason: Transfer to a Procedural area)1633 ([facility] Unhold - Provider: Admin Adt) 0403 (Given - Provider: Aura Lamas RN) senna (Senokot) tablet 8.6 mg 8.6 mg, Oral, 2 TIMES DAILY PRN, Starting on Fri11/05/21 at 1554, Until Fri11/14/21 at 1827, Constipation, Routine 1328 ([facility] Hold - Provider: Admin Adt - Reason: Transfer to a Procedural area)1633 ([facility] Unhold - Provider: Admin Adt) sodium chloride 0.9 % (flush) (BD PosiFlush Normal Saline 0.9) flush 5-20 mL 5-20 mL, Intravenous, EVERY 1 MIN PRN, Starting on 11/04/21 at 1456, Until Fri11/14/21 at 1827, flush, Flush pertains to all indwelling lines. Flush per protocol found in the job aid using the link provided on this medication record., Routine 1328 ([facility] Hold - Provider: Admin Adt - Reason: Transfer to a Procedural area)1633 ([facility] Unhold - Provider: Admin Adt) Linked Groups [...] documented as of this encounter Care Teams Rejected Items Clerk Relationship Specialty Start Date End Date Kenia Lawrence APRN [address] [place], [place] [id number] PCP - General Family Medicine 10/10/21 05/20/22 documented as of this encounter
--- OUTSIDE RECORDS SUMMARY | 2024-09-20 11:15 | XMS_ITS | Encounter Summary ---
Author Organization [facility] Address [facility] [place] [address] Care Team Providers Care Slitter Processed Film Name Role Phone Unavailable Primary Care Provider Unavailabl e Encounter Details Date Type Department Care Team (Late st Contact Info) Description 07/28/2021 Interpretation Only [address] [phone] Danica Barrios MD [address] [place] [phone] Social History Tobacco Use Types Packs/Day Years [...] AM EST Routine Obstetrics [place] [phone] Emili Cabrera MD [facility] [place] [address] 09/26/2024 6:00 PM EST Appointment [facility] [place] [address] 10/16/2024 [place] [address] Dudley Aguilar MD [facility] DR OBSTETRICS [place] [address] 11/08/2024 10:00 AM EST Hospital Encounter [place] [address] Arrived documented as of this encounter Procedures Procedure Name Priority Date/Time Associated Diagnosis Comments XR ABDOMEN 1 VIEW STAT 07/28/2021 7:3 6 PM EDT documented in this encounter Results * XR Abdomen 1 view (Generic) (07/28/2021 7:36 PM EDT) PT CLASS E RAD ADMITDTTM RAD PT RAD INFO [id number]^C HANDER^SUNEE R RAD EXAM DESC XABD1^XR KUB^RIS RAD Anatomical Region Laterality Modality Abdomen N/A Radiographic Ewa ging Impressions 07/28/2021 8:19 PM EDT No acute disease Thank you for letting us participate in the care of this patient. ??If you are a health care provider and have any questions regarding this report, please contact the number below. ??For patients who have questions please contact the health home health care worker that requested your imaging first. ? Narrative 07/28/2021 8:19 PM EDT EXAMINATION: XR KUB CLINICAL HISTORY: right flank pain TECHNIQUE: AP supine COMPARISON: None FINDINGS: Normal bowel gas pattern. Small amount of stool. Lung bases are clear. No renal calculi are identified but the presence of stool may obscure small calculi Procedure Note Bev Cuevas MD - 07/28/2021 EXAMINATION: XR KUB CLINICAL HISTORY: right flank pain TECHNIQUE: AP supine COMPARISON: None FINDINGS: Normal bowel gas pattern. Small amount of stool. Lung bases are clear. Norenal calculi are identified but the presence of stool may obscure smallcalculi IMPRESSION No acute disease Thank you for letting us participate in the care of this patient. If youare a health care provider and have any questions regarding this report,please contact the number below. For patients who have questions please contactthe health home health care worker that requested your imaging first. Danica Barrios MD IMG DX ORDERABLES documented in this encounter Visit Diagnoses Not on filedocumented in this encounter
--- OUTSIDE RECORDS SUMMARY | 2024-09-20 11:15 | XMS_ITS | Encounter Summary ---
Author Organization [facility] Address [facility] [place] [address] Care Team Providers Care Price Economist Name Role Phone Unavailable Primary Care Provider Unavailabl e Encounter Details Date Type Department Care Team (Late st Contact Info) Description 08/12/2021 Interpretation Only [address] [phone] Gregorio Light Jr., MD [address] [place] [address] Social History Tobacco Use Types Packs/Day Years [...] AM EST Routine Obstetrics [place] [address] Emili Cabrera MD [facility] [place] [address] 09/26/2024 6:00 PM EST Appointment [facility] [place] [address] 10/16/2024 Hospital [place] [address] Dudley Aguilar MD [facility] DR [place] [address] 11/08/2024 10:00 AM EST Hospital Encounter Non-Invasive [place] [address] Arrived documented as of this encounter Procedures Procedure Name Priority Date/Time Associated Diagnosis Comments XR CHEST PA AND LATERAL STAT 08/12/2021 7:15 PM EDT documented in this encounter Results * XR Chest PA & Lateral (Generic) (08/12/2021 7:15 PM EDT) PT CLASS E RAD ADMITDTTM RAD PT RAD INFO [id number]^L YONS^GREGORIO RAD EXAM DESC XCXR2^XR CHEST 2 VIEWS^RIS RAD Anatomical Region Laterality Modality Chest N/A Radiographic Ewa ging Impressions 08/12/2021 7:38 PM EDT No acute process. Preliminary report signed by: Garret Pop at 08/12/2021 7:29 PM I have personally reviewed the image(s) and the resident's interpretation and agree with the findings, TEETEE HUANG at 08/12/2021 7:38 PM Thank you for letting us participate in the care of this patient. ??If you are a health care provider and have any questions regarding this report, please contact the number below. ??For patients who have questions please contact the health healthcare financial analyst that requested your imaging first. ? Narrative 08/12/2021 7:38 PM EDT EXAMINATION: XR CHEST 2 VIEWS CLINICAL HISTORY: cough shortness of breath TECHNIQUE: PA and lateral views of the chest COMPARISON: Chest radiograph 06/11/2021. FINDINGS: The lungs are clear. ??There is no pneumothorax or pleural effusion. ??The cardiomediastinal silhouette is unremarkable. There is no acute osseous abnormality. Procedure Note Teetee Huang MD - 08/12/2021 EXAMINATION: XR CHEST 2 VIEWS CLINICAL HISTORY: cough shortness of breath TECHNIQUE: PA and lateral views of the chest COMPARISON: Chest radiograph 06/11/2021. FINDINGS: The lungs are clear. There is no pneumothorax or pleural effusion. The cardiomediastinal silhouette is unremarkable. There is no acute osseous abnormality. IMPRESSION No acute process. Preliminary report signed by: Garret Pop at 08/12/2021 7:29 PM I have personally reviewed the image(s) and the resident's interpretationand agree with the findings, TEETEE HUANG at 08/12/2021 7:38 PM Thank you for letting us participate in the care of this patient. If youare a health care provider and have any questions regarding this report,please contact the number below. For patients who have questions please contactthe health healthcare financial analyst that requested your imaging first. Electronically signed by: NANCY ROSALES [facility] ([phone]),at 08/12/2021 7:38 PM Gregorio Light Jr., MD IMG DX ORDERABLES documented in this encounter Visit Diagnoses Not on filedocumented in this encounter
--- OUTSIDE RECORDS SUMMARY | 2024-09-20 11:16 | XMS_ITS | Encounter Summary ---
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 [facility] will be starting you on a very low doseof medication for your anxiety and depression and this will be increased as tolerated to a dose that we hope will help you with your anxiety and allow you to further reduce the amount of valium that you are taking outside the hospital. Call your doctor, your local mental health center, or your local emergency room if you develop worsening symptoms of depression, anxiety, thoughts of harming yourself, thoughts of harming others, or any other decline in your overall condition. [facility] Emergency Services: [facility] [phone] [facility] Emergency Services: [phone] [facility] Central Access Services: [phone] [facility] [place] Main Line: [phone] Activity level: no restrictions from psychiatry Diet: no restrictions from psychiatry Driving: do not drive if sedated by medications Medications have been reviewed with the patient and the patient understands the use and side effects of these medications as evidenced by discussions on interdisciplinary rounds. A copy of the AVS has been reviewed with, and given to, the patient. documented in this encounter Medications at Time of Discharge Medication Sig Dispensed Refills Start Date End Date ipratropium-albuteroL (Duoneb) 0.5 mg-3 mg(2.5 mg base)/3 mL Solution for Nebulization Every 6 hours. 12/29/2017 albuterol 90 mcg/actuation HFA Aerosol Inhaler Inhale 2 puffs into the lungs every 4 hours as needed for Wheezing. Use with spacer calcium carbonate (TUMS) 200 mg calcium (500 mg) Tablet, Chewable Take 1 tablet by mouth as needed. diazePAM (Valium) 5 mg Tablet Take 1 [...] as of this encounter Progress Notes * Mabel Strickland RN - 05/25/2020 3:05 PM EDT Psychiatric Nursing Discharge Note Patient Completed Relapse Prevention Plan: Yes Patient aware of follow-up appointments: Yes, went over w/ pt in D/C paperwork Patient evidences understanding of medication use and regime: Yes, MD went over with pt in D/C paperwork Patient belongings returned: Yes Patient was given opportunity to place crisis number in their personal cellphone: No, number was given to patient in her d/c packet Patient left unit with: [employer]ER At what time? 1500 * Luly Mirza MHT - 05/25/2020 2:29 PM EDT Patient is not interested in smoking cessation after discharge. OLY Holliday 05/25/2020 * Luly Mirza MHT - 05/25/2020 12:09 PM EDT Inpatient Daily Group Note Group: Goals Attendance: Present Behavior: Expressive Therapeutic Work Observed: Moderate Mood: Labile Notes: Outlined group expectations of: not being able to attend group late in addition to not beingable to leave group once there. Group room protocol was discussed: no food, no leaving for the bathroom and water only. Also reminded patients of the twice daily room checks (once per shift) and the rationale for doing so. Group ended with daily meditation from The Language of Letting Go. Patient's goals are: Patient is very unhappy stating that she has mixed emotions and doesn't feel ready to leave. States she doesn't know what her goal is. When a discussion in group was had about feelings not being facts she stated that she didn't agree. Discussing that no one ever listens. This therapist tried to explain the thought feeling behavior model. OLY Holliday 05/25/2020 Patient attended the following therapeutic activities: __Workshop _X Walk __Exercise and Stretching Group __Pet Therapy __On unit activity Significant observations: Outside sit. Asked to get some exposure to the outside before she discharges. OLY HOLLIDAY 05/25/2020 * Baljit Mohan - 05/25/2020 10:08 AM EDT Psychiatry Inpatient - Progress Note 05/25/2020 ID: Jose Juan Lundy is a 34 y.o. female with a PMH of generalized anxiety disorder and major depressive disorder admitted on 05/22/2020 for anxiety, various somatic symptoms, and suicidal ideation. Hospital day 3. Current Working Primary Diagnosis: ALIRIO, MDD, PTSD, BPD, Somatic symptom disorder Pertinent medical issues being addressed: HTN, GERD, asthma, vaginal candidiasis Interval History: (1,1,4) Jose Juan Lundy is a 34 y.o. female voluntarily admitted on 05/22/20 due to worsening anxiety, somatic symptoms, and suicidal ideation. Nursing Report: Slept 6 hrs but states that she slept terribly. Rates anxiety 7/10, depression 8/10. Denies SI, HI, AVH. Notes continued somatic symptoms (facial numbness) and lower back pain. Was observed yelling on the phone yesterday. Treatment Team: Patient reports feeling crappy this morning. She notes that this is partially dueto her somatic symptoms but is also due to feeling anxious about leaving the hospital. She became tearful and stated that she feels safer in the hospital but when asked about what has been helpful for her since admission she was not sure how to answer that. Patient was noted to have taken only one dose of diazepam within the past 24hrs and when asked about this acknowledged that she was worried about side effects. When confronted about her pattern of pushing healthcare providers away, she became upset and stated I push my family away, not doctors. Patient was unable to give a clear answer when asked whether or not she would be able to maintain regular provider visits as an outpatient. Review of Systems: (0,1,2) CONST Feels tired CV Occasional palpitations, chest pressure RESP Cough GI Occasional nausea NEURO Diffuse paraesthesias over entire body PSYCH See above. Physical Exam: (1,6,9) Vitals (24hr Range): Temp: [36.9 ??C (98.4 ??F)-37.4 ??C (99.3 ??F)] Resp: [16-18] Heart Rate: [57-77] BP: (124-153)/(63-86) SpO2: [100 %] Patient Vitals for the past 168 hrs: Weight 05/22/20 1300 70.8 kg (156 lb) Musculoskeletal System: ambulates independently Mental Status Exam: Appearance: The patient appears her stated age, is casually dressed in hospital attire, casually groomed, and sitting comfortably on a chair. Behavior: Appears anxious, avoids eye contact with male providers, hand wringing, rubbing forehead,closing eyes. Cooperative with interviewers. Speech: Normal rate/rhythm/prosody. Language: Fluent [place]. Mood: Crappy Affect: Mildly constricted Thought Process: Linear and goal directed Associations: Intact Thought Content: Denies suicidal ideation or homicidal ideation. Fears somatic symptoms, medicationside effects, and anxiety returning after discharge from the hospital. Perception: Denies auditory or visual hallucinations. No delusions. Orientation: Oriented to person, time, and situation intact grossly. Attention/Concentration: Able to concentrate and focus appropriately during interview, but attention was often fractured during interview. Cognition: Grossly intact to interview. Memory: Recent and remote memory grossly intact. Fund of Knowledge: Appropriate for age and education Insight: Limited (recognizes illness, unable to differentiate somatic vs psychiatric symptoms) Judgment: Limited (sought care, but is non-adherent to medications or regular therapy. Does not want to leave hospital. Ach[place] Suicide Risk Scale - Initial Assessment: Initial Suicide Screening Wish to be : In the last 30 days, have you wished you were or wished you could go to sleepand not wake up?: Yes Suicidal Thoughts: Have you had any actual thoughts of killing yourself?: No Suicidal Thoughts with Method (without Specific Plan or Intent to Act): Have you been thinking about how you might do this?: Yes Suicidal Intent (without Specific Plan): Have you had these thoughts and had some intention of acting on them?: No Suicidal Intent with Specific Plan: Have you started to work out or worked out the details of how to kill yourself? Do you intend to carry out this plan?: No Suicide Behavior Question: Have you ever done anything, started to do anything, or prepared to do anything to end your life?: No Was this within the past 3 months?: No [place] Suicide Risk Scale - Daily Assessment: (most recent): Suicide Daily Screening Suicidal Thoughts: Since you were last asked, have you had any actual thoughts of killing yourself?: No Suicide Behavior Question: Since you were last asked have you done anything, started to do anything, or prepared to do anything to end your life?: No Suicide Risk Factors on Day of Admission: Enduring Factors: absence of significant social support, history of substance abuse, chronic mentalhealth problems, history of previous suicide attempts, limited coping skills, poor emotional regulation, impulsive or aggressive tendencies and history of trauma ?? Dynamic Factors: depressive symptoms ?? Protective Factors: engaged in medical and/or mental health care and future orientation ?? Access to Firearms: No Current Medications: Scheduled: ??? loratadine 10 mg Oral Daily ??? lisinopriL 5 mg Oral BID ??? miconazole 1 applicator Vaginal Nightly ??? prazosin 1 mg Oral TID ??? nicotine 1 patch Transdermal Daily And ??? Patch Verification 1 patch Transdermal BID And ??? nicotine 1 patch Transdermal Daily ??? lidocaine 1 patch Transdermal Q24H ??? sucralfate 1 g Oral TID AC PRN: diazePAM, diazePAM, calcium carbonate, albuteroL, melatonin, nicotine polacrilex, acetaminophen, polyethylene glycoL, ipratropium-albuteroL, lidocaine AND lidocaine, ondansetron, oxymetazoline, hydrOXYzine Labs: Last 24 Hours: No results found for this or any previous visit (from the past 24 hour(s)). Psychiatry Labs: Preg: No results found for: HCGQUAL, HCGQUANT Heme: No results found for: WBC, HGB, HCT, PLATELET, MCV, NEUTROABS No results found for: HA1C, SEDRATE Chem: No results found for: NA, K, CL, CO2, BUN, GLUCOSE, GLUCFASTING No results found for: CALCIUM, MAGNESIUM, PHOS LFTs: Lab Results Component Value Date ALT 13 05/20/2020 AST 13 05/20/2020 ALKPHOS 79 05/20/2020 BILITOT 0.5 05/20/2020 Coags: No results found for: PTT, PT, INR Thyroid: Lab Results Component Value Date TSH 1.16 05/20/2020 Lipids and HgbA1C: No results found for: CHLPL, HDL, CHOLHDL, LDLCHOL, LDLDIRECT, TRIG No results found for: HA1C Vit Lvls: No results found for: [id number], SFOLATE UA: No results found for: GLUCOSEU, KETONESUA, PROTEINUADIP, BLOODUADIP, LEUKOESTERUA, NITRATEUA, WBCUA (May not represent most recent UA results. See eD-H labs for more details.) Tox: No results found for: ETHANOL, ACTMNPHEN, SALICYLATE, LEAD No results found for: UDAUSCREEN Rx Lvls: No results found for: LITHIUM, CARBAMAZEPIN, VALPROATE, LAMOTRIGINE, CLOZAPINE Assessment: Jose Juan Lundy is a 34 y.o. female admitted on 05/22/2020 for increased anxiety, various somatic symptoms, and suicidal ideation. She notes continuing somatic symptoms (diffuse numbness/tingling uponwaking, mental fogginess, dizziness, chest pain, palpitations, coughing) which seem to be the primary focus of her anxiety. On admission she noted that the anxiety had worsened to the point where shewas contemplating suicide I just cant go on like this although she had no plan to act on these thoughts. Based on her somatic symptoms being the primary source of her anxiety and the persistence ofboth the symptoms and her anxious thoughts about the symptoms, she does meet DSM-V criteria for somatic symptom disorder. She noted during an interview that her anxiety mainly seems to stem from various physical symptoms including her cough, GERD, chest palpitations, and diffuse paraesthesias as opposed to other sources. This is contrasted with conversion disorder in which the primary focus is the loss of function rather than the distress, feelings, and excessive behaviors related to the physical symptom. Her previous diagnosis of ALIRIO may also contribute to her overall level of anxiety, although there are typically varied sources of anxiety for ALIRIO (daily activities and plans) as opposed tobeing primarily the result of physical symptoms. Jose Juan also meets DSM-V diagnostic criteria for BPD and PTSD as suggested by Zanirini scale and PCL-5 assessments completed earlier. Although the patient noted that she was amenable to the outpatient plan moving forward, she is extremely anxious about leaving the hospital and having her anxiety return. On admission, she was noted to have SI and is worried that those thoughts will return if she decompensates after leaving the hospital. She has received limited therapeutic intervention in the hospital and delaying discharge is currently not warranted at this time. An outpatient management plan is currently in place. Current Working Primary Diagnosis: ALIRIO, MDD, BPD, PTSD, somatic symptom disorder Plan: # ALIRIO/MDD ?? Initiate SSRI (fluoxetine) as an outpatient. Low dose initially (1mg) liquid form and up-titrating over time to minimize potential for side effects. ?? Taper down dose of diazepam to a 5mg AM and 2mg PM with addition of hydroxyzine 25mg prn. ?? Regular visits with outpatient therapist # Somatic symptom disorder ?? Initiate regular outpatient primary care visits 6-8 weeks apart and not contingent on symptoms. ?? SSRI as above. ?? Outpatient CBT # BPD ?? Outpatient DBT # PTSD ?? Outpatient DBT can be helpful in PTSD co-occurring with BPD, but CBT is the mainstay of therapy. # GERD ?? Sucralfate ?? Calcium carbonate 500mg q6h prn # HTN ?? Lisinopril 10mg (5mg AM, 5mg PM) ?? Prazosin 1mg TID # Asthma ?? Albuterol q4h prn ?? Duonebs q6h prn #Vaginal candidiasis ?? Miconazole 2% cream # Lower Back Pain ?? 700mg/24h Lidocaine patch ?? Acetaminophen 650mg # Tobacco Use ?? 14mg/24hr nicotine patch # Nausea ?? Ondansetron 4mg q8h prn # Seasonal Allergies ?? Loratidine 10mg 1x daily ?? Afrin nasal spray # Supportive Care ?? Activity Level: as tolerated ?? Bowel regimen (Miralax) as needed # Disposition: -Set for discharge this afternoon. Outpatient medications have been sent to pharmacy and provider visits set up with [facility]. Signed By: Balijt Mohan 05/25/2020 * Luly Mirza MHT - 05/24/2020 12:14 PM EDT Inpatient Daily Group Note Group: Goals Notes: Not present - sleeping. Patient to be invited to all groups. OLY Holliday 05/24/2020 Inpatient Daily Group Note Group: ACT - Doing what matters. Discussed values, committed action and barriers that getting in the way of making progress towards a rich, full and meaningful life. Attendance: Present Behavior: Expressive and Conversational Therapeutic Work Observed: Minimal Mood: Stable and Calm Notes: Kept taking about cutting others out of her life as she gives her all to others and they don't give back to her. OLY Holliday 05/24/2020 Patient attended the following therapeutic activities: _X Workshop __Walk __Exercise and Stretching Group __Pet Therapy __On unit activity Significant observations: Finished [employer] project. Started on a trivet. OLY HOLLIDAY 05/24/2020 Patient attended the following therapeutic activities: __Workshop _X Walk __Exercise and Stretching Group __Pet Therapy __On unit activity Significant observations: States she doesn't feel as things are real. Discusses not being ready to leave tomorrow and feeling like no one is listening. OLY HOLLIDAY 05/24/2020 Patient attended the following therapeutic activities: __Workshop _X Walk __Exercise and Stretching Group __Pet Therapy __On unit activity Significant observations: Outside sit. Didn't want to sit at the picnic table due to not knowing who else has sat there. OLY HOLLIDAY 05/24/2020 * Bhargavi Boyle MD - 05/24/2020 10:37 AM EDT Psychiatry Inpatient - Progress Note 05/24/2020 ID: Jose Juan Lundy is a 34 y.o. female with a PMH of generalized anxiety disorder and major depressive disorder admitted on 05/22/2020 for anxiety, various somatic symptoms, and suicidal ideation. Hospital day 2. Current Working Primary Diagnosis: ALIRIO, PTSD, BPD, somatic symptom disorder Pertinent medical issues being addressed: HTN, GERD, yeast infection Interval History: (1,1,4) Jose Juan Lundy is a 34 y.o. female voluntarily admitted on 05/22/20 due to worsening anxiety, somatic symptoms, and suicidal ideation. Nursing Report: Rates anxiety 6/10, denies depression, but endorses feeling down. Denies SI/HI, AVH. Slept 8.25 hrs last night. Some pain 4/10, given tylenol. Some blurry vision, numbness, tinglingthis morning. Took PRN valium this AM. Treatment Team: Patient appears visibly anxious today. She is worried about leaving tomorrow. She says she feels crappy, I just don???t like the way that I???m feeling. She says she feels dizzy, foggy. Her face is tingly. She says I just want to stop feeling this way. She was counseled regarding regular follow-up with her outpatient providers, especially her PCP. She felt that the hydroxyzine worked well for her and is open to a lower dose of valium tonight in combination with hydroxyzine. Review of Systems: (0,1,2) CONST +malaise CV +palpitations, +chest discomfort RESP +cough GI +nausea NEURO Diffuse paraesthesias over entire body PSYCH See above. Physical Exam: (1,6,9) Vitals (24hr Range): Temp: [36.6 ??C (97.9 ??F)-37.1 ??C (98.8 ??F)] Resp: [16-17] Heart Rate: [62-78] BP: (118-149)/(73-90) SpO2: [100 %] Patient Vitals for the past 168 hrs: Weight 05/22/20 1300 70.8 kg (156 lb) Musculoskeletal System: ambulates independently Mental Status Exam: Appearance: The patient appears her stated age, casually dressed. Behavior: Anxious, hunched over, poor eye contact, some hypervigilance and fidgeting with her hands. Cooperative with interviewers. Easily overwhelmed, tearful at times. Speech: Normal rate/rhythm/prosody. Language: Fluent [place]. Mood: Crappy Affect: Constricted to an anxious range Thought Process: Linear, logical, and goal-directed Associations: Intact Thought Content: Denies suicidal ideation or homicidal ideation. +nonspecific somatic complaints Perception: + AH, denies delusions or other hallucinations. Orientation: Grossly oriented by interview. Attention/Concentration: Grossly intact by interview. Cognition: Grossly intact by interview. Memory: Recent and remote memory grossly intact. Fund of Knowledge: Appropriate for age and education. Insight: Limited Judgment: Limited [place] Suicide Risk Scale - Initial Assessment: Initial Suicide Screening Wish to be : In the last 30 days, have you wished you were or wished you could go to sleepand not wake up?: Yes Suicidal Thoughts: Have you had any actual thoughts of killing yourself?: No Suicidal Thoughts with Method (without Specific Plan or Intent to Act): Have you been thinking about how you might do this?: Yes Suicidal Intent (without Specific Plan): Have you had these thoughts and had some intention of acting on them?: No Suicidal Intent with Specific Plan: Have you started to work out or worked out the details of how to kill yourself? Do you intend to carry out this plan?: No Suicide Behavior Question: Have you ever done anything, started to do anything, or prepared to do anything to end your life?: No Was this within the past 3 months?: No [place] Suicide Risk Scale - Daily Assessment: (most recent): Suicide Daily Screening Suicidal Thoughts: Since you were last asked, have you had any actual thoughts of killing yourself?: No Suicide Behavior Question: Since you were last asked have you done anything, started to do anything, or prepared to do anything to end your life?: No Suicide Risk Factors on Day of Admission: Enduring Factors: absence of significant social support, history of substance abuse, chronic mentalhealth problems, history of previous suicide attempts, limited coping skills, poor emotional regulation, impulsive or aggressive tendencies and history of trauma ?? Dynamic Factors: depressive symptoms ?? Protective Factors: engaged in medical and/or mental health care and future orientation ?? Access to Firearms: No Current Medications: Scheduled: ??? loratadine 10 mg Oral Daily ??? lisinopriL 5 mg Oral BID ??? miconazole 1 applicator Vaginal Nightly ??? prazosin 1 mg Oral TID ??? nicotine 1 patch Transdermal Daily And ??? Patch Verification 1 patch Transdermal BID And ??? nicotine 1 patch Transdermal Daily ??? lidocaine 1 patch Transdermal Q24H ??? sucralfate 1 g Oral TID AC PRN: [START ON 05/25/2020] diazePAM, diazePAM, calcium carbonate, albuteroL, melatonin, nicotine polacrilex, acetaminophen, polyethylene glycoL, ipratropium- albuteroL, lidocaine AND lidocaine, ondansetron, oxymetazoline, hydrOXYzine Labs: Last 24 Hours: No results found for this or any previous visit (from the past 24 hour(s)). Psychiatry Labs: Preg: No results found for: HCGQUAL, HCGQUANT Heme: No results found for: WBC, HGB, HCT, PLATELET, MCV, NEUTROABS No results found for: HA1C, SEDRATE Chem: No results found for: NA, K, CL, CO2, BUN, GLUCOSE, GLUCFASTING No results found for: CALCIUM, MAGNESIUM, PHOS LFTs: Lab Results Component Value Date ALT 13 05/20/2020 AST 13 05/20/2020 ALKPHOS 79 05/20/2020 BILITOT 0.5 05/20/2020 Coags: No results found for: PTT, PT, INR Thyroid: Lab Results Component Value Date TSH 1.16 05/20/2020 Lipids and HgbA1C: No results found for: CHLPL, HDL, CHOLHDL, LDLCHOL, LDLDIRECT, TRIG No results found for: HA1C Vit Lvls: No results found for: [id number], SFOLATE UA: No results found for: GLUCOSEU, KETONESUA, PROTEINUADIP, BLOODUADIP, LEUKOESTERUA, NITRATEUA, WBCUA (May not represent most recent UA results. See eD-H labs for more details.) Tox: No results found for: ETHANOL, ACTMNPHEN, SALICYLATE, LEAD No results found for: UDAUSCREEN Rx Lvls: No results found for: LITHIUM, CARBAMAZEPIN, VALPROATE, LAMOTRIGINE, CLOZAPINE Assessment: Jose Juan Lundy is a 34 y.o. female admitted on 05/22/2020 for increased anxiety, various somatic symptoms, and suicidal ideation. She states that her physical symptoms (numbness and tingling, palpitations, chest pressure, cough) exacerbate her anxiety to the point at which she considers suicide. She does have several co-morbid medical conditions including GERD, asthma, and HTN for which she takes medications and which may be contributing to her physical symptoms. She is also currently prescribed 5mg diazepam qid prn which may also be contributing to physical symptoms (dizziness, hypotension).Although she acknowledges contemplating suicide due to anxiety, she currently has no plan in place to act on these thoughts. 05/24/2020: The patient continues to c/o nonspecific somatic concerns and anxiety centered around these symptoms. Based on conversations with her providers yesterday, we will not work up her symptoms at this time, but we will encourage the patient to taper the valium as this is likely a contributing factor to her memory complaints, and we will continue to encourage the patient to follow-up regularly with her PCP. We reduced her diazepam 5mg dosing from qid to bid yesterday as the patient has beenstable on two of her PRN valium doses per day. Tonight we will further decrease her nighttime dose to 2mg and supplement with hydroxyzine 50mg. Plan is for discharge tomorrow. Current Working Primary Diagnosis: ALIRIO, BPD, PTSD, somatic symptom disorder Plan: # Anxiety ?? Patient open to starting an SSRI (e.g. fluoxetine) in a low dose (1mg) liquid form and increasing the dose over time to minimize potential for side effects. 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 ?? Taper down dose of diazepam as tolerated. Current dose 5mg qAM + 2mg QHS ?? Hydroxyzine 50mg PRN # BPD/PTSD ?? Continue CBT with Dudley Botello as an outpatient ?? Encourage patient to commit to appointments # GERD ?? Sucralfate 1g tid before meals ?? Tums ?? Ondansetron 4mg tid PRN # Asthma/allergies ?? Albuterol & duonebs inhalers PRN ?? Claritin 10mg qd ?? Afrin nasal spray # HTN ?? Lisinopril 5mg bid ?? Prazosin 1mg TID # Lower Back Pain ?? 700mg/24h Lidocaine patch # Tobacco Use ?? 14mg/24hr nicotine patch ?? Nicorette gum # Supportive Care ?? Activity Level: as tolerated # Disposition: -Patient expected to return home with mental health follow-up. . Signed By: Bhargavi Boyle MD 05/24/2020 Associated attestation - Charline Gonzalez MD - 05/24/2020 1:44 PM EDT I have seen the patient and reviewed the resident's above history and I agree with the details as written. The assessment and plan were formulated in discussion with me and I agree with them as documented. Major issues addressed: Pt reports that she feels crappy and describes similar sensations as yesterday. Decides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 hospitalizations related to this. Dawn safer in the hospitals. Has not tried many medications because she is afraid of side effects. Does not connect well with therapists, per her report. Pt is worried that she will take her own life if she continues to feel like this. BP 141/81 (BP Location (NBP): Left arm, Patient Position: Sitting) Pulse 75 Temp 36.7 ??C (98.1??F) (Oral) Resp 17 Ht 167.6 cm (5' 6) Wt 70.8 kg (156 lb) LMP 05/21/2020 SpO2 99% BMI25.18 kg/m?? Plan: Anxiety disorder, unspecified; Conversion Disorder, with mixed symptoms, persistent Resistant to starting new medications because of side effects but appears pre- contemplative about starting liquid SSRI at a low dose. Will revisit today. Would encourage a taper of diazepam as this may also be contributing to symptoms. Anticipate discharge on 05/25/20 I certify that the patient requires: [X] inpatient care for psychiatric treatment, that could be reasonably expected to improve the patient's condition and/or diagnostic study. documented in this encounter Miscellaneous Notes * Plan of Care - Ana Yadav RN - 05/24/2020 9:53 PM EDT Problem: Patient Care Overview Goal: Plan of Care Review Outcome: Ongoing (Interventions Implemented as Appropriate) 05/24/20 7441 Coping/Psychosocial Plan Of Care Reviewed With patient Plan of Care Review Progress progress toward functional goals is gradual OUTCOME EVALUATION NOTE: OUTCOME SUMMARY: Jose Juan endorsed 7/10 anxiety and 8/10 depression. Denied SI/SH/HI and contracted for safety, agreeing to seek staff support if feeling unsafe. Denied AVH. Endorsed 7/10 back pain. Difficult to engage with irritable affect. Minimally visible in the milieu, made and received multiple phone calls, int eracted appropriately with staff and peers. Patient c/o tingling to face. Patient denied new foods or meds. Several people said it might be because of anxiety, but that's never happened before, so Idon't know. When this television script writer asked patient how her day was she replied, Shitty. Patient tearful after one phone call and overheard yelling in her room while on the phone at 2009. Patient interrupted nursing assessment to answer telephone, then went to her room with telephone. Patient OOB at 2247for VS and HS meds. Patient displayed pleasant affect at this time and was easier to engage. Compliant with medication regimen. 0635 This television script writer woke patient to administer Carafate 1 gm per MD order. Patient said she slept like shit, which she attributed to coughing throughout the night. Patient near tears. She said And now I'm all numb and tingly (in face) and then there's the thing with my esophagus and it's driving mecrazy. Patient encouraged to speak with Treatment Team regarding this. Patient able to swallow capsule with water with minimal difficulty. Patient encouraged to try to get more sleep prior to arrival of breakfast at 0730. [place] Suicide Severity Rating Scale: LOW The following nursing interventions and strategies were implemented to mitigate suicide risk: Full room search conducted, Medication as needed, Scheduled check in with nursing, Therapeutic communication/listening, Positive reinforcement Ongoing safety measures include: Ligature resistant environment of care provided Every 15 minutes safety checks Twice daily environment of care safety sweeps and individual room checks Silverware counted Door to room remains open PLAN MOVING FORWARD: Foster positive and optimal patient outcomes through the following nursing actions and interventions: provide medication education and encourage compliance with medication regimen as ordered by MD; prompt group attendance; encourage use of identified coping skills; monitor mood and behavior; provide therapeutic listening; encourage verbalization of feelings and provide validation; assist in short-term and long-term goal setting; and provide emotional support as needed. INDIVIDUALIZED FALL PREVENTION INTERVENTIONS: Patient-specific fall risk factors per assessment: [current deficits]: None Assistance [level of assistance required for transfers and ambulation]: Independent Supervision [direct monitoring required during toileting and ADLs]: Independent Surveillance [continuous indirect monitoring]: 15 minute safety checks maintained throughout shift Patient-specific fall prevention interventions for sensory deficits provided, if applicable: [X] N/A Fall prevention program maintained, non-slip footwear required when ambulating, muscle strengthening facilitated, bed in low position, lighting adjusted, 15 minute safety checks maintained throughoutthe shift. CPG GOAL OUTCOME EVALUATION: Continue to: provide therapeutic listening, validate feelings, promote self- care, encourage active participation in treatment through group attendance, offer emotional support, encourage self-advocacy, promote self-efficacy, assist patient in the development of a viable crisis/safety plan they can implement when feeling unsafe, provide medication education and encourage compliance with medicationregimen as ordered by MD. Goal: Individualization & Mutuality Outcome: Ongoing (Interventions Implemented as Appropriate) 05/24/202144 Mutuality/Individual Preferences What Anxieties, Fears or Concerns Do You Have About Your Health or Care? Anxious about tingling to face; no recent new foods or meds What Questions Do You Have About Your Health or Care? None What Information Would Help Us Give You More Personalized Care? Patient's day was shitty. Individualization Patient Specific Preferences Multiple phone calls Patient Specific Goals Safety and stabilization Patient Specific Interventions Provide therapeutic listening, validate feelings, offer emotional support, provide medication education, encourage compliance with medication regimen as ordered by MD, encourage involvement in treatment through group attendance and participation, assist in the identification of stressors, assist in the development of a viable Safety/Crisis plan, encourage self-advocacy and self-efficacy. Goal: Fall Prevention-Safe Patient Handling Outcome: Ongoing (Interventions Implemented as Appropriate) 05/23/20 2030 05/24/20 1000 05/24/202129 Restraint Interventions Safety Promotion/Fall Prevention -- -- fall prevention program maintained;muscle strengthening facilitated;nonskid shoes/slippers when out of bed;safety round/check completed Activity Activity Type up ad jorge alberto -- -- Activity Assistance Provided independent -- -- Assistive Device Utilized none -- -- Positioning Body Position independent -- -- Daily Care Interventions Self-Care Promotion independence encouraged -- -- Chow Fall Risk History of Falling -- 0 -- Secondary Diagnosis -- 15 -- Ambulatory Aids -- 0 -- Intravenous Therapy/Heparin/Saline Lock -- 0 -- Gait/Transferring -- 0 -- Mental Status -- 0 -- Score -- 15 -- OTHER Chow Fall Risk -- Low -- Goal: Infection Control Outcome: Ongoing (Interventions Implemented as Appropriate) 05/24/20212905/24/202144 Coping Strategies Supportive Measures -- active listening utilized;relaxation techniques promoted;self-care encouraged;self-reflection promoted;self-responsibility promoted;verbalization of feelings encouraged Safety Interventions Isolation Precautions standard precautions maintained -- Infection Prevention environmental surveillance performed;equipment surfaces disinfected;personal protective equipment utilized;rest/sleep promoted;single patient room provided;visitors restricted/screened -- Goal: Discharge Needs Assessment Outcome: Ongoing (Interventions Implemented as Appropriate) 05/22/20230905/23/202249 Discharge Needs Assessment Concerns To Be Addressed -- coping/stress concerns;compliance issue concerns;decision making concerns;mental health concerns Readmission Within The Last 30 Days no previous admission in last 30 days -- Provider Choice List(s) Given no -- Equipment Needed After Discharge none -- Current Discharge Risk -- psychiatric illness Discharge Disposition still a patient -- Current Health Outpatient/Agency/Support Group Needs outpatient psychiatric care (specify) -- Anticipated Changes Related to Illness none -- Activity/Self Care Review of Systems Equipment Currently Used at Home none -- Living Environment Transportation Available -- car Goal: Interdisciplinary Rounds/Family Conf Outcome: Ongoing (Interventions Implemented as Appropriate) 05/24/202144 Interdisciplinary Rounds/Family Conf Participants nursing;patient Problem: Anxiety (Adult) Intervention: Promote Anxiety Reduction/Resolution 05/24/202144 Coping Strategies Supportive Measures active listening utilized;relaxation techniques promoted;self-care encouraged;self-reflection promoted;self-responsibility promoted;verbalization of feelings encouraged Family/Support System Care self-care encouraged;support provided Coping/Psychosocial Interventions Environmental Support calm environment promoted;caregiver consistency promoted;distractions minimized;environmental consistency promoted;personal routine supported;rest periods encouraged Cognitive Interventions Sensory Stimulation Regulation auditory stimulation minimized;care clustered;lighting decreased;music/television provided for relaxation;quiet environment promoted;visual stimulation minimized Goal: Identify Related Risk Factors and Signs and Symptoms Related risk factors and signs and symptoms are identified upon initiation of Human Response Clinical Practice Guideline (CPG) Outcome: Ongoing (Interventions Implemented as Appropriate) 05/23/20 2249 Anxiety Related Risk Factors (Anxiety) coping ineffective;loss of control Signs and Symptoms (Anxiety) apprehension/being worried;nervousness/tension/restlessness;physical co mplaints/symptoms;uncertainty/wariness/doubt Goal: Reduction/Resolution Patient will demonstrate the desired outcomes by discharge/transition of care. Outcome: Ongoing (Interventions Implemented as Appropriate) 05/24/20 2145 Anxiety (Adult) Reduction/Resolution making progress toward outcome * Plan of Care - Vane Pozo - 05/24/2020 11:11 AM EDT Problem: Patient Care Overview Goal: Plan of Care Review 05/24/20 1102 Coping/Psychosocial Plan Of Care Reviewed With patient Plan of Care Review Progress progress towards functional goals is fair OUTCOME EVALUATION NOTE: OUTCOME SUMMARY: Per RN report patient slept 8.25 hours Patient visible in the milieu early this morning, complaining of increased anxiety 6 (prn valiumgiven). Patient well groomed, eating adequately (ate breakfast in her room), has been on the phone intermittently in her room this morning . Patient medication compliant (picotine patch left upper back/shoulder), calm and cooperative with nursing care. Patient denies depression, endorses feeling down today. patient denies si/hi and avh. PAtient reported to [facility] her anxiety had increased and stated she doesn't feel well, patient [id number] processing group, stayed in bed (bedroom door left open to monitor patient). Patient has full range affect, Patient attended 1315 group, and workshop Patient requested miralax, declined prazosin - concerned BP too low Patient continues to verbalize numbness and tingling throughout body [place] Suicide Severity Rating Scale: LOW The following nursing interventions and strategies were implemented to mitigate suicide risk: Patient sitting visible from nursing station, Medication as needed, Distract with activities, Groups for skill building, Therapeutic communication/listening, Positive reinforcement Ongoing safety measures include: Ligature resistant environment of care provided Every 15 minutes safety checks Twice daily environment of care safety sweeps and individual room checks Silverware counted Door to room remains open PLAN MOVING FORWARD: Increased coping skills, medication stabilization INDIVIDUALIZED FALL PREVENTION INTERVENTIONS Patient-specific fall risk factors per assessment: [current deficits]: low Assistance [level of assistance required for transfers and ambulation]: na Supervision [direct monitoring required during toileting and ADLs]: na Surveillance [continuous indirect monitoring]: q 15 minutes Patient-specific fall prevention interventions for sensory deficits provided, if applicable: na CPG GOAL OUTCOME EVALUATION: Goal: Individualization & Mutuality 05/22/200 05/23/20225105/24/20 110 Mutuality/Individual Preferences What Anxieties, Fears or Concerns Do You Have About Your Health or Care? r/t not getting Nicotine patch at night -- -- What Questions Do You Have About Your Health or Care? -- Can I have some Zofran for nausea? -- What Information Would Help Us Give You More Personalized Care? none -- -- Individualization Patient Specific Interventions -- -- anxiety prns Goal: Fall Prevention-Safe Patient Handling 05/23/20 2030 05/24/20 1000 Restraint Interventions Safety Promotion/Fall Prevention -- fall prevention program maintained Activity Activity Type up ad jorge alberto -- Activity Assistance Provided independent -- Assistive Device Utilized none -- Positioning Body Position independent -- Daily Care Interventions Self-Care Promotion independence encouraged -- Chow Fall Risk History of Falling -- 0 Secondary Diagnosis -- 15 Ambulatory Aids -- 0 Intravenous Therapy/Heparin/Saline Lock -- 0 Gait/Transferring -- 0 Mental Status -- 0 Score -- 15 OTHER Chow Fall Risk -- Low Goal: Infection Control 05/24/20 110 Coping Strategies Supportive Measures active listening utilized;counseling provided;decision- making supported;problemsolving facilitated;positive reinforcement provided;goal setting facilitated;relaxation techniques promoted;self-responsibility promoted;verbalization of feelings encouraged;self-care encouraged;self- reflection promoted Safety Interventions Isolation Precautions standard precautions maintained Infection Prevention environmental surveillance performed;equipment surfaces disinfected;single patient room provided Goal: Interdisciplinary Rounds/Family Conf 05/24/20 110 Interdisciplinary Rounds/Family Conf Participants high risk case manager;nursing;patient;physician Problem: Anxiety (Adult) Intervention: Promote Anxiety Reduction/Resolution 05/24/20 1102 Coping Strategies Complementary Therapy art therapy Supportive Measures active listening utilized;counseling provided;decision- making supported;problemsolving facilitated;positive reinforcement provided;goal setting facilitated;relaxation techniques promoted;self-responsibility promoted;verbalization of feelings encouraged;self-care encouraged;self- reflection promoted Coping/Psychosocial Interventions Environmental Support calm environment promoted;personal routine supported;environmental consistency promoted Cognitive Interventions Sensory Stimulation Regulation auditory stimulation minimized;quiet environment promoted;tactile stimulation minimized Goal: Identify Related Risk Factors and Signs and Symptoms Related risk factors and signs and symptoms are identified upon initiation of Human Response Clinical Practice Guideline (CPG) 05/23/20 2249 Anxiety Related Risk Factors (Anxiety) coping ineffective;loss of control Signs and Symptoms (Anxiety) apprehension/being worried;nervousness/tension/restlessness;physical co mplaints/symptoms;uncertainty/wariness/doubt Goal: Reduction/Resolution Patient will demonstrate the desired outcomes by discharge/transition of care. 05/24/20 1102 Anxiety (Adult) Reduction/Resolution making progress toward outcome * Plan of Care - Sunni Drummond RN - 05/23/2020 11:04 PM EDT Problem: Patient Care Overview Goal: Plan of Care Review Outcome: Ongoing (Interventions Implemented as Appropriate) 05/23/20 527 Coping/Psychosocial Plan Of Care Reviewed With patient Plan of Care Review Progress progress towards functional goals is fair Patient has blunted affect, making various somatic complaints. Stating her whole body feels numb, has generalized back pain 8/10 & joint pain 6/10. Validated patient's feelings that these physical symptoms must be frustrating for her. Vitals were obtained & at first she didn't want lisinopril because she thought her BP would be lowered too much (was 149/73), informed her that the BP medica tion would help to decrease her BP to a more suitable number. She eventually was compliant w/ HS meds including the lisinopril. Given scheduled miconazole cream which was administered intravaginally by pt. Nicotine patch verified on R upper back. Old self-harm cuts present over pt's inner arms, superficial. She endorses vaginal itching. Rates anxiety 4/10 & depression 7/10. Denies SI & self-harm thoughts, agrees to contact staff if this changes. Given PRN Zofran for nausea, no emesis present. She ate cereal & pudding for snacks this evening, talked w/ boyfriend & son on phone. [place] Suicide Severity Rating Scale: LOW The following nursing interventions and strategies were implemented to mitigate suicide risk: Full room search conducted, Identify protective factors, Groups for skill building, Therapeutic communication/listening Ongoing safety measures include: Ligature resistant environment of care provided Every 15 minutes safety checks Twice daily environment of care safety sweeps and individual room checks Silverware counted Door to room remains open * Plan of Care - Johanne Segal RN - 05/23/2020 9:41 AM EDT Problem: Patient Care Overview Goal: Plan of Care Review Outcome: Ongoing (Interventions Implemented as Appropriate) 05/22/20 2310 Coping/Psychosocial Plan Of Care Reviewed With patient Plan of Care Review Progress progress toward functional goals as expected OUTCOME EVALUATION NOTE: OUTCOME SUMMARY: Pt very anxious and irritable this am. She reports a feeling of doom like something bad is going tohappen, and SOB. PO WNL. Pt requested Valium anfd Tylenol for anxiety and back pain of 03/29 in addition to standing am medication. Jose Juan rates depression and anxiety as 7's and denies SI and paranoia. She does report AH and felt there was a person in her bathroom last PM. Unit orientation complete. [place] Suicide Severity Rating Scale: LOW The following nursing interventions and strategies were implemented to mitigate suicide risk: Prompted deep breathing / relaxation techniques, Distract with activities, Groups for skill building, Assist patient in developing a safe discharge plan, Therapeutic communication/listening, Positivereinforcement Ongoing safety measures include: Ligature resistant environment of care provided Every 15 minutes safety checks Twice daily environment of care safety sweeps and individual room checks Silverware counted Door to room remains open [place] Suicide Severity Rating Scale: LOW The following nursing interventions and strategies were implemented to mitigate suicide risk: Prompted deep breathing / relaxation techniques, Distract with activities, Groups for skill building, Reviewed Values with patient, Scheduled check in with nursing, Therapeutic communication/listening Ongoing safety measures include: Ligature resistant environment of care provided Every 15 minutes safety checks Twice daily environment of care safety sweeps and individual room checks Silverware counted Door to room remains open PLAN MOVING FORWARD: meds as ordered, group therapy, discharge planning INDIVIDUALIZED FALL PREVENTION INTERVENTIONS: Patient-specific fall risk factors per assessment: [current deficits]: none Assistance [level of assistance required for transfers and ambulation]: independent Supervision [direct monitoring required during toileting and ADLs]: Esc to group Surveillance [continuous indirect monitoring]: q 15 minute checks Patient-specific fall prevention interventions for sensory deficits provided, if applicable: [X] No CPG GOAL OUTCOME EVALUATION: Pt irritable this am. * Initial Assessments - Romana Davis RN - 05/23/2020 8:03 AM EDT Initial Patient Assessment ROMANA DAVIS RN reviewed record and discussed patient with Care Team on 05/23/2020. Introduced/reviewed role; services accepted. Jose Juan Lundy is a 34 y.o. year old female (1985) presenting to [address] [place] [address] for treatment with Anxiety disorder, unspecified [F41.9] Anticipated Length Of Stay (If known): unknown Patient/Caregiver Goals of Treatment: Safety and stabilization, Treatment for anxiety and physical symptoms Source of Information: Pt supplied/corraborated, history and physical REASON for HOSPITALIZATION: worsening anxiety with self harm impulses Medical/Behavioral Health History: does not have any pertinent problems on file. Current treaters: Current Mental Health Prescriber: None Current Therapist: Tashi condon [facility], sees him for acupuncture and counseling PCP: Lakhwinder Rust MD Hospitalizations Within the Past 30 Days: none known PERTINENT INFO FROM H & P: 34 y.o. Female with PPHx MDD, ALIRIO presents to [facility] [place] with anxiety, diverse physical symptoms, and suicidal ideation. ADVANCE DIRECTIVES: Information provided as needed HEALTH /PRESCRIPTION COVERAGE: Current Effective Coverage: Payor/Plan Subscr Sex Relation Sub. Ins. ID Effective Group Num 1. MEDICAID [place] -* JOSE JUAN LUNDY 1985 Female [id number] 09/02/15 [address] 2. MEDICAID [place] -* JOSE JUAN LUNDY 1985 Female Self [id number] 01/03/20 [address] Prescription Coverage: Confirmed Preferred Pharmacy: [facility] [address] [place] [address] [place] [address] [place] [address] [address] HOME ENVIRONMENT / SOCIAL & FAMILY SUPPORTS/COMMUNITY RESOURCES:(living situation, family constellation, Caregivers, current use & knowledge of community resources, etc.) Extended Emergency Contact Information Primary Emergency Contact: [facility] Relation: Child Secondary Emergency Contact: Eshan Stapleton Relation: Sibling PRIMARY CARE PHYSICIAN: 1. Lakhwinder Rust MD [address] / [place] [address] MENTAL HEALTH PRESCRIBER: None currently, PCP Current Decision-Making Capacity: (Level of Alertness/Orientation, dementia/ cognitive deficit, if patient is a minor - assess parent/guardian, etc.) Able to consent to or refuse care. CURRENT PATIENT & FAMILY EDUCATION, COPING NEEDS: (Address patient/family satisfaction with care to date, understanding of current status and plan of care, need for family meeting, need for park interpreter, etc.) Education regarding effective coping skills, medication and treatment options, relapseprevention and community supports Functional Status Prior to Admission: Able to perform ADLs/IADLs independently Current Functional Ability: (use of assistive devices, working with PT/OT, etc.) Able to perform ADLs/IADLs independently Anticipated Barriers to Discharge/Special Considerations: (Financial/underinsured, behavioral, lackof needed support/access to community resources, current substance abuse, homelessness, etc.) None anticipated Potential Needs for Transition of Care: Home Health: no Any special transportation needed at D/C to [address] [facility] [id number]? None anticipated Rehab/SNF: no New community resources referrals needed? Refer to outpatient mental health supports Other: PLAN: PCM will continue to monitor progress, follow for continuity of care and assist with transition of care planning while hospitalized. ROMANA DAVIS RN, BSN PAGER: [phone] * Plan of Care - Romana Davis RN - 05/23/2020 8:03 AM EDT MULTIDISCIPLINARY TREATMENT PLAN Todays Date: 05/23/2020 Patient: Jose Juan Lundy Admit Date: 05/22/2020 1:12 PM CODE STATUS:Attempt Cardiopulmonary Resuscitation - Inpatient Initial date of care plan. __05/23/20_ Update Q7 days Working Diagnosis: Anxiety disorder, unspecified [F41.9] PATIENT'S REASON FOR HOSPITALIZATION Worsening mood and physical symptoms with self-harming impulses STRENGTHS STRESSORS TARGET SYMPTOMS 1. Open to engaging in treatment Increased physical symptoms Anxiety, panic attacks, nightmares 2. Parenting young children Depressive symptoms, hopelessness 3. Self-harming impulses GOALS 1 Stabilize target symptoms and improve understanding of illness 2 Work with Patient Child Nutrition Assistant to create and implement aftercare plan 3 Medication optimization 4 Groups for education, skill building and support 5 Complete wellness and recovery plan prior to discharge PHYSICIAN INTERVENTIONS ACTIVITY INTERVENTIONS 1. Continued psychiatric evaluation 1. Therapeutic groups & activities 2. Med management/Brief therapy 2. Patient and family education 3. Diagnostic/Medical testing/Labs 3. NURSING INTERVENTIONS PCC & SW INTERVENTIONS 1. Purposeful rounding 1. Facilitate communication with family 2. Nursing care plan 2. Facilitate communication with providers 3. 3. Assist with discharge planning The multidisciplinary team reviewed falls prevention plan with me. I have worked with my treatment team and agree with the plan above. PATIENT SIGNATURE DATE: Jose Juan Lundy PRINT NAME: SIGNATURE: DATE: RESIDENT PHYSICIAN 05/23/20 ATTENDING PHYSICIAN Charline Gonzalez MD 05/23/20 NURSING 05/23/20 PATIENT MARKETING OPERATIONS ANALYST Romana Davis RN 05/23/20 THERAPIST 05/23/20 BEHAVIORAL HEALTH PROFESSIONAL 05/23/20 * Plan of Care - Sveta Alexandra RN - 05/22/2020 11:25 PM EDT Problem: Patient Care Overview Goal: Plan of Care Review 05/22/202309 Coping/Psychosocial Plan Of Care Reviewed With patient Plan of Care Review Progress progress toward functional goals as expected OUTCOME EVALUATION NOTE: OUTCOME SUMMARY: See progress notes. Addendum: Pt appeared calmer and more receptive after talking with the MD who reiterated why we arenot giving her Nicotine patch at night. He wrote order for Atarax for anxiety which she received [id number]. Pt apologized for her behavior earlier. She requested for an order for Monistat, DOC was paged regarding pt's request. Pt is asked again about safety and she denied SI/HI or A/VH. She promises to let staff know if she has any suicidal or self-harm thoughts and cannot maintain her safety. [place] Suicide Severity Rating Scale: LOW The following nursing interventions and strategies were implemented to mitigate suicide risk: Identify protective factors, Reviewed Values with patient Ongoing safety measures include: Ligature resistant environment of care provided Every 15 minutes safety checks Twice daily environment of care safety sweeps and individual room checks Silverware counted Door to room remains open PLAN MOVING FORWARD: Med management and compliance, monitor mood and behavior, safety and stabilization, group and milieu therapy INDIVIDUALIZED FALL PREVENTION INTERVENTIONS: Patient-specific fall risk factors per assessment: [current deficits]: Low fall risk Assistance [level of assistance required for transfers and ambulation]: independent Supervision [direct monitoring required during toileting and ADLs]: independent Surveillance [continuous indirect monitoring]: q 15 checks, purposeful rounding, environmental sweep, low ligature risk environment Patient-specific fall prevention interventions for sensory deficits provided, if applicable: N/A CPG GOAL OUTCOME EVALUATION: Goal: Individualization & Mutuality 05/22/202309 Mutuality/Individual Preferences What Anxieties, Fears or Concerns Do You Have About Your Health or Care? r/t not getting Nicotine patch at night What Questions Do You Have About Your Health or Care? Why can't I have the Nicotine patch at night? What Information Would Help Us Give You More Personalized Care? none Goal: Fall Prevention-Safe Patient Handling 05/22/20225105/22/202309 Restraint Interventions Safety Promotion/Fall Prevention -- fall prevention program maintained;nonskid shoes/slippers when out of bed;safety round/check completed Activity Activity Type -- up ad jorge alberto Activity Assistance Provided -- independent Assistive Device Utilized -- none Positioning Body Position -- independent Daily Care Interventions Self-Care Promotion -- independence encouraged Chow Fall Risk History of Falling 0 -- Secondary Diagnosis 15 -- Ambulatory Aids 0 -- Intravenous Therapy/Heparin/Saline Lock 0 -- Gait/Transferring 0 -- Mental Status 0 -- Score 15 -- OTHER Chow Fall Risk Low -- Goal: Infection Control 05/22/202309 Coping Strategies Supportive Measures active listening utilized;counseling provided;relaxation techniques promoted;self-care encouraged;self-responsibility promoted;self- reflection promoted;verbalization of feelings encouraged Safety Interventions Isolation Precautions standard precautions maintained Infection Prevention environmental surveillance performed;rest/sleep promoted Goal: Discharge Needs Assessment 05/22/202309 Discharge Needs Assessment Concerns To Be Addressed mental health concerns;coping/stress concerns Readmission Within The Last 30 Days no previous admission in last 30 days Provider Choice List(s) Given no Equipment Needed After Discharge none Current Discharge Risk psychiatric illness Discharge Disposition still a patient Current Health Outpatient/Agency/Support Group Needs outpatient psychiatric care (specify) Anticipated Changes Related to Illness none Activity/Self Care Review of Systems Equipment Currently Used at Home none Living Environment Transportation Available car Goal: Interdisciplinary Rounds/Family Conf 05/22/202309 Interdisciplinary Rounds/Family Conf Participants nursing;patient Problem: Anxiety (Adult) Intervention: Promote Anxiety Reduction/Resolution 05/22/202309 Coping Strategies Supportive Measures active listening utilized;counseling provided;relaxation techniques promoted;self-care encouraged;self-responsibility promoted;self- reflection promoted;verbalization of feelings encouraged Family/Support System Care self-care encouraged Coping/Psychosocial Interventions Environmental Support calm environment promoted;rest periods encouraged Goal: Identify Related Risk Factors and Signs and Symptoms Related risk factors and signs and symptoms are identified upon initiation of Human Response Clinical Practice Guideline (CPG) 05/22/202309 Anxiety Related Risk Factors (Anxiety) coping ineffective;psychosocial factor Signs and Symptoms (Anxiety) physical complaints/symptoms Goal: Reduction/Resolution Patient will demonstrate the desired outcomes by discharge/transition of care. 08/03/20 2310 Anxiety (Adult) Reduction/Resolution making progress toward outcome * Plan of Care - Elicia Cole RN - 05/22/2020 4:13 PM EDT Problem: Patient Care Overview Goal: Plan of Care Review Outcome: Ongoing (Interventions Implemented as Appropriate) 05/22/20 4019 Coping/Psychosocial Plan Of Care Reviewed With patient Plan of Care Review Progress progress toward functional goals as expected Patient discussed reason for admission, she states that she has increased anxiety and experiencing somatic symptoms of diffused numbness, tingling and dizziness. States that she has thoughts of SI but no active intent. She states that she has had thoughts of driving car into something, but her protective factor of hurting someone else or not dying stops her from following through with plan. Patient is cooperative, anxious and tearful at times. Patient states that she has GERD and that her ears feel full reports she has had problems with fluid in her ears. Skin exam completed no open wounds. Patient states that she has past history of cutting and that she cuts to release her pain. When asked to rate depression she states that she does not like to say she has depressed, anxiety is a8/10 pain 6/7 in lower back, denies SI/HI, AVH. Patient contracts to safety. [place] Suicide Severity Rating Scale: LOW The following nursing interventions and strategies were implemented to mitigate suicide risk: Medication as needed, Distract with activities, Groups for skill building, Reviewed Values with patient, Scheduled check in with nursing, Therapeutic communication/listening, Positive reinforcement Ongoing safety measures include: Ligature resistant environment of care provided Every 15 minutes safety checks Twice daily environment of care safety sweeps and individual room checks Silverware counted Door to room remains open * Plan of Care - Elicia Cole RN - 05/22/2020 2:56 PM EDT Problem: Anxiety (Adult) Intervention: Promote Anxiety Reduction/Resolution 05/22/20 1304 Coping Strategies Complementary Therapy art therapy Supportive Measures active listening utilized;positive reinforcement provided;problem solving facilitated;self-care encouraged;verbalization of feelings encouraged;self-responsibility promoted;self-reflection promoted;relaxation techniques promoted;journaling promoted;goal setting facilitated;counseling provided;decision-making supported Family/Support System Care self-care encouraged Coping/Psychosocial Interventions Environmental Support calm environment promoted;environmental consistency promoted;personal routinesupported;rest periods encouraged Cognitive Interventions Sensory Stimulation Regulation quiet environment promoted documented in this encounter Plan of Treatment Upcoming Encounters Date Type Department Care Team (Late st Contact Info) Description 09/21/2024 8:15 AM EST Routine Obstetrics [place] [address] Emili Cabrera MD [facility] [place] [place] [address] 09/26/2024 6:00 PM EST Appointment [facility] [place] [address] 10/16/2024 [facility] [place] [address] Dudley Aguilar MD [facility] [address] OBSTETRICS [place] [address] 11/08/2024 10:00 AM EST Hospital Encounter [place] [address] Arrived documented as of this encounter Visit Diagnoses Diagnosis Anxiety disorder, unspecified- Primary Borderline personality disorder Post-traumatic stress disorder, chronic documented in this encounter Admitting Diagnoses Diagnosis Anxiety disorder, unspecified documented in this encounter Administered Medications Inactive Administered Medications - up to 3 most recent administrations Medication Order MAR Action Action Date Dose Rate Site acetaminophen (Tylenol) tablet 650 mg 650 mg, Oral, EVERY 6 HOURS PRN, Starting on 05/22/20 at 1640, Until Jenelle 05/25/20 at 1711, Pain, Administer for pain (Not to exceed 4000 mg per 24 hours), Routine Given 05/24/2020 10:52 PM EDT 650 mg Given 05/24/2020 7:33 AM EDT 650 mg Given 05/23/2020 9:02 AM EDT 650 mg calcium carbonate (Tums) chewable tablet 1,000 mg 1,000 mg, Oral, EVERY 6 HOURS PRN, Starting on Fri05/24/20 at 1833, Until Fri05/25/20 at 1711, Heartburn, Routine Given 05/25/2020 9:35 AM EDT 1,000 mg Given 05/24/2020 10:51 PM EDT 1,000 mg calcium carbonate (Tums) chewable tablet 500 mg 500 mg, Oral, EVERY 6 HOURS PRN, Starting on Fri05/23/20 at 1718, Until Fri05/24/20 at 1833, Heartburn, Routine Given 05/24/2020 4:03 PM EDT 500 mg diazePAM (Valium) tablet 2 mg 2 mg, Oral, NIGHTLY PRN, Starting on Fri05/24/20 at 1023, Until Fri05/25/20 at 1711, Anxiety, Routine Given 05/25/2020 2:44 PM EDT 2 mg diazePAM (Valium) tablet 5 mg 5 mg, Oral, EVERY 6 HOURS PRN, Starting on Fri05/22/20 at 1725, Until Fri05/23/20 at 1723, Anxiety, Routine Given 05/23/2020 9:10 AM EDT 5 mg Given 05/22/2020 5:46 PM EDT 5 mg diazePAM (Valium) tablet 5 mg 5 mg, Oral, EVERY 12 HOURS PRN, Starting on Fri05/23/20 at 2100, Until Fri05/24/20 at 1033, Anxiety, Routine Given 05/24/2020 7:33 AM EDT 5 mg diazePAM (Valium) tablet 5 mg 5 mg, Oral, DAILY PRN, Starting on Fri05/25/20 at 0000, Until Fri05/25/20 at 1711, Anxiety, Routine Given 05/25/2020 9:39 AM EDT 5 mg hydrOXYzine (Atarax) tablet 25 mg 25 mg, Oral, 3 TIMES DAILY PRN, Starting on Fri05/22/20 at 2236, Until Fri05/25/20 at 1711, Itching, Routine Given 05/22/2020 10:50 PM EDT 25 mg lidocaine (LIDODERM) 5 % patch 1 patch 1 patch, Transdermal, NIGHTLY PRN, Starting on Fri05/22/20 at 2100, Until Fri05/25/20 at 1711, Pain, Apply patch(es) for 12 hours, and then remove for 12 hours, Routine Patch Applied 05/24/2020 10:51 PM EDT 1 patch 07- Back Lower (Left) Patch Applied 05/22/2020 10:29 PM EDT 1 patch 20-Other (document in comment section) lidocaine (LIDODERM) 5 %(700 mg/patch) Patch Removal Transdermal, EVERY 24 HOURS, First dose on Fri05/23/20 at 0900, Until Discontinued, Remove lidocaine 5 %(700 mg/patch) patch lisinopriL (Prinivil;Zestril) tablet 10 mg 10 mg, Oral, DAILY, First dose on Fri05/23/20 at 0900, Until Discontinued, Routine Given 05/23/2020 9:11 AM EDT 5 mg lisinopriL (Prinivil;Zestril) tablet 5 mg 5 mg, Oral, 2 TIMES DAILY, First dose (after last modification) on Fri05/23/20 at 2100, Until Discontinued, Routine Given 05/25/2020 9:27 AM EDT 5 mg Given 05/24/2020 10:52 PM EDT 5 mg Given 05/24/2020 8:47 AM EDT 5 mg loratadine (Claritin) tablet 10 mg 10 mg, Oral, DAILY, First dose (after last modification) on Fri05/24/20 at 0900, Until Discontinued, Routine Given 05/25/2020 9:27 AM EDT 10 mg Given 05/24/2020 8:47 AM EDT 10 mg loratadine (Claritin) tablet 5 mg 5 mg, Oral, DAILY, First dose on Fri05/23/20 at 0900, Until Discontinued, Routine Given 05/23/2020 9:03 AM EDT 5 mg miconazole (MICOTIN) 2 % vaginal cream 1 applicator 1 applicator, Vaginal, Administer over 7 Days, NIGHTLY, 7 doses, First dose on Fri05/23/20 at 2100, Last dose on Fri05/29/20 at 2100, Please do not discard applicator, Routine Given 05/24/2020 10:52 PM EDT 1 applicator Given 05/23/2020 10:32 PM EDT 1 applicator 20-Other (document in comment section) nicotine (NICODERM CQ) 14 mg/24 hr patch 14 mg 14 mg (1 patch), Transdermal, Administer over 24 Hours, DAILY, First dose on Fri05/22/20 at 1730, Until Discontinued, Routine Given 05/25/2020 9:28 AM EDT 14 mg 06- Back Upper (Righ t) Given 05/24/2020 8:47 AM EDT 14 mg 05 - Back Upper (Left) Given 05/23/2020 9:01 AM EDT 14 mg 04 - Shoulder (Right) nicotine (NICODERM CQ) 14 mg/24 hr patch Patch Removal Transdermal, DAILY, First dose on Fri05/23/20 at 1630, Until Discontinued, Remove nicotine 14 mg/24 hr patch nicotine (NICODERM CQ) 14 mg/24 hr patch Patch Verification Transdermal, 2 TIMES DAILY, First dose on Fri05/23/20 at 0430, Until Discontinued, Verify nicotine 14 mg/24 hr patch. ondansetron (Zofran) tablet 4 mg 4 mg, Oral, EVERY 8 HOURS PRN, Starting on Fri05/22/20 at 1747, Until Jenelle 05/25/20 at 1711, Nausea, Routine Given 05/25/2020 2:21 PM EDT 4 mg Given 05/23/2020 10:34 PM EDT 4 mg oxymetazoline (AFRIN) 0.05 % nasal spray 2 spray 2 spray, Each Nare, Administer over 3 Days, 2 TIMES DAILY PRN, Starting on Fri05/22/20 at 1807, Until Fri05/25/20 at 1711, Congestion, Detailer recommended duration is 3 days., Routine Given 05/24/2020 7:29 AM EDT 2 sprays polyethylene glycoL (Miralax) packet 17 g 17 g, Oral, DAILY PRN, Starting on Fri05/22/20 at 1640, Until Jenelle 05/25/20 at 1711, Constipation, Administer if needed per patient's routine or if no bowel movement within 48 hours to achieve: 1) One bowel movement at least every 48 hours, AND 2) Without straining. If multiple bowel medications ordered, consider polyethylene glycol(MIRALAX) first., Routine Given 05/25/2020 9:33 AM EDT 17 g Given 05/24/2020 2:14 PM EDT 17 g prazosin (Minipress) capsule 1 mg 1 mg, Oral, 3 TIMES DAILY, First dose on Fri05/22/20 at 1730, Until Discontinued, Routine Given 05/25/2020 9:27 AM EDT 1 mg Given 05/24/2020 10:52 PM EDT 1 mg Given 05/24/2020 8:47 AM EDT 1 mg sucralfate (Carafate) tablet 1 g 1 g, Oral, 3 TIMES DAILY BEFORE MEALS, First dose (after last modification) on Fri05/23/20 at 0730, Until Discontinued, Administer 1 hour before meals. Do not administer meds for 2hrs after taking this medication., Routine Given 05/25/2020 11:56 AM EDT 1 g Given 05/25/2020 6:37 AM EDT 1 g Given 05/24/2020 4:30 PM EDT 1 g documented in this encounter Active and Recently Administered Medications Times are shown in EDT. Scheduled Medication Order 05/23/2020 05/24/2020 05/25/2020 lidocaine (LIDODERM) 5 %(700 mg/patch) Patch Removal(Linked Group 1) Transdermal, EVERY 24 HOURS, First dose on Fri05/23/20 at 0900, Until Discontinued, Remove lidocaine 5 %(700 mg/patch) patch 0900 (Patch Removed - Provider: Johanne Segal RN) 09 (Patch Not Removed (add comment) - Provider: Vane Pozo - Comment: no patch) 926 (Patch Removed - Provider: Mabel Strickland RN) lisinopriL (Prinivil;Zestril) tablet 10 mg (CANCELED) 10 mg, Oral, DAILY, First dose on Fri05/23/20 at 0900, Until Discontinued, Routine 0911 (Given - Provider: Johanne Segal RN) lisinopriL (Prinivil;Zestril) tablet 5 mg 5 mg, Oral, 2 TIMES DAILY, First dose (after last modification) on Fri05/23/20 at 2100, Until Discontinued, Routine 2231 (Given - Provider: Sunni Drummond RN) 0847 (Given - Provider: Vane Pozo)2252 (Given - Provider: Ana Yadav RN) 09 (Given - Provider: Mabel Strickland, RN) loratadine (Claritin) tablet 10 mg 10 mg, Oral, DAILY, First dose (after last modification) on Fri05/24/20 at 0900, Until Discontinued, Routine 0847 (Given - Provider: Vane Pozo) 926 (Given - Provider: Mabel Strickland, RN) loratadine (Claritin) tablet 5 mg (CANCELED) 5 mg, Oral, DAILY, First dose on Fri05/23/20 at 0900, Until Discontinued, Routine 09 (Given - Provider: Johanne Segal RN) miconazole (MICOTIN) 2 % vaginal cream 1 applicator 1 applicator, Vaginal, Administer over 7 Days, NIGHTLY, 7 doses, First dose on Fri05/23/20 at 2100, Last dose on Fri05/29/20 at 2100, Please do not discard applicator, Routine 2231 (Given - Provider: Sunni Drummond RN - Comment: pt wanted later vaginally) 225 (Given - Provider: Ana Yadav RN) nicotine (NICODERM CQ) 14 mg/24 hr patch 14 mg(Linked Group 2) 14 mg (1 patch), Transdermal, Administer over 24 Hours, DAILY, First dose on Fri05/22/20 at 1730, Until Discontinued, Routine 09 (Given - Provider: Johanne Segal RN) 08 (Given - Provider: Vane Pozo) 927 (Given - Provider: Mabel Strickland, SYBIL) nicotine (NICODERM CQ) 14 mg/24 hr patch Patch Removal(Linked Group 2) Transdermal, DAILY, First dose on Fri05/23/20 at 1630, Until Discontinued, Remove nicotine 14 mg/24 hr patch 1630 (Patch Not Removed (add comment) - Provider: Johanne Segal RN) 899 (Patch Removed - Provider: Vane Pozo) 926 (Patch Removed - Provider: Mabel Strickland, SYBIL) nicotine (NICODERM CQ) 14 mg/24 hr patch Patch Verification(Linked Group 2) Transdermal, 2 TIMES DAILY, First dose on Fri05/23/20 at 0430, Until Discontinued, Verify nicotine 14 mg/24 hr patch. 0430 (Patch (dose and location) verified - Provider: Sveta Alexandra RN)2100 (Patch (dose and location) verified - Provider: Sunni Drummond RN) 0900 (Patch (dose and location) verified - Provider: Vane Pozo)2252 (Patch (dose and location) verified - Provider: Ana Yadav, SYBIL) 0927 (Patch (dose and location) verified - Provider: Mabel Strickland, SYBIL) prazosin (Minipress) capsule 1 mg 1 mg, Oral, 3 TIMES DAILY, First dose on Fri05/22/20 at 1730, Until Discontinued, Routine 0912 (Given - Provider: Johanne Segal RN)1528 (Given - Provider: Johanne Segal RN)2231 (Given - Provider: Sunni Drummond RN - Comment: pt wanted later) 0847 (Given - Provider: Vane Pozo)1415 (Not Given - Provider: Vane Pozo - Reason: Patient/family refused)2252 (Given - Provider: Ana Yadav RN) 0927 (Given - Provider: Mabel Strickland RN)1422 (Not Given - Provider: Mabel Strickland RN - Reason: Patient/family refused) sucralfate (Carafate) tablet 1 g 1 g, Oral, 3 TIMES DAILY BEFORE MEALS, First dose (after last modification) on Fri05/23/20 at 0730, Until Discontinued, Administer 1 hour before meals. Do not administer meds for 2hrs after taking this medication., Routine 0902 (Given - Provider: Johanne Segal RN)1130 (Not Given - Provider: Johanne Segal RN - Reason: See comment - Comment: am carafate late)1528 (Given - Provider: Johanne Segal RN)1708 (Given - Provider: Johanne Segal RN) 0706 (Given - Provider: Lisa Gil RN)1141 (Given - Provider: Vane Pozo)1630 (Given - Provider: Vane Pozo) 0637 (Given - Provider: Ana Yadav, SYBIL)1156 (Given - Provider: Mabel Strickland RN) PRN Medication Order 05/23/2020 05/24/2020 05/25/2020 acetaminophen (Tylenol) tablet 650 mg 650 mg, Oral, EVERY 6 HOURS PRN, Starting on Fri05/22/20 at 1640, Until Fri05/25/20 at 1711, Pain, Administer for pain (Not to exceed 4000 mg per 24 hours), Routine 0902 (Given - Provider: Johanne Segal RN) 0733 (Given - Provider: Vane Pozo)2252 (Given - Provider: Ana Yadav RN) albuteroL (PROVENTIL) nebulizer solution 2.5 mg 2.5 mg, Nebulization, EVERY 4 HOURS PRN, Starting on Fri05/22/20 at 1639, Until Fri05/25/20 at 1711, Wheezing, Shortness of Breath calcium carbonate (Tums) chewable tablet 1,000 mg 1,000 mg, Oral, EVERY 6 HOURS PRN, Starting on Fri05/24/20 at 1833, Until Fri05/25/20 at 1711, Heartburn, Routine 2251 (Given - Provider: Ana Yadav RN) 0935 (Given - Provider: Mabel Strickland RN) calcium carbonate (Tums) chewable tablet 500 mg (CANCELED) 500 mg, Oral, EVERY 6 HOURS PRN, Starting on Fri05/23/20 at 1718, Until Fri05/24/20 at 1833, Heartburn, Routine 1603 (Given - Provider: Vane Pozo) diazePAM (Valium) tablet 2 mg 2 mg, Oral, NIGHTLY PRN, Starting on Fri05/24/20 at 1023, Until Fri05/25/20 at 1711, Anxiety, Routine 1444 (Given - Provider: Mabel Strickland RN - Comment: Ok to give now per MD before d/c) diazePAM (Valium) tablet 5 mg (CANCELED) 5 mg, Oral, EVERY 6 HOURS PRN, Starting on Fri05/22/20 at 1725, Until Fri05/23/20 at 1723, Anxiety, Routine 0910 (Given - Provider: Johanne Segal RN) diazePAM (Valium) tablet 5 mg (CANCELED) 5 mg, Oral, EVERY 12 HOURS PRN, Starting on Fri05/23/20 at 2100, Until Fri05/24/20 at 1033, Anxiety, Routine 0733 (Given - Provider: Vane Pozo) diazePAM (Valium) tablet 5 mg 5 mg, Oral, DAILY PRN, Starting on Fri05/25/20 at 0000, Until Fri05/25/20 at 1711, Anxiety, Routine 0939 (Given - Provider: Mabel Strickland, RN) hydrOXYzine (Atarax) tablet 25 mg 25 mg, Oral, 3 TIMES DAILY PRN, Starting on Fri05/22/20 at 2236, Until Fri05/25/20 at 1711, Itching, Routine ipratropium-albuteroL (DUONEB) 0.5 mg-3 mg(2.5 mg base)/3 mL nebulizer solution 3 mL 3 mL, Nebulization, 4 TIMES DAILY PRN, Starting on Fri05/22/20 at 1640, Until Fri05/25/20 at 1711, Wheezing, Routine lidocaine (LIDODERM) 5 % patch 1 patch(Linked Group 1) 1 patch, Transdermal, NIGHTLY PRN, Starting on Fri05/22/20 at 2100, Until Fri05/25/20 at 1711, Pain, Apply patch(es) for 12 hours, and then remove for 12 hours, Routine 2251 (Patch Applied - Provider: Ana Yadav RN) melatonin tablet 3 mg 3 mg, Oral, NIGHTLY PRN, Starting on Fri05/22/20 at 1639, Until Fri05/25/20 at 1711, sleep, Routine nicotine polacrilex (NICORETTE) gum 4 mg 4 mg, Buccal, EVERY 1 HOUR PRN, Starting on Fri05/22/20 at 1640, Until Fri05/25/20 at 1711, Smoking cessation, Chew for 30 seconds, park in cheek for 30 seconds, repeat. May drink water. If multiple PRN medications for smoking cessation, may give gum concomitant with lozenge. Give half a piece for a total of 2mg q1h, Routine ondansetron (Zofran) tablet 4 mg 4 mg, Oral, EVERY 8 HOURS PRN, Starting on Fri05/22/20 at 1747, Until Fri05/25/20 at 1711, Nausea, Routine 2234 (Given - Provider: Sunni Drummond RN) 1421 (Given - Provider: Mabel M Strickland, RN) oxymetazoline (AFRIN) 0.05 % nasal spray 2 spray 2 spray, Each Nare, Administer over 3 Days, 2 TIMES DAILY PRN, Starting on Fri05/22/20 at 1807, Until Fri05/25/20 at 1711, Congestion, Detailer recommended duration is 3 days., Routine 0729 (Given - Provider: Vane Pozo) polyethylene glycoL (Miralax) packet 17 g 17 g, Oral, DAILY PRN, Starting on Fri05/22/20 at 1640, Until Fri05/25/20 at 1711, Constipation, Administer if needed per patient's routine or if no bowel movement within 48 hours to achieve: 1) One bowel movement at least every 48 hours, AND 2) Without straining. If multiple bowel medications ordered, consider polyethylene glycol(MIRALAX) first., Routine 1414 (Given - Provider: Vane Pozo) 0933 (Given - Provider: Mabel Strickland RN) Linked Groups Order Group 1: lidocaine (LIDODERM) 5 % patch 1 patchJump to med 1 patch, Transdermal, NIGHTLY PRN, Starting on Fri05/22/20 at 2100, Until Fri05/25/20 at 1711, Pain, Apply patch(es) for 12 hours, and then remove for 12 hours, Routine And lidocaine (LIDODERM) 5 %(700 mg/patch) Patch RemovalJump to med Transdermal, EVERY 24 HOURS, First dose on Fri05/23/20 at 0900, Until Discontinued, Remove lidocaine 5 %(700 mg/patch) patch Group 2: nicotine (NICODERM CQ) 14 mg/24 hr patch 14 mgJump to med 14 mg (1 patch), Transdermal, Administer over 24 Hours, DAILY, First dose on Fri05/22/20 at 1730, Until Discontinued, Routine And nicotine (NICODERM CQ) 14 mg/24 hr patch Patch VerificationJump to med Transdermal, 2 TIMES DAILY, First dose on Fri05/23/20 at 0430, Until Discontinued, Verify nicotine 14 mg/24 hr patch. And nicotine (NICODERM CQ) 14 mg/24 hr patch Patch RemovalJump to med Transdermal, DAILY, First dose on Fri05/23/20 at 1630, Until Discontinued, Remove nicotine 14 mg/24 hr patch documented in this encounter
--- OUTSIDE RECORDS SUMMARY | 2024-09-20 11:16 | XMS_ITS | Encounter Summary ---
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 Name Role Phone Unavailable Primary Care Provider Unavailabl e Reason for Visit * Reason Comments Chest Pain Encounter Details Date Type Department Care Team (Late st Contact Info) Description 03/30/2019 2:35 PM EDT - 03/30/2019 5:42 PM EDT Emergency Emergency Services at [address] [id number] Vazquez Ruiz MD [address] [place] [id number] Musculoskeletal chest pain; Pneumonia due to organism Discharge Disposition: Home Social History Tobacco Use Types Packs/Day Years Used Date Smoking Tobacco: Every Day Cigarettes Smokeless Tobacco: Never Comments:Smokess 0.5 - 1 pac ks of cigarettes daily x 13 - 14 years. Alcohol Use Standard Drinks/Week Comments Yes 0 (1 standard drink = 0.6 oz pur e alcohol) occasionally Sex and Gender Information Value Date Recorded Sex Assigned at Female 03/02/2024 7:39 AM EDT Gender Identity Female 03/02/2024 7:39 AM EDT Sexual Orientation Bisexual 03/02/2024 7: 39 AM EDT documented as of this encounter Last Filed Vital Signs Vital Sign Reading Time Taken Comments Blood Pressure 180/91 03/30/2019 5:00 PM EDT Pulse 74 03/30/2019 5:00 PM EDT Temperature 36.8 ??C (98.2 ??F) 03/30/2019 4:26 PM ED T Respiratory Rate 18 03/30/2019 5:00 PM EDT Oxygen Saturation 97% 03/30/2019 5:00 PM EDT Inhaled Oxygen Concentration - - Weight 66.2 kg (146 lb) 03/30/2019 2:43 PM EDT Height 162.6 cm (5' 4) 03/30/2019 2:43 PM EDT Body Mass Index 25.06 03/30/2019 2:43 PM EDT documented in this encounter Discharge Instructions * Discharge Instructions* Vazquez Ruiz MD - 03/30/2019 5:14 PM EDT Work to stop smoking as this can increase blood pressure and cause many other problems over time. See your doctor in one week for recheck. You will need a repeat chest x ray in 2-3 weeks for recheck.Call Receptionist/Telephone Operator for follow up appointment as your doctor requested. We are giving you a CD of your chest x ray to take to your doctor for their information. May use ibuprofen or tylenol for pain. * Attachments The following attachments cannot be sent through Care Everywhere. * Pneumonia (Georgian) documented in this encounter Medications at Time [...] 1 tablet by mouth as needed. diazePAM (VALIUM) 5 mg Tablet Take 5 mg by mouth daily as needed. 0 03/24/2019 05/25/2020 cefUROXime (CEFTIN) 500 mg Tablet Take 1 tablet by mouth 2 times daily for 7 days. 14 tablet 03/30/2019 04/06/2019 prazosin (MINIPRESS) 1 mg Capsule Take 1 mg by mouth 3 times daily. 02/13/2022 documented as of this encounter ED Notes * Vazquez Ruiz MD - 03/30/2019 5:42 PM EDT Chief Complaint Patient presents with ??? Chest Pain Present illness: This is a 33-year-old female who complains of chest pain. She has had chest pain intermittently for the last couple years. She has been seen by her doctor and also by entry analyst [facility]. She states that she has a sharp prickly type of pain in the center chest as well as a sharp pain in her left breast. She took aspirin last night for the pain. The pain came on last night. As noted above she has had it for over 2 years intermittently. She says she did have aheart monitor test and treadmill test. She has a history of hypertension and takes medicine for this. She says she was referred back to her entry analyst but she has not made that appointment yet. Tex has some pain between her scapula. She states she is on azithromycin 2 weeks ago for an infection in her lungs. She tried Tums and Rolaids for the pain but it did not help. She has had a cough. She does use tobacco Past Medical History: Diagnosis Date ??? Anxiety 08/03/2014 ??? Asthma 08/03/2014 ??? Flaherty's palsy ??? Chest pain 01/17/2016 ETT 2013- negative ST III Echo 2013 ??Normal LV size and function, trivial TR, mild PI ??? Chills ??? Cough ??? Depression ??? Fever ??? Headache ??? Hypertension 08/03/2014 ??? Shortness of breath ??? Tachycardia 08/03/2014 ??? Weight gain ??? Weight loss No past surgical history on file. Allergies Allergen Reactions ??? Morphine Unknown reaction ??? Penicillins Rash ??? Seroquel [Quetiapine] Made head feel loopy. No current facility-administered medications on file prior to encounter. Current Outpatient Medications on File Prior to Encounter Medication Sig Dispense Refill ??? prazosin (MINIPRESS) 1 mg Capsule Take 1 mg by mouth 3 times daily. ??? albuterol 90 mcg/actuation HFA Aerosol Inhaler Inhale 2 puffs into the lungs every 4 hours as needed for Wheezing. Use with spacer ??? doxepin (SINEQUAN) 25 mg Capsule Take 25 mg by mouth. ??? aspirin 81 mg Tablet, Delayed Release (E.C.) Take 81 mg by mouth daily. ??? diphenhydrAMINE (BENADRYL) 25 mg Capsule Take 25 mg by mouth every 6 hours as needed. ??? calcium carbonate (TUMS) 200 mg calcium (500 mg) Tablet, Chewable Take 1 tablet by mouth as needed. ??? acetaminophen (TYLENOL) 500 mg Tablet Take 1,000 mg by mouth every 6 hours as needed. Social History Socioeconomic History ??? Marital status: Single Spouse name: Not on file ??? Number of children: Not on file ??? Years of education: Not on file ??? Highest education level: Not on file Occupational History ??? Not on file Social Needs ??? Financial resource strain: Not on file ??? Food insecurity: Worry: Not on file Inability: Not on file ??? Transportation needs: Medical: Not on file Non-medical: Not on file Tobacco Use ??? Smoking status: Current Every Day Smoker Types: Cigarettes ??? Smokeless tobacco: Never Used ??? Tobacco comment: Smokess 0.5 - 1 packs of cigarettes daily x 13 - 14 years. Substance and Sexual Activity ??? Alcohol use: Yes Comment: occasionally ??? Drug use: No ??? Sexual activity: Not on file Comment: question deferred Lifestyle ??? Physical activity: Days per week: Not on file Minutes per session: Not on file ??? Stress: Not on file Relationships ??? Social connections: Talks on phone: Not on file Gets together: Not on file Attends jainism service: Not on file Active member of club or organization: Not on file Attends meetings of clubs or organizations: Not on file Relationship status: Not on file ??? Intimate partner violence: Fear of current or ex partner: Not on file Emotionally abused: Not on file Physically abused: Not on file Forced sexual activity: Not on file Other Topics Concern ??? Do You live alone? Not Asked ??? Tobacco in Home Not Asked Social History Narrative ??? Not on file Review of Systems Constitutional: Negative. HENT: Negative. Respiratory: Positive for cough and chest tightness. Negative for shortness of breath and wheezing. Cardiovascular: Positive for chest pain. Negative for leg swelling. Gastrointestinal: Positive for nausea. Negative for abdominal distention, abdominal pain and vomiting. Genitourinary: Negative. Musculoskeletal: Negative. Vitals:Blood pressure (!) 180/91, pulse 74, temperature 36.8 ??C (98.2 ??F), resp. rate 18, height 162.6 cm (5' 4), weight 66.2 kg (146 lb), last menstrual period 03/03/2019, SpO2 97 %. Physical Exam Constitutional: She appears well-developed and well-nourished. No distress. HENT: Mouth/Throat: Oropharynx is clear and moist. Eyes: Right eye exhibits no discharge. Left eye exhibits no discharge. No scleral icterus. Neck: Normal range of motion. No JVD present. No thyromegaly present. Cardiovascular: Normal rate, regular rhythm and normal heart sounds. Exam reveals no friction rub. No murmur heard. Pulmonary/Chest: Effort normal and breath sounds normal. No respiratory distress. She has no wheezes. She has no rales. She exhibits tenderness (She is tender in the anterior lower chest wall withoutpalpable abnormality.). Abdominal: Soft. She exhibits no distension. There is no tenderness. There is no guarding. Musculoskeletal: She exhibits no edema. Lymphadenopathy: She has no cervical adenopathy. Neurological: She is alert. Skin: Skin is warm and dry. Psychiatric: She has a normal mood and affect. Vitals reviewed. Recent Results (from the past 24 hour(s)) POCT urine Result Value Ref Range POC Urine HCG Negative Negative - Negative POC Control Internal Controls Acceptable Comprehensive metabolic panel (non-fasting) Result Value Ref Range Glucose Lvl 81 65 - 199 mg/dL BUN 15 8 - 18 mg/dL Creatinine 0.94 0.70 - 1.20 mg/dL Sodium 140 135 - 145 mmol/L Potassium 3.7 3.5 - 5.0 mmol/L Chloride 105 98 - 107 mmol/L CO2 24 22 - 31 mmol/L Anion Gap 11 5 - 15 mmol/L Calcium 9.3 8.5 - 10.5 mg/dL Total Protein 7.0 6.1 - 8.0 gm/dL Albumin 4.5 3.2 - 5.2 gm/dL AST 15 0 - 30 unit/L ALT 16 0 - 30 unit/L Alk Phos 86 40 - 104 unit/L Total Bilirubin <0.2 (L) 0.2 - 1.3 mg/dL eGFR 79 >=60 mL/min/1.73 m?? eGFR 92 >=60 mL/min/1.73 m?? Troponin Result Value Ref Range Troponin-T <0.01 0.00 - 0.00 ng/mL Hemogram Result Value Ref Range WBC 9.8 (H) 4.0 - 9.5 x10(3)/mcL RBC 4.47 4.00 - 5.21 x10(6)/mcL Hemoglobin 13.2 11.7 - 15.5 gm/dL Hematocrit 40.2 35.7 - 45.8 % MCV 89.9 82.6 - 94.4 fL MCH 29.5 27.1 - 32.0 pg MCHC 32.8 31.7 - 35.0 gm/dL Platelets 221 145 - 357 x10(3)/mcL RDWSD 42.9 37.0 - 46.0 fL RDWCV 12.9 11.5 - 14.1 % MPV 11.6 7.6 - 12.9 fL Differential, Automated Result Value Ref Range Neutrophils % 53.9 % Neutr Abs (ANC) 5.30 1.70 - 6.10 x10(3)/mcL Lymphocytes % 34.0 % Lymphocytes Abs 3.4 (H) 0.9 - 3.2 x10(3)/mcL Monocytes % 6.6 % Monocyte Abs 0.6 0.3 - 0.9 x10(3)/mcL Eosinophils % 4.7 % Eosinophils Abs 0.5 (H) 0.0 - 0.4 x10(3)/mcL Basophils % 0.7 % Basophils Abs 0.1 0.0 - 0.1 x10(3)/mcL Immature Gran % 0.10 % Jena Gran Abs 0.01 0.00 - 0.04 x10(3)/mcL ECG: No acute abnormalities noted. XR Chest PA & Lateral (Generic) Final Result Small area of added opacity projects over lower right lung, but without a definite correlate on the lateral projection. Consider empiric treatment for possible small inflammatory/infectious process with radiographic follow-up to confirm resolution versus persistence. Thank you for letting us participate in the care of this patient. For questions regarding this report, please contact the number below. Procedures: None MDM Emergency Department Course : The patient was evaluated and physical exam was done. She was given ketorolac with moderate improvement of her pain. We reviewed the results of the x-ray and electrocardiogram and blood test with her. I reviewed prior chest x-rays compared to the current one. Diagnoses: 1. Musculoskeletal chest pain 2. Pneumonia due to organism Plan: See below. Cefuroxime 500 mg twice daily for 1 week. General Instructions Work to stop smoking as this can increase blood pressure and cause many other problems over time. See your doctor in one week for recheck. You will need a repeat chest x ray in 2-3 weeks for recheck.Call Receptionist/Telephone Operator for follow up appointment as your doctor requested. We are giving you a CD of your chest x ray to take to your doctor for their information. May use ibuprofen or tylenol for pain. Follow up with:Lakhwinder Rust MD [address] [place] [id number] In 1 week Vazquez Ruiz MD 03/30/19 0718 * Leila Burnette RN - 03/30/2019 5:21 PM EDT 2:57 PM Cardio at bedside. 3:45 PM Blood drawn, urine collected. PT waiting for xray. 5:10 PM MD at bedside. 5:20 PM MD aware of PT BP. PT educated to follow up with her PCP. documented in this encounter Miscellaneous Notes * ED Triage - Leila Burnette RN - 03/30/2019 2:45 PM EDT Chest pain started last night PT took 162mg aspirin felt better. Pain started up again this morning. PT took more aspirin this morning which only helped a little bit. PT alert, orientedx3. documented in this encounter Plan of Treatment Upcoming Encounters Date Type Department Care Team (Late st Contact Info) Description 09/21/2024 8:15 AM EST Routine Obstetrics [place] [address] Emili Cabrera MD [facility] [address] [place] [address] 09/26/2024 6:00 PM EST Appointment [facility] [phone] 10/16/2024 [place] [phone] Dudley Aguilar MD [facility] [address] OBSTETRICS [place] [address] 11/08/2024 10:00 AM EST Hospital Encounter Non-[place] [phone] Arrived documented as of this encounter Procedures Procedure Name Priority Date/Time Associated Diagnosis Comments XR CHEST PA AND LATERAL STAT 03/30/2019 4:05 PM EDT HEMOGRAM STAT 03/30/2019 3:49 PM EDT DIFFERENTIAL, AUTOMATED STAT 03/30/2019 3:49 PM EDT CBC (WITH DIFF) STAT 03/30/2019 3:49 PM EDT TROPONIN STAT 03/30/2019 3:49 PM EDT COMPREHENSIVE METABOLIC PANEL STAT 03/30/2019 3:49 PM EDT EKG 12-LEAD STAT 03/30/2019 2:59 PM EDT POCT URINE STAT 03/30/2019 documented in this encounter Results * XR Chest PA & Lateral (Generic) (03/30/2019 4:05 PM EDT) Anatomical Region Laterality Modality Chest N/A Digital Radiogra phy Impressions 03/30/2019 4:11 PM EDT Small area of added opacity projects over lower right lung, but without a definite correlate on the lateral projection. Consider empiric treatment for possible small inflammatory/infectious process with radiographic follow-up to confirm resolution versus persistence. Thank you for letting us participate in the care of this patient. For questions regarding this report, please contact the number below. ? Electronically signed by: Cyn Bhakta [facility] ([phone]), at 03/30/2019 4:11 PM Narrative 03/30/2019 4:11 PM EDT EXAMINATION: XR CHEST PA AND LATERAL (GENERIC) CLINICAL HISTORY: Chest pain (Comment: ?cardiac) TECHNIQUE: PA and lateral views of the chest. COMPARISON: 08/26/2018. FINDINGS: Left nipple shadow is visualized. Small area of added opacity partially obscuring right-sided nipple shadow. This added opacity is not identified with confidence on the lateral projection. Left lung appears clear. The cardiomediastinal silhouette, charline, pulmonary vessels, and pleura are within normal limits. No significant osseous findings are seen. Procedure Note Cyn Bhakta MD - 03/30/2019 EXAMINATION: XR CHEST PA AND LATERAL (GENERIC) CLINICAL HISTORY: Chest pain (Comment: ?cardiac) TECHNIQUE: PA and lateral views of the chest. COMPARISON: 08/26/2018. FINDINGS: Left nipple shadow is visualized. Small area of added opacity partially obscuring right-sided nipple shadow. This added opacity is not identified with confidence on the lateral projection. Left lung appearsclear. The cardiomediastinal silhouette, charline, pulmonary vessels, and pleura arewithin normal limits. No significant osseous findings are seen. IMPRESSION Small area of added opacity projects over lower right lung, but without a definite correlate on the lateral projection. Consider empiric treatment for possible small inflammatory/infectious process withradiographic follow-up to confirm resolution versus persistence. Thank you for letting us participate in the care of this patient. Forquestions regarding this report, please contact the number below. Electronically signed by: Cyn Bhakta [facility]([phone]), at 03/30/2019 4:11 PM Vazquez Ruiz MD IMG DX ORDERABLES * (ABNORMAL) Differential, Automated (03/30/2019 3:49 PM EDT) Neutrophil % 53.9 % [facility] Neutrophil Absolute 5.30 1.70 - 6.10 x10(3)/mc L [facility] Lymph % 34.0 % [facility] Lymphocytes Abs 3.4(H) 0.9 - 3.2 x10(3)/mc L [facility] Monocyte % 6.6 % [facility] Monocyte Abs 0.6 0.3 - 0.9 x10(3)/mc L [facility] Eos % 4.7 % [facility] Eosinophils Abs 0.5(H) 0.0 - 0.4 x10(3)/mc L [facility] Basophil % 0.7 % [facility] Baso Absolute 0.1 0.0 - 0.1 x10(3)/mc L [facility] Immature Gran % 0.10 % [facility] Comment: Immature granulocytes(IG's)percentage and absolute count will include metamyelocytes, myelocytes, and promyelocytes. Blood smears from CBCs yielding IG's will be scanned manually for concordance. If this scan disagrees with the automated IG or if promyelocytes are noted, a manual differential will be performed. Immature Gran Absolute 0.01 0.00 - 0.04 x10(3)/mc L [facility] Blood specimen (specimen) 03/30/2019 3:49 PM EDT 03/30/2019 3:49 PM EDT Narrative Resulting Agency Comment Spec In Lab / APD Vazquez Ruiz MD HEMATOLOGY ORDERABLE S Performing Organization Address [facility] de Phone Number LABORATORY [address] [place] [address] * (ABNORMAL) Hemogram (03/30/2019 3:49 PM EDT) White Blood Cell 9.8(H) 4.0 - 9.5 x10(3)/mc L [facility] Red Blood Cell 4.47 4.00 - 5.21 x10(6)/mc L [facility] Hemoglobin 13.2 11.7 - 15.5 gm/dL [facility] Hematocrit 40.2 35.7 - 45.8 % [facility] Mean Cell Volume 89.9 82.6 - 94.4 fL [facility] Mean Cell Hemoglobin 29.5 27.1 - 32.0 pg [facility] Mean Cell Hemoglobin Concentration 32.8 31.7 - 35.0 gm/dL [facility] Platelet 221 145 - 357 x10(3)/mc L [facility] RDW Standard Deviation 42.9 37.0 - 46.0 fL [facility] RDW coefficient of variation 12.9 11.5 - 14.1 % [facility] Mean Platelet Volume 11.6 7.6 - 12.9 fL [facility] Blood specimen (specimen) 03/30/2019 3:49 PM EDT 03/30/2019 3:49 PM EDT Narrative Resulting Agency Comment Spec In Lab / APD Vazquez Ruiz MD HEMATOLOGY ORDERABLE S Performing Organization Address [facility] Co de Phone Number LABORATORY [address] [place] [address] * Troponin (03/30/2019 3:49 PM EDT) Troponin-T <0.01 0.00 - 0.00 ng/mL [facility] Blood specimen (specimen) 03/30/2019 3:49 PM EDT 03/30/2019 3:49 PM EDT Narrative Resulting Agency Comment Spec In Lab / APD Vazquez Ruiz MD CHEMISTRY ORDERABLES LABORATORY [address] [place] [address] * (ABNORMAL) Comprehensive metabolic panel (non-fasting) (03/30/2019 3:49 PM EDT) Glucose 81 65 - 199 mg/dL [facility] Comment:Diabetes: >=200 mg/d L plus symptoms Blood Urea Nitrogen 15 8 - 18 mg/dL [facility] Creatinine 0.94 0.70 - 1.20 mg/dL [facility] Sodium 140 135 - 145 mmol/L LAB[facility] Potassium 3.7 3.5 - 5.0 mmol/L LAB[facility]ORY Comment: Please note: ??Patients with WBC >100,000 may have falsely elevated Potassium levels. ??For accurate Potassium quantification in these patients send serum separator tube (gold top) for subsequent determinations. ??Contact the Clinical Chemistry Laboratory if there are any questions. Chloride 105 98 - 107 mmol/L LAB[facility]ORY Carbon Dioxide 24 22 - 31 mmol/L [facility] Anion Gap 11 5 - 15 mmol/L [facility] Calcium 9.3 8.5 - 10.5 mg/dL [facility] Protein, Total 7.0 6.1 - 8.0 gm/dL [facility] Albumin 4.5 3.2 - 5.2 gm/dL [facility] Aspartate Aminotransferase 15 0 - 30 unit/L LAB[facility] Alanine Aminotransferase 16 0 - 30 unit/L [facility] Alkaline Phosphatase 86 40 - 104 unit/L LAB[facility] Bilirubin, Total <0.2(L) 0.2 - 1.3 mg/dL [facility] Est Glomerular Filtration Rate 79 >=60 mL/min/1. 73 m?? LAB[facility]ATORY Comment: The eGFR was calculated using the CKD-EPI equation. As with all creatinine based estimates of kidney function, eGFR values calculated with the CKD-EPI equation are not accurate in patients with acute kidney failure, extremes of body mass or the acutely ill. [email or web address] eGFR 92 >=60 mL/min/1. 73 m?? [facility] Comment: The eGFR was calculated using the CKD-EPI equation. As with all creatinine based estimates of kidney function, eGFR values calculated with the CKD-EPI equation are not accurate in patients with acute kidney failure, extremes of body mass or the acutely ill. [email or web address] Blood specimen (specimen) 03/30/2019 3:49 PM EDT 03/30/2019 3:49 PM EDT Narrative Resulting Agency Comment Spec In Lab / APD Vazquez Ruiz MD CHEMISTRY ORDERABLES Performing Organization Address City/[facility] Co de Phone Number [facility] [address] [place] [phone] * EKG 12 Lead (03/30/2019 2:59 PM EDT) Ventricular rate 86 BPM MUSE SYSTEM Atrial Rate 86 BPM MUSE SYSTEM P-R Interval 126 ms MUSE SYSTEM QRS Duration 78 ms MUSE SYSTEM Q-T Interval 382 ms MUSE SYSTEM QTC Calculated (Bezet) 457 ms MUSE SYSTEM Calculated P [place] 57 degrees MUSE SYSTEM Calculated R [place] 14 degrees MUSE SYSTEM Calculated T [place] 40 degrees MUSE SYSTEM INTERPRETATION Normal sinus rhythm Poor R wave progression Cannot rule out Anterior infarct (cited on or before 05-JUL-2016) Abnormal ECG When compared with ECG of 05-JUL-2016 06:44, Vent. rate has increased BY ??43 BPM QT has lengthened Confirmed by MD Long Timothy ([id number]) on 03/30/2019 8:29:19 PM MUSE SYSTEM 03/30/2019 2:59 PM EDT 03/30/2019 8:29 PM EDT Vazquez Ruiz MD ECG ORDERABLES Performing Organization Address City/[facility]/ZIP Co de Phone Number MUSE SYSTEM * POCT urine (03/30/2019) POC Urine HCG Negative Negative - Negative POC Control Internal Controls Acceptable 03/30/2019 Vazquez Ruiz MD POINT OF CARE TEST O RDERABLES documented in this encounter Visit Diagnoses Diagnosis Musculoskeletal chest pain Other chest pain Pneumonia due to organism Pneumonia due to other specified organism documented in this encounter Administered Medications Inactive Administered Medications - up to 3 most recent administrations Medication Order MAR Action Action Date Dose Rate Site ketorolac (TORADOL) injection 30 mg 30 mg, Intravenous, ONCE, 1 dose, On Fri03/30/19 at 1545, STAT Given 03/30/2019 3:43 PM EDT 30 mg documented in this encounter Active and Recently Administered Medications Times are shown in EDT. Scheduled Medication Order 03/28/2019 03/29/2019 03/30/2019 ketorolac (TORADOL) injection 30 mg (COMPLETED) 30 mg, Intravenous, ONCE, 1 dose, On Fri03/30/19 at 1545, STAT 1543 (Given - Provid er: Leila Burnette RN) documented in this encounter
--- OUTSIDE RECORDS SUMMARY | 2024-09-20 11:16 | XMS_ITS | Encounter Summary ---
Author Organization [facility] Address [facility] [place] [address] Care Team Providers Care Slab Conditioner Supervisor Name Role Phone Unavailable Primary Care Provider Unavailabl e Encounter Details Date Type Department Care Team (Latest Contact Info) Description 04/14/2019 2:45 PM EDT Ancillary Procedure Radiology XRay at [facility] at [address] [phone] Lakhwinder Rust MD [address] [place] [address] Pneumonia due to infectious organism, unspecified laterality, unspecified part of lung Social History Tobacco Use Types Packs/Day Years [...] AM EST Routine Obstetric[place] [phone] Emili Cabrera MD [facility] [address] MATERNAL [place] [address] 09/26/2024 6:00 PM EST Appointment [facility] [place] [phone] 10/16/2024 Hospital Encounter Birthing [facility] [place] [phone] Dudley Aguilar MD [facility] OBSTETRICS [place] [address] 11/08/2024 10:00 AM EST Hospital Encounter Non-[place] [phone] Arrived documented as of this encounter Procedures Procedure Name Priority Date/Time Associated Diagnosis Comments XR CHEST PA AND LATERAL Routine 04/14/2019 2:31 PM EDT Pneumonia due to infectious organism, unspecified laterality, unspecified part of lung documented in this encounter Results * XR Chest PA & Lateral (Generic) (04/14/2019 2:31 PM EDT) Anatomical Region Laterality Modality Chest N/A Digital Radiogra phy Impressions 04/14/2019 2:43 PM EDT No infiltrate on the current examination. Thank you for letting us participate in the care of this patient. For questions regarding this report, please contact the number below. ? Narrative 04/14/2019 2:43 PM EDT EXAMINATION: XR CHEST PA AND LATERAL (GENERIC) CLINICAL HISTORY: FOLLOW UP PNEUMONIA TECHNIQUE: Frontal and lateral views of the chest COMPARISON: Previous chest x-ray 03/30/[address] examination of the chest 08/26/2018 FINDINGS: The trachea and mainstem bronchi are midline. The heart and mediastinal structures are normal in size. The lungs are clear. Note is made of bilateral nipple shadows asymmetric on the right. There is no evidence of an infiltrate or effusion. There is no pneumothorax. The bony thorax and upper abdomen are intact. Procedure Note Edward Rai MD - 04/14/2019 EXAMINATION: XR CHEST PA AND LATERAL (GENERIC) CLINICAL HISTORY: FOLLOW UP PNEUMONIA TECHNIQUE: Frontal and lateral views of the chest COMPARISON: Previous chest x-ray 03/30/[address] examination of the chest 08/26/2018 FINDINGS: The trachea and mainstem bronchi are midline. The heart and mediastinal structures are normal in size. The lungs are clear. Note is made ofbilateral nipple shadows asymmetric on the right. There is no evidence of aninfiltrate or effusion. There is no pneumothorax. The bony thorax and upper abdomenare intact. IMPRESSION No infiltrate on the current examination. Thank you for letting us participate in the care of this patient. Forquestions regarding this report, please contact the number below. Electronically signed by: Edward Rai [facility]([phone]), at 04/14/2019 2:43 PM Lakhwinder Rust MD IMG DX ORDERAB LES documented in this encounter Visit Diagnoses Diagnosis Pneumonia due to infectious organism, unspecified laterality, unspecified part of lung documented in this encounter
--- OUTSIDE RECORDS SUMMARY | 2024-09-20 11:16 | XMS_ITS | Encounter Summary ---
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 Name Role Phone Unavailable Primary Care Provider Unavailabl e Reason for Visit * Reason Comments Suicidal Thoughts Encounter Details Date Type Department Care Team (Late st Contact Info) Description 05/20/2020 3:52 PM EDT - 05/22/2020 1:04 PM EDT [place] [address] Kunal Carpio MD [facility] [place] [address] Horace Cox MD [facility] [place] [address] Marko Thapa MD [facility] [place] [address] Jules Fairbanks DO [facility] [address] Suicidal ideation Discharge Disposition: Psych Hospital/Distinct Part of Hospital Social History Tobacco Use Types Packs/Day Years [...] Sign Reading Time Taken Comments Blood Pressure 153/88 05/22/2020 7:30 AM EDT Pulse 83 05/22/2020 7:30 AM EDT Temperature 36.6 ??C (97.9 ??F) 05/22/2020 7:30 AM ED T Respiratory Rate 22 05/22/2020 7:30 AM EDT Oxygen Saturation 99% 05/22/2020 5:32 AM EDT Inhaled Oxygen Concentration - - Weight 70.3 kg (155 lb) 05/20/2020 4:11 PM EDT Height - - Body Mass Index 26.61 04/21/2019 4:24 PM EDT documented in this encounter Medications at Time [...] for Anxiety. 30 tablet 12 05/25/2020 12/13/2021 diazePAM (VALIUM) 5 mg Tablet Take 5 mg by mouth daily as needed. 0 03/24/2019 05/25/2020 lisinopril (PRINIVIL;ZESTRIL) 10 mg Tablet Take 10 mg by mouth daily. 2 04/01/2019 11/14/2021 prazosin (MINIPRESS) 1 mg Capsule Take 1 mg by mouth 3 times daily. 02/13/2022 documented as of this encounter ED Notes * Jules Fairbanks DO - 05/22/2020 12:30 PM EDT Patient Name: Aniya Luque Patient Age: 34 y.o. Birthdate: 1985 Admit date: 05/20/2020 Attending Physician: Jules Fairbanks DO Brief Sign Out Note I have accepted care of the patient from the prior treatment team. Please see ED notes for more details. HPI: Aniya Luque is a 34 y.o. who presents to the ED for depression with SI. She has been signed out to me pending bedsearch I have reviewed the nursing notes, vital signs and labs. Patient Vitals for the past 24 hrs: BP Temp Temp src Pulse Resp SpO2 05/22/20 0730 153/88 36.6 ??C (97.9 ??F) Oral 83 22 -- 05/22/20 0532 (!) 145/99 36.6 ??C (97.9 ??F) Oral 65 18 99 % 05/21/202018 144/83 36.6 ??C (97.9 ??F) Oral 59 16 99 % IEA: No Restraints: No Recent events: No Recent medications: Senna, mag citrate overnight Assessment: -Constipation - received mg citrate overnight, now a couple loose stools. On sennakot -Still SI, comes in waves. Tearful Plan: -Continue watching constipation -Continue psych bedsearch Jules Fairbanks DO 05/22/20 1232 * Shelly Staton - 05/22/2020 11:41 AM EDT Lunch tray at bedside. * Shelly Staton - 05/22/2020 10:38 AM EDT Breakfast tray at bedside. * Shelly Staton - 05/22/2020 7:54 AM EDT Pt given cool wash cloth to place on her forehead as requested per pt. * Dariela Morris RN - 05/22/2020 7:15 AM EDT 0715 Report received care assumed from Jasmin DEVINE, Pt. Just returned from bathroom states she had a small loose stool after drinking mag citrate last night. 0730 Pt. Pacing in room stating she doesn't feel right and feels like something is wrong and doesn't know what. Vital signs checked. Requested to use bathroom again, ambulated to bathroom with steadygait. 0745 Again requesting to go to the bathroom, ambulated with steady gait. Describes sm. Amt loose stool after drinking amg citrate last night. * Jasmin Guerin NRP - 05/22/2020 5:04 AM EDT Pt reporting increasing anxiety, requesting PRN medication. No other concerns expressed, ordered medication to be administered. * Jasmin Guerin NRP - 05/21/2020 9:36 PM EDT Pt awakened easily for COVID swab and medications. Declined 4th daily dose of valium and nicotine gum. Took BMX for abdominal discomfort. No further needs, resting comfortably. * Shannon Duran RN - 05/21/2020 6:15 PM EDT Pt awake, pleasant, calm, expressing acceptance, appropriate to situation, ambulating in room, pt reporting last stool 2 days ago, medications reviewed to facilitate bowel movement. Pt tolerated PO prune juice /butter heated. 1:1 sitter at doorway, pt anticipating inpatient admission. * Shannon Duran RN - 05/21/2020 5:45 PM EDT Pt in room, pt reported enjoyed shower, returned to room without incident. * Shannon Duran RN - 05/21/2020 1:55 PM EDT Pt expressed some anxiety regarding boarding in ED, reviewed safety and 1:1 sitter to meet pt's needs, pt encourage to keep door closed with curtain open for sitter viewing to minimize noises/distractions coming from hallway, pt in agreement with plan, pt expressed increased reassurance. * oTotie Zuniga LNA - 05/21/2020 1:53 PM EDT Pt is tearful. Pt states that she is anxious and feeling like she's going crazy. Nurse notified * Shannon Duran RN - 05/21/2020 12:38 PM EDT 1. IEA vs. voluntary ? Voluntary, if pt plans to leave, pt MAY NOT leave, Psychiatry to evaluate 2. Activities - level of activities the patient can perform , walk off unit - who accompanies off unit? Room, ambulates to shower 3. Who makes medical decisions for patient? Patient decision maker 4. Are there any restrictions for visitors? No 5. 1:1 yes/no? 1;1 6. What is the discharge plan? Inpatient psychiatry [facility] [facility] * Shannon Duran RN - 05/21/2020 12:[address] Latosha Cobb Psychiatry at pt's bedside. * Shannon Duran RN - 05/21/2020 12:00 PM EDT Pt lying on left side, eyes closed, respirations easy, appears to be resting comfortably, 1:1 sitter at doorway, pt awaiting disposition to inpatient psychiatry. * Aditya Gonzalez MD - 05/21/2020 11:29 AM EDT Aniya Luque is a34 y.o. female who presented withdepression and is being held in the ED awaiting psychiatric placement. Please see ED notes for more details. I reviewed the nursing notes, vital signs and labs Patient Vitals for the past 24 hrs: BP Temp Temp src Pulse Resp SpO2 Weight 05/21/20 0730 145/82 36.6 ??C (97.9 ??F) Oral 68 18 97 % -- 05/20/20 1611 (!) 132/92 36.7 ??C (98.1 ??F) Oral 81 21 98 % 70.3 kg (155 lb) Recent Results (from the past 24 hour(s)) POCT urine Result Value Ref Range POC Urine HCG Negative Negative - Negative POC Control Internal Controls Acceptable Basic Metabolic Panel (non-fasting) Result Value Ref Range Glucose Lvl 104 65 - 199 mg/dL BUN 10 8 - 18 mg/dL Creatinine 0.97 0.70 - 1.20 mg/dL Sodium 141 135 - 145 mmol/L Potassium 3.5 3.5 - 5.0 mmol/L Chloride 104 98 - 107 mmol/L CO2 23 22 - 31 mmol/L Anion Gap 14 5 - 15 mmol/L Calcium 8.9 8.5 - 10.5 mg/dL eGFR 76 >=60 mL/min/1.73 m?? eGFR 88 >=60 mL/min/1.73 m?? Hepatic Function Panel Result Value Ref Range Total Protein 6.8 6.1 - 8.0 gm/dL Albumin 4.5 3.2 - 5.2 gm/dL AST 13 0 - 30 unit/L ALT 13 0 - 30 unit/L Alk Phos 79 35 - 105 unit/L Total Bilirubin 0.5 0.2 - 1.3 mg/dL Bili, Direct 0.1 0.0 - 0.3 mg/dL TSH Adamant Result Value Ref Range TSH 1.16 0.27 - 4.20 mcIU/mL Ethanol Level Result Value Ref Range Ethanol Lvl <100 <=99 mg/L Acetaminophen level Result Value Ref Range Acetamin Lvl <5 (L) 10 - 30 mg/L Salicylate Result Value Ref Range Salicylate Lvl <20 mg/L Hemogram Result Value Ref Range WBC 8.7 4.0 - 9.5 x10(3)/mcL RBC 4.36 4.00 - 5.21 x10(6)/mcL Hemoglobin 12.0 11.7 - 15.5 gm/dL Hematocrit 36.6 35.7 - 45.8 % MCV 83.9 82.6 - 94.4 fL MCH 27.5 27.1 - 32.0 pg MCHC 32.8 31.7 - 35.0 gm/dL Platelets 215 145 - 357 x10(3)/mcL RDWSD 44.1 37.0 - 46.0 fL RDWCV 14.4 (H) 11.5 - 14.1 % MPV 11.8 7.6 - 12.9 fL nRBC % Auto 0.0 % nRBC Abs Auto 0.000 0.000 - 0.000 x10(3)/mcL Differential, Automated Result Value Ref Range Neutrophils % 69.8 % Neutr Abs (ANC) 6.08 1.70 - 6.10 x10(3)/mcL Lymphocytes % 21.7 % Lymphocytes Abs 1.9 0.9 - 3.2 x10(3)/mcL Monocytes % 7.2 % Monocyte Abs 0.6 0.3 - 0.9 x10(3)/mcL Eosinophils % 0.7 % Eosinophils Abs 0.1 0.0 - 0.4 x10(3)/mcL Basophils % 0.3 % Basophils Abs 0.0 0.0 - 0.1 x10(3)/mcL Immature Gran % 0.30 % Jena Gran Abs 0.03 0.00 - 0.04 x10(3)/mcL Blue Tube HOLD Result Value Ref Range Blue Hold Sample in lab. Red Tube Hold Result Value Ref Range Red Hold Sample in lab. Urinalysis with reflex Culture Specimen: Clean Catch Urine Result Value Ref Range Glucose UA Negative Negative mg/dL Protein UA Negative Negative mg/dL Bilirubin UA Negative Negative mg/dL Urobilinogen UA Normal Normal mg/dL pH UA 7.5 5.0 - 8.0 Blood UA Negative Negative mg/dL Ketones UA Negative Negative mg/dL Nitrite UA Negative Negative Leukocytes UA Negative Negative mcL Appearance UA Clear Clear Spec Douglass UA 1.008 1.006 - 1.030 Color UA Yellow Yellow Culture Reflexed No Rapid Drug Screen, Urine (DAVID Request) Result Value Ref Range DAVID Conf Requested No DAVID Requested See Comment Rapid Drug Screen w/o Confirmation, Urine Result [...] U Adulterants Screen None Detected None Detected I reviewed the psychiatric notes and recommendations. Plan: Daily care and disposition discussed with psychiatry team. Please refer to their notes for further details of acute psychiatric care. Disposition: Pending Aditya Gonzalez MD 05/21/20 1129 * Tootie Zuniga LNA - 05/21/2020 9:50 AM EDT Pt is laying in bed, playing with smart phone. * Lexie Davila RN - 05/21/2020 6:57 AM EDT Pt with coughing fit in morning when she woke up, states same that has been happening over last 4 days, pt states her hands and feet are numb/tingling, endorses feeling like 'I am going crazy', pt shaking and tearful, emotional support given, Dr Corral updated. * Lexie Davila RN - 05/21/2020 5:58 AM EDT Pt sleeping, NAD, 1:1 remains, pt asked for cough medicine but is sleeping, will offer PRN when wakes. * Lexie Davila RN - 05/20/2020 8:[address] Bey aware of pt wanting to leave, per MD pt can not leave, will cont to monitor, psych to come eval. * Lexie Davila RN - 05/20/2020 8:11 PM EDT Pt with increased anxiety, refusing to take valium, wanting to step off unit, told pt that since she came into ED feeling unsafe unable to let pt outside, pt cont to pace in front on RN station, attempted to give nicotine gum, pt upset at delay in placement, will consult psych and MD. * Kaila Day RN - 05/20/2020 6:13 PM EDT Psych MD here to evaluate pt, pt taken to [facility] for privacy of conversation * Fior Joyner PA - 05/20/2020 5:59 PM EDT ED PROVIDER SIGN OUT NOTE: Patient: Aniya Luque Age (): 34 y.o. (1985) Time of transfer of care: 6PM Care transferred from: Leo Whittington PA-C Condition at time of transfer: Stable CLINICAL SUMMARY Aniya Luque is a 34 y.o. female with PMH significant for GERD, ALIRIO, MDD, chronic nausea, reactive airway disease, and HTN who presented to the ED for SI. Please see initial ED provider note for their initial evaluation, assessment and plan. Briefly, patient with self harm behavior (cutting) without particular plan for ending her own life but who wants to be admitted to psychiatry voluntarily. Medically cleared for psychiatric disposition barring significant laboratory abnormality, with labs pending upon sign out. Anticipate voluntary admission to psychiatry. ASSESSMENT & PLAN SUBSEQUENT ED COURSE: Labs without significant abnormality. Psych to admit patient voluntarily for SI though note she should not be allowed to leave AMA as she would be a potential IEA candidate. FINAL ASSESSMENT: 1. SI DISPO: Stable, admit to psychiatry. Anticipate boarding in ED until Friday per psych. Fior Joyner PA 05/20/201940 * Leo Whittington PA - 05/20/2020 5:01 PM EDT Chief Complaint Patient presents with ??? Suicidal Thoughts HPI This is a 34-year-old female with history of GERD, anxiety, chronic nausea, reactive airway disease, hypertension, depression, and bipolar who presents with acutely worsening depression. Patient states that she has been coughing, has felt nauseous, and generally feels like her body is failing her. Says that she has not been taking her mental health medication as a result of the way she has beenfeeling. She currently is only taking Valium 5 mg 3 times daily and is not taking any other meds. Says that she has recently been cutting herself and she does not have a specific plan to harm herselfhowever does not feel like she can continue on like this. She says she has been admitted to psychiatry in the past however it has not been for many years. Allergies Allergen Reactions ??? Morphine Other (See Comments) Cannot recall ??? Penicillins Rash ??? Seroquel [Quetiapine] Other (See Comments) Made head feel loopy. Review of Systems Constitutional: Negative for fever. HENT: Negative for rhinorrhea. Eyes: Negative for pain. Respiratory: Positive for cough. Negative for shortness of breath. Cardiovascular: Negative for chest pain. Gastrointestinal: Positive for nausea. Negative for abdominal pain. Endocrine: Negative for polyuria. Genitourinary: Negative for frequency. Musculoskeletal: Negative for back pain. Skin: Negative for rash. Neurological: Negative for headaches. Psychiatric/Behavioral: Positive for self-injury and suicidal ideas. Negative for confusion. The patient is nervous/anxious. Physical Exam Constitutional: Appearance: She is well-developed. HENT: Head: Normocephalic. Mouth/Throat: Mouth: Mucous membranes are moist. Eyes: Pupils: Pupils are equal, round, and reactive to light. Neck: Musculoskeletal: Neck supple. Cardiovascular: Rate and Rhythm: Normal rate and regular rhythm. Pulmonary: Effort: Pulmonary effort is normal. Breath sounds: Normal breath sounds. Abdominal: General: Bowel sounds are normal. Palpations: Abdomen is soft. Skin: General: Skin is warm and dry. Neurological: Mental Status: She is alert and oriented to person, place, and time. Psychiatric: Mood and Affect: Mood normal. Recent Results (from the past 24 hour(s)) Blue Tube HOLD Result Value Ref Range Blue Hold Sample in lab. Red Tube Hold Result Value Ref Range Red Hold Sample in lab. Procedures MDM This is a 34-year-old female with history of bipolar, depression, chronic cough, chronic nausea, hypertension, and reactive airway disease who presents emergency department with worsening depression and suicidal thoughts. She says that her cough and nausea has been bothering her and she has not been taking her meds as a result. She has been doing some superficial cutting and says that she cannot continue on like this. Patient has been taking her Valium, otherwise has not been taking any medication. Patient's physical exam is unremarkable. She has chronic nausea and cough and is medically stable for psychiatric disposition. Care signed out to oncoming provider pending psych evaluation and labs returning. ED Course: -H&P -Labs -Psych consult -Care signed out. Leo Whittington PA 05/20/20 8639 documented in this encounter Miscellaneous Notes * Consult Note - Haydee Mendoza PsyD - 05/22/2020 1:04 PM EDT Met with pt briefly to determine if patient was still agreeable to voluntary inpatient admission. Pt reported that she was still in agreement with this plan. Pt is apprised of unit rules including attending groups , electronics usage, skin check and checking of belongings, and being open to considering other medications. * Consult Note - Darrell Abbott - 05/21/2020 5:06 PM EDT Psychiatry Emergency Department - Progress Note 05/21/2020 Interval History: (1,1,4) Narrative: NAOE. This AM, the patient states that upon waking she experienced a coughing fit, which has been occurring the last several days. She also notes some numbness and tingling diffusely, but denies weakness, vision changes, headache, chest pain, dyspnea. The patient does endorse AH of a man and woman's voice, but is unable to make out what is being said. The voices do not command her to do anything.She denies VH, delusions. The patient denies SI/HI presently, remains voluntary for admission. Suicide Risk Factors on Day of ED Presentation: Enduring Factors: absence of significant social support, chronic mental health problems and historyof previous suicide attempts Dynamic Factors: depressive symptoms and sense of hopelessness Protective Factors: engaged in medical and/or mental health care Access to Firearms: No Vitals (24hr Range): Temp: [36.6 ??C (97.9 ??F)] Resp: [18] Heart Rate: [68] BP: (145)/(82) SpO2: [97 %] Patient Vitals for the past 168 hrs: Weight 05/20/20 1611 70.3 kg (155 lb) Mental Status Exam: ?? Appearance: age appropriate and casually dressed ?? Behavior: cooperative with the interview and calm ?? Speech: normal pitch, normal volume and normal rate ?? Language: fluent in equatorial guinean ?? Mood: tired ?? Affect: constricted ?? Thought Process: perserverative ?? Associations: intact ?? Thought Content: denied homicidal ideation, denied suicidal ideation and no paranoid delusions, + possible somatic delusions ?? Perception: denied visual hallucinations not observed responding to internal stimuli, +AH ?? Orientation: grossly intact by interview ?? Attention/Concentration: able to sustain focus ?? Cognition: grossly intact by interview ?? Memory: recent and remote memory grossly intact ?? Fund of Knowledge: appropriate for age and level of functioning ?? Insight: limited ?? Judgment: fair - presenting for treatment [place]io Suicide Risk Scale - Initial Assessment: Wish to be : In the last 30 days, have you wished you were or wished you could go to sleepand not wake up?: Yes (05/21/20299) Suicidal Thoughts: Have you had any actual thoughts of killing yourself?: Yes (05/21/20299) Suicidal Thoughts with Method (without Specific Plan or Intent to Act): Have you been thinking about how you might do this?: Yes (05/21/20299) Suicidal Intent (without Specific Plan): Have you had these thoughts and had some intention of acting on them?: Yes (05/21/20299) Suicidal Intent with Specific Plan: Have you started to work out or worked out the details of how to kill yourself? Do you intend to carry out this plan?: Yes (05/21/20299) Suicide Behavior Question: Have you ever done anything, started to do anything, or prepared to do anything to end your life?: No (05/21/20299) Was this within the past 3 months?: No (05/21/20299) Ref[place]io Suicide Risk Scale - Daily Assessment (most recently completed): Suicidal Thoughts: Since you were last asked, have you had any actual thoughts of killing yourself?: No (05/21/20734) Suicide Behavior Question: Since you were last asked have you done anything, started to do anything, or prepared to do anything to end your life?: No (05/21/20734) Labs: Psychiatry Labs (Last 24 hours): Preg: No results found for: HCGQUAL, HCGQUANT [...] HA1C Vit Lvls: No results found for: [id number], SFOLATE UA: Lab Results Component Value Date [...] LAMOTRIGINE, CLOZAPINE Assessment: (including Suicide Risk Assessment) Aniya Luque is a 34 y.o. Female with a history of MDD and ALIRIO presenting with worsening anxiety and SI. The patient perseverates on somatic symptoms such as dizziness, tingling, and numbness andbelieves that something is physically wrong with her despite repeated reassurance. Anxiety appears to be driving factor behind SI as patient has stated that if she cannot get her anxiety under control she may end her life. Given depressed mood, somatic delusions, and AH there is suspicion for MDD episode with psychotic features. Patient is boarding in the ED currently, while awaiting voluntary bed on the inpatient psychiatric unit. Current Suicide Assessment: patient is at elevated suicide risk given stated suicidal ideation, depressed mood, lack of social support, and prior history of suicide attempt. She may meet IEA criteria, but risk is mitigated by voluntary inpatient hospitalization. Diagnosis: MDD w/ psychotic features Plan: # MDD w/ psychotic features - will consider starting SSRI vs. Antipsychotic when patient is admitted to the unit # Anxiety - Continue home Valium 5 mg QID, with intention to taper once patient is admitted # Nicotine Dependent - NRT Patient on IEA Status? IEA: No, Patient is not on an IEA. Awaiting voluntary placement, but safety concerns exist if pt decided to leave. Patient can leave AMA without psychiatric assessment? No Signed By: Darrell Abbott MD 05/21/2020 Associated attestation - Latosha Cobb MD - 05/21/2020 8:21 PM EDT See attending documentation on initial psychiatric eval for details. Agree with resident note and plan. * Consult Note - Dudley Childs MD - 05/20/2020 6:14 PM EDT EMERGENCY DEPARTMENT PSYCHIATRIC EVALUATION The patient was seen at 18:00 Time Spent: 45 minutes Referral Source: ED Additional Attendee(s) (identify by relationship to pt.): None Information source: Patient. Chief Complaint: 34 y.o. Female presents to [facility] Emergency Department with worsening anxiety and SI. History of Present Illness: (1,1,4) 34 year old female with history of MDD, ALIRIO presents with worsening anxiety and SI. Patient states that for the past three days my body has just been feeling different. Reports nausea, dizziness, feeling light headed, numbness and tingling of her whole body. She states that anxiety has become intolerable to the point that she is having thoughts of not wanting to be around anymore. She states that she has not showered in 3 days due to preoccupation with these new physical symptoms and states If I don't kill myself, whatever is happening to my body is going to kill me.She reports that she has been cutting her arms and thought about purposely driving her car into a wall. Denies any life event or circumstantial change in the last 3 days. She reports that she is having trouble sleeping, has excessive feelings of guilt and hopelessness. Reports poor concentration and inconsistent appetite. For the past few months she reports being disturbed by noise, light and does not like talking with people. She states that she becomes frustrated quickly. She states that she does not feel safe right now. Reports hearing voices coming from outside her head but she can't make out what they are saying andstates this has been going on for 1.5 years. Voices are worse when she is stressed. Denies command auditory hallucinations. Current Meds: Zofran 4 mg TID PRN nausea Prazosin 1 mg TID for HTN Valium 5 mg QID PRN Sucrulfate 1 mg QID PRN Prilosec for heartburn Zyrtec Dyphenihydramine 25 mg Psychiatric Review of Systems: Sustained Depressed Mood: Yes Sustained Elevated Mood: No Sustained Irritable Mood: Yes Flashbacks: No Nightmares: No Panic Attacks: Yes Chronic Worry: Yes Psychotic Symptoms: Yes Obsessions/Compulsions: No Violence: No Self Harm: Yes Suicide Risk Factors on Day of ED Presentation: Enduring Factors: absence of significant social support, chronic mental health problems and historyof previous suicide attempts Dynamic Factors: depressive symptoms and sense of hopelessness Protective Factors: engaged in medical and/or mental health care Access to Firearms: No Other Psychiatric History: Prior diagnoses: ALIRIO MDD Past hospitalization and location: [id number] dozens of admissions to [facility] Suicide attempt details: Overdose age 13 required hospitalization Past psychiatric medications: Doxepin Seroquel (induced hallucinations per patient) Substance Use History/Treatment: 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 Current Outpatient Medications on File Prior to Encounter Medication Sig Dispense Refill ??? diazePAM (VALIUM) 5 mg Tablet Take 5 mg by mouth daily as needed. 0 ??? lisinopril (PRINIVIL;ZESTRIL) 10 mg Tablet Take 10 mg by mouth daily. 2 ??? [id number] 0.18/0.215/0.25 mg-25 mcg Tablet Take 1 tablet by mouth daily. ??? prazosin (MINIPRESS) 1 mg Capsule Take [...] by mouth every 6 hours as needed. Allergies: Allergies Allergen Reactions ??? Morphine Other (See Comments) Cannot recall ??? Penicillins Rash ??? Seroquel [Quetiapine] Other (See Comments) Made head feel loopy. Problem List: Patient Active Problem List Diagnosis Code ??? Anxiety F41.9 ??? Depression F32.9 ??? Asthma J45.909 ??? Hypertension I10 ??? Tachycardia R00.0 ??? Skin disease L98.9 ??? Chest pain R07.9 Past Medical/Surgical History: Past Medical History: Diagnosis Date ??? Anorexia ??? Anxiety 08/03/2014 ??? Asthma 08/03/2014 ??? Flaherty's palsy ??? Chest pain 01/17/2016 ETT 2013- negative ST III Echo 2013 ??Normal LV size and function, trivial TR, mild PI ??? Depression ??? Headache ??? Hypertension 08/03/2014 Past Surgical History: Procedure Laterality Date ??? DILATION AND CURETTAGE OF UTERUS x2 HTN GERD Family Medical/Psychiatric History: Denies Social History: Lives in [place], [place] 3 kids and 2 in her custody Disability income for anxiety Sister Glenys is her biggest support Vitals (24hr Range): Patient Vitals for the past 24 hrs: Temp Pulse Resp BP SpO2 O2 Device 05/20/20 1611 36.7 ??C (98.1 ??F) 81 21 (!) 132/92 98 % RA Musculoskeletal System: normal gait and balance Mental Status Exam: ?? Appearance: age appropriate,casually dressed ?? Behavior: cooperative with the interview, restless and intermittent eye contact, pacing ?? Speech: normal volume, normal rate and normal rhythm ?? Language: fluent in equatorial guinean ?? Mood: anxious, hopeless ?? Affect: constricted, tearful ?? Thought Process: perserverative about somatic symptoms ?? Associations: intact ?? Thought Content: +SI ?? Perception: Denied AH currently ?? Orientation: grossly intact by interview ?? Attention/Concentration: able to sustain focus ?? Cognition: grossly intact by interview ?? Memory: recent and remote memory grossly intact ?? Fund of Knowledge: appropriate for age and level of functioning ?? Insight: fair ?? Judgment: limited Wish to be : In the last 30 days, have you wished you were or wished you could go to sleepand not wake up?: Yes (05/20/201615) Suicidal Thoughts: Have you had any actual thoughts of killing yourself?: Yes (05/20/201615) Suicidal Thoughts with Method (without Specific Plan or Intent to Act): Have you been thinking about how you might do this?: Yes (05/20/201615) Suicidal Intent (without Specific Plan): Have you had these thoughts and had some intention of acting on them?: Yes (05/20/201615) Suicidal Intent with Specific Plan: Have you started to work out or worked out the details of how to kill yourself? Do you intend to carry out this plan?: Yes (05/20/201615) Suicide Behavior Question: Have you ever done anything, started to do anything, or prepared to do anything to end your life?: No (05/20/201615) Was this within the past 3 months?: No (05/20/201615) Labs: Psychiatry Labs (Last 24 hours): Preg: No results found for: HCGQUAL, HCGQUANT [...] results found for: PTT, PT, INR Thyroid: No results found for: TSH, L3HAVZA, TT4 Lipids and HgbA1C: No results found for: CHLPL, HDL, CHOLHDL, LDLCHOL, LDLDIRECT, TRIG No results found for: HA1C Vit Lvls: No results found for: [id number], SFOLATE UA: Lab Results Component Value Date GLUCOSEU Negative 05/20/2020 KETONESUA Negative 05/20/2020 PROTEINUADIP Negative 05/20/2020 BLOODUADIP Negative 05/20/2020 LEUKOESTERUA Negative 05/20/2020 NITRATEUA Negative 05/20/2020 (May not represent most recent UA results. See eD-H labs for more details.) Tox: Lab Results Component Value Date ETHANOL <100 05/20/2020 No results found for: UDAUSCREEN Rx Lvls: No results found for: LITHIUM, CARBAMAZEPIN, VALPROATE, LAMOTRIGINE, CLOZAPINE Assessment: (including Suicide Risk Assessment) Aniya Luque is a 34 y.o. Female with a history of MDD, ALIRIO and presenting with worsening anxiety and SI. The patient is very concerned about physical symptoms which she states are anxiety provoking such as dizziness, tingling and numbness. She is adamant that something is physically wrong withher and feels that she is going to . Signs of paranoia present throughout interview with patientintermittently looking over her shoulder in fear. Anxiety appears to be driving factor behind SI as patient has stated that if she cannot get her anxiety under control she may end her life. However, given somatic focus and admission of history of auditory hallucinations there is reasonable suspicion that psychosis may be a contributing factor to SI as well. Patient denies AH currently but paranoia and somatic focus with impending sense of doom may fit with an episode depression with psychotic features. Current Suicide Assessment: Elevated given patient reporting SI currently and absence of significant social support, chronic mental health problems and history of previous suicide attempts Diagnosis: Depression with psychotic features vs ALIRIO/MDD Plan: # Anxiety ?? Continue home Valium 5 mg QID ?? Consider taper once admitted # Depression/Paranoia * Consider SSRI and/or antipsychotic # Tobacco Use ?? 14 mg patch ?? Nicorette gum # Suicide Risk Mitigation ?? Patient monitoring 1 staff: 1 patient Signed By: Dudley Childs MD 05/20/2020 Associated attestation - Latosha Cobb MD - 05/21/2020 1:24 PM EDT Psychiatry Teaching Physician Involvement Resident: Amadeo I saw and evaluated the patient within 24 hours and discussed the case with the resident. I reviewed the patient???s history during the visit and I agree with the details as written. My exam confirms the resident's findings. The assessment and plan were formulated in discussion with me and I agree with them as documented. Major issues addressed/discussed: Patient with unclear psychiatric history (reports history of auditory hallucinations, including currently, but only treated with diazepam) here with worsening anxiety and suicidal ideation. Very somatically preoccupied and worries something is wrong with her medically. Reports hearing a male and female voice that are not her own and have continued to occur in the ED. Fairly disorganized on our exam and unable to provide detailed history. May benefit from antipsychotic medication, but says she is concerned about side effects. She remains voluntary for psychiatric admission and understands that bed likely to be available tomorrow. She is not currently IEAd, but safety concerns exist. If she were to ask to leave, she would need to be evaluated for safety by psychiatry. Would recommend continuing 1:1 observation at this time dueto potential for impulsivity. Psychiatry will continue to follow and assist with disposition. Please page [phone] with questions. * ED Triage - Charline Mlils RN - 05/20/2020 4:13 PM EDT Patient presents to the ED via EMS. She reports ongoing nausea and heartburn with chronic cough that has been making taking her medications difficult. Patient has not been taking psychiatric medications due to this and now presents with feeling like she is falling apart. She reports that she is afraid to however thinks often about taking his life. Patient reports that she is not eating or drinking and has starting cutting herself again. Patient appears anxious and tearful on arrival. Makes eye contact however appears to be unsettled. Patient alert and oriented x4. Skin is pink,warm and dry. documented in this encounter Plan of Treatment Upcoming Encounters Date Type Department Care Team (Late st Contact Info) Description 09/21/2024 8:15 AM EST Routine Obstetrics [place] [address] Emili Cabrera MD [facility] [place] [address] 09/26/2024 6:00 PM EST Appointment [facility] [place] [address] 10/16/2024 [place] [address] Dudley Aguilar MD [facility] [address] [place] [address] 11/08/2024 10:00 AM EST Hospital Encounter Non-[place] [address] Arrived documented as of this encounter Procedures Procedure Name Priority Date/Time Associated Diagnosis Comments RAPID COVID-19 PCR ([facility]) STAT 05/21/2020 9:13 PM EDT XR CHEST PA AND LATERAL STAT 05/20/2020 5:45 PM EDT RAPID DRUG SCREEN, URINE STAT 05/20/2020 5:24 PM EDT RAPID DRUG SCREEN W/O CONFIRMATION, URINE STAT 05/20/2020 5:24 PM EDT URINALYSIS WITH REFLEX CULTURE STAT 05/20/2020 5:24 PM EDT HC THYROID STIMULATING HORMONE, SERUM STAT 05/20/2020 5:15 PM EDT RED TUBE HOLD STAT 05/20/2020 5:15 PM EDT HEMOGRAM STAT 05/20/2020 5:15 PM EDT DIFFERENTIAL, AUTOMATED STAT 05/20/2020 5:15 PM EDT BLUE TUBE HOLD STAT 05/20/2020 5:15 PM EDT HC CBC,PLT & AUTO DIFF STAT 05/20/2020 5:15 PM EDT HC ALCOHOL, BLOOD STAT 05/20/2020 5:1 5 PM EDT HC ACETAMINOPHEN, SERUM STAT 05/20/2020 5:15 PM EDT HC SALICYLATES, SERUM STAT 05/20/2020 5:15 PM EDT HEPATIC FUNCTION PANEL STAT 05/20/2020 5:15 PM EDT BASIC METABOLIC PANEL STAT 05/20/2020 5:15 PM EDT POCT URINE STAT 05/20/2020 5:10 PM EDT documented in this encounter Results * COVID-19 PCR (05/21/2020 9:13 PM EDT) SARS-CoV-2 RNA (Rapid) Not Detected Not Detected [facility] Comment: This result should be [...] using the Simplexa COVID-19 Direct Assay by QualQuant Signals as authorized by the FDA issued Emergency [...] Department of Pathology and Laboratory Medicine at [facility], certified under the Clinical Laboratory [...] webpage under Information for Healthcare Professionals (https://www.cdc.gov/coronavirus/2019-ncov/hcp/index.html). SARS-CoV-2 Source [employer] [facility] Nasopharyngeal swab (specimen) 05/21/2020 9:13 PM EDT 05/21/2020 10:00 PM EDT Comment:Symptoms->Surveillan ce Narrative Resulting Agency Comment Spec In Lab Aditya Gonzalez MD MICROBIOLOGY - GENER AL ORDERABLES [facility] [place] [address] * XR Chest PA & Lateral (Generic) (05/20/2020 5:45 PM EDT) Anatomical Region Laterality Modality Chest N/A Digital Radiogra phy Impressions 05/20/2020 6:33 PM EDT No acute cardiopulmonary process. Thank you for letting us participate in the care of this patient. For questions regarding this report, please contact the number below. ? Narrative 05/20/2020 6:33 PM EDT EXAMINATION: XR CHEST PA AND LATERAL (GENERIC) CLINICAL HISTORY: cough TECHNIQUE: PA and lateral views of the chest COMPARISON: 04/21/2020 FINDINGS: The cardiomediastinal silhouette is stable. There is no pulmonary vascular congestion, focal consolidation, pleural effusion or pneumothorax. Procedure Note Bandar Santiago, DO - 05/20/2020 EXAMINATION: XR CHEST PA AND LATERAL (GENERIC) CLINICAL HISTORY: cough TECHNIQUE: PA and lateral views of the chest COMPARISON: 04/21/2020 FINDINGS: The cardiomediastinal silhouette is stable. There is no pulmonaryvascular congestion, focal consolidation, pleural effusion or pneumothorax. IMPRESSION No acute cardiopulmonary process. Thank you for letting us participate in the care of this patient. Forquestions regarding this report, please contact the number below. Aditya Gonzalez MD IMG DX ORDERABLES * (ABNORMAL) Rapid Drug Screen w/o Confirmation, Urine (05/20/2020 5:24 PM EDT) Barbiturates Screen, Urine None Detected None Detected [facility] Comment: The barbiturate screen detects [...] Benzodiazepines Screen, Urine Presumptive Pos(A) None Detected [facility] Comment: The benzodiazepines screen detects [...] Cocaine Screen, Urine None Detected None Detected [facility] Comment: The cocaine metabolites screen detects benzoylecgonine (Cocaine Metabolite) at concentrations >150 ng/mL. A ? Presumptive Positive? result indicates that the screening result was positive but has not yet been confirmed by a highly-specific method. As with any screen, occasional false positive results from cross-reacting substances may occur. Not for Medico-Legal Purposes. Methadone Metabolites Screen, Urine None Detected None Detected [facility] Comment: The methadone metabolite screen detects EDDP (major methadone metabolite) at concentrations >100 ng/mL. A ? Presumptive Positive? result indicates that the screening result was positive but has not yet been confirmed by a highly-specific method. As with any screen, occasional false positive results from cross-reacting substances may occur. Not for Medico-Legal Purposes. Opiate Screen, Urine None Detected None Detected [facility] Comment: The opiates screen detects [...] Cannabinoid Screen, Urine None Detected None Detected [facility] Comment: The marijuana metabolites screen detects the THC metabolite (87-nne-9-carboxy-delta 9-THC) at concentrations >20 ng/mL. A ? Presumptive Positive? result indicates that the screening result was positive but has not yet been confirmed by a highly-specific method. As with any screen, occasional false positive results from cross-reacting substances may occur. Not for Medico-Legal Purposes. Oxycodone Screen, Urine None Detected None Detected [facility] Comment: The oxycodone screen detects oxycodone and oxymorphone at concentrations >100 ng/mL. A ? Presumptive Positive? result indicates that the screening result was positive but has not yet been confirmed by a highly-specific method. As with any screen, occasional false positive results from cross-reacting substances may occur. Not for Medico-Legal Purposes. Buprenorphine Screen, Urine None Detected None Detected [facility] Comment: The buprenorphine screen detects buprenorphine at concentrations >5 ng/mL. A ? Presumptive Positive? result indicates that the screening result was positive but has not yet been confirmed by a highly-specific method. As with any screen, occasional false positive results from cross-reacting substances may occur. Not for Medico-Legal Purposes. Fentanyl Screen, Urine None Detected None Detected [facility] Comment: The fentanyl screen detects fentanyl at concentrations >2 ng/mL. A ? Presumptive Positive? result indicates that the screening result was positive but has not yet been confirmed by a highly-specific method. As with any screen, occasional false positive results from cross-reacting substances may occur. Not for Medico-Legal Purposes. Tricyclics Screen, Urine None Detected None Detected [facility] Comment: The tricyclics screen detects [...] Ethanol Screen, Urine None Detected None Detected [facility] Comment:This urine ethanol a ssay detects ethanol at concentrations >/= 100 mg/L. Amphetamines Screen, Urine None Detected None Detected [facility] Comment: The amphetamine screen detects d-amphetamine and d-methamphetamine at concentrations >300 ng/mL. A ? Presumptive Positive? result indicates that the screening result was positive but has not yet been confirmed by a highly-specific method. As with any screen, occasional false positive results from cross-reacting substances may occur. Not for Medico-Legal Purposes. Adulterants Screen, Urine None Detected None Detected [facility] Comment: No adulteration or dilution of this urine sample was detected. All urine samples submitted for urine drugs of abuse analysis are tested for creatinine concentration, pH, and for the presence of oxidants, nitrites, and chromate. Urine specimen (specimen) 05/20/2020 5:24 PM EDT 05/20/2020 6:06 PM EDT Narrative Resulting Agency Comment Spec In Lab Leo HARMON CHEMISTRY ORDERABLES Performing Organization Address [facility] Co de Phone Number [facility] [place] [address] * Rapid Drug Screen, Urine (DAVID Request) (05/20/2020 5:24 PM EDT) DAVID Conf Requested No [facility] DAVID Requested See Comment [facility] Comment:Refer to Rapid Drug Screen w/o Confirmation, Urine for results. Urine specimen (specimen) 05/20/2020 5:24 PM EDT 05/20/2020 6:06 PM EDT Narrative Resulting Agency Comment Spec In Lab Aditya Gonzalez MD URINE ORDERABLES Performing Organization Address [facility]/ZIP Co de Phone Number [facility] [place] [address] * Urinalysis with reflex Culture (05/20/2020 5:24 PM EDT) Glucose, Urine Dipstick Negative Negative mg/dL [facility] [...] [facility] pH, Urn (dipstick) 7.5 5.0 - 8.0 [facility] Blood, Urine Dipstick Negative Negative mg/dL [facility] Ketone, Urine Dipstick Negative Negative mg/dL [facility] Nitrite, Urine Dipstick Negative Negative [facility] Leukocytes, Urine Dipstick Negative Negative [facility] Appearance, Urine Dipstick Clear Clear [facility] Specific [place]lass Urine Automated 1.008 1.006 - 1.030 [facility] Color, Urine Dipstick Yellow Yellow [facility] Reflex to Culture No [facility] Urine specimen obtained by clean catch procedure (specimen) 05/20/2020 5:24 PM EDT 05/20/2020 6:06 PM EDT Narrative Resulting Agency Comment Spec In Lab Aditya Gonzalez MD URINE ORDERABLES [facility] [place] [address] * Red Tube Hold (05/20/2020 5:15 PM EDT) Red Hold Sample in lab. [facility] Blood specimen (specimen) Venous Draw / Unknown 05/20/2020 5:15 PM EDT 05/20/2020 5:31 PM EDT Leo HARMON CHEMISTRY ORDERABLES [facility] [place] [address] * Blue Tube HOLD (05/20/2020 5:15 PM EDT) [facility] Blue Hold Sample in lab. [facility] Blood specimen (specimen) Venous Draw / Unknown 05/20/2020 5:15 PM EDT 05/20/2020 5:30 PM EDT Leo HARMON HEMATOLOGY ORDERABLE S [facility] [place] [address] * Differential, Automated (05/20/2020 5:15 PM EDT) [facility] Neutrophil % 69.8 % [facility] Neutrophil Absolute 6.08 1.70 - 6.10 x10(3)/[facility] Lymph % 21.7 % [facility] Lymphocytes Abs 1.9 0.9 - 3.2 x10(3)/[facility] Monocyte % 7.2 % [facility] Monocyte Abs 0.6 0.3 - 0.9 x10(3)/[facility] Eos % 0.7 % [facility] Eosinophils Abs 0.1 0.0 - 0.4 x10(3)/[facility] Basophil % 0.3 % [facility] Baso Absolute 0.0 0.0 - 0.1 x10(3)/[facility] Immature Gran % 0.30 % [facility] Comment: Immature granulocytes(IG's)percentage and absolute count will include metamyelocytes, myelocytes, and promyelocytes. Blood smears from CBCs yielding IG's will be scanned manually for concordance. If this scan disagrees with the automated IG or if promyelocytes are noted, a manual differential will be performed. Immature Gran Absolute 0.03 0.00 - 0.04 x10(3)/[facility] Blood specimen (specimen) 05/20/2020 5:15 PM EDT 05/20/2020 5:30 PM EDT Narrative Resulting Agency Comment Spec In Lab Leo HARMON HEMATOLOGY ORDERABLE S [facility] [place] [address] * (ABNORMAL) Hemogram (05/20/2020 5:15 PM EDT) White Blood Cell 8.7 4.0 - 9.5 x10(3)/mc L [facility] Red Blood Cell 4.36 4.00 - 5.21 x10(6)/ L [facility] Hemoglobin 12.0 11.7 - 15.5 gm/dL [facility] Hematocrit 36.6 35.7 - 45.8 % [facility] Mean Cell Volume 83.9 82.6 - 94.4 fL [facility] Mean Cell Hemoglobin 27.5 27.1 - 32.0 pg [facility] Mean Cell Hemoglobin Concentration 32.8 31.7 - 35.0 gm/dL [facility] Platelet 215 145 - 357 x10(3)/ L [facility] RDW Standard Deviation 44.1 37.0 - 46.0 [facility] RDW coefficient of variation 14.4(H) 11.5 - 14.1 % [facility] Mean Platelet Volume 11.8 7.6 - 12.9 [facility] NRBC% auto 0.0 % [facility] NRBC Absolute 0.000 0.000 - 0.000 x10(3)/ L [facility] Blood specimen (specimen) 05/20/2020 5:15 PM EDT 05/20/2020 5:30 PM EDT Narrative Resulting Agency Comment Spec In Lab Leo HARMON HEMATOLOGY ORDERABLE S [facility] [place] [address] * Salicylate (05/20/2020 5:15 PM EDT) Salicylate <20 mg/L [facility] Comment: Therapeutic Range: ??< 200 mg/L Arthritic Therapy: ??150-300 mg/L Toxic: ?> 350 mg/L ??Concentrations > 500 mg/L may be an indication for alkalinization of urine. Concentrations > 800 mg/L are often an indication for hemodialysis. Blood specimen (specimen) 05/20/2020 5:15 PM EDT 05/20/2020 5:30 PM EDT Narrative Resulting Agency Comment Spec In Lab Aditya Gonzalez MD CHEMISTRY ORDERABLES Performing Organization Address [facility]/ZIP Co de Phone Number [facility] [place] [address] * (ABNORMAL) Acetaminophen level (05/20/2020 5:15 PM EDT) Acetamin Lvl <5(L) 10 - 30 mg/L [facility] Comment: Levels >150 mg/L at 4 hours post ingestion or >75 mg/L at 8 hours post ingestion are often an indication for N-Acetylcysteine. Blood specimen (specimen) 05/20/2020 5:15 PM EDT 05/20/2020 5:30 PM EDT Narrative Resulting Agency Comment Spec In Lab Aditya Gonzalez MD CHEMISTRY ORDERABLES Performing Organization Address [facility]/ZIP Co de Phone Number [facility] [place] [address] * Ethanol Level (05/20/2020 5:15 PM EDT) Ethanol <100 <=99 mg/L [facility] Comment: Greater than 800 mg/L (0.08%) should be considered intoxicated. 3400 to 4500 mg/L (0.34 - 0.45%) is considered severe intoxication. Greater than 5500 mg/L (0.55%) is usually fatal. Blood specimen (specimen) 05/20/2020 5:15 PM EDT 05/20/2020 5:30 PM EDT Narrative Resulting Agency Comment Spec In Lab Aditya Gonzalez MD CHEMISTRY ORDERABLES Performing Organization Address [facility] [place] [address] * TSH Adamant (05/20/2020 5:15 PM EDT) Thyroid Stimulating Hormone 1.16 0.27 - 4.20 mcIU/mL [facility] Blood specimen (specimen) 05/20/2020 5:15 PM EDT 05/20/2020 5:30 PM EDT Narrative Resulting Agency Comment Spec In Lab Aditya Gonzalez MD CHEMISTRY ORDERABLES Performing Organization Address [facility] Phone Number [facility] [place] [address] * Hepatic Function Panel (05/20/2020 5:15 PM EDT) Protein, Total 6.8 6.1 - 8.0 gm/dL [facility] Albumin 4.5 3.2 - 5.2 gm/dL [facility] Aspartate Aminotransferase 13 0 - 30 unit/L [facility] Alanine Aminotransferase 13 0 - 30 unit/L [facility] Alkaline Phosphatase 79 35 - 105 unit/L [facility] Bilirubin, Total 0.5 0.2 - 1.3 mg/dL [facility] Bilirubin, Direct 0.1 0.0 - 0.3 mg/dL [facility] Blood specimen (specimen) 05/20/2020 5:15 PM EDT 05/20/2020 5:30 PM EDT Narrative Resulting Agency Comment Spec In Lab Aditya Gonzalez MD CHEMISTRY ORDERABLES Performing Organization Address [facility] Co de Phone Number [facility] [place] [address] * Basic Metabolic Panel (non-fasting) (05/20/2020 5:15 PM EDT) Glucose 104 65 - 199 mg/dL [facility] Comment:Diabetes: >=200 mg/d L plus symptoms Blood Urea Nitrogen 10 8 - 18 mg/dL [facility] Creatinine 0.97 0.70 - 1.20 mg/dL [facility] Sodium 141 135 - 145 mmol/L [facility] Potassium 3.5 3.5 - 5.0 mmol/L [facility] Comment: Please note: ??Patients with WBC >100,000 may have falsely elevated Potassium levels. ??For accurate Potassium quantification in these patients send serum separator tube (gold top) for subsequent determinations. ??Contact the Clinical Chemistry Laboratory if there are any questions. Chloride 104 98 - 107 mmol/L [facility] Carbon Dioxide 23 22 - 31 mmol/L [facility] Anion Gap 14 5 - 15 mmol/L [facility] Calcium 8.9 8.5 - 10.5 mg/dL [facility] Est Glomerular Filtration Rate 76 >=60 mL/min/1. 73 m?? [facility] Comment: The eGFR was calculated using the CKD-EPI equation. As with all creatinine based estimates of kidney function, eGFR values calculated with the CKD-EPI equation are not accurate in patients with acute kidney failure, extremes of body mass or the acutely ill. [email or web address] eGFR 88 >=60 mL/min/1. 73 m?? [facility] Comment: The eGFR was calculated using the CKD-EPI equation. As with all creatinine based estimates of kidney function, eGFR values calculated with the CKD-EPI equation are not accurate in patients with acute kidney failure, extremes of body mass or the acutely ill. [email or web address] [place] Blood specimen (specimen) 05/20/2020 5:15 PM EDT 05/20/2020 5:30 PM EDT Narrative Resulting Agency Comment Spec In Lab Aditya Gonzalez MD CHEMISTRY ORDERABLES [facility] [place] [address] * POCT urine (05/20/2020 5:10 PM EDT) POC Urine HCG Negative Negative - Negative POC Control Internal Controls Acceptable 05/20/2020 5:10 PM EDT Aditya Gonzalez MD POINT OF CARE TEST O RDERABLES documented in this encounter Visit Diagnoses Diagnosis Suicidal ideation documented in this encounter Administered Medications Inactive Administered Medications - up to 3 most recent administrations Medication Order MAR Action Action Date Dose Rate Site diazePAM (Valium) tablet 5 mg 5 mg, Oral, ONCE, 1 dose, On 05/20/20 at 1937, STAT Given 05/20/2020 9:13 PM EDT 5 mg diazePAM (Valium) tablet 5 mg 5 mg, Oral, 4 TIMES DAILY, First dose on 05/20/20 at 2300, Until Discontinued, Routine Given 05/21/2020 6:20 PM EDT 5 mg Given 05/21/2020 1:48 PM EDT 5 mg Given 05/21/2020 9:06 AM EDT 5 mg diazePAM (Valium) tablet 5 mg 5 mg, Oral, EVERY 6 HOURS PRN, Starting on 05/21/20 at 2157, Until 05/22/20 at 1312, Anxiety, Routine Given 05/22/2020 5:07 AM EDT 5 mg diphenhydrAMINE/aluminum-magnesium hydroxide with simethicone/lidocaine (BMX) (6.67 mg-0.83 mg-13.33 mg-1.33 mg/mL) oral liquid 5 mL 5 mL, Oral, 2 TIMES DAILY, First dose on 05/20/20 at 2100, Until Discontinued, Each 5 mL contains equal parts of diphenhydramine (BENADYL), aluminum-magnesium hydroxide w/ simethicone (MAALOX), and lidocaine (XYLOCAINE) , Routine Given 05/22/2020 10:36 AM EDT 5 mLs Given 05/21/2020 9:11 PM EDT 5 mLs Given 05/21/2020 1:53 PM EDT 5 mLs guaiFENesin (Robitussin) (20 mg/mL) oral liquid 200 mg 200 mg, Oral, EVERY 4 HOURS PRN, Starting on 05/21/20 at 0024, Until Fri05/22/20 at 1312, Cough, Maximum daily dose is 2400 mg, Routine magnesium citrate oral liquid 296 mL 296 mL, Oral, DAILY PRN, Starting on 05/22/20 at 0513, Until Fri05/22/20 at 1312, Constipation, Routine Given 05/22/2020 5:28 AM EDT 296 mLs miconazole (MICOTIN) 2 % cream 1 each 1 each, Topical (Top), 2 TIMES DAILY, First dose on 05/20/20 at 2250, Until Discontinued Given 05/21/2020 9:10 PM EDT 1 each nicotine (NICODERM CQ) 14 mg/24 hr patch 14 mg 14 mg (1 patch), Transdermal, Administer over 24 Hours, DAILY, First dose on 05/20/20 at 2049, Until Discontinued, Routine Given 05/21/2020 9:09 PM EDT 14 mg 05- Back Upper (Left ) Given 05/20/2020 9:13 PM EDT 14 mg 03 - Shoulder (Left) nicotine (NICODERM CQ) 14 mg/24 hr patch Patch Removal Transdermal, DAILY, First dose on [place] 05/21/20 at 2048, Until Discontinued, Remove nicotine 14 mg/24 hr patch nicotine (NICODERM CQ) 14 mg/24 hr patch Patch Verification Transdermal, 2 TIMES DAILY, First dose on [place] 05/21/20 at 0848, Until Discontinued, Verify nicotine 14 mg/24 hr patch. nicotine polacrilex (NICORETTE) gum 2 mg 2 mg, Buccal, EVERY 2 HOURS PRN, Starting on 05/20/20 at 1857, Until 05/22/20 at 1312, Smoking cessation, Chew gum slowly. Do not swallow. Maximum of 48 mg/day., Routine Given 05/20/2020 9:12 PM EDT 2 mg ondansetron ODT (Zofran-ODT) disintegrating tablet 4 mg 4 mg, Oral, ONCE, 1 dose, On 05/20/20 at 1749, STAT Given 05/20/2020 5:49 PM EDT 4 mg ondansetron ODT (Zofran-ODT) disintegrating tablet 4 mg 4 mg, Oral, ONCE, 1 dose, On 05/22/20 at 1021, STAT Given 05/22/2020 10:36 AM EDT 4 mg polyethylene glycoL (Miralax) packet 17 g 17 g, Oral, DAILY, First dose on 05/21/20 at 1349, Until Discontinued, Routine Given 05/21/2020 1:53 PM EDT 17 g senna (Senokot) tablet 8.6 mg 8.6 mg, Oral, DAILY, First dose on 05/21/20 at 1724, Until Discontinued, Routine Given 05/21/2020 6:20 PM E DT 8.6 mg documented in this encounter Active and Recently Administered Medications Times are shown in EDT. Scheduled Medication Order 05/20/2020 05/21/2020 05/22/2020 diazePAM (Valium) tablet 5 mg (COMPLETED) 5 mg, Oral, ONCE, 1 dose, On 05/20/20 at 1937, STAT 2112 (Given - Provider: Lexie Davila RN) diazePAM (Valium) tablet 5 mg (CANCELED) 5 mg, Oral, 4 TIMES DAILY, First dose on 05/20/20 at 2300, Until Discontinued, Routine 2300 (Due) 0906 (Given - Provider: Shannon Duran RN)1348 (Given - Provider: Shannon Duran RN)1820 (Given - Provider: Shannon Duran RN)2100 (Hold - Provider: Jasmin Guerin NRP - Reason: Patient/family refused) diphenhydrAMINE/aluminum -magnesium hydroxide with simethicone/lidocaine (BMX) (6.67 mg-0.83 mg-13.33 mg-1.33 mg/mL) oral liquid 5 mL 5 mL, Oral, 2 TIMES DAILY, First dose on 05/20/20 at 2100, Until Discontinued, Each 5 mL contains equal parts of diphenhydramine (BENADYL), aluminum-magnesium hydroxide w/ simethicone (MAALOX), and lidocaine (XYLOCAINE) , Routine 0907 (Given - Provider: Shannon Duran RN)1353 (Given - Provider: Shannon Duran RN)2111 (Given - Provider: Jasmin Guerin NRP) 1036 (Given - Provider: Dariela Morris RN) miconazole (MICOTIN) 2 % cream 1 each 1 each, Topical (Top), 2 TIMES DAILY, First dose on 05/20/20 at 2250, Until Discontinued 2249 (Due) 0900 (Not Given - Provider: Shannon Duran RN - Reason: Patient/family refused)2109 (Given - Provider: Jasmin Guerin NRP) 0900 (Due) nicotine (NICODERM CQ) 14 mg/24 hr patch 14 mg(Linked Group 1) 14 mg (1 patch), Transdermal, Administer over 24 Hours, DAILY, First dose on 05/20/20 at 2048, Until Discontinued, Routine 2112 (Given - Provider: Lexie Davila RN) 2108 (Given - Provider: Jasmin Guerin NRP) 1036 (Not Given - Provider: Dariela Morris RN - Reason: Contraindicated - Comment: dose due at 2099) nicotine (NICODERM CQ) 14 mg/24 hr patch Patch Removal(Linked Group 1) Transdermal, DAILY, First dose on 05/21/20 at 2047, Until Discontinued, Remove nicotine 14 mg/24 hr patch 2047 (Patch Removed - Provider: Jasmin Guerin NRP) 899 (Due) nicotine (NICODERM CQ) 14 mg/24 hr patch Patch Verification(Linked Group 1) Transdermal, 2 TIMES DAILY, First dose on 05/21/20 at 0848, Until Discontinued, Verify nicotine 14 mg/24 hr patch. 0848 (Patch (dose and location) verified - Provider: Shannon Duran RN)2099 (Patch (dose and location) verified - Provider: Jasmin Guerin NRP) 0900 (Due) ondansetron ODT (Zofran-ODT) disintegrating tablet 4 mg (COMPLETED) 4 mg, Oral, ONCE, 1 dose, On 05/20/20 at 1749, STAT 1749 (Given - Provider: Kaila Day RN) ondansetron ODT (Zofran-ODT) disintegrating tablet 4 mg (COMPLETED) 4 mg, Oral, ONCE, 1 dose, On 05/22/20 at 1021, STAT 1036 (Given - Provid er: Dariela Morris RN) polyethylene glycoL (Miralax) packet 17 g 17 g, Oral, DAILY, First dose on 05/21/20 at 1349, Until Discontinued, Routine 1353 (Given - Provider: Shannon Duran RN) 0900 (Not Given - Provider: aDriela Morris RN - Reason: See comment - Comment: Pt. having loose stools after mag citrate last night) senna (Senokot) tablet 8.6 mg 8.6 mg, Oral, DAILY, First dose on 05/21/20 at 1724, Until Discontinued, Routine 1820 (Given - Provider: Shannon Duran RN) 0900 (Not Given - Provider: Dariela Morris RN - Reason: See comment - Comment: Pt. having loose stools after mag citrate last night) PRN Medication Order 05/20/2020 05/21/2020 05/22/2020 diazePAM (Valium) tablet 5 mg 5 mg, Oral, EVERY 6 HOURS PRN, Starting on 05/21/20 at 2157, Until Fri05/22/20 at 1312, Anxiety, Routine 0507 (Given - Provid er: Jasmin Guerin NRP) guaiFENesin (Robitussin) (20 mg/mL) oral liquid 200 mg 200 mg, Oral, EVERY 4 HOURS PRN, Starting on 05/21/20 at 0024, Until Fri05/22/20 at 1312, Cough, Maximum daily dose is 2400 mg, Routine magnesium citrate oral liquid 296 mL 296 mL, Oral, DAILY PRN, Starting on 05/22/20 at 0513, Until Fri05/22/20 at 1312, Constipation, Routine 0528 (Given - Provid er: Jasmin Guerin NRP) nicotine polacrilex (NICORETTE) gum 2 mg 2 mg, Buccal, EVERY 2 HOURS PRN, Starting on 05/20/20 at 1857, Until 05/22/20 at 1312, Smoking cessation, Chew gum slowly. Do not swallow. Maximum of 48 mg/day., Routine 2112 (Given - Provider: Lexie Davila RN) Linked Groups Order Group 1: nicotine (NICODERM CQ) 14 mg/24 hr patch 14 mgJump to med 14 mg (1 patch), Transdermal, Administer over 24 Hours, DAILY, First dose on 05/20/20 at 2048, Until Discontinued, Routine And nicotine (NICODERM CQ) 14 mg/24 hr patch Patch VerificationJump to med Transdermal, 2 TIMES DAILY, First dose on 05/21/20 at 0848, Until Discontinued, Verify nicotine 14 mg/24 hr patch. And nicotine (NICODERM CQ) 14 mg/24 hr patch Patch RemovalJump to med Transdermal, DAILY, First dose on 05/21/20 at 2047, Until Discontinued, Remove nicotine 14 mg/24 hr patch documented in this encounter
--- OUTSIDE RECORDS SUMMARY | 2024-09-20 11:16 | XMS_ITS | Encounter Summary ---
Author Organization [facility] [place] [address] Care Team Providers Care Stadium Attendant Name Role Phone Unavailable Primary Care Provider Unavailabl e Encounter Details Date Type Department Care Team (Late st Contact Info) Description 03/30/2019 3:25 PM EDT [facility]illary [facility] [place] [address] Social History Tobacco Use Types Packs/Day Years [...] AM EST Routine Obstetrics [place] [address] Emili Cabrera MD [facility] [place] [address] 09/26/2024 6:00 PM EST Appointment [facility] [place] [address] 10/16/2024 Hospital Encounter Birthing [facility] [place] [address] Dudley Aguilar MD [facility] DR OBSTETRICS [place] [address] 11/08/2024 10:00 AM EST Hospital Encounter Non-Invasive Cardiology [place] [address] Arrived documented as of this encounter Procedures Procedure Name Priority Date/Time Associated Diagnosis Comments XR CHEST PA AND LATERAL STAT 03/30/2019 4:05 PM EDT documented in this encounter Results [...] please contact the number below. ? Narrative 03/30/2019 4:11 PM EDT EXAMINATION: XR [...] this report, please contact the number below. Vazquez Ruiz MD IMG DX ORDERABLES documented in this encounter Visit Diagnoses Not on filedocumented in this encounter
--- OUTSIDE RECORDS SUMMARY | 2024-09-20 11:16 | XMS_ITS | Encounter Summary ---
Author Organization [facility] [place] [address] Care Team Providers Care Law Office Receptionist Name Role Phone Unavailable Primary Care Provider Unavailabl e Encounter Details Date Type Department Care Team (Late st Contact Info) Description 04/21/2019 5:15 PM EDT Ancillary Procedure Radiology [place] [address] Social History Tobacco Use Types Packs/Day Years [...] AM EST Routine Obstetrics [place] [address] Emili Cabrera MD [facility] MATERNAL [place] [address] 09/26/2024 6:00 PM EST Appointment [facility] [place] [address] 10/16/2024 [facility] [place] [address] Dudley Aguilar MD [facility] DR OBSTETRICS [place] [address] 11/08/2024 10:00 AM EST Hospital Encounter Non-Invasive Cardiology Lab [facility] [place] [address] Arrived documented as of this encounter Procedures Procedure Name Priority Date/Time Associated Diagnosis Comments XR HAND MIN 3 VIEWS RIGHT STAT 04/21/2019 5:34 PM EDT documented in this encounter Results * XR Hand Min 3 views Right (Generic) (04/21/2019 5:34 PM EDT) Anatomical Region Laterality Modality Hand Right Digital Radiogra phy Impressions 04/21/2019 5:43 PM EDT No acute fracture or dislocation. Thank you for letting us participate in the care of this patient. For questions regarding this report, please contact the number below. ? Narrative 04/21/2019 5:43 PM EDT EXAMINATION: XR HAND MIN 3 VIEWS RIGHT (GENERIC) CLINICAL HISTORY: trauma Use Pb shield on abd TECHNIQUE: 3 views RIGHT hand COMPARISON: 01/09/2018 FINDINGS: No fracture, dislocation or other acute traumatic finding is seen. Again noted is mild flexion of the fifth PIP joint. Procedure Note Binh Diaz MD - 04/21/2019 EXAMINATION: XR HAND MIN 3 VIEWS RIGHT (GENERIC) CLINICAL HISTORY: trauma Use Pb shield on abd TECHNIQUE: 3 views RIGHT hand COMPARISON: 01/09/2018 FINDINGS: No fracture, dislocation or other acute traumatic finding is seen. Againnoted is mild flexion of the fifth PIP joint. IMPRESSION No acute fracture or dislocation. Thank you for letting us participate in the care of this patient. Forquestions regarding this report, please contact the number below. Vazquez Ruiz MD IMG DX ORDERABLES documented in this encounter Visit Diagnoses Not on filedocumented in this encounter
--- OUTSIDE RECORDS SUMMARY | 2024-09-20 11:16 | XMS_ITS | Encounter Summary ---
Author Organization [facility] Address [facility] [place] [address] Care Team Providers Care Correspondence School Instructor Name Role Phone Unavailable Primary Care Provider Unavailabl e Reason for Referral * Consultation (Routine) - Closed Specialty Diagnoses / Procedures Referred By Contac t Referred To Contact Sleep Center Diagnoses Snoring Procedures PRG POLYSOM 6+ YRS SLEEP W 4+ ADDL EFRAIN ATTMary Herndon MD [facility] [place] [address] [facility] Sleep Medicine [address] [place] [address] Referral ID Status Reason Start Date Expiration Date V isits Requested Visits Authorized [id number] Closed Test Only 07/09/2019 01/06/2020 1 1 Reason for Visit * Consultation (Routine) - Closed Specialty Diagnoses / Procedures Referred By Contac t Referred To Contact Sleep Center Diagnoses Snoring Witnessed apneic spells Non-restorative sleep Morning headache Excessive daytime sleepiness Essential hypertension Anxiety and depression Gastroesophageal reflux disease, esophagitis presence not specified Procedures PRG HOME SLEEP TEST TYPE 3 PORTABLE Emili Walton APRN [facility] [place] [address] [facility] Sleep Medicine [address] [place] [address] Referral ID Status Reason Start Date Expiration Date V isits Requested Visits Authorized [id number] Closed Test Only 04/08/2019 04/07/2020 1 1 Encounter Details Date Type Department Care Team (Late st Contact Info) Description 05/05/2019 4:00 PM EDT Procedure visit Sleep [facility] [address] [place] [address] Mary Kovacs MD [facility] [address] [place] [address] Snoring (Primary Dx) Social History Tobacco Use Types [...] as of this encounter Progress Notes * Mary Kovacs MD - 05/05/2019 4:00 PM EDT Images from the original note were not included. REPORT OF DIAGNOSTIC HOME SLEEP TEST IDENTIFYING INFORMATION Aniya Luque : 1985 PRIMARY CARE PHYSICIAN: Lakhwinder Rust MD History Of Present Illness: Aniya Luque is a 33 y.o. female who presents for a polysomnogram. Limited Polysomnography: The recording includes chest/abdominal respiratory effort, nasal pressure air flow, snoring and oxygen saturation (by pulse oximeter). Comment: - Respiratory: CORKY 4% of 4 was noted with a minimum saturation of 86%. Mean saturation of 92%. 2 minutes spent with a saturation less than or equal to 88%. - Cardiac: Heart rate ranged from 45 to 78 bpm with an average heart rate of 60 bpm. - Other: Total recording time of 375 minutes. Assessment: Ms. Aniya Luque is a 33 y.o. female whose home sleep test was non-diagnostic for obstructive sleep apnea. The home sleep apnea testing format can underestimate the overall severity of sleep disordered breathing. In the setting of ongoing suspicion, an in lab polysomnogram is recommended. Recommendations: 1. In lab diagnostic polysomnogram * I called Aniya at her indicated preferred number and left a message regarding these results. I asked her to call my office to book the next study. Mary Kovacs MD [facility] HOME SLEEP APNEA TEST REPORT Patient Name: Aniya Luque Study Date: 05/05/2019 Age & Sex: 33 y.o. Female Height: 5'4 Date of : 1985 Weight: 159 BMI: 27.3 Referring Prov.: Scoring Tech: TRENA MCCONNELLGT Sleep Fellow: Sleep Specialist: General Test Details Type III home sleep apnea testing was performed utilizing nasal pressure, single thoracoabdominal movement, heart rate, and oxygen saturation according to established AASM guidelines. Recording Start Time: 23:48:12 Monitoring Start Time: 23:48:11 Recording End Time: 06:03:12 Monitoring End Time: 06:03:12 Total Recording Time (TRT): 375.0 minutes Monitoring Time (MT): 375.0 minutes Respiratory Details Respiratory Event Total Count Index (events/hr) Obstructive apnea 5 0.8 Mixed apnea 0 0.0 Central apnea 3 0.5 Sum of all apnea types 8 1.3 Hypopneas without associated desaturation 4 0.6 Hypopneas with desaturation >=4% (CMS) 16 2.6 4% Respiratory Event Index (4%CORKY): 3.8 *Includes the sum of all apneas and hypopneas (assoc. with desaturation of >=4%) per hour of monitoring. 4% AHI (CMS): 3.8 *Includes the sum of all apneas and hypopneas (assoc. with desaturation of >=4%) per hour of monitoring. Manuel-Cazares Breathin.0% of total monitoring time Minimum SpO2: 86% Average SpO2 (during TRT): 92% SpO2 <= X%: Total Time <=90% 24.9 min <=89% 4.1 min <=88% 2.0 min SpO2 Ranges: Total Time 90%-99% 342.5 min 80%-90% 4.1 min 70%-80% 0.0 min 60%-70% 0.0 min 0%-60% 0.0 min Cardiac Details Minimum Heart Rate 45 bpm Maximum Heart Rate 78 bpm Average Heart Rate 60 bpm Graphs Time Scale Respiratory Event Graph SpO2 Trend documented in this encounter Plan of Treatment Upcoming Encounters Date Type Department Care Team (Late st Contact Info) Description 09/21/2024 8:15 AM EST Routine Obstetrics [place] [address] Emili Cabrera MD [facility] MATERNAL [place] [address] 09/26/2024 6:00 PM EST Appointment [facility] [place] [address] 10/16/2024 [place] [address] Dudley Aguilar MD [facility] DR OBSTETRICS [place] [address] 11/08/2024 10:00 AM EST Hospital Encounter Non[place] [address] Arrived Scheduled Referrals Name Type Priority Associated Diagnoses Orde r Schedule Referral to Sleep Disorders Center Outpatient Referral Routine Snoring Ordered: 05/14/2019 documented as of this encounter Visit Diagnoses Diagnosis Snoring- Primary Other dyspnea and respiratory abnormality documented in this encounter
--- OUTSIDE RECORDS SUMMARY | 2024-09-20 11:16 | XMS_ITS | Encounter Summary ---
Author Organization [facility] Address [facility] [place] [address] Care Team Providers Care Territory Manager General Sales Name Role Phone Unavailable Primary Care Provider Unavailabl e Encounter Details Date Type Department Care Team (Latest Contact Info) Description 11/03/2020 10:22 PM EST - 11/03/2020 11:59 PM [facility] Hospital [place] [phone] Discharge Disposition: Home Social History Tobacco Use [...] Take 1 tablet by mouth as needed. esomeprazole (NexIUM) 20 mg Capsule, Delayed Release(E.C.) TAKE 1 CAPSULE BY MOUTH ONCE DAILY FOR 30 DAYS 10/30/2020 11/14/2021 famotidine (Pepcid) 40 mg Tablet TAKE 1 TABLET BY MOUTH ONCE DAILY 10/19/2020 11/16/2021 sucralfate (Carafate) 1 gram Tablet TAKE 1 TABLET BY MOUTH TWICE DAILY ON AN EMPTY STOMACH 10/11/2020 08/12/2023 diazePAM (Valium) 5 mg Tablet Take 1 [...] AM EST Routine Obstetrics [place] [phone] Emili Cabrera MD [facility] [place] [address] 09/26/2024 6:00 PM EST Appointment [facility] [place] [address] 10/16/2024 Hospital [place] [phone] Dudley Aguilar MD [facility] OBSTETRICS [place] [address] 11/08/2024 10:00 AM EST Hospital Encounter Non-Invasive Cardiology Lab [place] [address] Arrived documented as of this encounter Procedures Procedure Name Priority Date/Time Associated Diagnosis Comments COVID-19 PCR Routine 11/03/2020 10:30 AM EST documented in this encounter Results * COVID-19 PCR (11/03/2020 10:30 AM EST) SARS-CoV-2 RNA Not Detected Not Detected [facility] Comment: This result should be interpreted in combination with the clinical observations, patient history and epidemiological information in making a final diagnosis. For testing of asymptomatic individuals, assay performance characteristics and clinical utility have not been evaluated. Testing for SARS-CoV-2 (Severe acute respiratory syndrome coronavirus 2, formerly known as 2019 novel coronavirus or 2019-nCoV) to aid in the diagnosis of COVID-19 is performed using the el? RealTime SARS-CoV-2 Assay as authorized by the FDA Emergency Use Authorization (EUA). This EUA assay is intended for In-vitro Diagnostic (IVD) use with respiratory specimens such as nasopharyngeal swabs collected from individuals during the acute phase of infection. This assay is performed based on the instructions for use provided by [employer] and additional guidance provided by CDC and FDA. Testing is performed in the [facility] within the Department of Pathology and Laboratory Medicine at [facility], certified under the Clinical Laboratory Improvement Amendments of 1988 (CLIA), 42 U.S.C. 263a, to perform high complexity tests. Assay performance has been verified according to clinical laboratory regulatory requirements for use with specimens collected from individuals suspected of COVID-19. Test results are provided above. A result of ? Not Detected? indicates that the viral RNA target is not present above the limit of detection, but does not preclude SARS-CoV-2 infection. False negative results may occur if a specimen is improperly collected, transported or handled; if amplification inhibitors are present; or if inadequate numbers of viral particles are present in the specimen. When a diagnostic test is negative, the possibility of a false negative result should be considered in the context of a patient? s recent exposures and the presence of clinical signs and symptoms consistent with COVID-19. A result of ? Detected? indicates that RNA from SARS-CoV-2 was detected and the patient is infected. As required or requested by public health authorities, positive specimens may be sent for additional testing. Positive and negative predictive values for this test are highly dependent on disease prevalence. A result of ? Invalid? indicates that neither the viral RNA targets nor the internal control target was detected. An invalid result suggests the presence of inhibitors. Recollection and re-testing is recommended in the case of an invalid result. CDC COVID-19 criteria for testing on human specimens and clinical management guidance information are available at the CDC Coronavirus Disease 2019 (COVID-19) webpage under ? Information for Healthcare Professionals? (https://www.cdc.gov/coronavirus/2019-ncov/hcp/index.html) Additional information about this and other EUA tests can be found in provider and patient fact sheets at the following FDA website: https://www.fda.gov/medical-devices/vkzwqefjhlz-luhupmm-0299-gamnz-73-vgigbdqjz- use-a exrlcngfufmbm-jrgcjhm-zpzyuvq/bivrh-ejaulgaxtwm-fzhn SARS-CoV-2 RNA Source Nasal [facility] Specimen from nose (specimen) Other / Unknown 11/03/2020 10:30 AM EST 11/04/2020 1:33 AM EST Narrative Resulting Agency Comment Spec In Lab Romana Ramsey MD MOLECULAR ORDERABLES [facility] [place] [address] documented in this encounter Visit Diagnoses Not on filedocumented in this encounter
--- OUTSIDE RECORDS SUMMARY | 2024-09-20 11:16 | XMS_ITS | Encounter Summary ---
Author Organization [facility] Address [facility] [place] [address] Care Team Providers Care Forestry Patrolman Name Role Phone Unavailable Primary Care Provider Unavailabl e Encounter Details Date Type Department Care Team (Late st Contact Info) Description 01/09/2021 11:45 AM EDT - 01/09/2021 12:15 PM EDT Surgery [place] [address] Dudley Alva MD [facility] [place] [address] EGD, UPPER GI ENDOSCOPY (WRVU 2.09) Social History Tobacco Use Types Packs/Day Years [...] Sign Reading Time Taken Comments Blood Pressure 126/77 01/09/2021 11:05 AM EDT Pulse 100 01/09/2021 11:05 AM EDT Temperature 37 ??C (98.6 ??F) 01/09/2021 11:05 AM EDT Respiratory Rate 18 01/09/2021 11:05 AM EDT Oxygen Saturation 98% 01/09/2021 11:05 AM EDT Inhaled Oxygen Concentration - - Weight 72.6 kg (160 lb) 01/09/2021 11:05 AM EDT Height 162.6 cm (5' 4) 01/09/2021 11:05 AM EDT Body Mass Index 27.46 01/09/2021 11:05 AM EDT documented in this encounter Discharge Instructions * Discharge Instructions* Lula Navarro RN - 01/09/2021 1:11 PM EDT Upper GI Endoscopy: What to Expect at Home Your Recovery You will be able to go home after your doctor or nurse checks to make sure you are not having any problems. You may have to stay overnight if you had treatment during the test. You may have a sore throat fora day or two after the test. This care sheet gives you a general idea about what to expect after the test. How can you care for yourself at home? Activity Rest when you feel tired. ?? You can do your normal activities when it feels okay to do so. Diet ?? Follow your doctor's directions for eating. ?? Unless your doctor has told you not to, drink plenty of fluids. This helps to replace the fluidsthat were lost during the prep. ?? Do not drink alcohol. Medicines ?? Your doctor will tell you if and when you can restart your medicines. He or she will also give you instructions about taking any new medicines. ?? If you take blood thinners, such as warfarin (Coumadin), clopidogrel (Plavix), or aspirin, be sure to talk to your doctor. He or she will tell you if and when to start taking those medicines again. Make sure that you understand exactly what your doctor wants you to do. ?? If polyps were removed or a biopsy was done during the test, your doctor may tell you not to take aspirin or other anti-inflammatory medicines for a few days. These include ibuprofen (Advil, Motrin) and naproxen (Aleve). ?? If you have a sore throat the day after the procedure, use an rsvc-rao-ahdpthl spray to numb your throat. Sucking on throat lozenges and gargling with warm salt water may also help relieve your symptoms. Other instructions ?? For your safety, do not drive or operate machinery until the medicine wears off and you can think clearly. Your doctor may tell you not to drive or operate machinery until the day after your test. ?? Do not sign legal documents or make major decisions until the medicine wears off and you can think clearly. The anesthesia can make it hard for you to fully understand what you are agreeing to. Additional Information for Sedation Patients For patients who received sedation: ?? You may have received medications before and/or during your procedure which effects your judgement and reaction time. ?? Do not drive, operate machinery, drink alcoholic beverages or make important decisions for 24 hours. ?? Be careful on stairs as you may be unsteady on your feet. ?? You may eat a regular diet as tolerated. ?? Do not smoke if you are alone. ?? IV site: Slight redness or tenderness is normal, you can use a warm compress if you would like. If tenderness and/or redness increase or if foul drainage occurs, please contact your Doctor. Please call [phone] before 8pm Mon-Fri with problems, questions or concerns. If you call after 8pm or on weekends, call the Hospital at [phone] and ask to speak to the Production Supervisor glass vial bending conveyor feeder and the railroad signal operator will contact that person for you. When should you call for help? Call [phone] anytime you think you may need emergency care. For example, call if: ?? You passed out (lost consciousness). ?? You pass maroon or bloody stools. ?? You have trouble breathing. Call your doctor now or seek immediate medical care if: ?? You have pain that does not get better after you take pain medicine. ?? You are sick to your stomach or cannot drink fluids. ?? You have new or worse belly pain. ?? You have blood in your stools. ?? You have a fever. ?? You cannot pass stools or gas. Watch closely for changes in your health, and be sure to contact your doctor if you have any problems. Where can you learn more? myD- View your After Visit Summary and more online at [email or web address] If you would like to provide feedback about your hospital experience, please call the Office of Patient and Family Relations at . If you have received this After Visit Summary in error, please immediately return it in person to the department, or notify the [facility] Privacy Office by calling toll free at between the hours of 8AM and 5PM to arrange for our retrieval of the documents at no cost to you. Content Version: 12.2 ?? 4050-4316 [email or web address]. Care instructions adapted under license by [facility]. If you have questions about a medical condition or this instruction, always ask your healthcare professional. [email or web address] disclaims any warranty or liability for your use of this information. documented in this encounter Medications at Time [...] Take 1 tablet by mouth as needed. mag/aluminum/sod bicarb/alginc (GAVISCON ORAL) Take by mouth. [...] daily. 02/13/2022 documented as of this encounter H&P Notes * Dudley Alva MD - 01/09/2021 12:37 PM EDT Patient Name: Aniya Luque Patient Age: 35 y.o. Birthdate: 1985 Admit date: 01/09/2021 Attending Physician: Dudley Alva MD Gastroenterology and Hepatology Pre-Procedure History and Physical Exam Procedure: EGD: Indication: GERD Patient Active Problem List Diagnosis Code ??? Anxiety F41.9 ??? Depression F32.9 ??? Asthma J45.909 ??? Hypertension I10 ??? Tachycardia R00.0 ??? Skin disease L98.9 ??? Chest pain R07.9 ??? Anxiety disorder, unspecified F41.9 ??? Borderline personality disorder F60.3 ??? Post-traumatic stress disorder, chronic F43.12 ??? Gastroesophageal reflux disease K21.9 EXAM: HEENT: Airway examined, oropharynx clear Mallampati Score: I (soft palate, uvula, fauces, tonsillar pillars visible) LUNGS: Clear to auscultation HEART: Regular rate and rhythm, normal S1, S2 ABDOMEN: Normal bowel sounds, soft, non tender, non distended, A/P Proceed with the planned endoscopic procedure. ASA 2 - Patient with mild systemic disease with no functional limitations Sedation Plan: moderate (conscious sedation) Risks and benefits of the procedure explained to the patient. Consent signed. documented in this encounter Miscellaneous Notes * Op Note - Dudley Alva MD - 01/09/2021 12:51 PM EDT [facility] [place] Patient Name: Aniya Luque : [id number] MR#: [id number] Case Date: 01/09/2021 Surgeon: Surgeon(s) and Role: * Dudley Alva MD - Primary Preoperative diagnosis: GERD Postoperative diagnosis: * No post-op diagnosis entered * Procedure(s): EGD, UPPER GI ENDOSCOPY Please see Provation report for details. documented in this encounter Plan of Treatment Upcoming Encounters Date Type Department Care Team (Late st Contact Info) Description 09/21/2024 8:15 AM EST Routine Obstetrics [place] [address] Emili Cabrera MD [facility] [place] [address] 09/26/2024 6:00 PM EST Appointment [facility] [place] [address] 10/16/2024 [place] [address] Dudley Aguilar MD [facility] DR OBSTETRICS [place] [address] 11/08/2024 10:00 AM EST Hospital Encounter Non-Invasive [place] [address] Arrived documented as of this encounter Procedures Procedure Name Priority Date/Time Associated Diagnosis Comments SURGICAL PATHOLOGY REPORT Routine 01/09/2021 1:02 PM EDT SPECIMEN TO PATHOLOGY Routine 01/09/2021 1:02 PM EDT Upper GI Endoscopy, Diagnostic (95841) 01/09/2021 12:37 PM EDT Gastroesophageal reflux disease, unspecified whether esophagitis present UPPER GI ENDOSCOPY Routine 01/09/2021 12 :22 PM EDT documented in this encounter Results * Surgical Pathology Report (01/09/2021 1:02 PM EDT) Final Diagnosis [id number] ? Location: 4T; EA07; A The signing pathologist has (i) examined the relevant preparation(s) for the specimen(s) and (ii) rendered or confirmed the diagnosis(es). . ?Surgical Pathology DIAGNOSIS Mid esophagus, ??biopsy: Esophageal squamous mucosa, within normal limits. Electronically signed by: ??Michael LOUISE PhD, Alem Verified: ??01/12/2021 ?Pathologist Performed at: ??-[facility] [place]. [place], [place], [place] SPECIMEN(S) SUBMITTED A - mid esophagus r/o EoE, biopsy (Multiple) CLINICAL INFORMATION 35-year-old female GERD sx's SPECIMEN PROCESSING A - Labeled/Fixativ e: Mid esophagus R/O EoE, formalin. Quantity/Size: Four, averaging 0.2 cm. Tissue Description: Soft, translucent pink-finley to barker-white tissues. Sections/Proces sing: Submitted en toto ??in 1 cassette labeled A1. ??shb 01/12/2021 4:08 PM EDT [facility] GI Biopsy 01/09/2021 1:02 PM EDT 01/09/2021 1:02 PM EDT Dudley Alva MD PATHOLOGY/CYTOLOGY O RDERABLES [facility] [place] [address] * Specimen to Pathology (01/09/2021 1:02 PM EDT) AP Specimen 01/09/2021 1:02 PM EDT 01/09/2021 1:02 PM EDT Narrative [facility] - 01/09/2021 1:02 PM EDT Specimen requisition ordered. ??Separate Pathology report to follow Dudley Alva MD PATHOLOGY/CYTOLOGY O RDERABLES Performing Organization Address [facility] [place] [address] * UPPER GI ENDOSCOPY (01/09/2021 12:22 PM EDT) UPPER GI ENDOSCOPY [facility] Endoscopy Procedure Date: 01/09/2021 12:22 PM ? Patient Name: Aniya Luque ? N: [id number] ? Date of : 1985 ? Age: 35 ? Order #: [id number] ? Instrument Name: [id number] ? Procedure: ? Upper GI endoscopy Indications: ? Heartburn Patient Profile: ? 35 yo F with GERD presents for EGD. Providers: ? Dudley Alva, Hardeep Wagner, ? Brandie Rutledge Referring MD: ?Lakhwinder Chencarine Medicines: ? Midazolam 3 mg IV, Fentanyl 100 ? micrograms IV, Benzocaine spray Complications: ? No immediate complications. Procedure: ? Pre-Anesthesia Assessment: ? - Prior to the procedure, a History ? and Physical was performed, and ? patient medications and allergies ? were reviewed. The patient is ? competent. The risks and benefits of ? the procedure and the sedation ? options and risks were discussed with ? the patient. All questions were ? answered and informed consent was ? obtained. Patient identification and ? proposed procedure were verified by ? the physician, the nurse and the ? hematology technician in the pre-procedure area ? in the endoscopy suite. Mental Status ? Examination: alert and oriented. ? Airway Examination: normal ? oropharyngeal airway and neck ? mobility. Respiratory Examination: ? clear to auscultation. CV ? Examination: normal. Prophylactic ? Antibiotics: The patient does not ? require prophylactic antibiotics. ? Prior Anticoagulants: The patient has ? taken no previous anticoagulant or ? antiplatelet agents. ASA Grade ? Assessment: II - A patient with mild ? systemic disease. After reviewing the ? risks and benefits, the patient was ? deemed in satisfactory condition to ? undergo the procedure. The anesthesia ? plan was to use moderate sedation / ? analgesia (conscious sedation). ? Immediately prior to administration ? of medications, the patient was ? re-assessed for adequacy to receive ? sedatives. The heart rate, ? respiratory rate, oxygen saturations, ? blood pressure, adequacy of pulmonary ? ventilation, and response to care ? were monitored throughout the ? procedure. The physical status of the ? patient was re-assessed after the ? procedure. ? The procedure, indications, benefits, ? risks and alternatives were explained ? to the patient. Specifically ? discussed were potential ? complications including, but not ? limited to, bleeding, perforation, ? infection, missing a cancer, and ? adverse medication reactions. The ? Endoscope was introduced through the ? and advanced to the third part of ? duodenum. The patient tolerated the ? procedure well. The upper GI ? endoscopy was accomplished without ? difficulty. The patient tolerated the ? procedure well. ? Findings: ? The examined esophagus was normal. Mid-esophagus ? biopsies were obtained to evaluate for eosinophilic ? esophagitis. ? The Z-line was regular and was found 40 cm from the ? incisors. ? The entire examined stomach was normal. ? The examined duodenum was normal. ? Moderate Sedation: ? Moderate (conscious) sedation was administered by the ? endoscopy nurse and supervised by the endoscopist. ? The following parameters were monitored: oxygen ? saturation, heart rate, blood pressure, and response ? to care. ? I was present during the intraservice time as ? documented by the sedation RN. Impression: ?- Normal esophagus. ? - Z-line regular, 40 cm from the ? incisors. ? - Normal stomach. ? - Normal examined duodenum. Recommendation: ?- Patient has a contact number ? available for emergencies. The signs ? and symptoms of potential delayed ? complications were discussed with the ? patient. Return to normal activities ? tomorrow. Written discharge ? instructions were provided to the ? patient. ? - Await pathology results. ? - Return to referring physician as ? previously scheduled. ? Procedure Code(s): ?? --- Professional --- ? 66550, Esophagogastroduod enoscopy, ? flexible, transoral; diagnostic, ? including collection of specimen(s) ? by brushing or washing, when ? performed (separate procedure) CPT copyright 2019 [employer]. All rights reserved. The codes documented in this report are preliminary and upon outpatient coder review may be revised to meet current compliance requirements. Attending Participation: ? I personally performed the entire procedure. ? _ Dudley Alva, 01/09/2021 1:12:09 PM Number of Addenda: 0 Note Initiated On: 01/09/2021 12:22 PM [employer]OVATION 01/09/2021 12:2 2 PM EDT Lakhwinder Rust MD GENERAL SURGIC AL ORDERABLES [employer] documented in this encounter Visit Diagnoses Diagnosis Gastroesophageal reflux disease- Primary Esophageal reflux Gastroesophageal reflux disease, unspecified whether esophagitis present documented in this encounter Administered Medications Inactive Administered Medications - up to 3 most recent administrations Medication Order MAR Action Action Date Dose Rate Site benzocaine (Hurricane One) Mucosal spray 20% (restricted to shyanne-procedural use) ONCE PRN, Starting on 01/09/21 at 1239, Until 01/09/21 at 1547, Intra-Operative (Intra-Procedure) Given 01/09/2021 12:39 PM EDT 1 spray fentaNYL (pf) (50 mcg/mL) multi-dose injection ONCE PRN, Starting on 01/09/21 at 1242, Until 01/09/21 at 1547, Intra-Operative (Intra-Procedure), Routine Given 01/09/2021 12:50 PM EDT 50 mcg Given 01/09/2021 12:42 PM EDT 50 mcg lactated ringers infusion 100 mL/hr, Intravenous, CONTINUOUS, Starting on e 01/09/21 at 1130, Until Tu01/09/21 at 1329, Endoscopy (Day of Procedure) New Bag 01/09/2021 11:15 AM EDT 100 mL/hr 100 mL/hr midazolam (pf) (Versed) (1 mg/mL) multi-dose injection ONCE PRN, Starting on e 01/09/21 at 1242, Until 01/09/21 at 1547, Intra-Operative (Intra-Procedure), Routine Given 01/09/2021 12:50 PM EDT 1 mg Given 01/09/2021 12:46 PM EDT 1 mg Given 01/09/2021 12:42 PM EDT 1 mg documented in this encounter Active and Recently Administered Medications Times are shown in EDT. Continuous Medication Order 01/07/2021 01/08/2021 01/09/2021 lactated ringers infusion (CANCELED) 100 mL/hr, Intravenous, CONTINUOUS, Starting on 01/09/21 at 1130, Until 01/09/21 at 1329, Endoscopy (Day of Procedure) 1115 (New Bag - Prov ider: Michael Renae RN) PRN Medication Order 01/07/2021 01/08/2021 01/09/2021 benzocaine (Hurricane One) Mucosal spray 20% (restricted to shyanne-procedural use) (CANCELED) ONCE PRN, Starting on Fri01/09/21 at 1239, Until Fri01/09/21 at 1547, Intra-Operative (Intra-Procedure) 1239 (Given - Provid er: Hardeep Wagner RN) fentaNYL (pf) (50 mcg/mL) multi-dose injection (CANCELED) ONCE PRN, Starting on Fri01/09/21 at 1242, Until Fri01/09/21 at 1547, Intra-Operative (Intra-Procedure), Routine 1242 (Given - Provid er: Hardeep Wagner RN)1250 (Given - Provider: Hardeep Wagner RN) midazolam (pf) (Versed) (1 mg/mL) multi-dose injection (CANCELED) ONCE PRN, Starting on Fri01/09/21 at 1242, Until Fri01/09/21 at 1547, Intra-Operative (Intra-Procedure), Routine 1242 (Given - Provid er: Hardeep Wagner RN)1246 (Given - Provider: Hardeep Wagner RN)1250 (Given - Provider: Hardeep Wagner RN) documented in this encounter
--- OUTSIDE RECORDS SUMMARY | 2024-09-20 11:16 | XMS_ITS | Encounter Summary ---
Author Organization [facility] [place] [address] Care Team Providers Care Auditor Medical Claims Name Role Phone Unavailable Primary Care Provider Unavailabl e Encounter Details Date Type Department Care Team (Late Contact Info) Description 11/02/2020 Telephone [place] [phone] Eugene Ohara Social History Tobacco Use Types Packs/Day Years [...] encounter Miscellaneous Notes * Telephone Encounter - Eugene Ohara - 11/02/2020 11:25 AM EST The GI Telehealth Educate Team attempted to contact patient to check their readiness for their upcoming telehealth visit in GI. We were unable to reach the patient and left a message. Jocelyn Ohara Patient Experience Navigator Section of Gastroenterology and Hepatology documented in this encounter Plan of Treatment Upcoming Encounters Date Type Department Care Team (Late st Contact Info) Description 09/21/2024 8:15 AM EST Routine Obstetrics [place] [phone] Emili Cabrera MD [facility] [place] [address] 09/26/2024 6:00 PM EST Appointment [facility] [place] [phone] 10/16/2024 Hospital [place] [phone] Dudley Aguilar MD [facility] DR OBSTETRICS [place] [address] 11/08/2024 10:00 AM EST Hospital Encounter Non-Invasive [place] [phone] Arrived documented as of this encounter Visit Diagnoses Not on filedocumented in this encounter
--- OUTSIDE RECORDS SUMMARY | 2024-09-20 11:16 | XMS_ITS | Encounter Summary ---
Author Organization [facility] [place] [address] Care Team Providers Care Evaluation Engineer Name Role Phone Unavailable Primary Care Provider Unavailabl e Encounter Details Date Type Department Care Team (Late st Contact Info) Description 01/04/2021 Telephone [place] [phone] Shana Trujillo, CCMA Social History Tobacco Use Types Packs/Day Years [...] encounter Miscellaneous Notes * Telephone Encounter - Shana Trujillo - 01/04/2021 3:26 PM EDT Aniya Luque [id number] Diagnosis/Indication: 1. Do you take any blood thinners or have you been diagnosed with a bleeding disorder that increases your risk of bleeding with procedures? No 2. Do you have a Pacemaker or Defibrillator device? No 3. Are you a diabetic? No 4. Do you have any Allergies to Eggs, Latex or Medications? Yes: in chart 5. Do you take any Oral Iron Supplements (Including multi-vitamins)? Yes (Iron) 6. Do you have a history of three or more abdominal surgeries? No 7. Have you had a problem with sedation or anesthesia? No 8. Do you use a c-pap machine or oxygen tank? Neither 9. Do you take prescription narcotic pain medications, including suboxone or methodone? No 10. Do you have a preference regarding the gender of your provider? No Preference 11. Is there any other information you would like to us to note for the provider and nursing team who will perform your case? No 12. Say to patient: You must have a responsible democrat who will drive you to your procedure, stay [place] for the entire duration of your procedure, and drive you home from your procedure? *Please Verify the height and weight, and adjust if height and/or weight have changed* Estimated body mass index is 25.18 kg/m?? as calculated from the following: Height as of 05/22/20: 167.6 cm (5' 6). Weight as of 05/22/20: 70.8 kg (156 lb). *Delete if not needed* Height: 5'6 Weight: 156 BMI: 25.18 Age:35 y.o. documented in this encounter Plan of Treatment Upcoming Encounters Date Type Department Care Team (Late st Contact Info) Description 09/21/2024 8:15 AM EST Routine Obstetrics [place] [address] Emili Cabrera MD [facility] [place] [address] 09/26/2024 6:00 PM EST Appointment [facility] [place] [phone] 10/16/2024 Hospital [place] [phone] Dudley Aguilar MD [facility] [place] [address] 11/08/2024 10:00 AM EST Hospital Encounter [place] [address] Arrived documented as of this encounter Visit Diagnoses Not on filedocumented in this encounter
--- OUTSIDE RECORDS SUMMARY | 2024-09-20 11:16 | XMS_ITS | Encounter Summary ---
Author Organization [facility] [place] [address] Care Team Providers Care Appraiser Timber Name Role Phone Unavailable Primary Care Provider Unavailabl e Reason for Visit * Reason Onset Date Comments Prior Authorization 05/31/2020 Pending auth # [id number] Encounter Details Date Type Department Care Team (Late st Contact Info) Description 05/31/2020 [place] [address] Agnieszka Pendleton Prior Authorization (Pending auth # [id number]) Social History Tobacco Use Types Packs/Day Years [...] encounter Miscellaneous Notes * Telephone Encounter - Agnieszka Pendleton - 05/31/2020 2:52 PM EDT ??? Insurance Verified: [place] ??? Insurance Effective To/From Dates: 05/22/20 - Current ??? Third Green Party Vendor: NA ??? Authorization number: [id number] ??? Validity Dates: Pending ??? Date of Service: 05/22/20 ??? CPT/Description: ER IPI Psych Admit ??? ICD-10/Description: Anxiety disorder, unspecified [F41.9] ??? Ordering Provider: Charline Gonzalez ??? Patient Class: IPI ??? How many days approved: Pending ??? Call Reference Number: NA ??? Spoke With: NA ? Financially Cleared: YES ??? PSC Insurance Contact Information ??? PSC Insurance Name: NA ??? Insurance ??? Insurance ??? Additional Clinical Required Y/N?: Y ??? Patient Class Change Requirements: NA ??? Notes - Include any additional documentation if provided: Faxed reservation,auth request form and H & P Notes. 06/01/20 PC to f/u on pending auth and spoke with Baldev Carey who stated still pending. He believes this could be because they need the d/c summary. I will fax that now. Pending auth # [id number]. documented in this encounter Plan of Treatment Upcoming Encounters Date Type Department Care Team (Late st Contact Info) Description 09/21/2024 8:15 AM EST Routine Obstetrics [place] [address] Emili Cabrera MD [facility] [address] [place]ERNAL [place] [address] 09/26/2024 6:[address] [facility] [place] [phone] 10/16/2024 Hospital [place] [phone] Dudley Aguilar MD [facility] DR OBSTETRICS [place] [address] 11/08/2024 10:00 AM EST Hospital Encounter [place] [address] Arrived documented as of this encounter Visit Diagnoses Not on filedocumented in this encounter
--- OUTSIDE RECORDS SUMMARY | 2024-09-20 11:16 | XMS_ITS | Encounter Summary ---
Author Organization [facility] Address [facility] [place] [address] Care Team Providers Care Cafe Aide Name Role Phone Unavailable Primary Care Provider Unavailabl e Reason for Visit * Reason Comments Chest Pain Shortness of Breath Hypertension Encounter Details Date Type Department Care Team (Late st Contact Info) Description 04/23/2021 6:53 PM EDT - 04/23/2021 8:21 PM EDT Emergency Emergency Services at [address] [phone] Ddaa Rodriges MD [facility] [place] [address] Palpitations; Hypertension, unspecified type; Anxiety Discharge Disposition: Home Social History Tobacco Use [...] Sign Reading Time Taken Comments Blood Pressure 130/72 04/23/2021 8:00 PM EDT Pulse 66 04/23/2021 8:00 PM EDT Temperature 36.6 ??C (97.9 ??F) 04/23/2021 6:57 PM ED T Respiratory Rate 22 04/23/2021 8:00 PM EDT Oxygen Saturation 97% 04/23/2021 8:00 PM EDT Inhaled Oxygen Concentration - - Weight 72.6 kg (160 lb) 04/23/2021 6:57 PM EDT Height - - Body Mass Index 27.46 01/09/2021 11:05 AM EDT documented in this encounter Discharge Instructions * Discharge Instructions* Dada Rodriges MD - 04/23/2021 8:07 PM EDT If you have worsening chest pain, trouble breathing or other concerning symptoms come back to the emergency department. Otherwise follow-up with your regular doctor for further care. * Attachments The following attachments cannot be sent through Care Everywhere. * Palpitations (Bhutanese) documented in this encounter Medications at Time [...] as of this encounter Progress Notes * Phyllis Martinez RCP - 04/23/2021 7:18 PM EDTSummary: ECG Paged for EC ECG completed: 1900 documented in this encounter ED Notes * Dada Rodriges MD - 04/23/2021 7:58 PM EDT ED Attending Note HPI: Aniya Luque is a 35 y.o. female who presents to the Emergency Department with a history of anxiety and hypertension both of which are medically managed. Since earlier today she states that she has had some sensation of her heart beating quickly however denies vladimir concurrent chest pain and noradiating pain. During this episode she additionally took her blood pressure which was noted to be high and given her history of high blood pressure she was concerned that this may be causing her to have problems therefore she presents to the ER to be reevaluated. She takes Klonopin up to 3 times aday and took her last dose approximately 6 hours ago. Denies any associated shortness of breath. Additionally states she is having vaginal discharge similar to prior yeast infections that she has had. Review of Systems Pertinent positives and negatives are included in the HPI, otherwise at least ten systems were reviewed and negative. Past Medical and Surgical Histories, Social History, Medications, Allergies were reviewed in the chart. Vitals: slight hypertension ED Triage Vitals [04/23/21 1857] BP: 153/84 Heart Rate: 74 Resp: 20 Temp: 36.6 ??C (97.9 ??F) Temp src: Temporal SpO2: 98 % O2 Device: RA O2 Flow Rate (L/min): n/a Physical Exam Constitutional: Appearance: No acute distress, calm, cooperative HENT: Head: Normocephalic and atraumatic. MMM Neck: Normal range of motion. Neck supple. Cardiovascular: Rate and Rhythm: Normal rate and regular rhythm. Pulses: Normal pulses. Pulmonary: Effort: Pulmonary effort is normal. No respiratory distress. No audible wheeze Abdominal: General: There is no distension. Abdomen is soft without guarding; no focal tenderness Musculoskeletal: General: Normal range of motion. No edema noted Skin: General: Skin is warm and dry. Capillary refill < 2 seconds; no rash noted Neurological: Speech is fluent. No obvious focal neurologic deficit Psychiatric: Patient has a normal mood and affect. ED Course: I have reviewed labs and imaging, images and available reports, and they are significant for: Hemoglobin with mild anemia. Electrolytes are unremarkable and troponin is negative Last 3 wbc, hgb, hct plt Recent Labs 04/23/211909 WBC 8.6 HGB 10.9* HCT 34.2* PLATELET 229 Last 3 Lytes Recent Labs 04/23/211909 NA 138 K 4.2 CL 105 CO2 24 BUN 17 CREATININE 1.06 GLUCOSE 92 Last 3 Trop, ProBNP, CK Recent Labs 04/23/211909 TROPONINT <0.01 I reviewed the EKG tracing: Rhythm: Normal sinus rhythm at a rate of [address] segment elevation or depression. Intervals are unremarkable. Assessment and Plan: 35 y.o. female with hypertension and sense of heart racing which has been intermittent today and exacerbating her underlying hypertension and anxiety. She has been taking Klonopin for her anxiety andat this time does not feel anxious. Clinically symptoms are not suggestive of ACS, PE, aortic pathology. Dehydration or electrolyte abnormality are a consideration. Dysrhythmia is also a consideration. On reevaluation the patient's electrolytes are unremarkable, troponin is negative, TSH is unremarkable. Patient is feeling somewhat better after GI cocktail and I had a lengthy discussion with the patient regarding acute changes in blood pressure versus chronic blood pressure problems. She will follow up with her primary care doctor for better blood pressure control and further care. Did this case involve critical care? No [...] concerns. she agrees with thefollow- up plan. Dada Rodriges MD 04/23/212005 * Yasemin Aguirre RN - 04/23/2021 7:03 PM EDT Patient states she takes 0.5mg clonopin up to three times daily prn. Last dose approx 12p today documented in this encounter Miscellaneous Notes * ED Triage - Yasemin Aguirre RN - 04/23/2021 6:59 PM EDT Patient states she has medial chest pain and a sore left arm. States BP at home has been greater than 170 systolic and heart rate has been between 100-120 at home. Patient has a hx of hypertension and anxiety states she has been using medications as prescribed. Alert and oriented x4. Patient Vitals for the past 24 hrs: Temp Pulse Resp BP SpO2 O2 Device 04/23/21 1857 36.6 ??C (97.9 ??F) 74 20 153/84 98 % RA HPI (Adult) Stated Reason for Visit: high BP, sharp mid chest pain, left ar, pain History Obtained From: patient Duration (Days): 3 documented in this encounter Plan of Treatment Upcoming Encounters Date Type Department Care Team (Late st Contact Info) Description 09/21/2024 8:15 AM EST Routine Obstetrics [place] [address] Emili Cabrera MD [facility] DR [place]ERNAL [place] [address] 09/26/2024 6:[address] [facility] [place] [address] 10/16/2024 Hospital Encounter Birthing [facility] [place] [address] Dudley Aguilar MD [facility] DR OBSTETRICS [place] [address] 11/08/2024 10:00 AM EST Hospital Encounter Non-[place] [address] Arrived documented as of this encounter Procedures Procedure Name Priority Date/Time Associated Diagnosis Comments URINALYSIS WITH REFLEX CULTURE STAT 04/23/2021 7:41 PM EDT HC THYROID STIMULATING HORMONE, SERUM STAT 04/23/2021 7:10 PM EDT HEMOGRAM STAT 04/23/2021 7:10 PM EDT DIFFERENTIAL, AUTOMATED STAT 04/23/2021 7:10 PM EDT HC CBC,PLT & AUTO DIFF STAT 7:10 PM EDT HC TROPONIN T STAT 04/23/2021 7:10 PM EDT COMPREHENSIVE METABOLIC PANEL STAT 04/23/2021 7:10 PM EDT EKG 12-LEAD STAT 04/23/2021 7:01 PM EDT POCT URINE STAT 04/23/2021 documented in this encounter Results * (ABNORMAL) Urinalysis with reflex Culture (04/23/2021 7:41 PM EDT) Glucose, Urine Dipstick Negative Negative [facility] [...] [facility]AT[facility] Blood, Urine Dipstick Negative Negative [facility] Ketone, Urine Dipstick Trace(A) Negative LABORATORY Nitrite, Urine Dipstick Negative Negative [facility] Leukocytes, Urine Dipstick Negative Negative [facility] Appearance, Urine Dipstick Clear Clear LABORATORY Specific [place] Urine Automated 1.025 1.006 - 1.030 LAB[facility] Color, Urine Dipstick Yellow Yellow [facility] Reflex to Culture No LABORATORY Clean Catch Urine 04/23/2021 7:41 PM EDT 04/23/2021 8:49 PM EDT Narrative Resulting Agency Comment Spec In Lab Dada Rodriges MD URINE ORDERABLES Performing Organization Address City/State/[facility] Co de Phone Number [facility] [address] [place] [address] * Differential, Automated (04/23/2021 7:10 PM EDT) Neutrophil % 52.2 % [facility] Neutrophil Absolute 4.46 1.70 - 6.10 x10(3)/mcL [facility] Lymph % 33.8 % [facility] Lymphocytes Abs 2.9 0.9 - 3.2 x10(3)/mcL [facility] Monocyte % 8.5 % [facility] Monocyte Abs 0.7 0.3 - 0.9 x10(3)/mcL [facility] Eos % 4.7 % LAB[facility]ORY Eosinophils Abs 0.4 0.0 - 0.4 x10(3)/mcL [facility] Basophil % 0.6 % LAB[facility] Baso Absolute 0.0 0.0 - 0.1 x10(3)/mcL [facility] Immature Gran % 0.20 % LABORATORY Comment: Immature granulocytes(IG's)percentage and absolute count will include metamyelocytes, myelocytes, and promyelocytes. Blood smears from CBCs yielding IG's will be scanned manually for concordance. If this scan disagrees with the automated IG or if promyelocytes are noted, a manual differential will be performed. Immature Gran Absolute 0.02 0.00 - 0.04 x10(3)/mcL [facility] Blood 04/23/2021 7:10 PM EDT 04/23/2021 7:24 PM EDT Narrative Resulting Agency Comment Spec In Lab Dada Rodriges MD HEMATOLOGY ORDERABLE S [facility] [address] [place] [address] * (ABNORMAL) Hemogram (04/23/2021 7:10 PM EDT) White Blood Cell 8.6 4.0 - 9.5 x10(3)/mc L [facility] Red Blood Cell 4.12 4.00 - 5.21 x10(6)/mc L [facility] Hemoglobin 10.9(L) 11.7 - 15.5 gm/dL LAB[facility] Hematocrit 34.2(L) 35.7 - 45.8 % LAB[facility] Mean Cell Volume 83.0 82.6 - 94.4 fL LAB[facility] Mean Cell Hemoglobin 26.5(L) 27.1 - 32.0 pg LAB[facility] Mean Cell Hemoglobin Concentration 31.9 31.7 - 35.0 gm/dL LAB[facility] Platelet 229 145 - 357 x10(3)/mc L [facility] RDW Standard Deviation 48.2(H) 37.0 - 46.0 fL [facility] RDW coefficient of variation 15.6(H) 11.5 - 14.1 % [facility] Mean Platelet Volume 11.1 7.6 - 12.9 fL [facility] Blood 04/23/2021 7:10 PM EDT 04/23/2021 7:24 PM EDT Narrative Resulting Agency Comment Spec In Lab Dada Rodriges MD HEMATOLOGY ORDERABLE S Performing Organization Address City/[facility]/ZIP Co de Phone Number [facility] [address] [place] [address] * TSH Dent (04/23/2021 7:10 PM EDT) Thyroid Stimulating Hormone 1.97 0.27 - 4.20 mcIU/mL [facility] Blood 04/23/2021 7:10 PM EDT 04/23/2021 7:24 PM EDT Narrative Resulting Agency Comment Spec In Lab Dada Rodriges MD CHEMISTRY ORDERABLES Performing Organization Address [facility] Co de Phone Number [facility] [address] [place] [address] * Troponin (04/23/2021 7:10 PM EDT) Troponin-T <0.01 0.00 - 0.00 ng/mL [facility] Blood 04/23/2021 7:10 PM EDT 04/23/2021 7:24 PM EDT Narrative Resulting Agency Comment Spec In Lab Dada Rodriges MD CHEMISTRY ORDERABLES Performing Organization Address [facility] Co de Phone Number [facility] [address] [place] [address] * Comprehensive metabolic panel (non-fasting) (04/23/2021 7:10 PM EDT) Pathologist [facility] Glucose 92 65 - 199 mg/dL LABORATORY Comment:Diabetes: >=200 mg/d L plus symptoms Blood Urea Nitrogen 17 8 - 18 mg/dL LAB[facility] Creatinine 1.06 0.70 - 1.20 mg/dL [facility] Sodium 138 135 - 145 mmol/L LAB[facility] Potassium 4.2 3.5 - 5.0 mmol/L LABORATORY Comment: Please note: ??Patients with WBC >100,000 may have falsely elevated Potassium levels. ??For accurate Potassium quantification in these patients send serum separator tube (gold top) for subsequent determinations. ??Contact the Clinical Chemistry Laboratory if there are any questions. Chloride 105 98 - 107 mmol/L LABORATORY Carbon Dioxide 24 22 - 31 mmol/L [facility] Anion Gap 9 5 - 15 mmol/L [facility] Calcium 9.1 8.5 - 10.5 mg/dL [facility] Protein, Total 6.7 6.1 - 8.0 gm/dL [facility] Albumin 4.2 3.2 - 5.2 gm/dL [facility] Aspartate Aminotransferase 13 0 - 30 unit/L [facility] Alanine Aminotransferase 14 0 - 30 unit/L [facility] Alkaline Phosphatase 74 35 - 105 unit/L LAB[facility] Bilirubin, Total 0.2 0.2 - 1.3 mg/dL LAB[facility] Est Glomerular Filtration Rate 67 >=60 mL/min/1. 73 m?? LABORATORY Comment: This patient? s estimated glomerular filtration rate (eGFR) is between 67 mL/min/1.73 m2 (patients with less muscle mass per kg body weight) and 78 mL/min/1.73 m2 (patients with more muscle mass [...] and symptoms in addition to eGFR. Blood 04/23/2021 7:10 PM EDT 04/23/2021 7:24 PM EDT Narrative Resulting Agency Comment Spec In Lab Dada Rodriges MD CHEMISTRY ORDERABLES Performing Organization Address City/[facility] Co de Phone Number [facility] [address] [place] [address] * EKG 12 Lead (04/23/2021 7:01 PM EDT) Ventricular rate 69 BPM MUSE SYSTEM Atrial Rate 69 BPM MUSE SYSTEM P-R Interval 118 ms MUSE SYSTEM QRS Duration 84 ms MUSE SYSTEM Q-T Interval 400 ms MUSE SYSTEM QTC Calculated (Bezet) 428 ms MUSE SYSTEM Calculated P [place] 28 degrees MUSE SYSTEM Calculated R [place] 19 degrees MUSE SYSTEM Calculated T [place] 26 degrees MUSE SYSTEM INTERPRETATION Normal sinus rhythm Normal ECG When compared with ECG of 30-MAR-2019 14:59, No significant change was found Confirmed by MD Levi, Wyatt ([id number]) on 04/24/2021 9:32:23 AM MUSE SYSTEM 04/23/2021 7:01 PM EDT 04/24/2021 9:32 AM EDT Dada Rodriges MD ECG ORDERABLES Performing Organization Address City/[facility] Co de Phone Number MUSE SYSTEM * POCT urine (04/23/2021) POC Urine HCG Negative Negative - Negative POC Control Internal Controls Acceptable 04/23/2021 Narrative Authorizing Provider Result Zane Rodriges MD POINT OF CARE TEST O RDERABLES documented in this encounter Visit Diagnoses Diagnosis Palpitations Hypertension, unspecified type Anxiety Anxiety state, unspecified documented in this encounter Administered Medications Inactive Administered Medications - up to 3 most recent administrations Medication Order MAR Action Action Date Dose Rate Site alum-mag hydroxide-simeth (Maalox) (40 mg-40 mg-4 mg/mL) oral liquid 20 mL 20 mL, Oral, ONCE, 1 dose, On Fri04/23/21 at 1925, STAT Given 04/23/2021 7:33 PM EDT 20 mLs fluconazole (Diflucan) tablet 150 mg 150 mg, Oral, ONCE, 1 dose, On Fri04/23/21 at 1942, DO NOT SPLIT, CRUSH OR OPEN, STAT, Indication for (Active or Suspected): Other (See comment) Given 04/23/2021 8:06 PM EDT 150 mg documented in this encounter Active and Recently Administered Medications Times are shown in EDT. Scheduled Medication Order 04/21/2021 04/22/2021 04/23/2021 alum-mag hydroxide-simeth (Maalox) (40 mg-40 mg-4 mg/mL) oral liquid 20 mL (COMPLETED) 20 mL, Oral, ONCE, 1 dose, On Fri04/23/21 at 1925, STAT 1933 (Given - Provid er: Yasemin Aguirre RN) fluconazole (Diflucan) tablet 150 mg (COMPLETED) 150 mg, Oral, ONCE, 1 dose, On Fri04/23/21 at 1942, DO NOT SPLIT, CRUSH OR OPEN, STAT, Indication for (Active or Suspected): Other (See comment) 2005 (Given - Provid er: Yasemin Aguirre RN) documented in this encounter
--- OUTSIDE RECORDS SUMMARY | 2024-09-20 11:16 | XMS_ITS | Encounter Summary ---
[facility] [place] [address] Care Team Providers Care Regulatory Compliance Coordinator Name Role Phone Unavailable Primary Care Provider [...] TEST TYPE 3 PORTABLE Emili Walton APRN [facility] [place] [place] [address] [facility] [address] [place] [address] Referral ID Status Reason Start Date Expiration Date V isits Requested Visits Authorized [id number] Closed Test Only 04/08/2019 04/07/2020 1 1 Reason for Visit * Consultation (Routine) - Specialty Diagnoses / Procedures Referred By Contac t Referred To Contact Sleep Center Diagnoses snoring Lakhwinder Rust MD [address] [place] [address] [facility] Sleep [facility] [address] [place] [address] Referral ID Status Reason Start Date Expiration Date V isits Requested Visits Authorized [id number] Consult, Test & Treat Connection Center 03/22/2019 03/21/2020 3 3 Encounter Details Date Type Department Care Team (Late st Contact Info) Description 04/08/2019 11:00 AM EDT Office Visit Sleep Center at [facility] [address] [place] [address] Emili Walton APRN [facility] [place] [place] [address] Snoring; Witnessed apneic spells; Non-restorative sleep; Morning headache; Excessive daytime sleepiness; Essential hypertension; Anxiety and depression; Gastroesophageal reflux disease, esophagitis presence not specified; Bruxism; Cigarette nicotine dependence with other nicotine-induced disorder Social History Tobacco Use Types Packs/Day Years [...] Sign Reading Time Taken Comments Blood Pressure 154/90 04/08/2019 10:58 AM EDT pcp is aware of b/p increase Pulse 100 04/08/2019 10:58 AM EDT Temperature - - Respiratory Rate - - Oxygen Saturation 99% 04/08/2019 10: 58 AM EDT Inhaled Oxygen Concentration - - Weight 72.1 kg (159 lb) 04/08/2019 10:5 8 AM EDT Height 162.6 cm (5' 4) 04/08/2019 10:5 8 AM EDT Body Mass Index 27.29 04/08/2019 10:58 AM EDT documented in this encounter Progress Notes * Emili Walton APRN - 04/08/2019 11:00 AM EDT Sleep Medicine Consultation Note CC:Aniya Luque is a 33 y.o. female seen at the request of Lakhwinder Sepulveda MD for advice regarding possible YOON. HPI: She occasionally has trouble falling asleep and some nights if she wakes to urinate can have trouble falling back to sleep. Some nights she doesn't wake at all. Takes 25 mg of doxepin at HS for depression not for sleep. Her boyfriend of 4 months notes loud snoring and periods of apnea. No other bedpartner has mentioned either to her in the past. The last 2 nights she wakes choking but has never done that before. Has a dx of GERD. She never wakes feeling refreshed and is very sleepy during the day. She take minipress 1 mg TID for HTN. She feels worse after she naps. She dozes off talking to her boyfriend or while sitting quietly at home. She has felt sleepy while driving but no close calls or accidents. She has anxiety and depression, ? bi-polar. She grinds her teeth at night and needs a new mouth guard. She is very anxious about her sleep and has had a few bad nights recently due to the high anxiety. She reports no problems with sleep as a child. HX: HTN, anxiety/depression, ? bi polar, allergies, asthma, smoker, bruxism, GERD H/O substance abuse Sleep Pattern: Bed/Recliner/Wedge: flat bed with 1 pillow, prefers to sleep supine or L lateral Bedtime: varies between 9-11p due to family obligations Lights out: same as bedtime Latency: generally within 20 minutes, sometimes can take 1 hour Awakenings: 0-3 times Reason: to urinate Duration: can be up for one hour, pattern for years Wake time: 4:3-5 am, earlier than desired, never treated for insomnia, has significant anxiety Rise time: same as wake time Respiratory: Snoring: yes, loudly times unknown period of time. Not sure what makes it better or worse. Observed Apneas: yes Mouth Breathing: not sure Dry Mouth: both day and night Nocturnal choking: yes but only last 2 nights Nasal Obstruction: + chronic sinus congestion, allergy meds don't help Daytime Symptoms: Coral: Patient-reported last 4 scores: [facility] 04/08/2019 [facility] Sleep 12 (High Risk) Insomnia Severity Index 18 (Moderately severe insomnia) Upon Awakening: never wakes feeling refreshed no matter how much sleep she gets times years. Naps: yes, feels worse after the nap Involuntary Dozing: yes, talking to boyfriend or sitting quietly at home Driving: yes Close calls related to sleepiness no Accidents related to sleepiness no Other Associates Sleep Symptoms: Parasomnias: Sleep Walking: no Dream Enactment: no Motor: RLS: no PLMS: no Used to wear a manager night for bruxism but she needs a new one. H/O TMJ. Narcolepsy: Hallucinations: sometimes sees a woman in her bedroom Paralysis: no Cataplexy: no Medications: Current Outpatient Medications: ??? diazePAM (VALIUM) 5 mg Tablet, Take 5 mg by mouth daily as needed., Disp: , Rfl: 0 ??? lisinopril (PRINIVIL;ZESTRIL) 10 mg Tablet, Take 10 mg by mouth daily., Disp: , Rfl: 2 ??? [id number] 0.18/0.215/0.25 mg-25 mcg Tablet, Take 1 tablet by mouth daily., Disp: , Rfl: ??? prazosin (MINIPRESS) 1 mg Capsule, Take 1 mg by mouth 3 times daily., Disp: , Rfl: ??? albuterol 90 mcg/actuation HFA Aerosol Inhaler, Inhale 2 puffs into the lungs every 4 hours as needed for Wheezing. Use with spacer, Disp: , Rfl: ??? doxepin (SINEQUAN) 25 mg Capsule, Take 25 mg by mouth., Disp: , Rfl: ??? aspirin 81 mg Tablet, Delayed Release (E.C.), Take 81 mg by mouth daily., Disp: , Rfl: ??? diphenhydrAMINE (BENADRYL) 25 mg Capsule, Take 25 mg by mouth every 6 hours as needed., Disp: ,Rfl: ??? calcium carbonate (TUMS) 200 mg calcium (500 mg) Tablet, Chewable, Take 1 tablet by mouth as needed., Disp: , Rfl: ??? acetaminophen (TYLENOL) 500 mg Tablet, Take 1,000 mg by mouth every 6 hours as needed., Disp: ,Rfl: Minipress is to treat HTN. Doxepin is to treat depression per pt. Benadryl is for allergies. Past Medical History: Active Ambulatory Problems Diagnosis Date Noted ??? Anxiety 08/03/2014 ??? Depression 08/03/2014 ??? Asthma 08/03/2014 ??? Hypertension 08/03/2014 ??? Tachycardia 08/03/2014 ??? Skin disease 03/24/2015 ??? Chest pain 01/17/2016 Resolved Ambulatory Problems Diagnosis Date Noted ??? No Resolved Ambulatory Problems Past Medical History: Diagnosis Date ??? Anorexia ??? Anxiety 08/03/2014 ??? Asthma 08/03/2014 ??? Flaherty's palsy ??? Chest pain 01/17/2016 ??? Depression ??? Headache ??? Hypertension 08/03/2014 Social History: Living situation: lives alone Employment: not working Alcohol: no Smoking: yes, 0.5-1 ppd times 19 years Caffeine: yes, 2 bottles of pepsi per day Other drugs: not currently Family History: Family history of sleep disorders: no ROS: CON: weight change: no major changes ENT: nasal obstruction: see HPI PUL: WILDE: yes CV: chest pain: yes, h/o with negative cardiac work up in the past Palpitations: h/o tachycardia ? related to anxiety LE edema: yes GI: GERD: yes, takes TUMS : Nocturia: some nights MSK: Pain: sometimes NEURO: sleep related headaches: yes, 3 times per week times many years ALL: yes, takes Benadryl ENDO: no DM or thyroid dz PSY: Depression: yes, semi controlled on meds Anxiety: yes, not well controlled PE: BP 154/90 (BP Location (NBP): Right arm) Comment: pcp is aware of b/p increase Pulse 100 Ht 162.6 cm (5' 4) Wt 72.1 kg (159 lb) LMP 04/01/2019 (Approximate) SpO2 99% BMI 27.29 kg/m?? General: NAD Eyes: conjunctiva clear ENT: oropharynx MP: 3/4 Crowded: no Mandibular structure and position: normal NECK: Submental fat present: no Neck Size: 14.5 inches Supple, no LAD LUNGS: respirations even and unlabored, CTAB CV: RRR, no m/g/r, no c/c/e ABD: soft, NT SKIN: warm and dry NEURO: gait and station normal, no tremor PSYCH: Alert and appropriate: yes Oriented to person, place and time: yes Affect: full range Mood: good Judgement and insight: intact Assessment: Aniya Luque is a 33 y.o. female with a history of snoring, periods of apnea, non restorative sleep, bruxism, AM headaches and EDS. Some nights she wakes frequently to urinate but it's not every night. Has the following physical features associated with YOON; small oral airway. She has the following co-morbid conditions; HTN-difficult to control, anxiety/depression, GERD, allergies, asthma andis a smoker. The history and symptoms are suspicious for obstructive sleep apnea. The diagnosis of obstructive sleep apnea was reviewed in detail with the patient at this time. Potential consequencesof untreated obstructive sleep apnea reviewed, including increased cardiovascular risk. Treatment options reviewed in detail including PAP therapy, oral appliances and surgical interventions. Patientconfirms that study results can be called to [phone] and detailed message left if not available to answer. The minipress, doxepin, benadryl and valium could all be contributing to daytime sleepiness although the doses of minipress and doxepin are low and she has a history of med non compliance. She has intermittent insomnia most likely related to her underlying psychiatric conditions. She is reporting high anxiety today. Will revisit after the HST and may benefit from CBT-I. Questions regarding diagnosis and management answered at this time. Recommendations: 1. HST, handout no what to expect was provided. She is aware she may need to return for an in lab PSG. 2. Safe driving precautions extensively reviewed with the patient 3. Sleep apnea facts and figures handout provided 4. F/U with PCP re anxiety and HTN 5. F/U 6 weeks after starting PAP therapy if found to have YOON. Plan discussed with the patient and they are in agreement. EMILI WALTON APRN documented in this encounter Plan of Treatment Upcoming Encounters Date Type Department Care Team (Late st Contact Info) Description 09/21/2024 8:15 AM EST Routine Obstetrics [place] [address] Emili Cabrera MD [facility] [place] [address] 09/26/2024 6:00 PM EST Appointment [facility] [place] [phone] 10/16/2024 Hospital [place] [phone] Dudley Aguilar MD [facility] OBST[place] [address] 11/08/2024 10:00 AM EST Hospital Encounter Non-Invasive [place] [phone] Arrived Scheduled Referrals Name Type Priority Associated Diagnoses Orde r Schedule Referral to Sleep Disorders Center Outpatient Referral Routine Snoring Witnessed apneic spells Non-restorative sleep Morning headache Excessive daytime sleepiness Essential hypertension Anxiety and depression Gastroesophageal reflux disease, esophagitis presence not specified Ordered: 04/08/2019 documented as of this encounter Visit Diagnoses Diagnosis Snoring Other dyspnea and respiratory abnormality Witnessed apneic spells Apnea Non-restorative sleep Other sleep disturbances Morning headache Headache Excessive daytime sleepiness Essential hypertension Unspecified essential hypertension Anxiety and depression Dysthymic disorder Gastroesophageal reflux disease, esophagitis presence not specified Bruxism Other specified psychophysiological malfunction Cigarette nicotine dependence with other nicotine-induced disorder documented in this encounter
--- OUTSIDE RECORDS SUMMARY | 2024-09-20 11:16 | XMS_ITS | Encounter Summary ---
Author Organization [facility] Address [facility] [place] [address] Care Team Providers Care Skin Toggler Name Role Phone Unavailable Primary Care Provider Unavailabl e Reason for Visit * Reason Comments URI Encounter Details Date Type Department Care Team (Late st Contact Info) Description 01/03/2020 3:39 PM EDT - 01/03/2020 8:48 PM EDT [place] [address] Maryjane King MD [facility] [place] [address] Cough Discharge Disposition: Home Social History Tobacco Use [...] Sign Reading Time Taken Comments Blood Pressure 165/98 01/03/2020 7:45 PM EDT Pulse 83 01/03/2020 7:45 PM EDT Temperature 36.8 ??C (98.2 ??F) 01/03/2020 3:58 PM ED T Respiratory Rate 22 01/03/2020 7:45 PM EDT Oxygen Saturation 96% 01/03/2020 7:45 PM EDT Inhaled Oxygen Concentration - - Weight 73.5 kg (162 lb) 01/03/2020 3:58 PM EDT Height - - Body Mass Index 27.81 04/21/2019 4:24 PM EDT documented in this encounter Discharge Instructions * Discharge Instructions* Michael Marcos MD - 01/03/2020 8:29 PM EDT You were seen today for a cough. You do not meet criteria for coronavirus testing at this time. Based on your story, your physical exam, and lab results we feel your symptoms are most consistent witha viral upper respiratory process. Take tylenol and ibuprofen for symptomatic management, hydrate well, and get lots of rest. Please self-isolate as you are likely contagious as you are symptomatic. Please follow-up with PCP over the phone as the symptoms improve. Return to the ED for any symptoms that are emergently concerning to you. Psychiatry Continuing Care Instructions You were assessed by: Yasmeen Madrid MD Your diagnosis is: Anxiety Recommended follow-up plans are: ?? call your psychiatrist/therapist for follow-up appointment ?? call your primary care physician for medication follow-up Referral options for outpatient psychiatric treatment: It is recommended that you obtain follow-up care for medication management and therapy. Please call your therapist to arrange for follow-up. Weekly therapy may be beneficial in the treatment of your anxiety. Could discuss with your PCP the possibility of starting on an antidepressant such as an SSRI for treatment of both anxiety and depression. Additional Instructions and Resources: Emergency contacts for worsened symptoms or safety concerns Go to your nearest emergency room, or call 911 Call your local community crisis line at RS [phone], or call the [facility] crisis line at [phone] Helpful websites for additional information: National Institutes of Mental Health (NIMH) http://www.nimh.nih.gov [employer] http://www.healthyminds.org/letstalkfacts.cfm National [employer] on Mental Illness www.andrew.org or www.namivt.org or www.naminh.org for local sites documented in this encounter Medications at Time [...] as of this encounter ED Notes * Tatiana Matos RN - 01/03/2020 7:54 PM EDT Pt up to the BR. * Tatiana Matos RN - 01/03/2020 6:50 PM EDT Pt to see psych before she is discharged. * Maryjane King MD - 01/03/2020 6:24 PM EDT ED RESIDENT FOLLOW-UP NOTE: Time of transfer of care: 1800 Care transferred from: Dr. Courtney Condition at time of transfer: stable Clinical Summary: 34 y.o. old female in the process of being evaluated for URI. Please see Dr. Das notes for initial evaluation, assessment and plan. Briefly, patient is a 34-year-old female with a history of depression presenting with URI symptoms with a negative work-up likely viral in origin.Mention passive SI during triage. Currently now awaiting psychiatric evaluation. History of prior attempt. Currently feels unsafe returning home but denies any active plan. Subsequent ED Course: Psychiatry evaluated the patient and developed a safe discharge plan. Patientamendable for discharge home. She expresses understanding that she can return to the emergency department at any time. Michael Marcos MD Resident 01/03/20 9650 ED ATTENDING ATTESTATION NOTE The patient was seen in conjunction with Dr. Marcos, the resident physician. I have independently performed the steiner portions of the history and physical exam. I have reviewed the nursing notes, vital signs, and all diagnostic studies personally including labs, imaging studies and EKGs. I have discussed the details of the case with the resident and agree with the assessment and plan as described in the resident note unless noted otherwise. Maryjane King MD 01/04/20 1546 * Tatiana Matos RN - 01/03/2020 5:01 PM EDT Pt has a light rash on her left hand. * Maryjane King MD - 01/03/2020 4:06 PM EDT ED Resident Note Aniya Luque is an 34 y.o. female who presents to the ED with: Chief Complaint Patient presents with ??? URI I saw this patient on 01/03/2020. History is from patient and chart review. HPI Aniya Luque is a 34 y.o. female with history of anxiety, depression, asthma who presents to the Emergency Department with fevers, cough, and SOB for 3d. Cough is productive of white-anderson phlegm -like someone turned a faucet on. Symptoms have been getting worse for 3d. Has tried ibuprofen with minimal relief. Decided to come to ED today because my whole body is numb and tingly feeling. Non/v/d. Some stomach pain. Endorses decreased PO intake of solids and liquids 2/2 not feeling well. No sick contacts. No recent travel. No exposure to known covid-19 patients. PMH: Past Medical History: Diagnosis Date ??? Anorexia ??? Anxiety 08/03/2014 ??? Asthma 08/03/2014 ??? Flaherty's palsy ??? Chest pain 01/17/2016 ETT 2013- negative ST III Echo 2013 ??Normal LV size and function, trivial TR, mild PI ??? Depression ??? Headache ??? Hypertension 08/03/2014 SocHx: Social History Socioeconomic History ??? Marital status: Single Spouse name: None ??? Number of children: None ??? Years of education: None ??? Highest education level: None Occupational History ??? None Social Needs ??? Financial resource strain: None ??? Food insecurity Worry: None Inability: None ??? Transportation needs Medical: None Non-medical: None Tobacco Use ??? Smoking status: Current Every Day Smoker Packs/day: 1.00 Types: Cigarettes ??? Smokeless tobacco: Never Used ??? Tobacco comment: Smokess 0.5 - 1 packs of cigarettes daily x 13 - 14 years. Substance and Sexual Activity ??? Alcohol use: Not Currently Comment: occasionally ??? Drug use: Not Currently ??? Sexual activity: Yes Partners: Male control/protection: Pill Comment: question deferred Lifestyle ??? Physical activity Days per week: None Minutes per session: None ??? Stress: None Relationships ??? Social connections Talks on phone: None Gets together: None Attends yarsani service: None Active member of club or organization: None Attends meetings of clubs or organizations: None Relationship status: None ??? Intimate partner violence Fear of current or ex partner: None Emotionally abused: None Physically abused: None Forced sexual activity: None Other Topics Concern ??? Do You live alone? Not Asked ??? Tobacco in Home Not Asked Social History Narrative ??? None Review of Systems: A 10 point review of systems was performed and was negative except as noted in the HPI. Physical Exam: Temp: [36.8 ??C (98.2 ??F)] Heart Rate: [87] Resp: -- BP: (170)/(97) SpO2: [99 %] Heart Rate from SpO2: -- General: AAOx4, in NAD HEENT: normocephalic/atraumatic, EOMI, MMM Neck: supple, full range of motion Cardiovascular: normal rate, regular rhythm, S1/2 Pulmonary: LCTAB Abdomen: soft, nondistended, no TTP, no rebound/guarding Skin: Warm and dry Extremities: no deformities. Neuro: CN II-XII grossly intact bilaterally. Psych: normal mood and thought pattern. Assessment and Plan: 34 y.o. female with history of anxiety, depression, asthma here with fevers, cough, SOB for 3d. No travel history, sick contacts, or known covid exposure so will not test for covid at this time. Lungs clear bilaterally so will not get CXR to evaluate for PNA. Satting 99% on RA without wheezing so do not believe she requires symptomatic management such as nebs. Will check BMP given report of decreased PO intake, check flu and RSV swab, and provide symptomatic management. Further management per re-assessment. ED Course: - Patient seen under the supervision of the attending physician. - Medications, allergies, and past medical history reviewed. No results found for this or any previous visit (from the past 24 hour(s)). ED Course as of Jan 02 1758FriJan 03, [id number] No metabolic derangements seen Basic Metabolic Panel (non-fasting) CBC, BMP unremarkable. Patient feels better s/p IVF, tylenol, ibuprofen. Feel reassured there is nofurther testing that will change management facilitator On RN screening concern raised that patient voiced passive SI. On my interview she reports passive SI without a plan when my symptoms get bad I worry my emotions will get ahold of me and Im going to do something bad. Did attempt overdose as a child and has history of cutting. States no one is abusing her at home but she feels questionably safe because she doesn't want to be overwhelmed by her emotions. States she sometimes will take a walk or a hot bath as coping mechanisms when her emotionsget the best of her. Psych consulted for further risk assessment. Imaging: - None Consults: - Psych as above Medications given: Medications - No data to display Patient signed out to oncoming team pending psychiatry consult and recs Jarred Courtney MD Resident 01/03/20 182 ED ATTENDING ATTESTATION NOTE The patient was seen in conjunction with Dr. Courtney, the resident physician. I have independently performed the steiner portions of the history and physical exam. I have reviewed the nursing notes, vital signs, and all diagnostic studies personally including labs, imaging studies and EKGs. I have discussed the details of the case with the resident and agree with the assessment and plan as described in the resident note unless noted otherwise. Brief Summary: cough and malaise without concerning exposures. Non-toxic. Suspect viral syndrome (very low suspicion for COVID-19). Mentioned tome passive SI which was evaluated by psychiatry. Is stable and chronic, cleared by psych for discharge. Final Assessment: as above Did this case involve critical care? No Maryjane King MD 01/04/20 1610 documented in this encounter Miscellaneous Notes * Consult Note - Yasmeen Madrid MD - 01/03/2020 6:17 PM EDT EMERGENCY DEPARTMENT PSYCHIATRIC EVALUATION The patient was seen at 7:00 PM (time). Time Spent: 60 minutes Referral Source: Jarred King MD Additional Attendee(s) (identify by relationship to pt.): None Information source: Patient. Electronic Medical Record. Chief Complaint: 34 y.o. Female with hx of anxiety, depression, and asthma presents to [facility] Emergency Department with URI symptoms. Later endorsed chronic passive SI. History of Present Illness: (1,1,4) Pt reports she came to the ED today because of anxiety, cough, and rhinorrhea. She has struggled with anxiety for years, but finds that it is worsened by physical illness as she begins to worry that something serious is wrong with her. This afternoon, she began to feel overwhelmed with anxiety about her URI in light of the COVID-19 outbreak and decided to present to the ED. States that she is really anxious all the time and describes this as feeling numb, tingly, having racing thoughts, nausea, and chest pain. Is prescribed valium 5mg QID PRN by her PCP and normally takes this four times a day for anxiety. Has also been using CBD gummies and feels these help more than even the valium. Takes 2 ~75mg gummies once per day. Does endorse some chronic symptoms of depression, but states that it is difficult to tell what is currently worsened by her physical illness. Reports low energy, trouble getting out of bed in the morning, worthlessness, and chronic passive SI. Passive thoughts of being better off , or wishing she could go to sleep and not wake up, have been chronically present,at least for the past decade. A few weeks ago had intermittent active SI with fleeting idea of driving into something, but did not act on these thoughts and feels she is able to keep herself safe at home. Denies current SI, plan, or intent, daughters and family are a strong protective factor. Denies HI or paranoia. Does endorse AH of a male voice for the past 7-8 months. She cannot make out what the voice is saying. Pt states that she has strong support in her sister and generally when she is feeling overwhelmed, she calls her and it calms her down. She also takes warm baths, which helps. With regards to outpatient care, pt's medications are managed by her PCP. She has a therapist, Tashi, through [facility] in [place], but has not seen him in several weeks due to URI. Was previously seeing him twice a month and is open to re-engaging in more frequent therapy. Psychiatric Review of Systems: Sustained Depressed Mood: Yes Sustained Elevated Mood: No Sustained Irritable Mood: No Flashbacks: No Nightmares: No Panic Attacks: No Chronic Worry: Yes Psychotic Symptoms: Yes Obsessions/Compulsions: No Violence: No Self Harm: Yes, last cut 8 years ago Suicide Risk Factors on Day of ED Presentation: Enduring Factors: chronic mental health problems and history of previous suicide attempts Dynamic Factors: depressive symptoms, fiance in alf, anxiety over COVID-19 outbreak Protective Factors: family and community support, engaged in medical and/or mental health care, effective coping skills and future orientation Access to Firearms: No Other Psychiatric History: Prior diagnoses: Anxiety, depression, bipolar disorder, intermittent explosive disorder Past hospitalization and location: [facility] many times from 1393-9781. No hospitalizations since 2011. Suicide attempt details: Overdose in 9th grade on a friend's meds Past psychiatric medications: Doxepin, others she cannot recall Substance Use History/Treatment: Alcohol: Denies Tobacco: Smokes 0.5-1ppd MJ: CBD gummies Other: Denies Outpatient Medications: No current facility-administered medications on file prior to encounter. Current Outpatient Medications on File Prior to Encounter Medication Sig Dispense Refill ??? diazePAM (VALIUM) 5 mg Tablet Take 5 mg by mouth daily as needed. 0 ??? lisinopril (PRINIVIL;ZESTRIL) 10 mg Tablet Take 10 mg by mouth daily. 2 ??? VSV-HA-GKZDOKZAH 0.18/0.215/0.25 mg-25 mcg Tablet Take 1 tablet [...] x2 Family Medical/Psychiatric History: 2 cousins have attempted suicide Father- depression, anxiety Son- anxiety Uncle- bipolar disorder Uncle- schizophrenia Social History: Pt lives in [place], [place] with her two daughters. Bel is currently in alf since August 2019 and is scheduled to be released in February. Not sure if he will actually be released then. 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 Vitals (24hr Range): Patient Vitals for the past 24 hrs: Temp Pulse Resp BP SpO2 O2 Device 01/03/20 1558 36.8 ??C (98.2 ??F) 87 -- (!) 170/97 99 % RA 01/03/20 1600 -- 98 20 (!) 158/105 97 % -- 01/03/20 1615 -- (!) 101 15 (!) 158/99 97 % -- Musculoskeletal System: normal gait and balance, ambulates independently and no atrophy Mental Status Exam: ?? Appearance: age appropriate, casually dressed, well groomed and overweight ?? Behavior: cooperative with the interview, calm and good eye contact ?? Speech: normal pitch, normal volume and normal rate ?? Language: fluent in macanese and without paraphasic errors ?? Mood: anxious ?? Affect: constricted, anxious and mood-congruent ?? Thought Process: linear and logical ?? Associations: intact ?? Thought Content: denied homicidal ideation, denied suicidal ideation, no bizarre delusions and no paranoid delusions ?? Perception: denied auditory hallucinations denied visual hallucinations not observed responding to internal stimuli ?? Orientation: grossly intact by interview ?? Attention/Concentration: able to sustain focus ?? Cognition: grossly intact by interview ?? Memory: recent and remote memory grossly intact ?? Fund of Knowledge: appropriate for age and level of functioning ?? Insight: good ?? Judgment: good Wish to be : Have you wished you were or wished you could go to sleep and not wake up?: Yes (01/03/201601) Suicidal Thoughts: Have you had any actual thoughts of killing yourself?: Yes (01/03/201601) Suicidal Thoughts with Method (without Specific Plan or Intent to Act): Have you been thinking about how you might do this?: No (01/03/201601) Suicidal Intent (without Specific Plan): Have you had these thoughts and had some intention of acting on them?: Yes (01/03/201601) Suicidal Intent with Specific Plan: Have you started to work out or worked out the details of how to kill yourself? Do you intend to carry out this plan?: No (01/03/201601) Suicide Behavior Question: Have you ever done anything, started to do anything, or prepared to do anything to end your life?: No (01/03/201601) Labs: Psychiatry Labs (Last 24 hours): Preg: No results found for: HCGQUAL, HCGQUANT Heme: Lab Results Component Value Date WBC 12.0 (H) 01/03/2020 HGB 12.0 01/03/2020 HCT 37.5 01/03/2020 PLATELET 250 01/03/2020 MCV 85.4 01/03/2020 NEUTROABS 9.21 (H) 01/03/2020 No results found for: HA1C, SEDRATE Chem: Lab Results Component Value Date NA 139 01/03/2020 K 4.1 01/03/2020 CL 104 01/03/2020 CO2 24 01/03/2020 BUN 14 01/03/2020 GLUCOSE 96 01/03/2020 Lab Results Component Value Date CALCIUM 9.6 01/03/2020 LFTs: No results found for: ALT, AST, GGT, ALKPHOS, BILITOT, AMMONIA Coags: No results found for: PTT, PT, INR Thyroid: No results found for: TSH, N0QCYAY, TT4 Lipids and HgbA1C: No results found for: CHLPL, HDL, CHOLHDL, LDLCHOL, LDLDIRECT, TRIG No results found for: HA1C Vit Lvls: No results found for: UTZIXHGA21, SFOLATE UA: No results found for: GLUCOSEU, [...] Luque is a 34 y.o. Female with hx of anxiety, depression, and asthma who presents to [facility] Emergency Department with URI symptoms. On [place] screening she reported SI for which psychiatrywas consulted. Pt reports a long hx of struggles with depression and anxiety accompanied by chronicsuicidal ideation. Some level of passive SI has been present for more than a decade with intermittent periods of more active suicidal thoughts. Currently, pt denies suicidal ideation beyond her baseline passive SI. She feels safe at home, does not have access to firearms, is future oriented, and states that her children are a strong protective factor. She does note that her anxiety has recently wo rsened in the context of her URI symptoms and that she has not been regularly seeing her outpatienttherapist because of the URI. Pt brought up the idea of inpatient psychiatric hospitalization as she has been hospitalized in the past, however then stated that she was not interested in hospitalization because she does not feel it would be beneficial at this point. There are no acute safety concerns that would necessitate hospitalization at this time. We discussed re- engaging in more frequent outpatient therapy, perhaps weekly, for treatment of anxiety and she was agreeable. Also recommended following up with PCP to discuss potential medication options, however pt is not particularly interested in medications. Provided pt with crisis line info in AVS and verbally discussed calling 911 or presenting to the ED should thoughts of harming herself or others. There are no psychiatric contraindications to discharge once medically clear. Current Suicide Assessment: Elevated when compared to baseline given recent worsening anxiety in the context of URI symptoms. At baseline, is at chronically increased risk due to hx of mental illness, hx of multiple psychiatric hospitalizations, and hx of suicide attempt. Risk lower than that of patients typically admitted to the inpatient unit. Mitigated by follow-up with therapist and PCP, and strong family support. Diagnosis: Unspecified anxiety disorder Plan: # Anxiety -Pt reports chronic passive SI, no active SI or acute safety concerns. No psychiatric contraindications to discharge. -Recommend pt call her PCP to make a follow-up appointment within the next 5-7 days to discuss possibility of medication options for anxiety and depression such as SSRI. However, pt not interested inmedications at this time. -Follow-up with outpatient therapist this week -Return precautions verbally discussed including calling 911 or returning to the nearest ED should thoughts of harming herself or others arise. Pt provided with crisis line info. Signed By: Yasmeen Madrid MD 01/03/2020 Associated attestation - Wei Garcia MD - 01/04/2020 10:39 AM EDT PSYCHIATRY TEACHING PHYSICIAN INVOLVEMENT Attending Physician: Dr. Jose MD Resident name: Dr. Madrid The assessment and plan were formulated in discussion with me and I agree with them as documented. * ED Triage - Tatiana Matos RN - 01/03/2020 3:59 PM EDT Pt is here today for 3 days of cough, sore throat and SOB. She is unsure if she has had a fever butshe has had chills and hot flashes. She has no sick contacts or travel outside the [place]. documented in this encounter Plan of Treatment Upcoming Encounters Date Type Department Care Team (Late st Contact Info) Description 09/21/2024 8:15 AM EST Routine Obstetrics [place] [address] Emili Cabrera MD [facility] [place] [address] 09/26/2024 6:00 PM EST Appointment [facility] [place] [address] 10/16/2024 [place] [address] Dudley Aguilar MD [facility] [place] [address] 11/08/2024 10:00 AM EST Hospital Encounter Non[place] [id number] Arrived documented as of this encounter Procedures Procedure Name Priority Date/Time Associated Diagnosis Comments HEMOGRAM STAT 01/03/2020 4:25 PM EDT DIFFERENTIAL, AUTOMATED STAT 01/03/2020 4:25 PM EDT GREEN TUBE HOLD STAT 01/03/2020 4:25 PM EDT HC CBC,PLT & AUTO DIFF STAT 01/03/2020 4:25 PM EDT BASIC METABOLIC PANEL STAT 01/03/2020 4:25 PM EDT HC INFLUENZA A/B & RSV BY PCR STAT 01/03/2020 4:18 PM EDT documented in this encounter Results * Basic Metabolic Panel (non-fasting) (01/03/2020 4:25 PM EDT) Glucose 96 65 - 199 mg/dL [facility] Comment:Diabetes: >=200 mg/d L plus symptoms Blood Urea Nitrogen 14 8 - 18 mg/dL [facility] Creatinine 1.03 0.70 - 1.20 mg/dL [facility] Sodium 139 135 - 145 mmol/L [facility] Potassium 4.1 3.5 - 5.0 mmol/L [facility] Comment: Please note: ??Patients with WBC >100,000 may have falsely elevated Potassium levels. ??For accurate Potassium quantification in these patients send serum separator tube (gold top) for subsequent determinations. ??Contact the Clinical Chemistry Laboratory if there are any questions. Chloride 104 98 - 107 mmol/L [facility] Carbon Dioxide 24 22 - 31 mmol/L [facility] Anion Gap 11 5 - 15 mmol/L [facility] Calcium 9.6 8.5 - 10.5 mg/dL [facility] Est Glomerular Filtration Rate 70 >=60 mL/min/1. 73 m?? [facility] Comment: The eGFR was calculated using the CKD-EPI equation. As with all creatinine based estimates of kidney function, eGFR values calculated with the CKD-EPI equation are not accurate in patients with acute kidney failure, extremes of body mass or the acutely ill. http://[email or web address] eGFR 82 >=60 mL/min/1. 73 m?? [facility] Comment: The eGFR was calculated using the CKD-EPI equation. As with all creatinine based estimates of kidney function, eGFR values calculated with the CKD-EPI equation are not accurate in patients with acute kidney failure, extremes of body mass or the acutely ill. [email or web address]ULSAnkf Blood specimen (specimen) No Charge / Unknown 01/03/2020 4:25 PM EDT 01/03/2020 4:32 PM EDT Narrative Resulting Agency Comment Spec In Lab Jarred Courtney MD CHEMISTRY ORDERABLES Performing Organization Address City/State/[facility] Co de Phone Number [facility] [place] [address] * (ABNORMAL) Differential, Automated (01/03/2020 4:25 PM EDT) Neutrophil % 76.9 % [facility] Neutrophil Absolute 9.21(H) 1.70 - 6.10 x10(3)/mc L [facility] Lymph % 14.1 % [facility] Lymphocytes Abs 1.7 0.9 - 3.2 x10(3)/mc L [facility] Monocyte % 6.5 % [facility] Monocyte Abs 0.8 0.3 - 0.9 x10(3)/mc L [facility] Eos % 1.7 % [facility] Eosinophils Abs 0.2 0.0 - 0.4 x10(3)/mc L [facility] Basophil % 0.5 % [facility] Baso Absolute 0.1 0.0 - 0.1 x10(3)/mc L [facility] Immature Gran % 0.30 % [facility] Comment: Immature granulocytes(IG's)percentage and absolute count will include metamyelocytes, myelocytes, and promyelocytes. Blood smears from CBCs yielding IG's will be scanned manually for concordance. If this scan disagrees with the automated IG or if promyelocytes are noted, a manual differential will be performed. Immature Gran Absolute 0.03 0.00 - 0.04 x10(3)/mc L [facility] Blood specimen (specimen) 01/03/2020 4:25 PM EDT 01/03/2020 4:32 PM EDT Narrative Resulting Agency Comment Spec In Lab Maryjane King MD HEMATOLOGY ORDERABL ES [facility] [place] [address] * (ABNORMAL) Hemogram (01/03/2020 4:25 PM EDT) White Blood Cell 12.0(H) 4.0 - 9.5 x10(3)/mc L [facility] Red Blood Cell 4.39 4.00 - 5.21 x10(6)/mc L [facility] Hemoglobin 12.0 11.7 - 15.5 gm/dL [facility] Hematocrit 37.5 35.7 - 45.8 % [facility] Mean Cell Volume 85.4 82.6 - 94.4 fL [facility] Mean Cell Hemoglobin 27.3 27.1 - 32.0 pg [facility] Mean Cell Hemoglobin Concentration 32.0 31.7 - 35.0 gm/dL [facility] Platelet 250 145 - 357 x10(3)/mc L [facility] RDW Standard Deviation 46.9(H) 37.0 - 46.0 fL [facility] RDW coefficient of variation 15.2(H) 11.5 - 14.1 % [facility] Mean Platelet Volume 12.3 7.6 - 12.9 fL [facility] NRBC% auto 0.0 % [facility] NRBC Absolute 0.000 0.000 - 0.000 x10(3)/mc L [facility] Blood specimen (specimen) 01/03/2020 4:25 PM EDT 01/03/2020 4:32 PM EDT Narrative Resulting Agency Comment Spec In Lab Maryjane King MD HEMATOLOGY ORDERABL ES Performing Organization Address [facility] Co de Phone Number [facility] [place] [address] * Green Tube HOLD (01/03/2020 4:25 PM EDT) Green Hold Sample in lab. [facility] Blood specimen (specimen) 01/03/2020 4:25 PM EDT 01/03/2020 4:32 PM EDT Maryjane King MD CHEMISTRY ORDERABLE S Performing Organization Address [facility] Co de Phone Number [facility] [place] [address] * Rapid Influenza A/B and RSV PCR ([facility]/APD) (01/03/2020 4:18 PM EDT) Pathologist [facility] Influenza A PCR Not Detected Not Detected [facility] Influenza B PCR Not Detected Not Detected [facility] RSV PCR Not Detected Not Detected [facility] Resp PCR Source 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 Swab [facility] Nasopharyngeal swab (specimen) 01/03/2020 4:18 PM EDT 01/03/2020 4:36 PM EDT Narrative Resulting Agency Comment Spec In Lab Maryjane King MD MICROBIOLOGY - GENE RAL ORDERABLES Performing Organization Address [facility] de Phone Number [facility] [place] [address] documented in this encounter Visit Diagnoses Diagnosis Cough documented in this encounter Administered Medications Inactive Administered Medications - up to 3 most recent administrations Medication Order MAR Action Action Date Dose Rate Site acetaminophen (Tylenol) tablet 1,000 mg 1,000 mg, Oral, ONCE, 1 dose, On Fri01/03/20 at 1642, Maximum dose of acetaminophen is 4000 mg from all sources in 24 hours., STAT Given 01/03/2020 4:53 PM EDT 1,000 mg ibuprofen (Advil;Motrin) tablet 800 mg 800 mg, Oral, ONCE, 1 dose, On Fri01/03/20 at 1642, Administer orally with milk or food to minimize GI irritation , STAT Given 01/03/2020 4:53 PM EDT 800 mg lactated Ringers 1,000 mL IV bolus at 2,000 mL/hr, Intravenous, ONCE, 1 dose, On Fri01/03/20 at 1642 New Bag 01/03/2020 4:55 PM EDT 2000 mL/hr documented in this encounter Active and Recently Administered Medications Times are shown in EDT. Scheduled Medication Order 01/01/2020 01/02/2020 01/03/2020 acetaminophen (Tylenol) tablet 1,000 mg (COMPLETED) 1,000 mg, Oral, ONCE, 1 dose, On Fri01/03/20 at 1642, Maximum dose of acetaminophen is 4000 mg from all sources in 24 hours., STAT 1652 (Given - Provid er: Tatiana Matos RN) ibuprofen (Advil;Motrin) tablet 800 mg (COMPLETED) 800 mg, Oral, ONCE, 1 dose, On Fri01/03/20 at 1642, Administer orally with milk or food to minimize GI irritation , STAT 1652 (Given - Provid er: Tatiana Matos RN) lactated Ringers 1,000 mL IV bolus (COMPLETED) at 2,000 mL/hr, Intravenous, ONCE, 1 dose, On Fri01/03/20 at 1642 1655 (New Bag - Prov ider: Tatiana Matos RN)1930 (Stopped - Provider: Tatiana Matos RN) documented in this encounter
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
--- OUTSIDE RECORDS SUMMARY | 2024-09-20 11:16 | XMS_ITS | Encounter Summary ---
Author Organization [facility] Address [facility] [place] [address] Care Team Providers Care Band Cutter Name Role Phone Unavailable Primary Care Provider Unavailabl e Encounter Details Date Type Department Care Team (Late st Contact Info) Description 05/14/2019 Orders Only Sleep Center at [facility] [address] [place] [address] Mary Kovacs MD [facility] [address] SLE[facility] [place] [address] Social History Tobacco Use Types Packs/Day Years [...] Progress Notes * Mary Kovacs MD - 05/14/2019 5:02 PM EDT Polysomnogram Order Form Room # Technologist Assignment: To be read by on PSG Patient Information Date of study: : 1985 Name: Aniya Luque Height: * 5'4 Weight: 159 lbs 33 y.o. female Normal sleep hours: 11:30 to 6 Arrival Time: Physical/Mobility Limitations: No Cognitive Limitations: No Requires Male Tech: No Requires Female Tech: No Requires 1:1 Care: No Requires Parent/Caregiver: no Using Home Oxygen: n At home sleeps in: Bed PSG Indications: Non-diagnostic HSAT, suspect YOON Other Medical Conditions: Patient Active Problem List Diagnosis Code ??? Anxiety F41.9 ??? Depression F32.9 ??? Asthma J45.909 ??? Hypertension I10 ??? Tachycardia R00.0 ??? Skin disease L98.9 ??? Chest pain R07.9 PSG Orders Type of study: PSG, split for AHI > 30 Additional data required: no Special instructions: no *Initiate CPAP/BPAP/oxygen per previously determined protocols unless otherwise specified. documented in this encounter Plan of Treatment Upcoming Encounters Date Type Department Care Team (Late st Contact Info) Description 09/21/2024 8:15 AM EST Routine Obstetrics [place] [address] Emili Cabrera MD [facility] MATERNAL [place] [address] 09/26/2024 6:00 PM EST Appointment [facility] [place] [address] 10/16/2024 Hospital Encounter Birthing [place] [phone] Dudley Aguilar MD [facility] DR OBSTETRICS AND GYNECOLOGY [place] [id number] 11/08/2024 10:00 AM EST Hospital Encounter [place] [address] Arrived documented as of this encounter Visit Diagnoses Not on filedocumented in this encounter
--- OUTSIDE RECORDS SUMMARY | 2024-09-20 11:16 | XMS_ITS | Encounter Summary ---
Author Organization [facility] [place] [address] Care Team Providers Care Talent Development Director Name Role Phone Unavailable Primary Care Provider Unavailabl e Encounter Details Date Type Department Care Team (Late st Contact Info) Description 11/06/2020 Telephone [place] [phone] Dary Stevens CMA GASTROENTEROLOGY DEPT Social History Tobacco Use Types Packs/Day Years [...] encounter Miscellaneous Notes * Telephone Encounter - Dary Stevens CMA - 11/06/2020 10:26 AM EST Called patient to review medications and allergies for their upcoming gastroenterology Type of Appointment: Phone appointment. Reach Patient during MA Check: Yes Notes for the provider: Patient stated that she has no more storage on her phone to add anymore applications, and does not have a computer. The patient would like if Kim can call her instead for her visit. Notes for the nurse: documented in this encounter Plan of Treatment Upcoming Encounters Date Type Department Care Team (Late st Contact Info) Description 09/21/2024 8:15 AM EST Routine Obstetrics [place] [phone] Emili Cabrera MD [facility] MATERNAL [place] [address] 09/26/2024 6:00 PM EST Appointment [facility] [place] [address] 10/16/2024 [place] [phone] Dudley Aguilar MD [facility] DR OBSTETRICS [place] [address] 11/08/2024 10:00 AM EST Hospital Encounter Non[place] [address] Arrived documented as of this encounter Visit Diagnoses Not on filedocumented in this encounter
--- OUTSIDE RECORDS SUMMARY | 2024-09-20 11:16 | XMS_ITS | Encounter Summary ---
Author Organization [facility] [place] [address] Care Team Providers Care Director Executive Communications Name Role Phone Unavailable Primary Care Provider Unavailabl e Encounter Details Date Type Department Care Team (Late st Contact Info) Description 01/04/2021 Telephone [place] [address] Yasemin Dale Social History Tobacco Use Types Packs/Day Years [...] encounter Miscellaneous Notes * Telephone Encounter - Yasemin Dale - 01/04/2021 12:30 PM EDT LVM X1 Case is built documented in this encounter Plan of Treatment Upcoming Encounters Date Type Department Care Team (Late st Contact Info) Description 09/21/2024 8:15 AM EST Routine Obstetrics [place] [phone] Emili Cabrera MD [facility] [place] [address] 09/26/2024 6:00 PM EST Appointment [facility] [place] [address] 10/16/2024 [place] [address] Dudley Aguilar MD [facility] OBST[place] [address] 11/08/2024 10:00 AM EST Hospital Encounter Non-[place] [phone] Arrived documented as of this encounter Visit Diagnoses Not on filedocumented in this encounter
--- OUTSIDE RECORDS SUMMARY | 2024-09-20 11:16 | XMS_ITS | Encounter Summary ---
Author Organization [facility] Address [facility] [place] [address] Care Team Providers Care Professor Of Education Name Role Phone Unavailable Primary Care Provider Unavailabl e Encounter Details Date Type Department Care Team (Latest Contact Info) Description 01/09/2021 10:53 AM EDT - 01/09/2021 1:47 PM EDT Hospital Encounter [place] [address] Dudley Alva MD [facility] [place] [address] Discharge Disposition: Home Social History Tobacco Use [...] Sign Reading Time Taken Comments Blood Pressure 121/90 01/09/2021 1:25 PM EDT Pulse 114 01/09/2021 1:00 PM EDT Temperature 37 ??C (98.6 ??F) 01/09/2021 11:05 AM EDT Respiratory Rate 16 01/09/2021 1:25 PM EDT Oxygen Saturation 99% 01/09/2021 1:25 PM EDT Inhaled Oxygen Concentration - - [...] the day after the procedure, use an dowk-fxr-uddilyy spray to numb your throat. Sucking on [...] occurs, please contact your Doctor. Please call [phone] before 8pm Mon-Fri with problems, questions or concerns. If you call after 8pm or on weekends, call the Hospital at [phone] and ask to speak to the Script Writer sewage reticulation drafting officer and the squaring machine operator will contact that person for you. When should you call for help? Call 494 anytime you think you may need emergency [...] any problems. Where can you learn more? [facility] View your After Visit Summary and more online at [email or web address] If you would like to provide [...] cost to you. Content Version: 12.2 ?? [id number] [employer]. Care instructions adapted under license by [facility]. If you have questions about a medical condition or this instruction, always ask your healthcare professional. [employer] disclaims any warranty or liability for your [...] Alva MD - 01/09/2021 12:51 PM EDT [facility] Operative Note Patient Name: Aniya Luque DOB: [id number] MR#: [id number] Case Date: 01/09/2021 Surgeon: Surgeon(s) and Role: [...] EST Routine Obstetrics [place] [address] Emili Cabrera MD [facility] [address] MATERNAL [place] [address] 09/26/2024 6:00 PM EST Appointment [facility] [place] [address] 10/16/2024 [place] [address] Dudley Aguilar MD [facility] DR OBSTETRICS [place] [address] 11/08/2024 10:00 AM EST Hospital Encounter Non-Invasive [place] [address] Arrived documented as of this encounter Procedures Procedure Name Priority Date/Time Associated Diagnosis Comments SURGICAL PATHOLOGY REPORT Routine 01/09/2021 1:02 PM EDT SPECIMEN TO PATHOLOGY Routine 01/09/2021 1:02 PM EDT Upper GI Endoscopy, Diagnostic ([id number]) 01/09/2021 12:37 PM EDT Gastroesophageal reflux disease, unspecified whether esophagitis present UPPER GI ENDOSCOPY Routine 01/09/2021 12 :22 PM EDT documented in this encounter Results * Surgical Pathology Report (01/09/2021 1:02 PM EDT) Final Diagnosis [id number] ? Location: 4T; EA07; A The signing pathologist has (i) examined the relevant preparation(s) for the specimen(s) and (ii) rendered or confirmed the diagnosis(es). . ?Surgical Pathology DIAGNOSIS Mid esophagus, ??biopsy: Esophageal squamous mucosa, within normal limits. Electronically signed by: ??Michael LOUISE PhD, Alem Verified: ??01/12/2021 ?Pathologist Performed at: ??-[facility] Dept. of Pathology, [place], [place] SPECIMEN(S) SUBMITTED A - mid esophagus r/o EoE, biopsy (Multiple) CLINICAL INFORMATION 35-year-old female GERD sx's SPECIMEN PROCESSING A - Labeled/Fixativ e: Mid esophagus R/O EoE, formalin. Quantity/Size: Four, averaging 0.2 cm. Tissue Description: Soft, translucent pink-finley to barker-white tissues. Sections/Proces sing: Submitted en toto ??in 1 cassette labeled A1. ??shb 01/12/2021 4:08 PM EDT [facility] GI Biopsy 01/09/2021 1:02 PM EDT 01/09/2021 1:02 PM EDT Dudley Alva MD PATHOLOGY/CYTOLOGY [place] [address] * Specimen to Pathology (01/09/2021 1:02 PM EDT) AP Specimen 01/09/2021 1:02 PM EDT 01/09/2021 1:02 PM EDT Narrative [facility] - 01/09/2021 1:02 PM EDT Specimen requisition ordered. ??Separate Pathology report to follow Dudley Alva MD PATHOLOGY/CYTOLOGY [place] [address] * UPPER GI ENDOSCOPY (01/09/2021 12:22 PM EDT) UPPER GI ENDOSCOPY [facility] Endoscopy Procedure Date: 01/09/2021 12:22 PM ? Patient Name: Aniya Luque ? Date of : 1985 ? Age: 35 ? Order #: [id number] ? Instrument Name: [id number] ? Procedure: ? Upper GI endoscopy Indications: [...] the physician, the nurse and the ? dietetic technician registered in the pre-procedure area ? in the [...] Procedure Code(s): ?? --- Professional --- ? 35994, Esophagogastroduod enoscopy, ? flexible, transoral; diagnostic, ? including collection of specimen(s) ? by brushing or washing, when ? performed (separate procedure) CPT copyright 2019 [employer]. All rights reserved. The codes [...] Diagnosis Gastroesophageal reflux disease- Primary Esophageal reflux documented in this encounter Administered Medications Inactive Administered Medications - up to 3 most recent administrations Medication Order MAR Action Action Date Dose Rate Site lactated ringers infusion 100 mL/hr, Intravenous, CONTINUOUS, Starting on 01/09/21 at 1130, Until e 01/09/21 at 1329, Endoscopy (Day of Procedure) New Bag 01/09/2021 11:15 AM EDT 100 mL/hr 100 mL/hr documented in this encounter Active and Recently Administered Medications Times are shown in EDT. Continuous Medication Order 01/07/2021 01/08/2021 01/09/2021 lactated ringers infusion (CANCELED) 100 mL/hr, Intravenous, CONTINUOUS, Starting on e 01/09/21 at 1130, Until Fri01/09/21 at 1329, Endoscopy (Day of Procedure) 1115 (New Bag - Prov ider: Michael Renae RN) PRN Medication Order 01/07/2021 01/08/2021 01/09/2021 benzocaine (Hurricane One) Mucosal spray 20% (restricted to shyanne-procedural use) (CANCELED) ONCE PRN, Starting on 01/09/21 at 1239, Until 01/09/21 at 1547, Intra-Operative (Intra-Procedure) 1239 (Given - Provid er: Hardeep Wagner RN) fentaNYL (pf) (50 mcg/mL) multi-dose injection (CANCELED) ONCE PRN, Starting on 01/09/21 at 1242, Until 01/09/21 at 1547, Intra-Operative (Intra-Procedure), Routine 1242 (Given - Provid er: Hardeep Wagner RN)1250 (Given - Provider: Hardeep Wagner RN) midazolam (pf) (Versed) (1 mg/mL) multi-dose injection (CANCELED) ONCE PRN, Starting on 01/09/21 at 1242, Until 01/09/21 at 1547, Intra-Operative (Intra-Procedure), Routine 1242 (Given - Provid er: Hardeep Wagner RN)1246 (Given - Provider: Hardeep Wagner RN)1250 (Given - Provider: Hardeep Wagner RN) documented in this encounter
--- OUTSIDE RECORDS SUMMARY | 2024-09-20 11:16 | XMS_ITS | Encounter Summary ---
Author Organization [facility] [place] [address] Care Team Providers Care Backend Java Developer Name Role Phone Unavailable Primary Care Provider Unavailabl e Reason for Referral * Consultation (Routine) - Closed Specialty Diagnoses / Procedures Referred By Nellie mckeon Referred To Contact Gastroenterology Diagnoses Gastroesophageal reflux disease, unspecified whether esophagitis present HREM/pH impedance ON PPI for heartburn Procedures PH IMPEDANCE - 24 HOUR HIGH RESOLUTION ESOPHAGEAL MANOMETRY HREM/pH impedance ON PPI for heartburn Kim Barajas PA [facility] [place] [address] [facility] [address] [place] [id number] Referral ID Status Reason Start Date Expiration Date V isits Requested Visits Authorized [id number] Closed Consult, Test & Treat 11/06/2020 11/06/2021 1 1 Reason for Visit * Consultation (Routine) - Closed Specialty Diagnoses / Procedures Referred By Nellie mckeon Referred To Contact Gastroenterology Diagnoses Gastro-esophageal reflux disease without esophagitis REFRACTORY GERD, HPYLORI NEG Lakhwinder Rust MD [address] [place] [address] [facility] [address] [place] [phone] Referral ID Status Reason Start Date Expiration Date V isits Requested Visits Authorized [id number] Closed Consult, Test & Treat Connection Center PCP Updated and/or Approved 09/18/2020 09/18/2021 3 3 Encounter Details Date Type Department Care Team (Latest Contact Info) Description 11/06/2020 1:30 PM EST TH Visit (TeleHealth) [place] [address] Kim Barajas PA [facility] [place] [address] Gastroesophageal reflux disease, unspecified whether esophagitis present [...] as of this encounter Progress Notes * Kim Barajas PA - 11/06/2020 1:30 PM EST GASTROENTEROLOGY TELEHEALTH PROGRAM - NEW PATIENT VISIT Chief Complaint: Aniya Luque is a 35 y.o. patient referred for consultation by Dr. Rust for GERD History of Present Illness: 35 y.o. female with PMH significant for GERD, ALIRIO, MDD, chronic nausea,reactive airway disease, HTN, bipolar, depression and anxiety Patient endorses heartburn with regurgitation Symptoms have [...] History of anorexia. No history of bulimia Review of systems: 14-point review of systems reviewed and negative except as above. Medications: Outpatient Medications Prior to Visit Medication Sig Dispense Refill ??? diazePAM (Valium) 5 mg Tablet Take [...] 1 tablet by mouth as needed. No facility-administered medications prior to visit. Allergies: is allergic to augmentin [amoxicillin-pot clavulanate]; morphine; penicillins; and seroquel [quetiapine]. Past Medical History: has a past medical history of Anorexia, Anxiety (08/03/2014), Asthma (08/03/2014), Flaherty's palsy, Chest pain (01/17/2016), Depression, Headache, and Hypertension (08/03/2014). Past Surgical History: has a past surgical history that includes Dilation and curettage of uterus. Family History: denies family history of colon [...] Examination performed during this telemedicine visit Assessment/Plan: Ms. Luque is a 35 y.o. patient with heartburn and regurgitation. Symptoms have been occurring for 3+ months. She tells me she has been evaluated in the emergency department on several occasions where she is given a GI cocktail with minimal improvement. She is on several medications for acid peptic disease currently including Carafate before meals, pantoprazole in the morning, Nexium in the afternoon and famotidine at bedtime. She also is prescribedMaalox and lidocaine slurry to be taken as needed for flares. It is unclear why she is on 2 different PPIs. She mentions she was on lansoprazole prior to this current regimen. She is unsure how long she has been on this regimen and believes it only marginally helps. She finds if she misses any medications in the above regimen, she has significant symptoms. She was taking NSAIDs but has since discontinued. We discussed proceeding with diagnostic studies including EGD to evaluate for acid peptic disease. She does have a history of anxiety and tells me this procedure does make her anxious. She is more anxious regarding sedation than the actual procedure. I did discuss different sedation options with her and she feels more comfortable with conscious sedation over monitored anesthesia care. She tells me she was upset when she had a D&C and could not remember the procedure. She felt that she was misled. I did reiterate multiple times that conscious sedation typically has an amnesia effect and she likely would not remember her EGD either. We also discussed proceeding with impedance and high-resolution esophageal manometry on her currentregimen. We will arrange this after her EGD. I did discuss this procedure with her in detail. Further recommendations will be based on above findings. All of her questions today were answered TIME SPENT WITH PATIENT Time spent reviewing records prior to this encounter: 10 minutes Time spent during encounter with patient including counselin minutes Time spent documenting encounter after office visit: 6 minutes Approximate total time devoted to this single encounter: 48 minutes The patient was located in [place] at the time of their visit. EDEN Smith [facility] [place] [address] documented in this encounter Plan of Treatment Upcoming Encounters Date Type Department Care Team (Late st Contact Info) Description 09/21/2024 8:15 AM EST Routine Obstetrics [place] [address] Emili Cabrera MD [facility] MATERNAL [place] [address] 09/26/2024 6:00 PM EST Appointment [facility] [place] [address] 10/16/2024 Hospital [place] [address] Dudley Aguilar MD [facility] DR OBSTETRICS [place] [address] 11/08/2024 10:00 AM EST Hospital Encounter Non[place] [address] Arrived Scheduled Orders Name Type Priority Associated Diagnoses Orde r Schedule ENDOSCOPY CASE REQUEST: EGD, UPPER GI ENDOSCOPY Procedures Routine Gastroesophageal reflux disease, unspecified whether esophagitis present Ordered: 11/06/2020 Scheduled Referrals Name Type Priority Associated Diagnoses Order Schedule Referral to Gastroenterology Outpatient Referral Routine Gastroesophageal reflux disease, unspecified whether esophagitis present Ordered: 11/06/2020 documented as of this encounter Visit Diagnoses Diagnosis Gastroesophageal reflux disease, unspecified whether esophagitis present documented in this encounter
--- OUTSIDE RECORDS SUMMARY | 2024-09-20 11:16 | XMS_ITS | Encounter Summary ---
Author Organization [facility] [place] [address] Care Team Providers Care Trash Collector Name Role Phone Unavailable Primary Care Provider Unavailabl e Encounter Details Date Type Department Care Team (Late st Contact Info) Description 12/06/2019 Telephone Sleep Center at [facility] [address] [place] [address] Johanne Bonilla Social History Tobacco Use Types Packs/Day Years [...] AM EST Routine Obstetrics [place] [address] Emili Cabrera MD [facility] MATERNAL [place] [address] 09/26/2024 6:00 PM EST Appointment [facility] [place] [address] 10/16/2024 Hospital Encounter [place] [address] Dudley Aguilar MD [facility] DR OBSTETRICS AND GYNECOLOGY [place] [id number] 11/08/2024 10:00 AM EST Hospital Encounter Non-Invasive [place] [address] Arrived documented as of this encounter Visit Diagnoses Not on filedocumented in this encounter
--- OUTSIDE RECORDS SUMMARY | 2024-09-20 11:17 | XMS_ITS | Encounter Summary ---
[place] [address] Care Team Providers Care Car Salesperson Name Role Phone Mary Trotter CONTRACTS ANALYST Primary Care Provider [phone]- [phone] Reason for Visit * Reason Onset Date Comments Results 01/22/2016 [email or web address] Encounter Details Date Type Department Care Team (Late st Contact Info) Description 01/22/2016 Telephone Cardiology at [address] [address] Issac Collins Jr., MD [address] [place] [phone] Results ([email or web address]) Social History Tobacco Use Types Packs/Day Years [...] encounter Miscellaneous Notes * Telephone Encounter - Lien Mcclain RN - 02/09/2016 9:41 AM EDT Called patient and let her know. * Telephone Encounter - Issac Collins Jr., MD - 02/09/2016 8:24 AM EDT Loop recorder- NSR and sinus tachycardia- no arrhythmia So nothing that needs treatment She should try and increase her fluids and keep as active as possible Follow up PRN documented in this encounter Plan of Treatment Upcoming Encounters Date Type Department Care Team (Late st Contact Info) Description 09/21/2024 8:15 AM EST Routine Obstetrics [place] [address] Emili Cabrera MD [facility] [place] [address] 09/26/2024 6:00 PM EST Appointment [facility] [place] [address] 10/16/2024 [place] [address] Dudley Aguilar MD [facility] [address] [place] [address] 11/08/2024 10:00 AM EST Hospital Encounter Non-Invasive [place] [address] Arrived documented as of this encounter Visit Diagnoses Not on filedocumented in this encounter Care Teams Car Salesperson Relationship Specialty Start Date End Date Mary Trotter APRN [facility] [place] [address] PCP - General 09/03/12 03/21/19 documented as of this encounter
--- OUTSIDE RECORDS SUMMARY | 2024-09-20 11:17 | XMS_ITS | Encounter Summary ---
Author Organization [facility] Address [facility] [place] [address] Care Team Providers Care Metal Tank Builder Name Role Phone Mary Trotter MAINTENANCE TEAM MEMBER Primary Care Provider +1- [phone] Reason for Visit * Reason Comments Otalgia Encounter Details Date Type Department Care Team (Late st Contact Info) Description 03/30/2014 3:45 PM EDT Office [place] [address] Jorge Morales PA [facility] [place] [address] Ear pain, bilateral (Primary Dx); TMJ syndrome Discharge Disposition: Home Social History Tobacco Use Types Packs/Day Years Used Date Smoking Tobacco: Every Day Cigarettes Comments:Smokess 0.5 - 1 pac ks of cigarettes daily x 13 - 14 years. Sex and Gender Information Value Date Recorded Sex Assigned at Female 03/02/2024 7:39 AM EDT Gender Identity Female 03/02/2024 7:39 AM EDT Sexual Orientation Bisexual 03/02/2024 7: 39 AM EDT documented as of this encounter Last Filed Vital Signs Vital Sign Reading Time Taken Comments Blood Pressure 130/83 03/30/2014 3:37 PM EDT Pulse 93 03/30/2014 3:37 PM EDT Temperature - - Respiratory Rate - - Oxygen Saturation - - Inhaled Oxygen Concentration - - Weight 65.7 kg (144 lb 12.8 oz) 03/30/2014 3:37 PM EDT Height 162.6 cm (5' 4) 03/30/2014 3:37 PM EDT Body Mass Index 24.85 03/30/2014 3:37 PM EDT documented in this encounter Progress Notes * Jorge Morales PA - 03/30/2014 4:23 PM EDT Aniya Luque is 28 years of age and presents today for evaluation of bilateral ear pain. The patient reports for many years she's experienced fluctuating ear pain bilaterally. In review ofher medical records I saw her back in 2009 for the same complaint. My diagnosis at that time was TMJ. It was recommended she see her dentist as she told me that he did mention she most likely had bruxism. She has since been fitted with a mouthguard which she does report she uses regularly. Despite this she continues to experience a sense of ear fullness and pain. In addition she reports occasional sore throats over this past year. I did ask about any history ofpostnasal drip which she does admit to. She also has occasional reflux disease. She also reports a history of coughing fits, and afterward will bring up a lot of clear mucous. Her health otherwise is stable. Her audiologic evaluation demonstrates normal hearing each ear. Her tympanometry is within normal limits each ear. She continues to use tobacco at approximately one pack per day. On examination she appears healthy in no acute distress. Palpation of the neck reveals no palpable mass or adenopathy. She is tender to palpation of the tipof each mastoid. She is also tender to palpation in the periauricular region. Otologic exam with the operating microscope reveals patent external auditory canals without erythema or edema. The tympanic membranes demonstrate scattered tympanosclerosis but no middle ear pathology was noted. Oral cavity: Tongue, floor of mouth, buccal mucosa, buccal gutters, gums, palate, and posterior pharyngeal wall appear normal. Procedure note: Fiberoptic laryngoscopy was completed through the left nostril. There is tobacco staining around the anterior nares. No intranasal pathology was identified. The nasopharynx, oropharynx, hypopharynx were nonremarkable. Laryngeal exam reveals normal base of tongue and vallecula. Epiglottis is crisp without erythema or edema. The vocal cords appeared normal without discrete lesion, irritation or paralysis. The tips of the arytenoids and esophageal inlet to appear slightly erythematous which may suggest reflux disease, although this could also simply represent her tobacco habit causing irritation. My impression is that her ear pain and fullness continue to represent symptoms consistent with TMJ syndrome. With tenderness at the tip of the mastoid this may also were present myofascial pain. She does admit to some sense of imbalance which can be consistent with cervical vertigo associated with myofascial pain. Recommendation has been made for referral to physical therapy to address myofascial pain of the neck and shoulders and also TMJ syndrome. Since she does live a distance away [facility]. In regards to her sore throats I recommended she try Prilosec for one month on a regular basis to see if has any impact. If it does than this most likely represents reflux disease causing sore throatand cough. 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 Jorge Morales PA-C Department of Otolaryngology [facility] [place] [address] Office Phone - documented in this encounter Plan of Treatment Upcoming Encounters Date Type Department Care Team (Late st Contact Info) Description 09/21/2024 8:15 AM EST Routine Obstetrics [place] [address] Emili Cabrera MD [facility] [place] [address] 09/26/2024 6:00 PM EST Appointment [facility] [place] [address] 10/16/2024 [place] [address] Dudley Aguilar MD [facility] OBSTET[place] [address] 11/08/2024 10:00 AM EST Hospital Encounter [place] [address] Arrived documented as of this encounter Visit Diagnoses Diagnosis Ear pain, bilateral- Primary TMJ syndrome Other specified temporomandibular joint disorders documented in this encounter Care Teams Metal Tank Builder Relationship Specialty Start Date End Date [place] [address] PCP - General 09/03/12 03/21/19 documented as of this encounter
--- OUTSIDE RECORDS SUMMARY | 2024-09-20 11:17 | XMS_ITS | Encounter Summary ---
Author Organization [facility] Address [address] [place] [address] Care Team Providers Care Floriculture Professor Name Role Phone None, Provider Primary Care Provider Unavailabl e Reason for Visit * Reason Comments Cough Dizziness Cough, dizziness and not feeling well for the past week. Chills, no known fevers. Pt states she has defibrilator and has had a cold achey feeling at the site as well. Encounter Details Date Type Department Care Team (Late st Contact Info) Description 09/03/2022 12:04 EST - 09/03/2022 15:17 EST Emergency [facility] Emergency Department [address] [place] [id number] Sergo Reynoso MD [address] [place] [address] Upper respiratory tract infection, unspecified type (Primary Dx) Discharge Disposition: Home or Self Care Social History Tobacco Use Types Packs/Day Years Used Date Smoking Tobacco: Never Assessed Interpersonal Safety Answer Date Record ed Physically Hurt Never 05/21/2020 Verbally Threaten Not on file 05/21/2020 Comments No Sex and Gender Information Value Date Recorded Sex Assigned at Not on file Legal Sex Female 18:29 EST Gender Identity Female 09/03/2022 13:23 EST Sexual Orientation Not on file COVID-19 Exposure Response Date Recorded In the last 10 days, have yo u been in contact with someone who was confirmed or suspected to have Coronavirus/COVID-19? No / Unsure 09/03/2022 12:04 EST documented as of this encounter Last Filed Vital Signs Vital Sign Reading Time Taken Comments Blood Pressure 153/82 09/03/2022 1332 EST Pulse - - Temperature 36.1 ??C (97 ??F) 09/03/2022 1204 EST Respiratory Rate 18 09/03/2022 1204 EST Oxygen Saturation 100% 09/03/2022 1332 EST Inhaled Oxygen Concentration - - Weight - - Height - - Body Mass Index - - documented in this encounter Functional Status * Are you deaf or do you have serious difficulty hearing? Answer Date of Assessment Author No 09/03/2022 12:02 EST Dee Whitley RN documented as of this encounter Discharge Instructions * Discharge Instructions* Sergo Reynoso MD - 09/03/2022 14:47 EST [facility] Emergency Department Discharge Instructions Diagnosis: Likely upper respiratory tract infection-your COVID and influenza tests were negative. Your test was negative. Your lab work was reassuring. Your chest x-ray did not show any evidence of pneumonia Instructions / expected course of illness: Symptoms should improve over the next several days For pain you can take: Ibuprofen (also known as advil or motrin) 400-600mg Acetaminophen (known as Tylenol) 650mg You can alternate these every 3 hours or take them together every 6 hours. Follow up: With your primary care provider as needed Return Precautions: If you have significant worsening of your symptoms especially significant worsening difficulty breathing, chest pain, or other symptoms that are particularly concerning to you please return to the emergency room for reevaluation. documented in this encounter Medications at Time of Discharge clonazepam (KLONOPIN) 0.5 mg tablet Take 0.5 mg by mouth 3 times daily. DIPHENHYDRAMINE HCL (BENADRYL ALLERGY ORAL) Take by mouth as needed. doxepin (SINEQUAN) 25 mg capsule Take 25 mg by mouth twice a week. labetalol (NORMODYNE) 100 mg tablet Take 100 mg by mouth daily. ondansetron (ZOFRAN) 4 mg tablet Take 4 mg by mouth as needed for Nausea. documented as of this encounter Discharge Disposition Disposition Code Departure Means Destination Comment s Home or Self Assisted Pt discharged home with all personal belongings & discharge paperwork. IV removed & VSS upon discharge. documented in this encounter ED Notes * Ana Gilbert - 09/03/2022 1230 EST 12 Lead EKG Performed by Ana Gilbert and shown to Sergo Reynoso MD. * Sergo Reynoso MD - 09/03/2022 1210 EST Emergency Department Visit Assessment and ED Course 37-year-old woman with a history of cardiac pacemaker placement following reported cardiac arrest in October of this year presents for evaluation of roughly 1 week of cough and dizziness. On exam, vital signs reassuring. She reports sinus pressure and congestion, occasional cough. Overall, symptoms seem quite consistent with likely viral URI. Lab work ordered due to recent cardiac event and does not show any evidence of major electrolyte abnormality. EKG reassuring. Chest x-ray without evidence of consolidation. Suspicion for PE is low-have considered this given that she is 4 weeks but with nasal congestion, sinus pain and pressure her suspicion for PE is low. Final diagnoses: Upper respiratory tract infection, unspecified type Disposition: Discharged Chief complaint: Cough and dizziness HPI Aniya Luque is a 37 y.o. female who presents to the ED for the above History of a pacemaker-states that she had a cardiac arrest in October of this year and had a pacemaker placed at [facility] though she is not sure exactly what the underlying cause was. She states that for the last 2 weeks or so she has had recurrent symptoms of cough, nasal congestion, sinus pain and pressure, slight shortness of breath. She denies any significant nausea or vomiting. Does report lack of appetite. No significant pain in her chest, no pain with deep inspiration reported. No history of DVT or PE reported. She went to urgent care when her symptoms started 2 weeks ago and got a prescription for azithromycin and prednisone. States that her symptoms improved slightly but have returned. History was provided by: Patient Patient's pertinent PMH, FH, SH were reviewed and edited as necessary. ROS A 10-point review of systems was performed. The patient answered negative to all questions with theexceptions of those explicitly detailed as positives in the HPI. Pertinent negatives are also explicitly stated. Physical Exam BP (!) 153/82 Temp 36.1 ??C (97 ??F) Resp 18 SpO2 100% A medical screening exam was performed. Physical Exam Constitutional: General: She is not in acute distress. Appearance: She is well-developed. HENT: Head: Normocephalic and atraumatic. Eyes: General: No scleral icterus. Conjunctiva/sclera: Conjunctivae normal. Pupils: Pupils are equal, round, and reactive to light. Cardiovascular: Rate and Rhythm: Normal rate and regular rhythm. Heart sounds: Normal heart sounds. Pulmonary: Effort: Pulmonary effort is normal. No respiratory distress. Breath sounds: Normal breath sounds. No stridor. Comments: Clear lung sounds bilateral Abdominal: General: There is no distension. Palpations: Abdomen is soft. Tenderness: There is no abdominal tenderness. There is no guarding. Musculoskeletal: General: No tenderness. Normal range of motion. Cervical back: Normal range of motion and neck supple. Skin: General: Skin is warm and dry. Findings: No erythema. Neurological: Mental Status: She is alert and oriented to person, place, and time. Psychiatric: Behavior: Behavior normal. Thought Content: Thought content normal. An EKG was obtained and independently interpreted. Sinus bradycardia, normal axis, normal intervals, no AV block, no QT prolongation, no ST elevation or depression suggesting acute ischemia. Delayed R wave transition. Imaging obtained was reviewed and independently interpreted. Laboratory results independently reviewed. Procedures Procedures documented in this encounter Plan of Treatment Not on file documented as of this encounter Procedures Procedure Name Priority Date/Time Associated Diagnosis Comments ECG REPORT - SCANNED 09/03/2022 22:09 EST TROPONIN I STAT 09/03/2022 13:30 EST QUANT BETA HCG, STAT Add-on 09/03/2022 13:30 EST MAGNESIUM STAT 09/03/2022 13:30 EST COMPREHENSIVE METABOLIC PANEL (CMP) STAT 09/03/2022 13:30 EST UA WITH REFLEX SEDIMENT (CULTURE IF POS) STAT 09/03/2022 13:29 EST COMPLETE BLOOD COUNT AND DIFFERENTIAL STAT 09/03/2022 13:29 EST XR CHEST PORTABLE 1 VIEW STAT 09/03/2022 13:09 EST ZZCOVID-19 [facility] (TESTING ONLY) STAT 09/03/2022 12:30 EST COVID-19 TESTING STAT 09/03/2022 12:3 0 EST ZZHN INFLUENZA A AND B, RSV PCR STAT 09/03/2022 12:30 EST EKG 12-LEAD STAT 09/03/2022 12:26 EST documented in this encounter Results * ECG REPORT - SCANNED (09/03/2022 22:09 EST) 09/03/2022 22:0 9 EST us Scan 2 Parts Control Clerk PROCEDURE/MINOR SURGICAL OR DERABLES Final Result * QUANT BETA HCG, (09/03/2022 13:30 EST) Beta HCG Quant, <5 <5 mIU/mL 09/03/2022 14:45 EST [facility] Comment: NOTE: : Negative: Less than 5mIU/mL Indeterminant: Between 5 and 25 mIU/mL, recommend repeat testing in 48 hours Positive: Greater than 25 mIU/mL The results of this assay can be falsely lowered due to the consumption of Biotin. Blood VENOUS BLOOD / Unknown Venipuncture / Unknown 09/03/2022 13:30 EST 09/03/2022 13:36 EST us Sergo Reynoso MD CHEMISTRY & BLOOD GAS ORDERAB LES Final Result [facility] [address] [place] [address] * TROPONIN I (09/03/2022 13:30 EST) [facility] Troponin I (ng/mL) <0.034 <0.034 ng/mL 09/03/2022 14:05 EST [facility] Blood VENOUS BLOOD / Unknown Venipuncture / Unknown 09/03/2022 13:30 EST 09/03/2022 13:36 EST Narrative [facility] - 09/03/2022 14:05 EST The results of this assay can be falsely lowered due to the consumption of Biotin. us Sergo Reynoso MD CHEMISTRY & BLOOD GAS ORDERAB LES Final Result Performing Organization Address City/[facility]/ZIP Co de Phone Number [facility] [address] [place] [address] * MAGNESIUM (09/03/2022 13:30 EST) [facility] Magnesium 2.2 1.7 - 2.8 mg/dL 09/03/2022 13:53 EST [facility] Blood VENOUS BLOOD / Unknown Venipuncture / Unknown 09/03/2022 13:30 EST 09/03/2022 13:36 EST us Sergo Reynoso MD CHEMISTRY & BLOOD GAS ORDERAB LES Final Result Performing Organization Address City/[facility]/ZIP Co de Phone Number [facility] [address] [place] [address] * (ABNORMAL) COMPREHENSIVE METABOLIC PANEL (CMP) (09/03/2022 13:30 EST) [facility] Sodium 141 136 - 145 mmol/L 09/03/2022 13:53 [facility] Potassium 4.2 3.5 - 5.0 mmol/L 09/03/2022 13:53 [facility] Chloride 106 96 - 110 mmol/L 09/03/2022 13:53 [facility] CO2 Total 26 22 - 32 mmol/L 09/03/2022 13:53 [facility] Glucose 83 70 - 100 mg/dL 09/03/2022 13:53 [facility] BUN 11 10 - 26 mg/dL 09/03/2022 13:53 [facility] Creatinine 0.86 0.52 - 1.04 mg/dL 09/03/2022 13:53 [facility] eGFR 89 >60 mL/min/1.7 3m2 09/03/2022 13:53 [facility] Total Protein 8.1 6.3 - 8.2 g/dL 09/03/2022 13:53 [facility] Albumin 5.1(H) 3.4 - 4.9 g/dL 09/03/2022 13:53 [facility] Alkaline Phosphatase 72 38 - 126 U/L 09/03/2022 13:53 [facility] AST 24 15 - 46 U/L 09/03/2022 13:53 [facility] ALT 32 <35 U/L 09/03/2022 13:53 [facility] Bilirubin, Total 0.5 <1.4 mg/dL 09/03/20 13:53 [facility] Calcium 9.3 8.5 - 10.5 mg/dL 09/03/2022 13:53 [facility] Albumin/Globulin Ratio 1.7 1.0 - 2.5 09/03/2022 13:53 [facility] Anion Gap 9 5 - 14 09/03/2022 13:53 [facility] Blood VENOUS BLOOD / Unknown Venipuncture / Unknown 09/03/2022 13:30 EST 09/03/2022 13:36 EST us Sergo Reynoso MD CHEMISTRY & BLOOD GAS ORDERAB LES Final Result [facility] [address] [place] [address] * (ABNORMAL) COMPLETE BLOOD COUNT AND DIFFERENTIAL (09/03/2022 13:29 EST) WBC 9.58 4.00 - 12.40 K/cmm 09/03/2022 13:46 [facility] RBC 5.36(H) 3.86 - 5.04 M/cmm 09/03/2022 13:46 [facility] Hemoglobin 15.9(H) 11.6 - 15.2 gm/dL 09/03/2022 13:46 [facility] HCT 48.9(H) 34.9 - 44.4 % 09/03/2022 13:46 [facility] MCV 91 81 - 98 fl 09/03/2022 13:46 [facility] MCH 29.7 26.7 - 33.3 pg 09/03/2022 13:46 [facility] MCHC 32.5 32.1 - 35.9 gm/dL 09/03/2022 13:46 [facility] RDW-CV 14.2 <14.7 % 09/03/2022 13:46 [facility] RDW-SD 47.6 <50.4 fl 09/03/2022 13:46 [facility] PLT 254 141 - 377 K/cmm 09/03/2022 13:46 [facility] MPV 11.0 9.5 - 12.7 fl 09/03/2022 13:46 [facility] % Neutrophils 50.6 % 09/03/2022 13:46 [facility] % Lymphocytes 37.9 % 09/03/2022 13:46 [facility] % Monocytes 6.2 % 09/03/2022 13:46 [facility] % Eosinophils 4.4 % 09/03/2022 13:46 [facility] % Basophils 0.6 % 09/03/2022 13:46 [facility] % Immature Grans 0.3 % 09/03/20 13:46 [facility] Absolute Neutrophils 4.85 2.20 - 8.85 K/cmm 09/03/2022 13:46 [facility] Absolute Lymphocytes 3.63(H) 1.09 - 3.30 K/cmm 09/03/2022 13:46 [facility] Absolute Monocytes 0.59 0.10 - 0.80 K/cmm 09/03/2022 13:46 [facility] Absolute Eosinophils 0.42 0.03 - 0.61 K/cmm 09/03/2022 13:46 [facility] ABS Basophils 0.06 0.01 - 0.11 K/cmm 09/03/2022 13:46 [facility] Absolute Immature Grans 0.03 0.00 - 0.06 K/cmm 09/03/2022 13:46 [facility] Type of Differential: Auto 09/03/2022 13:46 [facility] Blood VENOUS BLOOD / Unknown Venipuncture / Unknown 09/03/2022 13:29 EST 09/03/2022 13:36 EST us Sergo Reynoso MD PACKAGES & DNA PROBE ORDERABL ES Final Result [facility] [address] [place] [address] * UA WITH REFLEX SEDIMENT (CULTURE IF POS) (09/03/2022 13:29 EST) Color UA Yellow Colorless to Dark Yellow 09/03/2022 13:39 [facility] Clarity UA Clear Clear 09/03/2022 13:39 [facility] Glucose UA Negative Negative 09/03/2022 13:39 [facility] Bilirubin UA Negative Negative 09/03/2022 13:39 [facility] Ketones UA Negative Negative 09/03/2022 13:39 [facility] Specific [place], Urine <=1.005 1.001 - 1.035 09/03/2022 13:39 [facility] Blood UA Negative Negative 09/03/2022 13:39 [facility] pH, UA 6.5 4.6 - 8.0 09/03/2022 13:39 [facility] Protein UA Negative Negative 09/03/2022 13:39 [facility] Urobilinogen UA 0.2 0.2 , 1.0, Normal mg/dL 09/03/2022 13:39 [facility] Nitrite UA Negative Negative 09/03/2022 13:39 EST [facility] Leukocyte Esterase UA Negative Negative 09/03/2022 13:39 EST [facility] Urine URINE SPECIMEN COLLECTION, CLEAN CATCH / Unknown Urine Collect / Unknown 09/03/2022 13:29 EST 09/03/2022 13:36 EST us Sergo Reynoso MD URINALYSIS ORDERABLES Final R esult Performing Organization Address City/State/[facility] Co de Phone Number [facility] [address] [place] [address] * XR CHEST PORTABLE 1 VIEW (09/03/2022 13:09 EST) Anatomical Region Laterality Modality Computed Radiogr aphy 09/03/2022 13:1 4 EST Impressions 09/03/2022 13:14 EST No acute abnormality. Narrative 09/03/2022 13:14 EST INDICATION: cough, sob. COMPARISON: Chest x-ray 08/05/2019. TECHNIQUE: X-ray chest portable 1 view. FINDINGS: The cardiomediastinal silhouette and pulmonary vasculature are within normal limits. The lungs are clear. No pleural effusion or pneumothorax is identified. No acute bone or joint abnormality is seen. A metallic stimulator device is now present superimposed over the mid thoracic spine. Procedure Note Nickolas Balbuena MD - 09/03/2022 INDICATION: cough, sob. COMPARISON: Chest x-ray 08/05/2019. TECHNIQUE: X-ray chest portable 1 view. FINDINGS: The cardiomediastinal silhouette and pulmonary vasculature are withinnormal limits. The lungs are clear. No pleural effusion or pneumothorax isidentified. No acute bone or joint abnormality is seen. A metallicstimulator device is now present superimposed over the mid thoracicspine. IMPRESSION No acute abnormality. us Sergo Reynoso MD IMG DIAGNOSTIC IMAGING ORDERA BLES Final Result * COVID-19 [facility] (TESTING ONLY) (09/03/2022 12:30 EST) Swab ENTIRE NASOPHARYNX / Unknown Swab / Unknown 09/03/2022 12:30 EST 09/03/2022 12:31 EST us Sergo Reynoso MD MICROBIOLOGY - GENERAL ORDERA BLES Final Result Performing Organization Address [facility] Co de Phone Number [facility] [address] [place] [address] * COVID-19 TESTING (09/03/2022 12:30 EST) COVID-19 rt-PCR Result Negative Negative 09/03/2022 13:25 EST [facility] Performing Lab [facility] Lab 09/03/2022 13:25 EST [facility] Swab ENTIRE NASOPHARYNX / Unknown Swab / Unknown 09/03/2022 12:30 EST 09/03/2022 12:31 EST us Sergo Reynoso MD MICROBIOLOGY - GENERAL ORDERA BLES Final Result Performing Organization Address [facility] Phone Number [facility] [address] [place] [address] * INFLUENZA A AND B,RSV PCR (09/03/2022 12:30 EST) Pathologist [facility] FLU A RNA Result (FLARES) Negative Negative 09/03/2022 13:25 EST [facility] FLU B RNA Result (FLBRES) Negative Negative 09/03/2022 13:25 [facility] RSV RNA Result (RSVRES) Negative Negative 09/03/2022 13:25 EST [facility] Swab ENTIRE NASOPHARYNX / Unknown Swab / Unknown 09/03/2022 12:30 EST 09/03/2022 12:31 EST us Sergo Reynoso MD MICROBIOLOGY - GENERAL ORDERA BLES Final Result Performing Organization Address City/[facility] Co de Phone Number [facility] [address] [place] [address] * EKG 12-LEAD (09/03/2022 12:26 EST) 09/03/2022 12:2 6 EST Narrative [facility] EPIPH09/03/2022 14:37 EST ? [facility] ? Test Date: ?2022-09-03 Pat Name: ? ANIYA LUQUE ? Department: ? Room: ? C07 Gender: ? Female ? Payroll Human Resources Assistant: ?? MIKAYLA : ?1985 ? Requested By: MANNY ZHOU B Order Number: [id number] ? Reading MD: ?? DANTE MASON MD ? Measurements Intervals ?[place] ? Rate: ? 54 ? P: ?29 MS: ? 128 ?QRS: ?4 QRSD: ? 86 ? T: ?31 QT: ? 442 ? QTc: ?419 ? Interpretive Statements Sinus bradycardia Poor R-wave progression No previous ECG available for comparison I reviewed the tracing and have either agreed or edited the findings in this report. Electronically Signed On 09-03-2022 14:37:22 EST by DANTE MASON MD. Procedure Note Dante Mason MD - 09/03/2022 [facility] Test Date: 2022-09-03 Pat Name: ANIYA LUQUE Department: Room: 7 Gender: Female Payroll Human Resources Assistant: MIKAYLA : 1985 Requested By: MANNY Drew Order Number: [id number] Darrian MD: DANTE MASON MD Measurements Intervals [place] Rate: 54 P: 29 MS: 128 QRS: 4 QRSD: 86 T: 31 QT: 442 QTc: 419 Interpretive Statements Sinus bradycardia Poor R-wave progression No previous ECG available for comparison I reviewed the tracing and have either agreed or edited the findings inthis report. Electronically Signed On 09-03-2022 14:37:22 EST by DANTE GIL. Sergo Reynoso MD CARDIAC ECG ORDERABLES Final Result [facility] documented in this encounter Visit Diagnoses Diagnosis Upper respiratory tract infection, unspecified type- Primary documented in this encounter Administered Medications Inactive Administered Medications - up to 3 most recent administrations Medication Order MAR Action Action Date Dose Rate Site lactated ringers BOLUS 1,000 mL 1,000 mL, intravenous, NOW X1, 1 dose, On Fri09/03/22 at 1345, STAT Given 09/03/2022 13:30 EST 1,000 mL documented in this encounter Active and Recently Administered Medications Times are shown in EST. Scheduled Medication Order 09/01/2022 09/02/2022 09/03/2022 lactated ringers BOLUS 1,000 mL (COMPLETED) 1,000 mL, intravenous, NOW X1, 1 dose, On Fri09/03/22 at 1345, STAT 1330 (Given - Provid er: Romana Saldivar RN) documented in this encounter Orders Medications Ordered That [place] ht Not Have Been Administered Count Last Ordered Date First Ordered Date lactated ringers BOLUS 1,000 mL 1 2 documented in this encounter Additional Health Concerns Infection Onset Date Last Indicated Resolved Time R/O COVID-19 09/03/2022 09/03/2022 09/08/2022 22:1 8 EST documented as of this encounter Care Teams Floriculture Professor Relationship Specialty Start Date End Date None, Provider PCP - General 09/03/22 documented as of this encounter
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
--- OUTSIDE RECORDS SUMMARY | 2024-09-20 11:17 | XMS_ITS | Encounter Summary ---
[place] [address] Care Team Providers Care Machine Design Checker Name Role Phone Mary Trotter ADRIAN Primary Care Provider +1- [phone] Reason for Visit * Reason Comments Follow-up Palpitations Encounter Details Date Type Department Care Team (Late st Contact Info) Description 01/17/2016 2:30 PM EDT Office Visit [address] [address] Issac Collins Jr., MD [address] [place] [address] Chest pain, unspecified chest pain type; Palpitations; Elevated blood pressure Social History Tobacco Use Types Packs/Day Years [...] Sign Reading Time Taken Comments Blood Pressure 120/82 01/17/2016 2:45 PM EDT Pulse 90 01/17/2016 2:45 PM EDT Temperature - - Respiratory Rate 14 01/17/2016 2:45 PM EDT Oxygen Saturation - - Inhaled Oxygen Concentration - - Weight 66.2 kg (146 lb) 01/17/2016 2:45 PM EDT Height 162.6 cm (5' 4) 01/17/2016 2:45 PM EDT Body Mass Index 25.06 01/17/2016 2:45 PM EDT documented in this encounter Progress Notes * Issac Collins Jr., MD - 01/17/2016 3:26 PM EDT Subjective: Patient ID: Aniya Luque is a 30 y.o. female. Chief Complaint Patient presents with ??? Follow-up ??? Palpitations HPI I had seen her in 2013 for chest pain and HTN- workup was unremarkable (see below) and made herPRN follow up. She did well until this winter when she started having palpitations around the time she became . She gets a feeling of heart racing on and off during the day, not related to activity. She has occasional dizziness but no dyspnea or syncope. She also gets fleeting sharp chest pain, usually at rest. Review of Systems more exhausted since - off most of her previous meds Allergies Allergen Reactions ??? Morphine Unknown reaction ??? Penicillins Rash ??? Seroquel [Quetiapine] Made head feel loopy. Current Outpatient Prescriptions Medication Sig Dispense Refill ??? doxepin (SINEQUAN) 25 mg Capsule Take [...] mouth every 6 hours as needed. ??? VITS CMB W-O CA NO.2 ( VITAMIN NO.2 ORAL) Take 1 tablet by mouth daily. No current facility-administered medications for this visit. Patient Active Problem List Diagnosis ??? Chest pain ETT 2013- negative ST III Echo 2013 ??Normal LV size and function, trivial TR, mild PI ??? Skin disease ??? Anxiety ??? Depression ??? Asthma Rx PRN albuterol Pulmonary workup negative 2007 (in [facility]) ??? Hypertension Onset 2013, variable BP highs of 160-170 systolic, then normal ??? Tachycardia Objective: Physical Exam BP 120/82 mmHg Pulse 90 Resp 14 Ht 162.6 cm (5' 4) Wt 66.225 kg (146 lb) BMI 25.05 kg/m2 NAD No JVD/HJR Chest clear Cor RR, 1/6 systolic murmur mid sternum Abd benign, mildly enlarged Ext no edema EKG: NSR 76, poor R progression, no change from previous Assessment and Plan: Most likely sinus tachycardia due to anxiety, but must identify with a loop recorder to be sure shedoes not have an SVT. If she does have a significant arrhythmia she could go on metoprolol during her BP good today CP- likely non cardiac Reviewed need to quit smoking Follow up depends on loop recorder result documented in this encounter Plan of Treatment Upcoming Encounters Date Type Department Care Team (Late st Contact Info) Description 09/21/2024 8:15 AM EST Routine Obstetrics [place] [phone] Emili Cabrera MD [facility] MATERNAL [place] [address] 09/26/2024 6:00 PM EST Appointment [facility] [address] 10/16/2024 Hospital [place] [address] Dudley Aguilar MD [facility] OBSTETRICS [place] [address] 11/08/2024 10:00 AM EST Hospital Encounter Non-Invasive [place] [address] [phone] Arrived documented as of this encounter Procedures Procedure Name Priority Date/Time Associated Diagnosis Comments ECG SCAN 01/19/2016 12:00 AM EDT documented in this encounter Results * SCAN DOC: ECG (01/19/2016 12:00 AM EDT) Scanning Provider MEDIA MGR SCAN EXT O RDR/RSLT documented in this encounter Visit Diagnoses Diagnosis Chest pain, unspecified chest pain type Palpitations Elevated blood pressure Elevated blood pressure reading without diagnosis of hypertension documented in this encounter Care Teams Machine Design Checker Relationship Specialty Start Date End Date Mary Trotter APRN [facility] [address] PCP - General 09/03/12 03/21/19 documented as of this encounter
--- OUTSIDE RECORDS SUMMARY | 2024-09-20 11:17 | XMS_ITS | Encounter Summary ---
Author Organization [facility] [place] [address] Care Team Providers Care Cargo Agent Name Role Phone Mary Trotter APRN Primary Care Provider +1- [phone] Encounter Details Date Type Department Care Team (Late st Contact Info) Description 03/31/2014 External Results [place] [address] Rosalinda Whitehead AUD [facility] [place] [address] Social History Tobacco Use Types Packs/Day Years [...] AM EST Routine Obstetrics [place] [address] Emili Cabrera MD [facility] [place] [address] 09/26/2024 6:[address] [facility] [place] [phone] 10/16/2024 Hospital [place] [address] Dudley Aguilar MD [facility] DR OBSTET[place] [address] 11/08/2024 10:00 AM EST Hospital Encounter Non-[place] [address] Arrived documented as of this encounter Procedures Procedure Name Priority Date/Time Associated Diagnosis Comments AUDIOLOGY SCAN Routine 03/30/2014 documented in this encounter Results * Scan Doc: Audiology (03/30/2014) Rosalinda Whitehead AUD MEDIA MGR SCAN EXT ORDR/RSLT documented in this encounter Visit Diagnoses Not on filedocumented in this encounter Care Teams Cargo Agent Relationship Specialty Start Date End Date Mary Trotter APRN [facility] [place] [address] PCP - General 09/03/12 03/21/19 documented as of this encounter
--- OUTSIDE RECORDS SUMMARY | 2024-09-20 11:17 | XMS_ITS | Encounter Summary ---
Author Organization [facility] [place] [address] Care Team Providers Care Licensed Pesticide Applicator Name Role Phone Mary Trotter ADRIAN Primary Care Provider +1- [phone] Encounter Details Date Type Department Care Team (Late st Contact Info) Description 03/30/2014 3:15 PM EDT Office Visit Audiology at [address] [address] Rosalinda Whitehead AUD [facility] [place] [address] Otalgia, bilateral (Primary Dx); Dizziness; Other examination of ears and hearing Discharge Disposition: Home Social History Tobacco Use [...] as of this encounter Progress Notes * Rosalinda Whitehead AUD - 03/30/2014 4:02 PM EDT [place] [address] Aniya Luque was seen on 03/30/2014 for an audiologic evaluation in conjunction with EDEN Pinon in Otolaryngology. Please refer to the scanned audiogram listed under Scanned documents for findings, impressions and recommendations. It may take up to 24 hours for the audiogram to be [place] [address] documented in this encounter Plan of Treatment Upcoming Encounters Date Type Department Care Team (Late st Contact Info) Description 09/21/2024 8:15 AM EST Routine Obstetrics [place] [address] Emili Cabrera MD [facility] [place] [address] 09/26/2024 6:00 PM EST Appointment [facility] [place] [address] 10/16/2024 [place] [address] Dudley Aguilar MD [facility] DR OBSTETRICS [place] [address] 11/08/2024 10:00 AM EST Hospital Encounter Non-[place] [address] Arrived documented as of this encounter Visit Diagnoses Diagnosis Otalgia, bilateral- Primary Dizziness Dizziness and giddiness Other examination of ears and hearing documented in this encounter Care Teams Licensed Pesticide Applicator Relationship Specialty Start Date End Date Mary Trotter APRN [facility] [place] [address] PCP - General 09/03/12 03/21/19 documented as of this encounter
--- OUTSIDE RECORDS SUMMARY | 2024-09-20 11:17 | XMS_ITS | Encounter Summary ---
Author Organization [facility] [place] [address] Care Team Providers Care Hand Bander Name Role Phone Mary Trotter [employer]ICAL [employer]GEANT Primary Care Provider +1- [phone] Encounter Details Date Type Department Care Team (Late st Contact Info) Description 08/10/2014 4:45 PM EDT Ancillary Appointment [address] [address] Issac Collins Jr., MD [address] [place] [address] Social History Tobacco Use Types Packs/Day Years [...] AM EST Routine Obstetrics [place] [address] Emili Cabrera MD [facility] [place] [address] 09/26/2024 6:00 PM EST Appointment [facility] [place] [address] 10/16/2024 [place] [address] Dudley Aguilar MD [facility] DR OBSTETRICS [place] [address] 11/08/2024 10:00 AM EST Hospital Encounter Non-Invasive [place] [address] Arrived documented as of this encounter Procedures Procedure Name Priority Date/Time Associated Diagnosis Comments ECHOCARDIOGRAM TRANSTHORACIC Routine 08/10/2014 documented in this encounter Results * Echo Transthoracic (Complete) (08/10/2014) EF 65% Anatomical Region Laterality Modality Other Narrative 08/10/2014 Echocardiogram Final Report ??Aniya Luque ??D.O.B.1985 [place] [id number] PCP: MARY TROTTER APRN ??Indication: dyspnea, HTN Date of Study: 08/10/2014 Procedure: M- Mode, 2D, Doppler, and Color Flow Doppler Quality: ?? good, digital study Measurements ?(N = normal) Ascending Aorta: 2.7 (N <3.2), Aortic Root: 2.8 ??(N<3.7), Aortic Cusp:x (N >1.4) Left Atrium: 11 (N<20), Right Atrium:10(N<17 ) LV Septum:1.1 (N <1.1),LV diastolic: 4.4(N <5.6), LV posterior:0.8(N <1.1),RV: x(N<0.7) Diastolic- E/A :1.3(N > 1.0), DT:165 (N<240), IVRT: 100 (N <100), E': 19 Left Atrium: normal Mitral Valve: normal, ??No regurgitation Left Ventricle: normal size EF 65% ?? diastolic function normal Segments: N-normal, PN- probably normal, H-hypokinetic, SH-severely hypo, A-akinetic Anteroseptal: base- N,mid- N, apex- N Anterior: base- N, mid- N, apex- N Anterolateral:base- N, mid- N, apex- N Posterolateral:base- N, mid-N Inferior: base-N,mid-N, apex-N Inferoseptal: ??Base-N,mid-N Aortic Valve: normal ??No regurgitation Aorta: normal Right Atrium: normal Tricuspid Valve: normal trivial regurgitation Right Ventricle: normal Pulmonic Valve: normal mild PI Pericardium: normal comments/summary: ??Normal LV size and function, trivial TR, mild PI Electronically signed: Issac Collins Jr, MD [facility] Historical Provider ECHO ORDERABLES documented in this encounter Visit Diagnoses Not on filedocumented in this encounter Care Teams Hand Bander Relationship Specialty Start Date End Date Mary Trotter APRN [facility] [place] [address] PCP - General 09/03/12 03/21/19 documented as of this encounter
--- OUTSIDE RECORDS SUMMARY | 2024-09-20 11:17 | XMS_ITS | Encounter Summary ---
[place] [address] Care Team Providers Care C D Reactor Operator Name Role Phone Mary Trotter APRN Primary Care Provider +1- [phone] Reason for Visit * Reason Comments Shortness of Breath Encounter Details Date Type Department Care Team (Late Contact Info) Description 08/10/2014 3:00 PM EDT Procedure visit [address] [address] Issac Collins Jr., MD [address] [place] [address] WILDE (dyspnea on exertion) (Primary Dx) Social History Tobacco Use Types [...] as of this encounter Progress Notes * Issac Collins Jr., MD - 08/10/2014 5:09 PM EDT ETT negative stage III documented in this encounter Plan of Treatment Upcoming Encounters Date Type Department Care Team (Late st Contact Info) Description 09/21/2024 8:15 AM EST Routine Obstetrics [place] [address] Emili Cabrera MD [facility] [place] [address] 09/26/2024 6:00 PM EST Appointment [facility] [place] [address] 10/16/2024 Hospital [place] [address] Dudley Aguilar MD [facility] DR OBSTETRICS [place] [address] 11/08/2024 10:00 AM EST Hospital Encounter Non-[place] [address] Arrived documented as of this encounter Procedures Procedure Name Priority Date/Time Associated Diagnosis Comments STRESS TEST, EXERCISE (TREADMILL) Routine 08/10/2014 documented in this encounter Results * Stress Test, Exercise (Treadmill) (08/10/2014) Anatomical Region Laterality Modality Other Narrative 08/10/2014 Exercise Stress Test- Final Report ?? Aniya Luque : 1985 [place] [address] Primary Physician: ??MARY TROTTER, AUDIT REVIEWER ??Indication: dyspnea on exertion Date: 08/10/2014 Summary: Max Exercise: ??7:00, 1:00 ??Stage III ??Vern ?? 8.5 ?? METS Max HR: ? 164> 85 % PMR(161) Max BP: ??168/[address] change: ??none Reason for Termination: sick feeling, dyspnea Impression: good exercise tolerance, no ischemia, low probability of obstructive coronary artery disease Details: Medication: none day of test Risk Factors: ?? HTN, Smoking Resting EKG: NSR 100, normal ?Resting BP: 132/88 Exercise per Vern protocol Arrhythmias: none Recovery: ??BP ?? -> ?? 152/86 ?HR ?? -> 100 Arrhythmias: none Electronically signed: Issac Collins Jr, MD [facility] Historical Provider MD CARDIAC SERVICES ORDERABLES documented in this encounter Visit Diagnoses Diagnosis WILDE (dyspnea on exertion)- Primary Other dyspnea and respiratory abnormality documented in this encounter Care Teams C D Reactor Operator Relationship Specialty Start Date End Date Mary Trotter APRN [facility] [place] [address] PCP - General 09/03/12 03/21/19 documented as of this encounter
--- OUTSIDE RECORDS SUMMARY | 2024-09-20 11:17 | XMS_ITS | Encounter Summary ---
Author Organization [facility] Address [facility] [place] [address] Care Team Providers Care Sporting Goods Sales Manager Name Role Phone Mary Trotter [employer] SUPPORT Primary Care Provider [phone]- [phone] Reason for Visit * Reason Comments Follow-up Otalgia; persistant allergic rhinitis Encounter Details Date Type Department Care Team (Late st Contact Info) Description 05/09/2015 2:15 PM EDT [place] [address] Jorge Morales PA [facility] [place] [address] TMJ syndrome Discharge Disposition: Home Social History [...] Sign Reading Time Taken Comments Blood Pressure 154/84 05/09/2015 2:05 PM EDT Pulse 65 05/09/2015 2:05 PM EDT Temperature - - Respiratory Rate - - Oxygen Saturation - - Inhaled Oxygen Concentration - - Weight 62.1 kg (137 lb) 05/09/2015 2:05 PM EDT Reported by patient. Height 162.6 cm (5' 4) 05/09/2015 2:05 PM EDT Body Mass Index 23.52 05/09/2015 2:05 PM EDT documented in this encounter Progress Notes * Jorge Morales PA - 05/09/2015 3:08 PM EDT Aniya Luque is 29 years of age and returns for further otologic review regarding bilateral otalgia. This patient was seen 1 year ago for the same complaint and a few years prior for that again for the same complaint. 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 The patient reports over this past year she has had recurrent episodes of ear pain which can affectone ear or the other or both. This does not affect hearing. She does admit to some slight dizzinessat times. She did undergo treatment for neck and back issues through physical therapy. When asked this had any impact on her ear symptoms she does not recall. She only went for 1 month and did not com ply with home instruction. The primary care physician has treated her, the patient reports, approximately 12 times for ear infections with antibiotics. For a few days the ears feel better while on an antibiotic. They have alsonoted fluid in the ears at times. The patient will occasionally feel that her ears are running but when she puts tissue in the ear she notes no fluid. She also reports that she is no longer chewing gum. 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 Her audiologic evaluation demonstrates normal hearing which is symmetrical today. Tympanometry within normal limits each ear. On examination she appears healthy in no acute distress. Palpation of the neck reveals no palpable adenopathy or mass. Periauricular palpation revealed tenderness of the TMJ particular on the right side both anterior and posteriorly. Intraoral palpation of the medial aspect of the TMJ reveal tenderness on the right side less on the left. Otologic exam the operating microscope reveals eczema white changes of the external auditory meatuson the right. Tympanic membrane shows mild areas of tympanosclerosis but no middle ear pathology. The left external auditory canal was patent. Tympanic membrane is normal with mild areas of tympanosclerosis without middle ear pathology. 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 I would suggest that she speak to her dentist or primary care physician about a referral to an oral surgeon to discuss this further.Physical therapy for her neck may also be beneficial and that this can precipitate a sense of dizziness so she did with myofascial pain of the cervical spine. It may also make the ears feel full. Should all her symptoms persist despite these measures I would recommend a second opinion with one of my colleagues either Dr. Neumann or Dr. Hernandez. Jorge Morales PA-C Department of Otolaryngology [facility] [place] [address] Office Phone - documented in this encounter Plan of Treatment Upcoming Encounters Date Type Department Care Team (Late st Contact Info) Description 09/21/2024 8:15 AM EST Routine Obstetrics [place] [address] Emili Cabrera MD [facility] [place] [address] 09/26/2024 6:00 PM EST Appointment [facility] [place] [address] 10/16/2024 [place] [address] Dudley Aguilar MD [facility] [address] [place] [address] 11/08/2024 10:00 AM EST Hospital Encounter [place] [address] Arrived documented as of this encounter Visit Diagnoses Diagnosis TMJ syndrome Other specified temporomandibular joint disorders documented in this encounter Care Teams Sporting Goods Sales Manager Relationship Specialty Start Date End Date Mary Trotter APRN [facility] [address] PCP - General 09/03/12 03/21/19 documented as of this encounter
--- OUTSIDE RECORDS SUMMARY | 2024-09-20 11:17 | XMS_ITS | Encounter Summary ---
Author Organization [facility] Address [facility] [place] [address] Care Team Providers Care Manager R D Name Role Phone Mary Trotter ADRIAN Primary Care Provider [phone] Reason for Visit * Reason Comments Chest Pain * Auth/Cert Specialty Diagnoses / Procedures Referred By Nellie mckeon Referred To Contact Diagnoses Chest pain Procedures EMERGENCY OBSVO ADMIT Referral ID Status Reason Start Date Expiration Date Visits Re quested Visits Authorized [id number] 1 1 Encounter Details Date Type Department Care Team (Late st Contact Info) Description 07/04/2016 1:38 PM EDT - 07/05/2016 1:37 PM EDT Emergency [place] [address] Jasmin Smith MD [facility] [place] [address] Chest pain, unspecified type (Primary Dx); 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; Bradycardia; Other complications of the puerperium, not elsewhere classified; Chest pain, unspecified; Smoking tobacco complicating puerperium; Cigarette smoker; Encounter for long-term (current) use of other medications; Encounter for long-term (current) use of aspirin; Personal history of allergy to narcotic agent; Personal history of allergy to penicillin; Personal history of allergy to other specified medicinal agents Discharge Disposition: Home Social History Tobacco Use [...] Sign Reading Time Taken Comments Blood Pressure 165/90 07/05/2016 1:16 PM EDT Pulse 77 07/05/2016 1:16 PM EDT Temperature 36.7 ??C (98.1 ??F) 07/05/2016 5:45 AM ED T Respiratory Rate 16 07/05/2016 1:16 PM EDT Oxygen Saturation 99% 07/05/2016 1:16 PM EDT Inhaled Oxygen Concentration - - Weight 60.8 kg (134 lb) 07/05/2016 1:07 AM EDT Height - - Body Mass Index 23 01/17/2016 2:45 PM EDT documented in this encounter Discharge Instructions * Discharge Instructions* Paz Varma, ADRIAN - 07/05/2016 1:20 PM EDT Images from the original note were not included. Follow up with your doctor on Friday to review your ED stay and recheck blood pressure. Take all of your antibiotics as prescribed. Return to the ED should you have any worsening of your symptoms or if you have any concerns including but not limited to increasing shortness of breath, and/ or chest pain [facility] Chest Pain: After Your Visit Your Care Instructions There are many things that can cause chest pain. Some are not serious and will get better on their own in a few days. But some kinds of chest pain need more testing and treatment. Your doctor may have recommended a follow-up visit in the next 8 to 12 hours. If you are not getting better, you may need more tests or treatment. Even though your doctor has released you, you still need to watch for any problems. The doctor carefully checked you, but sometimes problems can develop later. If you have new symptoms or if your symptoms do not get better, get medical care right away. If you have worse or different chest pain or pressure that lasts more than 5 minutes or you passed out (lost consciousness), call 911 or seek other emergency help right away. A medical visit is only one step in your treatment. Even if you feel better, you still need to do what your doctor recommends, such as going to all suggested follow-up appointments and taking medicines exactly as directed. This will help you recover and help prevent future problems. How can you care for yourself at home? ?? Rest until you feel better. ?? Take your medicine exactly as prescribed. Call your doctor if you think you are having a problemwith your medicine. ?? Do not drive after taking a prescription pain medicine. When should you call for help? Call 911 if: ?? You passed out (lost consciousness). ?? You have severe difficulty breathing. ?? You have symptoms of a heart attack. These may include: ?? Chest pain or pressure, or a strange feeling in your chest. ?? Sweating. ?? Shortness of breath. ?? Nausea or vomiting. ?? Pain, pressure, or a strange feeling in your back, neck, jaw, or upper belly or in one or both shoulders or arms. ?? Lightheadedness or sudden weakness. ?? A fast or irregular heartbeat. After you call 911, the line painting machine operator may tell you to chew 1 adult-strength or 2 to 4 low-dose aspirin. Wait for an ambulance. Do not try to drive yourself. Call your doctor today if: ?? You have any trouble breathing. ?? Your chest pain gets worse. ?? You are dizzy or lightheaded, or you feel like you may faint. ?? You are not getting better as expected. ?? You are having new or different chest pain. Where can you learn more? Visit our health information library at [email or web address] You can also view health information on [employer], your personal patient account. Log in or sign up today. Enter A120 in the search box to learn more about Chest Pain: After Your Visit. ?? [id number] [employer]. Care instructions adapted under license by [facility]. This care instruction is for use with your licensed healthcare professional. If you have questions about a medical condition or this instruction, always ask your healthcare professional. [employer] disclaims any warranty or liability for your use of this information. Content Version: 10.4.545342; Current as of: March 23, 2014 documented in this encounter Medications at Time of Discharge Medication Sig Dispensed Refills Start Date End Date calcium carbonate (TUMS) 200 mg calcium (500 mg) Tablet, Chewable Take 1 tablet by mouth as needed. nitrofurantoin, macrocrystal-monohydrat e, (MACROBID) 100 mg Capsule Take 1 capsule by mouth 2 times daily for 7 days. 14 capsule 07/05/2016 07/12/2016 documented as of this encounter ED Notes * Tess France MD - 07/05/2016 1:37 PM EDT CLINICAL DECISION UNIT - ED ATTENDING DAY OF DISCHARGE NOTE Reason for CDU Admission: Chest Pain/Bradycardia Brief Clinical Summary: 31 y.o. female presented to ED with chest pain concerning for possible ACS.Initial evaluation in the ED did not reveal any objective evidence of cardiac ischemia or an alternative cause to explain the patient's pain. Subsequent course in the CDU also did not reveal any objective evidence of ischemia. Stress imaging was obtained and did not reveal evidence of ischemia. Thepatient is currently chest pain free with no new complaints. Discharge Vital Signs: BP 165/90 (BP Location (NBP): Right arm, Patient Position: Sitting) Pulse 77Temp 36.7 ??C (98.1 ??F) (Oral) Resp 16 Wt 60.8 kg (134 lb) SpO2 99% BMI 23 kg/m2 Medical Decision Making: Chest pain of unclear etiology. ACS has essentially been ruled out given negative serial troponin, non-ischemic serial ECGs and non- ischemic stress imaging. Other life threatening causes of chest pain were considered and felt to be unlikely. There have been no other active clinical issues identified. I have determined that the patient meets criteria for discharge at this time. The discharge plan was reviewed with the patient, they have had an opportunity to ask questions, and are in agreement with the plan. The patient was seen in conjunction with Paz Varma. Tess France MD 08/15/16 0717 * Paz Varma, INSTALLMENT DEALER - 07/05/2016 12:08 PM EDT CLINICAL DECISION UNIT - DISCHARGE SUMMARY Patient Name: Aniya Luque Patient Age: 31 y.o. Birthdate: 1985 Admit date: 07/04/2016 Discharge date and time: 07/05/2016 Attending Physician: Jasmin Smith MD Discharge Diagnoses: Atypical Chest pain History of Presentation (from ED Note): Aniya Luque is a 31 y.o. female four days post- (39 wks, induced, vaginal ) who presents to the Emergency Department with slow heart rate, chest discomfort, and dyspnea since giving . Pt reports feeling pressure on her chest and shortness of breath, and she feels that her HR has been slow. She has also had GEORGE and nausea. called EMS today. No hemoptysis, cough, or hx of clots. Of note, pt had HTN during and was on labetalol, but was taken off of it in second trimester. CDU: Patient continued to have bradycardia in the CDU overnight. Cardiology was called for reevaluation prior to her discharge. Patient was extremely anxious about her low heart rate. Symptoms of neck pain, nausea, SOB had resolved prior to discharge. Exam at Time of Discharge: BP (!) 150/94 Pulse 64 Temp 36.7 ??C (98.1 ??F) (Oral) Resp 16 Wt 60.8 kg (134 lb) SpO2 99% BMI 23 kg/m2 Alert and oriented x 3, patient able to articulate events that brought her to the ED HENT: Head: normocephalic, atraumatic, TMs pearly ellsworth, no bulging or erythema Neck: supple, full ROM, No JVD, no tracheal deviation Cardiac: bradycardia, systolic murmur appreciated, distal pulses in tact Pulmonary: respirations are equal and unlabored, lungs clear to auscultation bilaterally, no wheezes Abdomen: non tender to palpation Musculoskeletal: Full ROM, no edema, she does have some pain with palpation of chest wall. Neuro: no focal neurological deficits Skin: warm, dry, negative for rashes, diaphoresis and pallor, bruising right hand from IV removal. ? Emergency Department/Clinical Decision Unit Course: H &PE Continuous cardiac monitoring EKG TTE Laboratory Cardiology consultation CIRCULAR SAWYER HELPER consultation Summary of Important Studies and Lab Data: EKGs: Sinus bradycardia, short IL interval TTE: 1. Global left ventricular systolic function appears hyperdynamic. ??The quantitative left ventricular ejection fraction by biplane Redman's method is 74%.GLS -22.5% There are no left ventricular segmental wall motion abnormalities. 2. Right ventricular chamber size, wall thickness, and systolic function are within normal limits. 3. The cardiac valves appear structurally and functionally normal. 4. The pericardium appears normal and there is no evidence of a pericardial effusion. 5. See remainder of report for additional findings. Chest X-ray: Interval increase in heart size probably due to . No acute cardiopulmonary process Laboratory Recent Results (from the past 72 hour(s)) Basic Metabolic Panel (non-fasting) Result Value Ref Range Glucose Lvl 120 65 - 199 mg/dL BUN 10 8 - 18 mg/dL Creatinine 0.97 0.70 - 1.20 mg/dL Sodium 141 135 - 145 mmol/L Potassium 3.4 (L) 3.5 - 5.0 mmol/L Chloride 97 (L) 98 - 107 mmol/L CO2 22 22 - 31 mmol/L Anion Gap 22 (H) 5 - 15 mmol/L Calcium 10.2 8.5 - 10.5 mg/dL Estimated GFR >60 >=60 Troponin T Result Value Ref Range Troponin-T <0.03 <=0.03 ng/mL Hemogram Result Value Ref Range WBC 13.3 (H) 4.0 - 9.5 x10(3)/mcL RBC 3.91 (L) 4.00 - 5.21 x10(6)/mcL Hemoglobin 12.0 11.7 - 15.5 gm/dL Hematocrit 36.3 35.7 - 45.8 % MCV 92.8 82.6 - 94.4 fL MCH 30.7 27.1 - 32.0 pg MCHC 33.1 31.7 - 35.0 gm/dL Platelets 271 145 - 357 x10(3)/mcL RDWSD 48.0 (H) 37.0 - 46.0 fL RDWCV 14.1 11.5 - 14.1 % MPV 12.2 7.6 - 12.9 fL nRBC % Auto 0.0 % nRBC Abs Auto 0.000 0.000 - 0.000 x10(3)/mcL Differential, Automated Result Value Ref Range Neutrophils % 73.4 % Neutr Abs (ANC) 9.79 (H) 1.70 - 6.10 x10(3)/mcL Lymphocytes % 19.4 % Lymphocytes Abs 2.6 0.9 - 3.2 x10(3)/mcL Monocytes % 3.2 % Monocyte Abs 0.4 0.3 - 0.9 x10(3)/mcL Eosinophils % 2.8 % Eosinophils Abs 0.4 0.0 - 0.4 x10(3)/mcL Basophils % 0.3 % Basophils Abs 0.0 0.0 - 0.1 x10(3)/mcL Immature Gran % 0.90 % Jena Gran Abs 0.12 (H) 0.00 - 0.04 x10(3)/mcL Blue Tube HOLD Result Value Ref Range Blue Hold Sample in lab. Gold Tube HOLD Result Value Ref Range Gold Hold Sample in lab. pro-Brain Natriuretic Peptide Result Value Ref Range ProBNP 1228 (H) <=125 pg/mL Beta HCG, quantitative Result Value Ref Range Beta hCG Quant 2638 mlU/ML Magnesium Result Value Ref Range Magnesium 0.70 0.69 - 1.07 mmol/L Phosphorus Result Value Ref Range Phosphorus 3.8 2.5 - 4.5 mg/dL EKG 12 Lead Result Value Ref Range Ventricular rate 50 BPM Atrial Rate 50 BPM P-R Interval 128 ms QRS Duration 88 ms Q-T Interval 448 ms QTC Calculated (Bezet) 408 ms Calculated P [place] 41 degrees Calculated R [place] 17 degrees Calculated T [place] 56 degrees INTERPRETATION Sinus bradycardia Possible Left atrial enlargement Borderline ECG No previous ECGs available Confirmed by MD TK, DEEP ([id number]) on 07/04/2016 3:33:11 PM Urinalysis with reflex Culture Result Value Ref Range Glucose UA Negative Negative mg/dL Protein UA 30 (A) Negative mg/dL Bilirubin UA Negative Negative mg/dL Urobilinogen UA Normal Normal mg/dL pH UA 8.0 5.0 - 8.0 Blood UA Large (A) Negative mg/dL Ketones UA Negative Negative mg/dL Nitrite UA Negative Negative Leukocytes UA Moderate (A) Negative mcL Appearance UA Clear Clear Spec [place] UA 1.005 1.002 - 1.030 Color UA Straw Yellow RBC UA 137 (H) 0 - 4 /HPF WBC UA 21 (H) 0 - 5 /HPF Bacteria UA Rare (A) None /HPF Squam Epith UA 2 <=4 /HPF Trans Epith UA <1 <=1 /HPF Renal Epith UA <1 (H) <=0 /HPF Culture Reflexed Yes Urine Hold Result Value Ref Range Urine Hold Sample in lab. Urine culture Result Value Ref Range Urine Culture (A) 1,000-9,000 cfu/ml Gram Positive organisms , probable contaminant Echocardiogram Transthoracic(Leb) Result Value Ref Range EF 74 Troponin T Result Value Ref Range Troponin-T <0.03 <=0.03 ng/mL Aspartate Aminotransferase Result Value Ref Range AST 21 0 - 30 unit/L TSH Result Value Ref Range TSH 2.40 0.27 - 4.20 mcIU/mL Protein/Creatinine Ratio, urine Result Value Ref Range U Creatinine 22 mg/dL U Protein Ran 10 0 - 12 mg/dL Prot/Cre Ratio 0.5 ratio Rapid Drug Screen, Urine Result Value Ref Range DAVID Marijuana Metabolites Scr None Detected None Detected DAVID Phencyclidine Scr None Detected None Detected DAVID Cocaine Metabolites Scr None Detected None Detected DAVID Methamphetamines Scr None Detected None Detected DAVID Opiates Scr None Detected None Detected DAVID Amphetamines Scr None Detected None Detected DAVID Benzodiazepines Scr Presumptive Pos (A) None Detected DAVID Tricyclics Scr None Detected None Detected DAVID Methadone Scr None Detected None Detected DAVID Barbiturates Scr None Detected None Detected DAVID Oxycodone Scr None Detected None Detected DAVID Propoxyphene Scr None Detected None Detected DAVID Buprenorphine Scr None Detected None Detected DAVID Adulterants Screen None Detected None Detected D-Dimer, Quantitative Result Value Ref Range D-Dimer, Quant 776 (H) 0 - 500 FEU ng/ml Troponin T Result Value Ref Range Troponin-T <0.03 <=0.03 ng/mL EKG 12 Lead Result Value Ref Range Ventricular rate 43 BPM Atrial Rate 43 BPM P-R Interval 104 ms QRS Duration 82 ms Q-T Interval 474 ms QTC Calculated (Bezet) 400 ms Calculated P [place] 43 degrees Calculated R [place] 40 degrees Calculated T [place] 52 degrees INTERPRETATION Marked sinus bradycardia with short IL Possible Anterior infarct , age undetermined Abnormal ECG When compared with ECG of 04-JUL-2016 13:24, No significant change was found Confirmed by MD Amparo, Dandy ([id number]) on 07/05/2016 8:41:12 AM Pending Studies and Lab Data: Chest pain and bradycardia. Cardiology was consulted and believes that this bradycardia is likely vagally mediated and does not represent cardiac pathology. In the CDU patient has had serial negativetroponins, EKGs that showed no changes and a normal echocardiogram. Vice President [employer] does not believe that Aniya's symptoms are consistent with pre-eclampsia or pathology. Aortic dissection was con sidered but felt to be unlikely. PE was considered given recent and dyspnea but d-dimer was essentially normal after adjustment for post status. Cardiology recommends amlodipine 5mg if patient continues to have elevated BP. She will follow up with her doctor on Friday and has already scheduled this appointment. She will also follow up with her engineer. She understands to return if she has any worsening of her symptoms, including but not limited to, shortness of breath, chest pain or any concerns. She will be discharged home on macrobid for concerns of UTI. Discharge Condition: stable Discharge to: home Discharge Medications: Your Medications New Medications Dose Details nitrofurantoin (macrocrystal-monohydrate) 100 mg Cap Commonly known as: MACROBID Take 1 capsule by mouth 2 times daily for 7 days. 100 mg Quantity: 14 capsule Refills: 0 UNREVIEWED medications - Discuss With Your Provider Dose Details acetaminophen 500 mg Tab Commonly known as: TYLENOL Take 1,000 mg by mouth every 6 hours as needed. 1000 mg Refills: 0 aspirin 81 mg Tbec Take 81 mg by mouth daily. 81 mg Refills: 0 calcium carbonate 200 mg calcium (500 mg) Chew Commonly known as: TUMS Take 1 tablet by mouth as needed. 1 tablet Refills: 0 diphenhydrAMINE 25 mg Cap Commonly known as: BENADRYL Take 25 mg by mouth every 6 hours as needed. 25 mg Refills: 0 doxepin 25 mg Cap Commonly known as: SINEquan Take 25 mg by mouth. 25 mg Refills: 0 VITAMIN NO.2 ORAL Take 1 tablet by mouth daily. 1 tablet Refills: 0 Updated Allergies/ADRs: Allergies Allergen Reactions ??? Morphine Unknown reaction ??? Penicillins Rash ??? Seroquel [Quetiapine] Made head feel loopy. General Instructions None I have asked Dr France to see this patient today. For questions regarding this document or issues relating to this admission, please contact the Clinical Decision Unit through the [facility] [employer] . Paz Varma APRN 07/05/16 0748 * Kirti Adams RN - 07/05/2016 11:30 AM EDT Seen by Cardiology team, patient remains in sinus bradycardia. She denies complaints. * Kirti Adams RN - 07/05/2016 10:15 AM EDT Patient has been pumping her left breast to relieve the pressure but has no plans to breast feed. After the warm packs, an cecil bandage is placed around her chest as she has used it with her 2 older children to aid in discomfort from engorgement. She is advised not to pump her breast as this will just increase the amount of milk produced. There is no redness noted on either breast. * Rosina Pastor RN - 07/05/2016 1:58 AM EDT LAMP DECORATOR physician Dr Avilez at bedside * Rosina Pastor RN - 07/05/2016 12:51 AM EDT Patient arrives to CDU 4. Care assumed, introduction made. Patient awake and alert. * Rosina Pastor RN - 07/05/2016 12:51 AM EDT Patient arrives to CDU 4. Care assumed. Patient is awake and alert. * Rosina Pastor RN - 07/05/2016 12:45 AM EDT Received report from Angie Mckeon RN. * Rosina Pastor RN - 07/05/2016 12:45 AM EDT Received report from Angie Mckeon RN. * Ana Trimble RN - 07/04/2016 9:00 PM EDT Pt ambulated to BR. HR increased to 130's. Gait Steady pt denies CP or SOB. * Lexie Mckeon RN - 07/04/2016 8:42 PM EDT Pt is very anxious and is worried that she is going to . Her HR increase on exertion to the 50'sbut at rest drops back down to 40's and 30's. aware and my concern. * Veronique Cedillo RN - 07/04/2016 6:30 PM EDT Pt remains anxious. Very restless and unable to calm down. HR remains between 39-47. MD notified. * Veronique Cedillo RN - 07/04/2016 5:55 PM EDT Pt very anxious stating I don't want to . Pt constantly watching the heart monitor. Provided patient with reassurance. * Vazquez Strickland MD - 07/04/2016 4:50 PM EDT ED Resident Note Aniya Luque is an 31 y.o. female who presents to the ED with: No chief complaint on file. I saw this patient 07/04/2016 at ~1300. History is from Pt. HPI Aniya Luque is a 31 y.o. female four days post- (39 wks, induced, vaginal ) who presents to the Emergency Department with slow heart rate, chest discomfort, and dyspnea since giving . Pt reports feeling pressure on her chest and shortness of breath, and she feels that her HR has been slow. She has also had GEORGE and nausea. called EMS today. No hemoptysis, cough, or hx of clots. Of note, pt had HTN during and was on labetalol, but was taken off of it in second trimester. Review of Systems: Review of Systems Constitutional: Negative for fever and unexpected weight change. HENT: Negative for drooling and nosebleeds. Eyes: Negative for visual disturbance. Respiratory: Positive for shortness of breath. Negative for cough. Cardiovascular: Positive for chest pain. Gastrointestinal: Positive for nausea. Negative for abdominal pain, blood in stool, constipation, diarrhea and vomiting. Genitourinary: Negative for difficulty urinating, dysuria and hematuria. Musculoskeletal: Negative for arthralgias. Skin: Negative for rash and wound. Neurological: Positive for headaches. Negative for syncope. Physical Exam: Patient Vitals for the past 24 hrs: BP Pulse Resp SpO2 07/04/16 1600 170/81 (!) 44 16 99 % 07/04/16 1554 178/82 (!) 44 13 98 % 07/04/16 1515 (!) 171/97 (!) 46 21 98 % 07/04/16 1510 - 55 - - 07/04/16 1500 165/79 (!) 46 14 98 % 07/04/16 1415 183/77 (!) 42 13 98 % 07/04/16 1400 184/77 (!) 43 11 99 % 07/04/16 1345 174/83 (!) 49 - 99 % GEN: Well-appearing, well-nourished, no acute distress. HEENT: No scleral icterus. Oropharynx clear, pink, and moist. PULM: No resp distress. Lungs ctab. No wheezes or rhonchi. CV: Normal rate. S1/S2. No murmurs. Distal pulses intact bilat. ABD: Soft, nondistended, nttp. Bowel sounds present. MSK: Full active ROM. NEURO: AAOx3. PERRL, EOMI. No gross CN deficits. Light touch intact face & body. Moves extremities equally. Regular gait. PSYCH: Normal mood and thought pattern. SKIN: No rashes. ED Course: - Patient seen under the supervision of Dr. Zamudio. - Medications, allergies and past medical history reviewed. - 9:25 PM: Walking the pt, I got her HR up to 80. Pt still reporting anxiety but no GEORGE. MEDS GIVEN -tylenol, compazine, NS maint, ketorolac, benadryl LABS/IMAGING -CBC shows leukocytosis (13.3) -BMP shows small AG -Mg nl -Phos nl -proBNP elevated at 1228 -BHCG 2638 -EKG shows sinus bradycardia, nl axis, nl intervals, no acute ischemic changes -Trop #1 nl -Trop #2 nl -Formal Echo is normal, per report -CXR shows Interval increase in heart size probably due to . No acute cardiopulmonary process. -UDS +benzos -UA is significantly contaminated by vaginal bleeding -Urine prot/cr ration nl -D dimer is mildly elevated at 776 but wnl for immediately pt CONSULTS -Cardiology: Pt evaluated in ED by Dr. Chandana Sheriff. He observed the pt's HR to show appropriatephysiologic response to 60s with ambulation. He feels her formal ECHO today was normal and that herbradycardia is most likely vagally mediated from nausea rather than cardiac etiology. Recommends amlodipine 5mg if needed for HTN. -video clerk: Pt eval'd in ED by team. They do not usually see bradycardia after delivery. They have ordered pre-eclampsia labs. They feel the pt's BHCG is wnl for downward trend after delivery. Assessment and Plan: Assessment: 31 y.o. female with asymptomatic bradycardia. The pt's presentation has unclear etiology at present. Pt has essentially asymptomatic sinus bradycardia with elevated pressure. I do not feel she needs pacing or pharmacologic intervention at this time. Cardiology evaluated her and feels her bradycardia is unlikely to represent acute cardiac pathology but is perhaps vagally mediated; normal sinus chance EKG and two negative Trops thus far. OB/Gynevaluated pt and feels that her s/s are inconsistent with pre- eclampsia or other peripartum pathology; pt shows no elevation of urine prot/Cr ratio to support eclamptic proteinuria. She has no known ingestants to cause the s/s; her UDS is + for benzos, but these would not cause isolated bradycardia. Aortic dissection is unlikely, as any dissection significant enough to interrupt conduction pathway would necessarily involve coronary vessels and manifest as infarct with elevated Trops. Because ptis recently and had dyspnea, PE was considered but felt to be less likely; a d-dimer was essentially normal after adjustment for gestational age. The pt's sustained stability and lack of s/s throughout ED stay, despite continued bradycardia, is reassuring. We will keep pt on monitor in CDU overnight on chest pain protocol for serial EKGs. Assuming all w/u is negative and pt remains asx, she can likely d/c home in the morning, likely with close cardiology f/u. Plan: - Admit CDU, chest pain protocol - D/C home in a.m. - Follow up with Cardiology - Return precautions Vazquez Strickland MD Resident 07/04/16 9635 Associated attestation - Jasmin Smith MD - 07/04/2016 11:49 PM EDT ED ATTENDING ATTESTATION NOTE The patient was seen in conjunction with Dr. Strickland, the resident physician. I have independentlyperformed the steiner portions of the history and physical exam. I have reviewed the nursing notes, vital signs, and all diagnostic studies personally including labs, imaging studies and EKGs. I have discussed the details of the case with the resident and agree with the assessment and plan as describedin the resident note above unless noted otherwise below. Brief Summary: Patient is a 31-year-old female who is 4 days presenting with chest pain and shortness of breath. On arrival, patient is actually noted to be bradycardic in the low 40s. Shedenies any episodes of syncope, but does have some dizziness when standing up. She reports a mild he adache and nausea. She denies any fevers or neck stiffness. Patient denies cough or hemoptysis. Initially, we were concerned for cardiomyopathy. An urgent echocardiogram was which showed an EF of 74%. EKG was obtained which showed sinus bradycardia, no ST elevations or depressions, and no evidence of acute ischemia. Initial troponin was negative. A cardiology consult was placed and they evaluated the patient. They did not find any worrisome causes of her bradycardia requiring admission. OB was consultative. They considered preeclampsia as a cause of her hypertension, however, her urine protein and urinalysis was reassuring, and they did not feel that this was a likely cause of her symptoms. Patient continued to have symptoms of chest pain and she felt quite anxious about her low heart rate. She did have appropriate responses of increasing her heart rate with exertion when walking. At one point, she actually became tachycardic with exertion into the 130s. Suspicion for PE was quite low based on the normal oxygen saturation and low heart rate. However, we did check a d-dimer which was 776. We felt that when adjusted for her state, this was actually very reassuring that she does not have a PE as a cause of her chest pain. Due to the patient's high level of concern regarding her symptoms and her ongoing bradycardia, we felt that overnight observation on telemetry was appropriate. She will be admitted to the CDU under the chest pain protocol with plan for repeat troponin and EKG in the morning. If her repeat EKG and troponin show no evidence of ischemia, and she is not having symptomatic bradycardia, I do feel that she is appropriate for outpatient management. Final Assessment: Chest pain, bradycardia * Veronique Cedillo RN - 07/04/2016 4:28 PM EDT Echocardiogram done * Veronique Cedillo RN - 07/04/2016 4:10 PM EDT Pt stating I don't want to . Pt very anxious, constantly watching heart monitor. Provided pt with reassurance. documented in this encounter Miscellaneous Notes * Consult Note - Blake Ruiz MD - 07/04/2016 8:08 PM EDT Gynecology Service - Consultation Note Date of Consultation: 07/05/2016 Consult Service: Gynecology Consult Service Responsible Attending: Hernando Leiva MD Place of Service: Emergency Department Reason for Consult: We are seeing Aniya Luque at the request of the Emergency Medicine servicefor the evaluation of bradycardia in the period. I have reviewed the available records, interviewed, and examined the patient. Active Problem List: Active Hospital Problems Diagnosis ??? Chest pain Resolved Hospital Problems Diagnosis Date Resolved No resolved problems to display. Active Non-Hospital Problems Diagnosis ??? Skin disease ??? Anxiety ??? Depression ??? Asthma ??? Hypertension ??? Tachycardia HPI Aniya is a 31 yo on day 4 from a spontaneous vaginal delivery at [facility]. She presented to the [facility] ED for evaluation of chest pain, bradycardia, and feelinglike I'm going to . Per patient report her was complicated by chronic hypertension onlabetalol until the 2nd trimester, tobacco abuse, benzodiazapine use, depression and anxiety. She reports she was discharged on PPD2 with a low heart rate. After checking her heart rate at home andfeeling poorly she decided to seek care. She denies suicidal ideation currently but admits to it inthe past. She was positive for poor Sleep, loss of Interest, feelings of Guilt, lack of Energy, andloss of Appetite (SIG E CAPS). She sees a mental health counselor and has an appointment to see them soon. She denies lack of interest in her child or intentions to harm it. She reports that her child is currently being cared for by the [facility]. She endorsed intermittent heart palpitations and lightheadedness. She denies fever, chills, shortness of breath, headache, changes in her vision, nausea, vomiting, urinary symptoms, heavy vaginal bleeding, leg pain or swelling. Review of Systems All system reviewed negative except as per HPI Past Medical and Surgical History: Past Medical History Diagnosis Date ??? Anxiety 08/03/2014 ??? Asthma 08/03/2014 ??? Flaherty's palsy ??? Chest pain 01/17/2016 ETT 2013- negative ST III Echo 2013 ??Normal LV size and function, trivial TR, mild PI ??? Chills ??? Cough ??? Depression ??? Fever ??? Headache ??? Hypertension 08/03/2014 ??? Shortness of breath ??? Tachycardia 08/03/2014 ??? Weight gain ??? Weight loss No past surgical history on file. Past Obstetric History: , per patient report, she is a poor historian, records requested Medications: Current Facility-Administered Medications: ??? sodium chloride 0.9% infusion, 150 mL/hr, Intravenous, Continuous, Vazquez Strickland MD, Last Rate: 150 mL/hr at 07/05/16 0156, 150 mL/hr at 07/05/16 0156 ??? acetaminophen (TYLENOL) tablet 650 mg, 650 mg, Oral, Q4H PRN, Jasmin Smith MD, 650 mg at 07/05/16 0904 Current Outpatient Prescriptions: ??? doxepin (SINEQUAN) 25 mg Capsule, Take [...] 6 hours as needed., Disp: ,Rfl: ??? VITS CMB W-O CA NO.2 ( VITAMIN NO.2 ORAL), Take 1 tablet by mouth daily., Disp: , Rfl: Prior To Admission Medications: (Not in a hospital admission) Allergies: Allergies Allergen Reactions ??? Morphine Unknown reaction ??? Penicillins Rash ??? Seroquel [Quetiapine] Made head feel loopy. Family History: Family History Problem Relation Age of Onset ??? Migraines Mother Social History and Habits: Social History Social History ??? Marital status: Single Spouse name: N/A ??? Number of children: N/A ??? Years of education: N/A Occupational History ??? Not on file. Social History Main Topics ??? Smoking status: Current Every Day Smoker Types: Cigarettes ??? Smokeless tobacco: Never Used Comment: Smokess 0.5 - 1 packs of cigarettes daily x 13 - 14 years. ??? Alcohol use Yes Comment: occasionally ??? Drug use: No ??? Sexual activity: Not on file Comment: question deferred Other Topics Concern ??? Not on file Social History Narrative Physical Exam: Last set of vitals and range over past 24 hours: Last value Range last 24 hrs Temperature Temp: 36.7 ??C (98.1 ??F) Temp: [36.7 ??C (98 ??F)-36.7 ??C (98.1 ??F)] Heart Rate Heart Rate: (!) 44 Heart Rate: [41-60] Blood Pressure BP: 137/69 BP: (137-184)/(69-97) Respiratory Rate Resp: 17 Resp: [11-22] SpO2 SpO2: 98 % SpO2: [96 %-100 %] Physical Exam Gen: NAD, drowsy Cor: bradycardia, no murmur Pulm: CTAB Ab: BS+, soft non tender, no rebound or guarding, fundus below the umbilicus and firm Ext: WWP, pedal pulses intact Psych: disinterested in answering simple questions, would often ignore questions asked by medical staff it ED, depressed mood, flat affect Laboratory (Last 24 Hours): Recent Results (from the past 24 hour(s)) Basic Metabolic Panel (non-fasting) Result Value Ref Range Glucose Lvl 120 65 - 199 mg/dL BUN 10 8 - 18 mg/dL Creatinine 0.97 0.70 - 1.20 mg/dL Sodium 141 135 - 145 mmol/L Potassium 3.4 (L) 3.5 - 5.0 mmol/L Chloride 97 (L) 98 - 107 mmol/L CO2 22 22 - 31 mmol/L Anion Gap 22 (H) 5 - 15 mmol/L Calcium 10.2 8.5 - 10.5 mg/dL Estimated GFR >60 >=60 Troponin T Result Value Ref Range Troponin-T <0.03 <=0.03 ng/mL Hemogram Result Value Ref Range WBC 13.3 (H) 4.0 - 9.5 x10(3)/mcL RBC 3.91 (L) 4.00 - 5.21 x10(6)/mcL Hemoglobin 12.0 11.7 - 15.5 gm/dL Hematocrit 36.3 35.7 - 45.8 % MCV 92.8 82.6 - 94.4 fL MCH 30.7 27.1 - 32.0 pg MCHC 33.1 31.7 - 35.0 gm/dL Platelets 271 145 - 357 x10(3)/mcL RDWSD 48.0 (H) 37.0 - 46.0 fL RDWCV 14.1 11.5 - 14.1 % MPV 12.2 7.6 - 12.9 fL nRBC % Auto 0.0 % nRBC Abs Auto 0.000 0.000 - 0.000 x10(3)/mcL Differential, Automated Result Value Ref Range Neutrophils % 73.4 % Neutr Abs (ANC) 9.79 (H) 1.70 - 6.10 x10(3)/mcL Lymphocytes % 19.4 % Lymphocytes Abs 2.6 0.9 - 3.2 x10(3)/mcL Monocytes % 3.2 % Monocyte Abs 0.4 0.3 - 0.9 x10(3)/mcL Eosinophils % 2.8 % Eosinophils Abs 0.4 0.0 - 0.4 x10(3)/mcL Basophils % 0.3 % Basophils Abs 0.0 0.0 - 0.1 x10(3)/mcL Immature Gran % 0.90 % Jena Gran Abs 0.12 (H) 0.00 - 0.04 x10(3)/mcL Blue Tube HOLD Result Value Ref Range Blue Hold Sample in lab. Gold Tube HOLD Result Value Ref Range Gold Hold Sample in lab. pro-Brain Natriuretic Peptide Result Value Ref Range ProBNP 1228 (H) <=125 pg/mL Beta HCG, quantitative Result Value Ref Range Beta hCG Quant 2638 mlU/ML Magnesium Result Value Ref Range Magnesium 0.70 0.69 - 1.07 mmol/L Phosphorus Result Value Ref Range Phosphorus 3.8 2.5 - 4.5 mg/dL Urinalysis with reflex Culture Result Value Ref Range Glucose UA Negative Negative mg/dL Protein UA 30 (A) Negative mg/dL Bilirubin UA Negative Negative mg/dL Urobilinogen UA Normal Normal mg/dL pH UA 8.0 5.0 - 8.0 Blood UA Large (A) Negative mg/dL Ketones UA Negative Negative mg/dL Nitrite UA Negative Negative Leukocytes UA Moderate (A) Negative mcL Appearance UA Clear Clear Spec [place] UA 1.005 1.002 - 1.030 Color UA Straw Yellow RBC UA 137 (H) 0 - 4 /HPF WBC UA 21 (H) 0 - 5 /HPF Bacteria UA Rare (A) None /HPF Squam Epith UA 2 <=4 /HPF Trans Epith UA <1 <=1 /HPF Renal Epith UA <1 (H) <=0 /HPF Culture Reflexed Yes Urine Hold Result Value Ref Range Urine Hold Sample in lab. Troponin T Result Value Ref Range Troponin-T <0.03 <=0.03 ng/mL Aspartate Aminotransferase Result Value Ref Range AST 21 0 - 30 unit/L TSH Result Value Ref Range TSH 2.40 0.27 - 4.20 mcIU/mL Protein/Creatinine Ratio, urine Result Value Ref Range U Creatinine 22 mg/dL U Protein Ran 10 0 - 12 mg/dL Prot/Cre Ratio 0.5 ratio Rapid Drug Screen, Urine Result Value Ref Range DAVID Marijuana Metabolites Scr None Detected None Detected DAVID Phencyclidine Scr None Detected None Detected DAVID Cocaine Metabolites Scr None Detected None Detected DAVID Methamphetamines Scr None Detected None Detected DAVID Opiates Scr None Detected None Detected DAVID Amphetamines Scr None Detected None Detected DAVID Benzodiazepines Scr Presumptive Pos (A) None Detected DAVID Tricyclics Scr None Detected None Detected DAVID Methadone Scr None Detected None Detected DAVID Barbiturates Scr None Detected None Detected DAVID Oxycodone Scr None Detected None Detected DAVID Propoxyphene Scr None Detected None Detected DAVID Buprenorphine Scr None Detected None Detected DAVID Adulterants Screen None Detected None Detected D-Dimer, Quantitative Result Value Ref Range D-Dimer, Quant 776 (H) 0 - 500 FEU ng/ml Troponin T Result Value Ref Range Troponin-T <0.03 <=0.03 ng/mL Assessment/Recommendations: Aniya is a 31 yo on day 4 from a spontaneous vaginal delivery at [facility]. She presented to the [facility] ED for evaluation of chest pain, bradycardia, and feelinglike I'm going to . This patient was simultaneously bradycardic and hypertensive to the 170-180s while in the ED. Due to the close proximity to preeclampsia needs to be ruled out, however bradycardia is not a known component of any hypertensive disease of . Per ED providers report cardiology has evaluated this patient and determined that there is not a cardiogenic source ofher bradycardia. The most likely source based on the history and exam seems to be substance use/abuse. The patient is prescribed valium and admitted to using it during . Additionally, her change in mood and affect may be blues vs depression. She is at higher risk of these conditions due to her psychiatric history. ?? Chronic Hypertension with Superimposed Preeclampsia : BP check in 2 days with care provider, treat for BP >150/100 ?? BP 170-180/70-80 prior to evaluation, no severe range pressures after meeting preeclampsia criteria ?? Plt 271 x 10^3/mcL ?? AST 21 ?? Urine Protein/Cr 0.5 ?? Substance Abuse: ?? DAVID positive for benzodiazepines, may contribute to bradycardia ?? blues vs depression ?? Hx of depression ?? Follow up with current mental health counselor, patient has follow up visit scheduled ?? care: follow up with care provider for routine care Consult service will continue to follow patient. Recommendations are above, please page if further consultation required. Blake Ruiz MD PGY1 07/05/2016 Associated attestation - Hernando Leiva MD - 07/09/2016 12:56 PM EDT I have discussed this patient at length with Dr Ruiz, have reviewed her laboratory studies and I agree with his history and physical exam above. I contributed to the formulation of the assessmentand plan. No clear etiology for her persistent bradycardia. I am not convinced that she has preeclampsia as urine was a voided specimen and likely contaminated in this woman on PPD4. She is certainly at risk for PP depression and anxiety and would recommend f/u for these. HERNANDO LEIVA MD * Consult Note - Praneeth Sheriff - 07/04/2016 7:23 PM EDT Inpatient Cardiology Consult Note Date of Consultation: 07/04/2016 Admit Date: 07/04/2016 Place of Service: Emergency Department Responsible Attending: DANDY CHRISTENSEN Reason for Consult: We are seeing Aniya Luque at the request of Dr. Goncalves for the evaluation of sinus braducardia. Active Problem List: 1. Sinus bradycardia 2. Atypical chest pain 3. Headache 4. Nausea History of Present Illness: Aniya Luque is a 31 y.o. female who delivered healthy baby 4 days ago, is complaining on beingnauseous throughout her , today she developed headache and neck discomfort, SOB, her nausea worsening, and mild sharp precordial discomfort. In ED she was found to be in sinus chance in 30s at rest which is increasing to NSR at 60s with normal activities ( e.g. going to bathroom). Denies exceptional chest pain, syncope, PND, orthopnea or pedal edema . She is pattiernt of Dr. Collins, with history of tachycardia, palpitations, HTN, and atypical chest pains with reportedly unremarkable work up in 2013. She was initially treated with labetalol which was changed to amlodipine 2.5 mg. She agin developed palpitation during and however Loop recorder showed NSR and sinus tachycardia- no arrhythmia in 01/2016. She was again hypertensive during her first and last trimesters. She did not take any medications for HTN after delivery. She continues to smoke but denies use of illicit drugs. Review of Systems: Review of Systems As in HPI PMH: Past Medical History Diagnosis Date ??? Anxiety 08/03/2014 ??? Asthma 08/03/2014 ??? Flaherty's palsy ??? Chest pain 01/17/2016 ETT 2013- negative ST III Echo 2013 ??Normal LV size and function, trivial TR, mild PI ??? Chills ??? Cough ??? Depression ??? Fever ??? Headache ??? Hypertension 08/03/2014 ??? Shortness of breath ??? Tachycardia 08/03/2014 ??? Weight gain ??? Weight loss Pertinent Medications: Current Facility-Administered Medications Ordered in [facility] Medication Dose Route Frequency Provider Last Rate Last Dose ??? sodium chloride 0.9% infusion 150 mL/hr Intravenous Continuous Vazquez Strickland MD 150 mL/hr at 07/04/16 1736 150 mL/hr at 07/04/16 1736 ??? LORazepam (ATIVAN) injection 1 mg 1 mg Intravenous Once Vazquez Strickland MD Current Outpatient Prescriptions Ordered in [facility] Medication Sig Dispense Refill ??? doxepin (SINEQUAN) [...] ORAL) Take 1 tablet by mouth daily. Family History: Family History Problem Relation Age of Onset ??? Migraines Mother Social History: Social History Social History ??? Marital status: Single Spouse name: N/A ??? Number of children: N/A ??? Years of education: N/A Occupational History ??? Not on file. Social History Main Topics ??? Smoking status: Current Every Day Smoker Types: Cigarettes ??? Smokeless tobacco: Never Used Comment: Smokess 0.5 - 1 packs of cigarettes daily x 13 - 14 years. ??? Alcohol use Yes Comment: occasionally ??? Drug use: No ??? Sexual activity: Not on file Comment: question deferred Other Topics Concern ??? Not on file Social History Narrative Physical Exam: Vital signs: Last value Range last 8 hrs Temperature Temp: -- Heart Rate Heart Rate: (!) 46 Heart Rate: [41-55] Blood Pressure BP: 143/73 BP: (142-184)/(71-97) Respiratory Rate Resp: 19 Resp: [11-22] SpO2 SpO2: 98 % SpO2: [96 %-100 %] Physical Exam Somnolent, NAD No JVD. Lungs are clear CV: S1, S2 +, no murmur. Chest: precordial chest wall tenderness. No pedal edema Labs: Recent Results (from the past 24 hour(s)) Basic Metabolic Panel (non-fasting) Result Value Ref Range Glucose Lvl 120 65 - 199 mg/dL BUN 10 8 - 18 mg/dL Creatinine 0.97 0.70 - 1.20 mg/dL Sodium 141 135 - 145 mmol/L Potassium 3.4 (L) 3.5 - 5.0 mmol/L Chloride 97 (L) 98 - 107 mmol/L CO2 22 22 - 31 mmol/L Anion Gap 22 (H) 5 - 15 mmol/L Calcium 10.2 8.5 - 10.5 mg/dL Estimated GFR >60 >=60 Troponin T Result Value Ref Range Troponin-T <0.03 <=0.03 ng/mL Hemogram Result Value Ref Range WBC 13.3 (H) 4.0 - 9.5 x10(3)/mcL RBC 3.91 (L) 4.00 - 5.21 x10(6)/mcL Hemoglobin 12.0 11.7 - 15.5 gm/dL Hematocrit 36.3 35.7 - 45.8 % MCV 92.8 82.6 - 94.4 fL MCH 30.7 27.1 - 32.0 pg MCHC 33.1 31.7 - 35.0 gm/dL Platelets 271 145 - 357 x10(3)/mcL RDWSD 48.0 (H) 37.0 - 46.0 fL RDWCV 14.1 11.5 - 14.1 % MPV 12.2 7.6 - 12.9 fL nRBC % Auto 0.0 % nRBC Abs Auto 0.000 0.000 - 0.000 x10(3)/mcL Differential, Automated Result Value Ref Range Neutrophils % 73.4 % Neutr Abs (ANC) 9.79 (H) 1.70 - 6.10 x10(3)/mcL Lymphocytes % 19.4 % Lymphocytes Abs 2.6 0.9 - 3.2 x10(3)/mcL Monocytes % 3.2 % Monocyte Abs 0.4 0.3 - 0.9 x10(3)/mcL Eosinophils % 2.8 % Eosinophils Abs 0.4 0.0 - 0.4 x10(3)/mcL Basophils % 0.3 % Basophils Abs 0.0 0.0 - 0.1 x10(3)/mcL Immature Gran % 0.90 % Jena Gran Abs 0.12 (H) 0.00 - 0.04 x10(3)/mcL Blue Tube HOLD Result Value Ref Range Blue Hold Sample in lab. Gold Tube HOLD Result Value Ref Range Gold Hold Sample in lab. pro-Brain Natriuretic Peptide Result Value Ref Range ProBNP 1228 (H) <=125 pg/mL Beta HCG, quantitative Result Value Ref Range Beta hCG Quant 2638 mlU/ML Urinalysis with reflex Culture Result Value Ref Range Glucose UA Negative Negative mg/dL Protein UA 30 (A) Negative mg/dL Bilirubin UA Negative Negative mg/dL Urobilinogen UA Normal Normal mg/dL pH UA 8.0 5.0 - 8.0 Blood UA Large (A) Negative mg/dL Ketones UA Negative Negative mg/dL Nitrite UA Negative Negative Leukocytes UA Moderate (A) Negative mcL Appearance UA Clear Clear Spec [place] UA 1.005 1.002 - 1.030 Color UA Straw Yellow RBC UA 137 (H) 0 - 4 /HPF WBC UA 21 (H) 0 - 5 /HPF Bacteria UA Rare (A) None /HPF Squam Epith UA 2 <=4 /HPF Trans Epith UA <1 <=1 /HPF Renal Epith UA <1 (H) <=0 /HPF Culture Reflexed Yes Urine Hold Result Value Ref Range Urine Hold Sample in lab. Pertinent Radiographic/Diagnostic Results: TTE today 1. Global left ventricular systolic function appears hyperdynamic. The quantitative left ventricular ejection fraction by biplane Redman's method is 74%.GLS -22.5% There are no left ventricular segmental wall motion abnormalities. 2. Right ventricular chamber size, wall thickness, and systolic function are within normal limits. 3. The cardiac valves appear structurally and functionally normal. 4. The pericardium appears normal and there is no evidence of a pericardial effusion. EKG :sinus chance HR 50. RSR pattern with TWI in V1-2. QTc 408. Assessment: Aniya Luque is a 31 y.o. female with history of HTN, palpitation and chest pains in past with unremarkable work up, had delivered a healthy baby four days ago. Today her chronic nausea got worse, she developed headache, neck pain, SOB and chest pain. She states that her breasts are very tendersince delivery. In ED she was found to be in sinus chance in 30s at rest which is increasing to NSR at 60s with normal activities ( e.g. going to bathroom). EKG showed sinus chance HR 50. RSR pattern with TWI in V1-2. This EKG is not different from EKG which she had in OSH 08/10/2014 ( scanned in [facility]). 1. Sinus chance. She goes from sinus chance at rest to SNR with minimal exertion, hence she has preserved chronotropy. When chance ,she is not hypotensive, in contrary she is hypertensive Avaliable electrolytes are unremarkable. Most likely her sinus bradycardia is from nausea/ vagal. 2. HTN. Mildly elevated BP , she has history of bradycardia and was on Norvasc. 3. Atypical chest pain. Exqscuisite chest wall tenderness. CE are not elevated and no new ischemic ischemic changes on EKG. The chest pain is musculoskeletal. 4. SOB. Unremarkable CXR and unremarkable echo ( see above). Clinically no evidence of HF. Recommendation: Restart her Norvasc at 5 mg daily. Symptom management for headache and nausea. Follow up as outpatient with engineer Dr. Harper Recommendations are above, please page if further consultation required. Praneeth Sheriff MD [employer] Provider Pager # [phone] Associated attestation - Dandy Christensen MD - 07/05/2016 12:20 PM EDT Images from the original note were not included. Cardiology Staff: Ms. Luque was seen today with Dr. Sheriff and was personally interviewed and examined. Case discussed with her treating team. She is just a few days post- and presented with chest pain, bradycardia, and numbness in face, hands and legs. Work-up notable for negative cardiac enzymes, abnormal ECG without changes, normal echo, elevated pro-BNP, and elevated d-dimer. Telemetry and ECG shows persistent bradycardia with a very short IL interval and occasional lack of p-waves. Exam unremarkable but for her heightened anxiety. Assess: 1. Abnormal ECG (poor r-wave progression) - chronic for her and likely just a normal varient 2. Atypical CP - she has had this in the past. While some component may be secondary to engorged breasts, there appears to be a musculoskeletal component. 3. Elevated d-dimer - not surprising post 4. Elevated pro-BNP - documented in the literature in post- patients, although her level is abit higher than expected 5. Bradycardia - The IL interval is so short that I suspect these represent retrograde p-waves and that she is in a junctional rhythm, likely secondary to increased vagal tone. Recommend conservativeapproach as this will very likely resolve spontaneously during the next few days. 6. Paresthesias - likely secondary to anxiety and hyperventilation Suggest: 1. Reasonable to discharge 2. Avoid any AV-bryson active drugs 3. Follow-up appointment in cardiology in a few weeks (she can probably see Dr. Issac Collins locallywith whom she is familiar) 4. Return to hospital if any severe lightheadedness, syncope, etc. 5. Reassurance! Dandy Christensen MD, FA, [facility] * ED Triage - Lexie Mckeon RN - 07/04/2016 4:52 PM EDT Pt came to the ED for chest tightness and GEORGE. Pt is 3 days and after baby was born pt HRwas in the 40's [employer] HEL[employer] d/thelma her on Friday and pt states she is tired all the time and dizzy. Pt has had some near syncopal episodes. Pt has an abnormal EKG aware. ABC's intact resp even and unlabored skin warm dry and intact. documented in this encounter Plan of Treatment Upcoming Encounters Date Type Department Care Team (Late st Contact Info) Description 09/21/2024 8:15 AM EST Routine Obstetrics [place] [address] Emili Cabrera MD [facility] [place] [address] 09/26/2024 6:00 PM EST Appointment [facility] Birthing [facility] [place] [phone] 10/16/2024 [place] [id number] Dudley Aguilar MD [facility] DR OBSTETRICS [place] [address] 11/08/2024 10:00 AM EST Hospital Encounter Non-Invasive Cardiology Lab [facility] [place] [id number] Arrived documented as of this encounter Procedures Procedure Name Priority Date/Time Associated Diagnosis Comments EKG 12-LEAD Routine 07/05/2016 6:44 AM EDT TROPONIN STAT 07/05/2016 1:58 AM EDT D-DIMER, QUANTITATIVE STAT 07/04/2016 10:14 PM EDT PROTEIN/CREATININE RATIO, URINE STAT 07/04/2016 8:38 PM EDT RAPID DRUG SCREEN W/O CONFIRMATION, URINE STAT 07/04/2016 8:38 PM EDT TROPONIN STAT 07/04/2016 8:00 PM EDT ASPARTATE AMINOTRANSFERASE STAT 07/04/2016 8:00 PM EDT TSH STAT 07/04/2016 8:00 PM EDT ECHO COMPLETE STAT 07/04/2016 4:43 PM EDT Chest pain, unspecified type URINE HOLD STAT 07/04/2016 3:53 PM EDT URINALYSIS WITH REFLEX CULTURE STAT 07/04/2016 3:53 PM EDT URINE CULTURE STAT 07/04/2016 3:53 PM EDT XR CHEST PA AND LATERAL STAT 07/04/20 2:53 PM EDT EKG 12-LEAD STAT 07/04/2016 1:24 PM EDT HEMOGRAM STAT 07/04/2016 1:24 PM EDT DIFFERENTIAL, AUTOMATED STAT 07/04/20 1:24 PM EDT GOLD TUBE HOLD STAT 07/04/2016 1:24 PM EDT BLUE TUBE HOLD STAT 07/04/2016 1:24 PM EDT CBC (WITH DIFF) STAT 07/04/2016 1:24 PM EDT BETA HCG, QUANTITATIVE STAT 6 1:24 PM EDT TROPONIN STAT 07/04/2016 1:24 PM EDT PHOSPHORUS STAT 07/04/2016 1:24 PM EDT PRO-BRAIN NATRIURETIC PEPTIDE STAT 07/04/2016 1:24 PM EDT MAGNESIUM STAT 07/04/2016 1:24 PM EDT BASIC METABOLIC PANEL STAT 07/04/2016 1:24 PM EDT documented in this encounter Results * EKG 12 Lead (07/05/2016 6:44 AM EDT) Ventricular rate 43 BPM MUSE SYSTEM Atrial Rate 43 BPM MUSE SYSTEM P-R Interval 104 ms MUSE SYSTEM QRS Duration 82 ms MUSE SYSTEM Q-T Interval 474 ms MUSE SYSTEM QTC Calculated (Bezet) 400 ms MUSE SYSTEM Calculated P [place] 43 degrees MUSE SYSTEM Calculated R [place] 40 degrees MUSE SYSTEM Calculated T [place] 52 degrees MUSE SYSTEM INTERPRETATION Marked sinus bradycardia with short [place] Possible Anterior infarct , age undetermined Abnormal ECG When compared with ECG of 04-JUL-2016 13:24, No significant change was found Confirmed by MD Amparo, Dandy ([id number]) on 07/05/2016 8:41:12 AM MUSE SYSTEM 07/05/2016 6:44 AM EDT 07/05/2016 8:41 AM EDT Jasmin Smith MD ECG ORDERABLES Performing Organization Address [facility] Co de Phone Number MUSE SYSTEM * Troponin T (07/05/2016 1:58 AM EDT) [facility] Troponin-T <0.03 <=0.03 ng/mL [facility] Comment: 0.03 ng/mL: Represents the 99th percentile upper reference limit for normals. >0.03 ng/mL: Elevated cardiac troponin T level indicative of myocardial damage. Diagnosis of acute, evolving or recent IN requires a typical rise and gradual fall of cTnT with at least ONE of the following: a) Ischemic symptoms b) Development of pathologic Q waves on the ECG c) ECG changes indicative of eschemia (S-T segment elevation/depression) d) Coronary artery intervention Serial bloods should be obtained for testing on admission, at 6 to 9 hrs and again at 12 to 24 hrs if earlier samples are negative and the clinical index of suspicion is high. Reference: [Myocardial infarction redefined? a consensus document of the Joint Society of Cardiology/[place] [employer] Committee for the redefinition of myocardial infarction. ??Journal of the [place] [employer] 2000; 36: 959-969] Blood specimen (specimen) 07/05/2016 1:58 AM EDT 07/05/2016 2:01 AM EDT Narrative Resulting Agency Comment Spec In Lab Danielle Ricci MD CHEMISTRY ORDERABLES Performing Organization Address City/[facility] Co de Phone Number [facility] [place] [address] * (ABNORMAL) D-Dimer, Quantitative (07/04/2016 10:14 PM EDT) Pathologist [facility] D-Dimer 776(H) 0 - 500 FEU ng/ml [facility] Comment: The D-Dimer assay is used to aid in the diagnosis of deep vein thrombosis and pulmonary embolism. A normal D-Dimer result (less than 500 FEU ng/ml) has a negative predictive value of approximately 95% for the exclusion of acute PE and DVT when there is low to moderate pretest probability. Blood specimen (specimen) 07/04/2016 10:14 PM EDT 07/04/2016 10:45 PM EDT Narrative Resulting Agency Comment Spec In Lab Jasmin Smith MD HEMATOLOGY ORDERABLE S [facility] [place] [place] [address] * (ABNORMAL) Rapid Drug Screen, Urine (07/04/2016 8:38 PM EDT) DAVID Marijuana Metabolites Screen None Detected None Detected [facility] Comment: The marijuana metabolites screen detects the THC Metabolite (92-vij-3-carboxy-? 9 -THC) at concentrations >50 ng/mL. Qualitative Drug screens are reported as ? None Detected? or ? Presumptive Positive? as the results are not routinely confirmed by highly-specific methods. As with any screen occasional false positive results from cross-reacting substances can occur. Not for Medico-Legal Purposes. Phencyclidine Screen, Urine None Detected None Detected [facility] Comment: The phencyclidine screen detects phencyclidine at concentrations >25 ng/mL. Qualitative Drug screens are reported as ? None Detected? or ? Presumptive Positive? as the results are not routinely confirmed by highly-specific methods. As with any screen occasional false positive results from cross-reacting substances can occur. Not for Medico-Legal Purposes. DAVID Cocaine Metabolites Screen None Detected None Detected [facility] Comment: The cocaine metabolites screen detects benzoylecgonine (Cocaine Metabolite) at concentrations >150 ng/mL. Qualitative Drug screens are reported as ? None Detected? or ? Presumptive Positive? as the results are not routinely confirmed by highly-specific methods. As with any screen occasional false positive results from cross-reacting substances can occur. Not for Medico-Legal Purposes. Methamphetamines Screen, Urine None Detected None Detected [facility] Comment: The methamphetamine screen detects d-methamphetamine at concentrations >500 ng/mL. Qualitative Drug screens are reported as ? None Detected? or ? Presumptive Positive? as the results are not routinely confirmed by highly-specific methods. As with any screen occasional false positive results from cross-reacting substances can occur. Not for Medico-Legal Purposes. DAVID Opiates Screen None Detected None Detected [facility] Comment: The opiates screen detects opiates at a concentration >100 ng/mL and oxymorphone >250 ng/mL. Qualitative Drug screens are reported as ? None Detected? or ? Presumptive Positive? as the results are not routinely confirmed by highly-specific methods. As with any screen occasional false positive results from cross-reacting substances can occur. Not for Medico-Legal Purposes. DAVID Amphetamines Screen None Detected None Detected [facility] Comment: The amphetamine screen detects d-amphetamine at concentrations >500 ng/mL. Qualitative Drug screens are reported as ? None Detected? or ? Presumptive Positive? as the results are not routinely confirmed by highly-specific methods. As with any screen occasional false positive results from cross-reacting substances can occur. Not for Medico-Legal Purposes. DAVID Benzodiazepines Screen Presumptive Pos(A) None Detected [facility] Comment: The benzodiazepines screen detects benzodiazepines at concentrations >150 ng/mL. Not all benzodiazepines cross-react equally with antibody used in this screen. Due to the low dosage of clonazepam, false negatives may be obtained due to low concentration of clonazepam metabolites. Qualitative Drug screens are reported as ? None Detected? or ? Presumptive Positive? as the results are not routinely confirmed by highly-specific methods. As with any screen occasional false positive results from cross-reacting substances can occur. Not for Medico-Legal Purposes. DAVID Tricyclics Screen None Detected None Detected [facility] Comment: The tricyclics screen detects tricyclic antidepressants at concentrations >300 ng/mL. Not all tricyclics cross-react equally with the antibody used in this screen. Qualitative Drug screens are reported as ? None Detected? or ? Presumptive Positive? as the results are not routinely confirmed by highly-specific methods. As with any screen occasional false positive results from cross-reacting substances can occur. Not for Medico-Legal Purposes. DAVID Methadone Screen None Detected None Detected [facility] Comment: The methadone screen detects methadone at concentrations >200 ng/mL. Qualitative Drug screens are reported as ? None Detected? or ? Presumptive Positive? as the results are not routinely confirmed by highly-specific methods. As with any screen occasional false positive results from cross-reacting substances can occur. Not for Medico-Legal Purposes. DAVID Barbiturates Screen None Detected None Detected [facility] Comment: The barbiturates screen detects barbiturate at concentrations >200 ng/mL. Note: Not all barbiturates cross-react equally with antibody used in this screen. Qualitative Drug screens are reported as ? None Detected? or ? Presumptive Positive? as the results are not routinely confirmed by highly-specific methods. As with any screen occasional false positive results from cross-reacting substances can occur. Not for Medico-Legal Purposes. DAVID Oxycodone Srceen None Detected None Detected [facility] Comment: The oxycodone screen detects oxycodone at concentrations >100 ng/mL and oxymorphone >250 ng/ml. Qualitative Drug screens are reported as ? None Detected? or ? Presumptive Positive? as the results are not routinely confirmed by highly-specific methods. As with any screen occasional false positive results from cross-reacting substances can occur. Not for Medico-Legal Purposes. Propoxyphene Screen, Urine None Detected None Detected [facility] Comment: The propoxyphene screen detects propoxyphene at concentrations >300 ng/mL. Qualitative Drug screens are reported as ? None Detected? or ? Presumptive Positive? as the results are not routinely confirmed by highly-specific methods. As with any screen occasional false positive results from cross-reacting substances can occur. Not for Medico-Legal Purposes. DAVID Buprenorphine Screen None Detected None Detected [facility] Comment: The buprenorphine screen detects buprenorphine at concentrations >10 ng/mL. Qualitative Drug screens are reported as ? None Detected? or ? Presumptive Positive? as the results are not routinely confirmed by highly-specific methods. As with any screen occasional false positive results from cross-reacting substances can occur. Not for Medico-Legal Purposes. DAVID Adulterants Screen None Detected None Detected [facility] Comment: No adulteration or dilution of this urine sample was detected. All urine samples submitted for urine drugs of abuse analysis are tested for Creatinine and pH and for the presence of oxidants, nitrites, chromate and aldehydes (glutaraldehyde). Urine specimen (specimen) 07/04/2016 8:38 PM EDT 07/04/2016 8:46 PM EDT Narrative Resulting Agency Comment Spec In Lab Jasmin Smith MD URINE ORDERABLES Performing Organization Address City/[facility] Co de Phone Number [facility] [place] [address] * Protein/Creatinine Ratio, urine (07/04/2016 8:38 PM EDT) Creatinine, Urine 22 mg/dL [facility] Protein, Urine 10 0 - 12 mg/dL [facility] Protein / Creatinine Ratio, Urine 0.5 ratio [facility] Urine specimen (specimen) 07/04/2016 8:38 PM EDT 07/04/2016 8:46 PM EDT Narrative Resulting Agency Comment Spec In Lab Jasmin Smith MD URINE ORDERABLES Performing Organization Address [facility] Co de Phone Number [facility] [place] [address] * TSH (07/04/2016 8:00 PM EDT) Thyroid Stimulating Hormone 2.40 0.27 - 4.20 mcIU/mL [facility] Blood specimen (specimen) Venous Draw / Unknown 07/04/2016 8:00 PM EDT 07/04/2016 8:53 PM EDT Narrative Resulting Agency Comment Spec In Lab Jasmin Smith MD CHEMISTRY ORDERABLES Performing Organization Address [facility] Co de Phone Number [facility] [place] [address] * Aspartate Aminotransferase (07/04/2016 8:00 PM EDT) Aspartate Aminotransferase 21 0 - 30 unit/L [facility] Blood specimen (specimen) Venous Draw / Unknown 07/04/2016 8:00 PM EDT 07/04/2016 8:47 PM EDT Narrative Resulting Agency Comment Spec In Lab Jasmin Smith MD CHEMISTRY ORDERABLES Performing Organization Address City/[facility] Co de Phone Number [facility] [place] [place] [address] * Troponin T (07/04/2016 8:00 PM EDT) Pathologist [facility] Troponin-T <0.03 <=0.03 ng/mL [facility] Comment: 0.03 ng/mL: Represents the 99th percentile upper reference limit for normals. >0.03 ng/mL: Elevated cardiac troponin T level indicative of myocardial damage. Diagnosis of acute, evolving or recent IN requires a typical rise and gradual fall of cTnT with at least ONE of the following: a) Ischemic symptoms b) Development of pathologic Q waves on the ECG c) ECG changes indicative of eschemia (S-T segment elevation/depression) d) Coronary artery intervention Serial bloods should be obtained for testing on admission, at 6 to 9 hrs and again at 12 to 24 hrs if earlier samples are negative and the clinical index of suspicion is high. Reference: [Myocardial infarction redefined? a consensus document of the [employer] Society of Cardiology/[place] [employer] Committee for the redefinition of myocardial infarction. ??Journal of the [place] [employer] 2000; 36: 959-969] Blood specimen (specimen) 07/04/2016 8:00 PM EDT 07/04/2016 8:47 PM EDT Narrative Resulting Agency Comment Spec In Lab Jasmin Smith MD CHEMISTRY ORDERABLES Performing Organization Address City/[facility]/ZIP Co de Phone Number [facility] [place] [address] * ECHO COMPLETE (07/04/2016 4:43 PM EDT) EF 74 HEARTLAB SYSTEM Anatomical Region Laterality Modality Other 07/04/2016 Narrative 07/04/2016 4:52 PM EDT Procedure: ?Transthoracic Echocardiogram Patient: ?KAMRON Torres ?(Age): 1985(31y) Med Rec#: ? [id number] ?Sex: ?F ? Site Loc: ? [facility] ?Ht / Wt: ??162(cm)/66(kg) Pt. Loc: ?ED ?BSA: ?1.7 Study Date: ?? 07/04/2016 ?Pt. Type: Inpatient Tape: ? Referring: Jasimn Smith Reading: Hardeep Long ([id number]) Substation Technician: Dominick Diaz Diagnosis: *ICD-10-PCS Chest pain, unspecified (R07.9) CPT Codes: *Echo Full (74466) *Spectral Doppler (60868) *Color Doppler (04109) Rhythm: ? Bradycardia BP: ? 170/81 SUMMARY: 1. Global left ventricular systolic function appears hyperdynamic. ??The quantitative left ventricular ejection fraction by biplane Redman's method is 74%.GLS -22.5% There are no left ventricular segmental wall motion abnormalities. 2. Right ventricular chamber size, wall thickness, and systolic function are within normal limits. 3. The cardiac valves appear structurally and functionally normal. 4. The pericardium appears normal and there is no evidence of a pericardial effusion. 5. See remainder of report for additional findings. Findings ? : Study Quality: ? Adequate Left Ventricle: ? The left ventricular chamber size is normal. ?Left ventricular wall thickness is normal. ?Global left ventricular systolic function appears hyperdynamic. ?The quantitative left ventricular ejection fraction by biplane Redman's method is 74%.GLS -22.5% ?There are no left ventricular segmental wall motion abnormalities. ?Doppler assessment is consistent with normal left sided filling pressure. Left Atrium: ? The left atrium is normal in size.34 ml/m2 Right Ventricle: ? Right ventricular chamber size, wall thickness, and systolic function are within normal limits. Right Atrium: ? The right atrium appears normal. Aortic Valve: ? The aortic valve is trileaflet. The leaflets are thin with normal excursion. There is no aortic stenosis or regurgitation present. Mitral Valve: ? The mitral valve appears normal in structure and function. ?There is mild (1+/4+) mitral regurgitation present. Tricuspid Valve: ? The tricuspid valve appears normal in structure and function. ?There is no evidence of tricuspid valve regurgitation present. Pulmonic Valve: ? The pulmonic valve appears normal in structure and function. ?There is trace pulmonic regurgitation present. Pericardium: ? The pericardium appears normal and there is no evidence of a pericardial effusion. Aorta: ? The aortic root is normal in size. ?The ascending aorta is normal in size. ?The left main coronary artery is visualized and originates normally from the aorta. ?The right coronary artery is visualized and originates normally from the aorta. Pulmonary Artery: ? The main pulmonary artery appears normal. Venous: ? The inferior vena cava appears normal in size. ?There is a greater than 50% respiratory change in the inferior vena cava dimension. Misc: ? See remainder of report for additional findings. ?Two-dimensional echo, spectral Doppler and color Doppler performed. Chambers 2D ?Value ?Units (Range) ? IVSd (2D) ? 1 ?cm ? LVPWd (2D) ?1.1 ?cm ? IVS:LVPW ratio (2D) 0.9 ?ratio ? LVIDd (2D) ?5.3 ?cm ? LVIDs (2D) ?2.7 ?cm ? LVIDd (2D) index ?3.1 ?cm/m2 ? LVIDs (2D) index ?1.6 ?cm/m2 ? LV FS (2D) ?48 ? % ? EF Teichholz (2D) ?? 79 ? % ? Ao root diameter (2D2.9 ?cm (2.1 - 3.6) ? Ascending Ao ?3.2 ?cm (2 - 3.5) ? Volumes/Mass ?Value ?Units (Range) ? LA Area 2 CH ?19 ? cm2 ? LA Area 4 CH ?18 ? cm2 (<21) ? LA ESV BP (A/L) inde34 ? ml/m2 ? RA AREA 4CH ? 15 ? cm2 ? LA ESV SP 4CH (MOD) 47 ? ml ? LA ESV SP 2CH (MOD) 57.6 ? ml ? LV ESV SP 4CH (MOD) 27.1 ? ml ? LV ESV SP 2CH (MOD) 24.2 ? ml ? LV EDV BP ? 104 ?ml ? LV ESV BP ? 26.5 ? ml ? BP EF (MOD) ? 74 ? % ? LV mass (2D) ?215.2 ?g ? LV mass (2D) index ??126.6 ?g/m2 ? Diastolic/Systolic Function ?Value ?Units (Range) ? MV E-wave Vmax ?1.6 ?m/sec ? MV deceleration [id number] ?msec ? MV A-wave Vmax ?0.3 ?m/sec ? MV E:A ratio ?4.7 ?ratio ? LV septal e' Vmax ?? 0.1 ?m/sec ? LV lateral e' Vmax ??0.2 ?m/sec ? LV average e' Vmax ??0.1 ?m/sec ? LV E:e' septal ratio16.4 ? ratio ? LV E:e' lateral rati10.9 ? ratio ? LV average E:e' rati13.6 ? ratio ? Measurement Trending Name ? 07/04/2016 ? LV EDV BP ?103.95 LVIDd (2D) ? 5.28 LV ESV BP ?26.55 LVIDs (2D) ? 2.72 Wall Motion: Segment Name ?Rest ? Base-Anteroseptal ?? Normal ? Base-Anterior ? Normal ? Base-Anterolateral ??Normal ? Base-Posterolateral Normal ? Base-Inferior ? Normal ? Base-Inferoseptal ?? Normal ? Mid-Anteroseptal ?Normal ? Mid-Anterior ?Normal ? Mid-Anterolateral ?? Normal ? Mid-Posterolateral ??Normal ? Mid-Inferior ?Normal ? Mid-Inferoseptal ?Normal ? Haughton-Septal ? Normal ? [place]-Anterior ? Normal ? [place]-Lateral ?Normal ? [place]-Inferior ? Normal ? [place]-Tip ?Normal ? This report has been electronically signed by: Hardeep Long M.D. ? 07/04/2016 16:52:05 Images reviewed and interpretation verified [facility] Cardiac Ultrasound [facility] Procedure Note Hardeep Long MD - 07/04/2016 Procedure: Transthoracic Echocardiogram Patient: KAMRON Torres (Age): 1985(31y) Med Rec#: [id number] Sex: F Site Loc: [facility] Ht / Wt: 162(cm)/66(kg) Pt. Loc: ED BSA: 1.7 Study Date: 07/04/2016 Pt. Type: Inpatient Tape: Referring: Jasmin Smith Reading: Hardeep Long ([id number]) Substation Technician: Dominick Diaz Diagnosis: *ICD-10-PCS Chest pain, unspecified (R07.9) CPT Codes: *Echo Full (81339) *Spectral Doppler (57982) *Color Doppler (09429) Rhythm: Bradycardia BP: 170/81 SUMMARY: 1. Global left ventricular systolic function appears hyperdynamic. The quantitative left ventricular ejection fraction by biplane Redman's method is 74%.GLS -22.5% There are no left ventricular segmental wall motion abnormalities. 2. Right ventricular chamber size, wall thickness, and systolic function are within normal limits. 3. The cardiac valves appear structurally and functionally normal. 4. The pericardium appears normal and there is no evidence of a pericardial effusion. 5. See remainder of report for additional findings. Findings : Study Quality: Adequate Left Ventricle: The left ventricular chamber size is normal. Left ventricular wall thickness is normal. Global left ventricular systolic function appears hyperdynamic. The quantitative left ventricular ejection fraction by biplane Redman's method is 74%.GLS -22.5% There are no left ventricular segmental wall motion abnormalities. Doppler assessment is consistent with normal left sided filling pressure. Left Atrium: The left atrium is normal in size.34 ml/m2 Right Ventricle: Right ventricular chamber size, wall thickness, and systolic function are within normal limits. Right Atrium: The right atrium appears normal. Aortic Valve: The aortic valve is trileaflet. The leaflets are thin with normal excursion. There is no aortic stenosis or regurgitation present. Mitral Valve: The mitral valve appears normal in structure and function. There is mild (1+/4+) mitral regurgitation present. Tricuspid Valve: The tricuspid valve appears normal in structure and function. There is no evidence of tricuspid valve regurgitation present. Pulmonic Valve: The pulmonic valve appears normal in structure and function. There is trace pulmonic regurgitation present. Pericardium: The pericardium appears normal and there is no evidence of a pericardial effusion. Aorta: The aortic root is normal in size. The ascending aorta is normal in size. The left main coronary artery is visualized and originates normally from the aorta. The right coronary artery is visualized and originates normally from the aorta. Pulmonary Artery: The main pulmonary artery appears normal. Venous: The inferior vena cava appears normal in size. There is a greater than 50% respiratory change in the inferior vena cava dimension. Misc: See remainder of report for additional findings. Two-dimensional echo, spectral Doppler and color Doppler performed. Chambers 2D Value Units (Range) IVSd (2D) 1 cm LVPWd (2D) 1.1 cm IVS:LVPW ratio (2D) 0.9 ratio LVIDd (2D) 5.3 cm LVIDs (2D) 2.7 cm LVIDd (2D) index 3.1 cm/m2 LVIDs (2D) index 1.6 cm/m2 LV FS (2D) 48 % EF Teichholz (2D) 79 % Ao root diameter (2D2.9 cm (2.1 - 3.6) Ascending Ao 3.2 cm (2 - 3.5) Volumes/Mass Value Units (Range) LA Area 2 CH 19 cm2 LA Area 4 CH 18 cm2 (<21) LA ESV BP (A/L) inde34 ml/m2 RA AREA 4CH 15 cm2 LA ESV SP 4CH (MOD) 47 ml LA ESV SP 2CH (MOD) 57.6 ml LV ESV SP 4CH (MOD) 27.1 ml LV ESV SP 2CH (MOD) 24.2 ml LV EDV BP 104 ml LV ESV BP 26.5 ml BP EF (MOD) 74 % LV mass (2D) 215.2 g LV mass (2D) index 126.6 g/m2 Diastolic/Systolic Function Value Units (Range) MV E-wave Vmax 1.6 m/sec MV deceleration soag595.2 msec MV A-wave Vmax 0.3 m/sec MV E:A ratio 4.7 ratio LV septal e' Vmax 0.1 m/sec LV lateral e' Vmax 0.2 m/sec LV average e' Vmax 0.1 m/sec LV E:e' septal ratio16.4 ratio LV E:e' lateral rati10.9 ratio LV average E:e' rati13.6 ratio Measurement Trending Name 07/04/2016 LV EDV BP 103.95 LVIDd (2D) 5.28 LV ESV BP 26.55 LVIDs (2D) 2.72 Wall Motion: Segment Name Rest Base-Anteroseptal Normal Base-Anterior Normal Base-Anterolateral Normal Base-Posterolateral Normal Base-Inferior Normal Base-Inferoseptal Normal Mid-Anteroseptal Normal Mid-Anterior Normal Mid-Anterolateral Normal Mid-Posterolateral Normal Mid-Inferior Normal Mid-Inferoseptal Normal Haughton-Septal Normal Haughton-Anterior Normal Haughton-Lateral Normal Haughton-Inferior Normal Haughton-Tip Normal This report has been electronically signed by: Miguel Long M.D. 07/04/2016 16:52:05 Images reviewed and interpretation verified [facility] Cardiac Ultrasound Laboratory Jasmin Smith MD ECHO ORDERABLES * (ABNORMAL) Urine culture (07/04/2016 3:53 PM EDT) Urine Culture 1,000-9,000 cfu/ml Gram Positive organisms , probable contaminant(A ) [facility] Urine specimen (specimen) 07/04/2016 3:53 PM EDT 07/04/2016 5:14 PM EDT Narrative Resulting Agency Comment Spec In Lab Jasmin Smith MD MICROBIOLOGY - GENER AL ORDERABLES Performing Organization Address City/[facility]/ZIP Co de Phone Number [facility] [place] [address] * Urine Hold (07/04/2016 3:53 PM EDT) Hold, Urine Sample in lab. [facility] Urine specimen (specimen) Urine / Unknown 07/04/2016 3:53 PM EDT 07/04/2016 4:07 PM EDT Jasmin Smith MD URINE ORDERABLES Performing Organization Address City/[facility] Co de Phone Number [facility] [place] [place] [address] * (ABNORMAL) Urinalysis with reflex Culture (07/04/2016 3:53 PM EDT) Glucose, Urine Dipstick Negative Negative mg/dL [facility] Protein, Urine Dipstick 30(A) Negative mg/dL [facility] Bilirubin, Urine Dipstick Negative Negative mg/dL [facility] Comment: Clinical correlation required for positive Urine Bilirubin results as false positive may occur with some drugs and drug related products. If a false positive is suspected a serum total bilirubin should be considered if clinically indicated. Urobilinogen, Urine Dipstick Normal Normal mg/dL [facility] pH, Urn (dipstick) 8.0 5.0 - 8.0 [facility] Blood, Urine Dipstick Large(A) Negative mg/dL [facility] Ketone, Urine Dipstick Negative Negative mg/dL [facility] Nitrite, Urine Dipstick Negative Negative [facility] Leukocytes, Urine Dipstick Moderate(A) Negative [facility] Appearance, Urine Dipstick Clear Clear [facility] Specific [place] Urine Automated 1.005 1.002 - 1.030 [facility] Color, Urine Dipstick Straw Yellow [facility] RBC, Urine 137(H) 0 - 4 /HPF [facility] WBC, Urine 21(H) 0 - 5 /HPF [facility] Bacteria, Urine Rare(A) None /HPF [facility] Squamous Epithelial Cells, Urine 2 <=4 /HPF [facility] Transitional Epithelial Cells, Urine <1 <=1 /HPF [facility] Renal Epithelial Cells, Urine <1(H) <=0 /HPF [facility] Reflex to Culture Yes [facility] Urine specimen (specimen) 07/04/2016 3:53 PM EDT 07/04/2016 4:07 PM EDT Narrative Resulting Agency Comment Spec In Lab Jasmin Smith MD URINE ORDERABLES [facility] [place] [place] [address] * XR Chest PA & Lateral (Generic) (07/04/2016 2:53 PM EDT) Anatomical Region Laterality Modality Chest N/A Digital Radiogra phy Impressions 07/04/2016 2:59 PM EDT Interval increase in heart size probably due to . No acute cardiopulmonary process. Narrative 07/04/2016 2:59 PM EDT EXAMINATION: XR CHEST PA AND LATERAL CLINICAL HISTORY: Bradycardia, chest pain, 4 days post TECHNIQUE: Upright PA and lateral chest COMPARISON: 02/09/2010 FINDINGS: The cardiac silhouette has increased in size, probably due to recent . The lungs remain clear. No pleural effusion, pneumothorax or other abnormality is seen. Procedure Note Binh Diaz MD - 07/04/2016 EXAMINATION: XR CHEST PA AND LATERAL CLINICAL HISTORY: Bradycardia, chest pain, 4 days post TECHNIQUE: Upright PA and lateral chest COMPARISON: 02/09/2010 FINDINGS: The cardiac silhouette has increased in size, probably due to recentpregnancy. The lungs remain clear. No pleural effusion, pneumothorax or otherabnormality is seen. IMPRESSION Interval increase in heart size probably due to . No acute cardiopulmonary process. Jasmin Smith MD IMG DX ORDERABLES * EKG 12 Lead (07/04/2016 1:24 PM EDT) Ventricular rate 50 BPM MUSE SYSTEM Atrial Rate 50 BPM MUSE SYSTEM P-R Interval 128 ms MUSE SYSTEM QRS Duration 88 ms MUSE SYSTEM Q-T Interval 448 ms MUSE SYSTEM QTC Calculated (Bezet) 408 ms MUSE SYSTEM Calculated P [place] 41 degrees MUSE SYSTEM Calculated R [place] 17 degrees MUSE SYSTEM Calculated T [place] 56 degrees MUSE SYSTEM INTERPRETATION Sinus bradycardia Possible Left atrial enlargement Borderline ECG No previous ECGs available Confirmed by MD FREY ALAN ([id number]) on 07/04/2016 3:33:11 PM MUSE SYSTEM 07/04/2016 1:24 PM EDT 07/04/2016 3:33 PM EDT Jasmin Smith MD ECG ORDERABLES MUSE SYSTEM * Phosphorus (07/04/2016 1:24 PM EDT) Pathologist [facility] Phosphorus 3.8 2.5 - 4.5 mg/dL [facility] Blood specimen (specimen) Venous Draw / Unknown 07/04/2016 1:24 PM EDT 07/04/2016 2:36 PM EDT Narrative Resulting Agency Comment Spec In Lab Jasmin Smith MD CHEMISTRY ORDERABLES [facility] [place] [address] * Magnesium (07/04/2016 1:24 PM EDT) Pathologist [facility] Magnesium 0.70 0.69 - 1.07 mmol/L [facility] Blood specimen (specimen) Venous Draw / Unknown 07/04/2016 1:24 PM EDT 07/04/2016 2:36 PM EDT Narrative Resulting Agency Comment Spec In Lab Jasmin Smith MD CHEMISTRY ORDERABLES [facility] [place] [place] [address] * Beta HCG, quantitative (07/04/2016 1:24 PM EDT) [facility] Beta Human Chorionic Gonadotropin, Quantitative 2,638 mlU/ML [facility] Comment: REFERENCE RANGES NON- FEMALE: ??Less [...] - 56,451 ?17 weeks ? 8,175 - 62,868 ?18 weeks ? 8,099 - 58,176 Blood specimen (specimen) Venous Draw / Unknown 07/04/2016 1:24 PM EDT 07/04/2016 2:18 PM EDT Narrative Resulting Agency Comment Spec In Lab Jasmin Smith MD CHEMISTRY ORDERABLES Performing Organization Address [facility]/State/ZIP Co de Phone Number [facility] [place] [address] * (ABNORMAL) pro-Brain Natriuretic Peptide (07/04/2016 1:24 PM EDT) [facility] NT-proBNP 1,228(H) <=125 pg/mL [facility] Blood specimen (specimen) Venous Draw / Unknown 07/04/2016 1:24 PM EDT 07/04/2016 1:42 PM EDT Narrative Resulting Agency Comment Spec In Lab Jasmin Smith MD CHEMISTRY ORDERABLES [facility] [place] [place] [address] * Gold Tube HOLD (07/04/2016 1:24 PM EDT) [facility] Gold Hold Sample in lab. [facility] Blood specimen (specimen) Venous Draw / Unknown 07/04/2016 1:24 PM EDT 07/04/2016 1:39 PM EDT Jasmin Smith MD CHEMISTRY ORDERABLES Performing Organization Address City/[facility]/ZIP Co de Phone Number [facility] [place] [address] * Blue Tube HOLD (07/04/2016 1:24 PM EDT) [facility] Blue Hold Sample in lab. [facility] Blood specimen (specimen) Venous Draw / Unknown 07/04/2016 1:24 PM EDT 07/04/2016 1:39 PM EDT Jasmin Smith MD HEMATOLOGY ORDERABLE S Performing Organization Address City/[facility]/ZIP Co de Phone Number [facility] [place] [address] * (ABNORMAL) Differential, Automated (07/04/2016 1:24 PM EDT) [facility] Neutrophil % 73.4 % [facility] Neutrophil Absolute 9.79(H) 1.70 - 6.10 x10(3)/mc L [facility] Lymph % 19.4 % [facility] Lymphocytes Abs 2.6 0.9 - 3.2 x10(3)/mc L [facility] Monocyte % 3.2 % [facility] Monocyte Abs 0.4 0.3 - 0.9 x10(3)/ L [facility] Eos % 2.8 % [facility] Eosinophils Abs 0.4 0.0 - 0.4 x10(3)/ L [facility] Basophil % 0.3 % [facility] Baso Absolute 0.0 0.0 - 0.1 x10(3)/[facility] Immature Gran % 0.90 % [facility] Comment: Immature granulocytes(IG's)percentage and absolute count will include metamyelocytes, myelocytes, and promyelocytes. Blood smears from CBCs yielding IG's will be scanned manually for concordance. If this scan disagrees with the automated IG or if promyelocytes are noted, a manual differential will be performed. Immature Gran Absolute 0.12(H) 0.00 - 0.04 x10(3)/ L [facility] Blood specimen (specimen) 07/04/2016 1:24 PM EDT 07/04/2016 1:39 PM EDT Narrative Resulting Agency Comment Spec In Lab Jasmin Smith MD HEMATOLOGY ORDERABLE S Performing Organization Address City/State/[facility] Co de Phone Number [facility] [place] [address] * (ABNORMAL) Hemogram (07/04/2016 1:24 PM EDT) White Blood Cell 13.3(H) 4.0 - 9.5 x10(3)/ L [facility] Red Blood Cell 3.91(L) 4.00 - 5.21 x10(6)/ L [facility] Hemoglobin 12.0 11.7 - 15.5 gm/dL [facility] Hematocrit 36.3 35.7 - 45.8 % [facility] Mean Cell Volume 92.8 82.6 - 94.4 fL [facility] Mean Cell Hemoglobin 30.7 27.1 - 32.0 pg [facility] Mean Cell Hemoglobin Concentration 33.1 31.7 - 35.0 gm/dL [facility] Platelet 271 145 - 357 x10(3)/mc L [facility] RDW Standard Deviation 48.0(H) 37.0 - 46.0 fL [facility] RDW coefficient of variation 14.1 11.5 - 14.1 % [facility] Mean Platelet Volume 12.2 7.6 - 12.9 fL [facility] NRBC% auto 0.0 % [facility] NRBC Absolute 0.000 0.000 - 0.000 x10(3)/mc L [facility] Blood specimen (specimen) 07/04/2016 1:24 PM EDT 07/04/2016 1:39 PM EDT Narrative Resulting Agency Comment Spec In Lab Jasmin Smith MD HEMATOLOGY ORDERABLE S [facility] [place] [place] [address] * Troponin T (07/04/2016 1:24 PM EDT) Troponin-T <0.03 <=0.03 ng/mL [facility] Comment: 0.03 ng/mL: Represents the 99th percentile upper reference limit for normals. >0.03 ng/mL: Elevated cardiac troponin T level indicative of myocardial damage. Diagnosis of acute, evolving or recent IN requires a typical rise and gradual fall of cTnT with at least ONE of the following: a) Ischemic symptoms b) Development of pathologic Q waves on the ECG c) ECG changes indicative of eschemia (S-T segment elevation/depression) d) Coronary artery intervention Serial bloods should be obtained for testing on admission, at 6 to 9 hrs and again at 12 to 24 hrs if earlier samples are negative and the clinical index of suspicion is high. Reference: [Myocardial infarction redefined? a consensus document of the Joint Society of Cardiology/[place] [employer] Committee for the redefinition of myocardial infarction. ??Journal of the [place] [employer] 2000; 36: 959-969] Blood specimen (specimen) 07/04/2016 1:24 PM EDT 07/04/2016 1:39 PM EDT Narrative Resulting Agency Comment Spec In Lab Jasmin Smith MD CHEMISTRY ORDERABLES [facility] [place] [address] * (ABNORMAL) Basic Metabolic Panel (non-fasting) (07/04/2016 1:24 PM EDT) Glucose 120 65 - 199 mg/dL [facility] Comment:Diabetes: >=200 mg/d L plus symptoms Blood Urea Nitrogen 10 8 - 18 mg/dL [facility] Creatinine 0.97 0.70 - 1.20 mg/dL [facility] Comment: Please note that the pediatric reference intervals supplied above were not validated at [facility]. Results from pediatric patients should be interpreted in conjunction to the patient's age, height and muscle mass. Sodium 141 135 - 145 mmol/L [facility] Comment:rechecked by [place] Potassium 3.4(L) 3.5 - 5.0 mmol/L [facility] Comment: Please note: ??Patients with WBC >100,000 may have falsely elevated Potassium levels. ??For accurate Potassium quantification in these patients send serum separator tube (gold top) for subsequent determinations. ??Contact the Clinical Chemistry Laboratory if there are any questions. Chloride 97(L) 98 - 107 mmol/L [facility] Carbon Dioxide 22 22 - 31 mmol/L [facility] Anion Gap 22(H) 5 - 15 mmol/L [facility] Calcium 10.2 8.5 - 10.5 mg/dL [facility] Est Glomerular Filtration Rate >60 >=60 [facility] Comment: This estimated GFR (eGFR) value was calculated using the MDRD equation which has been validated on patients between the ages of 18 and 70. The MDRD should not be used to assess kidney function in patients < 18 years of age or in patients with extremes of body mass, or in patients with acute kidney failure. This value should be multiplied by 1.2 for patients. For further information please copy and paste the following links into your internet browser. 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 Bradycardia Other specified cardiac dysrhythmias Other complications of the puerperium, not elsewhere classified Chest pain, unspecified Smoking tobacco complicating puerperium Tobacco use disorder complicating , childbirth, or the puerperium, condition or complication Cigarette smoker Tobacco use disorder Encounter for long-term (current) use of other medications Encounter for long-term (current) use of aspirin Personal history of allergy to narcotic agent Personal history of allergy to penicillin Personal history of allergy to other specified medicinal agents Chest pain Chest pain, unspecified documented in this encounter Administered Medications Inactive Administered Medications - up to 3 most recent administrations Medication Order MAR Action Action Date Dose Rate Site acetaminophen (TYLENOL) tablet 1,000 mg 1,000 mg, Oral, ONCE, 1 dose, On Jenelle 07/04/16 at 1448, Maximum dose of acetaminophen is 4000 mg from all sources in 24 hours., STAT Given 07/04/2016 3:20 PM EDT 1,000 mg acetaminophen (TYLENOL) tablet 650 mg 650 mg, Oral, EVERY 4 HOURS PRN, Starting on Jenelle 07/04/16 at 2328, Until Fri07/05/16 at 1542, Pain, Maximum dose of acetaminophen is 4000 mg from all sources in 24 hours., STAT Given 07/05/2016 1:02 PM EDT 650 mg Given 07/05/2016 9:04 AM EDT 650 mg Given 07/05/2016 1:43 AM EDT 650 mg diphenhydrAMINE (BENADRYL) injection 12.5 mg 12.5 mg, Intravenous, ONCE, 1 dose, On Jenelle 07/04/16 at 1842, STAT Given 07/04/2016 6:42 PM EDT 12.5 mg ketorolac (TORADOL) injection 30 mg 30 mg, Intravenous, ONCE, 1 dose, On Jenelle 07/04/16 at 1657, STAT Given 07/04/2016 5:37 PM EDT 30 mg prochlorperazine (COMPAZINE) injection 10 mg 10 mg, Intravenous, ONCE, 1 dose, On Jenelle 07/04/16 at 1657, STAT Given 07/04/2016 5:37 PM EDT 10 mg sodium chloride 0.9% infusion 150 mL/hr, Intravenous, CONTINUOUS, Starting on Jenelle 07/04/16 at 1657, Until Fri07/05/16 at 1542 New Bag 07/05/2016 1:56 AM EDT 150 mL/hr 150 mL/hr New Bag 07/04/2016 5:36 PM EDT 150 mL/hr 150 mL/hr documented in this encounter Active and Recently Administered Medications Times are shown in EDT. Scheduled Medication Order 07/03/2016 07/04/2016 07/05/2016 acetaminophen (TYLENOL) tablet 1,000 mg (COMPLETED) 1,000 mg, Oral, ONCE, 1 dose, On Jenelle 07/04/16 at 1448, Maximum dose of acetaminophen is 4000 mg from all sources in 24 hours., STAT 1520 (Given - Provider: Veronique Cedillo RN) diphenhydrAMINE (BENADRYL) injection 12.5 mg (COMPLETED) 12.5 mg, Intravenous, ONCE, 1 dose, On Jenelle 07/04/16 at 1842, STAT 1842 (Given - Provider: Veronique Cedillo RN) ketorolac (TORADOL) injection 30 mg (COMPLETED) 30 mg, Intravenous, ONCE, 1 dose, On Jenelle 07/04/16 at 1657, STAT 1737 (Given - Provider: Veronique Cedillo SYBIL) LORazepam (ATIVAN) injection 1 mg 1 mg, Intravenous, ONCE, 1 dose, On Jenelle 07/04/16 at 1842, STAT 1842 (Not Given - Provider: Lexie Mckeon RN - Reason: Patient/family refused) prochlorperazine (COMPAZINE) injection 10 mg (COMPLETED) 10 mg, Intravenous, ONCE, 1 dose, On Jenelle 07/04/16 at 1657, STAT 1737 (Given - Provider: Veronique Cedillo RN) Continuous Medication Order 07/03/2016 07/04/2016 07/05/2016 sodium chloride 0.9% infusion 150 mL/hr, Intravenous, CONTINUOUS, Starting on Jenelle 07/04/16 at 1657, Until Fri07/05/16 at 1542 1736 (New Bag - Provider: Veronique Cedillo RN) 0156 (New Bag - Provider: Rosina Pastor, SYBIL)0900 (Stopped - Provider: Kirti Adams, SYBIL) PRN Medication Order 07/03/2016 07/04/2016 07/05/2016 acetaminophen (TYLENOL) tablet 650 mg 650 mg, Oral, EVERY 4 HOURS PRN, Starting on Jenelle 07/04/16 at 2328, Until 07/05/16 at 1542, Pain, Maximum dose of acetaminophen is 4000 mg from all sources in 24 hours., STAT 0143 (Given - Provid er: Rosina Pastor, SYBIL)0904 (Given - Provider: Macarena Bennett LPN)1302 (Given - Provider: Kirti Adams, SYBIL) documented in this encounter Care Teams Manager R D Relationship Specialty Start Date End Date [place] [address] [place] [address] PCP - General 09/03/12 03/21/19 documented as of this encounter
--- OUTSIDE RECORDS SUMMARY | 2024-09-20 11:17 | XMS_ITS | Encounter Summary ---
Author Organization [facility] Address [address] [place] [address] Care Team Providers Care [employer] Name Role Phone None, Provider Primary Care Provider Unavailabl e Encounter Details Date Type Department Care Team (Latest Contact Info) Description 12/10/2023 Lab Requisition [facility] Pathology & Laboratory Medicine - [facility] [address] [place] [address] Danielle Bennett MD [address] [place] [address] [address] [place] [id number] Encounter for screening for infections with a predominantly sexual mode of transmission; Other specified noninflammatory disorders of vagina Social History Tobacco Use Types Packs/Day Years Used Date Smoking Tobacco: Never Assessed Interpersonal Safety Answer Date Record ed Physically Hurt Never 05/21/2020 Verbally Threaten Not on file 05/21/2020 Comments No Sex and Gender Information Value Date Recorded Sex Assigned at Not on file Legal Sex Female 18:29 EST Gender Identity Female 09/03/2022 13:23 EST Sexual Orientation Not on file documented as of this encounter Functional Status * Are you deaf or do you have serious difficulty hearing? Answer Date of Assessment Author No 09/03/2022 12:02 EST Dee Whitley RN documented as of this encounter Plan of Treatment Not on file documented as of this encounter Procedures Procedure Name Priority Date/Time Associated Diagnosis Comments PAP TEST Today 12/09/2023 9:45 EST Encounter for screening for infections with a predominantly sexual mode of transmission Other specified noninflammatory disorders of vagina HPV DNA DETECTION WITH GENOTYPING, PCR Today 12/09/2023 9:45 EST Encounter for screening for infections with a predominantly sexual mode of transmission Other specified noninflammatory disorders of vagina documented in this encounter Results * HUMAN PAPILLOMAVIRUS (HPV) DETECTION-HIGH RISK TYPES (12/09/2023 9:45 EST) HPV other High Risk types, PCR Negative Negative 12/18/2023 18:36 [facility] Comment:No E6 or E7 mRNA is detected from HPV types 16,18,31,33,35,39,45,51,52,56,58,59,66, and 68 by newscast producer mediated amplification. Pap Test CERVIX UTERI STRUCTURE / Unknown 12/09/2023 9:45 EST 12/18/2023 8:51 EST us Danielle Bennett MD MICROBIOLOGY - GENERAL ORDERAB LES Final Result [facility] [address] [place] [address] * PAP TEST (12/09/2023 9:45 EST) Specimens A. Cervix and/or Endocervix , ThinPrep Imaging System with Manual Evaluation 12/18/2023 18:36 [facility] Specimen Adequacy Satisfactory for Evaluation - transformation zone component present 12/18/2023 18:36 [facility] General Categorization Negative for intraepithelial lesion or malignancy 12/18/2023 18:36 [facility] Descriptive Diagnosis Shift in al present suggestive of bacterial vaginosis. 12/18/2023 18:36 [facility] Attestation . 12/18/2023 18:36 [facility] at 1836 Clinical History See below 12/18/19 18:36 [facility] HPV The result for the Human Papillomavirus (HPV) Detection-High Risk Types is Negative. No E6 or E7 mRNA is detected from HPV types 16,18,31,33,35,39 ,45,51,52,56,58,5 9,66, and 68 by newscast producer mediated amplification.Madina ting was performed on specimen [id number] and was resulted on 12/18/2023 1836 EST by RINA, LAB INSTRUMENT RESULTS IN 12/18/2023 18:36 EST [facility] Performing Lab [facility] 12/18/2023 18:36 EST [facility] Scanned Images 12/18/2023 18:36 EST [facility] Pap Test CERVIX UTERI STRUCTURE / Unknown 12/09/2023 9:45 EST 12/10/2023 10:53 EST us Danielle Bennett MD PATHOLOGY ORDERABLES Final Res ult [facility] [address] [place], [place] [id number] documented in this encounter Visit Diagnoses Diagnosis Encounter for screening for infections with a predominantly sexual mode of transmission Other specified noninflammatory disorders of vagina documented in this encounter Care Teams [employer] Relationship Specialty Start Date End Date None, Provider PCP - General 09/03/22 documented as of this encounter
--- OUTSIDE RECORDS SUMMARY | 2024-09-20 11:17 | XMS_ITS | Encounter Summary ---
Author Organization [facility] [place] [address] Care Team Providers Care Retort Press Operator Name Role Phone Mary Trotter ADRIAN Primary Care Provider +1- [phone] Encounter Details Date Type Department Care Team (Late st Contact Info) Description 10/19/2015 Telephone Cardiology at [address] [address] Issac Collins Jr., MD [address] [place] [address] Social History Tobacco Use Types Packs/Day Years [...] encounter Miscellaneous Notes * Telephone Encounter - Shannan Smith RN - 10/26/2015 9:18 AM EST [facility] Called her PCP and they do indeed want her seen. I have rescheduled her for 12/13 and her PCP will get in touch with her to give her the appt time and date * Telephone Encounter - Aura Collins RN - 10/23/2015 3:54 PM EST Left message for pt to call back so we could explain she can be seen prn. * Telephone Encounter - Lien Mcclain RN - 10/19/2015 9:11 AM EST Attempted to call patient to discuss the appointment that was cancelled for yesterday that she showed up for. Per note after last Echo, she only needs follow up visits PRN. documented in this encounter Plan of Treatment Upcoming Encounters Date Type Department Care Team (Late st Contact Info) Description 09/21/2024 8:15 AM EST Routine Obstetrics [place] [address] Emili Cabrera MD [facility] [place] [address] 09/26/2024 6:00 PM EST [facility] [phone] 10/16/2024 [place] [address] Dudley Aguilar MD [facility] OBSTETRICS [place] [address] 11/08/2024 10:00 AM EST Hospital Encounter Non[place] [phone] Arrived documented as of this encounter Visit Diagnoses Not on filedocumented in this encounter Care Teams Retort Press Operator Relationship Specialty Start Date End Date Mary Trotter APRN [facility] [place] [address] PCP - General 09/03/12 03/21/19 documented as of this encounter
--- OUTSIDE RECORDS SUMMARY | 2024-09-20 11:17 | XMS_ITS | Encounter Summary ---
Author Organization [facility] Address [facility] [place] [address] Care Team Providers Care Sewer Cleaner Name Role Phone Mary Trotter MULTIPLE EFFECT EVAPORATOR OPERATOR Primary Care Provider +1- [phone] Encounter Details Date Type Department Care Team (Late st Contact Info) Description 09/17/2012 Orders [place] [address] Stephon Waldron MD [facility] CRITICAL [place] [address] SOB (shortness of breath) (Primary Dx) Social History Tobacco Use Types Packs/Day Years Used Date Smoking Tobacco: Never Assessed Sex and Gender Information Value Date Recorded Sex Assigned at Female 03/02/2024 7:39 AM EDT Gender Identity Female 03/02/2024 7:39 AM EDT Sexual Orientation Bisexual 03/02/2024 7: 39 AM EDT documented as of this encounter Plan of Treatment Upcoming Encounters Date Type Department Care Team (Late st Contact Info) Description 09/21/2024 8:15 AM EST Routine Obstetrics [place] [address] Emili Cabrera MD [facility] MATERNAL AND MEDICINE [place], [place] [id number] 09/26/2024 6:00 PM EST Appointment [facility] [place] [address] 10/16/2024 Hospital [place] [address] Dudley Aguilar MD [facility] DR OBSTETRICS [place] [address] 11/08/2024 10:00 AM EST Hospital Encounter Non-[place]vasive [place] [phone] Arrived documented as of this encounter Visit Diagnoses Diagnosis SOB (shortness of breath)- Primary Shortness of breath documented in this encounter Care Teams Sewer Cleaner Relationship Specialty Start Date End Date [place] [address] PCP - General 09/03/12 03/21/19 documented as of this encounter
--- OUTSIDE RECORDS SUMMARY | 2024-09-20 11:17 | XMS_ITS | Clinical Summary ---
Author Organization [facility] Address [address] [place] [address] Care Team Providers Care Automobile Radiator Mechanic Name Role Phone None, Provider Primary Care Provider Unavailabl e Allergies Active Allergy Reactions Criticality Noted Date Comments Morphine High 12/14/2015 Quetiapine Rash 12/14/2015 Medications DIPHENHYDRAMINE HCL (BENADRYL ALLERGY ORAL) Take by mouth as needed. Active clonazepam (KLONOPIN) 0.5 mg tablet Take 0.5 mg by mouth 3 times daily. Active ondansetron (ZOFRAN) 4 mg tablet Take 4 mg by mouth as needed for Nausea. Active labetalol (NORMODYNE) 100 mg tablet Take 100 mg by mouth daily. Active doxepin (SINEQUAN) 25 mg capsule Take 25 mg by mouth twice a week. Active Active Problems Problem Noted Date Diagnosed Date Chronic hypertension during , antepartu m 12/26/2015 Overview (12/26/2015): On labetalol 100 BID since first trimester, s/p MFM consult at 10 weeks -baseline 24hr urine, HELLP labs, close monitoring of BPs and surveillance for siPreE -LDA starting at 12 weeks -monthly growth US after 28 weeks, testing after 32 weeks Depression affecting , antepartum 12/25 Overview (12/26/2015): Long hx depression with multiple psychiatric admissions Stable on doxepin recently (tried mult SSRIs w/o success)--her psychiatrist is weaning this during Weekly counseling at [facility], monthly psychiatrist appts (Dr Valentine) Rec doxepin at lowest dose necessary for stability -detailed US, neomed consult in 3rd tri, monitor for WILEY after delivery -Caution with --ok only if monitored for sedation, weight gain D/c'd gabapentin and valium in first tri, using benadryl as needed for sleep--anxiety stable - disc can try short acting benzo if anxiety uncontrolled, but may increase risk of WILEY Anxiety 01/26/2010 Smoker 01/26/2010 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 (01/26/2010): Oral Chronic nausea 01/26/2010 Anemia 01/26/2010 Overview (01/26/2010): Iron deficiency Surgical History Surgery Date Site/Laterality Comments LEEP 2011 Medical History Medical History Date Comments Abnormal Pap smear of cervix HTN (hypertension) Depression Anxiety Asthma Environmental and seasonal allergies Social History Tobacco Use Types Packs/Day Years Used Date Smoking Tobacco: Never Assessed Interpersonal Safety Answer Date Record ed Physically Hurt Never 05/21/2020 Verbally Threaten Not on file 05/21/2020 Comments No Sex and Gender Information Value Date Recorded Sex Assigned at Not on file Legal Sex Female 18:29 EST Gender Identity Female 09/03/2022 13:23 EST Sexual Orientation Not on file Obstetrics History Para Term AB IAB SAB Ectopic Multiple Livin g Live Births 4 2 2 1 1 2 2 Date Outcome GA Total Labor Labor/2nd/3rd Weight Sex Type Anes PTL Stephany A1 A5 Name Clin 2002 SAB 16w 0d 2002 Term 40w 4d 3289 g (7 lb 4 oz) M Vag-S pont Living 2008 Term 39w 0d 2977 g (6 lb 9 oz) Vag-S pont Living Last Filed Vital Signs Vital Sign Reading Time Taken Comments Blood Pressure 153/82 09/03/2022 1332 EST Pulse - - Temperature 36.1 ??C (97 ??F) 09/03/2022 1204 EST Respiratory Rate 18 09/03/2022 1204 EST Oxygen Saturation 100% 09/03/2022 1332 EST Inhaled Oxygen Concentration - - Weight 65.8 kg (145 lb) 12/14/2015 0904 EST Height 162.6 cm (5' 4) 12/14/2015 0904 EST Body Mass Index 24.89 12/14/2015 0904 EST Plan of Treatment Health Maintenance Due Date Last Done Comments Hepatitis C Screen 1984 Hepatitis B Vaccine (1 of 3 - 19+ 3-dose series) 06/23 COVID-19 Vaccine (2023- season) 2024 [place] Care Teams Automobile Radiator Mechanic Relationship Specialty Start Date End Date None, Provider PCP - General 09/03/22
--- OUTSIDE RECORDS SUMMARY | 2024-09-20 11:17 | XMS_ITS | Encounter Summary ---
Author Organization [facility] Address [facility] [place] [address] Care Team Providers Care Black Top Raker Name Role Phone Mary Trotter ADRIAN Primary Care Provider +1- [phone] Encounter Details Date Type Department Care Team (Late st Contact Info) Description 08/03/2014 Abstract Cardiology at [address] [address] Lien Mcclain RN Social History Tobacco Use Types Packs/Day [...] AM EST Routine Obstetrics [place] [address] Emili Cabrera MD [facility] MATERNAL AND MEDICINE [place], [place] [id number] 09/26/2024 6:00 PM EST Appointment [facility] [place] [address] 10/16/2024 Hospital Encounter [place] [address] Dudley Aguilar MD [facility] DR OBSTETRICS [place] [address] 11/08/2024 10:00 AM EST Hospital Encounter Non-[place] [address] Arrived documented as of this encounter Visit Diagnoses Not on filedocumented in this encounter Care Teams Black Top Raker Relationship Specialty Start Date End Date [place] [address] PCP - General 09/03/12 03/21/19 documented as of this encounter
--- OUTSIDE RECORDS SUMMARY | 2024-09-20 11:17 | XMS_ITS | Encounter Summary ---
Author Organization [facility] Address [facility] [place] [address] Care Team Providers Care Receiving And Processing Supervisor Name Role Phone Mary Trotter ADRIAN Primary Care Provider [phone]- [phone] Reason for Visit * Reason Comments Vaginal Bleeding Encounter Details Date Type Department Care Team (Late st Contact Info) Description 01/12/2019 10:41 PM EDT - 01/13/2019 2:10 AM EDT [place] [address] Kunal Carpio MD [facility] [place] [address] Vaginal bleeding Discharge Disposition: Home Social History Tobacco [...] Sign Reading Time Taken Comments Blood Pressure 155/88 01/13/2019 1:31 AM EDT Pulse 63 01/13/2019 1:31 AM EDT Temperature 37.1 ??C (98.8 ??F) 01/13/2019 1:31 AM ED T Respiratory Rate 17 01/13/2019 1:31 AM EDT Oxygen Saturation 98% 01/13/2019 1:31 AM EDT Inhaled Oxygen Concentration - - Weight - - Height - - Body Mass Index - - documented in this encounter Discharge Instructions * Attachments The following attachments cannot be sent through Care Everywhere. * AUB (Abnormal Uterine Bleeding) (Greek) documented in this encounter Medications at Time of Discharge Medication Sig Dispensed Refills Start Date End Date ipratropium-albuteroL (Duoneb) 0.5 mg-3 mg(2.5 mg base)/3 mL Solution for Nebulization Every 6 hours. 12/29/2017 calcium carbonate (TUMS) 200 mg calcium (500 mg) Tablet, Chewable Take 1 tablet by mouth as needed. documented as of this encounter ED Notes * Kunal Carpio MD - 01/13/2019 1:55 AM EDT Chief Complaint Patient presents with ??? Vaginal Bleeding 33-year-old female who presents with 1 day of persistent vaginal bleeding, lower abdominal pain, dizziness. Patient reports that she is sexually active and had a home test that was faintlypositiveand given the persistence of symptoms came in for further evaluation. Patient denies any syncope, trauma today but has a history of 2 prior miscarriages and reports that this feels like her second miscarriage. Patient also reports that she has irregular menstrual periods and does not know when her last menstrual period was. In the best of what she knows it may have been anywhere from 1-2 months ago. Allergies Allergen Reactions ??? Morphine Unknown reaction ??? Penicillins Rash ??? Seroquel [Quetiapine] Made head feel loopy. Review of Systems Genitourinary: Positive for vaginal bleeding. Neurological: Positive for dizziness. All other systems reviewed and are negative. Physical Exam Constitutional: She is oriented to person, place, and time. She appears well-developed. HENT: Head: Normocephalic. Eyes: Pupils are equal, round, and reactive to light. Neck: Normal range of motion. Cardiovascular: Normal rate, regular rhythm and normal heart sounds. No murmur heard. Pulmonary/Chest: Effort normal and breath sounds normal. No respiratory distress. She has no wheezes. Abdominal: Soft. Bowel sounds are normal. She exhibits no distension and no mass. There is no tenderness. There is no rebound and no guarding. Genitourinary: Uterus normal. Vaginal discharge found. Genitourinary Comments: Pelvic exam done that included a speculum and bimanual exam. Speculum exam shows old blood in the pouch of Perico. Cervical Os is closed and no other active source of bleeding such as lacerations, masses, lesions. Bimanual exam confirms that the cervical office is closed and there is no cervical motion tenderness or adnexal masses that are palpated. Musculoskeletal: Normal range of motion. Neurological: She is alert and oriented to person, place, and time. No cranial nerve deficit or sensory deficit. She exhibits normal muscle tone. Skin: Skin is warm. Capillary refill takes less than 2 seconds. Psychiatric: She has a normal mood and affect. Nursing note and vitals reviewed. Procedures MDM ED Course: 33-year-old female presents with lower abdominal pain and vaginal bleeding. In the emergency department the patient is noted to have stable vitals, benign external abdominal exam except for some lower abdominal, suprapubic abdominal pain. Patient has a negative serum beta hCG and urine test. Bimanual exam and speculum exam shows stable and controlled bleeding. Patient counseled about the etiology of bleeding being secondary to hemorrhagic ovarian cyst versus just a routine/irregular menstrual period. Patient was counseled on appropriate aftercare and return precautions such as monitoring for heavy bleeding, syncope, lightheadedness. Discussion about OCP's was also entertained but the patient expressed a desire to become and thus I recommended further discussion with herprimary care doctor and BRAND SALES MANAGER. Patient expressed understanding of these recommendations and was agreeable to be discharged home with appropriate aftercare and return precautions. Kunal Carpio MD 01/13/19 0202 documented in this encounter Miscellaneous Notes * ED Triage - Ronel Mcintosh RN - 01/12/2019 10:45 PM EDT Pt with increasing vaginal bleeding with large clots that now is accompanied with abdominal pain that radiates from lower quadrants to back. +Nausea. Recent test at home was positive. Unknown LMP due to irregularity. Last in 2016. . documented in this encounter Plan of Treatment Upcoming Encounters Date Type Department Care Team (Late st Contact Info) Description 09/21/2024 8:15 AM EST Routine Obstetrics [place] [address] Emili Cabrera MD [facility] MATERNAL [place] [address] 09/26/2024 6:00 PM EST Appointment [facility] [place] [address] 10/16/2024 Hospital [place] [phone] Dudley Aguilar MD [facility] DR OBSTETRICS [place] [address] 11/08/2024 10:00 AM EST Hospital Encounter [place] [address] Arrived documented as of this encounter Procedures Procedure Name Priority Date/Time Associated Diagnosis Comments HEMOGRAM STAT 01/12/2019 11:55 PM EDT DIFFERENTIAL, AUTOMATED STAT 01/12/2019 11:55 PM EDT GOLD TUBE HOLD STAT 01/12/2019 11:55 PM EDT BLUE TUBE HOLD STAT 01/12/2019 11:55 PM EDT CBC (WITH DIFF) STAT 01/12/2019 11:55 PM EDT BETA HCG, QUANTITATIVE STAT 01/12/2019 11:55 PM EDT POCT URINE STAT 01/12/2019 11:48 PM EDT URINALYSIS MICROSCOPIC EXAM STAT 01/12/2019 11:39 PM EDT URINALYSIS WITH REFLEX CULTURE STAT 01/12/2019 11:39 PM EDT URINE CULTURE STAT 01/12/2019 11:39 PM EDT documented in this encounter Results * Gold Tube HOLD (01/12/2019 11:55 PM EDT) Gold Hold Sample in lab. [facility] Blood specimen (specimen) Venous Draw / Unknown 01/12/2019 11:55 PM EDT 01/13/2019 12:11 AM EDT Kunal Carpio MD CHEMISTRY ORDERABLES Performing Organization Address [facility] Co de Phone Number [facility] [place] [address] * Blue Tube HOLD (01/12/2019 11:55 PM EDT) Blue Hold Sample in lab. [facility] Blood specimen (specimen) Venous Draw / Unknown 01/12/2019 11:55 PM EDT 01/13/2019 12:11 AM EDT Kunal Carpio MD HEMATOLOGY ORDERABLE S Performing Organization Address City/[facility]/ZIP Co de Phone Number [facility] [place] [address] * Differential, Automated (01/12/2019 11:55 PM EDT) Neutrophil % 56.9 % [facility] Neutrophil Absolute 4.98 1.70 - 6.10 x10(3)/[facility] Lymph % 31.8 % [facility] Lymphocytes Abs 2.8 0.9 - 3.2 x10(3)/[facility] Monocyte % 6.9 % [facility] Monocyte Abs 0.6 0.3 - 0.9 x10(3)/[facility] Eos % 3.3 % [facility] Eosinophils Abs 0.3 0.0 - 0.4 x10(3)/[facility] Basophil % 0.8 % [facility] Baso Absolute 0.1 0.0 - 0.1 x10(3)/[facility] Immature Gran % 0.30 % [facility] Comment: Immature granulocytes(IG's)percentage and absolute count will include metamyelocytes, myelocytes, and promyelocytes. Blood smears from CBCs yielding IG's will be scanned manually for concordance. If this scan disagrees with the automated IG or if promyelocytes are noted, a manual differential will be performed. Immature Gran Absolute 0.03 0.00 - 0.04 x10(3)/[facility] Blood specimen (specimen) 01/12/2019 11:55 PM EDT 01/13/2019 12:10 AM EDT Narrative Resulting Agency Comment Spec In Lab Kunal Carpio MD HEMATOLOGY ORDERABLE S [facility] [place] [address] * Hemogram (01/12/2019 11:55 PM EDT) White Blood Cell 8.8 4.0 - 9.5 x10(3)/[facility] Red Blood Cell 4.62 4.00 - 5.21 x10(6)/[facility] Hemoglobin 13.8 11.7 - 15.5 gm/dL [facility] Hematocrit 41.8 35.7 - 45.8 % [facility] Mean Cell Volume 90.5 82.6 - 94.4 fL [facility] Mean Cell Hemoglobin 29.9 27.1 - 32.0 pg [facility] Mean Cell Hemoglobin Concentration 33.0 31.7 - 35.0 gm/dL [facility] Platelet 196 145 - 357 x10(3)/[facility] RDW Standard Deviation 43.5 37.0 - 46.0 [facility] RDW coefficient of variation 13.2 11.5 - 14.1 % [facility] Mean Platelet Volume 11.6 7.6 - 12.9 fL [facility] NRBC% auto 0.0 % [facility] NRBC Absolute 0.000 0.000 - 0.000 x10(3)/[facility] Blood specimen (specimen) 01/12/2019 11:55 PM EDT 01/13/2019 12:10 AM EDT Narrative Resulting Agency Comment Spec In Lab Kunal Carpio MD HEMATOLOGY ORDERABLE S [facility] [place] [address] * Beta HCG, quantitative (01/12/2019 11:55 PM EDT) Beta Human Chorionic Gonadotropin, Quantitative <1 mlU/ML [facility] [...] ? 8,099 - 58,176 Blood specimen (specimen) 01/12/2019 11:55 PM EDT 01/13/2019 12:10 AM EDT Narrative Resulting Agency Comment Spec In Lab Kunal Carpio MD CHEMISTRY ORDERABLES Performing Organization Address [facility] Co de Phone Number [facility] [place] [address] * POCT urine (01/12/2019 11:48 PM EDT) POC Urine HCG Negative Negative - Negative POC Control Internal Controls Acceptable 01/12/2019 11:4 8 PM EDT Kunal Carpio MD POINT OF CARE TEST O RDERABLES * (ABNORMAL) Urine culture (01/12/2019 11:39 PM EDT) Urine Culture 1,000-9,000 cfu/ml Gram Positive organisms , probable contaminant(A ) [facility] Urine specimen obtained by clean catch procedure (specimen) 01/12/2019 11:39 PM EDT 01/13/2019 7:48 AM EDT Narrative Resulting Agency Comment Spec In Lab Kunal Carpio MD MICROBIOLOGY - GENER AL ORDERABLES Performing Organization Address [facility] Co de Phone Number [facility] [place] [address] * (ABNORMAL) Urinalysis Microscopic Exam (01/12/2019 11:39 PM EDT) RBC, Urine 23(H) 0 - 4 /HPF [facility] WBC, Urine 18(H) 0 - 5 /HPF [facility] Bacteria, Urine Few(A) None /HPF [facility] Squamous Epithelial Cells Raw Data, Urine 5(H) <=4 /HPF [facility] Urine specimen obtained by clean catch procedure (specimen) 01/12/2019 11:39 PM EDT 01/13/2019 12:02 AM EDT Narrative Resulting Agency Comment Spec In Lab Kunal Carpio MD URINE ORDERABLES Performing Organization Address City/[facility]/ZIP Co de Phone Number [facility] [place] [address] * (ABNORMAL) Urinalysis with reflex Culture (01/12/2019 11:39 PM EDT) Glucose, Urine Dipstick 50(A) Negative mg/dL [facility] Protein, Urine Dipstick 100(A) Negative mg/dL [facility] pH, Urn (dipstick) 7.0 5.0 - 8.0 [facility] Blood, Urine Dipstick Moderate(A) Negative mg/dL [facility] Ketone, Urine Dipstick Negative Negative mg/dL [facility] Nitrite, Urine Dipstick Positive(A) Negative [facility] Leukocytes, Urine Dipstick Negative Negative [facility] Appearance, Urine Dipstick Clear Clear [facility] Specific [place] Urine Automated 1.005 1.002 - 1.030 [facility] Color, Urine Dipstick Red Yellow [facility] Reflex to Culture Yes [facility] Urine specimen obtained by clean catch procedure (specimen) 01/12/2019 11:39 PM EDT 01/13/2019 12:02 AM EDT Narrative Resulting Agency Comment Spec In Lab Kunal Carpio MD URINE ORDERABLES Performing Organization Address City/[facility]/ZIP Co de Phone Number [facility] [place] [address] documented in this encounter Visit Diagnoses Diagnosis Vaginal bleeding Other specified noninflammatory disorder of vagina documented in this encounter Administered Medications Inactive Administered Medications - up to 3 most recent administrations Medication Order MAR Action Action Date Dose Rate Site acetaminophen (TYLENOL) tablet 650 mg 650 mg, Oral, ONCE, 1 dose, On Fri01/12/19 at 2350, Maximum dose of acetaminophen is 4000 mg from all sources in 24 hours., STAT Given 01/13/2019 12:06 AM EDT 650 mg lactated Ringers 1,000 mL IV bolus Intravenous, ONCE, 1 dose, On Fri01/12/19 at 2350 New Bag 01/13/2019 12:02 AM EDT documented in this encounter Active and Recently Administered Medications Times are shown in EDT. Scheduled Medication Order 01/11/2019 01/12/2019 01/13/2019 acetaminophen (TYLENOL) tablet 650 mg (COMPLETED) 650 mg, Oral, ONCE, 1 dose, On Fri01/12/19 at 2350, Maximum dose of acetaminophen is 4000 mg from all sources in 24 hours., STAT 0006 (Given - Provid er: Za De RN) lactated Ringers 1,000 mL IV bolus (COMPLETED) Intravenous, ONCE, 1 dose, On Fri01/12/19 at 2350 0002 (New Bag - Prov ider: Za De RN)0100 (Stopped - Provider: Za De RN) documented in this encounter Care Teams Receiving And Processing Supervisor Relationship Specialty Start Date End Date Mary [place] [address] [place] [address] PCP - General 09/03/12 03/21/19 documented as of this encounter
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
--- OUTSIDE RECORDS SUMMARY | 2024-09-20 11:17 | XMS_ITS | Encounter Summary ---
Author Organization [facility] Address [address] [place] [address] Care Team Providers Care Sterilizer Operator Name Role Phone None, Provider Primary Care Provider Unavailabl e Encounter Details Date Type Department Care Team (Late st Contact Info) Description 12/09/2023 Lab Requisition [facility] [address] [place] [address] Outr Resulting Lab, Provider Social History Tobacco Use Types Packs/Day Years [...] Procedure Name Priority Date/Time Associated Diagnosis Comments CHLAMYDIA/N. GONORRHOEAE AMPLIFIED NUCLEIC ACID Routine 12/09/2023 9:45 EST documented in this encounter Results * CHLAMYDIA/N. GONORRHOEAE AMPLIFIED RNA (12/09/2023 9:45 EST) Neisseria gonorrhoeae Result Negative Negative 12/10/2023 13:14 EST [facility] Chlamydia trachomatis Result Negative Negative 12/10/2023 13:14 EST [facility] Swab ENDOCERVICAL STRUCTURE / Unknown 12/09/2023 9:45 EST 12/09/2023 16:30 EST us Provider Outr Resulting Lab MICROBIOLOGY - GENER AL ORDERABLES Final Result [facility] [address] [place] [address] documented in this encounter Visit Diagnoses Not on filedocumented in this encounter Care Teams Sterilizer Operator Relationship Specialty Start Date End Date None, Provider PCP - General 09/03/22 documented as of this encounter
--- OUTSIDE RECORDS SUMMARY | 2024-09-20 11:17 | XMS_ITS | Encounter Summary ---
Author Organization [facility] [place] [address] Care Team Providers Care Floating Labor Gang Supervisor Name Role Phone Mary Trotter [employer] Primary Care Provider +1- [phone] Encounter Details Date Type Department Care Team (Late st Contact Info) Description 07/24/2014 Orders [place] [address] Papa Lutz MD [facility] [address] Social History Tobacco Use Types Packs/Day Years [...] AM EST Routine Obstetrics [place] [phone] Emili Cabrera MD [facility] MATERNAL [place] [address] 09/26/2024 6:00 PM EST Appointment [facility] [place] [phone] 10/16/2024 [place] [address] Dudley Aguilar MD [facility] DR OBSTETRICS [place] [address] 11/08/2024 10:00 AM EST Hospital Encounter Non-[place] [address] Arrived documented as of this encounter Procedures Procedure Name Priority Date/Time Associated Diagnosis Comments FILM LIBRARY STORAGE ONLY CT HEAD Routine 07/24/2014 12:05 PM EDT documented in this encounter Results * Film Library- Storage only CT Head (07/24/2014 12:05 PM EDT) Anatomical Region Laterality Modality Head Other 07/24/2014 12:0 5 PM EDT Narrative 03/20/2015 12:06 PM EDT This is a Non-reportable exam Procedure Note RINA, UNSIGNED REPORT - 03/20/2015 This is a Non-reportable exam Papa Lutz MD IMG FILM LIBRARY OR DERABLES documented in this encounter Visit Diagnoses Not on filedocumented in this encounter Care Teams Floating Labor Gang Supervisor Relationship Specialty Start Date End Date [place] [address] [place] [address] PCP - General 09/03/12 03/21/19 documented as of this encounter
--- OUTSIDE RECORDS SUMMARY | 2024-09-20 11:17 | XMS_ITS | Encounter Summary ---
[place] [address] Care Team Providers Care Fixture Relamper Name Role Phone Mary Trotter APRN Primary Care Provider +1- [phone] Encounter Details Date Type Department Care Team (Late st Contact Info) Description 08/10/2014 Telephone Cardiology at [address] [address] Issac Collins Jr., MD [address] [place] [address] Social History Tobacco Use Types Packs/Day [...] encounter Miscellaneous Notes * Telephone Encounter - Aura Collins RN - 08/15/2014 11:42 AM EDT Spoke with Glenys pt's sister. Gave her echo and stress results and Dr. Collins's instructions. * Telephone Encounter - Issac Collins Jr., MD - 08/10/2014 5:05 PM EDT Echo- normal heart size and function- no significant valve problems ETT- normal, stage III So dyspnea due to deconditioning and smoking- needs to stop smoking Variable blood pressure due to stress-continue amlodipine as needed Follow up PRN documented in this encounter Plan of Treatment Upcoming Encounters Date Type Department Care Team (Late st Contact Info) Description 09/21/2024 8:15 AM EST Routine Obstetrics [place] [address] Emili Cabrera MD [facility] MATERNAL [place] [address] 09/26/2024 6:00 PM EST Appointment [facility] [place] [address] 10/16/2024 Hospital [place] [address] Dudley Aguilar MD [facility] DR OBSTETRICS [place] [address] 11/08/2024 10:00 AM EST Hospital Encounter Non-Invasive [place] [address] Arrived documented as of this encounter Visit Diagnoses Not on filedocumented in this encounter Care Teams Fixture Relamper Relationship Specialty Start Date End Date Mary Trotter APRN [place] [address] PCP - General 09/03/12 03/21/19 documented as of this encounter
--- OUTSIDE RECORDS SUMMARY | 2024-09-20 11:17 | XMS_ITS | Encounter Summary ---
Author Organization [facility] [place] [address] Care Team Providers Care Ship Washer Name Role Phone Mary Trotter APRN Primary Care Provider +1- [phone] Encounter Details Date Type Department Care Team (Late st Contact Info) Description 05/10/2015 External Results [place] [address] Claudia Benton AUD [facility] [address] Social History Tobacco Use Types Packs/Day Years [...] AM EST Routine Obstetrics [place] [address] Emili Cabrera MD [facility] [place] [address] 09/26/2024 6:00 PM EST Appointment [facility] [place] [address] 10/16/2024 [place] [phone] Dudley Aguilar MD [facility] DR [place] [address] 11/08/2024 10:00 AM EST Hospital Encounter Non-Invasive [place] [address] Arrived documented as of this encounter Procedures Procedure Name Priority Date/Time Associated Diagnosis Comments AUDIOLOGY SCAN Routine 05/09/2015 documented in this encounter Results * Scan Doc: Audiology (05/09/2015) Claudia Benton AUD MEDIA MGR SCAN EXT O RDR/RSLT documented in this encounter Visit Diagnoses Not on filedocumented in this encounter Care Teams Ship Washer Relationship Specialty Start Date End Date Mary [place] [address] [place] [address] PCP - General 09/03/12 03/21/19 documented as of this encounter
--- OUTSIDE RECORDS SUMMARY | 2024-09-20 11:17 | XMS_ITS | Encounter Summary ---
Author Organization [facility] [place] [address] Care Team Providers Care Lump Machine Operator Name Role Phone Mary Trotter ADRIAN Primary Care Provider +1- [phone] Encounter Details Date Type Department Care Team (Late st Contact Info) Description 08/21/2012 Orders Only Hematology [place] [phone] Jennifer Pablo APRN [facility] [place] [address] Nipple discharge (Primary Dx) Social History Tobacco Use Types [...] AM EST Routine Obstetrics [place] [phone] Emili Cabrera MD [facility] MATERNAL AND [place] [address] 09/26/2024 6:00 PM EST Appointment [facility] [place] [address] 10/16/2024 Hospital [place] [address] Dudley Aguilar MD [facility] DR OBSTET[place] [address] 11/08/2024 10:00 AM EST Hospital Encounter Non-[place]vasive [place] [address] Arrived documented as of this encounter Visit Diagnoses Diagnosis Nipple discharge- Primary Other sign and symptom in breast documented in this encounter Care Teams Lump Machine Operator Relationship Specialty Start Date [place] [address] PCP - General 09/03/12 03/21/19 documented as of this encounter
--- OUTSIDE RECORDS SUMMARY | 2024-09-20 11:17 | XMS_ITS | Referral Summary ---
Author Organization [facility] Address [address] [place] [address] Care Team Providers Care Carpenter Mold Name Role Phone None, Provider Primary Care [...] 01/26/2010 Anemia 01/26/2010 Overview (01/26/2010): Iron deficiency Social History Tobacco Use Types Packs/Day Years Used Date Smoking Tobacco: Never Assessed Interpersonal Safety Answer Date Record ed Physically Hurt Never 05/21/2020 Verbally Threaten Not on file 05/21/2020 Comments No Sex and Gender Information Value Date Recorded Sex Assigned at Not on file Legal Sex Female 18:29 EST Gender Identity Female 09/03/2022 13:23 EST Sexual Orientation Not on file Last Filed Vital Signs Vital Sign Reading [...] Body Mass Index 24.89 12/14/2015 0904 EST Functional Status * Are you deaf or do you have serious difficulty hearing? Answer Date of Assessment Author No 09/03/2022 12:02 EST Dee Whitley, RN Plan of Treatment Not on file Insurance [place] Care Teams Carpenter Mold Relationship Specialty Start Date End Date None, Provider PCP - General 09/03/22
--- OUTSIDE RECORDS SUMMARY | 2024-09-20 11:17 | XMS_ITS | Encounter Summary ---
Author Organization [facility] Address [facility] [place] [address] Care Team Providers Care Learning And Development Consultant Name Role Phone Mary Trotter ADRIAN Primary Care Provider +1- [phone] Reason for Visit * Reason Comments Cough Insect Bite Encounter Details Date Type Department Care Team (Late st Contact Info) Description 03/21/2019 6:07 AM EDT - 03/21/2019 12:16 PM EDT [place] [address] Horace Cox MD [facility] DR [place] [address] Reno Arevalo MD [facility] [place] [address] Odynophagia; Insect bite of right forearm, initial encounter; Cough in adult Discharge Disposition: Home Social History Tobacco Use [...] Sign Reading Time Taken Comments Blood Pressure 150/99 03/21/2019 6:59 AM EDT Pulse 89 03/21/2019 6:14 AM EDT Temperature 37.1 ??C (98.8 ??F) 03/21/2019 6:14 AM ED T Respiratory Rate 16 03/21/2019 6:14 AM EDT Oxygen Saturation 96% 03/21/2019 6:14 AM EDT Inhaled Oxygen Concentration - - Weight 67.1 kg (148 lb) 03/21/2019 6:14 AM EDT Height 162.6 cm (5' 4) 03/21/2019 6:14 AM EDT Body Mass Index 25.4 03/21/2019 6:14 AM EDT documented in this encounter Discharge Instructions * Discharge Instructions* Binh Eaton MD - 03/21/2019 6:48 AM EDT You were seen in the emergency department with a cough. I think this cough is probably from a viralsyndrome that you are just now getting over. The sore throat and general feeling unwell all [id number] with this syndrome. The cough can persist for several weeks after a respiratory tract infection, I recommend taking some honey by mouth which some people find helpful. I would also recommend finishing the last 2 days of your Z-Cam. Please keep an eye on your arm. If it is worsening over the next few days please have another provider look at it, you can either come back to the emergency department, see your primary care doctor or go to the urgent care. I also recommend that you start taking your blood pressure medication again. Her blood pressure is high here in the emergency department and over the intermediate accountant, this will increase your risk of thingslike heart attack and stroke. Taking your blood pressure medication and ensuring healthy diet and regular exercise will help keep your blood pressure under control. Some people find that with proper d iet and exercise they no longer need medication to control her blood pressure and as you do not enjoy taking medications, I would recommend this approach. I commend you on your decision to quit smoking, that is probably the best thing you can do for your health. It will also help lower your blood pressure. If anything gets worse before you are able to follow-up with your primary care doctor, which I recommend you do in the next 1-2 weeks, then please come back to the emergency department. documented in this encounter Medications at Time [...] Take 1 tablet by mouth as needed. prazosin (MINIPRESS) 1 mg Capsule Take 1 mg by mouth 3 times daily. 02/13/2022 documented as of this encounter ED Notes * Binh Eaton MD - 03/21/2019 6:15 AM EDT ED Resident Note Aniya Luque is an 33 y.o. female who presents to the ED with: Cough, Sore Throat I saw this patient at: 6:15 AM HPI Aniya Luque is a 33 y.o. female with a history of high blood pressure (not taking her medication because she does not like taking pills), presenting to the emergency department complaining of a cough for about 2 weeks, sore throat for about 2 weeks and a new bug bite to her right forearm. She was seen 2 days ago and started on azithromycin, she noted initially some improvement and now feels that she is no longer improving. She does not feel worse per se, only feels that her symptoms have not improved. Her cough is dry, she has not had any fevers at home, she denies any worsening shortness of breath (always has some baseline shortness of breath), no abdominal pain or urinary symptoms. Review of Systems: Pertinent positives and negatives are included in the history of present illness, otherwise 10 systems are reviewed and negative PMH, PSH, MEDICATIONS and SH were all reviewed in the chart Physical Exam: Temp: [37.1 ??C (98.8 ??F)] Heart Rate: [89] Resp: [16] BP: (152)/(103) SpO2: [96 %] Heart Rate from SpO2: -- Physical Exam Constitutional: She appears well-developed and well-nourished. No distress. HENT: Head: Normocephalic and atraumatic. Right Ear: Tympanic membrane normal. Left Ear: Tympanic membrane normal. Nose: Nose normal. Mouth/Throat: Uvula is midline and mucous membranes are normal. Posterior oropharyngeal erythema (mild) present. Eyes: Conjunctivae and EOM are normal. Neck: Normal range of motion. Neck supple. Cardiovascular: Normal rate and regular rhythm. No murmur heard. Pulmonary/Chest: Effort normal and breath sounds normal. No stridor. No respiratory distress. She has no wheezes. She has no rales. Abdominal: She exhibits no distension. Musculoskeletal: Normal range of motion. She exhibits no edema or deformity. Small area of warmth on anterior forearm, mild tenderness. Lymphadenopathy: She has cervical adenopathy (Right cervical adenopathy). Neurological: She is alert. She exhibits normal muscle tone. Skin: Skin is warm and dry. She is not diaphoretic. Nursing note and vitals reviewed. Labs: I have reviewed the labs and imaging and they are significant for: Labs Reviewed - No data to display Imaging: No orders to display ED Course: ED Course as of Mar 21 0648 Sun Mar 21, 2019 0618 Patient has not been taking her anti-HTN. BP: (!) 152/103 0618 Temp: 37.1 ??C (98.8 ??F) 0618 Heart Rate: 89 0618 Resp: 16 0618 SpO2: 96 % MDM & Assessment/Plan: Assessment: 33 y.o. female with Cough 33-year-old female with history of high blood pressure presenting to the emergency department with persistent cough and new questionable bug bite. Her symptoms are consistent with a viral syndrome, posterior oropharynx is mildly erythematous without exudates. She has some right-sided cervical adenopathy that is somewhat tender. I discussed with her symptomatic control and trying to control her cough with honey. We discussed the natural course of these illnesses and I also recommended she see her primary care doctor or follow back up with us or an urgent care if her symptoms worsen. I noted her to be hypertensive here in the emergency department. She endorses not taking her blood pressure medication because she does not like taking pills. She has been off of it for over a month now. I told her that I think it is important that she control her blood pressure, also recommended diet and exercise as a means to do so if she is unhappy taking medications. Her right anterior forearm has some warmth and very mild erythema. Possibly this is a localized reaction to an insect bite though she is unsure of what bit her. At this point I do not think there is any intervention required and I recommended that she observe the area for the next few days and if it is worsening then she should seek reevaluation. Note was dictated with [employer] software Binh Eaton MD Resident 03/21/19 0657 Associated attestation - Horace Cox MD - 03/21/2019 7:00 AM EDT ED ATTENDING ATTESTATION The patient was seen in conjunction with the resident physician. I have independently performed thekey portions of the history and physical exam. I have personally reviewed nursing notes, vital signs, and diagnostic studies including labs, imaging studies and EKGs. I have discussed the details of the case with the resident and agree with the assessment and plan as described in the resident's note, unless stated otherwise below: Cough, insect bite - no signs of significant underlying infectious or allergic process. Discharge. documented in this encounter Miscellaneous Notes * ED Triage - Za De RN - 03/21/2019 6:12 AM EDT Pt reports not feeling well for the last 2 weeks. Seen a few days ago and started on z-cam. Began to feel better but now feels like her cough and congestion is coming back and she was bit by a bug yesterday and has a swollen hot localized area. Pt states her voice is hoarse from the coughing. documented in this encounter Plan of Treatment Upcoming Encounters Date Type Department Care Team (Late st Contact Info) Description 09/21/2024 8:15 AM EST Routine Obstetrics [place] [address] Emili Cabrera MD [facility] [place] [address] 09/26/2024 6:00 PM EST Appointment [facility] Birthing [place] [phone] 10/16/2024 [place] [address] Dudley Aguilar MD [facility] OBSTETRICS [place] [address] 11/08/2024 10:00 AM EST Hospital Encounter [place] [address] Arrived documented as of this encounter Visit Diagnoses Diagnosis Odynophagia Dysphagia, unspecified Insect bite of right forearm, initial encounter Cough in adult documented in this encounter Care Teams Learning And Development Consultant Relationship Specialty Start Date End Date Mary Trotter APRN [facility] [place] [address] PCP - General 09/03/12 03/21/19 documented as of this encounter
--- OUTSIDE RECORDS SUMMARY | 2024-09-20 11:17 | XMS_ITS | Encounter Summary ---
Author Organization [facility] Address [address] [place] [address] Care Team Providers Care Interlocking Pavement Installer Name Role Phone None, Provider Primary Care Provider Unavailabl e Encounter Details Date Type Department Care Team (Latest Contact Info) Description 09/03/2022 Travel Social History Tobacco Use Types Packs/Day [...] 12:04 EST documented as of this encounter Functional Status * Are you deaf or do you have serious difficulty hearing? Answer Date of Assessment Author No 09/03/2022 12:02 EST Dee Whitley RN documented as of this encounter Plan of Treatment Not on file documented as of this encounter Visit Diagnoses Not on filedocumented in this encounter Additional Health Concerns Infection Onset Date Last Indicated Resolved Time R/O COVID-19 09/03/2022 09/03/2022 09/08/2022 22:1 8 EST documented as of this encounter Care Teams Interlocking Pavement Installer Relationship Specialty Start Date End Date None, Provider PCP - General 09/03/22 documented as of this encounter
--- OUTSIDE RECORDS SUMMARY | 2024-09-20 11:17 | XMS_ITS | Encounter Summary ---
[place] [address] Care Team Providers Care Electrical Machinist Name Role Phone Mary Trotter APRN Primary Care Provider [phone]- [phone] Reason for Visit * Reason Comments Establish Care Non-specific ST christine ges on EKG Encounter Details Date Type Department Care Team (Late st Contact Info) Description 08/05/2014 1:00 PM EDT Office Visit Cardiology at [address] [phone] Issac Collins Jr., MD [address] [place] [address] [phone] SOB (shortness of breath); Hypertension Social History Tobacco Use Types Packs/Day Years [...] Sign Reading Time Taken Comments Blood Pressure 112/80 08/05/2014 1:36 PM EDT left arm standing Pulse 75 08/05/2014 1:35 PM EDT per ekg Temperature - - Respiratory Rate - - Oxygen Saturation - - Inhaled Oxygen Concentration - - Weight 63 kg (139 lb) 08/05/2014 1:35 PM EDT Height 162.6 cm (5' 4) 08/05/2014 1:35 PM EDT Body Mass Index 23.86 08/05/2014 1:35 PM EDT documented in this encounter Progress Notes * Issac Collins Jr., MD - 08/05/2014 2:11 PM EDT Referring PCP: MARY TROTTER APRN Cardiology consultation History: Aniya Luque is a 29 y.o. old female seen at the request of MARY TROTTER APRN forevaluation of atypical symptoms and abnormal EKG. She has a long history of dyspnea and exertional dyspnea which has varied over the years. She has albuterol to use PRN and has recently been using itmore often. She has also developed episodic hypertension over the last 2 months and was placed on labetalol. She found that her BP dipped under 100 at times on labetalol so she has been taking it PRN(she has not used it in the last 2 days). On 07/20 she felt more short of breath and had used her albuterol more. She was tachycardic in her MD office and EKG showed slight ST sagging and possible left atrial enlargement. She was sent to the ER where CXR was ok and EKG unchanged. She was set up for this appointment. She has achy chest pain after coughing or some activities and dyspnea that comes and goes without relation to exertion. She denies palpitations, edema, orthopnea, PND, syncope or presyncope. Allergies Allergen Reactions ??? Morphine Unknown reaction ??? Penicillins Rash ??? Seroquel (Quetiapine) Made head feel loopy. Current Outpatient Prescriptions Medication Sig Dispense Refill ??? diaZEPam (VALIUM) [...] Take 1 tablet by mouth daily. ??? cetirizine (ZYRTEC) 10 mg Tablet Take 10 mg by mouth daily. ??? ibuprofen (ADVIL;MOTRIN) 800 mg Tablet Take 800 mg by mouth every 8 hours as needed. ??? labetalol (NORMODYNE) 100 mg Tablet Take 100 mg by mouth 2 times daily. ??? doxepin (SINEQUAN) 150 mg capsule Take 100 mg by mouth nightly. ??? ondansetron (ZOFRAN-ODT) 4 mg oral disintegrating tablet Take 4 mg by mouth every 6 hours as needed. ??? [DISCONTINUED] ondansetron (ZOFRAN) 4 mg Tablet Take 4 mg by mouth every 6 hours as needed. Patient Active Problem List Diagnosis ??? Anxiety ??? Depression ??? Asthma Rx PRN albuterol Pulmonary workup negative 2007 (in [facility]) ??? Hypertension Onset 2013, variable BP highs of 160-170 systolic, then normal ??? Tachycardia Coronary risk factors: Smoking: yes, current Diabetes:no Hypercholesterolemia:no Hypertension:yes, recent onset Family history of premature disease:unknown father, none on mothers side Cardiac tests: none SH: unemployed, lives with family ROS: intermittent cough, no sputum, recent Flaherty's palsy, variable anxiety, no recent weight gain orloss, otherwise negative except as above Physical Exam: BP 112/80 Pulse 75 Ht 162.6 cm (5' 4) Wt 63.05 kg (139 lb) BMI 23.85 kg/m2 LMP 07/22/2014 General: WD, WN Skin: no rash HEENT: no xanthoma Neck: No JVD, HJR, or carotid abnormalities, thyroid normal Lungs: Clear, slight tenderness left chest Cor: RR, normal S1, S2. Faint S4 PMI not displaced. No murmur or gallop Abd: soft, no L/S/K enlargement or bruits Ext: Pulses preserved, equal bilaterally, no edema, cyanosis or clubbing Musculoskeletal: no muscle tenderness, no joint deformities Neuro: grossly nonfocal Psych: appropriate but anxious EKG: NSR 75, normal intervals, slow R progression likely from lead position, normal ST Lab data: None for review Assessment: 1) EKG with mild tachycardia and minor ST change after albuterol use-all likely due to albuterol. Her symptoms are vague and variable- I will set her up for a stress test to get some objective idea of how bad her dyspnea is and assess her heart rate response to activity 2) HTN- normal today and has not used labetalol for 2 days. Labetalol is a poor drug to use PRN (rebound beta nash effect) so I will switch her to amlodipine 2.5 mg PRN. I will also schedule an echocardiogram to assess for structural heart disease 3) reviewed need to quit smoking 4) chest pain likely musculoskeletal but will do ETT as above Plan: 1) A discussion was held concerning the patient's chief complaints, the presumptive diagnosis(es) and the options for further evaluation and management. Reviewed the assessment above and the recommendations below in detail. 2) medical therapy - stop labetalol, start amlodipine 2.5 mg PRN SBP>160 3) [place] [facility]follow up depends on result documented in this encounter Plan of Treatment Upcoming Encounters Date Type Department Care Team (Late st Contact Info) Description 09/21/2024 8:15 AM EST Routine Obstetrics [place] [phone] Emili Cabrera MD [facility] [place] [address] 09/26/2024 6:00 PM EST Appointment [facility] [place] [address] 10/16/2024 Hospital En[place] [phone] Dudley Aguilar MD [facility] DR OBSTETRICS [place] [address] 11/08/2024 10:00 AM EST Hospital Encounter Non-Invasive Cardiology Lab [facility] [place] [address] Arrived documented as of this encounter Visit Diagnoses Diagnosis SOB (shortness of breath) Shortness of breath Hypertension Unspecified essential hypertension documented in this encounter Care Teams Electrical Machinist Relationship Specialty Start Date End Date Mary Trotter APRN [facility] [address] PCP - General 09/03/12 03/21/19 documented as of this encounter
--- OUTSIDE RECORDS SUMMARY | 2024-09-20 11:17 | XMS_ITS | Encounter Summary ---
Author Organization [facility] [place] [address] Care Team Providers Care Correctional Supervisor Name Role Phone Mary Trotter ADRIAN Primary Care Provider [phone]- [phone] Encounter Details Date Type Department Care Team (Late st Contact Info) Description 05/09/2015 1:45 PM EDT Follow-Up Audiology at [address] [phone] Claudia Benton AUD [facility] [place] [address] Otalgia, bilateral; Ear fullness, bilateral; Encounter for hearing examination Discharge Disposition: Home Social History Tobacco Use [...] as of this encounter Progress Notes * Claudia Benton AUD - 05/09/2015 1:48 PM [place] [address] Aniya Luque, 29 y.o., was seen on 05/09/2015 for an audiologic evaluation in conjunction with Keiko Plata APRN in Otolaryngology. Please refer to the scanned audiogram listed under Scan Doc in Chart Review for findings, impressions and recommendations. It may take up to 24 hours for the audiogram to be scanned. Enclosure: Audi[place] [address] documented in this encounter Plan of Treatment Upcoming Encounters Date Type Department Care Team (Late st Contact Info) Description 09/21/2024 8:15 AM EST Routine Obstetrics [place] [phone] Emili Cabrera MD [facility] [place] [address] 09/26/2024 6:00 PM EST Appointment [facility] [place] [phone] 10/16/2024 [place] [phone] Dudley Aguilar MD [facility] [address] OBSTETRICS [place] [address] 11/08/2024 10:00 AM EST Hospital Encounter Non-[place]vasive [place] [phone] Arrived documented as of this encounter Visit Diagnoses Diagnosis Otalgia, bilateral Ear fullness, bilateral Encounter for hearing examination Other examination of ears and hearing documented in this encounter Care Teams Correctional Supervisor Relationship Specialty Start Date End Date Mary Trotter APRN [facility] [place] [address] PCP - General 09/03/12 03/21/19 documented as of this encounter
--- OUTSIDE RECORDS SUMMARY | 2024-09-20 11:18 | XMS_ITS | Encounter Summary ---
Author Organization [facility] Address [address] [place] [address] Care Team Providers Care Make Up Artist Name Role Phone Brendon Shah MD Primary Care Provider Susie Hinton MD Primary Care Provider [phone] Encounter Details Date Type Department Care Team (Late st Contact Info) Description 01/26/2008 Before PRISM Converted Visit (Maple) [facility] - Maple conversion [address] [place] [address] Katherin Hammer, PROBATE CLERK [address] [place], [place] [id number] Social History Tobacco Use Types Packs/Day Years Used Date Smoking Tobacco: Never Assessed Comments Unknown Sex and Gender Information Value Date Recorded Sex Assigned at Not on file Legal Sex Female 18:29 EST Gender Identity Female 09/03/2022 13:23 EST Sexual Orientation Not on file documented as of this encounter Progress Notes * Katherin Hammer MD - 07/20/2009 9003 EDT [facility] PROGRESS/FOLLOWUP NOTE - 01/26/2008 HANY Kwan comes in here because of her anxiety issues. She is off medication at this point in time. She was being treated by her primary for awhile but was awaiting a psychiatrist. Her primary did not want to treat her anymore. She has an appointment with a psychiatrist and counselor; she has an appointment with counselor tomorrow and the psychiatrist in a few weeks. has a history of being in and out of emergency rooms, in and out of psych units, and inand out of [facility]. She recentlysigned herself away from a psych unit this last weekend and could not really remember what she was being given (except she remembered some Remeron). She tells me that since 2004, she has had mood issues and felt well before then. She has been complaining of nausea as well. She came in [place] the first time in 2005. She was on medication at that time and was suggested to continue with her medication and probably add some Reglan and Protonix to her regimen. She has also been sick for a couple ofweeks with a cough that is severe enough to cause her to have some chest pain. She was sick a monthago where she was treated with a Zithromax pack. This time, she is not being able to bring up any phlegm. She is taking some Tussin for it. She has some promethazine for her nausea, although she could not really show it to me today and she was really unclear as to all the medicines that she had been taking. OBJECTIVE Blood pressure is 100/60 and pulse is 80. Weight is 101. Her throat had a coated tongue with mildly-pink throat. Ears were normal. Lungs were clear. She is tender around her sinuses. ASSESSMENT 1. Mood disorder out of control due to patient not following through with recurrence of illness. 2. Unsure of exact etiology but she has been ill and coughing for the last couple of weeks and probably should be on an antibiotic. PLAN 1. I am going to call the psych unit to see what she was on. If I can get the information, I will give her two or three weeks of medicines to tide her over to the psychiatrist. 2. I have also given a prescription for Zithromax pack, 5 day. 3. I want her to push fluids and do steam. 4. I have asked her to give me permission to get the information as well before she leaves the office. She seemed to be able to understand what I talked to her about and concurred with the plan. Signed by MOON Cardoza 02/02/2008 16:51 MOON Cardoza - MOON Cardoza P - [facility] Job ID: [id number] Document ID: [id number] cc: documented in this encounter Plan of Treatment Not on file documented as of this encounter Visit Diagnoses Not on filedocumented in this encounter Care Teams Make Up Artist Relationship Specialty Start Date End Date Brendon Shah MD [address] [place] [phone] PCP - General 06/03/09 02/13/16 Susie Hinton MD [address] [place] [phone] PCP - General 03/04/09 06/02/09 documented as of this encounter
--- OUTSIDE RECORDS SUMMARY | 2024-09-20 11:18 | XMS_ITS | Encounter Summary ---
Author Organization [facility] Address [address] [place] [address] Care Team Providers Care Data Management Specialist Name Role Phone Brendon Shah MD Primary Care Provider Mary Trotter Primary Care Provider [phone] Encounter Details Date Type Department Care Team (Late st Contact Info) Description 11/28/2015 Historical Results Only [facility] Radiology Results [address] [place], [place] [address] Shahrzad Albarado MD [address] [place] [address]-, [address] [place] [address] Social History Tobacco Use Types Packs/Day Years Used Date Smoking Tobacco: Never Assessed Comments Unknown Sex and Gender Information Value Date Recorded Sex Assigned at Not on file Legal Sex Female 18:29 EST Gender Identity Female 09/03/2022 13:23 EST Sexual Orientation Not on file documented as of this encounter Plan of Treatment Not on file documented as of this encounter Procedures Procedure Name Priority Date/Time Associated Diagnosis Comments US OB FIRST TRIMESTER (LESS THAN 14 WEEKS) TRANSVAGINAL 11/28/2015 10:29 EST documented in this encounter Results * US OB FIRST TRIMESTER (LESS THAN 14 WEEKS) TRANSVAGINAL (11/28/2015 10:29 EST) Anatomical Region Laterality Modality Pelvis Other 11/28/2015 10:2 9 EST Narrative 11/29/2015 9:02 EST ? EXAM: ULTRASOUND/TRANSVAGINAL - OB (LEVEL EX. D/ (1029) ? CLINICAL INFORMATION: ? Z33.1 STATE, INCIDENTAL ? See attached report. ??Report also available in PACS. ? BBL:kad ?Reported By: Darron Ross MD ? CC: ? Transcribed Date/Time: 11/29/2015 (901) ? Data Power Consultant: KRISTEN ? Printed Date/Time: 04/01/2019 (2409) ? PAGE 1 ? Signed Report ? Procedure Note Darron Ross MD - 08/25/2019 EXAM: ULTRASOUND/TRANSVAGINAL - OB (LEVEL EX. D/ (1029) CLINICAL INFORMATION: Z33.1 STATE, INCIDENTAL See attached report. Report also available in PACS. BBL:mary Reported By: Darron Ross MD CC: Transcribed Date/Time: 11/29/2015 (901) Data Power Consultant: KRISTEN Printed Date/Time: 04/01/2019 (8479) PAGE 1 Signed Report us Shahrzad Albarado MD IMG US OB ORDERABLES Final Re sult documented in this encounter Visit Diagnoses Not on filedocumented in this encounter Care Teams Data Management Specialist Relationship Specialty Start Date End Date Brendon Shah MD [address] [place] [phone] PCP - General 06/03/09 02/13/16 Mary Trotter FNP [address] [place] [phone] PCP - General 02/14/16 09/02/22 documented as of this encounter
--- OUTSIDE RECORDS SUMMARY | 2024-09-20 11:18 | XMS_ITS | Encounter Summary ---
Author Organization [facility] Address [address] [place] [address] Care Team Providers Care Crushing Mill Operator Name Role Phone Brendon Shah MD Primary Care Provider Mary Trotter Primary Care Provider [phone] Encounter Details Date Type Department Care Team (Late st Contact Info) Description 10/23/2015 Historical Results Only [facility] Radiology Results [address] [place] [address] Magdi Gonzalez, DO [address] [place] [phone] Social History Tobacco Use Types Packs/Day Years [...] FIRST TRIMESTER (LESS THAN 14 WEEKS) TRANSVAGINAL 10/23/2015 15:39 EST documented in this encounter Results * US OB FIRST TRIMESTER (LESS THAN 14 WEEKS) TRANSVAGINAL (10/23/2015 15:39 EST) Anatomical Region Laterality Modality Pelvis Other 10/23/2015 15:3 9 EST Narrative 10/24/2015 8:43 EST ? EXAM: ULTRASOUND/TRANSVAGINAL - OB (LEVEL EX. D/ (1539) ? CLINICAL INFORMATION: ? (+) ; LLQ PAIN ? See attached report. ??Report also available in PACS. ? BBL:kad ?Reported By: Darron Ross MD ? CC: ? Transcribed Date/Time: 10/24/2015 (0843) ? Education Supervisor: KRISTEN ? Printed Date/Time: 03/31/2019 (1373) ? PAGE 1 ? Signed Report ? Procedure Note Darron Ross MD - 08/25/2019 EXAM: ULTRASOUND/TRANSVAGINAL - OB (LEVEL EX. D/ (1539) CLINICAL INFORMATION: (+) ; LLQ PAIN See attached report. Report also available in PACS. BBL:mary Reported By: Darron Ross MD CC: Transcribed Date/Time: 10/24/2015 (0843) Education Supervisor: KRISTEN Printed Date/Time: 03/31/2019 (1127) PAGE 1 Signed Report us Magid Gonzalez DO IMG US OB ORDERABLES Final Re sult documented in this encounter Visit Diagnoses Not on filedocumented in this encounter Care Teams Crushing Mill Operator Relationship Specialty Start Date End Date Brendon Shah MD [address] [place] [phone] PCP - General 06/03/09 02/13/16 Mary Trotter FNP [address] [place] [phone] PCP - General 02/14/16 09/02/22 documented as of this encounter
--- OUTSIDE RECORDS SUMMARY | 2024-09-20 11:18 | XMS_ITS | Encounter Summary ---
Author Organization [facility] Address [address] [place] [address] Care Team Providers Care Piercing Specialist Name Role Phone Brendon Shah MD Primary Care Provider Encounter Details Date Type Department Care Team (Latest Contact Info) Description 07/19/2015 8:49 EDT - 07/19/2015 23:59 EDT Hospital Encounter [facility] [address] [place] [address] Unknown, Provider, Discharge Disposition: Home or Self Care Social History Tobacco Use Types Packs/Day Years Used Date Smoking Tobacco: Never Assessed Comments Unknown Sex and Gender Information Value Date Recorded Sex Assigned at Not on file Legal Sex Female 18:29 EST Gender Identity Female 09/03/2022 13:23 EST Sexual Orientation Not on file documented as of this encounter Medications at Time of Discharge clonazepam (KLONOPIN) 0.5 mg tablet Take 0.5 mg by mouth 3 times daily. DIPHENHYDRAMINE HCL (BENADRYL ALLERGY ORAL) Take by mouth as needed. ondansetron (ZOFRAN) 4 mg tablet Take 4 mg by mouth as needed for Nausea. documented as of this encounter Discharge Disposition Disposition Code Departure Means Destination Home or Self Assisted documented in this encounter Plan of Treatment Not on file documented as of this encounter Visit Diagnoses Not on filedocumented in this encounter Care Teams Piercing Specialist Relationship Specialty Start Date End Date Brendon Shah MD [address] [place] [address] [address] [place] [phone] PCP - General 06/03/09 02/13/16 documented as of this encounter
--- OUTSIDE RECORDS SUMMARY | 2024-09-20 11:18 | XMS_ITS | Encounter Summary ---
Author Organization [facility] Address [address] [place] [address] Care Team Providers Care Regulatory Coordinator Name Role Phone Mary Trotter EMAIL SPECIALIST Primary Care Provider [phone] None, Provider Primary Care Provider Unavailabl e Encounter Details Date Type Department Care Team (Late st Contact Info) Description 08/05/2019 Results Only Imaging [facility] Radiology Results [address] [place], [place] [phone] Kyle Ch MD [address] [place] [address] Social History Tobacco Use Types Packs/Day Years Used Date Smoking Tobacco: Never Assessed Comments No Sex and Gender Information Value Date Recorded Sex Assigned at Not on file Legal Sex Female 18:29 EST Gender Identity Female 09/03/2022 13:23 EST Sexual Orientation Not on file documented as of this encounter Plan of Treatment Not on file documented as of this encounter Procedures Procedure Name Priority Date/Time Associated Diagnosis Comments XR CHEST 2 VIEWS 08/05/2019 6:02 EDT documented in this encounter Results * XR CHEST 2 VIEWS (08/05/2019 6:02 EDT) Anatomical Region Laterality Modality Other 08/05/2019 6:02 EDT Narrative 08/05/2019 6:02 EDT ? EXAM: RADIOLOGY/CHEST PA ?? LAT ?EX. D/ (0559) ? CLINICAL INFORMATION: ? cough. ? PROCEDURE INFORMATION: ? Exam: XR Chest, 2 Views ? Exam date and time: 08/05/2019 5:38 AM ? Clinical history: 34 years old, female; Cough ? TECHNIQUE: ? Imaging protocol: XR of the chest ? Views: 2 views. ? COMPARISON: ? No relevant prior studies available. ? FINDINGS: ? Lungs: Unremarkable. No consolidation. ? Pleural space: Unremarkable. No evidence of pneumothorax. ? Heart/Mediastinum: Unremarkable. Heart size within normal limits ? for technique. ? Bones/joints: Unremarkable. ? IMPRESSION: ? No acute findings. ? REPORT SIGNED IN OTHER VENDOR SYSTEM 08/05/2019 ?Reported By: Hardeep Lee MD ? CC: ? Transcribed Date/Time: 08/05/2019 (601) ? Hydraulic Spinner: ? Printed Date/Time: 08/05/2019 (601) ? PAGE 1 ? Signed Report ? Procedure Note Hardeep Lee MD - 08/28/2019 EXAM: RADIOLOGY/CHEST PA LAT EX. D/ (0559) CLINICAL INFORMATION: cough. PROCEDURE INFORMATION: Exam: XR Chest, 2 Views Exam date and time: 08/05/2019 5:38 AM Clinical history: 34 years old, female; Cough TECHNIQUE: Imaging protocol: XR of the chest Views: 2 views. COMPARISON: No relevant prior studies available. FINDINGS: Lungs: Unremarkable. No consolidation. Pleural space: Unremarkable. No evidence of pneumothorax. Heart/Mediastinum: Unremarkable. Heart size within normal limits for technique. Bones/joints: Unremarkable. IMPRESSION: No acute findings. REPORT SIGNED IN OTHER VENDOR SYSTEM 08/05/2019 Reported By: Hardeep Lee MD CC: Transcribed Date/Time: 08/05/2019 (601) Hydraulic Spinner: Printed Date/Time: 08/05/2019 (601) PAGE 1 Signed Report us Kyle Ch MD IMG DIAGNOSTIC IMAGING ORDYudi TORRES Final Result documented in this encounter Visit Diagnoses Not on filedocumented in this encounter Additional Health Concerns Infection Onset Date Last Indicated Resolved Time R/O COVID-19 09/03/2022 09/03/2022 09/08/2022 22:1 8 EST documented as of this encounter Care Teams Regulatory Coordinator Relationship Specialty Start Date End Date Mary Trotter FNP [address] [place] [phone] PCP - General 02/14/16 09/02/22 None, Provider PCP - General 09/03/22 documented as of this encounter
--- OUTSIDE RECORDS SUMMARY | 2024-09-20 11:18 | XMS_ITS | Encounter Summary ---
Author Organization [facility] Address [address] [place] [address] Care Team Providers Care Mammography Supervisor Name Role Phone Brendon Shah MD Primary Care Provider Mary Trotter Primary Care Provider [phone] Encounter Details Date Type Department Care Team (Late st Contact Info) Description 07/19/2015 Historical Results Only [facility] Radiology Results [address] [place] [address] Cristobal Sandoval MD Social History Tobacco Use Types Packs/Day Years [...] Name Priority Date/Time Associated Diagnosis Comments US PELVIS TRANSVAGINAL COMPLETE 07/19/2015 12:27 EDT documented in this encounter Results * US PELVIS TRANSVAGINAL (07/19/2015 12:27 EDT) Anatomical Region Laterality Modality Pelvis Other 07/19/2015 12:2 7 EDT Narrative 07/19/2015 12:32 EDT ? EXAM: ULTRASOUND/TRANSVAGINAL - SHAKE TABLE OPERATOR W/ DO EX. D/ (1113) ? CLINICAL INFORMATION: ? PELVIC PAIN ? INDICATION: Worsening lower pelvic pain. ? TECHNIQUE: ?Transvaginal pelvic ultrasound. Color flow Doppler ? imaging was obtained. ? COMPARISON: 01/31/2014. ? FINDINGS: ?The uterus measures 9.5 x 5.4 x 6.1 centimeters. The ? endometrium measures 11.2 mm in thickness. The uterine parenchyma is ? unremarkable. ??Trace free fluid is seen in the cul-de-sac. The right ? ovary measures 3.4 x 2.6 x 3.1 cm. ?The left ovary measures 4.0 x ? 2.9 x 2.8 cm. ? there are small right ovarian follicles, the ? largest of which measures 14 mm in diameter. Also, there is a 2.4 cm ? left ovarian cyst with internal septa. ? IMPRESSION: ? 1.) 2.4 cm left ovarian cyst with internal septa. This could be ? reassessed in 6 weeks to ensure resolution. ? REPORT SIGNED IN OTHER VENDOR SYSTEM 07/19/2015 ?Reported By: Bandar Farah MD ? CC: ? Transcribed Date/Time: 07/19/2015 (1232) ? Hand Tube Bender: ? Printed Date/Time: 03/30/2019 (145) ? PAGE 1 ? Signed Report ? Procedure Note Bandar Farah MD - 08/24/2019 EXAM: ULTRASOUND/TRANSVAGINAL - SHAKE TABLE OPERATOR W/ DO EX. D/ (1113) CLINICAL INFORMATION: PELVIC PAIN INDICATION: Worsening lower pelvic pain. TECHNIQUE: Transvaginal pelvic ultrasound. Color flow Doppler imaging was obtained. COMPARISON: 01/31/2014. FINDINGS: The uterus measures 9.5 x 5.4 x 6.1 centimeters. The endometrium measures 11.2 mm in thickness. The uterine parenchymais unremarkable. Trace free fluid is seen in the cul-de-sac. Theright ovary measures 3.4 x 2.6 x 3.1 cm. The left ovary measures 4.0 x 2.9 x 2.8 cm. there are small right ovarian follicles, the largest of which measures 14 mm in diameter. Also, there is a 2.4cm left ovarian cyst with internal septa. IMPRESSION: 1.) 2.4 cm left ovarian cyst with internal septa. This could be reassessed in 6 weeks to ensure resolution. REPORT SIGNED IN OTHER VENDOR SYSTEM 07/19/2015 Reported By: Bandar Farah MD CC: Transcribed Date/Time: 07/19/2015 (1232) Hand Tube Bender: Printed Date/Time: 03/30/2019 (6680) PAGE 1 Signed Report us Cristobal Sandoval MD [facility] OB ORDERABLES Final Resu lt documented in this encounter Visit Diagnoses Not on filedocumented in this encounter Care Teams Mammography Supervisor Relationship Specialty Start Date End Date Brendon Shha MD [address] [place] [phone] PCP - General 06/03/09 02/13/16 Mary Trotter FNP [address] [place] [phone] PCP - General 02/14/16 09/02/22 documented as of this encounter
--- OUTSIDE RECORDS SUMMARY | 2024-09-20 11:18 | XMS_ITS | Encounter Summary ---
Author Organization [facility] Address [address] [place] [address] Care Team Providers Care Yarn Packer Name Role Phone Mary Trotter Primary Care Provider [phone] Encounter Details Date Type Department Care Team (Latest Contact Info) Description 04/03/2016 8:37 EDT - 04/03/2016 23:59 EDT Hospital Encounter [facility] [address] [place] [address] Unknown, Provider, MD Discharge Disposition: Home or Self Care Social History Tobacco Use Types Packs/Day Years Used Date Smoking Tobacco: Never Assessed Comments Yes Sex and Gender Information Value [...] Code Departure Means Destination Home or Self Jail documented in this encounter Plan of Treatment Not on file documented as of this encounter Visit Diagnoses Not on filedocumented in this encounter Care Teams Yarn Packer Relationship Specialty Start Date End Date Mary Trotter FNP [address] [place] [phone] PCP - General 02/14/16 09/02/22 documented as of this encounter
--- OUTSIDE RECORDS SUMMARY | 2024-09-20 11:18 | XMS_ITS | Encounter Summary ---
Author Organization [facility] Address [address] [place] [address] Care Team Providers Care Youth Program Director Name Role Phone Brendon Shah MD Primary Care Provider Mary Trotter Primary Care Provider [phone] Encounter Details Date Type Department Care Team (Late st Contact Info) Description 03/21/[address] [facility] [place] [facility] [place] [address] [address] Dinh Torrez MD [address] [place] [phone] Social History Tobacco Use Types Packs/Day Years [...] Priority Date/Time Associated Diagnosis Comments PAP TEST Routine 03/21/2010 documented in this encounter Results * PAP TEST (03/21/2010) 03/21/2010 03/22/2010 11: 24 EDT Narrative [facility] - 03/27/2010 15:48 EDT ----- ------- Name: ANIYA LUQUE ? : [birth year] ?Age/Sex: 34/F ?Unit#: [id number] ? Loc: AGO ? Status: REG POV ?? Reg Date: 03/21/10 ? Pt.Phone Number: ? ----- ------- Specimen: [id number] ?STATUS: SOUT ?Spec Date:03/21/10 ? Physician Copies: ?Dinh Torrez Tissues: ? Cervical/Endo Pap ?Vika Márquez MD ? CPT: 14374 ?? Units: ??1 ----- ------- ? CYTOLOGY DIAGNOSIS SPECIMEN ADEQUACY: ?Satisfactory for evaluation. Transformation zone component present. GENERAL CATEGORIZATION: ?Negative for Intraepithelial Lesion or Malignancy DESCRIPTIVE DIAGNOSIS: ? Negative for Intraepithelial Lesion or Malignancy. RECOMMENDATIONS/COMMENTS: ?None. ----- ------- ORDER QUERIES: LMP: ? - DEPO ? N Post ? N ??PREVIOUS ATYPICAL: Y BCP/HRT? Y Rad Rx? N IUD? N ??PAP PLUS HPV?REFLEX TO HR-HPV IF ASCUS ?? REFLEX TO HPV 16/18 IF HPV POS/PAP NEG ?? HPV REGARDLESS?RFLX HPV IF LSIL ?? IF ASCUS DO HPV? Signed Roverto Castro CT(ASCP) 03/27/10 By the signature above, the attending physician certifies that he/she has personally conducted a gross and/or microscopic examination of the described specimens and rendered or confirmed the above diagnosis. Test Performed by [facility], [address] [address] Laborer Syrup Machine: Birdie Sexton MD PHD ----- ------- us Dnih Torrez MD PATHOLOGY ORDERABLES Final Result [facility] documented in this encounter Visit Diagnoses Not on filedocumented in this encounter Care Teams Youth Program Director Relationship Specialty Start Date End Date Brendon Shah MD [address] [place] [phone] PCP - General 06/03/09 02/13/16 Mary Trotter FNP [address] [place] [phone] PCP - General 02/14/16 09/02/22 documented as of this encounter
--- OUTSIDE RECORDS SUMMARY | 2024-09-20 11:18 | XMS_ITS | Encounter Summary ---
Author Organization [facility] Address [address] [place] [address] Care Team Providers Care Welt Pocket Machine Operator Name Role Phone Mary Trotter RETAIL ACCOUNT SPECIALIST Primary Care Provider [phone]- [phone] Encounter Details Date Type Department Care Team (Late st Contact Info) Description 02/16/2016 Results Only Imaging [facility] [phone] Vika Márquez MD [address] [place] [address], [address] [place] [address] Social History Tobacco Use Types [...] Procedure Name Priority Date/Time Associated Diagnosis Comments HALF-WAY DETAILED 02/15/2016 12:22 EDT documented in this encounter Results * HALF-WAY DETAILED (02/15/2016 12:22 EDT) Anatomical Region Laterality Modality Other 02/15/2016 12:2 2 EDT 02/15/2016 12:49 EDT Narrative 02/15/2016 12:49 EDT Indication Chronic hypertension, medication -Doxepin. History ======= General History Height 163 cm Height (ft) ?5 ft Height (in) ?4 in Previous Outcomes ?4 Para ?? 2 Children born (T) ??2 Children born (P) ??0 Living children (L) ?2 Abortions (A) ??1 Maternal Assessment Height 163 cm Height (ft) ?5 ft Height (in) ?4 in Physical Exam Initial weight 66 kg Initial weight (lb) ?146 lb Initial BMI ?25.06 kg/m? Screening Tests Wants to know gender: ??yes Number of fetuses: 1. Dating ======= Method of dating: ??based on the LMP LMP on: ?09/30/2015 GA by LMP ??19 w + 5 d NAZIA by LMP : ? 07/06/2016 Stated Dating on: ?11/28/2015 GA at stated dating date 8 w + 6 d Stated dating by: ?outside ultrasound GA by stated dating ??20 w + 1 d NAZIA by stated dating: ?07/03/2016 Ultrasound examination on: 02/15/2016 GA by U/S based upon: ??AC, BPD, Femur, HC GA by U/S ??20 w + 3 d NAZIA by U/S: ?07/01/2016 Assigned: ??Dating performed on 02/15/2016 Based on the LMP Assigned GA ?19 w + 5 d Assigned NAZIA: ??07/06/2016 General Evaluation Cardiac activity: present. FHR 149 bpm. movements: visualized. Presentation: cephalic. Placenta: posterior. Umbilical cord: Cord vessels: 3 vessel cord. Cord insertion: placental insertion: normal. Amniotic fluid: Amount of AF: normal. Biometry Biometry BPD ?48.5 mm 85% 20w 5d Hadlock OFD ?63.0 mm 90% 20w 1d Nicolaides HC 179.8 mm ?74% 20w 3d Hadlock AC 151.1 mm ?66% 20w 2d Hadlock Femur ??33.3 mm 68% 20w 3d Hadlock Cerebellum tr ??21.6 mm 87% 20w 4d Nicolaides CM 4.9 mm ??51% Nicolaides Nuchal fold ?4.36 mm Humerus ?30.5 mm 64% 20w 1d Boone EFW ?351 g Calculated by: Hadlock ([id number]) EFW (lb) ?? 0 lb EFW (oz) ?? 12 oz Cephalic index 0.77 ?29% Chitty HC / AC ?1.19 FL / BPD ?? 0.69 ?43% Hadlock FL / HC ?0.19 ?52% Hadlock FL / AC ?0.22 ?63% Hadlock FHR ?149 bpm Head / Face / Neck Priming Powder Premix Blender 6.0 mm Extremities / Bony Struc Radius 25.2 mm 37% 19w 3d Boone Ulna ?? 28.5 mm 55% 19w 6d Boone Tibia ??28.4 mm 71% 20w 3d Boone Fibula 29.0 mm 63% 20w 2d Boone Foot ?? 31.9 mm 44% 19w 4d Brand Anatomy Head / Brain Head: ??normal Head: ??Shape and size Brain: normal Brain: Cerebellum, choroid plexus, cisterna magna, lateral cerebral ventricles, midline falx and cavum septi pellucidi Face / Neck / Spine Face: ??normal Profile: ?? suboptimally visualized Orbits: ?normal Nose: ??normal Lips: ??normal Maxilla: ?? normal Mandible: ??normal Neck: ??normal Neck: ??No neck masses seen Spine: normal Spine: Cervical, thoracic, lumbar and sacral spine and overlying soft tissue Thorax / Heart / Great Vessels Thorax: ?normal Thorax: ?No thoracic abnormalities detected Situs: normal 4-chamber view: ?normal LVOT: ??normal RVOT: ??normal 3-vessel - trachea view: ?? normal 3-vessel view: normal Aortic arch view: ??normal Abdomen Abdom. wall: ?? normal Abdom. wall: ?? Integrity of abdominal wall and cord insertion GI tract: ??normal GI tract: ??Normal echogenicity Stomach: ?? normal Stomach: ?? Presence, size and situs Urinary Tract / Genitals Rt kidney: normal Lt kidney: normal Bladder: ?? normal Bladder: ?? Size and location Gender: ?female Wants to know gender: ??yes Genitals: ??normal Genitals: ??Normal appearing genitalia Extremities / Bony Structures Upper extrem.: normal Upper extrem.: Normal architecture and position of long bones and hands Lower extrem.: normal Lower extrem.: Normal architecture and position of long bones and feet Skeleton: ??normal Skeleton: ??No evidence of skeletal abnormalities Additional Cardiac Views Superior vena cava: Appears normal. Inferior vena cava: Appears normal. Aneuploidy Screening Age (at exam date) 30 yrs Display risk: ??Risk at time of screening Background risk at time of screening ?? 621 Background risk at term ?736 Short humerus: no Short femur: ?? no Nuchal fold: ?? normal Pyelectasis: ?? no Echogenic focus: ?? no Hyperechogenic bowel: ??no Major defects: no Include: ?? ultrasound findings Adjusted risk at time of screening 5,013 Adjusted risk at term ??5,940 Maternal Structures Uterus / Cervix Uterus: ?appears normal Cervix: ?appears normal Ovaries / Tubes / Adnexa Rt ovary: ??Ovary not visualized Lt ovary: ??appears normal Lt ovary D1 ?2.6 cm Lt ovary D2 ?2.6 cm Lt ovary D3 ?1.3 cm Lt ovary mean ??2.2 cm Lt ovary Vol. ??4.6 cm? Method ======== Transabdominal ultrasound examination, Voluson E10. Sufficient. Impression 19545 Obstetrical ultrasound with and maternal evaluation, including detailed anatomic examination This is a reyes gestation. Biometry is consistent with menstrual dating. A right sided choroid plexus cyst is noted. Otherwise anatomy appears normal as noted above; however, ultrasound cannot detect all anomalies. As per the [facility] guidelines, the following were evaluated and were normal: the cerebellum (including lobes and vermis), facial profile, the chest (including examination for masses, effusion, integrity of both sides of the diaphragm and lung parenchyma), abdomen for ascites, 12-long bones with normal architecture/position of limbs, hands and feet, placental insertion site of the umbilical cord and placenta for masses. Her risk for trisomy 18 based on an isolated CP cyst is 1:454 from her age related risk of 1:2385. The amniotic fluid volume is normal. There is trunk and extremity movement noted. Follow-up Discussed findings with the patient. Patient declines further testing. Procedure Note Kellie Turner MD - 02/15/2016 Indication Chronic hypertension, medication -Doxepin. History ======= General History Height 163 cm Height (ft) 5 ft Height (in) 4 in Previous Outcomes 4 Para 2 Children born (T) 2 Children born (P) 0 Living children (L) 2 Abortions (A) 1 Maternal Assessment Height 163 cm Height (ft) 5 ft Height (in) 4 in Physical Exam Initial weight 66 kg Initial weight (lb) 146 lb Initial BMI 25.06 kg/m? Screening Tests Wants to know gender: yes Number of fetuses: 1. Dating ======= Method of dating: based on the LMP LMP on: 09/30/2015 GA by LMP 19 w + 5 d NAZIA by LMP : 07/06/2016 Stated Dating on: 11/28/2015 GA at stated dating date 8 w + 6 d Stated dating by: outside ultrasound GA by stated dating 20 w + 1 d NAZIA by stated datin07/03/2016 Ultrasound examination on: 02/15/2016 GA by U/S based upon: AC, BPD, Femur, HC GA by U/S 20 w + 3 d NAZIA by U/S: 07/01/2016 Assigned: Dating performed on 02/15/2016 Based on the LMP Assigned GA 19 w + 5 d Assigned NAZIA: 07/06/2016 General Evaluation Cardiac activity: present. FHR 149 bpm. movements: visualized. Presentation: cephalic. Placenta: posterior. Umbilical cord: Cord vessels: 3 vessel cord. Cord insertion: placental insertion: normal. Amniotic fluid: Amount of AF: normal. Biometry Biometry BPD 48.5 mm 85% 20w 5d Hadlock OFD 63.0 mm 90% 20w 1d Nicolaides HC 179.8 mm 74% 20w 3d Hadlock AC 151.1 mm 66% 20w 2d Hadlock Femur 33.3 mm 68% 20w 3d Hadlock Cerebellum tr 21.6 mm 87% 20w 4d Nicolaides CM 4.9 mm 51% Nicolaides Nuchal fold 4.36 mm Humerus 30.5 mm 64% 20w 1d Boone EFW 351 g Calculated by: Hadlock ([id number]) EFW (lb) 0 lb EFW (oz) 12 oz Cephalic index 0.77 29% Chitty HC / AC 1.19 FL / BPD 0.69 43% Hadlock FL / HC 0.19 52% Hadlock FL / AC 0.22 63% Hadlock FHR 149 bpm Head / Face / Neck Priming Powder Premix Blender 6.0 mm Extremities / Bony Struc Radius 25.2 mm 37% 19w 3d Boone Ulna 28.5 mm 55% 19w 6d Boone Tibia 28.4 mm 71% 20w 3d Boone Fibula 29.0 mm 63% 20w 2d Boone Foot 31.9 mm 44% 19w 4d Brand Anatomy Head / Brain Head: normal Head: Shape and size Brain: normal Brain: Cerebellum, choroid plexus, cisterna magna, lateral cerebral ventricles, midline falx and cavum septi pellucidi Face / Neck / Spine Face: normal Profile: suboptimally visualized Orbits: normal Nose: normal Lips: normal Maxilla: normal Mandible: normal Neck: normal Neck: No neck masses seen Spine: normal Spine: Cervical, thoracic, lumbar and sacral spine and overlying soft tissue Thorax / Heart / Great Vessels Thorax: normal Thorax: No thoracic abnormalities detected Situs: normal 4-chamber view: normal LVOT: normal RVOT: normal 3-vessel - trachea view: normal 3-vessel view: normal Aortic arch view: normal Abdomen Abdom. wall: normal Abdom. wall: Integrity of abdominal wall and cord insertion GI tract: normal GI tract: Normal echogenicity Stomach: normal Stomach: Presence, size and situs Urinary Tract / Genitals Rt kidney: normal Lt kidney: normal Bladder: normal Bladder: Size and location Gender: female Wants to know gender: yes Genitals: normal Genitals: Normal appearing genitalia Extremities / Bony Structures Upper extrem.: normal Upper extrem.: Normal architecture and position of long bones and hands Lower extrem.: normal Lower extrem.: Normal architecture and position of long bones and feet Skeleton: normal Skeleton: No evidence of skeletal abnormalities Additional Cardiac Views Superior vena cava: Appears normal. Inferior vena cava: Appears normal. Aneuploidy Screening Age (at exam date) 30 yrs Display risk: Risk at time of screening Background risk at time of screening 621 Background risk at term 736 Short humerus: no Short femur: no Nuchal fold: normal Pyelectasis: no Echogenic focus: no Hyperechogenic bowel: no Major defects: no Include: ultrasound findings Adjusted risk at time of screening 5,013 Adjusted risk at term 5,940 Maternal Structures Uterus / Cervix Uterus: appears normal Cervix: appears normal Ovaries / Tubes / Adnexa Rt ovary: Ovary not visualized Lt ovary: appears normal Lt ovary D1 2.6 cm Lt ovary D2 2.6 cm Lt ovary D3 1.3 cm Lt ovary mean 2.2 cm Lt ovary Vol. 4.6 cm? Method ======== Transabdominal ultrasound examination, Voluson E10. Sufficient. Impression 26319 Obstetrical ultrasound with and maternal evaluation, including detailed anatomic examination This is a reyes gestation. Biometry is consistent with menstrual dating. A right sided choroid plexus cyst is noted. Otherwise anatomy appears normal as noted above; however, ultrasound cannot detect all anomalies. As per the [facility] guidelines, the following were evaluated and were normal: the cerebellum (including lobes and vermis), facial profile, the chest (including examination for masses, effusion, integrity of both sides of the diaphragm and lung parenchyma), abdomen for ascites, 12-long bones with normal architecture/position of limbs, hands and feet, placental insertion site of the umbilical cord and placenta for masses. Her risk for trisomy 18 based on an isolated CP cyst is 1:454 from her age related risk of 1:2385. The amniotic fluid volume is normal. There is trunk and extremity movement noted. Follow-up Discussed findings with the patient. Patient declines further testing. us Vika Márquez MD IMG US HALF-WAY ORDERABLES Final Res ult documented in this encounter Visit Diagnoses Not on filedocumented in this encounter Care Teams Welt Pocket Machine Operator Relationship Specialty Start Date End Date Mary Trotter FNP [address] [place] [phone] PCP - General 02/14/16 09/02/22 documented as of this encounter
--- OUTSIDE RECORDS SUMMARY | 2024-09-20 11:18 | XMS_ITS | Encounter Summary ---
Author Organization [facility] Address [address] [place] [address] Care Team Providers Care Apparel Manufacture Instructor Name Role Phone Brendon Shah MD Primary Care Provider Mary Trotter Primary Care Provider [phone] [phone] Encounter Details Date Type Department Care Team (Late st Contact Info) Description 09/26/2009 Historical Results Only [facility] - Main [place] [address] [place] [phone] Vika Márquez MD [address] [place] [address], [address] [place] [phone] Social History Tobacco Use Types [...] Priority Date/Time Associated Diagnosis Comments SURGICAL PATHOLOGY Routine 09/26/2009 documented in this encounter Results * SURGICAL PATHOLOGY (09/26/2009) 09/26/2009 09/26/2009 15: 35 EST Narrative [facility] - 09/28/2009 14:41 EST PREOP ASCUS PAP, HPV POS Procedure: COLPOSCOPY Tissue Removed CX BX AT 12 O'CLOCK LMP: Prev.Abn Pap: 09/12/2009 ----- ------- Name: ANIYA LUQUE ? : [birth year] ?Age/Sex: 34/F ?Unit#: [id number] ? Loc: AGO ? Status: REG POV ?? Reg Date: 09/26/09 ? Pt.Phone Number: ? ----- ------- Specimen: [id number] ? STATUS: SOUT ?Spec Date:09/26/09 ? Physician Copies: ?Vika Márquez MD ? Tissues: A ?? Female Reproductive System (CERVIX) ?Brendon Shah CPT: 63991 ?? Units: ??1 ?FINAL DIAGNOSIS ? Cervix, 12 o'clock, biopsy; ? - ??Inflammatory atypia no definite dysplasia. ? GROSS DESCRIPTION ? Received in formalin and labeled cervical biopsy is a mucosal tissue fragment ? 0.1 cm in greatest dimensions, e.s. ??BT ?MICROSCOPIC DESCRIPTION ? The small biopsy fragment is sectioned and over a dozen levels. ??Squamous ? mucosa with atypia but no definite dysplasia is observed and there is quite a ? bit of inflammation. ??The accompanying Pap smears [id number] show definite ? koilocytes suggestive of low-grade dysplasia but changes of dysplasia are not ? definitely observed on the biopsy. ?? PREOP DX/CLINICAL HISTORY ?ASCUS PAP, HPV POSITIVE Signed ____(signature on file)____ Hussein Jean M.D. 09/28/09 ?? By the signature above, the attending physician certifies that he/she has personally conducted a gross and/or microscopic examination of the described specimens and rendered or confirmed the above diagnosis. Test Performed by [facility], [address] [place], [place] [id number] Molecular Spectroscopist: Birdie Sexton MD PHD ----- ------- us Vika Márquez MD PATHOLOGY ORDERABLES Final Resu lt [facility] documented in this encounter Visit Diagnoses Not on filedocumented in this encounter Care Teams Apparel Manufacture Instructor Relationship Specialty Start Date End Date Brendon Shah MD [address] [place] [phone] PCP - General 06/03/09 02/13/16 Mary Trotter FNP [address] [place] [phone] PCP - General 02/14/16 09/02/22 documented as of this encounter
--- OUTSIDE RECORDS SUMMARY | 2024-09-20 11:18 | XMS_ITS | Encounter Summary ---
Author Organization [facility] Address [address] [place] [address] Care Team Providers Care Room Attendants Name Role Phone Brendon Shah MD Primary Care Provider Mary Trotter Primary Care Provider [phone] Encounter Details Date Type Department Care Team (Late st Contact Info) Description 11/26/2010 Historical Results Only [facility] - Main [place] [address] [place] [phone] Vika Márquez MD [address] [place] [address], [address] [place] [address] Social History Tobacco Use Types [...] Date/Time Associated Diagnosis Comments SURGICAL PATHOLOGY Routine 11/26/2010 documented in this encounter Results * SURGICAL PATHOLOGY (11/26/2010) 11/26/2010 11/26/2010 11: 46 EST Narrative [facility] - 11/27/2010 10:52 EST PREOP ASCUS, HPV POS PAP Procedure: COLPOSCOPY Tissue Removed 1. CX BX 12 2. ECC LMP: Prev.Abn Pap: 11/06/10 ----- ------- Name: ANIYA LUQUE ? : [birth year] ?Age/Sex: 34/F ?Unit#: [id number] ? Loc: AGO ? Status: REG POV ?? Reg Date: 11/26/10 ? Pt.Phone Number: ? ----- ------- Specimen: [id number] ?STATUS: SOUT ?Spec Date:11/26/10 ? Physician Copies: ?Vika Márquez MD ? Tissues: A ?? Female Reproductive System (CERVIX @ 12 O'CLOCK) ? Susie Hinton ? B ?? Female Reproductive System (ENDOCERVIX) ? CPT: 51035 ?? Units: ??2 ?FINAL DIAGNOSIS ? A. ??Cervix, biopsy; ? - ?? Chronic inflammation. ??No evidence of dysplasia. ? B. ??Endocervix, curettage; ? - ?? No material available for microscopic evaluation. ? GROSS DESCRIPTION ? A. ??Received in formalin and labeled cervical biopsy are mucosal tissue ? fragments 0.2 cm in greatest dimensions, e.s. ? B. ??Received in formalin and labeled ECC are scanty mucosal tissue fragments ? aggregating less than 0.01 cm, e.s. ? Note: ??These fragments may not be sufficientv for embedding and microscopic ?exam. ??BT ?? PREOP DX/CLINICAL HISTORY ?ASCUS, HPV POS. PAP. Signed ____(signature on file)____ Hussein Jean M.D. 11/27/10 ?? By the signature above, the attending physician certifies that he/she has personally conducted a gross and/or microscopic examination of the described specimens and rendered or confirmed the above diagnosis. Test Performed by [facility], [address] [place] [address] Payroll Technician: Birdie Sexton MD PHD ----- ------- us Vika Márquez MD PATHOLOGY ORDERABLES Final Resu lt [facility] documented in this encounter Visit Diagnoses Not on filedocumented in this encounter Care Teams Room Attendants Relationship Specialty Start Date End Date Brendon Shah MD [address] [place] [phone] PCP - General 06/03/09 02/13/16 Mary Trotter FNP [address] [place] [phone] PCP - General 02/14/16 09/02/22 documented as of this encounter
--- OUTSIDE RECORDS SUMMARY | 2024-09-20 11:18 | XMS_ITS | Encounter Summary ---
Author Organization [facility] Address [address] [place] [address] Care Team Providers Care Textile Broker Name Role Phone Brendon Shah MD Primary Care Provider Encounter Details Date Type Department Care Team (Latest Contact Info) Description 10/23/2015 9:37 EST - 10/23/2015 23:59 EST Hospital Encounter [facility] [address] [place] [address] Unknown, Provider, Discharge Disposition: Home or Self [...] Code Departure Means Destination Home or Self Snf documented in this encounter Plan of Treatment Not on file documented as of this encounter Visit Diagnoses Not on filedocumented in this encounter Care Teams Textile Broker Relationship Specialty Start Date End Date Brendon Shah MD [address] [place] [address] [address] [place] [phone] PCP - General 06/03/09 02/13/16 documented as of this encounter
--- OUTSIDE RECORDS SUMMARY | 2024-09-20 11:18 | XMS_ITS | Encounter Summary ---
Author Organization [facility] Address [address] [place] [address] Care Team Providers Care Light Rail Operator Name Role Phone Mary Trotter SIGNAL FITTER Primary Care Provider [phone]- [phone] Encounter Details Date Type Department Care Team (Late st Contact Info) Description 04/03/2016 Historical Results Only [facility] Radiology Results [address] [place] [address] Shahrzad Albarado MD [address] [facility], [address] [place] [address] Social History Tobacco Use Types [...] Priority Date/Time Associated Diagnosis Comments US OB FOLLOWUP 04/03/2016 8:53 EDT documented in this encounter Results * US OB FOLLOWUP (04/03/2016 8:53 EDT) Anatomical Region Laterality Modality Pelvis Other 04/03/2016 8:53 EDT Narrative 04/04/2016 10:36 EDT ? EXAM: ULTRASOUND/OB LEVEL 2 FOLLOW UP ? EX. D/ (0853) ? CLINICAL INFORMATION: ? CHECK GROWTH ? I10 CHRONIC HYPERTENSION ? 026.849 UTERINE SIZE-DATE DISCREPANCY ? See attached report. ??Report also available in PACS. ? BBL:kad ?Reported By: Darron Ross MD ? CC: ? Transcribed Date/Time: 04/04/2016 (1036) ? Hosiery Mater: KRISTEN ? Printed Date/Time: 04/02/2019 (5153) ? PAGE 1 ? Signed Report ? Procedure Note Darron Ross MD - 08/25/2019 EXAM: ULTRASOUND/OB LEVEL 2 FOLLOW UP EX. D/ (0853) CLINICAL INFORMATION: CHECK GROWTH I10 CHRONIC HYPERTENSION 026.849 UTERINE SIZE-DATE DISCREPANCY See attached report. Report also available in PACS. BBL:mary Reported By: Darron Ross MD CC: Transcribed Date/Time: 04/04/2016 (1036) Hosiery Mater: KRISTEN Printed Date/Time: 04/02/2019 (8771) PAGE 1 Signed Report Shahrzad Albarado MD IMG OB ORDERABLES Final Re sult documented in this encounter Visit Diagnoses Not on filedocumented in this encounter Care Teams Light Rail Operator Relationship Specialty Start Date End Date Mary Trotter FNP [address] [place] [phone] PCP - General 02/14/16 09/02/22 documented as of this encounter
--- OUTSIDE RECORDS SUMMARY | 2024-09-20 11:18 | XMS_ITS | Encounter Summary ---
Author Organization [facility] Address [address] [place] [address] Care Team Providers Care Prototype Assembler Electronics Name Role Phone Brendon Shah MD Primary Care Provider Mary Trotter Primary Care Provider +[phone] Encounter Details Date Type Department Care Team (Late st Contact Info) Description 02/21/2012 Historical Results Only [facility] - Main [place] [address] [place] [phone] Vika Márquez MD [address] [place] [address], [address] [place] [address] Social History Tobacco Use Types [...] Date/Time Associated Diagnosis Comments SURGICAL PATHOLOGY Routine 02/21/2012 documented in this encounter Results * SURGICAL PATHOLOGY (02/21/2012) 02/21/2012 02/21/2012 14: [address] [facility] - 02/24/2012 14:30 EDT ----- ------- Name: ANIYA LUQUE ? : [birth year] ?Age/Sex: 34/F ?Unit#: [id number] ? Loc: SDS ? Status: DEP SDC ?? Reg Date: 02/21/12 ? Pt.Phone Number: ? ----- ------- Specimen: [id number] ? STATUS: SOUT ?Spec Date:02/21/12 ? Physician Copies: ?Vika Márquez MD ? Tissues: A ?? Female Reproductive System (ENDOMETRIUM) ? Susie Hinton ? CPT: 28077 ?? Units: ??1 ?FINAL DIAGNOSIS ? Endometrium, curettage; ? -Inactive endometrium. ?One fragment of benign squamous mucosa. ? GROSS DESCRIPTION ? Received in formalin and designated endometrial currettings is a 0.2 cc ? volume of pink-finley fibromucosal tissue fragments and fragments of yellow- brown ? hemorrhagic blood. ??The specimen is entirely submitted. BT ?? PREOP DX/CLINICAL HISTORY ?Irregular bleeding. Signed ____(signature on file)____ Hussein Jean M.D. 02/24/12 ?? By the signature above, the attending physician certifies that he/she has personally conducted a gross and/or microscopic examination of the described specimens and rendered or confirmed the above diagnosis. Test Performed by [facility], [address] [place] [id number] Dehydration Plant Operator: Birdie Sexton MD PHD ----- ------- us Vika Márquez MD PATHOLOGY ORDERABLES Final Resu lt [facility] documented in this encounter Visit Diagnoses Not on filedocumented in this encounter Care Teams Prototype Assembler Electronics Relationship Specialty Start Date End Date Brendon Shah MD [address] [place] [phone] PCP - General 06/03/09 02/13/16 Mary Trotter FNP [address] [place] [phone] PCP - General 02/14/16 09/02/22 documented as of this encounter
--- OUTSIDE RECORDS SUMMARY | 2024-09-20 11:18 | XMS_ITS | Encounter Summary ---
Author Organization [facility] Address [address] [place] [address] Care Team Providers Care Accounts Receivable Administrator Name Role Phone Mary Trotter TUNNEL ELASTIC OPERATOR CHAINSTITCH Primary Care Provider [phone] [phone] Encounter Details Date Type Department Care Team (Late st Contact Info) Description 02/29/2016 Results Only Imaging [facility] [phone] Vika Márquez MD [address] [place] [address], [address] [place] [address] Social History Tobacco Use Types [...] Procedure Name Priority Date/Time Associated Diagnosis Comments [facility] FOLLOW-UP 02/29/2016 11:09 EDT documented in this encounter Results * [facility] FOLLOW-UP (02/29/2016 11:09 EDT) Anatomical Region Laterality Modality Other 02/29/2016 11:0 9 EDT 02/29/2016 11:27 EDT Narrative 02/29/2016 11:27 EDT Indication Poorly seen anatomy. CP cyst. Chronic hypertension, medication -Doxepin. History ======= General History Height 163 cm Height (ft) ?5 ft Height (in) ?4 in Previous Outcomes ?4 Para ?? 2 Children born (T) ??2 Children born (P) ??0 Living children (L) ?2 Abortions (A) ??1 Number of fetuses: 1. Maternal Assessment Height 163 cm Height (ft) ?5 ft Height (in) ?4 in Physical Exam Initial weight 66 kg Initial weight (lb) ?146 lb Initial BMI ?25.06 kg/m? Screening Tests Wants to know gender: ??yes Dating ======= Stated Dating on: ?11/28/2015 [place] at stated dating date 8 w + 6 d Stated dating by: ?outside ultrasound [place] by stated dating ??22 w + 1 d NAZIA by stated dating: ?07/03/2016 Assigned: ??Dating performed on 02/15/2016 Based on the LMP Assigned GA ?21 w + 5 d Assigned NAZIA: ??07/06/2016 General Evaluation Cardiac activity: present. FHR 160 bpm. movements: visualized. Presentation: breech. Placenta: posterior. Amniotic fluid: Amount of AF: normal. Anatomy Head / Brain Head: ??normal Head: ??Shape and size Parenchyma: ?normal Lateral ventricles: ?normal Midline falx: ??normal Choroid plexus: ?normal Thorax / Heart / Great Vessels 4-chamber view: ?normal Abdomen Stomach: ?? normal Stomach: ?? Presence and size Urinary Tract / Genitals Bladder: ?? normal Bladder: ?? Size and location Wants to know gender: ??yes Method ======== Transabdominal ultrasound examination, Voluson E10. Sufficient. Impression [id number] Follow-up obstetrical ultrasound This is a reyes gestation. CP cyst is no longer seen. Profile appears normal on todays ultrasound. Except where noted above, the anatomy was not reviewed in detail as this is a follow-up study and the anatomy was previously assessed. As her anatomy scan occurred only 2 weeks ago, a growth assessment was not performed. Normal fluid and movement are noted. Follow-up Follow-up as clinically indicated. Procedure Note Kellie Turner MD - 02/29/2016 Indication Poorly seen anatomy. CP cyst. Chronic hypertension, medication -Doxepin. History ======= General History Height 163 cm Height (ft) 5 ft Height (in) 4 in Previous Outcomes 4 Para 2 Children born (T) 2 Children born (P) 0 Living children (L) 2 Abortions (A) 1 Number of fetuses: 1. Maternal Assessment Height 163 cm Height (ft) 5 ft Height (in) 4 in Physical Exam Initial weight 66 kg Initial weight (lb) 146 lb Initial BMI 25.06 kg/m? Screening Tests Wants to know gender: yes Dating ======= Stated Dating on: 11/28/2015 [place] at stated dating date 8 w + 6 d Stated dating by: outside ultrasound [place] by stated dating 22 w + 1 d NAZIA by stated datin07/03/2016 Assigned: Dating performed on 02/15/2016 Based on the LMP Assigned GA 21 w + 5 d Assigned NAZIA: 07/06/2016 General Evaluation Cardiac activity: present. FHR 160 bpm. movements: visualized. Presentation: breech. Placenta: posterior. Amniotic fluid: Amount of AF: normal. Anatomy Head / Brain Head: normal Head: Shape and size Parenchyma: normal Lateral ventricles: normal Midline falx: normal Choroid plexus: normal Thorax / Heart / Great Vessels 4-chamber view: normal Abdomen Stomach: normal Stomach: Presence and size Urinary Tract / Genitals Bladder: normal Bladder: Size and location Wants to know gender: yes Method ======== Transabdominal ultrasound examination, Voluson E10. Sufficient. Impression [id number] Follow-up obstetrical ultrasound This is a reyes gestation. CP cyst is no longer seen. Profile appears normal on todays ultrasound. Except where noted above, the anatomy was not reviewed in detail as this is a follow-up study and the anatomy was previously assessed. As her anatomy scan occurred only 2 weeks ago, a growth assessment was not performed. Normal fluid and movement are noted. Follow-up Follow-up as clinically indicated. us Vika Márquez MD IMG US [facility] ORDERABLES Final Res ult documented in this encounter Visit Diagnoses Not on filedocumented in this encounter Care Teams Accounts Receivable Administrator Relationship Specialty Start Date End Date Mary Trotter FNP [address] [place] [phone] PCP - General 02/14/16 09/02/22 documented as of this encounter
--- OUTSIDE RECORDS SUMMARY | 2024-09-20 11:18 | XMS_ITS | Encounter Summary ---
Author Organization [facility] Address [address] [place] [address] Care Team Providers Care Applications Scientist Name Role Phone Mary Trotter MOON Primary Care Provider [phone]- [phone] Encounter Details Date Type Department Care Team (Late st Contact Info) Description 12/16/2017 Historical Results Only [facility] - Main [place] [address] [place] [address] Vika Márquez MD [address] [place] [address], [address] [place] [address] Social History Tobacco Use Types [...] Date/Time Associated Diagnosis Comments SURGICAL PATHOLOGY Routine 12/16/2017 documented in this encounter Results * SURGICAL PATHOLOGY (12/16/2017) 12/16/2017 12/17/2017 8:1 5 EST Narrative [facility] - 12/18/2017 11:38 EST PREOP IRREGULAR BLEEDING Procedure: SONOHYST WITH EMB Tissue Removed ENDOMETRIAL LMP: Prev.Abn Pap: 11/2017 ----- ------- Name: ANIYA LUQUE ? : 83 ?Age/Sex: 33/F ?Unit#: [id number] ? Loc: AGO ? Status: REG POV ?? Reg Date: 12/16/17 ? Pt.Phone Number: ? ----- ------- Specimen: [id number] ?STATUS: SOUT ?Spec Date:12/16/17 ? Physician Copies: ?Vika Márquez MD ? Tissues: A ?? Endometrium, biopsy ?MILEY ARMENDARIZ CPT: 35898 ?? Units: ??1 ?FINAL DIAGNOSIS ? ENDOMETRIUM, BIOPSY; ? -Inactive endometrium with evidence of progestin therapy, ? -No evident hyperplasia or malignancy ----- ------- ?COMMENT ? Sections show inactive endometrium with small, compact inactive appearing glands set in a pseudodecidualized stroma. These features are consistent with exogenous hormone administration, specifically progestin treatment. No evident atypia, hyperplasia or malignancy. ? GROSS DESCRIPTION ? Received in formalin labeled with the patient's name is an estimated 0.5 cc ? aggregate of finley fragments, filtered. es 1 NM ?? PREOP DX/CLINICAL HISTORY ?IRREGULAR BLEEDING Signed ____(signature on file)____ Tess Thompson M.D. 12/18/17 ? By the signature above, the attending physician certifies that he/she has personally conducted a gross and/or microscopic examination of the described specimens and rendered or confirmed the above diagnosis. Test Performed by [facility], [address] [place], [place] [id number] Doors Prefitter: Birdie Sexton MD PHD ----- ------- us Vika Márquez MD PATHOLOGY ORDERABLES Final Resu lt Performing Organization Address City/State/[facility] Co de Phone Number [facility] documented in this encounter Visit Diagnoses Not on filedocumented in this encounter Care Teams Applications Scientist Relationship Specialty Start Date End Date Mary Trotter FNP [address] [place] [phone] PCP - General 02/14/16 09/02/22 documented as of this encounter
--- OUTSIDE RECORDS SUMMARY | 2024-09-20 11:18 | XMS_ITS | Encounter Summary ---
Author Organization [facility] Address [address] [place] [address] Care Team Providers Care Canal Superintendent Name Role Phone Mary Trotter Primary Care Provider +1- [phone] Encounter Details Date Type Department Care Team (Latest Contact Info) Description 07/01/2016 8:26 EDT - 07/01/2016 23:59 EDT Hospital Encounter [facility] [address] [place] [address] Unknown, Provider, MD Discharge Disposition: Home or [...] Code Departure Means Destination Home or Self Shelter documented in this encounter Plan of Treatment Not on file documented as of this encounter Visit Diagnoses Not on filedocumented in this encounter Care Teams Canal Superintendent Relationship Specialty Start Date End Date Mary Trotter FNP [address] [place] [phone] PCP - General 02/14/16 09/02/22 documented as of this encounter
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
--- OUTSIDE RECORDS SUMMARY | 2024-09-20 11:18 | XMS_ITS | Encounter Summary ---
Author Organization Health system Address [address] [place] [address] Care Team Providers Care Restaurant Hourly Manager Name Role Phone Mary Trotter MANIFEST CLERK Primary Care Provider +1- [phone] Encounter Details Date Type Department Care Team (Late st Contact Info) Description 05/02/2016 Historical Results Only [facility] Radiology Results [address] [place] [address] Vika Márquez MD [address] [facility], [address] [place] [address] Social History Tobacco Use Types [...] Date/Time Associated Diagnosis Comments US OB FOLLOWUP 05/02/2016 10:44 EDT documented in this encounter Results * US OB FOLLOWUP (05/02/2016 10:44 EDT) Anatomical Region Laterality Modality Pelvis Other 05/02/2016 10:4 4 EDT Narrative 05/03/2016 8:27 EDT ? EXAM: ULTRASOUND/OB LEVEL 2 FOLLOW UP ? EX. D/ (1044) ? CLINICAL INFORMATION: ? Z34.92 ENCOUNTER FOR SUPERVISION OF NORMAL ? 2ND TRIMESTER, GROWTH AND DEV FOR ? MATERNAL HTN, NAZIA 07/06/16 BY LMP 09/30/15 ? See attached report. ??Report also available in PACS. ? SNR:[email or web address] ?Reported By: Bo Santamaria MD ? CC: ? Transcribed Date/Time: 05/03/2016 (826) ? Mechanical Supervisor: KRISTEN ? Printed Date/Time: 04/02/2019 (0338) ? PAGE 1 ? Signed Report ? Procedure Note Bo Santamaria MD - 08/25/2019 EXAM: ULTRASOUND/OB LEVEL 2 FOLLOW UP EX. D/ (1044) CLINICAL INFORMATION: Z34.92 ENCOUNTER FOR SUPERVISION OF NORMAL 2ND TRIMESTER, GROWTH AND DEV FOR MATERNAL HTN, NAZIA 07/06/16 BY LMP 09/30/15 See attached report. Report also available in PACS. SNR:[email or web address] Reported By: Bo Santamaria MD CC: Transcribed Date/Time: 05/03/2016 (826) Mechanical Supervisor: KRISTEN Printed Date/Time: 04/02/2019 (0333) PAGE 1 Signed Report us Vika Márquez MD IMG OB ORDERABLES Final Resu lt documented in this encounter Visit Diagnoses Not on filedocumented in this encounter Care Teams Restaurant Hourly Manager Relationship Specialty Start Date End Date Mary Trotter FNP [address] [place] [phone] PCP - General 02/14/16 09/02/22 documented as of this encounter
--- OUTSIDE RECORDS SUMMARY | 2024-09-20 11:18 | XMS_ITS | Encounter Summary ---
Author Organization [facility] Address [address] [place] [address] Care Team Providers Care Networking Technology Instructor Name Role Phone Mary Trotter [address] FOREMAN Primary Care Provider +1- [phone] Encounter Details Date Type Department Care Team (Late st Contact Info) Description 06/05/2016 Historical Results Only [facility] Radiology Results [address] [place] [address] Vika Márquez MD [address] [facility], [address] [place] [address] Social History Tobacco Use Types [...] Date/Time Associated Diagnosis Comments US OB FOLLOWUP 06/05/2016 13:26 EDT documented in this encounter Results * US OB FOLLOWUP (06/05/2016 13:26 EDT) Anatomical Region Laterality Modality Pelvis Other 06/05/2016 13:2 6 EDT Narrative 06/06/2016 8:14 EDT ? EXAM: ULTRASOUND/OB LEVEL 2 FOLLOW UP ? EX. D/ (1326) ? CLINICAL INFORMATION: ? Z34.93 ENCOUNTER FOR SUPERVISION OF ? NORMAL IN THIRD TRIMESTER ? GROWTH AND DEVELOPMENT ? See attached report. ??Report also available in PACS. ? BBL:[email or web address] ?Reported By: Darron Ross MD ? CC: ? Transcribed Date/Time: 06/06/2016 (813) ? Certified Fire Investigator: KRISTEN ? Printed Date/Time: 04/02/2019 (1347) ? PAGE 1 ? Signed Report ? Procedure Note Darron Ross MD - 08/25/2019 EXAM: ULTRASOUND/OB LEVEL 2 FOLLOW UP EX. D/ (1326) CLINICAL INFORMATION: Z34.93 ENCOUNTER FOR SUPERVISION OF NORMAL IN THIRD TRIMESTER GROWTH AND DEVELOPMENT See attached report. Report also available in PACS. BBL:[email or web address] Reported By: Darron Ross MD CC: Transcribed Date/Time: 06/06/2016 (813) Certified Fire Investigator: KRISTEN Printed Date/Time: 04/02/2019 (2949) PAGE 1 Signed Report Vika Márquez MD G OB ORDERABLES Final Resu lt documented in this encounter Visit Diagnoses Not on filedocumented in this encounter Care Teams Networking Technology Instructor Relationship Specialty Start Date End Date Mary Trotter FNP [address] [place] [phone] PCP - General 02/14/16 09/02/22 documented as of this encounter
--- OUTSIDE RECORDS SUMMARY | 2024-09-20 11:18 | XMS_ITS | Encounter Summary ---
Author Organization [facility] Address [address] [place] [address] Care Team Providers Care Frame Polisher Name Role Phone Brendon Shah MD Primary Care Provider Mary Trotter Primary Care Provider [phone] Encounter Details Date Type Department Care Team (Late st Contact Info) Description 01/01/2012 Historical Results Only [facility] - Main [place] [address] [place] [phone] Vika Márquez MD [address] [place] [address], [address] [place] [address] Social History Tobacco Use Types [...] Date/Time Associated Diagnosis Comments SURGICAL PATHOLOGY Routine 01/01/2012 documented in this encounter Results * SURGICAL PATHOLOGY (01/01/2012) 01/01/2012 01/01/2012 17: 28 EDT Narrative [facility] - 01/07/2012 14:44 EDT PREOP MODERATE DYSPLASIA OF CERVIX Procedure: LEEP Tissue Removed 1. LEEP 2. ECC LMP: Prev.Abn Pap: 10/13/11 ----- ------- Name: ANIYA LUQUE ? : [birth year] ?Age/Sex: 34/F ?Unit#: [id number] ? Loc: AGO ? Status: REG POV ?? Reg Date: 01/01/12 ? Pt.Phone Number: ? ----- ------- Specimen: [id number] ? STATUS: SOUT ?Spec Date:01/01/12 ? Physician Copies: ?Vika Márquez MD ? Tissues: A ?? Female Reproductive System (CERVIX LEEP) ? Susie Hinton ? B ?? Female Reproductive System (ENDOCERVIX) ? CPT: 39893 ?? Units: ??1 ? 86799 ? 1 ?FINAL DIAGNOSIS ? A. Cervix, LEEP, biopsy; ? - ??Immature squamous metaplasia but no definite dysplasia. ? B. Endocervix, curettage; ? - ??tissue fragment showing benign endocervical glands and inflammation. ? Previous biopsy P 12-6100 shows high-grade dysplasia. ? GROSS DESCRIPTION ? A. Received in formalin and labeled LEEP are two tissue fragments which ? together aggregate 3 cm x 1 cm x 0.2 cm, joi inked, serially sectioned, e.s. ? B. Received in formalin and labeled ECC is a 0.2 cc aggregate of mucoid ? material, e.s. BT ?? PREOP DX/CLINICAL HISTORY ?Moderate dysplasia of cervix. Signed ____(signature on file)____ Hussein Jean M.D. 01/07/12 ?? By the signature above, the attending physician certifies that he/she has personally conducted a gross and/or microscopic examination of the described specimens and rendered or confirmed the above diagnosis. Test Performed by [facility], [address] [place] [address] Lacing Cutter: Birdie Sexton MD PHD ----- ------- us Vika Márquez MD PATHOLOGY ORDERABLES Final Resu lt [facility] documented in this encounter Visit Diagnoses Not on filedocumented in this encounter Care Teams Frame Polisher Relationship Specialty Start Date End Date Brendon Shah MD [address] [place] [phone] PCP - General 06/03/09 02/13/16 Mary Trotter FNP [address] [place] [phone] PCP - General 02/14/16 09/02/22 documented as of this encounter
--- OUTSIDE RECORDS SUMMARY | 2024-09-20 11:18 | XMS_ITS | Encounter Summary ---
Author Organization [facility] Address [address] [place] [address] Care Team Providers Care Physical Science Technician Name Role Phone Mary Trotter Kendra MUSTAFA Primary Care Provider [phone] Reason for Visit * Reason Onset Date Comments 12/05/2021 sooner appt Encounter Details Date Type Department Care Team (Late st Contact Info) Description 12/05/2021 Telephone [facility] [address] [place], [place] [phone] Shelly Salazar MD [address] [facility], [address] [place] [address] (sooner appt ) Social History Tobacco Use Types Packs/Day Years [...] on file documented as of this encounter Miscellaneous Notes * Telephone Encounter - Latosha Mclean RN - 12/05/2021 1658 EST Spoke w/pt and told her we are happy to see her but the best place for her first is to see a High risk OBS specialist at [facility] preferably as her brokerage office manager is also there and will make coordinating her care easier. Pt states she did call there and she faxed her records to them but has not heard back. Pt told it does take a little bit sometimes. Pt said she just wants to see Dr. Márquez and go from there. Pt told I would review w/Dr. Márquez and see what she felt was in the pt's best interest and that is what I did. Per Dr. Márquez she agrees w/Dr. Salazar's recommendations and that pt really needs to be at a high risk [facility] center for eval urgently. I relayed this to the pt and offered to call [facility] to check on process and pt said she would appreciate it if I would. I then called [facility] and spoke w/the scheduling engineering secretary and she said they have pt scheduled to see Dr. Romana Torres-high man on 12/10/2021 at 2:45pm, pt is to arrive at 2:30pm, clinic is on 5L. This info was relayed to pt aswell as reiterating instructions to go to ED for worsening or new concerning s/sx as noted in previous note. Pt stated understanding and agrees w/plan. Pt was appreciative of help. Dr. Salazar and Dr. Márquez aware of plan and pt's appt date and time. No further orders. * Telephone Encounter - Toyin Herbert - 12/05/2021 1404 EST Pt calling back, would like to just schedule a visit, pt said she is getting the run around, thinksshe needs to come in sooner than where I was going to schedule her because she doesn't think she will be able to keep the baby. Spoke with RL and she suggested ED call her back. documented in this encounter Plan of Treatment Not on file documented as of this encounter Visit Diagnoses Not on filedocumented in this encounter Care Teams Physical Science Technician Relationship Specialty Start Date End Date Mary Trotter FNP [address] [place] [phone] PCP - General 02/14/16 09/02/22 documented as of this encounter
--- OUTSIDE RECORDS SUMMARY | 2024-09-20 11:18 | XMS_ITS | Encounter Summary ---
Author Organization [facility] Address [address] [place] [address] Care Team Providers Care Mobile Solutions Architect Name Role Phone Brendon Shah MD Primary Care Provider Mary Trotter Primary Care Provider [phone] Encounter Details Date Type Department Care Team (Late st Contact Info) Description 2012 Historical Results Only [facility] - Main [place] [address] [place] [phone] Vika Márquez MD [address] [place] [address], [address] [place] [address] Social History Tobacco Use Types [...] Date/Time Associated Diagnosis Comments PAP TEST Routine 2012 documented in this encounter Results * PAP TEST (2012) 2012 06/24/2012 12: 31 EDT Narrative [facility] - 06/26/2012 13:58 EDT ----- ------- Name: ANIYA LUQUE ? : [birth year] ?Age/Sex: 34/F ?Unit#: [id number] ? Loc: AGO ? Status: REG POV ?? Reg Date: 06/23/12 ? Pt.Phone Number: ? ----- ------- Specimen: [id number] ?STATUS: SOUT ?Spec Date:06/23/12 ? Physician Copies: ?Vika Márquez MD ? Tissues: ? Cervical/Endo Pap ?Susie Hinton ? CPT: 54132 ?? Units: ??1 ----- ------- ? CYTOLOGY DIAGNOSIS SPECIMEN ADEQUACY: ?Satisfactory for evaluation. Transformation zone component present. GENERAL CATEGORIZATION: ?Negative for Intraepithelial Lesion or Malignancy DESCRIPTIVE DIAGNOSIS: ? Negative for Intraepithelial Lesion or Malignancy. RECOMMENDATIONS/COMMENTS: ?None. ----- ------- ORDER QUERIES: LMP: 06/15/12- DEPO PROVE ?? ? N Post ? N ??PREVIOUS ATYPICAL: Y BCP/HRT? N Rad Rx? N IUD? N ??PAP PLUS HPV? N ??REFLEX TO HR-HPV IF ASCUS ?? REFLEX TO HPV 16/18 IF HPV POS/PAP NEG ?? HPV REGARDLESS?RFLX HPV IF LSIL ?? IF ASCUS DO HPV? Y Signed Jesus Hernandez CT(ASCP) 06/26/12 ? By the signature above, the attending physician certifies that he/she has personally conducted a gross and/or microscopic examination of the described specimens and rendered or confirmed the above diagnosis. Test Performed by [facility], [address] [facility] [address] Product Management Manager: Birdie Sexton MD PHD ----- ------- us Vika Márquez MD PATHOLOGY ORDERABLES Final Resu lt [facility] documented in this encounter Visit Diagnoses Not on filedocumented in this encounter Care Teams Mobile Solutions Architect Relationship Specialty Start Date End Date Brendon Shah MD [address] [place] [phone] PCP - General 06/03/09 02/13/16 Mary Trotter FNP [address] [place] [phone] PCP - General 02/14/16 09/02/22 documented as of this encounter
--- OUTSIDE RECORDS SUMMARY | 2024-09-20 11:18 | XMS_ITS | Encounter Summary ---
Author Organization [facility] Address [address] [place] [address] Care Team Providers Care Exposure Machine Operator Name Role Phone Brendon Shah MD Primary Care Provider Mary Trotter Primary Care Provider [phone] Encounter Details Date Type Department Care Team (Late st Contact Info) Description 04/28/2010 Historical Results Only [facility] - Main [address] [address] Juwan Lisa MD Social History Tobacco Use Types Packs/Day [...] Date/Time Associated Diagnosis Comments SURGICAL PATHOLOGY Routine 04/28/2010 documented in this encounter Results * SURGICAL PATHOLOGY (04/28/2010) 04/28/2010 04/28/2010 12: 02 EDT Frida [facility] - 04/30/2010 10:36 EDT ----- ------- Name: ANIYA LUQUE ? : [birth year] ?Age/Sex: 34/F ?Unit#: [id number] ? Loc: ER ?Status: DEP ER ? Reg Date: 04/28/10 ? Pt.Phone Number: ? ----- ------- Specimen: [id number] ? STATUS: SOUT ?Spec Date:04/28/10 ? Physician Copies: ?Juwan Lisa MD Tissues: A ?? Urinary Tract (STONE) ?Vika Márquez MD ? CPT: 71709 ?? Units: ??1 ?FINAL DIAGNOSIS ? Gross Diagnosis: ? - Lithiasis. ? GROSS DESCRIPTION ? Received unfixed labeled with the patient's name is a mesh filter containing a ? visible less than 0.1 cm piece of brown presumed calculus material, gross ? description only. CP Signed ____(signature on file)____ Birdie Sexton M.D. 04/30/10 By the signature above, the attending physician certifies that he/she has personally conducted a gross and/or microscopic examination of the described specimens and rendered or confirmed the above diagnosis. Test Performed by [facility], [address] [place] [id number] Sole Layer Hand: Birdie Sexton MD PHD ----- ------- us Juwan Lisa MD PATHOLOGY ORDERABLES Final Re sult [facility] documented in this encounter Visit Diagnoses Not on filedocumented in this encounter Care Teams Exposure Machine Operator Relationship Specialty Start Date End Date Brendon Shah MD [address] [place] [phone] PCP - General 06/03/09 02/13/16 Mary Trotter FNP [address] [place] [phone] PCP - General 02/14/16 09/02/22 documented as of this encounter
--- OUTSIDE RECORDS SUMMARY | 2024-09-20 11:18 | XMS_ITS | Encounter Summary ---
Author Organization [facility] Address [address] [place] [address] Care Team Providers Care Air Table Operator Name Role Phone Brendon Shah MD Primary Care Provider Reason for Visit * Reason Comments Advice Only Encounter Details Date Type Department Care Team (Late st Contact Info) Description 12/14/2015 9:15 EST Initial consult [facility] - [address] [phone] Ivanna Vaughn MD [address] [place] [address], [address] [place] [phone] Chronic hypertension during , antepartum (Primary Dx) Social History Tobacco Use Types Packs/Day Years Used Date Smoking Tobacco: Never Assessed Comments Yes Sex and Gender Information Value Date Recorded Sex Assigned at Not on file Legal Sex Female 18:29 EST Gender Identity Female 09/03/2022 13:23 EST Sexual Orientation Not on file documented as of this encounter Last Filed Vital Signs Vital Sign Reading Time Taken Comments Blood Pressure 140/88 12/14/2015 0904 EST Pulse - - Temperature - - Respiratory Rate - - Oxygen Saturation - - Inhaled Oxygen Concentration - - Weight 65.8 kg (145 lb) 12/14/2015 0904 EST Height 162.6 cm (5' 4) 12/14/2015 0904 EST Body Mass Index 24.89 12/14/2015 0904 EST documented in this encounter Progress Notes * Ivanna Vaughn MD - 12/26/[address] Yan: Thank you for asking us to see your patient, Aniya Luque at the maternal- medicine clinic at [facility]. As you know, she is a 30-year-old 4, para 2-0-2-2 female with an intrauterine at 10 weeks 5 days' gestation. Her estimated date of delivery is07/03/2016 based on an ultrasound performed through your facility at 8 weeks 6 days' gestation. Shewas seen today in consultation regarding her history of chronic hypertension, anxiety, depression, asthma and a prior LEEP procedure. Her pertinent history is as follows: 1. Chronic hypertension. Ms Luque reports that her blood pressures have been elevated, to her knowledge, for the past one to two years. She reports that when she does not take medications, her bloodpressures typically run in the 150s to 160s over 90s to 100s. She reports that her primary care physician had started her on labetalol in the past, and then she switched to another antihypertensive, whose name she cannot remember, for several weeks, then discontinued all of her antihypertensives until finding out she was . On review of her records at her first visit on November 03, her blood pressure was normal at 126/78, but at her subsequent visit on November 28 her blood pressure was elevated at 150/108. She reports that in late October, she was restarted on labetalol; however, she had forgotten to take her dose on the day of her visit on November 28. She reports a dose of 100 mg b.i.d. She denies any history of kidney dysfunction, but does not know if she has ever had her kidney function checked. She denies a strong family history of hypertension. She denies a history of hypertension or preeclampsia in any of her prior pregnancies. 2. Anxiety and depression. Ms Luque has a rather extensive history of anxiety and depression, which has resulted in inpatient psychiatric admission on multiple occasions. She reports that she was first admitted to an inpatient psychiatric service in 2005 and then had multiple admissions in 2008 and again more recently was admitted to a psychiatric service in 2011. She reports that she has been trialed on multiple different medications and more recently has been stable on doxepin. She was taking a dose of 150 mg daily prior to . She sees her counselor weekly and also sees her psychiatrist, Dr Valentine on a monthly basis. Since becoming , she has been tapered down to to 25 mg p.o. every 2 to 3 days. She is having some difficulty with worsening anxiety and depression on thelower dose. She reports that she was also taking Valium for her anxiety--up to 5 mg t.i.d, and gabapentin prior to . She reports the gabapentin helped treat her anxiety as well as joint pain. She discontinued both of these medications after finding out that she was . She reports that since discontinuing the gabapentin and Valium, her anxiety has been relatively well-controlled, although she has had trouble sleeping and has been using benadryl prn. She does report that when her doxepin has been discontinued in the past that she has difficulty maintaining her appetite and has had significant weight loss. She denies any suicidal or homicidal ideations currently and reports that she has a relatively stable social situation and feels safe at her home. 3. Asthma. She reports a long history of mild intermittent asthma requiring the use of albuterol asneeded. She has been seen in the emergency department once due to an asthma exacerbation in the distant past, but has never been admitted to the hospital or intubated for her asthma. Triggers are tobacco exposure and exercise. She did require a course of prednisone during an upper respiratory infection about a year ago. She reports that so far during , her asthma has been well controlled, and she has not needed to use her albuterol at all. 4. History of LEEP procedure. This was performed in 2011. She reports that her most recent Pap smear was normal. Other Past Medical Problems: Seasonal allergies, history of urinary tract infections. Past Surgical History: Dilation and curettage x 2, LEEP procedure. Past Obstetric History: 1. In 2001, she had a spontaneous in the first trimester, which was treated with dilation and curettage. She reports this was uncomplicated. 2. In 2002, she had a spontaneous vaginal delivery at 38 weeks of a 7-pound 4 ounce male at [facility]. She reports the was uncomplicated and that the child is healthy. She did have endometritis after this delivery. 3. In 2008, she had a spontaneous vaginal delivery at 38-1/2 weeks of a 6 pound 9 ounce female at [facility]. She reports this was uncomplicated and that her infant is healthy. Of note, during this she was treated with both doxepin and Klonopin. Her infant was monitored for abstinence syndrome for 3 days after delivery, but did not need treatment. Past Gynecologic History: LEEP procedure in 2011, D+C's in 2001 and 2011. She denies a history of sexually transmitted infections. She reports in 2011, she underwent a dilation and curettage for menorrhagia. She reports a recent normal Pap smear. She reports a history of irregular cycles. She was relatively sure of her last menstrual period, but reported a short 23 day cycle, and thus reports sheis dated by her 8-week 6-day ultrasound for the current . Social History: She lives in [place] and stays at home with her children. She has a significant history of tobacco use and smoked 1 pack per day prior to . She has cut down to one-half pack per day currently. She does have a history of illicit drug use. She reports cocaine was her drug of choice with last use in 2005. Medications: Labetalol 100 mg p.o. b.i.d. Doxepin 25 mg p.o. every 2 to 3 days. Albuterol p.r.n. Benadryl p.r.n. Allergies: SEROQUEL causes a rash; MORPHINE causes hallucinations. Family History: She denies a family history of complications, genetic syndromes or congenital malformations. She reports that her first-degree family members are healthy to her knowledge. She does have a maternal aunt who had multiple miscarriages; however, also had 4 healthy children. She denies a family history of venous thromboembolism. Physical Exam: Blood pressure 140/88, weight 145 pounds. General: Well-appearing female in no acute distress. Summary and Recommendations: 1. Chronic hypertension. Ms Luque's hypertension seems appropriately controlled currently on 100 mg of labetalol b.i.d. She reports that a 24-hour urine collection has already been ordered. I do notsee a recent serum creatinine in her records, and it would also be reasonable to obtain a baseline creatinine level as well as baseline LFTs. We discussed complications associated with chronic hypertension including worsening hypertension or development of preeclampsia, and increased risks of small for gestational age infant and intrauterine . I recommend that she begin taking baby aspirin at a dose of 81 mg per day starting at 12 weeks gestation. I recommend that she have monthly ultrasounds to follow growth after 28 weeks and initiation of testing in the form of weekly biophysical profiles or twice weekly NSTs and weekly AFIs starting at 32 weeks.I discussed that optimal delivery timing for patients with chronic hypertension that is well-controlled on medication with no additional complications seems to be 38 to 39 weeks. Certainly, she is athigh risk of worsening hypertension or development of preeclampsia as the progresses. I would recommend continuing to treat her blood pressure for a goal of 140-150 over 80 to 90, with close surveillance for superimposed preeclampsia. I discussed that if she develops severe preeclampsia that we would recommend delivery after 34 weeks; or worsening chronic hypertension or superimposed mild preeclampsia, we would recommend delivery at 37 weeks. 2. Anxiety and depression. Her psychiatrist is currently weaning her from her doxepin and she is endorsing some difficulty with her decreased doses. We discussed today that the most important thing during is to keep her psychiatric status stable. We have rather limited information on TCA exposure in and these medications are used less commonly since the introduction of SSRIs. In Mrs Luque's case, however, she reports being on multiple different SSRIs without success. Tricyclic antidepressants have not been conclusively linked to an increase in defects; however, we discussed that prospective randomized controlled trials do not exist. Certainly, I would recommend con tinued close followup with her counselor and psychiatrist and would agree with her psychiatrist's recommendations for psychiatric treatment. It would be reasonable, however, to keep her on doxepin ifthis is necessary to keep her symptoms well-controlled. Regardless of what anti-depressant she endsup on, it would be reasonable to obtain a detailed ultrasound between 19 and 21 weeks to look at anatomy. I would recommend consultation with our [facility] pediatric group prior to delivery in the third trimester if she continues on the doxepin, as it has been associated with abstinence syndrome. while on doxepin is also controversial and her algorithm design engineer should be notified if she continues on doxepin while and the infant should be monitored closely for excess sedation and weight gain. There are reports of infants who have shown signs of excessive sedation while mothers were taking doxepin. Again, I reiterated that her psychiatric stability is the most important thing, and if she needs to continue on doxepin at a high-dose that would be reasonable. Additionally, if Benadryl cannot help her sleep, and she is experiencing significant anxiety, then reinitiation of a short-acting benzodiazepine would be reasonable if needed. We discussed that both Xanax or Ativan may be added on a p.r.n. basis; however, the addition of more psychiatric medications does increase the risk of abstinence syndrome. Again, she should be on the lowest dose possible to adequately control her symptoms. 3. History of LEEP procedure. I agree with the recommendation for a transvaginal ultrasound for cervical length in the second trimester, sometime between 18 and 24 weeks. We would be happy to performthis on the same day as her detailed ultrasound if you would like to send her for this. 4. Mild intermittent asthma. Her asthma does not seem to be an issue at this time. I recommend thatshe continue to use albuterol as needed during the . Certainly, if she is needing to use her albuterol multiple times per week it may be reasonable to add maintenance medication, but this does not seem necessary currently. At the conclusion of our discussion today, the patient had no further questions. I would be happy to see her back in consultation later on in , however, if you feel this is necessary. [place] not hesitate to call me if you have any questions regarding her care. Sincerely, Ivanna Vaughn MD Maternal Medicine documented in this encounter Plan of Treatment Not on file documented as of this encounter Visit Diagnoses Diagnosis Chronic hypertension during , antepartum- Primary documented in this encounter Historical Medications * This list may reflect changes made after this encounter. doxepin (SINEQUAN) 25 mg capsule Take 25 mg by mouth twice a week. labetalol (NORMODYNE) 100 mg tablet Take 100 mg by mouth daily. added in this encounter Care Teams Air Table Operator Relationship Specialty Start Date End Date Brendon Shah MD [address] [place] [phone] PCP - General 06/03/09 02/13/16 documented as of this encounter
--- OUTSIDE RECORDS SUMMARY | 2024-09-20 11:18 | XMS_ITS | Encounter Summary ---
Author Organization [facility] Address [address] [place] [address] Care Team Providers Care Seo Analyst Name Role Phone Brendon Shah MD Primary Care Provider Mary Trotter Primary Care Provider [phone] Encounter Details Date Type Department Care Team (Late st Contact Info) Description 12/31/2012 Historical Results Only [facility] - Main [place] [address] [place] [phone] Vika Márquez MD [address] [place] [address], [address] [place] [address] Social History Tobacco Use Types [...] Date/Time Associated Diagnosis Comments PAP TEST Routine 12/31/2012 documented in this encounter Results * PAP TEST (12/31/2012) 12/31/2012 12/31/2012 18: 51 EDT Narrative [facility] - 01/05/2013 10:48 EDT ----- ------- Name: ANIYA LUQUE ? : [birth year] ?Age/Sex: 34/F ?Unit#: [id number] ? Loc: AGO ? Status: REG POV ?? Reg Date: 12/31/12 ? Pt.Phone Number: ? ----- ------- Specimen: [id number] ?STATUS: SOUT ?Spec Date:12/31/12 ? Physician Copies: ?Vika Márquez MD ? Tissues: ? Cervical/Endo Pap ?Mary Trotter APR CPT: 74756 ?? Units: ??1 ----- ------- ? CYTOLOGY DIAGNOSIS SPECIMEN ADEQUACY: ?Satisfactory for evaluation. Transformation zone component present. GENERAL CATEGORIZATION: ?Negative for Intraepithelial Lesion or Malignancy DESCRIPTIVE DIAGNOSIS: ? Negative for Intraepithelial Lesion or Malignancy. RECOMMENDATIONS/COMMENTS: ?None. ----- ------- ORDER QUERIES: LMP: 11/20/12- DEPO ? N Post ? N ??PREVIOUS ATYPICAL: Y BCP/HRT? N Rad Rx? N IUD? N ??PAP PLUS HPV? N ??REFLEX TO HR-HPV IF ASCUS ?? REFLEX TO HPV 16/18 IF HPV POS/PAP NEG ?? HPV REGARDLESS?RFLX HPV IF LSIL ?? IF ASCUS DO HPV? Y Signed Roverto Castro CT(ASCP) 01/05/13 By the signature above, the attending physician certifies that he/she has personally conducted a gross and/or microscopic examination of the described specimens and rendered or confirmed the above diagnosis. Test Performed by [facility], [address] [facility] [address] Head Resident: Birdie Sexton MD PHD ----- ------- us Vika Márquez MD PATHOLOGY ORDERABLES Final Resu lt [facility] documented in this encounter Visit Diagnoses Not on filedocumented in this encounter Care Teams Seo Analyst Relationship Specialty Start Date End Date Brendon Shah MD [address] [place] [phone] PCP - General 06/03/09 02/13/16 Mary Trotter FNP [address] [place] [phone] PCP - General 02/14/16 09/02/22 documented as of this encounter
--- OUTSIDE RECORDS SUMMARY | 2024-09-20 11:18 | XMS_ITS | Encounter Summary ---
Author Organization [facility] Address [address] [place] [address] Care Team Providers Care Pan Shaker Name Role Phone Brendon Shah MD Primary Care Provider Mary Trotter Primary Care Provider [phone] Encounter Details Date Type Department Care Team (Late st Contact Info) Description 07/30/2011 Historical Results Only [facility] - Main [place] [address] [place] [phone] Vika Márquez MD [address] [place] [address], [address] [place] [address] Social History Tobacco Use Types [...] Date/Time Associated Diagnosis Comments PAP TEST Routine 07/30/2011 documented in this encounter Results * PAP TEST (07/30/2011) 07/30/2011 07/30/2011 20: 06 EDT Narrative [facility] - 08/08/2011 10:28 EDT ----- ------- Name: ANIYA LUQUE ? : [birth year] ?Age/Sex: 34/F ?Unit#: [id number] ? Loc: AGO ? Status: REG POV ?? Reg Date: 07/30/11 ? Pt.Phone Number: ? ----- ------- Specimen: [id number] ?STATUS: SOUT ?Spec Date:07/30/11 ? Physician Copies: ?Vika Márquez MD ? Tissues: ? Cervical/Endo Pap ?Susie Hinton ? CPT: 02850 ?? Units: ??1 ----- ------- ? CYTOLOGY DIAGNOSIS SPECIMEN ADEQUACY: ?Satisfactory for evaluation. Transformation zone component present. GENERAL CATEGORIZATION: ?Epithelial Cell Abnormality. DESCRIPTIVE DIAGNOSIS: ?Squamous Cell Abnormality Low grade squamous intraepithelial lesion (LSIL). RECOMMENDATIONS/COMMENTS: ??Recommend following the 2006 Consensus Guidelines for the Management of ??Women with Cervical Cytologic Abnormalities. ??Management algorithms have been distributed and are also available online at www.[email or web address].org/consensus.shtml. ----- ------- ORDER QUERIES: LMP: ? - DEPO PROVE ?? ? N Post ? N ??PREVIOUS ATYPICAL: Y BCP/HRT? N Rad Rx? N IUD? N ??PAP PLUS HPV? N ??REFLEX TO HR-HPV IF ASCUS ?? REFLEX TO HPV 16/18 IF HPV POS/PAP NEG ?? HPV REGARDLESS?RFLX HPV IF LSIL ?? IF ASCUS DO HPV? Y Signed ____(signature on file)____ Birdie Sexton M.D. 08/08/11 By the signature above, the attending physician certifies that he/she has personally conducted a gross and/or microscopic examination of the described specimens and rendered or confirmed the above diagnosis. Test Performed by [facility], [address] [place] [address] Scalemaker: Birdie Sexton MD PHD ----- ------- us Vika Márquez MD PATHOLOGY ORDERABLES Final Resu lt [facility] documented in this encounter Visit Diagnoses Not on filedocumented in this encounter Care Teams Pan Shaker Relationship Specialty Start Date End Date Brendon Shah MD [address] [place] [phone] PCP - General 06/03/09 02/13/16 Mary Trotter FNP [address] [place] [phone] PCP - General 02/14/16 09/02/22 documented as of this encounter
--- OUTSIDE RECORDS SUMMARY | 2024-09-20 11:18 | XMS_ITS | Encounter Summary ---
Author Organization [facility] Address [address] [place] [address] Care Team Providers Care Manager Programming Name Role Phone Brendon Shah MD Primary Care Provider Susie Hinton MD Primary Care Provider [phone] Encounter Details Date Type Department Care Team (Late st Contact Info) Description 12/22/2008 Before PRISM Converted Visit (Maple) [facility] - Maple conversion [address] [place] [address] Jorge Foster MD Social History Tobacco Use Types Packs/Day Years Used Date Smoking Tobacco: Never Assessed Comments Unknown Sex and Gender Information Value Date Recorded Sex Assigned at Not on file Legal Sex Female 18:29 EST Gender Identity Female 09/03/2022 13:23 EST Sexual Orientation Not on file documented as of this encounter Consult Notes * Jorge Foster MD - 11/22/2009 0046 EST DIVISION OF MATERNAL MEDICINE CONSULTATION - 12/22/2008 Vika M[facility]quez MD [facility] [address] [facility], [address] [place] [address] [address] Márquez: Thank you for allowing us to participate in this patient's care via a maternal- medicine consultation secondary to her history of early Klonopin exposure. As you are aware, this patient is a 23-year-old para 1-0-1-1, who presents to our office today at 18 weeks and 6 days for a maternal- medicine consultation and detailed ultrasound secondary to her history of early Klonopin exposure. The patient's history is complicated by significant anxiety with some depression, for which she hasbeen on multiple medications throughout the years. She relates multiple serotonin reuptake inhibitors, which you felt were unsuccessful in managing her anxiety. She ended up on Klonopin lastyear, andwith her last menstrual period of August 12, 2008, and a positive test on September 10, 2008, she believes she stopped the Klonopin within two weeks of her positive test. She currently sees Dr Whiting, a counselor, at the [facility] for this disorder. In addition, she relates having a rash that started on her stomach, which she said went to her extremities, and is currently on Benadryl for both her anxiety and her rash, 25 mg twice a day. She has been on and offKlonopin since 2005 and again stopped she believes within six weeks of her last menstrual period. Her has been complicated by what she has called a cervical infection, and shegets left lower quadrant pain on and off that she describes as mostly there during the day, but shegets some relief on occasion. She does not relate it to eating, defecating, or movement. Her past obstetrical history is remarkable for a vaginal delivery at term in 2002, at which time she was admitted two days after discharge secondary to a readmission secondary to uterine infection. She does recall that her umbilical cord broke, and she describes what seems like a manual removal of the placenta at that time, which would increase her risk for endometritis. She did not undergo a dilatation and curettage and was hospitalized for a few days for antibiotic therapy and then was discharged. In addition, she had a spontaneous miscarriage, for which she underwent a dilatation and curettage in the past. She relates that this was in 2001 and felt she was approximately 16 weeks at the time. We reviewed the ultrasound today, which showed a fetus with all biometric parameters consistent with 18 weeks and 6 days, which is consistent with her prior dating. A detailed anatomic assessment was unremarkable, with no abnormalities noted. Her ovaries were poorly seen due to her mildtenderness, greater on the left than on the right, but no definitive abnormality could be identified in either adnexa. We reviewed this information with the patient, who understands that while Klonopin has been associated with teratogenicity in some settings, the risk overall appears to be low, and with her stopping the medication in early and the normal ultrasound today, Yajaira we can reassure her that there is minimal to any ongoing concern at this time. The patient does, however, wish to begin backon some anxiolytic as she feels that her quality of life at this time off medication is significantly compromised. I told her to speak with you or Dr Wihting, and we would be happy to be involved inthat conversation regarding what medications to begin for her. Overall, the serotonin reuptake inhibitors are often the first-line medications, and some of those antidepressants are also quite good anxiolytics. If those are not successful and Klonopin is the only medication that she feels is usefulfor her, it is reasonable to continue the Klonopin, and we did discuss the risks and benefits of using the medication should she feel she needs it during the second half of . In addition, she states that she had approximately six urinary tract infections during this but does not relate having had a catheterized specimen at any time. As it quite often is difficult to do a clean-catch specimen during and symptomatology of urinary tract infections are often mimicked by itself, it would be important to accurately document the presence of a urinary tract infection, and if this cannot be performed with aclean-catch specimen, which is common, then a catheterized specimen should be performed. If this patient has persistent urinary tract infections of two or more, then it would be important for her to be started on suppressive therapy duringthe remainder of the and possibly in the period. While catheterization is not an easy process for the patient, it does document the need for antibiotic therapy and minimizes the over-treatment in this setting. On clinical evaluation today, she measures approximately 19 weeks of fundal height and has mild tenderness to her left lower quadrant. There is no tenderness on uterine movement or on movement.There is a very minimal punctate rash on her body, which does not appear to be associated with pruritus at this time and is not confluent at all. The patient seems to think that this is a rash, and this is likely worth following over time. As it begins to look more like spider bites, then other actions may have to be taken, but no significant confluent rash is seen on any part of her body today. In summary, this patient had early Klonopin exposure and is currently at 18+6 weeks of intrauterinepregnancy with a normal detailed congenital anomaly screen today. We have reassured her at this point of theminimal risk associated with early Klonopin exposure, and she wants to discuss restarting anxiolytic medications as she thinks it will significantly alter her quality of life, and we have discussed the risks and benefits of the different medications with her. Thank you again for allowing us to participate in this patients care, and please do not hesitate tocontact me if you need any further information regarding her visit to our office today. We spent approximately 45 minutes in [id number] consultation regarding these issues with this patient. Sincerely, Signed by Jorge Foster MD 01/23/2009 16:52 Jorge Foster MD - Jorge Foster MD - Job ID: [id number] Doc ID: [id number] cc: Vika Márquez MD documented in this encounter Plan of Treatment Not on file documented as of this encounter Visit Diagnoses Not on filedocumented in this encounter Care Teams Manager Programming Relationship Specialty Start Date End Date Brendon Shah MD [address] [place] [phone] PCP - General 06/03/09 02/13/16 Susie Hinton MD [address] [place] [phone] PCP - General 03/04/09 06/02/09 documented as of this encounter
--- OUTSIDE RECORDS SUMMARY | 2024-09-20 11:18 | XMS_ITS | Encounter Summary ---
Author Organization [facility] Address [address] [place] [address] Care Team Providers Care Lacing String Cutter Name Role Phone Brendon Shah MD Primary Care Provider Susie Hinton MD Primary Care Provider [phone] Mary Trotter Primary Care Provider None, Provider Primary Care Provider Unavailabl e Encounter Details Date Type Department Care Team (Late st Contact Info) Description 12/22/2008 Before PRISM Converted Visit (Maple) [facility] [address] [address] Vika Márquez MD [address] [place] [address], [address] [place] [address] Social History Tobacco Use Types [...] Procedure Name Priority Date/Time Associated Diagnosis Comments FPC DETAILED 12/22/2008 16:29 EST documented in this encounter Results * FPC DETAILED (12/22/2008 16:29 EST) Anatomical Region Laterality Modality Other 12/22/2008 16:2 9 EST Narrative 02/14/2009 3:06 EDT DETAILED,16362/MATERNAL MED COND.,KLONPIN USE Please refer to the separate [facility] report. ??Contact Maternal Medicine. Procedure Note Adan Maravilla MD - 02/14/2009 DETAILED,74258/MATERNAL MED COND.,KLONPIN USE Please refer to the separate [facility] report. Contact Maternal Medicine. Vika Márquez MD [facility] FPC ORDERABLES Final Res ult documented in this encounter Visit Diagnoses Not on filedocumented in this encounter Additional Health Concerns Infection Onset Date Last Indicated Resolved Time R/O COVID-19 09/03/2022 09/03/2022 09/08/2022 22:1 8 EST documented as of this encounter Care Teams Lacing String Cutter Relationship Specialty Start Date End Date Brendon Shah MD [address] [place] [phone] PCP - General 06/03/09 02/13/16 Susie Hinton MD [address] [place] [phone] PCP - General 03/04/09 06/02/09 Mary Trotter FNP [address] [place] [phone] PCP - General 02/14/16 09/02/22 None, Provider PCP - General 09/03/22 documented as of this encounter
--- OUTSIDE RECORDS SUMMARY | 2024-09-20 11:18 | XMS_ITS | Encounter Summary ---
Author Organization [facility] Address [address] [place] [address] Care Team Providers Care Print Washer Name Role Phone Unavailable Primary Care Provider Unavailabl e Encounter Details Date Type Department Care Team (Late st Contact Info) Description 12/22/2008 13:24 EST Hospital Encounter [facility] [address] [place] [address] Vane Pagan MD [address] [facility], [address] [place] [phone] Kellie Moon MD [address] [phone] Social History Tobacco Use Types Packs/Day Years [...] 12:04 EST documented as of this encounter Plan of Treatment Not on file documented as of this encounter Visit Diagnoses Not on filedocumented in this encounter Additional Health Concerns Infection Onset Date Last Indicated Resolved Time R/O COVID-19 09/03/2022 09/03/2022 09/08/2022 22:1 8 EST documented as of this encounter
--- OUTSIDE RECORDS SUMMARY | 2024-09-20 11:18 | XMS_ITS | Encounter Summary ---
Author Organization [facility] Address [address] [place] [address] Care Team Providers Care Counter Checker Name Role Phone Brendon Shah MD Primary Care Provider Susie Hinton MD Primary Care Provider [phone] Encounter Details Date Type Department Care Team (Late st Contact Info) Description 01/25/2009 Before PRISM Converted Visit (Maple) [facility] - Maple conversion [address] [place] [address] Moo Burnette MD Social History Tobacco Use Types Packs/Day Years Used Date Smoking Tobacco: Never Assessed Comments Unknown Sex and Gender Information Value Date Recorded Sex Assigned at Not on file Legal Sex Female 18:29 EST Gender Identity Female 09/03/2022 13:23 EST Sexual Orientation Not on file documented as of this encounter Progress Notes * Moo Burnette MD - 12/28/2009 2206 EST [facility] PROGRESS/FOLLOWUP NOTE - 01/25/2009 PROBLEM: Pharyngitis. HANY Aniya is here to evaluate progressive illness with sore throat, fever and chills on and off and general malaise that she has had for the past week. She is six months . She has been experiencing some increased lower abdominal pain and reports leaking significant amounts of fairly clear watery fluid from vagina. Previously this had just been a scant discharge, but early today she soaked her pants and has had a continued steady dribble of fluid. Shehas thought that there has been less movement. She is not taking any regular medication. There has been no bleeding. She denies nausea, vomiting and cough. OBJECTIVE Blood pressure 112/60. Pulse 96. Temperature 98.4. TMs clear. Throat clear, no exudate. Sinuses nontender. Neck supple, no adenopathy. Lungs are clear. Heart sounds normal. Abdomen: Gravid uterus at umbilicus. ASSESSMENT 1. Acute viral illness. 2. Six months with vaginal leak. Question draining amnionic fluid. PLAN 1. I obtained a strep culture. The patient was verbally educated on viral infection.There were no barriers to learning and the patient verbalized understanding. She will treat this symptomatically. 2. I had her go directly from my office down to the [facility] office and spoke to the bilingual receptionist to describe her situation of leaking a clear fluid. Signed by Moo Burnette MD 02/06/2009 07:52 Moo Burnette MD A Job ID [id number] A/XAVIER Doc ID [id number] cc: [facility] documented in this encounter Plan of Treatment Not on file documented as of this encounter Visit Diagnoses Not on filedocumented in this encounter Care Teams Counter Checker Relationship Specialty Start Date End Date Brendon Shah MD [address] [place] [phone] PCP - General 06/03/09 02/13/16 Susie Hinton MD [address] [place] [phone] PCP - General 03/04/09 06/02/09 documented as of this encounter
--- OUTSIDE RECORDS SUMMARY | 2024-09-20 11:18 | XMS_ITS | Encounter Summary ---
Author Organization [facility] Address [address] [place] [address] Care Team Providers Care Stain Dipper Name Role Phone Mary Trotter INFECTION PREVENTION PRACTITIONER Primary Care Provider [phone] Reason for Visit * Reason Onset Date Comments 12/05/2021 just had a heart attack and found out she is , her tool and die inspector wanted her to contact [facility] Encounter Details Date Type Department Care Team (Late st Contact Info) Description 12/05/2021 Telephone [facility] [address] [place], [place] [phone] Vika Márquez MD [address] [facility], [address] [place] [phone] (just had a heart attack and found out she is , her tool and die inspector wanted her to contact [facility]) Social History Tobacco Use Types Packs/Day Years [...] Encounter - Latosha Mclean RN - 12/05/2021 0956 EST After further discussion w/Dr. Martin Kwan was advised to call [facility] today for an urgent consult /pelvic pain and recent AK. Pt given number to [facility] as pt goes there for her Cardiaccare suggested it would make coordinating her care easier. Pt told if she develops worsening pain, heavy bleeding, lightheadedness or dizziness then she is to go immediately to the nearest ED. Pt verified [facility] tel number verbally. Pt stated understanding and agrees w/plan. * Telephone Encounter - Shelly Salazar MD - 12/05/2021 0917 EST The most recent thing I'm seeing from [facility] is from 2016. Will need to get records of recent visits and cardiac history. Most likely she will need to seek with MFM if she is very high risk, there are some cardiac conditions which termination is considered or recommended because of significant risk to mom. If she had her previous care at [facility] it might make most sense to speak with MFM at [facility], she can call [facility] or her tool and die inspector at [facility] can place an urgent referral. As far as pain she is having...other than LMP did they do any evaluation of the to find out how far along, Quant, US? If not then she should have quant followed by [facility] done today. * Telephone Encounter - Latosha Mcelan RN - 12/05/2021 0850 EST 11/04/2021 AK 6 times, in ICU 3 wks, defibrillator placed'. She wasn't feeling well nausea, dizzy, clammy so went to ED last night and her defibrillator was check and was ok, VS were ok and bloodwork was ok except for the fact that she was . Pt was advised to call [employer]ED SOCIAL WORK[facility] to discuss risks of in the shadow of her cardiac hx. LMP 10/25/2021 APPROX.. Photographic Restorer is at [facility]. This is not a planned . Since 3am pt states she has been experiencing a lot of pain down there suprapubic, right side slightly worse than the left. No vaginal bleeding. Pain is 5/10 after having taken ibuprofen and tylenol. Pt told I will discuss w/provider resource conservation manager and will call pt back but if her s/sx worsen before shehears from us she is to go directly to the ED. Pt stated understanding and agrees w/plan. Note to Dr. Salazar high priority. * Telephone Encounter - Toyin Herbert - 12/05/2021 0841 EST Pt called states she had a heart attack and was advised to call us because she found out she is , pt said she has not been feeling well. Her cardiology doctor wanted her to call and be seen or talk about risks. She is early stages of . documented in this encounter Plan of Treatment Not on file documented as of this encounter Visit Diagnoses Not on filedocumented in this encounter Care Teams Stain Dipper Relationship Specialty Start Date End Date Mary Trotter FNP [address] [place] [phone] PCP - General 02/14/16 09/02/22 documented as of this encounter
--- OUTSIDE RECORDS SUMMARY | 2024-09-20 11:18 | XMS_ITS | Encounter Summary ---
Author Organization [facility] Address [address] [place] [address] Care Team Providers Care Strike Warfare/Missile Systems Officer Name Role Phone Brendon Shah MD Primary Care Provider Encounter Details Date Type Department Care Team (Late st Contact Info) Description 12/13/2015 Documentation Visit [facility] Obstetrics & Midwifery - [address] [phone] Ivanna Vaughn MD [address] [facility], [address] [place] [address] Social History Tobacco Use Types Packs/Day Years Used Date Smoking Tobacco: Never Assessed Comments Yes Sex and Gender Information Value Date Recorded Sex Assigned at Not on file Legal Sex Female 18:29 EST Gender Identity Female 09/03/2022 13:23 EST Sexual Orientation Not on file documented as of this encounter Progress Notes * Kamini Barfield - 12/13/2015 0849 EST episode and dating added for consult 12.14.15 Kamini Barfield documented in this encounter Plan of Treatment Not on file documented as of this encounter Visit Diagnoses Not on filedocumented in this encounter Care Teams Strike Warfare/Missile Systems Officer Relationship Specialty Start Date End Date Brendon Shah MD [address] [place] [phone] PCP - General 06/03/09 02/13/16 documented as of this encounter
--- OUTSIDE RECORDS SUMMARY | 2024-09-20 11:18 | XMS_ITS | Encounter Summary ---
Author Organization [facility] Address [address] [place] [address] Care Team Providers Care Industrial Welder Name Role Phone Brendon Shah MD Primary Care Provider Mary Trotter Primary Care Provider [phone] Encounter Details Date Type Department Care Team (Late st Contact Info) Description 09/04/[address] [facility] Lab - Main [place] [address] [place] [phone] Vika Márquez MD [address] [place] [address], [address] [place] [address] Social History Tobacco Use Types [...] Date/Time Associated Diagnosis Comments SURGICAL PATHOLOGY Routine 09/04/2011 documented in this encounter Results * SURGICAL PATHOLOGY (09/04/2011) 09/04/2011 09/04/2011 11: 49 EST Narrative [facility] - 09/06/2011 15:07 EST PREOP LGSIL PAP Procedure: COLPOSCOPY Tissue Removed 1. CX BX @1 2. CX BX @9 3. ECC LMP: Prev.Abn Pap: 07/2011 ----- ------- Name: ANIYA LUQUE ? : [birth year] ?Age/Sex: 34/F ?Unit#: [id number] ? Loc: AGO ? Status: REG POV ?? Reg Date: 09/04/11 ? Pt.Phone Number: ? ----- ------- Specimen: [id number] ? STATUS: SOUT ?Spec Date:09/04/11 ? Physician Copies: ?Vika Márquez MD ? Tissues: A ?? Female Reproductive System (CERVIX 1 O'CLOCK) ?Susie Hinton ? B ?? Female Reproductive System (CERVIX 9 O'CLOCK) ? C ?? Female Reproductive System (ENDOCERVIX) ? CPT: 26398 ?? Units: ??3 ?FINAL DIAGNOSIS ? A. ??Cervix, 1 o'clock, biopsy; ? - ?? Focal mild dysplasia, MARLON-1. ? B. ??Cervix, 9 o'clock, biopsy; ? - ?? Dysplasia, MARLON-2. ? C. ??Endocervix, curettage; ? - ?? Scanty fragments of mucoid debris, ? No endocervical glands identified. ? GROSS DESCRIPTION ? A. ??Received in formalin and labeled cervical biopsy 1 o'clock are mucosal ? tissue fragments 0.1 cm in greatest dimensions, e.s. ? B. ??Received in formalin and labeled cervical biopsy 9 o'clock is a mucosal ? tissue fragment 0.1 cm in greatest dimensions, e.s. ? C. ??Received in formalin and labeled ECC is a 0.5 cc aggregate of mucoid ? material and clot, e.s. ??BT ?? PREOP DX/CLINICAL HISTORY ?LGSIL PAP Signed ____(signature on file)____ Hussein Jean M.D. 09/06/11 ?? By the signature above, the attending physician certifies that he/she has personally conducted a gross and/or microscopic examination of the described specimens and rendered or confirmed the above diagnosis. Test Performed by [facility], [address] [place] [address] Hand Packer: Birdie Sexton MD PHD ----- ------- us Vika Márquez MD PATHOLOGY ORDERABLES Final Resu lt [facility] documented in this encounter Visit Diagnoses Not on filedocumented in this encounter Care Teams Industrial Welder Relationship Specialty Start Date End Date Brendon Shah MD [address] [place] [phone] PCP - General 06/03/09 02/13/16 Mary Trotter FNP [address] [place] [phone] PCP - General 02/14/16 09/02/22 documented as of this encounter
--- OUTSIDE RECORDS SUMMARY | 2024-09-20 11:18 | XMS_ITS | Encounter Summary ---
Author Organization [facility] Address [address] [place] [address] Care Team Providers Care Family Services Specialist Name Role Phone Brendon Shah MD Primary Care Provider Mray Trotter Primary Care Provider [phone] Encounter Details Date Type Department Care Team (Late st Contact Info) Description 09/20/2010 Historical Results Only [facility] Lab - Main [place] [address] [place] [phone] Vika Márquez MD [address] [place] [address], [address] [place] [address] Social History Tobacco Use Types [...] Date/Time Associated Diagnosis Comments PAP TEST Routine 09/20/2010 14:19 EST documented in this encounter Results * PAP TEST (09/20/2010 14:19 EST) 09/20/2010 14:1 9 EST 09/20/2010 17:09 EST Narrative [facility] - 09/28/2010 14:38 EST ----- ------- Name: ANIYA LUQUE ? : [birth year] ?Age/Sex: 34/F ?Unit#: [id number] ? Loc: AGO ? Status: REG POV ?? Reg Date: 09/20/10 ? Pt.Phone Number: ? ----- ------- Specimen: [id number] ?STATUS: SOUT ?Spec Date:09/20/10 ? Physician Copies: ?Vika Márquez MD ? Tissues: ? Cervical/Endo Pap ?Susie Hinton ? CPT: 33100 ?? Units: ??1 ----- ------- ? CYTOLOGY DIAGNOSIS SPECIMEN ADEQUACY: ?Satisfactory for evaluation. Transformation zone component present. GENERAL CATEGORIZATION: ?Epithelial Cell Abnormality. DESCRIPTIVE DIAGNOSIS: ??Squamous cell Abnormality - Atypical squamous cells - undetermined significance (ASC-US). RECOMMENDATIONS/COMMENTS: ??Recommend following the 2006 Consensus Guidelines for the Management of ??Women with Cervical Cytologic Abnormalities. ?? Management algorithms have been distributed and are also available online at www.ASCCP.org/consensus.shtml. ----- ------- ?HPV DNA RESULTS ?? 09/20/10 1433 HPV DNA RESULT ??POS ? Positive for one or more of HPV types 16, 18, 31, 33, 35, ? 39, 45, 51, 52, 56, 58, 59, 66, or 68. ? Method: Cervista HPV HR (High Risk) DNA test. ----- ------- ORDER QUERIES: LMP: UNSURE ??- ON DEPO-IN ?? ? N Post ? N ??PREVIOUS ATYPICAL: Y BCP/HRT? Y Rad Rx? N IUD? N ??PAP PLUS HPV? N ??REFLEX TO HR-HPV IF ASCUS ?? REFLEX TO HPV 16/18 IF HPV POS/PAP NEG ?? HPV REGARDLESS?RFLX HPV IF LSIL ?? IF ASCUS DO HPV? Y Signed ____(signature on file)____ Birdie Sexton M.D. 09/28/10 By the signature above, the attending physician certifies that he/she has personally conducted a gross and/or microscopic examination of the described specimens and rendered or confirmed the above diagnosis. Test Performed by [facility], [address] [place] [id number] Technical Solutions Consultant: Birdie Sexton MD PHD ----- ------- us Vika Márquez MD PATHOLOGY ORDERABLES Final Resu lt [facility] documented in this encounter Visit Diagnoses Not on filedocumented in this encounter Care Teams Family Services Specialist Relationship Specialty Start Date End Date Brendon Shah MD [address] [place] [phone] PCP - General 06/03/09 02/13/16 Mary Trotter, ENGINEERING ADMINISTRATOR [address] [place] [phone] PCP - General 02/14/16 09/02/22 documented as of this encounter
--- OUTSIDE RECORDS SUMMARY | 2024-09-20 11:18 | XMS_ITS | Encounter Summary ---
Author Organization [facility] Address [address] [place] [address] Care Team Providers Care Parimutuel Ticket Cashier Name Role Phone Mary Trotter MOON Primary Care Provider [phone] Encounter Details Date Type Department Care Team (Late st Contact Info) Description 02/29/2016 14:20 EDT - 02/29/2016 23:59 EDT Hospital Encounter [facility] [phone] Kellie Turner MD [address] [facility], [address] [place] [phone] Discharge Disposition: Home or Self Care Social History Tobacco Use Types Packs/Day Years Used Date Smoking Tobacco: Never Assessed Comments Yes Sex and Gender Information Value Date Recorded Sex Assigned at Not on file Legal Sex Female 18:29 EST Gender Identity Female 09/03/2022 13:23 EST Sexual Orientation Not on file documented as of this encounter Discharge Diagnoses Diagnosis Z36 Encounter for screening of mother-Z36[ICD-10-CM] documented in this encounter Medications at Time [...] Code Departure Means Destination Home or Self Half[place] documented in this encounter Plan of Treatment Not on file documented as of this encounter Visit Diagnoses Not on filedocumented in this encounter Care Teams Parimutuel Ticket Cashier Relationship Specialty Start Date End Date Mary Trotter FNP [address] [place] [phone] PCP - General 02/14/16 09/02/22 documented as of this encounter
--- OUTSIDE RECORDS SUMMARY | 2024-09-20 11:18 | XMS_ITS | Encounter Summary ---
Author Organization [facility] Address [address] [place] [address] Care Team Providers Care Shaper Setter Name Role Phone Brendon Shah MD Primary Care Provider Susie Hinton MD Primary Care Provider Encounter Details Date Type Department Care Team (Late st Contact Info) Description 01/06/2009 Before PRISM Converted Visit ([place]) [facility] - [place] conversion [address] [place] [address] Brendon Shah MD [address] [place] [phone] Social History Tobacco Use Types Packs/Day Years Used Date Smoking Tobacco: Never Assessed Comments Unknown Sex and Gender Information Value Date Recorded Sex Assigned at Not on file Legal Sex Female 18:29 EST Gender Identity Female 09/03/2022 13:23 EST Sexual Orientation Not on file documented as of this encounter Progress Notes * Brendon Shah - 11/22/2009 0251 EST [facility] PROGRESS/FOLLOWUP NOTE - 01/06/2009 REASON FOR VISIT: Congestion. SUBJECTIVE Patient with a 10-day history of ongoing cough and congestion. Occasionally has nausea with her cough. Slightly congested in the upper respiratory region. Occasional fevers. Positive malaise. She is five months . She has had what sounds like modest hyperemesis and has p.r.n. Zofran. Otherwise, she takes occasional Klonopin for her anxietyand generally doing well with this. She had been hospitalized within the last several months for anxiety but at this point appears stable. She initially was inquiring regarding an x-ray for her lungs as she had pneumonia, which apparently went unrecognized initially or developed into a worse infection from what was initially diagnosed a year ago. She does smoke but she is planning on quitting. OBJECTIVE Blood pressure 110/60, pulse 80, temperature 97.5. TMs abrker. Nose clear. Throat: No significant erythema. Neck: No lymphadenopathy, supple. Chest was clear to auscultation. Cardiovascular: Regular rate and rhythm, no murmur. ASSESSMENT A five-month , otherwise healthy woman who does smoke with upper respiratory infection, bronchitis. Given length of symptoms and degree of strength of cough,we will plan on empiric treatment with an antibiotic. In addition, she does have an oral herpes simplex virus eruption for which she is using a topical antibiotic. Did suggest a trial of Denavir if this should recur. It has already been present for almost a week and therefore little benefit in using this now. This is category B and should be reasonably safe when she does use this. PLAN 1. cream every two hours while awake to lesions for recurrence of cold sore. 2. Zithromax one Z-Cam, take as directed. 3. May continue current medicines as prescribed. 4. Ensure adequate fluids. 5. Discussed x-ray and mutually decided to hold off on this for now unless she would worse. She will follow up as needed. The patient was verbally educated on bronchitis. There were no barriers to learning and the patientverbalized understanding. Signed by Brendon Shah MD 01/16/2009 22:38 Brendon Shah MD P Job ID [id number] P/LILO Doc ID [id number] cc: cc: documented in this encounter Plan of Treatment Not on file documented as of this encounter Visit Diagnoses Not on filedocumented in this encounter Care Teams Shaper Setter Relationship Specialty Start Date End Date Brendon Shah MD [address] [place] [phone] PCP - General 06/03/09 02/13/16 Susie Hinton MD [address] [place] [phone] PCP - General 03/04/09 06/02/09 documented as of this encounter
--- OUTSIDE RECORDS SUMMARY | 2024-09-20 11:18 | XMS_ITS | Encounter Summary ---
Author Organization [facility] Address [address] [place] [address] Care Team Providers Care Fixed Wing Pilot Name Role Phone Mary Trotter Primary Care Provider [phone]- [phone] Encounter Details Date Type Department Care Team (Latest Contact Info) Description 12/16/2017 12:35 EST - 12/16/2017 23:59 EST Hospital Encounter [facility] [address] [place] [address] Unknown, Provider, MD Discharge Disposition: Home or [...] Code Departure Means Destination Home or Self Prison documented in this encounter Plan of Treatment Not on file documented as of this encounter Visit Diagnoses Not on filedocumented in this encounter Care Teams Fixed Wing Pilot Relationship Specialty Start Date End Date Mary Trotter FNP [address] [place] [phone] PCP - General 02/14/16 09/02/22 documented as of this encounter
--- OUTSIDE RECORDS SUMMARY | 2024-09-20 11:18 | XMS_ITS | Encounter Summary ---
Author Organization [facility] Address [address] [place] [address] Care Team Providers Care Heavy Equipment Service Technician Name Role Phone Brendon Shah MD Primary Care Provider Encounter Details Date Type Department Care Team (Late st Contact Info) Description 01/26/2010 Abstract [facility] [address] [facility] [address] [place] [address] Brendon Shah MD [address] [place] [address] [address] [place] [phone] Anxiety; Smoker; HSV infection; Chronic nausea; Anemia Social History Tobacco Use Types Packs/Day Years [...] of this encounter Visit Diagnoses Diagnosis Anxiety Anxiety state, unspecified Smoker Tobacco use disorder HSV infection Herpes simplex without mention of complication Chronic nausea Nausea alone Anemia Anemia, unspecified documented in this encounter Historical Medications * This list may reflect changes made after this encounter. ondansetron (ZOFRAN) 4 mg tablet Take 4 mg by mouth as needed for Nausea. clonazepam (KLONOPIN) 0.5 mg tablet Take 0.5 mg by mouth 3 times daily. DIPHENHYDRAMINE HCL (BENADRYL ALLERGY ORAL) Take by mouth as needed. added in this encounter Care Teams Heavy Equipment Service Technician Relationship Specialty Start Date End Date Brendon Shah MD [address] [place] [phone] PCP - General 06/03/09 02/13/16 documented as of this encounter
--- OUTSIDE RECORDS SUMMARY | 2024-09-20 11:18 | XMS_ITS | Encounter Summary ---
Author Organization [facility] Address [address] [place] [address] Care Team Providers Care Executive Casino Host Name Role Phone Brendon Shah MD Primary Care Provider Encounter Details Date Type Department Care Team (Latest Contact Info) Description 12/10/2013 13:22 EST - 12/10/2013 23:59 EST Hospital Encounter [facility] [address] [place] [address] Unknown, Provider, Discharge Disposition: Home or Self [...] Code Departure Means Destination Home or Self Long-Term documented in this encounter Plan of Treatment Not on file documented as of this encounter Visit Diagnoses Not on filedocumented in this encounter Care Teams Executive Casino Host Relationship Specialty Start Date End Date Brendon Shah MD [address] [place] [address] [address] [place] [phone] PCP - General 06/03/09 02/13/16 documented as of this encounter
--- OUTSIDE RECORDS SUMMARY | 2024-09-20 11:18 | XMS_ITS | Encounter Summary ---
Author Organization [facility] Address [address] [place] [address] Care Team Providers Care Clinical Appeals Reviewer Name Role Phone Mary Trotter DISPATCHER BUS AND TROLLEY Primary Care Provider [phone]- [phone] Encounter Details Date Type Department Care Team (Late st Contact Info) Description 12/10/2017 Historical Results Only [facility] Lab - Main [place] [address] [place] [address] Vika Márquez MD [address] [place] [address], [address] [place] [phone] Social History Tobacco Use Types [...] Procedure Name Priority Date/Time Associated Diagnosis Comments HPV DNA DETECTION WITH GENOTYPING, PCR Routine 12/10/2017 17:29 EST COMPLETE BLOOD COUNT WITH DIFFERENTIAL (AUTO) Routine 12/10/2017 16:40 EST TSH Routine 12/10/2017 16:40 EST GC/CHLAMYDIA PCR - [facility] Routine 12/10/2017 16:36 EST PAP TEST Routine 12/10/2017 documented in this encounter Results * HUMAN PAPILLOMAVIRUS (HPV) DETECTION-HIGH RISK TYPES (12/10/2017 17:29 EST) Pathologist [facility] HPV other High Risk types, PCR NEG 12/17/2017 14:46 EST [facility] Comment: Negative for HPV types 16, 18, 31, 33, 35, 39, 45, 51, 52, 56, 58, 59, 66, 68. Method: Cervista HPV HR (High Risk) DNA test. 12/10/2017 17:2 9 EST 12/10/2017 17:29 EST us Vika Márquez MD MICROBIOLOGY - GENERAL ORDERABL ES Final Result [facility] * TSH (12/10/2017 16:40 EST) Pathologist [facility] THYROID STIM HORMONE - [facility] 2.39 0.46 - 4.68 uIU/ml 12/10/2017 18:28 [facility] 12/10/2017 16:4 0 EST 12/10/2017 16:40 EST Narrative [facility] - 12/10/2017 18:28 EST Does PT Have a Latex Allergy? NO us Vika Márquez MD CHEMISTRY & BLOOD GAS ORDERABLE S Final Result [facility] * (ABNORMAL) COMPLETE BLOOD COUNT WITH DIFFERENTIAL (AUTO) (12/10/2017 16:40 EST) Pathologist [facility] ABSOLUTE NEUTROPHIL COUN - [facility] 6.53 1.7 - 7.0 10e3/ul 12/10/2017 18:56 [facility] BASO # - [facility] 0.03 0.0 - 0.3 10e3/uL 12/10/2017 18:56 [facility] BASO % - CV 0 0 - 2 % 12/10/2017 18:56 [facility] EOS # - [facility] 0.13 0.05 - 0.5 10e3/uL 12/10/2017 18:56 [facility] EOS % - [facility] 1 0 - 5 % 12/10/2017 18:56 [facility] GRAN % - [facility] 60 40 - 80 % 12/10/2017 18:56 [facility] HEMATOCRIT - [facility] 44.9 34.0 - 47.0 % 12/10/2017 18:56 [facility] HEMOGLOBIN - [facility] 15.0 11.2 - 15.7 g/dl 12/10/2017 18:56 [facility] IG# - [facility] 0.02 0 - 0.07 10e3/uL 12/10/2017 18:56 [facility] IG% - [facility] 0.2 0 - 0.9 % 12/10/2017 18:56 [facility] LYMPH # - [facility] 3.59(H) 0.9 - 2.9 10e3/uL 12/10/2017 18:56 [facility] LYMPH% - [facility] 33 20 - 40 % 12/10/2017 18:56 [facility] MEAN CORPUSCULAR HGB - CV 29.3 26 - 34 pg 12/10/2017 18:56 [facility] MEAN CORPUSCULAR HGB CONC - [facility] 33.4 31 - 36 g/dL 12/10/2017 18:56 [facility] MEAN CELL VOLUME - [facility] 87.7 77 - 100 fl 12/10/2017 18:56 [facility] MONO # - [facility] 0.65 0.3 - 0.9 10e3/uL 12/10/2017 18:56 [facility] MONO% - [facility] 6 0 - 12 % 12/10/2017 18:56 [facility] PLATELET COUNT 272 150 - 400 10e3/ul 12/10/2017 18:56 [facility] RED BLOOD COUNT - [facility] 5.12 3.8 - 5.2 10e6/ul 12/10/2017 18:56 [facility] RED CELL DISTRI WIDTH - [facility] 13.6 11.8 - 15.6 % 12/10/2017 18:56 [facility] WHITE BLOOD COUNT - [facility] 11.0(H) 3.5 - 10.5 10e3/ul 12/10/2017 18:56 EST [facility] 12/10/2017 16:4 0 EST 12/10/2017 16:40 EST Narrative [facility] - 12/10/2017 18:56 EST Does PT Have a Latex Allergy? NO us Vika Márquez MD HEMATOLOGY & PF4 ORDERABLES Fin al Result [facility] * GC/CHLAMYDIA PCR - [facility] (12/10/2017 16:36 EST) CHLAMYDIA PCR - [facility] NOT DETECTED 12/10/2017 21:48 EST [facility] GONORRHEA PCR - [facility] NOT DETECTED 12/10/2017 21:48 EST [facility] SOURCE CERVIX 12/10/2017 21:48 EST [facility] 12/10/2017 16:3 6 EST 12/10/2017 16:56 EST us Vika Márquez MD CHEMISTRY & BLOOD GAS ORDERABLE S Final Result Performing Organization Address [facility] Co de Phone Number [facility] * PAP TEST (12/10/2017) 12/10/2017 12/10/2017 17: 25 EST Narrative [facility] - 12/17/2017 14:56 EST ----- ------- Name: ANIYA LUQUE ? : [birth year] ?Age/Sex: 33/F ?Unit#: [id number] ? Loc: AGO ? Status: REG POV ?? Reg Date: 12/10/17 ? Pt.Phone Number: ? ----- ------- Specimen: [id number] ? STATUS: SOUT ?Spec Date:12/10/17 ? Physician Copies: ?Vika Márquez MD ? Tissues: ? Cervical/Endo Pap ?Mary Trotter APR CPT: 04966 ?? Units: ??1 ----- ------- ? CYTOLOGY DIAGNOSIS SPECIMEN ADEQUACY: ?Satisfactory for evaluation. Transformation zone component present. GENERAL CATEGORIZATION: ?Negative for Intraepithelial Lesion or Malignancy DESCRIPTIVE DIAGNOSIS: ?Fungal organisms present morphologically consistent with Natalia species. ----- ------- ?HPV DNA RESULTS ? LABORATORY ?? Date ? Time Test ?Result ?? Flag ?Normal Range ?? 12/10/179 HPV DNA RESULT ??NEG ? Negative for HPV types 16, 18, 31, 33, 35, 39, 45, 51, 52, ? 56, 58, 59, 66, 68. ? Method: Cervista HPV HR (High Risk) DNA test. ----- ------- ORDER QUERIES: LMP: 11/2017 ??- 11/2017 ? N Post ? N ??PREVIOUS ATYPICAL: Y BCP/HRT? Y Rad Rx? N IUD? N ??PAP PLUS HPV? Y ??REFLEX TO HR-HPV IF ASCUS Y REFLEX TO HPV 16/18 IF HPV POS/PAP NEG Y HPV REGARDLESS? Y ??RFLX HPV IF LSIL ?? Signed Roverto Castro CT(ASCP) 12/17/17 By the signature above, the attending physician certifies that he/she has personally conducted a gross and/or microscopic examination of the described specimens and rendered or confirmed the above diagnosis. Test Performed by [facility], [address] [place] [id number] Plate Washer: Birdie Sexton MD PHD ----- ------- us Vika Márquez MD PATHOLOGY ORDERABLES Final Resu lt [facility] documented in this encounter Visit Diagnoses Not on filedocumented in this encounter Care Teams Clinical Appeals Reviewer Relationship Specialty Start Date End Date Mary Trotter FNP [address] [place] [phone] PCP - General 02/14/16 09/02/22 documented as of this encounter
--- OUTSIDE RECORDS SUMMARY | 2024-09-20 11:18 | XMS_ITS | Encounter Summary ---
Author Organization [facility] Address [address] [place] [address] Care Team Providers Care Monitoring Manager Name Role Phone Brendon Shah MD Primary Care Provider Mary Trotter Primary Care Provider [phone] Encounter Details Date Type Department Care Team (Late st Contact Info) Description 01/31/2014 Historical Results Only [facility] - Main [place] [address] [place] [address] [phone] Vika Márquez MD [address] [place] [address], [address] [place] [address] Social History Tobacco Use Types [...] Date/Time Associated Diagnosis Comments PAP TEST Routine 01/31/2014 17:45 EDT documented in this encounter Results * PAP TEST (01/31/2014 17:45 EDT) 01/31/2014 17:4 5 EDT 01/31/2014 17:45 EDT Narrative [facility] - 02/04/2014 14:09 EDT ----- ------- Name: ANIYA LUQUE ? : [birth year] ?Age/Sex: 34/F ?Unit#: [id number] ? Loc: AGO ? Status: REG POV ?? Reg Date: 01/31/14 ? Pt.Phone Number: ? ----- ------- Specimen: [id number] ?STATUS: SOUT ?Spec Date:01/31/14 ? Physician Copies: ?Vika Márquez MD ? Tissues: ? Cervical/Endo Pap ?Mary Trotter APR CPT: 79033 ?? Units: ??1 ----- ------- ? CYTOLOGY DIAGNOSIS SPECIMEN ADEQUACY: ?Satisfactory for evaluation. Transformation zone component present. GENERAL CATEGORIZATION: ?Negative for Intraepithelial Lesion or Malignancy DESCRIPTIVE DIAGNOSIS: ? Negative for Intraepithelial Lesion or Malignancy. ----- ------- ?HPV DNA RESULTS ?? 01/31/14 1231 HPV DNA RESULT ??NEG ? Negative for HPV types 16, 18, 31, 33, 35, 39, 45, 51, 52, ? 56, 58, 59, 66, 68. ? Method: Cervista HPV HR (High Risk) DNA test. ----- ------- ORDER QUERIES: LMP: 04/14/14- ? N Post ? N ??PREVIOUS ATYPICAL: Y BCP/HRT? N Rad Rx? N IUD? N ??PAP PLUS HPV? Y ??REFLEX TO HR-HPV IF ASCUS Y REFLEX TO HPV 16/18 IF HPV POS/PAP NEG Y HPV REGARDLESS? Y ??RFLX HPV IF LSIL ?? Signed Raul Mcknight CT(ASCP) 02/04/14 By the signature above, the attending physician certifies that he/she has personally conducted a gross and/or microscopic examination of the described specimens and rendered or confirmed the above diagnosis. Test Performed by [facility], [address] [place] [id number] Net Mender: Birdie Sexton MD PHD ----- ------- us Vika Márquez MD PATHOLOGY ORDERABLES Final Resu lt [facility] documented in this encounter Visit Diagnoses Not on filedocumented in this encounter Care Teams Monitoring Manager Relationship Specialty Start Date End Date Brendon Shah MD [address] [place] [phone] PCP - General 06/03/09 02/13/16 Mary Trotter FNP [address] [place] [phone] PCP - General 02/14/16 09/02/22 documented as of this encounter
--- OUTSIDE RECORDS SUMMARY | 2024-09-20 11:18 | XMS_ITS | Encounter Summary ---
Author Organization [facility] Address [address] [place] [address] Care Team Providers Care Ending Machine Operator Name Role Phone Unavailable Primary Care Provider Unavailabl e Encounter Details Date Type Department Care Team (Late st Contact Info) Description 03/26/2002 15:00 EDT Hospital Encounter [facility] - Other [address] [place] [address] Hussein Welsh MD Unknown, Provider, MD Social History Tobacco Use Types Packs/Day [...] Date/Time Associated Diagnosis Comments SURGICAL PATHOLOGY Routine 03/26/2002 0:00 EDT documented in this encounter Results * SURGICAL PATHOLOGY (03/26/2002 0:00 EDT) Pathology Report: SURGICAL PATHOLOGY REPORT Reports generated via electronic interface contain original data; however they are lacking the format of the original report. Caution should be taken when reading/interpreti ng unformatted reports. Name: ? ANIYA LUQUE ? Accession #: ? [id number] ? : ? 1985 (Age: 16) ??F ? Collect Date: ? 03/26/2002 ? Location: ? [facility] ? Receive Date: ? 03/26/2002 ? Provider: HUSSEIN WELSH MD Copy to: SHAYNE JARA MD ? Final Pathologic Diagnosis: A. ?PAP smear ([id number]), satisfactory for evaluation: 1. ?Low grade squamous intraepithelial lesion (LSIL). B. ?Cervix, biopsy: 1. 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 ??See comment. Comment: ? Thank you for the opportunity to review this case in consultation. ??I agree with your interpretation that there is low grade squamous intraepithelial lesion present on the PAP smear but not present in the cervical biopsy. ??In this scenario, we examine deeper levers of the biopsy. ??Since low grade dysplasia frequently regresses, this may in fact be what has happened in this patient. Thank you, once again, for sending this case in consultation. ??(Dr. Glynn[facility] Document reviewed and electronically signed by: ROSA GLYNN MD Report ??Date: 03/29/2002 17:08 By the signature above, the attending physician certifies that he/she has personally conducted a gross and/or microscopic examination of the described specimens and rendered or confirmed the above diagnosis. Specimen(s) Received: ? [facility] [id number] (1), [id number] (1) Clinical History: ? Abnl PAP Gross Description: ? Two slides are received for review from [facility], one each labelled [id number], [id number]. ?? End of Report [facility] 03/26/2002 03/26/2002 11: 00 EDT us Hussein Welsh MD PATHOLOGY ORDERABLES Final Resul t [facility] [address] [place] [address] documented in this encounter Visit Diagnoses Not on filedocumented in this encounter Additional Health Concerns Infection Onset Date Last Indicated Resolved Time R/O COVID-19 09/03/2022 09/03/2022 09/08/2022 22:1 8 EST documented as of this encounter
--- OUTSIDE RECORDS SUMMARY | 2024-09-20 11:18 | XMS_ITS | Encounter Summary ---
Author Organization [facility] Address [address] [place] [address] Care Team Providers Care Supervisor Home Energy Consultant Name Role Phone Brendon Shah MD Primary Care Provider Mary Trotter Primary Care Provider [phone] Encounter Details Date Type Department Care Team (Late st Contact Info) Description 01/05/2016 Historical Results Only [facility] Radiology Results [address] [place], [place] [address] Shahrzad Albarado MD [address] [facility] [address] [place] [address] Social History Tobacco Use Types [...] OB FIRST TRIMESTER (LESS THAN 14 WEEKS) TRANSABDOMINAL 01/05/2016 15:35 EDT documented in this encounter Results * US OB FIRST TRIMESTER (LESS THAN 14 WEEKS) TRANSABDOMINAL (01/05/2016 15:35 EDT) Anatomical Region Laterality Modality Pelvis Other 01/05/2016 15:3 5 EDT Narrative 01/08/2016 9:58 EDT ? EXAM: ULTRASOUND/OB-LEVEL 1 (TRANSABDOMIN EX. D/ (1535) ? CLINICAL INFORMATION: ? 14WK PREGNACY, LOWER ABDOMINAL PAIN R10.3 ? See attached report. ??Report also available in PACS. ? COMMISSARY HELPER:mary ?Reported By: Nickolas Balbuena MD ? CC: ? Transcribed Date/Time: 01/08/2016 (0958) ? Child Welfare Director: KRISTEN ? Printed Date/Time: 04/01/2019 (7726) ? PAGE 1 ? Signed Report ? Procedure Note Nickolas Balbuena MD - 08/25/2019 EXAM: ULTRASOUND/OB-LEVEL 1 (TRANSABDOMIN EX. D/ (1535) CLINICAL INFORMATION: 14WK PREGNACY, LOWER ABDOMINAL PAIN R10.3 See attached report. Report also available in PACS. COMMISSARY HELPER:mary Reported By: Nickolas Balbuena MD CC: Transcribed Date/Time: 01/08/2016 (0958) Child Welfare Director: KRISTEN Printed Date/Time: 04/01/2019 (4639) PAGE 1 Signed Report us Shahrzad Albarado MD IMG US OB ORDERABLES Final Re sult documented in this encounter Visit Diagnoses Not on filedocumented in this encounter Care Teams Supervisor Home Energy Consultant Relationship Specialty Start Date End Date Brendon Shah MD [address] [place] [address] [phone] PCP - General 06/03/09 02/13/16 Mary Trotter FNP [address] [place] [phone] PCP - General 02/14/16 09/02/22 documented as of this encounter
== END 2024-10-19 23:59 | disposition home or self-care (01) ==
LOC: INF 10:58
PROVIDERS: PCP Obstetrics & Gynecology Gynecology; Visit Provider Obstetrics & Gynecology Gynecology
DX: O99.013 Anemia complicating pregnancy, third trimester (principal)
CPT/HCPCS: 36415; 85018

== ENCOUNTER 2024-12-01 13:03 | Outpatient (REF) | payer MEDICAID, SELFPAY | END 2024-12-01 13:04 | disposition home or self-care (01) | LOC: LBN 13:03 | PROVIDERS: PCP Obstetrics & Gynecology Gynecology; Visit Provider Obstetrics & Gynecology Gynecology | DX: N89.8 Other specified noninflammatory disorders of vagina (principal) | CPT/HCPCS: 87480; 87510; 87660 ==